=== PATIENT | female | born 1945 | race Caucasian/White ===

== ENCOUNTER 2016-04-19 09:11 | Inpatient (IN) | payer OTHER ==
[2016-03-27 08:21] VITALS: BMI 39.0
--- NOTE | 2016-03-27 09:04 | PAT Medication Instructions ---
Service Date Mar 27, 2016. Current Home Medication List Atorvastatin Calcium (Lipitor), 80 MG PO DAILY Betahistine Hydrochloride (Bul (Betahistine Dihydrochlori), 16 MG PO BID Gabapentin (Neurontin), 900 MG PO HS Hydrocortisone 1% (Hydrocortisone 1%), 1 DOSE TOP UD Hydroxyzine HCl (Hydroxyzine HCl), 1 TAB PO Q6H PRN for itching and sleep Levothyroxine Sodium (Levothyroxine Sodium), 1 TAB PO QAM Lisinopril/Hctz (Zestoretic 20MG/25MG), 1 TAB PO QAM Magnesium Chloride (Slow-Mag Tab), 2 TAB PO DAILY Melatonin (Melatonin Maximum Strengt), 10 MG PO HS Metformin Hcl Er (Glucophage Er), 2 TABS PO BID Omeprazole (Prilosec), 20 MG PO QAM Ropinirole (Requip), 3 TAB PO HS Triamcinolone Acet 0.1% (Aristocort 0.1%), 1 DOSE TOP BID Venlafaxine Hcl (Venlafaxine Extended Rel), 3 TABS PO QAM Zinc Sulfate (Zinc Sulfate), 220 MG PO QAM [miconazole 2% powder], 1 DOSE TOP UD Medication Instructions For Your Scheduled Surgery - Hold the following medications 48 hours prior to surgery: Metformin Hcl Er (Glucophage Er), 2 TABS PO BID - Hold the following medications 24 hours prior to surgery: Ropinirole (Requip), 3 TAB PO HS Hydrocortisone 1% (Hydrocortisone 1%), 1 DOSE TOP UD [miconazole 2% powder], 1 DOSE TOP UD Triamcinolone Acet 0.1% (Aristocort 0.1%), 1 DOSE TOP BID - Hold the following medications the morning of surgery: Zinc Sulfate (Zinc Sulfate), 220 MG PO QAM Lisinopril/Hctz (Zestoretic 20MG/25MG), 1 TAB PO QAM Magnesium Chloride (Slow-Mag Tab), 2 TAB PO DAILY - TAKE the following medications the morning of surgery with a sip of water OTHERWISE NOTHING TO EAT OR DRINK AFTER MIDNIGHT: Atorvastatin Calcium (Lipitor), 80 MG PO DAILY Levothyroxine Sodium (Levothyroxine Sodium), 1 TAB PO QAM Omeprazole (Prilosec), 20 MG PO QAM Venlafaxine Hcl (Venlafaxine Extended Rel), 3 TABS PO QAM Betahistine Hydrochloride (Bul (Betahistine Dihydrochlori), 16 MG PO BID - Take the following medications as scheduled the night before surgery: Gabapentin (Neurontin), 900 MG PO HS Hydroxyzine HCl (Hydroxyzine HCl), 1 TAB PO Q6H PRN for itching and sleep Melatonin (Melatonin Maximum Strengt), 10 MG PO HS Betahistine Hydrochloride (Bul (Betahistine Dihydrochlori), 16 MG PO BID If you have any questions please call us at [phone] (Otilia Busby PA-C ) or [phone] or [phone]
[2016-03-27 10:37] LABS: PROTHROMBIN TIME (PATIENT) 10.3 SECONDS (9.0-12.0)
--- NOTE | 2016-04-16 14:36 | HISTORY & PHYSICAL EXAMINATION ---
DATE OF ADMISSION: 04/19/2016 CHIEF COMPLAINT: Right knee pain. HISTORY OF PRESENT ILLNESS: This is a patient who has been treated conservatively for right knee osteoarthritis. She has failed all conservative management and now with right knee arthritis. She is currently being set up for right total knee arthroplasty. PAST MEDICAL HISTORY: Sleep apnea with use of CPAP, diabetes, history of neck and lower back pain, acid reflux, obesity. SOCIAL HISTORY: The patient denies alcohol and tobacco use. FAMILY HISTORY: Noncontributory. PAST SURGICAL HISTORY: Left knee surgery and a spinal surgery. ALLERGIES: No known drug allergies. CURRENT MEDICATIONS: Atorvastatin, venlafaxine, clonazepam, tirosint, lisinopril and ibuprofen. OBJECTIVE PHYSICAL EXAMINATION: GENERAL: The patient is alert and oriented x3. She is in no acute distress. She is a well-dressed, well-nourished 70-year-old female. Her affect is appropriate. CARDIOVASCULAR: Heart has a regular rhythm and rate without murmurs. LUNGS: Clear to auscultation bilaterally. Dorsalis pedis, posterior tib pulse +2/4. Cap refill is less than 2 seconds. LYMPHATICS: No evidence of any swollen lymph nodes. MUSCULOSKELETAL: The patient has an antalgic gait favoring the right lower extremity. Upon inspection of the right lower extremity, there is swelling noted of the right knee. There is also a mild to moderate knee effusion. With palpation, she has tenderness at the medial and lateral joint spaces. There is pain and crepitation noted with the right knee with passive and active range of motion. She has decrease in strength secondary to pain. SKIN: There are no scars, rashes or ulcers noted right lower extremity. NEUROLOGIC: Sensation normal intact distally right lower extremity. X-RAY EXAM: Multiple views of the right knee demonstrate severe osteoarthritis of the right knee with subchondral sclerosis and spurring. ASSESSMENT AND DIAGNOSES: Right knee osteoarthritis. PLAN: Above assessment was discussed with the patient. At this time it was recommended the patient undergo a right total knee arthroplasty. All potential risks, benefits, complications, alternatives and rehab have been discussed with the patient. The plan for DVT prophylaxis will be aspirin 81 mg twice per day for 30 days postoperative. The patient wishes to proceed with the surgery as indicated and will be scheduled for the surgery on 04/19/2016. BRENDA
[~2016-04-19] VITALS: Ht 160 cm; Wt 102.3 kg
[2016-04-19] VITALS (8 sets, daily range): BP systolic 143–168; BP diastolic 75–84; PULSE 68–80; TEMP 36.3–37.2; O2SAT 91–96; Ht 160 cm; Wt 102.3 kg
[~2016-04-19 09:11] MED LIST: ACETAMINOPHEN 500 MG TAB PO SCH; ATR25 PO; BETAPOW PO; BUPIVACAINE 0.5 % 5 MG/1 ML PF 10ML VIAL ONE; CEFAZOLIN 2000 MG/60 ML D5W 60 ML IV SCH; CeleBREX 200 MG CAP PO SCH; DEXAMETHASONE 4 MG TAB PO SCH; FAMOTIDINE 20 MG TAB PO SCH; GABA-113 PO; GABAPENTIN 300 MG CAP PO SCH; HYDCR1CL TOP; LACTATED RINGER'S 1000ML 1,000 ML IV SCH; LACTATED RINGER'S 1000ML IV SCH; LACTATED RINGER'S 500 ML IV SCH; LEVO125T4 PO; LISI-788 PO; MELATAB2 PO; METF500T5 PO; METOCLOPRAMIDE HCL 10 MG TAB PO SCH; MICONAZOLE 2% TOP; ROPI0.5T15 PO; ROPIVACAINE 5MG/ML 30 ML 150 MG, BUPIVACAINE/EPINEPHR 0.5% MPF 30 ML, KETOROLAC TROMETH... INFIL SCH; VENL75CA73 PO
[2016-04-19] MEDS ORDERED: MIDAZOLAM HCL 1 MG/ML 2ML VIAL ONE (09:17)
[2016-04-19] MEDS ORDERED: FENTANYL CITRATE INJ 50 MCG/1 ML 2 ML VIAL ONE (09:18)
[2016-04-19] MEDS ORDERED: NURSING VERBAL MED ORDER STA (09:44)
[2016-04-19] MEDS ORDERED: ORTHO JOINT ANESTHETIC ONE (09:49)
[2016-04-19] MEDS ORDERED: ONDANSETRON INJ 2 MG/ML 2 ML VIAL IV PRN ×2 (10:45→13:45)
[2016-04-19] MEDS ORDERED: EpHEDrine SULFATE INJ 50 MG/ML AMP IV PRN (10:45)
[2016-04-19] MEDS ORDERED: ATROPINE SULFATE 0.1 MG/ML 5ML SYR IV PRN (10:45)
[2016-04-19] MEDS ORDERED: FENTANYL CITRATE INJ 50 MCG/1 ML 2 ML VIAL IV PRN (10:45)
[2016-04-19] MEDS: TRANEXAMIC ACID INJ 1,000 MG in SODIUM CHLORIDE 0.9% 100ML 100 ML IV SCH ×2 (10:48→15:34)
--- NOTE | 2016-04-19 10:57 | History & Physical Bridge Note ---
H&P Re-Evaluation Bridge Note: I have examined the patient, reviewed the History & Physical and in the interval since the performance of the History & Physical I have noted the following changes of clinical significance: No changes noted
[2016-04-19] MEDS ORDERED: PROPOFOL IV EMULSION 10 MG/ML 20 ML VIAL IV ONE (12:17)
[2016-04-19] MEDS ORDERED: LIDOCAINE HCL 2% 2 ML VIAL (20MG/ML) ONE (12:17)
[2016-04-19] MEDS ORDERED: PHENYLEPHRINE 100MCG/ML 5ML SYR ONE (12:18)
--- NOTE | 2016-04-19 13:21 | [facility] Post Operative Brief Note ---
Immediate Operative Summary Operative Date Apr 19, 2016. Pre-Operative Diagnosis Right Knee Degenerative Joint Disease, Osteoarthritis Post-Operative Diagnosis Right Knee Degenerative Joint Disease, Osteoarthritis Procedure(s) Performed Right Total Knee Arthroplasty w/ Seda Lemons [address] Tunde Del Real Drain Tile Machine Operator Surgeon(s) Quincy Diaz PA-C Estimated Blood Loss 10mL Findings See Dict Specimens A. Right Knee Bone and Tissue Drains HV x 2 Anesthesia Spinal w/ sedation, Adductor Canal block, Intraarticular Joint Injection Complication(s) None Disposition Recovery Room / PACU
[2016-04-19] MEDS ORDERED: BACITRACIN 50000 UNIT VIAL IR ONE (13:22)
[2016-04-19] MEDS ORDERED: POVIDONE-IODINE OP SOLN 30 ML BTL TOP ONE (13:22)
[2016-04-19] MEDS ORDERED: ZOLPIDEM TARTRATE 5 MG TAB PO PRN (13:45)
[2016-04-19] MEDS ORDERED: MAGNESIUM HYDROXIDE SUSP 30 ML UDC PO PRN (13:45)
[2016-04-19] MEDS ORDERED: hydrOXYzine HCL 25 MG TAB PO PRN (13:45)
[2016-04-19] MEDS ORDERED: DiphenhydrAMINE HCL 50 MG/ML VIAL IV PRN (13:45)
[2016-04-19] MEDS ORDERED: ALUMINUM/MAGNESIUM/SIMETH (MAALOX MAX) 30 ML UDC PO PRN (13:45)
[2016-04-19] MEDS ORDERED: MoRPHine SULFATE 2 MG/ML CARP IV PRN ×2 (13:45→15:15)
[2016-04-19] MEDS ORDERED: BISACODYL 10 MG SUPP PR PRN (13:45)
--- NOTE | 2016-04-19 13:50 | OPERATIVE REPORT ---
DATE OF OPERATION: 04/19/2016 PREOPERATIVE DIAGNOSES: 1. Right knee degenerative joint disease. 2. Osteoarthritis, right knee. POSTOPERATIVE DIAGNOSES: Same. PROCEDURE: Right total knee arthroplasty using a [employer] II MRI matched knee, size 4 femur, size 2 tibia, 13 mm posterior stabilized polyethylene and a 29 mm patella. SURGEON: Dr. Del Real. WIDE AREA NETWORK ADMINISTRATOR: ROD Salazar, who was present for patient positioning, sterile prep and drape, management of retractors and instruments. He was present through the critical portions of the case including wound closure, application of sterile dressing and transport of the patient to recovery. ANESTHESIA: Spinal sedation and adductor canal block with intraarticular joint injection. SPECIMENS: Bone and tissue from the right knee. DRAINS: Hemovac x2. COMPLICATIONS: None. BLOOD LOSS: 15 mL PERTINENT HISTORY: This is a 70-year-old woman who had suffered from progressive chronic and worsening right knee pain and degenerative joint disease. This has been ongoing for several years. She has attempted conservative management including shoewear modification, activity modification, anti-inflammatories, rest, use of an assistive device, use of a brace, intraarticular steroid injections, physical therapy, home exercises and viscosupplementation. She eventually failed all measures and opted for surgical reconstruction. The radiographs demonstrated complete loss of joint space, marginal osteophytes, subchondral sclerosis and subchondral cysts within the joint. The patient was scheduled for surgery as indicated. OPERATION AND FINDINGS: PROCEDURE: The patient was taken to the Operating Suite and placed supine on the Operating Room table after the patient had been administered spinal epidural anesthetic and femoral nerve block in the preop holding area. The patient was sedated. The Proper operative site was identified and the consent was reviewed. The tourniquet was placed high on the right lower extremity. Right lower extremity was then sterilely prepped and draped in the usual fashion. Elevated and exsanguinated with an Esmarch bandage. Tourniquet inflated to 350 mmHg. Next a midline 10-blade scalpel incision was made directly over the middle one-third of the patella extending to the level of the tibial tubercle. The incision was deepened through the subcutaneous tissue and meticulous hemostasis with electrocautery. Full-thickness skin flaps were developed taking care to avoid neurovascular bundles. Next, median parapatellar capsular incision was made 10-blade scalpel after the superior medial corner had been marked with a marking pen for later reapproximation. Next, patella was everted. Soft tissue releases were performed of the knee including along the anterior medial corner to the level of the MCL which was protected and released adjacent to the MCL with Feuntes elevator. Fat pad was resected anteriorly and small half crockett portion of tissue was resected at the superior margin of the dermal articular surface. Next, the patella thickness was measured with caliper and held in everted position with Mandi. Next, sagittal saw was used to make orthogonal cuts to the level of the patellar nose. Caliper was used to remeasure the patella and the appropriate sized patellar button, in this case size 29 mm was felt to be most appropriate. The alignment guide was then put in place. Peg holes were drilled and alignment guide was then removed. Next, the femoral cutting block was placed in the distal aspect of the femur and pinned in place. Next the distal femoral cut was made based off the patient's anatomy and MRI patient matched cutting block. Next, a size 4 distal 4-in-1 cutting block was tamped in place then stabilized with pins. Next, the appropriate soft tissue retraction was made and anterior chamfer and posterior chamfer cuts were made with the sagittal saw. Next, the 4-in-1 cutting block was then removed followed by removal of all bone fragments. Next, attention was then directed toward the proximal tibia. Blunt Justice was placed posterior to the tibia to protract it anteriorly and median and lateral sharp Justice retractors were placed. Soft tissue and portion of the menisci were then resected at this time and MRI matched proximal tibial cutting block was then pinned in place and proximal tibial cut was made with sagittal saw. Alignment guide was removed. Pins were removed and the proximal fragment of the tibia was then sharply excised and removed. Next, proximal tibial tray trial size 2 was then pinned in place and this was felt to be well matched for the patient's anatomy, pinned in place and keel punch was then utilized with mallet. Keel punch was then removed and cervical laminar kennel keeper was then placed in the medial compartment. The lateral compartment was then inspected for osteophytes and soft tissue impingement. There was found to be none. I then switched to the lateral compartment and medial compartment was then debrided of any soft tissue impingement. Next the laminar kennel keeper was removed and the femoral trial, in this case size 4 was then malleted in place, pinned and then femoral notch milling guide was then placed anteriorly. This was then reamed and then punched with sharp punch and mallet. Next, the distal aspect of the femur was then inserted in notch guide and size 13 mm poly was inserted, reduced. Patellar button was then placed in trial and range of motion was performed. Next after range of motion and stability test was performed the implants were found to be appropriate size. Trials were all removed. The posterior capsule was injected with Orthomix. Next the joint was then cleansed with pulsatile lavage using approximately 3 liters normal saline with Bacitracin additive. Next all bony surfaces were the suctioned and drained and standard cementing technique was performed with Palacos G and all excess cement was then removed from around the implant site. 13 mm posterior stabilized polyethylene bearing was implanted and checked for stability. The patellar button was then cemented in place and held in place with patellar clamp. Next, double lumen 10 Wallisian Hemovac drain was then placed and exiting anterolaterally and the capsule was closed using interrupted #1 Vicryl sutures. The dermis was closed using buried interrupted 2-0 Vicryl and the skin closed with skin isis. A sterile compressive dressing was applied from the toes to the groin and overwrapped with Oscar wrap. Tourniquet was released. The patient was awakened and taken to recovery in stable condition. I attest to the content of the Intraoperative Record and any orders documented therein. Any exceptions are noted below. BRENDA
--- NOTE | 2016-04-19 14:16 | DIAGNOSTIC IMAGING REPORT ---
TWO VIEWS RIGHT KNEE CLINICAL HISTORY: Postoperative examination. FINDINGS: AP and crosstable lateral portable views of the right knee are obtained. A right knee arthroplasty is in near anatomic alignment. There has been undersurface remodeling of the patella. No acute fracture is seen. There are expected postoperative changes around the knee including skin clips, a surgical drain, soft tissue edema, and subcutaneous gas. IMPRESSION: Expected postoperative changes status post right knee arthroplasty. No acute fracture is seen. Electronically signed by: Deep Smith M.D. 04/19/2016 2:14 PM Dictated Date/Time: 04/19/2016 2:14 PM
--- NOTE | 2016-04-19 15:08 | Anesthesiology Progress Note ---
Anesthesia Post Op Note Date & Time Apr 19, 2016 at 15:08 Vital Signs Pain Intensity: 0.0 Vital Signs Past 12 Hours Date Time Temp Pulse Resp B/P Pulse Ox O2 Delivery O2 Flow Rate FiO2 04/19/16 14:35 Nasal Cannula 04/19/16 14:35 36.3 79 12 145/82 95 Nasal Cannula 3.0 04/19/16 14:35 95 Nasal Cannula 3.0 04/19/16 14:23 132/70 04/19/16 14:21 81 14 04/19/16 14:21 81 14 92 04/19/16 14:18 130/74 04/19/16 14:16 79 16 91 04/19/16 14:16 80 16 04/19/16 14:13 137/81 04/19/16 14:11 78 13 04/19/16 14:11 78 13 91 04/19/16 14:08 148/63 04/19/16 14:06 80 14 93 04/19/16 14:06 80 14 04/19/16 14:05 37 82 15 04/19/16 14:05 81 15 92 04/19/16 14:03 150/66 04/19/16 14:00 80 15 94 04/19/16 14:00 80 15 04/19/16 13:58 149/79 04/19/16 13:55 82 14 95 04/19/16 13:55 82 14 04/19/16 13:53 152/73 04/19/16 13:50 78 14 99 04/19/16 13:50 78 14 04/19/16 13:48 152/91 04/19/16 13:45 80 16 04/19/16 13:45 80 16 99 04/19/16 13:43 165/72 04/19/16 13:40 79 20 100 04/19/16 13:40 80 20 04/19/16 13:38 168/85 04/19/16 13:36 188/86 04/19/16 13:35 36.4 82 16 168/85 96 Nasal Cannula 2 04/19/16 13:35 80 04/19/16 13:35 80 93 04/19/16 09:53 37.2 80 18 155/75 93 Room Air Notes Mental Status: alert / awake / arousable, participated in evaluation Pt Amnestic to Procedure: Yes Nausea / Vomiting: adequately controlled Pain: adequately controlled Airway Patency, RR, SpO2: stable & adequate BP & HR: stable & adequate Hydration State: stable & adequate Neuraxial Anesthesia: was administered, sensory block is resolving Anesthetic Complications: no major complications apparent
[2016-04-19] MEDS ORDERED: MoRPHine SULFATE 10 MG/ML CARP/VIAL IV PRN (15:15)
[2016-04-19] MEDS ORDERED: MoRPHine SULFATE 4 MG/ML 1 ML CARP\\VIAL IV PRN (15:15)
[2016-04-19] MEDS: SODIUM CHLORIDE 0.9% 1000ML 1,000 ML IV SCH ×2 (15:52→23:47)
[2016-04-19] MEDS ORDERED: GLUCOSE 40% GEL 15 GM TUBE PO PRN (16:30)
[2016-04-19] MEDS ORDERED: GLUCAGON FOR INJ 1 MG VIAL SQ PRN (16:30)
[2016-04-19] MEDS ORDERED: GLUCOSE 10 TABS/TUBE PO PRN (16:30)
[2016-04-19] MEDS ORDERED: DEXTROSE 50% 50 ML SYR IV PRN (16:30)
--- NOTE | 2016-04-19 16:55 | Medical Consult ---
Consultation Date of Consultation: Apr 19, 2016. Attending Physician: Tunde Del Real D.O. Reason for Consultation: Postop Medical Management History of Present Illness Patient seen and examined. 70 year old female with PMHx of DM2, RENÉ, HTN, Hypothyroidism, and other problems outline below is seen in consultation follow RTKA by Dr. Del Real. Patient is feeling drowsy after surgery. Otherwise she reports feeling well, she denies fevers, chills, pain, URI symptoms, chest pain , SOB, nausea, vomiting, diarrhea, dysuria, calf pain and edema. She isn't sure the last time she had a BM. reports patient may have had a DVT in the past. She denies any questions or concerns at this time. Past Medical/Surgical History Medical Problems: (1) Diabetes mellitus, type II Status: Chronic (2) Dyslipidemia Status: Chronic (3) Generalized anxiety disorder Status: Chronic (4) HTN (hypertension) Status: Chronic (5) Hypothyroidism Status: Chronic (6) Meniere's disease Status: Chronic (7) Restless leg syndrome Status: Chronic Surgical Problems: (1) H/O sinus surgery Status: Resolved (2) History of carpal tunnel surgery Status: Resolved (3) History of orthopedic surgery Permanent Comment: bilat heel surgery Status: Resolved (4) History of tubal ligation Status: Resolved (5) Hx of total knee arthroplasty Permanent Comment: Dr. Nasima Silverman Status: Resolved Family History Diabetes mellitus FH: cancer FH: heart disease Social History Smoking Status: Former Smoker Alcohol Use: none Drug Use: none Marital Status: Housing Status: lives with family Occupation Status: retired Allergies Coded Allergies: No Known Allergies (Verified , 04/19/16) Current Inpatient Medications Current Inpatient Medications Medications (Trade) Dose Ordered Sig/Laury Route Start Time Stop Time Status Last Admin Dose Admin Cefazolin Sodium (Ancef 2000mg/60 ml D5W) 60 ml @ 100 mls/hr PREOP IV 04/19/16 06:00 04/19/16 18:00 04/19/16 11:16 100 MLS/HR Acetaminophen (Tylenol Tab) 1,000 mg PREOP PO 04/19/16 06:00 04/19/16 18:00 Celecoxib (CeleBREX CAP) 200 mg PREOP PO 04/19/16 06:00 04/19/16 18:00 04/19/16 10:17 200 MG Dexamethasone (Decadron Tab) 8 mg PREOP PO 04/19/16 06:00 04/19/16 18:00 04/19/16 10:18 8 MG Famotidine (Pepcid Tab) 20 mg PREOP PO 04/19/16 06:00 04/19/16 18:00 04/19/16 10:17 20 MG Gabapentin (Neurontin Cap) 300 mg PREOP PO 04/19/16 06:00 04/19/16 18:00 04/19/16 10:17 300 MG Metoclopramide HCl (Reglan Tab) 10 mg PREOP PO 04/19/16 06:00 04/19/16 18:00 04/19/16 10:18 10 MG Gabapentin (Neurontin Cap) 900 mg HS PO 04/19/16 21:00 05/19/16 20:59 Hydroxyzine HCl (Vistaril Tab) 25 mg Q6H PRN PO 04/19/16 13:45 05/19/16 13:44 Levothyroxine Sodium (Synthroid Tab) 125 mcg DAILYBB PO 04/20/16 06:00 05/20/16 05:59 HCTZ/Lisinopril (Prinzide 20-25MG Tab) 1 tab QAM PO 04/20/16 09:00 05/20/16 08:59 Ropinirole HCl (Requip Tab) 1.5 mg HS PO 04/19/16 21:00 05/19/16 20:59 Venlafaxine HCl (effeXOR EXTENDED REL CAP) 225 mg QAM PO 04/20/16 09:00 05/20/16 08:59 Miscellaneous Information (Order Awaiting Action) 1 ea QS N/A 04/19/16 16:00 05/19/16 15:59 Insulin Aspart SLIDING SCALE G... ACHS SC 04/19/16 16:00 05/19/16 15:59 Sodium Chloride 1,000 ml @ 100 mls/hr Q10H IV 04/19/16 13:37 04/20/16 13:36 04/19/16 15:52 100 MLS/HR Cefazolin Sodium/ Dextrose (Ancef Iv/D5 50ml) 60 ml @ 100 mls/hr Q8H IV 04/19/16 20:00 04/20/16 04:35 Oxycodone HCl (Roxicodone Immediate Rel Tab) 1 TABLET FOR PAIN RATING... Q4H PRN PO 04/19/16 13:45 05/03/16 13:44 Oxycodone HCl (Oxycontin Tab) 10 mg Q12 PO 04/19/16 21:00 05/03/16 20:59 Acetaminophen (Tylenol Tab) 1,000 mg Q8H PO 04/19/16 22:00 05/19/16 21:59 Magnesium Hydroxide (Milk Of Magnesia Susp) 30 ml Q6H PRN PO 04/19/16 13:45 05/19/16 13:44 Bisacodyl (Dulcolax Supp) 10 mg DAILY PRN IN 04/19/16 13:45 05/19/16 13:44 Senna (Senokot Tab) 17.2 mg HS PO 04/19/16 21:00 05/19/16 20:59 Docusate Sodium (coLACE CAP) 100 mg BID PO 04/19/16 21:00 05/19/16 20:59 Diphenhydramine HCl (Benadryl Inj) 25 mg Q8H PRN IV 04/19/16 13:45 05/19/16 13:44 Al Hydrox/Mg Hydrox/Simethicone (Maalox Max Susp) 15 ml Q4H PRN PO 04/19/16 13:45 05/19/16 13:44 Zolpidem Tartrate (Ambien Tab) 5 mg HSZ PRN PO 04/19/16 13:45 05/19/16 13:44 Multivitamins (Multivitamin Tab) 1 tab QAM PO 04/20/16 09:00 05/20/16 08:59 Ondansetron HCl (Zofran Inj) 4 mg Q6H PRN IV 04/19/16 13:45 05/19/16 13:44 Ferrous Gluconate (Ferrous Gluconate Tab) 324 mg TIDM PO 04/19/16 17:45 05/19/16 17:59 Pantoprazole Sodium (Protonix Tab) 40 mg QAM PO 04/20/16 09:00 05/20/16 08:59 Aspirin (Ecotrin Tab) 81 mg BID PO 04/19/16 21:00 05/19/16 20:59 Morphine Sulfate (MoRPHine SULFATE INJ) 2 mg Q4HWA PRN IV 04/19/16 15:15 05/03/16 15:14 Morphine Sulfate (MoRPHine SULFATE INJ) 4 mg Q4HWA PRN IV 04/19/16 15:15 05/03/16 15:14 Morphine Sulfate (MoRPHine SULFATE INJ) 6 mg Q4HWA PRN IV 04/19/16 15:15 05/03/16 15:14 Non-Formulary Medication (Non-Formulary Patient'S Own Med) 1 ea BID PO 04/19/16 21:00 05/19/16 20:59 Glucose (Glucose 40% Gel) 15-30 GRAMS 15 GRAMS... UD PRN PO 04/19/16 16:30 05/19/16 16:29 Glucose (Glucose Chew Tab) 4-8 Tablets 4 Tabl... UD PRN PO 04/19/16 16:30 05/19/16 16:29 Dextrose (Dextrose 50% 50ML Syringe) 25-50ML OF 50% DW IV FOR... UD PRN IV 04/19/16 16:30 05/19/16 16:29 Glucagon (Glucagon Inj) 1 mg UD PRN SQ 04/19/16 16:30 05/19/16 16:29 Review of Systems See above for pertinent positives & negatives. A total of 10 systems reviewed and were otherwise negative. Physical Exam Date Time Temp Pulse Resp B/P Pulse Ox O2 Delivery O2 Flow Rate FiO2 04/19/16 15:35 36.9 73 18 145/78 96 Nasal Cannula 3.0 04/19/16 15:05 36.6 72 18 143/75 95 Nasal Cannula 3.0 04/19/16 14:35 Nasal Cannula 04/19/16 14:35 36.3 79 12 145/82 95 Nasal Cannula 3.0 04/19/16 14:35 95 Nasal Cannula 3.0 04/19/16 14:23 132/70 04/19/16 14:21 81 14 04/19/16 14:21 81 14 92 04/19/16 14:18 130/74 04/19/16 14:16 79 16 91 04/19/16 14:16 80 16 04/19/16 14:13 137/81 04/19/16 14:11 78 13 04/19/16 14:11 78 13 91 04/19/16 14:08 148/63 04/19/16 14:06 80 14 93 04/19/16 14:06 80 14 04/19/16 14:05 37 82 15 04/19/16 14:05 81 15 92 04/19/16 14:03 150/66 04/19/16 14:00 80 15 94 04/19/16 14:00 80 15 04/19/16 13:58 149/79 04/19/16 13:55 82 14 95 04/19/16 13:55 82 14 04/19/16 13:53 152/73 04/19/16 13:50 78 14 99 04/19/16 13:50 78 14 04/19/16 13:48 152/91 04/19/16 13:45 80 16 04/19/16 13:45 80 16 99 04/19/16 13:43 165/72 04/19/16 13:40 79 20 100 04/19/16 13:40 80 20 04/19/16 13:38 168/85 04/19/16 13:36 188/86 04/19/16 13:35 36.4 82 16 168/85 96 Nasal Cannula 2 04/19/16 13:35 80 04/19/16 13:35 80 93 04/19/16 09:53 37.2 80 18 155/75 93 Room Air General Appearance: + pertinent finding (WD/WN 70 year old female drowsy but awakens to verbal stimuli, lying inbed in NAD with at bedside ) Head: normocephalic, atraumatic Eyes: PERRL, EOMI, sclerae normal ENT: hearing grossly normal, pharynx normal Neck: supple, no JVD, trachea midline Respiratory/Chest: chest non-tender, lungs clear, normal breath sounds, no respiratory distress, no accessory muscle use Cardiovascular: regular rate, rhythm, no edema, no gallop, no JVD, no murmur, normal peripheral pulses Abdomen/GI: normal bowel sounds, non tender, soft Extremities/Musculoskelatal: no calf tenderness, normal capillary refill, no pedal edema, + pertinent finding (dressing I/C/D to right leg, with surgical drain in place ) Neurologic/Psych: + pertinent finding (drowsy but arousable with verbal stimuli , oriented x 3, no motor or sensory deficits noted on gross exam ) Skin: normal color, warm/dry, no rash Lymphatic: no adenopathy Laboratory Results Last 24 Hours Test 04/19/16 09:59 2 13:42 Bedside Glucose 123 mg/dl 115 mg/dl Assessment & Plan RIGHT TOTAL KNEE ARTHROPLASTY -POD#[address] Del Real -Management as per ortho to include- pain control, bowel regimen, DVT prophylaxis, PT/OT, incentive spirometry, wound care -EBL 15 ml -Follow H&H daily for postop anemia -CBC, PRP, Mg daily DM2 -A1c 7 -hold metformin -SSI coverage -BSG AC HS -consistent carb diet HTN -stable -continue HCTZ/Lisinopril HYPOTHYROIDISM -continue Synthroid RLS -continue Requip RENÉ -CPAP ordered DEPRESSION -continue Effexor DVT PROPHYLAXIS: per ortho CODE STATUS: FULL CODE DISPO:per ortho Patient seen in collaboration with Dr. Tran Thank you for this consultation. We will follow the patient with you during their hospital stay. You can reach a [facility] via pager @ . Attending Addendum Pt was seen and examined. Agreed with Gayle's PA exam, assessment and Plan. s/ p total right knee replacement. Pt said that she is ok. denies any chest pain, palpitation, dizziness and SOB. General- no acute distress Head- atraumatic Eyes- PERRL, EOMI ENT- oropharynx clear Neck- supple, no JVD Lungs- clear to auscultation and percussion Heart- regular rhythm; no murmur Abdomen- normal bowel sounds, soft Extremities- no calf tenderness Neuro- alert, oriented, PERRL, EOMI Skin- warm & dry RIGHT TOTAL KNEE ARTHROPLASTY -POD#[address] Del Real - Continue pain management - Incentive spirometry -monitor h/h DM2 -A1c 7 -hold metformin -SSI coverage -monitor BS Please refer to Gayle's PA documentation for other problems. Thank you for the consultation Lilian Tran MD
[2016-04-19] MEDS: INSULIN ASPART 100 UNITS/ML 3 ML PEN SC SCH ×2 (17:37→21:12)
[2016-04-19] MEDS: FERROUS GLUCONATE 324 MG TAB PO SCH (17:39)
[2016-04-19] MEDS: CEFAZOLIN IV 2,000 MG in DEXTROSE 5% 50ML 50 ML IV SCH (19:51)
[2016-04-19] MEDS: OXYCODONE HCL IR 5 MG TAB (IMMEDIATE RELEASE) PO PRN (19:52)
[2016-04-19] MEDS: OXYCODONE HCL 10 MG TABCR (OXYCONTIN) PO SCH (21:00)
[2016-04-19] MEDS: BETAHISTINE HCL PO SCH (21:05)
[2016-04-19] MEDS: DOCUSATE SODIUM 100 MG CAP PO SCH (21:06)
[2016-04-19] MEDS: SENNA 8.6 MG TAB PO SCH (21:07)
[2016-04-19] MEDS: ROPINIROLE HCL 1 MG TAB PO SCH (21:07)
[2016-04-19] MEDS: ASPIRIN 81 MG ECTAB PO SCH (21:09)
[2016-04-19] MEDS: GABAPENTIN 300 MG CAP PO SCH (21:09)
[2016-04-19] MEDS: ACETAMINOPHEN 500 MG TAB PO SCH (22:00)
[2016-04-20 03:16] VITALS: BP 151/80; PULSE 63; TEMP 36.8; O2SAT 94
[2016-04-20] MEDS: CEFAZOLIN IV 2,000 MG in DEXTROSE 5% 50ML 50 ML IV SCH (04:12)
[2016-04-20] MEDS: ACETAMINOPHEN 500 MG TAB PO SCH ×3 (05:44→21:11)
[2016-04-20] MEDS: LEVOTHYROXINE 125 MCG TAB PO SCH (05:44)
[2016-04-20 06:45] LABS: HEMATOCRIT 33.5 % (37-47); MEAN CELL VOLUME 90.1 fL (80-100); MEAN CORPUSCULAR HEMOGLOBIN 29.6 pg (25-34); MEAN CORPUSCULAR HGB CONC 32.8 g/dl (32-36); MEAN PLATELET VOLUME 10.2 fL (7.4-10.4); PLATELET COUNT 333 K/uL (130-400); RED BLOOD COUNT 3.72 M/uL (4.2-5.4); WHITE BLOOD COUNT 13.92 K/uL (4.8-10.8)
[2016-04-20 06:56] LABS: BUN/CREATININE RATIO 16.3 (10-20); CALCIUM 8.5 mg/dl (8.5-10.1); CREATININE 1.1 mg/dl (0.60-1.20); MAGNESIUM 1.6 mg/dl (1.8-2.4); POTASSIUM 4.1 mmol/L (3.5-5.1)
[2016-04-20 07:13] VITALS: BP 152/81; PULSE 81; TEMP 36.5; O2SAT 95
--- NOTE | 2016-04-20 07:52 | Orthopedic Progress Note ---
Orthopedic Progress Note Date of Service Apr 20, 2016. Subjective Post OP Day: 1 Reports: feeling well, Denies: SOB, calf pain, chest pain, light headedness, nausea / vomiting Objective calves soft nontender, N/V intact, dressing C/D/I, A&O x3, toes mobile, hemovac drainage (225/75cc per shift) Date Time Temp Pulse Resp B/P Pulse Ox O2 Delivery O2 Flow Rate FiO2 04/20/16 07:13 36.5 81 19 152/81 95 Room Air 04/20/16 03:16 36.8 63 20 151/80 94 Room Air 04/19/16 23:48 Room Air 04/19/16 23:04 36.7 68 20 148/78 95 Room Air 04/19/16 20:28 36.6 71 18 152/81 91 Room Air 04/19/16 17:35 36.7 76 18 168/84 95 Nasal Cannula 3.0 04/19/16 16:35 36.3 70 16 156/82 95 Nasal Cannula 3.0 04/19/16 16:00 Nasal Cannula 3.0 04/19/16 15:35 36.9 73 18 145/78 96 Nasal Cannula 3.0 04/19/16 15:05 36.6 72 18 143/75 95 Nasal Cannula 3.0 04/19/16 14:35 Nasal Cannula 04/19/16 14:35 36.3 79 12 145/82 95 Nasal Cannula 3.0 04/19/16 14:35 95 Nasal Cannula 3.0 04/19/16 14:23 132/70 04/19/16 14:21 81 14 04/19/16 14:21 81 14 92 04/19/16 14:18 130/74 04/19/16 14:16 79 16 91 04/19/16 14:16 80 16 04/19/16 14:13 137/81 04/19/16 14:11 78 13 04/19/16 14:11 78 13 91 04/19/16 14:08 148/63 04/19/16 14:06 80 14 93 04/19/16 14:06 80 14 04/19/16 14:05 37 82 15 04/19/16 14:05 81 15 92 04/19/16 14:03 150/66 04/19/16 14:00 80 15 94 04/19/16 14:00 80 15 04/19/16 13:58 149/79 04/19/16 13:55 82 14 95 04/19/16 13:55 82 14 04/19/16 13:53 152/73 04/19/16 13:50 78 14 99 04/19/16 13:50 78 14 04/19/16 13:48 152/91 04/19/16 13:45 80 16 04/19/16 13:45 80 16 99 04/19/16 13:43 165/72 04/19/16 13:40 79 20 100 04/19/16 13:40 80 20 04/19/16 13:38 168/85 04/19/16 13:36 188/86 04/19/16 13:35 36.4 82 16 168/85 96 Nasal Cannula 2 04/19/16 13:35 80 04/19/16 13:35 80 93 04/19/16 09:53 37.2 80 18 155/75 93 Room Air Laboratory Results 24 Hours: Test 04/20/16 05:13 Hematocrit 33.5 % Hemoglobin 11.0 g/dL Assessment & Plan Assessment: POD#1 SP RIGHT TKA Inhouse Planning Pain Management: Celebrex, Oxycontin, PO Tylenol, Oxy IR DVT Prophylaxis: TEDs, SCDs, ASA Discharge Planning Discharge Planning: home with home health
[2016-04-20] MEDS: LISINOPRIL/HCTZ 20/25MG TAB PO SCH (08:28)
[2016-04-20] MEDS: MULTIVITAMIN TAB PO SCH (08:28)
[2016-04-20] MEDS: VENLAFAXINE HCL XR 75 MG CAPXR PO SCH (08:29)
[2016-04-20] MEDS: FERROUS GLUCONATE 324 MG TAB PO SCH ×3 (08:29→17:28)
[2016-04-20] MEDS: PANTOprazole SOD 40 MG TAB PO SCH (08:29)
[2016-04-20] MEDS: DOCUSATE SODIUM 100 MG CAP PO SCH ×2 (08:29→21:07)
[2016-04-20] MEDS: ASPIRIN 81 MG ECTAB PO SCH ×2 (08:29→21:07)
[2016-04-20] MEDS: BETAHISTINE HCL PO SCH ×2 (08:30→21:10)
[2016-04-20] MEDS: OXYCODONE HCL 10 MG TABCR (OXYCONTIN) PO SCH ×2 (08:33→21:10)
[2016-04-20] MEDS: INSULIN ASPART 100 UNITS/ML 3 ML PEN SC SCH ×4 (08:34→21:13)
[2016-04-20] MEDS: MAGNESIUM SULFATE 1GM / D5W 1 GM in PREMIXED IN D5W 100 ML IV SCH ×2 (09:35→10:36)
[2016-04-20] MEDS: SODIUM CHLORIDE 0.9% 1000ML 1,000 ML IV SCH (09:36)
[2016-04-20 16:30] VITALS: BP 152/78; PULSE 66; TEMP 36.4; O2SAT 96
--- NOTE | 2016-04-20 19:08 | Progress Note ---
Medicine Progress Note Date & Time of Visit: Apr 20, 2016 at 18:58. Subjective Pt was seen and examined Sitting in chair very comfortable with no distress pt said that she feels better today compare to yesterday after her knee procedure she said that the pain medication help she denies any chest pain, palpitation, dizziness and sob Pt said that she walked to the bathroom with day care assistant with a walker today. Objective Last 8 Hrs Date Time Temp Pulse Resp B/P Pulse Ox O2 Delivery O2 Flow Rate FiO2 04/20/16 16:30 36.4 66 16 152/78 96 Room Air 04/20/16 15:45 Room Air 04/20/16 11:25 Room Air Physical Exam: General- No acute distress, obese Head- atraumatic Eyes- PERRL, EOMI ENT- oropharynx clear Neck- supple, no JVD Lungs- clear to auscultation and percussion Heart- regular rhythm; no murmur Abdomen- normal bowel sounds, soft Extremities-no calf tenderness Neuro- alert, oriented x 3; PERRL, EOMI Skin- warm & dry Laboratory Results: Last 24 Hours Test 04/19/16 20:32 04/20/16 05:13 04/20/16 05:19 04/20/16 08:00 Bedside Glucose 187 mg/dl 158 mg/dl White Blood Count 13.92 K/uL Red Blood Count 3.72 M/uL Hemoglobin 11.0 g/dL Hematocrit 33.5 % Mean Corpuscular Volume 90.1 fL Mean Corpuscular Hemoglobin 29.6 pg Mean Corpuscular Hemoglobin Concent 32.8 g/dl RDW Standard Deviation 45.7 fL RDW Coefficient of Variation 13.8 % Platelet Count 333 K/uL Mean Platelet Volume 10.2 fL Sodium Level 142 mmol/L Potassium Level 4.1 mmol/L Chloride Level 109 mmol/L Carbon Dioxide Level 24 mmol/L Anion Gap 9.0 mmol/L Blood Urea Nitrogen 18 mg/dl Creatinine 1.10 mg/dl Est Creatinine Clear Calc Drug Dose 55.1 ml/min Estimated GFR () 59.3 Estimated GFR (Non- 51.2 BUN/Creatinine Ratio 16.3 Random Glucose 150 mg/dl Calcium Level 8.5 mg/dl Magnesium Level 1.6 mg/dl Test 04/20/16 11:06 04/20/16 16:59 Bedside Glucose 159 mg/dl 145 mg/dl Assessment & Plan RIGHT TOTAL KNEE ARTHROPLASTY -POD#[address] Del Real -Continue pain management -Hgb stable -Continue incentive spirometry -Continue monitor h/h - Continue PT/OT DM2 -A1c 7 -hold metformin -SSI coverage -BSG AC HS -consistent carb diet HTN -stable -continue HCTZ/Lisinopril -Stable HYPOTHYROIDISM -continue Synthroid RLS -continue Requip RENÉ -CPAP ordered DEPRESSION -continue Effexor DVT PROPHYLAXIS: as per ortho CODE STATUS FULL CODE Current Inpatient Medications: Current Inpatient Medications Medications (Trade) Dose Ordered Sig/Laury Route Start Time Stop Time Status Last Admin Dose Admin Gabapentin (Neurontin Cap) 900 mg HS PO 04/19/16 21:00 05/19/16 20:59 04/19/16 21:09 900 MG Hydroxyzine HCl (Vistaril Tab) 25 mg Q6H PRN PO 04/19/16 13:45 05/19/16 13:44 Levothyroxine Sodium (Synthroid Tab) 125 mcg DAILYBB PO 04/20/16 06:00 05/20/16 05:59 04/20/16 05:44 125 MCG HCTZ/Lisinopril (Prinzide 20-25MG Tab) 1 tab QAM PO 04/20/16 09:00 05/20/16 08:59 04/20/16 08:28 1 TAB Ropinirole HCl (Requip Tab) 1.5 mg HS PO 04/19/16 21:00 05/19/16 20:59 04/19/16 21:07 1.5 MG Venlafaxine HCl (effeXOR EXTENDED REL CAP) 225 mg QAM PO 04/20/16 09:00 05/20/16 08:59 04/20/16 08:29 225 MG Miscellaneous Information (Order Awaiting Action) 1 ea QS N/A 04/19/16 16:00 05/19/16 15:59 Insulin Aspart (novoLOG ASPART) SLIDING SCALE G... ACHS SC 04/19/16 16:00 05/19/16 15:59 04/20/16 17:29 5 UNITS Oxycodone HCl (Roxicodone Immediate Rel Tab) 1 TABLET FOR PAIN RATING... Q4H PRN PO 04/19/16 13:45 05/03/16 13:44 04/19/16 19:52 5 MG Oxycodone HCl (Oxycontin Tab) 10 mg Q12 PO 04/19/16 21:00 05/03/16 20:59 04/20/16 08:33 10 MG Acetaminophen (Tylenol Tab) 1,000 mg Q8H PO 04/19/16 22:00 05/19/16 21:59 04/20/16 14:23 1,000 MG Magnesium Hydroxide (Milk Of Magnesia Susp) 30 ml Q6H PRN PO 04/19/16 13:45 05/19/16 13:44 Bisacodyl (Dulcolax Supp) 10 mg DAILY PRN UT 04/19/16 13:45 05/19/16 13:44 Senna (Senokot Tab) 17.2 mg HS PO 04/19/16 21:00 05/19/16 20:59 04/19/16 21:07 17.2 MG Docusate Sodium (coLACE CAP) 100 mg BID PO 04/19/16 21:00 05/19/16 20:59 04/20/16 08:29 100 MG Diphenhydramine HCl (Benadryl Inj) 25 mg Q8H PRN IV 04/19/16 13:45 05/19/16 13:44 Al Hydrox/Mg Hydrox/Simethicone (Maalox Max Susp) 15 ml Q4H PRN PO 04/19/16 13:45 05/19/16 13:44 Zolpidem Tartrate (Ambien Tab) 5 mg HSZ PRN PO 04/19/16 13:45 05/19/16 13:44 Multivitamins (Multivitamin Tab) 1 tab QAM PO 04/20/16 09:00 05/20/16 08:59 04/20/16 08:28 1 TAB Ondansetron HCl (Zofran Inj) 4 mg Q6H PRN IV 04/19/16 13:45 05/19/16 13:44 Ferrous Gluconate (Ferrous Gluconate Tab) 324 mg TIDM PO 04/19/16 17:45 05/19/16 17:59 04/20/16 17:28 324 MG Pantoprazole Sodium (Protonix Tab) 40 mg QAM PO 04/20/16 09:00 05/20/16 08:59 04/20/16 08:29 40 MG Aspirin (Ecotrin Tab) 81 mg BID PO 04/19/16 21:00 05/19/16 20:59 04/20/16 08:29 81 MG Morphine Sulfate (MoRPHine SULFATE INJ) 2 mg Q4HWA PRN IV 04/19/16 15:15 05/03/16 15:14 Morphine Sulfate (MoRPHine SULFATE INJ) 4 mg Q4HWA PRN IV 04/19/16 15:15 05/03/16 15:14 Morphine Sulfate (MoRPHine SULFATE INJ) 6 mg Q4HWA PRN IV 04/19/16 15:15 05/03/16 15:14 Non-Formulary Medication (Non-Formulary Patient'S Own Med) 1 ea BID PO 04/19/16 21:00 05/19/16 20:59 04/20/16 08:30 1 EA Glucose (Glucose 40% Gel) 15-30 GRAMS 15 GRAMS... UD PRN PO 04/19/16 16:30 05/19/16 16:29 Glucose (Glucose Chew Tab) 4-8 Tablets 4 Tabl... UD PRN PO 04/19/16 16:30 05/19/16 16:29 Dextrose (Dextrose 50% 50ML Syringe) 25-50ML OF 50% DW IV FOR... UD PRN IV 04/19/16 16:30 05/19/16 16:29 Glucagon (Glucagon Inj) 1 mg UD PRN SQ 04/19/16 16:30 05/19/16 16:29
[2016-04-20] MEDS: GABAPENTIN 300 MG CAP PO SCH (21:08)
[2016-04-20] MEDS: SENNA 8.6 MG TAB PO SCH (21:08)
[2016-04-20] MEDS: ROPINIROLE HCL 1 MG TAB PO SCH (21:09)
[2016-04-20 23:04] VITALS: BP 151/69; PULSE 66; TEMP 36.7; O2SAT 92
[2016-04-21 05:35] LABS: HEMATOCRIT 32.6 % (37-47); MEAN CELL VOLUME 90.1 fL (80-100); MEAN CORPUSCULAR HEMOGLOBIN 29.6 pg (25-34); MEAN CORPUSCULAR HGB CONC 32.8 g/dl (32-36); PLATELET COUNT 343 K/uL (130-400); RED BLOOD COUNT 3.62 M/uL (4.2-5.4); WHITE BLOOD COUNT 10.99 K/uL (4.8-10.8)
[2016-04-21] MEDS: LEVOTHYROXINE 125 MCG TAB PO SCH (05:38)
[2016-04-21] MEDS: ACETAMINOPHEN 500 MG TAB PO SCH (05:38)
[2016-04-21 07:10] VITALS: BP 170/83; PULSE 72; TEMP 36.5; O2SAT 96
[2016-04-21] MEDS: LISINOPRIL/HCTZ 20/25MG TAB PO SCH (07:31)
[2016-04-21] MEDS: OXYCODONE HCL IR 5 MG TAB (IMMEDIATE RELEASE) PO PRN (07:43)
[2016-04-21] MEDS ORDERED: HydrALAZINE HCL 20 MG/ML VIAL IV. PRN (08:00)
--- NOTE | 2016-04-21 08:05 | Orthopedic Progress Note ---
Orthopedic Progress Note Date of Service Apr 21, 2016. Subjective Post OP Day: 2 Reports: feeling well, Denies: SOB, calf pain, chest pain, nausea / vomiting Objective calves soft nontender, N/V intact, dressing C/D/I (SILVERLON), A&O x3, toes mobile Date Time Temp Pulse Resp B/P Pulse Ox O2 Delivery O2 Flow Rate FiO2 04/21/16 07:10 36.5 72 17 170/83 96 Room Air 04/21/16 00:21 Room Air 04/20/16 23:04 36.7 66 18 151/69 92 Room Air 04/20/16 16:30 36.4 66 16 152/78 96 Room Air 04/20/16 15:45 Room Air 04/20/16 11:25 Room Air Laboratory Results 24 Hours: Test 04/21/16 05:00 Hematocrit 32.6 % Hemoglobin 10.7 g/dL Assessment & Plan Assessment: POD#2 SP RIGHT TKA HYPERTENSION Inhouse Planning Pain Management: Celebrex, Oxycontin, PO Tylenol, Oxy IR DVT Prophylaxis: TEDs, SCDs, ASA Discharge Planning Discharge Planning: home with oppt (DC HOME TODAY AFTER PT)
--- NOTE | 2016-04-21 08:06 | Discharge Instructions ---
Discharge Instructions Admission Reason for Admission: R Knee Djd Discharge Discharge Diagnosis / Problem: SP RIGHT TKA Discharge Goals Goal(s): Decrease discomfort, Improve function, Increase independence Activity Recommendations Activity Limitations: per Instructions/Follow-up section . Instructions / Follow-Up Instructions / Follow-Up ACTIVITY RECOMMENDATIONS: SELF CARE INSTRUCTIONS AFTER TOTAL KNEE REPLACEMENT A. You may need to continue a physical therapy program after discharge from the hospital. There are several options available to you. Your doctor will assist you in selecting the best one for you. 1. An out-patient facility 2 to 3 times a week for therapy or home therapy. 2. Continue working on all exercises taught to you in the hospital. Your goals should be to increase bending of your knee to 90 degrees and beyond and to fully straighten your knee. B. You may progress at your own pace from walking with a walker or crutches to a cane; then to no assistive devices. C. Make walking a part of your daily routine. Be up as much as comfortable with rest periods throughout the day. Rest with leg elevation is very important. Use the ice wrap frequently for the first 3-4 weeks. D. There are no restrictions on activities. You may ride in a car, shop, participate in marketing professional and all social activities. E. Wear the long elastic stockings (RONEN hose) 20 hours a day for 2 weeks after surgery. They can be removed several times a day for laundering and for a bath. F. You may shower, no tub baths until cleared by your doctor. SPECIAL CARE INSTRUCTIONS: VERY IMPORTANT TO READ AND REVIEW A. There are a few signs you need to watch for after you are home. Call [facility] if you notice any of the followin. Increased severe knee pain. Some pain is expected especially when you exercise. 2. Increased swelling in your leg or knee; pain or swelling of the calf muscle in either lower leg. 3. Any fluid drainage from the incision. 4. Shortness of breath or chest pain. B. Please call [facility] at if you have any concerns or questions about your operation or recovery. The doctor or his nurse will return your call promptly. C. You must take antibiotics before dental work, bladder, bowel or other surgery. Your doctor will provide you with a permanent care to carry describing this precaution. IMPORTANT: * REMEMBER TO TAKE ASPIRIN, 81 MG, TWICE DAILY FOR 4 WEEKS UNLESS OTHERWISE DIRECTED. THIS IS YOUR BLOOD THINNER. * HIGH RISK PATIENTS MAY BE PRESCRIBED A STRONGER BLOOD THINNER. THIS WILL BE PROVIDED AT DISCHARGE. * CALL IF INCREASED PAIN, REDNESS, DRAINAGE OR FEVER GREATER THAT 101. * WEAR RONEN HOSE 20 HOURS PER DAY FOR 2 WEEKS. * YOU MAY HAVE A LARGE BAND-AID LIKE DRESSING (SILVERON). THIS WILL REMAIN ON YOUR INCISION FOR 7 DAYS, THEN CAN BE REMOVED. IF INCISION IS LEAKING THROUGH DRESSING, CALL THE OFFICE . FOLLOW UP VISIT: If appointment is not already scheduled: Please call [facility] to make a follow-up appointment for 2 weeks after your surgery at . Current Hospital Diet Patient's current hospital diet: Diabetes Type 2 Diet Discharge Diet Recommended Diet: Regular Diet Procedures Procedures Performed: Right Total Knee Arthroplasty w/ Jarek and Devika Lemons 2 Pending Studies Studies pending at discharge: no Medical Emergencies . Who to Call and When: Medical Emergencies: If at any time you feel your situation is an emergency, please call [phone] immediately. . Non-Emergent Contact Non-Emergency issues call your: Primary Care Provider . "Provider Documentation" section prepared by Neelam Gutierrez. VTE Core Measure Inpt VTE Proph given/why not?: Other Anticoagulation, T.E.D. Stockings, SCD's
[2016-04-21] MEDS ORDERED: ASPEC81 PO (08:08)
[2016-04-21] MEDS ORDERED: ONDA8TAB6 PO (08:08)
[2016-04-21] MEDS ORDERED: OXYSR10 PO (08:08)
[2016-04-21] MEDS ORDERED: RXC5 PO (08:08)
[2016-04-21] MEDS ORDERED: ACET-1138 PO (08:08)
[2016-04-21] MEDS ORDERED: SNK PO (08:08)
[2016-04-21 08:23] VITALS: BP 161/84; PULSE 68
[2016-04-21] MEDS: OXYCODONE HCL 10 MG TABCR (OXYCONTIN) PO SCH (08:25)
[2016-04-21] MEDS: MULTIVITAMIN TAB PO SCH (08:26)
[2016-04-21] MEDS: VENLAFAXINE HCL XR 75 MG CAPXR PO SCH (08:26)
[2016-04-21] MEDS: PANTOprazole SOD 40 MG TAB PO SCH (08:26)
[2016-04-21] MEDS: FERROUS GLUCONATE 324 MG TAB PO SCH (08:26)
[2016-04-21] MEDS: BETAHISTINE HCL PO SCH (08:26)
[2016-04-21] MEDS: INSULIN ASPART 100 UNITS/ML 3 ML PEN SC SCH (08:29)
[2016-04-21] MEDS: DOCUSATE SODIUM 100 MG CAP PO SCH (09:08)
[2016-04-21] MEDS: ASPIRIN 81 MG ECTAB PO SCH (09:08)
[2016-04-21 10:45] VITALS: BP 161/84; PULSE 68; TEMP 36.5; O2SAT 96
--- NOTE | 2016-04-24 11:18 | DISCHARGE SUMMARY ---
DISCHARGE DIAGNOSIS: Degenerative joint disease, right knee. SECONDARY DIAGNOSES: Sleep apnea with use of CPAP, diabetes mellitus, history of cervical and lumbar back pain, gastroesophageal reflux disease, and obesity. CONSULTS: Gayle Morales PA-C/Dr. Lilian Tran M.D. COMPLICATIONS: None. PROCEDURES: Right total knee arthroplasty performed by Dr. Del Real on 04/19/2016. BRIEF HISTORY: As dictated in the history and physical. HOSPITAL SUMMARY: The patient was admitted on the above-noted date and had the above-noted surgery performed which she tolerated well. On the first postoperative day, she was feeling well and had no complaints. Calves were soft, nontender, neurovascularly intact. Dressings clean, dry and intact. Toes were mobile and vital signs were stable. She was afebrile. Hemoglobin was 11.0. She was started on physical therapy protocol and continued on DVT prophylaxis and pain management. By her second postoperative day, she was feeling well and had no complaints. Calves were soft and nontender, neurovascularly intact. Dressings clean, dry and intact. Toes were mobile. Vital signs were stable, although BP fluctuated off and on, but was continued to be followed by medicine service during her stay. Hemoglobin was 10.7. She was progressing well with physical therapy and it was felt that she could be discharged to home. For further review, please see chart. LABORATORY AND X-RAY DATA: As per chart. DISCHARGE INSTRUCTIONS: The patient was discharged to home on 04/22/2016. DIET: Regular. ACTIVITY: Follow TK instruction sheets and special care instructions as noted. Follow up with Dr. Del Real in 2 weeks. The patient to call for appointment if one has not been made for you. DISCHARGE MEDICATIONS: Acetaminophen 1000 mg p.o. q. 8 hours, aspirin 81 mg p.o. b.i.d. for 30 days, Zofran 8 mg p.o. q. 8 hours p.r.n. nausea, OxyContin 10 mg p.o. q. 12 hours, oxycodone 5-10 mg p.o. q. 4 hours p.r.n., senna 17.2 mg p.o. at bedtime. Resume betahistine/hydrochloride 16 mg p.o. b.i.d., gabapentin 900 mg p.o. at bedtime, hydrocortisone topically 1 dose as directed, hydroxyzine 25 mg p.o. q. 6 hours p.r.n. itching, levothyroxine 125 mcg p.o. q.a.m., Zestoretic one tab p.o. q.a.m., melatonin 10 mg p.o. at bedtime, metformin 2 tabs p.o. b.i.d., ropinirole 3 tabs p.o. at bedtime, venlafaxine extended release 75 mg 3 tabs p.o. q.a.m. and miconazole 2% powder 1 dose topically as directed.
[2016-08-11] MEDS ORDERED: LISI-461 PO ×2 (16:30→17:28)
[2016-08-11] MEDS ORDERED: DXY100 PO ×2 (16:30→17:28)
[2016-08-11] MEDS ORDERED: ROPI1TAB PO ×2 (16:30→17:28)
== END 2016-04-21 11:18 | disposition home or self-care (01) | DRG 470 ==
LOC: ENRESERVDT → ENRESERVTM → C.ACU 09:11 → C.3E 09:40
PROVIDERS: ADMIT Orthopaedic Surgery Sports Medicine; ATTEND Orthopaedic Surgery Sports Medicine
PROC: 0SRC0J9 Replacement of Right Knee Joint with Synthetic Substitute, Cemented, Open Approach (ICD-10-PCS; principal; 2016-04-19 11:00)
DX: M17.11 Unilateral primary osteoarthritis, right knee (principal); E03.9 Hypothyroidism, unspecified; E11.9 Type 2 diabetes mellitus without complications; E66.9 Obesity, unspecified; E78.5 Hyperlipidemia, unspecified; F32.9 Major depressive disorder, single episode, unspecified; G47.33 Obstructive sleep apnea (adult) (pediatric); I10 Essential (primary) hypertension; Z87.891 Personal history of nicotine dependence; Z79.899 Other long term (current) drug therapy

== ENCOUNTER → 2016-04-29 | Outpatient (CLI) | payer OTHER ==
[~2016-04-29] MED LIST changes: +ACET-1138 PO; -ACETAMINOPHEN 500 MG TAB PO SCH; +ASPEC81 PO; -BUPIVACAINE 0.5 % 5 MG/1 ML PF 10ML VIAL ONE; -CEFAZOLIN 2000 MG/60 ML D5W 60 ML IV SCH; -CeleBREX 200 MG CAP PO SCH; -DEXAMETHASONE 4 MG TAB PO SCH; +DXY100 PO; -FAMOTIDINE 20 MG TAB PO SCH; -GABAPENTIN 300 MG CAP PO SCH; +HYDR-4330 PO; -LACTATED RINGER'S 1000ML 1,000 ML IV SCH; -LACTATED RINGER'S 1000ML IV SCH; -LACTATED RINGER'S 500 ML IV SCH; +LISI-461 PO; +LYR50 PO; +MELO7.5T5 PO; +METH1TAB81 PO; -METOCLOPRAMIDE HCL 10 MG TAB PO SCH; +ONDA8TAB6 PO; +OXYSR10 PO; +PRAV20TA PO; +ROPI1TAB PO; +ROPI2TAB6 PO; -ROPIVACAINE 5MG/ML 30 ML 150 MG, BUPIVACAINE/EPINEPHR 0.5% MPF 30 ML, KETOROLAC TROMETH... INFIL SCH; +RXC5 PO; +SNK PO; +SULF500T35 PO
--- NOTE | 2016-04-29 13:22 | DIAGNOSTIC IMAGING REPORT ---
Venous Doppler right leg VENOUS DOPP LOWER EXT UNILAT CLINICAL HISTORY: R LEG PAIN/SWELLING pain. Edema. TECHNIQUE: Venous Doppler COMPARISON STUDY: 2008 FINDINGS: Normal study IMPRESSION: Normal study Electronically signed by: Ortega Gonsales M.D. 04/29/2016 1:20 PM Dictated Date/Time: 04/29/2016 1:20 PM
== END | disposition home or self-care (01) ==
LOC: C.ULTRBC 12:30
PROVIDERS: ATTEND Orthopaedic Surgery Sports Medicine
DX: M79.604 Pain in right leg (principal)

== ENCOUNTER 2016-08-09 16:42 | Inpatient (IN) | payer OTHER ==
[~2016-08-09] VITALS: Ht 160 cm; Wt 103.5 kg
[~2016-08-09 16:42] MED LIST changes: -DXY100 PO; -HYDR-4330 PO; -LEVO125T4 PO; +LEVO125T5 PO; -LISI-461 PO; -LYR50 PO; -MELO7.5T5 PO; -METH1TAB81 PO; -PRAV20TA PO; -ROPI1TAB PO; -ROPI2TAB6 PO; -SULF500T35 PO
[2016-08-09] MEDS ORDERED: SODIUM CHLORIDE 0.9% 1000ML 1,000 ML IV STA ×2 (17:12→17:56)
[2016-08-09 17:21] LABS: BASO % 0.6 %; BASO ABS # 0.09 K/uL (0-0.2); COMPLETE YES; EOS % 2.7 %; HEMATOCRIT 39.7 % (37-47); IG% 1.2 %; LYMPH % 24.2 %; LYMPH ABS # 3.53 K/uL (1.2-3.4); MEAN CELL VOLUME 87.4 fL (80-100); MEAN CORPUSCULAR HEMOGLOBIN 28.9 pg (25-34); MEAN PLATELET VOLUME 10.1 fL (7.4-10.4); MONO % 9.1 %; NEUT % 62.2 %; PLATELET COUNT 339 K/uL (130-400); RED BLOOD COUNT 4.54 M/uL (4.2-5.4)
[2016-08-09] MEDS ORDERED: PRAV20TA PO (17:22)
[2016-08-09] MEDS ORDERED: HYDR-4330 PO (17:22)
[2016-08-09] MEDS ORDERED: GABA-113 PO (17:22)
[2016-08-09] MEDS ORDERED: LYR50 PO (17:22)
[2016-08-09] MEDS ORDERED: SULF500T35 PO (17:22)
[2016-08-09] MEDS ORDERED: METH1TAB81 PO (17:22)
[2016-08-09] MEDS ORDERED: MELO7.5T5 PO (17:22)
[2016-08-09] MEDS ORDERED: ROPI2TAB6 PO (17:22)
[2016-08-09 17:43] LABS: ALT/SGPT 37 U/L (12-78); AST/SGOT 24 U/L (15-37); BLOOD UREA NITROGEN 41 mg/dl (7-18); BUN/CREATININE RATIO 20.4 (10-20); CALCIUM 8.7 mg/dl (8.5-10.1); CARBON DIOXIDE 25 mmol/L (21-32); CHLORIDE 106 mmol/L (98-107); GLUCOSE 115 mg/dl (70-99); POTASSIUM 3.6 mmol/L (3.5-5.1); SODIUM 142 mmol/L (136-145)
[2016-08-09 17:54] LABS: ALKALINE PHOSPHATASE 106 U/L (45-117); CKMB/CK RATIO 1.8 (0-3.0); THYROID STIMULATING HORMONE 0.279 uIu/ml (0.300-4.500)
--- NOTE | 2016-08-09 18:01 | DIAGNOSTIC IMAGING REPORT ---
CT OF THE HEAD WITHOUT CONTRAST CLINICAL HISTORY: Altered mental status. COMPARISON STUDY: Head CT March 02, 2008. TECHNIQUE: Helical axial images of the head were obtained without IV contrast. Automated exposure control was utilized for the study. FINDINGS: No acute intracranial hemorrhage, midline shift or mass effect is present. Ventricular system is stable. Basilar cisterns are patent. There are no extra-axial collections. Villagomez-white differentiation is maintained. Mild white matter hypodensity suggests small vessel disease. There are no findings to suggest acute dural sinus thrombosis or acute territorial infarct. There are postsurgical findings within the sinuses. There is mild mucosal thickening of the ethmoid and sphenoid sinuses. IMPRESSION: 1. No acute intracranial findings. 2. Mild ethmoid and sphenoid sinus mucosal thickening. Electronically signed by: Bryn Tanner M.D. 08/09/2016 5:59 PM Dictated Date/Time: 08/09/2016 5:57 PM
--- NOTE | 2016-08-09 18:08 | DIAGNOSTIC IMAGING REPORT ---
CT OF THE ABDOMEN AND PELVIS WITHOUT CONTRAST, STONE PROTOCOL CLINICAL HISTORY: Right flank pain. Weakness. Hypotension. Syncope. COMPARISON STUDY: None. TECHNIQUE: Helical axial images of the abdomen and pelvis were obtained without IV or oral contrast according to renal stone protocol. FINDINGS: The heart is mildly enlarged. No renal, ureteral or bladder calculi are present. There is no hydronephrosis or hydroureter. A 9 mm water attenuation lesion within the lower of the left kidney is suboptimally assessed on this unenhanced exam but likely reflects a cyst. Evaluation of the abdomen and pelvis is suboptimal as unenhanced exam. The liver, spleen, adrenal glands and pancreas are unremarkable. There is no evidence for a bowel obstruction. The appendix is normal. No ascites is present. There is no abscess. No lymphadenopathy is present. Post surgical findings within the lumbar spine are noted. Multilevel degenerative disc disease is present. IMPRESSION: 1. No urinary calculi or hydronephrosis. 2. No acute process within the abdomen or pelvis on unenhanced exam. Electronically signed by: Bryn Tanner M.D. 08/09/2016 6:07 PM Dictated Date/Time: 08/09/2016 6:00 PM
--- NOTE | 2016-08-09 18:09 | DIAGNOSTIC IMAGING REPORT ---
CHEST ONE VIEW PORTABLE CLINICAL HISTORY: Altered mental status. COMPARISON STUDY: Chest radiograph September 06, 2015. FINDINGS: Moderate cardiomegaly is unchanged. There is no evidence of pulmonary edema. There is no pneumothorax or pleural effusion. No consolidation is identified to suggest pneumonia. Mild left basilar opacity likely reflects atelectasis with epicardial fat pad. IMPRESSION: No acute cardiopulmonary findings. Electronically signed by: Bryn Tanner M.D. 08/09/2016 6:08 PM Dictated Date/Time: 08/09/2016 6:08 PM
--- NOTE | 2016-08-09 18:46 | EMERGENCY ROOM VISIT NOTE ---
History Report prepared by Joshuaibrobinson: Janes Goodman Under the Supervision of: Dr. José Manuel Carrasco M.D. First contact with patient: 17:03 Chief Complaint: SYNCOPE Stated Complaint: HYPOTENSION, SYNCOPE Nursing Triage Summary: Pt was at [facility] for a doc appt for increased weakness in her legs. Was found unconscious in a chair, was helped to the floor, found to have a BP 80-systolic and then 50-systolic with an O2 saturation in the 80s. An EKG was done and was compared to previous (Mar 2016) which showed new left BBB. [facility] staff gave the pt 4 baby aspirin. ALS found the pt to be conscious and alert on their arrival. [facility] 106. Pt arrives via ALS. History of Present Illness The patient is a 70 year old female who presents to the Emergency Room with complaints of a syncopal episode occurring shortly prior to arrival. She was at her PCP's due to feeling weak, and was found unconscious in a chair outside of the office. She states that she has felt weak for several weeks. Her blood pressure was found to be about 80/50 at the office. The patient has a history of dementia and is on steroids for rheumatoid arthritis. She notes that the only thing she had to eat today was part of a pancake. She denies any abdominal pain. HPI limited secondary to dementia. Source of History: patient History Limited By: dementia Onset: Shortly prior to arrival Quality: other (syncope) Timing: other (episode) Associated Symptoms: No abdominal pain Review of Systems ROS limited secondary to dementia. Past Medical & Surgical Medical Problems: (1) CKD (chronic kidney disease), stage III (2) Depression (3) Diabetes mellitus, type II (4) DM type 2 (diabetes mellitus, type 2) (5) Dyslipidemia (6) Generalized anxiety disorder (7) HTN (hypertension) (8) Hypothyroidism (9) Meniere's disease (10) RENÉ on CPAP (11) Restless leg syndrome (12) Rheumatoid arthritis Surgical Problems: (1) H/O sinus surgery (2) History of carpal tunnel surgery (3) History of orthopedic surgery (4) History of tubal ligation (5) Hx of total knee arthroplasty Family History Diabetes mellitus FH: cancer FH: heart disease Social History Smoking Status: Former Smoker Drug Use: none Marital Status: Housing Status: lives with family Occupation Status: retired Current/Historical Medications Scheduled Aspirin (Aspirin EC Low Dose), 81 MG PO DAILY Betahistine Hydrochloride (Bul (Betahistine Dihydrochlori), 16 MG PO BID Gabapentin (Neurontin), 900 MG PO HS Gabapentin (Neurontin), 300 MG PO BID Hydrocortisone 1% (Hydrocortisone 1%), 1 DOSE TOP UD Levothyroxine Sodium (Levothyroxine Sodium), 1 TAB PO QAM Lisinopril/Hctz (Zestoretic 20MG/25MG), 2 TAB PO QAM Meloxicam (Mobic), 7.5 MG PO DAILY Metformin Hcl Er (Glucophage Er), 1,000 MG PO BID Methylprednisolone (Medrol), 8 MG PO QAM Pravastatin (Pravachol ), 40 MG PO DAILY Pregabalin (Lyrica), 50 MG PO DIRECTED Sulfasalazine (Sulfazine Ec), 500 MG PO BID Venlafaxine Hcl (Venlafaxine Extended Rel), 225 MG PO QAM [miconazole 2% powder], 1 DOSE TOP UD Scheduled PRN Hydrocodone-Acetaminophen (Lortab 5-325 mg), 1 TAB PO Q6 PRN for Pain Hydroxyzine HCl (Hydroxyzine HCl), 1 TAB PO Q6H PRN for itching and sleep Melatonin (Melatonin Maximum Strengt), 10 MG PO HS PRN for Insomnia Ropinirole (Requip), 4 MG PO HS PRN for prn Allergies Coded Allergies: No Known Allergies (Verified , 08/09/16) Physical Exam Vital Signs Date Time Temp Pulse Resp B/P Pulse Ox O2 Delivery O2 Flow Rate FiO2 08/09/16 18:57 61 18 134/46 97 Room Air 08/09/16 18:14 62 15 97/48 96 Room Air 08/09/16 17:51 62 20 96/47 95 Room Air 08/09/16 17:26 62 20 99/47 96 Room Air 72 102/50 79/55 08/09/16 17:15 96 Room Air 08/09/16 17:08 68 08/09/16 16:50 36.7 71 16 108/51 96 Room Air 08/09/16 16:50 96 Room Air Physical Exam GENERAL: Patient is a healthy-appearing well-nourished HEAD: Normocephalic atraumatic EYES: Ocular movements intact pupils equal and react to light OROPHARYNX mucous membranes are moist no exudates present no erythema or edema present NECK: Supple no nuchal rigidity CHEST: Good equal expansion LUNGS: Clear and equal to auscultation CARDIAC: Normal S1 and S2 ABDOMEN: Soft nontender no guarding BACK: No CVA tenderness EXTREMITIES: No pain upon palpation normal muscle strength in all groups no clubbing cyanosis or edema NEURO: Patient is following commands is answering questions appropriately. Alert and oriented x3 Cranial Nerves 2-12 grossly intact Medical Decision & Procedures ER Provider Diagnostic Interpretation: X-ray results as stated below per interpretation by me and the radiologist: CT OF THE HEAD WITHOUT CONTRAST FINDINGS: No acute intracranial hemorrhage, midline shift or mass effect is present. Ventricular system is stable. Basilar cisterns are patent. There are no extra-axial collections. Villagomez-white differentiation is maintained. Mild white matter hypodensity suggests small vessel disease. There are no findings to suggest acute dural sinus thrombosis or acute territorial infarct. There are postsurgical findings within the sinuses. There is mild mucosal thickening of the ethmoid and sphenoid sinuses. IMPRESSION: 1. No acute intracranial findings. 2. Mild ethmoid and sphenoid sinus mucosal thickening. Electronically signed by: Bryn Tanner M.D. CT OF THE ABDOMEN AND PELVIS WITHOUT CONTRAST, STONE PROTOCOL FINDINGS: The heart is mildly enlarged. No renal, ureteral or bladder calculi are present. There is no hydronephrosis or hydroureter. A 9 mm water attenuation lesion within the lower of the left kidney is suboptimally assessed on this unenhanced exam but likely reflects a cyst. Evaluation of the abdomen and pelvis is suboptimal as unenhanced exam. The liver, spleen, adrenal glands and pancreas are unremarkable. There is no evidence for a bowel obstruction. The appendix is normal. No ascites is present. There is no abscess. No lymphadenopathy is present. Post surgical findings within the lumbar spine are noted. Multilevel degenerative disc disease is present. IMPRESSION: 1. No urinary calculi or hydronephrosis. 2. No acute process within the abdomen or pelvis on unenhanced exam. Electronically signed by: Byrn Tanner M.D. CHEST ONE VIEW PORTABLE FINDINGS: Moderate cardiomegaly is unchanged. There is no evidence of pulmonary edema. There is no pneumothorax or pleural effusion. No consolidation is identified to suggest pneumonia. Mild left basilar opacity likely reflects atelectasis with epicardial fat pad. IMPRESSION: No acute cardiopulmonary findings. Electronically signed by: Bryn Tanner M.D. Laboratory Results 08/09/16 17:00 Red Blood Count 4.54, Mean Corpuscular Volume 87.4, Mean Corpuscular Hemoglobin 28.9, Mean Corpuscular Hemoglobin Concent 33.0, Mean Platelet Volume 10.1, Neutrophils (%) (Auto) 62.2, Lymphocytes (%) (Auto) 24.2, Monocytes (%) (Auto) 9.1, Eosinophils (%) (Auto) 2.7, Basophils (%) (Auto) 0.6, Neutrophils # (Auto) 9.07, Lymphocytes # (Auto) 3.53, Monocytes # (Auto) 1.33, Eosinophils # (Auto) 0.40, Basophils # (Auto) 0.09 08/09/16 17:00 Test 08/09/16 17:00 White Blood Count 14.60 K/uL (4.8-10.8) Red Blood Count 4.54 M/uL (4.2-5.4) Hemoglobin 13.1 g/dL (12.0-16.0) Hematocrit 39.7 % (37-47) Mean Corpuscular Volume 87.4 fL (80-100) Mean Corpuscular Hemoglobin 28.9 pg (25-34) Mean Corpuscular Hemoglobin Concent 33.0 g/dl (32-36) Platelet Count 339 K/uL (130-400) Mean Platelet Volume 10.1 fL (7.4-10.4) Neutrophils (%) (Auto) 62.2 % Lymphocytes (%) (Auto) 24.2 % Monocytes (%) (Auto) 9.1 % Eosinophils (%) (Auto) 2.7 % Basophils (%) (Auto) 0.6 % Neutrophils # (Auto) 9.07 K/uL (1.4-6.5) Lymphocytes # (Auto) 3.53 K/uL (1.2-3.4) Monocytes # (Auto) 1.33 K/uL (0.11-0.59) Eosinophils # (Auto) 0.40 K/uL (0-0.5) Basophils # (Auto) 0.09 K/uL (0-0.2) RDW Standard Deviation 46.1 fL (36.4-46.3) RDW Coefficient of Variation 14.4 % (11.5-14.5) Immature Granulocyte % (Auto) 1.2 % Immature Granulocyte # (Auto) 0.18 K/uL (0.00-0.02) D-Dimer 1240 ug/L FEU (0-500) Anion Gap 11.0 mmol/L (3-11) Est Creatinine Clear Calc Drug Dose 30.3 ml/min Estimated GFR () 28.8 Estimated GFR (Non- 24.8 BUN/Creatinine Ratio 20.4 (10-20) Calcium Level 8.7 mg/dl (8.5-10.1) Total Bilirubin 0.2 mg/dl (0.2-1) Direct Bilirubin < 0.1 mg/dl (0-0.2) Aspartate Amino Transf (AST/SGOT) 24 U/L (15-37) Alanine Aminotransferase (ALT/SGPT) 37 U/L (12-78) Alkaline Phosphatase 106 U/L (45-117) Total Creatine Kinase 110 U/L (26-192) Total Protein 7.8 gm/dl (6.4-8.2) Albumin 3.6 gm/dl (3.4-5.0) Thyroid Stimulating Hormone (TSH) 0.279 uIu/ml (0.300-4.500) Hepatitis C Antibody Screen NEG (NEG) Labs reviewed by ED physician. Medications Administered Medications (Trade) Dose Ordered Sig/Laury Route Start Time Stop Time Status Last Admin Dose Admin Sodium Chloride 1,000 ml @ 999 mls/hr Q1H1M STAT IV 08/09/16 17:12 08/09/16 18:12 DC 08/09/16 17:26 999 MLS/HR Sodium Chloride 1,000 ml @ 999 mls/hr Q1H1M STAT IV 08/09/16 17:56 08/09/16 18:56 DC 08/09/16 18:14 999 MLS/HR Sodium Chloride (Nss 1000ml) 1,000 ml @ 100 mls/hr Q10H IV 08/09/16 19:59 09/08/16 19:58 08/09/16 22:51 100 MLS/HR ECG Indication: syncope Rate (beats per minute): 67 Rhythm: normal sinus Findings: T-wave inversion, no acute ischemic change, no ectopy, other (old anterior infarct) Comparison ECG Date: Oct 24, 2014 Change: T-wave inversions are new. ED Course 1705: Past medical records reviewed. The patient was evaluated in room A2. A complete history and physical examination was performed. 1712: Ordered Sodium Chloride 1000 ml @ 999 mls/hr. 1756: Ordered Sodium Chloride 1000 ml @ 999 mls/hr. 183: Upon reexamination the patient is resting comfortably. I discussed results and treatment plan with the patient. She verbalizes agreement and understanding. I spoke with Jennifer Cedeno PA-C from the [facility] Hospitalist Service. The patient will be evaluated for further management. Medical Decision Differential diagnosis: Etiologies such as vasovagal event, infection, hypoglycemia, electrolyte abnormalities, cardiac sources, intracerebral event, toxicologic, neurologic, as well as others were entertained. Medication Reconciliation: I attest that I have personally reviewed the patient' s current medication list This is a 70-year-old female who presents emergency department complaining of generalized weakness that is been ongoing for the past several weeks. The patient went to her primary care physician's office today and passed out. She was then sent to the emergency department. She was found to be hypotensive upon arrival and appears to be in acute renal failure. For this reason the patient was given 2 L of fluid. I did discuss the case with the hospitalist service who agreed to admit the patient. Patient and were in agreement with treatment plan. Consults Time Called: 1829 Consulting Physician: Jennifer Cedeno PA-C -[facility] Returned Call: [phone] I discussed the patient's case with Jennifer Cedeno PA-C, she has agreed to evaluate the patient for further management and care. Impression Primary Impression: Acute renal failure Additional Impression: Dehydration Scribe Attestation The scribe's documentation has been prepared under my direction and personally reviewed by me in its entirety. I confirm that the note above accurately reflects all work, treatment, procedures, and medical decision making performed by me. Departure Information Dispostion Being Evaluated By Hospitalist Prescriptions Aspirin (Aspirin EC Low Dose) 81 Mg Ectab 81 MG PO DAILY for 30 Days Prov: Jennifer Cedeno .[facility] 08/09/16 Referrals Marcella Mondragon M.D. (PCP) Patient Instructions My [facility] Problem Qualifiers Primary Impression: Acute renal failure Acute renal failure type: unspecified Qualified Codes: N17.9 - Acute kidney failure, unspecified
[2016-08-09] MEDS ORDERED: NITROGLYCERIN 0.4 MG SL PER TAB CHARGE SL PRN (20:00)
[2016-08-09] MEDS ORDERED: ONDANSETRON INJ 2 MG/ML 2 ML VIAL IV PRN (20:00)
[2016-08-09] MEDS ORDERED: ASPEC81 PO (20:10)
[2016-08-09] MEDS ORDERED: GLUCOSE 40% GEL 15 GM TUBE PO PRN (20:15)
[2016-08-09] MEDS ORDERED: GLUCOSE 10 TABS/TUBE PO PRN (20:15)
[2016-08-09] MEDS ORDERED: DEXTROSE 50% 50 ML SYR IV PRN (20:15)
[2016-08-09] MEDS ORDERED: GLUCAGON FOR INJ 1 MG VIAL SQ PRN (20:15)
[2016-08-09] MEDS: INSULIN ASPART 100 UNITS/ML 3 ML PEN SC SCH (21:00)
[2016-08-09 21:21] LABS: URINE APPEARANCE CLOUDY (CLEAR); URINE BILIRUBIN NEG (NEG); URINE COLOR YELLOW; URINE EPITHELIAL CELL AUTO >30 /lpf (0-5); URINE NITRITE NEG (NEG); URINE SPECIFIC GRAVITY 1.019 (1.000-1.030); UROBILINOGEN NEG (NEG)
[2016-08-09 21:24] LABS: MANUAL MICROSCOPIC REQUIRED? NO; REVIEW REQ? YES
--- NOTE | 2016-08-09 21:49 | History and Physical ---
History & Physical Date & Time of Service: August 09, 2016 ~ 1930 Chief Complaint: Syncope Primary Care Physician: Marcella Mondragon M.D. History of Present Illness 70 year old female who presents to the ER after a syncopal event at her PCPs office. Patient reports she was there for concerns of right sided pain. She reports that when she stood up from the exam table she felt very lightheaded and dizzy. She says the next thing she knew she was on the floor. She was told she had an episode of vomiting but does not remember. She denies preceding chest pain or shortness of breath. In the office patient was hypotensive, hypoxic, and EKG showed a new LBBB. Patient reports she has been feeling at her baseline recently. She saw neurology yesterday for numbness and pain in both of her legs. She was given a prescription for Lyrica however has not started taking it yet. She reports she feels tired of the most time but that is not necessarily new. She denies exertional chest pain. Reports she will have shortness of breath on occasion which is unchanged from her baseline. She denies any recent changes in her eating habits but does note she drinks a large amount of ice tea. She denies abdominal pain, nausea, vomiting, or diarrhea. No fever or chills. She denies any urinary symptoms. While trying to provide a urine sample in the ER, there was bright red blood noted in the toilet. Patient reports she did not void nor did she think she moved her bowels. In the ER, patient's creat is found to be 2.0 (baseline runs in the low 1's), orthostatic BPs are positive. Head CT, CXR, and CT abd/pelvis are negative for acute findings. Patient was given 2L IVF. Past Medical/Surgical History Medical Problems: (1) CKD (chronic kidney disease), stage III Status: Chronic (2) Depression Status: Chronic (3) Diabetes mellitus, type II Status: Chronic (4) DM type 2 (diabetes mellitus, type 2) Status: Chronic (5) Dyslipidemia Status: Chronic (6) Generalized anxiety disorder Status: Chronic (7) HTN (hypertension) Status: Chronic (8) Hypothyroidism Status: Chronic (9) Meniere's disease Status: Chronic (10) RENÉ on CPAP Status: Chronic (11) Restless leg syndrome Status: Chronic (12) Rheumatoid arthritis Status: Chronic Surgical Problems: (1) H/O sinus surgery Status: Resolved (2) History of carpal tunnel surgery Status: Resolved (3) History of orthopedic surgery Permanent Comment: bilat heel surgery Status: Resolved (4) History of tubal ligation Status: Resolved (5) Hx of total knee arthroplasty Permanent Comment: Left, Dr. Del Real Status: Resolved Family History Diabetes mellitus FATHER BROTHER SISTER SISTER Myasthenia gravis MOTHER Social History Smoking Status: Former Smoker Alcohol Use: none Marital Status: Housing status: lives with family Immunizations History of Influenza Vaccine: Yes Influenza Vaccine Date: Nov 23, 2015 History of Tetanus Vaccine?: Yes Tetanus Immunization Date: Jun 27, 2009 History of Pneumococcal: Yes Pneumococcal Date: Mar 22, 2016 Multi-Drug Resistant Organisms History of MDRO: No Allergies Coded Allergies: No Known Allergies (Verified , 08/09/16) Home Medications Scheduled Aspirin (Aspirin EC Low Dose), 81 MG PO DAILY Betahistine Hydrochloride (Bul (Betahistine Dihydrochlori), 16 MG PO BID Gabapentin (Neurontin), 900 MG PO HS Gabapentin (Neurontin), 300 MG PO BID Hydrocortisone 1% (Hydrocortisone 1%), 1 DOSE TOP UD Levothyroxine Sodium (Levothyroxine Sodium), 1 TAB PO QAM Lisinopril/Hctz (Zestoretic 20MG/25MG), 2 TAB PO QAM Meloxicam (Mobic), 7.5 MG PO DAILY Metformin Hcl Er (Glucophage Er), 1,000 MG PO BID Methylprednisolone (Medrol), 8 MG PO QAM Pravastatin (Pravachol ), 40 MG PO DAILY Pregabalin (Lyrica), 50 MG PO DIRECTED Sulfasalazine (Sulfazine Ec), 500 MG PO BID Venlafaxine Hcl (Venlafaxine Extended Rel), 225 MG PO QAM [miconazole 2% powder], 1 DOSE TOP UD Scheduled PRN Hydrocodone-Acetaminophen (Lortab 5-325 mg), 1 TAB PO Q6 PRN for Pain Hydroxyzine HCl (Hydroxyzine HCl), 1 TAB PO Q6H PRN for itching and sleep Melatonin (Melatonin Maximum Strengt), 10 MG PO HS PRN for Insomnia Ropinirole (Requip), 4 MG PO HS PRN for prn Review of Systems ROS per HPI, all other systems reviewed and negative Physical Exam Vital Signs Date Time Temp Pulse Resp B/P Pulse Ox O2 Delivery O2 Flow Rate FiO2 08/09/16 20:57 86 18 120/67 97 Room Air 08/09/16 18:57 61 18 134/46 97 Room Air 08/09/16 18:14 62 15 97/48 96 Room Air 08/09/16 17:51 62 20 96/47 95 Room Air 08/09/16 17:26 62 20 99/47 96 Room Air 72 102/50 79/55 08/09/16 17:15 96 Room Air 08/09/16 17:08 68 08/09/16 16:50 36.7 71 16 108/51 96 Room Air 08/09/16 16:50 96 Room Air General Appearance: no apparent distress Head: normocephalic Eyes: normal inspection ENT: hearing grossly normal Neck: supple, no JVD Respiratory/Chest: lungs clear, normal breath sounds, no respiratory distress Cardiovascular: regular rate, rhythm, no edema, normal peripheral pulses Abdomen/GI: normal bowel sounds, non tender, soft Extremities/Musculoskelatal: + pertinent finding (tenderness over right ribs just under right breast) Neurologic/Psych: no motor/sensory deficits, alert, normal mood/affect, oriented x 3 Skin: normal color, warm/dry Diagnostics Laboratory Results Results Past 24 Hours Test 08/09/16 17:00 08/09/16 17:17 08/09/16 21:05 Range/Units White Blood Count 14.60 4.8-10.8 K/uL Red Blood Count 4.54 4.2-5.4 M/uL Hemoglobin 13.1 12.0-16.0 g/dL Hematocrit 39.7 37-47 % Mean Corpuscular Volume 87.4 80-100 fL Mean Corpuscular Hemoglobin 28.9 25-34 pg Mean Corpuscular Hemoglobin Concent 33.0 32-36 g/dl Platelet Count 339 130-400 K/uL Mean Platelet Volume 10.1 7.4-10.4 fL Neutrophils (%) (Auto) 62.2 % Lymphocytes (%) (Auto) 24.2 % Monocytes (%) (Auto) 9.1 % Eosinophils (%) (Auto) 2.7 % Basophils (%) (Auto) 0.6 % Neutrophils # (Auto) 9.07 1.4-6.5 K/uL Lymphocytes # (Auto) 3.53 1.2-3.4 K/uL Monocytes # (Auto) 1.33 0.11-0.59 K/uL Eosinophils # (Auto) 0.40 0-0.5 K/uL Basophils # (Auto) 0.09 0-0.2 K/uL RDW Standard Deviation 46.1 36.4-46.3 fL RDW Coefficient of Variation 14.4 11.5-14.5 % Immature Granulocyte % (Auto) 1.2 % Immature Granulocyte # (Auto) 0.18 0.00-0.02 K/uL D-Dimer 1240 0-500 ug/L FEU Sodium Level 142 136-145 mmol/L Potassium Level 3.6 3.5-5.1 mmol/L Chloride Level 106 98-107 mmol/L Carbon Dioxide Level 25 21-32 mmol/L Anion Gap 11.0 3-11 mmol/L Blood Urea Nitrogen 41 7-18 mg/dl Creatinine 2.00 0.60-1.20 mg/dl Est Creatinine Clear Calc Drug Dose 30.3 ml/min Estimated GFR () 28.8 Estimated GFR (Non- 24.8 BUN/Creatinine Ratio 20.4 10-20 Random Glucose 115 70-99 mg/dl Calcium Level 8.7 8.5-10.1 mg/dl Total Bilirubin 0.2 0.2-1 mg/dl Direct Bilirubin < 0.1 0-0.2 mg/dl Aspartate Amino Transf (AST/SGOT) 24 15-37 U/L Alanine Aminotransferase (ALT/SGPT) 37 12-78 U/L Alkaline Phosphatase 106 45-117 U/L Total Creatine Kinase 110 26-192 U/L Creatine Kinase MB 2.0 0.5-3.6 ng/ml Creatine Kinase MB Ratio 1.8 0-3.0 Troponin I < 0.015 0-0.045 ng/ml Total Protein 7.8 6.4-8.2 gm/dl Albumin 3.6 3.4-5.0 gm/dl Thyroid Stimulating Hormone (TSH) 0.279 0.300-4.500 uIu/ml Bedside Glucose 108 70-90 mg/dl Urine Color YELLOW Urine Appearance CLOUDY CLEAR Urine pH 5.0 4.5-7.5 Urine Specific [place] 1.019 1.000-1.030 Urine Protein TRACE NEG Urine Glucose (UA) NEG NEG Urine Ketones NEG NEG Urine Occult Blood 3+ NEG Urine Nitrite NEG NEG Urine Bilirubin NEG NEG Urine Urobilinogen NEG NEG Urine Leukocyte Esterase NEG NEG Diagnostic Radiology CT HEAD IMPRESSION: 1. No acute intracranial findings. 2. Mild ethmoid and sphenoid sinus mucosal thickening. CXR IMPRESSION: No acute cardiopulmonary findings. CT ABD/PELVIS IMPRESSION: 1. No urinary calculi or hydronephrosis. 2. No acute process within the abdomen or pelvis on unenhanced exam. Impression Assessment and Plan SYNCOPE SAM ON CKD STAGE III POSSIBLE LOWER GI BLEED - admit to tele - patient presenting after a witnessed syncopal event at her PCPs office today where she was found to be hypoxic and hypotensive - suspect syncope is due to hypovolemia - possibly due to increased tea intake with combination of HCTZ - patient also noted to be on Lisinopril and Mobic which are nephrotoxic too - all will be held - found to have SAM with creat 2.0 (baseline run's in the low 1's) - WBC 14K - no obvious source of infection identified, U/A pending - ? stress response - positive orthostatic BPs; BP improving with IVF - continue IVF and monitor orthostatic BPs - EKG shows new T-wave inversions laterally; initial troponin negative and no reports of chest pain; will continue to cycle cardiac enzymes and check resting echo - continue ASA and statin - CT head negative, no focal deficits on exam - will check D. Dimer due to reported hypoxia - while trying to provide a urine sample in the ER, there was bright blood noted in the toilet - patient denies urinating or trying to furniture mover helper her bowels; consider diverticular bleed hx hemorrhoid, will recheck H/H later tonight; consider GI consult RHEUMATOID ARTHRITIS - on chronic Medrol which will be continued - hypotension likely due to hypovolemia and not adrenal insufficiency - no role for stress dose steroids HTN - hold lisinopril / HCTZ as above DM - hgb a1c 7.0 03/2016 - hold metformin and utilize SSI while hospitalized HYPOTHYROIDISM - continue levothyroxine MENIERE'S - continue betahistine DVT PROPHYLAXIS - SCDs due to possible lower GI bleed CODE STATUS - Patient is a full code as per my discussion with her. DISPO - In my clinical judgment this beneficiary meets acute admission criteria, established by CMS, that includes being hospitalized through two midnights. ATTENDING ADDENDUM care coordinated with TRINITY Cedeno date of service as noted above please refer to her notes for full details, I agree with her notes patient seen and examined, records reviewed by myself as well on exam, patient seen resting in bed, comfortable states she feels slightly better since arrival denies active dizziness, nausea, chest pain, dyspnea, abdominal pain no other symptoms VS noted and reviewed oriented x 3 , not in distress, speaks in sentences with no effort nor accessory muscle use normal rate, regular rhythm, no murmurs clear breath sounds bilaterally non distended, soft, nontender no bipedal edema, erythema, warmth no neuro deficits WBC 14k Crea 2.0 ASSESSMENT/PLAN> SYNCOPE LIKELY SECONDARY TO ORTHOSTATIC HYPOTENSION - IV fluids hold Lisinopril/HCTZ - elevated D dimer check VQ scan to r/o PE check Doppler US of the legs ACUTE RENAL FAILURE ON CKD 3 - likely pre renal - was having diarrhea in AM - hold Lisinopril/HTCZ - IV fluids other diagnoses and plan of care as per TRINITY Cedeno's notes Jacobo Mcclendon MD VTE Prophylaxis VTE Risk Assessment Done? Y/N: Yes Risk Level: Moderate
[2016-08-09 21:55] VITALS: BP 164/87; PULSE 71; TEMP 36.3; O2SAT 92
[2016-08-09 22:16] VITALS: BP 164/87; PULSE 71; TEMP 36.3; O2SAT 92; Ht 160 cm; Wt 103.5 kg
[2016-08-09] MEDS: SODIUM CHLORIDE 0.9% 1000ML 1,000 ML IV SCH (22:51)
[2016-08-09] MEDS ORDERED: CEFTRIAXONE SOD INJ 1 GM in DEXTROSE 5% ADD-VANTAGE 50ML 50 ML IV SCH (23:00)
[2016-08-09 23:31] LABS: HEMATOCRIT 40.6 % (37-47)
[2016-08-10] MEDS: SULFASALAZINE 500 MG TABEC PO SCH ×3 (00:04→20:18)
[2016-08-10] MEDS: GABAPENTIN 300 MG CAP PO SCH ×4 (00:04→20:18)
[2016-08-10] MEDS ORDERED: NON-FORMULARY MEDICATION (Melatonin (Melatonin Maximum Strengt) 10 MG) PO PRN (01:15)
[2016-08-10] MEDS ORDERED: NURSING VERBAL MED ORDER ONE (01:30)
[2016-08-10] MEDS: ZOLPIDEM TARTRATE 5 MG TAB PO PRN ×2 (01:59→20:19)
[2016-08-10] MEDS: ACETAMINOPHEN 325 MG TAB PO PRN ×3 (04:16→20:20)
[2016-08-10 04:50] VITALS: BP_SYST 157; BP_SYST 158; BP_SYST 163; BP_DIAS 79; BP_DIAS 85; BP_DIAS 92; PULSE 67; PULSE 73; PULSE 84; TEMP 36.7; O2SAT 95
[2016-08-10 05:29] LABS: HEMATOCRIT 37.3 % (37-47); MEAN CELL VOLUME 86.7 fL (80-100); MEAN CORPUSCULAR HEMOGLOBIN 27.9 pg (25-34); MEAN CORPUSCULAR HGB CONC 32.2 g/dl (32-36); PLATELET COUNT 321 K/uL (130-400); WHITE BLOOD COUNT 13.71 K/uL (4.8-10.8)
[2016-08-10] MEDS: SODIUM CHLORIDE 0.9% 1000ML 1,000 ML IV SCH ×2 (05:40→15:56)
[2016-08-10 05:54] LABS: BLOOD UREA NITROGEN 42 mg/dl (7-18); CALCIUM 7.6 mg/dl (8.5-10.1); CARBON DIOXIDE 26 mmol/L (21-32); CHLORIDE 111 mmol/L (98-107); GLUCOSE 120 mg/dl (70-99); POTASSIUM 3.5 mmol/L (3.5-5.1); SODIUM 144 mmol/L (136-145)
[2016-08-10] MEDS: LEVOTHYROXINE 125 MCG TAB PO SCH (05:55)
--- NOTE | 2016-08-10 05:56 | DIAGNOSTIC IMAGING REPORT ---
ULTRASOUND BILATERAL LOWER EXTREMITY VENOUS CLINICAL HISTORY: Hypotension. Syncope. Elevated d-dimer. COMPARISON STUDY: Bilateral lower extremity venous ultrasound dated 02/22/2008. TECHNIQUE: Real-time, grayscale, and color Doppler sonography of the deep veins of the right and left lower extremity was performed from the inguinal crease to the calf. Compression and augmentation were utilized. FINDINGS: There is no sonographic evidence of deep venous thrombosis identified in the right or left lower extremity. The common femoral, superficial femoral, and popliteal veins are patent and normally compressible bilaterally. The greater saphenous vein and the profunda femoris vein at the junction with the common femoral vein are clear in both legs. The visualized calf veins are patent bilaterally. IMPRESSION: There is no sonographic evidence of deep venous thrombosis identified in the right or left lower extremity. Electronically signed by: Deep Smith M.D. 08/10/2016 5:55 AM Dictated Date/Time: 08/10/2016 5:54 AM
[2016-08-10 07:20] VITALS: BP 175/80; PULSE 65; TEMP 36.4; O2SAT 94
[2016-08-10] MEDS: ASPIRIN 81 MG ECTAB PO SCH (07:56)
[2016-08-10] MEDS: VENLAFAXINE HCL XR 75 MG CAPXR PO SCH (07:57)
[2016-08-10] MEDS: METHYLPREDNISOLONE 4 MG TAB PO SCH (07:57)
[2016-08-10] MEDS: PRAVASTATIN SOD 20 MG TAB PO SCH (07:58)
[2016-08-10] MEDS: BETAHISTINE PO SCH ×2 (08:36→20:19)
[2016-08-10] MEDS: INSULIN ASPART 100 UNITS/ML 3 ML PEN SC SCH ×4 (08:39→21:00)
[2016-08-10] MEDS ORDERED: PERFLUTREN LIPID MICROSPHERE (DEFINITY) IV ONE (10:14)
[2016-08-10 11:32] VITALS: BP 145/78; PULSE 70; TEMP 36.6; O2SAT 93
--- NOTE | 2016-08-10 12:26 | ECHOCARDIOGRAM REPORT ---
*NOTICE TO RECEIVING [employer] This information is strictly Confidential and protected under [place] law. [place] law prohibits you from making any further disclosure of this information unless further disclosure is expressly permitted by the written consent of the person to whom it pertains or is authorized by law. A general authorization for the release of medical or other information is not sufficient for this purpose. Hospital accepts no responsibility if the information is made available to any other person, INCLUDING THE PATIENT. Interpretation Summary * Name: CHESTER FRENCH Study Date: 08/10/2016 09:55 AM BP: 158/92 mmHg * Patient Location: [facility]\S\N282\S\2 HR: 84 * : 1945 (M/d/yyyy) Gender: Female Height: 63 in * Age: 70 yrs Ethnicity: [place] Weight: 224 lb * Ordering Physician: Jennifer Cedeno * Referring Physician: Marcella Mondragon * Performed By: Jenny Juarez * * Reason For Study: SYNCOPE * BSA: 2.0 m2 * -- Conclusions -- * The left ventricle is normal in size. * There is moderate concentric left ventricular hypertrophy. * Focal thickening of the basal septum with no evidence of left ventricular outflow obstruction. * The left ventricular wall motion is normal. * Left ventricular systolic function is normal. * Ejection Fraction = 65-70%. * Aortic valve sclerosis mild, without significant aortic valvular stenosis. * There is mild mitral regurgitation. Procedure Details * A complete two-dimensional transthoracic echocardiogram was performed (2D, M-mode, Doppler and color flow Doppler). * A contrast injection of Definity was performed to improve assessment of LV function. * Contrast was injected into an intravenous site in the right arm. * One vial of Definity ultrasound contrast was diluted in normal saline to a total volume of 10 ml. A total of '2' ml of solution was administered during imaging. * Lot # [id number] of Definity utilized for procedure. * Expiration date 09/01. * The attending nurse who injected the contrast agent was JUAN MOODY RN. Left Ventricle * The left ventricle is normal in size. * There is moderate concentric left ventricular hypertrophy. * Focal thickening of the basal septum with no evidence of left ventricular outflow obstruction. * Ejection Fraction = 65-70%. * Left ventricular systolic function is normal. * The left ventricular wall motion is normal. Right Ventricle * The right ventricle is normal in size and function. Atria * The left atrial size is normal. * Right atrial size is normal. * No ASD detected; PFO is not assessed. Mitral Valve * The mitral valve anatomy is normal. * There is no mitral valve stenosis. * There is mild mitral regurgitation. Tricuspid Valve * The tricuspid valve is normal. * There is no tricuspid stenosis. * There is trace tricuspid regurgitation. * Doppler findings do not suggest pulmonary hypertension. Aortic Valve * The aortic valve is trileaflet. * Aortic valve sclerosis mild, without significant aortic valvular stenosis. * No aortic regurgitation is present. Pulmonic Valve * The pulmonic valve is not well visualized. Great Vessels * The aortic root is normal size. Pericardium/Pleural * There is no pericardial effusion. Great Vessels * Normal inferior vena cava diameter and respiratory variation suggests normal central venous pressure. Left Ventricular Diastolic Function * Grade I diastolic dysfunction, (abnormal relaxation pattern). MMode 2D Measurements and Calculations IVSd 1.2 cm IVSs 1.8 cm LVIDd 4.5 cm LVIDs 3.0 cm LVPWd 1.0 cm LVPWs 2.1 cm IVS/LVPW 1.1 FS 33.2 % EDV(Teich) 91.3 ml ESV(Teich) 34.7 ml EF(Teich) 62.0 % EDV(cubed) 89.7 ml ESV(cubed) 26.7 ml EF(cubed) 70.2 % % IVS thick 50.0 % % LVPW thick 101.3 % LV mass(C)d 173.9 grams LV mass(C)dI 85.7 grams/m\S\2 LV mass(C)s 242.4 grams LV mass(C)sI 119.4 grams/m\S\2 SV(Teich) 56.6 ml SI(Teich) 27.9 ml/m\S\2 SV(cubed) 63.0 ml SI(cubed) 31.0 ml/m\S\2 ACS 1.2 cm asc Aorta Diam 3.2 cm LVOT diam 1.3 cm LVOT area 1.3 cm\S\2 LVAd ap4 36.0 cm\S\2 LVLd ap4 8.9 cm EDV(MOD-sp4) 119.0 ml EDV(sp4-el) 123.7 ml LVAs ap4 18.1 cm\S\2 LVLs ap4 6.7 cm ESV(MOD-sp4) 39.6 ml ESV(sp4-el) 41.7 ml EF(MOD-sp4) 66.8 % EF(sp4-el) 66.3 % LVAd ap2 32.5 cm\S\2 LVLd ap2 8.3 cm EDV(MOD-sp2) 106.2 ml EDV(sp2-el) 108.0 ml LVAs ap2 16.3 cm\S\2 LVLs ap2 6.7 cm ESV(MOD-sp2) 33.3 ml ESV(sp2-el) 33.8 ml EF(MOD-sp2) 68.7 % EF(sp2-el) 68.7 % LVLd %diff -7.42 % EDV(MOD-bp) 114.9 ml LVLs %diff -0.43 % ESV(MOD-bp) 35.9 ml EF(MOD-bp) 68.8 % SV(MOD-sp4) 79.5 ml SI(MOD-sp4) 39.2 ml/m\S\2 SV(MOD-sp2) 73.0 ml SI(MOD-sp2) 36.0 ml/m\S\2 SV(MOD-bp) 79.0 ml SI(MOD-bp) 39.0 ml/m\S\2 SV(sp4-el) 82.0 ml SI(sp4-el) 40.4 ml/m\S\2 SV(sp2-el) 74.2 ml SI(sp2-el) 36.6 ml/m\S\2 Doppler Measurements and Calculations MV E max adam 98.2 cm/sec MV A max adam 120.8 cm/sec MV E/A 0.81 MV dec time 0.26 sec Ao V2 max 180.1 cm/sec Ao max PG 13.0 mmHg Ao max PG (full) 3.1 mmHg ANTONY(V,A) 1.1 cm\S\2 ANTONY(V,D) 1.1 cm\S\2 LV V1 max PG 9.9 mmHg LV V1 max 157.4 cm/sec PA V2 max 82.0 cm/sec PA max PG 2.7 mmHg
[2016-08-10 14:48] VITALS: BP 163/74; PULSE 90; TEMP 36.7; O2SAT 94
--- NOTE | 2016-08-10 16:44 | DIAGNOSTIC IMAGING REPORT ---
NUCLEAR PULMONARY VENTILATION/PERFUSION SCAN CLINICAL HISTORY: Syncope. Hypotension. COMPARISON STUDY: Chest x-ray dated 08/09/2016. Chest CT dated 03/03/2008. TECHNIQUE: Initially, ventilation images of both lungs are obtained following the inhalation of 30.6 mCi of aerosolized technetium 99m DTPA. Subsequently, perfusion images of both lungs were obtained following the IV administration of 5.9 mCi of technetium 99m MAA. Ventilation and perfusion images were acquired in the anterior, posterior, and oblique projections. FINDINGS: A chest x-ray performed 08/09/2016 shows mild cardiac enlargement. The lungs are clear. The ventilation of both lungs is slightly heterogeneous. Inhaled tracer is present within the esophagus and proximal stomach. No perfusion defects are identified on the perfusion imaging. IMPRESSION: Findings are considered low probability for pulmonary embolus. Electronically signed by: Deep Smith M.D. 08/10/2016 4:42 PM Dictated Date/Time: 08/10/2016 4:39 PM
[2016-08-10] MEDS ORDERED: ROPINIROLE HCL 1 MG TAB PO PRN (17:00)
--- NOTE | 2016-08-10 18:48 | Progress Note ---
Subjective Date of Service: August 10, 2016. Subjective Pt evaluation today including: conversation w/ patient, conversation w/ family , physical exam, lab review, review of studies, review of inpatient medication list Saw/examined the patient in room 282 Doing well, much better than when she came in She feels less weak, less dizzy No chest pain or shortness of breath Review of Systems Constitutional: + weakness, No chills, No fever Respiratory: No shortness of breath Cardiac: No chest pain Abdomen: No diarrhea, No nausea, No pain, No vomiting Heme: No abnormal bleeding/bruising Medications Current Inpatient Medications Medications (Trade) Dose Ordered Sig/Laury Route Start Time Stop Time Status Last Admin Dose Admin Acetaminophen (Tylenol Tab) 650 mg Q4H PRN PO 08/09/16 20:00 09/08/16 19:59 08/10/16 13:18 650 MG Ondansetron HCl (Zofran Inj) 4 mg Q6H PRN IV 08/09/16 20:00 09/08/16 19:59 Nitroglycerin (Nitrostat Tab) 0.4 mg UD PRN SL 08/09/16 20:00 09/08/16 19:59 Aspirin (Ecotrin Tab) 81 mg DAILY PO 08/10/16 09:00 09/09/16 08:59 08/10/16 07:56 81 MG Gabapentin (Neurontin Cap) 300 mg BID@0900,1400 PO 08/10/16 09:00 09/09/16 08:59 08/10/16 12:57 300 MG Gabapentin (Neurontin Cap) 900 mg HS PO 08/09/16 21:00 09/08/16 20:59 08/10/16 00:04 900 MG Levothyroxine Sodium (Synthroid Tab) 125 mcg DAILYBB PO 08/10/16 06:30 09/09/16 06:29 08/10/16 05:55 125 MCG Methylprednisolone (Medrol Tab) 8 mg QAM PO 08/10/16 09:00 09/09/16 08:59 08/10/16 07:57 8 MG Pravastatin Sodium (Pravachol Tab) 40 mg DAILY PO 08/10/16 09:00 09/09/16 08:59 08/10/16 07:58 40 MG Sulfasalazine (Azulfidine Delayed Rel Tab) 500 mg BID PO 08/09/16 21:00 09/08/16 20:59 08/10/16 07:56 500 MG Venlafaxine HCl (effeXOR EXTENDED REL CAP) 225 mg QAM PO 08/10/16 09:00 09/09/16 08:59 08/10/16 07:57 225 MG Insulin Aspart (novoLOG ASPART) SLIDING SCALE If C... ACHS SC 08/09/16 21:00 09/08/16 20:59 08/10/16 17:50 3 UNITS Glucose (Glucose 40% Gel) 15-30 GRAMS 15 GRAMS... UD PRN PO 08/09/16 20:15 09/08/16 20:14 Glucose (Glucose Chew Tab) 4-8 Tablets 4 Tabl... UD PRN PO 08/09/16 20:15 09/08/16 20:14 Dextrose (Dextrose 50% 50ML Syringe) 25-50ML OF 50% DW IV FOR... UD PRN IV 08/09/16 20:15 09/08/16 20:14 Glucagon 1 mg 1 mg UD PRN SQ 08/09/16 20:15 09/08/16 20:14 Ceftriaxone Sodium/Dextrose (Rocephin Inj/ Dextrose Add-Pierre 50ML) 50 ml @ 100 mls/hr Q24H IV 08/09/16 23:00 08/19/16 22:59 08/10/16 00:05 100 MLS/HR Zolpidem Tartrate (Ambien Tab) 2.5 mg HSZ PRN PO 08/10/16 02:00 09/09/16 01:59 08/10/16 01:59 2.5 MG Non-Formulary Medication (Non-Formulary Patient'S Own Med) 1 ea BID PO 08/10/16 09:00 09/09/16 08:59 08/10/16 08:36 1 EA HCTZ/Lisinopril (Prinzide 20-25MG Tab) 2 tab QAM PO 08/11/16 09:00 09/10/16 08:59 Ropinirole HCl (Requip Tab) 4 mg HS PRN PO 08/10/16 17:00 09/09/16 16:59 Objective Vital Signs Date Time Temp Pulse Resp B/P Pulse Ox O2 Delivery O2 Flow Rate FiO2 08/10/16 14:48 36.7 90 20 163/74 94 Room Air 08/10/16 11:32 36.6 70 20 145/78 93 Room Air 08/10/16 08:00 Room Air 08/10/16 07:20 36.4 65 20 175/80 94 Room Air 08/10/16 04:50 36.7 67 18 163/79 95 Room Air 73 157/85 84 158/92 08/10/16 04:00 Room Air 08/10/16 00:00 Room Air 08/09/16 22:16 36.3 71 20 164/87 92 Room Air 08/09/16 21:55 36.3 71 20 164/87 92 Room Air 08/09/16 21:36 68 18 117/59 96 08/09/16 20:57 86 18 120/67 97 Room Air 08/09/16 18:57 61 18 134/46 97 Room Air Physical Exam General Appearance: no apparent distress ENT: + pertinent finding (hard of hearing, hearing aids) Respiratory/Chest: lungs clear, normal breath sounds, no respiratory distress, no accessory muscle use Cardiovascular: regular rate, rhythm, no edema, no murmur Abdomen: normal bowel sounds, non tender, soft Extremities: normal inspection, no pedal edema Neurologic/Psychiatric: no motor/sensory deficits, alert, normal mood/affect Laboratory Results Last 24 Hours Test 08/09/16 21:05 08/09/16 23:00 08/09/16 23:20 08/10/16 00:12 Urine Color YELLOW Urine Appearance CLOUDY Urine pH 5.0 Urine Specific [place] 1.019 Urine Protein TRACE Urine Glucose (UA) NEG Urine Ketones NEG Urine Occult Blood 3+ Urine Nitrite NEG Urine Bilirubin NEG Urine Urobilinogen NEG Urine Leukocyte Esterase NEG Urine WBC (Auto) 1-5 /hpf Urine RBC (Auto) 10-30 /hpf Urine Hyaline Casts (Auto) 5-10 /lpf Urine Epithelial Cells (Auto) >30 /lpf Urine Bacteria (Auto) 2+ Urine Yeast (Auto) Creatine Kinase MB Ratio Hemoglobin 12.6 g/dL Hematocrit 40.6 % Creatine Kinase MB 2.1 ng/ml Troponin I < 0.015 ng/ml Bedside Glucose 118 mg/dl Test 08/10/16 05:00 08/10/16 05:19 08/10/16 07:28 08/10/16 11:09 Creatine Kinase MB Ratio White Blood Count 13.71 K/uL Red Blood Count 4.30 M/uL Hemoglobin 12.0 g/dL Hematocrit 37.3 % Mean Corpuscular Volume 86.7 fL Mean Corpuscular Hemoglobin 27.9 pg Mean Corpuscular Hemoglobin Concent 32.2 g/dl RDW Standard Deviation 45.6 fL RDW Coefficient of Variation 14.5 % Platelet Count 321 K/uL Mean Platelet Volume 10.0 fL Sodium Level 144 mmol/L Potassium Level 3.5 mmol/L Chloride Level 111 mmol/L Carbon Dioxide Level 26 mmol/L Anion Gap 7.0 mmol/L Blood Urea Nitrogen 42 mg/dl Creatinine 1.60 mg/dl Est Creatinine Clear Calc Drug Dose 38.1 ml/min Estimated GFR () 37.7 Estimated GFR (Non- 32.5 BUN/Creatinine Ratio 26.0 Random Glucose 120 mg/dl Calcium Level 7.6 mg/dl Creatine Kinase MB 1.9 ng/ml Troponin I < 0.015 ng/ml Bedside Glucose 117 mg/dl 98 mg/dl Test 08/10/16 16:46 Bedside Glucose 141 mg/dl Assessment and Plan This is a 70 year old female with a PMH of HTN, DM2, Hypothyroidism, CKD stage 3 , issues with hypotensive episodes and lightheadedness, numbness/tingling, restless leg syndrome, anxiety/depression, RENÉ on CPAP came over via EMS from her PCP's office, when she passed out Syncope and Collapse there are multiple factors playing a part including hypotension, dehydration; she has hx. of Meniere's, also possible sinusitis echo shows no LVEF dysfunction, with some LV hypertrophy Head CT negative for intracranial abnormalities; mild sinus inflammation venous Doppler and V/Q scan negative for clots no orthostasis - but presented with hypotension will have patient ambulate in hallways Acute Kidney Injury superimposed on CKD stage 3 likely dehydration, excessive iced tea and HCTZ use creat = 2.0 on admission IVFs, down to 1.6 continue IVFs and monitor Possible Acute Sinusitis Head CT Mild ethmoid and sphenoid sinus mucosal thickening will stop Rocephin and start doxycycline BID dosing monitor WBC count HTN blood pressure initially low due to dehydration? held Lisinopril/HCTZ due to SAM now BP is beginning to be elevated, will give one dose of Hydralazine and recheck kidney function and BP in AM DM2 hold oral agents sliding scale insulin DVT ppx SCDs FULL CODE
[2016-08-10] MEDS ORDERED: HydrALAZINE HCL 20 MG/ML VIAL IV. SCH (19:00)
[2016-08-10 20:00] VITALS: BP 133/84; PULSE 82; TEMP 36.8; O2SAT 92
[2016-08-10] MEDS: DOXYCYCLINE HYCLATE 100 MG CAP PO SCH (20:35)
[2016-08-11] VITALS (7 sets, daily range): BP systolic 131–168; BP diastolic 62–93; PULSE 78–102; TEMP 36.4–36.8; O2SAT 92–96
[2016-08-11 06:00] LABS: MEAN CELL VOLUME 86.9 fL (80-100); MEAN CORPUSCULAR HEMOGLOBIN 27.5 pg (25-34); MEAN CORPUSCULAR HGB CONC 31.6 g/dl (32-36); MEAN PLATELET VOLUME 10.1 fL (7.4-10.4); PLATELET COUNT 312 K/uL (130-400); RED BLOOD COUNT 4.26 M/uL (4.2-5.4); WHITE BLOOD COUNT 13.19 K/uL (4.8-10.8)
[2016-08-11] MEDS: LEVOTHYROXINE 125 MCG TAB PO SCH (06:15)
[2016-08-11] MEDS: INSULIN ASPART 100 UNITS/ML 3 ML PEN SC SCH ×3 (06:30→16:30)
[2016-08-11 06:34] LABS: BUN/CREATININE RATIO 27.1 (10-20); CALCIUM 8.6 mg/dl (8.5-10.1); CREATININE 1.2 mg/dl (0.60-1.20); MAGNESIUM 1.8 mg/dl (1.8-2.4); POTASSIUM 3.3 mmol/L (3.5-5.1)
[2016-08-11] MEDS: DOXYCYCLINE HYCLATE 100 MG CAP PO SCH (08:09)
[2016-08-11] MEDS: SULFASALAZINE 500 MG TABEC PO SCH (08:09)
[2016-08-11] MEDS: GABAPENTIN 300 MG CAP PO SCH ×2 (08:10→14:57)
[2016-08-11] MEDS: PRAVASTATIN SOD 20 MG TAB PO SCH (08:10)
[2016-08-11] MEDS: ASPIRIN 81 MG ECTAB PO SCH (08:10)
[2016-08-11] MEDS: METHYLPREDNISOLONE 4 MG TAB PO SCH (08:10)
[2016-08-11] MEDS: VENLAFAXINE HCL XR 75 MG CAPXR PO SCH (08:10)
[2016-08-11] MEDS: BETAHISTINE PO SCH (08:10)
[2016-08-11] MEDS ORDERED: LISINOPRIL/HCTZ 20/25MG TAB PO SCH (09:00)
[2016-08-11] MEDS: POTASSIUM CHLR 10 MEQ / WTR 10 MEQ in PREMIXED WATER 100 ML IV SCH ×2 (09:11→10:54)
--- NOTE | 2016-08-11 16:20 | Progress Note ---
Subjective Date of Service: August 11, 2016. Subjective Pt evaluation today including: conversation w/ patient, physical exam, lab review, review of studies, review of inpatient medication list Saw/examined the patient in room 282-2 She is doing well, no problems/issues to note - denies dizziness, denies chest pain +post-nasal drip Review of Systems Constitutional: No chills, No fever Respiratory: No shortness of breath Cardiac: No chest pain Neurologic: No balance problems, No numbness/tingling, No vertigo, No weakness Medications Current Inpatient Medications Medications (Trade) Dose Ordered Sig/Laury Route Start Time Stop Time Status Last Admin Dose Admin Acetaminophen (Tylenol Tab) 650 mg Q4H PRN PO 08/09/16 20:00 09/08/16 19:59 08/10/16 20:20 650 MG Ondansetron HCl (Zofran Inj) 4 mg Q6H PRN IV 08/09/16 20:00 09/08/16 19:59 Nitroglycerin (Nitrostat Tab) 0.4 mg UD PRN SL 08/09/16 20:00 09/08/16 19:59 Aspirin (Ecotrin Tab) 81 mg DAILY PO 08/10/16 09:00 09/09/16 08:59 08/11/16 08:10 81 MG Gabapentin (Neurontin Cap) 300 mg BID@0900,1400 PO 08/10/16 09:00 09/09/16 08:59 08/11/16 14:57 300 MG Gabapentin (Neurontin Cap) 900 mg HS PO 08/09/16 21:00 09/08/16 20:59 08/10/16 20:18 900 MG Levothyroxine Sodium (Synthroid Tab) 125 mcg DAILYBB PO 08/10/16 06:30 09/09/16 06:29 08/11/16 06:15 125 MCG Methylprednisolone (Medrol Tab) 8 mg QAM PO 08/10/16 09:00 09/09/16 08:59 08/11/16 08:10 8 MG Pravastatin Sodium (Pravachol Tab) 40 mg DAILY PO 08/10/16 09:00 09/09/16 08:59 08/11/16 08:10 40 MG Sulfasalazine (Azulfidine Delayed Rel Tab) 500 mg BID PO 08/09/16 21:00 09/08/16 20:59 08/11/16 08:09 500 MG Venlafaxine HCl (effeXOR EXTENDED REL CAP) 225 mg QAM PO 08/10/16 09:00 09/09/16 08:59 08/11/16 08:10 225 MG Insulin Aspart (novoLOG ASPART) SLIDING SCALE If C... ACHS SC 08/09/16 21:00 09/08/16 20:59 08/10/16 17:50 3 UNITS Glucose (Glucose 40% Gel) 15-30 GRAMS 15 GRAMS... UD PRN PO 08/09/16 20:15 09/08/16 20:14 Glucose (Glucose Chew Tab) 4-8 Tablets 4 Tabl... UD PRN PO 08/09/16 20:15 09/08/16 20:14 Dextrose (Dextrose 50% 50ML Syringe) 25-50ML OF 50% DW IV FOR... UD PRN IV 08/09/16 20:15 09/08/16 20:14 Glucagon (Glucagon Inj) 1 mg UD PRN SQ 08/09/16 20:15 09/08/16 20:14 Zolpidem Tartrate (Ambien Tab) 2.5 mg HSZ PRN PO 08/10/16 02:00 09/09/16 01:59 08/10/16 20:19 2.5 MG Non-Formulary Medication (Non-Formulary Patient'S Own Med) 1 ea BID PO 08/10/16 09:00 09/09/16 08:59 08/11/16 08:10 1 EA Ropinirole HCl (Requip Tab) 4 mg HS PRN PO 08/10/16 17:00 09/09/16 16:59 08/10/16 23:20 4 MG Doxycycline Hyclate (Vibramycin Cap) 100 mg BID PO 08/10/16 21:00 08/20/16 20:59 08/11/16 08:09 100 MG Objective Vital Signs Date Time Temp Pulse Resp B/P Pulse Ox O2 Delivery O2 Flow Rate FiO2 08/11/16 15:15 36.8 78 18 141/83 96 Room Air 08/11/16 11:30 36.5 102 20 143/93 94 Room Air 08/11/16 07:12 36.4 85 18 131/62 92 Room Air 08/11/16 04:37 36.6 85 20 159/91 92 Room Air 08/11/16 04:00 Room Air 08/11/16 00:24 36.8 82 20 148/77 93 Room Air 08/11/16 00:00 Room Air 08/10/16 20:00 Room Air 08/10/16 20:00 36.8 82 20 133/84 92 Room Air Physical Exam General Appearance: no apparent distress Respiratory/Chest: chest non-tender, lungs clear, normal breath sounds, no respiratory distress, no accessory muscle use Cardiovascular: regular rate, rhythm, no edema, no murmur Abdomen: normal bowel sounds, non tender, soft Extremities: normal inspection, no pedal edema Laboratory Results Last 24 Hours Test 08/10/16 16:46 08/10/16 20:17 08/11/16 05:29 08/11/16 07:15 Bedside Glucose 141 mg/dl 112 mg/dl 156 mg/dl White Blood Count 13.19 K/uL Red Blood Count 4.26 M/uL Hemoglobin 11.7 g/dL Hematocrit 37.0 % Mean Corpuscular Volume 86.9 fL Mean Corpuscular Hemoglobin 27.5 pg Mean Corpuscular Hemoglobin Concent 31.6 g/dl RDW Standard Deviation 45.5 fL RDW Coefficient of Variation 14.5 % Platelet Count 312 K/uL Mean Platelet Volume 10.1 fL Sodium Level 141 mmol/L Potassium Level 3.3 mmol/L Chloride Level 104 mmol/L Carbon Dioxide Level 27 mmol/L Anion Gap 10.0 mmol/L Blood Urea Nitrogen 33 mg/dl Creatinine 1.20 mg/dl Est Creatinine Clear Calc Drug Dose 50.8 ml/min Estimated GFR () 53.4 Estimated GFR (Non- 46.1 BUN/Creatinine Ratio 27.1 Random Glucose 136 mg/dl Calcium Level 8.6 mg/dl Magnesium Level 1.8 mg/dl Test 08/11/16 11:32 08/11/16 16:00 Bedside Glucose 144 mg/dl 170 mg/dl Assessment and Plan This is a 70 year old female with a PMH of HTN, DM2, Hypothyroidism, CKD stage 3 , issues with hypotensive episodes and lightheadedness, numbness/tingling, restless leg syndrome, anxiety/depression, RENÉ on CPAP came over via EMS from her PCP's office, when she passed out Syncope and Collapse 08/11 likely secondary to dehydration, doing better today ambulated in the hallways with no issues plan for discharge today 08/10 there are multiple factors playing a part including hypotension, dehydration; she has hx. of Meniere's, also possible sinusitis echo shows no LVEF dysfunction, with some LV hypertrophy Head CT negative for intracranial abnormalities; mild sinus inflammation venous Doppler and V/Q scan negative for clots no orthostasis - but presented with hypotension will have patient ambulate in hallways Acute Kidney Injury superimposed on CKD stage 3 08/11 creat down to 1.2 will d/c home today, outpatient PRP 08/10 likely dehydration, excessive iced tea and HCTZ use creat = 2.0 on admission IVFs, down to 1.6 continue IVFs and monitor Possible Acute Sinusitis 08/11 will d/c on doxycycline 08/[address] Mild ethmoid and sphenoid sinus mucosal thickening will stop Rocephin and start doxycycline BID dosing monitor WBC count HTN blood pressure initially low due to dehydration? held Lisinopril/HCTZ due to SAM now BP is beginning to be elevated, will give one dose of Hydralazine and recheck kidney function and BP in AM DM2 hold oral agents sliding scale insulin DVT ppx SCDs FULL CODE
[2016-08-11] MEDS ORDERED: LISI-461 PO ×2 (16:30→17:28)
[2016-08-11] MEDS ORDERED: DXY100 PO ×2 (16:30→17:28)
[2016-08-11] MEDS ORDERED: ROPI1TAB PO ×2 (16:30→17:28)
--- NOTE | 2016-08-11 16:38 | Discharge Instructions ---
Discharge Instructions Date of Service August 11, 2016. Admission Reason for Admission: Hypotension, Syncope Discharge Discharge Diagnosis / Problem: Hypotension, Acute Kidney Injury, Acute Sinusitis Discharge Goals Goal(s): Decrease discomfort, Improve function, Diagnostic testing, Therapeutic intervention Activity Recommendations Activity Limitations: resume your previous activity . Instructions / Follow-Up Instructions / Follow-Up Please follow-up with Dr. Mondragon - you will get a phone call with an appointment date/time You should also follow-up with Dr. Bonilla of neurology for your restless leg syndrome Stop taking Lisinopril-HCTZ - start Lisinopril 10mg daily You will be prescribed doxycycline 100mg BID for a sinus infection Current Hospital Diet Patient's current hospital diet: AHA Diet (Heart Healthy), Diabetes Type 2 Diet Discharge Diet Recommended Diet: AHA Diet (Heart Healthy), Diabetes Type 2 Diet Pending Studies Studies pending at discharge: no Medical Emergencies . Who to Call and When: Medical Emergencies: If at any time you feel your situation is an emergency, please call 911 immediately. . Non-Emergent Contact Non-Emergency issues call your: Primary Care Provider, Neurologist . . "Provider Documentation" section prepared by Manisha Calero. . VTE Core Measure Inpt VTE Proph given/why not?: SCD's
--- NOTE | 2016-08-11 16:44 | Discharge Summary ---
Discharge Summary Date of Service August 11, 2016. Discharge Summary Admission Date: August 09, 2016 at 19:59 Discharge Date: August 11, 2016 Discharge Disposition: Home Principal Diagnosis: Hypotension, Dehydration Acute Kidney Injury Acute Sinusitis Medication Reconciliation New Medications: Lisinopril (Lisinopril) 10 Mg Tab 10 MG PO DAILY for 30 Days, #30 TABS Ropinirole Hydrochloride (Requip) 1 Mg Tab 1 TAB PO HS for 30 Days, #30 TAB 2 Refills Doxycycline Hyclate (Doxycycline Hyclate) 100 Mg Cap 100 MG PO BID for 5 Days, #10 CAP Continued Medications: Aspirin (Aspirin EC Low Dose) 81 Mg Ectab 81 MG PO DAILY for 30 Days Betahistine Hydrochloride (Bul (Betahistine Dihydrochlori) 1 Pow Pow 16 MG PO BID Gabapentin (Neurontin) 300 Mg Cap 900 MG PO HS, CAP Gabapentin (Neurontin) 300 Mg Cap 300 MG PO BID, CAP Hydrocodone-Acetaminophen (Lortab 5-325 mg) 1 Tab Tab 1 TAB PO Q6 PRN for Pain Hydrocortisone 1% (Hydrocortisone 1%) 90 Appln/30 Gm Cr 1 DOSE TOP UD Hydroxyzine HCl (Hydroxyzine HCl) 25 Mg Tab 1 TAB PO Q6H PRN for itching and sleep Levothyroxine Sodium (Levothyroxine Sodium) 125 Mcg Tab 1 TAB PO QAM for 90 Days, #90 TAB 3 Refills Melatonin (Melatonin Maximum Strengt) 5 Mg Tab 10 MG PO HS PRN for Insomnia for 30 Days, #30 TAB 1 Refill Meloxicam (Mobic) 7.5 Mg Tab 7.5 MG PO DAILY, TAB Metformin Hcl Er (Glucophage Er) 500 Mg Tab 1000 MG PO BID, TAB Methylprednisolone (Medrol) 4 Mg Tab 8 MG PO QAM, TAB Pravastatin (Pravachol ) 20 Mg Tab 40 MG PO DAILY, TAB Pregabalin (Lyrica) 50 Mg Cap 50 MG PO DIRECTED, CAP has not started taking yet 1 tab HS x 1 week, then BID x 1 week, then TID Sulfasalazine (Sulfazine Ec) 500 Mg Tabdr 500 MG PO BID, TAB Venlafaxine Hcl (Venlafaxine Extended Rel) 75 Mg Cap 225 MG PO QAM, CAP [miconazole 2% powder] () 1 DOSE TOP UD Discontinued Medications: Lisinopril/Hctz (Zestoretic 20MG/25MG) Tab 2 TAB PO QAM, TAB Ropinirole (Requip) 2 Mg Tab 4 MG PO HS PRN for prn, TAB Admission Information HPI (per Admitting provider): 70 year old female who presents to the ER after a syncopal event at her PCPs office. Patient reports she was there for concerns of right sided pain. She reports that when she stood up from the exam table she felt very lightheaded and dizzy. She says the next thing she knew she was on the floor. She was told she had an episode of vomiting but does not remember. She denies preceding chest pain or shortness of breath. In the office patient was hypotensive, hypoxic, and EKG showed a new LBBB. Patient reports she has been feeling at her baseline recently. She saw neurology yesterday for numbness and pain in both of her legs. She was given a prescription for Lyrica however has not started taking it yet. She reports she feels tired of the most time but that is not necessarily new. She denies exertional chest pain. Reports she will have shortness of breath on occasion which is unchanged from her baseline. She denies any recent changes in her eating habits but does note she drinks a large amount of ice tea. She denies abdominal pain, nausea, vomiting, or diarrhea. No fever or chills. She denies any urinary symptoms. While trying to provide a urine sample in the ER, there was bright red blood noted in the toilet. Patient reports she did not void nor did she think she moved her bowels. In the ER, patient's creat is found to be 2.0 (baseline runs in the low 1's), orthostatic BPs are positive. Head CT, CXR, and CT abd/pelvis are negative for acute findings. Patient was given 2L IVF. Physical Exam (per Admitting): General Appearance: no apparent distress Head: normocephalic Eyes: normal inspection ENT: hearing grossly normal Neck: supple, no JVD Respiratory/Chest: lungs clear, normal breath sounds, no respiratory distress Cardiovascular: regular rate, rhythm, no edema, normal peripheral pulses Abdomen/GI: normal bowel sounds, non tender, soft Extremities/Musculoskelatal: + pertinent finding (tenderness over right ribs just under right breast) Neurologic/Psych: no motor/sensory deficits, alert, normal mood/affect, oriented x 3 Skin: normal color, warm/dry Hospital Course This is a 70 year old female with a PMH of HTN, DM2, Hypothyroidism, CKD stage 3 , issues with hypotensive episodes and lightheadedness, numbness/tingling, restless leg syndrome, anxiety/depression, RENÉ on CPAP came over via EMS from her PCP's office, when she passed out Syncope and Collapse 08/11 likely secondary to dehydration, doing better today ambulated in the hallways with no issues plan for discharge today 08/10 there are multiple factors playing a part including hypotension, dehydration; she has hx. of Meniere's, also possible sinusitis echo shows no LVEF dysfunction, with some LV hypertrophy Head CT negative for intracranial abnormalities; mild sinus inflammation venous Doppler and V/Q scan negative for clots no orthostasis - but presented with hypotension will have patient ambulate in hallways Acute Kidney Injury superimposed on CKD stage 3 08/11 creat down to 1.2 will d/c home today, outpatient PRP 08/10 likely dehydration, excessive iced tea and HCTZ use creat = 2.0 on admission IVFs, down to 1.6 continue IVFs and monitor Possible Acute Sinusitis 08/11 will d/c on doxycycline 08/[address] Mild ethmoid and sphenoid sinus mucosal thickening will stop Rocephin and start doxycycline BID dosing monitor WBC count HTN blood pressure initially low due to dehydration? held Lisinopril/HCTZ due to SAM now BP is beginning to be elevated, will give one dose of Hydralazine and recheck kidney function and BP in AM DM2 hold oral agents sliding scale insulin DVT ppx SCDs FULL CODE Total time spent on discharge = 35 minutes This includes examination of the patient, discharge planning, medication reconciliation, and communication with other providers. Discharge Instructions Please follow-up with Dr. Mondragon - you will get a phone call with an appointment date/time You should also follow-up with Dr. Bonilla of neurology for your restless leg syndrome Stop taking Lisinopril-HCTZ - start Lisinopril 10mg daily You will be prescribed doxycycline 100mg BID for a sinus infection Additional Copies To Marcella Mondragon M.D.
== END 2016-08-11 18:12 | disposition home or self-care (01) | DRG 315 ==
LOC: ENRESERVTM → ENRESERVDT → EDBD 16:42 → C.EDA 16:43 → C.MED 19:59
PROVIDERS: ADMIT Internal Medicine; ATTEND Family Medicine
DX: I95.9 Hypotension, unspecified (principal); N17.9 Acute kidney failure, unspecified; E86.0 Dehydration; J01.90 Acute sinusitis, unspecified; R55 Syncope and collapse; H81.09 Meniere's disease, unspecified ear; N18.3 Chronic kidney disease, stage 3 (moderate); T50.2X5A Adverse effect of carbonic-anhydrase inhibitors, benzothiadiazides and other diuretics, initial encounter; I10 Essential (primary) hypertension; E11.9 Type 2 diabetes mellitus without complications; Z83.3 Family history of diabetes mellitus

== ENCOUNTER 2018-08-21 20:53 | Inpatient (IN) ==
[~2018-08-21 20:53] MED LIST changes: -ACET-1138 PO; -ASPEC81 PO; -ATR25 PO; -BETAPOW PO; -GABA-113 PO; -HYDCR1CL TOP; +HydrALAZINE HCL 20 MG/ML VIAL IV ONE; -LEVO125T5 PO; -LISI-788 PO; -MELATAB2 PO; -METF500T5 PO; -MICONAZOLE 2% TOP; -ONDA8TAB6 PO; -OXYSR10 PO; -ROPI0.5T15 PO; -RXC5 PO; -SNK PO; -VENL75CA73 PO
[2018-08-21] MEDS ORDERED: CEFEPIME 2,000 MG/20 ML VIAL IV STA (21:27)
[2018-08-21] MEDS ORDERED: SODIUM CHLORIDE 0.9% 1000ML 500 ML IV ONE (21:27)
--- NOTE | 2018-08-21 21:46 | XRay Report ---
XR chest 1V portable HISTORY: 72 years-old Female Sepsis acute sepsis COMPARISON: Chest radiograph 11/18/2017 TECHNIQUE: Portable AP view of the chest FINDINGS: Cardiac silhouette is enlarged, unchanged. Vascular congestion with mild interstitial coarsening. No pneumothorax. Suggestion of trace pleural effusions with subsegmental bibasilar opacities. Inferior l eft costophrenic angle is excluded from the [id number]. Degenerative changes of the shoulders and spine. IMPRESSION: 1. Cardiomegaly with suggestion of mild pulmonary edema. 2. Probable trace pleural effusions with bibasilar opacities suggestive of atelectasis or pneumonitis . The above report was generated using voice recognition software. It may contain grammatical, syntax o r spelling errors. Electronically signed by: Arnoldo Stiles M.D. 08/21/2018 9:45 PM
[2018-08-21 21:47] LABS: Hematocrit (blood only) 39.3 % (37-47); Hemoglobin 12.3 g/dL (12.0-16.0); Mean Corpuscular Hgb Conc 31.3 g/dL (32-36); Mean Corpuscular Volume 87.5 fL (80-100); Mean Platelet Volume 11.4 fL (7.4-10.4); Platelet Count 237 K/uL (130-400); RDW Coefficient of Variation 15.4 % (11.5-14.5); RDW Standard Deviation 49.2 fL (36.4-46.3); Red Blood Count 4.49 M/uL (4.2-5.4); White Blood Count 14.55 K/uL (4.8-10.8)
[2018-08-21 21:57] LABS: Partial Thromboplastin Ratio 1.1; Partial Thromboplastin Time 29.7 Seconds (21.0-31.0)
[2018-08-21 22:03] LABS: Albumin Level 3.7 gm/dl (3.4-5.0); Creatinine Clr Calc Pharmacy 45.2 ml/min; Est GFR (African American) 46.5; Est GFR (Non-African American) 40.1; Magnesium 1.8 mg/dl (1.8-2.4); Potassium 4.1 mmol/L (3.5-5.1)
[2018-08-21 22:05] LABS: Appearance Urine Clear (Clear); Bacteria Urine Automated Negative (Negative); Bilirubin Urine Negative (Negative); Blood Urine 3+ (Negative); Color Urine Yellow; Glucose Urine UA Negative (Negative); Ketones Urine Negative (Negative); Leukocyte Esterase Urine Negative (Negative); Nitrite Urine Negative (Negative); Protein Urine 3+ (Negative); RBC Urine Automated >30 /hpf (0-4); Urobilinogen Urine Negative (Negative)
[2018-08-21 22:06] LABS: Albumin Globulin Ratio 0.8 (0.9-2); Bilirubin,Total 0.4 mg/dl (0.2-1); Globulin 4.7 gm/dl (2.5-4.0); Total Protein 8.4 gm/dl (6.4-8.2)
[2018-08-21 22:14] LABS: Basophils # (auto) 0.04 K/uL (0-0.2); Basophils % (auto) 0.3 %; Eosinophils # (auto) 0.01 K/uL (0-0.5); Eosinophils % (auto) 0.1 %; Immature Granulocytes % (auto) 0.7 %; Lymphocytes # (auto) 1.26 K/uL (1.2-3.4); Lymphocytes % (auto) 8.7 %; Monocytes # (auto) 1.29 K/uL (0.11-0.59); Monocytes % (auto) 8.9 %; Neutrophils # (auto) 11.85 K/uL (1.4-6.5); Neutrophils % (auto) 81.3 %
[2018-08-21 22:18] LABS: Allen Test Pos (Pos); HCO3 ABG 24 mmol/L (19-24); Oxygen Saturation ABG 91.1 % (90-95); PCO2 ABG 49 mmHg (35-46); PO2 ABG 65 mm/Hg (80-95)
--- NOTE | 2018-08-21 22:24 | CT Scan Report ---
CT head/brain wo con CLINICAL HISTORY: 72 years-old Female with confusion. Acutely altered mental status TECHNIQUE: Multiple axial CT images of the head were obtained without contrast. A dose lowering tech nique was utilized adhering to the principles of ALARA. CT DOSE: 614.27 mGy.cm COMPARISON: CT head 11/18/2017. FINDINGS: No acute intracranial hemorrhage, midline shift, intracranial mass, hydrocephalus, territorial ischem ia or abnormal extra-axial collection. Mild age-related involutional changes. Patchy white matter hyp odensities are suggestive of underlying chronic microvascular ischemic disease. The calvarium is intact. Mild left and moderate right mucoperiosteal thickening of the maxillary sin uses. Mastoid air cells are clear on the left. Trace right mastoid effusion. Prior bilateral cataract repair. The soft tissues are unremarkable. IMPRESSION: No acute intracranial abnormality. The above report was generated using voice recognition software. It may contain grammatical, syntax o r spelling errors. Electronically signed by: Arnoldo Stiles M.D. 08/21/2018 10:23 PM
[2018-08-21 22:57] LABS: Troponin I 0.601 ng/ml (0-0.045)
--- NOTE | 2018-08-21 23:04 | Emergency Department Note ---
Entered by Pierce Barr acting as a scribe for History of Present Illness General Chief complaint: Illness Stated complaint: AMS Time Seen by Provider: 08/21/18 21:18 Source: family () Mode of arrival: EMS Limitations: no limitations History of Present Illness Onset (ago): day(s) (couple days) Location: head Pain Consistency: + constant Quality: + constant and + other (head throbbing) Associated symptoms: + denies other symptoms (dizzy spells), + confusion, + w eakness and + other (urinary incontinence); no fever/chills The patient is a 72 year old female who presents to the Emergency Room with comp laints of an constant illness beginning a couple days ago. The patient's states the patient complained about not feeling right a couple days ago. He states yesterday the patient could not get out of bed. He states today she could not get out of bed and notes she sat up once. He states the patient complained about her head throbbing. He states the patient soiled the bed with urine and states the urine had a bad smell. He notes yesterday the patient wrote a check with the wrong date. He notes the patient is not normally confused. He notes the patient is supposed to use a C-PAP but refused to use it the last 4 days. He notes the patient has Parkinsons. He denies the patient having fevers and a previous UTI. He notes Dr. Gutpa did a head scan recently. He states the patient's PCP is Dr. Mondragon. He states she sees Dr. Del Real for her knee. He notes one of the patient's medications was recently dropped from 10 mg to 5 mg. Home Medications Home Medications Medication Instructions Recorded Confirmed Type Betahistine Hydrochloride 16 mg PO BID 11/18/17 08/21/18 History aspirin 81 mg PO DAILY 11/18/17 08/21/18 History pravastatin [Pravachol] 40 mg PO DAILY 11/18/17 08/21/18 History sulfasalazine 1,000 mg PO BID 11/18/17 08/21/18 History amlodipine 5 mg PO DAILY 08/21/18 08/21/18 History carbidopa-levodopa 1 tab PO TID 08/21/18 08/21/18 History cyanocobalamin (vitamin B-12) 1,000 mcg PO DAILY 08/21/18 08/21/18 History [Vitamin B-12] levothyroxine 125 mcg PO QAM 08/21/18 08/21/18 History lisinopril 10 mg PO DAILY 08/21/18 08/21/18 History meclizine 25 mg PO TID PRN 08/21/18 08/21/18 History melatonin 10 mg PO HS 08/21/18 08/21/18 History metformin 500 mg PO DAILY 08/21/18 08/21/18 History oxybutynin chloride 5 mg PO DAILY 08/21/18 08/21/18 History pregabalin [Lyrica] 200 mg PO BID 08/21/18 08/21/18 History ropinirole 4 mg PO HS 08/21/18 08/21/18 History terazosin 10 mg PO DIRECTED 08/21/18 08/21/18 History venlafaxine 150 mg PO DAILY 08/21/18 08/21/18 History Allergies Allergy/AdvReac Type Severity Reaction Status Date / Time No Known Allergies Allergy Verified 08/21/18 23:03 Past Med/Surg History Medical History CKD (chronic kidney disease), stage III DM type 2 (diabetes mellitus, type 2) Depression Diabetes mellitus, type II Dyslipidemia Generalized anxiety disorder HTN (hypertension) Hypothyroidism Meniere's disease RENÉ on CPAP Restless leg syndrome Rheumatoid arthritis Surgical History H/O sinus surgery History of carpal tunnel surgery History of tubal ligation Hx of total knee arthroplasty "Left, Dr. Del Real" Family History Other AAA (abdominal aortic aneurysm) Diabetes Family history non-contributory Hypertension Myotonic dystrophy Social History Preferred Language: Japanese Communication Ability: Effective Beliefs That Will Affect Care: None marital status: Current Living Situation: Spouse Feels Safe at Home: Yes Smoking Status: Unknown if ever smoked Hx Alcohol Use: No Hx Substance Use: No Review of Systems See HPI for pertinent positives & negatives. and A total of 10 systems reviewed and were otherwise negative Physical Exam Vital Signs Vital Signs - 24 hr 08/21/18 21:08 08/21/18 21:12 08/21/18 21:14 Temperature 36.9 C Temperature Source Oral Sepsis Recent Fever Within 48 Hours No Sepsis New/Unexplained Change in Mental Status Yes Sepsis Action Taken by Nursing No Action Required Pulse Rate 85 82 Pulse Rate from SpO2 Sensor 83 82 Respiratory Rate 20 20 Respiratory Effort / Characteristics Labored Respiratory Depth Shallow Respiratory Pattern Blood Pressure 201/97 H Blood Pressure Mean 131 Pulse Oximetry 98 98 99 Oxygen Delivery Method Room Air Non-rebreather Fraction of Inspired Oxygen 08/21/18 21:20 08/21/18 21:21 08/21/18 21:30 Temperature Temperature Source Sepsis Recent Fever Within 48 Hours Sepsis New/Unexplained Change in Mental Status Sepsis Action Taken by Nursing Pulse Rate 79 78 72 Pulse Rate from SpO2 Sensor 69 76 76 Respiratory Rate 17 16 16 Respiratory Effort / Characteristics Respiratory Depth Respiratory Pattern Blood Pressure 162/77 H Blood Pressure Mean 105 Pulse Oximetry 99 98 Oxygen Delivery Method BiPAP Fraction of Inspired Oxygen 08/21/18 21:31 08/21/18 21:35 08/21/18 21:40 Temperature Temperature Source Sepsis Recent Fever Within 48 Hours Sepsis New/Unexplained Change in Mental Status Sepsis Action Taken by Nursing Pulse Rate 78 79 90 Pulse Rate from SpO2 Sensor 75 89 Respiratory Rate 17 18 19 Respiratory Effort / Characteristics Non-Labored Spontaneous Respiratory Depth Normal Respiratory Pattern Regular Blood Pressure 190/88 H Blood Pressure Mean 122 Pulse Oximetry 99 96 93 Oxygen Delivery Method Fraction of Inspired Oxygen 30 08/21/18 21:46 08/21/18 21:50 08/21/18 22:00 Temperature Temperature Source Sepsis Recent Fever Within 48 Hours Sepsis New/Unexplained Change in Mental Status Sepsis Action Taken by Nursing Pulse Rate 89 91 H 83 Pulse Rate from SpO2 Sensor 90 80 84 Respiratory Rate 18 19 19 Respiratory Effort / Characteristics Respiratory Depth Respiratory Pattern Blood Pressure 167/105 H Blood Pressure Mean 125 Pulse Oximetry 91 91 91 Oxygen Delivery Method Fraction of Inspired Oxygen 08/21/18 22:02 08/21/18 22:16 08/21/18 22:20 Temperature Temperature Source Sepsis Recent Fever Within 48 Hours Sepsis New/Unexplained Change in Mental Status Sepsis Action Taken by Nursing Pulse Rate 83 83 Pulse Rate from SpO2 Sensor 83 89 83 Respiratory Rate 17 16 Respiratory Effort / Characteristics Respiratory Depth Respiratory Pattern Blood Pressure 196/79 H 200/79 H Blood Pressure Mean 118 119 Pulse Oximetry 90 95 91 Oxygen Delivery Method BiPAP Fraction of Inspired Oxygen 08/21/18 22:21 08/21/18 22:30 08/21/18 22:31 Temperature Temperature Source Sepsis Recent Fever Within 48 Hours Sepsis New/Unexplained Change in Mental Status Sepsis Action Taken by Nursing Pulse Rate 81 75 73 Pulse Rate from SpO2 Sensor 82 77 72 Respiratory Rate 17 17 16 Respiratory Effort / Characteristics Respiratory Depth Respiratory Pattern Blood Pressure 182/78 H Blood Pressure Mean 112 Pulse Oximetry 91 92 92 Oxygen Delivery Method BiPAP Fraction of Inspired Oxygen 08/21/18 22:46 08/21/18 23:00 08/21/18 23:01 Temperature Temperature Source Sepsis Recent Fever Within 48 Hours Sepsis New/Unexplained Change in Mental Status Sepsis Action Taken by Nursing Pulse Rate 76 80 88 Pulse Rate from SpO2 Sensor 77 81 87 Respiratory Rate 18 18 19 Respiratory Effort / Characteristics Respiratory Depth Respiratory Pattern Blood Pressure 175/72 H 147/86 H Blood Pressure Mean 106 106 Pulse Oximetry 90 91 90 Oxygen Delivery Method Fraction of Inspired Oxygen 08/21/18 23:16 08/21/18 23:21 08/21/18 23:30 Temperature Temperature Source Sepsis Recent Fever Within 48 Hours Sepsis New/Unexplained Change in Mental Status Sepsis Action Taken by Nursing Pulse Rate 76 71 82 Pulse Rate from SpO2 Sensor 77 81 Respiratory Rate 17 18 17 Respiratory Effort / Characteristics Non-Labored Spontaneous Respiratory Depth Normal Respiratory Pattern Regular Blood Pressure 139/68 Blood Pressure Mean 91 Pulse Oximetry 93 91 93 Oxygen Delivery Method Fraction of Inspired Oxygen 30 08/21/18 23:31 Temperature Temperature Source Sepsis Recent Fever Within 48 Hours Sepsis New/Unexplained Change in Mental Status Sepsis Action Taken by Nursing Pulse Rate 80 Pulse Rate from SpO2 Sensor 74 Respiratory Rate 20 Respiratory Effort / Characteristics Respiratory Depth Respiratory Pattern Blood Pressure 172/74 H Blood Pressure Mean 106 Pulse Oximetry 94 Oxygen Delivery Method Fraction of Inspired Oxygen GENERAL: Patient is in no acute distress. HEENT: No acute trauma, normocephalic atraumatic, mucous membranes are dry, no nasal congestion, no scleral icterus. PERRL. NECK: No stridor, no adenopathy, no meningismus, trachea is midline. LUNGS: Clear to auscultation bilaterally when listening anteriorly, no wheeze, no rhonchi, breath sounds equal. HEART: 2/6 systolic murmur. Regular rate and rhythm. ABDOMEN: Soft, nontender, bowel sounds positive, no hernias, no peritonitis. EXTREMITIES: No cyanosis or edema, full range of motion of all the joints without pain or difficulty, no signs for acute trauma. NEUROLOGIC: Somnolent. Awakes to pain. Confused. Does move all extremities. SKIN: No rash, no jaundice, no diaphoresis. Course 2119: The patient was evaluated in room A12B, and a complete history and physical examination were performed. 2230: I discussed the patient's case with Dr. Galaviz - [place] hospitalist. He will evaluate the patient for further management. 2234: I reevaluated the patient. I updated the patient's on the patient's results and her admission. Administered Medications Ioversol (Optiray 320 125ml) 101 ml IV ONCE PRN PRN Reason: Interaction Checking Stop: 08/26/18 00:57 Last Admin: 08/22/18 00:59 Dose: 101 ml Documented by: [id number] Discontinued Medications Albuterol (Duoneb) 3 ml NEB NOW STA Stop: 08/21/18 23:42 Last Admin: 08/22/18 00:03 Dose: 3 ml Documented by: [id number] Furosemide (Lasix) 40 mg IV ONE STA Stop: 08/21/18 23:38 Last Admin: 08/22/18 00:01 Dose: 40 mg Documented by: [id number] Hydralazine HCl (Hydralazine Hcl) 2.5 mg IV NOW ONE Stop: 08/21/18 02:42 Last Admin: 08/22/18 00:03 Dose: 2.5 mg Documented by: [id number] Cefepime HCl (Maxipime) 2,000 mg in 20 mls @ 5 mls/min IV NOW STA; Protocol Stop: 08/21/18 21:30 Last Admin: 08/21/18 21:57 Dose: 5 mls/min Documented by: [id number] Sodium Chloride (Nss 1000ml) 500 mls @ 999 mls/hr IV .Q31M ONE Stop: 08/21/18 21:57 Last Infusion: 08/21/18 22:21 Dose: 0 mls/hr Documented by: [id number] Admin: 08/21/18 21:57 Dose: 999 mls/hr Documented by: [id number] Medical Decision Making Differential Diagnosis Differential Diagnosis: Sepsis, UTI, pneumonia, CO2 retention, hypoxia, intracranial bleeding, stroke, anemia, liver or renal failure, and electrolyte imbalance. Medical Records Attestation: I reviewed the patient's medical records. Home Medications Current Medication List: was personally reviewed by me Laboratory Data Attestation: I reviewed the patient's lab results. Result diagrams: 08/21/18 21:17 08/21/18 21:17 Lab Results 08/21/18 08/21/18 08/21/18 Range/Units 21:17 21:17 21:17 WBC 14.55 H (4.8-10.8) K/uL RBC 4.49 (4.2-5.4) M/uL Hgb 12.3 (12.0-16.0) g/dL Hct 39.3 (37-47) % MCV 87.5 (80-100) fL MCH 27.4 (25-34) pg MCHC 31.3 L (32-36) g/dL RDW Std Deviation 49.2 H (36.4-46.3) fL RDW Coeff of Bhavin 15.4 H (11.5-14.5) % Plt Count 237 (130-400) K/uL MPV 11.4 H (7.4-10.4) fL Immature Gran % (Auto) 0.7 % Neut % (Auto) 81.3 % Lymph % (Auto) 8.7 % Bladen % (Auto) 8.9 % Eos % (Auto) 0.1 % Baso % (Auto) 0.3 % Immature Gran # (Auto) 0.10 H (0.00-0.02) K/uL Neut # (Auto) 11.85 H (1.4-6.5) K/uL Lymph # (Auto) 1.26 (1.2-3.4) K/uL Bladen # (Auto) 1.29 H (0.11-0.59) K/uL Eos # (Auto) 0.01 (0-0.5) K/uL Baso # (Auto) 0.04 (0-0.2) K/uL PT 10.0 (9.0-12.0) Seconds INR 1.0 (0.9-1.1) APTT 29.7 (21.0-31.0) Seconds PTT Ratio 1.1 D-Dimer (0-500) ug/L FEU ABG pH (7.35-7.45) ABG pCO2 (35-46) mmHg ABG pO2 (80-95) mm/Hg ABG HCO3 (19-24) mmol/L ABG O2 Saturation (90-95) % ABG Base Excess (-9-1.8) mEq/L Richard Test (Pos) Barometric Pressure mm/Hg Oxygen Given Sodium (136-145) mmol/L Potassium (3.5-5.1) mmol/L Chloride (98-107) mmol/L Carbon Dioxide (21-32) mmol/L Anion Gap (3-11) BUN (7-18) mg/dl Creatinine (0.6-1.2) mg/dl Est Cr Clr Drug Dosing ml/min Est GFR ( Amer) Est GFR (Non-Af Amer) BUN/Creatinine Ratio (10-20) Glucose (70-99) mg/dl Lactate (0.4-2.0) mmol/L Calcium (8.5-10.1) mg/dl Magnesium (1.8-2.4) mg/dl Total Bilirubin (0.2-1) mg/dl AST (15-37) U/L ALT (12-78) U/L Alkaline Phosphatase (45-117) U/L Ammonia (11-32) umol/L Troponin I (0-0.045) ng/ml NT-Pro-B Natriuret Pep (0-900) pg/ml Total Protein (6.4-8.2) gm/dl Albumin (3.4-5.0) gm/dl Globulin (2.5-4.0) gm/dl Albumin/Globulin Ratio (0.9-2) Procalcitonin < 0.05 (0-0.5) ng/ml TSH (0.300-4.500) uIu/ml Urine Color Urine Appearance (Clear) Urine pH (4.5-7.5) Ur Specific Clover (1.000-1.030) Urine Protein (Negative) Urine Glucose (UA) (Negative) Urine Ketones (Negative) Urine Blood (Negative) Urine Nitrite (Negative) Urine Bilirubin (Negative) Urine Urobilinogen (Negative) Ur Leukocyte Esterase (Negative) Urine WBC (Auto) (0-5) /hpf Urine RBC (Auto) (0-4) /hpf U Hyaline Cast (Auto) (0-5) /lpf U Epithel Cells (Auto) (0-5) /lpf Urine Bacteria (Auto) (Negative) 08/21/18 08/21/18 08/21/18 Range/Units 21:17 21:17 21:17 WBC (4.8-10.8) K/uL RBC (4.2-5.4) M/uL Hgb (12.0-16.0) g/dL Hct (37-47) % MCV (80-100) fL MCH (25-34) pg MCHC (32-36) g/dL RDW Std Deviation (36.4-46.3) fL RDW Coeff of Bhavin (11.5-14.5) % Plt Count (130-400) K/uL MPV (7.4-10.4) fL Immature Gran % (Auto) % Neut % (Auto) % Lymph % (Auto) % Bladen % (Auto) % Eos % (Auto) % Baso % (Auto) % Immature Gran # (Auto) (0.00-0.02) K/uL Neut # (Auto) (1.4-6.5) K/uL Lymph # (Auto) (1.2-3.4) K/uL Bladen # (Auto) (0.11-0.59) K/uL Eos # (Auto) (0-0.5) K/uL Baso # (Auto) (0-0.2) K/uL PT (9.0-12.0) Seconds INR (0.9-1.1) APTT (21.0-31.0) Seconds PTT Ratio D-Dimer (0-500) ug/L FEU ABG pH (7.35-7.45) ABG pCO2 (35-46) mmHg ABG pO2 (80-95) mm/Hg ABG HCO3 (19-24) mmol/L ABG O2 Saturation (90-95) % ABG Base Excess (-9-1.8) mEq/L Richard Test (Pos) Barometric Pressure mm/Hg Oxygen Given Sodium 142 142 (136-145) mmol/L Potassium 4.1 4.1 (3.5-5.1) mmol/L Chloride 109 H 109 H (98-107) mmol/L Carbon Dioxide 27 24 (21-32) mmol/L Anion Gap 7.0 9.0 (3-11) BUN 24 H 24 H (7-18) mg/dl Creatinine 1.33 H 1.40 H (0.6-1.2) mg/dl Est Cr Clr Drug Dosing 45.2 42.9 ml/min Est GFR ( Amer) 46.5 43.7 Est GFR (Non-Af Amer) 40.1 37.7 BUN/Creatinine Ratio 18.0 17.0 (10-20) Glucose 109 H 108 H (70-99) mg/dl Lactate 1.4 (0.4-2.0) mmol/L Calcium 9.0 8.8 (8.5-10.1) mg/dl Magnesium 1.8 (1.8-2.4) mg/dl Total Bilirubin 0.4 (0.2-1) mg/dl AST 31 (15-37) U/L ALT 26 (12-78) U/L Alkaline Phosphatase 128 H (45-117) U/L Ammonia (11-32) umol/L Troponin I 0.601 H* (0-0.045) ng/ml NT-Pro-B Natriuret Pep 4212 H (0-900) pg/ml Total Protein 8.4 H (6.4-8.2) gm/dl Albumin 3.7 (3.4-5.0) gm/dl Globulin 4.7 H (2.5-4.0) gm/dl Albumin/Globulin Ratio 0.8 L (0.9-2) Procalcitonin (0-0.5) ng/ml TSH 2.260 (0.300-4.500) uIu/ml Urine Color Urine Appearance (Clear) Urine pH (4.5-7.5) Ur Specific Clover (1.000-1.030) Urine Protein (Negative) Urine Glucose (UA) (Negative) Urine Ketones (Negative) Urine Blood (Negative) Urine Nitrite (Negative) Urine Bilirubin (Negative) Urine Urobilinogen (Negative) Ur Leukocyte Esterase (Negative) Urine WBC (Auto) (0-5) /hpf Urine RBC (Auto) (0-4) /hpf U Hyaline Cast (Auto) (0-5) /lpf U Epithel Cells (Auto) (0-5) /lpf Urine Bacteria (Auto) (Negative) 08/21/18 08/21/18 08/21/18 Range/Units 21:17 21:40 21:59 WBC (4.8-10.8) K/uL RBC (4.2-5.4) M/uL Hgb (12.0-16.0) g/dL Hct (37-47) % MCV (80-100) fL MCH (25-34) pg MCHC (32-36) g/dL RDW Std Deviation (36.4-46.3) fL RDW Coeff of Bhavin (11.5-14.5) % Plt Count (130-400) K/uL MPV (7.4-10.4) fL Immature Gran % (Auto) % Neut % (Auto) % Lymph % (Auto) % Bladen % (Auto) % Eos % (Auto) % Baso % (Auto) % Immature Gran # (Auto) (0.00-0.02) K/uL Neut # (Auto) (1.4-6.5) K/uL Lymph # (Auto) (1.2-3.4) K/uL Bladen # (Auto) (0.11-0.59) K/uL Eos # (Auto) (0-0.5) K/uL Baso # (Auto) (0-0.2) K/uL PT (9.0-12.0) Seconds INR (0.9-1.1) APTT (21.0-31.0) Seconds PTT Ratio D-Dimer 1580 H* (0-500) ug/L FEU ABG pH (7.35-7.45) ABG pCO2 (35-46) mmHg ABG pO2 (80-95) mm/Hg ABG HCO3 (19-24) mmol/L ABG O2 Saturation (90-95) % ABG Base Excess (-9-1.8) mEq/L Richard Test (Pos) Barometric Pressure mm/Hg Oxygen Given Sodium (136-145) mmol/L Potassium (3.5-5.1) mmol/L Chloride (98-107) mmol/L Carbon Dioxide (21-32) mmol/L Anion Gap (3-11) BUN (7-18) mg/dl Creatinine (0.6-1.2) mg/dl Est Cr Clr Drug Dosing ml/min Est GFR ( Amer) Est GFR (Non-Af Amer) BUN/Creatinine Ratio (10-20) Glucose (70-99) mg/dl Lactate (0.4-2.0) mmol/L Calcium (8.5-10.1) mg/dl Magnesium (1.8-2.4) mg/dl Total Bilirubin (0.2-1) mg/dl AST (15-37) U/L ALT (12-78) U/L Alkaline Phosphatase (45-117) U/L Ammonia 25.4 (11-32) umol/L Troponin I (0-0.045) ng/ml NT-Pro-B Natriuret Pep (0-900) pg/ml Total Protein (6.4-8.2) gm/dl Albumin (3.4-5.0) gm/dl Globulin (2.5-4.0) gm/dl Albumin/Globulin Ratio (0.9-2) Procalcitonin (0-0.5) ng/ml TSH (0.300-4.500) uIu/ml Urine Color Yellow Urine Appearance Clear (Clear) Urine pH 5.0 (4.5-7.5) Ur Specific Clover 1.020 (1.000-1.030) Urine Protein 3+ H (Negative) Urine Glucose (UA) Negative (Negative) Urine Ketones Negative (Negative) Urine Blood 3+ H (Negative) Urine Nitrite Negative (Negative) Urine Bilirubin Negative (Negative) Urine Urobilinogen Negative (Negative) Ur Leukocyte Esterase Negative (Negative) Urine WBC (Auto) 1-5 (0-5) /hpf Urine RBC (Auto) >30 H (0-4) /hpf U Hyaline Cast (Auto) 1-5 (0-5) /lpf U Epithel Cells (Auto) 5-10 H (0-5) /lpf Urine Bacteria (Auto) Negative (Negative) 08/21/18 Range/Units 21:59 WBC (4.8-10.8) K/uL RBC (4.2-5.4) M/uL Hgb (12.0-16.0) g/dL Hct (37-47) % MCV (80-100) fL MCH (25-34) pg MCHC (32-36) g/dL RDW Std Deviation (36.4-46.3) fL RDW Coeff of Bhavin (11.5-14.5) % Plt Count (130-400) K/uL MPV (7.4-10.4) fL Immature Gran % (Auto) % Neut % (Auto) % Lymph % (Auto) % Bladen % (Auto) % Eos % (Auto) % Baso % (Auto) % Immature Gran # (Auto) (0.00-0.02) K/uL Neut # (Auto) (1.4-6.5) K/uL Lymph # (Auto) (1.2-3.4) K/uL Bladen # (Auto) (0.11-0.59) K/uL Eos # (Auto) (0-0.5) K/uL Baso # (Auto) (0-0.2) K/uL PT (9.0-12.0) Seconds INR (0.9-1.1) APTT (21.0-31.0) Seconds PTT Ratio D-Dimer (0-500) ug/L FEU ABG pH 7.30 L (7.35-7.45) ABG pCO2 49 H (35-46) mmHg ABG pO2 65 L (80-95) mm/Hg ABG HCO3 24 (19-24) mmol/L ABG O2 Saturation 91.1 (90-95) % ABG Base Excess -3.2 (-9-1.8) mEq/L Richard Test Pos (Pos) Barometric Pressure 732.4 mm/Hg Oxygen Given [id number] Sodium (136-145) mmol/L Potassium (3.5-5.1) mmol/L Chloride (98-107) mmol/L Carbon Dioxide (21-32) mmol/L Anion Gap (3-11) BUN (7-18) mg/dl Creatinine (0.6-1.2) mg/dl Est Cr Clr Drug Dosing ml/min Est GFR ( Amer) Est GFR (Non-Af Amer) BUN/Creatinine Ratio (10-20) Glucose (70-99) mg/dl Lactate (0.4-2.0) mmol/L Calcium (8.5-10.1) mg/dl Magnesium (1.8-2.4) mg/dl Total Bilirubin (0.2-1) mg/dl AST (15-37) U/L ALT (12-78) U/L Alkaline Phosphatase (45-117) U/L Ammonia (11-32) umol/L Troponin I (0-0.045) ng/ml NT-Pro-B Natriuret Pep (0-900) pg/ml Total Protein (6.4-8.2) gm/dl Albumin (3.4-5.0) gm/dl Globulin (2.5-4.0) gm/dl Albumin/Globulin Ratio (0.9-2) Procalcitonin (0-0.5) ng/ml TSH (0.300-4.500) uIu/ml Urine Color Urine Appearance (Clear) Urine pH (4.5-7.5) Ur Specific Clover (1.000-1.030) Urine Protein (Negative) Urine Glucose (UA) (Negative) Urine Ketones (Negative) Urine Blood (Negative) Urine Nitrite (Negative) Urine Bilirubin (Negative) Urine Urobilinogen (Negative) Ur Leukocyte Esterase (Negative) Urine WBC (Auto) (0-5) /hpf Urine RBC (Auto) (0-4) /hpf U Hyaline Cast (Auto) (0-5) /lpf U Epithel Cells (Auto) (0-5) /lpf Urine Bacteria (Auto) (Negative) Imaging Data Radiologist's Impression: Radiology results as stated below per my review and the radiologist's interpretation: CT head/brain wo con CLINICAL HISTORY: 72 years-old Female with confusion. Acutely altered mental status TECHNIQUE: Multiple axial CT images of the head were obtained without contrast. A dose lowering technique was utilized adhering to the principles of ALARA. CT DOSE: 614.27 mGy.cm COMPARISON: CT head 11/18/2017. FINDINGS: No acute intracranial hemorrhage, midline shift, intracranial mass, hydrocephalus, territorial ischemia or abnormal extra-axial collection. Mild age-related involutional changes. Patchy white matter hypodensities are suggestive of underlying chronic microvascular ischemic disease. The calvarium is intact. Mild left and moderate right mucoperiosteal thickening of the maxillary sinuses. Mastoid air cells are clear on the left. Trace right mastoid effusion. Prior bilateral cataract repair. The soft tissues are unremarkable. IMPRESSION: No acute intracranial abnormality. The above report was generated using voice recognition software. It may contain grammatical, syntax or spelling errors. Electronically signed by: Arnoldo Stiles M.D. 08/21/2018 10:23 PM XR chest 1V portable HISTORY: 72 years-old Female Sepsis acute sepsis COMPARISON: Chest radiograph 11/18/2017 TECHNIQUE: Portable AP view of the chest FINDINGS: Cardiac silhouette is enlarged, unchanged. Vascular congestion with mild interstitial coarsening. No pneumothorax. Suggestion of trace pleural effusions with subsegmental bibasilar opacities. Inferior left costophrenic angle is excluded from the [id number]. Degenerative changes of the shoulders and spine. IMPRESSION: 1. Cardiomegaly with suggestion of mild pulmonary edema. 2. Probable trace pleural effusions with bibasilar opacities suggestive of at electasis or pneumonitis. The above report was generated using voice recognition software. It may contain grammatical, syntax or spelling errors. Electronically signed by: Arnoldo Stiles M.D. 08/21/2018 9:45 PM ECG Data Attestation: I personally reviewed and interpreted this ECG as follows: Indication: toxicologic Rate (beats per minute): 80 Rhythm: sinus rhythm Findings: + other (LBBB) and + PAC; no ST elevation Blood Pressure Blood Pressure Findings: Elevated blood pressure Blood Pressure Disposition: further management by hospitalist [facility] Narrative There is a moderate leukocytosis, this could be consistent with infection or the stress of her situation. No concerning anemia. No coagulopathy. ABG shows a mild amount of respiratory acidosis. CO2 was elevated at 49. Renal panel testing shows a slightly elevated creatinine of 1.4, this could be consistent with some dehydration. Today's creatinine value is slightly higher than her baseline. Lactic acid level was not elevated making severe sepsis less likely. Alk phos was slightly elevated, bilirubin was normal. The patient appeared to be in a euthyroid state. Procalcitonin level was normal. Urinalysis did not show infection, some blood was seen. Chest x-ray showed possible early CHF versus bilateral lower lobe pneumonia and poor inspiration. There was no pneumothorax. Cardiac troponin was slightly elevated, this is consistent with cardiac injury or strain. EKG showed a sinus rhythm, no acute ischemia. BNP was somewhat elevated, consistent with fluid overload. Blood cultures are pending. The patient received IV cefepime as broad-spectrum antibiotic coverage. She was placed on BiPAP because of her hypoxia and respiratory acidosis. She received a small amount of IV saline as a bolus. The patient is somnolent, sleepy, confused. Clinically, she seems dehydrated yet, her chest film and BNP value suggest fluid overload. Chest film is also concerning for potential pneumonia. There is elevation to the cardiac troponin, this may be mismatch as her EKG does not show acute ischemia. The patient requires a hospital stay. I spoke to the , I spoke with case management. The on-call hospitalist was consulted. Further care and work-up is warranted. The true cause for presentation is not yet clear. Impression & Plan Hypoxia, Weakness, Change in mental status, PNA (pneumonia), Elevated troponin Critical Care Time Critical Care Time: Yes Total Critical Care Time: 35 I have personally spent 35 minutes of critical care time in the direct management of this patient. This includes bedside care, interpretation of diagnostic studies, and testing, discussion with consultants, patient, and [employer] members, and other required patient management activities. This 35 minutes is in excess of all separately billable procedures. Discharge Plan Visit Data *Final* Discharge Date/Time: 08/22/18 00:23 Chief Complaint: Illness Stated Complaint: AMS ED Provider: Deep Salazar Discharge Problem: Hypoxia, Weakness, Change in mental status, PNA (pneumonia), Elevated troponin Patient Disposition: Admitted As Inpatient Discharge Instructions Interventions: ED Discharge Assessment Last Done: 08/22/18 00:23 Discharge Problem: Change in mental status Qualifiers: Altered mental status type: unspecified Qualified Code(s): R41.82 - Altered mental status, unspecified PNA (pneumonia) Qualifiers: Pneumonia type: due to unspecified organism Laterality: bilateral Lung location: lower lobe of lung Qualified Code(s): J18.1 - Lobar pneumonia, uns pecified organism The scribe's documentation has been prepared under my direction and personally reviewed by me in its entirety. I confirm that the note above accurately reflects all work, treatment, procedures, and medical decision making performed by me.
--- NOTE | 2018-08-21 23:30 | History & Physical Report ---
Date of Service August 21, 2018 Assessment & Plan (1) Encephalopathy: Multifactorial acute hypoxemic, hypercapnic respiratory failure acute/subacute CHF (progressive weight gain of 5 kg over the last month/10 kg from 12/2017 on review of outpatient documented weights; possibly from uncontrol led blood pressure, ? ability to take home BP meds/wear nighttime CPAP for RENÉ possibly from recent addition of as needed meclizine to [id number] meclizine for worsening vertigo symptoms from Mnire's disease); possible aspiration pneumonitis (no overt sepsis), rule out recurrent PE Home neuropsychotropic medications Troponin elevation secondary to uncontrolled BP, CHF rheumatoid arthritis Parkinson's disease as per records DM 2, on oral meds, well controlled as of recent outpatient hemoglobin A1c of 5.3 last September 2017 anxiety/ mood disorder CRI (baseline creatinine 1.3),, creatinine at baseline past tobacco abuse. PCU Continue BiPAP ABG Diuretic Rx CT chest PE study, LE venous Dopplers for PE DVT work-up Unasyn, nebs, steroid dose, aspiration precautions for possible aspiration pneumonitis causing hypoxemia Facilitate home BP meds, initiate beta-lucho in a.m. Trend troponin TTE, Cardiology consult RE CHF Strict I/Os, daily weights, CHF education Hold anti-vertigo medications, home neuropsychotropics for sedation/confusion Consider MRI brain with contrast, Neurology eval if patient still complaining of worsening vertigo symptoms once more awake. ISS BG goal 1 40-1 80, may need basal insulin, patient due for hemoglobin A1c recheck PT OT eval DVT prophylaxis. Heparin subcu Full code Patient's requesting updates from providers Mr. Wesley Hassan, contact #[phone]. Total critical care time was 45 minutes. History of Present Illness Chief Complaint: Not acting right, abnormal breathing as per Primary Care Provider: Marcella Mondragon MD History obtained from patient, family, and records. Limited history from patient secondary to hearing impairment and disorientation. Medical history significant for hypertension, hyperlipidemia, RENÉ on CPAP, history PE status post anticoagulation, rheumatoid arthritis, Parkinson's disease, Mnire's disease, anxiety/ mood disorder, DM 2 on oral meds, CRI (baseline creatinine 1.3), past tobacco abuse. Recent confinement November 2017 for multifactorial weakness. Patient seen at PCPs office about 3 weeks ago for pounding headache, and dizzy spells described as vertigo-like. Increased bilateral leg swelling for 1 month as per outpatient note. Meclizine as needed added to patient's twice daily Betahistine. Patient does not think patient taking a lot of as needed meclizine. Outpatient ENT/balance center evaluation contemplated. [place] [facility] [place] for hearing issues and other concerns. The last few days, patient's noted some change in behavior, patient more confused than usual. Not wearing her BiPAP at night which is unusual as per . Patient not sure if patient able to take home meds. Some junky cough symptoms noted. Patient noted to be more sleepy today. Breathing somewhat labored. Increase bilateral leg swelling the last few weeks, hx recent outpatient left knee joint aspiration as per . At the ER, patient noted to be hypoxemic. NSS, IV Cefepime given at the ER. BiPAP initiated at the ER. 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, lives with Allergies Allergy/AdvReac Type Severity Reaction Status Date / Time No Known Allergies Allergy Verified 08/21/18 23:03 Home Medications Home Medications Medication Instructions Recorded Confirmed Type Betahistine Hydrochloride 16 mg PO BID 11/18/17 08/21/18 History aspirin 81 mg PO DAILY 11/18/17 08/21/18 History pravastatin [Pravachol] 40 mg PO DAILY 11/18/17 08/21/18 History sulfasalazine 1,000 mg PO BID 11/18/17 08/21/18 History amlodipine 5 mg PO DAILY 08/21/18 08/21/18 History carbidopa-levodopa 1 tab PO TID 08/21/18 08/21/18 History cyanocobalamin (vitamin B-12) 1,000 mcg PO DAILY 08/21/18 08/21/18 History [Vitamin B-12] levothyroxine 125 mcg PO QAM 08/21/18 08/21/18 History lisinopril 10 mg PO DAILY 08/21/18 08/21/18 History meclizine 25 mg PO TID PRN 08/21/18 08/21/18 History melatonin 10 mg PO HS 08/21/18 08/21/18 History metformin 500 mg PO DAILY 08/21/18 08/21/18 History oxybutynin chloride 5 mg PO DAILY 08/21/18 08/21/18 History pregabalin [Lyrica] 200 mg PO BID 08/21/18 08/21/18 History ropinirole 4 mg PO HS 08/21/18 08/21/18 History terazosin 10 mg PO DIRECTED 08/21/18 08/21/18 History venlafaxine 150 mg PO DAILY 08/21/18 08/21/18 History Past Med/Surg History Medical History CKD (chronic kidney disease), stage III DM type 2 (diabetes mellitus, type 2) Depression Diabetes mellitus, type II Dyslipidemia Generalized anxiety disorder HTN (hypertension) Hypothyroidism Meniere's disease RENÉ on CPAP Restless leg syndrome Rheumatoid arthritis Surgical History H/O sinus surgery History of carpal tunnel surgery History of tubal ligation Hx of total knee arthroplasty "Left, Dr. 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 Beliefs That Will Affect Care: None marital status: Current Living Situation: Spouse Other Information That Helps Us Care for You: No Feels Safe at Home: Yes Safety Concerns: Feels Safe At This Time Smoking Status: Never smoker Tobacco Type: cigarettes Cigarettes Per Day: 0.25ppd Hx Alcohol Use: No Hx Substance Use: No Review of Systems Review of Systems: Could not be reliably obtained Physical Exam Physical Exam: GENERAL: Lethargic, hard of hearing, obese, no respiratory distress SKIN: Normal color, warm HEENT: [place] palpebral conjunctivae, no ptosis, dry buccal mucosa, BiPAP in place NECK : Supple, short, no tenderness CHEST : Bibasilar crackles, no tenderness HEART : RRR, systolic murmur ABDOMEN: Some distention, nontender EXTREMITIES : Bilateral LE swelling, no LE tenderness, no other conspicuous deformities noted NEUROLOGIC : Lethargic, hard of hearing, no facial asymmetry, gait and stance not assessed Results & Data Vital Signs (Past 12 Hours) Vital Signs Temp Pulse Resp BP Pulse Ox 08/21/18 23:21 71 18 91 08/21/18 22:31 73 16 182/78 H 92 08/21/18 22:30 75 17 92 08/21/18 22:21 81 17 91 08/21/18 22:20 83 16 200/79 H 91 08/21/18 22:16 95 08/21/18 22:02 83 17 196/79 H 90 08/21/18 22:00 83 19 91 08/21/18 21:50 91 H 19 91 08/21/18 21:46 89 18 167/105 H 91 08/21/18 21:40 90 19 93 08/21/18 21:35 79 18 96 08/21/18 21:31 78 17 190/88 H 99 08/21/18 21:30 72 16 98 08/21/18 21:21 78 16 162/77 H 99 08/21/18 21:20 79 17 08/21/18 21:14 82 20 99 08/21/18 21:12 98 08/21/18 21:08 36.9 C 85 20 201/97 H 98 Laboratory Results Laboratory Results WBC 14.55 K/uL (4.8-10.8) H 08/21/18 21:17 RBC 4.49 M/uL (4.2-5.4) 08/21/18 21:17 Hgb 12.3 g/dL (12.0-16.0) 08/21/18 21:17 Hct 39.3 % (37-47) 08/21/18 21:17 MCV 87.5 fL (80-100) 08/21/18 21:17 MCH 27.4 pg (25-34) 08/21/18 21:17 MCHC 31.3 g/dL (32-36) L 08/21/18 21:17 RDW Std Deviation 49.2 fL (36.4-46.3) H 08/21/18 21:17 RDW Coeff of Bhavin 15.4 % (11.5-14.5) H 08/21/18 21:17 Plt Count 237 K/uL (130-400) 08/21/18 21:17 MPV 11.4 fL (7.4-10.4) H 08/21/18 21:17 Immature Gran % (Auto) 0.7 % 08/21/18 21:17 Neut % (Auto) 81.3 % 08/21/18 21:17 Lymph % (Auto) 8.7 % 08/21/18 21:17 [place] % (Auto) 8.9 % 08/21/18 21:17 Eos % (Auto) 0.1 % 08/21/18 21:17 Baso % (Auto) 0.3 % 08/21/18 21:17 Immature Gran # (Auto) 0.10 K/uL (0.00-0.02) H 08/21/18 21:17 Neut # (Auto) 11.85 K/uL (1.4-6.5) H 08/21/18 21:17 Lymph # (Auto) 1.26 K/uL (1.2-3.4) 08/21/18 21:17 [place] # (Auto) 1.29 K/uL (0.11-0.59) H 08/21/18 21:17 Eos # (Auto) 0.01 K/uL (0-0.5) 08/21/18 21:17 Baso # (Auto) 0.04 K/uL (0-0.2) 08/21/18 21:17 PT 10.0 Seconds (9.0-12.0) 08/21/18 21:17 INR 1.0 (0.9-1.1) 08/21/18 21:17 APTT 29.7 Seconds (21.0-31.0) 08/21/18 21:17 PTT Ratio 1.1 08/21/18 21:17 ABG pH 7.30 (7.35-7.45) L 08/21/18 21:59 ABG pCO2 49 mmHg (35-46) H 08/21/18 21:59 ABG pO2 65 mm/Hg (80-95) L 08/21/18 21:59 ABG HCO3 24 mmol/L (19-24) 08/21/18 21:59 ABG O2 Saturation 91.1 % (90-95) 08/21/18 21:59 ABG Base Excess -3.2 mEq/L (-9-1.8) 08/21/18 21:59 Richard Test Pos (Pos) 08/21/18 21:59 Barometric Pressure 732.4 mm/Hg 08/21/18 21:59 Oxygen Given [id number] 08/21/18 21:59 Sodium 142 mmol/L (136-145) 08/21/18 21:17 Potassium 4.1 mmol/L (3.5-5.1) 08/21/18 21:17 Chloride 109 mmol/L (98-107) H 08/21/18 21:17 Carbon Dioxide 27 mmol/L (21-32) 08/21/18 21:17 Anion Gap 7.0 (3-11) 08/21/18 21:17 BUN 24 mg/dl (7-18) H 08/21/18 21:17 Creatinine 1.33 mg/dl (0.6-1.2) H 08/21/18 21:17 Est Cr Clr Drug Dosing 45.2 ml/min 08/21/18 21:17 Est GFR ( Amer) 46.5 08/21/18 21:17 Est GFR (Non-Af Amer) 40.1 08/21/18 21:17 BUN/Creatinine Ratio 18.0 (10-20) 08/21/18 21:17 Glucose 109 mg/dl (70-99) H 08/21/18 21:17 Lactate 1.4 mmol/L (0.4-2.0) 08/21/18 21:17 Calcium 9.0 mg/dl (8.5-10.1) 08/21/18 21:17 Magnesium 1.8 mg/dl (1.8-2.4) 08/21/18 21:17 Total Bilirubin 0.4 mg/dl (0.2-1) 08/21/18 21:17 AST 31 U/L (15-37) 08/21/18 21:17 ALT 26 U/L (12-78) 08/21/18 21:17 Alkaline Phosphatase 128 U/L (45-117) H 08/21/18 21:17 Ammonia 25.4 umol/L (11-32) 08/21/18 21:59 Troponin I 0.601 ng/ml (0-0.045) H* 08/21/18 21:17 NT-Pro-B Natriuret Pep 4212 pg/ml (0-900) H 08/21/18 21:17 Total Protein 8.4 gm/dl (6.4-8.2) H 08/21/18 21:17 Albumin 3.7 gm/dl (3.4-5.0) 08/21/18 21:17 Globulin 4.7 gm/dl (2.5-4.0) H 08/21/18 21:17 Albumin/Globulin Ratio 0.8 (0.9-2) L 08/21/18 21:17 Procalcitonin < 0.05 ng/ml (0-0.5) 08/21/18 21:17 Urine Color Yellow 08/21/18 21:40 Urine Appearance Clear (Clear) 08/21/18 21:40 Urine pH 5.0 (4.5-7.5) 08/21/18 21:40 Ur Specific [place] 1.020 (1.000-1.030) 08/21/18 21:40 Urine Protein 3+ (Negative) H 08/21/18 21:40 Urine Glucose (UA) Negative (Negative) 08/21/18 21:40 Urine Ketones Negative (Negative) 08/21/18 21:40 Urine Blood 3+ (Negative) H 08/21/18 21:40 Urine Nitrite Negative (Negative) 08/21/18 21:40 Urine Bilirubin Negative (Negative) 08/21/18 21:40 Urine Urobilinogen Negative (Negative) 08/21/18 21:40 Ur Leukocyte Esterase Negative (Negative) 08/21/18 21:40 Urine WBC (Auto) 1-5 /hpf (0-5) 08/21/18 21:40 Urine RBC (Auto) >30 /hpf (0-4) H 08/21/18 21:40 U Hyaline Cast (Auto) 1-5 /lpf (0-5) 08/21/18 21:40 U Epithel Cells (Auto) 5-10 /lpf (0-5) H 08/21/18 21:40 Urine Bacteria (Auto) Negative (Negative) 08/21/18 21:[address] head: No acute pathology Chest x-ray showed 1. Cardiomegaly with suggestion of mild pulmonary edema. 2. Probable trace pleural effusions with bibasilar opacities suggestive of atelectasis or pneumonitis. EKG as per my interpretation : Rate 80, NSR, no ischemia, PVCs
[2018-08-21] MEDS ORDERED: FUROSEMIDE 40 MG in SYRINGE 0 ML IV ONE (23:34)
[2018-08-21] MEDS ORDERED: FUROSEMIDE 40 MG/4 ML VIAL IV STA (23:37)
[2018-08-21 23:39] LABS: D Dimer 1580 ug/L FEU (0-500)
[2018-08-21] MEDS ORDERED: TRAMADOL HCL 50 MG TABLET PO PRN (23:41)
[2018-08-21] MEDS ORDERED: ALBUT/IPRATROP 3MG/0.5MG NEB 3 ML VIAL NEB STA (23:41)
[2018-08-22] MEDS ORDERED: HydrALAZINE HCL 20 MG/ML VIAL ONE (00:02)
[2018-08-22 00:13] LABS: HCO3 ABG 25 mmol/L (19-24); Oxygen Saturation ABG 96.9 % (90-95); PCO2 ABG 55 mmHg (35-46); PO2 ABG 107 mm/Hg (80-95); pH ABG 7.27 (7.35-7.45)
[2018-08-22 00:14] LABS: Allen Test Pos (Pos)
[2018-08-22] MEDS ORDERED: MAGNESIUM SULFATE / D5W 1 GM/100 ML BAG IV ONE (00:29)
[2018-08-22] MEDS ORDERED: OPTIRAY 320 125ml IV PRN (00:58)
[2018-08-22] MEDS ORDERED: GLUCAGON FOR INJ 1 MG VIAL SQ PRN (01:03)
[2018-08-22] MEDS ORDERED: PROMETHAZINE HCL 12.5 MG in SODIUM CHLORIDE 0.9% 50 ML IV PRN (01:03)
[2018-08-22] MEDS ORDERED: MECLIZINE HCL 25 MG TAB PO PRN (01:03)
[2018-08-22] MEDS ORDERED: CARBOHYDRATES FOR HYPOGLYCEMIA PO PRN (01:03)
[2018-08-22] MEDS ORDERED: NITROGLYCERIN SL 0.4 MG/TAB TAB SL PRN (01:03)
[2018-08-22] MEDS ORDERED: ACETAMINOPHEN 325 MG TAB PO PRN (01:03)
[2018-08-22] MEDS ORDERED: GLUCOSE 10 TABS/TUBE PO PRN (01:03)
[2018-08-22] MEDS ORDERED: GLUCOSE 40% GEL 15 GM TUBE PO PRN (01:03)
[2018-08-22] MEDS ORDERED: DEXTROSE 50% 50 ML SYRINGE IV PRN (01:03)
[2018-08-22 01:12] LABS: Calcium 8.8 mg/dl (8.5-10.1); Creatinine Clr Calc Pharmacy 42.9 ml/min; Est GFR (African American) 43.7; Est GFR (Non-African American) 37.7; Potassium 4.1 mmol/L (3.5-5.1)
[2018-08-22] MEDS ORDERED: INSULIN GLARGINE SOLOSTAR 100 UNITS/ML 3 ML PEN SQ STA (01:23)
[2018-08-22] MEDS ORDERED: PIPERACILL/TAZOBAC CONSULT ACTIVE PRN (01:25)
[2018-08-22] MEDS ORDERED: PIPERACILLIN/TAZOBACTAM 4.5 GM in DEXTROSE 5% 100 ML IV ONE (01:30)
[2018-08-22] MEDS ORDERED: methylPREDNISolone 20 MG in SYRINGE 0 ML IV ONE (01:45)
[2018-08-22] MEDS: INSULIN ASPART 100 UNITS/ML 3 ML PEN SC SCH ×5 (01:56→20:49)
[2018-08-22 03:18] LABS: HCO3 ABG 25 mmol/L (19-24); PCO2 ABG 53 mmHg (35-46); PO2 ABG 67 mm/Hg (80-95); pH ABG 7.29 (7.35-7.45)
[2018-08-22 03:21] LABS: Basophils # (auto) 0.07 K/uL (0-0.2); Basophils % (auto) 0.5 %; Hematocrit (blood only) 35.7 % (37-47); Hemoglobin 11.4 g/dL (12.0-16.0); Immature Granulocytes # (auto) 0.06 K/uL (0.00-0.02); Immature Granulocytes % (auto) 0.5 %; Lymphocytes # (auto) 1.24 K/uL (1.2-3.4); Lymphocytes % (auto) 9.6 %; Mean Corpuscular Hgb Conc 31.9 g/dL (32-36); Mean Corpuscular Volume 87.1 fL (80-100); Mean Platelet Volume 10.9 fL (7.4-10.4); Monocytes # (auto) 1.32 K/uL (0.11-0.59); Monocytes % (auto) 10.2 %; Neutrophils # (auto) 10.26 K/uL (1.4-6.5); Neutrophils % (auto) 79.2 %; Platelet Count 232 K/uL (130-400); RDW Coefficient of Variation 15.3 % (11.5-14.5); White Blood Count 12.95 K/uL (4.8-10.8)
[2018-08-22 03:23] LABS: Allen Test Pos (Pos)
[2018-08-22 03:30] LABS: Partial Thromboplastin Ratio 1.1; Partial Thromboplastin Time 30.3 Seconds (21.0-31.0)
[2018-08-22 03:40] LABS: BUN Creatinine Ratio 18.5 (10-20); Calcium 8.3 mg/dl (8.5-10.1); Creatinine Clr Calc Pharmacy 49.2 ml/min; Est GFR (African American) 49.2; Est GFR (Non-African American) 42.4
[2018-08-22 03:50] LABS: Troponin I 1.24 ng/ml (0-0.045)
[2018-08-22] MEDS ORDERED: METOPROLOL TARTRATE 1 MG/ML VIAL IV STA (03:53)
[2018-08-22] MEDS ORDERED: XOPENEX/ATROVENT 1.25mg/0.5MG NEB COMBO NEB STA (04:10)
[2018-08-22] MEDS ORDERED: FUROSEMIDE 40 MG in SYRINGE 0 ML IV ONE ×3 (04:15→17:00)
[2018-08-22] MEDS ORDERED: IPRATROPIUM BROMIDE NEB SOLN 0.02% 2.5 ML VIAL INH STA (04:15)
[2018-08-22] MEDS ORDERED: LEVALBUTEROL 1.25MG/0.5ML NEB INH STA (04:15)
--- NOTE | 2018-08-22 04:18 | Hospitalist Progress Note ---
Date of Service August 22, 2018 Assessment & Plan (1) Respiratory failure with hypoxia and hypercapnia: Worsening clinical status on NIPPV Secondary to CHF, aspiration pneumonitis ? Possible ACS ICU transfer Adjust BiPAP settings, recheck ABG Additional Lasix Continue Unasyn Aspirin per rectum as patient unable to swallow for now; beta-lucho as per initial plan; IV heparin for possible ACS Patient may require endotracheal intubation to facilitate mechanical ventilation if without clinical improvement following above intervention. Attempted to contact patient's over the phone to provide update. No answer. Message left on phone machine Total critical time was 35 minutes. 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 Physical Exam Physical Exam: GENERAL: Obtunded , respiratory distress, obese SKIN: Normal color, warm HEENT: [place] palpebral conjunctivae, no ptosis, dry buccal mucosa, BiPAP in place NECK : Supple, short, no tenderness CHEST : Expiratory wheezes , no tenderness HEART : RRR, no obvious murmurs ABDOMEN: Some distention, nontender EXTREMITIES : jerson LE swelling, no LE tenderness, no other conspicuous deformities noted NEUROLOGIC : Obtunded , no facial asymmetry, no other gross focality Results & Data Vital Signs (Past 12 Hours) Vital Signs Temp Pulse Pulse Resp BP BP Pulse Ox 08/22/18 03:01 36.6 C 82 16 167/65 H 94 08/22/18 01:32 74 22 74 L 08/22/18 01:07 74 08/22/18 01:03 36.4 C L 76 22 162/86 H 97 08/22/18 00:23 98 H 20 167/60 H 94 08/22/18 00:05 72 17 95 08/21/18 23:49 72 22 150/72 H 94 08/21/18 23:46 74 16 147/57 H 93 08/21/18 23:31 80 20 172/74 H 94 08/21/18 23:30 82 17 93 08/21/18 23:21 71 18 91 08/21/18 23:16 76 17 139/68 93 08/21/18 23:01 88 19 147/86 H 90 08/21/18 23:00 80 18 91 08/21/18 22:46 76 18 175/72 H 90 08/21/18 22:31 73 16 182/78 H 92 08/21/18 22:30 75 17 92 08/21/18 22:21 81 17 91 08/21/18 22:20 83 16 200/79 H 91 08/21/18 22:16 95 08/21/18 22:02 83 17 196/79 H 90 08/21/18 22:00 83 19 91 08/21/18 21:50 91 H 19 91 08/21/18 21:46 89 18 167/105 H 91 08/21/18 21:40 90 19 93 08/21/18 21:35 79 18 96 08/21/18 21:31 78 17 190/88 H 99 08/21/18 21:30 72 16 98 08/21/18 21:21 78 16 162/77 H 99 08/21/18 21:20 79 17 08/21/18 21:14 82 20 99 08/21/18 21:12 98 08/21/18 21:08 36.9 C 85 20 201/97 H 98 Laboratory Results Chest x-ray as per my interpretation congestion EKG as per my interpretation : Rate 70, NSR, no ischemia troponin 1.2 (from 0.936)
[2018-08-22] MEDS ORDERED: ICU PROTOCOL FOR HYPERGLYCEMIA PRN (04:33)
[2018-08-22] MEDS ORDERED: Heparin IV Standard *NO* Bolus IV SCH (04:45)
[2018-08-22] MEDS ORDERED: AMPICILLIN/SULBACTAM CONSULT ACTIVE PRN (04:48)
[2018-08-22] MEDS ORDERED: ASPIRIN 300 MG SUPP PR ONE (05:00)
[2018-08-22] MEDS: AMPICILLIN/SULBACTAM SOD 3,000 MG in 0.9 % SODIUM CHLORIDE 100 ML IV SCH ×3 (05:06→17:08)
[2018-08-22] MEDS: Heparin Adult STANDARD Wt-Based Dextrose 5% 25,000 units/500 mL IV SCH ×2 (05:21→22:25)
[2018-08-22 05:22] LABS: Albumin Level 3.7 gm/dl (3.4-5.0)
[2018-08-22] MEDS: LEVOTHYROXINE SODIUM 125 MCG TABLET PO SCH (05:24)
[2018-08-22] MEDS ORDERED: CALCIUM GLUCONATE 10% 1,000 MG in SODIUM CHLORIDE 0.9% 50 ML IV ONE (05:30)
--- NOTE | 2018-08-22 05:42 | Critical Care Consultation ---
Date of Consultation August 22, 2018 Assessment & Plan (1) NSTEMI (non-ST elevated myocardial infarction): Reason Critically Ill: Acute hypoxemic respiratory failure with altered mental status Neuro - Acute encephalopathy: Has been altered for several days per . Has mostly just mumbled and said that she wanted to go back to sleep when he would talk to her. Today as she became more alert she was oriented to person but not situation Likely secondary to encephalopathy from her hypercapnic respiratory acidosis Became less somnolent and more alert as day went along. Important to note patient is very hard of hearing -Hold Lyrica in the setting of mild SAM, could contribute to altered mental status -Hold Requip -Hold Ultram Parkinsonism: Continue carbidopa levodopa Cardiac - NSTEMI: Elevated troponins after presentation, will continue to trend Echo performed earlier today showing preserved EF and no major wall motion abnormalities -Mildly elevated troponin I History CHF -Hypertension: 157/78 increase metoprolol from 12.5 to 25 mg twice daily this evening Respiratory - Hypercapnic respiratory failure: Resolved GI - Heart healthy diet with fluid restriction of 1800 mL's diet RENAL/LYTES - Repeat BMP pending Elevated creatinine, appears to be roughly near baseline Replace lytes as needed. - Discontinue Kirby per nursing protocol ENDO - Blood sugars within normal limits -Continue Synthroid HEME - On heparin for elevated troponins we will continue at this time likely discontinue soon ID - On Unasyn for aspiration pneumonia coverage -We will discontinue, no oxygen requirement, no evidence of pneumonitis. LINES/IV ACCESS - PIVs intact. DVT PROPHYLAXIS - Heparin gtt. (2) Respiratory failure with hypoxia and hypercapnia: (3) Encephalopathy: (4) Weakness: (5) Change in mental status: (6) PNA (pneumonia): (7) Elevated troponin: (8) History of orthopedic surgery: Supervising Physician Co-Signing Physician Notes Dr. Hawkins was resident physician during care of patient. I separately evaluated patient for nicole portions of the history and the exam. I was present during the critical portion of medical decision making, and I discussed the case with the resident. I generally agree with the findings and plan. During my examination the patient was alert able to follow complex commands. We removed the noninvasive ventilator and patient was saturating 97% on room air. Patient has a large volume diuresis of approximately 5 L. She is still somewhat hypertensive 166/78, I have increased her beta-lucho. Patient's acute hypoxic respiratory failure appears to have resolved. Her acute encephalopathy was most likely exacerbated by the hypercarbic respiratory failure that has since improved and the patient seems to be more interactive per nursing staff. Patient's critical care needs have resolved and would be stable for downgrade to telemetry status. History of Present Illness Reason for Consultation: Acute Hypoxemic Respiratory Failure Attending Physician: Leanne Barr History of Present Illness Kami Hassan is a 72 year old female with a past medical history significant for HTN, HLD, RENÉ on CPAP, Rheumatoid arthritis, history of PE, Meniere's, Parkinson's Anxiety, DM2 not on insulin, CKD, and tobacco abuse who presents with hypoxemic respiratory failure. Talked to this morning, Ms. Hassan had not been acting quite right for several days, sleeping in, breathing heavier, mumbling more and declining her CPAP. He eventually called an ambulance when she was sleeping until the late afternoon and her work of breathing became too much. Apparently her legs became very swollen as well. Per she has also not been taking her medicine or using her cpap for last several days. Patient was hypoxemic on presentation to the ER to 74% oxygen saturation. NSS and IV cefepime were given in emergency department patient was placed on bipap. Patient with marked weight gain (5kg in last month). All history from as patient was very somnolent this morning. Allergies Allergy/AdvReac Type Severity Reaction Status Date / Time No Known Allergies Allergy Verified 08/21/18 23:03 Home Medications Home Medications Medication Instructions Recorded Confirmed Type Betahistine Hydrochloride 16 mg PO BID 11/18/17 08/21/18 History aspirin 81 mg PO DAILY 11/18/17 08/21/18 History pravastatin [Pravachol] 40 mg PO DAILY 11/18/17 08/21/18 History sulfasalazine 1,000 mg PO BID 11/18/17 08/21/18 History amlodipine 5 mg PO DAILY 08/21/18 08/21/18 History carbidopa-levodopa 1 tab PO TID 08/21/18 08/21/18 History cyanocobalamin (vitamin B-12) 1,000 mcg PO DAILY 08/21/18 08/21/18 History [Vitamin B-12] levothyroxine 125 mcg PO QAM 08/21/18 08/21/18 History lisinopril 10 mg PO DAILY 08/21/18 08/21/18 History meclizine 25 mg PO TID PRN 08/21/18 08/21/18 History melatonin 10 mg PO HS 08/21/18 08/21/18 History metformin 500 mg PO DAILY 08/21/18 08/21/18 History oxybutynin chloride 5 mg PO DAILY 08/21/18 08/21/18 History pregabalin [Lyrica] 200 mg PO BID 08/21/18 08/21/18 History ropinirole 4 mg PO HS 08/21/18 08/21/18 History terazosin 10 mg PO DIRECTED 08/21/18 08/21/18 History venlafaxine 150 mg PO DAILY 08/21/18 08/21/18 History Patient History Medical History CKD (chronic kidney disease), stage III DM type 2 (diabetes mellitus, type 2) Depression Diabetes mellitus, type II Dyslipidemia Generalized anxiety disorder HTN (hypertension) Hypothyroidism Meniere's disease RENÉ on CPAP Restless leg syndrome Rheumatoid arthritis Surgical History H/O sinus surgery History of carpal tunnel surgery History of tubal ligation Hx of total knee arthroplasty "Left, Dr. 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 Beliefs That Will Affect Care: None marital status: Current Living Situation: Spouse Other Information That Helps Us Care for You: No Feels Safe at Home: Yes Safety Concerns: Feels Safe At This Time Smoking Status: Never smoker Tobacco Type: cigarettes Cigarettes Per Day: 0.25ppd Hx Alcohol Use: No Hx Substance Use: No Review of Systems Review of Systems: Unobtainable due to reduced consciousness Physical Exam Constitutional: well nourished, + ill appearing, + morbidly obese, + altered mental status (somnolent), + frail appearing, cooperative and comfortable Eyes: PERRL, conjunctivae normal, anicteric sclerae Respiratory: + labored breathing and + uses accessory muscles; no cough Auscultation: + diminished lung sounds (Right worse than left), + crackles (faint b/l) and + wheezes Cardiovascular: Rate/Rhythm: regular rate and regular rhythm Heart Sounds: normal S1, normal S2 and + murmur; no click, no gallop and no cardiac rub Gastrointestinal (Abdomen): Inspection/Auscultation: abdomen normal to inspection; abdomen not distended Percussion/Palpation: abdomen soft; abdomen nontender Neurologic: PERRL, EOMI, accommodation nl, no face palsy, no dysarthria Results & Data Vital Signs (Past 12 Hours) Vital Signs Temp Pulse Pulse Resp BP BP Pulse Ox 08/22/18 05:10 64 159/68 H 08/22/18 03:01 36.6 C 82 16 167/65 H 94 08/22/18 01:32 74 22 74 L 08/22/18 01:07 74 08/22/18 01:03 36.4 C L 76 22 162/86 H 97 08/22/18 00:23 98 H 20 167/60 H 94 08/22/18 00:05 72 17 95 08/21/18 23:49 72 22 150/72 H 94 08/21/18 23:46 74 16 147/57 H 93 08/21/18 23:31 80 20 172/74 H 94 08/21/18 23:30 82 17 93 08/21/18 23:21 71 18 91 08/21/18 23:16 76 17 139/68 93 08/21/18 23:01 88 19 147/86 H 90 08/21/18 23:00 80 18 91 08/21/18 22:46 76 18 175/72 H 90 08/21/18 22:31 73 16 182/78 H 92 08/21/18 22:30 75 17 92 08/21/18 22:21 81 17 91 08/21/18 22:20 83 16 200/79 H 91 08/21/18 22:16 95 08/21/18 22:02 83 17 196/79 H 90 08/21/18 22:00 83 19 91 08/21/18 21:50 91 H 19 91 08/21/18 21:46 89 18 167/105 H 91 08/21/18 21:40 90 19 93 08/21/18 21:35 79 18 96 08/21/18 21:31 78 17 190/88 H 99 08/21/18 21:30 72 16 98 08/21/18 21:21 78 16 162/77 H 99 08/21/18 21:20 79 17 08/21/18 21:14 82 20 99 08/21/18 21:12 98 08/21/18 21:08 36.9 C 85 20 201/97 H 98 (1) Change in mental status Altered mental status type: unspecified Qualified Code(s): R41.82 - Altered mental status, unspecified (2) PNA (pneumonia) Laterality: bilateral Lung location: lower lobe of lung Pneumonia type: due to unspecified organism Qualified Code(s): J18.1 - Lobar pneumonia, unspecified organism
[2018-08-22 05:59] LABS: iSTAT Allen Test Pass; iSTAT Arterial Blood Gas HCO3 26 meg/L (19-24); iSTAT Arterial Blood Gas pCO2 50 mmHg (35-46); iSTAT Arterial Blood Gas pH 7.33 (7.35-7.45); iSTAT Carbon Dioxide 28 mEq/l (24-31); iSTAT FiO2 35 %; iSTAT Site R Radial
[2018-08-22] MEDS ORDERED: HEPARIN SOD 5,000 UNIT/0.5 ML VIAL SQ SCH (06:00)
[2018-08-22] MEDS ORDERED: PIPERACILLIN/TAZOBACTAM 4.5 GM in DEXTROSE 5% 100 ML IV SCH (06:00)
--- NOTE | 2018-08-22 06:22 | CT Scan Report ---
CT angio chest PE protocol CLINICAL HISTORY: 72 years-old Female presenting with shortness of breath, sepsis, clinical concern f or pulmonary embolus. TECHNIQUE: Multidetector CT angiography of the chest was performed after administration of intravenou s contrast. 3-D volumetric and/or maximum intensity projection (MIP) images were subsequently reconst ructed for review. IV contrast: 101 mL of Optiray 320. One or more dose lowering techniques were used consistent with the principles of ALARA (as low as reasonably achievable), including automatic expos ure control, mA or kV adjustment to individual patient size, and/or use of iterative reconstruction. COMPARISON: 11/18/2017. CT DOSE (mGy.cm): The estimated cumulative dose is 912.23 mGy.cm. FINDINGS: [employer] topogram: Cardiomegaly. Pulmonary vasculature: The study is suboptimal for the assessment of the pulmonary vascular tree secondary to timing of the contrast bolus and respiratory motion artifact. Allowing for limited image quality, no central fillin g defect to suggest pulmonary embolus. Main pulmonary artery is not enlarged. No flattening of the in terventricular septum. No intracardiac filling defect. No reflux of contrast into the hepatic veins. Remaining chest: Soft tissues: Asymmetric infiltration of the right axilla. Normal thyroid. No axillary, supraclavicul ar, mediastinal, or hilar lymphadenopathy. Atherosclerosis of the aorta. Multichamber enlargement of the heart. Coronary artery calcification. Trace pleural effusions. Upper abdomen normal. Lungs and airways: No pneumothorax. Central airways patent allowing for the expiratory phase of respi ration. Enlarged pulmonary arteries relative to adjacent bronchi. Diffuse smooth interlobular septal thickening. Extensive patchy groundglass opacity. Additional dependent consolidation in the lower lob es with left greater than right lower lobe volume loss. Respiratory motion artifact mildly degrades e valuation of lung parenchyma. Musculoskeletal: Degenerative changes of the spine. IMPRESSION: 1. Allowing for suboptimal image quality, no evidence of pulmonary embolus. 2. Cardiomegaly with volume overload, congestive change, and moderate pulmonary edema. 3. Trace bilateral pleural effusions. 4. Asymmetric infiltration of the right axilla. Correlate clinically to exclude cellulitis. Electronically signed by: Nliesh Orellana M.D. 08/22/2018 6:20 AM
[2018-08-22 06:36] LABS: Estimated Average Glucose 114 mg/dl; Hemoglobin A1C 5.6 % (4.5-5.6)
--- NOTE | 2018-08-22 06:36 | Ultrasound Report ---
US venous doppler LE CLINICAL HISTORY: 72 years-old Female presenting with leg swelling. TECHNIQUE: Real-time grayscale and color and spectral Doppler ultrasound imaging of the veins of the bilateral lower extremities was performed. Compression and augmentation were also utilized. COMPARISON: 08/09/2016. FINDINGS: A violation mildly degraded by patient body habitus, which mildly negatively affects diagnostic sensi tivity the exam. RIGHT: Common femoral vein: Patent. Greater saphenous vein (superficial): Patent. Deep femoral vein: Patent. Femoral vein: Patent. Popliteal vein: Patent. Calf veins: Patent. LEFT: Common femoral vein: Patent. Greater saphenous vein (superficial): Patent. Deep femoral vein: Patent. Femoral vein: Patent. Popliteal vein: Patent. Calf veins: Patent. Other: Subcutaneous edema with dilated lymphatics noted in the right popliteal fossa. IMPRESSION: 1. No evidence of deep venous thrombosis. 2. Subcutaneous edema in the right popliteal fossa. Electronically signed by: Nilesh Orellana M.D. 08/22/2018 6:34 AM
--- NOTE | 2018-08-22 07:09 | XRay Report ---
XR chest 1V portable CLINICAL HISTORY: 72 years-old Female presenting with respiratory distress. TECHNIQUE: Portable upright AP view of the chest was obtained. COMPARISON: None. FINDINGS: The patient is FUENTES rotated. Allowing for this, cardiac silhouette moderately enlarged. Atherosclerosi s of the aortic arch. Mild prominence of pulmonary vasculature though this is slightly decreased from prior. Decreased added density of the perihilar and lung bases. Persistent poor aeration of the left lung base, which may in part relate to cardiomegaly. Mild added density of the lungs remains. No lar ge effusion or pneumothorax. Degenerative changes of the spine. IMPRESSION: 1. Cardiomegaly with decreasing volume overload and congestive change. Minimal pulmonary edema remai ns. 2. Perforation of the left lung base may in part relate to cardiomegaly or the presence of left pleu ral effusion and/or atelectasis. Electronically signed by: Nilesh Orellana M.D. 08/22/2018 7:07 AM
[2018-08-22 07:27] LABS: Troponin I 1.32 ng/ml (0-0.045)
[2018-08-22] MEDS ORDERED: XOPENEX/ATROVENT 1.25mg/0.5MG NEB COMBO NEB SCH (08:00)
--- NOTE | 2018-08-22 08:23 | Hospitalist Progress Note ---
Date of Service August 22, 2018 Assessment & Plan (1) Encephalopathy: MULTIFACTORIAL Acute hypoxic, hypercapnic respiratory failure Acute CHF RENÉ possibly from recent addition of as needed meclizine to [id number] meclizine for worsening vertigo symptoms from Mnire's disease); possible aspiration pneumonitis -Opens eyes on command -Hold home neuropsychotropic medications ACUTE HYPOXIC HYPERCAPNIC RESPIRATORY FAILURE Multifactorial CHF exacerbation, Aspiration pneumonitis -US duplex- neg for DVT, subcutaneous edema in right popliteal fossa, CT chest - No PE, Patchy groundglass opacities, dependent consolidation in lower lobes with left >right lower lobe volume loss. CHF EXACERBATION Progressive weight gain of 5 kg over the last month/10 kg from 12/2017 on review of outpatient documented weights; possibly from uncontrolled blood pressure ? ability to take home BP meds/wear nighttime CPAP ) -IV Lasix 40 mg x 1 dose. To re evaluate volume status and accordingly give further doses per cardiology -I/OS, daily weights -CXR- Cardiomegaly with decreasing volume overload and congestive change. Minimal pulmonary edema remains. Poor aeration of left lung base NSTEMI 0.6--> 1.320 -Likely demand ischemia in setting of CHF exacerbation/HTN urgency -High risk for underlying CAD -Continue with aspirin, Metoprolol -Echocardiogram- Bedside in ICU- No wall motion abnormalities noted, Mild LVH -Cardiology on board POSSIBLE ASPIRATION PNEUMONITIS -IV Unasyn- Day 1 -Nebs QID DM2- HBA1C 5.3 -ISS, Accuchecks PARKINSONS DISEASE -Continue with Carbidopa-Levodopa TID RHEUMATOID ARTHRITIS ANXIETY/MOOD DISORDER Effexor 150 mg- Hold CKD III Baseline 1.3 -Monitor on diuretics DVT prophylaxis. Heparin subcutaneous Full code Disposition Continue with ICU monitoring PT/OT ordered Medical mx in progress Patient's requesting updates from providers Mr. Wesley Hassan, contact #[phone]. Updated daughters by bedside Subjective Patient is still on BIPAP. Opens eyes on command but unable to stay awake or have a conversation. Per RN, was able to take PO pills today. Physical Exam Physical Exam: GENERAL- Drowsy, BIPAP + Opens eyes on command, BIPAP +, OBESE + LUNGS- Air entry bilaterally decreased. Crackles + . No rhonchi, crackles, wheezes heard. HEART- Regular rate and rhythm. No murmurs ABDOMEN- Soft, non tender, non distended, Bowel sounds heard. EXTREMITIES- Bilateral edema + Results & Data Vital Signs (Past 12 Hours) Vital Signs Temp Pulse Pulse Resp BP BP Pulse Ox 08/22/18 05:10 64 159/68 H 08/22/18 04:33 37.2 C 68 18 159/68 H 97 08/22/18 04:15 88 19 94 08/22/18 03:01 36.6 C 82 16 167/65 H 94 08/22/18 01:32 74 22 74 L 08/22/18 01:07 74 08/22/18 01:03 36.4 C L 76 22 162/86 H 97 08/22/18 00:23 98 H 20 167/60 H 94 08/22/18 00:05 72 17 95 08/21/18 23:49 72 22 150/72 H 94 08/21/18 23:46 74 16 147/57 H 93 08/21/18 23:31 80 20 172/74 H 94 08/21/18 23:30 82 17 93 08/21/18 23:21 71 18 91 08/21/18 23:16 76 17 139/68 93 08/21/18 23:01 88 19 147/86 H 90 08/21/18 23:00 80 18 91 08/21/18 22:46 76 18 175/72 H 90 08/21/18 22:31 73 16 182/78 H 92 08/21/18 22:30 75 17 92 08/21/18 22:21 81 17 91 08/21/18 22:20 83 16 200/79 H 91 08/21/18 22:16 95 08/21/18 22:02 83 17 196/79 H 90 08/21/18 22:00 83 19 91 08/21/18 21:50 91 H 19 91 08/21/18 21:46 89 18 167/105 H 91 08/21/18 21:40 90 19 93 08/21/18 21:35 79 18 96 08/21/18 21:31 78 17 190/88 H 99 08/21/18 21:30 72 16 98 08/21/18 21:21 78 16 162/77 H 99 08/21/18 21:20 79 17 08/21/18 21:14 82 20 99 08/21/18 21:12 98 08/21/18 21:08 36.9 C 85 20 201/97 H 98
[2018-08-22] MEDS: IPRATROPIUM BROMIDE NEB SOLN 0.02% 2.5 ML VIAL INH SCH ×3 (08:39→22:17)
[2018-08-22] MEDS: LEVALBUTEROL 1.25MG/0.5ML NEB INH SCH ×3 (08:39→22:17)
[2018-08-22] MEDS ORDERED: METOPROLOL TARTRATE 25 MG TAB PO SCH ×2 (09:00→21:00)
[2018-08-22] MEDS ORDERED: ASPIRIN 81 MG ECTAB PO SCH (09:00)
[2018-08-22] MEDS: sulfaSALAzine 500 MG TABLET PO SCH ×2 (09:53→20:57)
[2018-08-22] MEDS: PRAVASTATIN SOD 40 MG TAB PO SCH (09:53)
[2018-08-22] MEDS: ASPIRIN 81 MG ECTAB PO SCH (09:53)
[2018-08-22] MEDS: CYANOCOBALAMIN 500 MCG TABLET (VITAMIN B-12) PO SCH (09:54)
[2018-08-22] MEDS: AMLODIPINE BESYLATE 5 MG TAB PO SCH (09:54)
[2018-08-22] MEDS: CARBIDOPA/LEVODOPA 25/100MG TAB PO SCH ×3 (09:54→20:36)
[2018-08-22] MEDS: VENLAFAXINE HCL XR 150 MG CAPXR PO SCH (09:54)
[2018-08-22] MEDS: PREGABALIN 100 MG CAP PO SCH (09:56)
[2018-08-22 11:39] LABS: Partial Thromboplastin Ratio 1.8
[2018-08-22 11:43] LABS: Partial Thromboplastin Time 48.4 Seconds (21.0-31.0)
--- NOTE | 2018-08-22 13:43 | Cardiology Consultation ---
Date of Consultation August 22, 2018 Assessment & Plan (1) Acute hypoxemic respiratory failure: Patient appears to have presented with a combination of hypoxemic hypercapnic respiratory failure as well as mild volume overload. CT angiogram of the chest was suboptimal, but no evidence of definite pulmonary embolism. Volume overload changes noted on chest CT with moderate pulmonary edema, and trace bilateral pleural effusions. Echocardiogram reveals abnormal septal motion consistent with conduction delay. Patient therefore likely has diastolic heart failure. (2) NSTEMI (non-ST elevated myocardial infarction): The patient has an abnormal troponin, it is up to 1.32 this morning. At this time, it appears that this is a type II event due to underlying hypoxia and increased myocardial demand rather than an acute intracoronary plaque rupture. She does have significant risk factors however for underlying coronary heart disease. Agree with unfractionated heparin, metoprolol tartrate as tolerated, amlodipine, and pravastatin. Supportive care with BiPAP. Continue furosemide. She received 40 mg in the emergency room last evening at a 2337. She is due for next dose at 5 PM. We will reassess creatinine and volume status tomorrow prior to re-dosing. History of Present Illness Attending Physician: Leanne Barr History of Present Illness Kami Hassan is a 72-year-old female seen in cardiology consultation per the request of Dr. Andrea for the evaluation of shortness of breath. The history is obtained from review of her records, as the patient is lethargic and unable to provide adequate history. The patient presented to the emergency department overnight last night. Over the last few days her had noted a change in behavior with the patient being more confused than usual. She had not been adherent to her home BiPAP recently. Increased lower extremity swelling had been noted. She presented to the emergency room was found to be lethargic and hypoxic. BiPAP was started in the emergency department. She was initially admitted to the telemetry floor but then became more somnolent after an interval off of BiPAP and was therefore transferred to the first floor intensive care unit for closer observation. She remains on BiPAP at the time of my assessment, but opens her eyes spont aneously and per her nurse is more alert than she had been when she first arrived to the unit. She does not follow routinely with cardiology. An echocardiogram performed while hospitalized in April 2016 revealed normal LV systolic function. A dobutamine stress echocardiogram performed in March 2016 was negative for inducible ischemia. Her rate related left bundle branch block was reported. Allergies Allergy/AdvReac Type Severity Reaction Status Date / Time No Known Allergies Allergy Verified 08/21/18 23:03 Home Medications Home Medications Medication Instructions Recorded Confirmed Type Betahistine Hydrochloride 16 mg PO BID 11/18/17 08/21/18 History aspirin 81 mg PO DAILY 11/18/17 08/21/18 History pravastatin [Pravachol] 40 mg PO DAILY 11/18/17 08/21/18 History sulfasalazine 1,000 mg PO BID 11/18/17 08/21/18 History amlodipine 5 mg PO DAILY 08/21/18 08/21/18 History carbidopa-levodopa 1 tab PO TID 08/21/18 08/21/18 History cyanocobalamin (vitamin B-12) 1,000 mcg PO DAILY 08/21/18 08/21/18 History [Vitamin B-12] levothyroxine 125 mcg PO QAM 08/21/18 08/21/18 History lisinopril 10 mg PO DAILY 08/21/18 08/21/18 History meclizine 25 mg PO TID PRN 08/21/18 08/21/18 History melatonin 10 mg PO HS 08/21/18 08/21/18 History metformin 500 mg PO DAILY 08/21/18 08/21/18 History oxybutynin chloride 5 mg PO DAILY 08/21/18 08/21/18 History pregabalin [Lyrica] 200 mg PO BID 08/21/18 08/21/18 History ropinirole 4 mg PO HS 08/21/18 08/21/18 History terazosin 10 mg PO DIRECTED 08/21/18 08/21/18 History venlafaxine 150 mg PO DAILY 08/21/18 08/21/18 History Patient History Medical History CKD (chronic kidney disease), stage III DM type 2 (diabetes mellitus, type 2) Depression Diabetes mellitus, type II Dyslipidemia Generalized anxiety disorder HTN (hypertension) Hypothyroidism Meniere's disease RENÉ on CPAP Restless leg syndrome Rheumatoid arthritis Surgical History H/O sinus surgery History of carpal tunnel surgery History of tubal ligation Hx of total knee arthroplasty "Left, Dr. Del Real" Family History Other AAA (abdominal aortic aneurysm) Diabetes Family history non-contributory Hypertension Myotonic dystrophy Social History Preferred Language: [place] Communication Ability: Effective Shipwright Required: No Beliefs That Will Affect Care: None marital status: Current Living Situation: Spouse Other Information That Helps Us Care for You: No Feels Safe at Home: Yes Safety Concerns: Feels Safe At This Time Smoking Status: Never smoker Tobacco Type: cigarettes Cigarettes Per Day: 0.25ppd Hx Alcohol Use: No Hx Substance Use: No Review of Systems Review of Systems: Unobtainable due to reduced consciousness Physical Exam Constitutional: + morbidly obese Respiratory: Auscultation: + diminished lung sounds (Mildly decreased breath sounds at the bases); no crackles, no rales and no rhonchi Cardiovascular: Rate/Rhythm: regular rate Heart Sounds: no murmur Extremities: + edema (1+ bilateral lower extremity edema) Gastrointestinal (Abdomen): Inspection/Auscultation: abdomen not distended Percussion/Palpation: abdomen nontender and no guarding Neurologic: Somnolent Results & Data Vital Signs (Past 12 Hours) Vital Signs Temp Pulse Pulse Resp BP BP Pulse Ox 08/22/18 12:19 36.8 C 08/22/18 12:00 54 L 21 142/92 H 95 08/22/18 11:40 57 L 22 96 08/22/18 10:00 36.6 C 63 22 147/64 H 08/22/18 08:17 71 71 24 94 08/22/18 08:00 36.7 C 76 70 17 162/59 H 98 08/22/18 05:10 64 159/68 H 08/22/18 04:33 37.2 C 68 18 159/68 H 97 08/22/18 04:15 88 19 94 08/22/18 03:01 36.6 C 82 16 167/65 H 94 08/22/18 01:32 74 22 74 L Laboratory Results Cardiac Enzymes 08/21/18 08/22/18 08/22/18 Range/Units 21:17 00:03 03:00 AST 31 (15-37) U/L Troponin I 0.601 H* 0.936 H* 1.240 H* (0-0.045) ng/ml 08/22/18 Range/Units 06:35 AST (15-37) U/L Troponin I 1.320 H* (0-0.045) ng/ml Coagulation 08/21/18 08/22/18 08/22/18 Range/Units 21:17 03:00 11:07 PT 10.0 (9.0-12.0) Seconds APTT 29.7 30.3 48.4 H* (21.0-31.0) Seconds Lipids 08/22/18 Range/Units 06:35 Triglycerides 77 (0-150) mg/dl Cholesterol 160 (0-200) mg/dl HDL Cholesterol 75 mg/dl Cholesterol/HDL Ratio 2 CBC 08/21/18 08/22/18 Range/Units 21:17 03:00 WBC 14.55 H 12.95 H (4.8-10.8) K/uL RBC 4.49 4.10 L (4.2-5.4) M/uL Hgb 12.3 11.4 L (12.0-16.0) g/dL Hct 39.3 35.7 L (37-47) % Plt Count 237 232 (130-400) K/uL Neut # (Auto) 11.85 H 10.26 H (1.4-6.5) K/uL Lymph # (Auto) 1.26 1.24 (1.2-3.4) K/uL [place] # (Auto) 1.29 H 1.32 H (0.11-0.59) K/uL Eos # (Auto) 0.01 0.00 (0-0.5) K/uL Baso # (Auto) 0.04 0.07 (0-0.2) K/uL Comprehensive Metabolic Panel 08/21/18 08/21/18 08/22/18 Range/Units 21:17 21:17 03:00 Sodium 142 142 140 (136-145) mmol/L Potassium 4.1 4.1 4.0 (3.5-5.1) mmol/L Chloride 109 H 109 H 108 H (98-107) mmol/L Carbon Dioxide 27 24 30 (21-32) mmol/L BUN 24 H 24 H 23 H (7-18) mg/dl Creatinine 1.33 H 1.40 H 1.27 H (0.6-1.2) mg/dl Glucose 109 H 108 H 125 H (70-99) mg/dl Calcium 9.0 8.8 8.3 L (8.5-10.1) mg/dl AST 31 (15-37) U/L ALT 26 (12-78) U/L Alkaline Phosphatase 128 H (45-117) U/L Total Protein 8.4 H (6.4-8.2) gm/dl Albumin 3.7 3.7 (3.4-5.0) gm/dl Intake and Output 08/21/18 08/22/18 08/22/18 22:59 06:59 14:59 Intake Total 500 / 888 388 / 888 158.4 / 158.4 Output Total 400 / 2600 2200 / 2600 1949 / 1950 Balance 100 / -1712 -1812 / -1712 -1791.6 / -1791.6 Intake: IV 500 / 888 388 / 888 158.4 / 158.4 Unasyn 3,000 mg In Sodium 108 / 108 108 / 108 Chloride 100 ml @ 216 mls/hr IV Q6 [facility] Rx#:[id number] Calcium Gluconate 10% 1,000 mg 60 / 60 In Nss 50 ml @ 240 mls/hr IV ONE ONE Rx#:[id number] HEPARIN SODIUM/DEXTROSE 25,000 50.4 / 50.4 units In 500 ml @ 1,400 UNITS/ HR 28 mls/hr IV .[id number] [facility] Rx #:[id number] MAGNESIUM SULFATE / D5W 1 gm In 100 / 100 100 ml @ 100 mls/hr IV ONE ONE Rx#:[id number] Zosyn 4.5 gm In D5 100 ml @ 240 120 / 120 mls/hr IV ONE ONE Rx#:[id number] Nss 1000ML 500 ml @ 999 mls/hr 500 / 500 IV .Q31M [facility] Rx#:[id number] Output: Urine 1000 / 1000 Urine Amount (Catheter) 400 / 1600 1200 / 1600 1949 Kirby/Indwelling 1200 / 1200 1949 / 1949 Straight 400 / 400 Other: # Unmeasured Voids 1 Weight 102.3 kg 101.8 kg Right radial arterial blood gas performed this morning at 543: pH 7.33, PCO2 50, PO2 92, bicarb 26 Diagnostic Findings EKG performed 08/21/2018 at 2111 hrs. revealed sinus rhythm with occasional PACs possible fusion complexes, incomplete left bundle branch block pattern noted with related repolarization abnormalities. Repeat EKG performed this morning 08/22/2018 at 622 and reviewed personally reveals sinus rhythm with ongoing interventricular conduction delay, incomplete left bundle branch block Compared to prior EKG performed 11/19/2017, interventricular conduction delay is relatively unchanged.
[2018-08-22 20:41] LABS: Albumin Level 3.7 gm/dl (3.4-5.0); BUN Creatinine Ratio 15.1 (10-20); Calcium 8.8 mg/dl (8.5-10.1); Creatinine Clr Calc Pharmacy 38.4 ml/min; Est GFR (African American) 36.6; Est GFR (Non-African American) 31.6; Potassium 3.5 mmol/L (3.5-5.1)
[2018-08-22 20:48] LABS: Albumin Globulin Ratio 0.8 (0.9-2); Bilirubin,Total 0.4 mg/dl (0.2-1); Globulin 4.5 gm/dl (2.5-4.0); Total Protein 8.2 gm/dl (6.4-8.2); Troponin I 1.68 ng/ml (0-0.045)
[2018-08-22] MEDS ORDERED: ROPINIROLE HCL 1 MG TABLET PO SCH (21:00)
[2018-08-22] MEDS ORDERED: ROPINIROLE 4 MG PO SCH (21:00)
[2018-08-23] MEDS: IPRATROPIUM BROMIDE NEB SOLN 0.02% 2.5 ML VIAL INH SCH ×4 (01:56→19:21)
[2018-08-23] MEDS: LEVALBUTEROL 1.25MG/0.5ML NEB INH SCH ×4 (01:56→19:21)
[2018-08-23 04:50] LABS: Mean Corpuscular Hgb Conc 32.4 g/dL (32-36); Mean Corpuscular Volume 86.4 fL (80-100); Mean Platelet Volume 11.2 fL (7.4-10.4); Platelet Count 232 K/uL (130-400); RDW Coefficient of Variation 15.6 % (11.5-14.5); RDW Standard Deviation 49.1 fL (36.4-46.3); Red Blood Count 4.28 M/uL (4.2-5.4)
[2018-08-23 05:11] LABS: Partial Thromboplastin Ratio 2.2
[2018-08-23] MEDS: LEVOTHYROXINE SODIUM 125 MCG TABLET PO SCH (05:27)
[2018-08-23] MEDS ORDERED: ALBUT/IPRATROP 3MG/0.5MG NEB 3 ML VIAL NEB STA (05:31)
[2018-08-23 05:33] LABS: BUN Creatinine Ratio 16.9 (10-20); Creatinine Clr Calc Pharmacy 35.1 ml/min; Est GFR (African American) 34.3; Est GFR (Non-African American) 29.6; Potassium 2.9 mmol/L (3.5-5.1); Troponin I 1.6 ng/ml (0-0.045)
[2018-08-23 05:34] LABS: Partial Thromboplastin Time 60.4 Seconds (21.0-31.0)
[2018-08-23] MEDS: POTASSIUM CHLORIDE / WTR 10 MEQ/100 ML PLCT IV SCH ×4 (05:53→08:46)
[2018-08-23] MEDS ORDERED: ALBUMIN 25% 50 ML with FUROSEMIDE 60 MG IV ONE (06:15)
[2018-08-23 06:16] LABS: Magnesium 1.7 mg/dl (1.8-2.4)
[2018-08-23 06:20] LABS: iSTAT Arterial Blood Gas HCO3 33 meg/L (19-24); iSTAT Arterial Blood Gas pCO2 49 mmHg (35-46); iSTAT Arterial Blood Gas pH 7.43 (7.35-7.45); iSTAT Carbon Dioxide 34 mEq/l (24-31); iSTAT FiO2 30 %; iSTAT Site L Radial
--- NOTE | 2018-08-23 06:28 | XRay Report ---
XR chest 1V portable HISTORY: 72 years-old Female low o2 acute hypoxia COMPARISON: Chest radiograph and CTA chest 08/22/2018 TECHNIQUE: Portable AP view of the chest FINDINGS: Cardiomegaly and pulmonary vascular congestion with decreased pulmonary edema. No pneumothorax. Trace pleural effusions with minimal subsegmental bibasilar atelectasis, also decreased from comparison. T he lung apices are secured by the patient's chin. Degenerative changes of the shoulders and spine. IMPRESSION: 1. Cardiomegaly and pulmonary vascular congestion with decreased pulmonary edema. 2. Trace pleural effusions with improved aeration of the lung bases. The above report was generated using voice recognition software. It may contain grammatical, syntax o r spelling errors. Electronically signed by: Arnoldo Stiles M.D. 08/23/2018 6:27 AM
[2018-08-23] MEDS: INSULIN ASPART 100 UNITS/ML 3 ML PEN SC SCH ×4 (07:34→20:24)
[2018-08-23] MEDS: MAGNESIUM SULFATE / D5W 1 GM/100 ML BAG IV SCH ×3 (07:55→10:07)
[2018-08-23] MEDS: CARBIDOPA/LEVODOPA 25/100MG TAB PO SCH ×3 (08:48→20:24)
[2018-08-23] MEDS: METOPROLOL TARTRATE 25 MG TAB PO SCH ×2 (08:48→20:18)
[2018-08-23] MEDS: sulfaSALAzine 500 MG TABLET PO SCH ×2 (08:48→20:25)
[2018-08-23] MEDS: CYANOCOBALAMIN 500 MCG TABLET (VITAMIN B-12) PO SCH (08:49)
[2018-08-23] MEDS: PRAVASTATIN SOD 40 MG TAB PO SCH (08:49)
[2018-08-23] MEDS: AMLODIPINE BESYLATE 5 MG TAB PO SCH (08:49)
[2018-08-23] MEDS: VENLAFAXINE HCL XR 150 MG CAPXR PO SCH (08:49)
[2018-08-23] MEDS ORDERED: ASPIRIN 325 MG ECTAB PO SCH (09:00)
[2018-08-23] MEDS ORDERED: POTASSIUM CHLORIDE 20 MEQ TABCR PO STA ×3 (09:28→10:30)
--- NOTE | 2018-08-23 09:35 | Cardiology Progress Note ---
Date of Service August 23, 2018 Assessment & Plan (1) Respiratory failure with hypoxia and hypercapnia: multifactorial respiratory failure due to hypercapnea, acute diastolic heart failure. Improved with BiPap and diuretics. Replace Bipap with sleep and naps. (2) NSTEMI (non-ST elevated myocardial infarction): likely demand ischemia in setting of hypoxia. EKG without evidence of acute ischemia. IVCD noted, with QRS duration improved this am. Trop 1.6, no chest pain. Continue heparin (monitor hematuria, PTT per protocol) ASA, metoprolol, pravastatin. (3) Hypokalemia: K was 2.9 mmol/L this am. Received 10 Meq IV x 1 thus far. Now that she is tolerating PO, will cancel the remaining 60 Meq IV, an provide 60 Meq PO. Repeat BMP and Magnesium at 1400 and again in am 08/24. Hold diuretics for now, creat trending up and diureses > 5 L thus far. DVT proph: on UF heparin infusion. OK to transfer to telemetry. Subjective CC: follow up lethargy, shortness of breath Subjective: patient off of Bipap first thing this am. She tells me she is hard of hearing. Otherwise comfortable. Telemetry reveals stable SR in the 60s this am. Physical Exam Constitutional: + ill appearing; no acute distress Respiratory: Auscultation: + diminished lung sounds (decreased BS at bases); no crackles, no rales and no rhonchi Cardiovascular: RRR, no murmur, no edema Extremities: no edema Gastrointestinal (Abdomen): normal bowel sounds, soft, nontender, no hepatosplenomegaly Skin: no rashes, warm and dry Neurologic: follows commands Genitourinary: Kirby catheter in place draining clear, pink tinged urine Results & Data Vital Signs (Past 12 Hours) Vital Signs Temp Pulse Pulse Resp BP Pulse Ox Pulse Ox 08/23/18 08:10 67 98 08/23/18 08:00 59 L 98 08/23/18 07:54 60 60 22 98 08/23/18 07:50 70 100 08/23/18 07:40 77 100 08/23/18 07:31 37.3 C 65 154/89 H 100 08/23/18 07:30 60 100 08/23/18 07:25 60 184/74 H 100 08/23/18 07:20 58 L 98 08/23/18 07:10 68 93 08/23/18 07:01 57 L 164/70 H 96 08/23/18 07:00 61 94 08/23/18 06:50 57 L 97 08/23/18 06:40 61 96 08/23/18 06:31 62 171/73 H 100 08/23/18 06:30 57 L 100 08/23/18 06:20 50 L 100 08/23/18 06:10 61 97 08/23/18 06:01 66 156/74 H 98 08/23/18 06:00 54 L 92 08/23/18 05:50 57 L 96 08/23/18 05:40 54 L 97 08/23/18 05:31 54 L 140/68 94 08/23/18 05:30 62 90 08/23/18 05:20 37.0 C 49 L 98 08/23/18 05:10 62 96 08/23/18 05:01 162/93 H 100 08/23/18 05:00 100 08/23/18 04:50 65 96 08/23/18 04:40 56 L 93 08/23/18 04:31 57 L 134/67 93 08/23/18 04:30 52 L 93 08/23/18 04:20 65 96 08/23/18 04:10 56 L 93 08/23/18 04:01 59 L 130/60 94 08/23/18 04:00 57 L 94 08/23/18 03:50 55 L 94 08/23/18 03:40 56 L 94 08/23/18 03:31 55 L 135/56 L 95 08/23/18 03:30 54 L 93 08/23/18 03:20 56 L 94 08/23/18 03:10 56 L 95 08/23/18 03:01 60 123/60 95 08/23/18 03:00 58 L 95 08/23/18 02:50 60 96 08/23/18 02:40 65 95 08/23/18 02:31 57 L 129/57 L 94 08/23/18 02:30 59 L 93 08/23/18 02:20 59 L 22 94 08/23/18 02:10 57 L 96 08/23/18 02:01 54 L 151/67 H 96 08/23/18 02:00 53 L 96 08/23/18 01:58 62 22 95 08/23/18 01:50 60 92 08/23/18 01:40 56 L 92 08/23/18 01:31 61 117/75 96 08/23/18 01:30 69 93 08/23/18 01:20 53 L 94 08/23/18 01:10 58 L 92 08/23/18 01:01 55 L 140/62 92 08/23/18 01:00 56 L 94 08/23/18 00:50 50 L 91 08/23/18 00:40 55 L 92 08/23/18 00:31 54 L 117/63 94 08/23/18 00:30 56 L 92 08/23/18 00:20 57 L 93 08/23/18 00:10 66 95 08/23/18 00:00 37.0 C 61 159/76 H 93 93 08/22/18 23:50 65 92 08/22/18 23:40 59 L 92 08/22/18 23:31 61 125/51 L 88 L 08/22/18 23:30 51 L 91 08/22/18 23:20 53 L 89 L 08/22/18 23:10 50 L 87 L 08/22/18 23:00 52 L 123/56 L 89 L Laboratory Results Cardiac Enzymes 08/22/18 08/23/18 Range/Units 20:02 04:23 AST 30 (15-37) U/L Troponin I 1.680 H* 1.600 H* (0-0.045) ng/ml Coagulation 08/22/18 08/23/18 Range/Units 11:07 04:23 APTT 48.4 H* 60.4 H* (21.0-31.0) Seconds CBC 08/23/18 Range/Units 04:23 WBC 10.70 (4.8-10.8) K/uL RBC 4.28 (4.2-5.4) M/uL Hgb 12.0 (12.0-16.0) g/dL Hct 37.0 (37-47) % Plt Count 232 (130-400) K/uL Comprehensive Metabolic Panel 08/22/18 08/23/18 Range/Units 20:02 04:23 Sodium 141 140 (136-145) mmol/L Potassium 3.5 2.9 L D (3.5-5.1) mmol/L Chloride 102 100 (98-107) mmol/L Carbon Dioxide 32 33 H (21-32) mmol/L BUN 24 H 29 H (7-18) mg/dl Creatinine 1.62 H D 1.71 H (0.6-1.2) mg/dl Glucose 96 97 (70-99) mg/dl Calcium 8.8 9.0 (8.5-10.1) mg/dl AST 30 (15-37) U/L ALT 31 (12-78) U/L Alkaline Phosphatase 117 (45-117) U/L Total Protein 8.2 (6.4-8.2) gm/dl Albumin 3.7 (3.4-5.0) gm/dl Intake and Output 08/22/18 08/23/18 08/23/18 22:59 06:59 14:59 Intake Total 535.467 / 1029.534 335.667 / 1029.534 246 / 246 Output Total 2200 / 4501 201 / 4501 425 / 425 Balance -1664.533 / -3471.466 134.667 / -3471.466 -179 / -179 Intake: IV 535.467 / 1029.534 335.667 / 1029.534 246 / 246 Unasyn 3,000 mg In Sodium 108 / 216 Chloride 100 ml @ 216 mls/hr IV Q6 [facility] Rx#:[id number] Albumin 25% 50 ml @ 54 mls/hr 56 / 56 IV ONE ONE with Lasix 60 mg Rx# :[id number] HEPARIN SODIUM/DEXTROSE 25,000 427.467 / 713.534 235.667 / 713.534 units In 500 ml @ 1,400 UNITS/ HR 28 mls/hr IV .[id number] [facility] Rx #:[id number] MAGNESIUM SULFATE / D5W 1 gm In 70 / 70 100 ml @ 100 mls/hr IV Q1H [facility] Rx#:[id number] K RIDER / WTR 10 meq In 100 ml 100 / 100 120 / 120 @ 100 mls/hr IV Q1H [facility] Rx#: [id number] Output: Urine Amount (Catheter) 2200 / 4500 200 / 4500 425 / 425 Kirby/Indwelling 2200 / 4500 200 / 4500 425 / 425 # Bowel Movements Other: Weight 95.4 kg Medications Administered Current Inpatient Medications Acetaminophen (Tylenol) 650 mg PO Q4H PRN PRN Reason: Pain or Fever Stop: 09/21/18 01:02 Amlodipine Besylate (Norvasc) 5 mg PO DAILY [facility] Stop: 09/21/18 08:59 Last Admin: 08/23/18 08:49 Dose: 5 mg Documented by: Aspirin (Ecotrin Ectab) 81 mg PO QAM [facility] Stop: 09/22/18 08:59 Last Admin: 08/22/18 09:53 Dose: 81 mg Documented by: Carbidopa/Levodopa (Sinemet 25/100 Mg) 1 tab PO TID [facility] Stop: 09/21/18 08:59 Last Admin: 08/23/18 08:48 Dose: 1 tab Documented by: Cyanocobalamin (Vitamin B-12) 1,000 mcg PO DAILY [facility] Stop: 09/21/18 08:59 Last Admin: 08/23/18 08:49 Dose: 1,000 mcg Documented by: Dextrose (Dextrose 50%) 25 - 50 ml IV UD PRN; Protocol PRN Reason: Hypoglycemia Protocol Stop: 09/21/18 01:02 Glucagon (Glucagen) 1 mg SQ UD PRN; Protocol PRN Reason: Hypoglycemia Protocol Stop: 09/21/18 01:02 Glucose (Glucose 40%) 15 - 30 gm PO UD PRN; Protocol PRN Reason: Hypoglycemia Protocol Stop: 09/21/18 01:02 Glucose (Dex4 Glucose) 4 - 8 tabs PO UD PRN; Protocol PRN Reason: Hypoglycemia Protocol Stop: 09/21/18 01:02 Promethazine HCl 12.5 mg/ (Sodium Chloride) 50.5 mls @ 202 mls/hr IV Q6H PRN PRN Reason: Nausea And Vomiting Stop: 09/21/18 01:02 Heparin Sodium/Dextrose (Heparin Sodium/Dextrose) 25,000 units in 500 mls @ 28 mls/hr IV .[id number] [facility]; Protocol Stop: 09/21/18 05:29 Last Titration: 08/23/18 06:50 Dose: 1,400 units/hr, 28 mls/hr Documented by: Magnesium Sulfate/Dextrose (Magnesium Sulfate / D5w) 1 gm in 100 mls @ 100 mls/hr IV Q1H [facility] Stop: 09/22/18 06:59 Last Admin: 08/23/18 08:37 Dose: 100 mls/hr Documented by: Insulin Aspart (Novolog Flexpen) 0 units SC ACHS [facility] Stop: 09/21/18 01:29 Last Admin: 08/23/18 07:34 Dose: Not Given Documented by: Ipratropium [place] (Atrovent 0.02% 0.5mg/2.5ml) 0.5 mg INH Q6R [facility] Stop: 09/21/18 07:59 Last Admin: 08/23/18 08:03 Dose: 0.5 mg Documented by: Levalbuterol HCl (Xopenex 1.25mg/0.5ml Neb) 1.25 mg INH Q6R [facility] Stop: 09/21/18 07:59 Last Admin: 08/23/18 08:03 Dose: 1.25 mg Documented by: Levothyroxine Sodium (Synthroid) 125 mcg PO DAILYBB [facility] Stop: 09/21/18 06:29 Last Admin: 08/23/18 05:27 Dose: Not Given Documented by: Metoprolol Tartrate (Lopressor) 12.5 mg PO BID [facility] Stop: 09/22/18 08:59 Last Admin: 08/23/18 08:48 Dose: 12.5 mg Documented by: Miscellaneous (Carbohydrates For Hypoglycemia) 15 - 30 gm PO UD PRN PRN Reason: Hypoglycemia Treatment Stop: 09/21/18 01:02 Miscellaneous (Icu Protocol For Hyperglycemia) 1 ea N/A PRN PRN; Protocol PRN Reason: Hyperglycemia Protocol Stop: 08/24/18 04:32 Nitroglycerin (Nitrostat) 0.4 mg SL UD PRN PRN Reason: Chest Pain Stop: 09/21/18 01:02 Pravastatin Sodium (Pravachol) 40 mg PO DAILY [facility] Stop: 09/21/18 08:59 Last Admin: 08/23/18 08:49 Dose: 40 mg Documented by: Pregabalin (Lyrica) 200 mg PO BID [facility] Stop: 09/21/18 08:59 Last Admin: 08/22/18 09:56 Dose: 200 mg Documented by: Ropinirole HCl (Requip) 4 mg PO HS [facility] Stop: 09/21/18 20:59 Last Admin: 08/22/18 09:53 Dose: 4 mg Documented by: Sulfadiazine (Azulfidine) 1,000 mg PO BID [facility] Stop: 09/21/18 08:59 Last Admin: 08/23/18 08:48 Dose: 1,000 mg Documented by: Tramadol HCl (Ultram) 25 mg PO Q4H PRN PRN Reason: Pain Stop: 09/20/18 23:40 Venlafaxine HCl (Effexor Extended Release) 150 mg PO DAILY [facility] Stop: 09/21/18 08:59 Last Admin: 08/23/18 08:49 Dose: 150 mg Documented by:
--- NOTE | 2018-08-23 10:32 | Critical Care Progress Note ---
Date of Service August 23, 2018 Assessment & Plan (1) NSTEMI (non-ST elevated myocardial infarction): Reason Critically Ill: Acute hypoxemic respiratory failure with altered mental status Neuro - Acute encephalopathy: Improved/improving -Hold Lyrica in the setting of mild SAM, could contribute to altered mental status -Hold Requip -Hold Ultram Parkinsonism: Continue carbidopa levodopa Cardiac - NSTEMI: Elevated troponins after presentation, improving continuing heparin per cardiology Echo performed earlier today showing preserved EF and no major wall motion abnormalities -Mildly elevated troponin I History CHF -Hypertension: Improved Respiratory - Hypercapnic respiratory failure: Resolved -Non-invasive mechanical ventilation when sleeping and with naps GI - Heart healthy diet with fluid restriction of 1800 mL's diet RENAL/LYTES - Hypokalemia: Potassium chloride by mouth Acute kidney injury: Scale back diuretic - Discontinue Kirby per nursing protocol ENDO - Blood sugars within normal limits -Continue Synthroid HEME - On heparin for elevated troponins ID - Afebrile LINES/IV ACCESS - PIVs intact. DVT PROPHYLAXIS - Heparin gtt. (2) Respiratory failure with hypoxia and hypercapnia: (3) Encephalopathy: (4) Weakness: (5) Change in mental status: (6) PNA (pneumonia): (7) Elevated troponin: (8) History of orthopedic surgery: Subjective No overnight events No overnight events Physical Exam Physical Exam: General: Alert. nontoxic. Skin: Warm, dry, Head: Atraumatic Ears, nose, mouth and throat: airway patent Cardiovascular: Normal peripheral perfusion Respiratory: no respiratory distress Gastrointestinal: Non distended Musculoskeletal: No deformity Results & Data Vital Signs (Past 12 Hours) Vital Signs Temp Pulse Pulse Resp BP Pulse Ox Pulse Ox 08/23/18 10:01 64 142/68 H 94 08/23/18 10:00 37.2 C 62 20 142/68 H 94 08/23/18 09:50 64 94 08/23/18 09:40 64 95 08/23/18 09:30 63 97 08/23/18 09:20 63 92 08/23/18 09:10 59 L 96 08/23/18 09:00 66 157/71 H 96 08/23/18 08:50 66 95 08/23/18 08:40 62 96 08/23/18 08:31 56 L 139/62 97 08/23/18 08:30 55 L 97 08/23/18 08:20 56 L 98 08/23/18 08:10 67 98 08/23/18 08:00 59 L 98 08/23/18 07:54 60 60 22 98 08/23/18 07:50 70 100 08/23/18 07:40 77 100 08/23/18 07:31 37.3 C 65 154/89 H 100 08/23/18 07:30 60 100 08/23/18 07:25 60 184/74 H 100 08/23/18 07:20 58 L 98 08/23/18 07:10 68 93 08/23/18 07:01 57 L 164/70 H 96 08/23/18 07:00 61 94 08/23/18 06:50 57 L 97 08/23/18 06:40 61 96 08/23/18 06:31 62 171/73 H 100 08/23/18 06:30 57 L 100 08/23/18 06:20 50 L 100 08/23/18 06:10 61 97 08/23/18 06:01 66 156/74 H 98 08/23/18 06:00 54 L 92 08/23/18 05:50 57 L 96 08/23/18 05:40 54 L 97 08/23/18 05:31 54 L 140/68 94 08/23/18 05:30 62 90 08/23/18 05:20 37.0 C 49 L 98 08/23/18 05:10 62 96 08/23/18 05:01 162/93 H 100 08/23/18 05:00 100 08/23/18 04:50 65 96 08/23/18 04:40 56 L 93 08/23/18 04:31 57 L 134/67 93 08/23/18 04:30 52 L 93 08/23/18 04:20 65 96 08/23/18 04:10 56 L 93 08/23/18 04:01 59 L 130/60 94 08/23/18 04:00 57 L 94 08/23/18 03:50 55 L 94 08/23/18 03:40 56 L 94 08/23/18 03:31 55 L 135/56 L 95 08/23/18 03:30 54 L 93 08/23/18 03:20 56 L 94 08/23/18 03:10 56 L 95 08/23/18 03:01 60 123/60 95 08/23/18 03:00 58 L 95 08/23/18 02:50 60 96 08/23/18 02:40 65 95 08/23/18 02:31 57 L 129/57 L 94 08/23/18 02:30 59 L 93 08/23/18 02:20 59 L 22 94 08/23/18 02:10 57 L 96 08/23/18 02:01 54 L 151/67 H 96 08/23/18 02:00 53 L 96 08/23/18 01:58 62 22 95 08/23/18 01:50 60 92 08/23/18 01:40 56 L 92 08/23/18 01:31 61 117/75 96 08/23/18 01:30 69 93 08/23/18 01:20 53 L 94 08/23/18 01:10 58 L 92 08/23/18 01:01 55 L 140/62 92 08/23/18 01:00 56 L 94 08/23/18 00:50 50 L 91 08/23/18 00:40 55 L 92 08/23/18 00:31 54 L 117/63 94 08/23/18 00:30 56 L 92 08/23/18 00:20 57 L 93 08/23/18 00:10 66 95 08/23/18 00:00 37.0 C 61 159/76 H 93 93 08/22/18 23:50 65 92 08/22/18 23:40 59 L 92 08/22/18 23:31 61 125/51 L 88 L 08/22/18 23:30 51 L 91 08/22/18 23:20 53 L 89 L 08/22/18 23:10 50 L 87 L 08/22/18 23:00 52 L 123/56 L 89 L Laboratory Results 08/23/18 08/23/18 08/23/18 Range/Units 07:29 06:05 05:37 WBC (4.8-10.8) K/uL RBC (4.2-5.4) M/uL Hgb (12.0-16.0) g/dL Hct (37-47) % MCV (80-100) fL MCH (25-34) pg MCHC (32-36) g/dL RDW Std Deviation (36.4-46.3) fL RDW Coeff of Bhavin (11.5-14.5) % Plt Count (130-400) K/uL MPV (7.4-10.4) fL APTT (21.0-31.0) Seconds PTT Ratio Sample Site L Radial POC pH 7.43 (7.35-7.45) POC pCO2 49 H (35-46) mmHg POC pO2 108 H (80-95) mmHg POC HCO3 33 H (19-24) ben/L POC Total CO2 34 H (24-31) mEq/l POC Base Excess 8.0 H (-9-1.8) ben/L POC ABG O2 Sat 98.0 H (90-95) % Richard Test NA O2 Delivery Device BIPAP POC O2 Rate 20 POC FiO2 30 % IPAP 20 Sodium (136-145) mmol/L Potassium (3.5-5.1) mmol/L Chloride (98-107) mmol/L Carbon Dioxide (21-32) mmol/L Anion Gap (3-11) BUN (7-18) mg/dl Creatinine (0.6-1.2) mg/dl Est Cr Clr Drug Dosing ml/min Est GFR ( Amer) Est GFR (Non-Af Amer) BUN/Creatinine Ratio (10-20) Glucose (70-99) mg/dl POC Glucose 118 H 106 H (70-99) Calcium (8.5-10.1) mg/dl Magnesium (1.8-2.4) mg/dl Total Bilirubin (0.2-1) mg/dl AST (15-37) U/L ALT (12-78) U/L Alkaline Phosphatase (45-117) U/L Troponin I (0-0.045) ng/ml Total Protein (6.4-8.2) gm/dl Albumin (3.4-5.0) gm/dl Globulin (2.5-4.0) gm/dl Albumin/Globulin Ratio (0.9-2) 08/23/18 08/23/18 08/23/18 Range/Units 04:23 04:23 04:23 WBC 10.70 (4.8-10.8) K/uL RBC 4.28 (4.2-5.4) M/uL Hgb 12.0 (12.0-16.0) g/dL Hct 37.0 (37-47) % MCV 86.4 (80-100) fL MCH 28.0 (25-34) pg MCHC 32.4 (32-36) g/dL RDW Std Deviation 49.1 H (36.4-46.3) fL RDW Coeff of Bhavin 15.6 H (11.5-14.5) % Plt Count 232 (130-400) K/uL MPV 11.2 H (7.4-10.4) fL APTT 60.4 H* (21.0-31.0) Seconds PTT Ratio 2.2 Sample Site POC pH (7.35-7.45) POC pCO2 (35-46) mmHg POC pO2 (80-95) mmHg POC HCO3 (19-24) ben/L POC Total CO2 (24-31) mEq/l POC Base Excess (-9-1.8) ben/L POC ABG O2 Sat (90-95) % Richard Test O2 Delivery Device POC O2 Rate POC FiO2 % IPAP Sodium 140 (136-145) mmol/L Potassium 2.9 L D (3.5-5.1) mmol/L Chloride 100 (98-107) mmol/L Carbon Dioxide 33 H (21-32) mmol/L Anion Gap 7.0 (3-11) BUN 29 H (7-18) mg/dl Creatinine 1.71 H (0.6-1.2) mg/dl Est Cr Clr Drug Dosing 35.1 ml/min Est GFR ( Amer) 34.3 Est GFR (Non-Af Amer) 29.6 BUN/Creatinine Ratio 16.9 (10-20) Glucose 97 (70-99) mg/dl POC Glucose (70-99) Calcium 9.0 (8.5-10.1) mg/dl Magnesium 1.7 L (1.8-2.4) mg/dl Total Bilirubin (0.2-1) mg/dl AST (15-37) U/L ALT (12-78) U/L Alkaline Phosphatase (45-117) U/L Troponin I 1.600 H* (0-0.045) ng/ml Total Protein (6.4-8.2) gm/dl Albumin (3.4-5.0) gm/dl Globulin (2.5-4.0) gm/dl Albumin/Globulin Ratio (0.9-2) 08/22/18 08/22/18 08/22/18 Range/Units 20:48 20:02 16:23 WBC (4.8-10.8) K/uL RBC (4.2-5.4) M/uL Hgb (12.0-16.0) g/dL Hct (37-47) % MCV (80-100) fL MCH (25-34) pg MCHC (32-36) g/dL RDW Std Deviation (36.4-46.3) fL RDW Coeff of Bhavin (11.5-14.5) % Plt Count (130-400) K/uL MPV (7.4-10.4) fL APTT (21.0-31.0) Seconds PTT Ratio Sample Site POC pH (7.35-7.45) POC pCO2 (35-46) mmHg POC pO2 (80-95) mmHg POC HCO3 (19-24) ben/L POC Total CO2 (24-31) mEq/l POC Base Excess (-9-1.8) ben/L POC ABG O2 Sat (90-95) % Richard Test O2 Delivery Device POC O2 Rate POC FiO2 % IPAP Sodium 141 (136-145) mmol/L Potassium 3.5 (3.5-5.1) mmol/L Chloride 102 (98-107) mmol/L Carbon Dioxide 32 (21-32) mmol/L Anion Gap 7.0 (3-11) BUN 24 H (7-18) mg/dl Creatinine 1.62 H D (0.6-1.2) mg/dl Est Cr Clr Drug Dosing 38.4 ml/min Est GFR ( Amer) 36.6 Est GFR (Non-Af Amer) 31.6 BUN/Creatinine Ratio 15.1 (10-20) Glucose 96 (70-99) mg/dl POC Glucose 108 H 104 H (70-99) Calcium 8.8 (8.5-10.1) mg/dl Magnesium (1.8-2.4) mg/dl Total Bilirubin 0.4 (0.2-1) mg/dl AST 30 (15-37) U/L ALT 31 (12-78) U/L Alkaline Phosphatase 117 (45-117) U/L Troponin I 1.680 H* (0-0.045) ng/ml Total Protein 8.2 (6.4-8.2) gm/dl Albumin 3.7 (3.4-5.0) gm/dl Globulin 4.5 H (2.5-4.0) gm/dl Albumin/Globulin Ratio 0.8 L (0.9-2) 08/22/18 08/22/18 08/22/18 Range/Units 11:09 11:07 07:40 WBC (4.8-10.8) K/uL RBC (4.2-5.4) M/uL Hgb (12.0-16.0) g/dL Hct (37-47) % MCV (80-100) fL MCH (25-34) pg MCHC (32-36) g/dL RDW Std Deviation (36.4-46.3) fL RDW Coeff of Bhavin (11.5-14.5) % Plt Count (130-400) K/uL MPV (7.4-10.4) fL APTT 48.4 H* (21.0-31.0) Seconds PTT Ratio 1.8 Sample Site POC pH (7.35-7.45) POC pCO2 (35-46) mmHg POC pO2 (80-95) mmHg POC HCO3 (19-24) ben/L POC Total CO2 (24-31) mEq/l POC Base Excess (-9-1.8) ben/L POC ABG O2 Sat (90-95) % Richard Test O2 Delivery Device POC O2 Rate POC FiO2 % IPAP Sodium (136-145) mmol/L Potassium (3.5-5.1) mmol/L Chloride (98-107) mmol/L Carbon Dioxide (21-32) mmol/L Anion Gap (3-11) BUN (7-18) mg/dl Creatinine (0.6-1.2) mg/dl Est Cr Clr Drug Dosing ml/min Est GFR ( Amer) Est GFR (Non-Af Amer) BUN/Creatinine Ratio (10-20) Glucose (70-99) mg/dl POC Glucose 120 H 141 H (70-99) Calcium (8.5-10.1) mg/dl Magnesium (1.8-2.4) mg/dl Total Bilirubin (0.2-1) mg/dl AST (15-37) U/L ALT (12-78) U/L Alkaline Phosphatase (45-117) U/L Troponin I (0-0.045) ng/ml Total Protein (6.4-8.2) gm/dl Albumin (3.4-5.0) gm/dl Globulin (2.5-4.0) gm/dl Albumin/Globulin Ratio (0.9-2) (1) Change in mental status Altered mental status type: unspecified Qualified Code(s): R41.82 - Altered mental status, unspecified (2) PNA (pneumonia) Laterality: bilateral Lung location: lower lobe of lung Pneumonia type: due to unspecified organism Qualified Code(s): J18.1 - Lobar pneumonia, unspecified organism
--- NOTE | 2018-08-23 11:17 | Hospitalist Progress Note ---
Date of Service August 23, 2018 Assessment & Plan (1) Encephalopathy: Improving Mental status has significantly improved. Awake, oriented to person, place Secondary to Acute hypoxic, hypercapnic respiratory failure/ Acute CHF exacerbation RENÉ possibly from recent addition of as needed meclizine to [id number] meclizine for worsening vertigo symptoms from Mnire's disease); possible aspiration pneumonitis -Hold home neuropsychotropic medications- Requip, Ultram, Lyrica ACUTE HYPOXIC HYPERCAPNIC RESPIRATORY FAILURE Multifactorial CHF exacerbation in setting of obesity/RENÉ -US duplex - Neg for DVT, subcutaneous edema in right popliteal fossa, CT chest - No PE, Patchy ground glass opacities, dependent consolidation in lower lobes with left >right lower lobe volume loss. CHF EXACERBATION Progressive weight gain of 5 kg over the last month/10 kg from 12/2017 on review of outpatient documented weights; possibly from uncontrolled blood pressure ? ability to take home BP meds/wear nighttime CPAP ) -IV Lasix 40 mg x 1 dose. Hold IV lasix for now as creatinine rising up -I/OS, daily weights- Neg balance -CXR- Cardiomegaly with decreasing volume overload and congestive change. Minimal pulmonary edema remains. Poor aeration of left lung base -Appreciate cardiology inputs NSTEMI 0.6--> 1.320 -Likely demand ischemia in setting of CHF exacerbation/HTN urgency -High risk for underlying CAD -Continue with aspirin, Metoprolol, IV Heparin therapeutic -Echocardiogram- Bedside in ICU- No wall motion abnormalities noted, Mild LVH -Cardiology on board HYPOKALEMIA Replete Received 100 meq so far SAM ON CKD III Baseline: 1.3 now up to 1.7 Hold IV lasix today. Monitor POSSIBLE ASPIRATION PNEUMONITIS -Symptoms more secondary to CHF exacerbation -Discontinued IV antibiotics DM2- HBA1C 5.3 -ISS, Accuchecks PARKINSONS DISEASE -Continue with Carbidopa-Levodopa TID RHEUMATOID ARTHRITIS ANXIETY/MOOD DISORDER Effexor 150 mg- OBESITY/RENÉ On CPAP at home, was not using for few days NUTRITION Taking PO now HARD OF HEARING Doesnt have her hearing aids DVT prophylaxis. Heparin subcutaneous Full code Disposition Ok to transfer to PCU PT/OT ordered Patient's requesting updates from providers Mr. Wesley Hassan, contact #[phone]. Updated by bedside Discussed with technology sales specialist and cardiology Subjective Patient is more awake, alert , oriented to place and person. Hard of hearing+ Denies any SOB, chest pain, fever, chills. Took her PO pills Off BIPAP and on nasal cannula 5 L Physical Exam Physical Exam: GENERAL- Drowsy, BIPAP + Opens eyes on command, BIPAP +, OBESE + LUNGS- Air entry bilaterally decreased. Crackles + . No rhonchi, crackles, wheezes heard. HEART- Regular rate and rhythm. No murmurs ABDOMEN- Soft, non tender, non distended, Bowel sounds heard. EXTREMITIES- Bilateral edema + - Foleys catheter + pink tinged urine + Results & Data Vital Signs (Past 12 Hours) Vital Signs Temp Pulse Pulse Resp BP Pulse Ox Pulse Ox 08/23/18 10:01 64 142/68 H 94 08/23/18 10:00 37.2 C 62 20 142/68 H 94 08/23/18 09:50 64 94 08/23/18 09:40 64 95 08/23/18 09:30 63 97 08/23/18 09:20 63 92 08/23/18 09:10 59 L 96 08/23/18 09:00 66 157/71 H 96 08/23/18 08:50 66 95 08/23/18 08:40 62 96 08/23/18 08:31 56 L 139/62 97 08/23/18 08:30 55 L 97 08/23/18 08:20 56 L 98 08/23/18 08:10 67 98 08/23/18 08:00 59 L 98 08/23/18 07:54 60 60 22 98 08/23/18 07:50 70 100 08/23/18 07:40 77 100 08/23/18 07:31 37.3 C 65 154/89 H 100 08/23/18 07:30 60 100 08/23/18 07:25 60 184/74 H 100 08/23/18 07:20 58 L 98 08/23/18 07:10 68 93 08/23/18 07:01 57 L 164/70 H 96 08/23/18 07:00 61 94 08/23/18 06:50 57 L 97 08/23/18 06:40 61 96 08/23/18 06:31 62 171/73 H 100 08/23/18 06:30 57 L 100 08/23/18 06:20 50 L 100 06/09/19 06:10 61 97 08/23/18 06:01 66 156/74 H 98 08/23/18 06:00 54 L 92 08/23/18 05:50 57 L 96 08/23/18 05:40 54 L 97 08/23/18 05:31 54 L 140/68 94 08/23/18 05:30 62 90 08/23/18 05:20 37.0 C 49 L 98 08/23/18 05:10 62 96 08/23/18 05:01 162/93 H 100 08/23/18 05:00 100 08/23/18 04:50 65 96 08/23/18 04:40 56 L 93 08/23/18 04:31 57 L 134/67 93 08/23/18 04:30 52 L 93 08/23/18 04:20 65 96 08/23/18 04:10 56 L 93 08/23/18 04:01 59 L 130/60 94 08/23/18 04:00 57 L 94 08/23/18 03:50 55 L 94 08/23/18 03:40 56 L 94 08/23/18 03:31 55 L 135/56 L 95 08/23/18 03:30 54 L 93 08/23/18 03:20 56 L 94 08/23/18 03:10 56 L 95 08/23/18 03:01 60 123/60 95 08/23/18 03:00 58 L 95 08/23/18 02:50 60 96 08/23/18 02:40 65 95 08/23/18 02:31 57 L 129/57 L 94 08/23/18 02:30 59 L 93 08/23/18 02:20 59 L 22 94 08/23/18 02:10 57 L 96 08/23/18 02:01 54 L 151/67 H 96 08/23/18 02:00 53 L 96 08/23/18 01:58 62 22 95 08/23/18 01:50 60 92 08/23/18 01:40 56 L 92 08/23/18 01:31 61 117/75 96 08/23/18 01:30 69 93 08/23/18 01:20 53 L 94 08/23/18 01:10 58 L 92 08/23/18 01:01 55 L 140/62 92 06/09/19 01:00 56 L 94 08/23/18 00:50 50 L 91 08/23/18 00:40 55 L 92 08/23/18 00:31 54 L 117/63 94 08/23/18 00:30 56 L 92 08/23/18 00:20 57 L 93 08/23/18 00:10 66 95 08/23/18 00:00 37.0 C 61 159/76 H 93 93 08/22/18 23:50 65 92 08/22/18 23:40 59 L 92 08/22/18 23:31 61 125/51 L 88 L 08/22/18 23:30 51 L 91 08/22/18 23:20 53 L 89 L 08/22/18 23:10 50 L 87 L
[2018-08-23 14:49] LABS: BUN Creatinine Ratio 17.9 (10-20); Calcium 8.5 mg/dl (8.5-10.1); Creatinine Clr Calc Pharmacy 32.8 ml/min; Est GFR (African American) 31.6; Est GFR (Non-African American) 27.3; Magnesium 2.1 mg/dl (1.8-2.4); Potassium 3.8 mmol/L (3.5-5.1)
[2018-08-23] MEDS: Heparin Adult STANDARD Wt-Based Dextrose 5% 25,000 units/500 mL IV SCH (16:49)
[2018-08-24] MEDS: IPRATROPIUM BROMIDE NEB SOLN 0.02% 2.5 ML VIAL INH SCH ×4 (01:51→20:00)
[2018-08-24] MEDS: LEVALBUTEROL 1.25MG/0.5ML NEB INH SCH ×4 (01:51→20:00)
[2018-08-24] MEDS: LEVOTHYROXINE SODIUM 125 MCG TABLET PO SCH (04:59)
[2018-08-24 05:55] LABS: Hemoglobin 12.7 g/dL (12.0-16.0); Mean Corpuscular Hgb Conc 31.8 g/dL (32-36); Mean Corpuscular Volume 86.6 fL (80-100); Mean Platelet Volume 11.1 fL (7.4-10.4); Platelet Count 226 K/uL (130-400); RDW Coefficient of Variation 15.6 % (11.5-14.5); RDW Standard Deviation 49.5 fL (36.4-46.3); Red Blood Count 4.62 M/uL (4.2-5.4); White Blood Count 9.58 K/uL (4.8-10.8)
[2018-08-24 06:19] LABS: BUN Creatinine Ratio 20.2 (10-20); Calcium 9.2 mg/dl (8.5-10.1); Creatinine Clr Calc Pharmacy 37.3 ml/min; Est GFR (African American) 36.4; Est GFR (Non-African American) 31.4; Potassium 3.6 mmol/L (3.5-5.1)
[2018-08-24 06:47] LABS: Partial Thromboplastin Time 53.3 Seconds (21.0-31.0)
[2018-08-24] MEDS: INSULIN ASPART 100 UNITS/ML 3 ML PEN SC SCH ×4 (08:00→21:39)
[2018-08-24] MEDS: CYANOCOBALAMIN 500 MCG TABLET (VITAMIN B-12) PO SCH (08:01)
[2018-08-24] MEDS: METOPROLOL TARTRATE 25 MG TAB PO SCH ×2 (08:01→21:00)
[2018-08-24] MEDS: AMLODIPINE BESYLATE 5 MG TAB PO SCH (08:01)
[2018-08-24] MEDS: CARBIDOPA/LEVODOPA 25/100MG TAB PO SCH ×3 (08:02→21:00)
[2018-08-24] MEDS: PRAVASTATIN SOD 40 MG TAB PO SCH (08:02)
[2018-08-24] MEDS: ASPIRIN 81 MG ECTAB PO SCH (08:02)
[2018-08-24] MEDS: VENLAFAXINE HCL XR 150 MG CAPXR PO SCH (08:02)
[2018-08-24] MEDS: sulfaSALAzine 500 MG TABLET PO SCH ×2 (08:02→21:00)
[2018-08-24] MEDS: Heparin Adult STANDARD Wt-Based Dextrose 5% 25,000 units/500 mL IV SCH (08:10)
--- NOTE | 2018-08-24 11:25 | Hospitalist Progress Note ---
Date of Service August 24, 2018 Assessment & Plan (1) Encephalopathy: Resolving Mental status has significantly improved. Awake, oriented to person, place and near baseline Secondary to Acute hypoxic, hypercapnic respiratory failure/ Acute CHF exacerbation RENÉ possibly from recent addition of as needed meclizine to [id number] meclizine for worsening vertigo symptoms from Mnire's disease); possible aspiration pneumonitis -Hold home neuropsychotropic medications- Requip, Ultram, Lyrica ACUTE HYPOXIC HYPERCAPNIC RESPIRATORY FAILURE- Improving Multifactorial CHF exacerbation in setting of obesity/RENÉ -US duplex - Neg for DVT, subcutaneous edema in right popliteal fossa, CT chest - No PE, Patchy ground glass opacities, dependent consolidation in lower lobes with left >right lower lobe volume loss. CHF EXACERBATION Progressive weight gain of 5 kg over the last month/10 kg from 12/2017 on review of outpatient documented weights; possibly from uncontrolled blood pressure ? ability to take home BP meds/wear nighttime CPAP ) -IV Lasix 40 mg x 1 dose. Held diuretics since 08/22 as creatinine was going up -I/OS, daily weights- Neg balance, weight down -CXR- Cardiomegaly with decreasing volume overload and congestive change. M inimal pulmonary edema remains. Poor aeration of left lung base -Appreciate cardiology inputs NSTEMI 0.6--> 1.320 -Likely demand ischemia in setting of CHF exacerbation/HTN urgency -High risk for underlying CAD -Continue with aspirin, Metoprolol, IV Heparin therapeutic -Echocardiogram- Bedside in ICU- No wall motion abnormalities noted, Mild LVH -Cardiology on board HYPOKALEMIA/HYPOMAGNESEMIA Resolved Received 100 meq so far Monitor SAM ON CKD III Baseline: 1.3 ; went up to 1.83, now trending down -Holding diuretics since 08/22 after initial diuresis due to creatinine elevation -Holding lisinopril -Monitor POSSIBLE ASPIRATION PNEUMONITIS -Symptoms more secondary to CHF exacerbation -Discontinued IV antibiotics DM2- HBA1C 5.3 -ISS, Accuchecks PARKINSONS DISEASE -Continue with Carbidopa-Levodopa TID RHEUMATOID ARTHRITIS ANXIETY/MOOD DISORDER Effexor 150 mg OBESITY/RENÉ On CPAP at home, was not using for few days prior to admission Continue with CPAP while in the hospital NUTRITION Taking PO now HARD OF HEARING Doesnt have her hearing aids DVT prophylaxis. Heparin subcutaneous Full code Disposition PT/OT recommends inpatient rehab Patient's requesting updates from providers Mr. Wesley Hassan, contact #[phone]. Subjective Patient is doing much better today. Out of bed to chair. Hard of hearing+ Denies any SOB, chest pain, fever, chills. Tolerating diet well Oxygen level is down to 3 L from 5 L yesterday Used CPAP overnight Physical Exam Physical Exam: GENERAL- Awake, alert, oriented x 2, OOB to chair LUNGS- Air entry bilaterally decreased. Crackles + . No rhonchi, crackles, wheezes heard. HEART- Regular rate and rhythm. No murmurs ABDOMEN- Soft, non tender, non distended, Bowel sounds heard. EXTREMITIES- Bilateral edema + - Foleys catheter + Results & Data Vital Signs (Past 12 Hours) Vital Signs Temp Pulse Pulse Resp BP BP Pulse Ox 08/24/18 08:00 36.7 C 67 69 18 148/61 H 97 08/24/18 07:04 72 16 91 08/24/18 02:59 37.1 C 63 21 150/60 H 97 08/24/18 02:02 61 21 97 08/24/18 01:51 61 21 97 08/24/18 00:19 63
--- NOTE | 2018-08-24 12:15 | Cardiology Progress Note ---
Date of Service August 24, 2018 Assessment & Plan (1) Respiratory failure with hypoxia and hypercapnia: Continue BiPAP support as needed and sleep. (2) NSTEMI (non-ST elevated myocardial infarction): No anginal symptoms. Continue medication management. The patient has completed 48 hours of unfractioned heparin. This will be discontinued and she will be transition to subcutaneous heparin for DVT prophylaxis every 8 hours. Continue aspirin, continue metoprolol, dose to be increased to 25 mg twice daily, continue pravastatin. Subjective Chief complaint: Lethargy, shortness of breath, elevated troponin Subjective: Patient more alert today. Conversant. No complaints. Sinus rhythm noted on telemetry. Physical Exam Constitutional: Chronically ill in appearance with no acute distress Respiratory: normal respiratory effort, lungs clear to auscultation Cardiovascular: RRR, no murmur, no edema Vessels: no JVD Gastrointestinal (Abdomen): normal bowel sounds, soft, nontender, no hepatosplenomegaly Neurologic: Hearing deficit noted, lethargy improved, follows commands, moves all 4 extremities Results & Data Vital Signs (Past 12 Hours) Vital Signs Temp Pulse Pulse Resp BP BP Pulse Ox 08/24/18 08:00 36.7 C 67 69 18 148/61 H 97 08/24/18 07:04 72 16 91 08/24/18 02:59 37.1 C 63 21 150/60 H 97 08/24/18 02:02 61 21 97 08/24/18 01:51 61 21 97 08/24/18 00:19 63 Medications Administered Current Inpatient Medications Acetaminophen (Tylenol) 650 mg PO Q4H PRN PRN Reason: Pain or Fever Stop: 09/21/18 01:02 Amlodipine Besylate (Norvasc) 5 mg PO DAILY [facility] Stop: 09/21/18 08:59 Last Admin: 08/24/18 08:01 Dose: 5 mg Documented by: Aspirin (Ecotrin Ectab) 81 mg PO QAM [facility] Stop: 09/22/18 08:59 Last Admin: 08/24/18 08:02 Dose: 81 mg Documented by: Carbidopa/Levodopa (Sinemet 25/100 Mg) 1 tab PO TID [facility] Stop: 09/21/18 08:59 Last Admin: 08/24/18 08:02 Dose: 1 tab Documented by: Cyanocobalamin (Vitamin B-12) 1,000 mcg PO DAILY [facility] Stop: 09/21/18 08:59 Last Admin: 08/24/18 08:01 Dose: 1,000 mcg Documented by: Dextrose (Dextrose 50%) 25 - 50 ml IV UD PRN; Protocol PRN Reason: Hypoglycemia Protocol Stop: 09/21/18 01:02 Glucagon (Glucagen) 1 mg SQ UD PRN; Protocol PRN Reason: Hypoglycemia Protocol Stop: 09/21/18 01:02 Glucose (Glucose 40%) 15 - 30 gm PO UD PRN; Protocol PRN Reason: Hypoglycemia Protocol Stop: 09/21/18 01:02 Glucose (Dex4 Glucose) 4 - 8 tabs PO UD PRN; Protocol PRN Reason: Hypoglycemia Protocol Stop: 09/21/18 01:02 Heparin Sodium (Porcine) (Heparin Sodium (Porcine)) 5,000 units SQ Q8 [facility] Stop: 09/23/18 13:59 Promethazine HCl 12.5 mg/ (Sodium Chloride) 50.5 mls @ 202 mls/hr IV Q6H PRN PRN Reason: Nausea And Vomiting Stop: 09/21/18 01:02 Insulin Aspart (Novolog Flexpen) 0 units SC ACHS [facility] Stop: 09/21/18 01:29 Last Admin: 08/24/18 12:00 Dose: 2 units Documented by: Ipratropium [place] (Atrovent 0.02% 0.5mg/2.5ml) 0.5 mg INH Q6R [facility] Stop: 09/21/18 07:59 Last Admin: 08/24/18 07:04 Dose: 0.5 mg Documented by: Levalbuterol HCl (Xopenex 1.25mg/0.5ml Neb) 1.25 mg INH Q6R [facility] Stop: 09/21/18 07:59 Last Admin: 08/24/18 07:04 Dose: 1.25 mg Documented by: Levothyroxine Sodium (Synthroid) 125 mcg PO DAILYBB [facility] Stop: 09/21/18 06:29 Last Admin: 08/24/18 04:59 Dose: 125 mcg Documented by: Metoprolol Tartrate (Lopressor) 12.5 mg PO BID [facility] Stop: 09/22/18 08:59 Last Admin: 08/24/18 08:01 Dose: 12.5 mg Documented by: Miscellaneous (Carbohydrates For Hypoglycemia) 15 - 30 gm PO UD PRN PRN Reason: Hypoglycemia Treatment Stop: 09/21/18 01:02 Nitroglycerin (Nitrostat) 0.4 mg SL UD PRN PRN Reason: Chest Pain Stop: 09/21/18 01:02 Pravastatin Sodium (Pravachol) 40 mg PO DAILY [facility] Stop: 09/21/18 08:59 Last Admin: 08/24/18 08:02 Dose: 40 mg Documented by: Pregabalin (Lyrica) 200 mg PO BID [facility] Stop: 09/21/18 08:59 Last Admin: 08/22/18 09:56 Dose: 200 mg Documented by: Sulfadiazine (Azulfidine) 1,000 mg PO BID [facility] Stop: 09/21/18 08:59 Last Admin: 08/24/18 08:02 Dose: 1,000 mg Documented by: Venlafaxine HCl (Effexor Extended Release) 150 mg PO DAILY [facility] Stop: 09/21/18 08:59 Last Admin: 08/24/18 08:02 Dose: 150 mg Documented by:
[2018-08-24] MEDS: HEPARIN SOD 5,000 UNIT/0.5 ML VIAL SQ SCH ×2 (13:39→21:39)
[2018-08-24] MEDS: PREGABALIN 100 MG CAP PO SCH (21:00)
[2018-08-25] MEDS: IPRATROPIUM BROMIDE NEB SOLN 0.02% 2.5 ML VIAL INH SCH ×4 (02:17→19:08)
[2018-08-25] MEDS: LEVALBUTEROL 1.25MG/0.5ML NEB INH SCH ×4 (02:18→19:08)
[2018-08-25] MEDS: LEVOTHYROXINE SODIUM 125 MCG TABLET PO SCH (05:13)
[2018-08-25] MEDS: HEPARIN SOD 5,000 UNIT/0.5 ML VIAL SQ SCH ×3 (05:14→21:11)
[2018-08-25 06:19] LABS: Hematocrit (blood only) 36.6 % (37-47); Hemoglobin 11.7 g/dL (12.0-16.0); Mean Corpuscular Volume 86.1 fL (80-100); Mean Platelet Volume 10.6 fL (7.4-10.4); Platelet Count 221 K/uL (130-400); RDW Coefficient of Variation 15.8 % (11.5-14.5); RDW Standard Deviation 49.7 fL (36.4-46.3); Red Blood Count 4.25 M/uL (4.2-5.4); White Blood Count 8.75 K/uL (4.8-10.8)
[2018-08-25 06:57] LABS: BUN Creatinine Ratio 21.1 (10-20); Calcium 8.8 mg/dl (8.5-10.1); Creatinine Clr Calc Pharmacy 36.8 ml/min; Est GFR (African American) 35.8; Est GFR (Non-African American) 30.9; Potassium 3.6 mmol/L (3.5-5.1)
[2018-08-25] MEDS: CYANOCOBALAMIN 500 MCG TABLET (VITAMIN B-12) PO SCH (08:13)
[2018-08-25] MEDS: METOPROLOL TARTRATE 25 MG TAB PO SCH ×2 (08:13→21:11)
[2018-08-25] MEDS: CARBIDOPA/LEVODOPA 25/100MG TAB PO SCH ×3 (08:13→21:10)
[2018-08-25] MEDS: VENLAFAXINE HCL XR 150 MG CAPXR PO SCH (08:14)
[2018-08-25] MEDS: INSULIN ASPART 100 UNITS/ML 3 ML PEN SC SCH ×2 (08:14→12:47)
[2018-08-25] MEDS: ASPIRIN 81 MG ECTAB PO SCH (08:14)
[2018-08-25] MEDS: AMLODIPINE BESYLATE 5 MG TAB PO SCH (08:14)
[2018-08-25] MEDS: sulfaSALAzine 500 MG TABLET PO SCH ×2 (08:14→21:11)
[2018-08-25] MEDS: PRAVASTATIN SOD 40 MG TAB PO SCH (08:14)
[2018-08-25] MEDS: PREGABALIN 100 MG CAP PO SCH (08:15)
--- NOTE | 2018-08-25 13:20 | Hospitalist Progress Note ---
Date of Service August 25, 2018 Assessment & Plan (1) Encephalopathy: Mental status has significantly improved after BIPAP use and continuous CPAP use. However did not use it yesterday night. Again more lethargic ---> Placed her back on BIPAP. Per , had some slurred speech ?. Unable to do neurological exam Secondary to Acute hypoxic, hypercapnic respiratory failure/ Acute CHF exacerbation RENÉ possibly from recent addition of as needed meclizine to [id number] meclizine for worsening vertigo symptoms from Mnire's disease); possible aspiration pneumonitis -Hold home neuropsychotropic medications- Requip, Ultram, Lyrica ACUTE HYPOXIC HYPERCAPNIC RESPIRATORY FAILURE- Worsening again Multifactorial CHF exacerbation in setting of obesity/RENÉ -US duplex - Neg for DVT, subcutaneous edema in right popliteal fossa, CT chest - No PE, Patchy ground glass opacities, dependent consolidation in lower lobes with left >right lower lobe volume loss. -Will try to wean down on oxygen and restart BIPAP - will need to use it during day time as well. Will order repeat CXR today CHF EXACERBATION Progressive weight gain of 5 kg over the last month/10 kg from 12/2017 on review of outpatient documented weights; possibly from uncontrolled blood pressure ? ability to take home BP meds/wear nighttime CPAP ) -IV Lasix 40 mg x 1 dose. Held diuretics since 08/22 as creatinine was going up. Not indicated at this time per cardiology -I/OS, daily weights- Neg balance, weight down -CXR- Cardiomegaly with decreasing volume overload and congestive change. Minimal pulmonary edema remains. Poor aeration of left lung base -Appreciate cardiology inputs NSTEMI 0.6--> 1.320 -Likely demand ischemia in setting of CHF exacerbation/HTN urgency -High risk for underlying CAD -Continue with aspirin, Metoprolol, IV Heparin therapeutic -Echocardiogram- Bedside in ICU- No wall motion abnormalities noted, Mild LVH -Cardiology on board HYPOKALEMIA/HYPOMAGNESEMIA Resolved Monitor SAM ON CKD III Baseline: 1.3 ; went up to 1.83, now trending down -Holding diuretics since 08/22 after initial diuresis due to creatinine elevation -Holding lisinopril -Monitor POSSIBLE ASPIRATION PNEUMONITIS -Symptoms more secondary to CHF exacerbation -Discontinued IV antibiotics after 2 days . On indication DM2- HBA1C 5.3 -Discontinue ISS, Accuchecks as blood glucose has been stable in 100s with HBA1C only 5.3 PARKINSONS DISEASE -Continue with Carbidopa-Levodopa TID RHEUMATOID ARTHRITIS ANXIETY/MOOD DISORDER Effexor 150 mg OBESITY/RENÉ On CPAP at home, was not using for few days prior to admission Continue with BIPAP instead of CPAP overnight. Did not use it yesterday May consider BIPAP over CPAP on discharge ??? Will need to discuss if pulmonary- awaiting ABG results NUTRITION Taking PO now HARD OF HEARING Doesnt have her hearing aids DVT prophylaxis. Heparin subcutaneous Full code Disposition PT/OT recommends inpatient rehab was updated by bedside- she is not too compliant with CPAP at home Patient's requesting updates from providers Mr. Wesley Hassan, contact #[phone]. Subjective Patient is again lethargic requiring place her back on BiPAP. Did not use her CPAP overnight Requiring oxygen 5 L via nasal cannula. Physical Exam Physical Exam: GENERAL-patient is again more lethargic today. BIPAP placed LUNGS- Air entry bilaterally decreased. Crackles + . No rhonchi, crackles, wheezes heard. HEART- Regular rate and rhythm. No murmurs ABDOMEN- Soft, non tender, non distended, Bowel sounds heard. EXTREMITIES- Bilateral edema + NEUROLOGICAL EXAM- Unable to evaluate as lethargic - Foleys catheter + Results & Data Vital Signs (Past 12 Hours) Vital Signs Temp Pulse Resp BP BP Pulse Ox Pulse Ox 08/25/18 11:28 58 L 24 143/64 H 93 08/25/18 08:00 96 08/25/18 07:15 36.5 C 65 18 175/72 H 98 08/25/18 07:09 61 16 88 L 08/25/18 04:02 36.6 C 63 19 140/58 L 93 08/25/18 02:20 62 20 84 L
--- NOTE | 2018-08-25 13:45 | XRay Report ---
XR chest 1V portable CLINICAL HISTORY: 72 years-old Female presenting with HYPOXIC. TECHNIQUE: Portable upright AP view of the chest was obtained. COMPARISON: 08/23/2018. FINDINGS: Atherosclerosis of the aortic arch. Cardiac silhouette enlarged. Mild pulmonary vascular prominence. Mildly low lung volumes. No focal opacity. No large effusion or pneumothorax. Degenerative changes of the thoracic spine. External leads project over the right upper quadrant. IMPRESSION: 1. Cardiomegaly with mild volume overload. No noemy edema. 2. Mildly low lung volumes. Electronically signed by: Nilesh Orellana M.D. 08/25/2018 1:44 PM
[2018-08-25 13:48] LABS: HCO3 ABG 31 mmol/L (19-24); Oxygen Saturation ABG 94.7 % (90-95); PCO2 ABG 50 mmHg (35-46); PO2 ABG 81 mm/Hg (80-95); pH ABG 7.41 (7.35-7.45)
[2018-08-25 13:49] LABS: Allen Test Pos (Pos)
--- NOTE | 2018-08-25 15:43 | Magnetic Resonance Report ---
Brain MRI WITHOUT CONTRAST HISTORY: Slurred speech per ? TECHNIQUE: Multiplanar multisequence MRI of the brain was performed without the use of contrast. COMPARISON STUDY: Head CT . FINDINGS: There is no mass, hematoma, midline shift, or acute infarct. The ventricles and sulci demon strate mild age-related involutional changes. Scattered foci of T2 hyperintensity seen within the per iventricular and subcortical white matter are nonspecific but suggestive of mild microvascular ischem ic changes. The major vascular flow voids at the skull base are well-maintained. Mild mucosal thicken ing within the right max a sinus and left sphenoid sinus. A few opacified mastoid air cells. IMPRESSION: No acute intracranial abnormality. A few foci of T2 hyperintensity seen within the periventricular an d subcortical white matter are nonspecific but favor microvascular ischemic change. Electronically signed by: Carlos Jenkins M.D. 08/25/2018 3:42 PM
--- NOTE | 2018-08-25 18:21 | Cardiology Progress Note ---
Date of Service August 25, 2018 Assessment & Plan (1) Respiratory failure with hypoxia and hypercapnia: (2) NSTEMI (non-ST elevated myocardial infarction): NSTEMI due to hypoxia. Volume status stable. Recommend ongoing noninvasive positive pressure ventilation with sleep. Continue ASA, metoprolol, statin. Subjective CC: follow up shortness of breath, somnolence Subjective: patient seen at 6:18 pm. Awake , conversent . Per review of chart was somnolent again this am, now improved. Telemetry reveals stable SR. Physical Exam Constitutional: no acute distress Respiratory: normal respiratory effort, lungs clear to auscultation Cardiovascular: RRR, no murmur, no edema Gastrointestinal (Abdomen): normal bowel sounds, soft, nontender, no hepatosplenomegaly Neurologic: no focal deficits. Hearing impairment. Results & Data Vital Signs (Past 12 Hours) Vital Signs Temp Pulse Pulse Resp BP BP Pulse Ox 08/25/18 16:00 08/25/18 14:27 56 L 20 96 08/25/18 14:25 56 L 20 96 08/25/18 11:28 58 L 24 143/64 H 93 08/25/18 08:00 08/25/18 07:15 36.5 C 65 18 175/72 H 98 08/25/18 07:09 61 16 88 L Pulse Ox 08/25/18 16:00 90 08/25/18 14:27 08/25/18 14:25 08/25/18 11:28 08/25/18 08:00 96 08/25/18 07:15 08/25/18 07:09 Laboratory Results Cardiac Enzymes 08/21/18 08/21/18 08/22/18 Range/Units 21:17 21:17 03:00 Creatinine 1.33 H 1.40 H 1.27 H (0.6-1.2) mg/dl 08/22/18 08/23/18 08/23/18 Range/Units 20:02 04:23 13:58 Creatinine 1.62 H D 1.71 H 1.83 H (0.6-1.2) mg/dl 08/24/18 08/25/18 Range/Units 05:19 06:07 Creatinine 1.63 H 1.65 H (0.6-1.2) mg/dl CBC 08/25/18 Range/Units 06:07 WBC 8.75 (4.8-10.8) K/uL RBC 4.25 (4.2-5.4) M/uL Hgb 11.7 L (12.0-16.0) g/dL Hct 36.6 L (37-47) % Plt Count 221 (130-400) K/uL Comprehensive Metabolic Panel 08/25/18 Range/Units 06:07 Sodium 141 (136-145) mmol/L Potassium 3.6 (3.5-5.1) mmol/L Chloride 103 (98-107) mmol/L Carbon Dioxide 32 (21-32) mmol/L BUN 35 H (7-18) mg/dl Creatinine 1.65 H (0.6-1.2) mg/dl Glucose 100 H (70-99) mg/dl Calcium 8.8 (8.5-10.1) mg/dl Intake and Output 08/25/18 08/25/18 08/25/18 06:59 14:59 22:59 Intake Total 50 / 50 Output Total 175 / 175 Balance -125 / -125 Intake: Oral 50 / 50 Output: Urine Amount (Catheter) 175 / 175 [place]/Indwelling 175 / 175 Other: Weight 97.2 kg Patient Weight 08/26/18 06:59 Weight 97.2 kg Medications Administered Current Inpatient Medications Acetaminophen (Tylenol) 650 mg PO Q4H PRN PRN Reason: Pain or Fever Stop: 09/21/18 01:02 Amlodipine Besylate (Norvasc) 5 mg PO DAILY [facility] Stop: 09/21/18 08:59 Last Admin: 08/25/18 08:14 Dose: 5 mg Documented by: Aspirin (Ecotrin Ectab) 81 mg PO QAM [facility] Stop: 09/22/18 08:59 Last Admin: 08/25/18 08:14 Dose: 81 mg Documented by: Carbidopa/Levodopa (Sinemet 25/100 Mg) 1 tab PO TID [facility] Stop: 09/21/18 08:59 Last Admin: 08/25/18 15:40 Dose: 1 tab Documented by: Cyanocobalamin (Vitamin B-12) 1,000 mcg PO DAILY [facility] Stop: 09/21/18 08:59 Last Admin: 08/25/18 08:13 Dose: 1,000 mcg Documented by: Dextrose (Dextrose 50%) 25 - 50 ml IV UD PRN; Protocol PRN Reason: Hypoglycemia Protocol Stop: 09/21/18 01:02 Glucagon (Glucagen) 1 mg SQ UD PRN; Protocol PRN Reason: Hypoglycemia Protocol Stop: 09/21/18 01:02 Glucose (Glucose 40%) 15 - 30 gm PO UD PRN; Protocol PRN Reason: Hypoglycemia Protocol Stop: 09/21/18 01:02 Glucose (Dex4 Glucose) 4 - 8 tabs PO UD PRN; Protocol PRN Reason: Hypoglycemia Protocol Stop: 09/21/18 01:02 Heparin Sodium (Porcine) (Heparin Sodium (Porcine)) 5,000 units SQ Q8 [facility] Stop: 09/23/18 13:59 Last Admin: 08/25/18 15:41 Dose: 5,000 units Documented by: Promethazine HCl 12.5 mg/ (Sodium Chloride) 50.5 mls @ 202 mls/hr IV Q6H PRN PRN Reason: Nausea And Vomiting Stop: 09/21/18 01:02 Ipratropium [place] (Atrovent 0.02% 0.5mg/2.5ml) 0.5 mg INH Q6R [facility] Stop: 09/21/18 07:59 Last Admin: 08/25/18 14:24 Dose: 0.5 mg Documented by: Levalbuterol HCl (Xopenex 1.25mg/0.5ml Neb) 1.25 mg INH Q6R [facility] Stop: 09/21/18 07:59 Last Admin: 08/25/18 14:24 Dose: 1.25 mg Documented by: Levothyroxine Sodium (Synthroid) 125 mcg PO DAILYBB [facility] Stop: 09/21/18 06:29 Last Admin: 08/25/18 05:13 Dose: 125 mcg Documented by: Metoprolol Tartrate (Lopressor) 25 mg PO BID [facility] Stop: 09/23/18 20:59 Last Admin: 08/25/18 08:13 Dose: 25 mg Documented by: Miscellaneous (Carbohydrates For Hypoglycemia) 15 - 30 gm PO UD PRN PRN Reason: Hypoglycemia Treatment Stop: 09/21/18 01:02 Nitroglycerin (Nitrostat) 0.4 mg SL UD PRN PRN Reason: Chest Pain Stop: 09/21/18 01:02 Pravastatin Sodium (Pravachol) 40 mg PO DAILY [facility] Stop: 09/21/18 08:59 Last Admin: 08/25/18 08:14 Dose: 40 mg Documented by: Sulfadiazine (Azulfidine) 1,000 mg PO BID [facility] Stop: 09/21/18 08:59 Last Admin: 08/25/18 08:14 Dose: 1,000 mg Documented by: Venlafaxine HCl (Effexor Extended Release) 150 mg PO DAILY [facility] Stop: 09/21/18 08:59 Last Admin: 08/25/18 08:14 Dose: 150 mg Documented by:
[2018-08-26] MEDS: LEVALBUTEROL 1.25MG/0.5ML NEB INH SCH ×4 (01:46→19:24)
[2018-08-26] MEDS: IPRATROPIUM BROMIDE NEB SOLN 0.02% 2.5 ML VIAL INH SCH ×4 (01:46→19:24)
[2018-08-26] MEDS: HEPARIN SOD 5,000 UNIT/0.5 ML VIAL SQ SCH ×3 (05:42→21:03)
[2018-08-26] MEDS: LEVOTHYROXINE SODIUM 125 MCG TABLET PO SCH (05:43)
[2018-08-26 07:33] LABS: BUN Creatinine Ratio 25.1 (10-20); Est GFR (African American) 36.9; Est GFR (Non-African American) 31.8; Potassium 4.1 mmol/L (3.5-5.1)
[2018-08-26 07:34] LABS: Hematocrit (blood only) 38.7 % (37-47); Hemoglobin 12.6 g/dL (12.0-16.0); Mean Corpuscular Hgb Conc 32.6 g/dL (32-36); Mean Corpuscular Volume 87.2 fL (80-100); Mean Platelet Volume 11.3 fL (7.4-10.4); Nucleated RBC # (auto) 0.02 K/uL (0-0); Nucleated RBC % (auto) 0.2 %; Platelet Count 192 K/uL (130-400); RDW Coefficient of Variation 15.6 % (11.5-14.5); Red Blood Count 4.44 M/uL (4.2-5.4); White Blood Count 8.25 K/uL (4.8-10.8)
[2018-08-26 07:35] LABS: Basophils # (auto) 0.07 K/uL (0-0.2); Basophils % (auto) 0.8 %; Eosinophils # (auto) 0.03 K/uL (0-0.5); Eosinophils % (auto) 0.4 %; Immature Granulocytes # (auto) 0.14 K/uL (0.00-0.02); Immature Granulocytes % (auto) 1.7 %; Lymphocytes # (auto) 1.51 K/uL (1.2-3.4); Lymphocytes % (auto) 18.3 %; Monocytes # (auto) 0.87 K/uL (0.11-0.59); Monocytes % (auto) 10.5 %; Neutrophils # (auto) 5.63 K/uL (1.4-6.5); Neutrophils % (auto) 68.3 %; Platelet Estimate Normal (Normal)
[2018-08-26] MEDS: AMLODIPINE BESYLATE 5 MG TAB PO SCH (08:44)
[2018-08-26] MEDS: PRAVASTATIN SOD 40 MG TAB PO SCH (08:44)
[2018-08-26] MEDS: VENLAFAXINE HCL XR 150 MG CAPXR PO SCH (08:44)
[2018-08-26] MEDS: METOPROLOL TARTRATE 25 MG TAB PO SCH ×2 (08:44→21:04)
[2018-08-26] MEDS: sulfaSALAzine 500 MG TABLET PO SCH ×2 (08:45→21:03)
[2018-08-26] MEDS: CYANOCOBALAMIN 500 MCG TABLET (VITAMIN B-12) PO SCH (08:45)
[2018-08-26] MEDS: ASPIRIN 81 MG ECTAB PO SCH (08:45)
[2018-08-26] MEDS: CARBIDOPA/LEVODOPA 25/100MG TAB PO SCH ×3 (08:45→21:03)
--- NOTE | 2018-08-26 13:20 | Hospitalist Progress Note ---
Date of Service August 26, 2018 Assessment & Plan (1) Encephalopathy: Secondary to Acute hypoxic, hypercapnic respiratory failure/ Acute CHF exacerbation RENÉ possibly from recent addition of as needed meclizine to [id number] meclizine for worsening vertigo symptoms from Mnire's disease); possible aspiration pneumonitis Hold meclizine and other neuropsychiatric medications for now Clinically much improved today Has been using CPAP at night and advised to use it continuously Awaiting placement ACUTE HYPOXIC HYPERCAPNIC RESPIRATORY FAILURE- Worsening again Multifactorial CHF exacerbation in setting of obesity/RENÉ -US duplex - Neg for DVT, subcutaneous edema in right popliteal fossa, CT chest - No PE, Patchy ground glass opacities, dependent consolidation in lower lobes with left >right lower lobe volume loss. -Continue nasal oxygen -Likely to need to be a step O2 saturation before discharge CHF EXACERBATION Progressive weight gain of 5 kg over the last month/10 kg from 12/2017 on review of outpatient documented weights; possibly from uncontrolled blood pressure ? ability to take home BP meds/wear nighttime CPAP ) Received IV Lasix 40 mg x 1 dose. Held diuretics since 08/22 as creatinine was going up. Not indicated at this time per cardiology CXR- Cardiomegaly with decreasing volume overload and congestive change. Minimal pulmonary edema remains. Poor aeration of left lung base ECHO: Left ventricle is normal, concentric LVH, focal thickening of the basal septum with no evidence of left ventricular outflow obstruction, EF was 55% with septal wall motion is abnormal consistent with underlying conduction delay Appreciate cardiology inputs and recommendations NSTEMI 0.6--> 1.320 -Likely demand ischemia in setting of CHF exacerbation/HTN urgency -High risk for underlying CAD -Continue with aspirin, Metoprolol, IV Heparin therapeutic -Echocardiogram- Bedside in ICU- No wall motion abnormalities noted, Mild LVH -Cardiology on board HYPOKALEMIA/HYPOMAGNESEMIA Resolved Monitor SAM ON CKD III Baseline: 1.3 ; went up to 1.83, now trending down -Holding diuretics since 08/22 after initial diuresis due to creatinine elevation -Holding lisinopril -Creatinine is minimally improved, will continue to hold lisinopril POSSIBLE ASPIRATION PNEUMONITIS -Symptoms more secondary to CHF exacerbation -Discontinued IV antibiotics after 2 days . No indication DM2- HBA1C 5.3 Discontinue ISS, Accuchecks as blood glucose has been stable in 100s with HBA1C only 5.3 PARKINSONS DISEASE Continue with Carbidopa-Levodopa TID No acute exacerbation RHEUMATOID ARTHRITIS No acute arthritis ANXIETY/MOOD DISORDER Effexor 150 mg OBESITY/RENÉ On CPAP at home, was not using for few days prior to admission Continue with BIPAP instead of CPAP overnight. Did not use it yesterday Has been using CPAP at night and feeling better We will continue CPAP for now NUTRITION Taking PO now HARD OF HEARING Doesnt have her hearing aids DVT prophylaxis. Heparin subcutaneous Full code Disposition PT/OT recommends inpatient rehab was updated by bedside- she is not too compliant with CPAP at home Patient's requesting updates from providers Mr. Wesley Hassan, contact #[phone]. Subjective 08/26 The patient was seen and examined in telemetry unit Her medical history significant for hypertension, hyperlipidemia, RENÉ on CPAP, history PE status post anticoagulation, rheumatoid arthritis, Parkinson's disease, Mnire's disease, anxiety/ mood disorder, DM 2 on oral meds, CRI (baseline creatinine 1.3), past tobacco abuse. She was admitted with abnormal breathing and change in mental status She is out of bed on a chair without any symptoms She is not drowsy, not having any complaints and wanted to go home Review of Systems Review of Systems: All systems reviewed and are unremarkable except as noted below. Constitutional: + fatigue and + weakness Neurologic: + generalized weakness Physical Exam Physical Exam: Sitting on a chair without any symptoms Constitutional: well nourished, + ill appearing, + morbidly obese, + altered mental status (Alert and awake), + frail appearing, cooperative and comfortable; no acute distress Eyes: PERRL, conjunctivae normal, anicteric sclerae Respiratory: normal respiratory effort; no cough Auscultation: + diminished lung sounds (decreased BS at bases) and + wheezes; no crackles, no rales and no rhonchi Cardiovascular: Rate/Rhythm: regular rate and regular rhythm Heart Sounds: normal S1, normal S2 and + murmur Extremities: no edema Gastrointestinal (Abdomen): Inspection/Auscultation: abdomen normal to inspe ction and normal bowel sounds; abdomen not distended Percussion/Palpation: abdomen soft; abdomen nontender and no guarding Skin: no rashes, warm and dry Neurologic: PERRL, EOMI, accommodation nl, no face palsy, no dysarthria Lymphatic: no cervical or axillary lymphadenopathy Results & Data Vital Signs (Past 12 Hours) Vital Signs Temp Pulse Pulse Pulse Pulse Resp BP 08/26/18 12:01 36.7 C 52 L 18 124/53 L 08/26/18 08:00 08/26/18 07:06 62 18 08/26/18 07:00 36.6 C 55 L 18 151/61 H 08/26/18 03:05 36.7 C 54 L 20 144/60 H 08/26/18 01:54 55 L 20 08/26/18 01:46 55 L 20 Pulse Ox Pulse Ox 08/26/18 12:01 93 08/26/18 08:00 97 08/26/18 07:06 97 08/26/18 07:00 98 08/26/18 03:05 93 08/26/18 01:54 95 08/26/18 01:46 95 Laboratory Results Short CBC 08/26/18 Range/Units 06:31 WBC 8.25 (4.8-10.8) K/uL Hgb 12.6 (12.0-16.0) g/dL Hct 38.7 (37-47) % Plt Count 192 (130-400) K/uL BMP 08/26/18 06:31 Sodium 139 Potassium 4.1 Chloride 103 Carbon Dioxide 31 BUN 40 H Creatinine 1.61 H Glucose 103 H Calcium 9.0 Medications Administered Current Inpatient Medications Acetaminophen (Tylenol) 650 mg PO Q4H PRN PRN Reason: Pain or Fever Stop: 09/21/18 01:02 Amlodipine Besylate (Norvasc) 5 mg PO DAILY [facility] Stop: 09/21/18 08:59 Last Admin: 08/26/18 08:44 Dose: 5 mg Documented by: Aspirin (Ecotrin Ectab) 81 mg PO QAM [facility] Stop: 09/22/18 08:59 Last Admin: 08/26/18 08:45 Dose: 81 mg Documented by: Carbidopa/Levodopa (Sinemet 25/100 Mg) 1 tab PO TID [facility] Stop: 09/21/18 08:59 Last Admin: 08/26/18 08:45 Dose: 1 tab Documented by: Cyanocobalamin (Vitamin B-12) 1,000 mcg PO DAILY [facility] Stop: 09/21/18 08:59 Last Admin: 08/26/18 08:45 Dose: 1,000 mcg Documented by: Dextrose (Dextrose 50%) 25 - 50 ml IV UD PRN; Protocol PRN Reason: Hypoglycemia Protocol Stop: 09/21/18 01:02 Glucagon (Glucagen) 1 mg SQ UD PRN; Protocol PRN Reason: Hypoglycemia Protocol Stop: 09/21/18 01:02 Glucose (Glucose 40%) 15 - 30 gm PO UD PRN; Protocol PRN Reason: Hypoglycemia Protocol Stop: 09/21/18 01:02 Glucose (Dex4 Glucose) 4 - 8 tabs PO UD PRN; Protocol PRN Reason: Hypoglycemia Protocol Stop: 09/21/18 01:02 Heparin Sodium (Porcine) (Heparin Sodium (Porcine)) 5,000 units SQ Q8 [facility] Stop: 09/23/18 13:59 Last Admin: 08/26/18 05:42 Dose: 5,000 units Documented by: Promethazine HCl 12.5 mg/ (Sodium Chloride) 50.5 mls @ 202 mls/hr IV Q6H PRN PRN Reason: Nausea And Vomiting Stop: 09/21/18 01:02 Ipratropium [place] (Atrovent 0.02% 0.5mg/2.5ml) 0.5 mg INH Q6R [facility] Stop: 09/21/18 07:59 Last Admin: 08/26/18 07:06 Dose: 0.5 mg Documented by: Levalbuterol HCl (Xopenex 1.25mg/0.5ml Neb) 1.25 mg INH Q6R [facility] Stop: 09/21/18 07:59 Last Admin: 08/26/18 07:06 Dose: 1.25 mg Documented by: Levothyroxine Sodium (Synthroid) 125 mcg PO DAILYBB [facility] Stop: 09/21/18 06:29 Last Admin: 08/26/18 05:43 Dose: 125 mcg Documented by: Metoprolol Tartrate (Lopressor) 25 mg PO BID [facility] Stop: 09/23/18 20:59 Last Admin: 08/26/18 08:44 Dose: 25 mg Documented by: Miscellaneous (Carbohydrates For Hypoglycemia) 15 - 30 gm PO UD PRN PRN Reason: Hypoglycemia Treatment Stop: 09/21/18 01:02 Nitroglycerin (Nitrostat) 0.4 mg SL UD PRN PRN Reason: Chest Pain Stop: 09/21/18 01:02 Pravastatin Sodium (Pravachol) 40 mg PO DAILY [facility] Stop: 09/21/18 08:59 Last Admin: 08/26/18 08:44 Dose: 40 mg Documented by: Sulfadiazine (Azulfidine) 1,000 mg PO BID [facility] Stop: 09/21/18 08:59 Last Admin: 08/26/18 08:45 Dose: 1,000 mg Documented by: Venlafaxine HCl (Effexor Extended Release) 150 mg PO DAILY [facility] Stop: 09/21/18 08:59 Last Admin: 08/26/18 08:44 Dose: 150 mg Documented by:
[2018-08-27] MEDS: IPRATROPIUM BROMIDE NEB SOLN 0.02% 2.5 ML VIAL INH SCH ×4 (02:40→19:31)
[2018-08-27] MEDS: LEVALBUTEROL 1.25MG/0.5ML NEB INH SCH ×4 (02:41→19:30)
[2018-08-27] MEDS: LEVOTHYROXINE SODIUM 125 MCG TABLET PO SCH (06:00)
[2018-08-27] MEDS: HEPARIN SOD 5,000 UNIT/0.5 ML VIAL SQ SCH ×3 (06:00→20:59)
[2018-08-27 06:29] LABS: Basophils # (auto) 0.02 K/uL (0-0.2); Basophils % (auto) 0.2 %; Hematocrit (blood only) 37.5 % (37-47); Hemoglobin 11.5 g/dL (12.0-16.0); Immature Granulocytes # (auto) 0.06 K/uL (0.00-0.02); Immature Granulocytes % (auto) 0.7 %; Lymphocytes # (auto) 1.25 K/uL (1.2-3.4); Lymphocytes % (auto) 14.9 %; Mean Corpuscular Hgb Conc 30.7 g/dL (32-36); Mean Corpuscular Volume 88.2 fL (80-100); Mean Platelet Volume 11.1 fL (7.4-10.4); Monocytes # (auto) 1.03 K/uL (0.11-0.59); Monocytes % (auto) 12.2 %; Neutrophils # (auto) 6.05 K/uL (1.4-6.5); Platelet Count 200 K/uL (130-400); RDW Coefficient of Variation 15.5 % (11.5-14.5); RDW Standard Deviation 49.5 fL (36.4-46.3); Red Blood Count 4.25 M/uL (4.2-5.4); White Blood Count 8.41 K/uL (4.8-10.8)
[2018-08-27 07:06] LABS: BUN Creatinine Ratio 27.7 (10-20); Calcium 8.9 mg/dl (8.5-10.1); Creatinine Clr Calc Pharmacy 38.3 ml/min; Est GFR (African American) 37.8; Est GFR (Non-African American) 32.6; Magnesium 2.5 mg/dl (1.8-2.4); Potassium 4.1 mmol/L (3.5-5.1)
[2018-08-27] MEDS: AMLODIPINE BESYLATE 5 MG TAB PO SCH (08:57)
[2018-08-27] MEDS: CYANOCOBALAMIN 500 MCG TABLET (VITAMIN B-12) PO SCH (08:57)
[2018-08-27] MEDS: VENLAFAXINE HCL XR 150 MG CAPXR PO SCH (08:58)
[2018-08-27] MEDS: PRAVASTATIN SOD 40 MG TAB PO SCH (08:58)
[2018-08-27] MEDS: sulfaSALAzine 500 MG TABLET PO SCH ×2 (08:58→20:58)
[2018-08-27] MEDS: CARBIDOPA/LEVODOPA 25/100MG TAB PO SCH ×3 (08:59→20:58)
[2018-08-27] MEDS: ASPIRIN 81 MG ECTAB PO SCH (08:59)
[2018-08-27] MEDS: METOPROLOL TARTRATE 25 MG TAB PO SCH ×3 (09:00→20:59)
--- NOTE | 2018-08-27 15:23 | Hospitalist Progress Note ---
Date of Service August 27, 2018 Assessment & Plan (1) Encephalopathy: Secondary to Acute hypoxic, hypercapnic respiratory failure/ Acute CHF exacerbation RENÉ possibly from recent addition of as needed meclizine to [id number] meclizine for worsening vertigo symptoms from Mnire's disease); possible aspiration pneumonitis Hold meclizine and other neuropsychiatric medications for now Clinically much improved today Has been using CPAP at night and advised to use it continuously Denies any acute symptoms Awaiting placement ACUTE HYPOXIC HYPERCAPNIC RESPIRATORY FAILURE- Worsening again Multifactorial CHF exacerbation in setting of obesity/RENÉ -US duplex - Neg for DVT, subcutaneous edema in right popliteal fossa, CT chest - No PE, Patchy ground glass opacities, dependent consolidation in lower lobes with left >right lower lobe volume loss. -Continue nasal oxygen -Likely to need to be a step O2 saturation before discharge CHF EXACERBATION Progressive weight gain of 5 kg over the last month/10 kg from 12/2017 on review of outpatient documented weights; possibly from uncontrolled blood pressure ? ability to take home BP meds/wear nighttime CPAP ) Received IV Lasix 40 mg x 1 dose. Held diuretics since 08/22 as creatinine was going up. Not indicated at this time per cardiology CXR- Cardiomegaly with decreasing volume overload and congestive change. Minimal pulmonary edema remains. Poor aeration of left lung base ECHO: Left ventricle is normal, concentric LVH, focal thickening of the basal septum with no evidence of left ventricular outflow obstruction, EF was 55% with septal wall motion is abnormal consistent with underlying conduction delay Appreciate cardiology inputs and recommendations NSTEMI 0.6--> 1.320 -Likely demand ischemia in setting of CHF exacerbation/HTN urgency -High risk for underlying CAD -Continue with aspirin, Metoprolol, IV Heparin therapeutic -Echocardiogram- Bedside in ICU- No wall motion abnormalities noted, Mild LVH -Cardiology on board Hypertension Blood pressure seems to be increased She is off her lisinopril We will start a small dose of hydralazine as it cannot increase the dose of beta-lucho due to bradycardia and amlodipine due to side effect HYPOKALEMIA/HYPOMAGNESEMIA Resolved Monitor SAM ON CKD III Baseline: 1.3 ; went up to 1.83, now trending down -Holding diuretics since 08/22 after initial diuresis due to creatinine elevation -Holding lisinopril -Creatinine is minimally improved, will continue to hold lisinopril -Creatinine is improved to 1.58 POSSIBLE ASPIRATION PNEUMONITIS -Symptoms more secondary to CHF exacerbation -Discontinued IV antibiotics after 2 days . No indication DM2- HBA1C 5.3 Discontinue ISS, Accuchecks as blood glucose has been stable in 100s with HBA1C only 5.3 PARKINSONS DISEASE Continue with Carbidopa-Levodopa TID No acute exacerbation RHEUMATOID ARTHRITIS No acute arthritis ANXIETY/MOOD DISORDER Effexor 150 mg OBESITY/RENÉ On CPAP at home, was not using for few days prior to admission Continue with BIPAP instead of CPAP overnight. Did not use it yesterday Has been using CPAP at night and feeling better We will continue CPAP for now NUTRITION Taking PO now HARD OF HEARING Doesnt have her hearing aids DVT prophylaxis. Heparin subcutaneous Full code Disposition PT/OT recommends inpatient rehab was updated by bedside- she is not too compliant with CPAP at home Patient's requesting updates from providers Mr. Wesley Hassan, contact #[phone]. Subjective 08/26 The patient was seen and examined in telemetry unit Her medical history significant for hypertension, hyperlipidemia, RENÉ on CPAP, history PE status post anticoagulation, rheumatoid arthritis, Parkinson's disease, Mnire's disease, anxiety/ mood disorder, DM 2 on oral meds, CRI (baseline creatinine 1.3), past tobacco abuse. She was admitted with abnormal breathing and change in mental status She is out of bed on a chair without any symptoms She is not drowsy, not having any complaints and wanted to go home 08/27 The patient was seen and examined in telemetry unit She has been feeling a lot better Her only complains of weakness and tiredness She has been waiting for placement Review of Systems Review of Systems: All systems reviewed and are unremarkable except as noted below. Constitutional: + fatigue and + weakness Neurologic: + generalized weakness Physical Exam Physical Exam: No apparent distress at rest, sitting on a chair out of bed Constitutional: well nourished, + ill appearing, + morbidly obese, cooperative and comfortable; no acute distress Eyes: PERRL, conjunctivae normal, anicteric sclerae Respiratory: normal respiratory effort, lungs clear to auscultation normal respiratory effort; no cough Auscultation: + diminished lung sounds (dec reased BS at bases) and + wheezes; no crackles, no rales and no rhonchi Cardiovascular: RRR, no murmur, no edema Rate/Rhythm: regular rate and regular rhythm Heart Sounds: normal S1, normal S2 and + murmur Vessels: no JVD Extremities: no edema Gastrointestinal (Abdomen): normal bowel sounds, soft, nontender, no hepatosplenomegaly Inspection/Auscultation: abdomen normal to inspection and normal bowel sounds; abdomen not distended Percussion/Palpation: abdomen soft; abdomen nontender and no guarding Musculoskeletal: No acute arthritis involving any of the joint Skin: no rashes, warm and dry Neurologic: PERRL, EOMI, accommodation nl, no face palsy, no dysarthria Lymphatic: no cervical or axillary lymphadenopathy Results & Data Vital Signs (Past 12 Hours) Vital Signs Temp Pulse Pulse Resp BP BP Pulse Ox 08/27/18 13:29 55 L 18 98 08/27/18 11:03 37.0 C 63 20 190/82 H 98 08/27/18 07:35 51 L 08/27/18 07:14 59 L 18 97 08/27/18 07:05 36.9 C 54 L 16 148/76 H 94 Laboratory Results Short CBC 08/27/18 Range/Units 06:12 WBC 8.41 (4.8-10.8) K/uL Hgb 11.5 L (12.0-16.0) g/dL Hct 37.5 (37-47) % Plt Count 200 (130-400) K/uL BMP 08/27/18 06:12 Sodium 141 Potassium 4.1 Chloride 106 Carbon Dioxide 30 BUN 44 H Creatinine 1.58 H Glucose 111 H Calcium 8.9 Medications Administered Current Inpatient Medications Acetaminophen (Tylenol) 650 mg PO Q4H PRN PRN Reason: Pain or Fever Stop: 09/21/18 01:02 Amlodipine Besylate (Norvasc) 5 mg PO DAILY [facility] Stop: 09/21/18 08:59 Last Admin: 08/27/18 08:57 Dose: 5 mg Documented by: Aspirin (Ecotrin Ectab) 81 mg PO QAM [facility] Stop: 09/22/18 08:59 Last Admin: 08/27/18 08:59 Dose: 81 mg Documented by: Carbidopa/Levodopa (Sinemet 25/100 Mg) 1 tab PO TID [facility] Stop: 09/21/18 08:59 Last Admin: 08/27/18 08:59 Dose: 1 tab Documented by: Cyanocobalamin (Vitamin B-12) 1,000 mcg PO DAILY [facility] Stop: 09/21/18 08:59 Last Admin: 08/27/18 08:57 Dose: 1,000 mcg Documented by: Dextrose (Dextrose 50%) 25 - 50 ml IV UD PRN; Protocol PRN Reason: Hypoglycemia Protocol Stop: 09/21/18 01:02 Glucagon (Glucagen) 1 mg SQ UD PRN; Protocol PRN Reason: Hypoglycemia Protocol Stop: 09/21/18 01:02 Glucose (Glucose 40%) 15 - 30 gm PO UD PRN; Protocol PRN Reason: Hypoglycemia Protocol Stop: 09/21/18 01:02 Glucose (Dex4 Glucose) 4 - 8 tabs PO UD PRN; Protocol PRN Reason: Hypoglycemia Protocol Stop: 09/21/18 01:02 Heparin Sodium (Porcine) (Heparin Sodium (Porcine)) 5,000 units SQ Q8 [facility] Stop: 09/23/18 13:59 Last Admin: 08/27/18 06:00 Dose: 5,000 units Documented by: Promethazine HCl 12.5 mg/ (Sodium Chloride) 50.5 mls @ 202 mls/hr IV Q6H PRN PRN Reason: Nausea And Vomiting Stop: 09/21/18 01:02 Ipratropium [place] (Atrovent 0.02% 0.5mg/2.5ml) 0.5 mg INH Q6R [facility] Stop: 09/21/18 07:59 Last Admin: 08/27/18 13:29 Dose: 0.5 mg Documented by: Levalbuterol HCl (Xopenex 1.25mg/0.5ml Neb) 1.25 mg INH Q6R [facility] Stop: 09/21/18 07:59 Last Admin: 08/27/18 13:29 Dose: 1.25 mg Documented by: Levothyroxine Sodium (Synthroid) 125 mcg PO DAILYBB [facility] Stop: 09/21/18 06:29 Last Admin: 08/27/18 06:00 Dose: 125 mcg Documented by: Metoprolol Tartrate (Lopressor) 25 mg PO BID [facility] Stop: 09/23/18 20:59 Last Admin: 08/27/18 11:15 Dose: 25 mg Documented by: Miscellaneous (Carbohydrates For Hypoglycemia) 15 - 30 gm PO UD PRN PRN Reason: Hypoglycemia Treatment Stop: 07/08/19 01:02 Nitroglycerin (Nitrostat) 0.4 mg SL UD PRN PRN Reason: Chest Pain Stop: 09/21/18 01:02 Pravastatin Sodium (Pravachol) 40 mg PO DAILY [facility] Stop: 09/21/18 08:59 Last Admin: 08/27/18 08:58 Dose: 40 mg Documented by: Sulfadiazine (Azulfidine) 1,000 mg PO BID [facility] Stop: 09/21/18 08:59 Last Admin: 08/27/18 08:58 Dose: 1,000 mg Documented by: Venlafaxine HCl (Effexor Extended Release) 150 mg PO DAILY [facility] Stop: 09/21/18 08:59 Last Admin: 08/27/18 08:58 Dose: 150 mg Documented by:
[2018-08-28] MEDS: LEVALBUTEROL 1.25MG/0.5ML NEB INH SCH ×2 (02:07→07:02)
[2018-08-28] MEDS: IPRATROPIUM BROMIDE NEB SOLN 0.02% 2.5 ML VIAL INH SCH ×2 (02:07→07:02)
[2018-08-28] MEDS: LEVOTHYROXINE SODIUM 125 MCG TABLET PO SCH (06:12)
[2018-08-28] MEDS: HEPARIN SOD 5,000 UNIT/0.5 ML VIAL SQ SCH ×2 (06:12→13:24)
[2018-08-28 07:15] LABS: Hematocrit (blood only) 38.6 % (37-47); Mean Corpuscular Hgb Conc 31.1 g/dL (32-36); Mean Corpuscular Volume 88.7 fL (80-100); Mean Platelet Volume 11.3 fL (7.4-10.4); Platelet Count 208 K/uL (130-400); RDW Coefficient of Variation 15.2 % (11.5-14.5); RDW Standard Deviation 49.6 fL (36.4-46.3); Red Blood Count 4.35 M/uL (4.2-5.4); White Blood Count 8.79 K/uL (4.8-10.8)
[2018-08-28 07:47] LABS: BUN Creatinine Ratio 27.9 (10-20); Calcium 9.4 mg/dl (8.5-10.1); Creatinine Clr Calc Pharmacy 44.1 ml/min; Est GFR (African American) 44.9; Est GFR (Non-African American) 38.7; Potassium 4.1 mmol/L (3.5-5.1)
[2018-08-28] MEDS: ASPIRIN 81 MG ECTAB PO SCH (08:55)
[2018-08-28] MEDS: sulfaSALAzine 500 MG TABLET PO SCH (08:55)
[2018-08-28] MEDS: CARBIDOPA/LEVODOPA 25/100MG TAB PO SCH ×2 (08:56→13:24)
[2018-08-28] MEDS: METOPROLOL TARTRATE 25 MG TAB PO SCH (08:56)
[2018-08-28] MEDS: PRAVASTATIN SOD 40 MG TAB PO SCH (08:56)
[2018-08-28] MEDS: VENLAFAXINE HCL XR 150 MG CAPXR PO SCH (08:56)
[2018-08-28] MEDS: AMLODIPINE BESYLATE 5 MG TAB PO SCH (08:57)
[2018-08-28] MEDS: CYANOCOBALAMIN 500 MCG TABLET (VITAMIN B-12) PO SCH (08:57)
[2018-08-28 11:00] VITALS: BP 132/61; PULSE 60; TEMP 98.8; O2SAT 96
--- NOTE | 2018-08-28 12:11 | Hospitalist Progress Note ---
Date of Service August 28, 2018 Assessment & Plan (1) Encephalopathy: Secondary to Acute hypoxic, hypercapnic respiratory failure/ Acute CHF exacerbation RENÉ possibly from recent addition of as needed meclizine to [id number] meclizine for worsening vertigo symptoms from Mnire's disease); possible aspiration pneumonitis Hold meclizine and other neuropsychiatric medications for now Clinically much improved today Has been using CPAP at night and advised to use it continuously Denies any acute symptoms Seems to be at her baseline [facility] be [facility] ACUTE HYPOXIC HYPERCAPNIC RESPIRATORY FAILURE- Worsening again Multifactorial CHF exacerbation in setting of obesity/RENÉ -US duplex - Neg for DVT, subcutaneous edema in right popliteal fossa, CT chest - No PE, Patchy ground glass opacities, dependent consolidation in lower lobes with left >right lower lobe volume loss. -Continue nasal oxygen -Likely to need to be a step O2 saturation before discharge -Strongly advised to continue CPAP at nighttime and oxygen as needed CHF EXACERBATION Progressive weight gain of 5 kg over the last month/10 kg from 12/2017 on review of outpatient documented weights; possibly from uncontrolled blood pressure ? ability to take home BP meds/wear nighttime CPAP ) Received IV Lasix 40 mg x 1 dose. Held diuretics since 08/22 as creatinine was going up. Not indicated at this time per cardiology CXR- Cardiomegaly with decreasing volume overload and congestive change. Minimal pulmonary edema remains. Poor aeration of left lung base ECHO: Left ventricle is normal, concentric LVH, focal thickening of the basal septum with no evidence of left ventricular outflow obstruction, EF was 55% with septal wall motion is abnormal consistent with underlying conduction delay Appreciate cardiology inputs and recommendations NSTEMI 0.6--> 1.320 -Likely demand ischemia in setting of CHF exacerbation/HTN urgency -High risk for underlying CAD -Continue with aspirin, Metoprolol, IV Heparin therapeutic -Echocardiogram- Bedside in ICU- No wall motion abnormalities noted, Mild LVH -Cardiology on board Hypertension Blood pressure seems to be increased She is off her lisinopril We will start a small dose of hydralazine as it cannot increase the dose of beta-lucho due to bradycardia and amlodipine due to side effect Blood pressure seems to be under control HYPOKALEMIA/HYPOMAGNESEMIA Resolved Monitor SAM ON CKD III Baseline: 1.3 ; went up to 1.83, now trending down -Holding diuretics since 08/22 after initial diuresis due to creatinine elevation -Holding lisinopril -Creatinine is minimally improved, will continue to hold lisinopril -Creatinine is improved to 1. 3 7 POSSIBLE ASPIRATION PNEUMONITIS -Symptoms more secondary to CHF exacerbation -Discontinued IV antibiotics after 2 days . No indication DM2- HBA1C 5.3 Discontinue ISS, Accuchecks as blood glucose has been stable in 100s with HBA1C only 5.3 PARKINSONS DISEASE Continue with Carbidopa-Levodopa TID No acute exacerbation RHEUMATOID ARTHRITIS No acute arthritis ANXIETY/MOOD DISORDER Effexor 150 mg OBESITY/RENÉ On CPAP at home, was not using for few days prior to admission Continue with BIPAP instead of CPAP overnight. Did not use it yesterday Has been using CPAP at night and feeling better We will continue CPAP for now NUTRITION Taking PO now HARD OF HEARING Doesnt have her hearing aids DVT prophylaxis. Heparin subcutaneous Full code Disposition PT/OT recommends inpatient rehab Discussed with the at bedside We will transfer the patient [facility] today Advised to continue with CPAP at nighttime Subjective 08/26 The patient was seen and examined in telemetry unit Her medical history significant for hypertension, hyperlipidemia, RENÉ on CPAP, history PE status post anticoagulation, rheumatoid arthritis, Parkinson's disease, Mnire's disease, anxiety/ mood disorder, DM 2 on oral meds, CRI (baseline creatinine 1.3), past tobacco abuse. She was admitted with abnormal breathing and change in mental status She is out of bed on a chair without any symptoms She is not drowsy, not having any complaints and wanted to go home 08/27 The patient was seen and examined in telemetry unit She has been feeling a lot better Her only complains of weakness and tiredness She has been waiting for placement 08/28 The patient was seen and examined in telemetry unit in presence of the She complains to have some left eye irritation but denies any other symptoms She is generally weak and lethargy Review of Systems Review of Systems: All systems reviewed and are unremarkable except as noted below. Constitutional: + fatigue and + weakness Eyes: + dry eyes and + itchy eyes; no discharge Neurologic: + generalized weakness Physical Exam Physical Exam: No apparent distress at rest Constitutional: well nourished, + ill appearing, + morbidly obese, cooperative and comfortable; no acute distress Eyes: + eyelid abnormality (Redness and swelling of left eyelids likely secondary to allergy.) Respiratory: normal respiratory effort; no cough Auscultation: + diminished lung sounds (decreased BS at bases) and + wheezes; no crackles, no rales and no rhonchi Cardiovascular: Rate/Rhythm: regular rate and regular rhythm Heart Sounds: normal S1, normal S2 and + murmur Vessels: no JVD Extremities: no edema Gastrointestinal (Abdomen): normal bowel sounds, soft, nontender, no hepatosplenomegaly Inspection/Auscultation: abdomen normal to inspection and normal bowel sounds; abdomen not distended Percussion/Palpation: abdomen soft; abdomen nontender and no guarding Musculoskeletal: No acute arthritis in any joint Skin: no rashes, warm and dry Neurologic: Alert, awake. Pleasantly confused general weakness with any focal neuro deficit. Lymphatic: no cervical or axillary lymphadenopathy Results & Data Vital Signs (Past 12 Hours) Vital Signs Temp Pulse Pulse Resp BP BP Pulse Ox 08/28/18 10:58 37.1 C 60 19 132/61 96 08/28/18 07:20 56 L 08/28/18 07:10 36.5 C 62 19 166/74 H 95 08/28/18 07:02 54 L 18 95 08/28/18 03:50 37.2 C 56 L 18 174/84 H 94 08/28/18 02:07 67 18 92
--- NOTE | 2018-08-29 07:55 | Discharge Summary ---
Date of Service August 29, 2018 Admission HPI Per Admitting Provider History obtained from patient, family, and records. Limited history from patient secondary to hearing impairment and disorientation. Medical history significant for hypertension, hyperlipidemia, RENÉ on CPAP, history PE status post anticoagulation, rheumatoid arthritis, Parkinson's disease, Mnire's disease, anxiety/ mood disorder, DM 2 on oral meds, CRI (baseline creatinine 1.3), past tobacco abuse. Recent confinement November 2017 for multifactorial weakness. Patient seen at PCPs office about 3 weeks ago for pounding headache, and dizzy spells described as vertigo-like. Increased bilateral leg swelling for 1 month as per outpatient note. Meclizine as needed added to patient's twice daily Betahistine. Patient does not think patient taking a lot of as needed meclizine. Outpatient ENT/balance center evaluation contemplated. [place] [facility] [place] for hearing issues and other concerns. The last few days, patient's noted some change in behavior, patient more confused than usual. Not wearing her BiPAP at night which is unusual as per . Patient not sure if patient able to take home meds. Some junky cough symptoms noted. Patient noted to be more sleepy today. Breathing somewhat labored. Increase bilateral leg swelling the last few weeks, hx recent outpatient left knee joint aspiration as per . At the ER, patient noted to be hypoxemic. NSS, IV Cefepime given at the ER. BiPAP initiated at the ER. 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, lives with Admission Exam Per Admitting Provider GENERAL: Lethargic, hard of hearing, obese, no respiratory distress SKIN: Normal color, warm HEENT: [place] palpebral conjunctivae, no ptosis, dry buccal mucosa, BiPAP in place NECK : Supple, short, no tenderness CHEST : Bibasilar crackles, no tenderness HEART : RRR, systolic murmur ABDOMEN: Some distention, nontender EXTREMITIES : Bilateral LE swelling, no LE tenderness, no other conspicuous deformities noted NEUROLOGIC : Lethargic, hard of hearing, no facial asymmetry, gait and stance not assessed Principal Diagnosis Acute respiratory failure, RENÉ on CPAP, NSTEM, CHF, CKD Discharge Exam Constitutional well nourished, + ill appearing, + morbidly obese, cooperative and comfortable; no acute distress Eyes PERRL, conjunctivae normal, anicteric sclerae + eyelid abnormality (Redness and swelling of left eyelids likely secondary to allergy.) Respiratory normal respiratory effort, lungs clear to auscultation normal respiratory effort; no cough Auscultation: + diminished lung sounds (decreased BS at bases) and + wheezes; no crackles, no rales and no rhonchi Cardiovascular RRR, no murmur, no edema Rate/Rhythm: regular rate and regular rhythm Heart Sounds: normal S1, normal S2 and + murmur Vessels: no JVD Extremities: no edema Gastrointestinal (Abdomen) normal bowel sounds, soft, nontender, no hepatosplenomegaly Inspection/Auscultation: abdomen normal to inspection and normal bowel sounds; abdomen not distended Percussion/Palpation: abdomen soft; abdomen nontender and no guarding Skin no rashes, warm and dry Neurologic PERRL, EOMI, accommodation nl, no face palsy, no dysarthria Lymphatic no cervical or axillary lymphadenopathy Discharge Data Allergies Allergy/AdvReac Type Severity Reaction Status Date / Time No Known Allergies Allergy Verified 08/21/18 23:03 Consultations 08/21/18 22:37 ED Decision to Admit Stat 08/22/18 01:03 Consult Cardiology Routine Consult Case Management - Discharge Planning Routine 08/22/18 04:33 Consult Case Management - Discharge Planning Routine 08/22/18 04:43 Consult Automated Weaver Routine Ordered Studies 08/21/18 21:27 CT head/brain wo con Stat 08/21/18 23:44 CT angio chest PE protocol Urgent US venous doppler LE Urgent 08/25/18 13:26 MR brain wo con Routine Hospital Course (1) Encephalopathy: Secondary to Acute hypoxic, hypercapnic respiratory failure/ Acute CHF exacerbation RENÉ possibly from recent addition of as needed meclizine to [id number] meclizine for worsening vertigo symptoms from Mnire's disease); possible aspiration pneumonitis Hold meclizine and other neuropsychiatric medications for now Clinically much improved today Has been using CPAP at night and advised to use it continuously Denies any acute symptoms Seems to be at her baseline [facility] be [facility] ACUTE HYPOXIC HYPERCAPNIC RESPIRATORY FAILURE- Worsening again Multifactorial CHF exacerbation in setting of obesity/RENÉ -US duplex - Neg for DVT, subcutaneous edema in right popliteal fossa, CT chest - No PE, Patchy ground glass opacities, dependent consolidation in lower lobes with left >right lower lobe volume loss. -Continue nasal oxygen -Likely to need to be a step O2 saturation before discharge -Strongly advised to continue CPAP at nighttime and oxygen as needed CHF EXACERBATION Progressive weight gain of 5 kg over the last month/10 kg from 12/2017 on review of outpatient documented weights; possibly from uncontrolled blood pressure ? ability to take home BP meds/wear nighttime CPAP ) Received IV Lasix 40 mg x 1 dose. Held diuretics since 08/22 as creatinine was going up. Not indicated at this time per cardiology CXR- Cardiomegaly with decreasing volume overload and congestive change. Minimal pulmonary edema remains. Poor aeration of left lung base ECHO: Left ventricle is normal, concentric LVH, focal thickening of the basal septum with no evidence of left ventricular outflow obstruction, EF was 55% with septal wall motion is abnormal consistent with underlying conduction delay Appreciate cardiology inputs and recommendations NSTEMI 0.6--> 1.320 -Likely demand ischemia in setting of CHF exacerbation/HTN urgency -High risk for underlying CAD -Continue with aspirin, Metoprolol, IV Heparin therapeutic -Echocardiogram- Bedside in ICU- No wall motion abnormalities noted, Mild LVH -Cardiology on board Hypertension Blood pressure seems to be increased She is off her lisinopril We will start a small dose of hydralazine as it cannot increase the dose of beta-lucho due to bradycardia and amlodipine due to side effect Blood pressure seems to be under control HYPOKALEMIA/HYPOMAGNESEMIA Resolved Monitor SAM ON CKD III Baseline: 1.3 ; went up to 1.83, now trending down -Holding diuretics since 08/22 after initial diuresis due to creatinine elevation -Holding lisinopril -Creatinine is minimally improved, will continue to hold lisinopril -Creatinine is improved to 1. 3 7 POSSIBLE ASPIRATION PNEUMONITIS -Symptoms more secondary to CHF exacerbation -Discontinued IV antibiotics after 2 days . No indication DM2- HBA1C 5.3 Discontinue ISS, Accuchecks as blood glucose has been stable in 100s with HBA1C only 5.3 PARKINSONS DISEASE Continue with Carbidopa-Levodopa TID No acute exacerbation RHEUMATOID ARTHRITIS No acute arthritis ANXIETY/MOOD DISORDER Effexor 150 mg OBESITY/RENÉ On CPAP at home, was not using for few days prior to admission Continue with BIPAP instead of CPAP overnight. Did not use it yesterday Has been using CPAP at night and feeling better We will continue CPAP for now NUTRITION Taking PO now HARD OF HEARING Doesnt have her hearing aids DVT prophylaxis. Heparin subcutaneous Full code Disposition PT/OT recommends inpatient rehab Discussed with the at bedside We will transfer the patient to [facility] today Advised to continue with CPAP at nighttime Total Time Total Time Spent Total Time Spent (In Minutes): 35 minutes Total Time Includes: Examination of the Patient, Discharge Planning, Medication Reconciliation and Communication With Other Providers Discharge Plan Discharge Items Patient Disposition: Transfer Longterm Fac Reason For Visit: RESP FAILURE Discharge Diagnosis: Acute respiratory failure, RENÉ on CPAP, NSTEM, CHF, CKD Condition: Fair Discharge Goals: Decrease discomfort, Improve function and Increase independence Activity: Resume your previous activity Non-emergency contact: Primary Care Provider Call non-emergency contact if: you have any medication questions and your symptoms worsen Follow-up/Referrals: Marcella Mondragon MD [Primary Care Provider] - 09/04/18 11:05 am Diet: Carb Consistent or DM2, Heart Healthy and Low Potassium (2gm) Fluids: 1500ml (6 cups) Addtl Provider Instructions: Please take precaution to avoid fall. Continue with physical therapy. Continue oxygen as needed. Strongly advised to continue CPAP at nighttime Prescriptions: New hydralazine 25 mg Tablet 25 mg PO TID 30 Days Qty: 90 RF: 0 metoprolol tartrate 25 mg Tablet 25 mg PO BID 30 Days Qty: 60 RF: 0 Lyrica 200 mg capsule 200 mg PO BID Qty: 60 RF: 0 Continued aspirin 81 mg Tablet,Delayed Release (Dr/Ec) 81 mg PO DAILY RF: 0 sulfasalazine 500 mg Tablet 1,000 mg PO BID RF: 0 pravastatin [Pravachol] 40 mg Tablet 40 mg PO DAILY RF: 0 Betahistine Hydrochloride 16 mg PO BID RF: 0 metformin 500 mg Tablet 500 mg PO DAILY RF: 0 venlafaxine 150 mg capsule,extended release 24hr 150 mg PO DAILY RF: 0 amlodipine 5 mg tablet 5 mg PO DAILY RF: 0 oxybutynin chloride 5 mg tablet extended release 24hr 5 mg PO DAILY RF: 0 carbidopa-levodopa 25-100 mg tablet 1 tab PO TID RF: 0 ropinirole 4 mg tablet extended release 24 hr 4 mg PO HS RF: 0 meclizine 25 mg Tablet 25 mg PO TID PRN (Reason: Dizziness) RF: 0 melatonin 10 mg Capsule 10 mg PO HS RF: 0 cyanocobalamin (vitamin B-12) [Vitamin B-12] 1,000 mcg Tablet 1,000 mcg PO DAILY RF: 0 levothyroxine 125 mcg tablet 125 mcg PO QAM RF: 0 terazosin 10 mg capsule 10 mg PO DIRECTED RF: 0 Lyrica 200 mg capsule 200 mg PO BID 10 Days Qty: 20 RF: 0 Discontinued lisinopril 10 mg Tablet 10 mg PO DAILY RF: 0 Stand-Alone Forms: [facility] Discharge Orders: Discharge Order (Routine); Ordered 08/28/18 Ordered By: Afua Sousa Skilled Items Patient informed of condition?: Yes DNR: No Discharge Level of Care: Skilled Communicable Disease: No Discharge Prognosis: Stable Admission Data Admit Date/Time: 08/21/18 23:34 Attending Provider: Afua Sousa Admit Provider: Hollis Galaviz Primary Care Provider: Marcella Mondragon Other Providers: Hollis Galaviz ; Zurdo Diop ; Carmine Schaefer ; Leanne Barr Service: Telemetry Other Interventions: Discharge Summary Assessment (RN) Last Done: 08/28/18 12:31 DC Date/Time DO NOT enter until pt leaves facility: 08/28/18 14:01
--- NOTE | 2018-09-01 08:37 | Coding Query ---
CODING QUERY To promote full compliance with coding requirements relating to patient care, provider participation is requested in all cases of dye jig operator uncertainty. Please assist us with the question(s) below: Coding Question(s): There is documentation of NSTEMI in the record and NSTEMI is on Discharge Summary as one of the diagnosis listed in the Principal Diagnosis area. The Hospital Course on the Discharge Summary lists the NSTEMI and documents likely demand ischemia in setting of CHF exacerbation/HTN urgency and the Cardiology Consultation on 08/22/18 documents NSTEMI with documentation of, at this time, it appears that this is a type 2 event due to underlying hypoxia and increased myocardial demand rather than an acute intracoronary plaque rupture. Please clarify below, in your clinical opinion, regarding the NSTEMI. ( + ) NSTEMI ( ) NSTEMI is Type 2 ME (ME due to demand ischemia) Physician's Response(s): Thank you Amairani Jimenez Principal Diagnosis: "that condition established after study, to be chiefly responsible for occasioning the admission of the patient to the hospital for care." Co-Existing Principal Diagnosis: "when two or more diagnoses equally meet the criteria for principal diagnosis as determined by the circumstances of admission, diagnostic work up, and/or therapy provided, and the Alphabetic Index, Tabular List, or another coding guideline does not provide sequencing direction, any one of the diagnoses may be sequenced first." "When the physician has documented what appears to be a current diagnosis in the body of the record, but has not included the diagnosis in the final diagnostic statement, the physician should be asked whether the diagnosis should be added." (Source Coding [facility] 2 QTR90. p3-4) BRENDA
== END 2018-08-28 14:01 | DRG 280 ==
LOC: ED 20:53 → SUATTDRO 23:34 → 2E 23:34 → 1E 08-22 04:30 → 2E 08-23 10:41

== ENCOUNTER 2018-11-18 13:42 | Inpatient (IN) ==
[2018-11-18] MEDS ORDERED: FUROSEMIDE 40 MG/4 ML VIAL IV STA (14:19)
--- NOTE | 2018-11-18 14:42 | XRay Report ---
XR chest 1V portable HISTORY: Dyspnea COMPARISON: Chest 08/25/2018. FINDINGS: No pneumothorax. The heart remains enlarged. Progressive interstitial and vascular thickeni ng consistent with moderate pulmonary edema. Suspect small bilateral pleural effusions. IMPRESSION: Interval progression of the moderate pulmonary edema. Electronically signed by: Carlos Jenkins M.D. 11/18/2018 2:40 PM
[2018-11-18 14:53] LABS: Base Excess VBG -4.6 mEq/L; Oxygen Saturation VBG 82.7 %; pH VBG 7.29 (7.36-7.41)
[2018-11-18 14:54] LABS: Basophils # (auto) 0.06 K/uL (0-0.2); Hemoglobin 8.9 g/dL (12.0-16.0); Immature Granulocytes # (auto) 0.03 K/uL (0.00-0.02); Immature Granulocytes % (auto) 0.5 %; Lymphocytes # (auto) 0.93 K/uL (1.2-3.4); Lymphocytes % (auto) 16.2 %; Mean Corpuscular Hemoglobin 28.7 pg (25-34); Mean Corpuscular Hgb Conc 30.7 g/dL (32-36); Mean Corpuscular Volume 93.5 fL (80-100); Mean Platelet Volume 11.4 fL (7.4-10.4); Monocytes # (auto) 0.63 K/uL (0.11-0.59); Neutrophils % (auto) 71.3 %; Platelet Count 209 K/uL (130-400); RDW Standard Deviation 54.3 fL (36.4-46.3); White Blood Count 5.75 K/uL (4.8-10.8)
[2018-11-18 15:12] LABS: Partial Thromboplastin Ratio 1.1; Partial Thromboplastin Time 30.6 Seconds (21.0-31.0); Prothrombin Time 10.5 Seconds (9.0-12.0)
[2018-11-18 15:17] LABS: Alanine Aminotransferase < 6 U/L (12-78); Albumin Level 3.5 gm/dl (3.4-5.0); Aspartate Aminotransferase 13 U/L (15-37); BUN Creatinine Ratio 19.8 (10-20); Blood Urea Nitrogen 34 mg/dl (7-18); Calcium 8.3 mg/dl (8.5-10.1); Carbon Dioxide 24 mmol/L (21-32); Chloride 115 mmol/L (98-107); Est GFR (African American) 34.6; Est GFR (Non-African American) 29.8; Glucose 91 mg/dl (70-99); Magnesium 2.3 mg/dl (1.8-2.4); Potassium 4.1 mmol/L (3.5-5.1); Sodium 143 mmol/L (136-145)
[2018-11-18 15:25] LABS: Albumin Globulin Ratio 0.9 (0.9-2); Alkaline Phosphatase 105 U/L (45-117); Bilirubin,Total 0.3 mg/dl (0.2-1); Globulin 3.8 gm/dl (2.5-4.0); NT Pro B Type Natriuretic Pept 2101 pg/ml (0-900); Total Protein 7.3 gm/dl (6.4-8.2); Troponin I < 0.015 ng/ml (0-0.045)
[2018-11-18 15:39] LABS: Appearance Urine Clear (Clear); Bacteria Urine Automated Negative (Negative); Bilirubin Urine Negative (Negative); Blood Urine 2+ (Negative); Color Urine Dark Yellow; Epithelial Cell Urine Auto 0-5 /lpf (0-5); Glucose Urine UA Negative (Negative); Ketones Urine Negative (Negative); Leukocyte Esterase Urine Negative (Negative); Nitrite Urine Negative (Negative); Protein Urine Trace (Negative); Specific Gravity Urine 1.022 (1.000-1.030); Urobilinogen Urine Negative (Negative)
--- NOTE | 2018-11-18 16:14 | History & Physical Report ---
Date of Service November 18, 2018 Assessment & Plan (1) Acute hypoxemic respiratory failure: Acute hypoxic respiratory failure Acute on chronic diastolic CHF exacerbation CXR:Interval progression of the moderate pulmonary edema. Last EF: 55% Currently not on any p.o. diuretics Start IV Lasix 40mg BID Update ECHO Daily weight, I/Os, fluid restriction Supplemental Oxygen support PRN, BiPAP PRN Monitor renal function/electrolytes Trend Cardiac Enzymes Cardiology consulted SAM on CKD III Baseline Cr: 1.3 Cr: 1.69 today Renal function expected to deteriorate with IV diuresis Consider nephrology if needed Check renal ultrasound LBBB: Intermittent LBBB also noted on prior EKG R/O ACS Trend Cardiac enzymes Check ECHO for wall motion abnormality Currently denies any chest pain Initial troponin negative Chronic Anemia Hb:8.9 Likely dilutional due to volume overload Baseline Hb ~12 Monitor CBC Lethargy Minimize sedative meds Hold beta histamine Decrease Lyrica to 100mg BID Hold Melatonin Check Ammonia levels No hypercarbia on blood gas Parkinson's disease Continue carbidopa levodopa No acute issues Mnire's disease Meclizine PRN Rheumatoid arthritis Continue sulfasalazine No acute issues RENÉ Continue CPAP at bedtime Hypertension Continue amlodipine, hydralazine, Metoprolol Monitor DM II Diet-controlled Last A1c 5.6 in August 2018 ISS Mood disorder Restless leg syndrome Continue home meds Hypothyroidism Check TSH Continue levothyroxine DVT Px: Heparin SQ Code Status Full Code Disposition: PT/OT prior to discharge History of Present Illness Chief Complaint: Generalized swelling Primary Care Provider: Marcella Mondragon MD Patient is a 73-year-old female with history of Parkinson's disease, Mnire's disease, rheumatoid arthritis, RENÉ on CPAP, HTN, HLP, CKD III, DM II, Diastolic CHF, Mood disorder, Restless leg syndrome and other problems presents with history of generalized tiredness, weight gain, worsening lower extremity edema, right cough and intermittent dizziness. Patient is a poor historian. Patient was evaluated by PCP today for worsening leg edema, facial swelling, weight gain. As per patient's , patient has been sleeping mostly during the day. He reports a weight gain of about 6 to 7 pounds in the last week. Patient reports associated fatigue, dry cough, Dyspnea on exertion, intermittent dizziness since 1 to 2 weeks duration. Patient was noted to be hypoxic in 80s on room air. No recent medication changes as per patient's . Chest x- ray suggestive of moderate pulmonary edema. Currently patient saturating 93% on 4 L while in ED. No apparent respiratory distress noted. Denies any history of chest pain, shortness of breath at rest, wheezing, hemoptysis, fever, chills, fall, LOC, headache, nausea, vomiting, abdominal pain, diarrhea, dysuria, recent change in medications. Allergies Allergy/AdvReac Type Severity Reaction Status Date / Time No Known Allergies Allergy Verified 08/21/18 23:03 Home Medications Home Medications Medication Instructions Recorded Confirmed Type Betahistine Hydrochloride 16 mg PO BID 11/18/17 11/18/18 History aspirin 81 mg PO DAILY 11/18/17 11/18/18 History pravastatin [Pravachol] 40 mg PO DAILY 11/18/17 11/18/18 History sulfasalazine 1,000 mg PO BID 11/18/17 11/18/18 History amlodipine 5 mg PO DAILY 08/21/18 11/18/18 History carbidopa-levodopa 1 tab PO TID 08/21/18 11/18/18 History cyanocobalamin (vitamin B-12) 1,000 mcg PO DAILY 08/21/18 11/18/18 History [Vitamin B-12] levothyroxine 125 mcg PO QAM 08/21/18 11/18/18 History meclizine 25 mg PO TID PRN 08/21/18 11/18/18 History melatonin 10 mg PO HS 08/21/18 11/18/18 History metformin 500 mg PO DAILY 08/21/18 11/18/18 History oxybutynin chloride 5 mg PO DAILY 08/21/18 11/18/18 History ropinirole 4 mg PO HS 08/21/18 11/18/18 History terazosin 5 mg PO HS 08/21/18 11/18/18 History venlafaxine 150 mg PO DAILY 08/21/18 11/18/18 History pregabalin [Lyrica] 200 mg PO BID #60 cap 08/28/18 11/18/18 Rx hydralazine 25 mg PO TID 11/18/18 11/18/18 History metoprolol tartrate 25 mg PO BID 11/18/18 11/18/18 History Past Med/Surg History Medical History CKD (chronic kidney disease), stage III DM type 2 (diabetes mellitus, type 2) Depression Diabetes mellitus, type II Dyslipidemia Generalized anxiety disorder HTN (hypertension) Hypothyroidism Meniere's disease RENÉ on CPAP Restless leg syndrome Rheumatoid arthritis Surgical History H/O sinus surgery History of carpal tunnel surgery History of tubal ligation Hx of total knee arthroplasty "Left, Dr. Del Real" Family History Other AAA (abdominal aortic aneurysm) Diabetes Family history non-contributory Hypertension Myotonic dystrophy Social History Preferred Language: Romanian Communication Ability: Effective Resource Specialist Teacher Required: No Beliefs That Will Affect Care: None marital status: Current Living Situation: Spouse Feels Safe at Home: Yes Safety Concerns: Feels Safe At This Time Smoking Status: Former smoker Tobacco Type: cigarettes ; Cigarettes Per Day: 0.25ppd ; Do You Dip or Chew Tobacco: No ; Second Hand Exposure: No ; Hx Alcohol Use: No Hx Substance Use: No Review of Systems Review of Systems: All systems reviewed & are unremarkable except as noted in HPI & below Physical Exam Physical Exam: Physical Exam: Vitals signs as noted above General Appearance:Obese, no apparent distress, Sleepy Head: normocephalic, Atraumatic Eyes: normal inspection, EOMI Neck: supple, Trachea midline Respiratory/Chest: Decreased breath sounds, +Basal Crackles Cardiovascular: S1, S2, + murmur Abdomen/GI:Soft, Non tender, Bowel sounds present Extremities/Musculoskelatal:normal inspection, B/L LE edema Neurologic/Psych:AAOX3, grossly no focal neurological deficits Skin: normal color, warm Results & Data Vital Signs (Past 12 Hours) Vital Signs Temp Pulse Resp BP Pulse Ox 11/18/18 14:18 69 20 85 L 11/18/18 13:56 36.7 C 68 20 145/69 H 82 L 11/18/18 13:43 92 Laboratory Results Short CBC 11/18/18 Range/Units 14:26 WBC 5.75 (4.8-10.8) K/uL Hgb 8.9 L (12.0-16.0) g/dL Hct 29.0 L (37-47) % Plt Count 209 (130-400) K/uL BMP 11/18/18 14:26 Sodium 143 Potassium 4.1 Chloride 115 H Carbon Dioxide 24 BUN 34 H Creatinine 1.69 H Glucose 91 Calcium 8.3 L Cardiac Enzymes 11/18/18 Range/Units 14:26 Troponin I < 0.015 (0-0.045) ng/ml Liver Function 11/18/18 Range/Units 14:26 Total Bilirubin 0.3 (0.2-1) mg/dl AST 13 L (15-37) U/L ALT < 6 L (12-78) U/L Alkaline Phosphatase 105 (45-117) U/L Albumin 3.5 (3.4-5.0) gm/dl Urine 11/18/18 Range/Units 15:15 Urine Color Dark Yellow Urine Appearance Clear (Clear) Urine pH 5.0 (4.5-7.5) Ur Specific [place] 1.022 (1.000-1.030) Urine Protein Trace H (Negative) Urine Glucose (UA) Negative (Negative) Diagnostic Findings CXR: Interval progression of the moderate pulmonary edema. ECG Additional Comments: EKG: NSR, LBBB
[2018-11-18] MEDS ORDERED: GLUCAGON FOR INJ 1 MG VIAL SQ PRN (19:35)
[2018-11-18] MEDS ORDERED: GLUCOSE 10 TABS/TUBE PO PRN (19:35)
[2018-11-18] MEDS ORDERED: CARBOHYDRATES FOR HYPOGLYCEMIA PO PRN (19:35)
[2018-11-18] MEDS ORDERED: DEXTROSE 50% 50 ML SYRINGE IV PRN (19:35)
[2018-11-18] MEDS ORDERED: ALUMINUM/MAGNESIUM SUSP 30 ML UDC PO PRN (19:35)
[2018-11-18] MEDS ORDERED: MECLIZINE HCL 25 MG TAB PO PRN (19:35)
[2018-11-18] MEDS ORDERED: LEVALBUTEROL HCL 0.63 MG/3 ML NEB NEB PRN (19:35)
[2018-11-18] MEDS ORDERED: GLUCOSE 40% GEL 15 GM TUBE PO PRN (19:35)
[2018-11-18] MEDS ORDERED: ACETAMINOPHEN 325 MG TAB PO PRN (19:35)
[2018-11-18] MEDS ORDERED: POLYETHYLENE (MIRALAX) 17 GM PACK PO PRN (19:35)
[2018-11-18] MEDS: FUROSEMIDE 40 MG in SYRINGE 0 ML IV SCH (20:22)
[2018-11-18] MEDS: sulfaSALAzine 500 MG TABLET PO SCH (20:25)
[2018-11-18] MEDS: METOPROLOL TARTRATE 25 MG TAB PO SCH (20:26)
[2018-11-18] MEDS: ROPINIROLE HCL 1 MG TABLET PO SCH (20:26)
[2018-11-18] MEDS: TERAZOSIN HCL 5 MG CAP PO SCH (20:27)
[2018-11-18] MEDS: CARBIDOPA/LEVODOPA 25/100MG TAB PO SCH (20:27)
[2018-11-18] MEDS: PREGABALIN 100 MG CAP PO SCH (20:31)
[2018-11-18] MEDS: INSULIN ASPART 100 UNITS/ML 3 ML PEN SC SCH (20:35)
[2018-11-18] MEDS: HEPARIN SOD 5,000 UNIT/0.5 ML VIAL SQ SCH (20:36)
--- NOTE | 2018-11-18 22:46 | Emergency Department Note ---
Entered by Meghana Marti acting as a scribe for History of Present Illness General Chief complaint: Shortness of Breath/Dyspnea Stated complaint: LOW 02,FILLING UP WITH FLUID Source: patient History of Present Illness Provider complaint: Shortness of Breath Onset (ago): day(s) 3 Location: chest Relieved By: + none Exacerbated By: + none Associated symptoms: + other (Swollen eyes, face, and legs); no confusion and no fever/chills The patient is a 73 year old female who presents to the Emergency Room with complaints of shortness of breath that began 3 days prior. The patient reports that her eyes, face, and legs are swollen but denies any pain. The pain is not exacerbated or relieved by anything. The patient states she has been eating and drinking well and gained about 6-7 pounds in the past week. Additionally, the patient states she has not been exercising and spends about 16 hours a day in bed. The patient denies any confusion or fevers and chills. The patient mentioned that these symptoms are similar to symptoms experienced the last time she was here in August. The patient reports that she uses a CIPAP when she sleeps but denies using any oxygen at home. Home Medications Home Medications Medication Instructions Recorded Confirmed Type Betahistine Hydrochloride 16 mg PO BID 11/18/17 11/18/18 History aspirin 81 mg PO DAILY 11/18/17 11/18/18 History pravastatin [Pravachol] 40 mg PO DAILY 11/18/17 11/18/18 History sulfasalazine 1,000 mg PO BID 11/18/17 11/18/18 History amlodipine 5 mg PO DAILY 08/21/18 11/18/18 History carbidopa-levodopa 1 tab PO TID 08/21/18 11/18/18 History cyanocobalamin (vitamin B-12) 1,000 mcg PO DAILY 08/21/18 11/18/18 History [Vitamin B-12] levothyroxine 125 mcg PO QAM 08/21/18 11/18/18 History meclizine 25 mg PO TID PRN 08/21/18 11/18/18 History melatonin 10 mg PO HS 08/21/18 11/18/18 History metformin 500 mg PO DAILY 08/21/18 11/18/18 History oxybutynin chloride 5 mg PO DAILY 08/21/18 11/18/18 History ropinirole 4 mg PO HS 08/21/18 11/18/18 History terazosin 5 mg PO HS 08/21/18 11/18/18 History venlafaxine 150 mg PO DAILY 08/21/18 11/18/18 History pregabalin [Lyrica] 200 mg PO BID #60 cap 08/28/18 11/18/18 Rx hydralazine 25 mg PO TID 11/18/18 11/18/18 History metoprolol tartrate 25 mg PO BID 11/18/18 11/18/18 History Allergies Allergy/AdvReac Type Severity Reaction Status Date / Time No Known Allergies Allergy Verified 08/21/18 23:03 Past Med/Surg History Medical History CKD (chronic kidney disease), stage III DM type 2 (diabetes mellitus, type 2) Depression Diabetes mellitus, type II Dyslipidemia Generalized anxiety disorder HTN (hypertension) Hypothyroidism Meniere's disease RENÉ on CPAP Restless leg syndrome Rheumatoid arthritis Surgical History H/O sinus surgery History of carpal tunnel surgery History of tubal ligation Hx of total knee arthroplasty "Left, Dr. Del Real" Family History Other AAA (abdominal aortic aneurysm) Diabetes Family history non-contributory Hypertension Myotonic dystrophy Social History Preferred Language: Luxembourgish Communication Ability: Effective Payment Processor Required: No Beliefs That Will Affect Care: None marital status: Current Living Situation: Spouse Feels Safe at Home: Yes Safety Concerns: Feels Safe At This Time Smoking Status: Former smoker Tobacco Type: cigarettes ; Cigarettes Per Day: 0.25ppd ; Do You Dip or Chew Tobacco: No ; Second Hand Exposure: No ; Hx Alcohol Use: No Hx Substance Use: No Review of Systems See HPI for pertinent positives & negatives. and A total of 10 systems reviewed and were otherwise negative Physical Exam Vital Signs Vital Signs - 24 hr 11/18/18 13:15 11/18/18 13:43 11/18/18 13:56 Temperature 36.7 C Temperature Source Oral Sepsis Recent Fever Within 48 Hours No Sepsis New/Unexplained Change in Mental Status No Sepsis Action Taken by Nursing No Action Required Oxygen Flow Rate - Titration Pulse Oximetry Post Tiitration Pulse Rate 68 68 Pulse Rate from SpO2 Sensor 67 Pulse Rhythm Respiratory Rate 16 20 Respiratory Effort / Characteristics Spontaneous Labored Non-Labored Spontaneous Respiratory Depth Deep Respiratory Pattern Tachypnea Blood Pressure 134/73 145/69 H Blood Pressure Mean 93 94 Blood Pressure Position Sitting Pulse Oximetry 94 92 82 L Oxygen Delivery Method Nasal Cannula Room Air Oxygen Flow Rate 4 11/18/18 14:18 11/18/18 14:28 11/18/18 14:30 Temperature Temperature Source Sepsis Recent Fever Within 48 Hours Sepsis New/Unexplained Change in Mental Status Sepsis Action Taken by Nursing Oxygen Flow Rate - Titration 4 Pulse Oximetry Post Tiitration 92 Pulse Rate 69 69 67 Pulse Rate from SpO2 Sensor 68 68 Pulse Rhythm Regular Respiratory Rate 20 17 15 Respiratory Effort / Characteristics Respiratory Depth Respiratory Pattern Blood Pressure 135/77 Blood Pressure Mean 96 Blood Pressure Position Pulse Oximetry 85 L 92 93 Oxygen Delivery Method Room Air Oxygen Flow Rate 4 11/18/18 14:40 11/18/18 14:50 11/18/18 14:51 Temperature Temperature Source Sepsis Recent Fever Within 48 Hours Sepsis New/Unexplained Change in Mental Status Sepsis Action Taken by Nursing Oxygen Flow Rate - Titration Pulse Oximetry Post Tiitration Pulse Rate 72 71 70 Pulse Rate from SpO2 Sensor 69 72 69 Pulse Rhythm Respiratory Rate 17 20 18 Respiratory Effort / Characteristics Respiratory Depth Respiratory Pattern Blood Pressure 133/76 148/90 H Blood Pressure Mean 95 109 Blood Pressure Position Pulse Oximetry 92 91 91 Oxygen Delivery Method Oxygen Flow Rate 11/18/18 15:00 11/18/18 15:10 11/18/18 15:20 Temperature Temperature Source Sepsis Recent Fever Within 48 Hours Sepsis New/Unexplained Change in Mental Status Sepsis Action Taken by Nursing Oxygen Flow Rate - Titration Pulse Oximetry Post Tiitration Pulse Rate 67 79 70 Pulse Rate from SpO2 Sensor 68 78 71 Pulse Rhythm Respiratory Rate 20 16 17 Respiratory Effort / Characteristics Respiratory Depth Respiratory Pattern Blood Pressure Blood Pressure Mean Blood Pressure Position Pulse Oximetry 94 93 92 Oxygen Delivery Method Oxygen Flow Rate 11/18/18 15:30 11/18/18 15:40 11/18/18 15:50 Temperature Temperature Source Sepsis Recent Fever Within 48 Hours Sepsis New/Unexplained Change in Mental Status Sepsis Action Taken by Nursing Oxygen Flow Rate - Titration Pulse Oximetry Post Tiitration Pulse Rate 67 65 66 Pulse Rate from SpO2 Sensor 67 66 66 Pulse Rhythm Respiratory Rate 15 16 14 Respiratory Effort / Characteristics Respiratory Depth Respiratory Pattern Blood Pressure Blood Pressure Mean Blood Pressure Position Pulse Oximetry 92 94 93 Oxygen Delivery Method Oxygen Flow Rate 11/18/18 16:00 11/18/18 16:10 11/18/18 16:20 Temperature Temperature Source Sepsis Recent Fever Within 48 Hours Sepsis New/Unexplained Change in Mental Status Sepsis Action Taken by Nursing Oxygen Flow Rate - Titration Pulse Oximetry Post Tiitration Pulse Rate 66 66 67 Pulse Rate from SpO2 Sensor 64 66 67 Pulse Rhythm Respiratory Rate 16 13 16 Respiratory Effort / Characteristics Respiratory Depth Respiratory Pattern Blood Pressure Blood Pressure Mean Blood Pressure Position Pulse Oximetry 94 93 93 Oxygen Delivery Method Oxygen Flow Rate 11/18/18 16:30 11/18/18 16:40 11/18/18 16:50 Temperature Temperature Source Sepsis Recent Fever Within 48 Hours Sepsis New/Unexplained Change in Mental Status Sepsis Action Taken by Nursing Oxygen Flow Rate - Titration Pulse Oximetry Post Tiitration Pulse Rate 66 71 70 Pulse Rate from SpO2 Sensor 67 69 70 Pulse Rhythm Respiratory Rate 15 20 18 Respiratory Effort / Characteristics Respiratory Depth Respiratory Pattern Blood Pressure Blood Pressure Mean Blood Pressure Position Pulse Oximetry 93 92 94 Oxygen Delivery Method Oxygen Flow Rate 11/18/18 17:00 11/18/18 17:10 11/18/18 17:20 Temperature Temperature Source Sepsis Recent Fever Within 48 Hours Sepsis New/Unexplained Change in Mental Status Sepsis Action Taken by Nursing Oxygen Flow Rate - Titration Pulse Oximetry Post Tiitration Pulse Rate 72 67 68 Pulse Rate from SpO2 Sensor 72 67 68 Pulse Rhythm Respiratory Rate 16 17 14 Respiratory Effort / Characteristics Respiratory Depth Respiratory Pattern Blood Pressure Blood Pressure Mean Blood Pressure Position Pulse Oximetry 94 93 94 Oxygen Delivery Method Oxygen Flow Rate 11/18/18 17:30 11/18/18 17:40 11/18/18 17:48 Temperature Temperature Source Sepsis Recent Fever Within 48 Hours Sepsis New/Unexplained Change in Mental Status Sepsis Action Taken by Nursing Oxygen Flow Rate - Titration Pulse Oximetry Post Tiitration Pulse Rate 65 68 67 Pulse Rate from SpO2 Sensor 63 68 66 Pulse Rhythm Respiratory Rate 16 17 17 Respiratory Effort / Characteristics Respiratory Depth Respiratory Pattern Blood Pressure 147/101 H Blood Pressure Mean 116 Blood Pressure Position Pulse Oximetry 94 94 93 Oxygen Delivery Method Oxygen Flow Rate 11/18/18 17:50 11/18/18 18:00 Temperature Temperature Source Sepsis Recent Fever Within 48 Hours Sepsis New/Unexplained Change in Mental Status Sepsis Action Taken by Nursing Oxygen Flow Rate - Titration Pulse Oximetry Post Tiitration Pulse Rate 72 72 Pulse Rate from SpO2 Sensor 68 70 Pulse Rhythm Respiratory Rate 21 15 Respiratory Effort / Characteristics Respiratory Depth Respiratory Pattern Blood Pressure Blood Pressure Mean Blood Pressure Position Pulse Oximetry 93 92 Oxygen Delivery Method Oxygen Flow Rate GENERAL: Awake, alert but slightly slow in answering questions, fatigue- appearing, in no distress HENT: Normocephalic, atraumatic. Oropharynx unremarkable. Bilateral facial swelling. EYES: Normal conjunctiva. Sclera non-icteric. NECK: Supple. No nuchal rigidity. RESPIRATORY: No wheezes. Diminished lung basis with scattered crackle. CARDIAC: Normal rate. Normal rhythm. Extremities warm and well perfused. GI: Soft, non-distended. No tenderness to palpation. No rebound or guarding. RECTAL: Deferred. MUSCULOSKELETAL: Atraumatic. Chest examination reveals no tenderness. LOWER EXTREMITIES: Calves are equal size bilaterally and non-tender. 3+ bilateral lower extremity swelling. NEURO:No sensory or motor deficits noted. No facial droop. SKIN: Warm and dry. No rash or jaundice noted. Course 1409: Past medical records reviewed. The patient was evaluated in room C06. A complete history and physical exam was performed. 1555: I reevaluated and updated the patient on her results. The patient is resting comfortably. 1613: [facility] She will accept the patient for further evaluation. Administered Medications Carbidopa/Levodopa (Sinemet 25/100 Mg) 1 tab PO TID [facility] Stop: 12/18/18 20:59 Last Admin: 11/18/18 20:27 Dose: 1 tab Documented by: [id number] Heparin Sodium (Porcine) (Heparin Sodium (Porcine)) 5,000 units SQ Q8 [facility] Stop: 12/18/18 21:59 Last Admin: 11/18/18 20:36 Dose: 5,000 units Documented by: [id number] Cosigned by: [id number] Hydralazine HCl (Apresoline) 25 mg PO TID [facility] Stop: 12/18/18 20:59 Last Admin: 11/18/18 20:26 Dose: 25 mg Documented by: [id number] Furosemide 40 mg/ Syringe 4 mls @ 4 mls/min IV [id number] [facility] Stop: 12/18/18 19:59 Last Admin: 11/18/18 20:22 Dose: 4 mls/min Documented by: [id number] Insulin Aspart (Novolog Flexpen) 0 units SC ACHS [facility] Stop: 12/18/18 20:59 Last Admin: 11/18/18 20:35 Dose: Not Given Documented by: [id number] Cosigned by: [id number] Metoprolol Tartrate (Lopressor) 25 mg PO BID [facility] Stop: 12/18/18 20:59 Last Admin: 11/18/18 20:26 Dose: 25 mg Documented by: [id number] Pregabalin (Lyrica) 100 mg PO BID [facility] Stop: 12/18/18 20:59 Last Admin: 11/18/18 20:31 Dose: 100 mg Documented by: [id number] Ropinirole HCl (Requip) 4 mg PO HS [facility] Stop: 12/18/18 20:59 Last Admin: 11/18/18 20:26 Dose: 4 mg Documented by: [id number] Sulfadiazine (Azulfidine) 1,000 mg PO BID [facility] Stop: 12/18/18 20:59 Last Admin: 11/18/18 20:25 Dose: 1,000 mg Documented by: [id number] Terazosin HCl (Hytrin) 5 mg PO HS [facility] Stop: 12/18/18 20:59 Last Admin: 11/18/18 20:27 Dose: 5 mg Documented by: [id number] Discontinued Medications Furosemide (Lasix) 40 mg IV NOW STA Stop: 11/18/18 14:20 Last Admin: 11/18/18 15:16 Dose: 40 mg Documented by: [id number] Medical Decision Making Differential Diagnosis Differential diagnosis: Etiologies such as infections, reactive airway disease, COPD, pneumonia, pleural effusion, pulmonary edema, ARDS, pneumothorax, CHF, cardiac ischemia, cardiac tamponade, dysrhythmia, anemia, pulmonary embolism, musculoskeletal, gastrointestinal process, as well as others were entertained. Medical Records Attestation: I reviewed the patient's medical records. Home Medications Current Medication List: was personally reviewed by me Laboratory Data Attestation: I reviewed the patient's lab results. Result diagrams: 11/18/18 14:26 11/18/18 14:26 Lab Results 11/18/18 11/18/18 11/18/18 Range/Units 14:26 14:26 14:26 WBC 5.75 (4.8-10.8) K/uL RBC 3.10 L (4.2-5.4) M/uL Hgb 8.9 L (12.0-16.0) g/dL Hct 29.0 L (37-47) % MCV 93.5 (80-100) fL MCH 28.7 (25-34) pg MCHC 30.7 L (32-36) g/dL RDW Std Deviation 54.3 H (36.4-46.3) fL RDW Coeff of Bhavin 16.0 H (11.5-14.5) % Plt Count 209 (130-400) K/uL MPV 11.4 H (7.4-10.4) fL Immature Gran % (Auto) 0.5 % Neut % (Auto) 71.3 % Lymph % (Auto) 16.2 % [place] % (Auto) 11.0 % Eos % (Auto) 0.0 % Baso % (Auto) 1.0 % Immature Gran # (Auto) 0.03 H (0.00-0.02) K/uL Neut # (Auto) 4.10 (1.4-6.5) K/uL Lymph # (Auto) 0.93 L (1.2-3.4) K/uL [place] # (Auto) 0.63 H (0.11-0.59) K/uL Eos # (Auto) 0.00 (0-0.5) K/uL Baso # (Auto) 0.06 (0-0.2) K/uL PT (9.0-12.0) Seconds INR (0.9-1.1) APTT (21.0-31.0) Seconds PTT Ratio VBG pH 7.29 L (7.36-7.41) VBG pCO2 47 (38-50) mmHg VBG pO2 54 mmHg VBG HCO3 22 mmol/L VBG O2 Saturation 82.7 % VBG Base Excess -4.6 mEq/L Barometric Pressure 730.2 mm/Hg Sodium 143 (136-145) mmol/L Potassium 4.1 (3.5-5.1) mmol/L Chloride 115 H (98-107) mmol/L Carbon Dioxide 24 (21-32) mmol/L Anion Gap 4.0 (3-11) BUN 34 H (7-18) mg/dl Creatinine 1.69 H (0.6-1.2) mg/dl Est Cr Clr Drug Dosing Not Reportable Est GFR ( Amer) 34.6 Est GFR (Non-Af Amer) 29.8 BUN/Creatinine Ratio 19.8 (10-20) Glucose 91 (70-99) mg/dl Lactate (0.4-2.0) mmol/L Calcium 8.3 L (8.5-10.1) mg/dl Magnesium 2.3 (1.8-2.4) mg/dl Total Bilirubin 0.3 (0.2-1) mg/dl AST 13 L (15-37) U/L ALT < 6 L (12-78) U/L Alkaline Phosphatase 105 (45-117) U/L Troponin I < 0.015 (0-0.045) ng/ml NT-Pro-B Natriuret Pep 2101 H (0-900) pg/ml Total Protein 7.3 (6.4-8.2) gm/dl Albumin 3.5 (3.4-5.0) gm/dl Globulin 3.8 (2.5-4.0) gm/dl Albumin/Globulin Ratio 0.9 (0.9-2) Urine Color Urine Appearance (Clear) Urine pH (4.5-7.5) Ur Specific [place] (1.000-1.030) Urine Protein (Negative) Urine Glucose (UA) (Negative) Urine Ketones (Negative) Urine Blood (Negative) Urine Nitrite (Negative) Urine Bilirubin (Negative) Urine Urobilinogen (Negative) Ur Leukocyte Esterase (Negative) Urine WBC (Auto) (0-5) /hpf Urine RBC (Auto) (0-4) /hpf U Hyaline Cast (Auto) (0-5) /lpf U Epithel Cells (Auto) (0-5) /lpf Urine Bacteria (Auto) (Negative) 11/18/18 11/18/18 11/18/18 Range/Units 14:26 14:26 15:15 WBC (4.8-10.8) K/uL RBC (4.2-5.4) M/uL Hgb (12.0-16.0) g/dL Hct (37-47) % MCV (80-100) fL MCH (25-34) pg MCHC (32-36) g/dL RDW Std Deviation (36.4-46.3) fL RDW Coeff of Bhavin (11.5-14.5) % Plt Count (130-400) K/uL MPV (7.4-10.4) fL Immature Gran % (Auto) % Neut % (Auto) % Lymph % (Auto) % [place] % (Auto) % Eos % (Auto) % Baso % (Auto) % Immature Gran # (Auto) (0.00-0.02) K/uL Neut # (Auto) (1.4-6.5) K/uL Lymph # (Auto) (1.2-3.4) K/uL [place] # (Auto) (0.11-0.59) K/uL Eos # (Auto) (0-0.5) K/uL Baso # (Auto) (0-0.2) K/uL PT 10.5 (9.0-12.0) Seconds INR 1.0 (0.9-1.1) APTT 30.6 (21.0-31.0) Seconds PTT Ratio 1.1 VBG pH (7.36-7.41) VBG pCO2 (38-50) mmHg VBG pO2 mmHg VBG HCO3 mmol/L VBG O2 Saturation % VBG Base Excess mEq/L Barometric Pressure mm/Hg Sodium (136-145) mmol/L Potassium (3.5-5.1) mmol/L Chloride (98-107) mmol/L Carbon Dioxide (21-32) mmol/L Anion Gap (3-11) BUN (7-18) mg/dl Creatinine (0.6-1.2) mg/dl Est Cr Clr Drug Dosing Est GFR ( Amer) Est GFR (Non-Af Amer) BUN/Creatinine Ratio (10-20) Glucose (70-99) mg/dl Lactate 0.6 (0.4-2.0) mmol/L Calcium (8.5-10.1) mg/dl Magnesium (1.8-2.4) mg/dl Total Bilirubin (0.2-1) mg/dl AST (15-37) U/L ALT (12-78) U/L Alkaline Phosphatase (45-117) U/L Troponin I (0-0.045) ng/ml NT-Pro-B Natriuret Pep (0-900) pg/ml Total Protein (6.4-8.2) gm/dl Albumin (3.4-5.0) gm/dl Globulin (2.5-4.0) gm/dl Albumin/Globulin Ratio (0.9-2) Urine Color Dark Yellow Urine Appearance Clear (Clear) Urine pH 5.0 (4.5-7.5) Ur Specific [place] 1.022 (1.000-1.030) Urine Protein Trace H (Negative) Urine Glucose (UA) Negative (Negative) Urine Ketones Negative (Negative) Urine Blood 2+ H (Negative) Urine Nitrite Negative (Negative) Urine Bilirubin Negative (Negative) Urine Urobilinogen Negative (Negative) Ur Leukocyte Esterase Negative (Negative) Urine WBC (Auto) 1-5 (0-5) /hpf Urine RBC (Auto) 10-30 H (0-4) /hpf U Hyaline Cast (Auto) 1-5 (0-5) /lpf U Epithel Cells (Auto) 0-5 (0-5) /lpf Urine Bacteria (Auto) Negative (Negative) Imaging Data Radiologist's Impression: Radiology results as stated below per my review and the radiologist's interpretation: XR chest 1V portable HISTORY: Dyspnea COMPARISON: Chest 08/25/2018. FINDINGS: No pneumothorax. The heart remains enlarged. Progressive interstitial and vascular thickening consistent with moderate pulmonary edema. Suspect small bilateral pleural effusions. IMPRESSION: Interval progression of the moderate pulmonary edema. Electronically signed by: Carlos Jenkins M.D. 11/18/2018 2:40 PM ECG Data Attestation: I personally reviewed and interpreted this ECG as follows: Indication: SOB/dyspnea Rate (beats per minute): 74 Rhythm: normal sinus Findings: + LBBB; no ST elevation Comparison ECG Date: from (08/23/2018) Change: the following changes noted (Left bundle branch block is new) Blood Pressure Blood Pressure Findings: Elevated blood pressure Blood Pressure Disposition: Referred to patients primary care provider SHALINI Hernández Patient is a 73-year-old female with a past medical history of hypertension, hyperlipidemia PE, diabetes as well as a history of CHF presenting today with hypoxia and increased swelling of the body extremities and face. She denies real shortness of breath but fatigue and weakness. Denies any headache or chest pain. Denies abdominal pain. Swelling of the bilateral face around the eyes was noted today and has been swelling of lower legs for the past week with some weight gain. states this is similar to when she presented earlier in the summer with hypoxic respiratory failure likely from volume overload. Not currently on diuretics or anticoagulation. CT the consider to possibly look for PE however given her poor kidney function today will defer at this time is clinically appears much more consistent with volume overload. Basic labs, EKG, troponin, BMP were sent for lateral abnormality possible cardiac injury. Concern for possible CHF exacerbation empirically given some Lasix. Patient with new oxygen requirement. VBG obtained. Does not have focal neurological deficit lower suspicion for acute intracranial hemorrhage or CVA. Patient somewhat slow in answering questions. Again already given Lasix and feel this time admission for further diuresis as needed. Family is in agreement. [facility] hospitalist contacted. Impression & Plan Shortness of breath, Hypoxia, Congestive heart failure Discharge Plan Visit Data *Final* Discharge Date/Time: 11/18/18 19:15 Chief Complaint: Shortness of Breath/Dyspnea Stated Complaint: LOW 02,FILLING UP WITH FLUID ED Provider: Kennedy Finch Discharge Problem: Shortness of breath, Hypoxia, Congestive heart failure Patient Disposition: Admitted As Inpatient Discharge Problem: Congestive heart failure Qualifiers: Heart failure type: unspecified Heart failure chronicity: acute Qualified Code(s): I50.9 - Heart failure, unspecified The scribe's documentation has been prepared under my direction and personally reviewed by me in its entirety. I confirm that the note above accurately reflects all work, treatment, procedures, and medical decision making performed by me.
[2018-11-19] MEDS: LEVOTHYROXINE SODIUM 125 MCG TABLET PO SCH (05:58)
[2018-11-19] MEDS: HEPARIN SOD 5,000 UNIT/0.5 ML VIAL SQ SCH ×3 (06:00→21:12)
[2018-11-19 06:35] LABS: Hematocrit (blood only) 29.9 % (37-47); Hemoglobin 9.2 g/dL (12.0-16.0); Mean Corpuscular Hemoglobin 28.7 pg (25-34); Mean Corpuscular Hgb Conc 30.8 g/dL (32-36); Mean Corpuscular Volume 93.1 fL (80-100); Mean Platelet Volume 11.2 fL (7.4-10.4); Platelet Count 188 K/uL (130-400); RDW Coefficient of Variation 15.9 % (11.5-14.5); RDW Standard Deviation 53.7 fL (36.4-46.3); Red Blood Count 3.21 M/uL (4.2-5.4); White Blood Count 5.77 K/uL (4.8-10.8)
[2018-11-19 07:07] LABS: Estimated Average Glucose 82 mg/dl; Hemoglobin A1C 4.5 % (4.5-5.6)
[2018-11-19 07:12] LABS: BUN Creatinine Ratio 19.1 (10-20); Calcium 8.2 mg/dl (8.5-10.1); Creatinine Clr Calc Pharmacy 37.7 ml/min; Est GFR (African American) 37.8; Est GFR (Non-African American) 32.6; Magnesium 1.9 mg/dl (1.8-2.4); Potassium 3.5 mmol/L (3.5-5.1)
[2018-11-19 07:23] LABS: Thyroid Stimulating Hormone 4.06 uIu/ml (0.300-4.500)
--- NOTE | 2018-11-19 07:49 | XRay Report ---
XR chest 1V portable HISTORY: Shortness of breath. Pulmonary edema COMPARISON: Chest 11/18/2018. FINDINGS: Interval improvement in the mild interstitial pulmonary edema and trace bilateral pleural e ffusions. The heart remains enlarged. No new focal lung consolidations. No pneumothorax. IMPRESSION: Improvement in the mild interstitial pulmonary edema and trace bilateral pleural effusions. Electronically signed by: Carlos Jenkins M.D. 11/19/2018 7:48 AM
--- NOTE | 2018-11-19 08:10 | Ultrasound Report ---
ULTRASOUND KIDNEYS AND BLADDER CLINICAL HISTORY: Acute renal insufficiency. COMPARISON STUDY: Abdominal CT dated 08/09/2016. TECHNIQUE: Real-time, grayscale, and color flow sonography of the kidneys and bladder is performed. I mages are reviewed in the transverse and longitudinal planes. FINDINGS: Kidneys: The kidneys demonstrate mild cortical atrophy and are normal in echotexture. The right kidne y measures 10.5 cm in length and the left kidney measures 11.1 cm in length. There is no hydronephros is. No shadowing renal calculi are identified. A subcentimeter cyst is incidentally noted in the left kidney. There is no sonographic evidence of renal mass lesion. No perinephric fluid is identified. Bladder: The bladder is decompressed around a Kirby catheter and cannot be assessed. . Pleural spaces: A trace pleural effusion is noted in the left. IMPRESSION: 1. The kidneys demonstrate mild cortical atrophy and are without hydronephrosis. 2. The bladder is decompressed around a Kirby catheter and cannot be assessed. 3. Trace left pleural effusion. Electronically signed by: Deep Smith M.D. 11/19/2018 8:09 AM
[2018-11-19] MEDS: PRAVASTATIN SOD 40 MG TAB PO SCH (08:39)
[2018-11-19] MEDS: VENLAFAXINE HCL XR 150 MG CAPXR PO SCH (08:39)
[2018-11-19] MEDS: OXYBUTYNIN CHLORIDE XL 5 MG TABCR PO SCH (08:39)
[2018-11-19] MEDS: AMLODIPINE BESYLATE 5 MG TAB PO SCH (08:39)
[2018-11-19] MEDS: sulfaSALAzine 500 MG TABLET PO SCH ×2 (08:40→20:11)
[2018-11-19] MEDS: CARBIDOPA/LEVODOPA 25/100MG TAB PO SCH ×3 (08:40→20:11)
[2018-11-19] MEDS: ASPIRIN 81 MG ECTAB PO SCH (08:40)
[2018-11-19] MEDS: INSULIN ASPART 100 UNITS/ML 3 ML PEN SC SCH ×4 (08:40→21:12)
[2018-11-19] MEDS: FUROSEMIDE 40 MG in SYRINGE 0 ML IV SCH ×2 (08:40→17:18)
[2018-11-19] MEDS: METOPROLOL TARTRATE 25 MG TAB PO SCH ×2 (08:40→20:11)
[2018-11-19] MEDS: PREGABALIN 100 MG CAP PO SCH ×2 (09:42→20:11)
--- NOTE | 2018-11-19 11:27 | Cardiology Consultation ---
Date of Consultation November 19, 2018 Assessment & Plan (1) Acute diastolic heart failure: Patient presenting with pulm edema/volume overload, likely due to diastolic HF in setting of hypertensive heart disease She is not currently on oral diuretic therapy. Will likely need on discharge. For now, continue furosemide 40 mg BID monitor I+O's 1500 ml fluid restriction Supplement potassium (2) LBBB (left bundle branch block): history of intermittent LBBB in the past Negative cardiac enzymes Not indicative of acute ACS (3) Hypertension: BP controlled continue home medications Supervising Physician Co-Signing Physician Notes Patient seen and examined with Rekha Schmid PA-C. Agree with findings and assessment as above. [place] awake and alert at time of my examine. States that her breathing has improved somewhat. Patient presenting with pulm edema/volume overload, likely due to diastolic HF in setting of hypertensive heart disease. cont to diurese. Will require ongoing oral diuretics upon discharge. General: Awake, alert and oriented x 3. No acute distress. HEENT: Normocephalic, atraumatic. Pupils equal, round and reactive to light and accommodation. Extraocular muscles are intact. Anicteric sclera. Moist mucous membranes. Neck: No JVD. No bruit. Cardiovascular: Regular. Positive S-4. Normal S-1 and S-2. No S-3. No murmurs or rubs. Pulmonary: Clear to auscultation B/L. No rales, rhonchi or wheezing Abdomen: Bowel sounds x 4, soft. No rebound, guarding or tenderness. No organomegaly. Extremities: No clubbing, cyanosis or edema. +2 pedal pulses bilaterally. Skin: Warm and dry. History of Present Illness Reason for Consultation: SOB Requesting Physician: Dr. Gu Attending Physician: Dr. Diop History of Present Illness Patient is a 73-year-old female admitted to [facility] with complaints of worsening shortness of breath, lower extremity swelling and weight gain over the last few days. At time of consult patient was difficult to awaken from sleep and full history not obtained. History was obtained from medical records. History includes hypertension, hypothyroidism, diabetes, dyslipidemia, obesity, and REÉN on BiPAP therapy at night. Patient has been reportedly noncompliant with BiPAP. She was evaluated by cardiology and August 2018 when she was admitted with acute respiratory failure and hypoxia. She was found to have minimally elevated troponins consistent with demand ischemia. Echo revealed preserved LV systolic function without wall motion abnormalities and no significant valvular heart disease at that time. Conservative therapies recommended. She previously underwent dobutamine stress echo in 2017 which was negative for inducible ischemia. At that time she was found to have an intermittent left bundle branch block on EKG. Due to complaints of shortness of breath and fluid overload, patient was admitted and started on IV diuretics with BiPAP therapy. Chest x-ray consistent with pulmonary edema. Cardiac enzymes negative. EKG demonstrated normal sinus rhythm with left bundle branch block. At time of consult patient resting in bed, sleeping comfortably on supplemental O2. She reports her shortness of breath is better. Reports ongoing lower extremity edema. Denies chest pain. No dizziness, syncope or near syncope. Allergies Allergy/AdvReac Type Severity Reaction Status Date / Time No Known Allergies Allergy Verified 08/21/18 23:03 Home Medications Home Medications Medication Instructions Recorded Confirmed Type Betahistine Hydrochloride 16 mg PO BID 11/18/17 11/18/18 History aspirin 81 mg PO DAILY 11/18/17 11/18/18 History pravastatin [Pravachol] 40 mg PO DAILY 11/18/17 11/18/18 History sulfasalazine 1,000 mg PO BID 11/18/17 11/18/18 History amlodipine 5 mg PO DAILY 08/21/18 11/18/18 History carbidopa-levodopa 1 tab PO TID 08/21/18 11/18/18 History cyanocobalamin (vitamin B-12) 1,000 mcg PO DAILY 08/21/18 11/18/18 History [Vitamin B-12] levothyroxine 125 mcg PO QAM 08/21/18 11/18/18 History meclizine 25 mg PO TID PRN 08/21/18 11/18/18 History melatonin 10 mg PO HS 08/21/18 11/18/18 History metformin 500 mg PO DAILY 08/21/18 11/18/18 History oxybutynin chloride 5 mg PO DAILY 08/21/18 11/18/18 History ropinirole 4 mg PO HS 08/21/18 11/18/18 History terazosin 5 mg PO HS 08/21/18 11/18/18 History venlafaxine 150 mg PO DAILY 08/21/18 11/18/18 History pregabalin [Lyrica] 200 mg PO BID #60 cap 08/28/18 11/18/18 Rx hydralazine 25 mg PO TID 11/18/18 11/18/18 History metoprolol tartrate 25 mg PO BID 11/18/18 11/18/18 History Patient History Medical History CKD (chronic kidney disease), stage III DM type 2 (diabetes mellitus, type 2) Depression Diabetes mellitus, type II Dyslipidemia Generalized anxiety disorder HTN (hypertension) Hypothyroidism Meniere's disease RENÉ on CPAP Restless leg syndrome Rheumatoid arthritis Surgical History H/O sinus surgery History of carpal tunnel surgery History of tubal ligation Hx of total knee arthroplasty "Left, Dr. 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 Beliefs That Will Affect Care: None marital status: Current Living Situation: Spouse Feels Safe at Home: Yes Safety Concerns: Feels Safe At This Time Smoking Status: Former smoker Tobacco Type: cigarettes ; Cigarettes Per Day: 0.25ppd ; Do You Dip or Chew Tobacco: No ; Second Hand Exposure: No ; Hx Alcohol Use: No Hx Substance Use: No Review of Systems Review of Systems: All systems reviewed & are unremarkable except as noted in HPI & below Physical Exam Constitutional: WD/WN, vitals as above + morbidly obese Respiratory: Auscultation: + diminished lung sounds; no crackles and no rales Cardiovascular: Rate/Rhythm: regular rate and regular rhythm Heart Sounds: no murmur Extremities: + edema (2+ b/l ) Gastrointestinal (Abdomen): normal bowel sounds, soft, nontender, no hepatosplenomegaly Musculoskeletal: no cyanosis or clubbing, extremities motor strength 5/5 Psychiatric: A+Ox3, euthymic affect Affect: + flat affect Results & Data Vital Signs (Past 12 Hours) Vital Signs Temp Pulse Resp BP Pulse Ox 11/19/18 11:09 36.9 C 56 L 18 107/49 L 91 11/19/18 10:13 36.4 C L 65 20 127/79 94 11/19/18 08:24 36.4 C L 63 20 149/76 H 94 11/19/18 04:31 36.7 C 55 L 16 146/73 H 91 11/18/18 23:37 36.5 C 51 L 19 106/61 93 Laboratory Results 11/19/18 11/19/18 11/19/18 Range/Units 07:25 06:18 06:18 WBC (4.8-10.8) K/uL RBC (4.2-5.4) M/uL Hgb (12.0-16.0) g/dL Hct (37-47) % MCV (80-100) fL MCH (25-34) pg MCHC (32-36) g/dL RDW Std Deviation (36.4-46.3) fL RDW Coeff of Bhavin (11.5-14.5) % Plt Count (130-400) K/uL MPV (7.4-10.4) fL Immature Gran % (Auto) % Neut % (Auto) % Lymph % (Auto) % [place] % (Auto) % Eos % (Auto) % Baso % (Auto) % Immature Gran # (Auto) (0.00-0.02) K/uL Neut # (Auto) (1.4-6.5) K/uL Lymph # (Auto) (1.2-3.4) K/uL [place] # (Auto) (0.11-0.59) K/uL Eos # (Auto) (0-0.5) K/uL Baso # (Auto) (0-0.2) K/uL PT (9.0-12.0) Seconds INR (0.9-1.1) APTT (21.0-31.0) Seconds PTT Ratio VBG pH (7.36-7.41) VBG pCO2 (38-50) mmHg VBG pO2 mmHg VBG HCO3 mmol/L VBG O2 Saturation % VBG Base Excess mEq/L Barometric Pressure mm/Hg Sodium 145 (136-145) mmol/L Potassium 3.5 (3.5-5.1) mmol/L Chloride 113 H (98-107) mmol/L Carbon Dioxide 25 (21-32) mmol/L Anion Gap 7.0 (3-11) BUN 30 H (7-18) mg/dl Creatinine 1.57 H (0.6-1.2) mg/dl Est Cr Clr Drug Dosing 37.7 Est GFR ( Amer) 37.8 Est GFR (Non-Af Amer) 32.6 BUN/Creatinine Ratio 19.1 (10-20) Glucose 80 (70-99) mg/dl POC Glucose 82 (70-99) Estimat Average Glucose 82 mg/dl Hemoglobin A1c 4.5 (4.5-5.6) % Lactate (0.4-2.0) mmol/L Calcium 8.2 L (8.5-10.1) mg/dl Magnesium 1.9 (1.8-2.4) mg/dl Total Bilirubin (0.2-1) mg/dl AST (15-37) U/L ALT (12-78) U/L Alkaline Phosphatase (45-117) U/L Ammonia (11-32) umol/L Troponin I (0-0.045) ng/ml NT-Pro-B Natriuret Pep (0-900) pg/ml Total Protein (6.4-8.2) gm/dl Albumin (3.4-5.0) gm/dl Globulin (2.5-4.0) gm/dl Albumin/Globulin Ratio (0.9-2) TSH 4.060 (0.300-4.500) uIu/ml Urine Color Urine Appearance (Clear) Urine pH (4.5-7.5) Ur Specific [place] (1.000-1.030) Urine Protein (Negative) Urine Glucose (UA) (Negative) Urine Ketones (Negative) Urine Blood (Negative) Urine Nitrite (Negative) Urine Bilirubin (Negative) Urine Urobilinogen (Negative) Ur Leukocyte Esterase (Negative) Urine WBC (Auto) (0-5) /hpf Urine RBC (Auto) (0-4) /hpf U Hyaline Cast (Auto) (0-5) /lpf U Epithel Cells (Auto) (0-5) /lpf Urine Bacteria (Auto) (Negative) Hepatitis C Ab Screen (Neg) 11/19/18 11/19/18 11/18/18 Range/Units 06:18 06:18 22:10 WBC 5.77 (4.8-10.8) K/uL RBC 3.21 L (4.2-5.4) M/uL Hgb 9.2 L (12.0-16.0) g/dL Hct 29.9 L (37-47) % MCV 93.1 (80-100) fL MCH 28.7 (25-34) pg MCHC 30.8 L (32-36) g/dL RDW Std Deviation 53.7 H (36.4-46.3) fL RDW Coeff of Bhavin 15.9 H (11.5-14.5) % Plt Count 188 (130-400) K/uL MPV 11.2 H (7.4-10.4) fL Immature Gran % (Auto) % Neut % (Auto) % Lymph % (Auto) % [place] % (Auto) % Eos % (Auto) % Baso % (Auto) % Immature Gran # (Auto) (0.00-0.02) K/uL Neut # (Auto) (1.4-6.5) K/uL Lymph # (Auto) (1.2-3.4) K/uL [place] # (Auto) (0.11-0.59) K/uL Eos # (Auto) (0-0.5) K/uL Baso # (Auto) (0-0.2) K/uL PT (9.0-12.0) Seconds INR (0.9-1.1) APTT (21.0-31.0) Seconds PTT Ratio VBG pH (7.36-7.41) VBG pCO2 (38-50) mmHg VBG pO2 mmHg VBG HCO3 mmol/L VBG O2 Saturation % VBG Base Excess mEq/L Barometric Pressure mm/Hg Sodium (136-145) mmol/L Potassium (3.5-5.1) mmol/L Chloride (98-107) mmol/L Carbon Dioxide (21-32) mmol/L Anion Gap (3-11) BUN (7-18) mg/dl Creatinine (0.6-1.2) mg/dl Est Cr Clr Drug Dosing Est GFR ( Amer) Est GFR (Non-Af Amer) BUN/Creatinine Ratio (10-20) Glucose (70-99) mg/dl POC Glucose (70-99) Estimat Average Glucose mg/dl Hemoglobin A1c (4.5-5.6) % Lactate (0.4-2.0) mmol/L Calcium (8.5-10.1) mg/dl Magnesium (1.8-2.4) mg/dl Total Bilirubin (0.2-1) mg/dl AST (15-37) U/L ALT (12-78) U/L Alkaline Phosphatase (45-117) U/L Ammonia (11-32) umol/L Troponin I < 0.015 (0-0.045) ng/ml NT-Pro-B Natriuret Pep (0-900) pg/ml Total Protein (6.4-8.2) gm/dl Albumin (3.4-5.0) gm/dl Globulin (2.5-4.0) gm/dl Albumin/Globulin Ratio (0.9-2) TSH (0.300-4.500) uIu/ml Urine Color Urine Appearance (Clear) Urine pH (4.5-7.5) Ur Specific [place] (1.000-1.030) Urine Protein (Negative) Urine Glucose (UA) (Negative) Urine Ketones (Negative) Urine Blood (Negative) Urine Nitrite (Negative) Urine Bilirubin (Negative) Urine Urobilinogen (Negative) Ur Leukocyte Esterase (Negative) Urine WBC (Auto) (0-5) /hpf Urine RBC (Auto) (0-4) /hpf U Hyaline Cast (Auto) (0-5) /lpf U Epithel Cells (Auto) (0-5) /lpf Urine Bacteria (Auto) (Negative) Hepatitis C Ab Screen Neg (Neg) 11/18/18 11/18/18 11/18/18 Range/Units 22:10 20:34 15:15 WBC (4.8-10.8) K/uL RBC (4.2-5.4) M/uL Hgb (12.0-16.0) g/dL Hct (37-47) % MCV (80-100) fL MCH (25-34) pg MCHC (32-36) g/dL RDW Std Deviation (36.4-46.3) fL RDW Coeff of Bhavin (11.5-14.5) % Plt Count (130-400) K/uL MPV (7.4-10.4) fL Immature Gran % (Auto) % Neut % (Auto) % Lymph % (Auto) % [place] % (Auto) % Eos % (Auto) % Baso % (Auto) % Immature Gran # (Auto) (0.00-0.02) K/uL Neut # (Auto) (1.4-6.5) K/uL Lymph # (Auto) (1.2-3.4) K/uL [place] # (Auto) (0.11-0.59) K/uL Eos # (Auto) (0-0.5) K/uL Baso # (Auto) (0-0.2) K/uL PT (9.0-12.0) Seconds INR (0.9-1.1) APTT (21.0-31.0) Seconds PTT Ratio VBG pH (7.36-7.41) VBG pCO2 (38-50) mmHg VBG pO2 mmHg VBG HCO3 mmol/L VBG O2 Saturation % VBG Base Excess mEq/L Barometric Pressure mm/Hg Sodium (136-145) mmol/L Potassium (3.5-5.1) mmol/L Chloride (98-107) mmol/L Carbon Dioxide (21-32) mmol/L Anion Gap (3-11) BUN (7-18) mg/dl Creatinine (0.6-1.2) mg/dl Est Cr Clr Drug Dosing Est GFR ( Amer) Est GFR (Non-Af Amer) BUN/Creatinine Ratio (10-20) Glucose (70-99) mg/dl POC Glucose 91 (70-99) Estimat Average Glucose mg/dl Hemoglobin A1c (4.5-5.6) % Lactate (0.4-2.0) mmol/L Calcium (8.5-10.1) mg/dl Magnesium (1.8-2.4) mg/dl Total Bilirubin (0.2-1) mg/dl AST (15-37) U/L ALT (12-78) U/L Alkaline Phosphatase (45-117) U/L Ammonia 22.1 (11-32) umol/L Troponin I (0-0.045) ng/ml NT-Pro-B Natriuret Pep (0-900) pg/ml Total Protein (6.4-8.2) gm/dl Albumin (3.4-5.0) gm/dl Globulin (2.5-4.0) gm/dl Albumin/Globulin Ratio (0.9-2) TSH (0.300-4.500) uIu/ml Urine Color Dark Yellow Urine Appearance Clear (Clear) Urine pH 5.0 (4.5-7.5) Ur Specific [place] 1.022 (1.000-1.030) Urine Protein Trace H (Negative) Urine Glucose (UA) Negative (Negative) Urine Ketones Negative (Negative) Urine Blood 2+ H (Negative) Urine Nitrite Negative (Negative) Urine Bilirubin Negative (Negative) Urine Urobilinogen Negative (Negative) Ur Leukocyte Esterase Negative (Negative) Urine WBC (Auto) 1-5 (0-5) /hpf Urine RBC (Auto) 10-30 H (0-4) /hpf U Hyaline Cast (Auto) 1-5 (0-5) /lpf U Epithel Cells (Auto) 0-5 (0-5) /lpf Urine Bacteria (Auto) Negative (Negative) Hepatitis C Ab Screen (Neg) 11/18/18 11/18/18 11/18/18 Range/Units 14:26 14:26 14:26 WBC (4.8-10.8) K/uL RBC (4.2-5.4) M/uL Hgb (12.0-16.0) g/dL Hct (37-47) % MCV (80-100) fL MCH (25-34) pg MCHC (32-36) g/dL RDW Std Deviation (36.4-46.3) fL RDW Coeff of Bhavin (11.5-14.5) % Plt Count (130-400) K/uL MPV (7.4-10.4) fL Immature Gran % (Auto) % Neut % (Auto) % Lymph % (Auto) % [place] % (Auto) % Eos % (Auto) % Baso % (Auto) % Immature Gran # (Auto) (0.00-0.02) K/uL Neut # (Auto) (1.4-6.5) K/uL Lymph # (Auto) (1.2-3.4) K/uL [place] # (Auto) (0.11-0.59) K/uL Eos # (Auto) (0-0.5) K/uL Baso # (Auto) (0-0.2) K/uL PT 10.5 (9.0-12.0) Seconds INR 1.0 (0.9-1.1) APTT 30.6 (21.0-31.0) Seconds PTT Ratio 1.1 VBG pH (7.36-7.41) VBG pCO2 (38-50) mmHg VBG pO2 mmHg VBG HCO3 mmol/L VBG O2 Saturation % VBG Base Excess mEq/L Barometric Pressure mm/Hg Sodium 143 (136-145) mmol/L Potassium 4.1 (3.5-5.1) mmol/L Chloride 115 H (98-107) mmol/L Carbon Dioxide 24 (21-32) mmol/L Anion Gap 4.0 (3-11) BUN 34 H (7-18) mg/dl Creatinine 1.69 H (0.6-1.2) mg/dl Est Cr Clr Drug Dosing Not Reportable Est GFR ( Amer) 34.6 Est GFR (Non-Af Amer) 29.8 BUN/Creatinine Ratio 19.8 (10-20) Glucose 91 (70-99) mg/dl POC Glucose (70-99) Estimat Average Glucose mg/dl Hemoglobin A1c (4.5-5.6) % Lactate 0.6 (0.4-2.0) mmol/L Calcium 8.3 L (8.5-10.1) mg/dl Magnesium 2.3 (1.8-2.4) mg/dl Total Bilirubin 0.3 (0.2-1) mg/dl AST 13 L (15-37) U/L ALT < 6 L (12-78) U/L Alkaline Phosphatase 105 (45-117) U/L Ammonia (11-32) umol/L Troponin I < 0.015 (0-0.045) ng/ml NT-Pro-B Natriuret Pep 2101 H (0-900) pg/ml Total Protein 7.3 (6.4-8.2) gm/dl Albumin 3.5 (3.4-5.0) gm/dl Globulin 3.8 (2.5-4.0) gm/dl Albumin/Globulin Ratio 0.9 (0.9-2) TSH (0.300-4.500) uIu/ml Urine Color Urine Appearance (Clear) Urine pH (4.5-7.5) Ur Specific [place] (1.000-1.030) Urine Protein (Negative) Urine Glucose (UA) (Negative) Urine Ketones (Negative) Urine Blood (Negative) Urine Nitrite (Negative) Urine Bilirubin (Negative) Urine Urobilinogen (Negative) Ur Leukocyte Esterase (Negative) Urine WBC (Auto) (0-5) /hpf Urine RBC (Auto) (0-4) /hpf U Hyaline Cast (Auto) (0-5) /lpf U Epithel Cells (Auto) (0-5) /lpf Urine Bacteria (Auto) (Negative) Hepatitis C Ab Screen (Neg) 11/18/18 11/18/18 Range/Units 14:26 14:26 WBC 5.75 (4.8-10.8) K/uL RBC 3.10 L (4.2-5.4) M/uL Hgb 8.9 L (12.0-16.0) g/dL Hct 29.0 L (37-47) % MCV 93.5 (80-100) fL MCH 28.7 (25-34) pg MCHC 30.7 L (32-36) g/dL RDW Std Deviation 54.3 H (36.4-46.3) fL RDW Coeff of Bhavin 16.0 H (11.5-14.5) % Plt Count 209 (130-400) K/uL MPV 11.4 H (7.4-10.4) fL Immature Gran % (Auto) 0.5 % Neut % (Auto) 71.3 % Lymph % (Auto) 16.2 % [place] % (Auto) 11.0 % Eos % (Auto) 0.0 % Baso % (Auto) 1.0 % Immature Gran # (Auto) 0.03 H (0.00-0.02) K/uL Neut # (Auto) 4.10 (1.4-6.5) K/uL Lymph # (Auto) 0.93 L (1.2-3.4) K/uL [place] # (Auto) 0.63 H (0.11-0.59) K/uL Eos # (Auto) 0.00 (0-0.5) K/uL Baso # (Auto) 0.06 (0-0.2) K/uL PT (9.0-12.0) Seconds INR (0.9-1.1) APTT (21.0-31.0) Seconds PTT Ratio VBG pH 7.29 L (7.36-7.41) VBG pCO2 47 (38-50) mmHg VBG pO2 54 mmHg VBG HCO3 22 mmol/L VBG O2 Saturation 82.7 % VBG Base Excess -4.6 mEq/L Barometric Pressure 730.2 mm/Hg Sodium (136-145) mmol/L Potassium (3.5-5.1) mmol/L Chloride (98-107) mmol/L Carbon Dioxide (21-32) mmol/L Anion Gap (3-11) BUN (7-18) mg/dl Creatinine (0.6-1.2) mg/dl Est Cr Clr Drug Dosing Est GFR ( Amer) Est GFR (Non-Af Amer) BUN/Creatinine Ratio (10-20) Glucose (70-99) mg/dl POC Glucose (70-99) Estimat Average Glucose mg/dl Hemoglobin A1c (4.5-5.6) % Lactate (0.4-2.0) mmol/L Calcium (8.5-10.1) mg/dl Magnesium (1.8-2.4) mg/dl Total Bilirubin (0.2-1) mg/dl AST (15-37) U/L ALT (12-78) U/L Alkaline Phosphatase (45-117) U/L Ammonia (11-32) umol/L Troponin I (0-0.045) ng/ml NT-Pro-B Natriuret Pep (0-900) pg/ml Total Protein (6.4-8.2) gm/dl Albumin (3.4-5.0) gm/dl Globulin (2.5-4.0) gm/dl Albumin/Globulin Ratio (0.9-2) TSH (0.300-4.500) uIu/ml Urine Color Urine Appearance (Clear) Urine pH (4.5-7.5) Ur Specific [place] (1.000-1.030) Urine Protein (Negative) Urine Glucose (UA) (Negative) Urine Ketones (Negative) Urine Blood (Negative) Urine Nitrite (Negative) Urine Bilirubin (Negative) Urine Urobilinogen (Negative) Ur Leukocyte Esterase (Negative) Urine WBC (Auto) (0-5) /hpf Urine RBC (Auto) (0-4) /hpf U Hyaline Cast (Auto) (0-5) /lpf U Epithel Cells (Auto) (0-5) /lpf Urine Bacteria (Auto) (Negative) Hepatitis C Ab Screen (Neg) Diagnostic Findings EKG reviewed on admission demonstrating normal sinus rhythm with left bundle branch block. Upon review of old EKGs, left bundle branch block intermittently present. Repeat chest xray this AM: IMPRESSION: Improvement in the mild interstitial pulmonary edema and trace bilateral pleural effusions. Chest xray on admission: IMPRESSION: Interval progression of the moderate pulmonary edema. Telemetry reviewed: NSR, no arrhythmias. echo completed in August 2018: Preserved LV systolic function, EF 55% moderate LVH no significant valvular heart disease diastolic dysfunction Medications Administered Current Inpatient Medications Acetaminophen (Tylenol) 650 mg PO Q4H PRN PRN Reason: Pain or Fever Stop: 12/18/18 19:34 Al Hydrox/Mg Hydrox/Simethicone (Maalox) 15 ml PO Q4H PRN PRN Reason: Dyspepsia Stop: 12/18/18 19:34 Amlodipine Besylate (Norvasc) 5 mg PO DAILY [facility] Stop: 12/19/18 08:59 Last Admin: 11/19/18 08:39 Dose: 5 mg Documented by: Aspirin (Ecotrin Ectab) 81 mg PO DAILY [facility] Stop: 12/19/18 08:59 Last Admin: 11/19/18 08:40 Dose: 81 mg Documented by: Carbidopa/Levodopa (Sinemet 25/100 Mg) 1 tab PO TID [facility] Stop: 12/18/18 20:59 Last Admin: 11/19/18 08:40 Dose: 1 tab Documented by: Dextrose (Dextrose 50%) 25 - 50 ml IV UD PRN; Protocol PRN Reason: Hypoglycemia Protocol Stop: 12/18/18 19:34 Glucagon (Glucagen) 1 mg SQ UD PRN; Protocol PRN Reason: Hypoglycemia Protocol Stop: 12/18/18 19:34 Glucose (Glucose 40%) 15 - 30 gm PO UD PRN; Protocol PRN Reason: Hypoglycemia Protocol Stop: 12/18/18 19:34 Glucose (Dex4 Glucose) 4 - 8 tabs PO UD PRN; Protocol PRN Reason: Hypoglycemia Protocol Stop: 12/18/18 19:34 Heparin Sodium (Porcine) (Heparin Sodium (Porcine)) 5,000 units SQ Q8 [facility] Stop: 12/18/18 21:59 Last Admin: 11/19/18 06:00 Dose: 5,000 units Documented by: Hydralazine HCl (Apresoline) 25 mg PO TID [facility] Stop: 12/18/18 20:59 Last Admin: 11/19/18 08:39 Dose: 25 mg Documented by: Furosemide 40 mg/ Syringe 4 mls @ 4 mls/min IV [id number] [facility] Stop: 12/18/18 19:59 Last Admin: 11/19/18 08:40 Dose: 4 mls/min Documented by: Insulin Aspart (Novolog Flexpen) 0 units SC ACHS [facility] Stop: 12/18/18 20:59 Last Admin: 11/19/18 08:40 Dose: 1 units Documented by: Levalbuterol HCl (Xopenex 0.63 Mg/3 Ml Neb) 0.63 mg NEB Q6R PRN PRN Reason: Shortness Of Breath Or Wheezin Stop: 12/18/18 19:34 Levothyroxine Sodium (Synthroid) 125 mcg PO DAILYBB [facility] Stop: 12/19/18 06:29 Last Admin: 11/19/18 05:58 Dose: 125 mcg Documented by: Meclizine HCl (Antivert) 25 mg PO TID PRN PRN Reason: Dizziness Stop: 12/18/18 19:34 Metoprolol Tartrate (Lopressor) 25 mg PO BID [facility] Stop: 12/18/18 20:59 Last Admin: 11/19/18 08:40 Dose: 25 mg Documented by: Miscellaneous (Carbohydrates For Hypoglycemia) 15 - 30 gm PO UD PRN PRN Reason: Hypoglycemia Treatment Stop: 12/18/18 19:34 Oxybutynin Chloride (Ditropan Xl) 5 mg PO DAILY [facility] Stop: 12/19/18 08:59 Last Admin: 11/19/18 08:39 Dose: 5 mg Documented by: Polyethylene Glycol (Miralax Powder Packet) 17 gm PO DAILY PRN PRN Reason: Constipation Stop: 12/18/18 19:34 Pravastatin Sodium (Pravachol) 40 mg PO DAILY [facility] Stop: 12/19/18 08:59 Last Admin: 11/19/18 08:39 Dose: 40 mg Documented by: Pregabalin (Lyrica) 100 mg PO BID [facility] Stop: 12/18/18 20:59 Last Admin: 11/19/18 09:42 Dose: Not Given Documented by: Ropinirole HCl (Requip) 4 mg PO HS [facility] Stop: 12/18/18 20:59 Last Admin: 11/18/18 20:26 Dose: 4 mg Documented by: Sulfadiazine (Azulfidine) 1,000 mg PO BID [facility] Stop: 12/18/18 20:59 Last Admin: 11/19/18 08:40 Dose: 1,000 mg Documented by: Terazosin HCl (Hytrin) 5 mg PO HS [facility] Stop: 12/18/18 20:59 Last Admin: 11/18/18 20:27 Dose: 5 mg Documented by: Venlafaxine HCl (Effexor Extended Release) 150 mg PO DAILY [facility] Stop: 12/19/18 08:59 Last Admin: 11/19/18 08:39 Dose: 150 mg Documented by: (1) Hypertension Hypertension type: essential hypertension Qualified Code(s): I10 - Essential (primary) hypertension
[2018-11-19] MEDS ORDERED: POTASSIUM CHLORIDE 20 MEQ TABCR PO ONE (12:30)
--- NOTE | 2018-11-19 15:54 | Hospitalist Progress Note ---
Date of Service November 19, 2018 Assessment & Plan (1) Acute hypoxemic respiratory failure: Acute hypoxic respiratory failure Due to acute decompensated CHF with diastolic heart failure Required BiPAP support in the ER Symptom improved after IV diuresis Transitioned to nasal cannula Continue to monitor Parkinson's disease Continue carbidopa levodopa No acute issues Mnire's disease Meclizine PRN Rheumatoid arthritis Continue sulfasalazine No acute issues RENÉ Continue CPAP at bedtime Hypertension Continue amlodipine, hydralazine, Metoprolol Monitor DM II Diet-controlled Last A1c 5.6 in August 2018 ISS Mood disorder Restless leg syndrome Continue home meds Hypothyroidism Continue levothyroxine (2) Acute on chronic diastolic CHF (congestive heart failure): Presented with volume overload, hypoxia increased lower extremity swelling Acute on chronic diastolic CHF exacerbation CXR:Interval progression of the moderate pulmonary edema. Required BiPAP support, Currently on oxygen via nasal cannula Symptom improved after IV diuresis : Lasix 40 mg IV twice daily Cardiology consulted, appreciate input cont 1500ml/day fluid restriction daily intake /out put daily wt will need to be on oral diuretics on discharge (3) Acute renal failure superimposed on stage 3 chronic kidney disease: SAM on CKD III Baseline Cr: 1.3 Cr: 1.69 improved 1.59 improved after diuresis renal USG cont to monitor BMP , avoid NSAID's and nephrotoxins (4) LBBB (left bundle branch block): chronic Echo: Shows preserved LV systolic function without wall motion abnormalities, no significant valvular heart disease Patient had dobutamine stress echo in 2017 which was negative for stress-induced ischemia Left bundle branch block: Chronic noted in EKG and stress test in 2017 No evidence of ACS Appreciate input from cardiology, recommend continue outpatient cardiac meds (5) Anemia: Chronic Anemia Hb:8.9 Likely dilutional due to volume overload improved to 9.2 Baseline Hb ~12 no evidence of blood loss or GI bleed Lethargy possible metabolic encephalopahty in setting of hypoxia /decompensated CHF Minimize sedative meds Hold beta histamine Decrease Lyrica to 100mg BID Hold Melatonin Subjective Patient reports of feeling better, denies of any shortness of breath no orthopnea Complaints of feeling very tired, Did not get much sleep last night No cough, no fever or chills Physical Exam Constitutional: + obese; no acute distress Eyes: PERRL, conjunctivae normal, anicteric sclerae ENMT: external ear and nose normal, oropharynx normal Neck: trachea midline, no thyromegaly Respiratory: no cough Auscultation: + crackles (At base) Cardiovascular: Rate/Rhythm: regular rate and regular rhythm Vessels: no JVD Extremities: + pedal edema Trace bilateral pedal edema, improved since admission Gastrointestinal (Abdomen): normal bowel sounds, soft, nontender, no hepatosplenomegaly Musculoskeletal: no cyanosis or clubbing, extremities motor strength 5/5 Skin: no rashes, warm and dry Neurologic: PERRL, EOMI, accommodation nl, no face palsy, no dysarthria Psychiatric: A+Ox3, euthymic affect Results & Data Vital Signs (Past 12 Hours) Vital Signs Temp Pulse Resp BP Pulse Ox 11/19/18 11:09 36.9 C 56 L 18 107/49 L 91 11/19/18 10:13 36.4 C L 65 20 127/79 94 11/19/18 08:24 36.4 C L 63 20 149/76 H 94 11/19/18 04:31 36.7 C 55 L 16 146/73 H 91
[2018-11-19] MEDS: ROPINIROLE HCL 1 MG TABLET PO SCH (20:11)
[2018-11-19] MEDS: TERAZOSIN HCL 5 MG CAP PO SCH (20:11)
[2018-11-20] MEDS: HEPARIN SOD 5,000 UNIT/0.5 ML VIAL SQ SCH ×3 (06:08→21:09)
[2018-11-20] MEDS: LEVOTHYROXINE SODIUM 125 MCG TABLET PO SCH (06:08)
[2018-11-20 06:24] LABS: Hematocrit (blood only) 28.8 % (37-47); Hemoglobin 8.8 g/dL (12.0-16.0); Mean Corpuscular Hemoglobin 28.3 pg (25-34); Mean Corpuscular Hgb Conc 30.6 g/dL (32-36); Mean Corpuscular Volume 92.6 fL (80-100); Mean Platelet Volume 11.6 fL (7.4-10.4); Platelet Count 184 K/uL (130-400); RDW Coefficient of Variation 15.8 % (11.5-14.5); RDW Standard Deviation 53.6 fL (36.4-46.3); Red Blood Count 3.11 M/uL (4.2-5.4); White Blood Count 6.72 K/uL (4.8-10.8)
[2018-11-20 07:05] LABS: BUN Creatinine Ratio 18.7 (10-20); Calcium 8.1 mg/dl (8.5-10.1); Creatinine Clr Calc Pharmacy 32.3 ml/min; Est GFR (African American) 31.2; Est GFR (Non-African American) 26.9; Potassium 3.7 mmol/L (3.5-5.1)
[2018-11-20] MEDS: INSULIN ASPART 100 UNITS/ML 3 ML PEN SC SCH ×4 (08:44→21:08)
[2018-11-20] MEDS: OXYBUTYNIN CHLORIDE XL 5 MG TABCR PO SCH (08:45)
[2018-11-20] MEDS: AMLODIPINE BESYLATE 5 MG TAB PO SCH (08:45)
[2018-11-20] MEDS: PRAVASTATIN SOD 40 MG TAB PO SCH (08:45)
[2018-11-20] MEDS: sulfaSALAzine 500 MG TABLET PO SCH ×2 (08:46→21:02)
[2018-11-20] MEDS: METOPROLOL TARTRATE 25 MG TAB PO SCH ×2 (08:46→21:03)
[2018-11-20] MEDS: CARBIDOPA/LEVODOPA 25/100MG TAB PO SCH ×3 (08:47→21:04)
[2018-11-20] MEDS: ASPIRIN 81 MG ECTAB PO SCH (08:47)
[2018-11-20] MEDS: VENLAFAXINE HCL XR 150 MG CAPXR PO SCH (08:47)
[2018-11-20] MEDS: FUROSEMIDE 40 MG in SYRINGE 0 ML IV SCH ×2 (08:48→19:15)
[2018-11-20] MEDS: PREGABALIN 100 MG CAP PO SCH ×2 (08:48→21:07)
--- NOTE | 2018-11-20 16:04 | Cardiology Progress Note ---
Date of Service November 20, 2018 Assessment & Plan (1) Acute diastolic heart failure: Patient presenting with pulm edema/volume overload, likely due to diastolic HF in setting of hypertensive heart disease continue furosemide 40 mg BID Echo reveals normal LV systolic function, grade II diastolic dysfunction, no signfiant valvular disease monitor I+O's 1500 ml fluid restriction Supplement potassium (2) LBBB (left bundle branch block): history of intermittent LBBB in the past Negative cardiac enzymes Not indicative of acute ACS (3) Hypertension: BP controlled continue home medications Supervising Physician Co-Signing Physician Notes Patient seen and examined with Rekha Schmid PA-C. Agree with findings and assessment as above. States that her breathing is still difficult. Hard to determine volume status clinically given patient's body habitus. Cont with lasix bid. General: Awake, alert and oriented x 3. No acute distress. HEENT: Normocephalic, atraumatic. Pupils equal, round and reactive to light and accommodation. Extraocular muscles are intact. Anicteric sclera. Moist mucous membranes. Neck: No JVD. No bruit. Cardiovascular: Regular. Positive S-4. Normal S-1 and S-2. No S-3. 3/6 mid to late systolic ejection murmur, greatest at the right sternal border, second intercostal space with radiation to the bilateral carotids. No rubs. Pulmonary: Clear to auscultation bilaterally. No rales, rhonchi, or wheezing. Abdomen: Bowel sounds x 4, soft. No rebound, guarding or tenderness. No organomegaly. Extremities: No clubbing, cyanosis or edema. +2 pedal pulses bilaterally. Skin: Warm and dry. Subjective Patient sleeping upon entering the room. awakens to voice, but quickly falls back to sleep during conversation. snoring. Not wearing CPAP. In brief conversation, reports she feels "fine". Review of Systems Review of Systems: All systems reviewed & are unremarkable except as noted in HPI & below Physical Exam Constitutional: WD/WN, vitals as above + morbidly obese Respiratory: Auscultation: + diminished lung sounds; no crackles and no rales Cardiovascular: Rate/Rhythm: regular rate and regular rhythm Heart Sounds: no murmur Extremities: + edema (2+ b/l ) Gastrointestinal (Abdomen): normal bowel sounds, soft, nontender, no hepatosplenomegaly Musculoskeletal: no cyanosis or clubbing, extremities motor strength 5/5 Psychiatric: A+Ox3, euthymic affect Affect: + flat affect Results & Data Vital Signs (Past 12 Hours) Vital Signs Temp Pulse Pulse Resp BP Pulse Ox Pulse Ox 11/20/18 15:30 36.3 C L 66 20 134/70 93 11/20/18 14:58 68 11/20/18 12:56 94 11/20/18 10:51 36.7 C 70 20 154/75 H 93 11/20/18 07:41 57 L 11/20/18 07:25 36.6 C 62 20 145/70 H 95 Pulse Ox 11/20/18 15:30 11/20/18 14:58 11/20/18 12:56 93 11/20/18 10:51 11/20/18 07:41 11/20/18 07:25 (1) Hypertension Hypertension type: essential hypertension Qualified Code(s): I10 - Essential (primary) hypertension
--- NOTE | 2018-11-20 18:00 | Hospitalist Progress Note ---
Date of Service November 20, 2018 Assessment & Plan (1) Acute hypoxemic respiratory failure: Present with acute decompensation of chronic diastolic heart failure with volume overload Acute hypoxic respiratory failure due to above Required BiPAP support in the ER Symptom improved after IV diuresis she is continued with the 40 mg IV twice daily At present on nasal cannula, wearing CPAP at night which is chronic Parkinson's disease Continue carbidopa levodopa Mnire's disease Meclizine PRN Rheumatoid arthritis Continue sulfasalazine Stable RENÉ Continue CPAP at bedtime Hypertension Continue amlodipine, hydralazine, Metoprolol DM II Diet-controlled Last A1c 5.6 in August 2018 ISS Mood disorder Restless leg syndrome Hold Requip for sedative effect Hypothyroidism Continue levothyroxine (2) Acute on chronic diastolic CHF (congestive heart failure): Presented with volume overload, hypoxia increased lower extremity swelling Acute on chronic diastolic CHF exacerbation CXR:Interval progression of the moderate pulmonary edema. Required BiPAP support, Currently on oxygen via nasal cannula Symptom improved after IV diuresis : Lasix 40 mg IV twice daily Cardiology consulted, appreciate input cont 1500ml/day fluid restriction daily intake /out put daily wt will need to be on oral diuretics on discharge (3) Acute renal failure superimposed on stage 3 chronic kidney disease: SAM on CKD III Baseline Cr: 1.3 Cr: 1.69 improved 1.59 improved after diuresis renal USG cont to monitor BMP , avoid NSAID's and nephrotoxins (4) LBBB (left bundle branch block): chronic Echo: Shows preserved LV systolic function without wall motion abnormalities, no significant valvular heart disease Patient had dobutamine stress echo in 2017 which was negative for stress-induced ischemia Left bundle branch block: Chronic noted in EKG and stress test in 2017 No evidence of ACS Appreciate input from cardiology, recommend continue outpatient cardiac meds (5) Anemia: Chronic Anemia Hb:8.9 Likely dilutional due to volume overload improved to 9.2 Baseline Hb ~12 no evidence of blood loss or GI bleed Lethargy possible metabolic encephalopahty in setting of hypoxia /decompensated CHF Minimize sedative meds Hold beta histamine Decrease Lyrica to 100mg BID Hold Melatonin Subjective Patient reports of feeling tired, did not get much sleep last night, utilizing CPAP at night is as per nursing, denies of any discomfort no orthopnea no shortness of breath no dyspnea on exertion Physical Exam Constitutional: + obese; no acute distress Eyes: PERRL, conjunctivae normal, anicteric sclerae ENMT: external ear and nose normal, oropharynx normal Neck: trachea midline, no thyromegaly Respiratory: no cough Auscultation: + crackles (At base) Cardiovascular: Rate/Rhythm: regular rate and regular rhythm Vessels: no JVD Extremities: + pedal edema Gastrointestinal (Abdomen): normal bowel sounds, soft, nontender, no hepatosplenomegaly Musculoskeletal: no cyanosis or clubbing, extremities motor strength 5/5 Skin: no rashes, warm and dry Neurologic: PERRL, EOMI, accommodation nl, no face palsy, no dysarthria Psychiatric: A+Ox3, euthymic affect Results & Data Vital Signs (Past 12 Hours) Vital Signs Temp Pulse Pulse Resp BP Pulse Ox Pulse Ox 11/20/18 15:30 36.3 C L 66 20 134/70 93 11/20/18 14:58 68 11/20/18 12:56 94 11/20/18 10:51 36.7 C 70 20 154/75 H 93 11/20/18 07:41 57 L 11/20/18 07:25 36.6 C 62 20 145/70 H 95 Pulse Ox 11/20/18 15:30 11/20/18 14:58 11/20/18 12:56 93 11/20/18 10:51 11/20/18 07:41 11/20/18 07:25
[2018-11-20] MEDS: TERAZOSIN HCL 5 MG CAP PO SCH (21:03)
[2018-11-21] MEDS: LEVOTHYROXINE SODIUM 125 MCG TABLET PO SCH (05:39)
[2018-11-21] MEDS: HEPARIN SOD 5,000 UNIT/0.5 ML VIAL SQ SCH ×3 (05:39→20:16)
[2018-11-21] MEDS: INSULIN ASPART 100 UNITS/ML 3 ML PEN SC SCH ×4 (08:44→20:16)
[2018-11-21] MEDS: sulfaSALAzine 500 MG TABLET PO SCH ×2 (08:44→20:15)
[2018-11-21] MEDS: AMLODIPINE BESYLATE 5 MG TAB PO SCH (08:44)
[2018-11-21] MEDS: ASPIRIN 81 MG ECTAB PO SCH (08:44)
[2018-11-21] MEDS: PRAVASTATIN SOD 40 MG TAB PO SCH (08:45)
[2018-11-21] MEDS: METOPROLOL TARTRATE 25 MG TAB PO SCH ×2 (08:45→20:17)
[2018-11-21] MEDS: OXYBUTYNIN CHLORIDE XL 5 MG TABCR PO SCH (08:45)
[2018-11-21] MEDS: VENLAFAXINE HCL XR 150 MG CAPXR PO SCH (08:45)
[2018-11-21] MEDS: CARBIDOPA/LEVODOPA 25/100MG TAB PO SCH ×3 (08:45→20:15)
[2018-11-21] MEDS: FUROSEMIDE 40 MG in SYRINGE 0 ML IV SCH ×2 (08:46→17:28)
[2018-11-21] MEDS: PREGABALIN 100 MG CAP PO SCH ×2 (08:49→20:20)
[2018-11-21 11:13] LABS: BUN Creatinine Ratio 19.4 (10-20); Calcium 8.4 mg/dl (8.5-10.1); Creatinine Clr Calc Pharmacy 32.7 ml/min; Est GFR (African American) 32.7; Est GFR (Non-African American) 28.2; Potassium 3.5 mmol/L (3.5-5.1)
--- NOTE | 2018-11-21 11:55 | Cardiology Progress Note ---
Date of Service November 21, 2018 Assessment & Plan (1) Acute diastolic heart failure: Patient presenting with pulm edema/volume overload, likely due to diastolic HF in setting of hypertensive heart disease continue furosemide 40 mg BID physical exam difficult to assess volume status given body habitus continues to diurese with additional 4L negative overnight down 7kg since admission will cont lasix (2) LBBB (left bundle branch block): history of intermittent LBBB in the past Negative cardiac enzymes Not indicative of acute ACS (3) Hypertension: BP controlled continue home medications (4) Acute renal failure superimposed on stage 3 chronic kidney disease: follow renal function Subjective Pt seen and examined, once again patient sleeping and states that she's very tired, not currently using BiPap. Doesn't know if breathing improved but still requiring supplemental O2. tele reviewed: sinus rhythm with underlying LBBB Review of Systems Review of Systems: All systems reviewed & are unremarkable except as noted in HPI & below Physical Exam Physical Exam: General: Awake, alert and oriented x 3. No acute distress. HEENT: Normocephalic, atraumatic. Pupils equal, round and reactive to light and accommodation. Extraocular muscles are intact. Anicteric sclera. Moist mucous membranes. Neck: No JVD. No bruit. Cardiovascular: Regular. Positive S-4. Normal S-1 and S-2. No S-3. No murmurs or rubs. Pulmonary: poor airmovement diffusely Abdomen: Bowel sounds x 4, soft. No rebound, guarding or tenderness. No organomegaly. Extremities: No clubbing, cyanosis or edema. +2 pedal pulses bilaterally. Skin: Warm and dry. Results & Data Vital Signs (Past 12 Hours) Vital Signs Temp Pulse Pulse Resp BP Pulse Ox 11/21/18 11:24 36.5 C 58 L 20 105/53 L 98 11/21/18 08:40 66 128/77 11/21/18 07:36 36.6 C 58 L 19 117/63 91 11/21/18 04:36 36.6 C 65 20 113/60 93 11/21/18 00:00 72 (1) Hypertension Hypertension type: essential hypertension Qualified Code(s): I10 - Essential (primary) hypertension
--- NOTE | 2018-11-21 15:15 | Hospitalist Progress Note ---
Date of Service November 21, 2018 Assessment & Plan (1) Acute hypoxemic respiratory failure: Resolved, respite status improved to baseline, Present with acute decompensation of chronic diastolic heart failure with volume overload Acute hypoxic respiratory failure due to above Required BiPAP support in the ER Symptom improved after IV diuresis she is continued with the 40 mg IV twice daily At present on nasal cannula, wearing CPAP at night which is chronic Appreciate input from cardiology, patient is on negative balance, leading to significant improvement in respiratory status Recommend continue IV Lasix 40 twice daily, patient renal function remains at approximate baseline Continue monitor daily weight intake and output Continue Kirby catheter as long as patient receiving IV diuretics Parkinson's disease Continue carbidopa levodopa Mnire's disease Meclizine PRN Rheumatoid arthritis Continue sulfasalazine Stable RENÉ Continue CPAP at bedtime Hypertension Continue amlodipine, hydralazine, Metoprolol DM II Diet-controlled Last A1c 5.6 in August 2018 ISS Mood disorder Restless leg syndrome Hold Requip for sedative effect Hypothyroidism Continue levothyroxine (2) Acute on chronic diastolic CHF (congestive heart failure): Presented with volume overload, hypoxia increased lower extremity swelling Acute on chronic diastolic CHF exacerbation CXR:Interval progression of the moderate pulmonary edema. Required BiPAP support, Currently on oxygen via nasal cannula Symptom improved after IV diuresis : Lasix 40 mg IV twice daily Cardiology consulted, appreciate input cont 1500ml/day fluid restriction daily intake /out put daily wt Continue 40 mg IV Lasix twice daily will need to be on oral diuretics on discharge (3) Acute renal failure superimposed on stage 3 chronic kidney disease: SAM on CKD III Baseline Cr: 1.3 Improved after diuresis Creatinine remains stable to approximate baseline cont to monitor BMP , avoid NSAID's and nephrotoxins (4) LBBB (left bundle branch block): chronic Echo: Shows preserved LV systolic function without wall motion abnormalities, no significant valvular heart disease Patient had dobutamine stress echo in 2017 which was negative for stress-induced ischemia Left bundle branch block: Chronic noted in EKG and stress test in 2017 No evidence of ACS Appreciate input from cardiology, recommend continue outpatient cardiac meds (5) Anemia: Chronic Anemia Hb:8.9 Likely dilutional due to volume overload improved to 9.2 Baseline Hb ~12 no evidence of blood loss or GI bleed Lethargy Resolved, patient is awake and alert, oriented, conversing appropriately Has been able to be out of bed, participate in physical therapy Resented with increased somnolence secondary to possible metabolic encephalopahty in setting of hypoxia /decompensated CHF Minimize sedative meds Hold beta histamine Decrease Lyrica to 100mg BID Hold Melatonin CODE STATUS: Full code DVT prophylaxis: Subcu heparin Disposition: Appreciate input by PT OT, recommend rehab Discussed with patient's and patient herself, does not want to go to acute rehab until next schedule appointment with orthopedics on 12/03/2018 Plan to return home with home health home PT when medically stable Subjective Alert and awake today, conversing comfortably, denies of any orthopnea, no shortness of breath no dyspnea on exertion Feels much better than yesterday Spoke with patient's over the phone: Patient's voiced concern regarding a rehab: Patient follows up with orthopedics at [facility], chronic left hip and knee pain Patient was instructed to avoid strenuous activity/exercise until next orthopedic appointment on 12/03/2018 prefers patient be discharged home with home PT, after orthopedics appointment if needed patient is willing to go to rehab preferably in [facility] Patient and family does not want to go to [facility] as did not had good experience for rehab in the past Physical Exam Constitutional: + obese; no acute distress Eyes: PERRL, conjunctivae normal, anicteric sclerae ENMT: external ear and nose normal, oropharynx normal Neck: trachea midline, no thyromegaly Respiratory: no cough Auscultation: + crackles (At base) Cardiovascular: Rate/Rhythm: regular rate and regular rhythm Vessels: no JVD Extremities: + pedal edema Gastrointestinal (Abdomen): normal bowel sounds, soft, nontender, no hepatosplenomegaly Musculoskeletal: no cyanosis or clubbing, extremities motor strength 5/5 Skin: no rashes, warm and dry Neurologic: PERRL, EOMI, accommodation nl, no face palsy, no dysarthria Psychiatric: A+Ox3, euthymic affect Results & Data Vital Signs (Past 12 Hours) Vital Signs Temp Pulse Resp BP Pulse Ox 11/21/18 14:41 58 L 116/65 11/21/18 11:24 36.5 C 58 L 20 105/53 L 98 11/21/18 08:40 66 128/77 11/21/18 07:36 36.6 C 58 L 19 117/63 91 11/21/18 04:36 36.6 C 65 20 113/60 93
[2018-11-21] MEDS: TERAZOSIN HCL 5 MG CAP PO SCH (20:17)
[2018-11-22] MEDS: LEVOTHYROXINE SODIUM 125 MCG TABLET PO SCH (06:18)
[2018-11-22] MEDS: HEPARIN SOD 5,000 UNIT/0.5 ML VIAL SQ SCH ×3 (06:18→20:36)
[2018-11-22 07:26] LABS: BUN Creatinine Ratio 20.9 (10-20); Calcium 8.5 mg/dl (8.5-10.1); Creatinine Clr Calc Pharmacy 30.1 ml/min; Est GFR (African American) 29.6; Est GFR (Non-African American) 25.6; Potassium 3.9 mmol/L (3.5-5.1)
[2018-11-22] MEDS: INSULIN ASPART 100 UNITS/ML 3 ML PEN SC SCH ×4 (08:21→20:36)
[2018-11-22] MEDS: OXYBUTYNIN CHLORIDE XL 5 MG TABCR PO SCH (08:22)
[2018-11-22] MEDS: METOPROLOL TARTRATE 25 MG TAB PO SCH ×2 (08:22→20:33)
[2018-11-22] MEDS: PRAVASTATIN SOD 40 MG TAB PO SCH (08:23)
[2018-11-22] MEDS: CARBIDOPA/LEVODOPA 25/100MG TAB PO SCH ×3 (08:23→20:33)
[2018-11-22] MEDS: AMLODIPINE BESYLATE 5 MG TAB PO SCH (08:23)
[2018-11-22] MEDS: FUROSEMIDE 40 MG in SYRINGE 0 ML IV SCH (08:23)
[2018-11-22] MEDS: VENLAFAXINE HCL XR 150 MG CAPXR PO SCH (08:23)
[2018-11-22] MEDS: ASPIRIN 81 MG ECTAB PO SCH (08:23)
[2018-11-22] MEDS: sulfaSALAzine 500 MG TABLET PO SCH ×2 (08:23→20:33)
[2018-11-22] MEDS: PREGABALIN 100 MG CAP PO SCH ×2 (08:24→20:33)
--- NOTE | 2018-11-22 12:22 | Cardiology Progress Note ---
Date of Service November 22, 2018 Assessment & Plan (1) Acute diastolic heart failure: Patient presenting with pulm edema/volume overload, likely due to diastolic HF in setting of hypertensive heart disease has diuresed significantly but output and renal function both decreasing will d/c IV lasix will start po lasix 40mg daily along with spironolactone 12.5mg daily will need outpatient follow up (2) LBBB (left bundle branch block): history of intermittent LBBB in the past Negative cardiac enzymes Not indicative of acute ACS (3) Hypertension: BP controlled continue home medications (4) Acute renal failure superimposed on stage 3 chronic kidney disease: follow renal function will require outpatient follow up Subjective Pt seen and examined, again lethargic and sleeping without bipap. O2 weaned off by nursing. States that she feels ok, thinks her breathing has improved. tele reviewed: sinus rhythm with underlying LBBB Review of Systems Review of Systems: All systems reviewed & are unremarkable except as noted in HPI & below Physical Exam Physical Exam: General: Awake, alert and oriented x 3. No acute distress. HEENT: Normocephalic, atraumatic. Pupils equal, round and reactive to light and accommodation. Extraocular muscles are intact. Anicteric sclera. Moist mucous membranes. Neck: No JVD. No bruit. Cardiovascular: Regular. Positive S-4. Normal S-1 and S-2. No S-3. No murmurs or rubs. Pulmonary: Clear to auscultation B/L. No rales, rhonchi or wheezing Abdomen: Bowel sounds x 4, soft. No rebound, guarding or tenderness. No organomegaly. Extremities: No clubbing, cyanosis or edema. +2 pedal pulses bilaterally. Skin: Warm and dry. Results & Data Vital Signs (Past 12 Hours) Vital Signs Temp Pulse Resp BP Pulse Ox 11/22/18 11:29 36.8 C 59 L 20 117/63 11/22/18 10:28 93 11/22/18 08:25 61 11/22/18 07:23 36.7 C 57 L 16 111/63 92 11/22/18 02:52 36.3 C L 59 L 21 115/68 91 (1) Hypertension Hypertension type: essential hypertension Qualified Code(s): I10 - Essential (primary) hypertension
--- NOTE | 2018-11-22 17:47 | Hospitalist Progress Note ---
Date of Service November 22, 2018 Assessment & Plan (1) Acute hypoxemic respiratory failure: Resolved, respite status improved to baseline, No hypoxia no desaturation on ambulation, 2 step exercise done shows no need for home oxygen Patient is stable volume flores Be discharged home with 20 mg Lasix daily Repeat basic metabolic panel in a week to assess renal function Patient is given instruction for repeatedly made salt restricted diet, monitoring of weight at home to prevent decompensation of CHF Cardiology follow-up scheduled with Dr. Diop in clinic on 11/30/2018 at 1:30 PM ,pt Present with acute decompensation of chronic diastolic heart failure with volume overload Acute hypoxic respiratory failure due to above Required BiPAP support in the ER Symptom improved after IV diuresis she is continued with the 40 mg IV twice daily At present on nasal cannula, wearing CPAP at night which is chronic Appreciate input from cardiology, patient is on negative balance, leading to significant improvement in respiratory status IV Lasix discontinued, transition made to p.o. Lasix 20 mg daily Patient is ambulating requiring rolling walker assistance: Baseline, no hypoxia noted on ambulation, step exercise shows no desaturation at rest or ambulation, no need for home oxygen Stable to be discharged home today Parkinson's disease Continue carbidopa levodopa Mnire's disease Meclizine PRN Rheumatoid arthritis Continue sulfasalazine Stable RENÉ Continue CPAP at bedtime Hypertension Continue amlodipine, hydralazine, Metoprolol DM II Diet-controlled Last A1c 5.6 in August 2018 ISS Mood disorder Restless leg syndrome Hold Requip for sedative effect Hypothyroidism Continue levothyroxine (2) Acute on chronic diastolic CHF (congestive heart failure): Compensated, volume status back to baseline Presented with volume overload, hypoxia increased lower extremity swelling Acute on chronic diastolic CHF exacerbation CXR:Interval progression of the moderate pulmonary edema. Required BiPAP support, Currently on oxygen via nasal cannula Symptom improved after IV diuresis : Lasix 40 mg IV twice daily Cardiology consulted, appreciate input cont 1500ml/day fluid restriction daily intake /out put daily wt Treated with 40 mg IV Lasix twice daily To be discharged with p.o. Lasix 20 daily (3) Acute renal failure superimposed on stage 3 chronic kidney disease: SAM on CKD III Baseline Cr: 1.3 Mild elevation of creatinine noted with diuresis Patient is discharged with a lower dose of diuresis 20 mg daily (received inpatient treatment with with Lasix 40 mg IV twice daily) Repeat BMP in a week and clinic avoid NSAID's and nephrotoxins (4) LBBB (left bundle branch block): chronic Echo: Shows preserved LV systolic function without wall motion abnormalities, no significant valvular heart disease Patient had dobutamine stress echo in 2017 which was negative for stress-induced ischemia Left bundle branch block: Chronic noted in EKG and stress test in 2017 No evidence of ACS Appreciate input from cardiology, recommend continue outpatient cardiac meds (5) Anemia: Chronic Anemia Hb:8.9 Likely dilutional due to volume overload improved to 9.2 Baseline Hb ~12 no evidence of blood loss or GI bleed Lethargy Resolved, patient is awake and alert, oriented, conversing appropriately Has been able to be out of bed, participate in physical therapy Resented with increased somnolence secondary to possible metabolic encephalopahty in setting of hypoxia /decompensated CHF CODE STATUS: Full code DVT prophylaxis: Subcu heparin Disposition: Stable to be discharged home today, arrangement made for home health home PT Family physician follow-up with Dr. Mondragon Cardiology follow-up with Dr. Diop on 11/30/2018 Subjective Patient walked on the hallway with rolling walker, with assistant strength coach of respiratory therapist no desaturation noted on ambulation, no dyspnea on exertion, no chest heaviness Patient denies of any cough no wheezing no fever or chills Volume status remains stable, evaluate by cardiology okay to discharge home today Physical Exam Constitutional: + obese; no acute distress Eyes: PERRL, conjunctivae normal, anicteric sclerae ENMT: external ear and nose normal, oropharynx normal Neck: trachea midline, no thyromegaly Respiratory: no cough Cardiovascular: Rate/Rhythm: regular rate and regular rhythm Vessels: no JVD Extremities: + pedal edema Gastrointestinal (Abdomen): normal bowel sounds, soft, nontender, no hepatosplenomegaly Musculoskeletal: no cyanosis or clubbing, extremities motor strength 5/5 Skin: no rashes, warm and dry Neurologic: PERRL, EOMI, accommodation nl, no face palsy, no dysarthria Psychiatric: A+Ox3, euthymic affect Results & Data Vital Signs (Past 12 Hours) Vital Signs Temp Pulse Resp BP Pulse Ox 11/22/18 15:57 36.7 C 65 18 114/71 90 11/22/18 13:50 62 109/63 11/22/18 11:29 36.8 C 59 L 20 117/63 11/22/18 10:28 93 11/22/18 08:25 61 11/22/18 07:23 36.7 C 57 L 16 111/63 92
[2018-11-22] MEDS: TERAZOSIN HCL 5 MG CAP PO SCH (20:33)
[2018-11-23] MEDS: HEPARIN SOD 5,000 UNIT/0.5 ML VIAL SQ SCH ×2 (05:59→13:57)
[2018-11-23] MEDS: LEVOTHYROXINE SODIUM 125 MCG TABLET PO SCH (05:59)
[2018-11-23] MEDS: VENLAFAXINE HCL XR 150 MG CAPXR PO SCH (08:04)
[2018-11-23] MEDS: sulfaSALAzine 500 MG TABLET PO SCH (08:04)
[2018-11-23] MEDS: PRAVASTATIN SOD 40 MG TAB PO SCH (08:04)
[2018-11-23] MEDS: OXYBUTYNIN CHLORIDE XL 5 MG TABCR PO SCH (08:04)
[2018-11-23] MEDS: METOPROLOL TARTRATE 25 MG TAB PO SCH (08:05)
[2018-11-23] MEDS: CARBIDOPA/LEVODOPA 25/100MG TAB PO SCH ×2 (08:05→15:24)
[2018-11-23] MEDS: ASPIRIN 81 MG ECTAB PO SCH (08:05)
[2018-11-23] MEDS: AMLODIPINE BESYLATE 5 MG TAB PO SCH (08:05)
[2018-11-23] MEDS: INSULIN ASPART 100 UNITS/ML 3 ML PEN SC SCH ×3 (08:07→17:47)
[2018-11-23] MEDS: PREGABALIN 100 MG CAP PO SCH (08:10)
--- NOTE | 2018-11-23 11:36 | Cardiology Progress Note ---
Date of Service November 23, 2018 Assessment & Plan (1) Acute diastolic heart failure: Patient presenting with pulm edema/volume overload, likely due to diastolic HF in setting of hypertensive heart disease diuretics held but still negative overnight does not examine as volume overloaded clinically improved would d/c home on lasix 20mg po daily f/u with CHF clinic in 1 week, my office will arrange (2) LBBB (left bundle branch block): history of intermittent LBBB in the past Negative cardiac enzymes Not indicative of acute ACS (3) Hypertension: BP controlled continue home medications (4) Acute renal failure superimposed on stage 3 chronic kidney disease: creat up to 1.9 today would repeat bmp in 1 week as outpatient otherwise, will defer to primary team Subjective Pt seen and examined, oob in chair, most alert I've seen her since admission. States that her breathing is back to baseline. Denies cp, sob, palpitations, lightheadedness or dizziness. tele reviewed: sinus rhythm with underlying LBBB pattern Review of Systems Review of Systems: All systems reviewed & are unremarkable except as noted in HPI & below Physical Exam Physical Exam: General: Awake, alert and oriented x 3. No acute distress. HEENT: Normocephalic, atraumatic. Pupils equal, round and reactive to light and accommodation. Extraocular muscles are intact. Anicteric sclera. Moist mucous membranes. Neck: No JVD. No bruit. Cardiovascular: Regular. Positive S-4. Normal S-1 and S-2. No S-3. No murmurs or rubs. Pulmonary: Clear to auscultation B/L. No rales, rhonchi or wheezing Abdomen: Bowel sounds x 4, soft. No rebound, guarding or tenderness. No organomegaly. Extremities: No clubbing, cyanosis or edema. +2 pedal pulses bilaterally. Skin: Warm and dry. Results & Data Vital Signs (Past 12 Hours) Vital Signs Temp Pulse Pulse Pulse Resp BP Pulse Ox 11/23/18 11:25 36.6 C 57 L 18 109/68 90 11/23/18 08:26 74 11/23/18 08:10 74 11/23/18 07:45 36.7 C 59 L 16 111/52 L 90 11/23/18 02:59 36.7 C 56 L 16 95/57 L 94 09/09/19 00:00 69 11/22/18 23:31 36.7 C 62 16 98/47 L 95 (1) Hypertension Hypertension type: essential hypertension Qualified Code(s): I10 - Essential (primary) hypertension
[2018-11-23 14:19] VITALS: O2SAT 91
[2018-11-23 15:13] VITALS: BP 127/71; TEMP 98.2
--- NOTE | 2018-11-23 18:05 | Discharge Summary ---
Date of Service November 23, 2018 Admission HPI Per Admitting Provider Patient is a 73-year-old female with history of Parkinson's disease, Mnire's disease, rheumatoid arthritis, RENÉ on CPAP, HTN, HLP, CKD III, DM II, Diastolic CHF, Mood disorder, Restless leg syndrome and other problems presents with history of generalized tiredness, weight gain, worsening lower extremity edema, right cough and intermittent dizziness. Patient is a poor historian. Patient was evaluated by PCP today for worsening leg edema, facial swelling, weight gain. As per patient's , patient has been sleeping mostly during the day. He reports a weight gain of about 6 to 7 pounds in the last week. Patient reports associated fatigue, dry cough, Dyspnea on exertion, intermittent dizziness since 1 to 2 weeks duration. Patient was noted to be hypoxic in 80s on room air. No recent medication changes as per patient's . Chest x- ray suggestive of moderate pulmonary edema. Currently patient saturating 93% on 4 L while in ED. No apparent respiratory distress noted. Denies any history of chest pain, shortness of breath at rest, wheezing, hemoptysis, fever, chills, fall, LOC, headache, nausea, vomiting, abdominal pain, diarrhea, dysuria, recent change in medications. Principal Diagnosis ACUTE ON CHRONIC CHF WITH DIASTOLIC HEART FAILURE Discharge Exam Constitutional + obese; no acute distress Eyes PERRL, conjunctivae normal, anicteric sclerae ENMT external ear and nose normal, oropharynx normal Neck trachea midline, no thyromegaly Respiratory no cough Auscultation: + crackles (At base) Cardiovascular Rate/Rhythm: regular rate and regular rhythm Vessels: no JVD Extremities: + pedal edema Gastrointestinal (Abdomen) normal bowel sounds, soft, nontender, no hepatosplenomegaly Musculoskeletal no cyanosis or clubbing, extremities motor strength 5/5 Skin no rashes, warm and dry Neurologic PERRL, EOMI, accommodation nl, no face palsy, no dysarthria Psychiatric A+Ox3, euthymic affect Discharge Data Allergies Allergy/AdvReac Type Severity Reaction Status Date / Time No Known Allergies Allergy Verified 08/21/18 23:03 Consultations 11/18/18 16:13 ED Decision to Admit Stat 11/18/18 19:35 Consult Case Management - Discharge Planning Routine 11/19/18 08:00 Consult Cardiology Routine Ordered Studies 11/19/18 19:35 US renal/blad retro comp Routine Hospital Course (1) Acute hypoxemic respiratory failure: Resolved, respite status improved to baseline, No hypoxia no desaturation on ambulation, 2 step exercise done shows no need for home oxygen Patient is stable volume flores Be discharged home with 20 mg Lasix daily Repeat basic metabolic panel in a week to assess renal function Patient is given instruction for repeatedly made salt restricted diet, monitoring of weight at home to prevent decompensation of CHF Cardiology follow-up scheduled with Dr. Diop in clinic on 11/30/2018 at 1:30 PM ,pt Present with acute decompensation of chronic diastolic heart failure with volume overload Acute hypoxic respiratory failure due to above Required BiPAP support in the ER Symptom improved after IV diuresis she is continued with the 40 mg IV twice daily At present on nasal cannula, wearing CPAP at night which is chronic Appreciate input from cardiology, patient is on negative balance, leading to significant improvement in respiratory status IV Lasix discontinued, transition made to p.o. Lasix 20 mg daily Patient is ambulating requiring rolling walker assistance: Baseline, no hypoxia noted on ambulation, step exercise shows no desaturation at rest or ambulation, no need for home oxygen Stable to be discharged home today Parkinson's disease Continue carbidopa levodopa Mnire's disease Meclizine PRN Rheumatoid arthritis Continue sulfasalazine Stable RENÉ Continue CPAP at bedtime Hypertension Continue amlodipine, hydralazine, Metoprolol DM II Diet-controlled Last A1c 5.6 in August 2018 ISS Mood disorder Restless leg syndrome Hold Requip for sedative effect Hypothyroidism Continue levothyroxine (2) Acute on chronic diastolic CHF (congestive heart failure): Compensated, volume status back to baseline Presented with volume overload, hypoxia increased lower extremity swelling Acute on chronic diastolic CHF exacerbation CXR:Interval progression of the moderate pulmonary edema. Required BiPAP support, Currently on oxygen via nasal cannula Symptom improved after IV diuresis : Lasix 40 mg IV twice daily Cardiology consulted, appreciate input cont 1500ml/day fluid restriction daily intake /out put daily wt Treated with 40 mg IV Lasix twice daily To be discharged with p.o. Lasix 20 daily (3) Acute renal failure superimposed on stage 3 chronic kidney disease: SAM on CKD III Baseline Cr: 1.3 Mild elevation of creatinine noted with diuresis Patient is discharged with a lower dose of diuresis 20 mg daily (received inpatient treatment with with Lasix 40 mg IV twice daily) Repeat BMP in a week and clinic avoid NSAID's and nephrotoxins (4) LBBB (left bundle branch block): chronic Echo: Shows preserved LV systolic function without wall motion abnormalities, no significant valvular heart disease Patient had dobutamine stress echo in 2017 which was negative for stress-induced ischemia Left bundle branch block: Chronic noted in EKG and stress test in 2017 No evidence of ACS Appreciate input from cardiology, recommend continue outpatient cardiac meds (5) Anemia: Chronic Anemia Hb:8.9 Likely dilutional due to volume overload improved to 9.2 Baseline Hb ~12 no evidence of blood loss or GI bleed Lethargy Resolved, patient is awake and alert, oriented, conversing appropriately Has been able to be out of bed, participate in physical therapy Resented with increased somnolence secondary to possible metabolic encephalopahty in setting of hypoxia /decompensated CHF CODE STATUS: Full code DVT prophylaxis: Subcu heparin Disposition: Stable to be discharged home today, arrangement made for home health home PT Family physician follow-up with Dr. Mondragon Cardiology follow-up with Dr. Diop on 11/30/2018 Total Time Total Time Spent Total Time Spent (In Minutes): Approximately 40 minutes Total Time Includes: Examination of the Patient, Discharge Planning, Medication Reconciliation and Communication With Other Providers Discharge Plan Discharge Items Patient Disposition: Home - Self-Care Reason For Visit: VOLUME OVERLOAD Discharge Diagnosis: ACUTE ON CHRONIC CHF WITH DIASTOLIC HEART FAILURE Discharge Goals: Decrease discomfort and Therapeutic intervention Activity: Resume your previous activity Activity Comment: Continue physical therapy at home Weightbearing: Full weightbearing Non-emergency contact: Primary Care Provider Call non-emergency contact if: you have any medication questions Follow-up/Referrals: Zurdo Diop DO [Physician] - 11/30/18 1:30 pm Marcella Mondragon MD [Primary Care Provider] - 11/27/18 11:20 am Diet: Heart Healthy Fluids: 1500ml (6 cups) Other Ambulatory Orders: Basic Metabolic Panel (Routine) Timeframe: 1 Week Location: Determined by Patient Ordered By: Natalya Martinez Add Provider Instructions: Continue to take Lasix 20 mg by mouth daily-water pills to prevent fluid retention/volume overload Avoid addition of salt in your diet prevent fluid retention, Hospital follow-up with [facility] on 11/27/2018 and 11:20 am Cardiology follow-up with Dr. Diop: On 11/30/2018 at 1:30 PM Lab work: Basic metabolic panel in a week Do not take Advil, Aleve, Motrin, naproxen, ibuprofen: These over the counter pain relieve drugs belongs to NSAID : Which can cause worsening of your kidney function Is asked the pharmacist before purchasing [id number] pain medication, if you have any confusion regarding component of the drug Call your Primary Care doctor if any of the following symptoms or problems start or get worse: * Shortness of breath or difficulty breathing * Wake up at night short of breath * Chest pain * Cough * Swelling of your hands, feet, or legs * More fatigued or tired with your normal activity * Palpitations - sudden fast heart beats WEIGHT * Weigh yourself every morning after using the bathroom. * Use the same scale. * Wear the same amount of clothing. * Write your weight down on a chart. * Call your Primary Care doctor if you gain more than 2-3 pounds in 1-2 days. MEDICATIONS * Use this discharge instruction sheet for medication instructions. * Take your medications at the time your doctor ordered. * Do not skip a dose of your medicines. * If you miss a dose of medicine, take it as soon as possible, but DO NOT DOUBLE A DOSE. * Read your medicine information when you get home. * Know all of the side effects of your medicine. If in doubt, ask your pharmacist * Call your Primary Care doctor's office if you have any side effects. * Be sure all of your doctors know what medicine and herbs you take (including cold, flu, and herbal medicine). Take the following with you to your follow-up doctor appointments: * Weight Chart * Medication List * List of questions Do not drink excessive alcohol, beer or wine. Prescriptions: New furosemide [Lasix] 20 mg tablet 20 mg PO DAILY Qty: 30 RF: 3 Continued aspirin 81 mg Tablet,Delayed Release (Dr/Ec) 81 mg PO DAILY RF: 0 sulfasalazine 500 mg Tablet 1,000 mg PO BID RF: 0 pravastatin [Pravachol] 40 mg Tablet 40 mg PO DAILY RF: 0 Betahistine Hydrochloride 16 mg PO BID RF: 0 metformin 500 mg Tablet 500 mg PO DAILY RF: 0 venlafaxine 150 mg capsule,extended release 24hr 150 mg PO DAILY RF: 0 amlodipine 5 mg tablet 5 mg PO DAILY RF: 0 oxybutynin chloride 5 mg tablet extended release 24hr 5 mg PO DAILY RF: 0 carbidopa-levodopa 25-100 mg tablet 1 tab PO TID RF: 0 ropinirole 4 mg tablet extended release 24 hr 4 mg PO HS RF: 0 meclizine 25 mg Tablet 25 mg PO TID PRN (Reason: Dizziness) RF: 0 melatonin 10 mg Capsule 10 mg PO HS RF: 0 cyanocobalamin (vitamin B-12) [Vitamin B-12] 1,000 mcg Tablet 1,000 mcg PO DAILY RF: 0 levothyroxine 125 mcg tablet 125 mcg PO QAM RF: 0 terazosin 10 mg capsule 5 mg PO HS RF: 0 pregabalin [Lyrica] 200 mg capsule 200 mg PO BID Qty: 60 RF: 0 hydralazine 25 mg tablet 25 mg PO TID RF: 0 metoprolol tartrate 25 mg tablet 25 mg PO BID RF: 0 Stand-Alone Forms: [facility] Discharge Orders: Discharge Order (Routine); Ordered 11/23/18 Ordered By: Natalya Martinez Admission Data Admit Date/Time: 11/18/18 18:01 Attending Provider: Natalya Martinez Admit Provider: Marito Gu Primary Care Provider: Marcella Mondragon Other Providers: Marito Gu ; Zurdo Diop Service: Telemetry
[2018-11-23 18:25] VITALS: PULSE 74
== END 2018-11-23 19:13 | disposition home or self-care (01) | DRG 291 ==
LOC: ED 13:42 → 2S 18:01

== ENCOUNTER 2019-08-15 14:47 | Inpatient (IN) ==
--- NOTE | 2019-08-15 15:29 | Emergency Department Note ---
History of Present Illness General Chief complaint: Lethargic Time Seen by Provider: 08/15/19 15:12 Source: patient Mode of arrival: EMS Limitations: other (hard of hearing) History of Present Illness Provider complaint: weakness, headache Onset (ago): day(s) Location: head Radiation: non-radiation Severity: moderate Pain Consistency: + constant Quality: + constant Relieved By: + none Exacerbated By: + none Associated symptoms: + malaise and + weakness; no confusion, no chest pain, no cough, no nausea/vomiting, no shortness of breath and no syncope Treatments prior to arrival: none This is a 73-year-old female who presents the emergency room complaining of weakness, malaise, and headache. Patient states the symptoms started today. She is unsure what time the headache began, states it did not wake her up from sleep. Patient states she felt in her usual state of health yesterday. Patient denies any change in medications. Patient denies any falls or injury. Patient states she did not have a normal appetite today. Patient denies any vomiting or diarrhea. Patient denies any chest pain, trouble breathing, or cough. Patient states she is having a difficult time keeping her eyes open, and she feels it is making her vision blurry. No other recent change in corrective lenses. Patient denies any rhinorrhea, nasal congestion, or sore throat. EMS reported patient's noted she was short of breath today, he called the home health nurse who came and evaluated the patient and found that her room air oxygen saturation was in the 70s. EMS states on their arrival arrival patient appeared to be hypoxic as well and was placed on 4 L via nasal cannula in order to hold patient's oxygen saturations in the 90s. Pt seen during a time of high acuity and national emergency pandemic while wearing PPE. Home Medications Home Medications Medication Instructions Recorded Confirmed Type Betahistine Hydrochloride 16 mg PO BID 11/18/17 08/15/19 History pravastatin [Pravachol] 40 mg PO QPM 11/18/17 08/15/19 History sulfasalazine 1,000 mg PO BID 11/18/17 08/15/19 History amlodipine 5 mg PO QAM 08/21/18 08/15/19 History carbidopa-levodopa 1 tab PO TIDM 08/21/18 08/15/19 History cyanocobalamin (vitamin B-12) 1,000 mcg PO QAM 08/21/18 08/15/19 History [Vitamin B-12] levothyroxine 125 mcg PO QAM 08/21/18 08/15/19 History melatonin 10 mg PO HS 08/21/18 08/15/19 History oxybutynin chloride 5 mg PO QAM 08/21/18 08/15/19 History pregabalin [Lyrica] 200 mg PO BID #60 cap 08/28/18 08/15/19 Rx hydralazine 25 mg PO TID 11/18/18 08/15/19 History metoprolol tartrate 25 mg PO BID 11/18/18 08/15/19 History furosemide 40 mg PO QPM 04/20/19 08/15/19 History ipratropium-albuterol 3 ml INHALATION QID PRN 04/20/19 08/15/19 History terazosin 5 mg PO HS 04/20/19 08/15/19 History bupropion HCl 75 mg PO Q12H 08/15/19 08/15/19 History furosemide 60 mg PO QAM 08/15/19 08/15/19 History potassium chloride 40 meq PO QAM 08/15/19 08/15/19 History pramipexole 0.25 mg PO QPM 08/15/19 08/15/19 History venlafaxine 75 mg PO QAM 08/15/19 08/15/19 History Allergies Allergy/AdvReac Type Severity Reaction Status Date / Time No Known Allergies Allergy Verified 08/15/19 15:34 Past Med/Surg History Medical History CKD (chronic kidney disease), stage III Depression Diabetes mellitus, type II DM type 2 (diabetes mellitus, type 2) Dyslipidemia Generalized anxiety disorder HTN (hypertension) Hypothyroidism Meniere's disease RENÉ on CPAP Restless leg syndrome Rheumatoid arthritis Subdural hematoma (Inactive) Surgical History H/O sinus surgery History of carpal tunnel surgery History of tubal ligation Hx of total knee arthroplasty "Left, Dr. 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 and A total of 10 systems reviewed and were otherwise negative Physical Exam Vital Signs Vital Signs - 24 hr 08/15/19 14:53 08/15/19 14:56 08/15/19 14:59 Temperature 37.0 C Temperature Source Oral Pulse Rate 83 82 82 Pulse Rate from SpO2 Sensor 83 82 Respiratory Rate 17 18 18 Blood Pressure 136/51 L 136/51 L Blood Pressure Mean 73 79 Pulse Oximetry 96 96 97 Oxygen Delivery Method Nasal Cannula Oxygen Flow Rate 4 Sepsis Recent Fever Within 48 Hours No Sepsis New/Unexplained Change in Mental Status No Sepsis Action Taken by Nursing No Action Required Oxygen Flow Rate - Titration Pulse Oximetry Post Tiitration 08/15/19 15:00 08/15/19 15:10 08/15/19 15:20 Temperature Temperature Source Pulse Rate 83 81 81 Pulse Rate from SpO2 Sensor 83 81 80 Respiratory Rate 19 19 21 Blood Pressure 149/72 H Blood Pressure Mean 93 Pulse Oximetry 96 96 98 Oxygen Delivery Method Oxygen Flow Rate Sepsis Recent Fever Within 48 Hours Sepsis New/Unexplained Change in Mental Status Sepsis Action Taken by Nursing Oxygen Flow Rate - Titration Pulse Oximetry Post Tiitration 08/15/19 15:30 08/15/19 15:40 08/15/19 15:56 Temperature Temperature Source Pulse Rate 79 85 78 Pulse Rate from SpO2 Sensor 80 87 79 Respiratory Rate 22 22 21 Blood Pressure Blood Pressure Mean Pulse Oximetry 97 99 Oxygen Delivery Method Oxygen Flow Rate Sepsis Recent Fever Within 48 Hours Sepsis New/Unexplained Change in Mental Status Sepsis Action Taken by Nursing Oxygen Flow Rate - Titration Pulse Oximetry Post Tiitration 08/15/19 16:00 08/15/19 16:01 08/15/19 16:10 Temperature Temperature Source Pulse Rate 79 82 76 Pulse Rate from SpO2 Sensor 79 82 77 Respiratory Rate 22 22 20 Blood Pressure 138/73 Blood Pressure Mean 101 Pulse Oximetry 99 98 99 Oxygen Delivery Method Oxygen Flow Rate Sepsis Recent Fever Within 48 Hours Sepsis New/Unexplained Change in Mental Status Sepsis Action Taken by Nursing Oxygen Flow Rate - Titration Pulse Oximetry Post Tiitration 08/15/19 16:20 08/15/19 16:30 08/15/19 16:31 Temperature Temperature Source Pulse Rate 80 77 79 Pulse Rate from SpO2 Sensor 79 79 76 Respiratory Rate 20 19 20 Blood Pressure 106/84 Blood Pressure Mean 93 Pulse Oximetry 99 99 100 Oxygen Delivery Method Oxygen Flow Rate Sepsis Recent Fever Within 48 Hours Sepsis New/Unexplained Change in Mental Status Sepsis Action Taken by Nursing Oxygen Flow Rate - Titration Pulse Oximetry Post Tiitration 08/15/19 16:40 08/15/19 17:07 08/15/19 17:57 Temperature Temperature Source Pulse Rate 80 81 Pulse Rate from SpO2 Sensor 81 80 Respiratory Rate 17 20 Blood Pressure Blood Pressure Mean Pulse Oximetry 98 95 99 Oxygen Delivery Method Nasal Cannula Oxygen Flow Rate 3 Sepsis Recent Fever Within 48 Hours Sepsis New/Unexplained Change in Mental Status Sepsis Action Taken by Nursing Oxygen Flow Rate - Titration 2 Pulse Oximetry Post Tiitration 99 GENERAL: alert, well appearing, well nourished, no distress, non-toxic EYE EXAM: normal conjunctiva, PRRLA and EOM's grossly intact, left pupil slightly larger than the right but still reactive, pt's states she has been told her pupils were unequal previousuly, no true ptosis, no proptosis, conjugate gaze OROPHARYNX: no exudate, no erythema, lips, buccal mucosa, and tongue normal and mucous membranes are moist NECK: supple, no nuchal rigidity, no adenopathy, non-tender LUNGS: Clear to auscultation. Normal chest wall mechanics, no w/r/r HEART: no murmurs, S1 normal and S2 normal ABDOMEN: abdomen soft, non-tender, normo-active bowel sounds, no masses, no rebound or guarding. BACK: Back is symmetrical on inspection and there is no deformity, no midline tenderness, no CVA tenderness. SKIN: no rashes and no bruising, no petechiae UPPER EXTREMITIES: upper extremities are grossly normal. FROM, nml pulses b/l. LOWER EXTREMITIES: No pitting edema. FROM, nml pulses b/l. NEURO EXAM: Normal sensorium, cranial nerves II-XII grossly intact, normal speech, no gross weakness of arms, no gross weakness of legs. Gross sensation intact. Course Course 171: Left voicemail for . 172: I updated pt at bedside. 1723: Wesley, pt's returned call. States she has had pneumonia previ ously. States yesterday pt was fine. Pt has only been home from rehab for 1 week. He states today she sounded wheezy to home. Today seemed very tired and weak. He states her oxygen this am was 79%. She did a neb tx and it came up to 88%, then started to drift back down again. States he noticed that her legs were swollen this am also. He gave her betahistine for her Menierre's disease to the ED and gave it to nursing staff. 180: Case discussed with Dr. Martinez. She agrees with additional of blood cultures, mrsa swab, covid testing. Vancomycin added. Administered Medications Acetaminophen (Tylenol) 650 mg PO Q4H PRN PRN Reason: Pain or Fever Stop: 09/14/19 22:36 Last Admin: 08/17/19 08:42 Dose: 650 mg Documented by: [id number] Amlodipine Besylate (Norvasc) 5 mg PO QAM [facility] Stop: 09/15/19 08:59 Last Admin: 08/17/19 08:43 Dose: 5 mg Documented by: [id number] Admin: 08/16/19 10:29 Dose: Not Given Documented by: [id number] Bupropion HCl (Wellbutrin) 75 mg PO Q12 [facility] Stop: 09/14/19 22:36 Last Admin: 08/17/19 08:43 Dose: 75 mg Documented by: [id number] Admin: 08/16/19 20:24 Dose: 75 mg Documented by: [id number] Admin: 08/16/19 10:29 Dose: Not Given Documented by: [id number] Admin: 08/15/19 23:47 Dose: Not Given Documented by: [id number] Carbidopa/Levodopa (Sinemet 25/100 Mg) 1 tab PO TIDM [facility] Stop: 09/15/19 07:59 Last Admin: 08/17/19 18:14 Dose: 1 tab Documented by: [id number] Admin: 08/17/19 13:00 Dose: 1 tab Documented by: [id number] Admin: 08/17/19 08:44 Dose: 1 tab Documented by: [id number] Admin: 08/16/19 17:26 Dose: Not Given Documented by: [id number] Admin: 08/16/19 11:33 Dose: Not Given Documented by: [id number] Admin: 08/16/19 10:29 Dose: Not Given Documented by: [id number] Cyanocobalamin (Vitamin B-12) 1,000 mcg PO QAM [facility] Stop: 09/15/19 08:59 Last Admin: 08/17/19 08:43 Dose: 1,000 mcg Documented by: [id number] Admin: 08/16/19 10:29 Dose: Not Given Documented by: [id number] Furosemide (Lasix) 60 mg PO BID17 [facility] Stop: 09/16/19 16:59 Last Admin: 08/17/19 18:13 Dose: 60 mg Documented by: [id number] Heparin Sodium (Porcine) (Heparin Sodium (Porcine)) 5,000 units SQ Q8 [facility] Stop: 09/14/19 22:36 Last Admin: 08/17/19 13:08 Dose: 5,000 units Documented by: [id number] Cosigned by: [id number] Admin: 08/17/19 05:43 Dose: 5,000 units Documented by: [id number] Cosigned by: [id number] Admin: 08/16/19 20:24 Dose: 5,000 units Documented by: [id number] Cosigned by: [id number] Admin: 08/16/19 13:49 Dose: 5,000 units Documented by: [id number] Cosigned by: [id number] Admin: 08/16/19 06:18 Dose: 5,000 units Documented by: [id number] Cosigned by: [id number] Admin: 08/15/19 23:49 Dose: 5,000 units Documented by: [id number] Cosigned by: [id number] Hydralazine HCl (Apresoline) 25 mg PO TID [facility] Stop: 09/15/19 08:59 Last Admin: 08/17/19 13:00 Dose: 25 mg Documented by: [id number] Admin: 08/17/19 08:45 Dose: 25 mg Documented by: [id number] Admin: 08/16/19 20:24 Dose: 25 mg Documented by: [id number] Admin: 08/16/19 11:33 Dose: Not Given Documented by: [id number] Admin: 08/16/19 10:29 Dose: Not Given Documented by: [id number] Ceftriaxone Sodium 2,000 mg/ (Dextrose) 70 mls @ 100 mls/hr IV Q24H [facility]; Protocol Stop: 08/21/19 16:41 Last Infusion: 08/17/19 16:48 Dose: 0 mls/hr Documented by: [id number] Admin: 08/17/19 16:06 Dose: 100 mls/hr Documented by: [id number] Infusion: 08/16/19 19:01 Dose: 0 mls/hr Documented by: [id number] Admin: 08/16/19 17:25 Dose: 100 mls/hr Documented by: [id number] Doxycycline Hyclate 100 mg/ (Dextrose) 110 mls @ 50 mls/hr IV Q12H [facility] Stop: 08/23/19 00:00 Last Infusion: 08/17/19 15:19 Dose: 0 mls/hr Documented by: [id number] Admin: 08/17/19 13:07 Dose: 50 mls/hr Documented by: [id number] Infusion: 08/17/19 02:23 Dose: 0 mls/hr Documented by: [id number] Admin: 08/17/19 00:11 Dose: 50 mls/hr Documented by: [id number] Infusion: 08/16/19 13:58 Dose: 0 mls/hr Documented by: [id number] Admin: 08/16/19 11:33 Dose: 50 mls/hr Documented by: [id number] Infusion: 08/16/19 02:00 Dose: 50 mls/hr Documented by: [id number] Admin: 08/15/19 23:48 Dose: 50 mls/hr Documented by: [id number] Insulin Aspart (Novolog Flexpen) 0 units SC ACHS [facility] Stop: 09/15/19 07:29 Last Admin: 08/17/19 18:21 Dose: Not Given Documented by: [id number] Cosigned by: [id number] Admin: 08/17/19 13:08 Dose: Not Given Documented by: [id number] Cosigned by: [id number] Admin: 08/17/19 07:45 Dose: Not Given Documented by: [id number] Cosigned by: [id number] Admin: 08/16/19 20:38 Dose: Not Given Documented by: [id number] Cosigned by: [id number] Admin: 08/16/19 16:53 Dose: Not Given Documented by: [id number] Cosigned by: [id number] Admin: 08/16/19 11:33 Dose: Not Given Documented by: [id number] Cosigned by: [id number] Admin: 08/16/19 09:40 Dose: Not Given Documented by: [id number] Cosigned by: [id number] Isosorbide Dinitrate (Isordil) 10 mg PO TID@0700,1200,1700 [facility] Stop: 09/16/19 11:59 Last Admin: 08/17/19 18:14 Dose: 10 mg Documented by: [id number] Admin: 08/17/19 12:59 Dose: 10 mg Documented by: [id number] Levothyroxine Sodium (Synthroid) 125 mcg PO DAILYBB [facility] Stop: 09/15/19 06:29 Last Admin: 08/17/19 05:43 Dose: 125 mcg Documented by: [id number] Admin: 08/16/19 06:17 Dose: Not Given Documented by: [id number] Melatonin (Melatonin) 9 mg PO HS [facility] Stop: 09/15/19 20:59 Last Admin: 08/16/19 20:25 Dose: Not Given Documented by: [id number] ~Betahistine ~~ Non- Formulary Patient's Own Med 1 ea PO BID [facility] Stop: 09/15/19 20:59 Last Admin: 08/17/19 08:45 Dose: 1 cap Documented by: [id number] Admin: 08/16/19 20:25 Dose: Not Given Documented by: [id number] Oxybutynin Chloride (Ditropan Xl) 5 mg PO QAM [facility] Stop: 09/15/19 08:59 Last Admin: 08/17/19 08:45 Dose: 5 mg Documented by: [id number] Admin: 08/16/19 10:29 Dose: Not Given Documented by: [id number] Pramipexole Dihydrochloride (Mirapex) 0.25 mg PO QPM [facility] Stop: 09/15/19 20:59 Last Admin: 08/16/19 20:24 Dose: 0.25 mg Documented by: [id number] Pravastatin Sodium (Pravachol) 40 mg PO QPM [facility] Stop: 09/15/19 20:59 Last Admin: 08/16/19 20:24 Dose: 40 mg Documented by: [id number] Pregabalin (Lyrica) 200 mg PO BID [facility] Stop: 09/15/19 08:59 Last Admin: 08/17/19 08:42 Dose: 200 mg Documented by: [id number] Admin: 08/16/19 20:25 Dose: Not Given Documented by: [id number] Admin: 08/16/19 09:44 Dose: Not Given Documented by: [id number] Terazosin HCl (Hytrin) 5 mg PO HS [facility] Stop: 09/15/19 20:59 Last Admin: 08/16/19 20:24 Dose: 5 mg Documented by: [id number] Venlafaxine HCl (Effexor Extended Release) 75 mg PO QAM [facility] Stop: 09/15/19 08:59 Last Admin: 08/17/19 08:44 Dose: 75 mg Documented by: [id number] Admin: 08/16/19 10:29 Dose: Not Given Documented by: [id number] Discontinued Medications Furosemide (Lasix) 40 mg IV NOW STA Stop: 08/15/19 17:38 Last Admin: 08/15/19 17:54 Dose: 40 mg Documented by: [id number] Furosemide (Lasix) 60 mg PO NOW ONE Stop: 08/17/19 09:31 Last Admin: 08/17/19 12:59 Dose: 60 mg Documented by: [id number] Sodium Chloride (Nss 1000ml) 1,000 mls @ 125 mls/hr IV .Q8H [facility] Stop: 09/14/19 15:29 Last Infusion: 08/15/19 22:05 Dose: 0 mls/hr Documented by: [id number] Admin: 08/15/19 15:57 Dose: 125 mls/hr Documented by: [id number] Ceftriaxone Sodium (Rocephin) 2,000 mg in 70 mls @ 140 mls/hr IV NOW STA Stop: 08/15/19 16:57 Last Infusion: 08/15/19 17:40 Dose: 0 mls/hr Documented by: [id number] Admin: 08/15/19 17:09 Dose: 140 mls/hr Documented by: [id number] Azithromycin 500 mg/ Dextrose 255 mls @ 125 mls/hr IV ONE ONE Stop: 08/15/19 18:51 Last Infusion: 08/15/19 22:06 Dose: 0 mls/hr Documented by: [id number] Admin: 08/15/19 18:44 Dose: 125 mls/hr Documented by: [id number] Vancomycin HCl 2,250 mg/ (Sodium Chloride) 545 mls @ 200 mls/hr IV NOW ONE Stop: 08/15/19 20:47 Last Infusion: 08/15/19 21:28 Dose: 200 mls/hr Documented by: [id number] Admin: 08/15/19 18:44 Dose: 200 mls/hr Documented by: [id number] Furosemide 40 mg/ Syringe 4 mls @ 4 mls/min IV BID17 [facility] Stop: 09/15/19 08:59 Last Admin: 08/16/19 17:29 Dose: 4 mls/min Documented by: [id number] Admin: 08/16/19 10:19 Dose: 4 mls/min Documented by: [id number] Miscellaneous (Order Awaiting Action) 1 ea N/A QS [facility] Stop: 09/15/19 00:00 Last Admin: 08/16/19 11:34 Dose: Not Given Documented by: [id number] Admin: 08/16/19 09:41 Dose: Not Given Documented by: [id number] Admin: 08/16/19 01:18 Dose: Not Given Documented by: [id number] Potassium Chloride (Klor-Con M20) 40 meq PO NOW ONE Stop: 08/17/19 09:32 Last Admin: 08/17/19 12:59 Dose: 40 meq Documented by: [id number] Medical Decision Making Differential Diagnosis Differential Diagnosis includes but is not limited to dehydration, stroke, anemia, hypoglycemia, hyponatremia, hypernatremia, urinary tract infection, pneumonia, bronchitis, sepsis, gastroenteritis, additional abdominal pathology, metabolic abnormalities and infections. Medical Records Attestation: I reviewed the patient's medical records. Home Medications Current Medication List: was personally reviewed by me Laboratory Data Attestation: I reviewed the patient's lab results. Result diagrams: 08/17/19 06:11 08/17/19 06:11 Lab Results 08/15/19 08/15/19 08/15/19 Range/Units 15:08 15:08 15:08 WBC 9.45 (4.8-10.8) K/uL RBC 3.06 L (4.2-5.4) M/uL Hgb 9.0 L (12.0-16.0) g/dL Hct 28.9 L (37-47) % MCV 94.4 (80-100) fL MCH 29.4 (25-34) pg MCHC 31.1 L (32-36) g/dL RDW Std Deviation 52.6 H (36.4-46.3) fL RDW Coeff of Bhavin 15.5 H (11.5-14.5) % Plt Count 218 (130-400) K/uL MPV 10.8 H (7.4-10.4) fL Immature Gran % (Auto) 1.4 % Neut % (Auto) 79.3 % Lymph % (Auto) 6.5 % [place] % (Auto) 10.6 % Eos % (Auto) 2.0 % Baso % (Auto) 0.2 % Immature Gran # (Auto) 0.13 H (0.00-0.02) K/uL Neut # (Auto) 7.50 H (1.4-6.5) K/uL Lymph # (Auto) 0.61 L (1.2-3.4) K/uL [place] # (Auto) 1.00 H (0.11-0.59) K/uL Eos # (Auto) 0.19 (0-0.5) K/uL Baso # (Auto) 0.02 (0-0.2) K/uL ESR 68 H (0-21) mm/hr D-Dimer (0-500) ug/L FEU ABG pH (7.35-7.45) ABG pCO2 (35-46) mmHg ABG pO2 (80-95) mmHg ABG HCO3 (19-24) mmol/L ABG O2 Saturation (90-95) % ABG Base Excess (-9-1.8) mEq/L Richard Test (Pos) Barometric Pressure mm/Hg Oxygen Given Sodium 142 (136-145) mmol/L Potassium 4.0 (3.5-5.1) mmol/L Chloride 110 H (98-107) mmol/L Carbon Dioxide 24 (21-32) mmol/L Anion Gap 8.0 (3-11) BUN 41 H (7-18) mg/dl Creatinine 2.52 H (0.6-1.2) mg/dl Est Cr Clr Drug Dosing 23.2 ml/min Est GFR ( Amer) 21.3 Est GFR (Non-Af Amer) 18.4 BUN/Creatinine Ratio 16.3 (10-20) Glucose 120 H (70-99) mg/dl Calcium 8.2 L (8.5-10.1) mg/dl Magnesium 2.2 (1.8-2.4) mg/dl Total Bilirubin 0.3 (0.2-1) mg/dl AST 13 L (15-37) U/L ALT 8 L (12-78) U/L Alkaline Phosphatase 118 H (45-117) U/L Troponin I 0.023 (0-0.045) ng/ml NT-Pro-B Natriuret Pep 7870 H (0-900) pg/ml Total Protein 7.9 (6.4-8.2) gm/dl Albumin 3.3 L (3.4-5.0) gm/dl Globulin 4.6 H (2.5-4.0) gm/dl Albumin/Globulin Ratio 0.7 L (0.9-2) Lipase 48 L (73-393) U/L Procalcitonin (0-0.5) ng/ml TSH 3.380 (0.300-4.500) uIu/ml Urine Color Urine Appearance (Clear) Urine pH (4.5-7.5) Ur Specific [place] (1.000-1.030) Urine Protein (Negative) Urine Glucose (UA) (Negative) Urine Ketones (Negative) Urine Blood (Negative) Urine Nitrite (Negative) Urine Bilirubin (Negative) Urine Urobilinogen (Negative) Ur Leukocyte Esterase (Negative) Urine WBC (Auto) (0-5) /hpf Urine RBC (Auto) (0-4) /hpf U Hyaline Cast (Auto) (0-5) /lpf U Epithel Cells (Auto) (0-5) /lpf Urine Bacteria (Auto) (Negative) Nasal Screen MRSA (PCR) (Negative) COVID-19 PCR (Negative) Hepatitis C Ab Screen (Neg) Influenza Type A (PCR) (Neg) Influenza Type B (PCR) (Neg) SARS-CoV-2 RNA (RT-PCR) 08/15/19 08/15/19 08/15/19 Range/Units 15:08 15:08 15:08 WBC (4.8-10.8) K/uL RBC (4.2-5.4) M/uL Hgb (12.0-16.0) g/dL Hct (37-47) % MCV (80-100) fL MCH (25-34) pg MCHC (32-36) g/dL RDW Std Deviation (36.4-46.3) fL RDW Coeff of Bhavin (11.5-14.5) % Plt Count (130-400) K/uL MPV (7.4-10.4) fL Immature Gran % (Auto) % Neut % (Auto) % Lymph % (Auto) % [place] % (Auto) % Eos % (Auto) % Baso % (Auto) % Immature Gran # (Auto) (0.00-0.02) K/uL Neut # (Auto) (1.4-6.5) K/uL Lymph # (Auto) (1.2-3.4) K/uL [place] # (Auto) (0.11-0.59) K/uL Eos # (Auto) (0-0.5) K/uL Baso # (Auto) (0-0.2) K/uL ESR (0-21) mm/hr D-Dimer 2170 H* (0-500) ug/L FEU ABG pH (7.35-7.45) ABG pCO2 (35-46) mmHg ABG pO2 (80-95) mmHg ABG HCO3 (19-24) mmol/L ABG O2 Saturation (90-95) % ABG Base Excess (-9-1.8) mEq/L Richard Test (Pos) Barometric Pressure mm/Hg Oxygen Given Sodium (136-145) mmol/L Potassium (3.5-5.1) mmol/L Chloride (98-107) mmol/L Carbon Dioxide (21-32) mmol/L Anion Gap (3-11) BUN (7-18) mg/dl Creatinine (0.6-1.2) mg/dl Est Cr Clr Drug Dosing ml/min Est GFR ( Amer) Est GFR (Non-Af Amer) BUN/Creatinine Ratio (10-20) Glucose (70-99) mg/dl Calcium (8.5-10.1) mg/dl Magnesium (1.8-2.4) mg/dl Total Bilirubin (0.2-1) mg/dl AST (15-37) U/L ALT (12-78) U/L Alkaline Phosphatase (45-117) U/L Troponin I (0-0.045) ng/ml NT-Pro-B Natriuret Pep (0-900) pg/ml Total Protein (6.4-8.2) gm/dl Albumin (3.4-5.0) gm/dl Globulin (2.5-4.0) gm/dl Albumin/Globulin Ratio (0.9-2) Lipase (73-393) U/L Procalcitonin 0.12 (0-0.5) ng/ml TSH (0.300-4.500) uIu/ml Urine Color Urine Appearance (Clear) Urine pH (4.5-7.5) Ur Specific [place] (1.000-1.030) Urine Protein (Negative) Urine Glucose (UA) (Negative) Urine Ketones (Negative) Urine Blood (Negative) Urine Nitrite (Negative) Urine Bilirubin (Negative) Urine Urobilinogen (Negative) Ur Leukocyte Esterase (Negative) Urine WBC (Auto) (0-5) /hpf Urine RBC (Auto) (0-4) /hpf U Hyaline Cast (Auto) (0-5) /lpf U Epithel Cells (Auto) (0-5) /lpf Urine Bacteria (Auto) (Negative) Nasal Screen MRSA (PCR) (Negative) COVID-19 PCR (Negative) Hepatitis C Ab Screen Neg (Neg) Influenza Type A (PCR) (Neg) Influenza Type B (PCR) (Neg) SARS-CoV-2 RNA (RT-PCR) 08/15/19 08/15/19 08/15/19 Range/Units 15:58 18:00 18:55 WBC (4.8-10.8) K/uL RBC (4.2-5.4) M/uL Hgb (12.0-16.0) g/dL Hct (37-47) % MCV (80-100) fL MCH (25-34) pg MCHC (32-36) g/dL RDW Std Deviation (36.4-46.3) fL RDW Coeff of Bhavin (11.5-14.5) % Plt Count (130-400) K/uL MPV (7.4-10.4) fL Immature Gran % (Auto) % Neut % (Auto) % Lymph % (Auto) % [place] % (Auto) % Eos % (Auto) % Baso % (Auto) % Immature Gran # (Auto) (0.00-0.02) K/uL Neut # (Auto) (1.4-6.5) K/uL Lymph # (Auto) (1.2-3.4) K/uL [place] # (Auto) (0.11-0.59) K/uL Eos # (Auto) (0-0.5) K/uL Baso # (Auto) (0-0.2) K/uL ESR (0-21) mm/hr D-Dimer (0-500) ug/L FEU ABG pH 7.39 (7.35-7.45) ABG pCO2 41 (35-46) mmHg ABG pO2 88 (80-95) mmHg ABG HCO3 24 (19-24) mmol/L ABG O2 Saturation 95.2 H (90-95) % ABG Base Excess -1.0 (-9-1.8) mEq/L Richard Test POS (Pos) Barometric Pressure 735.2 mm/Hg Oxygen Given 4L O2 Sodium (136-145) mmol/L Potassium (3.5-5.1) mmol/L Chloride (98-107) mmol/L Carbon Dioxide (21-32) mmol/L Anion Gap (3-11) BUN (7-18) mg/dl Creatinine (0.6-1.2) mg/dl Est Cr Clr Drug Dosing ml/min Est GFR ( Amer) Est GFR (Non-Af Amer) BUN/Creatinine Ratio (10-20) Glucose (70-99) mg/dl Calcium (8.5-10.1) mg/dl Magnesium (1.8-2.4) mg/dl Total Bilirubin (0.2-1) mg/dl AST (15-37) U/L ALT (12-78) U/L Alkaline Phosphatase (45-117) U/L Troponin I (0-0.045) ng/ml NT-Pro-B Natriuret Pep (0-900) pg/ml Total Protein (6.4-8.2) gm/dl Albumin (3.4-5.0) gm/dl Globulin (2.5-4.0) gm/dl Albumin/Globulin Ratio (0.9-2) Lipase (73-393) U/L Procalcitonin (0-0.5) ng/ml TSH (0.300-4.500) uIu/ml Urine Color Yellow Urine Appearance Clear (Clear) Urine pH 5.0 (4.5-7.5) Ur Specific [place] 1.015 (1.000-1.030) Urine Protein Trace H (Negative) Urine Glucose (UA) Negative (Negative) Urine Ketones Negative (Negative) Urine Blood 3+ H (Negative) Urine Nitrite Negative (Negative) Urine Bilirubin Negative (Negative) Urine Urobilinogen Negative (Negative) Ur Leukocyte Esterase Negative (Negative) Urine WBC (Auto) 0 (0-5) /hpf Urine RBC (Auto) >30 H (0-4) /hpf U Hyaline Cast (Auto) 1-5 (0-5) /lpf U Epithel Cells (Auto) 0-5 (0-5) /lpf Urine Bacteria (Auto) Negative (Negative) Nasal Screen MRSA (PCR) Positive A (Negative) COVID-19 PCR (Negative) Hepatitis C Ab Screen (Neg) Influenza Type A (PCR) (Neg) Influenza Type B (PCR) (Neg) SARS-CoV-2 RNA (RT-PCR) 08/15/19 08/15/19 08/15/19 Range/Units 18:55 18:55 18:55 WBC (4.8-10.8) K/uL RBC (4.2-5.4) M/uL Hgb (12.0-16.0) g/dL Hct (37-47) % MCV (80-100) fL MCH (25-34) pg MCHC (32-36) g/dL RDW Std Deviation (36.4-46.3) fL RDW Coeff of Bhavin (11.5-14.5) % Plt Count (130-400) K/uL MPV (7.4-10.4) fL Immature Gran % (Auto) % Neut % (Auto) % Lymph % (Auto) % [place] % (Auto) % Eos % (Auto) % Baso % (Auto) % Immature Gran # (Auto) (0.00-0.02) K/uL Neut # (Auto) (1.4-6.5) K/uL Lymph # (Auto) (1.2-3.4) K/uL [place] # (Auto) (0.11-0.59) K/uL Eos # (Auto) (0-0.5) K/uL Baso # (Auto) (0-0.2) K/uL ESR (0-21) mm/hr D-Dimer (0-500) ug/L FEU ABG pH (7.35-7.45) ABG pCO2 (35-46) mmHg ABG pO2 (80-95) mmHg ABG HCO3 (19-24) mmol/L ABG O2 Saturation (90-95) % ABG Base Excess (-9-1.8) mEq/L Richard Test (Pos) Barometric Pressure mm/Hg Oxygen Given Sodium (136-145) mmol/L Potassium (3.5-5.1) mmol/L Chloride (98-107) mmol/L Carbon Dioxide (21-32) mmol/L Anion Gap (3-11) BUN (7-18) mg/dl Creatinine (0.6-1.2) mg/dl Est Cr Clr Drug Dosing ml/min Est GFR ( Amer) Est GFR (Non-Af Amer) BUN/Creatinine Ratio (10-20) Glucose (70-99) mg/dl Calcium (8.5-10.1) mg/dl Magnesium (1.8-2.4) mg/dl Total Bilirubin (0.2-1) mg/dl AST (15-37) U/L ALT (12-78) U/L Alkaline Phosphatase (45-117) U/L Troponin I (0-0.045) ng/ml NT-Pro-B Natriuret Pep (0-900) pg/ml Total Protein (6.4-8.2) gm/dl Albumin (3.4-5.0) gm/dl Globulin (2.5-4.0) gm/dl Albumin/Globulin Ratio (0.9-2) Lipase (73-393) U/L Procalcitonin (0-0.5) ng/ml TSH (0.300-4.500) uIu/ml Urine Color Urine Appearance (Clear) Urine pH (4.5-7.5) Ur Specific [place] (1.000-1.030) Urine Protein (Negative) Urine Glucose (UA) (Negative) Urine Ketones (Negative) Urine Blood (Negative) Urine Nitrite (Negative) Urine Bilirubin (Negative) Urine Urobilinogen (Negative) Ur Leukocyte Esterase (Negative) Urine WBC (Auto) (0-5) /hpf Urine RBC (Auto) (0-4) /hpf U Hyaline Cast (Auto) (0-5) /lpf U Epithel Cells (Auto) (0-5) /lpf Urine Bacteria (Auto) (Negative) Nasal Screen MRSA (PCR) (Negative) COVID-19 PCR NEGATIVE (Negative) Hepatitis C Ab Screen (Neg) Influenza Type A (PCR) Neg for Influ A (Neg) Influenza Type B (PCR) Neg for Influ B (Neg) SARS-CoV-2 RNA (RT-PCR) Cancelled Imaging Data Radiologist's Impression: CT head/brain wo con CT DOSE: 709.48 mGy.cm HISTORY: Mental status change headache, lethargy TECHNIQUE: Multiaxial CT images of the head were performed without the use of intravenous contrast. A dose lowering technique was utilized adhering to the principles of ALARA. Comparison: 05/02/2019 Findings: Moderate mucosal thickening of the sinuses The calvarium and skull base are intact. The ventricles and sulci are within normal limits. There is no mass, hematoma, midline shift, or acute infarct. Impression: No acute intracranial abnormality. Chronic sinus change. ACT 112: Negative or not required by law. The above report was generated using voice recognition software. It may contain grammatical, syntax or spelling errors. Electronically signed by: Ortega Gonsales M.D. 08/15/2019 3:56 PM US venous doppler LE RT CLINICAL HISTORY: edema, sob COMPARISON STUDY: No previous studies for comparison. FINDINGS: Real-time and color flow Doppler imaging were performed. Flow was seen within the femoral, popliteal and calf veins with no intraluminal thrombus demonstrated. The saphenous vein is patent. IMPRESSION: No evidence of deep venous thrombosis. ACT 112: Negative or not required by law. The above report was generated using voice recognition software. It may contain grammatical, syntax or spelling errors. Electronically signed by: Ortega Gonsales M.D. 08/15/2019 5:05 PM XR chest 1V portable CLINICAL HISTORY: sob dyspnea COMPARISON STUDY: 05/02/2019 FINDINGS: Increased cardiac size. Development of pulmonary edema possibly with a superimposed left upper lobe infiltrate. Diaphragms are smooth. IMPRESSION: 1. Cardiomegaly with developing pulmonary edema. 2. Superimposed left upper lobe infiltrate. ACT 112: Negative or not required by law. The above report was generated using voice recognition software. It may contain grammatical, syntax or spelling errors. Electronically signed by: Ortega Gonsales M.D. 08/15/2019 3:40 PM ECG Data Attestation: I personally reviewed and interpreted this ECG as follows: Indication: + weakness Rate (beats per minute): 82 Rhythm: + normal sinus ECG Intervals/blocks: + Left bundle branch block ECG Hoffman: + Normal ECG ST segments: + Nonspecific ST abnormalities Blood Pressure Blood Pressure Findings: Elevated blood pressure Blood Pressure Disposition: further management by hospitalist MDM Narrative Pt with vague presentation here and not able to give detailed history with story of hypoxia and dypsnea. Pt c/o weakness and fatigue. VS stable and no apparent resp distress at rest. Given pt initially from home and no records of a recent hospitalization, labs drawn and sent and cxr performed. CXR revealed pneumonia. Pt initially covered for CAP. Given RLE edema, I also considered PE, so we performed doppler of RLE initially to r/o DVT and discussed possible utility in CT chest with hospitalist. After revealed she had just come home from rehab, I had additional concern for COVID given presentation and discussed this with the hospitalist. She was in agreement with additional antibiotics coverage and covid testing. Pt does have a history of CKD and this was stable on lab testing today. No leukocytosis. Procalcitonin reassuring. CT head originally performed due to pt c/o weakness and headache and limited information. BNP likely elevated from pneumonia and CKD, however pt does have a hx of CHF. After COVID testing added, additional imaging deferred until this result was known. When called back he was updated on her condition and results and provided additional information. verbalized understanding and was in agreement. LBBB on EKG is old. I do not suspect ACS. An order was placed for continuous cardiac monitoring. The monitor shows a rate of 70 with normal sinus_ rhythm. Impression & Plan PNA (pneumonia), Acute hypoxemic respiratory failure, Weakness, Hypokalemia, Congestive heart failure, Anemia, CKD (chronic kidney disease) Discharge Plan Visit Data *Final* Discharge Date/Time: 08/15/19 21:54 Chief Complaint: Lethargic ED Provider: Briseida Hazel Discharge Problem: PNA (pneumonia), Acute hypoxemic respiratory failure, Weakness, Hypokalemia, Congestive heart failure, Anemia, CKD (chronic kidney disease) Patient Disposition: Admitted As Inpatient Discharge Instructions Interventions: ED Discharge Assessment Last Done: 08/15/19 21:54 Discharge Problem: PNA (pneumonia) Qualifiers: Pneumonia type: due to unspecified organism Laterality: left Lung location: upper lobe of lung Qualified Code(s): J18.9 - Pneumonia, unspecified organism Congestive heart failure Qualifiers: Heart failure type: unspecified Heart failure chronicity: acute on chronic Qualified Code(s): I50.9 - Heart failure, unspecified Anemia Qualifiers: Anemia type: unspecified type Qualified Code(s): D64.9 - Anemia, unspecified CKD (chronic kidney disease) Qualifiers: Chronic kidney disease stage: unspecified stage Qualified Code(s): N18.9 - Chronic kidney disease, unspecified
[2019-08-15] MEDS ORDERED: SODIUM CHLORIDE 0.9% 1000ML 1,000 ML IV SCH (15:30)
[2019-08-15 15:31] LABS: Hematocrit (blood only) 28.9 % (37-47); Mean Corpuscular Hemoglobin 29.4 pg (25-34); Mean Corpuscular Hgb Conc 31.1 g/dL (32-36); Mean Corpuscular Volume 94.4 fL (80-100); Mean Platelet Volume 10.8 fL (7.4-10.4); Platelet Count 218 K/uL (130-400); RDW Coefficient of Variation 15.5 % (11.5-14.5); RDW Standard Deviation 52.6 fL (36.4-46.3); Red Blood Count 3.06 M/uL (4.2-5.4); White Blood Count 9.45 K/uL (4.8-10.8)
[2019-08-15 15:39] LABS: Albumin Level 3.3 gm/dl (3.4-5.0); BUN Creatinine Ratio 16.3 (10-20); Calcium 8.2 mg/dl (8.5-10.1); Creatinine Clr Calc Pharmacy 23.2 ml/min; Est GFR (African American) 21.3; Est GFR (Non-African American) 18.4; Magnesium 2.2 mg/dl (1.8-2.4)
--- NOTE | 2019-08-15 15:41 | XRay Report ---
XR chest 1V portable CLINICAL HISTORY: sob dyspnea COMPARISON STUDY: 05/02/2019 FINDINGS: Increased cardiac size. Development of pulmonary edema possibly with a superimposed left up per lobe infiltrate. Diaphragms are smooth. IMPRESSION: 1. Cardiomegaly with developing pulmonary edema. 2. Superimposed left upper lobe infiltrate. ACT 112: Negative or not required by law. The above report was generated using voice recognition software. It may contain grammatical, syntax or spelling errors. Electronically signed by: Ortega Gonsales M.D. 08/15/2019 3:40 PM
[2019-08-15 15:50] LABS: Albumin Globulin Ratio 0.7 (0.9-2); Bilirubin,Total 0.3 mg/dl (0.2-1); Globulin 4.6 gm/dl (2.5-4.0); Thyroid Stimulating Hormone 3.38 uIu/ml (0.300-4.500); Total Protein 7.9 gm/dl (6.4-8.2); Troponin I 0.023 ng/ml (0-0.045)
[2019-08-15 15:56] LABS: Basophils # (auto) 0.02 K/uL (0-0.2); Basophils % (auto) 0.2 %; Eosinophils # (auto) 0.19 K/uL (0-0.5); Immature Granulocytes # (auto) 0.13 K/uL (0.00-0.02); Immature Granulocytes % (auto) 1.4 %; Lymphocytes # (auto) 0.61 K/uL (1.2-3.4); Lymphocytes % (auto) 6.5 %; Monocytes % (auto) 10.6 %; Neutrophils % (auto) 79.3 %
--- NOTE | 2019-08-15 15:58 | CT Scan Report ---
CT head/brain wo con CT DOSE: 709.48 mGy.cm HISTORY: Mental status change headache, lethargy TECHNIQUE: Multiaxial CT images of the head were performed without the use of intravenous contrast. A dose lowering technique was utilized adhering to the principles of ALARA. Comparison: 05/02/2019 Findings: Moderate mucosal thickening of the sinuses The calvarium and skull base are intact. The wero tricles and sulci are within normal limits. There is no mass, hematoma, midline shift, or acute infar ct. Impression: No acute intracranial abnormality. Chronic sinus change. ACT 112: Negative or not required by law. The above report was generated using voice recognition software. It may contain grammatical, syntax or spelling errors. Electronically signed by: Ortega Gonsales M.D. 08/15/2019 3:56 PM
[2019-08-15 16:19] LABS: HCO3 ABG 24 mmol/L (19-24); Oxygen Saturation ABG 95.2 % (90-95); PCO2 ABG 41 mmHg (35-46); PO2 ABG 88 mmHg (80-95); pH ABG 7.39 (7.35-7.45)
[2019-08-15 16:23] LABS: Allen Test POS (Pos)
[2019-08-15 16:24] LABS: D Dimer 2170 ug/L FEU (0-500)
[2019-08-15] MEDS ORDERED: cefTRIAXone SODIUM 2,000 MG/70 ML BAG IV STA (16:28)
[2019-08-15] MEDS ORDERED: AZITHROMYCIN 500 MG in DEXTROSE 5% 250 ML IV ONE (16:49)
--- NOTE | 2019-08-15 17:07 | Ultrasound Report ---
US venous doppler LE RT CLINICAL HISTORY: edema, sob COMPARISON STUDY: No previous studies for comparison. FINDINGS: Real-time and color flow Doppler imaging were performed. Flow was seen within the femoral, popliteal and calf veins with no intraluminal thrombus demonstrated. The saphenous vein is patent. IMPRESSION: No evidence of deep venous thrombosis. ACT 112: Negative or not required by law. The above report was generated using voice recognition software. It may contain grammatical, syntax or spelling errors. Electronically signed by: Ortega Gonsales M.D. 08/15/2019 5:05 PM
[2019-08-15] MEDS ORDERED: FUROSEMIDE 40 MG/4 ML VIAL IV STA (17:37)
[2019-08-15] MEDS ORDERED: VANCOMYCIN CONSULT ACTIVE PRN ×2 (18:04)
[2019-08-15] MEDS ORDERED: VANCOMYCIN HCL 2,250 MG in SODIUM CHLORIDE 0.9% 500 ML IV ONE (18:04)
[2019-08-15 18:25] LABS: Appearance Urine Clear (Clear); Bacteria Urine Automated Negative (Negative); Bilirubin Urine Negative (Negative); Blood Urine 3+ (Negative); Color Urine Yellow; Epithelial Cell Urine Auto 0-5 /lpf (0-5); Glucose Urine UA Negative (Negative); Ketones Urine Negative (Negative); Leukocyte Esterase Urine Negative (Negative); Nitrite Urine Negative (Negative); Protein Urine Trace (Negative); RBC Urine Automated >30 /hpf (0-4); Specific Gravity Urine 1.015 (1.000-1.030); Urobilinogen Urine Negative (Negative); WBC Urine Automated 0 /hpf (0-5)
[2019-08-15 19:39] LABS: Influenza A virus by PCR Neg for Influ A (Neg); Influenza B virus by PCR Neg for Influ B (Neg)
[2019-08-15] MEDS ORDERED: ACETAMINOPHEN 325 MG TAB PO PRN (22:37)
[2019-08-15] MEDS ORDERED: NITROGLYCERIN SL 0.4 MG/TAB TAB SL PRN (22:37)
[2019-08-15] MEDS ORDERED: ALBUT/IPRATROP 3MG/0.5MG NEB 3 ML VIAL INH PRN (22:37)
[2019-08-15] MEDS ORDERED: POLYETHYLENE (MIRALAX) 17 GM PACK PO PRN (22:37)
[2019-08-15] MEDS ORDERED: ONDANSETRON INJ 2 MG/ML 2 ML VIAL IV PRN (22:37)
[2019-08-15] MEDS: buPROPion HCl 75 MG TABLET PO SCH (23:47)
[2019-08-15] MEDS: DOXYCYCLINE HYCLATE 100 MG in DEXTROSE 5% 100 ML IV SCH (23:48)
[2019-08-15] MEDS: HEPARIN SOD 5,000 UNIT/0.5 ML VIAL SQ SCH (23:49)
--- NOTE | 2019-08-16 00:28 | History and Physical Report ---
DATE OF ADMISSION: 08/15/2019 CHIEF COMPLAINT: Weakness. HISTORY OF PRESENT ILLNESS: This is a 73-year-old female with past medical history significant for type 2 diabetes, hypothyroidism, hyperlipidemia, obstructive sleep apnea on CPAP, COPD, chronic diastolic CHF, hypertension steatohepatitis nonalcoholic, morbid obesity, restless legs syndrome, venous dermatitis of both lower extremities, Parkinson disease, iron deficiency anemia, rheumatoid arthritis, depression, generalized anxiety disorder, history of non-ST elevated myocardial infarction, history of multiple falls, mild neurocognitive disorder. The patient is nonambulatory. As per , the patient uses a powered wheelchair, but she is able to stand up. The patient recently, in April, she had a subdural hematoma and she was at [facility] and then she was discharged to [facility]. As per her she was discharged back home on 08/06/2019. Apparently, she was doing fine until yesterday and today morning she was feeling weak to stand up, generally she can stand up, and when the home health nurse checked, her oxygen saturations were low. She has some mild cough today. No fevers. That is the reason she was brought into the ER. She also complained of headache initially, but right now she denies any headaches. Because of the COVID pandemic, COVID testing was done and it was negative. The patient is very hard of hearing. Currently she does not have any headache. Currently no shortness of breath or any pain. Denies any nausea. As per , no diarrhea or constipation. Her appetite was good. No other complaints except for weakness. Currently, she is saturating fine on 3 liters and hemodynamically stable. ALLERGIES: No known drug allergies. PAST MEDICAL HISTORY: As mentioned above. PAST SURGICAL HISTORY: Left total knee arthroplasty, bilateral carpal tunnel surgery, colonoscopy, sinus surgery, lumbosacral shots, ligation of oviducts, bilateral heel surgery, right third toe nerve decompression. MEDICATIONS: The patient is on amlodipine 5 mg p.o. daily, betahistine hydrochloride 16 mg p.o. b.i.d., bupropion 75 mg p.o. q. 12 hours, carbidopa/levodopa 1 tablet p.o. t.i.d., Lasix 40 mg q.p.m. and 60 mg q.a.m., hydralazine 25 mg p.o. t.i.d., DuoNebs q.i.d. p.r.n., levothyroxine 125 mcg p.o. a.m., melatonin 10 mg p.o. at bedtime, oxybutynin chloride 5 mg p.o. a.m., pramipexole 0.5 mg p.o. p.m., pravastatin 40 mg p.o. q.p.m., Lyrica 200 mg p.o. b.i.d., sulfasalazine 1000 mg p.o. b.i.d., terazosin 5 mg at bedtime, venlafaxine 75 mg p.o. a.m. FAMILY HISTORY: Significant for father had diabetes, heart disorder, abdominal aortic aneurysm; mother had hypertension, myasthenia gravis; brother had diabetes, myotonic dystrophy, sister has myotonic dystrophy; sister has diabetes. SOCIAL HISTORY: , lives with her . Former smoker, quit in 1989, smoked quarter pack a day for 50 years. Alcohol never. No drug use. REVIEW OF SYSTEMS: As per HPI. Rest of the review of systems, difficult to get review of systems, the patient is very hard of hearing and seems somewhat lethargic. PHYSICAL EXAMINATION: VITAL SIGNS: Temperature 37, pulse 77, respiratory rate 19, blood pressure 159/92, oxygen 95% on 3 liters. HEENT: No pallor, no icterus. Pupils equal, round, and reactive to light. NECK: No JVD, no neck masses seen. CARDIOVASCULAR: S1, S2 heard, regular rate and rhythm, no murmur, no gallop. RESPIRATORY SYSTEM: Normal AP diameter. No accessory muscle use. Bilateral fine crackles. Has no wheezing. ABDOMEN: Soft, bowel sounds present, nontender. No distention. CENTRAL NERVOUS SYSTEM: Alert and awake. Obeys simple commands. Moves extremities. EXTREMITIES: Bilateral lower extremity edema present. No obvious erythema seen. LABORATORY DATA: WBC 9.4, hemoglobin 9, hematocrit 28.9, platelets 218. ESR 68. D-dimer 2170. ABGs, pH of 7.3, pCO2 of 41, pO2 of 88, bicarbonate 24, oxygen 95%. Sodium 142, potassium 4, chloride 110, bicarbonate 24, BUN 41, creatinine 2.5, serum glucose 120, calcium 8.2, magnesium 2.2, total bilirubin 0.3, AST 13, ALT 8, alkaline phosphatase 118. Troponin I of 0.02. BNP 7870. Lipase 48. Procalcitonin 0.1. TSH 3.3. Urinalysis, +3 blood. MRSA screen was positive. COVID-19 PCR negative. Hepatitis C screen negative. Influenza A and B negative. IMAGING DATA: Chest x-ray shows cardiomegaly with developing pulmonary edema, superimposed left upper lobe infiltrate. CT of the head, no acute intracranial abnormality, chronic sinus change. Venous Dopplers of left lower extremity, no evidence of deep venous thrombosis. EKG: Undetermined rhythm at a rate of 81, left bundle branch block. ASSESSMENT AND PLAN: This is a 73-year-old female who presents with lethargy and weakness and also hypoxia. 1. Hypoxia, most likely [id number] diastolic congestive heart failure, possibly superimposed pneumonia. Received IV Lasix 40 in the ER. Will continue with IV 40 Lasix b.i.d. Daily weights, I's and O's, and consult cardiology in a.m. 2. Possible pneumonia. Has some cough. On chest x-ray, possible left upper lobe infiltrate. No leukocytosis, afebrile. COVID test is negative. The patient was recently in [facility] for rehabilitation, discharged on 08/06/2019. Empirically received vancomycin and Rocephin in the ER. Will continue with Rocephin and doxycycline. MRSA screen is positive. Monitor for response. 3. Acute kidney injury on chronic kidney disease stage IV. Baseline creatinine around 2.2 to 2.3, presently with creatinine of 2.5, most likely could be cardiorenal. Getting Lasix. We will follow the labs in the a.m. 4. Diabetes, seems to be not on medications. We will follow the HbA1c level, follow the blood sugars. Insulin sliding scale. 5. Obstructive sleep apnea, on CPAP at bedtime. 6. Chronic obstructive pulmonary disease, continue home nebs p.r.n. 7. Hypertension, on amlodipine, hydralazine, terazosin and diuretics. Question of being on metoprolol and spironolactone. We will follow the blood pressure. 8. Depression, generalized anxiety disorder, on venlafaxine and bupropion. 9. Hypothyroidism, on Synthroid. 10. Hyperlipidemia, on statin. 11. Restless legs syndrome, on Requip. 12. History of Parkinson's, on carbidopa/levodopa. 13. Deep venous thrombosis prophylaxis, heparin subQ. 14. Disposition: Admit to tele floor. The patient is nonambulatory status, but able to stand; today she was not able to stand. We will do PT and OT prior to discharge. Social service to help with discharge planning. Code status level 1 full code as per my discussion with her . Please verify the home medications whether the patient is still on metformin, metoprolol, potassium supplements, and spironolactone. MTDD
[2019-08-16 06:06] LABS: Basophils # (auto) 0.02 K/uL (0-0.2); Basophils % (auto) 0.3 %; Eosinophils % (auto) 4.6 %; Hematocrit (blood only) 26.1 % (37-47); Hemoglobin 8.1 g/dL (12.0-16.0); Immature Granulocytes # (auto) 0.08 K/uL (0.00-0.02); Immature Granulocytes % (auto) 1.2 %; Lymphocytes % (auto) 10.7 %; Mean Corpuscular Hemoglobin 29.2 pg (25-34); Mean Corpuscular Volume 94.2 fL (80-100); Mean Platelet Volume 11.1 fL (7.4-10.4); Monocytes % (auto) 12.3 %; Neutrophils # (auto) 4.63 K/uL (1.4-6.5); Neutrophils % (auto) 70.9 %; Platelet Count 218 K/uL (130-400); RDW Coefficient of Variation 15.2 % (11.5-14.5); RDW Standard Deviation 52.9 fL (36.4-46.3); Red Blood Count 2.77 M/uL (4.2-5.4); White Blood Count 6.53 K/uL (4.8-10.8)
[2019-08-16] MEDS: LEVOTHYROXINE SODIUM 125 MCG TABLET PO SCH (06:17)
[2019-08-16] MEDS: HEPARIN SOD 5,000 UNIT/0.5 ML VIAL SQ SCH ×3 (06:18→20:24)
[2019-08-16 06:32] LABS: BUN Creatinine Ratio 15.9 (10-20); Calcium 7.9 mg/dl (8.5-10.1); Creatinine Clr Calc Pharmacy 25.1 ml/min; Est GFR (African American) 23.8; Est GFR (Non-African American) 20.5; Magnesium 1.9 mg/dl (1.8-2.4); Potassium 3.6 mmol/L (3.5-5.1)
[2019-08-16 07:17] LABS: Estimated Average Glucose 77 mg/dl; Hemoglobin A1C 4.3 % (4.5-5.6)
--- NOTE | 2019-08-16 08:04 | Hospitalist Progress Note ---
Date of Service August 16, 2019 Assessment & Plan (1) PNA (pneumonia): ASSESSMENT AND PLAN: This is a 73-year-old female who presents with lethargy and weakness and also hypoxia. 1. Hypoxia, most likely fwjkj-[id number] diastolic congestive heart failure, possibly superimposed pneumonia. Received IV Lasix 40 in the ER. Will continue with IV 40 Lasix b.i.d. Daily weights, I's and O's, and Cardiology to see. 2. Pneumonia. Has some cough. On chest x-ray, left upper lobe infiltrate. No leukocytosis, afebrile. COVID test is negative. The patient was recently in [facility] for rehabilitation, discharged on 08/06/2019. Empirically received vancomycin and Rocephin in the ER. Will continue with Rocephin and doxycycline. MRSA screen is positive. Monitor for response. 3. Acute kidney injury on chronic kidney disease stage IV. Baseline creatinine around 2.2 to 2.3, follow the labs. 4. Diabetes, seems to be not on medications. Insulin sliding scale. 5. Obstructive sleep apnea, on CPAP at bedtime. 6. Chronic obstructive pulmonary disease, continue home nebs p.r.n. 7. Hypertension, on amlodipine, hydralazine, terazosin and diuretics. Question of being on metoprolol and spironolactone. Monitor blood pressure. 8. Depression, generalized anxiety disorder, on venlafaxine and bupropion. 9. Hypothyroidism, on Synthroid. 10. Hyperlipidemia, on statin. 11. Restless legs syndrome, on Requip. 12. History of Parkinson's, on carbidopa/levodopa. 13. Deep venous thrombosis prophylaxis, heparin subQ. Disposition: Tele floor. The patient is nonambulatory status, but able to stand; PT and OT prior to discharge. Social service to help with discharge planning. Code status level 1 full code as per discussion with her . Labs Checked ROS-On BIPAP, Offered no history Physical Exam Gen-Somnolent, NAD, febrile, On BIPAP, Obese Head-NCAT, EOMI, PERRLA, Anicteric Sclera, No Posterior Pharyngeal Erythema Neck-Supple, No JVD, No Thyromegaly, No Masses, No LAD, No Bruits Lungs-Clear to Auscultation Bilaterally, No Rales, No Rhonchi, No Wheezing, No Crepitus Chest-No S4, +S1, +S2, No S3, No Murmurs, No Rubs, No Gallops, No Ectopy Abdomen-Soft, Bowel Sounds Present, Non Tender, Non Distended, No Hepatomegaly, No Splenomegaly, No Palpable Masses, No Rebound, No Rigidity, No Guarding Musculoskeletal-Full Range of Motion Bilaterally, No CVAT Extremities-No Cyanosis, No Clubbing, No Edema Nuero-Cranial Nerves II-XII grossly intact Psych-Somnolent Admission and Anticipated Discharge Date Admission Date: August 15, 2019 Results & Data Results & Data ([facility]) Vital Signs (Past 12 Hours) Vital Signs Temp Pulse Pulse Resp BP BP Pulse Ox 08/16/19 07:14 37.8 C H 84 18 135/54 L 95 08/16/19 04:25 38.1 C H 77 16 131/67 95 08/16/19 00:12 37.4 C 74 20 154/73 H 96 08/15/19 23:06 73 19 92 08/15/19 22:37 36.6 C 76 22 158/76 H 95 08/15/19 21:31 77 19 159/92 H 95 08/15/19 21:01 77 20 152/86 H 96 08/15/19 20:31 81 20 152/74 H 98 08/15/19 20:01 81 20 161/86 H 96 08/15/19 20:00 80 18 96 Pulse Ox 08/16/19 07:14 08/16/19 04:25 08/16/19 00:12 08/15/19 23:06 08/15/19 22:37 93 08/15/19 21:31 08/15/19 21:01 08/15/19 20:31 08/15/19 20:01 08/15/19 20:00 (1) PNA (pneumonia) Laterality: left Lung location: upper lobe of lung Pneumonia type: due to unspecified organism Qualified Code(s): J18.9 - Pneumonia, unspecified organism
[2019-08-16] MEDS ORDERED: FUROSEMIDE 40 MG/4 ML VIAL IV SCH (09:00)
--- NOTE | 2019-08-16 09:38 | Cardiology Consultation ---
Date of Consultation August 16, 2019 Assessment & Plan (1) Acute hypoxemic respiratory failure: Very complex 73-year-old female with multiple underlying medical issues as outlined with recent acute decline that appears multifactorial with component of pneumonia and decompensated diastolic heart failure. Patient begun on diuretics and antihypertensives have been continued. No acute changes on EKG with chronic left bundle branch block present. Exam reflects aortic and mitral systolic murmurs. Chronic renal disease and anemia noted Agree with management as already begun with respiratory support. Continue IV diuretics while following renal function closely Echocardiogram ordered to assess systolic function and valvular disease Treat underlying pneumonia We will follow in hospital as clinical course progresses (2) Acute on chronic diastolic CHF (congestive heart failure): (3) PNA (pneumonia): (4) LBBB (left bundle branch block): (5) Hypertension: (6) Anemia: (7) Acute renal failure superimposed on stage 3 chronic kidney disease: History of Present Illness Reason for Consultation: Hypoxia, decompensated diastolic heart failure Requesting Physician: Dr. Stoll Attending Physician: Geoffrey Washington, History of Present Illness Patient is a very complex 73-year-old female with past history which includes 1. Diastolic dysfunction with preserved LV systolic function with longstanding hypertension/hypertensive disease 2. Obstructive sleep apnea with a history of noncompliance to CPAP 3. High likelihood of obesity hypoventilation 4. Chronic left bundle branch block 5. Obesity 6. Stage 3 chronic kidney disease. 7. Diabetes 8. Parkinson's disease 9. History of multiple falls with subsequent subdural hematoma April 2019 Patient stated obtained from review of records. Patient currently on BiPAP and unable to add additional information to examination and history. Per records and admitting data patient recently released from extended care facility to home care after extended stay following subdural hematoma in April 2019. Patient usual status is wheelchair-bound but able to stand. Per records yesterday and the day prior been complaining of increasing weakness and fatigue and yesterday with increasing dyspnea. Home oxygen saturation monitoring demonstrated hypoxia and patient was brought to the emergency room for further evaluation. Chest x- ray revealed pulmonary edema with superimposed left upper lobe infiltrate. Patient has received IV furosemide with initiation of diuresis. Low-grade elevated temperature this morning Currently on CPAP/BiPAP Allergies Allergy/AdvReac Type Severity Reaction Status Date / Time No Known Allergies Allergy Verified 08/15/19 15:34 Home Medications Home Medications Medication Instructions Recorded Confirmed Type Betahistine Hydrochloride 16 mg PO BID 11/18/17 08/15/19 History pravastatin [Pravachol] 40 mg PO QPM 11/18/17 08/15/19 History sulfasalazine 1,000 mg PO BID 11/18/17 08/15/19 History amlodipine 5 mg PO QAM 08/21/18 08/15/19 History carbidopa-levodopa 1 tab PO TIDM 08/21/18 08/15/19 History cyanocobalamin (vitamin B-12) 1,000 mcg PO QAM 08/21/18 08/15/19 History [Vitamin B-12] levothyroxine 125 mcg PO QAM 08/21/18 08/15/19 History melatonin 10 mg PO HS 08/21/18 08/15/19 History oxybutynin chloride 5 mg PO QAM 08/21/18 08/15/19 History pregabalin [Lyrica] 200 mg PO BID #60 cap 08/28/18 08/15/19 Rx hydralazine 25 mg PO TID 11/18/18 08/15/19 History metoprolol tartrate 25 mg PO BID 11/18/18 08/15/19 History furosemide 40 mg PO QPM 04/20/19 08/15/19 History ipratropium-albuterol 3 ml INHALATION QID PRN 04/20/19 08/15/19 History terazosin 5 mg PO HS 04/20/19 08/15/19 History bupropion HCl 75 mg PO Q12H 08/15/19 08/15/19 History furosemide 60 mg PO QAM 08/15/19 08/15/19 History potassium chloride 40 meq PO QAM 08/15/19 08/15/19 History pramipexole 0.25 mg PO QPM 08/15/19 08/15/19 History venlafaxine 75 mg PO QAM 08/15/19 08/15/19 History Patient History Medical History CKD (chronic kidney disease), stage III Depression Diabetes mellitus, type II DM type 2 (diabetes mellitus, type 2) Dyslipidemia Generalized anxiety disorder HTN (hypertension) Hypothyroidism Meniere's disease RENÉ on CPAP Restless leg syndrome Rheumatoid arthritis Subdural hematoma (Inactive) Surgical History H/O sinus surgery History of carpal tunnel surgery History of tubal ligation Hx of total knee arthroplasty "Left, Dr. 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 Beliefs That Will Affect Care: None marital status: Current Living Situation: Spouse Other Information That Helps Us Care for You: No Feels Safe at Home: Yes Safety Concerns: Feels Safe At This Time Smoking Status: Never smoker Tobacco Type: cigarettes ; Cigarettes Per Day: 0.25ppd ; Do You Dip or Chew Tobacco: No ; Smoking End Date: 10 years ago ; Second Hand Exposure: No ; Tobacco Cessation Education Requested by Patient: No Hx Alcohol Use: No Hx Substance Use: No Review of Systems Review of Systems: Unobtainable due to cognitive status Physical Exam Constitutional: + ill appearing and + obese Eyes: PERRL, conjunctivae normal, anicteric sclerae ENMT: external ear and nose normal, oropharynx normal Neck: + thick neck Respiratory: Auscultation: + rales and + rhonchi Cardiovascular: Rate/Rhythm: regular rate and regular rhythm Heart Sounds: normal S1, normal S2 and + murmur (Grade 2/6 systolic ejection murmur as well as a grade 2/6 holosystolic murmur at the apex) Palpation: S3 nonpalpable Vessels: no carotid bruit and no femoral bruit Extremities: + edema (1+) Gastrointestinal (Abdomen): normal bowel sounds, soft, nontender, no hepatosplenomegaly Moderate-sized panniculus Musculoskeletal: Extremities: no cyanosis and no clubbing Neurologic: moves all extremities Speech / Cognition: + abnormal cognition Results & Data ([facility]) Vital Signs (Past 12 Hours) Vital Signs Temp Pulse Pulse Resp BP Pulse Ox Pulse Ox 08/16/19 07:14 37.8 C H 84 18 135/54 L 95 08/16/19 04:25 38.1 C H 77 16 131/67 95 08/16/19 00:12 37.4 C 74 20 154/73 H 96 05/31/20 23:06 73 19 92 08/15/19 22:37 36.6 C 76 22 158/76 H 95 93 Laboratory Results Laboratory Results - last 24 hr 08/15/19 08/15/19 08/15/19 15:08 15:08 15:08 WBC 9.45 RBC 3.06 L Hgb 9.0 L Hct 28.9 L MCV 94.4 MCH 29.4 MCHC 31.1 L RDW Std Deviation 52.6 H RDW Coeff of Bhavin 15.5 H Plt Count 218 MPV 10.8 H Immature Gran % (Auto) 1.4 Neut % (Auto) 79.3 Lymph % (Auto) 6.5 [place] % (Auto) 10.6 Eos % (Auto) 2.0 Baso % (Auto) 0.2 Immature Gran # (Auto) 0.13 H Neut # (Auto) 7.50 H Lymph # (Auto) 0.61 L [place] # (Auto) 1.00 H Eos # (Auto) 0.19 Baso # (Auto) 0.02 ESR 68 H D-Dimer ABG pH ABG pCO2 ABG pO2 ABG HCO3 ABG O2 Saturation ABG Base Excess Richard Test Barometric Pressure Oxygen Given Sodium 142 Potassium 4.0 Chloride 110 H Carbon Dioxide 24 Anion Gap 8.0 BUN 41 H Creatinine 2.52 H Est Cr Clr Drug Dosing 23.2 Est GFR ( Amer) 21.3 Est GFR (Non-Af Amer) 18.4 BUN/Creatinine Ratio 16.3 Glucose 120 H POC Glucose Estimat Average Glucose Hemoglobin A1c Calcium 8.2 L Magnesium 2.2 Total Bilirubin 0.3 AST 13 L ALT 8 L Alkaline Phosphatase 118 H Troponin I 0.023 NT-Pro-B Natriuret Pep 7870 H Total Protein 7.9 Albumin 3.3 L Globulin 4.6 H Albumin/Globulin Ratio 0.7 L Lipase 48 L Procalcitonin TSH 3.380 Urine Color Urine Appearance Urine pH Ur Specific [place] Urine Protein Urine Glucose (UA) Urine Ketones Urine Blood Urine Nitrite Urine Bilirubin Urine Urobilinogen Ur Leukocyte Esterase Urine WBC (Auto) Urine RBC (Auto) U Hyaline Cast (Auto) U Epithel Cells (Auto) Urine Bacteria (Auto) Nasal Screen MRSA (PCR) COVID-19 PCR Hepatitis C Ab Screen Influenza Type A (PCR) Influenza Type B (PCR) SARS-CoV-2 RNA (RT-PCR) 08/15/19 08/15/19 08/15/19 15:08 15:08 15:08 WBC RBC Hgb Hct MCV MCH MCHC RDW Std Deviation RDW Coeff of Bhavin Plt Count MPV Immature Gran % (Auto) Neut % (Auto) Lymph % (Auto) [place] % (Auto) Eos % (Auto) Baso % (Auto) Immature Gran # (Auto) Neut # (Auto) Lymph # (Auto) [place] # (Auto) Eos # (Auto) Baso # (Auto) ESR D-Dimer 2170 H* ABG pH ABG pCO2 ABG pO2 ABG HCO3 ABG O2 Saturation ABG Base Excess Richard Test Barometric Pressure Oxygen Given Sodium Potassium Chloride Carbon Dioxide Anion Gap BUN Creatinine Est Cr Clr Drug Dosing Est GFR ( Amer) Est GFR (Non-Af Amer) BUN/Creatinine Ratio Glucose POC Glucose Estimat Average Glucose Hemoglobin A1c Calcium Magnesium Total Bilirubin AST ALT Alkaline Phosphatase Troponin I NT-Pro-B Natriuret Pep Total Protein Albumin Globulin Albumin/Globulin Ratio Lipase Procalcitonin 0.12 TSH Urine Color Urine Appearance Urine pH Ur Specific [place] Urine Protein Urine Glucose (UA) Urine Ketones Urine Blood Urine Nitrite Urine Bilirubin Urine Urobilinogen Ur Leukocyte Esterase Urine WBC (Auto) Urine RBC (Auto) U Hyaline Cast (Auto) U Epithel Cells (Auto) Urine Bacteria (Auto) Nasal Screen MRSA (PCR) COVID-19 PCR Hepatitis C Ab Screen Neg Influenza Type A (PCR) Influenza Type B (PCR) SARS-CoV-2 RNA (RT-PCR) 08/15/19 08/15/19 08/15/19 15:58 18:00 18:55 WBC RBC Hgb Hct MCV MCH MCHC RDW Std Deviation RDW Coeff of Bhavin Plt Count MPV Immature Gran % (Auto) Neut % (Auto) Lymph % (Auto) [place] % (Auto) Eos % (Auto) Baso % (Auto) Immature Gran # (Auto) Neut # (Auto) Lymph # (Auto) [place] # (Auto) Eos # (Auto) Baso # (Auto) ESR D-Dimer ABG pH 7.39 ABG pCO2 41 ABG pO2 88 ABG HCO3 24 ABG O2 Saturation 95.2 H ABG Base Excess -1.0 Richard Test POS Barometric Pressure 735.2 Oxygen Given 4L O2 Sodium Potassium Chloride Carbon Dioxide Anion Gap BUN Creatinine Est Cr Clr Drug Dosing Est GFR ( Amer) Est GFR (Non-Af Amer) BUN/Creatinine Ratio Glucose POC Glucose Estimat Average Glucose Hemoglobin A1c Calcium Magnesium Total Bilirubin AST ALT Alkaline Phosphatase Troponin I NT-Pro-B Natriuret Pep Total Protein Albumin Globulin Albumin/Globulin Ratio Lipase Procalcitonin TSH Urine Color Yellow Urine Appearance Clear Urine pH 5.0 Ur Specific [place] 1.015 Urine Protein Trace H Urine Glucose (UA) Negative Urine Ketones Negative Urine Blood 3+ H Urine Nitrite Negative Urine Bilirubin Negative Urine Urobilinogen Negative Ur Leukocyte Esterase Negative Urine WBC (Auto) 0 Urine RBC (Auto) >30 H U Hyaline Cast (Auto) 1-5 U Epithel Cells (Auto) 0-5 Urine Bacteria (Auto) Negative Nasal Screen MRSA (PCR) Positive A COVID-19 PCR Hepatitis C Ab Screen Influenza Type A (PCR) Influenza Type B (PCR) SARS-CoV-2 RNA (RT-PCR) 08/15/19 08/15/19 08/15/19 18:55 18:55 18:55 WBC RBC Hgb Hct MCV MCH MCHC RDW Std Deviation RDW Coeff of Bhavin Plt Count MPV Immature Gran % (Auto) Neut % (Auto) Lymph % (Auto) [place] % (Auto) Eos % (Auto) Baso % (Auto) Immature Gran # (Auto) Neut # (Auto) Lymph # (Auto) [place] # (Auto) Eos # (Auto) Baso # (Auto) ESR D-Dimer ABG pH ABG pCO2 ABG pO2 ABG HCO3 ABG O2 Saturation ABG Base Excess Richard Test Barometric Pressure Oxygen Given Sodium Potassium Chloride Carbon Dioxide Anion Gap BUN Creatinine Est Cr Clr Drug Dosing Est GFR ( Amer) Est GFR (Non-Af Amer) BUN/Creatinine Ratio Glucose POC Glucose Estimat Average Glucose Hemoglobin A1c Calcium Magnesium Total Bilirubin AST ALT Alkaline Phosphatase Troponin I NT-Pro-B Natriuret Pep Total Protein Albumin Globulin Albumin/Globulin Ratio Lipase Procalcitonin TSH Urine Color Urine Appearance Urine pH Ur Specific [place] Urine Protein Urine Glucose (UA) Urine Ketones Urine Blood Urine Nitrite Urine Bilirubin Urine Urobilinogen Ur Leukocyte Esterase Urine WBC (Auto) Urine RBC (Auto) U Hyaline Cast (Auto) U Epithel Cells (Auto) Urine Bacteria (Auto) Nasal Screen MRSA (PCR) COVID-19 PCR NEGATIVE Hepatitis C Ab Screen Influenza Type A (PCR) Neg for Influ A Influenza Type B (PCR) Neg for Influ B SARS-CoV-2 RNA (RT-PCR) Cancelled 08/16/19 08/16/19 08/16/19 05:25 05:25 05:25 WBC 6.53 RBC 2.77 L Hgb 8.1 L Hct 26.1 L MCV 94.2 MCH 29.2 MCHC 31.0 L RDW Std Deviation 52.9 H RDW Coeff of Bhavin 15.2 H Plt Count 218 MPV 11.1 H Immature Gran % (Auto) 1.2 Neut % (Auto) 70.9 Lymph % (Auto) 10.7 [place] % (Auto) 12.3 Eos % (Auto) 4.6 Baso % (Auto) 0.3 Immature Gran # (Auto) 0.08 H Neut # (Auto) 4.63 Lymph # (Auto) 0.70 L [place] # (Auto) 0.80 H Eos # (Auto) 0.30 Baso # (Auto) 0.02 ESR D-Dimer ABG pH ABG pCO2 ABG pO2 ABG HCO3 ABG O2 Saturation ABG Base Excess Richard Test Barometric Pressure Oxygen Given Sodium 144 Potassium 3.6 Chloride 113 H Carbon Dioxide 25 Anion Gap 6.0 BUN 37 H Creatinine 2.30 H Est Cr Clr Drug Dosing 25.1 Est GFR ( Amer) 23.8 Est GFR (Non-Af Amer) 20.5 BUN/Creatinine Ratio 15.9 Glucose 93 POC Glucose Estimat Average Glucose 77 Hemoglobin A1c 4.3 L Calcium 7.9 L Magnesium 1.9 Total Bilirubin AST ALT Alkaline Phosphatase Troponin I NT-Pro-B Natriuret Pep Total Protein Albumin Globulin Albumin/Globulin Ratio Lipase Procalcitonin TSH Urine Color Urine Appearance Urine pH Ur Specific [place] Urine Protein Urine Glucose (UA) Urine Ketones Urine Blood Urine Nitrite Urine Bilirubin Urine Urobilinogen Ur Leukocyte Esterase Urine WBC (Auto) Urine RBC (Auto) U Hyaline Cast (Auto) U Epithel Cells (Auto) Urine Bacteria (Auto) Nasal Screen MRSA (PCR) COVID-19 PCR Hepatitis C Ab Screen Influenza Type A (PCR) Influenza Type B (PCR) SARS-CoV-2 RNA (RT-PCR) 08/16/19 07:24 WBC RBC Hgb Hct MCV MCH MCHC RDW Std Deviation RDW Coeff of Bhavin Plt Count MPV Immature Gran % (Auto) Neut % (Auto) Lymph % (Auto) [place] % (Auto) Eos % (Auto) Baso % (Auto) Immature Gran # (Auto) Neut # (Auto) Lymph # (Auto) [place] # (Auto) Eos # (Auto) Baso # (Auto) ESR D-Dimer ABG pH ABG pCO2 ABG pO2 ABG HCO3 ABG O2 Saturation ABG Base Excess Richard Test Barometric Pressure Oxygen Given Sodium Potassium Chloride Carbon Dioxide Anion Gap BUN Creatinine Est Cr Clr Drug Dosing Est GFR ( Amer) Est GFR (Non-Af Amer) BUN/Creatinine Ratio Glucose POC Glucose 103 H Estimat Average Glucose Hemoglobin A1c Calcium Magnesium Total Bilirubin AST ALT Alkaline Phosphatase Troponin I NT-Pro-B Natriuret Pep Total Protein Albumin Globulin Albumin/Globulin Ratio Lipase Procalcitonin TSH Urine Color Urine Appearance Urine pH Ur Specific [place] Urine Protein Urine Glucose (UA) Urine Ketones Urine Blood Urine Nitrite Urine Bilirubin Urine Urobilinogen Ur Leukocyte Esterase Urine WBC (Auto) Urine RBC (Auto) U Hyaline Cast (Auto) U Epithel Cells (Auto) Urine Bacteria (Auto) Nasal Screen MRSA (PCR) COVID-19 PCR Hepatitis C Ab Screen Influenza Type A (PCR) Influenza Type B (PCR) SARS-CoV-2 RNA (RT-PCR) (1) Hypertension Hypertension type: essential hypertension Qualified Code(s): I10 - Essential (primary) hypertension (2) PNA (pneumonia) Laterality: left Lung location: upper lobe of lung Pneumonia type: due to unspecified organism Qualified Code(s): J18.9 - Pneumonia, unspecified organism
[2019-08-16] MEDS: INSULIN ASPART 100 UNITS/ML 3 ML PEN SC SCH ×4 (09:40→20:38)
[2019-08-16] MEDS: PREGABALIN 100 MG CAP PO SCH ×2 (09:44→20:25)
[2019-08-16] MEDS: FUROSEMIDE 40 MG in SYRINGE 0 ML IV SCH ×2 (10:19→17:29)
[2019-08-16] MEDS: buPROPion HCl 75 MG TABLET PO SCH ×2 (10:29→20:24)
[2019-08-16] MEDS: AMLODIPINE BESYLATE 5 MG TAB PO SCH (10:29)
[2019-08-16] MEDS: VENLAFAXINE HCL XR 75 MG CAPXR PO SCH (10:29)
[2019-08-16] MEDS: CARBIDOPA/LEVODOPA 25/100MG TAB PO SCH ×3 (10:29→17:26)
[2019-08-16] MEDS: OXYBUTYNIN CHLORIDE XL 5 MG TABCR PO SCH (10:29)
[2019-08-16] MEDS: CYANOCOBALAMIN 500 MCG TABLET (VITAMIN B-12) PO SCH (10:29)
[2019-08-16] MEDS: DOXYCYCLINE HYCLATE 100 MG in DEXTROSE 5% 100 ML IV SCH (11:33)
--- NOTE | 2019-08-16 12:23 | Ultrasound Report ---
LEFT LOWER EXTREMITY VENOUS DOPPLER HISTORY: Left leg edema. dvt? edema. COMPARISON STUDY: None. FINDINGS: There is normal compressibility, flow, and augmentation within the left lower extremity thao p venous system. IMPRESSION: No DVT within the left lower extremity. ACT 112: Negative or not required by law. Electronically signed by: Carlos Jenkins M.D. 08/16/2019 12:22 PM
--- NOTE | 2019-08-16 16:14 | Electrocardiogram Report ---
Test Reason : Blood Pressure : / mmHG Vent. Rate : 081 BPM Atrial Rate : 079 BPM P-R Int : 174 ms QRS Dur : 154 ms QT Int : 444 ms P-R-T Axes : 051 076 -02 degrees QTc Int : 515 ms Poor data quality, interpretation may be adversely affected Sinus rhythm Left bundle branch block Abnormal ECG When compared with ECG of 20-APR-2019 15:15, No significant change Confirmed by Jerod Ngo ([id number]) on 08/16/2019 4:14:10 PM Referred By: REFERRED SELF Confirmed By:Jerod Ngo
[2019-08-16] MEDS: cefTRIAXone SODIUM 2,000 MG in DEXTROSE 5% 50 ML IV SCH (17:25)
[2019-08-16] MEDS: TERAZOSIN HCL 5 MG CAP PO SCH (20:24)
[2019-08-16] MEDS: PRAMIPEXOLE DIHYDROCHLO 0.25 MG TAB PO SCH (20:24)
[2019-08-16] MEDS: PRAVASTATIN SOD 40 MG TAB PO SCH (20:24)
[2019-08-16] MEDS: MELATONIN 3 MG TAB PO SCH (20:25)
[2019-08-16] MEDS: BETAHISTINE PO SCH (20:25)
[2019-08-17] MEDS: DOXYCYCLINE HYCLATE 100 MG in DEXTROSE 5% 100 ML IV SCH ×2 (00:11→13:07)
[2019-08-17] MEDS: LEVOTHYROXINE SODIUM 125 MCG TABLET PO SCH (05:43)
[2019-08-17] MEDS: HEPARIN SOD 5,000 UNIT/0.5 ML VIAL SQ SCH ×3 (05:43→20:42)
[2019-08-17 06:36] LABS: Basophils # (auto) 0.02 K/uL (0-0.2); Basophils % (auto) 0.4 %; Eosinophils # (auto) 0.52 K/uL (0-0.5); Eosinophils % (auto) 10.4 %; Hematocrit (blood only) 28.8 % (37-47); Hemoglobin 9.2 g/dL (12.0-16.0); Immature Granulocytes # (auto) 0.08 K/uL (0.00-0.02); Immature Granulocytes % (auto) 1.6 %; Lymphocytes # (auto) 1.29 K/uL (1.2-3.4); Lymphocytes % (auto) 25.7 %; Mean Corpuscular Hemoglobin 30.3 pg (25-34); Mean Corpuscular Hgb Conc 31.9 g/dL (32-36); Mean Corpuscular Volume 94.7 fL (80-100); Monocytes # (auto) 0.73 K/uL (0.11-0.59); Monocytes % (auto) 14.6 %; Neutrophils # (auto) 2.37 K/uL (1.4-6.5); Neutrophils % (auto) 47.3 %; Platelet Count 223 K/uL (130-400); RDW Coefficient of Variation 15.2 % (11.5-14.5); RDW Standard Deviation 52.3 fL (36.4-46.3); Red Blood Count 3.04 M/uL (4.2-5.4); White Blood Count 5.01 K/uL (4.8-10.8)
[2019-08-17 07:05] LABS: Albumin Level 2.9 gm/dl (3.4-5.0); BUN Creatinine Ratio 16.6 (10-20); Calcium 8.4 mg/dl (8.5-10.1); Creatinine Clr Calc Pharmacy 23.6 ml/min; Est GFR (African American) 22.2; Est GFR (Non-African American) 19.1; Potassium 3.3 mmol/L (3.5-5.1)
[2019-08-17 07:08] LABS: Albumin Globulin Ratio 0.7 (0.9-2); Bilirubin,Total 0.3 mg/dl (0.2-1); Globulin 4.1 gm/dl (2.5-4.0)
[2019-08-17] MEDS: INSULIN ASPART 100 UNITS/ML 3 ML PEN SC SCH ×4 (07:45→20:42)
[2019-08-17] MEDS: PREGABALIN 100 MG CAP PO SCH ×2 (08:42→20:49)
[2019-08-17] MEDS: AMLODIPINE BESYLATE 5 MG TAB PO SCH (08:43)
[2019-08-17] MEDS: buPROPion HCl 75 MG TABLET PO SCH ×2 (08:43→20:40)
[2019-08-17] MEDS: CYANOCOBALAMIN 500 MCG TABLET (VITAMIN B-12) PO SCH (08:43)
[2019-08-17] MEDS: VENLAFAXINE HCL XR 75 MG CAPXR PO SCH (08:44)
[2019-08-17] MEDS: CARBIDOPA/LEVODOPA 25/100MG TAB PO SCH ×3 (08:44→18:14)
[2019-08-17] MEDS: BETAHISTINE PO SCH ×2 (08:45→20:41)
[2019-08-17] MEDS: OXYBUTYNIN CHLORIDE XL 5 MG TABCR PO SCH (08:45)
[2019-08-17] MEDS ORDERED: FUROSEMIDE 20 MG TAB PO ONE (09:30)
[2019-08-17] MEDS ORDERED: POTASSIUM CHLORIDE 20 MEQ TABCR PO ONE (09:31)
--- NOTE | 2019-08-17 09:40 | Cardiology Progress Note ---
Date of Service August 17, 2019 Assessment & Plan (1) Acute hypoxemic respiratory failure: Very complex 73-year-old female with multiple underlying medical issues as outlined with recent acute decline that appears multifactorial with component of pneumonia and decompensated diastolic heart failure. Patient begun on diuretics and antihypertensives have been continued. No acute changes on EKG with chronic left bundle branch block present. Exam reflects aortic and mitral systolic murmurs. Chronic renal disease and anemia noted Patient clinically improved after 3 L diuresis, now alert and no respiratory distress off BiPAP. No arrhythmias on telemetry other than occasional ventricular ectopic beats Plan: Change furosemide to oral beginning at 60 mg p.o. twice daily although this may be insufficient. Will need to follow weights and I's and O's closely Supplement potassium today Portable chest x-ray this morning to reassess infiltrate and edema Continue nocturnal CPAP supplementation Add Isordil 10 mg 3 times daily to hydralazine for afterload reduction. May consider adding CHF indicated beta-lucho, very low dose this admission (2) Acute on chronic diastolic CHF (congestive heart failure): (3) PNA (pneumonia): (4) LBBB (left bundle branch block): (5) Hypertension: (6) Anemia: (7) Acute renal failure superimposed on stage 3 chronic kidney disease: Subjective Patient was seen and examined, chart, medications, telemetry reviewed. Patient today alert sitting up in bed and conversing. Eating breakfast without difficulty. No respiratory distress. Patient with approximately 3 L diuresis No chest pains no tachypalpitations no arrhythmias on telemetry Patient denies current cough, afebrile overnight Physical Exam Constitutional: WD/WN, vitals as above + obese Eyes: PERRL, conjunctivae normal, anicteric sclerae ENMT: external ear and nose normal, oropharynx normal Neck: + thick neck Respiratory: Diminished breath sounds but appear clear Cardiovascular: Rate/Rhythm: regular rate and regular rhythm Heart Sounds: normal S1, normal S2 and + murmur (Grade 2/6 systolic ejection murmur, no audible apical murmur today) Palpation: S3 nonpalpable Vessels: no JVD and no carotid bruit Extremities: no edema Gastrointestinal (Abdomen): normal bowel sounds, soft, nontender, no hepatosplenomegaly Musculoskeletal: Extremities: no cyanosis and no clubbing Neurologic: moves all extremities Speech / Cognition: + abnormal cognition Results & Data Vital Signs (Past 12 Hours) Vital Signs Temp Pulse Pulse Resp BP Pulse Ox 08/17/19 07:44 36.4 C L 72 18 146/69 H 96 08/17/19 04:19 36.5 C 65 18 134/70 95 08/17/19 03:15 74 16 93 08/17/19 00:11 37.0 C 76 16 155/63 H 96 08/16/19 23:23 67 08/16/19 22:28 86 16 92 Laboratory Results Laboratory Results - last 24 hr 08/16/19 08/16/19 08/16/19 11:33 16:27 20:37 WBC RBC Hgb Hct MCV MCH MCHC RDW Std Deviation RDW Coeff of Bhavin Plt Count MPV Immature Gran % (Auto) Neut % (Auto) Lymph % (Auto) [place] % (Auto) Eos % (Auto) Baso % (Auto) Immature Gran # (Auto) Neut # (Auto) Lymph # (Auto) [place] # (Auto) Eos # (Auto) Baso # (Auto) Sodium Potassium Chloride Carbon Dioxide Anion Gap BUN Creatinine Est Cr Clr Drug Dosing Est GFR ( Amer) Est GFR (Non-Af Amer) BUN/Creatinine Ratio Glucose POC Glucose 94 98 100 H Calcium Total Bilirubin AST ALT Alkaline Phosphatase Total Protein Albumin Globulin Albumin/Globulin Ratio 08/17/19 08/17/19 08/17/19 06:11 06:11 07:29 WBC 5.01 RBC 3.04 L Hgb 9.2 L Hct 28.8 L MCV 94.7 MCH 30.3 MCHC 31.9 L RDW Std Deviation 52.3 H RDW Coeff of Bhavin 15.2 H Plt Count 223 MPV 11.0 H Immature Gran % (Auto) 1.6 Neut % (Auto) 47.3 Lymph % (Auto) 25.7 [place] % (Auto) 14.6 Eos % (Auto) 10.4 Baso % (Auto) 0.4 Immature Gran # (Auto) 0.08 H Neut # (Auto) 2.37 Lymph # (Auto) 1.29 [place] # (Auto) 0.73 H Eos # (Auto) 0.52 H Baso # (Auto) 0.02 Sodium 142 Potassium 3.3 L Chloride 110 H Carbon Dioxide 26 Anion Gap 7.0 BUN 41 H Creatinine 2.44 H Est Cr Clr Drug Dosing 23.6 Est GFR ( Amer) 22.2 Est GFR (Non-Af Amer) 19.1 BUN/Creatinine Ratio 16.6 Glucose 88 POC Glucose 101 H Calcium 8.4 L Total Bilirubin 0.3 AST 11 L ALT 11 L Alkaline Phosphatase 98 Total Protein 7.0 Albumin 2.9 L Globulin 4.1 H Albumin/Globulin Ratio 0.7 L (1) PNA (pneumonia) Laterality: left Lung location: upper lobe of lung Pneumonia type: due to unspecified organism Qualified Code(s): J18.9 - Pneumonia, unspecified organism (2) Hypertension Hypertension type: essential hypertension Qualified Code(s): I10 - Essential (primary) hypertension
--- NOTE | 2019-08-17 09:42 | Hospitalist Progress Note ---
Date of Service August 17, 2019 Assessment & Plan (1) PNA (pneumonia): ASSESSMENT AND PLAN: This is a 73-year-old female who presents with lethargy and weakness and also hypoxia. 1. Hypoxia, most likely [id number] diastolic congestive heart failure, possibly superimposed pneumonia. Received IV Lasix 40 in the ER. Will continue PO Lasix. Daily weights, I's and O's, Cardiology on case. 2. Pneumonia. Has some cough. On chest x-ray, left upper lobe infiltrate. No leukocytosis, afebrile. COVID test is negative. The patient was recently in [facility] for rehabilitation, discharged on 08/06/2019. Empirically received vancomycin and Rocephin in the ER. Will continue with Rocephin and doxycycline. MRSA screen is positive. 3. Acute kidney injury on chronic kidney disease stage IV. Baseline creatinine around 2.2 to 2.3, follow the labs. 4. Diabetes, Insulin sliding scale. 5. Obstructive sleep apnea, on CPAP at bedtime. 6. Chronic obstructive pulmonary disease, continue home nebs p.r.n. 7. Hypertension, Monitor blood pressure. 8. Depression, generalized anxiety disorder, on venlafaxine and bupropion. 9. Hypothyroidism, on Synthroid. 10. Hyperlipidemia, on statin. 11. Restless legs syndrome, on Requip. 12. History of Parkinson's, on carbidopa/levodopa. 13. Deep venous thrombosis prophylaxis, heparin subQ. Disposition: PT and OT. Social service to help with discharge planning. Labs Checked ROS-No Headache, No Visual Changes, No Nausea, No Vomiting, No Fever, No Chills, No Neck Pain or Stiffness, No Chest Pain, No Palpitations, No SOB, No BAKER, No Cough, No Sputum, No Wheezing, No Abdominal Pain, No Diarrhea, No Hematemesis, No Hemoptysis, No Unexpected Weight Loss, No Flank pain, No Melena, No Hematochezia, No Frequency, No Urgency, No Burning, No Hematuria, No Rashes, No Diaphoresis. Appetite is Normal Physical Exam Gen-AAO x 3, NAD, Afebrile, Obese, [place] Head-NCAT, EOMI, PERRLA, Anicteric Sclera, No Posterior Pharyngeal Erythema Neck-Supple, No JVD, No Thyromegaly, No Masses, No LAD, No Bruits Lungs-Clear to Auscultation Bilaterally, No Rales, No Rhonchi, No Wheezing, No Crepitus Chest-No S4, +S1, +S2, No S3, No Murmurs, No Rubs, No Gallops, No Ectopy Abdomen-Soft, Bowel Sounds Present, Non Tender, Non Distended, No Hepatomegaly, No Splenomegaly, No Palpable Masses, No Rebound, No Rigidity, No Guarding Musculoskeletal-Full Range of Motion Bilaterally, No CVAT Extremities-No Cyanosis, No Clubbing, No Edema Nuero-Cranial Nerves II-XII grossly intact, Motor WNL, DTRs WNL, Strength WNL, Non Focal Psych-Normal Mood Admission and Anticipated Discharge Date Admission Date: August 15, 2019 Results & Data Results & Data ([facility]) Vital Signs (Past 12 Hours) Vital Signs Temp Pulse Pulse Resp BP Pulse Ox 08/17/19 07:44 36.4 C L 72 18 146/69 H 96 08/17/19 04:19 36.5 C 65 18 134/70 95 08/17/19 03:15 74 16 93 08/17/19 00:11 37.0 C 76 16 155/63 H 96 08/16/19 23:23 67 08/16/19 22:28 86 16 92 (1) PNA (pneumonia) Laterality: left Lung location: upper lobe of lung Pneumonia type: due to unspecified organism Qualified Code(s): J18.9 - Pneumonia, unspecified organism
--- NOTE | 2019-08-17 10:30 | XRay Report ---
XR chest 1V portable CLINICAL HISTORY: chf, ? pneumonia dyspnea COMPARISON STUDY: 08/15/2019 FINDINGS: Improved aeration left upper lung. Slight improvement in aeration left base. Mild decrease in prominence of the pulmonary vasculature as well as cardiac size. IMPRESSION: Improving components of congestive failure. Improving left apical infiltrate. ACT 112: Negative or not required by law. The above report was generated using voice recognition software. It may contain grammatical, syntax or spelling errors. Electronically signed by: Ortega Gonsales M.D. 08/17/2019 10:28 AM
[2019-08-17] MEDS: ISOSORBIDE DINITRATE 10 MG TAB PO SCH ×2 (12:59→18:14)
[2019-08-17] MEDS: cefTRIAXone SODIUM 2,000 MG in DEXTROSE 5% 50 ML IV SCH (16:06)
[2019-08-17] MEDS: FUROSEMIDE 20 MG TAB PO SCH (18:13)
[2019-08-17] MEDS: PRAVASTATIN SOD 40 MG TAB PO SCH (20:40)
[2019-08-17] MEDS: MELATONIN 3 MG TAB PO SCH (20:40)
[2019-08-17] MEDS: PRAMIPEXOLE DIHYDROCHLO 0.25 MG TAB PO SCH (20:46)
[2019-08-17] MEDS: TERAZOSIN HCL 5 MG CAP PO SCH (20:50)
[2019-08-18] MEDS: DOXYCYCLINE HYCLATE 100 MG in DEXTROSE 5% 100 ML IV SCH ×2 (00:25→12:55)
[2019-08-18] MEDS: HEPARIN SOD 5,000 UNIT/0.5 ML VIAL SQ SCH ×3 (06:02→22:00)
[2019-08-18] MEDS: LEVOTHYROXINE SODIUM 125 MCG TABLET PO SCH (06:02)
[2019-08-18 06:34] LABS: Basophils # (auto) 0.04 K/uL (0-0.2); Basophils % (auto) 0.7 %; Eosinophils # (auto) 0.57 K/uL (0-0.5); Eosinophils % (auto) 9.9 %; Hematocrit (blood only) 27.4 % (37-47); Hemoglobin 8.6 g/dL (12.0-16.0); Immature Granulocytes % (auto) 1.7 %; Lymphocytes # (auto) 1.14 K/uL (1.2-3.4); Lymphocytes % (auto) 19.8 %; Mean Corpuscular Hemoglobin 29.4 pg (25-34); Mean Corpuscular Hgb Conc 31.4 g/dL (32-36); Mean Corpuscular Volume 93.5 fL (80-100); Mean Platelet Volume 10.6 fL (7.4-10.4); Monocytes # (auto) 0.78 K/uL (0.11-0.59); Monocytes % (auto) 13.5 %; Neutrophils # (auto) 3.14 K/uL (1.4-6.5); Neutrophils % (auto) 54.4 %; Platelet Count 227 K/uL (130-400); RDW Coefficient of Variation 14.9 % (11.5-14.5); RDW Standard Deviation 50.9 fL (36.4-46.3); Red Blood Count 2.93 M/uL (4.2-5.4); White Blood Count 5.77 K/uL (4.8-10.8)
[2019-08-18 07:01] LABS: BUN Creatinine Ratio 15.5 (10-20); Calcium 8.3 mg/dl (8.5-10.1); Creatinine Clr Calc Pharmacy 22.1 ml/min; Est GFR (African American) 20.8; Potassium 3.6 mmol/L (3.5-5.1)
[2019-08-18 07:03] LABS: Albumin Globulin Ratio 0.8 (0.9-2); Bilirubin,Total 0.3 mg/dl (0.2-1)
[2019-08-18] MEDS: CYANOCOBALAMIN 500 MCG TABLET (VITAMIN B-12) PO SCH (07:55)
[2019-08-18] MEDS: OXYBUTYNIN CHLORIDE XL 5 MG TABCR PO SCH (07:55)
[2019-08-18] MEDS: VENLAFAXINE HCL XR 75 MG CAPXR PO SCH (07:56)
[2019-08-18] MEDS: BETAHISTINE PO SCH ×2 (07:57→22:00)
[2019-08-18] MEDS: AMLODIPINE BESYLATE 5 MG TAB PO SCH (07:57)
[2019-08-18] MEDS: CARBIDOPA/LEVODOPA 25/100MG TAB PO SCH ×3 (07:58→17:49)
[2019-08-18] MEDS: FUROSEMIDE 20 MG TAB PO SCH ×2 (07:59→18:15)
[2019-08-18] MEDS: buPROPion HCl 75 MG TABLET PO SCH ×2 (08:00→21:59)
[2019-08-18] MEDS: ISOSORBIDE DINITRATE 10 MG TAB PO SCH ×3 (08:01→18:16)
[2019-08-18] MEDS: PREGABALIN 100 MG CAP PO SCH ×2 (08:05→22:06)
[2019-08-18] MEDS: INSULIN ASPART 100 UNITS/ML 3 ML PEN SC SCH ×4 (08:07→22:09)
[2019-08-18] MEDS ORDERED: POTASSIUM CHLORIDE 20 MEQ TABCR PO STA (08:28)
--- NOTE | 2019-08-18 11:23 | Cardiology Progress Note ---
Date of Service August 18, 2019 Assessment & Plan (1) Acute hypoxemic respiratory failure: Very complex 73-year-old female with multiple underlying medical issues as outlined with recent acute decline that appears multifactorial with component of pneumonia and decompensated diastolic heart failure. Patient begun on diuretics and antihypertensives have been continued. No acute changes on EKG with chronic left bundle branch block present. Exam reflects aortic and mitral systolic murmurs. Chronic renal disease and anemia noted Patient clinically improved after several days of aggressive diuresis. Yesterday she was transitioned to oral diuretics with furosemide 60 mg BID. She diuresed approx 2.5 L. Creatinine bumped slightly. Will monitor. Recheck in AM. Monitor I+O's. Per prior notes, consider adding low dose metoprolol succinate if tolerated. Monitor HR's. Case discussed with Dr. Hyatt. Patient continuing to improve with diuresis. Monitor renal function with current oral diuretics. (2) Acute on chronic diastolic CHF (congestive heart failure): (3) PNA (pneumonia): (4) LBBB (left bundle branch block): (5) Hypertension: (6) Anemia: (7) Acute renal failure superimposed on stage 3 chronic kidney disease: Supervising Physician Co-Signing Physician Notes Patient seen and examined at the bedside. Respiratory status improved with antibiotic and diuretic therapy. Patient transitioned to oral therapy with continued improvement. VSS, GEN: NAD, AAOx3. Heart: Regular rhythm, no murmur. Lungs: Faint, scattered rhonchi, No rales or wheeze. Ext: No edema. Neuro: moves all extremities. No focal weakness or slurred speech. A/P: Agree with above PA-C history, physical exam, assessment and plan. Continue oral diuretic therapy. Subjective Patient was seen and examined, chart, medications, telemetry reviewed. Patient resting comfortably. Aggressive diuresis noted overnight after transitioning to oral diuretics. Symptoms improving. she voices no acute concerns today. No chest pain. SOB improved. No edema. No dizziness. Review of Systems Review of Systems: All systems reviewed & are unremarkable except as noted in HPI & below Physical Exam Constitutional: WD/WN, vitals as above + obese Eyes: PERRL, conjunctivae normal, anicteric sclerae ENMT: external ear and nose normal, oropharynx normal Neck: + thick neck Respiratory: Diminished breath sounds but appear clear Cardiovascular: Rate/Rhythm: regular rate and regular rhythm Heart Sounds: normal S1, normal S2 and + murmur (Grade 2/6 systolic ejection murmur, no audible apical murmur today) Palpation: S3 nonpalpable Vessels: no JVD and no carotid bruit Extremities: no edema Gastrointestinal (Abdomen): normal bowel sounds, soft, nontender, no hepatosplenomegaly Musculoskeletal: Extremities: no cyanosis and no clubbing Neurologic: moves all extremities Speech / Cognition: + abnormal cognition Results & Data Vital Signs (Past 12 Hours) Vital Signs Temp Pulse Pulse Resp BP Pulse Ox 08/18/19 07:59 36.9 C 60 18 133/67 92 08/18/19 03:30 37 C 65 20 125/62 96 08/18/19 01:22 80 18 93 08/17/19 23:56 36.8 C 78 16 117/60 95 (1) Anemia Anemia type: unspecified type Qualified Code(s): D64.9 - Anemia, unspecified (2) Hypertension Hypertension type: essential hypertension Qualified Code(s): I10 - Essential (primary) hypertension (3) PNA (pneumonia) Laterality: left Lung location: upper lobe of lung Pneumonia type: due to unspecified organism Qualified Code(s): J18.9 - Pneumonia, unspecified organism
[2019-08-18] MEDS: cefTRIAXone SODIUM 2,000 MG in DEXTROSE 5% 50 ML IV SCH (17:49)
[2019-08-18] MEDS ORDERED: Nursing to Pharmacy Communication ONE (17:56)
--- NOTE | 2019-08-18 19:58 | Hospitalist Progress Note ---
Date of Service August 18, 2019 Assessment & Plan (1) PNA (pneumonia): Acute hypoxemic respiratory failure Present on admission with weakness and hypoxia CXR on admission showed cardiomegaly with developing pulmonary edema. Superimposed left upper lobe infiltrate. COVID 19 negative Received IV vancomycin and Rocephin in the ER. MRSA screen is positive. Continue IV Rocephin and Doxycycline Decompensated diastolic CHF Pt has been diuresis well IV lasix changed to PO lasix 60mg BID Will monitor BMP closely Acute kidney injury on chronic kidney disease stage IV. Creatinine 2.5 today with Baseline creatinine around 2.2 to 2.3 Monitor BMP while on diuresis Diabetes Most recent Hba1c 4.3 Insulin sliding scale. Continue monitor BS Obstructive sleep apnea Onn CPAP at bedtime. Hypertension BP stable Continue amlodipine and isosorbide dinitrate Continue monitor BP ' Depression/Generalized anxiety disorder Continue on venlafaxine and bupropion. Hypothyroidism Continue Synthroid. Hyperlipidemia on statin. Restless legs syndrome Continue Requip. Parkinson DX Continue Carbidopa/levodopa. DVT px on heparin subQ. Disposition: PT and OT. Social service to help with discharge planning. Admission and Anticipated Discharge Date Admission Date: August 15, 2019 Subjective Pt was seen and examined Lying in bed with no distress Pt said that her breathing is stable Denies any chest pain, palpitation and SOB Physical Exam Physical Exam: General- No acute distress Head- atraumatic Eyes- PERRL, EOMI, ENT- Decrease hearing function Neck- supple, no JVD Lungs- clear to auscultation Heart- regular rhythm; + murmur Abdomen- normal bowel sounds, soft, nontender Extremities- no calf tenderness, trace edema Neuro- alert, oriented x 3; PERRL, EOMI; no facial palsy; no dysarthria Skin- warm & dry Results & Data Results & Data ([facility]) Vital Signs (Past 12 Hours) Vital Signs Temp Pulse Resp BP BP Pulse Ox 08/18/19 19:20 37.2 C 69 20 112/61 93 08/18/19 15:48 36.9 C 74 20 111/53 L 92 08/18/19 11:58 37.0 C 66 16 131/55 L 95 08/18/19 07:59 36.9 C 60 18 133/67 92 (1) PNA (pneumonia) Laterality: left Lung location: upper lobe of lung Pneumonia type: due to unspecified organism Qualified Code(s): J18.9 - Pneumonia, unspecified organism
[2019-08-18] MEDS: PRAMIPEXOLE DIHYDROCHLO 0.25 MG TAB PO SCH (21:59)
[2019-08-18] MEDS: PRAVASTATIN SOD 40 MG TAB PO SCH (22:00)
[2019-08-18] MEDS: MELATONIN 3 MG TAB PO SCH (22:00)
[2019-08-18] MEDS: TERAZOSIN HCL 5 MG CAP PO SCH (22:05)
[2019-08-19] MEDS: DOXYCYCLINE HYCLATE 100 MG in DEXTROSE 5% 100 ML IV SCH ×2 (01:18→11:51)
[2019-08-19] MEDS: LEVOTHYROXINE SODIUM 125 MCG TABLET PO SCH (06:14)
[2019-08-19] MEDS: HEPARIN SOD 5,000 UNIT/0.5 ML VIAL SQ SCH ×3 (06:14→20:51)
[2019-08-19 07:07] LABS: BUN Creatinine Ratio 17.6 (10-20); Calcium 8.4 mg/dl (8.5-10.1); Creatinine Clr Calc Pharmacy 21.9 ml/min; Est GFR (African American) 20.7; Est GFR (Non-African American) 17.9; Potassium 3.4 mmol/L (3.5-5.1)
[2019-08-19] MEDS: ISOSORBIDE DINITRATE 10 MG TAB PO SCH ×3 (08:07→16:11)
[2019-08-19] MEDS: FUROSEMIDE 20 MG TAB PO SCH ×2 (08:07→16:12)
[2019-08-19] MEDS: VENLAFAXINE HCL XR 75 MG CAPXR PO SCH (08:08)
[2019-08-19] MEDS: OXYBUTYNIN CHLORIDE XL 5 MG TABCR PO SCH (08:08)
[2019-08-19] MEDS: AMLODIPINE BESYLATE 5 MG TAB PO SCH (08:09)
[2019-08-19] MEDS: CARBIDOPA/LEVODOPA 25/100MG TAB PO SCH ×3 (08:09→16:13)
[2019-08-19] MEDS: CYANOCOBALAMIN 500 MCG TABLET (VITAMIN B-12) PO SCH (08:10)
[2019-08-19] MEDS: BETAHISTINE PO SCH ×2 (08:10→20:51)
[2019-08-19] MEDS: buPROPion HCl 75 MG TABLET PO SCH ×2 (08:12→20:51)
[2019-08-19] MEDS: PREGABALIN 100 MG CAP PO SCH ×2 (08:16→20:55)
[2019-08-19 09:06] LABS: Hematocrit (blood only) 28.6 % (37-47); Hemoglobin 8.9 g/dL (12.0-16.0); Mean Corpuscular Hemoglobin 28.8 pg (25-34); Mean Corpuscular Hgb Conc 31.1 g/dL (32-36); Mean Corpuscular Volume 92.6 fL (80-100); Mean Platelet Volume 10.9 fL (7.4-10.4); Platelet Count 266 K/uL (130-400); RDW Coefficient of Variation 14.7 % (11.5-14.5); RDW Standard Deviation 49.6 fL (36.4-46.3); Red Blood Count 3.09 M/uL (4.2-5.4); White Blood Count 5.92 K/uL (4.8-10.8)
--- NOTE | 2019-08-19 09:17 | Cardiology Progress Note ---
Date of Service August 19, 2019 Assessment & Plan (1) Acute hypoxemic respiratory failure: Very complex 73-year-old female with multiple underlying medical issues as outlined with recent acute decline that appears multifactorial with component of pneumonia and decompensated diastolic heart failure. Patient begun on diuretics and antihypertensives have been continued. No acute changes on EKG with chronic left bundle branch block present. Exam reflects aortic and mitral systolic murmurs. Chronic renal disease and anemia noted Patient clinically improved after several days of aggressive diuresis. She has been transitioned to oral diuretics, furosemide 60 mg BID (prior home dose was 60 mg in AM and 40 mg in afternoon). Creatinine relatively stable. She was to establish with nephrology as outpaitnet but this was cancelled during COVID. Needs to establish. was transitioned to oral diuretics with furosemide 60 mg BID. She diuresed approx 2.5 L. Supplemental Potassium resumed. Prior home dose 40 meq daily. this was restarted this morning. Monitor I+O's. Per prior notes, consider adding low dose metoprolol succinate if tolerated. Will not add at this time given HR's in the 50-60 range. Case discussed with Dr. Hyatt. Patient continues to improve with diuresis. Appears at baseline Recommend discharge on furosemide 60 mg BID, potassium 40 meq, amlodipine 5 mg, hydralazine 25 TID, Isordil 10 mg TID, statin. Recommend rescheduling nephrology appt that was previously cancelled due to COVID as outpatient. Will arrange 2 week hosp f/u with Dr. Diop at [facility]. (2) Acute on chronic diastolic CHF (congestive heart failure): (3) PNA (pneumonia): (4) LBBB (left bundle branch block): (5) Hypertension: (6) Anemia: (7) Acute renal failure superimposed on stage 3 chronic kidney disease: Supervising Physician Co-Signing Physician Notes Patient seen and examined at the bedside. Denies chest pain or unusual shortness of breath. No sustained dysrhythmias on telemetry. Patient requesting discharge if possible. VSS, GEN: NAD, AAOx3. Heart: Regular rhythm, no murmur. Lungs: Faint, scattered rhonchi, No rales or wheeze. Ext: No edema. Neuro: moves all extremities. No focal weakness or slurred speech. A/P: Agree with above PA-C history, physical exam, assessment and plan. Continue oral diuretic therapy. No further inpatient cardiology testing or intervention at this time. Cardiology will sign off. Please call with questions. Subjective Patient resting in bed comfortably this morning. She denies acute cardiac co mplaints. Shortness of breath improved. Cough improving. No edema. She is requesting discharge soon. Review of Systems Review of Systems: All systems reviewed & are unremarkable except as noted in HPI & below Physical Exam Constitutional: WD/WN, vitals as above + obese Eyes: PERRL, conjunctivae normal, anicteric sclerae ENMT: external ear and nose normal, oropharynx normal Neck: + thick neck Cardiovascular: Rate/Rhythm: regular rate and regular rhythm Heart Sounds: normal S1, normal S2 and + murmur (Grade 2/6 systolic ejection murmur, no audible apical murmur today) Palpation: S3 nonpalpable Vessels: no JVD and no carotid bruit Extremities: no edema Gastrointestinal (Abdomen): normal bowel sounds, soft, nontender, no hepatosplenomegaly Musculoskeletal: Extremities: no cyanosis and no clubbing Neurologic: moves all extremities Speech / Cognition: + abnormal cognition Results & Data Vital Signs (Past 12 Hours) Vital Signs Temp Pulse Pulse Resp BP BP Pulse Ox 08/19/19 07:21 36.6 C 59 L 19 144/56 H 95 08/19/19 03:58 37.2 C 73 18 171/71 H 92 08/18/19 23:50 36.6 C 71 18 131/63 93 Laboratory Results 08/19/19 08/19/19 08/19/19 Range/Units 07:20 06:31 06:21 WBC 5.92 (4.8-10.8) K/uL RBC 3.09 L (4.2-5.4) M/uL Hgb 8.9 L (12.0-16.0) g/dL Hct 28.6 L (37-47) % MCV 92.6 (80-100) fL MCH 28.8 (25-34) pg MCHC 31.1 L (32-36) g/dL RDW Std Deviation 49.6 H (36.4-46.3) fL RDW Coeff of Bhavin 14.7 H (11.5-14.5) % Plt Count 266 (130-400) K/uL MPV 10.9 H (7.4-10.4) fL Sodium 141 (136-145) mmol/L Potassium 3.4 L (3.5-5.1) mmol/L Chloride 106 (98-107) mmol/L Carbon Dioxide 27 (21-32) mmol/L Anion Gap 8.0 (3-11) BUN 45 H (7-18) mg/dl Creatinine 2.58 H (0.6-1.2) mg/dl Est Cr Clr Drug Dosing 21.9 ml/min Est GFR ( Amer) 20.7 Est GFR (Non-Af Amer) 17.9 BUN/Creatinine Ratio 17.6 (10-20) Glucose 97 (70-99) mg/dl POC Glucose 94 (70-99) mg/dl Calcium 8.4 L (8.5-10.1) mg/dl 08/18/19 08/18/19 08/18/19 Range/Units 20:14 16:29 11:39 WBC (4.8-10.8) K/uL RBC (4.2-5.4) M/uL Hgb (12.0-16.0) g/dL Hct (37-47) % MCV (80-100) fL MCH (25-34) pg MCHC (32-36) g/dL RDW Std Deviation (36.4-46.3) fL RDW Coeff of Bahvin (11.5-14.5) % Plt Count (130-400) K/uL MPV (7.4-10.4) fL Sodium (136-145) mmol/L Potassium (3.5-5.1) mmol/L Chloride (98-107) mmol/L Carbon Dioxide (21-32) mmol/L Anion Gap (3-11) BUN (7-18) mg/dl Creatinine (0.6-1.2) mg/dl Est Cr Clr Drug Dosing ml/min Est GFR ( Amer) Est GFR (Non-Af Amer) BUN/Creatinine Ratio (10-20) Glucose (70-99) mg/dl POC Glucose 158 H 108 H 135 H (70-99) mg/dl Calcium (8.5-10.1) mg/dl (1) Anemia Anemia type: unspecified type Qualified Code(s): D64.9 - Anemia, unspecified (2) Hypertension Hypertension type: essential hypertension Qualified Code(s): I10 - Essential (primary) hypertension (3) PNA (pneumonia) Laterality: left Lung location: upper lobe of lung Pneumonia type: due to unspecified organism Qualified Code(s): J18.9 - Pneumonia, unspecified organism
[2019-08-19] MEDS: INSULIN ASPART 100 UNITS/ML 3 ML PEN SC SCH ×4 (09:25→20:51)
[2019-08-19] MEDS ORDERED: Nursing to Pharmacy Communication ONE ×2 (09:43→11:34)
[2019-08-19] MEDS: POTASSIUM CHLORIDE 20 MEQ TABCR PO SCH (10:15)
[2019-08-19] MEDS: cefTRIAXone SODIUM 2,000 MG in DEXTROSE 5% 50 ML IV SCH (16:10)
--- NOTE | 2019-08-19 19:37 | Hospitalist Progress Note ---
Date of Service August 19, 2019 Assessment & Plan (1) PNA (pneumonia): Acute hypoxemic respiratory failure Present on admission with weakness and hypoxia CXR on admission showed cardiomegaly with developing pulmonary edema. Superimposed left upper lobe infiltrate. COVID 19 negative Received IV vancomycin and Rocephin in the ER. MRSA screen is positive. Continue IV Rocephin and Doxycycline, will transition to oral in am Decompensated diastolic CHF Pt has been diuresis well IV lasix changed to PO lasix 60mg BID Continue monitor BMP while on Lasix Acute kidney injury on chronic kidney disease stage IV. Creatinine 2.5 today with Baseline creatinine around 2.2 to 2.3 Monitor BMP while on diuresis Pt had an outpatient appointment with nephrology that was cancelled Case discussed with nephrology and agreed to see pt outpatient Hypoxia Possible related to Pneumonia Will complete course of the antibiotic Will get an overnight pulse ox Continue oxygen supplement Will try to wean off oxygen Diabetes Most recent Hba1c 4.3 Insulin sliding scale. Continue monitor BS Obstructive sleep apnea Onn CPAP at bedtime. Hypertension BP stable Continue amlodipine and isosorbide dinitrate Continue monitor BP ' Depression/Generalized anxiety disorder Continue on venlafaxine and bupropion. Hypothyroidism Continue Synthroid. Hyperlipidemia on statin. Restless legs syndrome Continue Requip. Parkinson DX Continue Carbidopa/levodopa. DVT px on heparin subQ. Disposition: PT and OT. Will discharge home today Admission and Anticipated Discharge Date Admission Date: August 15, 2019 Subjective Pt was seen and examined Lying in bed with no distress Pt said that she feels much better She would like to go home today She said that she does not use oxygen at home, but has been required oxygen Nurse tried to wean her off and her oxygen level dropped to 83's Denies any chest pain, palpitation and fever Physical Exam Physical Exam: General- No acute distress Head- atraumatic Eyes- PERRL, EOMI, ENT- Decrease hearing function Neck- supple, no JVD Lungs- clear to auscultation Heart- regular rhythm; + murmur Abdomen- normal bowel sounds, soft, nontender Extremities- no calf tenderness, trace edema Neuro- alert, oriented x 3; PERRL, EOMI; no facial palsy; no dysarthria Skin- warm & dry Results & Data Results & Data ([facility]) Vital Signs (Past 12 Hours) Vital Signs Temp Pulse Resp BP BP Pulse Ox 08/19/19 15:45 36.7 C 60 20 123/65 96 08/19/19 11:17 36.7 C 65 20 116/54 L 93 (1) PNA (pneumonia) Laterality: left Lung location: upper lobe of lung Pneumonia type: due to unspecified organism Qualified Code(s): J18.9 - Pneumonia, unspecified organism
[2019-08-19] MEDS: MELATONIN 3 MG TAB PO SCH (20:51)
[2019-08-19] MEDS: PRAVASTATIN SOD 40 MG TAB PO SCH (20:51)
[2019-08-19] MEDS: PRAMIPEXOLE DIHYDROCHLO 0.25 MG TAB PO SCH (20:51)
[2019-08-19] MEDS: TERAZOSIN HCL 5 MG CAP PO SCH (20:51)
[2019-08-20] MEDS: DOXYCYCLINE HYCLATE 100 MG in DEXTROSE 5% 100 ML IV SCH ×2 (00:37→12:18)
[2019-08-20 06:28] LABS: Base Excess ABG 2.1 mEq/L (-9-1.8); HCO3 ABG 28 mmol/L (19-24); Oxygen Saturation ABG 97.3 % (90-95); PCO2 ABG 49 mmHg (35-46); PO2 ABG 97 mmHg (80-95); pH ABG 7.37 (7.35-7.45)
[2019-08-20] MEDS: LEVOTHYROXINE SODIUM 125 MCG TABLET PO SCH (06:29)
[2019-08-20] MEDS: HEPARIN SOD 5,000 UNIT/0.5 ML VIAL SQ SCH ×2 (06:29→14:41)
[2019-08-20 06:33] LABS: Allen Test Pos (Pos)
[2019-08-20 07:07] LABS: BUN Creatinine Ratio 18.5 (10-20); Calcium 8.3 mg/dl (8.5-10.1); Creatinine Clr Calc Pharmacy 21.3 ml/min; Est GFR (African American) 20.5; Est GFR (Non-African American) 17.7; Potassium 3.5 mmol/L (3.5-5.1)
[2019-08-20] MEDS: INSULIN ASPART 100 UNITS/ML 3 ML PEN SC SCH ×2 (09:38→11:59)
[2019-08-20] MEDS: VENLAFAXINE HCL XR 75 MG CAPXR PO SCH (09:38)
[2019-08-20] MEDS: buPROPion HCl 75 MG TABLET PO SCH (09:38)
[2019-08-20] MEDS: OXYBUTYNIN CHLORIDE XL 5 MG TABCR PO SCH (09:39)
[2019-08-20] MEDS: AMLODIPINE BESYLATE 5 MG TAB PO SCH (09:39)
[2019-08-20] MEDS: CARBIDOPA/LEVODOPA 25/100MG TAB PO SCH ×2 (09:40→12:18)
[2019-08-20] MEDS: ISOSORBIDE DINITRATE 10 MG TAB PO SCH ×2 (09:40→12:18)
[2019-08-20] MEDS: CYANOCOBALAMIN 500 MCG TABLET (VITAMIN B-12) PO SCH (09:40)
[2019-08-20] MEDS: POTASSIUM CHLORIDE 20 MEQ TABCR PO SCH (09:41)
[2019-08-20] MEDS: FUROSEMIDE 20 MG TAB PO SCH (09:41)
[2019-08-20] MEDS: BETAHISTINE PO SCH (09:42)
[2019-08-20] MEDS: PREGABALIN 100 MG CAP PO SCH (09:48)
--- NOTE | 2019-08-20 14:57 | Hospitalist Progress Note ---
Date of Service August 20, 2019 Assessment & Plan (1) PNA (pneumonia): Acute hypoxemic respiratory failure Present on admission with weakness and hypoxia CXR on admission showed cardiomegaly with developing pulmonary edema. Superimposed left upper lobe infiltrate. COVID 19 negative Received IV vancomycin and Rocephin in the ER. MRSA screen is positive. Continue IV Rocephin# 6 days and Doxycycline # 5 days Will transition to oral Doxycycline BID x 2 more days Decompensated diastolic CHF Pt has been diuresis well IV lasix changed to PO lasix 60mg BID Cardiology on board Case discussed with cardiology Recommend discharge on furosemide 60 mg BID, potassium 40 meq, amlodipine 5 mg, hydralazine 25 TID, Isordil 10 mg TID Follow up with cardiology in 2 weeks Acute kidney injury on chronic kidney disease stage IV. Creatinine 2.5 today with Baseline creatinine around 2.2 to 2.3 Monitor BMP while on diuresis Pt had an outpatient appointment with nephrology that was cancelled Case discussed with nephrology and agreed to see pt outpatient Hypoxia Possible related to Pneumonia Received Rocephin IV x days Will complete course of the antibiotic with doxy overnight pulse ox showed pt required oxygen at night Continue oxygen supplement Script given to case resolution specialist for oxygen supplement Diabetes Most recent Hba1c 4.3 Insulin sliding scale. Continue monitor BS Obstructive sleep apnea Continue CPAP at bedtime with oxygen supplement Hypertension BP stable Continue amlodipine, Hydralazine and isosorbide dinitrate Continue monitor BP Depression/Generalized anxiety disorder Continue on venlafaxine and bupropion. Hypothyroidism Continue Synthroid. Hyperlipidemia on statin. Restless legs syndrome Continue Requip. Parkinson DX Continue Carbidopa/levodopa. DVT px on heparin subQ. Disposition: PT and OT. Will discharge home today Admission and Anticipated Discharge Date Admission Date: August 15, 2019 Subjective Pt was seen and examined Lying in bed with no distress Pt said that she feels ok She said that she is ready to go home today She continues to require oxygen supplement I spoke to her last night provided with updates Denies any chest pain, palpitation, dizziness and SOB Physical Exam Physical Exam: General- No acute distress Head- atraumatic Eyes- PERRL, EOMI, ENT- Decrease hearing function Neck- supple, no JVD Lungs- clear to auscultation Heart- regular rhythm; + murmur Abdomen- normal bowel sounds, soft, nontender Extremities- no calf tenderness Neuro- alert, oriented x 3; PERRL, EOMI; no facial palsy; no dysarthria Skin- warm & dry Results & Data Results & Data ([facility]) Vital Signs (Past 12 Hours) Vital Signs Temp Pulse Pulse Pulse Pulse Resp BP 08/20/19 11:30 36.6 C 67 20 109/58 L 08/20/19 08:22 36.7 C 65 18 08/20/19 08:00 60 08/20/19 03:19 36.5 C 61 20 128/66 08/20/19 03:10 81 BP Pulse Ox Pulse Ox 08/20/19 11:30 88 L 08/20/19 08:22 143/69 H 96 08/20/19 08:00 08/20/19 03:19 93 08/20/19 03:10 96 (1) PNA (pneumonia) Laterality: left Lung location: upper lobe of lung Pneumonia type: due to unspecified organism Qualified Code(s): J18.9 - Pneumonia, unspecified organism
[2019-08-20] MEDS: cefTRIAXone SODIUM 2,000 MG in DEXTROSE 5% 50 ML IV SCH (15:04)
--- NOTE | 2019-08-21 00:52 | Discharge Summary ---
Date of Service August 20, 2019 Admission HPI Per Admitting Provider CHIEF COMPLAINT: Weakness. HISTORY OF PRESENT ILLNESS: This is a 73-year-old female with past medical history significant for type 2 diabetes, hypothyroidism, hyperlipidemia, obstructive sleep apnea on CPAP, COPD, chronic diastolic CHF, hypertension steatohepatitis nonalcoholic, morbid obesity, restless legs syndrome, venous dermatitis of both lower extremities, Parkinson disease, iron deficiency anemia, rheumatoid arthritis, depression, generalized anxiety disorder, history of non-ST elevated myocardial infarction, history of multiple falls, mild neurocognitive disorder. The patient is nonambulatory. As per , the patient uses a powered wheelchair, but she is able to stand up. The patient recently, in April, she had a subdural hematoma and she was at [place] and then she was discharged to [facility]. As per her she was discharged back home on 08/06/2019. Apparently, she was doing fine until yesterday and today morning she was feeling weak to stand up, generally she can stand up, and when the home health nurse checked, her oxygen saturations were low. She has some mild cough today. No fevers. That is the reason she was brought into the ER. She also complained of headache initially, but right now she denies any headaches. Because of the COVID pandemic, COVID testing was done and it was negative. The patient is very hard of hearing. Currently she does not have any headache. Currently no shortness of breath or any pain. Denies any nausea. As per , no diarrhea or constipation. Her appetite was good. No other complaints except for weakness. Currently, she is saturating fine on 3 liters and hemodynamically stable. Admission Exam Per Admitting Provider VITAL SIGNS: Temperature 37, pulse 77, respiratory rate 19, blood pressure 159/92, oxygen 95% on 3 liters. HEENT: No pallor, no icterus. Pupils equal, round, and reactive to light. NECK: No JVD, no neck masses seen. CARDIOVASCULAR: S1, S2 heard, regular rate and rhythm, no murmur, no gallop. RESPIRATORY SYSTEM: Normal AP diameter. No accessory muscle use. Bilateral fine crackles. Has no wheezing. ABDOMEN: Soft, bowel sounds present, nontender. No distention. CENTRAL NERVOUS SYSTEM: Alert and awake. Obeys simple commands. Moves extremities. EXTREMITIES: Bilateral lower extremity edema present. No obvious erythema seen. Principal Diagnosis PNA (pneumonia): Acute hypoxemic respiratory failure Decompensated diastolic CHF Acute kidney injury on chronic kidney disease stage IV. Hypoxia Diabetes Obstructive sleep apnea Hypertension Depression/Generalized anxiety disorder Hypothyroidism Hyperlipidemia Restless legs syndrome Parkinson DX Discharge Exam General- No acute distress Head- atraumatic Eyes- PERRL, EOMI, ENT- Decrease hearing function Neck- supple, no JVD Lungs- clear to auscultation Heart- regular rhythm; + murmur Abdomen- normal bowel sounds, soft, nontender Extremities- no calf tenderness Neuro- alert, oriented x 3; PERRL, EOMI; no facial palsy; no dysarthria Skin- warm & dry Discharge Data Allergies Allergy/AdvReac Type Severity Reaction Status Date / Time No Known Allergies Allergy Verified 08/15/19 15:34 Consultations 08/15/19 18:06 ED Decision to Admit Stat 08/15/19 22:37 Consult Case Management - Discharge Planning Routine 08/16/19 08:00 Consult Cardiology Routine Ordered Studies 08/15/19 15:25 CT head/brain wo con Stat 08/15/19 16:28 US venous doppler LE RT Stat 08/16/19 08:30 US venous doppler LE LT Routine XR chest 1V portable CLINICAL HISTORY: sob dyspnea COMPARISON STUDY: 05/02/2019 FINDINGS: Increased cardiac size. Development of pulmonary edema possibly with a superimposed left upper lobe infiltrate. Diaphragms are smooth. IMPRESSION: 1. Cardiomegaly with developing pulmonary edema. 2. Superimposed left upper lobe infiltrate. ACT 112: Negative or not required by law. The above report was generated using voice recognition software. It may contain grammatical, syntax or spelling errors. Electronically signed by: Ortega Gonsales M.D. 08/15/2019 3:40 PM Dictated: 08/15/19 1539 Transcribed: 08/15/[address] head/brain wo con CT DOSE: 709.48 mGy.cm HISTORY: Mental status change headache, lethargy TECHNIQUE: Multiaxial CT images of the head were performed without the use of intravenous contrast. A dose lowering technique was utilized adhering to the principles of ALARA. Comparison: 05/02/2019 Findings: Moderate mucosal thickening of the sinuses The calvarium and skull base are intact. The ventricles and sulci are within normal limits. There is no mass, hematoma, midline shift, or acute infarct. Impression: No acute intracranial abnormality. Chronic sinus change. ACT 112: Negative or not required by law. The above report was generated using voice recognition software. It may contain grammatical, syntax or spelling errors. Electronically signed by: Ortega Gonsales M.D. 08/15/2019 3:56 PM Dictated: 08/15/19 1555 Transcribed: 08/15/19 1555 US venous doppler LE RT CLINICAL HISTORY: edema, sob COMPARISON STUDY: No previous studies for comparison. FINDINGS: Real-time and color flow Doppler imaging were performed. Flow was seen within the femoral, popliteal and calf veins with no intraluminal thrombus demonstrated. The saphenous vein is patent. IMPRESSION: No evidence of deep venous thrombosis. ACT 112: Negative or not required by law. The above report was generated using voice recognition software. It may contain grammatical, syntax or spelling errors. Electronically signed by: Ortega Gonsales M.D. 08/15/2019 5:05 PM Dictated: 08/15/19 1705 Transcribed: 08/15/19 170 LEFT LOWER EXTREMITY VENOUS DOPPLER HISTORY: Left leg edema. dvt? edema. COMPARISON STUDY: None. FINDINGS: There is normal compressibility, flow, and augmentation within the left lower extremity deep venous system. IMPRESSION: No DVT within the left lower extremity. ACT 112: Negative or not required by law. Electronically signed by: Carlos Jenkins M.D. 08/16/2019 12:22 PM Dictated: 08/16/19 1222 Transcribed: 08/16/19 1222 XR chest 1V portable CLINICAL HISTORY: chf, ? pneumonia dyspnea COMPARISON STUDY: 08/15/2019 FINDINGS: Improved aeration left upper lung. Slight improvement in aeration left base. Mild decrease in prominence of the pulmonary vasculature as well as cardiac size. IMPRESSION: Improving components of congestive failure. Improving left apical infiltrate. ACT 112: Negative or not required by law. The above report was generated using voice recognition software. It may contain grammatical, syntax or spelling errors. Electronically signed by: Ortega Gonsales M.D. 08/17/2019 10:28 AM Dictated: 08/17/19 1028 Transcribed: 08/17/19 1028 Hospital Course (1) PNA (pneumonia): Acute hypoxemic respiratory failure Present on admission with weakness and hypoxia CXR on admission showed cardiomegaly with developing pulmonary edema. Superimposed left upper lobe infiltrate. COVID 19 negative Received IV vancomycin and Rocephin in the ER. MRSA screen is positive. Continue IV Rocephin# 6 days and Doxycycline # 5 days Will transition to oral Doxycycline BID x 2 more days Decompensated diastolic CHF Pt has been diuresis well IV lasix changed to PO lasix 60mg BID Cardiology on board Case discussed with cardiology Recommend discharge on furosemide 60 mg BID, potassium 40 meq, amlodipine 5 mg, hydralazine 25 TID, Isordil 10 mg TID Follow up with cardiology in 2 weeks Acute kidney injury on chronic kidney disease stage IV. Creatinine 2.5 today with Baseline creatinine around 2.2 to 2.3 Monitor BMP while on diuresis Pt had an outpatient appointment with nephrology that was cancelled Case discussed with nephrology and agreed to see pt outpatient Hypoxia Possible related to Pneumonia Received Rocephin IV x days Will complete course of the antibiotic with doxy overnight pulse ox showed pt required oxygen at night Continue oxygen supplement Script given to rehabilitation caseworker for oxygen supplement Diabetes Most recent Hba1c 4.3 Insulin sliding scale. Continue monitor BS Obstructive sleep apnea Continue CPAP at bedtime with oxygen supplement Hypertension BP stable Continue amlodipine, Hydralazine and isosorbide dinitrate Continue monitor BP Depression/Generalized anxiety disorder Continue on venlafaxine and bupropion. Hypothyroidism Continue Synthroid. Hyperlipidemia on statin. Restless legs syndrome Continue Requip. Parkinson DX Continue Carbidopa/levodopa. DVT px on heparin subQ. Disposition: PT and OT. Will discharge home today Total Time Total Time Spent Total Time Spent (In Minutes): 35 minutes Total Time Includes: Examination of the Patient, Discharge Planning, Medication Reconciliation, Communication With Other Providers and Other Discharge Plan Discharge Items Patient Disposition: Home - Home Health Services Reason For Visit: WEAKNESS Discharge Diagnosis: PNA (pneumonia): Acute hypoxemic respiratory failure Decompensated diastolic CHF Acute kidney injury on chronic kidney disease stage IV. Hypoxia Diabetes Obstructive sleep apnea Hypertension Depression/Generalized anxiety disorder Hypothyroidism Hyperlipidemia Restless legs syndrome Parkinson DX Activity: Resume your previous activity Non-emergency contact: Primary Care Provider, Airport Driver and Clinical Nutritionist Call non-emergency contact if: you have any medication questions Follow-up/Referrals: Bella Power MD [Primary Care Provider] - 08/26/19 4:20 pm (08/26/2019 4:20 PM Provider Bella Rubio MD Department Internal Medicine [facility] ) Diet: Carb Consistent or DM2 and Heart Healthy Addtl Attending Provider Instructions: Follow up with your primary care provider Dr. Darek Rubio on 08/25 @ 4:20 PM Follow up with cardiology in 2 weeks ( Office will call you for the appointment) Follow up with nephrology Check BMP in 1 week to monitor kidney function and electrolytes Follow up a healthy diabetes diet and limited concentrated sweet intake Fall precaution Continue oxygen supplement Complete the course of the antibiotic with Doxycycline Pending Studies at Discharge: No Stand-Alone Forms: My [facility] [employer] Smoking Cessation Medications and DC Order Prescriptions: New isosorbide dinitrate 10 mg Tablet 10 mg PO TID@0700,1200,1700 30 Days Qty: 90 RF: 0 doxycycline hyclate 100 mg tablet 100 mg PO BID 2 Days Qty: 4 RF: 0 furosemide 40 mg tablet 60 mg PO BID17 30 Days Qty: 90 RF: 0 Continued sulfasalazine 500 mg Tablet 1,000 mg PO BID RF: 0 pravastatin [Pravachol] 40 mg Tablet 40 mg PO QPM RF: 0 Betahistine Hydrochloride 16 mg PO BID RF: 0 amlodipine 5 mg tablet 5 mg PO QAM RF: 0 oxybutynin chloride 5 mg tablet extended release 24hr 5 mg PO QAM RF: 0 carbidopa-levodopa 25-100 mg tablet 1 tab PO TIDM RF: 0 melatonin 10 mg Capsule 10 mg PO HS RF: 0 cyanocobalamin (vitamin B-12) [Vitamin B-12] 1,000 mcg Tablet 1,000 mcg PO QAM RF: 0 levothyroxine 125 mcg tablet 125 mcg PO QAM RF: 0 pregabalin [Lyrica] 200 mg capsule 200 mg PO BID Qty: 60 RF: 0 terazosin 5 mg capsule 5 mg PO HS RF: 0 ipratropium-albuterol 0.5 mg-3 mg(2.5 mg base)/3 mL solution for nebulization 3 ml INHALATION QID PRN (Reason: Congestion) RF: 0 venlafaxine 75 mg capsule,extended release 24hr 75 mg PO QAM RF: 0 potassium chloride 20 mEq tablet,ER particles/crystals 40 meq PO QAM RF: 0 bupropion HCl 75 mg tablet 75 mg PO Q12H RF: 0 pramipexole 0.25 mg tablet 0.25 mg PO QPM RF: 0 hydralazine 25 mg tablet 25 mg PO TID RF: 0 Discontinued furosemide 40 mg tablet 40 mg PO QPM RF: 0 metoprolol tartrate 25 mg tablet 25 mg PO BID RF: 0 Discharge Orders: Discharge Order (Routine); Ordered 08/20/19 Ordered By: Lilian Tran Admission Data Admit Date/Time: 08/15/19 21:25 Attending Provider: Lilian Tran Admit Provider: Rylan Stoll Primary Care Provider: Bella Power Other Providers: Natalya Martinez ; Alvarez Hyatt ; [facility] ; Geoffrey Washington Other Interventions: Discharge Summary Assessment (RN) Last Done: 08/20/19 15:26 DC Date/Time DO NOT enter until pt leaves facility: 08/20/19 17:11
== END 2019-08-20 17:11 | disposition home health service (06) | DRG 193 ==
LOC: ED 14:47 → SUATTDRO 21:25 → 2S 21:25

== ENCOUNTER 2019-09-21 12:09 | Inpatient (IN) ==
[2019-09-21] MEDS ORDERED: ALBUT/IPRATROP 3MG/0.5MG NEB 3 ML VIAL ONE (12:17)
[2019-09-21] MEDS ORDERED: ALBUT/IPRATROP 3MG/0.5MG NEB 3 ML VIAL INH STA (12:19)
[2019-09-21] MEDS ORDERED: methylPREDNISolone 125 MG/2 ML VIAL IV STA ×2 (12:19→12:50)
--- NOTE | 2019-09-21 12:31 | Emergency Department Note ---
Impression & Plan Sepsis with acute hypoxic respiratory failure, Multifocal pneumonia ED Provider Note NAME: CHESTER FRENCH AGE: 74 SEX: F : 1945 ARRIVES VIA: Ambulance INFORMANT: Patient, ED PROVIDER(S): Caleb Tam MD Chief Complaint: Shortness of breath, hypoxia HPI: History is limited secondary to the patient's clinical condition. History is gathered from prior visits as well as from EMS. The patient reportedly has had some worsening shortness of breath or lower oxygen saturations home health; saw the patient and called EMS. On room air the patient was in the 70s. They did place the patient on CPAP and were able to up titrate her into the mid 90s. Patient does have a history of COPD and heart failure. Patient did have a recent admission back in August with a subsequent negative COVID at that time. Patient does use a CPAP at home. Unknown is without that patient has had any chest pains. No recent reported trauma or travel. ROS: Unable to obtain secondary to clinical condition and wearing of CPAP mask. Past medical history: See below Surgical history: See below Social history: See below Physical Exam: GENERAL: Significant distress, CPAP in place. Slightly somnolent but is arousable. EYE EXAM: Normal conjunctiva. PERRL, no anisocoria. NECK: Supple, no nuchal rigidity, no adenopathy, non-tender. No signs of meningismus. Non-stridulous. LUNGS: Diffuse wheezes throughout. Tachypnea and shallow breaths noted. HEART: NSR, no MRG. ABDOMEN: Abdomen soft, non-tender, normo-active bowel sounds, no masses, no rebound or guarding. BACK: No CVA TTP. SKIN: No rashes and no bruising. UPPER EXTREMITIES: Upper extremities are grossly normal. LOWER EXTREMITIES: Grossly normal, no edema. NEURO EXAM: GCS of 14, opens eyes to voice follows basic commands, recently normal speech does move all extremities including moving her toes and squeezing both hands. Differential diagnoses: Reactive airway disease, pneumonia, pneumothorax, COPD, CHF, infections, cardiac ischemia, pulmonary embolism, musculoskeletal, gastrointestinal, as well as other pathologies. Course: Patient was seen and evaluated the bedside. Full history physical exam was performed. EKG: Indication: Shortness of breath Normal sinus rhythm, rate of 83, normal NE, wide QRS and prolonged QTC, left bundle branch block pattern, no significant change from August 15, 2019. Imaging Studies: Radiology results as stated below per my review in the radiologist's interpretation: Cardiac monitoring: An order was placed for continuous cardiac monitoring. The monitor shows a rate of 93 with sinus rhythm. MDM: Patient was seen in [facility] at the bedside as the patient was having significant respiratory distress. Further review of the most recent hospital discharge shows that the patient is reportedly nonambulatory and does use a powered wheelchair. The patient did have a subdural hematoma back in April and was subsequently discharged to [facility]. Patient had been discharged home on August 06, 2019. Patient report himanshu was having some low oxygen saturations at that time at the time of admission on 08/16/19. Coronavirus testing was done and was negative. Patient had a likely pneumonia with acute hypoxemic respiratory failure and was covered negative. Patient was transitioned to doxycycline at discharge. The patient also had concomitant decompensated diastolic heart failure for which she was given Lasix 60 twice daily. Patient has a baseline creatinine in the low to mid 2s. Patient was discharged within the week diagnosis of pneumonia and decompensated heart failure. Patient does have findings concerning for multifocal pneumonia. Cover testing was ordered. Patient was ordered very scant amount of IV fluids given the patient's elevated BNP and concern for possible volume overload given her prior history of diastolic heart failure. Patient was tolerating the BiPAP appropriately. The patient is not acidotic. Patient's ABG shows a normal CO2. Patient did have a detectable troponin but no EKG changes. This likely related to the patient's COPD and potentially concomitant sepsis. Patient was subsequently admitted to the medicine service. Critical Care: I have personally spent 80 minutes of critical care time in direct management of this patient. This includes bedside care, interpretation of diagnostic studies, and testing, discussion with consultants, patient, and family members, and other require inpatient management activities. This 80 minutes is in excess of all separately billable procedures. Past Med/Surg History Medical History Chronic diastolic heart failure CKD (chronic kidney disease), stage IV Depression Diabetes mellitus, type II Dyslipidemia Generalized anxiety disorder HTN (hypertension) Hypothyroidism RACHEL (iron deficiency anemia) Meniere's disease RENÉ on CPAP Parkinson disease Restless leg syndrome Rheumatoid arthritis Subdural hematoma (Inactive) Surgical History H/O sinus surgery History of carpal tunnel surgery History of orthopedic surgery (Resolved) " bilat heel surgery" History of tubal ligation Hx of total knee arthroplasty "Left, Dr. 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 Required: No Beliefs That Will Affect Care: None marital status: Current Living Situation: Spouse Other Information That Helps Us Care for You: No Feels Safe at Home: Yes Safety Concerns: Feels Safe At This Time Smoking Status: Former smoker Tobacco Type: cigarettes ; Cigarettes Per Day: 0.25ppd ; Second Hand Exposure: No ; Hx Alcohol Use: No Hx Substance Use: No Allergies Allergies Allergy/AdvReac Type Severity Reaction Status Date / Time No Known Allergies Allergy Verified 09/21/19 12:55 Home Meds Home Medications Medication Instructions Recorded Confirmed Betahistine Hydrochloride 16 mg PO BID 11/18/17 09/21/19 pravastatin [Pravachol] 40 mg PO HS 11/18/17 09/21/19 amlodipine 5 mg PO QAM 08/21/18 09/21/19 carbidopa-levodopa 1 tab PO TIDM 08/21/18 09/21/19 cyanocobalamin (vitamin B-12) 1,000 mcg PO QAM 08/21/18 09/21/19 [Vitamin B-12] levothyroxine 125 mcg PO QAM 08/21/18 09/21/19 melatonin 10 mg PO HS 08/21/18 09/21/19 hydralazine 25 mg PO TID 11/18/18 09/21/19 terazosin 5 mg PO 04/20/19 09/21/19 bupropion HCl 75 mg PO BID 08/15/19 09/21/19 potassium chloride 20 meq PO QAM 08/15/19 09/21/19 pramipexole 0.25 mg PO HS 08/15/19 09/21/19 venlafaxine 75 mg PO QAM 08/15/19 09/21/19 aspirin 81 mg PO DAILY 09/21/19 09/21/19 cholecalciferol (vitamin D3) 125 mcg PO DAILY 09/21/19 09/21/19 [Vitamin D3] iron,carbonyl-vitamin C [Vitron-C] 1 tab PO DAILY 09/21/19 09/21/19 isosorbide mononitrate 30 mg PO DAILY 09/21/19 09/21/19 meclizine 25 mg PO TID PRN 09/21/19 09/21/19 oxybutynin chloride 5 mg PO DAILY 09/21/19 09/21/19 Previous Rx's Medication Instructions Recorded pregabalin [Lyrica] 200 mg PO BID #60 cap 08/28/18 furosemide 60 mg PO BID17 30 Days #90 tab 08/20/19 Results & Data (ED) Vital Signs Vital Signs - 24 hr 09/21/19 12:19 09/21/19 12:25 09/21/19 12:27 Temperature 38.2 C H Temperature Source Rectal Pulse Rate 86 93 H Pulse Rate [Finger] Respiratory Rate 20 22 22 Respiratory Effort / Characteristics Labored Short of Breath Spontaneous Labored Spontaneous Labored Respiratory Depth Normal Respiratory Pattern Regular Blood Pressure 157/88 H Blood Pressure [Right Arm] Blood Pressure Mean 111 Blood Pressure Mean [Right Arm] Pulse Oximetry 100 99 99 Oxygen Delivery Method CPAP BiPAP Fraction of Inspired Oxygen 50 50 Sepsis Recent Fever Within 48 Hours Yes Sepsis New/Unexplained Change in Mental Status No Sepsis Action Taken by Nursing No Action Required 09/21/19 12:47 09/21/19 13:30 09/21/19 14:19 Temperature 37.0 C Temperature Source Rectal Pulse Rate Pulse Rate [Finger] 94 H 92 H Respiratory Rate 18 18 Respiratory Effort / Characteristics Respiratory Depth Respiratory Pattern Blood Pressure Blood Pressure [Right Arm] 145/73 H 147/71 H Blood Pressure Mean Blood Pressure Mean [Right Arm] 97 96 Pulse Oximetry 100 100 99 Oxygen Delivery Method CPAP BiPAP Fraction of Inspired Oxygen Sepsis Recent Fever Within 48 Hours Sepsis New/Unexplained Change in Mental Status Sepsis Action Taken by Nursing 09/21/19 14:31 09/21/19 14:59 Temperature Temperature Source Pulse Rate Pulse Rate [Finger] 96 H 85 Respiratory Rate 18 16 Respiratory Effort / Characteristics Respiratory Depth Normal Respiratory Pattern Blood Pressure Blood Pressure [Right Arm] 163/83 H 125/72 Blood Pressure Mean Blood Pressure Mean [Right Arm] 109 89 Pulse Oximetry 99 98 Oxygen Delivery Method BiPAP Room Air Fraction of Inspired Oxygen Sepsis Recent Fever Within 48 Hours Sepsis New/Unexplained Change in Mental Status Sepsis Action Taken by [facility] Medications Current Medication List: was personally reviewed by me Laboratory Data Attestation: I reviewed the patient's lab results. Result diagrams: 09/21/19 12:43 09/21/19 12:43 Lab Results 09/21/19 09/21/19 09/21/19 Range/Units 12:28 12:43 12:43 WBC 12.34 H (4.8-10.8) K/uL RBC 2.90 L (4.2-5.4) M/uL Hgb 8.2 L (12.0-16.0) g/dL Hct 26.8 L (37-47) % MCV 92.4 (80-100) fL MCH 28.3 (25-34) pg MCHC 30.6 L (32-36) g/dL RDW Std Deviation 49.1 H (36.4-46.3) fL RDW Coeff of Bhavin 14.3 (11.5-14.5) % Plt Count 206 (130-400) K/uL MPV 11.7 H (7.4-10.4) fL Immature Gran % (Auto) 0.6 % Neut % (Auto) 82.6 % Lymph % (Auto) 5.8 % [place] % (Auto) 9.8 % Eos % (Auto) 1.0 % Baso % (Auto) 0.2 % Neut # (Auto) 10.19 H (1.4-6.5) K/uL Lymph # (Auto) 0.71 L (1.2-3.4) K/uL [place] # (Auto) 1.21 H (0.11-0.59) K/uL Eos # (Auto) 0.12 (0-0.5) K/uL Baso # (Auto) 0.03 (0-0.2) K/uL Immature Gran # (Auto) 0.08 H (0.00-0.02) K/uL PT (9.0-12.0) Seconds INR (0.9-1.1) APTT (21.0-31.0) Seconds PTT Ratio ABG pH (7.35-7.45) ABG pCO2 (35-46) mmHg ABG pO2 (80-95) mmHg ABG HCO3 (19-24) mmol/L ABG O2 Saturation (90-95) % ABG Base Excess (-9-1.8) mEq/L Richard Test (Pos) Barometric Pressure mm/Hg Oxygen Given Sodium 148 H (136-145) mmol/L Potassium 4.0 (3.5-5.1) mmol/L Chloride 119 H (98-107) mmol/L Carbon Dioxide 21 (21-32) mmol/L Anion Gap 8.0 (3-11) BUN 70 H (7-18) mg/dl Creatinine 3.46 H (0.6-1.2) mg/dl Est Cr Clr Drug Dosing 18.1 ml/min Est GFR ( Amer) 14.4 Est GFR (Non-Af Amer) 12.5 BUN/Creatinine Ratio 20.3 H (10-20) Glucose 104 H (70-99) mg/dl Lactate (0.4-2.0) mmol/L Calcium 7.4 L (8.5-10.1) mg/dl Magnesium 2.1 (1.8-2.4) mg/dl Total Bilirubin 0.3 (0.2-1) mg/dl AST 13 L (15-37) U/L ALT 8 L (12-78) U/L Alkaline Phosphatase 96 (45-117) U/L Troponin I 0.398 H* (0-0.045) ng/ml NT-Pro-B Natriuret Pep 8154 H (0-900) pg/ml Total Protein 7.6 (6.4-8.2) gm/dl Albumin 3.1 L (3.4-5.0) gm/dl Globulin 4.5 H (2.5-4.0) gm/dl Albumin/Globulin Ratio 0.7 L (0.9-2) Urine Color Yellow Urine Appearance Turbid A (Clear) Urine pH (4.5-7.5) Ur Specific [place] 1.012 (1.000-1.030) Urine Protein (Negative) Urine Glucose (UA) (Negative) Urine Ketones (Negative) Urine Blood (Negative) Urine Nitrite (Negative) Urine Bilirubin (Negative) Urine Urobilinogen (Negative) Ur Leukocyte Esterase (Negative) Urine RBC >30 H (0-4) /hpf Urine WBC >30 H (0-5) /hpf Ur Epithelial Cells 5-10 H (0-5) /lpf Urine Bacteria 3+ H (Negative) Hyaline Casts 5-10 H (0-5) /lpf Urine Mucus Present A (None Prsent) COVID-19 PCR (Negative) 09/21/19 09/21/19 09/21/19 Range/Units 12:43 12:43 12:46 WBC (4.8-10.8) K/uL RBC (4.2-5.4) M/uL Hgb (12.0-16.0) g/dL Hct (37-47) % MCV (80-100) fL MCH (25-34) pg MCHC (32-36) g/dL RDW Std Deviation (36.4-46.3) fL RDW Coeff of Bhavin (11.5-14.5) % Plt Count (130-400) K/uL MPV (7.4-10.4) fL Immature Gran % (Auto) % Neut % (Auto) % Lymph % (Auto) % [place] % (Auto) % Eos % (Auto) % Baso % (Auto) % Neut # (Auto) (1.4-6.5) K/uL Lymph # (Auto) (1.2-3.4) K/uL [place] # (Auto) (0.11-0.59) K/uL Eos # (Auto) (0-0.5) K/uL Baso # (Auto) (0-0.2) K/uL Immature Gran # (Auto) (0.00-0.02) K/uL PT 10.4 (9.0-12.0) Seconds INR 1.0 (0.9-1.1) APTT 25.7 (21.0-31.0) Seconds PTT Ratio 0.9 ABG pH 7.32 L (7.35-7.45) ABG pCO2 43 (35-46) mmHg ABG pO2 266 H (80-95) mmHg ABG HCO3 22 (19-24) mmol/L ABG O2 Saturation 99.4 H (90-95) % ABG Base Excess -3.9 (-9-1.8) mEq/L Richard Test Pos (Pos) Barometric Pressure 733.7 mm/Hg Oxygen Given 50% Sodium (136-145) mmol/L Potassium (3.5-5.1) mmol/L Chloride (98-107) mmol/L Carbon Dioxide (21-32) mmol/L Anion Gap (3-11) BUN (7-18) mg/dl Creatinine (0.6-1.2) mg/dl Est Cr Clr Drug Dosing ml/min Est GFR ( Amer) Est GFR (Non-Af Amer) BUN/Creatinine Ratio (10-20) Glucose (70-99) mg/dl Lactate 0.4 (0.4-2.0) mmol/L Calcium (8.5-10.1) mg/dl Magnesium (1.8-2.4) mg/dl Total Bilirubin (0.2-1) mg/dl AST (15-37) U/L ALT (12-78) U/L Alkaline Phosphatase (45-117) U/L Troponin I (0-0.045) ng/ml NT-Pro-B Natriuret Pep (0-900) pg/ml Total Protein (6.4-8.2) gm/dl Albumin (3.4-5.0) gm/dl Globulin (2.5-4.0) gm/dl Albumin/Globulin Ratio (0.9-2) Urine Color Urine Appearance (Clear) Urine pH (4.5-7.5) Ur Specific [place] (1.000-1.030) Urine Protein (Negative) Urine Glucose (UA) (Negative) Urine Ketones (Negative) Urine Blood (Negative) Urine Nitrite (Negative) Urine Bilirubin (Negative) Urine Urobilinogen (Negative) Ur Leukocyte Esterase (Negative) Urine RBC (0-4) /hpf Urine WBC (0-5) /hpf Ur Epithelial Cells (0-5) /lpf Urine Bacteria (Negative) Hyaline Casts (0-5) /lpf Urine Mucus (None Prsent) COVID-19 PCR (Negative) 09/21/19 Range/Units 14:30 WBC (4.8-10.8) K/uL RBC (4.2-5.4) M/uL Hgb (12.0-16.0) g/dL Hct (37-47) % MCV (80-100) fL MCH (25-34) pg MCHC (32-36) g/dL RDW Std Deviation (36.4-46.3) fL RDW Coeff of Bhavin (11.5-14.5) % Plt Count (130-400) K/uL MPV (7.4-10.4) fL Immature Gran % (Auto) % Neut % (Auto) % Lymph % (Auto) % [place] % (Auto) % Eos % (Auto) % Baso % (Auto) % Neut # (Auto) (1.4-6.5) K/uL Lymph # (Auto) (1.2-3.4) K/uL [place] # (Auto) (0.11-0.59) K/uL Eos # (Auto) (0-0.5) K/uL Baso # (Auto) (0-0.2) K/uL Immature Gran # (Auto) (0.00-0.02) K/uL PT (9.0-12.0) Seconds INR (0.9-1.1) APTT (21.0-31.0) Seconds PTT Ratio ABG pH (7.35-7.45) ABG pCO2 (35-46) mmHg ABG pO2 (80-95) mmHg ABG HCO3 (19-24) mmol/L ABG O2 Saturation (90-95) % ABG Base Excess (-9-1.8) mEq/L Richard Test (Pos) Barometric Pressure mm/Hg Oxygen Given Sodium (136-145) mmol/L Potassium (3.5-5.1) mmol/L Chloride (98-107) mmol/L Carbon Dioxide (21-32) mmol/L Anion Gap (3-11) BUN (7-18) mg/dl Creatinine (0.6-1.2) mg/dl Est Cr Clr Drug Dosing ml/min Est GFR ( Amer) Est GFR (Non-Af Amer) BUN/Creatinine Ratio (10-20) Glucose (70-99) mg/dl Lactate (0.4-2.0) mmol/L Calcium (8.5-10.1) mg/dl Magnesium (1.8-2.4) mg/dl Total Bilirubin (0.2-1) mg/dl AST (15-37) U/L ALT (12-78) U/L Alkaline Phosphatase (45-117) U/L Troponin I (0-0.045) ng/ml NT-Pro-B Natriuret Pep (0-900) pg/ml Total Protein (6.4-8.2) gm/dl Albumin (3.4-5.0) gm/dl Globulin (2.5-4.0) gm/dl Albumin/Globulin Ratio (0.9-2) Urine Color Urine Appearance (Clear) Urine pH (4.5-7.5) Ur Specific [place] (1.000-1.030) Urine Protein (Negative) Urine Glucose (UA) (Negative) Urine Ketones (Negative) Urine Blood (Negative) Urine Nitrite (Negative) Urine Bilirubin (Negative) Urine Urobilinogen (Negative) Ur Leukocyte Esterase (Negative) Urine RBC (0-4) /hpf Urine WBC (0-5) /hpf Ur Epithelial Cells (0-5) /lpf Urine Bacteria (Negative) Hyaline Casts (0-5) /lpf Urine Mucus (None Prsent) COVID-19 PCR NEGATIVE (Negative) Administered Medications Parenteral Electrolytes (Normosol-R) 1,000 mls @ 80 mls/hr IV .[id number] COUNTS INCLUDE 234 BEDS AT THE [facility] Stop: 10/21/19 17:59 Last Admin: 09/21/19 18:06 Dose: 80 mls/hr Documented by: [id number] Discontinued Medications Albuterol (Duoneb) Confirm Administered Dose 12 ml .ROUTE .STK-MED ONE Stop: 09/21/19 12:18 Last Admin: 09/21/19 15:04 Dose: Not Given Documented by: [id number] Albuterol (Duoneb) 12 ml INH ONE STA Stop: 09/21/19 12:20 Last Admin: 09/21/19 12:24 Dose: 12 ml Documented by: [id number] Magnesium Sulfate/Dextrose (Magnesium Sulfate / D5w) 1 gm in 100 mls @ 600 mls/hr IV Q10M [facility] Stop: 09/21/19 12:41 Last Infusion: 09/21/19 14:36 Dose: 0 mls/hr Documented by: [id number] Admin: 09/21/19 13:48 Dose: 200 mls/hr Documented by: [id number] Infusion: 09/21/19 13:47 Dose: 0 mls/hr Documented by: [id number] Admin: 09/21/19 12:47 Dose: 600 mls/hr Documented by: [id number] Vancomycin HCl 2,000 mg/ (Sodium Chloride) 540 mls @ 200 mls/hr IV NOW ONE Stop: 09/21/19 15:23 Last Infusion: 09/21/19 16:20 Dose: 0 mls/hr Documented by: [id number] Admin: 09/21/19 13:47 Dose: 200 mls/hr Documented by: [id number] Cefepime HCl (Maxipime) 2,000 mg in 20 mls @ 5 mls/min IV NOW STA; Protocol Stop: 09/21/19 12:47 Last Admin: 09/21/19 12:49 Dose: 5 mls/min Documented by: [id number] Acetaminophen (Ofirmev) 65 mls @ 200 mls/hr IV NOW ONE; Protocol Stop: 09/21/19 13:51 Last Admin: 09/21/19 17:49 Dose: Not Given Documented by: [id number] Sodium Chloride (Nss 1000ml) 250 mls @ 999 mls/hr IV .Q16M ONE Stop: 09/21/19 13:47 Last Infusion: 09/21/19 14:36 Dose: 0 mls/hr Documented by: [id number] Admin: 09/21/19 14:12 Dose: 999 mls/hr Documented by: [id number] Calcium Gluconate 2,000 mg/ (Sodium Chloride) 70 mls @ 280 mls/hr IV NOW STA Stop: 09/21/19 13:57 Last Infusion: 09/21/19 14:27 Dose: 0 mls/hr Documented by: [id number] Admin: 09/21/19 14:12 Dose: 280 mls/hr Documented by: [id number] Acetaminophen (irmev) 1,000 mg in 100 mls @ 200 mls/hr IV NOW ONE; Protocol Stop: 09/21/19 14:19 Last Infusion: 09/21/19 15:03 Dose: 0 mls/hr Documented by: [id number] Admin: 09/21/19 14:32 Dose: 200 mls/hr Documented by: [id number] Levofloxacin/Dextrose (Levaquin/D5w) 750 mg in 150 mls @ 100 mls/hr IV Q24H COUNTS INCLUDE 234 BEDS AT THE [facility] Stop: 09/28/19 13:59 Last Infusion: 09/21/19 15:56 Dose: 0 mls/hr Documented by: [id number] Admin: 09/21/19 14:20 Dose: 100 mls/hr Documented by: [id number] Methylprednisolone (Solumedrol) 6 mg IV NOW STA Stop: 09/21/19 12:20 Last Admin: 09/21/19 12:47 Dose: 6 mg Documented by: [id number] Methylprednisolone (Solumedrol) 60 mg IV NOW STA Stop: 09/21/19 12:51 Last Admin: 09/21/19 14:12 Dose: 60 mg Documented by: [id number] Discharge Plan Visit Data *Final* Discharge Date/Time: 09/21/19 16:22 Chief Complaint: Shortness of Breath/Dyspnea Stated Complaint: SOB ED Provider: Caleb Tam Discharge Problem: Sepsis with acute hypoxic respiratory failure, Multifocal pneumonia Patient Disposition: Admitted As Inpatient Discharge Instructions Interventions: ED Discharge Assessment Last Done: 09/21/19 16:22 Discharge Problem: Sepsis with acute hypoxic respiratory failure Qualifiers: Sepsis type: sepsis due to unspecified organism Severe sepsis shock status: without septic shock Qualified Code(s): A41.9 - Sepsis, unspecified organism
[2019-09-21] MEDS ORDERED: VANCOMYCIN HCL 2,000 MG in SODIUM CHLORIDE 0.9% 500 ML IV ONE (12:42)
[2019-09-21] MEDS ORDERED: VANCOMYCIN CONSULT ACTIVE PRN (12:42)
[2019-09-21] MEDS ORDERED: CEFEPIME 2,000 MG/20 ML VIAL IV STA (12:44)
[2019-09-21] MEDS: MAGNESIUM SULFATE / D5W 1 GM/100 ML BAG IV SCH ×2 (12:47→13:48)
[2019-09-21 12:56] LABS: Base Excess ABG -3.9 mEq/L (-9-1.8); HCO3 ABG 22 mmol/L (19-24); Oxygen Saturation ABG 99.4 % (90-95); PCO2 ABG 43 mmHg (35-46); PO2 ABG 266 mmHg (80-95); pH ABG 7.32 (7.35-7.45)
[2019-09-21 12:57] LABS: Allen Test Pos (Pos)
[2019-09-21 13:03] LABS: Basophils # (auto) 0.03 K/uL (0-0.2); Basophils % (auto) 0.2 %; Eosinophils # (auto) 0.12 K/uL (0-0.5); Hematocrit (blood only) 26.8 % (37-47); Hemoglobin 8.2 g/dL (12.0-16.0); Immature Granulocytes # (auto) 0.08 K/uL (0.00-0.02); Immature Granulocytes % (auto) 0.6 %; Lymphocytes # (auto) 0.71 K/uL (1.2-3.4); Lymphocytes % (auto) 5.8 %; Mean Corpuscular Hemoglobin 28.3 pg (25-34); Mean Corpuscular Hgb Conc 30.6 g/dL (32-36); Mean Corpuscular Volume 92.4 fL (80-100); Mean Platelet Volume 11.7 fL (7.4-10.4); Monocytes # (auto) 1.21 K/uL (0.11-0.59); Monocytes % (auto) 9.8 %; Neutrophils # (auto) 10.19 K/uL (1.4-6.5); Neutrophils % (auto) 82.6 %; Platelet Count 206 K/uL (130-400); RDW Coefficient of Variation 14.3 % (11.5-14.5); RDW Standard Deviation 49.1 fL (36.4-46.3); White Blood Count 12.34 K/uL (4.8-10.8)
[2019-09-21 13:07] LABS: Partial Thromboplastin Ratio 0.9; Partial Thromboplastin Time 25.7 Seconds (21.0-31.0); Prothrombin Time 10.4 Seconds (9.0-12.0)
[2019-09-21 13:12] LABS: Albumin Level 3.1 gm/dl (3.4-5.0); BUN Creatinine Ratio 20.3 (10-20); Calcium 7.4 mg/dl (8.5-10.1); Creatinine Clr Calc Pharmacy 18.1 ml/min; Est GFR (African American) 14.4; Est GFR (Non-African American) 12.5; Magnesium 2.1 mg/dl (1.8-2.4)
--- NOTE | 2019-09-21 13:13 | XRay Report ---
XR chest 1V portable HISTORY: 74 years-old Female Dyspnea acute shortness of breath COMPARISON: Chest radiograph 08/17/2019 TECHNIQUE: Portable AP view of the chest FINDINGS: Patchy multifocal left greater than right alveolar opacities are new from comparison. Mild background interstitial coarsening. Cardiomegaly. No pneumothorax. Probable trace pleural effusions. Degenerati ve changes of the shoulders and spine. IMPRESSION: 1. Left greater than right alveolar opacities are suggestive of multifocal pneumonia with asymmetric pulmonary edema considered less likely. 2. Cardiomegaly. 3. Trace pleural effusions. ACT 112: Negative or not required by law. The above report was generated using voice recognition software. It may contain grammatical, syntax o r spelling errors. Electronically signed by: Arnoldo Stiles M.D. 09/21/2019 1:12 PM
[2019-09-21 13:29] LABS: Albumin Globulin Ratio 0.7 (0.9-2); Bilirubin,Total 0.3 mg/dl (0.2-1); Globulin 4.5 gm/dl (2.5-4.0); Total Protein 7.6 gm/dl (6.4-8.2); Troponin I 0.398 ng/ml (0-0.045)
[2019-09-21] MEDS ORDERED: SODIUM CHLORIDE 0.9% 1000ML 250 ML IV ONE (13:32)
[2019-09-21] MEDS ORDERED: ACETAMINOPHEN 65 ML IV ONE (13:32)
[2019-09-21] MEDS ORDERED: CALCIUM GLUCONATE 10% 10 ML VIAL IV STA (13:32)
[2019-09-21] MEDS ORDERED: CALCIUM GLUCONATE 10% 2,000 MG in SODIUM CHLORIDE 0.9% 50 ML IV STA (13:43)
[2019-09-21] MEDS ORDERED: ACETAMINOPHEN 1,000 MG/100 ML VIAL IV ONE ×2 (13:50→14:00)
[2019-09-21] MEDS ORDERED: LEVOFLOXACIN/D5W 750 MG/150 ML BAG IV SCH (14:00)
--- NOTE | 2019-09-21 15:31 | History & Physical Report ---
Date of Service September 21, 2019 Assessment & Plan (1) Sepsis: Meets SIRS criteria and pneumonia seen on CXR. Possible additional urinary source of infection-studies pending. COVID negative. Cont broad spectrum abx per ICU. No further fluid resuscitation is recommended with her h/o HF, and her improvement with treatment given in the ER. (2) Acute respiratory failure: She appears to have pneumonia, however, also suffers from COPD, RENÉ/OHV on CPAP with nocturnal hypoxemia on 2LPM oxygen, and morbid obesity. She was also recently admitted to the hospital one month ago with pneumonia. She is a non smoker currently and COVID is negative. She is working to breathe on the BIPAP. Will need to reassess her blood gas in 2 hours, and defer to ICU team if mechanical ventilation will be needed. (3) Pneumonia: Cont broad spectrum abx per ICU team. Cont respiratory support. (4) UTI (urinary tract infection): Should be covered empirically with abx above pending further lab studies. Kirby in place. (5) Elevated troponin: Likely related to demand ischemia in setting of sepsis, however, would trend troponins. (6) Parkinson disease: Hold home Sinemet (7) Rheumatoid arthritis: was previously on sulfasalazine, but this was stopped in July 2019 secondary to worsening kidney function. RA affects her hands and she takes APAP as needed per her . (8) DM type 2 (diabetes mellitus, type 2): A1c was 5.1 in Mar 2019. She is diet controlled. (9) Chronic diastolic heart failure: Preserved EF historically. Takes Lasix BID and follows with Dr. Diop. (10) CKD (chronic kidney disease), stage IV: Progressed. Recently established care with Nephro as outpatient. Avoid nephrotoxic agents and renally dose meds as needed. (11) Hypertension: she is currently at goal. Takes amlodipine 5mg daily, hydralazine 25 mg TID, lasix 60 BID and terazosin at home. Currently held. (12) Anemia: Likely multifactorial etiology including ACD, anemia of CKD and iron deficiency. She is slightly lower today than her baseline of 9.5/30. Cont to monitor. (13) LBBB (left bundle branch block): chronic and present on EKG today. (14) Morbid obesity: (15) DVT prophylaxis: SCDs, chemoprophylaxis recommended, however, defer to Bioinformatician. Full Code per my discussion with her Dispo- to ICU Margo Guillen, [facility] Hospitalist History of Present Illness Chief Complaint: fatigue, SOB Primary Care Provider: Bella Rubio MD The patient is a 74-year-old female with diabetes, hypothyroidism, RENÉ on CPAP, COPD, heart failure with preserved ejection fraction, hypertensive heart disease with chronic diastolic congestive heart failure, hypertension, GUZMÁN, morbid obesity, restless leg syndrome, parkinsonism, Mnire's disease who presents in acute respiratory failure. She was recently admitted for 5 days 1 month ago for pneumonia. Since that time at home reports she has been doing well and ambulating and mentating at baseline. At baseline she ambulates with a walker and maximum assistance. She has physical and occupational therapist that come to her home as well as a [facility] nurse. Over the past 2 days her reports she was somnolent and falling asleep in her wheelchair slumped over. She had remained somnolent without any coughing fevers or obvious chills during that time. He was able to get medications into her yesterday but reports that overnight around 3:00 he woke up to find her CPAP mask was off her face and her oxygen saturation was 77%. He placed her CPAP mask back on and held it in place until approximately 9:00. During this time we continue to titrate up her supplemental oxygen and noticed her oxygen saturation continued to decline despite this. He called the [facility] nurse who came and assessed the patient, and recommended EMS transport to the hospital. Temperature was noted to be mildly elevated at 100.9 degrees F. Upon arrival work-up included a chest x-ray revealing multifocal pneumonia. COVID test is pending. 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 states she has had no medications today as it was unsafe for her to swallow given her somnolence. He otherwise denies any other overt symptoms and the patient is obtunded, in respiratory distress on BiPAP, and subsequently unable to give a history. Recent medication changes per included the addition of Imdur 30 mg daily, will try and see in vitamin D3 daily. Upon prior discharge, Lasix was also increased slightly. Other notable history includes a fall with intracranial head trauma in early April 2019 requiring transfer to [facility]. Per report she was monitored without any neurosurgical intervention. She was subsequently discharged to [facility] for rehab and then was sent home. Since that time she has been virtually bedbound but is able to stand and pivot with max assist. She is on nocturnal oxygen at 2 L/min through her CPAP. She is a prior smoker who quit 15 years ago with a [id number] history. She does not use alcohol per 's report. she also has had a progressive decline in renal function, which is felt to be due to diuretic burden vs. underling childhood renal disease vs. possible IgA nephropathy per Dr. Tobar ([facility]). Allergies Allergy/AdvReac Type Severity Reaction Status Date / Time No Known Allergies Allergy Verified 09/21/19 12:55 Home Medications Home Medications Medication Instructions Recorded Confirmed Type Betahistine Hydrochloride 16 mg PO BID 11/18/17 09/21/19 History pravastatin [Pravachol] 40 mg PO HS 11/18/17 09/21/19 History amlodipine 5 mg PO QAM 08/21/18 09/21/19 History carbidopa-levodopa 1 tab PO TIDM 08/21/18 09/21/19 History cyanocobalamin (vitamin B-12) 1,000 mcg PO QAM 08/21/18 09/21/19 History [Vitamin B-12] levothyroxine 125 mcg PO QAM 08/21/18 09/21/19 History melatonin 10 mg PO HS 08/21/18 09/21/19 History pregabalin [Lyrica] 200 mg PO BID #60 cap 08/28/18 09/21/19 Rx hydralazine 25 mg PO TID 11/18/18 09/21/19 History terazosin 5 mg PO HS 04/20/19 09/21/19 History bupropion HCl 75 mg PO BID 08/15/19 09/21/19 History potassium chloride 20 meq PO QAM 08/15/19 09/21/19 History pramipexole 0.25 mg PO HS 08/15/19 09/21/19 History venlafaxine 75 mg PO QAM 08/15/19 09/21/19 History furosemide 60 mg PO BID17 30 Days #90 tab 08/20/19 09/21/19 Rx aspirin 81 mg PO DAILY 09/21/19 09/21/19 History cholecalciferol (vitamin D3) 125 mcg PO DAILY 09/21/19 09/21/19 History [Vitamin D3] iron,carbonyl-vitamin C [Vitron-C] 1 tab PO DAILY 09/21/19 09/21/19 History isosorbide mononitrate 30 mg PO DAILY 09/21/19 09/21/19 History meclizine 25 mg PO TID PRN 09/21/19 09/21/19 History oxybutynin chloride 5 mg PO DAILY 09/21/19 09/21/19 History Past Med/Surg History Medical History Chronic diastolic heart failure CKD (chronic kidney disease), stage IV Depression Diabetes mellitus, type II Dyslipidemia Generalized anxiety disorder HTN (hypertension) Hypothyroidism RACHEL (iron deficiency anemia) Meniere's disease RENÉ on CPAP Parkinson disease Restless leg syndrome Rheumatoid arthritis Subdural hematoma (Inactive) Surgical History H/O sinus surgery History of carpal tunnel surgery History of orthopedic surgery (Resolved) " bilat heel surgery" History of tubal ligation Hx of total knee arthroplasty "Left, Dr. 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 EYES: unable to assess EOM, PERRL, normal conjunctivae, no scleral icterus ENT: external ear and nose normal, oral mucosa is dry NECK: trachea midline RESPIRATORY: clear to auscultation bilaterally with scant wheezing in upper right lung, increased respiratory effort as above CARDIOVASCULAR: regular rate and rhythm, S1 and 2 heard without murmurs, gallops or rubs, no JVD, no peripheral edema, no hepatojugular reflux GASTROINTESTINAL: soft, nontender, nondistended, protuberant, no guarding with palpation. MUSCULOSKELETAL: head is normocephalic and atraumatic, somnolent. SKIN: warm and dry NEUROLOGIC: No facial palsy, somnolent so difficult to assess. PSYCHIATRIC: Somnolent and uncooperative to instruction. Withdraws to painful stimulus. Results & Data Results & Data ([facility]) Vital Signs (Past 12 Hours) Vital Signs Temp Pulse Pulse Resp BP BP Pulse Ox 09/21/19 14:59 85 16 125/72 98 09/21/19 14:31 96 H 18 163/83 H 99 09/21/19 14:19 92 H 18 147/71 H 99 09/21/19 13:30 37.0 C 94 H 18 145/73 H 100 09/21/19 12:47 100 09/21/19 12:27 22 99 09/21/19 12:25 93 H 22 99 09/21/19 12:19 38.2 C H 86 20 157/88 H 100 Laboratory Results Short CBC 09/21/19 Range/Units 12:43 WBC 12.34 H (4.8-10.8) K/uL Hgb 8.2 L (12.0-16.0) g/dL Hct 26.8 L (37-47) % Plt Count 206 (130-400) K/uL BMP 09/21/19 12:43 Sodium 148 H Potassium 4.0 Chloride 119 H Carbon Dioxide 21 BUN 70 H Creatinine 3.46 H Glucose 104 H Calcium 7.4 L Cardiac Enzymes 09/21/19 Range/Units 12:43 Troponin I 0.398 H* (0-0.045) ng/ml Liver Function 09/21/19 Range/Units 12:43 Total Bilirubin 0.3 (0.2-1) mg/dl AST 13 L (15-37) U/L ALT 8 L (12-78) U/L Alkaline Phosphatase 96 (45-117) U/L Albumin 3.1 L (3.4-5.0) gm/dl Diagnostic Findings XR chest 1V portable HISTORY: 74 years-old Female Dyspnea acute shortness of breath COMPARISON: Chest radiograph 08/17/2019 TECHNIQUE: Portable AP view of the chest FINDINGS: Patchy multifocal left greater than right alveolar opacities are new from comparison. Mild background interstitial coarsening. Cardiomegaly. No pneumothorax. Probable trace pleural effusions. Degenerative changes of the shoulders and spine. IMPRESSION: 1. Left greater than right alveolar opacities are suggestive of multifocal pneumonia with asymmetric pulmonary edema considered less likely. 2. Cardiomegaly. 3. Trace pleural effusions. Medications Administered Cefepime2 gm IV Vanc 2gm IV Levaquin 750 mg IV NSS 500cc IV Tylenol 1000 IV Albuterol 1 hr NEB (12 ML) Solumedrol 66mg IV Ca gluc 2gm IV Mg SO4 2gm IV Code Status & VTE Plan Code Status FULL CODE VTE Prophylaxis Plan VTE Prophylaxis will be ordered: Yes (1) Hypertension Hypertension type: essential hypertension Qualified Code(s): I10 - Essential (primary) hypertension
[2019-09-21 16:22] LABS: Appearance Urine Turbid (Clear); Color Urine Yellow; Ictotest Urine Negative (Negative); Specific Gravity Urine 1.012 (1.000-1.030); Sulfosalicylic Acid Urine Positive (Negative)
[2019-09-21 16:31] LABS: Bacteria Urine 3+ (Negative); Mucus Urine Present (None Prsent); RBC Urine >30 /hpf (0-4); WBC Urine >30 /hpf (0-5)
[2019-09-21] MEDS ORDERED: ICU PROTOCOL FOR HYPERGLYCEMIA PRN (16:41)
--- NOTE | 2019-09-21 16:51 | Critical Care Consultation ---
Date of Consultation September 21, 2019 Assessment & Plan (1) Acute hypoxemic respiratory failure: Reason Critically Ill: 74-year-old female with acute hypoxemic respiratory failure and acute kidney injury PLAN: Neuro: Acute encephalopathy -Likely multifactorial: Metabolic infectious Resp: Acute hypoxic respiratory failure secondary to multifocal pneumonia -Bio fire panel pending, COVID negative Obstructive sleep apnea on CPAP therapy -Continue CPAP 10/5 at 40% saturating adequately CV: Coronary artery disease Left bundle branch block, no change from previous EKGs Elevated troponins, suspect demand versus acute kidney injury: Normal blood pressure -Reviewed 08/16/2019 echo: Moderate left ventricular concentric hypertrophy septal wall motion consistent with conduction abnormality borderline global hypokinesis of left ventricle EF 50 to 55% with grade 1 diastolic dysfunction Fluids/Renal: Acute kidney injury on stage IV chronic kidney disease -Hydration and trending of BMP -May need to consider renal replacement therapy if we have to contend with volume overload versus acid-base disorder Hypernatremia secondary to dehydration Hematuria: Secondary to dehydration versus infectious related Urinary tract infection ID: Urinary tract infection Probable pneumonia Blood cultures pending -Broad-spectrum antibiotics: Vancomycin, cefepime, Levaquin ordered by primary team GI/Nutrition: N.p.o. History nonalcoholic steatohepatitis Morbid obesity: BMI 41 Heme: Anemia: Multifactorial: Kidney disease and iron deficiency DVT prophylaxis: Heparin 7500 3 times daily given morbid obesity: BMI 41 Endocrine: ICU hyperglycemia protocol Hemoglobin A1c 4.3 in August 16, 2019 Rheumatoid arthritis -No steroids on home medication list -We will continue steroids for presumptive community-acquire d pneumonia dosing Vascular access: Peripheral IVs Code Status: Full code Disposition: ICU Present on Admission?: Yes (2) Anemia: Present on Admission?: Yes (3) Morbid obesity: Present on Admission?: Yes (4) Metabolic acidosis: Present on Admission?: Yes (5) Hypernatremia: Present on Admission?: Yes (6) Hyperchloremic metabolic acidosis: Present on Admission?: Yes (7) SAM (acute kidney injury): Present on Admission?: Yes (8) Hematuria: Present on Admission?: Yes (9) Dehydration with hypernatremia: Present on Admission?: Yes (10) UTI (urinary tract infection): Present on Admission?: Yes (11) Sepsis: Present on Admission?: Yes (12) Rheumatoid arthritis: Present on Admission?: Yes (13) CKD (chronic kidney disease), stage IV: Present on Admission?: Yes (14) RACHEL (iron deficiency anemia): Present on Admission?: Yes (15) RENÉ on CPAP: Present on Admission?: Yes (16) DM type 2 (diabetes mellitus, type 2): Present on Admission?: Yes (17) LBBB (left bundle branch block): Present on Admission?: Yes (18) Elevated troponin: Present on Admission?: Yes (19) Elevated brain natriuretic peptide (BNP) level: Present on Admission?: Yes History of Present Illness Reason for Consultation: Acute hypoxic respiratory failure Requesting Physician: Wilmer MAS Attending Physician: Margo Guillen DO History of Present Illness History is obtained largely through discussion with workday consultant and prior records given that the patient has acute encephalopathy. Patient is a 74-year-old female with a plethora of medical illnesses including: Diabetes, hypothyroidism, obstructive sleep apnea on CPAP therapy, COPD, heart failure with preserved ejection fraction, hypertensive heart disease with chronic diastolic congestive heart failure, hypertension, nonalcoholic steatohepatitis, morbid obesity, restless leg syndrome, parkinsonism, Mnire's disease. She presented today in respiratory distress, she was recently admitted approximately 1 month ago for pneumonia. She lives at home with a who reported to staff she had been doing well ambulating and mentating at her baseline. Baseline she ambulates with a walker and maximum assistance. She has been seen by physical and occupational therapist to come to the home as well as [facility] nurse. Over the past 2 days she become more somnolent falling asleep in a wheelchair. Overnight around 3:00 the patient's woke to find the patient's CPAP mask off and her oxygen saturation in 77%. The patient's was increasing her supplemental oxygen however he noticed that her oxygen saturation continued decline. She was seen by the [facility] nurse who recommended evaluation at the hospital. Chest x-ray findings in the ED revealed a multifocal pneumonia, COVID testing is negative as she has multiple family visitors as well as medical technologist generalist in her home. She did not take any medications today. Patient had a recent fall with intracranial bleeding in early April 2019. Allergies Allergy/AdvReac Type Severity Reaction Status Date / Time No Known Allergies Allergy Verified 09/21/19 12:55 Home Medications Home Medications Medication Instructions Recorded Confirmed Type Betahistine Hydrochloride 16 mg PO BID 11/18/17 09/21/19 History pravastatin [Pravachol] 40 mg PO HS 11/18/17 09/21/19 History amlodipine 5 mg PO QAM 08/21/18 09/21/19 History carbidopa-levodopa 1 tab PO TIDM 08/21/18 09/21/19 History cyanocobalamin (vitamin B-12) 1,000 mcg PO QAM 08/21/18 09/21/19 History [Vitamin B-12] levothyroxine 125 mcg PO QAM 08/21/18 09/21/19 History melatonin 10 mg PO HS 08/21/18 09/21/19 History pregabalin [Lyrica] 200 mg PO BID #60 cap 08/28/18 09/21/19 Rx hydralazine 25 mg PO TID 11/18/18 09/21/19 History terazosin 5 mg PO HS 04/20/19 09/21/19 History bupropion HCl 75 mg PO BID 08/15/19 09/21/19 History potassium chloride 20 meq PO QAM 08/15/19 09/21/19 History pramipexole 0.25 mg PO HS 08/15/19 09/21/19 History venlafaxine 75 mg PO QAM 08/15/19 09/21/19 History furosemide 60 mg PO BID17 30 Days #90 tab 08/20/19 09/21/19 Rx aspirin 81 mg PO DAILY 09/21/19 09/21/19 History cholecalciferol (vitamin D3) 125 mcg PO DAILY 09/21/19 09/21/19 History [Vitamin D3] iron,carbonyl-vitamin C [Vitron-C] 1 tab PO DAILY 09/21/19 09/21/19 History isosorbide mononitrate 30 mg PO DAILY 09/21/19 09/21/19 History meclizine 25 mg PO TID PRN 09/21/19 09/21/19 History oxybutynin chloride 5 mg PO DAILY 09/21/19 09/21/19 History Patient History Medical History Chronic diastolic heart failure CKD (chronic kidney disease), stage IV Depression Diabetes mellitus, type II Dyslipidemia Generalized anxiety disorder HTN (hypertension) Hypothyroidism RACHEL (iron deficiency anemia) Meniere's disease RENÉ on CPAP Parkinson disease Restless leg syndrome Rheumatoid arthritis Subdural hematoma (Inactive) Surgical History H/O sinus surgery History of carpal tunnel surgery History of orthopedic surgery (Resolved) " bilat heel surgery" History of tubal ligation Hx of total knee arthroplasty "Left, Dr. Del Real" Family History Other AAA (abdominal aortic aneurysm) Diabetes Family history non-contributory Hypertension Myotonic dystrophy Social History Preferred Language: Indonesian Communication Ability: Effective Patient Educator Required: No Beliefs That Will Affect Care: None marital status: Current Living Situation: Spouse Other Information That Helps Us Care for You: No Feels Safe at Home: Yes Safety Concerns: Feels Safe At This Time Smoking Status: Former smoker Tobacco Type: cigarettes ; Cigarettes Per Day: 0.25ppd ; Second Hand Exposure: No ; Hx Alcohol Use: No Hx Substance Use: No Review of Systems Review of Systems: Unobtainable due to reduced consciousness Physical Exam Physical Exam: General: Somnolent elderly female. Skin: Warm, dry, Head: Atraumatic Ears, nose, mouth and throat: Wearing BiPAP mask Cardiovascular: Normal peripheral perfusion Respiratory: no respiratory distress, coarse sounds bilaterally Gastrointestinal: Non distended Musculoskeletal: No deformity Results & Data Results & Data ([facility]) Vital Signs (Past 12 Hours) Vital Signs Temp Pulse Pulse Resp BP BP Pulse Ox 09/21/19 16:34 85 20 98 09/21/19 16:20 72 16 126/57 L 99 09/21/19 15:47 78 18 119/72 99 09/21/19 14:59 85 16 125/72 98 09/21/19 14:31 96 H 18 163/83 H 99 09/21/19 14:19 92 H 18 147/71 H 99 09/21/19 13:30 37.0 C 94 H 18 145/73 H 100 09/21/19 12:47 100 09/21/19 12:27 22 99 09/21/19 12:25 93 H 22 99 09/21/19 12:19 38.2 C H 86 20 157/88 H 100 Laboratory Results 09/21/19 09/21/19 09/21/19 Range/Units 14:30 12:46 12:43 WBC (4.8-10.8) K/uL RBC (4.2-5.4) M/uL Hgb (12.0-16.0) g/dL Hct (37-47) % MCV (80-100) fL MCH (25-34) pg MCHC (32-36) g/dL RDW Std Deviation (36.4-46.3) fL RDW Coeff of Bhavin (11.5-14.5) % Plt Count (130-400) K/uL MPV (7.4-10.4) fL Immature Gran % (Auto) % Neut % (Auto) % Lymph % (Auto) % [place] % (Auto) % Eos % (Auto) % Baso % (Auto) % Neut # (Auto) (1.4-6.5) K/uL Lymph # (Auto) (1.2-3.4) K/uL [place] # (Auto) (0.11-0.59) K/uL Eos # (Auto) (0-0.5) K/uL Baso # (Auto) (0-0.2) K/uL Immature Gran # (Auto) (0.00-0.02) K/uL PT (9.0-12.0) Seconds INR (0.9-1.1) APTT (21.0-31.0) Seconds PTT Ratio ABG pH 7.32 L (7.35-7.45) ABG pCO2 43 (35-46) mmHg ABG pO2 266 H (80-95) mmHg ABG HCO3 22 (19-24) mmol/L ABG O2 Saturation 99.4 H (90-95) % ABG Base Excess -3.9 (-9-1.8) mEq/L Richard Test Pos (Pos) Barometric Pressure 733.7 mm/Hg Oxygen Given 50% Sodium (136-145) mmol/L Potassium (3.5-5.1) mmol/L Chloride (98-107) mmol/L Carbon Dioxide (21-32) mmol/L Anion Gap (3-11) BUN (7-18) mg/dl Creatinine (0.6-1.2) mg/dl Est Cr Clr Drug Dosing ml/min Est GFR ( Amer) Est GFR (Non-Af Amer) BUN/Creatinine Ratio (10-20) Glucose (70-99) mg/dl Lactate 0.4 (0.4-2.0) mmol/L Calcium (8.5-10.1) mg/dl Magnesium (1.8-2.4) mg/dl Total Bilirubin (0.2-1) mg/dl AST (15-37) U/L ALT (12-78) U/L Alkaline Phosphatase (45-117) U/L Troponin I (0-0.045) ng/ml NT-Pro-B Natriuret Pep (0-900) pg/ml Total Protein (6.4-8.2) gm/dl Albumin (3.4-5.0) gm/dl Globulin (2.5-4.0) gm/dl Albumin/Globulin Ratio (0.9-2) Urine Color Urine Appearance (Clear) Urine pH (4.5-7.5) Ur Specific [place] (1.000-1.030) Urine Protein (Negative) Urine Glucose (UA) (Negative) Urine Ketones (Negative) Urine Blood (Negative) Urine Nitrite (Negative) Urine Bilirubin (Negative) Urine Urobilinogen (Negative) Ur Leukocyte Esterase (Negative) Urine RBC (0-4) /hpf Urine WBC (0-5) /hpf Ur Epithelial Cells (0-5) /lpf Urine Bacteria (Negative) Hyaline Casts (0-5) /lpf Urine Mucus (None Prsent) COVID-19 PCR NEGATIVE (Negative) 09/21/19 09/21/19 09/21/19 Range/Units 12:43 12:43 12:43 WBC 12.34 H (4.8-10.8) K/uL RBC 2.90 L (4.2-5.4) M/uL Hgb 8.2 L (12.0-16.0) g/dL Hct 26.8 L (37-47) % MCV 92.4 (80-100) fL MCH 28.3 (25-34) pg MCHC 30.6 L (32-36) g/dL RDW Std Deviation 49.1 H (36.4-46.3) fL RDW Coeff of Bhavin 14.3 (11.5-14.5) % Plt Count 206 (130-400) K/uL MPV 11.7 H (7.4-10.4) fL Immature Gran % (Auto) 0.6 % Neut % (Auto) 82.6 % Lymph % (Auto) 5.8 % [place] % (Auto) 9.8 % Eos % (Auto) 1.0 % Baso % (Auto) 0.2 % Neut # (Auto) 10.19 H (1.4-6.5) K/uL Lymph # (Auto) 0.71 L (1.2-3.4) K/uL [place] # (Auto) 1.21 H (0.11-0.59) K/uL Eos # (Auto) 0.12 (0-0.5) K/uL Baso # (Auto) 0.03 (0-0.2) K/uL Immature Gran # (Auto) 0.08 H (0.00-0.02) K/uL PT 10.4 (9.0-12.0) Seconds INR 1.0 (0.9-1.1) APTT 25.7 (21.0-31.0) Seconds PTT Ratio 0.9 ABG pH (7.35-7.45) ABG pCO2 (35-46) mmHg ABG pO2 (80-95) mmHg ABG HCO3 (19-24) mmol/L ABG O2 Saturation (90-95) % ABG Base Excess (-9-1.8) mEq/L Richard Test (Pos) Barometric Pressure mm/Hg Oxygen Given Sodium 148 H (136-145) mmol/L Potassium 4.0 (3.5-5.1) mmol/L Chloride 119 H (98-107) mmol/L Carbon Dioxide 21 (21-32) mmol/L Anion Gap 8.0 (3-11) BUN 70 H (7-18) mg/dl Creatinine 3.46 H (0.6-1.2) mg/dl Est Cr Clr Drug Dosing 18.1 ml/min Est GFR ( Amer) 14.4 Est GFR (Non-Af Amer) 12.5 BUN/Creatinine Ratio 20.3 H (10-20) Glucose 104 H (70-99) mg/dl Lactate (0.4-2.0) mmol/L Calcium 7.4 L (8.5-10.1) mg/dl Magnesium 2.1 (1.8-2.4) mg/dl Total Bilirubin 0.3 (0.2-1) mg/dl AST 13 L (15-37) U/L ALT 8 L (12-78) U/L Alkaline Phosphatase 96 (45-117) U/L Troponin I 0.398 H* (0-0.045) ng/ml NT-Pro-B Natriuret Pep 8154 H (0-900) pg/ml Total Protein 7.6 (6.4-8.2) gm/dl Albumin 3.1 L (3.4-5.0) gm/dl Globulin 4.5 H (2.5-4.0) gm/dl Albumin/Globulin Ratio 0.7 L (0.9-2) Urine Color Urine Appearance (Clear) Urine pH (4.5-7.5) Ur Specific [place] (1.000-1.030) Urine Protein (Negative) Urine Glucose (UA) (Negative) Urine Ketones (Negative) Urine Blood (Negative) Urine Nitrite (Negative) Urine Bilirubin (Negative) Urine Urobilinogen (Negative) Ur Leukocyte Esterase (Negative) Urine RBC (0-4) /hpf Urine WBC (0-5) /hpf Ur Epithelial Cells (0-5) /lpf Urine Bacteria (Negative) Hyaline Casts (0-5) /lpf Urine Mucus (None Prsent) COVID-19 PCR (Negative) 09/21/19 Range/Units 12:28 WBC (4.8-10.8) K/uL RBC (4.2-5.4) M/uL Hgb (12.0-16.0) g/dL Hct (37-47) % MCV (80-100) fL MCH (25-34) pg MCHC (32-36) g/dL RDW Std Deviation (36.4-46.3) fL RDW Coeff of Bhavin (11.5-14.5) % Plt Count (130-400) K/uL MPV (7.4-10.4) fL Immature Gran % (Auto) % Neut % (Auto) % Lymph % (Auto) % [place] % (Auto) % Eos % (Auto) % Baso % (Auto) % Neut # (Auto) (1.4-6.5) K/uL Lymph # (Auto) (1.2-3.4) K/uL [place] # (Auto) (0.11-0.59) K/uL Eos # (Auto) (0-0.5) K/uL Baso # (Auto) (0-0.2) K/uL Immature Gran # (Auto) (0.00-0.02) K/uL PT (9.0-12.0) Seconds INR (0.9-1.1) APTT (21.0-31.0) Seconds PTT Ratio ABG pH (7.35-7.45) ABG pCO2 (35-46) mmHg ABG pO2 (80-95) mmHg ABG HCO3 (19-24) mmol/L ABG O2 Saturation (90-95) % ABG Base Excess (-9-1.8) mEq/L Richard Test (Pos) Barometric Pressure mm/Hg Oxygen Given Sodium (136-145) mmol/L Potassium (3.5-5.1) mmol/L Chloride (98-107) mmol/L Carbon Dioxide (21-32) mmol/L Anion Gap (3-11) BUN (7-18) mg/dl Creatinine (0.6-1.2) mg/dl Est Cr Clr Drug Dosing ml/min Est GFR ( Amer) Est GFR (Non-Af Amer) BUN/Creatinine Ratio (10-20) Glucose (70-99) mg/dl Lactate (0.4-2.0) mmol/L Calcium (8.5-10.1) mg/dl Magnesium (1.8-2.4) mg/dl Total Bilirubin (0.2-1) mg/dl AST (15-37) U/L ALT (12-78) U/L Alkaline Phosphatase (45-117) U/L Troponin I (0-0.045) ng/ml NT-Pro-B Natriuret Pep (0-900) pg/ml Total Protein (6.4-8.2) gm/dl Albumin (3.4-5.0) gm/dl Globulin (2.5-4.0) gm/dl Albumin/Globulin Ratio (0.9-2) Urine Color Yellow Urine Appearance Turbid A (Clear) Urine pH (4.5-7.5) Ur Specific [place] 1.012 (1.000-1.030) Urine Protein (Negative) Urine Glucose (UA) (Negative) Urine Ketones (Negative) Urine Blood (Negative) Urine Nitrite (Negative) Urine Bilirubin (Negative) Urine Urobilinogen (Negative) Ur Leukocyte Esterase (Negative) Urine RBC >30 H (0-4) /hpf Urine WBC >30 H (0-5) /hpf Ur Epithelial Cells 5-10 H (0-5) /lpf Urine Bacteria 3+ H (Negative) Hyaline Casts 5-10 H (0-5) /lpf Urine Mucus Present A (None Prsent) COVID-19 PCR (Negative) Coding Level of Care Code Critical Care ea addt'l 30 min Diagnoses Acute hypoxemic respiratory failure J96.01 Anemia N18.4; D63.1 Anemia type: due to chronic kidney disease Chronic kidney disease stage: stage 4 (severe) Morbid obesity E66.01 Metabolic acidosis E87.2 Hypernatremia E87.0 Hyperchloremic metabolic acidosis E87.2 SAM (acute kidney injury) N17.9 Hematuria R31.0 Hematuria type: gross Dehydration with hypernatremia E87.0 UTI (urinary tract infection) N30.01 Urinary tract infection type: acute cystitis Hematuria presence: with hematuria Sepsis A41.9; R65.20; J96.01 Sepsis type: sepsis due to unspecified organism Sepsis acute organ dysfunction status: with acute organ dysfunction Severe sepsis acute organ dysfunction type: acute respiratory failure Acute respiratory failure type: with hypoxia Severe sepsis shock status: without septic shock Rheumatoid arthritis M06.9 Rheumatoid arthritis location: unspecified site Rheumatoid factor presence: unspecified presence CKD (chronic kidney disease), stage IV N18.4 RACHEL (iron deficiency anemia) D50.8 Iron deficiency anemia type: inadequate dietary iron intake RENÉ on CPAP G47.33; Z99.89 DM type 2 (diabetes mellitus, type 2) E11.9 LBBB (left bundle branch block) I44.7 Elevated troponin R79.89 Elevated brain natriuretic peptide (BNP) level R79.89 Time Spent (min) 95 Comment I have personally spent 95 minutes of critical care time in the direct ma nagement of this patient. This is a life/limb threatening event. This includes time spent evaluating patient, direct bedside care, chart review, placing orders, interpretation of diagnostic studies, discussion with consultants, patient, and/or family members regarding treatment decisions, as well as other required patient management activities. This time is exclusive of all separately billable procedures, and teaching time and separate from and in addition to any other critical care service time. (1) Anemia Anemia type: due to chronic kidney disease Chronic kidney disease stage: stage 4 (severe) Qualified Code(s): N18.4 - Chronic kidney disease, stage 4 (severe); D63.1 - Anemia in chronic kidney disease (2) Hematuria Hematuria type: gross Qualified Code(s): R31.0 - Gross hematuria (3) UTI (urinary tract infection) Urinary tract infection type: acute cystitis Hematuria presence: with hematuria Qualified Code(s): N30.01 - Acute cystitis with hematuria (4) Sepsis Sepsis type: sepsis due to unspecified organism Sepsis acute organ dysfunction status: with acute organ dysfunction Severe sepsis acute organ dysfunction type: acute respiratory failure Acute respiratory failure type: with hypoxia Severe sepsis shock status: without septic shock Qualified Code(s): A41.9 - Sepsis, unspecified organism; R65.20 - Severe sepsis without septic shock; J96.01 - Acute respiratory failure with hypoxia (5) Rheumatoid arthritis Rheumatoid arthritis location: unspecified site Rheumatoid factor presence: unspecified presence Qualified Code(s): M06.9 - Rheumatoid arthritis, unspecified (6) RACHEL (iron deficiency anemia) Iron deficiency anemia type: inadequate dietary iron intake Qualified Code(s): D50.8 - Other iron deficiency anemias
--- NOTE | 2019-09-21 17:20 | Pharmacy Report ---
Pharmacy Abx Initial Consult - Date of Service September 21, 2019 - Pharmacy Dosing Scope Date of Consult: 09/21/19 Consultation requested by: Dr. Guillen Pharmacy is consulted to initiate Vancomycin IV dosing therapy, order appropriate labs and adjust drug dose/frequency. - Subjective The patient is a 74 year old F admitted on 09/21/19 15:14. - Objective Height: 5 ft 5 in Weight: 112.7 kg Vital Signs (Past 12hrs): Vital Signs Temp Pulse Pulse Resp BP BP Pulse Ox 09/21/19 16:34 85 20 98 09/21/19 16:20 72 16 126/57 L 99 09/21/19 15:47 78 18 119/72 99 09/21/19 14:59 85 16 125/72 98 09/21/19 14:31 96 H 18 163/83 H 99 09/21/19 14:19 92 H 18 147/71 H 99 09/21/19 13:30 37.0 C 94 H 18 145/73 H 100 09/21/19 12:47 100 09/21/19 12:27 22 99 09/21/19 12:25 93 H 22 99 09/21/19 12:19 38.2 C H 86 20 157/88 H 100 Lab Results (24hrs): Laboratory Tests (24 Hours) 09/21/19 09/21/19 12:43 12:43 WBC 12.34 H Neut # (Auto) 10.19 H Creatinine 3.46 H Est Cr Clr Drug Dosing 18.1 Micro Results: 09/21/19 12:45 Aerobic Blood Culture - Pending Blood Anaerobic Blood Culture - Pending 09/21/19 12:43 Aerobic Blood Culture - Pending Blood Anaerobic Blood Culture - Pending - Risk Factors for Resistance * Hospitalization for 48 hours or more within the past 90 days - recently admitted from 08/14 - 08/19 for pneumonia, then went to [facility] for rehab before returning home. - Assessment & Plan Assessment 74 year old F with h/o CKD IV (SCr baseline ~2.5, 3.46 on admission), T2DM, RENÉ (uses BIPAP at night), and several other comorbidities presents to the ED with her at suggestion on their [facility] health nurse. Pt's found her asleep in her wheelchair overnight with her bipap off and sats in the 70s. Saturation did not improve throughout the day so they were referred to the ER. CXR shows pneumonia. MRSA swab pending. Blood cx x2 pending. COVID test negative in August, awaiting updated test result as patient has been around several family members and healthcare workers. Tmax in the ED 38.2 C Plan Vancomycin for treatment of pneumonia Vancomycin IV * Estimated PK Parameters: Vd 0.7 L/kg, Alphonse 0.019 hr-1, t1/2 35 hr * Loading dose: 2000 mg (~18mg/kg) given in the ED * Goal trough level : 15 to 20 mcg/mL * Random level ordered for 09/22/19 with AM labs to help assist with dosing due to patient's extended estimated half-life. Pharmacy will continue to follow and will adjust dose/frequency as necessary. Thank you.
[2019-09-21] MEDS: NORMOSOL-R 1,000 ML IV SCH (18:06)
[2019-09-21 18:23] LABS: Adenovirus PCR Not Detected (NotDetected); Bordetella parapertussis PCR Not Detected (NotDetected); Bordetella pertussis PCR Not Detected (NotDetected); Chlamydia pneumoniae PCR Not Detected (NotDetected); Coronavirus 229E PCR Not Detected (NotDetected); Coronavirus HKU1 PCR Not Detected (NotDetected); Coronavirus NL63 PCR Not Detected (NotDetected); Coronavirus OC43PCR Not Detected (NotDetected); Human Metapneumovirus PCR Not Detected (NotDetected); Influenza A PCR Not Detected (NotDetected); Influenza B PCR Not Detected (NotDetected); Mycoplasma pneumoniae PCR Not Detected (NotDetected); Parainfluenza Virus 1 PCR Not Detected (NotDetected); Parainfluenza Virus 2 PCR Not Detected (NotDetected); Parainfluenza Virus 3 PCR Not Detected (NotDetected); Parainfluenza Virus 4 PCR Not Detected (NotDetected); Respiratory Syncytial VirusPCR Not Detected (NotDetected); Rhinovirus/Enterovirus PCR Not Detected (NotDetected)
[2019-09-21] MEDS: methylPREDNISolone 30 MG in SYRINGE 0 ML IV SCH (20:22)
[2019-09-22 04:55] LABS: Basophils # (auto) 0.01 K/uL (0-0.2); Basophils % (auto) 0.1 %; Hematocrit (blood only) 24.5 % (37-47); Hemoglobin 7.7 g/dL (12.0-16.0); Immature Granulocytes # (auto) 0.06 K/uL (0.00-0.02); Immature Granulocytes % (auto) 0.6 %; Lymphocytes # (auto) 0.31 K/uL (1.2-3.4); Lymphocytes % (auto) 3.1 %; Mean Corpuscular Hemoglobin 28.7 pg (25-34); Mean Corpuscular Hgb Conc 31.4 g/dL (32-36); Mean Corpuscular Volume 91.4 fL (80-100); Mean Platelet Volume 11.5 fL (7.4-10.4); Monocytes # (auto) 0.33 K/uL (0.11-0.59); Monocytes % (auto) 3.3 %; Neutrophils # (auto) 9.23 K/uL (1.4-6.5); Neutrophils % (auto) 92.9 %; Platelet Count 189 K/uL (130-400); RDW Coefficient of Variation 14.3 % (11.5-14.5); RDW Standard Deviation 47.8 fL (36.4-46.3); Red Blood Count 2.68 M/uL (4.2-5.4); White Blood Count 9.94 K/uL (4.8-10.8)
[2019-09-22 05:19] LABS: RBC Morphology Unremarkable
[2019-09-22 05:43] LABS: BUN Creatinine Ratio 21.1 (10-20); Calcium 8.3 mg/dl (8.5-10.1); Creatinine Clr Calc Pharmacy 17.3 ml/min; Est GFR (African American) 14.3; Est GFR (Non-African American) 12.3; Magnesium 2.7 mg/dl (1.8-2.4); Phosphorus 5.6 mg/dl (2.5-4.9); Potassium 4.6 mmol/L (3.5-5.1)
[2019-09-22] MEDS: NORMOSOL-R 1,000 ML IV SCH (06:07)
--- NOTE | 2019-09-22 06:46 | Electrocardiogram Report ---
Test Reason : Blood Pressure : / mmHG Vent. Rate : 083 BPM Atrial Rate : 083 BPM P-R Int : 166 ms QRS Dur : 152 ms QT Int : 418 ms P-R-T Axes : 049 053 043 degrees QTc Int : 491 ms Poor data quality, interpretation may be adversely affected Normal sinus rhythm Left bundle branch block Abnormal ECG When compared with ECG of 15-AUG-2019 14:56, No significant change was found Confirmed by Ciro Kidd ([id number]) on 09/22/2019 6:45:35 AM Referred By: REFERRED SELF Confirmed By:Ciro Kidd
[2019-09-22] MEDS: methylPREDNISolone 30 MG in SYRINGE 0 ML IV SCH ×2 (07:49→21:00)
[2019-09-22] MEDS ORDERED: VANCOMYCIN HCL 750 MG in SODIUM CHLORIDE 0.9% 250 ML IV ONE (09:00)
--- NOTE | 2019-09-22 09:57 | Hospitalist Progress Note ---
Date of Service September 22, 2019 Assessment & Plan (1) Sepsis: Admitted with sepsis, source of infection, possible multi-focal pneumonia/community-acquired pneumonia COVID-19 negative, bio fire negative on IV cefepime and vanco will dc levaquin (2) Acute respiratory failure: acute on chronic respiratory failure due to multifocal pneumonia at baseline pt has COPD, RENÉ/OHV on CPAP with nocturnal hypoxemia on 2LPM oxygen, presented with hypoxia , respiratory failure , required non invasive respiratory support, ICU admission Respiratory status improved to approximate baseline, on 2 L oxygen via nasal cannula Continue on broad-spectrum antibiotic for pneumonia, on IV Solu-Medrol for COPD, Appreciate input from pulmonary critical care (3) Pneumonia: Treatment as outlined above (4) Elevated troponin: Likely related to demand ischemia in setting of sepsis, no evidence of acute coronary event , no complain of chest pain or shortness of breath , on hemodynamic instability Resumed home meds of aspirin, Imdur (5) Parkinson disease: On Sinemet (6) Rheumatoid arthritis: was previously on sulfasalazine, but this was stopped in July 2019 secondary to worsening kidney function. RA affects her hands and she takes APAP as needed per her . (7) DM type 2 (diabetes mellitus, type 2): A1c was 5.1 in Mar 2019. She is diet controlled. (8) Chronic diastolic heart failure: Recent echocardiogram done on 09/04/2019,: Grade 1 diastolic dysfunction, EF 50-55% Stable volume status, Diuretics/Lasix was kept on hold secondary to severe sepsis, possible dehydration Will be resumed tomorrow (9) CKD (chronic kidney disease), stage IV: Acute renal failure on CKD stage IV, with hypernatremia secondary to dehydration/sepsis Patient ordered for IV fluids, did hold diuretics nephrology consulted Avoid nephrotoxic agents and renally dose meds as needed. (10) Hypertension: Outpatient antihypertensive resumed, hold Lasix for acute renal failure on CKD stage IV (11) Anemia: Likely multifactorial etiology including ACD, anemia of CKD and iron deficiency. Follow H&H (12) LBBB (left bundle branch block): chronic (13) Morbid obesity: (14) DVT prophylaxis: sub q heparin Full Code Disposition: Clinically stable to be transferred to PCU/telemetry Out of bed as tolerated, PT OT evaluation requested Admission and Anticipated Discharge Date Admission Date: September 21, 2019 Subjective Patient seen in ICU room 109, Awake and alert, offers no complaint, denies of any shortness of breath, no cough On 3 L oxygen via nasal cannula (at home on 2 L O2) Mentions that she is hungry, wants to have breakfast, Does not recall the events that led her to hospital admission, Afebrile, vitals remained stable so far Review of Systems Review of Systems: All systems reviewed & are unremarkable except as noted in HPI & below Physical Exam Constitutional: + obese; no acute distress Eyes: PERRL, conjunctivae normal, anicteric sclerae ENMT: external ear and nose normal, oropharynx normal Neck: trachea midline, no thyromegaly Respiratory: + cough Auscultation: + crackles, + rales (Bibasilar Rales) and + rhonchi; no wheezes Cardiovascular: RRR, no murmur, no edema Gastrointestinal (Abdomen): Inspection/Auscultation: normal bowel sounds Percussion/Palpation: abdomen soft; abdomen nontender Musculoskeletal: Generalized weakness Skin: Bruise noted on left flank area, Neurologic: PERRL, EOMI, accommodation nl, no face palsy, no dysarthria Psychiatric: A+Ox3, euthymic affect Results & Data Results & Data ([facility]) Vital Signs (Past 12 Hours) Vital Signs Temp Pulse Resp BP Pulse Ox 09/22/19 09:44 37.2 C 63 18 132/54 L 95 09/22/19 08:22 36.9 C 59 L 14 118/67 95 09/22/19 08:00 61 09/22/19 07:07 64 17 156/69 H 93 09/22/19 06:37 67 14 132/79 93 09/22/19 06:00 64 13 92 09/22/19 05:37 37.2 C 67 17 139/70 99 09/22/19 05:07 37.2 C 77 12 143/59 H 98 09/22/19 05:00 37.2 C 70 15 99 09/22/19 04:37 37.1 C 68 14 129/79 99 09/22/19 04:07 37.1 C 65 14 142/61 H 96 09/22/19 04:00 37.1 C 64 14 96 09/22/19 03:37 37.1 C 68 15 141/68 H 95 09/22/19 03:07 37.1 C 64 14 134/59 L 96 09/22/19 03:00 37.1 C 63 14 96 09/22/19 02:48 68 16 96 09/22/19 02:37 37.2 C 62 15 133/53 L 95 09/22/19 02:07 37.2 C 63 15 132/54 L 96 09/22/19 02:00 37.2 C 65 14 96 09/22/19 01:37 37.2 C 130 H 10 L 145/84 H 96 09/22/19 01:07 37.1 C 66 14 139/55 L 94 09/22/19 01:00 37.1 C 65 15 96 09/22/19 00:37 37.2 C 66 17 128/56 L 94 09/22/19 00:07 37.2 C 64 15 123/55 L 95 09/22/19 00:00 37.2 C 64 14 96 09/21/19 23:36 37.2 C 68 15 139/71 97 09/21/19 23:07 37.2 C 74 16 108/64 98 09/21/19 23:00 37.2 C 69 13 99 09/21/19 22:00 37.2 C 67 16 93 (1) Rheumatoid arthritis Rheumatoid arthritis location: unspecified site Rheumatoid factor presence: unspecified presence Qualified Code(s): M06.9 - Rheumatoid arthritis, unspecified (2) Anemia Anemia type: due to chronic kidney disease Chronic kidney disease stage: stage 4 (severe) Qualified Code(s): N18.4 - Chronic kidney disease, stage 4 (severe); D63.1 - Anemia in chronic kidney disease (3) Sepsis Acute respiratory failure type: with hypoxia Sepsis acute organ dysfunction status: with acute organ dysfunction Sepsis type: sepsis due to unspecified organism Severe sepsis acute organ dysfunction type: acute respiratory failure Severe sepsis shock status: without septic shock Qualified Code(s): A41.9 - Sepsis, unspecified organism; R65.20 - Severe sepsis without septic shock; J96.01 - Acute respiratory failure with hypoxia (4) Hypertension Hypertension type: essential hypertension Qualified Code(s): I10 - Essential (primary) hypertension
--- NOTE | 2019-09-22 10:15 | Critical Care Progress Note ---
Date of Service September 22, 2019 Assessment & Plan (1) Acute hypoxemic respiratory failure: Reason Critically Ill: 74-year-old female with acute hypoxemic respiratory failure and acute kidney injury PLAN: Neuro: Acute encephalopathy: Resolved -Likely multifactorial: Resp: Acute hypoxic respiratory failure secondary to multifocal pneumonia: Improved -Bio fire panel pending, COVID negative Obstructive sleep apnea on CPAP therapy -Continue CPAP 10/5 at 40% saturating adequately CV: Coronary artery disease Left bundle branch block, no change from previous EKGs Elevated troponins, suspect demand versus acute kidney injury: Normal blood pressure -Reviewed 08/16/2019 echo: Moderate left ventricular concentric hypertrophy septal wall motion consistent with conduction abnormality borderline global hypokinesis of left ventricle EF 50 to 55% with grade 1 diastolic dysfunction Fluids/Renal: Acute kidney injury on stage IV chronic kidney disease: Improved -Discontinuing supplemental hydration Hypernatremia secondary to dehydration: Improved Hematuria: Secondary to dehydration versus infectious related: Improved Urinary tract infection ID: Urinary tract infection Probable pneumonia Blood cultures pending -Broad-spectrum antibiotics: Vancomycin, cefepime, Levaquin ordered by primary team GI/Nutrition: Diet for History nonalcoholic steatohepatitis Morbid obesity: BMI 41 Heme: Anemia: Multifactorial: Kidney disease and iron deficiency DVT prophylaxis: Heparin 7500 3 times daily given morbid obesity: BMI 41 Endocrine: ICU hyperglycemia protocol Hemoglobin A1c 4.3 in August 16, 2019 Rheumatoid arthritis -No steroids on home medication list -We will continue steroids for presumptive community- acquired pneumonia dosing Vascular access: Peripheral IVs Code Status: Full code Disposition: Stable for downgrade out of ICU (2) Anemia: (3) Morbid obesity: (4) Metabolic acidosis: (5) Hypernatremia: (6) Hyperchloremic metabolic acidosis: (7) SAM (acute kidney injury): (8) Hematuria: (9) Dehydration with hypernatremia: (10) UTI (urinary tract infection): (11) Sepsis: (12) Rheumatoid arthritis: (13) CKD (chronic kidney disease), stage IV: (14) RACHEL (iron deficiency anemia): (15) RENÉ on CPAP: (16) DM type 2 (diabetes mellitus, type 2): (17) LBBB (left bundle branch block): (18) Elevated troponin: (19) Elevated brain natriuretic peptide (BNP) level: Admission and Anticipated Discharge Date Admission Date: September 21, 2019 Subjective Patient without significant complaint, feels much better desiring to eat breakfast. Review of Systems Review of Systems: As per the HPI. Physical Exam Physical Exam: General: Alert. nontoxic. Skin: Warm, dry, Head: Atraumatic Ears, nose, mouth and throat: airway patent Cardiovascular: Normal peripheral perfusion Respiratory: no respiratory distress Gastrointestinal: Non distended Musculoskeletal: No deformity Results & Data Results & Data ([facility]) Vital Signs (Past 12 Hours) Vital Signs Temp Pulse Resp BP Pulse Ox 09/22/19 09:44 37.2 C 63 18 132/54 L 95 09/22/19 08:22 36.9 C 59 L 14 118/67 95 09/22/19 08:00 61 09/22/19 07:07 64 17 156/69 H 93 09/22/19 06:37 67 14 132/79 93 09/22/19 06:00 64 13 92 09/22/19 05:37 37.2 C 67 17 139/70 99 09/22/19 05:07 37.2 C 77 12 143/59 H 98 09/22/19 05:00 37.2 C 70 15 99 09/22/19 04:37 37.1 C 68 14 129/79 99 09/22/19 04:07 37.1 C 65 14 142/61 H 96 09/22/19 04:00 37.1 C 64 14 96 09/22/19 03:37 37.1 C 68 15 141/68 H 95 09/22/19 03:07 37.1 C 64 14 134/59 L 96 09/22/19 03:00 37.1 C 63 14 96 09/22/19 02:48 68 16 96 09/22/19 02:37 37.2 C 62 15 133/53 L 95 09/22/19 02:07 37.2 C 63 15 132/54 L 96 09/22/19 02:00 37.2 C 65 14 96 09/22/19 01:37 37.2 C 130 H 10 L 145/84 H 96 09/22/19 01:07 37.1 C 66 14 139/55 L 94 09/22/19 01:00 37.1 C 65 15 96 09/22/19 00:37 37.2 C 66 17 128/56 L 94 09/22/19 00:07 37.2 C 64 15 123/55 L 95 09/22/19 00:00 37.2 C 64 14 96 09/21/19 23:36 37.2 C 68 15 139/71 97 09/21/19 23:07 37.2 C 74 16 108/64 98 09/21/19 23:00 37.2 C 69 13 99 Coding Level of Care Code 37572 Subseq Hosp Care Lvl 3 Diagnoses Acute hypoxemic respiratory failure J96.01 Anemia N18.4; D63.1 Anemia type: due to chronic kidney disease Chronic kidney disease stage: stage 4 (severe) Morbid obesity E66.01 Metabolic acidosis E87.2 Hypernatremia E87.0 Hyperchloremic metabolic acidosis E87.2 SAM (acute kidney injury) N17.9 Hematuria R31.0 Hematuria type: gross Dehydration with hypernatremia E87.0 UTI (urinary tract infection) N30.01 Hematuria presence: with hematuria Urinary tract infection type: acute cystitis Sepsis A41.9; R65.20; J96.01 Acute respiratory failure type: with hypoxia Sepsis acute organ dysfunction status: with acute organ dysfunction Sepsis type: sepsis due to unspecified organism Severe sepsis acute organ dysfunction type: acute respiratory failure Severe sepsis shock status: without septic shock Rheumatoid arthritis M06.9 Rheumatoid arthritis location: unspecified site Rheumatoid factor presence: unspecified presence CKD (chronic kidney disease), stage IV N18.4 RACHEL (iron deficiency anemia) D50.8 Iron deficiency anemia type: inadequate dietary iron intake RENÉ on CPAP G47.33; Z99.89 DM type 2 (diabetes mellitus, type 2) E11.9 LBBB (left bundle branch block) I44.7 Elevated troponin R79.89 Elevated brain natriuretic peptide (BNP) level R79.89 (1) UTI (urinary tract infection) Hematuria presence: with hematuria Urinary tract infection type: acute cystitis Qualified Code(s): N30.01 - Acute cystitis with hematuria (2) Rheumatoid arthritis Rheumatoid arthritis location: unspecified site Rheumatoid factor presence: unspecified presence Qualified Code(s): M06.9 - Rheumatoid arthritis, unspecified (3) Hematuria Hematuria type: gross Qualified Code(s): R31.0 - Gross hematuria (4) Anemia Anemia type: due to chronic kidney disease Chronic kidney disease stage: stage 4 (severe) Qualified Code(s): N18.4 - Chronic kidney disease, stage 4 (severe); D63.1 - Anemia in chronic kidney disease (5) RACHEL (iron deficiency anemia) Iron deficiency anemia type: inadequate dietary iron intake Qualified Code(s): D50.8 - Other iron deficiency anemias (6) Sepsis Acute respiratory failure type: with hypoxia Sepsis acute organ dysfunction status: with acute organ dysfunction Sepsis type: sepsis due to unspecified organism Severe sepsis acute organ dysfunction type: acute respiratory failure Severe sepsis shock status: without septic shock Qualified Code(s): A41.9 - Sepsis, unspecified organism; R65.20 - Severe sepsis without septic shock; J96.01 - Acute respiratory failure with hypoxia
--- NOTE | 2019-09-22 10:55 | XRay Report ---
XR chest 1V portable CLINICAL HISTORY: Pneumonia COMPARISON STUDY: 09/21/2019 FINDINGS: The heart is enlarged. There are bilateral pulmonary airspace opacities with significant im provement on the left. The findings are suggestive of pulmonary edema. There is no lobar consolidatio n.[ IMPRESSION: Bilateral pulmonary airspace opacities with interval improvement on the left. The finding s are suggestive of improving pulmonary edema. ACT 112: Negative or not required by law. Electronically signed by: Maximilian Jay M.D. 09/22/2019 10:53 AM
[2019-09-22] MEDS ORDERED: MECLIZINE HCL 25 MG TAB PO PRN (11:18)
[2019-09-22] MEDS: CEFEPIME 2,000 MG in SYRINGE 7.5 ML IV SCH (12:09)
--- NOTE | 2019-09-22 13:16 | Pharmacy Report ---
Pharmacy Abx Dose Short Note - Date of Service September 22, 2019 - Assessment & Plan Assessment 74 year old F receiving vancomcyin/cefepime for pneumonia/bacteremia. 1/4 cultures growing gram positive cocci in clusters (anaerobic bottle). Patient has been afebrile since admission, tmax in ER 38.2. Leukocytosis improved, normalized today. Continuing vancomycin/cefepime for HAP. Nasal MRSA swab was positive. Day # 2 of antimicrobial therapy. Plan Vancomycin * Random level this morning 19, will redose with 750 mg as patient within trough goal range of 15-20 mcg/mL * Continue dosing by levels as renal function similar to yesterday, predicting half life of >24 hours * Random level in AM to assist with dosing. Pharmacy will continue to follow and will adjust dose/frequency as necessary. Thank you.
[2019-09-22] MEDS: CARBIDOPA/LEVODOPA 25/100MG TAB PO SCH ×2 (14:22→18:16)
[2019-09-22] MEDS: BETAHISTINE 16 MG PO SCH ×2 (14:22→20:25)
[2019-09-22] MEDS: HEPARIN SODIUM (PORCINE) 7,500 UNITS in SYRINGE 0 ML SQ SCH ×2 (14:23→20:23)
--- NOTE | 2019-09-22 16:24 | Consultation Report ---
DATE OF CONSULTATION: 09/22/2019 NEPHROLOGY CONSULTATION REASON FOR CONSULT: Acute renal failure on background CKD IV. HISTORY OF PRESENT ILLNESS: The patient is a 74-year-old female with longstanding diabetes, hypothyroidism, obstructive sleep apnea on CPAP, COPD, congestive heart failure diastolic type as well as progressively worsening chronic kidney disease. Her most recent labs have been getting worse steadily and she recently established nephrology care with Dr. Erica Tobar, recent creatinine has been in the mid-to-high 2s. She presented to the hospital yesterday because of shortness of breath, weakness and confusion. She was felt to be in respiratory failure secondary to combination of pneumonia/hypoxia from sleep apnea. Creatinine was worse than baseline and she did receive gentle hydration, but not getting IV fluid at this time. Creatinine was 3.46 yesterday at the time of admission. A month ago, she had a creatinine of 2.86. This morning, creatinine is 3.49. She has made about a liter of urine already in less than 24-hour time period. Her mental status also seems to be getting somewhat better at this time. At home, she takes diuretics 60 mg twice daily as well as potassium chloride 20 mEq daily. MEDICATIONS: Home medication list was reviewed in full detail and is as per H and P. ALLERGIES: None. PAST MEDICAL AND SURGICAL HISTORY: Chronic diastolic heart failure, chronic kidney disease stage IV with a baseline creatinine in the mid 2s. Multiple episodes of acute renal failure in the last 6 months, type 2 diabetes, depression, dyslipidemia, Meniere's disease with severe hearing deficit, obstructive sleep apnea on chronic CPAP, Parkinson's disease, restless leg syndrome, history of subdural hematoma, hypothyroidism, sinus surgery, carpal tunnel surgery, orthopedic surgery for heel, tubal ligation. FAMILY HISTORY: Negative for renal disease or dialysis. SOCIAL HISTORY: Former smoker. No alcohol now. , lives with her . REVIEW OF SYSTEM: Unobtainable from the patient given her cognitive status and confusion yesterday. The patient's was asked in detail and as per the , she had weakness and shortness of breath and confusion. There was also some low-grade fever, but denies having any cough with phlegm, nausea, vomiting, diarrhea. Appetite was fairly normal. PHYSICAL EXAMINATION: GENERAL: Morbidly obese white female who appears chronically ill. She is extremely hard of hearing, not following command as a result. HEENT: Mucous membrane moist. NECK: Supple. No jugular venous distention. CHEST: Bilateral decreased breath sounds with prolonged expiration. CARDIOVASCULAR: Regular rate and rhythm. No murmur, rubs or gallop. ABDOMEN: Soft, nontender. EXTREMITIES: Shows trace edema. NEUROLOGIC: Moving all 4 extremities. Slow but normal speech. VITAL SIGNS: Blood pressure is 134/55, pulse rate 64, temperature 37.4, 92% on 3-liter nasal cannula. LABORATORY TESTS: Sodium 147, potassium 4.6, BUN 74, creatinine 3.49, magnesium 2.7, phosphorus 5.6. Hemoglobin 7.8, platelet count 189. Chest x-ray shows pulmonary edema. ASSESSMENT AND PLAN: A 74-year-old female with history of diastolic congestive heart failure, obstructive sleep apnea, chronic obstructive pulmonary disease as well as chronic kidney disease stage IV, presented to the hospital yesterday with respiratory failure with hypoxia possibly related with pneumonia as well as component of pulmonary edema. She was found to have acute renal failure on background chronic kidney disease IV for which I have been consulted. 1. Acute renal failure. The acute component is minimal as this appears to be predominantly chronic kidney disease. Even at baseline, her creatinine is about 2.9 and the current creatinine is about 3.5. Her fluid status is somewhat difficult to assess, but I do not think she is really volume depleted as such and I agree with stopping the IV fluid. She has improved significantly compared to yesterday. If possible, I would like to hold off on the IV fluid as well as diuretics for today. We will reassess tomorrow. She will eventually have to be put on diuretics either tomorrow or day after depending on the trend of the kidney function. 2. Respiratory failure, combination of pneumonia/CHF/CPAP. She is getting antibiotics. She does have a Kirby catheter at this time and is having some blood tinged urine likely from Kirby trauma as she had completely clear urine at home. We will continue to follow. Case was discussed in detail with the . At this point of time, she does not need dialysis, but the trend of her kidney function is not good and over the last few months, she has declined quite a bit and she may need dialysis in the coming months, but not right now. BRENDA
[2019-09-22] MEDS: PREGABALIN 75 MG CAP PO SCH (20:22)
[2019-09-22] MEDS: MELATONIN 3 MG TAB PO SCH (20:22)
[2019-09-22] MEDS: buPROPion HCl 75 MG TABLET PO SCH (20:23)
[2019-09-22] MEDS: PRAVASTATIN SOD 40 MG TAB PO SCH (20:23)
[2019-09-22] MEDS: TERAZOSIN HCL 5 MG CAP PO SCH (20:23)
[2019-09-22] MEDS: PRAMIPEXOLE DIHYDROCHLO 0.25 MG TAB PO SCH (20:23)
--- NOTE | 2019-09-23 05:46 | Electrocardiogram Report ---
Test Reason : Blood Pressure : / mmHG Vent. Rate : 065 BPM Atrial Rate : 065 BPM P-R Int : 170 ms QRS Dur : 156 ms QT Int : 474 ms P-R-T Axes : 063 048 058 degrees QTc Int : 492 ms Normal sinus rhythm with sinus arrhythmia Left bundle branch block Abnormal ECG When compared with ECG of 21-SEP-2019 12:19, No significant change was found Confirmed by Ciro Kidd ([id number]) on 09/23/2019 5:45:28 AM Referred By: REFERRED SELF Confirmed By:Ciro Kidd
[2019-09-23] MEDS: HEPARIN SODIUM (PORCINE) 7,500 UNITS in SYRINGE 0 ML SQ SCH ×3 (05:53→22:15)
[2019-09-23] MEDS: LEVOTHYROXINE SODIUM 125 MCG TABLET PO SCH (05:54)
[2019-09-23 06:47] LABS: Basophils # (auto) 0.01 K/uL (0-0.2); Basophils % (auto) 0.1 %; Hematocrit (blood only) 24.7 % (37-47); Hemoglobin 7.8 g/dL (12.0-16.0); Immature Granulocytes # (auto) 0.12 K/uL (0.00-0.02); Immature Granulocytes % (auto) 0.9 %; Lymphocytes # (auto) 0.61 K/uL (1.2-3.4); Lymphocytes % (auto) 4.8 %; Mean Corpuscular Hemoglobin 28.5 pg (25-34); Mean Corpuscular Hgb Conc 31.6 g/dL (32-36); Mean Corpuscular Volume 90.1 fL (80-100); Mean Platelet Volume 11.8 fL (7.4-10.4); Monocytes # (auto) 0.81 K/uL (0.11-0.59); Monocytes % (auto) 6.4 %; Neutrophils # (auto) 11.11 K/uL (1.4-6.5); Neutrophils % (auto) 87.8 %; Nucleated RBC # (auto) 0.06 K/uL (0-0); Nucleated RBC % (auto) 0.5 %; Platelet Count 234 K/uL (130-400); RDW Coefficient of Variation 14.2 % (11.5-14.5); RDW Standard Deviation 46.8 fL (36.4-46.3); Red Blood Count 2.74 M/uL (4.2-5.4); White Blood Count 12.66 K/uL (4.8-10.8)
[2019-09-23 07:04] LABS: RBC Morphology Unremarkable
[2019-09-23 07:23] LABS: Calcium 7.8 mg/dl (8.5-10.1); Creatinine Clr Calc Pharmacy 17.6 ml/min; Est GFR (African American) 14.3; Est GFR (Non-African American) 12.4; Magnesium 2.5 mg/dl (1.8-2.4); Phosphorus 5.2 mg/dl (2.5-4.9); Potassium 4.5 mmol/L (3.5-5.1)
[2019-09-23] MEDS: BETAHISTINE 16 MG PO SCH ×2 (08:06→22:12)
[2019-09-23] MEDS: CYANOCOBALAMIN 500 MCG TABLET (VITAMIN B-12) PO SCH (08:07)
[2019-09-23] MEDS: VENLAFAXINE HCL XR 75 MG CAPXR PO SCH (08:07)
[2019-09-23] MEDS: ASPIRIN 81 MG ECTAB PO SCH (08:07)
[2019-09-23] MEDS: CARBIDOPA/LEVODOPA 25/100MG TAB PO SCH ×3 (08:07→17:14)
[2019-09-23] MEDS: CHOLECALCIFEROL 1,000 UNITS 25 MCG TAB PO SCH (08:07)
[2019-09-23] MEDS: OXYBUTYNIN CHLORIDE XL 5 MG TABCR PO SCH (08:08)
[2019-09-23] MEDS: buPROPion HCl 75 MG TABLET PO SCH ×2 (08:08→22:10)
[2019-09-23] MEDS: PREGABALIN 75 MG CAP PO SCH ×2 (08:09→22:23)
[2019-09-23] MEDS: ISOSORBIDE MONO EXTENDED REL 30 MG TABCR PO SCH (08:11)
[2019-09-23] MEDS: AMLODIPINE BESYLATE 5 MG TAB PO SCH (08:12)
[2019-09-23] MEDS ORDERED: NON-FORMULARY MEDICATION (Iron,Carbonyl-Vitamin C [Vitron-C] 1 TAB) PO SCH (09:00)
[2019-09-23] MEDS ORDERED: LEVOFLOXACIN/D5W 750 MG/150 ML BAG IV SCH (09:00)
[2019-09-23] MEDS ORDERED: POTASSIUM CHLORIDE 20 MEQ TABCR PO SCH (09:00)
--- NOTE | 2019-09-23 09:24 | Pharmacy Report ---
Pharmacy Abx Dose Short Note - Date of Service September 23, 2019 - Assessment & Plan Assessment 74 year old F receiving vancomycin and cefepime for possible pneumonia/uti Day # 3 of antimicrobial therapy. Plan Vancomycin * Random level came back therapeutic this AM at ~19 mcg/ml * Will plan to redose with 750 mg of vancomycin x 1 this AM to maintain estimated peak of ~30 mcg/ml * Plan to continue dose by levels due to SAM on admission / nephrology following - no indication for dialysis yet * Order random tomorrow AM to assist with further dosing Pharmacy will continue to follow and will adjust dose/frequency as necessary. Thank you.
[2019-09-23] MEDS: methylPREDNISolone 30 MG in SYRINGE 0 ML IV SCH (09:51)
[2019-09-23] MEDS ORDERED: VANCOMYCIN HCL 750 MG in SODIUM CHLORIDE 0.9% 250 ML IV ONE (10:00)
[2019-09-23] MEDS: CEFEPIME 2,000 MG in SYRINGE 7.5 ML IV SCH (12:39)
[2019-09-23] MEDS ORDERED: LEVOFLOXACIN/D5W 500 MG/100 ML BAG IV SCH (14:00)
--- NOTE | 2019-09-23 14:41 | Hospitalist Progress Note ---
Date of Service September 23, 2019 Assessment & Plan (1) Sepsis: clinically continues to improve on 2 L 02 , no fever or chills Admitted with sepsis, source of infection, possible multi-focal pneumonia/community-acquired pneumonia COVID-19 negative, bio fire negative on IV cefepime and vanco blood culture on 09/21/19 one bottle coag negative staph -possible contamination repeat blood culture ordered (2) Acute respiratory failure: resolved , at baseline resp status presnted with acute on chronic respiratory failure with hypoxia due to multifocal pneumonia at baseline pt has COPD, RENÉ/OHV on CPAP with nocturnal hypoxemia on 2LPM oxygen, presented with hypoxia , respiratory failure , required non invasive respiratory support, ICU admission on broad-spectrum antibiotic for pneumonia, on IV Solu-Medrol for COPD, will deasclate abx as pt improving clinically wean off IV solu Medrol and transition to oral prednisone (3) Pneumonia: Treatment as outlined above (4) Elevated troponin: Likely related to demand ischemia in setting of sepsis, no evidence of acute coronary event , no complain of chest pain or shortness of breath , on hemodynamic instability Resumed home meds of aspirin, Imdur (5) Parkinson disease: On Sinemet (6) Rheumatoid arthritis: was previously on sulfasalazine, but this was stopped in July 2019 secondary to worsening kidney function. no acute issue at present (7) DM type 2 (diabetes mellitus, type 2): A1c was 5.1 in Mar 2019. She is diet controlled. (8) Chronic diastolic heart failure: Recent echocardiogram done on 09/04/2019,: Grade 1 diastolic dysfunction, EF 50-55% Stable volume status, Diuretics/Lasix was kept on hold due to SAM (9) CKD (chronic kidney disease), stage IV: Acute renal failure on CKD stage IV, with hypernatremia secondary to dehydration/sepsis diuretics on hold nephro consult requested Avoid nephrotoxic agents and renally dose meds as needed. (10) Hypertension: Outpatient antihypertensive resumed, hold Lasix for acute renal failure on CKD stage IV (11) Anemia: Likely multifactorial etiology including ACD, anemia of CKD and iron deficiency. hb 7.8 cont to monitor transfusion for hb < 7 or symptoms (12) LBBB (left bundle branch block): chronic (13) Morbid obesity: (14) DVT prophylaxis: sub q heparin Full Code Disposition: at baseline , pt is wheel chair /power chair bound PT/OT clarisaal requested and pt not interested in skilled rehab , wants to continue home PT , home health on discharge Admission and Anticipated Discharge Date Admission Date: September 21, 2019 Subjective pt sitting up on chair alert and oriented on 2 L 02 via nasal canula ( her baseline ) no cough , no fever or chills present at bedside Review of Systems Review of Systems: All systems reviewed & are unremarkable except as noted in HPI & below Physical Exam Constitutional: + obese; no acute distress Eyes: PERRL, conjunctivae normal, anicteric sclerae ENMT: external ear and nose normal, oropharynx normal Neck: trachea midline, no thyromegaly Respiratory: Auscultation: no wheezes Cardiovascular: RRR, no murmur, no edema Gastrointestinal (Abdomen): Inspection/Auscultation: normal bowel sounds Percussion/Palpation: abdomen soft; abdomen nontender Neurologic: PERRL, EOMI, accommodation nl, no face palsy, no dysarthria Psychiatric: A+Ox3, euthymic affect Results & Data Results & Data ([facility]) Vital Signs (Past 12 Hours) Vital Signs Temp Pulse Pulse Resp BP BP Pulse Ox 09/23/19 14:36 63 18 146/75 H 92 09/23/19 11:51 36.7 C 60 18 135/60 94 09/23/19 08:00 67 09/23/19 07:48 36.7 C 81 16 97/66 L 92 09/23/19 03:43 36.9 C 58 L 17 128/64 09/23/19 03:42 108 H 16 91 (1) Sepsis Sepsis type: sepsis due to unspecified organism Sepsis acute organ dysfunction status: with acute organ dysfunction Severe sepsis acute organ dysfunction type: acute respiratory failure Acute respiratory failure type: with hypoxia Severe sepsis shock status: without septic shock Qualified Code(s): A41.9 - Sepsis, unspecified organism; R65.20 - Severe sepsis without septic shock; J96.01 - Acute respiratory failure with hypoxia (2) Rheumatoid arthritis Rheumatoid arthritis location: unspecified site Rheumatoid factor presence: unspecified presence Qualified Code(s): M06.9 - Rheumatoid arthritis, unspecified (3) Hypertension Hypertension type: essential hypertension Qualified Code(s): I10 - Essential (primary) hypertension (4) Anemia Anemia type: due to chronic kidney disease Chronic kidney disease stage: stage 4 (severe) Qualified Code(s): N18.4 - Chronic kidney disease, stage 4 (severe); D63.1 - Anemia in chronic kidney disease
--- NOTE | 2019-09-23 17:29 | Progress Notes ---
DATE: 09/23/2019 NEPHROLOGY PROGRESS NOTE SUBJECTIVE: No new issues. The patient seems to have made some progress and she is now out of ICU. Denies any symptoms. Urine output is good and she no longer has hematuria like yesterday. OBJECTIVE: VITAL SIGNS: Blood pressure is 158/79, pulse rate 54, temperature 36.8, 98% on 2 liters nasal cannula. CHEST: Bilateral decreased breath sounds, poor inspiratory effort. CARDIOVASCULAR: S1, S2 regular. ABDOMEN: Soft, nontender, obese. EXTREMITIES: Show trace edema. LABORATORY TESTS: From this morning shows creatinine of 3.48, BUN is 87. Sodium 144, potassium 4.5. Phosphorus 5.2, magnesium 2.5. ASSESSMENT AND PLAN: A 74-year-old female with history of diastolic congestive heart failure, obstructive sleep apnea, chronic obstructive pulmonary disease as well as chronic kidney disease stage IV, presented to the hospital with respiratory failure with hypoxia, possibly related with pneumonia as well as component of pulmonary edema. Acute renal failure: The acute component is minimal as this appears to be predominantly chronic kidney disease. Even at baseline, her creatinine is about 2.9 and the current creatinine is about 3.5. Her fluid status is somewhat difficult to assess, but I do not think she is volume depleted at this time. If anything, she has some degree of fluid overload/congestive heart failure, but she is not in any distress, so I will hold off on the diuretics for 1 more day. Renal function has been stable now for 2 days, so hopefully she will not need dialysis at this time, but she is pretty close to needing long-term chronic maintenance hemodialysis in the coming months. No further workup is needed. Continue daily laboratories. Continue input output charting.
[2019-09-23] MEDS: TERAZOSIN HCL 5 MG CAP PO SCH (22:10)
[2019-09-23] MEDS: PRAVASTATIN SOD 40 MG TAB PO SCH (22:11)
[2019-09-23] MEDS: PRAMIPEXOLE DIHYDROCHLO 0.25 MG TAB PO SCH (22:11)
[2019-09-23] MEDS: MELATONIN 3 MG TAB PO SCH (22:23)
[2019-09-24] MEDS: LEVOTHYROXINE SODIUM 125 MCG TABLET PO SCH (05:40)
[2019-09-24] MEDS: HEPARIN SODIUM (PORCINE) 7,500 UNITS in SYRINGE 0 ML SQ SCH ×3 (05:54→21:33)
[2019-09-24 06:28] LABS: Basophils # (auto) 0.01 K/uL (0-0.2); Basophils % (auto) 0.1 %; Eosinophils # (auto) 0.04 K/uL (0-0.5); Eosinophils % (auto) 0.3 %; Hematocrit (blood only) 25.1 % (37-47); Hemoglobin 7.8 g/dL (12.0-16.0); Immature Granulocytes # (auto) 0.17 K/uL (0.00-0.02); Immature Granulocytes % (auto) 1.4 %; Lymphocytes # (auto) 1.44 K/uL (1.2-3.4); Lymphocytes % (auto) 12.2 %; Mean Corpuscular Hemoglobin 28.1 pg (25-34); Mean Corpuscular Hgb Conc 31.1 g/dL (32-36); Mean Corpuscular Volume 90.3 fL (80-100); Mean Platelet Volume 11.1 fL (7.4-10.4); Monocytes # (auto) 1.47 K/uL (0.11-0.59); Monocytes % (auto) 12.5 %; Neutrophils # (auto) 8.64 K/uL (1.4-6.5); Neutrophils % (auto) 73.5 %; Nucleated RBC # (auto) 0.03 K/uL (0-0); Nucleated RBC % (auto) 0.3 %; Platelet Count 243 K/uL (130-400); RDW Coefficient of Variation 13.9 % (11.5-14.5); RDW Standard Deviation 46.4 fL (36.4-46.3); Red Blood Count 2.78 M/uL (4.2-5.4); White Blood Count 11.77 K/uL (4.8-10.8)
[2019-09-24 07:08] LABS: Calcium 7.3 mg/dl (8.5-10.1); Creatinine Clr Calc Pharmacy 19.3 ml/min; Est GFR (African American) 16.3; Est GFR (Non-African American) 14.1; Magnesium 2.2 mg/dl (1.8-2.4); Phosphorus 4.2 mg/dl (2.5-4.9); Potassium 3.7 mmol/L (3.5-5.1)
[2019-09-24 07:13] LABS: RBC Morphology Unremarkable
[2019-09-24] MEDS: ISOSORBIDE MONO EXTENDED REL 30 MG TABCR PO SCH (07:53)
[2019-09-24] MEDS: AMLODIPINE BESYLATE 5 MG TAB PO SCH (07:53)
[2019-09-24] MEDS: CHOLECALCIFEROL 1,000 UNITS 25 MCG TAB PO SCH (07:54)
[2019-09-24] MEDS: methylPREDNISolone 30 MG in SYRINGE 0 ML IV SCH (07:55)
[2019-09-24] MEDS: CARBIDOPA/LEVODOPA 25/100MG TAB PO SCH ×3 (07:55→16:24)
[2019-09-24] MEDS: buPROPion HCl 75 MG TABLET PO SCH ×2 (07:55→20:36)
[2019-09-24] MEDS: VENLAFAXINE HCL XR 75 MG CAPXR PO SCH (07:56)
[2019-09-24] MEDS: ASPIRIN 81 MG ECTAB PO SCH (07:56)
[2019-09-24] MEDS: OXYBUTYNIN CHLORIDE XL 5 MG TABCR PO SCH (07:56)
[2019-09-24] MEDS: CYANOCOBALAMIN 500 MCG TABLET (VITAMIN B-12) PO SCH (07:57)
[2019-09-24] MEDS: BETAHISTINE 16 MG PO SCH ×2 (07:58→20:37)
[2019-09-24] MEDS: PREGABALIN 75 MG CAP PO SCH ×2 (08:05→20:36)
--- NOTE | 2019-09-24 09:07 | Pharmacy Report ---
Pharmacy Abx Dose Short Note - Date of Service September 24, 2019 - Assessment & Plan Assessment 74 year old F receiving vancomycin for treatment of pneumonia/bacteremia Day # 4 of antimicrobial therapy. Plan Vancomycin * Random level this am came back at ~21 mcg/ml - goal 15-20 mcg/ml * Plan to continue to dose by levels d/t unstable renal function * Will dose with vancomycin 500 mg x 1 later today when estimated level <20 mcg/ml * Plan to reorder a random level tomorrow AM to assist with further dosing. Estimated level tomorrow still >15 mcg/ml * Initial blood cultures with coag neg staph - possibly contaminant, repeat blood cultures pending / likely could deescalate once they return Pharmacy will continue to follow and will adjust dose/frequency as necessary. Thank you.
[2019-09-24] MEDS: CEFEPIME 2,000 MG in SYRINGE 7.5 ML IV SCH (12:28)
--- NOTE | 2019-09-24 13:46 | Progress Notes ---
DATE: 09/24/2019 NEPHROLOGY PROGRESS NOTE SUBJECTIVE: No new issues. Overall, stable vital signs. She is making urine. OBJECTIVE: VITAL SIGNS: Blood pressure is 131/62, pulse rate 63, temperature 36.5, 95% on nasal cannula 1 liter. HEENT: Mucous membranes moist. NECK: Supple. No jugular venous distention. CHEST: Bilaterally clear to auscultation. CARDIOVASCULAR: S1 and S2 regular. ABDOMEN: Soft, nontender, obese. EXTREMITIES: Show trace to 1+ edema. LABORATORY TESTS: From this morning show somewhat improved kidney function. Creatinine is 3.13, BUN is 88. Sodium 141, potassium 3.7, calcium 7.3. ASSESSMENT AND PLAN: A 74-year-old female with history of diastolic congestive heart failure, obstructive sleep apnea, chronic obstructive pulmonary disease as well as chronic kidney disease stage IV, presented to the hospital with respiratory failure with hypoxia, possibly related with pneumonia as well as a component of pulmonary edema. Acute renal failure: The acute component is minimal and this appears to be predominantly chronic kidney disease. Even at baseline, her creatinine is about 2.9 and the current creatinine is just above 3. Fluid status is somewhat difficult to assess, but I do not think she is volume depleted at this time. If anything, she has some degree of fluid overload/congestive heart failure, but she is not in any distress at this time. We will restart diuretics from tomorrow. She does not need dialysis at this time, but she is close to needing long-term chronic maintenance hemodialysis in the coming months.
[2019-09-24] MEDS ORDERED: VANCOMYCIN HCL 500 MG in 0.9 % SODIUM CHLORIDE 100 ML IV ONE (14:00)
--- NOTE | 2019-09-24 15:09 | Hospitalist Progress Note ---
Date of Service September 24, 2019 Assessment & Plan (1) Sepsis: Completely resolved, stable vitals, no fever or chills, no cough or hypoxia respiratory status at baseline on 2 L 02 , no fever or chills Admitted with sepsis, source of infection, possible multi-focal pneumonia/community-acquired pneumonia COVID-19 negative, bio fire negative on IV cefepime and vanco blood culture on 09/21/19 one bottle coag negative staph -possible contamination Repeat blood culture no growth, IV antibiotic discontinued patient will be started on oral meds p.o. Augmentin (2) Acute respiratory failure: resolved , at baseline resp status presnted with acute on chronic respiratory failure with hypoxia due to multifocal pneumonia at baseline pt has COPD, RENÉ/OHV on CPAP with nocturnal hypoxemia on 2LPM oxygen, presented with hypoxia , respiratory failure , required non invasive respiratory support, ICU admission And well in telemetry on broad-spectrum antibiotic for pneumonia, will deasclate abx as as above pt improving clinically (3) Pneumonia: Treatment as outlined above (4) Elevated troponin: Likely related to demand ischemia in setting of sepsis, no evidence of acute coronary event , no complain of chest pain or shortness of breath , on hemodynamic instability Resumed home meds of aspirin, Imdur (5) Parkinson disease: On Sinemet (6) Rheumatoid arthritis: was previously on sulfasalazine, but this was stopped in July 2019 secondary to worsening kidney function. no acute issue at present (7) DM type 2 (diabetes mellitus, type 2): A1c was 5.1 in Mar 2019. She is diet controlled. (8) Chronic diastolic heart failure: Recent echocardiogram done on 09/04/2019,: Grade 1 diastolic dysfunction, EF 50-55% Stable volume status, Renal function proved to baseline, appreciate input from nephrology Diuretics/Lasix resumed on discharge (9) CKD (chronic kidney disease), stage IV: Acute renal failure on CKD stage IV, with hypernatremia secondary to dehydration/sepsis diuretics is on hold , creatinine improved to baseline, normal electrolytes, sodium level nephro consult requested , appreciate input Avoid nephrotoxic agents and renally dose meds as needed. (10) Hypertension: Outpatient antihypertensive resumed, 6 will be resumed on discharge (11) Anemia: Likely multifactorial etiology including ACD, anemia of CKD and iron deficiency. hb 7.8 cont to monitor transfusion for hb < 7 or symptoms (12) LBBB (left bundle branch block): chronic (13) Morbid obesity: (14) DVT prophylaxis: sub q heparin Full Code Disposition: at baseline , pt is wheel chair /power chair bound Patient has home health home PT arrangements Plan to discharge home tomorrow if medically stable Admission and Anticipated Discharge Date Admission Date: September 21, 2019 Subjective Patient continues to do well, no cough, no fever or chills On 2 L oxygen via nasal cannula very anxious to be discharged home Review of Systems Review of Systems: All systems reviewed & are unremarkable except as noted in HPI & below Physical Exam Constitutional: + obese; no acute distress Eyes: PERRL, conjunctivae normal, anicteric sclerae ENMT: external ear and nose normal, oropharynx normal Neck: trachea midline, no thyromegaly Respiratory: no respiratory distress, no labored breathing and no cough Auscultation: no crackles, no rales, no rhonchi and no wheezes Cardiovascular: RRR, no murmur, no edema Gastrointestinal (Abdomen): Inspection/Auscultation: normal bowel sounds Percussion/Palpation: abdomen soft; abdomen nontender Neurologic: PERRL, EOMI, accommodation nl, no face palsy, no dysarthria Psychiatric: A+Ox3, euthymic affect Results & Data Results & Data ([facility]) Vital Signs (Past 12 Hours) Vital Signs Temp Pulse Pulse Resp BP Pulse Ox 09/24/19 11:48 36.5 C 63 19 131/62 95 09/24/19 07:56 36.7 C 73 20 133/61 92 09/24/19 03:35 60 25 H 99 (1) Rheumatoid arthritis Rheumatoid arthritis location: unspecified site Rheumatoid factor presence: unspecified presence Qualified Code(s): M06.9 - Rheumatoid arthritis, unspecified (2) Anemia Anemia type: due to chronic kidney disease Chronic kidney disease stage: stage 4 (severe) Qualified Code(s): N18.4 - Chronic kidney disease, stage 4 (severe); D63.1 - Anemia in chronic kidney disease (3) Sepsis Acute respiratory failure type: with hypoxia Sepsis acute organ dysfunction status: with acute organ dysfunction Sepsis type: sepsis due to unspecified organism Severe sepsis acute organ dysfunction type: acute respiratory failure Severe sepsis shock status: without septic shock Qualified Code(s): A41.9 - Sepsis, unspecified organism; R65.20 - Severe sepsis without septic shock; J96.01 - Acute respiratory failure with hypoxia (4) Hypertension Hypertension type: essential hypertension Qualified Code(s): I10 - Essential (primary) hypertension
[2019-09-24] MEDS: TERAZOSIN HCL 5 MG CAP PO SCH (20:36)
[2019-09-24] MEDS: PRAMIPEXOLE DIHYDROCHLO 0.25 MG TAB PO SCH (20:36)
[2019-09-24] MEDS: PRAVASTATIN SOD 40 MG TAB PO SCH (20:36)
[2019-09-24] MEDS: MELATONIN 3 MG TAB PO SCH (21:34)
[2019-09-25] MEDS: HEPARIN SODIUM (PORCINE) 7,500 UNITS in SYRINGE 0 ML SQ SCH (05:37)
[2019-09-25] MEDS: LEVOTHYROXINE SODIUM 125 MCG TABLET PO SCH (05:37)
[2019-09-25 07:23] LABS: Creatinine Clr Calc Pharmacy 20.7 ml/min; Est GFR (African American) 17.6; Est GFR (Non-African American) 15.2
[2019-09-25] MEDS: PREGABALIN 75 MG CAP PO SCH (08:07)
[2019-09-25] MEDS: CARBIDOPA/LEVODOPA 25/100MG TAB PO SCH ×2 (08:07→11:30)
[2019-09-25] MEDS: ISOSORBIDE MONO EXTENDED REL 30 MG TABCR PO SCH (08:07)
[2019-09-25] MEDS: CYANOCOBALAMIN 500 MCG TABLET (VITAMIN B-12) PO SCH (08:08)
[2019-09-25] MEDS: ASPIRIN 81 MG ECTAB PO SCH (08:08)
[2019-09-25] MEDS: VENLAFAXINE HCL XR 75 MG CAPXR PO SCH (08:08)
[2019-09-25] MEDS: AMLODIPINE BESYLATE 5 MG TAB PO SCH (08:08)
[2019-09-25] MEDS: OXYBUTYNIN CHLORIDE XL 5 MG TABCR PO SCH (08:09)
[2019-09-25] MEDS: BETAHISTINE 16 MG PO SCH (08:10)
[2019-09-25] MEDS: buPROPion HCl 75 MG TABLET PO SCH (08:10)
[2019-09-25] MEDS: CHOLECALCIFEROL 1,000 UNITS 25 MCG TAB PO SCH (08:10)
[2019-09-25] MEDS ORDERED: AMOXICILLIN/CLAVULANATE 500 MG TAB PO SCH (10:30)
--- NOTE | 2019-09-25 15:06 | Progress Notes ---
DATE: 09/25/2019 SUBJECTIVE: No new issues. Overall, vital signs stable. She is making urine. OBJECTIVE: VITAL SIGNS: Blood pressure 135/64, pulse rate 64, temperature 36.5, 94% on 2 liter nasal cannula. HEENT: Mucous membrane moist. NECK: Supple. No jugular venous distention. CHEST: Bilaterally clear to auscultation. CARDIOVASCULAR: S1, S2, regular. ABDOMEN: Soft, nontender. EXTREMITIES: Shows trace edema. LABORATORY TESTS: From this morning reviewed and shows renal function improved even further. Creatinine is now down to 2.93, sodium 141. ASSESSMENT AND PLAN: A 74-year-old female with history of diastolic congestive heart failure, obstructive sleep apnea, chronic obstructive pulmonary disease as well as chronic kidney disease stage IV, presented to the hospital with respiratory failure with hypoxia, possibly related with pneumonia as well as a component of pulmonary edema. Acute renal failure: Acute component is minimal and predominantly chronic kidney disease. Current creatinine of 2.93 is pretty much her baseline. At this point, she can be restarted on her regular dose of diuretics and should be continued as discharged.
--- NOTE | 2019-09-25 17:44 | Discharge Summary ---
Date of Service September 25, 2019 Admission HPI Per Admitting Provider The patient is a 74-year-old female with diabetes, hypothyroidism, RENÉ on CPAP, COPD, heart failure with preserved ejection fraction, hypertensive heart disease with chronic diastolic congestive heart failure, hypertension, GUZMÁN, morbid obesity, restless leg syndrome, parkinsonism, Mnire's disease who presents in acute respiratory failure. She was recently admitted for 5 days 1 month ago for pneumonia. Since that time at home reports she has been doing well and ambulating and mentating at baseline. At baseline she ambulates with a walker and maximum assistance. She has physical and occupational therapist that come to her home as well as a [facility] nurse. Over the past 2 days her reports she was somnolent and falling asleep in her wheelchair slumped over. She had remained somnolent without any coughing fevers or obvious chills during that time. He was able to get medications into her yesterday but reports that overnight around 3:00 he woke up to find her CPAP mask was off her face and her oxygen saturation was 77%. He placed her CPAP mask back on and held it in place until approximately 9:00. During this time we continue to titrate up her supplemental oxygen and noticed her oxygen saturation continued to decline despite this. He called the [facility] nurse who came and assessed the patient, and recommended EMS transport to the hospital. Temperature was noted to be mildly elevated at 100.9 degrees F. Upon arrival work-up included a chest x-ray revealing multifocal pneumonia. COVID test is pending. Of note she was COVID negative last month but has had multiple family visitors as well as medical driver in her home since that time. states she has had no medications today as it was unsafe for her to swallow given her somnolence. He otherwise denies any other overt symptoms and the patient is obtunded, in respiratory distress on BiPAP, and subsequently unable to give a history. Recent medication changes per included the addition of Imdur 30 mg daily, will try and see in vitamin D3 daily. Upon prior discharge, Lasix was also increased slightly. Other notable history includes a fall with intracranial head trauma in early April 2019 requiring transfer to [facility]. Per report she was monitored without any neurosurgical intervention. She was subsequently discharged to [facility] for rehab and then was sent home. Since that time she has been virtually bedbound but is able to stand and pivot with max assist. She is on nocturnal oxygen at 2 L/min through her CPAP. She is a prior smoker who quit 15 years ago with a [id number] history. She does not use alcohol per 's report. she also has had a progressive decline in renal function, which is felt to be due to diuretic burden vs. underling childhood renal disease vs. possible IgA nephropathy per Dr. Tobar ([facility]). Principal Diagnosis Acute respiratory failure, sepsis secondary to multifocal pneumonia Acute renal failure on CKD stage III, resolved History of Parkinson's disease Type 2 diabetes Discharge Exam Constitutional + obese; no acute distress Eyes PERRL, conjunctivae normal, anicteric sclerae ENMT external ear and nose normal, oropharynx normal Neck trachea midline, no thyromegaly Respiratory no respiratory distress, no labored breathing and no cough Auscultation: no crackles, no rales, no rhonchi and no wheezes Cardiovascular RRR, no murmur, no edema Gastrointestinal (Abdomen) Inspection/Auscultation: normal bowel sounds Percussion/Palpation: abdomen soft; abdomen nontender Neurologic PERRL, EOMI, accommodation nl, no face palsy, no dysarthria Psychiatric A+Ox3, euthymic affect Discharge Data Allergies Allergy/AdvReac Type Severity Reaction Status Date / Time No Known Allergies Allergy Verified 09/21/19 12:55 Consultations 09/21/19 14:00 ED Decision to Admit Stat 09/21/19 16:41 Consult Case Management - Discharge Planning Routine Consult Sheet Metal Lay Out Worker Routine 09/22/19 09:58 Consult Nephrology Routine 09/23/19 15:52 HIM [Consult Health Information Management] Routine Hospital Course (1) Sepsis: Completely resolved, stable vitals, no fever or chills, no cough or hypoxia respiratory status at baseline on 2 L 02 , no fever or chills Admitted with sepsis, source of infection, possible multi-focal pneumonia/community-acquired pneumonia COVID-19 negative, bio fire negative on IV cefepime and vanco blood culture on 09/21/19 one bottle coag negative staph -possible contamination Repeat blood culture no growth, IV antibiotic discontinued Started on p.o. Augmentin complete total 7 days of treatment (2) Acute respiratory failure: resolved , at baseline resp status presnted with acute on chronic respiratory failure with hypoxia due to multifocal pneumonia at baseline pt has COPD, RENÉ/OHV on CPAP with nocturnal hypoxemia on 2LPM oxygen, presented with hypoxia , respiratory failure , required non invasive respiratory support, ICU admission And well in telemetry Is discharged home with p.o. Augmentin (3) Pneumonia: Treatment as outlined above (4) Elevated troponin: Likely related to demand ischemia in setting of sepsis, no evidence of acute coronary event , no complain of chest pain or shortness of breath , on hemodynamic instability Resumed home meds of aspirin, Imdur (5) Parkinson disease: On Sinemet (6) Rheumatoid arthritis: was previously on sulfasalazine, but this was stopped in July 2019 secondary to worsening kidney function. no acute issue at present (7) DM type 2 (diabetes mellitus, type 2): A1c was 5.1 in Mar 2019. She is diet controlled. (8) Chronic diastolic heart failure: Recent echocardiogram done on 09/04/2019,: Grade 1 diastolic dysfunction, EF 50-55% Stable volume status, Renal function proved to baseline, appreciate input from nephrology Diuretics/Lasix resumed on discharge (9) CKD (chronic kidney disease), stage IV: Acute renal failure on CKD stage IV, with hypernatremia secondary to dehydration/sepsis diuretics is on hold , creatinine improved to baseline, normal electrolytes, sodium level nephro consult requested , appreciate input Avoid nephrotoxic agents and renally dose meds as needed. (10) Hypertension: Outpatient antihypertensive resumed, 6 will be resumed on discharge (11) Anemia: Likely multifactorial etiology including ACD, anemia of CKD and iron deficiency. Hemoglobin remains at baseline (12) LBBB (left bundle branch block): chronic (13) Morbid obesity: (14) DVT prophylaxis: sub q heparin Full Code Disposition: Stable to be discharged home with home health home PT Total Time Total Time Spent Total Time Spent (In Minutes): 35 minutes Total Time Includes: Examination of the Patient, Discharge Planning and M edication Reconciliation Discharge Plan Discharge Items Patient Disposition: Home - Home Health Services Reason For Visit: ACUTE RESPIRATORY FAILURE Discharge Diagnosis: Acute respiratory failure, sepsis secondary to multifocal pneumonia Acute renal failure on CKD stage III, resolved History of Parkinson's disease Type 2 diabetes Activity: Resume your previous activity Non-emergency contact: Primary Care Provider Call non-emergency contact if: you have any medication questions Follow-up/Referrals: Bella Power MD [Primary Care Provider] - Diet: Carb Consistent or DM2 and Heart Healthy Addtl Attending Provider Instructions: Hospital follow-up with family physician in a week, office will call with appointment Pending Studies at Discharge: No Stand-Alone Forms: My [facility] VODECLIC, Smoking Cessation Medications and DC Order Prescriptions: New amoxicillin-pot clavulanate 500-125 mg Tablet 1 tab PO BIDM 3 Days Qty: 6 RF: 0 Continued pravastatin [Pravachol] 40 mg Tablet 40 mg PO HS RF: 0 Betahistine Hydrochloride 16 mg PO BID RF: 0 amlodipine 5 mg tablet 5 mg PO QAM RF: 0 carbidopa-levodopa 25-100 mg tablet 1 tab PO TIDM RF: 0 melatonin 10 mg Capsule 10 mg PO HS RF: 0 cyanocobalamin (vitamin B-12) [Vitamin B-12] 1,000 mcg Tablet 1,000 mcg PO QAM RF: 0 levothyroxine 125 mcg tablet 125 mcg PO QAM RF: 0 pregabalin [Lyrica] 200 mg capsule 200 mg PO BID Qty: 60 RF: 0 terazosin 5 mg capsule 5 mg PO HS RF: 0 venlafaxine 75 mg capsule,extended release 24hr 75 mg PO QAM RF: 0 potassium chloride 20 mEq tablet,ER particles/crystals 20 meq PO QAM RF: 0 bupropion HCl 75 mg tablet 75 mg PO BID RF: 0 pramipexole 0.25 mg tablet 0.25 mg PO HS RF: 0 furosemide 40 mg tablet 60 mg PO BID17 30 Days Qty: 90 RF: 0 aspirin 81 mg Tablet,Delayed Release (Dr/Ec) 81 mg PO DAILY RF: 0 meclizine 25 mg Tablet 25 mg PO TID PRN (Reason: Dizziness) RF: 0 oxybutynin chloride 5 mg tablet extended release 24hr 5 mg PO DAILY RF: 0 cholecalciferol (vitamin D3) [Vitamin D3] 125 mcg (5,000 unit) Tablet 125 mcg PO DAILY RF: 0 Vitron-C 65 mg iron- 125 mg Tablet,Delayed Release (Dr/Ec) 1 tab PO DAILY RF: 0 isosorbide mononitrate 30 mg tablet extended release 24 hr 30 mg PO DAILY RF: 0 hydralazine 25 mg tablet 25 mg PO TID RF: 0 Discharge Orders: Discharge Order (Routine); Ordered 09/25/19 Ordered By: Natalya Martinez Admission Data Admit Date/Time: 09/21/19 15:14 Attending Provider: Natalya Martinez Admit Provider: Margo Guillen Primary Care Provider: Bella Power Other Providers: Margo Guillen ; Carmine Schaefer ; Erica Tobar ; Walter Baig Elissa R. ; Sofia Sinclair ; Kevin Bruce ; [facility] Other Interventions: Discharge Summary Assessment (RN) Last Done: 09/25/19 13:23 DC Date/Time DO NOT enter until pt leaves facility: 09/25/19 14:23
== END 2019-09-25 14:23 | disposition home health service (06) | DRG 871 ==
LOC: ED 12:09 → SUATTDRO 15:14 → 1E 15:14 → 2S 09-22 11:00

== ENCOUNTER 2019-10-14 17:26 | Inpatient (IN) ==
--- NOTE | 2019-10-14 18:03 | Emergency Department Note ---
Impression & Plan Acute anemia, Acute on chronic renal failure ED Provider Note Provider: Kennedy Finch MD DATE OF SERVICE: 10/14/2019 CHIEF COMPLAINT: Referred by for lab abnormality HISTORY OF PRESENT ILLNESS: Patient is a 74-year-old female with an extensive past medical history including recent multifocal pneumonia and sepsis, COPD, CKD, Parkinson's disease, diabetes, heart failure who presents with her today called from home due to laboratory abnormalities. Evidently had outpatient blood work today was undergoing evaluation by nephrology for Procrit injections. Laboratory studies revealed significantly hemoglobin of 6.8 down from previous baseline of around 7.8 during her last admission to beginning of the month. Also shows evidence of a creatinine of 4.1 higher than her previous recent baseline in the mid to low threes. Patient herself has been noting some bruising particular in her lower back but denies any significant falls. She is very hard of hearing. Denies significant weakness and states she is been eating and drinking okay. Denies any recent bloody or black stools over the last 2 weeks. Prior to then she states there may been some black stools. Denies recen t bleeding. Is maintained on 81 aspirin. Denies shortness of breath at this time or fever reported. REVIEW OF SYSTEMS: A total of 10 review of systems was obtained and negative except as stated above in the HPI. PAST MEDICAL HISTORY: As noted above MEDICATIONS: Reviewed medication list was significant lewd aspirin 81 mg SOCIAL HISTORY: Currently resides at home with her , former smoker PHYSICAL EXAM: GENERAL: alert and oriented in no acute distress on stretcher but required 2 person assist into the bed from wheelchair Head: normocephalic and atraumatic EYES: No injection, discharge or icterus. NECK: Trachea midline. Supple. ENT: Mucous membranes pink and moist. LUNGS: Airway patent. No retractions. Breath sounds clear with diminished bases HEART: Irregular rate and rhythm. No chest wall tenderness ABDOMEN: Soft and non-tender, without guarding or rebound. BACK: There is some lower lumbar back contusion noted without significant tenderness. SKIN: Acyanotic, warm, dry, scattered contusions the lower back and upper shoulders are noted. EXTREMITIES: Without significant tenderness with 2+ edema of the bilateral lower extremities. NEUROLOGICAL: No focal deficits. No aphasia. No facial droop or slurred speech. EK bpm sinus rhythm with occasional PVC. Left bundle branch block is notable. No acute ST segment elevation or depressions notable. QTC of 544 not ed. Compared to previous from September 21 of this year QTC is longer now with PVCs. Compared to previous from September [id number] now with PVCs and QTC is longer. CONTINUOUS CARDIAC MONITORING: was ordered and showed a heart rate of 92 bpm in normal sinus rhythm with occasional PVCs HOSPITAL COURSE: 1735 Patient was first seen and H&P performed. 1914 Patient reassessed and updated. Patient was resting in bed. Discussed with her lab findings and again she was in agreement for transfusion was ordered at this time. Will discuss with the hospitalist further inpatient monitoring. 1934 discussed with the [facility] hospitalist group. Patient's laboratory studies and imaging reviewed. Differential includes Infection, dehydration, metabolic abnormality, hypo/hyperglycemia, electrolyte disturbance, anemia, hypoxia, cardiac sources, intracerebral event, toxicologic, neurologic, as well as other pathologies. IMPRESSION/MEDICAL DECISION MAKING: Patient presents here today referred due to anemia as well as worsening renal function noted on outpatient laboratory studies. Patient without severe sy mptomatology. I doubt is acutely infectious. Denies active bleeding at this time. Is on 81 aspirin. Does have some contusions noted on her lower back and upper shoulders but denies significant trauma. Does have history of chronic anemia as well as chronic kidney disease. Concerned this may be worsening. Consented for blood. Repeat labs are ordered. EKG shows some QTC lengthening as well as PVCs. Chest x-ray per radiology shows concerning findings for some pulmonary edema. Patient denies real shortness of breath at this time and is stable on room air. Given the anemia noted patient and were consented for unit of blood and 1 unit of blood for transfusion of packed red blood cells was ordered. Patient require ongoing monitoring given this and work-up of her anemia although I believe it is likely related to her renal dysfunction. Ferritin, iron, and TIBC levels were ordered. Kidney function meeting monitor as well as her fluid status given her history of heart failure in the infused volume associated with transfusion. Discussed with the hospitalist further inpatient monitoring at this time. I doubt an acute GI bleed. On reassessment the patient is resting in bed comfortably blood pressure is noted to be somewhat low but she is asymptomatic acutely. Unsure the true accuracy of these readings. DIAGNOSIS: Acute anemia, acute on chronic kidney disease DISPOSITION: Hospitalist will evaluate Patient was agreeable with this plan. Critical Care I have personally spent 31 minutes of critical care time in the direct management of this patient. This includes bedside care, interpretation of diagnostic studies, and testing, discussion with consultants, patient, and family members, and other required patient management activities. These 31 minutes is in excess of all separately billable procedures. Past Med/Surg History Social History Smoking Status: Former smoker Cigarettes Per Day: 0.25ppd; Second Hand Exposure: No; Hx Alcohol Use: No Hx Substance Use: No Preferred Language: Belarusian Communication Ability: Effective Atomic Welder Required: No Beliefs That Will Affect Care: None marital status: Current Living Situation: Spouse Feels Safe at Home: Yes Allergies Allergies Allergy/AdvReac Type Severity Reaction Status Date / Time No Known Allergies Allergy Verified 10/14/19 18:56 Home Meds Home Medications Medication Instructions Recorded Confirmed Betahistine Hydrochloride 16 mg PO BID 11/18/17 10/14/19 pravastatin [Pravachol] 40 mg PO HS 11/18/17 10/14/19 amlodipine 5 mg PO QAM 08/21/18 10/14/19 carbidopa-levodopa 1 tab PO TIDM 08/21/18 10/14/19 cyanocobalamin (vitamin B-12) 1,000 mcg PO QAM 08/21/18 10/14/19 [Vitamin B-12] levothyroxine 125 mcg PO QAM 08/21/18 10/14/19 melatonin 10 mg PO HS 08/21/18 10/14/19 hydralazine 25 mg PO TID 11/18/18 10/14/19 terazosin 5 mg PO HS 04/20/19 10/14/19 bupropion HCl 75 mg PO BID 08/15/19 10/14/19 potassium chloride 20 meq PO QAM 08/15/19 10/14/19 pramipexole 0.25 mg PO HS 08/15/19 10/14/19 venlafaxine 75 mg PO QAM 08/15/19 10/14/19 Vitron-C 1 tab PO DAILY 09/21/19 10/14/19 aspirin 81 mg PO DAILY 09/21/19 10/14/19 cholecalciferol (vitamin D3) 125 mcg PO DAILY 09/21/19 10/14/19 [Vitamin D3] isosorbide mononitrate 30 mg PO DAILY 09/21/19 10/14/19 meclizine 25 mg PO TID PRN 09/21/19 10/14/19 oxybutynin chloride 5 mg PO DAILY 09/21/19 10/14/19 furosemide 80 mg PO BID 10/14/19 10/14/19 levofloxacin 250 mg PO DAILY 10/14/19 10/14/19 metolazone 2.5 mg PO 3XWK 10/14/19 10/14/19 Previous Rx's Medication Instructions Recorded pregabalin [Lyrica] 200 mg PO BID #60 cap 08/28/18 Results & Data (ED) Vital Signs Vital Signs - 24 hr 10/14/19 17:28 10/14/19 17:51 10/14/19 19:15 Temperature 36.6 C Temperature Source Oral Pulse Rate 91 H Pulse Rate [Right] 72 Pulse Rhythm [Right] Regular Pulse Strength [Right] Normal Respiratory Rate 20 16 Respiratory Effort / Characteristics Non-Labored Non-Labored Spontaneous Respiratory Depth Normal Normal Respiratory Pattern Regular Blood Pressure [Right Arm] 94/43 L Blood Pressure Mean [Right Arm] 60 Blood Pressure Position Sitting Blood Pressure Position [Right Arm] Lying Pulse Oximetry 98 93 95 Oxygen Delivery Method Room Air Room Air Oxygen Flow Rate 3 Sepsis Recent Fever Within 48 Hours No Sepsis New/Unexplained Change in Mental Status No Sepsis Action Taken by Nursing No Action Required 10/14/19 19:35 Temperature Temperature Source Pulse Rate Pulse Rate [Right] 72 Pulse Rhythm [Right] Regular Pulse Strength [Right] Normal Respiratory Rate 16 Respiratory Effort / Characteristics Non-Labored Spontaneous Respiratory Depth Normal Respiratory Pattern Blood Pressure [Right Arm] 108/52 L Blood Pressure Mean [Right Arm] 70 Blood Pressure Position Blood Pressure Position [Right Arm] Lying Pulse Oximetry 94 Oxygen Delivery Method Room Air Oxygen Flow Rate Sepsis Recent Fever Within 48 Hours Sepsis New/Unexplained Change in Mental Status Sepsis Action Taken by Nursing Laboratory Data Result diagrams: 10/14/19 18:17 10/14/19 18:17 Lab Results 10/14/19 10/14/19 10/14/19 Range/Units 18:17 18:17 18:17 WBC 10.47 (4.8-10.8) K/uL RBC 2.48 L (4.2-5.4) M/uL Hgb 6.8 L* (12.0-16.0) g/dL Hct 22.2 L (37-47) % MCV 89.5 (80-100) fL MCH 27.4 (25-34) pg MCHC 30.6 L (32-36) g/dL RDW Std Deviation 51.6 H (36.4-46.3) fL RDW Coeff of Bhavin 15.6 H (11.5-14.5) % Plt Count 186 (130-400) K/uL MPV 11.8 H (7.4-10.4) fL Immature Gran % (Auto) 0.9 % Neut % (Auto) 73.9 % Lymph % (Auto) 11.4 % [place] % (Auto) 6.7 % Eos % (Auto) 6.8 % Baso % (Auto) 0.3 % Neut # (Auto) 7.75 H (1.4-6.5) K/uL Lymph # (Auto) 1.19 L (1.2-3.4) K/uL [place] # (Auto) 0.70 H (0.11-0.59) K/uL Eos # (Auto) 0.71 H (0-0.5) K/uL Baso # (Auto) 0.03 (0-0.2) K/uL Immature Gran # (Auto) 0.09 H (0.00-0.02) K/uL Hypochromasia Present PT 10.9 (9.0-12.0) Seconds INR 1.0 (0.9-1.1) Sodium (136-145) mmol/L Potassium (3.5-5.1) mmol/L Chloride (98-107) mmol/L Carbon Dioxide (21-32) mmol/L Anion Gap (3-11) BUN (7-18) mg/dl Creatinine (0.6-1.2) mg/dl Est Cr Clr Drug Dosing Est GFR ( Amer) Est GFR (Non-Af Amer) BUN/Creatinine Ratio (10-20) Glucose (70-99) mg/dl Calcium (8.5-10.1) mg/dl Magnesium (1.8-2.4) mg/dl Iron (35-150) mcg/dl TIBC (250-450) mcg/dl Ferritin (8-388) ng/ml Total Bilirubin (0.2-1) mg/dl AST (15-37) U/L ALT (12-78) U/L Alkaline Phosphatase (45-117) U/L Troponin I (0-0.045) ng/ml Total Protein (6.4-8.2) gm/dl Albumin (3.4-5.0) gm/dl Globulin (2.5-4.0) gm/dl Albumin/Globulin Ratio (0.9-2) TSH (0.300-4.500) uIu/ml Blood Type O Positive Antibody Screen NEGATIVE Crossmatch See Detail 10/14/19 Range/Units 18:17 WBC (4.8-10.8) K/uL RBC (4.2-5.4) M/uL Hgb (12.0-16.0) g/dL Hct (37-47) % MCV (80-100) fL MCH (25-34) pg MCHC (32-36) g/dL RDW Std Deviation (36.4-46.3) fL RDW Coeff of Bhavin (11.5-14.5) % Plt Count (130-400) K/uL MPV (7.4-10.4) fL Immature Gran % (Auto) % Neut % (Auto) % Lymph % (Auto) % [place] % (Auto) % Eos % (Auto) % Baso % (Auto) % Neut # (Auto) (1.4-6.5) K/uL Lymph # (Auto) (1.2-3.4) K/uL [place] # (Auto) (0.11-0.59) K/uL Eos # (Auto) (0-0.5) K/uL Baso # (Auto) (0-0.2) K/uL Immature Gran # (Auto) (0.00-0.02) K/uL Hypochromasia PT (9.0-12.0) Seconds INR (0.9-1.1) Sodium 143 (136-145) mmol/L Potassium 3.9 (3.5-5.1) mmol/L Chloride 111 H (98-107) mmol/L Carbon Dioxide 24 (21-32) mmol/L Anion Gap 8.0 (3-11) BUN 93 H (7-18) mg/dl Creatinine 4.12 H (0.6-1.2) mg/dl Est Cr Clr Drug Dosing Not Reportable Est GFR ( Amer) 11.7 Est GFR (Non-Af Amer) 10.1 BUN/Creatinine Ratio 22.5 H (10-20) Glucose 90 (70-99) mg/dl Calcium 6.5 L (8.5-10.1) mg/dl Magnesium 1.8 (1.8-2.4) mg/dl Iron 22 L (35-150) mcg/dl TIBC 300 (250-450) mcg/dl Ferritin 90.2 (8-388) ng/ml Total Bilirubin 0.3 (0.2-1) mg/dl AST 7 L (15-37) U/L ALT 9 L (12-78) U/L Alkaline Phosphatase 98 (45-117) U/L Troponin I < 0.015 (0-0.045) ng/ml Total Protein 7.7 (6.4-8.2) gm/dl Albumin 3.3 L (3.4-5.0) gm/dl Globulin 4.4 H (2.5-4.0) gm/dl Albumin/Globulin Ratio 0.7 L (0.9-2) TSH 2.310 (0.300-4.500) uIu/ml Blood Type Antibody Screen Crossmatch Discharge Plan Visit Data Chief Complaint: Referred by Doctor Stated Complaint: Referred by Doctor ED Provider: Kennedy Finch Discharge Problem: Acute anemia, Acute on chronic renal failure Forms Stand Alone Forms: My [facility] Prescriptions Prescriptions: No Action pravastatin [Pravachol] 40 mg Tablet 40 mg PO HS RF: 0 Betahistine Hydrochloride 16 mg PO BID RF: 0 amlodipine 5 mg tablet 5 mg PO QAM RF: 0 carbidopa-levodopa 25-100 mg tablet 1 tab PO TIDM RF: 0 melatonin 10 mg Capsule 10 mg PO HS RF: 0 cyanocobalamin (vitamin B-12) [Vitamin B-12] 1,000 mcg Tablet 1,000 mcg PO QAM RF: 0 levothyroxine 125 mcg tablet 125 mcg PO QAM RF: 0 pregabalin [Lyrica] 200 mg capsule 200 mg PO BID Qty: 60 RF: 0 terazosin 5 mg capsule 5 mg PO HS RF: 0 venlafaxine 75 mg capsule,extended release 24hr 75 mg PO QAM RF: 0 potassium chloride 20 mEq tablet,ER particles/crystals 20 meq PO QAM RF: 0 bupropion HCl 75 mg tablet 75 mg PO BID RF: 0 pramipexole 0.25 mg tablet 0.25 mg PO HS RF: 0 aspirin 81 mg Tablet,Delayed Release (Dr/Ec) 81 mg PO DAILY RF: 0 meclizine 25 mg Tablet 25 mg PO TID PRN (Reason: Dizziness) RF: 0 oxybutynin chloride 5 mg tablet extended release 24hr 5 mg PO DAILY RF: 0 cholecalciferol (vitamin D3) [Vitamin D3] 125 mcg (5,000 unit) Tablet 125 mcg PO DAILY RF: 0 Vitron-C 65 mg iron- 125 mg Tablet,Delayed Release (Dr/Ec) 1 tab PO DAILY RF: 0 isosorbide mononitrate 30 mg tablet extended release 24 hr 30 mg PO DAILY RF: 0 metolazone 2.5 mg tablet 2.5 mg PO 3XWK RF: 0 levofloxacin 250 mg tablet 250 mg PO DAILY RF: 0 furosemide 80 mg tablet 80 mg PO BID RF: 0 hydralazine 25 mg tablet 25 mg PO TID RF: 0 Discharge Problem: Acute on chronic renal failure Qualifiers: Acute renal failure type: unspecified Chronic kidney disease stage: stage 5, not on chronic dialysis Qualified Code(s): N17.9 - Acute kidney failure, unspecified
--- NOTE | 2019-10-14 18:30 | XRay Report ---
XR chest 1V portable CLINICAL HISTORY: weakness dyspnea COMPARISON STUDY: 09/22/2019 FINDINGS: Cardiomegaly. Diaphragms are smooth. Diffuse bilateral parenchymal infiltrative change vers us pulmonary edema. IMPRESSION: Pulmonary edema. ACT 112: Negative or not required by law. The above report was generated using voice recognition software. It may contain grammatical, syntax or spelling errors. Electronically signed by: Ortega Gonsales M.D. 10/14/2019 6:28 PM
[2019-10-14 18:45] LABS: Prothrombin Time 10.9 Seconds (9.0-12.0)
[2019-10-14 18:54] LABS: Alanine Aminotransferase 9 U/L (12-78); Albumin Level 3.3 gm/dl (3.4-5.0); Aspartate Aminotransferase 7 U/L (15-37); BUN Creatinine Ratio 22.5 (10-20); Blood Urea Nitrogen 93 mg/dl (7-18); Calcium 6.5 mg/dl (8.5-10.1); Carbon Dioxide 24 mmol/L (21-32); Chloride 111 mmol/L (98-107); Est GFR (African American) 11.7; Est GFR (Non-African American) 10.1; Glucose 90 mg/dl (70-99); Magnesium 1.8 mg/dl (1.8-2.4); Potassium 3.9 mmol/L (3.5-5.1); Sodium 143 mmol/L (136-145)
[2019-10-14 18:55] LABS: Hematocrit (blood only) 22.2 % (37-47); Hemoglobin 6.8 g/dL (12.0-16.0); Mean Corpuscular Hemoglobin 27.4 pg (25-34); Mean Corpuscular Hgb Conc 30.6 g/dL (32-36); Mean Corpuscular Volume 89.5 fL (80-100); Mean Platelet Volume 11.8 fL (7.4-10.4); Platelet Count 186 K/uL (130-400); RDW Coefficient of Variation 15.6 % (11.5-14.5); RDW Standard Deviation 51.6 fL (36.4-46.3); Red Blood Count 2.48 M/uL (4.2-5.4); White Blood Count 10.47 K/uL (4.8-10.8)
[2019-10-14 19:02] LABS: Albumin Globulin Ratio 0.7 (0.9-2); Alkaline Phosphatase 98 U/L (45-117); Bilirubin,Total 0.3 mg/dl (0.2-1); Ferritin 90.2 ng/ml (8-388); Globulin 4.4 gm/dl (2.5-4.0); Iron 22 mcg/dl (35-150); Total Iron Binding Capacity 300 mcg/dl (250-450); Total Protein 7.7 gm/dl (6.4-8.2); Troponin I < 0.015 ng/ml (0-0.045)
[2019-10-14 19:03] LABS: Basophils # (auto) 0.03 K/uL (0-0.2); Basophils % (auto) 0.3 %; Eosinophils # (auto) 0.71 K/uL (0-0.5); Eosinophils % (auto) 6.8 %; Hypochromasia Present; Immature Granulocytes # (auto) 0.09 K/uL (0.00-0.02); Immature Granulocytes % (auto) 0.9 %; Lymphocytes # (auto) 1.19 K/uL (1.2-3.4); Lymphocytes % (auto) 11.4 %; Monocytes % (auto) 6.7 %; Neutrophils # (auto) 7.75 K/uL (1.4-6.5); Neutrophils % (auto) 73.9 %
[2019-10-14] MEDS ORDERED: SODIUM CHLORIDE 0.9% 250 ML IV PRN (19:13)
[2019-10-14] MEDS ORDERED: CALCIUM GLUCONATE 10% 3,000 MG in 0.9 % SODIUM CHLORIDE 100 ML IV STA (21:05)
[2019-10-14] MEDS ORDERED: PANTOprazole 40 MG in SYRINGE 0 ML IV STA (21:06)
[2019-10-14] MEDS ORDERED: ALBUMIN 25% 50 ML with FUROSEMIDE 80 MG IV STA (23:34)
[2019-10-15 00:49] LABS: Basophils # (auto) 0.02 K/uL (0-0.2); Basophils % (auto) 0.2 %; Eosinophils # (auto) 0.72 K/uL (0-0.5); Eosinophils % (auto) 7.8 %; Hematocrit (blood only) 24.7 % (37-47); Hemoglobin 7.9 g/dL (12.0-16.0); Immature Granulocytes # (auto) 0.07 K/uL (0.00-0.02); Immature Granulocytes % (auto) 0.8 %; Lymphocytes % (auto) 9.7 %; Mean Corpuscular Hemoglobin 28.7 pg (25-34); Mean Corpuscular Volume 89.8 fL (80-100); Mean Platelet Volume 11.7 fL (7.4-10.4); Monocytes # (auto) 0.75 K/uL (0.11-0.59); Monocytes % (auto) 8.1 %; Neutrophils # (auto) 6.82 K/uL (1.4-6.5); Neutrophils % (auto) 73.4 %; Platelet Count 152 K/uL (130-400); RDW Coefficient of Variation 15.3 % (11.5-14.5); RDW Standard Deviation 50.1 fL (36.4-46.3); Red Blood Count 2.75 M/uL (4.2-5.4); White Blood Count 9.28 K/uL (4.8-10.8)
[2019-10-15 00:53] LABS: Base Excess ABG -2.6 mEq/L (-9-1.8); HCO3 ABG 23 mmol/L (19-24); Oxygen Saturation ABG 94.9 % (90-95); PCO2 ABG 44 mmHg (35-46); PO2 ABG 88 mmHg (80-95); pH ABG 7.34 (7.35-7.45)
[2019-10-15 00:57] LABS: Allen Test Pos (Pos)
[2019-10-15] MEDS ORDERED: GLUCAGON FOR INJ 1 MG VIAL SQ PRN (00:58)
[2019-10-15] MEDS ORDERED: DEXTROSE 50% 50 ML SYRINGE IV PRN (00:58)
[2019-10-15] MEDS ORDERED: GLUCOSE 40% GEL 15 GM TUBE PO PRN (00:58)
[2019-10-15] MEDS ORDERED: CARBOHYDRATES FOR HYPOGLYCEMIA PO PRN (00:58)
[2019-10-15] MEDS ORDERED: metOLazone 2.5 MG TABLET PO SCH ×2 (00:58→09:00)
[2019-10-15] MEDS ORDERED: PROMETHAZINE HCL 12.5 MG in SODIUM CHLORIDE 0.9% 50 ML IV PRN (00:58)
[2019-10-15] MEDS ORDERED: ACETAMINOPHEN 325 MG TAB PO PRN ×2 (00:58→04:08)
[2019-10-15] MEDS ORDERED: GLUCOSE 10 TABS/TUBE PO PRN (00:58)
[2019-10-15 01:05] LABS: Alanine Aminotransferase 7 U/L (12-78); Albumin Level 3.1 gm/dl (3.4-5.0); Aspartate Aminotransferase 6 U/L (15-37); BUN Creatinine Ratio 22.7 (10-20); Blood Urea Nitrogen 91 mg/dl (7-18); Calcium 6.8 mg/dl (8.5-10.1); Carbon Dioxide 23 mmol/L (21-32); Chloride 112 mmol/L (98-107); Est GFR (African American) 12.1; Est GFR (Non-African American) 10.4; Glucose 90 mg/dl (70-99); Potassium 3.9 mmol/L (3.5-5.1); Sodium 143 mmol/L (136-145)
[2019-10-15 01:08] LABS: Albumin Globulin Ratio 0.8 (0.9-2); Alkaline Phosphatase 86 U/L (45-117); Bilirubin,Total 0.4 mg/dl (0.2-1); Globulin 3.9 gm/dl (2.5-4.0)
--- NOTE | 2019-10-15 01:08 | History & Physical Report ---
Date of Service October 14, 2019 Assessment & Plan (1) Encephalopathy: Multifactorial : Uremia from ESRD Home neuropsychotropic meds contributory Rule out UTI, patient not septic chronic diastolic heart failure (EF 50 to 55%, TTE 2019), pulmonary congestion secondary to cardiorenal syndrome Possible UGIB Acute on chronic anemia, hemoglobin drop from baseline secondary to above hypertension, BP on the lower side RENÉ on CPAP history PE status post anticoagulation RLE cellulitis, patient not septic hx rheumatoid arthritis hx Parkinson's disease DM 2 diet-controlled, well-controlled as of recent hemoglobin A1c of 4.3, August 2019 Persistent left ovarian enlargement on CT rule out mass Possible functional disability given recurrent admissions past tobacco abuse. Medical telemetry Baseline UA Lasix albumin Follow renal function, Nephrology consult Re: ESRD Appropriate to hold home neuropsychotropic meds for now until patient more awake. Neuropsychotropic meds may need dose adjustment for current renal function. Hold Aspirin for now given GI bleed IV PPI for possible UGI bleed GI consult for GI bleed if patient agreeable Transfuse PRBC to maintain hemoglobin greater than 7 Doxycycline for RLE cellulitis ISS BG goal 1 40-1 80 Pelvic ultrasound RE left ovarian enlargement on CT PT OT eval once patient more awake DVT prophylaxis. SCDS RE GI bleed Full code as per Patient's requesting updates from providers Mr. Olson Sonya, contact #[phone]. Text document was generated using [employer] voice recognition software. It may contain grammatical or spelling errors. Kindly contact undersigned for clarification of any documentation item in question. History of Present Illness Primary Care Provider: Bella Rubio MD History obtained from patient, family, and records. Limited history from patient secondary to hearing impairment and lethargy. Medical history significant for chronic diastolic heart failure (EF 50 to 55%, TTE 2019), chronic LBBB, hypertension, hyperlipidemia, RENÉ on CPAP, history PE status post anticoagulation, rheumatoid arthritis, Parkinson's disease, Mnire's disease, anxiety/mood disorder, DM 2 diet-controlled, rheumatoid arthritis as per records, ESRD as per records, hx NAFLD, chronic anemia (baseline hemoglobin 7), history diverticulosis, past tobacco abuse. Recent confinement 3 weeks ago for respiratory failure, sepsis secondary to multifocal pneumonia. Patient discharged on Augmentin course. Patient seen at [facility] Nephrology office last October 04 for ESRD. Markedly worse volume overload over the past few days. Patient to be changed to torsemide if Lasix dosing ineffective. Outpatient vascular surgery referral for fistula creation and anemia clinic referral recommended by specialist. The last 3 days, patient noted to be increasingly weak and tired as per . Sleeping a lot. Patient having trouble standing up. No chest pain, S OB, abdominal complaints as per . Few dark stools noted few weeks ago at home after discharge from the hospital as per . No new home medications. Outpatient hemoglobin drawn today noted to be 6.8. 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 1 unit packed RBC given at the ER. 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, lives with Allergies Allergy/AdvReac Type Severity Reaction Status Date / Time No Known Allergies Allergy Verified 10/14/19 18:56 Home Medications Home Medications Medication Instructions Recorded Confirmed Type Betahistine Hydrochloride 16 mg PO BID 11/18/17 10/14/19 History pravastatin [Pravachol] 40 mg PO HS 11/18/17 10/14/19 History amlodipine 5 mg PO QAM 08/21/18 10/14/19 History carbidopa-levodopa 1 tab PO TIDM 08/21/18 10/14/19 History cyanocobalamin (vitamin B-12) 1,000 mcg PO QAM 08/21/18 10/14/19 History [Vitamin B-12] levothyroxine 125 mcg PO QAM 08/21/18 10/14/19 History melatonin 10 mg PO HS 08/21/18 10/14/19 History pregabalin [Lyrica] 200 mg PO BID #60 cap 08/28/18 10/14/19 Rx hydralazine 25 mg PO TID 11/18/18 10/14/19 History terazosin 5 mg PO HS 04/20/19 10/14/19 History bupropion HCl 75 mg PO BID 08/15/19 10/14/19 History potassium chloride 20 meq PO QAM 08/15/19 10/14/19 History pramipexole 0.25 mg PO HS 08/15/19 10/14/19 History venlafaxine 75 mg PO QAM 08/15/19 10/14/19 History Vitron-C 1 tab PO DAILY 09/21/19 10/14/19 History aspirin 81 mg PO DAILY 09/21/19 10/14/19 History cholecalciferol (vitamin D3) 125 mcg PO DAILY 09/21/19 10/14/19 History [Vitamin D3] isosorbide mononitrate 30 mg PO DAILY 09/21/19 10/14/19 History meclizine 25 mg PO TID PRN 09/21/19 10/14/19 History oxybutynin chloride 5 mg PO DAILY 09/21/19 10/14/19 History furosemide 80 mg PO BID 10/14/19 10/14/19 History levofloxacin 250 mg PO DAILY 10/14/19 10/14/19 History metolazone 2.5 mg PO 3XWK 10/14/19 10/14/19 History Past Med/Surg History Social History Smoking Status: Never smoker Cigarettes Per Day: 0.25ppd; Second Hand Exposure: No; Do You Dip or Chew Tobacco: No; Tobacco Cessation Education Requested by Patient: No Hx Alcohol Use: No Hx Substance Use: No Preferred Language: Guamanian Communication Ability: Effective Communication Ability Comment: very [place] 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 Beliefs That Will Affect Care: None marital status: Current Living Situation: Spouse Current Living Situation Comment: lives in home with and has caregivers Other Information That Helps Us Care for You: No Feels Safe at Home: Yes Safety Concerns: Feels Safe At This Time Review of Systems Review of Systems: Could not be reliably obtained Physical Exam Physical Exam: GENERAL: Lethargic, disoriented, hard of hearing, morbidly obese,, no respiratory distress SKIN: Pallor, warm HEENT: Pale palpebral conjunctivae, no ptosis, dry buccal mucosa NECK : Supple, short neck, no tenderness CHEST : Decreased breath sounds, no tenderness HEART : RRR, no obvious murmurs ABDOMEN: Some distention, nontender BACK : Ecchymotic areas on the low back, no tenderness RECTAL : Intact sphincter, dark stool (FOBT positive) EXTREMITIES : Focal erythema , RLE, no other conspicuous deformities noted NEUROLOGIC : Lethargic, disoriented, no facial asymmetry, no other gross focality Results & Data Results & Data ([facility]) Vital Signs (Past 12 Hours) Vital Signs Temp Pulse Pulse Resp BP BP Pulse Ox 10/14/19 21:58 36.4 C L 85 16 122/62 96 10/14/19 21:30 36.5 C 76 16 108/64 93 10/14/19 20:58 36.4 C L 75 16 113/45 L 96 10/14/19 20:28 36.5 C 71 18 91/49 L 94 10/14/19 20:13 36.5 C 78 16 97/55 L 95 10/14/19 20:11 36.4 C L 68 16 90/50 L 97 10/14/19 19:54 36.6 C 86 16 90/32 L 93 10/14/19 19:35 72 16 108/52 L 94 10/14/19 19:15 72 16 94/43 L 95 10/14/19 17:51 93 10/14/19 17:28 36.6 C 91 H 20 98 Laboratory Results Laboratory Results WBC 9.28 K/uL (4.8-10.8) 10/15/19 00:36 RBC 2.75 M/uL (4.2-5.4) L 10/15/19 00:36 Hgb 7.9 g/dL (12.0-16.0) L 10/15/19 00:36 Hct 24.7 % (37-47) L 10/15/19 00:36 MCV 89.8 fL (80-100) 10/15/19 00:36 MCH 28.7 pg (25-34) 10/15/19 00:36 MCHC 32.0 g/dL (32-36) 10/15/19 00:36 RDW Std Deviation 50.1 fL (36.4-46.3) H 10/15/19 00:36 RDW Coeff of Bhavin 15.3 % (11.5-14.5) H 10/15/19 00:36 Plt Count 152 K/uL (130-400) 10/15/19 00:36 MPV 11.7 fL (7.4-10.4) H 10/15/19 00:36 Immature Gran % (Auto) 0.8 % 10/15/19 00:36 Neut % (Auto) 73.4 % 10/15/19 00:36 Lymph % (Auto) 9.7 % 10/15/19 00:36 [place] % (Auto) 8.1 % 10/15/19 00:36 Eos % (Auto) 7.8 % 10/15/19 00:36 Baso % (Auto) 0.2 % 10/15/19 00:36 Neut # (Auto) 6.82 K/uL (1.4-6.5) H 10/15/19 00:36 Lymph # (Auto) 0.90 K/uL (1.2-3.4) L 10/15/19 00:36 [place] # (Auto) 0.75 K/uL (0.11-0.59) H 10/15/19 00:36 Eos # (Auto) 0.72 K/uL (0-0.5) H 10/15/19 00:36 Baso # (Auto) 0.02 K/uL (0-0.2) 10/15/19 00:36 Immature Gran # (Auto) 0.07 K/uL (0.00-0.02) H 10/15/19 00:36 Hypochromasia Present 10/14/19 18:17 PT 10.9 Seconds (9.0-12.0) 10/14/19 18:17 INR 1.0 (0.9-1.1) 10/14/19 18:17 ABG pH 7.34 (7.35-7.45) L 10/15/19 00:36 ABG pCO2 44 mmHg (35-46) 10/15/19 00:36 ABG pO2 88 mmHg (80-95) 10/15/19 00:36 ABG HCO3 23 mmol/L (19-24) 10/15/19 00:36 ABG O2 Saturation 94.9 % (90-95) 10/15/19 00:36 ABG Base Excess -2.6 mEq/L (-9-1.8) 10/15/19 00:36 Richard Test Pos (Pos) 10/15/19 00:36 Oxygen Given 3L 10/15/19 00:36 Sodium 143 mmol/L (136-145) 10/15/19 00:36 Potassium 3.9 mmol/L (3.5-5.1) 10/15/19 00:36 Chloride 112 mmol/L (98-107) H 10/15/19 00:36 Carbon Dioxide 23 mmol/L (21-32) 10/15/19 00:36 Anion Gap 8.0 (3-11) 10/15/19 00:36 BUN 91 mg/dl (7-18) H 10/15/19 00:36 Creatinine 4.00 mg/dl (0.6-1.2) H 10/15/19 00:36 Est Cr Clr Drug Dosing Not Reportable 10/15/19 00:36 Est GFR ( Amer) 12.1 10/15/19 00:36 Est GFR (Non-Af Amer) 10.4 10/15/19 00:36 BUN/Creatinine Ratio 22.7 (10-20) H 10/15/19 00:36 Glucose 90 mg/dl (70-99) 10/15/19 00:36 Calcium 6.8 mg/dl (8.5-10.1) L 10/15/19 00:36 Magnesium 1.8 mg/dl (1.8-2.4) 10/14/19 18:17 Iron 22 mcg/dl (35-150) L 10/14/19 18:17 TIBC 300 mcg/dl (250-450) 10/14/19 18:17 Ferritin 90.2 ng/ml (8-388) 10/14/19 18:17 Total Bilirubin 0.3 mg/dl (0.2-1) 10/14/19 18:17 AST 6 U/L (15-37) L 10/15/19 00:36 ALT 7 U/L (12-78) L 10/15/19 00:36 Alkaline Phosphatase 98 U/L (45-117) 10/14/19 18:17 Ammonia < 10.0 umol/L (11-32) L 10/15/19 00:36 Troponin I < 0.015 ng/ml (0-0.045) 10/14/19 18:17 Total Protein 7.7 gm/dl (6.4-8.2) 10/14/19 18:17 Albumin 3.1 gm/dl (3.4-5.0) L 10/15/19 00:36 Globulin 4.4 gm/dl (2.5-4.0) H 10/14/19 18:17 Albumin/Globulin Ratio 0.7 (0.9-2) L 10/14/19 18:17 TSH 2.310 uIu/ml (0.300-4.500) 10/14/19 18:17 Blood Type O Positive 10/14/19 18:17 Antibody Screen NEGATIVE 10/14/19 18:17 Crossmatch See Detail 10/14/19 18:[address] head initial read: No ICH, mass-effect or midline shift. Involutional changes and small vessel disease. CT abdomen pelvis: Nonspecific enteritis. Bibasilar infiltrates and scattered nodular densities. Soft tissue edema/induration left flank. Large left ovary consider ultrasound for further evaluation. Small hiatal hernia. Chest x-ray : Pulmonary edema. EKG as per my interpretation : Rate 75, NSR, LBBB, PVCs
[2019-10-15] MEDS: INSULIN ASPART 100 UNITS/ML 3 ML PEN SC SCH ×5 (01:10→20:47)
[2019-10-15 01:16] LABS: Basophilic Stippling 1+; Target Cells 1+
[2019-10-15 02:55] LABS: Appearance Urine Clear (Clear); Bacteria Urine Automated Negative (Negative); Bilirubin Urine Negative (Negative); Blood Urine 3+ (Negative); Cast Urine Automated 0 /lpf (0-5); Color Urine Yellow; Epithelial Cell Urine Auto 0-5 /lpf (0-5); Glucose Urine UA Negative (Negative); Ketones Urine Negative (Negative); Leukocyte Esterase Urine Negative (Negative); Nitrite Urine Negative (Negative); Protein Urine Negative (Negative); Specific Gravity Urine 1.011 (1.000-1.030); Urobilinogen Urine Negative (Negative); WBC Urine Automated 0 /hpf (0-5)
[2019-10-15] MEDS ORDERED: DOXYCYCLINE HYCLATE 100 MG in DEXTROSE 5% 100 ML IV ONE (03:30)
[2019-10-15] MEDS: MICONAZOLE NITRATE POWDER 43 GM EXT SCH ×2 (06:00→20:45)
[2019-10-15] MEDS ORDERED: POTASSIUM CHLORIDE PWD 20 MEQ PACK PO STA (06:06)
[2019-10-15] MEDS ORDERED: MAGNESIUM SULFATE / D5W 1 GM/100 ML BAG IV ONE (06:15)
[2019-10-15] MEDS ORDERED: ALBUMIN 25% 50 ML with FUROSEMIDE 80 MG IV ONE ×2 (06:15→08:00)
[2019-10-15] MEDS ORDERED: CALCIUM GLUCONATE 10% 2,000 MG in SODIUM CHLORIDE 0.9% 50 ML IV ONE (06:20)
[2019-10-15] MEDS: LEVOTHYROXINE SODIUM 125 MCG TABLET PO SCH (06:43)
[2019-10-15 06:45] LABS: Basophils # (auto) 0.01 K/uL (0-0.2); Basophils % (auto) 0.1 %; Eosinophils # (auto) 0.64 K/uL (0-0.5); Eosinophils % (auto) 6.5 %; Hematocrit (blood only) 22.7 % (37-47); Hemoglobin 7.4 g/dL (12.0-16.0); Immature Granulocytes # (auto) 0.05 K/uL (0.00-0.02); Immature Granulocytes % (auto) 0.5 %; Lymphocytes # (auto) 0.66 K/uL (1.2-3.4); Lymphocytes % (auto) 6.7 %; Mean Corpuscular Hemoglobin 28.8 pg (25-34); Mean Corpuscular Hgb Conc 32.6 g/dL (32-36); Mean Corpuscular Volume 88.3 fL (80-100); Mean Platelet Volume 11.8 fL (7.4-10.4); Monocytes # (auto) 1.01 K/uL (0.11-0.59); Monocytes % (auto) 10.2 %; Neutrophils # (auto) 7.54 K/uL (1.4-6.5); Platelet Count 139 K/uL (130-400); RDW Coefficient of Variation 15.1 % (11.5-14.5); RDW Standard Deviation 49.2 fL (36.4-46.3); Red Blood Count 2.57 M/uL (4.2-5.4); White Blood Count 9.91 K/uL (4.8-10.8)
[2019-10-15 07:04] LABS: RBC Morphology Unremarkable
[2019-10-15 07:15] LABS: BUN Creatinine Ratio 22.1 (10-20); Calcium 6.8 mg/dl (8.5-10.1); Creatinine Clr Calc Pharmacy 14.1 ml/min; Est GFR (Non-African American) 10.3; Potassium 3.6 mmol/L (3.5-5.1)
--- NOTE | 2019-10-15 07:15 | CT Scan Report ---
ABDOMEN AND PELVIS CT WITHOUT CONTRAST CT DOSE: 2235.18 mGy.cm HISTORY: Acute bilateral flank pain flank bruising TECHNIQUE: Multiaxial CT images of the abdomen and pelvis were performed without contrast. A dose lo wering technique was utilized adhering to the principles of ALARA. COMPARISON STUDY: CT abdomen and pelvis 04/20/2019 FINDINGS: Trace pleural effusions. Bibasilar groundglass and patchy consolidative opacities with intralobular s eptal thickening. Motion degraded exam. Study is limited without use of IV contrast and also secondar y to upper extremity positioning. There is no pneumatosis or pneumoperitoneum. Moderate cardiomegaly with coronary artery calcifications. Unremarkable spleen, pancreas and adrenal glands. Mild gallbladder distention appears unchanged. Unre markable liver. Calcified plaque the abdominal aorta without aneurysm. No adenopathy. Unremarkable ap pearance of the kidneys. No obstructive uropathy. Mild to moderate urinary bladder distention. Unrema rkable uterus. Asymmetric prominence of the left ovary/adnexum compared to the right redemonstrated, 4.5 x 3.4 cm. Mild distal esophageal wall thickening. Multiple nondilated fluid-filled loops of small bowel are pre sent within the lower abdomen and pelvis. Colonic diverticulosis. Moderate fecal retention. The appen jey is not definitively seen. Subcutaneous edema of the bilateral flank distributions, left greater t baez right. There are a few nodular soft tissue attenuating foci of the subcutaneous left flank measur ing up to 2.3 x 1.4 cm. Demineralized appearance of the bones. Degenerative changes of the spine, pel vis and hips. No acute fracture identified. Additional subcutaneous nodular focus of the left anterio r pelvic wall measures up to 1.6 cm, possibly reflective of an injection granuloma. IMPRESSION: 1. Mild to moderate subcutaneous stranding of the bilateral flank distributions, left greater than ri ght are noted with a few small nodular subcutaneous foci possibly reflective of hematomas on the left . This likely correlates with the reported clinical history of flank bruising. 2. No acute fracture or acute intra-abdominal or intrapelvic abnormality. 3. Cardiomegaly with trace pleural effusions and pulmonary edema. 4. Asymmetric enlargement of the left ovary compared to the right redemonstrated. Correlation with pe lvic ultrasound recommended. 5. Moderate fecal retention. 6. Additional findings as above. ACT 112: Negative or not required by law. The above report was generated using voice recognition software. It may contain grammatical, syntax o r spelling errors. Electronically signed by: Arnoldo Stiles M.D. 10/15/2019 7:14 AM
[2019-10-15 07:28] LABS: Phosphorus 7.1 mg/dl (2.5-4.9)
--- NOTE | 2019-10-15 07:33 | CT Scan Report ---
CT OF THE HEAD WITHOUT CONTRAST CLINICAL HISTORY: Altered mental status. COMPARISON STUDY: Head CT August 15, 2019 TECHNIQUE: Helical axial images of the head were obtained without IV contrast. Automated exposure con trol was utilized for the study. A dose lowering technique was utilized adhering to the principles o f ALARA. FINDINGS: No acute intracranial hemorrhage, midline shift or mass effect is present. The ventricular system is unremarkable. The basilar cisterns are patent. No extra-axial collections are present. Ther e are no findings to suggest acute dural sinus thrombosis or acute territorial infarct. No significan t calvarial abnormalities are present. Postoperative findings within the sinuses are noted. Sinus muc osal thickening is again noted, greatest within the right maxillary sinus. This is similar to CT of 2019. Left sphenoid opacification has improved since prior exam. There is trace fluid within t he bilateral mastoid air cells. IMPRESSION: No acute intracranial findings. ACT 112: Negative or not required by law. Electronically signed by: Bryn Tanner M.D. 10/15/2019 7:32 AM
[2019-10-15] MEDS: VENLAFAXINE HCL XR 75 MG CAPXR PO SCH (07:36)
[2019-10-15] MEDS: ISOSORBIDE MONO EXTENDED REL 30 MG TABCR PO SCH (07:37)
[2019-10-15] MEDS: CARBIDOPA/LEVODOPA 25/100MG TAB PO SCH ×3 (07:37→16:55)
[2019-10-15] MEDS: AMLODIPINE BESYLATE 5 MG TAB PO SCH (07:37)
[2019-10-15] MEDS: CYANOCOBALAMIN 500 MCG TABLET (VITAMIN B-12) PO SCH (07:37)
[2019-10-15] MEDS: CHOLECALCIFEROL 1,000 UNITS 25 MCG TAB PO SCH (07:38)
[2019-10-15] MEDS ORDERED: MICONAZOLE NITRATE POWDER 43 GM EXT SCH (09:00)
--- NOTE | 2019-10-15 09:01 | Gastrointestinal Consultation ---
Date of Consultation October 15, 2019 Assessment & Plan (1) Anemia: Ms. Hassan's anemia is normalcytic in the setting of CKD-4. Her baseline Hb is approx 9. Though she had Hb 6.8 on arrival after one unit of RBCs, she is stable at Hb 7.4 and has not had any gross GI bleeding. She denies any gross GI bleeding and nursing verifies this. She is mildly iron deficient (iron 22). May consider OP EGD, Colonoscopy for mild iron anemia as an OP but there is no urgent need for endoscopy at this ti me. Would defer decision to go forward with EGD/Colonoscopy to pt, family and primary physician as prepping would be difficult for this patient with Parkinson's. Present on Admission?: Yes Supervising Physician Co-Signing Physician Notes I have personally seen and examined the patient with TRINITY Cuevas. Her note reflects my exam and findings. I agree with her impression and plan. No obvious signs of GI bleeding. Patient does have several bruises on body so a hematology work up maybe indicated. No indication for endoscopy at this point. Charles Chambers History of Present Illness Reason for Consultation: GI Bleed Requesting Physician: Dr. Tran Attending Physician: Lilian Tran MD History of Present Illness Ms. Kami Hassan is a 74 yr old female pt of Dr. Bella Villanueva with a hx of CHF, EF 50 - 55%, ESRD, chronic anemia, RENÉ on sleep apnea, Parkinson's, DM- 2. She was brought to the ED yesterday by her as direct by her PCP because OP labs showed a low Hb. On arrival, Hb 6.8, received a unit of RBCs and is 7.4. MCV is normal. Iron is 22, ferritin is 90. GI is being consulted for a GI bleed. On interview and exam, the pt has slow responses, halting speech (Parkinson's) but is able to tell me the name of this facility, why she presented and the month/year.The pt denies any abdominal pain or black stools. She reports her most recent BM was 2 days ago, formed. She denies constipation or diarrhea. On exam, abd is soft, non tender and digital rectal with soft, brown stool in the vault. Allergies Allergy/AdvReac Type Severity Reaction Status Date / Time No Known Allergies Allergy Verified 10/14/19 18:56 Home Medications Home Medications Medication Instructions Recorded Confirmed Type Betahistine Hydrochloride 16 mg PO BID 11/18/17 10/14/19 History pravastatin [Pravachol] 40 mg PO HS 11/18/17 10/14/19 History amlodipine 5 mg PO QAM 08/21/18 10/14/19 History carbidopa-levodopa 1 tab PO TIDM 08/21/18 10/14/19 History cyanocobalamin (vitamin B-12) 1,000 mcg PO QAM 08/21/18 10/14/19 History [Vitamin B-12] levothyroxine 125 mcg PO QAM 08/21/18 10/14/19 History melatonin 10 mg PO HS 08/21/18 10/14/19 History pregabalin [Lyrica] 200 mg PO BID #60 cap 08/28/18 10/14/19 Rx hydralazine 25 mg PO TID 11/18/18 10/14/19 History terazosin 5 mg PO HS 04/20/19 10/14/19 History bupropion HCl 75 mg PO BID 08/15/19 10/14/19 History potassium chloride 20 meq PO QAM 08/15/19 10/14/19 History pramipexole 0.25 mg PO HS 08/15/19 10/14/19 History venlafaxine 75 mg PO QAM 08/15/19 10/14/19 History Vitron-C 1 tab PO DAILY 09/21/19 10/14/19 History aspirin 81 mg PO DAILY 09/21/19 10/14/19 History cholecalciferol (vitamin D3) 125 mcg PO DAILY 09/21/19 10/14/19 History [Vitamin D3] isosorbide mononitrate 30 mg PO DAILY 09/21/19 10/14/19 History meclizine 25 mg PO TID PRN 09/21/19 10/14/19 History oxybutynin chloride 5 mg PO DAILY 09/21/19 10/14/19 History furosemide 80 mg PO BID 10/14/19 10/14/19 History levofloxacin 250 mg PO DAILY 10/14/19 10/14/19 History metolazone 2.5 mg PO 3XWK 10/14/19 10/14/19 History Patient History Social History Smoking Status: Never smoker Cigarettes Per Day: 0.25ppd; Second Hand Exposure: No; Do You Dip or Chew Tobacco: No; Tobacco Cessation Education Requested by Patient: No Hx Alcohol Use: No Hx Substance Use: No Preferred Language: [place] Communication Ability: Effective Communication Ability Comment: very [place] 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 Beliefs That Will Affect Care: None marital status: Current Living Situation: Spouse Current Living Situation Comment: lives in home with and has caregivers Other Information That Helps Us Care for You: No Feels Safe at Home: Yes Safety Concerns: Feels Safe At This Time Review of Systems Review of Systems: ROS: Gen: + weakness, no fevers, no weight loss Eyes: No eye redness, or pain, no recent vision changes Resp: No SOB, no cough Cardio: No palpitations/irregular beats, no chest pain GI: No abdominal pain, no nausea/vomiting : Denies pain on urination Skin: No jaundice, itching or new rashes Physical Exam Constitutional: WD/WN, vitals as above Eyes: PERRL, conjunctivae normal, anicteric sclerae ENMT: external ear and nose normal, oropharynx normal Neck: trachea midline, no thyromegaly Respiratory: normal respiratory effort, lungs clear to auscultation Auscultation: + diminished lung sounds ( bases) Cardiovascular: Rate/Rhythm: regular rate and regular rhythm bilat lower legs 1+ edema Gastrointestinal (Abdomen): Inspection/Auscultation: abdomen normal to inspection; abdomen not distended Percussion/Palpation: abdomen soft; abdomen nontender Obese. Rectal exam with good sphincter tone, brown, soft stool in the vault. Results & Data ([facility]) Vital Signs (Past 12 Hours) Vital Signs Temp Pulse Pulse Resp BP BP Pulse Ox 10/15/19 07:18 37.1 C 77 20 113/67 96 10/15/19 04:46 37.0 C 79 18 137/77 93 10/15/19 04:07 76 10/15/19 00:58 10/15/19 00:15 37.0 C 78 16 115/62 96 10/15/19 00:10 74 16 114/60 99 10/14/19 22:49 78 16 105/66 97 10/14/19 22:23 36.5 C 71 16 152/73 H 95 10/14/19 21:58 36.4 C L 85 16 122/62 96 10/14/19 21:30 36.5 C 76 16 108/64 93 10/14/19 20:58 36.4 C L 75 16 113/45 L 96 Pulse Ox 10/15/19 07:18 10/15/19 04:46 10/15/19 04:07 10/15/19 00:58 96 10/15/19 00:15 10/15/19 00:10 10/14/19 22:49 10/14/19 22:23 10/14/19 21:58 10/14/19 21:30 10/14/19 20:58 Laboratory Results WBC 9, Hb 7.4, Hct 22.7, Platelets 139, K 3.6, BUN 89, Cr 4.[address] w/o contrast 10/13: 1 Mild to moderate subcutaneous stranding of the bilateral flank distributions, left greater than right are noted with a few small nodular subcutaneous foci possibly reflective of hematomas on the left. This likely correlates with the reported clinical history of flank bruising. 2. No acute fracture or acute intra-abdominal or intrapelvic abnormality. 3. Cardiomegaly with trace pleural effusions and pulmonary edema. 4. Asymmetric enlargement of the left ovary compared to the right redemonstrated. Correlation with pelvic ultrasound recommended. 5. Moderate fecal retention. 6. Additional findings as above. (1) Anemia Anemia type: due to chronic kidney disease Chronic kidney disease stage: stage 4 (severe) Qualified Code(s): N18.4 - Chronic kidney disease, stage 4 (severe); D63.1 - Anemia in chronic kidney disease
[2019-10-15] MEDS: PANTOprazole 40 MG in SYRINGE 0 ML IV SCH ×2 (09:14→20:46)
[2019-10-15 11:58] LABS: Hematocrit (blood only) 23.1 % (37-47); Hemoglobin 7.5 g/dL (12.0-16.0)
[2019-10-15] MEDS ORDERED: Nursing to Pharmacy Communication SCH (15:15)
--- NOTE | 2019-10-15 15:23 | Hospitalist Progress Note ---
Date of Service October 15, 2019 Assessment & Plan (1) Toxic metabolic encephalopathy: Seems to be multifactorial (worsening renal function ) CT head on admission showed no acute intracranial abnormality Lyrica on hold Clinically improves CKD Stage IV- V Creatinine [address] pelvis/abd showed Unremarkable appearance of the kidneys. No obstructive uropathy. Mild to moderate urinary bladder distention. Nephrology on board Pt and are OK to proceed with HD if pt will require dialysis during this admission Will talk to Vascular surgery tomorrow about Perm cath Continue monitor BMP while on IV lasix Acute on Chronic diastolic heart failure CXR showed pulmonary edema. Echo on 09/03 showed moderate concentric left ventricular hypertrophy. Septal motion is consistent with conduction abnormality. Borderline global hypokinesis of the left ventricle. No regional wall motion abnormalities. Ejection fraction 50 to 55% Continue aggressive diuresis with Lasix 80mg IV BID Will put on 1.5 L fluid restriction Monitor I/O Anemia Mostly due to CKD Hgb on admission 6.8 received 1 units PRBC Gastro on board ad does not plan to scope in this admission Hgb 7.5 Will give Venofer and Procrit per Nephro Continue monitor CBC Electrolytes imbalance Phosphorus elevated 7.1 started on Phoslo Monitor electrolytes Left Ovarian Enlargement CT pelvis/abd showed asymmetric prominence of the left ovary/adnexum compared to the right redemonstrated, 4.5 x 3.4 cm. vaginal U/S pending RLE cellulitis Continue Doxycycline Hx Meniere Dx brought the Betahistine Parkinson's Dx Continue Levodopa/Carbidopa DVT px on SCDs due to anemia CODE STATUS FULL CODE Admission and Anticipated Discharge Date Admission Date: October 14, 2019 Subjective Pt was seen and examined Lying in bed with no distress Pt said that she feels a lot better She wants to know when she is going home Denies any chest pain, palpitation, dizziness and SOB Physical Exam Physical Exam: General- No acute distress Head- atraumatic Eyes- PERRL, EOMI, ENT- decrease hearing function Neck- supple, no JVD Lungs- diminished breath sound Heart- regular rhythm; no murmur Abdomen- normal bowel sounds, soft, nontender Extremities- no calf tenderness Neuro- alert, oriented x 3; PERRL, EOMI; no facial palsy; no dysarthria Skin- warm & dry Results & Data Results & Data ([facility]) Vital Signs (Past 12 Hours) Vital Signs Temp Pulse Pulse Resp BP Pulse Ox 10/15/19 11:27 36.8 C 81 18 137/61 95 10/15/19 07:18 37.1 C 77 20 113/67 96 10/15/19 04:46 37.0 C 79 18 137/77 93 10/15/19 04:07 76
--- NOTE | 2019-10-15 15:39 | Consultation Report ---
DATE OF CONSULTATION: 10/15/2019 NEPHROLOGY CONSULTATION NOTE REASON FOR CONSULT: Acute renal failure on background chronic kidney disease IV and severe anemia. HISTORY OF PRESENT ILLNESS: The patient is a 74-year-old female with preexisting CKD stage IV, which has been getting progressively worse. She presented to the hospital yesterday after outpatient labs showed severe anemia with a hemoglobin of less than 7 and acute renal failure. She had 1 unit of blood transfusion and after that hemoglobin is 7.5. Creatinine was 4.12 at the time of admission yesterday and it is worth noting that the patient had a creatinine in the high 2s to low 3s during her recent hospitalization. Her baseline creatinine is also worsening after each hospital admission and she is getting closer and closer to needing long-term dialysis. She is aware of that and is willing to do dialysis if needed. Cultures had been sent and are pending, but she is getting empiric antibiotics. She did have abdominal pelvis CT scan as well as chest x-ray and both of them show pulmonary edema. The patient is a very poor historian and really does not know anything why she is in the hospital. She had 1 dose of Lasix yesterday. She has already been seen by GI and they do not believe she has GI bleed, which I agree. PAST MEDICAL AND SURGICAL HISTORY: Includes chronic diastolic heart failure with preserved ejection fraction, chronic left bundle branch block, hypertension, hyperlipidemia, obstructive sleep apnea - on CPAP, history of PE, status post anticoagulation, rheumatoid arthritis, Parkinson disease, Meniere disease, type 2 diabetes, rheumatoid arthritis, CKD stage IV - progressively worsening, fatty liver, chronic anemia related with kidney disease, diverticulosis, recent hospital admission for respiratory failure, sepsis secondary to multifocal pneumonia. ALLERGIES: List reviewed. HOME MEDICATIONS: List was reviewed and is as per the reconciliation list. REVIEW OF SYSTEMS: Unable to obtain as the patient does not really know anything why she is in the hospital. SOCIAL HISTORY: No smoking now, used to smoke in the past. No alcohol. , lives with her spouse in her home. PHYSICAL EXAMINATION: GENERAL: Elderly white female who does not appear to be in any overt respiratory distress in resting position. HEENT: Mucous membrane is moist. NECK: Supple. No jugular venous distention. CHEST: Bilaterally decreased breath sounds, occasional crackles. CARDIOVASCULAR: S1, S2, regular. Soft systolic murmur heard. ABDOMEN: Soft, distended mildly, nontender. EXTREMITIES: Show 1+ edema bilaterally. VITAL SIGNS: Blood pressure 137/61, pulse rate 81, temperature 36.8, 95% on 2 liter nasal cannula. LABORATORY TESTS: Reviewed. Blood work from today shows hemoglobin is up to 7.5 after blood transfusion, platelet count 139. Sodium 146, potassium 3.6, BUN 89, creatinine 4.04, calcium 6.8, phosphorus is 7.1, albumin 3.1. Chest x-ray shows pulmonary edema. CT abdomen and pelvis shows cardiomegaly, pleural effusion and pulmonary edema. ASSESSMENT AND PLAN: A 74-year-old female with progressively worsening chronic kidney disease, admitted with severe anemia and worsening kidney function. Acute renal failure: Although can qualify as acute renal failure, but this is an accelerated phase of chronic kidney disease progression and I believe she has already entered stage V kidney disease. She has evidence of fluid overload and needs to be diuresed. I will write for Lasix 80 mg IV twice daily. Even as an outpatient during her recent nephrology followup, she was noted to be in fluid overload and diuretics dose was increased, but she did not really respond to that. I agree with gastrointestinal that anemia is almost certainly related with chronic kidney disease V. We will give her Venofer 300 mg today as well as give Procrit 10,000 units today for anemia of chronic kidney disease and she needs to continue this as an outpatient through anemia clinic. She has low calcium and high phosphorus, again consistent with chronic kidney disease V. We will start her on PhosLo 1 tablet with each meal. In a nutshell, she has progressive chronic kidney disease, which has now progressed to chronic kidney disease V with clinical as well as biochemical markers of chronic kidney disease progression. It is quite possible that we may have to do dialysis during this inpatient stay itself. She is agreeable to do dialysis if needed.
[2019-10-15] MEDS ORDERED: EPOETIN ALFA 10,000 UNITS/ML VIAL SQ SCH (16:00)
[2019-10-15] MEDS ORDERED: IRON SUCROSE 300 MG in SODIUM CHLORIDE 0.9% 250 ML IV ONE (16:00)
[2019-10-15] MEDS: FUROSEMIDE 80 MG in SYRINGE 0 ML IV SCH (16:52)
[2019-10-15] MEDS: CALCIUM ACETATE 667 MG CAP/TAB PO SCH (16:53)
[2019-10-15 18:10] LABS: Hematocrit (blood only) 22.5 % (37-47); Hemoglobin 7.5 g/dL (12.0-16.0)
[2019-10-15] MEDS: PRAVASTATIN SOD 40 MG TAB PO SCH (20:45)
[2019-10-15] MEDS: DOXYCYCLINE HYCLATE 100 MG CAP PO SCH (20:45)
[2019-10-15] MEDS: TERAZOSIN HCL 5 MG CAP PO SCH (20:46)
[2019-10-15] MEDS ORDERED: [UNRECOGNIZED DRUG - OTHER] PO SCH (21:00)
[2019-10-15] MEDS: BETAHISTINE 16 MG PO SCH (21:20)
[2019-10-16 06:37] LABS: Hematocrit (blood only) 23.3 % (37-47); Hemoglobin 7.4 g/dL (12.0-16.0); Mean Corpuscular Hemoglobin 28.2 pg (25-34); Mean Corpuscular Hgb Conc 31.8 g/dL (32-36); Mean Corpuscular Volume 88.9 fL (80-100); Mean Platelet Volume 11.9 fL (7.4-10.4); Platelet Count 135 K/uL (130-400); RDW Standard Deviation 49.2 fL (36.4-46.3); Red Blood Count 2.62 M/uL (4.2-5.4); White Blood Count 8.58 K/uL (4.8-10.8)
[2019-10-16] MEDS: LEVOTHYROXINE SODIUM 125 MCG TABLET PO SCH (06:37)
--- NOTE | 2019-10-16 06:46 | Electrocardiogram Report ---
Test Reason : Blood Pressure : / mmHG Vent. Rate : 073 BPM Atrial Rate : 073 BPM P-R Int : 174 ms QRS Dur : 152 ms QT Int : 494 ms P-R-T Axes : 061 055 039 degrees QTc Int : 544 ms Sinus rhythm with frequent Premature ventricular complexes Left bundle branch block Abnormal ECG When compared with ECG of 22-SEP-2019 08:34, Premature ventricular complexes are now Present QT has lengthened Confirmed by Jerod Ngo ([id number]) on 10/16/2019 6:45:37 AM Referred By: REFERRED SELF Confirmed By:Jerod Ngo
[2019-10-16 07:04] LABS: BUN Creatinine Ratio 21.6 (10-20); Creatinine Clr Calc Pharmacy 13.2 ml/min; Est GFR (African American) 11.3; Est GFR (Non-African American) 9.7; Potassium 3.2 mmol/L (3.5-5.1)
[2019-10-16 07:17] LABS: Phosphorus 5.7 mg/dl (2.5-4.9)
[2019-10-16] MEDS: AMLODIPINE BESYLATE 5 MG TAB PO SCH (08:34)
[2019-10-16] MEDS: CARBIDOPA/LEVODOPA 25/100MG TAB PO SCH ×3 (08:34→17:11)
[2019-10-16] MEDS: CALCIUM ACETATE 667 MG CAP/TAB PO SCH ×3 (08:34→17:11)
[2019-10-16] MEDS: CHOLECALCIFEROL 1,000 UNITS 25 MCG TAB PO SCH (08:34)
[2019-10-16] MEDS: DOXYCYCLINE HYCLATE 100 MG CAP PO SCH ×2 (08:35→21:28)
[2019-10-16] MEDS: ISOSORBIDE MONO EXTENDED REL 30 MG TABCR PO SCH (08:35)
[2019-10-16] MEDS: VENLAFAXINE HCL XR 75 MG CAPXR PO SCH (08:35)
[2019-10-16] MEDS: CYANOCOBALAMIN 500 MCG TABLET (VITAMIN B-12) PO SCH (08:35)
[2019-10-16] MEDS: BETAHISTINE 16 MG PO SCH ×2 (08:36→21:26)
[2019-10-16] MEDS: PANTOprazole 40 MG in SYRINGE 0 ML IV SCH ×2 (08:36→21:30)
[2019-10-16] MEDS: MICONAZOLE NITRATE POWDER 43 GM EXT SCH ×2 (08:36→21:25)
[2019-10-16] MEDS: INSULIN ASPART 100 UNITS/ML 3 ML PEN SC SCH ×4 (08:38→21:27)
[2019-10-16] MEDS: FUROSEMIDE 80 MG in SYRINGE 0 ML IV SCH ×2 (08:39→17:10)
[2019-10-16] MEDS ORDERED: CALCIUM ACETATE 667 MG CAP/TAB PO SCH (09:15)
--- NOTE | 2019-10-16 12:15 | Ultrasound Report ---
US pelvic complete CLINICAL HISTORY: L ovarian enlargement on CT COMPARISON STUDY: CT 10/14/2019 FINDINGS: The uterus measured 7 cm in greatest linear dimension.. The endometrial stripe measured 6 mm. The right ovary measured poorly seen. The left ovary measured poorly seen. There is no ultrasonographic evidence of ovarian torsion. It should be noted that ovarian torsion can be present with normal Doppler ultrasonographic findings. There was no evidence of pathologic free pelvic fluid. IMPRESSION: 1. Nondiagnostic study of the pelvis. 2. Ovaries not seen possibly due to overlying bowel content. ACT 112: Negative or not required by law. The above report was generated using voice recognition software. It may contain grammatical, syntax or spelling errors. Electronically signed by: Ortega Gonsales M.D. 10/16/2019 12:14 PM
--- NOTE | 2019-10-16 18:49 | Hospitalist Progress Note ---
Date of Service October 16, 2019 Assessment & Plan (1) Toxic metabolic encephalopathy: Seems to be multifactorial (worsening renal function ) CT head on admission showed no acute intracranial abnormality Will decrease Lyrica to half Mental status improved Stable CKD Stage IV- V Creatinine [address] pelvis/abd showed Unremarkable appearance of the kidneys. No obstructive uropathy. Mild to moderate urinary bladder distention. Creatinine 4.2 today Nephrology on board Pt and are OK to proceed with HD if pt will require dialysis during this admission case disccused with nephrology and recommended to continue diuresis with IV lasix Continue monitor BMP while on IV lasix Acute on Chronic diastolic heart failure CXR showed pulmonary edema. Echo on 09/03 showed moderate concentric left ventricular hypertrophy. Septal motion is consistent with conduction abnormality. Borderline global hypokinesis of the left ventricle. No regional wall motion abnormalities. Ejection fraction 50 to 55% Continue aggressive diuresis with Lasix 80mg IV BID Will put on 1.5 L fluid restriction Monitor I/O Anemia Mostly due to CKD Hgb on admission 6.8 received 1 units PRBC Gastro on board ad does not plan to scope in this admission Hgb 7.4 today Continue Venofer and Procrit per Nephro Continue monitor CBC Electrolytes imbalance Phosphorus elevated 7.1 Continue Phoslo TID Monitor electrolytes Left Ovarian Enlargement CT pelvis/abd showed asymmetric prominence of the left ovary/adnexum compared to the right redemonstrated, 4.5 x 3.4 cm. Pelvis U/S done nondiagnostic study of the pelvis. Ovaries not seen possibly due to overlying bowel content. Need to monitor outpatient RLE cellulitis Continue Doxycycline Hx Meniere Dx brought the Betahistine Parkinson's Dx Continue Levodopa/Carbidopa DVT px on SCDs due to anemia CODE STATUS FULL CODE Admission and Anticipated Discharge Date Admission Date: October 14, 2019 Subjective Pt was seen and examined Lying in bed with no distress Pt said that her breathing and energy improve She has been diuresis very well Denies any chest pain, palpitation, dizziness and fever Physical Exam Physical Exam: General- No acute distress Head- atraumatic Eyes- PERRL, EOMI, ENT- decrease hearing function Neck- supple, no JVD Lungs- diminished breath sound Heart- regular rhythm; no murmur Abdomen- normal bowel sounds, soft, nontender Extremities- no calf tenderness Neuro- alert, oriented x 3; PERRL, EOMI; no facial palsy; no dysarthria Skin- warm & dry Results & Data Results & Data ([facility]) Vital Signs (Past 12 Hours) Vital Signs Temp Pulse Pulse Resp BP BP Pulse Ox 10/16/19 15:19 36.3 C L 65 18 113/53 L 95 10/16/19 15:00 64 10/16/19 07:30 36.8 C 60 18 94/48 L 93
--- NOTE | 2019-10-16 19:15 | Progress Notes ---
DATE: 10/16/2019 SUBJECTIVE: Overnight, no major new issues. She continues to diurese pretty well. OBJECTIVE: VITAL SIGNS: Blood pressure 113/53, temperature 36.3, 3 liters nasal cannula 95%. HEENT: Mucous membranes moist. NECK: Supple. No jugular venous distention. CHEST: Bilateral decreased breath sounds, poor inspiratory effort. CARDIOVASCULAR: S1, S2 regular. ABDOMEN: Soft, nontender. EXTREMITIES: Shows edema bilaterally, pitting type. LABORATORY TESTS: From this morning reviewed in detail and shows some worsening in the renal blood work. ASSESSMENT AND PLAN: A 74-year-old female with progressively worsening chronic kidney disease, admitted with severe anemia and worsening kidney function. Acute renal failure, although technically qualify as acute renal failure, but this is more accelerated phase of CKD progression and I believe she has already entered stage V kidney disease. She has evidence of fluid overload and needs to be diuresed. Continue Lasix 80 mg IV twice daily. I believe the severe anemia as well as low calcium and high phosphorus are all biochemical markers of CKD V. It is very likely that the patient needs to be started on chronic maintenance hemodialysis during this hospital stay itself. We will continue to diurese over the next few days and decision can be made on Friday regarding chronic dialysis. Continue current Lasix dose.
[2019-10-16] MEDS: TERAZOSIN HCL 5 MG CAP PO SCH (21:25)
[2019-10-16] MEDS: PRAVASTATIN SOD 40 MG TAB PO SCH (21:28)
[2019-10-17] MEDS: LEVOTHYROXINE SODIUM 125 MCG TABLET PO SCH (05:31)
[2019-10-17] MEDS: BETAHISTINE 16 MG PO SCH ×2 (07:30→21:09)
[2019-10-17] MEDS: AMLODIPINE BESYLATE 5 MG TAB PO SCH (07:31)
[2019-10-17] MEDS: FUROSEMIDE 80 MG in SYRINGE 0 ML IV SCH ×2 (07:31→17:45)
[2019-10-17] MEDS: PANTOprazole 40 MG in SYRINGE 0 ML IV SCH (07:31)
[2019-10-17] MEDS: MICONAZOLE NITRATE POWDER 43 GM EXT SCH ×2 (07:31→21:11)
[2019-10-17] MEDS: CHOLECALCIFEROL 1,000 UNITS 25 MCG TAB PO SCH (07:31)
[2019-10-17] MEDS: VENLAFAXINE HCL XR 75 MG CAPXR PO SCH (07:32)
[2019-10-17] MEDS: ISOSORBIDE MONO EXTENDED REL 30 MG TABCR PO SCH (07:32)
[2019-10-17] MEDS: CYANOCOBALAMIN 500 MCG TABLET (VITAMIN B-12) PO SCH (07:32)
[2019-10-17] MEDS: DOXYCYCLINE HYCLATE 100 MG CAP PO SCH ×2 (07:32→21:09)
[2019-10-17] MEDS: CARBIDOPA/LEVODOPA 25/100MG TAB PO SCH ×3 (07:32→17:47)
[2019-10-17] MEDS: CALCIUM ACETATE 667 MG CAP/TAB PO SCH ×3 (07:32→17:46)
[2019-10-17] MEDS: INSULIN ASPART 100 UNITS/ML 3 ML PEN SC SCH ×4 (08:28→20:33)
[2019-10-17 08:55] LABS: BUN Creatinine Ratio 21.3 (10-20); Calcium 7.2 mg/dl (8.5-10.1); Est GFR (African American) 11.1; Est GFR (Non-African American) 9.5; Potassium 2.9 mmol/L (3.5-5.1)
[2019-10-17 09:10] LABS: Hematocrit (blood only) 25.1 % (37-47); Hemoglobin 8.1 g/dL (12.0-16.0); Mean Corpuscular Hemoglobin 28.6 pg (25-34); Mean Corpuscular Volume 88.7 fL (80-100); Platelet Count 136 K/uL (130-400); RDW Coefficient of Variation 14.8 % (11.5-14.5); RDW Standard Deviation 48.6 fL (36.4-46.3); Red Blood Count 2.83 M/uL (4.2-5.4); White Blood Count 7.81 K/uL (4.8-10.8)
[2019-10-17 09:11] LABS: Mean Corpuscular Hgb Conc 32.3 g/dL (32-36)
[2019-10-17 09:19] LABS: BUN Creatinine Ratio 21.1 (10-20); Calcium 7.5 mg/dl (8.5-10.1); Est GFR (African American) 11.1; Est GFR (Non-African American) 9.5; Potassium 3.2 mmol/L (3.5-5.1)
[2019-10-17] MEDS ORDERED: POTASSIUM CHLORIDE 20 MEQ TABCR PO STA (09:31)
--- NOTE | 2019-10-17 18:21 | Progress Notes ---
DATE: 10/17/2019 SUBJECTIVE: Overnight, no major new issues. She diuresed pretty well yesterday and made about 3.5 liters of urine. OBJECTIVE: VITAL SIGNS: Blood pressure is 123/70, pulse rate 69, 97% on 3 liter nasal cannula. HEENT: Mucous membranes moist. NECK: Supple. No jugular venous distention. CHEST: Decreased breath sounds, but very poor inspiratory effort. Decreased breath sound at bases, occasional crackles. CARDIOVASCULAR: S1, S2 regular. ABDOMEN: Soft, nontender. EXTREMITIES: Shows trace edema and is less than few days ago. ASSESSMENT AND PLAN: A 74-year-old female with progressively worsening chronic kidney disease, admitted with severe anemia and worsening kidney function. 1. Acute renal failure. This is mostly chronic kidney disease progression and has now entered stage V kidney disease. She had clearcut evidence of symptomatic fluid overload/pulmonary edema at the time of admission. For now, continue Lasix 80 mg IV twice daily. We can start cutting back on the Lasix from tomorrow. However, I think patient has really entered the phase of chronic kidney disease stage V where she needs dialysis chronically. We will make that decision tomorrow. 2. Anemia related with chronic kidney disease V. I did start her on Procrit from yesterday as well as Abe.
--- NOTE | 2019-10-17 19:23 | Hospitalist Progress Note ---
Date of Service October 17, 2019 Assessment & Plan (1) Toxic metabolic encephalopathy: Seems to be multifactorial (worsening renal function ) CT head on admission showed no acute intracranial abnormality Will decrease Lyrica to half Mental status improved Stable CKD Stage IV- V Creatinine [address] pelvis/abd showed Unremarkable appearance of the kidneys. No obstructive uropathy. Mild to moderate urinary bladder distention. Creatinine 4.3 today Nephrology on board Pt and are OK to proceed with HD if pt will require dialysis during this admission case discussed with nephrology and recommended to continue diuresis with IV lasix Continue monitor BMP while on IV lasix Acute on Chronic diastolic heart failure CXR showed pulmonary edema. Echo on 09/03 showed moderate concentric left ventricular hypertrophy. Septal motion is consistent with conduction abnormality. Borderline global hypokinesis of the left ventricle. No regional wall motion abnormalities. Ejection fraction 50 to 55% Continue aggressive diuresis with Lasix 80mg IV BID Will put on 1.5 L fluid restriction Monitor I/O Anemia Mostly due to CKD Hgb on admission 6.8 received 1 units PRBC Gastro on board ad does not plan to scope in this admission Hgb 8.1 today Continue Venofer and Procrit per Nephro Continue monitor CBC Electrolytes imbalance Phosphorus elevated 7.1 Continue Phoslo TID Monitor electrolytes Left Ovarian Enlargement CT pelvis/abd showed asymmetric prominence of the left ovary/adnexum compared to the right redemonstrated, 4.5 x 3.4 cm. Pelvis U/S done nondiagnostic study of the pelvis. Ovaries not seen possibly due to overlying bowel content. Need to monitor outpatient RLE cellulitis Continue Doxycycline clinically improves Hx Meniere Dx brought the Betahistine Parkinson's Dx Continue Levodopa/Carbidopa DVT px on SCDs due to anemia CODE STATUS FULL CODE Admission and Anticipated Discharge Date Admission Date: October 14, 2019 Subjective Pt was seen and examined Lying in bed with no distress Pt said that her breathing feels much better Her legs edema improved significantly She is very anxious and she would like to be discharge tomorrow She continues to diuresis well Denies any chest pain, palpitation, dizziness and fever Physical Exam Physical Exam: General- No acute distress Head- atraumatic Eyes- PERRL, EOMI, ENT- decrease hearing function Neck- supple, no JVD Lungs- diminished breath sound Heart- regular rhythm; no murmur Abdomen- normal bowel sounds, soft, nontender Extremities- no calf tenderness Neuro- alert, oriented x 3; PERRL, EOMI; no facial palsy; no dysarthria Skin- warm & dry Results & Data Results & Data ([facility]) Vital Signs (Past 12 Hours) Vital Signs Temp Pulse Resp BP Pulse Ox 10/17/19 15:23 36.8 C 69 20 123/70 97 10/17/19 11:19 36.7 C 61 20 111/61 96 10/17/19 07:49 36.5 C 89 18 103/65 95 10/17/19 07:47 36.7 C 59 L 18 112/55 L 95
[2019-10-17] MEDS: PREGABALIN 100 MG CAP PO SCH (21:07)
[2019-10-17] MEDS: PRAVASTATIN SOD 40 MG TAB PO SCH (21:09)
[2019-10-17] MEDS: PANTOprazole 40 MG TAB PO SCH (21:10)
[2019-10-17] MEDS: TERAZOSIN HCL 5 MG CAP PO SCH (21:10)
[2019-10-17] MEDS: POTASSIUM CHLORIDE 20 MEQ TABCR PO SCH (21:11)
[2019-10-18] MEDS: LEVOTHYROXINE SODIUM 125 MCG TABLET PO SCH (05:43)
[2019-10-18] MEDS: CYANOCOBALAMIN 500 MCG TABLET (VITAMIN B-12) PO SCH (07:47)
[2019-10-18] MEDS: POTASSIUM CHLORIDE 20 MEQ TABCR PO SCH ×2 (07:47→21:43)
[2019-10-18] MEDS: CARBIDOPA/LEVODOPA 25/100MG TAB PO SCH ×3 (07:48→17:43)
[2019-10-18] MEDS: DOXYCYCLINE HYCLATE 100 MG CAP PO SCH ×2 (07:48→21:45)
[2019-10-18] MEDS: AMLODIPINE BESYLATE 5 MG TAB PO SCH (07:48)
[2019-10-18] MEDS: ISOSORBIDE MONO EXTENDED REL 30 MG TABCR PO SCH (07:49)
[2019-10-18] MEDS: VENLAFAXINE HCL XR 75 MG CAPXR PO SCH (07:49)
[2019-10-18] MEDS: MICONAZOLE NITRATE POWDER 43 GM EXT SCH ×2 (07:49→21:44)
[2019-10-18] MEDS: CALCIUM ACETATE 667 MG CAP/TAB PO SCH ×3 (07:49→17:43)
[2019-10-18] MEDS: PANTOprazole 40 MG TAB PO SCH (07:51)
[2019-10-18] MEDS: CHOLECALCIFEROL 1,000 UNITS 25 MCG TAB PO SCH (07:51)
[2019-10-18] MEDS: BETAHISTINE 16 MG PO SCH ×2 (07:52→21:45)
[2019-10-18] MEDS: FUROSEMIDE 80 MG in SYRINGE 0 ML IV SCH (09:15)
[2019-10-18] MEDS: INSULIN ASPART 100 UNITS/ML 3 ML PEN SC SCH ×4 (09:16→20:43)
[2019-10-18 09:21] LABS: BUN Creatinine Ratio 20.8 (10-20); Creatinine Clr Calc Pharmacy 12.5 ml/min; Est GFR (African American) 10.8; Est GFR (Non-African American) 9.3; Phosphorus 5.5 mg/dl (2.5-4.9); Potassium 3.1 mmol/L (3.5-5.1)
[2019-10-18] MEDS: PREGABALIN 100 MG CAP PO SCH ×2 (09:24→21:45)
[2019-10-18] MEDS ORDERED: POTASSIUM CHLORIDE 20 MEQ TABCR PO STA (10:02)
--- NOTE | 2019-10-18 10:09 | Nephrology Progress Note ---
Date of Service October 18, 2019 Assessment & Plan (1) Acute on chronic renal failure: Patient with advanced CKD. She was admitted with severe anemia and progressively worsening renal function. This is likely progressive CKD now stage V and nearing dialysis. There is no indication for dialysis today but will continue to monitor daily for dialysis need. Creatinine at 4.4 and a BUN of 92 today. -Avoid nephrotoxins such as contrast unless lifesaving. -Daily BMP (2) Anemia: Due to renal disease. Continue Procrit weekly. Hemoglobin of 8.1 today. (3) Hypokalemia: Due to renal potassium wasting in setting of Lasix. We will stop Lasix today. We will give an additional 40 mEq of potassium chloride today. (4) Acute hypoxemic respiratory failure: Due to pneumonia and fluid overload. She is doing well on oxygen by nasal cannula. We will stop IV Lasix today. She will start torsemide tomorrow 100 mg daily Admission and Anticipated Discharge Date Admission Date: October 14, 2019 Subjective She feels better this morning denies any shortness of breath or pain. No vomiting. Creatinine stable. Potassium is low due to diuresis. She was net -2.2 L yesterday Review of Systems Review of Systems: All systems reviewed & are unremarkable except as noted in HPI & below Physical Exam Physical Exam: General exam: Appears comfortable, no acute distress HEENT: Pupils are equal and reactive to light Neck: No JVD, neck is supple trachea is midline Respiratory system: Clear breath sounds bilaterally. Gastrointestinal: Abdomen is soft, non distended, non tender, bowel sounds are present CVS: Regular rate and rhythm. No murmurs, rubs or gallops Musculoskeletal: No joint or muscle tenderness Extremities: Non tender, no edema, peripheral pulses are present Neuro: Oriented, no tremors, no focal neurological deficits Skin: No rashes Results & Data ([facility]) Vital Signs (Past 12 Hours) Vital Signs Temp Pulse Pulse Resp BP BP Pulse Ox 10/18/19 09:52 58 L 10/18/19 07:08 36.9 C 52 L 18 123/69 94 10/18/19 04:00 36.5 C 59 L 18 150/62 H 95 10/17/19 23:30 67 10/17/19 22:53 36.9 C 65 18 137/71 95 Laboratory Results 10/18/19 08:13 10/18/19 08:13 Phosphorus 5.5 H (1) Acute on chronic renal failure Acute renal failure type: unspecified Chronic kidney disease stage: stage 5, not on chronic dialysis Qualified Code(s): N17.9 - Acute kidney failure, unspecified; N18.5 - Chronic kidney disease, stage 5 (2) Anemia Anemia type: due to chronic kidney disease Chronic kidney disease stage: stage 4 (severe) Qualified Code(s): N18.4 - Chronic kidney disease, stage 4 (severe); D63.1 - Anemia in chronic kidney disease
--- NOTE | 2019-10-18 18:33 | Hospitalist Progress Note ---
Date of Service October 18, 2019 Assessment & Plan (1) Toxic metabolic encephalopathy: Seems to be multifactorial (worsening renal function ) CT head on admission showed no acute intracranial abnormality Will decrease Lyrica to half Mental status improved Stable CKD Stage IV- V Creatinine [address] pelvis/abd showed Unremarkable appearance of the kidneys. No obstructive uropathy. Mild to moderate urinary bladder distention. Creatinine 4.4 today Nephrology on board Pt and are OK to proceed with HD if pt will require dialysis during this admission Lasix IV was discontinued and plan to transition to torsemide 100mg daily in am Continue monitor BMP Acute on Chronic diastolic heart failure CXR showed pulmonary edema. Echo on 09/03 showed moderate concentric left ventricular hypertrophy. Septal motion is consistent with conduction abnormality. Borderline global hypokinesis of the left ventricle. No regional wall motion abnormalities. Ejection fraction 50 to 55% Diuresis well with Lasix 80mg IV BID Will put on 1.5 L fluid restriction IV lasix discontinued today and will transition to PO torsemide in AM Clinically improves Anemia Mostly due to CKD Hgb on admission 6.8 received 1 units PRBC Gastro on board ad does not plan to scope in this admission Hgb 8.1 today Continue Venofer and Procrit per Nephro Continue monitor CBC Electrolytes imbalance Phosphorus elevated 5.5 Continue Phoslo TID Monitor electrolytes Left Ovarian Enlargement CT pelvis/abd showed asymmetric prominence of the left ovary/adnexum compared to the right redemonstrated, 4.5 x 3.4 cm. Pelvis U/S done nondiagnostic study of the pelvis. Ovaries not seen possibly due to overlying bowel content. Transvaginal u/s showed nondiagnostic study of the pelvis. Ovaries not seen possibly due to overlying bowel content. Need to monitor outpatient RLE cellulitis Continue Doxycycline clinically improves Hx Meniere Dx brought the Betahistine Parkinson's Dx Continue Levodopa/Carbidopa DVT px on SCDs due to anemia CODE STATUS FULL CODE Admission and Anticipated Discharge Date Admission Date: October 14, 2019 Subjective Pt was seen and examined Lying in bed with no distress Pt said that her breathing is better She said that she feels much better compared to when she came Denies any chest pain, palpitation, dizziness and SOB Physical Exam Physical Exam: General- No acute distress Head- atraumatic Eyes- PERRL, EOMI, ENT- decrease hearing function Neck- supple, no JVD Lungs- diminished breath sound Heart- regular rhythm; no murmur Abdomen- normal bowel sounds, soft, nontender Extremities- no calf tenderness Neuro- alert, oriented x 3; PERRL, EOMI; no facial palsy; no dysarthria Skin- warm & dry Results & Data Results & Data ([facility]) Vital Signs (Past 12 Hours) Vital Signs Temp Pulse Pulse Resp BP Pulse Ox 10/18/19 16:12 64 10/18/19 15:55 36.8 C 55 L 12 131/66 98 10/18/19 11:13 36.8 C 69 20 121/63 99 10/18/19 09:52 58 L 10/18/19 07:08 36.9 C 52 L 18 123/69 94
[2019-10-18] MEDS: PRAVASTATIN SOD 40 MG TAB PO SCH (21:45)
[2019-10-18] MEDS: TERAZOSIN HCL 5 MG CAP PO SCH (21:45)
[2019-10-19] MEDS: LEVOTHYROXINE SODIUM 125 MCG TABLET PO SCH (05:49)
[2019-10-19 08:15] LABS: Hematocrit (blood only) 28.9 % (37-47); Hemoglobin 9.2 g/dL (12.0-16.0); Mean Corpuscular Hemoglobin 28.2 pg (25-34); Mean Corpuscular Hgb Conc 31.8 g/dL (32-36); Mean Corpuscular Volume 88.7 fL (80-100); Mean Platelet Volume 11.8 fL (7.4-10.4); Platelet Count 163 K/uL (130-400); RDW Coefficient of Variation 14.8 % (11.5-14.5); RDW Standard Deviation 47.6 fL (36.4-46.3); Red Blood Count 3.26 M/uL (4.2-5.4); White Blood Count 7.73 K/uL (4.8-10.8)
[2019-10-19 08:43] LABS: Creatinine Clr Calc Pharmacy 12.3 ml/min; Est GFR (African American) 10.6; Est GFR (Non-African American) 9.1; Phosphorus 5.5 mg/dl (2.5-4.9); Potassium 4.2 mmol/L (3.5-5.1)
[2019-10-19] MEDS: INSULIN ASPART 100 UNITS/ML 3 ML PEN SC SCH ×4 (08:59→21:12)
[2019-10-19] MEDS: CARBIDOPA/LEVODOPA 25/100MG TAB PO SCH ×3 (08:59→17:48)
[2019-10-19] MEDS: AMLODIPINE BESYLATE 5 MG TAB PO SCH (09:00)
[2019-10-19] MEDS: BETAHISTINE 16 MG PO SCH ×2 (09:01→21:20)
[2019-10-19] MEDS: CYANOCOBALAMIN 500 MCG TABLET (VITAMIN B-12) PO SCH (09:02)
[2019-10-19] MEDS: VENLAFAXINE HCL XR 75 MG CAPXR PO SCH (09:02)
[2019-10-19] MEDS: ISOSORBIDE MONO EXTENDED REL 30 MG TABCR PO SCH (09:03)
[2019-10-19] MEDS: CALCIUM ACETATE 667 MG CAP/TAB PO SCH ×3 (09:04→17:47)
[2019-10-19] MEDS: TORSEMIDE 100 MG TAB PO SCH (09:05)
[2019-10-19] MEDS: DOXYCYCLINE HYCLATE 100 MG CAP PO SCH ×2 (09:06→21:19)
[2019-10-19] MEDS: CHOLECALCIFEROL 1,000 UNITS 25 MCG TAB PO SCH (09:06)
[2019-10-19] MEDS: POTASSIUM CHLORIDE 20 MEQ TABCR PO SCH ×2 (09:07→21:19)
[2019-10-19] MEDS: MICONAZOLE NITRATE POWDER 43 GM EXT SCH ×2 (09:08→21:22)
[2019-10-19] MEDS: PREGABALIN 100 MG CAP PO SCH ×2 (09:12→21:19)
--- NOTE | 2019-10-19 10:21 | Nephrology Progress Note ---
Date of Service October 19, 2019 Assessment & Plan (1) Acute on chronic renal failure: Patient with advanced CKD. She was admitted with severe anemia and progressively worsening renal function. This is likely progressive CKD now stage V and nearing dialysis. There is no indication for dialysis today but will continue to monitor daily for dialysis need. Creatinine at 4.4 and a BUN of 94 today. -Avoid nephrotoxins such as contrast unless lifesaving. -Daily BMP (2) Anemia: Due to renal disease. Continue Procrit weekly. Hemoglobin of 9.2 today. We will give her Venofer 200 mg daily while in-house after maximal 5 days. If patient is ready for discharge, she can continue Venofer as an outpatient. (3) Hypokalemia: Due to renal potassium wasting in setting of Lasix. K is 4.2 today. Continue potassium supplements. (4) Acute hypoxemic respiratory failure: Due to pneumonia and fluid overload. She is doing well on oxygen by nasal cannula. Continue torsemide tomorrow 100 mg daily Admission and Anticipated Discharge Date Admission Date: October 14, 2019 Subjective She feels better today denies any shortness of breath or leg swelling. She r emains awake and able to ambulate. She has a wheelchair at home. Creatinine is stable. Hemoglobin is 9.2 and iron saturation of 7.3% Review of Systems Review of Systems: All systems reviewed & are unremarkable except as noted in HPI & below Physical Exam Physical Exam: General exam: Appears comfortable, no acute distress HEENT: Pupils are equal and reactive to light Neck: No JVD, neck is supple trachea is midline Respiratory system: Clear breath sounds bilaterally. Gastrointestinal: Abdomen is soft, non distended, non tender, bowel sounds are present CVS: Regular rate and rhythm. No murmurs, rubs or gallops Musculoskeletal: No joint or muscle tenderness Extremities: Non tender, no edema, peripheral pulses are present Neuro: Oriented, no tremors, no focal neurological deficits Skin: No rashes Results & Data ([facility]) Vital Signs (Past 12 Hours) Vital Signs Temp Pulse Pulse Resp BP BP Pulse Ox 10/19/19 07:09 74 10/19/19 06:53 36.6 C 63 18 128/67 99 10/19/19 04:11 36 C L 45 L 20 106/54 L 92 10/18/19 23:47 74 10/18/19 23:00 36.8 C 62 18 121/63 97 Laboratory Results 10/19/19 07:57 10/19/19 10/19/19 07:57 07:57 WBC 7.73 RBC 3.26 L MCV 88.7 MCH 28.2 MCHC 31.8 L RDW Std Deviation 47.6 H RDW Coeff of Bhavin 14.8 H Plt Count 163 MPV 11.8 H Phosphorus 5.5 H (1) Acute on chronic renal failure Acute renal failure type: unspecified Chronic kidney disease stage: stage 5, not on chronic dialysis Qualified Code(s): N17.9 - Acute kidney failure, unspecified; N18.5 - Chronic kidney disease, stage 5 (2) Anemia Anemia type: due to chronic kidney disease Chronic kidney disease stage: stage 4 (severe) Qualified Code(s): N18.4 - Chronic kidney disease, stage 4 (severe); D63.1 - Anemia in chronic kidney disease
[2019-10-19] MEDS: IRON SUCROSE 200 MG in 0.9 % SODIUM CHLORIDE 100 ML IV SCH (11:43)
--- NOTE | 2019-10-19 18:14 | Hospitalist Progress Note ---
Date of Service October 19, 2019 Assessment & Plan (1) Toxic metabolic encephalopathy: Seems to be multifactorial (worsening renal function ) CT head on admission showed no acute intracranial abnormality Lyrica decreased from 200mg to 100mg BID Mental status improved Stable CKD Stage IV- V Creatinine [address] pelvis/abd showed Unremarkable appearance of the kidneys. No obstructive uropathy. Mild to moderate urinary bladder distention. Creatinine 4.4 today Nephrology on board Pt and are OK to proceed with HD if pt will require dialysis during this admission Lasix IV was discontinued and plan to transition to torsemide 100mg daily i case discussed with vascular Dr. Alcazar for dialysis access. Dr. Alcazar said that he would the mapping, and place dialysis catheter outpatient case discussed with Nephrology Dr. Bruce recommended to continue torsemide 100mg daily Will need outpatient BP check next Friday (10/24) Ok from nephrology standpoint to discharge home Pt would like to be discharged in the morning Acute on Chronic diastolic heart failure CXR showed pulmonary edema. Echo on 09/03 showed moderate concentric left ventricular hypertrophy. Septal motion is consistent with conduction abnormality. Borderline global hypokinesis of the left ventricle. No regional wall motion abnormalities. Ejection fraction 50 to 55% Diuresis well with Lasix 80mg IV BID Will put on 1.5 L fluid restriction IV lasix discontinued today and will transition to PO torsemide in AM Continue Torsemide 100mg daily Check BMP next week Clinically improves Anemia Mostly due to CKD Hgb on admission 6.8 received 1 units PRBC Gastro on board ad does not plan to scope in this admission Hgb 9.2 today Continue Venofer and Procrit per Nephro Continue monitor CBC Electrolytes imbalance Phosphorus elevated 5.5 Continue Phoslo TID Monitor electrolytes Left Ovarian Enlargement CT pelvis/abd showed asymmetric prominence of the left ovary/adnexum compared to the right redemonstrated, 4.5 x 3.4 cm. Pelvis U/S done nondiagnostic study of the pelvis. Ovaries not seen possibly due to overlying bowel content. Transvaginal u/s showed nondiagnostic study of the pelvis. Ovaries not seen possibly due to overlying bowel content. Need to monitor outpatient RLE cellulitis Continue Doxycycline clinically improves Hx Meniere Dx brought the Betahistine Parkinson's Dx Continue Levodopa/Carbidopa DVT px on SCDs due to anemia CODE STATUS FULL CODE Disposition Discharge home tomorrow Admission and Anticipated Discharge Date Admission Date: October 14, 2019 Subjective Pt was seen and examined Lying in bed with no distress Pt said that she feels ok She said that her breathing is good She would like to be discharge in the morning spoke to vascular Dr. Alcazar that will place dialysis access outpatient Denies any chest pain, palpitation, dizziness and SOB Physical Exam Physical Exam: General- No acute distress Head- atraumatic Eyes- PERRL, EOMI, ENT- decrease hearing function Neck- supple, no JVD Lungs- diminished breath sound Heart- regular rhythm; no murmur Abdomen- normal bowel sounds, soft, nontender Extremities- no calf tenderness Neuro- alert, oriented x 3; PERRL, EOMI; no facial palsy; no dysarthria Skin- warm & dry Results & Data Results & Data ([facility]) Vital Signs (Past 12 Hours) Vital Signs Temp Pulse Pulse Resp BP BP Pulse Ox 10/19/19 15:33 36.9 C 59 L 20 99/50 L 98 10/19/19 11:40 36.8 C 56 L 20 111/58 L 98 10/19/19 07:09 74 10/19/19 06:53 36.6 C 63 18 128/67 99
[2019-10-19] MEDS: TERAZOSIN HCL 5 MG CAP PO SCH (21:19)
[2019-10-19] MEDS: PRAVASTATIN SOD 40 MG TAB PO SCH (21:19)
[2019-10-20] MEDS: LEVOTHYROXINE SODIUM 125 MCG TABLET PO SCH (06:04)
[2019-10-20 06:34] LABS: BUN Creatinine Ratio 22.4 (10-20); Calcium 7.8 mg/dl (8.5-10.1); Creatinine Clr Calc Pharmacy 12.7 ml/min; Est GFR (African American) 11.2; Est GFR (Non-African American) 9.6; Potassium 4.2 mmol/L (3.5-5.1)
[2019-10-20 07:10] VITALS: BP 131/60; PULSE 60; TEMP 97.7; O2SAT 97
[2019-10-20] MEDS ORDERED: EPOETIN ALFA 20,000 UNITS/ML VIAL SQ ONE (09:00)
[2019-10-20] MEDS: CHOLECALCIFEROL 1,000 UNITS 25 MCG TAB PO SCH (09:01)
[2019-10-20] MEDS: DOXYCYCLINE HYCLATE 100 MG CAP PO SCH (09:01)
[2019-10-20] MEDS: IRON SUCROSE 200 MG in 0.9 % SODIUM CHLORIDE 100 ML IV SCH (09:03)
[2019-10-20] MEDS: CARBIDOPA/LEVODOPA 25/100MG TAB PO SCH ×2 (09:06→12:00)
[2019-10-20] MEDS: CALCIUM ACETATE 667 MG CAP/TAB PO SCH ×2 (09:06→12:06)
[2019-10-20] MEDS: ISOSORBIDE MONO EXTENDED REL 30 MG TABCR PO SCH (09:07)
[2019-10-20] MEDS: AMLODIPINE BESYLATE 5 MG TAB PO SCH (09:08)
[2019-10-20] MEDS: CYANOCOBALAMIN 500 MCG TABLET (VITAMIN B-12) PO SCH (09:08)
[2019-10-20] MEDS: POTASSIUM CHLORIDE 20 MEQ TABCR PO SCH (09:08)
[2019-10-20] MEDS: TORSEMIDE 100 MG TAB PO SCH (09:08)
[2019-10-20] MEDS: BETAHISTINE 16 MG PO SCH (09:09)
[2019-10-20] MEDS: MICONAZOLE NITRATE POWDER 43 GM EXT SCH (09:10)
[2019-10-20] MEDS: INSULIN ASPART 100 UNITS/ML 3 ML PEN SC SCH ×2 (09:15→12:05)
[2019-10-20] MEDS: VENLAFAXINE HCL XR 75 MG CAPXR PO SCH (09:18)
[2019-10-20] MEDS: PREGABALIN 100 MG CAP PO SCH (09:19)
--- NOTE | 2019-10-20 09:27 | Discharge Summary ---
Date of Service October 20, 2019 Admission HPI Per Admitting Provider History obtained from patient, family, and records. Limited history from patient secondary to hearing impairment and lethargy. Medical history significant for chronic diastolic heart failure (EF 50 to 55%, TTE 2019), chronic LBBB, hypertension, hyperlipidemia, RENÉ on CPAP, history PE status post anticoagulation, rheumatoid arthritis, Parkinson's disease, Mnire's disease, anxiety/mood disorder, DM 2 diet-controlled, rheumatoid arthritis as per records, ESRD as per records, hx NAFLD, chronic anemia (baseline hemoglobin 7), history diverticulosis, past tobacco abuse. Recent confinement 3 weeks ago for respiratory failure, sepsis secondary to multifocal pneumonia. Patient discharged on Augmentin course. [place] [facility] [place] October 04 for ESRD. Markedly worse volume overload over the past few days. Patient to be changed to torsemide if Lasix dosing ineffective. Outpatient vascular surgery referral for fistula creation and anemia clinic referral recommended by specialist. The last 3 days, patient noted to be increasingly weak and tired as per . Sleeping a lot. Patient having trouble standing up. No chest pain, S OB, abdominal complaints as per . Few dark stools noted few weeks ago at home after discharge from the hospital as per . No new home medications. Outpatient hemoglobin drawn today noted to be 6.8. Patient directed to the ER by patient's chair lift operator. 1 unit packed RBC given at the ER. 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, lives with Admission Exam Per Admitting Provider GENERAL: Lethargic, disoriented, hard of hearing, morbidly obese,, no respiratory distress SKIN: Pallor, warm HEENT: Pale palpebral conjunctivae, no ptosis, dry buccal mucosa NECK : Supple, short neck, no tenderness CHEST : Decreased breath sounds, no tenderness HEART : RRR, no obvious murmurs ABDOMEN: Some distention, nontender BACK : Ecchymotic areas on the low back, no tenderness RECTAL : Intact sphincter, dark stool (FOBT positive) EXTREMITIES : Focal erythema , RLE, no other conspicuous deformities noted NEUROLOGIC : Lethargic, disoriented, no facial asymmetry, no other gross focality Principal Diagnosis Metabolic encephalopathy End stage renal disease Acute on chronic diastolic heart failure Right leg cellulitis Chronic anemia Discharge Exam Constitutional + well hydrated and + obese; no acute distress Eyes PERRL, conjunctivae normal, anicteric sclerae ENMT Ears: + hearing impairment Respiratory normal respiratory effort; no respiratory distress Auscultation: + diminished lung sounds On nasal oxygen (reports she uses 2-3l/min at home) Cardiovascular Rate/Rhythm: regular rate and regular rhythm S1 S2 Gastrointestinal (Abdomen) normal bowel sounds, soft, nontender, no hepatosplenomegaly Musculoskeletal Mild erythema over RLE almost resolved. No tenderness Neurologic PERRL, EOMI, accommodation nl, no face palsy, no dysarthria Psychiatric A+Ox3, euthymic affect Discharge Data Allergies Allergy/AdvReac Type Severity Reaction Status Date / Time No Known Allergies Allergy Verified 10/14/19 18:56 Consultations 10/14/19 19:45 ED Decision to Admit Stat 10/15/19 00:58 Consult Nephrology Routine 10/15/19 01:23 Consult Gastroenterology Routine Ordered Studies 10/14/19 21:01 CT abd pelvis wo con Urgent Trace pleural effusions. Bibasilar groundglass and patchy consolidative opacities with intralobular septal thickening. Motion degraded exam. Study is limited without use of IV contrast and also secondary to upper extremity positioning. There is no pneumatosis or pneumoperitoneum. Moderate cardiomegaly with coronary artery calcifications. Unremarkable spleen, pancreas and adrenal glands. Mild gallbladder distention appears unchanged. Unremarkable liver. Calcified plaque the abdominal aorta without aneurysm. No adenopathy. Unremarkable appearance of the kidneys. No obstructive uropathy. Mild to moderate urinary bladder distention. Unremarkable uterus. Asymmetric prominence of the left ovary/adnexum compared to the right redemonstrated, 4.5 x 3.4 cm. Mild distal esophageal wall thickening. Multiple nondilated fluid-filled loops of small bowel are present within the lower abdomen and pelvis. Colonic diverticulosis. Moderate fecal retention. The appendix is not definitively seen. Subcutaneous edema of the bilateral flank distributions, left greater than right . There are a few nodular soft tissue attenuating foci of the subcutaneous left flank measuring up to 2.3 x 1.4 cm. Demineralized appearance of the bones. Degenerative changes of the spine, pelvis and hips. No acute fracture identified. Additional subcutaneous nodular focus of the left anterior pelvic wall measures up to 1.6 cm, possibly reflective of an injection granuloma. IMPRESSION: 1. Mild to moderate subcutaneous stranding of the bilateral flank distributions, left greater than right are noted with a few small nodular subcutaneous foci possibly reflective of hematomas on the left. This likely correlates with the reported clinical history of flank bruising. 2. No acute fracture or acute intra-abdominal or intrapelvic abnormality. 3. Cardiomegaly with trace pleural effusions and pulmonary edema. 4. Asymmetric enlargement of the left ovary compared to the right redemonstrated. Correlation with pelvic ultrasound recommended. 5. Moderate fecal retention. CT head/brain wo con Urgent FINDINGS: No acute intracranial hemorrhage, midline shift or mass effect is present. The ventricular system is unremarkable. The basilar cisterns are patent. No extra-axial collections are present. There are no findings to suggest acute dural sinus thrombosis or acute territorial infarct. No significant calvarial abnormalities are present. Postoperative findings within the sinuses are noted. Sinus mucosal thickening is again noted, greatest within the right maxillary sinus. This is similar to CT of August 15, 2019. Left sphenoid opacification has improved since prior exam. There is trace fluid within the bilateral mastoid air cells. IMPRESSION: No acute intracranial findings. 10/16/19 06:14 US pelvic complete Routine The uterus measured 7 cm in greatest linear dimension.. The endometrial stripe measured 6 mm. The right ovary measured poorly seen. The left ovary measured poorly seen. There is no ultrasonographic evidence of ovarian torsion. It should be noted that ovarian torsion can be present with normal Doppler ultrasonographic findings. There was no evidence of pathologic free pelvic fluid. IMPRESSION: 1. Nondiagnostic study of the pelvis. 2. Ovaries not seen possibly due to overlying bowel content US transvaginal Routine Hospital Course (1) Toxic metabolic encephalopathy: Seems to be multifactorial (worsening renal function +/- med effect) CT head on admission showed no acute intracranial abnormality Lyrica decreased from 200mg to 100mg BID Mental status improved Stable CKD Stage V Creatinine [address] pelvis/abd showed Unremarkable appearance of the kidneys. No obstructive uropathy. Mild to moderate urinary bladder distention. Creatinine 4.28 today CKD now progressed from stage 4 to 5, now ESRD Evaluated by nephrology Pt and are OK to proceed with HD if pt will require dialysis during this admission Required IV lasix while inpatient for volume optimization. Discharged on po torsemide Case was discussed by Dr Tran with vascular Dr. Alcazar for dialysis access. Dr. Alcazar plan to do mapping and place dialysis catheter outpatient Get outpatient [facility] Acute on Chronic diastolic heart failure CXR showed pulmonary edema. Echo on 09/03 showed moderate concentric left ventricular hypertrophy. Septal motion is consistent with conduction abnormality. Borderline global hypokinesis of the left ventricle. No regional wall motion abnormalities. Ejection fraction 50 to 55% Diuresed well with Lasix 80mg IV BID Continue Torsemide 100mg daily Check BMP outpatient Continue imdur, hydralazine Acute on Chronic Normocytic Anemia Mostly due to CKD Hgb on admission 6.8 Received 1 units PRBC Gastro on board ad does not plan to scope in this admission Hgb 9.2 yesterday Continue Venofer and Procrit per Nephro Electrolytes imbalance Phosphorus elevated 5.5 Continue Phoslo TID Monitor electrolytes Left Ovarian Enlargement CT pelvis/abd showed asymmetric prominence of the left ovary/adnexum compared to the right redemonstrated, 4.5 x 3.4 cm. Pelvis U/S done nondiagnostic study of the pelvis. Ovaries not seen possibly due to overlying bowel content. Transvaginal u/s showed nondiagnostic study of the pelvis. Ovaries not seen possibly due to overlying bowel content. Need to monitor outpatient RLE cellulitis Completed 5 days of doxycycline therapy Clinically improved Meniere Disease Continue home med Parkinson's Disease Continue Levodopa/Carbidopa Total Time Total Time Spent Total Time Spent (In Minutes): 50 Total Time Includes: Examination of the Patient, Discharge Planning and Other (Called and went over discharge plans with him as well as patient since patient has hearing deficits and does not currently have her hearing aides) Discharge Plan Discharge Items Patient Disposition: Home - Home Health Services Reason For Visit: ENCEPHALOPATHY Discharge Diagnosis: Metabolic encephalopathy End stage renal disease Acute on chronic diastolic heart failure Right leg cellulitis Chronic anemia Activity: Resume your previous activity Non-emergency contact: Primary Care Provider, Bottle Cleaner and Proof Reader Call non-emergency contact if: you have any medication questions and your symptoms worsen Follow-up/Referrals: Sofia Sinclair PA-C [Physician External Grinder] - 11/15/19 10:30 am (11/15/2019 10:30 AM Provider Sofia Sinclair PA-C Department Nephrology [facility] ) Vivek Alcazar MD [Physician] - 10/22/19 9:00 am Bella Power MD [Primary Care Provider] - 10/26/19 2:20 pm (10/26/2019 2:20 PM Provider Bella Rubio MD Department Internal Medicine [facility] ) Diet: Carb Consistent or DM2 and Dialysis Renal Ambulatory Orders: Basic Metabolic Panel (Routine) Timeframe: 3 Days Location: Determined by Patient Ordered By: Betty Enrique Attending Provider Instructions: Mrs Hassan. You came to the hospital for increased weakness and lethargy. You were evaluated and found to have worsening kidney function, heart failure exacerbation and right leg cellulitis. You were treated with medications and your condition improved. Your furosemide was changed to torsemide. You will need to follow up with vascular surgeon for evaluation and placement of dialysis catheter. You also need to follow up with the Proof Reader (kidney doctor) and cardiologust (heart doctor). You have completed antibiotics for your cellulitis. It was a pleasure taking care of you. Pending Studies at Discharge: No Stand-Alone Forms: My [facility] Diet TV, Smoking Cessation Medications and DC Order Prescriptions: New torsemide 100 mg Tablet 100 mg PO QAM 30 Days Qty: 30 RF: 0 calcium acetate(phosphat bind) 667 mg Capsule 667 mg PO TIDM 30 Days Qty: 90 RF: 0 Continued pravastatin [Pravachol] 40 mg Tablet 40 mg PO HS RF: 0 Betahistine Hydrochloride 16 mg PO BID RF: 0 amlodipine 5 mg tablet 5 mg PO QAM RF: 0 carbidopa-levodopa 25-100 mg tablet 1 tab PO TIDM RF: 0 melatonin 10 mg Capsule 10 mg PO HS RF: 0 cyanocobalamin (vitamin B-12) [Vitamin B-12] 1,000 mcg Tablet 1,000 mcg PO QAM RF: 0 levothyroxine 125 mcg tablet 125 mcg PO QAM RF: 0 pregabalin [Lyrica] 200 mg capsule 200 mg PO BID Qty: 60 RF: 0 terazosin 5 mg capsule 5 mg PO HS RF: 0 venlafaxine 75 mg capsule,extended release 24hr 75 mg PO QAM RF: 0 potassium chloride 20 mEq tablet,ER particles/crystals 20 meq PO QAM RF: 0 bupropion HCl 75 mg tablet 75 mg PO BID RF: 0 pramipexole 0.25 mg tablet 0.25 mg PO HS RF: 0 aspirin 81 mg Tablet,Delayed Release (Dr/Ec) 81 mg PO DAILY RF: 0 meclizine 25 mg Tablet 25 mg PO TID PRN (Reason: Dizziness) RF: 0 oxybutynin chloride 5 mg tablet extended release 24hr 5 mg PO DAILY RF: 0 cholecalciferol (vitamin D3) [Vitamin D3] 125 mcg (5,000 unit) Tablet 125 mcg PO DAILY RF: 0 Vitron-C 65 mg iron- 125 mg Tablet,Delayed Release (Dr/Ec) 1 tab PO DAILY RF: 0 isosorbide mononitrate 30 mg tablet extended release 24 hr 30 mg PO DAILY RF: 0 metolazone 2.5 mg tablet 2.5 mg PO 3XWK RF: 0 hydralazine 25 mg tablet 25 mg PO TID RF: 0 Discontinued levofloxacin 250 mg tablet 250 mg PO DAILY RF: 0 furosemide 80 mg tablet 80 mg PO BID RF: 0 Discharge Orders: Discharge Order (Routine); Ordered 10/20/19 Ordered By: Betty Lorenzo/Other Patient Handouts: Managing Type 2 Diabetes Admission Data Admit Date/Time: 10/14/19 22:12 Attending Provider: Betty Gutierrez I. Admit Provider: Hollis Galaviz Primary Care Provider: Bella Power Other Providers: Hollis Galaviz ; Erica Tobar ; Walter Baig ; Mandy Yan ; Sofia Sinclair ; Kevin Bruce ; Jeff Pino ; Gem Moe ; Nate Pierce ; Cielo Roberson ; Ralph Ruelas ; Guadalupe Hernandez ; Garrett Chang ; Renetta Zhong ; Angel Sun ; Charles Chambers ; Stephanie Greenberg ; Jenny Winston ; Ai Hunt ; Sandra Andrade ; Luis Fernando Davila ; Lilian Tran ; [facility] Other Interventions: Discharge Summary Assessment (RN) Last Done: 10/20/19 11:33 DC Date/Time DO NOT enter until pt leaves facility: 10/20/19 12:45
--- NOTE | 2019-10-20 09:43 | Nephrology Progress Note ---
Date of Service October 20, 2019 Assessment & Plan (1) Acute on chronic renal failure: Patient with advanced CKD. She was admitted with severe anemia and progressively worsening renal function. This is likely progressive CKD now stage V and nearing dialysis. There is no indication for dialysis today but will continue to monitor daily for dialysis need. Creatinine at 4.2 and a BUN of 96 today. -From renal standpoint patient can be discharged. Dialysis access will be obtained as an outpatient. She will need a BMP on Friday next week and follow- up with Dr. Busby in 1 to 2 weeks. -Avoid nephrotoxins such as contrast unless lifesaving. -Daily BMP (2) Anemia: Due to renal disease. Continue Procrit weekly. Patient received Procrit last week and will receive 20,000 units subcu today. Hemoglobin of 9.2 yesterday. Patient can continue Venofer and Procrit as an outpatient. (3) Hypokalemia: Due to renal potassium wasting in setting of Lasix. K is 4.2 today. Continue potassium supplements. (4) Acute hypoxemic respiratory failure: Due to pneumonia and fluid overload. She is doing well on oxygen by nasal cannula. Continue torsemide tomorrow 100 mg daily. Patient to be discharged on the same. Admission and Anticipated Discharge Date Admission Date: October 14, 2019 Subjective Patient feels better today denies any shortness of breath or pain. She is on 3 L of oxygen chronically. She was net -608 mL. She is eager to be discharged home. Dialysis access to be arranged as an outpatient. Review of Systems Review of Systems: All systems reviewed & are unremarkable except as noted in HPI & below Physical Exam Physical Exam: General exam: Appears comfortable, no acute distress HEENT: Pupils are equal and reactive to light Neck: No JVD, neck is supple trachea is midline Respiratory system: Clear breath sounds bilaterally. Gastrointestinal: Abdomen is soft, non distended, non tender, bowel sounds are present CVS: Regular rate and rhythm. No murmurs, rubs or gallops Musculoskeletal: No joint or muscle tenderness Extremities: Non tender, no edema, peripheral pulses are present Neuro: Oriented, hard of hearing, no tremors, no focal neurological deficits Skin: No rashes Results & Data ([facility]) Vital Signs (Past 12 Hours) Vital Signs Temp Pulse Pulse Resp BP BP Pulse Ox 10/20/19 07:10 36.5 C 60 20 131/60 97 08/05/20 04:14 68 10/20/19 04:00 36.3 C L 58 L 18 126/61 94 10/19/19 23:16 36.5 C 63 18 121/60 94 Laboratory Results 10/20/19 05:54 (1) Acute on chronic renal failure Acute renal failure type: unspecified Chronic kidney disease stage: stage 5, not on chronic dialysis Qualified Code(s): N17.9 - Acute kidney failure, unspecified; N18.5 - Chronic kidney disease, stage 5 (2) Anemia Anemia type: due to chronic kidney disease Chronic kidney disease stage: stage 4 (severe) Qualified Code(s): N18.4 - Chronic kidney disease, stage 4 (severe); D63.1 - Anemia in chronic kidney disease
== END 2019-10-20 12:45 | disposition home health service (06) | DRG 682 ==
LOC: ED 17:26 → SUATTDRO 22:12 → 2W 22:12

== ENCOUNTER 2019-11-10 16:12 | Inpatient (IN) ==
[~2019-11-10 16:12] MED LIST changes: +ETOMIDATE 2 MG/ML 20 ML VIAL IV ONE; -HydrALAZINE HCL 20 MG/ML VIAL IV ONE; +ROCURONIUM BROMIDE 10 MG/ML 10 ML VIAL IV ONE
[2019-11-10] MEDS ORDERED: ONDANSETRON INJ 2 MG/ML 2 ML VIAL IV STA (16:32)
[2019-11-10] MEDS ORDERED: ONDANSETRON INJ 2 MG/ML 2 ML VIAL ONE (16:34)
[2019-11-10 16:41] LABS: Basophils # (auto) 0.01 K/uL (0-0.2); Basophils % (auto) 0.1 %; Eosinophils % (auto) 2.7 %; Hematocrit (blood only) 31.1 % (37-47); Immature Granulocytes # (auto) 0.07 K/uL (0.00-0.02); Immature Granulocytes % (auto) 0.6 %; Lymphocytes % (auto) 7.3 %; Mean Corpuscular Hemoglobin 28.7 pg (25-34); Mean Corpuscular Hgb Conc 32.2 g/dL (32-36); Mean Corpuscular Volume 89.4 fL (80-100); Mean Platelet Volume 12.1 fL (7.4-10.4); Monocytes % (auto) 8.2 %; Neutrophils # (auto) 8.95 K/uL (1.4-6.5); Neutrophils % (auto) 81.1 %; Platelet Count 168 K/uL (130-400); RDW Standard Deviation 51.5 fL (36.4-46.3); Red Blood Count 3.48 M/uL (4.2-5.4); White Blood Count 11.03 K/uL (4.8-10.8)
[2019-11-10] MEDS ORDERED: SODIUM CHLORIDE 0.9% 500 ML IV SCH (16:45)
[2019-11-10 16:48] LABS: Prothrombin Time 10.6 Seconds (9.0-12.0)
[2019-11-10 16:59] LABS: iSTAT Creatinine 2.7 mg/dl (0.6-1.3); iSTAT Hemoglobin 10.9 g/dl (12.0-16.0); iSTAT Ionized Calcium 0.97 mmol/l (1.12-1.32); iSTAT Potassium 3.7 mmol/L (3.3-5.0)
[2019-11-10 17:02] LABS: Alanine Aminotransferase 103 U/L (12-78); Aspartate Aminotransferase 203 U/L (15-37); BUN Creatinine Ratio 12.4 (10-20); Blood Urea Nitrogen 33 mg/dl (7-18); Calcium 8.2 mg/dl (8.5-10.1); Carbon Dioxide 27 mmol/L (21-32); Chloride 98 mmol/L (98-107); Est GFR (African American) 19.8; Est GFR (Non-African American) 17.1; Glucose 94 mg/dl (70-99); Potassium 3.3 mmol/L (3.5-5.1); Sodium 135 mmol/L (136-145)
[2019-11-10] MEDS ORDERED: PROPOFOL IV EMULSION 10 MG/ML 100 ML VIAL IV ONE (17:05)
[2019-11-10] MEDS ORDERED: RAPID SEQUENCE INDUCTION BAG ONE (17:05)
[2019-11-10 17:13] LABS: Albumin Globulin Ratio 0.6 (0.9-2); Alkaline Phosphatase 675 U/L (45-117); Bilirubin,Total 0.6 mg/dl (0.2-1); Globulin 4.7 gm/dl (2.5-4.0); NT Pro B Type Natriuretic Pept 12312 pg/ml (0-900); Total Protein 7.7 gm/dl (6.4-8.2); Troponin I < 0.015 ng/ml (0-0.045)
[2019-11-10] MEDS ORDERED: ROCURONIUM BROMIDE 10 MG/ML 5 ML VIAL IV ONE (17:15)
[2019-11-10] MEDS ORDERED: ETOMIDATE 2 MG/ML 20 ML VIAL IV ONE (17:15)
[2019-11-10] MEDS: propofoL 1,000 MG/100 ML VIAL IV SCH ×2 (17:17→23:26)
--- NOTE | 2019-11-10 17:22 | XRay Report ---
XR chest 1V portable CLINICAL HISTORY: intubation COMPARISON STUDY: Chest radiograph October 14, 2019. FINDINGS: Tip of endotracheal tube is at the rusty. The tube could be withdrawn 2.5 cm. A dual lumen left-sided central venous catheter is in place. Interstitial thickening and bilateral opacities, gre ater on the left, have increased since exam of October 14, 2019. Cardiomegaly is unchanged. There is no pneumothorax or pleural effusion. IMPRESSION: 1. Tip of endotracheal tube at the rusty. The tube could be withdrawn 2.5 cm. 2. Progression of interstitial thickening and bilateral opacities, greater within the left lung. The findings favor pulmonary edema although pneumonia could appear similar. 3. Stable cardiomegaly. ACT 112: Negative or not required by law. Electronically signed by: Bryn Tanner M.D. 11/10/2019 5:21 PM
--- NOTE | 2019-11-10 17:31 | XRay Report ---
XR chest 1V portable CLINICAL HISTORY: weakness COMPARISON STUDY: Chest radiograph November 10, 2019 at 5:01 PM. FINDINGS: Tip of endotracheal tube is 3.5 cm above above the rusty. A left sided central venous cath eter remains in place. Catheter tip projects over the right atrium. There has been interval of a mode rate right pneumothorax with inferior pleural separation of 4.9 cm. Possible interval mild left media stinal shift is noted. There is no left pneumothorax. Interstitial thickening and airspace opacities, greater within the left lung, are again noted. IMPRESSION: 1. Interval development of a moderate right pneumothorax. Possible interval mild left mediastinal henry ft. Findings discussed with Dr. Finch at time of dictation. 2. Satisfactory positioning of the endotracheal tube. 3. Interstitial thickening and airspace opacities, greater within the left lung. The findings favor p ulmonary edema although pneumonia could appear similar. ACT 112: Negative or not required by law. Electronically signed by: Bryn Tanner M.D. 11/10/2019 5:29 PM
[2019-11-10] MEDS ORDERED: fentaNYL citrate 100 MCG/2 ML VIAL IV STA (17:40)
[2019-11-10] MEDS ORDERED: PIPERACILLIN/TAZOBACTAM 4.5 GM/120 ML BAG IV ONE (17:58)
[2019-11-10] MEDS ORDERED: PIPERACILL/TAZOBAC CONSULT ACTIVE PRN (17:58)
--- NOTE | 2019-11-10 18:19 | XRay Report ---
XR chest 1V portable CLINICAL HISTORY: pigtail COMPARISON STUDY: Chest radiograph November 10, 2019 at 5:08 PM. FINDINGS: A large right pneumothorax has increased in size since prior examination. The right pigtail catheter is within the chest wall and extrathoracic in location. Left-sided dual-lumen central venou s catheter is in place. Position of endotracheal tube is satisfactory. There is interstitial thickeni ng within the left lung. Apparent increased density within the expected location of the collapsed rig ht lung is noted. IMPRESSION: 1. Increase in size of large right pneumothorax with right lung collapse. Pigtail catheter extrathora cic in location. Findings conveyed to Dr. Finch at time of dictation. 2. Interstitial thickening within the left lung. ACT 112: Negative or not required by law. Electronically signed by: Bryn Tanner M.D. 11/10/2019 6:18 PM
--- NOTE | 2019-11-10 18:40 | XRay Report ---
XR chest 1V portable CLINICAL HISTORY: pigtail #2 COMPARISON STUDY: Chest radiograph November 10, 2019 at 5:51 PM. FINDINGS: A large right pneumothorax with right lung collapse is noted. Pigtail catheter is within th e chest wall, extrathoracic in location. Positioning of the endotracheal tube is satisfactory. Dual l umen left-sided central venous catheter is in place. Left lung interstitial thickening is noted. IMPRESSION: 1. Large right pneumothorax with right lung collapse. Pigtail catheter extrathoracic in location. 2. Interstitial thickening within the left lung. 3. Satisfactory positioning of the endotracheal tube. ACT 112: Negative or not required by law. Electronically signed by: Bryn Tanner M.D. 11/10/2019 6:39 PM
--- NOTE | 2019-11-10 19:13 | XRay Report ---
XR chest 1V portable CLINICAL HISTORY: chest tube placed COMPARISON STUDY: Chest radiograph November 10, 2019 at 6:15 PM. FINDINGS: Interval placement of a right apical chest tube is noted. The right pneumothorax is no long er identified. Tip of endotracheal tube is 3.3 cm above the rusty. Left-sided central venous cathete r is in place. Increased right paramediastinal density is noted. There is cardiomegaly. Interstitial thickening within the left lung is noted. There is evidence for right lung volume loss. IMPRESSION: 1. Interval placement of a right-sided chest tube with resolution of the right pneumothorax. 2. Evidence for right lung volume loss with right paramediastinal opacity. This opacity may reflect p artial right lung atelectasis. Other etiologies such as hematoma could appear similar. 3. Satisfactory positioning of the endotracheal tube. ACT 112: Negative or not required by law. Electronically signed by: Bryn Tanner M.D. 11/10/2019 7:12 PM
--- NOTE | 2019-11-10 19:14 | Emergency Department Note ---
Impression & Plan Aspiration pneumonia, AMS (altered mental status), Respiratory failure, Acute UTI, Pneumothorax on right ED Provider Note Provider: Kennedy Finch MD DATE OF SERVICE: 11/10/2019 CHIEF COMPLAINT: Altered mental status HISTORY OF PRESENT ILLNESS: Patient is a 74-year-old female history of pneu monia, CHF, COPD intermittently on 2 L of oxygen, obesity, diabetes who completed her first day of dialysis and at the end of the session around 315 became altered. Came here and was hypoxic in the mid 80s on room air. Alerted by nursing and she vomited immediately upon arrival. Is very somnolent upon arrival and will occasionally answer in a few words but otherwise is unable to write significant history. Discussed with the who denies any significant recent fevers or trauma. He reports the last couple days she has been a little bit tired and using her oxygen more; he states that she seemed a little less sharp than normal. REVIEW OF SYSTEMS: Limited secondary to mental status PAST MEDICAL HISTORY: As noted above MEDICATIONS: Reviewed home medications in the EMR, patient unable provide additional due to mental status SOCIAL HISTORY: Lives at home with , Former smoker. PHYSICAL EXAM: GENERAL: alert to painful stimuli and loud verbal stimuli. Appears very fatigu ed and diaphoretic Head: normocephalic and atraumatic EYES: No injection, discharge or icterus. PERRL NECK: Trachea midline. Supple. ENT: Mucous membranes pink and moist. Some frothy sputum is present. LUNGS: Airway patent. Increased work of breathing and breath sounds diminished throughout HEART: Irregular tachycardic rate and rhythm. No chest wall tenderness ABDOMEN: Soft and non-tender, without guarding or rebound. SKIN: Acyanotic, but diaphoretic. EXTREMITIES: Without swelling, tenderness or deformity except for some slight erythema of the right lower leg. NEUROLOGICAL: Generally follows commands and squeeze bilateral hands with equal associate store director. No facial droop grossly appreciated. Patient will answer a few simple questions but unable provide significant history. EKG: Sinus rhythm 87 bpm with frequent PVCs. Left bundle branch is present. QTC is elongated. No significant ST elevation noted. CONTINUOUS CARDIAC MONITORING: was ordered and showed a heart rate of 84 bpm in normal sinus rhythm with occasional PVC Patient's hypertension was referred to the hospitalist HOSPITAL COURSE: 163 Patient was first seen and H&P performed. 1651 Patient moved to a1 and proceeded with intubation as detailed below. 1708 tube exchange was completed air leak noted post intubation over bougie. Repeat chest x-ray obtained. 1740 first attempt at pigtail placement. 180 second attempt with longer pigtail. 182 chest tube placement. 1834 updated in waiting room. 1909 discussed with ICU physician assistant tennis coach regarding our ICUs comfort managing the chest tube. 2011 discussed with the hospitalist team. CT scans have resulted. 2034 Patient's updated at bedside. Patient begins to stir a bit. Propofol ggt increased. ABG just obtained. Patient's laboratory studies and imaging reviewed. Differential includes Infection, dehydration, metabolic abnormality, hypo/hyperg lycemia, electrolyte disturbance, anemia, hypoxia, cardiac sources, intracerebral event, toxicologic, neurologic, as well as other pathologies. ED chest tube, performed by myself Emergent and with the consent of the patient's . Indication acute hypoxic respiratory failure requiring invasive mechanical ventilation with new right-sided pneumothorax Utilizing sterile gown gloves and shield as well as sterile towel feel with standard precautions and with the standard technique 2 attempts were made at right-sided pigtail placement. Initially utilizing a finder needle aspiration of air was easily retained in the right approximately 3rd-4th intercostal region with dilation after wire placement and a Seldinger technique followed by a 8 [place] 15 cm pigtail. This was secured in place however due to subcutaneous tissue it appears on post chest x-ray that pigtail pulled out of the intrat horacic area. Repeated attempt with a longer 8 [place] pigtail approximately 18 cm without significant complication with catheter over needle with good aspiration of air and this was in place and secured however again this dislodged from the intrathoracic cavity likely due to ample subcutaneous tissue. Given this proceeded with standard 20 [place] chest tube placement over trocar. This was completed without complication and with good return of air. Titling and initial air release was noted with this placement. Was sutured in place with two 1-0 silk sutures. Set up to 20 cm of suction on waterseal. Postprocedure chest x-ray shows placement of the right intrathoracic cavity resolution of the pneumothorax of the 20 [place] tube does curl somewhat towards the apex. Patient was given 2 doses of 50 mcg fentanyl during the procedural attempts for comfort in addition to the propofol drip she is been hand upon. ED Intubation, emergent indication. Performed by myself Indication acute hypoxic respiratory failure. The patient was on 100% oxygen via NRB prior to the procedure. Suction, airway equipment, RSI drugs, respiratory equipment, and appropriate personnel were prepared prior to the initiation of the procedure. A time out was taken. Induction was performed with 20 mg of etomidate and paralysis with 75 mg of rocuronium.. After observing the clinical benefit of the medications, difficulty visualizing the airway with a glide scope with a frothy and edematous oropharyngeal secretions and tissues. 3 attempts were required with a 7.0 size ETT tube was placed atraumatically to 24 cm using standard technique. The cuff inflated without signs of malfunction. There were bilateral breath sounds, positive colormetric change, no gastric sounds and post procedure pulse oximetry was 84%. She did decline into the low 70s during the attempts. Copious again secretions and some trace blood was noted in the airway. Post intubation sedation and paralysis was administered using propofol drip. Post intubation x- ray was obtained and tube was repositioned. Also noted a large tube leak and utilizing a bougie a tube exchange was completed with another 7.0 ET tube. Post intubate x-ray showed a expanding right-sided pneumothorax. IMPRESSION/MEDICAL DECISION MAKING: Patient appears quite somnolent upon arrival hypoxic and likely aspirated when she vomited initially. There is no trauma reported. She is unable to write significant history but does not appear that focal on her exam. Question if her respiratory status declined with underlying CHF and COPD after fluid shift du ring dialysis today which was her first session. Emergently intubated. Difficult intubation with secretions and anterior airway. Did desaturate during this time. Tube exchange required due to cuff leak. Pneumothorax developed likely due to her underlying COPD history and the positive pressure ventilation. Did trial twice a pigtail in the right chest however due to some chest wall depth the subcutaneous tissue was unable to maintain the small bore pigtail's in place in the intrathoracic cavity. A 20 [place] standard chest tube was placed as above with air leak appreciated. Fairly benign abdomen. CT the head, chest, and abdomen pelvis was obtained. Basic labs were obtained. Does not appear to have a significant leukocytosis and lower suspicion for gross sepsis but given her history of critical illness was given a dose of Zosyn here. Cultures were obtained. ABG was delayed due to multiple procedures although I believe she was likely hypercarbic causing her altered mental status earlier as well as hypoxic. Hypoxia signfigantly improved after chest tube. Tolerating the vent well on a propofol drip. No significant electrolyte abnormality. Creatinine is noted but she is end-stage renal. proBNP is elevated again more concerning for possible fluid overload. Do note some transaminitis without significant acute intra- abdominal findings on the CT the abdomen pelvis. Aspiration pneumonia is noted on the CT of the chest. There is no acute intracranial abnormality they q uestion possibly left-sided parotitis on the CT of the head. I did update the patient's who is now at bedside. Difficulty obtaining second blood culture and this was still being attempted after the administration of the Zosyn due to her critical illness. Given concerns for fluid overload she did not receive high IV fluid boluses but likely does not been significantly hypotensive here (other than right after initiation of propofol) or have an elevated lactate. Given her improvement on ventilation with the resolution of the pneumothorax, I would have lower suspicion for acute PE. Discussed with the hospitalist and the ICU PA in house. DIAGNOSIS: Hypoxic hypercarbic acute respiratory failure, altered mental status, right- sided pneumothorax, aspiration pneumonia, acute UTI DISPOSITION: Hospitalist will evaluate Patient's was updated. Critical Care I have personally spent 75 minutes of critical care time in the direct management of this patient. This includes bedside care, interpretation of diagnostic studies, and testing, discussion with consultants, patient, and family members, and other required patient management activities. These 75 minutes is in excess of all separately billable procedures. Past Med/Surg History Medical History (Updated 11/10/19 @ 20:53 by Kennedy Finch M.D.) Chronic diastolic heart failure CKD (chronic kidney disease), stage IV Depression Diabetes mellitus, type II Dyslipidemia Generalized anxiety disorder HTN (hypertension) Hypothyroidism RACHEL (iron deficiency anemia) Meniere's disease RENÉ on CPAP Parkinson disease Restless leg syndrome Rheumatoid arthritis Subdural hematoma Surgical History H/O sinus surgery History of carpal tunnel surgery History of orthopedic surgery " bilat heel surgery" History of tubal ligation Hx of total knee arthroplasty "[facility]" Family History Other AAA (abdominal aortic aneurysm) Diabetes Family history non-contributory Hypertension Myotonic dystrophy Social History Smoking Status: Never smoker Cigarettes Per Day: 0.25ppd; Second Hand Exposure: No; Hx Alcohol Use: No Hx Substance Use: No Preferred Language: Nepali Communication Ability: Effective Cotton Grader Required: No Beliefs That Will Affect Care: None marital status: Current Living Situation: Spouse Current Living Situation Comment: lives in home with and has caregivers Other Information That Helps Us Care for You: No Feels Safe at Home: Yes Safety Concerns: Feels Safe At This Time Allergies Allergies Allergy/AdvReac Type Severity Reaction Status Date / Time No Known Allergies Allergy Verified 10/14/19 18:56 Home Meds Home Medications Medication Instructions Recorded Confirmed Betahistine Hydrochloride 16 mg PO BID 11/18/17 10/14/19 pravastatin [Pravachol] 40 mg PO HS 11/18/17 10/14/19 amlodipine 5 mg PO QAM 08/21/18 10/14/19 carbidopa-levodopa 1 tab PO TIDM 08/21/18 10/14/19 cyanocobalamin (vitamin B-12) 1,000 mcg PO QAM 08/21/18 10/14/19 [Vitamin B-12] levothyroxine 125 mcg PO QAM 08/21/18 10/14/19 melatonin 10 mg PO HS 08/21/18 10/14/19 hydralazine 25 mg PO TID 11/18/18 10/14/19 terazosin 5 mg PO HS 04/20/19 10/14/19 bupropion HCl 75 mg PO BID 08/15/19 10/14/19 potassium chloride 20 meq PO QAM 08/15/19 10/14/19 pramipexole 0.25 mg PO HS 08/15/19 10/14/19 venlafaxine 75 mg PO QAM 08/15/19 10/14/19 Vitron-C 1 tab PO DAILY 09/21/19 10/14/19 aspirin 81 mg PO DAILY 09/21/19 10/14/19 cholecalciferol (vitamin D3) 125 mcg PO DAILY 09/21/19 10/14/19 [Vitamin D3] isosorbide mononitrate 30 mg PO DAILY 09/21/19 10/14/19 meclizine 25 mg PO TID PRN 09/21/19 10/14/19 oxybutynin chloride 5 mg PO DAILY 09/21/19 10/14/19 metolazone 2.5 mg PO 3XWK 10/14/19 10/14/19 Previous Rx's Medication Instructions Recorded pregabalin [Lyrica] 200 mg PO BID #60 cap 08/28/18 calcium acetate(phosphat bind) 667 mg PO TIDM 30 Days #90 cap 10/20/19 torsemide 100 mg PO QAM 30 Days #30 tab 10/20/19 Results & Data (ED) Vital Signs Vital Signs - 24 hr 11/10/19 16:31 11/10/19 16:32 11/10/19 16:36 Temperature 37.1 C Temperature Source Oral Pulse Rate 89 87 Pulse Rate [Right Radial] Pulse Rate from SpO2 Sensor 92 H Respiratory Rate 17 24 Blood Pressure 170/84 H 173/70 H Blood Pressure [Left Arm] Blood Pressure Mean 110 104 Blood Pressure Mean [Left Arm] Blood Pressure Position Lying Pulse Oximetry 83 L 98 Oxygen Delivery Method Nasal Cannula Room Air Oxygen Flow Rate 2 Fraction of Inspired Oxygen SaO2/FiO2 Ratio Sepsis Recent Fever Within 48 Hours No Sepsis New/Unexplained Change in Mental Status Yes Sepsis Action Taken by Nursing Physician Notified End-Tidal CO2 11/10/19 16:41 11/10/19 16:48 11/10/19 16:50 Temperature Temperature Source Pulse Rate 86 89 90 Pulse Rate [Right Radial] Pulse Rate from SpO2 Sensor 88 89 90 Respiratory Rate 22 30 H 18 Blood Pressure 154/111 H Blood Pressure [Left Arm] Blood Pressure Mean 141 Blood Pressure Mean [Left Arm] Blood Pressure Position Pulse Oximetry 84 L 83 L 88 L Oxygen Delivery Method Oxygen Flow Rate Fraction of Inspired Oxygen SaO2/FiO2 Ratio Sepsis Recent Fever Within 48 Hours Sepsis New/Unexplained Change in Mental Status Sepsis Action Taken by Nursing End-Tidal CO2 11/10/19 16:54 11/10/19 16:55 11/10/19 17:00 Temperature Temperature Source Pulse Rate 87 99 H 108 H Pulse Rate [Right Radial] Pulse Rate from SpO2 Sensor 88 99 H 106 H Respiratory Rate 17 25 H 19 Blood Pressure 155/63 H 145/71 H 158/91 H Blood Pressure [Left Arm] Blood Pressure Mean 81 104 121 Blood Pressure Mean [Left Arm] Blood Pressure Position Pulse Oximetry 94 77 L 78 L Oxygen Delivery Method Oxygen Flow Rate Fraction of Inspired Oxygen SaO2/FiO2 Ratio Sepsis Recent Fever Within 48 Hours Sepsis New/Unexplained Change in Mental Status Sepsis Action Taken by Nursing End-Tidal CO2 11/10/19 17:01 11/10/19 17:05 11/10/19 17:08 Temperature Temperature Source Pulse Rate 109 H 104 H 99 H Pulse Rate [Right Radial] Pulse Rate from SpO2 Sensor 109 H 101 H Respiratory Rate 23 13 16 Blood Pressure 182/94 H Blood Pressure [Left Arm] Blood Pressure Mean 125 Blood Pressure Mean [Left Arm] Blood Pressure Position Pulse Oximetry 63 L 77 L 84 L Oxygen Delivery Method Oxygen Flow Rate Fraction of Inspired Oxygen 100 SaO2/FiO2 Ratio Sepsis Recent Fever Within 48 Hours Sepsis New/Unexplained Change in Mental Status Sepsis Action Taken by Nursing End-Tidal CO2 40 11/10/19 17:10 11/10/19 17:15 11/10/19 17:16 Temperature Temperature Source Pulse Rate 99 H 98 H 97 H Pulse Rate [Right Radial] Pulse Rate from SpO2 Sensor 103 H 98 H 97 H Respiratory Rate 16 17 16 Blood Pressure 167/87 H 156/79 H Blood Pressure [Left Arm] Blood Pressure Mean 103 108 Blood Pressure Mean [Left Arm] Blood Pressure Position Pulse Oximetry 84 L 85 L 86 L Oxygen Delivery Method Oxygen Flow Rate Fraction of Inspired Oxygen SaO2/FiO2 Ratio Sepsis Recent Fever Within 48 Hours Sepsis New/Unexplained Change in Mental Status Sepsis Action Taken by Nursing End-Tidal CO2 11/10/19 17:20 11/10/19 17:23 11/10/19 17:30 Temperature Temperature Source Pulse Rate 97 H 99 H 90 Pulse Rate [Right Radial] Pulse Rate from SpO2 Sensor 99 H 98 H 91 H Respiratory Rate 16 20 Blood Pressure 169/80 H 159/88 H Blood Pressure [Left Arm] Blood Pressure Mean 107 120 Blood Pressure Mean [Left Arm] Blood Pressure Position Pulse Oximetry 79 L 83 L 83 L Oxygen Delivery Method Mechanical Vent Mechanical Vent Oxygen Flow Rate Fraction of Inspired Oxygen SaO2/FiO2 Ratio Sepsis Recent Fever Within 48 Hours Sepsis New/Unexplained Change in Mental Status Sepsis Action Taken by Nursing End-Tidal CO2 39 11/10/19 17:42 11/10/19 17:45 11/10/19 17:46 Temperature Temperature Source Pulse Rate 90 89 81 Pulse Rate [Right Radial] Pulse Rate from SpO2 Sensor 91 H 92 H 84 Respiratory Rate Blood Pressure 133/71 137/65 Blood Pressure [Left Arm] Blood Pressure Mean 91 79 Blood Pressure Mean [Left Arm] Blood Pressure Position Pulse Oximetry 88 L 84 L 85 L Oxygen Delivery Method Mechanical Vent Mechanical Vent Mechanical Vent Oxygen Flow Rate Fraction of Inspired Oxygen SaO2/FiO2 Ratio Sepsis Recent Fever Within 48 Hours Sepsis New/Unexplained Change in Mental Status Sepsis Action Taken by Nursing End-Tidal CO2 40 39 36 11/10/19 17:51 11/10/19 17:56 11/10/19 17:58 Temperature Temperature Source Pulse Rate 80 86 84 Pulse Rate [Right Radial] Pulse Rate from SpO2 Sensor 76 78 79 Respiratory Rate Blood Pressure 126/55 L 98/63 L 121/55 L Blood Pressure [Left Arm] Blood Pressure Mean 83 83 58 Blood Pressure Mean [Left Arm] Blood Pressure Position Pulse Oximetry 84 L 86 L 87 L Oxygen Delivery Method Mechanical Vent Mechanical Vent Mechanical Vent Oxygen Flow Rate Fraction of Inspired Oxygen SaO2/FiO2 Ratio Sepsis Recent Fever Within 48 Hours Sepsis New/Unexplained Change in Mental Status Sepsis Action Taken by Nursing End-Tidal CO2 36 38 37 11/10/19 18:00 11/10/19 18:01 11/10/19 18:06 Temperature Temperature Source Pulse Rate 82 87 82 Pulse Rate [Right Radial] Pulse Rate from SpO2 Sensor 82 88 82 Respiratory Rate Blood Pressure 119/50 L 139/45 L Blood Pressure [Left Arm] Blood Pressure Mean 70 84 Blood Pressure Mean [Left Arm] Blood Pressure Position Pulse Oximetry 87 L 85 L 87 L Oxygen Delivery Method Mechanical Vent Mechanical Vent Mechanical Vent Oxygen Flow Rate Fraction of Inspired Oxygen SaO2/FiO2 Ratio Sepsis Recent Fever Within 48 Hours Sepsis New/Unexplained Change in Mental Status Sepsis Action Taken by Nursing End-Tidal CO2 36 33 37 11/10/19 18:11 11/10/19 18:15 11/10/19 18:16 Temperature Temperature Source Pulse Rate 87 84 83 Pulse Rate [Right Radial] Pulse Rate from SpO2 Sensor 85 83 82 Respiratory Rate Blood Pressure 117/70 137/63 Blood Pressure [Left Arm] Blood Pressure Mean 98 70 Blood Pressure Mean [Left Arm] Blood Pressure Position Pulse Oximetry 88 L 88 L 88 L Oxygen Delivery Method Mechanical Vent Mechanical Vent Mechanical Vent Oxygen Flow Rate Fraction of Inspired Oxygen SaO2/FiO2 Ratio Sepsis Recent Fever Within 48 Hours Sepsis New/Unexplained Change in Mental Status Sepsis Action Taken by Nursing End-Tidal CO2 16 38 31 11/10/19 18:21 11/10/19 18:22 11/10/19 18:26 Temperature Temperature Source Pulse Rate 82 83 82 Pulse Rate [Right Radial] Pulse Rate from SpO2 Sensor 82 83 90 Respiratory Rate Blood Pressure 139/61 134/62 Blood Pressure [Left Arm] Blood Pressure Mean 76 77 Blood Pressure Mean [Left Arm] Blood Pressure Position Pulse Oximetry 90 90 89 L Oxygen Delivery Method Mechanical Vent Oxygen Flow Rate Fraction of Inspired Oxygen SaO2/FiO2 Ratio Sepsis Recent Fever Within 48 Hours Sepsis New/Unexplained Change in Mental Status Sepsis Action Taken by Nursing End-Tidal CO2 31 36 31 11/10/19 18:30 11/10/19 18:31 11/10/19 18:36 Temperature Temperature Source Pulse Rate 84 81 83 Pulse Rate [Right Radial] Pulse Rate from SpO2 Sensor 82 84 85 Respiratory Rate Blood Pressure 137/71 135/69 Blood Pressure [Left Arm] Blood Pressure Mean 95 75 Blood Pressure Mean [Left Arm] Blood Pressure Position Pulse Oximetry 90 90 91 Oxygen Delivery Method Oxygen Flow Rate Fraction of Inspired Oxygen SaO2/FiO2 Ratio Sepsis Recent Fever Within 48 Hours Sepsis New/Unexplained Change in Mental Status Sepsis Action Taken by Nursing End-Tidal CO2 32 35 12 11/10/19 18:41 11/10/19 18:45 11/10/19 18:46 Temperature Temperature Source Pulse Rate 83 83 78 Pulse Rate [Right Radial] Pulse Rate from SpO2 Sensor 80 83 77 Respiratory Rate Blood Pressure 129/65 137/63 Blood Pressure [Left Arm] Blood Pressure Mean 114 70 Blood Pressure Mean [Left Arm] Blood Pressure Position Pulse Oximetry 97 96 97 Oxygen Delivery Method Oxygen Flow Rate Fraction of Inspired Oxygen SaO2/FiO2 Ratio Sepsis Recent Fever Within 48 Hours Sepsis New/Unexplained Change in Mental Status Sepsis Action Taken by Nursing End-Tidal CO2 38 26 37 11/10/19 18:51 11/10/19 18:57 11/10/19 19:00 Temperature Temperature Source Pulse Rate 78 86 80 Pulse Rate [Right Radial] Pulse Rate from SpO2 Sensor 80 107 H 82 Respiratory Rate Blood Pressure 136/80 115/88 Blood Pressure [Left Arm] Blood Pressure Mean 90 92 Blood Pressure Mean [Left Arm] Blood Pressure Position Pulse Oximetry 97 92 95 Oxygen Delivery Method Oxygen Flow Rate Fraction of Inspired Oxygen SaO2/FiO2 Ratio Sepsis Recent Fever Within 48 Hours Sepsis New/Unexplained Change in Mental Status Sepsis Action Taken by Nursing End-Tidal CO2 36 37 32 11/10/19 19:02 11/10/19 19:07 11/10/19 19:15 Temperature Temperature Source Pulse Rate 81 79 80 Pulse Rate [Right Radial] Pulse Rate from SpO2 Sensor 79 84 82 Respiratory Rate Blood Pressure 130/76 134/64 122/70 Blood Pressure [Left Arm] Blood Pressure Mean 98 66 108 Blood Pressure Mean [Left Arm] Blood Pressure Position Pulse Oximetry 98 99 99 Oxygen Delivery Method Oxygen Flow Rate Fraction of Inspired Oxygen SaO2/FiO2 Ratio Sepsis Recent Fever Within 48 Hours Sepsis New/Unexplained Change in Mental Status Sepsis Action Taken by Nursing End-Tidal CO2 27 36 38 11/10/19 19:16 11/10/19 19:21 11/10/19 19:26 Temperature Temperature Source Pulse Rate 77 78 81 Pulse Rate [Right Radial] Pulse Rate from SpO2 Sensor 85 76 84 Respiratory Rate Blood Pressure 128/75 118/81 Blood Pressure [Left Arm] Blood Pressure Mean 88 93 Blood Pressure Mean [Left Arm] Blood Pressure Position Pulse Oximetry 99 99 99 Oxygen Delivery Method Oxygen Flow Rate Fraction of Inspired Oxygen SaO2/FiO2 Ratio Sepsis Recent Fever Within 48 Hours Sepsis New/Unexplained Change in Mental Status Sepsis Action Taken by Nursing End-Tidal CO2 38 33 27 11/10/19 19:27 11/10/19 19:30 11/10/19 19:52 Temperature Temperature Source Pulse Rate 78 78 81 Pulse Rate [Right Radial] Pulse Rate from SpO2 Sensor 84 79 83 Respiratory Rate Blood Pressure Blood Pressure [Left Arm] Blood Pressure Mean Blood Pressure Mean [Left Arm] Blood Pressure Position Pulse Oximetry 100 99 97 Oxygen Delivery Method Oxygen Flow Rate Fraction of Inspired Oxygen SaO2/FiO2 Ratio Sepsis Recent Fever Within 48 Hours Sepsis New/Unexplained Change in Mental Status Sepsis Action Taken by Nursing End-Tidal CO2 32 37 40 11/10/19 19:53 11/10/19 19:55 11/10/19 20:00 Temperature Temperature Source Pulse Rate 84 77 79 Pulse Rate [Right Radial] Pulse Rate from SpO2 Sensor 88 84 Respiratory Rate 19 Blood Pressure 142/83 H Blood Pressure [Left Arm] Blood Pressure Mean 98 Blood Pressure Mean [Left Arm] Blood Pressure Position Pulse Oximetry 97 96 96 Oxygen Delivery Method Oxygen Flow Rate Fraction of Inspired Oxygen 100 SaO2/FiO2 Ratio Sepsis Recent Fever Within 48 Hours Sepsis New/Unexplained Change in Mental Status Sepsis Action Taken by Nursing End-Tidal CO2 40 40 39 11/10/19 20:01 11/10/19 20:15 11/10/19 20:35 Temperature 36.8 C Temperature Source Oral Pulse Rate 78 79 Pulse Rate [Right Radial] 70 Pulse Rate from SpO2 Sensor 87 83 Respiratory Rate 31 H Blood Pressure 146/65 H Blood Pressure [Left Arm] 119/47 L Blood Pressure Mean 104 Blood Pressure Mean [Left Arm] 71 Blood Pressure Position Pulse Oximetry 96 95 96 Oxygen Delivery Method Mechanical Vent Oxygen Flow Rate Fraction of Inspired Oxygen 70 SaO2/FiO2 Ratio 137 Sepsis Recent Fever Within 48 Hours Sepsis New/Unexplained Change in Mental Status Sepsis Action Taken by Nursing End-Tidal CO2 39 33 Laboratory Data Result diagrams: 11/10/19 16:29 11/10/19 16:29 Lab Results 11/10/19 11/10/19 11/10/19 Range/Units 16:29 16:29 16:29 WBC 11.03 H (4.8-10.8) K/uL RBC 3.48 L (4.2-5.4) M/uL Hgb 10.0 L (12.0-16.0) g/dL POC Hgb (12.0-16.0) g/dl Hct 31.1 L (37-47) % POC Hct (37-47) % MCV 89.4 (80-100) fL MCH 28.7 (25-34) pg MCHC 32.2 (32-36) g/dL RDW Std Deviation 51.5 H (36.4-46.3) fL RDW Coeff of Bhavin 16.0 H (11.5-14.5) % Plt Count 168 (130-400) K/uL MPV 12.1 H (7.4-10.4) fL Immature Gran % (Auto) 0.6 % Neut % (Auto) 81.1 % Lymph % (Auto) 7.3 % [place] % (Auto) 8.2 % Eos % (Auto) 2.7 % Baso % (Auto) 0.1 % Neut # (Auto) 8.95 H (1.4-6.5) K/uL Lymph # (Auto) 0.80 L (1.2-3.4) K/uL [place] # (Auto) 0.90 H (0.11-0.59) K/uL Eos # (Auto) 0.30 (0-0.5) K/uL Baso # (Auto) 0.01 (0-0.2) K/uL Immature Gran # (Auto) 0.07 H (0.00-0.02) K/uL PT 10.6 (9.0-12.0) Seconds INR 1.0 (0.9-1.1) ABG pH (7.35-7.45) ABG pCO2 (35-46) mmHg ABG pO2 (80-95) mmHg ABG HCO3 (19-24) mmol/L ABG O2 Saturation (90-95) % ABG Base Excess (-9-1.8) mEq/L Richard Test (Pos) Barometric Pressure mm/Hg Oxygen Given POC Sodium (135-144) mmol/L Sodium 135 L (136-145) mmol/L POC Potassium (3.3-5.0) mmol/L Potassium 3.3 L (3.5-5.1) mmol/L POC Chloride (101-112) mmol/L Chloride 98 (98-107) mmol/L Carbon Dioxide 27 (21-32) mmol/L POC Total CO2 (24-31) mmol/L Anion Gap 9.0 (3-11) POC Anion Gap (16-25) mmol/L POC BUN (7-18) mg/dl BUN 33 H (7-18) mg/dl Creatinine 2.66 H (0.6-1.2) mg/dl POC Creatinine (0.6-1.3) mg/dl Est Cr Clr Drug Dosing Not Reportable Est GFR ( Amer) 19.8 Est GFR (Non-Af Amer) 17.1 BUN/Creatinine Ratio 12.4 (10-20) Glucose 94 (70-99) mg/dl POC Glucose (other) (70-99) mg/dl Lactate (0.4-2.0) mmol/L Calcium 8.2 L (8.5-10.1) mg/dl POC Ioniz Calcium Oh (1.12-1.32) mmol/l Magnesium 2.0 (1.8-2.4) mg/dl Total Bilirubin 0.6 (0.2-1) mg/dl AST 203 H (15-37) U/L ALT 103 H (12-78) U/L Alkaline Phosphatase 675 H (45-117) U/L Troponin I < 0.015 (0-0.045) ng/ml NT-Pro-B Natriuret Pep 49607 H (0-900) pg/ml Total Protein 7.7 (6.4-8.2) gm/dl Albumin 3.0 L (3.4-5.0) gm/dl Globulin 4.7 H (2.5-4.0) gm/dl Albumin/Globulin Ratio 0.6 L (0.9-2) Procalcitonin TSH 2.000 (0.300-4.500) uIu/ml Urine Color Urine Appearance (Clear) Urine pH (4.5-7.5) Ur Specific [place] (1.000-1.030) Urine Protein (Negative) Urine Glucose (UA) (Negative) Urine Ketones (Negative) Urine Blood (Negative) Urine Nitrite (Negative) Urine Bilirubin (Negative) Urine Urobilinogen (Negative) Ur Leukocyte Esterase (Negative) Urine WBC (Auto) (0-5) /hpf Urine RBC (Auto) (0-4) /hpf U Hyaline Cast (Auto) (0-5) /lpf U Epithel Cells (Auto) (0-5) /lpf Urine Bacteria (Auto) (Negative) Urine Yeast 11/10/19 11/10/19 11/10/19 Range/Units 16:29 16:34 17:31 WBC (4.8-10.8) K/uL RBC (4.2-5.4) M/uL Hgb (12.0-16.0) g/dL POC Hgb 10.9 L (12.0-16.0) g/dl Hct (37-47) % POC Hct 32 L (37-47) % MCV (80-100) fL MCH (25-34) pg MCHC (32-36) g/dL RDW Std Deviation (36.4-46.3) fL RDW Coeff of Bhavin (11.5-14.5) % Plt Count (130-400) K/uL MPV (7.4-10.4) fL Immature Gran % (Auto) % Neut % (Auto) % Lymph % (Auto) % [place] % (Auto) % Eos % (Auto) % Baso % (Auto) % Neut # (Auto) (1.4-6.5) K/uL Lymph # (Auto) (1.2-3.4) K/uL [place] # (Auto) (0.11-0.59) K/uL Eos # (Auto) (0-0.5) K/uL Baso # (Auto) (0-0.2) K/uL Immature Gran # (Auto) (0.00-0.02) K/uL PT (9.0-12.0) Seconds INR (0.9-1.1) ABG pH (7.35-7.45) ABG pCO2 (35-46) mmHg ABG pO2 (80-95) mmHg ABG HCO3 (19-24) mmol/L ABG O2 Saturation (90-95) % ABG Base Excess (-9-1.8) mEq/L Richard Test (Pos) Barometric Pressure mm/Hg Oxygen Given POC Sodium 135 (135-144) mmol/L Sodium (136-145) mmol/L POC Potassium 3.7 (3.3-5.0) mmol/L Potassium (3.5-5.1) mmol/L POC Chloride 96 L (101-112) mmol/L Chloride (98-107) mmol/L Carbon Dioxide (21-32) mmol/L POC Total CO2 31 (24-31) mmol/L Anion Gap (3-11) POC Anion Gap 13.0 L (16-25) mmol/L POC BUN 40 H (7-18) mg/dl BUN (7-18) mg/dl Creatinine (0.6-1.2) mg/dl POC Creatinine 2.7 H (0.6-1.3) mg/dl Est Cr Clr Drug Dosing Est GFR ( Amer) Est GFR (Non-Af Amer) BUN/Creatinine Ratio (10-20) Glucose (70-99) mg/dl POC Glucose (other) 96 (70-99) mg/dl Lactate 0.7 (0.4-2.0) mmol/L Calcium (8.5-10.1) mg/dl POC Ioniz Calcium Oh 0.97 L (1.12-1.32) mmol/l Magnesium (1.8-2.4) mg/dl Total Bilirubin (0.2-1) mg/dl AST (15-37) U/L ALT (12-78) U/L Alkaline Phosphatase (45-117) U/L Troponin I (0-0.045) ng/ml NT-Pro-B Natriuret Pep (0-900) pg/ml Total Protein (6.4-8.2) gm/dl Albumin (3.4-5.0) gm/dl Globulin (2.5-4.0) gm/dl Albumin/Globulin Ratio (0.9-2) Procalcitonin Cancelled TSH (0.300-4.500) uIu/ml Urine Color Urine Appearance (Clear) Urine pH (4.5-7.5) Ur Specific [place] (1.000-1.030) Urine Protein (Negative) Urine Glucose (UA) (Negative) Urine Ketones (Negative) Urine Blood (Negative) Urine Nitrite (Negative) Urine Bilirubin (Negative) Urine Urobilinogen (Negative) Ur Leukocyte Esterase (Negative) Urine WBC (Auto) (0-5) /hpf Urine RBC (Auto) (0-4) /hpf U Hyaline Cast (Auto) (0-5) /lpf U Epithel Cells (Auto) (0-5) /lpf Urine Bacteria (Auto) (Negative) Urine Yeast 11/10/19 11/10/19 Range/Units 19:27 20:26 WBC (4.8-10.8) K/uL RBC (4.2-5.4) M/uL Hgb (12.0-16.0) g/dL POC Hgb (12.0-16.0) g/dl Hct (37-47) % POC Hct (37-47) % MCV (80-100) fL MCH (25-34) pg MCHC (32-36) g/dL RDW Std Deviation (36.4-46.3) fL RDW Coeff of Bhavin (11.5-14.5) % Plt Count (130-400) K/uL MPV (7.4-10.4) fL Immature Gran % (Auto) % Neut % (Auto) % Lymph % (Auto) % [place] % (Auto) % Eos % (Auto) % Baso % (Auto) % Neut # (Auto) (1.4-6.5) K/uL Lymph # (Auto) (1.2-3.4) K/uL [place] # (Auto) (0.11-0.59) K/uL Eos # (Auto) (0-0.5) K/uL Baso # (Auto) (0-0.2) K/uL Immature Gran # (Auto) (0.00-0.02) K/uL PT (9.0-12.0) Seconds INR (0.9-1.1) ABG pH 7.39 (7.35-7.45) ABG pCO2 46 (35-46) mmHg ABG pO2 75 L (80-95) mmHg ABG HCO3 27 H (19-24) mmol/L ABG O2 Saturation 94.0 (90-95) % ABG Base Excess 2.1 H (-9-1.8) mEq/L Richard Test POS (Pos) Barometric Pressure 730.7 mm/Hg Oxygen Given 70% FiO2 POC Sodium (135-144) mmol/L Sodium (136-145) mmol/L POC Potassium (3.3-5.0) mmol/L Potassium (3.5-5.1) mmol/L POC Chloride (101-112) mmol/L Chloride (98-107) mmol/L Carbon Dioxide (21-32) mmol/L POC Total CO2 (24-31) mmol/L Anion Gap (3-11) POC Anion Gap (16-25) mmol/L POC BUN (7-18) mg/dl BUN (7-18) mg/dl Creatinine (0.6-1.2) mg/dl POC Creatinine (0.6-1.3) mg/dl Est Cr Clr Drug Dosing Est GFR ( Amer) Est GFR (Non-Af Amer) BUN/Creatinine Ratio (10-20) Glucose (70-99) mg/dl POC Glucose (other) (70-99) mg/dl Lactate (0.4-2.0) mmol/L Calcium (8.5-10.1) mg/dl POC Ioniz Calcium Oh (1.12-1.32) mmol/l Magnesium (1.8-2.4) mg/dl Total Bilirubin (0.2-1) mg/dl AST (15-37) U/L ALT (12-78) U/L Alkaline Phosphatase (45-117) U/L Troponin I (0-0.045) ng/ml NT-Pro-B Natriuret Pep (0-900) pg/ml Total Protein (6.4-8.2) gm/dl Albumin (3.4-5.0) gm/dl Globulin (2.5-4.0) gm/dl Albumin/Globulin Ratio (0.9-2) Procalcitonin TSH (0.300-4.500) uIu/ml Urine Color [place] Urine Appearance Turbid A (Clear) Urine pH 6.5 (4.5-7.5) Ur Specific [place] 1.011 (1.000-1.030) Urine Protein 3+ H (Negative) Urine Glucose (UA) Negative (Negative) Urine Ketones Negative (Negative) Urine Blood 3+ H (Negative) Urine Nitrite Negative (Negative) Urine Bilirubin Negative (Negative) Urine Urobilinogen Negative (Negative) Ur Leukocyte Esterase 3+ H (Negative) Urine WBC (Auto) >30 H (0-5) /hpf Urine RBC (Auto) >30 H (0-4) /hpf U Hyaline Cast (Auto) 1-5 (0-5) /lpf U Epithel Cells (Auto) >30 H (0-5) /lpf Urine Bacteria (Auto) Negative (Negative) Urine Yeast Not Reportable Administered Medications Propofol (Diprivan) 1,000 mg in 100 mls @ 8.64 mls/hr IV .[id number] [facility]; Protocol Stop: 11/13/19 17:14 Last Admin: 11/10/19 17:17 Dose: 15 mcg/kg/min, 8.6 mls/hr Documented by: [id number] Cosigned by: [id number] Discontinued Medications Etomidate (Etomidate 2 Mg/Ml 20 Ml Vial) 20 mg IV NOW ONE Stop: 11/10/19 17:16 Last Admin: 11/10/19 17:14 Dose: 20 mg Documented by: [id number] Fentanyl Citrate (Fentanyl Citrate 100 Mcg/2 Ml Vial) 50 mcg IV NOW STA Stop: 11/10/19 17:41 Last Admin: 11/10/19 19:19 Dose: 50 mcg Documented by: [id number] Sodium Chloride (Nss) 500 mls @ 999 mls/hr IV .[id number] [facility] Stop: 11/10/19 17:15 Last Infusion: 11/10/19 17:17 Dose: 999 mls/hr Documented by: [id number] Admin: 11/10/19 16:35 Dose: 999 mls/hr Documented by: [id number] Piperacillin Sod/Tazobactam Sod (Zosyn) 4.5 gm in 120 mls @ 240 mls/hr IV NOW ONE Stop: 11/10/19 18:27 Last Infusion: 11/10/19 20:00 Dose: 0 mls/hr Documented by: [id number] Admin: 11/10/19 19:19 Dose: 240 mls/hr Documented by: [id number] Miscellaneous (Rapid Sequence Induction Bag) Confirm Administered Dose 1 ea .ROUTE .STK-MED ONE Stop: 11/10/19 17:06 Last Admin: 11/10/19 17:15 Dose: 1 ea Documented by: [id number] Ondansetron HCl (Ondansetron Inj 2 Mg/Ml 2 Ml Vial) 4 mg IV NOW STA Stop: 11/10/19 16:33 Last Admin: 11/10/19 16:35 Dose: 4 mg Documented by: [id number] Ondansetron HCl (Ondansetron Inj 2 Mg/Ml 2 Ml Vial) Confirm Administered Dose 4 mg .ROUTE .STK-MED ONE Stop: 11/10/19 16:35 Last Admin: 11/10/19 16:35 Dose: Not Given Documented by: [id number] Propofol (Propofol Iv Emulsion 10 Mg/Ml 100 Ml Vial) Confirm Administered Dose 1,000 mg IV .STK-MED ONE Stop: 11/10/19 17:06 Last Admin: 11/10/19 17:21 Dose: Not Given Documented by: [id number] Rocuronium Dagmar (Rocuronium Dagmar 10 Mg/Ml 5 Ml Vial) 75 mg IV NOW ONE Stop: 11/10/19 17:16 Last Admin: 11/10/19 17:16 Dose: 75 mg Documented by: [id number] Cosigned by: [id number] Discharge Plan Visit Data Chief Complaint: Lethargic ED Provider: Kennedy Finch Discharge Problem: Aspiration pneumonia, AMS (altered mental status), Respiratory failure, Acute UTI, Pneumothorax on right Patient Disposition: Being Evaluated by Hospitalist Condition: Critical Forms Stand Alone Forms: My [facility] [employer] Prescriptions Prescriptions: No Action pravastatin [Pravachol] 40 mg Tablet 40 mg PO HS RF: 0 Betahistine Hydrochloride 16 mg PO BID RF: 0 amlodipine 5 mg tablet 5 mg PO QAM RF: 0 carbidopa-levodopa 25-100 mg tablet 1 tab PO TIDM RF: 0 melatonin 10 mg Capsule 10 mg PO HS RF: 0 cyanocobalamin (vitamin B-12) [Vitamin B-12] 1,000 mcg Tablet 1,000 mcg PO QAM RF: 0 levothyroxine 125 mcg tablet 125 mcg PO QAM RF: 0 pregabalin [Lyrica] 200 mg capsule 200 mg PO BID Qty: 60 RF: 0 terazosin 5 mg capsule 5 mg PO HS RF: 0 venlafaxine 75 mg capsule,extended release 24hr 75 mg PO QAM RF: 0 potassium chloride 20 mEq tablet,ER particles/crystals 20 meq PO QAM RF: 0 bupropion HCl 75 mg tablet 75 mg PO BID RF: 0 pramipexole 0.25 mg tablet 0.25 mg PO HS RF: 0 aspirin 81 mg Tablet,Delayed Release (Dr/Ec) 81 mg PO DAILY RF: 0 meclizine 25 mg Tablet 25 mg PO TID PRN (Reason: Dizziness) RF: 0 oxybutynin chloride 5 mg tablet extended release 24hr 5 mg PO DAILY RF: 0 cholecalciferol (vitamin D3) [Vitamin D3] 125 mcg (5,000 unit) Tablet 125 mcg PO DAILY RF: 0 Vitron-C 65 mg iron- 125 mg Tablet,Delayed Release (Dr/Ec) 1 tab PO DAILY RF: 0 isosorbide mononitrate 30 mg tablet extended release 24 hr 30 mg PO DAILY RF: 0 metolazone 2.5 mg tablet 2.5 mg PO 3XWK RF: 0 torsemide 100 mg Tablet 100 mg PO QAM 30 Days Qty: 30 RF: 0 calcium acetate(phosphat bind) 667 mg Capsule 667 mg PO TIDM 30 Days Qty: 90 RF: 0 hydralazine 25 mg tablet 25 mg PO TID RF: 0 Referrals Referrals: Bella Power MD [Primary Care Provider] - Discharge Problem: Aspiration pneumonia Qualifiers: Aspiration pneumonia type: due to vomit Laterality: bilateral Lung location: lower lobe of lung Qualified Code(s): J69.0 - Pneumonitis due to inhalation of food and vomit AMS (altered mental status) Qualifiers: Altered mental status type: somnolence Qualified Code(s): R40.0 - Somnolence Respiratory failure Qualifiers: Chronicity: acute on chronic Respiratory failure complication: hypoxia and hypercapnia Qualified Code(s): J96.21 - Acute and chronic respiratory failure with hypoxia
[2019-11-10 19:47] LABS: Appearance Urine Turbid (Clear); Bacteria Urine Automated Negative (Negative); Bilirubin Urine Negative (Negative); Blood Urine 3+ (Negative); Color Urine Orange; Epithelial Cell Urine Auto >30 /lpf (0-5); Glucose Urine UA Negative (Negative); Ketones Urine Negative (Negative); Leukocyte Esterase Urine 3+ (Negative); Nitrite Urine Negative (Negative); Protein Urine 3+ (Negative); Specific Gravity Urine 1.011 (1.000-1.030); Urobilinogen Urine Negative (Negative); WBC Urine Automated >30 /hpf (0-5); pH Urine 6.5 (4.5-7.5)
--- NOTE | 2019-11-10 20:01 | CT Scan Report ---
CT OF THE CHEST WITHOUT IV CONTRAST CLINICAL HISTORY: hypoxic COMPARISON STUDY: Chest radiograph November 10, 2019 at 6:[address] April 20, 2019. TECHNIQUE: Axial images of the chest were obtained without IV contrast. Images were reviewed in the axial, sagittal, and coronal planes. IV contrast was not administered for this examination. Automat ed exposure control was utilized for the study. A dose lowering technique was utilized adhering to t he principles of ALARA. FINDINGS: Left internal jugular dual lumen catheter is in place. Catheter tip is within the right at rium. Right apical chest tube is in place. Trace right apical pneumothorax is noted. There is a trace right pneumothorax. Endotracheal tube is satisfactorily positioned. Extensive consolidation within b oth lower lobes, greater on the right. Additional interstitial thickening in bilateral airspace opaci ties are noted within the lungs. This may extend through a fissure. Alternatively, this may be partly parenchymal in location. Megaly is unchanged. There is no pericardial effusion. There is gas within the right chest wall and breasts from chest tube insertion. The abdomen and pelvis will be reported s eparately. IMPRESSION: 1. Satisfactory positioning of the endotracheal tube. 2. Trace residual right pneumothorax following chest tube insertion. Chest tube may extend within a f issure. Alternatively, this may be partly parenchymal location. Mild adjacent airspace opacity. 3. Extensive bilateral lower lobe consolidation, greater on the right. The findings may reflect pneum onia or aspiration pneumonitis. 4. Additional interstitial thickening and bilateral airspace opacities which may reflect pulmonary ed vaishnavi or an infectious process. 5. Stable cardiomegaly. ACT 112: Negative or not required by law. Electronically signed by: Bryn Tanner M.D. 11/10/2019 8:00 PM
--- NOTE | 2019-11-10 20:05 | CT Scan Report ---
CT OF THE HEAD WITHOUT CONTRAST CLINICAL HISTORY: Altered mental status. COMPARISON STUDY: Head CT October 14, 2019. CT DOSE: 3389.89 mGy.cm TECHNIQUE: Helical axial images of the head were obtained without IV contrast. Automated exposure con trol was utilized for the study. A dose lowering technique was utilized adhering to the principles o f ALARA. FINDINGS: No acute intracranial hemorrhage, midline shift or mass effect is present. The ventricular system is unremarkable. The basilar cisterns are patent. No extra-axial collections are present. Ther e are no findings to suggest acute dural sinus thrombosis or acute territorial infarct. No significan t calvarial abnormalities are present. Right maxillary and left sphenoid sinus opacification is uncha nged. There are post surgical findings within the sinuses. Secretions within the nasopharynx are from intubation.. Note is made of a left periparotid infiltration, partially imaged on this exam. IMPRESSION: 1. No acute intracranial findings. 2. Left periparotid infiltration which is new since CT of October 14, 2019. This favors parotitis althou gh cellulitis could appear similar. ACT 112: Negative or not required by law. Electronically signed by: Bryn Tanner M.D. 11/10/2019 8:03 PM
[2019-11-10 20:08] LABS: RBC Urine Automated >30 /hpf (0-4)
--- NOTE | 2019-11-10 20:09 | CT Scan Report ---
CT OF THE ABDOMEN AND PELVIS WITHOUT CONTRAST CLINICAL HISTORY: hypoxic COMPARISON STUDY: CT of the abdomen and pelvis October 14, 2019. Pelvic ultrasound October 16, 2019. TECHNIQUE: Axial images of the abdomen and pelvis were obtained without IV contrast. Images were revi ewed in the axial, sagittal, and coronal planes. Automated exposure control was utilized for the shaheed dy. A dose lowering technique was utilized adhering to the principles of ALARA. FINDINGS: Please note that the chest will be reported separately. Extensive bilateral lower lobe cons olidation is noted. A right chest tube is partially imaged with gas within the right breast and chest wall. Trace residual right pneumothorax is noted. Cardiomegaly is noted. Evaluation of the abdomen a nd pelvis is suboptimal on this unenhanced examination. Unenhanced images of the liver, spleen, adren al glands, kidneys and pancreas are unremarkable. There is no evidence for a bowel obstruction. Calib er of small and large bowel are normal.. A Kirby balloon is present within the bladder. No suspicious osseous lesions are noted. No acute fracture is noted. There is no adenopathy or abscess within the abdomen or the pelvis. No hydronephrosis is present. Severe osteoarthritis of both hips is incidental ly noted. IMPRESSION: 1. No acute process within the abdomen or pelvis on unenhanced exam. 2. Dense bilateral lower lobe consolidation, trace right pneumothorax and right-sided chest tube, bet ter depicted on the chest CT. Please see that report for further description. ACT 112: Negative or not required by law. Electronically signed by: Bryn Tanner M.D. 11/10/2019 8:08 PM
[2019-11-10 20:36] LABS: Base Excess ABG 2.1 mEq/L (-9-1.8); HCO3 ABG 27 mmol/L (19-24); PCO2 ABG 46 mmHg (35-46); PO2 ABG 75 mmHg (80-95); pH ABG 7.39 (7.35-7.45)
[2019-11-10 20:37] LABS: Allen Test POS (Pos)
--- NOTE | 2019-11-10 20:42 | History & Physical Report ---
Date of Service November 10, 2019 Assessment & Plan (1) Respiratory failure: multifactorial : Aspiration pneumonia, secondary to encephalopathy from possible dialysis disequilibrium, home neuropsychotropic meds sp intubation Post intubation pneumothorax R status post chest tube placement hx COPD as per records Hemoptysis secondary to aspiration pneumonia, hemoglobin currently stable chronic diastolic heart failure (EF 50 to 55%, TTE 2019), pulmonary congestion secondary ESRD hypertension, BP stable history PE status post anticoagulation Chronic LBBB History non-ST elevation MN as per records hx rheumatoid arthritis hx Parkinson's disease DM 2 diet-controlled, well-controlled as of recent hemoglobin A1c of 4.3, August 2019 Chronic anemia, hemoglobin better than baseline post blood transfusion from last confinement Possible functional disability given recurrent admissions past tobacco abuse. ICU Baseline ABG Solu-Medrol 1 dose now for aspiration pneumonia causing hypoxemia and hemoptysis Unasyn for aspiration pneumonia Aspiration precautions Pulmonary consult for vent management and chest tube management for right pneumothorax Appropriate to hold home aspirin for now given hemoptysis, trend H&H, transfuse PRBC if hemoglobin less than 8 and or for symptomatic anemia (hx NSTEMI as per records) Hold neuropsychotropic meds for now, ensure dosing appropriate for current kidney function once patient more awake. DC oxybutynin and betahistine as per Psychiatry recommendations pending discussion with patient/family. (Recommend discharging provider to carefully go over home meds on discharge with patient caregiver /.) Nephrology consult RE dialysis management ISS BG goal [id number] PT OT eval once patient extubated DVT prophylaxis. SCDS hemoptysis Full code as per Patient's requesting updates from providers Mr. Wesley Hassan, contact #[phone]. Text document was generated using [email or web address] voice recognition software. It may contain grammatical or spelling errors. Kindly contact undersigned for clarification of any documentation item in question. History of Present Illness Chief Complaint: Decreased mental status postdialysis as per records Primary Care Provider: Bella Rubio MD History obtained from patient, family, and records. Limited history from patient secondary to intubated state. Medical history significant for chronic diastolic heart failure (EF 50 to 55%, TTE 2019), chronic LBBB, hypertension, hyperlipidemia, COPD, RENÉ on CPAP, his tory PE status post anticoagulation, rheumatoid arthritis, Parkinson's disease, Mnire's disease, anxiety/mood disorder, DM 2 diet-controlled, rheumatoid arthritis as per records, ESRD on HD, hx NAFLD, chronic anemia (baseline hemoglobin 7), history diverticulosis, history traumatic subdural hematoma as per records, past tobacco abuse. Recent confinement last month for metabolic encephalopathy attributed to worsening kidney function and home medications. Decreased Lyrica dosage on discharge. On follow-up at PCPs office 2 weeks ago, patient noted to have worsening depression symptoms and sleeping frequently as per documentation. Patient family not aware of decreased Lyrica dosage on discharge and was still giving patient dosage prior to last confinement. Patient family educated about new Lyrica dosage of 100 mg twice daily. PCP consulted [facility] psychiatry Ask a Doc regarding antidepressant medication adjustment. Psychiatrist recommended psychotherapy, possibly adding sertraline (no need for renal dose adjustment as per note) to patient's Effexor XR. Psychiatry also recommended discontinuing oxybutynin (given anticholinergic side effects) and meclizine. Unclear if recommendations communicated to patient/family. Last week patient underwent IR guided tunneled HD catheter placement at [facility] in preparation for hemodialysis to commence this week. Patient underwent first outpatient dialysis session at [facility] this afternoon. Altered mental status noted at end of dialysis session as per . Patient noted to be somnolent and hypoxemic upon arrival at the ER. O2 sats 80s on room air. Subsequent emergent endotracheal intubation done at the ER. Difficult intubation as per ER documentation. O2 sats noted to be low post intubation. A subsequent chest x-ray later showed large right pneumothorax with right lung collapse. R Chest tube subsequently placed. IV Zosyn given at the ER for aspiration pneumonia. Bloody ET secretions suctioned at the ER. 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, lives with Allergies Allergy/AdvReac Type Severity Reaction Status Date / Time No Known Allergies Allergy Verified 11/10/19 21:36 Home Medications Home Medications Medication Instructions Recorded Confirmed Type pravastatin [Pravachol] 40 mg PO HS 11/18/17 11/10/19 History amlodipine 5 mg PO QAM 08/21/18 11/10/19 History carbidopa-levodopa 1 tab PO TIDM 08/21/18 11/10/19 History cyanocobalamin (vitamin B-12) 1,000 mcg PO QAM 08/21/18 11/10/19 History [Vitamin B-12] levothyroxine 125 mcg PO QAM 08/21/18 11/10/19 History melatonin 10 mg PO HS 08/21/18 11/10/19 History hydralazine 25 mg PO TID 11/18/18 11/10/19 History terazosin 5 mg PO HS 04/20/19 11/10/19 History bupropion HCl 75 mg PO BID 08/15/19 11/10/19 History potassium chloride 20 meq PO QAM 08/15/19 11/10/19 History pramipexole 0.25 mg PO HS 08/15/19 11/10/19 History venlafaxine 75 mg PO QAM 08/15/19 11/10/19 History Vitron-C 1 tab PO DAILY 09/21/19 11/10/19 History aspirin 81 mg PO DAILY 09/21/19 11/10/19 History cholecalciferol (vitamin D3) 125 mcg PO DAILY 09/21/19 11/10/19 History [Vitamin D3] isosorbide mononitrate 30 mg PO DAILY 09/21/19 11/10/19 History meclizine 25 mg PO TID PRN 09/21/19 11/10/19 History oxybutynin chloride 5 mg PO DAILY 09/21/19 11/10/19 History metolazone 2.5 mg PO 3XWK 10/14/19 11/10/19 History calcium acetate(phosphat bind) 667 mg PO TIDM 30 Days #90 cap 10/20/19 11/10/19 Rx torsemide 100 mg PO QAM 30 Days #30 tab 10/20/19 11/10/19 Rx Betahistine 16 mg PO BID 11/10/19 11/10/19 History pregabalin 100 mg PO BID 11/10/19 11/10/19 History Past Med/Surg History Medical History Chronic diastolic heart failure CKD (chronic kidney disease), stage IV Depression Diabetes mellitus, type II Dyslipidemia Generalized anxiety disorder HTN (hypertension) Hypothyroidism RACHEL (iron deficiency anemia) Meniere's disease RENÉ on CPAP Parkinson disease Restless leg syndrome Rheumatoid arthritis Subdural hematoma Surgical History H/O sinus surgery History of carpal tunnel surgery History of orthopedic surgery " bilat heel surgery" History of tubal ligation Hx of total knee arthroplasty "Left, Dr. Del Real" Family History Other AAA (abdominal aortic aneurysm) Diabetes Family history non-contributory Hypertension Myotonic dystrophy Social History Smoking Status: Never smoker Cigarettes Per Day: 0.25ppd; Second Hand Exposure: No; Hx Alcohol Use: No Hx Substance Use: No Preferred Language: Andorran Communication Ability: Effective Signal And Communications Maintainer Required: No Beliefs That Will Affect Care: None marital status: Current Living Situation: Spouse Current Living Situation Comment: lives in home with and has caregivers Other Information That Helps Us Care for You: No Feels Safe at Home: Yes Safety Concerns: Feels Safe At This Time Review of Systems Review of Systems: Could not be reliably obtained Physical Exam Physical Exam: GENERAL: Sedated, intubated, morbidly obese SKIN: Pallor, warm HEENT: Pale palpebral conjunctivae, no ptosis, dry buccal mucosa NECK : Supple, short neck, no tenderness CHEST : Chest tube right chest wall, decreased breath sounds, R HEART : RRR, no obvious murmurs ABDOMEN: Some distention, nontender EXTREMITIES : Minimal LE edema, no other conspicuous deformities noted NEUROLOGIC : Sedated , no facial asymmetry, gait and stance not assessed Results & Data Results & Data ([facility]) Vital Signs (Past 12 Hours) Vital Signs Temp Pulse Resp BP Pulse Ox 11/10/19 20:15 79 95 11/10/19 20:01 78 146/65 H 96 11/10/19 20:00 79 96 11/10/19 19:55 77 19 96 11/10/19 19:53 84 142/83 H 97 11/10/19 19:52 81 97 11/10/19 19:30 78 99 11/10/19 19:27 78 100 11/10/19 19:26 81 118/81 99 11/10/19 19:21 78 128/75 99 11/10/19 19:16 77 99 11/10/19 19:15 80 122/70 99 11/10/19 19:07 79 134/64 99 11/10/19 19:02 81 130/76 98 11/10/19 19:00 80 95 11/10/19 18:57 86 115/88 92 11/10/19 18:51 78 136/80 97 11/10/19 18:46 78 137/63 97 11/10/19 18:45 83 96 11/10/19 18:41 83 129/65 97 11/10/19 18:36 83 135/69 91 11/10/19 18:31 81 137/71 90 11/10/19 18:30 84 90 11/10/19 18:26 82 134/62 89 L 11/10/19 18:22 83 90 11/10/19 18:21 82 139/61 90 11/10/19 18:16 83 137/63 88 L 11/10/19 18:15 84 88 L 11/10/19 18:11 87 117/70 88 L 11/10/19 18:06 82 139/45 L 87 L 11/10/19 18:01 87 119/50 L 85 L 11/10/19 18:00 82 87 L 11/10/19 17:58 84 121/55 L 87 L 11/10/19 17:56 86 98/63 L 86 L 11/10/19 17:51 80 126/55 L 84 L 11/10/19 17:46 81 137/65 85 L 11/10/19 17:45 89 84 L 11/10/19 17:42 90 133/71 88 L 11/10/19 17:30 90 83 L 11/10/19 17:23 99 H 20 159/88 H 83 L 11/10/19 17:20 97 H 16 169/80 H 79 L 11/10/19 17:16 97 H 16 156/79 H 86 L 11/10/19 17:15 98 H 17 85 L 11/10/19 17:10 99 H 16 167/87 H 84 L 11/10/19 17:08 99 H 16 84 L 11/10/19 17:05 104 H 13 182/94 H 77 L 11/10/19 17:01 109 H 23 63 L 11/10/19 17:00 108 H 19 158/91 H 78 L 11/10/19 16:55 99 H 25 H 145/71 H 77 L 11/10/19 16:54 87 17 155/63 H 94 11/10/19 16:50 90 18 88 L 11/10/19 16:48 89 30 H 154/111 H 83 L 11/10/19 16:41 86 22 84 L 11/10/19 16:32 37.1 C 87 24 173/70 H 98 11/10/19 16:31 89 17 170/84 H 83 L Laboratory Results Laboratory Results WBC 11.03 K/uL (4.8-10.8) H 11/10/19 16:29 RBC 3.48 M/uL (4.2-5.4) L 11/10/19 16:29 Hgb 10.0 g/dL (12.0-16.0) L 11/10/19 16:29 POC Hgb 10.9 g/dl (12.0-16.0) L 11/10/19 16:34 Hct 31.1 % (37-47) L 11/10/19 16:29 POC Hct 32 % (37-47) L 11/10/19 16:34 MCV 89.4 fL (80-100) 11/10/19 16:29 MCH 28.7 pg (25-34) 11/10/19 16:29 MCHC 32.2 g/dL (32-36) 11/10/19 16:29 RDW Std Deviation 51.5 fL (36.4-46.3) H 11/10/19 16:29 RDW Coeff of Bhavin 16.0 % (11.5-14.5) H 11/10/19 16:29 Plt Count 168 K/uL (130-400) 11/10/19 16:29 MPV 12.1 fL (7.4-10.4) H 11/10/19 16:29 Immature Gran % (Auto) 0.6 % 11/10/19 16:29 Neut % (Auto) 81.1 % 11/10/19 16:29 Lymph % (Auto) 7.3 % 11/10/19 16: Hickman % (Auto) 8.2 % 11/10/19 16:29 Eos % (Auto) 2.7 % 11/10/19 16: Baso % (Auto) 0.1 % 11/10/19: Neut # (Auto) 8.95 K/uL (1.4-6.5) H 11/10/19 16: Lymph # (Auto) 0.80 K/uL (1.2-3.4) L 11/10/19: Hickman # (Auto) 0.90 K/uL (0.11-0.59) H 11/10/19 16: Eos # (Auto) 0.30 K/uL (0-0.5) 11/10/19: Baso # (Auto) 0.01 K/uL (0-0.2) 11/10/19: Immature Gran # (Auto) 0.07 K/uL (0.00-0.02) H 11/10/19: PT 10.6 Seconds (9.0-12.0) 11/10/19 INR 1.0 (0.9-1.1) 11/10/19: ABG pH 7.39 (7.35-7.45) 11/10/19 20: ABG pCO2 46 mmHg (35-46) 11/10/19 ABG pO2 75 mmHg (80-95) L 11/10/19: ABG HCO3 27 mmol/L (19-24) H 11/10/19: ABG O2 Saturation 94.0 % (90-95) 11/10/19: ABG Base Excess 2.1 mEq/L (-9-1.8) H 11/10/19 20: Richard Test POS (Pos) 11/10/19 20: Barometric Pressure 730.7 mm/Hg 11/10/19: Oxygen Given 70% FiO2 11/10/19: POC Sodium 135 mmol/L (135-144) 11/10/19 16: Sodium 135 mmol/L (136-145) L 11/10/19: POC Potassium 3.7 mmol/L (3.3-5.0) 11/10/19 16: Potassium 3.3 mmol/L (3.5-5.1) L 11/10/19 16:29 POC Chloride 96 mmol/L (101-112) L 11/10/19 16:34 Chloride 98 mmol/L (98-107) 11/10/19 16:29 Carbon Dioxide 27 mmol/L (21-32) 11/10/19 16:29 POC Total CO2 31 mmol/L (24-31) 11/10/19 16:34 Anion Gap 9.0 (3-11) 11/10/19 16:29 POC Anion Gap 13.0 mmol/L (16-25) L 11/10/19 16:34 POC BUN 40 mg/dl (7-18) H 11/10/19 16:34 BUN 33 mg/dl (7-18) H 11/10/19 16:29 Creatinine 2.66 mg/dl (0.6-1.2) H 11/10/19 16:29 POC Creatinine 2.7 mg/dl (0.6-1.3) H 11/10/19 16:34 Est Cr Clr Drug Dosing Not Reportable 11/10/19 16:29 Est GFR ( Amer) 19.8 11/10/19 16:29 Est GFR (Non-Af Amer) 17.1 11/10/19 16:29 BUN/Creatinine Ratio 12.4 (10-20) 11/10/19 16:29 Glucose 94 mg/dl (70-99) 11/10/19 16:29 POC Glucose (other) 96 mg/dl (70-99) 11/10/19 16:34 Lactate 0.7 mmol/L (0.4-2.0) 11/10/19 17:31 Calcium 8.2 mg/dl (8.5-10.1) L 11/10/19 16:29 POC Ioniz Calcium Oh 0.97 mmol/l (1.12-1.32) L 11/10/19 16:34 Magnesium 2.0 mg/dl (1.8-2.4) 11/10/19 16:29 Total Bilirubin 0.6 mg/dl (0.2-1) 11/10/19 16:29 AST 203 U/L (15-37) H 11/10/19 16:29 ALT 103 U/L (12-78) H 11/10/19 16:29 Alkaline Phosphatase 675 U/L (45-117) H 11/10/19 16:29 Troponin I < 0.015 ng/ml (0-0.045) 11/10/19 16: NT-Pro-B Natriuret Pep 77295 pg/ml (0-900) H 11/10/19 16:29 Total Protein 7.7 gm/dl (6.4-8.2) 11/10/19 16: Albumin 3.0 gm/dl (3.4-5.0) L 11/10/19 16: Globulin 4.7 gm/dl (2.5-4.0) H 11/10/19 16: Albumin/Globulin Ratio 0.6 (0.9-2) L 11/10/19 16: Procalcitonin Cancelled 11/10/19 16:29 TSH 2.000 uIu/ml (0.300-4.500) 11/10/19 16:29 Urine Color [place] 11/10/19 19: Urine Appearance Turbid (Clear) A 11/10/19 19: Urine pH 6.5 (4.5-7.5) 11/10/19 19: Ur Specific [place] 1.011 (1.000-1.030) 11/10/19 19: Urine Protein 3+ (Negative) H 11/10/19 19: Urine Glucose (UA) Negative (Negative) 11/10/19 19: Urine Ketones Negative (Negative) 11/10/19 19: Urine Blood 3+ (Negative) H 11/10/19 19: Urine Nitrite Negative (Negative) 11/10/19 19: Urine Bilirubin Negative (Negative) 11/10/19 19: Urine Urobilinogen Negative (Negative) 11/10/19 19: Ur Leukocyte Esterase 3+ (Negative) H 11/10/19 19:27 Urine WBC (Auto) >30 /hpf (0-5) H 11/10/19 19: Urine RBC (Auto) >30 /hpf (0-4) H 11/10/19 19: U Hyaline Cast (Auto) 1-5 /lpf (0-5) 11/10/19 19: U Epithel Cells (Auto) >30 /lpf (0-5) H 11/10/19 19:27 Urine Bacteria (Auto) Negative (Negative) 11/10/19 19:27 Urine Yeast Not Reportable 11/10/19 19:27 Diagnostic Findings PCXR (521PM) 1. Tip of endotracheal tube at the rusty. The tube could be withdrawn 2.5 cm. 2. Progression of interstitial thickening and bilateral opacities, greater within the left lung. The findings favor pulmonary edema although pneumonia could appear similar. 3. Stable cardiomegaly. PCXR (529 PM) 1. Interval development of a moderate right pneumothorax. Possible interval mild left mediastinal shift. Findings discussed with Dr. Finch at time of dictation. 2. Satisfactory positioning of the endotracheal tube. 3. Interstitial thickening and airspace opacities, greater within the left lung. The findings favor pulmonary edema although pneumonia could appear similar. CT head: 1. No acute intracranial findings. 2. Left periparotid infiltration which is new since CT of October 14, 2019. This favors parotitis although cellulitis could appear similar. CT chest: 1. Satisfactory positioning of the endotracheal tube. 2. Trace residual right pneumothorax following chest tube insertion. Chest tube may extend within a fissure. Alternatively, this may be partly parenchymal location. Mild adjacent airspace opacity. 3. Extensive bilateral lower lobe consolidation, greater on the right. The findings may reflect pneumonia or aspiration pneumonitis. 4. Additional interstitial thickening and bilateral airspace opacities which may reflect pulmonary edema or an infectious process. 5. Stable cardiomegaly. CT abdomen pelvis: 1. No acute process within the abdomen or pelvis on unenhanced exam. 2. Dense bilateral lower lobe consolidation, trace right pneumothorax and right-sided chest tube, better depicted on the chest CT. Please see that report for further description. EKG as per my interpretation: Rate 85, normal axis, LBBB, PVCs (1) Respiratory failure Chronicity: acute on chronic Respiratory failure complication: hypoxia and hypercapnia Qualified Code(s): J96.21 - Acute and chronic respiratory failure with hypoxia; J96.22 - Acute and chronic respiratory failure with hypercapnia
[2019-11-10] MEDS ORDERED: methylPREDNISolone 40 MG in SYRINGE 0 ML IV STA (21:15)
[2019-11-10] MEDS ORDERED: PROMETHAZINE HCL 12.5 MG in SODIUM CHLORIDE 0.9% 50 ML IV PRN (22:16)
[2019-11-10] MEDS ORDERED: ICU PROTOCOL FOR HYPERGLYCEMIA PRN (22:16)
[2019-11-10] MEDS ORDERED: fentaNYL citrate 100 MCG/2 ML VIAL IV PRN (22:16)
--- NOTE | 2019-11-10 22:19 | Critical Care Consultation ---
Date of Consultation November 10, 2019 Assessment & Plan (1) Admitted to intensive care unit: Reason Critically Ill: 74-year-old male with acute on chronic hypoxic respiratory failure required emergent endotracheal intubation. Patient developed subsequent RIGHT-sided pneumothorax requiring chest tube placement. Patient admitted to the ICU for respiratory/ventilator management as well as chest tube management. NEURO - * CAM ICU: Unable to assess secondary to level of sedation. * Altered mental status: * Patient developed altered mental status and decreased level of consciousness at the end of her first hemodialysis procedure. * ??Dialysis Disequilibrium Syndrome (DDS). * CT Head unremarkable. * No other focal neurological findings. * Patient showing improvement at this time. * Patient likely at higher risk as she is O2 dependent at baseline and her stuporous state could have certainly precipitated worsening hypercarbia and clinical deterioration. * Improving mental status at this point. * Monitor closely for any clinical changes. * Wean sedation as tolerated. * Treat pain w/ PRN Fentanyl. CARDIAC/VASCULAR - * Prolonged QTc * Avoid any further QTc prolonging medications. * EKG: SR w/ PVCs, LBBB @87 bpm. Unchanged otherwise. QTc 540 ms. * Monitor on telemetry. RESPIRATORY - * Acute on chronic hypoxic respiratory failure: * Requiring emergent endotracheal intubation. * Likely aspiration event which precipitated need for intubation. * Difficult airway and subsequent need for ET Tube exchange s/s ruptured cuff. * Wean ventilator settings as tolerated. * Currently covered w/ Zosyn for aspiration. * Pneumothorax - RIGHT - * Chest tube to continuous suction while intubated. * 20 cm H2O for now. * Improvement in air leak. * Appropriately positioned per CT chest. GI/NUTRITION - * NPO * OG In place RENAL/LYTES - * CKD on HD M/W/F * Appreciate Nephrology consult. - * Kirby in place - Strict I&Os. ENDO - * DMII * BSGs per unit protocol. ISS --> gtt per unit policy. HEME - * Stable H&H * Monitor closely in the renal failure patient w/ h/o anemia and need for transfusions. ID - * Aspiration event: * Received initial dose of Zosyn in the ED. * Agree w/ Unasyn w/ transition to PO Augmentin w/ clinical improvement. LINES/IV ACCESS - * PIVs x2 * LEFT sided HD port * Kirby * ET Tube * OG * RIGHT Sided Chest Tube DVT PROPHYLAXIS - * Will hold on prophylaxis s/p chest tube placement and recent h/o anemia. Will reassess as clinical picture improves. * SCDs I have personally spent 45 minutes of critical care time in the direct management of this patient. This is a life/limb threatening event. This includes time spent evaluating patient, direct bedside care, chart review, placing orders, interpretation of diagnostic studies, discussion with consultants, patient, and family members, as well as other required patient management activities. This time is exclusive of all separately billable procedures, and teaching time and separate from and in addition to any other critical care service time. Thank you for allowing us to participate in the care of this patient. Please refer to my attending physician's documentation for any further recommendations. (2) AMS (altered mental status): (3) Acute hypoxemic respiratory failure: (4) Pneumothorax on right: (5) Respiratory failure: (6) Acute UTI: (7) Aspiration pneumonia: (8) Encephalopathy: (9) CKD (chronic kidney disease), stage IV: (10) Hypertension: (11) Parkinson disease: Supervising Physician Co-Signing Physician Notes see my critical care note from 11/10 for full details. History of Present Illness Attending Physician: Marito Gu MD History of Present Illness Patient is a 74-year-old female with a significant past medical history of hypertension, hyperlipidemia, diabetes, end-stage renal disease recently started hemodialysis, and parkinsonism. She recently had a hemodialysis port placed at [facility] to begin scheduled outpatient HD. She had been doing well up until the completion of her first hemodialysis treatment this afternoon at approximately 315. She became altered and more obtunded after the procedure. She was brought to the emergency department where she was found to be hypoxic and altered. She would answer simple questions, and then fall back to sleep. The patient did vomit and her O2 saturations plummeted requiring emergent endotracheal intubation. She was a difficult airway. Patient was noted to develop RIGHT-sided pneumothorax status post intubation. Emergency department staff did attempt to place pigtail catheter, however they were unsuccessful secondary to the patient's body habitus. 20 [place] chest tube was placed. CT of the head, chest, and abdomen/pelvis demonstrate no acute findings other than possible infiltrative changes to the bibasilar areas. Patient was treated with 1 dose of IV Zosyn. She is currently sedated on propofol. On presentation to the ICU, the patient does awaken with stimuli and to voice. She is sedated on propofol. She has fentanyl as needed for pain. Chest tube is in place through the RIGHT sided axillary area. It is to suction at this time. She is unable to contribute to history of present illness secondary to level of sedation. Allergies Allergy/AdvReac Type Severity Reaction Status Date / Time No Known Allergies Allergy Verified 11/10/19 21:36 Home Medications Home Medications Medication Instructions Recorded Confirmed Type pravastatin [Pravachol] 40 mg PO HS 11/18/17 11/10/19 History amlodipine 5 mg PO QAM 08/21/18 11/10/19 History carbidopa-levodopa 1 tab PO TIDM 08/21/18 11/10/19 History cyanocobalamin (vitamin B-12) 1,000 mcg PO QAM 08/21/18 11/10/19 History [Vitamin B-12] levothyroxine 125 mcg PO QAM 08/21/18 11/10/19 History melatonin 10 mg PO HS 08/21/18 11/10/19 History hydralazine 25 mg PO TID 11/18/18 11/10/19 History terazosin 5 mg PO HS 04/20/19 11/10/19 History bupropion HCl 75 mg PO BID 08/15/19 11/10/19 History potassium chloride 20 meq PO QAM 08/15/19 11/10/19 History pramipexole 0.25 mg PO HS 08/15/19 11/10/19 History venlafaxine 75 mg PO QAM 08/15/19 11/10/19 History Vitron-C 1 tab PO DAILY 09/21/19 11/10/19 History aspirin 81 mg PO DAILY 09/21/19 11/10/19 History cholecalciferol (vitamin D3) 125 mcg PO DAILY 09/21/19 11/10/19 History [Vitamin D3] isosorbide mononitrate 30 mg PO DAILY 09/21/19 11/10/19 History meclizine 25 mg PO TID PRN 09/21/19 11/10/19 History oxybutynin chloride 5 mg PO DAILY 09/21/19 11/10/19 History metolazone 2.5 mg PO 3XWK 10/14/19 11/10/19 History calcium acetate(phosphat bind) 667 mg PO TIDM 30 Days #90 cap 10/20/19 11/10/19 Rx torsemide 100 mg PO QAM 30 Days #30 tab 10/20/19 11/10/19 Rx Betahistine 16 mg PO BID 11/10/19 11/10/19 History pregabalin 100 mg PO BID 11/10/19 11/10/19 History Patient History Medical History Chronic diastolic heart failure CKD (chronic kidney disease), stage IV Depression Diabetes mellitus, type II Dyslipidemia Generalized anxiety disorder HTN (hypertension) Hypothyroidism RACHEL (iron deficiency anemia) Meniere's disease RENÉ on CPAP Parkinson disease Restless leg syndrome Rheumatoid arthritis Subdural hematoma Surgical History H/O sinus surgery History of carpal tunnel surgery History of orthopedic surgery " bilat heel surgery" History of tubal ligation Hx of total knee arthroplasty "Left, Dr. Del Real" Family History Other AAA (abdominal aortic aneurysm) Diabetes Family history non-contributory Hypertension Myotonic dystrophy Social History Smoking Status: Never smoker Cigarettes Per Day: 0.25ppd; Second Hand Exposure: No; Hx Alcohol Use: No Hx Substance Use: No Preferred Language: Andorran Communication Ability: Effective Exit Booth Agent Required: No Beliefs That Will Affect Care: None marital status: Current Living Situation: Spouse Current Living Situation Comment: lives in home with and has caregivers Other Information That Helps Us Care for You: No Feels Safe at Home: Yes Safety Concerns: Feels Safe At This Time Review of Systems Review of Systems: Unobtainable due to cognitive status, Unobtainable due to endotracheal tube and Unobtainable due to reduced consciousness Physical Exam Physical Exam: VITAL SIGNS - Vital signs and nursing notes were reviewed. GENERAL - 74-year-old female appearing her stated age who is in no acute distress. Intubated and sedated. HEAD - NC/AT. EYES - PERRL with EOMI bilaterally. Sclera anicteric. EARS - No deformities of external structures noted on gross examination bilaterally. NOSE - Midline and without cyanosis. No epistaxis or purulent drainage noted. MOUTH/OROPHARYNX - ET Tube in place. Without perioral cyanosis. Buccal mucosa pink and moist and without leukoplakia. NECK - Neck with FROM. Supple to palpation. LUNGS - Chest tube in place in the RIGHT axillary line. Diminished breath sounds in the RIGHT sided lung anand. CTA in the LEFT sided lung anand. CARDIAC - RRR with S1/S2. No murmur, rubs, or gallops appreciated. ABDOMEN - Abdominal contour obese without pulsations or visible masses. BS nor moactive all four quadrants. No tenderness, palpable masses, hepatosplenomegaly, or ascites noted. EXTREMITIES - No clubbing or peripheral cyanosis. Mild pretibial edema present. +3/5 radial and dorsalis pedis pulses palpated throughout. NEUROLOGIC - Cranial nerves II through XII grossly intact. No focal neurological deficits. Sedated, but opens eyes to stimuli and when spoken to. Extremely hard of hearing. Helps turn with adjustments in bed. Results & Data Results & Data ([facility]) Vital Signs (Past 12 Hours) Vital Signs Temp Pulse Pulse Resp BP BP Pulse Ox 11/10/19 21:16 67 102/44 L 95 11/10/19 21:15 68 95 11/10/19 21:00 68 91/49 L 96 11/10/19 20:46 66 92/47 L 95 11/10/19 20:45 72 95 11/10/19 20:35 36.8 C 70 31 H 119/47 L 96 11/10/19 20:31 69 119/47 L 96 11/10/19 20:30 75 97 11/10/19 20:22 76 125/73 95 11/10/19 20:15 79 95 11/10/19 20:01 78 146/65 H 96 11/10/19 20:00 79 96 11/10/19 19:55 77 19 96 11/10/19 19:53 84 142/83 H 97 11/10/19 19:52 81 97 11/10/19 19:30 78 99 11/10/19 19:27 78 100 11/10/19 19:26 81 118/81 99 11/10/19 19:21 78 128/75 99 11/10/19 19:16 77 99 11/10/19 19:15 80 122/70 99 11/10/19 19:07 79 134/64 99 11/10/19 19:02 81 130/76 98 11/10/19 19:00 80 95 11/10/19 18:57 86 115/88 92 11/10/19 18:51 78 136/80 97 11/10/19 18:46 78 137/63 97 11/10/19 18:45 83 96 11/10/19 18:41 83 129/65 97 11/10/19 18:36 83 135/69 91 11/10/19 18:31 81 137/71 90 11/10/19 18:30 84 90 11/10/19 18:26 82 134/62 89 L 11/10/19 18:22 83 90 11/10/19 18:21 82 139/61 90 11/10/19 18:16 83 137/63 88 L 11/10/19 18:15 84 88 L 11/10/19 18:11 87 117/70 88 L 11/10/19 18:06 82 139/45 L 87 L 11/10/19 18:01 87 119/50 L 85 L 11/10/19 18:00 82 87 L 11/10/19 17:58 84 121/55 L 87 L 11/10/19 17:56 86 98/63 L 86 L 11/10/19 17:51 80 126/55 L 84 L 11/10/19 17:46 81 137/65 85 L 11/10/19 17:45 89 84 L 11/10/19 17:42 90 133/71 88 L 11/10/19 17:30 90 83 L 11/10/19 17:23 99 H 20 159/88 H 83 L 11/10/19 17:20 97 H 16 169/80 H 79 L 11/10/19 17:16 97 H 16 156/79 H 86 L 11/10/19 17:15 98 H 17 85 L 11/10/19 17:10 99 H 16 167/87 H 84 L 11/10/19 17:08 99 H 16 84 L 11/10/19 17:05 104 H 13 182/94 H 77 L 11/10/19 17:01 109 H 23 63 L 11/10/19 17:00 108 H 19 158/91 H 78 L 11/10/19 16:55 99 H 25 H 145/71 H 77 L 11/10/19 16:54 87 17 155/63 H 94 11/10/19 16:50 90 18 88 L 11/10/19 16:48 89 30 H 154/111 H 83 L 11/10/19 16:41 86 22 84 L 11/10/19 16:32 37.1 C 87 24 173/70 H 98 11/10/19 16:31 89 17 170/84 H 83 L Coding Level of Care Code Critical Care 1st 30-74 mins Diagnoses Admitted to intensive care unit Z78.9 AMS (altered mental status) R40.0 Altered mental status type: somnolence Acute hypoxemic respiratory failure J96.01 Pneumothorax on right J93.9 Respiratory failure J96.21; J96.22 Chronicity: acute on chronic Respiratory failure complication: hypoxia and hypercapnia Acute UTI N39.0 Aspiration pneumonia J69.0 Aspiration pneumonia type: due to vomit Laterality: bilateral Lung location: lower lobe of lung Encephalopathy G93.40 CKD (chronic kidney disease), stage IV N18.4 Hypertension I10 Hypertension type: essential hypertension Parkinson disease G20 Time Spent (min) 45 (1) Aspiration pneumonia Aspiration pneumonia type: due to vomit Laterality: bilateral Lung location: lower lobe of lung Qualified Code(s): J69.0 - Pneumonitis due to inhalation of food and vomit (2) Respiratory failure Chronicity: acute on chronic Respiratory failure complication: hypoxia and hypercapnia Qualified Code(s): J96.21 - Acute and chronic respiratory failure with hypoxia; J96.22 - Acute and chronic respiratory failure with hypercapnia (3) AMS (altered mental status) Altered mental status type: somnolence Qualified Code(s): R40.0 - Somnolence (4) Hypertension Hypertension type: essential hypertension Qualified Code(s): I10 - Essential (primary) hypertension
[2019-11-10] MEDS ORDERED: AMPICILLIN/SULBACTAM CONSULT ACTIVE PRN (22:25)
[2019-11-10] MEDS ORDERED: PRAVASTATIN SOD 40 MG TAB PO SCH (22:45)
[2019-11-10 22:50] LABS: Hemoglobin 10.3 g/dL (12.0-16.0)
[2019-11-10] MEDS: AMPICILLIN/SULBACTAM SOD 3,000 MG in 0.9 % SODIUM CHLORIDE 100 ML IV SCH (23:25)
[2019-11-11] MEDS: FAMOTIDINE 20 MG in SYRINGE 3 ML IV SCH ×2 (00:06→09:10)
[2019-11-11] MEDS ORDERED: GLUCAGON FOR INJ 1 MG VIAL SQ PRN (00:23)
[2019-11-11] MEDS ORDERED: DEXTROSE 50% 50 ML SYRINGE IV PRN (00:23)
[2019-11-11] MEDS ORDERED: GLUCOSE 40% GEL 15 GM TUBE PO PRN (00:23)
[2019-11-11] MEDS ORDERED: GLUCOSE 10 TABS/TUBE PO PRN (00:23)
[2019-11-11] MEDS ORDERED: CARBOHYDRATES FOR HYPOGLYCEMIA PO PRN (00:23)
[2019-11-11] MEDS ORDERED: ALBUTEROL HFA 8 GM INHALER INH SCH (01:00)
[2019-11-11] MEDS: IPRATROPIUM BROMIDE HFA INHALER INH SCH ×2 (01:48→07:09)
[2019-11-11] MEDS: ALBUTEROL 0.083% NEBU SOLN 3 ML VIAL NEB PRN ×3 (01:48→12:42)
[2019-11-11] MEDS: INSULIN ASPART 100 UNITS/ML 3 ML PEN SC SCH ×4 (03:54→17:58)
[2019-11-11 04:44] LABS: Hematocrit (blood only) 28.4 % (37-47); Hemoglobin 9.1 g/dL (12.0-16.0); Immature Granulocytes # (auto) 0.06 K/uL (0.00-0.02); Immature Granulocytes % (auto) 0.4 %; Lymphocytes # (auto) 0.18 K/uL (1.2-3.4); Lymphocytes % (auto) 1.3 %; Mean Corpuscular Hemoglobin 27.9 pg (25-34); Mean Corpuscular Volume 87.1 fL (80-100); Mean Platelet Volume 11.9 fL (7.4-10.4); Monocytes # (auto) 0.37 K/uL (0.11-0.59); Monocytes % (auto) 2.6 %; Neutrophils # (auto) 13.51 K/uL (1.4-6.5); Neutrophils % (auto) 95.7 %; Platelet Count 158 K/uL (130-400); RDW Coefficient of Variation 15.6 % (11.5-14.5); RDW Standard Deviation 50.2 fL (36.4-46.3); Red Blood Count 3.26 M/uL (4.2-5.4); White Blood Count 14.12 K/uL (4.8-10.8)
[2019-11-11 05:44] LABS: iSTAT Allen Test Pass; iSTAT Art Bld Gas pCO2 Correct 40 mmHg (35-46); iSTAT Arterial Blood Gas HCO3 29 meg/L (19-24); iSTAT Arterial Blood Gas pCO2 38 mmHg (35-46); iSTAT Arterial Blood Gas pH 7.49 (7.35-7.45); iSTAT Arterial Blood Gas pO2 78 mmHg (80-95); iSTAT Arterial Blood Gas pO2 C 82; iSTAT Carbon Dioxide 30 mmol/L (24-31); iSTAT FiO2 55 %; iSTAT Hematocrit 28 % (37-47); iSTAT Hemoglobin 9.5 g/dl (12.0-16.0); iSTAT Potassium 4.1 mmol/L (3.3-5.0); iSTAT Site L Radial; iSTAT Sodium 136 mmol/L (135-144)
[2019-11-11 05:49] LABS: Albumin Level 2.6 gm/dl (3.4-5.0); BUN Creatinine Ratio 11.9 (10-20); Bilirubin Direct 0.2 mg/dl (0-0.2); Bilirubin,Total 0.5 mg/dl (0.2-1); Calcium 7.5 mg/dl (8.5-10.1); Creatinine Clr Calc Pharmacy 16.1 ml/min; Est GFR (African American) 14.1; Est GFR (Non-African American) 12.2; Magnesium 1.8 mg/dl (1.8-2.4); Phosphorus 5.9 mg/dl (2.5-4.9); Potassium 4.1 mmol/L (3.5-5.1); Total Protein 6.7 gm/dl (6.4-8.2)
[2019-11-11] MEDS: propofoL 1,000 MG/100 ML VIAL IV SCH ×3 (07:14→19:03)
--- NOTE | 2019-11-11 07:48 | XRay Report ---
XR chest 1V portable HISTORY: Intubation. Shortness of breath. COMPARISON: Chest 11/10/2019. FINDINGS: The heart remains enlarged. Endotracheal tube terminates 2.8 cm from the rusty. Left-sided central venous catheter terminates in the right atrium. This remains unchanged. The heart remains en larged. Right-sided chest tube has been pulled back but remains within the right upper hemithorax. No pneumothorax. Diffuse interstitial and vascular thickening persists. Right lower lobe airspace opaci ty has progressed. Suspect small bilateral pleural effusions. IMPRESSION: 1. Satisfactory support line placement. 2. No definite pneumothorax. 3. Right lower lobe airspace opacity. 4. Mild interstitial pulmonary edema and cardiomegaly. ACT 112: Negative or not required by law. Electronically signed by: Carlos Jenkins M.D. 11/11/2019 7:47 AM
--- NOTE | 2019-11-11 08:01 | Electrocardiogram Report ---
Test Reason : Blood Pressure : / mmHG Vent. Rate : 087 BPM Atrial Rate : 087 BPM P-R Int : 170 ms QRS Dur : 160 ms QT Int : 450 ms P-R-T Axes : 071 028 066 degrees QTc Int : 541 ms Sinus rhythm with frequent Premature ventricular complexes Left bundle branch block Abnormal ECG When compared with ECG of 14-OCT-2019 18:18, Premature ventricular complexes are now Present Confirmed by Cristhian Tanner ([id number]) on 11/11/2019 8:01:00 AM Referred By: REFERRED SELF Confirmed By:Cristhian Tanner
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
[2019-11-11] MEDS ORDERED: CONSULT PHARMACY SCH (09:00)
--- NOTE | 2019-11-11 09:05 | Intensivist Progress Note ---
Date of Service November 11, 2019 Assessment & Plan Admission and Anticipated Discharge Date Admission Date: November 10, 2019 Reason Critically Ill: 74-year-old female here with a PMHx significant for RENÉ on CPAP, Parkinson's, diastolic heart failure (EF 50-55% 2019), HTN, HLD, DMII, ESRD on HD, started on 11/09 through a tunneled HD catheter, presented with AMS, then vomited with concern for aspiration followed by hypoxemia which lead to intubation and who was admitted for airway and ventilator management along with management of right sided chest tube. Neuro - Sedation: Propofol currently 20 mcg/kg/min Analgesia: Fentanyl - altered mental status potentially due to dialysis disequilibrium vs. medication toxicity - CT head without acute intracranial findings - continue home parkinson's medications Cardiac - - holding blood pressure medication for 24 hours, since pt. will be getting HD today - patient did not tolerate dialysis well today - Hx. of diastolic HF - Nephrology consulted - continue to evaluate fluid status - QTc was prolonged at 519 ms Respiratory - - acute on chronic respiratory failure potentially 2/2 aspiration event - blood gas today with findings of acute respiratory alkalosis on chronic CO2 retention potentially 2/2 RENÉ - Unasyn initally started for aspiration PNA - started Vancomycin given pt. is MRSA nares +, will draw Vanc. level tomorrow with anticipated poor clearance given renal disease - right sided chest tube for pneumothorax, will keep in place until after patient is extubated, does not appear to be an air leak this morning, continue to follow with CXR - will remain intubated for at least 24 hours - started Dexamethasone 5mg Q6H X4 for concern of laryngotracheal trauma related to intubation - Hx. RENÉ on CPAP GI - - initiating trophic tube feeds - Famotidine BID given pt. will be on corticosteroids RENAL/LYTES - - ESRD, started HD on 11/09 - elevated phos at 5.9, will start phosphate binder if compatible with tube feeding - Replace lytes as needed - - No concerns at this time. ENDO - - Diabetic with recent A1C 4.1 on 08/15 - anticipate elevation in blood sugar due to initiation of corticosteroids HEME - - normocytic anemia with Stable H&H at 9.1 & 28.4, potentially 2/2 chronic disease - Will monitor for any drops in the setting of Heparin gtt ID - - on Unasyn and Vancomycin for concern of aspiration PNA - afebrile, leukocytosis up-trending currently 14.12 - blood, sputum cultures obtained, will follow up - continue to monitor - parotitis vs. cellulitis on CT head INTEGUMENTARY - - No concerns at this time. LINES/IV ACCESS - - PIVs intact. - left subclavian - right chest tube DVT PROPHYLAXIS - - Heparin gtt. Thank you for allowing us to be part of this patient's care. Please refer to Dr. Forman''s documentation for any further recommendations. Supervising Physician Co-Signing Physician Notes Patient seen and examined. Discussed with critical care RUBEN overnight and this morning. Discussed with family practice resident as well as ICU bedside nurse and on multidisciplinary rounds. Agree with assessment and plan as noted below. 74-year-old female presenting after initiation of hemodialysis with altered mental status requiring intubation mechanical ventilation. Intubation was complicated by difficult intubation and some airway trauma as well as iatrogenic pneumothorax requiring chest tube placement. Since admitted to the ICU the patient has been hemodynamically stable and vent settings have been decreasing. No persistent air leak on the chest tube. Discussed with nephrology today. Plans are to proceed with slow dialysis to allow for additional fluid removal. This will potentially optimize her fluid status. As there was concern for aspiration pneumonia, continue antibiotics pending respiratory cultures. Continue Unasyn and give 1 dose of vancomycin. Antibiotics will be adjusted based on clinical response and culture data. Tidal volume adjusted to 6 cc/kg ideal body weight. Decrease PEEP in an effort to prevent development of bronchopleural fistula. We will keep chest tube in place to suction until the patient is off positive pressure ventilation. Restarting her outpatient parkinsonian medications but will decrease medications known to cause encephalopathy including Lyrica and pramipexole. Anticipate sedation break and SBT likely tomorrow morning. As it is going to be additional 24 hours before mechanical ventilator liberation, will initiate tube feedings to provide nutritional support. Critical care time to this point, 45 minutes Subjective Kami Hassan is a 74 year old female with a complicated past medical history that includes: diastolic heart failure (EF 50-55% 2019), HTN, HLD, DMII, RENÉ on CPAP, ESRD (unclear etiology) on HD , started on 11/09 through a tunneled HD catheter. In talking with [facility] the patient has had a recent change in her home CPAP settings to with increase to 14/20 on 8/26. was in the room in the afternoon and he would not like to bring in the home CPAP since it is new. Review of Systems Review of Systems: Unobtainable due to endotracheal tube Physical Exam Eyes: - pupils round reactive to light, tracking ENMT: - ET Tube in place. Without perioral cyanosis. Buccal mucosa pink and moist Neck: normal visual inspection Respiratory: normal respiratory effort, lungs clear to auscultation - Chest tube in place in the RIGHT axillary line. Cardiovascular: - No clubbing or peripheral cyanosis. 2+ pretibial edema present - regular rate, no m/r/g Gastrointestinal (Abdomen): - soft, nTTP Skin: no rashes, warm and dry Neurologic: - No focal neurological deficits. Sedated, but opens eyes to stimuli and when spoken to Results & Data Results & Data ([facility]) Vital Signs (Past 12 Hours) Vital Signs Temp Pulse Resp BP Pulse Ox 11/11/19 08:01 20 11/11/19 07:00 73 17 93 11/11/19 06:28 67 141/56 H 96 11/11/19 05:31 70 136/79 99 11/11/19 05:28 68 17 96 11/11/19 04:29 37.8 C H 70 117/62 96 11/11/19 03:28 65 109/47 L 94 11/11/19 02:28 53 L 131/53 L 95 11/11/19 01:47 70 18 97 11/11/19 01:28 58 L 119/47 L 97 11/11/19 00:28 37.1 C 50 L 140/61 97 11/10/19 23:05 59 L 114/52 L 94 11/10/19 22:29 69 120/43 L 95 11/10/19 22:18 66 16 96 11/10/19 22:00 72 97 11/10/19 21:17 59 L 95 11/10/19 21:16 67 102/44 L 95 11/10/19 21:15 68 95 CBC Results Results Complete Blood Count Results: RBC 3.26 M/uL (4.2-5.4) L 11/11/19 WBC 14.12 K/uL (4.8-10.8) H 11/11/19 Hgb 9.1 g/dL (12.0-16.0) L 11/11/19 Hct 28.4 % (37-47) L 11/11/19 Plt Count 158 K/uL (130-400) 11/11/19 Chemistry (BMP) Results BMP Results: Sodium 136 mmol/L (136-145) 11/11/19 Potassium 4.1 mmol/L (3.5-5.1) 11/11/19 Chloride 97 mmol/L (98-107) L 11/11/19 BUN 42 mg/dl (7-18) H 11/11/19 Creatinine 3.53 mg/dl (0.6-1.2) H 11/11/19 Glucose 135 mg/dl (70-99) H 11/11/19 Resident Activity Tracking Resident Involvement: Resident Care Provided Care Provided: Adult Hospital Medicine
[2019-11-11] MEDS: LEVOTHYROXINE SODIUM 62.5 MCG in SYRINGE 0 ML IV SCH (09:10)
[2019-11-11] MEDS ORDERED: VANCOMYCIN CONSULT ACTIVE PRN (09:18)
[2019-11-11] MEDS ORDERED: SODIUM CHLORIDE 0.9% 1000ML 1,000 ML IV PRN (09:44)
[2019-11-11] MEDS: ISOSORBIDE MONO EXTENDED REL 30 MG TABCR PO SCH (09:52)
[2019-11-11] MEDS ORDERED: VANCOMYCIN HCL 1,750 MG in SODIUM CHLORIDE 0.9% 500 ML IV ONE ×2 (10:00→14:00)
[2019-11-11] MEDS: dexAMETHasone 5 MG in SYRINGE 0 ML IV SCH ×3 (10:15→22:07)
[2019-11-11 11:46] LABS: Hepatitis B Surface Ab Quant < 3.10 mIU/mL (>or=10mIU/mL Immune); Hepatitis B Surface Antibody Non-Immune
[2019-11-11 11:57] LABS: Hepatitis B Surface Antigen Neg (Neg)
--- NOTE | 2019-11-11 12:06 | Pharmacy Report ---
Pharmacy Abx Dose Short Note - Date of Service November 11, 2019 - Assessment & Plan Assessment 74 year old F receiving vancomycin/Unasyn for treatment of aspiration/pulmonary source. MRSA nasal swab positive. Will order a loading dose today after HD and check a random level with AM labs. Will redose as needed based on levels and continuation of therapy. Day # 1 of antimicrobial therapy. Plan Vancomycin * Loading dose of 1750 (~20mg/kg) mg IV today after dialysis * Random level ordered for: 11/12/19 with AM labs Amp/Sulb * 3000 mg IV q 12 Pharmacy will continue to follow and will adjust dose/frequency as necessary. Thank you.
[2019-11-11] MEDS: AMPICILLIN/SULBACTAM SOD 3,000 MG in 0.9 % SODIUM CHLORIDE 100 ML IV SCH (13:16)
[2019-11-11] MEDS: NOVASOURCE RENAL 2.0 CAL 1000ML BAG OG SCH (13:16)
--- NOTE | 2019-11-11 13:30 | Billing Data ---
Date of Service November 11, 2019 Coding Level of Care Code Critical Care mins
--- NOTE | 2019-11-11 13:51 | Electrocardiogram Report ---
Test Reason : Blood Pressure : / mmHG Vent. Rate : 066 BPM Atrial Rate : 066 BPM P-R Int : 172 ms QRS Dur : 150 ms QT Int : 496 ms P-R-T Axes : 029 013 063 degrees QTc Int : 519 ms Sinus rhythm with occasional Premature ventricular complexes Left bundle branch block Abnormal ECG When compared with ECG of 10-NOV-2019 16:40, No significant change was found Confirmed by Cristhian Tanner ([id number]) on 11/11/2019 1:50:50 PM Referred By: REFERRED SELF Confirmed By:Cristhian Tanner
--- NOTE | 2019-11-11 16:37 | Hospitalist Progress Note ---
Date of Service November 11, 2019 Assessment & Plan (1) Acute on chronic respiratory failure with hypoxemia: Multifactorial including possible aspiration pneumonia in setting of chronic COPD, currently on Unasyn and intubated. Additionally intubation was complicated by a pneumothorax on the right requiring a chest tube which will be continued until she is extubated. Cont current ICU level care. (2) Chronic diastolic heart failure: Chronic diastolic dysfunction with pulmonary congestion 2/2 ESRD. Torsemide held and fluid management with HD. (3) Dialysis disequilibrium syndrome: Recently started dialysis with possible aspiration pneumonia as a result of nausea and vomiting after first HD session. Nephro consulted to continue HD while hospitalized. (4) ESRD (end stage renal disease) on dialysis: Per Nephro (5) Admitted to intensive care unit: (6) Aspiration pneumonia: Unasyn, with plan to transition to Augmentin when tolerating PO, cont mechanical ventilation. Was initially given Solumedrol in setting of hemoptysis with stable H/H (7) Acute UTI: cont current abx. (8) Pneumothorax on right: cont chest tube, currently in place, until extubated per ICU team. (9) Sepsis with acute hypoxic respiratory failure: 2/2 pneumonia. Cont abx and ICU support with mechanical ventilation. Resuscitated shortly after admission with some intermittent fevers popping through. Cont ICU care. (10) Metabolic acidosis: Management per Neohrology (11) Morbid obesity: (12) DM type 2 (diabetes mellitus, type 2): Cont insulin per ICU protocol. Recent A1C of 4.3 reflects good control. (13) DVT prophylaxis: heparin Full Code Dispo-cont ICU care. Will assess functional status when she is extubated and out of the ICU regarding a plan for discharge. [facility] Hospitalist Admission and Anticipated Discharge Date Admission Date: November 10, 2019 Subjective Intubated and sedated Review of Systems Review of Systems: Unobtainable due to endotracheal tube and Unobtainable due to reduced consciousness Physical Exam Physical Exam: CONSTITUTIONAL: obese, vitals as above, intubated and sedated EYES: PERRL normal conjunctivae, no scleral icterus ENT: external ear and nose normal RESPIRATORY: clear to auscultation bilaterally, no crackles, rales or wheezes, normal respiratory effort CARDIOVASCULAR: regular rate and rhythm, S1 and 2 heard without murmurs, gallops or rubs, no peripheral edema CHEST: tunneled HD catheter GASTROINTESTINAL: soft, nontender, nondistended MUSCULOSKELETAL: sedated so cannot perform, head is normocephalic and at raumatic SKIN: warm and dry NEUROLOGIC: sedated PSYCHIATRIC: sedated, intubated, cannot perform Results & Data Results & Data ([facility]) Vital Signs (Past 12 Hours) Vital Signs Temp Pulse Pulse Resp BP BP Pulse Ox 11/11/19 15:26 81 20 92 11/11/19 14:56 77 144/55 H 93 11/11/19 14:42 78 144/68 H 92 11/11/19 14:26 83 143/53 H 92 11/11/19 14:11 85 151/57 H 93 11/11/19 13:56 83 143/81 H 94 11/11/19 13:41 86 151/69 H 94 11/11/19 13:11 91 H 165/67 H 95 11/11/19 12:57 63 147/61 H 93 11/11/19 12:52 36.8 C 115/54 L 11/11/19 12:50 61 20 96 11/11/19 12:45 78 115/54 L 11/11/19 12:41 60 115/54 L 96 11/11/19 12:30 60 110/60 11/11/19 12:14 55 L 112/53 L 11/11/19 12:00 49 L 136/47 L 11/11/19 11:56 53 L 136/47 L 95 11/11/19 11:45 55 L 124/74 11/11/19 11:30 54 L 123/55 L 11/11/19 11:26 67 123/55 L 95 11/11/19 11:22 59 L 119/64 95 11/11/19 11:15 60 119/64 11/11/19 11:07 61 135/61 95 11/11/19 11:01 67 145/67 H 11/11/19 10:37 77 139/66 97 11/11/19 10:30 36.8 C 60 11/11/19 10:07 75 145/66 H 96 11/11/19 10:00 69 20 97 11/11/19 09:37 72 136/53 L 96 11/11/19 09:07 68 89/51 L 94 08/27/20 08:48 75 98/48 L 94 11/11/19 08:01 20 11/11/19 08:00 68 11/11/19 07:28 74 125/54 L 96 11/11/19 07:00 73 17 93 11/11/19 06:28 67 141/56 H 96 11/11/19 05:31 70 136/79 99 11/11/19 05:28 68 17 96 Laboratory Results Short CBC 11/10/19 11/10/19 11/11/19 Range/Units 16:29 22:38 04:29 WBC 11.03 H 14.12 H (4.8-10.8) K/uL Hgb 10.0 L 10.3 L 9.1 L (12.0-16.0) g/dL Hct 31.1 L 32.0 L 28.4 L (37-47) % Plt Count 168 158 (130-400) K/uL BMP 11/10/19 11/11/19 16:29 04:29 Sodium 135 L 136 Potassium 3.3 L 4.1 D Chloride 98 97 L Carbon Dioxide 27 27 BUN 33 H 42 H Creatinine 2.66 H 3.53 H D Glucose 94 135 H Calcium 8.2 L 7.5 L Cardiac Enzymes 11/10/19 Range/Units 16:29 Troponin I < 0.015 (0-0.045) ng/ml Liver Function 11/10/19 11/11/19 Range/Units 16:29 04:29 Total Bilirubin 0.6 0.5 (0.2-1) mg/dl Direct Bilirubin 0.2 (0-0.2) mg/dl AST 203 H 95 H (15-37) U/L ALT 103 H 86 H (12-78) U/L Alkaline Phosphatase 675 H 536 H (45-117) U/L Albumin 3.0 L 2.6 L (3.4-5.0) gm/dl Urine 11/10/19 Range/Units 19:27 Urine Color Jackman Urine Appearance Turbid A (Clear) Urine pH 6.5 (4.5-7.5) Ur Specific [place] 1.011 (1.000-1.030) Urine Protein 3+ H (Negative) Urine Glucose (UA) Negative (Negative) Diagnostic Findings XR chest 1V portable HISTORY: Intubation. Shortness of breath. COMPARISON: Chest 11/10/2019. FINDINGS: The heart remains enlarged. Endotracheal tube terminates 2.8 cm from the rusty. Left-sided central venous catheter terminates in the right atrium. This remains unchanged. The heart remains enlarged. Right-sided chest tube has been pulled back but remains within the right upper hemithorax. No pneumothorax. Diffuse interstitial and vascular thickening persists. Right lower lobe airspace opacity has progressed. Suspect small bilateral pleural effusions. IMPRESSION: 1. Satisfactory support line placement. 2. No definite pneumothorax. 3. Right lower lobe airspace opacity. 4. Mild interstitial pulmonary edema and cardiomegaly. Medications Administered Current Inpatient Medications Albuterol (Albuterol 0.083% Nebu Soln 3 Ml Vial) 2.5 mg NEB Q6R PRN PRN Reason: Wheezing Stop: 12/10/19 22:44 Last Admin: 11/11/19 12:42 Dose: 2.5 mg Documented by: Dextrose (Dextrose 50% 50 Ml Syringe) 25 - 50 ml IV UD PRN; Protocol PRN Reason: Hypoglycemia Protocol Stop: 12/11/19 00:22 Enteral Nutritional Formula (Novasource Renal 2.0 Ruben 1000ml Bag) 1,000 ml OG DAILY@0900 [facility]; Protocol Stop: 12/11/19 11:44 Last Admin: 11/11/19 13:16 Dose: 1,000 ml Documented by: Fentanyl Citrate (Fentanyl Citrate 100 Mcg/2 Ml Vial) 12.5 mcg IV Q1H PRN PRN Reason: pain Stop: 11/24/19 22:15 Glucagon (Glucagon For Inj 1 Mg Vial) 1 mg SQ UD PRN; Protocol PRN Reason: Hypoglycemia Protocol Stop: 12/11/19 00:22 Glucose (Glucose 10 Tabs/Tube) 4 - 8 tabs PO UD PRN; Protocol PRN Reason: Hypoglycemia Protocol Stop: 12/11/19 00:22 Glucose (Glucose 40% Gel 15 Gm Tube) 15 - 30 gm PO UD PRN; Protocol PRN Reason: Hypoglycemia Protocol Stop: 12/11/19 00:22 Heparin Sodium (Porcine) (Heparin Sod 5,000 Unit/0.5 Ml Vial) 5,000 units SQ Q12 [facility] Stop: 12/11/19 20:59 Hydralazine HCl (Hydralazine Hcl 25 Mg Tab) 25 mg OG TID [facility] Stop: 12/10/19 22:44 Last Admin: 11/11/19 09:52 Dose: Not Given Documented by: Propofol (Diprivan) 1,000 mg in 100 mls @ 8.64 mls/hr IV .[id number] [facility]; Protocol Stop: 11/13/19 17:14 Last Titration: 11/11/19 12:14 Dose: 15 mcg/kg/min, 8.6 mls/hr Documented by: Promethazine HCl 12.5 mg/ (Sodium Chloride) 50.5 mls @ 202 mls/hr IV Q6H PRN PRN Reason: Nausea And Vomiting Stop: 12/10/19 22:15 Levothyroxine Sodium 62.5 mcg/ (Syringe) 3.125 mls @ 2 mls/min IV DAILY@0900 [facility] Stop: 12/11/19 08:59 Last Admin: 11/11/19 09:10 Dose: 2 mls/min Documented by: Ampicillin Sodium/Sulbactam Sodium 3,000 mg/ Sodium Chloride 108 mls @ 216 mls/hr IV Q12H [facility] Stop: 11/18/19 00:00 Last Infusion: 11/11/19 14:04 Dose: Infused Documented by: Dexamethasone 5 mg/ Syringe 1.25 mls @ 1 mls/min IV Q6H [facility] Stop: 11/12/19 09:59 Last Admin: 11/11/19 10:15 Dose: 1 mls/min Documented by: Vancomycin HCl 1,750 mg/ (Sodium Chloride) 535 mls @ 200 mls/hr IV TODAY@1400 [facility] Stop: 11/11/19 16:40 Last Infusion: 11/11/19 16:00 Dose: Infused Documented by: Famotidine 20 mg/ Syringe 5 mls @ 2.5 mls/min IV QAM [facility] Stop: 12/12/19 08:59 Insulin Aspart (Insulin Aspart 100 Units/Ml 3 Ml Pen) 0 units SC Q6 [facility] Stop: 12/11/19 00:29 Last Admin: 11/11/19 10:54 Dose: Not Given Documented by: Ipratropium Dewey (Ipratropium Dewey Hfa Inhaler) 4 puffs INH Q6R [facility] Stop: 12/11/19 00:59 Last Admin: 11/11/19 07:09 Dose: Not Given Documented by: Isosorbide Mononitrate (Isosorbide [place] Extended Rel 30 Mg Tabcr) 30 mg PO DAILY [facility] Stop: 12/11/19 08:59 Last Admin: 11/11/19 09:52 Dose: Not Given Documented by: Miscellaneous (Icu Protocol For Hyperglycemia) 1 ea N/A PRN PRN; Protocol PRN Reason: Hyperglycemia Protocol Stop: 11/12/19 22:15 Miscellaneous (Carbohydrates For Hypoglycemia ) 15 - 30 gm PO UD PRN PRN Reason: Hypoglycemia Protocol Stop: 12/11/19 00:22 Miscellaneous Information (Ampicillin/Sulbactam Consult Active) 1 ea N/A UD PRN PRN Reason: Consult Stop: 12/10/19 22:24 Miscellaneous Information (Vancomycin Consult Active) 1 ea N/A UD PRN PRN Reason: Consult Stop: 12/11/19 09:17 Nutritional Formula (Prosource No Carb 30 Ml/Pkt) 30 ml OG BID [facility] Stop: 12/11/19 20:59 Pravastatin Sodium (Pravastatin Sod 40 Mg Tab) 40 mg NG HS [facility] Stop: 12/11/19 20:59 Venlafaxine HCl (Venlafaxine Hcl 37.5 Mg Tab) 37.5 mg PO BID [facility] Stop: 12/11/19 20:59 (1) Sepsis with acute hypoxic respiratory failure Sepsis type: sepsis due to unspecified organism Severe sepsis shock status: without septic shock Qualified Code(s): A41.9 - Sepsis, unspecified organism; R65.20 - Severe sepsis without septic shock; J96.01 - Acute respiratory failure with hypoxia (2) Aspiration pneumonia Aspiration pneumonia type: due to vomit Laterality: bilateral Lung location: lower lobe of lung Qualified Code(s): J69.0 - Pneumonitis due to inhalation of food and vomit
[2019-11-11] MEDS: VENLAFAXINE HCL 37.5 MG TAB PO SCH (20:31)
[2019-11-11] MEDS: PRAVASTATIN SOD 40 MG TAB NG SCH (20:32)
[2019-11-11] MEDS: HEPARIN SOD 5,000 UNIT/0.5 ML VIAL SQ SCH (20:33)
[2019-11-11] MEDS: PROSOURCE NO CARB 30 ML/PKT OG SCH (20:33)
[2019-11-12] MEDS: INSULIN ASPART 100 UNITS/ML 3 ML PEN SC SCH ×5 (00:09→23:14)
[2019-11-12] MEDS: AMPICILLIN/SULBACTAM SOD 3,000 MG in 0.9 % SODIUM CHLORIDE 100 ML IV SCH (00:09)
[2019-11-12] MEDS: propofoL 1,000 MG/100 ML VIAL IV SCH ×5 (00:27→14:05)
[2019-11-12] MEDS: dexAMETHasone 5 MG in SYRINGE 0 ML IV SCH (04:27)
[2019-11-12 04:47] LABS: Hematocrit (blood only) 24.7 % (37-47); Immature Granulocytes # (auto) 0.14 K/uL (0.00-0.02); Immature Granulocytes % (auto) 1.5 %; Lymphocytes % (auto) 6.4 %; Mean Corpuscular Hemoglobin 28.3 pg (25-34); Mean Corpuscular Hgb Conc 32.4 g/dL (32-36); Mean Corpuscular Volume 87.3 fL (80-100); Monocytes # (auto) 0.49 K/uL (0.11-0.59); Monocytes % (auto) 5.2 %; Neutrophils # (auto) 8.21 K/uL (1.4-6.5); Neutrophils % (auto) 86.9 %; Platelet Count 179 K/uL (130-400); RDW Coefficient of Variation 15.6 % (11.5-14.5); Red Blood Count 2.83 M/uL (4.2-5.4); White Blood Count 9.44 K/uL (4.8-10.8)
[2019-11-12 05:06] LABS: Albumin Level 2.5 gm/dl (3.4-5.0); BUN Creatinine Ratio 12.2 (10-20); Calcium 7.1 mg/dl (8.5-10.1); Creatinine Clr Calc Pharmacy 14.2 ml/min; Est GFR (Non-African American) 11.2; Potassium 3.8 mmol/L (3.5-5.1)
[2019-11-12 05:08] LABS: iSTAT Allen Test Pass; iSTAT Arterial Blood Gas HCO3 28 meg/L (19-24); iSTAT Arterial Blood Gas pCO2 37 mmHg (35-46); iSTAT Arterial Blood Gas pH 7.48 (7.35-7.45); iSTAT Arterial Blood Gas pO2 79 mmHg (80-95); iSTAT Carbon Dioxide 29 mmol/L (24-31); iSTAT FiO2 40 %; iSTAT Site L Radial
[2019-11-12 05:09] LABS: Albumin Globulin Ratio 0.6 (0.9-2); Bilirubin,Total 0.3 mg/dl (0.2-1); Globulin 4.2 gm/dl (2.5-4.0); Phosphorus 6.2 mg/dl (2.5-4.9); Total Protein 6.7 gm/dl (6.4-8.2)
[2019-11-12] MEDS: PROSOURCE NO CARB 30 ML/PKT OG SCH ×2 (07:25→20:43)
[2019-11-12] MEDS: VENLAFAXINE HCL 37.5 MG TAB PO SCH ×3 (07:25→20:42)
[2019-11-12] MEDS: FAMOTIDINE 20 MG in SYRINGE 3 ML IV SCH (07:27)
[2019-11-12] MEDS: HEPARIN SOD 5,000 UNIT/0.5 ML VIAL SQ SCH ×2 (07:28→20:43)
[2019-11-12] MEDS ORDERED: SODIUM CHLORIDE 0.9% 1000ML 1,000 ML IV PRN (07:35)
[2019-11-12] MEDS ORDERED: CALCIUM GLUCONATE 10% 2,000 MG in SODIUM CHLORIDE 0.9% 50 ML IV STA (07:41)
[2019-11-12] MEDS ORDERED: IRON SUCROSE 100 MG in SYRINGE 0 ML IV ONE (07:45)
[2019-11-12] MEDS ORDERED: EPOETIN ALFA 10,000 UNITS/ML VIAL IV ONE (07:45)
--- NOTE | 2019-11-12 07:51 | XRay Report ---
XR chest 1V portable HISTORY: Respiratory failure. COMPARISON: Chest 11/11/2019. FINDINGS: Endotracheal tube terminates 2.8 cm and the rusty. Left-sided dual-lumen central venous ca theter terminates in the right atrium. This remains unchanged. Nasogastric tube terminates below the diaphragm. The tip is not included on this study. Right-sided chest tube terminates in the right uppe r lung zone. This is also unchanged in position. No definite right-sided pneumothorax. The heart steven ins enlarged. Mild pulmonary edema and trace bilateral pleural effusions persist. Right lower lobe ai rspace opacity has slightly improved. IMPRESSION: 1. Satisfactory support line placement. 2. Right-sided chest tube is unchanged in position. No definite right pneumothorax. 3. Mild interstitial pulmonary edema, trace bilateral pleural effusions, and cardiomegaly persist. 4. Improved aeration within the right lower lobe airspace opacity. ACT 112: Negative or not required by law. Electronically signed by: Carlos Jenkins M.D. 11/12/2019 7:49 AM
[2019-11-12] MEDS: NOVASOURCE RENAL 2.0 CAL 1000ML BAG OG SCH ×2 (08:19→13:10)
[2019-11-12] MEDS: LEVOTHYROXINE SODIUM 62.5 MCG in SYRINGE 0 ML IV SCH (08:35)
--- NOTE | 2019-11-12 08:41 | Critical Care Progress Note ---
Date of Service November 12, 2019 Assessment & Plan Admission and Anticipated Discharge Date Admission Date: November 10, 2019 Reason Critically Ill: 74-year-old female here with a pMHx. significant for RENÉ on CPAP, Parkinson's, diastolic heart failure (EF 50-55% 2019), HTN, HLD, DM-II although last A1c 4.1, ESRD on HD, started on 11/09 through a tunneled HD catheter, presented with AMS, then vomited with concern for aspiration followed by hypoxemia which lead to intubation and who was admitted for airway and ventilator management along with management of right sided chest tube. Neuro - Sedation: Propofol currently weaned off Analgesia: Fentanyl discontinued today - altered mental status potentially due to toxic metabolic encephalopathy, dialysis disequilibrium vs. medication toxicity - CT head without acute intracranial findings - continue home Parkinson's medications through OG tube if patient is not extubated today Cardiac - - BP elevated, restarting Hydralazine and Norvasc continue to hold Imdur - patient tolerating dialysis today - Hx. of diastolic HF - Nephrology consulted - continue to evaluate fluid status, cumulative +333 mL - QTc 519 ms Respiratory - - acute on chronic respiratory failure potentially 2/2 aspiration event - blood gas today with findings of acute respiratory alkalosis on chronic CO2 retention potentially 2/2 RENÉ - discontinued Unasyn, started 7 day course of Ceftriaxone and one dose Vancomycin for aspiration PNA - Vancomycin given since pt. is MRSA nares +, Vanc. level 24.6 anticipated poor clearance given renal disease - right sided chest tube for pneumothorax, will keep in place until after patient is extubated, does not appear to be an air leak this morning - CXR today did not show pneumothorax or significant effusion - will remain intubated for at least 24 hours - patient does not have a air leak with deflation of cuff indicating swelling of the vocal cords - started Dexamethasone 5mg Q6H X 4 for concern of laryngotracheal trauma related to intubation - Hx. RENÉ on CPAP, records in the chart GI - - continue tube feeds, rate 10 cc/hr. increasing to 20cc/hr. - Famotidine BID given pt. will be on corticosteroids RENAL/LYTES - - ESRD, started HD on 11/09 - elevated phos at 6.2, will start phosphate binder if compatible with tube feeding - Replace lytes as needed - - No concerns at this time. ENDO - - Diabetic with recent A1C 4.1 on 08/15 - on sliding scale since pt. is on corticosteroids HEME - - normocytic anemia with H&H at 8 & 24.7, down trending potentially 2/2 chronic disease, not thought to be from the chest tube, with no significant effusion on CXR - Will continue monitor for now, transfuse if Hgb <7 ID - - discontinued Unasyn, started Ceftriaxone 7 day course and one dose of Vancomycin for concern of aspiration PNA - sputum cultures with staph aureus, will wait for sensitivities. If this is MSSA then we will continue with our current treatment. If this is MRSA we will consider switching antibiotics to Ceftaroline. - single elevated temp. this AM, WBC normalized - blood, sputum, urine cultures obtained - urine culture with gram negative bacilli - continue to monitor - parotitis vs. cellulitis on CT head INTEGUMENTARY - - No concerns at this time. LINES/IV ACCESS - - PIVs intact. - left subclavian - right chest tube DVT PROPHYLAXIS - - Heparin Thank you for allowing us to be part of this patient's care. Please refer to Dr. Forman''s documentation for any further recommendations. Supervising Physician Co-Signing Physician Notes Seen and examined. Discussed on multidisciplinary disciplinary rounds and with bedside nurse as well as family practice resident. Agree with assessment and plan as noted. Patient has shown improvement with minimal vent settings. She did not exhibit a ny cuff leak today and given her history of difficult intubation and potential traumatic intubation would favor continuing intubation mechanical ventilation for an additional 24 hours in the hopes that steroids will decrease any laryngeal/tracheal edema. She tolerated dialysis today. Continue antibiotics. Advance tube feeds to goal. Continue to follow metabolic encephalopathy. We will try and restart some of her parkinsonian medications. Subjective Awake and following commands this morning. Records from [facility] pulmonology were faxed and will be placed in the paper chart. Seen by Dr. Hernandez. Severe sleep apnea by AHI criteria. New CPAP set at 10-20 cmH2O although she has not used these settings at home yet. with 2L/min oxygen. She appears to be compliant with CPAP. Review of Systems Review of Systems: Unobtainable due to endotracheal tube Physical Exam Physical Exam: Eyes - pupils round reactive to light, tracking ENMT - ET Tube in place. Without perioral cyanosis. Buccal mucosa pink and moist Neck - normal visual inspection Respiratory - normal respiratory effort, diminished breath sounds at the bases - Chest tube in place in the RIGHT axillary line bloody fluid Cardiovascular - No clubbing or peripheral cyanosis. 2+ pretibial edema present - regular rate, no m/r/g Gastrointestinal (Abdomen) - soft, nTTP Skin - no rashes, warm and dry Neurologic - No focal neurological deficits. Sedated, but opens eyes to stimuli and when spoken to Results & Data Results & Data ([facility]) Vital Signs (Past 12 Hours) Vital Signs Temp Pulse Resp BP Pulse Ox 11/12/19 07:35 81 17 95 11/12/19 05:13 108 H 20 98 11/12/19 05:07 80 152/64 H 95 11/12/19 04:07 38.1 C H 81 139/59 L 94 11/12/19 03:20 86 23 96 11/12/19 02:07 81 133/97 95 11/12/19 01:07 91 H 137/56 L 94 11/12/19 00:13 77 24 96 11/12/19 00:07 37.6 C H 75 139/66 95 11/11/19 23:07 79 142/54 H 96 11/11/19 22:16 75 11/11/19 22:07 72 138/65 96 11/11/19 21:16 70 22 96 11/11/19 21:07 71 138/68 97 CBC Results Results Complete Blood Count Results: RBC 2.83 M/uL (4.2-5.4) L 11/12/19 WBC 9.44 K/uL (4.8-10.8) 11/12/19 Hgb 8.0 g/dL (12.0-16.0) L 11/12/19 Hct 24.7 % (37-47) L 11/12/19 Plt Count 179 K/uL (130-400) 11/12/19 Chemistry (BMP) Results BMP Results: Sodium 138 mmol/L (136-145) 11/12/19 Potassium 3.8 mmol/L (3.5-5.1) 11/12/19 Chloride 102 mmol/L (98-107) 11/12/19 BUN 46 mg/dl (7-18) H 11/12/19 Creatinine 3.77 mg/dl (0.6-1.2) H 11/12/19 Glucose 146 mg/dl (70-99) H 11/12/19 Resident Activity Tracking Resident Involvement: Resident Care Provided Care Provided: Adult [facility] Medicine
[2019-11-12] MEDS: ISOSORBIDE MONO EXTENDED REL 30 MG TABCR PO SCH (10:26)
[2019-11-12] MEDS: cefTRIAXone SODIUM 2,000 MG in DEXTROSE 5% 50 ML IV SCH (12:45)
[2019-11-12] MEDS: AMLODIPINE BESYLATE 5 MG TAB PO SCH (13:10)
--- NOTE | 2019-11-12 13:47 | Billing Data ---
Date of Service November 12, 2019 Coding Level of Care Code 10445 Subseq Hosp Care Lvl 3
[2019-11-12] MEDS: CARBIDOPA/LEVODOPA 25/100MG TAB PO SCH (18:27)
--- NOTE | 2019-11-12 18:50 | Nephrology Progress Note ---
Date of Service November 12, 2019 Assessment & Plan (1) AMS (altered mental status): patient has had frequent admissions with this, most recently late last month. DDX includes toxic /metabolic encephalopathy ( lyrica adjustment recommended last month had apparently not been implemented after d/c; and still with polypharmacy), aspiration pneumonia, stroke, DDS. continue workup, supportive care, and monitoring (2) Dialysis disequilibrium syndrome: clinical picture may be consistent with this > she has risk ff in her chronic neurologic disease, her elevated BUN prior to tx, and a routine OP tx rather than a more gentle one at initiation of therapy as OP. however, not typical in that DDS usually presents early in tx, not immediately after tx as this did. -tolerated HD today; plan tx tomorrow 4 H then rest until Friday (3) Aspiration pneumonia: on abtx and vent; may be cause of her near fever; would follow blood cxs as well (4) ESRD (end stage renal disease) on dialysis: chemistries and anemia status for dialysis acceptable; some mild volume overload but not florid. plan HD today and tomorrow, Sat, depending on clinical course Admission and Anticipated Discharge Date Admission Date: November 10, 2019 Subjective seen on rounds at approximately 1315; tolerated 3h HD today with 1.5L off; some trigeminy noted during tx. less sedated today at [facility] Review of Systems Review of Systems: Unobtainable due to endotracheal tube Physical Exam Constitutional: well developed, well nourished, + obese and + mechanically ventilated Eyes: + anicteric sclerae ENMT: Ears: no external ear abnormality Nose: no external nose abnormality Mouth: + dry oral mucous membranes Neck: no nuchal rigidity Respiratory: normal respiratory effort Auscultation: + diminished lung sounds L chest tube, R chest TDC Cardiovascular: Rate/Rhythm: regular rate and regular rhythm Extremities: + edema (trace BL) Gastrointestinal (Abdomen): Inspection/Auscultation: normal bowel sounds Percussion/Palpation: abdomen soft; abdomen nontender Musculoskeletal: Head/Neck/Chest: normocephalic and head atraumatic Skin: no rashes, warm and dry Neurologic: intubated, lightly sedated Results & Data ([facility]) Vital Signs (Past 12 Hours) Vital Signs Temp Pulse Pulse Resp BP BP Pulse Ox 11/12/19 18:15 88 23 95 11/12/19 18:02 83 159/72 H 96 11/12/19 17:02 92 H 151/68 H 96 11/12/19 16:02 76 146/60 H 95 11/12/19 16:00 83 11/12/19 15:19 77 24 95 11/12/19 15:02 69 140/53 L 94 11/12/19 14:30 37.2 C 11/12/19 14:03 83 147/61 H 96 11/12/19 13:19 81 147/80 H 95 11/12/19 13:00 78 22 96 11/12/19 12:50 37.5 C 75 154/79 H 11/12/19 12:33 77 154/79 H 98 11/12/19 12:16 80 151/83 H 97 11/12/19 12:00 74 150/78 H 11/12/19 11:45 78 155/83 H 11/12/19 11:31 76 147/78 H 97 11/12/19 11:30 69 147/78 H 11/12/19 11:15 71 141/76 H 11/12/19 11:00 71 150/65 H 11/12/19 10:51 65 146/74 H 98 11/12/19 10:45 63 141/61 H 11/12/19 10:30 68 148/80 H 11/12/19 10:21 79 148/80 H 97 11/12/19 10:15 73 142/73 H 11/12/19 10:00 76 153/85 H 11/12/19 09:55 84 18 97 11/12/19 09:51 88 153/85 H 100 11/12/19 09:45 80 148/62 H 11/12/19 09:33 75 143/63 H 97 11/12/19 09:30 79 143/63 H 11/12/19 09:21 37.6 C H 79 11/12/19 09:07 85 156/65 H 95 11/12/19 08:41 37.6 C H 11/12/19 08:07 75 155/66 H 94 11/12/19 08:00 86 11/12/19 07:35 81 17 95 11/12/19 07:07 76 155/66 H 95 Laboratory Results 11/12/19 04:34 11/12/19 04:34 (1) AMS (altered mental status) Altered mental status type: somnolence Qualified Code(s): R40.0 - Somnolence (2) Aspiration pneumonia Aspiration pneumonia type: due to vomit Laterality: bilateral Lung location: lower lobe of lung Qualified Code(s): J69.0 - Pneumonitis due to inhalation of food and vomit
--- NOTE | 2019-11-12 18:56 | Hospitalist Progress Note ---
Date of Service November 12, 2019 Assessment & Plan (1) Acute on chronic respiratory failure with hypoxemia: Multifactorial including possible aspiration pneumonia in setting of chronic COPD, currently on Unasyn and intubated. Abx were switched to Ceftriaxone and Vancomycin and steroids were added with h/o traumatic intubation to reduce any laryngeal swelling that may be present. Additionally intubation was complicated by a pneumothorax on the right requiring a chest tube which will be continued until she is extubated. Cont current ICU level care. (2) Chronic diastolic heart failure: Chronic diastolic dysfunction with pulmonary congestion 2/2 ESRD. Torsemide held and fluid management with HD. (3) Dialysis disequilibrium syndrome: Recently started dialysis with possible aspiration pneumonia as a result of nausea and vomiting after first HD session. Nephro consulted to continue HD while hospitalized. (4) ESRD (end stage renal disease) on dialysis: Per Nephro (5) Admitted to intensive care unit: (6) Aspiration pneumonia: Unasyn, switched to Ceftriaxone and Vanc, on mechanical ventilation. Was initially given Solumedrol in setting of hemoptysis with stable H/H (7) Acute UTI: cont current abx. (8) Pneumothorax on right: cont chest tube, currently in place, until extubated per ICU team. (9) Sepsis with acute hypoxic respiratory failure: 2/2 pneumonia. Cont abx and ICU support with mechanical ventilation. Resuscitated shortly after admission with some intermittent fevers popping through. Cont ICU care. (10) Metabolic acidosis: Management per Neohrology (11) Morbid obesity: (12) DM type 2 (diabetes mellitus, type 2): Cont insulin per ICU protocol. (13) DVT prophylaxis: heparin Full Code Dispo-cont ICU care. Will assess functional status when she is extubated and out of the ICU regarding a plan for discharge. Margo Guillen DO [facility] Hospitalist Admission and Anticipated Discharge Date Admission Date: November 10, 2019 Subjective Intubated and sedated Receiving OG tube feeds at 30cc/hr Review of Systems Review of Systems: Unobtainable due to endotracheal tube and Unobtainable due to reduced consciousness Physical Exam Physical Exam: CONSTITUTIONAL: obese, vitals as above, intubated and sedated EYES: PERRL normal conjunctivae, no scleral icterus ENT: external ear and nose normal RESPIRATORY: clear to auscultation bilaterally, no crackles, rales or wheezes, normal respiratory effort CARDIOVASCULAR: regular rate and rhythm, S1 and 2 heard without murmurs, gallops or rubs, no peripheral edema CHEST: tunneled HD catheter GASTROINTESTINAL: soft, nontender, nondistended MUSCULOSKELETAL: sedated so cannot perform, head is normocephalic and atraumatic SKIN: warm and dry NEUROLOGIC: sedated PSYCHIATRIC: sedated, intubated, cannot perform Results & Data Results & Data ([facility]) Vital Signs (Past 12 Hours) Vital Signs Temp Pulse Pulse Resp BP BP Pulse Ox 11/12/19 18:15 88 23 95 11/12/19 18:02 83 159/72 H 96 11/12/19 17:02 92 H 151/68 H 96 11/12/19 16:02 76 146/60 H 95 11/12/19 16:00 83 11/12/19 15:19 77 24 95 11/12/19 15:02 69 140/53 L 94 11/12/19 14:30 37.2 C 11/12/19 14:03 83 147/61 H 96 11/12/19 13:19 81 147/80 H 95 11/12/19 13:00 78 22 96 11/12/19 12:50 37.5 C 75 154/79 H 11/12/19 12:33 77 154/79 H 98 11/12/19 12:16 80 151/83 H 97 11/12/19 12:00 74 150/78 H 11/12/19 11:45 78 155/83 H 11/12/19 11:31 76 147/78 H 97 11/12/19 11:30 69 147/78 H 11/12/19 11:15 71 141/76 H 11/12/19 11:00 71 150/65 H 11/12/19 10:51 65 146/74 H 98 11/12/19 10:45 63 141/61 H 11/12/19 10:30 68 148/80 H 11/12/19 10:21 79 148/80 H 97 11/12/19 10:15 73 142/73 H 11/12/19 10:00 76 153/85 H 11/12/19 09:55 84 18 97 11/12/19 09:51 88 153/85 H 100 11/12/19 09:45 80 148/62 H 11/12/19 09:33 75 143/63 H 97 11/12/19 09:30 79 143/63 H 11/12/19 09:21 37.6 C H 79 11/12/19 09:07 85 156/65 H 95 11/12/19 08:41 37.6 C H 11/12/19 08:07 75 155/66 H 94 11/12/19 08:00 86 11/12/19 07:35 81 17 95 11/12/19 07:07 76 155/66 H 95 Laboratory Results Short CBC 11/12/19 Range/Units 04:34 WBC 9.44 (4.8-10.8) K/uL Hgb 8.0 L (12.0-16.0) g/dL Hct 24.7 L (37-47) % Plt Count 179 (130-400) K/uL BMP 11/12/19 04:34 Sodium 138 Potassium 3.8 Chloride 102 Carbon Dioxide 27 BUN 46 H Creatinine 3.77 H Glucose 146 H Calcium 7.1 L Liver Function 11/12/19 Range/Units 04:34 Total Bilirubin 0.3 (0.2-1) mg/dl AST 33 (15-37) U/L ALT 79 H (12-78) U/L Alkaline Phosphatase 419 H (45-117) U/L Albumin 2.5 L (3.4-5.0) gm/dl Diagnostic Findings XR chest 1V portable HISTORY: Respiratory failure. COMPARISON: Chest 11/11/2019. FINDINGS: Endotracheal tube terminates 2.8 cm and the rusty. Left-sided dual- lumen central venous catheter terminates in the right atrium. This remains unchanged. Nasogastric tube terminates below the diaphragm. The tip is not included on this study. Right-sided chest tube terminates in the right upper lung zone. This is also unchanged in position. No definite right-sided pneumothorax. The heart remains enlarged. Mild pulmonary edema and trace bilateral pleural effusions persist. Right lower lobe airspace opacity has slightly improved. IMPRESSION: 1. Satisfactory support line placement. 2. Right-sided chest tube is unchanged in position. No definite right pneumothorax. 3. Mild interstitial pulmonary edema, trace bilateral pleural effusions, and cardiomegaly persist. 4. Improved aeration within the right lower lobe airspace opacity. Medications Administered Current Inpatient Medications Albuterol (Albuterol 0.083% Nebu Soln 3 Ml Vial) 2.5 mg NEB Q6R PRN PRN Reason: Wheezing Stop: 12/10/19 22:44 Last Admin: 11/11/19 12:42 Dose: 2.5 mg Documented by: Amlodipine Besylate (Amlodipine Besylate 5 Mg Tab) 5 mg PO QAM [place] Stop: 12/12/19 09:59 Last Admin: 11/12/19 13:10 Dose: 5 mg Documented by: Carbidopa/Levodopa (Carbidopa/Levodopa 25/100mg Tab) 1 tab PO TIDM [place] Stop: 12/12/19 16:59 Last Admin: 11/12/19 18:27 Dose: 1 tab Documented by: Dextrose (Dextrose 50% 50 Ml Syringe) 25 - 50 ml IV UD PRN; Protocol PRN Reason: Hypoglycemia Protocol Stop: 12/11/19 00:22 Enteral Nutritional Formula (Novasource Renal 2.0 Ruben 1000ml Bag) 1,000 ml OG DAILY@0900 [facility]; Protocol Stop: 12/11/19 11:44 Last Admin: 11/12/19 13:10 Dose: 1,000 ml Documented by: Glucagon (Glucagon For Inj 1 Mg Vial) 1 mg SQ UD PRN; Protocol PRN Reason: Hypoglycemia Protocol Stop: 12/11/19 00:22 Glucose (Glucose 10 Tabs/Tube) 4 - 8 tabs PO UD PRN; Protocol PRN Reason: Hypoglycemia Protocol Stop: 12/11/19 00:22 Glucose (Glucose 40% Gel 15 Gm Tube) 15 - 30 gm PO UD PRN; Protocol PRN Reason: Hypoglycemia Protocol Stop: 12/11/19 00:22 Heparin Sodium (Porcine) (Heparin Sod 5,000 Unit/0.5 Ml Vial) 5,000 units SQ Q12 [place] Stop: 12/11/19 20:59 Last Admin: 11/12/19 07:28 Dose: 5,000 units Documented by: Hydralazine HCl (Hydralazine Hcl 25 Mg Tab) 25 mg OG TID [place] Stop: 12/10/19 22:44 Last Admin: 11/12/19 13:10 Dose: 25 mg Documented by: Propofol (Diprivan) 1,000 mg in 100 mls @ 8.64 mls/hr IV .[id number] [facility]; Protocol Stop: 11/13/19 17:14 Last Admin: 11/12/19 14:05 Dose: Not Given Documented by: Promethazine HCl 12.5 mg/ (Sodium Chloride) 50.5 mls @ 202 mls/hr IV Q6H PRN PRN Reason: Nausea And Vomiting Stop: 12/10/19 22:15 Levothyroxine Sodium 62.5 mcg/ (Syringe) 3.125 mls @ 2 mls/min IV DAILY@0900 [facility] Stop: 12/11/19 08:59 Last Admin: 11/12/19 08:35 Dose: 2 mls/min Documented by: Famotidine 20 mg/ Syringe 5 mls @ 2.5 mls/min IV QAM [facility] Stop: 12/12/19 08:59 Last Admin: 11/12/19 07:27 Dose: 2.5 mls/min Documented by: Ceftriaxone Sodium 2,000 mg/ (Dextrose) 70 mls @ 100 mls/hr IV DAILY [facility]; Protocol Stop: 11/19/19 09:29 Last Infusion: 11/12/19 13:39 Dose: Infused Documented by: Insulin Aspart (Insulin Aspart 100 Units/Ml 3 Ml Pen) 0 units SC Q6 [place] Stop: 12/11/19 00:29 Last Admin: 11/12/19 18:40 Dose: Not Given Documented by: Ipratropium [place] (Ipratropium [place] Hfa Inhaler) 4 puffs INH Q6R [facility] Stop: 12/11/19 00:59 Last Admin: 11/11/19 07:09 Dose: Not Given Documented by: Isosorbide Mononitrate (Isosorbide [place] Extended Rel 30 Mg Tabcr) 30 mg PO DAILY [facility] Stop: 12/11/19 08:59 Last Admin: 11/12/19 10:26 Dose: Not Given Documented by: Miscellaneous (Icu Protocol For Hyperglycemia) 1 ea N/A PRN PRN; Protocol PRN Reason: Hyperglycemia Protocol Stop: 11/12/19 22:15 Miscellaneous (Carbohydrates For Hypoglycemia ) 15 - 30 gm PO UD PRN PRN Reason: Hypoglycemia Protocol Stop: 12/11/19 00:22 Nutritional Formula (Prosource No Carb 30 Ml/Pkt) 30 ml OG BID [facility] Stop: 12/11/19 20:59 Last Admin: 11/12/19 07:25 Dose: 30 ml Documented by: Pramipexole Dihydrochloride (Pramipexole Dihydrochlo 0.25 Mg Tab) 0.25 mg PO HS [facility] Stop: 12/12/19 20:59 Pravastatin Sodium (Pravastatin Sod 40 Mg Tab) 40 mg NG HS [facility] Stop: 12/11/19 20:59 Last Admin: 11/11/19 20:32 Dose: 40 mg Documented by: Venlafaxine HCl (Venlafaxine Hcl 37.5 Mg Tab) 37.5 mg PO BID [facility] Stop: 12/11/19 20:59 Last Admin: 11/12/19 08:19 Dose: 37.5 mg Documented by: (1) Sepsis with acute hypoxic respiratory failure Sepsis type: sepsis due to unspecified organism Severe sepsis shock status: without septic shock Qualified Code(s): A41.9 - Sepsis, unspecified organism; R65.20 - Severe sepsis without septic shock; J96.01 - Acute respiratory failure with hypoxia (2) Aspiration pneumonia Aspiration pneumonia type: due to vomit Laterality: bilateral Lung location: lower lobe of lung Qualified Code(s): J69.0 - Pneumonitis due to inhalation of food and vomit
[2019-11-12] MEDS: PRAMIPEXOLE DIHYDROCHLO 0.25 MG TAB PO SCH (20:41)
[2019-11-12] MEDS: PRAVASTATIN SOD 40 MG TAB NG SCH (20:41)
[2019-11-13] MEDS: propofoL 1,000 MG/100 ML VIAL IV SCH ×2 (00:43→07:36)
[2019-11-13 04:52] LABS: Hematocrit (blood only) 28.6 % (37-47); Hemoglobin 9.2 g/dL (12.0-16.0); Mean Corpuscular Hemoglobin 28.4 pg (25-34); Mean Corpuscular Hgb Conc 32.2 g/dL (32-36); Mean Corpuscular Volume 88.3 fL (80-100); Mean Platelet Volume 11.5 fL (7.4-10.4); Platelet Count 237 K/uL (130-400); RDW Coefficient of Variation 15.6 % (11.5-14.5); RDW Standard Deviation 50.3 fL (36.4-46.3); Red Blood Count 3.24 M/uL (4.2-5.4); White Blood Count 14.96 K/uL (4.8-10.8)
[2019-11-13 05:29] LABS: Albumin Globulin Ratio 0.6 (0.9-2); Albumin Level 2.7 gm/dl (3.4-5.0); BUN Creatinine Ratio 12.5 (10-20); Bilirubin,Total 0.3 mg/dl (0.2-1); Calcium 7.8 mg/dl (8.5-10.1); Creatinine Clr Calc Pharmacy 15.7 ml/min; Est GFR (African American) 14.9; Est GFR (Non-African American) 12.9; Globulin 4.3 gm/dl (2.5-4.0); Magnesium 1.9 mg/dl (1.8-2.4); Phosphorus 4.2 mg/dl (2.5-4.9); Potassium 3.2 mmol/L (3.5-5.1)
[2019-11-13] MEDS: INSULIN ASPART 100 UNITS/ML 3 ML PEN SC SCH ×4 (05:33→23:39)
[2019-11-13 05:44] LABS: iSTAT Allen Test Pass; iSTAT Art Bld Gas pCO2 Correct 39 mmHg (35-46); iSTAT Art Bld Gas pH Corrected 7.457 (7.35-7.45); iSTAT Arterial Blood Gas HCO3 27 meg/L (19-24); iSTAT Arterial Blood Gas pCO2 38 mmHg (35-46); iSTAT Arterial Blood Gas pH 7.47 (7.35-7.45); iSTAT Arterial Blood Gas pO2 61 mmHg (80-95); iSTAT Arterial Blood Gas pO2 C 65; iSTAT Carbon Dioxide 29 mmol/L (24-31); iSTAT FiO2 40 %; iSTAT Hematocrit 27 % (37-47); iSTAT Hemoglobin 9.2 g/dl (12.0-16.0); iSTAT Potassium 3.2 mmol/L (3.3-5.0); iSTAT Site L Radial; iSTAT Sodium 137 mmol/L (135-144)
[2019-11-13 05:47] LABS: Basophils # (auto) 0.03 K/uL (0-0.2); Basophils % (auto) 0.2 %; Eosinophils # (auto) 0.21 K/uL (0-0.5); Eosinophils % (auto) 1.4 %; Immature Granulocytes # (auto) 0.79 K/uL (0.00-0.02); Immature Granulocytes % (auto) 5.3 %; Lymphocytes # (auto) 1.72 K/uL (1.2-3.4); Lymphocytes % (auto) 11.5 %; Monocytes # (auto) 1.95 K/uL (0.11-0.59); Neutrophils # (auto) 10.26 K/uL (1.4-6.5); Neutrophils % (auto) 68.6 %; RBC Morphology Unremarkable
[2019-11-13] MEDS: AMLODIPINE BESYLATE 5 MG TAB PO SCH (07:39)
[2019-11-13] MEDS: CARBIDOPA/LEVODOPA 25/100MG TAB PO SCH ×3 (07:39→16:30)
[2019-11-13] MEDS: VENLAFAXINE HCL 37.5 MG TAB PO SCH ×2 (07:39→19:57)
[2019-11-13] MEDS: HEPARIN SOD 5,000 UNIT/0.5 ML VIAL SQ SCH (07:39)
[2019-11-13] MEDS: PROSOURCE NO CARB 30 ML/PKT OG SCH (07:40)
[2019-11-13] MEDS: NOVASOURCE RENAL 2.0 CAL 1000ML BAG OG SCH (07:40)
--- NOTE | 2019-11-13 07:44 | XRay Report ---
SINGLE VIEW CHEST CLINICAL HISTORY: Respiratory failure. FINDINGS: 2 AP, portable, upright chest radiographs are compared to study dated 11/12/2019 and correla sandrine with chest CT dated 11/10/2019. The examination is degraded by portable technique and patient rota tion. Endotracheal and enteric tubes are unchanged in position, as is a left subclavian central venou s catheter. A chest tube is again seen projecting over the right hemithorax. The heart is enlarged. T here is pulmonary vascular congestion. There are small pleural effusions with bibasilar consolidation . No pneumothorax is seen. The skeletal structures are osteopenic. The bony thorax is grossly intact. Degenerative change is seen throughout the thoracic spine. IMPRESSION: 1. Stable lines and tubes. 2. Cardiomegaly with evidence of congestive failure. 3. Small pleural effusions with bibasilar consolidation. 4. A right-sided chest tube is again noted. No pneumothorax is clearly seen. ACT 112: Negative or not required by law. Electronically signed by: Deep Smith M.D. 11/13/2019 7:43 AM
--- NOTE | 2019-11-13 07:51 | Critical Care Progress Note ---
Date of Service November 13, 2019 Assessment & Plan (1) Acute on chronic respiratory failure with hypoxemia: Reason Critically Ill: 74-year-old female here with a pMHx. significant for RENÉ on CPAP, Parkinson's, diastolic heart failure (EF 50-55% 2019), HTN, HLD, DM-II although last A1c 4.1, ESRD on HD, started on 11/09 through a tunneled HD catheter, presented with AMS, then vomited with concern for aspiration followed by hypoxemia which lead to intubation and who was admitted for airway and ventilator management along with management of right sided chest tube. 24-hour events: Patient underwent repeat hemodialysis yesterday. She remains intermittently confused. She has been hemodynamically stable. She was on minimal vent settings yesterday however deflation of the cuff revealed no significant air leak so we elected to keep her intubated and allow steroids an additional 24 hours to try and decrease laryngeal edema associated with traumatic intubation. She is tolerating pressure support ventilation. Recommendations: Neuro - Patient remains off all sedative medications. She is awake and following some commands this morning. She reportedly is very hard of hearing and this may complicate some of her neuro exam. Given her cardiac arrest, she is at risk for anoxic encephalopathy although her exam is nonfocal and this appears less likely. 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 We will pursue trial of extubation. Continue her Parkinson's medications but will decrease medications known to potentially be associated with encephalopathy to have her prior doses to prevent withdrawal but allow for some metabolic clearance. Review of the patient's prior clinical notes indicate multiple prior admissions for encephalopathy so this does not appear to be a new finding. There may be some component of underlying dementia as well. Defer additional outpatient testing to her neurologist. Cardiac - History of diastolic heart failure and hypertension: Continue antihypertensive medications (hydralazine, isosorbide, and Norvasc). Patient may benefit from an HARESH inhibitor now that she is on dialysis but will defer to nephrology. Fluid removal per nephrology with dialysis. QTc slightly prolonged and will continue to trend. Respiratory - Multifactorial due to fluid overload and potential pulmonary edema associated with diastolic dysfunction. She is doing well this morning and will pursue tri al of extubation. Pleural effusions will likely respond to continued fluid removal associated with dialysis. She will require incentive spirometry. Okay to discontinue steroids at this point time. Patient had an iatrogenic/traumatic pneumothorax. Chest tube is in place with no leak and no output. On chest x- ray the tube appears to be migrating and is almost out of the chest. We will clamp the tube and repeat chest x-ray in a few hours. If it looks good, the chest tube will be discontinued. Patient reportedly has a history of sleep disordered breathing but I do not have access to her prior studies. She apparently was transitioned to either BiPAP or AVAPS recently. We do not have her machine. I will empirically place her on BiPAP / nightly. If her can bring in her home machine that may be helpful. GI - Was on tube feeds which are being held for extubation. Will need swallow study prior to initiation of oral intake. Speech therapy consult entered. RENAL/LYTES - Per nephrology: Continue hemodialysis support. Volume status slightly up. Electrolytes acceptable. Acid-base status acceptable. - - No concerns at this time. ENDO - Sliding scale insulin. Continue Synthroid HEME - Mild anemia. No evidence of blood loss. No indication for transfusion. C ontinue to monitor. ID - Significance of Klebsiella in the urine and dialysis patient is somewhat u nclear. Her white blood cell count is elevated to 14 today although that could be related to steroids. Staph aureus was identified from the sputum, sensitivities pending. She received 1 dose of vancomycin which given her clearance should last for several days so we will hold on any additional van comycin pending sensitivities. Continue Rocephin to complete total of 7-day courses of antimicrobial therapy INTEGUMENTARY - - No concerns at this time. Will increase activity to out of bed and dis continue Kirby catheter. PT OT consultations. LINES/IV ACCESS - - PIVs intact. - left subclavian HD line - right chest tube DVT PROPHYLAXIS - - Heparin (2) Dialysis disequilibrium syndrome: (3) ESRD (end stage renal disease) on dialysis: (4) Admitted to intensive care unit: (5) Multifocal pneumonia: Admission and Anticipated Discharge Date Admission Date: November 10, 2019 Subjective Patient seen and examined. EMR reviewed. Patient is intubated and sedated Physical Exam Constitutional: WD/WN, vitals as above + mechanically ventilated Neck: trachea midline, no thyromegaly Respiratory: normal respiratory effort, lungs clear to auscultation Cardiovascular: RRR, no murmur, no edema Gastrointestinal (Abdomen): normal bowel sounds, soft, nontender, no hepatosplenomegaly Musculoskeletal: Extremities: extremities normal to inspection Skin: no rashes, warm and dry Neurologic: Awake with eyes open. She intermittently follows commands. Lymphatic: no cervical lymphadenopathy Results & Data Results & Data ([facility]) Vital Signs (Past 12 Hours) Vital Signs Temp Pulse Resp BP Pulse Ox 11/13/19 06:06 78 17 95 11/13/19 06:00 77 20 132/64 92 11/13/19 05:30 79 20 92 11/13/19 05:00 77 20 117/52 L 94 11/13/19 04:50 72 20 93 11/13/19 04:30 74 20 95 11/13/19 04:00 37.8 C H 71 20 131/68 93 11/13/19 03:30 67 20 92 11/13/19 03:00 75 20 124/54 L 94 11/13/19 02:30 75 20 93 11/13/19 02:00 80 20 130/56 L 93 11/13/19 01:30 76 20 93 11/13/19 01:00 78 20 118/60 93 11/13/19 00:30 79 20 96 11/13/19 00:25 80 20 95 11/13/19 00:00 37.8 C H 74 20 131/58 L 95 11/12/19 23:30 81 96 11/12/19 23:00 77 20 132/54 L 95 11/12/19 22:30 76 20 95 11/12/19 22:00 72 20 132/59 L 95 11/12/19 21:42 81 23 95 11/12/19 21:30 70 20 96 11/12/19 21:00 75 20 131/56 L 96 11/12/19 20:30 70 20 96 11/12/19 20:00 37.3 C 79 20 127/65 96 Laboratory Results 11/13/19 04:26 11/13/19 04:26 Diagnostic Findings Chest x-ray from today was independently reviewed. Hemodialysis catheter appears to terminate in the inferior vena cava. Tubes and lines are unchanged Chest tube and endotracheal tube in position. There are persistent small bilateral pleural effusions. Coding Level of Care Code 81072 Subseq Hosp Care Lvl 3 Diagnoses Acute on chronic respiratory failure with hypoxemia J96.21 Dialysis disequilibrium syndrome E87.8 ESRD (end stage renal disease) on dialysis N18.6; Z99.2 Admitted to intensive care unit Z78.9 Multifocal pneumonia J18.9
[2019-11-13] MEDS ORDERED: SODIUM CHLORIDE 0.9% 1000ML 1,000 ML IV PRN (07:54)
[2019-11-13] MEDS ORDERED: RACEPINEPHRINE 2.25% NEBU SOLN 0.5 ML VIAL NEB STA (07:54)
[2019-11-13] MEDS: cefTRIAXone SODIUM 2,000 MG in DEXTROSE 5% 50 ML IV SCH (07:58)
[2019-11-13] MEDS: FAMOTIDINE 20 MG in SYRINGE 3 ML IV SCH (07:58)
[2019-11-13] MEDS ORDERED: EPOETIN ALFA 10,000 UNITS/ML VIAL IV ONE (08:30)
[2019-11-13] MEDS ORDERED: IRON SUCROSE 100 MG in SYRINGE 0 ML IV ONE (08:30)
[2019-11-13] MEDS: LEVOTHYROXINE SODIUM 62.5 MCG in SYRINGE 0 ML IV SCH (08:49)
--- NOTE | 2019-11-13 10:30 | Procedure Note ---
Procedure Note Date of Service November 13, 2019 Procedural: Removal of right-sided chest tube. Indication resolution of previously noted pneumothorax. Surgical Scheduler Dr. Forman Anesthesia none Estimated blood loss none Patient's chest tube is been clamped for over 2 hours. Follow-up chest x-ray demonstrated no pneumothorax. The dressing was taken down. Stay sutures were removed. The chest tube was pulled on expiration and an occlusive dressing applied. Patient tolerated the procedure well without complication. Coding CPT Codes Pulmonary/Thoracic - Pulmonary and Thoracic: 79142 Remove lung catheter ([id number]) [facility] [place] Procedure Codes (Charges) Pulmonary/Thoracic Procedure 1: Pulmonary and Thoracic: 57871 Remove lung catheter
--- NOTE | 2019-11-13 10:47 | XRay Report ---
SINGLE VIEW CHEST CLINICAL HISTORY: Tube removal. FINDINGS: An AP, portable, upright chest radiograph is compared to study performed earlier the same d ay 11/13/2019 and correlated with chest CT dated 11/10/2019. The examination is degraded by portable te chnique and patient rotation. Endotracheal and enteric tubes have been removed. A left subclavian oswaldo tral venous catheter is unchanged in position. A chest tube is again seen projecting over the right h emithorax. The heart is enlarged. There is pulmonary vascular congestion. There are right larger than left pleural effusions with bibasilar consolidation. No pneumothorax is seen. The skeletal structure s are osteopenic. The bony thorax is grossly intact. Degenerative change is seen throughout the thora cic spine. IMPRESSION: 1. Endotracheal and enteric tubes have been removed. 2. Cardiomegaly with evidence of congestive failure. 3. Small pleural effusions with bibasilar consolidation. 4. A right-sided chest tube is again noted. No pneumothorax is clearly seen. ACT 112: Negative or not required by law. Electronically signed by: Deep Smith M.D. 11/13/2019 10:45 AM
--- NOTE | 2019-11-13 13:08 | Hospitalist Progress Note ---
Date of Service November 13, 2019 Assessment & Plan (1) Acute on chronic respiratory failure with hypoxemia: Likely related to aspiration pneumonia during episode of confusion related to initial dialysis treatment. She continues on Unasyn and has been extubated and doing well from a breathing standpoint. Chest tube also removed. Unasyn was switched to Vanc and ceftriaxone per culture results. HD today and was able to pull off additional fluid with treatment. Cont supplemental oxygen and abx in the ICU. (2) Chronic diastolic heart failure: Chronic diastolic dysfunction with pulmonary congestion 2/2 ESRD. Torsemide held and fluid management with HD. (3) ESRD (end stage renal disease) on dialysis: Recently started dialysis with possible aspiration pneumonia as a result of nausea and vomiting after first HD session. Nephro consulted to continue HD while hospitalized. (4) Admitted to intensive care unit: (5) Aspiration pneumonia: Unasyn changed to Vanc ans ceftriaxone. Extubated and CXR removed and she is doing well except for some persistent altered mental status. Cont supportive care in ICU. (6) Acute UTI: Klebsiella. Cont abx (7) Pneumothorax on right: chest tube removed and breathing well. (8) Sepsis with acute hypoxic respiratory failure: 2/2 pneumonia. Resuscitated and breathing independently with supplemental oxygen after extubation this morning and subsequent chest tube removal. (9) Metabolic acidosis: Management per Neohrology (10) Morbid obesity: (11) DM type 2 (diabetes mellitus, type 2): Cont insulin per ICU protocol. Recent A1C of 4.3 reflects good control. (12) DVT prophylaxis: heparin Full Code Dispo-cont ICU care. Will assess functional status when she is extubated and out of the ICU regarding a plan for discharge. Margo Guillen DO [employer] Hospitalist Admission and Anticipated Discharge Date Admission Date: November 10, 2019 Subjective Extubated this morning successfully with chest tube also removed. She is requiring supplemental oxygen but is not in respiratory distress. She is lethargic and able to open her eyes briefly when I asked questions several times, but only to say she is doing ok. No apparent pain, but i cannot get her to answer orientation questions. Multiple normal BMs in the last few hours per nurse. She was on tube feeds, but is NPO until speech can formally evaluate her in the morning. Review of Systems Review of Systems: Unobtainable due to cognitive status Physical Exam Physical Exam: CONSTITUTIONAL: obese, vitals as above, lethargic EYES: eual and round pupils bilaterally, normal conjunctivae, no scleral icterus ENT: external ear and nose normal RESPIRATORY: clear to auscultation bilaterally, no crackles, rales or wheezes, normal respiratory effort--somewhat limited exam 2/2 body habitus and patient not able to clearly follow instructions and breath deeply when asked. CARDIOVASCULAR: regular rate and rhythm, S1 and 2 heard without murmurs, gallops or rubs, no peripheral edema CHEST: tunneled HD catheter GASTROINTESTINAL: soft, nontender, nondistended, protuberant MUSCULOSKELETAL: lethargic and unable to follow instructions, generalized weakness noted. Not moving around the bed independently yet. SKIN: warm and dry NEUROLOGIC: open eyes spontaneously, lethargic, ?confusion as she is not responding to questions or following instructions. Results & Data Results & Data ([facility]) Vital Signs (Past 12 Hours) Vital Signs Temp Pulse Pulse Resp BP Pulse Ox 11/13/19 09:06 37.3 C 78 17 134/54 L 94 11/13/19 09:00 80 20 91 11/13/19 08:30 81 16 93 11/13/19 08:03 80 131/67 93 11/13/19 08:00 78 95 11/13/19 07:58 78 18 97 11/13/19 07:40 85 18 94 11/13/19 07:30 80 95 11/13/19 07:03 70 131/55 L 95 11/13/19 07:00 70 95 11/13/19 06:45 82 96 11/13/19 06:06 78 17 95 11/13/19 06:00 77 20 132/64 92 11/13/19 05:30 79 20 92 11/13/19 05:00 77 20 117/52 L 94 11/13/19 04:50 72 20 93 11/13/19 04:30 74 20 95 11/13/19 04:00 37.8 C H 71 20 131/68 93 11/13/19 03:30 67 20 92 11/13/19 03:00 75 20 124/54 L 94 11/13/19 02:30 75 20 93 11/13/19 02:00 80 20 130/56 L 93 11/13/19 01:30 76 20 93 Laboratory Results Short CBC 11/13/19 Range/Units 04:26 WBC 14.96 H (4.8-10.8) K/uL Hgb 9.2 L (12.0-16.0) g/dL Hct 28.6 L (37-47) % Plt Count 237 (130-400) K/uL BMP 11/13/19 04:26 Sodium 139 Potassium 3.2 L D Chloride 103 Carbon Dioxide 28 BUN 42 H Creatinine 3.37 H D Glucose 126 H Calcium 7.8 L Liver Function 11/13/19 Range/Units 04:26 Total Bilirubin 0.3 (0.2-1) mg/dl AST 20 (15-37) U/L ALT 49 (12-78) U/L Alkaline Phosphatase 381 H (45-117) U/L Albumin 2.7 L (3.4-5.0) gm/dl Medications Administered Current Inpatient Medications Albuterol (Albuterol 0.083% Nebu Soln 3 Ml Vial) 2.5 mg NEB Q6R PRN PRN Reason: Wheezing Stop: 12/10/19 22:44 Last Admin: 11/11/19 12:42 Dose: 2.5 mg Documented by: Amlodipine Besylate (Amlodipine Besylate 5 Mg Tab) 5 mg PO QAM [facility] Stop: 12/12/19 09:59 Last Admin: 11/13/19 07:39 Dose: 5 mg Documented by: Carbidopa/Levodopa (Carbidopa/Levodopa 25/100mg Tab) 1 tab PO TIDM [facility] Stop: 12/12/19 16:59 Last Admin: 11/13/19 12:18 Dose: Not Given Documented by: Dextrose (Dextrose 50% 50 Ml Syringe) 25 - 50 ml IV UD PRN; Protocol PRN Reason: Hypoglycemia Protocol Stop: 12/11/19 00:22 Enteral Nutritional Formula (Novasource Renal 2.0 Ruben 1000ml Bag) 1,000 ml OG DAILY@0900 [facility]; Protocol Stop: 12/11/19 11:44 Last Admin: 11/13/19 07:40 Dose: Not Given Documented by: Glucagon (Glucagon For Inj 1 Mg Vial) 1 mg SQ UD PRN; Protocol PRN Reason: Hypoglycemia Protocol Stop: 12/11/19 00:22 Glucose (Glucose 10 Tabs/Tube) 4 - 8 tabs PO UD PRN; Protocol PRN Reason: Hypoglycemia Protocol Stop: 12/11/19 00:22 Glucose (Glucose 40% Gel 15 Gm Tube) 15 - 30 gm PO UD PRN; Protocol PRN Reason: Hypoglycemia Protocol Stop: 12/11/19 00:22 Heparin Sodium (Porcine) (Heparin Sod 5,000 Unit/0.5 Ml Vial) 5,000 units SQ Q12 [facility] Stop: 12/11/19 20:59 Last Admin: 11/13/19 07:39 Dose: 5,000 units Documented by: Hydralazine HCl (Hydralazine Hcl 25 Mg Tab) 25 mg OG TID [facility] Stop: 12/10/19 22:44 Last Admin: 11/13/19 07:39 Dose: 25 mg Documented by: Promethazine HCl 12.5 mg/ (Sodium Chloride) 50.5 mls @ 202 mls/hr IV Q6H PRN PRN Reason: Nausea And Vomiting Stop: 12/10/19 22:15 Levothyroxine Sodium 62.5 mcg/ (Syringe) 3.125 mls @ 2 mls/min IV DAILY@0900 [facility] Stop: 12/11/19 08:59 Last Admin: 11/13/19 08:49 Dose: 2 mls/min Documented by: Famotidine 20 mg/ Syringe 5 mls @ 2.5 mls/min IV QAM [facility] Stop: 12/12/19 08:59 Last Admin: 11/13/19 07:58 Dose: 2.5 mls/min Documented by: Ceftriaxone Sodium 2,000 mg/ (Dextrose) 70 mls @ 100 mls/hr IV DAILY [facility]; Protocol Stop: 11/19/19 09:29 Last Infusion: 11/13/19 08:42 Dose: Infused Documented by: Sodium Chloride (Nss 1000ml) 1,000 mls @ 0 mls/hr IV .Q0M PRN PRN Reason: For Hemodialysis Use ONLY Stop: 11/13/19 13:53 Insulin Aspart (Insulin Aspart 100 Units/Ml 3 Ml Pen) 0 units SC Q6 [facility] Stop: 12/11/19 00:29 Last Admin: 11/13/19 05:33 Dose: Not Given Documented by: Isosorbide Mononitrate (Isosorbide [place] Extended Rel 30 Mg Tabcr) 30 mg PO DAILY [facility] Stop: 12/11/19 08:59 Last Admin: 11/12/19 10:26 Dose: Not Given Documented by: Miscellaneous (Carbohydrates For Hypoglycemia ) 15 - 30 gm PO UD PRN PRN Reason: Hypoglycemia Protocol Stop: 12/11/19 00:22 Pramipexole Dihydrochloride (Pramipexole Dihydrochlo 0.25 Mg Tab) 0.25 mg PO HS [facility] Stop: 12/12/19 20:59 Last Admin: 11/12/19 20:41 Dose: 0.25 mg Documented by: Pravastatin Sodium (Pravastatin Sod 40 Mg Tab) 40 mg NG HS [facility] Stop: 12/11/19 20:59 Last Admin: 11/12/19 20:41 Dose: 40 mg Documented by: Venlafaxine HCl (Venlafaxine Hcl 37.5 Mg Tab) 37.5 mg PO BID [facility] Stop: 12/11/19 20:59 Last Admin: 11/13/19 07:39 Dose: 37.5 mg Documented by: (1) Sepsis with acute hypoxic respiratory failure Sepsis type: sepsis due to unspecified organism Severe sepsis shock status: without septic shock Qualified Code(s): A41.9 - Sepsis, unspecified organism; R65.20 - Severe sepsis without septic shock; J96.01 - Acute respiratory failure with hypoxia (2) Aspiration pneumonia Aspiration pneumonia type: due to vomit Laterality: bilateral Lung location: lower lobe of lung Qualified Code(s): J69.0 - Pneumonitis due to inhalation of food and vomit
[2019-11-13] MEDS ORDERED: CALCIUM GLUCONATE 10% 1,000 MG in SODIUM CHLORIDE 0.9% 50 ML IV STA (13:20)
[2019-11-13 13:58] LABS: Mean Corpuscular Hgb Conc 31.4 g/dL (32-36)
[2019-11-13 14:12] LABS: Basophilic Stippling 1+; Basophils # (auto) 0.05 K/uL (0-0.2); Basophils % (auto) 0.3 %; Eosinophils # (auto) 0.38 K/uL (0-0.5); Eosinophils % (auto) 2.3 %; Hemoglobin 8.8 g/dL (12.0-16.0); Hypochromasia Present; Immature Granulocytes # (auto) 1.02 K/uL (0.00-0.02); Immature Granulocytes % (auto) 6.2 %; Lymphocytes # (auto) 1.57 K/uL (1.2-3.4); Lymphocytes % (auto) 9.5 %; Mean Corpuscular Hemoglobin 27.8 pg (25-34); Mean Corpuscular Volume 88.6 fL (80-100); Mean Platelet Volume 11.6 fL (7.4-10.4); Monocytes # (auto) 2.12 K/uL (0.11-0.59); Monocytes % (auto) 12.8 %; Neutrophils # (auto) 11.44 K/uL (1.4-6.5); Neutrophils % (auto) 68.9 %; Platelet Count 247 K/uL (130-400); Platelet Estimate Normal (Normal); RDW Coefficient of Variation 15.6 % (11.5-14.5); RDW Standard Deviation 50.6 fL (36.4-46.3); Red Blood Count 3.16 M/uL (4.2-5.4); White Blood Count 16.58 K/uL (4.8-10.8)
[2019-11-13 14:31] LABS: Fibrinogen 597 mg/dl (184-400); Prothrombin Time 10.8 Seconds (9.0-12.0)
--- NOTE | 2019-11-13 15:07 | Communication Note ---
Date of Service: November 13, 2019 Critical CARE addendum. Called earlier back to bedside due to the patient soaking through her dressing where the chest tube was removed. The dressing was taken down. There was some oozing emanating from the previous pleurotomy site. Two 3-0 silk sutures were placed and the dressing was replaced. Was called back about an hour later due to persistent bleeding. The blue dressing was again taken down. When examined, the incision appeared dry. Coagulation panels were checked at that point time. INR and platelet count as well as fibrinogen were all normal. Pressure was held and hemostasis appears to have been achieved at this point time. Sutures will need to be removed in 3 to 5 days. Additional critical care time: 40 minutes Coding Level of Care Code Critical Care ea addt'l 30 min Time Spent (min) 40
--- NOTE | 2019-11-13 17:46 | Dialysis Progress Note ---
Date of Service November 13, 2019 Assessment & Plan (1) AMS (altered mental status): patient has had frequent admissions with this, most recently late last month. DDX includes toxic /metabolic encephalopathy ( lyrica adjustment recommended last month had apparently not been implemented after d/c; and still with polypharmacy), aspiration pneumonia, stroke, DDS. continue workup, supportive care, and monitoring (2) Dialysis disequilibrium syndrome: clinical picture may be consistent with this > she has risk ff in her chronic neurologic disease, her elevated BUN prior to tx, and a routine OP tx rather than a more gentle one at initiation of therapy as OP. however, not typical in that DDS usually presents early in tx, not immediately after tx as this did. -tolerated HD today for 3 hours; plan had been longer treatment but another case came up and dialysis nurse had to be called away; plan next tx on 11/14 (3) Aspiration pneumonia: on abtx and challenging intubation; may be cause of her near fever; would follow blood cxs as well (4) ESRD (end stage renal disease) on dialysis: chemistries and anemia status for dialysis acceptable; some mild volume overload but not florid>> tolerating fluid removal plan HD today with next tx -, depending on clinical course Admission and Anticipated Discharge Date Admission Date: November 10, 2019 Subjective Extubated this morning. Still not very interactive or alert. Chest tube removed. Ongoing ectopy on media monitor Review of Systems Review of Systems: Unobtainable due to reduced consciousness Physical Exam Constitutional: well developed, well nourished and + obese On aerosol mask and with occasional thick cough Eyes: + anicteric sclerae ENMT: Ears: no external ear abnormality Nose: no external nose abnormality Mouth: + dry oral mucous membranes Neck: no nuchal rigidity Respiratory: normal respiratory effort Auscultation: + diminished lung sounds Cardiovascular: Rate/Rhythm: regular rate and regular rhythm Extremities: + edema (trace BL) Gastrointestinal (Abdomen): Inspection/Auscultation: normal bowel sounds Percussion/Palpation: abdomen soft; abdomen nontender Musculoskeletal: Head/Neck/Chest: normocephalic and head atraumatic Skin: no rashes, warm and dry Neurologic: Opens eyes but does not track Results & Data ([facility] [place]) Vital Signs (Past 12 Hours) Vital Signs Temp Pulse Pulse Resp BP Pulse Ox 11/13/19 17:20 69 135/76 08/29/20 17:00 75 167/71 H 11/13/19 16:40 62 149/65 H 11/13/19 16:20 73 144/61 H 11/13/19 16:00 74 156/65 H 11/13/19 15:40 70 156/63 H 11/13/19 15:31 37.1 C 69 69 145/63 H 11/13/19 09:06 37.3 C 78 17 134/54 L 94 11/13/19 09:00 80 20 91 11/13/19 08:30 81 16 93 11/13/19 08:03 80 131/67 93 11/13/19 08:00 78 95 11/13/19 07:58 78 18 97 11/13/19 07:40 85 18 94 11/13/19 07:30 80 95 11/13/19 07:03 70 131/55 L 95 11/13/19 07:00 70 95 11/13/19 06:45 82 96 11/13/19 06:06 78 17 95 11/13/19 06:00 77 20 132/64 92 Laboratory Results 11/13/19 13:25 11/13/19 04:26 (1) AMS (altered mental status) Altered mental status type: somnolence Qualified Code(s): R40.0 - Somnolence (2) Aspiration pneumonia Aspiration pneumonia type: due to vomit Laterality: bilateral Lung location: lower lobe of lung Qualified Code(s): J69.0 - Pneumonitis due to inhalation of food and vomit
[2019-11-13] MEDS: PRAVASTATIN SOD 40 MG TAB NG SCH (19:57)
[2019-11-13] MEDS: PRAMIPEXOLE DIHYDROCHLO 0.25 MG TAB PO SCH (19:57)
[2019-11-14 04:43] LABS: Hematocrit (blood only) 30.2 % (37-47); Hemoglobin 9.3 g/dL (12.0-16.0); Mean Corpuscular Hemoglobin 28.2 pg (25-34); Mean Corpuscular Hgb Conc 30.8 g/dL (32-36); Mean Corpuscular Volume 91.5 fL (80-100); Mean Platelet Volume 11.1 fL (7.4-10.4); Platelet Count 263 K/uL (130-400); RDW Coefficient of Variation 15.6 % (11.5-14.5); RDW Standard Deviation 52.1 fL (36.4-46.3); White Blood Count 15.83 K/uL (4.8-10.8)
[2019-11-14 05:00] LABS: Albumin Level 2.9 gm/dl (3.4-5.0); Calcium 7.9 mg/dl (8.5-10.1); Creatinine Clr Calc Pharmacy 16.4 ml/min; Est GFR (African American) 15.6; Est GFR (Non-African American) 13.4; Potassium 3.4 mmol/L (3.5-5.1)
[2019-11-14 05:02] LABS: Albumin Globulin Ratio 0.7 (0.9-2); Bilirubin,Total 0.4 mg/dl (0.2-1); Globulin 4.2 gm/dl (2.5-4.0); Phosphorus 4.4 mg/dl (2.5-4.9); Total Protein 7.1 gm/dl (6.4-8.2)
[2019-11-14 05:06] LABS: Basophils # (auto) 0.07 K/uL (0-0.2); Basophils % (auto) 0.4 %; Eosinophils # (auto) 0.86 K/uL (0-0.5); Eosinophils % (auto) 5.4 %; Immature Granulocytes # (auto) 0.95 K/uL (0.00-0.02); Lymphocytes # (auto) 1.93 K/uL (1.2-3.4); Lymphocytes % (auto) 12.2 %; Monocytes # (auto) 1.94 K/uL (0.11-0.59); Monocytes % (auto) 12.3 %; Neutrophils # (auto) 10.08 K/uL (1.4-6.5); Neutrophils % (auto) 63.7 %
[2019-11-14] MEDS: INSULIN ASPART 100 UNITS/ML 3 ML PEN SC SCH ×4 (05:22→23:40)
[2019-11-14] MEDS: CARBIDOPA/LEVODOPA 25/100MG TAB PO SCH ×3 (07:49→16:42)
[2019-11-14] MEDS: VENLAFAXINE HCL 37.5 MG TAB PO SCH (07:50)
[2019-11-14] MEDS: AMLODIPINE BESYLATE 5 MG TAB PO SCH (07:50)
--- NOTE | 2019-11-14 08:33 | Critical Care Progress Note ---
Date of Service November 14, 2019 Assessment & Plan (1) Acute on chronic respiratory failure with hypoxemia: Reason Critically Ill: 74-year-old female here with a pMHx. significant for RENÉ on CPAP, Parkinson's, diastolic heart failure (EF 50-55% 2019), HTN, HLD, DM-II although last A1c 4.1, ESRD on HD, started on 11/09 through a tunneled HD catheter, presented with AMS, then vomited with concern for aspiration followed by hypoxemia which lead to intubation and who was admitted for airway and ventilator management along with management of right sided chest tube. 24-hour events: Patient extubated yesterday without difficulty. She did go on another round of dialysis with fluid removal which was tolerated well. She is remained hemodynamically stable. She is been weaned down to nasal cannula. Her chest tube was removed. She did have some bleeding which required placement of two 3-0 silk sutures. Bleeding issues appear to have resolved. Her coagulation panel was unremarkable. She remains awake but nonverbal. She tolerated BiPAP last night. Recommendations: Neuro - Patient is now awake and moving all 4 extremities but not reliably following commands. Will check MRI of the brain. She is potentially at risk for anoxic encephalopathy. We will review all of her medications and discontinue any medications which could be contributing to altered mental status. Review of her electronic medical record does reveal that this appears to be a chronic issue with the patient having had multiple prior admissions for altered mental status/metabolic encephalopathy. Cardiac - History of diastolic heart failure and hypertension: Continue antihypertensive medications (hydralazine, isosorbide, and Norvasc). Patient may benefit from an HARESH inhibitor now that she is on dialysis but will defer to nephrology. Fluid removal per nephrology with dialysis. QTc slightly prolonged and will continue to trend. Respiratory - Much better at this point time. Off ventilator and down to nasal cannula. Her cough is strong. She needs aggressive pulmonary toilet. Mental status precludes incentive spirometry. We will see if the patient can get out of bed although there are reports that she is essentially bedbound at home. Chest tube out with no evidence of recurrence of pneumothorax. Dressing appears clean dry intact. Will need sutures removed in 5 or 6 days. Continue nightly BiPAP GI - Await speech evaluation. If fails due to mental status, may require placement of nasoenteric feeding tube. RENAL/LYTES - Per nephrology: Continue hemodialysis support. Fluid removed yesterday without difficulty. Electrolytes acceptable. Acid-base status acceptable. - - No concerns at this time. ENDO - Sliding scale insulin. Continue Synthroid HEME - Mild anemia. No evidence of blood loss. No indication for transfusion. Continue to monitor. ID - Klebsiella in the urine of unclear significance. MRSA in the sputum. Discontinue Rocephin and vancomycin and replace with ceftaroline. Will ask pharmacy to dose. INTEGUMENTARY - - No concerns at this time. LINES/IV ACCESS - - PIVs intact. - left subclavian HD line DVT PROPHYLAXIS - - Heparin (2) Dialysis disequilibrium syndrome: (3) ESRD (end stage renal disease) on dialysis: (4) Admitted to intensive care unit: (5) Multifocal pneumonia: Admission and Anticipated Discharge Date Admission Date: November 10, 2019 Subjective Patient extubated. She is awake. Per nursing, she responds to yes or no questions intermittently. On my exam she is nonverbal and does not really follow commands. She is awake and tracks. Review of Systems Review of Systems: Unobtainable due to cognitive status Physical Exam Constitutional: WD/WN, vitals as above Neck: trachea midline, no thyromegaly Respiratory: normal respiratory effort, lungs clear to auscultation Cardiovascular: RRR, no murmur, no edema Gastrointestinal (Abdomen): normal bowel sounds, soft, nontender, no hepatosplenomegaly Musculoskeletal: Extremities: extremities normal to inspection Skin: no rashes, warm and dry Neurologic: Patient moves all 4 extremities spontaneously but does not follow commands. She does track with her eyes but is nonverbal. Lymphatic: no cervical lymphadenopathy Results & Data Results & Data ([facility]) Vital Signs (Past 12 Hours) Vital Signs Temp Pulse Resp BP Pulse Ox 11/14/19 06:00 69 18 97/54 L 96 11/14/19 05:30 75 20 96 11/14/19 05:00 66 18 113/54 L 97 11/14/19 04:52 53 L 16 95 11/14/19 04:30 74 19 96 11/14/19 04:00 36.9 C 68 18 109/57 L 93 11/14/19 03:30 78 21 95 11/14/19 03:00 72 19 95/53 L 96 11/14/19 02:30 67 18 95 08/30/20 02:00 84 19 102/45 L 95 11/14/19 01:34 81 20 95 11/14/19 01:30 78 18 95 11/14/19 01:00 78 16 118/61 95 11/14/19 00:30 71 15 94 11/14/19 00:00 36.8 C 77 19 126/62 95 11/13/19 23:30 75 20 96 11/13/19 23:00 75 19 117/44 L 96 11/13/19 22:30 74 20 96 11/13/19 22:22 73 19 95 11/13/19 22:00 65 18 104/71 96 11/13/19 21:30 81 13 96 11/13/19 21:00 76 22 129/44 L 95 11/13/19 20:30 78 18 93 Laboratory Results 11/14/19 04:10 11/14/19 04:10 Diagnostic Findings No new imaging Coding Level of Care Code 28199 Subseq Hosp Care Lvl 3 Diagnoses Acute on chronic respiratory failure with hypoxemia J96.21 Dialysis disequilibrium syndrome E87.8 ESRD (end stage renal disease) on dialysis N18.6; Z99.2 Admitted to intensive care unit Z78.9 Multifocal pneumonia J18.9
[2019-11-14] MEDS: FAMOTIDINE 20 MG in SYRINGE 3 ML IV SCH (09:20)
[2019-11-14] MEDS: LEVOTHYROXINE SODIUM 62.5 MCG in SYRINGE 0 ML IV SCH (09:20)
[2019-11-14] MEDS: CEFTAROLINE FOSAMIL ACETATE IV SCH ×2 (11:01→19:06)
[2019-11-14] MEDS: SODIUM CHLORIDE 0.9% IV SCH ×2 (11:01→19:06)
--- NOTE | 2019-11-14 12:58 | Nephrology Progress Note ---
Date of Service November 14, 2019 Assessment & Plan (1) AMS (altered mental status): patient has had frequent admissions with this, most recently late last month. DDX includes toxic /metabolic encephalopathy ( lyrica adjustment recommended last month had apparently not been implemented after d/c; and still with polypharmacy), aspiration pneumonia, stroke, DDS. continue workup, supportive care, and monitoring. since extubation she is aphasic, not following commands but awake (2) Dialysis disequilibrium syndrome: clinical picture may be consistent with this but has tolerated interval txs w/o issue and with improved MS > she has risk ff in her chronic neurologic disease, her elevated BUN prior to tx, and a routine OP tx rather than a more ge ntle one at initiation of therapy as OP. However, not typical in that DDS usually presents early in tx, not immediately after tx as this did. -tolerated HD yesterday for 2 hours; plan had been longer treatment but another case came up and dialysis nurse had to be called away; plan next tx on 11/14 (3) Aspiration pneumonia: on abtx and s/p challenging intubation; may be cause of her near fevers (better past 24 hr); would follow blood cxs as well (4) ESRD (end stage renal disease) on dialysis: chemistries and anemia status for dialysis acceptable; some mild volume overload but not florid>> tolerating fluid removal with tx though BP a bit soft today. anuric plan HD 11-14, depending on clinical course Will attempt to contact via Cell. Admission and Anticipated Discharge Date Admission Date: November 10, 2019 Subjective remains on 02NC; no ON events acutely; not waking up much; in hospital but not at bedside when I saw him; had swallow study and aspirated Review of Systems Review of Systems: Unobtainable due to reduced consciousness Physical Exam Constitutional: well developed, well nourished, + obese and + altered mental status (not following commands or tracking); no acute distress Eyes: + anicteric sclerae ENMT: Ears: no external ear abnormality Nose: no external nose abnormality Mouth: + dry oral mucous membranes Neck: no nuchal rigidity Respiratory: normal respiratory effort Auscultation: + diminished lung sounds Cardiovascular: Rate/Rhythm: regular rate and regular rhythm Extremities: no edema Gastrointestinal (Abdomen): Inspection/Auscultation: normal bowel sounds Percussion/Palpation: abdomen soft; abdomen nontender Musculoskeletal: Head/Neck/Chest: normocephalic and head atraumatic Skin: no rashes, warm and dry Neurologic: + obtunded Speech / Cognition: + expressive aphasia, + receptive aphasia and + abnormal cognition Results & Data ([facility]) Vital Signs (Past 12 Hours) Vital Signs Temp Pulse Resp BP Pulse Ox 11/14/19 06:00 69 18 97/54 L 96 11/14/19 05:30 75 20 96 11/14/19 05:00 66 18 113/54 L 97 11/14/19 04:52 53 L 16 95 11/14/19 04:30 74 19 96 11/14/19 04:00 36.9 C 68 18 109/57 L 93 11/14/19 03:30 78 21 95 11/14/19 03:00 72 19 95/53 L 96 11/14/19 02:30 67 18 95 11/14/19 02:00 84 19 102/45 L 95 11/14/19 01:34 81 20 95 11/14/19 01:30 78 18 95 11/14/19 01:00 78 16 118/61 95 Laboratory Results 11/14/19 04:10 11/14/19 04:10 (1) Aspiration pneumonia Aspiration pneumonia type: due to vomit Laterality: bilateral Lung location: lower lobe of lung Qualified Code(s): J69.0 - Pneumonitis due to inhalation of food and vomit (2) AMS (altered mental status) Altered mental status type: somnolence Qualified Code(s): R40.0 - Somnolence
--- NOTE | 2019-11-14 14:10 | Hospitalist Progress Note ---
Date of Service November 14, 2019 Assessment & Plan (1) Acute on chronic respiratory failure with hypoxemia: Likely related to aspiration pneumonia during episode of confusion related to initial dialysis treatment. She continues on Unasyn and has been extubated and doing well from a breathing standpoint. Chest tube also removed. Unasyn was switched to Vanc and ceftriaxone per culture results. Continues on hemodialysis to help with fluid management. Supplemental oxygen / BIPAP when needed. (2) Chronic diastolic heart failure: Chronic diastolic dysfunction with pulmonary congestion 2/2 ESRD. Torsemide held and fluid management with HD. (3) ESRD (end stage renal disease) on dialysis: Recently started dialysis with possible aspiration pneumonia as a result of nausea and vomiting after first HD session. Nephro consulted to continue HD while hospitalized. (4) Admitted to intensive care unit: (5) Aspiration pneumonia: Unasyn changed to Vanc and ceftriaxone. Extubated and CXR removed and she is doing well except for some persistent altered mental status. Cont supportive care in ICU. (6) Acute UTI: Klebsiella. Cont abx (7) Pneumothorax on right: chest tube removed and breathing well. (8) Sepsis with acute hypoxic respiratory failure: 2/2 pneumonia. Resuscitated and breathing independently with supplemental oxygen after extubation this morning and subsequent chest tube removal. (9) Metabolic acidosis: Management per Nephrology (10) Morbid obesity: (11) DM type 2 (diabetes mellitus, type 2): Cont insulin per ICU protocol. Recent A1C of 4.3 reflects good control. (12) DVT prophylaxis: heparin Full Code Dispo-cont ICU care. Will assess functional status when she is extubated and out of the ICU regarding a plan for discharge. Margo Guillen DO [facility] Hospitalist Admission and Anticipated Discharge Date Admission Date: November 10, 2019 Subjective Patient is awake, but not following commands consistently and nonverbal, ROS is limited. She is on her way to MRI. Denies pain in her chest wall or anywhere else. Reports that her breathing is improved. Review of Systems Review of Systems: All systems reviewed & are unremarkable except as noted in Subjective Physical Exam Physical Exam: CONSTITUTIONAL: obese, vitals as above, somnolent but more arousable. Not verbally responding but can shake head yes/no in response to questions. EYES: equal and round pupils bilaterally, normal conjunctivae, no scleral icterus ENT: external ear and nose normal RESPIRATORY: clear to auscultation bilaterally, no crackles, rales or wheezes, normal respiratory effort--somewhat limited exam 2/2 body habitus and patient not able to clearly follow instructions and breath deeply when asked. CARDIOVASCULAR: regular rate and rhythm, S1 and 2 heard without murmurs, gallops or rubs, no peripheral edema CHEST: tunneled HD catheter GASTROINTESTINAL: soft, nontender, nondistended, protuberant MUSCULOSKELETAL: lethargic and unable to follow instructions, generalized weakness noted. Not moving around the bed independently yet. SKIN: warm and dry NEUROLOGIC: open eyes spontaneously, confused, slow to respond and difficulty following instructions. Results & Data Results & Data ([facility]) Vital Signs (Past 12 Hours) Vital Signs Temp Pulse Resp BP Pulse Ox 11/14/19 13:30 71 15 96 11/14/19 13:14 69 16 122/50 L 96 11/14/19 13:00 73 18 96 11/14/19 12:30 68 19 96 11/14/19 12:15 36.8 C 68 24 138/44 L 97 11/14/19 12:00 75 16 97 11/14/19 11:30 71 10 L 97 11/14/19 11:14 72 17 139/45 L 97 11/14/19 11:00 74 17 96 11/14/19 10:30 76 15 97 11/14/19 10:14 76 17 129/59 L 94 11/14/19 10:00 74 16 98 11/14/19 09:30 67 16 97 11/14/19 09:14 70 17 118/53 L 89 L 11/14/19 09:00 72 22 90 11/14/19 08:30 70 14 90 11/14/19 08:14 66 17 110/56 L 88 L 11/14/19 08:00 73 14 95 11/14/19 07:30 71 17 96 11/14/19 07:15 67 19 122/57 L 98 11/14/19 07:00 71 17 98 11/14/19 06:45 88 19 97 11/14/19 06:00 69 18 97/54 L 96 11/14/19 05:30 75 20 96 11/14/19 05:00 66 18 113/54 L 97 11/14/19 04:52 53 L 16 95 11/14/19 04:30 74 19 96 11/14/19 04:00 36.9 C 68 18 109/57 L 93 11/14/19 03:30 78 21 95 11/14/19 03:00 72 19 95/53 L 96 11/14/19 02:30 67 18 95 Laboratory Results Short CBC 11/13/19 11/14/19 Range/Units 13:25 04:10 WBC 16.58 H 15.83 H (4.8-10.8) K/uL Hgb 8.8 L 9.3 L (12.0-16.0) g/dL Hct 28.0 L 30.2 L (37-47) % Plt Count 247 263 (130-400) K/uL BMP 11/14/19 04:10 Sodium 139 Potassium 3.4 L Chloride 102 Carbon Dioxide 27 BUN 29 H Creatinine 3.25 H Glucose 89 Calcium 7.9 L Liver Function 11/14/19 Range/Units 04:10 Total Bilirubin 0.4 (0.2-1) mg/dl AST 16 (15-37) U/L ALT 40 (12-78) U/L Alkaline Phosphatase 341 H (45-117) U/L Albumin 2.9 L (3.4-5.0) gm/dl Medications Administered Current Inpatient Medications Albuterol (Albuterol 0.083% Nebu Soln 3 Ml Vial) 2.5 mg NEB Q6R PRN PRN Reason: Wheezing Stop: 12/10/19 22:44 Last Admin: 11/11/19 12:42 Dose: 2.5 mg Documented by: Amlodipine Besylate (Amlodipine Besylate 5 Mg Tab) 5 mg PO QAM [facility] Stop: 12/12/19 09:59 Last Admin: 11/14/19 07:50 Dose: Not Given Documented by: Carbidopa/Levodopa (Carbidopa/Levodopa 25/100mg Tab) 1 tab PO TIDM [facility] Stop: 12/12/19 16:59 Last Admin: 11/14/19 11:03 Dose: Not Given Documented by: Dextrose (Dextrose 50% 50 Ml Syringe) 25 - 50 ml IV UD PRN; Protocol PRN Reason: Hypoglycemia Protocol Stop: 12/11/19 00:22 Glucagon (Glucagon For Inj 1 Mg Vial) 1 mg SQ UD PRN; Protocol PRN Reason: Hypoglycemia Protocol Stop: 12/11/19 00:22 Glucose (Glucose 10 Tabs/Tube) 4 - 8 tabs PO UD PRN; Protocol PRN Reason: Hypoglycemia Protocol Stop: 12/11/19 00:22 Glucose (Glucose 40% Gel 15 Gm Tube) 15 - 30 gm PO UD PRN; Protocol PRN Reason: Hypoglycemia Protocol Stop: 12/11/19 00:22 Heparin Sodium (Porcine) (Heparin Sod 5,000 Unit/0.5 Ml Vial) 5,000 units SQ Q12 [facility] Stop: 12/11/19 20:59 Last Admin: 11/13/19 07:39 Dose: 5,000 units Documented by: Hydralazine HCl (Hydralazine Hcl 25 Mg Tab) 25 mg OG TID [facility] Stop: 12/10/19 22:44 Last Admin: 11/14/19 14:02 Dose: Not Given Documented by: Promethazine HCl 12.5 mg/ (Sodium Chloride) 50.5 mls @ 202 mls/hr IV Q6H PRN PRN Reason: Nausea And Vomiting Stop: 12/10/19 22:15 Levothyroxine Sodium 62.5 mcg/ (Syringe) 3.125 mls @ 1.563 mls/min IV DAILY@0900 [facility] Stop: 12/11/19 08:59 Last Admin: 11/14/19 09:20 Dose: 2 mls/min Documented by: Famotidine 20 mg/ Syringe 5 mls @ 2.5 mls/min IV QAM [facility] Stop: 12/12/19 08:59 Last Admin: 11/14/19 09:20 Dose: 2.5 mls/min Documented by: Ceftaroline Fosamil 200 mg/ (Sodium Chloride) 56.6667 mls @ 113.333 mls/hr IV Q12@0800,1999 [facility]; Protocol Stop: 11/21/19 09:59 Last Infusion: 11/14/19 11:37 Dose: Infused Documented by: Insulin Aspart (Insulin Aspart 100 Units/Ml 3 Ml Pen) 0 units SC Q6 [facility] Stop: 12/11/19 00:29 Last Admin: 11/14/19 11:03 Dose: Not Given Documented by: Isosorbide Mononitrate (Isosorbide [place] Extended Rel 30 Mg Tabcr) 30 mg PO DAILY [facility] Stop: 12/11/19 08:59 Last Admin: 08/28/20 10:26 Dose: Not Given Documented by: Miscellaneous (Carbohydrates For Hypoglycemia ) 15 - 30 gm PO UD PRN PRN Reason: Hypoglycemia Protocol Stop: 12/11/19 00:22 Pramipexole Dihydrochloride (Pramipexole Dihydrochlo 0.25 Mg Tab) 0.25 mg PO HS [facility] Stop: 12/12/19 20:59 Last Admin: 11/13/19 19:57 Dose: Not Given Documented by: Pravastatin Sodium (Pravastatin Sod 40 Mg Tab) 40 mg NG HS [facility] Stop: 12/11/19 20:59 Last Admin: 11/13/19 19:57 Dose: Not Given Documented by: (1) Sepsis with acute hypoxic respiratory failure Sepsis type: sepsis due to unspecified organism Severe sepsis shock status: without septic shock Qualified Code(s): A41.9 - Sepsis, unspecified organism; R65.20 - Severe sepsis without septic shock; J96.01 - Acute respiratory failure with hypoxia (2) Aspiration pneumonia Aspiration pneumonia type: due to vomit Laterality: bilateral Lung location: lower lobe of lung Qualified Code(s): J69.0 - Pneumonitis due to inhalation of food and vomit
[2019-11-14] MEDS ORDERED: GADOBUTROL 30ML VIAL IV ONE (18:49)
--- NOTE | 2019-11-14 19:01 | Magnetic Resonance Report ---
MRI OF THE BRAIN WITHOUT AND WITH IV CONTRAST CLINICAL HISTORY: encephalopathy COMPARISON STUDY: Noncontrast head CT dated 11/10/2019, MRI the brain dated 08/25/2018 TECHNIQUE: MRI of the brain was performed from the vertex to the skull base utilizing various T1 and T2 weighted sequences. Following the IV administration of 9 mL of Gadavist contrast, additional enhan spenser images were obtained. Please note, there was a contrast extravasation. Additional contrast was no t administered due to the patient's renal status. The patient is scheduled for dialysis in the [facility]. FINDINGS: Sagittal T1, axial diffusion, proton density and T2 weighted axial, coronal FLAIR, and pre and post a xial T1-weighted images were acquired. These were supplemented with post gadolinium coronal T1 weight ed images. No intra or extra-axial mass lesions are visualized. Axial diffusion-weighted images reveal a tiny focus of increased signal within the right frontal bryson ventricular white matter. Restricted water diffusion is difficult to confirm on the ADC map. There ar e the last this may represent a tiny acute/subacute infarct. There is mild ventricular dilatation which is felt to be secondary to volume loss. Proton density T2-weighted and FLAIR images reveal mild foci of increased T2 signal within the white matter, likely on a small vessel basis. There are no abnormal flow voids. There is no evidence of pathologic enhancement. There are foci of increased T2 signal within the mastoids likely infectious/inflammatory IMPRESSION: 1. Moderately motion degraded examination 2. Small focus of increased signal on diffusion-weighted images within the right frontal periventricu lar white matter, possibly representing a tiny acute/subacute infarct 3. No evidence of intracranial mass 4. Atrophic change and associated ventricular prominence ACT 112: Negative or not required by law. Electronically signed by: Maximilian Jay M.D. 11/14/2019 7:00 PM
[2019-11-14] MEDS: PRAMIPEXOLE DIHYDROCHLO 0.25 MG TAB PO SCH (19:56)
[2019-11-14] MEDS: PRAVASTATIN SOD 40 MG TAB NG SCH (19:56)
[2019-11-14] MEDS: HEPARIN SOD 5,000 UNIT/0.5 ML VIAL SQ SCH (21:02)
[2019-11-15] MEDS: INSULIN ASPART 100 UNITS/ML 3 ML PEN SC SCH ×4 (05:23→21:12)
[2019-11-15 05:59] LABS: Hematocrit (blood only) 30.2 % (37-47); Hemoglobin 9.3 g/dL (12.0-16.0); Mean Corpuscular Hemoglobin 27.8 pg (25-34); Mean Corpuscular Hgb Conc 30.8 g/dL (32-36); Mean Corpuscular Volume 90.4 fL (80-100); Mean Platelet Volume 11.5 fL (7.4-10.4); Nucleated RBC # (auto) 0.02 K/uL (0-0); Nucleated RBC % (auto) 0.1 %; Platelet Count 288 K/uL (130-400); RDW Coefficient of Variation 15.3 % (11.5-14.5); RDW Standard Deviation 50.2 fL (36.4-46.3); Red Blood Count 3.34 M/uL (4.2-5.4); White Blood Count 16.16 K/uL (4.8-10.8)
[2019-11-15 06:34] LABS: Basophils # (auto) 0.09 K/uL (0-0.2); Basophils % (auto) 0.6 %; Eosinophils # (auto) 1.11 K/uL (0-0.5); Eosinophils % (auto) 6.9 %; Immature Granulocytes # (auto) 1.18 K/uL (0.00-0.02); Immature Granulocytes % (auto) 7.3 %; Lymphocytes # (auto) 1.72 K/uL (1.2-3.4); Lymphocytes % (auto) 10.6 %; Monocytes # (auto) 1.91 K/uL (0.11-0.59); Monocytes % (auto) 11.8 %; Neutrophils # (auto) 10.15 K/uL (1.4-6.5); Neutrophils % (auto) 62.8 %; RBC Morphology Unremarkable
[2019-11-15 06:44] LABS: BUN Creatinine Ratio 9.6 (10-20); Creatinine Clr Calc Pharmacy 9.8 ml/min; Est GFR (African American) 8.7; Est GFR (Non-African American) 7.5; Magnesium 2.2 mg/dl (1.8-2.4); Phosphorus 7.1 mg/dl (2.5-4.9); Potassium 3.9 mmol/L (3.5-5.1)
[2019-11-15] MEDS: CARBIDOPA/LEVODOPA 25/100MG TAB PO SCH ×3 (07:12→17:24)
[2019-11-15] MEDS: AMLODIPINE BESYLATE 5 MG TAB PO SCH (07:14)
[2019-11-15] MEDS: CEFTAROLINE FOSAMIL ACETATE IV SCH ×2 (07:15→20:30)
[2019-11-15] MEDS: SODIUM CHLORIDE 0.9% IV SCH ×2 (07:15→20:30)
[2019-11-15] MEDS: HEPARIN SOD 5,000 UNIT/0.5 ML VIAL SQ SCH ×2 (07:16→21:04)
[2019-11-15] MEDS: FAMOTIDINE 20 MG in SYRINGE 3 ML IV SCH (07:16)
--- NOTE | 2019-11-15 07:44 | Critical Care Progress Note ---
Date of Service November 15, 2019 Assessment & Plan (1) Acute on chronic respiratory failure with hypoxemia: Reason Critically Ill: 74-year-old female here with a pMHx. significant for RENÉ on CPAP, Parkinson's, diastolic heart failure (EF 50-55% 2019), HTN, HLD, DM-II although last A1c 4.1, ESRD on HD, started on 11/09 through a tunneled HD catheter, presented with AMS, then vomited with concern for aspiration followed by hypoxemia which lead to intubation and who was admitted for airway a nd ventilator management along with management of right sided chest tube. Palliative consult placed for continued discussions surrounding goals of care Neuro: - CAM ICU negative - Patient is now awake and moving all 4 extremities but not reliably following commands. - MRI Brain demonstrating small focus of increased signal on diffusion-weighted images within the right frontal periventricular white matter, possibly representing a tiny acute/subacute infarct - multiple medications likely contributing to continued altered mental status Cardiac: - Continue hydralazine, isosorbide, and Norvasc. - QTc slightly prolonged and will continue to trend. Respiratory: - BiPAP at Night; down to Nasal Cannula 2-4L during the day; mental status precludes incentive spirometry. - Chest tube out with no evidence of recurrence of pneumothorax. Dressing appears clean dry intact. GI: - failed initial speech eval, repeat to be done today - May require placement of nasoenteric feeding tube, if failure due to mental status Renal/Lytes: - ESRD: Cr 5.26, BUN 51 - Per nephrology: hemodialysis today ENDO: - Sliding scale insulin. - Continue Synthroid HEME: - Hgb stable at 9.3 - Mild anemia. No evidence of blood loss. No indication for transfusion ID: - Klebsiella in the urine of unclear significance. MRSA in the sputum. - Continue Ceftaroline (day 06/24 of effective treatment) LINES/IV ACCESS: - PIVs intact. - left subclavian HD line DVT PROPHYLAXIS: - Heparin (2) Dialysis disequilibrium syndrome: (3) ESRD (end stage renal disease) on dialysis: (4) Multifocal pneumonia: Admission and Anticipated Discharge Date Admission Date: November 10, 2019 Supervising Physician Co-Signing Physician Notes Dr. Jimenez was resident physician during care of patient. I separately evaluated patient for nicole portions of the history and the exam. I was present during the critical portion of medical decision making, and I discussed the case with the resident. I generally agree with the findings and plan. Patient significantly improved, experienced disequilibrium syndrome and continued improvement. Subjective Patient is awake, but not following commands consistently and nonverbal; had no acute events overnight and tolerated BiPAP without difficulty. To undergo dialysis this morning. Review of Systems Review of Systems: Unobtainable due to cognitive status Physical Exam Constitutional: WD/WN, vitals as above Eyes: PERRL, conjunctivae normal, anicteric sclerae Neck: trachea midline, no thyromegaly Respiratory: normal respiratory effort; no labored breathing and no retractions Auscultation: lungs clear to auscultation bilaterally Cardiovascular: Rate/Rhythm: regular rate and regular rhythm Heart Sounds: no gallop, no murmur and no cardiac rub Vessels: normal peripheral pulses Gastrointestinal (Abdomen): normal bowel sounds, soft, nontender, no hepatosplenomegaly Musculoskeletal: Extremities: extremities normal to inspection Skin: no rashes, warm and dry Neurologic: normal touch/pain/proprioception, plantar reflexes intact bilaterally and moves all extremities Psychiatric: Orientation: alert and oriented to person; + not oriented to place and + not oriented to time Lymphatic: no cervical lymphadenopathy Results & Data Results & Data ([facility]) Vital Signs (Past 12 Hours) Vital Signs Temp Pulse Resp BP Pulse Ox 11/15/19 06:00 59 L 20 146/55 H 98 11/15/19 05:00 59 L 22 139/72 99 11/15/19 04:00 36.8 C 64 23 131/66 99 11/15/19 03:25 58 L 18 98 11/15/19 03:00 67 15 133/67 98 11/15/19 02:00 60 17 119/72 98 11/15/19 01:00 71 14 141/65 H 97 11/15/19 00:42 69 16 97 11/15/19 00:00 36.9 C 66 19 148/61 H 98 11/14/19 23:00 69 14 149/61 H 98 11/14/19 22:00 58 L 16 144/62 H 98 11/14/19 21:00 62 18 151/70 H 98 11/14/19 20:00 36.9 C 66 22 125/58 L 98 Laboratory Results 11/15/19 11/15/19 11/15/19 Range/Units 05:41 05:41 05:22 WBC 16.16 H (4.8-10.8) K/uL RBC 3.34 L (4.2-5.4) M/uL Hgb 9.3 L (12.0-16.0) g/dL Hct 30.2 L (37-47) % MCV 90.4 (80-100) fL MCH 27.8 (25-34) pg MCHC 30.8 L (32-36) g/dL RDW Std Deviation 50.2 H (36.4-46.3) fL RDW Coeff of Bhavin 15.3 H (11.5-14.5) % Plt Count 288 (130-400) K/uL MPV 11.5 H (7.4-10.4) fL Immature Gran % (Auto) 7.3 % Neut % (Auto) 62.8 % Lymph % (Auto) 10.6 % [place] % (Auto) 11.8 % Eos % (Auto) 6.9 % Baso % (Auto) 0.6 % Neut # (Auto) 10.15 H (1.4-6.5) K/uL Lymph # (Auto) 1.72 (1.2-3.4) K/uL [place] # (Auto) 1.91 H (0.11-0.59) K/uL Eos # (Auto) 1.11 H (0-0.5) K/uL Baso # (Auto) 0.09 (0-0.2) K/uL Immature Gran # (Auto) 1.18 H (0.00-0.02) K/uL Absolute Nucleated RBC 0.02 H (0-0) K/uL Nucleated RBC % (auto) 0.1 % RBC Morphology Unremarkable Sodium 141 (136-145) mmol/L Potassium 3.9 (3.5-5.1) mmol/L Chloride 104 (98-107) mmol/L Carbon Dioxide 23 (21-32) mmol/L Anion Gap 14.0 H (3-11) BUN 51 H D (7-18) mg/dl Creatinine 5.26 H* D (0.6-1.2) mg/dl Est Cr Clr Drug Dosing 9.8 ml/min Est GFR ( Amer) 8.7 Est GFR (Non-Af Amer) 7.5 BUN/Creatinine Ratio 9.6 L (10-20) Glucose 84 (70-99) mg/dl POC Glucose 85 (70-99) mg/dl Calcium 8.0 L (8.5-10.1) mg/dl Phosphorus 7.1 H D (2.5-4.9) mg/dl Magnesium 2.2 (1.8-2.4) mg/dl 11/14/19 11/14/19 11/14/19 Range/Units 23:33 18:40 11:02 WBC (4.8-10.8) K/uL RBC (4.2-5.4) M/uL Hgb (12.0-16.0) g/dL Hct (37-47) % MCV (80-100) fL MCH (25-34) pg MCHC (32-36) g/dL RDW Std Deviation (36.4-46.3) fL RDW Coeff of Bhavin (11.5-14.5) % Plt Count (130-400) K/uL MPV (7.4-10.4) fL Immature Gran % (Auto) % Neut % (Auto) % Lymph % (Auto) % [place] % (Auto) % Eos % (Auto) % Baso % (Auto) % Neut # (Auto) (1.4-6.5) K/uL Lymph # (Auto) (1.2-3.4) K/uL [place] # (Auto) (0.11-0.59) K/uL Eos # (Auto) (0-0.5) K/uL Baso # (Auto) (0-0.2) K/uL Immature Gran # (Auto) (0.00-0.02) K/uL Absolute Nucleated RBC (0-0) K/uL Nucleated RBC % (auto) % RBC Morphology Sodium (136-145) mmol/L Potassium (3.5-5.1) mmol/L Chloride (98-107) mmol/L Carbon Dioxide (21-32) mmol/L Anion Gap (3-11) BUN (7-18) mg/dl Creatinine (0.6-1.2) mg/dl Est Cr Clr Drug Dosing ml/min Est GFR ( Amer) Est GFR (Non-Af Amer) BUN/Creatinine Ratio (10-20) Glucose (70-99) mg/dl POC Glucose 80 84 97 (70-99) mg/dl Calcium (8.5-10.1) mg/dl Phosphorus (2.5-4.9) mg/dl Magnesium (1.8-2.4) mg/dl Medications Administered Current Inpatient Medications Albuterol (Albuterol 0.083% Nebu Soln 3 Ml Vial) 2.5 mg NEB Q6R PRN PRN Reason: Wheezing Stop: 12/10/19 22:44 Last Admin: 11/11/19 12:42 Dose: 2.5 mg Documented by: Amlodipine Besylate (Amlodipine Besylate 5 Mg Tab) 5 mg PO QAM [facility] Stop: 12/12/19 09:59 Last Admin: 11/15/19 07:14 Dose: Not Given Documented by: Carbidopa/Levodopa (Carbidopa/Levodopa 25/100mg Tab) 1 tab PO TIDM [facility] Stop: 12/12/19 16:59 Last Admin: 11/15/19 07:12 Dose: Not Given Documented by: Dextrose (Dextrose 50% 50 Ml Syringe) 25 - 50 ml IV UD PRN; Protocol PRN Reason: Hypoglycemia Protocol Stop: 12/11/19 00:22 Glucagon (Glucagon For Inj 1 Mg Vial) 1 mg SQ UD PRN; Protocol PRN Reason: Hypoglycemia Protocol Stop: 12/11/19 00:22 Glucose (Glucose 10 Tabs/Tube) 4 - 8 tabs PO UD PRN; Protocol PRN Reason: Hypoglycemia Protocol Stop: 12/11/19 00:22 Glucose (Glucose 40% Gel 15 Gm Tube) 15 - 30 gm PO UD PRN; Protocol PRN Reason: Hypoglycemia Protocol Stop: 12/11/19 00:22 Heparin Sodium (Porcine) (Heparin Sod 5,000 Unit/0.5 Ml Vial) 5,000 units SQ Q12 [facility] Stop: 12/11/19 20:59 Last Admin: 11/15/19 07:16 Dose: 5,000 units Documented by: Hydralazine HCl (Hydralazine Hcl 25 Mg Tab) 25 mg OG TID [facility] Stop: 12/10/19 22:44 Last Admin: 11/15/19 07:13 Dose: Not Given Documented by: Promethazine HCl 12.5 mg/ (Sodium Chloride) 50.5 mls @ 202 mls/hr IV Q6H PRN PRN Reason: Nausea And Vomiting Stop: 12/10/19 22:15 Levothyroxine Sodium 62.5 mcg/ (Syringe) 3.125 mls @ 1.563 mls/min IV DAILY@0900 [facility] Stop: 12/11/19 08:59 Last Admin: 11/14/19 09:20 Dose: 2 mls/min Documented by: Famotidine 20 mg/ Syringe 5 mls @ 2.5 mls/min IV QAM [facility] Stop: 12/12/19 08:59 Last Admin: 11/15/19 07:16 Dose: 2.5 mls/min Documented by: Ceftaroline Fosamil 200 mg/ (Sodium Chloride) 56.6667 mls @ 113.333 mls/hr IV Q12@0800,1999 [facility]; Protocol Stop: 11/21/19 09:59 Last Admin: 11/15/19 07:15 Dose: 113 mls/hr Documented by: Insulin Aspart (Insulin Aspart 100 Units/Ml 3 Ml Pen) 0 units SC Q6 [facility] Stop: 12/11/19 00:29 Last Admin: 11/15/19 05:23 Dose: Not Given Documented by: Isosorbide Mononitrate (Isosorbide [place] Extended Rel 30 Mg Tabcr) 30 mg PO DAILY [facility] Stop: 12/11/19 08:59 Last Admin: 11/12/19 10:26 Dose: Not Given Documented by: Miscellaneous (Carbohydrates For Hypoglycemia ) 15 - 30 gm PO UD PRN PRN Reason: Hypoglycemia Protocol Stop: 12/11/19 00:22 Pramipexole Dihydrochloride (Pramipexole Dihydrochlo 0.25 Mg Tab) 0.25 mg PO HS [facility] Stop: 12/12/19 20:59 Last Admin: 11/14/19 19:56 Dose: Not Given Documented by: Pravastatin Sodium (Pravastatin Sod 40 Mg Tab) 40 mg NG HS [facility] Stop: 12/11/19 20:59 Last Admin: 11/14/19 19:56 Dose: Not Given Documented by: Resident Activity Tracking Resident Involvement: Resident Care Provided Care Provided: Adult Hospital Medicine (Critical Care)
[2019-11-15] MEDS ORDERED: HEPARIN SOD (PORCINE) 1000 UNIT/ML 10 ML VIAL IV SCH (09:17)
[2019-11-15] MEDS: LEVOTHYROXINE SODIUM 62.5 MCG in SYRINGE 0 ML IV SCH (10:13)
--- NOTE | 2019-11-15 10:52 | Hospitalist Progress Note ---
Date of Service November 15, 2019 Assessment & Plan (1) Acute on chronic respiratory failure with hypoxemia: Likely related to aspiration pneumonia during episode of confusion related to initial dialysis treatment. She continues on Unasyn and has been extubated and doing well from a breathing standpoint. Chest tube also removed. Unasyn was switched to Vanc and ceftriaxone per culture results. Continues on hemodialysis to help with fluid management. Supplemental oxygen / BIPAP when needed. (2) Acute ischemic stroke: Add aspirin, switched pravastatin to Lipitor. Consulted Neurology. She has been seen by PT/OT and speech. (3) Chronic diastolic heart failure: Chronic diastolic dysfunction with pulmonary congestion 2/2 ESRD. Torsemide held and fluid management with HD. (4) ESRD (end stage renal disease) on dialysis: Recently started dialysis with possible aspiration pneumonia as a result of nausea and vomiting after first HD session. Nephro consulted to continue HD while hospitalized. (5) Aspiration pneumonia: Unasyn changed to Vanc and ceftriaxone. Extubated and chest tube removed and she is off oxygen and denies any chest pain or coughing/other respiratory symptoms at this time. Cont ceftaroline. (6) Acute UTI: Klebsiella. Cont abx (7) Pneumothorax on right: chest tube removed and breathing well. (8) Sepsis with acute hypoxic respiratory failure: 2/2 pneumonia. Resuscitated and breathing independently now. Cont supplemental oxygen as needed. (9) Metabolic acidosis: Management per Nephrology (10) Morbid obesity: (11) DM type 2 (diabetes mellitus, type 2): Cont insulin sliding scale while inpatient (12) DVT prophylaxis: heparin Full Code Dispo-transfer to PCU DO Deric Sanon Hospitalist Admission and Anticipated Discharge Date Admission Date: November 10, 2019 Subjective +improved mental status and she is more verbal today not full oriented to questioning starting to eat something for this first time today after being cleared by speech overnight MRI revealed a possible small stroke in the R frontal area. unable to fully perform neuro assessment 2/2 weakness and difficulty following instruction is at bedside and reports that her baseline movement ability is to stand and pivot but she is a max assist to stand. Denies any pain in her right lateral chest area. Reports diarrhea today that she thinks is resolved now. Review of Systems Review of Systems: Other (unable to answer all questions) Physical Exam Physical Exam: CONSTITUTIONAL: obese, vitals as above,awake and eating, today she is more verbal but still [place] and has difficulty following instructions. EYES: equal and round pupils bilaterally, she cannot/will not perform eye movements, normal conjunctivae, no scleral icterus ENT: external ear and nose normal RESPIRATORY: clear to auscultation bilaterally, no crackles, rales or wheezes, normal respiratory effort CARDIOVASCULAR: regular rate and rhythm, S1 and 2 heard without murmurs, gallops or rubs, no peripheral edema CHEST: tunneled HD catheter GASTROINTESTINAL: soft, nontender, nondistended, protuberant MUSCULOSKELETAL: requires assistance to move around the bed, general weakness is present. 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 She can only hold her left arm out in front of her, cannot hold right arm out in front, BR reflex 2/4. She has difficulty beding her knees and appears to have a limited ROM. Could not elicit a knee reflex either side. SCDs in place bilaterally. SKIN: warm and dry NEUROLOGIC: open eyes spontaneously, difficulty with orientation questions, slow to respond and difficulty following instructions. Oriented to person and place. Results & Data Results & Data ([facility]) Vital Signs (Past 12 Hours) Vital Signs Temp Pulse Resp BP Pulse Ox 11/15/19 06:00 59 L 20 146/55 H 98 11/15/19 05:00 59 L 22 139/72 99 11/15/19 04:00 36.8 C 64 23 131/66 99 11/15/19 03:25 58 L 18 98 11/15/19 03:00 67 15 133/67 98 11/15/19 02:00 60 17 119/72 98 11/15/19 01:00 71 14 141/65 H 97 11/15/19 00:42 69 16 97 11/15/19 00:00 36.9 C 66 19 148/61 H 98 11/14/19 23:00 69 14 149/61 H 98 Laboratory Results Short CBC 11/15/19 Range/Units 05:41 WBC 16.16 H (4.8-10.8) K/uL Hgb 9.3 L (12.0-16.0) g/dL Hct 30.2 L (37-47) % Plt Count 288 (130-400) K/uL BMP 11/15/19 05:41 Sodium 141 Potassium 3.9 Chloride 104 Carbon Dioxide 23 BUN 51 H D Creatinine 5.26 H* D Glucose 84 Calcium 8.0 L Diagnostic Findings MRI OF THE BRAIN WITHOUT AND WITH IV CONTRAST CLINICAL HISTORY: encephalopathy COMPARISON STUDY: Noncontrast head CT dated 11/10/2019, MRI the brain dated 08/25/2018 TECHNIQUE: MRI of the brain was performed from the vertex to the skull base utilizing various T1 and T2 weighted sequences. Following the IV administration of 9 mL of Gadavist contrast, additional enhanced images were obtained. Please note, there was a contrast extravasation. Additional contrast was not administered due to the patient's renal status. The patient is scheduled for dialysis in the morning. FINDINGS: Sagittal T1, axial diffusion, proton density and T2 weighted axial, coronal FLAIR, and pre and post axial T1-weighted images were acquired. These were supplemented with post gadolinium coronal T1 weighted images. No intra or extra-axial mass lesions are visualized. Axial diffusion-weighted images reveal a tiny focus of increased signal within the right frontal periventricular white matter. Restricted water diffusion is difficult to confirm on the ADC map. There are the last this may represent a tiny acute/subacute infarct. There is mild ventricular dilatation which is felt to be secondary to volume loss. Proton density T2-weighted and FLAIR images reveal mild foci of increased T2 signal within the white matter, likely on a small vessel basis. There are no abnormal flow voids. There is no evidence of pathologic enhancement. There are foci of increased T2 signal within the mastoids likely infectious/inflammatory IMPRESSION: 1. Moderately motion degraded examination 2. Small focus of increased signal on diffusion-weighted images within the right frontal periventricular white matter, possibly representing a tiny acute/subacute infarct 3. No evidence of intracranial mass 4. Atrophic change and associated ventricular prominence Medications Administered Current Inpatient Medications Albuterol (Albuterol 0.083% Nebu Soln 3 Ml Vial) 2.5 mg NEB Q6R PRN PRN Reason: Wheezing Stop: 12/10/19 22:44 Last Admin: 11/11/19 12:42 Dose: 2.5 mg Documented by: Amlodipine Besylate (Amlodipine Besylate 5 Mg Tab) 5 mg PO QAM [facility] Stop: 12/12/19 09:59 Last Admin: 11/15/19 07:14 Dose: Not Given Documented by: Carbidopa/Levodopa (Carbidopa/Levodopa 25/100mg Tab) 1 tab PO TIDM [facility] Stop: 12/12/19 16:59 Last Admin: 11/15/19 07:12 Dose: Not Given Documented by: Dextrose (Dextrose 50% 50 Ml Syringe) 25 - 50 ml IV UD PRN; Protocol PRN Reason: Hypoglycemia Protocol Stop: 12/11/19 00:22 Glucagon (Glucagon For Inj 1 Mg Vial) 1 mg SQ UD PRN; Protocol PRN Reason: Hypoglycemia Protocol Stop: 12/11/19 00:22 Glucose (Glucose 10 Tabs/Tube) 4 - 8 tabs PO UD PRN; Protocol PRN Reason: Hypoglycemia Protocol Stop: 12/11/19 00:22 Glucose (Glucose 40% Gel 15 Gm Tube) 15 - 30 gm PO UD PRN; Protocol PRN Reason: Hypoglycemia Protocol Stop: 12/11/19 00:22 Heparin Sodium (Porcine) (Heparin Sod 5,000 Unit/0.5 Ml Vial) 5,000 units SQ Q12 [facility] Stop: 12/11/19 20:59 Last Admin: 11/15/19 07:16 Dose: 5,000 units Documented by: Heparin Sodium (Porcine) (Heparin Sod (Porcine) 1000 Unit/Ml 10 Ml Vial) 1,000 units IV TODAY@0917 [facility] Stop: 11/15/19 16:00 Heparin Sodium (Porcine) (Heparin Sod (Porcine) 1000 Unit/Ml 10 Ml Vial) 400 units IV Q1H [facility] Stop: 11/15/19 11:31 Hydralazine HCl (Hydralazine Hcl 25 Mg Tab) 25 mg OG TID [facility] Stop: 12/10/19 22:44 Last Admin: 11/15/19 07:13 Dose: Not Given Documented by: Promethazine HCl 12.5 mg/ (Sodium Chloride) 50.5 mls @ 202 mls/hr IV Q6H PRN PRN Reason: Nausea And Vomiting Stop: 12/10/19 22:15 Levothyroxine Sodium 62.5 mcg/ (Syringe) 3.125 mls @ 1.563 mls/min IV DAILY@0900 [facility] Stop: 12/11/19 08:59 Last Admin: 11/15/19 10:13 Dose: 1.563 mls/min Documented by: Famotidine 20 mg/ Syringe 5 mls @ 2.5 mls/min IV QAM [facility] Stop: 12/12/19 08:59 Last Admin: 11/15/19 07:16 Dose: 2.5 mls/min Documented by: Ceftaroline Fosamil 200 mg/ (Sodium Chloride) 56.6667 mls @ 113.333 mls/hr IV Q12@0800,1999 [facility]; Protocol Stop: 11/21/19 23:59 Last Infusion: 11/15/19 07:51 Dose: Infused Documented by: Insulin Aspart (Insulin Aspart 100 Units/Ml 3 Ml Pen) 0 units SC Q6 [facility] Stop: 12/11/19 00:29 Last Admin: 11/15/19 05:23 Dose: Not Given Documented by: Isosorbide Mononitrate (Isosorbide [place] Extended Rel 30 Mg Tabcr) 30 mg PO DAILY [facility] Stop: 12/11/19 08:59 Last Admin: 11/12/19 10:26 Dose: Not Given Documented by: Miscellaneous (Carbohydrates For Hypoglycemia ) 15 - 30 gm PO UD PRN PRN Reason: Hypoglycemia Protocol Stop: 12/11/19 00:22 Pramipexole Dihydrochloride (Pramipexole Dihydrochlo 0.25 Mg Tab) 0.25 mg PO [facility] Stop: 12/12/19 20:59 Last Admin: 11/14/19 19:56 Dose: Not Given Documented by: Pravastatin Sodium (Pravastatin Sod 40 Mg Tab) 40 mg NG HS [facility] Stop: 12/11/19 20:59 Last Admin: 11/14/19 19:56 Dose: Not Given Documented by: (1) Sepsis with acute hypoxic respiratory failure Sepsis type: sepsis due to unspecified organism Severe sepsis shock status: without septic shock Qualified Code(s): A41.9 - Sepsis, unspecified organism; R65.20 - Severe sepsis without septic shock; J96.01 - Acute respiratory failure with hypoxia (2) Aspiration pneumonia Aspiration pneumonia type: due to vomit Laterality: bilateral Lung location: lower lobe of lung Qualified Code(s): J69.0 - Pneumonitis due to inhalation of food and vomit
[2019-11-15] MEDS: HEPARIN SOD (PORCINE) 1000 UNIT/ML 10 ML VIAL IV SCH ×2 (11:45→11:46)
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
--- NOTE | 2019-11-15 16:43 | Nephrology Progress Note ---
Date of Service November 15, 2019 Assessment & Plan (1) AMS (altered mental status): patient has had frequent admissions with this, most recently late last month. DDX includes toxic /metabolic encephalopathy ( lyrica adjustment recommended last month had apparently not been implemented after d/c; and still with polypharmacy), aspiration pneumonia, stroke, DDS. continue workup, supportive care, and monitoring. Mental status is improving. (2) Dialysis disequilibrium syndrome: clinical picture may be consistent with this but has tolerated interval txs w/o issue and with improved MS > she has risk ff in her chronic neurologic disease, her elevated BUN prior to tx, and a routine OP tx rather than a more gentle one at initiation of therapy as OP. However, not typical in that DDS usually presents early in tx, not immediately after tx as this did. -tolerating dialysis well today. She is planned for 3-1/2 hours and net UF of 2 L (3) Aspiration pneumonia: on abtx and s/p challenging intubation; may be cause of her near fevers (better past 24 hr); would follow blood cxs as well (4) ESRD (end stage renal disease) on dialysis: chemistries and anemia status for dialysis acceptable; some mild volume overload but not florid>> tolerating fluid removal with tx though BP a bit soft today. anuric Tolerated HD today. Next dialysis will be on Friday. Admission and Anticipated Discharge Date Admission Date: November 10, 2019 Subjective Patient denies any shortness of breath or pain. She was seen and examined while on dialysis. She is tolerating dialysis well today. Review of Systems Review of Systems: All systems reviewed & are unremarkable except as noted in HPI & below Physical Exam Physical Exam: General exam: Appears comfortable on oxygen by nasal cannula, no acute distress HEENT: Pupils are equal and reactive to light Neck: No JVD, neck is supple trachea is midline Respiratory system: Clear breath sounds bilaterally. Gastrointestinal: Abdomen is soft, non distended, non tender, bowel sounds are present CVS: Regular rate and rhythm. No murmurs, rubs or gallops Musculoskeletal: No joint or muscle tenderness Extremities: Non tender, no edema, peripheral pulses are present Neuro: Oriented, no tremors, no focal neurological deficits Skin: No rashes Access: Left CVC catheter Results & Data ([facility]) Vital Signs (Past 12 Hours) Vital Signs Temp Pulse Pulse Resp BP Pulse Ox 11/15/19 13:23 36.8 C 88 11/15/19 13:00 75 106/73 11/15/19 12:46 65 116/81 11/15/19 12:30 71 129/76 11/15/19 12:16 68 11/15/19 12:04 68 122/66 11/15/19 11:46 68 141/58 H 11/15/19 11:31 58 L 132/68 11/15/19 11:15 59 L 127/52 L 11/15/19 11:00 63 110/70 11/15/19 10:45 53 L 144/79 H 11/15/19 10:30 53 L 131/57 L 11/15/19 10:15 54 L 151/52 H 11/15/19 10:10 58 L 132/68 11/15/19 10:00 36.8 C 54 L 11/15/19 06:00 59 L 20 146/55 H 98 11/15/19 05:00 59 L 22 139/72 99 Laboratory Results 11/15/19 05:41 11/15/19 11/15/19 05:41 05:41 WBC 16.16 H RBC 3.34 L MCV 90.4 MCH 27.8 MCHC 30.8 L RDW Std Deviation 50.2 H RDW Coeff of Bhavin 15.3 H Plt Count 288 MPV 11.5 H Phosphorus 7.1 H D (1) AMS (altered mental status) Altered mental status type: somnolence Qualified Code(s): R40.0 - Somnolence (2) Aspiration pneumonia Aspiration pneumonia type: due to vomit Laterality: bilateral Lung location: lower lobe of lung Qualified Code(s): J69.0 - Pneumonitis due to inhalation of food and vomit
--- NOTE | 2019-11-15 17:56 | Hospitalist Progress Note ---
Date of Service November 15, 2019 Assessment & Plan (1) Acute ischemic stroke: Defer management to Sales Vendor as the patient is still in the ICU. Would consult Neurology, add aspirin, and switch pravastatin to Lipitor 40 at a minimum. She has failed speech assessment and will be undergoing a video swallow study today. She will also need PT and OT (2) Acute on chronic respiratory failure with hypoxemia: Likely related to aspiration pneumonia during episode of confusion related to initial dialysis treatment. She continues on Unasyn and has been extubated and doing well from a breathing standpoint. Chest tube also removed. Unasyn was switched to Vanc and ceftriaxone per culture results. Continues on hemodialysis to help with fluid management. Supplemental oxygen / BIPAP when needed. (3) Chronic diastolic heart failure: Chronic diastolic dysfunction with pulmonary congestion 2/2 ESRD. Torsemide held and fluid management with HD. (4) ESRD (end stage renal disease) on dialysis: Recently started dialysis with possible aspiration pneumonia as a result of nausea and vomiting after first HD session. Nephro consulted to continue HD while hospitalized. (5) Admitted to intensive care unit: (6) Aspiration pneumonia: Unasyn changed to Vanc and ceftriaxone. Extubated and CXR removed and she is doing well except for some persistent altered mental status. Cont supportive care in ICU. (7) Acute UTI: Klebsiella. Cont abx (8) Pneumothorax on right: chest tube removed and breathing well. (9) Sepsis with acute hypoxic respiratory failure: 2/2 pneumonia. Resuscitated and breathing independently with supplemental oxygen after extubation this morning and subsequent chest tube removal. (10) Metabolic acidosis: Management per Nephrology (11) Morbid obesity: (12) DM type 2 (diabetes mellitus, type 2): Cont insulin per ICU protocol. Recent A1C of 4.3 reflects good control. (13) DVT prophylaxis: heparin Full Code Dispo-cont ICU care. Will assess functional status when she is extubated and out of the ICU regarding a plan for discharge. [facility] Admission and Anticipated Discharge Date Admission Date: November 10, 2019 Results & Data Results & Data ([facility]) Vital Signs (Past 12 Hours) Vital Signs Temp Pulse Pulse Resp BP Pulse Ox 11/15/19 13:23 36.8 C 88 11/15/19 13:00 75 106/73 11/15/19 12:46 65 116/81 11/15/19 12:30 71 129/76 11/15/19 12:16 68 11/15/19 12:04 68 122/66 11/15/19 11:46 68 141/58 H 11/15/19 11:31 58 L 132/68 11/15/19 11:15 59 L 127/52 L 11/15/19 11:00 63 110/70 11/15/19 10:45 53 L 144/79 H 11/15/19 10:30 53 L 131/57 L 11/15/19 10:15 54 L 151/52 H 11/15/19 10:10 58 L 132/68 11/15/19 10:00 36.8 C 54 L 11/15/19 06:00 59 L 20 146/55 H 98 (1) Aspiration pneumonia Aspiration pneumonia type: due to vomit Laterality: bilateral Lung location: lower lobe of lung Qualified Code(s): J69.0 - Pneumonitis due to inhalation of food and vomit (2) Sepsis with acute hypoxic respiratory failure Sepsis type: sepsis due to unspecified organism Severe sepsis shock status: without septic shock Qualified Code(s): A41.9 - Sepsis, unspecified organism; R65.20 - Severe sepsis without septic shock; J96.01 - Acute respiratory failure with hypoxia
[2019-11-15] MEDS: ASPIRIN 81 MG ECTAB PO SCH (20:54)
[2019-11-15] MEDS: PRAMIPEXOLE DIHYDROCHLO 0.25 MG TAB PO SCH (20:54)
[2019-11-15] MEDS ORDERED: Nursing to Pharmacy Communication SCH (21:00)
[2019-11-16 06:42] LABS: Hematocrit (blood only) 30.8 % (37-47); Hemoglobin 9.6 g/dL (12.0-16.0); Mean Corpuscular Hemoglobin 28.2 pg (25-34); Mean Corpuscular Hgb Conc 31.2 g/dL (32-36); Mean Corpuscular Volume 90.6 fL (80-100); Mean Platelet Volume 11.1 fL (7.4-10.4); Platelet Count 326 K/uL (130-400); RDW Coefficient of Variation 15.6 % (11.5-14.5); White Blood Count 20.02 K/uL (4.8-10.8)
[2019-11-16 07:18] LABS: BUN Creatinine Ratio 8.2 (10-20); Calcium 8.1 mg/dl (8.5-10.1); Creatinine Clr Calc Pharmacy 9.9 ml/min; Est GFR (African American) 8.9; Est GFR (Non-African American) 7.7; Magnesium 2.3 mg/dl (1.8-2.4); Potassium 3.6 mmol/L (3.5-5.1)
[2019-11-16] MEDS ORDERED: FERROUS SULFATE 325 MG TAB PO SCH (09:00)
[2019-11-16] MEDS: ASCORBIC ACID 500 MG TAB PO SCH (09:02)
[2019-11-16] MEDS: CYANOCOBALAMIN 500 MCG TABLET (VITAMIN B-12) PO SCH (09:03)
[2019-11-16] MEDS: CHOLECALCIFEROL 1,000 UNITS 25 MCG TAB PO SCH (09:03)
[2019-11-16] MEDS: VENLAFAXINE HCL XR 75 MG CAPXR PO SCH (09:03)
[2019-11-16] MEDS: ATORVASTATIN 40 MG TAB PO SCH (09:04)
[2019-11-16] MEDS: AMLODIPINE BESYLATE 5 MG TAB PO SCH (09:05)
[2019-11-16] MEDS: CALCIUM ACETATE 667 MG CAP/TAB PO SCH ×3 (09:05→17:52)
[2019-11-16] MEDS: FERROUS SULFATE 325 MG TAB PO SCH (09:06)
[2019-11-16] MEDS: CARBIDOPA/LEVODOPA 25/100MG TAB PO SCH ×3 (09:06→17:52)
[2019-11-16] MEDS: HEPARIN SOD 5,000 UNIT/0.5 ML VIAL SQ SCH ×2 (09:07→20:44)
[2019-11-16] MEDS: LEVOTHYROXINE SODIUM 62.5 MCG in SYRINGE 0 ML IV SCH (09:07)
[2019-11-16] MEDS: ASPIRIN 81 MG ECTAB PO SCH (09:08)
[2019-11-16] MEDS: INSULIN ASPART 100 UNITS/ML 3 ML PEN SC SCH ×4 (09:15→20:45)
--- NOTE | 2019-11-16 09:26 | Billing Data ---
Date of Service November 15, 2019 Coding Level of Care Code 40675 Subseq Hosp Care Lvl 2
[2019-11-16] MEDS: CEFTAROLINE FOSAMIL ACETATE IV SCH ×2 (09:29→20:44)
[2019-11-16] MEDS: SODIUM CHLORIDE 0.9% IV SCH ×2 (09:29→20:44)
--- NOTE | 2019-11-16 10:53 | Hospitalist Progress Note ---
Date of Service November 16, 2019 Assessment & Plan (1) Acute on chronic respiratory failure with hypoxemia: Likely related to aspiration pneumonia during episode of confusion related to initial dialysis treatment. She continues on Unasyn and has been extubated and doing well from a breathing standpoint. Chest tube also removed. Ceftaroline continued. WBC increased today, however, she appears clinically improved. Lungs are clear on exam. She is afebrile. CXR in am. Continues on hemodialysis to help with fluid management. Supplemental oxygen / BIPAP when needed. (2) Acute ischemic stroke: Add aspirin, switched pravastatin to Lipitor. Consulted Neurology. She has been seen by PT/OT and speech. (3) Chronic diastolic heart failure: Chronic diastolic dysfunction with pulmonary congestion 2/2 ESRD. Torsemide held and fluid management with HD. (4) ESRD (end stage renal disease) on dialysis: Recently started dialysis with possible aspiration pneumonia as a result of nausea and vomiting after first HD session. Nephro consulted to continue HD while hospitalized. (5) Aspiration pneumonia: off oxygen, Cont ceftaroline. CXR in am to investigate leukocytosis. (6) Acute UTI: Klebsiella. Cont abx (7) Pneumothorax on right: chest tube removed and breathing well. (8) Sepsis with acute hypoxic respiratory failure: 2/2 pneumonia. Resuscitated and breathing independently now. Cont supplemental oxygen as needed. (9) Metabolic acidosis: Management per Nephrology (10) Morbid obesity: (11) DM type 2 (diabetes mellitus, type 2): Cont insulin sliding scale while inpatient (12) Leukocytosis: per workup above. (13) DVT prophylaxis: heparin Full Code Dispo-cont PCU monitoring. refuses DNR status and refuses SNF. OK with [facility] is she is approved. Margo Guillen DO [facility] Hospitalist Admission and Anticipated Discharge Date Admission Date: November 10, 2019 Subjective mental status continues to improve today unable to follow instructions to perform EOM towards the right side Neuro evaluated patient in setting of recent stroke The patient is eating more today She denies pain or SOB Did not get out of bed today per her report. Review of Systems Review of Systems: All systems reviewed & are unremarkable except as noted in Subjective Physical Exam Physical Exam: CONSTITUTIONAL: obese, vitals as above,awake and eating, today she is more awake and alert. Hearing aids are in place and conversation is easier. EYES: equal and round pupils bilaterally, she cannot/will not perform eye movements, normal conjunctivae, no scleral icterus RESPIRATORY: clear to auscultation bilaterally, no crackles, rales or wheezes, normal respiratory effort CARDIOVASCULAR: regular rate and rhythm, S1 and 2 heard without murmurs, gallops or rubs, no peripheral edema CHEST: tunneled HD catheter GASTROINTESTINAL: soft, nontender, nondistended, protuberant MUSCULOSKELETAL: requires assistance to move around the bed, general weakness is present. Dulite Machine Bluer strength is intact bilaterally. She can flex both arms forward in front of her. She has difficulty bending her knees and appears to have a limited ROM. Could not elicit a knee reflex either side. SCDs in place bilaterally. SKIN: warm and dry NEUROLOGIC: open eyes spontaneously, oriented today to person place and year. Doesn't know the date. Results & Data Results & Data ([facility]) Vital Signs (Past 12 Hours) Vital Signs Temp Pulse Pulse Pulse Resp BP Pulse Ox 11/16/19 08:05 37.1 C 67 19 120/55 L 95 11/16/19 04:32 37.3 C 62 18 109/56 L 93 11/15/19 23:49 36.7 C 62 19 121/63 98 11/15/19 23:45 75 22 95 Laboratory Results Short CBC 11/16/19 Range/Units 06:14 WBC 20.02 H (4.8-10.8) K/uL Hgb 9.6 L (12.0-16.0) g/dL Hct 30.8 L (37-47) % Plt Count 326 (130-400) K/uL BMP 11/16/19 06:14 Sodium 138 Potassium 3.6 Chloride 101 Carbon Dioxide 24 BUN 42 H Creatinine 5.16 H* Glucose 98 Calcium 8.1 L Medications Administered Current Inpatient Medications Albuterol (Albuterol 0.083% Nebu Soln 3 Ml Vial) 2.5 mg NEB Q6R PRN PRN Reason: Wheezing Stop: 12/10/19 22:44 Last Admin: 11/11/19 12:42 Dose: 2.5 mg Documented by: Amlodipine Besylate (Amlodipine Besylate 5 Mg Tab) 5 mg PO QAM [facility] Stop: 12/12/19 09:59 Last Admin: 11/16/19 09:05 Dose: 5 mg Documented by: Ascorbic Acid (Ascorbic Acid 500 Mg Tab) 500 mg PO DAILY [facility] Stop: 12/16/19 08:59 Last Admin: 11/16/19 09:02 Dose: 500 mg Documented by: Aspirin (Aspirin 81 Mg Ectab) 81 mg PO DAILY [facility] Stop: 12/15/19 18:18 Last Admin: 11/16/19 09:08 Dose: 81 mg Documented by: Atorvastatin Calcium (Atorvastatin 40 Mg Tab) 80 mg PO QAM [facility] Stop: 12/16/19 08:59 Last Admin: 11/16/19 09:04 Dose: 80 mg Documented by: Calcium Acetate (Calcium Acetate 667 Mg Cap/Tab) 667 mg PO TIDM [facility] Stop: 12/16/19 07:59 Last Admin: 11/16/19 09:05 Dose: 667 mg Documented by: Carbidopa/Levodopa (Carbidopa/Levodopa 25/100mg Tab) 1 tab PO TIDM [facility] Stop: 12/12/19 16:59 Last Admin: 11/16/19 09:06 Dose: 1 tab Documented by: Cyanocobalamin (Cyanocobalamin 500 Mcg Tablet (Vitamin B-12)) 1,000 mcg PO QAM [facility] Stop: 12/16/19 08:59 Last Admin: 11/16/19 09:03 Dose: 1,000 mcg Documented by: Dextrose (Dextrose 50% 50 Ml Syringe) 25 - 50 ml IV UD PRN; Protocol PRN Reason: Hypoglycemia Protocol Stop: 12/11/19 00:22 Ferrous Sulfate (Ferrous Sulfate 325 Mg Tab) 325 mg PO DAILY [facility] Stop: 12/16/19 08:59 Last Admin: 11/16/19 09:06 Dose: 325 mg Documented by: Glucagon (Glucagon For Inj 1 Mg Vial) 1 mg SQ UD PRN; Protocol PRN Reason: Hypoglycemia Protocol Stop: 12/11/19 00:22 Glucose (Glucose 10 Tabs/Tube) 4 - 8 tabs PO UD PRN; Protocol PRN Reason: Hypoglycemia Protocol Stop: 12/11/19 00:22 Glucose (Glucose 40% Gel 15 Gm Tube) 15 - 30 gm PO UD PRN; Protocol PRN Reason: Hypoglycemia Protocol Stop: 12/11/19 00:22 Heparin Sodium (Porcine) (Heparin Sod 5,000 Unit/0.5 Ml Vial) 5,000 units SQ Q12 [facility] Stop: 12/11/19 20:59 Last Admin: 11/16/19 09:07 Dose: 5,000 units Documented by: Promethazine HCl 12.5 mg/ (Sodium Chloride) 50.5 mls @ 202 mls/hr IV Q6H PRN PRN Reason: Nausea And Vomiting Stop: 12/10/19 22:15 Levothyroxine Sodium 62.5 mcg/ (Syringe) 3.125 mls @ 1.563 mls/min IV DAILY@0900 [facility] Stop: 12/11/19 08:59 Last Admin: 11/16/19 09:07 Dose: 1.563 mls/min Documented by: Ceftaroline Fosamil 200 mg/ (Sodium Chloride) 56.6667 mls @ 113.333 mls/hr IV Q12@0800,1999 [facility]; Protocol Stop: 11/21/19 23:59 Last Admin: 11/16/19 09:29 Dose: 113.3 mls/hr Documented by: Insulin Aspart (Insulin Aspart 100 Units/Ml 3 Ml Pen) 0 units SC ACHS [facility] Stop: 12/15/19 20:59 Last Admin: 11/16/19 09:15 Dose: Not Given Documented by: Isosorbide Mononitrate (Isosorbide Rapides Extended Rel 30 Mg Tabcr) 30 mg PO DAILY [facility] Stop: 12/11/19 08:59 Last Admin: 11/12/19 10:26 Dose: Not Given Documented by: Miscellaneous (Carbohydrates For Hypoglycemia ) 15 - 30 gm PO UD PRN PRN Reason: Hypoglycemia Protocol Stop: 12/11/19 00:22 Pramipexole Dihydrochloride (Pramipexole Dihydrochlo 0.25 Mg Tab) 0.25 mg PO HS [facility] Stop: 12/12/19 20:59 Last Admin: 11/15/19 20:54 Dose: 0.25 mg Documented by: Venlafaxine HCl (Venlafaxine Hcl Xr 75 Mg Capxr) 75 mg PO QAM [facility] Stop: 12/16/19 08:59 Last Admin: 11/16/19 09:03 Dose: 75 mg Documented by: Vitamin D (Cholecalciferol 1,000 Units 25 Mcg Tab) 5,000 units PO DAILY [facility] Stop: 12/16/19 08:59 Last Admin: 11/16/19 09:03 Dose: 5,000 units Documented by: (1) Sepsis with acute hypoxic respiratory failure Sepsis type: sepsis due to unspecified organism Severe sepsis shock status: without septic shock Qualified Code(s): A41.9 - Sepsis, unspecified organism; R65.20 - Severe sepsis without septic shock; J96.01 - Acute respiratory failure with hypoxia (2) Aspiration pneumonia Aspiration pneumonia type: due to vomit Laterality: bilateral Lung location: lower lobe of lung Qualified Code(s): J69.0 - Pneumonitis due to inhalation of food and vomit
--- NOTE | 2019-11-16 12:05 | Nephrology Progress Note ---
Date of Service November 16, 2019 Assessment & Plan (1) AMS (altered mental status): Likely metabolic encephalopathy. There was also question of possible dialysis disequilibrium syndrome. Patient was also noted to have CVA on imaging. Mental status is improving. Will continue to dialyze with low blood flow (2) Aspiration pneumonia: on abtx and s/p challenging intubation; patient continues to have leukocytosis. Continue ceftaroline renally dosed (3) ESRD (end stage renal disease) on dialysis: chemistries and anemia status for dialysis acceptable; some mild volume overload but not florid>> tolerating fluid removal with tx though BP a bit soft today. anuric Tolerated HD yesterday. Next dialysis will be on Friday. Admission and Anticipated Discharge Date Admission Date: November 10, 2019 Subjective Patient is more awake today. She denied any shortness of breath or pain. She t olerated dialysis well yesterday. She has leukocytosis this morning. Review of Systems Review of Systems: All systems reviewed & are unremarkable except as noted in HPI & below Physical Exam Physical Exam: General exam: Appears comfortable, no acute distress HEENT: Pupils are equal and reactive to light Neck: No JVD, neck is supple trachea is midline Respiratory system: Clear breath sounds bilaterally. Gastrointestinal: Abdomen is soft, non distended, non tender, bowel sounds are present CVS: Regular rate and rhythm. No murmurs, rubs or gallops Musculoskeletal: No joint or muscle tenderness Extremities: Non tender, no edema, peripheral pulses are present Neuro: Oriented, no tremors, no focal neurological deficits Skin: No rashes Results & Data ([facility]) Vital Signs (Past 12 Hours) Vital Signs Temp Pulse Pulse Pulse Resp BP Pulse Ox 11/16/19 11:03 37.0 C 63 17 145/72 H 98 11/16/19 08:05 37.1 C 67 19 120/55 L 95 11/16/19 08:00 59 L 11/16/19 04:32 37.3 C 62 18 109/56 L 93 Laboratory Results 11/16/19 06:14 11/16/19 06:14 WBC 20.02 H RBC 3.40 L MCV 90.6 MCH 28.2 MCHC 31.2 L RDW Std Deviation 50.0 H RDW Coeff of Bhavin 15.6 H Plt Count 326 MPV 11.1 H (1) AMS (altered mental status) Altered mental status type: somnolence Qualified Code(s): R40.0 - Somnolence (2) Aspiration pneumonia Aspiration pneumonia type: due to vomit Laterality: bilateral Lung location: lower lobe of lung Qualified Code(s): J69.0 - Pneumonitis due to inhalation of food and vomit
--- NOTE | 2019-11-16 19:28 | Consultation Report ---
DATE OF CONSULTATION: 11/16/2019 REASON FOR CONSULTATION: Lacunar infarction on MRI brain. HISTORY OF PRESENT ILLNESS: The patient is a 74-year-old presumed right-handed female who I know from the outpatient, who has Parkinson disease. On this background, the patient was admitted to our facility on 11/10/2019 for respiratory distress and intubation. The history is obtained from the chart as the patient is unable to give history. Her medical history is significant for congestive heart failure, chronic left bundle branch block, hypertension, hyperlipidemia, COPD, obstructive sleep apnea - on CPAP, history of PE, post-anticoagulation, RA, Parkinson disease, Meniere disease, anxiety, type 2 diabetes, end-stage renal disease - on hemodialysis, chronic anemia, diverticulosis and traumatic subdural hematoma. She has had a recent confinement for metabolic encephalopathy attributed to worsening kidney functions and home medications. Lyrica dose was decreased on discharge. On followup in the PCP's office 2 weeks ago, the patient was noted to have worsening depression symptoms and sleeping frequently, that the family was not aware of decreased Lyrica dose on discharge and was still giving the patient the prior dose. The patient's family was educated on the new dose of Lyrica. PCP consulted psychiatry via [facility], psychiatry recommending psychotherapy, possibly adding sertraline to the patient's Effexor, discontinuing oxybutynin and meclizine. Unclear if recommendations communicated to patient and family. Last week prior to admission, the patient underwent an interventional radiology-guided tunneled hemodialysis catheter placement at [facility] in preparation for dialysis to commence this week. The patient underwent her first outpatient dialysis at [facility] on the day of admission. Altered mentation was noted at the end of the dialysis session. The patient was noted to be somnolent and hypoxic upon arrival to the ER with O2 sats in the 80% on room air. She was intubated in the Emergency Room. The intubation was difficult. O2 sats were noted to be low post-intubation and a chest x-ray revealed a large right pneumothorax with right lung collapse. A chest tube was placed and the patient was given IV Zosyn in the ER for pneumonia. Bloody ET secretions were suctioned. The patient remained intubated and sedated for several days. A CT of the head showed no acute intracranial abnormality. The patient was subsequently extubated and was moving all 4 extremities, but not reliably following commands. An MRI of the brain was performed and showed a moderately degraded study secondary to motion. A small focus of increased signal on diffusion weighted imaging in the right periventricular frontal region, most likely or possibly representing a tiny acute to subacute infarction. Atrophic changes with associated ventricular prominence. It is not known to this examiner whether the patient has a prior history of stroke. It is noted that she takes antiplatelet therapy with aspirin. PAST MEDICAL HISTORY: As above. PAST SURGICAL HISTORY: Knee surgery, carpal tunnel, sinus surgery, bilateral tubal ligation, heel surgery, right foot nerve surgery, vascular procedures. FAMILY HISTORY: Diabetes, heart disease, abdominal aortic aneurysm, myotonic dystrophy. SOCIAL HISTORY: Former smoker, no alcohol. ALLERGIES: No allergies. HOME MEDICATIONS: Pravastatin, amlodipine, Sinemet, B12, levothyroxine, melatonin, hydralazine, terazosin, bupropion, potassium, Mirapex 0.25 at bedtime, venlafaxine, Vitron-C, aspirin 81 mg, vitamin D3, isosorbide, meclizine, oxybutynin, metolazone, calcium, torsemide, betahistine and Lyrica 100 mg b.i.d. CURRENT MEDICATIONS: Ceftaroline fosamil, isosorbide, subQ heparin, amlodipine, Sinemet 25/100 three times a day, Mirapex 0.25 at bedtime, atorvastatin, vitamin D, calcium, aspirin 81, venlafaxine, B12 1000, vitamin C, iron, insulin, levothyroxine. LABORATORY DATA: White count 20, H and H 9/30, platelet count 326. BUN 42 and creatinine 5.1. Sodium 138, glucose 130, calcium 8.1, magnesium 2.3. PHYSICAL EXAMINATION: VITAL SIGNS: 119/56, 71, 16, 37.1, 94. GENERAL: The patient is awake, alert, in no distress. Eye movements are conjugate and roving. She has difficulty with hearing. She is able to state her name. She is very slow in thought. She is disoriented. She has difficulty with naming, which is not out of proportion to other tasks. She followed some simple 1-step commands. NECK: Supple. No carotid bruits. HEART: No heart murmurs. Heart is regular rate and rhythm. Multiple small ecchymosis are noted on her legs. HEENT: Head is normocephalic, atraumatic. NEUROLOGIC: Her pupils are equal and postsurgical. There was normal motility of visual anand. There is mild facial masking. There is a very fine lip tremor. Speech is nondysarthric. Although the patient had difficulty following commands, her strength appeared grossly symmetric. There was no drift. She was able to lift each leg off the bed symmetrically. She had difficulty following commands for [id number]. Her reflexes were symmetric and her toes were mute. She was not rigid and I did not appreciate any resting tremor. IMPRESSION AND PLAN: 1. This patient with multiple medical comorbidities and history of Parkinson disease and metabolic encephalopathy, had a change in mental status related to hypoxemia and possibly aspiration. Her MRI shows a possible right periventricular lacune, which is subacute. This is not an explanation for her mentation and it is not a typical location to see hypoxic ischemic changes on MRI. I would recommend a carotid ultrasound, although again this is lacunar and not likely related to large vessel disease. An echocardiogram and cardiac monitoring. I would assess her vascular risk factors, check a lipid profile. If there were no contraindications, I would consider increasing the dose of aspirin to 162 mg a day. 2. Encephalopathy, probably multifactorial related to metabolic abnormalities. There could be a component of hypoxic ischemic encephalopathy. I would recommend minimizing psychoactive medications. I would discontinue Mirapex, which often causes confusion in the elderly. You already have appeared to have discontinued meclizine and oxybutynin, which can cause confusion as well. I would monitor the patient and if she is continuing to mildly gradually improve, I would recommend no additional testing. If she does not continue to improve in terms of mentation, I would recommend doing an EEG to rule out subclinical seizures. 3. The patient has mild Parkinson disease or parkinsonism. Continue Sinemet. She looks well treated at present.
[2019-11-16] MEDS: PRAMIPEXOLE DIHYDROCHLO 0.25 MG TAB PO SCH (20:45)
[2019-11-17] MEDS: LEVOTHYROXINE SODIUM 125 MCG TABLET PO SCH (06:28)
[2019-11-17 06:45] LABS: Hematocrit (blood only) 30.4 % (37-47); Hemoglobin 9.5 g/dL (12.0-16.0); Mean Corpuscular Hemoglobin 27.9 pg (25-34); Mean Corpuscular Hgb Conc 31.3 g/dL (32-36); Mean Corpuscular Volume 89.1 fL (80-100); Mean Platelet Volume 10.6 fL (7.4-10.4); Platelet Count 333 K/uL (130-400); RDW Coefficient of Variation 15.9 % (11.5-14.5); RDW Standard Deviation 49.8 fL (36.4-46.3); Red Blood Count 3.41 M/uL (4.2-5.4); White Blood Count 19.74 K/uL (4.8-10.8)
--- NOTE | 2019-11-17 06:52 | Ultrasound Report ---
US carotid doppler BI CLINICAL HISTORY: 74 years-old Female with stroke. Acute strokelike symptoms COMPARISON: Carotid ultrasound 03/03/2008, brain MRI 11/14/2019 TECHNIQUE: Multiple real time sonographic images of the carotid bifurcations were obtained assessing whitney scale, color Doppler and spectral wave form appearance FINDINGS: RIGHT CAROTID: The peak systolic velocity measured within the right mid ICA is177.2 cm/sec. The end diastolic velocity measured 41.6 cm/sec. The ICA to CCA ratio measured 3.0 which correlates with a stenosis of 50-69%. There is a focal area of severe mixed plaque of the proximal right ICA. Additiona lly, the internal carotid artery is tortuous. LEFT CAROTID: The peak systolic velocity measured within the left ICA is80.1 cm/sec. The end diasto lic velocity measured 23.2 cm/sec. The ICA to CCA ratio measured 0.9 which correlates with a stenosis of 0-50%. There is normal antegrade vertebral flow bilaterally. IMPRESSION: 1. Focal area of severe mixed plaque of the proximal right ICA is noted with elevated peak systolic velocities corresponding to 50-69% stenosis 2. No significant atherosclerotic plaque or hemodynamic significant stenosis of the left common or i nternal carotid arteries. 3. Antegrade flow of the bilateral vertebral arteries. ACT 112: Negative or not required by law. The above report was generated using voice recognition software. It may contain grammatical, syntax o r spelling errors. Electronically signed by: Arnoldo Stiles M.D. 11/17/2019 6:51 AM
[2019-11-17 07:25] LABS: BUN Creatinine Ratio 8.1 (10-20); Calcium 8.4 mg/dl (8.5-10.1); Creatinine Clr Calc Pharmacy 7.3 ml/min; Est GFR (African American) 6.2; Est GFR (Non-African American) 5.3; Magnesium 2.3 mg/dl (1.8-2.4); Phosphorus 7.8 mg/dl (2.5-4.9); Potassium 3.5 mmol/L (3.5-5.1)
--- NOTE | 2019-11-17 07:46 | XRay Report ---
XR chest 1V portable CLINICAL HISTORY: leukocytosis, recent intubation and PTX on Right COMPARISON STUDY: 11/13/2019 FINDINGS: The heart remains enlarged. There is a left subclavian dual-chamber central venous catheter with its tip projected over the right atrium. There has been interval removal right-sided chest tube . No pneumothorax is visualized. There is resolving pulmonary vascular congestion. There is no focal pulmonary consolidation.[ IMPRESSION: 1. Cardiomegaly and resolving pulmonary vascular congestion 2. No evidence of focal pulmonary consolidation 3. Interval removal right-sided chest tube. No pneumothorax identified ACT 112: Negative or not required by law. Electronically signed by: Maximilian Jay M.D. 11/17/2019 7:45 AM
[2019-11-17] MEDS: CEFTAROLINE FOSAMIL ACETATE IV SCH ×2 (07:52→19:49)
[2019-11-17] MEDS: SODIUM CHLORIDE 0.9% IV SCH ×2 (07:52→19:49)
[2019-11-17] MEDS: CARBIDOPA/LEVODOPA 25/100MG TAB PO SCH ×3 (07:54→17:02)
[2019-11-17] MEDS: HEPARIN SOD 5,000 UNIT/0.5 ML VIAL SQ SCH ×2 (07:54→19:47)
[2019-11-17] MEDS: CHOLECALCIFEROL 1,000 UNITS 25 MCG TAB PO SCH (07:55)
[2019-11-17] MEDS: ASPIRIN 81 MG ECTAB PO SCH (07:56)
[2019-11-17] MEDS: ASCORBIC ACID 500 MG TAB PO SCH (07:56)
[2019-11-17] MEDS: VENLAFAXINE HCL XR 75 MG CAPXR PO SCH (07:56)
[2019-11-17] MEDS: AMLODIPINE BESYLATE 5 MG TAB PO SCH (07:56)
[2019-11-17] MEDS: FERROUS SULFATE 325 MG TAB PO SCH (07:57)
[2019-11-17] MEDS: ATORVASTATIN 40 MG TAB PO SCH (07:57)
[2019-11-17] MEDS: CYANOCOBALAMIN 500 MCG TABLET (VITAMIN B-12) PO SCH (07:57)
[2019-11-17] MEDS: CALCIUM ACETATE 667 MG CAP/TAB PO SCH ×3 (07:57→17:02)
[2019-11-17] MEDS: INSULIN ASPART 100 UNITS/ML 3 ML PEN SC SCH ×4 (07:57→21:00)
[2019-11-17 08:02] LABS: Basophils # (auto) 0.09 K/uL (0-0.2); Basophils % (auto) 0.5 %; Eosinophils % (auto) 4.6 %; Immature Granulocytes # (auto) 1.21 K/uL (0.00-0.02); Immature Granulocytes % (auto) 6.1 %; Lymphocytes % (auto) 6.1 %; Monocytes # (auto) 1.93 K/uL (0.11-0.59); Monocytes % (auto) 9.8 %; Neutrophils # (auto) 14.41 K/uL (1.4-6.5); Neutrophils % (auto) 72.9 %
--- NOTE | 2019-11-17 12:49 | Hospitalist Progress Note ---
Date of Service November 17, 2019 Assessment & Plan (1) AMS (altered mental status): AMS Likely multifactorial Possible Metabolic encephalopathy from sepsis from aspiration Other possibilities include possible medication, considering report of family not being aware of decreased lyrica dose from last hospitalization (per H/P) Other possibility is CVA Patient appears to be lethargic with poor insight Acute hypoxic respriatory failure from aspiration, currently resolved. Now on room air For CVA, neurology recommendations noted. Meclizine, oxybutynin, mirapex had been discontinued Will monitor (2) Acute on chronic respiratory failure with hypoxemia: Likely related to aspiration pneumonia during episode of confusion related to initial dialysis treatment. Extubated and Chest tube also removed on 11/12. For MRSA in sputum cx, Continue Ceftaroline. Day 4 Still has leukocytosis. WBC 19 today (20 yesterday) CXR this AM - no evidence of focal pulm consolidation. No pneumothorax Supplemental oxygen / BIPAP when needed. (3) Acute ischemic stroke: Continue aspirin Pravastatin was switched to Lipitor. Neurologist recommendations noted PT notified of MRI findings (4) Chronic diastolic heart failure: Chronic diastolic dysfunction with pulmonary congestion 2/2 ESRD. Torsemide held and fluid management with HD. (5) ESRD (end stage renal disease) on dialysis: Recently started dialysis with possible aspiration pneumonia as a result of nausea and vomiting after first HD session. Nephro on board Getting HD while inpatient (6) Aspiration pneumonia: As above (7) Acute UTI: Klebsiella. Cont abx to complete 7 day therapy (8) Pneumothorax on right: Chest tube removed Pneumothorax resolved (9) Sepsis with acute hypoxic respiratory failure: 2/2 Aspiration pneumonia. Resuscitated and breathing independently now. As above (10) Morbid obesity: (11) DM type 2 (diabetes mellitus, type 2): Cont insulin sliding scale while inpatient (12) Leukocytosis: As above. (13) DVT prophylaxis: heparin Full Code Dispo-cont PCU monitoring. Per Dr Guillen, refuses DNR status and refuses SNF. OK with [facility] is she is approved. Admission and Anticipated Discharge Date Admission Date: November 10, 2019 Subjective Patient seen and examined in HD unit while getting HD Patient is awake, alert, oriented to name only Confused and has limited insight into current medical problems Denied any chest pain, SOB Denied any abd pain, nausea, diarhea,constipation Denied any other complaints Physical Exam Constitutional: + well hydrated and + obese; no acute distress Eyes: Normal conjunctivae, anicteric Poorly following commands to assess eye movement and accomodation ENMT: external ear and nose normal, oropharynx normal Respiratory: normal respiratory effort, lungs clear to auscultation Cardiovascular: RRR, no murmur, no edema Gastrointestinal (Abdomen): normal bowel sounds, soft, nontender, no hepatosplenomegaly Neurologic: AOx1 (person only), follows simple commands such as open your mouth or raise your hands. Difficulty completing multi-step complex commands Results & Data Results & Data ([facility]) Vital Signs (Past 12 Hours) Vital Signs Temp Pulse Pulse Pulse Resp BP BP 11/17/19 12:39 36.8 C 60 116/80 11/17/19 12:20 62 111/58 L 11/17/19 12:00 64 102/57 L 11/17/19 11:40 61 110/60 11/17/19 11:20 57 L 103/57 L 11/17/19 11:00 50 L 95/44 L 11/17/19 10:40 58 L 102/55 L 11/17/19 10:20 66 101/56 L 11/17/19 10:00 46 L 116/56 L 11/17/19 09:40 64 119/63 11/17/19 09:20 51 L 106/64 11/17/19 09:00 63 117/63 11/17/19 08:30 36.8 C 60 11/17/19 07:58 36.3 C L 66 19 117/50 L 11/17/19 03:29 36.8 C 60 19 134/60 11/17/19 03:09 71 23 Pulse Ox 11/17/19 12:39 11/17/19 12:20 11/17/19 12:00 11/17/19 11:40 11/17/19 11:20 11/17/19 11:00 11/17/19 10:40 11/17/19 10:20 11/17/19 10:00 11/17/19 09:40 11/17/19 09:20 11/17/19 09:00 11/17/19 08:30 11/17/19 07:58 94 11/17/19 03:29 97 11/17/19 03:09 97 Laboratory Results Laboratory Results - last 24 hr 11/16/19 11/16/19 11/17/19 16:17 20:39 06:24 WBC RBC Hgb Hct MCV MCH MCHC RDW Std Deviation RDW Coeff of Bhavin Plt Count MPV Immature Gran % (Auto) Neut % (Auto) Lymph % (Auto) Arthur % (Auto) Eos % (Auto) Baso % (Auto) Neut # (Auto) Lymph # (Auto) Arthur # (Auto) Eos # (Auto) Baso # (Auto) Immature Gran # (Auto) Sodium 136 Potassium 3.5 Chloride 100 Carbon Dioxide 21 Anion Gap 15.0 H BUN 56 H Creatinine 6.99 H* D Est Cr Clr Drug Dosing 7.3 Est GFR ( Amer) 6.2 Est GFR (Non-Af Amer) 5.3 BUN/Creatinine Ratio 8.1 L Glucose 97 POC Glucose 127 H 106 H Calcium 8.4 L Phosphorus 7.8 H Magnesium 2.3 Triglycerides 230 H Cholesterol 159 LDL Cholesterol, Calc 69 VLDL Cholesterol, Calc 46 HDL Cholesterol 44 Cholesterol/HDL Ratio 4 11/17/19 11/17/19 11/17/19 06:24 07:51 12:58 WBC 19.74 H RBC 3.41 L Hgb 9.5 L Hct 30.4 L MCV 89.1 MCH 27.9 MCHC 31.3 L RDW Std Deviation 49.8 H RDW Coeff of Bhavin 15.9 H Plt Count 333 MPV 10.6 H Immature Gran % (Auto) 6.1 Neut % (Auto) 72.9 Lymph % (Auto) 6.1 Arthur % (Auto) 9.8 Eos % (Auto) 4.6 Baso % (Auto) 0.5 Neut # (Auto) 14.41 H Lymph # (Auto) 1.20 Arthur # (Auto) 1.93 H Eos # (Auto) 0.90 H Baso # (Auto) 0.09 Immature Gran # (Auto) 1.21 H Sodium Potassium Chloride Carbon Dioxide Anion Gap BUN Creatinine Est Cr Clr Drug Dosing Est GFR ( Amer) Est GFR (Non-Af Amer) BUN/Creatinine Ratio Glucose POC Glucose 94 85 Calcium Phosphorus Magnesium Triglycerides Cholesterol LDL Cholesterol, Calc VLDL Cholesterol, Calc HDL Cholesterol Cholesterol/HDL Ratio (1) Aspiration pneumonia Aspiration pneumonia type: due to vomit Laterality: bilateral Lung location: lower lobe of lung Qualified Code(s): J69.0 - Pneumonitis due to inhalation of food and vomit (2) Sepsis with acute hypoxic respiratory failure Sepsis type: sepsis due to unspecified organism Severe sepsis shock status: without septic shock Qualified Code(s): A41.9 - Sepsis, unspecified organism; R65.20 - Severe sepsis without septic shock; J96.01 - Acute respiratory failure with hypoxia (3) AMS (altered mental status) Altered mental status type: somnolence Qualified Code(s): R40.0 - Somnolence
--- NOTE | 2019-11-17 17:40 | Progress Notes ---
DATE: 11/17/2019 SUBJECTIVE: I am seeing Mrs. Hassan in followup of a radiographic acute lacunar infarction in the right periventricular region. The patient is waking up nicely, has no new neurologic complaints. Her carotid ultrasound shows a 50%-69% stenosis of the right internal carotid. No significant stenosis in the left internal carotid and antegrade flow through the vertebral arteries. Echocardiogram; mitral regurg is not evident as compared to a prior study. Moderate LVH, septal motion consistent with conduction abnormality. Right ventricle systolic function is normal. Grade 1 diastolic dysfunction, aortic valve sclerosis, mild, without stenosis. PHYSICAL EXAMINATION: The patient is awake and alert. Mentation is mildly slow. There is facial masking and decreased blink frequency. The patient is alert and oriented x3, no right/left confusion and naming is normal. Pupils are equal. There is normal motility and visual anand, normal facial symmetry. There is mild hypophonia. There is mild cogwheel rigidity of the right hand. There is symmetric upper extremity strength. She can lift both legs off the bed antigravity. [id number] is unremarkable and toe tapping is normal. IMPRESSION AND PLAN: 1. Asymptomatic right periventricular lacunar infarction: Continue risk factor modification. Consider increasing aspirin to 162 mg daily if there are no contraindications such as bleeding. 2. Regarding right internal carotid stenosis 50%-69%, would recommend a followup carotid ultrasound in 6 months and then yearly if stable with referral to vascular surgery if the stenosis is greater than 70%. 3. Parkinson disease: The patient has minor signs, but no major motoric signs at least while examined in bed. Will likely need some ongoing physical therapy after discharge. We will sign off at this point.
--- NOTE | 2019-11-17 20:07 | Nephrology Progress Note ---
Date of Service November 17, 2019 Assessment & Plan (1) AMS (altered mental status): Likely metabolic encephalopathy. There was also question of possible dialysis disequilibrium syndrome. Patient was also noted to have CVA on imaging. Mental status is improving. Will continue to dialyze with low blood flow (2) Aspiration pneumonia: on abtx and s/p challenging intubation; patient continues to have leukocytosis. Continue ceftaroline renally dosed (3) ESRD (end stage renal disease) on dialysis: chemistries and anemia status for dialysis acceptable; some mild volume overload but not florid>> tolerating fluid removal. Anuric Tolerated HD today with net loss of 1 litre. Had IDH and goal UF was reduced. Next dialysis will be on Friday. Admission and Anticipated Discharge Date Admission Date: November 10, 2019 Subjective Patient seen and examined while on dialysis this morning. She denied SOB. Intermittently confused. BP dropped during HD and goal was reduced to 1 litre Review of Systems Review of Systems: All systems reviewed & are unremarkable except as noted in HPI & below Physical Exam Physical Exam: General exam: Appears comfortable, no acute distress HEENT: Pupils are equal and reactive to light Neck: No JVD, neck is supple trachea is midline Respiratory system: Clear breath sounds bilaterally. Gastrointestinal: Abdomen is soft, non distended, non tender, bowel sounds are present CVS: Regular rate and rhythm. No murmurs, rubs or gallops Musculoskeletal: No joint or muscle tenderness Extremities: Non tender, no edema, peripheral pulses are present Neuro: Oriented x1, no tremors, no focal neurological deficits Skin: No rashes Access: left CVC Results & Data ([facility]) Vital Signs (Past 12 Hours) Vital Signs Temp Pulse Pulse Resp BP BP Pulse Ox 11/17/19 19:32 37.1 C 77 19 125/60 94 11/17/19 15:37 37.1 C 66 16 112/71 93 11/17/19 13:01 36.9 C 54 L 19 125/57 L 95 11/17/19 12:39 36.8 C 60 116/80 11/17/19 12:20 62 111/58 L 11/17/19 12:00 64 102/57 L 11/17/19 11:40 61 110/60 11/17/19 11:20 57 L 103/57 L 11/17/19 11:00 50 L 95/44 L 11/17/19 10:40 58 L 102/55 L 11/17/19 10:20 66 101/56 L 11/17/19 10:00 46 L 116/56 L 11/17/19 09:40 64 119/63 11/17/19 09:20 51 L 106/64 11/17/19 09:00 63 117/63 11/17/19 08:30 36.8 C 60 Laboratory Results 11/17/19 06:24 11/17/19 11/17/19 06:24 06:24 WBC 19.74 H RBC 3.41 L MCV 89.1 MCH 27.9 MCHC 31.3 L RDW Std Deviation 49.8 H RDW Coeff of Bhavin 15.9 H Plt Count 333 MPV 10.6 H Phosphorus 7.8 H (1) AMS (altered mental status) Altered mental status type: somnolence Qualified Code(s): R40.0 - Somnolence (2) Aspiration pneumonia Aspiration pneumonia type: due to vomit Laterality: bilateral Lung location: lower lobe of lung Qualified Code(s): J69.0 - Pneumonitis due to inhalation of food and vomit
[2019-11-18] MEDS: LEVOTHYROXINE SODIUM 125 MCG TABLET PO SCH (06:17)
[2019-11-18 06:19] LABS: Hematocrit (blood only) 29.7 % (37-47); Hemoglobin 9.7 g/dL (12.0-16.0); Mean Corpuscular Hemoglobin 28.7 pg (25-34); Mean Corpuscular Hgb Conc 32.7 g/dL (32-36); Mean Corpuscular Volume 87.9 fL (80-100); Mean Platelet Volume 10.1 fL (7.4-10.4); Platelet Count 304 K/uL (130-400); RDW Coefficient of Variation 16.2 % (11.5-14.5); RDW Standard Deviation 50.6 fL (36.4-46.3); Red Blood Count 3.38 M/uL (4.2-5.4); White Blood Count 17.34 K/uL (4.8-10.8)
[2019-11-18 07:13] LABS: Calcium 8.5 mg/dl (8.5-10.1); Creatinine Clr Calc Pharmacy 10.1 ml/min; Est GFR (African American) 8.9; Est GFR (Non-African American) 7.7; Potassium 3.3 mmol/L (3.5-5.1)
[2019-11-18] MEDS: ASPIRIN 81 MG ECTAB PO SCH (08:10)
[2019-11-18] MEDS: CALCIUM ACETATE 667 MG CAP/TAB PO SCH ×3 (08:10→17:06)
[2019-11-18] MEDS: ASCORBIC ACID 500 MG TAB PO SCH (08:11)
[2019-11-18] MEDS: CYANOCOBALAMIN 500 MCG TABLET (VITAMIN B-12) PO SCH (08:11)
[2019-11-18] MEDS: FERROUS SULFATE 325 MG TAB PO SCH (08:12)
[2019-11-18] MEDS: ATORVASTATIN 40 MG TAB PO SCH (08:12)
[2019-11-18] MEDS: AMLODIPINE BESYLATE 5 MG TAB PO SCH (08:12)
[2019-11-18] MEDS: CARBIDOPA/LEVODOPA 25/100MG TAB PO SCH ×3 (08:12→17:05)
[2019-11-18] MEDS: VENLAFAXINE HCL XR 75 MG CAPXR PO SCH (08:12)
[2019-11-18] MEDS: HEPARIN SOD 5,000 UNIT/0.5 ML VIAL SQ SCH ×2 (08:13→20:22)
[2019-11-18] MEDS: CHOLECALCIFEROL 1,000 UNITS 25 MCG TAB PO SCH (08:13)
[2019-11-18] MEDS: INSULIN ASPART 100 UNITS/ML 3 ML PEN SC SCH ×4 (08:20→20:21)
[2019-11-18] MEDS: CEFTAROLINE FOSAMIL ACETATE IV SCH ×2 (08:29→20:21)
[2019-11-18] MEDS: SODIUM CHLORIDE 0.9% IV SCH ×2 (08:29→20:21)
--- NOTE | 2019-11-18 13:11 | Hospitalist Progress Note ---
Date of Service November 18, 2019 Assessment & Plan (1) AMS (altered mental status): AMS Likely multifactorial Possible Metabolic encephalopathy from sepsis from aspiration Other possibilities include possible medication, considering report of family not being aware of decreased lyrica dose from last hospitalization (per H/P) Other possibility is CVA Mental status appears better today Acute hypoxic respriatory failure from aspiration, currently resolved. Now on room air For CVA, neurology recommendations noted. Meclizine, oxybutynin, mirapex had been discontinued (2) Acute on chronic respiratory failure with hypoxemia: Likely related to aspiration pneumonia during episode of confusion related to initial dialysis treatment. Extubated and Chest tube also removed on 11/12. For MRSA in sputum cx, Patient was on ceftaroline Appreciate ID recommendations Leukocytosis improving CXR from 11/17/19 - no evidence of focal pulm consolidation. No pneumothorax Per ID, will plan discharge on vancomycin on HD days to complete therapy. (3) Acute ischemic stroke: Continue aspirin. Increased to 162mg daily per neuro Pravastatin was switched to Lipitor. Neurologist recommendations noted PT notified of MRI findings (4) Chronic diastolic heart failure: Chronic diastolic dysfunction with pulmonary congestion 2/2 ESRD. Torsemide held and fluid management with HD. (5) ESRD (end stage renal disease) on dialysis: Recently started dialysis with possible aspiration pneumonia as a result of nausea and vomiting after first HD session. Nephro on board Getting HD while inpatient (6) Aspiration pneumonia: As above (7) Acute UTI: Klebsiella. Treated (8) Pneumothorax on right: Chest tube removed Pneumothorax resolved (9) Sepsis with acute hypoxic respiratory failure: 2/2 Aspiration pneumonia. Resuscitated and breathing independently now. As above (10) Morbid obesity: (11) DM type 2 (diabetes mellitus, type 2): Cont insulin sliding scale while inpatient (12) Leukocytosis: As above. (13) DVT prophylaxis: heparin Full Code Dispo-cont PCU monitoring. Per Dr Guillen, refuses DNR status and refuses SNF. Patient's had refused other SNF and wanted only [facility] per [facility] I called patient's to discuss this with him and the plan. After updating him on plans, I informed him that discharge options will be to home or to SNF at this point. He is still not interested in SNF and wants [facility]. He stated he will try to appeal this. CM also called patient's HD to make arrangement for vancomycin with HD till 11/22/19 but reported she couldn't reach them Will follow up with CM tomorrow about this Admission and Anticipated Discharge Date Admission Date: November 10, 2019 Subjective Patient seen and examined Patient is awake, alert, oriented to person,place, year. Appear to have hearing difficulty as she needed communication in high volumes Poor insight Denied any chest pain, SOB, cough Denied any abd pain, nausea, vomiting, diarrhea Denied any fevers, chills Physical Exam Constitutional: + well hydrated and + obese; no acute distress Eyes: PERRL, conjunctivae normal, anicteric sclerae ENMT: external ear and nose normal, oropharynx normal Respiratory: normal respiratory effort, lungs clear to auscultation Cardiovascular: RRR, no murmur, no edema Gastrointestinal (Abdomen): normal bowel sounds, soft, nontender, no hepatosplenomegaly Neurologic: Alert, oriented to person, place and year. Moves extremities. Follows simple commands Results & Data Results & Data ([facility]) Vital Signs (Past 12 Hours) Vital Signs Temp Pulse Pulse Resp BP Pulse Ox 11/18/19 11:58 36.8 C 62 18 103/57 L 100 11/18/19 08:00 62 11/18/19 07:53 37.0 C 69 19 110/65 96 11/18/19 03:22 36.6 C 56 L 19 117/52 L 97 Laboratory Results Laboratory Results - last 24 hr 11/17/19 11/17/19 11/18/19 16:11 20:21 06:06 WBC 17.34 H RBC 3.38 L Hgb 9.7 L Hct 29.7 L MCV 87.9 MCH 28.7 MCHC 32.7 RDW Std Deviation 50.6 H RDW Coeff of Bhavin 16.2 H Plt Count 304 MPV 10.1 Sodium Potassium Chloride Carbon Dioxide Anion Gap BUN Creatinine Est Cr Clr Drug Dosing Est GFR ( Amer) Est GFR (Non-Af Amer) BUN/Creatinine Ratio Glucose POC Glucose 100 H 98 Calcium 11/18/19 11/18/19 11/18/19 06:06 07:23 11:10 WBC RBC Hgb Hct MCV MCH MCHC RDW Std Deviation RDW Coeff of Bhavin Plt Count MPV Sodium 138 Potassium 3.3 L Chloride 102 Carbon Dioxide 24 Anion Gap 12.0 H BUN 31 H Creatinine 5.14 H* D Est Cr Clr Drug Dosing 10.1 Est GFR ( Amer) 8.9 Est GFR (Non-Af Amer) 7.7 BUN/Creatinine Ratio 6.0 L Glucose 93 POC Glucose 99 106 H Calcium 8.5 (1) AMS (altered mental status) Altered mental status type: somnolence Qualified Code(s): R40.0 - Somnolence (2) Aspiration pneumonia Aspiration pneumonia type: due to vomit Laterality: bilateral Lung location: lower lobe of lung Qualified Code(s): J69.0 - Pneumonitis due to inhalation of food and vomit (3) Sepsis with acute hypoxic respiratory failure Sepsis type: sepsis due to unspecified organism Severe sepsis shock status: without septic shock Qualified Code(s): A41.9 - Sepsis, unspecified organism; R65.20 - Severe sepsis without septic shock; J96.01 - Acute respiratory failure with hypoxia
[2019-11-18] MEDS ORDERED: VANCOMYCIN CONSULT ACTIVE PRN (15:08)
--- NOTE | 2019-11-18 15:22 | Pharmacy Report ---
Pharmacy Abx Dose Short Note - Date of Service November 18, 2019 - Assessment & Plan Assessment 74 year old F receiving ceftaroline for treatment of MRSA pneumonia. Patient has been treated with 5 days of ceftaroline, will switch to vancomycin after dialysis tomorrow to complete 7-10 days of therapy. Patient should continue to receive ceftaroline through tomorrow AM dose. 7 days of therapy would complete on 11/19, 10 days on 11/22. Plan Vancomycin * Plan to give 1500 mg x1 (17mg/kg) at end/after dialysis tomorrow * Additional dosing will be determine by length of therapy/additional dialysis sessions/any urine output * Level to be ordered after further plans elucidated tomorrow Pharmacy will continue to follow and will adjust dose/frequency as necessary. Thank you.
--- NOTE | 2019-11-18 15:26 | Nephrology Progress Note ---
Date of Service November 18, 2019 Assessment & Plan (1) AMS (altered mental status): Likely metabolic encephalopathy. There was also question of possible dialysis disequilibrium syndrome. Patient was also noted to have CVA on imaging. Mental status is improving. Will continue to dialyze with low blood flow (2) Aspiration pneumonia: on abtx and s/p challenging intubation; patient continues to have leukocytosis. Continue ceftaroline renally dosed (3) ESRD (end stage renal disease) on dialysis: She is tolerating dialysis well. Potassium is low; some mild volume overload but not florid>> tolerating fluid removal. Anuric Tolerated HD yesterday with net loss of 1 litre. Had IDH and goal UF was red uced. Next dialysis will be on Friday for 4 hours on a 4K bath. Admission and Anticipated Discharge Date Admission Date: November 10, 2019 Subjective Patient feels better today. No shortness of breath. She is not eating well. She wants to go home. She tolerated dialysis well yesterday. Review of Systems Review of Systems: All systems reviewed & are unremarkable except as noted in HPI & below Physical Exam Physical Exam: General exam: Appears comfortable, no acute distress HEENT: Pupils are equal and reactive to light Neck: No JVD, neck is supple trachea is midline Respiratory system: Clear breath sounds bilaterally. Gastrointestinal: Abdomen is soft, non distended, non tender, bowel sounds are present CVS: Regular rate and rhythm. No murmurs, rubs or gallops Musculoskeletal: No joint or muscle tenderness Extremities: Non tender, no edema, peripheral pulses are present Neuro: Oriented, no tremors, no focal neurological deficits Skin: No rashes Access: Left CVC Results & Data ([facility]) Vital Signs (Past 12 Hours) Vital Signs Temp Pulse Pulse Pulse Resp BP Pulse Ox 11/18/19 15:22 37.3 C 71 18 111/46 L 90 11/18/19 11:58 36.8 C 62 18 103/57 L 100 11/18/19 08:00 62 11/18/19 07:53 37.0 C 69 19 110/65 96 Laboratory Results 11/18/19 06:06 11/18/19 06:06 WBC 17.34 H RBC 3.38 L MCV 87.9 MCH 28.7 MCHC 32.7 RDW Std Deviation 50.6 H RDW Coeff of Bhavin 16.2 H Plt Count 304 MPV 10.1 (1) AMS (altered mental status) Altered mental status type: somnolence Qualified Code(s): R40.0 - Somnolence (2) Aspiration pneumonia Aspiration pneumonia type: due to vomit Laterality: bilateral Lung location: lower lobe of lung Qualified Code(s): J69.0 - Pneumonitis due to inhalation of food and vomit
[2019-11-19] MEDS: LEVOTHYROXINE SODIUM 125 MCG TABLET PO SCH (06:38)
[2019-11-19 06:41] LABS: Hemoglobin 9.1 g/dL (12.0-16.0); Mean Corpuscular Hemoglobin 27.2 pg (25-34); Mean Corpuscular Hgb Conc 30.3 g/dL (32-36); Mean Corpuscular Volume 89.6 fL (80-100); Mean Platelet Volume 10.7 fL (7.4-10.4); Platelet Count 334 K/uL (130-400); RDW Coefficient of Variation 16.3 % (11.5-14.5); RDW Standard Deviation 51.9 fL (36.4-46.3); Red Blood Count 3.35 M/uL (4.2-5.4); White Blood Count 16.38 K/uL (4.8-10.8)
[2019-11-19 07:28] LABS: BUN Creatinine Ratio 6.6 (10-20); Calcium 8.3 mg/dl (8.5-10.1); Creatinine Clr Calc Pharmacy 7.6 ml/min; Est GFR (African American) 6.4; Est GFR (Non-African American) 5.5; Potassium 3.3 mmol/L (3.5-5.1)
[2019-11-19] MEDS: AMLODIPINE BESYLATE 5 MG TAB PO SCH (08:14)
[2019-11-19] MEDS: ASCORBIC ACID 500 MG TAB PO SCH (08:14)
[2019-11-19] MEDS: SODIUM CHLORIDE 0.9% IV SCH (08:14)
[2019-11-19] MEDS: HEPARIN SOD 5,000 UNIT/0.5 ML VIAL SQ SCH ×2 (08:14→20:42)
[2019-11-19] MEDS: CALCIUM ACETATE 667 MG CAP/TAB PO SCH ×3 (08:14→17:09)
[2019-11-19] MEDS: CEFTAROLINE FOSAMIL ACETATE IV SCH (08:14)
[2019-11-19] MEDS: ASPIRIN 81 MG ECTAB PO SCH (08:15)
[2019-11-19] MEDS: CYANOCOBALAMIN 500 MCG TABLET (VITAMIN B-12) PO SCH (08:15)
[2019-11-19] MEDS: VENLAFAXINE HCL XR 75 MG CAPXR PO SCH (08:15)
[2019-11-19] MEDS: CARBIDOPA/LEVODOPA 25/100MG TAB PO SCH ×3 (08:15→17:09)
[2019-11-19] MEDS: ATORVASTATIN 40 MG TAB PO SCH (08:15)
[2019-11-19] MEDS: CHOLECALCIFEROL 1,000 UNITS 25 MCG TAB PO SCH (08:15)
[2019-11-19] MEDS: FERROUS SULFATE 325 MG TAB PO SCH (08:15)
[2019-11-19] MEDS: INSULIN ASPART 100 UNITS/ML 3 ML PEN SC SCH ×4 (08:30→20:42)
--- NOTE | 2019-11-19 10:59 | Hospitalist Progress Note ---
Date of Service November 19, 2019 Assessment & Plan (1) AMS (altered mental status): AMS Likely multifactorial Possible Metabolic encephalopathy from sepsis from aspiration Other possibilities include possible medication, considering report of family not being aware of decreased lyrica dose from last hospitalization (per H/P) Other possibility is CVA Mental status stable Acute hypoxic respriatory failure from aspiration, currently resolved. Now on room air For CVA, neurology recommendations noted. Meclizine, oxybutynin, mirapex had been discontinued (2) Acute on chronic respiratory failure with hypoxemia: Likely related to aspiration pneumonia during episode of confusion related to initial dialysis treatment. Extubated and Chest tube also removed on 11/12. For MRSA in sputum cx, Patient was on ceftaroline Appreciate ID recommendations Leukocytosis improving CXR from 11/17/19 - no evidence of focal pulm consolidation. No pneumothorax To get vanco today with HD and last dose on friday (3) Acute ischemic stroke: Continue aspirin. Increased to 162mg daily per neuro Pravastatin was switched to Lipitor. Neurologist recommendations noted (4) Chronic diastolic heart failure: Chronic diastolic dysfunction with pulmonary congestion 2/2 ESRD. Torsemide held and fluid management with HD. (5) ESRD (end stage renal disease) on dialysis: Recently started dialysis with possible aspiration pneumonia as a result of nausea and vomiting after first HD session. Nephro on board Getting HD while inpatient (6) Aspiration pneumonia: As above (7) Acute UTI: Klebsiella. Treated (8) Pneumothorax on right: Chest tube removed Pneumothorax resolved (9) Sepsis with acute hypoxic respiratory failure: 2/2 Aspiration pneumonia. Resuscitated and breathing independently now. As above (10) Morbid obesity: (11) DM type 2 (diabetes mellitus, type 2): Cont insulin sliding scale while inpatient (12) Leukocytosis: As above. (13) DVT prophylaxis: heparin Full Code Dispo-cont PCU monitoring. Per Dr Guillen, refuses DNR status and refuses SNF. Patient's had refused other SNF and wanted only [facility] CM Discussed with CM today. Patient's wants patient to be discharged to [facility] and not home and appealing [facility] denial today Will follow up with CM about outcome of appeal CM working with patient's HD for friday's dialysis if patient is discharged tomorrow or next Admission and Anticipated Discharge Date Admission Date: November 10, 2019 Subjective Patient seen and examined Denied any complaints today Physical Exam Constitutional: + well hydrated and + obese; no acute distress Eyes: PERRL, conjunctivae normal, anicteric sclerae ENMT: external ear and nose normal, oropharynx normal Respiratory: normal respiratory effort, lungs clear to auscultation Cardiovascular: RRR, no murmur, no edema Chest (Breasts): Additional Comments: Suture on right chest wall Gastrointestinal (Abdomen): normal bowel sounds, soft, nontender, no hepatosplenomegaly Neurologic: Alert and oriented to person, place, month and year. Moves all extremities. Results & Data Results & Data ([facility]) Vital Signs (Past 12 Hours) Vital Signs Temp Pulse Resp BP Pulse Ox 11/19/19 07:46 37.7 C H 61 19 107/51 L 93 11/19/19 03:40 36.8 C 78 19 108/59 L 92 11/18/19 23:40 36.7 C 63 19 123/45 L 93 Laboratory Results Laboratory Results - last 24 hr 11/18/19 11/18/19 11/19/19 16:39 20:05 06:16 WBC 16.38 H RBC 3.35 L Hgb 9.1 L Hct 30.0 L MCV 89.6 MCH 27.2 MCHC 30.3 L RDW Std Deviation 51.9 H RDW Coeff of Bhavin 16.3 H Plt Count 334 MPV 10.7 H Sodium Potassium Chloride Carbon Dioxide Anion Gap BUN Creatinine Est Cr Clr Drug Dosing Est GFR ( Amer) Est GFR (Non-Af Amer) BUN/Creatinine Ratio Glucose POC Glucose 101 H 121 H Calcium 11/19/19 11/19/19 11/19/19 06:16 07:15 11:58 WBC RBC Hgb Hct MCV MCH MCHC RDW Std Deviation RDW Coeff of Bhavin Plt Count MPV Sodium 137 Potassium 3.3 L Chloride 102 Carbon Dioxide 24 Anion Gap 11.0 BUN 44 H Creatinine 6.76 H* D Est Cr Clr Drug Dosing 7.6 Est GFR ( Amer) 6.4 Est GFR (Non-Af Amer) 5.5 BUN/Creatinine Ratio 6.6 L Glucose 95 POC Glucose 96 84 Calcium 8.3 L (1) AMS (altered mental status) Altered mental status type: somnolence Qualified Code(s): R40.0 - Somnolence (2) Aspiration pneumonia Aspiration pneumonia type: due to vomit Laterality: bilateral Lung location: lower lobe of lung Qualified Code(s): J69.0 - Pneumonitis due to inhalation of food and vomit (3) Sepsis with acute hypoxic respiratory failure Sepsis type: sepsis due to unspecified organism Severe sepsis shock status: without septic shock Qualified Code(s): A41.9 - Sepsis, unspecified organism; R65.20 - Severe sepsis without septic shock; J96.01 - Acute respiratory failure with hypoxia
--- NOTE | 2019-11-19 13:26 | Nephrology Progress Note ---
Date of Service November 19, 2019 Assessment & Plan (1) AMS (altered mental status): Likely metabolic encephalopathy. There was also question of possible dialysis disequilibrium syndrome. Patient was also noted to have CVA on imaging. Mental status is improving. Will continue to dialyze with low blood flow (2) Aspiration pneumonia: on abtx and s/p challenging intubation; patient continues to have leukocytosis. Continue ceftaroline renally dosed (3) ESRD (end stage renal disease) on dialysis: She is tolerating dialysis well. Potassium is low; she is being dialyzed on a 4K bath for 4 hours and target UF of 1 L. next dialysis will be on Friday. From renal standpoint patient can be discharged to rehab Admission and Anticipated Discharge Date Admission Date: November 10, 2019 Subjective Patient is more awake today. She denies any shortness of breath or pain. She wants to be discharged home to the . She was seen and examined while on dialysis. She is tolerating dialysis well. Review of Systems Review of Systems: All systems reviewed & are unremarkable except as noted in HPI & below Physical Exam Physical Exam: General exam: Appears comfortable, no acute distress HEENT: Pupils are equal and reactive to light Neck: No JVD, neck is supple trachea is midline Respiratory system: Clear breath sounds bilaterally. Gastrointestinal: Abdomen is soft, non distended, non tender, bowel sounds are present CVS: Regular rate and rhythm. No murmurs, rubs or gallops Musculoskeletal: No joint or muscle tenderness Extremities: Non tender, no edema, peripheral pulses are present Neuro: Oriented, no tremors, no focal neurological deficits Skin: No rashes Access: Left CVC Results & Data ([facility]) Vital Signs (Past 12 Hours) Vital Signs Temp Pulse Pulse Pulse Resp BP BP 11/19/19 13:00 54 L 115/45 L 11/19/19 12:40 32 L 71/41 L 11/19/19 12:25 59 L 104/49 L 11/19/19 12:20 61 85/38 L 11/19/19 11:59 69 99/46 L 11/19/19 11:40 63 91/55 L 11/19/19 11:20 58 L 93/79 L 11/19/19 11:00 59 L 103/49 L 11/19/19 10:40 58 L 105/55 L 11/19/19 10:33 55 L 113/60 11/19/19 10:00 36.8 C 57 L 11/19/19 07:46 37.7 C H 61 19 107/51 L 11/19/19 03:40 36.8 C 78 19 108/59 L Pulse Ox 11/19/19 13:00 11/19/19 12:40 11/19/19 12:25 11/19/19 12:20 11/19/19 11:59 11/19/19 11:40 11/19/19 11:20 11/19/19 11:00 11/19/19 10:40 11/19/19 10:33 11/19/19 10:00 11/19/19 07:46 93 11/19/19 03:40 92 Laboratory Results 11/19/19 06:16 11/19/19 06:16 WBC 16.38 H RBC 3.35 L MCV 89.6 MCH 27.2 MCHC 30.3 L RDW Std Deviation 51.9 H RDW Coeff of Bhavin 16.3 H Plt Count 334 MPV 10.7 H (1) AMS (altered mental status) Altered mental status type: somnolence Qualified Code(s): R40.0 - Somnolence (2) Aspiration pneumonia Aspiration pneumonia type: due to vomit Laterality: bilateral Lung location: lower lobe of lung Qualified Code(s): J69.0 - Pneumonitis due to inhalation of food and vomit
[2019-11-19] MEDS ORDERED: VANCOMYCIN HCL 1,500 MG in SODIUM CHLORIDE 0.9% 500 ML IV ONE (16:00)
[2019-11-19] MEDS ORDERED: VANCOMYCIN HCL 1,750 MG in SODIUM CHLORIDE 0.9% 500 ML IV ONE (16:00)
[2019-11-20] MEDS: LEVOTHYROXINE SODIUM 125 MCG TABLET PO SCH ×2 (06:26→08:03)
[2019-11-20] MEDS: AMLODIPINE BESYLATE 5 MG TAB PO SCH (08:03)
[2019-11-20] MEDS: CALCIUM ACETATE 667 MG CAP/TAB PO SCH ×3 (08:03→17:15)
[2019-11-20] MEDS: CARBIDOPA/LEVODOPA 25/100MG TAB PO SCH ×3 (08:03→17:15)
[2019-11-20] MEDS: FERROUS SULFATE 325 MG TAB PO SCH (08:04)
[2019-11-20] MEDS: CHOLECALCIFEROL 1,000 UNITS 25 MCG TAB PO SCH (08:04)
[2019-11-20] MEDS: VENLAFAXINE HCL XR 75 MG CAPXR PO SCH (08:04)
[2019-11-20] MEDS: ASPIRIN 81 MG ECTAB PO SCH (08:04)
[2019-11-20] MEDS: HEPARIN SOD 5,000 UNIT/0.5 ML VIAL SQ SCH ×2 (08:04→20:17)
[2019-11-20] MEDS: ATORVASTATIN 40 MG TAB PO SCH (08:04)
[2019-11-20] MEDS: ASCORBIC ACID 500 MG TAB PO SCH (08:04)
[2019-11-20] MEDS: CYANOCOBALAMIN 500 MCG TABLET (VITAMIN B-12) PO SCH (08:04)
[2019-11-20] MEDS: INSULIN ASPART 100 UNITS/ML 3 ML PEN SC SCH ×4 (08:05→20:16)
--- NOTE | 2019-11-20 08:39 | Hospitalist Progress Note ---
Date of Service November 20, 2019 Assessment & Plan (1) AMS (altered mental status): AMS Likely multifactorial Possible Metabolic encephalopathy from sepsis from aspiration Other possibilities include possible medication, considering report of family not being aware of decreased lyrica dose from last hospitalization (per H/P) Other possibility is CVA Mental status back to baseline Acute hypoxic respiratory failure from aspiration, currently resolved. Now on room air For CVA, neurology recommendations noted. Meclizine, oxybutynin, mirapex had been discontinued (2) Acute on chronic respiratory failure with hypoxemia: Likely related to aspiration pneumonia during episode of confusion related to initial dialysis treatment. Extubated and Chest tube also removed on 11/12. For MRSA in sputum cx, Patient was on ceftaroline Appreciate ID recommendations Leukocytosis improved CXR from 11/17/19 - no evidence of focal pulm consolidation. No pneumothorax Will get last dose of vanc with HD on friday (3) Acute ischemic stroke: Continue aspirin 162mg daily per neuro Pravastatin was switched to Lipitor. Neurologist recommendations noted (4) Chronic diastolic heart failure: Chronic diastolic dysfunction with pulmonary congestion 2/2 ESRD. Torsemide held and fluid management with HD. (5) ESRD (end stage renal disease) on dialysis: Recently started dialysis with possible aspiration pneumonia as a result of nausea and vomiting after first HD session. Nephro on board Getting HD while inpatient (6) Aspiration pneumonia: As above (7) Acute UTI: Klebsiella. Treated (8) Pneumothorax on right: Chest tube removed Suture at site removed yesterday Pneumothorax resolved (9) Sepsis with acute hypoxic respiratory failure: 2/2 Aspiration pneumonia. Resuscitated and breathing independently now. As above (10) Morbid obesity: (11) DM type 2 (diabetes mellitus, type 2): Cont insulin sliding scale while inpatient (12) Leukocytosis: As above. (13) DVT prophylaxis: heparin Full Code Dispo-cont PCU monitoring. Per Dr Guillen, refuses DNR status and refuses SNF. Patient's had refused other SNF and wanted only [facility] per CM Informed by RN yesterday evening that stated [facility] appeal was denied Call to was unanswered. Will try again later Spoke with CM with regards to dc planning. If is still refusing SNF, will plan to dc home with home health and then send script for vanco on friday to HD center. CM will follow up with Admission and Anticipated Discharge Date Admission Date: November 10, 2019 Subjective Patient seen and examined. Denied any complaints Physical Exam Constitutional: + well hydrated and + obese; no acute distress Eyes: PERRL, conjunctivae normal, anicteric sclerae ENMT: external ear and nose normal, oropharynx normal Respiratory: normal respiratory effort, lungs clear to auscultation Cardiovascular: RRR, no murmur, no edema Gastrointestinal (Abdomen): normal bowel sounds, soft, nontender, no hepatospl enomegaly Neurologic: PERRL, EOMI, accommodation nl, no face palsy, no dysarthria Psychiatric: A+Ox3, euthymic affect Results & Data Results & Data ([facility]) Vital Signs (Past 12 Hours) Vital Signs Temp Pulse Resp BP Pulse Ox 11/20/19 07:46 37.0 C 74 17 119/66 95 11/19/19 23:20 37 C 66 93 Laboratory Results Laboratory Results - last 24 hr 11/19/19 11/19/19 11/19/19 11:58 16:17 20:11 POC Glucose 84 134 H 154 H Random Vancomycin 11/20/19 11/20/19 04:53 07:54 POC Glucose 104 H Random Vancomycin 30.3 (1) AMS (altered mental status) Altered mental status type: somnolence Qualified Code(s): R40.0 - Somnolence (2) Aspiration pneumonia Aspiration pneumonia type: due to vomit Laterality: bilateral Lung location: lower lobe of lung Qualified Code(s): J69.0 - Pneumonitis due to inhalation of food and vomit (3) Sepsis with acute hypoxic respiratory failure Sepsis type: sepsis due to unspecified organism Severe sepsis shock status: without septic shock Qualified Code(s): A41.9 - Sepsis, unspecified organism; R65.20 - Severe sepsis without septic shock; J96.01 - Acute respiratory failure with hypoxia
[2019-11-21] MEDS: LEVOTHYROXINE SODIUM 125 MCG TABLET PO SCH (05:46)
[2019-11-21] MEDS: CHOLECALCIFEROL 1,000 UNITS 25 MCG TAB PO SCH (08:44)
[2019-11-21] MEDS: CYANOCOBALAMIN 500 MCG TABLET (VITAMIN B-12) PO SCH (08:45)
[2019-11-21] MEDS: CARBIDOPA/LEVODOPA 25/100MG TAB PO SCH ×3 (08:45→18:27)
[2019-11-21] MEDS: ASCORBIC ACID 500 MG TAB PO SCH (08:45)
[2019-11-21] MEDS: ATORVASTATIN 40 MG TAB PO SCH (08:45)
[2019-11-21] MEDS: ASPIRIN 81 MG ECTAB PO SCH (08:45)
[2019-11-21] MEDS: VENLAFAXINE HCL XR 75 MG CAPXR PO SCH (08:45)
[2019-11-21] MEDS: CALCIUM ACETATE 667 MG CAP/TAB PO SCH ×3 (08:45→18:27)
[2019-11-21] MEDS: FERROUS SULFATE 325 MG TAB PO SCH (08:45)
[2019-11-21] MEDS: AMLODIPINE BESYLATE 5 MG TAB PO SCH (08:45)
[2019-11-21] MEDS: INSULIN ASPART 100 UNITS/ML 3 ML PEN SC SCH ×4 (08:46→21:15)
[2019-11-21] MEDS: HEPARIN SOD 5,000 UNIT/0.5 ML VIAL SQ SCH ×2 (08:46→21:18)
--- NOTE | 2019-11-21 09:30 | Hospitalist Progress Note ---
Date of Service November 21, 2019 Assessment & Plan (1) AMS (altered mental status): AMS Likely multifactorial Possible Metabolic encephalopathy from sepsis from aspiration Other possibilities include possible medication, considering report of family not being aware of decreased lyrica dose from last hospitalization (per H/P) Other possibility is CVA Mental status back to baseline Acute hypoxic respiratory failure from aspiration, currently resolved. Now on room air For CVA, neurology recommendations noted. Meclizine, oxybutynin, mirapex had been discontinued (2) Acute on chronic respiratory failure with hypoxemia: Likely related to aspiration pneumonia during episode of confusion related to initial dialysis treatment. Extubated and Chest tube also removed on 11/12. For MRSA in sputum cx, Patient was on ceftaroline Appreciate ID recommendations Leukocytosis improved CXR from 11/17/19 - no evidence of focal pulm consolidation. No pneumothorax Will get last dose of vanc with HD on friday (3) Acute ischemic stroke: Continue aspirin 162mg daily per neuro Pravastatin was switched to Lipitor. Neurologist recommendations noted (4) Chronic diastolic heart failure: Chronic diastolic dysfunction with pulmonary congestion 2/2 ESRD. Torsemide held and fluid management with HD. (5) ESRD (end stage renal disease) on dialysis: Recently started dialysis with possible aspiration pneumonia as a result of nausea and vomiting after first HD session. Nephro on board Getting HD while inpatient (6) Aspiration pneumonia: As above (7) Acute UTI: Klebsiella. Treated (8) Pneumothorax on right: Chest tube removed Suture at site removed yesterday Pneumothorax resolved (9) Sepsis with acute hypoxic respiratory failure: 2/2 Aspiration pneumonia. Resuscitated and breathing independently now. As above (10) Morbid obesity: (11) DM type 2 (diabetes mellitus, type 2): Cont insulin sliding scale while inpatient (12) Leukocytosis: As above. (13) DVT prophylaxis: heparin Full Code Dispo-cont PCU monitoring. Per Dr Guillen, refuses DNR status and refuses SNF. Patient's had refused other SNF and wanted only [facility] per CM Informed by RN yesterday evening that stated [facility] appeal was denied Patient's does not want to take her home or to SNF. He insists he wants [facility]. He stated the initial appeal was denied but he is working on the next level of appeal process and will hear back in about 3 days or so CM aware Admission and Anticipated Discharge Date Admission Date: November 10, 2019 Subjective Patient seen and examined Denied any complaints Physical Exam Constitutional: + well hydrated and + obese; no acute distress Eyes: PERRL, conjunctivae normal, anicteric sclerae ENMT: external ear and nose normal, oropharynx normal Respiratory: normal respiratory effort, lungs clear to auscultation Cardiovascular: RRR, no murmur, no edema Gastrointestinal (Abdomen): normal bowel sounds, soft, nontender, no hepatosplenomegaly Neurologic: PERRL, EOMI, accommodation nl, no face palsy, no dysarthria Psychiatric: A+Ox3, euthymic affect Results & Data Results & Data ([facility]) Vital Signs (Past 12 Hours) Vital Signs Temp Pulse Resp BP Pulse Ox 11/21/19 08:20 36.8 C 60 18 116/70 90 11/20/19 23:00 37.1 C 56 L 20 104/65 92 Laboratory Results Laboratory Results - last 24 hr 11/20/19 11/20/19 11/20/19 11:56 17:00 20:15 POC Glucose 121 H 107 H 135 H 11/21/19 07:43 POC Glucose 122 H (1) AMS (altered mental status) Altered mental status type: somnolence Qualified Code(s): R40.0 - Somnolence (2) Aspiration pneumonia Aspiration pneumonia type: due to vomit Laterality: bilateral Lung location: lower lobe of lung Qualified Code(s): J69.0 - Pneumonitis due to inhalation of food and vomit (3) Sepsis with acute hypoxic respiratory failure Sepsis type: sepsis due to unspecified organism Severe sepsis shock status: without septic shock Qualified Code(s): A41.9 - Sepsis, unspecified organism; R65.20 - Severe sepsis without septic shock; J96.01 - Acute respiratory failure with hypoxia
[2019-11-22] MEDS: LEVOTHYROXINE SODIUM 125 MCG TABLET PO SCH (05:43)
[2019-11-22] MEDS: CARBIDOPA/LEVODOPA 25/100MG TAB PO SCH ×3 (07:49→17:08)
[2019-11-22] MEDS: VENLAFAXINE HCL XR 75 MG CAPXR PO SCH (07:50)
[2019-11-22] MEDS: CHOLECALCIFEROL 1,000 UNITS 25 MCG TAB PO SCH (07:50)
[2019-11-22] MEDS: FERROUS SULFATE 325 MG TAB PO SCH (07:51)
[2019-11-22] MEDS: ATORVASTATIN 40 MG TAB PO SCH (07:51)
[2019-11-22] MEDS: CYANOCOBALAMIN 500 MCG TABLET (VITAMIN B-12) PO SCH (07:51)
[2019-11-22] MEDS: ASPIRIN 81 MG ECTAB PO SCH (07:52)
[2019-11-22] MEDS: AMLODIPINE BESYLATE 5 MG TAB PO SCH (07:52)
[2019-11-22] MEDS: ASCORBIC ACID 500 MG TAB PO SCH (07:52)
[2019-11-22] MEDS: CALCIUM ACETATE 667 MG CAP/TAB PO SCH ×3 (07:53→17:08)
[2019-11-22] MEDS: INSULIN ASPART 100 UNITS/ML 3 ML PEN SC SCH ×2 (07:54→11:57)
[2019-11-22] MEDS: HEPARIN SOD 5,000 UNIT/0.5 ML VIAL SQ SCH ×2 (07:54→20:08)
--- NOTE | 2019-11-22 08:37 | Hospitalist Progress Note ---
Date of Service November 22, 2019 Assessment & Plan (1) AMS (altered mental status): AMS Likely multifactorial Possible Metabolic encephalopathy from sepsis from aspiration Other possibilities include possible medication, considering report of family not being aware of decreased lyrica dose from last hospitalization (per H/P) Other possibility is CVA Mental status back to baseline Acute hypoxic respiratory failure from aspiration, currently resolved. Now on room air For CVA, neurology recommendations noted. Meclizine, oxybutynin, mirapex had been discontinued Patient has had limited ambulation/transfers and LE mobility. PT recommends SNF but wants patient to go to [facility] Continue PT while inpatient (2) Acute on chronic respiratory failure with hypoxemia: Likely related to aspiration pneumonia during episode of confusion related to initial dialysis treatment. Extubated and Chest tube also removed on 11/12. For MRSA in sputum cx, Patient was on ceftaroline Appreciate ID recommendations Leukocytosis improved CXR from 11/17/19 - no evidence of focal pulm consolidation. No pneumothorax Vanc level today is 19, still therapeutic Got HD yesterday. No plan for HD today. Spoke with pharm. No need for continued vancomycin dose since today was supposed to be last day (3) Acute ischemic stroke: Continue aspirin 162mg daily per neuro Pravastatin was switched to Lipitor. (4) Chronic diastolic heart failure: Chronic diastolic dysfunction with pulmonary congestion 2/2 ESRD. Torsemide held and fluid management with HD. (5) ESRD (end stage renal disease) on dialysis: Recently started dialysis with possible aspiration pneumonia as a result of nausea and vomiting after first HD session. Nephro on board Getting HD while inpatient (6) Aspiration pneumonia: As above (7) Acute UTI: Klebsiella. Treated (8) Pneumothorax on right: Chest tube removed Suture at site removed yesterday Pneumothorax resolved (9) Sepsis with acute hypoxic respiratory failure: 2/2 Aspiration pneumonia. Resuscitated and breathing independently now. As above (10) Morbid obesity: (11) DM type 2 (diabetes mellitus, type 2): Cont insulin sliding scale while inpatient (12) Leukocytosis: As above. (13) DVT prophylaxis: heparin Full Code Dispo-cont PCU monitoring. Per Dr Guillen, refuses DNR status and refuses SNF. Patient's had refused other SNF and wanted only [facility] per CM Patient's does not want to take her home or to SNF. He insists he wants [facility]. He stated the initial appeal was denied but he is working on the next level of appeal process and will hear back in about 3 days or so Will follow up with CM and about status of this tomorrow Admission and Anticipated Discharge Date Admission Date: November 10, 2019 Subjective Patient seen and examined Reports no complaints Physical Exam Constitutional: + well hydrated and + obese; no acute distress Eyes: PERRL, conjunctivae normal, anicteric sclerae ENMT: external ear and nose normal, oropharynx normal Respiratory: normal respiratory effort, lungs clear to auscultation Cardiovascular: RRR, no murmur, no edema Gastrointestinal (Abdomen): normal bowel sounds, soft, nontender, no he patosplenomegaly Musculoskeletal: Power is 3/5 in lower extremities Neurologic: PERRL, EOMI, accommodation nl, no face palsy, no dysarthria AOX3, hearing deficits, occasional slow to respond Psychiatric: A+Ox3, euthymic affect Results & Data Results & Data ([facility]) Vital Signs (Past 12 Hours) Vital Signs Temp Pulse Resp BP Pulse Ox 11/22/19 07:24 36.8 C 66 18 113/71 97 11/21/19 22:00 37.1 C 65 18 115/66 91 Laboratory Results Laboratory Results - last 24 hr 11/21/19 11/21/19 11/21/19 11:59 18:23 20:25 POC Glucose 119 H 94 127 H Random Vancomycin 11/22/19 11/22/19 07:06 07:34 POC Glucose 112 H Random Vancomycin 19.1 (1) AMS (altered mental status) Altered mental status type: somnolence Qualified Code(s): R40.0 - Somnolence (2) Aspiration pneumonia Aspiration pneumonia type: due to vomit Laterality: bilateral Lung location: lower lobe of lung Qualified Code(s): J69.0 - Pneumonitis due to inhalation of food and vomit (3) Sepsis with acute hypoxic respiratory failure Sepsis type: sepsis due to unspecified organism Severe sepsis shock status: without septic shock Qualified Code(s): A41.9 - Sepsis, unspecified organism; R65.20 - Severe sepsis without septic shock; J96.01 - Acute respiratory failure with hypoxia
--- NOTE | 2019-11-22 08:58 | Pharmacy Report ---
Pharmacy Abx Dose Short Note - Date of Service November 22, 2019 - Assessment & Plan Assessment 74 year old F receiving IV Vancomycin for treatment of MRSA pneumonia Day # 9 of antimicrobial therapy. * Initially given Vancomycin on 11/11/19, switched to Ceftriaxone 11/11-11/13, then Ceftaroline 11/13-11/18; finally Vancomyin was restarted on 11/18 * Patient with ESRD on HD; last HD session was yesterday, 11/20 * Last Vancomycin dose of 1750mg (~17mg/kg) IV was given on 11/18 @ 1600 * Random level on 11/19 AM was 30.3 mg/dL, supratherapeutic following Vancomycin dose given evening prior Plan Vancomycin * Random level of 19.1 mcg/mL is therapeutic * Goal trough level for pneumonia : 15 to 20 mcg/mL * No HD session planned today * Per Dr. Gutierrez, today is last day of Vancomycin. Patient does not need any additional doses as she has been adequately treated with MRSA pneumonia. Pharmacy will continue to follow and will adjust dose/frequency as necessary. Thank you.
--- NOTE | 2019-11-22 13:38 | Progress Notes ---
DATE: 11/22/2019 NEPHROLOGY PROGRESS NOTE SUBJECTIVE: The patient appears to be fairly comfortable at this time, does not have any acute symptoms. Mental status also seems to be improving. She had dialysis yesterday without any problem. OBJECTIVE: VITAL SIGNS: Blood pressure 113/71, pulse rate 66, temperature 36.8, 97% on room air. HEENT: Mucous membranes moist. NECK: Supple. No jugular venous distention. CHEST: Bilaterally clear to auscultation. CARDIOVASCULAR: S1, S2 regular. ABDOMEN: Soft, nontender. EXTREMITIES: Show no edema. LABORATORY TEST: From this morning was reviewed in detail and is essentially unremarkable. ASSESSMENT AND PLAN: A 74-year-old female with end-stage renal disease, on chronic hemodialysis Friday, Friday, Friday, admitted with altered mental status as well as [id number] respiratory failure with hypoxemia. End-stage renal disease: Her next dialysis will be Friday. At this time, she does not appear to be in any fluid overload. She has not had any renal panel done for many days, I will order one for tomorrow.
[2019-11-23] MEDS: LEVOTHYROXINE SODIUM 125 MCG TABLET PO SCH (06:15)
[2019-11-23 07:31] LABS: BUN Creatinine Ratio 6.5 (10-20); Calcium 8.4 mg/dl (8.5-10.1); Est GFR (African American) 7.7; Est GFR (Non-African American) 6.7; Potassium 4.3 mmol/L (3.5-5.1)
[2019-11-23] MEDS: CALCIUM ACETATE 667 MG CAP/TAB PO SCH ×3 (08:39→17:04)
[2019-11-23] MEDS: CHOLECALCIFEROL 1,000 UNITS 25 MCG TAB PO SCH (08:39)
[2019-11-23] MEDS: ATORVASTATIN 40 MG TAB PO SCH (08:40)
[2019-11-23] MEDS: VENLAFAXINE HCL XR 75 MG CAPXR PO SCH (08:40)
[2019-11-23] MEDS: AMLODIPINE BESYLATE 5 MG TAB PO SCH (08:40)
[2019-11-23] MEDS: ASCORBIC ACID 500 MG TAB PO SCH (08:40)
[2019-11-23] MEDS: FERROUS SULFATE 325 MG TAB PO SCH (08:40)
[2019-11-23] MEDS: ASPIRIN 81 MG ECTAB PO SCH (08:41)
[2019-11-23] MEDS: CYANOCOBALAMIN 500 MCG TABLET (VITAMIN B-12) PO SCH (08:41)
[2019-11-23] MEDS: CARBIDOPA/LEVODOPA 25/100MG TAB PO SCH ×3 (08:41→17:04)
[2019-11-23] MEDS: HEPARIN SOD 5,000 UNIT/0.5 ML VIAL SQ SCH ×3 (08:42→20:51)
--- NOTE | 2019-11-23 09:02 | Hospitalist Progress Note ---
Date of Service November 23, 2019 Assessment & Plan (1) AMS (altered mental status): AMS Likely multifactorial Possible Metabolic encephalopathy from sepsis from aspiration Other possibilities include possible medication, considering report of family not being aware of decreased lyrica dose from last hospitalization (per H/P) Other possibility is CVA Mental status back to baseline Acute hypoxic respiratory failure from aspiration, currently resolved. Now on room air For CVA, neurology recommendations noted. Meclizine, oxybutynin, mirapex had been discontinued Patient has had limited ambulation/transfers and LE mobility. PT recommends SNF but wants patient to go to [facility] Continue PT while inpatient (2) Acute on chronic respiratory failure with hypoxemia: Likely related to aspiration pneumonia during episode of confusion related to initial dialysis treatment. Extubated and Chest tube also removed on 11/12. For MRSA in sputum cx, Patient was on ceftaroline Appreciate ID recommendations Leukocytosis improved CXR from 11/17/19 - no evidence of focal pulm consolidation. No pneumothorax Completed antibiotics (3) Acute ischemic stroke: Continue aspirin 162mg daily per neuro Pravastatin was switched to Lipitor. (4) Chronic diastolic heart failure: Chronic diastolic dysfunction with pulmonary congestion 2/2 ESRD. Torsemide held and fluid management with HD. (5) ESRD (end stage renal disease) on dialysis: Recently started dialysis with possible aspiration pneumonia as a result of nausea and vomiting after first HD session. Nephro on board Getting HD while inpatient (6) Aspiration pneumonia: As above (7) Acute UTI: Klebsiella. Treatment completed (8) Pneumothorax on right: Chest tube removed Pneumothorax resolved (9) Sepsis with acute hypoxic respiratory failure: 2/2 Aspiration pneumonia. Resuscitated and breathing independently now. As above (10) Morbid obesity: (11) DM type 2 (diabetes mellitus, type 2): Cont insulin sliding scale while inpatient (12) Leukocytosis: As above. (13) DVT prophylaxis: heparin Full Code Dispo-cont PCU monitoring. Patient's had refused other SNF and wanted only [facility] CM Patient's does not want to take her home or to SNF. He insists he wants [facility]. He stated the initial appeal was denied but he is working on the next level of appeal process and will hear back in about 3 days or so Awaiting outcome of husbands appeal Per patch setter, wants to change HD center. This change will need to be completed and new HD center will confirm they will be able to do HD on next HD day following discharge if patient is discharged home with home health Admission and Anticipated Discharge Date Admission Date: November 10, 2019 Subjective Patient seen and examined Denied any complaints today Physical Exam Constitutional: + well hydrated and + obese; no acute distress Eyes: PERRL, conjunctivae normal, anicteric sclerae ENMT: external ear and nose normal, oropharynx normal Respiratory: normal respiratory effort, lungs clear to auscultation Cardiovascular: RRR, no murmur, no edema Gastrointestinal (Abdomen): normal bowel sounds, soft, nontender, no hepatosplenomegaly Musculoskeletal: Power is 3/5 in lower extremities Neurologic: PERRL, EOMI, accommodation nl, no face palsy, no dysarthria Psychiatric: A+Ox3, euthymic affect Results & Data Results & Data ([facility]) Vital Signs (Past 12 Hours) Vital Signs Temp Pulse Resp BP Pulse Ox 11/23/19 07:58 36.8 C 64 18 123/75 91 11/22/19 22:44 37.0 C 63 20 113/67 94 (1) AMS (altered mental status) Altered mental status type: somnolence Qualified Code(s): R40.0 - Somnolence (2) Aspiration pneumonia Aspiration pneumonia type: due to vomit Laterality: bilateral Lung location: lower lobe of lung Qualified Code(s): J69.0 - Pneumonitis due to inhalation of food and vomit (3) Sepsis with acute hypoxic respiratory failure Sepsis type: sepsis due to unspecified organism Severe sepsis shock status: without septic shock Qualified Code(s): A41.9 - Sepsis, unspecified organism; R65.20 - Severe sepsis without septic shock; J96.01 - Acute respiratory failure with hypoxia
[2019-11-23 14:12] LABS: Basophils # (auto) 0.03 K/uL (0-0.2); Basophils % (auto) 0.3 %; Eosinophils % (auto) 6.9 %; Hematocrit (blood only) 28.6 % (37-47); Immature Granulocytes # (auto) 0.17 K/uL (0.00-0.02); Immature Granulocytes % (auto) 1.5 %; Lymphocytes # (auto) 1.17 K/uL (1.2-3.4); Lymphocytes % (auto) 10.1 %; Mean Corpuscular Hemoglobin 27.8 pg (25-34); Mean Corpuscular Hgb Conc 31.5 g/dL (32-36); Mean Corpuscular Volume 88.3 fL (80-100); Mean Platelet Volume 10.3 fL (7.4-10.4); Monocytes % (auto) 14.6 %; Neutrophils # (auto) 7.76 K/uL (1.4-6.5); Neutrophils % (auto) 66.6 %; Platelet Count 386 K/uL (130-400); RDW Coefficient of Variation 16.5 % (11.5-14.5); RDW Standard Deviation 53.1 fL (36.4-46.3); Red Blood Count 3.24 M/uL (4.2-5.4); White Blood Count 11.63 K/uL (4.8-10.8)
--- NOTE | 2019-11-23 15:15 | Communication Note ---
Date of Service: November 23, 2019 Pt and wish to dialyze after d/c at [facility]; they do not wish to continue at [facility]. CM, hospitalist had not been made aware of this as plan had been for d/c to [facility]. now that [facility] d/c not happening, need to move on transfer to [facility] She will dialyze on TRS[facility]. This dialysis unit cannot do intake of new pts on Saturdays so very important to move with paperwork to see if we can get her there on for treatment in [place]. Faxed CMgt missing dialysis / hepatitis serologies. Appreciate CM efforts to move forward on this dialysis center transfer. [facility] aware of plan, awaiting paperwork. I will continue as her machine ii trimmer.
[2019-11-24] MEDS: LEVOTHYROXINE SODIUM 125 MCG TABLET PO SCH (06:34)
[2019-11-24] MEDS: CARBIDOPA/LEVODOPA 25/100MG TAB PO SCH ×3 (08:04→17:35)
[2019-11-24] MEDS: ATORVASTATIN 40 MG TAB PO SCH (08:04)
[2019-11-24] MEDS: CALCIUM ACETATE 667 MG CAP/TAB PO SCH ×3 (08:04→17:35)
[2019-11-24] MEDS: ASPIRIN 81 MG ECTAB PO SCH (08:04)
[2019-11-24] MEDS: FERROUS SULFATE 325 MG TAB PO SCH (08:04)
[2019-11-24] MEDS: CHOLECALCIFEROL 1,000 UNITS 25 MCG TAB PO SCH (08:04)
[2019-11-24] MEDS: AMLODIPINE BESYLATE 5 MG TAB PO SCH (08:05)
[2019-11-24] MEDS: HEPARIN SOD 5,000 UNIT/0.5 ML VIAL SQ SCH (08:05)
[2019-11-24] MEDS: VENLAFAXINE HCL XR 75 MG CAPXR PO SCH (08:05)
[2019-11-24] MEDS: CYANOCOBALAMIN 500 MCG TABLET (VITAMIN B-12) PO SCH (08:05)
[2019-11-24] MEDS: ASCORBIC ACID 500 MG TAB PO SCH (08:05)
--- NOTE | 2019-11-24 09:04 | Hospitalist Progress Note ---
Date of Service November 24, 2019 Assessment & Plan (1) AMS (altered mental status): AMS Likely multifactorial Possible Metabolic encephalopathy from sepsis from aspiration Other possibilities include possible medication, considering report of family not being aware of decreased lyrica dose from last hospitalization (per H/P) Other possibility is CVA Mental status back to baseline Acute hypoxic respiratory failure from aspiration, currently resolved. Now on room air For CVA, neurology recommendations noted. Meclizine, oxybutynin, mirapex had been discontinued Patient has had limited ambulation/transfers and LE mobility. PT recommends SNF but wants patient to go to [facility], however rehab was denied and plan is to discharge patient home with home health Continue PT while inpatient (2) Acute on chronic respiratory failure with hypoxemia: Likely related to aspiration pneumonia during episode of confusion related to initial dialysis treatment. Extubated and Chest tube also removed on 11/12. For MRSA in sputum cx, Patient was treated with IV vancomycin and Zosyn, and then also on ceftaroline Appreciate ID recommendations Leukocytosis improved CXR from 11/17/19 - no evidence of focal pulm consolidation. No pneumothorax Completed antibiotics (3) Acute ischemic stroke: Continue aspirin 162mg daily per neuro Pravastatin was switched to Lipitor. (4) Chronic diastolic heart failure: Chronic diastolic dysfunction with pulmonary congestion 2/2 ESRD. Torsemide held and fluid management with HD. (5) ESRD (end stage renal disease) on dialysis: Recently started dialysis with possible aspiration pneumonia as a result of nausea and vomiting after first HD session. Nephro on board Getting HD while inpatient (6) Aspiration pneumonia: As above (7) Acute UTI: Klebsiella. Treatment completed (8) Pneumothorax on right: Chest tube removed Pneumothorax resolved (9) Sepsis with acute hypoxic respiratory failure: 2/2 Aspiration pneumonia. Resuscitated and breathing independently now. As above (10) Morbid obesity: (11) DM type 2 (diabetes mellitus, type 2): Cont insulin sliding scale while inpatient (12) Leukocytosis: As above. Recommend to repeat CBC as outpatient. (13) DVT prophylaxis: heparin Full Code Patient's had refused other SNF and wanted only [facility] per CM Patient's does not want to take her home or to SNF. He insists he wants [facility]. He stated the initial appeal was denied but he is working on the next level of appeal process and will hear back in about 3 days or so Awaiting outcome of husbands appeal Per acrobatic dancer, wants to change HD center. This change will need to be completed and new HD center will confirm they will be able to do HD on next HD day following discharge if patient is discharged home with home health Today, November 24, 2019, patient and her decided to be discharged home with home health. A new dialysis center was also set up at [facility], patient has an appointment tomorrow November 25, 2019. Patient will need COVID 19 test done prior to discharge Admission and Anticipated Discharge Date Admission Date: November 10, 2019 Subjective Patient is currently lying in bed, in acute distress. No acute events ov ernight. She is able to answer questions appropriately however she is very hard of hearing, occasionally she is slow to response. This seems to be however at her baseline. Patient herself denies any fevers, chills, chest pain, shortness of breath, abdominal pain, nausea or vomiting. She is inquiring about going home, says that she has been here since November 09. He is recommended that she would go until SNF, however she and her would prefer [facility] which was denied, and therefore plan to discharge patient home. They (patient and her ) requested a different dialysis center, I talked to the patient today, and reinforced that she has to have her dialysis done tomorrow. Review of Systems Review of Systems: All systems reviewed & are unremarkable except as noted in HPI & below Constitutional: no fever and no chills Respiratory: no cough and no dyspnea Cardiovascular: no chest pain and no palpitations Gastrointestinal: no abdominal pain, no nausea and no vomiting Physical Exam Physical Exam: Constitutional: Elderly obese female, lying in bed, in no acute distress Eyes: PERRL, conjunctivae normal, anicteric sclerae ENMT: external ear and nose normal, oropharynx normal Respiratory: normal respiratory effort, lungs clear to auscultation Cardiovascular: RRR, no murmur, no edema Gastrointestinal (Abdomen): normal bowel sounds, soft, nontender to palpation Neurologic: PERRL, EOMI, no face palsy, no dysarthria, moves extremities spontaneously Psychiatric: A+Ox3, euthymic affect Results & Data Results & Data ([facility]) Vital Signs (Past 12 Hours) Vital Signs Temp Pulse Resp BP Pulse Ox 11/24/19 07:07 36.8 C 79 20 142/76 H 94 09/08/20 23:25 36.4 C L 59 L 18 134/78 93 Laboratory Results 11/24/19 11/23/19 11/23/19 Range/Units 07:35 20:45 16:28 WBC (4.8-10.8) K/uL RBC (4.2-5.4) M/uL Hgb (12.0-16.0) g/dL Hct (37-47) % MCV (80-100) fL MCH (25-34) pg MCHC (32-36) g/dL RDW Std Deviation (36.4-46.3) fL RDW Coeff of Bhavin (11.5-14.5) % Plt Count (130-400) K/uL MPV (7.4-10.4) fL Immature Gran % (Auto) % Neut % (Auto) % Lymph % (Auto) % Kay % (Auto) % Eos % (Auto) % Baso % (Auto) % Neut # (Auto) (1.4-6.5) K/uL Lymph # (Auto) (1.2-3.4) K/uL Kay # (Auto) (0.11-0.59) K/uL Eos # (Auto) (0-0.5) K/uL Baso # (Auto) (0-0.2) K/uL Immature Gran # (Auto) (0.00-0.02) K/uL POC Glucose 113 H 119 H 112 H (70-99) mg/dl 11/23/19 11/23/19 Range/Units 14:00 11:40 WBC 11.63 H (4.8-10.8) K/uL RBC 3.24 L (4.2-5.4) M/uL Hgb 9.0 L (12.0-16.0) g/dL Hct 28.6 L (37-47) % MCV 88.3 (80-100) fL MCH 27.8 (25-34) pg MCHC 31.5 L (32-36) g/dL RDW Std Deviation 53.1 H (36.4-46.3) fL RDW Coeff of Bhavin 16.5 H (11.5-14.5) % Plt Count 386 (130-400) K/uL MPV 10.3 (7.4-10.4) fL Immature Gran % (Auto) 1.5 % Neut % (Auto) 66.6 % Lymph % (Auto) 10.1 % Kay % (Auto) 14.6 % Eos % (Auto) 6.9 % Baso % (Auto) 0.3 % Neut # (Auto) 7.76 H (1.4-6.5) K/uL Lymph # (Auto) 1.17 L (1.2-3.4) K/uL Kay # (Auto) 1.70 H (0.11-0.59) K/uL Eos # (Auto) 0.80 H (0-0.5) K/uL Baso # (Auto) 0.03 (0-0.2) K/uL Immature Gran # (Auto) 0.17 H (0.00-0.02) K/uL POC Glucose 126 H (70-99) mg/dl Medications Administered Current Inpatient Medications Albuterol (Albuterol 0.083% Nebu Soln 3 Ml Vial) 2.5 mg NEB Q6R PRN PRN Reason: Wheezing Stop: 12/10/19 22:44 Last Admin: 11/11/19 12:42 Dose: 2.5 mg Documented by: Amlodipine Besylate (Amlodipine Besylate 5 Mg Tab) 5 mg PO QAM [facility] Stop: 12/12/19 09:59 Last Admin: 11/24/19 08:05 Dose: 5 mg Documented by: Ascorbic Acid (Ascorbic Acid 500 Mg Tab) 500 mg PO DAILY [facility] Stop: 12/16/19 08:59 Last Admin: 11/24/19 08:05 Dose: 500 mg Documented by: Aspirin (Aspirin 81 Mg Ectab) 162 mg PO DAILY [facility] Stop: 12/18/19 08:59 Last Admin: 11/24/19 08:04 Dose: 162 mg Documented by: Atorvastatin Calcium (Atorvastatin 40 Mg Tab) 80 mg PO QAM [facility] Stop: 12/16/19 08:59 Last Admin: 11/24/19 08:04 Dose: 80 mg Documented by: Calcium Acetate (Calcium Acetate 667 Mg Cap/Tab) 667 mg PO TIDM [facility] Stop: 12/16/19 07:59 Last Admin: 11/24/19 08:04 Dose: 667 mg Documented by: Carbidopa/Levodopa (Carbidopa/Levodopa 25/100mg Tab) 1 tab PO TIDM [facility] Stop: 12/12/19 16:59 Last Admin: 11/24/19 08:04 Dose: 1 tab Documented by: Cyanocobalamin (Cyanocobalamin 500 Mcg Tablet (Vitamin B-12)) 1,000 mcg PO QAM [facility] Stop: 12/16/19 08:59 Last Admin: 11/24/19 08:05 Dose: 1,000 mcg Documented by: Dextrose (Dextrose 50% 50 Ml Syringe) 25 - 50 ml IV UD PRN; Protocol PRN Reason: Hypoglycemia Protocol Stop: 12/11/19 00:22 Ferrous Sulfate (Ferrous Sulfate 325 Mg Tab) 325 mg PO DAILY [facility] Stop: 12/16/19 08:59 Last Admin: 11/24/19 08:04 Dose: 325 mg Documented by: Glucagon (Glucagon For Inj 1 Mg Vial) 1 mg SQ UD PRN; Protocol PRN Reason: Hypoglycemia Protocol Stop: 12/11/19 00:22 Glucose (Glucose 10 Tabs/Tube) 4 - 8 tabs PO UD PRN; Protocol PRN Reason: Hypoglycemia Protocol Stop: 12/11/19 00:22 Glucose (Glucose 40% Gel 15 Gm Tube) 15 - 30 gm PO UD PRN; Protocol PRN Reason: Hypoglycemia Protocol Stop: 12/11/19 00:22 Heparin Sodium (Porcine) (Heparin Sod 5,000 Unit/0.5 Ml Vial) 5,000 units SQ Q12 [facility] Stop: 12/11/19 20:59 Last Admin: 11/24/19 08:05 Dose: 5,000 units Documented by: Promethazine HCl 12.5 mg/ (Sodium Chloride) 50.5 mls @ 202 mls/hr IV Q6H PRN PRN Reason: Nausea And Vomiting Stop: 12/10/19 22:15 Isosorbide Mononitrate (Isosorbide Kay Extended Rel 30 Mg Tabcr) 30 mg PO DAILY [facility] Stop: 12/11/19 08:59 Last Admin: 11/12/19 10:26 Dose: Not Given Documented by: Levothyroxine Sodium (Levothyroxine Sodium 125 Mcg Tablet) 125 mcg PO DAILYBB [facility]; Protocol Stop: 12/17/19 06:29 Last Admin: 11/24/19 06:34 Dose: 125 mcg Documented by: Miscellaneous (Carbohydrates For Hypoglycemia ) 15 - 30 gm PO UD PRN PRN Reason: Hypoglycemia Protocol Stop: 12/11/19 00:22 Venlafaxine HCl (Venlafaxine Hcl Xr 75 Mg Capxr) 75 mg PO QAM [facility] Stop: 12/16/19 08:59 Last Admin: 11/24/19 08:05 Dose: 75 mg Documented by: Vitamin D (Cholecalciferol 1,000 Units 25 Mcg Tab) 5,000 units PO DAILY [facility] Stop: 12/16/19 08:59 Last Admin: 11/24/19 08:04 Dose: 5,000 units Documented by: (1) AMS (altered mental status) Altered mental status type: somnolence Qualified Code(s): R40.0 - Somnolence (2) Aspiration pneumonia Aspiration pneumonia type: due to vomit Laterality: bilateral Lung location: lower lobe of lung Qualified Code(s): J69.0 - Pneumonitis due to inhalation of food and vomit (3) Sepsis with acute hypoxic respiratory failure Sepsis type: sepsis due to unspecified organism Severe sepsis shock status: without septic shock Qualified Code(s): A41.9 - Sepsis, unspecified organism; R65.20 - Severe sepsis without septic shock; J96.01 - Acute respiratory failure with hypoxia
--- NOTE | 2019-11-24 09:15 | Nephrology Progress Note ---
Date of Service November 24, 2019 Assessment & Plan (1) AMS (altered mental status): Likely multifactorial > from metabolic encephalopathy from sepsis/aspiration, medication (lyrica), acute ischemic stroke. There was also question of possible dialysis disequilibrium syndrome. Mental status has improved/stabilized (2) Aspiration pneumonia: on abtx and s/p challenging intubation; patient continues to have leukocytosis. s/p course of ceftaroline renally dosed; f/u XR w/o focal consolidation or PTX on 11/16 (3) ESRD (end stage renal disease) on dialysis: She has been tolerating dialysis well. HAD 3H TX on 11/21 (shortened d/t holiday/staffing); did tolerate 4h tx on 11/19. K has been labile but often low; will plan next tx on a 2K bath and monitor potassium weekly (if OP). next HD tomorrow as OP at [facility]: have d/w lead RN at that facility and provided OP orders; or will do here is still IP. did d/w case mgt and hospitalist > OP clinic cannot accept new pt for intake on weekend Admission and Anticipated Discharge Date Admission Date: November 10, 2019 Subjective Patient has chair time for noon tomorrow at [facility]; needs negative COVID test before she can start as outpatient at new unit>>rapid test ordered; informed later in day is again appealing her not being admitted to acute rehab. pt evaluated this am at about 0940; no sob, no pain; no voiding concerns Review of Systems Review of Systems: All systems reviewed & are unremarkable except as noted in HPI & below Physical Exam Constitutional: well developed, well nourished, + obese and cooperative; no acute distress Eyes: + anicteric sclerae ENMT: Ears: no external ear abnormality Nose: no external nose abnormality Mouth: + dry oral mucous membranes Neck: no nuchal rigidity Respiratory: normal respiratory effort Auscultation: + diminished lung sounds Cardiovascular: Rate/Rhythm: regular rate and regular rhythm Extremities: no edema Gastrointestinal (Abdomen): Inspection/Auscultation: normal bowel sounds Percussion/Palpation: abdomen soft; abdomen nontender Musculoskeletal: Head/Neck/Chest: normocephalic and head atraumatic Skin: no rashes, warm and dry Neurologic: caballero, some pyschomotor delay; fine resting tremor BLE Psychiatric: A+Ox3, euthymic affect Results & Data ([facility]) Vital Signs (Past 12 Hours) Vital Signs Temp Pulse Resp BP Pulse Ox 11/24/19 07:07 36.8 C 79 20 142/76 H 94 11/23/19 23:25 36.4 C L 59 L 18 134/78 93 Laboratory Results 11/23/19 14:00 11/23/19 06:15 (1) Aspiration pneumonia Aspiration pneumonia type: due to vomit Laterality: bilateral Lung location: lower lobe of lung Qualified Code(s): J69.0 - Pneumonitis due to inhalation of food and vomit (2) AMS (altered mental status) Altered mental status type: somnolence Qualified Code(s): R40.0 - Somnolence
--- NOTE | 2019-11-24 16:13 | Discharge Summary ---
Date of Service November 24, 2019 Admission HPI Per Admitting Provider History obtained from patient, family, and records. Limited history from patient secondary to intubated state. Medical history significant for chronic diastolic heart failure (EF 50 to 55%, TTE 2019), chronic LBBB, hypertension, hyperlipidemia, COPD, RENÉ on CPAP, history PE status post anticoagulation, rheumatoid arthritis, Parkinson's disease, Mnire's disease, anxiety/mood disorder, DM 2 diet-controlled, rh eumatoid arthritis as per records, ESRD on HD, hx NAFLD, chronic anemia (baseline hemoglobin 7), history diverticulosis, history traumatic subdural hematoma as per records, past tobacco abuse. Recent confinement last month for metabolic encephalopathy attributed to worsening kidney function and home medications. Decreased Lyrica dosage on discharge. On follow-up at PCPs office 2 weeks ago, patient noted to have worsening depression symptoms and sleeping frequently as per documentation. Patient family not aware of decreased Lyrica dosage on discharge and was still giving patient dosage prior to last confinement. Patient family educated about new Lyrica dosage of 100 mg twice daily. PCP consulted [facility] psychiatry Ask a Doc regarding antidepressant medication adjustment. Psychiatrist recommended psychotherapy, possibly adding sertraline (no need for renal dose adjustment as per note) to patient's Effexor XR. Psychiatry also recommended discontinuing oxybutynin (given anticholinergic side effects) and meclizine. Unclear if recommendations communicated to patient/family. Last week patient underwent IR guided tunneled HD catheter placement at [facility] in preparation for hemodialysis to commence this week. Patient underwent first outpatient dialysis session at [facility] this afternoon. Altered mental status noted at end of dialysis session as per . Patient noted to be somnolent and hypoxemic upon arrival at the ER. O2 sats 80s on room air. Subsequent emergent endotracheal intubation done at the ER. Difficult intubation as per ER documentation. O2 sats noted to be low post intubation. A subsequent chest x-ray later showed large right pneumothorax with right lung collapse. R Chest tube subsequently placed. IV Zosyn given at the ER for aspiration pneumonia. Bloody ET secretions suctioned at the ER. Medical History as above Surgical History : Knee surgery, carpal tunnel surgery, sinus surgery, BTL, heel surgery, right foot nerve surgery, vascular procedures Family History : Diabetes, heart disease, AAA, myotonic dystrophy Personal/Social history : Past tobacco abuse, no EtOH intake, retired from [employer] work, lives with Admission Exam Per Admitting Provider GENERAL: Sedated, intubated, morbidly obese SKIN: Pallor, warm HEENT: Pale palpebral conjunctivae, no ptosis, dry buccal mucosa NECK : Supple, short neck, no tenderness CHEST : Chest tube right chest wall, decreased breath sounds, R HEART : RRR, no obvious murmurs ABDOMEN: Some distention, nontender EXTREMITIES : Minimal LE edema, no other conspicuous deformities noted NEUROLOGIC : Sedated , no facial asymmetry, gait and stance not assessed Principal Diagnosis Altered mental status Required intubation, pneumothorax UTI CKD on dialysis Discharge Exam Constitutional: Elderly obese female, lying in bed, in no acute distress Eyes: PERRL, conjunctivae normal, anicteric sclerae ENMT: external ear and nose normal, oropharynx normal Respiratory: normal respiratory effort, lungs clear to auscultation Cardiovascular: RRR, no murmur, no edema Gastrointestinal (Abdomen): normal bowel sounds, soft, nontender to palpation Neurologic: PERRL, EOMI, no face palsy, no dysarthria, moves extremities spontaneously Psychiatric: A+Ox3, euthymic affect Discharge Data Allergies Allergy/AdvReac Type Severity Reaction Status Date / Time No Known Allergies Allergy Verified 11/10/19 21:36 Consultations 11/10/19 20:16 ED Decision to Admit Stat 11/10/19 20:17 Consult Dowel Inspector Stat 11/10/19 22:16 Consult Case Management - Discharge Planning Routine Consult Dowel Inspector Routine Consult Nephrology Routine 11/10/19 23:41 Consult Case Management - Discharge Planning Routine 11/11/19 14:24 Consult Health Information Management Stat 11/15/19 09:55 Consult Palliative Care Routine 11/15/19 17:55 Consult Neurology Routine 11/18/19 07:19 Consult Infectious Diseases Routine Ordered Studies 11/10/19 16:32 CT abd pelvis wo con Stat IMPRESSION: 1. No acute process within the abdomen or pelvis on unenhanced exam. 2. Dense bilateral lower lobe consolidation, trace right pneumothorax and right- sided chest tube, better depicted on the chest CT. Please see that report for further description. CT chest wo con Stat IMPRESSION: 1. Satisfactory positioning of the endotracheal tube. 2. Trace residual right pneumothorax following chest tube insertion. Chest tube may extend within a fissure. Alternatively, this may be partly parenchymal location. Mild adjacent airspace opacity. 3. Extensive bilateral lower lobe consolidation, greater on the right. The findings may reflect pneumonia or aspiration pneumonitis. 4. Additional interstitial thickening and bilateral airspace opacities which may reflect pulmonary edema or an infectious process. 5. Stable cardiomegaly. CT head/brain wo con Stat IMPRESSION: 1. No acute intracranial findings. 2. Left periparotid infiltration which is new since CT of October 14, 2019. This favors parotitis although cellulitis could appear similar. 11/14/19 08:32 MR brain wo/w con Routine IMPRESSION: 1. Moderately motion degraded examination 2. Small focus of increased signal on diffusion-weighted images within the right frontal periventricular white matter, possibly representing a tiny acute/subacute infarct 3. No evidence of intracranial mass 4. Atrophic change and associated ventricular prominence 11/17/19 07:00 US carotid doppler BI Routine IMPRESSION: 1. Focal area of severe mixed plaque of the proximal right ICA is noted with elevated peak systolic velocities corresponding to 50-69% stenosis 2. No significant atherosclerotic plaque or hemodynamic significant stenosis of the left common or internal carotid arteries. 3. Antegrade flow of the bilateral vertebral arteries. Hospital Course (1) AMS (altered mental status): AMS Likely multifactorial Possible Metabolic encephalopathy from sepsis from aspiration Other possibilities include possible medication, considering report of family not being aware of decreased lyrica dose from last hospitalization (per H/P) Other possibility is CVA Mental status back to baseline Acute hypoxic respiratory failure from aspiration, currently resolved. Now on room air For CVA, neurology recommendations noted. Meclizine, oxybutynin, mirapex had been discontinued Patient has had limited ambulation/transfers and LE mobility. PT recommends SNF but wants patient to go to [facility], however rehab was denied and plan is to discharge patient home with home health Continue PT while inpatient (2) Acute on chronic respiratory failure with hypoxemia: Likely related to aspiration pneumonia during episode of confusion related to initial dialysis treatment. Extubated and Chest tube also removed on 11/12. For MRSA in sputum cx, Patient was treated with IV vancomycin for mrsa and Zosyn for possible aspiration, and then also on ceftaroline Appreciate ID recommendations Leukocytosis improved CXR from 11/17/19 - no evidence of focal pulm consolidation. No pneumothorax Completed antibiotics (3) Acute ischemic stroke: Continue aspirin 162mg daily per neuro Pravastatin was switched to Lipitor. (4) Chronic diastolic heart failure: Chronic diastolic dysfunction with pulmonary congestion 2/2 ESRD. Torsemide held and fluid management with HD. (5) ESRD (end stage renal disease) on dialysis: Recently started dialysis with possible aspiration pneumonia as a result of nausea and vomiting after first HD session. Nephro on board Getting HD while inpatient New HD center arranged, patient is scheduled for dialysis for tomorrow November 24 (6) Aspiration pneumonia: As above (7) Acute UTI: Klebsiella. Treatment completed (8) Pneumothorax on right: Chest tube removed Pneumothorax resolved (9) Sepsis with acute hypoxic respiratory failure: 2/2 Aspiration pneumonia. Resuscitated and breathing independently now. As above (10) Morbid obesity: (11) DM type 2 (diabetes mellitus, type 2): Cont insulin sliding scale while inpatient (12) Leukocytosis: As above. Recommend to repeat CBC as outpatient. (13) DVT prophylaxis: heparin Full Code CT head on admission showed Left periparotid infiltration which is new since CT of October 14, 2019. This favors parotitis although cellulitis could appear similar. Patient denies any complaints. Follow up as outpt Patient's had refused other SNF and [facility] CM Patient's does not want to take her home or to SNF. He insists he wants [facility]. He stated the initial appeal was denied but he is working on the next level of appeal process Awaiting outcome of husbands appeal Per webbing seamer pound net, wants to change HD center. This change will need to be completed and new HD center will confirm they will be able to do HD on next HD day following discharge if patient is discharged home with home health Today, November 24, 2019, patient and her decided to be discharged home with home health. A new dialysis center was also set up at [facility], patient has an appointment tomorrow November 25, 2019. Patient will need COVID 19 test done prior to discharge Total Time Total Time Spent Total Time Spent (In Minutes): 60 Total Time Includes: Examination of the Patient, Discharge Planning, Medication Reconciliation and Communication With Other Providers Discharge Plan Discharge Items Patient Disposition: Home - Home Health Services Reason For Visit: UNRESPONSIVE SP INTUBATION PNEUMOTHORAX Discharge Diagnosis: Altered mental status Required intubation, pneumothorax UTI CKD on dialysis Condition on Discharge: Fair Activity: Per Instructions section Non-emergency contact: Primary Care Provider and Linoleum Layer Helper Call non-emergency contact if: you have any medication questions and your symptoms worsen Follow-up/Referrals: Bella Power MD [Primary Care Provider] - 11/30/19 3:20 pm (Date & Time 11/30/2019 3:20 PM Provider Bella Rubio MD Department Internal Medicine [facility] ) Diet: Dialysis Renal Addtl Attending Provider Instructions: It is important that you follow-up tomorrow, November 24, at outpatient dialysis center, [facility], for you dialysis. It also important for you to follow-up with primary care doctor within 1 week. The appointment was scheduled for you for November 29 at 3:20 PM. At that time all the new and old medications should be reviewed in detail. It is also important for your primary care doctor to familiarize himself with even ts that happened in the hospital. Please bring all your medication bottles to your primary care doctor office for review. It is recommended by neurologist, that you take aspirin 162 mg daily, (2 aspirin (81 mg) tablets). It is also recommended by neurologist that you take Lipitor instead of pravastatin, and that you have repeat carotid artery ultrasound done in 6 months. This will be arranged by your primary care doctor. You should stop taking your diuretics/water pills (torsemide, metolazone) as now your fluid/volume is managed by dialysis. It is crucial for you to follow-up with your dialysis as prescribed. Kidney doctor/webbing seamer pound net will be closely following up with you in clinic as well. Please note that it was recommended that you only take Lyrica 100 mg twice a day. It was also recommended to stop taking Mirapex (pramipexole) as it can cause confusion in the elderly. Also stop taking oxybutynin and meclizine. Continue taking Sinemet for your Parkinson's. Recommend blood work, CBC, at your next primary care doctor's appointment. It is important to review all the medication changes with your primary care doctor, also other medication changes may need to be done by your doctor/s. Addtl Fixed Capital Clerk Provider Instructions: Risk Factors for Stroke: You can reduce your chances of stroke by working with your medical provider to adopt a healthy lifestyle. Some specific ways to lower your chance of stroke are: * If you are a smoker, now is the time to stop smoking cigarettes * If you are diabetic, improve the control of your blood sugars * Avoid excessive amounts of alcohol * Control high blood pressure * Lose weight if you are overweight * Be sure to lead an active lifestyle * Eat a healthy diet low in salt, cholesterol and fat You should know about other risk factors for stroke that you are unable to control. These include: * Age 55 years or older * Male gender * Certain racial groups: , or / * Family History of Stroke, Mini stroke or Heart Attack * Sickle Cell Disease Follow Up: It is important for you to keep your follow up appointments with your medical provider. Who to Call and When: Medical Emergencies: Call 911 immediately if you experience any of the following warning signs and symptoms of Stroke: * Sudden numbness or weakness of the face, arm or leg, especially on one side of the body * Sudden confusion, trouble speaking or understanding * Sudden trouble seeing in one or both eyes * Sudden trouble walking, dizziness, loss of balance or coordination * Sudden severe headache with no cause Do not delay calling 911 if you experience any warning signs or symptoms of a stroke. Delay in seeking medical attention may affect what treatments can be given to you. . Pending Studies at Discharge: Yes Studies:: COVID-19 test results pending Stand-Alone Forms: My [facility], Smoking Cessation Medications and DC Order Prescriptions: New atorvastatin 40 mg Tablet 80 mg PO QAM 30 Days Qty: 60 RF: 0 aspirin 81 mg Tablet,Delayed Release (Dr/Ec) 162 mg PO DAILY 30 Days Qty: 60 RF: 0 Continued amlodipine 5 mg tablet 5 mg PO QAM RF: 0 carbidopa-levodopa 25-100 mg tablet 1 tab PO TIDM RF: 0 melatonin 10 mg Capsule 10 mg PO HS RF: 0 cyanocobalamin (vitamin B-12) [Vitamin B-12] 1,000 mcg Tablet 1,000 mcg PO QAM RF: 0 levothyroxine 125 mcg tablet 125 mcg PO QAM RF: 0 terazosin 5 mg capsule 5 mg PO HS RF: 0 venlafaxine 75 mg capsule,extended release 24hr 75 mg PO QAM RF: 0 cholecalciferol (vitamin D3) [Vitamin D3] 125 mcg (5,000 unit) Tablet 125 mcg PO DAILY RF: 0 Vitron-C 65 mg iron- 125 mg Tablet,Delayed Release (Dr/Ec) 1 tab PO DAILY RF: 0 isosorbide mononitrate 30 mg tablet extended release 24 hr 30 mg PO DAILY RF: 0 calcium acetate(phosphat bind) 667 mg Capsule 667 mg PO TIDM 30 Days Qty: 90 RF: 0 pregabalin 100 mg capsule 100 mg PO BID RF: 0 Discontinued pravastatin [Pravachol] 40 mg Tablet 40 mg PO HS RF: 0 potassium chloride 20 mEq tablet,ER particles/crystals 20 meq PO QAM RF: 0 bupropion HCl 75 mg tablet 75 mg PO BID RF: 0 pramipexole 0.25 mg tablet 0.25 mg PO HS RF: 0 aspirin 81 mg Tablet,Delayed Release (Dr/Ec) 81 mg PO DAILY RF: 0 meclizine 25 mg Tablet 25 mg PO TID PRN (Reason: Dizziness) RF: 0 oxybutynin chloride 5 mg tablet extended release 24hr 5 mg PO DAILY RF: 0 metolazone 2.5 mg tablet 2.5 mg PO 3XWK RF: 0 torsemide 100 mg Tablet 100 mg PO QAM 30 Days Qty: 30 RF: 0 Betahistine tablet 16 mg PO BID RF: 0 hydralazine 25 mg tablet 25 mg PO TID RF: 0 Discharge Orders: Discharge Order (Routine); Ordered 11/24/19 Ordered By: Renan Tinajero Admission Data Admit Date/Time: 11/10/19 20:46 Attending Provider: Renan Tinajero Admit Provider: Hollis Galaviz Primary Care Provider: Bella Power Other Providers: [facility],Home Healthcare ; [facility] ; Margo Guillen ; Hollis Galaviz ; Luiz Santillan ; Attila Forman ; Erica Tobar ; Walter Baig ; Mandy Yan ; Sofia Sinclair ; Kevin Bruce ; Mae Pichardo ; Destini Choudhary ; Juan Vann ; Yoav Clark ; Ronald Chaudhry I. ; Haroon Carson II ; Marysol Melvin ; Ortega Bundy ; Betty Gutierrez I.
--- NOTE | 2019-12-02 11:05 | Coding Query ---
PRESENT ON ADMISSION QUERY To promote full compliance with coding requirements relating to pateint care, physician participation is requested in all cases of manager terminal uncertainty. Please assist us with the question(s) below: Please place an X within the parenthesis (x). The following diagnosis(es) listed in this patient's medical record require physician assistance to determine if they were present on admission (POA) or not. Please advise for each diagnosis whether it was present on admission, not present on admission, or if it was clinically undetermined. 1. Sepsis due to aspiration PNA was documented throughout the record, please clarify if it was present on admission. Thank you so much for your help! Have a great day! (x ) Present On Admission ( ) Not Present On Admission ( ) Clinically Undetermined Thank you Laurie Mendenhall *Definition of the present on admission (POA)-Present on admission is defined as present at the time the order for inpatient admission occurs. Conditions that develop during an outpatient encounter prior to a written order for inpatient admission (including emergency department, observation, or outpatient surgery) are considered present on admission. BRENDA
== END 2019-11-24 19:05 | disposition home health service (06) | DRG 871 ==
LOC: ED 16:12 → SUATTDRO 20:46 → 1E 20:46 → 2E 11-15 19:10 → 2W 11-19 18:23

== ENCOUNTER 2020-01-30 16:44 | Inpatient (IN) ==
[2020-01-30 18:12] LABS: Hematocrit (blood only) 42.5 % (37-47); Hemoglobin 13.2 g/dL (12.0-16.0); Mean Corpuscular Hemoglobin 30.5 pg (25-34); Mean Corpuscular Hgb Conc 31.1 g/dL (32-36); Mean Corpuscular Volume 98.2 fL (80-100); Mean Platelet Volume 10.6 fL (7.4-10.4); Platelet Count 267 K/uL (130-400); RDW Coefficient of Variation 20.6 % (11.5-14.5); RDW Standard Deviation 73.1 fL (36.4-46.3); Red Blood Count 4.33 M/uL (4.2-5.4); White Blood Count 29.59 K/uL (4.8-10.8)
--- NOTE | 2020-01-30 18:19 | XRay Report ---
XR chest 1V portable HISTORY: 74 years-old Female weakness acute weakness COMPARISON: Chest radiograph 01/06/2020 TECHNIQUE: Supine AP view the chest FINDINGS: Moderate cardiomegaly. Left IJ hemodialysis catheter distal tip terminates within the inferior cavoat rial junction distribution. Clear left lung. Right pleural effusion with diffuse haziness throughout the right lung. Pulmonary vascular congestion. Degenerative changes of the shoulders and spine. IMPRESSION: 1. Cardiomegaly with pulmonary vascular congestion. 2. Diffuse haziness of the right hemithorax may reflect a dependent layering pleural effusion versus asymmetric airspace disease versus asymmetric pulmonary edema. Follow-up PA and lateral views of the chest may be considered. ACT 112: Negative or not required by law. The above report was generated using voice recognition software. It may contain grammatical, syntax o r spelling errors. Electronically signed by: Arnoldo Stiles M.D. 01/30/2020 6:18 PM
[2020-01-30 18:35] LABS: Anisocytosis Present; Basophils # (auto) 0.03 K/uL (0-0.2); Basophils % (auto) 0.1 %; Eosinophils # (auto) 0.02 K/uL (0-0.5); Eosinophils % (auto) 0.1 %; Immature Granulocytes # (auto) 0.18 K/uL (0.00-0.02); Immature Granulocytes % (auto) 0.6 %; Lymphocytes # (auto) 1.91 K/uL (1.2-3.4); Lymphocytes % (auto) 6.5 %; Monocytes # (auto) 2.42 K/uL (0.11-0.59); Monocytes % (auto) 8.2 %; Neutrophils # (auto) 25.03 K/uL (1.4-6.5); Neutrophils % (auto) 84.5 %; Polychromasia 1+
[2020-01-30] MEDS ORDERED: PIPERACILL/TAZOBAC CONSULT ACTIVE PRN (18:40)
[2020-01-30] MEDS ORDERED: PIPERACILLIN/TAZOBACTAM 4.5 GM/120 ML BAG IV ONE (18:40)
[2020-01-30 18:45] LABS: Albumin Globulin Ratio 0.6 (0.9-2); Albumin Level 2.9 gm/dl (3.4-5.0); BUN Creatinine Ratio 6.5 (10-20); Bilirubin,Total 0.4 mg/dl (0.2-1); Calcium 8.4 mg/dl (8.5-10.1); Creatinine Clr Calc Pharmacy 10.2 ml/min; Est GFR (Non-African American) 7.8; Globulin 5.2 gm/dl (2.5-4.0); Magnesium 2.2 mg/dl (1.8-2.4); Potassium 3.7 mmol/L (3.5-5.1); Thyroid Stimulating Hormone 0.617 uIu/ml (0.300-4.500); Total Protein 8.1 gm/dl (6.4-8.2)
--- NOTE | 2020-01-30 18:50 | CT Scan Report ---
CT head/brain wo con CLINICAL HISTORY: 74 years-old Female with AMS. Acutely altered mental status TECHNIQUE: Multiple axial CT images of the head were obtained without contrast. A dose lowering tech nique was utilized adhering to the principles of ALARA. CT DOSE: 614.27 mGy.cm COMPARISON: Head CT 11/10/2019 FINDINGS: No acute intracranial hemorrhage, midline shift, intracranial mass, hydrocephalus, territorial ischem ia or abnormal extra-axial collection. Age-related involutional changes with ex vacuo ventriculomegal y. Mild patchy white matter hypodensities suggest chronic microvascular ischemic disease. The calvarium is intact. Small mastoid effusions. Moderate mucoperiosteal thickening of the right ma xillary sinus with moderate to severe partial opacification of the left sphenoid sinus. Soft tissues are unremarkable. Prior bilateral lens replacement. IMPRESSION: No acute intracranial abnormality. ACT 112: Negative or not required by law. The above report was generated using voice recognition software. It may contain grammatical, syntax o r spelling errors. Electronically signed by: Arnoldo Stiles M.D. 01/30/2020 6:49 PM
[2020-01-30] MEDS: DAPTOmycin 400 MG in SYRINGE 0 ML IV ONE (19:03)
[2020-01-30 22:39] LABS: Base Excess ABG 1.3 mEq/L (-9-1.8); HCO3 ABG 26 mmol/L (19-24); Oxygen Saturation ABG 95.4 % (90-95); PCO2 ABG 44 mmHg (35-46); PO2 ABG 78 mmHg (80-95)
[2020-01-30 22:40] LABS: Allen Test Pos (Pos)
[2020-01-30] MEDS ORDERED: VANCOMYCIN HCL 1,000 MG in SODIUM CHLORIDE 0.9% 250 ML IV SCH (22:53)
[2020-01-30] MEDS ORDERED: NITROGLYCERIN SL 0.4 MG/TAB TAB SL PRN (22:53)
[2020-01-30] MEDS ORDERED: VANCOMYCIN CONSULT ACTIVE PRN (22:53)
[2020-01-30] MEDS: SODIUM CHLORIDE 0.9% 1000ML 1,000 ML IV SCH (23:34)
[2020-01-30] MEDS ORDERED: GLUCAGON FOR INJ 1 MG VIAL SQ PRN (23:45)
[2020-01-30] MEDS ORDERED: CARBOHYDRATES FOR HYPOGLYCEMIA PO PRN (23:45)
[2020-01-30] MEDS ORDERED: GLUCOSE 10 TABS/TUBE PO PRN (23:45)
[2020-01-30] MEDS ORDERED: DEXTROSE 50% 50 ML SYRINGE IV PRN (23:45)
[2020-01-30] MEDS ORDERED: GLUCOSE 40% GEL 15 GM TUBE PO PRN (23:45)
[2020-01-31] MEDS ORDERED: VANCOMYCIN HCL 1,500 MG in SODIUM CHLORIDE 0.9% 500 ML IV SCH
[2020-01-31 00:52] LABS: Appearance Urine Turbid (Clear); Blood Urine 3+ (Negative); Color Urine Dark Yellow; Epithelial Cell Urine Auto >30 /lpf (0-5); Glucose Urine UA Negative (Negative); Ketones Urine Trace (Negative); Leukocyte Esterase Urine Trace (Negative); Nitrite Urine Negative (Negative); Protein Urine Trace (Negative); Specific Gravity Urine 1.025 (1.000-1.030); Urobilinogen Urine Negative (Negative)
--- NOTE | 2020-01-31 01:02 | History and Physical Report ---
DATE OF ADMISSION: 01/30/2020 CHIEF COMPLAINT: Lethargy. HISTORY OF PRESENT ILLNESS: This is a 74-year-old female with past medical history significant for end-stage renal disease, on hemodialysis, currently has left subclavian catheter; history of diabetes; hypothyroidism; hyperlipidemia; sleep apnea; COPD; hypertension; chronic heart failure with preserved ejection fraction; morbid obesity; nonalcoholic steatohepatitis; restless legs syndrome; venous stasis dermatitis of both extremities; primary Parkinson disease; Meniere disease, cochlear active; degenerative disease of nervous system; iron deficiency anemia; rheumatoid arthritis; major depression; generalized anxiety disorder; history of non-ST elevated myocardial infarction; mild neurocognitive disorder; personal history of fall; history of cerebrovascular accident. The patient lives with her . The patient had dialysis yesterday. Generally she wakes up at 7:30 in the morning, but today she was not waking up until 1:00 pm and the patient's did not wake her up because generally after dialysis she is worn out. At 1:00pm , when she opened eyes she was just staring, she was confused, and her says that whenever she is acting like that her oxygen levels are low, so he checked her pulse ox, it was in 80s and 70s. So he called the ambulance and brought in here. Currently, the patient, on 2 L she is saturating fine. Initially her blood pressure was on the lower side, but improved. Her white count was 29,000. Creatinine is 5.1. Lactate is normal at 1.6. Repeat COVID test is negative. CT of the head is unremarkable. Chest x-ray, diffuse haziness of the right hemithorax ,dependent layering pleural effusion versus asymmetric airspace disease versus asymmetric pulmonary edema. EKG is okay. The patient received daptomycin and Zosyn in the ER. Currently, patient is more alert and awake, could tell her name, could tell her date of . Complains of pain in the hands and legs. Denies any other pain, As per , there is no cough, no nausea, vomiting, no diarrhea. She did not make any urine today. She did not eat anything today. The patient is very hard of hearing, could not get complete review of systems. ALLERGIES: No known drug allergies. PAST MEDICAL HISTORY: As mentioned above. PAST SURGICAL HISTORY: Left total knee arthroplasty, carpal tunnel surgery, colonoscopy, sinus surgery, lumbosacral shots, insertion of the tunneled catheter, ligation of the oviducts, bilateral heel surgery, third toe nerve decompression. MEDICATIONS: The patient is on amlodipine 5 mg p.o. daily, aspirin 162 mg p.o. daily, atorvastatin 80 mg p.o. daily, calcium acetate as directed, carbidopa/levodopa 1 tablet p.o. t.i.d., vitamin D 125 mcg p.o. daily, vitamin B12 1000 mcg p.o. a.m., isosorbide mononitrate 30 mg p.o. daily, levothyroxine 125 mcg p.o. daily, meclizine 25 mg p.o. t.i.d. p.r.n., pregabalin 100 mg p.o. b.i.d., terazosin 5 mg at bedtime, venlafaxine 75 mg p.o. a.m. FAMILY HISTORY: Mother had myasthenia gravis, hypertension; father has diabetes, heart disorder, also had abdominal aortic aneurysm, hypertension; brother has myotonic dystrophy, diabetes; sister has myotonic dystrophy. SOCIAL HISTORY: and lives with . Former smoker, quit in 1989, smoked an average of quarter pack a day for 50 years. No alcohol use, no drug use. REVIEW OF SYSTEMS: Alert and awake, oriented to name, could tell her date of . PHYSICAL EXAMINATION: VITAL SIGNS: Temperature 36.6, pulse 196, respiratory rate 20s, blood pressure currently 119/42, oxygen 95% on 2 liters. HEENT: Pupils equal, round, and reactive to light. Oral mucosa dry. NECK: No neck masses, no carotid bruits. CARDIOVASCULAR: S1, S2 heard, regular rate and rhythm, no murmur, no gallop. RESPIRATORY SYSTEM: Normal AP diameter. No accessory muscle use. No wheezing, no crackles. ABDOMEN: Soft, bowel sounds present, nontender. No distention. CENTRAL NERVOUS SYSTEM: Alert and awake, oriented to name, could tell her date of . Answers simple questions. Moves extremities. EXTREMITIES: No edema or erythema seen. LABORATORY DATA: WBC 29.5, hemoglobin 13.2, hematocrit 42.5, platelets 267. Sodium 135, potassium 3.7, chloride 101, bicarbonate 28, BUN 33, creatinine 5.1, serum glucose 115, lactate 1.6, calcium 8.6, magnesium 2.2, total bilirubin 0.4, AST 61, ALT 14, alkaline phosphatase 151. TSH 0.6. COVID-19 rapid test negative. IMAGING DATA: CT of the head, no acute intracranial abnormality. Chest x-ray, cardiomegaly with pulmonary vascular congestion, diffuse haziness of the right hemithorax may reflect a dependent layering pleural effusion versus asymmetric airspace disease versus asymmetric pulmonary edema. EKG: Normal sinus rhythm with rate of 87, nonspecific intraventricular conduction block, QTc of 519. ASSESSMENT AND PLAN: This is a 74-year-old female with past medical history significant for end-stage renal disease, Parkinson disease, hypertension, hyperlipidemia, history of non-ST elevated myocardial infarction, history of cerebrovascular accident, history of chronic heart failure with preserved EF, presents with lethargy. 1. Lethargy. The patient had dialysis yesterday, generally is worn out after dialysis, generally wakes up at 7:30 in the morning, she did not wake up until 1:00pm and she was just confused and staring. Even on CPAP, her sats were low, in 70s and 80s at home. Her white count is elevated to 29,000 in the ER. Chest x-ray, questionable pulmonary edema versus diffuse haziness in the right hemithorax. CT of the head is unremarkable. The patient has history of lethargy in the past. In November, she was admitted with altered mental status, thought to be from sepsis and aspiration and also medications. At that time, meclizine, oxybutynin, and Mirapex had been discontinued. We will empirically start on vancomycin and Zosyn. Follow the cultures. We will follow the ABG. Her mental status is somewhat improved. Will give gentle fluids and we will also get a CT of the chest as x-ray shows some right-sided haziness. Will follow the cultures and closely monitor in the tele floor. Dialysis catheter site seems okay. Hypoxia at home on CPAP currently, saturating fine at 2 liters. We will follow the CT of the chest. 2. History of sleep apnea. Continue CPAP at bedtime. 3. History of MRSA in the sputum in the past.Abx as above. Will follow cx 4. History of cerebrovascular accident, on Lipitor and aspirin, continue same. 5. History of chronic diastolic congestive heart failure, currently on dialysis. 6. End-stage renal disease, on hemodialysis. Next dialysis on Friday. Will consult nephrology. 7. History of aspiration pneumonia. We will follow the CT chest. Currently on clear liquid diet. We will get a speech evaluation. 8. History of pneumothorax on the right side. We will follow the CT chest. 9. Diabetes .Not on medication at home. Will follow HbA1c levels. We will place on insulin sliding scale. 10. Prolonged qt. to avoid qt prolonging drugs. Follow ekg in am 11. HTN On isosorbide mononitrate,, terazosin. Holding amlodipine. Monitor BP as its somewhat on lower side. 12. Hx of cva on aspirin and statin. 13. Parkinson disease. On Sinemet. 14. Hypothyroidism. Synthroid. 15. Hx of NStemi. On aspirin, statin and nitrate 16. Deep venous thrombosis prophylaxis. We will place on sequential compression devices. We will place her on heparin for now. 12. Disposition, closely monitor in tele floor, level I full code. PT and OT prior to discharge. Social service to help with discharge planning. BRENDA
--- NOTE | 2020-01-31 01:07 | Emergency Department Note ---
History of Present Illness General Chief complaint: Lethargic Stated complaint: LETHARGIC Time Seen by Provider: 01/30/20 17:01 Source: family () and RN notes reviewed Mode of arrival: EMS Limitations: altered mental status (weakness) History of Present Illness Provider complaint: Weakness, altered mental status Maximum Pain Intensity: 0 This patient is a 74-year-old female who presents emergency department with her who states she has been altered today. She had dialysis yesterday and received a full 4-1/2-hour treatment. Today he noticed that she was "glazed" and has not had anything to eat or drink. She has not taken her pills. He denies any fevers but did notice that her oxygen saturations were low in the 70s. She does not normally require oxygen now that she has begun dialysis therapy. He did have oxygen equipment in the closet from previous uses and put her on 4 L nasal cannula. He denies any pain medication in her history. She did recently have a fistula placed in the right arm. She is currently using a left subclavian dialysis catheter. Patient does have a history of aspiration. He denies any recent fevers, V/D. Last urine was yesterday morning. Home Medications Medication Instructions Recorded Confirmed Type carbidopa-levodopa 1 tab PO TIDM 08/21/18 01/30/20 History cyanocobalamin (vitamin B-12) 1,000 mcg PO QAM 08/21/18 01/30/20 History [Vitamin B-12] levothyroxine 125 mcg PO QAM 08/21/18 01/30/20 History terazosin 5 mg PO HS 04/20/19 01/30/20 History venlafaxine 75 mg PO QAM 08/15/19 01/30/20 History cholecalciferol (vitamin D3) 125 mcg PO DAILY 09/21/19 01/30/20 History [Vitamin D3] isosorbide mononitrate 30 mg PO DAILY 09/21/19 01/30/20 History pregabalin 100 mg PO BID 11/10/19 01/30/20 History aspirin 162 mg PO DAILY 01/06/20 01/30/20 History atorvastatin 80 mg PO QAM 01/06/20 01/30/20 History calcium acetate(phosphat bind) See Rx Instructions .ROUTE .COMPLEX 01/06/20 01/30/20 History Betahistine Dih See Rx Instructions .ROUTE .COMPLEX 01/30/20 01/30/20 History amlodipine 5 mg PO DAILY 01/30/20 01/30/20 History meclizine 25 mg PO TID PRN 01/30/20 01/30/20 History Allergies Allergy/AdvReac Type Severity Reaction Status Date / Time No Known Allergies Allergy Verified 01/30/20 19:19 Past Med/Surg History Medical History (Updated 02/01/20 @ 21:08 by Chio Montes De Oca MD) Chronic diastolic heart failure Depression Diabetes mellitus, type II Dyslipidemia ESRD (end stage renal disease) on dialysis Generalized anxiety disorder Goals of care, counseling/discussion HTN (hypertension) Hypothyroidism RACHEL (iron deficiency anemia) Meniere's disease RENÉ on CPAP Parkinson disease Restless leg syndrome Rheumatoid arthritis Subdural hematoma Surgical History H/O sinus surgery History of carpal tunnel surgery History of orthopedic surgery " bilat heel surgery" History of tubal ligation Hx of total knee arthroplasty "Left, Dr. 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 and A total of 10 systems reviewed and were otherwise negative Physical Exam Vital Signs Vital Signs - 24 hr 01/30/20 16:56 01/30/20 17:00 01/30/20 17:10 Temperature 36.6 C Temperature Source Oral Pulse Rate 84 88 84 Pulse Rate from SpO2 Sensor 86 84 Pulse Rhythm Regular Pulse Strength Normal Respiratory Rate 16 24 24 Respiratory Effort / Characteristics Non-Labored Respiratory Depth Normal Respiratory Pattern Regular Blood Pressure 100/47 L Blood Pressure Mean 64 Blood Pressure Position Lying Pulse Oximetry 95 94 92 Oxygen Delivery Method Nasal Cannula Nasal Cannula Oxygen Flow Rate 2 2 Sepsis Recent Fever Within 48 Hours No Sepsis New/Unexplained Change in Mental Status N/A Sepsis Action Taken by Nursing No Action Required 01/30/20 17:15 01/30/20 17:30 01/30/20 17:45 Temperature Temperature Source Pulse Rate 85 87 85 Pulse Rate from SpO2 Sensor 89 87 86 Pulse Rhythm Pulse Strength Respiratory Rate 24 24 28 H Respiratory Effort / Characteristics Respiratory Depth Respiratory Pattern Blood Pressure 106/45 L 99/60 L 91/48 L Blood Pressure Mean 56 84 55 Blood Pressure Position Pulse Oximetry 95 97 95 Oxygen Delivery Method Oxygen Flow Rate Sepsis Recent Fever Within 48 Hours Sepsis New/Unexplained Change in Mental Status Sepsis Action Taken by Nursing 01/30/20 18:00 01/30/20 18:30 01/30/20 19:14 Temperature Temperature Source Pulse Rate 88 91 H Pulse Rate from SpO2 Sensor 89 91 H 84 Pulse Rhythm Pulse Strength Respiratory Rate 18 25 H Respiratory Effort / Characteristics Respiratory Depth Respiratory Pattern Blood Pressure Blood Pressure Mean Blood Pressure Position Pulse Oximetry 95 93 95 Oxygen Delivery Method Oxygen Flow Rate Sepsis Recent Fever Within 48 Hours Sepsis New/Unexplained Change in Mental Status Sepsis Action Taken by Nursing 01/30/20 19:16 01/30/20 19:30 01/30/20 19:45 Temperature Temperature Source Pulse Rate 85 88 96 H Pulse Rate from SpO2 Sensor 85 89 94 H Pulse Rhythm Pulse Strength Respiratory Rate 25 H 23 26 H Respiratory Effort / Characteristics Respiratory Depth Respiratory Pattern Blood Pressure 96/46 L 101/48 L 104/58 L Blood Pressure Mean 59 68 73 Blood Pressure Position Pulse Oximetry 94 94 93 Oxygen Delivery Method Oxygen Flow Rate Sepsis Recent Fever Within 48 Hours Sepsis New/Unexplained Change in Mental Status Sepsis Action Taken by Nursing 01/30/20 20:00 01/30/20 20:01 01/30/20 20:16 Temperature Temperature Source Pulse Rate 100 H 96 H 101 H Pulse Rate from SpO2 Sensor 101 H 97 H 101 H Pulse Rhythm Pulse Strength Respiratory Rate 24 26 H 15 Respiratory Effort / Characteristics Respiratory Depth Respiratory Pattern Blood Pressure 105/60 Blood Pressure Mean 70 Blood Pressure Position Pulse Oximetry 92 93 95 Oxygen Delivery Method Oxygen Flow Rate Sepsis Recent Fever Within 48 Hours Sepsis New/Unexplained Change in Mental Status Sepsis Action Taken by Nursing 01/30/20 20:30 01/30/20 20:31 01/30/20 20:45 Temperature Temperature Source Pulse Rate 96 H 98 H 93 H Pulse Rate from SpO2 Sensor 97 H 97 H 92 H Pulse Rhythm Pulse Strength Respiratory Rate 15 13 23 Respiratory Effort / Characteristics Respiratory Depth Respiratory Pattern Blood Pressure 105/73 109/48 L Blood Pressure Mean 83 62 Blood Pressure Position Pulse Oximetry 93 94 93 Oxygen Delivery Method Oxygen Flow Rate Sepsis Recent Fever Within 48 Hours Sepsis New/Unexplained Change in Mental Status Sepsis Action Taken by Nursing 01/30/20 21:00 01/30/20 21:15 01/30/20 21:30 Temperature Temperature Source Pulse Rate 90 98 H 98 H Pulse Rate from SpO2 Sensor 92 H 98 H 96 H Pulse Rhythm Pulse Strength Respiratory Rate 23 27 H 25 H Respiratory Effort / Characteristics Respiratory Depth Respiratory Pattern Blood Pressure 110/61 111/59 L 111/64 Blood Pressure Mean 89 75 91 Blood Pressure Position Pulse Oximetry 94 95 94 Oxygen Delivery Method Oxygen Flow Rate Sepsis Recent Fever Within 48 Hours Sepsis New/Unexplained Change in Mental Status Sepsis Action Taken by Nursing 01/30/20 21:45 Temperature Temperature Source Pulse Rate 88 Pulse Rate from SpO2 Sensor 90 Pulse Rhythm Pulse Strength Respiratory Rate 21 Respiratory Effort / Characteristics Respiratory Depth Respiratory Pattern Blood Pressure 112/49 L Blood Pressure Mean 79 Blood Pressure Position Pulse Oximetry 93 Oxygen Delivery Method Oxygen Flow Rate Sepsis Recent Fever Within 48 Hours Sepsis New/Unexplained Change in Mental Status Sepsis Action Taken by Nursing Vital signs reviewed. General: Chronically ill-appearing 74-year-old female, in no significant distress. HEENT: No scleral icterus, facial seborrhea, PERRLA, neck supple. Atraumatic. Cardiovascular: Regular rate and rhythm, no extra sounds. Pulmonary: Clear to auscultation bilaterally, normal work of breathing. Nasal cannula oxygen in place. Abdomen: Soft, obese, nontender, nondistended, positive bowel sounds. Musculoskeletal: Atraumatic, no peripheral edema. Neurologic: Patient somnolent, hard of hearing. Skin: Warm, dry, no rash Course Administered Medications Acetaminophen (Acetaminophen 325 Mg Tab) 650 mg PO Q4H PRN PRN Reason: Pain or Fever Stop: 02/29/20 22:52 Last Admin: 01/31/20 21:02 Dose: 650 mg Documented by: [id number] Aspirin (Aspirin 81 Mg Ectab) 162 mg PO DAILY [facility] Stop: 03/01/20 08:59 Last Admin: 02/01/20 08:13 Dose: 162 mg Documented by: [id number] Admin: 01/31/20 08:43 Dose: 162 mg Documented by: [id number] Atorvastatin Calcium (Atorvastatin 40 Mg Tab) 80 mg PO QAM [facility] Stop: 03/01/20 08:59 Last Admin: 02/01/20 08:13 Dose: 80 mg Documented by: [id number] Admin: 01/31/20 08:44 Dose: 80 mg Documented by: [id number] Calcium Acetate (Calcium Acetate 667 Mg Cap/Tab) 667 mg PO TIDM PRN PRN Reason: .SNACKS Stop: 03/01/20 07:59 Last Admin: 02/01/20 08:13 Dose: 667 mg Documented by: [id number] Admin: 01/31/20 08:42 Dose: 667 mg Documented by: [id number] Carbidopa/Levodopa (Carbidopa/Levodopa 25/100mg Tab) 1 tab PO TIDM [facility] Stop: 03/01/20 07:59 Last Admin: 02/01/20 17:54 Dose: 1 tab Documented by: [id number] Admin: 02/01/20 12:26 Dose: 1 tab Documented by: [id number] Admin: 02/01/20 08:15 Dose: 1 tab Documented by: [id number] Admin: 01/31/20 17:35 Dose: 1 tab Documented by: [id number] Admin: 01/31/20 12:44 Dose: 1 tab Documented by: [id number] Admin: 01/31/20 08:43 Dose: 1 tab Documented by: [id number] Cyanocobalamin (Cyanocobalamin 500 Mcg Tablet (Vitamin B-12)) 1,000 mcg PO QAM [facility] Stop: 03/01/20 08:59 Last Admin: 02/01/20 08:14 Dose: 1,000 mcg Documented by: [id number] Admin: 01/31/20 08:43 Dose: 1,000 mcg Documented by: [id number] Sodium Chloride (Nss 1000ml) 1,000 mls @ 50 mls/hr IV .Q20H [facility] Stop: 02/29/20 22:52 Last Admin: 02/01/20 17:53 Dose: 50 mls/hr Documented by: [id number] Infusion: 02/01/20 16:01 Dose: 50 mls/hr Documented by: [id number] Admin: 01/31/20 20:01 Dose: 50 mls/hr Documented by: [id number] Infusion: 01/31/20 20:01 Dose: 0 mls/hr Documented by: [id number] Admin: 01/30/20 23:34 Dose: 50 mls/hr Documented by: [id number] Piperacillin Sod/Tazobactam (Sod 4.5 gm/ Dextrose) 120 mls @ 30 mls/hr IV Q12H [facility]; Protocol Stop: 02/07/20 03:59 Last Infusion: 02/01/20 21:02 Dose: 0 mls/hr Documented by: [id number] Admin: 02/01/20 16:30 Dose: 30 mls/hr Documented by: [id number] Infusion: 02/01/20 08:17 Dose: 0 mls/hr Documented by: [id number] Admin: 02/01/20 04:06 Dose: 30 mls/hr Documented by: [id number] Infusion: 01/31/20 21:25 Dose: 0 mls/hr Documented by: [id number] Infusion: 01/31/20 19:30 Dose: 30 mls/hr Documented by: [id number] Admin: 01/31/20 17:19 Dose: 3 mls/hr Documented by: [id number] Infusion: 01/31/20 08:46 Dose: 3 mls/hr Documented by: [id number] Admin: 01/31/20 03:04 Dose: 30 mls/hr Documented by: [id number] Insulin Aspart (Insulin Aspart 100 Units/Ml 3 Ml Pen) 0 units SC ACHS [facility] Stop: 03/01/20 07:29 Last Admin: 02/01/20 20:51 Dose: Not Given Documented by: [id number] Cosigned by: [id number] Admin: 02/01/20 16:55 Dose: Not Given Documented by: [id number] Admin: 02/01/20 12:04 Dose: Not Given Documented by: [id number] Admin: 02/01/20 08:17 Dose: Not Given Documented by: [id number] Admin: 01/31/20 21:07 Dose: Not Given Documented by: [id number] Cosigned by: [id number] Admin: 01/31/20 17:32 Dose: Not Given Documented by: [id number] Admin: 01/31/20 12:42 Dose: Not Given Documented by: [id number] Cosigned by: [id number] Admin: 01/31/20 08:41 Dose: Not Given Documented by: [id number] Isosorbide Mononitrate (Isosorbide [place] Extended Rel 30 Mg Tabcr) 30 mg PO DAILY [facility] Stop: 03/01/20 08:59 Last Admin: 02/01/20 14:23 Dose: 30 mg Documented by: [id number] Admin: 02/01/20 10:00 Dose: 30 mg Documented by: [id number] Admin: 01/31/20 08:43 Dose: 30 mg Documented by: [id number] Levothyroxine Sodium (Levothyroxine Sodium 125 Mcg Tablet) 125 mcg PO DAILYBB [facility] Stop: 03/01/20 06:29 Last Admin: 02/01/20 06:20 Dose: 125 mcg Documented by: [id number] Admin: 01/31/20 05:35 Dose: Not Given Documented by: [id number] Pregabalin (Pregabalin 100 Mg Cap) 100 mg PO BID [facility] Stop: 03/01/20 08:59 Last Admin: 02/01/20 12:25 Dose: 100 mg Documented by: [id number] Admin: 01/31/20 21:02 Dose: 100 mg Documented by: [id number] Admin: 01/31/20 10:58 Dose: 100 mg Documented by: [id number] Terazosin HCl (Terazosin Hcl 5 Mg Cap) 5 mg PO HS [facility] Stop: 03/01/20 20:59 Last Admin: 01/31/20 21:03 Dose: 5 mg Documented by: [id number] Venlafaxine HCl (Venlafaxine Hcl Xr 75 Mg Capxr) 75 mg PO QAM [facility] Stop: 03/01/20 08:59 Last Admin: 02/01/20 08:13 Dose: 75 mg Documented by: [id number] Admin: 01/31/20 08:42 Dose: 75 mg Documented by: [id number] Vitamin D (Cholecalciferol 1,000 Units 25 Mcg Tab) 5,000 units PO DAILY [facility] Stop: 03/01/20 08:59 Last Admin: 02/01/20 08:12 Dose: 5,000 units Documented by: [id number] Admin: 01/31/20 08:44 Dose: 5,000 units Documented by: [id number] Discontinued Medications Heparin Sodium (Porcine) (Heparin Sod (Porcine) 1000 Unit/Ml 10 Ml Vial) 5,000 units IV TODAY@0800 [facility] Stop: 02/01/20 18:00 Last Admin: 02/01/20 14:21 Dose: Not Given Documented by: [id number] Heparin Sodium (Porcine) (Heparin Sod (Porcine) 1000 Unit/Ml 10 Ml Vial) 1,000 units IV Q1H [facility] Stop: 02/01/20 09:01 Last Admin: 02/01/20 14:26 Dose: Not Given Documented by: [id number] Admin: 02/01/20 14:20 Dose: Not Given Documented by: [id number] Daptomycin 400 mg/ Syringe 8 mls @ 4 mls/min IV NOW ONE; Protocol Stop: 01/30/20 18:37 Last Admin: 01/30/20 19:03 Dose: 4 mls/min Documented by: [id number] Admin: 01/30/20 19:03 Dose: 4 mls/min Documented by: [id number] Piperacillin Sod/Tazobactam Sod (Zosyn) 4.5 gm in 120 mls @ 240 mls/hr IV NOW ONE Stop: 01/30/20 19:09 Last Infusion: 01/30/20 19:47 Dose: 0 mls/hr Documented by: [id number] Admin: 01/30/20 19:16 Dose: 240 mls/hr Documented by: [id number] Vancomycin HCl 1,500 mg/ (Sodium Chloride) 530 mls @ 200 mls/hr IV TODAY@0000 [facility] Stop: 01/31/20 02:38 Last Infusion: 01/31/20 03:05 Dose: 0 mls/hr Documented by: [id number] Admin: 01/31/20 00:06 Dose: 200 mls/hr Documented by: [id number] Sodium Chloride (Nss 1000ml) 500 mls @ 999 mls/hr IV .Q31M ONE Stop: 02/01/20 10:40 Last Infusion: 02/01/20 18:24 Dose: 0 mls/hr Documented by: [id number] Admin: 02/01/20 17:48 Dose: 999 mls/hr Documented by: [id number] Vancomycin HCl 750 mg/ Sodium (Chloride) 265 mls @ 200 mls/hr IV ONE ONE Stop: 02/01/20 16:19 Last Infusion: 02/01/20 20:09 Dose: 0 mls/hr Documented by: [id number] Admin: 02/01/20 17:46 Dose: 200 mls/hr Documented by: [id number] Medical Decision Making Differential Diagnosis Infection, dehydration, metabolic abnormality, hypo/hyperglycemia, electrolyte disturbance, anemia, hypoxia, cardiac sources, intracerebral event, toxicologic, neurologic, as well as other pathologies. Medical Records Attestation: I reviewed the patient's medical records. Home Medications Current Medication List: was personally reviewed by me Laboratory Data Attestation: I reviewed the patient's lab results. Result diagrams: 02/01/20 07:48 02/01/20 07:48 Lab Results 01/30/20 01/30/20 01/30/20 Range/Units 18:02 18:02 18:02 WBC 29.59 H (4.8-10.8) K/uL RBC 4.33 (4.2-5.4) M/uL Hgb 13.2 (12.0-16.0) g/dL Hct 42.5 (37-47) % MCV 98.2 (80-100) fL MCH 30.5 (25-34) pg MCHC 31.1 L (32-36) g/dL RDW Std Deviation 73.1 H (36.4-46.3) fL RDW Coeff of Bhavin 20.6 H (11.5-14.5) % Plt Count 267 (130-400) K/uL MPV 10.6 H (7.4-10.4) fL Immature Gran % (Auto) 0.6 % Neut % (Auto) 84.5 % Lymph % (Auto) 6.5 % [place] % (Auto) 8.2 % Eos % (Auto) 0.1 % Baso % (Auto) 0.1 % Neut # (Auto) 25.03 H (1.4-6.5) K/uL Lymph # (Auto) 1.91 (1.2-3.4) K/uL [place] # (Auto) 2.42 H (0.11-0.59) K/uL Eos # (Auto) 0.02 (0-0.5) K/uL Baso # (Auto) 0.03 (0-0.2) K/uL Immature Gran # (Auto) 0.18 H (0.00-0.02) K/uL Polychromasia 1+ Anisocytosis Present Sodium 135 L (136-145) mmol/L Potassium 3.7 (3.5-5.1) mmol/L Chloride 101 (98-107) mmol/L Carbon Dioxide 28 (21-32) mmol/L Anion Gap 6.0 (3-11) BUN 33 H (7-18) mg/dl Creatinine 5.12 H* (0.6-1.2) mg/dl Est Cr Clr Drug Dosing 10.2 ml/min Est GFR ( Amer) 9.0 Est GFR (Non-Af Amer) 7.8 BUN/Creatinine Ratio 6.5 L (10-20) Glucose 115 H (70-99) mg/dl Lactate 1.6 (0.4-2.0) mmol/L Calcium 8.4 L (8.5-10.1) mg/dl Magnesium 2.2 (1.8-2.4) mg/dl Total Bilirubin 0.4 (0.2-1) mg/dl AST 61 H (15-37) U/L ALT 14 (12-78) U/L Alkaline Phosphatase 151 H (45-117) U/L Total Protein 8.1 (6.4-8.2) gm/dl Albumin 2.9 L (3.4-5.0) gm/dl Globulin 5.2 H (2.5-4.0) gm/dl Albumin/Globulin Ratio 0.6 L (0.9-2) TSH 0.617 (0.300-4.500) uIu/ml Specimen Hemolysis COVID-19 Eval Order SARS-CoV-2, RNA, NAAT (NEGATIVE) 01/30/20 01/30/20 Range/Units 20:23 20:23 WBC (4.8-10.8) K/uL RBC (4.2-5.4) M/uL Hgb (12.0-16.0) g/dL Hct (37-47) % MCV (80-100) fL MCH (25-34) pg MCHC (32-36) g/dL RDW Std Deviation (36.4-46.3) fL RDW Coeff of Bhavin (11.5-14.5) % Plt Count (130-400) K/uL MPV (7.4-10.4) fL Immature Gran % (Auto) % Neut % (Auto) % Lymph % (Auto) % [place] % (Auto) % Eos % (Auto) % Baso % (Auto) % Neut # (Auto) (1.4-6.5) K/uL Lymph # (Auto) (1.2-3.4) K/uL [place] # (Auto) (0.11-0.59) K/uL Eos # (Auto) (0-0.5) K/uL Baso # (Auto) (0-0.2) K/uL Immature Gran # (Auto) (0.00-0.02) K/uL Polychromasia Anisocytosis Sodium (136-145) mmol/L Potassium (3.5-5.1) mmol/L Chloride (98-107) mmol/L Carbon Dioxide (21-32) mmol/L Anion Gap (3-11) BUN (7-18) mg/dl Creatinine (0.6-1.2) mg/dl Est Cr Clr Drug Dosing ml/min Est GFR ( Amer) Est GFR (Non-Af Amer) BUN/Creatinine Ratio (10-20) Glucose (70-99) mg/dl Lactate (0.4-2.0) mmol/L Calcium (8.5-10.1) mg/dl Magnesium (1.8-2.4) mg/dl Total Bilirubin (0.2-1) mg/dl AST (15-37) U/L ALT (12-78) U/L Alkaline Phosphatase (45-117) U/L Total Protein (6.4-8.2) gm/dl Albumin (3.4-5.0) gm/dl Globulin (2.5-4.0) gm/dl Albumin/Globulin Ratio (0.9-2) TSH (0.300-4.500) uIu/ml Specimen Hemolysis COVID-19 Eval [facility], RNA, NAAT NEGATIVE (NEGATIVE) Imaging Data Radiologist's Impression: CT head/brain wo con CLINICAL HISTORY: 74 years-old Female with AMS. Acutely altered mental status TECHNIQUE: Multiple axial CT images of the head were obtained without contrast. A dose lowering technique was utilized adhering to the principles of ALARA. CT DOSE: 614.27 mGy.cm COMPARISON: Head CT 11/10/2019 FINDINGS: No acute intracranial hemorrhage, midline shift, intracranial mass, hydrocephalus, territorial ischemia or abnormal extra-axial collection. Age- related involutional changes with ex vacuo ventriculomegaly. Mild patchy white matter hypodensities suggest chronic microvascular ischemic disease. The calvarium is intact. Small mastoid effusions. Moderate mucoperiosteal thickening of the right maxillary sinus with moderate to severe partial opacification of the left sphenoid sinus. Soft tissues are unremarkable. Prior bilateral lens replacement. IMPRESSION: No acute intracranial abnormality. ACT 112: Negative or not required by law. The above report was generated using voice recognition software. It may contain grammatical, syntax or spelling errors. Electronically signed by: Arnoldo Stiles M.D. 01/30/2020 6:49 PM Dictated: 01/30/201845Transcribed: 01/30/201845 XR chest 1V portable HISTORY: 74 years-old Female weakness acute weakness COMPARISON: Chest radiograph 01/06/2020 TECHNIQUE: Supine AP view the chest FINDINGS: Moderate cardiomegaly. Left IJ hemodialysis catheter distal tip terminates within the inferior cavoatrial junction distribution. Clear left lung. Right pleural effusion with diffuse haziness throughout the right lung. Pulmonary vascular congestion. Degenerative changes of the shoulders and spine. IMPRESSION: 1. Cardiomegaly with pulmonary vascular congestion. 2. Diffuse haziness of the right hemithorax may reflect a dependent layering pleural effusion versus asymmetric airspace disease versus asymmetric pulmonary edema. Follow-up PA and lateral views of the chest may be considered. ACT 112: Negative or not required by law. The above report was generated using voice recognition software. It may contain grammatical, syntax or spelling errors. Electronically signed by: Arnoldo Stiles M.D. 01/30/2020 6:18 PM Dictated: 01/30/201815Transcribed: 01/30/201815 ECG Data Attestation: I personally reviewed and interpreted this ECG as follows: Indication: + SOB/dyspnea Rate (beats per minute): 87 Rhythm: + normal sinus ECG Intervals/blocks: + Left bundle branch block and + Prolonged QT (519) ECG Findings: + Other (widened QRS) Blood Pressure Blood Pressure Findings: Low blood pressure Blood Pressure Disposition: further management by hospitalist SHALINI Hernández This pt was evaluated and appeared to be in no distress. Pt was resting on n/c oxygen in no distress. An order for cardiac monitoring was placed and the pt was noted to be in a NSR with LBBB at 85 bpm. EKG reveals no acute ischemia, but a LBBB. CXR reveals a R lung field infiltrate or haziness, which is concernign giving the pt's h/o dialysis and aspiration, hypoxia. Blood cx were sent. WBC is 29.6, lactate of 1.6. Pt was medicated with zosyn 4.5 gm IV. Pt had one episode of hypotension, however she was dialyzed yesterday. Case was d/w hospitalist who will evaluate for further management. Pt's was informed of the findings and plan and agreed. Impression & Plan Change in mental status, Pneumonia, Hypoxemia, ESRD (end stage renal disease) on dialysis Discharge Plan Visit Data Chief Complaint: Lethargic Stated Complaint: LETHARGIC ED Provider: Chio Montes De Oca Discharge Problem: Change in mental status, Pneumonia, Hypoxemia, ESRD (end stage renal disease) on dialysis Patient Disposition: Admitted As Inpatient Discharge Instructions Interventions: ED Discharge Assessment Last Done: 01/30/20 22:14 Discharge Problem: Change in mental status Qualifiers: Altered mental status type: somnolence Qualified Code(s): R40.0 - Somnolence Pneumonia Qualifiers: Pneumonia type: aspiration pneumonia Aspiration pneumonia type: unspecified [place] terality: right Lung location: unspecified part of lung Qualified Code(s): J69.0 - Pneumonitis due to inhalation of food and vomit
[2020-01-31 01:18] LABS: Bilirubin Urine Negative (Negative); Ictotest Urine Negative (Negative)
[2020-01-31 01:21] LABS: Bacteria Urine Automated 1+ (Negative); RBC Urine Automated >30 /hpf (0-4)
[2020-01-31] MEDS: PIPERACILLIN/TAZOBACTAM 4.5 GM in DEXTROSE 5% 100 ML IV SCH ×2 (03:04→17:19)
[2020-01-31] MEDS: LEVOTHYROXINE SODIUM 125 MCG TABLET PO SCH (05:35)
[2020-01-31 06:23] LABS: Hematocrit (blood only) 38.9 % (37-47); Hemoglobin 12.1 g/dL (12.0-16.0); Mean Corpuscular Hemoglobin 30.6 pg (25-34); Mean Corpuscular Hgb Conc 31.1 g/dL (32-36); Mean Corpuscular Volume 98.5 fL (80-100); Mean Platelet Volume 10.3 fL (7.4-10.4); Platelet Count 245 K/uL (130-400); RDW Coefficient of Variation 20.5 % (11.5-14.5); RDW Standard Deviation 73.1 fL (36.4-46.3); Red Blood Count 3.95 M/uL (4.2-5.4); White Blood Count 24.35 K/uL (4.8-10.8)
[2020-01-31 07:10] LABS: BUN Creatinine Ratio 7.7 (10-20); Creatinine Clr Calc Pharmacy 9.2 ml/min; Est GFR (African American) 7.9; Est GFR (Non-African American) 6.8; Magnesium 2.4 mg/dl (1.8-2.4); Potassium 3.4 mmol/L (3.5-5.1)
[2020-01-31 07:20] LABS: ALC (manual) 0.63 K/uL (1.2-3.4); Basophils # (manual) 0.41 K/uL (0-0.2); Basophils % (manual) 1.7 %; Lymphocytes # (manual) 0.63 K/uL (1.2-3.4); Lymphocytes % (manual) 2.6 %; Monocytes % (manual) 7.8 %; Neutrophils % (manual) 87.9 %; RBC Morphology Unremarkable
--- NOTE | 2020-01-31 07:24 | Hospitalist Progress Note ---
Date of Service January 31, 2020 Assessment & Plan (1) ESRD (end stage renal disease) on dialysis: ASSESSMENT AND PLAN: This is a 74-year-old female with past medical history significant for end-stage renal disease, Parkinson disease, hypertension, hyperlipidemia, history of non-ST elevated myocardial infarction, history of cerebrovascular accident, history of chronic heart failure with preserved EF, presents with lethargy. 1. Lethargy. The patient had dialysis yesterday, generally is worn out after dialysis, generally wakes up at 7:30 in the morning, she did not wake up until 1:00pm and she was just confused and staring. Even on CPAP, her sats were low, in 70s and 80s at home. Her white count is elevated to 29,000 in the ER. Chest x-ray, questionable pulmonary edema versus diffuse haziness in the right hemithorax. CT of the head is unremarkable. The patient has history of lethargy in the past. In November, she was admitted with altered mental status, thought to be from sepsis and aspiration and also medications. At that time, meclizine, oxybutynin, and Mirapex had been discontinued. We will empirically start on vancomycin and Zosyn. Follow the cultures. We will follow the ABG. Her mental status is somewhat improved. Will give gentle fluids and we will also get a CT of the chest as x-ray shows some right-sided haziness. Will follow the cultures and closely monitor in the tele floor. Dialysis catheter site seems okay. Hypoxia at home on CPAP currently, saturating fine at 2 liters. We will follow the CT of the chest. Reanl to see 2. History of sleep apnea. Continue CPAP at bedtime. 3. History of MRSA in the sputum in the past.Abx as above. Will follow cx 4. History of cerebrovascular accident, on Lipitor and aspirin, continue same. 5. History of chronic diastolic congestive heart failure, currently on dialysis. 6. End-stage renal disease, on hemodialysis. Next dialysis on Friday. Nephrology on case. 7. History of aspiration pneumonia. We will follow the CT chest. Currently on clear liquid diet. We will get a speech evaluation. 8. History of pneumothorax on the right side. We will follow the CT chest. 9. Diabetes .Not on medication at home. Will follow HbA1c levels. We will place on insulin sliding scale. 10. Prolonged qt. to avoid qt prolonging drugs. Follow ekg in am 11. HTN On isosorbide mononitrate,, terazosin. Holding amlodipine. Monitor BP as its somewhat on lower side. 12. Hx of cva on aspirin and statin. 13. Parkinson disease. On Sinemet. 14. Hypothyroidism. Synthroid. 15. Hx of NStemi. On aspirin, statin and nitrate 16. Deep venous thrombosis prophylaxis. We will place on sequential compression devices. We will place her on heparin for now. 12. Disposition, closely monitor in tele floor, level I full code. PT and OT prior to discharge. Social service to help with discharge planning. Labs Checked ROS-Somnolent, Answers Y/N Q's Physical Exam Gen-Somnolent, Responds to verbal stim, NAD, Afebrile, On BIPAP Head-NCAT, EOMI, PERRLA, Anicteric Sclera, No Posterior Pharyngeal Erythema Neck-Supple, No JVD, No Thyromegaly, No Masses, No LAD, No Bruits Lungs-Clear to Auscultation Bilaterally, No Rales, No Rhonchi, No Wheezing, No Crepitus Chest-No S4, +S1, +S2, No S3, No Murmurs, No Rubs, No Gallops, No Ectopy, HD catheter ZA Chest Abdomen-Soft, Bowel Sounds Present, Obese, Non Tender, Non Distended, No Hepatomegaly, No Splenomegaly, No Palpable Masses, No Rebound, No Rigidity, No Guarding Musculoskeletal-Full Range of Motion Bilaterally, No CVAT Extremities-No Cyanosis, No Clubbing, No Edema Nuero-Cranial Nerves II-XII grossly intact, Motor WNL, DTRs WNL, Strength WNL, Non Focal Psych-Cooperative Admission and Anticipated Discharge Date Admission Date: January 30, 2020 Results & Data Results & Data ([facility]) Vital Signs (Past 12 Hours) Vital Signs Temp Pulse Pulse Pulse Resp BP BP 01/31/20 07:19 36.5 C 78 16 120/74 01/31/20 03:43 36.5 C 85 17 88/47 L 01/31/20 02:40 84 20 01/30/20 23:17 87 22 01/30/20 22:53 36.4 C L 73 21 84/50 L 01/30/20 22:00 96 H 27 H 119/42 L 01/30/20 21:45 88 21 112/49 L 01/30/20 21:30 98 H 25 H 111/64 01/30/20 21:15 98 H 27 H 111/59 L 01/30/20 21:00 90 23 110/61 01/30/20 20:45 93 H 23 109/48 L 01/30/20 20:31 98 H 13 01/30/20 20:30 96 H 15 105/73 01/30/20 20:16 101 H 15 01/30/20 20:01 96 H 26 H 01/30/20 20:00 100 H 24 105/60 01/30/20 19:45 96 H 26 H 104/58 L 01/30/20 19:30 88 23 101/48 L Pulse Ox Pulse Ox 01/31/20 07:19 95 01/31/20 03:43 95 01/31/20 02:40 93 01/30/20 23:17 92 01/30/20 22:53 93 94 01/30/20 22:00 95 01/30/20 21:45 93 01/30/20 21:30 94 01/30/20 21:15 95 01/30/20 21:00 94 01/30/20 20:45 93 01/30/20 20:31 94 01/30/20 20:30 93 01/30/20 20:16 95 01/30/20 20:01 93 01/30/20 20:00 92 01/30/20 19:45 93 01/30/20 19:30 94
--- NOTE | 2020-01-31 07:29 | CT Scan Report ---
CT chest wo con CT DOSE: 342.39 mGy.cm HISTORY: Shortness of breath. pneumonia ? lethargy TECHNIQUE: Multiaxial CT images of the chest were performed without contrast. A dose lowering techni que was utilized adhering to the principles of ALARA. COMPARISON: Chest CT 11/10/2019. FINDINGS: A 3 mm nodule within the left lung apex on image 42. Respiratory motion artifact is noted. There are few small patchy densities within the left lung base. No suspicious lytic or blastic osseou s lesions. The thyroid gland is mildly enlarged. There is a left jugular catheter which terminates in the right atrium near the junction of the IVC. Limited views of the upper abdomen demonstrate normal liver and spleen. The heart remains moderately enlarged. Normal caliber thoracic aorta. Moderate rig ht pleural effusion. This may demonstrate a partially loculated component superiorly. The punctate ca lcification within the right pleural effusion. Consolidation within the right upper and lower lobes p osteriorly. This favors atelectasis from the pleural effusion. However, pneumonia could also have a s imilar appearance. There is moderate narrowing of the bronchus intermedius with mass effect posterior ly. This could be due to the pleural effusion or an underlying lesion. IMPRESSION: 1. Moderate right pleural effusion. 2. Consolidation within the right upper and lower lobes posteriorly. This favors atelectasis from the pleural effusion. A pneumonia could also have a similar appearance. 3. There is moderate narrowing of the bronchus intermedius with mass effect posteriorly. This could b e due to the pleural effusion on underlying lesion. Follow-up bronchoscopy or chest CT recommended on ce the effusion has resolved. 4. Additional findings as described above. ACT 112: Negative or not required by law. Electronically signed by: Carlos Jenkins M.D. 01/31/2020 7:28 AM
[2020-01-31] MEDS: INSULIN ASPART 100 UNITS/ML 3 ML PEN SC SCH ×4 (08:41→21:07)
[2020-01-31] MEDS: VENLAFAXINE HCL XR 75 MG CAPXR PO SCH (08:42)
[2020-01-31] MEDS: CALCIUM ACETATE 667 MG CAP/TAB PO PRN (08:42)
[2020-01-31] MEDS: CARBIDOPA/LEVODOPA 25/100MG TAB PO SCH ×3 (08:43→17:35)
[2020-01-31] MEDS: ASPIRIN 81 MG ECTAB PO SCH (08:43)
[2020-01-31] MEDS: CYANOCOBALAMIN 500 MCG TABLET (VITAMIN B-12) PO SCH (08:43)
[2020-01-31] MEDS: ISOSORBIDE MONO EXTENDED REL 30 MG TABCR PO SCH (08:43)
[2020-01-31] MEDS: CHOLECALCIFEROL 1,000 UNITS 25 MCG TAB PO SCH (08:44)
[2020-01-31] MEDS: ATORVASTATIN 40 MG TAB PO SCH (08:44)
[2020-01-31 08:46] LABS: Estimated Average Glucose 97 mg/dl
[2020-01-31] MEDS ORDERED: CHOLECALCIFEROL 1,000 UNITS 25 MCG TAB PO SCH (09:00)
--- NOTE | 2020-01-31 09:01 | Pharmacy Report ---
Pharmacy Abx Initial Consult - Date of Service January 31, 2020 - Pharmacy Dosing Scope Date of Consult: 01/30/2020 Consultation requested by: Dr. Stoll Pharmacy is consulted to initiate Vancomycin & Zosyn IV dosing therapy, order appropriate labs and adjust drug dose/frequency. - Subjective The patient is a 74 year old F admitted on 01/30/20 21:52. - Objective Height: 5 ft 2 in Weight: 91.5 kg Vital Signs (Past 12hrs): Vital Signs Temp Pulse Pulse Pulse Resp BP BP 01/31/20 07:19 36.5 C 78 16 120/74 01/31/20 03:43 36.5 C 85 17 88/47 L 01/31/20 02:40 84 20 01/30/20 23:17 87 22 01/30/20 22:53 36.4 C L 73 21 84/50 L 01/30/20 22:00 96 H 27 H 119/42 L 01/30/20 21:45 88 21 112/49 L 01/30/20 21:30 98 H 25 H 111/64 01/30/20 21:15 98 H 27 H 111/59 L 01/30/20 21:00 90 23 110/61 Pulse Ox Pulse Ox 01/31/20 07:19 95 01/31/20 03:43 95 01/31/20 02:40 93 01/30/20 23:17 92 01/30/20 22:53 93 94 01/30/20 22:00 95 01/30/20 21:45 93 01/30/20 21:30 94 01/30/20 21:15 95 01/30/20 21:00 94 Lab Results (24hrs): Laboratory Tests (24 Hours) 01/31/20 01/31/20 01/30/20 06:01 06:01 18:02 WBC 24.35 H 29.59 H Neut # (Auto) 25.03 H Creatinine 5.72 H* D Est Cr Clr Drug Dosing 9.2 01/30/20 18:02 WBC Neut # (Auto) Creatinine 5.12 H* Est Cr Clr Drug Dosing 10.2 Micro Results: 01/30/20 23:45 Urine Culture - Pending Urine,Clean Catch 01/30/20 19:06 Aerobic Blood Culture - Pending Blood Anaerobic Blood Culture - Pending 01/30/20 18:02 Aerobic Blood Culture - Pending Blood Anaerobic Blood Culture - Pending - Risk Factors for Resistance * Hospitalization for 48 hours or more within the past 90 days * Admitted from 11/10/2019 until 11/24/2019 for acute respiratory failure * Chronic dialysis within the past 30 days * ESRD on HD TTS * History of infection with a multidrug-resistant organism * Grew MRSA (Vanc MOOK = 2) in sputum from 11/11/2019 * Antimicrobial use within the last 90 days * During previous admission patient received vancomycin (2 doses), ceftaroline (11 doses), zosyn (1 dose), unasyn (3 doses), and ceftriaxone (2 doses) - Assessment & Plan Assessment 74 year old F admitted on the evening of 01/30/2020 secondary to lethargy * PMHx significant for COPD and ESRD on HD TTS, among others * Recently admitted in October 2019 for acute respiratory failure and required mechanical ventilation. Sputum culture grew MRSA from that admission which was treated with Teflaro. * Upon presentation to ED: patient was afebrile with a leukocytosis of 29K. Lactic acid was not elevated. No procal ordered and would likely be unreliable given ESRD. Blood and urine cultures are pending. Vancomycin + Zosyn were ordered empirically (48 hr stop). * This AM, patient's leukocytosis has slightly improved to 24K. She remains afebrile. * Nephrology consult pending and will likely resume outpatient HD scheduled tomorrow. Plan Vancomycin & Zosyn for empiric antimicrobial therapy (48 hour stop date) Vancomycin IV * Loading dose: 1500 mg (16.4 mg/kg) * Goal trough level: 15 to 20 mcg/mL given h/o MRSA * Given ESRD on HD, plan to order a random vancomycin level pre-dialysis tomorrow morning. Will follow nephrology consult in the instance they determine the patient requires HD today. If so, a post-dialysis vancomycin dose will be ordered. Piperacillin/tazobactam * 4.5 g bolus administered over 30 minutes, then 4.5 g IV extended infusion every 12 hours for ESRD on dialysis. * Aggressive dosing selected due to BMI 35 or more. Pharmacy will continue to follow and will adjust dose/frequency as necessary. Thank you.
[2020-01-31] MEDS: PREGABALIN 100 MG CAP PO SCH ×2 (10:58→21:02)
--- NOTE | 2020-01-31 11:56 | Consultation Report ---
DATE OF CONSULTATION: 01/31/2020 NEPHROLOGY CONSULTATION NOTE REASON FOR CONSULT: Dialysis patient admitted with lethargy from pneumonia. HISTORY OF PRESENT ILLNESS: The patient is a 74-year-old female with ESRD, on chronic hemodialysis Friday, , Friday through a tunneled dialysis catheter as well as multiple medical problems, admitted last night with increasing lethargy. She had a regular dialysis on Friday as per her schedule. As per the who brought the patient to the Emergency, she was sleeping excessively and was confused. Her checked her oxygen level and it was low, after which she was brought to the hospital. In the Emergency, she was found to have elevated white count. COVID test was negative. She was hypoxic. CT scan of the chest shows possible pneumonia with some pleural effusion. I could not get any history from the patient as she did not have a hearing aid and could not hear anything. ALLERGIES: None. PAST MEDICAL HISTORY: Includes longstanding diabetes, ESRD - on hemodialysis Yorgbvl-Anzgblav-Psipxkaw, obstructive sleep apnea, COPD, hypertension, chronic congestive heart failure with preserved ejection fraction, morbid obesity, nonalcoholic steatohepatitis, restless legs syndrome, Parkinson's disease, Meniere's disease, rheumatoid arthritis, history of ME, and history of stroke. PAST SURGICAL HISTORY: Left total knee arthroplasty, carpal tunnel, sinus surgery, tunneled catheter, ligation of the oviducts, bilateral heel surgery. MEDICATIONS AT HOME: Reviewed in detail and is as per the reconciliation list. FAMILY HISTORY: Unremarkable for renal disease or dialysis. SOCIAL HISTORY: She is and lives with her . She is a former smoker, quit in 1989, no alcohol use, no drug use. REVIEW OF SYSTEMS: Unable to obtain as the patient did not have her hearing aid and she could not hear anything what I was asking. Review of systems and history was constructed from the H and P. PHYSICAL EXAMINATION: GENERAL: Elderly white female who does not appear to be in any overt respiratory distress at this time. She appears awake and alert with eyes wide open and following commands. VITAL SIGNS: Blood pressure 120/74, pulse rate 78, temperature 36.5, 95% on nonrebreather mask. HEENT: Mucous membranes moist. NECK: Supple, no jugular venous distention. CHEST: Bilateral decreased breath sounds, occasional crackles. CARDIOVASCULAR: S1 and S2, regular. ABDOMEN: Soft, nontender. EXTREMITIES: Show no edema at all (this is significantly better than the last time I saw her). LABORATORY TEST: Reviewed and shows elevated white count. Hemoglobin is 12. WBC count is still 24,000. BUN 45, creatinine 5.7, potassium 3.4. Sodium 137, calcium 8.0. CT scan of the chest was reviewed and shows possible pneumonia with pleural effusion, no evidence of overt congestive heart failure. ASSESSMENT AND PLAN: A 74-year-old female with end-stage renal disease, on chronic hemodialysis Qilkjpk-Ecltizrt-Ewgyoqdp as well as extensive comorbid medical problem list admitted with lethargy and confusion with hypoxia. Most likely etiology of this is pneumonia based on the elevated white count and the CT chest finding: End-stage renal disease: Does not appear to have any evidence of fluid overload or congestive heart failure. In fact, at this time, she has absolutely no edema which is remarkably different than the last time I saw her when she had 4+ edema, hypoxia looks to be associated with pneumonia. Potassium is slightly low, but by tomorrow will probably be normal. There is no need to correct it. We will do dialysis tomorrow for 3 hours 30 minutes on a 3K bath and take about 2-3 kilo off as tolerated by blood pressure. Hemoglobin is pretty good at 12 and does not need Procrit. MTDD
--- NOTE | 2020-01-31 13:26 | Electrocardiogram Report ---
Test Reason : Blood Pressure : / mmHG Vent. Rate : 087 BPM Atrial Rate : 087 BPM P-R Int : 162 ms QRS Dur : 150 ms QT Int : 432 ms P-R-T Axes : 010 202 065 degrees QTc Int : 519 ms Normal sinus rhythm Left bundle branch block Abnormal ECG When compared with ECG of 06-JAN-2020 17:38, Premature ventricular complexes are no longer Present QRS axis Shifted left Confirmed by Angel Lopez ([id number]) on 01/31/2020 1:25:41 PM Referred By: REFERRED SELF Confirmed By:Angel Lopez
--- NOTE | 2020-01-31 13:43 | Electrocardiogram Report ---
Test Reason : Blood Pressure : / mmHG Vent. Rate : 080 BPM Atrial Rate : 080 BPM P-R Int : 168 ms QRS Dur : 152 ms QT Int : 452 ms P-R-T Axes : 037 016 062 degrees QTc Int : 521 ms Normal sinus rhythm Left bundle branch block Abnormal ECG When compared with ECG of 30-JAN-2020 17:44, (unconfirmed) QRS axis Shifted right Confirmed by Angel Lopez ([id number]) on 01/31/2020 1:43:19 PM Referred By: REFERRED SELF Confirmed By:Angel Lopez
[2020-01-31] MEDS: SODIUM CHLORIDE 0.9% 1000ML 1,000 ML IV SCH (20:01)
[2020-01-31] MEDS: ACETAMINOPHEN 325 MG TAB PO PRN (21:02)
[2020-01-31] MEDS: TERAZOSIN HCL 5 MG CAP PO SCH (21:03)
[2020-02-01] MEDS: PIPERACILLIN/TAZOBACTAM 4.5 GM in DEXTROSE 5% 100 ML IV SCH ×2 (04:06→16:30)
[2020-02-01] MEDS: LEVOTHYROXINE SODIUM 125 MCG TABLET PO SCH (06:20)
[2020-02-01] MEDS ORDERED: SODIUM CHLORIDE 0.9% 1000ML 1,000 ML IV PRN (07:00)
[2020-02-01 08:00] LABS: Basophils # (auto) 0.01 K/uL (0-0.2); Basophils % (auto) 0.1 %; Eosinophils # (auto) 0.42 K/uL (0-0.5); Eosinophils % (auto) 2.6 %; Hematocrit (blood only) 34.5 % (37-47); Hemoglobin 10.9 g/dL (12.0-16.0); Immature Granulocytes # (auto) 0.09 K/uL (0.00-0.02); Immature Granulocytes % (auto) 0.6 %; Lymphocytes # (auto) 0.86 K/uL (1.2-3.4); Lymphocytes % (auto) 5.4 %; Mean Corpuscular Hemoglobin 30.4 pg (25-34); Mean Corpuscular Hgb Conc 31.6 g/dL (32-36); Mean Corpuscular Volume 96.4 fL (80-100); Mean Platelet Volume 9.7 fL (7.4-10.4); Monocytes # (auto) 1.74 K/uL (0.11-0.59); Neutrophils # (auto) 12.75 K/uL (1.4-6.5); Neutrophils % (auto) 80.3 %; Platelet Count 220 K/uL (130-400); RDW Coefficient of Variation 20.1 % (11.5-14.5); RDW Standard Deviation 71.5 fL (36.4-46.3); Red Blood Count 3.58 M/uL (4.2-5.4); White Blood Count 15.87 K/uL (4.8-10.8)
[2020-02-01] MEDS ORDERED: HEPARIN SOD (PORCINE) 1000 UNIT/ML 10 ML VIAL IV SCH (08:00)
[2020-02-01] MEDS: CHOLECALCIFEROL 1,000 UNITS 25 MCG TAB PO SCH (08:12)
[2020-02-01] MEDS: VENLAFAXINE HCL XR 75 MG CAPXR PO SCH (08:13)
[2020-02-01] MEDS: ASPIRIN 81 MG ECTAB PO SCH (08:13)
[2020-02-01] MEDS: ATORVASTATIN 40 MG TAB PO SCH (08:13)
[2020-02-01] MEDS: ISOSORBIDE MONO EXTENDED REL 30 MG TABCR PO SCH ×3 (08:13→14:23)
[2020-02-01] MEDS: CALCIUM ACETATE 667 MG CAP/TAB PO PRN (08:13)
[2020-02-01] MEDS: CYANOCOBALAMIN 500 MCG TABLET (VITAMIN B-12) PO SCH (08:14)
[2020-02-01] MEDS: CARBIDOPA/LEVODOPA 25/100MG TAB PO SCH ×3 (08:15→17:54)
[2020-02-01] MEDS: INSULIN ASPART 100 UNITS/ML 3 ML PEN SC SCH ×4 (08:17→20:51)
[2020-02-01 08:20] LABS: Anisocytosis Present
[2020-02-01 08:45] LABS: Albumin Globulin Ratio 0.5 (0.9-2); Albumin Level 2.2 gm/dl (3.4-5.0); BUN Creatinine Ratio 8.9 (10-20); Bilirubin,Total 0.3 mg/dl (0.2-1); Calcium 7.9 mg/dl (8.5-10.1); Creatinine Clr Calc Pharmacy 8.3 ml/min; Est GFR (African American) 6.8; Est GFR (Non-African American) 5.9; Globulin 4.5 gm/dl (2.5-4.0); Magnesium 2.1 mg/dl (1.8-2.4); Phosphorus 7.8 mg/dl (2.5-4.9); Potassium 3.3 mmol/L (3.5-5.1); Total Protein 6.7 gm/dl (6.4-8.2)
--- NOTE | 2020-02-01 09:50 | Hospitalist Progress Note ---
Date of Service February 01, 2020 Assessment & Plan (1) ESRD (end stage renal disease) on dialysis: ASSESSMENT AND PLAN: This is a 74-year-old female with past medical history significant for end-stage renal disease, Parkinson disease, hypertension, hyperlipidemia, history of non-ST elevated myocardial infarction, history of cerebrovascular accident, history of chronic heart failure with preserved EF, presents with lethargy. 1. Lethargy. The patient had dialysis 1 day [employer], generally is worn out after dialysis, generally wakes up at 7:30 in the morning, she did not wake up until 1:00pm and she was just confused and staring. Even on CPAP, her sats were low, in 70s and 80s at home. Her white count is elevated to 29,000 in the ER. Chest x-ray, questionable pulmonary edema versus diffuse haziness in the right hemithorax. CT of the head is unremarkable. The patient has history of lethargy in the past. In November, she was admitted with altered mental status, thought to be from sepsis and aspiration and also medications. At that time, meclizine, oxybutynin, and Mirapex had been discontinued. We will empirically start on vancomycin and Zosyn. Follow the cultures. We will follow the ABG. Her mental status is greatly improved today. Continue gentle fluids and we will also get a CT of the chest as x-ray shows some right-sided haziness. Will follow the cultures and closely monitor in the tele floor. Dialysis catheter site seems okay. Hypoxia at home on CPAP currently, saturating fine at 2 liters. We will follow the CT of the chest. Reanl to see 2. History of sleep apnea. Continue CPAP at bedtime. 3. History of MRSA in the sputum in the past.Abx as above. Will follow cx 4. History of cerebrovascular accident, on Lipitor and aspirin, continue same. 5. History of chronic diastolic congestive heart failure, currently on dialys is. 6. End-stage renal disease, on hemodialysis. Next dialysis on Friday. Nephrology on case. 7. History of aspiration pneumonia. We will follow the CT chest. Currently on clear liquid diet. We will get a speech evaluation. 8. History of pneumothorax on the right side. We will follow the CT chest. 9. Diabetes .Not on medication at home. Will follow HbA1c levels. We will place on insulin sliding scale. 10. Prolonged qt. to avoid qt prolonging drugs. Follow ekg in am 11. HTN On isosorbide mononitrate,, terazosin. Holding amlodipine. Monitor BP as its somewhat on lower side. 12. Hx of cva on aspirin and statin. 13. Parkinson disease. On Sinemet. 14. Hypothyroidism. Synthroid. 15. Hx of NStemi. On aspirin, statin and nitrate 16. Deep venous thrombosis prophylaxis. We will place on sequential compression devices. We will place her on heparin for now. 12. Disposition, continue tele, level I full code. PT/OT prior to discharge. Social service to help with discharge planning. Labs Checked ROS-No Headache, No Visual Changes, No Nausea, No Vomiting, No Fever, No Chills, No Neck Pain or Stiffness, No Chest Pain, No Palpitations, No SOB, No BAKER, No Cough, No Sputum, No Wheezing, No Abdominal Pain, No Diarrhea, No Hematemesis, No Hemoptysis, No Unexpected Weight Loss, No Flank pain, No Melena, No Hematochezia, No Frequency, No Urgency, No Burning, No Hematuria, No Rashes, No Diaphoresis. Appetite is Normal Physical Exam Gen-AAO x 3, NAD, Afebrile, Hard of Hearing, On BIPAP Head-NCAT, EOMI, PERRLA, Anicteric Sclera, No Posterior Pharyngeal Erythema Neck-Supple, No JVD, No Thyromegaly, No Masses, No LAD, No Bruits Lungs-Clear to Auscultation Bilaterally, No Rales, No Rhonchi, No Wheezing, No Crepitus Chest-No S4, +S1, +S2, No S3, No Murmurs, No Rubs, No Gallops, No Ectopy Abdomen-Soft, Bowel Sounds Present, Non Tender, Non Distended, No Hepatomegaly, No Splenomegaly, No Palpable Masses, No Rebound, No Rigidity, No Guarding Musculoskeletal-Full Range of Motion Bilaterally, No CVAT Extremities-No Cyanosis, No Clubbing, No Edema Nuero-Cranial Nerves II-XII grossly intact, Motor WNL, DTRs WNL, Strength WNL, Non Focal Psych-Normal Mood Admission and Anticipated Discharge Date Admission Date: January 30, 2020 Results & Data Results & Data ([facility]) Vital Signs (Past 12 Hours) Vital Signs Temp Pulse Pulse Resp BP BP Pulse Ox 02/01/20 09:40 68 91/43 L 02/01/20 09:30 60 85/51 L 02/01/20 09:20 50 L 71/49 L 02/01/20 08:58 36.6 C 68 68 92/43 L 02/01/20 08:06 37.0 C 69 18 114/58 L 95 02/01/20 04:49 36.6 C 75 18 100/60 96 02/01/20 03:50 64 20 93 01/31/20 23:40 36.9 C 72 17 80/47 L 95 01/31/20 22:30 71 20 92
[2020-02-01] MEDS ORDERED: SODIUM CHLORIDE 0.9% 1000ML 500 ML IV ONE (10:10)
--- NOTE | 2020-02-01 10:19 | Progress Notes ---
DATE: 02/01/2020 DIALYSIS NOTE SUBJECTIVE: The patient was seen during dialysis. She appears to be weak, tired, and lethargic. Blood pressure was noted to be much lower than yesterday, it was 85 systolic. Dialysis catheter working fine. OBJECTIVE: HEENT: Mucous membranes moist. NECK: Supple. No jugular venous distention. CHEST: Bilateral clear to auscultation. CARDIOVASCULAR: S1, S2 regular. ABDOMEN: Soft, nontender. EXTREMITIES: Show no edema. LABORATORY TEST: From this morning was reviewed and shows creatinine of 6.4, BUN 57, potassium was 3.3, sodium 136. Hemoglobin 10.9, WBC count is 16,000. ASSESSMENT AND PLAN: A 74-year-old female with end-stage renal disease, on chronic hemodialysis Zcnhdfo-Xowsvxrj-Vythdbas as well as extensive comorbid medical problem list, admitted with lethargy and confusion with hypoxia. Most likely etiology of this is pneumonia based on the elevated white count and the CT chest finding. End-stage renal disease: She does not appear to have evidence of fluid overload or congestive heart failure. Given that her blood pressure is dropping, we will not be taking any fluid off today. In any case, I think the patient appears to be volume depleted more than anything. We will do dialysis for 3 hours on a 3K bath and we are not planning to take any fluid off today.
[2020-02-01] MEDS: PREGABALIN 100 MG CAP PO SCH ×2 (12:25→22:30)
[2020-02-01] MEDS: HEPARIN SOD (PORCINE) 1000 UNIT/ML 10 ML VIAL IV SCH ×2 (14:20→14:26)
[2020-02-01] MEDS ORDERED: VANCOMYCIN HCL 750 MG in SODIUM CHLORIDE 0.9% 250 ML IV ONE (15:00)
--- NOTE | 2020-02-01 15:05 | Pharmacy Report ---
Pharmacy Abx Dose Short Note - Date of Service February 01, 2020 - Assessment & Plan Assessment 74 year old F receiving Vancomycin & Zosyn for treatment of pneumonia * Day #2 of antimicrobial therapy. * Afebrile. Leukocytosis improving (29k-->24k-->16k). * Cultures with no growth to date. * H/o MRSA pneumonia and possibility of aspiration so Vancomycin and Zosyn appropriate for now. * Spoke with attending and he would like abx extended to 7 days total for now. * Underwent HD treatment today. Plan Vancomycin * Pre-hemodialysis Random level of 18.9 mcg/mL is therapeutic * Will give a one time Vancomycin dose of 750 mg (8 mg/kg) IV post-hemodialysis today. * Goal trough range is 15 - 20 mcg/mL. * Will order a random level for (02/03/2020) morning prior to hemodialysis. Zosyn * 4.5 gm IV every 12 hours remains appropriate for hemodialysis. Pharmacy will continue to follow and will adjust dose/frequency as necessary. Thank you.
--- NOTE | 2020-02-01 16:14 | Cardiology Progress Note ---
Date of Service February 01, 2020 Assessment & Plan (1) LBBB (left bundle branch block): (2) Aspiration pneumonia: Blood pressure is currently stable. Heart rate is stable, with chronic left bundle branch block, recent echocardiogram performed as outpatient earlier this month with findings of low normal LVEF in the setting of chronic left bundle branch block. Continue antibiotics for suspected pneumonia based on CT of the chest. Admission and Anticipated Discharge Date Admission Date: January 30, 2020 Chitra Carmona is a 74 year old female seen in cardiology consultation per the request of Dr Washington for evaluation of bradycardia and transient low blood pressure. At the time my assessment the patient's heart rate and blood pressure stable. Telemetry reveals sinus rhythm with left bundle branch block and occasional PVCs with heart rate ranging anywhere from 59 to 80 bpm. There has been no significant bradycardia, pauses, or tachycardia observed thus far. She has a longstanding history of a hearing problem. Outpatient records include recent cardiology follow-up note by Dr. Diop on 01/12/2020 with history of chronic left bundle branch block, obstructive sleep apnea with noncompliance to CPAP, diastolic dysfunction, Parkinson's disease, and end-stage renal disease for which she is on dialysis. She was admitted with generalized illness, and is being treated for pneumonia. Recent outpatient transthoracic echocardiogram performed 01/21/2020 revealed abnormal septal wall motion consistent with left bundle branch block, grade 1 diastolic dysfunction, low normal LVEF of 50%. Mild aortic valve sclerosis without stenosis was present and mild tricuspid regurgitation was present with estimated pulmonary systolic pressure 41 mmHg. EKG performed 01/31/2020 revealed normal sinus rhythm with left bundle branch block, QRS duration 152 ms, unchanged compared to previous. Review of Systems Review of Systems: Review of systems unobtainable due to the patient's hearing difficulty Physical Exam Physical Exam: Temp Pulse Resp BP Pulse Ox 36.4 C L 59 L 18 122/100 95 02/01/20 12:27 02/01/20 12:27 02/01/20 08:06 02/01/20 12:27 02/01/20 08:06 Respiratory: normal respiratory effort, lungs clear to auscultation Cardiovascular: RRR, no murmur, no edema Neurologic: Moves all 4 extremities Results & Data ([facility]) Vital Signs (Past 12 Hours) Vital Signs Temp Pulse Pulse Resp BP BP Pulse Ox 02/01/20 12:27 36.4 C L 59 L 122/100 02/01/20 12:00 59 L 122/100 02/01/20 11:40 52 L 113/89 02/01/20 11:20 61 121/39 L 02/01/20 11:00 96 H 136/79 02/01/20 10:40 50 L 104/46 L 02/01/20 10:20 71 85/59 L 02/01/20 10:00 42 L 90/44 L 02/01/20 09:40 68 91/43 L 02/01/20 09:30 60 85/51 L 02/01/20 09:20 50 L 71/49 L 02/01/20 08:58 36.6 C 68 68 92/43 L 02/01/20 08:06 37.0 C 69 18 114/58 L 95 02/01/20 04:49 36.6 C 75 18 100/60 96 Laboratory Results Cardiac Enzymes 02/01/20 Range/Units 07:48 AST 30 (15-37) U/L CBC 02/01/20 Range/Units 07:48 WBC 15.87 H (4.8-10.8) K/uL RBC 3.58 L (4.2-5.4) M/uL Hgb 10.9 L (12.0-16.0) g/dL Hct 34.5 L (37-47) % Plt Count 220 (130-400) K/uL Neut # (Auto) 12.75 H (1.4-6.5) K/uL Lymph # (Auto) 0.86 L (1.2-3.4) K/uL Price # (Auto) 1.74 H (0.11-0.59) K/uL Eos # (Auto) 0.42 (0-0.5) K/uL Baso # (Auto) 0.01 (0-0.2) K/uL Comprehensive Metabolic Panel 02/01/20 Range/Units 07:48 Sodium 136 (136-145) mmol/L Potassium 3.3 L (3.5-5.1) mmol/L Chloride 100 (98-107) mmol/L Carbon Dioxide 22 (21-32) mmol/L BUN 57 H (7-18) mg/dl Creatinine 6.46 H* D (0.6-1.2) mg/dl Glucose 86 (70-99) mg/dl Calcium 7.9 L (8.5-10.1) mg/dl AST 30 (15-37) U/L ALT 9 L (12-78) U/L Alkaline Phosphatase 119 H (45-117) U/L Total Protein 6.7 (6.4-8.2) gm/dl Albumin 2.2 L (3.4-5.0) gm/dl Intake and Output 02/01/20 02/01/20 02/01/20 06:59 14:59 22:59 Intake Total 120 / 120 Output Total 76 / 276 151 / 151 Balance -76 / 2564.00 - / Intake: IV 120 / 120 Zosyn 4.5 gm In D5 100 ml @ 30 120 / 120 mls/hr IV Q12H [facility] Rx#:[id number] Output: Urine Amount (Catheter) 75 / 275 150 / 150 Kirby/Indwelling 75 / 275 150 / 150 # Bowel Movements Other: Hemodialysis Ultrafiltration 0 Amount Other Intake Source sips Weight 95 kg 95 kg Weight Measurement Method Built in [facility] Patient Weight 02/02/20 06:59 Weight 95 kg (1) Aspiration pneumonia Aspiration pneumonia type: due to vomit Laterality: bilateral Lung location: lower lobe of lung Qualified Code(s): J69.0 - Pneumonitis due to inhalation of food and vomit
[2020-02-01] MEDS: SODIUM CHLORIDE 0.9% 1000ML 1,000 ML IV SCH (17:53)
[2020-02-01] MEDS: TERAZOSIN HCL 5 MG CAP PO SCH (22:30)
[2020-02-02] MEDS: ACETAMINOPHEN 325 MG TAB PO PRN (01:33)
[2020-02-02] MEDS: PIPERACILLIN/TAZOBACTAM 4.5 GM in DEXTROSE 5% 100 ML IV SCH ×2 (03:55→17:18)
[2020-02-02] MEDS: LEVOTHYROXINE SODIUM 125 MCG TABLET PO SCH (05:59)
[2020-02-02] MEDS: HEPARIN SOD (PORCINE) 1000 UNIT/ML 10 ML VIAL IV SCH (07:18)
[2020-02-02 08:16] LABS: Basophils # (auto) 0.01 K/uL (0-0.2); Basophils % (auto) 0.1 %; Eosinophils % (auto) 4.5 %; Hematocrit (blood only) 33.7 % (37-47); Hemoglobin 10.5 g/dL (12.0-16.0); Immature Granulocytes # (auto) 0.05 K/uL (0.00-0.02); Immature Granulocytes % (auto) 0.4 %; Lymphocytes # (auto) 0.81 K/uL (1.2-3.4); Lymphocytes % (auto) 7.3 %; Mean Corpuscular Hemoglobin 30.1 pg (25-34); Mean Corpuscular Hgb Conc 31.2 g/dL (32-36); Mean Corpuscular Volume 96.6 fL (80-100); Mean Platelet Volume 10.2 fL (7.4-10.4); Monocytes # (auto) 1.45 K/uL (0.11-0.59); Neutrophils # (auto) 8.33 K/uL (1.4-6.5); Neutrophils % (auto) 74.7 %; Platelet Count 241 K/uL (130-400); RDW Coefficient of Variation 19.7 % (11.5-14.5); RDW Standard Deviation 69.8 fL (36.4-46.3); Red Blood Count 3.49 M/uL (4.2-5.4); White Blood Count 11.15 K/uL (4.8-10.8)
[2020-02-02] MEDS: INSULIN ASPART 100 UNITS/ML 3 ML PEN SC SCH ×4 (08:22→21:21)
[2020-02-02 08:46] LABS: Albumin Globulin Ratio 0.5 (0.9-2); Albumin Level 2.2 gm/dl (3.4-5.0); BUN Creatinine Ratio 7.2 (10-20); Bilirubin,Total 0.2 mg/dl (0.2-1); Calcium 7.6 mg/dl (8.5-10.1); Creatinine Clr Calc Pharmacy 12.4 ml/min; Est GFR (African American) 10.9; Est GFR (Non-African American) 9.4; Globulin 4.5 gm/dl (2.5-4.0); Potassium 3.3 mmol/L (3.5-5.1); Total Protein 6.7 gm/dl (6.4-8.2)
[2020-02-02] MEDS: ASPIRIN 81 MG ECTAB PO SCH (09:12)
[2020-02-02] MEDS: PREGABALIN 100 MG CAP PO SCH ×2 (09:12→20:41)
[2020-02-02] MEDS: ATORVASTATIN 40 MG TAB PO SCH (09:13)
[2020-02-02] MEDS: CARBIDOPA/LEVODOPA 25/100MG TAB PO SCH ×3 (09:13→17:18)
[2020-02-02] MEDS: CHOLECALCIFEROL 1,000 UNITS 25 MCG TAB PO SCH (09:13)
[2020-02-02] MEDS: CYANOCOBALAMIN 500 MCG TABLET (VITAMIN B-12) PO SCH (09:13)
[2020-02-02] MEDS: VENLAFAXINE HCL XR 75 MG CAPXR PO SCH (09:13)
[2020-02-02] MEDS: ISOSORBIDE MONO EXTENDED REL 30 MG TABCR PO SCH (09:18)
--- NOTE | 2020-02-02 09:44 | Hospitalist Progress Note ---
Date of Service February 02, 2020 Assessment & Plan (1) ESRD (end stage renal disease) on dialysis: ASSESSMENT AND PLAN: This is a 74-year-old female with past medical history significant for end-stage renal disease, Parkinson disease, hypertension, hyperlipidemia, history of non- ST elevated myocardial infarction, history of cerebrovascular accident, history of chronic heart failure with preserved EF, presents with lethargy. Metabolic encephalopathy d/t poss. aspiration pna 1. Lethargy. The patient had dialysis 1 day [facility], generally is worn out after dialysis, generally wakes up at 7:30 in the morning, she did not wake up until 1:00pm and she was just confused and staring. Even on CPAP, her sats were low, in 70s and 80s at home. Her WBC elevated to 29,000 in the ER. Chest x-ray, questionable pulmonary edema versus diffuse haziness in the right hemithorax. CT of the head is unremarkable. The patient has history of lethargy in the past. In November, she was admitted with altered mental status, thought to be from sepsis and aspiration and also medications. At that time, meclizine, oxybutynin, and Mirapex had been discontinued. Empirically started on vancomycin and Zosyn. Follow the cultures. We will follow the ABG. Her mental status is much improved. CT of the chest as x-ray shows some right-sided haziness. CT chest : Moderate right pleural effusion. Consolidation within the right upper and lower lobes posteriorly. This favors atelectasis from the pleural effusion. A pneumonia could also have a similar appearance. There is moderate narrowing of the bronchus intermedius with mass effect posteriorly. This could be due to the pleural effusion on underlying lesion. Follow-up bronchoscopy or chest CT recommended once the effusion has resolved. Will follow the cultures and closely monitor in the tele floor. Dialysis catheter site seems okay. Hypoxia at home on CPAP, currently saturating fine at 2 liters. WBC 29K, now down 11 K (02/02/2020) Will consult pulmonary medicine given R sided pl. effusion, recurrent PNA, poss. empyema (02/02/2020), discussed w/ Dr. Dial Urine cltx - mixed rebecca - will repeat Loose stools - will obtain stool cultx Nausea, emesis - now resolved Speech eval - no aspiration 02/01 2. History of sleep apnea. Continue CPAP at bedtime. 3. History of MRSA in the sputum in the past.Abx as above. Will follow cx 4. History of cerebrovascular accident, on Lipitor and aspirin, continue same. 5. History of chronic diastolic congestive heart failure, currently on dialysis. 6. End-stage renal disease, on hemodialysis. Last HD on 01/31, pt hypotensive w/ nausea and emesis. Not able to remove fluid d/t hypotension. Next dialysis on . Nephrology following. 7. History of aspiration pneumonia. Follow the CT chest. Currently on clear liquid diet. We will get a speech evaluation. Now ok to eat, no aspiration, however nausea and emesis on 01/31. CT chest : Moderate right pleural effusion. Consolidation within the right upper and lower lobes posteriorly. This favors atelectasis from the pleural effusion. A pneumonia could also have a similar appearance. There is moderate narrowing of the bronchus intermedius with mass effect posteriorly. This could be due to the pleural effusion on underlying lesion. Follow-up bronchoscopy or chest CT recommended once the effusion has resolved. 8. History of pneumothorax on the right side. No pneumothorax now. 9. Diabetes .Not on medication at home. Current HbA1c 5.0% insulin sliding scale while inpt 10. Prolonged qt. to avoid qt prolonging drugs. Follow ekg in am, cardiology reviewed 11. HTN On isosorbide mononitrate,, terazosin. Holding amlodipine. Monitor BP as its somewhat on lower side. 12. Hx of cva on aspirin and statin. 13. Parkinson disease. On Sinemet. 14. Hypothyroidism. Synthroid. 15. Hx of NSTEMI. On aspirin, statin and nitrate DVT prophylaxis. sequential compression devices. heparin for now Disposition, continue tele, PT/OT prior to discharge. Social service to help with discharge planning. Likely [facility] Admission and Anticipated Discharge Date Admission Date: January 30, 2020 Subjective Pt is laying in bed, in NAD, appears very weak but able to answer questions. She is hard of hearing. States she feels better since she came to hospital. Had nausea and emesis yesterday, reports during HD. Now feels better no nausea, no abd. pain. Reports she ate earlier today. Speech therapy saw and evaluated the pt - no aspiration now. Pt has had loose stools. Urine cltx - mixed - recommend to repeat. Still using about 2 L of suppl. O2. Review of Systems Review of Systems: All systems reviewed & are unremarkable except as noted in HPI & below Constitutional: no fever and no chills Respiratory: no cough and no dyspnea (but on suppl. O2) Cardiovascular: no chest pain and no palpitations Gastrointestinal: no abdominal pain, no nausea and no vomiting Physical Exam Physical Exam: Gen- elderly female laying in bed, AAO x 3, NAD, Afebrile, Hard of Hearing on NC 2L Head- NCAT, EOMI,Anicteric Sclera, No Posterior Pharyngeal Erythema Neck-Supple, No JVD Lungs-Clear to Auscultation Bilaterally, No Rales, No Rhonchi, No Wheezing Chest- regular, no murmurs Abdomen- Soft, Bowel Sounds Present, Non Tender, Non Distended, No Rigidity, No Guarding : Kirby catheter placed, drains dark yellow urine Musculoskeletal- Full Range of Motion Bilaterally, No CVAT Extremities-No Cyanosis, No Clubbing, No Edema Neuro- alert and oriented and answering questions appropriately, speech fluent, no facial asymmetry, moves extremities but appears generally weak Psych- Normal Mood Results & Data Results & Data ([facility]) Vital Signs (Past 12 Hours) Vital Signs Temp Pulse Pulse Resp BP Pulse Ox 02/02/20 07:07 36.6 C 68 20 124/53 L 95 02/02/20 03:55 36.7 C 65 18 110/67 95 02/02/20 03:10 68 20 92 02/01/20 23:25 65 20 96 02/01/20 23:01 36.4 C L 77 18 122/80 94 Laboratory Results 02/02/20 02/02/20 02/02/20 Range/Units 07:43 07:43 07:10 WBC 11.15 H (4.8-10.8) K/uL RBC 3.49 L (4.2-5.4) M/uL Hgb 10.5 L (12.0-16.0) g/dL Hct 33.7 L (37-47) % MCV 96.6 (80-100) fL MCH 30.1 (25-34) pg MCHC 31.2 L (32-36) g/dL RDW Std Deviation 69.8 H (36.4-46.3) fL RDW Coeff of Bhavin 19.7 H (11.5-14.5) % Plt Count 241 (130-400) K/uL MPV 10.2 (7.4-10.4) fL Immature Gran % (Auto) 0.4 % Neut % (Auto) 74.7 % Lymph % (Auto) 7.3 % [place] % (Auto) 13.0 % Eos % (Auto) 4.5 % Baso % (Auto) 0.1 % Neut # (Auto) 8.33 H (1.4-6.5) K/uL Lymph # (Auto) 0.81 L (1.2-3.4) K/uL [place] # (Auto) 1.45 H (0.11-0.59) K/uL Eos # (Auto) 0.50 (0-0.5) K/uL Baso # (Auto) 0.01 (0-0.2) K/uL Immature Gran # (Auto) 0.05 H (0.00-0.02) K/uL Sodium 137 (136-145) mmol/L Potassium 3.3 L (3.5-5.1) mmol/L Chloride 103 (98-107) mmol/L Carbon Dioxide 23 (21-32) mmol/L Anion Gap 10.0 (3-11) BUN 31 H (7-18) mg/dl Creatinine 4.35 H D (0.6-1.2) mg/dl Est Cr Clr Drug Dosing 12.4 ml/min Est GFR ( Amer) 10.9 Est GFR (Non-Af Amer) 9.4 BUN/Creatinine Ratio 7.2 L (10-20) Glucose 91 (70-99) mg/dl POC Glucose 108 H (70-99) mg/dl Calcium 7.6 L (8.5-10.1) mg/dl Total Bilirubin 0.2 (0.2-1) mg/dl AST 28 (15-37) U/L ALT 8 L (12-78) U/L Alkaline Phosphatase 107 (45-117) U/L Total Protein 6.7 (6.4-8.2) gm/dl Albumin 2.2 L (3.4-5.0) gm/dl Globulin 4.5 H (2.5-4.0) gm/dl Albumin/Globulin Ratio 0.5 L (0.9-2) 02/01/20 02/01/20 02/01/20 Range/Units 20:49 16:45 11:18 WBC (4.8-10.8) K/uL RBC (4.2-5.4) M/uL Hgb (12.0-16.0) g/dL Hct (37-47) % MCV (80-100) fL MCH (25-34) pg MCHC (32-36) g/dL RDW Std Deviation (36.4-46.3) fL RDW Coeff of Bhavin (11.5-14.5) % Plt Count (130-400) K/uL MPV (7.4-10.4) fL Immature Gran % (Auto) % Neut % (Auto) % Lymph % (Auto) % [place] % (Auto) % Eos % (Auto) % Baso % (Auto) % Neut # (Auto) (1.4-6.5) K/uL Lymph # (Auto) (1.2-3.4) K/uL [place] # (Auto) (0.11-0.59) K/uL Eos # (Auto) (0-0.5) K/uL Baso # (Auto) (0-0.2) K/uL Immature Gran # (Auto) (0.00-0.02) K/uL Sodium (136-145) mmol/L Potassium (3.5-5.1) mmol/L Chloride (98-107) mmol/L Carbon Dioxide (21-32) mmol/L Anion Gap (3-11) BUN (7-18) mg/dl Creatinine (0.6-1.2) mg/dl Est Cr Clr Drug Dosing ml/min Est GFR ( Amer) Est GFR (Non-Af Amer) BUN/Creatinine Ratio (10-20) Glucose (70-99) mg/dl POC Glucose 127 H 86 87 (70-99) mg/dl Calcium (8.5-10.1) mg/dl Total Bilirubin (0.2-1) mg/dl AST (15-37) U/L ALT (12-78) U/L Alkaline Phosphatase (45-117) U/L Total Protein (6.4-8.2) gm/dl Albumin (3.4-5.0) gm/dl Globulin (2.5-4.0) gm/dl Albumin/Globulin Ratio (0.9-2) Medications Administered Current Inpatient Medications Acetaminophen (Acetaminophen 325 Mg Tab) 650 mg PO Q4H PRN PRN Reason: Pain or Fever Stop: 02/29/20 22:52 Last Admin: 02/02/20 01:33 Dose: 650 mg Documented by: Aspirin (Aspirin 81 Mg Ectab) 162 mg PO DAILY BAYRON Stop: 03/01/20 08:59 Last Admin: 02/02/20 09:12 Dose: 162 mg Documented by: Atorvastatin Calcium (Atorvastatin 40 Mg Tab) 80 mg PO QAM [facility] Stop: 03/01/20 08:59 Last Admin: 02/02/20 09:13 Dose: 80 mg Documented by: Calcium Acetate (Calcium Acetate 667 Mg Cap/Tab) 667 mg PO TIDM PRN PRN Reason: .SNACKS Stop: 03/01/20 07:59 Last Admin: 02/01/20 08:13 Dose: 667 mg Documented by: Carbidopa/Levodopa (Carbidopa/Levodopa 25/100mg Tab) 1 tab PO TIDM [facility] Stop: 03/01/20 07:59 Last Admin: 02/02/20 09:13 Dose: 1 tab Documented by: Cyanocobalamin (Cyanocobalamin 500 Mcg Tablet (Vitamin B-12)) 1,000 mcg PO QAM B[facility]RON Stop: 03/01/20 08:59 Last Admin: 02/02/20 09:13 Dose: 1,000 mcg Documented by: Dextrose (Dextrose 50% 50 Ml Syringe) 25 - 50 ml IV UD PRN; Protocol PRN Reason: Hypoglycemia Protocol Stop: 02/29/20 23:44 Glucagon (Glucagon For Inj 1 Mg Vial) 1 mg SQ UD PRN; Protocol PRN Reason: Hypoglycemia Protocol Stop: 02/29/20 23:44 Glucose (Glucose 40% Gel 15 Gm Tube) 15 - 30 gm PO UD PRN; Protocol PRN Reason: Hypoglycemia Protocol Stop: 02/29/20 23:44 Glucose (Glucose 10 Tabs/Tube) 4 - 8 tabs PO UD PRN; Protocol PRN Reason: Hypoglycemia Protocol Stop: 02/29/20 23:44 Sodium Chloride (Nss 1000ml) 1,000 mls @ 50 mls/hr IV .Q20H [facility] Stop: 02/29/20 22:52 Last Admin: 02/01/20 17:53 Dose: 50 mls/hr Documented by: Piperacillin Sod/Tazobactam (Sod 4.5 gm/ Dextrose) 120 mls @ 30 mls/hr IV Q12H [facility]; Protocol Stop: 02/07/20 03:59 Last Infusion: 02/02/20 08:21 Dose: Infused Documented by: Insulin Aspart (Insulin Aspart 100 Units/Ml 3 Ml Pen) 0 units SC ACHS [facility]RON Stop: 03/01/20 07:29 Last Admin: 02/02/20 08:22 Dose: Not Given Documented by: Isosorbide Mononitrate (Isosorbide [place] Extended Rel 30 Mg Tabcr) 30 mg PO DAILY B[facility]RON Stop: 03/01/20 08:59 Last Admin: 02/02/20 09:18 Dose: 30 mg Documented by: Levothyroxine Sodium (Levothyroxine Sodium 125 Mcg Tablet) 125 mcg PO DAILYBB [facility] Stop: 03/01/20 06:29 Last Admin: 02/02/20 05:59 Dose: 125 mcg Documented by: Miscellaneous (Carbohydrates For Hypoglycemia ) 15 - 30 gm PO UD PRN PRN Reason: Hypoglycemia Treatment Stop: 02/29/20 23:44 Miscellaneous Information (Piperacill/Tazobac Consult Active) 1 ea N/A UD PRN PRN Reason: Consult Stop: 02/29/20 18:39 Miscellaneous Information (Vancomycin Consult Active) 1 ea N/A UD PRN PRN Reason: Consult Stop: 02/29/20 22:52 Nitroglycerin (Nitroglycerin Sl 0.4 Mg/Tab Tab) 0.4 mg SL UD PRN PRN Reason: Chest Pain Stop: 02/29/20 22:52 Pregabalin (Pregabalin 100 Mg Cap) 100 mg PO BID [facility] Stop: 03/01/20 08:59 Last Admin: 02/02/20 09:12 Dose: 100 mg Documented by: Terazosin HCl (Terazosin Hcl 5 Mg Cap) 5 mg PO HS [facility] Stop: 03/01/20 20:59 Last Admin: 02/01/20 22:30 Dose: 5 mg Documented by: Venlafaxine HCl (Venlafaxine Hcl Xr 75 Mg Capxr) 75 mg PO QAM [facility] Stop: 03/01/20 08:59 Last Admin: 02/02/20 09:13 Dose: 75 mg Documented by: Vitamin D (Cholecalciferol 1,000 Units 25 Mcg Tab) 5,000 units PO DAILY B[facility]RON Stop: 03/01/20 08:59 Last Admin: 02/02/20 09:13 Dose: 5,000 units Documented by:
[2020-02-02] MEDS ORDERED: HEPARIN SOD (PORCINE) 1000 UNIT/ML 10 ML VIAL IV SCH (10:00)
[2020-02-02] MEDS: SODIUM CHLORIDE 0.9% 1000ML 1,000 ML IV SCH (11:46)
[2020-02-02] MEDS ORDERED: Nursing to Pharmacy Communication SCH (13:00)
[2020-02-02 13:53] LABS: Appearance Urine Turbid (Clear); Bacteria Urine Automated Negative (Negative); Bilirubin Urine Negative (Negative); Blood Urine 3+ (Negative); Color Urine Red; Glucose Urine UA Negative (Negative); Ketones Urine Negative (Negative); Leukocyte Esterase Urine 3+ (Negative); Nitrite Urine Negative (Negative); Protein Urine 2+ (Negative); Specific Gravity Urine 1.014 (1.000-1.030); Urobilinogen Urine Negative (Negative); WBC Urine Automated >30 /hpf (0-5)
[2020-02-02 14:04] LABS: RBC Urine Automated >30 /hpf (0-4)
--- NOTE | 2020-02-02 14:28 | Pulmonary Consultation ---
Date of Consultation February 02, 2020 Assessment & Plan (1) Pneumonia: CT chest 01/30/2020 personally reviewed: Loculated large right-sided pleural effusion is appreciated with right lower lobe atelectasis partial. Insignificant mediastinal lymphadenopathy air trapping appreciated. This pleural effusion was not appreciated on chest x-ray done 01/06/2020. --Right sided pleural effusion In the patient with leukocytosis on presentation and end-stage renal disease Likelihood of parapneumonic effusion is high in the differential Plan would be to have thoracentesis done if the patient agrees. Risk and benefit of the procedure explained to the patient. --RENÉ Compliant with CPAP Plan: Thoracentesis tomorrow Hold anticoagulation. Risk and benefit of the procedure explained to the patient. Please note the above document was generated using voice recognition software. It may contain grammatical, syntax or spelling errors.Any formal questions or concerns about the content, text or information contained within the body of this dictation should be directly addressed to the provider for clarification. Aspiration pneumonia type: unspecified Laterality: right Lung location: unspecified part of lung Pneumonia type: aspiration pneumonia Qualified Code(s): J69.0 - Pneumonitis due to inhalation of food and vomit (2) Pleural effusion: (3) RENÉ (obstructive sleep apnea): (4) Morbid obesity: History of Present Illness Attending Physician: Renan Tinajero MD History of Present Illness 74-year-old female with past medical history of end-stage renal disease on hemodialysis, diabetes, hypothyroidism, Parkinson's disease, sleep apnea using CPAP HFpEF, obesity was admitted to the hospital with generalized lethargy and WBC count of 29,000 Patient was also found to have left-sided pleural effusion as well as atelectasis/pneumonia. She has history of MRSA in the sputum in the past. At time of examination patient denies any significant complaints when it comes to her breathing. She is hard to hear. She denies any chest pain, no cough, no hemoptysis. She is not making urine. Denies any fever or chills. No, no dizziness, no blurry vision, denies any nausea or vomiting. No recent travel history. Patient is a poor historian. History obtained from previous chart and records. Allergies Allergy/AdvReac Type Severity Reaction Status Date / Time No Known Allergies Allergy Verified 01/30/20 19:19 Home Medications Medication Instructions Recorded Confirmed Type carbidopa-levodopa 1 tab PO TIDM 08/21/18 01/30/20 History cyanocobalamin (vitamin B-12) 1,000 mcg PO QAM 08/21/18 01/30/20 History [Vitamin B-12] levothyroxine 125 mcg PO QAM 08/21/18 01/30/20 History terazosin 5 mg PO HS 04/20/19 01/30/20 History venlafaxine 75 mg PO QAM 08/15/19 01/30/20 History cholecalciferol (vitamin D3) 125 mcg PO DAILY 09/21/19 01/30/20 History [Vitamin D3] isosorbide mononitrate 30 mg PO DAILY 09/21/19 01/30/20 History pregabalin 100 mg PO BID 11/10/19 01/30/20 History aspirin 162 mg PO DAILY 01/06/20 01/30/20 History atorvastatin 80 mg PO QAM 01/06/20 01/30/20 History calcium acetate(phosphat bind) See Rx Instructions .ROUTE .COMPLEX 01/06/20 01/30/20 History Betahistine Dih See Rx Instructions .ROUTE .COMPLEX 01/30/20 01/30/20 History amlodipine 5 mg PO DAILY 01/30/20 01/30/20 History meclizine 25 mg PO TID PRN 01/30/20 01/30/20 History Patient History Medical History (Updated 02/03/20 @ 17:50 by Ayaz Dial MD) Chronic diastolic heart failure Depression Diabetes mellitus, type II Dyslipidemia ESRD (end stage renal disease) on dialysis Generalized anxiety disorder Goals of care, counseling/discussion HTN (hypertension) Hypothyroidism RACHEL (iron deficiency anemia) Meniere's disease RENÉ on CPAP Parkinson disease Restless leg syndrome Rheumatoid arthritis Subdural hematoma Surgical History H/O sinus surgery History of carpal tunnel surgery History of orthopedic surgery " bilat heel surgery" History of tubal ligation Hx of total knee arthroplasty "Left, Dr. Del Real" Family History Other AAA (abdominal aortic aneurysm) Diabetes Family history non-contributory Hypertension Myotonic dystrophy Social History Smoking Status: Former smoker Years Smoked: 50; Cigarettes Per Day: 0.25ppd; Second Hand Exposure: No; Hx Alcohol Use: No Hx Substance Use: No Preferred Language: Citizen Of [place] Communication Ability: Effective Pega Developer Required: No Beliefs That Will Affect Care: None marital status: Current Living Situation: Spouse Current Living Situation Comment: lives in home with and has caregivers Other Information That Helps Us Care for You: No Feels Safe at Home: Yes Safety Concerns: Feels Safe At This Time Assistive Devices: Hearing Aid - Bilateral and Oxygen - Continuous Review of Systems Review of Systems: All systems reviewed & are unremarkable except as noted in HPI & below Physical Exam Physical Exam: Constitutional: No acute distress HEENT: EOMI, PERRLA, hard to hear Respiratory system: Decreased air entry bilaterally, positive crackles bilateral lower lobes more on the right side, no wheeze, no rhonchi CVS: S1-S2 positive, no murmurs or gallops, left-sided permacath Abdomen: Soft, nontender, nondistended, positive bowel sounds x4, obese Extremities: +2 pulses bilaterally radialis/ dorsalis pedis, no cyanosis, no edema Neuro: Awake alert oriented x3 Psych: Normal mood and affect G/U: No Kirby Skin: no rashes, warm and dry Lymphatic: no cervical or axillary lymphadenopathy Results & Data Results & Data ([facility]) Vital Signs (Past 12 Hours) Vital Signs Temp Pulse Pulse Resp BP Pulse Ox 02/02/20 11:09 36.7 C 66 20 112/55 L 96 02/02/20 10:36 64 02/02/20 07:07 36.6 C 68 20 124/53 L 95 02/02/20 03:55 36.7 C 65 18 110/67 95 02/02/20 03:10 68 20 92 02/03/20 05:48 02/03/20 05:48 PG Care Time/CCT Total # of Minutes Spent Total Time Spent with Patient: Total time spent is greater than 50% in coordination of care (as documented) at patient's floor/unit and/or counseling patient: Coding Level of Care Code 21406 Initial Inpt Care Lvl 3 Diagnoses Pneumonia J69.0 Aspiration pneumonia type: unspecified Laterality: right Lung location: unspecified part of lung Pneumonia type: aspiration pneumonia Pleural effusion J90 RENÉ (obstructive sleep apnea) G47.33 Morbid obesity E66.01
[2020-02-02] MEDS: TERAZOSIN HCL 5 MG CAP PO SCH (20:35)
[2020-02-03] MEDS: PIPERACILLIN/TAZOBACTAM 4.5 GM in DEXTROSE 5% 100 ML IV SCH ×2 (04:29→17:33)
[2020-02-03 06:01] LABS: Hematocrit (blood only) 33.3 % (37-47); Hemoglobin 10.3 g/dL (12.0-16.0); Mean Corpuscular Hemoglobin 29.9 pg (25-34); Mean Corpuscular Hgb Conc 30.9 g/dL (32-36); Mean Corpuscular Volume 96.5 fL (80-100); Mean Platelet Volume 10.1 fL (7.4-10.4); Platelet Count 214 K/uL (130-400); RDW Coefficient of Variation 19.8 % (11.5-14.5); Red Blood Count 3.45 M/uL (4.2-5.4); White Blood Count 9.02 K/uL (4.8-10.8)
[2020-02-03] MEDS: LEVOTHYROXINE SODIUM 125 MCG TABLET PO SCH (06:07)
[2020-02-03] MEDS: ACETAMINOPHEN 325 MG TAB PO PRN ×2 (06:15→10:49)
[2020-02-03] MEDS: SODIUM CHLORIDE 0.9% 1000ML 1,000 ML IV SCH (06:16)
[2020-02-03 06:38] LABS: BUN Creatinine Ratio 7.9 (10-20); Est GFR (African American) 9.4; Est GFR (Non-African American) 8.1; Magnesium 1.9 mg/dl (1.8-2.4); Phosphorus 5.6 mg/dl (2.5-4.9); Potassium 3.4 mmol/L (3.5-5.1)
[2020-02-03] MEDS ORDERED: SODIUM CHLORIDE 0.9% 1000ML 1,000 ML IV PRN (07:00)
[2020-02-03] MEDS: INSULIN ASPART 100 UNITS/ML 3 ML PEN SC SCH ×4 (07:31→20:58)
[2020-02-03] MEDS: CHOLECALCIFEROL 1,000 UNITS 25 MCG TAB PO SCH (08:06)
[2020-02-03] MEDS: CARBIDOPA/LEVODOPA 25/100MG TAB PO SCH ×3 (08:07→17:33)
[2020-02-03] MEDS: VENLAFAXINE HCL XR 75 MG CAPXR PO SCH (08:07)
[2020-02-03] MEDS: CYANOCOBALAMIN 500 MCG TABLET (VITAMIN B-12) PO SCH (08:07)
[2020-02-03] MEDS: ATORVASTATIN 40 MG TAB PO SCH (08:07)
[2020-02-03] MEDS: PREGABALIN 100 MG CAP PO SCH ×2 (08:08→20:54)
[2020-02-03] MEDS: ASPIRIN 81 MG ECTAB PO SCH (08:08)
[2020-02-03] MEDS ORDERED: ALBUT/IPRATROP 3MG/0.5MG NEB 3 ML VIAL NEB STA (08:26)
[2020-02-03] MEDS ORDERED: ALBUT/IPRATROP 3MG/0.5MG NEB 3 ML VIAL ONE (08:33)
[2020-02-03] MEDS ORDERED: POTASSIUM CHLORIDE 10 MEQ TABCR PO ONE (08:45)
[2020-02-03] MEDS ORDERED: HEPARIN SOD (PORCINE) 1000 UNIT/ML 10 ML VIAL IV SCH (10:00)
--- NOTE | 2020-02-03 10:00 | Pharmacy Report ---
Pharmacy Abx Dose Short Note - Date of Service February 03, 2020 - Assessment & Plan Assessment * 74 year old F receiving Vancomycin & Zosyn for treatment of pneumonia * Day #5 of antimicrobial therapy. * Afebrile. Leukocytosis improving (29k-->24k-->16k-->11k-->9k). * 1st urine cx contaminated. Other cultures with no growth to date * H/o MRSA pneumonia and possibility of aspiration. Multiple risk factors for resistant organism (HD dependence, recent hospitalization, recent receipt of broad spectrum abx, etc). Vancomycin + Zosyn appropriate empiric therapy. * HD treatment ordered today. Usual schedule: , , Plan Vancomycin * Pre-hemodialysis Random level of 19.5 mcg/mL is therapeutic * Will give a one time Vancomycin dose of 500 mg (5 mg/kg) IV post-hemodialysis today. * Goal trough range is 15 - 20 mcg/mL. * Will order a random level for Friday (02/05/2020) morning prior to hemodialysis. Zosyn * 4.5 gm IV every 12 hours remains appropriate for hemodialysis. Pharmacy will continue to follow and will adjust dose/frequency as necessary. Thank you.
[2020-02-03] MEDS: ALBUT/IPRATROP 3MG/0.5MG NEB 3 ML VIAL NEB SCH ×4 (11:07→23:23)
--- NOTE | 2020-02-03 12:32 | Progress Notes ---
DATE: 02/03/2020 DIALYSIS NOTE SUBJECTIVE: The patient was seen during dialysis. She is not complaining of anything as of now, dialysis catheter working fine. OBJECTIVE: VITAL SIGNS: Blood pressure looks good 139/63, pulse rate 53, respiratory rate 16, temperature 36.7, 96% on 2 liter nasal cannula. HEENT: Mucous membranes moist. NECK: Supple. No jugular venous distention. CHEST: Bilateral decreased breath sounds, poor inspiratory effort. CARDIOVASCULAR: S1, S2 regular. ABDOMEN: Soft, nontender. EXTREMITIES: Shows no edema. LABORATORY TESTS: From this morning was reviewed and significant for still slightly low potassium of 3.4. ASSESSMENT AND PLAN: A 74-year-old female with end-stage renal disease, on chronic hemodialysis Friday, , Friday, admitted with pneumonia. End-stage renal disease: She has been hypotensive with dialysis in the last few sessions. Blood pressure appears to be somewhat better today. We will try to get 1.5 kilo fluid off. Continue 3K bath.
--- NOTE | 2020-02-03 13:17 | Hospitalist Progress Note ---
Date of Service February 03, 2020 Assessment & Plan (1) ESRD (end stage renal disease) on dialysis: ASSESSMENT AND PLAN: This is a 74-year-old female with past medical history significant for end-stage renal disease, Parkinson disease, hypertension, hyperlipidemia, history of non- ST elevated myocardial infarction, history of cerebrovascular accident, history of chronic heart failure with preserved EF, presents with lethargy. Metabolic encephalopathy d/t poss. aspiration pna 1. Lethargy. The patient had dialysis 1 day [employer], generally is worn out after dialysis, generally wakes up at 7:30 in the morning, she did not wake up until 1:00pm and she was just confused and staring. Even on CPAP, her sats were low, in 70s and 80s at home. Her WBC elevated to 29,000 in the ER. Chest x-ray, questionable pulmonary edema versus diffuse haziness in the right hemithorax. CT of the head is unremarkable. The patient has history of lethargy in the past. In November, she was admitted with altered mental status, thought to be from sepsis and aspiration and also medications. At that time, meclizine, oxybutynin, and Mirapex had been discontinued. Empirically started on Vancomycin and Zosyn. Follow the cultures. We will follow the ABG. Her mental status is much improved. CT of the chest as x-ray shows some right-sided haziness. CT chest : Moderate right pleural effusion. Consolidation within the right upper and lower lobes posteriorly. This favors atelectasis from the pleural effusion. A pneumonia could also have a similar appearance. There is moderate narrowing of the bronchus intermedius with mass effect posteriorly. This could be due to the pleural effusion on underlying lesion. Follow-up bronchoscopy or chest CT recommended once the effusion has resolved. Will follow the cultures and closely monitor in the tele floor. Dialysis catheter site seems okay. Hypoxia at home on CPAP, currently saturating fine at 2 liters. WBC 29K, now down 11 K (02/02/2020) Pulmonary medicine consulted given R sided loculated pl. effusion, recurrent PNA, poss. empyema (02/02/2020), discussed w/ Dr. Dial, plan for R sided thoracentesis Urine cltx - mixed rebecca - will repeat Loose stools - will obtain stool cultx, C. diff negative Nausea, emesis - now resolved Speech eval - no aspiration 02/01 2. History of sleep apnea. Continue CPAP at bedtime. 3. History of MRSA in the sputum in the past.Abx as above. Will follow cx 4. History of cerebrovascular accident, on Lipitor and aspirin, continue same. 5. History of chronic diastolic congestive heart failure, currently on dialysis. 6. End-stage renal disease, on hemodialysis. HD on 01/31, pt hypotensive w/ nausea and emesis. Not able to remove fluid d/t hypotension. Currently pt on HD (02/02) no issues, no nausea, plan to remove 1.5 L of fluid. Nephrology following. 7. History of aspiration pneumonia. Speech evaluation obtained. Now ok to eat, no aspiration, however nausea and emesis on 01/31. CT chest : Moderate right pleural effusion. Consolidation within the right upper and lower lobes posteriorly. This favors atelectasis from the pleural effusion. A pneumonia could also have a similar appearance. There is moderate narrowing of the bronchus intermedius with mass effect posteriorly. This could be due to the pleural effusion on underlying lesion. Management as above. 8. History of pneumothorax on the right side. No pneumothorax now. 9. Diabetes. Not on medication at home. Current HbA1c 5.0% insulin sliding scale while inpt 10. Prolonged qt. to avoid qt prolonging drugs. Follow ekg in am, cardiology reviewed 11. HTN On isosorbide mononitrate, terazosin. Holding amlodipine. Monitor BP as its somewhat on lower side. Now BP improved. 12. Hx of cva on aspirin and statin. 13. Parkinson disease. On Sinemet. 14. Hypothyroidism. Synthroid. 15. Hx of NSTEMI. On aspirin, statin and nitrate DVT prophylaxis. SCDs. heparin for now Disposition, continue tele, PT/OT prior to discharge. Social service to help with discharge planning. Likely [facility] Admission and Anticipated Discharge Date Admission Date: January 30, 2020 Subjective Pt is sitting up in bed in NAD, currently on HD, appears comfortable and able to answer questions appropriately. She is hard of hearing. Had nausea and emesis during last HD, she was also quite hypotensive at that time, now reports no issues. Denies any nausea, or abd. pain. reports good appetite. Speech therapy saw and evaluated the pt - no aspiration now. Pt has had loose stools. C. diff negative. Urine cltx - mixed - recommend to repeat. Still using about 2 L of suppl. O2. Has R pl. effusion, pna, pulmonary medicine consulted. Review of Systems Review of Systems: All systems reviewed & are unremarkable except as noted in HPI & below Constitutional: no fever and no chills Respiratory: no cough and no dyspnea (however on 2L O2) Cardiovascular: no chest pain and no palpitations Gastrointestinal: no abdominal pain, no nausea and no vomiting Physical Exam Physical Exam: Gen- elderly female laying in bed, AAO x 3, NAD, Hard of Hearing on NC 2L Head- NCAT, EOMI,Anicteric Sclera, No Posterior Pharyngeal Erythema Neck-Supple, No JVD Lungs- decreased breath sounds, + bibasilar crackles, R>L, no wheezing Chest- regular, no murmurs Abdomen- Soft, Bowel Sounds Present, Non Tender, Non Distended, No Rigidity, No Guarding : Kirby catheter placed, drains yellow urine Extremities-No Cyanosis, No Clubbing, No Edema, moves extremities spontaneously Neuro- alert and oriented and answering questions appropriately, speech fluent, no facial asymmetry, moves extremities but appears generally weak Psych- Normal Mood Results & Data Results & Data ([facility]) Vital Signs (Past 12 Hours) Vital Signs Temp Pulse Pulse Pulse Resp BP BP 02/03/20 11:45 79 130/60 02/03/20 11:20 78 131/58 L 02/03/20 11:07 56 L 18 02/03/20 11:00 60 126/62 02/03/20 10:40 70 131/60 02/03/20 10:20 55 L 126/70 02/03/20 10:05 53 L 139/63 02/03/20 09:45 64 125/62 02/03/20 09:30 36.7 C 67 02/03/20 08:43 67 16 02/03/20 08:00 68 02/03/20 07:40 36.7 C 72 18 118/54 L 02/03/20 04:12 37.0 C 65 18 111/75 02/03/20 02:28 77 17 Pulse Ox 02/03/20 11:45 02/03/20 11:20 02/03/20 11:07 93 02/03/20 11:00 02/03/20 10:40 02/03/20 10:20 02/03/20 10:05 02/03/20 09:45 02/03/20 09:30 02/03/20 08:43 96 02/03/20 08:00 02/03/20 07:40 92 02/03/20 04:12 96 02/03/20 02:28 94 Laboratory Results 02/03/20 02/03/20 02/03/20 Range/Units Unknown 11: 07:27 WBC (4.8-10.8) K/uL RBC (4.2-5.4) M/uL Hgb (12.0-16.0) g/dL Hct (37-47) % MCV (80-100) fL MCH (25-34) pg MCHC (32-36) g/dL RDW Std Deviation (36.4-46.3) fL RDW Coeff of Bhavin (11.5-14.5) % Plt Count (130-400) K/uL MPV (7.4-10.4) fL Sodium (136-145) mmol/L Potassium (3.5-5.1) mmol/L Chloride (98-107) mmol/L Carbon Dioxide (21-32) mmol/L Anion Gap (3-11) BUN (7-18) mg/dl Creatinine (0.6-1.2) mg/dl Est Cr Clr Drug Dosing ml/min Est GFR ( Amer) Est GFR (Non-Af Amer) BUN/Creatinine Ratio (10-20) Glucose (70-99) mg/dl POC Glucose 108 H 93 (70-99) mg/dl Calcium (8.5-10.1) mg/dl Phosphorus (2.5-4.9) mg/dl Magnesium (1.8-2.4) mg/dl Urine Color Urine Appearance (Clear) Urine pH (4.5-7.5) Ur Specific Drake (1.000-1.030) Urine Protein (Negative) Urine Glucose (UA) (Negative) Urine Ketones (Negative) Urine Blood (Negative) Urine Nitrite (Negative) Urine Bilirubin (Negative) Urine Urobilinogen (Negative) Ur Leukocyte Esterase (Negative) Urine WBC (Auto) (0-5) /hpf Urine RBC (Auto) (0-4) /hpf U Hyaline Cast (Auto) (0-5) /lpf U Epithel Cells (Auto) (0-5) /lpf Urine Bacteria (Auto) (Negative) Urine Crystals Urine Yeast (None Prsent) Stl C. diff Tox B Gene Negative Cdiff Gene (Neg) Random Vancomycin mcg/ml 02/03/20 02/03/20 02/03/20 Range/Units 05:48 05:48 05:48 WBC 9.02 (4.8-10.8) K/uL RBC 3.45 L (4.2-5.4) M/uL Hgb 10.3 L (12.0-16.0) g/dL Hct 33.3 L (37-47) % MCV 96.5 (80-100) fL MCH 29.9 (25-34) pg MCHC 30.9 L (32-36) g/dL RDW Std Deviation 70.0 H (36.4-46.3) fL RDW Coeff of Bhavin 19.8 H (11.5-14.5) % Plt Count 214 (130-400) K/uL MPV 10.1 (7.4-10.4) fL Sodium 137 (136-145) mmol/L Potassium 3.4 L (3.5-5.1) mmol/L Chloride 106 (98-107) mmol/L Carbon Dioxide 23 (21-32) mmol/L Anion Gap 8.0 (3-11) BUN 39 H (7-18) mg/dl Creatinine 4.92 H* D (0.6-1.2) mg/dl Est Cr Clr Drug Dosing 11.0 ml/min Est GFR ( Amer) 9.4 Est GFR (Non-Af Amer) 8.1 BUN/Creatinine Ratio 7.9 L (10-20) Glucose 93 (70-99) mg/dl POC Glucose (70-99) mg/dl Calcium 7.0 L (8.5-10.1) mg/dl Phosphorus 5.6 H D (2.5-4.9) mg/dl Magnesium 1.9 (1.8-2.4) mg/dl Urine Color Urine Appearance (Clear) Urine pH (4.5-7.5) Ur Specific Drake (1.000-1.030) Urine Protein (Negative) Urine Glucose (UA) (Negative) Urine Ketones (Negative) Urine Blood (Negative) Urine Nitrite (Negative) Urine Bilirubin (Negative) Urine Urobilinogen (Negative) Ur Leukocyte Esterase (Negative) Urine WBC (Auto) (0-5) /hpf Urine RBC (Auto) (0-4) /hpf U Hyaline Cast (Auto) (0-5) /lpf U Epithel Cells (Auto) (0-5) /lpf Urine Bacteria (Auto) (Negative) Urine Crystals Urine Yeast (None Prsent) Stl C. diff Tox B Gene (Neg) Random Vancomycin 19.5 mcg/ml 02/02/20 02/02/20 02/02/20 Range/Units 20:39 16:29 13:18 WBC (4.8-10.8) K/uL RBC (4.2-5.4) M/uL Hgb (12.0-16.0) g/dL Hct (37-47) % MCV (80-100) fL MCH (25-34) pg MCHC (32-36) g/dL RDW Std Deviation (36.4-46.3) fL RDW Coeff of Bhavin (11.5-14.5) % Plt Count (130-400) K/uL MPV (7.4-10.4) fL Sodium (136-145) mmol/L Potassium (3.5-5.1) mmol/L Chloride (98-107) mmol/L Carbon Dioxide (21-32) mmol/L Anion Gap (3-11) BUN (7-18) mg/dl Creatinine (0.6-1.2) mg/dl Est Cr Clr Drug Dosing ml/min Est GFR ( Amer) Est GFR (Non-Af Amer) BUN/Creatinine Ratio (10-20) Glucose (70-99) mg/dl POC Glucose 102 H 106 H (70-99) mg/dl Calcium (8.5-10.1) mg/dl Phosphorus (2.5-4.9) mg/dl Magnesium (1.8-2.4) mg/dl Urine Color Red Urine Appearance Turbid A (Clear) Urine pH 5.0 (4.5-7.5) Ur Specific Drake 1.014 (1.000-1.030) Urine Protein 2+ H (Negative) Urine Glucose (UA) Negative (Negative) Urine Ketones Negative (Negative) Urine Blood 3+ H (Negative) Urine Nitrite Negative (Negative) Urine Bilirubin Negative (Negative) Urine Urobilinogen Negative (Negative) Ur Leukocyte Esterase 3+ H (Negative) Urine WBC (Auto) >30 H (0-5) /hpf Urine RBC (Auto) >30 H (0-4) /hpf U Hyaline Cast (Auto) 1-5 (0-5) /lpf U Epithel Cells (Auto) 10-20 H (0-5) /lpf Urine Bacteria (Auto) Negative (Negative) Urine Crystals Not Reportable Urine Yeast Budding w/ Hyphae A (None Prsent) Stl C. diff Tox B Gene (Neg) Random Vancomycin mcg/ml Medications Administered Current Inpatient Medications Acetaminophen (Acetaminophen 325 Mg Tab) 650 mg PO Q4H PRN PRN Reason: Pain or Fever Stop: 02/29/20 22:52 Last Admin: 02/03/20 10:49 Dose: 650 mg Documented by: Albuterol (Albut/Ipratrop 3mg/0.5mg Neb 3 Ml Vial) 3 ml NEB Q4R BAYRON Stop: 03/04/20 10:59 Last Admin: 02/03/20 11:07 Dose: 3 ml Documented by: Aspirin (Aspirin 81 Mg Ectab) 162 mg PO DAILY BAYRON Stop: 03/01/20 08:59 Last Admin: 02/03/20 08:08 Dose: 162 mg Documented by: Atorvastatin Calcium (Atorvastatin 40 Mg Tab) 80 mg PO QAM B[facility]RON Stop: 03/01/20 08:59 Last Admin: 02/03/20 08:07 Dose: 80 mg Documented by: Calcium Acetate (Calcium Acetate 667 Mg Cap/Tab) 667 mg PO TIDM PRN PRN Reason: .SNACKS Stop: 03/01/20 07:59 Last Admin: 02/01/20 08:13 Dose: 667 mg Documented by: Carbidopa/Levodopa (Carbidopa/Levodopa 25/100mg Tab) 1 tab PO TIDM B[facility]RON Stop: 03/01/20 07:59 Last Admin: 02/03/20 08:07 Dose: 1 tab Documented by: Cyanocobalamin (Cyanocobalamin 500 Mcg Tablet (Vitamin B-12)) 1,000 mcg PO QAM BAYRON Stop: 03/01/20 08:59 Last Admin: 02/03/20 08:07 Dose: 1,000 mcg Documented by: Dextrose (Dextrose 50% 50 Ml Syringe) 25 - 50 ml IV UD PRN; Protocol PRN Reason: Hypoglycemia Protocol Stop: 02/29/20 23:44 Glucagon (Glucagon For Inj 1 Mg Vial) 1 mg SQ UD PRN; Protocol PRN Reason: Hypoglycemia Protocol Stop: 02/29/20 23:44 Glucose (Glucose 40% Gel 15 Gm Tube) 15 - 30 gm PO UD PRN; Protocol PRN Reason: Hypoglycemia Protocol Stop: 02/29/20 23:44 Glucose (Glucose 10 Tabs/Tube) 4 - 8 tabs PO UD PRN; Protocol PRN Reason: Hypoglycemia Protocol Stop: 02/29/20 23:44 Heparin Sodium (Porcine) (Heparin Sod (Porcine) 1000 Unit/Ml 10 Ml Vial) 2,000 units IV TODAY@1000 BAYRON Stop: 02/03/20 18:00 Last Admin: 02/03/20 09:05 Dose: Not Given Documented by: Piperacillin Sod/Tazobactam (Sod 4.5 gm/ Dextrose) 120 mls @ 30 mls/hr IV Q12H BAYRON; Protocol Stop: 02/07/20 03:59 Last Infusion: 02/03/20 08:21 Dose: Infused Documented by: Vancomycin HCl 500 mg/ Sodium (Chloride) 110 mls @ 110 mls/hr IV .AFTER HD SESSION COMPLETE ONE; Protocol Stop: 02/03/20 16:59 Insulin Aspart (Insulin Aspart 100 Units/Ml 3 Ml Pen) 0 units SC ACHS [facility] Stop: 03/01/20 07:29 Last Admin: 02/03/20 11:50 Dose: Not Given Documented by: Isosorbide Mononitrate (Isosorbide [place] Extended Rel 30 Mg Tabcr) 30 mg PO DAILY BAYRON Stop: 03/01/20 08:59 Last Admin: 02/02/20 09:18 Dose: 30 mg Documented by: Lactobacillus Acidoph/Casei/Rhamnos (Advanced Probiotic 1250 Mg Capsule) 2 cap PO DAILY BAYRON Stop: 03/04/20 11:59 Levothyroxine Sodium (Levothyroxine Sodium 125 Mcg Tablet) 125 mcg PO DAILYBB [facility]RON Stop: 03/01/20 06:29 Last Admin: 02/03/20 06:07 Dose: 125 mcg Documented by: Miscellaneous (Carbohydrates For Hypoglycemia ) 15 - 30 gm PO UD PRN PRN Reason: Hypoglycemia Treatment Stop: 02/29/20 23:44 Miscellaneous Information (Piperacill/Tazobac Consult Active) 1 ea N/A UD PRN PRN Reason: Consult Stop: 02/29/20 18:39 Miscellaneous Information (Vancomycin Consult Active) 1 ea N/A UD PRN PRN Reason: Consult Stop: 02/29/20 22:52 Nitroglycerin (Nitroglycerin Sl 0.4 Mg/Tab Tab) 0.4 mg SL UD PRN PRN Reason: Chest Pain Stop: 02/29/20 22:52 Pregabalin (Pregabalin 100 Mg Cap) 100 mg PO BID [facility]RON Stop: 03/01/20 08:59 Last Admin: 02/03/20 08:08 Dose: 100 mg Documented by: Terazosin HCl (Terazosin Hcl 5 Mg Cap) 5 mg PO HS B[facility] Stop: 03/01/20 20:59 Last Admin: 02/02/20 20:35 Dose: 5 mg Documented by: Venlafaxine HCl (Venlafaxine Hcl Xr 75 Mg Capxr) 75 mg PO QAM B[facility] Stop: 03/01/20 08:59 Last Admin: 02/03/20 08:07 Dose: 75 mg Documented by: Vitamin D (Cholecalciferol 1,000 Units 25 Mcg Tab) 5,000 units PO DAILY BAYRON Stop: 03/01/20 08:59 Last Admin: 02/03/20 08:06 Dose: 5,000 units Documented by:
[2020-02-03] MEDS: ADVANCED PROBIOTIC 1250 MG CAPSULE PO SCH (13:47)
[2020-02-03] MEDS: ISOSORBIDE MONO EXTENDED REL 30 MG TABCR PO SCH (13:47)
[2020-02-03] MEDS ORDERED: VANCOMYCIN HCL 500 MG in 0.9 % SODIUM CHLORIDE 100 ML IV ONE (16:00)
--- NOTE | 2020-02-03 17:45 | Procedure Note ---
Procedure Note Date of Service February 03, 2020 Procedure: Diagnostic therapeutic ultrasound-guided catheter thoracentesis Automobile Painter: Dr. Ayaz Dial Indication: Pleural effusion Consent: Signed by patient and verified with timeout prior to procedure Anesthesia: 1% lidocaine without epinephrine local. Procedure: Consent was verified and timeout performed. Appropriate imaging studies were reviewed prior to the procedure. Patient was placed in a seated position and limited thoracic ultrasound was performed of the right chest. See separate imaging. Appropriate site above the diaphragm for thoracentesis was selected. The skin was prepped and draped in normal sterile fashion. Lidocaine was used for local analgesia. Fluid was aspirated via the finder needle. A small skin mary was made with the scalpel and the catheter over the needle apparatus was advanced over the rib into the pleural space. Using the syringe one-way valve system, a total of 500 mL's of cloudy yellow fluid was removed. The catheter was removed and observed to be intact. A sterile dressing was applied. Post procedure chest x-ray was ordered. Good lung sliding on the ultrasound appreciated postprocedure. Fluid was sent for labs, culture and cytology. Complications: None Blood loss: Less than 2 cc Please make note there are multiple loculations appreciated on the ultrasound at the time of examination. I was expecting to take out at least a liter and half of fluid but it was able to take out only find edema. Based on the pH of the fluid will decide whether the patient needs chest tube placement or not. Coding CPT Codes Pulmonary/Thoracic - Pulmonary and Thoracic: 57431 Thoracentesis w imaging ([id number]) [facility] Procedure Codes (Charges) Pulmonary/Thoracic Procedure 1: Pulmonary and Thoracic: 44153 Thoracentesis w imaging
--- NOTE | 2020-02-03 18:00 | Pulmonology Progress Note ---
Date of Service February 03, 2020 Assessment & Plan (1) Pneumonia: CT chest 01/30/2020 personally reviewed: Loculated large right-sided pleural effusion is appreciated with right lower lobe atelectasis partial. Insignificant mediastinal lymphadenopathy air trapping appreciated. This pleural effusion was not appreciated on chest x-ray done 01/06/2020. --Right sided loculated pleural effusion In the patient with leukocytosis on presentation and end-stage renal disease Likelihood of parapneumonic effusion is high in the differential Blood culture and sputum culture 01/30/2020 --> Negative to date S/p thoracentesis 02/03/2020, 500 mL cloudy yellow fluid removed. Follow-up labs Multiple loculations appreciated on the ultrasound at the time of examination. I was expecting to take out at least a liter and half of fluid but it was able to take out only find edema. Based on the pH of the fluid will decide whether the patient needs chest tube placement or not. --RENÉ Compliant with CPAP Plan: S/p thoracentesis. Follow-up labs. Please note the above document was generated using voice recognition software. It may contain grammatical, syntax or spelling errors.Any formal questions or concerns about the content, text or information contained within the body of this dictation should be directly addressed to the provider for clarification. Aspiration pneumonia type: unspecified Laterality: right Lung location: unspecified part of lung Pneumonia type: aspiration pneumonia Qualified Code(s): J69.0 - Pneumonitis due to inhalation of food and vomit (2) Pleural effusion: (3) RENÉ (obstructive sleep apnea): (4) Morbid obesity: Admission and Anticipated Discharge Date Admission Date: January 30, 2020 Subjective Patient seen and examined at bedside. No acute distress. Patient was getting dialysis at the time of examination. Denies any chest pain, no shortness of breath. No dizziness. Good appetite. Wants to go home. Review of Systems Review of Systems: All systems reviewed & are unremarkable except as noted in Subjective Physical Exam Physical Exam: Constitutional: No acute distress HEENT: EOMI, PERRLA, hard to hear Respiratory system: Decreased air entry bilaterally, positive crackles bilateral lower lobes more on the right side, no wheeze, no rhonchi CVS: S1-S2 positive, no murmurs or gallops, left-sided permacath Abdomen: Soft, nontender, nondistended, positive bowel sounds x4, obese Extremities: +2 pulses bilaterally radialis/ dorsalis pedis, no cyanosis, no edema Neuro: Awake alert oriented x3 Psych: Normal mood and affect G/U: No Kirby Skin: no rashes, warm and dry Lymphatic: no cervical or axillary lymphadenopathy Results & Data Results & Data ([facility]) Vital Signs (Past 12 Hours) Vital Signs Temp Pulse Pulse Pulse Resp BP BP 02/03/20 15:14 73 02/03/20 14:50 79 20 02/03/20 11:45 79 130/60 02/03/20 11:20 78 131/58 L 02/03/20 11:07 56 L 18 02/03/20 11:00 60 126/62 02/03/20 10:40 70 131/60 02/03/20 10:20 55 L 126/70 02/03/20 10:05 53 L 139/63 02/03/20 09:45 64 125/62 02/03/20 09:30 36.7 C 67 02/03/20 08:43 67 16 02/03/20 08:00 68 02/03/20 07:40 36.7 C 72 18 118/54 L Pulse Ox 02/03/20 15:14 02/03/20 14:50 95 02/03/20 11:45 02/03/20 11:20 02/03/20 11:07 93 02/03/20 11:00 02/03/20 10:40 02/03/20 10:20 02/03/20 10:05 02/03/20 09:45 02/03/20 09:30 02/03/20 08:43 96 02/03/20 08:00 02/03/20 07:40 92 02/03/20 05:48 02/03/20 05:48 PG Care Time/CCT Total # of Minutes Spent Total Time Spent with Patient: Total time spent is greater than 50% in coordination of care (as documented) at patient's floor/unit and/or counseling patient: Coding Level of Care Code 13630 Subseq Hosp Care Lvl 3 Diagnoses Pneumonia J69.0 Aspiration pneumonia type: unspecified Laterality: right Lung location: unspecified part of lung Pneumonia type: aspiration pneumonia Pleural effusion J90 RENÉ (obstructive sleep apnea) G47.33 Morbid obesity E66.01
--- NOTE | 2020-02-03 18:04 | XRay Report ---
XR chest 1V portable HISTORY: S/P Thoracentesis COMPARISON: Chest 01/30/2020. FINDINGS: Improved aeration within the right lung status post thoracentesis consistent with decrease in size in the small partially loculated right pleural effusion. No pneumothorax. Trace left pleural effusion persists. Left jugular dual-lumen catheter terminates in the right atrium. This remains unch anged. The heart remains enlarged. There is mild diffuse interstitial thickening which could be chron ic or represent mild congestive change. This is also unchanged. IMPRESSION: 1. Improved aeration within the right hemithorax status post thoracentesis consistent with decrease i n size in the small partially loculated right pleural effusion. 2. No pneumothorax. 3. Cardiomegaly and mild congestive change persists. ACT 112: Negative or not required by law. Electronically signed by: Carlos Jenkins M.D. 02/03/2020 6:03 PM
[2020-02-03 18:40] LABS: Amylase Pleural Fluid 21 U/L; Glucose Pleural Fluid 52 mg/dl; LDH Pleural Fluid 2062 U/L; Total Protein Pleural Fluid 4.7 g/dl
[2020-02-03 19:05] LABS: Appearance Pleural Fluid CLOUDY; Basophils, Fluid 0 %; Color Pleural Fluid YELLOW; Eosinophils, Fluid 0 %; Lymphocytes, Fluid 11 %; Mono,Macrophage,Mesothelial 4 %; Neutrophils, Fluid 85 %; RBC Pleural Fluid (A) < 3000 /uL; Source Pleural Fluid RIGHT LUNG; WBC Pleural Fluid (A) 1881 /uL
[2020-02-03 19:07] LABS: Albumin Level 2.4 gm/dl (3.4-5.0); Bilirubin,Total 0.2 mg/dl (0.2-1); Total Protein 6.7 gm/dl (6.4-8.2)
[2020-02-03] MEDS: TERAZOSIN HCL 5 MG CAP PO SCH (20:55)
[2020-02-04] MEDS: PIPERACILLIN/TAZOBACTAM 4.5 GM in DEXTROSE 5% 100 ML IV SCH ×2 (04:05→17:11)
[2020-02-04] MEDS: ALBUT/IPRATROP 3MG/0.5MG NEB 3 ML VIAL NEB SCH ×6 (04:12→22:24)
[2020-02-04] MEDS: LEVOTHYROXINE SODIUM 125 MCG TABLET PO SCH (06:26)
[2020-02-04 07:12] LABS: Hemoglobin 9.8 g/dL (12.0-16.0); Mean Corpuscular Hemoglobin 29.7 pg (25-34); Mean Corpuscular Hgb Conc 30.6 g/dL (32-36); Mean Platelet Volume 10.1 fL (7.4-10.4); Platelet Count 210 K/uL (130-400); RDW Coefficient of Variation 19.9 % (11.5-14.5); RDW Standard Deviation 70.6 fL (36.4-46.3); White Blood Count 7.51 K/uL (4.8-10.8)
[2020-02-04 07:52] LABS: BUN Creatinine Ratio 5.5 (10-20); Calcium 7.4 mg/dl (8.5-10.1); Creatinine Clr Calc Pharmacy 13.3 ml/min; Est GFR (African American) 11.7; Est GFR (Non-African American) 10.1; Potassium 3.6 mmol/L (3.5-5.1)
[2020-02-04] MEDS: CARBIDOPA/LEVODOPA 25/100MG TAB PO SCH ×3 (08:03→17:12)
[2020-02-04] MEDS: ATORVASTATIN 40 MG TAB PO SCH (08:04)
[2020-02-04] MEDS: ISOSORBIDE MONO EXTENDED REL 30 MG TABCR PO SCH (08:04)
[2020-02-04] MEDS: VENLAFAXINE HCL XR 75 MG CAPXR PO SCH (08:04)
[2020-02-04] MEDS: CYANOCOBALAMIN 500 MCG TABLET (VITAMIN B-12) PO SCH (08:04)
[2020-02-04] MEDS: CHOLECALCIFEROL 1,000 UNITS 25 MCG TAB PO SCH (08:05)
[2020-02-04] MEDS: ADVANCED PROBIOTIC 1250 MG CAPSULE PO SCH (08:05)
[2020-02-04] MEDS: ASPIRIN 81 MG ECTAB PO SCH (08:06)
[2020-02-04] MEDS: INSULIN ASPART 100 UNITS/ML 3 ML PEN SC SCH ×4 (08:08→20:27)
[2020-02-04] MEDS: PREGABALIN 100 MG CAP PO SCH ×2 (08:24→20:30)
--- NOTE | 2020-02-04 08:52 | Hospitalist Progress Note ---
Date of Service February 04, 2020 Assessment & Plan (1) ESRD (end stage renal disease) on dialysis: ASSESSMENT AND PLAN: This is a 74-year-old female with past medical history significant for end-stage renal disease, Parkinson disease, hypertension, hyperlipidemia, history of non- ST elevated myocardial infarction, history of cerebrovascular accident, history of chronic heart failure with preserved EF, presents with lethargy. Metabolic encephalopathy d/t poss. aspiration pna 1. Lethargy. The patient had dialysis 1 day [employer], generally is worn out after dialysis, generally wakes up at 7:30 in the morning, she did not wake up until 1:00pm and she was just confused and staring. Even on CPAP, her sats were low, in 70s and 80s at home. Her WBC elevated to 29,000 in the ER. Chest x-ray, questionable pulmonary edema versus diffuse haziness in the right hemithorax. CT of the head is unremarkable. The patient has history of lethargy in the past. In November, she was admitted with altered mental status, thought to be from sepsis and aspiration and also medications. At that time, meclizine, oxybutynin, and Mirapex had been discontinued. Empirically started on Vancomycin and Zosyn. Follow the cultures. We will follow the ABG. Her mental status is much improved. CT of the chest as x-ray shows some right-sided haziness. CT chest : Moderate right pleural effusion. Consolidation within the right upper and lower lobes posteriorly. This favors atelectasis from the pleural effusion. A pneumonia could also have a similar appearance. There is moderate narrowing of the bronchus intermedius with mass effect posteriorly. This could be due to the pleural effusion on underlying lesion. Follow-up bronchoscopy or chest CT recommended once the effusion has resolved. Will follow the cultures and closely monitor in the tele floor. Dialysis catheter site seems okay. Hypoxia at home on CPAP, currently saturating fine at 2 liters. WBC 29K, now normalized Pulmonary medicine consulted given R sided loculated pl. effusion, recurrent PNA, poss. empyema, discussed w/ Dr. Dial, plan for R sided thoracentesis Pt underwent R sided thoracentesis on 02/02, 500 cc of yellow cloudy fluid removed, fluid c/w parapneumonic effusion, pH 6.17, glc 52, cultx pending, (exudative per Light's criteria) Recommend to cont. Abx, consider CT VATS Urine cltx - mixed rebecca - will repeat Loose stools - will obtain stool cultx, C. diff negative Nausea, emesis - now resolved Speech eval - no aspiration 02/01 2. History of sleep apnea. Continue CPAP at bedtime. 3. History of MRSA in the sputum in the past.Abx as above. Will follow cx 4. History of cerebrovascular accident, on Lipitor and aspirin, continue same. 5. History of chronic diastolic congestive heart failure, currently on dialysis. 6. End-stage renal disease, on hemodialysis. HD on 01/31, pt hypotensive w/ nausea and emesis. Not able to remove fluid d/t hypotension. Currently pt on HD (02/02) no issues, no nausea, plan to remove 1.5 L of fluid. Nephrology following. 7. History of aspiration pneumonia. Speech evaluation obtained. Now ok to eat, no aspiration, however nausea and emesis on 01/31. CT chest : Moderate right pleural effusion. Consolidation within the right upper and lower lobes posteriorly. This favors atelectasis from the pleural effusion. A pneumonia could also have a similar appearance. There is moderate narrowing of the bronchus intermedius with mass effect posteriorly. This could be due to the pleural effusion on underlying lesion. Management as above. 8. History of pneumothorax on the right side. No pneumothorax now. 9. Diabetes. Not on medication at home. Current HbA1c 5.0% insulin sliding scale while inpt 10. Prolonged qt. to avoid qt prolonging drugs. Follow ekg in am, cardiology reviewed 11. HTN On isosorbide mononitrate, terazosin. Holding amlodipine. Monitor BP as its somewhat on lower side. Now BP improved. 12. Hx of cva on aspirin and statin. 13. Parkinson disease. On Sinemet. 14. Hypothyroidism. Synthroid. 15. Hx of NSTEMI. On aspirin, statin and nitrate DVT prophylaxis. SCDs. heparin for now Disposition, continue tele, PT/OT prior to discharge. Social service to help with discharge planning. Likely [facility] Admission and Anticipated Discharge Date Admission Date: January 30, 2020 Subjective Pt is laying in bed in NAD, answers questions appropriately. She is hard of hearing. Speech therapy saw and evaluated the pt - no aspiration now. Pt has had loose stools. C. diff negative. Urine cltx - mixed - recommend to repeat. Still using about 2 L of suppl. O2. Has R pl. effusion, pna, pulmonary medicine consulted, pt underwent thoracentesis yesterday. Review of Systems Review of Systems: All systems reviewed & are unremarkable except as noted in HPI & below Constitutional: no fever and no chills Respiratory: + dyspnea (mild); no cough Cardiovascular: no chest pain and no palpitations Gastrointestinal: no abdominal pain, no nausea and no vomiting Physical Exam Physical Exam: Gen- elderly female laying in bed, AAO x 3, NAD, Hard of Hearing on NC 2L Head- NCAT, EOMI,Anicteric Sclera, No Posterior Pharyngeal Erythema Neck-Supple, No JVD Lungs- decreased breath sounds, + bibasilar crackles, R>L, no wheezing Chest- regular, no murmurs Abdomen- Soft, Bowel Sounds Present, Non Tender, Non Distended, No Rigidity, No Guarding : Kirby catheter placed, drains yellow urine Extremities-No Cyanosis, No Clubbing, No Edema, moves extremities spontaneously Neuro- alert and oriented and answering questions appropriately, speech fluent, no facial asymmetry, moves extremities but appears generally weak Psych- Normal Mood Results & Data Results & Data ([facility]) Vital Signs (Past 12 Hours) Vital Signs Temp Pulse Pulse Pulse Resp BP Pulse Ox 02/04/20 08:12 75 130/73 02/04/20 07:32 61 18 96 02/04/20 04:13 70 18 95 02/04/20 04:12 70 18 95 02/04/20 03:41 37.1 C 66 18 136/74 96 02/03/20 23:23 68 26 H 98 02/03/20 23:14 37 C 71 18 131/71 97 02/03/20 22:15 87 20 92 Laboratory Results 02/04/20 02/04/20 02/04/20 Range/Units 07:25 06:58 06:58 WBC 7.51 (4.8-10.8) K/uL RBC 3.30 L (4.2-5.4) M/uL Hgb 9.8 L (12.0-16.0) g/dL Hct 32.0 L (37-47) % MCV 97.0 (80-100) fL MCH 29.7 (25-34) pg MCHC 30.6 L (32-36) g/dL RDW Std Deviation 70.6 H (36.4-46.3) fL RDW Coeff of Bhavin 19.9 H (11.5-14.5) % Plt Count 210 (130-400) K/uL MPV 10.1 (7.4-10.4) fL Sodium 137 (136-145) mmol/L Potassium 3.6 (3.5-5.1) mmol/L Chloride 105 (98-107) mmol/L Carbon Dioxide 27 (21-32) mmol/L Anion Gap 5.0 (3-11) BUN 23 H (7-18) mg/dl Creatinine 4.12 H D (0.6-1.2) mg/dl Est Cr Clr Drug Dosing 13.3 ml/min Est GFR ( Amer) 11.7 Est GFR (Non-Af Amer) 10.1 BUN/Creatinine Ratio 5.5 L (10-20) Glucose 90 (70-99) mg/dl POC Glucose 93 (70-99) mg/dl Calcium 7.4 L (8.5-10.1) mg/dl Total Bilirubin (0.2-1) mg/dl Lactate Dehydrogenase (84-246) U/L Total Protein (6.4-8.2) gm/dl Albumin (3.4-5.0) gm/dl Fluid Neutrophils % % Fluid Lymphocytes % % Fluid Eosinophils % % Fluid Basophils % % Fluid Meso/Macro/[place] % % Pleural Fluid Source Pleural Color Pleural Appearance Pleural pH (7.3-7.4) Pleural WBC /uL Pleural RBC /uL Pleural Total Protein g/dl Pleural LDH U/L Pleural Glucose mg/dl Pleural Amylase U/L Pleural Cholesterol 02/03/20 02/03/20 02/03/20 Range/Units 20:31 18:19 18:19 WBC (4.8-10.8) K/uL RBC (4.2-5.4) M/uL Hgb (12.0-16.0) g/dL Hct (37-47) % MCV (80-100) fL MCH (25-34) pg MCHC (32-36) g/dL RDW Std Deviation (36.4-46.3) fL RDW Coeff of Bhavin (11.5-14.5) % Plt Count (130-400) K/uL MPV (7.4-10.4) fL Sodium (136-145) mmol/L Potassium (3.5-5.1) mmol/L Chloride (98-107) mmol/L Carbon Dioxide (21-32) mmol/L Anion Gap (3-11) BUN (7-18) mg/dl Creatinine (0.6-1.2) mg/dl Est Cr Clr Drug Dosing ml/min Est GFR ( Amer) Est GFR (Non-Af Amer) BUN/Creatinine Ratio (10-20) Glucose (70-99) mg/dl POC Glucose 174 H (70-99) mg/dl Calcium (8.5-10.1) mg/dl Total Bilirubin 0.2 (0.2-1) mg/dl Lactate Dehydrogenase 223 (84-246) U/L Total Protein 6.7 (6.4-8.2) gm/dl Albumin 2.4 L (3.4-5.0) gm/dl Fluid Neutrophils % % Fluid Lymphocytes % % Fluid Eosinophils % % Fluid Basophils % % Fluid Meso/Macro/[place] % % Pleural Fluid Source Pleural Color Pleural Appearance Pleural pH (7.3-7.4) Pleural WBC /uL Pleural RBC /uL Pleural Total Protein g/dl Pleural LDH U/L Pleural Glucose mg/dl Pleural Amylase U/L Pleural Cholesterol 02/03/20 02/03/20 02/03/20 Range/Units 17:27 17:15 17:15 WBC (4.8-10.8) K/uL RBC (4.2-5.4) M/uL Hgb (12.0-16.0) g/dL Hct (37-47) % MCV (80-100) fL MCH (25-34) pg MCHC (32-36) g/dL RDW Std Deviation (36.4-46.3) fL RDW Coeff of Bhavin (11.5-14.5) % Plt Count (130-400) K/uL MPV (7.4-10.4) fL Sodium (136-145) mmol/L Potassium (3.5-5.1) mmol/L Chloride (98-107) mmol/L Carbon Dioxide (21-32) mmol/L Anion Gap (3-11) BUN (7-18) mg/dl Creatinine (0.6-1.2) mg/dl Est Cr Clr Drug Dosing ml/min Est GFR ( Amer) Est GFR (Non-Af Amer) BUN/Creatinine Ratio (10-20) Glucose (70-99) mg/dl POC Glucose 123 H (70-99) mg/dl Calcium (8.5-10.1) mg/dl Total Bilirubin (0.2-1) mg/dl Lactate Dehydrogenase (84-246) U/L Total Protein (6.4-8.2) gm/dl Albumin (3.4-5.0) gm/dl Fluid Neutrophils % % Fluid Lymphocytes % % Fluid Eosinophils % % Fluid Basophils % % Fluid Meso/Macro/[place] % % Pleural Fluid Source Pleural Color Pleural Appearance Pleural pH 7.16 L (7.3-7.4) Pleural WBC /uL Pleural RBC /uL Pleural Total Protein g/dl Pleural LDH U/L Pleural Glucose mg/dl Pleural Amylase U/L Pleural Cholesterol Pending 02/03/20 02/03/20 Range/Units 17:15 11:26 WBC (4.8-10.8) K/uL RBC (4.2-5.4) M/uL Hgb (12.0-16.0) g/dL Hct (37-47) % MCV (80-100) fL MCH (25-34) pg MCHC (32-36) g/dL RDW Std Deviation (36.4-46.3) fL RDW Coeff of Bhavin (11.5-14.5) % Plt Count (130-400) K/uL MPV (7.4-10.4) fL Sodium (136-145) mmol/L Potassium (3.5-5.1) mmol/L Chloride (98-107) mmol/L Carbon Dioxide (21-32) mmol/L Anion Gap (3-11) BUN (7-18) mg/dl Creatinine (0.6-1.2) mg/dl Est Cr Clr Drug Dosing ml/min Est GFR ( Amer) Est GFR (Non-Af Amer) BUN/Creatinine Ratio (10-20) Glucose (70-99) mg/dl POC Glucose 108 H (70-99) mg/dl Calcium (8.5-10.1) mg/dl Total Bilirubin (0.2-1) mg/dl Lactate Dehydrogenase (84-246) U/L Total Protein (6.4-8.2) gm/dl Albumin (3.4-5.0) gm/dl Fluid Neutrophils % 85 % Fluid Lymphocytes % 11 % Fluid Eosinophils % 0 % Fluid Basophils % 0 % Fluid Meso/Macro/[place] % 4 % Pleural Fluid Source RIGHT LUNG Pleural Color YELLOW Pleural Appearance CLOUDY Pleural pH (7.3-7.4) Pleural WBC 1881 /uL Pleural RBC < 3000 /uL Pleural Total Protein 4.7 g/dl Pleural LDH 2062 U/L Pleural Glucose 52 mg/dl Pleural Amylase 21 U/L Pleural Cholesterol Medications Administered Current Inpatient Medications Acetaminophen (Acetaminophen 325 Mg Tab) 650 mg PO Q4H PRN PRN Reason: Pain or Fever Stop: 02/29/20 22:52 Last Admin: 02/03/20 10:49 Dose: 650 mg Documented by: Albuterol (Albut/Ipratrop 3mg/0.5mg Neb 3 Ml Vial) 3 ml NEB Q4R BAYRON Stop: 03/04/20 10:59 Last Admin: 02/04/20 07:32 Dose: 3 ml Documented by: Aspirin (Aspirin 81 Mg Ectab) 162 mg PO DAILY BAYRON Stop: 03/01/20 08:59 Last Admin: 02/04/20 08:06 Dose: 162 mg Documented by: Atorvastatin Calcium (Atorvastatin 40 Mg Tab) 80 mg PO QAM BAYRON Stop: 03/01/20 08:59 Last Admin: 02/04/20 08:04 Dose: 80 mg Documented by: Calcium Acetate (Calcium Acetate 667 Mg Cap/Tab) 667 mg PO TIDM PRN PRN Reason: .SNACKS Stop: 03/01/20 07:59 Last Admin: 02/01/20 08:13 Dose: 667 mg Documented by: Carbidopa/Levodopa (Carbidopa/Levodopa 25/100mg Tab) 1 tab PO TIDM BAYRON Stop: 03/01/20 07:59 Last Admin: 02/04/20 08:03 Dose: 1 tab Documented by: Cyanocobalamin (Cyanocobalamin 500 Mcg Tablet (Vitamin B-12)) 1,000 mcg PO QAM BAYRON Stop: 03/01/20 08:59 Last Admin: 02/04/20 08:04 Dose: 1,000 mcg Documented by: Dextrose (Dextrose 50% 50 Ml Syringe) 25 - 50 ml IV UD PRN; Protocol PRN Reason: Hypoglycemia Protocol Stop: 02/29/20 23:44 Glucagon (Glucagon For Inj 1 Mg Vial) 1 mg SQ UD PRN; Protocol PRN Reason: Hypoglycemia Protocol Stop: 02/29/20 23:44 Glucose (Glucose 40% Gel 15 Gm Tube) 15 - 30 gm PO UD PRN; Protocol PRN Reason: Hypoglycemia Protocol Stop: 02/29/20 23:44 Glucose (Glucose 10 Tabs/Tube) 4 - 8 tabs PO UD PRN; Protocol PRN Reason: Hypoglycemia Protocol Stop: 02/29/20 23:44 Piperacillin Sod/Tazobactam (Sod 4.5 gm/ Dextrose) 120 mls @ 30 mls/hr IV Q12H BAYRON; Protocol Stop: 02/07/20 03:59 Last Admin: 02/04/20 04:05 Dose: 30 mls/hr Documented by: Insulin Aspart (Insulin Aspart 100 Units/Ml 3 Ml Pen) 0 units SC ACHS BAYRON Stop: 03/01/20 07:29 Last Admin: 02/04/20 08:08 Dose: Not Given Documented by: Isosorbide Mononitrate (Isosorbide [place] Extended Rel 30 Mg Tabcr) 30 mg PO DAILY BAYRON Stop: 03/01/20 08:59 Last Admin: 02/04/20 08:04 Dose: 30 mg Documented by: Lactobacillus Acidoph/Casei/Rhamnos (Advanced Probiotic 1250 Mg Capsule) 2 cap PO DAILY BAYRON Stop: 03/04/20 11:59 Last Admin: 02/04/20 08:05 Dose: 2 cap Documented by: Levothyroxine Sodium (Levothyroxine Sodium 125 Mcg Tablet) 125 mcg PO DAILY BAYRON Stop: 03/01/20 06:29 Last Admin: 02/04/20 06:26 Dose: 125 mcg Documented by: Miscellaneous (Carbohydrates For Hypoglycemia ) 15 - 30 gm PO UD PRN PRN Reason: Hypoglycemia Treatment Stop: 02/29/20 23:44 Miscellaneous Information (Piperacill/Tazobac Consult Active) 1 ea N/A UD PRN PRN Reason: Consult Stop: 02/29/20 18:39 Miscellaneous Information (Vancomycin Consult Active) 1 ea N/A UD PRN PRN Reason: Consult Stop: 02/29/20 22:52 Nitroglycerin (Nitroglycerin Sl 0.4 Mg/Tab Tab) 0.4 mg SL UD PRN PRN Reason: Chest Pain Stop: 02/29/20 22:52 Pregabalin (Pregabalin 100 Mg Cap) 100 mg PO BID BAYRON Stop: 03/01/20 08:59 Last Admin: 02/04/20 08:24 Dose: 100 mg Documented by: Terazosin HCl (Terazosin Hcl 5 Mg Cap) 5 mg PO HS BAYRON Stop: 03/01/20 20:59 Last Admin: 02/03/20 20:55 Dose: Not Given Documented by: Venlafaxine HCl (Venlafaxine Hcl Xr 75 Mg Capxr) 75 mg PO QAM BAYRON Stop: 03/01/20 08:59 Last Admin: 02/04/20 08:04 Dose: 75 mg Documented by: Vitamin D (Cholecalciferol 1,000 Units 25 Mcg Tab) 5,000 units PO DAILY BAYRON Stop: 03/01/20 08:59 Last Admin: 02/04/20 08:05 Dose: 5,000 units Documented by:
--- NOTE | 2020-02-04 12:38 | Pulmonology Progress Note ---
Date of Service February 04, 2020 Assessment & Plan (1) Pneumonia: CT chest 01/30/2020 personally reviewed: Loculated large right-sided pleural effusion is appreciated with right lower lobe atelectasis partial. Insignificant mediastinal lymphadenopathy air trapping appreciated. This pleural effusion was not appreciated on chest x-ray done 01/06/2020. --Right sided loculated pleural effusion In the patient with leukocytosis on presentation and end-stage renal disease Likelihood of parapneumonic effusion is high in the differential Blood culture and sputum culture 01/30/2020 --> Negative to date S/p thoracentesis 02/03/2020, 500 mL cloudy yellow fluid removed. --> Exudative as per lights criteria. Parapneumonic if you look at the pH and the glucose Pleural fluid: LDH 2062, protein 4.7, glucose 52, pH 7.16 Serum: LDH 220, protein 6.7 --RENÉ Compliant with CPAP Plan: I did bedside ultrasound today. Patient still has fluid which is laying around the lung along with consolidative right lower lobe. Chest x-ray shows improvement in the pleural effusion after thoracentesis. Patient is clinically doing better. I would continue with antibiotics and consideration should be thought of VATS. Case was discussed with Dr Tinajero Please note the above document was generated using voice recognition software. It may contain grammatical, syntax or spelling errors.Any formal questions or concerns about the content, text or information contained within the body of this dictation should be directly addressed to the provider for clarification. Aspiration pneumonia type: unspecified Laterality: right Lung location: unspecified part of lung Pneumonia type: aspiration pneumonia Qualified Code(s): J69.0 - Pneumonitis due to inhalation of food and vomit (2) Pleural effusion: (3) RENÉ (obstructive sleep apnea): (4) Morbid obesity: Admission and Anticipated Discharge Date Admission Date: January 30, 2020 Subjective Patient seen and examined at bedside. No acute distress, no adverse events overnight. Patient status post thoracentesis 02/03/2020 Denies any chest pain, no shortness of breath, no headache, no nausea, no vomiting. Patient was having breakfast at the time of examination. Afebrile. Review of Systems Review of Systems: All systems reviewed & are unremarkable except as noted in Subjective Physical Exam Physical Exam: Constitutional: No acute distress HEENT: EOMI, PERRLA, hard to hear Respiratory system: Decreased air entry bilaterally, positive crackles bilateral lower lobes more on the right side, no wheeze, no rhonchi CVS: S1-S2 positive, no murmurs or gallops, left-sided permacath Abdomen: Soft, nontender, nondistended, positive bowel sounds x4, obese Extremities: +2 pulses bilaterally radialis/ dorsalis pedis, no cyanosis, no edema Neuro: Awake alert oriented x3 Psych: Normal mood and affect G/U: No Kirby Skin: no rashes, warm and dry Lymphatic: no cervical or axillary lymphadenopathy Results & Data Results & Data ([facility]) Vital Signs (Past 12 Hours) Vital Signs Temp Pulse Pulse Pulse Resp BP Pulse Ox 02/04/20 12:09 36.8 C 56 L 18 131/60 02/04/20 11:19 70 18 95 02/04/20 08:12 75 130/73 02/04/20 07:32 61 18 96 02/04/20 04:13 70 18 95 02/04/20 04:12 70 18 95 02/04/20 03:41 37.1 C 66 18 136/74 96 Laboratory Tests 02/03/20 02/03/20 02/03/20 17:15 17:15 18:19 Lactate Dehydrogenase Total Protein 6.7 Pleural pH 7.16 L Pleural Total Protein 4.7 Pleural LDH 2062 Pleural Glucose 52 02/03/20 18:19 Lactate Dehydrogenase 223 Total Protein Pleural pH Pleural Total Protein Pleural LDH Pleural Glucose 02/04/20 06:58 02/04/20 06:58 PG Care Time/CCT Total # of Minutes Spent Total Time Spent with Patient: Total time spent is greater than 50% in coordination of care (as documented) at patient's floor/unit and/or counseling patient: Coding Level of Care Code 58458 Subseq Hosp Care Lvl 3 Diagnoses Pneumonia J69.0 Aspiration pneumonia type: unspecified Laterality: right Lung location: unspecified part of lung Pneumonia type: aspiration pneumonia Pleural effusion J90 RENÉ (obstructive sleep apnea) G47.33 Morbid obesity E66.01
[2020-02-04] MEDS: TERAZOSIN HCL 5 MG CAP PO SCH (20:27)
[2020-02-05] MEDS: ALBUT/IPRATROP 3MG/0.5MG NEB 3 ML VIAL NEB SCH ×6 (02:51→22:47)
[2020-02-05] MEDS: PIPERACILLIN/TAZOBACTAM 4.5 GM in DEXTROSE 5% 100 ML IV SCH ×2 (03:33→16:23)
[2020-02-05] MEDS: LEVOTHYROXINE SODIUM 125 MCG TABLET PO SCH (05:44)
[2020-02-05] MEDS ORDERED: EPOETIN ALFA 4,000 UNIT/ML VIAL IV ONE (07:00)
[2020-02-05] MEDS ORDERED: SODIUM CHLORIDE 0.9% 1000ML 1,000 ML IV PRN (07:00)
[2020-02-05] MEDS ORDERED: HEPARIN SOD (PORCINE) 1000 UNIT/ML 10 ML VIAL IV ONE (07:00)
[2020-02-05 07:29] LABS: Hematocrit (blood only) 32.8 % (37-47); Mean Corpuscular Hemoglobin 29.6 pg (25-34); Mean Corpuscular Hgb Conc 30.5 g/dL (32-36); Mean Platelet Volume 10.5 fL (7.4-10.4); Platelet Count 259 K/uL (130-400); RDW Standard Deviation 70.9 fL (36.4-46.3); Red Blood Count 3.38 M/uL (4.2-5.4); White Blood Count 8.33 K/uL (4.8-10.8)
[2020-02-05 08:00] LABS: BUN Creatinine Ratio 6.6 (10-20); Calcium 7.4 mg/dl (8.5-10.1); Creatinine Clr Calc Pharmacy 10.2 ml/min; Est GFR (African American) 8.9; Est GFR (Non-African American) 7.7; Magnesium 1.9 mg/dl (1.8-2.4); Phosphorus 5.7 mg/dl (2.5-4.9); Potassium 3.6 mmol/L (3.5-5.1)
[2020-02-05] MEDS: ASPIRIN 81 MG ECTAB PO SCH (08:14)
[2020-02-05] MEDS: CARBIDOPA/LEVODOPA 25/100MG TAB PO SCH ×3 (08:14→18:46)
[2020-02-05] MEDS: ATORVASTATIN 40 MG TAB PO SCH (08:15)
[2020-02-05] MEDS: VENLAFAXINE HCL XR 75 MG CAPXR PO SCH (08:15)
[2020-02-05] MEDS: CYANOCOBALAMIN 500 MCG TABLET (VITAMIN B-12) PO SCH (08:16)
[2020-02-05] MEDS: ADVANCED PROBIOTIC 1250 MG CAPSULE PO SCH (08:16)
[2020-02-05] MEDS: CHOLECALCIFEROL 1,000 UNITS 25 MCG TAB PO SCH (08:16)
[2020-02-05] MEDS: INSULIN ASPART 100 UNITS/ML 3 ML PEN SC SCH ×4 (08:22→20:29)
[2020-02-05] MEDS: PREGABALIN 100 MG CAP PO SCH ×2 (08:23→20:29)
--- NOTE | 2020-02-05 08:29 | Pharmacy Report ---
Pharmacy Abx Dose Short Note - Date of Service February 05, 2020 - Assessment & Plan Assessment * 74 year old F receiving Vancomycin & Zosyn for treatment of pneumonia * Day #7 of antimicrobial therapy. * Leukocytosis improving (29k-->24k-->16k-->11k-->9k--> 8k). * 1st urine cx contaminated. Blood cultures with no growth to date * H/o MRSA pneumonia and possibility of aspiration. Multiple risk factors for resistant organism (HD dependence, recent hospitalization, recent receipt of broad spectrum abx, etc). Vancomycin + Zosyn appropriate empiric therapy. * HD treatment ordered today. Usual schedule: , , Plan Vancomycin * Pre-hemodialysis random level of 18.3 mcg/mL is therapeutic * Will give a one time Vancomycin dose of 500 mg (5 mg/kg) IV post-hemodialysis today. * Goal trough range is 15 - 20 mcg/mL. * Will order a random level prior to next hemodialysis session. Zosyn * 4.5 gm IV every 12 hours remains appropriate for hemodialysis. Pharmacy will continue to follow and will adjust dose/frequency as necessary. Thank you.
--- NOTE | 2020-02-05 09:04 | Hospitalist Progress Note ---
Date of Service February 05, 2020 Assessment & Plan (1) ESRD (end stage renal disease) on dialysis: ASSESSMENT AND PLAN: This is a 74-year-old female with past medical history significant for end-stage renal disease, Parkinson disease, hypertension, hyperlipidemia, history of non- ST elevated myocardial infarction, history of cerebrovascular accident, history of chronic heart failure with preserved EF, presents with lethargy. Metabolic encephalopathy d/t poss. aspiration pna 1. Lethargy. The patient had dialysis 1 day [facility], generally is worn out after dialysis, generally wakes up at 7:30 in the morning, she did not wake up until 1:00pm and she was just confused and staring. Even on CPAP, her sats were low, in 70s and 80s at home. Her WBC elevated to 29,000 in the ER. Chest x-ray, questionable pulmonary edema versus diffuse haziness in the right hemithorax. CT of the head is unremarkable. The patient has history of lethargy in the past. In November, she was admitted with altered mental status, thought to be from sepsis and aspiration and also medications. At that time, meclizine, oxybutynin, and Mirapex had been discontinued. Empirically started on Vancomycin and Zosyn. Follow the cultures. We will follow the ABG. Her mental status is much improved. CT of the chest as x-ray shows some right-sided haziness. CT chest : Moderate right pleural effusion. Consolidation within the right upper and lower lobes posteriorly. This favors atelectasis from the pleural effusion. A pneumonia could also have a similar appearance. There is moderate narrowing of the bronchus intermedius with mass effect posteriorly. This could be due to the pleural effusion on underlying lesion. Follow-up bronchoscopy or chest CT recommended once the effusion has resolved. Will follow the cultures and closely monitor in the tele floor. Dialysis catheter site seems okay. Hypoxia at home on CPAP, currently saturating fine at 2 liters. WBC 29K, now normalized Pulmonary medicine consulted given R sided loculated pl. effusion, recurrent PNA, poss. empyema, discussed w/ Dr. Dial, plan for R sided thoracentesis Pt underwent R sided thoracentesis on 02/02, 500 cc of yellow cloudy fluid removed, fluid c/w parapneumonic effusion, pH 6.17, glc 52, sent for cultx , (exudative per Light's criteria) Recommend to cont. Abx, consider CT VATS Pl. fluid cultx (02/03/20) - no growth, gram stain - no organisms seen, moderate polys Blood cultx (01/30/20) - no growth in 5 days Plan to review R pl. effusion today (02/04) and assess for poss. chest tube placement Urine cltx - mixed rebecca - repeated -> luis eduardo, nonsignificant Loose stools - obtained stool cultx, C. diff negative Nausea, emesis - now resolved Speech eval - no aspiration 02/01 2. History of sleep apnea. Continue CPAP at bedtime. 3. History of MRSA in the sputum in the past.Abx as above. Will follow cx 4. History of cerebrovascular accident, on Lipitor and aspirin, continue same. 5. History of chronic diastolic congestive heart failure, currently on dialysis. 6. End-stage renal disease, on hemodialysis. HD on 01/31, pt hypotensive w/ nausea and emesis. Not able to remove fluid d/t hypotension. Currently pt on HD (02/02) no issues, no nausea, plan to remove 1.5 L of fluid. Nephrology following. 7. History of aspiration pneumonia. Speech evaluation obtained. Now ok to eat, no aspiration, however nausea and emesis on 01/31. CT chest : Moderate right pleural effusion. Consolidation within the right upper and lower lobes posteriorly. This favors atelectasis from the pleural effusion. A pneumonia could also have a similar appearance. There is moderate narrowing of the bronchus intermedius with mass effect posteriorly. This could be due to the pleural effusion on underlying lesion. Management as above. 8. History of pneumothorax on the right side. No pneumothorax now. 9. Diabetes. Not on medication at home. Current HbA1c 5.0% insulin sliding scale while inpt 10. Prolonged qt. to avoid qt prolonging drugs. Follow ekg in am, cardiology reviewed 11. HTN On isosorbide mononitrate, terazosin. Holding amlodipine. Monitor BP as its somewhat on lower side. Now BP improved. 12. Hx of cva on aspirin and statin. 13. Parkinson disease. On Sinemet. 14. Hypothyroidism. Synthroid. 15. Hx of NSTEMI. On aspirin, statin and nitrate DVT prophylaxis. SCDs. heparin for now Disposition, continue tele, PT/OT prior to discharge. Social service to help with discharge planning. Likely [facility] Admission and Anticipated Discharge Date Admission Date: January 30, 2020 Subjective Pt is laying in bed in NAD, currently on HD, comfortable, answers questions appropriately. She is hard of hearing. No fever, chills, chest pain, mild dyspnea, occasional cough. Still using about 2 L of suppl. O2. Has R pl. effusion, pna, pulmonary medicine consulted, pt underwent thoracentesis. Plan to review pl. effuson w/ US today, poss. chest tube placement. Review of Systems Review of Systems: All systems reviewed & are unremarkable except as noted in HPI & below Constitutional: no fever and no chills Respiratory: + dyspnea (mild); no cough Cardiovascular: no chest pain and no palpitations Gastrointestinal: no abdominal pain, no nausea and no vomiting Physical Exam Physical Exam: Gen- elderly female laying in bed, AAO x 3, NAD, Hard of Hearing on NC 2L Head- NCAT, EOMI,Anicteric Sclera, No Posterior Pharyngeal Erythema Neck-Supple, No JVD Lungs- decreased breath sounds, + bibasilar crackles, R>L, no wheezing Chest- regular, no murmurs Abdomen- Soft, Bowel Sounds Present, Non Tender, Non Distended, No Rigidity, No Guarding : Kirby catheter placed, drains yellow urine Extremities-No Cyanosis, No Clubbing, No Edema, moves extremities spontaneously Neuro- alert and oriented and answering questions appropriately, speech fluent, no facial asymmetry, moves extremities but appears generally weak Psych- Normal Mood Results & Data Results & Data ([facility]) Vital Signs (Past 12 Hours) Vital Signs Temp Pulse Pulse Pulse Resp BP Pulse Ox 02/05/20 08:16 37.0 C 79 18 131/74 96 02/05/20 07:14 72 18 93 02/05/20 04:24 37.1 C 72 16 136/68 95 02/05/20 02:52 66 20 96 02/05/20 02:51 66 20 96 02/05/20 00:27 37.2 C 72 18 102/68 96 02/04/20 23:10 76 02/04/20 22:26 69 18 94 02/04/20 22:25 69 18 94 Laboratory Results 02/05/20 02/05/20 02/05/20 Range/Units 07:39 07:08 07:08 WBC (4.8-10.8) K/uL RBC (4.2-5.4) M/uL Hgb (12.0-16.0) g/dL Hct (37-47) % MCV (80-100) fL MCH (25-34) pg MCHC (32-36) g/dL RDW Std Deviation (36.4-46.3) fL RDW Coeff of Bhavin (11.5-14.5) % Plt Count (130-400) K/uL MPV (7.4-10.4) fL Sodium 138 (136-145) mmol/L Potassium 3.6 (3.5-5.1) mmol/L Chloride 106 (98-107) mmol/L Carbon Dioxide 24 (21-32) mmol/L Anion Gap 8.0 (3-11) BUN 34 H (7-18) mg/dl Creatinine 5.16 H* D (0.6-1.2) mg/dl Est Cr Clr Drug Dosing 10.2 ml/min Est GFR ( Amer) 8.9 Est GFR (Non-Af Amer) 7.7 BUN/Creatinine Ratio 6.6 L (10-20) Glucose 91 (70-99) mg/dl POC Glucose 103 H (70-99) mg/dl Calcium 7.4 L (8.5-10.1) mg/dl Phosphorus 5.7 H (2.5-4.9) mg/dl Magnesium 1.9 (1.8-2.4) mg/dl Random Vancomycin 18.3 mcg/ml 02/05/20 02/04/20 02/04/20 Range/Units 07:08 20:18 16:42 WBC 8.33 (4.8-10.8) K/uL RBC 3.38 L (4.2-5.4) M/uL Hgb 10.0 L (12.0-16.0) g/dL Hct 32.8 L (37-47) % MCV 97.0 (80-100) fL MCH 29.6 (25-34) pg MCHC 30.5 L (32-36) g/dL RDW Std Deviation 70.9 H (36.4-46.3) fL RDW Coeff of Bhavin 20.0 H (11.5-14.5) % Plt Count 259 (130-400) K/uL MPV 10.5 H (7.4-10.4) fL Sodium (136-145) mmol/L Potassium (3.5-5.1) mmol/L Chloride (98-107) mmol/L Carbon Dioxide (21-32) mmol/L Anion Gap (3-11) BUN (7-18) mg/dl Creatinine (0.6-1.2) mg/dl Est Cr Clr Drug Dosing ml/min Est GFR ( Amer) Est GFR (Non-Af Amer) BUN/Creatinine Ratio (10-20) Glucose (70-99) mg/dl POC Glucose 109 H 120 H (70-99) mg/dl Calcium (8.5-10.1) mg/dl Phosphorus (2.5-4.9) mg/dl Magnesium (1.8-2.4) mg/dl Random Vancomycin mcg/ml 02/04/20 Range/Units 11:44 WBC (4.8-10.8) K/uL RBC (4.2-5.4) M/uL Hgb (12.0-16.0) g/dL Hct (37-47) % MCV (80-100) fL MCH (25-34) pg MCHC (32-36) g/dL RDW Std Deviation (36.4-46.3) fL RDW Coeff of Bhavin (11.5-14.5) % Plt Count (130-400) K/uL MPV (7.4-10.4) fL Sodium (136-145) mmol/L Potassium (3.5-5.1) mmol/L Chloride (98-107) mmol/L Carbon Dioxide (21-32) mmol/L Anion Gap (3-11) BUN (7-18) mg/dl Creatinine (0.6-1.2) mg/dl Est Cr Clr Drug Dosing ml/min Est GFR ( Amer) Est GFR (Non-Af Amer) BUN/Creatinine Ratio (10-20) Glucose (70-99) mg/dl POC Glucose 109 H (70-99) mg/dl Calcium (8.5-10.1) mg/dl Phosphorus (2.5-4.9) mg/dl Magnesium (1.8-2.4) mg/dl Random Vancomycin mcg/ml Medications Administered Current Inpatient Medications Acetaminophen (Acetaminophen 325 Mg Tab) 650 mg PO Q4H PRN PRN Reason: Pain or Fever Stop: 02/29/20 22:52 Last Admin: 02/03/20 10:49 Dose: 650 mg Documented by: Albuterol (Albut/Ipratrop 3mg/0.5mg Neb 3 Ml Vial) 3 ml NEB Q4R [facility] Stop: 03/04/20 10:59 Last Admin: 02/05/20 07:13 Dose: 3 ml Documented by: Aspirin (Aspirin 81 Mg Ectab) 162 mg PO DAILY [facility] Stop: 03/01/20 08:59 Last Admin: 02/05/20 08:14 Dose: 162 mg Documented by: Atorvastatin Calcium (Atorvastatin 40 Mg Tab) 80 mg PO QAM [facility] Stop: 03/01/20 08:59 Last Admin: 02/05/20 08:15 Dose: 80 mg Documented by: Calcium Acetate (Calcium Acetate 667 Mg Cap/Tab) 667 mg PO TIDM PRN PRN Reason: .SNACKS Stop: 03/01/20 07:59 Last Admin: 02/01/20 08:13 Dose: 667 mg Documented by: Carbidopa/Levodopa (Carbidopa/Levodopa 25/100mg Tab) 1 tab PO TIDM [facility] Stop: 03/01/20 07:59 Last Admin: 02/05/20 08:14 Dose: 1 tab Documented by: Cyanocobalamin (Cyanocobalamin 500 Mcg Tablet (Vitamin B-12)) 1,000 mcg PO QAM [facility] Stop: 03/01/20 08:59 Last Admin: 02/05/20 08:16 Dose: 1,000 mcg Documented by: Dextrose (Dextrose 50% 50 Ml Syringe) 25 - 50 ml IV UD PRN; Protocol PRN Reason: Hypoglycemia Protocol Stop: 02/29/20 23:44 Glucagon (Glucagon For Inj 1 Mg Vial) 1 mg SQ UD PRN; Protocol PRN Reason: Hypoglycemia Protocol Stop: 02/29/20 23:44 Glucose (Glucose 40% Gel 15 Gm Tube) 15 - 30 gm PO UD PRN; Protocol PRN Reason: Hypoglycemia Protocol Stop: 02/29/20 23:44 Glucose (Glucose 10 Tabs/Tube) 4 - 8 tabs PO UD PRN; Protocol PRN Reason: Hypoglycemia Protocol Stop: 02/29/20 23:44 Piperacillin Sod/Tazobactam (Sod 4.5 gm/ Dextrose) 120 mls @ 30 mls/hr IV Q12H [facility]; Protocol Stop: 02/07/20 03:59 Last Admin: 02/05/20 03:33 Dose: 28.8 mls/hr Documented by: Sodium Chloride (Nss 1000ml) 1,000 mls @ 0 mls/hr IV .Q0M PRN PRN Reason: For Hemodialysis Use ONLY Stop: 02/05/20 12:59 Vancomycin HCl 500 mg/ Sodium (Chloride) 110 mls @ 110 mls/hr IV .AFTER HD SESSION COMPLETE ONE; Protocol Stop: 02/05/20 16:59 Insulin Aspart (Insulin Aspart 100 Units/Ml 3 Ml Pen) 0 units SC ACHS [facility] Stop: 03/01/20 07:29 Last Admin: 02/05/20 08:22 Dose: Not Given Documented by: Isosorbide Mononitrate (Isosorbide [place] Extended Rel 30 Mg Tabcr) 30 mg PO DAILY [facility] Stop: 03/01/20 08:59 Last Admin: 02/04/20 08:04 Dose: 30 mg Documented by: Lactobacillus Acidoph/Casei/Rhamnos (Advanced Probiotic 1250 Mg Capsule) 2 cap PO DAILY [facility] Stop: 03/04/20 11:59 Last Admin: 02/05/20 08:16 Dose: 2 cap Documented by: Levothyroxine Sodium (Levothyroxine Sodium 125 Mcg Tablet) 125 mcg PO DAILYBB [facility] Stop: 03/01/20 06:29 Last Admin: 02/05/20 05:44 Dose: 125 mcg Documented by: Miscellaneous (Carbohydrates For Hypoglycemia ) 15 - 30 gm PO UD PRN PRN Reason: Hypoglycemia Treatment Stop: 02/29/20 23:44 Miscellaneous Information (Piperacill/Tazobac Consult Active) 1 ea N/A UD PRN PRN Reason: Consult Stop: 02/29/20 18:39 Miscellaneous Information (Vancomycin Consult Active) 1 ea N/A UD PRN PRN Reason: Consult Stop: 02/29/20 22:52 Nitroglycerin (Nitroglycerin Sl 0.4 Mg/Tab Tab) 0.4 mg SL UD PRN PRN Reason: Chest Pain Stop: 02/29/20 22:52 Pregabalin (Pregabalin 100 Mg Cap) 100 mg PO BID [facility] Stop: 03/01/20 08:59 Last Admin: 02/05/20 08:23 Dose: 100 mg Documented by: Terazosin HCl (Terazosin Hcl 5 Mg Cap) 5 mg PO HS [facility] Stop: 03/01/20 20:59 Last Admin: 02/04/20 20:27 Dose: 5 mg Documented by: Venlafaxine HCl (Venlafaxine Hcl Xr 75 Mg Capxr) 75 mg PO QAM [facility] Stop: 03/01/20 08:59 Last Admin: 02/05/20 08:15 Dose: 75 mg Documented by: Vitamin D (Cholecalciferol 1,000 Units 25 Mcg Tab) 5,000 units PO DAILY [facility] Stop: 03/01/20 08:59 Last Admin: 02/05/20 08:16 Dose: 5,000 units Documented by:
--- NOTE | 2020-02-05 09:27 | XRay Report ---
XR chest 1V portable HISTORY: Follow-up. Status post thoracentesis. COMPARISON: Chest 02/03/2020. FINDINGS: No pneumothorax. Slight increase in size in the partially loculated small right pleural eff usion. The heart remains enlarged. Left central venous catheter terminates in the right atrium. Mild congestive change persists. IMPRESSION: Slight increase in size in the partially loculated small right pleural effusion. ACT 112: Negative or not required by law. Electronically signed by: Carlos Jenkins M.D. 02/05/2020 9:26 AM
[2020-02-05] MEDS: HEPARIN SOD (PORCINE) 1000 UNIT/ML 10 ML VIAL IV SCH ×2 (10:33→10:34)
[2020-02-05] MEDS: ISOSORBIDE MONO EXTENDED REL 30 MG TABCR PO SCH (14:54)
[2020-02-05] MEDS ORDERED: VANCOMYCIN HCL 500 MG in 0.9 % SODIUM CHLORIDE 100 ML IV ONE (16:00)
--- NOTE | 2020-02-05 16:12 | Pulmonology Progress Note ---
Date of Service February 05, 2020 Assessment & Plan (1) Pneumonia: CT chest 01/30/2020 personally reviewed: Loculated large right-sided pleural effusion is appreciated with right lower lobe atelectasis partial. Insignificant mediastinal lymphadenopathy air trapping appreciated. This pleural effusion was not appreciated on chest x-ray done 01/06/2020. --Right sided loculated pleural effusion In the patient with leukocytosis on presentation and end-stage renal disease Likelihood of parapneumonic effusion is high in the differential Blood culture and sputum culture 01/30/2020 --> Negative to date S/p thoracentesis 02/03/2020, 500 mL cloudy yellow fluid removed. --> Exudative as per lights criteria. Parapneumonic if you look at the pH and the glucose Pleural fluid: LDH 2062, protein 4.7, glucose 52, pH 7.16 Serum: LDH 220, protein 6.7 --RENÉ Compliant with CPAP Plan: Chest x-ray from today shows little bit worsening of the right-sided pleural effusion. I will look with ultrasound again at bedside if there is a good pocket to put a chest tube in we will do so. Please note the above document was generated using voice recognition software. It may contain grammatical, syntax or spelling errors.Any formal questions or concerns about the content, text or information contained within the body of this dictation should be directly addressed to the provider for clarification. Aspiration pneumonia type: unspecified Laterality: right Lung location: unspecified part of lung Pneumonia type: aspiration pneumonia Qualified Code(s): J69.0 - Pneumonitis due to inhalation of food and vomit (2) Pleural effusion: (3) RENÉ (obstructive sleep apnea): (4) Morbid obesity: Admission and Anticipated Discharge Date Admission Date: January 30, 2020 Subjective Patient seen and examined at bedside. Patient was getting dialysis at time of examination. Denies any chest pain, no shortness of breath. Good appetite. No nausea or vomiting. Afebrile. Review of Systems Review of Systems: All systems reviewed & are unremarkable except as noted in Subjective Physical Exam Physical Exam: Constitutional: No acute distress HEENT: EOMI, PERRLA, hard to hear Respiratory system: Decreased air entry bilaterally, positive crackles bilateral lower lobes more on the right side, no wheeze, no rhonchi CVS: S1-S2 positive, no murmurs or gallops, left-sided permacath Abdomen: Soft, nontender, nondistended, positive bowel sounds x4, obese Extremities: +2 pulses bilaterally radialis/ dorsalis pedis, no cyanosis, no edema Neuro: Awake alert oriented x3 Psych: Normal mood and affect Skin: no rashes, warm and dry Lymphatic: no cervical or axillary lymphadenopathy Results & Data Results & Data ([facility]) Vital Signs (Past 12 Hours) Vital Signs Temp Pulse Pulse Pulse Resp BP BP 02/05/20 16:09 67 02/05/20 15:18 77 16 02/05/20 13:50 36.9 C 70 17 126/64 02/05/20 12:50 37.0 C 61 111/60 02/05/20 12:40 58 L 106/51 L 02/05/20 12:20 57 L 113/47 L 02/05/20 12:00 57 L 123/55 L 02/05/20 11:40 63 103/85 02/05/20 11:20 58 L 124/50 L 02/05/20 11:00 45 L 132/36 L 02/05/20 10:40 45 L 112/59 L 02/05/20 10:20 63 149/62 H 02/05/20 10:00 66 137/56 L 02/05/20 09:40 66 119/68 02/05/20 09:20 66 131/64 02/05/20 09:08 37.1 C 81 02/05/20 08:16 37.0 C 79 18 131/74 02/05/20 07:14 72 18 02/05/20 07:00 72 02/05/20 04:24 37.1 C 72 16 136/68 Pulse Ox 02/05/20 16:09 02/05/20 15:18 94 02/05/20 13:50 94 02/05/20 12:50 02/05/20 12:40 02/05/20 12:20 02/05/20 12:00 02/05/20 11:40 02/05/20 11:20 02/05/20 11:00 02/05/20 10:40 02/05/20 10:20 02/05/20 10:00 02/05/20 09:40 02/05/20 09:20 02/05/20 09:08 02/05/20 08:16 96 02/05/20 07:14 93 02/05/20 07:00 02/05/20 04:24 95 02/05/20 07:08 02/05/20 07:08 PG Care Time/CCT Total # of Minutes Spent Total Time Spent with Patient: Total time spent is greater than 50% in coordination of care (as documented) at patient's floor/unit and/or counseling patient: Coding Level of Care Code 38197 Subseq Hosp Care Lvl 3 Diagnoses Pneumonia J69.0 Aspiration pneumonia type: unspecified Laterality: right Lung location: unspecified part of lung Pneumonia type: aspiration pneumonia Pleural effusion J90 RENÉ (obstructive sleep apnea) G47.33 Morbid obesity E66.01
[2020-02-05] MEDS ORDERED: LIDOCAINE HCL 1% 20 ML VIAL ONE (18:29)
[2020-02-05] MEDS ORDERED: LIDOCAINE HCL 1% 20 ML VIAL INJ ONE (18:56)
[2020-02-05] MEDS: TERAZOSIN HCL 5 MG CAP PO SCH (19:44)
--- NOTE | 2020-02-05 19:44 | Procedure Note ---
Procedure Note Date of Service February 05, 2020 Procedure: Pigtail chest tube insertion Insurance Rater: Dr. Ayaz Dial Indication: Right-sided parapneumonic effusion complicated Consent: Signed by patient and verified with timeout prior to procedure Anesthesia: 1% lidocaine without epinephrine local Procedure: Consent was verified and timeout performed. Appropriate imaging studies were reviewed prior to the procedure. Patient was placed in a seated position. Appropriate site above the diaphragm on the right parascapular line fourth intercostal space for chest tube insertion was selected. The skin was prepped and draped in normal sterile fashion. Lidocaine was used for local analgesia. Fluid was aspirated via the finder needle. A small skin mary was made with the scalpel and the catheter over the needle apparatus was advanced over the rib into the pleural space. With the help of guidewire and Seldinger technique, 14 Vietnamese pigtail catheter was inserted and connected to Pleur-evac. No air leak appreciated after that. Chest x-ray to follow The patient tolerated the procedure without obvious complication Complications: None Blood loss: Less than 2 cc. Coding CPT Codes Pulmonary/Thoracic - Pulmonary and Thoracic: 36161 Tube thoracostomy ([id number]) Pulmonary/Thoracic - Pulmonary and Thoracic: 33044 US, Chest, real time with imaging documentation ([id number]) Pulmonary/Thoracic - Pulmonary and Thoracic: 29189 Lyse chest fibrin initial day ([id number]) [facility] Procedure Codes (Charges) Pulmonary/Thoracic Procedure 1: Pulmonary and Thoracic: 19394 Tube thoracostomy Procedure 2: Pulmonary and Thoracic: 70592 US, Chest, real time with imaging documentation Procedure 3: Pulmonary and Thoracic: 05901 Lyse chest fibrin initial day
--- NOTE | 2020-02-05 19:56 | XRay Report ---
XR chest 1V portable HISTORY: s/p chest tube placement COMPARISON: Chest 02/05/2020. FINDINGS: Interval placement of a right pleural pigtail catheter terminating in the right lateral serenity g base. Near-complete resolution of the small right pleural effusion. There is a trace right basilar pneumothorax. The heart remains enlarged. Left jugular catheter terminates at the right atrium. This remains unchanged. Mild pulmonary vascular congestion persists. IMPRESSION: Interval placement of a right-sided chest tube with near complete resolution of the small right pleur al effusion. There is a trace right basilar pneumothorax. ACT 112: Negative or not required by law. Electronically signed by: Carlos Jenkins M.D. 02/05/2020 7:55 PM
[2020-02-05] MEDS ORDERED: LIDOCAINE HCL 1% INFIL ONE ×2 (20:30→22:00)
[2020-02-05] MEDS: DORNASE ALFA 5 ML in SYRINGE 25 ML IPL SCH (22:37)
[2020-02-05] MEDS: ALTEPLASE, RECOMBINANT 10 MG in SYRINGE 50 ML IPL SCH (22:37)
[2020-02-06] MEDS: ALBUT/IPRATROP 3MG/0.5MG NEB 3 ML VIAL NEB SCH ×6 (03:29→22:55)
[2020-02-06] MEDS: PIPERACILLIN/TAZOBACTAM 4.5 GM in DEXTROSE 5% 100 ML IV SCH ×2 (04:06→16:19)
[2020-02-06] MEDS: ACETAMINOPHEN 325 MG TAB PO PRN (04:31)
[2020-02-06 06:15] LABS: Hemoglobin 10.5 g/dL (12.0-16.0); Mean Corpuscular Hemoglobin 29.5 pg (25-34); Mean Corpuscular Volume 98.3 fL (80-100); Mean Platelet Volume 10.5 fL (7.4-10.4); Platelet Count 332 K/uL (130-400); RDW Coefficient of Variation 19.8 % (11.5-14.5); RDW Standard Deviation 70.8 fL (36.4-46.3); Red Blood Count 3.56 M/uL (4.2-5.4); White Blood Count 11.29 K/uL (4.8-10.8)
[2020-02-06] MEDS: LEVOTHYROXINE SODIUM 125 MCG TABLET PO SCH (06:24)
[2020-02-06] MEDS ORDERED: traMADol HCL 50 MG TABLET PO STA (06:33)
[2020-02-06 06:46] LABS: BUN Creatinine Ratio 5.5 (10-20); Calcium 8.3 mg/dl (8.5-10.1); Creatinine Clr Calc Pharmacy 14.1 ml/min; Est GFR (African American) 13.2; Est GFR (Non-African American) 11.4; Potassium 3.6 mmol/L (3.5-5.1)
[2020-02-06] MEDS: LIDOCAINE 5% 1 PATCH TD SCH ×2 (07:50→15:56)
[2020-02-06] MEDS: ISOSORBIDE MONO EXTENDED REL 30 MG TABCR PO SCH (07:52)
[2020-02-06] MEDS: CARBIDOPA/LEVODOPA 25/100MG TAB PO SCH ×3 (07:52→16:20)
[2020-02-06] MEDS: CYANOCOBALAMIN 500 MCG TABLET (VITAMIN B-12) PO SCH (07:53)
[2020-02-06] MEDS: ATORVASTATIN 40 MG TAB PO SCH (07:53)
[2020-02-06] MEDS: ADVANCED PROBIOTIC 1250 MG CAPSULE PO SCH (07:53)
[2020-02-06] MEDS: CHOLECALCIFEROL 1,000 UNITS 25 MCG TAB PO SCH (07:55)
[2020-02-06] MEDS: VENLAFAXINE HCL XR 75 MG CAPXR PO SCH (07:55)
[2020-02-06] MEDS: ASPIRIN 81 MG ECTAB PO SCH (07:55)
[2020-02-06] MEDS: PREGABALIN 100 MG CAP PO SCH ×2 (07:58→20:27)
--- NOTE | 2020-02-06 09:10 | XRay Report ---
XR chest 1V portable HISTORY: Chest tube placement. Follow-up. COMPARISON: Chest 02/05/2020. FINDINGS: Right basilar pleural chest tube is again noted. No pneumothorax. Trace right pleural effus ion remains unchanged. The heart is enlarged. Left jugular catheter terminates at the right atrium. T his is also unchanged. There is mild central pulmonary vascular congestion without overt edema. IMPRESSION: Right basilar chest tube is unchanged in position. A trace right pleural effusion persists. No pneumo thorax. ACT 112: Negative or not required by law. Electronically signed by: Carlos Jenkins M.D. 02/06/2020 9:09 AM
[2020-02-06] MEDS: ALTEPLASE, RECOMBINANT 10 MG in SYRINGE 50 ML IPL SCH ×2 (10:11→22:02)
[2020-02-06] MEDS: INSULIN ASPART 100 UNITS/ML 3 ML PEN SC SCH ×4 (10:59→20:48)
--- NOTE | 2020-02-06 11:11 | Hospitalist Progress Note ---
Date of Service February 06, 2020 Assessment & Plan (1) ESRD (end stage renal disease) on dialysis: ASSESSMENT AND PLAN: This is a 74-year-old female with past medical history significant for end-stage renal disease, Parkinson disease, hypertension, hyperlipidemia, history of non- ST elevated myocardial infarction, history of cerebrovascular accident, history of chronic heart failure with preserved EF, presents with lethargy. Metabolic encephalopathy d/t poss. aspiration pna 1. Lethargy. The patient had dialysis 1 day DEBLOCKER, generally is worn out after dialysis, generally wakes up at 7:30 in the morning, she did not wake up until 1:00pm and she was just confused and staring. Even on CPAP, her sats were low, in 70s and 80s at home. Her WBC elevated to 29,000 in the ER. Chest x-ray, questionable pulmonary edema versus diffuse haziness in the right hemithorax. CT of the head is unremarkable. The patient has history of lethargy in the past. In November, she was admitted with altered mental status, thought to be from sepsis and aspiration and also medications. At that time, meclizine, oxybutynin, and Mirapex had been discontinued. Empirically started on Vancomycin and Zosyn. Follow the cultures. We will follow the ABG. Her mental status is much improved. CT of the chest as x-ray shows some right-sided haziness. CT chest : Moderate right pleural effusion. Consolidation within the right upper and lower lobes posteriorly. This favors atelectasis from the pleural effusion. A pneumonia could also have a similar appearance. There is moderate narrowing of the bronchus intermedius with mass effect posteriorly. This could be due to the pleural effusion on underlying lesion. Follow-up bronchoscopy or chest CT recommended once the effusion has resolved. Will follow the cultures and closely monitor in the tele floor. Dialysis catheter site seems okay. Hypoxia at home on CPAP, currently saturating fine at 2 liters. WBC 29K, now normalized Pulmonary medicine consulted given R sided loculated pl. effusion, recurrent PNA, poss. empyema, discussed w/ Dr. Dial Pt underwent R sided thoracentesis on 02/02, 500 cc of yellow cloudy fluid removed, fluid c/w parapneumonic effusion, pH 6.17, glc 52, sent for cultx , (exudative per Light's criteria) Recommend to cont. Abx, consider CT VATS Pl. fluid cultx (02/03/20) - no growth, gram stain - no organisms seen, moderate polys Blood cultx (01/30/20) - no growth in 5 days Reviewed R pl. effusion (02/04) and re-assessed for poss. chest tube placement, now s/p chest tube placement (02/05/20) Urine cltx - mixed rebecca - repeated -> luis eduardo, nonsignificant Loose stools - obtained stool cultx, C. diff negative, resolved Nausea, emesis - now resolved Speech eval - no aspiration 02/01 2. History of sleep apnea. Continue CPAP at bedtime. 3. History of MRSA in the sputum in the past.Abx as above. Will follow cx 4. History of cerebrovascular accident, on Lipitor and aspirin, continue same. 5. History of chronic diastolic congestive heart failure, currently on dialysis. 6. End-stage renal disease, on hemodialysis. HD on 01/31, pt hypotensive w/ nausea and emesis. Not able to remove fluid d/t hypotension. No further episodes of hypotension and nausea during HD. Nephrology following. 8. History of pneumothorax on the right side. No pneumothorax now. 9. Diabetes. Not on medication at home. Current HbA1c 5.0% insulin sliding scale while inpt 10. Prolonged qt. to avoid qt prolonging drugs. Follow ekg in am, cardiology reviewed 11. HTN On isosorbide mononitrate, terazosin. Holding amlodipine. Monitor BP as its somewhat on lower side. Now BP improved. 12. Hx of cva on aspirin and statin. 13. Parkinson disease. On Sinemet. 14. Hypothyroidism. Synthroid. 15. Hx of NSTEMI. On aspirin, statin and nitrate DVT prophylaxis. SCDs. heparin for now Disposition, continue tele, PT/OT prior to discharge. Social service to help with discharge planning. Likely [facility] Admission and Anticipated Discharge Date Admission Date: January 30, 2020 Subjective Pt underwent chest tube placement last evening. Now complains R shoulder pain. No chest pain, or increased shortness of breath, occasional cough. No fever, chills. Continues to use suppl. O2. Review of Systems Review of Systems: All systems reviewed & are unremarkable except as noted in HPI & below Constitutional: no fever and no chills Respiratory: + cough (occasional) and + dyspnea (mild) Cardiovascular: no chest pain Gastrointestinal: no abdominal pain, no nausea and no vomiting Physical Exam Physical Exam: Gen- elderly female laying in bed, AAO x 3, NAD, Hard of Hearing on NC 2-3L Head- NCAT, EOMI,Anicteric Sclera, No Posterior Pharyngeal Erythema Neck-Supple, No JVD Lungs- decreased breath sounds, + bibasilar crackles, R>L, no wheezing Chest- regular, no murmurs, R chest tube placed bloody drainage note Abdomen- Soft, Bowel Sounds Present, Non Tender, Non Distended, No Rigidity, No Guarding : Kirby catheter placed, drains yellow urine Extremities-No Cyanosis, No Clubbing, No Edema, moves extremities spontaneously Neuro- alert and oriented and answering questions appropriately, very hard of hearing, speech fluent, no facial asymmetry, moves extremities but appears generally weak Psych- Normal Mood Results & Data Results & Data ([facility]) Vital Signs (Past 12 Hours) Vital Signs Temp Pulse Pulse Pulse Resp BP Pulse Ox 02/06/20 10:57 53 L 16 97 02/06/20 08:00 37.0 C 89 18 134/64 98 02/06/20 07:21 50 L 18 93 02/06/20 04:11 36.7 C 80 18 144/89 H 95 02/06/20 03:29 68 18 96 02/06/20 00:00 36.6 C 76 18 116/68 95 02/05/20 23:28 78 Laboratory Results 02/06/20 02/06/20 02/06/20 Range/Units 07:23 05:53 05:53 WBC 11.29 H (4.8-10.8) K/uL RBC 3.56 L (4.2-5.4) M/uL Hgb 10.5 L (12.0-16.0) g/dL Hct 35.0 L (37-47) % MCV 98.3 (80-100) fL MCH 29.5 (25-34) pg MCHC 30.0 L (32-36) g/dL RDW Std Deviation 70.8 H (36.4-46.3) fL RDW Coeff of Bhavin 19.8 H (11.5-14.5) % Plt Count 332 (130-400) K/uL MPV 10.5 H (7.4-10.4) fL Sodium 139 (136-145) mmol/L Potassium 3.6 (3.5-5.1) mmol/L Chloride 106 (98-107) mmol/L Carbon Dioxide 27 (21-32) mmol/L Anion Gap 6.0 (3-11) BUN 21 H (7-18) mg/dl Creatinine 3.73 H D (0.6-1.2) mg/dl Est Cr Clr Drug Dosing 14.1 ml/min Est GFR ( Amer) 13.2 Est GFR (Non-Af Amer) 11.4 BUN/Creatinine Ratio 5.5 L (10-20) Glucose 101 H (70-99) mg/dl POC Glucose 104 H (70-99) mg/dl Calcium 8.3 L (8.5-10.1) mg/dl 02/05/20 02/05/20 02/05/20 Range/Units 20:27 16:32 13:48 WBC (4.8-10.8) K/uL RBC (4.2-5.4) M/uL Hgb (12.0-16.0) g/dL Hct (37-47) % MCV (80-100) fL MCH (25-34) pg MCHC (32-36) g/dL RDW Std Deviation (36.4-46.3) fL RDW Coeff of Bhavin (11.5-14.5) % Plt Count (130-400) K/uL MPV (7.4-10.4) fL Sodium (136-145) mmol/L Potassium (3.5-5.1) mmol/L Chloride (98-107) mmol/L Carbon Dioxide (21-32) mmol/L Anion Gap (3-11) BUN (7-18) mg/dl Creatinine (0.6-1.2) mg/dl Est Cr Clr Drug Dosing ml/min Est GFR ( Amer) Est GFR (Non-Af Amer) BUN/Creatinine Ratio (10-20) Glucose (70-99) mg/dl POC Glucose 124 H 175 H 77 (70-99) mg/dl Calcium (8.5-10.1) mg/dl Medications Administered Current Inpatient Medications Acetaminophen (Acetaminophen 325 Mg Tab) 650 mg PO Q4H PRN PRN Reason: Pain or Fever Stop: 02/29/20 22:52 Last Admin: 02/06/20 04:31 Dose: 650 mg Documented by: Albuterol (Albut/Ipratrop 3mg/0.5mg Neb 3 Ml Vial) 3 ml NEB Q4R [facility] Stop: 03/04/20 10:59 Last Admin: 02/06/20 10:56 Dose: 3 ml Documented by: Aspirin (Aspirin 81 Mg Ectab) 162 mg PO DAILY [facility] Stop: 03/01/20 08:59 Last Admin: 02/06/20 07:55 Dose: 162 mg Documented by: Atorvastatin Calcium (Atorvastatin 40 Mg Tab) 80 mg PO QAM [facility] Stop: 03/01/20 08:59 Last Admin: 02/06/20 07:53 Dose: 80 mg Documented by: Calcium Acetate (Calcium Acetate 667 Mg Cap/Tab) 667 mg PO TIDM PRN PRN Reason: .SNACKS Stop: 03/01/20 07:59 Last Admin: 02/01/20 08:13 Dose: 667 mg Documented by: Carbidopa/Levodopa (Carbidopa/Levodopa 25/100mg Tab) 1 tab PO TIDM [facility] Stop: 03/01/20 07:59 Last Admin: 02/06/20 07:52 Dose: 1 tab Documented by: Cyanocobalamin (Cyanocobalamin 500 Mcg Tablet (Vitamin B-12)) 1,000 mcg PO QAM [facility] Stop: 03/01/20 08:59 Last Admin: 02/06/20 07:53 Dose: 1,000 mcg Documented by: Dextrose (Dextrose 50% 50 Ml Syringe) 25 - 50 ml IV UD PRN; Protocol PRN Reason: Hypoglycemia Protocol Stop: 02/29/20 23:44 Glucagon (Glucagon For Inj 1 Mg Vial) 1 mg SQ UD PRN; Protocol PRN Reason: Hypoglycemia Protocol Stop: 02/29/20 23:44 Glucose (Glucose 40% Gel 15 Gm Tube) 15 - 30 gm PO UD PRN; Protocol PRN Reason: Hypoglycemia Protocol Stop: 02/29/20 23:44 Glucose (Glucose 10 Tabs/Tube) 4 - 8 tabs PO UD PRN; Protocol PRN Reason: Hypoglycemia Protocol Stop: 02/29/20 23:44 Piperacillin Sod/Tazobactam (Sod 4.5 gm/ Dextrose) 120 mls @ 30 mls/hr IV Q12H [facility]; Protocol Stop: 02/09/20 03:59 Last Infusion: 02/06/20 09:07 Dose: Infused Documented by: Alteplase, Recombinant 10 mg/ (Syringe) 60 mls @ 0.0006 mls/min IPL Q12H [facility]; Protocol Stop: 02/08/20 21:59 Last Admin: 02/06/20 10:11 Dose: 0.0006 mls/min Documented by: Dornase Cy 5 ml/ Syringe 30 mls @ 0.0006 mls/min IPL Q12H [facility]; Protocol Stop: 02/08/20 21:59 Last Admin: 02/05/20 22:37 Dose: 0.0006 mls/min Documented by: Insulin Aspart (Insulin Aspart 100 Units/Ml 3 Ml Pen) 0 units SC ACHS [facility] Stop: 03/01/20 07:29 Last Admin: 02/06/20 10:59 Dose: Not Given Documented by: Isosorbide Mononitrate (Isosorbide [place] Extended Rel 30 Mg Tabcr) 30 mg PO DAILY [facility] Stop: 03/01/20 08:59 Last Admin: 02/06/20 07:52 Dose: 30 mg Documented by: Lactobacillus Acidoph/Casei/Rhamnos (Advanced Probiotic 1250 Mg Capsule) 2 cap PO DAILY [facility] Stop: 03/04/20 11:59 Last Admin: 02/06/20 07:53 Dose: 2 cap Documented by: Levothyroxine Sodium (Levothyroxine Sodium 125 Mcg Tablet) 125 mcg PO DAILYBB [facility] Stop: 03/01/20 06:29 Last Admin: 02/06/20 06:24 Dose: 125 mcg Documented by: Lidocaine (Lidocaine 5% 1 Patch) 1 patch TD QAM [facility] Stop: 03/07/20 06:34 Last Admin: 02/06/20 07:50 Dose: 1 patch Documented by: Miscellaneous (Carbohydrates For Hypoglycemia ) 15 - 30 gm PO UD PRN PRN Reason: Hypoglycemia Treatment Stop: 02/29/20 23:44 Miscellaneous (Remove Lidoderm Patch) 1 ea N/A DAILY@2100 [facility] Stop: 03/07/20 18:59 Miscellaneous Information (Piperacill/Tazobac Consult Active) 1 ea N/A UD PRN PRN Reason: Consult Stop: 02/29/20 18:39 Miscellaneous Information (Vancomycin Consult Active) 1 ea N/A UD PRN PRN Reason: Consult Stop: 02/29/20 22:52 Nitroglycerin (Nitroglycerin Sl 0.4 Mg/Tab Tab) 0.4 mg SL UD PRN PRN Reason: Chest Pain Stop: 02/29/20 22:52 Pregabalin (Pregabalin 100 Mg Cap) 100 mg PO BID [facility] Stop: 03/01/20 08:59 Last Admin: 02/06/20 07:58 Dose: 100 mg Documented by: Terazosin HCl (Terazosin Hcl 5 Mg Cap) 5 mg PO HS [facility] Stop: 03/01/20 20:59 Last Admin: 02/05/20 19:44 Dose: 5 mg Documented by: Tramadol HCl (Tramadol Hcl 50 Mg Tablet) 25 - 50 mg PO Q4H PRN PRN Reason: Pain Stop: 03/07/20 06:37 Venlafaxine HCl (Venlafaxine Hcl Xr 75 Mg Capxr) 75 mg PO QAM [facility] Stop: 03/01/20 08:59 Last Admin: 02/06/20 07:55 Dose: 75 mg Documented by: Vitamin D (Cholecalciferol 1,000 Units 25 Mcg Tab) 5,000 units PO DAILY [facility] Stop: 03/01/20 08:59 Last Admin: 02/06/20 07:55 Dose: 5,000 units Documented by:
[2020-02-06] MEDS: DORNASE ALFA 5 ML in SYRINGE 25 ML IPL SCH ×2 (12:45→22:02)
--- NOTE | 2020-02-06 12:59 | Pulmonology Progress Note ---
Date of Service February 06, 2020 Assessment & Plan (1) Pneumonia: CT chest 01/30/2020 personally reviewed: Loculated large right-sided pleural effusion is appreciated with right lower lobe atelectasis partial. Insignificant mediastinal lymphadenopathy air trapping appreciated. This pleural effusion was not appreciated on chest x-ray done 01/06/2020. --Right sided loculated pleural effusion In the patient with leukocytosis on presentation and end-stage renal disease Likelihood of parapneumonic effusion is high in the differential Blood culture and sputum culture 01/30/2020 --> Negative to date S/p thoracentesis 02/03/2020, 500 mL cloudy yellow fluid removed. --> Exudative as per lights criteria. Parapneumonic if you look at the pH and the glucose S/p pigtail catheter placement 02/05/2020 --> MIST protocol started with TPA and DNase. Will give total of 6 doses. Pleural fluid: LDH 2062, protein 4.7, glucose 52, pH 7.16 Serum: LDH 220, protein 6.7 --RENÉ Compliant with CPAP Plan: Yesterday post chest tube placement that was loculated right lower pneumo likely Pneumo ex-vacuo, and trapped lung. Hopefully the lung will expand. There is approximately 850 mL output from the chest tube. It is with redness change compared to before. Patient hemoglobin is stable. Keep an eye on the drainage output. If it gets really bloody we need to stop the TPA. Repeat chest x-ray in the morning. Please note the above document was generated using voice recognition software. It may contain grammatical, syntax or spelling errors.Any formal questions or concerns about the content, text or information contained within the body of this dictation should be directly addressed to the provider for clarification. Aspiration pneumonia type: unspecified Laterality: right Lung location: unspecified part of lung Pneumonia type: aspiration pneumonia Qualified Code(s): J69.0 - Pneumonitis due to inhalation of food and vomit (2) Pleural effusion: (3) RENÉ (obstructive sleep apnea): (4) Morbid obesity: Admission and Anticipated Discharge Date Admission Date: January 30, 2020 Subjective Patient seen and examined at bedside. No acute distress, no adverse events overnight. Patient complains of mild right-sided chest pain. Denies any dizziness, no shortness of breath. No headache, no nausea or vomiting. Good appetite. Review of Systems Review of Systems: All systems reviewed & are unremarkable except as noted in Subjective Physical Exam Physical Exam: Constitutional: No acute distress HEENT: EOMI, PERRLA, hard to hear Respiratory system: Decreased air entry bilaterally, positive crackles bilateral lower lobes more on the right side, no wheeze, no rhonchi CVS: S1-S2 positive, no murmurs or gallops, left-sided permacath Abdomen: Soft, nontender, nondistended, positive bowel sounds x4, obese Extremities: +2 pulses bilaterally radialis/ dorsalis pedis, no cyanosis, no edema Neuro: Awake alert oriented x3 Psych: Normal mood and affect Right-sided pigtail catheter in place. Skin: no rashes, warm and dry Lymphatic: no cervical or axillary lymphadenopathy Results & Data Results & Data ([facility]) Vital Signs (Past 12 Hours) Vital Signs Temp Pulse Pulse Resp BP Pulse Ox 02/06/20 11:57 36.8 C 74 20 125/59 L 96 02/06/20 10:57 53 L 16 97 02/06/20 08:00 37.0 C 89 18 134/64 98 02/06/20 07:21 50 L 18 93 02/06/20 04:11 36.7 C 80 18 144/89 H 95 02/06/20 03:29 68 18 96 02/06/20 05:53 02/06/20 05:53 PG Care Time/CCT Total # of Minutes Spent Total Time Spent with Patient: Total time spent is greater than 50% in coor dination of care (as documented) at patient's floor/unit and/or counseling patient: Coding Level of Care Code 37887 Subseq Hosp Care Lvl 3 Diagnoses Pneumonia J69.0 Aspiration pneumonia type: unspecified Laterality: right Lung location: unspecified part of lung Pneumonia type: aspiration pneumonia Pleural effusion J90 RENÉ (obstructive sleep apnea) G47.33 Morbid obesity E66.01
[2020-02-06] MEDS: traMADol HCL 50 MG TABLET PO PRN ×2 (13:47→20:27)
[2020-02-06] MEDS: TERAZOSIN HCL 5 MG CAP PO SCH (20:27)
[2020-02-07] MEDS: ALBUT/IPRATROP 3MG/0.5MG NEB 3 ML VIAL NEB SCH ×2 (03:29→07:01)
[2020-02-07] MEDS: PIPERACILLIN/TAZOBACTAM 4.5 GM in DEXTROSE 5% 100 ML IV SCH (03:45)
[2020-02-07] MEDS: LEVOTHYROXINE SODIUM 125 MCG TABLET PO SCH (05:57)
[2020-02-07 06:52] LABS: Hematocrit (blood only) 29.5 % (37-47); Hemoglobin 9.2 g/dL (12.0-16.0); Mean Corpuscular Hemoglobin 30.1 pg (25-34); Mean Corpuscular Hgb Conc 31.2 g/dL (32-36); Mean Corpuscular Volume 96.4 fL (80-100); Mean Platelet Volume 10.1 fL (7.4-10.4); Platelet Count 323 K/uL (130-400); RDW Coefficient of Variation 19.9 % (11.5-14.5); RDW Standard Deviation 69.4 fL (36.4-46.3); Red Blood Count 3.06 M/uL (4.2-5.4); White Blood Count 12.12 K/uL (4.8-10.8)
--- NOTE | 2020-02-07 07:13 | XRay Report ---
XR chest 1V portable HISTORY: 74 years-old Female f/u follow-up study in a patient with right lung base opacities COMPARISON: Chest radiograph 02/04/2020 TECHNIQUE: Portable AP view of the chest FINDINGS: Cardiac silhouette is enlarged, unchanged. Calcified plaque of the thoracic aorta. Left IJ dual-lumen hemodialysis catheter distal tip terminates within the inferior aspect of the right atrium. Trace pl eural effusions with persistent right greater than left bibasilar opacities. No pneumothorax. Hazines s throughout the right lung may be secondary to layering pleural effusion. Degenerative changes of th e shoulders and spine. Unchanged positioning of the right lung base chest tube IMPRESSION: 1. Unchanged positioning of the right lung base chest tube. 2. Small bilateral pleural effusions. 3. Unchanged mild right lung base opacities. 4. No pneumothorax. ACT 112: Negative or not required by law. The above report was generated using voice recognition software. It may contain grammatical, syntax o r spelling errors. Electronically signed by: Arnoldo Stiles M.D. 02/07/2020 7:12 AM
[2020-02-07 07:46] LABS: BUN Creatinine Ratio 5.8 (10-20); Creatinine Clr Calc Pharmacy 10.4 ml/min; Est GFR (African American) 9.1; Est GFR (Non-African American) 7.8; Potassium 4.1 mmol/L (3.5-5.1)
--- NOTE | 2020-02-07 08:01 | Hospitalist Progress Note ---
Date of Service February 07, 2020 Assessment & Plan (1) ESRD (end stage renal disease) on dialysis: ASSESSMENT AND PLAN: This is a 74 y/o female with past medical history significant for end-stage renal disease, Parkinson disease, hypertension, hyperlipidemia, history of non- ST elevated myocardial infarction, history of cerebrovascular accident, history of chronic heart failure with preserved EF, presents with lethargy. Metabolic encephalopathy d/t poss. aspiration pna 1. Lethargy. The patient had dialysis 1 day [employer], generally is worn out after dialysis, generally wakes up at 7:30 in the morning, she did not wake up until 1:00pm and she was just confused and staring. Even on CPAP, her sats were low, in 70s and 80s at home. Her WBC elevated to 29,000 in the ER. Chest x-ray, questionable pulmonary edema versus diffuse haziness in the right hemithorax. CT of the head is unremarkable. The patient has history of lethargy in the past. In November, she was admitted with altered mental status, thought to be from sepsis and aspiration and also medications. At that time, meclizine, oxybutynin, and Mirapex had been discontinued. Empirically started on Vancomycin and Zosyn. Follow the cultures. ABG obtained. Her mental status is much improved. CT of the chest as x-ray shows some right-sided haziness. CT chest : Moderate right pleural effusion. Consolidation within the right upper and lower lobes posteriorly. This favors atelectasis from the pleural effusion. A pneumonia could also have a similar appearance. There is moderate narrowing of the bronchus intermedius with mass effect posteriorly. This could be due to the pleural effusion on underlying lesion. Follow-up bronchoscopy or chest CT recommended once the effusion has resolved. Will follow the cultures and closely monitor in the tele floor. Dialysis catheter site seems okay. Hypoxia at home on CPAP, currently saturating well on 2 liters. WBC 29K, now normalized Pulmonary medicine consulted given R sided loculated pl. effusion, recurrent PNA, poss. empyema, discussed w/ Dr. Dial Pt underwent R sided thoracentesis on 02/02, 500 cc of yellow cloudy fluid removed, fluid c/w parapneumonic effusion, pH 6.17, glc 52, sent for cultx , (exudative per Light's criteria) Recommend to cont. Abx, consider CT VATS Pl. fluid cultx (02/03/20) - no growth, gram stain - no organisms seen, moderate polys Blood cultx (01/30/20) - no growth in 5 days Reviewed R pl. effusion (02/04) and re-assessed for poss. chest tube placement, now s/p chest tube placement (02/05/20), drains serosang. fluid 02/06 - recommend to switch to Augmentin from zosyn, and stop vancomycin, pt will need 2 weeks of Abx treatment Urine cltx - mixed rebecca - repeated -> luis eduardo, nonsignificant Loose stools - obtained stool cultx, C. diff negative, resolved Nausea, emesis - now resolved Speech eval - no aspiration 02/01 2. History of sleep apnea. Continue CPAP at bedtime. 3. History of MRSA in the sputum in the past.Abx as above. Will follow cx 4. History of cerebrovascular accident, on Lipitor and aspirin, continue same. 5. History of chronic diastolic congestive heart failure, currently on dialysis. 6. End-stage renal disease, on hemodialysis. HD on 01/31, pt hypotensive w/ nausea and emesis. Not able to remove fluid d/t hypotension. No further episodes of nausea during HD. Nephrology following. 8. History of pneumothorax on the right side. No pneumothorax now. 9. Diabetes. Not on medication at home. Current HbA1c 5.0% insulin sliding scale while inpt 10. Prolonged qt. to avoid qt prolonging drugs. Follow ekg in am, cardiology reviewed 11. HTN On isosorbide mononitrate, terazosin. Holding amlodipine. Monitor BP as its somewhat on lower side. Now BP improved. 12. Hx of cva on aspirin and statin. 13. Parkinson disease. On Sinemet. 14. Hypothyroidism. Synthroid. 15. Hx of NSTEMI. On aspirin, statin and nitrate DVT prophylaxis. SCDs. heparin for now Disposition, continue tele, PT/OT prior to discharge. Social service to help with discharge planning. Likely [facility] Admission and Anticipated Discharge Date Admission Date: January 30, 2020 Subjective Pt seen and examined during HD. She is laying in bed in NAD. R chest tube placed w/bloody drainage noted. Pt reports some discomfort at right chest no other concerns. No fever, chills, shortness of breath, abd. pain, nausea or vomiting. Reports good appetite. Review of Systems Review of Systems: All systems reviewed & are unremarkable except as noted in HPI & below Constitutional: no fever and no chills Respiratory: + cough (occasional) and + dyspnea (mild) Cardiovascular: + chest pain (R chest pain/ d/t chest tube placement); no palpitations Gastrointestinal: no abdominal pain, no nausea and no vomiting Physical Exam Physical Exam: Gen- elderly female laying in bed, AAO x 3, NAD, Hard of Hearing on NC 2-3L Head- NCAT, EOMI,Anicteric Sclera, No Posterior Pharyngeal Erythema Neck-Supple, No JVD Lungs- decreased breath sounds, + bibasilar crackles, R>L, no wheezing Chest- regular, no murmurs, R chest tube placed bloody drainage noted Abdomen- Soft, Bowel Sounds Present, Non Tender, Non Distended, No Rigidity, No Guarding : Kirby catheter placed, drains yellow urine Extremities-No Cyanosis, No Clubbing, No Edema, moves extremities spontaneously Neuro- alert and oriented and answering questions appropriately, very hard of hearing, speech fluent, no facial asymmetry, moves extremities but appears g enerally weak Psych- Normal Mood Results & Data Results & Data ([facility]) Vital Signs (Past 12 Hours) Vital Signs Temp Pulse Pulse Resp BP Pulse Ox 02/07/20 07:35 37.2 C 70 20 115/66 94 02/07/20 07:01 79 21 95 02/07/20 03:48 36.7 C 74 18 104/72 94 02/07/20 03:29 68 16 94 02/07/20 00:40 76 02/07/20 00:20 36.6 C 73 18 109/79 98 02/06/20 22:56 69 16 92 02/06/20 22:55 16 92 Laboratory Results 02/07/20 02/07/20 02/07/20 Range/Units 07:48 06:21 06:21 WBC 12.12 H (4.8-10.8) K/uL RBC 3.06 L (4.2-5.4) M/uL Hgb 9.2 L (12.0-16.0) g/dL Hct 29.5 L (37-47) % MCV 96.4 (80-100) fL MCH 30.1 (25-34) pg MCHC 31.2 L (32-36) g/dL RDW Std Deviation 69.4 H (36.4-46.3) fL RDW Coeff of Bhavin 19.9 H (11.5-14.5) % Plt Count 323 (130-400) K/uL MPV 10.1 (7.4-10.4) fL Sodium 137 (136-145) mmol/L Potassium 4.1 (3.5-5.1) mmol/L Chloride 105 (98-107) mmol/L Carbon Dioxide 25 (21-32) mmol/L Anion Gap 8.0 (3-11) BUN 29 H (7-18) mg/dl Creatinine 5.08 H* D (0.6-1.2) mg/dl Est Cr Clr Drug Dosing 10.4 ml/min Est GFR ( Amer) 9.1 Est GFR (Non-Af Amer) 7.8 BUN/Creatinine Ratio 5.8 L (10-20) Glucose 89 (70-99) mg/dl POC Glucose 95 (70-99) mg/dl Calcium 8.0 L (8.5-10.1) mg/dl 02/06/20 02/06/20 02/06/20 Range/Units 20:46 16:40 11:12 WBC (4.8-10.8) K/uL RBC (4.2-5.4) M/uL Hgb (12.0-16.0) g/dL Hct (37-47) % MCV (80-100) fL MCH (25-34) pg MCHC (32-36) g/dL RDW Std Deviation (36.4-46.3) fL RDW Coeff of Bhavin (11.5-14.5) % Plt Count (130-400) K/uL MPV (7.4-10.4) fL Sodium (136-145) mmol/L Potassium (3.5-5.1) mmol/L Chloride (98-107) mmol/L Carbon Dioxide (21-32) mmol/L Anion Gap (3-11) BUN (7-18) mg/dl Creatinine (0.6-1.2) mg/dl Est Cr Clr Drug Dosing ml/min Est GFR ( Amer) Est GFR (Non-Af Amer) BUN/Creatinine Ratio (10-20) Glucose (70-99) mg/dl POC Glucose 142 H 115 H 99 (70-99) mg/dl Calcium (8.5-10.1) mg/dl Medications Administered Current Inpatient Medications Acetaminophen (Acetaminophen 325 Mg Tab) 650 mg PO Q4H PRN PRN Reason: Pain or Fever Stop: 02/29/20 22:52 Last Admin: 02/06/20 04:31 Dose: 650 mg Documented by: Albuterol (Albut/Ipratrop 3mg/0.5mg Neb 3 Ml Vial) 3 ml NEB Q4R [facility] Stop: 03/04/20 10:59 Last Admin: 02/07/20 07:01 Dose: 3 ml Documented by: Aspirin (Aspirin 81 Mg Ectab) 162 mg PO DAILY [facility] Stop: 03/01/20 08:59 Last Admin: 02/06/20 07:55 Dose: 162 mg Documented by: Atorvastatin Calcium (Atorvastatin 40 Mg Tab) 80 mg PO QAM [facility] Stop: 03/01/20 08:59 Last Admin: 02/06/20 07:53 Dose: 80 mg Documented by: Calcium Acetate (Calcium Acetate 667 Mg Cap/Tab) 667 mg PO TIDM PRN PRN Reason: .SNACKS Stop: 03/01/20 07:59 Last Admin: 02/01/20 08:13 Dose: 667 mg Documented by: Carbidopa/Levodopa (Carbidopa/Levodopa 25/100mg Tab) 1 tab PO TIDM [facility] Stop: 03/01/20 07:59 Last Admin: 02/06/20 16:20 Dose: 1 tab Documented by: Cyanocobalamin (Cyanocobalamin 500 Mcg Tablet (Vitamin B-12)) 1,000 mcg PO QAM [facility] Stop: 03/01/20 08:59 Last Admin: 02/06/20 07:53 Dose: 1,000 mcg Documented by: Dextrose (Dextrose 50% 50 Ml Syringe) 25 - 50 ml IV UD PRN; Protocol PRN Reason: Hypoglycemia Protocol Stop: 02/29/20 23:44 Glucagon (Glucagon For Inj 1 Mg Vial) 1 mg SQ UD PRN; Protocol PRN Reason: Hypoglycemia Protocol Stop: 02/29/20 23:44 Glucose (Glucose 40% Gel 15 Gm Tube) 15 - 30 gm PO UD PRN; Protocol PRN Reason: Hypoglycemia Protocol Stop: 02/29/20 23:44 Glucose (Glucose 10 Tabs/Tube) 4 - 8 tabs PO UD PRN; Protocol PRN Reason: Hypoglycemia Protocol Stop: 02/29/20 23:44 Piperacillin Sod/Tazobactam (Sod 4.5 gm/ Dextrose) 120 mls @ 30 mls/hr IV Q12H [facility]; Protocol Stop: 02/09/20 03:59 Last Admin: 02/07/20 03:45 Dose: 28.8 mls/hr Documented by: Alteplase, Recombinant 10 mg/ (Syringe) 60 mls @ 0.0006 mls/min IPL Q12H [facility]; Protocol Stop: 02/08/20 21:59 Last Admin: 02/06/20 22:02 Dose: 0.0006 mls/min Documented by: Dornase Cy 5 ml/ Syringe 30 mls @ 0.0006 mls/min IPL Q12H [facility]; Protocol Stop: 02/08/20 21:59 Last Admin: 02/06/20 22:02 Dose: 0.0006 mls/min Documented by: Insulin Aspart (Insulin Aspart 100 Units/Ml 3 Ml Pen) 0 units SC ACHS [facility] Stop: 03/01/20 07:29 Last Admin: 02/06/20 20:48 Dose: Not Given Documented by: Isosorbide Mononitrate (Isosorbide [place] Extended Rel 30 Mg Tabcr) 30 mg PO DAILY [facility] Stop: 03/01/20 08:59 Last Admin: 02/06/20 07:52 Dose: 30 mg Documented by: Lactobacillus Acidoph/Casei/Rhamnos (Advanced Probiotic 1250 Mg Capsule) 2 cap PO DAILY [facility] Stop: 03/04/20 11:59 Last Admin: 02/06/20 07:53 Dose: 2 cap Documented by: Levothyroxine Sodium (Levothyroxine Sodium 125 Mcg Tablet) 125 mcg PO DAILYBB [facility] Stop: 03/01/20 06:29 Last Admin: 02/07/20 05:57 Dose: 125 mcg Documented by: Lidocaine (Lidocaine 5% 1 Patch) 1 patch TD QAM [facility] Stop: 03/07/20 06:34 Last Admin: 02/06/20 07:50 Dose: 1 patch Documented by: Lidocaine (Lidocaine 5% 1 Patch) 1 patch TD QAM [facility] Stop: 03/07/20 15:14 Last Admin: 02/06/20 15:56 Dose: 1 patch Documented by: Miscellaneous (Carbohydrates For Hypoglycemia ) 15 - 30 gm PO UD PRN PRN Reason: Hypoglycemia Treatment Stop: 02/29/20 23:44 Miscellaneous (Remove Lidoderm Patch) 1 ea N/A DAILY@2100 [facility] Stop: 03/07/20 18:59 Last Admin: 02/06/20 20:28 Dose: 1 ea Documented by: Miscellaneous (Remove Lidoderm Patch) 1 ea N/A DAILY@2100 [facility] Stop: 03/07/20 20:59 Last Admin: 02/06/20 20:28 Dose: 1 ea Documented by: Miscellaneous Information (Piperacill/Tazobac Consult Active) 1 ea N/A UD PRN PRN Reason: Consult Stop: 02/29/20 18:39 Miscellaneous Information (Vancomycin Consult Active) 1 ea N/A UD PRN PRN Reason: Consult Stop: 02/29/20 22:52 Nitroglycerin (Nitroglycerin Sl 0.4 Mg/Tab Tab) 0.4 mg SL UD PRN PRN Reason: Chest Pain Stop: 02/29/20 22:52 Pregabalin (Pregabalin 100 Mg Cap) 100 mg PO BID [facility] Stop: 03/01/20 08:59 Last Admin: 02/06/20 20:27 Dose: 100 mg Documented by: Terazosin HCl (Terazosin Hcl 5 Mg Cap) 5 mg PO HS [facility] Stop: 03/01/20 20:59 Last Admin: 02/06/20 20:27 Dose: 5 mg Documented by: Tramadol HCl (Tramadol Hcl 50 Mg Tablet) 25 - 50 mg PO Q4H PRN PRN Reason: Pain Stop: 03/07/20 06:37 Last Admin: 02/06/20 20:27 Dose: 25 mg Documented by: Venlafaxine HCl (Venlafaxine Hcl Xr 75 Mg Capxr) 75 mg PO QAM [facility] Stop: 03/01/20 08:59 Last Admin: 02/06/20 07:55 Dose: 75 mg Documented by: Vitamin D (Cholecalciferol 1,000 Units 25 Mcg Tab) 5,000 units PO DAILY [facility] Stop: 03/01/20 08:59 Last Admin: 02/06/20 07:55 Dose: 5,000 units Documented by:
[2020-02-07] MEDS ORDERED: ALBUT/IPRATROP 3MG/0.5MG NEB 3 ML VIAL NEB PRN (08:54)
[2020-02-07] MEDS: CARBIDOPA/LEVODOPA 25/100MG TAB PO SCH ×3 (08:57→17:22)
[2020-02-07] MEDS: CYANOCOBALAMIN 500 MCG TABLET (VITAMIN B-12) PO SCH (08:57)
[2020-02-07] MEDS: PREGABALIN 100 MG CAP PO SCH (08:57)
[2020-02-07] MEDS: ISOSORBIDE MONO EXTENDED REL 30 MG TABCR PO SCH (08:57)
[2020-02-07] MEDS: ADVANCED PROBIOTIC 1250 MG CAPSULE PO SCH (08:57)
[2020-02-07] MEDS: VENLAFAXINE HCL XR 75 MG CAPXR PO SCH (08:58)
[2020-02-07] MEDS: CHOLECALCIFEROL 1,000 UNITS 25 MCG TAB PO SCH (08:58)
[2020-02-07] MEDS: ASPIRIN 81 MG ECTAB PO SCH (08:58)
[2020-02-07] MEDS: ATORVASTATIN 40 MG TAB PO SCH (08:59)
[2020-02-07] MEDS: LIDOCAINE 5% 1 PATCH TD SCH ×2 (08:59)
[2020-02-07] MEDS: INSULIN ASPART 100 UNITS/ML 3 ML PEN SC SCH ×4 (09:12→22:36)
--- NOTE | 2020-02-07 11:01 | Pulmonology Progress Note ---
Date of Service February 07, 2020 Assessment & Plan (1) Pleural effusion: Impression: 74-year-old female with end-stage renal disease on dialysis admitted with likely parapneumonic effusion. Cultures are negative. She is status post pigtail drainage and currently undergoing mist protocol with good radiographic and clinical response. Recommendations: 1. Parapneumonic effusion: Cultures are no growth to date. X-ray shows improvement. Would continue mist protocol and repeat chest x-ray in morning. Would consider discontinuation of chest tube once drainage is less than 150 to 200 mL per 24 hours. And based on clinical response. 2. Pneumonia: day #7 Zosyn with cultures negative. Cultures may be negative as they were obtained after the patient had already been on antimicrobial therapy. Okay to transition to oral Augmentin with plans to complete at least 2 weeks of therapy. Okay to discontinue vancomycin 3. Management the patient's other medical issues per hospitalist service. (2) Pneumonia: Aspiration pneumonia type: unspecified Laterality: right Lung location: unspecified part of lung Pneumonia type: aspiration pneumonia Qualified Code(s): J69.0 - Pneumonitis due to inhalation of food and vomit Admission and Anticipated Discharge Date Admission Date: January 30, 2020 Subjective Patient seen and examined. EMR reviewed. The patient states that she is breathing well. She does have some slight chest discomfort in her back when she rolls over but otherwise is feeling well. No fevers chills or night sweats. Review of Systems Review of Systems: All systems reviewed & are unremarkable except as noted in HPI & below Physical Exam Constitutional: WD/WN, vitals as above Neck: trachea midline, no thyromegaly Respiratory: normal respiratory effort, lungs clear to auscultation Cardiovascular: RRR, no murmur, no edema Chest (Breasts): Additional Comments: No air leak. Minimal output on the current drain. Gastrointestinal (Abdomen): normal bowel sounds, soft, nontender, no hepatosplenomegaly Musculoskeletal: Extremities: extremities normal to inspection Skin: no rashes, warm and dry Neurologic: Nonfocal exam Lymphatic: no cervical lymphadenopathy Results & Data Results & Data ([facility]) Vital Signs (Past 12 Hours) Vital Signs Temp Pulse Pulse Resp BP Pulse Ox 02/07/20 08:00 75 02/07/20 07:35 37.2 C 70 20 115/66 94 02/07/20 07:01 79 21 95 02/07/20 03:48 36.7 C 74 18 104/72 94 02/07/20 03:29 68 16 94 02/07/20 00:40 76 02/07/20 00:20 36.6 C 73 18 109/79 98 Chest tube put out about 1400 cc in the last 24 hours Laboratory Results 02/07/20 06:21 02/07/20 06:21 Culture data shows no growth to date Diagnostic Findings Chest x-ray was independently reviewed. The pigtail catheter appears to be in good position. There is trivial pleural fluid identified. There is thickening of the minor fissure likely consistent with fluid in the fissure. No pneumothorax PG Care Time/CCT Total # of Minutes Spent Total Time Spent with Patient: Total time spent is greater than 50% in coordination of care (as documented) at patient's floor/unit and/or counseling patient: Coding Level of Care Code 89258 Subseq Hosp Care Lvl 3 Diagnoses Pleural effusion J90 Pneumonia J69.0 Aspiration pneumonia type: unspecified Laterality: right Lung location: unspecified part of lung Pneumonia type: aspiration pneumonia
[2020-02-07] MEDS: ALTEPLASE, RECOMBINANT 10 MG in SYRINGE 50 ML IPL SCH ×2 (11:04→22:37)
[2020-02-07] MEDS: DORNASE ALFA 5 ML in SYRINGE 25 ML IPL SCH ×2 (12:09→22:37)
[2020-02-07] MEDS ORDERED: SODIUM CHLORIDE 0.9% 1000ML 1,000 ML IV PRN (13:11)
[2020-02-07] MEDS: ACETAMINOPHEN 325 MG TAB PO PRN (14:57)
[2020-02-07] MEDS: AMOXICILLIN/CLAVULANATE 500 MG TAB PO SCH (17:22)
--- NOTE | 2020-02-07 21:50 | Nephrology Progress Note ---
Date of Service February 07, 2020 Assessment & Plan (1) ESRD (end stage renal disease) on dialysis: on TRSat HD >> for tx today to keep on schedule with outpt holiday week timetables borderline bp today and may need to back off of UF ordered at 1.5L -next HD tentatively for 02/08 or as clinical needs dictate -no heparin w/ tx Present on Admission?: Yes Admission and Anticipated Discharge Date Admission Date: January 30, 2020 Subjective seen on rounds at 1435; c/o R shoulder pleuritic pain Review of Systems Review of Systems: All systems reviewed & are unremarkable except as noted in HPI & below Physical Exam Constitutional: well developed and well nourished; no acute distress Eyes: EOM intact bilaterally ENMT: Ears: no external ear abnormality Nose: no external nose abnormality Mouth: + dry oral mucous membranes Neck: no nuchal rigidity Respiratory: normal respiratory effort Auscultation: + diminished lung sounds R chest tube w/ serosang output Cardiovascular: Rate/Rhythm: regular rate and regular rhythm Extremities: no edema Gastrointestinal (Abdomen): Inspection/Auscultation: normal bowel sounds Percussion/Palpation: abdomen soft; abdomen nontender Musculoskeletal: Extremities: strength 5/5 throughout Skin: no rashes, warm and dry Neurologic: caballero, fluent but slightly delayed speech, no tremor Psychiatric: Orientation: alert and oriented x 3 Results & Data ([facility]) Vital Signs (Past 12 Hours) Vital Signs Temp Pulse Pulse Pulse Resp BP BP 02/07/20 20:26 77 69/53 L 02/07/20 20:20 77 69/53 L 02/07/20 20:06 77 97/42 L 02/07/20 20:00 62 79/57 L 02/07/20 19:40 79 83/46 L 02/07/20 19:20 79 105/47 L 02/07/20 19:00 59 L 77/50 L 02/07/20 18:40 86 104/69 02/07/20 18:20 51 L 88/54 L 02/07/20 18:00 67 106/59 L 02/07/20 16:00 69 02/07/20 15:47 36.8 C 62 17 95/56 L 02/07/20 11:35 36.8 C 62 20 101/62 Pulse Ox 02/07/20 20:26 02/07/20 20:20 02/07/20 20:06 02/07/20 20:00 02/07/20 19:40 02/07/20 19:20 02/07/20 19:00 02/07/20 18:40 02/07/20 18:20 02/07/20 18:00 02/07/20 16:00 02/07/20 15:47 94 02/07/20 11:35 93 Laboratory Results 02/07/20 06:21 02/07/20 06:21
[2020-02-07] MEDS: TERAZOSIN HCL 5 MG CAP PO SCH (22:36)
[2020-02-08] MEDS: traMADol HCL 50 MG TABLET PO PRN ×3 (01:09→15:20)
[2020-02-08] MEDS: LEVOTHYROXINE SODIUM 125 MCG TABLET PO SCH (06:05)
[2020-02-08 07:06] LABS: Hematocrit (blood only) 29.6 % (37-47); Hemoglobin 9.1 g/dL (12.0-16.0); Mean Corpuscular Hemoglobin 29.8 pg (25-34); Mean Corpuscular Hgb Conc 30.7 g/dL (32-36); Platelet Count 378 K/uL (130-400); RDW Coefficient of Variation 19.7 % (11.5-14.5); RDW Standard Deviation 70.2 fL (36.4-46.3); Red Blood Count 3.05 M/uL (4.2-5.4); White Blood Count 12.96 K/uL (4.8-10.8)
[2020-02-08 07:07] LABS: Mean Platelet Volume 10.3 fL (7.4-10.4)
[2020-02-08 07:45] LABS: BUN Creatinine Ratio 5.2 (10-20); Calcium 7.7 mg/dl (8.5-10.1); Creatinine Clr Calc Pharmacy 14.9 ml/min; Est GFR (African American) 13.8; Est GFR (Non-African American) 11.9; Potassium 3.7 mmol/L (3.5-5.1)
--- NOTE | 2020-02-08 08:08 | XRay Report ---
XR chest 1V portable CLINICAL HISTORY: Respiratory difficulty COMPARISON STUDY: 02/07/2020 FINDINGS: The heart remains enlarged. There is a left subclavian dual-chamber central venous catheter . The tip projects over the right atrium. There is a right-sided pigtail pleural catheter present.[No pneumothorax is visualized. There is stable blunting of the right lateral costophrenic angle. Inters titial right lung opacities remain similar to the preceding study. There are equivocal airspace opaci ties the left lung base with slight obscuration of the left lateral hemidiaphragm IMPRESSION: 1. No change in the position of the right-sided pigtail pleural catheter 2. Stable right lung airspace opacities 3. No pneumothorax 4. Equivocal subtle left basilar airspace opacities ACT 112: Negative or not required by law. Electronically signed by: Maximilian Jay M.D. 02/08/2020 8:06 AM
[2020-02-08] MEDS: CARBIDOPA/LEVODOPA 25/100MG TAB PO SCH ×3 (08:35→17:50)
[2020-02-08] MEDS: ATORVASTATIN 40 MG TAB PO SCH (08:36)
[2020-02-08] MEDS: ASPIRIN 81 MG ECTAB PO SCH (08:36)
[2020-02-08] MEDS: ISOSORBIDE MONO EXTENDED REL 30 MG TABCR PO SCH (08:36)
[2020-02-08] MEDS: VENLAFAXINE HCL XR 75 MG CAPXR PO SCH (08:37)
[2020-02-08] MEDS: ADVANCED PROBIOTIC 1250 MG CAPSULE PO SCH (08:37)
[2020-02-08] MEDS: CHOLECALCIFEROL 1,000 UNITS 25 MCG TAB PO SCH (08:37)
[2020-02-08] MEDS: LIDOCAINE 5% 1 PATCH TD SCH ×2 (08:38)
[2020-02-08] MEDS: CYANOCOBALAMIN 500 MCG TABLET (VITAMIN B-12) PO SCH (08:38)
[2020-02-08] MEDS: INSULIN ASPART 100 UNITS/ML 3 ML PEN SC SCH ×4 (09:45→21:07)
--- NOTE | 2020-02-08 09:50 | Hospitalist Progress Note ---
Date of Service February 08, 2020 Assessment & Plan (1) ESRD (end stage renal disease) on dialysis: ASSESSMENT AND PLAN: This is a 74 y/o female with past medical history significant for end-stage renal disease, Parkinson disease, hypertension, hyperlipidemia, history of non- ST elevated myocardial infarction, history of cerebrovascular accident, history of chronic heart failure with preserved EF, presents with lethargy. Metabolic encephalopathy d/t poss. aspiration pna 1. Lethargy. 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 Even on CPAP, her sats were low, in 70s and 80s at home. Her WBC elevated to 29,000 in the ER. Chest x-ray, questionable pulmonary edema versus diffuse haziness in the right hemithorax. CT of the head is unremarkable. The patient has history of lethargy in the past. In November, she was admitted with altered mental status, thought to be from sepsis and aspiration and also medications. At that time, meclizine, oxybutynin, and Mirapex had been discontinued. Empirically started on Vancomycin and Zosyn. Follow the cultures. ABG obtained. Her mental status is much improved. CT of the chest as x-ray shows some right-sided haziness. CT chest : Moderate right pleural effusion. Consolidation within the right upper and lower lobes posteriorly. This favors atelectasis from the pleural effusion. A pneumonia could also have a similar appearance. There is moderate narrowing of the bronchus intermedius with mass effect posteriorly. This could be due to the pleural effusion on underlying lesion. Follow-up bronchoscopy or chest CT recommended once the effusion has resolved. Will follow the cultures and closely monitor in the tele floor. Dialysis catheter site seems okay. Hypoxia at home on CPAP, currently saturating well on 2 liters. WBC 29K, then normalized, now slight elevation at 12-13K Pulmonary medicine consulted given R sided loculated pl. effusion, recurrent PNA, poss. empyema, discussed w/ Dr. Dial Pt underwent R sided thoracentesis on 02/02, 500 cc of yellow cloudy fluid removed, fluid c/w parapneumonic effusion, pH 6.17, glc 52, sent for cultx , (exudative per Light's criteria) Recommend to cont. Abx, consider CT VATS Pl. fluid cultx (02/03/20) - no growth, gram stain - no organisms seen, moderate polys Blood cultx (01/30/20) - no growth in 5 days History of MRSA in the sputum in the past.Abx as above. Will follow cx History of pneumothorax on the right side. No pneumothorax now. Reviewed R pl. effusion (02/04) and re-assessed for poss. chest tube placement, now s/p chest tube placement (02/05/20), drains serosang. fluid 02/06 - switched to PO Augmentin from IV zosyn, and stopped vancomycin, pt will need at least 2 weeks of Abx treatment Urine cltx - mixed rebecca - repeated -> luis eduardo, nonsignificant Loose stools - obtained stool cultx, C. diff negative, resolved, now having loose stool again (02/07), will test for c. dff Nausea, emesis - now resolved Speech eval - no aspiration 02/01 History of sleep apnea. Continue CPAP at bedtime. History of CVA, on Lipitor and aspirin, continue same. History of chronic diastolic CHF, currently on dialysis. ESRD, on hemodialysis. HD on 01/31, pt hypotensive w/ nausea and emesis. Not able to remove fluid d/t hypotension. No further episodes of nausea during HD. Nephrology following. Diabetes mellitus type 2 Not on medication at home. Current HbA1c 5.0% insulin sliding scale while inpt Prolonged qt. to avoid qt prolonging drugs. Follow ekg in am, cardiology reviewed HTN On isosorbide mononitrate, terazosin. Holding amlodipine. Monitor BP as its somewhat on lower side. Now BP improved. Parkinson's disease. On Sinemet. Hypothyroidism. Synthroid. Hx of NSTEMI. On aspirin, statin and nitrate DVT prophylaxis. SCDs. heparin for now Disposition, continue tele, PT/OT prior to discharge. Social service to help with discharge planning. Likely [facility] Pt's updated over the phone on 02/08/2020. Admission and Anticipated Discharge Date Admission Date: January 30, 2020 Subjective Pt seen in follow up of pneumonia and other med. problems. She is laying in bed in NAD. R chest tube placed w/bloody drainage noted. Pt reports some discomfort at right upper chest d/t chest tube. Also reports having loose stools this AM. Pt was switched from IV Abx to PO Augmentin yesterday. No fever, chills, shortness of breath, abd. pain, nausea or vomiting. Reports good appetite. Review of Systems Review of Systems: All systems reviewed & are unremarkable except as noted in HPI & below Constitutional: no fever and no chills Respiratory: + cough (occasional) and + dyspnea (mild) Cardiovascular: + chest pain (R upper chest pain/ d/t chest tube placement); no palpitations Gastrointestinal: + diarrhea/loose stools; no abdominal pain, no nausea and no vomiting Physical Exam Physical Exam: Gen- elderly female laying in bed, AAO x 3, NAD, Hard of Hearing on NC 2L Head- NCAT, EOMI,Anicteric Sclera, No Posterior Pharyngeal Erythema Neck-Supple, No JVD Lungs- decreased breath sounds, + mild bibasilar crackles, R>L, no wheezing Chest- regular, no murmurs, R chest tube placed bloody drainage noted Abdomen- Soft, Bowel Sounds Present, Non Tender, Non Distended, No Rigidity, No Guarding : Kirby catheter placed, drains yellow urine Extremities-No Cyanosis, No Clubbing, No Edema, moves extremities spontaneously Neuro- alert and oriented and answering questions appropriately, very hard of hearing, speech fluent, no facial asymmetry, moves extremities but appears generally weak Psych- Normal Mood Results & Data Results & Data ([facility]) Vital Signs (Past 12 Hours) Vital Signs Temp Pulse Pulse Resp BP Pulse Ox 02/08/20 08:07 37 C 72 16 103/56 L 93 02/08/20 04:53 37.0 C 79 19 105/63 93 02/08/20 02:28 75 95 02/07/20 23:41 75 02/07/20 23:39 36.6 C 60 19 94/53 L 92 Laboratory Results 02/08/20 02/08/20 02/08/20 Range/Units 08:04 06:51 06:51 WBC (4.8-10.8) K/uL RBC (4.2-5.4) M/uL Hgb (12.0-16.0) g/dL Hct (37-47) % MCV (80-100) fL MCH (25-34) pg MCHC (32-36) g/dL RDW Std Deviation (36.4-46.3) fL RDW Coeff of Bhavin (11.5-14.5) % Plt Count (130-400) K/uL MPV (7.4-10.4) fL Sodium 135 L (136-145) mmol/L Potassium 3.7 (3.5-5.1) mmol/L Chloride 102 (98-107) mmol/L Carbon Dioxide 29 (21-32) mmol/L Anion Gap 4.0 (3-11) BUN 19 H (7-18) mg/dl Creatinine 3.60 H D (0.6-1.2) mg/dl Est Cr Clr Drug Dosing 14.9 ml/min Est GFR ( Amer) 13.8 Est GFR (Non-Af Amer) 11.9 BUN/Creatinine Ratio 5.2 L (10-20) Glucose 95 (70-99) mg/dl POC Glucose 91 (70-99) mg/dl Calcium 7.7 L (8.5-10.1) mg/dl Random Vancomycin 12.7 mcg/ml 02/08/20 02/07/20 02/07/20 Range/Units 06:51 21:44 16:17 WBC 12.96 H (4.8-10.8) K/uL RBC 3.05 L (4.2-5.4) M/uL Hgb 9.1 L (12.0-16.0) g/dL Hct 29.6 L (37-47) % MCV 97.0 (80-100) fL MCH 29.8 (25-34) pg MCHC 30.7 L (32-36) g/dL RDW Std Deviation 70.2 H (36.4-46.3) fL RDW Coeff of Bhavin 19.7 H (11.5-14.5) % Plt Count 378 (130-400) K/uL MPV 10.3 (7.4-10.4) fL Sodium (136-145) mmol/L Potassium (3.5-5.1) mmol/L Chloride (98-107) mmol/L Carbon Dioxide (21-32) mmol/L Anion Gap (3-11) BUN (7-18) mg/dl Creatinine (0.6-1.2) mg/dl Est Cr Clr Drug Dosing ml/min Est GFR ( Amer) Est GFR (Non-Af Amer) BUN/Creatinine Ratio (10-20) Glucose (70-99) mg/dl POC Glucose 107 H 102 H (70-99) mg/dl Calcium (8.5-10.1) mg/dl Random Vancomycin mcg/ml 02/07/20 Range/Units 11:33 WBC (4.8-10.8) K/uL RBC (4.2-5.4) M/uL Hgb (12.0-16.0) g/dL Hct (37-47) % MCV (80-100) fL MCH (25-34) pg MCHC (32-36) g/dL RDW Std Deviation (36.4-46.3) fL RDW Coeff of Bhavin (11.5-14.5) % Plt Count (130-400) K/uL MPV (7.4-10.4) fL Sodium (136-145) mmol/L Potassium (3.5-5.1) mmol/L Chloride (98-107) mmol/L Carbon Dioxide (21-32) mmol/L Anion Gap (3-11) BUN (7-18) mg/dl Creatinine (0.6-1.2) mg/dl Est Cr Clr Drug Dosing ml/min Est GFR ( Amer) Est GFR (Non-Af Amer) BUN/Creatinine Ratio (-20) Glucose (70-99) mg/dl POC Glucose 83 (70-99) mg/dl Calcium (8.5-10.1) mg/dl Random Vancomycin mcg/ml Medications Administered Current Inpatient Medications Acetaminophen (Acetaminophen 325 Mg Tab) 650 mg PO Q4H PRN PRN Reason: Pain or Fever Stop: 02/29/20 22:52 Last Admin: 02/07/20 14:57 Dose: 650 mg Documented by: Albuterol (Albut/Ipratrop 3mg/0.5mg Neb 3 Ml Vial) 3 ml NEB Q4R PRN PRN Reason: Shortness Of Breath Or Wheezing Stop: 03/04/20 10:59 Amoxicillin/Clavulanate Potassium (Amoxicillin/Clavulanate 500 Mg Tab) 1 tab PO QDD BAYRON; Protocol Stop: 02/14/20 16:29 Last Admin: 02/07/20 17:22 Dose: 1 tab Documented by: Aspirin (Aspirin 81 Mg Ectab) 162 mg PO DAILY BAYRON Stop: 03/01/20 08:59 Last Admin: 02/08/20 08:36 Dose: 162 mg Documented by: Atorvastatin Calcium (Atorvastatin 40 Mg Tab) 80 mg PO QAM B[facility]RON Stop: 03/01/20 08:59 Last Admin: 02/08/20 08:36 Dose: 80 mg Documented by: Calcium Acetate (Calcium Acetate 667 Mg Cap/Tab) 667 mg PO TIDM PRN PRN Reason: .SNACKS Stop: 03/01/20 07:59 Last Admin: 02/01/20 08:13 Dose: 667 mg Documented by: Carbidopa/Levodopa (Carbidopa/Levodopa 25/100mg Tab) 1 tab PO TIDM B[facility]RON Stop: 03/01/20 07:59 Last Admin: 02/08/20 08:35 Dose: 1 tab Documented by: Cyanocobalamin (Cyanocobalamin 500 Mcg Tablet (Vitamin B-12)) 1,000 mcg PO QAM BAYRON Stop: 03/01/20 08:59 Last Admin: 02/08/20 08:38 Dose: 1,000 mcg Documented by: Dextrose (Dextrose 50% 50 Ml Syringe) 25 - 50 ml IV UD PRN; Protocol PRN Reason: Hypoglycemia Protocol Stop: 02/29/20 23:44 Glucagon (Glucagon For Inj 1 Mg Vial) 1 mg SQ UD PRN; Protocol PRN Reason: Hypoglycemia Protocol Stop: 02/29/20 23:44 Glucose (Glucose 40% Gel 15 Gm Tube) 15 - 30 gm PO UD PRN; Protocol PRN Reason: Hypoglycemia Protocol Stop: 02/29/20 23:44 Glucose (Glucose 10 Tabs/Tube) 4 - 8 tabs PO UD PRN; Protocol PRN Reason: Hypoglycemia Protocol Stop: 02/29/20 23:44 Alteplase, Recombinant 10 mg/ (Syringe) 60 mls @ 0.0006 mls/min IPL Q12H BAYRON; Protocol Stop: 02/08/20 21:59 Last Admin: 02/07/20 22:37 Dose: 0.0006 mls/min Documented by: Dornase Cy 5 ml/ Syringe 30 mls @ 0.0006 mls/min IPL Q12H BAYRON; Protocol Stop: 02/08/20 21:59 Last Admin: 02/07/20 22:37 Dose: 0.0006 mls/min Documented by: Insulin Aspart (Insulin Aspart 100 Units/Ml 3 Ml Pen) 0 units SC ACHS [facility] Stop: 03/01/20 07:29 Last Admin: 02/08/20 09:45 Dose: Not Given Documented by: Isosorbide Mononitrate (Isosorbide [place]y Extended Rel 30 Mg Tabcr) 30 mg PO DAILY [facility] Stop: 03/01/20 08:59 Last Admin: 02/08/20 08:36 Dose: 30 mg Documented by: Lactobacillus Acidoph/Casei/Rhamnos (Advanced Probiotic 1250 Mg Capsule) 2 cap PO DAILY [facility] Stop: 03/04/20 11:59 Last Admin: 02/08/20 08:37 Dose: 2 cap Documented by: Levothyroxine Sodium (Levothyroxine Sodium 125 Mcg Tablet) 125 mcg PO DAILYBB [facility] Stop: 03/01/20 06:29 Last Admin: 02/08/20 06:05 Dose: 125 mcg Documented by: Lidocaine (Lidocaine 5% 1 Patch) 1 patch TD QAM [facility] Stop: 03/07/20 06:34 Last Admin: 02/08/20 08:38 Dose: 1 patch Documented by: Lidocaine (Lidocaine 5% 1 Patch) 1 patch TD QAM [facility] Stop: 03/07/20 15:14 Last Admin: 02/08/20 08:38 Dose: 1 patch Documented by: Miscellaneous (Carbohydrates For Hypoglycemia ) 15 - 30 gm PO UD PRN PRN Reason: Hypoglycemia Treatment Stop: 02/29/20 23:44 Miscellaneous (Remove Lidoderm Patch) 1 ea N/A DAILY@2100 [facility] Stop: 03/07/20 18:59 Last Admin: 02/07/20 22:36 Dose: 1 ea Documented by: Miscellaneous (Remove Lidoderm Patch) 1 ea N/A DAILY@2100 [facility] Stop: 03/07/20 20:59 Last Admin: 02/07/20 22:37 Dose: 1 ea Documented by: Nitroglycerin (Nitroglycerin Sl 0.4 Mg/Tab Tab) 0.4 mg SL UD PRN PRN Reason: Chest Pain Stop: 02/29/20 22:52 Terazosin HCl (Terazosin Hcl 5 Mg Cap) 5 mg PO HS [facility] Stop: 03/01/20 20:59 Last Admin: 02/07/20 22:36 Dose: Not Given Documented by: Tramadol HCl (Tramadol Hcl 50 Mg Tablet) 25 - 50 mg PO Q4H PRN PRN Reason: Pain Stop: 03/07/20 06:37 Last Admin: 02/08/20 05:04 Dose: 25 mg Documented by: Venlafaxine HCl (Venlafaxine Hcl Xr 75 Mg Capxr) 75 mg PO QAM [facility] Stop: 03/01/20 08:59 Last Admin: 02/08/20 08:37 Dose: 75 mg Documented by: Vitamin D (Cholecalciferol 1,000 Units 25 Mcg Tab) 5,000 units PO DAILY [facility] Stop: 03/01/20 08:59 Last Admin: 02/08/20 08:37 Dose: 5,000 units Documented by:
[2020-02-08] MEDS: ALTEPLASE, RECOMBINANT 10 MG in SYRINGE 50 ML IPL SCH (10:28)
[2020-02-08] MEDS: DORNASE ALFA 5 ML in SYRINGE 25 ML IPL SCH (11:45)
[2020-02-08] MEDS: SACCHAROMYCES BOULARDII 250 MG CAP PO SCH (11:54)
--- NOTE | 2020-02-08 15:25 | Pulmonology Progress Note ---
Date of Service February 08, 2020 Assessment & Plan (1) Pleural effusion: Impression: 74-year-old female with end-stage renal disease on dialysis admitted with likely parapneumonic effusion. Cultures are negative. She is status post pigtail drainage and currently undergoing mist protocol with good radiographic and clinical response. Recommendations: 1. Parapneumonic effusion: Cultures are no growth to date. X-ray shows improvement. Would continue mist protocol and repeat chest x-ray in morning. Would consider discontinuation of chest tube once drainage is less than 150 to 200 mL per 24 hours. Possibly in a.m. 2. Pneumonia: Completed day #7 Zosyn with cultures negative. Cultures may be negative as they were obtained after the patient had already been on antimicrobial therapy. Currently on Augmentin with plans to complete at least 2 weeks of therapy. 3. Management the patient's other medical issues per hospitalist service. (2) Pneumonia: Aspiration pneumonia type: unspecified Laterality: right Lung location: unspecified part of lung Pneumonia type: aspiration pneumonia Qualified Code(s): J69.0 - Pneumonitis due to inhalation of food and vomit Admission and Anticipated Discharge Date Admission Date: January 30, 2020 Physical Exam Constitutional: WD/WN, vitals as above Neck: trachea midline, no thyromegaly Respiratory: normal respiratory effort, lungs clear to auscultation Cardiovascular: RRR, no murmur, no edema Gastrointestinal (Abdomen): normal bowel sounds, soft, nontender, no hepatosplenomegaly Musculoskeletal: Extremities: extremities normal to inspection Skin: no rashes, warm and dry Lymphatic: no cervical lymphadenopathy Results & Data Results & Data ([facility]) Vital Signs (Past 12 Hours) Vital Signs Temp Pulse Pulse Resp BP Pulse Ox 02/08/20 08:07 37 C 72 16 103/56 L 93 02/08/20 08:00 77 02/08/20 04:53 37.0 C 79 19 105/63 93 Chest tube output 750 mL last 24 hours Pleural fluid cultures no growth to date Laboratory Results 02/08/20 06:51 02/08/20 06:51 Diagnostic Findings Chest x-ray today was reviewed. The pigtail catheter appears to be in good position. There is minimal blunting of the right costophrenic angle. PG Care Time/CCT Total # of Minutes Spent Total Time Spent with Patient: Total time spent is greater than 50% in coordination of care (as documented) at patient's floor/unit and/or counseling patient: Coding Level of Care Code 55832 Subseq Hosp Care Lvl 2 Diagnoses Pleural effusion J90 Pneumonia J69.0 Aspiration pneumonia type: unspecified Laterality: right Lung location: unspecified part of lung Pneumonia type: aspiration pneumonia
--- NOTE | 2020-02-08 15:35 | Nephrology Progress Note ---
Date of Service February 08, 2020 Assessment & Plan (1) ESRD (end stage renal disease) on dialysis: on TRSat HD >> for tx on 02/08 to keep on schedule with outpt holiday week timetables borderline bp again today and will reassess her before tx tomorrow -next HD tentatively for Fri, then sat or as clinical needs dictate -no heparin w/ tx d/t CT >once chest tube is out, recommend removing valerio Admission and Anticipated Discharge Date Admission Date: January 30, 2020 Subjective N today but pt denies emesis; note 2.5 L UOP reported << but suspect mistake in documentation though given previous UOP trends. tx terminated early 1/2 hr yest d/t emesis; 500 uf only; tx terminated early 1/2 hr yest d/t emesis; 500 uf only; Review of Systems Review of Systems: All systems reviewed & are unremarkable except as noted in HPI & below Respiratory: + cough, + dyspnea (improving) and + pain on inspiration Gastrointestinal: as per Subjective / HPI Musculoskeletal: shoulder pain better controlled today Physical Exam Constitutional: well developed and well nourished; no acute distress Eyes: EOM intact bilaterally ENMT: Ears: no external ear abnormality Nose: no external nose abnormality Mouth: + dry oral mucous membranes Neck: no nuchal rigidity Respiratory: normal respiratory effort Auscultation: + diminished lung sounds chest tube R chest w/ s-s drng Cardiovascular: Rate/Rhythm: regular rate and regular rhythm Extremities: no edema Gastrointestinal (Abdomen): Inspection/Auscultation: normal bowel sounds Percussion/Palpation: abdomen soft; abdomen nontender Musculoskeletal: Extremities: strength 5/5 throughout Skin: no rashes, warm and dry Neurologic: caballero, pyschomotor delay but appropriate/fluent speech, no tremor Psychiatric: Orientation: alert and oriented x 3 Genitourinary: valerio w/ scant urine Results & Data ([facility]) Vital Signs (Past 12 Hours) Vital Signs Temp Pulse Pulse Resp BP Pulse Ox 02/08/20 08:07 37 C 72 16 103/56 L 93 02/08/20 08:00 77 02/08/20 04:53 37.0 C 79 19 105/63 93 Laboratory Results 02/08/20 06:51 02/08/20 06:51
[2020-02-08] MEDS: AMOXICILLIN/CLAVULANATE 500 MG TAB PO SCH (17:54)
[2020-02-08] MEDS: TERAZOSIN HCL 5 MG CAP PO SCH (21:24)
[2020-02-09] MEDS: LEVOTHYROXINE SODIUM 125 MCG TABLET PO SCH (06:15)
[2020-02-09 06:22] LABS: Hematocrit (blood only) 25.4 % (37-47); Hemoglobin 7.9 g/dL (12.0-16.0); Mean Corpuscular Hemoglobin 29.9 pg (25-34); Mean Corpuscular Hgb Conc 31.1 g/dL (32-36); Mean Corpuscular Volume 96.2 fL (80-100); Mean Platelet Volume 10.2 fL (7.4-10.4); Platelet Count 369 K/uL (130-400); RDW Coefficient of Variation 19.6 % (11.5-14.5); RDW Standard Deviation 68.1 fL (36.4-46.3); Red Blood Count 2.64 M/uL (4.2-5.4); White Blood Count 8.88 K/uL (4.8-10.8)
[2020-02-09] MEDS ORDERED: ACETAMINOPHEN 325 MG TAB PO PRN (06:59)
[2020-02-09] MEDS ORDERED: EPOETIN ALFA 10,000 UNITS/ML VIAL IV ONE (07:00)
[2020-02-09] MEDS ORDERED: SODIUM CHLORIDE 0.9% 1000ML 1,000 ML IV PRN (07:00)
[2020-02-09 07:06] LABS: BUN Creatinine Ratio 5.8 (10-20); Calcium 7.7 mg/dl (8.5-10.1); Creatinine Clr Calc Pharmacy 11.9 ml/min; Est GFR (African American) 10.2; Est GFR (Non-African American) 8.8; Potassium 3.3 mmol/L (3.5-5.1)
[2020-02-09] MEDS: ASPIRIN 81 MG ECTAB PO SCH (07:55)
[2020-02-09] MEDS: ATORVASTATIN 40 MG TAB PO SCH (07:56)
[2020-02-09] MEDS: CHOLECALCIFEROL 1,000 UNITS 25 MCG TAB PO SCH (07:56)
[2020-02-09] MEDS: CARBIDOPA/LEVODOPA 25/100MG TAB PO SCH ×3 (07:56→18:43)
[2020-02-09] MEDS: CYANOCOBALAMIN 500 MCG TABLET (VITAMIN B-12) PO SCH (07:56)
[2020-02-09] MEDS: ADVANCED PROBIOTIC 1250 MG CAPSULE PO SCH (07:57)
[2020-02-09] MEDS: VENLAFAXINE HCL XR 75 MG CAPXR PO SCH (07:57)
[2020-02-09] MEDS: SACCHAROMYCES BOULARDII 250 MG CAP PO SCH (07:57)
[2020-02-09] MEDS: LIDOCAINE 5% 1 PATCH TD SCH ×2 (07:58)
--- NOTE | 2020-02-09 08:20 | XRay Report ---
SINGLE VIEW CHEST CLINICAL HISTORY: Dyspnea. FINDINGS: 2 AP, portable, upright chest radiographs are compared to study dated 02/08/2020. The [facility] is degraded by portable technique and patient rotation. A left subclavian central venous fuad ter and a pigtail catheter projecting over the right lung base are similar to previous. The heart is enlarged. The pulmonary vasculature is noncongested patchy airspace opacities in the right lung and a small right pleural effusion persist. There is atelectasis at the left lung base. No pneumothorax is seen. The skeletal structures are osteopenic. The bony thorax is grossly intact. Degenerative change is seen in the thoracic spine. IMPRESSION: 1. Stable lines and tubes. 2. Airspace opacities in the right midlung and a small right pleural effusion persist. 3. Cardiomegaly without radiographic evidence of congestive failure. ACT 112: Negative or not required by law. Electronically signed by: Deep Smith M.D. 02/09/2020 8:18 AM
[2020-02-09] MEDS: INSULIN ASPART 100 UNITS/ML 3 ML PEN SC SCH ×4 (09:24→21:48)
--- NOTE | 2020-02-09 10:10 | Surgery Consultation ---
Date of Consultation February 09, 2020 Assessment & Plan (1) ESRD (end stage renal disease) on dialysis: sutures removed from right forearm f/u with primary surgeon as planned/needed History of Present Illness Attending Physician: Geoffrey Das MD History of Present Illness 74 y/o female hospitalized for the past 10 days with pneumonia, ESRD and A-V fistula at another facility. We were asked to remove sutures from right forearm. Allergies Allergy/AdvReac Type Severity Reaction Status Date / Time No Known Allergies Allergy Verified 01/30/20 19:19 Home Medications Medication Instructions Recorded Confirmed Type carbidopa-levodopa 1 tab PO TIDM 08/21/18 01/30/20 History cyanocobalamin (vitamin B-12) 1,000 mcg PO QAM 08/21/18 01/30/20 History [Vitamin B-12] levothyroxine 125 mcg PO QAM 08/21/18 01/30/20 History terazosin 5 mg PO HS 04/20/19 01/30/20 History venlafaxine 75 mg PO QAM 08/15/19 01/30/20 History cholecalciferol (vitamin D3) 125 mcg PO DAILY 09/21/19 01/30/20 History [Vitamin D3] isosorbide mononitrate 30 mg PO DAILY 09/21/19 01/30/20 History pregabalin 100 mg PO BID 11/10/19 01/30/20 History aspirin 162 mg PO DAILY 01/06/20 01/30/20 History atorvastatin 80 mg PO QAM 01/06/20 01/30/20 History calcium acetate(phosphat bind) See Rx Instructions .ROUTE .COMPLEX 01/06/20 01/30/20 History Betahistine Dih See Rx Instructions .ROUTE .COMPLEX 01/30/20 01/30/20 History amlodipine 5 mg PO DAILY 01/30/20 01/30/20 History meclizine 25 mg PO TID PRN 01/30/20 01/30/20 History Patient History Medical History (Updated 02/03/20 @ 17:50 by Ayaz Dial MD) Chronic diastolic heart failure Depression Diabetes mellitus, type II Dyslipidemia ESRD (end stage renal disease) on dialysis Generalized anxiety disorder Goals of care, counseling/discussion HTN (hypertension) Hypothyroidism RACHEL (iron deficiency anemia) Meniere's disease RENÉ on CPAP Parkinson disease Restless leg syndrome Rheumatoid arthritis Subdural hematoma Surgical History H/O sinus surgery History of carpal tunnel surgery History of orthopedic surgery " bilat heel surgery" History of tubal ligation Hx of total knee arthroplasty "Left, Dr. Del Real" Family History Other AAA (abdominal aortic aneurysm) Diabetes Family history non-contributory Hypertension Myotonic dystrophy Social History Smoking Status: Former smoker Years Smoked: 50; Cigarettes Per Day: 0.25ppd; Second Hand Exposure: No; Hx Alcohol Use: No Hx Substance Use: No Preferred Language: Sammarinese Communication Ability: Effective Trip Rider Required: No Beliefs That Will Affect Care: None marital status: Current Living Situation: Spouse Current Living Situation Comment: lives in home with and has caregivers Other Information That Helps Us Care for You: No Feels Safe at Home: Yes Safety Concerns: Feels Safe At This Time Assistive Devices: Oxygen - Continuous Physical Exam Musculoskeletal: right forearm incision well healed, mattress sutures in place Results & Data ([facility]) Vital Signs (Past 12 Hours) Vital Signs Temp Pulse Pulse Resp BP Pulse Ox 02/09/20 08:00 36.4 C L 63 20 107/56 L 97 02/09/20 07:18 58 L 02/09/20 03:13 36.5 C 61 17 107/63 97 02/08/20 22:08 63 18 94 PG Care Time/CCT Total # of Minutes Spent Total Time Spent with Patient: Total time spent is greater than 50% in coordination of care (as documented) at patient's floor/unit and/or counseling patient: Coding Level of Care Code 70066 Initial Inpt Care Lvl 1 Diagnoses ESRD (end stage renal disease) on dialysis N18.6; Z99.2
--- NOTE | 2020-02-09 10:16 | Nephrology Progress Note ---
Date of Service February 09, 2020 Assessment & Plan (1) ESRD (end stage renal disease) on dialysis: on TRSat HD >> for tx on 02/08 to keep on schedule with outpt holiday week timetables Hemoglobin is 7.9. -Patient will be dialyzed today for 3-1/2 hours -We will give Epogen 10,000 units with dialysis -no heparin w/ tx d/t CT >once chest tube is out, recommend removing valerio Admission and Anticipated Discharge Date Admission Date: January 30, 2020 Subjective Seen in follow-up for ESRD. No shortness of breath. Still has chest tube on the right side. Review of Systems Review of Systems: All systems reviewed & are unremarkable except as noted in HPI & below Physical Exam Physical Exam: General exam: Appears comfortable, no acute distress HEENT: Pupils are equal and reactive to light Neck: No JVD, neck is supple trachea is midline Respiratory system: Clear breath sounds bilaterally. Right chest tube Gastrointestinal: Abdomen is soft, non distended, non tender, bowel sounds are present CVS: Regular rate and rhythm. No murmurs, rubs or gallops Musculoskeletal: No joint or muscle tenderness Extremities: Non tender, no edema, peripheral pulses are present Neuro: Oriented, no tremors, no focal neurological deficits Skin: No rashes Access: Left CVC Results & Data ([facility]) Vital Signs (Past 12 Hours) Vital Signs Temp Pulse Pulse Resp BP Pulse Ox 02/09/20 08:00 36.4 C L 63 20 107/56 L 97 02/09/20 07:18 58 L 02/09/20 03:13 36.5 C 61 17 107/63 97 Laboratory Results 02/09/20 05:47 02/09/20 05:47 WBC 8.88 RBC 2.64 L MCV 96.2 MCH 29.9 MCHC 31.1 L RDW Std Deviation 68.1 H RDW Coeff of Bhavin 19.6 H Plt Count 369 MPV 10.2
[2020-02-09] MEDS: ISOSORBIDE MONO EXTENDED REL 30 MG TABCR PO SCH (11:34)
--- NOTE | 2020-02-09 13:09 | Pulmonology Progress Note ---
Date of Service February 09, 2020 Assessment & Plan (1) Pleural effusion: Impression: 74-year-old female with end-stage renal disease on dialysis admitted with likely parapneumonic effusion. Cultures are negative. She is status post pigtail drainage and currently undergoing mist protocol with good radiographic and clinical response. Recommendations: 1. Parapneumonic effusion: Cultures are no growth to date. X-ray shows improvement. Drainage is still greater than 200 mL per 24 hours. Will hold additional intrapleural TPA/dornase and repeat chest x-ray and follow output in the morning. If less than 150 to 200 mL per 24-hour period, could consider discontinuation of the pigtail catheter. 2. Pneumonia: Completed day #7 Zosyn with cultures negative. Cultures may be negative as they were obtained after the patient had already been on antimicrobial therapy. Currently on Augmentin with plans to complete at least 2 weeks of therapy. 3. Management the patient's other medical issues per hospitalist service. Admission and Anticipated Discharge Date Admission Date: January 30, 2020 Subjective No new complaints Physical Exam Constitutional: WD/WN, vitals as above Neck: trachea midline, no thyromegaly Respiratory: normal respiratory effort, lungs clear to auscultation Cardiovascular: RRR, no murmur, no edema Gastrointestinal (Abdomen): normal bowel sounds, soft, nontender, no hepatosplenomegaly Musculoskeletal: Extremities: extremities normal to inspection Skin: no rashes, warm and dry Lymphatic: no cervical lymphadenopathy Results & Data Results & Data ([facility]) Vital Signs (Past 12 Hours) Vital Signs Temp Pulse Pulse Resp BP Pulse Ox 02/09/20 12:04 36.6 C 69 18 163/80 H 97 02/09/20 08:00 36.4 C L 63 20 107/56 L 97 02/09/20 07:18 58 L 02/09/20 03:13 36.5 C 61 17 107/63 97 Chest tube still with greater than 300 cc output Laboratory Results 02/09/20 05:47 02/09/20 05:47 Diagnostic Findings Chest x-ray from today was independently reviewed. Pigtail catheter appears to be in good position. Small residual right pleural fluid is noted. No pneumothorax. PG Care Time/CCT Total # of Minutes Spent Total Time Spent with Patient: Total time spent is greater than 50% in coordination of care (as documented) at patient's floor/unit and/or counseling patient: Coding Level of Care Code 21403 Subseq Hosp Care Lvl 2 Diagnoses Pleural effusion J90
--- NOTE | 2020-02-09 15:23 | Hospitalist Progress Note ---
Date of Service February 09, 2020 Assessment & Plan (1) Encephalopathy: Metabolic encephalopathy -This is a 74 y/o female with past medical history significant for end-stage renal disease, Parkinson disease, hypertension, hyperlipidemia, history of non- ST elevated myocardial infarction, history of cerebrovascular accident, history of chronic heart failure with preserved EF, presents with lethargy. as per the history that previous to the admission to hospital that patient woke up "confused and staring. Even on CPAP, her sats were low, in 70s and 80s at home. Her WBC elevated to 29,000 in the ER. Chest x-ray, questionable pulmonary edema versus diffuse haziness in the right hemithorax. CT of the head is unremarkable. The patient has history of lethargy in the past. In November, she was admitted with altered mental status, thought to be from sepsis and aspiration and also medications. At that time, meclizine, oxybutynin, and Mirapex had been discontinued." -appears to be at mental baseline currently (2) Pleural effusion: -patient was Empirically started on Vancomycin and Zosyn. -admission CT chest: Moderate right pleural effusion. Consolidation within the right upper and lower lobes posteriorly -Pt underwent R sided thoracentesis on 02/02, 500 cc of yellow cloudy fluid removed, fluid c/w parapneumonic effusion, pH 6.17, glc 52, sent for cultx , (exudative per Light's criteria). Pleural fluid cultures (02/03/20) - no growth, Blood cultures (01/30/20) -Speech evaluation - no aspiration 02/02/20 -02/03/2020 C.difficile negative -Right pleural effusion (02/04) was and s/p chest tube placement (02/05/20) -pulmonary service placed chest tube and following the patient while in the hospital -Patient has completed an IV antibiotics course of 7 days with cultures negative. on 02/07/20 the IV Zosyn and Vancomycin stopped and switched to oral Augmentin.Currently on Augmentin with plans to complete at least 2 weeks of therapy as per pulmonary consult -follow any new stool studies while on antibiotics -management of chest tube as per pulmonary consult, plans for valerio removal when chest tube can be removed (3) ESRD (end stage renal disease) on dialysis: History of chronic diastolic CHF History of NSTEMI in the past -patient to complete dialysis on 02/09/2020 with [facility] [place] -nephrology service coordinating dialysis days Hypertension -On isosorbide mononitrate, terazosin -continue aspirin and statin -Holding amlodipine for now History of stroke in the past -on Lipitor and aspirin, continue same. Parkinson's disease -On Sinemet. Prolonged QT -noted on admission EKG -avoid qt prolonging drugs History of sleep apnea -Continue CPAP at bedtime. Hypothyroidism -on Synthroid. Diabetes mellitus type 2 -Current HbA1c 5 -insulin sliding scale if needed DVT prophylaxis. SCDs Admission and Anticipated Discharge Date Admission Date: January 30, 2020 Subjective Patient seen and examined in the dialysis room while on dialysis. Patient has hearing impairments and because she did not have her hearing aids, it was difficult to communicate with her. She denies acute pain. Patient has chest tube and valerio. Patient denies other symptoms on review of systems Review of Systems Review of Systems: All systems reviewed & are unremarkable except as noted in Subjective Physical Exam Constitutional: + obese and comfortable Eyes: PERRL, conjunctivae normal, anicteric sclerae EOM intact bilaterally ENMT: external ear and nose normal, oropharynx normal Ears: + hearing impairment Neck: normal visual inspection Respiratory: normal respiratory effort Cardiovascular: Rate/Rhythm: + bradycardic Chest (Breasts): Chest: normal inspection of chest (has chest tube) Gastrointestinal (Abdomen): normal bowel sounds, soft, nontender, no hepatosplenomegaly Musculoskeletal: Head/Neck/Chest: normocephalic Neurologic: PERRL, EOMI, accommodation nl, no face palsy, no dysarthria Psychiatric: Orientation: alert and cooperative Genitourinary: + bladder abnormality (valerio) Results & Data Results & Data ([facility]) Vital Signs (Past 12 Hours) Vital Signs Temp Pulse Pulse Resp BP BP Pulse Ox 02/09/20 15:00 59 L 106/54 L 02/09/20 14:40 36.5 C 60 60 99/65 L 02/09/20 12:04 36.6 C 69 18 163/80 H 97 02/09/20 08:00 36.4 C L 63 20 107/56 L 97 02/09/20 07:18 58 L 02/09/20 03:13 36.5 C 61 17 107/63 97
[2020-02-09] MEDS: AMOXICILLIN/CLAVULANATE 500 MG TAB PO SCH (18:43)
[2020-02-09] MEDS: TERAZOSIN HCL 5 MG CAP PO SCH (20:45)
[2020-02-10] MEDS: traMADol HCL 50 MG TABLET PO PRN (04:17)
[2020-02-10] MEDS: LEVOTHYROXINE SODIUM 125 MCG TABLET PO SCH (06:04)
[2020-02-10 07:04] LABS: Basophils # (auto) 0.02 K/uL (0-0.2); Basophils % (auto) 0.2 %; Eosinophils # (auto) 0.56 K/uL (0-0.5); Eosinophils % (auto) 5.2 %; Hematocrit (blood only) 27.4 % (37-47); Hemoglobin 8.5 g/dL (12.0-16.0); Immature Granulocytes # (auto) 0.28 K/uL (0.00-0.02); Immature Granulocytes % (auto) 2.6 %; Lymphocytes # (auto) 1.22 K/uL (1.2-3.4); Lymphocytes % (auto) 11.3 %; Mean Corpuscular Hemoglobin 29.7 pg (25-34); Mean Corpuscular Volume 95.8 fL (80-100); Mean Platelet Volume 9.7 fL (7.4-10.4); Monocytes # (auto) 0.63 K/uL (0.11-0.59); Monocytes % (auto) 5.8 %; Neutrophils # (auto) 8.12 K/uL (1.4-6.5); Neutrophils % (auto) 74.9 %; Platelet Count 375 K/uL (130-400); RDW Coefficient of Variation 19.5 % (11.5-14.5); RDW Standard Deviation 67.7 fL (36.4-46.3); Red Blood Count 2.86 M/uL (4.2-5.4); White Blood Count 10.83 K/uL (4.8-10.8)
--- NOTE | 2020-02-10 08:30 | Hospitalist Progress Note ---
Date of Service February 10, 2020 Assessment & Plan (1) Encephalopathy: Metabolic encephalopathy -This is a 74 y/o female with past medical history significant for end-stage renal disease, Parkinson disease, hypertension, hyperlipidemia, history of non- ST elevated myocardial infarction, history of cerebrovascular accident, history of chronic heart failure with preserved EF, presents with lethargy. as per the history that previous to the admission to hospital that patient woke up "confused and staring. Even on CPAP, her sats were low, in 70s and 80s at home. Her WBC elevated to 29,000 in the ER. Chest x-ray, questionable pulmonary edema versus diffuse haziness in the right hemithorax. CT of the head is unremarkable. The patient has history of lethargy in the past. In November, she was admitted with altered mental status, thought to be from sepsis and aspiration and also medications. At that time, meclizine, oxybutynin, and Mirapex had been discontinued." -appears to be at mental baseline currently (2) Pleural effusion: -patient was Empirically started on Vancomycin and Zosyn. -admission CT chest: Moderate right pleural effusion. Consolidation within the right upper and lower lobes posteriorly -Pt underwent R sided thoracentesis on 02/02, 500 cc of yellow cloudy fluid removed, fluid c/w parapneumonic effusion, pH 6.17, glc 52, sent for cultx , (exudative per Light's criteria). Pleural fluid cultures (02/03/20) - no growth, Blood cultures (01/30/20) -Speech evaluation - no aspiration 02/02/20 -02/03/2020 C.difficile negative -Right pleural effusion (02/04) was and s/p chest tube placement (02/05/20) -pulmonary service placed chest tube and following the patient while in the hospital -Patient has completed an IV antibiotics course of 7 days with cultures negative. on 02/07/20 the IV Zosyn and Vancomycin stopped and switched to oral Augmentin.Currently on Augmentin with plans to complete at least 2 weeks of therapy as per pulmonary consult -follow any new stool studies while on antibiotics -management of chest tube as per pulmonary consult, plans for valerio removal when chest tube can be removed 02/10/2020 updates: Patient seen and examined at the bedside. Patient continues to have the chest tube and the valerio. Patient had CPAP/BIPAP overnight for sleep apnea. Currently seen on nasal cannula oxygen. No respiratory distress. No acute chest pain. Patient has auditory impairments that is chronic but denies other symptoms on review of symptoms. No vomiting. She ate her meals. Mild elevation in the WBC counts but no fevers. Hgb stable as 8.5. patienting awaiting to be seen by pulmonary physician on when the chest tube can be removed (3) ESRD (end stage renal disease) on dialysis: History of chronic diastolic CHF History of NSTEMI in the past Chronic anemia -patient to complete dialysis on 02/09/2020 with [facility] -nephrology service coordinating dialysis days -Hgb 02/10/2020 is 8.5 Hypertension -On isosorbide mononitrate, terazosin -continue aspirin and statin -Holding amlodipine for now History of stroke in the past -on Lipitor and aspirin, continue same. Parkinson's disease -On Sinemet. Prolonged QT -noted on admission EKG -avoid qt prolonging drugs History of sleep apnea -Continue CPAP at bedtime. Hypothyroidism -on Synthroid. Diabetes mellitus type 2 -Current HbA1c 5 -insulin sliding scale if needed DVT prophylaxis. SCDs Admission and Anticipated Discharge Date Admission Date: January 30, 2020 Subjective Patient seen and examined at the bedside. Patient continues to have the chest tube and the valerio. Patient had CPAP/BIPAP overnight for sleep apnea. Currently seen on nasal cannula oxygen. No respiratory distress. No acute chest pain. Patient has auditory impairments that is chronic but denies other symptoms on review of symptoms. No vomiting. She ate her meals. Mild elevation in the WBC counts but no fevers. Hgb stable as 8.5 Review of Systems Review of Systems: All systems reviewed & are unremarkable except as noted in Subjective Physical Exam Constitutional: + obese and comfortable Eyes: PERRL, conjunctivae normal, anicteric sclerae EOM intact bilaterally ENMT: external ear and nose normal, oropharynx normal Ears: + hearing impairment Neck: normal visual inspection Respiratory: normal respiratory effort Cardiovascular: Rate/Rhythm: + bradycardic Chest (Breasts): Chest: normal inspection of chest (has chest tube) Gastrointestinal (Abdomen): normal bowel sounds, soft, nontender, no hepatosplenomegaly Musculoskeletal: Head/Neck/Chest: normocephalic Neurologic: PERRL, EOMI, accommodation nl, no face palsy, no dysarthria Psychiatric: Orientation: alert and cooperative Genitourinary: + bladder abnormality (valerio) Results & Data Results & Data ([facility]) Vital Signs (Past 12 Hours) Vital Signs Temp Pulse Pulse Resp BP Pulse Ox 02/10/20 07:43 36.5 C 63 17 125/60 98 02/10/20 03:41 36.6 C 67 18 116/52 L 96 02/10/20 02:08 60 19 96 02/10/20 00:14 36.9 C 71 19 124/49 L 97 02/09/20 21:50 67 18 95
[2020-02-10] MEDS: ASPIRIN 81 MG ECTAB PO SCH (09:43)
[2020-02-10] MEDS: VENLAFAXINE HCL XR 75 MG CAPXR PO SCH (09:43)
[2020-02-10] MEDS: SACCHAROMYCES BOULARDII 250 MG CAP PO SCH (09:43)
[2020-02-10] MEDS: ISOSORBIDE MONO EXTENDED REL 30 MG TABCR PO SCH (09:43)
[2020-02-10] MEDS: ADVANCED PROBIOTIC 1250 MG CAPSULE PO SCH (09:43)
[2020-02-10] MEDS: CARBIDOPA/LEVODOPA 25/100MG TAB PO SCH ×3 (09:43→16:50)
[2020-02-10] MEDS: CHOLECALCIFEROL 1,000 UNITS 25 MCG TAB PO SCH (09:43)
[2020-02-10] MEDS: CYANOCOBALAMIN 500 MCG TABLET (VITAMIN B-12) PO SCH (09:43)
[2020-02-10] MEDS: ATORVASTATIN 40 MG TAB PO SCH (09:44)
[2020-02-10] MEDS: LIDOCAINE 5% 1 PATCH TD SCH ×2 (10:01→10:02)
[2020-02-10] MEDS: INSULIN ASPART 100 UNITS/ML 3 ML PEN SC SCH ×4 (10:02→20:42)
--- NOTE | 2020-02-10 10:09 | Nephrology Progress Note ---
Date of Service February 10, 2020 Assessment & Plan (1) ESRD (end stage renal disease) on dialysis: on TRSat HD >> for tx on 02/08 to keep on schedule with outpt holiday week timetables Hemoglobin is 7.9. She tolerated dialysis well yesterday with a net UF of 1 L. -Next dialysis will be tomorrow -We will give Epogen 10,000 units with dialysis -no heparin w/ tx d/t CT >once chest tube is out, recommend removing valerio Admission and Anticipated Discharge Date Admission Date: January 30, 2020 Subjective Seen in follow-up for ESRD. She had dialysis yesterday with net UF of 1 L. She denies any shortness of breath. Still has a right chest tube. Review of Systems Review of Systems: All systems reviewed & are unremarkable except as noted in HPI & below Physical Exam Physical Exam: General exam: Appears comfortable, no acute distress HEENT: Pupils are equal and reactive to light Neck: No JVD, neck is supple trachea is midline Respiratory system: Clear breath sounds bilaterally. Right chest tube Gastrointestinal: Abdomen is soft, non distended, non tender, bowel sounds are present CVS: Regular rate and rhythm. No murmurs, rubs or gallops Musculoskeletal: No joint or muscle tenderness Extremities: Non tender, no edema, peripheral pulses are present Neuro: Oriented, no tremors, no focal neurological deficits Skin: No rashes Results & Data ([facility]) Vital Signs (Past 12 Hours) Vital Signs Temp Pulse Pulse Resp BP Pulse Ox 02/10/20 07:43 36.5 C 63 17 125/60 98 02/10/20 03:41 36.6 C 67 18 116/52 L 96 02/10/20 02:08 60 19 96 02/10/20 00:14 36.9 C 71 19 124/49 L 97 Laboratory Results 02/09/20 05:47 02/10/20 06:34 WBC 10.83 H RBC 2.86 L MCV 95.8 MCH 29.7 MCHC 31.0 L RDW Std Deviation 67.7 H RDW Coeff of Bhavin 19.5 H Plt Count 375 MPV 9.7
--- NOTE | 2020-02-10 11:48 | XRay Report ---
XR chest 1V portable HISTORY: 74 years-old Female pleural effusion study in a patient with pleural effusions COMPARISON: Chest radiograph 02/09/2020 TECHNIQUE: Portable AP view of the chest FINDINGS: Cardiac silhouette is enlarged, unchanged. Stable positioning of the distal left subclavian hemodialy sis catheter. Mild pulmonary vascular congestion. No pneumothorax. Airspace opacities of the right mi dlung mildly improved. Trace left and small right pleural effusions redemonstrated. Mild left lung ba se atelectasis. Unchanged positioning of the right-sided pleural drainage catheter. Degenerative conn ges of the shoulders and spine. IMPRESSION: 1. Cardiomegaly with pulmonary vascular congestion and unchanged lateral right midlung opacities. 2. Trace left and small right pleural effusions are unchanged. 3. Stable positioning of the right-sided pleural drainage catheter. ACT 112: Negative or not required by law. The above report was generated using voice recognition software. It may contain grammatical, syntax o r spelling errors. Electronically signed by: Arnoldo Stiles M.D. 02/10/2020 11:47 AM
--- NOTE | 2020-02-10 12:19 | Pulmonology Progress Note ---
Date of Service February 10, 2020 Assessment & Plan (1) Pleural effusion: Impression: 74-year-old female with end-stage renal disease on dialysis admitted with likely parapneumonic effusion. Cultures are negative. She is status post pigtail drainage and currently undergoing mist protocol with good radiographic and clinical response. Recommendations: 1. Parapneumonic effusion: Cultures are no growth to date. Minimal drainage currently and chest x-ray demonstrates improvement. The patient may have some small reaccumulation of pleural fluid due to her end-stage renal disease and tejinder ng on dialysis but it seems reasonable to remove the catheter. I took it out at bedside with no difficulty. An occlusive dressing was applied. From a pulmonary perspective she can be dismissed from the hospital. Would recommend follow-up chest x-ray in 2 to 4 weeks with her primary care provider. 2. Pneumonia: Completed day #7 Zosyn with cultures negative. Cultures may be negative as they were obtained after the patient had already been on antimicrobial therapy. Currently on Augmentin with plans to complete at least 2 weeks of therapy. 3. Management the patient's other medical issues per hospitalist service. We will sign off at this point time. Feel free to contact us with any a dditional questions or concerns Admission and Anticipated Discharge Date Admission Date: January 30, 2020 Subjective Patient offers no complaints. No cough or sputum production. She is off oxygen. She is tolerating a diet. She had minimal drainage. Her chest x-ray appears unchanged Physical Exam Constitutional: WD/WN, vitals as above Neck: trachea midline, no thyromegaly Respiratory: normal respiratory effort, lungs clear to auscultation Cardiovascular: RRR, no murmur, no edema Gastrointestinal (Abdomen): normal bowel sounds, soft, nontender, no hepatosplenomegaly Musculoskeletal: Extremities: extremities normal to inspection Skin: no rashes, warm and dry Lymphatic: no cervical lymphadenopathy Results & Data Results & Data ([facility]) Vital Signs (Past 12 Hours) Vital Signs Temp Pulse Pulse Pulse Resp BP Pulse Ox 02/10/20 12:03 36.7 C 63 19 126/70 92 02/10/20 07:43 36.5 C 63 17 125/60 98 02/10/20 03:41 36.6 C 67 18 116/52 L 96 02/10/20 02:08 60 19 96 Laboratory Results 02/10/20 06:34 02/09/20 05:47 Cultures remain negative to date Diagnostic Findings Chest x-ray from today demonstrated the chest tube in stable position. Small right-sided effusion is noted without pneumothorax. PG Care Time/CCT Total # of Minutes Spent Total Time Spent with Patient: Total time spent is greater than 50% in coordination of care (as documented) at patient's floor/unit and/or counseling patient: Coding Level of Care Code 98725 Subseq Hosp Care Lvl 2 Diagnoses Pleural effusion J90
--- NOTE | 2020-02-10 12:20 | Procedure Note ---
Procedure Note Date of Service February 10, 2020 Chest tube removal Proceduralist Dr. Forman Consent: Discussed with patient. She expressed understanding and is agreeable to proceed. Anesthesia: None The stay sutures for the existing 8 [place] skater catheter was clipped. The dressing was taken down. Once the locking mechanism was released, the tube was pulled on exhalation and a Bioclusive dressing was applied. Patient tolerated the procedure well with no difficulty. Coding CPT Codes Pulmonary/Thoracic - Pulmonary and Thoracic: 50724 Remove lung catheter ([id number]) [facility] [place] Procedure Codes (Charges) Pulmonary/Thoracic Procedure 1: Pulmonary and Thoracic: 39363 Remove lung catheter
[2020-02-10] MEDS: AMOXICILLIN/CLAVULANATE 500 MG TAB PO SCH (16:50)
[2020-02-10] MEDS ORDERED: ALUMINUM/MAGNESIUM SUSP 30 ML UDC PO STA (16:56)
[2020-02-10] MEDS ORDERED: ZOLPIDEM TARTRATE 5 MG TAB PO STA (20:13)
[2020-02-10] MEDS: TERAZOSIN HCL 5 MG CAP PO SCH (20:32)
[2020-02-11] MEDS: LEVOTHYROXINE SODIUM 125 MCG TABLET PO SCH (05:04)
[2020-02-11] MEDS: CARBIDOPA/LEVODOPA 25/100MG TAB PO SCH ×2 (07:47→11:53)
[2020-02-11] MEDS: VENLAFAXINE HCL XR 75 MG CAPXR PO SCH (08:02)
[2020-02-11] MEDS: ADVANCED PROBIOTIC 1250 MG CAPSULE PO SCH (08:03)
[2020-02-11] MEDS: SACCHAROMYCES BOULARDII 250 MG CAP PO SCH (08:03)
[2020-02-11] MEDS: ASPIRIN 81 MG ECTAB PO SCH (08:04)
[2020-02-11] MEDS: ATORVASTATIN 40 MG TAB PO SCH (08:04)
[2020-02-11] MEDS: CHOLECALCIFEROL 1,000 UNITS 25 MCG TAB PO SCH (08:04)
[2020-02-11] MEDS: CYANOCOBALAMIN 500 MCG TABLET (VITAMIN B-12) PO SCH (08:07)
[2020-02-11] MEDS: INSULIN ASPART 100 UNITS/ML 3 ML PEN SC SCH ×2 (08:12→12:34)
[2020-02-11] MEDS: CALCIUM ACETATE 667 MG CAP/TAB PO SCH ×2 (08:54→11:53)
[2020-02-11] MEDS: ISOSORBIDE MONO EXTENDED REL 30 MG TABCR PO SCH (08:54)
--- NOTE | 2020-02-11 09:01 | Hospitalist Progress Note ---
Date of Service February 11, 2020 Assessment & Plan (1) Encephalopathy: Metabolic encephalopathy -This is a 74 y/o female with past medical history significant for end-stage renal disease, Parkinson disease, hypertension, hyperlipidemia, history of non- ST elevated myocardial infarction, history of cerebrovascular accident, history of chronic heart failure with preserved EF, presents with lethargy. as per the history that previous to the admission to hospital that patient woke up "confused and staring. Even on CPAP, her sats were low, in 70s and 80s at home. Her WBC elevated to 29,000 in the ER. Chest x-ray, questionable pulmonary edema versus diffuse haziness in the right hemithorax. CT of the head is unremarkable. The patient has history of lethargy in the past. In November, she was admitted with altered mental status, thought to be from sepsis and aspiration and also medications. At that time, meclizine, oxybutynin, and Mirapex had been discontinued." -appears to be at mental baseline currently (2) Pleural effusion: Loculated Pleural effusion (parapneumonia effusion/pneumonia), s/p chest tube placement on 02/05/20, chest tube removed on02/10/2020 -patient was Empirically started on Vancomycin and Zosyn. -admission CT chest: Moderate right pleural effusion. Consolidation within the right upper and lower lobes posteriorly -Pt underwent R sided thoracentesis on 02/02, 500 cc of yellow cloudy fluid removed, fluid c/w parapneumonic effusion, pH 6.17, glc 52, sent for cultx , (exudative per Light's criteria). Pleural fluid cultures (02/03/20) - no growth, Blood cultures (01/30/20) -Speech evaluation - no aspiration 02/02/20 -02/03/2020 C.difficile negative -Right pleural effusion (02/04) was and s/p chest tube placement (02/05/20) -pulmonary service placed chest tube and following the patient while in the hospital -Patient has completed an IV antibiotics course of 7 days with cultures negative. on 02/07/20 the IV Zosyn and Vancomycin stopped and switched to oral Augmentin.Currently on Augmentin with plans to complete at least 2 weeks of therapy as per pulmonary consult -chest tube removed by pulmonary service on 02/10/2020, valerio also removed, patient transferred from telemetry watson to medicine watson, patient worked with PT/OT -02/11/2020: Patient seen and examined at the bedside. No acute distress. Patient on room air. Patient denies shortness of breath or chest pain or back pain. Patient denies other symptoms on review of systems. Had discussed with case management on coordinating with her and outpatient dialysis to see of patient can be discharged with outpatient antibiotics. If patient stays in the hospital, then her next dialysis session in the hospital will be Friday02/12/2020 (3) ESRD (end stage renal disease) on dialysis: History of chronic diastolic CHF History of NSTEMI in the past Chronic anemia -[facility] service coordinating dialysis days -Hgb 02/10/2020 is 8.5 Hypertension -On isosorbide mononitrate, terazosin -continue aspirin and statin -Holding the amlodipine History of stroke in the past -on Lipitor and aspirin, continue same. Parkinson's disease -On Sinemet. Prolonged QTc by EKGs -noted on admission EKG, continues to have prolonged QTc on EKG re-assessment on 02/10/2020 -patient denies anterior chest discomforts -avoid qt prolonging drugs History of sleep apnea -Continue CPAP at bedtime. Hypothyroidism -on Synthroid. Diabetes mellitus type 2 -Current HbA1c 5 -insulin sliding scale if needed when in the hospital DVT prophylaxis. SCDs when in the hospital Admission and Anticipated Discharge Date Admission Date: January 30, 2020 Subjective -02/11/2020: Patient seen and examined at the bedside. No acute distress. Patient on room air. Patient denies shortness of breath or chest pain or back pain. Patient denies other symptoms on review of systems. Had discussed with case management on coordinating with her and outpatient dialysis to see of patient can be discharged with outpatient antibiotics. If patient stays in the hospital, then her next dialysis session in the hospital will be Friday02/12/2020 Review of Systems Review of Systems: All systems reviewed & are unremarkable except as noted in Subjective Physical Exam Constitutional: + obese and comfortable Eyes: PERRL, conjunctivae normal, anicteric sclerae EOM intact bilaterally ENMT: external ear and nose normal, oropharynx normal Ears: + hearing impairment Neck: normal visual inspection Respiratory: normal respiratory effort Cardiovascular: Rate/Rhythm: + bradycardic Gastrointestinal (Abdomen): normal bowel sounds, soft, nontender, no hepatosplenomegaly Musculoskeletal: Head/Neck/Chest: normocephalic Neurologic: PERRL, EOMI, accommodation nl, no face palsy, no dysarthria Psychiatric: Orientation: alert and cooperative Results & Data Results & Data ([facility]) Vital Signs (Past 12 Hours) Vital Signs Temp Pulse Pulse Resp BP Pulse Ox 02/11/20 07:33 36.5 C 68 20 132/84 93 02/11/20 02:27 46 L 16 97 02/10/20 22:26 36.6 C 64 16 119/71 93 02/10/20 21:20 61 16 97
--- NOTE | 2020-02-11 09:42 | Nephrology Progress Note ---
Date of Service February 11, 2020 Assessment & Plan (1) ESRD (end stage renal disease) on dialysis: on TRSat HD >> for tx on 02/08 to keep on schedule with outpt holiday week timetables Hemoglobin is 7.9. No need for dialysis today -Next dialysis will be tomorrow, Friday and this can be done as an outpatient as well -We will give Epogen 10,000 units with dialysis -no heparin w/ tx d/t CT Admission and Anticipated Discharge Date Admission Date: January 30, 2020 Subjective Seen in follow-up for ESRD. No shortness of breath or pain. Patient remains weak. Review of Systems Review of Systems: All systems reviewed & are unremarkable except as noted in HPI & below Physical Exam Physical Exam: General exam: Appears comfortable, no acute distress HEENT: Pupils are equal and reactive to light Neck: No JVD, neck is supple trachea is midline Respiratory system: Clear breath sounds bilaterally. Gastrointestinal: Abdomen is soft, non distended, non tender, bowel sounds are present CVS: Regular rate and rhythm. No murmurs, rubs or gallops Musculoskeletal: No joint or muscle tenderness Extremities: Non tender, no edema, peripheral pulses are present Neuro: Oriented, no tremors, no focal neurological deficits Skin: No rashes Results & Data ([facility]) Vital Signs (Past 12 Hours) Vital Signs Temp Pulse Pulse Resp BP Pulse Ox 02/11/20 07:33 36.5 C 68 20 132/84 93 02/11/20 02:27 46 L 16 97 02/10/20 22:26 36.6 C 64 16 119/71 93 Laboratory Results 02/09/20 05:47
--- NOTE | 2020-02-11 09:52 | Discharge Summary ---
Date of Service February 11, 2020 Admission HPI Per Admitting Provider DICTATED BY: Rylan Stoll MD DATE OF ADMISSION: 01/30/2020 CHIEF COMPLAINT: Lethargy. HISTORY OF PRESENT ILLNESS: This is a 74-year-old female with past medical history significant for end-stage renal disease, on hemodialysis, currently has left subclavian catheter; history of diabetes; hypothyroidism; hyperlipidemia; sleep apnea; COPD; hypertension; chronic heart failure with preserved ejection fraction; morbid obesity; nonalcoholic steatohepatitis; restless legs syndrome; venous stasis dermatitis of both extremities; primary Parkinson disease; Meniere disease, cochlear active; degenerative disease of nervous system; iron deficiency anemia; rheumatoid arthritis; major depression; generalized anxiety disorder; history of non-ST elevated myocardial infarction; mild neurocognitive disorder; personal history of fall; history of cerebrovascular accident. The patient lives with her . The patient had dialysis yesterday. Generally she wakes up at 7:30 in the morning, but today she was not waking up until 1:00 pm and the patient's did not wake her up because generally after dialysis she is worn out. At 1:00pm , when she opened eyes she was just staring, she was confused, and her says that whenever she is acting like that her oxygen levels are low, so he checked her pulse ox, it was in 80s and 70s. So he called the ambulance and brought in here. Currently, the patient, on 2 L she is saturating fine. Initially her blood pressure was on the lower side, but improved. Her white count was 29,000. Creatinine is 5.1. Lactate is normal at 1.6. Repeat COVID test is negative. CT of the head is unremarkable. Chest x-ray, diffuse haziness of the right hemithorax ,dependent layering pleural effusion versus asymmetric airspace disease versus asymmetric pulmonary edema. EKG is okay. The patient received daptomycin and Zosyn in the ER. Currently, patient is more alert and awake, could tell her name, could tell her date of . Complains of pain in the hands and legs. Denies any other pain, As per , there is no cough, no nausea, vomiting, no diarrhea. She did not make any urine today. She did not eat anything today. The patient is very hard of hearing, could not get complete review of systems. ALLERGIES: No known drug allergies. PAST MEDICAL HISTORY: As mentioned above. PAST SURGICAL HISTORY: Left total knee arthroplasty, carpal tunnel surgery, colonoscopy, sinus surgery, lumbosacral shots, insertion of the tunneled catheter, ligation of the oviducts, bilateral heel surgery, third toe nerve decompression. MEDICATIONS: The patient is on amlodipine 5 mg p.o. daily, aspirin 162 mg p.o. daily, atorvastatin 80 mg p.o. daily, calcium acetate as directed, carbidopa/levodopa 1 tablet p.o. t.i.d., vitamin D 125 mcg p.o. daily, vitamin B12 1000 mcg p.o. a.m., isosorbide mononitrate 30 mg p.o. daily, levothyroxine 125 mcg p.o. daily, meclizine 25 mg p.o. t.i.d. p.r.n., pregabalin 100 mg p.o. b.i.d., terazosin 5 mg at bedtime, venlafaxine 75 mg p.o. a.m. FAMILY HISTORY: Mother had myasthenia gravis, hypertension; father has diabetes, heart disorder, also had abdominal aortic aneurysm, hypertension; brother has myotonic dystrophy, diabetes; sister has myotonic dystrophy. SOCIAL HISTORY: and lives with . Former smoker, quit in 1989, smoked an average of quarter pack a day for 50 years. No alcohol use, no drug use. REVIEW OF SYSTEMS: Alert and awake, oriented to name, could tell her date of . PHYSICAL EXAMINATION: VITAL SIGNS: Temperature 36.6, pulse 196, respiratory rate 20s, blood pressure currently 119/42, oxygen 95% on 2 liters. HEENT: Pupils equal, round, and reactive to light. Oral mucosa dry. NECK: No neck masses, no carotid bruits. CARDIOVASCULAR: S1, S2 heard, regular rate and rhythm, no murmur, no gallop. RESPIRATORY SYSTEM: Normal AP diameter. No accessory muscle use. No wheezing, no crackles. ABDOMEN: Soft, bowel sounds present, nontender. No distention. CENTRAL NERVOUS SYSTEM: Alert and awake, oriented to name, could tell her date of . Answers simple questions. Moves extremities. EXTREMITIES: No edema or erythema seen. LABORATORY DATA: WBC 29.5, hemoglobin 13.2, hematocrit 42.5, platelets 267. Sodium 135, potassium 3.7, chloride 101, bicarbonate 28, BUN 33, creatinine 5.1, serum glucose 115, lactate 1.6, calcium 8.6, magnesium 2.2, total bilirubin 0.4, AST 61, ALT 14, alkaline phosphatase 151. TSH 0.6. COVID-19 rapid test negative. IMAGING DATA: CT of the head, no acute intracranial abnormality. Chest x-ray, cardiomegaly with pulmonary vascular congestion, diffuse haziness of the right hemithorax may reflect a dependent layering pleural effusion versus asymmetric airspace disease versus asymmetric pulmonary edema. EKG: Normal sinus rhythm with rate of 87, nonspecific intraventricular conduction block, QTc of 519. Principal Diagnosis Metabolic encephalopathy loculated Pleural effusion (parapneumonia effusion/pneumonia), s/p chest tube placement on 02/05/20, chest tube removed on02/10/2020 ESRD (end stage renal disease) on dialysis: Chronic anemia History of chronic diastolic CHF Hypertension History of stroke in the past Parkinson's disease Prolonged QTc by EKGs History of sleep apnea Hypothyroidism Diabetes mellitus type 2 Discharge Exam Constitutional + obese and comfortable Eyes PERRL, conjunctivae normal, anicteric sclerae EOM intact bilaterally ENMT external ear and nose normal, oropharynx normal Ears: + hearing impairment Neck normal visual inspection Respiratory normal respiratory effort Cardiovascular Rate/Rhythm: + bradycardic Gastrointestinal (Abdomen) normal bowel sounds, soft, nontender, no hepatosplenomegaly Musculoskeletal Head/Neck/Chest: normocephalic Neurologic PERRL, EOMI, accommodation nl, no face palsy, no dysarthria Psychiatric Orientation: alert and cooperative Discharge Data Allergies Allergy/AdvReac Type Severity Reaction Status Date / Time No Known Allergies Allergy Verified 01/30/20 19:19 Consultations 01/30/20 20:12 ED Decision to Admit Stat 01/30/20 22:53 Consult Case Management - Discharge Planning Routine 01/31/20 08:00 Consult Nephrology Routine 02/01/20 10:11 Consult Cardiology Routine 02/02/20 14:27 Consult Pulmonology Routine 02/08/20 15:02 Consult General Surgery Routine Ordered Studies 01/30/20 17:30 CT head/brain wo con Stat 01/30/20 22:04 CT chest wo con Urgent 02/02/20 14:32 US point of care ultrasound Urgent 02/03/20 13:47 US point of care ultrasound Urgent 02/04/20 08:07 US point of care ultrasound Urgent 02/05/20 18:39 US point of care ultrasound Urgent Hospital Course (1) Encephalopathy: Metabolic encephalopathy -This is a 74 y/o female with past medical history significant for end-stage renal disease, Parkinson disease, hypertension, hyperlipidemia, history of non- ST elevated myocardial infarction, history of cerebrovascular accident, history of chronic heart failure with preserved EF, presents with lethargy. as per the history that previous to the admission to hospital that patient woke up "confused and staring. Even on CPAP, her sats were low, in 70s and 80s at home. Her WBC elevated to 29,000 in the ER. Chest x-ray, questionable pulmonary edema versus diffuse haziness in the right hemithorax. CT of the head is unremarkable. The patient has history of lethargy in the past. In November, she was admitted with altered mental status, thought to be from sepsis and asp iration and also medications. At that time, meclizine, oxybutynin, and Mirapex had been discontinued." -appears to be at mental baseline currently (2) Pleural effusion: Loculated Pleural effusion (parapneumonia effusion/pneumonia), s/p chest tube placement on 02/05/20, chest tube removed on02/10/2020 -patient was Empirically started on Vancomycin and Zosyn. -admission CT chest: Moderate right pleural effusion. Consolidation within the right upper and lower lobes posteriorly -Pt underwent R sided thoracentesis on 02/02, 500 cc of yellow cloudy fluid removed, fluid c/w parapneumonic effusion, pH 6.17, glc 52, sent for cultx , (exudative per Light's criteria). Pleural fluid cultures (02/03/20) - no growth, Blood cultures (01/30/20) -Speech evaluation - no aspiration 02/02/20 -02/03/2020 C.difficile negative -Right pleural effusion (02/04) was and s/p chest tube placement (02/05/20) -pulmonary service placed chest tube and following the patient while in the hospital -Patient has completed an IV antibiotics course of 7 days with cultures negative. on 02/07/20 the IV Zosyn and Vancomycin stopped and switched to oral Augmentin on 02/07/2020.Currently on Augmentin with plans to complete at least 2 weeks of therapy as per pulmonary consult -chest tube removed by pulmonary service on 02/10/2020, valerio also removed, patient transferred from telemetry watson to medicine watson, patient worked with PT/OT -02/11/2020: Patient seen and examined at the bedside. No acute distress. Patient on room air. Patient denies shortness of breath or chest pain or back pain. Patient denies other symptoms on review of systems. Had discussed with case management on coordinating with her and outpatient dialysis to see of patient can be discharged with outpatient antibiotics. If patient stays in the hospital, then her next dialysis session in the hospital will be Friday02/12/2020 discharge medications sent electronically to patient's preferred pharmacy [address] [place] [address] of renally dosed Augmentin (500mg/125mg) antibiotics daily for 10 days recommend a follow-up chest x-ray in 2 to 4 weeks with her primary care provider scheduled appointments 02/16/2020 11:20 AM Provider Vianca Kitchen MD Department Internal Medicine [facility] 02/28/2020 1:00 PM Provider Alverto Chu MD Department Pulmonary Medicine, [facility] 03/27/2020 1:50 PM Provider Erica Tobar MD Department Nephrology, [facility] (3) ESRD (end stage renal disease) on dialysis: History of chronic diastolic CHF History of NSTEMI in the past Chronic anemia -patient to complete dialysis on 02/09/2020 with epogen -nephrology service coordinating dialysis days -Hgb 02/10/2020 is 8.5 Hypertension -On isosorbide mononitrate, terazosin -continue aspirin and statin -Holding the amlodipine on this admission. blood pressures okay without amlodipine. discontinue this medication on discharge medication list History of stroke in the past -on Lipitor and aspirin, continue same. Parkinson's disease -On Sinemet. Prolonged QTc by EKGs -noted on admission EKG, continues to have prolonged QTc on EKG re-assessment on 02/10/2020 -patient denies anterior chest discomforts -avoid qt prolonging drugs History of sleep apnea -Continue CPAP at bedtime. Hypothyroidism -on Synthroid. Diabetes mellitus type 2 -Current HbA1c 5 -insulin sliding scale if needed when in the hospital DVT prophylaxis. SCDs when in the hospital Total Time Total Time Spent Total Time Spent (In Minutes): 40 minutes Total Time Includes: Examination of the Patient, Discharge Planning, Medication Reconciliation and Communication With Other Providers Discharge Plan Discharge Items Patient Disposition: Home - Home Health Services Reason For Visit: LETHARGY Discharge Diagnosis: Metabolic encephalopathy loculated Pleural effusion (parapneumonia effusion/pneumonia), s/p chest tube placement on 02/05/20, chest tube removed on02/10/2020 ESRD (end stage renal disease) on dialysis: Chronic anemia History of chronic diastolic CHF Hypertension History of stroke in the past Parkinson's disease Prolonged QTc by EKGs History of sleep apnea Hypothyroidism Diabetes mellitus type 2 Condition on Discharge: Good Activity: Per Instructions section Non-emergency contact: Primary Care Provider, Brood Hatchery Manager and Word Processor Operator Call non-emergency contact if: you have any medication questions Follow-up/Referrals: Bella Power MD [Primary Care Provider] - Diet: Dialysis Renal Addtl Attending Provider Instructions: discharge medications sent electronically to patient's preferred pharmacy [address] [facility] [address] of renally dosed Augmentin (500mg/125mg) antibiotics daily for 10 days recommend a follow-up chest x-ray in 2 to 4 weeks with her primary care provider scheduled appointments 02/16/2020 11:20 AM Provider Vianca Kitchen MD Department Internal Medicine [facility] 02/28/2020 1:00 PM Provider Alverto Chu MD Department Pulmonary Medicine, [facility] 03/27/2020 1:50 PM Provider Erica Tobar MD Department Nephrology, [facility] Pending Studies at Discharge: No Stand-Alone Forms: My [facility] Seeonic, Smoking Cessation Medications and DC Order Prescriptions: New amoxicillin-pot clavulanate 500-125 mg Tablet 1 tab PO QDD 10 Days Qty: 10 RF: 0 Continued carbidopa-levodopa 25-100 mg tablet 1 tab PO TIDM RF: 0 cyanocobalamin (vitamin B-12) [Vitamin B-12] 1,000 mcg Tablet 1,000 mcg PO QAM RF: 0 levothyroxine 125 mcg tablet 125 mcg PO QAM RF: 0 terazosin 5 mg capsule 5 mg PO HS RF: 0 venlafaxine 75 mg capsule,extended release 24hr 75 mg PO QAM RF: 0 cholecalciferol (vitamin D3) [Vitamin D3] 125 mcg (5,000 unit) Tablet 125 mcg PO DAILY RF: 0 isosorbide mononitrate 30 mg tablet extended release 24 hr 30 mg PO DAILY RF: 0 pregabalin 100 mg capsule 100 mg PO BID RF: 0 atorvastatin 80 mg tablet 80 mg PO QAM RF: 0 aspirin 81 mg tablet,delayed release (DR/EC) 162 mg PO DAILY RF: 0 calcium acetate(phosphat bind) 667 mg capsule See Rx Instructions .ROUTE .COMPLEX RF: 0 meclizine 25 mg Tablet 25 mg PO TID PRN (Reason: Dizziness) RF: 0 Discontinued Betahistine Dih 16 mg tablet See Rx Instructions .ROUTE .COMPLEX RF: 0 amlodipine 5 mg tablet 5 mg PO DAILY RF: 0 Discharge Orders: Discharge Order (Routine); Ordered 02/11/20 Ordered By: Geoffrey Das Admission Data Admit Date/Time: 01/30/20 21:52 Attending Provider: Geoffrey Das Admit Provider: Rylan Stoll Primary Care Provider: Bella Power Other Providers: [facility] ; Geoffrey Washington ; Rylan Stoll ; Erica Tobar ; Alvarez Hyatt Muqueet ; Alverto Ortega
[2020-02-11 09:56] LABS: Basophils # (auto) 0.02 K/uL (0-0.2); Basophils % (auto) 0.2 %; Eosinophils % (auto) 4.9 %; Hematocrit (blood only) 25.6 % (37-47); Immature Granulocytes # (auto) 0.31 K/uL (0.00-0.02); Immature Granulocytes % (auto) 2.5 %; Lymphocytes # (auto) 1.44 K/uL (1.2-3.4); Lymphocytes % (auto) 11.8 %; Mean Corpuscular Hemoglobin 29.6 pg (25-34); Mean Corpuscular Hgb Conc 31.3 g/dL (32-36); Mean Corpuscular Volume 94.8 fL (80-100); Mean Platelet Volume 9.7 fL (7.4-10.4); Monocytes # (auto) 0.64 K/uL (0.11-0.59); Monocytes % (auto) 5.3 %; Neutrophils # (auto) 9.16 K/uL (1.4-6.5); Neutrophils % (auto) 75.3 %; Platelet Count 402 K/uL (130-400); RDW Coefficient of Variation 19.6 % (11.5-14.5); RDW Standard Deviation 66.9 fL (36.4-46.3); White Blood Count 12.17 K/uL (4.8-10.8)
[2020-02-11 10:38] LABS: Alanine Aminotransferase < 6 U/L (12-78); Albumin Globulin Ratio 0.5 (0.9-2); Albumin Level 2.2 gm/dl (3.4-5.0); Alkaline Phosphatase 107 U/L (45-117); Aspartate Aminotransferase 14 U/L (15-37); BUN Creatinine Ratio 3.8 (10-20); Bilirubin,Total 0.2 mg/dl (0.2-1); Blood Urea Nitrogen 17 mg/dl (7-18); Calcium 7.8 mg/dl (8.5-10.1); Carbon Dioxide 29 mmol/L (21-32); Chloride 105 mmol/L (98-107); Creatinine Clr Calc Pharmacy 12.1 ml/min; Est GFR (African American) 10.6; Est GFR (Non-African American) 9.2; Globulin 4.5 gm/dl (2.5-4.0); Glucose 122 mg/dl (70-99); Potassium 3.2 mmol/L (3.5-5.1); Sodium 139 mmol/L (136-145); Total Protein 6.7 gm/dl (6.4-8.2)
--- NOTE | 2020-02-11 22:30 | Electrocardiogram Report ---
Test Reason : Blood Pressure : / mmHG Vent. Rate : 074 BPM Atrial Rate : 074 BPM P-R Int : 166 ms QRS Dur : 160 ms QT Int : 500 ms P-R-T Axes : 029 018 104 degrees QTc Int : 555 ms Sinus rhythm with frequent , and consecutive Premature ventricular complexes Left bundle branch block Abnormal ECG When compared with ECG of 31-JAN-2020 06:20, Premature ventricular complexes are now Present Confirmed by Jerod Ngo ([id number]) on 02/11/2020 10:30:07 PM Referred By: REFERRED SELF Confirmed By:Jerod Ngo
--- NOTE | 2020-02-20 14:12 | Coding Query ---
CODING QUERY To promote full compliance with coding requirements relating to patient care, provider participation is requested in all cases of wireless operator uncertainty. Please assist us with the question(s) below: Coding Question(s): Dialysis patient admitted for aspiration pneumonia. Pleural effusion discovered. Patient x2 thoracentesis, one session with chest tube insertion. Progress notes document aspiration pneumonia and pleural effusion. Discharge Summary mentions Pleural Effusion/Parapneumonic / Pneumonia. Please check below the diagnoses that were treated during this Inpatient Stay. Empyema was also documented. Pleural fluid negative. Thanks for your help!! Remington Logan [facility] Physician's Response(s): Aspiration Pneumonia x Pleural Effusion/Parapneumonic Empyema Other/ Please document: Principal Diagnosis: "that condition established after study, to be chiefly responsible for occasioning the admission of the patient to the hospital for care." Co-Existing Principal Diagnosis: "when two or more diagnoses equally meet the criteria for principal diagnosis as determined by the circumstances of admission, diagnostic work up, and/or therapy provided, and the Alphabetic Index, Tabular List, or another coding guideline does not provide sequencing direction, any one of the diagnoses may be sequenced first." "When the physician has documented what appears to be a current diagnosis in the body of the record, but has not included the diagnosis in the final diagnostic statement, the physician should be asked whether the diagnosis should be added." ([facility] 2 QTR90. p3-4) BRENDA
--- NOTE | 2020-02-24 06:31 | Coding Query ---
CODING QUERY To promote full compliance with coding requirements relating to patient care, provider participation is requested in all cases of casting operator uncertainty. Please assist us with the question(s) below: Coding Question(s): Discharge summary documents patient with loculated pleural effusion/parapneumonic effusion & pneumonia. Thoracentesis with chest tube insertion during this IP stay. Hospitalist and Pulmonary notes mention aspiration pneumonia. Discharge summary does not mention type of pneumonia. Seeking to clarify the type of pneumonia that was treated . Please check the phrase that applies. Thank you ! ANTONIA Correia [facility] Physician's Response(s): Aspiration Pneumonia x__ Pneumonia, Unspecified Cannot Clinically Correlate the type of pneumonia that was treated Other/ Please document Principal Diagnosis: "that condition established after study, to be chiefly responsible for occasioning the admission of the patient to the hospital for care." Co-Existing Principal Diagnosis: "when two or more diagnoses equally meet the criteria for principal diagnosis as determined by the circumstances of admission, diagnostic work up, and/or therapy provided, and the Alphabetic Index, Tabular List, or another coding guideline does not provide sequencing direction, any one of the diagnoses may be sequenced first." "When the physician has documented what appears to be a current diagnosis in the body of the record, but has not included the diagnosis in the final diagnostic statement, the physician should be asked whether the diagnosis should be added." ([facility] 2 QTR90. p3-4) BRENDA
== END 2020-02-11 13:40 | disposition home health service (06) | DRG 177 ==
LOC: ED 16:44 → 2S 21:52 → SUATTDRO 21:52 → 2S 22:14 → 2W 02-10 13:05

== ENCOUNTER 2020-03-04 17:28 | Inpatient (IN) ==
--- NOTE | 2020-03-04 18:05 | Emergency Department Note ---
Impression & Plan Hypoxia, Lethargy, Non-ST elevation [place] (NSTEMI) ED Provider Note Provider: Kennedy Finch MD DATE OF SERVICE:03/04/2020 CHIEF COMPLAINT: Shortness of breath, lethargy HISTORY OF PRESENT ILLNESS: Patient is a 74-year-old female long complex medical history including end-stage renal nasal dialysis, diabetes, hypothyroidism, COPD, heart failure, nonalcoholic steatohepatitis, Parkinson's, CVA presenting here today via ambulance due to initiate developed after dialysis. Patient evidently did complete dialysis today and on the way home with her she became lethargic and somewhat short of breath and they stopped at the [facility]. Was found to be in the 40s on room air and placed on oxygen. Was somewhat lethargic per EMS report. Patient's hypoxia is improved a nd upon arrival is on nonrebreather in the high 90s. She is quite hard of hearing but does answer questions although seems a little bit fatigued. She denies any significant pain at this time. Denies any falls. With her permission discussed with via phone. Patient does report a bit of nausea here. reports that she took her CPAP off overnight may be around 4 AM and this morning he noted her pulse ox was down in the 70s but improved quickly with some brief supplemental oxygen in the low 90s at home. Went to dialysis and did require some oxygen dialysis had some nausea. Evidently they did make at home but the patient became lethargic and her pulse ox was in the 40s at home so activated EMS and brought her to the local ambulance station. No fevers or traumas otherwise reported. REVIEW OF SYSTEMS: A total of 10 review of systems was obtained and negative except as stated above in the HPI. PAST MEDICAL HISTORY: As noted above MEDICATIONS: Reviewed home medication list SOCIAL HISTORY: Lives at home with . PHYSICAL EXAM: GENERAL: alert and oriented to person but somewhat slow to answer. In no acute distress on stretcher Head: normocephalic and atraumatic EYES: No injection, discharge or icterus. PERRL NECK: Trachea midline. Supple. ENT: Mucous membranes pink and moist. LUNGS: Airway patent. No retractions. Breath sounds with few scattered wheeze. HEART: Regular rate and rhythm with occasional ectopy. No chest wall tenderness ABDOMEN: Soft and non-tender, without guarding or rebound. SKIN: Acyanotic, warm, dry, without rashes EXTREMITIES: Patient with some 1+ bilateral lower extremity edema. NEUROLOGICAL: No focal deficits. No aphasia. No facial droop or slurred speech but somewhat slow to answer and seems somewhat drowsy. EK beats minute sinus rhythm with occasional PVC without acute ST segment elevation but a left bundle branch block is noted. Compared to previous from February 09 of this year appears similar. CONTINUOUS CARDIAC MONITORING: was ordered and showed a heart rate of 80 bpm in normal sinus rhythm with PVCs Patient's laboratory studies and imaging reviewed. Differential includes Infection, dehydration, metabolic abnormality, hypo/hyperglycemia, electrolyte disturbance, anemia, hypoxia, cardiac sources, intracerebral event, toxicologic, neurologic, as well as other pathologies. IMPRESSION/MEDICAL DECISION MAKING: Patient is also is a bit drowsy is now requiring oxygen but weaned quickly down to 3 L. No fevers or significant trauma reported. does report CPAP fell off and he stopped respiratory issues significantly in the past. Basic labs do show some leukocytosis. VBG without significant acidosis and very mild hypercarbia but appears compensated. Question of her lethargy earlier was from the hypoxia does not have focal deficits lower suspicion at this time for an acute CVA. Coronavirus testing was completed needed. Covid testing was negative. No significant electrolyte abnormality. Ammonia is undetectable. Lipase not elevated. Considered PE in the diagnosis however not significant tachycardic and symptoms of and waxing waning and very easily improved with just small amount of oxygen here. Patient while on HD states she does not want be on HD long-term and and use of IV contrast material may cause her to be stuck on dialysis. Given this will defer at this time given her stability at this point will defer CT PE. Chest x-ray with some haziness in both lungs questions edema versus inflammatory infectious process. Some of this may be slightly fluid rel ated. Hospitalist contacted for further monitoring given her symptoms today. Patient still denies any chest pain at this time likely demand from the hypoxia caused his elevation of the troponin. Given some aspirin here for an additional towards full dose. Will defer additional anticoagulation to the hospitalist team. Given the leukocytosis is stable lower suspicion for severe infection procalcitonin is not significantly elevated. Will hold off on antibiotics at this time. Updated via phone several times and he came to get the hearing aids and lift straps to take home with him. DIAGNOSIS: Lethargy, hypoxia, NSTEMI DISPOSITION: Hospitalist will evaluate Patient and updated with this plan. Critical Care I have personally spent 34 minutes of critical care time in the direct management of this patient. This includes bedside care, interpretation of diagnostic studies, and testing, discussion with consultants, patient, and family members, and other required patient management activities. These 34 minutes is in excess of all separately billable procedures. Past Med/Surg History Medical History (Updated 03/04/20 @ 20:16 by Kennedy Finch M.D.) AMS (altered mental status) Aspiration pneumonia Chronic diastolic heart failure Depression Diabetes mellitus, type II Dyslipidemia ESRD (end stage renal disease) on dialysis Generalized anxiety disorder Goals of care, counseling/discussion HTN (hypertension) Hypothyroidism Hypoxemia RACHEL (iron deficiency anemia) Meniere's disease RENÉ on CPAP Parkinson disease Pneumonia Restless leg syndrome Rheumatoid arthritis Subdural hematoma Surgical History H/O sinus surgery History of carpal tunnel surgery History of orthopedic surgery " bilat heel surgery" History of tubal ligation Hx of total knee arthroplasty "Left, Dr. Del Real" Family History Other AAA (abdominal aortic aneurysm) Diabetes Family history non-contributory Hypertension Myotonic dystrophy Social History Smoking Status: Never smoker Years Smoked: 50; Cigarettes Per Day: 0.25ppd; Second Hand Exposure: No; Hx Alcohol Use: No Hx Substance Use: No Preferred Language: Hungarian Communication Ability: Effective Premium Auditor Required: No Beliefs That Will Affect Care: None marital status: Current Living Situation: Spouse Current Living Situation Comment: lives in home with and has caregivers Feels Safe at Home: Yes Assistive Devices: CPAP, Glasses, Hearing Aid - Bilateral and Oxygen - at Night Allergies Allergies Allergy/AdvReac Type Severity Reaction Status Date / Time No Known Allergies Allergy Verified 01/30/20 19:19 Home Meds Home Medications Medication Instructions Recorded Confirmed carbidopa-levodopa 1 tab PO TIDM 08/21/18 01/30/20 cyanocobalamin (vitamin B-12) 1,000 mcg PO QAM 08/21/18 01/30/20 [Vitamin B-12] levothyroxine 125 mcg PO QAM 08/21/18 01/30/20 terazosin 5 mg PO HS 04/20/19 01/30/20 venlafaxine 75 mg PO QAM 08/15/19 01/30/20 cholecalciferol (vitamin D3) 125 mcg PO DAILY 09/21/19 01/30/20 [Vitamin D3] isosorbide mononitrate 30 mg PO DAILY 09/21/19 01/30/20 pregabalin 100 mg PO BID 11/10/19 01/30/20 aspirin 162 mg PO DAILY 01/06/20 01/30/20 atorvastatin 80 mg PO QAM 01/06/20 01/30/20 calcium acetate(phosphat bind) See Rx Instructions .ROUTE .COMPLEX 01/06/20 01/30/20 meclizine 25 mg PO TID PRN 01/30/20 01/30/20 Results & Data (ED) Vital Signs Vital Signs - 24 hr 03/04/20 17:44 03/04/20 17:45 03/04/20 18:01 Temperature 37.2 C Temperature Source Oral Pulse Rate 77 Pulse Rate from SpO2 Sensor Respiratory Rate 16 Respiratory Effort / Characteristics Non-Labored Spontaneous Respiratory Depth Normal Respiratory Pattern Regular Blood Pressure 123/48 L Blood Pressure Mean 73 Blood Pressure Position Lying Pulse Oximetry 86 L 86 L 99 Oxygen Delivery Method Room Air Room Air Nasal Cannula Nasal Cannula Oxygen Flow Rate 3 Sepsis Recent Fever Within 48 Hours No Sepsis New/Unexplained Change in Mental Status N/A Sepsis Action Taken by Nursing No Action Required Oxygen Flow Rate - Titration 3 Pulse Oximetry Post Tiitration 99 03/04/20 18:16 03/04/20 18:30 03/04/20 19:00 Temperature Temperature Source Pulse Rate 77 76 70 Pulse Rate from SpO2 Sensor 60 Respiratory Rate 18 20 17 Respiratory Effort / Characteristics Respiratory Depth Respiratory Pattern Blood Pressure 118/61 123/50 L Blood Pressure Mean 80 84 Blood Pressure Position Pulse Oximetry 99 99 100 Oxygen Delivery Method Nasal Cannula Nasal Cannula Oxygen Flow Rate 3 3 Sepsis Recent Fever Within 48 Hours Sepsis New/Unexplained Change in Mental Status Sepsis Action Taken by Nursing Oxygen Flow Rate - Titration Pulse Oximetry Post Tiitration 03/04/20 19:30 03/04/20 20:00 03/04/20 20:02 Temperature Temperature Source Pulse Rate 76 77 79 Pulse Rate from SpO2 Sensor 76 74 82 Respiratory Rate 13 19 18 Respiratory Effort / Characteristics Respiratory Depth Respiratory Pattern Blood Pressure 122/49 L Blood Pressure Mean 75 Blood Pressure Position Pulse Oximetry 100 99 99 Oxygen Delivery Method Nasal Cannula Oxygen Flow Rate 3 Sepsis Recent Fever Within 48 Hours Sepsis New/Unexplained Change in Mental Status Sepsis Action Taken by Nursing Oxygen Flow Rate - Titration Pulse Oximetry Post Tiitration Laboratory Data Result diagrams: 03/04/20 18:06 03/04/20 18:06 Lab Results 03/04/20 03/04/20 03/04/20 Range/Units 18:03 18:03 18:06 WBC (4.8-10.8) K/uL RBC (4.2-5.4) M/uL Hgb (12.0-16.0) g/dL Hct (37-47) % MCV (80-100) fL MCH (25-34) pg MCHC (32-36) g/dL RDW Std Deviation (36.4-46.3) fL RDW Coeff of Bhavin (11.5-14.5) % Plt Count (130-400) K/uL MPV (7.4-10.4) fL Immature Gran % (Auto) % Neut % (Auto) % Lymph % (Auto) % Barren % (Auto) % Eos % (Auto) % Baso % (Auto) % Neut # (Auto) (1.4-6.5) K/uL Lymph # (Auto) (1.2-3.4) K/uL Barren # (Auto) (0.11-0.59) K/uL Eos # (Auto) (0-0.5) K/uL Baso # (Auto) (0-0.2) K/uL Immature Gran # (Auto) (0.00-0.02) K/uL PT (9.0-12.0) Seconds INR (0.9-1.1) D-Dimer (0-500) ug/L FEU VBG pH (7.36-7.41) VBG pCO2 (38-50) mmHg VBG pO2 mmHg VBG HCO3 mmol/L VBG O2 Saturation % VBG Base Excess mEq/L Barometric Pressure mm/Hg Sodium (136-145) mmol/L Potassium (3.5-5.1) mmol/L Chloride (98-107) mmol/L Carbon Dioxide (21-32) mmol/L Anion Gap (3-11) BUN (7-18) mg/dl Creatinine (0.6-1.2) mg/dl Est Cr Clr Drug Dosing Est GFR ( Amer) Est GFR (Non-Af Amer) BUN/Creatinine Ratio (10-20) Glucose (70-99) mg/dl Lactate (0.4-2.0) mmol/L Calcium (8.5-10.1) mg/dl Magnesium (1.8-2.4) mg/dl Total Bilirubin (0.2-1) mg/dl AST (15-37) U/L ALT (12-78) U/L Alkaline Phosphatase (45-117) U/L Ammonia (11-32) umol/L Troponin I (0-0.045) ng/ml Total Protein (6.4-8.2) gm/dl Albumin (3.4-5.0) gm/dl Globulin (2.5-4.0) gm/dl Albumin/Globulin Ratio (0.9-2) Lipase (73-393) U/L Procalcitonin (0-0.5) ng/ml TSH (0.300-4.500) uIu/ml Urine Color Urine Appearance (Clear) Urine pH (4.5-7.5) Ur Specific Lincoln (1.000-1.030) Urine Protein (Negative) Urine Glucose (UA) (Negative) Urine Ketones (Negative) Urine Blood (Negative) Urine Nitrite (Negative) Urine Bilirubin (Negative) Urine Urobilinogen (Negative) Ur Leukocyte Esterase (Negative) Urine WBC (Auto) (0-5) /hpf Urine RBC (Auto) (0-4) /hpf U Hyaline Cast (Auto) (0-5) /lpf U Epithel Cells (Auto) (0-5) /lpf Urine Bacteria (Auto) (Negative) COVID-19 Eval Order Covid19 [facility] SARS-CoV-2, RNA, NAAT NEGATIVE (NEGATIVE) Blood Type O Positive Antibody Screen NEGATIVE 03/04/20 03/04/20 03/04/20 Range/Units 18:06 18:06 18:06 WBC (4.8-10.8) K/uL RBC (4.2-5.4) M/uL Hgb (12.0-16.0) g/dL Hct (37-47) % MCV (80-100) fL MCH (25-34) pg MCHC (32-36) g/dL RDW Std Deviation (36.4-46.3) fL RDW Coeff of Bhavin (11.5-14.5) % Plt Count (130-400) K/uL MPV (7.4-10.4) fL Immature Gran % (Auto) % Neut % (Auto) % Lymph % (Auto) % Barren % (Auto) % Eos % (Auto) % Baso % (Auto) % Neut # (Auto) (1.4-6.5) K/uL Lymph # (Auto) (1.2-3.4) K/uL Barren # (Auto) (0.11-0.59) K/uL Eos # (Auto) (0-0.5) K/uL Baso # (Auto) (0-0.2) K/uL Immature Gran # (Auto) (0.00-0.02) K/uL PT 11.1 (9.0-12.0) Seconds INR 1.1 (0.9-1.1) D-Dimer 3240 H* (0-500) ug/L FEU VBG pH (7.36-7.41) VBG pCO2 (38-50) mmHg VBG pO2 mmHg VBG HCO3 mmol/L VBG O2 Saturation % VBG Base Excess mEq/L Barometric Pressure mm/Hg Sodium 137 (136-145) mmol/L Potassium 3.2 L (3.5-5.1) mmol/L Chloride 98 (98-107) mmol/L Carbon Dioxide 34 H (21-32) mmol/L Anion Gap 5.0 (3-11) BUN 13 (7-18) mg/dl Creatinine 2.46 H (0.6-1.2) mg/dl Est Cr Clr Drug Dosing Not Reportable Est GFR ( Amer) 21.8 Est GFR (Non-Af Amer) 18.8 BUN/Creatinine Ratio 5.4 L (10-20) Glucose 100 H (70-99) mg/dl Lactate 1.1 (0.4-2.0) mmol/L Calcium 8.2 L (8.5-10.1) mg/dl Magnesium 1.9 (1.8-2.4) mg/dl Total Bilirubin 0.3 (0.2-1) mg/dl AST 21 (15-37) U/L ALT 10 L (12-78) U/L Alkaline Phosphatase 129 H (45-117) U/L Ammonia (11-32) umol/L Troponin I 1.080 H* (0-0.045) ng/ml Total Protein 8.2 (6.4-8.2) gm/dl Albumin 2.9 L (3.4-5.0) gm/dl Globulin 5.3 H (2.5-4.0) gm/dl Albumin/Globulin Ratio 0.5 L (0.9-2) Lipase (73-393) U/L Procalcitonin (0-0.5) ng/ml TSH 1.540 (0.300-4.500) uIu/ml Urine Color Urine Appearance (Clear) Urine pH (4.5-7.5) Ur Specific Lincoln (1.000-1.030) Urine Protein (Negative) Urine Glucose (UA) (Negative) Urine Ketones (Negative) Urine Blood (Negative) Urine Nitrite (Negative) Urine Bilirubin (Negative) Urine Urobilinogen (Negative) Ur Leukocyte Esterase (Negative) Urine WBC (Auto) (0-5) /hpf Urine RBC (Auto) (0-4) /hpf U Hyaline Cast (Auto) (0-5) /lpf U Epithel Cells (Auto) (0-5) /lpf Urine Bacteria (Auto) (Negative) COVID-19 Eval Order SARS-CoV-2, RNA, NAAT (NEGATIVE) Blood Type Antibody Screen 03/04/20 03/04/20 03/04/20 Range/Units 18:06 18:06 18:06 WBC 12.13 H (4.8-10.8) K/uL RBC 2.88 L (4.2-5.4) M/uL Hgb 8.4 L (12.0-16.0) g/dL Hct 27.2 L (37-47) % MCV 94.4 (80-100) fL MCH 29.2 (25-34) pg MCHC 30.9 L (32-36) g/dL RDW Std Deviation 66.2 H (36.4-46.3) fL RDW Coeff of Bhavin 19.1 H (11.5-14.5) % Plt Count 279 (130-400) K/uL MPV 10.1 (7.4-10.4) fL Immature Gran % (Auto) 0.6 % Neut % (Auto) 73.2 % Lymph % (Auto) 10.9 % Barren % (Auto) 9.0 % Eos % (Auto) 6.1 % Baso % (Auto) 0.2 % Neut # (Auto) 8.89 H (1.4-6.5) K/uL Lymph # (Auto) 1.32 (1.2-3.4) K/uL Barren # (Auto) 1.09 H (0.11-0.59) K/uL Eos # (Auto) 0.74 H (0-0.5) K/uL Baso # (Auto) 0.02 (0-0.2) K/uL Immature Gran # (Auto) 0.07 H (0.00-0.02) K/uL PT (9.0-12.0) Seconds INR (0.9-1.1) D-Dimer (0-500) ug/L FEU VBG pH 7.42 H (7.36-7.41) VBG pCO2 53 H (38-50) mmHg VBG pO2 24 mmHg VBG HCO3 34 mmol/L VBG O2 Saturation < 60.0 % VBG Base Excess 7.9 mEq/L Barometric Pressure 739.9 mm/Hg Sodium (136-145) mmol/L Potassium (3.5-5.1) mmol/L Chloride (98-107) mmol/L Carbon Dioxide (21-32) mmol/L Anion Gap (3-11) BUN (7-18) mg/dl Creatinine (0.6-1.2) mg/dl Est Cr Clr Drug Dosing Est GFR ( Amer) Est GFR (Non-Af Amer) BUN/Creatinine Ratio (10-20) Glucose (70-99) mg/dl Lactate (0.4-2.0) mmol/L Calcium (8.5-10.1) mg/dl Magnesium (1.8-2.4) mg/dl Total Bilirubin (0.2-1) mg/dl AST (15-37) U/L ALT (12-78) U/L Alkaline Phosphatase (45-117) U/L Ammonia < 10.0 L (11-32) umol/L Troponin I (0-0.045) ng/ml Total Protein (6.4-8.2) gm/dl Albumin (3.4-5.0) gm/dl Globulin (2.5-4.0) gm/dl Albumin/Globulin Ratio (0.9-2) Lipase (73-393) U/L Procalcitonin (0-0.5) ng/ml TSH (0.300-4.500) uIu/ml Urine Color Urine Appearance (Clear) Urine pH (4.5-7.5) Ur Specific Lincoln (1.000-1.030) Urine Protein (Negative) Urine Glucose (UA) (Negative) Urine Ketones (Negative) Urine Blood (Negative) Urine Nitrite (Negative) Urine Bilirubin (Negative) Urine Urobilinogen (Negative) Ur Leukocyte Esterase (Negative) Urine WBC (Auto) (0-5) /hpf Urine RBC (Auto) (0-4) /hpf U Hyaline Cast (Auto) (0-5) /lpf U Epithel Cells (Auto) (0-5) /lpf Urine Bacteria (Auto) (Negative) COVID-19 Eval Order SARS-CoV-2, RNA, NAAT (NEGATIVE) Blood Type Antibody Screen 03/04/20 03/04/20 03/04/20 Range/Units 18:06 18:06 18:28 WBC (4.8-10.8) K/uL RBC (4.2-5.4) M/uL Hgb (12.0-16.0) g/dL Hct (37-47) % MCV (80-100) fL MCH (25-34) pg MCHC (32-36) g/dL RDW Std Deviation (36.4-46.3) fL RDW Coeff of Bhavin (11.5-14.5) % Plt Count (130-400) K/uL MPV (7.4-10.4) fL Immature Gran % (Auto) % Neut % (Auto) % Lymph % (Auto) % Barren % (Auto) % Eos % (Auto) % Baso % (Auto) % Neut # (Auto) (1.4-6.5) K/uL Lymph # (Auto) (1.2-3.4) K/uL Barren # (Auto) (0.11-0.59) K/uL Eos # (Auto) (0-0.5) K/uL Baso # (Auto) (0-0.2) K/uL Immature Gran # (Auto) (0.00-0.02) K/uL PT (9.0-12.0) Seconds INR (0.9-1.1) D-Dimer (0-500) ug/L FEU VBG pH (7.36-7.41) VBG pCO2 (38-50) mmHg VBG pO2 mmHg VBG HCO3 mmol/L VBG O2 Saturation % VBG Base Excess mEq/L Barometric Pressure mm/Hg Sodium (136-145) mmol/L Potassium (3.5-5.1) mmol/L Chloride (98-107) mmol/L Carbon Dioxide (21-32) mmol/L Anion Gap (3-11) BUN (7-18) mg/dl Creatinine (0.6-1.2) mg/dl Est Cr Clr Drug Dosing Est GFR ( Amer) Est GFR (Non-Af Amer) BUN/Creatinine Ratio (10-20) Glucose (70-99) mg/dl Lactate (0.4-2.0) mmol/L Calcium (8.5-10.1) mg/dl Magnesium (1.8-2.4) mg/dl Total Bilirubin (0.2-1) mg/dl AST (15-37) U/L ALT (12-78) U/L Alkaline Phosphatase (45-117) U/L Ammonia (11-32) umol/L Troponin I (0-0.045) ng/ml Total Protein (6.4-8.2) gm/dl Albumin (3.4-5.0) gm/dl Globulin (2.5-4.0) gm/dl Albumin/Globulin Ratio (0.9-2) Lipase 85 (73-393) U/L Procalcitonin 0.36 (0-0.5) ng/ml TSH (0.300-4.500) uIu/ml Urine Color Yellow Urine Appearance Cloudy A (Clear) Urine pH >= 9.0 H (4.5-7.5) Ur Specific Lincoln 1.011 (1.000-1.030) Urine Protein 3+ H (Negative) Urine Glucose (UA) Negative (Negative) Urine Ketones Negative (Negative) Urine Blood 3+ H (Negative) Urine Nitrite Negative (Negative) Urine Bilirubin Negative (Negative) Urine Urobilinogen Negative (Negative) Ur Leukocyte Esterase Trace H (Negative) Urine WBC (Auto) 1-5 (0-5) /hpf Urine RBC (Auto) >30 H (0-4) /hpf U Hyaline Cast (Auto) 0 (0-5) /lpf U Epithel Cells (Auto) 0-5 (0-5) /lpf Urine Bacteria (Auto) Negative (Negative) COVID-19 Eval Order SARS-CoV-2, RNA, NAAT (NEGATIVE) Blood Type Antibody Screen Administered Medications Discontinued Medications Aspirin (Aspirin 81 Mg Chew) 162 mg PO NOW STA Stop: 03/04/20 19:35 Last Admin: 03/04/20 20:05 Dose: 162 mg Documented by: [id number] Discharge Plan Visit Data Chief Complaint: Lethargic ED Provider: Kennedy Finch Discharge Problem: Hypoxia, Lethargy, Non-ST elevation [place] (NSTEMI) Patient Disposition: Being Evaluated by Hospitalist Forms Stand Alone Forms: [facility] Prescriptions Prescriptions: No Action carbidopa-levodopa 25-100 mg tablet 1 tab PO TIDM RF: 0 cyanocobalamin (vitamin B-12) [Vitamin B-12] 1,000 mcg Tablet 1,000 mcg PO QAM RF: 0 levothyroxine 125 mcg tablet 125 mcg PO QAM RF: 0 terazosin 5 mg capsule 5 mg PO HS RF: 0 venlafaxine 75 mg capsule,extended release 24hr 75 mg PO QAM RF: 0 cholecalciferol (vitamin D3) [Vitamin D3] 125 mcg (5,000 unit) Tablet 125 mcg PO DAILY RF: 0 isosorbide mononitrate 30 mg tablet extended release 24 hr 30 mg PO DAILY RF: 0 pregabalin 100 mg capsule 100 mg PO BID RF: 0 atorvastatin 80 mg tablet 80 mg PO QAM RF: 0 aspirin 81 mg tablet,delayed release (DR/EC) 162 mg PO DAILY RF: 0 calcium acetate(phosphat bind) 667 mg capsule See Rx Instructions .ROUTE .COMPLEX RF: 0 meclizine 25 mg Tablet 25 mg PO TID PRN (Reason: Dizziness) RF: 0 Referrals Referrals: Bella Power MD [Primary Care Provider] -
[2020-03-04 18:16] LABS: Basophils # (auto) 0.02 K/uL (0-0.2); Basophils % (auto) 0.2 %; Eosinophils # (auto) 0.74 K/uL (0-0.5); Eosinophils % (auto) 6.1 %; Hematocrit (blood only) 27.2 % (37-47); Hemoglobin 8.4 g/dL (12.0-16.0); Immature Granulocytes # (auto) 0.07 K/uL (0.00-0.02); Immature Granulocytes % (auto) 0.6 %; Lymphocytes # (auto) 1.32 K/uL (1.2-3.4); Lymphocytes % (auto) 10.9 %; Mean Corpuscular Hemoglobin 29.2 pg (25-34); Mean Corpuscular Hgb Conc 30.9 g/dL (32-36); Mean Corpuscular Volume 94.4 fL (80-100); Mean Platelet Volume 10.1 fL (7.4-10.4); Monocytes # (auto) 1.09 K/uL (0.11-0.59); Neutrophils # (auto) 8.89 K/uL (1.4-6.5); Neutrophils % (auto) 73.2 %; Platelet Count 279 K/uL (130-400); RDW Coefficient of Variation 19.1 % (11.5-14.5); RDW Standard Deviation 66.2 fL (36.4-46.3); Red Blood Count 2.88 M/uL (4.2-5.4); White Blood Count 12.13 K/uL (4.8-10.8)
[2020-03-04 18:25] LABS: Base Excess VBG 7.9 mEq/L; HCO3 VBG 34 mmol/L; PCO2 VBG 53 mmHg (38-50); PO2 VBG 24 mmHg; pH VBG 7.42 (7.36-7.41)
[2020-03-04 18:27] LABS: INR 1.1 (0.9-1.1); Prothrombin Time 11.1 Seconds (9.0-12.0)
[2020-03-04 18:28] LABS: Oxygen Saturation VBG < 60.0 %
[2020-03-04 18:34] LABS: Alanine Aminotransferase 10 U/L (12-78); Albumin Level 2.9 gm/dl (3.4-5.0); Aspartate Aminotransferase 21 U/L (15-37); BUN Creatinine Ratio 5.4 (10-20); Blood Urea Nitrogen 13 mg/dl (7-18); Calcium 8.2 mg/dl (8.5-10.1); Carbon Dioxide 34 mmol/L (21-32); Chloride 98 mmol/L (98-107); Est GFR (African American) 21.8; Est GFR (Non-African American) 18.8; Glucose 100 mg/dl (70-99); Magnesium 1.9 mg/dl (1.8-2.4); Potassium 3.2 mmol/L (3.5-5.1); Sodium 137 mmol/L (136-145)
[2020-03-04 18:53] LABS: Appearance Urine Cloudy (Clear); Bacteria Urine Automated Negative (Negative); Bilirubin Urine Negative (Negative); Blood Urine 3+ (Negative); Cast Urine Automated 0 /lpf (0-5); Color Urine Yellow; Epithelial Cell Urine Auto 0-5 /lpf (0-5); Glucose Urine UA Negative (Negative); Ketones Urine Negative (Negative); Leukocyte Esterase Urine Trace (Negative); Nitrite Urine Negative (Negative); RBC Urine Automated >30 /hpf (0-4); Specific Gravity Urine 1.011 (1.000-1.030); Urobilinogen Urine Negative (Negative); pH Urine >= 9.0 (4.5-7.5)
[2020-03-04 19:01] LABS: D Dimer 3240 ug/L FEU (0-500)
[2020-03-04 19:02] LABS: Albumin Globulin Ratio 0.5 (0.9-2); Alkaline Phosphatase 129 U/L (45-117); Bilirubin,Total 0.3 mg/dl (0.2-1); Globulin 5.3 gm/dl (2.5-4.0); Total Protein 8.2 gm/dl (6.4-8.2)
[2020-03-04 19:26] LABS: Protein Urine 3+ (Negative)
[2020-03-04 19:27] LABS: Sulfosalicylic Acid Urine Positive (Negative)
--- NOTE | 2020-03-04 19:31 | XRay Report ---
SINGLE VIEW CHEST CLINICAL HISTORY: Generalized weakness. FINDINGS: An AP, portable, upright chest radiograph is compared to study dated 02/10/2020. The examin ation is degraded by portable technique and patient rotation. A left subclavian central venous cathet er and is unchanged in position. A right-sided pigtail catheter has been removed from previous. The h eart is enlarged. There is prominence of the pulmonary vasculature. Hazy interstitial airspace opacit ies are seen throughout both lungs. Small pleural effusions are noted with bibasilar consolidation. N o pneumothorax is seen. The skeletal structures are osteopenic. The bony thorax is grossly intact. De generative change is seen in the shoulders and thoracic spine. IMPRESSION: 1. Cardiomegaly with prominence of the pulmonary vasculature. Correlate clinically for evidence of co ngestive failure. 2. Hazy interstitial airspace opacities are seen throughout both lungs. This could represent pulmonar y edema and/or an infectious/inflammatory pneumonitis. Clinical correlation will be essential. 3. Small pleural effusions with bibasilar consolidation. ACT 112: Negative or not required by law. Electronically signed by: Deep Smith M.D. 03/04/2020 7:30 PM
[2020-03-04] MEDS ORDERED: ASPIRIN 81 MG CHEW PO STA (19:34)
[2020-03-04] MEDS ORDERED: FUROSEMIDE 40 MG/4 ML VIAL IV STA (20:46)
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
[2020-03-05] MEDS ORDERED: ACETAMINOPHEN 325 MG TAB PO PRN (02:37)
[2020-03-05] MEDS ORDERED: DEXTROSE 50% 50 ML SYRINGE IV PRN (02:37)
[2020-03-05] MEDS ORDERED: CARBOHYDRATES FOR HYPOGLYCEMIA PO PRN (02:37)
[2020-03-05] MEDS ORDERED: MICONAZOLE NITRATE 2% TOP PRN (02:37)
[2020-03-05] MEDS ORDERED: IPRATROPIUM BROMIDE/ALBUTEROL respimat INH INH PRN (02:37)
[2020-03-05] MEDS ORDERED: GLUCOSE 40% GEL 15 GM TUBE PO PRN (02:37)
[2020-03-05] MEDS ORDERED: GLUCAGON FOR INJ 1 MG VIAL SQ PRN (02:37)
[2020-03-05] MEDS ORDERED: GLUCOSE 10 TABS/TUBE PO PRN (02:37)
[2020-03-05] MEDS: HEPARIN SOD 5,000 UNIT/0.5 ML VIAL SQ SCH ×3 (06:11→19:56)
[2020-03-05] MEDS: LEVOTHYROXINE SODIUM 125 MCG TABLET PO SCH (06:11)
[2020-03-05 06:47] LABS: Hematocrit (blood only) 24.8 % (37-47); Hemoglobin 7.6 g/dL (12.0-16.0); Mean Corpuscular Hemoglobin 29.1 pg (25-34); Mean Corpuscular Hgb Conc 30.6 g/dL (32-36); Mean Platelet Volume 10.8 fL (7.4-10.4); Platelet Count 244 K/uL (130-400); RDW Coefficient of Variation 18.9 % (11.5-14.5); RDW Standard Deviation 66.3 fL (36.4-46.3); Red Blood Count 2.61 M/uL (4.2-5.4)
[2020-03-05] MEDS ORDERED: ALBUTEROL HFA 8 GM INHALER INH PRN (07:00)
[2020-03-05] MEDS ORDERED: IPRATROPIUM BROMIDE HFA INHALER INH PRN (07:00)
[2020-03-05 07:26] LABS: BUN Creatinine Ratio 5.7 (10-20); Calcium 7.8 mg/dl (8.5-10.1); Creatinine Clr Calc Pharmacy 16.7 ml/min; Est GFR (African American) 15.3; Est GFR (Non-African American) 13.2; Potassium 3.5 mmol/L (3.5-5.1)
[2020-03-05 07:52] LABS: Troponin I 1.28 ng/ml (0-0.045)
[2020-03-05] MEDS ORDERED: HEPARIN SOD (PORCINE) 1000 UNIT/ML 10 ML VIAL IV ONE (08:03)
[2020-03-05] MEDS ORDERED: SODIUM CHLORIDE 0.9% 1000ML 1,000 ML IV PRN (08:03)
--- NOTE | 2020-03-05 08:07 | XRay Report ---
XR chest 1V portable HISTORY: 74 years-old Female f/u follow-up study in a patient with pulmonary edema and pleural effus ions COMPARISON: Chest radiograph 02/03/2020 TECHNIQUE: Portable AP view of the chest FINDINGS: Cardiac silhouette is moderately enlarged. Pulmonary vascular congestion with reticular opacities red emonstrated. Left subclavian dual-lumen hemodialysis catheter is redemonstrated with distal tip overl antione the inferior aspect of the right atrium near the inferior cavoatrial junction. There is no pneum othorax. Small pleural effusions with mild bibasilar consolidation. Degenerative changes of the shoul ders and spine. IMPRESSION: 1. Cardiomegaly with pulmonary edema. 2. Small pleural effusions with mild bibasilar opacities suggestive of probable atelectasis. ACT 112: Negative or not required by law. The above report was generated using voice recognition software. It may contain grammatical, syntax o r spelling errors. Electronically signed by: Arnoldo Stiles M.D. 03/05/2020 8:06 AM
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
[2020-03-05] MEDS ORDERED: EPOETIN ALFA 20,000 UNITS/ML VIAL IV SCH (08:30)
[2020-03-05 08:48] LABS: Iron 50 mcg/dl (35-150); Transferrin 208 mg/dl (200-360); Transferrin Percent Saturation 17 % (15-50)
[2020-03-05] MEDS: INSULIN ASPART 100 UNITS/ML 3 ML PEN SC SCH ×4 (09:28→20:53)
--- NOTE | 2020-03-05 10:10 | Ultrasound Report ---
BILATERAL LOWER EXTREMITY VENOUS DOPPLER HISTORY: Elevated D-Dimer COMPARISON STUDY: Duplex venous Doppler study 08/16/2019. FINDINGS: There is normal compressibility, flow, and augmentation within the bilateral lower extremit y deep venous systems. IMPRESSION: No DVT within the right or left lower extremity. ACT 112: Negative or not required by law. Electronically signed by: Arnoldo Stiles M.D. 03/05/2020 10:09 AM
[2020-03-05] MEDS: VENLAFAXINE HCL XR 150 MG CAPXR PO SCH (10:20)
[2020-03-05] MEDS: CARBIDOPA/LEVODOPA 25/100MG TAB PO SCH ×3 (10:20→16:47)
[2020-03-05] MEDS: CYANOCOBALAMIN 500 MCG TABLET (VITAMIN B-12) PO SCH (10:20)
[2020-03-05] MEDS: ASPIRIN 81 MG ECTAB PO SCH (10:21)
[2020-03-05] MEDS: CALCIUM ACETATE 667 MG CAP/TAB PO SCH ×3 (10:21→16:47)
[2020-03-05] MEDS: ADVANCED PROBIOTIC 1250 MG CAPSULE PO SCH (10:21)
[2020-03-05] MEDS: CHOLECALCIFEROL 1,000 UNITS 25 MCG TAB PO SCH (10:21)
[2020-03-05] MEDS: ISOSORBIDE MONO EXTENDED REL 30 MG TABCR PO SCH (10:22)
[2020-03-05] MEDS: ATORVASTATIN 40 MG TAB PO SCH (10:22)
[2020-03-05] MEDS: FLUTICASONE/VILANTEROL 200/25MCG 14 PUFFS/INHALER INH SCH (10:22)
[2020-03-05] MEDS: PREGABALIN 100 MG CAP PO SCH ×2 (10:26→19:56)
[2020-03-05] MEDS ORDERED: IRON SUCROSE 100 MG in SYRINGE 0 ML IV SCH (11:00)
[2020-03-05 12:58] LABS: Hepatitis B Surface Ab Quant < 3.10 mIU/mL (>or=10mIU/mL Immune); Hepatitis B Surface Antibody Non-Immune
[2020-03-05 13:09] LABS: Hepatitis B Surface Antigen Neg (Neg)
--- NOTE | 2020-03-05 13:09 | Electrocardiogram Report ---
Test Reason : Blood Pressure : / mmHG Vent. Rate : 075 BPM Atrial Rate : 075 BPM P-R Int : 164 ms QRS Dur : 148 ms QT Int : 492 ms P-R-T Axes : 057 061 094 degrees QTc Int : 549 ms Sinus rhythm with frequent Premature ventricular complexes Left bundle branch block Abnormal ECG When compared with ECG of 10-FEB-2020 17:51, No significant change was found Confirmed by Jhony Raymond ([id number]) on 03/05/2020 1:09:21 PM Referred By: REFERRED SELF Confirmed By:Josef Raymond
[2020-03-05] MEDS: HEPARIN SOD (PORCINE) 1000 UNIT/ML 10 ML VIAL IV SCH ×2 (14:10→15:28)
[2020-03-05] MEDS: MELATONIN 3 MG TAB PO SCH (19:56)
[2020-03-05] MEDS: TERAZOSIN HCL 5 MG CAP PO SCH (19:56)
[2020-03-06] MEDS: LEVOTHYROXINE SODIUM 125 MCG TABLET PO SCH (05:00)
[2020-03-06] MEDS: HEPARIN SOD 5,000 UNIT/0.5 ML VIAL SQ SCH ×3 (05:00→23:22)
[2020-03-06 06:59] LABS: Hematocrit (blood only) 28.6 % (37-47); Hemoglobin 8.6 g/dL (12.0-16.0); Mean Corpuscular Hemoglobin 28.9 pg (25-34); Mean Corpuscular Hgb Conc 30.1 g/dL (32-36); Mean Platelet Volume 10.7 fL (7.4-10.4); Platelet Count 255 K/uL (130-400); RDW Coefficient of Variation 18.5 % (11.5-14.5); RDW Standard Deviation 65.2 fL (36.4-46.3); Red Blood Count 2.98 M/uL (4.2-5.4); White Blood Count 7.99 K/uL (4.8-10.8)
[2020-03-06 07:25] LABS: BUN Creatinine Ratio 5.4 (10-20); Calcium 8.2 mg/dl (8.5-10.1); Creatinine Clr Calc Pharmacy 15.9 ml/min; Est GFR (African American) 15.3; Est GFR (Non-African American) 13.2; Magnesium 2.1 mg/dl (1.8-2.4); Potassium 3.7 mmol/L (3.5-5.1)
[2020-03-06 07:26] LABS: Phosphorus 4.4 mg/dl (2.5-4.9)
[2020-03-06 07:40] LABS: Estimated Average Glucose 117 mg/dl; Hemoglobin A1C 5.7 % (4.5-5.6)
[2020-03-06] MEDS ORDERED: EPOETIN ALFA 20,000 UNITS/ML VIAL IV ONE (07:40)
[2020-03-06] MEDS ORDERED: SODIUM CHLORIDE 0.9% 1000ML 1,000 ML IV PRN (07:40)
[2020-03-06] MEDS ORDERED: HEPARIN SOD (PORCINE) 1000 UNIT/ML 10 ML VIAL IV ONE (07:40)
[2020-03-06] MEDS ORDERED: MIDODRINE HCL 2.5 MG TAB PO PRN (07:42)
[2020-03-06] MEDS ORDERED: IRON SUCROSE 100 MG in SYRINGE 0 ML IV ONE (08:00)
[2020-03-06] MEDS: INSULIN ASPART 100 UNITS/ML 3 ML PEN SC SCH ×4 (08:29→23:23)
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
--- NOTE | 2020-03-06 10:40 | Nephrology Progress Note ---
Date of Service March 06, 2020 Assessment & Plan (1) ESRD (end stage renal disease) on dialysis: pt w/ chronic fluid overload > missed HD on 03/02; completed HD 03/04 as OP -routine OP HD today on Xmas schedule > tolerated 1.7 L off, UF limited by kesha wei -next HD 03/08 per Xmas schedule or as clinical needs dictate -Daily BMP while in-house (2) Acute hypoxemic respiratory failure: from volume overload; at baseline wears 02 hs only per her report though I note H&P says differently and that she wears no oxygen ever unless sats drop -cont fluid limit 1.5 L daily (3) Anemia of chronic disease: max dose epo w/ HD iron store labs ordered and will dose iron as indicated>> 17%; needs iron load which I will order with dialysis Admission and Anticipated Discharge Date Admission Date: March 04, 2020 Subjective deferred ROS d/t pt hard of hearing and provider not rounding in person today d/t covid mitigation /pending covid test. CHART REVIEW ONLY. tolerated 2L UF yesterday Review of Systems Review of Systems: Other (as above) Physical Exam Constitutional: physical exam deferred Results & Data [facility]) Vital Signs (Past 12 Hours) Vital Signs Temp Pulse Pulse Pulse Resp BP BP 03/06/20 10:05 66 95/60 L 03/06/20 09:40 64 98/65 L 03/06/20 09:23 36.6 C 51 L 03/06/20 07:51 36.7 C 57 L 19 115/55 L 03/06/20 03:47 36.5 C 64 19 104/52 L 03/06/20 00:47 73 03/06/20 00:00 37.0 C 75 19 97/62 L Pulse Ox 03/06/20 10:05 03/06/20 09:40 03/06/20 09:23 03/06/20 07:51 97 03/06/20 03:47 95 03/06/20 00:47 03/06/20 00:00 98 Laboratory Results 03/06/20 06:26 03/06/20 06:26
[2020-03-06] MEDS: HEPARIN SOD (PORCINE) 1000 UNIT/ML 10 ML VIAL IV SCH ×2 (10:44→12:13)
[2020-03-06] MEDS: CALCIUM ACETATE 667 MG CAP/TAB PO SCH ×3 (13:50→17:39)
[2020-03-06] MEDS: ATORVASTATIN 40 MG TAB PO SCH (13:50)
[2020-03-06] MEDS: FLUTICASONE/VILANTEROL 200/25MCG 14 PUFFS/INHALER INH SCH (13:50)
[2020-03-06] MEDS: CHOLECALCIFEROL 1,000 UNITS 25 MCG TAB PO SCH (13:51)
[2020-03-06] MEDS: ISOSORBIDE MONO EXTENDED REL 30 MG TABCR PO SCH (13:51)
[2020-03-06] MEDS: VENLAFAXINE HCL XR 150 MG CAPXR PO SCH (13:51)
[2020-03-06] MEDS: ASPIRIN 81 MG ECTAB PO SCH (13:52)
[2020-03-06] MEDS: CYANOCOBALAMIN 500 MCG TABLET (VITAMIN B-12) PO SCH (13:52)
[2020-03-06] MEDS: ADVANCED PROBIOTIC 1250 MG CAPSULE PO SCH (13:52)
[2020-03-06] MEDS: CARBIDOPA/LEVODOPA 25/100MG TAB PO SCH ×3 (13:53→17:40)
[2020-03-06] MEDS: PREGABALIN 100 MG CAP PO SCH ×2 (14:40→23:18)
--- NOTE | 2020-03-06 16:11 | XRay Report ---
XR chest 1V portable HISTORY: 74 years-old Female follow up follow up study in a patient with pulmonary opacities COMPARISON: Chest radiograph 03/05/2020 TECHNIQUE: Portable AP view of the chest FINDINGS: Cardiac silhouette is enlarged, unchanged. Calcified plaque the thoracic aorta. Mildly decreased pulm onary edema. Trace pleural effusions have also decreased in size from comparison. Improved aeration o f the lung bases. No pneumothorax. Degenerative changes of the shoulders and spine. Unchanged positio jagjit of the left subclavian dual-lumen hemodialysis catheter. IMPRESSION: 1. Cardiomegaly with mildly improved pulmonary edema. 2. Trace pleural effusions with improved aeration of the lung bases. ACT 112: Negative or not required by law. The above report was generated using voice recognition software. It may contain grammatical, syntax o r spelling errors. Electronically signed by: Arnoldo Stiles M.D. 03/06/2020 4:10 PM
[2020-03-06] MEDS: MELATONIN 3 MG TAB PO SCH (23:18)
[2020-03-06] MEDS: TERAZOSIN HCL 5 MG CAP PO SCH (23:22)
[2020-03-07] MEDS ORDERED: ALBUMIN 25% 12.5 GM/50 ML VIAL IV ONE (00:14)
[2020-03-07] MEDS ORDERED: MIDODRINE HCL 2.5 MG TAB PO STA (00:16)
[2020-03-07] MEDS: HEPARIN SOD 5,000 UNIT/0.5 ML VIAL SQ SCH ×3 (05:15→22:21)
[2020-03-07] MEDS: LEVOTHYROXINE SODIUM 125 MCG TABLET PO SCH (06:10)
[2020-03-07] MEDS: INSULIN ASPART 100 UNITS/ML 3 ML PEN SC SCH ×4 (07:50→22:46)
[2020-03-07] MEDS: CALCIUM ACETATE 667 MG CAP/TAB PO SCH ×3 (07:53→17:20)
[2020-03-07] MEDS: FLUTICASONE/VILANTEROL 200/25MCG 14 PUFFS/INHALER INH SCH (07:53)
[2020-03-07] MEDS: CARBIDOPA/LEVODOPA 25/100MG TAB PO SCH ×3 (07:53→17:20)
[2020-03-07] MEDS: VENLAFAXINE HCL XR 150 MG CAPXR PO SCH (07:54)
[2020-03-07] MEDS: ATORVASTATIN 40 MG TAB PO SCH (07:54)
[2020-03-07] MEDS: ASPIRIN 81 MG ECTAB PO SCH (07:54)
[2020-03-07] MEDS: ADVANCED PROBIOTIC 1250 MG CAPSULE PO SCH (07:54)
[2020-03-07] MEDS: CYANOCOBALAMIN 500 MCG TABLET (VITAMIN B-12) PO SCH (07:55)
[2020-03-07] MEDS: CHOLECALCIFEROL 1,000 UNITS 25 MCG TAB PO SCH (07:55)
[2020-03-07] MEDS: PREGABALIN 100 MG CAP PO SCH ×2 (08:02→22:20)
[2020-03-07 08:12] LABS: Hematocrit (blood only) 30.6 % (37-47); Hemoglobin 9.3 g/dL (12.0-16.0); Mean Corpuscular Hemoglobin 29.4 pg (25-34); Mean Corpuscular Hgb Conc 30.4 g/dL (32-36); Mean Corpuscular Volume 96.8 fL (80-100); Mean Platelet Volume 10.5 fL (7.4-10.4); Nucleated RBC # (auto) 0.05 K/uL (0-0); Nucleated RBC % (auto) 0.4 %; Platelet Count 278 K/uL (130-400); RDW Coefficient of Variation 18.7 % (11.5-14.5); RDW Standard Deviation 65.5 fL (36.4-46.3); Red Blood Count 3.16 M/uL (4.2-5.4); White Blood Count 12.33 K/uL (4.8-10.8)
[2020-03-07 08:49] LABS: BUN Creatinine Ratio 4.4 (10-20); Calcium 8.9 mg/dl (8.5-10.1); Creatinine Clr Calc Pharmacy 14.6 ml/min; Est GFR (Non-African American) 12.1; Potassium 3.4 mmol/L (3.5-5.1)
[2020-03-07] MEDS ORDERED: POTASSIUM CHLORIDE CRTAB 20 MEQ TABCR PO STA (10:38)
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
[2020-03-07] MEDS: ISOSORBIDE MONO EXTENDED REL 30 MG TABCR PO SCH (14:06)
--- NOTE | 2020-03-07 15:32 | Nephrology Progress Note ---
Date of Service March 07, 2020 Assessment & Plan (1) ESRD (end stage renal disease) on dialysis: pt w/ chronic fluid overload > missed HD on 03/02; completed HD 03/04 as OP -routine OP HD on 03/06 on Xmas schedule > tolerated 1.7 L off, UF limited by abd cramps -next HD 03/08 per Xmas schedule or as clinical needs dictate -Daily BMP while in-house (2) Acute hypoxemic respiratory failure: from volume overload; at baseline wears 02 hs only per her report though I note H&P says differently and that she wears no oxygen ever unless sats drop -cont fluid limit 1.5 L daily (3) Anemia of chronic disease: max dose epo w/ HD, Iron store labs ordered and will dose iron as indicated Admission and Anticipated Discharge Date Admission Date: March 04, 2020 Subjective Comfortable on 2 litr with saturation of 96%. no sob no cough Review of Systems Review of Systems: All systems reviewed & are unremarkable except as noted in HPI & below Physical Exam Physical Exam: General- Comfortable Head- NC, atraumatic Eyes- PERRL, EOMI, ENT- decrease hearing function Neck- supple, no JVD Lungs- overall sounds clear to auscultation, did not appreciate any sign. wheezing or crackles Heart- regular rhythm; no murmur Abdomen- normal bowel sounds, soft, nontender Extremities- no calf tenderness Neuro- alert, oriented Skin- warm & dry Results & Data ([facility]) Vital Signs (Past 12 Hours) Vital Signs Temp Pulse Pulse Resp BP Pulse Ox 03/07/20 11:24 36.6 C 66 18 128/84 96 03/07/20 08:31 36.5 C 75 18 111/70 97 03/07/20 03:47 36.9 C 66 18 120/65 96 Laboratory Results 03/07/20 07:13 03/07/20 07:13
[2020-03-07 16:29] LABS: Ferritin 586.9 ng/ml (8-388)
[2020-03-07] MEDS: MELATONIN 3 MG TAB PO SCH (22:20)
[2020-03-07] MEDS: TERAZOSIN HCL 5 MG CAP PO SCH (22:21)
[2020-03-08] MEDS: LEVOTHYROXINE SODIUM 125 MCG TABLET PO SCH (05:52)
[2020-03-08] MEDS: HEPARIN SOD 5,000 UNIT/0.5 ML VIAL SQ SCH ×3 (05:52→22:22)
[2020-03-08 06:26] LABS: Hematocrit (blood only) 31.2 % (37-47); Hemoglobin 9.4 g/dL (12.0-16.0); Mean Corpuscular Hgb Conc 30.1 g/dL (32-36); Mean Corpuscular Volume 96.3 fL (80-100); Mean Platelet Volume 10.4 fL (7.4-10.4); Platelet Count 307 K/uL (130-400); RDW Coefficient of Variation 18.8 % (11.5-14.5); RDW Standard Deviation 65.4 fL (36.4-46.3); Red Blood Count 3.24 M/uL (4.2-5.4); White Blood Count 13.42 K/uL (4.8-10.8)
[2020-03-08 07:05] LABS: BUN Creatinine Ratio 5.3 (10-20); Calcium 8.7 mg/dl (8.5-10.1); Creatinine Clr Calc Pharmacy 10.5 ml/min; Est GFR (African American) 9.3; Potassium 3.9 mmol/L (3.5-5.1)
[2020-03-08] MEDS ORDERED: ACETAMINOPHEN 325 MG TAB PO PRN (07:33)
[2020-03-08] MEDS: ASPIRIN 81 MG ECTAB PO SCH (07:47)
[2020-03-08] MEDS: VENLAFAXINE HCL XR 150 MG CAPXR PO SCH (07:47)
[2020-03-08] MEDS: CYANOCOBALAMIN 500 MCG TABLET (VITAMIN B-12) PO SCH (07:47)
[2020-03-08] MEDS: ATORVASTATIN 40 MG TAB PO SCH (07:48)
[2020-03-08] MEDS: CHOLECALCIFEROL 1,000 UNITS 25 MCG TAB PO SCH (07:48)
[2020-03-08] MEDS: CARBIDOPA/LEVODOPA 25/100MG TAB PO SCH ×3 (07:48→17:04)
[2020-03-08] MEDS: ADVANCED PROBIOTIC 1250 MG CAPSULE PO SCH (07:49)
[2020-03-08] MEDS: ISOSORBIDE MONO EXTENDED REL 30 MG TABCR PO SCH (07:49)
[2020-03-08] MEDS: CALCIUM ACETATE 667 MG CAP/TAB PO SCH ×3 (07:49→17:03)
[2020-03-08] MEDS: PREGABALIN 100 MG CAP PO SCH ×2 (07:51→22:21)
[2020-03-08] MEDS: FLUTICASONE/VILANTEROL 200/25MCG 14 PUFFS/INHALER INH SCH (07:54)
[2020-03-08] MEDS: INSULIN ASPART 100 UNITS/ML 3 ML PEN SC SCH ×4 (07:54→22:22)
[2020-03-08] MEDS ORDERED: SODIUM CHLORIDE 0.9% 1000ML 1,000 ML IV PRN (09:49)
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
--- NOTE | 2020-03-08 13:34 | Nephrology Progress Note ---
Date of Service March 08, 2020 Assessment & Plan (1) ESRD (end stage renal disease) on dialysis: pt w/ chronic fluid overload > missed HD on 03/02; completed HD 03/04 as OP -routine OP HD on 03/06 on Xmas schedule > tolerated 1.7 L off, UF limited by abd cramps -He was seen on the HD today, appeared very comfortable without any distress, however blood pressure was in low 80s and her UF goal was decreased, she was given midodrine midway during dialysis. No complaints of abdominal cramps -Plan to give her midodrine 10 mg half an hour before the dialysis next time. (2) Acute hypoxemic respiratory failure: from volume overload; at baseline wears 02 hs only per her report though I note H&P says differently and that she wears no oxygen ever unless sats drop -cont fluid limit 1.5 L daily (3) Anemia of chronic disease: max dose epo w/ HD, Adequate iron stores, T sat of 24 and a ferritin of 587 Admission and Anticipated Discharge Date Admission Date: March 04, 2020 Subjective Looks comfortable on 2 L of oxygen. Other complaints when seen on the dialysis today. Pressure has been soft. UF target lowered. Review of Systems Review of Systems: All systems reviewed & are unremarkable except as noted in HPI & below Physical Exam Physical Exam: General Appearance: no apparent distress, comfortable Head: normocephalic, Atraumatic Eyes: normal inspection, EOMI Neck: supple, Trachea midline Respiratory/Chest: Decreased breath sounds,No b/l basal crackles, Rales Cardiovascular: S1, S2, No murmur Abdomen/GI:Soft, Non tender, Bowel sounds present Extremities/Musculoskelatal:normal inspection, no edema Neurologic/Psych:AAOX3, grossly no focal neurological deficits Skin: normal color, warm Results & Data ([facility]) Vital Signs (Past 12 Hours) Vital Signs Temp Pulse Pulse Resp BP BP Pulse Ox 03/08/20 13:00 67 130/51 L 03/08/20 12:40 69 107/48 L 03/08/20 12:20 75 108/53 L 03/08/20 12:00 73 104/56 L 03/08/20 11:40 76 93/53 L 03/08/20 11:20 65 81/43 L 03/08/20 11:00 64 93/44 L 03/08/20 10:40 78 100/52 L 03/08/20 10:20 72 83/51 L 03/08/20 10:00 78 90/47 L 03/08/20 09:40 73 75/37 L 03/08/20 09:19 37.0 C 59 L 59 L 133/91 03/08/20 08:02 36.5 C 70 18 110/69 96 03/08/20 07:10 59 L 03/08/20 03:24 36.9 C 68 19 115/70 98 Laboratory Results 03/08/20 06:07 03/08/20 06:07
[2020-03-08] MEDS: MELATONIN 3 MG TAB PO SCH (22:21)
[2020-03-08] MEDS: TERAZOSIN HCL 5 MG CAP PO SCH (22:21)
[2020-03-09] MEDS: HEPARIN SOD 5,000 UNIT/0.5 ML VIAL SQ SCH ×4 (06:06→21:23)
[2020-03-09] MEDS: LEVOTHYROXINE SODIUM 125 MCG TABLET PO SCH (06:06)
[2020-03-09] MEDS: INSULIN ASPART 100 UNITS/ML 3 ML PEN SC SCH ×4 (08:06→21:01)
[2020-03-09] MEDS: ADVANCED PROBIOTIC 1250 MG CAPSULE PO SCH (08:08)
[2020-03-09] MEDS: CALCIUM ACETATE 667 MG CAP/TAB PO SCH ×3 (08:09→17:19)
[2020-03-09] MEDS: VENLAFAXINE HCL XR 150 MG CAPXR PO SCH (08:09)
[2020-03-09] MEDS: ATORVASTATIN 40 MG TAB PO SCH (08:09)
[2020-03-09 08:10] LABS: Basophils # (auto) 0.03 K/uL (0-0.2); Basophils % (auto) 0.2 %; Eosinophils # (auto) 1.24 K/uL (0-0.5); Eosinophils % (auto) 9.9 %; Hematocrit (blood only) 30.3 % (37-47); Hemoglobin 9.1 g/dL (12.0-16.0); Immature Granulocytes # (auto) 0.32 K/uL (0.00-0.02); Immature Granulocytes % (auto) 2.6 %; Lymphocytes # (auto) 1.65 K/uL (1.2-3.4); Lymphocytes % (auto) 13.2 %; Mean Corpuscular Hemoglobin 28.8 pg (25-34); Mean Corpuscular Volume 95.9 fL (80-100); Mean Platelet Volume 10.2 fL (7.4-10.4); Monocytes # (auto) 1.47 K/uL (0.11-0.59); Monocytes % (auto) 11.7 %; Neutrophils # (auto) 7.82 K/uL (1.4-6.5); Neutrophils % (auto) 62.4 %; Nucleated RBC # (auto) 0.11 K/uL (0-0); Nucleated RBC % (auto) 0.9 %; Platelet Count 318 K/uL (130-400); RDW Coefficient of Variation 18.4 % (11.5-14.5); RDW Standard Deviation 64.2 fL (36.4-46.3); Red Blood Count 3.16 M/uL (4.2-5.4); White Blood Count 12.53 K/uL (4.8-10.8)
[2020-03-09] MEDS: CARBIDOPA/LEVODOPA 25/100MG TAB PO SCH ×3 (08:10→17:19)
[2020-03-09] MEDS: ASPIRIN 81 MG ECTAB PO SCH (08:10)
[2020-03-09] MEDS: ISOSORBIDE MONO EXTENDED REL 30 MG TABCR PO SCH (08:11)
[2020-03-09] MEDS: CHOLECALCIFEROL 1,000 UNITS 25 MCG TAB PO SCH (08:11)
[2020-03-09] MEDS: CYANOCOBALAMIN 500 MCG TABLET (VITAMIN B-12) PO SCH (08:12)
[2020-03-09] MEDS: FLUTICASONE/VILANTEROL 200/25MCG 14 PUFFS/INHALER INH SCH (08:12)
[2020-03-09] MEDS: PREGABALIN 100 MG CAP PO SCH ×2 (08:12→21:20)
[2020-03-09 08:43] LABS: Alanine Aminotransferase < 6 U/L (12-78); Albumin Level 2.8 gm/dl (3.4-5.0); Aspartate Aminotransferase 12 U/L (15-37); Blood Urea Nitrogen 18 mg/dl (7-18); Calcium 8.9 mg/dl (8.5-10.1); Carbon Dioxide 27 mmol/L (21-32); Chloride 101 mmol/L (98-107); Creatinine Clr Calc Pharmacy 14.5 ml/min; Est GFR (African American) 13.6; Est GFR (Non-African American) 11.8; Glucose 94 mg/dl (70-99); Potassium 3.7 mmol/L (3.5-5.1); Sodium 136 mmol/L (136-145)
[2020-03-09 08:46] LABS: Albumin Globulin Ratio 0.6 (0.9-2); Alkaline Phosphatase 121 U/L (45-117); Bilirubin,Total 0.3 mg/dl (0.2-1); Globulin 4.8 gm/dl (2.5-4.0); Total Protein 7.6 gm/dl (6.4-8.2)
--- NOTE | 2020-03-09 10:48 | Nephrology Progress Note ---
Date of Service March 09, 2020 Assessment & Plan (1) ESRD (end stage renal disease) on dialysis: pt w/ chronic fluid overload > missed HD on 03/02; completed HD 03/04 as OP -routine OP HD on 03/06 on Xmas schedule > tolerated 1.7 L off, UF limited by abd cramps> noticed to have a symptomatic hypotension on dialysis yesterday UF goal was reduced to 500. -Plan to give her midodrine 10 mg half an hour before the dialysis next time which will be on Friday. -To be discharged on Friday postdialysis (2) Acute hypoxemic respiratory failure: from volume overload; at baseline wears 02 hs only per her report though I note H&P says differently and that she wears no oxygen ever unless sats drop -cont fluid limit 1.5 L daily (3) Anemia of chronic disease: max dose epo w/ HD, Adequate iron stores, T sat of 24 and a ferritin of 587 hemoglobin improving Admission and Anticipated Discharge Date Admission Date: March 04, 2020 Subjective Looks comfortable on 2 L, no other complaints Review of Systems Review of Systems: All systems reviewed & are unremarkable except as noted in HPI & below Physical Exam Physical Exam: General Appearance: no apparent distress, comfortable Head: normocephalic, Atraumatic Eyes: normal inspection, EOMI Neck: supple, Trachea midline Respiratory/Chest: Decreased breath sounds,No b/l basal crackles, Rales Cardiovascular: S1, S2, No murmur Abdomen/GI:Soft, Non tender, Bowel sounds present Extremities/Musculoskelatal:normal inspection, no edema Neurologic/Psych:AAOX3, grossly no focal neurological deficits Skin: normal color, warm Results & Data ([facility]) Vital Signs (Past 12 Hours) Vital Signs Temp Pulse Pulse Resp BP Pulse Ox 03/09/20 08:14 36.6 C 59 L 18 107/64 95 03/09/20 07:26 66 20 97 03/09/20 03:47 36.7 C 70 19 107/66 95 03/09/20 03:40 66 20 95 03/09/20 00:00 36.8 C 68 19 108/64 94 03/08/20 23:10 69 18 92 03/08/20 23:00 65 Laboratory Results 03/09/20 07:49 03/09/20 07:49
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
[2020-03-09] MEDS: MELATONIN 3 MG TAB PO SCH (21:14)
[2020-03-09] MEDS: TERAZOSIN HCL 5 MG CAP PO SCH (21:14)
[2020-03-10] MEDS: LEVOTHYROXINE SODIUM 125 MCG TABLET PO SCH (05:30)
[2020-03-10] MEDS: HEPARIN SOD 5,000 UNIT/0.5 ML VIAL SQ SCH ×4 (05:30→21:07)
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
[2020-03-10] MEDS: ISOSORBIDE MONO EXTENDED REL 30 MG TABCR PO SCH (09:16)
[2020-03-10] MEDS: CALCIUM ACETATE 667 MG CAP/TAB PO SCH ×3 (09:17→16:59)
[2020-03-10] MEDS: VENLAFAXINE HCL XR 150 MG CAPXR PO SCH (09:17)
[2020-03-10] MEDS: ADVANCED PROBIOTIC 1250 MG CAPSULE PO SCH (09:17)
[2020-03-10] MEDS: CYANOCOBALAMIN 500 MCG TABLET (VITAMIN B-12) PO SCH (09:17)
[2020-03-10] MEDS: CARBIDOPA/LEVODOPA 25/100MG TAB PO SCH ×3 (09:17→16:59)
[2020-03-10] MEDS: ATORVASTATIN 40 MG TAB PO SCH (09:17)
[2020-03-10] MEDS: ASPIRIN 81 MG ECTAB PO SCH (09:18)
[2020-03-10] MEDS: FLUTICASONE/VILANTEROL 200/25MCG 14 PUFFS/INHALER INH SCH (09:18)
[2020-03-10] MEDS: CHOLECALCIFEROL 1,000 UNITS 25 MCG TAB PO SCH (09:18)
[2020-03-10] MEDS: INSULIN ASPART 100 UNITS/ML 3 ML PEN SC SCH ×5 (09:21→22:00)
[2020-03-10] MEDS: PREGABALIN 100 MG CAP PO SCH ×2 (09:29→21:25)
--- NOTE | 2020-03-10 12:48 | Nephrology Progress Note ---
Date of Service March 10, 2020 Assessment & Plan (1) ESRD (end stage renal disease) on dialysis: pt w/ chronic fluid overload > missed HD on 03/02; completed HD 03/04 as OP -routine OP HD on 03/06 on Xmas schedule > tolerated 1.7 L off, UF limited by abd cramps> noticed to have a symptomatic hypotension on dialysis yesterday UF goal was reduced to 500. -Plan to give her midodrine 10 mg half an hour before the dialysis next time which will be on Friday. -To be discharged on Friday postdialysis (2) Acute hypoxemic respiratory failure: from volume overload; at baseline wears 02 hs only per her report though I note H&P says differently and that she wears no oxygen ever unless sats drop -cont fluid limit 1.5 L daily (3) Anemia of chronic disease: max dose epo w/ HD, Adequate iron stores, T sat of 24 and a ferritin of 587 hemoglobin improving Admission and Anticipated Discharge Date Admission Date: March 04, 2020 Subjective Looks comfortable on 2 L, no other complaints Review of Systems Review of Systems: All systems reviewed & are unremarkable except as noted in HPI & below Physical Exam Physical Exam: General Appearance: no apparent distress, comfortable Head: normocephalic, Atraumatic Eyes: normal inspection, EOMI Neck: supple, Trachea midline Respiratory/Chest: Decreased breath sounds,No b/l basal crackles, Rales Cardiovascular: S1, S2, No murmur Abdomen/GI:Soft, Non tender, Bowel sounds present Extremities/Musculoskelatal:normal inspection, no edema Neurologic/Psych:AAOX3, grossly no focal neurological deficits Skin: normal color, warm Results & Data ([facility]) Vital Signs (Past 12 Hours) Vital Signs Temp Pulse Pulse Resp BP Pulse Ox 03/10/20 07:51 37.1 C 61 18 102/57 L 94 03/10/20 07:41 92 03/10/20 05:51 93 03/10/20 05:49 87 L 03/10/20 04:36 53 L 20 98 03/10/20 04:19 57 L 105/64 95 Laboratory Results 03/09/20 07:49 03/09/20 07:49
[2020-03-10] MEDS: TERAZOSIN HCL 5 MG CAP PO SCH (21:25)
[2020-03-10] MEDS: MELATONIN 3 MG TAB PO SCH (21:25)
[2020-03-11] MEDS: HEPARIN SOD 5,000 UNIT/0.5 ML VIAL SQ SCH ×2 (06:19→15:14)
[2020-03-11] MEDS: LEVOTHYROXINE SODIUM 125 MCG TABLET PO SCH (06:19)
[2020-03-11] MEDS ORDERED: HEPARIN SOD (PORCINE) 1000 UNIT/ML 10 ML VIAL IV SCH (07:00)
[2020-03-11] MEDS ORDERED: SODIUM CHLORIDE 0.9% 1000ML 1,000 ML IV PRN (07:00)
[2020-03-11] MEDS: CALCIUM ACETATE 667 MG CAP/TAB PO SCH ×2 (08:21→12:00)
[2020-03-11] MEDS: CARBIDOPA/LEVODOPA 25/100MG TAB PO SCH ×2 (08:21→12:00)
[2020-03-11] MEDS: CHOLECALCIFEROL 1,000 UNITS 25 MCG TAB PO SCH (08:21)
[2020-03-11] MEDS: PREGABALIN 100 MG CAP PO SCH (08:21)
[2020-03-11] MEDS: VENLAFAXINE HCL XR 150 MG CAPXR PO SCH (08:21)
[2020-03-11] MEDS: CYANOCOBALAMIN 500 MCG TABLET (VITAMIN B-12) PO SCH (08:21)
[2020-03-11] MEDS: ATORVASTATIN 40 MG TAB PO SCH (08:22)
[2020-03-11] MEDS: ISOSORBIDE MONO EXTENDED REL 30 MG TABCR PO SCH (08:22)
[2020-03-11] MEDS: ADVANCED PROBIOTIC 1250 MG CAPSULE PO SCH (08:22)
[2020-03-11] MEDS: FLUTICASONE/VILANTEROL 200/25MCG 14 PUFFS/INHALER INH SCH (08:24)
[2020-03-11] MEDS: ASPIRIN 81 MG ECTAB PO SCH (08:40)
[2020-03-11] MEDS: INSULIN ASPART 100 UNITS/ML 3 ML PEN SC SCH (08:41)
[2020-03-11] MEDS ORDERED: NYSTATIN POWDER 15GM BTL EXT PRN (10:11)
--- NOTE | 2020-03-11 12:34 | Nephrology Progress Note ---
Date of Service March 11, 2020 Assessment & Plan (1) ESRD (end stage renal disease) on dialysis: pt w/ chronic fluid overload > missed HD on 03/02; completed HD 03/04 as OP -routine OP HD on 03/06 on Xmas schedule > tolerated 1.7 L off, UF limited by abd cramps> noticed to have a symptomatic hypotension on dialysis yesterday UF goal was reduced to 500. -For dialysis today with 1.5 L UF target -To be discharged on Friday postdialysis if stable (2) Acute hypoxemic respiratory failure: from volume overload; at baseline wears 02 hs only per her report though I note H&P says differently and that she wears no oxygen ever unless sats drop -cont fluid limit 1.5 L daily (3) Anemia of chronic disease: max dose epo w/ HD, Adequate iron stores, T sat of 24 and a ferritin of 587 hemoglobin improving Admission and Anticipated Discharge Date Admission Date: March 04, 2020 Subjective Looks comfortable on 2 L, no other complaints Review of Systems Review of Systems: All systems reviewed & are unremarkable except as noted in HPI & below Physical Exam 2 Physical Exam: General Appearance: no apparent distress, comfortable Head: normocephalic, Atraumatic Eyes: normal inspection, EOMI Neck: supple, Trachea midline Respiratory/Chest: Decreased breath sounds,No b/l basal crackles, Rales Cardiovascular: S1, S2, No murmur Abdomen/GI:Soft, Non tender, Bowel sounds present Extremities/Musculoskelatal:normal inspection, no edema Neurologic/Psych:AAOX3, grossly no focal neurological deficits Skin: normal color, warm Results & Data ([facility]) Vital Signs (Past 12 Hours) Vital Signs Temp Pulse Pulse Pulse Resp BP BP 03/11/20 12:20 59 L 108/63 03/11/20 12:00 69 105/48 L 03/11/20 11:40 65 104/48 L 03/11/20 11:20 64 107/60 03/11/20 11:00 62 102/65 03/11/20 10:40 59 L 116/57 L 03/11/20 10:20 58 L 118/66 03/11/20 10:15 36.4 C L 59 L 59 L 118/66 03/11/20 07:41 36.5 C 56 L 20 130/77 03/11/20 06:22 03/11/20 02:54 14 03/11/20 00:52 36.6 C 55 L 14 109/58 L Pulse Ox 03/11/20 12:20 03/11/20 12:00 03/11/20 11:40 03/11/20 11:20 03/11/20 11:00 03/11/20 10:40 03/11/20 10:20 03/11/20 10:15 03/11/20 07:41 95 03/11/20 06:22 95 03/11/20 02:54 99 03/11/20 00:52 99 Laboratory Results 03/09/20 07:49 03/09/20 07:49
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
== END 2020-03-11 16:47 | disposition home health service (06) | DRG 291 ==
LOC: ED 17:28 → 2S 20:52 → SUATTDRO 20:52 → 2S 03-05 01:42 → 3W 03-09 18:05

== ENCOUNTER 2022-05-23 08:01 | Inpatient (IN) ==
--- NOTE | 2022-05-23 08:29 | Emergency Department Note ---
History of Present Illness General Chief complaint: Illness Stated complaint: ILLNESS, DIZZINESS, AB PAIN, HYPOXIA Time Seen by Provider: 05/23/22 08:10 Source: patient, family ( who I talked to at length), RN notes reviewed and old records reviewed Mode of arrival: ambulatory Limitations: other (The patient is very hard of hearing and forgot her hearing aids) History of Present Illness This patient is a 76-year-old female who is a very complex medical history including end-stage renal disease, comes in after feeling nauseated and generally weak. She has had some epigastric abdominal pain as well and just that she does not feel well. She does wear oxygen at home. Her says that he was transferring her yesterday and she did fall he does not think she injured anything other she has a bruise on her flank bilaterally. She does make urine sparingly and last a urine yesterday. She went to dialysis today and she was sent here she did not miss dialysis before today and had it on Friday. No fever chills or cough. Denies chest pain. No new focal numbness or weakness. Home Medications Medication Instructions Recorded Confirmed Type aspirin 81 mg tablet,delayed 162 mg PO QPM 11/15/21 05/23/22 History release atorvastatin 80 mg tablet 80 mg PO QPM 11/15/21 05/23/22 History calcium acetate(phosphat bind) 667 667 mg PO TID 11/15/21 05/23/22 History mg capsule carbidopa 25 mg-levodopa 100 mg 1 tab PO TIDM 11/15/21 05/23/22 History tablet cholecalciferol (vitamin D3) 125 125 mcg PO QPM 11/15/21 05/23/22 History mcg (5,000 unit) tablet (Vitamin D3) cyanocobalamin (vitamin B-12) 1,000 mcg PO QPM 11/15/21 05/23/22 History 1,000 mcg tablet (Vitamin B-12) docusate sodium 100 mg capsule 100 mg PO UD 11/15/21 05/23/22 History (Colace) isosorbide mononitrate 30 mg 30 mg PO QPM 11/15/21 05/23/22 History tablet,extended release 24 hr levothyroxine 125 mcg tablet 125 mcg PO QAM 11/15/21 05/23/22 History lidocaine-prilocaine 2.5 %-2.5 % 1 applic topical DIRECTED 11/15/21 05/23/22 History topical cream pregabalin 100 mg capsule 100 mg PO BID 11/15/21 05/23/22 History sertraline 100 mg tablet 100 mg PO QPM 11/15/21 05/23/22 History ferric citrate 210 mg iron tablet 210 mg PO TID 04/16/22 05/23/22 History (Auryxia) vitamin B complex-vitamin C-folic 1 tab PO QPM 04/16/22 05/23/22 History acid 0.8 mg tablet (Nanci-Samuel) pantoprazole 20 mg tablet,delayed 20 mg PO BID 05/23/22 05/23/22 History release Allergies Allergy/AdvReac Type Severity Reaction Status Date / Time No Known Allergies Allergy Verified 04/19/22 09:17 Past Med/Surg History Medical History Acute hypoxemic respiratory failure AMS (altered mental status) Aspiration pneumonia HX Chronic diastolic heart failure Depression Diabetes mellitus, type II NO MEDS Dyslipidemia Encephalopathy ESRD (end stage renal disease) on dialysis Generalized anxiety disorder History of anesthesia reaction "hard time waking up" History of COVID-19 ? early 2021- mild congestion, no hospitalization, no current issues History of stroke 2019- pts spouse poor historian HTN (hypertension) Hx: recurrent pneumonia Hypothyroidism RACHEL (iron deficiency anemia) Meniere's disease Morbid obesity Non-ST elevation SD (NSTEMI) pts spouse states it was "mild" does not follow w/ cardio- RENÉ on CPAP Parkinson disease Pleural effusion Restless leg syndrome Rheumatoid arthritis Subdural hematoma Surgical History H/O sinus surgery History of carpal tunnel surgery B/L History of orthopedic surgery " bilat heel surgery" History of tubal ligation Hx of arteriovenostomy for renal dialysis right arm Hx of total knee arthroplasty B/L Family History Other AAA (abdominal aortic aneurysm) Diabetes Family history non-contributory Hypertension Myotonic dystrophy Social History Smoking Status: Never smoker Cigarettes Per Day: 0.25ppd; Second Hand Exposure: No; Hx Alcohol Use: No Hx Substance Use: No Preferred Language: Kenyan Communication Ability: Effective Critical Care Paramedic Required: No Beliefs That Will Affect Care: None marital status: Current Living Situation: Spouse Current Living Situation Comment: lives in home with and has caregivers Feels Safe at Home: Yes Assistive Devices: CPAP, Denture - Lower, Glasses, Hearing Aid - Bilateral and Wheelchair Review of Systems A total of 10 systems reviewed and were otherwise negative Physical Exam Vital Signs Vital Signs - 24 hr 05/23/22 08:07 05/23/22 08:26 05/23/22 08:29 Temperature 36.4 C L Temperature Source Oral Pulse Rate 54 L 52 L Pulse Rate [Apical] Respiratory Rate 16 Respiratory Effort / Characteristics Respiratory Depth Normal Blood Pressure 155/60 H Blood Pressure [Left Arm] Blood Pressure Mean 91 Blood Pressure Mean [Left Arm] Blood Pressure Position Lying Blood Pressure Position [Left Arm] Pulse Oximetry 97 97 Oxygen Delivery Method Nasal Cannula Nasal Cannula Oxygen Flow Rate 2 2 Sepsis Recent Fever Within 48 Hours No Sepsis New/Unexplained Change in Mental Status No Sepsis Action Taken by Nursing No Action Required 05/23/22 09:17 05/23/22 10:04 05/23/22 12:17 Temperature Temperature Source Pulse Rate Pulse Rate [Apical] 102 H 55 L 102 H Respiratory Rate 18 18 16 Respiratory Effort / Characteristics Non-Labored Respiratory Depth Normal Normal Blood Pressure Blood Pressure [Left Arm] 114/78 144/60 H 118/37 L Blood Pressure Mean Blood Pressure Mean [Left Arm] 90 88 64 Blood Pressure Position Blood Pressure Position [Left Arm] Lying Pulse Oximetry 97 97 95 Oxygen Delivery Method Nasal Cannula Nasal Cannula Nasal Cannula Oxygen Flow Rate 2 2 2 Sepsis Recent Fever Within 48 Hours Sepsis New/Unexplained Change in Mental Status Sepsis Action Taken by Nursing 05/23/22 12:31 05/23/22 13:25 Temperature Temperature Source Pulse Rate 55 L Pulse Rate [Apical] 70 Respiratory Rate 16 Respiratory Effort / Characteristics Non-Labored Respiratory Depth Normal Blood Pressure Blood Pressure [Left Arm] 125/70 Blood Pressure Mean Blood Pressure Mean [Left Arm] 88 Blood Pressure Position Blood Pressure Position [Left Arm] Pulse Oximetry 97 Oxygen Delivery Method Nasal Cannula Oxygen Flow Rate 2 Sepsis Recent Fever Within 48 Hours Sepsis New/Unexplained Change in Mental Status Sepsis Action Taken by Nursing General: Well developed well nourished chronically ill-appearing older female who is hard of hearing but in no acute distress, breathing comfortably on room air. Normal speech HEENT: Normal cephalic atraumatic. Pupils are equal round and reactive to light. Extraocular movements are intact. Oropharynx is pink with moist mucous membranes. No swelling of the mouth lips or tongue. Neck: Supple with a midline trachea. No meningeal signs or stiffness, no JVD or bruits. No Stridor. Chest: Clear to auscultation bilaterally. No wheezes or rhonchi. No increased work of breathing. Heart: Regular rate and rhythm without murmurs or gallops. Abdomen: Soft, mildly tender in the epigastric area nondistended without rebound guarding or rigidity. Extremities: No cyanosis clubbing or edema. No calf tenderness or assymetry Spine/Back. Non tender to palpation. No CVA tenderness Skin: Good turgor without rashes. Neurologic exam: Cranial nerves two through 12 are intact. Motor and sensation are intact and symmetrical throughout. Course Administered Medications Discontinued Medications Ceftriaxone Sodium (Rocephin) 2,000 mg in 70 mls @ 140 mls/hr IV NOW ONE Stop: 05/23/22 10:59 Last Infusion: 05/23/22 12:42 Dose: 0 mls/hr Documented By: Admin: 05/23/22 12:12 Dose: 140 mls/hr Documented By: SHAMAR Critical Care Time Critical Care Time: Yes Total Critical Care Time: 30 Due to the patient's complex medical history, need for extensive work-up, IV antibiotics, consultation with the hospitalist and fire apparatus engineer to get the patient admitted and dialyzed and reassessed, I have personally spent greater than 30 minutes of critical care time in the direct management of this patient. This includes bedside care, interpretation of diagnostic studies, and testing, discussion with consultants, patient, and family members, and other required patient management activities. This 30 minutes is in excess of all separately b illable procedures. Medical Decision Making Differential Diagnosis Acute coronary syndrome, arrhythmia, electrolyte or metabolic abnormality, infection, intra-abdominal process, surgical process, trauma, musculoskeletal Medical Records Attestation: I reviewed the patient's medical records. Home Medications Current Medication List: was personally reviewed by me Laboratory Data Attestation: I reviewed the patient's lab results. 05/23/22 08:57 03/09/23 08:57 Lab Results 05/23/22 05/23/22 05/23/22 Range/Units 08:30 08:44 08:57 WBC 10.86 H (4.8-10.8) K/ul RBC 3.46 L (4.20-5.40) M/uL Hgb 11.0 L (12.0-16.0) g/dl Hct 35.7 L (37.0-47.0) % MCV 103.2 H (80.0-100.0) fL MCH 31.8 (25.0-34.0) pg MCHC 30.8 L (32.0-36.0) g/dL RDW Std Deviation 79.8 H (36.4-46.3) fL RDW Coeff of Bhavin 21.3 H (11.5-14.5) % Plt Count 254 (130-400) K/uL MPV 11.3 (9.4-12.4) fL Immature Gran % (Auto) 2.0 % Neut % (Auto) 69.6 % Lymph % (Auto) 12.7 % Starke % (Auto) 9.1 % Eos % (Auto) 5.2 % Baso % (Auto) 1.4 % Neut # (Auto) 7.56 H (1.40-6.50) K/uL Lymph # (Auto) 1.38 (1.2-3.4) K/uL Starke # (Auto) 0.99 H (0.11-0.59) K/uL Eos # (Auto) 0.56 H (0-0.50) K/uL Baso # (Auto) 0.15 (0-0.2) K/uL Immature Gran # (Auto) 0.22 H (0.01-0.20) K/uL Polychromasia 1+ Anisocytosis Present PT (9.0-12.0) Seconds INR (0.9-1.1) Sodium (136-145) mmol/L Potassium (3.5-5.1) mmol/L Chloride (98-107) mmol/L Carbon Dioxide (21-32) mmol/L Anion Gap (3-11) BUN (6-23) mg/dl Creatinine (0.6-1.2) mg/dl Est Cr Clr Drug Dosing Est GFR ( Amer) ml/min Est GFR (Non-Af Amer) ml/min BUN/Creatinine Ratio (10-20) Glucose (70-99(Fasting)) mg/dl Calcium (8.5-10.1) mg/dl Magnesium (1.7-2.4) mg/dl Total Bilirubin (0.2-1.0) mg/dl AST (13-39) U/L ALT (7-52) U/L Alkaline Phosphatase (34-104) U/L Troponin I High Sens (0-14) pg/ml Total Protein (6.0-8.3) gm/dl Albumin (3.4-5.0) gm/dl Globulin (2.5-4.0) gm/dl Albumin/Globulin Ratio (0.9-2) TSH (0.300-4.500) uIu/ml Urine Color Dark Yellow Urine Appearance Turbid A (Clear) Urine pH 8.5 H (4.5-7.5) Ur Specific Lincoln 1.010 (1.000-1.030) Urine Protein 3+ H (Negative) Urine Glucose (UA) Negative (Negative) Urine Ketones Negative (Negative) Urine Blood 3+ H (Negative) Urine Nitrite Negative (Negative) Urine Bilirubin Negative (Negative) Urine Urobilinogen Negative (Negative) Ur Leukocyte Esterase 3+ H (Negative) Urine WBC (Auto) >30 H (0-5) /hpf Urine RBC (Auto) 5-10 H (0-4) /hpf U Hyaline Cast (Auto) 0 (0-5) /lpf U Epithel Cells (Auto) >30 H (0-5) /lpf Urine Bacteria (Auto) 4+ H (Negative) Urine Yeast Not Reportable SARS-CoV-2, RNA, NAAT NEGATIVE (NEGATIVE) 05/23/22 05/23/22 05/23/22 Range/Units 08:57 08:57 08:57 WBC (4.8-10.8) K/ul RBC (4.20-5.40) M/uL Hgb (12.0-16.0) g/dl Hct (37.0-47.0) % MCV (80.0-100.0) fL MCH (25.0-34.0) pg MCHC (32.0-36.0) g/dL RDW Std Deviation (36.4-46.3) fL RDW Coeff of Bhavin (11.5-14.5) % Plt Count (130-400) K/uL MPV (9.4-12.4) fL Immature Gran % (Auto) % Neut % (Auto) % Lymph % (Auto) % Starke % (Auto) % Eos % (Auto) % Baso % (Auto) % Neut # (Auto) (1.40-6.50) K/uL Lymph # (Auto) (1.2-3.4) K/uL Starke # (Auto) (0.11-0.59) K/uL Eos # (Auto) (0-0.50) K/uL Baso # (Auto) (0-0.2) K/uL Immature Gran # (Auto) (0.01-0.20) K/uL Polychromasia Anisocytosis PT 10.1 (9.0-12.0) Seconds INR 0.9 (0.9-1.1) Sodium 141 (136-145) mmol/L Potassium 5.2 H (3.5-5.1) mmol/L Chloride 101 (98-107) mmol/L Carbon Dioxide 33 H (21-32) mmol/L Anion Gap 7 (3-11) BUN 34 H (6-23) mg/dl Creatinine 8.35 H* (0.6-1.2) mg/dl Est Cr Clr Drug Dosing Not Reportable Est GFR ( Amer) 4.9 ml/min Est GFR (Non-Af Amer) 4.2 ml/min BUN/Creatinine Ratio 4.1 L (10-20) Glucose 99 (70-99(Fasting)) mg/dl Calcium 9.4 (8.5-10.1) mg/dl Magnesium 2.6 H (1.7-2.4) mg/dl Total Bilirubin 0.3 (0.2-1.0) mg/dl AST 32 (13-39) U/L ALT 7 (7-52) U/L Alkaline Phosphatase 76 (34-104) U/L Troponin I High Sens 71.7 H* (0-14) pg/ml Total Protein 7.3 (6.0-8.3) gm/dl Albumin 4.2 (3.4-5.0) gm/dl Globulin 3.1 (2.5-4.0) gm/dl Albumin/Globulin Ratio 1.4 (0.9-2) TSH 1.065 (0.300-4.500) uIu/ml Urine Color Urine Appearance (Clear) Urine pH (4.5-7.5) Ur Specific Lincoln (1.000-1.030) Urine Protein (Negative) Urine Glucose (UA) (Negative) Urine Ketones (Negative) Urine Blood (Negative) Urine Nitrite (Negative) Urine Bilirubin (Negative) Urine Urobilinogen (Negative) Ur Leukocyte Esterase (Negative) Urine WBC (Auto) (0-5) /hpf Urine RBC (Auto) (0-4) /hpf U Hyaline Cast (Auto) (0-5) /lpf U Epithel Cells (Auto) (0-5) /lpf Urine Bacteria (Auto) (Negative) Urine Yeast SARS-CoV-2, RNA, NAAT (NEGATIVE) Imaging Data Attestation: I personally reviewed and interpreted this imaging study as follows: My Impression: Chest x-raycardiomegaly and poor respiratory effort without any pneumothorax or focal infiltrate seen. There may be a mild degree of fluid overload Radiologist's Impression: Chest X-Ray 05/23/22 08:22 XR chest 1V portable HISTORY: 76 years-old Female weakness acute weakness COMPARISON: Chest CT of same day TECHNIQUE: AP view of the chest FINDINGS: Cardiac silhouette is enlarged. No pneumothorax, pleural effusion or airspace consolidation. Pulmonary vascular congestion with mild bibasilar atelectasis. Degenerative changes of the shoulders and spine. IMPRESSION: Cardiomegaly with pulmonary vascular congestion. ACT 112: Negative or not required by law. The above report was generated using voice recognition software. It may contain grammatical, syntax or spelling errors. Electronically signed by: Benito Stiles M.D. 05/23/2022 9:26 AM Abdomen/Pelvis CT 05/23/22 08:23 CT SCAN OF THE CHEST, ABDOMEN, AND PELVIS WITHOUT IV CONTRAST CLINICAL HISTORY: Fall. COMPARISON STUDY: Chest x-ray dated 05/23/2022. Chest CT dated 01/30/2020. Abdominal CT dated 11/10/2019. TECHNIQUE: Unenhanced CT scan of the chest, abdomen, and pelvis was performed from the thoracic inlet to the proximal femora. Images are reviewed in the axial, sagittal, and coronal planes. IV contrast was not administered for this examination. Note that the examination is significantly suboptimal without IV contrast. The examinations are degraded by motion artifact. A dose lowering technique was utilized adhering to the principles of ALARA. CT DOSE: 1640.74 mGy.cm FINDINGS: CHEST: Thyroid: The thyroid gland is enlarged and heterogeneous. Thoracic aorta: There is atherosclerotic calcification of the thoracic aorta, which is normal in caliber and demonstrates standard 3-vessel arch anatomy. Heart: The heart is enlarged and without pericardial effusion. The coronary arteries are densely calcified. Lungs and pleural spaces: Evaluation of the lung parenchyma is compromised by motion artifact. No airspace consolidation, pleural effusion, or pneumothorax is identified. The trachea and central airways are clear. Dependent atelectasis is noted in both lungs. There are scattered calcified granulomas. Mediastinum: There is no mediastinal hematoma or lymphadenopathy. Xuan: Not well assessed without IV contrast. Axillae: There is no axillary lymphadenopathy. Bony thorax: The skeletal structures are osteopenic. No lytic or blastic lesions are identified. Degenerative change is noted in the shoulders and thoracic spine. ABDOMEN AND PELVIS: Liver: The unenhanced liver is normal in size, contour, and attenuation. There is no intrahepatic biliary ductal dilatation. Gallbladder: Unremarkable. Spleen: Normal in size and attenuation. Pancreas: The unenhanced pancreas is mildly atrophic and grossly unremarkable. Adrenal glands: Unremarkable. Kidneys: The unenhanced kidneys are atrophic and without hydronephrosis. No renal calculi are identified. A subcentimeter exophytic cyst is noted on the left. Abdominal vasculature: The abdominal aorta is normal in course and caliber noting advanced atherosclerotic calcification. Stomach and bowel: There is a small hiatal hernia. There is mild colonic diverticulosis without CT evidence of acute diverticulitis. No bowel obstruction is seen. The appendix is well-visualized and normal. Peritoneum: There is no intraperitoneal free air or abdominal ascites. Lymphadenopathy: None. Pelvic viscera: The bladder is decompressed and grossly unremarkable. The endometrium appears thickened and heterogeneous. No adnexal lesion is seen. There is asymmetric atrophy of the left iliopsoas musculature. Skeletal structures: The skeletal structures are osteopenic. There is moderate lumbosacral spondylosis with evidence of previous lumbar spinal surgery. The lumbosacral spine, bony pelvis, and proximal femora appear intact. Degenerative change is seen in the hips and sacroiliac joints. No lytic or blastic lesions are seen. IMPRESSION: 1. There is no acute posttraumatic intrathoracic abnormality. 2. There is no airspace consolidation, pleural effusion, or pneumothorax. 3. Cardiomegaly. 4. There is no evidence of solid organ injury in the abdomen or pelvis on this unenhanced examination. 5. The endometrium appears thickened and heterogeneous. This is not well assessed by CT. Nonemergent follow-up with gynecology and pelvic ultrasound is recommended for further assessment. 6. Additional findings as above. ACT 112: Negative or not required by law. Electronically signed by: Deep Smith M.D. 05/23/2022 9:[address] 05/23/22 08:23 CT SCAN OF THE CHEST, ABDOMEN, AND PELVIS WITHOUT IV CONTRAST CLINICAL HISTORY: Fall. COMPARISON STUDY: Chest x-ray dated 05/23/2022. Chest CT dated 01/30/2020. Abdominal CT dated 11/10/2019. TECHNIQUE: Unenhanced CT scan of the chest, abdomen, and pelvis was performed from the thoracic inlet to the proximal femora. Images are reviewed in the axial, sagittal, and coronal planes. IV contrast was not administered for this examination. Note that the examination is significantly suboptimal without IV contrast. The examinations are degraded by motion artifact. A dose lowering technique was utilized adhering to the principles of ALARA. CT DOSE: 1640.74 mGy.cm FINDINGS: CHEST: Thyroid: The thyroid gland is enlarged and heterogeneous. Thoracic aorta: There is atherosclerotic calcification of the thoracic aorta, which is normal in caliber and demonstrates standard 3-vessel arch anatomy. Heart: The heart is enlarged and without pericardial effusion. The coronary arteries are densely calcified. Lungs and pleural spaces: Evaluation of the lung parenchyma is compromised by motion artifact. No airspace consolidation, pleural effusion, or pneumothorax is identified. The trachea and central airways are clear. Dependent atelectasis is noted in both lungs. There are scattered calcified granulomas. Mediastinum: There is no mediastinal hematoma or lymphadenopathy. Xuan: Not well assessed without IV contrast. Axillae: There is no axillary lymphadenopathy. Bony thorax: The skeletal structures are osteopenic. No lytic or blastic lesions are identified. Degenerative change is noted in the shoulders and thoracic spine. ABDOMEN AND PELVIS: Liver: The unenhanced liver is normal in size, contour, and attenuation. There is no intrahepatic biliary ductal dilatation. Gallbladder: Unremarkable. Spleen: Normal in size and attenuation. Pancreas: The unenhanced pancreas is mildly atrophic and grossly unremarkable. Adrenal glands: Unremarkable. Kidneys: The unenhanced kidneys are atrophic and without hydronephrosis. No renal calculi are identified. A subcentimeter exophytic cyst is noted on the left. Abdominal vasculature: The abdominal aorta is normal in course and caliber noting advanced atherosclerotic calcification. Stomach and bowel: There is a small hiatal hernia. There is mild colonic diverticulosis without CT evidence of acute diverticulitis. No bowel obstruction is seen. The appendix is well-visualized and normal. Peritoneum: There is no intraperitoneal free air or abdominal ascites. Lymphadenopathy: None. Pelvic viscera: The bladder is decompressed and grossly unremarkable. The endometrium appears thickened and heterogeneous. No adnexal lesion is seen. There is asymmetric atrophy of the left iliopsoas musculature. Skeletal structures: The skeletal structures are osteopenic. There is moderate lumbosacral spondylosis with evidence of previous lumbar spinal surgery. The lumbosacral spine, bony pelvis, and proximal femora appear intact. Degenerative change is seen in the hips and sacroiliac joints. No lytic or blastic lesions are seen. IMPRESSION: 1. There is no acute posttraumatic intrathoracic abnormality. 2. There is no airspace consolidation, pleural effusion, or pneumothorax. 3. Cardiomegaly. 4. There is no evidence of solid organ injury in the abdomen or pelvis on this unenhanced examination. 5. The endometrium appears thickened and heterogeneous. This is not well assessed by CT. Nonemergent follow-up with gynecology and pelvic ultrasound is recommended for further assessment. 6. Additional findings as above. ACT 112: Negative or not required by law. Electronically signed by: Deep Smith M.D. 05/23/2022 9:46 AM ECG Data Attestation: I personally reviewed and interpreted this ECG as follows: Indication: + abdominal pain Rate (beats per minute): 57 Rhythm: + sinus bradycardia ECG Intervals/blocks: + Left bundle branch block, + Normal QT and + Normal IL ECG [place]: + Normal ECG ST segments: + Normal ST segments ECG Findings: no PACs or no PVCs Comparison ECG Date: from (11/15/21) Change: no significant change MDM Narrative This patient comes in as described above. She was placed on a shelter monitor and B11. She is here for treatment and evaluation of nausea some mild abdominal discomfort and generalized weakness. She has a very complex medical history she is a dialysis patient and missed dialysis today but did not miss before today. She had no fever chills she did have some minor trauma/fall yesterday with no syncope. she does have a bruise on her flank and light of this, I did do CAT scans of the chest and abdomen to rule out any injuries or other intra-abdominal process. IV access was established, blood work was obtained, EKG was obtained which shows a baseline left bundle mila block without ischemic changes. I did order urinalysis as well. She was COVID tested. COVID testing was negative. Chest x-ray does not show pneumonia or any focal infiltrate or pneumothorax. Her white count is mildly elevated urinalysis does suggest a UTI is possible she could be infected and uroseptic. She was given Rocephin IV she has had this before. CAT scan of the chest and abdomen unremarkable. Her troponin is also mildly elevated although she has no chest pain or any definite EKG changes. I do think she needs to be admitted/observed for further evaluation also because she missed dialysis today and will need dialysis in the hospital. I did discuss the case with Dr. Yumi Felipe and he will see her in the ER I also discussed it with the [facility] fire apparatus engineer and he will see her in the ER and likely dialysis later today as well. Continuous cardiac monitoring: Orders placed in EMR for continuous cardiac monitoring. Upon my evaluation patient was noted to be in normal sinus rhythm with a rate of 60 and a bundle branch block type pattern Impression & Plan Abdominal pain, LBBB (left bundle branch block), Nausea, End-stage renal disease (ESRD), Acute UTI, Weakness, Lab test negative for COVID-19 virus Discharge Plan Visit Data Chief Complaint: Illness Stated Complaint: ILLNESS, DIZZINESS, AB PAIN, HYPOXIA ED Provider: Carmine Rucker Discharge Problem: Abdominal pain, LBBB (left bundle branch block), Nausea, End-stage renal disease (ESRD), Acute UTI, Weakness, Lab test negative for COVID-19 virus Discharge Instructions Interventions: ED Discharge Assessment Last Done: 05/23/22 14:36 Forms Stand Alone Forms: My [facility] Prescriptions Prescriptions: No Action atorvastatin 80 mg tablet 80 mg PO QPM isosorbide mononitrate 30 mg tablet extended release 24 hr 30 mg PO QPM sertraline 100 mg tablet 100 mg PO QPM cyanocobalamin (vitamin B-12) [Vitamin B-12] 1,000 mcg Tablet 1,000 mcg PO QPM aspirin 81 mg Tablet,Delayed Release (Dr/Ec) 162 mg PO QPM lidocaine-prilocaine 2.5-2.5 % cream 1 applic topical DIRECTED Rx Instructions: Apply small amount to access site 1 hr before dialysis. levothyroxine 125 mcg tablet 125 mcg PO QAM docusate sodium [Colace] 100 mg Capsule 100 mg PO UD Rx Instructions: 3 times per week carbidopa-levodopa 25-100 mg tablet 1 tab PO TIDM calcium acetate(phosphat bind) 667 mg capsule 667 mg PO TID pregabalin 100 mg capsule 100 mg PO BID cholecalciferol (vitamin D3) [Vitamin D3] 125 mcg (5,000 unit) Tablet 125 mcg PO QPM Auryxia 210 mg iron Tablet 210 mg PO TID Rx Instructions: administer with a meal Nanci-Samuel 0.8 mg Tablet 1 tab PO QPM pantoprazole 20 mg tablet,delayed release (DR/EC) 20 mg PO BID Referrals Referrals: Bella Villanueva MD [Primary Care Provider] -
[2022-05-23 08:58] LABS: Appearance Urine Turbid (Clear); Bacteria Urine Automated 4+ (Negative); Bilirubin Urine Negative (Negative); Blood Urine 3+ (Negative); Epithelial Cell Urine Auto >30 /lpf (0-5); Glucose Urine UA Negative (Negative); Ketones Urine Negative (Negative); Leukocyte Esterase Urine 3+ (Negative); Nitrite Urine Negative (Negative); Urobilinogen Urine Negative (Negative); WBC Urine Automated >30 /hpf (0-5); pH Urine 8.5 (4.5-7.5)
[2022-05-23 09:02] LABS: Protein Urine 3+ (Negative)
[2022-05-23 09:03] LABS: Color Urine Dark Yellow
[2022-05-23 09:14] LABS: Cast Urine Automated 0 /lpf (0-5)
--- NOTE | 2022-05-23 09:28 | XRay Report ---
XR chest 1V portable HISTORY: 76 years-old Female weakness acute weakness COMPARISON: Chest CT of same day TECHNIQUE: AP view of the chest FINDINGS: Cardiac silhouette is enlarged. No pneumothorax, pleural effusion or airspace consolidation. Pulmonar y vascular congestion with mild bibasilar atelectasis. Degenerative changes of the shoulders and spin e. IMPRESSION: Cardiomegaly with pulmonary vascular congestion. ACT 112: Negative or not required by law. The above report was generated using voice recognition software. It may contain grammatical, syntax o r spelling errors. Electronically signed by: Benito Stiles M.D. 05/23/2022 9:26 AM
[2022-05-23 09:37] LABS: Hematocrit (blood only) 35.7 % (37.0-47.0); INR 0.9 (0.9-1.1); Mean Corpuscular Hemoglobin 31.8 pg (25.0-34.0); Mean Corpuscular Hgb Conc 30.8 g/dL (32.0-36.0); Mean Corpuscular Volume 103.2 fL (80.0-100.0); Mean Platelet Volume 11.3 fL (9.4-12.4); Platelet Count 254 K/uL (130-400); Prothrombin Time 10.1 Seconds (9.0-12.0); RDW Coefficient of Variation 21.3 % (11.5-14.5); RDW Standard Deviation 79.8 fL (36.4-46.3); Red Blood Count 3.46 M/uL (4.20-5.40); White Blood Count 10.86 K/ul (4.8-10.8)
[2022-05-23 09:41] LABS: Anisocytosis Present; Basophils # (auto) 0.15 K/uL (0-0.2); Basophils % (auto) 1.4 %; Eosinophils # (auto) 0.56 K/uL (0-0.50); Eosinophils % (auto) 5.2 %; Immature Granulocytes # (auto) 0.22 K/uL (0.01-0.20); Lymphocytes # (auto) 1.38 K/uL (1.2-3.4); Lymphocytes % (auto) 12.7 %; Monocytes # (auto) 0.99 K/uL (0.11-0.59); Monocytes % (auto) 9.1 %; Neutrophils # (auto) 7.56 K/uL (1.40-6.50); Neutrophils % (auto) 69.6 %; Polychromasia 1+
--- NOTE | 2022-05-23 09:48 | CT Scan Report ---
CT SCAN OF THE CHEST, ABDOMEN, AND PELVIS WITHOUT IV CONTRAST CLINICAL HISTORY: Fall. COMPARISON STUDY: Chest x-ray dated 05/23/2022. Chest CT dated 01/30/2020. Abdominal CT dated 0. TECHNIQUE: Unenhanced CT scan of the chest, abdomen, and pelvis was performed from the thoracic inlet to the proximal femora. Images are reviewed in the axial, sagittal, and coronal planes. IV contrast was not administered for this examination. Note that the examination is significantly suboptimal with out IV contrast. The examinations are degraded by motion artifact. A dose lowering technique was uti lized adhering to the principles of ALARA. CT DOSE: 1640.74 mGy.cm FINDINGS: CHEST: Thyroid: The thyroid gland is enlarged and heterogeneous. Thoracic aorta: There is atherosclerotic calcification of the thoracic aorta, which is normal in keith ansley and demonstrates standard 3-vessel arch anatomy. Heart: The heart is enlarged and without pericardial effusion. The coronary arteries are densely calc ified. Lungs and pleural spaces: Evaluation of the lung parenchyma is compromised by motion artifact. No air space consolidation, pleural effusion, or pneumothorax is identified. The trachea and central airways are clear. Dependent atelectasis is noted in both lungs. There are scattered calcified granulomas. Mediastinum: There is no mediastinal hematoma or lymphadenopathy. Xuan: Not well assessed without IV contrast. Axillae: There is no axillary lymphadenopathy. Bony thorax: The skeletal structures are osteopenic. No lytic or blastic lesions are identified. Dege nerative change is noted in the shoulders and thoracic spine. ABDOMEN AND PELVIS: Liver: The unenhanced liver is normal in size, contour, and attenuation. There is no intrahepatic jerson iary ductal dilatation. Gallbladder: Unremarkable. Spleen: Normal in size and attenuation. Pancreas: The unenhanced pancreas is mildly atrophic and grossly unremarkable. Adrenal glands: Unremarkable. Kidneys: The unenhanced kidneys are atrophic and without hydronephrosis. No renal calculi are identif ied. A subcentimeter exophytic cyst is noted on the left. Abdominal vasculature: The abdominal aorta is normal in course and caliber noting advanced atheroscle rotic calcification. Stomach and bowel: There is a small hiatal hernia. There is mild colonic diverticulosis without CT ev idence of acute diverticulitis. No bowel obstruction is seen. The appendix is well-visualized and no rmal. Peritoneum: There is no intraperitoneal free air or abdominal ascites. Lymphadenopathy: None. Pelvic viscera: The bladder is decompressed and grossly unremarkable. The endometrium appears thicken ed and heterogeneous. No adnexal lesion is seen. There is asymmetric atrophy of the left iliopsoas mu sculature. Skeletal structures: The skeletal structures are osteopenic. There is moderate lumbosacral spondylosi s with evidence of previous lumbar spinal surgery. The lumbosacral spine, bony pelvis, and proximal f emora appear intact. Degenerative change is seen in the hips and sacroiliac joints. No lytic or blast ic lesions are seen. IMPRESSION: 1. There is no acute posttraumatic intrathoracic abnormality. 2. There is no airspace consolidation, pleural effusion, or pneumothorax. 3. Cardiomegaly. 4. There is no evidence of solid organ injury in the abdomen or pelvis on this unenhanced examination . 5. The endometrium appears thickened and heterogeneous. This is not well assessed by CT. Nonemergent follow-up with gynecology and pelvic ultrasound is recommended for further assessment. 6. Additional findings as above. ACT 112: Negative or not required by law. Electronically signed by: Deep Smith M.D. 05/23/2022 9:46 AM
[2022-05-23 09:55] LABS: Alanine Aminotransferase 7 U/L (7-52); Albumin Globulin Ratio 1.4 (0.9-2); Albumin Level 4.2 gm/dl (3.4-5.0); Alkaline Phosphatase 76 U/L (34-104); Anion Gap 7 (3-11); Aspartate Aminotransferase 32 U/L (13-39); BUN Creatinine Ratio 4.1 (10-20); Bilirubin,Total 0.3 mg/dl (0.2-1.0); Blood Urea Nitrogen 34 mg/dl (6-23); Calcium 9.4 mg/dl (8.5-10.1); Carbon Dioxide 33 mmol/L (21-32); Chloride 101 mmol/L (98-107); Est GFR (African American) 4.9 ml/min; Est GFR (Non-African American) 4.2 ml/min; Globulin 3.1 gm/dl (2.5-4.0); Glucose 99 mg/dl (70-99(Fasting)); Magnesium 2.6 mg/dl (1.7-2.4); Potassium 5.2 mmol/L (3.5-5.1); Sodium 141 mmol/L (136-145); Total Protein 7.3 gm/dl (6.0-8.3); Troponin I High Sensitivity 71.7 pg/ml (0-14)
[2022-05-23] MEDS ORDERED: cefTRIAXone SODIUM 2,000 MG/70 ML BAG IV ONE (10:30)
--- NOTE | 2022-05-23 11:20 | History & Physical Report ---
Date of Service May 23, 2022 Assessment & Plan (1) Abdominal pain: (2) Nausea: (3) Generalized weakness: Plan: Nausea, vomiting, abdominal pain and generalized weakness. Labs notable for potassium of 5.2, creatinine of 3.35, magnesium of 2.6, troponin of 71.7. There is no acute abnormality on CT chest/abd/pelvis Increased endometrial thickness noted on CT abd can be further evaluated outpatient with pelvic USS/HOME ORGANIZER follow up UA suggestive of possible UTI with leuk esterase, >30WBC Started on ceftriaxone Will continue this for now Follow up urine culture and blood cultures will like PT/OT. He stated that patient was more active a while ago when she was getting PT/OT but since they stopped, she also stopped doing exercises they had advised. PT/OT ordered Trop elevated. Likely in the setting of ESRD EKG show old LBBB Tele monitor Trend trop. (4) End-stage renal disease (ESRD): Plan: She was supposed to get HD today Nephro consult for HD Notified Dr Bruce (5) Chronic diastolic heart failure: Plan: Continue home medications (6) Parkinson disease: Plan: Continue sinemet Continue CPAP HS for RENÉ DVT ppx- hep sq CODE STATUS - DNR per /patient Dispo - med tele History of Present Illness Chief Complaint: Generalized weakness, abd pain Primary Care Provider: Bella Villanueva MD 76-year-old old woman with history of DM type II, hypothyroidism, RENÉ on CPAP, morbid obesity, Parkinson's disease, end-stage renal disease on hemodialysis and other medical problems who was brought in for generalized weakness abdominal pain and vomiting. History provided by patient and . reported that symptoms started yesterday. Stated that patient was wea ker than usual. At baseline, she usually able to use the left to get from bed to power chair. She moves around with a power chair. However, yesterday she was so weak that she could not even hold herself up with the left and slid out of the ground. reported she was too weak to hold the lift so she slid to the ground. Denied any trauma or hitting the head, LOC. also reported that she vomited yesterday and slept for almost 15 hours from yesterday afternoon until this morning. Patient denied any fevers, chills. Acknowledges nausea and vomiting. None at this time. Reports abdominal pain that is more central and lower abdomen. Denied any diarrhea. Patient still makes urine. Denies any dysuria, frequency, urgency. Denies any new cough. reports she usually coughs occasionally and putting up CPAP but nothing out of the ordinary. Denies any shortness of breath at rest. Denies chest pain, palpitations. Allergies Allergy/AdvReac Type Severity Reaction Status Date / Time No Known Allergies Allergy Verified 04/19/22 09:17 Home Medications Medication Instructions Recorded Confirmed Type aspirin 81 mg tablet,delayed 162 mg PO QPM 11/15/21 05/23/22 History release atorvastatin 80 mg tablet 80 mg PO QPM 11/15/21 05/23/22 History calcium acetate(phosphat bind) 667 667 mg PO TID 11/15/21 05/23/22 History mg capsule carbidopa 25 mg-levodopa 100 mg 1 tab PO TIDM 11/15/21 05/23/22 History tablet cholecalciferol (vitamin D3) 125 125 mcg PO QPM 11/15/21 05/23/22 History mcg (5,000 unit) tablet (Vitamin D3) cyanocobalamin (vitamin B-12) 1,000 mcg PO QPM 11/15/21 05/23/22 History 1,000 mcg tablet (Vitamin B-12) docusate sodium 100 mg capsule 100 mg PO UD 11/15/21 05/23/22 History (Colace) isosorbide mononitrate 30 mg 30 mg PO QPM 11/15/21 05/23/22 History tablet,extended release 24 hr levothyroxine 125 mcg tablet 125 mcg PO QAM 11/15/21 05/23/22 History lidocaine-prilocaine 2.5 %-2.5 % 1 applic topical DIRECTED 11/15/21 05/23/22 History topical cream pregabalin 100 mg capsule 100 mg PO BID 11/15/21 05/23/22 History sertraline 100 mg tablet 100 mg PO QPM 11/15/21 05/23/22 History ferric citrate 210 mg iron tablet 210 mg PO TID 04/16/22 05/23/22 History (Auryxia) vitamin B complex-vitamin C-folic 1 tab PO QPM 04/16/22 05/23/22 History acid 0.8 mg tablet (Nanci-Samuel) pantoprazole 20 mg tablet,delayed 20 mg PO BID 05/23/22 05/23/22 History release Past Med/Surg History Medical History Acute hypoxemic respiratory failure AMS (altered mental status) Aspiration pneumonia HX Chronic diastolic heart failure Depression Diabetes mellitus, type II NO MEDS Dyslipidemia Encephalopathy ESRD (end stage renal disease) on dialysis Generalized anxiety disorder History of anesthesia reaction "hard time waking up" History of COVID-19 ? early 2021- mild congestion, no hospitalization, no current issues History of stroke 2019- pts spouse poor historian HTN (hypertension) Hx: recurrent pneumonia Hypothyroidism RACHEL (iron deficiency anemia) Meniere's disease Morbid obesity Non-ST elevation IA (NSTEMI) pts spouse states it was "mild" does not follow w/ cardio- RENÉ on CPAP Parkinson disease Pleural effusion Restless leg syndrome Rheumatoid arthritis Subdural hematoma Surgical History H/O sinus surgery History of carpal tunnel surgery B/L History of orthopedic surgery " bilat heel surgery" History of tubal ligation Hx of arteriovenostomy for renal dialysis right arm Hx of total knee arthroplasty B/L Family History Other AAA (abdominal aortic aneurysm) Diabetes Family history non-contributory Hypertension Myotonic dystrophy Social History Smoking Status: Never smoker Cigarettes Per Day: 0.25ppd; Second Hand Exposure: No; Hx Alcohol Use: No Hx Substance Use: No Preferred Language: Icelandic Communication Ability: Effective Medical Billing Specialist Required: No Beliefs That Will Affect Care: None marital status: Current Living Situation: Spouse Current Living Situation Comment: lives in home with and has caregivers Feels Safe at Home: Yes Assistive Devices: CPAP, Denture - Lower, Glasses, Hearing Aid - Bilateral and Wheelchair Review of Systems Review of Systems: All systems reviewed & are unremarkable except as noted in HPI & below Physical Exam Constitutional: + well hydrated and + obese; no acute distress Eyes: PERRL, conjunctivae normal, anicteric sclerae ENMT: external ear and nose normal, oropharynx normal Has significant hearing deficits [hearing aid not available at this time] Respiratory: normal respiratory effort, lungs clear to auscultation Cardiovascular: Rate/Rhythm: regular rhythm and + bradycardic S1-S2 Gastrointestinal (Abdomen): normal bowel sounds, soft, nontender, no hepatosplenomegaly Musculoskeletal: No pedal edema Skin: Bruise on low back (site of fall per ) Neurologic: PERRL, EOMI, accommodation nl, no face palsy, no dysarthria Psychiatric: A+Ox3, euthymic affect Genitourinary: No CVA tenderness Results & Data Results & Data ([facility]) Vital Signs (Past 12 Hours) Vital Signs Temp Pulse Pulse Resp BP BP Pulse Ox 05/23/22 10:04 55 L 18 144/60 H 97 05/23/22 09:17 102 H 18 114/78 97 05/23/22 08:29 52 L 05/23/22 08:26 97 05/23/22 08:07 36.4 C L 54 L 16 155/60 H 97 O2 Del Method O2 Flow Rate 05/23/22 10:04 Nasal Cannula 2 05/23/22 09:17 Nasal Cannula 2 05/23/22 08:29 05/23/22 08:26 Nasal Cannula 2 05/23/22 08:07 Nasal Cannula 2 Laboratory Results Laboratory Results - last 24 hr 05/23/22 05/23/22 05/23/22 08:30 08:44 08:57 WBC 10.86 H RBC 3.46 L Hgb 11.0 L Hct 35.7 L MCV 103.2 H MCH 31.8 MCHC 30.8 L RDW Std Deviation 79.8 H RDW Coeff of Bhavin 21.3 H Plt Count 254 MPV 11.3 Immature Gran % (Auto) 2.0 Neut % (Auto) 69.6 Lymph % (Auto) 12.7 Crawford % (Auto) 9.1 Eos % (Auto) 5.2 Baso % (Auto) 1.4 Neut # (Auto) 7.56 H Lymph # (Auto) 1.38 Crawford # (Auto) 0.99 H Eos # (Auto) 0.56 H Baso # (Auto) 0.15 Immature Gran # (Auto) 0.22 H Polychromasia 1+ Anisocytosis Present PT INR Sodium Potassium Chloride Carbon Dioxide Anion Gap BUN Creatinine Est Cr Clr Drug Dosing Est GFR ( Amer) Est GFR (Non-Af Amer) BUN/Creatinine Ratio Glucose Calcium Magnesium Total Bilirubin AST ALT Alkaline Phosphatase Troponin I High Sens Total Protein Albumin Globulin Albumin/Globulin Ratio TSH Urine Color Dark Yellow Urine Appearance Turbid A Urine pH 8.5 H Ur Specific [place] 1.010 Urine Protein 3+ H Urine Glucose (UA) Negative Urine Ketones Negative Urine Blood 3+ H Urine Nitrite Negative Urine Bilirubin Negative Urine Urobilinogen Negative Ur Leukocyte Esterase 3+ H Urine WBC (Auto) >30 H Urine RBC (Auto) 5-10 H U Hyaline Cast (Auto) 0 U Epithel Cells (Auto) >30 H Urine Bacteria (Auto) 4+ H Urine Yeast Not Reportable SARS-CoV-2, RNA, NAAT NEGATIVE 05/23/22 05/23/22 05/23/22 08:57 08:57 08:57 WBC RBC Hgb Hct MCV MCH MCHC RDW Std Deviation RDW Coeff of Bhavin Plt Count MPV Immature Gran % (Auto) Neut % (Auto) Lymph % (Auto) Crawford % (Auto) Eos % (Auto) Baso % (Auto) Neut # (Auto) Lymph # (Auto) Crawford # (Auto) Eos # (Auto) Baso # (Auto) Immature Gran # (Auto) Polychromasia Anisocytosis PT 10.1 INR 0.9 Sodium 141 Potassium 5.2 H Chloride 101 Carbon Dioxide 33 H Anion Gap 7 BUN 34 H Creatinine 8.35 H* Est Cr Clr Drug Dosing Not Reportable Est GFR ( Amer) 4.9 Est GFR (Non-Af Amer) 4.2 BUN/Creatinine Ratio 4.1 L Glucose 99 Calcium 9.4 Magnesium 2.6 H Total Bilirubin 0.3 AST 32 ALT 7 Alkaline Phosphatase 76 Troponin I High Sens 71.7 H* Total Protein 7.3 Albumin 4.2 Globulin 3.1 Albumin/Globulin Ratio 1.4 TSH 1.065 Urine Color Urine Appearance Urine pH Ur Specific [place] Urine Protein Urine Glucose (UA) Urine Ketones Urine Blood Urine Nitrite Urine Bilirubin Urine Urobilinogen Ur Leukocyte Esterase Urine WBC (Auto) Urine RBC (Auto) U Hyaline Cast (Auto) U Epithel Cells (Auto) Urine Bacteria (Auto) Urine Yeast SARS-CoV-2, RNA, NAAT Diagnostic Findings CT SCAN OF THE CHEST, ABDOMEN, AND PELVIS WITHOUT IV CONTRAST CLINICAL HISTORY: Fall. COMPARISON STUDY: Chest x-ray dated 05/23/2022. Chest CT dated 01/30/2020. Abdominal CT dated 11/10/2019. TECHNIQUE: Unenhanced CT scan of the chest, abdomen, and pelvis was performed from the thoracic inlet to the proximal femora. Images are reviewed in the axial, sagittal, and coronal planes. IV contrast was not administered for this examination. Note that the examination is significantly suboptimal without IV contrast. The examinations are degraded by motion artifact. A dose lowering technique was utilized adhering to the principles of ALARA. CT DOSE: 1640.74 mGy.cm FINDINGS: CHEST: Thyroid: The thyroid gland is enlarged and heterogeneous. Thoracic aorta: There is atherosclerotic calcification of the thoracic aorta, which is normal in caliber and demonstrates standard 3-vessel arch anatomy. Heart: The heart is enlarged and without pericardial effusion. The coronary arteries are densely calcified. Lungs and pleural spaces: Evaluation of the lung parenchyma is compromised by motion artifact. No airspace consolidation, pleural effusion, or pneumothorax is identified. The trachea and central airways are clear. Dependent atelectasis is noted in both lungs. There are scattered calcified granulomas. Mediastinum: There is no mediastinal hematoma or lymphadenopathy. Xuan: Not well assessed without IV contrast. Axillae: There is no axillary lymphadenopathy. Bony thorax: The skeletal structures are osteopenic. No lytic or blastic lesions are identified. Degenerative change is noted in the shoulders and thoracic spine. ABDOMEN AND PELVIS: Liver: The unenhanced liver is normal in size, contour, and attenuation. There is no intrahepatic biliary ductal dilatation. Gallbladder: Unremarkable. Spleen: Normal in size and attenuation. Pancreas: The unenhanced pancreas is mildly atrophic and grossly unremarkable. Adrenal glands: Unremarkable. Kidneys: The unenhanced kidneys are atrophic and without hydronephrosis. No renal calculi are identified. A subcentimeter exophytic cyst is noted on the left. Abdominal vasculature: The abdominal aorta is normal in course and caliber noting advanced atherosclerotic calcification. Stomach and bowel: There is a small hiatal hernia. There is mild colonic diverticulosis without CT evidence of acute diverticulitis. No bowel obstruction is seen. The appendix is well-visualized and normal. Peritoneum: There is no intraperitoneal free air or abdominal ascites. Lymphadenopathy: None. Pelvic viscera: The bladder is decompressed and grossly unremarkable. The endometrium appears thickened and heterogeneous. No adnexal lesion is seen. There is asymmetric atrophy of the left iliopsoas musculature. Skeletal structures: The skeletal structures are osteopenic. There is moderate lumbosacral spondylosis with evidence of previous lumbar spinal surgery. The lumbosacral spine, bony pelvis, and proximal femora appear intact. Degenerative change is seen in the hips and sacroiliac joints. No lytic or blastic lesions are seen. IMPRESSION: 1. There is no acute posttraumatic intrathoracic abnormality. 2. There is no airspace consolidation, pleural effusion, or pneumothorax. 3. Cardiomegaly. 4. There is no evidence of solid organ injury in the abdomen or pelvis on this unenhanced examination. 5. The endometrium appears thickened and heterogeneous. This is not well assessed by CT. Nonemergent follow-up with gynecology and pelvic ultrasound is recommended for further assessment. 6. Additional findings as above. Code Status & VTE Plan VTE Prophylaxis Plan VTE Prophylaxis will be ordered: Yes
[2022-05-23] MEDS ORDERED: HEPARIN SOD (PORCINE) 1000 UNIT/ML IV ONE (11:48)
[2022-05-23] MEDS ORDERED: SODIUM CHLORIDE 0.9% 1000ML 1,000 ML IV PRN (11:48)
--- NOTE | 2022-05-23 11:54 | Nephrology Consultation ---
Date of Consultation May 23, 2022 Assessment & Plan (1) End-stage renal disease (ESRD): Patient with history of ESRD on dialysis TTS using right upper arm AV fistula. Last outpatient dialysis was on Friday. She has hyperkalemia and chest x-ray showing cardiomegaly with pulmonary vascular congestion. We will dialyze her today for 3 hours to get UF 3 L. We will use 2K bath. (2) UTI (urinary tract infection): UA suggestive of UTI. She is receiving Ceftriaxone per primary team History of Present Illness Reason for Consultation: ESRD Requesting Physician: Dr. Gutierrez Attending Physician: Dr. Gutierrez History of Present Illness This is 76-year-old female with history of type 2 diabetes, Parkinson's disease, COPD, RENÉ on CPAP, CHF on chronic home oxygen and ESRD on dialysis Friday who was admitted with weakness. Her last outpatient dialysis was on Friday. She could not go to outpatient dialysis today due to weakness. Patient also reported vomiting yesterday. She has mild shortness of breath. Chest x-ray showed cardiomegaly and pulmonary vascular congestion. Urinalysis is positive for possible UTI. Potassium is 5.2 this morning. She is receiving IV antibiotics per primary team for possible UTI. Urine and blood cultures are pending. She has a right upper arm AV fistula which has been working well. Allergies Allergy/AdvReac Type Severity Reaction Status Date / Time No Known Allergies Allergy Verified 04/19/22 09:17 Home Medications Medication Instructions Recorded Confirmed Type aspirin 81 mg tablet,delayed 162 mg PO QPM 11/15/21 05/23/22 History release atorvastatin 80 mg tablet 80 mg PO QPM 11/15/21 05/23/22 History calcium acetate(phosphat bind) 667 667 mg PO TID 11/15/21 05/23/22 History mg capsule carbidopa 25 mg-levodopa 100 mg 1 tab PO TIDM 11/15/21 05/23/22 History tablet cholecalciferol (vitamin D3) 125 125 mcg PO QPM 11/15/21 05/23/22 History mcg (5,000 unit) tablet (Vitamin D3) cyanocobalamin (vitamin B-12) 1,000 mcg PO QPM 11/15/21 05/23/22 History 1,000 mcg tablet (Vitamin B-12) docusate sodium 100 mg capsule 100 mg PO UD 11/15/21 05/23/22 History (Colace) isosorbide mononitrate 30 mg 30 mg PO QPM 11/15/21 05/23/22 History tablet,extended release 24 hr levothyroxine 125 mcg tablet 125 mcg PO QAM 11/15/21 05/23/22 History lidocaine-prilocaine 2.5 %-2.5 % 1 applic topical DIRECTED 11/15/21 05/23/22 History topical cream pregabalin 100 mg capsule 100 mg PO BID 11/15/21 05/23/22 History sertraline 100 mg tablet 100 mg PO QPM 11/15/21 05/23/22 History ferric citrate 210 mg iron tablet 210 mg PO TID 04/16/22 05/23/22 History (Auryxia) vitamin B complex-vitamin C-folic 1 tab PO QPM 04/16/22 05/23/22 History acid 0.8 mg tablet (Nanci-Samuel) pantoprazole 20 mg tablet,delayed 20 mg PO BID 05/23/22 05/23/22 History release Patient History Medical History Acute hypoxemic respiratory failure AMS (altered mental status) Aspiration pneumonia HX Chronic diastolic heart failure Depression Diabetes mellitus, type II NO MEDS Dyslipidemia Encephalopathy ESRD (end stage renal disease) on dialysis Generalized anxiety disorder History of anesthesia reaction "hard time waking up" History of COVID-19 ? early 2021- mild congestion, no hospitalization, no current issues History of stroke 2019- pts spouse poor historian HTN (hypertension) Hx: recurrent pneumonia Hypothyroidism RACHEL (iron deficiency anemia) Meniere's disease Morbid obesity Non-ST elevation NM (NSTEMI) pts spouse states it was "mild" does not follow w/ cardio- RENÉ on CPAP Parkinson disease Pleural effusion Restless leg syndrome Rheumatoid arthritis Subdural hematoma Surgical History H/O sinus surgery History of carpal tunnel surgery B/L History of orthopedic surgery " bilat heel surgery" History of tubal ligation Hx of arteriovenostomy for renal dialysis right arm Hx of total knee arthroplasty B/L Family History Other AAA (abdominal aortic aneurysm) Diabetes Family history non-contributory Hypertension Myotonic dystrophy Social History Smoking Status: Never smoker Cigarettes Per Day: 0.25ppd; Second Hand Exposure: No; Hx Alcohol Use: No Hx Substance Use: No Preferred Language: Danish Communication Ability: Effective Access Database Developer Required: No Beliefs That Will Affect Care: None marital status: Current Living Situation: Spouse Current Living Situation Comment: lives in home with and has caregivers Feels Safe at Home: Yes Assistive Devices: CPAP, Denture - Lower, Glasses, Hearing Aid - Bilateral and Wheelchair Review of Systems Review of Systems: All other systems were reviewed and negative except as noted in HPI Physical Exam Physical Exam: General exam: Appears comfortable, no acute distress HEENT: Pupils are equal and reactive to light. hard of hearing Neck: No JVD, neck is supple trachea is midline Respiratory system: Clear breath sounds bilaterally. Gastrointestinal: Abdomen is soft, non distended, non tender, bowel sounds are present CVS: Regular rate and rhythm. No murmurs, rubs or gallops Musculoskeletal: No joint or muscle tenderness Extremities: Non tender, no edema, peripheral pulses are present Neuro: Oriented, rest tremors, no focal neurological deficits Skin: No rashes Results & Data ([facility]) Vital Signs (Past 12 Hours) Vital Signs Temp Pulse Pulse Resp BP BP Pulse Ox 05/23/22 10:04 55 L 18 144/60 H 97 05/23/22 09:17 102 H 18 114/78 97 05/23/22 08:29 52 L 05/23/22 08:26 97 05/23/22 08:07 36.4 C L 54 L 16 155/60 H 97 O2 Del Method O2 Flow Rate 05/23/22 10:04 Nasal Cannula 2 05/23/22 09:17 Nasal Cannula 2 05/23/22 08:29 05/23/22 08:26 Nasal Cannula 2 05/23/22 08:07 Nasal Cannula 2 Laboratory Results 05/23/22 08:57 05/23/22 05/23/22 08:57 08:57 WBC 10.86 H RBC 3.46 L MCV 103.2 H MCH 31.8 MCHC 30.8 L RDW Std Deviation 79.8 H RDW Coeff of Bhavin 21.3 H Plt Count 254 MPV 11.3 Albumin 4.2 (2) UTI (urinary tract infection) Urinary tract infection type: acute cystitis Hematuria presence: with hematuria Qualified Code(s): N30.01 - Acute cystitis with hematuria
--- NOTE | 2022-05-23 12:45 | Electrocardiogram Report ---
Test Reason : Blood Pressure : / mmHG Vent. Rate : 057 BPM Atrial Rate : 057 BPM P-R Int : 176 ms QRS Dur : 148 ms QT Int : 486 ms P-R-T Axes : 070 052 066 degrees QTc Int : 473 ms Sinus bradycardia Left bundle branch block Abnormal ECG When compared with ECG of 15-NOV-2021 15:58, No significant change was found Confirmed by Cristhian Tanner ([id number]) on 05/23/2022 12:45:19 PM Referred By: REFERRED SELF Confirmed By:Cristhian Tanner
[2022-05-23] MEDS: HEPARIN SOD (PORCINE) 1000 UNIT/ML IV SCH (18:09)
[2022-05-23] MEDS ORDERED: ACETAMINOPHEN 325 MG TAB PO PRN (18:10)
[2022-05-23] MEDS: CYANOCOBALAMIN (B-12) 500 MCG TABLET PO SCH (20:50)
[2022-05-23] MEDS: ASPIRIN 81 MG ECTAB PO SCH (20:50)
[2022-05-23] MEDS: CALCIUM ACETATE 667 MG CAP/TAB PO SCH (20:50)
[2022-05-23] MEDS: ISOSORBIDE MONO EXTENDED REL 30 MG TABCR PO SCH (20:50)
[2022-05-23] MEDS: CHOLECALCIFEROL 5,000 UNITS 125 MCG TAB PO SCH (20:50)
[2022-05-23] MEDS: CARBIDOPA/LEVODOPA 25/100MG TAB PO SCH (20:50)
[2022-05-23] MEDS: PANTOprazole 40 MG TAB PO SCH (20:50)
[2022-05-23] MEDS: ATORVASTATIN 40 MG TAB PO SCH (20:51)
[2022-05-23] MEDS: HEPARIN SOD 5,000 UNIT/0.5 ML VIAL SQ SCH ×2 (20:51→23:10)
[2022-05-23] MEDS: SERTRALINE HCL 100 MG TABLET PO SCH (20:51)
[2022-05-23] MEDS: PREGABALIN 100 MG CAP PO SCH (21:19)
[2022-05-24] MEDS: HEPARIN SOD 5,000 UNIT/0.5 ML VIAL SQ SCH ×3 (05:12→21:14)
[2022-05-24 06:43] LABS: Hematocrit (blood only) 32.4 % (37.0-47.0); Hemoglobin 10.2 g/dl (12.0-16.0); Mean Corpuscular Hemoglobin 32.2 pg (25.0-34.0); Mean Corpuscular Hgb Conc 31.5 g/dL (32.0-36.0); Mean Corpuscular Volume 102.2 fL (80.0-100.0); Mean Platelet Volume 10.8 fL (9.4-12.4); Nucleated RBC # (auto) 0.05 K/uL (0-0.12); Nucleated RBC % (auto) 0.6 %; Platelet Count 229 K/uL (130-400); RDW Coefficient of Variation 21.1 % (11.5-14.5); RDW Standard Deviation 78.1 fL (36.4-46.3); Red Blood Count 3.17 M/uL (4.20-5.40); White Blood Count 8.42 K/ul (4.8-10.8)
[2022-05-24 07:05] LABS: Creatinine Clr Calc Pharmacy 8.3 ml/min; Est GFR (African American) 6.5 ml/min; Est GFR (Non-African American) 5.6 ml/min; Magnesium 2.2 mg/dl (1.7-2.4)
[2022-05-24] MEDS: PANTOprazole 40 MG TAB PO SCH ×2 (08:21→21:16)
[2022-05-24] MEDS: CALCIUM ACETATE 667 MG CAP/TAB PO SCH ×3 (08:21→17:12)
[2022-05-24] MEDS: CARBIDOPA/LEVODOPA 25/100MG TAB PO SCH ×3 (08:21→17:12)
[2022-05-24] MEDS: LEVOTHYROXINE SODIUM 125 MCG TABLET PO SCH (08:22)
[2022-05-24] MEDS: PREGABALIN 100 MG CAP PO SCH ×2 (08:23→21:19)
[2022-05-24] MEDS ORDERED: cefTRIAXone SODIUM 1,000 MG in DEXTROSE 5% AD-VAN 50 ML IV SCH (09:00)
[2022-05-24] MEDS ORDERED: DOCUSATE SODIUM 100 MG CAP PO SCH (09:00)
[2022-05-24 10:19] LABS: A calco-baum cmplx NotReported Not Detected (NotDetected); Bact fragilis Not Reported Not Detected (NotDetected); C auris Not Reported Not Detected (NotDetected); Calbicans Not Reported Not Detected (NotDetected); Candida glabrata Not Reported Not Detected (NotDetected); Candida krusei Not Reported Not Detected (NotDetected); Cneoformans/gatti Not Reported Not Detected (NotDetected); Cparapsilosis Not Reported Not Detected (NotDetected); Ctropicalis Not Reported Not Detected (NotDetected); E cloacae compx Not Reported Not Detected (NotDetected); Efaecalis Not Reported Not Detected (NotDetected); Efaecium Not Reported Not Detected (NotDetected); Enterobacterales Not Reported Not Detected (NotDetected); Escherichia coli Not Reported Not Detected (NotDetected); H influenzae Not Reported Not Detected (NotDetected); K aerogenes Not Reported Not Detected (NotDetected); Koxytoca Not Reported Not Detected (NotDetected); Kpneumoniae grp Not Reported Not Detected (NotDetected); Lmonocyt Not Reported Not Detected (NotDetected); N meningitidis Not Reported Not Detected (NotDetected); P aeruginosa Not Reported Not Detected (NotDetected); Proteus spp Not Reported Not Detected (NotDetected); Salmonella spp Not Reported Not Detected (NotDetected); Smarcescens Not Reported Not Detected (NotDetected); Staph lugdunensis Not Reported Not Detected (NotDetected); Staph spp. Not Reported DETECTED (NotDetected); Staphaureus Not Reported Not Detected (NotDetected); Staphepi Not Reported Not Detected (NotDetected); Stenmaltophilia Not Reported Not Detected (NotDetected); Strep agal(GrpB) Not Reported Not Detected (NotDetected); Strep pneum Not Reported Not Detected (NotDetected); Strep pyog (GrpA) Not Reported Not Detected (NotDetected); Strep spp Not Reported Not Detected (NotDetected)
[2022-05-24 10:30] LABS: Staphylococcus spp. DETECTED (NotDetected)
--- NOTE | 2022-05-24 11:38 | Nephrology Progress Note ---
Date of Service May 24, 2022 Assessment & Plan (1) End-stage renal disease (ESRD): Plan: Patient with history of ESRD on dialysis TTS using right upper arm AV fistula. Last outpatient dialysis was on Friday. Admitted with hyperkalemia and chest x-ray showing cardiomegaly with pulmonary vascular congestion. She had dialysis yesterday for 3 hours and net UF of about 2 L. We will dialyze her again tomorrow for 3.5 hours to get UF 2.5 L. We will use 2K bath. (2) UTI (urinary tract infection): Plan: UA suggestive of UTI. She is receiving Ceftriaxone per primary team (3) Bacteremia: Plan: Blood cultures growing gram-positive cocci in clusters. Patient is on ceftriaxone. She might need coverage for MRSA with vancomycin. Admission and Anticipated Discharge Date Admission Date: May 23, 2022 Subjective Seen for ESRD. She had dialysis yesterday. She feels well today. No shortness of breath. Blood cultures growing gram-positive cocci Review of Systems Review of Systems: All other systems were reviewed and negative except as noted in HPI Physical Exam Physical Exam: General exam: Appears comfortable, no acute distress HEENT: Pupils are equal and reactive to light. hard of hearing Neck: No JVD, neck is supple trachea is midline Respiratory system: Clear breath sounds bilaterally. Gastrointestinal: Abdomen is soft, non distended, non tender, bowel sounds are present CVS: Regular rate and rhythm. No murmurs, rubs or gallops Musculoskeletal: No joint or muscle tenderness Extremities: Non tender, no edema, peripheral pulses are present Neuro: Oriented, rest tremors, no focal neurological deficits Skin: No rashes Results & Data ([facility]) Vital Signs (Past 12 Hours) Vital Signs Temp Pulse Pulse Resp BP Pulse Ox O2 Del Method 05/24/22 08:00 Nasal Cannula 05/24/22 07:29 61 05/24/22 07:19 36.3 C L 59 L 16 113/55 L 95 Nasal Cannula 05/24/22 04:13 36.7 C 65 20 99/53 L 92 Nasal Cannula 05/24/22 00:07 36.7 C 59 L 20 109/64 95 Nasal Cannula O2 Flow Rate 05/24/22 08:00 2 05/24/22 07:29 05/24/22 07:19 2 05/24/22 04:13 2 05/24/22 00:07 2 Laboratory Results 05/24/22 05:37 05/24/22 05:37 WBC 8.42 RBC 3.17 L MCV 102.2 H MCH 32.2 MCHC 31.5 L RDW Std Deviation 78.1 H RDW Coeff of Bhavin 21.1 H Plt Count 229 MPV 10.8 (2) UTI (urinary tract infection) Urinary tract infection type: acute cystitis Hematuria presence: with hematuria Qualified Code(s): N30.01 - Acute cystitis with hematuria
[2022-05-24] MEDS: cefTRIAXone SODIUM 2,000 MG in DEXTROSE 5% 50 ML IV SCH (12:40)
--- NOTE | 2022-05-24 13:14 | Hospitalist Progress Note ---
Date of Service May 24, 2022 Assessment & Plan (1) Abdominal pain: (2) Nausea: (3) Generalized weakness: Plan: Nausea, vomiting, abdominal pain Generalized weakness. Suspected UTI Rule out Bacteremia --CT ABD:There is no acute posttraumatic intrathoracic abnormality. There is no airspace consolidation, pleural effusion, or pneumothorax. Cardiomegaly. There is no evidence of solid organ injury in the abdomen or pelvis on this unenhanced examination. The endometrium appears thickened and heterogeneous. This is not well assessed by CT. Nonemergent follow-up with gynecology and pelvic ultrasound is recommended for further assessment. -- Urine culture growing gram-negative bacilli --Blood culture 03/20: Gram-positive cocci in clusters--Likely Contamination --Biofire negative for mec A/C and MREJ resistance genes We will repeat blood cultures tomorrow Continue empiric Rocephin For precautions PT OT eval Elevated troponin Likely due to ESRD EKG show old LBBB Denies angina symptoms Heterogenous endometrial thickening Incidental finding on CT CT as above Needs follow-up with KNIFE SETTER ASSEMBLER as outpatient (4) End-stage renal disease (ESRD): Plan: Dialysis as per Nephrology Appreciate Nephrology Input (5) Chronic diastolic heart failure: Plan: Continue home medications (6) Parkinson disease: Plan: Continue sinemet RENÉ Continue CPAP HS DVT Px Heparin SQ CODE STATUS DNI/DNR Admission and Anticipated Discharge Date Admission Date: May 23, 2022 Subjective Patient is seen and examined at bedside Poor historian secondary to significant hearing impairment Initially admits to have dysuria, later denies Eager to get discharged Denies any chest pain, dyspnea, dizziness No other complaints Review of Systems Review of Systems: All systems reviewed & are unremarkable except as noted in Subjective Physical Exam Physical Exam: Physical Exam: Vitals signs as noted above General Appearance:Obese, no apparent distress Head: normocephalic, Atraumatic Eyes: normal inspection, EOMI Neck: supple, Trachea midline Respiratory/Chest: Normal breath sounds, CTA, No accessory muscle use Cardiovascular: S1, S2, No murmur Abdomen/GI:Soft, Non tender, Bowel sounds present Extremities/Musculoskeletal:normal inspection, no edema Neurologic/Psych:AAOX3, grossly no focal neurological deficits, +significant Hearing impairment Skin: normal color, warm Results & Data Results & Data ([facility]) Vital Signs (Past 12 Hours) Vital Signs Temp Pulse Pulse Resp BP Pulse Ox O2 Del Method 05/24/22 11:54 36.6 C 57 L 16 136/58 L 95 Nasal Cannula 05/24/22 08:00 Nasal Cannula 05/24/22 07:29 61 05/24/22 07:19 36.3 C L 59 L 16 113/55 L 95 Nasal Cannula 05/24/22 04:13 36.7 C 65 20 99/53 L 92 Nasal Cannula O2 Flow Rate 05/24/22 11:54 2 05/24/22 08:00 2 05/24/22 07:29 05/24/22 07:19 2 05/24/22 04:13 2 Laboratory Results Short CBC 05/24/22 Range/Units 05:37 WBC 8.42 (4.8-10.8) K/ul Hgb 10.2 L (12.0-16.0) g/dl Hct 32.4 L (37.0-47.0) % Plt Count 229 (130-400) K/uL BMP 05/24/22 05:37 Sodium 139 Potassium 4.0 D Chloride 98 Carbon Dioxide 35 H BUN 20 Creatinine 6.63 H* D Glucose 92 Calcium 9.0
[2022-05-24] MEDS: SERTRALINE HCL 100 MG TABLET PO SCH (21:14)
[2022-05-24] MEDS: ISOSORBIDE MONO EXTENDED REL 30 MG TABCR PO SCH (21:15)
[2022-05-24] MEDS: ATORVASTATIN 40 MG TAB PO SCH (21:16)
[2022-05-24] MEDS: CYANOCOBALAMIN (B-12) 500 MCG TABLET PO SCH (21:17)
[2022-05-24] MEDS: CHOLECALCIFEROL 5,000 UNITS 125 MCG TAB PO SCH (21:17)
[2022-05-24] MEDS: ASPIRIN 81 MG ECTAB PO SCH (21:17)
[2022-05-25] MEDS: HEPARIN SOD 5,000 UNIT/0.5 ML VIAL SQ SCH ×4 (04:51→20:40)
[2022-05-25 06:59] LABS: Hematocrit (blood only) 32.9 % (37.0-47.0); Hemoglobin 10.2 g/dl (12.0-16.0); Mean Corpuscular Hemoglobin 31.6 pg (25.0-34.0); Mean Corpuscular Volume 101.9 fL (80.0-100.0); Mean Platelet Volume 10.9 fL (9.4-12.4); Nucleated RBC # (auto) 0.02 K/uL (0-0.12); Nucleated RBC % (auto) 0.3 %; Platelet Count 250 K/uL (130-400); RDW Coefficient of Variation 20.7 % (11.5-14.5); RDW Standard Deviation 75.8 fL (36.4-46.3); Red Blood Count 3.23 M/uL (4.20-5.40); White Blood Count 7.58 K/ul (4.8-10.8)
[2022-05-25] MEDS ORDERED: SODIUM CHLORIDE 0.9% 1000ML 1,000 ML IV PRN (07:00)
[2022-05-25] MEDS ORDERED: HEPARIN SOD (PORCINE) 1000 UNIT/ML IV ONE (07:00)
[2022-05-25 07:32] LABS: BUN Creatinine Ratio 3.6 (10-20); Calcium 9.4 mg/dl (8.5-10.1); Est GFR (African American) 4.4 ml/min; Est GFR (Non-African American) 3.8 ml/min; Magnesium 2.4 mg/dl (1.7-2.4); Potassium 4.3 mmol/L (3.5-5.1)
[2022-05-25] MEDS: PANTOprazole 40 MG TAB PO SCH ×2 (08:15→20:32)
[2022-05-25] MEDS: CARBIDOPA/LEVODOPA 25/100MG TAB PO SCH ×3 (08:15→18:12)
[2022-05-25] MEDS: LEVOTHYROXINE SODIUM 125 MCG TABLET PO SCH (08:15)
[2022-05-25] MEDS: CALCIUM ACETATE 667 MG CAP/TAB PO SCH ×3 (08:16→18:12)
[2022-05-25] MEDS: PREGABALIN 100 MG CAP PO SCH ×2 (08:19→20:31)
--- NOTE | 2022-05-25 09:59 | Nephrology Progress Note ---
Date of Service May 25, 2022 Assessment & Plan (1) End-stage renal disease (ESRD): Plan: Patient with history of ESRD on dialysis TTS using right upper arm AV fistula. Last outpatient dialysis was on Friday. Admitted with hyperkalemia and chest x-ray showing cardiomegaly with pulmonary vascular congestion. She had dialysis on for 3 hours and net UF of about 2 L. We will dialyze her today for 3.5 hours to get UF 2.5 L. We will use 2K bath. (2) UTI (urinary tract infection): Plan: UA suggestive of UTI. Abx as per primary team (3) Bacteremia: Plan: Blood cultures growing gram-positive cocci in clusters. Patient is on ceftriaxone. . Admission and Anticipated Discharge Date Admission Date: May 23, 2022 Subjective Patient is seen and examined in dialysis unit Poor historian secondary to significant hearing impairment Denies any chest pain, dyspnea, dizziness No other complaints Review of Systems Review of Systems: All other systems were reviewed and negative except as noted in HPI Physical Exam Physical Exam: General exam: Appears comfortable, no acute distress HEENT: Pupils are equal and reactive to light Neck: No JVD, neck is supple trachea is midline Respiratory system: Clear breath sounds bilaterally Gastrointestinal: Abdomen is soft, non distended, non tender, bowel sounds are present CVS: Regular rate and rhythm. No murmurs, rubs or gallops Musculoskeletal: No joint or muscle tenderness Extremities: Non tender, no edema, peripheral pulses are present Results & Data ([facility]) Vital Signs (Past 12 Hours) Vital Signs Temp Pulse Pulse Resp BP Pulse Ox O2 Del Method 05/25/22 08:40 Nasal Cannula 05/25/22 07:41 36.5 C 57 L 18 123/57 L 96 Nasal Cannula 05/25/22 07:29 57 L 05/25/22 02:52 36.7 C 58 L 18 146/70 H 93 Nasal Cannula 05/24/22 22:23 55 L 05/24/22 22:24 36.6 C 53 L 16 107/56 L 96 Nasal Cannula O2 Flow Rate 05/25/22 08:40 2 05/25/22 07:41 2 05/25/22 07:29 05/25/22 02:52 2 05/24/22 22:23 05/24/22 22:24 2 Laboratory Results 05/25/22 06:28 05/25/22 06:28 (2) UTI (urinary tract infection) Urinary tract infection type: acute cystitis Hematuria presence: with hematuria Qualified Code(s): N30.01 - Acute cystitis with hematuria
[2022-05-25] MEDS: HEPARIN SOD (PORCINE) 1000 UNIT/ML IV SCH ×2 (13:40→13:41)
[2022-05-25] MEDS: cefTRIAXone SODIUM 2,000 MG in DEXTROSE 5% 50 ML IV SCH (14:01)
--- NOTE | 2022-05-25 17:01 | Hospitalist Progress Note ---
Date of Service May 25, 2022 Assessment & Plan (1) Abdominal pain: (2) Nausea: (3) Generalized weakness: Plan: Nausea, vomiting, abdominal pain Generalized weakness. UTI-POA Rule out Bacteremia --CT ABD:There is no acute posttraumatic intrathoracic abnormality. There is no airspace consolidation, pleural effusion, or pneumothorax. Cardiomegaly. There is no evidence of solid organ injury in the abdomen or pelvis on this unenhanced examination. The endometrium appears thickened and heterogeneous. This is not well assessed by CT. Nonemergent follow-up with gynecology and pelvic ultrasound is recommended for further assessment. -- Urine culture growing E. Coli --Blood culture 03/20: Coagulase-negative staph--Likely Contamination --Biofire negative for mec A/C and MREJ resistance genes --Repeat blood cultures pending Continue Rocephin For precautions PT OT eval Continue current management Elevated troponin Likely due to ESRD EKG show old LBBB Denies angina symptoms Heterogenous endometrial thickening Incidental finding on CT CT as above Needs follow-up with RADIATION CONTROL SPECIALIST as outpatient (4) End-stage renal disease (ESRD): Plan: Dialysis as per Nephrology Appreciate Nephrology Input (5) Chronic diastolic heart failure: Plan: Continue home medications (6) Parkinson disease: Plan: Continue sinemet RENÉ Continue CPAP HS DVT Px Heparin SQ CODE STATUS DNI/DNR Admission and Anticipated Discharge Date Admission Date: May 23, 2022 Subjective Patient is seen and examined at bedside Poor historian secondary to significant hearing impairment Having Dialysis during my encounter No complaints today Denies any chest pain, dyspnea, dizziness, nausea, abd apin Review of Systems Review of Systems: All systems reviewed & are unremarkable except as noted in Subjective Physical Exam Physical Exam: Physical Exam: Vitals signs as noted above General Appearance:Obese, no apparent distress Head: normocephalic, Atraumatic Eyes: normal inspection, EOMI Neck: supple, Trachea midline Respiratory/Chest: Normal breath sounds, CTA, No accessory muscle use Cardiovascular: S1, S2, No murmur Abdomen/GI:Soft, Non tender, Bowel sounds present Extremities/Musculoskeletal:normal inspection, no edema Neurologic/Psych:AAOX3, grossly no focal neurological deficits, +significant Hearing impairment Skin: normal color, warm Results & Data Results & Data ([facility]) Vital Signs (Past 12 Hours) Vital Signs Temp Pulse Pulse Pulse Resp BP BP 05/25/22 15:58 63 05/25/22 15:33 36.5 C 61 18 97/62 L 05/25/22 13:35 36.5 C 49 L 110/58 L 05/25/22 13:00 50 L 125/48 L 05/25/22 12:30 58 L 125/40 L 05/25/22 12:00 56 L 109/60 05/25/22 11:30 61 115/54 L 05/25/22 11:10 57 L 107/45 L 05/25/22 11:00 57 L 96/56 L 05/25/22 10:30 55 L 128/43 L 05/25/22 10:00 56 L 117/59 L 05/25/22 09:42 54 L 128/63 05/25/22 09:30 36.8 C 56 L 05/25/22 08:40 05/25/22 07:41 36.5 C 57 L 18 123/57 L 05/25/22 07:29 57 L Pulse Ox O2 Del Method O2 Flow Rate 05/25/22 15:58 05/25/22 15:33 95 Nasal Cannula 2 05/25/22 13:35 05/25/22 13:00 05/25/22 12:30 05/25/22 12:00 05/25/22 11:30 05/25/22 11:10 05/25/22 11:00 05/25/22 10:30 05/25/22 10:00 05/25/22 09:42 05/25/22 09:30 05/25/22 08:40 Nasal Cannula 2 05/25/22 07:41 96 Nasal Cannula 2 05/25/22 07:29 Laboratory Results Short CBC 05/25/22 Range/Units 06:28 WBC 7.58 (4.8-10.8) K/ul Hgb 10.2 L (12.0-16.0) g/dl Hct 32.9 L (37.0-47.0) % Plt Count 250 (130-400) K/uL BMP 05/25/22 06:28 Sodium 138 Potassium 4.3 Chloride 97 L Carbon Dioxide 32 BUN 33 H Creatinine 9.22 H* D Glucose 94 Calcium 9.4
[2022-05-25] MEDS: ATORVASTATIN 40 MG TAB PO SCH (20:32)
[2022-05-25] MEDS: CHOLECALCIFEROL 5,000 UNITS 125 MCG TAB PO SCH (20:32)
[2022-05-25] MEDS: SERTRALINE HCL 100 MG TABLET PO SCH (20:32)
[2022-05-25] MEDS: CYANOCOBALAMIN (B-12) 500 MCG TABLET PO SCH (20:33)
[2022-05-25] MEDS: ASPIRIN 81 MG ECTAB PO SCH (20:33)
[2022-05-25] MEDS: ISOSORBIDE MONO EXTENDED REL 30 MG TABCR PO SCH (20:33)
[2022-05-25] MEDS ORDERED: ALBUMIN 25% 100 mL 25 GM/100 ML VIAL IV ONE (23:03)
[2022-05-26] MEDS: HEPARIN SOD 5,000 UNIT/0.5 ML VIAL SQ SCH ×2 (05:15→14:23)
[2022-05-26] MEDS: PANTOprazole 40 MG TAB PO SCH (08:19)
[2022-05-26] MEDS: CARBIDOPA/LEVODOPA 25/100MG TAB PO SCH ×2 (08:20→12:35)
[2022-05-26] MEDS: LEVOTHYROXINE SODIUM 125 MCG TABLET PO SCH (08:20)
[2022-05-26] MEDS: CALCIUM ACETATE 667 MG CAP/TAB PO SCH ×2 (08:20→12:35)
[2022-05-26] MEDS: PREGABALIN 100 MG CAP PO SCH (08:22)
[2022-05-26 08:52] LABS: BUN Creatinine Ratio 2.8 (10-20); Calcium 9.3 mg/dl (8.5-10.1); Creatinine Clr Calc Pharmacy 9.1 ml/min; Est GFR (African American) 7.2 ml/min; Est GFR (Non-African American) 6.2 ml/min; Potassium 4.3 mmol/L (3.5-5.1)
[2022-05-26] MEDS: cefTRIAXone SODIUM 2,000 MG in DEXTROSE 5% 50 ML IV SCH (12:34)
--- NOTE | 2022-05-26 13:50 | Hospitalist Progress Note ---
Date of Service May 26, 2022 Assessment & Plan (1) Abdominal pain: (2) Nausea: (3) Generalized weakness: Plan: Nausea, vomiting, abdominal pain Generalized weakness. UTI-POA Rule out Bacteremia --CT ABD:There is no acute posttraumatic intrathoracic abnormality. There is no airspace consolidation, pleural effusion, or pneumothorax. Cardiomegaly. There is no evidence of solid organ injury in the abdomen or pelvis on this unenhanced examination. The endometrium appears thickened and heterogeneous. This is not well assessed by CT. Nonemergent follow-up with gynecology and pelvic ultrasound is recommended for further assessment. -- Urine culture growing E. Coli --Blood culture 03/20: Coagulase-negative staph--Likely Contamination --Biofire negative for mec A/C and MREJ resistance genes --Repeat blood cultures no growth to date Continue Rocephin>> transition to p.o. antibiotics upon discharge For precautions PT OT eval Plan to discharge home today Elevated troponin Likely due to ESRD EKG show old LBBB Denies angina symptoms Heterogenous endometrial thickening Incidental finding on CT CT as above Needs follow-up with MACHINE II ENGRAVER as outpatient (4) End-stage renal disease (ESRD): Plan: Dialysis as per Nephrology Appreciate Nephrology Input (5) Chronic diastolic heart failure: Plan: Continue home medications (6) Parkinson disease: Plan: Continue sinemet RENÉ Continue CPAP HS DVT Px Heparin SQ CODE STATUS DNI/DNR Admission and Anticipated Discharge Date Admission Date: May 23, 2022 Subjective Patient is seen and examined at bedside Poor historian secondary to significant hearing impairment States feeing well No complaints Discussed with patient's over the phone Denies any chest pain, dyspnea, dizziness, nausea, abdominal pain, dysuria Plan to discharge home today Review of Systems Review of Systems: All systems reviewed & are unremarkable except as noted in Subjective Physical Exam Physical Exam: Physical Exam: Vitals signs as noted above General Appearance:Obese, no apparent distress Head: normocephalic, Atraumatic Eyes: normal inspection, EOMI Neck: supple, Trachea midline Respiratory/Chest: Normal breath sounds, CTA, No accessory muscle use Cardiovascular: S1, S2, No murmur Abdomen/GI:Soft, Non tender, Bowel sounds present Extremities/Musculoskeletal:normal inspection, no edema Neurologic/Psych:AAOX3, grossly no focal neurological deficits, +significant Hearing impairment Skin: normal color, warm Results & Data Results & Data ([facility]) Vital Signs (Past 12 Hours) Vital Signs Temp Pulse Pulse Resp BP Pulse Ox O2 Del Method 05/26/22 11:45 36.5 C 59 L 18 118/58 L 95 Nasal Cannula 05/26/22 08:23 Nasal Cannula 05/26/22 07:48 36.5 C 55 L 18 115/75 94 Nasal Cannula 05/26/22 07:17 66 05/26/22 03:02 36.7 C 68 16 110/59 L 95 Nasal Cannula 05/26/22 00:58 125/60 O2 Flow Rate 05/26/22 11:45 2 05/26/22 08:23 2 05/26/22 07:48 2 05/26/22 07:17 05/26/22 03:02 2 05/26/22 00:58 Laboratory Results [facility] 05/26/22 06:59 Sodium 141 Potassium 4.3 Chloride 99 Carbon Dioxide 32 BUN 17 Creatinine 6.06 H* D Glucose 96 Calcium 9.3
--- NOTE | 2022-05-26 14:06 | Discharge Summary ---
Date of Service May 26, 2022 Admission HPI Per Admitting Provider 76-year-old old woman with history of DM type II, hypothyroidism, RENÉ on CPAP, morbid obesity, Parkinson's disease, end-stage renal disease on hemodialysis and other medical problems who was brought in for generalized weakness abdominal pain and vomiting. History provided by patient and . reported that symptoms started yesterday. Stated that patient was weaker than usual. At baseline, she usually able to use the left to get from bed to power chair. She moves around with a power chair. However, yesterday she was so weak that she could not even hold herself up with the left and slid out of the ground. reported she was too weak to hold the lift so she slid to the ground. Denied any trauma or hitting the head, LOC. also reported that she vomited yesterday and slept for almost 15 hours from yesterday afternoon until this morning. Patient denied any fevers, chills. Acknowledges nausea and vomiting. None at this time. Reports abdominal pain that is more central and lower abdomen. Denied any diarrhea. Patient still makes urine. Denies any dysuria, frequency, urgency. Denies any new cough. reports she usually coughs occasionally and putting up CPAP but nothing out of the ordinary. Denies any shortness of breath at rest. Denies chest pain, palpitations. Admission Exam Per Admitting Provider Physical Exam Constitutional: + well hydrated and + obese; no acute distress Eyes: PERRL, conjunctivae normal, anicteric sclerae ENMT: external ear and nose normal, oropharynx normal Has significant hearing deficits [hearing aid not available at this time] Respiratory: normal respiratory effort, lungs clear to auscultation Cardiovascular: Rate/Rhythm: regular rhythm and + bradycardic S1-S2 Gastrointestinal (Abdomen): normal bowel sounds, soft, nontender, no hepatosplenomegaly Musculoskeletal: No pedal edema Skin:I Bruise on low back (site of fall per ) Neurologic: PERRL, EOMI, accommodation nl, no face palsy, no dysarthria Psychiatric: A+Ox3, euthymic affect Genitourinary: No CVA tenderness Principal Diagnosis Urinary tract infection End-stage renal disease Endometrial thickening Discharge Data Allergies Allergy/AdvReac Type Severity Reaction Status Date / Time No Known Allergies Allergy Verified 04/19/22 09:17 Consultations 05/23/22 11:49 Consult Nephrology Stat Procedures Performed Laboratory Results WBC 7.58 K/ul (4.8-10.8) 05/25/22 06:28 RBC 3.23 M/uL (4.20-5.40) L 05/25/22 06:28 Hgb 10.2 g/dl (12.0-16.0) L 05/25/22 06:28 Hct 32.9 % (37.0-47.0) L 05/25/22 06:28 MCV 101.9 fL (80.0-100.0) H 05/25/22 06:28 MCH 31.6 pg (25.0-34.0) 05/25/22 06:28 MCHC 31.0 g/dL (32.0-36.0) L 05/25/22 06:28 RDW Std Deviation 75.8 fL (36.4-46.3) H 05/25/22 06:28 RDW Coeff of Bhavin 20.7 % (11.5-14.5) H 05/25/22 06:28 Plt Count 250 K/uL (130-400) 05/25/22 06:28 MPV 10.9 fL (9.4-12.4) 05/25/22 06:28 Immature Gran % (Auto) 2.0 % 05/23/22 08:57 Neut % (Auto) 69.6 % 05/23/22 08:57 Lymph % (Auto) 12.7 % 05/23/22 08:57 Lake % (Auto) 9.1 % 05/23/22 08:57 Eos % (Auto) 5.2 % 05/23/22 08:57 Baso % (Auto) 1.4 % 05/23/22 08:57 Neut # (Auto) 7.56 K/uL (1.40-6.50) H 05/23/22 08:57 Lymph # (Auto) 1.38 K/uL (1.2-3.4) 05/23/22 08:57 Lake # (Auto) 0.99 K/uL (0.11-0.59) H 05/23/22 08:57 Eos # (Auto) 0.56 K/uL (0-0.50) H 05/23/22 08:57 Baso # (Auto) 0.15 K/uL (0-0.2) 05/23/22 08:57 Immature Gran # (Auto) 0.22 K/uL (0.01-0.20) H 05/23/22 08:57 Absolute Nucleated RBC 0.02 K/uL (0-0.12) 05/25/22 06:28 Nucleated RBC % (auto) 0.3 % 05/25/22 06:28 Polychromasia 1+ 05/23/22 08:57 Anisocytosis Present 05/23/22 08:57 PT 10.1 Seconds (9.0-12.0) 05/23/22 08:57 INR 0.9 (0.9-1.1) 05/23/22 08:57 Sodium 141 mmol/L (136-145) 05/26/22 06:59 Potassium 4.3 mmol/L (3.5-5.1) 05/26/22 06:59 Chloride 99 mmol/L (98-107) 05/26/22 06:59 Carbon Dioxide 32 mmol/L (21-32) 05/26/22 06:59 Anion Gap 10 (3-11) 05/26/22 06:59 BUN 17 mg/dl (6-23) 05/26/22 06:59 Creatinine 6.06 mg/dl (0.6-1.2) H* D 05/26/22 06:59 Est Cr Clr Drug Dosing 9.1 ml/min 05/26/22 06:59 Est GFR ( Amer) 7.2 ml/min 05/26/22 06:59 Est GFR (Non-Af Amer) 6.2 ml/min 05/26/22 06:59 BUN/Creatinine Ratio 2.8 (10-20) L 05/26/22 06:59 Glucose 96 mg/dl (70-99(Fasting)) 05/26/22 06:59 Lactate 1.4 mmol/L (0.4-2.0) 05/25/22 23:41 Calcium 9.3 mg/dl (8.5-10.1) 05/26/22 06:59 Magnesium 2.4 mg/dl (1.7-2.4) 05/25/22 06:28 Total Bilirubin 0.3 mg/dl (0.2-1.0) 05/23/22 08:57 AST 32 U/L (13-39) 05/23/22 08:57 ALT 7 U/L (7-52) 05/23/22 08:57 Alkaline Phosphatase 76 U/L (34-104) 05/23/22 08:57 Troponin I High Sens 53.7 pg/ml (0-14) H* 05/24/22 00:30 Total Protein 7.3 gm/dl (6.0-8.3) 05/23/22 08:57 Albumin 4.2 gm/dl (3.4-5.0) 05/23/22 08:57 Globulin 3.1 gm/dl (2.5-4.0) 05/23/22 08:57 Albumin/Globulin Ratio 1.4 (0.9-2) 05/23/22 08:57 TSH 1.065 uIu/ml (0.300-4.500) 05/23/22 08:57 Urine Color Dark Yellow 05/23/22 08:44 Urine Appearance Turbid (Clear) A 05/23/22 08:44 Urine pH 8.5 (4.5-7.5) H 05/23/22 08:44 Ur Specific [place] 1.010 (1.000-1.030) 05/23/22 08:44 Urine Protein 3+ (Negative) H 05/23/22 08:44 Urine Glucose (UA) Negative (Negative) 05/23/22 08:44 Urine Ketones Negative (Negative) 05/23/22 08:44 Urine Blood 3+ (Negative) H 05/23/22 08:44 Urine Nitrite Negative (Negative) 05/23/22 08:44 Urine Bilirubin Negative (Negative) 05/23/22 08:44 Urine Urobilinogen Negative (Negative) 05/23/22 08:44 Ur Leukocyte Esterase 3+ (Negative) H 05/23/22 08:44 Urine WBC (Auto) >30 /hpf (0-5) H 05/23/22 08:44 Urine RBC (Auto) 5-10 /hpf (0-4) H 05/23/22 08:44 U Hyaline Cast (Auto) 0 /lpf (0-5) 05/23/22 08:44 U Epithel Cells (Auto) >30 /lpf (0-5) H 05/23/22 08:44 Urine Bacteria (Auto) 4+ (Negative) H 05/23/22 08:44 Urine Yeast Not Reportable 05/23/22 08:44 SARS-CoV-2, RNA, NAAT NEGATIVE (NEGATIVE) 05/23/22 08:30 Staphylococcus sp PCR DETECTED (NotDetected) A 05/23/22 11:57 Bld Cult ID Panel PCR See PCR Comment (NotDetected) 05/23/22 11:57 Impressions Chest X-Ray 05/23/22 08:22 XR chest 1V portable HISTORY: 76 years-old Female weakness acute weakness COMPARISON: Chest CT of same day TECHNIQUE: AP view of the chest FINDINGS: Cardiac silhouette is enlarged. No pneumothorax, pleural effusion or airspace consolidation. Pulmonary vascular congestion with mild bibasilar atelectasis. Degenerative changes of the shoulders and spine. IMPRESSION: Cardiomegaly with pulmonary vascular congestion. ACT 112: Negative or not required by law. The above report was generated using voice recognition software. It may contain grammatical, syntax or spelling errors. Electronically signed by: Benito Stiles M.D. 05/23/2022 9:26 AM Abdomen/Pelvis CT 05/23/22 08:23 CT SCAN OF THE CHEST, ABDOMEN, AND PELVIS WITHOUT IV CONTRAST CLINICAL HISTORY: Fall. COMPARISON STUDY: Chest x-ray dated 05/23/2022. Chest CT dated 01/30/2020. Abdominal CT dated 11/10/2019. TECHNIQUE: Unenhanced CT scan of the chest, abdomen, and pelvis was performed from the thoracic inlet to the proximal femora. Images are reviewed in the axial, sagittal, and coronal planes. IV contrast was not administered for this examination. Note that the examination is significantly suboptimal without IV c ontrast. The examinations are degraded by motion artifact. A dose lowering technique was utilized adhering to the principles of ALARA. CT DOSE: 1640.74 mGy.cm FINDINGS: CHEST: Thyroid: The thyroid gland is enlarged and heterogeneous. Thoracic aorta: There is atherosclerotic calcification of the thoracic aorta, which is normal in caliber and demonstrates standard 3-vessel arch anatomy. Heart: The heart is enlarged and without pericardial effusion. The coronary arteries are densely calcified. Lungs and pleural spaces: Evaluation of the lung parenchyma is compromised by motion artifact. No airspace consolidation, pleural effusion, or pneumothorax is identified. The trachea and central airways are clear. Dependent atelectasis is noted in both lungs. There are scattered calcified granulomas. Mediastinum: There is no mediastinal hematoma or lymphadenopathy. Xuan: Not well assessed without IV contrast. Axillae: There is no axillary lymphadenopathy. Bony thorax: The skeletal structures are osteopenic. No lytic or blastic lesions are identified. Degenerative change is noted in the shoulders and thoracic spine. ABDOMEN AND PELVIS: Liver: The unenhanced liver is normal in size, contour, and attenuation. There is no intrahepatic biliary ductal dilatation. Gallbladder: Unremarkable. Spleen: Normal in size and attenuation. Pancreas: The unenhanced pancreas is mildly atrophic and grossly unremarkable. Adrenal glands: Unremarkable. Kidneys: The unenhanced kidneys are atrophic and without hydronephrosis. No renal calculi are identified. A subcentimeter exophytic cyst is noted on the left. Abdominal vasculature: The abdominal aorta is normal in course and caliber noting advanced atherosclerotic calcification. Stomach and bowel: There is a small hiatal hernia. There is mild colonic diverticulosis without CT evidence of acute diverticulitis. No bowel obstruction is seen. The appendix is well-visualized and normal. Peritoneum: There is no intraperitoneal free air or abdominal ascites. Lymphadenopathy: None. Pelvic viscera: The bladder is decompressed and grossly unremarkable. The endometrium appears thickened and heterogeneous. No adnexal lesion is seen. There is asymmetric atrophy of the left iliopsoas musculature. Skeletal structures: The skeletal structures are osteopenic. There is moderate lumbosacral spondylosis with evidence of previous lumbar spinal surgery. The lumbosacral spine, bony pelvis, and proximal femora appear intact. Degenerative change is seen in the hips and sacroiliac joints. No lytic or blastic lesions are seen. IMPRESSION: 1. There is no acute posttraumatic intrathoracic abnormality. 2. There is no airspace consolidation, pleural effusion, or pneumothorax. 3. Cardiomegaly. 4. There is no evidence of solid organ injury in the abdomen or pelvis on this unenhanced examination. 5. The endometrium appears thickened and heterogeneous. This is not well assessed by CT. Nonemergent follow-up with gynecology and pelvic ultrasound is recommended for further assessment. 6. Additional findings as above. ACT 112: Negative or not required by law. Electronically signed by: Deep Smith M.D. 05/23/2022 9:[address] 05/23/22 08:23 CT SCAN OF THE CHEST, ABDOMEN, AND PELVIS WITHOUT IV CONTRAST CLINICAL HISTORY: Fall. COMPARISON STUDY: Chest x-ray dated 05/23/2022. Chest CT dated 01/30/2020. Abdominal CT dated 11/10/2019. TECHNIQUE: Unenhanced CT scan of the chest, abdomen, and pelvis was performed from the thoracic inlet to the proximal femora. Images are reviewed in the axial, sagittal, and coronal planes. IV contrast was not administered for this examination. Note that the examination is significantly suboptimal without IV contrast. The examinations are degraded by motion artifact. A dose lowering technique was utilized adhering to the principles of ALARA. CT DOSE: 1640.74 mGy.cm FINDINGS: CHEST: Thyroid: The thyroid gland is enlarged and heterogeneous. Thoracic aorta: There is atherosclerotic calcification of the thoracic aorta, which is normal in caliber and demonstrates standard 3-vessel arch anatomy. Heart: The heart is enlarged and without pericardial effusion. The coronary arteries are densely calcified. Lungs and pleural spaces: Evaluation of the lung parenchyma is compromised by motion artifact. No airspace consolidation, pleural effusion, or pneumothorax is identified. The trachea and central airways are clear. Dependent atelectasis is noted in both lungs. There are scattered calcified granulomas. Mediastinum: There is no mediastinal hematoma or lymphadenopathy. Xuan: Not well assessed without IV contrast. Axillae: There is no axillary lymphadenopathy. Bony thorax: The skeletal structures are osteopenic. No lytic or blastic lesions are identified. Degenerative change is noted in the shoulders and thoracic spine. ABDOMEN AND PELVIS: Liver: The unenhanced liver is normal in size, contour, and attenuation. There is no intrahepatic biliary ductal dilatation. Gallbladder: Unremarkable. Spleen: Normal in size and attenuation. Pancreas: The unenhanced pancreas is mildly atrophic and grossly unremarkable. Adrenal glands: Unremarkable. Kidneys: The unenhanced kidneys are atrophic and without hydronephrosis. No renal calculi are identified. A subcentimeter exophytic cyst is noted on the left. Abdominal vasculature: The abdominal aorta is normal in course and caliber noting advanced atherosclerotic calcification. Stomach and bowel: There is a small hiatal hernia. There is mild colonic diverticulosis without CT evidence of acute diverticulitis. No bowel obstruction is seen. The appendix is well-visualized and normal. Peritoneum: There is no intraperitoneal free air or abdominal ascites. Lymphadenopathy: None. Pelvic viscera: The bladder is decompressed and grossly unremarkable. The endometrium appears thickened and heterogeneous. No adnexal lesion is seen. There is asymmetric atrophy of the left iliopsoas musculature. Skeletal structures: The skeletal structures are osteopenic. There is moderate lumbosacral spondylosis with evidence of previous lumbar spinal surgery. The lumbosacral spine, bony pelvis, and proximal femora appear intact. Degenerative change is seen in the hips and sacroiliac joints. No lytic or blastic lesions are seen. IMPRESSION: 1. There is no acute posttraumatic intrathoracic abnormality. 2. There is no airspace consolidation, pleural effusion, or pneumothorax. 3. Cardiomegaly. 4. There is no evidence of solid organ injury in the abdomen or pelvis on this unenhanced examination. 5. The endometrium appears thickened and heterogeneous. This is not well assessed by CT. Nonemergent follow-up with gynecology and pelvic ultrasound is recommended for further assessment. 6. Additional findings as above. ACT 112: Negative or not required by law. Electronically signed by: Deep Smith M.D. 05/23/2022 9:46 AM Ordered Studies 05/23/22 08:23 CT abd pelvis wo con Stat CT chest diagnostic wo con Stat Hospital Course (1) Abdominal pain: (2) Nausea: (3) Generalized weakness: Nausea, vomiting, abdominal pain Generalized weakness. UTI-POA Rule out Bacteremia --CT ABD:There is no acute posttraumatic intrathoracic abnormality. There is no airspace consolidation, pleural effusion, or pneumothorax. Cardiomegaly. There is no evidence of solid organ injury in the abdomen or pelvis on this unenhanced examination. The endometrium appears thickened and heterogeneous. This is not well assessed by CT. Nonemergent follow-up with gynecology and pelvic ultrasound is recommended for further assessment. -- Urine culture growing E. Coli --Blood culture 03/20: Coagulase-negative staph--Likely Contamination --Biofire negative for mec A/C and MREJ resistance genes --Repeat blood cultures no growth to date Continue Rocephin>> transition to p.o. antibiotics upon discharge For precautions PT OT eval Plan to discharge home today Elevated troponin Likely due to ESRD EKG show old LBBB Denies angina symptoms Heterogenous endometrial thickening Incidental finding on CT CT as above Needs follow-up with SPECIALIST PHYSICIAN as outpatient (4) End-stage renal disease (ESRD): Dialysis as per Nephrology Appreciate Nephrology Input (5) Chronic diastolic heart failure: Continue home medications (6) Parkinson disease: Continue sinemet RENÉ Continue CPAP HS DVT Px Heparin SQ CODE STATUS DNI/DNR Total Time Total Time Spent Total Time Spent (In Minutes): 50 minutes Discharge Plan Discharge Items Patient Disposition: Home - Self-Care Reason For Visit: POSSIBLE UTI Discharge Diagnosis: Urinary tract infection End-stage renal disease Endometrial thickening Activity: Per Instructions section Exercise/Sports: Gradually increase as tolerated Non-emergency contact: Primary Care Provider and 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 Darek Rubio on 05/28/2022 3:40 PM Follow-up with your SPECIALIST PHYSICIAN doctor for further evaluation of endometrial thickening as advised. Follow-up with your senior speech pathologist for dialysis. --- Complete antibiotic course cefuroxime to 250 mg daily for urinary tract infection. Please take the antibiotic after the dialysis on dialysis days. (Start taking from 05/27/2022) --- Your final blood culture results are pending at the time of discharge. Follow-up with your physician for results. Seek immediate medical attention if your symptoms reoccur or worsen Please take all medications as instructed on discharge list below. Please call if you have any questions or problems. You can reach a [facility] hospitalist on duty at [facility] 24 hours a day by calling [phone] Pending Studies at Discharge: Yes Studies:: Blood culture Stand-Alone Forms: My [facility] [employer], Smoking Cessation Medications and DC Order Prescriptions: New cefuroxime axetil 250 mg Tablet 250 mg PO DAILY Qty: 5 0RF Continued atorvastatin 80 mg tablet 80 mg PO QPM isosorbide mononitrate 30 mg tablet extended release 24 hr 30 mg PO QPM sertraline 100 mg tablet 100 mg PO QPM cyanocobalamin (vitamin B-12) [Vitamin B-12] 1,000 mcg Tablet 1,000 mcg PO QPM aspirin 81 mg Tablet,Delayed Release (Dr/Ec) 162 mg PO QPM lidocaine-prilocaine 2.5-2.5 % cream 1 applic topical DIRECTED Rx Instructions: Apply small amount to access site 1 hr before dialysis. levothyroxine 125 mcg tablet 125 mcg PO QAM docusate sodium [Colace] 100 mg Capsule 100 mg PO UD Rx Instructions: 3 times per week carbidopa-levodopa 25-100 mg tablet 1 tab PO TIDM calcium acetate(phosphat bind) 667 mg capsule 667 mg PO TID pregabalin 100 mg capsule 100 mg PO BID cholecalciferol (vitamin D3) [Vitamin D3] 125 mcg (5,000 unit) Tablet 125 mcg PO QPM Auryxia 210 mg iron Tablet 210 mg PO TID Rx Instructions: administer with a meal Nanic-Samuel 0.8 mg Tablet 1 tab PO QPM pantoprazole 20 mg tablet,delayed release (DR/EC) 20 mg PO BID Discharge Orders: Discharge Order (Routine); Ordered 05/26/22 Ordered By: Marito Gu Admission Data Admit Date/Time: 05/23/22 11:19 Attending Provider: Marito Gu Admit Provider: Betty Gutierrez I. Primary Care Provider: Bella Villanueva Other Providers: Kevin Bruce
[2022-05-27] MEDS ORDERED: cefUROXime axetil 250 MG TABLET PO SCH (09:00)
== END 2022-05-26 15:15 | disposition home or self-care (01) | DRG 689 ==
LOC: ED 08:01 → SUATTDRO 11:19 → 2N 14:36

== ENCOUNTER 2022-09-05 17:29 | Inpatient (IN) ==
[2022-09-05] MEDS ORDERED: SODIUM CHLORIDE 0.9% 1000ML 500 ML IV ONE (17:51)
--- NOTE | 2022-09-05 17:54 | Emergency Department Note ---
Impression & Plan Acute GI bleeding, Anemia, Decubitus ulcer ED Provider Note NAME: CHESTER FRENCH AGE: 76 SEX: F : 1945 ARRIVES VIA: Walk-In INFORMANT: Patient, ED PROVIDER(S): Angel Srinivasan DO CHIEF COMPLAINT: Leg ulcers HPI: The patient is a 76-year-old female who presented to the emergency department for an evaluation of leg ulcers and ulcers on her buttocks as well as ongoing GI issues such as rectal bleeding. The patient has a history of being on dialysis. She was sent by her family doctor for further evaluation. She presented with her . ROS: See above HPI for pertinent positives & negatives. A total of 10 systems reviewed and were otherwise negative. PAST MEDICAL HISTORY: See Below PAST SURGICAL HISTORY: See Below FAMILY HISTORY: See Below SOCIAL HISTORY: See Below HOME MEDICATIONS: See Below ALLERGIES: See Below VITALS: See Below PHYSICAL EXAMINATION: GENERAL: Patient is awake alert in no acute distress patient is resting comfortably and showing no signs of anxiety EYES: The conjunctivae are clear. The pupils are round and reactive. EARS, NOSE, MOUTH AND THROAT: The nose is without any evidence of any deformity. NECK: The neck is nontender and supple. RESPIRATORY: Normal respiratory effort is noted there is no evidence of wheezing rhonchi or rales CARDIOVASCULAR: Regular rate and rhythm noted there no murmurs rubs or gallops normal S1 normal S2. GASTROINTESTINAL: The abdomen is soft. Abdomen is nontender. MUSCULOSKELETAL/EXTREMITIES: There is no evidence of gross deformity full range of motion is noted in the hips and shoulders. SKIN: There is no significant pedal edema. Skin is warm and dry. There was erythema and excoriation around the perineum in the posterior upper thighs. There is no signs of drainage. NEUROLOGIC: Patient is awake alert and oriented x3 MEDICAL DECISION MAKING: The patient is a 76-year-old female who presented to the emergency department at the request of her primary care physician's office. The patient's been having ongoing problems with anemia and GI bleeding as well as ulcers on her thighs. Her appears to be doing a really good job of managing these ulcers. He has been putting cream on them. There is no overt signs of cellulitis however given the patient's findings she was felt to be high risk for outpatient management. Her primary care physician did call head and requested that she be kept in the hospital for further management as well as prepping for 3. She is scheduled for an outpatient colonoscopy as well as a hysteroscopy very soon. The patient was treated with IV fluids. She does not appear to be septic. Triage Nursing notes reviewed. Prior medical records reviewed Vital Signs: reviewed and remarkable for no significant abnormalities Differential diagnosis: Cellulitis, abscess, MRSA infection, DVT, necrotizing fasciitis, dermatitis, drug eruption, allergic reaction, as well as other pathologies. ER treatment provided: See below Diagnostics interpreted by me: ECG: EKG was obtained in the emergency department. My interpretation is sinus rhythm at 69 bpm. Left bundle branch block pattern was favored. PVCs were noted. This was compared to a tracing from May 23, 2022. The ectopy is new otherwise no significant changes were noted. Cardiac Monitoring: An order was placed for continuous cardiac monitoring. The monitor shows a rate of 72 bpm with sinus rhythm. Laboratory studies: As stated above and show below. Imaging studies: See below. Radiographic imaging was reviewed by myself Consultation(s): I discussed this case with Dr. Shea who is on-call for the [facility] hospitalist group. Past Med/Surg History Medical History Aspiration pneumonia HX Black stools Chronic diastolic heart failure COPD (chronic obstructive pulmonary disease) no medications for currently Depression Diabetes mellitus, type II hx / NO MEDS Difficult intravenous access Dyslipidemia ESRD (end stage renal disease) on dialysis tues, thur & sat ([place]) Generalized anxiety disorder GI problem esophagus/stomach inflammed on most recent endoscopy in apr 2022/ reason for upcoming procedure to f/u History of anesthesia reaction "hard time waking up" History of COVID-19 ? early 2021- mild congestion, no hospitalization, no current issues History of recent hospitalization may 2022 - [facility] - resolved History of stroke 2019- pts spouse poor historian pt denies hx stroke KOTZEBUE (hard of hearing) HTN (hypertension) Hx: recurrent pneumonia Hypothyroidism RACHEL (iron deficiency anemia) Meniere's disease Mobility impaired pt non compliant with hx pt treatments / PT IS IN WHEELCHAIR/TOTAL ASSIST Morbid obesity Non-ST elevation NV (NSTEMI) pt spouse not sure/ mild ? remembers something mentioned in hx/ ? details RENÉ on CPAP Parkinson disease Poor short term memory Restless leg syndrome Rheumatoid arthritis ? current status/no meds for Subdural hematoma hx fall 2020 - tx to [facility]/no surgical intervention Surgical History H/O sinus surgery History of carpal tunnel surgery B/L History of orthopedic surgery " bilat heel surgery" History of tubal ligation Hx of arteriovenostomy for renal dialysis right arm Hx of total knee arthroplasty B/L Family History Other AAA (abdominal aortic aneurysm) Diabetes Family history non-contributory Hypertension Myotonic dystrophy Social History Smoking Status: Never smoker Cigarettes Per Day: 0.25ppd; Second Hand Exposure: No; Do You Dip or Chew Tobacco: No; Hx Substance Use: No Preferred Language: Maltese Communication Ability: Effective Communication Ability Comment: PT SOMETIMES DOESN'T UNDERSTAND INFO/ SOMETIMES SIGNS CONSENTS/KOTZEBUE Superintendent [place] Required: No Beliefs That Will Affect Care: None marital status: Current Living Situation: Spouse Current Living Situation Comment: AND 2 DOGS Feels Safe at Home: Yes Assistive Devices: CPAP, Glasses and Hearing Aid - Bilateral Allergies Allergies Allergy/AdvReac Type Severity Reaction Status Date / Time No Known Allergies Allergy Verified 09/05/22 19:18 Home Meds Home Medications Medication Instructions Recorded Confirmed aspirin 81 mg tablet,delayed 162 mg PO QPM 11/15/21 09/05/22 release atorvastatin 80 mg tablet 80 mg PO QPM 11/15/21 09/05/22 calcium acetate(phosphat bind) 667 667 mg PO TID 11/15/21 09/05/22 mg capsule carbidopa 25 mg-levodopa 100 mg 1 tab PO TIDM 11/15/21 09/05/22 tablet cholecalciferol (vitamin D3) 125 125 mcg PO QPM 11/15/21 09/05/22 mcg (5,000 unit) tablet (Vitamin D3) docusate sodium 100 mg capsule 100 mg PO Q2D 11/15/21 09/05/22 (Colace) isosorbide mononitrate 30 mg 30 mg PO QPM 11/15/21 09/05/22 tablet,extended release 24 hr levothyroxine 125 mcg tablet 125 mcg PO QAM 11/15/21 09/05/22 lidocaine-prilocaine 2.5 %-2.5 % 1 applic topical DIRECTED PRN 1 11/15/21 09/05/22 topical cream HR PRIOR TO DIALYSIS pregabalin 100 mg capsule 100 mg PO BID 11/15/21 09/05/22 sertraline 100 mg tablet 100 mg PO QPM 11/15/21 09/05/22 ferric citrate 210 mg iron tablet 210 mg PO TID 04/16/22 09/05/22 (Auryxia) vitamin B complex-vitamin C-folic 1 tab PO QPM 04/16/22 09/05/22 acid 0.8 mg tablet (Nanci-Samuel) pantoprazole 20 mg tablet,delayed 20 mg PO BID 05/23/22 09/05/22 release acetaminophen 325 mg tablet 650 mg PO Q6H PRN Pain 09/05/22 09/05/22 (Tylenol) epinephrine 0.3 mg/0.3 mL 0.3 mg IM DIRECTED PRN Allergic 09/05/22 09/05/22 injection, auto-injector (EpiPen) Reaction hydrocortisone 2.5 % topical cream 1 applic ME DAILY PRN Hemorrhoids 09/05/22 09/05/22 with perineal applicator meclizine 12.5 mg tablet 12.5 mg PO TID PRN Dizziness 09/05/22 09/05/22 melatonin 10 mg tablet 10 mg PO HS 09/05/22 09/05/22 Results & Data (ED) Vital Signs Vital Signs - 24 hr 09/05/22 17:32 09/05/22 18:27 09/05/22 18:53 Temperature 36.5 C Temperature Source Oral Pulse Rate 106 H 68 Pulse Rate [Left Apical] 70 Pulse Rhythm Regular Pulse Strength Normal Respiratory Rate 18 20 Blood Pressure 105/43 L Blood Pressure [Left Arm] 111/59 L Blood Pressure Mean 63 Blood Pressure Mean [Left Arm] 76 Blood Pressure Position Sitting Pulse Oximetry 95 93 Oxygen Delivery Method Room Air Sepsis Recent Fever Within 48 Hours No Sepsis New/Unexplained Change in Mental Status No Sepsis Action Taken by Nursing No Action Required 09/05/22 18:54 09/05/22 19:32 Temperature Temperature Source Pulse Rate 72 Pulse Rate [Left Apical] Pulse Rhythm Pulse Strength Respiratory Rate 14 Blood Pressure 141/51 H Blood Pressure [Left Arm] Blood Pressure Mean 81 Blood Pressure Mean [Left Arm] Blood Pressure Position Pulse Oximetry 93 94 Oxygen Delivery Method Room Air Sepsis Recent Fever Within 48 Hours Sepsis New/Unexplained Change in Mental Status Sepsis Action Taken by Snf Medications Current Medication List: was personally reviewed by me Laboratory Data Attestation: I reviewed the patient's lab results. 09/05/22 17:51 09/05/22 17:51 Lab Results 09/05/22 09/05/22 09/05/22 Range/Units 17:51 17:51 17:51 WBC 10.29 (4.8-10.8) K/ul RBC 2.74 L (4.20-5.40) M/uL Hgb 8.6 L (12.0-16.0) g/dl Hct 28.6 L (37.0-47.0) % MCV 104.4 H (80.0-100.0) fL MCH 31.4 (25.0-34.0) pg MCHC 30.1 L (32.0-36.0) g/dL RDW Std Deviation 72.4 H (36.4-46.3) fL RDW Coeff of Bhavin 19.1 H (11.5-14.5) % Plt Count 311 (130-400) K/uL MPV 10.4 (9.4-12.4) fL Immature Gran % (Auto) 1.9 % Neut % (Auto) 69.7 % Lymph % (Auto) 12.2 % Cedar % (Auto) 11.9 % Eos % (Auto) 3.2 % Baso % (Auto) 1.1 % Neut # (Auto) 7.17 H (1.40-6.50) K/uL Lymph # (Auto) 1.26 (1.2-3.4) K/uL Cedar # (Auto) 1.22 H (0.11-0.59) K/uL Eos # (Auto) 0.33 (0-0.50) K/uL Baso # (Auto) 0.11 (0-0.2) K/uL Immature Gran # (Auto) 0.20 (0.01-0.20) K/uL Absolute Nucleated RBC 0.06 (0-0.12) K/uL Nucleated RBC % (auto) 0.6 % PT Cancelled INR Cancelled APTT Cancelled PTT Ratio Cancelled Sodium 136 (136-145) mmol/L Potassium 4.5 (3.5-5.1) mmol/L Chloride 96 L (98-107) mmol/L Carbon Dioxide 29 (21-32) mmol/L Anion Gap 11 (3-11) BUN 18 (6-23) mg/dl Creatinine 4.13 H (0.6-1.2) mg/dl Est Cr Clr Drug Dosing Not Reportable Est GFR ( Amer) 11.5 ml/min Est GFR (Non-Af Amer) 9.9 ml/min BUN/Creatinine Ratio 4.4 L (10-20) Glucose 101 H (70-99(Fasting)) mg/dl Lactate (0.4-2.0) mmol/L Calcium 8.6 (8.6-10.3) mg/dl Magnesium 1.9 (1.7-2.4) mg/dl Total Bilirubin 0.2 (0.2-1.0) mg/dl Direct Bilirubin TNP AST 31 (13-39) U/L ALT 8 (7-52) U/L Alkaline Phosphatase 72 (34-104) U/L Troponin I High Sens 11.9 (0-14) pg/ml Total Protein 7.3 (6.0-8.3) gm/dl Albumin 4.0 (3.4-5.0) gm/dl Procalcitonin (0-0.5) ng/ml Blood Type Antibody Screen 09/05/22 09/05/22 09/05/22 Range/Units 17:51 17:51 18:41 WBC (4.8-10.8) K/ul RBC (4.20-5.40) M/uL Hgb (12.0-16.0) g/dl Hct (37.0-47.0) % MCV (80.0-100.0) fL MCH (25.0-34.0) pg MCHC (32.0-36.0) g/dL RDW Std Deviation (36.4-46.3) fL RDW Coeff of Bhavin (11.5-14.5) % Plt Count (130-400) K/uL MPV (9.4-12.4) fL Immature Gran % (Auto) % Neut % (Auto) % Lymph % (Auto) % Cedar % (Auto) % Eos % (Auto) % Baso % (Auto) % Neut # (Auto) (1.40-6.50) K/uL Lymph # (Auto) (1.2-3.4) K/uL Cedar # (Auto) (0.11-0.59) K/uL Eos # (Auto) (0-0.50) K/uL Baso # (Auto) (0-0.2) K/uL Immature Gran # (Auto) (0.01-0.20) K/uL Absolute Nucleated RBC (0-0.12) K/uL Nucleated RBC % (auto) % PT INR APTT PTT Ratio Sodium (136-145) mmol/L Potassium (3.5-5.1) mmol/L Chloride (98-107) mmol/L Carbon Dioxide (21-32) mmol/L Anion Gap (3-11) BUN (6-23) mg/dl Creatinine (0.6-1.2) mg/dl Est Cr Clr Drug Dosing Est GFR ( Amer) ml/min Est GFR (Non-Af Amer) ml/min BUN/Creatinine Ratio (10-20) Glucose (70-99(Fasting)) mg/dl Lactate 2.0 (0.4-2.0) mmol/L Calcium (8.6-10.3) mg/dl Magnesium (1.7-2.4) mg/dl Total Bilirubin (0.2-1.0) mg/dl Direct Bilirubin AST (13-39) U/L ALT (7-52) U/L Alkaline Phosphatase (34-104) U/L Troponin I High Sens (0-14) pg/ml Total Protein (6.0-8.3) gm/dl Albumin (3.4-5.0) gm/dl Procalcitonin 1.14 H (0-0.5) ng/ml Blood Type O Positive Antibody Screen NEGATIVE Administered Medications Discontinued Medications Sodium Chloride (Nss 1000ml) 500 mls @ 999 mls/hr IV .Q31M ONE Stop: 09/05/22 18:21 Last Admin: 09/05/22 19:37 Dose: 999 mls/hr Documented By: NRB Imaging Data Attestation: I personally reviewed and interpreted this imaging study as follows: My Impression: 1 view chest x-ray was obtained in the emergency department. My interpretation is no free air or definite infiltrate, cardiomegaly was noted, this was compared to a chest x-ray from May 23, 2022. No significant changes were noted. Final report pending Discharge Plan Visit Data Chief Complaint: Referred by Doctor Stated Complaint: REF BY DOC, ED Provider: Angel Srinivasan Discharge Problem: Acute GI bleeding, Anemia, Decubitus ulcer Patient Disposition: Being Evaluated by Hospitalist Forms Stand Alone Forms: My [facility] Prescriptions Prescriptions: No Action atorvastatin 80 mg tablet 80 mg PO QPM isosorbide mononitrate 30 mg tablet extended release 24 hr 30 mg PO QPM sertraline 100 mg tablet 100 mg PO QPM aspirin 81 mg Tablet,Delayed Release (Dr/Ec) 162 mg PO QPM Patient Comments: afternoon hours lidocaine-prilocaine 2.5-2.5 % cream 1 applic topical DIRECTED PRN (Reason: 1 HR PRIOR TO DIALYSIS) Rx Instructions: Apply small amount to access site 1 hr before dialysis. levothyroxine 125 mcg tablet 125 mcg PO QAM docusate sodium [Colace] 100 mg Capsule 100 mg PO Q2D Rx Instructions: 3 times per week carbidopa-levodopa 25-100 mg tablet 1 tab PO TIDM calcium acetate(phosphat bind) 667 mg capsule 667 mg PO TID pregabalin 100 mg capsule 100 mg PO BID Patient Comments: on dialysis days takes 2 in the evening , , and saturdays Rx Instructions: MAY TAKE AN EXTRA DOSE AFTER DIALYSIS IF NEEDED. cholecalciferol (vitamin D3) [Vitamin D3] 125 mcg (5,000 unit) Tablet 125 mcg PO QPM Auryxia 210 mg iron Tablet 210 mg PO TID Rx Instructions: administer with a meal Nanci-Samuel 0.8 mg Tablet 1 tab PO QPM pantoprazole 20 mg tablet,delayed release (DR/EC) 20 mg PO BID acetaminophen [Tylenol] 325 mg Tablet 650 mg PO Q6H PRN (Reason: Pain) meclizine 12.5 mg Tablet 12.5 mg PO TID PRN (Reason: Dizziness) hydrocortisone 2.5 % Cream With Perineal Applicator 1 applic ME DAILY PRN (Reason: Hemorrhoids) epinephrine [EpiPen] 0.3 mg/0.3 mL Auto-Injector 0.3 mg IM DIRECTED PRN (Reason: Allergic Reaction) melatonin 10 mg Tablet 10 mg PO HS Referrals Referrals: Bella Villanueva MD [Primary Care Provider] -
[2022-09-05 19:10] LABS: Basophils # (auto) 0.11 K/uL (0-0.2); Basophils % (auto) 1.1 %; Eosinophils # (auto) 0.33 K/uL (0-0.50); Eosinophils % (auto) 3.2 %; Hematocrit (blood only) 28.6 % (37.0-47.0); Hemoglobin 8.6 g/dl (12.0-16.0); Immature Granulocytes % (auto) 1.9 %; Lymphocytes # (auto) 1.26 K/uL (1.2-3.4); Lymphocytes % (auto) 12.2 %; Mean Corpuscular Hemoglobin 31.4 pg (25.0-34.0); Mean Corpuscular Hgb Conc 30.1 g/dL (32.0-36.0); Mean Corpuscular Volume 104.4 fL (80.0-100.0); Mean Platelet Volume 10.4 fL (9.4-12.4); Monocytes # (auto) 1.22 K/uL (0.11-0.59); Monocytes % (auto) 11.9 %; Neutrophils # (auto) 7.17 K/uL (1.40-6.50); Neutrophils % (auto) 69.7 %; Nucleated RBC # (auto) 0.06 K/uL (0-0.12); Nucleated RBC % (auto) 0.6 %; Platelet Count 311 K/uL (130-400); RDW Coefficient of Variation 19.1 % (11.5-14.5); RDW Standard Deviation 72.4 fL (36.4-46.3); Red Blood Count 2.74 M/uL (4.20-5.40); White Blood Count 10.29 K/ul (4.8-10.8)
[2022-09-05 19:52] LABS: Alanine Aminotransferase 8 U/L (7-52); Alkaline Phosphatase 72 U/L (34-104); Anion Gap 11 (3-11); Aspartate Aminotransferase 31 U/L (13-39); BUN Creatinine Ratio 4.4 (10-20); Bilirubin,Total 0.2 mg/dl (0.2-1.0); Blood Urea Nitrogen 18 mg/dl (6-23); Calcium 8.6 mg/dl (8.6-10.3); Carbon Dioxide 29 mmol/L (21-32); Chloride 96 mmol/L (98-107); Est GFR (African American) 11.5 ml/min; Est GFR (Non-African American) 9.9 ml/min; Glucose 101 mg/dl (70-99(Fasting)); Magnesium 1.9 mg/dl (1.7-2.4); Potassium 4.5 mmol/L (3.5-5.1); Sodium 136 mmol/L (136-145); Total Protein 7.3 gm/dl (6.0-8.3)
[2022-09-05 20:13] LABS: Troponin I High Sensitivity 11.9 pg/ml (0-14)
[2022-09-05 21:18] LABS: INR 0.9 (0.9-1.1); Partial Thromboplastin Time 28.6 Seconds (21.0-31.0)
--- NOTE | 2022-09-05 21:30 | History & Physical Report ---
Date of Service September 05, 2022 Assessment & Plan (1) Cellulitis of sacral region: Plan: Patient was sent to the ED after her dialysis session for evaluation of multiple wounds on her buttocks Per , patient was diagnosed with fungal infection by the visiting nurse and he is keeping the area dry with improvement. On examination, no significant ulceration seen. Erythema present suggestive of fungal infection, unable to rule out bacterial s superimposed infection No leukocytosis present Started on nystatin powder twice daily. Started on ceftriaxone to cover for bacterial superimposed infection. Wound consult Obtain ESR, CRP PT OT evaluation Plan Other conditions; Anemia; Patient has been recently evaluated for anemia by GI and gynecology. Patient was noted to have thickened endometrium on sonogram. Patient is planned to be admitted a day prior to September 20 for colonoscopy(to be done by Dr. Winston) and D&C with hysteroscopy ( by Dr. Castanon) Hemoglobin stable at 8.6. will consider consultation with GI or gynecology if patient has significant vaginal or rectal bleeding. CBC in a.m. ESRD on hemodialysis: Consult nephrology for comanagement. Next hemodialysis in on Friday if patient continues to be hospitalized. Type 2 diabetes mellitus; not on any medications A1c of 5.3 in May 2022. Monitor glucose Hypothyroidism; continue levothyroxine. Parkinson's disease; continue Sinemet GERD; continue on pantoprazole DVT prophylaxis heparin DNR/DNI Time spent evaluating patient, direct bedside care, chart review, placing orders, interpretation of diagnostic studies, discussion with consultants, patient, and family members, as well as other required patient management activities is 80 minutes. Please note the above document was generated using voice recognition software. It may contain grammatical, syntax or spelling errors. Any formal questions or concerns about the content, text or information contained within the body of this dictation should be directly addressed to the provider for clarification History of Present Illness Chief Complaint: Concern for sacral ulcer/cellulitis. Primary Care Provider: Bella Villanueva MD History obtained from chart review, interview with patient and her . Past medical history of type 2 diabetes mellitus, hypothyroidism, COPD, ESRD on hemodialysis, anemia, rheumatoid arthritis. Patient was sent to the ED after her dialysis session for evaluation of multiple wounds on her buttocks by Dr. Busby (nephrology) Patient has been had noted redness in her perineal region several weeks ago; was advised to dry the area by visiting nurse. He reports that it has been improving. Patient denies fever, chills or any purulent discharge from the wound. Patient is wheelchair-bound and requires family medicine physician assistant by her for most of her ADLs. Patient has been recently evaluated for anemia by GI and gynecology. Patient was noted to have thickened endometrium on sonogram. Patient is planned to be admitted a day prior to September 20 for colonoscopy(to be done by Dr. Winston) and D&C with hysteroscopy ( by Dr. Castanon) On presentation to the ED, patient was afebrile, normotensive and saturating well in room air. CBC remarkable for anemia with hemoglobin at 8.6. No leukocytosis. Creatinine elevated consistent with ESRD. Lactate 2.0. Chest x-ray personally reviewed; no infiltrates. EKG personally reviewed; normal sinus rhythm with left bundle branch block and PVCs. Allergies Allergy/AdvReac Type Severity Reaction Status Date / Time No Known Allergies Allergy Verified 09/05/22 19:18 Home Medications Medication Instructions Recorded Confirmed Type aspirin 81 mg tablet,delayed 162 mg PO QPM 11/15/21 09/05/22 History release atorvastatin 80 mg tablet 80 mg PO QPM 11/15/21 09/05/22 History calcium acetate(phosphat bind) 667 667 mg PO TID 11/15/21 09/05/22 History mg capsule carbidopa 25 mg-levodopa 100 mg 1 tab PO TIDM 11/15/21 09/05/22 History tablet cholecalciferol (vitamin D3) 125 125 mcg PO QPM 11/15/21 09/05/22 History mcg (5,000 unit) tablet (Vitamin D3) docusate sodium 100 mg capsule 100 mg PO Q2D 11/15/21 09/05/22 History (Colace) isosorbide mononitrate 30 mg 30 mg PO QPM 11/15/21 09/05/22 History tablet,extended release 24 hr levothyroxine 125 mcg tablet 125 mcg PO QAM 11/15/21 09/05/22 History lidocaine-prilocaine 2.5 %-2.5 % 1 applic topical DIRECTED PRN 1 11/15/21 09/05/22 History topical cream HR PRIOR TO DIALYSIS pregabalin 100 mg capsule 100 mg PO BID 11/15/21 09/05/22 History sertraline 100 mg tablet 100 mg PO QPM 11/15/21 09/05/22 History ferric citrate 210 mg iron tablet 210 mg PO TID 04/16/22 09/05/22 History (Auryxia) vitamin B complex-vitamin C-folic 1 tab PO QPM 04/16/22 09/05/22 History acid 0.8 mg tablet (Nanci-Samuel) pantoprazole 20 mg tablet,delayed 20 mg PO BID 05/23/22 09/05/22 History release acetaminophen 325 mg tablet 650 mg PO Q6H PRN Pain 09/05/22 09/05/22 History (Tylenol) epinephrine 0.3 mg/0.3 mL 0.3 mg IM DIRECTED PRN Allergic 09/05/22 09/05/22 History injection, auto-injector (EpiPen) Reaction hydrocortisone 2.5 % topical cream 1 applic [place] DAILY PRN Hemorrhoids 09/05/22 09/05/22 History with perineal applicator meclizine 12.5 mg tablet 12.5 mg PO TID PRN Dizziness 09/05/22 09/05/22 History melatonin 10 mg tablet 10 mg PO HS 09/05/22 09/05/22 History Past Med/Surg History Medical History Aspiration pneumonia HX Black stools Chronic diastolic heart failure COPD (chronic obstructive pulmonary disease) no medications for currently Depression Diabetes mellitus, type II hx / NO MEDS Difficult intravenous access Dyslipidemia ESRD (end stage renal disease) on dialysis tubl[facility], maile & sat ([facility]) Generalized anxiety disorder GI problem esophagus/stomach inflammed on most recent endoscopy in apr 2022/ reason for upcoming procedure to f/u History of anesthesia reaction "hard time waking up" History of COVID-19 ? early 2021- mild congestion, no hospitalization, no current issues History of recent hospitalization may 2022 - uti/mnmc - resolved History of stroke 2019- pts spouse poor historian pt denies hx stroke [place] (hard of hearing) HTN (hypertension) Hx: recurrent pneumonia Hypothyroidism RACHEL (iron deficiency anemia) Meniere's disease Mobility impaired pt non compliant with hx pt treatments / PT IS IN WHEELCHAIR/TOTAL ASSIST Morbid obesity Non-ST elevation MT (NSTEMI) pt spouse not sure/ mild ? remembers something mentioned in hx/ ? details RENÉ on CPAP Parkinson disease Poor short term memory Restless leg syndrome Rheumatoid arthritis ? current status/no meds for Subdural hematoma hx fall 2019 - tx to [facility]/no surgical intervention Surgical History H/O sinus surgery History of carpal tunnel surgery B/L History of orthopedic surgery " bilat heel surgery" History of tubal ligation Hx of arteriovenostomy for renal dialysis right arm Hx of total knee arthroplasty B/L Family History Other AAA (abdominal aortic aneurysm) Diabetes Family history non-contributory Hypertension Myotonic dystrophy Social History Smoking Status: Never smoker Cigarettes Per Day: 0.25ppd; Second Hand Exposure: No; Do You Dip or Chew Tobacco: No; Hx Substance Use: No Preferred Language: Khmer Communication Ability: Effective Communication Ability Comment: PT SOMETIMES DOESN'T UNDERSTAND INFO/ SOMETIMES SIGNS CONSENTS/[place] 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 Normal insp/exp effort, no accessory muscle use Cardiovascular: RRR, no murmur, no edema Vessels: no JVD or carotid bruit Chest: normal inspection of chest Abdomen: normal bowel sounds, soft, nontender, no hepatosplenomegaly Musculoskeletal: no cyanosis or clubbing, extremities motor strength 5/5. Has fistula on her right arm with bandages over it. Skin: Perineal skin examination reveals erythema with superficial skin breakdown. No significant ulceration skin visualized Neurologic: PERRL, EOMI, accommodation nl, no face palsy, no dysarthria CN's II- XI intact bilaterally and moves all extremities Psychiatric: A+Ox3, euthymic affect Results & Data Results & Data Vital Signs (Past 12 Hours) Vital Signs Temp Pulse Pulse Resp BP BP Pulse Ox 09/05/22 21:00 70 22 114/59 L 94 09/05/22 20:00 77 21 161/90 H 77 L 09/05/22 19:32 72 14 141/51 H 94 09/05/22 18:54 93 09/05/22 18:53 70 20 111/59 L 93 09/05/22 18:27 68 09/05/22 17:32 36.5 C 106 H 18 105/43 L 95 O2 Del Method 09/05/22 21:00 09/05/22 20:00 09/05/22 19:32 09/05/22 18:54 Room Air 09/05/22 18:53 Room Air 09/05/22 18:27 09/05/22 17:32 Laboratory Results Laboratory Results WBC 10.29 K/ul (4.8-10.8) 09/05/22 17:51 RBC 2.74 M/uL (4.20-5.40) L 09/05/22 17:51 Hgb 8.6 g/dl (12.0-16.0) L 09/05/22 17:51 Hct 28.6 % (37.0-47.0) L 09/05/22 17:51 MCV 104.4 fL (80.0-100.0) H 09/05/22 17:51 MCH 31.4 pg (25.0-34.0) 09/05/22 17:51 MCHC 30.1 g/dL (32.0-36.0) L 09/05/22 17:51 RDW Std Deviation 72.4 fL (36.4-46.3) H 09/05/22 17:51 RDW Coeff of Bhavin 19.1 % (11.5-14.5) H 09/05/22 17:51 Plt Count 311 K/uL (130-400) 09/05/22 17:51 MPV 10.4 fL (9.4-12.4) 09/05/22 17:51 Immature Gran % (Auto) 1.9 % 09/05/22 17:51 Neut % (Auto) 69.7 % 09/05/22 17:51 Lymph % (Auto) 12.2 % 09/05/22 17:51 Perkins % (Auto) 11.9 % 09/05/22 17:51 Eos % (Auto) 3.2 % 09/05/22 17:51 Baso % (Auto) 1.1 % 09/05/22 17:51 Neut # (Auto) 7.17 K/uL (1.40-6.50) H 09/05/22 17:51 Lymph # (Auto) 1.26 K/uL (1.2-3.4) 09/05/22 17:51 Perkins # (Auto) 1.22 K/uL (0.11-0.59) H 09/05/22 17:51 Eos # (Auto) 0.33 K/uL (0-0.50) 09/05/22 17:51 Baso # (Auto) 0.11 K/uL (0-0.2) 09/05/22 17:51 Immature Gran # (Auto) 0.20 K/uL (0.01-0.20) 09/05/22 17:51 Absolute Nucleated RBC 0.06 K/uL (0-0.12) 09/05/22 17:51 Nucleated RBC % (auto) 0.6 % 09/05/22 17:51 PT 10.0 Seconds (9.0-12.0) 09/05/22 20:30 INR 0.9 (0.9-1.1) 09/05/22 20:30 APTT 28.6 Seconds (21.0-31.0) 09/05/22 20:30 PTT Ratio 1.0 09/05/22 20:30 Sodium 136 mmol/L (136-145) 09/05/22 17:51 Potassium 4.5 mmol/L (3.5-5.1) 09/05/22 17:51 Chloride 96 mmol/L (98-107) L 09/05/22 17:51 Carbon Dioxide 29 mmol/L (21-32) 09/05/22 17:51 Anion Gap 11 (3-11) 09/05/22 17:51 BUN 18 mg/dl (6-23) 09/05/22 17:51 Creatinine 4.13 mg/dl (0.6-1.2) H 09/05/22 17:51 Est Cr Clr Drug Dosing Not Reportable 09/05/22 17:51 Est GFR ( Amer) 11.5 ml/min 09/05/22 17:51 Est GFR (Non-Af Amer) 9.9 ml/min 09/05/22 17:51 BUN/Creatinine Ratio 4.4 (10-20) L 09/05/22 17:51 Glucose 101 mg/dl (70-99(Fasting)) H 09/05/22 17:51 Lactate 2.0 mmol/L (0.4-2.0) 09/05/22 17:51 Calcium 8.6 mg/dl (8.6-10.3) 09/05/22 17:51 Magnesium 1.9 mg/dl (1.7-2.4) 09/05/22 17:51 Total Bilirubin 0.2 mg/dl (0.2-1.0) 09/05/22 17:51 Direct Bilirubin 0.1 mg/dl (0-0.2) 09/05/22 20:30 AST 31 U/L (13-39) 09/05/22 17:51 ALT 8 U/L (7-52) 09/05/22 17:51 Alkaline Phosphatase 72 U/L (34-104) 09/05/22 17:51 Troponin I High Sens 11.9 pg/ml (0-14) 09/05/22 17:51 Total Protein 7.3 gm/dl (6.0-8.3) 09/05/22 17:51 Albumin 4.0 gm/dl (3.4-5.0) 09/05/22 17:51 Procalcitonin 1.14 ng/ml (0-0.5) H 09/05/22 17:51 Blood Type O Positive 09/05/22 18:41 Antibody Screen NEGATIVE 09/05/22 18:41 Code Status & VTE Plan VTE Prophylaxis Plan VTE Prophylaxis will be ordered: Yes
[2022-09-05] MEDS ORDERED: MELATONIN 3 MG TAB PO ONE (21:33)
[2022-09-06] MEDS ORDERED: ACETAMINOPHEN 325 MG TAB PO PRN ×2
[2022-09-06] MEDS ORDERED: ALUMINUM/MAGNESIUM SUSP 30 ML UDC PO PRN
[2022-09-06] MEDS ORDERED: MAGNESIUM HYDROXIDE SUSP 30 ML UDC PO PRN
[2022-09-06] MEDS ORDERED: POLYETHYLENE (MIRALAX) 17 GM PACK PO PRN
[2022-09-06] MEDS: cefTRIAXone SODIUM 2,000 MG in DEXTROSE 5% 50 ML IV SCH (01:24)
[2022-09-06] MEDS: HEPARIN SOD 5,000 UNIT/0.5 ML VIAL SQ SCH ×4 (01:27→22:13)
[2022-09-06] MEDS: ASPIRIN 81 MG ECTAB PO SCH ×2 (01:29→22:02)
[2022-09-06] MEDS: ATORVASTATIN 40 MG TAB PO SCH ×2 (01:30→22:02)
[2022-09-06] MEDS: ISOSORBIDE MONO EXTENDED REL 30 MG TABCR PO SCH ×2 (01:31→22:03)
[2022-09-06] MEDS: CHOLECALCIFEROL 5,000 UNITS 125 MCG TAB PO SCH ×2 (01:31→22:03)
[2022-09-06] MEDS: CALCIUM ACETATE 667 MG CAP/TAB PO SCH ×4 (01:31→22:03)
[2022-09-06] MEDS: NEPHROCAPS PO SCH ×2 (01:32→22:05)
[2022-09-06] MEDS: PANTOprazole 40 MG TAB PO SCH ×3 (01:32→22:06)
[2022-09-06] MEDS: SERTRALINE HCL 100 MG TABLET PO SCH ×2 (01:33→22:07)
[2022-09-06] MEDS: NYSTATIN POWDER 15GM BTL EXT SCH ×3 (01:33→22:06)
[2022-09-06] MEDS: PREGABALIN 100 MG CAP PO SCH ×3 (01:38→22:07)
[2022-09-06] MEDS: LEVOTHYROXINE SODIUM 125 MCG TABLET PO SCH (06:37)
--- NOTE | 2022-09-06 07:26 | XRay Report ---
XR chest 1V portable CLINICAL HISTORY: Sepsis. COMPARISON STUDY: Chest radiograph and chest CT May 23, 2022. FINDINGS: There is no pneumothorax or pleural effusion. Cardiomegaly is unchanged. There is no eviden ce for pulmonary edema. There is no consolidation to suggest pneumonia. There has been no significant change in appearance of the chest. IMPRESSION: No acute cardiopulmonary findings. Stable cardiomegaly. ACT 112: Negative or not required by law. Electronically signed by: Bryn Tanner M.D. 09/06/2022 7:25 AM
[2022-09-06 07:36] LABS: Basophils # (auto) 0.09 K/uL (0-0.2); Basophils % (auto) 1.2 %; Eosinophils # (auto) 0.36 K/uL (0-0.50); Eosinophils % (auto) 4.6 %; Hematocrit (blood only) 26.2 % (37.0-47.0); Hemoglobin 8.2 g/dl (12.0-16.0); Immature Granulocytes # (auto) 0.14 K/uL (0.01-0.20); Immature Granulocytes % (auto) 1.8 %; Lymphocytes # (auto) 1.24 K/uL (1.2-3.4); Mean Corpuscular Hemoglobin 31.5 pg (25.0-34.0); Mean Corpuscular Hgb Conc 31.3 g/dL (32.0-36.0); Mean Corpuscular Volume 100.8 fL (80.0-100.0); Mean Platelet Volume 10.6 fL (9.4-12.4); Monocytes # (auto) 0.95 K/uL (0.11-0.59); Monocytes % (auto) 12.2 %; Neutrophils # (auto) 4.98 K/uL (1.40-6.50); Neutrophils % (auto) 64.2 %; Nucleated RBC # (auto) 0.07 K/uL (0-0.12); Nucleated RBC % (auto) 0.9 %; Platelet Count 300 K/uL (130-400); RDW Coefficient of Variation 18.7 % (11.5-14.5); White Blood Count 7.76 K/ul (4.8-10.8)
[2022-09-06 07:55] LABS: Albumin Globulin Ratio 1.1 (0.9-2); Albumin Level 3.3 gm/dl (3.4-5.0); BUN Creatinine Ratio 5.4 (10-20); Bilirubin,Total 0.2 mg/dl (0.2-1.0); C Reactive Protein 1.63 mg/dl (0-0.5); Calcium 8.7 mg/dl (8.6-10.3); Creatinine Clr Calc Pharmacy 10.9 ml/min; Est GFR (African American) 8.7 ml/min; Est GFR (Non-African American) 7.5 ml/min; Globulin 2.9 gm/dl (2.5-4.0); Phosphorus 5.8 mg/dl (2.5-4.9); Potassium 3.7 mmol/L (3.5-5.1); Total Protein 6.2 gm/dl (6.0-8.3)
--- NOTE | 2022-09-06 08:21 | Nephrology Consultation ---
Date of Consultation September 06, 2022 Assessment & Plan (1) ESRD (end stage renal disease) on dialysis: on TRSat HD as OP w/ uneventful tx day prior to admission -next HD on 09/07 or as needs dictate -no evidence of sepsis from decubiti to date -daily bmp, cbc (2) Anemia: multifactorial from GI losses, ESRD -on max dose LAVERNE therapy w/ HD -continue GI /WAREHOUSE HELPER w/u -transfuse prn, ideally w/ HD txs History of Present Illness Reason for Consultation: ESRD on hemodialysis Requesting Physician: Dr Shea Attending Physician: Margo Guillen, History of Present Illness 76 y/o F whom I'm asked to see for dialysis needs was admitted yesterday for definitive evaluation and management of several stuttering problems, including chronic intermittent bleeding unclear if GI or WAREHOUSE HELPER related and w/ need for WAREHOUSE HELPER/GI eval as well as concern for sacral wounds w/ purulent drainage noted on lift pad at dialysis. her anemia has worsened significantly though not critically this spring w/ bleeding >> from a baseline of about 10 to since July. PMH includes type 2 diabetes, COPD, RENÉ on CPAP, HFpEF. also on TRSat HD via [facility] in [place]. Pt is essentially wheelchair bound and unable to transfer. She lives at home w/ her who has been waiting for several months now for SNF admission but none available. Pt w/ at least moderate cognitive /memory impairment. She had an uneventful HD treatment yesterday via [facility]. There is a planned admission here scheduled for 09/20 for combined cfo/gi eval of bleeding and abnormal imaging. pt unsure if she's had more bleeding. no new/worrisome voiding sx > voids every few days. no n/v, no edema; no sob; tolerating po; a bit sleepy she tells me. sacral area adn posterior legs have been sore w/ sitting in chairs. told me at dialysis yesterday she has BRB in toilet in large amounts again. Allergies Allergy/AdvReac Type Severity Reaction Status Date / Time No Known Allergies Allergy Verified 09/05/22 19:18 Home Medications Medication Instructions Recorded Confirmed Type aspirin 81 mg tablet,delayed 162 mg PO QPM 11/15/21 09/05/22 History release atorvastatin 80 mg tablet 80 mg PO QPM 11/15/21 09/05/22 History calcium acetate(phosphat bind) 667 667 mg PO TID 11/15/21 09/05/22 History mg capsule carbidopa 25 mg-levodopa 100 mg 1 tab PO TIDM 11/15/21 09/05/22 History tablet cholecalciferol (vitamin D3) 125 125 mcg PO QPM 11/15/21 09/05/22 History mcg (5,000 unit) tablet (Vitamin D3) docusate sodium 100 mg capsule 100 mg PO Q2D 11/15/21 09/05/22 History (Colace) isosorbide mononitrate 30 mg 30 mg PO QPM 11/15/21 09/05/22 History tablet,extended release 24 hr levothyroxine 125 mcg tablet 125 mcg PO QAM 11/15/21 09/05/22 History lidocaine-prilocaine 2.5 %-2.5 % 1 applic topical DIRECTED PRN 1 11/15/21 09/05/22 History topical cream HR PRIOR TO DIALYSIS pregabalin 100 mg capsule 100 mg PO BID 11/15/21 09/05/22 History sertraline 100 mg tablet 100 mg PO QPM 11/15/21 09/05/22 History ferric citrate 210 mg iron tablet 210 mg PO TID 04/16/22 09/05/22 History (Auryxia) vitamin B complex-vitamin C-folic 1 tab PO QPM 04/16/22 09/05/22 History acid 0.8 mg tablet (Nanci-Samuel) pantoprazole 20 mg tablet,delayed 20 mg PO BID 05/23/22 09/05/22 History release acetaminophen 325 mg tablet 650 mg PO Q6H PRN Pain 09/05/22 09/05/22 History (Tylenol) epinephrine 0.3 mg/0.3 mL 0.3 mg IM DIRECTED PRN Allergic 09/05/22 09/05/22 History injection, auto-injector (EpiPen) Reaction hydrocortisone 2.5 % topical cream 1 applic [place] DAILY PRN Hemorrhoids 09/05/22 09/05/22 History with perineal applicator meclizine 12.5 mg tablet 12.5 mg PO TID PRN Dizziness 09/05/22 09/05/22 History melatonin 10 mg tablet 10 mg PO HS 09/05/22 09/05/22 History Patient History Medical History Aspiration pneumonia HX Black stools Chronic diastolic heart failure COPD (chronic obstructive pulmonary disease) no medications for currently Depression Diabetes mellitus, type II hx / NO MEDS Difficult intravenous access Dyslipidemia ESRD (end stage renal disease) on dialysis tues, thur & sat [facility]) Generalized anxiety disorder GI problem esophagus/stomach inflammed on most recent endoscopy in apr 2022/ reason for upcoming procedure to f/u History of anesthesia reaction "hard time waking up" History of COVID-19 ? early 2021- mild congestion, no hospitalization, no current issues History of recent hospitalization may 2022 - uti/mnmc - resolved History of stroke 2019- pts spouse poor historian pt denies hx stroke [place] (hard of hearing) HTN (hypertension) Hx: recurrent pneumonia Hypothyroidism RACHEL (iron deficiency anemia) Meniere's disease Mobility impaired pt non compliant with hx pt treatments / PT IS IN WHEELCHAIR/TOTAL ASSIST Morbid obesity Non-ST elevation [place] (NSTEMI) pt spouse not sure/ mild ? remembers something mentioned in hx/ ? details RENÉ on CPAP Parkinson disease Poor short term memory Restless leg syndrome Rheumatoid arthritis ? current status/no meds for Subdural hematoma hx fall 2019 - tx to [facility]/no surgical intervention Surgical History H/O sinus surgery History of carpal tunnel surgery B/L History of orthopedic surgery " bilat heel surgery" History of tubal ligation Hx of arteriovenostomy for renal dialysis right arm Hx of total knee arthroplasty B/L Family History Other AAA (abdominal aortic aneurysm) Diabetes Family history non-contributory Hypertension Myotonic dystrophy Social History Smoking Status: Former smoker Cigarettes Per Day: 0.25ppd; Second Hand Exposure: No; Do You Dip or Chew Tobacco: No; Hx Alcohol Use: No Hx Substance Use: No Preferred Language: Belarusian Communication Ability: Effective Communication Ability Comment: PT SOMETIMES DOESN'T UNDERSTAND INFO/ SOMETIMES SIGNS CONSENTS/[place] 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 Beliefs That Will Affect Care: None marital status: Current Living Situation: Spouse Current Living Situation Comment: AND 2 DOGS Other Information That Helps Us Care for You: No Feels Safe at Home: Yes Safety Concerns: Feels Safe At This Time Assistive Devices: CPAP, Glasses, Hearing Aid - Bilateral and Wheelchair Review of Systems Review of Systems: All systems reviewed & are unremarkable except as noted in HPI & below Physical Exam Constitutional: well developed, well nourished, + morbidly obese, + frail appearing and cooperative Eyes: EOM intact bilaterally ENMT: Ears: no external ear abnormality Nose: no external nose abnormality Mouth: + dry oral mucous membranes Neck: no nuchal rigidity Respiratory: normal respiratory effort Auscultation: + diminished lung sounds Cardiovascular: Rate/Rhythm: regular rate and regular rhythm Extremities: + AV fistula; no edema Gastrointestinal (Abdomen): Inspection/Auscultation: normal bowel sounds Percussion/Palpation: abdomen soft; abdomen nontender Musculoskeletal: Extremities: strength 5/5 throughout Skin: no rashes, warm and dry decubitus/sacral area not examined Neurologic: caballero, fluent speech, no tremor Psychiatric: Orientation: alert and oriented x 3 (remains unreliable historian however) Results & Data Vital Signs (Past 12 Hours) Vital Signs Temp Pulse Pulse Pulse Resp BP BP 09/05/22 23:34 09/05/22 23:34 36.8 C 72 18 141/52 H 09/06/22 04:06 36.4 C L 67 18 100/47 L 09/05/22 22:07 80 09/05/22 22:10 74 21 09/05/22 21:00 70 22 114/59 L Pulse Ox O2 Del Method 09/05/22 23:34 Room Air 09/05/22 23:34 95 Room Air 09/06/22 04:06 97 Room Air 09/05/22 22:07 09/05/22 22:10 92 09/05/22 21:00 94 Laboratory Results 09/06/22 06:36 09/06/22 06:36 Diagnostic Findings CXR > no acute process; stable cardiomeg (2) Anemia Anemia type: unspecified type Qualified Code(s): D64.9 - Anemia, unspecified
[2022-09-06] MEDS: CARBIDOPA/LEVODOPA 25/100MG TAB PO SCH ×3 (08:52→17:31)
[2022-09-06] MEDS: MECLIZINE 12.5 MG TAB PO PRN (08:52)
[2022-09-06] MEDS: DOCUSATE SODIUM 100 MG CAP PO SCH (08:52)
--- NOTE | 2022-09-06 09:18 | Hospitalist Progress Note ---
Date of Service September 06, 2022 Assessment & Plan (1) Cellulitis of sacral region: Plan: Patient was sent to the ED after her dialysis session for evaluation of multiple wounds on her buttocks Per , patient was diagnosed with fungal infection by the visiting nurse and he is keeping the area dry with improvement. No leukocytosis or sepsis is present Per the wound image in the chart from today, the area is erythmatous with a quarter size area of skin breakdown on the left lower buttock/upper thigh area. Cont nystatin powder twice daily. Cont ceftriaxone to cover for bacterial superimposed infection. Wound consult PT OT evaluation (2) Decubitus ulcer: Plan: Plan as above, turn q2hrs. (3) Thickened endometrium: (4) Anemia: (5) Acute GI bleeding: Plan: Patient has been recently evaluated for anemia by GI and gynecology. Patient was noted to have thickened endometrium on sonogram. Patient is planned to be admitted a day prior to September 20 for colonoscopy(to be done by Dr. Winston) and D&C with hysteroscopy ( by Dr. Castanon) Hemoglobin stable. Consulting specialists to consider inpatient evaluation during this admission as noted above. (6) DM type 2 (diabetes mellitus, type 2): Plan: Type 2 diabetes mellitus; diet controlled with A1c of 5.3 in May 2022. Monitor glucose (7) LBBB (left bundle branch block): Plan: chronic (8) ESRD (end stage renal disease) on dialysis: Plan: Consult nephrology for comanagement. Next hemodialysis in on Friday if patient continues to be hospitalized. (9) Hypothyroidism: Plan: chronic, stable. Cont levothyroxine per home regimen. (10) Parkinson disease: Plan: chronic, stable. Cont Sinemet per home regimen. DVT proph with heparin DNR/DNI Dispo-pending PT/OT evaluations and clinical improvement. Margo Guillen DO [facility] Hospitalist Admission and Anticipated Discharge Date Admission Date: September 05, 2022 Subjective 76 yo F presetns for evaluation of buttock wounds tonight she is very lethargiv and unable to stay awake long enough tohave a conversation She does admit that her bottom is sore but otherwise denies issues She does have a h/o dementia and when I asked her about vaginal bleeding she was unaware I did reach out to both GI and BILLING SERVICES MANAGER specialties who had been trying to coordinate procedures in case there is an opportunity to provide care while she is inpatient given the extensive circumstances organizing care at home. Review of Systems Review of Systems: All systems were reviewed and negative except as indicated above. Physical Exam Physical Exam: CONSTITUTIONAL: morbid obesity, vitals as above, generally well-appearing, lethargic EYES: normal conjunctivae, no scleral icterus ENT: external ear and nose normal, MMM NECK: trachea midline RESPIRATORY: clear to auscultation bilaterally, no crackles, rales or wheezes, normal respiratory effort CARDIOVASCULAR: regular rate and rhythm with diminished breath sounds at the bases bilaterally, S1 and 2 heard without murmurs, gallops or rubs, no JVD, no peripheral edema CHEST: inspection of chest was normal GASTROINTESTINAL: soft, nontender, ND, no guarding MUSCULOSKELETAL: strength 5/5 throughout, head is normocephalic and atraumatic SKIN: warm and dry, sacral area could not be examined as patient unable to assist with exam 2/2 lethargy NEUROLOGIC: CN 2-12 grossly intact, no sensory deficit, normal cognition, normal speech, no tremor PSYCHIATRIC: alert cooperative and answering questions appropriately. Unable to determine orientation Results & Data Results & Data Vital Signs (Past 12 Hours) Vital Signs Temp Pulse Pulse Pulse Resp BP Pulse Ox 09/06/22 08:00 71 09/06/22 08:45 92 09/06/22 08:44 36.7 C 56 L 18 111/62 90 09/05/22 23:34 09/05/22 23:34 36.8 C 72 18 141/52 H 95 09/06/22 04:06 36.4 C L 67 18 100/47 L 97 09/05/22 22:07 80 09/05/22 22:10 74 21 92 O2 Del Method O2 Flow Rate 09/06/22 08:00 09/06/22 08:45 Nasal Cannula 2 09/06/22 08:44 Room Air 09/05/22 23:34 Room Air 09/05/22 23:34 Room Air 09/06/22 04:06 Room Air 09/05/22 22:07 09/05/22 22:10 Laboratory Results Short CBC 09/05/22 09/06/22 Range/Units 17:51 06:36 WBC 10.29 7.76 (4.8-10.8) K/ul Hgb 8.6 L 8.2 L (12.0-16.0) g/dl Hct 28.6 L 26.2 L (37.0-47.0) % Plt Count 311 300 (130-400) K/uL BMP 09/05/22 09/06/22 17:51 06:36 Sodium 136 138 Potassium 4.5 3.7 Chloride 96 L 99 Carbon Dioxide 29 28 BUN 18 28 H Creatinine 4.13 H 5.21 H* D Glucose 101 H 100 H Calcium 8.6 8.7 Liver Function 09/05/22 09/05/22 09/06/22 Range/Units 17:51 20:30 06:36 Total Bilirubin 0.2 0.2 (0.2-1.0) mg/dl Direct Bilirubin TNP 0.1 AST 31 16 (13-39) U/L ALT 8 5 L (7-52) U/L Alkaline Phosphatase 72 63 (34-104) U/L Albumin 4.0 3.3 L (3.4-5.0) gm/dl Diagnostic Findings Chest X-Ray 09/05/22 17:51 XR chest 1V portable CLINICAL HISTORY: Sepsis. COMPARISON STUDY: Chest radiograph and chest CT May 23, 2022. FINDINGS: There is no pneumothorax or pleural effusion. Cardiomegaly is unchanged. There is no evidence for pulmonary edema. There is no consolidation to suggest pneumonia. There has been no significant change in appearance of the chest. IMPRESSION: No acute cardiopulmonary findings. Stable cardiomegaly. ACT 112: Negative or not required by law. Electronically signed by: Bryn Tanner M.D. 09/06/2022 7:25 AM Medications Administered Current Inpatient Medications Acetaminophen (Acetaminophen 325 Mg Tab) 650 mg PO Q4H PRN PRN Reason: Pain or Fever Stop: 10/06/22 00:00 Al Hydrox/Mg Hydrox/Simethicone (Aluminum/Magnesium Susp 30 Ml Udc) 15 ml PO Q4H PRN PRN Reason: Dyspepsia Stop: 10/06/22 00:00 Aspirin (Aspirin 81 Mg Ectab) 162 mg PO QPM [facility] Stop: 10/06/22 00:00 Last Admin: 09/06/22 01:29 Dose: 162 mg Atorvastatin Calcium (Atorvastatin 40 Mg Tab) 80 mg PO QPM [facility] Stop: 10/06/22 00:00 Last Admin: 09/06/22 01:30 Dose: 80 mg Calcium Acetate (Calcium Acetate 667 Mg Cap/Tab) 667 mg PO TID [facility] Stop: 10/06/22 00:00 Last Admin: 09/06/22 08:53 Dose: 667 mg Carbidopa/Levodopa (Carbidopa/Levodopa 25/100mg Tab) 1 tab PO TIDM [facility] Stop: 10/06/22 07:59 Last Admin: 09/06/22 08:52 Dose: 1 tab Docusate Sodium (Docusate Sodium 100 Mg Cap) 100 mg PO Q2D@0900 [facility] Stop: 10/06/22 08:59 Last Admin: 09/06/22 08:52 Dose: 100 mg Heparin Sodium (Porcine) (Heparin Sod 5,000 Unit/0.5 Ml Vial) 5,000 units SQ Q8 [facility] Stop: 10/06/22 00:00 Last Admin: 09/06/22 06:37 Dose: 5,000 units Ceftriaxone Sodium 2,000 mg/ (Dextrose) 70 mls @ 100 mls/hr IV Q24H [facility]; Protocol Stop: 09/13/22 00:59 Last Infusion: 09/06/22 02:11 Dose: Infused Isosorbide Mononitrate (Isosorbide [place] Extended Rel 30 Mg Tabcr) 30 mg PO QPM [facility] Stop: 10/06/22 00:00 Last Admin: 09/06/22 01:31 Dose: 30 mg Levothyroxine Sodium (Levothyroxine Sodium 125 Mcg Tablet) 125 mcg PO DAILYBB [facility] Stop: 10/06/22 06:29 Last Admin: 09/06/22 06:37 Dose: 125 mcg Magnesium Hydroxide (Magnesium Hydroxide Susp 30 Ml Udc) 30 ml PO Q12H PRN PRN Reason: Constipation Stop: 10/06/22 00:00 Meclizine HCl (Meclizine 12.5 Mg Tab) 12.5 mg PO TID PRN PRN Reason: Dizziness Stop: 10/06/22 00:00 Last Admin: 09/06/22 08:52 Dose: 12.5 mg Melatonin (Melatonin 3 Mg Tab) 9 mg PO HS [facility] Stop: 10/06/22 20:59 Miscellaneous (Ferric Citrate [Auryxia] 210 Mg - Order Awaiting Action) 1 each N/A QS [facility] Stop: 10/06/22 07:59 Last Admin: 09/06/22 08:56 Dose: Not Given Mupirocin (Mupirocin 2% Oint 22 Gm Tube) 1 appln EXT BID [facility] Stop: 10/06/22 08:59 Nystatin (Nystatin Powder 15gm Btl) 1 appln EXT BID [facility] Stop: 10/06/22 00:00 Last Admin: 09/06/22 08:53 Dose: 1 appln Pantoprazole Sodium (Pantoprazole 40 Mg Tab) 40 mg PO BID [facility] Stop: 10/06/22 00:00 Last Admin: 09/06/22 08:53 Dose: 40 mg Polyethylene Glycol (Polyethylene (Miralax) 17 Gm Pack) 17 gm PO DAILY PRN PRN Reason: Constipation Stop: 10/06/22 00:00 Pregabalin (Pregabalin 100 Mg Cap) 100 mg PO BID [facility] Stop: 10/06/22 00:00 Last Admin: 09/06/22 01:38 Dose: 100 mg Sertraline HCl (Sertraline Hcl 100 Mg Tablet) 100 mg PO QPM [facility] Stop: 10/06/22 00:00 Last Admin: 09/06/22 01:33 Dose: 100 mg Vitamin B Complex/Folic Acid (Nephrocaps) 1 cap PO QPM [facility] Stop: 10/06/22 00:00 Last Admin: 09/06/22 01:32 Dose: 1 cap Vitamin D (Cholecalciferol 5,000 Units 125 Mcg Tab) 5,000 units PO QPM [facility] Stop: 10/06/22 00:00 Last Admin: 09/06/22 01:31 Dose: 5,000 units (2) Decubitus ulcer Pressure injury location: unspecified location Pressure injury stage: unspecified pressure injury stage Qualified Code(s): L89.90 - Pressure ulcer of unspecified site, unspecified stage (4) Anemia Anemia type: unspecified type Qualified Code(s): D64.9 - Anemia, unspecified
[2022-09-06] MEDS: MUPIROCIN 2% OINT 22 GM TUBE EXT SCH ×2 (09:23→22:05)
--- NOTE | 2022-09-06 15:17 | Electrocardiogram Report ---
Test Reason : Blood Pressure : / mmHG Vent. Rate : 069 BPM Atrial Rate : 069 BPM P-R Int : 176 ms QRS Dur : 140 ms QT Int : 482 ms P-R-T Axes : 059 028 061 degrees QTc Int : 516 ms Sinus rhythm with frequent Premature ventricular complexes Left bundle branch block Abnormal ECG When compared with ECG of 23-MAY-2022 08:04, Premature ventricular complexes are now Present Confirmed by Angel Lopez ([id number]) on 09/06/2022 3:16:36 PM Referred By: Briseida Busby Confirmed By:Angel Lopez
--- NOTE | 2022-09-06 15:32 | Communication Note ---
Date of Service: September 06, 2022 Chart reviewed - Pt was admitted with sacral decubitus. She has ESRD and associated chronic anemia; records indicate that she has had rectal bleeding for at least a year. It will be difficult to prep her given her sacral wound infection. Colonoscopy is not urgent at this time. Please notify us once decubitus is improved, and when pt would be better able to tolerate prep.
--- NOTE | 2022-09-06 15:56 | OB/GYN Consultation ---
Date of Consultation September 06, 2022 Assessment & Plan (1) Thickened endometrium: Patient does need hysteroscopy D&C to rule out endometrial hyperplasia or malignancy due to the incidental finding of thickened endometrium 1.6 cm, even in the setting of no vaginal bleeding However would recommend due to her multiple comorbidities, to try to do at the same time as other surgical procedure with GI Will discuss with Dr Castanon who is salesperson floor coverings tomorrow-to see if he believes he could do this Friday when he is salesperson floor coverings (during this admission) Appreciate the consult, please contact us with any questions or concerns History of Present Illness Reason for Consultation: Thickened endometrium Attending Physician: Margo Guillen, DO History of Present Illness Patient is a 76-year-old G3, P3 postmenopausal female with significant comorbidities, that was admitted from medicine service for infected sacral decubitus. She was originally planned for hysteroscopy with D&C for incidental finding of a thickened endometrium on sonogram, which would be at the same time of a colonoscopy which is scheduled on September 20, [address] Castanon. However I was consulted to see if patient could undergo procedure sooner during this hospital admission. Patient denies any vaginal bleeding, but states she did have blood earlier when she had a bowel movement. She is unable to be sure where it is coming from. Endometrial thickness is 1.6 cm seen on ultrasound performed on June 11, 2022 Patient is unable to give much history, and the remainder of the information was collected from her [employer] chart Allergies Allergy/AdvReac Type Severity Reaction Status Date / Time No Known Allergies Allergy Verified 09/05/22 19:18 Home Medications Medication Instructions Recorded Confirmed Type aspirin 81 mg tablet,delayed 162 mg PO QPM 11/15/21 09/05/22 History release atorvastatin 80 mg tablet 80 mg PO QPM 11/15/21 09/05/22 History calcium acetate(phosphat bind) 667 667 mg PO TID 11/15/21 09/05/22 History mg capsule carbidopa 25 mg-levodopa 100 mg 1 tab PO TIDM 11/15/21 09/05/22 History tablet cholecalciferol (vitamin D3) 125 125 mcg PO QPM 11/15/21 09/05/22 History mcg (5,000 unit) tablet (Vitamin D3) docusate sodium 100 mg capsule 100 mg PO Q2D 11/15/21 09/05/22 History (Colace) isosorbide mononitrate 30 mg 30 mg PO QPM 11/15/21 09/05/22 History tablet,extended release 24 hr levothyroxine 125 mcg tablet 125 mcg PO QAM 11/15/21 09/05/22 History lidocaine-prilocaine 2.5 %-2.5 % 1 applic topical DIRECTED PRN 1 11/15/21 09/05/22 History topical cream HR PRIOR TO DIALYSIS pregabalin 100 mg capsule 100 mg PO BID 11/15/21 09/05/22 History sertraline 100 mg tablet 100 mg PO QPM 11/15/21 09/05/22 History ferric citrate 210 mg iron tablet 210 mg PO TID 04/16/22 09/05/22 History (Auryxia) vitamin B complex-vitamin C-folic 1 tab PO QPM 04/16/22 09/05/22 History acid 0.8 mg tablet (Nanci-Samuel) pantoprazole 20 mg tablet,delayed 20 mg PO BID 05/23/22 09/05/22 History release acetaminophen 325 mg tablet 650 mg PO Q6H PRN Pain 09/05/22 09/05/22 History (Tylenol) epinephrine 0.3 mg/0.3 mL 0.3 mg IM DIRECTED PRN Allergic 09/05/22 09/05/22 History injection, auto-injector (EpiPen) Reaction hydrocortisone 2.5 % topical cream [address] DAILY PRN Hemorrhoids 09/05/22 09/05/22 History with perineal applicator meclizine 12.5 mg tablet 12.5 mg PO TID PRN Dizziness 09/05/22 09/05/22 History melatonin 10 mg tablet 10 mg PO HS 09/05/22 09/05/22 History Patient History Medical History Aspiration pneumonia HX Black stools Chronic diastolic heart failure COPD (chronic obstructive pulmonary disease) no medications for currently Depression Diabetes mellitus, type II hx / NO MEDS Difficult intravenous access Dyslipidemia ESRD (end stage renal disease) on dialysis tues, thur & sat ([facility]) Generalized anxiety disorder GI problem esophagus/stomach inflammed on most recent endoscopy in apr 2022/ reason for upcoming procedure to f/u History of anesthesia reaction "hard time waking up" History of COVID-19 ? early 2021- mild congestion, no hospitalization, no current issues History of recent hospitalization may 2022 - uti/mnmc - resolved History of stroke 2019- pts spouse poor historian pt denies hx stroke ILIAMNA (hard of hearing) HTN (hypertension) Hx: recurrent pneumonia Hypothyroidism RACHEL (iron deficiency anemia) Meniere's disease Mobility impaired pt non compliant with hx pt treatments / PT IS IN WHEELCHAIR/TOTAL ASSIST Morbid obesity Non-ST elevation FL (NSTEMI) pt spouse not sure/ mild ? remembers something mentioned in hx/ ? details RENÉ on CPAP Parkinson disease Poor short term memory Restless leg syndrome Rheumatoid arthritis ? current status/no meds for Subdural hematoma hx fall 2019 - tx to [facility]/no surgical intervention Surgical History H/O sinus surgery History of carpal tunnel surgery B/L History of orthopedic surgery " bilat heel surgery" History of tubal ligation Hx of arteriovenostomy for renal dialysis right arm Hx of total knee arthroplasty B/L Family History Other AAA (abdominal aortic aneurysm) Diabetes Family history non-contributory Hypertension Myotonic dystrophy Social History Smoking Status: Former smoker Cigarettes Per Day: 0.25ppd; Second Hand Exposure: No; Do You Dip or Chew Tobacco: No; Hx Alcohol Use: No Hx Substance Use: No Preferred Language: Kinyarwanda Communication Ability: Effective Communication Ability Comment: PT SOMETIMES DOESN'T UNDERSTAND INFO/ SOMETIMES SIGNS CONSENTS/ILIAMNA Air Conditioning Technician Required: No Beliefs That Will Affect Care: None marital status: Current Living Situation: Spouse Current Living Situation Comment: AND 2 DOGS Other Information That Helps Us Care for You: No Feels Safe at Home: Yes Safety Concerns: Feels Safe At This Time Assistive Devices: CPAP, Glasses, Hearing Aid - Bilateral and Wheelchair Review of Systems Review of Systems: All systems reviewed & are unremarkable except as noted in HPI & below Physical Exam Constitutional: WD/WN, vitals as above Respiratory: normal respiratory effort, lungs clear to auscultation Cardiovascular: RRR, no murmur, no edema Gastrointestinal (Abdomen): normal bowel sounds, soft, nontender, no hepatosplenomegaly Obese Genitourinary: External genitalia: Normal No vaginal bleeding noted Results & Data Vital Signs (Past 12 Hours) Vital Signs Temp Pulse Pulse Pulse Resp BP Pulse Ox 09/06/22 11:49 36.7 C 61 20 117/55 L 95 09/06/22 08:00 71 09/06/22 08:45 92 09/06/22 08:44 36.7 C 56 L 18 111/62 90 09/06/22 04:06 36.4 C L 67 18 100/47 L 97 O2 Del Method O2 Flow Rate 09/06/22 11:49 Nasal Cannula 2 09/06/22 08:00 09/06/22 08:45 Nasal Cannula 2 09/06/22 08:44 Room Air 09/06/22 04:06 Room Air
[2022-09-06] MEDS: MELATONIN 3 MG TAB PO SCH (22:04)
[2022-09-07] MEDS: cefTRIAXone SODIUM 2,000 MG in DEXTROSE 5% 50 ML IV SCH (02:12)
[2022-09-07] MEDS: HEPARIN SOD 5,000 UNIT/0.5 ML VIAL SQ SCH ×3 (06:11→22:42)
[2022-09-07] MEDS: LEVOTHYROXINE SODIUM 125 MCG TABLET PO SCH (06:11)
[2022-09-07] MEDS ORDERED: SODIUM CHLORIDE 0.9% 1000ML 1,000 ML IV PRN (07:52)
[2022-09-07] MEDS ORDERED: EPOETIN ALFA 20,000 UNITS/ML VIAL IV ONE (08:15)
[2022-09-07] MEDS ORDERED: IRON SUCROSE 100 MG in SYRINGE 0 ML IV ONE (08:15)
[2022-09-07] MEDS: MECLIZINE 12.5 MG TAB PO PRN (08:28)
[2022-09-07] MEDS: CALCIUM ACETATE 667 MG CAP/TAB PO SCH ×3 (08:28→22:35)
[2022-09-07] MEDS: MUPIROCIN 2% OINT 22 GM TUBE EXT SCH ×2 (08:29→22:38)
[2022-09-07] MEDS: PANTOprazole 40 MG TAB PO SCH ×2 (08:29→22:38)
[2022-09-07] MEDS: CARBIDOPA/LEVODOPA 25/100MG TAB PO SCH ×3 (08:30→17:50)
[2022-09-07] MEDS: NYSTATIN POWDER 15GM BTL EXT SCH ×2 (08:32→22:39)
[2022-09-07] MEDS: PREGABALIN 100 MG CAP PO SCH ×2 (08:38→22:41)
--- NOTE | 2022-09-07 08:54 | Hospitalist Progress Note ---
Date of Service September 07, 2022 Assessment & Plan (1) Cellulitis of sacral region: Plan: Patient was sent to the ED after her dialysis session for evaluation of multiple wounds on her buttocks Per , patient was diagnosed with fungal infection by the visiting nurse and he is keeping the area dry with improvement. No leukocytosis or sepsis is present Per the wound image in the chart from today, the area is erythmatous with a quarter size area of skin breakdown on the left lower buttock/upper thigh area. Cont nystatin powder twice daily. Cont ceftriaxone to cover for bacterial superimposed infection. Wound consult PT OT evaluation (2) Decubitus ulcer: Plan: Plan as above, turn q2hrs. (3) Thickened endometrium: (4) Anemia: (5) Acute GI bleeding: Plan: Patient has been recently evaluated for anemia by GI and gynecology. Patient was noted to have thickened endometrium on sonogram. Patient is planned to be admitted a day prior to September 20 for colonoscopy(to be done by Dr. Winston) and D&C with hysteroscopy ( by Dr. Castanon) Hemoglobin stable. Consulting specialists to consider inpatient evaluation during this admission as noted above. (6) DM type 2 (diabetes mellitus, type 2): Plan: Type 2 diabetes mellitus; diet controlled with A1c of 5.3 in May 2022. Monitor glucose (7) LBBB (left bundle branch block): Plan: chronic (8) ESRD (end stage renal disease) on dialysis: Plan: Consult nephrology for comanagement. Next hemodialysis in on Friday if patient continues to be hospitalized. (9) Hypothyroidism: Plan: chronic, stable. Cont levothyroxine per home regimen. (10) Parkinson disease: Plan: chronic, stable. Cont Sinemet per home regimen. DVT proph with heparin DNR/DNI Dispo-pending PT/OT evaluations and clinical improvement. Margo Guillen DO [facility] Hospitalist Admission and Anticipated Discharge Date Admission Date: September 05, 2022 Subjective 76 yo F presetns for evaluation of buttock wounds Fatigued after dialysis Reports she is bedbound at baseline and gets around via wheelchair She is not interested in having a Pino lift help her into the bedside chair tonight She reports her bottom is less sore and we talked about the soreness coming from a pressure ulcer and the importance of staying off that. She verbalized understanding. Review of Systems Review of Systems: All systems were reviewed and negative except as indicated above. Physical Exam Physical Exam: CONSTITUTIONAL: morbid obesity, vitals as above, generally well-appearing, lethargic EYES: normal conjunctivae, no scleral icterus ENT: external ear and nose normal, MMM NECK: trachea midline RESPIRATORY: clear to auscultation bilaterally, no crackles, rales or wheezes, normal respiratory effort CARDIOVASCULAR: regular rate and rhythm with diminished breath sounds at the bases bilaterally, S1 and 2 heard without murmurs, gallops or rubs, no JVD, no peripheral edema CHEST: inspection of chest was normal GASTROINTESTINAL: soft, nontender, ND, no guarding MUSCULOSKELETAL: strength 5/5 throughout, head is normocephalic and atraumatic SKIN: warm and dry NEUROLOGIC: CN 2-12 grossly intact, no sensory deficit, normal cognition, normal speech, no tremor PSYCHIATRIC: alert cooperative and answering questions appropriately. Unable to determine orientation Results & Data Results & Data Vital Signs (Past 12 Hours) Vital Signs Temp Pulse Pulse Resp BP Pulse Ox O2 Del Method 09/07/22 07:20 36.7 C 62 18 108/65 93 Nasal Cannula 09/07/22 04:06 36.3 C L 63 20 103/48 L 92 Nasal Cannula 09/07/22 03:26 Nasal Cannula 09/06/22 22:04 66 09/06/22 22:57 36.9 C 57 L 18 123/69 94 Nasal Cannula O2 Flow Rate 09/07/22 07:20 2 09/07/22 04:06 2 09/07/22 03:26 09/06/22 22:04 09/06/22 22:57 2 Medications Administered Current Inpatient Medications Acetaminophen (Acetaminophen 325 Mg Tab) 650 mg PO Q4H PRN PRN Reason: Pain or Fever Stop: 10/06/22 00:00 Al Hydrox/Mg Hydrox/Simethicone (Aluminum/Magnesium Susp 30 Ml Udc) 15 ml PO Q4H PRN PRN Reason: Dyspepsia Stop: 10/06/22 00:00 Aspirin (Aspirin 81 Mg Ectab) 162 mg PO QPM [facility] Stop: 10/06/22 00:00 Last Admin: 09/06/22 22:02 Dose: 162 mg Atorvastatin Calcium (Atorvastatin 40 Mg Tab) 80 mg PO QPM [facility] Stop: 10/06/22 00:00 Last Admin: 09/06/22 22:02 Dose: 80 mg Calcium Acetate (Calcium Acetate 667 Mg Cap/Tab) 667 mg PO TID [facility] Stop: 10/06/22 00:00 Last Admin: 09/07/22 08:28 Dose: 667 mg Carbidopa/Levodopa (Carbidopa/Levodopa 25/100mg Tab) 1 tab PO TIDM [facility] Stop: 10/06/22 07:59 Last Admin: 09/07/22 08:30 Dose: 1 tab Docusate Sodium (Docusate Sodium 100 Mg Cap) 100 mg PO Q2D@0900 [facility] Stop: 10/06/22 08:59 Last Admin: 09/06/22 08:52 Dose: 100 mg Heparin Sodium (Porcine) (Heparin Sod 5,000 Unit/0.5 Ml Vial) 5,000 units SQ Q8 [facility] Stop: 10/06/22 00:00 Last Admin: 09/07/22 06:11 Dose: Not Given Ceftriaxone Sodium 2,000 mg/ (Dextrose) 70 mls @ 100 mls/hr IV Q24H [facility]; Protocol Stop: 09/13/22 00:59 Last Infusion: 09/07/22 03:08 Dose: Infused Sodium Chloride (Nss 1000ml) 1,000 mls @ 0 mls/hr IV .Q0M PRN PRN Reason: For Hemodialysis Use ONLY Stop: 09/07/22 13:51 Isosorbide Mononitrate (Isosorbide [place] Extended Rel 30 Mg Tabcr) 30 mg PO QPM [facility] Stop: 10/06/22 00:00 Last Admin: 09/06/22 22:03 Dose: 30 mg Levothyroxine Sodium (Levothyroxine Sodium 125 Mcg Tablet) 125 mcg PO DAILYBB [facility] Stop: 10/06/22 06:29 Last Admin: 09/07/22 06:11 Dose: 125 mcg Magnesium Hydroxide (Magnesium Hydroxide Susp 30 Ml Udc) 30 ml PO Q12H PRN PRN Reason: Constipation Stop: 10/06/22 00:00 Meclizine HCl (Meclizine 12.5 Mg Tab) 12.5 mg PO TID PRN PRN Reason: Dizziness Stop: 10/06/22 00:00 Last Admin: 09/07/22 08:28 Dose: 12.5 mg Melatonin (Melatonin 3 Mg Tab) 9 mg PO HS [facility] Stop: 10/06/22 20:59 Last Admin: 09/06/22 22:04 Dose: 9 mg Miscellaneous (Ferric Citrate [Auryxia] 210 Mg - Order Awaiting Action) 1 each N/A QS [facility] Stop: 10/06/22 07:59 Last Admin: 09/07/22 08:30 Dose: Not Given Mupirocin (Mupirocin 2% Oint 22 Gm Tube) 1 appln EXT BID [facility] Stop: 10/06/22 08:59 Last Admin: 09/07/22 08:29 Dose: 1 appln Nystatin (Nystatin Powder 15gm Btl) 1 appln EXT BID [facility] Stop: 10/06/22 00:00 Last Admin: 09/07/22 08:32 Dose: 1 appln Pantoprazole Sodium (Pantoprazole 40 Mg Tab) 40 mg PO BID [facility] Stop: 10/06/22 00:00 Last Admin: 09/07/22 08:29 Dose: 40 mg Polyethylene Glycol (Polyethylene (Miralax) 17 Gm Pack) 17 gm PO DAILY PRN PRN Reason: Constipation Stop: 10/06/22 00:00 Pregabalin (Pregabalin 100 Mg Cap) 100 mg PO BID [facility] Stop: 10/06/22 00:00 Last Admin: 09/07/22 08:38 Dose: 100 mg Sertraline HCl (Sertraline Hcl 100 Mg Tablet) 100 mg PO QPM [facility] Stop: 10/06/22 00:00 Last Admin: 09/06/22 22:07 Dose: 100 mg Vitamin B Complex/Folic Acid (Nephrocaps) 1 cap PO QPM [facility] Stop: 10/06/22 00:00 Last Admin: 09/06/22 22:05 Dose: 1 cap Vitamin D (Cholecalciferol 5,000 Units 125 Mcg Tab) 5,000 units PO QPM [facility] Stop: 10/06/22 00:00 Last Admin: 09/06/22 22:03 Dose: 5,000 units (2) Decubitus ulcer Pressure injury location: unspecified location Pressure injury stage: unspecified pressure injury stage Qualified Code(s): L89.90 - Pressure ulcer of unspecified site, unspecified stage (4) Anemia Anemia type: unspecified type Qualified Code(s): D64.9 - Anemia, unspecified
--- NOTE | 2022-09-07 14:10 | Dialysis Progress Note ---
Date of Service September 07, 2022 Assessment & Plan (1) ESRD (end stage renal disease) on dialysis: Plan: on TRSat HD as OP w/ uneventful tx day prior to admission. tolerating HD well today > got 2.4L off. -next HD on 09/10 or as needs dictate -no evidence of sepsis from decubiti to date -daily bmp, cbc (2) Anemia: Plan: multifactorial from GI losses, ESRD -on max dose LAVERNE therapy w/ HD and getting iron load w/ HD -continue GI /ADVOCACY DIRECTOR w/u -transfuse prn, ideally w/ HD txs Admission and Anticipated Discharge Date Admission Date: September 05, 2022 Subjective seen on HD. tolerating treatment well. buttock pain a bit better. not sure if she's still passing vaginal/rectal blood. no sob, no chest pain, no voiding c/o. Review of Systems Review of Systems: All systems reviewed & are unremarkable except as noted in Subjective Physical Exam Constitutional: well developed, well nourished, + morbidly obese, + frail appearing and cooperative Eyes: EOM intact bilaterally ENMT: Ears: no external ear abnormality Nose: no external nose abnormality Mouth: + dry oral mucous membranes Neck: no nuchal rigidity Respiratory: normal respiratory effort Auscultation: + diminished lung sounds Cardiovascular: Rate/Rhythm: regular rate and regular rhythm Extremities: + AV fistula; no edema Gastrointestinal (Abdomen): Inspection/Auscultation: normal bowel sounds Percussion/Palpation: abdomen soft; abdomen nontender Musculoskeletal: Extremities: strength 5/5 throughout Skin: no rashes, warm and dry Psychiatric: Orientation: alert and oriented x 3 (remains unreliable historian however) Results & Data Vital Signs (Past 12 Hours) Vital Signs Temp Pulse Pulse Pulse Resp BP BP 09/07/22 13:40 36.8 C 64 122/46 L 09/07/22 13:00 46 L 115/48 L 09/07/22 12:30 56 L 95/54 L 09/07/22 12:00 50 L 102/55 L 09/07/22 11:30 57 L 97/54 L 09/07/22 10:30 57 L 95/46 L 09/07/22 11:00 58 L 114/49 L 09/07/22 10:00 56 L 91/45 L 09/07/22 09:30 57 L 97/41 L 09/07/22 09:12 56 L 89/48 L 09/07/22 09:04 36.9 C 62 09/07/22 07:20 36.7 C 62 18 108/65 09/07/22 04:06 36.3 C L 63 20 103/48 L 09/07/22 03:26 Pulse Ox O2 Del Method O2 Flow Rate 09/07/22 13:40 09/07/22 13:00 09/07/22 12:30 09/07/22 12:00 09/07/22 11:30 09/07/22 10:30 09/07/22 11:00 09/07/22 10:00 09/07/22 09:30 09/07/22 09:12 09/07/22 09:04 09/07/22 07:20 93 Nasal Cannula 2 09/07/22 04:06 92 Nasal Cannula 2 09/07/22 03:26 Nasal Cannula Laboratory Results 09/06/22 06:36 09/06/22 06:36 (2) Anemia Anemia type: unspecified type Qualified Code(s): D64.9 - Anemia, unspecified
[2022-09-07 18:58] LABS: Appearance Urine Turbid (Clear); Bacteria Urine Automated 2+ (Negative); Bilirubin Urine Negative (Negative); Blood Urine 3+ (Negative); Color Urine Dark Yellow; Epithelial Cell Urine Auto >30 /lpf (0-5); Glucose Urine UA Negative (Negative); Ketones Urine Trace (Negative); Leukocyte Esterase Urine 3+ (Negative); Nitrite Urine Negative (Negative); Protein Urine 3+ (Negative); Specific Gravity Urine 1.015 (1.000-1.030); Urobilinogen Urine Negative (Negative); WBC Urine Automated >30 /hpf (0-5)
[2022-09-07 19:07] LABS: RBC Urine Automated 0-4 /hpf (0-4)
[2022-09-07 19:09] LABS: Cast Urine Automated 0 /lpf (0-5)
[2022-09-07] MEDS: ASPIRIN 81 MG ECTAB PO SCH (22:33)
[2022-09-07] MEDS: MELATONIN 3 MG TAB PO SCH (22:33)
[2022-09-07] MEDS: ATORVASTATIN 40 MG TAB PO SCH (22:34)
[2022-09-07] MEDS: CHOLECALCIFEROL 5,000 UNITS 125 MCG TAB PO SCH (22:36)
[2022-09-07] MEDS: ISOSORBIDE MONO EXTENDED REL 30 MG TABCR PO SCH (22:38)
[2022-09-07] MEDS: SERTRALINE HCL 100 MG TABLET PO SCH (22:39)
[2022-09-07] MEDS: NEPHROCAPS PO SCH (22:39)
[2022-09-08] MEDS: cefTRIAXone SODIUM 2,000 MG in DEXTROSE 5% 50 ML IV SCH (01:45)
[2022-09-08] MEDS: LEVOTHYROXINE SODIUM 125 MCG TABLET PO SCH (06:27)
[2022-09-08] MEDS: HEPARIN SOD 5,000 UNIT/0.5 ML VIAL SQ SCH ×3 (07:17→21:46)
[2022-09-08 07:20] LABS: Hematocrit (blood only) 27.7 % (37.0-47.0); Hemoglobin 8.6 g/dl (12.0-16.0); Mean Platelet Volume 10.8 fL (9.4-12.4); Nucleated RBC # (auto) 0.06 K/uL (0-0.12); Nucleated RBC % (auto) 0.9 %; Platelet Count 252 K/uL (130-400); RDW Coefficient of Variation 19.2 % (11.5-14.5); RDW Standard Deviation 70.8 fL (36.4-46.3); Red Blood Count 2.69 M/uL (4.20-5.40); White Blood Count 7.03 K/ul (4.8-10.8)
[2022-09-08 07:38] LABS: BUN Creatinine Ratio 3.9 (10-20); Calcium 9.2 mg/dl (8.6-10.3); Est GFR (African American) 8.8 ml/min; Est GFR (Non-African American) 7.6 ml/min; Potassium 4.1 mmol/L (3.5-5.1)
[2022-09-08] MEDS: CALCIUM ACETATE 667 MG CAP/TAB PO SCH ×3 (08:25→20:53)
[2022-09-08] MEDS: MECLIZINE 12.5 MG TAB PO PRN (08:25)
[2022-09-08] MEDS: CARBIDOPA/LEVODOPA 25/100MG TAB PO SCH ×3 (08:25→16:48)
[2022-09-08] MEDS: DOCUSATE SODIUM 100 MG CAP PO SCH (08:27)
[2022-09-08] MEDS: PANTOprazole 40 MG TAB PO SCH ×2 (08:30→20:58)
[2022-09-08] MEDS: MUPIROCIN 2% OINT 22 GM TUBE EXT SCH ×2 (08:31→20:57)
[2022-09-08] MEDS: NYSTATIN POWDER 15GM BTL EXT SCH ×2 (08:32→20:58)
[2022-09-08] MEDS: PREGABALIN 100 MG CAP PO SCH ×2 (09:40→20:50)
[2022-09-08] MEDS ORDERED: VANCOMYCIN CONSULT ACTIVE PRN (15:31)
--- NOTE | 2022-09-08 15:35 | Hospitalist Progress Note ---
Date of Service September 08, 2022 Assessment & Plan (1) UTI (urinary tract infection) due to Enterococcus: Plan: Urine culture 09/07 growing probable Enterococcus. Discontinue ceftriaxone and start on vancomycin D1 pending final urine culture results (2) Cellulitis of sacral region: Plan: Patient was sent to the ED after her dialysis session for evaluation of multiple wounds on her buttocks Per , patient was diagnosed with fungal infection by the visiting nurse and he is keeping the area dry with improvement. No leukocytosis or sepsis is present Per the wound image in the chart, the area is erythmatous with a quarter size area of skin breakdown on the left lower buttock/upper thigh area. Cont nystatin powder twice daily. (3) Decubitus ulcer: Plan: Plan as above, turn q2hrs. (4) Thickened endometrium: Plan: Seen by [facility]. Patient will need hysteroscopy D&C to rule out endometrial hyperplasia or malignancy. However due to her multiple comorbidities, [facility] will try to do the procedure at the same time as upcoming GI colonoscopy on September 20 vs on Friday by Dr. Castanon. We will follow-up with [facility]. (5) Anemia: Plan: Anemia of chronic kidney disease. Hemoglobin stable >8. Procrit per nephrology. Macrocytosis noted- will check B12 and folate (6) Acute GI bleeding: Plan: Patient has been recently evaluated for anemia by GI and gynecology. Patient was noted to have thickened endometrium on sonogram. Patient is planned to be admitted a day prior to September 20 for colonoscopy(to be done by Dr. Winston) and D&C with hysteroscopy ( by Dr. Castanon) Hemoglobin stable. (7) DM type 2 (diabetes mellitus, type 2): Plan: Type 2 diabetes mellitus; diet controlled with A1c of 5.3 in May 2022. Monitor glucose (8) LBBB (left bundle branch block): Plan: chronic (9) ESRD (end stage renal disease) on dialysis: Plan: Dialysis Friday per nephrology, as scheduled (10) Hypothyroidism: Plan: chronic, stable. Continue Synthroid (11) Parkinson disease: Plan: chronic, stable. Cont Sinemet per home regimen. DVT prophylaxis: heparin Dispo- pending final urine culture result, ?trailer sections assembler procedure this admission vs in September. PT OT cleared for home. Admission and Anticipated Discharge Date Admission Date: September 05, 2022 Subjective Patient was seen and examined at bedside. She states she is feeling better and denies any active issues. She is asking when she can go home. She states she has home oxygen and uses it as needed. No fever, chills, chest pain or shortness of breath, nausea or vomiting. Review of Systems Review of Systems: All systems reviewed & are unremarkable except as noted in Subjective Physical Exam Physical Exam: General: Morbidly obese female lying comfortably in bed, not in distress, on NC 2 L HEENT: EOMI, PITO, MMM Chest: Clear breath bilaterally with basilar rales CVS: Regular rate and rhythm, normal heart sounds, no murmur Abdomen: Soft, non tender, not distended, normal bowel sounds Neuro: Awake, alert, oriented, conversing well, non focal Extremities: No cyanosis, clubbing, no edema Results & Data Results & Data Vital Signs (Past 12 Hours) Vital Signs Temp Pulse Pulse Resp BP Pulse Ox O2 Del Method 09/08/22 14:49 60 09/08/22 13:53 Nasal Cannula 09/08/22 10:40 36.6 C 56 L 18 121/60 95 Nasal Cannula 09/08/22 07:35 57 L 09/08/22 07:30 36.6 C 59 L 16 127/60 97 Nasal Cannula 09/08/22 03:43 37 C 55 L 16 101/49 L 97 Nasal Cannula O2 Flow Rate 09/08/22 14:49 09/08/22 13:53 2 09/08/22 10:40 2 09/08/22 07:35 09/08/22 07:30 2 09/08/22 03:43 2 Laboratory Results Short CBC 09/08/22 Range/Units 06:17 WBC 7.03 (4.8-10.8) K/ul Hgb 8.6 L (12.0-16.0) g/dl Hct 27.7 L (37.0-47.0) % Plt Count 252 (130-400) K/uL BMP 09/08/22 06:17 Sodium 140 Potassium 4.1 Chloride 102 Carbon Dioxide 28 BUN 20 Creatinine 5.14 H* Glucose 110 H Calcium 9.2 Urine 09/07/22 Range/Units Unknown Urine Color Dark Yellow Urine Appearance Turbid A (Clear) Urine pH 6.0 (4.5-7.5) Ur Specific [place] 1.015 (1.000-1.030) Urine Protein 3+ H (Negative) Urine Glucose (UA) Negative (Negative) Medications Administered Current Inpatient Medications Acetaminophen (Acetaminophen 325 Mg Tab) 650 mg PO Q4H PRN PRN Reason: Pain or Fever Stop: 10/06/22 00:00 Al Hydrox/Mg Hydrox/Simethicone (Aluminum/Magnesium Susp 30 Ml Udc) 15 ml PO Q4H PRN PRN Reason: Dyspepsia Stop: 10/06/22 00:00 Aspirin (Aspirin 81 Mg Ectab) 162 mg PO QPM [facility] Stop: 10/06/22 00:00 Last Admin: 09/07/22 22:33 Dose: 162 mg Atorvastatin Calcium (Atorvastatin 40 Mg Tab) 80 mg PO QPM [facility] Stop: 10/06/22 00:00 Last Admin: 09/07/22 22:34 Dose: 80 mg Calcium Acetate (Calcium Acetate 667 Mg Cap/Tab) 667 mg PO TID [facility] Stop: 10/06/22 00:00 Last Admin: 09/08/22 13:41 Dose: 667 mg Carbidopa/Levodopa (Carbidopa/Levodopa 25/100mg Tab) 1 tab PO TIDM [facility] Stop: 10/06/22 07:59 Last Admin: 09/08/22 12:52 Dose: 1 tab Docusate Sodium (Docusate Sodium 100 Mg Cap) 100 mg PO Q2D@0900 [facility] Stop: 10/06/22 08:59 Last Admin: 09/08/22 08:27 Dose: 100 mg Heparin Sodium (Porcine) (Heparin Sod 5,000 Unit/0.5 Ml Vial) 5,000 units SQ Q8 [facility] Stop: 10/06/22 00:00 Last Admin: 09/08/22 08:25 Dose: 5,000 units Vancomycin HCl 1,000 mg/ (Sodium Chloride) 270 mls @ 200 mls/hr IV Q12H [facility]; Protocol Stop: 09/18/22 15:44 Isosorbide Mononitrate (Isosorbide [place] Extended Rel 30 Mg Tabcr) 30 mg PO QPM [facility] Stop: 10/06/22 00:00 Last Admin: 09/07/22 22:38 Dose: 30 mg Levothyroxine Sodium (Levothyroxine Sodium 125 Mcg Tablet) 125 mcg PO DAILYBB [facility] Stop: 10/06/22 06:29 Last Admin: 09/08/22 06:27 Dose: 125 mcg Magnesium Hydroxide (Magnesium Hydroxide Susp 30 Ml Udc) 30 ml PO Q12H PRN PRN Reason: Constipation Stop: 10/06/22 00:00 Meclizine HCl (Meclizine 12.5 Mg Tab) 12.5 mg PO TID PRN PRN Reason: Dizziness Stop: 10/06/22 00:00 Last Admin: 09/08/22 08:25 Dose: 12.5 mg Melatonin (Melatonin 3 Mg Tab) 9 mg PO HS [facility] Stop: 10/06/22 20:59 Last Admin: 09/07/22 22:33 Dose: 9 mg Miscellaneous (Ferric Citrate [Auryxia] 210 Mg - Order Awaiting Action) 1 each N/A QS [facility] Stop: 10/06/22 07:59 Last Admin: 09/08/22 08:31 Dose: Not Given Miscellaneous Information (Vancomycin Consult Active) 1 each N/A UD PRN PRN Reason: Consult Stop: 10/08/22 15:30 Mupirocin (Mupirocin 2% Oint 22 Gm Tube) 1 appln EXT BID [facility] Stop: 10/06/22 08:59 Last Admin: 09/08/22 08:31 Dose: 1 appln Nystatin (Nystatin Powder 15gm Btl) 1 appln EXT BID [facility] Stop: 10/06/22 00:00 Last Admin: 09/08/22 08:32 Dose: 1 appln Pantoprazole Sodium (Pantoprazole 40 Mg Tab) 40 mg PO BID [facility] Stop: 10/06/22 00:00 Last Admin: 09/08/22 08:30 Dose: 40 mg Polyethylene Glycol (Polyethylene (Miralax) 17 Gm Pack) 17 gm PO DAILY PRN PRN Reason: Constipation Stop: 10/06/22 00:00 Pregabalin (Pregabalin 100 Mg Cap) 100 mg PO BID [facility] Stop: 10/06/22 00:00 Last Admin: 09/08/22 09:40 Dose: 100 mg Sertraline HCl (Sertraline Hcl 100 Mg Tablet) 100 mg PO QPM [facility] Stop: 10/06/22 00:00 Last Admin: 09/07/22 22:39 Dose: 100 mg Vitamin B Complex/Folic Acid (Nephrocaps) 1 cap PO QPM [facility] Stop: 10/06/22 00:00 Last Admin: 09/07/22 22:39 Dose: 1 cap Vitamin D (Cholecalciferol 5,000 Units 125 Mcg Tab) 5,000 units PO QPM [facility] Stop: 10/06/22 00:00 Last Admin: 09/07/22 22:36 Dose: 5,000 units (3) Decubitus ulcer Pressure injury location: unspecified location Pressure injury stage: unspecified pressure injury stage Qualified Code(s): L89.90 - Pressure ulcer of unspecified site, unspecified stage (5) Anemia Anemia type: unspecified type Qualified Code(s): D64.9 - Anemia, unspecified
[2022-09-08] MEDS ORDERED: VANCOMYCIN HCL 1,000 MG in SODIUM CHLORIDE 0.9% 250 ML IV SCH (15:45)
[2022-09-08] MEDS ORDERED: VANCOMYCIN HCL 1,750 MG in SODIUM CHLORIDE 0.9% 500 ML IV ONE (16:00)
--- NOTE | 2022-09-08 16:15 | Pharmacy Report ---
Pharmacy PK ABX Note - Date of Service September 08, 2022 - Assessment and Plan Assessment * 76 year old F receiving vancomycin for treatment of UTI * Pertinent microbiologic data includes: urine culture with probable Enterococcus * PMH: ESRD on HD TuThSa, DM, COPD, Parkinsons * Patient last dialyzed yesterday Plan Vancomycin * Loading dose: 1750 mg IV x 1 * Will dose via level given HD * Random level ordered for tomorrow AM Pharmacy will continue to follow and will adjust dose/frequency as necessary. Thank you. Pharmacy has transitioned to AUC monitoring for vancomycin. AUC/MOOK is the preferred PK/PD target and is associated with decreased risk of nephrotoxicity compared to traditional trough targets.
[2022-09-08] MEDS: MELATONIN 3 MG TAB PO SCH (20:51)
[2022-09-08] MEDS: ASPIRIN 81 MG ECTAB PO SCH (20:52)
[2022-09-08] MEDS: ATORVASTATIN 40 MG TAB PO SCH (20:53)
[2022-09-08] MEDS: ISOSORBIDE MONO EXTENDED REL 30 MG TABCR PO SCH (20:54)
[2022-09-08] MEDS: CHOLECALCIFEROL 5,000 UNITS 125 MCG TAB PO SCH (20:54)
[2022-09-08] MEDS: NEPHROCAPS PO SCH (20:57)
[2022-09-08] MEDS: SERTRALINE HCL 100 MG TABLET PO SCH (20:58)
[2022-09-09] MEDS: HEPARIN SOD 5,000 UNIT/0.5 ML VIAL SQ SCH ×2 (05:46→12:38)
[2022-09-09] MEDS: LEVOTHYROXINE SODIUM 125 MCG TABLET PO SCH (05:46)
[2022-09-09 06:18] LABS: Hematocrit (blood only) 27.7 % (37.0-47.0); Hemoglobin 8.6 g/dl (12.0-16.0); Mean Platelet Volume 10.5 fL (9.4-12.4); Nucleated RBC # (auto) 0.02 K/uL (0-0.12); Nucleated RBC % (auto) 0.2 %; Platelet Count 237 K/uL (130-400); RDW Coefficient of Variation 19.1 % (11.5-14.5); RDW Standard Deviation 71.7 fL (36.4-46.3); Red Blood Count 2.69 M/uL (4.20-5.40); White Blood Count 8.18 K/ul (4.8-10.8)
[2022-09-09 06:27] LABS: BUN Creatinine Ratio 4.2 (10-20); Creatinine Clr Calc Pharmacy 7.3 ml/min; Est GFR (African American) 5.5 ml/min; Est GFR (Non-African American) 4.7 ml/min; Magnesium 2.1 mg/dl (1.7-2.4); Potassium 4.3 mmol/L (3.5-5.1)
[2022-09-09 06:50] LABS: Vitamin B12 1026 pg/ml (180-914)
[2022-09-09] MEDS: MECLIZINE 12.5 MG TAB PO PRN (08:27)
[2022-09-09] MEDS: CARBIDOPA/LEVODOPA 25/100MG TAB PO SCH ×2 (08:27→12:38)
[2022-09-09] MEDS: CALCIUM ACETATE 667 MG CAP/TAB PO SCH ×2 (08:28→12:38)
[2022-09-09] MEDS: PANTOprazole 40 MG TAB PO SCH (08:28)
[2022-09-09] MEDS: MUPIROCIN 2% OINT 22 GM TUBE EXT SCH (08:28)
[2022-09-09] MEDS: PREGABALIN 100 MG CAP PO SCH (08:37)
[2022-09-09] MEDS: NYSTATIN POWDER 15GM BTL EXT SCH (08:37)
--- NOTE | 2022-09-09 15:13 | Discharge Summary ---
Date of Service September 09, 2022 Admission HPI Per Admitting Provider History obtained from chart review, interview with patient and her . Past medical history of type 2 diabetes mellitus, hypothyroidism, COPD, ESRD on hemodialysis, anemia, rheumatoid arthritis. Patient was sent to the ED after her dialysis session for evaluation of multiple wounds on her buttocks by Dr. Busby (nephrology) Patient has been had noted redness in her perineal region several weeks ago; was advised to dry the area by visiting nurse. He reports that it has been improving. Patient denies fever, chills or any purulent discharge from the wound. Patient is wheelchair-bound and requires process assistant by her for most of her ADLs. Patient has been recently evaluated for anemia by GI and gynecology. Patient was noted to have thickened endometrium on sonogram. Patient is planned to be admitted a day prior to September 20 for colonoscopy(to be done by Dr. Winston) and D&C with hysteroscopy ( by Dr. Castanon) On presentation to the ED, patient was afebrile, normotensive and saturating well in room air. CBC remarkable for anemia with hemoglobin at 8.6. No leukocytosis. Creatinine elevated consistent with ESRD. Lactate 2.0. Chest x-ray personally reviewed; no infiltrates. EKG personally reviewed; normal sinus rhythm with left bundle branch block and PVCs. Admission Exam Per Admitting Provider Constitutional: WD/WN, vitals as above, NAD, sitting up in bed, pleasant, conversing easily Respiratory: normal respiratory effort, lungs clear to auscultation, no wheeze, rales, rhonchi. Normal insp/exp effort, no accessory muscle use Cardiovascular: RRR, no murmur, no edema Vessels: no JVD or carotid bruit Chest: normal inspection of chest Abdomen: normal bowel sounds, soft, nontender, no hepatosplenomegaly Musculoskeletal: no cyanosis or clubbing, extremities motor strength 5/5. Has fistula on her right arm with bandages over it. Skin: Perineal skin examination reveals erythema with superficial skin breakdown. No significant ulceration skin visualized Neurologic: PERRL, EOMI, accommodation nl, no face palsy, no dysarthria CN's II- XI intact bilaterally and moves all extremities Psychiatric: A+Ox3, euthymic affect Principal Diagnosis Enterococcus UTI, sacral erythema Discharge Exam General: Morbidly obese female lying comfortably in bed, not in distress, on NC 2 L HEENT: EOMI, PITO, MMM Chest: Clear breath bilaterally with basilar rales CVS: Regular rate and rhythm, normal heart sounds, no murmur Abdomen: Soft, non tender, not distended, normal bowel sounds Neuro: Awake, alert, oriented, conversing well, non focal Extremities: No cyanosis, clubbing, no edema Discharge Data Allergies Allergy/AdvReac Type Severity Reaction Status Date / Time No Known Allergies Allergy Verified 09/05/22 19:18 Consultations 09/05/22 20:39 ED Decision to Admit Stat 09/06/22 08:00 Consult Nephrology Routine 09/06/22 15:14 Consult Gastroenterology Routine Consult Gynecology Routine Laboratory Results WBC 8.18 K/ul (4.8-10.8) 09/09/22 05:47 RBC 2.69 M/uL (4.20-5.40) L 09/09/22 05:47 Hgb 8.6 g/dl (12.0-16.0) L 09/09/22 05:47 Hct 27.7 % (37.0-47.0) L 09/09/22 05:47 MCV 103.0 fL (80.0-100.0) H 09/09/22 05:47 MCH 32.0 pg (25.0-34.0) 09/09/22 05:47 MCHC 31.0 g/dL (32.0-36.0) L 09/09/22 05:47 RDW Std Deviation 71.7 fL (36.4-46.3) H 09/09/22 05:47 RDW Coeff of Bhavin 19.1 % (11.5-14.5) H 09/09/22 05:47 Plt Count 237 K/uL (130-400) 09/09/22 05:47 MPV 10.5 fL (9.4-12.4) 09/09/22 05:47 Immature Gran % (Auto) 1.8 % 09/06/22 06:36 Neut % (Auto) 64.2 % 09/06/22 06:36 Lymph % (Auto) 16.0 % 09/06/22 06:36 [place] % (Auto) 12.2 % 09/06/22 06:36 Eos % (Auto) 4.6 % 09/06/22 06:36 Baso % (Auto) 1.2 % 09/06/22 06:36 Neut # (Auto) 4.98 K/uL (1.40-6.50) 09/06/22 06:36 Lymph # (Auto) 1.24 K/uL (1.2-3.4) 09/06/22 06:36 [place] # (Auto) 0.95 K/uL (0.11-0.59) H 09/06/22 06:36 Eos # (Auto) 0.36 K/uL (0-0.50) 09/06/22 06:36 Baso # (Auto) 0.09 K/uL (0-0.2) 09/06/22 06:36 Immature Gran # (Auto) 0.14 K/uL (0.01-0.20) 09/06/22 06:36 Absolute Nucleated RBC 0.02 K/uL (0-0.12) 09/09/22 05:47 Nucleated RBC % (auto) 0.2 % 09/09/22 05:47 ESR 50 mm/hr (0-30) H 09/06/22 06:36 PT 10.0 Seconds (9.0-12.0) 09/05/22 20:30 INR 0.9 (0.9-1.1) 09/05/22 20:30 APTT 28.6 Seconds (21.0-31.0) 09/05/22 20:30 PTT Ratio 1.0 09/05/22 20:30 Sodium 140 mmol/L (136-145) 09/09/22 05:47 Potassium 4.3 mmol/L (3.5-5.1) 09/09/22 05:47 Chloride 103 mmol/L (98-107) 09/09/22 05:47 Carbon Dioxide 26 mmol/L (21-32) 09/09/22 05:47 Anion Gap 11 (3-11) 09/09/22 05:47 BUN 32 mg/dl (6-23) H 09/09/22 05:47 Creatinine 7.62 mg/dl (0.6-1.2) H* D 09/09/22 05:47 Est Cr Clr Drug Dosing 7.3 ml/min 09/09/22 05:47 Est GFR ( Amer) 5.5 ml/min 09/09/22 05:47 Est GFR (Non-Af Amer) 4.7 ml/min 09/09/22 05:47 BUN/Creatinine Ratio 4.2 (10-20) L 09/09/22 05:47 Glucose 97 mg/dl (70-99(Fasting)) 09/09/22 05:47 POC Glucose 136 mg/dl (70-99) H 09/07/22 15:14 Lactate 2.0 mmol/L (0.4-2.0) 09/05/22 17:51 Calcium 9.0 mg/dl (8.6-10.3) 09/09/22 05:47 Phosphorus 6.0 mg/dl (2.5-4.9) H 09/08/22 06:17 Magnesium 2.1 mg/dl (1.7-2.4) 09/09/22 05:47 Total Bilirubin 0.2 mg/dl (0.2-1.0) 09/06/22 06:36 Direct Bilirubin 0.1 mg/dl (0-0.2) 09/05/22 20:30 AST 16 U/L (13-39) 09/06/22 06:36 ALT 5 U/L (7-52) L 09/06/22 06:36 Alkaline Phosphatase 63 U/L (34-104) 09/06/22 06:36 Troponin I High Sens 11.9 pg/ml (0-14) 09/05/22 17:51 C-Reactive Protein 1.63 mg/dl (0-0.5) H 09/06/22 06:36 Total Protein 6.2 gm/dl (6.0-8.3) 09/06/22 06:36 Albumin 3.3 gm/dl (3.4-5.0) L 09/06/22 06:36 Globulin 2.9 gm/dl (2.5-4.0) 09/06/22 06:36 Albumin/Globulin Ratio 1.1 (0.9-2) 09/06/22 06:36 Vitamin B12 1026 pg/ml (180-914) H 09/09/22 05:47 Folate > 22.30 ng/ml (>5.38) 09/09/22 05:47 Procalcitonin 1.14 ng/ml (0-0.5) H 09/05/22 17:51 Urine Color Dark Yellow 09/07/22 Unknown Urine Appearance Turbid (Clear) A 09/07/22 Unknown Urine pH 6.0 (4.5-7.5) 09/07/22 Unknown Ur Specific [place]illity 1.015 (1.000-1.030) 09/07/22 Unknown Urine Protein 3+ (Negative) H 09/07/22 Unknown Urine Glucose (UA) Negative (Negative) 09/07/22 Unknown Urine Ketones Trace (Negative) H 09/07/22 Unknown Urine Blood 3+ (Negative) H 09/07/22 Unknown Urine Nitrite Negative (Negative) 09/07/22 Unknown Urine Bilirubin Negative (Negative) 09/07/22 Unknown Urine Urobilinogen Negative (Negative) 09/07/22 Unknown Ur Leukocyte Esterase 3+ (Negative) H 09/07/22 Unknown Urine WBC (Auto) >30 /hpf (0-5) H 09/07/22 Unknown Urine RBC (Auto) 0-4 /hpf (0-4) 09/07/22 Unknown U Hyaline Cast (Auto) 0 /lpf (0-5) 09/07/22 Unknown U Epithel Cells (Auto) >30 /lpf (0-5) H 09/07/22 Unknown Urine Bacteria (Auto) 2+ (Negative) H 09/07/22 Unknown Urine Yeast Not Reportable 09/07/22 Unknown Nasal Screen MRSA (PCR) Positive (Negative) A 09/06/22 01:50 Random Vancomycin 21.9 mcg/ml (10-20) H 09/09/22 05:47 SARS-CoV-2, RNA, NAAT NEGATIVE (NEGATIVE) 09/05/22 Unknown Blood Type O Positive 09/05/22 18:41 Antibody Screen NEGATIVE 09/05/22 18:41 Impressions Chest X-Ray 09/05/22 17:51 XR chest 1V portable CLINICAL HISTORY: Sepsis. COMPARISON STUDY: Chest radiograph and chest CT May 23, 2022. FINDINGS: There is no pneumothorax or pleural effusion. Cardiomegaly is unchanged. There is no evidence for pulmonary edema. There is no consolidation to suggest pneumonia. There has been no significant change in appearance of the chest. IMPRESSION: No acute cardiopulmonary findings. Stable cardiomegaly. ACT 112: Negative or not required by law. Electronically signed by: Bryn Tanner M.D. 09/06/2022 7:25 AM Hospital Course (1) UTI (urinary tract infection) due to Enterococcus: Urine culture 09/07 growing Enterococcus, pansensitive. Started on vancomycin empirically and was changed to amoxicillin (renally dosed) at discharge for 1 more week. (2) Cellulitis of sacral region: Patient was sent to the ED after her dialysis session for evaluation of multiple wounds on her buttocks Per , patient was diagnosed with fungal infection by the visiting nurse and he is keeping the area dry with improvement. No leukocytosis or sepsis is present Per the wound image in the chart, the area is erythmatous with a quarter size area of skin breakdown on the left lower buttock/upper thigh area. Cont nystatin powder twice daily. Continue local wound care (3) Decubitus ulcer: Plan as above, turn q2hrs. (4) Thickened endometrium: Seen by ROTATING EQUIPMENT SPECIALIST. Patient will need hysteroscopy D&C to rule out endometrial hyperplasia or malignancy. However due to her multiple comorbidities, ROTATING EQUIPMENT SPECIALIST will try to do the procedure at the same time as upcoming GI colonoscopy on September 20 (5) Anemia: Anemia of chronic kidney disease. Hemoglobin stable >8. Procrit per nephrology. Macrocytosis noted-however B12 and folate level normal (6) Acute GI bleeding: Patient has been recently evaluated for anemia by GI and gynecology. Patient was noted to have thickened endometrium on sonogram. Patient is planned to be admitted a day prior to September 20 for colonoscopy(to be done by Dr. Winston) and D&C with hysteroscopy ( by Dr. Castanon) Hemoglobin stable. (7) DM type 2 (diabetes mellitus, type 2): Type 2 diabetes mellitus; diet controlled with A1c of 5.3 in May 2022. A1c unreliable in setting of anemia and ESRD. (8) LBBB (left bundle branch block): chronic (9) ESRD (end stage renal disease) on dialysis: Dialysis Friday per nephrology, as scheduled (10) Hypothyroidism: chronic, stable. Continue Synthroid (11) Parkinson disease: chronic, stable. Cont Sinemet per home regimen. Patient is comfortable and stable for discharge home. I spoke to his over the phone and provided discharge instructions. Total Time Total Time Spent Total Time Spent (In Minutes): 45 Discharge Plan Discharge Items Patient Disposition: Home - Self-Care Reason For Visit: SACRAL CELLULITIS Discharge Diagnosis: Enterococcal UTI, sacral erythema Activity: Resume your previous activity Non-emergency contact: Primary Care Provider Call non-emergency contact if: you have any medication questions, your symptoms worsen and you have a fever Follow-up/Referrals: Bella Villanueva MD [Primary Care Provider] - Diet: Dialysis Renal Addtl Attending Provider Instructions: Continue the antibiotic for 1 more week for your urinary tract infection. Local wound care for your sacral wound. Keep it dry. Nystatin powder twice daily to prevent fungal infection. Follow up with wound care and family doctor Follow up as scheduled for the colonoscopy and gynecologic procedure on September 20 as planned before. Dialysis as scheduled Pending Studies at Discharge: No Stand-Alone Forms: My [employer], Smoking Cessation Medications and DC Order Prescriptions: New mupirocin 2 % Ointment 1 applic EXT BID Qty: 15 0RF nystatin [Nystop] 100,000 unit/gram Powder 1 applic EXT BID Qty: 30 0RF amoxicillin 500 mg tablet 500 mg PO BID Qty: 14 0RF Continued atorvastatin 80 mg tablet 80 mg PO QPM isosorbide mononitrate 30 mg tablet extended release 24 hr 30 mg PO QPM sertraline 100 mg tablet 100 mg PO QPM aspirin 81 mg Tablet,Delayed Release (Dr/Ec) 162 mg PO QPM Patient Comments: afternoon hours lidocaine-prilocaine 2.5-2.5 % cream 1 applic topical DIRECTED PRN (Reason: 1 HR PRIOR TO DIALYSIS) Rx Instructions: Apply small amount to access site 1 hr before dialysis. levothyroxine 125 mcg tablet 125 mcg PO QAM docusate sodium [Colace] 100 mg Capsule 100 mg PO Q2D Rx Instructions: 3 times per week carbidopa-levodopa 25-100 mg tablet 1 tab PO TIDM calcium acetate(phosphat bind) 667 mg capsule 667 mg PO TID pregabalin 100 mg capsule 100 mg PO BID Patient Comments: on dialysis days takes 2 in the evening , , and saturdays Rx Instructions: MAY TAKE AN EXTRA DOSE AFTER DIALYSIS IF NEEDED. cholecalciferol (vitamin D3) [Vitamin D3] 125 mcg (5,000 unit) Tablet 125 mcg PO QPM Auryxia 210 mg iron Tablet 210 mg PO TID Rx Instructions: administer with a meal Nanci-Samuel 0.8 mg Tablet 1 tab PO QPM pantoprazole 20 mg tablet,delayed release (DR/EC) 20 mg PO BID acetaminophen [Tylenol] 325 mg Tablet 650 mg PO Q6H PRN (Reason: Pain) meclizine 12.5 mg Tablet 12.5 mg PO TID PRN (Reason: Dizziness) hydrocortisone 2.5 % Cream With Perineal Applicator 1 applic IA DAILY PRN (Reason: Hemorrhoids) epinephrine [EpiPen] 0.3 mg/0.3 mL Auto-Injector 0.3 mg IM DIRECTED PRN (Reason: Allergic Reaction) melatonin 10 mg Tablet 10 mg PO HS Discharge Orders: Discharge Order (Routine); Ordered 09/09/22 Ordered By: Seferino Lorenzo/Other Patient Handouts: Urinary Tract Infections in Women Admission Data Admit Date/Time: 09/05/22 21:00 Attending Provider: Seferino Obrien Admit Provider: Gerard Shea Primary Care Provider: Bella Villanueva Other Providers: Gerard Shea ; Erica Tobar ; Walter Baig ; Sofia Sinclair Japheth E. ; Katarzyna Emmanuel ; Marysol Hart ; Garrett Chang ; Carmencita Wiggins
[2022-09-09] MEDS ORDERED: AMPICILLIN 2,000 MG in SODIUM CHLOR 0.9% AD-VAN 100 ML IV SCH (18:00)
== END 2022-09-09 16:15 | disposition home or self-care (01) | DRG 602 ==
LOC: ED 17:29 → SUATTDRO 21:00 → 2W 21:00

== ENCOUNTER 2022-09-19 07:19 | Inpatient (IN) ==
--- NOTE | 2022-09-12 16:05 | Anesthesiology Consultation ---
Date of Service September 12, 2022 Assessment & Plan (1) Encounter for pre-operative examination: Plan - check BSG, CBC with diff and BMP STAT am DOS. To anesthesiologist discretion if updated EKG is needed given PCP notation on possible bigeminy and if cervical spine imaging is needed DOS given rheumatoid arthritis. Labs completed 09/19/22, case discussed with Dr. Kim who advised also repeating CBC with diff and BMP am DOS as ordered. - Wesley is POA and will be present DOS per PAT estimation manager call. - per PAT RN call, pt will be admitted to hospital 09/19/22 to prepare patient for colonoscopy prep. - Pino lift needed. - ESRD: dialysis Friday, and Friday. - Right arm restriction. - PCP office note 09/12/22 [facility]: "...admitted to [facility] 09/05, discharged 09/09 for sacral ulcers, noted during her dialysis treatment. Home on amoxicillin...getting scoped and having a hysteroscopy on 09/20...last A1c we have was 5.3...heart faint and she sounds like she might be in bigeminy with a variable intensity..." - discharge summary 09/09/22 [facility]: "...UTI (urinary tract infection) due to Enterococcus: Urine culture 09/07 growing Enterococcus, pansensitive. Started on vancomycin empirically and was changed to amoxicillin (renally dosed) at discharge for 1 more week. Cellulitis of sacral region...multiple wounds on her buttocks. Per , patient was diagnosed with fungal infection by the visiting nurse and he is keeping the area dry with improvement. No leukocytosis or sepsis is present. Per the wound image in the chart, the area is erythmatous with a quarter size area of skin breakdown on the left lower buttock/upper thigh area. Cont nystatin powder twice daily. Continue local wound care...Anemia of chronic kidney disease. Hemoglobin stable >8. Procrit per nephrology. Macrocytosis noted-however B12 and folate level normal. Acute GI b leeding...recently evaluated for anemia by GI and gynecology...noted to have thickened endometrium on sonogram...planned to be admitted a day prior to September 20 for colonoscopy(to be done by Dr. Winston) and D&C with hysteroscopy (by Dr. Lg) Hemoglobin stable...LBBB (left bundle branch block): chronic...ESRD (end stage renal disease) on dialysis: Dialysis Friday per nephrology, a s scheduled..." - Case discussed in detail with Dr. Breen who advised patient is acceptable to proceed and agrees with plan as above. - COVID screening: Per ruffler on 09/11/2022: Travel screen negative, no known COVID-19 positive contacts or current COVID-19 related symptoms in past 2 weeks. To surgeon's discretion if preop COVID testing is needed. Chart Review Chart Review: Acceptable Risk for Surgery and Patient NOT seen in Pre Admission Testing Consults Requested medical & cardiac Pulmonary ASA ASA3 Proposed Anesthesia Anesthesia Type: General History Surgery Operation Date: 09/20/22 11:40 Proposed Procedures s Examination of Anestheisa, Dilation and Curettage - MD gege Mchugh Hysteroscopy - Frandy Castanon MD p Colonoscopy - Jenny Winston DO Height/Weight Height: 5 ft 2 in Weight: 99.79 kg Allergies Allergy/AdvReac Type Severity Reaction Status Date / Time No Known Allergies Allergy Verified 09/11/22 09:39 Medications Home Medications Medication Instructions Recorded Confirmed Last Taken aspirin 81 mg tablet,delayed 162 mg PO QPM 11/15/21 09/18/22 09/04/22 release atorvastatin 80 mg tablet 80 mg PO QPM 11/15/21 09/18/22 09/04/22 calcium acetate(phosphat bind) 667 667 mg PO TIDM 11/15/21 09/18/22 09/05/22 07:00 mg capsule carbidopa 25 mg-levodopa 100 mg 1 tab PO TIDM 11/15/21 09/18/22 09/05/22 07:00 tablet cholecalciferol (vitamin D3) 125 125 mcg PO QPM 11/15/21 09/18/22 09/04/22 mcg (5,000 unit) tablet (Vitamin D3) docusate sodium 100 mg capsule 100 mg PO Q2D 11/15/21 09/18/22 09/04/22 (Colace) isosorbide mononitrate 30 mg 30 mg PO QPM 11/15/21 09/18/22 09/04/22 tablet,extended release 24 hr levothyroxine 125 mcg tablet 125 mcg PO QAM 11/15/21 09/18/22 09/04/22 lidocaine-prilocaine 2.5 %-2.5 % 1 applic topical DIRECTED PRN 1 11/15/21 09/18/22 09/05/22 topical cream HR PRIOR TO DIALYSIS pregabalin 100 mg capsule 100 mg PO BID 11/15/21 09/18/22 09/04/22 sertraline 100 mg tablet 100 mg PO QPM 11/15/21 09/18/22 09/04/22 ferric citrate 210 mg iron tablet 210 mg PO TIDM 04/16/22 09/18/22 09/05/22 07:00 (Auryxia) vitamin B complex-vitamin C-folic 1 tab PO QPM 04/16/22 09/18/22 09/04/22 acid 0.8 mg tablet (Nanci-Samuel) pantoprazole 20 mg tablet,delayed 20 mg PO BID 05/23/22 09/18/22 09/04/22 release acetaminophen 325 mg tablet 650 mg PO Q6H PRN Pain 09/05/22 09/18/22 Unknown (Tylenol) epinephrine 0.3 mg/0.3 mL 0.3 mg IM DIRECTED PRN Allergic 09/05/22 09/18/22 Unknown injection, auto-injector (EpiPen) Reaction hydrocortisone 2.5 % topical cream 1 applic [place] DAILY PRN Hemorrhoids 09/05/22 09/18/22 Unknown with perineal applicator meclizine 12.5 mg tablet 12.5 mg PO TID PRN Dizziness 09/05/22 09/18/22 Unknown melatonin 10 mg tablet 10 mg PO HS 09/05/22 09/18/22 09/04/22 mupirocin 2 % topical ointment 1 applic EXT BID #15 grams 09/09/22 09/18/22 Unknown nystatin 100,000 unit/gram topical 1 applic EXT BID #30 grams 09/09/22 09/18/22 Unknown powder (Nystop) Active Medications Generic Name Dose Route Start Last Admin Trade Name Freq PRN Reason Stop Dose Admin Acetaminophen 650 mg 09/19/22 07:00 09/20/22 07:24 Acetaminophen 325 Mg Tab PO 10/19/22 06:59 650 mg Q4H PRN Administration Pain or Fever Atorvastatin Calcium 80 mg 09/19/22 21:00 09/19/22 20:23 Atorvastatin 40 Mg Tab PO 10/19/22 20:59 80 mg QPM BAYRON Administration Calcium Acetate 667 mg 09/19/22 12:00 09/20/22 08:31 Calcium Acetate 667 Mg Cap/Tab PO 10/19/22 11:59 667 mg TIDM BAYRON Administration Carbidopa/Levodopa 1 tab 09/19/22 10:05 09/20/22 08:31 Carbidopa/Levodopa 25/100mg Tab PO 10/19/22 10:04 1 tab TIDM BAYRON Administration Sodium Chloride 1,000 mls @ 15 mls/hr 09/20/22 06:00 09/20/22 05:40 Nss 1000ml IV 09/21/22 05:59 15 mls/hr .Q24H BAYRON Administration Insulin Aspart 0 units 09/20/22 06:00 09/20/22 05:52 Insulin Aspart Per Unit Charge SC 10/20/22 05:59 Not Given Q6 BAYRON Isosorbide Mononitrate 30 mg 09/19/22 21:00 09/19/22 20:24 Isosorbide Mcmullen Extended Rel 30 Mg Tabcr PO 10/19/22 20:59 30 mg QPM BAYRON Administration Levothyroxine Sodium 125 mcg 09/20/22 06:30 09/20/22 04:27 Levothyroxine Sodium 125 Mcg Tablet PO 10/20/22 06:29 125 mcg DAILYBB BAYRON Administration Melatonin 9 mg 09/19/22 21:00 09/19/22 21:16 Melatonin 3 Mg Tab PO 10/19/22 20:59 9 mg HS BAYRON Administration Miscellaneous 1 each 09/19/22 16:00 09/20/22 08:33 Auryxia 210mg--Order Awaiting Action N/A 10/19/22 15:59 Not Given QS BAYRON Mupirocin 1 appln 09/19/22 10:05 09/20/22 08:32 Mupirocin 2% Oint 22 Gm Tube EXT 10/19/22 10:04 1 appln BID BAYRON Administration Nystatin 1 appln 09/19/22 21:00 09/20/22 08:56 Nystatin Powder 15gm Btl EXT 10/19/22 20:59 1 appln BID BAYRON Administration Pantoprazole Sodium 40 mg 09/19/22 10:05 09/20/22 09:53 Pantoprazole 40 Mg Tab PO 10/19/22 10:04 40 mg BID BAYRON Administration Pregabalin 100 mg 09/19/22 10:30 09/20/22 08:55 Pregabalin 100 Mg Cap PO 10/19/22 10:29 100 mg BID BAYRON Administration Sertraline HCl 100 mg 09/19/22 21:00 09/19/22 20:24 Sertraline Hcl 100 Mg Tablet PO 10/19/22 20:59 100 mg QPM BAYRON Administration Vitamin B Complex/Folic Acid 1 cap 09/19/22 21:00 09/19/22 20:24 Nephrocaps PO 10/19/22 20:59 1 cap QPM BAYRON Administration Vitamin D 5,000 units 09/19/22 21:00 09/19/22 20:24 Cholecalciferol 5,000 Units 125 Mcg Tab PO 10/19/22 20:59 5,000 units QPM BAYRON Administration Past Medical History Medical History Aspiration pneumonia HX AV fistula R arm Black stools Chronic diastolic heart failure EF 50% on 01/2020 echo COPD (chronic obstructive pulmonary disease) no medications for currently Depression Diabetes mellitus, type II hx / NO MEDS Difficult intravenous access Dyslipidemia ESRD (end stage renal disease) on dialysis [place]ublayne, maile & sat ([place]) Generalized anxiety disorder History of anesthesia reaction "hard time waking up" History of COVID-19 ? early 2021- mild congestion, no hospitalization, no current issues History of recent hospitalization d/c 09/09/22>per medical record, pt sent to ER at [facility] following dialysis for reddened sores on her buttocks. Admitting dx was enterococcus UTI, decubitus ulcer and sacral cellulitis. History of stroke 2019- pts spouse poor historian pt denies hx stroke AKHIO[place] (hard of hearing) HTN (hypertension) Hx: recurrent pneumonia Hypothyroidism RACHEL (iron deficiency anemia) LBBB (left bundle branch block) Limb alert care status R arm Meniere's disease Mobility impaired pt non compliant with hx pt treatments / PT IS IN WHEELCHAIR/TOTAL ASSIST Morbid obesity Non-ST elevation [place] (NSTEMI) pt spouse not sure/ mild ? remembers something mentioned in hx/ ? details RENÉ on CPAP Parkinson disease Poor short term memory Restless leg syndrome Rheumatoid arthritis ? current status/no meds for Subdural hematoma hx fall 2020 - tx to [facility]/no surgical intervention Past Family History Family History Other AAA (abdominal aortic aneurysm) Diabetes Family history non-contributory Hypertension Myotonic dystrophy Past Surgical History Surgical History H/O sinus surgery History of carpal tunnel surgery B/L History of orthopedic surgery " bilat heel surgery" History of tubal ligation Hx of arteriovenostomy for renal dialysis right arm Hx of total knee arthroplasty B/L Social History Smoking Status: Former smoker tobacco type: cigarettes Smoking cigarettes per day: 0.25ppd Do You Dip or Chew Tobacco: No Smoking End Date: 20 years ago Hx Alcohol Use: Yes alcohol intake frequency: other Alcohol Intake Frequency Comment: hx-has had no alcohol for 40 years Hx Substance Use: No substance use type: does not use Physical Exam Vital Signs Last Vital Signs Temp 36.9 C 09/20/22 10:25 Pulse 58 L 09/20/22 10:25 Resp 20 09/20/22 10:25 BP 91/51 L 09/20/22 10:25 Pulse Ox 94 09/20/22 10:25 O2 Del Method Room Air 09/20/22 10:25 O2 Flow Rate 2 09/20/22 02:28 FiO2 21 09/19/22 21:19 Lab Results Anesthesia Preop Results Results Anesthesia Widget: WBC 9.05 K/ul (4.8-10.8) 09/20/22 Hgb 9.4 g/dl (12.0-16.0) L 09/20/22 Hct 29.9 % (37.0-47.0) L 09/20/22 Plt 267 K/uL (130-400) 09/20/22 Na 138 mmol/L (136-145) 09/20/22 K 4.0 mmol/L (3.5-5.1) 09/20/22 Cl 99 mmol/L (98-107) 09/20/22 CO2 29 mmol/L (21-32) 09/20/22 BUN 21 mg/dl (6-23) 09/20/22 Creat 6.28 mg/dl (0.6-1.2) H* 09/20/22 Glucose Level 103 mg/dl (70-99(Fasting)) H 09/20/22 POC Glucose 99 mg/dl (70-99) 09/20/22 PT 10.0 Seconds (9.0-12.0) 09/05/22 PTT 28.6 Seconds (21.0-31.0) 09/05/22 INR 0.9 (0.9-1.1) 09/05/22 HA1c 4.5 % (4.5-5.6) 09/20/22 Urine Color Dark Yellow 09/07/22 Urine Appearance Turbid (Clear) A 09/07/22 Urine pH 6.0 (4.5-7.5) 09/07/22 Urine Specific [place] 1.015 (1.000-1.030) 09/07/22 Urine Protein 3+ (Negative) H 09/07/22 Urine Glucose (UA) Negative (Negative) 09/07/22 Urine Ketones Trace (Negative) H 09/07/22 Urine Blood 3+ (Negative) H 09/07/22 Urine Nitrite Negative (Negative) 09/07/22 Urine Bilirubin Negative (Negative) 09/07/22 Urine Urobilinogen Negative (Negative) 09/07/22 Urine Leukocyte Esterase 3+ (Negative) H 09/07/22 Urine WBC (Auto) >30 /hpf (0-5) H 09/07/22 Urine RBC (Auto) 0-4 /hpf (0-4) 09/07/22 Urine Hyaline Casts (Auto) 0 /lpf (0-5) 09/07/22 Urine Epithelial Cells (Auto) >30 /lpf (0-5) H 09/07/22 Urine Bacteria (Auto) 2+ (Negative) H 09/07/22 Urine Yeast Not Reportable 09/07/22 SARS-CoV-2, RNA, NAAT NEGATIVE (NEGATIVE) 09/19/22 Blood Type O Positive 09/05/22 Antibody Screen NEGATIVE 09/05/22 Testing Laboratory Results 09/20/22 05:28 09/20/22 05:28 Hemoglobin A1c 4.5 % (4.5-5.6) 09/20/22 05:28 09/20/22 09/20/22 09/20/22 11:19 08:03 05:49 POC Glucose 99 101 H 106 H Electrocardiogram Date: 09/05/22 Sinus rhythm with frequent PVCs, rate 69 bpm LBBB Chest X-Ray Date: 09/05/22 *1view* No acute cardiopulmonary findings. Stable cardiomegaly Echocardiogram Date: 01/21/20 EF 50% Septal motion is abnormal consistent with LBBB Grade I diastolic dysfunction Mild tricuspid regurgitation PASP 41 mmHg Stress Test Date: 04/04/16 Dobutamine MPHR 105% Negative for inducible ischemia Inducible rate related LBBB EF 55-60% Grade I diastolic dysfunction No significant valvular pathology Normal LV wall motion Other Testing Chest, abdomen and pelvis CT 05/23/22 1. There is no acute posttraumatic intrathoracic abnormality. 2. There is no airspace consolidation, pleural effusion, or pneumothorax. 3. Cardiomegaly. 4. There is no evidence of solid organ injury in the abdomen or pelvis on this unenhanced examination. 5. The endometrium appears thickened and heterogeneous. This is not well assessed by CT. Nonemergent follow-up with gynecology and pelvic ultrasound is r ecommended for further assessment. 6. Additional findings as above. Carotid doppler 11/17/19 1. Focal area of severe mixed plaque of the proximal right ICA is noted with elevated peak systolic velocities corresponding to 50-69% stenosis 2. No significant atherosclerotic plaque or hemodynamic significant stenosis of the left common or internal carotid arteries. 3. Antegrade flow of the bilateral vertebral arteries.
[~2022-09-19 07:19] MED LIST changes: +ACETAMINOPHEN 325 MG TAB PO PRN; +EPOETIN ALFA 4,000 UNIT/ML VIAL IV ONE; -ETOMIDATE 2 MG/ML 20 ML VIAL IV ONE; +ONDANSETRON INJ 2 MG/ML 2 ML VIAL IV PRN; +POLYETHYLENE (MIRALAX) 17 GM PACK PO PRN; -ROCURONIUM BROMIDE 10 MG/ML 10 ML VIAL IV ONE; +SODIUM CHLORIDE 0.9% 1000ML 1,000 ML IV PRN
[2022-09-19 08:15] LABS: Basophils # (auto) 0.11 K/uL (0-0.2); Basophils % (auto) 1.1 %; Eosinophils % (auto) 7.3 %; Hematocrit (blood only) 30.7 % (37.0-47.0); Hemoglobin 9.3 g/dl (12.0-16.0); Immature Granulocytes # (auto) 0.17 K/uL (0.01-0.20); Immature Granulocytes % (auto) 1.8 %; Lymphocytes # (auto) 1.23 K/uL (1.2-3.4); Lymphocytes % (auto) 12.8 %; Mean Corpuscular Hgb Conc 30.3 g/dL (32.0-36.0); Mean Corpuscular Volume 105.5 fL (80.0-100.0); Mean Platelet Volume 10.9 fL (9.4-12.4); Monocytes # (auto) 0.79 K/uL (0.11-0.59); Monocytes % (auto) 8.2 %; Neutrophils # (auto) 6.62 K/uL (1.40-6.50); Neutrophils % (auto) 68.8 %; Nucleated RBC # (auto) 0.04 K/uL (0-0.12); Nucleated RBC % (auto) 0.4 %; Platelet Count 300 K/uL (130-400); RDW Coefficient of Variation 19.3 % (11.5-14.5); RDW Standard Deviation 72.7 fL (36.4-46.3); Red Blood Count 2.91 M/uL (4.20-5.40); White Blood Count 9.62 K/ul (4.8-10.8)
[2022-09-19 08:47] LABS: Albumin Globulin Ratio 1.3 (0.9-2); Albumin Level 3.9 gm/dl (3.4-5.0); BUN Creatinine Ratio 4.8 (10-20); Bilirubin,Total 0.3 mg/dl (0.2-1.0); Calcium 9.2 mg/dl (8.6-10.3); Est GFR (African American) 4.6 ml/min; Est GFR (Non-African American) 3.9 ml/min; Magnesium 2.4 mg/dl (1.7-2.4); Potassium 4.1 mmol/L (3.5-5.1); Total Protein 6.9 gm/dl (6.0-8.3)
--- NOTE | 2022-09-19 09:04 | History & Physical Report ---
Date of Service September 19, 2022 Assessment & Plan (1) Anemia of chronic disease: (2) Thickened endometrium: (3) End-stage renal disease (ESRD): (4) Hypertension: (5) DM type 2 (diabetes mellitus, type 2): (6) LBBB (left bundle branch block): (7) RENÉ (obstructive sleep apnea): (8) Decubitus ulcer: Plan This is a 77 yo F with a PMH of DM II, hypothyroidism, COPD, ESRD on hemodialysis, anemia, rheumatoid arthritis, h/o sacral ulcers and other medical problems listed below who presents as a direct admission for planned colonoscopy by Dr. Winston and D&C with hysteroscopy by Dr. Castanon. Thickened endometrium Possible source of worsening anemia. Planned D&C with hysteroscopy by Dr. Castanon tomorrow morning Hgb 9.3 today NPO after midnight Possible GI bleed Planned colonoscopy tomorrow with Dr. Winston. Begin colonoscopy prep this afternoon with 4L golytely, tap water enema as needed, clears, NPO at midnight ESRD (end stage renal disease) on dialysis Nephrology consulted, receiving HD today prior to procedures DM II Diet controlled, A1c of 5.3 in May 2022 SSI while in-patient BSG AC HS Sacral ulcer Recently admitted for cellulitis 2/2 sacral ulcers. Continue continue nystatin powder twice daily, consult wound care LBBB (left bundle branch block) Chronic Parkinson disease Continue Sinemet per home regimen Hypothyroidism Stable, continue levothyroxine RENÉ CPAP HS DVT Ppx: SCDs, planned procedures tomorrow Code status: FULL CODE per discussion today PCP: Kay Dispo: Admitted to med/surg Patient seen in collaboration with Dr. Gu. Please see addendum. I spent a total of 75 minutes coordinating, documenting, and providing care for this patient excluding time spent in the performance of separately billed services. Admission and Anticipated Discharge Date Admission Date: September 19, 2022 History of Present Illness Chief Complaint: direct admission Primary Care Provider: Bella Villanueva MD This is a 77 yo F with a PMH of DM II, hypothyroidism, COPD, ESRD on hemo dialysis, RENÉ on CPAP, HFpEF, anemia, rheumatoid arthritis, h/o sacral ulcers and other medical problems listed below who presents as a direct admission for planned colonoscopy by Dr. Winston and D&C with hysteroscopy by Dr. Castanon. 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 Baseline hgb has decreased from 10 to mid 8s over the past few months. Evaluated patient during dialysis. She is feeling well, denying any F/C, lightheadedness, CP, SOB, N/V, abdominal pain. Ongoing intermittent dark stool. Patient is wheelchair-bound and requires assistance by her for most of her ADLs. Patient with baseline cognitive/memory impairment per chart review. Allergies Allergy/AdvReac Type Severity Reaction Status Date / Time No Known Allergies Allergy Verified 09/11/22 09:39 Home Medications Medication Instructions Recorded Confirmed Type aspirin 81 mg tablet,delayed 162 mg PO QPM 11/15/21 09/18/22 History release atorvastatin 80 mg tablet 80 mg PO QPM 11/15/21 09/18/22 History calcium acetate(phosphat bind) 667 667 mg PO TIDM 11/15/21 09/18/22 History mg capsule carbidopa 25 mg-levodopa 100 mg 1 tab PO TIDM 11/15/21 09/18/22 History tablet cholecalciferol (vitamin D3) 125 125 mcg PO QPM 11/15/21 09/18/22 History mcg (5,000 unit) tablet (Vitamin D3) docusate sodium 100 mg capsule 100 mg PO Q2D 11/15/21 09/18/22 History (Colace) isosorbide mononitrate 30 mg 30 mg PO QPM 11/15/21 09/18/22 History tablet,extended release 24 hr levothyroxine 125 mcg tablet 125 mcg PO QAM 11/15/21 09/18/22 History lidocaine-prilocaine 2.5 %-2.5 % 1 applic topical DIRECTED PRN 1 11/15/21 09/18/22 History topical cream HR PRIOR TO DIALYSIS pregabalin 100 mg capsule 100 mg PO BID 11/15/21 09/18/22 History sertraline 100 mg tablet 100 mg PO QPM 11/15/21 09/18/22 History ferric citrate 210 mg iron tablet 210 mg PO TIDM 04/16/22 09/18/22 History (Auryxia) vitamin B complex-vitamin C-folic 1 tab PO QPM 04/16/22 09/18/22 History acid 0.8 mg tablet (Nanci-Samuel) pantoprazole 20 mg tablet,delayed 20 mg PO BID 05/23/22 09/18/22 History release acetaminophen 325 mg tablet 650 mg PO Q6H PRN Pain 09/05/22 09/18/22 History (Tylenol) epinephrine 0.3 mg/0.3 mL 0.3 mg IM DIRECTED PRN Allergic 09/05/22 09/18/22 History injection, auto-injector (EpiPen) Reaction hydrocortisone 2.5 % topical cream 1 applic [place] DAILY PRN Hemorrhoids 09/05/22 09/18/22 History with perineal applicator meclizine 12.5 mg tablet 12.5 mg PO TID PRN Dizziness 09/05/22 09/18/22 History melatonin 10 mg tablet 10 mg PO HS 09/05/22 09/18/22 History mupirocin 2 % topical ointment 1 applic EXT BID #15 grams 09/09/22 09/18/22 Rx nystatin 100,000 unit/gram topical 1 applic EXT BID #30 grams 09/09/22 09/18/22 Rx powder (Nystop) Past Med/Surg History Medical History Aspiration pneumonia HX AV fistula R arm Black stools Chronic diastolic heart failure EF 50% on 01/2020 echo COPD (chronic obstructive pulmonary disease) no medications for currently Depression Diabetes mellitus, type II hx / NO MEDS Difficult intravenous access Dyslipidemia ESRD (end stage renal disease) on dialysis tues, thur & sat ([place]) Generalized anxiety disorder History of anesthesia reaction "hard time waking up" History of COVID-19 ? early 2021- mild congestion, no hospitalization, no current issues History of recent hospitalization d/c 09/09/22>per medical record, pt sent to ER at [facility] following dialysis for reddened sores on her buttocks. Admitting dx was enterococcus UTI, decubitus ulcer and sacral cellulitis. History of stroke 2019- pts spouse poor historian pt denies hx stroke [place] (hard of hearing) HTN (hypertension) Hx: recurrent pneumonia Hypothyroidism RACHEL (iron deficiency anemia) LBBB (left bundle branch block) Limb alert care status R arm Meniere's disease Mobility impaired pt non compliant with hx pt treatments / PT IS IN WHEELCHAIR/TOTAL ASSIST Morbid obesity Non-ST elevation [place] (NSTEMI) pt spouse not sure/ mild ? remembers something mentioned in hx/ ? details RENÉ on CPAP Parkinson disease Poor short term memory Restless leg syndrome Rheumatoid arthritis ? current status/no meds for Subdural hematoma [facility] Surgical History H/O sinus surgery History of carpal tunnel surgery B/L History of orthopedic surgery " bilat heel surgery" History of tubal ligation Hx of arteriovenostomy for renal dialysis right arm Hx of total knee arthroplasty B/L Family History Other AAA (abdominal aortic aneurysm) Diabetes Family history non-contributory Hypertension Myotonic dystrophy Social History Smoking Status: Never smoker Cigarettes Per Day: 0.25ppd; Smoking End Date: 20 years ago; Second Hand Exposure: No; Do You Dip or Chew Tobacco: No; Tobacco Cessation Education Requested by Patient: No Hx Alcohol Use: No Hx Substance Use: No Preferred Language: Sami Communication Ability: Effective Communication Ability Comment: pt sometimes has difficulty understanding things, 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 Physical Exam Physical Exam: Please see Dr. Gu's addendum for physical exam. Results & Data Results & Data Laboratory Results Short CBC 09/19/22 Range/Units 07:49 WBC 9.62 (4.8-10.8) K/ul Hgb 9.3 L (12.0-16.0) g/dl Hct 30.7 L (37.0-47.0) % Plt Count 300 (130-400) K/uL BMP 09/19/22 07:49 Sodium 139 Potassium 4.1 Chloride 98 Carbon Dioxide 29 BUN 42 H Creatinine 8.82 H* Glucose 109 H Calcium 9.2 Liver Function 09/19/22 Range/Units 07:49 Total Bilirubin 0.3 (0.2-1.0) mg/dl AST 25 (13-39) U/L ALT 6 L (7-52) U/L Alkaline Phosphatase 68 (34-104) U/L Albumin 3.9 (3.4-5.0) gm/dl Code Status & VTE Plan VTE Prophylaxis Plan VTE Prophylaxis will be ordered: Yes Supervising Physician Co-Signing Physician Notes Patient is a 77-year-old female with history of ESRD on HD, COPD, RENÉ on CPAP, rheumatoid arthritis and other medical problems was admitted for elective colonoscopy for ongoing rectal bleed for about 1 year and hysteroscopy with possible D&C for endometrial. Patient was recently hospitalized for management of sacral cellulitis and UTI. Currently patient denies any chest pain, dyspnea, dizziness, nausea, vomiting, abdominal pain. She was scheduled for dialysis today. Please review HPI for complete details of presentation. Physical Exam: Vitals signs as noted above General Appearance:Morbidly Obese, no apparent distress Head: normocephalic, Atraumatic Eyes: normal inspection, EOMI Neck: supple, Trachea midline Respiratory/Chest: Normal breath sounds, CTA, No accessory muscle use Cardiovascular: S1, S2, No murmur Abdomen/GI:Soft, Non tender, Bowel sounds present Extremities/Musculoskeletal:normal inspection, Trace pedal edema Neurologic/Psych:AAOX3, grossly no focal neurological deficits Skin: normal color, warm Endometrial thickening Ongoing chronic GI bleed End-stage renal disease on dialysis Morbid obesity Parkinson's disease Chronic anemia Plan for colonic prep today. Clear liquid diet, n.p.o. after midnight. 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 Patient is interviewed and examined at bedside. Patient's care is coordinated with Keya Chaudhry PA-C. Please refer to the documentation above for details of patient's presentation and for discussion of other issues. (4) Hypertension Hypertension type: essential hypertension Qualified Code(s): I10 - Essential (primary) hypertension (8) Decubitus ulcer Pressure injury location: unspecified location Pressure injury stage: unspecified pressure injury stage Qualified Code(s): L89.90 - Pressure ulcer of unspecified site, unspecified stage
--- NOTE | 2022-09-19 09:34 | Communication Note ---
Date of Service: September 19, 2022 76 year old female with history of ESRD on HD, PD, HTN, dyslipidemia, AYSHA, T2DM, RENÉ, RA, CHF with dark tarry stools x 3 days and rectal bleeding x 1 year ad mitted for colonosocpy prep. EGD 2022: - Normal esophagus. - LA Grade B esophagitis with no bleeding. - Z-line variable. - Normal stomach. - Erythematous mucosa in the gastric body and antrum. Biopsied. - Erythematous duodenopathy. EGD 2022: - Normal esophagus. - Regular Z-line. - Food in the stomach. - Normal duodenal bulb and second portion of the duodenum. Clear liquids today. Golytely 4L to be given. NPO for after midnight for colonoscopy Friday. We appreciate assistance in the management of any serological abnormality and corrections to include: hemoglobin >7, INR <2, platelets >50,000, potassium levels >3.5 but <5.3, and sodium levels within 5 points of the reference range prior to endoscopic evaluation. Thank you for allowing us to participate in the care of this patient. Please call with any acute changes, questions or concerns. Please see addendum below with additional recommendation from my supervising physician.
[2022-09-19] MEDS ORDERED: MECLIZINE 12.5 MG TAB PO PRN (10:03)
--- NOTE | 2022-09-19 10:09 | Nephrology Consultation ---
Date of Consultation September 19, 2022 Assessment & Plan (1) ESRD (end stage renal disease) on dialysis: plsan 3.5 hr of routine 4 hr tx today on 3K bath, anticipating signficant GI losses w/ bowel prep >next HD tentatively for 09/21 or as clinical needs dicate -daily bmp, hgb -agree w/ GI plans for colo prep -anemia stable but remains pronounced History of Present Illness Reason for Consultation: ESRD on HD Requesting Physician: Dr Gu Attending Physician: Jenny Winston, History of Present Illness 77 y/o F whom I'm asked to see for dialysis needs was direct admitted this am for planned colonoscopy (including inpt prep) and D&C w/ hysteroscopy coordinated and requiring medical admission d/t her clinical complexity. She has had approximtely a year of chronic intermittent bleeding unclear if GI or TALENT ADVISOR related. her anemia has worsened significantly though not critically this spring w/ bleeding >> from a baseline of about 10 to since July. hx of abnormally thickened endometrial stripe on uterine imaging. PMH includes type 2 diabetes, COPD, RENÉ on CPAP, HFpEF. also on TRSat HD via [facility] in [place]. Pt is essentially wheelchair bound and unable to transfer. She lives at home w/ her who has been waiting for several months now for SNF admission but none available. Pt w/ at least moderate cognitive /memory impairment. today is her dialysis day > have arranged for dialyssi to be done today prior to starting colonoscopy prep midday pt unsure if she's had more bleeding today though thinks she may have passe some yesterday. no new/worrisome voiding sx > voids every few days. no n/v, no edema; no sob; tolerating po; a bit sleepy she tells me. Allergies Allergy/AdvReac Type Severity Reaction Status Date / Time No Known Allergies Allergy Verified 09/11/22 09:39 Home Medications Medication Instructions Recorded Confirmed Type aspirin 81 mg tablet,delayed 162 mg PO QPM 11/15/21 09/18/22 History release atorvastatin 80 mg tablet 80 mg PO QPM 11/15/21 09/18/22 History calcium acetate(phosphat bind) 667 667 mg PO TIDM 11/15/21 09/18/22 History mg capsule carbidopa 25 mg-levodopa 100 mg 1 tab PO TIDM 11/15/21 09/18/22 History tablet cholecalciferol (vitamin D3) 125 125 mcg PO QPM 11/15/21 09/18/22 History mcg (5,000 unit) tablet (Vitamin D3) docusate sodium 100 mg capsule 100 mg PO Q2D 11/15/21 09/18/22 History (Colace) isosorbide mononitrate 30 mg 30 mg PO QPM 11/15/21 09/18/22 History tablet,extended release 24 hr levothyroxine 125 mcg tablet 125 mcg PO QAM 11/15/21 09/18/22 History lidocaine-prilocaine 2.5 %-2.5 % 1 applic topical DIRECTED PRN 1 11/15/21 09/18/22 History topical cream HR PRIOR TO DIALYSIS pregabalin 100 mg capsule 100 mg PO BID 11/15/21 09/18/22 History sertraline 100 mg tablet 100 mg PO QPM 11/15/21 09/18/22 History ferric citrate 210 mg iron tablet 210 mg PO TIDM 04/16/22 09/18/22 History (Auryxia) vitamin B complex-vitamin C-folic 1 tab PO QPM 04/16/22 09/18/22 History acid 0.8 mg tablet (Nanci-Samuel) pantoprazole 20 mg tablet,delayed 20 mg PO BID 05/23/22 09/18/22 History release acetaminophen 325 mg tablet 650 mg PO Q6H PRN Pain 09/05/22 09/18/22 History (Tylenol) epinephrine 0.3 mg/0.3 mL 0.3 mg IM DIRECTED PRN Allergic 09/05/22 09/18/22 History injection, auto-injector (EpiPen) Reaction hydrocortisone 2.5 % topical cream 1 applic [place] DAILY PRN Hemorrhoids 09/05/22 09/18/22 History with perineal applicator meclizine 12.5 mg tablet 12.5 mg PO TID PRN Dizziness 09/05/22 09/18/22 History melatonin 10 mg tablet 10 mg PO HS 09/05/22 09/18/22 History mupirocin 2 % topical ointment 1 applic EXT BID #15 grams 09/09/22 09/18/22 Rx nystatin 100,000 unit/gram topical 1 applic EXT BID #30 grams 09/09/22 09/18/22 Rx powder (Nystop) Patient History Medical History Aspiration pneumonia HX AV fistula R arm Black stools Chronic diastolic heart failure EF 50% on 01/2020 echo COPD (chronic obstructive pulmonary disease) no medications for currently Depression Diabetes mellitus, type II hx / NO MEDS Difficult intravenous access Dyslipidemia ESRD (end stage renal disease) on dialysis tues, thur & sat ([place]) Generalized anxiety disorder History of anesthesia reaction "hard time waking up" History of COVID-19 ? early 2021- mild congestion, no hospitalization, no current issues History of recent hospitalization d/c 09/09/22>per medical record, pt sent to ER at [facility] following dialysis for reddened sores on her buttocks. Admitting dx was enterococcus UTI, decubitus ulcer and sacral cellulitis. History of stroke 2019- pts spouse poor historian pt denies hx stroke [place] (hard of hearing) HTN (hypertension) Hx: recurrent pneumonia Hypothyroidism RACHEL (iron deficiency anemia) LBBB (left bundle branch block) Limb alert care status R arm Meniere's disease Mobility impaired pt non compliant with hx pt treatments / PT IS IN WHEELCHAIR/TOTAL ASSIST Morbid obesity Non-ST elevation [place] (NSTEMI) pt spouse not sure/ mild ? remembers something mentioned in hx/ ? details RENÉ on CPAP Parkinson disease Poor short term memory Restless leg syndrome Rheumatoid arthritis ? current status/no meds for Subdural hematoma hx fall 2019 - tx to [facility]/no surgical intervention Surgical History H/O sinus surgery History of carpal tunnel surgery B/L History of orthopedic surgery " bilat heel surgery" History of tubal ligation Hx of arteriovenostomy for renal dialysis right arm Hx of total knee arthroplasty B/L Family History Other AAA (abdominal aortic aneurysm) Diabetes Family history non-contributory Hypertension Myotonic dystrophy Social History Smoking Status: Never smoker Cigarettes Per Day: 0.25ppd; Smoking End Date: 20 years ago; Second Hand Exposure: No; Do You Dip or Chew Tobacco: No; Tobacco Cessation Education Requested by Patient: No Hx Alcohol Use: No Hx Substance Use: No Preferred Language: Irish Communication Ability: Effective Communication Ability Comment: pt sometimes has difficulty understanding things, is POA Band Instrument Maker Required: No Beliefs That Will Affect Care: None marital status: Current Living Situation: Spouse Current Living Situation Comment: is caregiver, also uses [facility] home care Other Information That Helps Us Care for You: No Feels Safe at Home: Yes Safety Concerns: Feels Safe At This Time Assistive Devices: Hearing Aid - Bilateral and Wheelchair Assistive Devices Comment: hearing aid transmits from left to right ear; partial plate Review of Systems Review of Systems: All systems reviewed & are unremarkable except as noted in HPI & below Physical Exam Constitutional: well developed, well nourished and + obese; no acute distress Eyes: EOM intact bilaterally ENMT: Ears: no external ear abnormality Nose: no external nose abnormality Mouth: + dry oral mucous membranes Neck: no nuchal rigidity Respiratory: normal respiratory effort Auscultation: + diminished lung sounds Cardiovascular: Rate/Rhythm: regular rhythm and + bradycardic Extremities: + AV fistula; no edema Gastrointestinal (Abdomen): Inspection/Auscultation: normal bowel sounds Percussion/Palpation: abdomen soft; abdomen nontender Musculoskeletal: Extremities: strength 5/5 throughout Skin: no rashes, warm and dry Neurologic: caballero, fluent speech, no tremor Results & Data Vital Signs (Past 12 Hours) Vital Signs Temp Pulse Resp BP Pulse Ox O2 Del Method 09/19/22 09:06 36.6 C 85 18 113/67 94 Room Air 09/19/22 08:00 Room Air, CPAP Laboratory Results 09/19/22 07:49 09/19/22 07:49
[2022-09-19] MEDS ORDERED: EPINEPHrine INJ 1 MG/ML AMP IM PRN (10:11)
[2022-09-19] MEDS ORDERED: NON-FORMULARY MEDICATION (Amoxicillin 500 mg tablet) PO SCH (10:15)
[2022-09-19] MEDS ORDERED: PREGABALIN 100 MG CAP PO PRN (10:18)
[2022-09-19] MEDS ORDERED: DEXTROSE 50% 50 ML SYRINGE IV PRN (10:36)
[2022-09-19] MEDS ORDERED: GLUCOSE 10 TAB/TUBE PO PRN (10:36)
[2022-09-19] MEDS ORDERED: GLUCAGON FOR INJ 1 MG VIAL SQ PRN (10:36)
[2022-09-19] MEDS ORDERED: CARBOHYDRATES FOR HYPOGLYCEMIA PO PRN (10:36)
[2022-09-19] MEDS ORDERED: GLUCOSE 40% GEL 15 GM TUBE PO PRN (10:36)
[2022-09-19] MEDS: INSULIN ASPART PER UNIT CHARGE SC SCH ×3 (13:22→21:03)
[2022-09-19] MEDS: CARBIDOPA/LEVODOPA 25/100MG TAB PO SCH ×3 (13:24→17:52)
[2022-09-19] MEDS: PANTOprazole 40 MG TAB PO SCH ×2 (13:24→20:23)
[2022-09-19] MEDS: CALCIUM ACETATE 667 MG CAP/TAB PO SCH ×2 (13:25→17:59)
[2022-09-19] MEDS: PREGABALIN 100 MG CAP PO SCH ×2 (13:26→20:25)
[2022-09-19] MEDS ORDERED: LAVAGE SOLUTION 4000ML PO SCH (15:00)
[2022-09-19 15:23] LABS: Base Excess VBG 4.5 mEq/L; HCO3 VBG 31 mmol/L; Oxygen Saturation VBG < 60.0 %; PCO2 VBG 54 mmHg (38-50); PO2 VBG 34 mmHg; pH VBG 7.37 (7.36-7.41)
[2022-09-19] MEDS: MUPIROCIN 2% OINT 22 GM TUBE EXT SCH ×2 (16:20→20:24)
--- NOTE | 2022-09-19 19:38 | Dialysis Progress Note ---
Date of Service September 19, 2022 Assessment & Plan (1) ESRD (end stage renal disease) on dialysis: Plan: undergoing 3.5 hr of routine 4 hr tx today on 3K bath, anticipating signficant GI losses w/ bowel prep to begin immediately aftre treatment >next HD tentatively for 09/21 or as clinical needs dicate -daily bmp, hgb -agree w/ GI plans for colo prep -anemia stable but remains pronounced Admission and Anticipated Discharge Date Admission Date: September 19, 2022 Subjective seen on dialysis late AM; tired but w/o complaints; no pain; no dyspnea Review of Systems Review of Systems: All systems reviewed & are unremarkable except as noted in Subjective Physical Exam Constitutional: well developed, well nourished and + obese; no acute distress Eyes: EOM intact bilaterally ENMT: Ears: no external ear abnormality Nose: no external nose abnormality Mouth: + dry oral mucous membranes Neck: no nuchal rigidity Respiratory: normal respiratory effort Auscultation: + diminished lung sounds Cardiovascular: Rate/Rhythm: regular rhythm and + bradycardic Extremities: + AV fistula; no edema Gastrointestinal (Abdomen): Inspection/Auscultation: normal bowel sounds Percussion/Palpation: abdomen soft; abdomen nontender Musculoskeletal: Extremities: strength 5/5 throughout and + abnormal strength Skin: no rashes, warm and dry Results & Data Vital Signs (Past 12 Hours) Vital Signs Temp Pulse Pulse Pulse Resp BP BP 09/19/22 16:05 36.4 C L 55 L 18 113/54 L 09/19/22 12:45 36.6 C 74 110/55 L 09/19/22 12:30 50 L 86/41 L 09/19/22 12:00 54 L 97/41 L 09/19/22 11:30 48 L 106/48 L 09/19/22 11:00 45 L 116/64 09/19/22 10:30 45 L 118/85 09/19/22 10:00 46 L 136/83 09/19/22 09:30 58 L 115/43 L 09/19/22 09:15 45 L 92/49 L 09/19/22 09:00 36.6 C 61 09/19/22 09:06 36.6 C 85 18 113/67 09/19/22 08:00 Pulse Ox O2 Del Method 09/19/22 16:05 95 Room Air 09/19/22 12:45 09/19/22 12:30 09/19/22 12:00 09/19/22 11:30 09/19/22 11:00 09/19/22 10:30 09/19/22 10:00 09/19/22 09:30 09/19/22 09:15 09/19/22 09:00 09/19/22 09:06 94 Room Air 09/19/22 08:00 Room Air, CPAP Laboratory Results 09/19/22 07:49 09/19/22 07:49
[2022-09-19] MEDS: ATORVASTATIN 40 MG TAB PO SCH (20:23)
[2022-09-19] MEDS: CHOLECALCIFEROL 5,000 UNITS 125 MCG TAB PO SCH (20:24)
[2022-09-19] MEDS: ISOSORBIDE MONO EXTENDED REL 30 MG TABCR PO SCH (20:24)
[2022-09-19] MEDS: NEPHROCAPS PO SCH (20:24)
[2022-09-19] MEDS: SERTRALINE HCL 100 MG TABLET PO SCH (20:24)
[2022-09-19] MEDS: NYSTATIN POWDER 15GM BTL EXT SCH (20:24)
[2022-09-19] MEDS: MELATONIN 3 MG TAB PO SCH (21:16)
[2022-09-20] MEDS ORDERED: Nursing to Pharmacy Communication SCH ×2 (02:15→16:45)
[2022-09-20] MEDS: LEVOTHYROXINE SODIUM 125 MCG TABLET PO SCH (04:27)
[2022-09-20 05:45] LABS: Basophils # (auto) 0.12 K/uL (0-0.2); Basophils % (auto) 1.3 %; Eosinophils # (auto) 0.68 K/uL (0-0.50); Eosinophils % (auto) 7.5 %; Hematocrit (blood only) 29.9 % (37.0-47.0); Hemoglobin 9.4 g/dl (12.0-16.0); Immature Granulocytes # (auto) 0.16 K/uL (0.01-0.20); Immature Granulocytes % (auto) 1.8 %; Lymphocytes # (auto) 1.39 K/uL (1.2-3.4); Lymphocytes % (auto) 15.4 %; Mean Corpuscular Hemoglobin 32.4 pg (25.0-34.0); Mean Corpuscular Hgb Conc 31.4 g/dL (32.0-36.0); Mean Corpuscular Volume 103.1 fL (80.0-100.0); Mean Platelet Volume 10.5 fL (9.4-12.4); Monocytes # (auto) 0.81 K/uL (0.11-0.59); Neutrophils # (auto) 5.89 K/uL (1.40-6.50); Nucleated RBC # (auto) 0.05 K/uL (0-0.12); Nucleated RBC % (auto) 0.6 %; Platelet Count 267 K/uL (130-400); RDW Coefficient of Variation 19.3 % (11.5-14.5); RDW Standard Deviation 72.4 fL (36.4-46.3); White Blood Count 9.05 K/ul (4.8-10.8)
[2022-09-20] MEDS: INSULIN ASPART PER UNIT CHARGE SC SCH ×3 (05:52→22:03)
[2022-09-20] MEDS ORDERED: LACTATED RINGER'S 1,000 ML IV SCH (06:00)
[2022-09-20] MEDS ORDERED: SODIUM CHLORIDE 0.9% 1000ML IV SCH (06:00)
[2022-09-20 06:03] LABS: BUN Creatinine Ratio 3.3 (10-20); Calcium 8.9 mg/dl (8.6-10.3); Creatinine Clr Calc Pharmacy 8.9 ml/min; Est GFR (African American) 6.9 ml/min; Est GFR (Non-African American) 5.9 ml/min
[2022-09-20 06:55] LABS: Estimated Average Glucose 82 mg/dl; Hemoglobin A1C 4.5 % (4.5-5.6)
[2022-09-20] MEDS: CARBIDOPA/LEVODOPA 25/100MG TAB PO SCH ×3 (08:31→17:54)
[2022-09-20] MEDS: CALCIUM ACETATE 667 MG CAP/TAB PO SCH ×3 (08:31→17:54)
[2022-09-20] MEDS: MUPIROCIN 2% OINT 22 GM TUBE EXT SCH ×2 (08:32→21:19)
[2022-09-20] MEDS: PREGABALIN 100 MG CAP PO SCH ×2 (08:55→21:17)
[2022-09-20] MEDS: NYSTATIN POWDER 15GM BTL EXT SCH ×2 (08:56→21:19)
[2022-09-20] MEDS ORDERED: PNEUMOCOCCAL Polysaccharide Vaccine 25mcg/0.5mL vial/Syr IM ONE (09:00)
[2022-09-20] MEDS: PANTOprazole 40 MG TAB PO SCH ×2 (09:53→21:18)
--- NOTE | 2022-09-20 11:28 | Gastrointestinal Consultation ---
Date of Consultation September 20, 2022 Assessment & Plan (1) Rectal bleeding: colonoscopy today History of Present Illness Reason for Consultation: rectal bleeding Attending Physician: Afua Sousa MD History of Present Illness rectal bleeding x 1 year last colo 2016 Allergies Allergy/AdvReac Type Severity Reaction Status Date / Time No Known Allergies Allergy Verified 09/11/22 09:39 Home Medications Medication Instructions Recorded Confirmed Type aspirin 81 mg tablet,delayed 162 mg PO QPM 11/15/21 09/18/22 History release atorvastatin 80 mg tablet 80 mg PO QPM 11/15/21 09/18/22 History calcium acetate(phosphat bind) 667 667 mg PO TIDM 11/15/21 09/18/22 History mg capsule carbidopa 25 mg-levodopa 100 mg 1 tab PO TIDM 11/15/21 09/18/22 History tablet cholecalciferol (vitamin D3) 125 125 mcg PO QPM 11/15/21 09/18/22 History mcg (5,000 unit) tablet (Vitamin D3) docusate sodium 100 mg capsule 100 mg PO Q2D 11/15/21 09/18/22 History (Colace) isosorbide mononitrate 30 mg 30 mg PO QPM 11/15/21 09/18/22 History tablet,extended release 24 hr levothyroxine 125 mcg tablet 125 mcg PO QAM 11/15/21 09/18/22 History lidocaine-prilocaine 2.5 %-2.5 % 1 applic topical DIRECTED PRN 1 11/15/21 09/18/22 History topical cream HR PRIOR TO DIALYSIS pregabalin 100 mg capsule 100 mg PO BID 11/15/21 09/18/22 History sertraline 100 mg tablet 100 mg PO QPM 11/15/21 09/18/22 History ferric citrate 210 mg iron tablet 210 mg PO TIDM 04/16/22 09/18/22 History (Auryxia) vitamin B complex-vitamin C-folic 1 tab PO QPM 04/16/22 09/18/22 History acid 0.8 mg tablet (Nanci-Samuel) pantoprazole 20 mg tablet,delayed 20 mg PO BID 05/23/22 09/18/22 History release acetaminophen 325 mg tablet 650 mg PO Q6H PRN Pain 09/05/22 09/18/22 History (Tylenol) epinephrine 0.3 mg/0.3 mL 0.3 mg IM DIRECTED PRN Allergic 09/05/22 09/18/22 History injection, auto-injector (EpiPen) Reaction hydrocortisone 2.5 % topical cream 1 applic [place] DAILY PRN Hemorrhoids 09/05/22 09/18/22 History with perineal applicator meclizine 12.5 mg tablet 12.5 mg PO TID PRN Dizziness 09/05/22 09/18/22 History melatonin 10 mg tablet 10 mg PO HS 09/05/22 09/18/22 History mupirocin 2 % topical ointment 1 applic EXT BID #15 grams 09/09/22 09/18/22 Rx nystatin 100,000 unit/gram topical 1 applic EXT BID #30 grams 09/09/22 09/18/22 Rx powder (Nystop) Patient History Medical History Aspiration pneumonia HX AV fistula R arm Black stools Chronic diastolic heart failure EF 50% on 01/2020 echo COPD (chronic obstructive pulmonary disease) no medications for currently Depression Diabetes mellitus, type II hx / NO MEDS Difficult intravenous access Dyslipidemia ESRD (end stage renal disease) on dialysis tues, thur & sat ([place]) Generalized anxiety disorder History of anesthesia reaction "hard time waking up" History of COVID-19 ? early 2021- mild congestion, no hospitalization, no current issues History of recent hospitalization d/c 09/09/22>per medical record, pt sent to ER at [facility] following dialysis for reddened sores on her buttocks. Admitting dx was enterococcus UTI, decubitus ulcer and sacral cellulitis. History of stroke 2019- pts spouse poor historian pt denies hx stroke [place] (hard of hearing) HTN (hypertension) Hx: recurrent pneumonia Hypothyroidism RACHEL (iron deficiency anemia) LBBB (left bundle branch block) Limb alert care status R arm Meniere's disease Mobility impaired pt non compliant with hx pt treatments / PT IS IN WHEELCHAIR/TOTAL ASSIST Morbid obesity Non-ST elevation [place] (NSTEMI) pt spouse not sure/ mild ? remembers something mentioned in hx/ ? details RENÉ on CPAP Parkinson disease Poor short term memory Restless leg syndrome Rheumatoid arthritis ? current status/no meds for Subdural hematoma hx fall 2019 - tx to [facility]/no surgical intervention Surgical History H/O sinus surgery History of carpal tunnel surgery B/L History of orthopedic surgery " bilat heel surgery" History of tubal ligation Hx of arteriovenostomy for renal dialysis right arm Hx of total knee arthroplasty B/L Family History Other AAA (abdominal aortic aneurysm) Diabetes Family history non-contributory Hypertension Myotonic dystrophy Social History Smoking Status: Never smoker Cigarettes Per Day: 0.25ppd; Smoking End Date: 20 years ago; Second Hand Exposure: No; Do You Dip or Chew Tobacco: No; Tobacco Cessation Education Requested by Patient: No Hx Alcohol Use: No Hx Substance Use: No Preferred Language: Sami Communication Ability: Effective Communication Ability Comment: pt sometimes has difficulty understanding things, is POA Life Sciences Director Required: No Beliefs That Will Affect Care: None marital status: Current Living Situation: Spouse Current Living Situation Comment: is caregiver, also uses [facility] home care Other Information That Helps Us Care for You: No Feels Safe at Home: Yes Safety Concerns: Feels Safe At This Time Assistive Devices: Hearing Aid - Bilateral and Wheelchair Assistive Devices Comment: hearing aid transmits from left to right ear; partial plate Review of Systems Review of Systems: All systems reviewed & are unremarkable except as noted in HPI & below Physical Exam Constitutional: WD/WN, vitals as above Respiratory: normal respiratory effort, lungs clear to auscultation Cardiovascular: RRR, no murmur, no edema Gastrointestinal (Abdomen): normal bowel sounds, soft, nontender, no hepatosplenomegaly Results & Data Vital Signs (Past 12 Hours) Vital Signs Temp Pulse Pulse Pulse Resp BP Pulse Ox 09/20/22 10:25 36.9 C 58 L 20 91/51 L 94 09/20/22 07:00 09/20/22 07:20 36.7 C 52 L 17 132/54 L 93 09/20/22 02:28 48 L 17 91 Pulse Ox O2 Del Method O2 Del Method O2 Flow Rate 09/20/22 10:25 Room Air 09/20/22 07:00 93 Room Air 09/20/22 07:20 Room Air 09/20/22 02:28 2
[2022-09-20] MEDS ORDERED: fentaNYL citrate PF 100 MCG/2 ML VIAL ONE (11:39)
[2022-09-20] MEDS ORDERED: fentaNYL citrate PF 100 MCG/2 ML VIAL IV PRN (11:46)
[2022-09-20] MEDS ORDERED: ePHEDrine sulfate 50 MG/ML AMP IV PRN (11:46)
[2022-09-20] MEDS ORDERED: ATROPINE SULFATE 0.1 MG/ML 10ML SYR IV PRN (11:46)
[2022-09-20] MEDS ORDERED: ONDANSETRON INJ 2 MG/ML 2 ML VIAL IV PRN (11:46)
--- NOTE | 2022-09-20 11:49 | History & Physical Bridge Note ---
Date of Service September 20, 2022 History & Physical Bridge Note I have examined the patient, reviewed the History & Physical and in the interval since the performance of the History & Physical I have noted the following changes of clinical significance: no changes noted
[2022-09-20] MEDS ORDERED: ONDANSETRON INJ 2 MG/ML 2 ML VIAL ONE (12:27)
[2022-09-20] MEDS ORDERED: LIDOCAINE 2% 2 ML VIAL/AMP(20MG/ML) INFIL ONE (12:27)
[2022-09-20] MEDS ORDERED: ROCURONIUM BROMIDE 10 MG/ML 5 ML VIAL IV ONE (12:27)
[2022-09-20] MEDS ORDERED: PROPOFOL IV EMULSION 10 MG/ML 20 ML VIAL IV ONE (12:27)
[2022-09-20] MEDS ORDERED: DEXAMETHASONE SOD INJ 4 MG/ML VIAL ONE (12:27)
[2022-09-20] MEDS ORDERED: ePHEDrine sulfate 50 MG/ML AMP ONE (12:27)
[2022-09-20] MEDS ORDERED: SUCCINYLCHOLINE CHLORIDE 20 MG/ML 10 ML VIAL IV ONE (12:27)
[2022-09-20] MEDS ORDERED: SUGAMMADEX SODIUM 200 MG/2 ML VIAL IV ONE (12:28)
--- NOTE | 2022-09-20 13:06 | GI REPORT ---
Patient Name: Kami Hassan Procedure Date: 09/20/2022 11:15 AM Date of : 1945 Admit Type: Inpatient Age: 77 Gender: Female Attending MD: Jenny Winston DO, Procedure: Colonoscopy Providers: Jenny Winston DO Referring MD: Frandy Garland Indications: Last colonoscopy: 2015, Rectal bleeding Medicines: General Anesthesia Complications: No immediate complications. Estimated blood loss: Minimal. Estimated Blood Loss: Estimated blood loss was minimal. Procedure: Pre-Anesthesia Assessment: - Prior to the procedure, a History and Physical was performed, and patient medications, allergies and sensitivities were reviewed. The patient's tolerance of previous anesthesia was reviewed. - The risks and benefits of the procedure and the sedation options and risks were discussed with the patient. All questions were answered and informed consent was obtained. - Patient identification and proposed procedure were verified prior to the procedure by the physician and the nurse. The procedure was verified in the pre-procedure area in the procedure room. - Mental Status Examination: alert and oriented. Airway Examination: normal oropharyngeal airway and neck mobility. Respiratory Examination: clear to auscultation. CV Examination: normal. Abdominal Examination: bowel sounds present, abdomen soft and non-tender, no masses or organomegaly noted. - ASA Grade Assessment: III - A patient with severe systemic disease. After I obtained informed consent, the scope was passed under direct vision. Throughout the procedure, the patient's blood pressure, pulse, and oxygen saturations were monitored continuously. The scope was introduced through the anus and advanced to the cecum, identified by appendiceal orifice and ileocecal valve. The colonoscopy was performed without difficulty. The patient tolerated the procedure well. The quality of the bowel preparation was fair. Findings: The perianal and digital rectal examinations were normal. Pertinent negatives include normal sphincter tone and no palpable rectal lesions. A 7 mm polyp was found in the descending colon. The polyp was flat. The polyp was removed with a cold snare. Resection and retrieval were complete. Verification of patient identification for the specimen was done by the physician and nurse using the patient's name and date. Estimated blood loss was minimal. Multiple small and large-mouthed diverticula were found in the sigmoid colon. External and internal hemorrhoids were found. Impression: - Preparation of the colon was fair. - One 7 mm polyp in the descending colon, removed with a cold snare. Resected and retrieved. - Diverticulosis in the sigmoid colon. - External and internal hemorrhoids. Recommendation: - Await pathology results. - Return patient to [facility] for possible discharge same day. Jenny Winston D.O. Jenny Winston, 09/20/2022 1:05:35 PM This report has been signed electronically. Note Initiated On: 09/20/2022 11:15 AM Number of Addenda: 0 I attest to the content of the Intraoperative Record and orders documented therein, exceptions below {[id number]}
--- NOTE | 2022-09-20 13:45 | Operative Report ---
[facility] Post Operative Report Pre & Post Diagnosis Operation Date: 09/20/22 11:40 Pre-Op Diagnosis: Thickened Endometrium, Morbid Obestiy Rectal bleeding Post-Op Diagnosis: Thickened Endometrium, Morbid Obestiy Rectal bleeding I identified the patient and participated in the time-out.: Yes Procedure Operation Date: 09/20/22 11:40 Actual Procedures p Examination under Anestheisa, Dilation and Curettage, Hysteroscopy - Frandy Castanon MD Endometrial polyp rescetion with Myosur s Colonoscopy(Not Applicable) - Jenny Winston DO Surgeon Frandy Castanon MD Practical Nurse jose g cuevas Estimated Blood Loss 5 (Hysteroscopy) Findings Consistent with Post-Op Diagnosis endometrial polyp Fluids 150 Specimens endometrial polyp resection with Myosur sharp endometrial curretings Drains none Anesthesia Type General Complications none Indications thickened endometrium on sonogram Description of Procedure DESCRIPTION OF PROCEDURE: The patient was taken to the operating room where she was prepped and draped in normal sterile fashion in dorsal lithotomy position. Time-out was called.Pelvic and vaginal exam was performed Findings is a dictated above. A weighted speculum was placed in the vagina. The bladder was catheterized. 20cc of pus urine was obtained and sent to lab for culture. Schroeder retractor was used to retract the anterior part of the vagina. Single-tooth tenaculum was used to grab the cervix. Cervix was dilated in series to a size 24 after the uterus was sounded to and found to be 8 cm. Hysteroscope was placed into the uterus and findings of the uterus as dictated above. The MyoSure device was passed through the outflow tract of the hysteroscope and resection of the endometrial polyp performed with the MyoSure. . MyoSure and scope were removed and a size 2 sharp curette introduced into the uterine cavity. Curettage is performed in all 4 quadrants with size 2 sharp curet. Both specimens were sent to pathology for pathological analysis. Practical Nurse was necessary for retraction and manipulation of instruments in order to provide for a safe operation I attest to the content of the Intraoperative Record and any orders documented therein. Any exceptions are noted below.
--- NOTE | 2022-09-20 14:28 | Anesthesiology Progress Note ---
Date of Service September 20, 2022 Anesthesia Post Procedure Vital Signs Vital Signs: Temp Pulse Pulse Pulse Pulse Resp BP 09/20/22 14:02 36.7 C 78 16 123/75 09/20/22 13:45 36.2 C L 74 17 133/77 09/20/22 13:35 73 17 132/57 L 09/20/22 13:25 74 18 111/90 09/20/22 13:15 36 C L 77 19 142/77 H 09/20/22 10:25 36.9 C 58 L 20 09/20/22 07:00 09/20/22 07:20 36.7 C 52 L 17 09/20/22 02:28 48 L 17 09/19/22 19:45 09/19/22 21:19 56 L 22 09/19/22 20:08 36.6 C 52 L 18 118/67 09/19/22 16:05 36.4 C L 55 L 18 113/54 L BP Pulse Ox Pulse Ox O2 Del Method O2 Del Method O2 Flow Rate FiO2 09/20/22 14:02 94 Nasal Cannula 2 09/20/22 13:45 97 Nasal Cannula 2 09/20/22 13:35 95 Oxymask 4 09/20/22 13:25 99 Oxymask 11 09/20/22 13:15 98 Oxymask 11 09/20/22 10:25 91/51 L 94 Room Air 09/20/22 07:00 93 Room Air 09/20/22 07:20 132/54 L 93 Room Air 09/20/22 02:28 91 2 09/19/22 19:45 CPAP 09/19/22 21:19 93 21 09/19/22 20:08 96 Room Air 09/19/22 16:05 95 Room Air Pain Intensity Right Shoulder: Pain Intensity: 5 Transfer of Care Handoff Completed per policy Notes Mental Status: alert / awake / arousable and participated in evaluation Nausea / Vomiting: adequately controlled Pain: adequately controlled Airway Patency, RR, SpO2: stable & adequate BP & HR: stable & adequate Hydration State: stable & adequate Anesthetic Complications: no major complications apparent and Pt Satisfied with anesthetic care
--- NOTE | 2022-09-20 15:49 | Hospitalist Progress Note ---
Date of Service September 20, 2022 Assessment & Plan (1) Anemia of chronic disease: (2) Thickened endometrium: (3) End-stage renal disease (ESRD): (4) Hypertension: (5) DM type 2 (diabetes mellitus, type 2): (6) LBBB (left bundle branch block): (7) RENÉ (obstructive sleep apnea): (8) Decubitus ulcer: Plan This is a 77 yo F with a PMH of DM II, hypothyroidism, COPD, ESRD on hemodialysis, anemia, rheumatoid arthritis, h/o sacral ulcers and other medical problems listed below who presents as a direct admission for planned colonoscopy by Dr. Winston and D&C with hysteroscopy by Dr. Castanon. Thickened endometrium Possible source of worsening anemia. Planned D&C with hysteroscopy by Dr. 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 Winston. Begin colonoscopy prep this afternoon with 4L golytely, tap water enema as needed, clears, NPO at midnight Status post colonoscopy with removal of a 7 mm polyp-await pathology Remains groggy likely secondary to anesthetics Remains otherwise stable We will monitor labs and possible discharge tomorrow ESRD (end stage renal disease) on dialysis Nephrology consulted, receiving HD today prior to procedures Has had hemodialysis today Her next dialysis is tomorrow as per the patient but will depend on the cement finisher DM II Diet controlled, A1c of 5.3 in May 2022 SSI while in-patient BSG AC HS Sacral ulcer Recently admitted for cellulitis 2/2 sacral ulcers. Continue continue nystatin powder twice daily, consult wound care LBBB (left bundle branch block) Chronic-appreciate wound care nurse input and recommendation Parkinson disease Continue Sinemet per home regimen Hypothyroidism Stable, continue levothyroxine RENÉ CPAP HS DVT Ppx: SCDs, planned procedures tomorrow Code status: FULL CODE per discussion today PCP: Kay Dispo: Admitted to med/surg Admission and Anticipated Discharge Date Admission Date: September 19, 2022 Subjective 09/20/2022 The patient was seen and examined in medical floor She is a status post colonoscopy and hysteroscopy with biopsy Remains groggy and generally weak and lethargic Does not want to go home today Review of Systems Review of Systems: All systems reviewed and are unremarkable except as noted below Physical Exam Physical Exam: Lying in bed with sleepiness and lethargy Constitutional: well developed, well nourished, + ill appearing and + morbidly obese Eyes: PERRL, conjunctivae normal, anicteric sclerae ENMT: external ear and nose normal, oropharynx normal Respiratory: no respiratory distress Auscultation: + diminished lung sounds and + crackles (Minimal crackles at the bases) Cardiovascular: Rate/Rhythm: regular rate and regular rhythm; not tachycardic Heart Sounds: normal S1 and normal S2; no murmur Extremities: no edema Gastrointestinal (Abdomen): Inspection/Auscultation: normal bowel sounds; abdomen not distended Percussion/Palpation: abdomen soft; abdomen nontender Musculoskeletal: No acute arthritis involving any joint Neurologic: normal touch/pain/proprioception and moves all extremities; no focal motor deficits Psychiatric: A+Ox3, euthymic affect Lymphatic: no cervical or axillary lymphadenopathy Results & Data Results & Data Vital Signs (Past 12 Hours) Vital Signs Temp Pulse Pulse Pulse Resp BP Pulse Ox 09/20/22 10:25 36.9 C 58 L 20 91/51 L 94 09/20/22 07:00 09/20/22 07:20 36.7 C 52 L 17 132/54 L 93 09/20/22 02:28 48 L 17 91 Pulse Ox O2 Del Method O2 Del Method O2 Flow Rate 09/20/22 10:25 Room Air 09/20/22 07:00 93 Room Air 09/20/22 07:20 Room Air 09/20/22 02:28 2 Laboratory Results Short CBC 09/20/22 Range/Units 05:28 WBC 9.05 (4.8-10.8) K/ul Hgb 9.4 L (12.0-16.0) g/dl Hct 29.9 L (37.0-47.0) % Plt Count 267 (130-400) K/uL BMP 09/20/22 05:28 Sodium 138 Potassium 4.0 Chloride 99 Carbon Dioxide 29 BUN 21 D Creatinine 6.28 H* D Glucose 103 H Calcium 8.9 Medications Administered Current Inpatient Medications Acetaminophen (Acetaminophen 325 Mg Tab) 650 mg PO Q4H PRN PRN Reason: Pain or Fever Stop: 10/19/22 06:59 Last Admin: 09/20/22 07:24 Dose: 650 mg Atorvastatin Calcium (Atorvastatin 40 Mg Tab) 80 mg PO QPM [facility] Stop: 10/19/22 20:59 Last Admin: 09/19/22 20:23 Dose: 80 mg Atropine Sulfate (Atropine Sulfate 0.1 Mg/Ml 10ml Syr) 0.5 mg IV Q1M PRN PRN Reason: PACU Use-HR<40 &/or Bradycardi Stop: 09/20/22 19:46 Calcium Acetate (Calcium Acetate 667 Mg Cap/Tab) 667 mg PO TIDM [facility] Stop: 10/19/22 11:59 Last Admin: 09/20/22 14:32 Dose: 667 mg Carbidopa/Levodopa (Carbidopa/Levodopa 25/100mg Tab) 1 tab PO TIDM [facility] Stop: 10/19/22 10:04 Last Admin: 09/20/22 14:32 Dose: 1 tab Dextrose (Dextrose 50% 50 Ml Syringe) 25 - 50 ml IV UD PRN; Protocol PRN Reason: Hypoglycemia Protocol Stop: 10/19/22 10:35 Ephedrine Sulfate (Ephedrine Sulfate 50 Mg/Ml Amp) 5 mg IV Q5M PRN PRN Reason: PACU Use Only-SBP<90 mmHg Stop: 09/20/22 19:46 Epinephrine HCl (Epinephrine Inj 1 Mg/Ml Amp) 0.3 mg IM UD PRN PRN Reason: Allergic Reaction Stop: 10/19/22 10:10 Fentanyl Citrate (Fentanyl Citrate Pf 100 Mcg/2 Ml Vial) 25 mcg IV Q5M PRN PRN Reason: PACU Use Only-Pain Stop: 09/20/22 19:46 Glucagon (Glucagon For Inj 1 Mg Vial) 1 mg SQ UD PRN; Protocol PRN Reason: Hypoglycemia Protocol Stop: 10/19/22 10:35 Glucose (Glucose 10 Tab/Tube) 4 - 8 tab PO UD PRN; Protocol PRN Reason: Hypoglycemia Treatment Stop: 10/19/22 10:35 Glucose (Glucose 40% Gel 15 Gm Tube) 15 - 30 gm PO UD PRN; Protocol PRN Reason: Hypoglycemia Protocol Stop: 10/19/22 10:35 Sodium Chloride (Nss 1000ml) 1,000 mls @ 15 mls/hr IV .Q24H [facility] Stop: 09/21/22 05:59 Last Admin: 09/20/22 05:40 Dose: 15 mls/hr Insulin Aspart (Insulin Aspart Per Unit Charge) 0 units SC Q6 [facility] Stop: 10/20/22 05:59 Last Admin: 09/20/22 14:40 Dose: 3 units Isosorbide Mononitrate (Isosorbide [place] Extended Rel 30 Mg Tabcr) 30 mg PO QPM [facility] Stop: 10/19/22 20:59 Last Admin: 09/19/22 20:24 Dose: 30 mg Levothyroxine Sodium (Levothyroxine Sodium 125 Mcg Tablet) 125 mcg PO DAILYBB [facility] Stop: 10/20/22 06:29 Last Admin: 09/20/22 04:27 Dose: 125 mcg Meclizine HCl (Meclizine 12.5 Mg Tab) 12.5 mg PO TID PRN PRN Reason: Dizziness Stop: 10/19/22 10:02 Melatonin (Melatonin 3 Mg Tab) 9 mg PO HS [facility] Stop: 10/19/22 20:59 Last Admin: 09/19/22 21:16 Dose: 9 mg Miscellaneous (Auryxia 210mg--Order Awaiting Action) 1 each N/A QS [facility] Stop: 10/19/22 15:59 Last Admin: 09/20/22 08:33 Dose: Not Given Miscellaneous (Carbohydrates For Hypoglycemia ) 15 - 30 gm PO UD PRN PRN Reason: Hypoglycemia Protocol Stop: 10/19/22 10:35 Mupirocin (Mupirocin 2% Oint 22 Gm Tube) 1 appln EXT BID [facility] Stop: 10/19/22 10:04 Last Admin: 09/20/22 08:32 Dose: 1 appln Nystatin (Nystatin Powder 15gm Btl) 1 appln EXT BID [facility] Stop: 10/19/22 20:59 Last Admin: 09/20/22 08:56 Dose: 1 appln Ondansetron HCl (Ondansetron Inj 2 Mg/Ml 2 Ml Vial) 4 mg IV Q6H PRN PRN Reason: Nausea Stop: 10/19/22 06:59 Ondansetron HCl (Ondansetron Inj 2 Mg/Ml 2 Ml Vial) 4 mg IV ONCE PRN PRN Reason: PACU Use Only-Nausea/Vomiting Stop: 09/20/22 19:46 Pantoprazole Sodium (Pantoprazole 40 Mg Tab) 40 mg PO BID [facility] Stop: 10/19/22 10:04 Last Admin: 09/20/22 09:53 Dose: 40 mg Polyethylene Glycol (Polyethylene (Miralax) 17 Gm Pack) 17 gm PO DAILY PRN PRN Reason: Constipation Stop: 10/19/22 06:59 Pregabalin (Pregabalin 100 Mg Cap) 100 mg PO BID [facility] Stop: 10/19/22 10:29 Last Admin: 09/20/22 08:55 Dose: 100 mg Pregabalin (Pregabalin 100 Mg Cap) 100 mg PO TuThSa PRN PRN Reason: NEUROPATHIC PAIN P/ DIALYSIS Stop: 10/19/22 10:17 Sertraline HCl (Sertraline Hcl 100 Mg Tablet) 100 mg PO QPM [facility] Stop: 10/19/22 20:59 Last Admin: 09/19/22 20:24 Dose: 100 mg Vitamin B Complex/Folic Acid (Nephrocaps) 1 cap PO QPM [facility] Stop: 10/19/22 20:59 Last Admin: 09/19/22 20:24 Dose: 1 cap Vitamin D (Cholecalciferol 5,000 Units 125 Mcg Tab) 5,000 units PO QPM [facility] Stop: 10/19/22 20:59 Last Admin: 09/19/22 20:24 Dose: 5,000 units (4) Hypertension Hypertension type: essential hypertension Qualified Code(s): I10 - Essential (primary) hypertension (8) Decubitus ulcer Pressure injury location: unspecified location Pressure injury stage: unspecified pressure injury stage Qualified Code(s): L89.90 - Pressure ulcer of unspecified site, unspecified stage
[2022-09-20] MEDS ORDERED: SODIUM CHLORIDE 0.9% 1000ML 1,000 ML IV PRN (16:48)
[2022-09-20] MEDS: MELATONIN 3 MG TAB PO SCH (21:17)
[2022-09-20] MEDS: NEPHROCAPS PO SCH (21:17)
[2022-09-20] MEDS: ISOSORBIDE MONO EXTENDED REL 30 MG TABCR PO SCH (21:17)
[2022-09-20] MEDS: SERTRALINE HCL 100 MG TABLET PO SCH (21:18)
[2022-09-20] MEDS: CHOLECALCIFEROL 5,000 UNITS 125 MCG TAB PO SCH (21:18)
[2022-09-20] MEDS: ATORVASTATIN 40 MG TAB PO SCH (21:19)
[2022-09-21] MEDS: LEVOTHYROXINE SODIUM 125 MCG TABLET PO SCH (05:54)
--- NOTE | 2022-09-21 06:19 | Electrocardiogram Report ---
Test Reason : Blood Pressure : / mmHG Vent. Rate : 066 BPM Atrial Rate : 066 BPM P-R Int : 176 ms QRS Dur : 146 ms QT Int : 494 ms P-R-T Axes : 038 026 032 degrees QTc Int : 517 ms Sinus rhythm with occasional Premature ventricular complexes Left bundle branch block Abnormal ECG When compared with ECG of 05-SEP-2022 18:05, No significant change was found Confirmed by Ciro Kidd ([id number]) on 09/21/2022 6:18:44 AM Referred By: Jenny Winston Confirmed By:Ciro Kidd
--- NOTE | 2022-09-21 06:56 | Electrocardiogram Report ---
Test Reason : Blood Pressure : / mmHG Vent. Rate : 054 BPM Atrial Rate : 054 BPM P-R Int : 172 ms QRS Dur : 146 ms QT Int : 520 ms P-R-T Axes : 036 052 041 degrees QTc Int : 493 ms Sinus bradycardia with sinus arrhythmia Left bundle branch block Abnormal ECG When compared with ECG of 19-SEP-2022 14:07, Premature ventricular complexes are no longer Present Confirmed by Ciro Kidd ([id number]) on 09/21/2022 6:56:34 AM Referred By: Jenny Winston Confirmed By:Ciro Kidd
[2022-09-21] MEDS ORDERED: EPOETIN ALFA 20,000 UNITS/ML VIAL IV ONE (07:00)
[2022-09-21] MEDS ORDERED: SODIUM CHLORIDE 0.9% 1000ML 1,000 ML IV PRN (07:00)
[2022-09-21] MEDS: INSULIN ASPART PER UNIT CHARGE SC SCH ×2 (07:49→13:50)
[2022-09-21 08:08] LABS: Basophils # (auto) 0.04 K/uL (0-0.2); Basophils % (auto) 0.4 %; Eosinophils # (auto) 0.03 K/uL (0-0.50); Eosinophils % (auto) 0.3 %; Hematocrit (blood only) 28.4 % (37.0-47.0); Hemoglobin 8.8 g/dl (12.0-16.0); Immature Granulocytes # (auto) 0.13 K/uL (0.01-0.20); Immature Granulocytes % (auto) 1.4 %; Lymphocytes # (auto) 1.22 K/uL (1.2-3.4); Lymphocytes % (auto) 12.9 %; Mean Corpuscular Volume 103.3 fL (80.0-100.0); Mean Platelet Volume 10.5 fL (9.4-12.4); Monocytes # (auto) 0.67 K/uL (0.11-0.59); Monocytes % (auto) 7.1 %; Neutrophils % (auto) 77.9 %; Nucleated RBC # (auto) 0.07 K/uL (0-0.12); Nucleated RBC % (auto) 0.7 %; Platelet Count 301 K/uL (130-400); RDW Coefficient of Variation 19.5 % (11.5-14.5); RDW Standard Deviation 71.8 fL (36.4-46.3); Red Blood Count 2.75 M/uL (4.20-5.40); White Blood Count 9.49 K/ul (4.8-10.8)
[2022-09-21 08:27] LABS: BUN Creatinine Ratio 3.6 (10-20); Calcium 9.5 mg/dl (8.6-10.3); Est GFR (Non-African American) 4.3 ml/min; Magnesium 2.1 mg/dl (1.7-2.4); Potassium 4.6 mmol/L (3.5-5.1)
[2022-09-21] MEDS: CARBIDOPA/LEVODOPA 25/100MG TAB PO SCH ×2 (08:27→13:31)
[2022-09-21] MEDS: CALCIUM ACETATE 667 MG CAP/TAB PO SCH ×2 (08:27→13:30)
[2022-09-21] MEDS: PANTOprazole 40 MG TAB PO SCH (08:28)
[2022-09-21] MEDS: NYSTATIN POWDER 15GM BTL EXT SCH (08:29)
[2022-09-21] MEDS: MUPIROCIN 2% OINT 22 GM TUBE EXT SCH (08:29)
[2022-09-21] MEDS: PREGABALIN 100 MG CAP PO SCH (08:31)
[2022-09-21] MEDS ORDERED: PNEUMOCOCCAL POLYSACCHARIDES 25 MCG/0.5 ML VIAL/SYR IM ONE (09:00)
--- NOTE | 2022-09-21 10:53 | Nephrology Progress Note ---
Date of Service September 21, 2022 Assessment & Plan (1) ESRD (end stage renal disease) on dialysis: Plan: undergoing 3.5 hr of routine 4 hr tx today on 3K bath, >next HD tentatively for 09/24 or as clinical needs dicate -daily bmp, hgb -anemia stable but remains pronounced Admission and Anticipated Discharge Date Admission Date: September 19, 2022 Subjective The patient was seen on medical floor Appears comfortable , for dialysis today Review of Systems Review of Systems: All systems reviewed & are unremarkable except as noted in HPI & below Results & Data Vital Signs (Past 12 Hours) Vital Signs Temp Pulse Pulse Pulse Resp BP BP 09/21/22 10:30 60 110/65 09/21/22 10:00 60 115/61 09/21/22 09:30 57 L 92/42 L 09/21/22 09:00 58 L 88/32 L 09/21/22 08:50 36.8 C 102 H 09/21/22 07:00 09/21/22 07:34 36.7 C 61 17 100/60 09/21/22 03:38 15 09/21/22 03:15 36.5 C 67 16 117/72 09/20/22 23:21 36.5 C 86 16 132/75 Pulse Ox Pulse Ox O2 Del Method O2 Del Method O2 Flow Rate 09/21/22 10:30 09/21/22 10:00 09/21/22 09:30 09/21/22 09:00 09/21/22 08:50 09/21/22 07:00 92 Room Air 09/21/22 07:34 92 Room Air 09/21/22 03:38 2 09/21/22 03:15 94 Room Air 09/20/22 23:21 94 Room Air, CPAP Laboratory Results 09/21/22 07:26 09/21/22 07:26
--- NOTE | 2022-09-21 13:57 | Hospitalist Progress Note ---
Date of Service September 21, 2022 Assessment & Plan (1) Anemia of chronic disease: (2) Thickened endometrium: (3) End-stage renal disease (ESRD): (4) Hypertension: (5) DM type 2 (diabetes mellitus, type 2): (6) LBBB (left bundle branch block): (7) RENÉ (obstructive sleep apnea): (8) Decubitus ulcer: Plan This is a 77 yo F with a PMH of DM II, hypothyroidism, COPD, ESRD on hemodialysis, anemia, rheumatoid arthritis, h/o sacral ulcers and other medical problems listed below who presents as a direct admission for planned colonoscopy by Dr. Winston and D&C with hysteroscopy by Dr. Castanon. Thickened endometrium Possible source of worsening anemia. Planned D&C with hysteroscopy by Dr. Castanon tomorrow morning Hgb 9.3 today Status post hysteroscopy and biopsy today-await pathology Appreciate DIGITAL MEDIA ANALYST input and recommendation Denies any symptoms relating to recent hysteroscopy-results of biopsy pending Possible GI bleed Planned colonoscopy tomorrow with Dr. Winston. 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 Continue continue nystatin powder twice daily, consult wound care LBBB (left bundle branch block) Chronic-appreciate wound care nurse input and recommendation Parkinson disease Continue Sinemet per home regimen Hypothyroidism Stable, continue levothyroxine RENÉ CPAP HS DVT Ppx: SCDs, planned procedures tomorrow Code status: FULL CODE per discussion today PCP: Kay Dispo: Admitted to med/surg She wants to go home today ,she mentioned that she is at her baseline If she remains asymptomatic and the blood pressure is reasonable she can be discharged merchandising execution manager consulted for any needs at home Admission and Anticipated Discharge Date Admission Date: September 19, 2022 Subjective 09/20/2022 The patient was seen and examined in medical floor She is a status post colonoscopy and hysteroscopy with biopsy Remains groggy and generally weak and lethargic Does not want to go home today 09/21/2022 The patient was seen and examined in medical floor She is a status post dialysis today and noted to have low blood pressure systolic 88 without any symptoms She wants to go home She mentioned that she is bedbound and cannot get out of bed by herself and uses wheelchair to move around and it her blood pressure runs low all the time We will get repeat blood pressure specially while sitting and make sure there is no symptoms before she can be discharged Review of Systems Review of Systems: All systems reviewed and are unremarkable except as noted below Physical Exam Physical Exam: Lying in bed without any acute distress Constitutional: well developed, well nourished, + ill appearing and + morbidly obese Eyes: PERRL, conjunctivae normal, anicteric sclerae ENMT: external ear and nose normal, oropharynx normal Respiratory: no respiratory distress Auscultation: + diminished lung sounds and + crackles (Minimal crackles at the bases) Cardiovascular: Rate/Rhythm: regular rate and regular rhythm; not tachycardic Heart Sounds: normal S1 and normal S2; no murmur Extremities: no edema Gastrointestinal (Abdomen): Inspection/Auscultation: normal bowel sounds; abdomen not distended Percussion/Palpation: abdomen soft; abdomen nontender Neurologic: normal touch/pain/proprioception and moves all extremities; no focal motor deficits Psychiatric: A+Ox3, euthymic affect Lymphatic: no cervical or axillary lymphadenopathy Results & Data Results & Data Vital Signs (Past 12 Hours) Vital Signs Temp Pulse Pulse Pulse Resp BP BP 09/21/22 13:04 36.5 C 67 107/51 L 09/21/22 13:00 55 L 108/45 L 09/21/22 12:30 58 L 100/51 L 09/21/22 12:00 57 L 93/57 L 09/21/22 11:30 58 L 95/43 L 09/21/22 11:00 58 L 104/40 L 09/21/22 10:30 60 110/65 09/21/22 10:00 60 115/61 07/08/23 09:30 57 L 92/42 L 09/21/22 09:00 58 L 88/32 L 09/21/22 08:50 36.8 C 102 H 09/21/22 07:00 09/21/22 07:34 36.7 C 61 17 100/60 09/21/22 03:38 15 09/21/22 03:15 36.5 C 67 16 117/72 Pulse Ox Pulse Ox O2 Del Method O2 Del Method O2 Flow Rate 09/21/22 13:04 09/21/22 13:00 09/21/22 12:30 09/21/22 12:00 09/21/22 11:30 09/21/22 11:00 09/21/22 10:30 09/21/22 10:00 09/21/22 09:30 09/21/22 09:00 09/21/22 08:50 09/21/22 07:00 92 Room Air 09/21/22 07:34 92 Room Air 09/21/22 03:38 2 09/21/22 03:15 94 Room Air Laboratory Results Short CBC 09/21/22 Range/Units 07:26 WBC 9.49 (4.8-10.8) K/ul Hgb 8.8 L (12.0-16.0) g/dl Hct 28.4 L (37.0-47.0) % Plt Count 301 (130-400) K/uL BMP 09/21/22 07:26 Sodium 136 Potassium 4.6 Chloride 97 L Carbon Dioxide 27 BUN 29 H Creatinine 8.12 H* D Glucose 107 H Calcium 9.5 Medications Administered Current Inpatient Medications Acetaminophen (Acetaminophen 325 Mg Tab) 650 mg PO Q4H PRN PRN Reason: Pain or Fever Stop: 10/19/22 06:59 Last Admin: 09/20/22 07:24 Dose: 650 mg Atorvastatin Calcium (Atorvastatin 40 Mg Tab) 80 mg PO QPM [facility] Stop: 10/19/22 20:59 Last Admin: 09/20/22 21:19 Dose: 80 mg Calcium Acetate (Calcium Acetate 667 Mg Cap/Tab) 667 mg PO TIDM [facility] Stop: 10/19/22 11:59 Last Admin: 09/21/22 13:30 Dose: 667 mg Carbidopa/Levodopa (Carbidopa/Levodopa 25/100mg Tab) 1 tab PO TIDM [facility] Stop: 10/19/22 10:04 Last Admin: 09/21/22 13:31 Dose: 1 tab Dextrose (Dextrose 50% 50 Ml Syringe) 25 - 50 ml IV UD PRN; Protocol PRN Reason: Hypoglycemia Protocol Stop: 10/19/22 10:35 Epinephrine HCl (Epinephrine Inj 1 Mg/Ml Amp) 0.3 mg IM UD PRN PRN Reason: Allergic Reaction Stop: 10/19/22 10:10 Glucagon (Glucagon For Inj 1 Mg Vial) 1 mg SQ UD PRN; Protocol PRN Reason: Hypoglycemia Protocol Stop: 10/19/22 10:35 Glucose (Glucose 10 Tab/Tube) 4 - 8 tab PO UD PRN; Protocol PRN Reason: Hypoglycemia Treatment Stop: 10/19/22 10:35 Glucose (Glucose 40% Gel 15 Gm Tube) 15 - 30 gm PO UD PRN; Protocol PRN Reason: Hypoglycemia Protocol Stop: 10/19/22 10:35 Insulin Aspart (Insulin Aspart Per Unit Charge) 0 units SC ACHS [facility] Stop: 10/20/22 05:59 Last Admin: 09/21/22 13:50 Dose: Not Given Isosorbide Mononitrate (Isosorbide [place] Extended Rel 30 Mg Tabcr) 30 mg PO QPM [facility] Stop: 10/19/22 20:59 Last Admin: 09/20/22 21:17 Dose: 30 mg Levothyroxine Sodium (Levothyroxine Sodium 125 Mcg Tablet) 125 mcg PO DAILYBB [facility] Stop: 10/20/22 06:29 Last Admin: 09/21/22 05:54 Dose: 125 mcg Meclizine HCl (Meclizine 12.5 Mg Tab) 12.5 mg PO TID PRN PRN Reason: Dizziness Stop: 10/19/22 10:02 Melatonin (Melatonin 3 Mg Tab) 9 mg PO HS [facility] Stop: 10/19/22 20:59 Last Admin: 09/20/22 21:17 Dose: 9 mg Miscellaneous (Auryxia 210mg--Order Awaiting Action) 1 each N/A QS [facility] Stop: 10/19/22 15:59 Last Admin: 09/21/22 08:30 Dose: Not Given Miscellaneous (Carbohydrates For Hypoglycemia ) 15 - 30 gm PO UD PRN PRN Reason: Hypoglycemia Protocol Stop: 10/19/22 10:35 Mupirocin (Mupirocin 2% Oint 22 Gm Tube) 1 appln EXT BID [facility] Stop: 10/19/22 10:04 Last Admin: 09/21/22 08:29 Dose: 1 appln Nystatin (Nystatin Powder 15gm Btl) 1 appln EXT BID [facility] Stop: 10/19/22 20:59 Last Admin: 09/21/22 08:29 Dose: 1 appln Ondansetron HCl (Ondansetron Inj 2 Mg/Ml 2 Ml Vial) 4 mg IV Q6H PRN PRN Reason: Nausea Stop: 10/19/22 06:59 Pantoprazole Sodium (Pantoprazole 40 Mg Tab) 40 mg PO BID [facility] Stop: 10/19/22 10:04 Last Admin: 09/21/22 08:28 Dose: 40 mg Polyethylene Glycol (Polyethylene (Miralax) 17 Gm Pack) 17 gm PO DAILY PRN PRN Reason: Constipation Stop: 10/19/22 06:59 Pregabalin (Pregabalin 100 Mg Cap) 100 mg PO BID [facility] Stop: 10/19/22 10:29 Last Admin: 09/21/22 08:31 Dose: 100 mg Pregabalin (Pregabalin 100 Mg Cap) 100 mg PO TuThSa PRN PRN Reason: NEUROPATHIC PAIN P/ DIALYSIS Stop: 10/19/22 10:17 Sertraline HCl (Sertraline Hcl 100 Mg Tablet) 100 mg PO QPM [facility] Stop: 10/19/22 20:59 Last Admin: 09/20/22 21:18 Dose: 100 mg Vitamin B Complex/Folic Acid (Nephrocaps) 1 cap PO QPM [facility] Stop: 10/19/22 20:59 Last Admin: 09/20/22 21:17 Dose: 1 cap Vitamin D (Cholecalciferol 5,000 Units 125 Mcg Tab) 5,000 units PO QPM [facility] Stop: 10/19/22 20:59 Last Admin: 09/20/22 21:18 Dose: 5,000 units (4) Hypertension Hypertension type: essential hypertension Qualified Code(s): I10 - Essential (primary) hypertension (8) Decubitus ulcer Pressure injury location: unspecified location Pressure injury stage: unspecified pressure injury stage Qualified Code(s): L89.90 - Pressure ulcer of unspecified site, unspecified stage
--- NOTE | 2022-09-22 08:32 | Discharge Summary ---
Date of Service September 22, 2022 Admission HPI Per Admitting Provider This is a 77 yo F with a PMH of DM II, hypothyroidism, COPD, ESRD on hemodialysis, RENÉ on CPAP, HFpEF, anemia, rheumatoid arthritis, h/o sacral ulcers and other medical problems listed below who presents as a direct admis donna for planned colonoscopy by Dr. Winston and D&C with hysteroscopy by Dr. Castanon. 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 Baseline hgb has decreased from 10 to mid 8s over the past few months. Evaluated patient during dialysis. She is feeling well, denying any F/C, lightheadedness, CP, SOB, N/V, abdominal pain. Ongoing intermittent dark stool. Patient is wheelchair-bound and requires assistance by her for most of her ADLs. Patient with baseline cognitive/memory impairment per chart review. Admission Exam Per Admitting Provider Vitals signs as noted above General Appearance:Morbidly Obese, no apparent distress Head: normocephalic, Atraumatic Eyes: normal inspection, EOMI Neck: supple, Trachea midline Respiratory/Chest: Normal breath sounds, CTA, No accessory muscle use Cardiovascular: S1, S2, No murmur Abdomen/GI:Soft, Non tender, Bowel sounds present Extremities/Musculoskeletal:normal inspection, Trace pedal edema Neurologic/Psych:AAOX3, grossly no focal neurological deficits Skin: normal color, warm Principal Diagnosis End-stage renal disease on hemodialysis, status post hysteroscopy and biopsy and colonoscopy with biopsy Discharge Exam Lying in bed without any acute distress Constitutional well developed, well nourished, + ill appearing and + morbidly obese Eyes PERRL, conjunctivae normal, anicteric sclerae ENMT external ear and nose normal, oropharynx normal Respiratory no respiratory distress Auscultation: + diminished lung sounds and + crackles (Minimal crackles at the bases) Cardiovascular Rate/Rhythm: regular rate and regular rhythm; not tachycardic Heart Sounds: normal S1 and normal S2; no murmur Extremities: no edema Gastrointestinal (Abdomen) Inspection/Auscultation: normal bowel sounds; abdomen not distended Percussion/Palpation: abdomen soft; abdomen nontender Neurologic normal touch/pain/proprioception and moves all extremities; no focal motor deficits Psychiatric A+Ox3, euthymic affect Lymphatic no cervical or axillary lymphadenopathy Discharge Data Allergies Allergy/AdvReac Type Severity Reaction Status Date / Time No Known Allergies Allergy Verified 09/11/22 09:39 Consultations 09/19/22 06:00 Consult Nephrology Routine 09/19/22 09:28 Consult Gastroenterology Routine Procedures Performed Operation Date: 09/20/22 11:40 Actual Procedures p Examination onder Anestheisa, Dilation and Curettage, Hysteroscopy with Myosure(Not Applicable) - MD gege Mchugh Colonoscopy(Not Applicable) - Jenny Winston, Hospital Course (1) Anemia of chronic disease: (2) Thickened endometrium: (3) End-stage renal disease (ESRD): (4) Hypertension: (5) DM type 2 (diabetes mellitus, type 2): (6) LBBB (left bundle branch block): (7) RENÉ (obstructive sleep apnea): (8) Decubitus ulcer: Plan This is a 77 yo F with a PMH of DM II, hypothyroidism, COPD, ESRD on hemodialysis, anemia, rheumatoid arthritis, h/o sacral ulcers and other medical problems listed below who presents as a direct admission for planned colonoscopy by Dr. Winston and D&C with hysteroscopy by Dr. Castanon. Thickened endometrium Possible source of worsening anemia. Planned D&C with hysteroscopy by Dr. Castanon tomorrow morning Hgb 9.3 today Status post hysteroscopy and biopsy today-await pathology Appreciate DREDGE OPERATOR input and recommendation Denies any symptoms relating to recent hysteroscopy-results of biopsy pending Possible GI bleed Planned colonoscopy tomorrow with Dr. Winston. 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 Continue continue nystatin powder twice daily, consult wound care LBBB (left bundle branch block) Chronic-appreciate wound care nurse input and recommendation Parkinson disease Continue Sinemet per home regimen Hypothyroidism Stable, continue levothyroxine RENÉ CPAP HS DVT Ppx: SCDs, planned procedures tomorrow Code status: FULL CODE per discussion today PCP: Kay Dispo: Admitted to med/surg She wants to go home today ,she mentioned that she is at her baseline If she remains asymptomatic and the blood pressure is reasonable she can be discharged project management manager consulted for any needs at home Total Time Total Time Spent Total Time Spent (In Minutes): 40 minutes Discharge Plan Discharge Items Patient Disposition: Home - Self-Care Reason For Visit: Thickened Endometrium, Morbid Obestiy Discharge Diagnosis: End-stage renal disease on hemodialysis, status post hysteroscopy and biopsy and colonoscopy with biopsy Condition on Discharge: Fair Activity: As commented below Activity Comment: Wheelchair-bound Non-emergency contact: Primary Care Provider Call non-emergency contact if: you have any medication questions and your symptoms worsen Follow-up/Referrals: Bella Villanueva MD [Primary Care Provider] - (Your doctor's office will give you a call for an appointment) Diet: Dialysis Renal Addtl Attending Provider Instructions: Please take extreme precautions to avoid fall Take your time to move around Continue with your hemodialysis as an outpatient Keep appointment with your healthcare providers Pending Studies at Discharge: Yes Studies:: Pathology report of colonic and uterine biopsy Stand-Alone Forms: My [facility], Smoking Cessation Medications and DC Order Prescriptions: Continued atorvastatin 80 mg tablet 80 mg PO QPM isosorbide mononitrate 30 mg tablet extended release 24 hr 30 mg PO QPM sertraline 100 mg tablet 100 mg PO QPM aspirin 81 mg Tablet,Delayed Release (Dr/Ec) 162 mg PO QPM Patient Comments: afternoon hours lidocaine-prilocaine 2.5-2.5 % cream 1 applic topical DIRECTED PRN (Reason: 1 HR PRIOR TO DIALYSIS) Rx Instructions: Apply small amount to access site 1 hr before dialysis. levothyroxine 125 mcg tablet 125 mcg PO QAM docusate sodium [Colace] 100 mg Capsule 100 mg PO Q2D Rx Instructions: 3 times per week carbidopa-levodopa 25-100 mg tablet 1 tab PO TIDM calcium acetate(phosphat bind) 667 mg capsule 667 mg PO TIDM pregabalin 100 mg capsule 100 mg PO BID Patient Comments: on dialysis days takes 2 in the evening , , and saturdays Rx Instructions: MAY TAKE AN EXTRA DOSE AFTER DIALYSIS IF NEEDED. cholecalciferol (vitamin D3) [Vitamin D3] 125 mcg (5,000 unit) Tablet 125 mcg PO QPM Auryxia 210 mg iron Tablet 210 mg PO TIDM Rx Instructions: administer with a meal Nanci-Samuel 0.8 mg Tablet 1 tab PO QPM pantoprazole 20 mg tablet,delayed release (DR/EC) 20 mg PO BID acetaminophen [Tylenol] 325 mg Tablet 650 mg PO Q6H PRN (Reason: Pain) meclizine 12.5 mg Tablet 12.5 mg PO TID PRN (Reason: Dizziness) hydrocortisone 2.5 % Cream With Perineal Applicator 1 applic SC DAILY PRN (Reason: Hemorrhoids) epinephrine [EpiPen] 0.3 mg/0.3 mL Auto-Injector 0.3 mg IM DIRECTED PRN (Reason: Allergic Reaction) melatonin 10 mg Tablet 10 mg PO HS mupirocin 2 % Ointment 1 applic EXT BID Qty: 15 0RF nystatin [Nystop] 100,000 unit/gram Powder 1 applic EXT BID Qty: 30 0RF Discharge Orders: Discharge Order (Routine); Ordered 09/21/22 Ordered By: Afua Lorenzo/Other Patient Handouts: Rectal Bleeding Tx Admission Data Admit Date/Time: 09/19/22 07:19 Attending Provider: Afua Sousa Admit Provider: Marito Gu Primary Care Provider: Bella Villanueva Other Providers: Marito Gu ; Erica Tobar ; Jenny Winston Other Interventions: Discharge Summary Assessment (RN) Last Done: 09/21/22 15:01
== END 2022-09-21 16:50 | disposition home or self-care (01) | DRG 744 ==
LOC: 3N 07:19 → SUATTDRO 07:19 → EDSTATUS 09-20 08:50
DX: N18.6 End stage renal disease; Z79.890 Hormone replacement therapy; K92.2 Gastrointestinal hemorrhage, unspecified; J44.9 Chronic obstructive pulmonary disease, unspecified; Z99.2 Dependence on renal dialysis; Z79.899 Other long term (current) drug therapy; I44.7 Left bundle-branch block, unspecified; F03.90 Unspecified dementia, unspecified severity, without behavioral disturbance, psychotic disturbance, mood disturbance, and anxiety; I13.2 Hypertensive heart and chronic kidney disease with heart failure and with stage 5 chronic kidney disease, or end stage renal disease; M06.9 Rheumatoid arthritis, unspecified; N85.00 Endometrial hyperplasia, unspecified; E66.01 Morbid (severe) obesity due to excess calories; Z99.3 Dependence on wheelchair; E03.9 Hypothyroidism, unspecified; L89.150 Pressure ulcer of sacral region, unstageable; Z68.42 Body mass index [BMI] 45.0-49.9, adult; I25.2 Old myocardial infarction; Z86.73 Personal history of transient ischemic attack (TIA), and cerebral infarction without residual deficits; D63.1 Anemia in chronic kidney disease; G20 Parkinson's disease; K21.9 Gastro-esophageal reflux disease without esophagitis; G47.33 Obstructive sleep apnea (adult) (pediatric); E11.22 Type 2 diabetes mellitus with diabetic chronic kidney disease; Z87.891 Personal history of nicotine dependence; Z79.82 Long term (current) use of aspirin

== ENCOUNTER 2023-01-21 09:54 | Inpatient (IN) ==
[2023-01-21] MEDS ORDERED: PANTOprazole 80 MG in DEXTROSE 5% 100 ML IV ONE (10:05)
[2023-01-21] MEDS ORDERED: FAMOTIDINE 20MG IV PUSH 20 MG/5 ML SYR IV STA (10:05)
--- NOTE | 2023-01-21 10:13 | Emergency Department Note ---
Impression & Plan Hypotension, Rectal bleeding, Anemia, Dialysis patient ED Provider Note NAME: CHESTER FRENCH AGE: 77 SEX: F : 1945 ARRIVES VIA: Ambulance INFORMANT: [Patient][ems, ] ED PROVIDER(S): [Deep Salazar MD] CHIEF COMPLAINT: Bleeding HISTORY OF PRESENT ILLNESS: The patient is a 77-year-old female who presents directly from the dialysis suite for presumed rectal or potentially vaginal bleeding. She had heavy bleeding on her clothing and was sent right to the ED, she presents by ambulance. She did not undergo dialysis. The patient has had prior vaginal and rectal bleeding. She is not on blood thinning agents. Patient currently denies any chest pain or abdominal pain. She is not dizzy or short of breath. No nausea or vomiting. She is not on blood thinning agents. PMHx/PSHx/Social Hx: See Below PHYSICAL EXAM: GENERAL: Patient is in no acute distress. HEENT: No acute trauma, normocephalic atraumatic, mucous membranes moist, no nasal congestion. NECK: No stridor, no adenopathy, no meningismus, trachea is midline. LUNGS: Clear to auscultation bilaterally when listening anterior, no wheeze, no rhonchi, breath sounds equal. HEART: Somewhat irregular rhythm, normal rate, 2/6 systolic murmur. ABDOMEN: Soft, nontender, no peritonitis. Obese. EXTREMITIES: No cyanosis, full range of motion of all the joints without pain or difficulty. NEUROLOGIC: Awake and alert, follows commands, moves all extremities. SKIN: No jaundice, no diaphoresis. Rectal: She has bright red and some dark maroon-colored blood noted rectally. There is blood inside the rectal vault. There is blood on her clothing. She does have some hemorrhoids noted. Vaginal: This exam was performed with a female nurse director law enforcement. There were no findings of vaginal bleeding. DIFFERENTIAL DIAGNOSIS: Rectal or vaginal bleeding, diverticular bleeding, upper GI bleed, anemia, electrolyte imbalance, hyperkalemia, coagulopathy, among others. EMERGENCY DEPARTMENT PROCEDURES: MEDICAL DECISION MAKING: There is a mild leukocytosis, this could be consistent with infection or just the stress of her current presentation. Her hemoglobin is low at 8.4 however, she has a history of anemia and runs typically in the 8-9 range. There is a normal platelet count. There is no coagulopathy. The patient does have laboratory findings consistent with renal failure and her dialysis need. Potassium was adequate. No concerning liver enzyme elevation. ECG shows a sinus bradycardia with PVCs, no obvious ischemia. Cardiac enzyme testing x1 is slightly elevated, likely from her renal failure. COVID test returned negative. Blood type returned O+. Chest x-ray does show some cardiomegaly and mild fluid overload, no pneumonia. On my exam, the patient had obvious rectal bleeding, no vaginal bleeding. The patient was found to be hypotensive on arrival with a blood pressure of around 60 systolic. The patient was aggressively managed. I did speak with on-call nephrology. They suggested some IV albumin plus a blood transfusion. We had to be careful with the amount of IV fluids given as she had missed her dialysis today. Patient was given a 500 cc saline bolus. She received 25 g of IV albumin. She received 20 mg of IV Pepcid and 80 mg of IV Protonix. She was ordered for 1 unit of blood to be transfused slowly. With the above treatment, the patient has made significant improvement. Her blood pressure is now over 110 systolic. She seems comfortable. I did speak with the patient, I did speak with case management, I spoke with the on-call hospitalist. Admission is clearly warranted. Of note, the appropriate paperwork for the blood transfusion was completed and signed. Prior/Outside records/notes reviewed: Previous discharge summary. ECG per my interpretation: Indication was GI bleeding. The ECG shows what appears to be a sinus bradycardia with PVCs. The rate is 58. There is a left bundle branch block. No concerning ST elevation. QTc is 494. Compared to an ECG from 20 September 2022, PVCs are now present. Continuous Cardiac Monitoring per my interpretation: An order was placed for continuous cardiac monitoring. The monitor shows a rate of 64 with sinus rhythm with PVCs. Imaging/x-ray results per my interpretation: Chest x-ray shows some mild CHF, no pneumonia. Chronic Medical/Social conditions affecting care: Continuous dialysis needed. Advanced age. Care/Management discussed with: Nephrology, Dr. Baig. I also spoke with the case management team and on-call hospitalist. Level of care consideration(s): After review of the information above and other included data: --I believe the patient requires escalation of care to admission Critical Care Note: I have personally spent 45 minutes of critical care time in the direct management of this patient. This includes bedside care, interpretation of diagnostic studies, and testing, discussion with consultants, patient, and family members, and other required patient management activities. This 45 minutes is in excess of all separately billable procedures. DISPOSITION: Admission Past Med/Surg History Medical History AV fistula R arm Limb alert care status R arm History of recent hospitalization d/c 09/09/22>per medical record, pt sent to ER at [facility] following dialysis for reddened sores on her buttocks. Admitting dx was enterococcus UTI, decubitus ulcer and sacral cellulitis. Difficult intravenous access Black stools Mobility impaired pt non compliant with hx pt treatments / PT IS IN WHEELCHAIR/TOTAL ASSIST Poor short term memory SELDOVIA (hard of hearing) COPD (chronic obstructive pulmonary disease) no medications for currently History of stroke 2019- pts spouse poor historian pt denies hx stroke History of anesthesia reaction "hard time waking up" Hx: recurrent pneumonia History of COVID-19 ? early 2021- mild congestion, no hospitalization, no current issues Non-ST elevation NH (NSTEMI) pt spouse not sure/ mild ? remembers something mentioned in hx/ ? details ESRD (end stage renal disease) on dialysis tues, thur & sat ([facility]) Aspiration pneumonia HX Morbid obesity Parkinson disease Rheumatoid arthritis ? current status/no meds for Chronic diastolic heart failure EF 50% on 01/2020 echo RACHEL (iron deficiency anemia) Subdural hematoma hx fall 2019 - tx to [facility]/no surgical intervention LBBB (left bundle branch block) RENÉ on CPAP Depression Meniere's disease Generalized anxiety disorder Dyslipidemia Restless leg syndrome Diabetes mellitus, type II hx / NO MEDS Hypothyroidism HTN (hypertension) Surgical History Hx of arteriovenostomy for renal dialysis right arm History of tubal ligation History of carpal tunnel surgery B/L History of orthopedic surgery " bilat heel surgery" H/O sinus surgery Hx of total knee arthroplasty B/L Family History Other AAA (abdominal aortic aneurysm) Diabetes Family history non-contributory Hypertension Myotonic dystrophy Social History Smoking Status: Former smoker Cigarettes Per Day: 0.25ppd; Smoking End Date: 1997; Second Hand Exposure: No; Do You Dip or Chew Tobacco: No; Hx Alcohol Use: No Hx Substance Use: No Preferred Language: [place] Communication Ability: Effective Communication Ability Comment: pt sometimes has difficulty understanding things, is POA Health Policy Manager Required: No Beliefs That Will Affect Care: None marital status: Current Living Situation: Spouse Current Living Situation Comment: is caregiver, also uses S home care Feels Safe at Home: Yes Assistive Devices: Mechanical Lift and Wheelchair Allergies Allergies Allergy/AdvReac Type Severity Reaction Status Date / Time No Known Allergies Allergy Verified 09/11/22 09:39 Home Meds Home Medications Medication Instructions Recorded Confirmed aspirin 81 mg tablet,delayed 162 mg PO QAM 11/15/21 01/21/23 release atorvastatin 80 mg tablet 80 mg PO QPM 11/15/21 01/21/23 carbidopa 25 mg-levodopa 100 mg 1 tab PO TIDM 11/15/21 01/21/23 tablet docusate sodium 100 mg capsule 100 mg PO Q2D 11/15/21 01/21/23 (Colace) isosorbide mononitrate 30 mg 30 mg PO QPM 11/15/21 01/21/23 tablet,extended release 24 hr levothyroxine 125 mcg tablet 125 mcg PO QAM 11/15/21 01/21/23 lidocaine-prilocaine 2.5 %-2.5 % 1 applic topical DIRECTED PRN 1 11/15/21 01/21/23 topical cream HR PRIOR TO DIALYSIS pregabalin 100 mg capsule 100 mg PO .BID 4DAYSWEEK 11/15/21 01/21/23 sertraline 100 mg tablet 100 mg PO QPM 11/15/21 01/21/23 vitamin B complex-vitamin C-folic 1 tab PO QPM 04/16/22 01/21/23 acid 0.8 mg tablet (Nanci-Samuel) pantoprazole 20 mg tablet,delayed 20 mg PO BID 05/23/22 01/21/23 release acetaminophen 325 mg tablet 650 mg PO Q6H PRN Pain 09/05/22 01/21/23 (Tylenol) epinephrine 0.3 mg/0.3 mL 0.3 mg IM DIRECTED PRN Allergic 09/05/22 01/21/23 injection, auto-injector (EpiPen) Reaction hydrocortisone 2.5 % topical cream 1 applic CO DAILY PRN Hemorrhoids 09/05/22 01/21/23 with perineal applicator meclizine 12.5 mg tablet 12.5 mg PO TID PRN Dizziness 09/05/22 01/21/23 melatonin 10 mg tablet 10 mg PO HS PRN Sleep 09/05/22 01/21/23 ferric citrate 210 mg iron tablet 420 mg PO TIDM 01/21/23 01/21/23 (Auryxia) fluticasone furoate 200 1 inh inhalation DAILY 01/21/23 01/21/23 mcg-vilanterol 25 mcg/dose inhalation powder (Breo Ellipta) lidocaine-prilocaine 2.5 %-2.5 % 1 applic topical DIRECTED 01/21/23 01/21/23 topical cream pregabalin 100 mg capsule 100 mg PO .TID 3 DAYS A WEEK 01/21/23 01/21/23 Previous Rx's Medication Instructions Recorded nystatin 100,000 unit/gram topical 1 applic EXT BID #30 grams 09/09/22 powder (Nystop) Results & Data (ED) Vital Signs Vital Signs - 24 hr 01/21/23 10:09 01/21/23 10:19 01/21/23 10:42 Temperature 36.3 C L Temperature Source Oral Pulse Rate 64 62 Pulse Rate [Apical] Respiratory Rate 16 Respiratory Effort / Characteristics Respiratory Depth Blood Pressure Blood Pressure [Left Arm] Blood Pressure Mean Blood Pressure Mean [Left Arm] Pulse Oximetry 88 L 99 Oxygen Delivery Method Room Air Nasal Cannula Oxygen Flow Rate 2 Sepsis Recent Fever Within 48 Hours No Sepsis New/Unexplained Change in Mental Status No Sepsis Action Taken by Nursing No Action Required 01/21/23 10:43 01/21/23 11:09 01/21/23 11:30 Temperature Temperature Source Pulse Rate 58 L Pulse Rate [Apical] 61 64 Respiratory Rate 16 17 14 Respiratory Effort / Characteristics Non-Labored Respiratory Depth Normal Normal Blood Pressure 116/58 L Blood Pressure [Left Arm] 85/38 L Blood Pressure Mean 77 Blood Pressure Mean [Left Arm] 53 Pulse Oximetry 97 98 94 Oxygen Delivery Method Nasal Cannula Nasal Cannula Nasal Cannula Oxygen Flow Rate 2 3 3 Sepsis Recent Fever Within 48 Hours Sepsis New/Unexplained Change in Mental Status Sepsis Action Taken by Nursing 01/21/23 11:45 01/21/23 12:00 01/21/23 12:15 Temperature Temperature Source Pulse Rate 66 62 68 Pulse Rate [Apical] Respiratory Rate 15 15 14 Respiratory Effort / Characteristics Respiratory Depth Blood Pressure 87/60 L 111/62 114/57 L Blood Pressure [Left Arm] Blood Pressure Mean 69 78 76 Blood Pressure Mean [Left Arm] Pulse Oximetry 100 99 99 Oxygen Delivery Method Nasal Cannula Nasal Cannula Nasal Cannula Oxygen Flow Rate 3 3 3 Sepsis Recent Fever Within 48 Hours Sepsis New/Unexplained Change in Mental Status Sepsis Action Taken by Nursing 01/21/23 12:32 01/21/23 12:45 Temperature Temperature Source Pulse Rate 62 70 Pulse Rate [Apical] Respiratory Rate 30 H 18 Respiratory Effort / Characteristics Respiratory Depth Blood Pressure 88/42 L 119/56 L Blood Pressure [Left Arm] Blood Pressure Mean 57 77 Blood Pressure Mean [Left Arm] Pulse Oximetry 94 98 Oxygen Delivery Method Nasal Cannula Nasal Cannula Oxygen Flow Rate 3 3 Sepsis Recent Fever Within 48 Hours Sepsis New/Unexplained Change in Mental Status Sepsis Action Taken by [facility] Medications Current Medication List: was personally reviewed by me Laboratory Data Attestation: I reviewed the patient's lab results. 01/21/23 10:22 01/21/23 10:22 Lab Results 01/21/23 01/21/23 01/21/23 Range/Units 10:22 10:35 10:50 WBC 12.49 H (4.8-10.8) K/ul RBC 2.63 L (4.20-5.40) M/uL Hgb 8.4 L (12.0-16.0) g/dl POC Hgb 8.2 L (12.0-16.0) g/dl Hct 26.3 L (37.0-47.0) % POC Hct 24 L (37-47) % MCV 100.0 (80.0-100.0) fL MCH 31.9 (25.0-34.0) pg MCHC 31.9 L (32.0-36.0) g/dL RDW Std Deviation 61.0 H (36.4-46.3) fL RDW Coeff of Bhavin 17.1 H (11.5-14.5) % Plt Count 239 (130-400) K/uL MPV 11.6 (9.4-12.4) fL Immature Gran % (Auto) 1.3 % Neut % (Auto) 79.1 % Lymph % (Auto) 8.0 % [place] % (Auto) 7.5 % Eos % (Auto) 3.5 % Baso % (Auto) 0.6 % Neut # (Auto) 9.88 H (1.40-6.50) K/uL Lymph # (Auto) 1.00 L (1.20-3.40) K/uL [place] # (Auto) 0.94 H (0.11-0.59) K/uL Eos # (Auto) 0.44 (0.00-0.50) K/uL Baso # (Auto) 0.07 (0.00-0.20) K/uL Immature Gran # (Auto) 0.16 (0.01-0.20) K/uL Absolute Nucleated RBC 0.02 (0.00-0.12) K/uL Nucleated RBC % (auto) 0.2 % PT 10.1 (9.0-12.0) Seconds INR 0.9 (0.9-1.1) APTT 26.0 (21.0-31.0) Seconds PTT Ratio 0.9 POC Sodium 138 (135-144) mmol/L Sodium 140 (136-145) mmol/L POC Potassium 4.7 (3.3-5.0) mmol/L Potassium 4.5 (3.5-5.1) mmol/L POC Chloride 99 L (101-112) mmol/L Chloride 99 (98-107) mmol/L Carbon Dioxide 30 (21-32) mmol/L POC Total CO2 31 (24-31) mmol/L Anion Gap 11 (3-11) POC Anion Gap 13.0 L (16-25) mmol/L POC BUN 63 H (7-18) mg/dl BUN 63 H (6-23) mg/dl Creatinine 9.59 H* (0.6-1.2) mg/dl POC Creatinine 10.2 H* (0.6-1.3) mg/dl Est Cr Clr Drug Dosing 5.9 ml/min Est GFR ( Amer) 4.1 ml/min Est GFR (Non-Af Amer) 3.6 ml/min BUN/Creatinine Ratio 6.6 L (10-20) Glucose 127 H (70-99(Fasting)) mg/dl POC Glucose (other) 147 H (70-99) mg/dl Calcium 8.8 (8.6-10.3) mg/dl POC Ioniz Calcium Oh 1.03 L (1.12-1.32) mmol/l Phosphorus 7.0 H (2.5-4.9) mg/dl Magnesium 2.3 (1.7-2.4) mg/dl Total Bilirubin 0.2 (0.2-1.0) mg/dl AST 16 (13-39) U/L ALT 5 L (7-52) U/L Alkaline Phosphatase 85 (34-104) U/L Troponin I High Sens 17.7 H (0-14) pg/ml Total Protein 7.0 (6.0-8.3) gm/dl Albumin 3.9 (3.4-5.0) gm/dl Globulin 3.1 (2.5-4.0) gm/dl Albumin/Globulin Ratio 1.3 (0.9-2) SARS-CoV-2, RNA, NAAT NEGATIVE (NEGATIVE) Blood Type O Positive Antibody Screen NEGATIVE Crossmatch See Detail Administered Medications Discontinued Medications Pantoprazole Sodium 80 mg/ (Dextrose) 120 mls @ 400 mls/hr IV NOW ONE Stop: 01/21/23 10:22 Last Infusion: 01/21/23 11:13 Dose: Infused Documented By: Admin: 01/21/23 10:30 Dose: 400 mls/hr Documented By: CARL Famotidine (Pepcid 20mg Iv Push) 20 mg in 5 mls @ 2.5 mls/min IV NOW STA Stop: 01/21/23 10:06 Last Admin: 01/21/23 10:33 Dose: 2.5 mls/min Documented By: CARL Sodium Chloride (Nss) 500 mls @ 999 mls/hr IV .Q31M ONE Stop: 01/21/23 10:54 Last Infusion: 01/21/23 11:44 Dose: Infused Documented By: Admin: 01/21/23 10:33 Dose: 999 mls/hr Documented By: CARL Albumin Human (Albumin 25%) 25 gm in 100 mls @ 50 mls/hr IV NOW STA Stop: 01/21/23 12:45 Last Infusion: 01/21/23 13:27 Dose: Infused Documented By: Admin: 01/21/23 11:10 Dose: 50 mls/hr Documented By: SERA Imaging Data Radiologist's Impression: Chest X-Ray 01/21/23 10:05 XR chest 1V portable HISTORY: 77 years-old Female sob acute shortness of breath COMPARISON: 09/05/2022 TECHNIQUE: AP view of the chest FINDINGS: Cardiac silhouette is enlarged. Atherosclerosis of the aorta. Pulmonary vascular congestion. No pneumothorax, large pleural effusion or lobar airspace consolidation. Bones appear grossly intact. IMPRESSION: Cardiomegaly with pulmonary vascular congestion. ACT 112: Negative or not required by law. The above report was generated using voice recognition software. It may contain grammatical, syntax or spelling errors. Electronically signed by: Benito Stiles M.D. 01/21/2023 10:45 AM Discharge Plan Visit Data Chief Complaint: Rectal Bleed Stated Complaint: VAG OR RECTAL BLEEDING ED Provider: Deep Salazar Discharge Problem: Hypotension, Rectal bleeding, Anemia, Dialysis patient Patient Disposition: Admitted As Inpatient Condition: Serious Forms Stand Alone Forms: My [facility] Prescriptions Prescriptions: No Action atorvastatin 80 mg tablet 80 mg PO QPM isosorbide mononitrate 30 mg tablet extended release 24 hr 30 mg PO QPM sertraline 100 mg tablet 100 mg PO QPM aspirin 81 mg Tablet,Delayed Release (Dr/Ec) 162 mg PO QAM Patient Comments: afternoon hours lidocaine-prilocaine 2.5-2.5 % cream 1 applic topical DIRECTED PRN (Reason: 1 HR PRIOR TO DIALYSIS) Rx Instructions: Apply small amount to access site 1 hr before dialysis. levothyroxine 125 mcg tablet 125 mcg PO QAM docusate sodium [Colace] 100 mg Capsule 100 mg PO Q2D Rx Instructions: 3 times per week carbidopa-levodopa 25-100 mg tablet 1 tab PO TIDM pregabalin 100 mg capsule 100 mg PO .BID 4DAYSWEEK Patient Comments: on dialysis days takes 2 in the evening , tu , and saturdays Rx Instructions: Take on Sun, mon, wed, fri, non dialyisis days Nanci-Samuel 0.8 mg Tablet 1 tab PO QPM pantoprazole 20 mg tablet,delayed release (DR/EC) 20 mg PO BID acetaminophen [Tylenol] 325 mg Tablet 650 mg PO Q6H PRN (Reason: Pain) meclizine 12.5 mg Tablet 12.5 mg PO TID PRN (Reason: Dizziness) hydrocortisone 2.5 % Cream With Perineal Applicator 1 applic CO DAILY PRN (Reason: Hemorrhoids) epinephrine [EpiPen] 0.3 mg/0.3 mL Auto-Injector 0.3 mg IM DIRECTED PRN (Reason: Allergic Reaction) melatonin 10 mg Tablet 10 mg PO HS PRN (Reason: Sleep) nystatin [Nystop] 100,000 unit/gram Powder 1 applic EXT BID Qty: 30 0RF Auryxia 210 mg iron tablet 420 mg PO TIDM lidocaine-prilocaine 2.5-2.5 % cream 1 applic topical DIRECTED pregabalin 100 mg capsule 100 mg PO .TID 3 DAYS A WEEK Rx Instructions: maile Herrmann, sat, On dialysis days fluticasone furoate-vilanterol [Breo Ellipta] 200-25 mcg/dose Blister With Device 1 inh INHALATION DAILY Referrals Referrals: Bella Villanueva MD [Primary Care Provider] - Discharge Problem: Hypotension Qualifiers: Hypotension type: unspecified hypotension type Qualified Code(s): I95.9 - Hypotension, unspecified Anemia Qualifiers: Anemia type: unspecified type Qualified Code(s): D64.9 - Anemia, unspecified
[2023-01-21] MEDS ORDERED: SODIUM CHLORIDE 0.9% 500 ML IV ONE (10:24)
[2023-01-21] MEDS ORDERED: ALBUMIN 25% 25 GM/100 ML VIAL IV STA (10:46)
--- NOTE | 2023-01-21 10:46 | XRay Report ---
XR chest 1V portable HISTORY: 77 years-old Female sob acute shortness of breath COMPARISON: 09/05/2022 TECHNIQUE: AP view of the chest FINDINGS: Cardiac silhouette is enlarged. Atherosclerosis of the aorta. Pulmonary vascular congestion. No pneum othorax, large pleural effusion or lobar airspace consolidation. Bones appear grossly intact. IMPRESSION: Cardiomegaly with pulmonary vascular congestion. ACT 112: Negative or not required by law. The above report was generated using voice recognition software. It may contain grammatical, syntax o r spelling errors. Electronically signed by: Benito Stiles M.D. 01/21/2023 10:45 AM
[2023-01-21 10:58] LABS: Basophils # (auto) 0.07 K/uL (0.00-0.20); Basophils % (auto) 0.6 %; Eosinophils # (auto) 0.44 K/uL (0.00-0.50); Eosinophils % (auto) 3.5 %; Hematocrit (blood only) 26.3 % (37.0-47.0); Hemoglobin 8.4 g/dl (12.0-16.0); Immature Granulocytes # (auto) 0.16 K/uL (0.01-0.20); Immature Granulocytes % (auto) 1.3 %; Mean Corpuscular Hemoglobin 31.9 pg (25.0-34.0); Mean Corpuscular Hgb Conc 31.9 g/dL (32.0-36.0); Mean Platelet Volume 11.6 fL (9.4-12.4); Monocytes # (auto) 0.94 K/uL (0.11-0.59); Monocytes % (auto) 7.5 %; Neutrophils # (auto) 9.88 K/uL (1.40-6.50); Neutrophils % (auto) 79.1 %; Nucleated RBC # (auto) 0.02 K/uL (0.00-0.12); Nucleated RBC % (auto) 0.2 %; Platelet Count 239 K/uL (130-400); RDW Coefficient of Variation 17.1 % (11.5-14.5); Red Blood Count 2.63 M/uL (4.20-5.40); White Blood Count 12.49 K/ul (4.8-10.8)
[2023-01-21] MEDS ORDERED: SODIUM CHLORIDE 0.9% 250 ML IV PRN (10:58)
[2023-01-21 11:03] LABS: iSTAT Creatinine 10.2 mg/dl (0.6-1.3); iSTAT Hemoglobin 8.2 g/dl (12.0-16.0); iSTAT Ionized Calcium 1.03 mmol/l (1.12-1.32); iSTAT Potassium 4.7 mmol/L (3.3-5.0)
[2023-01-21 11:18] LABS: Albumin Globulin Ratio 1.3 (0.9-2); Albumin Level 3.9 gm/dl (3.4-5.0); BUN Creatinine Ratio 6.6 (10-20); Bilirubin,Total 0.2 mg/dl (0.2-1.0); Calcium 8.8 mg/dl (8.6-10.3); Creatinine Clr Calc Pharmacy 5.9 ml/min; Est GFR (African American) 4.1 ml/min; Est GFR (Non-African American) 3.6 ml/min; Globulin 3.1 gm/dl (2.5-4.0); Magnesium 2.3 mg/dl (1.7-2.4); Potassium 4.5 mmol/L (3.5-5.1)
[2023-01-21 11:19] LABS: Troponin I High Sensitivity 17.7 pg/ml (0-14)
[2023-01-21 11:28] LABS: INR 0.9 (0.9-1.1); Partial Thromboplastin Ratio 0.9; Prothrombin Time 10.1 Seconds (9.0-12.0)
--- NOTE | 2023-01-21 11:43 | History & Physical Report ---
Date of Service January 21, 2023 Assessment & Plan (1) Rectal bleeding: (2) End stage chronic kidney disease: (3) Hemodialysis status: (4) Anemia: (5) Hypotension: (6) DM type 2 (diabetes mellitus, type 2): (7) Hypertension: (8) Parkinson disease: (9) LBBB (left bundle branch block): Plan This is a 77yo F with a PMH DM II, hypothyroidism, COPD, ESRD on hemodialysis, anemia, rheumatoid arthritis, h/o sacral ulcers, history of rectal bleeding 2/2 hemorrhoids and other medical problems listed below who presents from dialysis clinic with concern for rectal bleed. Rectal bleed Previously admitted in September 2022 and underwent colonoscopy, which showed internal/external hemorrhoids Presented today hypotensive with SBP in 60s (improved to 110s, normal HR, BUN 63, Cr 9.59) Hgb today 8.4 (similar to September admission) but outpatient hgb closer to 10-11 over the last few months Notifed by ED RN of black bowel movement in ED Made NPO, continue PPI bolus and drip, repeat H&H, hold aspirin, GI consult Giving 1u prbcs uring dialysis per discussion with Dr. Baig ESRD (end stage renal disease) on dialysis Sent over from dialysis today for concern for rectal bleed (last complete dialysis Friday, [facility] schedule) Cr 9.59, BUN 63, potassium 4.5, phos 7n CXR showing cardiomegaly with pulmonary vascular congestion Discussed case with Dr. Baig who plans to dialyze today now that BP improved DM II Diet controlled, A1c of 5.3 in May 2022 Diabetic diet, loose SSI while admitted BSG AC HS LBBB (left bundle branch block) Chronic Parkinson disease Continue Sinemet per home regimen Hypothyroidism Stable, continue levothyroxine RENÉ CPAP HS DVT Ppx: SCDs given bleed Code status: FULL CODE PCP: Kay Dispo: Admitted to PCU Patient seen in collaboration with Dr. Ochoa. Please see addendum. History of Present Illness Chief Complaint: rectal bleed Primary Care Provider: Bella Villanueva MD This is a 77yo F with a PMH DM II, hypothyroidism, COPD, ESRD on hemodialysis, anemia, rheumatoid arthritis, h/o sacral ulcers, history of rectal bleeding 2/2 hemorrhoids and other medical problems listed below who presents from dialysis clinic with concern for rectal bleed. Was admitted for rectal bleed in September and underwent colonoscopy which showed internal/external hemorrhoids. Hgb has remai herve around 8. Was found to have blood in underwear at dialysis earlier and was sent to ED before she was dialyzed. History obtained primarily from at bedside and reports intermittent darker maroon blood in toilet and in underwear. Denies any recent changes to how she is feeling besides feeling weak. No F/C, lightheadedness, CP, SOB, N/V, abdominal pain, dysuria, diarrhea or constipation. Urinates once a day. Allergies Allergy/AdvReac Type Severity Reaction Status Date / Time No Known Allergies Allergy Verified 09/11/22 09:39 Home Medications Medication Instructions Recorded Confirmed Type aspirin 81 mg tablet,delayed 162 mg PO QAM 11/15/21 01/21/23 History release atorvastatin 80 mg tablet 80 mg PO QPM 11/15/21 01/21/23 History carbidopa 25 mg-levodopa 100 mg 1 tab PO TIDM 11/15/21 01/21/23 History tablet docusate sodium 100 mg capsule 100 mg PO Q2D 11/15/21 01/21/23 History (Colace) isosorbide mononitrate 30 mg 30 mg PO QPM 11/15/21 01/21/23 History tablet,extended release 24 hr levothyroxine 125 mcg tablet 125 mcg PO QAM 11/15/21 01/21/23 History lidocaine-prilocaine 2.5 %-2.5 % 1 applic topical DIRECTED PRN 1 11/15/21 01/21/23 History topical cream HR PRIOR TO DIALYSIS pregabalin 100 mg capsule 100 mg PO .BID 4DAYSWEEK 11/15/21 01/21/23 History sertraline 100 mg tablet 100 mg PO QPM 11/15/21 01/21/23 History vitamin B complex-vitamin C-folic 1 tab PO QPM 04/16/22 01/21/23 History acid 0.8 mg tablet (Nanci-Samuel) pantoprazole 20 mg tablet,delayed 20 mg PO BID 05/23/22 01/21/23 History release acetaminophen 325 mg tablet 650 mg PO Q6H PRN Pain 09/05/22 01/21/23 History (Tylenol) epinephrine 0.3 mg/0.3 mL 0.3 mg IM DIRECTED PRN Allergic 09/05/22 01/21/23 History injection, auto-injector (EpiPen) Reaction hydrocortisone 2.5 % topical cream 1 applic UT DAILY PRN Hemorrhoids 09/05/22 01/21/23 History with perineal applicator meclizine 12.5 mg tablet 12.5 mg PO TID PRN Dizziness 09/05/22 01/21/23 History melatonin 10 mg tablet 10 mg PO HS PRN Sleep 09/05/22 01/21/23 History nystatin 100,000 unit/gram topical 1 applic EXT BID #30 grams 09/09/22 01/21/23 Rx powder (Nystop) ferric citrate 210 mg iron tablet 420 mg PO TIDM 01/21/23 01/21/23 History (Auryxia) fluticasone furoate 200 1 inh inhalation DAILY 01/21/23 01/21/23 History mcg-vilanterol 25 mcg/dose inhalation powder (Breo Ellipta) lidocaine-prilocaine 2.5 %-2.5 % 1 applic topical DIRECTED 01/21/23 01/21/23 History topical cream pregabalin 100 mg capsule 100 mg PO .TID 3 DAYS A WEEK 01/21/23 01/21/23 History Past Med/Surg History Medical History (Updated 01/21/23 @ 13:53 by Keya Chaudhry PA-C) End stage chronic kidney disease AV fistula R arm Limb alert care status R arm History of recent hospitalization d/c 09/09/22>per medical record, pt sent to ER at [facility] following dialysis for reddened sores on her buttocks. Admitting dx was enterococcus UTI, decubitus ulcer and sacral cellulitis. Difficult intravenous access Black stools Mobility impaired pt non compliant with hx pt treatments / PT IS IN WHEELCHAIR/TOTAL ASSIST Poor short term memory [place] (hard of hearing) COPD (chronic obstructive pulmonary disease) no medications for currently History of stroke 2019- pts spouse poor historian pt denies hx stroke History of anesthesia reaction "hard time waking up" Hx: recurrent pneumonia History of COVID-19 ? early 2021- mild congestion, no hospitalization, no current issues Non-ST elevation DC (NSTEMI) pt spouse not sure/ mild ? remembers something mentioned in hx/ ? details ESRD (end stage renal disease) on dialysis tues, thur & sat ([place]) Aspiration pneumonia HX Morbid obesity Parkinson disease Rheumatoid arthritis ? current status/no meds for Chronic diastolic heart failure EF 50% on 01/2020 echo RACHEL (iron deficiency anemia) Subdural hematoma hx fall 2019 - tx to [facility]/no surgical intervention LBBB (left bundle branch block) RENÉ on CPAP Depression Meniere's disease Generalized anxiety disorder Dyslipidemia Restless leg syndrome Diabetes mellitus, type II hx / NO MEDS Hypothyroidism HTN (hypertension) Surgical History Hx of arteriovenostomy for renal dialysis right arm History of tubal ligation History of carpal tunnel surgery B/L History of orthopedic surgery " bilat heel surgery" H/O sinus surgery Hx of total knee arthroplasty B/L Family History Other AAA (abdominal aortic aneurysm) Diabetes Family history non-contributory Hypertension Myotonic dystrophy Social History Smoking Status: Former smoker Cigarettes Per Day: 0.25ppd; Smoking End Date: 1997; Second Hand Exposure: No; Do You Dip or Chew Tobacco: No; Hx Alcohol Use: No Hx Substance Use: No Preferred Language: [place]uran Communication Ability: Effective Communication Ability Comment: pt sometimes has difficulty understanding things, is POA [employer] Required: No Beliefs That Will Affect Care: None marital status: Current Living Situation: Spouse Current Living Situation Comment: is caregiver, also uses S home care Feels Safe at Home: Yes Assistive Devices: Mechanical Lift and Wheelchair Review of Systems Review of Systems: At least ten systems reviewed and negative except as noted in the HPI. Physical Exam Physical Exam: Please see Dr. Ochoa's addendum for physical exam. Results & Data Results & Data Vital Signs (Past 12 Hours) Vital Signs Temp Pulse Pulse Resp BP Pulse Ox O2 Del Method 01/21/23 11:09 64 17 85/38 L 98 Nasal Cannula 01/21/23 10:43 61 16 97 Nasal Cannula 01/21/23 10:42 99 Nasal Cannula 01/21/23 10:19 62 01/21/23 10:09 36.3 C L 64 16 88 L Room Air O2 Flow Rate 01/21/23 11:09 3 01/21/23 10:43 2 01/21/23 10:42 2 01/21/23 10:19 01/21/23 10:09 Laboratory Results Short CBC 01/21/23 Range/Units 10:22 WBC 12.49 H (4.8-10.8) K/ul Hgb 8.4 L (12.0-16.0) g/dl Hct 26.3 L (37.0-47.0) % Plt Count 239 (130-400) K/uL BMP 01/21/23 10:22 Sodium 140 Potassium 4.5 Chloride 99 Carbon Dioxide 30 BUN 63 H Creatinine 9.59 H* Glucose 127 H Calcium 8.8 Liver Function 01/21/23 Range/Units 10:22 Total Bilirubin 0.2 (0.2-1.0) mg/dl AST 16 (13-39) U/L ALT 5 L (7-52) U/L Alkaline Phosphatase 85 (34-104) U/L Albumin 3.9 (3.4-5.0) gm/dl Diagnostic Findings Chest X-Ray 01/21/23 10:05 XR chest 1V portable HISTORY: 77 years-old Female sob acute shortness of breath COMPARISON: 09/05/2022 TECHNIQUE: AP view of the chest FINDINGS: Cardiac silhouette is enlarged. Atherosclerosis of the aorta. Pulmonary vascular congestion. No pneumothorax, large pleural effusion or lobar airspace co nsolidation. Bones appear grossly intact. IMPRESSION: Cardiomegaly with pulmonary vascular congestion. ACT 112: Negative or not required by law. The above report was generated using voice recognition software. It may contain grammatical, syntax or spelling errors. Electronically signed by: Benito Stiles M.D. 01/21/2023 10:45 AM Supervising Physician Co-Signing Physician Notes 77-year-old lady with PMH of T2DM, hypothyroidism, COPD, ESRD on HD, RA, anemia, history of sacral ulcers, history of rectal bleeding secondary to hemorrhoids presented to the ED from dialysis clinic after noting blood in her underwear pants. Patient appears lethargic/weak/drowsy at bedside. Per patient's , this has been her new baseline since last 2 weeks. He mentions that she has been having on and off bleeding during bowel movements since several months. She has gotten weak lately. Patient denies any nausea/vomiting/sore throat/cough/chest pain/belly pain/headache/dizziness/acute changes in her bowel or bladder habits/appetite changes. Patient quit smoking 25 years ago, denies use of alcohol or recreational drugs. Full code Labs reviewed, creatinine elevated in a hemodialysis patient. Patient did not get her dialysis in the morning. Hemoglobin closer to her baseline around 8.4 at presentation. Chest x-ray with some vascular congestion, troponin minimally elevated, likely demand ischemia. Patient makes urine once daily, has already gotten 500 mL of fluid in the ED. We will be transfusing 1 unit PRBC, will need dialysis/nephrology on board. GI bleed, likely lower GI: Transfuse blood, GI consult, n.p.o. for now, PPI drip. Hold aspirin. Monitor H&H every 8 hours. Labs in AM. ESRD on HD: Will need dialysis today due to need for blood and congestive changes in the lungs xr, patient requiring 3 L oxygen at bedside, no oxygen needed at home. On exam: GENERAL: Lethargic, tired, oriented. NAD, on 3 L oxygen via nasal cannula. Appears ill/frail/weak. Obese class III. HEENT: No pallor, no icterus. Pupils equal, round and reactive to light. Oral mucosa moist. NECK: No JVD, no neck masses. HEART: S1 and S2 heard. Regular rate and rhythm. No murmur, no gallop. RESPIRATORY SYSTEM: Normal AP diameter. No accessory muscle use. No wheezing, decreased breath sounds bilaterally due to morbid obesity. ABDOMEN: Soft, bowel sounds present, nontender, no distention. CENTRAL NERVOUS SYSTEM: No facial droop. Speech is clear. Obeys simple commands. Moves extremities. EXTREMITIES: Trace BLE edema, no erythema seen. I have seen and examined the patient and have discussed the case with the provider above. I agree with the assessment and plan as stated. (4) Anemia Anemia type: unspecified type Qualified Code(s): D64.9 - Anemia, unspecified (5) Hypotension Hypotension type: unspecified hypotension type Qualified Code(s): I95.9 - Hypotension, unspecified (7) Hypertension Hypertension type: essential hypertension Qualified Code(s): I10 - Essential (primary) hypertension
[2023-01-21] MEDS ORDERED: SODIUM CHLORIDE 0.9% 1,000 ML IV PRN (13:10)
[2023-01-21] MEDS ORDERED: EPOETIN ALFA 20,000 UNITS/ML VIAL IV SCH (13:10)
--- NOTE | 2023-01-21 13:52 | Electrocardiogram Report ---
Test Reason : Blood Pressure : / mmHG Vent. Rate : 058 BPM Atrial Rate : 058 BPM P-R Int : 164 ms QRS Dur : 146 ms QT Int : 504 ms P-R-T Axes : 035 048 073 degrees QTc Int : 494 ms Sinus bradycardia with occasional Premature ventricular complexes Left bundle branch block Abnormal ECG When compared with ECG of 20-SEP-2022 07:57, Premature ventricular complexes are now Present Nonspecific T wave abnormality now evident in Lateral leads Confirmed by Angel Lopez ([id number]) on 01/21/2023 1:52:02 PM Referred By: Confirmed By:Angel Lopez
[2023-01-21] MEDS ORDERED: POLYETHYLENE (MIRALAX) 17 GM PACK PO PRN (14:17)
[2023-01-21] MEDS ORDERED: MECLIZINE 12.5 MG TAB PO PRN (14:17)
[2023-01-21] MEDS ORDERED: ACETAMINOPHEN 325 MG TAB PO PRN (14:17)
[2023-01-21] MEDS ORDERED: ONDANSETRON INJ 2 MG/ML 2 ML VIAL IV PRN (14:17)
[2023-01-21] MEDS ORDERED: HYDROCORTISONE HC 2.5% CRM 30GM TUBE EXT PRN (14:17)
[2023-01-21] MEDS ORDERED: DEXTROSE 50% 50 ML SYRINGE IV PRN (14:19)
[2023-01-21] MEDS ORDERED: GLUCOSE 40% GEL 15 GM TUBE PO PRN (14:19)
[2023-01-21] MEDS ORDERED: GLUCAGON FOR INJ 1 MG VIAL SQ PRN (14:19)
[2023-01-21] MEDS ORDERED: GLUCOSE 10 TAB/TUBE PO PRN (14:19)
[2023-01-21] MEDS ORDERED: PANTOPRAZOLE BOLUS/DRIP IV STA (14:19)
[2023-01-21] MEDS ORDERED: CARBOHYDRATES FOR HYPOGLYCEMIA PO PRN (14:19)
--- NOTE | 2023-01-21 14:36 | Gastrointestinal Consultation ---
Date of Consultation January 21, 2023 Assessment & Plan (1) Anemia: (2) Rectal bleeding: (3) Dialysis patient: Plan This is a 77 y/o female w/ ESRD on dialysis, w/ anemia and chronic intermittent bleeding (unclear if from rectum/vagina), and recent endoscopic workup this year w/o source, but showed duodenitis/jejunitis, esophagitis wo bleeding, and diverticulosis, int/ext hemorrhoids. Hysteroscopy w thickened endometrium w benign path. Admitted after coming in with recurrent (? rectal) bleeding; of unclear source, but may be related to hemorrhoids. HGB not far from baseline; is 8.4 (baseline 8-9). She does have large hemorrhoids on exam. Abd soft, nontender. VSS. - No plans for repeat endoscopy at this time - Recommend supportive care - Trend H/H - Transfuse PRN - Monitor and document GI output - Daily PPI - Avoid NSAIDs - Consider topical hemorrhoid cream, SITZ baths PRN Thank you for allowing us to participate in the care of this patient. Please call with any acute changes, questions or concerns. Please see addendum below with additional recommendation from my supervising physician. Supervising Physician Co-Signing Physician Notes I performed a history and physical examination of the patient today, including specifically on physical exam - soft abdomen. I have discussed the patient's management with the advanced practitioner. Please refer to the nurse practitio ner's note for the documented findings and plan of care. History of Present Illness Reason for Consultation: rectal bleed Requesting Physician: Keya Chaudhry PA-C Attending Physician: David Ochoa MD History of Present Illness This is a 76 year old female with history of ESRD on HD, PD, HTN, dyslipidemia, AYSHA, T2DM, RENÉ, RA, CHF, chronic anemia, others below who was referred from dialysis today for bleeding (? unclear from rectum vs vagina). HGB chronically runs 8-9 and is 8.4 currently. BUN/cr up as she missed dialysis, getting dialyzed today. Normal PLT, LFTs. Her is at bedside and helps with the history. Pt is [place]. For more than a year has had intermittent painless bleeding but cannot tell where exactly she is bleeding from - notices that when pt uses toilet water may be red, and when she is getting changed, she may have dark to red stain. Her thinks this happens a few days a week; sometimes none for several days. Bowels move perhaps a few times a week; they're not charli; usually dark. On oral iron. She takes a stool softener daily and also uses topical hemorrhoid cream PRN. Pt denies vaginal bleeding, dysuria, hematuria. Pt had extensive endoscopic workup earlier this year as below, w/o any definitive source bleeding identified, but showed mild duodenitis/jejunitis, esophagitis wo bleeding, and diverticulosis, int/ext hemorrhoids. Hysteroscopy w thickened endometrium w benign path. Denies abd pain, nausea, vomiting. No GERD. No dysphagia. No fever, chills, CP, SOB. Appetite is "too good." She follows with heme/onc for her anemia, which is macrocytic; has normal vitamin b12 and folic acid level. On ASA No NSAIDs Not on PPI VCE 10/2022: Mild duodenitis/jejunitis Colonoscopy 09/20/2022: - Preparation of the colon was fair. - One 7 mm polyp in the descending colon, removed with a cold snare. Resected and retrieved. - Diverticulosis in the sigmoid colon. - External and internal hemorrhoids A. Colon, descending, polypectomy: - Serrated polyp, cannot exclude sessile serrated adenoma. B. Endometrium, sharp curettage: - Fragments of endometrial polyp and atrophic endometrium. C. Endometrium, polyp, curettage: - Atrophic endometrium with variable cystic change. EGD 2022: - Normal esophagus. - LA Grade B esophagitis with no bleeding. - Z-line variable. - Normal stomach. - Erythematous mucosa in the gastric body and antrum. Biopsied. - Erythematous duodenopathy. FINAL DIAGNOSIS Stomach, biopsy: - Mild chronic gastritis. Reactive cellular changes consistent with reactive gastropathy. - Helicobacter pylori immunohistochemistry stain: Negative. EGD 2022: - Normal esophagus. - Regular Z-line. - Food in the stomach. - Normal duodenal bulb and second portion of the Duodenum. CT chest/abd/pelvis wo contrast 05/23/2022: 1. There is no acute posttraumatic intrathoracic abnormality. 2. There is no airspace consolidation, pleural effusion, or pneumothorax. 3. Cardiomegaly. 4. There is no evidence of solid organ injury in the abdomen or pelvis on this unenhanced examination. 5. The endometrium appears thickened and heterogeneous. This is not well assessed by CT. Nonemergent follow-up with gynecology and pelvic ultrasound is recommended for further assessment. Colon 2016: Diverticulosis in the sigmoid colon. - The examination was otherwise normal. - No specimens collected. Family history of GI malignancy: none Allergies Allergy/AdvReac Type Severity Reaction Status Date / Time No Known Allergies Allergy Verified 09/11/22 09:39 Home Medications Medication Instructions Recorded Confirmed Type aspirin 81 mg tablet,delayed 162 mg PO QAM 11/15/21 01/21/23 History release atorvastatin 80 mg tablet 80 mg PO QPM 11/15/21 01/21/23 History carbidopa 25 mg-levodopa 100 mg 1 tab PO TIDM 11/15/21 01/21/23 History tablet docusate sodium 100 mg capsule 100 mg PO Q2D 11/15/21 01/21/23 History (Colace) isosorbide mononitrate 30 mg 30 mg PO QPM 11/15/21 01/21/23 History tablet,extended release 24 hr levothyroxine 125 mcg tablet 125 mcg PO QAM 11/15/21 01/21/23 History lidocaine-prilocaine 2.5 %-2.5 % 1 applic topical DIRECTED PRN 1 11/15/21 01/21/23 History topical cream HR PRIOR TO DIALYSIS pregabalin 100 mg capsule 100 mg PO .BID 4DAYSWEEK 11/15/21 01/21/23 History sertraline 100 mg tablet 100 mg PO QPM 11/15/21 01/21/23 History vitamin B complex-vitamin C-folic 1 tab PO QPM 04/16/22 01/21/23 History acid 0.8 mg tablet (Nanci-Samuel) pantoprazole 20 mg tablet,delayed 20 mg PO BID 05/23/22 01/21/23 History release acetaminophen 325 mg tablet 650 mg PO Q6H PRN Pain 09/05/22 01/21/23 History (Tylenol) epinephrine 0.3 mg/0.3 mL 0.3 mg IM DIRECTED PRN Allergic 09/05/22 01/21/23 History injection, auto-injector (EpiPen) Reaction hydrocortisone 2.5 % topical cream 1 applic [place] DAILY PRN Hemorrhoids 09/05/22 01/21/23 History with perineal applicator meclizine 12.5 mg tablet 12.5 mg PO TID PRN Dizziness 09/05/22 01/21/23 History melatonin 10 mg tablet 10 mg PO HS PRN Sleep 09/05/22 01/21/23 History nystatin 100,000 unit/gram topical 1 applic EXT BID #30 grams 09/09/22 01/21/23 Rx powder (Nystop) ferric citrate 210 mg iron tablet 420 mg PO TIDM 01/21/23 01/21/23 History (Auryxia) fluticasone furoate 200 1 inh inhalation DAILY 01/21/23 01/21/23 History mcg-vilanterol 25 mcg/dose inhalation powder (Breo Ellipta) lidocaine-prilocaine 2.5 %-2.5 % 1 applic topical DIRECTED 01/21/23 01/21/23 History topical cream pregabalin 100 mg capsule 100 mg PO .TID 3 DAYS A WEEK 01/21/23 01/21/23 History Patient History Medical History (Updated 01/21/23 @ 13:53 by Keya Chaudhry PA-C) End stage chronic kidney disease AV fistula R arm Limb alert care status R arm History of recent hospitalization d/c 09/09/22>per medical record, pt sent to ER at [facility] following dialysis for reddened sores on her buttocks. Admitting dx was enterococcus UTI, decubitus ulcer and sacral cellulitis. Difficult intravenous access Black stools Mobility impaired pt non compliant with hx pt treatments / PT IS IN WHEELCHAIR/TOTAL ASSIST Poor short term memory [place] (hard of hearing) COPD (chronic obstructive pulmonary disease) no medications for currently History of stroke 2019- pts spouse poor historian pt denies hx stroke History of anesthesia reaction "hard time waking up" Hx: recurrent pneumonia History of COVID-19 ? early 2021- mild congestion, no hospitalization, no current issues Non-ST elevation [place] (NSTEMI) pt spouse not sure/ mild ? remembers something mentioned in hx/ ? details ESRD (end stage renal disease) on dialysis tues, thur & sat ([place]) Aspiration pneumonia HX Morbid obesity Parkinson disease Rheumatoid arthritis ? current status/no meds for Chronic diastolic heart failure EF 50% on 01/2020 echo RACHEL (iron deficiency anemia) Subdural hematoma hx fall 2019 - tx to [facility]/no surgical intervention LBBB (left bundle branch block) RENÉ on CPAP Depression Meniere's disease Generalized anxiety disorder Dyslipidemia Restless leg syndrome Diabetes mellitus, type II hx / NO MEDS Hypothyroidism HTN (hypertension) Surgical History Hx of arteriovenostomy for renal dialysis right arm History of tubal ligation History of carpal tunnel surgery B/L History of orthopedic surgery " bilat heel surgery" H/O sinus surgery Hx of total knee arthroplasty B/L Family History Other AAA (abdominal aortic aneurysm) Diabetes Family history non-contributory Hypertension Myotonic dystrophy Social History Smoking Status: Former smoker Tobacco Type: Cigarettes Cigarettes Per Day: 0.25ppd; Smoking End Date: 20-25 years ago; Second Hand Exposure: No; Do You Dip or Chew Tobacco: No; Hx Alcohol Use: No Hx Substance Use: No Preferred Language: Maltese Communication Ability: Effective Communication Ability Comment: pt sometimes has difficulty understanding things, is POA Hand Alterations Seamstress Required: No Beliefs That Will Affect Care: None marital status: Current Living Situation: Spouse Current Living Situation Comment: is caregiver, also uses [facility] home care Other Information That Helps Us Care for You: No Feels Safe at Home: Yes Safety Concerns: Feels Safe At This Time Assistive Devices: Glasses, Hearing Aid - Bilateral, Oxygen - at Night and Wheelchair Assistive Devices Comment: electric wheelchair Review of Systems Review of Systems: All systems reviewed & are unremarkable except as noted in HPI & below Physical Exam Constitutional: well developed, well nourished and comfortable; no acute distress Eyes: Sclera anicteric ENMT: moist mucous membranes, mild pallor Neck: trachea midline supple Respiratory: normal respiratory effort, lungs clear to auscultation Cardiovascular: RRR, no murmur, no edema Gastrointestinal (Abdomen): normal bowel sounds, soft, nontender, no hepatosplenomegaly Inspection/Auscultation: abdomen not distended Rectal exam: Large external hemorrhoids; nonthrombosed; no stool in rectal vault; no masses; no melena, hematochezia Skin: no rashes, warm and dry Neurologic: alert and oriented x 3 however needs help for some recall of recent events Psychiatric: normal mood and affect Results & Data Vital Signs (Past 12 Hours) Vital Signs Temp Pulse Pulse Resp BP BP Pulse Ox 01/21/23 14:23 70 01/21/23 12:45 70 18 119/56 L 98 01/21/23 12:32 62 30 H 88/42 L 94 01/21/23 12:15 68 14 114/57 L 99 01/21/23 12:00 62 15 111/62 99 01/21/23 11:45 66 15 87/60 L 100 01/21/23 11:30 58 L 14 116/58 L 94 01/21/23 11:09 64 17 85/38 L 98 01/21/23 10:43 61 16 97 01/21/23 10:42 99 01/21/23 10:19 62 01/21/23 10:09 36.3 C L 64 16 88 L O2 Del Method O2 Flow Rate 01/21/23 14:23 01/21/23 12:45 Nasal Cannula 3 01/21/23 12:32 Nasal Cannula 3 01/21/23 12:15 Nasal Cannula 3 01/21/23 12:00 Nasal Cannula 3 01/21/23 11:45 Nasal Cannula 3 01/21/23 11:30 Nasal Cannula 3 01/21/23 11:09 Nasal Cannula 3 01/21/23 10:43 Nasal Cannula 2 01/21/23 10:42 Nasal Cannula 2 01/21/23 10:19 01/21/23 10:09 Room Air Laboratory Results 01/21/23 01/21/23 01/21/23 Range/Units 10:50 10:35 10:22 WBC 12.49 H (4.8-10.8) K/ul RBC 2.63 L (4.20-5.40) M/uL Hgb 8.4 L (12.0-16.0) g/dl POC Hgb 8.2 L (12.0-16.0) g/dl Hct 26.3 L (37.0-47.0) % POC Hct 24 L (37-47) % MCV 100.0 (80.0-100.0) fL MCH 31.9 (25.0-34.0) pg MCHC 31.9 L (32.0-36.0) g/dL RDW Std Deviation 61.0 H (36.4-46.3) fL RDW Coeff of Bhavin 17.1 H (11.5-14.5) % Plt Count 239 (130-400) K/uL MPV 11.6 (9.4-12.4) fL Immature Gran % (Auto) 1.3 % Neut % (Auto) 79.1 % Lymph % (Auto) 8.0 % Cocke % (Auto) 7.5 % Eos % (Auto) 3.5 % Baso % (Auto) 0.6 % Neut # (Auto) 9.88 H (1.40-6.50) K/uL Lymph # (Auto) 1.00 L (1.20-3.40) K/uL Cocke # (Auto) 0.94 H (0.11-0.59) K/uL Eos # (Auto) 0.44 (0.00-0.50) K/uL Baso # (Auto) 0.07 (0.00-0.20) K/uL Immature Gran # (Auto) 0.16 (0.01-0.20) K/uL Absolute Nucleated RBC 0.02 (0.00-0.12) K/uL Nucleated RBC % (auto) 0.2 % PT 10.1 (9.0-12.0) Seconds INR 0.9 (0.9-1.1) APTT 26.0 (21.0-31.0) Seconds PTT Ratio 0.9 POC Sodium 138 (135-144) mmol/L Sodium 140 (136-145) mmol/L POC Potassium 4.7 (3.3-5.0) mmol/L Potassium 4.5 (3.5-5.1) mmol/L POC Chloride 99 L (101-112) mmol/L Chloride 99 (98-107) mmol/L Carbon Dioxide 30 (21-32) mmol/L POC Total CO2 31 (24-31) mmol/L Anion Gap 11 (3-11) POC Anion Gap 13.0 L (16-25) mmol/L POC BUN 63 H (7-18) mg/dl BUN 63 H (6-23) mg/dl Creatinine 9.59 H* (0.6-1.2) mg/dl POC Creatinine 10.2 H* (0.6-1.3) mg/dl Est Cr Clr Drug Dosing 5.9 ml/min Est GFR ( Amer) 4.1 ml/min Est GFR (Non-Af Amer) 3.6 ml/min BUN/Creatinine Ratio 6.6 L (10-20) Glucose 127 H (70-99(Fasting)) mg/dl POC Glucose (other) 147 H (70-99) mg/dl Calcium 8.8 (8.6-10.3) mg/dl POC Ioniz Calcium Oh 1.03 L (1.12-1.32) mmol/l Phosphorus 7.0 H (2.5-4.9) mg/dl Magnesium 2.3 (1.7-2.4) mg/dl Total Bilirubin 0.2 (0.2-1.0) mg/dl AST 16 (13-39) U/L ALT 5 L (7-52) U/L Alkaline Phosphatase 85 (34-104) U/L Troponin I High Sens 17.7 H (0-14) pg/ml Total Protein 7.0 (6.0-8.3) gm/dl Albumin 3.9 (3.4-5.0) gm/dl Globulin 3.1 (2.5-4.0) gm/dl Albumin/Globulin Ratio 1.3 (0.9-2) SARS-CoV-2, RNA, NAAT NEGATIVE (NEGATIVE) Blood Type O Positive Antibody Screen NEGATIVE Crossmatch See Detail (1) Anemia Anemia type: unspecified type Qualified Code(s): D64.9 - Anemia, unspecified
[2023-01-21] MEDS: PANTOprazole 40 MG in DEXTROSE 5% MINI-B 100 ML IV SCH ×2 (15:11→21:29)
[2023-01-21] MEDS: CARBIDOPA/LEVODOPA 25/100MG TAB PO SCH (19:51)
[2023-01-21] MEDS: ATORVASTATIN 40 MG TAB PO SCH (21:27)
[2023-01-21] MEDS: ISOSORBIDE MONO EXTENDED REL 30 MG TABCR PO SCH (21:28)
[2023-01-21] MEDS: SERTRALINE HCL 100 MG TABLET PO SCH (21:28)
[2023-01-21] MEDS: NEPHROCAPS PO SCH (21:31)
[2023-01-21] MEDS: MELATONIN 3 MG TAB PO PRN (21:39)
[2023-01-21 22:02] LABS: Hematocrit (blood only) 29.5 % (37.0-47.0); Hemoglobin 9.5 g/dl (12.0-16.0)
[2023-01-22] MEDS: INSULIN ASPART PER UNIT CHARGE SC SCH ×6 (00:04→20:07)
[2023-01-22] MEDS ORDERED: Nursing to Pharmacy Communication SCH ×2 (00:30→14:45)
[2023-01-22] MEDS: PANTOprazole 40 MG in DEXTROSE 5% MINI-B 100 ML IV SCH ×4 (02:03→18:11)
[2023-01-22] MEDS: LEVOTHYROXINE SODIUM 125 MCG TABLET PO SCH (06:26)
[2023-01-22] MEDS: CARBIDOPA/LEVODOPA 25/100MG TAB PO SCH ×3 (08:45→17:55)
[2023-01-22] MEDS: DOCUSATE SODIUM 100 MG CAP PO SCH (08:45)
[2023-01-22] MEDS: FLUTICASONE/VILANTEROL 200/25MCG 14 PUFFS/INHALER INH SCH (08:46)
[2023-01-22] MEDS: PREGABALIN 100 MG CAP PO SCH ×3 (08:48→22:15)
[2023-01-22 09:02] LABS: Basophils # (auto) 0.06 K/uL (0.00-0.20); Basophils % (auto) 0.6 %; Eosinophils # (auto) 0.25 K/uL (0.00-0.50); Eosinophils % (auto) 2.5 %; Hematocrit (blood only) 27.4 % (37.0-47.0); Hemoglobin 8.6 g/dl (12.0-16.0); Immature Granulocytes # (auto) 0.12 K/uL (0.01-0.20); Immature Granulocytes % (auto) 1.2 %; Lymphocytes # (auto) 0.79 K/uL (1.20-3.40); Lymphocytes % (auto) 7.9 %; Mean Corpuscular Hemoglobin 31.2 pg (25.0-34.0); Mean Corpuscular Hgb Conc 31.4 g/dL (32.0-36.0); Mean Corpuscular Volume 99.3 fL (80.0-100.0); Mean Platelet Volume 10.7 fL (9.4-12.4); Monocytes # (auto) 0.77 K/uL (0.11-0.59); Monocytes % (auto) 7.7 %; Neutrophils # (auto) 7.99 K/uL (1.40-6.50); Neutrophils % (auto) 80.1 %; Nucleated RBC # (auto) 0.03 K/uL (0.00-0.12); Nucleated RBC % (auto) 0.3 %; Platelet Count 210 K/uL (130-400); RDW Coefficient of Variation 17.2 % (11.5-14.5); RDW Standard Deviation 60.7 fL (36.4-46.3); Red Blood Count 2.76 M/uL (4.20-5.40); White Blood Count 9.98 K/ul (4.8-10.8)
[2023-01-22 09:27] LABS: Calcium 9.1 mg/dl (8.6-10.3); Potassium 4.2 mmol/L (3.5-5.1)
[2023-01-22 09:44] LABS: BUN Creatinine Ratio 4.1 (10-20); Creatinine Clr Calc Pharmacy 9.2 ml/min; Est GFR (African American) 7.2 ml/min; Est GFR (Non-African American) 6.2 ml/min
--- NOTE | 2023-01-22 10:44 | Nephrology Consultation ---
Date of Consultation January 22, 2023 Assessment & Plan (1) Hemodialysis status: ESRD patient TTS schedule and she did receive dialysis as an inpatient. No need of dialysis today. If she is still in the hospital she will get her regular dialysis no major fluid electrolyte issue (2) Rectal bleeding: Acute on chronic possible rectal bleeding. Already been evaluated by gastroenterology and she did receive 1 unit of blood transfusion. No plan for endoscopy or colonoscopy at this point (3) Anemia: History of Present Illness Reason for Consultation: ESRD admitted with GI bleed Attending Physician: Katherine Colmenares MD History of Present Illness 77-year-old female with ESRD on chronic, dialysis Friday in [place] was sent over from the dialysis unit because of rectal bleeding. There was some confusion whether this was rectal or vaginal bleeding. However patient has had intermittent rectal bleed for some time and has been evaluated by gastroenterology in the past. Hemoglobin was within baseline but she was hypotensive on presentation and because of that she did receive 1 unit of blood transfusion with dialysis. However her blood pressure is not low anymore. She has been evaluated by gastroenterology and there is no plan for endoscopy at this time and is getting Protonix drip. No issues with her dialysis yesterday Review of system----unable to obtain as patient was very sleepy and did not really want to answer questions Physical examination--- elderly white female who is not in any overt respiratory distress she is awake and alert but very sleepy and could not test orientation. Blood pressure 107 x 65 pulse rate 64 temperature 36.494% on 3 L nasal cannula oxygen Mucous midline is moist neck is supple Chest bilateral decreased breath sound poor inspiratory effort limiting the quality of the exam CVS S1-S2 regular systolic murmur heard abdomen is soft nontender Extremities shows 1+ edema Allergies Allergy/AdvReac Type Severity Reaction Status Date / Time No Known Allergies Allergy Verified 09/11/22 09:39 Home Medications Medication Instructions Recorded Confirmed Type aspirin 81 mg tablet,delayed 162 mg PO QAM 11/15/21 01/21/23 History release atorvastatin 80 mg tablet 80 mg PO QPM 11/15/21 01/21/23 History carbidopa 25 mg-levodopa 100 mg 1 tab PO TIDM 11/15/21 01/21/23 History tablet docusate sodium 100 mg capsule 100 mg PO Q2D 11/15/21 01/21/23 History (Colace) isosorbide mononitrate 30 mg 30 mg PO QPM 11/15/21 01/21/23 History tablet,extended release 24 hr levothyroxine 125 mcg tablet 125 mcg PO QAM 11/15/21 01/21/23 History lidocaine-prilocaine 2.5 %-2.5 % 1 applic topical DIRECTED PRN 1 11/15/21 01/21/23 History topical cream HR PRIOR TO DIALYSIS pregabalin 100 mg capsule 100 mg PO .BID 4DAYSWEEK 11/15/21 01/21/23 History sertraline 100 mg tablet 100 mg PO QPM 11/15/21 01/21/23 History vitamin B complex-vitamin C-folic 1 tab PO QPM 04/16/22 01/21/23 History acid 0.8 mg tablet (Nanci-Samuel) pantoprazole 20 mg tablet,delayed 20 mg PO BID 05/23/22 01/21/23 History release acetaminophen 325 mg tablet 650 mg PO Q6H PRN Pain 09/05/22 01/21/23 History (Tylenol) epinephrine 0.3 mg/0.3 mL 0.3 mg IM DIRECTED PRN Allergic 09/05/22 01/21/23 History injection, auto-injector (EpiPen) Reaction hydrocortisone 2.5 % topical cream 1 applic [place] DAILY PRN Hemorrhoids 09/05/22 01/21/23 History with perineal applicator meclizine 12.5 mg tablet 12.5 mg PO TID PRN Dizziness 09/05/22 01/21/23 History melatonin 10 mg tablet 10 mg PO HS PRN Sleep 09/05/22 01/21/23 History nystatin 100,000 unit/gram topical 1 applic EXT BID #30 grams 09/09/22 01/21/23 Rx powder (Nystop) ferric citrate 210 mg iron tablet 420 mg PO TIDM 01/21/23 01/21/23 History (Auryxia) fluticasone furoate 200 1 inh inhalation DAILY 01/21/23 01/21/23 History mcg-vilanterol 25 mcg/dose inhalation powder (Breo Ellipta) lidocaine-prilocaine 2.5 %-2.5 % 1 applic topical DIRECTED 01/21/23 01/21/23 History topical cream pregabalin 100 mg capsule 100 mg PO .TID 3 DAYS A WEEK 11/07/23 11/07/23 History Patient History Medical History End stage chronic kidney disease AV fistula R arm Limb alert care status R arm History of recent hospitalization d/c 09/09/22>per medical record, pt sent to ER at [facility] following dialysis for reddened sores on her buttocks. Admitting dx was enterococcus UTI, decubitus ulcer and sacral cellulitis. Difficult intravenous access Black stools Mobility impaired pt non compliant with hx pt treatments / PT IS IN WHEELCHAIR/TOTAL ASSIST Poor short term memory [place] (hard of hearing) COPD (chronic obstructive pulmonary disease) no medications for currently History of stroke 2019- pts spouse poor historian pt denies hx stroke History of anesthesia reaction "hard time waking up" Hx: recurrent pneumonia History of COVID- ? early 2021- mild congestion, no hospitalization, no current issues Non-ST elevation [place] (NSTEMI) pt spouse not sure/ mild ? remembers something mentioned in hx/ ? details ESRD (end stage renal disease) on dialysis tues, thur & sat ([place]) Aspiration pneumonia HX Morbid obesity Parkinson disease Rheumatoid arthritis ? current status/no meds for Chronic diastolic heart failure EF 50% on 01/2020 echo RACHEL (iron deficiency anemia) Subdural hematoma hx fall 2019 - tx to [facility]/no surgical intervention LBBB (left bundle branch block) RENÉ on CPAP Depression Meniere's disease Generalized anxiety disorder Dyslipidemia Restless leg syndrome Diabetes mellitus, type II hx / NO MEDS Hypothyroidism HTN (hypertension) Surgical History Hx of arteriovenostomy for renal dialysis right arm History of tubal ligation History of carpal tunnel surgery B/L History of orthopedic surgery " bilat heel surgery" H/O sinus surgery Hx of total knee arthroplasty B/L Family History Other AAA (abdominal aortic aneurysm) Diabetes Family history non-contributory Hypertension Myotonic dystrophy Social History Smoking Status: Former smoker Tobacco Type: Cigarettes Cigarettes Per Day: 0.25ppd; Smoking End Date: 20-25 years ago; Second Hand Exposure: No; Do You Dip or Chew Tobacco: No; Hx Alcohol Use: No Hx Substance Use: No Preferred Language: Iraqi Communication Ability: Effective Communication Ability Comment: pt sometimes has difficulty understanding things, is POA Kitchen Cleaner Required: No Beliefs That Will Affect Care: None marital status: Current Living Situation: Spouse Current Living Situation Comment: is caregiver, also uses [facility] home care Other Information That Helps Us Care for You: No Feels Safe at Home: Yes Safety Concerns: Feels Safe At This Time Assistive Devices: Glasses, Hearing Aid - Bilateral, Oxygen - at Night and Wheelchair Assistive Devices Comment: electric wheelchair Results & Data Vital Signs (Past 12 Hours) Vital Signs Temp Pulse Pulse Resp BP Pulse Ox O2 Del Method 01/22/23 08:00 64 01/22/23 08:00 Nasal Cannula 01/22/23 07:25 36.4 C L 71 18 107/65 94 Nasal Cannula 01/22/23 04:27 83 L Room Air 01/22/23 03:58 36.8 C 67 18 119/69 93 Nasal Cannula 01/21/23 23:27 37.1 C 75 18 132/58 L 94 Nasal Cannula 01/21/23 23:00 78 O2 Flow Rate 01/22/23 08:00 01/22/23 08:00 3 01/22/23 07:25 2.5 01/22/23 04:27 01/22/23 03:58 2.5 01/21/23 23:27 2 01/21/23 23:00 Laboratory Results Reviewed Diagnostic Findings Reviewed (3) Anemia Anemia type: unspecified type Qualified Code(s): D64.9 - Anemia, unspecified
[2023-01-22 11:04] LABS: Estimated Average Glucose 120 mg/dl; Hemoglobin A1C 5.8 % (4.5-5.6)
[2023-01-22 16:39] LABS: Base Excess VBG 7.5 mEq/L; HCO3 VBG 34 mmol/L; Oxygen Saturation VBG 65.9 %; PCO2 VBG 55 mmHg (38-50); PO2 VBG 40 mmHg
--- NOTE | 2023-01-22 16:42 | Hospitalist Progress Note ---
Date of Service January 22, 2023 Assessment & Plan (1) Rectal bleeding: (2) End stage chronic kidney disease: (3) Hemodialysis status: (4) Anemia: (5) Hypotension: (6) DM type 2 (diabetes mellitus, type 2): (7) Hypertension: (8) Parkinson disease: (9) LBBB (left bundle branch block): Plan This is a 77yo F with a PMH DM II, hypothyroidism, COPD, ESRD on hemodialysis, anemia, rheumatoid arthritis, h/o sacral ulcers, history of rectal bleeding 2/2 hemorrhoids and other medical problems listed below who presents from dialysis clinic with concern for rectal bleed. #Encephalopathy, c/f hypercapnia #RENÉ -Napping all day; confused when awakening, no CPAP at bedside -Bipap and VBG now -Nocturnal sleep study given reports of occasional "confusion" and "sleepiness" #Rectal bleed Previously admitted in September 2022 and underwent colonoscopy, which showed internal/external hemorrhoids Presented today hypotensive with SBP in 60s (improved to 110s, normal HR, BUN 63, Cr 9.59) Hgb today 8.4 (similar to September admission), but outpatient hgb closer to 10-11 over the last few months s/p 1 UPRBC 01/21 #Acute on Chronic Macrocytic anemia #Anemia of ESRD #RACHEL -Follows Dr. Lisa loyola "Hemorrhoids and diverticulosis found on colonoscopyalong with a serrated polyp which was removed. Thickened endometrium w benign path.She had UGI endoscopy in Apr that showed LA grade B esophagitis, erythema of gastric antrum, body, and duodenum, and with starting Protonix, a second scope in June showed resolution.VCE showing duodenitis." -Receives Venofer with HD -Trend H/H, ensure Heme/Onc follow up and Nephrology #ESRD (end stage renal disease) on dialysis Sent over from dialysis today for concern for rectal bleed (last complete dialysis Friday, [facility] schedule) Nephrology following #DM II Diet controlled, A1c of 5.3 in May 2022 Diabetic diet, loose SSI while admitted BSG AC HS #Chronic HFpEF #LBBB (left bundle branch block) Chronic, stable #Parkinson disease Continue Sinemet per home regimen #Hypothyroidism Stable, continue levothyroxine DVT Ppx: SCDs given bleed Code status: FULL CODE PCP: Kay Dispo: Admitted to PCU Admission and Anticipated Discharge Date Admission Date: January 21, 2023 Subjective NAEO No reported bleeding; napping on two visits; second visit patient with hearing aids and patient able to participate much more, but still seems confused (oriented to self) Review of Systems Review of Systems: All systems reviewed & are unremarkable except as noted in Subjective Physical Exam Constitutional: WD/WN, vitals as above Respiratory: normal respiratory effort, lungs clear to auscultation Cardiovascular: RRR, no murmur, no edema Results & Data Results & Data Vital Signs (Past 12 Hours) Vital Signs Temp Pulse Pulse Resp BP Pulse Ox O2 Del Method 01/22/23 16:08 36.5 C 70 18 109/55 L 95 Nasal Cannula 01/22/23 12:13 36.7 C 92 H 18 119/58 L 93 Nasal Cannula 01/22/23 08:00 64 01/22/23 08:00 Nasal Cannula 01/22/23 07:25 36.4 C L 71 18 107/65 94 Nasal Cannula O2 Flow Rate 01/22/23 16:08 3.0 01/22/23 12:13 2.5 01/22/23 08:00 01/22/23 08:00 3 01/22/23 07:25 2.5 Laboratory Results Short CBC 01/21/23 01/22/23 Range/Units 21:41 08:49 WBC 9.98 (4.8-10.8) K/ul Hgb 9.5 L 8.6 L (12.0-16.0) g/dl Hct 29.5 L 27.4 L (37.0-47.0) % Plt Count 210 (130-400) K/uL BMP 01/22/23 08:49 Sodium 139 Potassium 4.2 Chloride 100 Carbon Dioxide 32 BUN 25 H D Creatinine 6.03 H* D Glucose 108 H Calcium 9.1 Medications Administered Home Medications Medication Instructions Recorded Confirmed Last Taken aspirin 81 mg tablet,delayed 162 mg PO QAM 11/15/21 01/21/23 09/04/22 release atorvastatin 80 mg tablet 80 mg PO QPM 11/15/21 01/21/23 09/04/22 carbidopa 25 mg-levodopa 100 mg 1 tab PO TIDM 11/15/21 01/21/23 09/05/22 07:00 tablet docusate sodium 100 mg capsule 100 mg PO Q2D 11/15/21 01/21/23 09/04/22 (Colace) isosorbide mononitrate 30 mg 30 mg PO QPM 11/15/21 01/21/23 09/04/22 tablet,extended release 24 hr levothyroxine 125 mcg tablet 125 mcg PO QAM 11/15/21 01/21/23 09/04/22 lidocaine-prilocaine 2.5 %-2.5 % 1 applic topical DIRECTED PRN 1 11/15/21 01/21/23 09/05/22 topical cream HR PRIOR TO DIALYSIS pregabalin 100 mg capsule 100 mg PO .BID 4DAYSWEEK 11/15/21 01/21/23 09/04/22 sertraline 100 mg tablet 100 mg PO QPM 11/15/21 01/21/23 09/04/22 vitamin B complex-vitamin C-folic 1 tab PO QPM 04/16/22 01/21/23 09/04/22 acid 0.8 mg tablet (Nanci-Samuel) pantoprazole 20 mg tablet,delayed 20 mg PO BID 05/23/22 01/21/23 09/04/22 release acetaminophen 325 mg tablet 650 mg PO Q6H PRN Pain 09/05/22 01/21/23 Unknown (Tylenol) epinephrine 0.3 mg/0.3 mL 0.3 mg IM DIRECTED PRN Allergic 09/05/22 01/21/23 Unknown injection, auto-injector (EpiPen) Reaction hydrocortisone 2.5 % topical cream 1 applic [place] DAILY PRN Hemorrhoids 09/05/22 01/21/23 Unknown with perineal applicator meclizine 12.5 mg tablet 12.5 mg PO TID PRN Dizziness 09/05/22 01/21/23 Unknown melatonin 10 mg tablet 10 mg PO HS PRN Sleep 09/05/22 01/21/23 09/04/22 nystatin 100,000 unit/gram topical 1 applic EXT BID #30 grams 09/09/22 01/21/23 Unknown powder (Nystop) ferric citrate 210 mg iron tablet 420 mg PO TIDM 01/21/23 01/21/23 Unknown (Auryxia) fluticasone furoate 200 1 inh inhalation DAILY 01/21/23 01/21/23 Unknown mcg-vilanterol 25 mcg/dose inhalation powder (Breo Ellipta) lidocaine-prilocaine 2.5 %-2.5 % 1 applic topical DIRECTED 01/21/23 01/21/23 Unknown topical cream pregabalin 100 mg capsule 100 mg PO .TID 3 DAYS A WEEK 01/21/23 01/21/23 Unknown Active Medications Generic Name Dose Route Start Last Admin Trade Name Freq PRN Reason Stop Dose Admin Atorvastatin Calcium 80 mg 01/21/23 21:00 01/21/23 21:27 Atorvastatin 40 Mg Tab PO 02/20/23 20:59 80 mg QPM BAYRON Administration Carbidopa/Levodopa 1 tab 01/21/23 17:00 01/22/23 12:26 Carbidopa/Levodopa 25/100mg Tab PO 02/20/23 16:59 1 tab TIDM BAYRON Administration Docusate Sodium 100 mg 01/22/23 09:00 01/22/23 08:45 Docusate Sodium 100 Mg Cap PO 02/21/23 08:59 100 mg [id number] BAYRON Administration Fluticasone/Vilanterol 1 puffs 01/22/23 09:00 01/22/23 08:46 Fluticasone/Vilanterol 200/25mcg 14 Puffs/Inhaler INH 02/21/23 08:59 1 puffs DAILY BAYRON Administration Pantoprazole Sodium 40 mg/ 100 mls @ 20 mls/hr 01/21/23 15:00 01/22/23 12:27 Dextrose IV 02/20/23 14:44 8 mg/hr Q5H BAYRON 20 mls/hr Administration 8 MG/HR Isosorbide Mononitrate 30 mg 01/21/23 21:00 01/21/23 21:28 Isosorbide Woodson Extended Rel 30 Mg Tabcr PO 02/20/23 20:59 30 mg QPM BAYRON Administration Levothyroxine Sodium 125 mcg 01/22/23 06:30 01/22/23 06:26 Levothyroxine Sodium 125 Mcg Tablet PO 02/21/23 06:29 125 mcg DAILYBB BAYRON Administration Melatonin 9 mg 01/21/23 14:27 01/21/23 21:39 Melatonin 3 Mg Tab PO 02/20/23 14:26 9 mg HSZ PRN Administration Sleep Miscellaneous 1 each 01/21/23 16:00 01/22/23 15:59 Auryxia- Order Awaiting Action N/A 02/20/23 15:59 Not Given QS BAYRON Pregabalin 100 mg 01/22/23 09:00 01/22/23 08:48 Pregabalin 100 Mg Cap PO 02/21/23 08:59 100 mg [id number] BAYRON Administration Sertraline HCl 100 mg 01/21/23 21:00 01/21/23 21:28 Sertraline Hcl 100 Mg Tablet PO 02/20/23 20:59 100 mg QPM BAYRON Administration Vitamin B Complex/Folic Acid 1 cap 01/21/23 21:00 01/21/23 21:31 Nephrocaps PO 02/20/23 20:59 1 cap QPM BAYRON Administration (4) Anemia Anemia type: unspecified type Qualified Code(s): D64.9 - Anemia, unspecified (5) Hypotension Hypotension type: unspecified hypotension type Qualified Code(s): I95.9 - Hypotension, unspecified (7) Hypertension Hypertension type: essential hypertension Qualified Code(s): I10 - Essential (primary) hypertension
[2023-01-22] MEDS: ATORVASTATIN 40 MG TAB PO SCH (20:06)
[2023-01-22] MEDS: SERTRALINE HCL 100 MG TABLET PO SCH (20:06)
[2023-01-22] MEDS: NEPHROCAPS PO SCH (20:07)
[2023-01-22] MEDS: ISOSORBIDE MONO EXTENDED REL 30 MG TABCR PO SCH (20:08)
[2023-01-22] MEDS ORDERED: PANTOprazole 40 MG in DEXTROSE 5% MINI-B 100 ML IV SCH (21:00)
[2023-01-22] MEDS: PANTOprazole 40 MG in SYRINGE 0 ML IV SCH (22:08)
[2023-01-23 05:02] LABS: Hematocrit (blood only) 24.7 % (37.0-47.0); Hemoglobin 7.9 g/dl (12.0-16.0); Mean Corpuscular Hemoglobin 31.2 pg (25.0-34.0); Mean Corpuscular Volume 97.6 fL (80.0-100.0); Mean Platelet Volume 11.5 fL (9.4-12.4); Platelet Count 212 K/uL (130-400); RDW Coefficient of Variation 17.2 % (11.5-14.5); RDW Standard Deviation 59.3 fL (36.4-46.3); Red Blood Count 2.53 M/uL (4.20-5.40); White Blood Count 8.69 K/ul (4.8-10.8)
[2023-01-23 05:32] LABS: BUN Creatinine Ratio 4.8 (10-20); Calcium 9.1 mg/dl (8.6-10.3); Creatinine Clr Calc Pharmacy 6.9 ml/min; Est GFR (African American) 5.1 ml/min; Est GFR (Non-African American) 4.4 ml/min; Phosphorus 5.7 mg/dl (2.5-4.9); Potassium 4.2 mmol/L (3.5-5.1)
[2023-01-23] MEDS: LEVOTHYROXINE SODIUM 125 MCG TABLET PO SCH (06:50)
[2023-01-23] MEDS: INSULIN ASPART PER UNIT CHARGE SC SCH ×4 (08:33→20:33)
[2023-01-23] MEDS: FLUTICASONE/VILANTEROL 200/25MCG 14 PUFFS/INHALER INH SCH (08:35)
[2023-01-23] MEDS: PANTOprazole 40 MG in SYRINGE 0 ML IV SCH ×2 (08:35→20:13)
[2023-01-23] MEDS: CARBIDOPA/LEVODOPA 25/100MG TAB PO SCH ×3 (08:35→17:40)
[2023-01-23] MEDS ORDERED: MIDODRINE HCL 10 MG TAB PO ONE (09:15)
[2023-01-23] MEDS ORDERED: EPOETIN ALFA 20,000 UNITS/ML VIAL IV ONE (09:15)
[2023-01-23] MEDS ORDERED: EPOETIN ALFA 20,000 UNITS in SYRINGE 0 ML IV SCH (09:15)
--- NOTE | 2023-01-23 11:15 | Gastroenterology Progress Note ---
Date of Service January 23, 2023 Assessment & Plan (1) Anemia: (2) Dialysis patient: Plan This is a 77 y/o female w/ ESRD on dialysis, w/ anemia and chronic intermittent bleeding (unclear if from rectum/vagina), and recent endoscopic workup this year w/o source, but showed duodenitis/jejunitis, esophagitis wo bleeding, and diverticulosis, int/ext hemorrhoids. Hysteroscopy w thickened endometrium w benign path. Admitted after coming in with recurrent (? rectal) bleeding; of unclear source, but may be related to hemorrhoids. HGB not far from baseline; is 8.4 (baseline 8-9). She does have large hemorrhoids on exam. Today had an episode of moderate black stool, slightly drop in HGB, we are asked to re-see her for concern for GIB. Currently abd soft, nontender. VSS. I spoke with her Jeovany over he phone. She's has chronic ? bleeding with BRB, and tends to have dark stools at home. - Will plan EGD tomorrow to evaluate for source of black stool; though it should be noted pt is normally on iron at home; has not been getting here; which often leads to dark stools. She has known hemorrhoids which could be a source of her bright red bleeding that she has chronically and intermittently - NPO after midnight - Trend H/H - Transfuse PRN - Monitor and document GI output - Daily PPI - Avoid NSAIDs - Consider topical hemorrhoid cream, SITZ baths PRN Thank you for allowing us to participate in the care of this patient. Please call with any acute changes, questions or concerns. Please see addendum below with additional recommendation from my supervising physician. Admission and Anticipated Discharge Date Admission Date: January 21, 2023 Supervising Physician Co-Signing Physician Notes I performed a history and physical examination of the patient today, including specifically on physical exam - soft abdomen. I have discussed the patient's management with the advanced practitioner. Please refer to the nurse practitioner's note for the documented findings and plan of care. EGD tomorrow. Subjective We were asked to re-see the pt today for reported moderate size, mushy black stool this AM. No sticky, liquid stool. Hadn't had any since admission prior to this AM. HGB slightly down from baseline, is 7.9 today. She got dialyzed this AM. Floor nurse states she was AAOx 3 this AM; currently I saw her in dialysis and seemed somewhat lethargic, but still oriented; soft BPs - they were working on adjusting her meds. Tolerated her regular breakfast. No nausea, vomiting, abd pain, hematochezia. Review of Systems Review of Systems: All systems reviewed & are unremarkable except as noted in HPI & below Physical Exam Constitutional: well developed, well nourished and comfortable; no acute distress Neck: trachea midline Respiratory: normal respiratory effort, lungs clear to auscultation Cardiovascular: RRR, no murmur, no edema Gastrointestinal (Abdomen): normal bowel sounds, soft, nontender, no hepatosplenomegaly Inspection/Auscultation: abdomen not distended Skin: no rashes, warm and dry Psychiatric: Lethargic but arouses to voice, oriented to person, place, time Results & Data Vital Signs (Past 12 Hours) Vital Signs Temp Pulse Pulse Pulse Resp BP BP 01/23/23 11:00 56 L 95/47 L 01/23/23 10:30 60 87/54 L 01/23/23 10:00 58 L 101/45 L 01/23/23 09:45 61 100/48 L 01/23/23 08:57 36.6 C 61 01/23/23 08:00 60 01/23/23 08:00 01/23/23 07:11 36.6 C 58 L 16 116/54 L 01/23/23 03:57 36.8 C 86 22 138/78 01/23/23 03:00 63 17 01/23/23 00:27 36.7 C 89 20 140/68 Pulse Ox O2 Del Method O2 Flow Rate FiO2 01/23/23 11:00 01/23/23 10:30 01/23/23 10:00 01/23/23 09:45 01/23/23 08:57 01/23/23 08:00 01/23/23 08:00 Nasal Cannula 2 01/23/23 07:11 94 Nasal Cannula 2 01/23/23 03:57 96 BiPAP 01/23/23 03:00 93 30 01/23/23 00:27 96 BiPAP Laboratory Results 01/23/23 01/23/23 01/22/23 Range/Units 08:23 03:48 19:48 WBC 8.69 (4.8-10.8) K/ul RBC 2.53 L (4.20-5.40) M/uL Hgb 7.9 L (12.0-16.0) g/dl Hct 24.7 L (37.0-47.0) % MCV 97.6 (80.0-100.0) fL MCH 31.2 (25.0-34.0) pg MCHC 32.0 (32.0-36.0) g/dL RDW Std Deviation 59.3 H (36.4-46.3) fL RDW Coeff of Bhavin 17.2 H (11.5-14.5) % Plt Count 212 (130-400) K/uL MPV 11.5 (9.4-12.4) fL VBG pH (7.36-7.41) VBG pCO2 (38-50) mmHg VBG pO2 mmHg VBG HCO3 mmol/L VBG O2 Saturation % VBG Base Excess mEq/L Sodium 137 (136-145) mmol/L Potassium 4.2 (3.5-5.1) mmol/L Chloride 99 (98-107) mmol/L Carbon Dioxide 30 (21-32) mmol/L Anion Gap 8 (3-11) BUN 38 H (6-23) mg/dl Creatinine 7.99 H* D (0.6-1.2) mg/dl Est Cr Clr Drug Dosing 6.9 ml/min Est GFR ( Amer) 5.1 ml/min Est GFR (Non-Af Amer) 4.4 ml/min BUN/Creatinine Ratio 4.8 L (10-20) Glucose 94 (70-99(Fasting)) mg/dl POC Glucose 108 H 130 H (70-99) mg/dl Calcium 9.1 (8.6-10.3) mg/dl Phosphorus 5.7 H (2.5-4.9) mg/dl Magnesium 2.0 (1.7-2.4) mg/dl 01/22/23 01/22/23 Range/Units 16:33 16:27 WBC (4.8-10.8) K/ul RBC (4.20-5.40) M/uL Hgb (12.0-16.0) g/dl Hct (37.0-47.0) % MCV (80.0-100.0) fL MCH (25.0-34.0) pg MCHC (32.0-36.0) g/dL RDW Std Deviation (36.4-46.3) fL RDW Coeff of Bhavin (11.5-14.5) % Plt Count (130-400) K/uL MPV (9.4-12.4) fL VBG pH 7.40 (7.36-7.41) VBG pCO2 55 H (38-50) mmHg VBG pO2 40 mmHg VBG HCO3 34 mmol/L VBG O2 Saturation 65.9 % VBG Base Excess 7.5 mEq/L Sodium (136-145) mmol/L Potassium (3.5-5.1) mmol/L Chloride (98-107) mmol/L Carbon Dioxide (21-32) mmol/L Anion Gap (3-11) BUN (6-23) mg/dl Creatinine (0.6-1.2) mg/dl Est Cr Clr Drug Dosing ml/min Est GFR ( Amer) ml/min Est GFR (Non-Af Amer) ml/min BUN/Creatinine Ratio (10-20) Glucose (70-99(Fasting)) mg/dl POC Glucose 109 H (70-99) mg/dl Calcium (8.6-10.3) mg/dl Phosphorus (2.5-4.9) mg/dl Magnesium (1.7-2.4) mg/dl (1) Anemia Anemia type: unspecified type Qualified Code(s): D64.9 - Anemia, unspecified
--- NOTE | 2023-01-23 11:49 | Dialysis Progress Note ---
Date of Service January 23, 2023 Assessment & Plan Admission and Anticipated Discharge Date Admission Date: January 21, 2023 Subjective Assessment & Plan (1) Hemodialysis status: ESRD patient TTS schedule and she did receive dialysis as an inpatient. BP runs low making it hard to get Fluid off. 3hrs 2 k and take 500 off (2) Rectal bleeding: Acute on chronic possible rectal bleeding. Already been evaluated by gastroenterology and she did receive 1 unit of blood transfusion. No plan for endoscopy or colonoscopy at this point. (3) Anemia: S/p 1 unit PRBC. we are giving her 09020 unit each RX. but hgb dropped again to 7.9 S--seen in dialysis. BP and HR low but she feels fine. AVF and Qb fine Physical examination--- elderly white female who is not in any overt respiratory distress she is awake and alert but very sleepy and could not test orientation. Blood pressure low and HR 42 3L nasal cannula oxygen Mucous midline is moist neck is supple Chest bilateral decreased breath sound poor inspiratory effort limiting the quality of the exam CVS S1-S2 regular systolic murmur heard abdomen is soft nontender Extremities shows Trace edema Results & Data Vital Signs (Past 12 Hours) Vital Signs Temp Pulse Pulse Pulse Resp BP BP 01/23/23 11:00 56 L 95/47 L 01/23/23 10:30 60 87/54 L 01/23/23 10:00 58 L 101/45 L 01/23/23 09:45 61 100/48 L 01/23/23 08:57 36.6 C 61 01/23/23 08:00 60 01/23/23 08:00 01/23/23 07:11 36.6 C 58 L 16 116/54 L 01/23/23 03:57 36.8 C 86 22 138/78 01/23/23 03:00 63 17 01/23/23 00:27 36.7 C 89 20 140/68 Pulse Ox O2 Del Method O2 Flow Rate FiO2 01/23/23 11:00 01/23/23 10:30 01/23/23 10:00 01/23/23 09:45 01/23/23 08:57 01/23/23 08:00 01/23/23 08:00 Nasal Cannula 2 01/23/23 07:11 94 Nasal Cannula 2 01/23/23 03:57 96 BiPAP 01/23/23 03:00 93 30 01/23/23 00:27 96 BiPAP
--- NOTE | 2023-01-23 15:02 | Surgery Consultation ---
Date of Consultation January 23, 2023 Assessment & Plan (1) Rectal bleeding: melanotic stools hemorrhoids with no obvious bleeding; RX conservatively. She has minimal symptoms agree with endoscopy Present on Admission?: Yes History of Present Illness Attending Physician: Katherine Colmenares MD History of Present Illness This is a 77yo F with a PMH DM II, hypothyroidism, COPD, ESRD on hemodialysis, anemia, rheumatoid arthritis, h/o sacral ulcers, history of rectal bleeding. She has had endoscopic workup recently which failed to show source. Her Hgb has remained around 8. She was found to have blood in underwear at dialysis earlier and was sent to ED before she was dialyzed. The blood was described as dark c/w melena. No bright red blood. Is scheduled for EGD in AM. Allergies Allergy/AdvReac Type Severity Reaction Status Date / Time No Known Allergies Allergy Verified 09/11/22 09:39 Home Medications Medication Instructions Recorded Confirmed Type aspirin 81 mg tablet,delayed 162 mg PO QAM 11/15/21 01/21/23 History release atorvastatin 80 mg tablet 80 mg PO QPM 11/15/21 01/21/23 History carbidopa 25 mg-levodopa 100 mg 1 tab PO TIDM 11/15/21 01/21/23 History tablet docusate sodium 100 mg capsule 100 mg PO Q2D 11/15/21 01/21/23 History (Colace) isosorbide mononitrate 30 mg 30 mg PO QPM 11/15/21 01/21/23 History tablet,extended release 24 hr levothyroxine 125 mcg tablet 125 mcg PO QAM 11/15/21 01/21/23 History lidocaine-prilocaine 2.5 %-2.5 % 1 applic topical DIRECTED PRN 1 11/15/21 01/21/23 History topical cream HR PRIOR TO DIALYSIS pregabalin 100 mg capsule 100 mg PO .BID 4DAYSWEEK 11/15/21 01/21/23 History sertraline 100 mg tablet 100 mg PO QPM 11/15/21 01/21/23 History vitamin B complex-vitamin C-folic 1 tab PO QPM 04/16/22 01/21/23 History acid 0.8 mg tablet (Nanci-Samuel) pantoprazole 20 mg tablet,delayed 20 mg PO BID 05/23/22 01/21/23 History release acetaminophen 325 mg tablet 650 mg PO Q6H PRN Pain 09/05/22 01/21/23 History (Tylenol) epinephrine 0.3 mg/0.3 mL 0.3 mg IM DIRECTED PRN Allergic 09/05/22 01/21/23 History injection, auto-injector (EpiPen) Reaction hydrocortisone 2.5 % topical cream 1 applic [place] DAILY PRN Hemorrhoids 09/05/22 01/21/23 History with perineal applicator meclizine 12.5 mg tablet 12.5 mg PO TID PRN Dizziness 09/05/22 01/21/23 History melatonin 10 mg tablet 10 mg PO HS PRN Sleep 09/05/22 01/21/23 History nystatin 100,000 unit/gram topical 1 applic EXT BID #30 grams 09/09/22 01/21/23 Rx powder (Nystop) ferric citrate 210 mg iron tablet 420 mg PO TIDM 01/21/23 01/21/23 History (Auryxia) fluticasone furoate 200 1 inh inhalation DAILY 01/21/23 01/21/23 History mcg-vilanterol 25 mcg/dose inhalation powder (Breo Ellipta) lidocaine-prilocaine 2.5 %-2.5 % 1 applic topical DIRECTED 01/21/23 01/21/23 History topical cream pregabalin 100 mg capsule 100 mg PO .TID 3 DAYS A WEEK 01/21/23 01/21/23 History Patient History Medical History End stage chronic kidney disease AV fistula R arm Limb alert care status R arm History of recent hospitalization d/c 09/09/22>per medical record, pt sent to ER at [facility] following dialysis for reddened sores on her buttocks. Admitting dx was enterococcus UTI, decubitus ulcer and sacral cellulitis. Difficult intravenous access Black stools Mobility impaired pt non compliant with hx pt treatments / PT IS IN WHEELCHAIR/TOTAL ASSIST Poor short term memory [place] (hard of hearing) COPD (chronic obstructive pulmonary disease) no medications for currently History of stroke 2019- pts spouse poor historian pt denies hx stroke History of anesthesia reaction "hard time waking up" Hx: recurrent pneumonia History of COVID-19 ? early 2021- mild congestion, no hospitalization, no current issues Non-ST elevation MN (NSTEMI) pt spouse not sure/ mild ? remembers something mentioned in hx/ ? details ESRD (end stage renal disease) on dialysis tues, thur & sat ([place]) Aspiration pneumonia HX Morbid obesity Parkinson disease Rheumatoid arthritis ? current status/no meds for Chronic diastolic heart failure EF 50% on 01/2020 echo RACHEL (iron deficiency anemia) Subdural hematoma hx fall 2019 - tx to [facility]/no surgical intervention LBBB (left bundle branch block) RENÉ on CPAP Depression Meniere's disease Generalized anxiety disorder Dyslipidemia Restless leg syndrome Diabetes mellitus, type II hx / NO MEDS Hypothyroidism HTN (hypertension) Surgical History Hx of arteriovenostomy for renal dialysis right arm History of tubal ligation History of carpal tunnel surgery B/L History of orthopedic surgery " bilat heel surgery" H/O sinus surgery Hx of total knee arthroplasty B/L Family History Other AAA (abdominal aortic aneurysm) Diabetes Family history non-contributory Hypertension Myotonic dystrophy Social History Smoking Status: Former smoker Tobacco Type: Cigarettes Cigarettes Per Day: 0.25ppd; Smoking End Date: 20-25 years ago; Second Hand Exposure: No; Do You Dip or Chew Tobacco: No; Hx Alcohol Use: No Hx Substance Use: No Preferred Language: Danish Communication Ability: Effective Communication Ability Comment: pt sometimes has difficulty understanding things, 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: No Beliefs That Will Affect Care: None marital status: Current Living Situation: Spouse Current Living Situation Comment: is caregiver, also uses [facility] home care Other Information That Helps Us Care for You: No Feels Safe at Home: Yes Safety Concerns: Feels Safe At This Time Assistive Devices: Hospital Bed and Mechanical Lift Assistive Devices Comment: electric wheelchair Review of Systems Constitutional: no fever, no chills, no weakness and no anorexia Eyes: no problem reported Ear, Nose, Mouth, Throat: no problem reported Respiratory: no cough and no dyspnea Cardiovascular: no chest pain Gastrointestinal: + melena; no abdominal pain, no nausea a nd no vomiting Musculoskeletal: no back pain and no neck pain Integumentary: no rash and no lesions Neurologic: + generalized weakness; no localized wea kness Psychiatric: no behavioral changes Physical Exam Constitutional: WD/WN, vitals as above Eyes: PERRL, conjunctivae normal, anicteric sclerae ENMT: external ear and nose normal, oropharynx normal Neck: trachea midline Respiratory: normal respiratory effort, lungs clear to auscultation Cardiovascular: RRR, no murmur, no edema Gastrointestinal (Abdomen): Inspection/Auscultation: abdomen normal to inspection and normal bowel sounds; abdomen not distended Percussion/Palpation: abdomen soft; abdomen nontender Rectal Exam: + hemorrhoids (grade III/IV, no obvious bleeding; melanotic stool visible); no rectal fissure Musculoskeletal: Head/Neck/Chest: normocephalic and head atraumatic Skin: no rashes, warm and dry Psychiatric: Orientation: alert Results & Data Vital Signs (Past 12 Hours) Vital Signs Temp Pulse Pulse Pulse Resp BP BP 01/23/23 12:40 36.5 C 58 L 118/46 L 01/23/23 12:00 52 L 95/66 L 01/23/23 11:30 57 L 101/42 L 01/23/23 11:00 56 L 95/47 L 01/23/23 10:30 60 87/54 L 01/23/23 10:00 58 L 101/45 L 01/23/23 09:45 61 100/48 L 01/23/23 08:57 36.6 C 61 01/23/23 08:00 60 01/23/23 08:00 01/23/23 07:11 36.6 C 58 L 16 116/54 L 01/23/23 03:57 36.8 C 86 22 138/78 01/23/23 03:00 63 17 Pulse Ox O2 Del Method O2 Flow Rate FiO2 01/23/23 12:40 01/23/23 12:00 01/23/23 11:30 01/23/23 11:00 01/23/23 10:30 01/23/23 10:00 01/23/23 09:45 01/23/23 08:57 01/23/23 08:00 01/23/23 08:00 Nasal Cannula 2 01/23/23 07:11 94 Nasal Cannula 2 01/23/23 03:57 96 BiPAP 01/23/23 03:00 93 30
--- NOTE | 2023-01-23 15:13 | Hospitalist Progress Note ---
Date of Service January 23, 2023 Assessment & Plan (1) Rectal bleeding: (2) End stage chronic kidney disease: (3) Hemodialysis status: (4) Anemia: (5) Hypotension: (6) DM type 2 (diabetes mellitus, type 2): (7) Hypertension: (8) Parkinson disease: (9) LBBB (left bundle branch block): Plan Ms Hassan is a 77yo F with a PMH DM II, hypothyroidism, COPD, ESRD on hemodialysis, anemia, rheumatoid arthritis, h/o sacral ulcers, history of rectal bleeding 2/2 hemorrhoids and other medical problems listed below who presents from dialysis clinic with concern for rectal bleed. Patient's provides majority of history, noting multiple episodes of bright red blood, but more frequent dark, "difficult to clean" episodes of stool. General Surgery consulted to examine if any intervention warranted on hemorrhoids. GI reconsulted given melanotic stool and continued bleeding, noted by poor response to transfusion administered on 01/21. #Encephalopathy, c/f hypercapnia #RENÉ -Napping all day; confused when awakening, no CPAP at bedside -VBG normal, will continue CPAP at night and with nap -Nocturnal sleep study given reports of occasional "confusion" and "sleepiness" #Rectal bleed #Melanotic stool Previously admitted in September 2022 and underwent colonoscopy, which showed internal/external hemorrhoids Presented today hypotensive with SBP in 60s (improved to 110s, normal HR, BUN 63, Cr 9.59) Hgb today 8.4 (similar to September admission), but outpatient hgb closer to 10-11 over the last few months s/p 1 UPRBC 01/21 -Gen surg consult: no banding necessary, stable, CTM -GI reconsulted: Plan for EGD tomorrow, 01/23 NPO at midnight -Suppos hydrocortisone for hemorrhoids #Acute on Chronic Macrocytic anemia #Anemia of ESRD #RACHEL -Follows Dr. Lisa loyola "Hemorrhoids and diverticulosis found on colonoscopyalong with a serrated polyp which was removed. Thickened endometrium w benign path.She had UGI endoscopy in Apr that showed LA grade B esophagitis, erythema of gastric antrum, body, and duodenum, and with starting Protonix, a second scope in June showed resolution.VCE showing duodenitis." -Receives Venofer with HD -Trend H/H, ensure Heme/Onc follow up and Nephrology -EGD in am #ESRD (end stage renal disease) on dialysis Sent over from dialysis today for concern for rectal bleed (last complete dialysis Friday, [facility] schedule) Nephrology following #DM II Diet controlled, A1c of 5.3 in May 2022 Diabetic diet, loose SSI while admitted BSG AC HS #Chronic HFpEF #LBBB (left bundle branch block) Chronic, stable #Parkinson disease Continue Sinemet per home regimen #Hypothyroidism Stable, continue levothyroxine DVT Ppx: SCDs given bleed Code status: FULL CODE PCP: Kay Dispo: Admitted to PCU Admission and Anticipated Discharge Date Admission Date: January 21, 2023 Subjective NAEO Endorses feeling weak, but denies any chest pain, notable bleeding or other con cerning symptoms. Reports of "black" and "loose" stool this am from nursing Review of Systems Review of Systems: All systems reviewed & are unremarkable except as noted in Subjective Physical Exam Constitutional: initially disoriented, better responsiveness after hearing aids placed Respiratory: normal respiratory effort, lungs clear to auscultation Gastrointestinal (Abdomen): soft abdomen, BS+ Results & Data Results & Data Vital Signs (Past 12 Hours) Vital Signs Temp Pulse Pulse Pulse Resp BP BP 01/23/23 14:52 36.6 C 65 18 133/55 L 01/23/23 12:40 36.5 C 58 L 118/46 L 01/23/23 12:00 52 L 95/66 L 01/23/23 11:30 57 L 101/42 L 01/23/23 11:00 56 L 95/47 L 01/23/23 10:30 60 87/54 L 01/23/23 10:00 58 L 101/45 L 01/23/23 09:45 61 100/48 L 01/23/23 08:57 36.6 C 61 01/23/23 08:00 60 01/23/23 08:00 01/23/23 07:11 36.6 C 58 L 16 116/54 L 01/23/23 03:57 36.8 C 86 22 138/78 Pulse Ox O2 Del Method O2 Flow Rate 01/23/23 14:52 83 L Nasal Cannula 3 01/23/23 12:40 01/23/23 12:00 01/23/23 11:30 01/23/23 11:00 01/23/23 10:30 01/23/23 10:00 01/23/23 09:45 01/23/23 08:57 01/23/23 08:00 01/23/23 08:00 Nasal Cannula 2 01/23/23 07:11 94 Nasal Cannula 2 01/23/23 03:57 96 BiPAP Laboratory Results Short CBC 01/23/23 Range/Units 03:48 WBC 8.69 (4.8-10.8) K/ul Hgb 7.9 L (12.0-16.0) g/dl Hct 24.7 L (37.0-47.0) % Plt Count 212 (130-400) K/uL BMP 01/23/23 03:48 Sodium 137 Potassium 4.2 Chloride 99 Carbon Dioxide 30 BUN 38 H Creatinine 7.99 H* D Glucose 94 Calcium 9.1 Medications Administered Home Medications Medication Instructions Recorded Confirmed Last Taken aspirin 81 mg tablet,delayed 162 mg PO QAM 11/15/21 01/21/23 09/04/22 release atorvastatin 80 mg tablet 80 mg PO QPM 11/15/21 01/21/23 09/04/22 carbidopa 25 mg-levodopa 100 mg 1 tab PO TIDM 11/15/21 01/21/23 09/05/22 07:00 tablet docusate sodium 100 mg capsule 100 mg PO Q2D 11/15/21 01/21/23 09/04/22 (Colace) isosorbide mononitrate 30 mg 30 mg PO QPM 11/15/21 01/21/23 09/04/22 tablet,extended release 24 hr levothyroxine 125 mcg tablet 125 mcg PO QAM 11/15/21 01/21/23 09/04/22 lidocaine-prilocaine 2.5 %-2.5 % 1 applic topical DIRECTED PRN 1 11/15/21 01/21/23 09/05/22 topical cream HR PRIOR TO DIALYSIS pregabalin 100 mg capsule 100 mg PO .BID 4DAYSWEEK 11/15/21 01/21/23 09/04/22 sertraline 100 mg tablet 100 mg PO QPM 11/15/21 01/21/23 09/04/22 vitamin B complex-vitamin C-folic 1 tab PO QPM 04/16/22 01/21/23 09/04/22 acid 0.8 mg tablet (Nanci-Samuel) pantoprazole 20 mg tablet,delayed 20 mg PO BID 05/23/22 01/21/23 09/04/22 release acetaminophen 325 mg tablet 650 mg PO Q6H PRN Pain 09/05/22 01/21/23 Unknown (Tylenol) epinephrine 0.3 mg/0.3 mL 0.3 mg IM DIRECTED PRN Allergic 09/05/22 01/21/23 Unknown injection, auto-injector (EpiPen) Reaction hydrocortisone 2.5 % topical cream 1 applic HI DAILY PRN Hemorrhoids 09/05/22 01/21/23 Unknown with perineal applicator meclizine 12.5 mg tablet 12.5 mg PO TID PRN Dizziness 09/05/22 01/21/23 Unknown melatonin 10 mg tablet 10 mg PO HS PRN Sleep 09/05/22 01/21/23 09/04/22 nystatin 100,000 unit/gram topical 1 applic EXT BID #30 grams 09/09/22 01/21/23 Unknown powder (Nystop) ferric citrate 210 mg iron tablet 420 mg PO TIDM 01/21/23 01/21/23 Unknown (Auryxia) fluticasone furoate 200 1 inh inhalation DAILY 01/21/23 01/21/23 Unknown mcg-vilanterol 25 mcg/dose inhalation powder (Breo Ellipta) lidocaine-prilocaine 2.5 %-2.5 % 1 applic topical DIRECTED 01/21/23 01/21/23 Unknown topical cream pregabalin 100 mg capsule 100 mg PO .TID 3 DAYS A WEEK 01/21/23 01/21/23 Unknown Active Medications Generic Name Dose Route Start Last Admin Trade Name Rahulq PRN Reason Stop Dose Admin Atorvastatin Calcium 80 mg 01/21/23 21:00 01/22/23 20:06 Atorvastatin 40 Mg Tab PO 02/20/23 20:59 80 mg QPM BAYRON Administration Carbidopa/Levodopa 1 tab 01/21/23 17:00 01/23/23 13:31 Carbidopa/Levodopa 25/100mg Tab PO 02/20/23 16:59 1 tab TIDM BAYRON Administration Docusate Sodium 100 mg 01/22/23 09:00 01/22/23 08:45 Docusate Sodium 100 Mg Cap PO 02/21/23 08:59 100 mg [email or web address] BAYRON Administration Fluticasone/Vilanterol 1 puffs 01/22/23 09:00 01/23/23 08:35 Fluticasone/Vilanterol 200/25mcg 14 Puffs/Inhaler INH 02/21/23 08:59 1 puffs DAILY BAYRON Administration Pantoprazole Sodium 40 mg/ 10 mls @ 5 mls/min 01/22/23 21:00 01/23/23 08:35 Syringe IV 02/21/23 20:59 5 mls/min BID@0900,2100 BAYRON Administration Insulin Aspart 0 units 01/22/23 16:30 01/23/23 13:22 Insulin Aspart Per Unit Charge SC 02/21/23 05:59 Not Given ACHS BAYRON Isosorbide Mononitrate 30 mg 01/21/23 21:00 01/22/23 20:08 Isosorbide Sac Extended Rel 30 Mg Tabcr PO 02/20/23 20:59 30 mg QPM BAYRON Administration Levothyroxine Sodium 125 mcg 01/22/23 06:30 01/23/23 06:50 Levothyroxine Sodium 125 Mcg Tablet PO 02/21/23 06:29 125 mcg DAILYBB BAYRON Administration Melatonin 9 mg 01/21/23 14:27 01/21/23 21:39 Melatonin 3 Mg Tab PO 02/20/23 14:26 9 mg HSZ PRN Administration Sleep Pregabalin 100 mg 01/23/23 09:00 01/22/23 22:09 Pregabalin 100 Mg Cap PO 02/22/23 08:59 100 mg [email or web address] BAYRON Administration Pregabalin 100 mg 01/22/23 09:00 01/22/23 22:15 Pregabalin 100 Mg Cap PO 02/21/23 08:59 100 mg [id number]@0900,2100 BAYRON Administration Sertraline HCl 100 mg 01/21/23 21:00 01/22/23 20:06 Sertraline Hcl 100 Mg Tablet PO 02/20/23 20:59 100 mg QPM BAYRON Administration Vitamin B Complex/Folic Acid 1 cap 01/21/23 21:00 01/22/23 20:07 Nephrocaps PO 02/20/23 20:59 1 cap QPM BAYRON Administration (4) Anemia Anemia type: unspecified type Qualified Code(s): D64.9 - Anemia, unspecified (5) Hypotension Hypotension type: unspecified hypotension type Qualified Code(s): I95.9 - Hypotension, unspecified (7) Hypertension Hypertension type: essential hypertension Qualified Code(s): I10 - Essential (primary) hypertension
[2023-01-23] MEDS ORDERED: FERRIC CITRATE 210 MG TAB PO SCH (17:00)
[2023-01-23] MEDS: FERRIC CITRATE 210 MG TAB PO SCH (17:40)
[2023-01-23] MEDS: HYDROCORTISONE ACETATE 25 MG SUPP PR SCH (20:13)
[2023-01-23] MEDS: ATORVASTATIN 40 MG TAB PO SCH (20:14)
[2023-01-23] MEDS: ISOSORBIDE MONO EXTENDED REL 30 MG TABCR PO SCH (20:15)
[2023-01-23] MEDS: SERTRALINE HCL 100 MG TABLET PO SCH (20:15)
[2023-01-23] MEDS: NEPHROCAPS PO SCH (20:15)
[2023-01-23] MEDS: MELATONIN 3 MG TAB PO PRN (20:30)
[2023-01-24] MEDS: LEVOTHYROXINE SODIUM 125 MCG TABLET PO SCH (05:33)
[2023-01-24 06:45] LABS: Hematocrit (blood only) 25.6 % (37.0-47.0); Hemoglobin 8.1 g/dl (12.0-16.0); Mean Corpuscular Hgb Conc 31.6 g/dL (32.0-36.0); Mean Corpuscular Volume 98.1 fL (80.0-100.0); Mean Platelet Volume 11.4 fL (9.4-12.4); Nucleated RBC # (auto) 0.06 K/uL (0.00-0.12); Nucleated RBC % (auto) 0.7 %; Platelet Count 219 K/uL (130-400); RDW Coefficient of Variation 17.1 % (11.5-14.5); RDW Standard Deviation 59.3 fL (36.4-46.3); Red Blood Count 2.61 M/uL (4.20-5.40); White Blood Count 9.07 K/ul (4.8-10.8)
[2023-01-24 07:52] LABS: Calcium 9.3 mg/dl (8.6-10.3); Creatinine Clr Calc Pharmacy 9.3 ml/min; Est GFR (African American) 7.4 ml/min; Est GFR (Non-African American) 6.3 ml/min; Magnesium 1.9 mg/dl (1.7-2.4); Phosphorus 4.1 mg/dl (2.5-4.9); Potassium 3.8 mmol/L (3.5-5.1)
--- NOTE | 2023-01-24 08:34 | Anesthesiology Consultation ---
Date of Service January 24, 2023 Assessment & Plan Chart Review Chart Review: Acceptable Risk for Surgery, Patient NOT seen in Pre Admission Testing and medical data entry clerk initiated Consults Requested none Proposed Anesthesia Anesthesia Type: MAC History Surgery Operation Date: 01/24/23 16:30 Proposed Procedures p Esophagogastroduodenoscopy Dr Davila - Luis Fernando Davila MD Height/Weight Height: 5 ft 2 in Weight: 106.7 kg Allergies Allergy/AdvReac Type Severity Reaction Status Date / Time No Known Allergies Allergy Verified 09/11/22 09:39 Medications Home Medications Medication Instructions Recorded Confirmed Last Taken aspirin 81 mg tablet,delayed 162 mg PO QAM 11/15/21 01/21/23 09/04/22 release atorvastatin 80 mg tablet 80 mg PO QPM 11/15/21 01/21/23 09/04/22 carbidopa 25 mg-levodopa 100 mg 1 tab PO TIDM 11/15/21 01/21/23 09/05/22 07:00 tablet docusate sodium 100 mg capsule 100 mg PO Q2D 11/15/21 01/21/23 09/04/22 (Colace) isosorbide mononitrate 30 mg 30 mg PO QPM 11/15/21 01/21/23 09/04/22 tablet,extended release 24 hr levothyroxine 125 mcg tablet 125 mcg PO QAM 11/15/21 01/21/23 09/04/22 lidocaine-prilocaine 2.5 %-2.5 % 1 applic topical DIRECTED PRN 1 11/15/21 01/21/23 09/05/22 topical cream HR PRIOR TO DIALYSIS pregabalin 100 mg capsule 100 mg PO .BID 4DAYSWEEK 11/15/21 01/21/23 09/04/22 sertraline 100 mg tablet 100 mg PO QPM 11/15/21 01/21/23 09/04/22 vitamin B complex-vitamin C-folic 1 tab PO QPM 04/16/22 01/21/23 09/04/22 acid 0.8 mg tablet (Nanci-Samuel) pantoprazole 20 mg tablet,delayed 20 mg PO BID 05/23/22 01/21/23 09/04/22 release acetaminophen 325 mg tablet 650 mg PO Q6H PRN Pain 09/05/22 01/21/23 Unknown (Tylenol) epinephrine 0.3 mg/0.3 mL 0.3 mg IM DIRECTED PRN Allergic 09/05/22 01/21/23 Unknown injection, auto-injector (EpiPen) Reaction hydrocortisone 2.5 % topical cream 1 applic HI DAILY PRN Hemorrhoids 09/05/22 01/21/23 Unknown with perineal applicator meclizine 12.5 mg tablet 12.5 mg PO TID PRN Dizziness 09/05/22 01/21/23 Unknown melatonin 10 mg tablet 10 mg PO HS PRN Sleep 09/05/22 01/21/23 09/04/22 nystatin 100,000 unit/gram topical 1 applic EXT BID #30 grams 09/09/22 01/21/23 Unknown powder (Nystop) ferric citrate 210 mg iron tablet 420 mg PO TIDM 01/21/23 01/21/23 Unknown (Auryxia) fluticasone furoate 200 1 inh inhalation DAILY 01/21/23 01/21/23 Unknown mcg-vilanterol 25 mcg/dose inhalation powder (Breo Ellipta) lidocaine-prilocaine 2.5 %-2.5 % 1 applic topical DIRECTED 01/21/23 01/21/23 Unknown topical cream pregabalin 100 mg capsule 100 mg PO .TID 3 DAYS A WEEK 01/21/23 01/21/23 Unknown Active Medications Generic Name Dose Route Start Last Admin Trade Name Rahulq PRN Reason Stop Dose Admin Atorvastatin Calcium 80 mg 01/21/23 21:00 01/23/23 20:14 Atorvastatin 40 Mg Tab PO 02/20/23 20:59 80 mg QPM BAYRON Administration Carbidopa/Levodopa 1 tab 01/21/23 17:00 01/23/23 17:40 Carbidopa/Levodopa 25/100mg Tab PO 02/20/23 16:59 1 tab TIDM BAYRON Administration Docusate Sodium 100 mg 01/22/23 09:00 01/22/23 08:45 Docusate Sodium 100 Mg Cap PO 02/21/23 08:59 100 mg [email or web address] BAYRON Administration Ferric Citrate 420 mg 01/23/23 17:00 01/23/23 17:40 Ferric Citrate 210 Mg Tab PO 02/22/23 16:59 420 mg TIDM BAYRON Administration Fluticasone/Vilanterol 1 puffs 01/22/23 09:00 01/23/23 08:35 Fluticasone/Vilanterol 200/25mcg 14 Puffs/Inhaler INH 02/21/23 08:59 1 puffs DAILY BAYRON Administration Hydrocortisone 25 mg 01/23/23 15:30 01/23/23 20:13 Hydrocortisone Acetate 25 Mg Supp HI 02/22/23 15:29 25 mg DAILY BAYRON Administration Pantoprazole Sodium 40 mg/ 10 mls @ 5 mls/min 01/22/23 21:00 01/23/23 20:13 Syringe IV 02/21/23 20:59 5 mls/min BID@0900,2100 BAYRON Administration Insulin Aspart 0 units 01/22/23 16:30 01/23/23 20:33 Insulin Aspart Per Unit Charge SC 02/21/23 05:59 Not Given ACHS BAYRON Isosorbide Mononitrate 30 mg 01/21/23 21:00 01/23/23 20:15 Isosorbide Collier Extended Rel 30 Mg Tabcr PO 02/20/23 20:59 30 mg QPM BAYRON Administration Levothyroxine Sodium 125 mcg 01/22/23 06:30 01/24/23 05:33 Levothyroxine Sodium 125 Mcg Tablet PO 02/21/23 06:29 125 mcg DAILYBB BAYRON Administration Melatonin 9 mg 01/21/23 14:27 01/23/23 20:30 Melatonin 3 Mg Tab PO 02/20/23 14:26 9 mg HSZ PRN Administration Sleep Pregabalin 100 mg 01/23/23 09:00 01/22/23 22:09 Pregabalin 100 Mg Cap PO 02/22/23 08:59 100 mg [email or web address]@0900 BAYRON Administration Pregabalin 100 mg 01/22/23 09:00 01/22/23 22:15 Pregabalin 100 Mg Cap PO 02/21/23 08:59 100 mg [id number]@0900,2100 BAYRON Administration Sertraline HCl 100 mg 01/21/23 21:00 01/23/23 20:15 Sertraline Hcl 100 Mg Tablet PO 02/20/23 20:59 100 mg QPM BAYRON Administration Vitamin B Complex/Folic Acid 1 cap 01/21/23 21:00 01/23/23 20:15 Nephrocaps PO 02/20/23 20:59 1 cap QPM BAYRON Administration Past Medical History Medical History End stage chronic kidney disease AV fistula R arm Limb alert care status R arm History of recent hospitalization d/c 09/09/22>per medical record, pt sent to ER at [facility] following dialysis for reddened sores on her buttocks. Admitting dx was enterococcus UTI, decubitus ulcer and sacral cellulitis. Difficult intravenous access Black stools Mobility impaired pt non compliant with hx pt treatments / PT IS IN WHEELCHAIR/TOTAL ASSIST Poor short term memory COMANCHE (hard of hearing) COPD (chronic obstructive pulmonary disease) no medications for currently History of stroke 2019- pts spouse poor historian pt denies hx stroke History of anesthesia reaction "hard time waking up" Hx: recurrent pneumonia History of COVID-19 ? early 2021- mild congestion, no hospitalization, no current issues Non-ST elevation PA (NSTEMI) pt spouse not sure/ mild ? remembers something mentioned in hx/ ? details ESRD (end stage renal disease) on dialysis tues, thur & sat ([place]) Aspiration pneumonia HX Morbid obesity Parkinson disease Rheumatoid arthritis ? current status/no meds for Chronic diastolic heart failure EF 50% on 01/2020 echo RACHEL (iron deficiency anemia) Subdural hematoma hx fall 2019 - tx to [facility]/no surgical intervention LBBB (left bundle branch block) RENÉ on CPAP Depression Meniere's disease Generalized anxiety disorder Dyslipidemia Restless leg syndrome Diabetes mellitus, type II hx / NO MEDS Hypothyroidism HTN (hypertension) Past Family History Family History Other AAA (abdominal aortic aneurysm) Diabetes Family history non-contributory Hypertension Myotonic dystrophy Past Surgical History Surgical History Hx of arteriovenostomy for renal dialysis right arm History of tubal ligation History of carpal tunnel surgery B/L History of orthopedic surgery " bilat heel surgery" H/O sinus surgery Hx of total knee arthroplasty B/L Social History Smoking Status: Former smoker tobacco type: cigarettes Smoking cigarettes per day: 0.25ppd Do You Dip or Chew Tobacco: No Smoking End Date: 20-25 years ago Hx Alcohol Use: No alcohol intake frequency: other Hx Substance Use: No substance use type: does not use Physical Exam Vital Signs Last Vital Signs Temp 36.9 C 01/24/23 07:00 Pulse 65 01/24/23 07:00 Resp 22 01/24/23 07:00 BP 124/74 01/24/23 07:00 Pulse Ox 93 01/24/23 07:00 O2 Del Method Nasal Cannula 01/24/23 07:00 O2 Flow Rate 3 01/24/23 07:00 FiO2 30 01/24/23 02:59 Testing Laboratory Results 01/24/23 05:31 01/24/23 05:31 PT 10.1 Seconds (9.0-12.0) 01/21/23 10: INR 0.9 (0.9-1.1) 01/21/23 10:22 APTT 26.0 Seconds (21.0-31.0) 01/21/23 10:22 Hemoglobin A1c 5.8 % (4.5-5.6) H 01/21/23 10:22 Blood Type O Positive 01/21/23 10:22 Antibody Screen NEGATIVE 01/21/23 10:22 01/24/23 08:14 POC Glucose 100 H Electrocardiogram Date: 01/21/23 DICTATED BY: Angel Lopez MD Test Reason : Blood Pressure : / mmHG Vent. Rate : 058 BPM Atrial Rate : 058 BPM P-R Int : 164 ms QRS Dur : 146 ms QT Int : 504 ms P-R-T Axes : 035 048 073 degrees QTc Int : 494 ms Sinus bradycardia with occasional Premature ventricular complexes Left bundle branch block Abnormal ECG When compared with ECG of 20-SEP-2022 07:57, Premature ventricular complexes are now Present Nonspecific T wave abnormality now evident in Lateral leads Confirmed by Angel Lopez ([id number]) on 01/21/2023 1:52:02 PM Chest X-Ray Date: 01/21/23 HISTORY: 77 years-old Female sob acute shortness of breath COMPARISON: 09/05/2022 TECHNIQUE: AP view of the chest FINDINGS: Cardiac silhouette is enlarged. Atherosclerosis of the aorta. Pulmonary vascular congestion. No pneumothorax, large pleural effusion or lobar airspace consolidation. Bones appear grossly intact. IMPRESSION: Cardiomegaly with pulmonary vascular congestion. Echocardiogram Date: 01/21/20 EF: 50% LV Function: normal (Borderline reduced) RWMA: + none Other Findings: + diastolic dysfunction (grade 1) Valvular Disease: + pertinent finding (mild TR)
[2023-01-24] MEDS: INSULIN ASPART PER UNIT CHARGE SC SCH ×4 (08:53→20:16)
[2023-01-24] MEDS: PREGABALIN 100 MG CAP PO SCH ×2 (08:57→20:16)
[2023-01-24] MEDS: PANTOprazole 40 MG in SYRINGE 0 ML IV SCH ×2 (08:57→20:14)
[2023-01-24] MEDS: CARBIDOPA/LEVODOPA 25/100MG TAB PO SCH ×3 (08:58→17:22)
[2023-01-24] MEDS: FERRIC CITRATE 210 MG TAB PO SCH ×3 (08:59→17:22)
[2023-01-24] MEDS: FLUTICASONE/VILANTEROL 200/25MCG 14 PUFFS/INHALER INH SCH (08:59)
[2023-01-24] MEDS: DOCUSATE SODIUM 100 MG CAP PO SCH (09:04)
--- NOTE | 2023-01-24 11:37 | History & Physical Bridge Note ---
Date of Service January 24, 2023 History & Physical Bridge Note I have examined the patient, reviewed the History & Physical and in the interval since the performance of the History & Physical I have noted the following changes of clinical significance: no changes noted
[2023-01-24] MEDS ORDERED: PROPOFOL IV EMULSION 10 MG/ML 20 ML VIAL IV ONE (11:50)
[2023-01-24] MEDS ORDERED: LIDOCAINE 2% 2 ML VIAL/AMP(20MG/ML) INFIL ONE (12:01)
--- NOTE | 2023-01-24 12:35 | Hospitalist Progress Note ---
Date of Service January 24, 2023 Assessment & Plan (1) Rectal bleeding: (2) End stage chronic kidney disease: (3) Hemodialysis status: (4) Anemia: (5) Hypotension: (6) DM type 2 (diabetes mellitus, type 2): (7) Hypertension: (8) Parkinson disease: (9) LBBB (left bundle branch block): Plan Ms Hassan is a 77yo F with a PMH DM II, hypothyroidism, COPD, ESRD on hemodialysis, anemia, rheumatoid arthritis, h/o sacral ulcers, history of rectal bleeding 2/2 hemorrhoids and other medical problems listed below who presents from dialysis clinic with concern for rectal bleed. Patient's provides majority of history, noting multiple episodes of bright red blood, but more frequent dark, "difficult to clean" episodes of stool. General Surgery consulted to examine if any intervention warranted on hemorrhoids. GI reconsulted given melanotic stool and continued bleeding, noted by poor response to transfusion administered on 01/21. Patient undergoing EGD today. Contingent on EGD, patient will likely be stable for discharge if no further interventions warranted pending approval from facility. #Encephalopathy, c/f hypercapnia *improving #RENÉ -Napping all day; confused when awakening, no CPAP at bedside -VBG normal, will continue CPAP at night and with nap -Nocturnal sleep study given reports of occasional "confusion" and "sleepiness" #Rectal bleed #Melanotic stool Previously admitted in September 2022 and underwent colonoscopy, which showed internal/external hemorrhoids Presented today hypotensive with SBP in 60s (improved to 110s, normal HR, BUN 63, Cr 9.59) Hgb today 8.4 (similar to September admission), but outpatient hgb closer to 10-11 over the last few months s/p 1 [facility] 01/21 -Gen surg consult: no banding necessary, stable, CTM -GI reconsulted: Follow up post EGD for management and dispo planning -Suppos hydrocortisone for hemorrhoids #Acute on Chronic Macrocytic anemia #Anemia of ESRD #RACHEL -Follows Dr. Lisa loyola "Hemorrhoids and diverticulosis found on colonoscopyalong with a serrated polyp which was removed. Thickened endometrium w benign path.She had UGI endoscopy in Apr that showed LA grade B esophagitis, erythema of gastric antrum, body, and duodenum, and with starting Protonix, a second scope in June showed resolution.VCE showing duodenitis." -Receives Venofer with HD -Trend H/H, ensure Heme/Onc follow up and Nephrology -EGD pending #ESRD (end stage renal disease) on dialysis Sent over from dialysis today for concern for rectal bleed (last complete dialysis Friday, [facility] schedule) Nephrology following #DM II Diet controlled, A1c of 5.3 in May 2022 Diabetic diet, loose SSI while admitted BSG AC HS #Chronic HFpEF #LBBB (left bundle branch block) Chronic, stable #Parkinson disease Continue Sinemet per home regimen #Hypothyroidism Stable, continue levothyroxine DVT Ppx: SCDs given bleed Code status: FULL CODE PCP: Kay Dispo: Admitted to PCU Admission and Anticipated Discharge Date Admission Date: January 21, 2023 Results & Data Results & Data Vital Signs (Past 12 Hours) Vital Signs Temp Pulse Pulse Pulse Resp BP Pulse Ox 01/24/23 12:19 65 16 107/47 L 93 01/24/23 12:03 63 16 106/44 L 92 01/24/23 10:54 37 C 65 18 112/55 L 92 01/24/23 08:00 71 01/24/23 08:00 01/24/23 07:00 36.9 C 65 22 124/74 93 01/24/23 03:18 36.3 C L 68 18 158/64 H 93 01/24/23 02:59 61 23 94 01/24/23 01:00 70 O2 Del Method O2 Flow Rate FiO2 01/24/23 12:19 Nasal Cannula 3 01/24/23 12:03 Nasal Cannula 3 01/24/23 10:54 Nasal Cannula 3 01/24/23 08:00 01/24/23 08:00 Nasal Cannula 3 01/24/23 07:00 Nasal Cannula 3 01/24/23 03:18 BiPAP 01/24/23 02:59 30 01/24/23 01:00 Laboratory Results Short CBC 01/24/23 Range/Units 05:31 WBC 9.07 (4.8-10.8) K/ul Hgb 8.1 L (12.0-16.0) g/dl Hct 25.6 L (37.0-47.0) % Plt Count 219 (130-400) K/uL BMP 01/24/23 05:31 Sodium 139 Potassium 3.8 Chloride 101 Carbon Dioxide 30 BUN 24 H Creatinine 5.94 H* D Glucose 94 Calcium 9.3 Medications Administered Home Medications Medication Instructions Recorded Confirmed Last Taken aspirin 81 mg tablet,delayed 162 mg PO QAM 11/15/21 01/21/23 09/04/22 release atorvastatin 80 mg tablet 80 mg PO QPM 11/15/21 01/21/23 09/04/22 carbidopa 25 mg-levodopa 100 mg 1 tab PO TIDM 11/15/21 01/21/23 09/05/22 07:00 tablet docusate sodium 100 mg capsule 100 mg PO Q2D 11/15/21 01/21/23 09/04/22 (Colace) isosorbide mononitrate 30 mg 30 mg PO QPM 11/15/21 01/21/23 09/04/22 tablet,extended release 24 hr levothyroxine 125 mcg tablet 125 mcg PO QAM 11/15/21 01/21/23 09/04/22 lidocaine-prilocaine 2.5 %-2.5 % 1 applic topical DIRECTED PRN 1 11/15/21 01/21/23 09/05/22 topical cream HR PRIOR TO DIALYSIS pregabalin 100 mg capsule 100 mg PO .BID 4DAYSWEEK 11/15/21 01/21/23 09/04/22 sertraline 100 mg tablet 100 mg PO QPM 11/15/21 01/21/23 09/04/22 vitamin B complex-vitamin C-folic 1 tab PO QPM 04/16/22 01/21/23 09/04/22 acid 0.8 mg tablet (Nanci-Samuel) pantoprazole 20 mg tablet,delayed 20 mg PO BID 05/23/22 01/21/23 09/04/22 release acetaminophen 325 mg tablet 650 mg PO Q6H PRN Pain 09/05/22 01/21/23 Unknown (Tylenol) epinephrine 0.3 mg/0.3 mL 0.3 mg IM DIRECTED PRN Allergic 09/05/22 01/21/23 Unknown injection, auto-injector (EpiPen) Reaction hydrocortisone 2.5 % topical cream 1 applic HI DAILY PRN Hemorrhoids 09/05/22 01/21/23 Unknown with perineal applicator meclizine 12.5 mg tablet 12.5 mg PO TID PRN Dizziness 09/05/22 01/21/23 Unknown melatonin 10 mg tablet 10 mg PO HS PRN Sleep 09/05/22 01/21/23 09/04/22 nystatin 100,000 unit/gram topical 1 applic EXT BID #30 grams 09/09/22 01/21/23 Unknown powder (Nystop) ferric citrate 210 mg iron tablet 420 mg PO TIDM 01/21/23 01/21/23 Unknown (Auryxia) fluticasone furoate 200 1 inh inhalation DAILY 01/21/23 01/21/23 Unknown mcg-vilanterol 25 mcg/dose inhalation powder (Breo Ellipta) lidocaine-prilocaine 2.5 %-2.5 % 1 applic topical DIRECTED 01/21/23 01/21/23 Unknown topical cream pregabalin 100 mg capsule 100 mg PO .TID 3 DAYS A WEEK 01/21/23 01/21/23 Unknown Active Medications Generic Name Dose Route Start Last Admin Trade Name Freq PRN Reason Stop Dose Admin Atorvastatin Calcium 80 mg 01/21/23 21:00 01/23/23 20:14 Atorvastatin 40 Mg Tab PO 02/20/23 20:59 80 mg QPM BAYRON Administration Carbidopa/Levodopa 1 tab 01/21/23 17:00 01/24/23 08:58 Carbidopa/Levodopa 25/100mg Tab PO 02/20/23 16:59 1 tab TIDM BAYRON Administration Docusate Sodium 100 mg 01/22/23 09:00 01/24/23 09:04 Docusate Sodium 100 Mg Cap PO 02/21/23 08:59 100 mg [email or web address] BAYRON Administration Ferric Citrate 420 mg 01/23/23 17:00 01/24/23 08:59 Ferric Citrate 210 Mg Tab PO 02/22/23 16:59 420 mg TIDM BAYRON Administration Fluticasone/Vilanterol 1 puffs 01/22/23 09:00 01/24/23 08:59 Fluticasone/Vilanterol 200/25mcg 14 Puffs/Inhaler INH 02/21/23 08:59 1 puffs DAILY BAYRON Administration Hydrocortisone 25 mg 01/23/23 15:30 01/23/23 20:13 Hydrocortisone Acetate 25 Mg Supp HI 02/22/23 15:29 25 mg DAILY BAYRON Administration Pantoprazole Sodium 40 mg/ 10 mls @ 5 mls/min 01/22/23 21:00 01/24/23 08:57 Syringe IV 02/21/23 20:59 5 mls/min BID@0900,2100 BAYRON Administration Insulin Aspart 0 units 01/22/23 16:30 01/24/23 08:53 Insulin Aspart Per Unit Charge SC 02/21/23 05:59 Not Given ACHS BAYRON Isosorbide Mononitrate 30 mg 01/21/23 21:00 01/23/23 20:15 Isosorbide [place] Extended Rel 30 Mg Tabcr PO 02/20/23 20:59 30 mg QPM BAYRON Administration Levothyroxine Sodium 125 mcg 01/22/23 06:30 01/24/23 05:33 Levothyroxine Sodium 125 Mcg Tablet PO 02/21/23 06:29 125 mcg DAILYBB BAYRON Administration Melatonin 9 mg 01/21/23 14:27 01/23/23 20:30 Melatonin 3 Mg Tab PO 02/20/23 14:26 9 mg HSZ PRN Administration Sleep Pregabalin 100 mg 01/23/23 09:00 01/22/23 22:09 Pregabalin 100 Mg Cap PO 02/22/23 08:59 100 mg [email or web address] BAYRON Administration Pregabalin 100 mg 01/22/23 09:00 01/24/23 08:57 Pregabalin 100 Mg Cap PO 02/21/23 08:59 100 mg [id number]@0900,2100 BAYRON Administration Sertraline HCl 100 mg 01/21/23 21:00 01/23/23 20:15 Sertraline Hcl 100 Mg Tablet PO 02/20/23 20:59 100 mg QPM BAYRON Administration Vitamin B Complex/Folic Acid 1 cap 01/21/23 21:00 01/23/23 20:15 Nephrocaps PO 02/20/23 20:59 1 cap QPM BAYRON Administration (4) Anemia Anemia type: unspecified type Qualified Code(s): D64.9 - Anemia, unspecified (5) Hypotension Hypotension type: unspecified hypotension type Qualified Code(s): I95.9 - Hypotension, unspecified (7) Hypertension Hypertension type: essential hypertension Qualified Code(s): I10 - Essential (primary) hypertension
--- NOTE | 2023-01-24 12:46 | Anesthesiology Progress Note ---
Date of Service January 24, 2023 Anesthesia Post Procedure Vital Signs Vital Signs: Temp Pulse Pulse Pulse Resp BP Pulse Ox 01/24/23 12:34 69 16 120/55 L 95 01/24/23 12:19 65 16 107/47 L 93 01/24/23 12:03 63 16 106/44 L 92 01/24/23 10:54 37 C 65 18 112/55 L 92 01/24/23 08:00 71 01/24/23 08:00 01/24/23 07:00 36.9 C 65 22 124/74 93 01/24/23 03:18 36.3 C L 68 18 158/64 H 93 01/24/23 02:59 61 23 94 01/24/23 01:00 70 01/23/23 23:00 62 23 91 01/23/23 22:41 36.8 C 62 18 155/66 H 93 01/23/23 20:04 145/78 H 01/23/23 19:41 01/23/23 19:18 36.7 C 113 H 20 155/78 H 95 01/23/23 14:52 36.6 C 65 18 133/55 L 83 L O2 Del Method O2 Flow Rate FiO2 01/24/23 12:34 Nasal Cannula 3 01/24/23 12:19 Nasal Cannula 3 01/24/23 12:03 Nasal Cannula 3 01/24/23 10:54 Nasal Cannula 3 01/24/23 08:00 01/24/23 08:00 Nasal Cannula 3 01/24/23 07:00 Nasal Cannula 3 01/24/23 03:18 BiPAP 01/24/23 02:59 30 01/24/23 01:00 01/23/23 23:00 30 01/23/23 22:41 BiPAP 01/23/23 20:04 01/23/23 19:41 Nasal Cannula 3 01/23/23 19:18 Nasal Cannula 3 01/23/23 14:52 Nasal Cannula 3 Pain Intensity Bilateral Foot: Pain Intensity: 0 Transfer of Care Handoff Completed per policy Notes Mental Status: alert / awake / arousable and participated in evaluation Patient Amnestic to Procedure: Yes Nausea / Vomiting: adequately controlled Pain: adequately controlled Airway Patency, RR, SpO2: stable & adequate BP & HR: stable & adequate Hydration State: stable & adequate Anesthetic Complications: no major complications apparent
[2023-01-24] MEDS: HYDROCORTISONE ACETATE 25 MG SUPP PR SCH (15:13)
[2023-01-24] MEDS: ISOSORBIDE MONO EXTENDED REL 30 MG TABCR PO SCH (20:14)
[2023-01-24] MEDS: SERTRALINE HCL 100 MG TABLET PO SCH (20:14)
[2023-01-24] MEDS: ATORVASTATIN 40 MG TAB PO SCH (20:14)
[2023-01-24] MEDS: NEPHROCAPS PO SCH (20:15)
[2023-01-25] MEDS: LEVOTHYROXINE SODIUM 125 MCG TABLET PO SCH (05:43)
[2023-01-25] MEDS ORDERED: SODIUM CHLORIDE 0.9% 1,000 ML IV PRN (07:00)
[2023-01-25] MEDS ORDERED: EPOETIN ALFA 20,000 UNITS/ML VIAL IV ONE (07:00)
[2023-01-25 07:36] LABS: Hematocrit (blood only) 27.9 % (37.0-47.0); Hemoglobin 8.6 g/dl (12.0-16.0); Mean Corpuscular Hemoglobin 30.6 pg (25.0-34.0); Mean Corpuscular Hgb Conc 30.8 g/dL (32.0-36.0); Mean Corpuscular Volume 99.3 fL (80.0-100.0); Mean Platelet Volume 11.3 fL (9.4-12.4); Nucleated RBC # (auto) 0.03 K/uL (0.00-0.12); Nucleated RBC % (auto) 0.3 %; Platelet Count 221 K/uL (130-400); RDW Coefficient of Variation 17.1 % (11.5-14.5); RDW Standard Deviation 60.5 fL (36.4-46.3); Red Blood Count 2.81 M/uL (4.20-5.40); White Blood Count 9.31 K/ul (4.8-10.8)
[2023-01-25 07:49] LABS: BUN Creatinine Ratio 4.4 (10-20); Calcium 9.3 mg/dl (8.6-10.3); Creatinine Clr Calc Pharmacy 6.7 ml/min; Est GFR (African American) 4.9 ml/min; Est GFR (Non-African American) 4.3 ml/min; Phosphorus 5.5 mg/dl (2.5-4.9)
[2023-01-25] MEDS: FERRIC CITRATE 210 MG TAB PO SCH ×3 (08:55→17:27)
[2023-01-25] MEDS: PANTOprazole 40 MG in SYRINGE 0 ML IV SCH ×2 (08:55→20:07)
[2023-01-25] MEDS: FLUTICASONE/VILANTEROL 200/25MCG 14 PUFFS/INHALER INH SCH (08:55)
[2023-01-25] MEDS: HYDROCORTISONE ACETATE 25 MG SUPP PR SCH (08:56)
[2023-01-25] MEDS: PREGABALIN 100 MG CAP PO SCH (08:58)
[2023-01-25] MEDS: INSULIN ASPART PER UNIT CHARGE SC SCH ×5 (08:59→20:41)
[2023-01-25] MEDS: CARBIDOPA/LEVODOPA 25/100MG TAB PO SCH ×3 (09:11→17:27)
--- NOTE | 2023-01-25 12:57 | Nephrology Progress Note ---
Date of Service January 25, 2023 Assessment & Plan (1) Hemodialysis status: Plan: ESRD patient TTS schedule and she did receive dialysis as an inpatient. Patient tolerating dialysis well today. Next dialysis will be Friday (2) Rectal bleeding: Plan: Acute on chronic possible rectal bleeding. Already been evaluated by gastroenterology and she did receive 1 unit of blood transfusion. No plan for endoscopy or colonoscopy at this point. Patient will be receiving Epogen 74685 units today with dialysis (3) Anemia: Plan: hemoglobin of 8.6 today. Continue Epogen with dialysis as above Admission and Anticipated Discharge Date Admission Date: January 21, 2023 Subjective seen in follow-up for ESRD. She feels well denies any shortness of breath or leg swelling. Patient was seen and examined while on dialysis. Review of Systems 2 Review of Systems: All other systems were reviewed and negative except as noted in HPI Physical Exam 2 Physical Exam: General exam: Appears comfortable, no acute distress HEENT: Pupils are equal and reactive to light Neck: No JVD, neck is supple trachea is midline Respiratory system: Clear breath sounds bilaterally. Gastrointestinal: Abdomen is soft, non distended, non tender, bowel sounds are present CVS: Regular rate and rhythm. No murmurs, rubs or gallops Musculoskeletal: No joint or muscle tenderness Extremities: Non tender, no edema, peripheral pulses are present Neuro: Oriented, no tremors, no focal neurological deficits Skin: No rashes Results & Data Vital Signs (Past 12 Hours) Vital Signs Temp Pulse Pulse Pulse Resp BP BP 01/25/23 12:30 48 L 93/42 L 01/25/23 12:00 58 L 120/46 L 01/25/23 11:30 63 106/53 L 01/25/23 11:00 58 L 103/42 L 01/25/23 10:30 62 119/51 L 01/25/23 10:07 63 01/25/23 10:00 49 L 103/29 L 01/25/23 09:45 61 126/50 L 01/25/23 09:35 37 C 61 01/25/23 08:29 36.6 C 63 18 108/55 L 01/25/23 07:30 01/25/23 03:20 19 01/25/23 03:13 36.7 C 65 18 126/62 Pulse Ox O2 Del Method O2 Flow Rate FiO2 01/25/23 12:30 01/25/23 12:00 01/25/23 11:30 01/25/23 11:00 01/25/23 10:30 01/25/23 10:07 01/25/23 10:00 01/25/23 09:45 01/25/23 09:35 01/25/23 08:29 92 Room Air 01/25/23 07:30 Nasal Cannula 3 01/25/23 03:20 30 01/25/23 03:13 90 BiPAP Laboratory Results 01/25/23 06:31 01/25/23 06:31 WBC 9.31 RBC 2.81 L MCV 99.3 MCH 30.6 MCHC 30.8 L RDW Std Deviation 60.5 H RDW Coeff of Bhavin 17.1 H Plt Count 221 MPV 11.3 Phosphorus 5.5 H (3) Anemia Anemia type: unspecified type Qualified Code(s): D64.9 - Anemia, unspecified
--- NOTE | 2023-01-25 13:07 | Hospitalist Progress Note ---
Date of Service January 25, 2023 Assessment & Plan (1) Rectal bleeding: (2) End stage chronic kidney disease: (3) Hemodialysis status: (4) Anemia: (5) Hypotension: (6) DM type 2 (diabetes mellitus, type 2): (7) Hypertension: (8) Parkinson disease: (9) LBBB (left bundle branch block): Plan Ms Hassan is a 77yo F with a PMH DM II, hypothyroidism, COPD, ESRD on hemodialysis, anemia, rheumatoid arthritis, h/o sacral ulcers, history of rectal bleeding 2/2 hemorrhoids and other medical problems listed below who presents from dialysis clinic with concern for rectal bleed. Patient's provides majority of history, noting multiple episodes of bright red blood, but more frequent dark, "difficult to clean" episodes of stool. General Surgery consulted to examine if any intervention warranted on hemorrhoids. GI reconsulted given melanotic stool and continued bleeding, noted by poor response to transfusion administered on 01/21. Patient undergoing EGD today. Contingent on EGD, patient will likely be stable for discharge if no further interventions warranted pending approval from facility. #Encephalopathy, c/f hypercapnia *improving #RENÉ -Napping all day; confused when awakening, no CPAP at bedside -VBG normal, will continue CPAP at night and with nap -Nocturnal sleep study given reports of occasional "confusion" and "sleepiness" #Rectal bleed *stable #Melanotic stool Previously admitted in September 2022 and underwent colonoscopy, which showed internal/external hemorrhoids Presented today hypotensive with SBP in 60s (improved to 110s, normal HR, BUN 63, Cr 9.59) Hgb today 8.4 (similar to September admission), but outpatient hgb closer to 10-11 over the last few months s/p 1 [facility] 01/21 -Gen surg consult: no banding necessary, stable, CTM -GI reconsulted: Follow up post EGD for management and dispo planning -Suppos hydrocortisone for hemorrhoids #Acute on Chronic Macrocytic anemia *stable #Anemia of ESRD #RACHEL -Follows Dr. Lisa loyola "Hemorrhoids and diverticulosis found on colonoscopyalong with a serrated polyp which was removed. Thickened endometrium w benign path.She had UGI endoscopy in Apr that showed LA grade B esophagitis, erythema of gastric antrum, body, and duodenum, and with starting Protonix, a second scope in June showed resolution.VCE showing duodenitis." -Receives Venofer with HD -Trend H/H, ensure Heme/Onc follow up and Nephrology -EGD completed, report not uploaded, repotedly stable per nursing handoff #ESRD (end stage renal disease) on dialysis Sent over from dialysis today for concern for rectal bleed (last complete dialysis Friday, [facility] schedule) Nephrology following, HD today #DM II Diet controlled, A1c of 5.3 in May 2022 Diabetic diet, loose SSI while admitted BSG AC HS #Chronic HFpEF #LBBB (left bundle branch block) Chronic, stable #Parkinson disease Continue Sinemet per home regimen #Hypothyroidism Stable, continue levothyroxine DVT Ppx: SCDs given bleed Code status: FULL CODE PCP: Kay Dispo: Medically stable at this time, pending placement Admission and Anticipated Discharge Date Admission Date: January 21, 2023 Subjective NAEO Hearing aids not charged this am Discussed stable hgb, patient verbalized understanding Denies any new concerns this am, verbalized understanding about rehab/placement pending Review of Systems Review of Systems: All systems reviewed & are unremarkable except as noted in Subjective Physical Exam Constitutional: WD/WN, vitals as above Respiratory: normal respiratory effort, lungs clear to auscultation Cardiovascular: RRR, no murmur, no edema Gastrointestinal (Abdomen): normal bowel sounds, soft, nontender, no hepatos plenomegaly Results & Data Results & Data Vital Signs (Past 12 Hours) Vital Signs Temp Pulse Pulse Pulse Resp BP BP 01/25/23 12:30 48 L 93/42 L 01/25/23 12:00 58 L 120/46 L 01/25/23 11:30 63 106/53 L 01/25/23 11:00 58 L 103/42 L 01/25/23 10:30 62 119/51 L 01/25/23 10:07 63 01/25/23 10:00 49 L 103/29 L 01/25/23 09:45 61 126/50 L 01/25/23 09:35 37 C 61 01/25/23 08:29 36.6 C 63 18 108/55 L 01/25/23 07:30 01/25/23 03:20 19 01/25/23 03:13 36.7 C 65 18 126/62 Pulse Ox O2 Del Method O2 Flow Rate FiO2 01/25/23 12:30 01/25/23 12:00 01/25/23 11:30 01/25/23 11:00 01/25/23 10:30 01/25/23 10:07 01/25/23 10:00 01/25/23 09:45 01/25/23 09:35 01/25/23 08:29 92 Room Air 01/25/23 07:30 Nasal Cannula 3 01/25/23 03:20 30 01/25/23 03:13 90 BiPAP Laboratory Results Short CBC 01/25/23 Range/Units 06:31 WBC 9.31 (4.8-10.8) K/ul Hgb 8.6 L (12.0-16.0) g/dl Hct 27.9 L (37.0-47.0) % Plt Count 221 (130-400) K/uL BMP 01/25/23 06:31 Sodium 139 Potassium 4.0 Chloride 102 Carbon Dioxide 28 BUN 36 H Creatinine 8.24 H* D Glucose 78 Calcium 9.3 Medications Administered Home Medications Medication Instructions Recorded Confirmed Last Taken aspirin 81 mg tablet,delayed 162 mg PO QAM 11/15/21 01/21/23 09/04/22 release atorvastatin 80 mg tablet 80 mg PO QPM 11/15/21 01/21/23 09/04/22 carbidopa 25 mg-levodopa 100 mg 1 tab PO TIDM 11/15/21 01/21/23 09/05/22 07:00 tablet docusate sodium 100 mg capsule 100 mg PO Q2D 11/15/21 01/21/23 09/04/22 (Colace) isosorbide mononitrate 30 mg 30 mg PO QPM 11/15/21 01/21/23 09/04/22 tablet,extended release 24 hr levothyroxine 125 mcg tablet 125 mcg PO QAM 11/15/21 01/21/23 09/04/22 lidocaine-prilocaine 2.5 %-2.5 % 1 applic topical DIRECTED PRN 1 11/15/21 01/21/23 09/05/22 topical cream HR PRIOR TO DIALYSIS pregabalin 100 mg capsule 100 mg PO .BID 4DAYSWEEK 11/15/21 01/21/23 09/04/22 sertraline 100 mg tablet 100 mg PO QPM 11/15/21 01/21/23 09/04/22 vitamin B complex-vitamin C-folic 1 tab PO QPM 04/16/22 01/21/23 09/04/22 acid 0.8 mg tablet (Nanci-Samuel) pantoprazole 20 mg tablet,delayed 20 mg PO BID 05/23/22 01/21/23 09/04/22 release acetaminophen 325 mg tablet 650 mg PO Q6H PRN Pain 09/05/22 01/21/23 Unknown (Tylenol) epinephrine 0.3 mg/0.3 mL 0.3 mg IM DIRECTED PRN Allergic 09/05/22 01/21/23 Unknown injection, auto-injector (EpiPen) Reaction hydrocortisone 2.5 % topical cream 1 applic HI DAILY PRN Hemorrhoids 09/05/22 01/21/23 Unknown with perineal applicator meclizine 12.5 mg tablet 12.5 mg PO TID PRN Dizziness 09/05/22 01/21/23 Unknown melatonin 10 mg tablet 10 mg PO HS PRN Sleep 09/05/22 01/21/23 09/04/22 nystatin 100,000 unit/gram topical 1 applic EXT BID #30 grams 09/09/22 01/21/23 Unknown powder (Nystop) ferric citrate 210 mg iron tablet 420 mg PO TIDM 01/21/23 01/21/23 Unknown (Auryxia) fluticasone furoate 200 1 inh inhalation DAILY 01/21/23 01/21/23 Unknown mcg-vilanterol 25 mcg/dose inhalation powder (Breo Ellipta) lidocaine-prilocaine 2.5 %-2.5 % 1 applic topical DIRECTED 01/21/23 01/21/23 Unknown topical cream pregabalin 100 mg capsule 100 mg PO .TID 3 DAYS A WEEK 01/21/23 01/21/23 Unknown Active Medications Generic Name Dose Route Start Last Admin Trade Name Freq PRN Reason Stop Dose Admin Acetaminophen 650 mg 01/21/23 14:17 01/24/23 15:15 Acetaminophen 325 Mg Tab PO 02/20/23 14:16 650 mg Q4H PRN Administration Pain or Fever Atorvastatin Calcium 80 mg 01/21/23 21:00 01/24/23 20:14 Atorvastatin 40 Mg Tab PO 02/20/23 20:59 80 mg QPM BAYRON Administration Carbidopa/Levodopa 1 tab 01/21/23 17:00 01/25/23 09:11 Carbidopa/Levodopa 25/100mg Tab PO 02/20/23 16:59 1 tab TIDM BAYRON Administration Docusate Sodium 100 mg 01/22/23 09:00 01/24/23 09:04 Docusate Sodium 100 Mg Cap PO 02/21/23 08:59 100 mg [email or web address] BAYRON Administration Ferric Citrate 420 mg 01/23/23 17:00 01/25/23 08:55 Ferric Citrate 210 Mg Tab PO 02/22/23 16:59 420 mg TIDM BAYRON Administration Fluticasone/Vilanterol 1 puffs 01/22/23 09:00 01/25/23 08:55 Fluticasone/Vilanterol 200/25mcg 14 Puffs/Inhaler INH 02/21/23 08:59 1 puffs DAILY BAYRON Administration Hydrocortisone 25 mg 01/23/23 15:30 01/25/23 08:56 Hydrocortisone Acetate 25 Mg Supp HI 02/22/23 15:29 25 mg DAILY BAYRON Administration Pantoprazole Sodium 40 mg/ 10 mls @ 5 mls/min 01/22/23 21:00 01/25/23 08:55 Syringe IV 02/21/23 20:59 5 mls/min BID@0900,2100 BAYRON Administration Insulin Aspart 0 units 01/22/23 16:30 01/25/23 08:59 Insulin Aspart Per Unit Charge SC 02/21/23 05:59 Not Given ACHS BAYRON Isosorbide Mononitrate 30 mg 01/21/23 21:00 01/24/23 20:14 Isosorbide [place] Extended Rel 30 Mg Tabcr PO 02/20/23 20:59 30 mg QPM BAYRON Administration Levothyroxine Sodium 125 mcg 01/22/23 06:30 01/25/23 05:43 Levothyroxine Sodium 125 Mcg Tablet PO 02/21/23 06:29 125 mcg DAILYBB BAYRON Administration Melatonin 9 mg 01/21/23 14:27 01/23/23 20:30 Melatonin 3 Mg Tab PO 02/20/23 14:26 9 mg HSZ PRN Administration Sleep Pregabalin 100 mg 01/23/23 09:00 01/25/23 08:58 Pregabalin 100 Mg Cap PO 02/22/23 08:59 100 mg [email or web address]@0900 BAYRON Administration Pregabalin 100 mg 01/22/23 09:00 01/24/23 20:16 Pregabalin 100 Mg Cap PO 02/21/23 08:59 100 mg SuMoWeFr@0900,2100 BAYRON Administration Sertraline HCl 100 mg 01/21/23 21:00 01/24/23 20:14 Sertraline Hcl 100 Mg Tablet PO 02/20/23 20:59 100 mg QPM BAYRON Administration Vitamin B Complex/Folic Acid 1 cap 01/21/23 21:00 01/24/23 20:15 Nephrocaps PO 02/20/23 20:59 1 cap QPM BAYRON Administration (4) Anemia Anemia type: unspecified type Qualified Code(s): D64.9 - Anemia, unspecified (5) Hypotension Hypotension type: unspecified hypotension type Qualified Code(s): I95.9 - Hypotension, unspecified (7) Hypertension Hypertension type: essential hypertension Qualified Code(s): I10 - Essential (primary) hypertension
[2023-01-25] MEDS: ATORVASTATIN 40 MG TAB PO SCH (20:08)
[2023-01-25] MEDS: SERTRALINE HCL 100 MG TABLET PO SCH (20:08)
[2023-01-25] MEDS: NEPHROCAPS PO SCH (20:08)
[2023-01-25] MEDS: ISOSORBIDE MONO EXTENDED REL 30 MG TABCR PO SCH (20:08)
--- OUTSIDE RECORDS SUMMARY | 2023-01-25 20:37 | External Medical Summary | Summary of Care ---
Author Name Unknown Organization [facility] Address [address] [place] [address] Phone [phone] Care Team Providers Care Character Artist Name Role Phone Bella Power MD Primary Care Prov ider Reason for Visit * Reason Onset Date Comments Med Request 01/14/2023 Encounter Details Date Type Department Care Team (Late st Contact Info) Description 01/14/2023 Telephone Cardiology, [facility] [address] [address] Jadon Piper, Zurdo Tam, DO Med Request Allergies No known active allergiesdocumented as of this encounter (statuses as of 01/20/2023) Medications Medication Sig Dispensed Refills Start Date End Date Status ONETOUCH DELICA LANCETS 33G MISC Up to 4 times daily 100 Each 6 11/24/2014 Active Glucose Blood (ONETOUCH ULTRA BLUE) STRP Use as directed 4 times a day as needed (Diabetes). Use up to four times a day as directed 100 Strip 11 02/03/2018 Active Nebulizers (NEBULIZER COMPRESSOR) MISCIndications:COPD , group B, by GOLD 2017 classification (HCC) Inhale via nebulizer. Use as directed. 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 1 Each 0 12/10/2018 Active Melatonin 10 MG Tablet Take 1 Tablet by mouth every night at bedtime. 0 Active DIURETIC TITRATION PLAN If no improvement on day 3, contact heart failure managing provider. 0 Active acetaminophen (TYLENOL) 325 MG Tablet Take 2 Tabs by mouth every 6 hours as needed for Pain. 30 Tab 0 04/27/2019 Active Cholecalciferol (VITAMIN D3) 125 MCG (5000 UT) Tablet Take 1 Capsule by mouth in the morning. 0 09/15/2019 Active EPINEPHrine, Anaphylaxis, 1 MG/ML SOLN Inject 0.3 mL as directed as needed for Anaphylaxis (severe allergic reaction). 0.3 mL 0 10/14/2019 Active Aspirin 81 MG Oral Tablet Delayed ReleaseIndications:A SCVD (arteriosclerotic cardiovascular disease) Take 2 Tablets by mouth in the morning. 30 Tab 5 12/03/2019 Active Coloplast PasteIndications:Hem orrhoids, external without complications Use to hemorrhoids 1-2 times per day 57 g 3 12/06/2019 Active Meclizine HCl 12.5 MG Oral Tablet (ANTIVERT) Take 1 Tablet by mouth 3 times a day as needed. 0 Active Breo Ellipta 200-25 MCG/INH Inhalation Aerosol Powder Breath Activated (fluticasone furoate-vilanterol)I ndications:COPD, group B, by GOLD 2017 classification ([facility]) Inhale by mouth 1 Puff in the morning. 60 Each 0 08/22/2021 Active Auryxia 1 GM 210 MG(Fe) Oral Tablet TAKE 1 TABLET BY MOUTH THREE TIMES A DAY WITH MEALS. SWALLOW WHOLE, DO NOT CHEW OR CRUSH MEDICATION 0 05/11/2022 Active Nanci-Samuel Oral Tablet Take 1 Tablet by mouth in the morning. 0 05/16/2022 Active Docusate Sodium 100 MG Oral Capsule (Colace)Indications: Chronic idiopathic constipation TAKE ONE CAPSULE BY MOUTH IN THE MORNING AND ONE CAPSULE BEFORE BEDTIME 60 Capsule 5 08/06/2022 4 Active Sertraline HCl 100 MG Oral Tablet (Zoloft) TAKE ONE TABLET BY MOUTH IN THE MORNING 30 Tablet 5 08/21/2022 4 Active Levothyroxine Sodium 125 MCG Oral Tablet (Levoxyl) TAKE 1 TABLET BY MOUTH DAILY AT LEAST 30 MINUTES PRIOR TO FIRST MEAL OF THE DAY OR OTHER MEDICATIONS. 90 Tablet 3 08/21/2022 4 Active Atorvastatin Calcium 80 MG Oral Tablet (Lipitor) TAKE 1 TABLET BY MOUTH DAILY. 90 Tablet 1 08/21/2022 4 Active Mupirocin 2 % External Ointment (Bactroban) apply one application externally twice daily 22 g 0 09/09/2022 Active Carbidopa-Levodopa 25-100 MG Oral Tablet (Sinemet) TAKE ONE TABLET BY MOUTH THREE TIMES A DAY WITH MEALS 90 Tablet 5 09/14/2022 4 Active Lidocaine-Prilocaine 2.5-2.5 % External Cream (Emla) APPLY SMALL AMOUNT TO ACCESS SITE (AVF) 1 TO 2 HOURS BEFORE DIALYSIS. COVER WITH OCCLUSIVE DRESSING (SARAN WRAP) 30 g 11 11/09/2022 Active Nystatin 315007 UNIT/GM External Powder (Nystop) Apply topically to affected area 2 times a day. 60 g 5 11/09/2022 Active Pantoprazole Sodium 20 MG Oral Tablet Delayed Release (Protonix) Take 1 Tablet by mouth in the morning and 1 Tablet in the evening. 180 Tablet 1 11/27/2022 Active Pregabalin 100 MG Oral Capsule (Lyrica)Indications: Primary parkinsonism Take 1 capsule twice daily. May take 1 extra capsule after dialysis. 90 Capsule 1 11/26/2022 Active Hydrocortisone (Perianal) 2.5 % External Cream (Procto-Med HC)Indications:Hemor rhoids, external without complications ADMINISTER INTO RECTUM OR APPLY TO EXTERNAL HEMORRHOIDS ONCE DAILY 28 g 2 12/31/2022 4 Active documented as of this encounter (statuses as of 01/20/2023) Active Problems Problem Noted Date Diagnosed Date Serrated polyp of colon 09/20/2022 Overview: 7 mm descending colon BMI 38.0-38.9,adult 09/12/2022 Overview: 210 Rectal bleeding 08/09/2022 Last Assessment & Plan: Needs colonoscopy scheduled -CBC Acquired hypothyroidism 06/17/2022 Last Assessment & Plan: TSH ordered Continue Synthroid Palliative care encounter 06/07/2021 Dementia associated with Parkinson's disease Last Assessment & Plan: Baseline -continue carbidopa levodopa, Lyrica AVF (arteriovenous fistula) 08/16/2020 Dependence on renal dialysis 12/03/2019 Last Assessment & Plan: continue Auryxia , nephrovite History of CVA (cerebrovascular accident) 2019 Last Assessment & Plan: Continue aspirin, atorvastatin Personal history of fall 10/21/2019 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 Hypotensive today, however the patient just woke up in his lying in bed. Asymptomatic. -continue Imdur Iron deficiency anemia due to chronic blood loss 04/26/2019 Last Assessment & Plan: Hemoglobin 10.2 on 05/25/2022 COPD, group B, by GOLD 2017 classification 03/23 Last Assessment & Plan: COPD "RED FLAG" COPD symptoms: o NO IDENTIFIED SYMPTOMS Medication Regimen o Breo-noncompliant Exacerbation Mgt: o No exacerbations in the past 3 months o Rescue Kit in place in Medication List: No. o Used rescue kit in the past month: No o Required IM or IV steroids (Solumedrol) since last visit: No Noncompliant with Breo Chronic heart failure with preserved ejection fr action 03/23/2019 Overview: Echo 2019 EF 50% Grade 1 diastolic dysfunction Last Assessment & Plan: Current Status: "Stable" for patient / At or near baseline Degree of Condition Awareness: Demonstrates very good awareness of condition, disease course, and prognosis "RED FLAG" HF Symptoms: o Increased dyspnea on exertion (Example: "I can't walk to the kitchen or up the stairs") Current Heart Failure Classifications: o With less than ordinary activity ([employer] [place] [employer] CLASS III) Diagnostic Review: Recent Labs Units 04/15/22 1353 06/12/21 0000 EGFR-OUTSIDE LAB ML/MIN -- 11.8 HGB - [facility] g/dL 11.3* -- HEMOGLOBIN-OUTSIDE LAB G/DL -- 9.7* Medication Regimen: o Beta Tanner Therapy: Other: none o HARESH Inhibitor/ARB Therapy: Other: none o Diuretic therapy: Other: HD Self - Management Plan o Other/Additional Comments: hd Exacerbation Plan o Chest X-Ray Venous stasis dermatitis of both lower extremiti es 12/13/2018 History of non-ST elevation myocardial infarctio n (NSTEMI) 08/24/2018 Last Assessment & Plan: Stable. No angina. -continue atorvastatin, baby aspirin. Not on beta-tanner. BP will not tolerate Primary parkinsonism 12/09/2017 Last Assessment & Plan: Continue carbidopa levodopa Rheumatoid arthritis involvi ng both hands with positive rheumatoid factor 07/18/2016 RENÉ on CPAP 04/03/2015 Last Assessment & Plan: Compliant with CPAP Restless leg syndrome 08/14/2012 Type 2 diabetes mellitus wit h hemoglobin A1c goal of less than 7.0% 10/23/2011 Overview: ICD-10 update of inactive term Steatohepatitis, non-alcoholic 07/11/2009 Hypothyroidism due to acquired atrophy of thyroi d 06/27/2009 Meniere's disease, cochlear, active 10/07/2006 ADVANCE DIRECTIVE INFORMATION 08/02/2005 Overview: Yes-advised to bring copy in to be scanned into EMR Dyslipidemia, goal LDL below 100 AYSHA (generalized anxiety disorder) Last Assessment & Plan: Stable on sertraline Mild neurocognitive disorder documented as of this encounter (statuses as of 01/20/2023) Resolved Problems Problem Noted Date Diagnosed Date Resolved Date Major depressive disorder, r ecurrent episode, moderate 08/09/2022 08/09/2022 Last Assessment & Plan: Stable on sertraline Hypothyroidism 05/31/2021 05/27/2022 MDD (major depressive disord er), recurrent, in partial remission 08/16/2020 09/08/2020 Hypothyroidism, unspecified 08/16/2020 09/08/2020 Body mass index (BMI) of 45. 0 to 49.9 in adult 09/27/2019 11/25/2019 Overview: Per Obesity protocol Degenerative disease of nerv ous system, unspecified 08/26/2019 08/16/2020 Multiple falls 04/20/2019 11/26/2019 Overview: History of falls on the pl SDH (subdural hematoma) 04/20/201907/16 Overview: acute Ecchymosis 04/20/2019 09/08/2020 Old myocardial infarct 12/13/201801/07 Morbid obesity with body mas s index (BMI) of 40.0 to 44.9 in adult 12/04/2018 09/30/2019 Overview: Per Obesity protocol Acute heart failure 09/03/2018 12/05/19 NSTEMI (non-ST elevated myoc ardial infarction) 09/03/2018 01/07/2019 MDD (major depressive disord er), recurrent, in partial remission 08/04/2018 01/18/2020 Diabetes mellitus with stage 3 chronic kidney disease 06/24/2017 09/30/2019 Overview: Per CKD protocol #1 Chronic kidney disease due t o type 2 diabetes mellitus 08/09/2016 06/27/2017 Overview: Per CKD protocol #1 Kidney disease, chronic, sta ge III (GFR 30-59 ml/min) 07/22/2016 08/07/2017 Overview: Per CKD protocol #1 Type 1 diabetes mellitus wit h hemoglobin A1c goal of less than 7.0% 11/10/2009 10/23/2011 Overview: ICD-10 update of inactive term BMI 35-39 ISOLATED (SEE ACTUAL BMI) 08/28/2009 08/05/2019 Overview: bmi 40 More specific code on pl Per Obesity Protocol, #19 Venous thrombosis 03/08/2008 10/25/2008 Anticoagulation management encounter 03/08/2008 10/25/2008 Essential hypertension with goal blood pressure less than 140/90 05/14/2005 06/17/2022 Encounter for long-term (cur rent) use of medications 01/18/2005 02/03/2006 Overview: ICD-10 update of inactive term Tobacco use disorder 08/11/2001 016 PURE HYPERCHOLESTEROLEM 02/15/200002/14 Overview: Per Lipid Taxonomy. Allergic rhinitis 02/15/2000 08/05/2019 Overview: acute Menopause 12/06/1998 02/03/2006 ADJ DISORDER W/DEPRES MOOD 12/06/1998 0 09/08/2020 (HFpEF) heart failure with p reserved ejection fraction 11/26/2019 Overview: More specific code on the pl documented as of this encounter (statuses as of 01/20/2023) Immunizations Name Administration Dates Next Due COVID-19 mRNA, LNP-s, No Pre serve, 2-Dose Series ([employer]) 01/02/2021,06/21/2020,05/24/2020 COVID-19, mRNA, LNP-s, PF, B ooster, 100mcg/0.5mg (Moderna) 07/23/2021 Covid-19, Mrna, Lnp-s, Pf, B ivalent, 50 Mcg, IM, 12 yrs and above (Moderna) 01/17/2022 Pneumococcal Conjugate Vacc, 13 Valent (Prevnar) 10/28/2014 Pneumococcal Polysaccharide PPV23 (Pneumovax) 03/22/2016,12/04/2009 SEASONAL INFLUENZA, PF, 6 M & Above, IM , (FLULAVAL or FLUZONE) 12/29/2021,01/03/2019,12/09/2017 Seasonal Influenza, Quadriva lent Hd (Fluzone Hd) 05/31/2021 Seasonal Influenza, Quadriva lent Hd, 65+ Yrs 11/16/2019 Seasonal Influenza, Quadriva lent, No Preserve, IM 11/25/2016,11/23/2015,12/26/2014 Seasonal Influenza, Split, I IV3, With Preserve, Inj 11/22/2013,12/25/2012,12/24/2011,12/04,12/08/2008,12/25/2007,01/19/2007 ,01/21/2006 TDAP (age 11 and older)(Adacel) 06/27/2009 Varicella Zoster Vaccine (Adult) 10/23/2011 documented as of this encounter Social History Tobacco Use Types Packs/Day Years Used Date Smoking Tobacco: Former Cigarettes 0.3 50 Q uit: 04/20/1989 Smokeless Tobacco: Never Comments:smoked since 19 yea rs of age. Smokes a pack every 3-4 days. Alcohol Use Standard Drinks/Week Comments Never 0 (1 standard drink = 0.6 oz pur e alcohol) AUDIT-C Answer Date Recorded Frequency of Alcohol Consumption Never 11/27/2018 Average Number of Drinks Not on file 019 Frequency of Binge Drinking Not on file 11/15 PHQ-2 Answer Date Recorded PHQ-2 Score -1 12/05/2019 Hunger Vital Sign Answer Date Recorded Worried About Running Out of Food in the Last Ye ar Never true 01/21/2019 Ran Out of Food in the Last Year Never true 01/21/2019 Sex and Gender Information Value Date Recorded Sex Assigned at Not on file Gender Identity Not on file Sexual Orientation Not on file Job Start Date Occupation Industry Not on file Not on file Not on file documented as of this encounter Functional Status Functional Status Response Date of Assess ment Are you deaf or do you have serious difficulty h earing? No 04/20/2019 Are you blind or do you have serious difficulty seeing, even when wearing glasses? No 04/20/2019 Do you have serious difficul ty walking or climbing stairs? (5 years old or older) Yes 04/20/2019 Do you have difficulty dress ing or bathing? (5 years old or older) No 04/20/2019 Because of a physical, menta l, or emotional condition, do you have difficulty doing errands alone such as visiting a doctor s office or shopping? (15 years old or older) No 04/20/19 20 Cognitive Status Response Date of Assessm ent Because of a physical, menta l, or emotional condition, do you have serious difficulty concentrating, remembering, or making decisions? (5 years old or older No 04/20/2019 documented as of this encounter Miscellaneous Notes * Telephone Encounter - Tiera Oviedo CMA - 01/14/2023 1:35 PM EDT Not seen since 2020 - sent to PCP. * Telephone Encounter - Lisa Burger CPhT - 01/14/2023 10:00 AM EDT Patient's requesting refills for Isosorbide Mononitrate ER 30 MG Oral Tablet Extended Release 24 Hour (Imdur) . Upon chart review, medication is listed as as of 01/08/2023 . Please advise if you wish to continue this therapy for the patient. Thank you, Leelee Burger Tile Helper I [facility]) 01/14/2023,10:00 AM documented in this encounter Plan of Treatment Upcoming Encounters Date Type Department Care Team (Late st Contact Info) Description 01/28/2023 11:00 AM EST Scheduled Telephone [facility] [address] [address] [facility] T[facility] [address] [address] 02/24/2023 1:00 PM EST Laboratory Laboratory [facility] [phone] [place] [address] 02/24/2023 2:00 PM EST Office Visit Hematology/Oncology [facility] [address] [place] [address] Nita Pino CRNP [address] [place] [address] Scheduled Procedures Name Priority Associated Diagnoses Date/Ti me COLONOSCOPY FLEXIBLE PROXIMA L DIAGNOSTIC Recall Encounter for screening colonoscopy Health Maintenance Due Date Last Done Comments Zoster Vaccines (2 of 3) 12/18/2011 10/23/2011 Depression Screening 01/22/2020 01/21/2019 COVID-19 Vaccine (2022-2 4 season) 2022 01/17/2022, 07/23/2021, 01/02/2021, Additional history exists Influenza Vaccine (FLU shot) (#1) 2022 12/29/2021, 05/31/2021, 11/16/2019, Additional history exists TSH 08/11/2023 08/10/2022, 05/15, 08/21/2020, Additional history exists O2 ASSESSMENT COMPLETED IN P AST YEAR FOR COPD 11/21/2023 11/20/2022 Diabetic Eye Exam Discontinued 06/19/2020, , 12/25/2016, Additional history exists Diabetic Foot Exam Discontinued 08/16/2020, 0 08/26/2019, 08/04/2018, Additional history exists Colonoscopy Discontinued 09/20/2022, 11/15, 11/27/2015, Additional history exists Colorectal Cancer Screening Discontinued Cologuard Discontinued Fecal Occult Blood Test Discontinued Sigmoidoscopy Discontinued documented as of this encounter Medical Devices Not on filedocumented as of this encounter Advance Directives Documents on File Type Date Recorded Patient Padded Box Sewer Expl anation Power of Agricultural Adviser 12/16/2018 10:33 AM Nate r of Agricultural Adviser Latest Code Status on File Code Status Date Activated Date Inactivated Comments Limited Code 04/25/2019 7:49 AM 04/30/2019 8:58 PM Spoke to patient's spouse regarding code status. He would like to be called in case of need for intubation. She is listede as no code in advanced directive. May consider intubation if it would be for potentially reversible reasons This order reflects the patients wishes and were consensually agreed upon. Question Answer Comments Discussion of Advance Directives occurred with: Patient/Family Does the patient have a Living Will? Yes, in chart and reviewed as current Bag Valve Device? Yes Intubation? Yes Cardiac Compressions? No Defibrillation? No Synchronized Cardioversion? No External Pacemaker? No Cardiac Drugs? No Code Status History Code Status Date Activated Date Inactivated Comments Full Code 04/20/2019 7:06 PM 04/25/2019 7:49 AM Question Answer Comments Discussion of Advance Direct carin occurred with: Not Discussed Does the patient have a Living Will? No Does the patient have Health Care Power of Agricultural Adviser? No Healthcare Agents on File Name Relationship Healthcare Agent Relationshi p Communication Wesley Lee Sonya Spouse Health Care Agent Care Teams Character Artist Relationship Specialty Start Date End Date Bella Power MD [address] [place] [address] [address] [address] [id number] PCP - General Family Medicine 04/02/19 documented as of this encounter
--- OUTSIDE RECORDS SUMMARY | 2023-01-25 20:37 | External Medical Summary | Summary of Care ---
Author Name Unknown Organization [facility] Address [address] [facility] [place] [address] Phone [phone] Care Team Providers Care Procurement Assistant Name Role Phone Bella Morillo MD Primary Care Prov ider Reason for Visit * Reason Comments Medication Refill Encounter Details Date Type Department Care Team Description 12/30/2022 Refill Family Medicine [address] [phone] Bella Morillo MD [address] [place] [address] [place] [address] Hemorrhoids, external without complications Allergies No known active allergiesdocumented as of this encounter (statuses as of 12/31/2022) Medications Medication Sig Dispensed Refills Start Date End Date Status ONETOUCH DELICA LANCETS 33G MISC Up to 4 times daily 100 Each 6 11/24/2014 Active Glucose Blood (ONETOUCH ULTRA BLUE) STRP Use as directed 4 times a day as needed (Diabetes). Use up to four times a day as directed 100 Strip 11 02/03/2018 Active Nebulizers (NEBULIZER COMPRESSOR) MISCIndications:INSTITUTIONAL RESEARCH DIRECTOR D, group B, by GOLD 2017 classification ([facility]) Inhale via nebulizer. Use as directed. 1 Each 1 11/27/2018 Active DIURETIC TITRATION PLANIndications:Chr onic heart failure with preserved ejection fraction (HCC) [...] Active Aspirin 81 MG Oral Tablet Delayed ReleaseIndications: ASCVD (arteriosclerotic cardiovascular disease) Take 2 Tablets by mouth in the morning. 30 Tab 5 12/03/2019 Active Coloplast PasteIndications:He morrhoids, external without complications Use to hemorrhoids 1-2 times per day 57 g 3 12/06/2019 Active Meclizine HCl 12.5 MG Oral Tablet (ANTIVERT) Take 1 Tablet by mouth 3 times a day as needed. 0 Active Breo Ellipta 200-25 MCG/INH Inhalation Aerosol Powder Breath Activated (fluticasone furoate-vilanterol) Indications:COPD, group B, by GOLD 2017 classification ([facility]) Inhale by mouth 1 Puff in the morning. 60 Each 0 08/22/2021 Active Isosorbide Mononitrate ER 30 MG Oral Tablet Extended Release 24 Hour (Imdur) TAKE ONE TABLET BY MOUTH DAILY 90 Tablet 3 12/27/2021 3 Active Auryxia 1 GM 210 MG(Fe) Oral Tablet TAKE 1 TABLET BY MOUTH THREE TIMES A DAY WITH MEALS. SWALLOW WHOLE, DO NOT CHEW OR CRUSH MEDICATION 0 05/11/2022 Active Nanci-Samuel Oral Tablet Take 1 Tablet by mouth in the morning. 0 05/16/2022 Active Docusate Sodium 100 MG Oral Capsule (Colace)Indications :Chronic idiopathic constipation TAKE ONE CAPSULE BY MOUTH [...] MEALS 90 Tablet 5 09/14/2022 4 Active Lidocaine-Prilocain e 2.5-2.5 % External Cream (Emla) APPLY SMALL AMOUNT TO ACCESS SITE (AVF) 1 TO 2 HOURS BEFORE DIALYSIS. COVER WITH OCCLUSIVE DRESSING (SARAN WRAP) 30 g 11 11/09/2022 Active Nystatin 159089 UNIT/GM External Powder (Nystop) Apply topically to affected area 2 times a day. 60 g 5 11/09/2022 Active Pantoprazole Sodium 20 MG Oral Tablet Delayed Release (Protonix) Take 1 Tablet by mouth in the morning and 1 Tablet in the evening. 180 Tablet 1 11/27/2022 Active Pregabalin 100 MG Oral Capsule (Lyrica)Indications :Primary parkinsonism Take 1 capsule twice daily. May take 1 extra capsule after dialysis. 90 Capsule 1 11/26/2022 Active Hydrocortisone (Perianal) 2.5 % External Cream (Procto-Med HC)Indications:Hemo rrhoids, external without complications ADMINISTER INTO RECTUM OR APPLY TO EXTERNAL HEMORRHOIDS ONCE DAILY 28 g 2 12/31/2022 4 Active Hydrocortisone (Perianal) 2.5 % External CreamIndications:He morrhoids, external without complications ADMINISTER INTO RECTUM OR APPLY TO EXTERNAL HEMORRHOIDS ONCE DAILY 28 g 2 11/30/2021 3 Discontinu ed(Refill) documented as of this encounter (statuses as of 12/31/2022) Active Problems Problem Noted Date Serrated polyp of colon 09/20/2022 Overview: 7 mm descending colon BMI 38.0-38.9,adult 09/12/2022 Overview: 210 Rectal bleeding 08/09/2022 Last Assessment & Plan: Needs colonoscopy scheduled -CBC Acquired hypothyroidism 06/17/2022 Last Assessment & Plan: TSH ordered Continue Synthroid Palliative care encounter 06/07/2021 Dementia associated with Parkinson's dis ease 05/31/2021 Last Assessment & Plan: Baseline -continue carbidopa levodopa, Lyrica AVF (arteriovenous fistula) 08/16/2020 Dependence on renal dialysis 12/03/2019 Last Assessment & Plan: continue Auryxia , nephrovite History of CVA (cerebrovascular accident ) 12/03/2019 Last Assessment & Plan: Continue aspirin, atorvastatin Personal history of fall 10/21/2019 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 No angina. -continue atorvastatin, baby aspirin. Not on beta-tanner. BP will not tolerate Primary parkinsonism 12/09/2017 Last Assessment & Plan: Continue carbidopa levodopa Rheumatoid arthritis involving both hand s with positive rheumatoid factor 07/18/2016 RENÉ on CPAP 04/03/2015 Last Assessment & Plan: Compliant with CPAP Restless leg syndrome 08/14/2012 Type 2 diabetes mellitus with hemoglobin A1c goal of less than 7.0% 10/23/2011 Overview: ICD-10 update of inactive term Steatohepatitis, non-alcoholic 0 Hypothyroidism due to acquired atrophy o f thyroid 06/27/2009 Meniere's disease, cochlear, active 09/15 ADVANCE DIRECTIVE INFORMATION 08/02/2005 Overview: Yes-advised to bring copy in to be scanned into EMR Dyslipidemia, goal LDL below 100 AYSHA (generalized anxiety disorder) Last Assessment & Plan: Stable on sertraline Mild neurocognitive disorder documented as of this encounter (statuses as of 12/31/2022) Resolved Problems Problem Noted Date Resolved Date Major depressive disorder, recurrent episode, mo derate 08/09/2022 08/09/2022 Last Assessment & Plan: Stable on sertraline Hypothyroidism 05/31/2021 05/27/2022 MDD (major depressive disord er), recurrent, in partial remission 08/16/2020 09/08/2020 Hypothyroidism, unspecified 08/16/202008/16 Body mass index (BMI) of 45.0 to 49.9 in adult 0 09/27/2019 11/25/2019 Overview: Per Obesity protocol Degenerative disease of nervous system, unspecif ied 08/26/2019 08/16/2020 Multiple falls 04/20/2019 11/26/2019 Overview: History of falls on the pl SDH (subdural hematoma) 04/20/2019 08/05/19 Overview: acute Ecchymosis 04/20/2019 09/08/2020 Old myocardial infarct 12/13/2018 9 Morbid obesity with body mas s index (BMI) of 40.0 to 44.9 in adult 12/04/2018 09/30/2019 Overview: Per Obesity protocol Acute heart failure 09/03/2018 12/04/2018 NSTEMI (non-ST elevated myocardial infarction) 0 09/03/2018 01/07/2019 MDD (major depressive disord er), recurrent, in partial remission 08/04/2018 01/18/2020 Diabetes mellitus with stage 3 chronic kidney di sease 06/24/2017 09/30/2019 Overview: Per CKD protocol #1 Chronic kidney disease due to type 2 diabetes me llitus 08/09/2016 06/27/2017 Overview: Per CKD protocol #1 Kidney disease, chronic, stage III (GFR 30-59 ml /min) 07/22/2016 08/07/2017 Overview: Per CKD protocol #1 [...] than 140/90 05/14/2005 06/17/2022 Encounter for long-term (current) use of medicat ions 01/18/2005 02/03/2006 Overview: ICD-10 update of inactive term Tobacco use disorder 08/11/2001 11/23/2015 PURE HYPERCHOLESTEROLEM 02/15/2000 03/02/20 09 Overview: Per Lipid Taxonomy. Allergic rhinitis 02/15/2000 08/05/2019 Overview: acute Menopause 12/06/1998 02/03/2006 ADJ DISORDER W/DEPRES MOOD 12/06/199809/08 (HFpEF) heart failure with preserved ejection fr action 11/26/2019 Overview: More specific code on the pl documented as of this encounter (statuses as of 12/31/2022) Immunizations Name Administration Dates Next Due COVID-19 mRNA, LNP-s, No Pre serve, 2-Dose Series (Pfizer) 01/02/2021,06/21/2020,05/24/2020 COVID-19, mRNA, LNP-s, PF, B ooster, [...] drink = 0.6 oz pur e alcohol) Alcohol Habits Answer Date Recorded How often do you have a drink containing alcohol ? Never 04/21/2019 How many drinks containing a lcohol do you have on a typical day when you are drinking? Not asked How often do you have six or more drinks on one occasion? Not asked Food Insecurity Answer Date Recorded Within the past 12 months, y ou worried that your food would run out before you got money to buy more. Never true 01/21/2019 Within the past 12 months, t he food you bought just didn't last and you didn't have money to get more. Never true 01/21/2019 Sex Assigned at Date Recorded Not on file Job Start Date Occupation [...] encounter Miscellaneous Notes * Telephone Encounter - Bella Rubio MD - 12/31/2022 3:51 PM EDT Signed Prescriptions: Disp Refills Hydrocortisone (Perianal) 2.5 % External C*28 g 2 Sig: ADMINISTER INTO RECTUM OR APPLY TO EXTERNAL HEMORRHOIDS ONCE DAILYAuthorizing Provider: BELLA MORILLO documented in this encounter Plan of Treatment Upcoming Encounters Date Type Specialty Care Team Description 01/17/2023 Office Visit Gastroenterology Ai Hunt CRNP [address] [place] [address] 01/28/2023 Scheduled Telephone [facility] Nurse Triage [address] [place] [address] 02/24/2023 Laboratory Laboratory [place], [address] [place] [address] 02/24/2023 Office Visit Hematology Oncology Nita Pino CRNP [address] [facility] [place] [id number] Scheduled Procedures Name Priority Associated Diagnoses Date/Ti me COLONOSCOPY FLEXIBLE PROXIMA L DIAGNOSTIC Recall Encounter for screening colonoscopy Health Maintenance Due Date Last Done Comments Zoster Vaccines (1 of 2) 12/18/2011 10/23/2011 Depression Screening 01/22/2020 01/21/2019 COVID-19 Vaccine (2022- 4 season) 2022 01/17/2022, 07/23/2021, 01/02/2021, Additional history exists Influenza Vaccine (FLU shot) (#1) 2022 12/29/2021, 05/31/2021, 11/16/2019, Additional history exists TSH 08/11/2023 08/10/2022, 05/15, 08/21/2020, Additional history exists O2 ASSESSMENT COMPLETED IN P AST YEAR FOR COPD 11/21/2023 11/20/2022 Diabetic Foot Exam Discontinued 08/16/2020, 0 08/26/2019, 08/04/2018, Additional history exists Colonoscopy Discontinued 09/20/2022, 11/15, 11/27/2015, Additional history exists Colorectal Cancer Screening Discontinued Cologuard Discontinued Fecal Occult Blood Test Discontinued Sigmoidoscopy Discontinued documented as of this encounter Medical Devices Not on filedocumented as of this encounter Visit Diagnoses Diagnosis Hemorrhoids, external without complications External hemorrhoids without mention of complication documented in this encounter Advance Directives Documents on File Type Date Recorded Patient Surgeon'S Assistant Expl anation Power of Renewable Energy Trader 12/16/2018 10:33 AM Nate r of Renewable Energy Trader Latest Code Status on File Code Status [...] the patient have Health Care Power of Renewable Energy Trader? No Healthcare Agents on File Name Relationship Healthcare Agent Relationshi p Communication Wesley Hassan Spouse Health Care Agent Care Teams Procurement Assistant Relationship Specialty Start Date End Date Bella Morillo MD [address] [place] [address] [place] [address] PCP - General Family Medicine 04/02/19 documented as of this encounter
--- OUTSIDE RECORDS SUMMARY | 2023-01-25 20:37 | External Medical Summary | Summary of Care ---
Author Name Unknown Organization [facility] Address [address] [facility] [place] [address] Phone [phone] Care Team Providers Care Farm Consultant Name Role Phone Bella Morillo MD Primary Care Prov ider Reason for Visit * Reason Comments Medication Refill Encounter Details Date Type Department Care Team (Late st Contact Info) Description 01/14/2023 Refill Cardiology, [facility] [address] [place] [address] Jaodn Piper, Zurdo Tam, DO Allergies No known active allergiesdocumented as of this encounter (statuses as of 01/14/2023) Medications Medication Sig Dispensed Refills Start Date End Date Status ONETOUCH DELICA LANCETS 33G MISC Up to 4 times daily 100 Each 6 11/24/2014 Active Glucose Blood (ONETOUCH ULTRA BLUE) STRP Use as directed 4 times a day as needed (Diabetes). Use up to four times a day as directed 100 Strip 11 02/03/2018 Active Nebulizers (NEBULIZER COMPRESSOR) MISCIndications:DIE CAST DIE MAKER D, group B, by GOLD 2017 classification ([facility]) Inhale via nebulizer. Use as directed. 1 [...] Indications:COPD, group B, by GOLD 2017 classification ([facility]) Inhale by mouth 1 Puff in the [...] WRAP) 30 g 11 11/09/2022 Active Nystatin 738274 UNIT/GM External Powder (Nystop) Apply topically to [...] DAILY 28 g 2 12/31/2022 4 Active Isosorbide Mononitrate ER 30 MG Oral Tablet Extended Release 24 Hour (Imdur) TAKE 1 TABLET BY MOUTH DAILY 90 Tablet 3 01/14/2023 4 Active Isosorbide Mononitrate ER 30 MG Oral Tablet Extended Release 24 Hour (Imdur) TAKE ONE TABLET BY MOUTH DAILY 90 Tablet 3 12/27/2021 3 Discontinu ed(Refill) documented as of this encounter (statuses as of 01/14/2023) Active Problems Problem Noted Date Diagnosed Date [...] as of this encounter (statuses as of 01/14/2023) Resolved Problems Problem Noted Date Diagnosed Date [...] on the pl SDH (subdural hematoma) 04/20/2019 0503/2019 Overview: acute Ecchymosis 04/20/2019 09/08/2020 Old myocardial infarct 12/13/201801/07 Morbid obesity with body mas s index (BMI) of 40.0 to 44.9 in adult 12/04/2018 09/30/2019 Overview: Per Obesity protocol Acute heart failure 09/03/2018 12/05/19 19 NSTEMI (non-ST elevated myoc ardial infarction) 09/03/2018 [...] as of this encounter (statuses as of 01/14/2023) Immunizations Name Administration Dates Next Due COVID-19 [...] Miscellaneous Notes * Telephone Encounter - Bella Morillo MD - 01/14/2023 4:32 PM EDT Signed Prescriptions: Disp Refills Isosorbide Mononitrate ER 30 MG Oral Table*90 Tab*3 Sig: TAKE ONE TABLET BY MOUTH DAILY Authorizing Provider: BELLA MORILLO * Telephone Encounter - Migdalia Maloney CMA - 01/14/2023 10:58 AM EDTPending Prescriptions: Disp Refills Isosorbide Mononitrate ER 30 MG Oral Table*90 Tab*3 Sig: TAKE ONE TABLET BY MOUTH DAILY * Telephone Encounter - Migdalia Maloney CMA - 01/14/2023 10:56 AM EDT See message from cardiology. They want you to take over meds. * Telephone Encounter - Nita Giordano COT - 01/14/2023 10:25 AM EDTPending Prescriptions: Disp Refills Isosorbide Mononitrate ER 30 MG Oral Table*90 Tab*3 Sig: TAKE ONE TABLET BY MOUTH DAILY * Telephone Encounter - Nita Giordano COT - 01/14/2023 10:25 AM EDT Patient has not been seen by cardiology since 2020 and has not responded to attempts to schedule. Defer to PCP for refills/follow up. documented in this encounter Plan of Treatment Upcoming Encounters Date Type Department Care Team (Late st Contact Info) Description 01/17/2023 2:00 PM EDT Office Visit Gastroenterology [address] [place] [address] Ai Hunt CRNP [address] [place] [address] 01/28/2023 11:00 AM EST Scheduled Telephone [facility] [address] [address] [facility] Nurse Triage [address] [place] [address] 02/24/2023 1:00 PM EST Laboratory Laboratory [facility] [place] [address] [place] [phone] [place], [facility] [address] [place] [address] 02/24/2023 2:00 PM EST Office Visit Hematology/Oncology [facility] [place] [address] [place] [address] Nita Pino, JACKSPOOLER [address] [place] [address] Scheduled Procedures Name Priority Associated Diagnoses Date/Ti [...] Documents on File Type Date Recorded Patient Financial Sales Professional Expl anation Power of Salesperson Men[employer] Boys[employer]othing 12/16/2018 10:33 AM Nate r of Salesperson [employer] Latest Code Status on File Code Status [...] the patient have Health Care Power of Salesperson Men'S [employer] Boys[employer] Clothing? No Healthcare Agents on File Name Relationship Healthcare Agent Relationshi p Communication Wesley Hassan Spouse Health Care Agent Care Teams Farm Consultant Relationship Specialty Start Date End Date Bella Morillo MD [address] [place] [address] [place] [address] PCP - General Family Medicine 04/02/19 documented as of this encounter
--- OUTSIDE RECORDS SUMMARY | 2023-01-25 20:38 | External Medical Summary | Summary of Care ---
Author Name Unknown Organization [facility] Address [address] [facility] [place] [address] Phone [phone] Care Team Providers Care Vector Control Assistant Name Role Phone Bella Power MD Primary Care Prov ider Reason for Visit * Reason Onset Date Comments Appointment 12/05/2022 Encounter Details Date Type Department Care Team Description 12/05/2022 Telephone Nephrology, [facility] [address] [facility] [address] Erica Tobar MD [address] [facility] [address] Appointment Allergies No known active allergiesdocumented as of this encounter (statuses as of 12/05/2022) Medications Medication Sig Dispensed Refills Start Date [...] 1 Each 1 11/27/2018 Active DIURETIC TITRATION PLANIndications:Medical Research Scientist sandro heart failure with preserved ejection fraction [...] per day 57 g 3 12/06/2019 Active Calcium Acetate (Phos Binder) 667 MG Oral Capsule (PHOSLO) Take 1 Cap by mouth three times a day with meals. 60 Cap 11 12/10/2019 Active Meclizine HCl 12.5 MG Oral Tablet (ANTIVERT) Take 1 Tablet by mouth 3 times a day as needed. 0 Active Breo Ellipta 200-25 MCG/INH Inhalation Aerosol Powder Breath Activated (fluticasone furoate-vilanterol)I ndications:COPD, group B, by GOLD 2017 classification ([facility]) Inhale by mouth 1 Puff in the morning. 60 Each 0 08/22/2021 Active Isosorbide Mononitrate ER 30 MG Oral Tablet Extended Release 24 Hour (Imdur) TAKE ONE TABLET BY MOUTH DAILY 90 Tablet 3 12/27/2021 3 Active Hydrocortisone (Perianal) 2.5 % External CreamIndications:Hem orrhoids, external without complications ADMINISTER INTO RECTUM OR APPLY TO EXTERNAL HEMORRHOIDS ONCE DAILY 28 g 2 11/30/2021 3 Active Auryxia 1 GM 210 MG(Fe) [...] WRAP) 30 g 11 11/09/2022 Active Nystatin 960868 UNIT/GM External Powder (Nystop) Apply topically to affected area 2 times a day. 60 g 5 11/09/2022 Active Pantoprazole Sodium 20 MG Oral Tablet Delayed Release (Protonix) Take 1 Tablet by mouth in the morning and 1 Tablet in the evening. 180 Tablet 1 11/27/2022 Active Pregabalin 100 MG Oral Capsule (Lyrica)Indications: Primary parkinsonism (HCC) Take 1 capsule twice daily. May take 1 extra capsule after dialysis. 90 Capsule 1 11/26/2022 Active documented as of this encounter (statuses as of 12/05/2022) Active Problems Problem Noted Date Serrated polyp [...] preserved eje ction fraction 03/23/2019 Overview: Echo 2019 EF 50% Grade [...] as of this encounter (statuses as of 12/05/2022) Resolved Problems Problem Noted Date Resolved Date [...] as of this encounter (statuses as of 12/05/2022) Immunizations Name Administration Dates Next Due COVID-19 mRNA, LNP-s, No Pre serve, 2-Dose Series (DealTraction) 01/02/2021,06/21/2020,05/24/2020 COVID-19, mRNA, LNP-s, PF, B ooster, 100mcg/0.5mg (Moderna) 07/23/2021 Covid-19, Mrna, Lnp-s, Pf, B ivalent, 50 Mcg, IM, 12 yrs and above (Moderna) 01/17/2022 Pneumococcal Conjugate Vacc, 13 Valent (Prevnar) 10/28/2014 Pneumococcal Polysaccharide PPV23 (Pneumovax) 03/22/2016,12/04/2009 Seasonal Influenza, PF, 6 mo ns & Above, IM , (Flulaval) 12/29/2021,01/03/2019,12/09/2017 Seasonal Influenza, Quadriva lent Hd (Fluzone [...] encounter Miscellaneous Notes * Telephone Encounter - RENÉ Rodríguez - 12/05/2022 12:04 PM EDT Tried calling Pt at both listed numbers to schedule. No answer, unable to leave VM d/t full mailboxes. * Telephone Encounter - Tiera Oviedo CMA - 12/05/2022 11:42 AM EDT Please assist with appointments. * Telephone Encounter - Rekha Schmid PA-C - 12/05/2022 10:45 AM EDT Agree with plan. Proceed with nurse visit for EKG and 3 day ZIO prior to appt to evaluate HR and bradyarrhythmias. Forward to scheduling to arrange EKG/ZIO and f/u appt after ZIO would be available. Order placed for EKG and ZIO * Telephone Encounter - Erica Tobar MD - 12/05/2022 9:48 AM EDT Patient last seen [facility] Cardiology June 2020 for urgent visit to evaluate heart rates in the 30s and 40s at dialysis. After 7 day Holter, these were attributed to sinus and nonconducted PVCs resulting in low heart rate readings. No concerning arrhythmias on Holter. Last routine cardiology visit March 2020 with six-month follow-up plans. For some reason this visit was not done. Past 2 weeks patient with heart rate again noted in the 40s at dialysis on apical auscultation, occasionally dropping to 30s w/ no sx. Pt w/ at least mild cognitive impairment, so symptom reports and history may not be reliable. Recommend -reestablish cardiology care (former Dr Diop pt) -continue apical auscultation at dialysis Dr Darek Sharp documented in this encounter Plan of Treatment Upcoming Encounters Date Type Specialty Care Team Description 12/16/2022 Telemedicine Hematology Oncology Nita Pino CRNP [address] [place] [address] 12/25/2022 Home Visit [facility] Sallie Lynne RN [address] [place] [address] 01/17/2023 Office Visit Gastroenterology Ai Hunt CRNP [address] [place] [address] 02/24/2023 Laboratory Laboratory [place], [address] [facility] [place] [address] 02/24/2023 Office Visit Hematology Oncology Nita Pino CRNP [address] [place] [address] Scheduled Orders Name Type Priority Associated Diagnoses Orde r Schedule EXTERNAL EKG 2 TO 7 DAYS Holter Routine Bradycardia PVC (premature ventricular contraction) Expected: 12/05/2022 (Approximate), Expires: 12/06/2023 EKG EKG Routine Bradycardia PVC (premature ventricular contraction) Expected: 12/05/2022 (Approximate), Expires: 12/06/2023 Scheduled Procedures Name Priority Associated Diagnoses Date/Ti me COLONOSCOPY FLEXIBLE PROXIMA L DIAGNOSTIC Recall Encounter for screening colonoscopy Health Maintenance Due Date Last Done Comments Zoster Vaccines (1 of 2) 12/18/2011 10/23/2011 Depression Screening 01/22/2020 01/21/2019 Influenza Vaccine (FLU shot) (#1) 2022 12/29/2021, 05/31/2021, 11/16/2019, Additional history exists TSH 08/11/2023 08/10/2022, 05/15, 08/21/2020, Additional history exists O2 ASSESSMENT COMPLETED IN P AST YEAR FOR COPD 11/21/2023 11/20/2022 Diabetic Foot Exam Discontinued 08/16/2020, 0 08/26/2019, 08/04/2018, Additional history exists COVID-19 Vaccine Completed 01/17/2022, 11/2021, 01/02/2021, Additional history exists Colonoscopy Discontinued 09/20/2022, 11/15, 11/27/2015, Additional history exists Colorectal Cancer Screening Discontinued Cologuard Discontinued Fecal Occult Blood Test Discontinued Sigmoidoscopy Discontinued documented as of this encounter Medical Devices Not on filedocumented as of this encounter Visit Diagnoses Diagnosis Bradycardia- Primary Other specified cardiac dysrhythmias PVC (premature ventricular contraction) Other premature beats documented in this encounter Advance Directives Documents on File Type Date Recorded Patient Housecalls Nurse Expl anation Power of It Risk Analyst 12/16/2018 10:33 AM Nate r of It Risk Analyst Latest Code Status on File Code Status [...] the patient have Health Care Power of It Risk Analyst? No Healthcare Agents on File Name Relationship Healthcare Agent Relationshi p Communication Wesley Lee Leighaurora Spouse Health Care Agent Care Teams Vector Control Assistant Relationship Specialty Start Date End Date Bella Power MD [address] [place] [address] [place] [address] PCP - General Family Medicine 04/02/19 documented as of this encounter
--- OUTSIDE RECORDS SUMMARY | 2023-01-25 20:38 | External Medical Summary | Summary of Care ---
Author Name Unknown Organization [facility] Address [address] [facility] [place] [address] Phone [phone] Care Team Providers Care Vinyl Installer Name Role Phone Bella Power MD Primary Care Prov ider Reason for Visit * Reason Onset Date Comments Hospital Follow-Up 09/18/2022 Encounter Details Date Type Department Care Team Description 09/18/2022 Telephone General Internal Medicine [facility] [place] [address] [facility] [address] Bella Power MD [address] [place] [address] [place] [address] Hospital Follow-Up Allergies No known active allergiesdocumented as of this encounter (statuses as of 12/18/2022) Medications Medication Sig Dispensed Refills Start Date [...] 1 Each 1 11/27/2018 Active DIURETIC TITRATION PLANIndications:Bridge Maintenance Worker sandro heart failure with preserved ejection fraction [...] ndications:COPD, group B, by GOLD 2017 classification ([facility]) Inhale by mouth 1 Puff in the [...] MEALS 90 Tablet 5 09/14/2022 4 Active documented as of this encounter (statuses as of 12/18/2022) Active Problems Problem Noted Date Serrated polyp [...] as of this encounter (statuses as of 12/18/2022) Resolved Problems Problem Noted Date Resolved Date [...] as of this encounter (statuses as of 12/18/2022) Immunizations Name Administration Dates Next Due COVID-19 [...] encounter Miscellaneous Notes * Telephone Encounter - Omero Chiu RN - 09/18/2022 11:39 AM EDT Call placed and message left on VM to patient to inform timing to arrive at [facility] tomorrow (09/19) fordirect admission. Patient is needed to arrive at 0700 as patient will have dialysis at [facility] at 0800. documented in this encounter Plan of Treatment Upcoming Encounters Date Type Specialty Care Team Description 12/25/2022 Home Visit [facility] Sallie Lynne RN [address] [place] [address] 01/17/2023 Office Visit Gastroenterology Ai Hunt CRNP [address] [place] [address] 02/24/2023 Laboratory Laboratory [place], Lab Scenery [address] [place] [address] 02/24/2023 Office Visit Hematology Oncology Nita Pino CRNP 400 [facility] [place] [address] Scheduled Procedures Name Priority Associated Diagnoses [...] Documents on File Type Date Recorded Patient Model And Mold Maker Plaster Expl anation Power of Web Production Manager 12/16/2018 10:33 AM Nate r of Web Production Manager Latest Code Status on File Code Status [...] the patient have Health Care Power of Web Production Manager? No Healthcare Agents on File Name Relationship Healthcare Agent Relationshi p Communication Wesley Hassan Spouse Health Care Agent Care Teams Vinyl Installer Relationship Specialty Start Date End Date Bella Power MD [address] [place] [address] [place] [phone] PCP - General Family Medicine 04/02/19 documented as of this encounter
--- OUTSIDE RECORDS SUMMARY | 2023-01-25 20:38 | External Medical Summary | Summary of Care ---
Author Name Unknown Organization [facility] Address [address] [facility] [place] [address] Phone [phone] Care Team Providers Care Tire Rebuilder Name Role Phone Bella Power MD Primary Care Prov ider Reason for Visit * Reason Onset Date Comments Appointment 12/05/2022 Encounter Details Date Type Department Care Team Description 12/05/2022 Telephone Nephrology, [facility] 200 [facility] [place] [address] Erica Tobar MD 200 [facility] [place] [address] Appointment Allergies No known active allergiesdocumented as of this encounter (statuses as of 12/06/2022) Medications Medication Sig Dispensed Refills Start Date [...] 1 Each 1 11/27/2018 Active DIURETIC TITRATION PLANIndications:Stapler Hand sandro heart failure with preserved ejection fraction [...] ndications:COPD, group B, by GOLD 2017 classification ([facility]) Inhale by mouth 1 Puff [...] WRAP) 30 g 11 11/09/2022 Active Nystatin 231679 UNIT/GM External Powder (Nystop) Apply topically to [...] as of this encounter (statuses as of 12/06/2022) Active Problems Problem Noted Date Serrated polyp [...] as of this encounter (statuses as of 12/06/2022) Resolved Problems Problem Noted Date Resolved Date [...] as of this encounter (statuses as of 12/06/2022) Immunizations Name Administration Dates Next Due COVID-19 mRNA, LNP-s, No Pre serve, 2-Dose Series ([employer]) 01/02/2021,06/21/2020,05/24/2020 COVID-19, mRNA, LNP-s, PF, B ooster, 100mcg/0.5mg (Moderna) 07/23/2021 Covid-19, Mrna, Lnp-s, Pf, B ivalent, 50 Mcg, IM, 12 yrs and above (Moderna) 01/17/2022 Diptheria/Tetanus (Adult) 12/06/1998 Pneumococcal Conjugate Vacc, 13 Valent (Prevnar) 10/28/2014 Pneumococcal Polysaccharide PPV23 (Pneumovax) 03/22/2016,12/04/2009 Seasonal Influenza, PF, 6 mo ns & Above, IM , (Flulaval) 12/29/2021,01/03/2019,12/09/2017 Seasonal Influenza, Quadriva lent Hd (Fluzone Hd) 05/31/2021 Seasonal Influenza, Quadriva lent Hd, 65+ Yrs 11/16/2019 Seasonal Influenza, Quadriva lent, No Preserve, IM 11/25/2016,11/23/2015,12/26/2014 Seasonal Influenza, Split, I IV3, With Preserve, Inj 11/22/2013,12/25/2012,12/24/2011,12/04,12/08/2008,12/25/2007,01/19/2007 ,01/21/2006,01/08/2005,12/30/2002,12/16,02/17/2001,02/15/2000, 9 TDAP (age 11 and older)(Adacel) 06/27/2009 Varicella [...] encounter Miscellaneous Notes * Telephone Encounter - Rachael Carter LPN - 12/06/2022 10:37 AM EDT Spoke with and explained EKG & zio monitor. He is agreeable, please set up appts as requested. * Telephone Encounter - RENÉ Flores - 12/05/2022 1:27 PM EDT Pt called back, wants a call at [phone] explaining exactly why the EKG needs to be done. Please advise. * Telephone Encounter - RENÉ Rodríguez - [...] 12/05/2022 9:48 AM EDT Patient last seen [facility] Cardiology June 2020 for urgent visit [...] Telemedicine Hematology Oncology Nita Pino CRNP [address] [place] [address] 12/25/2022 Home Visit [facility] at Home Sallie Lynne RN [address] [place] [address] 01/17/2023 Office Visit Gastroenterology Ai Hunt CRNP [address] [place] [address] 02/24/2023 Laboratory Laboratory [place], Lab Scenery [address] [facility] [address] 02/24/2023 Office Visit Hematology Oncology Nita Pino CRNP 400 [facility] [place] [id number] Scheduled Orders Name Type Priority Associated Diagnoses [...] Documents on File Type Date Recorded Patient Distillery Miller Helper Expl anation Power of Chef French 12/16/2018 10:33 AM Nate r of Chef French Latest Code Status on File Code Status [...] the patient have Health Care Power of Chef French? No Healthcare Agents on File Name Relationship Healthcare Agent Relationshi p Communication Wesley Hassan Spouse Health Care Agent Care Teams Tire Rebuilder Relationship Specialty Start Date End Date Bella Power MD [address] [place] [address] [place] [phone] PCP - General Family Medicine 04/02/19 documented as of this encounter
--- OUTSIDE RECORDS SUMMARY | 2023-01-25 20:38 | External Medical Summary | Summary of Care ---
Author Name Unknown Organization [facility] [address] [place] [address] Phone [phone] Care Team Providers Care Preventive Medicine Physician Name Role Phone Bella Power MD Primary Care Prov ider Reason for Visit * Reason Onset Date Comments Appointment 11/27/2022 Encounter Details Date Type Department Care Team Description 11/27/2022 Telephone Hematology/Oncology [facility] [place] [address] [place] [address] Nita Pino CRNP 400 [place] [address] Appointment Allergies No known active allergiesdocumented as of this encounter (statuses as of 11/28/2022) Medications Medication Sig Dispensed Refills Start Date [...] 1 Each 1 11/27/2018 Active DIURETIC TITRATION PLANIndications:First Line Supervisor sandro heart failure with preserved ejection fraction [...] GOLD 2017 classification ([facility]) Inhale by mouth 1 Puff in the [...] WRAP) 30 g 11 11/09/2022 Active Nystatin 978240 UNIT/GM External Powder (Nystop) Apply topically to [...] as of this encounter (statuses as of 11/28/2022) Active Problems Problem Noted Date Serrated polyp [...] as of this encounter (statuses as of 11/28/2022) Resolved Problems Problem Noted Date Resolved Date [...] as of this encounter (statuses as of 11/28/2022) Immunizations Name Administration Dates Next Due COVID-19 mRNA, LNP-s, No Pre serve, 2-Dose Series ([employer]) 01/02/2021,06/21/2020,05/24/2020 COVID-19, mRNA, LNP-s, PF, B ooster, [...] Miscellaneous Notes * Telephone Encounter - RENÉ Chris - 11/28/2022 4:05 PM EDT Patient is scheduled for 12/16 at 8:00 am for her telephone visit and is scheduled for 02/24 for herlab work and follow up visit. Thank you! * Telephone Encounter - RENÉ Morrison - 11/28/2022 3:53 PM EDT Jennifer from scheduling will be scheduling up coming appts for patient. * Telephone Encounter - RENÉ Morrison - 11/28/2022 8:31 AM EDT Called patients Wesley sawyer and he is at dialysis and stated that he will have to call back later today. Will await this call. * Telephone Encounter - RENÉ Aldana - 11/27/2022 3:21 PM EDT We received a call from [facility] Wesley. He was returning the office's call. I did try to get him transferred over the senior front end engineer but unfortunately was not able to get through. Please give Wesley a call back at [phone]. Thank you! * Telephone Encounter - RENÉ Morrison - 11/27/2022 1:58 PM EDT Called and spoke to patients and they were out shopping. does all scheduling for patient. He was given phone # to call back to schedule appts. Will await for return call. documented in this encounter Plan of Treatment Upcoming Encounters Date Type Specialty Care Team Description 12/16/2022 Telemedicine [facility]ematology Oncology [facility] [place] [address] 12/25/2022 [facility] Sallie Lynne RN [address] [place] [address] 01/17/2023 Office Visit Gastroenterology Ai Hunt CRNP [address] [place] [address] 02/28/2023 Laboratory Laboratory [place], Lab Scenery [address] [facility] [address] Scheduled Procedures Name Priority Associated Diagnoses Date/Ti [...] Documents on File Type Date Recorded Patient Strap Cutting Machine Operator Expl anation Power of Rn Gastroenterology 12/16/2018 10:33 AM Nate r of Rn Gastroenterology Latest Code Status on File Code Status [...] the patient have Health Care Power of Rn Gastroenterology? No Healthcare Agents on File Name Relationship Healthcare Agent Relationshi p Communication Wesley Hassan Spouse Health Care Agent Care Teams Preventive Medicine Physician Relationship Specialty Start Date End Date Bella Power MD [address] [place] [address] [place] [id number] PCP - General Family Medicine 04/02/19 documented as of this encounter
--- OUTSIDE RECORDS SUMMARY | 2023-01-25 20:38 | External Medical Summary | Summary of Care ---
Author Name Unknown Organization [facility] Address [address] [facility] [place] [address] Phone [phone] Care Team Providers Care Superintendent Concrete Mixing Plant Name Role Phone Bella Power MD Primary Care Prov ider Reason for Visit * Reason Onset Date Comments Test Results 12/24/2022 Encounter Details Date Type Department Care Team Description 12/24/2022 Telephone Nephrology, [facility] 200 [facility] [place] [address] Erica Tobar MD 200 [facility] [place] [address] Test Results Allergies No known active allergiesdocumented as of this encounter (statuses as of 12/24/2022) Medications Medication Sig Dispensed Refills Start Date [...] 1 Each 1 11/27/2018 Active DIURETIC TITRATION PLANIndications:Wedding Day Coordinator sandro heart failure with preserved ejection fraction [...] ndications:COPD, group B, by GOLD 2017 classification ([facility]) Inhale by mouth 1 Puff [...] WRAP) 30 g 11 11/09/2022 Active Nystatin [id number] UNIT/GM External Powder (Nystop) Apply topically to [...] as of this encounter (statuses as of 12/24/2022) Active Problems Problem Noted Date Serrated polyp [...] as of this encounter (statuses as of 12/24/2022) Resolved Problems Problem Noted Date Resolved Date [...] disorder 08/11/2001 11/23/2015 PURE HYPERCHOLESTEROLEM 02/15/2000 03/02/20 Overview: Per Lipid Taxonomy. Allergic rhinitis 02/15/2000 08/05/2019 Overview: acute Menopause 12/06/1998 02/03/2006 ADJ DISORDER W/DEPRES MOOD 12/06/199809/08 (HFpEF) heart failure with preserved ejection fr action 11/26/2019 Overview: More specific code on the pl documented as of this encounter (statuses as of 12/24/2022) Immunizations Name Administration Dates Next Due COVID-19 mRNA, LNP-s, No Pre serve, 2-Dose Series ([employer]) 01/02/2021,06/21/2020,05/24/2020 COVID-19, mRNA, LNP-s, PF, B ooster, [...] encounter Miscellaneous Notes * Telephone Encounter - Zeynep Miranda RN - 12/24/2022 8:48 AM EDT Message faxed to [facility]. * Telephone Encounter - Zeynep Miranda RN - 12/24/2022 8:48 AM EDT ----- Message from Erica Tobar MD sent at 12/23/2022 11:16 PM EDT ----- Pls print this mssg and fax to [facility] ----- Message ----- From: Rekha Schmid PA-C Sent: 12/23/2022 4:29 PM EDT To: Erica Tobar MD, # Monitor completed due to concerns regarding bradycardia with dialysis Monitor results reviewed Normal sinus rhythm with average HR of 66. The slowest HR was 51. She had frequent PVC's (about 7% burden). This is known and similar on past monitors. No symptoms reported. PVC's are not conducted giving a falsely low HR at dialysis. HR needs to be checked apically for accurate reading. No concerning findings. No pauses. No changes at this time FYI to Dr. Tobar. documented in this encounter Plan of Treatment Upcoming Encounters Date Type Specialty Care Team Description 12/25/2022 Home Visit [facility] Sallie Lynne RN [address] [facility] [place] [address] 01/17/2023 Office Visit Gastroenterology Ai Hunt CRNP [address] [place] [address] 02/24/2023 Laboratory Laboratory [place], Lab Scenery [address] [facility] [address] 02/24/2023 Office Visit Hematology Oncology Nita Pino CRNP [address] [place] [address] Scheduled Procedures Name Priority Associated Diagnoses Date/Ti [...] Documents on File Type Date Recorded Patient Vegetable Farm Manager Expl anation Power of House Moving Supervisor 12/16/2018 10:33 AM Nate r of House Moving Supervisor Latest Code Status on File Code Status [...] the patient have Health Care Power of House Moving Supervisor? No Healthcare Agents on File Name Relationship Healthcare Agent Relationshi p Communication Wesley Hassan Spouse Health Care Agent Care Teams Superintendent Concrete Mixing Plant Relationship Specialty Start Date End Date Bella Power MD [address] [place] [address] [place] [phone] PCP - General Family Medicine 04/02/19 documented as of this encounter
--- OUTSIDE RECORDS SUMMARY | 2023-01-25 20:38 | External Medical Summary | Summary of Care ---
Author Name Unknown Organization [facility] Address [address] [facility] [place] [address] Phone [phone] Care Team Providers Care Linemarker Name Role Phone Bella Power MD Primary Care Prov ider Encounter Details Date Type Department Care Team Description 12/27/2022 Telephone Cardiology, [facility] [address] [place] [address] Rekha Schmid PA-C [address] [place] [address] Allergies No known active allergiesdocumented as of this encounter (statuses as of 12/27/2022) Medications Medication Sig Dispensed Refills Start Date [...] 1 Each 1 11/27/2018 Active DIURETIC TITRATION PLANIndications:Correctional Officer sandro heart failure with preserved ejection fraction [...] group B, by GOLD 2017 classification ([facility]) Inhale by mouth 1 Puff in the [...] WRAP) 30 g 11 11/09/2022 Active Nystatin 154627 UNIT/GM External Powder (Nystop) Apply topically to [...] as of this encounter (statuses as of 12/27/2022) Active Problems Problem Noted Date Serrated polyp [...] hand s with positive rheumatoid factor 07/18/2016 REÉN on CPAP 04/03/2015 Last Assessment & Plan: [...] into EMR Dyslipidemia, goal LDL below 100 AYHSA (generalized anxiety disorder) Last Assessment & Plan: Stable on sertraline Mild neurocognitive disorder documented as of this encounter (statuses as of 12/27/2022) Resolved Problems Problem Noted Date Resolved Date [...] as of this encounter (statuses as of 12/27/2022) Immunizations Name Administration Dates Next Due COVID-19 mRNA, LNP-s, No Pre serve, 2-Dose Series ([employer]) 01/02/2021,06/21/2020,05/24/2020 COVID-19, mRNA, LNP-s, PF, B ooster, [...] encounter Miscellaneous Notes * Telephone Encounter - Jennifer Lopez LPN - 12/27/2022 11:29 AM EDT Letter sent * Telephone Encounter - Jennifer Lopez LPN - 12/27/2022 11:29 AM EDT ----- Message from Rekha Schmid PA-C sent at 12/23/2022 4:29 PM EDT ----- Monitor completed due to concerns regarding bradycardia [...] Office Visit Gastroenterology Ai Hunt CRNP [address] [place] [address] 01/28/2023 Scheduled Telephone [facility] Nurse Triage [address] [place] [address] 02/24/2023 Laboratory Laboratory [place], Lab Scenery [address] [place], [place] [address] 02/24/2023 Office Visit Hematology Oncology Nita Pino CRNP [address] [place] [address] Scheduled Procedures Name Priority Associated Diagnoses Date/Ti me COLONOSCOPY FLEXIBLE PROXIMA L DIAGNOSTIC Recall Encounter for screening colonoscopy Health Maintenance Due Date Last Done Comments Zoster Vaccines (1 of 2) 12/18/2011 10/23/2011 Depression Screening 01/22/2020 01/21/2019 COVID-19 Vaccine (2022-04 4 season) 2022 01/17/2022, 07/23/2021, 01/02/2021, Additional [...] Documents on File Type Date Recorded Patient Customer Solutions Teammate Expl anation Power of Tuberculosis Specialist 12/16/2018 10:33 AM Nate r of Tuberculosis Specialist Latest Code Status on File Code Status [...] the patient have Health Care Power of Tuberculosis Specialist? No Healthcare Agents on File Name Relationship Healthcare Agent Relationshi p Communication Wesley E Sonya Spouse Health Care Agent Care Teams Linemarker Relationship Specialty Start Date End Date Bella Power MD [address] [place] [address] [place] [phone] PCP - General Family Medicine 04/02/19 documented as of this encounter
--- OUTSIDE RECORDS SUMMARY | 2023-01-25 20:38 | External Medical Summary | Summary of Care ---
Author Name Unknown Organization [facility] Address [address] [facility] [place] [address] Phone [phone] Care Team Providers Care Police Clerk Name Role Phone Bella Power MD Primary Care Prov ider Reason for Visit * Reason Onset Date Comments Appointment 12/05/2022 Encounter Details Date Type Department Care Team Description 12/05/2022 Telephone Nephrology, [facility] 200 [facility] [place] [address] Erica Tobar MD 200 [facility] [place] [address] Appointment Allergies No known active allergiesdocumented as [...] 1 Each 1 11/27/2018 Active DIURETIC TITRATION PLANIndications:Air Motor Repairer sandro heart failure with preserved ejection fraction [...] ndications:COPD, group B, by GOLD 2017 classification ([facility]) Inhale by mouth 1 Puff [...] WRAP) 30 g 11 11/09/2022 Active Nystatin 103529 UNIT/GM External Powder (Nystop) Apply topically to [...] mRNA, LNP-s, No Pre serve, 2-Dose Series ([employer]) 01/02/2021,06/21/2020,05/24/2020 COVID-19, mRNA, LNP-s, PF, B ooster, [...] Miscellaneous Notes * Telephone Encounter - RENÉ Flores - 12/05/2022 1:27 PM EDT Pt called back, wants a call at [phone] explaining exactly why the EKG needs to [...] 12/05/2022 9:48 AM EDT Patient last seen [facility] Cardiology June 2020 for urgent visit [...] Telemedicine Hematology Oncology Nita Pino CRNP 400 [facility] [place] [address] 12/25/2022 Home Visit [facility] at Home Sallie Lynne RN [address] [place] [address] 01/17/2023 Office Visit Gastroenterology Ai Hunt CRNP [address] [place] [address] 02/24/2023 Laboratory Laboratory [place], Lab Scenery [address] [place] [address] 02/24/2023 Office Visit Hematology Oncology Nita Pino CRNP 400 [facility] [place] [phone] Scheduled Orders Name Type Priority Associated Diagnoses [...] Documents on File Type Date Recorded Patient Marquetry Worker Expl anation Power of Rubber Washer 12/16/2018 10:33 AM Nate r of Rubber Washer Latest Code Status on File Code Status [...] the patient have Health Care Power of Rubber Washer? No Healthcare Agents on File Name Relationship Healthcare Agent Relationshi p Communication Wesley Hassan Spouse Health Care Agent Care Teams Police Clerk Relationship Specialty Start Date End Date Bella Power MD [address] [place] [address] [place] [phone] PCP - General Family Medicine 04/02/19 documented as of this encounter
--- OUTSIDE RECORDS SUMMARY | 2023-01-25 20:38 | External Medical Summary | Summary of Care ---
Author Name Unknown Organization [facility] Address [address] [address] Phone [phone] Care Team Providers Care Cut Off Tender Glass Name Role Phone Bella Power MD Primary Care Prov ider Reason for Visit * Reason Onset Date Comments Appointment 11/27/2022 Encounter Details Date Type Department Care Team Description 11/27/2022 Telephone Hematology/Oncology [facility] [address] [place] [address] Nita Pino CRNP [address] [place] [address] Appointment Allergies No known active allergiesdocumented as of this encounter (statuses as of 11/29/2022) Medications Medication Sig Dispensed Refills Start Date [...] 1 Each 1 11/27/2018 Active DIURETIC TITRATION PLANIndications:Collections And Archives Director sandro heart failure with preserved ejection fraction [...] B, by GOLD 2017 classification ([facility]) Inhale by mouth 1 Puff [...] WRAP) 30 g 11 11/09/2022 Active Nystatin 680700 UNIT/GM External Powder (Nystop) Apply topically to [...] as of this encounter (statuses as of 11/29/2022) Active Problems Problem Noted Date Serrated polyp [...] as of this encounter (statuses as of 11/29/2022) Resolved Problems Problem Noted Date Resolved Date [...] as of this encounter (statuses as of 11/29/2022) Immunizations Name Administration Dates Next Due COVID-19 mRNA, LNP-s, No Pre serve, 2-Dose Series (AroundWire) 01/02/2021,06/21/2020,05/24/2020 COVID-19, mRNA, LNP-s, PF, B ooster, [...] * Telephone Encounter - RENÉ Chris - 11/29/2022 11:23 AM EDT Called and left a message for Wesley. I had to reschedule the patient from 02/28 at 2:00 pm to 02/24 at 2:00 pm with labs before and called to make him aware. Thank you. * Telephone Encounter - RENÉ Chris - 11/28/2022 4:05 PM EDT Patient is scheduled for 12/16 at 8:00 am for her telephone visit and is scheduled for 02/24 for herlab work and follow up visit. Thank you! * Telephone Encounter - RENÉ Morrison - 11/28/2022 3:53 PM EDT Jennifer Dominique from scheduling will be scheduling up coming appts for patient. * Telephone Encounter - RENÉ Morrison - 11/28/2022 8:31 AM EDT Called patients Wesley back and he is at dialysis and stated that he will have to call back later today. Will await this call. * Telephone Encounter - RENÉ Aldana - 11/27/2022 3:21 PM EDT We received a call from [facility] Wesley. He was returning the office's call. I did try to get him transferred over the front office coordinator but unfortunately was not able to get through. Please give Wesley a call back at [phone]. Thank you! * Telephone Encounter - RENÉ [...] 12/16/2022 Telemedicine Hematology Oncology Nita Pino CRNP [address] [place] [address] [place] [address] 12/25/2022 Home Visit [facility] Sallie Lynne RN [address] [place] [address] 01/17/2023 Office Visit Gastroenterology Ai Hunt CRNP [address] [place] [address] 02/24/2023 Laboratory Laboratory [place], Lab Scenery [address] [place] [place] [address] 02/24/2023 Office Visit Hematology Oncology [facility]ino [facility] [address] [facility] [place] [phone] Scheduled Procedures Name Priority Associated Diagnoses Date/Ti [...] Documents on File Type Date Recorded Patient Geothermal Plant Manager Expl anation Power of Testing Director 12/16/2018 10:33 AM Nate r of Testing Director Latest Code Status on File Code Status [...] the patient have Health Care Power of Testing Director? No Healthcare Agents on File Name Relationship Healthcare Agent Relationshi p Communication Wesley Hassan Spouse Health Care Agent Care Teams Cut Off Tender Glass Relationship Specialty Start Date End Date Bella Power MD [address] [place] [address] [place] [phone] PCP - General Family Medicine 04/02/19 documented as of this encounter
--- OUTSIDE RECORDS SUMMARY | 2023-01-25 20:38 | External Medical Summary | Summary of Care ---
Author Name Unknown Organization [facility] Address [address] [facility] [place] [address] Phone [phone] Care Team Providers Care Customer Logistics Manager Name Role Phone Bella Power MD Primary Care Prov ider Encounter Details Date Type Department Care Team Description 09/26/2022 Telephone Nephrology [address] [place] [address] Erica Tobar MD [address] [facility] [place] [address] Allergies No known active allergiesdocumented as of this encounter (statuses as of 12/26/2022) Medications Medication Sig Dispensed Refills Start Date End Date Status ONETOUCH DELICA LANCETS 33G MISC Up to 4 times daily 100 Each 6 11/24/2014 Active Glucose Blood (ONETOUCH ULTRA BLUE) STRP Use as directed 4 times a day as needed (Diabetes). Use up to four times a day as directed 100 Strip 11 02/03/2018 Active Nebulizers (NEBULIZER COMPRESSOR) MISCIndications:SUPERVISOR VAT HOUSE D, group B, by GOLD 2017 classification ([facility]) Inhale via nebulizer. Use as directed. 1 Each 11/27/2018 Active DIURETIC TITRATION PLANIndications:Chr onic heart [...] Indications:COPD, group B, by GOLD 2017 classification ([facility]) Inhale by mouth 1 Puff in the morning. 60 Each 0 08/22/2021 Active Isosorbide Mononitrate ER 30 MG Oral Tablet Extended Release 24 Hour (Imdur) TAKE ONE TABLET BY MOUTH DAILY 90 Tablet 3 12/27/2021 01/09/20 23 Active Auryxia 1 GM 210 MG(Fe) Oral [...] CAPSULE BEFORE BEDTIME 60 Capsule 5 08/06/2022 08/06/19 24 Active Sertraline HCl 100 MG Oral Tablet (Zoloft) TAKE ONE TABLET BY MOUTH IN THE MORNING 30 Tablet 5 08/21/2022 08/21/19 24 Active Levothyroxine Sodium 125 MCG Oral Tablet (Levoxyl) TAKE 1 TABLET BY MOUTH DAILY AT LEAST 30 MINUTES PRIOR TO FIRST MEAL OF THE DAY OR OTHER MEDICATIONS. 90 Tablet 3 08/21/2022 08/21/19 24 Active Atorvastatin Calcium 80 MG Oral Tablet (Lipitor) TAKE 1 TABLET BY MOUTH DAILY. 90 Tablet 1 08/21/2022 08/21/19 24 Active Mupirocin 2 % External Ointment (Bactroban) apply one application externally twice daily 22 g 0 09/09/2022 Active Carbidopa-Levodopa 25-100 MG Oral Tablet (Sinemet) TAKE ONE TABLET BY MOUTH THREE TIMES A DAY WITH MEALS 90 Tablet 5 09/14/2022 09/14/19 24 Active zoster vac recomb adjuvanted (SHINGRIX) 50 MCG/0.5ML injectionIndication s:Need for vaccination for zoster Inject 0.5 mL into a large muscle now and repeat dose in 60 to 180 days 1 Each 1 10/26/2019 10/04/19 23 Discontinue d(Patient preference/ discontinua tion) Hydrocortisone (Perianal) 2.5 % External CreamIndications:He morrhoids, external without complications ADMINISTER INTO RECTUM OR APPLY TO EXTERNAL HEMORRHOIDS ONCE DAILY 28 g 2 11/30/2021 12/08/19 23 Pantoprazole Sodium 20 MG Oral Tablet Delayed Release (Protonix) Take 1 Tablet by mouth in the morning and 1 Tablet in the evening. 180 Tablet 1 04/15/2022 11/27/19 23 Discontinue d(Refill) Lidocaine-Prilocain e 2.5-2.5 % External Cream (Emla) APPLY SMALL AMOUNT TO ACCESS SITE (AVF) 1 TO 2 HOURS BEFORE DIALYSIS. COVER WITH OCCLUSIVE DRESSING (SARAN WRAP) 0 05/11/2022 11/09/19 23 Discontinue d(Refill) Pregabalin 100 MG Oral Capsule (Lyrica)Indications :Primary parkinsonism Take 1 capsule twice daily. May take 1 extra capsule after dialysis. 90 Capsule 1 08/22/2022 11/27/19 23 Discontinue d(Refill) Nystatin 460088 UNIT/GM External Powder (Nystop) apply one application externally twice daily 30 g 0 09/09/2022 11/10/19 23 Discontinue d(Refill) documented as of this encounter (statuses as of 12/26/2022) Active Problems Problem Noted Date Serrated polyp [...] as of this encounter (statuses as of 12/26/2022) Resolved Problems Problem Noted Date Resolved Date [...] disease due to type 2 diabetes me cathyitus 08/09/2016 06/27/2017 Overview: Per CKD protocol #1 [...] as of this encounter (statuses as of 12/26/2022) Immunizations Name Administration Dates Next Due COVID-19 mRNA, LNP-s, No Pre serve, 2-Dose Series (Schedulize) 01/02/2021,06/21/2020,05/24/2020 COVID-19, mRNA, LNP-s, PF, B ooster, [...] (15 years old or older) No 04/20/19 Cognitive Status Response Date of Assessm ent Because of a physical, menta l, or emotional condition, do you have serious difficulty concentrating, remembering, or making decisions? (5 years old or older No 04/20/2019 documented as of this encounter Miscellaneous Notes * Telephone Encounter - Bella Rubio MD - 09/27/2022 9:27 AM EDT GI: perhaps capsule endoscopy as next step? She has anemia and normal coags, No definitive etiologyidentified after EGD and colonoscopy. GAH/CM: I agree with nephrology, patient's has been expressing the same feeling of patient's care needs exceeding what he can provide at home and has asked me multiple times about placement in care facility. CM please discuss with family and explore options for placement. * Telephone Encounter - Erica Tobar MD - 09/26/2022 11:28 AM EDT 09/20 [facility] colonoscopy report and path > 7 mm sessile polyp fully excised; path report cannot r/o sessile serrated adenoma Pt reports ongoing rectal bleeding in toilet. Hemodynamically stable at HD and 09/24 hgb is 10.0 (improved) Note also per acute case mgt [facility] /pt reported no extra care needs > whereas had been reporting to me and to dialysis staff for > [address] pt in appropriate facility as he is exhausted by her care at home >>have not discussed above pathology results w/ pt or her >>defer to GI and /or PCP for next steps re rectal bleeding/above pathology >>will ask connection worker and RN to f/u w/ /pt regarding whether placement still desired or not documented in this encounter Plan of Treatment Upcoming Encounters Date Type Specialty Care Team Description 01/17/2023 Office Visit Gastroenterology Ai Hunt CRNP [address] [facility] [place] [address] 01/28/2023 Scheduled Telephone [facility] T[facility] [address] [place] [address] 02/24/2023 Laboratory Laboratory [place], Lab Scenery [address] [place] [address] 02/24/2023 Office Visit Hematology Oncology Nita Pino CRNP [address] [place] [address] Scheduled Procedures Name Priority Associated Diagnoses Date/Ti [...] Documents on File Type Date Recorded Patient Computer Science Teacher Expl anation Power of Busher Helper 12/16/2018 10:33 AM Nate r of Busher Helper Latest Code Status on File Code Status [...] the patient have Health Care Power of Busher Helper? No Healthcare Agents on File Name Relationship Healthcare Agent Relationshi p Communication Wesley Hassan Spouse Health Care Agent Care Teams Customer Logistics Manager Relationship Specialty Start Date End Date Bella Power MD [address] [place] [address] [place] [address] PCP - General Family Medicine 04/02/19 documented as of this encounter
--- OUTSIDE RECORDS SUMMARY | 2023-01-25 20:38 | External Medical Summary | Summary of Care ---
Author Name Unknown Organization [facility] Address [address] [facility] [place] [address] Phone [phone] Care Team Providers Care Patient Financial Services Specialist Name Role Phone Bella Power MD Primary Care Prov ider Reason for Visit * Reason Comments Follow Up Encounter Details Date Type Department Care Team Description 12/16/2022 Telemedicine [facility]ology[facility] [address] [facility] [id number] Nita Pino CRNP [address] [place] [address] Macrocytic anemia*; ESRD on dialysis (HCC) Allergies No known active allergiesdocumented as of this encounter (statuses as of 12/30/2022) Medications Medication Sig Dispensed Refills Start Date [...] , group B, by GOLD 2017 classification ([facility]) Inhale via nebulizer. Use as directed. 1 Each 1 11/27/2018 Active DIURETIC TITRATION PLANIndications:Environmental Coordinator sandro heart failure with preserved ejection [...] group B, by GOLD 2017 classification ([facility]) Inhale by mouth 1 Puff in the [...] WRAP) 30 g 11 11/09/2022 Active Nystatin 301580 UNIT/GM External Powder (Nystop) Apply topically to [...] as of this encounter (statuses as of 12/30/2022) Active Problems Problem Noted Date Serrated polyp [...] as of this encounter (statuses as of 12/30/2022) Resolved Problems Problem Noted Date Resolved Date [...] as of this encounter (statuses as of 12/30/2022) Immunizations Name Administration Dates Next Due COVID-19 mRNA, LNP-s, No Pre serve, 2-Dose Series ([employer]) 01/02/2021,06/21/2020,05/24/2020 COVID-19, mRNA, LNP-s, PF, B ooster, [...] No 04/20/2019 documented as of this encounter Progress Notes * TRINITY White - 12/16/2022 4:30 PM EDT Hematology/Oncology Telephone Note [facility] Name: Kami Hassan Date: 12/16/2022 CHIEF COMPLAINT: Kami Hassan is a 77 year old female patient of Dr. Gonzalez completing a telephone visit in lieu ofscheduled follow-up visit due to Covid-19 pandemic. Oncology history from patient chart, confirmed with patient. HEMATOLOGY/ONCOLOGY DIAGNOSIS: Anemia of ESRD CURRENT TREATMENT: IV Venofer 100 mg at each HD session HISTORY OF PRESENT ILLNESS: Patient with history of ESRD on HD, PD, HTN, COPD, dyslipidemia, AYSHA, T2DM, RENÉ, RA, dementia, hypothyroidism and CHF. Currently receiving HD Friday, and Friday at [facility] in [place]. Receives Venofer 100 mg IV with each HD treatment. Receiving max dose of Mircera every two weeks at HD. Previously had a baseline Hgb of 10. Since approximately July Hgb has been running in the 7- 8 range with macrocytic indices. No abnormalities in other cell lines. Patient currently living at home with who accompanies her today. Wheelchair bound d/t Parkinson's disease. is her caregiver. Both patient and are poor historians. Most of history obtained from chart review. Admitted at [facility] in September for colonoscopy and hysteroscopy for evaluation of rectal and vaginal bleeding. Hemorrhoids and diverticulosis found on colonoscopy along with a serrated polyp which was removed. Thickened endometrium w benign path. She had UGI endoscopy in Apr that showed LA grade B esophagitis, erythema of gastric antrum, body, and duodenum, and with starting Protonix, a second scope inApril showed resolution. VCE showing duodenitis. Patient continues to report rectal bleeding off an on. Is no longer having daily bleeding. Bright red blood in the toilet. No longer having black stools like she was previously. Utilizing a fiber supplement as needed. Was also admitted to [facility] in August d/t infected decubitus ulcerations on her sacrum. Currently treatment with Calmoseptine lotion. Wounds on bottom are healing well per . is caring for them at home. Had lost a lot of weight during her hospitalizations but has been gaining it back. CT chest/abd/pelvis wo contrast 05/23/2022: 1. There is no acute posttraumatic intrathoracic abnormality. 2. There is no airspace consolidation, pleural effusion, or pneumothorax. 3. Cardiomegaly. 4. There is no evidence of solid organ injury in the abdomen or pelvis on this unenhanced examination. 5. The endometrium appears thickened and heterogeneous. This is not well assessed by CT. Nonemergent follow-up with gynecology and pelvic ultrasound is recommended for further assessment. IMPRESSION/PLAN: Anemia of ESRD: Cause of anemia in this patient likely multifactorial including ESRD, multiple comorbid chronic illnesses, and possibly blood loss/iron deficiency. Cannot rule out underlying bone marrow dysplasia. Patient currently on max dose of Mircera since early summer. Receives IV Venofer 100 mg at each HD session. Cause of macrocytosis unclear at this time. Normal vitamin b12 and folic acid level. Possibly related to LAVERNE, IV Venofer, and/or dialysis induced changes. Again cannot rule out underlying bone marrowdysplasia. Lab results reviewed with patient: Hgb has improved to 11.5, macrocytic indices persist Elevated sTfR indicative of ongoing iron deficiency Increased absolute retic count LDH and haptoglobin WNL No paraprotein detected Copper and Zinc WNL With signs of ongoing iron deficiency present, could consider increasing dose of Venofer to 200 mg with the next five HD sessions. Can also consider changing Mircera to different formulation of LAVERNE. Will forward recommendations on to nephrology for review. After connecting to the patient via telephone, the patient was identified by name and date of . Patient was then informed that this was a telephone call only visit. The patient agreed to participate. Visit Disposition: Routine follow-up as scheduled Total call duration was 5 minutes. INTERVAL HISTORY: Kami Hassan is a 77 year old female with a history as outlined above. Being contacted for a telephone follow-up visit today. Review of patient's allergies indicates: No Known Allergies Current Outpatient Medications Medication Sig Dispense Refill ONETOUCH DELICA LANCETS 33G MISC Up to 4 times daily 100 Each 6 Glucose Blood (ONETOUCH ULTRA BLUE) STRP Use as directed 4 times a day as needed (Diabetes). Use upto four times a day as directed 100 Strip 11 Nebulizers (NEBULIZER COMPRESSOR) MISC Inhale via nebulizer. Use as directed. 1 Each 1 DIURETIC TITRATION PLAN If no improvement on day 3, contact heart failure managing provider. 1 Each0 Melatonin 10 MG Tablet Take 1 Tablet by mouth every night at bedtime. DIURETIC TITRATION PLAN If no improvement on day 3, contact heart failure managing provider. acetaminophen (TYLENOL) 325 MG Tablet Take 2 Tabs by mouth every 6 hours as needed for Pain. 30 Tab0 Cholecalciferol (VITAMIN D3) 125 MCG (5000 UT) Tablet Take 1 Capsule by mouth in the morning. EPINEPHrine, Anaphylaxis, 1 MG/ML SOLN Inject 0.3 mL as directed as needed for Anaphylaxis (severe allergic reaction). 0.3 mL 0 Aspirin 81 MG Oral Tablet Delayed Release Take 2 Tablets by mouth in the morning. 30 Tab 5 Coloplast Paste Use to hemorrhoids 1-2 times per day 57 g 3 Calcium Acetate (Phos Binder) 667 MG Oral Capsule (PHOSLO) Take 1 Cap by mouth three times a day with meals. 60 Cap 11 Meclizine HCl 12.5 MG Oral Tablet (ANTIVERT) Take 1 Tablet by mouth 3 times a day as needed. Breo Ellipta 200-25 MCG/INH Inhalation Aerosol Powder Breath Activated (fluticasone furoate-vilanterol) Inhale by mouth 1 Puff in the morning. 60 Each 0 Isosorbide Mononitrate ER 30 MG Oral Tablet Extended Release 24 Hour (Imdur) TAKE ONE TABLET BY MOUTH DAILY 90 Tablet 3 Auryxia 1 GM 210 MG(Fe) Oral Tablet TAKE 1 TABLET BY MOUTH THREE TIMES A DAY WITH MEALS. SWALLOW WHOLE, DO NOT CHEW OR CRUSH MEDICATION Nanci-Samuel Oral Tablet Take 1 Tablet by mouth in the morning. Docusate Sodium 100 MG Oral Capsule (Colace) TAKE ONE CAPSULE BY MOUTH IN THE MORNING AND ONE CAPSULE BEFORE BEDTIME 60 Capsule 5 Sertraline HCl 100 MG Oral Tablet (Zoloft) TAKE ONE TABLET BY MOUTH IN THE MORNING 30 Tablet 5 Levothyroxine Sodium 125 MCG Oral Tablet (Levoxyl) TAKE 1 TABLET BY MOUTH DAILY AT LEAST 30 MINUTESPRIOR TO FIRST MEAL OF THE DAY OR OTHER MEDICATIONS. 90 Tablet 3 Atorvastatin Calcium 80 MG Oral Tablet (Lipitor) TAKE 1 TABLET BY MOUTH DAILY. 90 Tablet 1 Mupirocin 2 % External Ointment (Bactroban) apply one application externally twice daily 22 g 0 Carbidopa-Levodopa 25-100 MG Oral Tablet (Sinemet) TAKE ONE TABLET BY MOUTH THREE TIMES A DAY WITH MEALS 90 Tablet 5 Lidocaine-Prilocaine 2.5-2.5 % External Cream (Emla) APPLY SMALL AMOUNT TO ACCESS SITE (AVF) 1 TO 2HOURS BEFORE DIALYSIS. COVER WITH OCCLUSIVE DRESSING (SARAN WRAP) 30 g 11 Nystatin 715881 UNIT/GM External Powder (Nystop) Apply topically to affected area 2 times a day. 60g 5 Pantoprazole Sodium 20 MG Oral Tablet Delayed Release (Protonix) Take 1 Tablet by mouth in the morning and 1 Tablet in the evening. 180 Tablet 1 Pregabalin 100 MG Oral Capsule (Lyrica) Take 1 capsule twice daily. May take 1 extra capsule after dialysis. 90 Capsule 1 No current facility-administered medications for this visit. Past Medical History: Diagnosis Date (HFpEF) heart failure with preserved ejection fraction (HCC) Acute on chronic diastolic (congestive) heart failure (HCC) 03/04/2020 [facility] Allergic rhinitis 02/15/2000 acute BMI 38.0-38.9,adult 08/28/2009 Chronic Sinusitis Unspecified Controlled substance agreement signed 11/25/2016 COVID-19 10/23/2021 Cystitis 05/23/2022 admitted [facility] home on cefuroxime Dyslipidemia, goal LDL below 100 Esophagitis determined by biopsy 04/19/2022 LA grade B esophagitis, inflammation gastric antrum, body and duodenum AYSHA (generalized anxiety disorder) Hearing loss, sensorineural 01/2005 History of non-ST elevation myocardial infarction (NSTEMI) 08/24/2018 HTN (hypertension) Meniere's disease Multiple falls 04/20/2019 History of falls on the pl NSTEMI (non-ST elevated myocardial infarction) (HCC) 09/03/2018 Parkinson disease (HCC) Restless leg syndrome 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 factor (HCC) 07/18/2016 SDH (subdural hematoma) (HCC) 04/20/2019 acute Serrated polyp of colon 09/20/2022 7 mm descending colon Sleep apnea Tinnitus 01/2005 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 (HCC) REVIEW OF SYSTEMS: see interval history; otherwise WNL OBJECTIVE: Vital signs not available for review at time of call Wt Readings from Last 5 Encounters: 11/11/22 108.9 kg (240 lb) 10/04/22 105.7 kg (233 lb) 10/03/22 105.9 kg (233 lb 8 oz) 09/12/22 108.4 kg (239 lb) 09/03/22 95.3 kg (210 lb) PHYSICAL EXAM: N/A, telephone visit LABS: Results for orders placed or performed in visit on 11/28/22 IRON SCREEN, INCLUDING TIBC Result Value Ref Range Iron 30 (L) 33 - 151 ug/dL Iron Binding Capacity 334 250 - 425 ug/dL Transferrin Saturation Percent 9 (L) 15 - 55 % FERRITIN Result Value Ref Range Ferritin 209 (H) 13 - 150 ng/mL SOLUBLE TRANSFERRIN RECEPTOR Result Value Ref Range Soluble Tranferrin Receptor 2.87 (H) 0.76 - 1.76 mg/L RETICULOCYTE PANEL Result Value Ref Range Reticulocyte Percent 4.78 (H) 0.80 - 1.90 % Absolute Reticulocyte 172.1 (H) 31.3 - 100.1 K/uL Immature Reticuloctye Fraction 36.6 (H) 2.5 - 20.6 % Reticulocyte Hemoglobin 33.0 29.7 - 37.4 pg LD Result Value Ref Range LD 218 <=250 U/L SERUM PROTEIN ELECTROPHORESIS REFLEX PROFILE Result Value Ref Range Protein 7.0 6.0 - 8.3 g/dL Albumin 3.69 3.30 - 4.40 g/dL Alpha-1 Globulin 0.22 0.10 - 0.30 g/dL Alpha-2 Globulin 0.98 0.60 - 1.00 g/dL Beta-Globulin 0.98 0.80 - 1.30 g/dL Gamma-Globulin 1.14 0.70 - 1.70 g/dL Electrophoresis Interpretation Normal serum protein electrophoretic pattern. SERUM FREE LIGHT CHAINS Result Value Ref Range Early Free Light Chains, Serum 168.21 (H) 3.30 - 19.40 mg/L Lambda Free Light Chains, Serum 156.25 (H) 5.71 - 26.30 mg/L Early Lambda Free Light Chains Ratio 1.08 0.26 - 1.65 IMMUNOGLOBULIN QUANTITATIVE Result Value Ref Range IgG 1,174 700 - 1,600 mg/dL IgA 237 70 - 400 mg/dL IgM 44 40 - 230 mg/dL HAPTOGLOBIN Result Value Ref Range Haptoglobin 146 30 - 200 mg/dL COPPER, SERUM OR PLASMA Result Value Ref Range Copper 125 70 - 175 mcg/dL ZINC Result Value Ref Range Zinc 117 60 - 130 mcg/dL CBC Result Value Ref Range WBC 8.87 4.00 - 10.80 K/uL RBC 3.61 3.85 - 5.15 M/uL HGB 11.5 (L) 12.0 - 15.3 g/dL HCT 37.9 36.0 - 45.2 % MCV 105.0 81.5 - 97.5 fL MCH 31.9 27.0 - 34.0 pg MCHC 30.3 32.0 - 36.0 g/dL RDW 18.1 11.5 - 15.5 % PLT 279 140 - 400 K/uL MPV 10.9 6.6 - 11.1 fL DIFFERENTIAL, TECHNOLOGIST REVIEW Result Value Ref Range WBC 8.87 4.00 - 10.80 K/uL Neutrophils % 72.0 40.0 - 75.0 % Lymphocytes % 13.0 (L) 18.0 - 42.0 % Monocytes % 10.0 1.0 - 11.0 % Eosinophils % 3.0 0.0 - 6.0 % Basophils % 1.0 0.0 - 2.0 % Metamyelocytes % 1.0 (H) <=0.0 % Absolute Neutrophils 6.39 1.80 - 7.70 K/uL Absolute Lymphocytes 1.15 1.00 - 4.80 K/uL Absolute Monocytes 0.89 0.00 - 1.10 K/uL Absolute Eosinophils 0.27 0.00 - 0.70 K/uL Absolute Basophils 0.09 0.00 - 0.20 K/uL Absolute Metamyelocytes 0.09 (H) <=0.00 K/uL nRBCs *Note: Due to a large number of results and/or encounters for the requested time period, some results have not been displayed. A complete set of results can be found in Results Review. Please, see top of note for IMPRESSION and PLAN. TRINITY Dsouza documented in this encounter Plan of Treatment Upcoming Encounters Date Type Specialty Care Team Description 01/17/2023 Office Visit [facility]ology [facility] [address] [facility] [address] 01/28/2023 Scheduled Telephone [facility] Nurse Triage [address] [facility] [address] 02/24/2023 Laboratory Laboratory [place], Lab Scenery [address] [place] [address] 02/24/2023 Office Visit Hematology Oncology Nita Pnio CRNP [address] [facility] [place] [address] Scheduled Procedures Name [...] as of this encounter Visit Diagnoses Diagnosis Macrocytic anemia- Primary Unspecified deficiency anemia ESRD on dialysis (HCC) End stage renal disease documented in this encounter Advance Directives Documents on File Type Date Recorded Patient Schedule Supervisor Expl anation Power of Senior Mechanical Designer 12/16/2018 10:33 AM Nate r of Senior Mechanical Designer Latest Code Status on File Code Status [...] the patient have Health Care Power of Senior Mechanical Designer? No Healthcare Agents on File Name Relationship Healthcare Agent Relationshi p Communication Wesley Hassan Spouse Health Care Agent Care Teams Patient Financial Services Specialist Relationship Specialty Start Date End Date Bella Power MD [address] [place] [address] [place] [address] PCP - General Family Medicine 04/02/19 documented as of this encounter
--- OUTSIDE RECORDS SUMMARY | 2023-01-25 20:38 | External Medical Summary | Summary of Care ---
Author Name Unknown Organization [facility] Address [address] [facility] [place] [address] Phone [phone] Care Team Providers Care Drafting Clerk Name Role Phone Bella Power MD Primary Care Prov ider Reason for Visit * Reason Onset Date Comments [facility]: Maintenance 12/25/2022 Encounter Details Date Type Department Care Team Description 12/25/2022 Scheduled Telephone [facility] [address] [facility] [address] [address] 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 90 Capsule 1 11/26/2022 Active Calcium Acetate (Phos Binder) 667 MG Oral Capsule (PHOSLO) Take 1 Cap by mouth three times a day with meals. 60 Cap 11 12/10/2019 3 Discontinu ed(Patient preference /discontin uation) documented as of this encounter (statuses as [...] mRNA, LNP-s, No Pre serve, 2-Dose Series ([employer] [facility] [employer]) 01/02/2021,06/21/2020,05/24/2020 COVID-19, mRNA, LNP-s, PF, B ooster, [...] Telephone Encounter - Zeynep Miranda RN - 12/27/2022 3:19 PM EDT TE with [facility] regarding updated medications as reported by to other provider. Med list updated and new RX for Auryxia ready for picker/puller at [facility] tomorrow. * Telephone Encounter - Erica Tobar MD - 12/26/2022 10:34 PM EDT Renal nurse > pls contact [facility] dialysis to f/u on latest RXs for binders and ensure dialysis teamkeeps pt supplied and update med list in epic * Telephone Encounter - Virgen Thompson RN - 12/25/2022 9:35 AM EDT [facility] Monthly Visit Date: 12/25/2022 Time: 9:35 AM Name: Kami Hassan : 1945 Spoke with spouse Wesley, introduced myself, agreed to telephonic assessment, aware that call is being recorded for training purposes. Problems/Symptoms: HPI: Wesley reports she is doing good but once in a while she sleeps a lot, maybe 2 days a month, spouse is primary caregiver. Patient is on SNF [facility] at [facility]. Has tiny pin point areas on buttocks that are open that is treating with nystatin powder and barrier cream, denies fever/chills. Attends dialysis three times a week T-Th-Sat Constitutional: no weight loss, + weakness to hands, and + fatigue, sleeps alot Resp: no cough, no sputum, no wheezing, no SOB, and no hemoptysis Cardiac: no chest pain, no orthopnea, no dyspnea on exertion, slight PND from wearing CPAP at night, no edema, no claudication, and no palpitations GI: no pain, no heartburn, no diarrhea, no constipation, no blood/melena, no nausea, no vomiting, LBM was yesterday Musculoskeletal: no swelling and + joint pain of left hand, right hand, and fingers (arthritis) Neuro: no falling, no vertigo, + memory loss as dementia is progressing per spouse, + weakness is wheelchair bound and + numbness/tingling due to diabetic neuropathies Medication Reconciliation: Does patient take oral medications as ordered: Patient refuses to use Breo at all Yes, husbands sets up weekly pill systems requirements planner reports he was instructed to stop her Calcium Acetate(unsure of date) and increase her Auryxia to 2 tablets three times a day, he ran out Auryxia 2 weeks ago and was unable to get these refilled at [facility] pharmacy, unsure is she is to continue with the Auryxia at 2 tabs three times daily and if so will need refills, states Dr. Busby is name on bottle Monthly follow up scheduled Virgen Thompson RN 12/25/2022 documented in this encounter Plan of Treatment Upcoming Encounters Date Type Specialty Care Team Description 01/17/2023 Office Visit Gastroenterology Ai Hunt CRNP [address] [place] [address] 01/28/2023 Scheduled Telephone [facility] Nurse Triage [address] [place] [address] 02/24/2023 Laboratory Laboratory [place], Lab Scenery [address] [place] [address] 02/24/2023 Office Visit Hematology Oncology Nita Pino CRNP [address] [place] [address] Scheduled Procedures Name Priority [...] Documents on File Type Date Recorded Patient Punch Machine Operator Expl anation Power of Cook Jelly 12/16/2018 10:33 AM Nate r of Cook Jelly Latest Code Status on File Code Status [...] the patient have Health Care Power of Cook Jelly? No Healthcare Agents on File Name Relationship Healthcare Agent Relationsil p Communication Wesley Hassan Spouse Health Care Agent Care Teams Drafting Clerk Relationship Specialty Start Date End Date Bella Power MD [address] [place] [address] [place] [address] PCP - General Family Medicine 04/02/19 documented as of this encounter
--- OUTSIDE RECORDS SUMMARY | 2023-01-25 20:38 | External Medical Summary | Summary of Care ---
Author Name Unknown Organization [facility] Address [address] [facility] [place] [address] Phone [phone] Care Team Providers Care Advanced Quality Engineer Name Role Phone Bella Power MD Primary Care Prov ider Reason for Visit * Reason Onset Date Comments Appointment 12/05/2022 Encounter Details Date Type Department Care Team Description 12/05/2022 Telephone Nephrology, [facility] [address] [facility] [place] [address] Erica Tboar MD 200 [facility] [place] [address] Appointment Allergies No known active allergiesdocumented as [...] 1 Each 1 11/27/2018 Active DIURETIC TITRATION PLANIndications:Superintendent Landfill Operations sandro heart failure with preserved ejection fraction [...] group B, by GOLD 2017 classification ([facility] Inhale by mouth 1 Puff [...] WRAP) 30 g 11 11/09/2022 Active Nystatin 363570 UNIT/GM External Powder (Nystop) Apply topically to [...] mRNA, LNP-s, No Pre serve, 2-Dose Series ([employer]) 01/02/2021,06/21/2020,05/24/2020 COVID-19, mRNA, LNP-s, PF, B ooster, [...] * Telephone Encounter - RENÉ Rodríguez - 12/06/2022 11:36 AM EDT Spoke with Pt's , EKG, zio scheduled for 12/09. * Telephone Encounter - Rachael Carter LPN - 12/06/2022 10:37 AM EDT Spoke with and explained EKG & zio monitor. He is agreeable, please set up appts as requested. * Telephone Encounter - RENÉ Flores - 12/05/2022 1:27 PM EDT Pt called back, wants a call at [phone] explaining exactly why the EKG needs to [...] 12/05/2022 9:48 AM EDT Patient last seen [facility] June 2020 for urgent visit to [...] Encounters Date Type Specialty Care Team Description 12/09/2022 Cardiac Studies Cardiac Studies 12/09/2022 Cardiac Studies Cardiac Studies 12/16/2022 Telemedicine Hematology Oncology Nita Pino CRNP [address] [place] [address] 12/25/2022 Home Visit [facility] Sallie Lynne RN [address] [place] [address] 01/17/2023 Office Visit Gastroenterology Ai Hunt CRNP [address] [place] [address] 02/24/2023 Laboratory Laboratory [place], Lab Scenery [address] [place] [facility] [place] [address] 02/24/2023 Office Visit Hematology Oncology Nita Pino CRNP [address] [place] [address] Scheduled Orders Name Type Priority Associated Diagnoses [...] Documents on File Type Date Recorded Patient Patient Financial Services Manager Expl anation Power of Director Clinical Research 12/16/2018 10:33 AM Nate r of Director Clinical Research Latest Code Status on File Code Status [...] the patient have Health Care Power of Director Clinical Research? No Healthcare Agents on File Name Relationship Healthcare Agent Relationshi p Communication Wesley Hassan Spouse Health Care Agent Care Teams Advanced Quality Engineer Relationship Specialty Start Date End Date Bella Power MD [address] [place] [address] [place] [address] PCP - General Family Medicine 04/02/19 documented as of this encounter
--- OUTSIDE RECORDS SUMMARY | 2023-01-25 20:39 | External Medical Summary ---
Author Name Unknown Address Unknown Organization [id number]:[facility] [place] [place] - [address] [place] [address] Laboratory Report Ordering Provider Test Date Status ÓSCAR STEVENSON 11/28/2022 14:29:41 Final Observation Date Value Abnormality Reference (Units ) Status Iron 11/28/2022 14:29:41 30 Below low normal 33-151 (ug/dL) Final Iron-binding capacity 11/28/2022 14:29:41 334 250-425 (ug/dL) Final Transferrin Sat % 11/28/2022 14:29:41 9 Below low normal 15-55 (%) Final Performing Location LABORATORY C - [address] [place] [address]
--- OUTSIDE RECORDS SUMMARY | 2023-01-25 20:39 | External Medical Summary | Summary of Care ---
Author Name Unknown Organization [facility] Address [address] [facility] [place] [address] Phone [phone] Care Team Providers Care Speaker Mounter Name Role Phone Bella Power MD Primary Care Prov ider Reason for Visit * Reason Onset Date Comments Appointment 11/27/2022 Encounter Details Date Type Department Care Team Description 11/27/2022 Telephone Hematology/Oncology [facility] [place] [address] [place] [address] Nita Pino CRNP [address] [facility] [place] [address] Appointment Allergies No known active allergiesdocumented [...] 1 Each 1 11/27/2018 Active DIURETIC TITRATION PLANIndications: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 [...] get him transferred over the front office manager but unfortunately was not able to get through. Please give Wesley a call back at [phone]. Thank you! * Telephone Encounter - RENÉ [...] Telemedicine Hematology Oncology [facility] [address] [facility] [place] [address] 12/25/2022 [facility] Sallie Lynne RN [address] [place] [address] 01/17/2023 Office Visit Gastroenterology Ai Hunt CRNP [address] [place] [address] 02/28/2023 Laboratory [facility], Lab Sc[facility] [address] [facility] [address] Scheduled Procedures Name Priority Associated Diagnoses Date/Ti [...] Documents on File Type Date Recorded Patient Chute Worker Expl anation Power of Prints And Drawings Curator 12/16/2018 10:33 AM Nate r of Prints And Drawings Curator Latest Code Status on File Code Status [...] the patient have Health Care Power of Prints And Drawings Curator? No Healthcare Agents on File Name Relationship Healthcare Agent Relationshi p Communication Wesley Hassan Spouse Health Care Agent Care Teams Speaker Mounter Relationship Specialty Start Date End Date Bella Power MD [address] [place] [address] [place] [address] PCP - General Family Medicine 04/02/19 documented as of this encounter
--- OUTSIDE RECORDS SUMMARY | 2023-01-25 20:39 | External Medical Summary ---
Author Name Unknown Address Unknown Organization : Laboratory Report Ordering Provider Test Date Status ÓSCAR STEVENSON 11/28/2022 14:29:41 Final Observation Date Value Abnormality Reference (Units ) Status Copper 11/28/2022 14:29:41 125 70-175 (mc g/dL) Final This test was developed and its analytical performance
characteristics have been determined by [employer]
[place]. It has
not been cleared or approved by the U.S. Food and Drug
Administration. This assay has been validated pursuant
to the CLIA regulations and is used for clinical
purposes.

Test Performed at:
[facility] [place]
[address] [facility]
[place] [address]
Carlos Seals M.D., Ph.D.,Director of Laboratories Performing Location
--- OUTSIDE RECORDS SUMMARY | 2023-01-25 20:39 | External Medical Summary | Summary of Care ---
Author Name Unknown Organization [facility] Address [address] [facility] [place] [address] Phone [phone] Care Team Providers Care Gas Station Supervisor Name Role Phone Bella Power MD Primary Care Prov ider Reason for Visit * Reason Onset Date Comments Appointment 11/27/2022 Encounter Details Date Type Department Care Team Description 11/27/2022 Telephone Hematology/Oncology [facility] [place] [address] [place] [address] Nita Pino CRNP 400 [facility] [place] [address] Appointment Allergies No known active allergiesdocumented [...] 1 Each 1 11/27/2018 Active DIURETIC TITRATION PLANIndications:Produce Team Member sandro heart failure with preserved ejection fraction [...] ndications:COPD, group B, by GOLD 2017 classification ([facility]) Inhale by mouth 1 Puff in the [...] WRAP) 30 g 11 11/09/2022 Active Nystatin [id number] UNIT/GM External Powder (Nystop) Apply topically to [...] o Beta Tanner Therapy: Other: none o AHRESH Inhibitor/ARB Therapy: Other: none o Diuretic therapy: [...] mRNA, LNP-s, No Pre serve, 2-Dose Series ([employer]) 01/02/2021,06/21/2020,05/24/2020 COVID-19, mRNA, LNP-s, PF, B ooster, [...] Miscellaneous Notes * Telephone Encounter - RENÉ Morrison - [...] get him transferred over the front office secretary but unfortunately was not able to get through. Please give Wesley a call back at [phone]. Thank you! * Telephone Encounter - RENÉ [...] Home Sallie Lynne RN [address] [place] [address] 01/17/2023 Office Visit Gastroenterology Ai Hunt CRNP [address] [place] [address] Scheduled Procedures Name Priority Associated Diagnoses Date/Ti [...] Documents on File Type Date Recorded Patient Clam Shucking Machine Tender Expl anation Power of Vessel Builder 12/16/2018 10:33 AM Nate r of Vessel Builder Latest Code Status on File Code Status [...] the patient have Health Care Power of Vessel Builder? No Healthcare Agents on File Name Relationship Healthcare Agent Relationshi p Communication Wesley Hassan Spouse Health Care Agent Care Teams Gas Station Supervisor Relationship Specialty Start Date End Date Bella Power MD [address] [place] [address] [place] [address] PCP - General Family Medicine 04/02/19 documented as of this encounter
--- OUTSIDE RECORDS SUMMARY | 2023-01-25 20:39 | External Medical Summary ---
Author Name Unknown Address Unknown Organization [id number]:[facility] - [address] [place] [address] Laboratory Report Ordering Provider Test Date Status ÓSCAR STEVENSON 11/28/2022 14:29:41 Final Observation Date Value Abnormality Reference (Units ) Status WBC, Total 11/28/2022 14:29:41 8.87 4.00-10.8 0 (K/uL) Final RBC 11/28/2022 14:29:41 3.61 3.85-5.15 (M/uL) Final Hemoglobin 11/28/2022 14:29:41 11.5 Below low normal 12 .0-15.3 (g/dL) Final HCT 11/28/2022 14:29:41 37.9 36.0-45.2 (%) Final MCV 11/28/2022 14:29:41 105.0 81.5-97.5 (fL) Final MCH 11/28/2022 14:29:41 31.9 27.0-34.0 (pg) Final MCHC 11/28/2022 14:29:41 30.3 32.0-36.0 (g/dL) Final RDW 11/28/2022 14:29:41 18.1 11.5-15.5 (%) Final Platelets 11/28/2022 14:29:41 279 140-400 (K /uL) Final MPV 11/28/2022 14:29:41 10.9 6.6-11.1 ( fL) Final Performing Location [facility] 0 - [address] [place] [address]
--- OUTSIDE RECORDS SUMMARY | 2023-01-25 20:39 | External Medical Summary ---
Author Name Unknown Address Unknown Organization K01:[facility] - [address] [facility] [address] Laboratory Report Ordering Provider Test Date Status ÓSCAR STEVENSON 11/28/2022 14:29:41 Final Observation Date Value Abnormality Reference (Units ) Status Ferritin 11/28/2022 14:29:41 209 Above high normal 13 -150 (ng/mL) Final Postmenopausal women have hi gher ferritin levels than pre-menopausal women. The above reference interval is based on pre-menopausal women. Performing Location [facility] [address] [facility] [address]
--- OUTSIDE RECORDS SUMMARY | 2023-01-25 20:39 | External Medical Summary | Summary of Care ---
Author Name Unknown Organization [facility] Address [address] [facility] [place] [address] Phone [phone] Care Team Providers Care Smoking Pipe Coater Name Role Phone Bella Power MD Primary Care Prov ider Reason for Visit * Reason Comments Outpatient Testing Encounter Details Date Type Department Care Team Description 11/28/2022 Laboratory Laboratory, [facility] 132 [facility] [place] [id number] [facility] [address] [facility] [address] Rectal bleeding; ESRD on dialysis ([facility]); Macrocytic anemia Allergies No known active allergiesdocumented as of [...] , group B, by GOLD 2017 classification ([facility]) Inhale via nebulizer. Use as directed. 1 Each 1 11/27/2018 Active DIURETIC TITRATION PLANIndications:Boiler Cleaner sandro heart failure with preserved ejection fraction [...] ndications:COPD, group B, by GOLD 2017 classification ([facility]) Inhale by mouth 1 Puff [...] WRAP) 30 g 11 11/09/2022 Active Nystatin [id number] UNIT/GM External Powder (Nystop) Apply topically to [...] mRNA, LNP-s, No Pre serve, 2-Dose Series ([employer]) 01/02/2021,06/21/2020,05/24/2020 COVID-19, mRNA, LNP-s, PF, B ooster, [...] No 04/20/2019 documented as of this encounter Plan of Treatment Upcoming Encounters Date Type Specialty Care Team Description 12/25/2022 [facility] Visit [facility] Sallie Lynne RN [address] [place] [address] 01/17/2023 Office Visit Gastroenterology Ai Hunt CRNP [address] [place] [address] Pending Results Name Type Priority Associated Diagnoses Date /Time IRON SCREEN, INCLUDING TIBC Lab Routine Rectal bleeding ESRD on dialysis (HCC) Macrocytic anemia 11/28/2022 2:29 PM EDT FERRITIN Lab Routine Rectal bleeding ESRD on dialysis (HCC) Macrocytic anemia 11/28/2022 2:29 PM EDT SOLUBLE TRANSFERRIN RECEPTOR Lab Routine Rectal bleeding ESRD on dialysis (HCC) Macrocytic anemia 11/28/2022 2:29 PM EDT RETICULOCYTE PANEL Lab Routine Rectal bleeding ESRD on dialysis (HCC) Macrocytic anemia 11/28/2022 2:29 PM EDT LD Lab Routine Rectal bleeding ESRD on dialysis (HCC) Macrocytic anemia 11/28/2022 2:29 PM EDT SERUM PROTEIN ELECTROPHORESIS REFLEX PROFILE Lab Routine Rectal bleeding ESRD on dialysis (HCC) Macrocytic anemia 11/28/2022 2:29 PM EDT SERUM FREE LIGHT CHAINS Lab Routine Rectal bleeding ESRD on dialysis (HCC) Macrocytic anemia 11/28/2022 2:29 PM EDT IMMUNOGLOBULIN QUANTITATIVE Lab Routine Rectal bleeding ESRD on dialysis (HCC) Macrocytic anemia 11/28/2022 2:29 PM EDT HAPTOGLOBIN Lab Routine Rectal bleeding ESRD on dialysis (HCC) Macrocytic anemia 11/28/2022 2:29 PM EDT COPPER, SERUM OR PLASMA Lab Routine Rectal bleeding ESRD on dialysis (HCC) Macrocytic anemia 11/28/2022 2:29 PM EDT ZINC Lab Routine Rectal bleeding ESRD on dialysis (HCC) Macrocytic anemia 11/28/2022 2:29 PM EDT Scheduled Procedures Name Priority Associated Diagnoses Date/Ti [...] Not on filedocumented as of this encounter Procedures Procedure Name Priority Date/Time Associated Diagnosis Comments DIFFERENTIAL, AUTOMATED Routine 11/28/2022 2:29 PM EDT Rectal bleeding ESRD on dialysis (HCC) Macrocytic anemia CBC WITH WBC DIFFERENTIAL Routine 11/28/2022 2:29 PM EDT Rectal bleeding ESRD on dialysis (HCC) Macrocytic anemia CBC Routine 11/28/2022 2:29 PM EDT Rectal bleeding ESRD on dialysis (HCC) Macrocytic anemia DIFFERENTIAL, TECHNOLOGIST REVIEW Routine 11/28/2022 2:29 PM EDT Rectal bleeding ESRD on dialysis (HCC) Macrocytic anemia documented in this encounter Results * (ABNORMAL) DIFFERENTIAL, TECHNOLOGIST REVIEW (11/28/2022 2:29 PM EDT) WBC 8.87 4.00 - 10.80 K/uL 11/28/2022 2:59 PM EDT [facility] [place] [facility] Neutrophils % 72.0 40.0 - 75.0 % 11/28/2022 2:59 PM EDT [facility] [place] [facility] Lymphocytes % 13.0(L) 18.0 - 42.0 % 11/28/2022 2:59 PM EDT [facility] [place] [facility] Monocytes % 10.0 1.0 - 11.0 % 11/28/2022 2:59 PM EDT [facility] [place] [facility] Eosinophils % 3.0 0.0 - 6.0 % 11/28/2022 2:59 PM EDT [facility] [place] [facility] Basophils % 1.0 0.0 - 2.0 % 11/28/2022 2:59 PM EDT [facility] [place] [facility] Metamyelocytes % 1.0(H) <=0.0 % 11/29/19 2:59 PM EDT [facility] [place] [facility] Absolute Neutrophils 6.39 1.80 - 7.70 K/uL 11/28/2022 2:59 PM EDT [facility] [place] [facility] Absolute Lymphocytes 1.15 1.00 - 4.80 K/uL 11/28/2022 2:59 PM EDT [facility] [place] [facility] Absolute Monocytes 0.89 0.00 - 1.10 K/uL 11/28/2022 2:59 PM EDT [facility] [place] [facility] Absolute Eosinophils 0.27 0.00 - 0.70 K/uL 11/28/2022 2:59 PM EDT [facility] [place] [facility] Absolute Basophils 0.09 0.00 - 0.20 K/uL 11/28/2022 2:59 PM EDT [facility] [place] [facility] Absolute Metamyelocytes 0.09(H) <=0.00 K/uL 11/28/2022 2:59 PM EDT [facility] [place] [facility] nRBCs 11/28/2022 2:59 PM EDT [facility] [place] [facility] Blood Venous blood specimen / Unknown Venipuncture / Unknown 11/28/2022 2:29 PM EDT 11/28/2022 2:29 PM EDT Nita PETERSEN LAB BLOOD ORDER RADHA [facility] [place] [facility] [address] [facility] [place] [address] * DIFFERENTIAL, AUTOMATED (11/28/2022 2:29 PM EDT) Blood Venous blood specimen / Unknown Venipuncture / Unknown 11/28/2022 2:29 PM EDT 11/28/2022 2:29 PM EDT Nita PETERSEN LAB BLOOD ORDER RADHA Performing Organization Address City/[facility]/ZIP Co de Phone Number [facility] [place] [facility] [place] [address] * (ABNORMAL) CBC (11/28/2022 2:29 PM EDT) WBC 8.87 4.00 - 10.80 K/uL 11/28/2022 2:59 PM EDT [facility] [place] [facility] RBC 3.61 3.85 - 5.15 M/uL 11/28/2022 2:59 PM EDT [facility] [place] [facility] HGB 11.5(L) 12.0 - 15.3 g/dL 11/28/2022 2:59 PM EDT [facility] [place] [facility] HCT 37.9 36.0 - 45.2 % 11/28/2022 2:59 PM EDT [facility] [place] [facility] MCV 105.0 81.5 - 97.5 fL 11/28/2022 2:59 PM EDT [facility] [place] [facility] MCH 31.9 27.0 - 34.0 pg 11/28/2022 2:59 PM EDT [facility] MCHC 30.3 32.0 - 36.0 g/dL 11/28/2022 2:59 PM EDT [facility] RDW 18.1 11.5 - 15.5 % 11/28/2022 2:59 PM EDT [facility] PLT 279 140 - 400 K/uL 11/28/2022 2:59 PM EDT [facility] [place] [facility] MPV 10.9 6.6 - 11.1 fL 11/28/2022 2:59 PM EDT [facility] Blood Venous blood specimen / Unknown Venipuncture / Unknown 11/28/2022 2:29 PM EDT 11/28/2022 2:29 PM EDT iNta PETERSEN LAB BLOOD ORDER RADHA Performing Organization Address City/State/[facility] Co de Phone Number [facility] [place] [address] documented in this encounter Visit Diagnoses Diagnosis Rectal bleeding Hemorrhage of rectum and anus ESRD on dialysis (HCC) End stage renal disease Macrocytic anemia Unspecified deficiency anemia documented in this encounter Advance Directives Documents on File Type Date Recorded Patient Seconds Handler Expl anation Power of Bank Secrecy Act Officer 12/16/2018 10:33 AM Nate r of Bank Secrecy Act Officer Latest Code Status on File Code Status [...] the patient have Health Care Power of Bank Secrecy Act Officer? No Healthcare Agents on File Name Relationship Healthcare Agent Relationshi p Communication Wesley Hassan Spouse Health Care Agent Care Teams Smoking Pipe Coater Relationship Specialty Start Date End Date Bella Power MD [address] [place] [address] [place] [address] PCP - General Family Medicine 04/02/19 documented as of this encounter
--- OUTSIDE RECORDS SUMMARY | 2023-01-25 20:39 | External Medical Summary ---
Author Name Unknown Address Unknown Organization K01:LABORATORY [facility] - [facility] [place] [address] Laboratory Report Ordering Provider Test Date Status ÓSCAR STEVENSON 11/28/2022 14:29:41 Final Observation Date Value Abnormality Reference (Units ) Status Retic, % (auto) 11/28/2022 14:29:41 4.78 Above high normal 0.80-1.90 (%) Final Reticulocytes, Absolute 11/28/2022 14:29:41 172.1 Above high normal 31.3-100.1 (K/uL) Final Reticulocyte fraction, immature 11/28/2022 14:29:41 36.6 Above high normal 2.5-20.6 (%) Final Reticulocyte HGB 11/28/2022 14:29:41 33.0 29.7-37.4 (pg) Final Performing Location [facility]ORY [facility] - [address] [facility] [address]
--- OUTSIDE RECORDS SUMMARY | 2023-01-25 20:39 | External Medical Summary ---
Author Name Unknown Address Unknown Organization : Laboratory Report Ordering Provider Test Date Status ÓSCAR STEVENSON 11/28/2022 14:29:41 Final Observation Date Value Abnormality Reference (Units ) Status Zinc, level 11/28/2022 14:29:41 117 60-130 ( mcg/dL) Final This test was developed and its analytical performance
characteristics have been determined by [employer]
[place]. It has
not been cleared or approved by the U.S. Food and Drug
Administration. This assay has been validated pursuant
to the CLIA regulations and is used for clinical
purposes.

Test Performed at:
[facility]
[address] [facility]
[place] [address]
Carlos Seals M.D., Ph.D.,Director of Laboratories Performing Location
--- OUTSIDE RECORDS SUMMARY | 2023-01-25 20:39 | External Medical Summary ---
Author Name Unknown Address Unknown Organization K01:[facility] - [address] [place] [address] Laboratory Report Ordering Provider Test Date Status GRAHAMÓSCAR 11/28/2022 14:29:41 Final Observation Date Value Abnormality Reference (Units ) Status Haptoglobin 11/28/2022 14:29:41 146 30-200 ( mg/dL) Final Performing Location [facility] - [address] [place] [address]
--- OUTSIDE RECORDS SUMMARY | 2023-01-25 20:39 | External Medical Summary ---
Author Name Unknown Address Unknown Organization : Laboratory Report Ordering Provider Test Date Status ÓSCAR STEVENSON 11/28/2022 14:29:41 Final Observation Date Value Abnormality Reference (Units ) Status Transferrin receptor.soluble [Mass/volume] in Serum or Plasma 11/28/2022 14:29:41 2.87 Above high normal 0.76-1.76 (mg/L) Final Test performed by [facility]
[address] [facility] [place] [address]

Compensation Programs Manager: ÓSCAR WRIGHT M.D.
Test Reported by [facility],
[facility],
[address] [place], [place]
Carlos Seals M.D., Ph.D., Director of Laboratories
, [facility] [id number] Performing Location
--- OUTSIDE RECORDS SUMMARY | 2023-01-25 20:39 | External Medical Summary ---
Author Name Unknown Address Unknown Organization K01:[facility] - [address] [place] [address] Laboratory Report Ordering Provider Test Date Status ÓSCAR STEVENSON 11/28/2022 14:29:41 Final Observation Date Value Abnormality Reference (Units ) Status LDH 11/28/2022 14:29:41 218 <=250 (U/L ) Final Result may be falsely elevat ed due to hemolysis. Performing Location [facility] - [address] [place] [address]
--- OUTSIDE RECORDS SUMMARY | 2023-01-25 20:39 | External Medical Summary ---
Author Name Unknown Address Unknown Organization K01:LABORATORY [facility] - [facility] [address] [facility] [address] [facility] [address] Laboratory Report Ordering Provider Test Date Status ÓSCAR STEVENSON 11/28/2022 14:29:41 Final Observation Date Value Abnormality Reference (Units) Status Protein 11/28/2022 14:29:41 7.0 6.0-8.3 (g/dL) Final Albumin/Protein.total [Pure mass fraction] in Serum or Plasma by Electrophoresis 11/28/2022 14:29:41 3.69 3.30-4.40 (g/dL) Final Alpha 1 globulin/Protein.tota l [Pure mass fraction] in Serum or Plasma by Electrophoresis 11/28/2022 14:29:41 0.22 0.10-0.30 (g/dL) Final Alpha 2 globulin/Protein.tota l [Pure mass fraction] in Serum or Plasma by Electrophoresis 11/28/2022 14:29:41 0.98 0.60-1.00 (g/dL) Final Beta globulin/Protein.tota l [Pure mass fraction] in Serum or Plasma by Electrophoresis 11/28/2022 14:29:41 0.98 0.80-1.30 (g/dL) Final Gamma globulin/Protein.tota l [Pure mass fraction] in Serum or Plasma by Electrophoresis 11/28/2022 14:29:41 1.14 0.70-1.70 (g/dL) Final Protein Fractions [Interpretation] in Serum or Plasma by Electrophoresis Narrative 11/28/2022 14:29:41 Normal serum protein electrophoretic pattern. Final Performing Location LABORATORY [facility] - [address] [facility] [address] [facility] [address]
--- OUTSIDE RECORDS SUMMARY | 2023-01-25 20:39 | External Medical Summary | Summary of Care ---
Author Name Unknown Organization [facility] Address [address] [facility] [place] [address] Phone [phone] Care Team Providers Care Seismology Teacher Name Role Phone Bella Power MD Primary Care Prov ider Reason for Visit * Reason Comments Consultation Anemia * Evaluate & Treat - Unlimited Visits (Within 30 days (routine)) - Authorized Specialty Diagnoses / Procedures Referred By Gray santiago Referred To Contact Hematology/Oncology / Hematology Oncology Diagnoses Anemia, unspecified type Ai Hunt CRNP [address] [place] [address] Referral ID Status Reason Start Date Expiration Date Visits Requested Visits Authorized [id number] Authorized Specialty Services Required 10/04/[phone] Encounter Details Date Type Department Care Team Description 11/11/2022 Office Visit Hematology/Oncology Pako [place] [address] [facility] [place] [address] Nita Pino CRNP [address] [facility] [place] [address] Macrocytic anemia*; ESRD on dialysis (HCC); Rectal bleeding Allergies No known active allergiesdocumented as of this encounter (statuses as of 11/27/2022) Medications Medication Sig Dispensed Refills Start Date End Date Status ONETOUCH MYRIAM LANCETS 33G MISC Up to 4 times daily 100 Each 6 11/24/2014 Active Glucose Blood (ONETOUCH ULTRA BLUE) STRP Use as directed 4 times a day as needed (Diabetes). Use up to four times a day as directed 100 Strip 11 02/03/2018 Active Nebulizers (NEBULIZER COMPRESSOR) MISCIndications:OFFICE SWEEPER D, group B, by GOLD 2017 classification ([facility]) Inhale via nebulizer. Use as directed. [...] Indications:COPD, group B, by GOLD 2017 classification ([facility]) Inhale by mouth 1 Puff in the morning. 60 Each 0 08/22/2021 Active Isosorbide Mononitrate ER 30 MG Oral Tablet Extended Release 24 Hour (Imdur) TAKE ONE TABLET BY MOUTH DAILY 90 Tablet 3 12/27/2021 3 Active Hydrocortisone (Perianal) 2.5 % External CreamIndications:He [...] WRAP) 30 g 11 11/09/2022 Active Nystatin 077663 UNIT/GM External Powder (Nystop) Apply topically to affected area 2 times a day. 60 g 5 11/09/2022 Active Pantoprazole Sodium 20 MG Oral Tablet Delayed Release (Protonix) Take 1 Tablet by mouth in the morning and 1 Tablet in the evening. 180 Tablet 1 04/15/2022 3 Discontinu ed(Refill) Pregabalin 100 MG Oral Capsule (Lyrica)Indications :Primary parkinsonism (HCC) Take 1 capsule twice daily. May take 1 extra capsule after dialysis. 90 Capsule 1 08/22/2022 3 Discontinu ed(Refill) documented as of this encounter (statuses as of 11/27/2022) Active Problems Problem Noted Date Serrated polyp [...] as of this encounter (statuses as of 11/27/2022) Resolved Problems Problem Noted Date Resolved Date [...] as of this encounter (statuses as of 11/27/2022) Immunizations Name Administration Dates Next Due COVID-19 [...] on file documented as of this encounter Last Filed Vital Signs Vital Sign Reading Time Taken Comments Blood Pressure 90/40 11/11/2022 3:18 PM EDT Pulse 64 11/11/2022 3:18 PM EDT Temperature - - Respiratory Rate 16 11/11/2022 3:18 PM EDT Oxygen Saturation 85% 11/11/2022 3:18 PM EDT Inhaled Oxygen Concentration - - Weight 108.9 kg (240 lb) 11/11/2022 3:18 PM EDT Height 157.5 cm (5' 2") 11/11/2022 3:18 PM EDT Body Mass Index 43.9 11/11/2022 3:18 PM EDT documented in this encounter Functional Status Functional Status Response [...] encounter Progress Notes * TRINITY White - 11/11/2022 3:00 PM EDT Hematology/Oncology Outpatient Clinic note [facility] [address] [place], [place] [address] Name: Kami Hassan Date: 11/11/2022 REFERRED BY: TRINITY Taylor CHIEF COMPLAINT: Kami Hassan is a 77 year old female here today for new consultation for anemia of ESRD. HISTORY OF PRESENT ILLNESS: Patient with history of ESRD on HD, PD, HTN, COPD, dyslipidemia, AYSHA, T2DM, RENÉ, RA, dementia, hypothyroidism and CHF. Currently receiving HD Friday, and Friday at [facility] in [place]. Receives Venofer 100 mg IV with each [...] history obtained from chart review. Admitted at [facility] in September for colonoscopy and hysteroscopy for [...] supplement as needed. Was also admitted to [facility] in August d/t infected decubitus ulcerations on [...] pelvic ultrasound is recommended for further assessment. Patient's past medical history, social history, and family history were reviewed and updated. Past Medical History: Diagnosis Date (HFpEF) heart failure with preserved ejection fraction (HCC) Acute on chronic diastolic (congestive) heart failure ([facility]) 03/04/2020 [facility] Allergic rhinitis 02/15/2000 acute BMI 38.0-38.9,adult 08/28/2009 Chronic Sinusitis Unspecified Controlled substance agreement signed 11/25/2016 COVID-19 10/23/2021 Cystitis 05/23/2022 admitted [facility] home on cefuroxime Dyslipidemia, goal LDL below 100 Esophagitis determined by biopsy 04/19/2022 LA grade B esophagitis, inflammation gastric antrum, body and duodenum AYSHA (generalized anxiety disorder) Hearing loss, sensorineural 01/2005 History of non-ST elevation myocardial infarction (NSTEMI) 08/24/2018 HTN (hypertension) Meniere's disease Multiple falls 04/20/2019 History of falls on the pl NSTEMI (non-ST elevated myocardial infarction) ([facility]) 09/03/2018 Parkinson disease ([facility]) Restless leg syndrome 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 factor ([facility]) 07/18/2016 SDH (subdural hematoma) ([facility]) 04/20/2019 acute Serrated polyp of colon 09/20/2022 7 mm descending colon Sleep apnea Tinnitus 01/2005 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 ([facility]) Family History Problem Relation Age of Onset Heart Disorder Father also had AAA, age 85 Diabetes Father Hypertension Father Musculo-skeletal Disorder Mother has myasthenia gravis, now age 75 Hypertension Mother Neurological Disorder Brother myotonic dystrophy Neurological Disorder Sister wheelchair bound, indwelling Kirby Neurological Disorder Sister myotonic dystrophy Diabetes Brother Diabetes Sister Diabetes Sister Heart Disorder Sister Social History Socioeconomic History Marital status: Spouse name: Wesley Number of children: 3 Years of education: Not on file Highest education level: Not on file Occupational History Occupation: at home Tobacco Use Smoking status: Former Packs/day: 0.25 Years: 50.00 Pack years: 12.50 Types: Cigarettes Quit date: 04/20/1989 Years since quittin.5 Smokeless tobacco: Never Tobacco comments: smoked since 19 years of age. Smokes a pack every 3-4 days. 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 Social Determinants of Health Financial Resource Strain: Not on file Food Insecurity: Not on file Transportation Needs: Not on file Physical Activity: Not on file Stress: Not on file Social Connections: Not on file Intimate Partner Violence: Not on file Housing Stability: Not on file Review of patient's allergies indicates: No Known [...] TABLET BY MOUTH DAILY 90 Tablet 3 Hydrocortisone (Perianal) 2.5 % External Cream ADMINISTER INTO RECTUM OR APPLY TO EXTERNAL HEMORRHOIDS ONCE DAILY 28 g 2 Pantoprazole Sodium 20 MG Oral Tablet Delayed Release (Protonix) Take 1 Tablet by mouth in the morning and 1 Tablet in the evening. 180 Tablet 1 Auryxia 1 GM 210 MG(Fe) Oral Tablet [...] TABLET BY MOUTH DAILY. 90 Tablet 1 Pregabalin 100 MG Oral Capsule (Lyrica) Take 1 capsule twice daily. May take 1 extra capsule after dialysis. 90 Capsule 1 Mupirocin 2 % External Ointment (Bactroban) [...] DRESSING (SARAN WRAP) 30 g 11 Nystatin 564174 UNIT/GM External Powder (Nystop) Apply topically to affected area 2 times a day. 60g 5 No current facility-administered medications for this visit. REVIEW OF SYSTEMS: SEE HPI - otherwise negative OBJECTIVE: Filed Vitals: 11/11/22 1518 BP: 90/40 Pulse: 64 Resp: 16 SpO2: 85% Weight: 108.9 kg (240 lb) Height: 1.575 m (5' 2") Wt Readings from Last 5 Encounters: 11/11/22 108.9 kg (240 lb) 10/04/22 105.7 kg (233 lb) 10/03/22 105.9 kg (233 lb 8 oz) 09/12/22 108.4 kg (239 lb) 09/03/22 95.3 kg (210 lb) PHYSICAL EXAM: Constitutional: (+) chronically ill Neuro: alert, oriented to person and place Chest: normal respiratory effort, Extremities: no edema Skin: warm and dry LABS: Component Latest Ref [facility] 10/04/2022 WBC 4.00 - 10.80 K/uL 6.18 RBC 3.85 - 5.15 M/uL 3.38 HGB 12.0 - 15.3 g/dL 10.4 (L) HCT 36.0 - 45.2 % 36.4 MCV 81.5 - 97.5 fL 107.7 MCH 27.0 - 34.0 pg 30.8 MCHC 32.0 - 36.0 g/dL 28.6 RDW 11.5 - 15.5 % 16.8 PLT 140 - 400 K/uL 205 MPV 6.6 - 11.1 fL 12.1 nRBCs <=0 /100 WBCs 0 Component Latest Ref [facility] 10/04/2022 Iron 33 - 151 ug/dL 44 Iron Binding Capacity 250 - 425 ug/dL 268 Transferrin Saturation Percent 15 - 55 % 16 Component Latest Ref Rn 10/04/2022 Ferritin 13 - 150 ng/mL 419 (H) Component Latest Ref Rn 10/04/2022 Vitamin B12 232 - 1,245 pg/mL 1,196 Component Latest Ref [facility] 10/04/2022 Folic Acid >4.5 ng/mL >20.0 IMPRESSION: Anemia of ESRD, macrocytosis: 77 y/o female with history of ESRD on HD, PD, HTN, COPD, dyslipidemia, AYSHA, T2DM, RENÉ, RA, dementia, hypothyroidism and CHF. Currently receiving HD Friday, and Friday at [facility]. Receives Venofer 100 mg IV with each HD treatment. Receiving max dose of Mircera every two weeks at HD. Previously had a baseline Hgb of 10. Since approximately July Hgb has been running in the 7-8 range with macrocytic indices. No abnormalities in other cell lines. Admitted at [facility] in September for colonoscopy and hysteroscopy for [...] scope inApril showed resolution. VCE showing duodenitis. PLAN: Cause of anemia in this patient likely [...] cannot rule out underlying bone marrowdysplasia. Lab orders placed to be completed today include cbc/diff, iron screen, ferritin, sTfR, retic panel,ldh, SPEP, serum free light chains, immunoglobulin quant, haptoglobin, copper and zinc per GML. Can consider increasing dose of Venofer administered with each HD session. Can also consider changing Mircera to different formulation of LAVERNE. If cause of anemia is not identified and/or if anemia worsens may need to consider bone marrow biopsy for further evaluation. RTC in 1-2 weeks by telephone to review lab results RTC in three months with physician with cbc/diff, cmp, iron screen and ferritin TRINITY Dsouza documented in this encounter Nursing Notes * Ellyn Tilley CMA - 11/11/2022 3:18 PM EDT Patient identifed by name and birthdate Do you have any concerns about pain management for today's visit? No Living Will or Advance Directive for Health Care as noted on the problem list. [facility] is a way you can talk to your provider on line through e-mail. Would you like to sign up? I can activate it for you? NO Filed Vitals: 11/11/22 1518 BP: 90/40 Pulse: 64 Resp: 16 SpO2: 85% Weight: 108.9 kg (240 lb) Height: 1.575 m (5' 2") Patient was instructed to not get up on the exam table/exam chair until directed and assisted by their provider; patient is to remain seated in the chair/ wheelchair/ exam table/ exam chair for fall prevention and safety reasons. Patient is aware to have assistance to step down off exam table/exam chair with personnel. Patient voiced full comprehension of instructions. documented in this encounter Plan of Treatment Upcoming Encounters Date Type Specialty Care Team Description 12/25/2022 Home Visit [facility] Sallie Lynne RN [address] [place] [address] 01/17/2023 Office Visit Gastroenterology Ai Hunt CRNP [address] [place] [address] Scheduled Orders Name Type Priority Associated Diagnoses Orde r Schedule CBC WITH WBC DIFFERENTIAL Lab Routine Rectal bleeding ESRD on dialysis (HCC) Macrocytic anemia Expected: 11/28/2022 (Approximate), Expires: 02/11/2023 IRON SCREEN, INCLUDING TIBC Lab Routine Rectal bleeding ESRD on dialysis (HCC) Macrocytic anemia Expected: 11/28/2022 (Approximate), Expires: 02/11/2023 FERRITIN Lab Routine Rectal bleeding ESRD on dialysis (HCC) Macrocytic anemia Expected: 11/28/2022 (Approximate), Expires: 02/11/2023 SOLUBLE TRANSFERRIN RECEPTOR Lab Routine Rectal bleeding ESRD on dialysis (HCC) Macrocytic anemia Expected: 11/28/2022 (Approximate), Expires: 02/11/2023 RETICULOCYTE PANEL Lab Routine Rectal bleeding ESRD on dialysis (HCC) Macrocytic anemia Expected: 11/28/2022 (Approximate), Expires: 02/11/2023 LD Lab Routine Rectal bleeding ESRD on dialysis (HCC) Macrocytic anemia Expected: 11/28/2022 (Approximate), Expires: 02/11/2023 SERUM PROTEIN ELECTROPHORESIS REFLEX PROFILE Lab Routine Rectal bleeding ESRD on dialysis (HCC) Macrocytic anemia Expected: 11/28/2022 (Approximate), Expires: 02/11/2023 SERUM FREE LIGHT CHAINS Lab Routine Rectal bleeding ESRD on dialysis (HCC) Macrocytic anemia Expected: 11/28/2022 (Approximate), Expires: 02/11/2023 IMMUNOGLOBULIN QUANTITATIVE Lab Routine Rectal bleeding ESRD on dialysis (HCC) Macrocytic anemia Expected: 11/28/2022 (Approximate), Expires: 02/11/2023 HAPTOGLOBIN Lab Routine Rectal bleeding ESRD on dialysis (HCC) Macrocytic anemia Expected: 11/28/2022 (Approximate), Expires: 02/11/2023 COPPER, SERUM OR PLASMA Lab Routine Rectal bleeding ESRD on dialysis (HCC) Macrocytic anemia Expected: 11/28/2022 (Approximate), Expires: 02/11/2023 ZINC Lab Routine Rectal bleeding ESRD on dialysis (HCC) Macrocytic anemia Expected: 11/28/2022 (Approximate), Expires: 02/11/2023 Scheduled Procedures Name Priority Associated Diagnoses Date/Ti [...] on dialysis (HCC) End stage renal disease Rectal bleeding Hemorrhage of rectum and anus documented in this encounter Advance Directives Documents on File Type Date Recorded Patient 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 No Healthcare Agents on File Name Relationship Healthcare Agent Relationshi p Communication Wesley Hassan Spouse Health Care Agent Care Teams Seismology Teacher Relationship Specialty Start Date End Date Bella Power MD [address] [place] [address] [place] [address] PCP - General Family Medicine 04/02/19 documented as of this encounter
--- OUTSIDE RECORDS SUMMARY | 2023-01-25 20:39 | External Medical Summary ---
Author Name Unknown Address Unknown Organization [id number]:LABORATORY [facility] - [facility] [place] [address] Laboratory Report Ordering Provider Test Date Status ÓSCAR STEVENSON 11/28/2022 14:29:41 Final Observation Date Value Abnormality Reference (Units ) Status [place] light chains, Free, Serum 11/28/2022 14:29:41 168.21 Above high normal 3.30-19.40 (mg/L) Final Lambda light chains, free, Serum 11/28/2022 14:29:41 156.25 Above high normal 5.71-26.30 (mg/L) Final KAPPA LAMBDA FLC RATIO 11/28/2022 14:29:41 1.08 0.26-1.65 Final Performing Location LABORATORY [facility] - [facility] [address] [facility] [address]
--- OUTSIDE RECORDS SUMMARY | 2023-01-25 20:39 | External Medical Summary | Summary of Care ---
Author Name Unknown Organization [facility] Address [address] [facility] [place] [address] Phone [phone] Care Team Providers Care Dip Brazier Name Role Phone Bella Power MD Primary Care Prov ider Reason for Visit * Reason Onset Date Comments Appointment 11/27/2022 Encounter Details Date Type Department Care Team Description 11/27/2022 Telephone Hematology/Oncology [facility] [place] [address] [place] [address] Nita Pino CRNP [address] [place] [address] Appointment Allergies No known active allergiesdocumented [...] 1 Each 1 11/27/2018 Active DIURETIC TITRATION PLANIndications:Group Fitness Manager sandro heart failure with preserved ejection fraction [...] group B, by GOLD 2017 classification ([facility]) Inhale by mouth 1 Puff [...] WRAP) 30 g 11 11/09/2022 Active Nystatin 685421 UNIT/GM External Powder (Nystop) Apply topically to [...] mRNA, LNP-s, No Pre serve, 2-Dose Series ([employer]) 01/02/2021,06/21/2020,05/24/2020 COVID-19, mRNA, LNP-s, PF, B ooster, [...] Miscellaneous Notes * Telephone Encounter - RENÉ Aldana - 11/27/2022 3:21 PM EDT We received a call from Kami's Wesley. He was returning the office's call. I did try to get him transferred over the help desk assistant but unfortunately was not able to get through. Please give Wesley a call back at [phone]. Thank you! 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 No Healthcare Agents on File Name Relationship Healthcare Agent Relationshi p Communication Wesley Hassan Spouse Health Care Agent Care Teams Dip Brazier Relationship Specialty Start Date End Date Bella Power MD [address] [place] [address] [place] [address] PCP - General Family Medicine 04/02/19 documented as of this encounter
--- OUTSIDE RECORDS SUMMARY | 2023-01-25 20:39 | External Medical Summary | Summary of Care ---
Author Name Unknown Organization [facility] Address [address] [facility] [facility] [place] [address] Phone [phone] Care Team Providers Care Stars Coordinator Name Role Phone Bella Power MD Primary Care Prov ider Reason for Visit * Reason Onset Date Comments Appointment 11/27/2022 Encounter Details Date Type Department Care Team Description 11/27/2022 Telephone Hematology/Oncology [facility] [place] [address] [place] [address] Nita Pino CRNP [address] [place] [address] Appointment Allergies No known active allergiesdocumented [...] 1 Each 1 11/27/2018 Active DIURETIC TITRATION PLANIndications:Automobile Salesman sandro heart failure with preserved ejection fraction [...] ndications:COPD, group B, by GOLD 2017 classification ([facility]) Inhale by mouth 1 Puff in [...] WRAP) 30 g 11 11/09/2022 Active Nystatin 149703 UNIT/GM External Powder (Nystop) Apply topically to [...] mRNA, LNP-s, No Pre serve, 2-Dose Series ([employer]) 01/02/2021,06/21/2020,05/24/2020 COVID-19, mRNA, LNP-s, PF, B ooster, [...] RENÉ Chris - 11/28/2022 4:05 PM EDT I was able to schedule the patient for her 1-2 week telephone appt and labs in 3 months. However, with the mover of the department numbers the provider schedules are blocked for me and I cannot override and Sophy wasn't here to override. I offered 02/28 at 2:00 pm with Nita Pino & the patients accepted if you could possibly add this on the schedule for me. Thank you! * Telephone Encounter - RENÉ [...] try to get him transferred over the it desktop support technician but unfortunately was not able to get through. Please give Wesley a call back at [phone]. Thank you! 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 No Healthcare Agents on File Name Relationship Healthcare Agent Relationshi p Communication Wesley Hassan Spouse Health Care Agent Care Teams Stars Coordinator Relationship Specialty Start Date End Date Bella Power MD [address] [place] [address] [place] [address] PCP - General Family Medicine 04/02/19 documented as of this encounter
--- OUTSIDE RECORDS SUMMARY | 2023-01-25 20:39 | External Medical Summary ---
Author Name Unknown Address Unknown Organization [id number]:[facility] [address] [place] [address] Laboratory Report Ordering Provider Test Date Status ÓSCAR STEVENSON 11/28/2022 14:29:41 Final Observation Date Value Abnormality Reference (Units ) Status SYNC LEUKOCYTES IN BLOOD BY AUTOMATED COUNT 11/28/2022 14:29:41 8.87 4.00-10.80 (K/uL) Final Neutrophils/100 leukocytes in Blood by Manual count 11/28/2022 14:29:41 72.0 40.0-75.0 (%) Final Lymphocytes/100 leukocytes in Blood by Manual count 11/28/2022 14:29:41 13.0 Below low normal 18.0-42.0 (%) Final Monocytes/100 leukocytes in Blood by Manual count 11/28/2022 14:29:41 10.0 1.0-11.0 (%) Final Eosinophils/100 leukocytes in Blood by Manual count 11/28/2022 14:29:41 3.0 0.0-6.0 (%) Final Basophils/100 leukocytes in Blood by Manual count 11/28/2022 14:29:41 1.0 0.0-2.0 (%) Final Metamyelocytes/100 leukocytes in Blood by Manual count 11/28/2022 14:29:41 1.0 Above high normal <=0.0 (%) Final Neutrophils [#/volume] in Blood by Manual count 11/28/2022 14:29:41 6.39 1.80-7.70 (K/uL) Final Lymphocytes [#/volume] in Blood by Manual count 11/28/2022 14:29:41 1.15 1.00-4.80 (K/uL) Final Monocytes [#/volume] in Blood by Manual count 11/28/2022 14:29:41 0.89 0.00-1.10 (K/uL) Final Eosinophils [#/volume] in Blood by Manual count 11/28/2022 14:29:41 0.27 0.00-0.70 (K/uL) Final Basophils [#/volume] in Blood by Manual count 11/28/2022 14:29:41 0.09 0.00-0.20 (K/uL) Final Metamyelocytes [#/volume] in Blood by Manual count 11/28/2022 14:29:41 0.09 Above high normal <=0.00 (K/uL) Final Nucleated erythrocytes/100 leukocytes [Ratio] in Blood by Automated count 11/28/2022 14:29:41 Final Performing Location LABORATORY [facility] [address] [place] [address]
--- OUTSIDE RECORDS SUMMARY | 2023-01-25 20:39 | External Medical Summary ---
Author Name Unknown Address Unknown Organization [id number]:[facility] - [address] [place] [address] Laboratory Report Ordering Provider Test Date Status ÓSCAR STEVENSON 11/28/2022 14:29:41 Final Observation Date Value Abnormality Reference (Units ) Status IgG 11/28/2022 14:29:41 6164 257-3342 ( mg/dL) Final IgA 11/28/2022 14:29:41 237 70-400 (mg /dL) Final IgM 11/28/2022 14:29:41 44 40-230 (mg /dL) Final Performing Location LABORATORY [facility] - [address] [place] [address]
--- OUTSIDE RECORDS SUMMARY | 2023-01-25 20:39 | External Medical Summary | Summary of Care ---
Author Name Unknown Organization [facility] Address [address] [facility] [place] [address] Phone [phone] Care Team Providers Care Opening Machine Cleaner Name Role Phone Bella Power MD Primary Care Prov ider Reason for Visit * Reason Onset Date Comments Appointment 11/27/2022 Encounter Details Date Type Department Care Team Description 11/27/2022 Telephone Hematology/Oncology [facility] [place] [address] [place] [address] Nita Pino CRNP [address] [facility] [address] Appointment Allergies No known active allergiesdocumented [...] Each 1 11/27/2018 Active DIURETIC TITRATION PLANIndications:Medical Logistics Specialist sandro heart failure with preserved ejection fraction [...] 2017 classification ([facility]) Inhale by mouth 1 Puff in the [...] WRAP) 30 g 11 11/09/2022 Active Nystatin 211782 UNIT/GM External Powder (Nystop) Apply topically to [...] mRNA, LNP-s, No Pre serve, 2-Dose Series ([employer]) 01/02/2021,06/21/2020,05/24/2020 COVID-19, mRNA, LNP-s, PF, B ooster, [...] to get him transferred over the front maker but unfortunately was not able to get through. Please give Wesley a call back at [phone]. Thank you! * Telephone Encounter - RENÉ [...] Lynne RN [address] [place] [address] 01/17/2023 Office Visit Gastroenterology Ai Hunt CRNP [address] [place] [address] Scheduled Procedures Name Priority Associated Diagnoses Date/Ti [...] Documents on File Type Date Recorded Patient Solicitor Patent Expl anation Power of Engraver Letter 12/16/2018 10:33 AM Nate r of Engraver Letter Latest Code Status on File Code Status [...] the patient have Health Care Power of Engraver Letter? No Healthcare Agents on File Name Relationship Healthcare Agent Relationshi p Communication Wesley E Leighler Spouse Health Care Agent Care Teams Opening Machine Cleaner Relationship Specialty Start Date End Date Bella Power MD [address] [place] [address] [place] [address] PCP - General Family Medicine 04/02/19 documented as of this encounter
--- OUTSIDE RECORDS SUMMARY | 2023-01-25 20:39 | External Medical Summary | Summary of Care ---
Author Name Unknown Organization [facility] Address [address] [facility] [place] [address] Phone [phone] Care Team Providers Care Backup Administrator Name Role Phone Bella Power MD Primary Care Prov ider Reason for Visit * Reason Onset Date Comments Appointment 11/27/2022 Encounter Details Date Type Department Care Team Description 11/27/2022 Telephone Hematology/Oncology [facility] [place] [address] [place] [address] Nita Pino CRNP [address] [facility] [place] [address] Appointment Allergies No known active [...] 1 Each 1 11/27/2018 Active DIURETIC TITRATION PLANIndications:Book Or Script Editor sandro heart failure with preserved ejection fraction [...] ndications:COPD, group B, by GOLD 2017 classification ([facility]) Inhale by mouth 1 Puff in the [...] WRAP) 30 g 11 11/09/2022 Active Nystatin 143651 UNIT/GM External Powder (Nystop) Apply topically to [...] mRNA, LNP-s, No Pre serve, 2-Dose Series ([employer]) 01/02/2021,06/21/2020,05/24/2020 COVID-19, mRNA, LNP-s, PF, B ooster, [...] Sallie Lynne RN [address] [place] [address] 01/17/2023 Office Visit Gastroenterology Ai Hunt CRNP [address] [place] [address] Scheduled Procedures Name Priority Associated Diagnoses Date/Ti [...] Documents on File Type Date Recorded Patient Manager Clinical Informatics Expl anation Power of Accounts Payable Specialist 12/16/2018 10:33 AM Nate r of Accounts Payable Specialist Latest Code Status on File Code [...] the patient have Health Care Power of Accounts Payable Specialist? No Healthcare Agents on File Name Relationship Healthcare Agent Relationshi p Communication Wesley Hassan Spouse Health Care Agent Care Teams Backup Administrator Relationship Specialty Start Date End Date Bella Power MD [address] [place] [address] [place] [address] PCP - General Family Medicine 04/02/19 documented as of this encounter
--- OUTSIDE RECORDS SUMMARY | 2023-01-25 20:40 | External Medical Summary | Summary of Care ---
Author Name Unknown Organization [facility] Address [address] [facility] [place] [address] Phone [phone] Care Team Providers Care Carpet Finishing Supervisor Name Role Phone León Morillo MD Primary Care Prov ider Reason for Visit * Reason Comments Medication Refill Encounter Details Date Type Department Care Team Description 11/26/2022 Refill Family Medicine [address] [address] León Morillo MD [address] [place] [address] [place] [address] Primary parkinsonism (HCC) Allergies No known active allergiesdocumented as of this encounter (statuses as of 11/26/2022) Medications Medication Sig Dispensed Refills Start Date End Date Status ONETOUCH DELICA LANCETS 33G MISC Up to 4 times daily 100 Each 6 11/24/2014 Active Glucose Blood (ONETOUCH ULTRA BLUE) STRP Use as directed 4 times a day as needed (Diabetes). Use up to four times a day as directed 100 Strip 11 02/03/2018 Active Nebulizers (NEBULIZER COMPRESSOR) MISCIndications:MANAGER MAIL D, group B, by GOLD 2017 classification ([facility]) Inhale via nebulizer. Use as [...] Indications:COPD, group B, by GOLD 2017 classification ([facility]) Inhale by mouth 1 Puff [...] DAILY 28 g 2 11/30/2021 3 Active Pantoprazole Sodium 20 MG Oral Tablet Delayed Release (Protonix) Take 1 Tablet by mouth in the morning and 1 Tablet in the evening. 180 Tablet 1 04/15/2022 Active Auryxia 1 GM 210 MG(Fe) Oral [...] WRAP) 30 g 11 11/09/2022 Active Nystatin 639847 UNIT/GM External Powder (Nystop) Apply topically to affected area 2 times a day. 60 g 5 11/09/2022 Active Pregabalin 100 MG Oral Capsule (Lyrica)Indications :Primary parkinsonism (HCC) Take 1 capsule twice daily. May take 1 extra capsule after dialysis. 90 Capsule 1 11/26/2022 Active Pregabalin 100 MG Oral Capsule (Lyrica)Indications :Primary parkinsonism (HCC) Take 1 capsule twice daily. May take 1 extra capsule after dialysis. 90 Capsule 1 08/22/2022 3 Discontinu ed(Refill) documented as of this encounter (statuses as of 11/26/2022) Active Problems Problem Noted Date Serrated polyp [...] as of this encounter (statuses as of 11/26/2022) Resolved Problems Problem Noted Date Resolved Date [...] as of this encounter (statuses as of 11/26/2022) Immunizations Name Administration Dates Next Due COVID-19 mRNA, LNP-s, No Pre serve, 2-Dose Series (Reaction) 01/02/2021,06/21/2020,05/24/2020 COVID-19, mRNA, LNP-s, PF, B ooster, [...] encounter Miscellaneous Notes * Telephone Encounter - León Rubio MD - 11/26/2022 5:16 PM EDT Signed Prescriptions: Disp Refills Pregabalin 100 MG Oral Capsule (Lyrica) 90 Cap*1 Sig: Take 1 capsule twice daily. May take 1 extra capsule after dialysis.Authorizing Provider: LEÓN MORILLO documented in this encounter Plan of Treatment Upcoming Encounters Date Type Specialty Care Team Description 12/25/2022 Home Visit [facility] Sallie Lynne, RN [address] [place] [address] 01/17/2023 Office Visit Gastroenterology Ai Hunt CRNP [address] [place] [address] Scheduled Procedures Name Priority Associated Diagnoses Date/Ti [...] as of this encounter Visit Diagnoses Diagnosis Primary parkinsonism (HCC) Paralysis agitans documented in this encounter Advance Directives Documents on File Type Date Recorded Patient Bin Worker Expl anation Power of Buildings And Grounds Superintendent 12/16/2018 10:33 AM Nate r of Buildings And Grounds Superintendent Latest Code Status on File Code Status [...] the patient have Health Care Power of Buildings And Grounds Superintendent? No Healthcare Agents on File Name Relationship Healthcare Agent Relationshi p Communication Wesley Hassan Spouse Health Care Agent Care Teams Carpet Finishing Supervisor Relationship Specialty Start Date End Date León Morillo MD [address] [place] [address] [place] [address] PCP - General Family Medicine 04/02/19 documented as of this encounter
--- OUTSIDE RECORDS SUMMARY | 2023-01-25 20:40 | External Medical Summary | Summary of Care ---
Author Name Unknown Organization [facility] Address [address] [facility] [place] [address] Phone [phone] Care Team Providers Care Tool Dresser Name Role Phone Bella Power MD Primary Care Prov ider Encounter Details Date Type Department Care Team Description 10/16/2022 Home Visit [facility] [address] [place] [address] Sallie Lynne, RN [address] [facility] [place] [address] Allergies No known active allergiesdocumented as of this encounter (statuses as of 11/20/2022) Medications Medication Sig Dispensed Refills Start Date End Date Status ONETOUCH DELICA LANCETS 33G MISC Up to 4 times daily 100 Each 6 11/24/2014 Active Glucose Blood (ONETOUCH ULTRA BLUE) STRP Use as directed 4 times a day as needed (Diabetes). 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 90 Tablet 1 08/21/2022 4 Active Pregabalin 100 MG Oral Capsule (Lyrica)Indications :Primary parkinsonism (HCC) Take 1 capsule twice daily. May take 1 extra capsule after dialysis. 90 Capsule 1 08/22/2022 Active Mupirocin 2 % External Ointment (Bactroban) [...] WITH OCCLUSIVE DRESSING (SARAN WRAP) 0 05/11/2022 3 Discontinu ed(Refill) Nystatin 538748 UNIT/GM External Powder (Nystop) apply one application externally twice daily 30 g 0 09/09/2022 3 Discontinu ed(Refill) Hospital, Clinic, or Other Facility Administered Medication Ordered Dose Route Frequency Start Date End Date Status Polyethylene Glycol 3350 (Miralax) oral powder 17 gIndications:Iron deficiency anemia, unspecified iron deficiency anemia type 17 g OR ONCE 10/23/2022 10/23/2022 Ended Simethicone CHEW 125 mgIndications:Iron deficiency anemia, unspecified iron deficiency anemia type 125 mg OR ONCE 10/23/2022 10/23/2022 Ended documented as of this encounter (statuses as of 11/20/2022) Active Problems Problem Noted Date Serrated polyp [...] as of this encounter (statuses as of 11/20/2022) Resolved Problems Problem Noted Date Resolved Date [...] as of this encounter (statuses as of 11/20/2022) Immunizations Name Administration Dates Next Due COVID-19 mRNA, LNP-s, No Pre serve, 2-Dose Series (Pfizer) 01/02/2021,06/21/2020,05/24/2020 Covid-19 Mrna, Lnp-s, No Pre serve, Booster (Moderna) 07/23/2021 Covid-19, Mrna, Lnp-s, Pf, B [...] Sign Reading Time Taken Comments Blood Pressure 106/58 10/16/2022 4:58 PM EDT Pulse 68 10/16/2022 4:58 PM EDT Temperature 36.8 C (98.3 F) 10/16/2022 4:58 PM ED T Respiratory Rate 18 10/16/2022 4:58 PM EDT Oxygen Saturation 98% 10/16/2022 4:58 PM EDT Inhaled Oxygen Concentration - - Weight - - Height - - Body Mass Index - - documented in this encounter Functional Status Functional [...] as of this encounter Progress Notes * Sallie Lynne RN - 10/16/2022 11:12 AM EDT [facility] Principle Software Engineer Visit Date: 10/16/2022 Time: 11:12 AM Name: Kami Hassan : 1945 Current Concerns: Patient seen for follow up- ESRD on HD, PD, HTN, CHF, RENÉ October 23 for video swallow Last evening was assisting patient to toilet- has sling for patient to stand up- patient become weak in the arms from holding weight- lowered to floor. No injuries noted. Patient reports having a lot of discomfort last evening but feels ok today. VS wnl Lungs clear bilaterally Sob with exertion No LE edema noted Voids very little Bowels wnl Appetite good Fluid restriction Problems/Symptoms: Review of Systems Constitutional: Negative. HENT: Negative. Eyes: Negative. Respiratory: Positive for shortness of breath. Cardiovascular: Negative. Gastrointestinal: Negative. Endocrine: Negative. Genitourinary: Negative. Musculoskeletal: Positive for gait problem. Skin: Negative. Hematological: Negative. Psychiatric/Behavioral: Negative. Physical Exam: BP 106/58 (BP Site: Left Arm, BP Position: Sitting, BP Cuff Size: Regular) | Pulse 68 | Temp 36.8 C (98.3 F) (Tympanic) | Resp 18 | SpO2 98% Pain 0 Physical Exam Constitutional: Appearance: Normal appearance. Cardiovascular: Rate and Rhythm: Normal rate. Pulses: Normal pulses. Heart sounds: Normal heart sounds. Pulmonary: Effort: Pulmonary effort is normal. Breath sounds: Normal breath sounds. Abdominal: General: Bowel sounds are normal. Palpations: Abdomen is soft. Musculoskeletal: General: Normal range of motion. Skin: General: Skin is warm and dry. Capillary Refill: Capillary refill takes 2 to 3 seconds. Neurological: General: No focal deficit present. Mental Status: She is alert. Psychiatric: Mood and Affect: Mood normal. Behavior: Behavior normal. [facility] Completed this Visit: Yes. [facility]: Reason Completed: Status post fall [facility] ([facility]) Fall Risk Assessment Tool Age 65+: Yes (10/16/221099) Diagnosis (3 or more co-existing): Yes (10/16/221099) Prior history of falls within 3 months: Yes (10/16/221099) Incontinence: No (10/16/221099) Visual impairment: Yes (10/16/221099) Impaired functional mobility: Yes (10/16/221099) Environmental hazards: No (10/16/221099) Poly Pharmacy (4 or more prescriptions - any type): Yes (10/16/221099) Pain affecting level of function: No (10/16/221099) Cognitive impairment: Yes (08/02/23 1100) Score - a score of 4 or more is considered at risk for fallin (10/16/22 1100) [facility] Interventions: Fall education provided, reviewed/provided Fall brochure Treatment/Plan: Continue medications as prescribed Keep all upcoming MD appointments Fall precautions- jj lift Dialysis Tue/Thur/Sat Fluid restriction Fistula right arm RN CM follow up in 4 weeks Home Interventions Provided: Reinforced current Plan of Care, including self-management and medication regimen Patient's Goals of Care: 1. Stay out of the hospital 2. Not to get sick Patient's 'Red Flags': 1. Weakness 2. Falls 3. Mental status change Patient Needs to Remember: Call [facility] with any medical concerns/ red flags Referrals Needed: n/a Follow Up: Is there cellular connectivity/connectivity in the home? Yes Does the patient have internet in the home? No Patient encouraged to call the intake phone number for all urgent but not emergent issues. Scheduled to follow up with patient in 4 weeks. Sallie Dubon RN 10/16/2022 11:12 AM documented in this encounter Plan of Treatment Upcoming Encounters Date Type Specialty Care Team Description 11/20/2022 Home Visit [facility] Sallie Lynne, STEFFEN [address] [facility] [place] [address] 01/17/2023 Office Visit Gastroenterology Ai Hunt CRNP [address] [facility] [place] [address] Scheduled Procedures Name Priority Associated Diagnoses Date/Ti me COLONOSCOPY FLEXIBLE PROXIMA L DIAGNOSTIC Recall Encounter for screening colonoscopy Health Maintenance Due Date Last Done Comments Zoster Vaccines (1 of 2) 12/18/2011 10/23/2011 Depression Screening, Annual for Pts 12 and Over 01/22/2020 01/21/2019 Influenza Vaccine (FLU shot) (#1) 2022 12/29/2021, 05/31/2021, 11/16/2019, Additional history exists TSH 08/11/2023 08/10/2022, 05/15, 08/21/2020, Additional history exists O2 ASSESSMENT COMPLETED IN P AST YEAR FOR COPD 11/12/2023 11/11/2022 Diabetic Foot Exam Discontinued 08/16/2020, 0 08/26/2019, [...] Documents on File Type Date Recorded Patient Paving Foreman Expl anation Power of Child Day Care Teacher 12/16/2018 10:33 AM Nate r of Child Day Care Teacher Latest Code Status on File Code Status [...] the patient have Health Care Power of Child Day Care Teacher? No Healthcare Agents on File Name Relationship Healthcare Agent Relationshi p Communication Wesley Hassan Spouse Health Care Agent Care Teams Tool Dresser Relationship Specialty Start Date End Date Bella Power MD [address] [place] [address] [place] [address] PCP - General Family Medicine 04/02/19 documented as of this encounter
--- OUTSIDE RECORDS SUMMARY | 2023-01-25 20:40 | External Medical Summary | Summary of Care ---
Author Name Unknown Organization [facility] Address [address] [facility] [place] [address] Phone [phone] Care Team Providers Care Telecom Analyst Name Role Phone Bella Power MD Primary Care Prov ider Encounter Details Date Type Department Care Team Description 11/05/2022 Result Scan Unspecified Department <No scans attached> Allergies No known active allergiesdocumented as of this encounter (statuses as of 11/13/2022) Medications Medication Sig Dispensed Refills Start Date [...] 1 Each 1 11/27/2018 Active DIURETIC TITRATION PLANIndications:Teacher Home Therapy sandro heart failure with preserved ejection fraction [...] group B, by GOLD 2017 classification ([facility]) Inhale by mouth 1 Puff [...] 4 Active Pregabalin 100 MG Oral Capsule (Lyrica)Indications: [...] as of this encounter (statuses as of 11/13/2022) Active Problems Problem Noted Date Serrated polyp [...] as of this encounter (statuses as of 11/13/2022) Resolved Problems Problem Noted Date Resolved Date [...] as of this encounter (statuses as of 11/13/2022) Immunizations Name Administration Dates Next Due COVID-19 [...] Visit [facility] Sallie Lynne, RN [address] [place] [address] 01/17/2023 Office Visit Gastroenterology Ai Hunt CRNP [address] [place] [address] Scheduled Procedures Name Priority Associated Diagnoses Date/Ti [...] P AST YEAR FOR COPD 11/12/2023 11/11/2022 COVID-19 Vaccine Completed 01/17/2022, 11/2021, 01/02/2021, Additional history exists Colonoscopy Discontinued 09/20/2022, 11/15, 11/27/2015, Additional history exists Colorectal Cancer Screening Discontinued Cologuard Discontinued Fecal Occult Blood Test Discontinued Sigmoidoscopy Discontinued documented as of this encounter Medical Devices Not on filedocumented as of this encounter Procedures Procedure Name Priority Date/Time Associated Diagnosis Comments OUTSIDE LAB RESULTS 11/05/2022 documented in this encounter Results * OUTSIDE LAB RESULTS (11/05/2022) 11/05/2022 No Physician Data Unknown LABORATORY documented in this encounter Advance Directives Documents on File Type Date Recorded Patient Fingernail Sculpturer Expl anation Power of Occupational Health Physiotherapist 12/16/2018 10:33 AM Nate r of Occupational Health Physiotherapist Latest Code Status on File Code Status [...] the patient have Health Care Power of Occupational Health Physiotherapist? No Healthcare Agents on File Name Relationship Healthcare Agent [facility] Wesley Hassan Spouse Health Care Agent Care Teams Telecom Analyst Relationship Specialty Start Date End Date Bella Power MD [address] [place] [address] [place] [address] PCP - General Family Medicine 04/02/19 documented as of this encounter
--- OUTSIDE RECORDS SUMMARY | 2023-01-25 20:40 | External Medical Summary | Summary of Care ---
Author Name Unknown Organization [facility] Address [address] [place] [address] Phone [phone] Care Team Providers Care Head Of Insight Name Role Phone Bella Power MD Primary Care Prov ider Reason for Visit * Reason Onset Date Comments Advice 10/31/2022 Encounter Details Date Type Department Care Team Description 10/31/2022 Telephone Gastroenterology, [facility] [address] [place] [address] Ai Hunt CRNP [address] [place] [address] Advice Allergies No known active allergiesdocumented as of this encounter (statuses as of 10/31/2022) Medications Medication Sig Dispensed Refills Start Date [...] 1 Each 1 11/27/2018 Active DIURETIC TITRATION PLANIndications:Order Checker Packer Processer sandro heart failure with preserved ejection fraction [...] group B, by GOLD 2017 classification ([facility]) Inhale by mouth 1 Puff in the [...] the evening. 180 Tablet 1 04/15/2022 Active Lidocaine-Prilocaine 2.5-2.5 % External Cream (Emla) APPLY SMALL AMOUNT TO ACCESS SITE (AVF) 1 TO 2 HOURS BEFORE DIALYSIS. COVER WITH OCCLUSIVE DRESSING (SARAN WRAP) 0 05/11/2022 Active Auryxia 1 GM 210 MG(Fe) Oral [...] twice daily 22 g 0 09/09/2022 Active Nystatin 356113 UNIT/GM External Powder (Nystop) apply one application externally twice daily 30 g 0 09/09/2022 Active Carbidopa-Levodopa 25-100 MG Oral Tablet (Sinemet) TAKE ONE TABLET BY MOUTH THREE TIMES A DAY WITH MEALS 90 Tablet 5 09/14/2022 4 Active documented as of this encounter (statuses as of 10/31/2022) Active Problems Problem Noted Date Serrated polyp [...] as of this encounter (statuses as of 10/31/2022) Resolved Problems Problem Noted Date Resolved Date [...] as of this encounter (statuses as of 10/31/2022) Immunizations Name Administration Dates Next Due COVID-19 mRNA, LNP-s, No Pre serve, 2-Dose Series (Pfizer) 01/02/2021,06/21/2020,05/24/2020 Covid-19 Mrna, Lnp-s, No Pre serve, Booster (Moderna) 07/23/2021 Covid-19, Mrna, Lnp-s, Pf, B ivalent, 50 Mcg, IM, 12 yrs and above (Moderna) 01/17/2022 Pneumococcal Conjugate Vacc, 13 Valent (Prevnar) 10/28/2014 Pneumococcal Polysaccharide PPV23 (Pneumovax) 03/22/2016,12/04/2009 Seasonal Influenza, Quadriva lent Hd (Fluzone Hd) 05/31/2021 Seasonal Influenza, Quadriva lent Hd, 65+ Yrs 11/16/2019 Seasonal Influenza, Quadriva lent, No Preserve, 6 Mons & Above, IM 12/29/2021,01/03/2019,12/09/2017 Seasonal Influenza, Quadriva lent, No Preserve, IM [...] encounter Miscellaneous Notes * Telephone Encounter - Cielo Roberson PA-C - 10/31/2022 10:25 AM EDT Called patient's . Patient is having BMs about 2-3 times daily and is having intermittent rectal bleeding, sometimes in large amounts. No abdominal pain. Recent CBC 10/04/22 showed a Hgb of 10.4. VCE showed some inflammation of the small bowel and PPI was recommended, which she already takes BID. Patient has known hemorrhoids and diverticulosis. She is not taking any fiber supplementation. She has a rx for hydrocortisone ND cream but does not use this frequently. I asked that she start Benefiber - 1 TBSP daily, and use the hydrocortisone cream twice daily, every day. He is agreeable to try this and will call if symptoms worsen, or just do not improve. * Telephone Encounter - RENÉ [place] - 10/31/2022 9:58 AM EDT Patient's Wesley calling today 10/31/22 saying that his is still having rectal bleeding. He is asking if this is something they should be concerned about, he is asking if someone can please reach out to him at [phone]. Thank you documented in this encounter Plan of Treatment Upcoming Encounters Date Type Specialty Care Team Description 11/08/2022 [facility] Visit [facility] Caleb Real PA-C [address] [place] [address] 11/11/2022 Office Visit Hematology Oncology Nita Pino CRNP [address] [place] [id number] 11/20/2022 Home Visit [facility] Sallie Lynne RN [address] [facility] [place] [address] 01/17/2023 Office Visit Gastroenterology Ai Hunt CRNP [address] [place] [address] Scheduled Procedures Name Priority Associated Diagnoses Date/Ti [...] COMPLETED IN P AST YEAR FOR COPD 10/17/2023 10/16/2022 COVID-19 Vaccine Completed 01/17/2022, 11/2021, 01/02/2021, Additional history exists Colonoscopy Discontinued 09/20/2022, 11/15, 11/27/2015, Additional history exists Colorectal Cancer Screening Discontinued Cologuard Discontinued Fecal Occult Blood Test Discontinued Sigmoidoscopy Discontinued documented as of this encounter Medical Devices Not on filedocumented as of this encounter Advance Directives Documents on File Type Date Recorded Patient Service Manager Expl anation Power of Inside Technical Sales Representative 12/16/2018 10:33 AM Nate peralta of Inside Technical Sales Representative Latest Code Status on File Code Status [...] patient have Health Care Power of Inside Technical Sales Representative? No Healthcare Agents on File Name Relationship Healthcare Agent Relationshi p Communication Wesley Hassan Spouse Health Care Agent Care Teams Head Of Insight Relationship Specialty Start Date End Date Bella Power MD [address] [place] [address] [place] [address] PCP - General Family Medicine 04/02/19 documented as of this encounter
--- OUTSIDE RECORDS SUMMARY | 2023-01-25 20:40 | External Medical Summary | Summary of Care ---
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 ([facility])*; Diabetes mellitus with ESRD (end-stage renal disease) ([facility]); AVF (arteriovenous fistula) ([facility]); 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[facility]); Advanced care planning/counseling discussion; Constipation, unspecified constipation type Allergies No known active allergiesdocumented as of this encounter (statuses as of 11/10/2022) Medications Medication Sig Dispensed Refills Start Date End Date Status ONETOUCH DELICA LANCETS 33G MISC Up to 4 times daily 100 Each 6 11/24/2014 Active Glucose Blood (ONETOUCH ULTRA BLUE) STRP Use as directed 4 times a day as needed (Diabetes). Use up to four times a day as directed 100 Strip 11 02/03/2018 Active Nebulizers (NEBULIZER COMPRESSOR) MISCIndications:SPANISH PROFESSOR D, group B, by GOLD 2017 classification ([facility]) Inhale via nebulizer. Use as directed. [...] group B, by GOLD 2017 classification ([facility]) Inhale by mouth 1 Puff in [...] WRAP) 30 g 11 11/09/2022 Active Nystatin 849857 UNIT/GM External Powder (Nystop) Apply topically to affected area 2 times a day. 60 g 5 11/09/2022 Active Lidocaine-Prilocain e 2.5-2.5 % External Cream (Emla) APPLY SMALL AMOUNT TO ACCESS SITE (AVF) 1 TO 2 HOURS BEFORE DIALYSIS. COVER WITH OCCLUSIVE DRESSING (SARAN WRAP) 0 05/11/2022 3 Discontinu ed(Refill) Nystatin 362057 UNIT/GM External Powder (Nystop) apply one application externally twice daily 30 g 0 09/09/2022 3 Discontinu ed(Refill) documented as of this encounter (statuses as of 11/10/2022) Active Problems Problem Noted Date Serrated polyp [...] as of this encounter (statuses as of 11/10/2022) Resolved Problems Problem Noted Date Resolved Date [...] the pl SDH (subdural hematoma) 04/20/2019 08/05/19 20 Overview: acute Ecchymosis 04/20/2019 09/08/2020 Old myocardial [...] as of this encounter (statuses as of 11/10/2022) Immunizations Name Administration Dates Next Due COVID-19 [...] Sign Reading Time Taken Comments Blood Pressure 110/66 11/08/2022 12:07 PM EDT Pulse - - Temperature - - Respiratory Rate - - Oxygen Saturation - - Inhaled Oxygen Concentration - - Weight - [...] as of this encounter Progress Notes * Caleb Real PA-C - 11/08/2022 11:10 AM EDT [facility] Palliative [facility] Progress Note Date: 11/08/2022 Time: 12:00 Name: Kami Hassan : 1945 Purpose of Visit: follow up Location: Home Individual(s) present: Patient and Spouse Coordination of Care: Primary Care and nephrology, heme/onc ASSESSMENT/PLAN: (I13.2, I50.42, N18.6, Z99.2) 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 ([facility]) (primary encounter diagnosis) Plan: remains on dialysis tues, thurs, sat (E11.22, N18.6) Diabetes mellitus with ESRD (end-stage renal disease) ([facility]) Plan:not on Rx Hemoglobin AIC Results: Lab Results Component Value Date/Time HEMOGLOBIN A1C - [facility] 5.3 05/31/2021 03:04 PM HEMOGLOBIN A1C - [facility] 5.2 08/21/2020 01:14 PM HEMOGLOBIN A1C - [facility] 5.1 03/23/2019 04:45 PM HEMOGLOBIN A1C - [facility] 4.9 05/01/2018 02:07 PM HEMOGLOBIN A1C - [facility] 5.3 10/13/2017 01:44 PM (I77.0) AVF (arteriovenous fistula) ([facility]) Plan: reorder emla cream to help with dialysis discomfort (G20, F02.80) 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[facility]) Plan: 07/10 care by Unsure how long spouse will be able to provide care needed, may require SNF at some point (Z71.89) Advanced care planning/counseling discussion Plan: prefers full treatment (K59.00) Constipation, unspecified constipation type Plan: suggested to add miralax, and adjust as needed to maintain daily bowels Advance care planning/Goals of Care: See documentation in Advance Care Planning module and ACP note. SUBJECTIVE: Family present: yes, reviewed Patient is 77 year old female with ESRD on dialysis. Also has dementia, possibly related to Parkinsons disease, and is wheelchair bound at this time. Other comorbidities include CHF, COPD, DM tpe 2, dyslipidemia, AYSHA, RENÉ on CPAP, anemia, hypothyroidism, RLS, RA. Lives with spouse in single story home. He is providing assistance with all ADLs. Has a lift to assist with transfers. Also has a lift for his truck to help get her in and out for appts/dialysis. She is currently getting dialysis tues,thurs,sat, 4 hour sessions. Overall reports feeling "ok" today. Spouse reports she is still having some bleeding at times. Recently had colonoscopy, hysteroscopy, as well as video capsule. Bleeding is mostly bright red. She does have hemorrhoids. Complains of constipation at times, sometimes going 3-4 days without a BM. Currently using fiber and colace. Denies abd pain, n/v. Pain: none Nausea: no Vomiting: no Confusion: yes, dementia Somnolence: naps daily Constipation: no Dyspnea: denies Anxious: no Support: spouse Med Management: spouse Ambulates: electric scooter HISTORY: Social History Tobacco Use Smoking status: Former Packs/day: 0.25 Years: 50.00 Pack years: 12.50 Types: Cigarettes Quit date: 04/20/1989 Years since quittin.5 Smokeless tobacco: Never Tobacco comments: smoked since 19 years of age. Smokes a pack every 3-4 days. Substance Use Topics Alcohol use: Never 77 year old year-old female with the following active problems: Patient Active Problem List Diagnosis Code ADVANCE DIRECTIVE INFORMATION Meniere's disease, cochlear, active H81.09 Hypothyroidism due to acquired atrophy of thyroid E03.4 Steatohepatitis, non-alcoholic K75.81 Type 2 diabetes mellitus with hemoglobin A1c goal of less than 7.0% ([facility]) E11.9 Restless leg syndrome G25.81 Dyslipidemia, goal LDL below 100 E78.5 AYSHA (generalized anxiety disorder) F41.1 RENÉ on CPAP G47.33, Z99.89 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 factor ([facility]) M05.741, M05.742 Primary parkinsonism ([facility]) G20 History of non-ST elevation myocardial infarction (NSTEMI) I25.2 Venous stasis dermatitis of both lower extremities I87.2 COPD, group B, by GOLD 2017 classification ([facility]) J44.9 Chronic heart failure with preserved ejection fraction ([facility]) I50.32 Mild neurocognitive disorder G31.84 Iron deficiency anemia due to chronic blood loss D50.0 Type 2 diabetes mellitus with diabetic dermatitis, without long-term current use of insulin ([facility]) E11.620 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 ([facility]) I13.2, I50.40, Z99.2, N18.6 Diabetes mellitus with ESRD (end-stage renal disease) ([facility]) E11.22, N18.6 Personal history of fall Z91.81 BMI 38.0-38.9,adult Z68.38 Dependence on renal dialysis ([facility]) Z99.2 History of CVA (cerebrovascular accident) Z86.73 AVF (arteriovenous fistula) ([facility]) 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[facility]) G20, F02.80 Palliative care encounter Z51.5 Acquired hypothyroidism E03.9 Rectal bleeding K62.5 Serrated polyp of colon K63.5 Current Outpatient Medications Medication Sig Dispense Refill [...] Tablet in the evening. 180 Tablet 1 Lidocaine-Prilocaine 2.5-2.5 % External Cream (Emla) APPLY SMALL AMOUNT TO ACCESS SITE (AVF) 1 TO 2HOURS BEFORE DIALYSIS. COVER WITH OCCLUSIVE DRESSING (SARAN WRAP) Auryxia 1 GM 210 MG(Fe) Oral Tablet [...] application externally twice daily 22 g 0 Nystatin 666117 UNIT/GM External Powder (Nystop) apply one application externally twice daily 30 g 0 Carbidopa-Levodopa 25-100 MG Oral Tablet (Sinemet) TAKE ONE TABLET BY MOUTH THREE TIMES A DAY WITH MEALS 90 Tablet 5 No current facility-administered medications for this visit. Physical Exam: BP Readings from Last 3 Encounters: 10/23/22 112/62 10/16/22 106/58 10/04/22 102/58 { Wt Readings from Last 3 Encounters: 10/04/22 105.7 kg (233 lb) 10/03/22 105.9 kg (233 lb 8 oz) 09/12/22 108.4 kg (239 lb) Vital signs: There were no vitals taken for this visit. General: alert, no distress, and obese Neuro: alert & oriented x 2 with fluent speech Heart: regular rate & rhythm and no murmur Lungs: no chest wall tenderness, decreased breath sounds, no wheeze, no rales, no rhonchi Abdomen: abdomen soft, non-tender, obese, normal bowel sounds, and no rebound or guarding Ext: no edema Recent Results: Component Latest Ref Rn 10/04/2022 WBC 4.00 - 10.80 K/uL 6.18 Neutrophils % 40.0 - 75.0 % 64.6 Lymphocytes % 18.0 - 42.0 % 17.2 (L) Monocytes % 1.0 - 11.0 % 9.5 Eosinophils % 0.0 - 6.0 % 5.8 Basophils % 0.0 - 2.0 % 2.3 (H) Immature Granulocytes % 0.0 - 2.0 % 0.6 Absolute Neutrophils 1.80 - 7.70 K/uL 3.99 Absolute Lymphocytes 1.00 - 4.80 K/ul 1.06 Absolute Monocytes 0.00 - 1.10 K/uL 0.59 Absolute Eosinophils 0.00 - 0.70 K/uL 0.36 Absolute Basophils 0.00 - 0.20 K/uL 0.14 Absolute Immature Granulocytes 0.00 - 0.20 K/uL 0.04 WBC 4.00 - 10.80 K/uL 6.18 RBC [...] fL 12.1 nRBCs <=0 /100 WBCs 0 Triglycerides <=174 mg/dL 135 Cholesterol <200 mg/dL 135 HDL Cholesterol >49 mg/dL 63 Non-HDL Cholesterol <=159 mg/dL 72 LDL Cholesterol <=129 mg/dL 45 Iron 33 - 151 ug/dL 44 Iron Binding Capacity 250 - 425 ug/dL 268 Transferrin Saturation Percent 15 - 55 % 16 Ferritin 13 - 150 ng/mL 419 (H) Vitamin B12 232 - 1,245 pg/mL 1,196 Folic Acid >4.5 ng/mL >20.0 (L) Low (H) High See top of note for assessment/plan Scheduled appointments in the next 60 days: Future Appointments-next 60 days Date/Time Provider Specialty Dept Phone 11/08/2022 3:30 PM [facility] [phone] 11/11/2022 3:00 PM (Arrive by 2:45 PM) [facility] [phone] 11/20/2022 10:00 AM [facility] [phone] 01/17/2023 2:00 PM (Arrive by 1:45 PM) [facility] [phone] [facility], [address] [address] documented in this encounter Miscellaneous Notes * ACP (Advance Care Planning) - Caleb Real PA-C - 11/10/2022 8:53 AM EDT Images from the original note were not included. Patient-centered Communication 11/08/2022 The patient/surrogate voluntarily agreed to participate in advance care planning discussion. They were advised that this is a separate service which may incur out of pocket cost in the form of copayment and/or deductibles. Location: Home Individual(s) present for conversation: Patient and Spouse Decisions Synopsis [employer] Most Recent Value Past ~10 years 11/10/2022 08:52 Decisions CPR decision: Patient chooses CPR 11/10/2022 Patient chooses CPR Intubation/Mechanical Ventilation decision: Patient chooses Intubation/mechanical ventilation 11/10/2022 Patient chooses Intubation/mechanical ventilation Non-invasive ventilation or BIPAP decision: Patient chooses non-invasive ventilation. Select interventions below 06/17/2022 Non-Invasive Ventilation Interventions: CPAP;BIPAP;NIV 06/17/2022 Antibiotic therapy decision: Patient chooses Antibiotic therapy 11/10/2022 Patient chooses Antibiotic therapy Artificial nutrition decision: Declines Artificial nutrition 06/17/2022 IV hydration decision: Patient chooses IV hydration 11/10/2022 Patient chooses IV hydration Chemotherapy decision: Declines Chemotherapy 06/17/2022 Blood transfusion decision: Patient chooses Blood transfusion 06/17/2022 Lab draw decision: Patient chooses Lab draws 06/17/2022 Dialysis decision: Patient chooses Dialysis 11/10/2022 Patient chooses Dialysis Additional Comments Discerning What Matters Most to the Patient: Synopsis [employer] Most Recent Value Past ~10 years 11/10/2022 08:52 Discerning What Matters Most to the Patient In their own words, patient's UNDERSTANDING of their illness is: Understands that she has ESRD requiring dialysis 05/26/2020 Their current SYMPTOMS include: Tiredness;Reduced overall well being;Depression 11/10/2022 Tiredness;Reduced overall well being;Depression They say their illness has CHANGED THEIR LIFE by: Less enjoyment (quality of life);Feel like a burden to family/loved ones requires assistance with all ADLs 11/10/2022 Less enjoyment (quality of life);Feel like a burden to family/loved ones requires assistance with all ADLs Was PROGNOSIS discussed? Yes 05/26/2020 Prognosis was discussed today as likely to live: Several years Dialysis dependent for life. Likely to within weeks if dialysis were stopped 05/26/2020 The patient's HOPES are: -- hoping to walk 04/14/2020 The patient defines LIVING WELL as: Spending time at home painting and doing crafts 09/08/2020 The patient's FEARS/WORRIES about illness are: -- unable to walk; unable do more for herself, increasing dependency 04/14/2020 Source: Content from [facility] Program Aligning Care With What Matters Most: Synopsis [employer] Most Recent Value Past ~10 years 11/10/2022 08:52 Aligning Care With What Matters Most Interventions/Choices: CPR;Intubation/mechanical ventilation;Dialysis;Antibiotic therapy;IV hydration 11/10/2022 CPR;Intubation/mechanical ventilation;Dialysis;Antibiotic therapy;IV hydration Source: Content from [facility] Program 35 minutes spent in direct [id number] discussion today, Caleb Real PA-C documented in this encounter Plan of Treatment Upcoming Encounters Date Type Specialty Care Team Description 11/11/2022 Office Visit Hematology Oncology Nita Pino CRNP [address] [place] [address] 11/20/2022 Home Visit [facility] Sallie Lynne RN [address] [place] [address] 01/17/2023 Office Visit Gastroenterology Ai Hunt CRNP [address] [place] [address] Scheduled Procedures Name Priority Associated Diagnoses Date/Ti [...] as of this encounter Visit Diagnoses Diagnosis 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 ([facility])- Primary Diabetes mellitus with ESRD (end-stage renal disease) ([facility]) Type II or unspecified type diabetes mellitus with renal manifestations, not stated as uncontrolled AVF (arteriovenous fistula) ([facility]) Arteriovenous fistula, acquired 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[facility]) Advanced care planning/counseling discussion Other specified counseling Constipation, unspecified constipation type documented in this encounter Advance Directives Documents on File Type Date Recorded Patient Dairy Products Maker Expl anation Power of Roll Dough Divider 12/16/2018 10:33 AM Nate r of Roll Dough Divider Latest Code Status on File Code Status [...] the patient have Health Care Power of Roll Dough Divider? No Healthcare Agents on File Name Relationship Healthcare Agent [facility] Communication Wesley Hassan Spouse Health Care Agent Care Teams Epic Cupid Specialists Relationship Specialty Start Date End Date Bella Power MD [address] [place] [address] [place] [address] PCP - General Family Medicine 04/02/19 documented as of this encounter
--- OUTSIDE RECORDS SUMMARY | 2023-01-25 20:40 | External Medical Summary | Summary of Care ---
Author Name Unknown Organization [facility] Address [address] [facility] [place] [address] Phone [phone] Care Team Providers Care Processing Technologist Name Role Phone Bella Power MD Primary Care Prov ider Encounter Details Date Type Department Care Team Description 08/14/2022 Orders Only [facility] [place] [address] [place] [address] Angela Jeronimo, RN [address] [place] [address] Diaper rash* Allergies No known active allergiesdocumented as of [...] 1 Each 1 11/27/2018 Active DIURETIC TITRATION PLANIndications:Sand Blaster sandro heart failure with preserved ejection fraction [...] B, by GOLD 2017 classification ([facility]) Inhale by mouth 1 Puff in the [...] BEDTIME 60 Capsule 5 08/06/2022 4 Active documented as of this encounter [...] as of this encounter Progress Notes * Angela Jeronimo RN - 08/14/2022 1:24 PM EDT ny documented in this encounter Plan of Treatment Upcoming Encounters Date Type Specialty Care Team Description 11/20/2022 Home Visit [facility] Sallie Lynne RN [address] [facility] [place] [address] 01/17/2023 Office Visit Gastroenterology Ai Hunt CRNP [address] [facility] [place] [address] Scheduled Procedures Name Priority Associated Diagnoses Date/Ti [...] as of this encounter Visit Diagnoses Diagnosis Diaper rash- Primary Diaper or napkin rash documented in this encounter Advance Directives Documents on File Type Date Recorded Patient Offshore Wind Operations Manager Expl anation Power of Chief Of Staff 12/16/2018 10:33 AM Nate r of Chief Of Staff Latest Code Status on File Code Status [...] the patient have Health Care Power of Chief Of Staff? No Healthcare Agents on File Name Relationship Healthcare Agent Relationshi p Communication Wesley Hassan Spouse Health Care Agent Care Teams Processing Technologist Relationship Specialty Start Date End Date Bella Power MD [address] [place] [address] [place] [address] PCP - General Family Medicine 04/02/19 documented as of this encounter
--- OUTSIDE RECORDS SUMMARY | 2023-01-25 20:40 | External Medical Summary | Summary of Care ---
Author Name Unknown Organization [facility] Address [address] [address] [address] Phone [phone] Care Team Providers Care Computer Architect Name Role Phone Bella Power MD Primary Care Prov ider Reason for Visit * Reason Comments Medication Refill Encounter Details Date Type Department Care Team Description 11/26/2022 Refill Gastroenterology, [facility] [address] [place] [address] Stephanie Greenberg CRNP [address] [place] [address] Allergies No known active allergiesdocumented as of [...] Strip 11 02/03/2018 Active Nebulizers (NEBULIZER COMPRESSOR) MISCIndications:OPHTHALMOLOGIST RETINA SPECIALIST D, group B, by GOLD 2017 classification [...] WRAP) 30 g 11 11/09/2022 Active Nystatin 595513 UNIT/GM External Powder (Nystop) Apply topically to [...] after dialysis. 90 Capsule 1 11/26/2022 Active Pantoprazole Sodium 20 MG Oral Tablet Delayed Release (Protonix) Take 1 Tablet by mouth in the morning and 1 Tablet in the evening. 180 Tablet 1 04/15/2022 3 Discontinu ed(Refill) documented as of this [...] mRNA, LNP-s, No Pre serve, 2-Dose Series ([employer]) 01/02/2021,06/21/2020,05/24/2020 COVID-19, mRNA, LNP-s, PF, B ooster, [...] encounter Miscellaneous Notes * Telephone Encounter - TRINITY Gonzalez - 11/27/2022 11:41 AM EDTSigned Prescriptions: Disp Refills Pantoprazole Sodium 20 MG Oral Tablet Lissett*180 Ta*1 Sig: Take 1 Tablet by mouth in the morning and 1 Tablet in the evening.Authorizing Provider: STEPHANIE GREENBERG documented in this encounter Plan of Treatment Upcoming Encounters Date Type Specialty Care Team Description 12/25/2022 [facility] Visit [facility] Sallie [place], RN [address] [place] [address] 01/17/2023 Office Visit Gastroenterology Ai Hunt CRNP [address] [place] [address] Scheduled Procedures Name Priority Associated Diagnoses Date/Ti [...] Documents on File Type Date Recorded Patient Gis Manager Expl anation Power of Electric Motor Control Assembler 12/16/2018 10:33 AM Nate r of Electric Motor Control Assembler Latest Code Status on File Code Status [...] the patient have Health Care Power of Electric Motor Control Assembler? No Healthcare Agents on File Name Relationship Healthcare Agent Relationshi p Communication Wesley Hassan Spouse Health Care Agent Care Teams Computer Architect Relationship Specialty Start Date End Date Bella Power MD [address] [place] [address] [place] [address] PCP - General Family Medicine 04/02/19 documented as of this encounter
--- OUTSIDE RECORDS SUMMARY | 2023-01-25 20:40 | External Medical Summary | Summary of Care ---
Author Name Unknown Organization [facility] Address [address] [place] [address] Phone [phone] Care Team Providers Care Straight Line Press Setter Name Role Phone Bella Power MD Primary Care Prov ider Reason for Visit * Reason Onset Date Comments Appointment 11/04/2022 Encounter Details Date Type Department Care Team Description 11/04/2022 Telephone [facility] [place] [address] [place] [address] Services, Scheduling [address] [place] [address] Appointment (/) Allergies No known active allergiesdocumented as of this encounter (statuses as of 11/04/2022) Medications Medication Sig Dispensed Refills Start Date [...] group B, by GOLD 2017 classification ([facility]) Inhale via nebulizer. Use as directed. 1 Each 1 11/27/2018 Active DIURETIC TITRATION PLANIndications:Briquette Maker sandro heart failure with preserved ejection fraction [...] group B, by GOLD 2017 classification ([facility]) Inhale by mouth 1 Puff [...] daily 22 g 0 09/09/2022 Active Nystatin 246358 UNIT/GM External Powder (Nystop) apply one application externally twice daily 30 g 0 09/09/2022 Active Carbidopa-Levodopa 25-100 MG Oral Tablet (Sinemet) TAKE ONE TABLET BY MOUTH THREE TIMES A DAY WITH MEALS 90 Tablet 5 09/14/2022 4 Active documented as of this encounter (statuses as of 11/04/2022) Active Problems Problem Noted Date Serrated polyp [...] as of this encounter (statuses as of 11/04/2022) Resolved Problems Problem Noted Date Resolved Date [...] as of this encounter (statuses as of 11/04/2022) Immunizations Name Administration Dates Next Due COVID-19 [...] Miscellaneous Notes * Telephone Encounter - RENÉ Hutson - 11/04/2022 11:14 AM EDT Call to spouse and confirmed rescheduled AP home visit for 11/08 at 330pm, no connectivity and rncm ret hv for 11/20 at 10am, spouse agreeable to both appts Of Note: There was a prior note in pt's chart that she needs a pelvic exam, but [facility] doesn't perform these inthe home and would need to see PCP or IMMUNOCHEMIST. documented in this encounter Plan of Treatment Upcoming Encounters Date Type Specialty Care Team Description 11/08/2022 Home Visit [facility] Caleb Real PA-C [address] [place] [address] 11/11/2022 Office Visit Hematology Oncology Nita Pino CRNP [address] [place] [address] 11/20/2022 Home Visit [facility] [place] [address] [place] [address] [place] [address] 01/17/2023 Office Visit Gastroenterology Ai Hunt CRNP [address] [place] [address] Scheduled Procedures Name Priority Associated Diagnoses Date/Ti [...] Documents on File Type Date Recorded Patient Balloon Design Printer Expl anation Power of Senior Project Engineer 12/16/2018 10:33 AM Nate r of Senior Project Engineer Latest Code Status on File Code Status [...] patient have Health Care Power of Senior Project Engineer? No Healthcare Agents on File Name Relationship Healthcare Agent Relationshi p Communication Wesley Hassan Spouse Health Care Agent Care Teams Straight Line Press Setter Relationship Specialty Start Date End Date Bella Power MD [address] [place] [address] [place] [address] PCP - General Family Medicine 04/02/19 documented as of this encounter
--- OUTSIDE RECORDS SUMMARY | 2023-01-25 20:40 | External Medical Summary | Summary of Care ---
Author Name Unknown Organization [facility] Address [address] [place] [address] Phone [phone] Care Team Providers Care Communications And Signals Supervisor Name Role Phone Bella Power MD Primary Care Prov ider Reason for Visit * Reason Onset Date Comments Appointment 11/04/2022 Encounter Details Date Type Department Care Team Description 11/04/2022 [facility]phone [facility] [place] [facility] [address] [place] [address] Services, Scheduling [address] [place] [address] Appointment (/) Allergies No known active allergiesdocumented [...] , group B, by GOLD 2017 classification ([facility]) Inhale via nebulizer. Use as directed. 1 Each 1 11/27/2018 Active DIURETIC TITRATION PLANIndications:Structural Architect sandro heart failure with preserved ejection fraction [...] ndications:COPD, group B, by GOLD 2017 classification ([facility]) Inhale by mouth 1 Puff in the [...] daily 22 g 0 09/09/2022 Active Nystatin 013247 UNIT/GM External Powder (Nystop) apply one application [...] and would need to see PCP or SLICE CUTTING MACHINE OPERATOR. documented in this encounter Plan of Treatment Upcoming Encounters Date Type Specialty Care Team Description 11/08/2022 Home Visit [facility] Caleb Real PA-C [address] [place] [address] 11/11/2022 Office Visit Hematology Oncology Nita Pino CRNP [address] [place] [address] 11/20/2022 Home Visit [facility] [place] [address] [place] [address] [place] [address] 01/17/2023 Office Visit Gastroenterology Ai Hunt CRNP [address] [place] [address] Scheduled Procedures Name Priority Associated Diagnoses Date/Ti [...] Documents on File Type Date Recorded Patient Auto Accessories Installer Expl anation Power of Cmm Technician 12/16/2018 10:33 AM Nate r of Cmm Technician Latest Code Status on File Code Status [...] the patient have Health Care Power of Cmm Technician? No Healthcare Agents on File Name Relationship Healthcare Agent Relationshi p Communication Wesley Hassan Spouse Health Care Agent Care Teams Communications And Signals Supervisor Relationship Specialty Start Date End Date Bella Power MD [address] [place] [address] [place] [address] PCP - General Family Medicine 04/02/19 documented as of this encounter
--- OUTSIDE RECORDS SUMMARY | 2023-01-25 20:40 | External Medical Summary | Summary of Care ---
Author Name Unknown Organization [facility] Address [address] [facility] [place] [address] Phone [phone] Care Team Providers Care Rn Perioperative Name Role Phone Bella Power MD Primary Care Prov ider Reason for Visit * Reason Comments [facility]: Maintenance Encounter Details Date Type Department Care Team Description 11/20/2022 [facility] Visit [facility], [facility] [address] [place] [address] Sallie Lynne, RN [address] [facility] [place] [address] Allergies No known active allergiesdocumented as of this encounter (statuses as of 11/21/2022) Medications Medication Sig Dispensed Refills Start Date [...] 1 Each 1 11/27/2018 Active DIURETIC TITRATION PLANIndications:Social Worker sandro heart failure with preserved ejection [...] WRAP) 30 g 11 11/09/2022 Active Nystatin 108712 UNIT/GM External Powder (Nystop) Apply topically to affected area 2 times a day. 60 g 5 11/09/2022 Active documented as of this encounter (statuses as of 11/21/2022) Active Problems Problem Noted Date Serrated polyp [...] as of this encounter (statuses as of 11/21/2022) Resolved Problems Problem Noted Date Resolved Date [...] as of this encounter (statuses as of 11/21/2022) Immunizations Name Administration Dates Next Due COVID-19 mRNA, LNP-s, No Pre serve, 2-Dose Series ([employer]) 01/02/2021,06/21/2020,05/24/2020 COVID-19, mRNA, LNP-s, PF, B ooster, [...] Sign Reading Time Taken Comments Blood Pressure 104/60 11/20/2022 10:33 AM EDT Pulse 60 11/20/2022 10:33 AM EDT Temperature 36.8 C (98.3 F) 11/20/2022 10:33 AM E DT Respiratory Rate 18 11/20/2022 10:33 AM EDT Oxygen Saturation 90% 11/20/2022 10:33 AM EDT Inhaled Oxygen Concentration - - Weight [...] Progress Notes * Sallie Lynne RN - 11/20/2022 10:23 AM EDT [facility] Commercial Lending Assistant Visit Date: 11/20/2022 Time: 10:23 AM Name: Kami Hassan : 1945 Current Concerns: Patient seen for follow up- ESRD on HD, PD, HTN, CHF, RENÉ Reports doing well No issues at dialysis VS wnl Lungs clear but diminished Sob with exertion No LE edema noted Voids very little- denies burning Bowels wnl Appetite good Taking fluids well Calmoseptine continues to coccyx/buttocks- patient encouraged to lay in bed a couple times a day tooffload pressure. Problems/Symptoms: Review of Systems Constitutional: Negative. HENT: Negative. Respiratory: Positive for shortness of breath. Cardiovascular: Negative. Gastrointestinal: Negative. Endocrine: Negative. Genitourinary: Negative. Musculoskeletal: Negative. Skin: Negative. Allergic/Immunologic: Negative. Neurological: Negative. Hematological: Negative. Psychiatric/Behavioral: Negative. Physical Exam: BP 104/60 (BP Site: Left Arm, BP Position: Sitting, BP Cuff Size: Regular) | Pulse 60 | Temp 36.8 C (98.3 F) (Tympanic) | Resp 18 | SpO2 90% Pain 0 Physical Exam Cardiovascular: Rate and Rhythm: Normal rate. Pulses: Normal pulses. Pulmonary: Effort: Pulmonary effort is normal. Breath sounds: Normal breath sounds. Abdominal: General: Bowel sounds are normal. Palpations: Abdomen is soft. Musculoskeletal: General: Normal range of motion. Skin: General: Skin is warm and dry. Capillary Refill: Capillary refill takes 2 to 3 seconds. Neurological: General: No focal deficit present. Mental Status: She is alert and oriented to person, place, and time. Psychiatric: Mood and Affect: Mood normal. Behavior: Behavior normal. [facility] Completed this Visit: No. Routine visit Treatment/Plan: Continue medications as prescribed Keep all upcoming MD appointments Fall precautions- jj lift Dialysis /tue/thur/sat Fluid restriction Calmoseptine to coccyx/buttocks RN CM follow up in 5 weeks- [facility] graduation Home Interventions Provided: Reinforced current Plan of Care, including self-management and medication regimen Patient's Goals of Care: Stay out of the hospital Not to get sick Patient's 'Red Flags': Weakness Falls Mental status change Patient Needs to Remember: Call [facility] with any medical concerns/ red flags Referrals Needed: N/a Follow Up: Is there cellular connectivity/connectivity in the home? Yes Does the patient have internet in the home? No Patient encouraged to call the intake phone number for all urgent but not emergent issues. Scheduled to follow up with patient in 5 weeks. Sallie Dubon RN 11/20/2022 10:23 AM documented in this encounter Plan of Treatment Upcoming Encounters Date Type Specialty Care Team Description 12/25/2022 Home Visit [facility] Sallie Lynne RN [address] [place] [address] [place] [address] 01/17/2023 Office Visit Gastroenterology Ai Hunt CRNP [address] [facility] [place] [address] Scheduled Procedures Name Priority Associated Diagnoses Date/Ti [...] Documents on File Type Date Recorded Patient Sole Filler Expl anation Power of Monogram Machine Operator 12/16/2018 10:33 AM Nate r of Monogram Machine Operator Latest Code Status on File Code Status [...] the patient have Health Care Power of Monogram Machine Operator? No Healthcare Agents on File Name Relationship Healthcare Agent Relationsca p Communication Wesley Hassan Spouse Health Care Agent Care Teams Rn Perioperative Relationship Specialty Start Date End Date Bella Power MD [address] [place] [address] [place] [address] PCP - General Family Medicine 04/02/19 documented as of this encounter
--- OUTSIDE RECORDS SUMMARY | 2023-01-25 20:40 | External Medical Summary | Summary of Care ---
Author Name Unknown Organization [facility] Address [address] [facility] [place] [address] Phone [phone] Care Team Providers Care Rehab Aide Name Role Phone Bella Power MD Primary Care Prov ider Reason for Visit * Reason Comments Consultation Anemia * Evaluate & Treat - Unlimited Visits (Within 30 days (routine)) - Authorized Specialty Diagnoses / Procedures Referred By Gray santiago Referred To Contact Hematology/Oncology / Hematology Oncology Diagnoses Anemia, unspecified type Ai Hunt CRNP [address] [place] [address] Referral ID Status Reason Start Date Expiration Date Visits Requested Visits Authorized [id number] Authorized Specialty Services Required 10/04/[phone] Encounter Details Date Type Department Care Team Description 11/11/2022 Office Visit Hematology/Oncology Pako Haines Spicer [address] [facility] [place] [address] Nita Pino CRNP [address] [facility] [place] [address] Macrocytic anemia*; ESRD on dialysis (HCC); Rectal [...] Strip 11 02/03/2018 Active Nebulizers (NEBULIZER COMPRESSOR) MISCIndications:TRANSITIONAL STUDIES INSTRUCTOR D, 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 Use as directed. [...] B, by GOLD 2017 classification ([facility]) Inhale by mouth 1 Puff in [...] WRAP) 30 g 11 11/09/2022 Active Nystatin 609140 UNIT/GM External Powder (Nystop) Apply topically to [...] 3:00 PM EDT Hematology/Oncology Outpatient Clinic note [facility] [address] [place] [address] Name: Kami Hassan Date: 11/11/2022 REFERRED BY: TRINITY Taylor CHIEF COMPLAINT: Kami Hassan is a 77 year old female here today for new consultation for anemia of ESRD. HISTORY OF PRESENT ILLNESS: Patient with history of ESRD on HD, PD, HTN, COPD, dyslipidemia, AYSHA, T2DM, RENÉ, RA, dementia, hypothyroidism and CHF. Currently receiving HD Friday, and Friday at [facility] in [place]. Receives Venofer 100 mg IV with each [...] history obtained from chart review. Admitted at [facility] in September for colonoscopy and hysteroscopy [...] supplement as needed. Was also admitted to [facility] in August d/t infected decubitus ulcerations [...] Acute on chronic diastolic (congestive) heart failure ([facility]) 03/04/2020 [facility] Allergic rhinitis 02/15/2000 acute BMI 38.0-38.9,adult 08/28/2009 Chronic Sinusitis Unspecified Controlled substance agreement signed 11/25/2016 COVID-19 10/23/2021 Cystitis 05/23/2022 admitted [facility] home on cefuroxime Dyslipidemia, goal LDL below 100 Esophagitis determined by biopsy 04/19/2022 LA grade B esophagitis, inflammation gastric antrum, body and duodenum AYSHA (generalized anxiety disorder) Hearing loss, sensorineural 01/2005 History of non-ST elevation myocardial infarction (NSTEMI) 08/24/2018 HTN (hypertension) Meniere's disease Multiple falls 04/20/2019 History of falls on the pl NSTEMI (non-ST elevated myocardial infarction) ([facility]) 09/03/2018 Parkinson disease ([facility]) Restless leg syndrome 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 factor ([facility]) 07/18/2016 SDH (subdural hematoma) ([facility]) 04/20/2019 acute Serrated polyp of colon 09/20/2022 7 mm descending colon Sleep apnea Tinnitus 01/2005 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 ([facility]) Family History Problem Relation Age of [...] Social History Narrative Merged History 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 Social Determinants of Health Financial Resource Strain: [...] DRESSING (SARAN WRAP) 30 g 11 Nystatin 478514 UNIT/GM External Powder (Nystop) Apply topically to [...] warm and dry LABS: Component Latest Ref [facility] 10/04/2022 WBC 4.00 - 10.80 K/uL 6.18 [...] <=0 /100 WBCs 0 Component Latest Ref [facility] 10/04/2022 Iron 33 - 151 ug/dL 44 Iron Binding Capacity 250 - 425 ug/dL 268 Transferrin Saturation Percent 15 - 55 % 16 Component Latest Ref Rn 10/04/2022 Ferritin 13 - 150 ng/mL 419 (H) Component Latest Ref Rn 10/04/2022 Vitamin B12 232 - 1,245 pg/mL 1,196 Component Latest Ref [facility] 10/04/2022 Folic Acid >4.5 ng/mL >20.0 IMPRESSION: Anemia of ESRD, macrocytosis: 77 y/o female with history of ESRD on HD, PD, HTN, COPD, dyslipidemia, AYSHA, T2DM, RENÉ, RA, dementia, hypothyroidism and CHF. Currently receiving HD Friday, and Friday at [facility]. Receives Venofer 100 mg IV with each HD treatment. Receiving max dose of Mircera every two weeks at HD. Previously had a baseline Hgb of 10. Since approximately July Hgb has been running in the 7-8 range with macrocytic indices. No abnormalities in other cell lines. Admitted at [facility] in September for colonoscopy and hysteroscopy [...] Sallie Lynne RN [address] [place] [address] 01/17/2023 Office Visit Gastroenterology Ai Hunt CRNP [address] [place] [address] Scheduled Orders Name Type Priority Associated Diagnoses [...] Documents on File Type Date Recorded Patient Entry Level Software Engineer Expl anation Power of Transfer Engineer 12/16/2018 10:33 AM Nate r of Transfer Engineer Latest Code Status on File Code [...] the patient have Health Care Power of Transfer Engineer? No Healthcare Agents on File Name Relationship Healthcare Agent Relationshi p Communication Wesley Hassan Spouse Health Care Agent Care Teams Rehab Aide Relationship Specialty Start Date End Date Bella Power MD [address] [place] [address] [place] [address] PCP - General Family Medicine 04/02/19 documented as of this encounter
--- OUTSIDE RECORDS SUMMARY | 2023-01-25 20:41 | External Medical Summary | Summary of Care ---
Author Name Unknown Organization [facility] Address [address] [facility] [place] [address] Phone [phone] Care Team Providers Care Gold Buyer Name Role Phone Bella Power MD Primary Care Prov ider Reason for Visit * Reason Onset Date Comments Pre Cert/Prior Auth 10/04/2022 Encounter Details Date Type Department Care Team Description 10/04/2022 Telephone Gastroenterology, [facility] [address] [place] [address] Ai Hunt CRNP [address] [place] [address] Pre Cert/Prior Auth Allergies No known active allergiesdocumented as of this encounter (statuses as of 10/04/2022) Medications Medication Sig Dispensed Refills Start Date [...] 1 Each 1 11/27/2018 Active DIURETIC TITRATION PLANIndications:Electrical Project Manager sandro heart failure with preserved ejection [...] ndications:COPD, group B, by GOLD 2017 classification ([facility]) Inhale by mouth 1 Puff in the [...] daily 22 g 0 09/09/2022 Active Nystatin 859837 UNIT/GM External Powder (Nystop) apply one application externally twice daily 30 g 0 09/09/2022 Active Carbidopa-Levodopa 25-100 MG Oral Tablet (Sinemet) TAKE ONE TABLET BY MOUTH THREE TIMES A DAY WITH MEALS 90 Tablet 5 09/14/2022 4 Active documented as of this encounter (statuses as of 10/04/2022) Active Problems Problem Noted Date Serrated polyp [...] as of this encounter (statuses as of 10/04/2022) Resolved Problems Problem Noted Date Resolved Date [...] as of this encounter (statuses as of 10/04/2022) Immunizations Name Administration Dates Next Due COVID-19 [...] encounter Miscellaneous Notes * Telephone Encounter - Carlos Choe RN - 10/04/2022 12:22 PM EDT VCE order placed with RACHEL 2nd to blood loss per TRINITY Galvan. Will await auth and schedule patient accordingly. We will need to obtain phone consent. * Telephone Encounter - TRINITY Taylor - 10/04/2022 11:07 AM EDT Pls obtain prior auth for VCE. I had discussed this test w pt and in GI clinic today but need to obtain consent (ok via phone call with a provider), once prior auth for VCE approved and scheduled TRINITY Ventura' documented in this encounter Plan of Treatment Upcoming Encounters Date Type Specialty Care Team Description 10/16/2022 [facility] [address] [facility] [address] 11/08/2022 [facility] Caleb Real PA-C [address] [place] [address] 01/17/2023 Office Visit Gastroenterology Ai Hunt CRNP [address] [place] [address] Scheduled Procedures Name Priority Associated Diagnoses Date/Ti [...] COMPLETED IN P AST YEAR FOR COPD 10/04/2023 10/04/2022 COVID-19 Vaccine Completed 01/17/2022, 11/2021, 01/02/2021, Additional history exists Colonoscopy Discontinued 09/20/2022, 11/15, 11/27/2015, Additional history exists Colorectal Cancer Screening Discontinued Cologuard Discontinued Fecal Occult Blood Test Discontinued Sigmoidoscopy Discontinued documented as of this encounter Medical Devices Not on filedocumented as of this encounter Advance Directives Documents on File Type Date Recorded Patient Universal Banker Expl anation Power of Field Marketing Director 12/16/2018 10:33 AM Nate r of Field Marketing Director Latest Code Status on File Code [...] the patient have Health Care Power of Field Marketing Director? No Healthcare Agents on File Name Relationship Healthcare Agent Relationshi p Communication Wesley Hassan Spouse Health Care Agent Care Teams Gold Buyer Relationship Specialty Start Date End Date Bella Power MD [address] [place] [address] [place] [id number] PCP - General Family Medicine 04/02/19 documented as of this encounter
--- OUTSIDE RECORDS SUMMARY | 2023-01-25 20:41 | External Medical Summary | Summary of Care ---
Author Name Unknown Organization [facility] Address [address] [place] [address] Phone [phone] Care Team Providers Care Solar Sales Ambassador Name Role Phone Bella Power MD Primary Care Prov ider Reason for Referral * Precert (Within 10 days (routine)) - Pending Review Specialty Diagnoses / Procedures Referred By Gray santiago Referred To Contact Radiology Diagnoses Iron deficiency anemia secondary to blood loss (chronic) Procedures VIDEO CAPSULE ENDOSCOPY VIDEO CAPSULE ENDOSCOPY Ai Hunt CRNP [address] [place] [address] Referral ID Status Reason Start Date Expiration Date V isits Requested Visits Authorized [id number] Pending Review 10/04/2022 999 999 * Evaluate & Treat - Unlimited Visits (Within 30 days (routine)) - Authorized Specialty Diagnoses / Procedures Referred By Gray santiago Referred To Contact Hematology/Oncology / Hematology Oncology Diagnoses Anemia, unspecified type Ai Hunt CRNP [address] [place] [address] Referral ID Status Reason Start Date Expiration Date Visits Requested Visits Authorized [id number] Authorized Specialty Services Required 10/04/2022 999 999 Question Answer Referral Priority Within 30 days (routine) Reason for Referral Anemia Reason for Visit * Reason Comments Follow Up Anemia, still bleedi ng after D and C and colonoscopy. Recent hospital visit. * Evaluate & Treat - Unlimited Visits (Within 10 days (routine)) - Authorized Specialty Diagnoses / Procedures Referred By Gray santiago Referred To Contact Gastroenterology Diagnoses Anemia due to GI blood loss Rectal bleeding Kurtis Chirinos MD [address] [place] [address] [place] [address] Referral ID Status Reason Start Date Expiration Date Visits Requested Visits Authorized [id number] Authorized Specialty Services Required 10/03/2022 999 999 Encounter Details Date Type Department Care Team Description 10/04/2022 Office Visit Gastroenterology [address] [place] [address] Ai Hunt CRNP [address] [place] [address] Iron deficiency anemia secondary to blood loss (chronic)*; Anemia, unspecified type; Rectal bleeding Allergies No known active allergiesdocumented [...] 1 Each 1 11/27/2018 Active DIURETIC TITRATION PLANIndications: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 heart failure with preserved ejection [...] daily 22 g 0 09/09/2022 Active Nystatin 832686 UNIT/GM External Powder (Nystop) apply one application [...] Sign Reading Time Taken Comments Blood Pressure 102/58 10/04/2022 10:02 AM EDT Pulse 89 10/04/2022 10:02 AM EDT Temperature 36.5 C (97.7 F) 10/04/2022 10:02 AM E DT Respiratory Rate - - Oxygen Saturation 90% 10/04/2022 10:02 AM EDT Inhaled Oxygen Concentration - - Weight 105.7 kg (233 lb) 10/04/2022 10:02 AM EDT per Height - - Body Mass Index 42.62 09/03/2022 2:55 PM EDT documented in this encounter Functional [...] of this encounter Progress Notes * TRINITY Taylor - 10/04/2022 10:14 AM EDT DATE OF SERVICE: 10/04/22 REFERRING PHYSICIAN: Dario Busby MD CC: F/U rectal bleeding 10/04/22: Admitted at [facility] earlier this month for colonoscopy and hysteroscopy for evaluation of rectal and vaginal bleeding. + int/ext hemorrhoids and diverticulosis found on colonoscopy. Thickened endometrium w benign path. providing history. Cannot tell where exactly she is bleeding from- notices that when pt uses toilet water may be red, and when she is getting changed, she may have dark to red stain. Pt denies chocking, coughing w food, n/v, abd pain. Bowels move usually once a week, only using stool softeners on prn basis. Office Visit 04/15/2022 (TRINITY Herrera): 76 year old female with history of ESRD on HD,PD, HTN, dyslipidemia, AYSHA, T2DM, RENÉ, RA, CHF others below referred for eval of rectal bleeding, request of Dr. Busby. Pt was seen and evaluated, chart reviewed. Pt was seen and evaluated, chart reviewed. Here with spouse who provides history. Notes that for at least a year she has had painlessrectal bleeding. notes a hemorrhoid that he occasionally will treat with OTC creams etc. suggests more recently her stools have become dark, tarry. This has been occurring for about 3days. Has had slightly increase in amount of BRB as well. Despite this, she feels well. Denies abd pain, nausea, vomiting. No GERD. No dysphagia. No fever, chills, CP, SOB. Latest Reference Range & Units 10/22/19 12:02 10/27/19 10:00 11/03/19 11:29 12/03/19 13:09 02/16/20 11:45 02/28/20 16:45 HGB 12.0 - 15.3 g/dL 9.6 (L) 8.7 (L) 10.6 (L) 8.5 (L) 8.9 (L) 7.9 (L) HCT 36.0 - 45.2 % 30.5 (L) 28.5 (L) 35.4 (L) 28.9 (L) 29.3 (L) 27.2 (L) (L): Data is abnormally low On ASA No NSAIDs Had a course of PO steroids Not on PPI Colon 2015: Diverticulosis in the sigmoid colon. - The examination was otherwise normal. - No specimens collected. Colonoscopy 09/20/2022: - Preparation of the colon was fair. - One 7 mm polyp in the descending colon, removed with a cold snare. Resected and retrieved. - Diverticulosis in the sigmoid colon. - External and internal hemorrhoids A. Colon, descending, polypectomy: - Serrated polyp, cannot exclude sessile serrated adenoma. B. Endometrium, sharp curettage: - Fragments of endometrial polyp and atrophic endometrium. C. Endometrium, polyp, curettage: - Atrophic endometrium with variable cystic change. EGD 2022: - Normal esophagus. - LA Grade B esophagitis with no bleeding. - Z-line variable. - Normal stomach. - Erythematous mucosa in the gastric body and antrum. Biopsied. - Erythematous duodenopathy. FINAL DIAGNOSIS Stomach, biopsy: - Mild chronic gastritis. Reactive cellular changes consistent with reactive gastropathy. - Helicobacter pylori immunohistochemistry stain: Negative. EGD 2022: - Normal esophagus. - Regular Z-line. - Food in the stomach. - Normal duodenal bulb and second portion of the Duodenum. CT chest/abd/pelvis wo contrast 05/23/2022: 1. There [...] pelvic ultrasound is recommended for further assessment. Family history of GI malignancy: none Past Medical History: Diagnosis Date (HFpEF) heart failure with preserved ejection fraction (HCC) Acute on chronic diastolic (congestive) heart failure (HCC) 03/04/2020 [facility] Allergic rhinitis 02/15/2000 acute BMI 38.0-38.9,adult 08/28/2009 Chronic Sinusitis Unspecified Controlled substance agreement signed 11/25/2016 COVID-19 10/23/2021 Cystitis 05/23/2022 admitted [facility] home on cefuroxime Dyslipidemia, goal LDL below 100 Esophagitis determined by biopsy 04/19/2022 LA grade B esophagitis, inflammation gastric antrum, body and duodenum AYSHA (generalized anxiety disorder) Hearing loss, sensorineural 01/2005 History of non-ST elevation myocardial infarction (NSTEMI) 08/24/2018 HTN (hypertension) Meniere's disease Multiple falls 04/20/2019 History of falls on the pl NSTEMI (non-ST elevated myocardial infarction) ([facility]) 09/03/2018 Parkinson disease ([facility]) Restless leg syndrome 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 factor ([facility]) 07/18/2016 SDH (subdural hematoma) ([facility]) 04/20/2019 acute Serrated polyp of colon 09/20/2022 7 mm descending colon Sleep apnea Tinnitus 01/2005 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 ([facility]) Family History Problem Relation Age of Onset Heart Disorder Father also had AAA, age 85 Diabetes Father Hypertension Father Musculo-skeletal Disorder Mother has myasthenia gravis, now age 75 Hypertension Mother Neurological Disorder Brother myotonic dystrophy Neurological Disorder Sister wheelchair bound, indwelling Kirby Neurological Disorder Sister myotonic dystrophy Diabetes Brother Diabetes Sister Diabetes Sister Heart Disorder Sister Past Surgical History: Procedure Laterality Date ARTHROPLASTY KNEE TOTAL Left Dr. Del Real CARPAL TUNNEL SURGERY Bilateral COLONOSCOPY, DIAGNOSTIC (RECTUM) 11/27/2015 normal, repeat 10 yrs/COLONOSCOPY FLEXIBLE PROXIMAL DIAGNOSTIC performed by Garrett Chang MD at ENDOSCOPY [facility] EGD, FLEXIBLE, DIAGNOSTIC 04/19/2022 esophagitis, repeat 8-12 wks / [facility] EGD, FLEXIBLE, DIAGNOSTIC 06/26/2022 normal, retained food / [facility] EXPLORATION OF MAXILLARY SINUS 03/17/1995 Sinus Surgery HYSTEROSCOPY,DIAGNOSTIC 2022 atrophic endometrium, endometrial polyp INJECTION LUMBAR/SACRAL 07/31/2015 INJECTION SPINE LUMBAR OR SACRAL performed by Quincy Prado DO at OR [facility] INJECTION LUMBAR/SACRAL 08/15/2015 INJECTION SPINE LUMBAR OR SACRAL performed by Quincy Prado DO at OR [facility] INSER MARLI CAT,W/O PUMP;5YR/OLD N/A 11/04/2019 INSERT TUNNELED CENTRAL VENOUS CATHETER AGE 5 OR OLDER performed by Ortega Montez DO at OR [facility] LIGATE/CUT OVIDUCT(S) MISCELLANEOUS ORDER ([facility] ONLY) Bilateral Heel surgery MISCELLANEOUS ORDER ([facility] ONLY) Right 3rd toe nerve decompression, Dr. Del Real MS COLSC FLX W/RMVL OF TUMOR POLYP LESION SNARE TQ 09/20/2022 7 mm serrated polyp descending colon Social History Tobacco Use Smoking status: Former Packs/day: 0.25 Years: 50.00 Pack years: 12.50 Types: Cigarettes Quit date: 04/20/1989 Years since quittin.4 Smokeless tobacco: Never Tobacco comments: smoked since 19 years of age. Smokes a pack every 3-4 days. Vaping Use Vaping Use: Never used Substance Use Topics Alcohol use: Never Drug use: Never Review of patient's allergies indicates: No Known [...] heart failure managing provider. 1 Each 0 Melatonin 10 MG Tablet Take 1 Tablet by mouth every night at bedtime. DIURETIC TITRATION PLAN If no improvement on day 3, contact heart failure managing provider. acetaminophen (TYLENOL) 325 MG Tablet Take 2 Tabs by mouth every 6 hours as needed for Pain. 30Tab 0 Cholecalciferol (VITAMIN D3) 125 MCG (5000 UT) [...] Release 24 Hour (Imdur) TAKE ONE TABLET BYMOUTH DAILY 90 Tablet 3 Hydrocortisone (Perianal) 2.5 [...] externally twice daily 22 g 0 Nystatin 476533 UNIT/GM External Powder (Nystop) apply one application externally twice daily 30 g 0 Carbidopa-Levodopa 25-100 MG Oral Tablet (Sinemet) TAKE ONE TABLET BY MOUTH THREE TIMES A DAY WITH MEALS 90 Tablet 5 No current facility-administered medications for this visit. REVIEW OF SYSTEMS: All other findings negative except as noted in HPI. EXAM: BP 102/58 | Pulse 89 | Temp 36.5 C (97.7 F) | Wt 105.7 kg (233 lb) Comment: per | SpO2 90% | BMI 42.62 kg/m | BSA 2.15 m GENERAL: Well developed and well nourished in no acute distress. SKIN: No rashes, ulcers, jaundice HEENT: Normocephalic, sclera clear, NECK: Supple,trachea midline, no JVD. LUNGS: Clear to auscultation bilaterally, no respiratory distress or accessory muscles used. HEART: Regular rate & rhythm, no murmurs and no gallops. ABDOMEN: Normal bowel sounds, soft and nontender EXTREMITIES: No palmar erythema, no ankle edema, NEURO: No lateralizing findings. Sensory/Motor grossly normal. ASSESSMENT AND PLAN: 77 year old female with history of ESRD on HD, PD, HTN, dyslipidemia, AYSHA, T2DM, RENÉ, RA, CHF, sacral ulcer with anemia and symptoms of dark to bright red blood from ? Rectum vs.Vaginal bleeding. Previous endoscopic workup showed esophagitis wo bleeding, and diverticulosis, int/ext hemorrhoids. Hysteroscopy w thickened endometrium w benign path. - Labs: Cbc with wbc differential Iron screen, including tibc Ferritin Vitamin b12 Folic acid - Hematology referral - Discussed video capsule endoscopy to r/o small bowel bleeding. Will obtain prior auth and schedule if approved. - Pantoprazole 20 mg twice daily - Hydrocortisone 2.5% MS prn hemorrhoids bleeding - Advised to use Stool softeners and fiber daily to prevent constipation or straining - No NSAIDs - ED for emergencies - Please call with any questions or concerns RETURN TO CLINIC: 3 months or sooner prn I spent a total of 30 minutes on the date of service in review of patient's record, and previously obtained information in person and appropriate medical visit, discussion and education of plan, withpatient and/or caregiver, placing orders for tests/referral/procedures as medically necessary and documentation of pertinent clinical information in patient's medical records for their visit today. TRINITY Ventura [facility] documented in this encounter Nursing Notes * Viki Rodríguez LPN - 10/04/2022 10:04 AM EDT Patient identified by name and date of . Chief Complaint Patient presents with Follow Up Anemia, still bleeding after D and C and colonoscopy. Recent hospital visit. Pt presents with , vanessa. Pt in wheelchair, stating that she is weak and unable to stand. Pt has been having issues with anemia for several months ( approx 6 per ) and pt stating that she had a EGD done in april and than again in June. Pt stating they can not find where sheis bleeding from. Pt stating that Dr chirinos told them about a video capsule. documented in this encounter Miscellaneous Notes * Addendum Note - Carlos Choe RN - 10/04/2022 12:22 PM EDTAddended by: CARLOS CHOE on: 10/04/2022 12:22 PM Modules accepted: Orders documented in this encounter Plan of Treatment Upcoming Encounters Date Type Specialty Care Team Description 10/16/2022 Home Visit [facility] Home Sallie Lynne RN [address] [facility] [place] [address] 11/08/2022 Home Visit [facility] Caleb Real PA-C [address] [place] [address] 01/17/2023 Office Visit Gastroenterology Ai Hunt CRNP [address] [place] [address] Pending Results Name Type Priority Associated Diagnoses Date /Time CBC WITH WBC DIFFERENTIAL Lab Routine Anemia, unspecified type 10/04/2022 10:43 AM EDT IRON SCREEN, INCLUDING TIBC Lab Routine Anemia, unspecified type 10/04/2022 10:43 AM EDT FERRITIN Lab Routine Anemia, unspecified type 10/04/2022 10:43 AM EDT VITAMIN B12 Lab Routine Anemia, unspecified type 10/04/2022 10:43 AM EDT FOLIC ACID Lab Routine Anemia, unspecified type 10/04/2022 10:43 AM EDT CBC Lab Routine Anemia, unspecified type 10/04/2022 10:43 AM EDT DIFFERENTIAL, AUTOMATED Lab Routine Anemia, unspecified type 10/04/2022 10:43 AM EDT Scheduled Orders Name Type Priority Associated Diagnoses Orde r Schedule VIDEO CAPSULE ENDOSCOPY Gastro Upper Routine Iron deficiency anemia secondary to blood loss (chronic) Ordered: 10/04/2022 Scheduled Procedures Name Priority Associated Diagnoses Date/Ti me COLONOSCOPY FLEXIBLE PROXIMA L DIAGNOSTIC Recall Encounter for screening colonoscopy Scheduled Referrals Name Type Priority Associated Diagnoses Orde r Schedule HEMATOLOGY/ONCOLOGY REFERRAL OP Referral Within 30 days (routine) Anemia, unspecified type Ordered: 10/04/2022 Health Maintenance Due Date Last Done Comments [...] as of this encounter Visit Diagnoses Diagnosis Iron deficiency anemia secondary to blood loss (chronic)- Primary Anemia, unspecified type Rectal bleeding Hemorrhage of rectum and anus documented in this encounter Advance Directives Documents on File Type Date Recorded 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 No Healthcare Agents on File Name Relationship Healthcare Agent Relationshi p Communication Wesley E Eggler Spouse Health Care Agent Care Teams Solar Sales Ambassador Relationship Specialty Start Date End Date Bella Power MD [address] [place] [address] [place] [address] PCP - General Family Medicine 04/02/19 documented as of this encounter
--- OUTSIDE RECORDS SUMMARY | 2023-01-25 20:41 | External Medical Summary | Summary of Care ---
Author Name Unknown Organization [facility] Address [address] [facility] [place] [address] Phone [phone] Care Team Providers Care Commercial Manager Name Role Phone Bella Power MD Primary Care Prov ider Reason for Visit * Reason Onset Date Comments Pre Cert/Prior Auth 10/04/2022 Encounter Details Date Type Department Care Team Description 10/04/2022 Telephone Gastroenterology, [facility] [address] [place] [address] Ai Hunt CRNP [address] [place] [address] Pre Cert/Prior Auth Allergies No known active [...] 1 Each 1 11/27/2018 Active DIURETIC TITRATION PLANIndications: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 heart failure with preserved ejection fraction [...] daily 22 g 0 09/09/2022 Active Nystatin 680221 UNIT/GM External Powder (Nystop) apply one application [...] Miscellaneous Notes * Telephone Encounter - TRINITY Taylor - [...] Visit [facility] Sallie Lynne RN [address] [facility] [place] [address] 11/08/2022 Home Visit [facility] Caleb Real PA-C [address] [place] [address] 01/17/2023 Office Visit Gastroenterology Ai Hunt CRNP [address] [place] [address] Scheduled Procedures Name Priority Associated Diagnoses Date/Ti [...] IN P AST YEAR FOR COPD 10/04/2023 10/03/2022 COVID-19 Vaccine Completed 01/17/2022, 11/2021, 01/02/2021, Additional history exists Colonoscopy Discontinued 09/20/2022, 11/15, 11/27/2015, Additional history exists Colorectal Cancer Screening Discontinued Cologuard Discontinued Fecal Occult Blood Test Discontinued Sigmoidoscopy Discontinued documented as of this encounter Medical Devices Not on filedocumented as of this encounter Advance Directives Documents on File Type Date Recorded 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 No Healthcare Agents on File Name Relationship Healthcare Agent Relationshi p Communication Wesley Hassan Spouse Health Care Agent Care Teams Commercial Manager Relationship Specialty Start Date End Date Bella Power MD [address] [place] [address] [place] [address] PCP - General Family Medicine 04/02/19 documented as of this encounter
--- OUTSIDE RECORDS SUMMARY | 2023-01-25 20:41 | External Medical Summary | Summary of Care ---
Author Name Unknown Organization [facility] Address [address] [facility] [place] [address] Phone [phone] Care Team Providers Care Pie Bottomer Name Role Phone Bella Power MD Primary Care Prov ider Reason for Visit * Reason Onset Date Comments Pre Cert/Prior Auth 10/04/2022 Encounter Details Date Type Department Care Team Description 10/04/2022 Telephone Gastroenterology, [facility] [address] [place] [address] Ai Hunt CRNP [address] [place] [address] Pre Cert/Prior Auth Allergies No known active [...] 1 Each 1 11/27/2018 Active DIURETIC TITRATION PLANIndications: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 heart failure with preserved ejection fraction [...] B, by GOLD 2017 classification ([facility]) Inhale by mouth 1 Puff in [...] daily 22 g 0 09/09/2022 Active Nystatin 625923 UNIT/GM External Powder (Nystop) apply one application [...] Visit [facility] Sallie Lynne RN [address] [facility] [place] [address] 11/08/2022 Home Visit [facility] Caleb Real PA-C [address] [place] [address] 01/17/2023 Office Visit Gastroenterology Ai Hunt CRNP [address] [place] [address] Scheduled Procedures Name Priority Associated Diagnoses Date/Ti [...] Documents on File Type Date Recorded 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 No Healthcare Agents on File Name Relationship Healthcare Agent Relationshi p Communication Wesley Hassan Spouse Health Care Agent Care Teams Pie Bottomer Relationship Specialty Start Date End Date Bella Power MD [address] [place] [address] [place] [address] PCP - General Family Medicine 04/02/19 documented as of this encounter
--- OUTSIDE RECORDS SUMMARY | 2023-01-25 20:41 | External Medical Summary | Summary of Care ---
Author Name Unknown Organization [facility] Address [address] [place] [address] Phone [phone] Care Team Providers Care Cargo Service Supervisor Name Role Phone Bella Power MD Primary Care Prov ider Reason for Visit * Reason Onset Date Comments Endoscopy (Op Note) 10/23/2022 Capsule Encounter Details Date Type Department Care Team Description 10/23/2022 Nurse Only Gastroenterology, [facility] [address] [facility] [place] [address] [facility], Nurse Gastro [facility] 132 [facility] [place] [address] Endoscopy (Op Note) (Capsule) Allergies No known active allergiesdocumented as of this encounter (statuses as of 10/28/2022) Medications Medication Sig Dispensed Refills Start Date [...] 1 Each 1 11/27/2018 Active DIURETIC TITRATION PLANIndications:Automotive Lot Attendant sandro heart failure with preserved ejection fraction [...] ndications:COPD, group B, by GOLD 2017 classification ([facility]) Inhale by mouth 1 Puff in the [...] daily 22 g 0 09/09/2022 Active Nystatin 744958 UNIT/GM External Powder (Nystop) apply one application externally twice daily 30 g 0 09/09/2022 Active Carbidopa-Levodopa 25-100 MG Oral Tablet (Sinemet) TAKE ONE TABLET BY MOUTH THREE TIMES A DAY WITH MEALS 90 Tablet 5 09/14/2022 4 Active documented as of this encounter (statuses as of 10/28/2022) Active Problems Problem Noted Date Serrated polyp [...] as of this encounter (statuses as of 10/28/2022) Resolved Problems Problem Noted Date Resolved Date [...] as of this encounter (statuses as of 10/28/2022) Immunizations Name Administration Dates Next Due COVID-19 [...] Sign Reading Time Taken Comments Blood Pressure 112/62 10/23/2022 7:37 AM EDT Pulse 62 10/23/2022 7:37 AM EDT Temperature - - Respiratory Rate 16 10/23/2022 7:37 AM EDT Oxygen Saturation - - Inhaled Oxygen Concentration [...] No 04/20/2019 documented as of this encounter Patient Instructions * Patient Instructions* Carlos Choe RN - 10/23/2022 7:54 AM EDT Video Capsule Endoscopy (VCE) Discharge Instructions Avoid activities that require frequent bending at the waist (laundry, aerobics, gardening etc) No lying flat (you may rest in recliner) Participate in movement/gentle activity for 5-10 min each hour Please keep belt intact around waist with sling/recorder near belt line at all times (may adjust when using restroom if warranted) You may resume a clear liquid diet 2 hours after swallowing video capsule Return to the office 8 hours after swallowing video capsule The green light on the right side of monitor is the Battery Life The blinking blue light on left side of the monitor is the capsule recording data (this will turn orange and eventually off once the recording is complete) Please call [phone], option #2 with questions. Video Capsule Endoscopy (VCE) Discharge Instructions Avoid activities that require frequent bending at the waist (laundry, aerobics, gardening etc) No lying flat (you may rest in recliner) Participate in movement/gentle activity for 5-10 min each hour Please keep belt intact around waist with sling/recorder near belt line at all times (may adjust when using restroom if warranted) You may resume a clear liquid diet 2 hours after swallowing video capsule Return to the office 8 hours after swallowing video capsule The green light on the right side of monitor is the Battery Life The blinking blue light on left side of the monitor is the capsule recording data (this will turn orange and eventually off once the recording is complete) Please call [phone], option #2 with questions. documented in this encounter Progress Notes * Viki Rodríguez LPN - 10/23/2022 3:58 PM EDT Pt returned to office at 3:50pm and had GIVEN unit disconnected. Pt reports no problems and denies nausea, vomiting, bloating, or pain. Pt tolerated procedure well. Database being downloaded for Dr gary to review. Report to follow. Pt notified to call us if she does not pass capsule in a few days or if she developes nausea, vomiting, bloating and/or abdominal pain. Pt verbalized understanding and agrees to plan of care. Will call patient tomorrow on 10/24/2022 after 230( pt has dialysis and is gone per from 8- 230pm) for clinical followup. Viki Rodríguez LPN * Carlos Choe RN - 10/23/2022 7:36 AM EDT Patient arrived at 0730 for capsule endoscopy. STEFFEN Gonzalez educated patient about this procedure, benefits, risks, and alternatives. Patient signed consent after verbalizing that Kami Hassan had no questions or reservations. The patient was given 1 chewable Simethicone tab as well as one capful of Miralax in eight ounces of water with lemonade Crystal Light. Patient connected to GIVEN imaging unit and swallowed capsule at 07:51am without difficulty. Date base battery light flashing green and "activity" light flashing blue. Patient given copy of instructions, as well as our office phone number to call as needed with any questions or problems. Patient instructed to return to office at 15:51 today to be disconnected. Patient verbalized understanding of all instructions and tolerated procedure well. [id number] pamphlet reviewed with patient and Wesley. Consent signed by patients DAPHNE Olson. Carlos Choe RN documented in this encounter Miscellaneous Notes * Addendum Note - Merly Sanon RN - 10/28/2022 10:09 AM EDTAddended by: MERLY SANON on: 10/28/2022 10:09 AM Modules accepted: SmartSet documented in this encounter Plan of Treatment Upcoming Encounters Date Type Specialty Care Team Description 11/08/2022 [facility] Visit [facility] Caleb Real PA-C [address] [place] [address] 11/11/2022 Office Visit Hematology Oncology Nita Pino CRNP [address] [facility] [place] [address] 11/20/2022 [facility] [facility] [address] 01/17/2023 Office Visit Gastroenterology Ai Hunt CRNP [address] [place] [address] Scheduled Procedures Name Priority Associated Diagnoses Date/Ti [...] 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 Given 10/23/2022 7:41 AM EDT 17 g Simethicone CHEW 125 mg 125 mg, Oral, ONCE, On Fri10/23/22 at 0730, For 1 dose Given 10/23/2022 7:41 AM EDT 125 mg documented in this encounter Advance Directives Documents on File Type Date Recorded Patient It Infrastructure Project Manager Expl anation Power of Bulker 12/16/2018 10:33 AM Nate r of Bulker Latest Code Status on File Code Status [...] the patient have Health Care Power of Bulker? No Healthcare Agents on File Name Relationship Healthcare Agent Relationshi p Communication Wesley Hassan Spouse Health Care Agent Care Teams Cargo Service Supervisor Relationship Specialty Start Date End Date Bella Power MD [address] [place] [address] [place] [phone] PCP - General Family Medicine 04/02/19 documented as of this encounter
--- OUTSIDE RECORDS SUMMARY | 2023-01-25 20:41 | External Medical Summary | Summary of Care ---
Author Name Unknown Organization [facility] Address [address] [facility] [facility] [place] [address] Phone [phone] Care Team Providers Care Customer Engineer Name Role Phone Bella Power MD Primary Care Prov ider Reason for Visit * Reason Onset Date Comments Pre Cert/Prior Auth 10/04/2022 Encounter Details Date Type Department Care Team Description 10/04/2022 Telephone Gastroenterology, [facility] [address] [place] [address] Ai Hunt CRNP [address] [place] [address] Pre Cert/Prior Auth Allergies No known active [...] 1 Each 1 11/27/2018 Active DIURETIC TITRATION PLANIndications: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 [place] [address] 11/08/2022 [facility] Visit [facility] Caleb Real PA-C [address] [place] [address] 01/17/2023 Office Visit Gastroenterology Ai Hunt CRNP [address] [place] [address] Scheduled Procedures Name Priority Associated Diagnoses Date/Ti [...] Documents on File Type Date Recorded Patient Language Path Expl anation Power of Ham Stringer 12/16/2018 10:33 AM Nate peralta of Ham Stringer Latest Code Status on File Code Status [...] the patient have Health Care Power of Ham Stringer? No Healthcare Agents on File Name Relationship Healthcare Agent Relationshi p Communication Wesley Hassan Spouse Health Care Agent Care Teams Customer Engineer Relationship Specialty Start Date End Date Bella Power MD [address] [place] [address] [place] [address] PCP - General Family Medicine 04/02/19 documented as of this encounter
--- OUTSIDE RECORDS SUMMARY | 2023-01-25 20:41 | External Medical Summary | Summary of Care ---
Author Name Unknown Organization [facility] Address [address] [facility] [place] [address] Phone [phone] Care Team Providers Care Mechanic Marine Engine Name Role Phone Bella Power MD Primary Care Prov ider Reason for Visit * Reason Onset Date Comments Follow Up 10/23/2022 VCE Encounter Details Date Type Department Care Team Description 10/23/2022 Telephone Gastroenterology, [facility] [address] [place] [address] Ai Hunt CRNP [address] [place] [address] Follow Up (VCE) Allergies No known active allergiesdocumented as of this encounter (statuses as of 10/23/2022) Medications Medication Sig Dispensed Refills Start Date [...] 1 Each 1 11/27/2018 Active DIURETIC TITRATION PLANIndications:Drier Operator Head sandro heart failure with preserved ejection fraction [...] B, by GOLD 2017 classification ([facility]) Inhale by mouth 1 Puff [...] daily 22 g 0 09/09/2022 Active Nystatin 247133 UNIT/GM External Powder (Nystop) apply one application externally twice daily 30 g 0 09/09/2022 Active Carbidopa-Levodopa 25-100 MG Oral Tablet (Sinemet) TAKE ONE TABLET BY MOUTH THREE TIMES A DAY WITH MEALS 90 Tablet 5 09/14/2022 4 Active documented as of this encounter (statuses as of 10/23/2022) Active Problems Problem Noted Date Serrated polyp [...] as of this encounter (statuses as of 10/23/2022) Resolved Problems Problem Noted Date Resolved Date [...] as of this encounter (statuses as of 10/23/2022) Immunizations Name Administration Dates Next Due COVID-19 [...] Telephone Encounter - Carlos Choe RN - 10/23/2022 3:41 PM EDT Nursing- please follow up with patient 10/24 s/p VCE swallow. documented in this encounter Plan of Treatment Upcoming Encounters Date Type Specialty Care Team Description 11/08/2022 Home Visit [facility] Caleb Real PA-C [address] [place] [address] 11/11/2022 Office Visit Hematology Oncology Nita Pino CRNP [address] [facility] [place] [address] 11/20/2022 Home Visit [facility] Sallie Lynne RN [address] [facility] [place] [address] 01/17/2023 Office Visit Gastroenterology Ai Hunt CRNP [address] [place] [address] Scheduled Procedures Name Priority Associated Diagnoses Date/Ti [...] COMPLETED IN P AST YEAR FOR COPD 10/05/2023 10/04/2022 COVID-19 Vaccine Completed 01/17/2022, 11/2021, 01/02/2021, Additional history exists Colonoscopy Discontinued 09/20/2022, 11/15, 11/27/2015, Additional history exists Colorectal Cancer Screening Discontinued Cologuard Discontinued Fecal Occult Blood Test Discontinued Sigmoidoscopy Discontinued documented as of this encounter Medical Devices Not on filedocumented as of this encounter Advance Directives Documents on File Type Date Recorded Patient Cadworx Piping Designer Expl anation Power of Registered Land Surveyor 12/16/2018 10:33 AM Nate r of Registered Land Surveyor Latest Code Status on File Code Status [...] the patient have Health Care Power of Registered Land Surveyor? No Healthcare Agents on File Name Relationship Healthcare Agent Relationshi p Communication Wesley Hassan Spouse Health Care Agent Care Teams Mechanic Marine Engine Relationship Specialty Start Date End Date Bella Power MD [address] [place] [address] [place] [address] PCP - General Family Medicine 04/02/19 documented as of this encounter
--- OUTSIDE RECORDS SUMMARY | 2023-01-25 20:41 | External Medical Summary | Summary of Care ---
Author Name Unknown Organization [facility] Address [address] [facility] [place] [address] Phone [phone] Care Team Providers Care Clamshell Engineer Name Role Phone Bella Power MD Primary Care Prov ider Reason for Visit * Reason Onset Date Comments Follow Up 10/23/2022 VCE Encounter Details Date Type Department Care Team Description 10/23/2022 Telephone Gastroenterology, [facility] [address] [place] [address] Ai Hunt CRNP [address] [place] [address] Follow Up (VCE) Allergies No known active allergiesdocumented as of this encounter (statuses as of 10/24/2022) Medications Medication Sig Dispensed Refills Start Date [...] Each 1 11/27/2018 Active DIURETIC TITRATION PLANIndications:Group Home Manager sandro heart failure with preserved ejection [...] B, by GOLD 2017 classification ([facility]) Inhale by mouth 1 Puff in [...] daily 22 g 0 09/09/2022 Active Nystatin 102956 UNIT/GM External Powder (Nystop) apply one application externally twice daily 30 g 0 09/09/2022 Active Carbidopa-Levodopa 25-100 MG Oral Tablet (Sinemet) TAKE ONE TABLET BY MOUTH THREE TIMES A DAY WITH MEALS 90 Tablet 5 09/14/2022 4 Active documented as of this encounter (statuses as of 10/24/2022) Active Problems Problem Noted Date Serrated polyp [...] as of this encounter (statuses as of 10/24/2022) Resolved Problems Problem Noted Date Resolved Date [...] as of this encounter (statuses as of 10/24/2022) Immunizations Name Administration Dates Next Due COVID-19 [...] Telephone Encounter - Carlos Choe RN - 10/24/2022 8:32 AM EDT Called patient and spoke to her , states patient is at dialysis, ate breakfast this morning,having no issues at this time. Unsure if she moved her bowels. Advised on emergent s/s of blockage to report to ER (nausea with vomiting, severe abdominal pain). * Telephone Encounter - Carlos Choe RN - 10/23/2022 3:41 PM EDT Nursing- please follow up with patient 10/24 s/p VCE swallow. documented in this encounter Plan of Treatment Upcoming Encounters Date Type Specialty Care Team Description 11/08/2022 [facility] [place] [address] 11/11/2022 Office Visit Hematology Oncology Nita Pino CRNP [address] [place] [address] 11/20/2022 Home Visit [facility] Sallie Lynne, RN [address] [facility] [place] [address] 01/17/2023 Office Visit Gastroenterology Ai Hunt CRNP [address] [place] [address] Scheduled Procedures Name Priority Associated Diagnoses Date/Ti [...] Documents on File Type Date Recorded Patient Harpoon Engagement Planning Operator Expl anation Power of Flight Tower Dispatcher 12/16/2018 10:33 AM Nate r of Flight Tower Dispatcher Latest Code Status on File Code Status [...] the patient have Health Care Power of Flight Tower Dispatcher? No Healthcare Agents on File Name Relationship Healthcare Agent Relationshi p Communication Wesley Hassan Spouse Health Care Agent Care Teams Clamshell Engineer Relationship Specialty Start Date End Date Bella Power MD [address] [place] [address] [place] [address] PCP - General Family Medicine 04/02/19 documented as of this encounter
--- OUTSIDE RECORDS SUMMARY | 2023-01-25 20:41 | External Medical Summary | Summary of Care ---
Author Name Unknown Organization [facility] Address [address] [facility] [place] [address] Phone [phone] Care Team Providers Care Direct Support Professional Name Role Phone Bella Power MD Primary Care Prov ider Reason for Visit * Reason Onset Date Comments Pre Cert/Prior Auth 10/04/2022 Encounter Details Date Type Department Care Team Description 10/04/2022 Telephone Gastroenterology, [facility] [address] [place] [address] Ai Hunt CRNP [address] [place] [address] Pre Cert/Prior Auth Allergies No known active allergiesdocumented as of this encounter (statuses as of 10/08/2022) Medications Medication Sig Dispensed Refills Start Date [...] 1 Each 1 11/27/2018 Active DIURETIC TITRATION PLANIndications:Primer Inspector sandro heart failure with preserved ejection fraction [...] B, by GOLD 2017 classification ([facility]) Inhale by mouth 1 Puff [...] daily 22 g 0 09/09/2022 Active Nystatin 809065 UNIT/GM External Powder (Nystop) apply one application externally twice daily 30 g 0 09/09/2022 Active Carbidopa-Levodopa 25-100 MG Oral Tablet (Sinemet) TAKE ONE TABLET BY MOUTH THREE TIMES A DAY WITH MEALS 90 Tablet 5 09/14/2022 4 Active documented as of this encounter (statuses as of 10/08/2022) Active Problems Problem Noted Date Serrated polyp [...] as of this encounter (statuses as of 10/08/2022) Resolved Problems Problem Noted Date Resolved Date [...] as of this encounter (statuses as of 10/08/2022) Immunizations Name Administration Dates Next Due COVID-19 [...] as of this encounter Miscellaneous Notes * Addendum Note - Carlos Mazariegos RN - 10/08/2022 8:50 AM EDTAddended by: CARLOS MAZARIEGOS on: 10/08/2022 08:50 AM Modules accepted: Orders * Telephone Encounter - Carlos Mazariegos RN - 10/08/2022 8:34 AM EDT Per auth, no precert needed (KATALINA Oconnor). Pt has a BMI of 42, will need two nurses to complete. Pt is currently taking oral iron, she will need to be off of this for 7 days. Called and spoke with the , is aware of clear liquids after lunch on 10/22, will need to hold oral iron starting 10/16. NPO after midnight the night before. Ai, pended CAM orders, we will also need to do phone consent upon your return. Thanks. * Telephone Encounter - Carlos Mazariegos RN - 10/04/2022 12:22 PM EDT VCE [...] [facility] Sallie Lynne RN [address] [place], [place] [address] [address] 11/08/2022 Home Visit [facility] Caleb Real PA-C [address] [place] [address] 11/11/2022 Office Visit Hematology Oncology Nita Pino CRNP [address] [place] [address] 01/17/2023 Office Visit Gastroenterology Ai Hunt CRNP [address] [place] [address] Scheduled Procedures Name Priority Associated Diagnoses Date/Ti [...] Documents on File Type Date Recorded Patient Rn Nicu Expl anation Power of Cement Railroad Car Loader 12/16/2018 10:33 AM Nate r of Cement Railroad Car Loader Latest Code Status on File Code Status [...] the patient have Health Care Power of Cement Railroad Car Loader? No Healthcare Agents on File Name Relationship Healthcare Agent Relationshi p Communication Wesley Hassan Spouse Health Care Agent Care Teams Direct Support Professional Relationship Specialty Start Date End Date Bella Power MD [address] [place] [place] [address] [place] [address] PCP - General Family Medicine 04/02/19 documented as of this encounter
--- OUTSIDE RECORDS SUMMARY | 2023-01-25 20:41 | External Medical Summary | Summary of Care ---
Author Name Unknown Organization [facility] Address [address] [facility] [place] [address] Phone [phone] Care Team Providers Care Pr Specialist Name Role Phone Bella Power MD Primary Care Prov ider Reason for Visit * Reason Onset Date Comments Pre Cert/Prior Auth 10/04/2022 Encounter Details Date Type Department Care Team Description 10/04/2022 Telephone Gastroenterology, [facility] [address] [place] [address] Ai Hunt CRNP [address] [place] [address] Pre Cert/Prior Auth Allergies No known active [...] 1 Each 1 11/27/2018 Active DIURETIC TITRATION PLANIndications:Dinkey Operator Slag sandro heart failure with preserved ejection fraction [...] daily 22 g 0 09/09/2022 Active Nystatin 450312 UNIT/GM External Powder (Nystop) apply one application externally twice daily 30 g 0 09/09/2022 Active Carbidopa-Levodopa 25-100 MG Oral Tablet (Sinemet) TAKE ONE TABLET BY MOUTH THREE TIMES A DAY WITH MEALS 90 Tablet 5 09/14/2022 4 Active Hospital, Clinic, or Other Facility Administered Medication Ordered Dose Route Frequency Start Date End Date Status Polyethylene Glycol 3350 (Miralax) oral powder 17 gIndications:Iron deficiency anemia, unspecified iron deficiency anemia type 17 g OR ONCE 10/23/2022 10/23/2022 Active Simethicone CHEW 125 mgIndications:Iron deficiency anemia, unspecified iron deficiency anemia type 125 mg OR ONCE 10/23/2022 10/23/2022 Active documented as of this encounter (statuses [...] encounter Miscellaneous Notes * Addendum Note - TRINITY Ruiz - 10/08/2022 4:36 PM EDTAddended by: JM CANTRELL on: 10/08/2022 04:36 PM Modules accepted: Orders * Telephone Encounter - TRINITY Ruiz - 10/08/2022 4:36 PM EDT signed * Addendum Note - Carlos Choe RN - 10/08/2022 8:50 AM EDTAddended by: CARLOS CHOE on: 10/08/2022 08:50 AM Modules accepted: Orders * Telephone Encounter - Carlos Choe RN - 10/08/2022 8:34 AM EDT Per auth, no precert needed (GHBrian Oconnor). Pt has a BMI of 42, [...] return. Thanks. * Telephone Encounter - Carlos Choe RN [...] Specialty Care Team Description 10/16/2022 Home Visit [facility] Sallie Lynne, RN [address] [place] [address] 11/08/2022 Home Visit [facility] Caleb Real PA-C [address] [place] [address] 11/11/2022 Office Visit Hematology Oncology Nita Cantrell CRNP [address] [place] [address] [place] [address] 01/17/2023 Office Visit Gastroenterology Ai Hunt CRNP [address] [place] [address] Scheduled Procedures Name Priority Associated Diagnoses Date/Ti [...] this encounter Visit Diagnoses Diagnosis Iron deficiency anemia, unspecified iron deficiency anemia type- Primary documented in this encounter Advance Directives Documents on File Type Date Recorded Patient Finish Rolls Operator Expl anation Power of Deputy Director Of Finance 12/16/2018 10:33 AM Nate peralta of Deputy Director Of Finance Latest Code Status on File Code Status [...] the patient have Health Care Power of Deputy Director Of Finance? No Healthcare Agents on File Name Relationship Healthcare Agent Relationshi p Communication Wesley Hassan Spouse Health Care Agent Care Teams Pr Specialist Relationship Specialty Start Date End Date Bella Power MD [address] [place] [address] [place] [address] PCP - General Family Medicine 04/02/19 documented as of this encounter
--- OUTSIDE RECORDS SUMMARY | 2023-01-25 20:41 | External Medical Summary | Summary of Care ---
Author Name Unknown Organization [facility] Address [address] [facility] [place] [address] Phone [phone] Care Team Providers Care Senior Devops Engineer Name Role Phone Bella Power MD Primary Care Prov ider Reason for Visit * Reason Onset Date Comments Endoscopy (Op Note) 10/23/2022 Capsule Encounter Details Date Type Department Care Team Description 10/23/2022 Nurse Only Gastroenterology, [facility] [address] [facility] [place] [address] [facility], Nurse Gastro [facility] 132 [facility] [place] [address] Endoscopy (Op Note) (Capsule) Allergies No known [...] 1 Each 1 11/27/2018 Active DIURETIC TITRATION PLANIndications: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er Apprentice sandro heart failure with preserved ejection fraction [...] group B, by GOLD 2017 classification ([facility]) Inhale by mouth 1 Puff [...] daily 22 g 0 09/09/2022 Active Nystatin 312089 UNIT/GM External Powder (Nystop) apply one application [...] once the recording is complete) Please call [phone], option #2 with questions. Video Capsule Endoscopy [...] once the recording is complete) Please call [phone], option #2 with questions. documented in this [...] of all instructions and tolerated procedure well. [id number] pamphlet reviewed with patient and Wesley. Consent signed by patients DAPHNE Wesley. Carlos Choe RN documented in this encounter Plan of Treatment Upcoming Encounters Date Type Specialty Care Team Description 11/08/2022 Home Visit [facility] Caleb Real PA-C [address] [place] [address] 11/11/2022 Office Visit [facility]ematology Oncology [facility] [address] [facility] [place] [address] 11/20/2022 Home Visit [facility] Sallie Lynne RN [address] [place] [address] 01/17/2023 Office Visit Gastroenterology Ai Hunt CRNP [address] [place] [address] Scheduled Procedures Name Priority Associated Diagnoses Date/Ti [...] Documents on File Type Date Recorded Patient Extension Division Director Expl anation Power of Tuyere Fitter 12/16/2018 10:33 AM Nate r of Tuyere Fitter Latest Code Status on File Code Status [...] the patient have Health Care Power of Tuyere Fitter? No Healthcare Agents on File Name Relationship Healthcare Agent Relationshi p Communication Wesley Hassan Spouse Health Care Agent Care Teams Senior Devops Engineer Relationship Specialty Start Date End Date Bella Power MD [address] [place] [address] [place] [address] PCP - General Family Medicine 04/02/19 documented as of this encounter
--- OUTSIDE RECORDS SUMMARY | 2023-01-25 20:42 | External Medical Summary | Summary of Care ---
Author Name Unknown Organization [facility] Address [address] [facility] [place] [address] Phone [phone] Care Team Providers Care Two Way Radio Technician Name Role Phone Bella Power MD Primary Care Prov ider Reason for Visit * Reason Onset Date Comments [facility]: Maintenance 09/30/2022 Encounter Details Date Type Department Care Team Description 09/30/2022 Telephone [facility], [place] [address] [place] [address] [facility], Nurse [facility] [address] [place] [address] [facility]: Maintenance Allergies No known active allergiesdocumented as of this encounter (statuses as of 09/30/2022) Medications Medication Sig Dispensed Refills Start Date [...] 1 Each 1 11/27/2018 Active DIURETIC TITRATION PLANIndications:Poultry Service Technician sandro heart failure with preserved ejection fraction [...] allergic reaction). 0.3 mL 0 10/14/2019 Active zoster vac recomb adjuvanted (SHINGRIX) 50 MCG/0.5ML injectionIndications :Need for vaccination for zoster Inject 0.5 mL into a large muscle now and repeat dose in 60 to 180 days 1 Each 1 10/26/2019 Active Aspirin 81 MG Oral Tablet Delayed [...] daily 22 g 0 09/09/2022 Active Nystatin 780634 UNIT/GM External Powder (Nystop) apply one application externally twice daily 30 g 0 09/09/2022 Active Carbidopa-Levodopa 25-100 MG Oral Tablet (Sinemet) TAKE ONE TABLET BY MOUTH THREE TIMES A DAY WITH MEALS 90 Tablet 5 09/14/2022 4 Active documented as of this encounter (statuses as of 09/30/2022) Active Problems Problem Noted Date BMI 38.0-38.9,adult 09/12/2022 Overview: 210 Rectal bleeding [...] as of this encounter (statuses as of 09/30/2022) Resolved Problems Problem Noted Date Resolved Date [...] as of this encounter (statuses as of 09/30/2022) Immunizations Name Administration Dates Next Due COVID-19 [...] encounter Miscellaneous Notes * Telephone Encounter - Sheba Loza LPN - 09/30/2022 8:13 AM EDT Received VM message from spouse need to rescedule 10/15 appt as she had dialysis T-T-S Call to spouse Rescheduled to 10/16 at with RNCM documented in this encounter Plan of Treatment Upcoming Encounters Date Type Specialty Care Team Description 10/16/2022 Home Visit [facility] Sallie Lnyne RN [address] [place] [address] 11/08/2022 Home Visit [facility] C[place] Real PA-C [address] [place] [address] Scheduled Procedures Name Priority Associated Diagnoses Date/Ti [...] COMPLETED IN P AST YEAR FOR COPD 09/13/2023 09/12/2022 COVID-19 Vaccine Completed 01/17/2022, 11/2021, 01/02/2021, Additional history exists Colonoscopy Discontinued 09/20/2022, 11/15, 11/27/2015, Additional history exists Colorectal Cancer Screening Discontinued Cologuard Discontinued Fecal Occult Blood Test Discontinued Sigmoidoscopy Discontinued documented as of this encounter Medical Devices Not on filedocumented as of this encounter Advance Directives Documents on File Type Date Recorded Patient Water Valve Mechanic Expl anation Power of Human Resources Vice President 12/16/2018 10:33 AM Nate r of Human Resources Vice President Latest Code Status on File Code Status [...] the patient have Health Care Power of Human Resources Vice President? No Healthcare Agents on File Name Relationship Healthcare Agent Relationshi p Communication Wesley Hassan Spouse Health Care Agent Care Teams Two Way Radio Technician Relationship Specialty Start Date End Date Bella Power MD [address] [place] [address] [place] [address] PCP - General Family Medicine 04/02/19 documented as of this encounter
--- OUTSIDE RECORDS SUMMARY | 2023-01-25 20:42 | External Medical Summary | Summary of Care ---
Author Name Unknown Organization [facility] Address [address] [facility] [address] Phone [phone] Care Team Providers Care Lease Examiner Name Role Phone Bella Power MD Primary Care Prov ider Reason for Visit * Reason Onset Date Comments Pre Cert/Prior Auth 10/04/2022 Encounter Details Date Type Department Care Team Description 10/04/2022 Telephone Gastroenterology, [facility] [address] [place] [address] Ai Hunt CRNP [address] [place] [address] Pre Cert/Prior Auth Allergies No known active [...] 1 Each 1 11/27/2018 Active DIURETIC TITRATION PLANIndications:House Detective sandro heart failure with preserved ejection fraction [...] daily 22 g 0 09/09/2022 Active Nystatin 398028 UNIT/GM External Powder (Nystop) apply one application [...] Visit [facility] Sallie Lynne RN [address] [facility] [place] [address] 11/08/2022 Home Visit [facility] C[place] Real PA-C [address] [place] [address] 01/17/2023 Office Visit Gastroenterology Ai Hunt CRNP [address] [place] [address] Scheduled Procedures Name Priority Associated Diagnoses Date/Ti [...] Documents on File Type Date Recorded Patient Quality Consultant Expl anation Power of Plans Examiner 12/16/2018 10:33 AM Nate peralta of Plans Examiner Latest Code Status on File Code Status [...] the patient have Health Care Power of Plans Examiner? No Healthcare Agents on File Name Relationship Healthcare Agent Relationshi p Communication Wesley Hassan Spouse Health Care Agent Care Teams Lease Examiner Relationship Specialty Start Date End Date Bella Power MD [address] [place] [address] [place] [address] PCP - General Family Medicine 04/02/19 documented as of this encounter
--- OUTSIDE RECORDS SUMMARY | 2023-01-25 20:42 | External Medical Summary ---
Author Name Unknown Address Unknown Organization [id number]:[facility] [place] [address] [place] [address] Laboratory Report Ordering Provider Test Date Status SAYDA CORONA 10/04/2022 10:43:13 Final Observation Date Value Abnormality Reference (Units ) Status Iron 10/04/2022 10:43:13 44 33-151 (ug /dL) Final Iron-binding capacity 10/04/2022 10:43:13 268 250-425 (ug/dL) Final Transferrin Sat % 10/04/2022 10:43:13 16 15 -55 (%) Final Performing Location [facility] [place] [place] [address] [place] [address]
--- OUTSIDE RECORDS SUMMARY | 2023-01-25 20:42 | External Medical Summary ---
Author Name Unknown Address Unknown Organization [id number]:[facility] [place] [address] [facility] [address] [facility] [address] Laboratory Report Ordering Provider Test Date Status SAYDA CORONA 10/04/2022 10:43:13 Final Observation Date Value Abnormality Reference (Units ) Status WBC, Total 10/04/2022 10:43:13 6.18 4.00-10.80 (K/uL) Final RBC 10/04/2022 10:43:13 3.38 3.85-5.15 (M/uL) Final Hemoglobin 10/04/2022 10:43:13 10.4 Below low normal 12.0-15.3 (g/dL) Final HCT 10/04/2022 10:43:13 36.4 36.0-45.2 (%) Final MCV 10/04/2022 10:43:13 107.7 81.5-97.5 (fL) Final MCH 10/04/2022 10:43:13 30.8 27.0-34.0 (pg) Final MCHC 10/04/2022 10:43:13 28.6 32.0-36.0 (g/dL) Final RDW 10/04/2022 10:43:13 16.8 11.5-15.5 (%) Final Platelets 10/04/2022 10:43:13 205 140-400 (K/uL) Final MPV 10/04/2022 10:43:13 12.1 6.6-11.1 (fL) Final Nucleated erythrocytes/100 leukocytes [Ratio] in Blood by Automated count 10/04/2022 10:43:13 0 <=0 (/100 WBCs) Final Performing Location [facility] [place] [address] [place] [address]
--- OUTSIDE RECORDS SUMMARY | 2023-01-25 20:42 | External Medical Summary | Summary of Care ---
Author Name Unknown Organization [facility] Address [address] [facility] [place] [address] Phone [phone] Care Team Providers Care Radiocommunications Technician Name Role Phone Bella Power MD Primary Care Prov ider Reason for Visit * Reason Comments Outpatient Testing Encounter Details Date Type Department Care Team Description 10/04/2022 Laboratory Laboratory [address] [place] [address] [facility] [address] [place] [id number] Dyslipidemia, goal LDL below 100 Allergies No known active allergiesdocumented as of [...] 1 Each 1 11/27/2018 Active DIURETIC TITRATION PLANIndications:Manufacturing Machine Operator sandro heart failure with preserved ejection [...] 2017 classification ([facility]) Inhale by mouth 1 Puff in [...] daily 22 g 0 09/09/2022 Active Nystatin 300309 UNIT/GM External Powder (Nystop) apply one application [...] 10/16/2022 Home Visit [facility] Sallie Lynne, RN [address] [place] [address] 11/08/2022 Home Visit [facility] Caleb Real PA-C [address] [place] [address] Pending Results Name Type Priority Associated Diagnoses Date /Time LIPID PANEL WITH DIRECT LDL IF TG IS HIGH Lab Routine Dyslipidemia, goal LDL below 100 10/04/2022 10:43 AM EDT Scheduled Procedures Name Priority Associated Diagnoses [...] as of this encounter Visit Diagnoses Diagnosis Dyslipidemia, goal LDL below 100 Other and unspecified hyperlipidemia documented in this encounter Advance Directives Documents on File Type Date Recorded Patient Hull Line Crew Member Expl anation Power of Cut Out Marker 12/16/2018 10:33 AM Nate r of Cut Out Marker Latest Code Status on File Code Status [...] the patient have Health Care Power of Cut Out Marker? No Healthcare Agents on File Name Relationship Healthcare Agent Relationshi p Communication Wesley Lee Sonya Spouse Health Care Agent Care Teams Radiocommunications Technician Relationship Specialty Start Date End Date Bella Power MD [address] [place] [address] [place] [address] PCP - General Family Medicine 04/02/19 documented as of this encounter
--- OUTSIDE RECORDS SUMMARY | 2023-01-25 20:42 | External Medical Summary ---
Author Name Unknown Address Unknown Organization K01:[facility] [place] [address] [place] [address] Laboratory Report Ordering Provider Test Date Status SAYDA CORONA 10/04/2022 10:43:13 Final Observation Date Value Abnormality Reference (Units ) Status Vitamin B12 10/04/2022 10:43:13 9486 782-1916 (pg/mL) Final Performing Location LAB[facility]ATORY [facility] - [address] [place] [address]
--- OUTSIDE RECORDS SUMMARY | 2023-01-25 20:42 | External Medical Summary | Summary of Care ---
Author Name Unknown Organization [facility] Address [address] [facility] [place] [address] Phone [phone] Care Team Providers Care Regenerator Operator Name Role Phone Bella Power MD Primary Care Prov ider Encounter Details Date Type Department Care Team Description 09/20/2022 Result Scan Unspecified Department Frandy Castanon MD [address] [place] [address] <No scans attached> Allergies No known active allergiesdocumented as of this encounter (statuses as of 09/24/2022) Medications Medication Sig Dispensed Refills Start Date [...] 1 Each 1 11/27/2018 Active DIURETIC TITRATION PLANIndications:Waterproof Bag Sewer sandro heart failure with preserved ejection fraction [...] daily 22 g 0 09/09/2022 Active Nystatin 989789 UNIT/GM External Powder (Nystop) apply one application externally twice daily 30 g 0 09/09/2022 Active Carbidopa-Levodopa 25-100 MG Oral Tablet (Sinemet) TAKE ONE TABLET BY MOUTH THREE TIMES A DAY WITH MEALS 90 Tablet 5 09/14/2022 4 Active documented as of this encounter (statuses as of 09/24/2022) Active Problems Problem Noted Date BMI 38.0-38.9,adult [...] as of this encounter (statuses as of 09/24/2022) Resolved Problems Problem Noted Date Resolved Date Major depressive disorder, recurrent episode, sanjeev derate 08/09/2022 08/09/2022 Last Assessment & Plan: [...] as of this encounter (statuses as of 09/24/2022) Immunizations Name Administration Dates Next Due COVID-19 [...] Encounters Date Type Specialty Care Team Description 09/30/2022 Home Visit [facility] Sallie Lynne RN [address] [facility] [place] [address] 11/08/2022 Home Visit [facility] Caleb Real PA-C [address] [place] [address] Scheduled Procedures Name Priority Associated Diagnoses Date/Ti [...] Procedure Name Priority Date/Time Associated Diagnosis Comments PATHOLOGY SCANNED RESULT 09/20/2022 documented in this encounter Results * PATHOLOGY SCANNED RESULT (09/20/2022) 09/20/2022 Frandy Castanon MD PATHOLOGY documented in this encounter Advance Directives Documents on File Type Date Recorded Patient Resp Ther Expl anation Power of Safety Pin Assembling Machine Operator 12/16/2018 10:33 AM Nate r of Safety Pin Assembling Machine Operator Latest Code Status on File [...] the patient have Health Care Power of Safety Pin Assembling Machine Operator? No Healthcare Agents on File Name Relationship Healthcare Agent Relationshi p Communication Wesley Hassan Spouse Health Care Agent Care Teams Regenerator Operator Relationship Specialty Start Date End Date Bella Power MD [address] [place] [address] [place] [address] PCP - General Family Medicine 04/02/19 documented as of this encounter
--- OUTSIDE RECORDS SUMMARY | 2023-01-25 20:42 | External Medical Summary ---
Author Name Unknown Address Unknown Organization K01:[facility] [place] - [address] [place] [facility] [place] [address] Laboratory Report Ordering Provider Test Date Status SAYDA CORONA 10/04/2022 10:43:13 Final Observation Date Value Abnormality Reference (Units ) Status SYNC LEUKOCYTES IN BLOOD BY AUTOMATED COUNT 10/04/2022 10:43:13 6.18 4.00-10.80 (K/uL) Final Segs 10/04/2022 10:43:13 64.6 40.0-75.0 (%) Final Lymphs % 10/04/2022 10:43:13 17.2 Below low normal 18.0-42.0 (%) Final Monos 10/04/2022 10:43:13 9.5 1.0-11.0 (%) Final Eosinophils 10/04/2022 10:43:13 5.8 0.0-6.0 (%) Final Basos 10/04/2022 10:43:13 2.3 Above high normal 0.0-2.0 (%) Final Immature Granulocyte, Percent 10/04/2022 10:43:13 0.6 0.0-2.0 (%) Final Absolute Segs 10/04/2022 10:43:13 3.99 1.80-7.70 (K/uL) Final Lymphs, absolute 10/04/2022 10:43:13 1.06 1.00-4.80 (K/ul) Final Monos, Abs 10/04/2022 10:43:13 0.59 0.00-1.10 (K/uL) Final Eos, Abs 10/04/2022 10:43:13 0.36 0.00-0.70 (K/uL) Final Basos, Abs 10/04/2022 10:43:13 0.14 0.00-0.20 (K/uL) Final Immature Granulocytes, Number 10/04/2022 10:43:13 0.04 0.00-0.20 (K/uL) Final Performing Location [facility] [place] - [facility] [address] [facility] [address]
--- OUTSIDE RECORDS SUMMARY | 2023-01-25 20:42 | External Medical Summary ---
Author Name Unknown Address Unknown Organization K01:[facility] [place] - [address] [facility] [address] [facility] [address] Laboratory Report Ordering Provider Test Date Status SAYDA CORONA 10/04/2022 10:43:13 Final Observation Date Value Abnormality Reference (Units ) Status Ferritin 10/04/2022 10:43:13 419 Above high normal 13 -150 (ng/mL) Final Postmenopausal women have hi gher ferritin levels than pre-menopausal women. The above reference interval is based on pre-menopausal women. Performing Location [facility] [place] - [address] [facility] [address]
--- OUTSIDE RECORDS SUMMARY | 2023-01-25 20:42 | External Medical Summary ---
Author Name Unknown Address Unknown Organization K01:[facility] [place] [address] [place] [address] Laboratory Report Ordering Provider Test Date Status SAYDA CORONA 10/04/2022 10:43:13 Final Observation Date Value Abnormality Reference (Units ) Status Folic Acid 10/04/2022 10:43:13 >20.0 >4.5 (ng/ mL) Final Performing Location [facility] - [address] [place] [address]
--- OUTSIDE RECORDS SUMMARY | 2023-01-25 20:42 | External Medical Summary | Summary of Care ---
Author Name Unknown Organization [facility] Address [address] [facility] [place] [address] Phone [phone] Care Team Providers Care Account Services Manager Name Role Phone Bella Power MD Primary Care Prov ider Reason for Visit * Reason Onset Date Comments Hospital Follow-Up 09/28/2022 Encounter Details Date Type Department Care Team Description 09/28/2022 Telephone Family Medicine [address] [address] Bella Power MD [address] [place] [address] [place] [address] Hospital Follow-Up Allergies No known active [...] 1 Each 1 11/27/2018 Active DIURETIC TITRATION PLANIndications:Underground Foreman sandro heart failure with preserved ejection fraction [...] ndications:COPD, group B, by GOLD 2017 classification ([facility]) Inhale by mouth 1 Puff [...] daily 22 g 0 09/09/2022 Active Nystatin 755434 UNIT/GM External Powder (Nystop) apply one application [...] Miscellaneous Notes * Telephone Encounter - RENÉ Murdock - 09/30/2022 4:09 PM EDT Scheduled, pt aware. * Telephone Encounter - Monalisa Delgado LPN - 09/28/2022 11:28 AM EDT Needs hosp follow up appt Any provider * Telephone Encounter - RENÉ Whitten - 09/28/2022 10:32 AM EDT No Appointments Available Patient declined appointments?:no, no appts What Visit Type is needed? Hospital Discharge If Acute Visit Type is needed, were surrounding clinics offered to patient (Yes/No)? N/A Was patient offered appointments with other available providers (Yes/No)? N/A See Call Details? (Yes or No): Yes documented in this encounter Plan of Treatment Upcoming Encounters Date Type Specialty Care Team Description 10/03/2022 Office Visit Family Medicine Kurtis Siegel MD [address] [place] [address] [place] [address] 10/16/2022 Home Visit [facility] Sallie Lynne, RN [address] [place] [address] 11/08/2022 Home Visit [facility] Caleb Real PA-C [address] [place] [address] Scheduled Procedures Name Priority Associated Diagnoses Date/Ti [...] Documents on File Type Date Recorded Patient Acid Concentrator Expl anation Power of Screw Machine Operator Swiss Type 12/16/2018 10:33 AM Nate r of Screw Machine Operator Swiss Type Latest Code Status on File Code Status [...] the patient have Health Care Power of Screw Machine Operator Swiss Type? No Healthcare Agents on File Name Relationship Healthcare Agent Relationshi p Communication Wesley E Sonya Spouse Health Care Agent Care Teams Account Services Manager Relationship Specialty Start Date End Date Bella Power MD [address] [place] [address] [place] [id number] PCP - General Family Medicine 04/02/19 documented as of this encounter
--- OUTSIDE RECORDS SUMMARY | 2023-01-25 20:42 | External Medical Summary | Summary of Care ---
Author Name Unknown Organization [facility] Address [address] [facility] [place] [address] Phone [phone] Care Team Providers Care Account Resolution Analyst Name Role Phone Bella Power MD Primary Care Prov ider Encounter Details Date Type Department Care Team Description 09/20/2022 Result Scan Unspecified Department Frandy Castanon MD [address] [place] [address] <No scans attached> Allergies No known active allergiesdocumented as of this encounter (statuses as of 09/27/2022) Medications Medication Sig Dispensed Refills Start Date [...] 1 Each 1 11/27/2018 Active DIURETIC TITRATION PLANIndications:Heel Seat Pounder sandro heart failure with preserved ejection fraction [...] ndications:COPD, group B, by GOLD 2017 classification ([facility]) Inhale by mouth 1 Puff in [...] daily 22 g 0 09/09/2022 Active Nystatin 622135 UNIT/GM External Powder (Nystop) apply one application externally twice daily 30 g 0 09/09/2022 Active Carbidopa-Levodopa 25-100 MG Oral Tablet (Sinemet) TAKE ONE TABLET BY MOUTH THREE TIMES A DAY WITH MEALS 90 Tablet 5 09/14/2022 4 Active documented as of this encounter (statuses as of 09/27/2022) Active Problems Problem Noted Date BMI 38.0-38.9,adult [...] as of this encounter (statuses as of 09/27/2022) Resolved Problems Problem Noted Date Resolved Date [...] as of this encounter (statuses as of 09/27/2022) Immunizations Name Administration Dates Next Due COVID-19 [...] Encounters Date Type Specialty Care Team Description 10/15/2022 Home Visit [facility] Sallie Lynne RN [address] [facility] [place] [address] 11/08/2022 Home Visit [facility] C[place] Real PA-C [address] [place] [address] Scheduled Procedures Name Priority Associated Diagnoses Date/Ti [...] Documents on File Type Date Recorded Patient Insurance Claims Specialist Expl anation Power of Housekeeping Lead 12/16/2018 10:33 AM Nate r of Housekeeping Lead Latest Code Status on File Code Status [...] the patient have Health Care Power of Housekeeping Lead? No Healthcare Agents on File Name Relationship Healthcare Agent Relationshi p Communication Wesley Hassan Spouse Health Care Agent Care Teams Account Resolution Analyst Relationship Specialty Start Date End Date Bella Power MD [address] [place] [address] [place] [address] PCP - General Family Medicine 04/02/19 documented as of this encounter
--- OUTSIDE RECORDS SUMMARY | 2023-01-25 20:42 | External Medical Summary | Summary of Care ---
Author Name Unknown Organization [facility] Address [address] [facility] [place] [address] Phone [phone] Care Team Providers Care Circus Hand Name Role Phone Bella Power MD Primary Care Prov ider Reason for Visit * Reason Onset Date Comments Appointment 09/27/2022 Encounter Details Date Type Department Care Team Description 09/27/2022 [facility]phone [facility], [facility] [address] [place] [address] Makeda Ritchie, [facility] Paint Laboratory Technician Appointment Allergies No known active allergiesdocumented as [...] 1 Each 1 11/27/2018 Active DIURETIC TITRATION PLANIndications:Slab Polisher sandro heart failure with preserved ejection fraction [...] 2017 classification ([facility]) Inhale by mouth 1 Puff in [...] daily 22 g 0 09/09/2022 Active Nystatin 335628 UNIT/GM External Powder (Nystop) apply one application [...] encounter Miscellaneous Notes * Telephone Encounter - [facility] Paint Laboratory Technician - 09/27/2022 2:13 PM EDT Outbound call to patient regarding rescheduling her appointment for 10/15/2022 @ 2:00 pm with Sallie Rubin Asked if they could please call and confirm appointment RENÉ Garcia documented in this encounter Plan of Treatment Upcoming Encounters Date Type Specialty Care Team Description 10/15/2022 Home Visit [facility] Sallie Lynne, RN [address] [facility] [place] [address] 11/08/2022 Home Visit [facility] Caleb Real PA-C [address] [place] [address] Scheduled Procedures Name Priority Associated Diagnoses Date/Ti [...] Documents on File Type Date Recorded Patient X Ray Nurse Expl anation Power of Home Supervisor 12/16/2018 10:33 AM Nate r of Home Supervisor Latest Code Status on File Code [...] the patient have Health Care Power of Home Supervisor? No Healthcare Agents on File Name Relationship Healthcare Agent Relationshi p Communication Wesley E Sonya Spouse Health Care Agent Care Teams Circus Hand Relationship Specialty Start Date End Date Bella Power MD [address] [place] [address] [place] [phone] PCP - General Family Medicine 04/02/19 documented as of this encounter
--- OUTSIDE RECORDS SUMMARY | 2023-01-25 20:42 | External Medical Summary | Summary of Care ---
Author Name Unknown Organization [facility] Address [address] [place] [address] Phone [phone] Care Team Providers Care Lodging Facilities Manager Name Role Phone Bella Power MD Primary Care Prov ider Reason for Referral * Precert (Within 10 days (routine)) - Pending Review Specialty Diagnoses / Procedures Referred By Gray santiago Referred To Contact Radiology Diagnoses Anemia, unspecified type Procedures VIDEO CAPSULE ENDOSCOPY Ai Hunt CRNP [address] [place] [address] Referral ID Status Reason Start Date Expiration Date V isits Requested Visits Authorized [id number] Pending Review 10/04/2022 999 999 * Evaluate & Treat - Unlimited Visits (Within 30 days (routine)) - Authorized Specialty Diagnoses / Procedures Referred By Gray santiago Referred To Contact Hematology/Oncology / Hematology Oncology Diagnoses Anemia, unspecified type Ai Hunt CRNP [address] [place] [address] Referral ID Status Reason Start Date Expiration Date Visits Requested Visits Authorized [id number] Authorized Specialty Services Required 10/04/2022 999 999 [...] blood loss Rectal bleeding Kurtis Chirinos MD [address] [place] [address] [place] [phone] Referral ID Status Reason Start Date Expiration Date Visits Requested Visits Authorized [id number] Authorized Specialty Services Required 10/03/2022 999 999 Encounter Details Date Type Department Care Team Description 10/04/2022 Office Visit Gastroenterology [address] [place] [address] Ai Hunt CRNP [address] [place] [address] Anemia, unspecified type*; Rectal bleeding Allergies No known active allergiesdocumented [...] 1 Each 1 11/27/2018 Active DIURETIC TITRATION PLANIndications: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 sandro heart failure with preserved ejection fraction [...] B, by GOLD 2017 classification ([facility]) Inhale by mouth 1 Puff [...] daily 22 g 0 09/09/2022 Active Nystatin [id number] UNIT/GM External Powder (Nystop) apply one application [...] CC: F/U rectal bleeding 10/04/22: Admitted at [facility] earlier this month for colonoscopy and hysteroscopy [...] chronic diastolic (congestive) heart failure ([facility]) 03/04/2020 [facility] Allergic rhinitis 02/15/2000 acute BMI 38.0-38.9,adult 08/28/2009 Chronic Sinusitis Unspecified Controlled substance agreement signed 11/25/2016 COVID-19 10/23/2021 Cystitis 05/23/2022 admitted [facility] home on cefuroxime Dyslipidemia, goal LDL below 100 Esophagitis determined by biopsy 04/19/2022 LA grade B esophagitis, inflammation gastric antrum, body and duodenum AYSHA (generalized anxiety disorder) Hearing loss, sensorineural 01/2005 History of non-ST elevation myocardial infarction (NSTEMI) 08/24/2018 HTN (hypertension) Meniere's disease Multiple falls 04/20/2019 History of falls on the pl NSTEMI (non-ST elevated myocardial infarction) ([facility]) 09/03/2018 Parkinson disease ([facility]) Restless leg syndrome 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 factor ([facility]) 07/18/2016 SDH (subdural hematoma) ([facility]) 04/20/2019 acute Serrated polyp of colon 09/20/2022 7 mm descending colon Sleep apnea Tinnitus 01/2005 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 ([facility]) Family History Problem Relation Age of Onset [...] performed by Garrett Chang MD at ENDOSCOPY [facility] EGD, FLEXIBLE, DIAGNOSTIC 04/19/2022 esophagitis, repeat 8-12 wks / [facility] EGD, FLEXIBLE, DIAGNOSTIC 06/26/2022 normal, retained food / [facility] EXPLORATION OF MAXILLARY SINUS 03/17/1995 Sinus Surgery HYSTEROSCOPY,DIAGNOSTIC 2022 atrophic endometrium, endometrial polyp INJECTION LUMBAR/SACRAL 07/31/2015 INJECTION SPINE LUMBAR OR SACRAL performed by Quincy Prado DO at OR [facility] INJECTION LUMBAR/SACRAL 08/15/2015 INJECTION SPINE LUMBAR OR SACRAL performed by Quincy Prado DO at OR [facility] INSER MARLI CAT,W/O PUMP;5YR/OLD N/A 11/04/2019 INSERT TUNNELED CENTRAL VENOUS CATHETER AGE 6 OR OLDER performed by Ortega Montez DO at OR [facility] LIGATE/CUT OVIDUCT(S) MISCELLANEOUS ORDER ([facility] ONLY) Bilateral Heel surgery MISCELLANEOUS ORDER ([facility] ONLY) Right 3rd toe nerve decompression, Dr. Del Real OR COLSC FLX W/RMVL OF TUMOR POLYP LESION [...] externally twice daily 22 g 0 Nystatin [id number] UNIT/GM External Powder (Nystop) apply one application [...] 20 mg twice daily - Hydrocortisone 2.5% OR prn hemorrhoids bleeding - Advised to use [...] records for their visit today. [facility] documented in this encounter Nursing Notes * [...] a video capsule. documented in this encounter Plan of Treatment Upcoming Encounters Date Type Specialty Care Team Description 10/16/2022 [facility] [address] [facility] [address] 11/08/2022 [facility] Caleb Real PA-C [address] [place] [address] 01/17/2023 Office Visit Gastroenterology Ai Hunt CRNP [address] [place] [address] Pending Results Name Type Priority Associated Diagnoses [...] Schedule VIDEO CAPSULE ENDOSCOPY Gastro Upper Routine Anemia, unspecified type Ordered: 10/04/2022 Scheduled Procedures Name Priority Associated [...] as of this encounter Visit Diagnoses Diagnosis Anemia, unspecified type- Primary Rectal bleeding Hemorrhage of rectum and anus documented in this encounter Advance Directives Documents on File Type Date Recorded Patient Technical Support Representative Expl anation Power of Cross Tie Maker 12/16/2018 10:33 AM Nate r of Cross Tie Maker Latest Code Status on File Code Status [...] the patient have Health Care Power of Cross Tie Maker? No Healthcare Agents on File Name Relationship Healthcare Agent Relationshi p Communication Wesley Hassan Spouse Health Care Agent Care Teams Lodging Facilities Manager Relationship Specialty Start Date End Date Bella Power MD [address] [place] [address] [place] [phone] PCP - General Family Medicine 04/02/19 documented as of this encounter
--- OUTSIDE RECORDS SUMMARY | 2023-01-25 20:42 | External Medical Summary ---
Author Name Unknown Address Unknown Organization K01:[facility] [place] [facility] [address] [facility] [address] [place] [address] Laboratory Report Ordering Provider Test Date Status OSMANY RINCON 10/04/2022 10:43:13 Final Observation Date Value Abnormality Reference (Units ) Status Triglyceride 10/04/2022 10:43:13 135 <=174 ( mg/dL) Final Triglyceride Reference Range s (mg/dL):
<150 Acceptable
150-174 Borderline high
175-499 High
>=500 Very high Cholesterol 10/04/2022 10:43:13 135 <200 (mg /dL) Final Total Cholesterol Reference Ranges (mg/dL):
<200 Desirable
200-239 Borderline high
>=240 High HDL 10/04/2022 10:43:13 63 >49 (mg/dL ) Final HDL Cholesterol Reference Ra nges (mg/dL):
>=60 High (Desirable)
<50 Low (Undesirable) For Females
<40 Low (Undesirable) For Males NON-HDL CHOLESTEROL 10/04/2022 10:43:13 72 <=159 (mg/dL) Final Non-HDL Cholesterol Referenc e Range (mg/dL):
<100 Target level for high risk ASCVD patient
<130 Optimal for general population
130-159 Near optimal for general population
160-189 Borderline High
190-219 High
>=220 Very High LDL, (calculated) 10/04/2022 10:43:13 45 <= 129 (mg/dL) Final LDL Cholesterol Reference Ra nges (mg/dL):
<70 Target level for high risk ASCVD patient
<100 Optimal for general population
100-129 Near optimal for general population
130-159 Borderline high
160-189 High
>=190 Very high Performing Location [facility] [place] - [address] [facility] [place] [address]
--- OUTSIDE RECORDS SUMMARY | 2023-01-25 20:42 | External Medical Summary | Summary of Care ---
Author Name Unknown Organization [facility] Address [address] [facility] [address] Phone [phone] Care Team Providers Care Charge Weigher Name Role Phone Bella Power MD Primary Care Prov ider Reason for Visit * Reason Onset Date Comments Appointment 10/04/2022 Hem/Onc Encounter Details Date Type Department Care Team Description 10/04/2022 Telephone Gastroenterology, [facility] [address] [place] [address] Ai Hunt CRNP [address] [place] [address] Appointment (Hem/Onc ) Allergies No known active allergiesdocumented as of [...] Each 1 11/27/2018 Active DIURETIC TITRATION PLANIndications: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 Mechanic sandro heart failure with preserved ejection fraction [...] daily 22 g 0 09/09/2022 Active Nystatin 850803 UNIT/GM External Powder (Nystop) apply one application [...] * Telephone Encounter - RENÉ Murdock - 10/04/2022 11:06 AM EDT Kami needs scheduled with Hem/Onc for: Anemia, unspecified type [D64.9] - Primary documented in this encounter Plan of Treatment Upcoming Encounters Date Type Specialty Care Team Description 10/16/2022 [facility] Visit [facility] Sallie Lynne RN [address] [facility] [place] [address] 11/08/2022 [facility] Visit [facility] Caleb Real PA-C [address] [place] [address] 01/17/2023 Office Visit Gastroenterology Ai Hunt CRNP [address] [place] [address] Scheduled Procedures Name Priority Associated Diagnoses Date/Ti [...] Documents on File Type Date Recorded Patient Licensed Practical Nurse Clinic Nurse Expl anation Power of Arc Air Operator 12/16/2018 10:33 AM Nate r of Arc Air Operator Latest Code Status on File Code [...] the patient have Health Care Power of Arc Air Operator? No Healthcare Agents on File Name Relationship Healthcare Agent Relationshi p Communication Wesley Hassan Spouse Health Care Agent [phone] (Mobile) Care Teams Charge Weigher Relationship Specialty Start Date End Date Bella Power MD [address] [place] [address] [place] [phone] PCP - General Family Medicine 04/02/19 documented as of this encounter
--- OUTSIDE RECORDS SUMMARY | 2023-01-25 20:42 | External Medical Summary | Summary of Care ---
Author Name Unknown Organization [facility] Address [address] [place] [address] Phone [phone] Care Team Providers Care Education Department Chair Name Role Phone Bella Power MD Primary Care Prov ider Reason for Referral * Evaluate & Treat - Unlimited Visits (Within 10 days (routine)) - Authorized Specialty Diagnoses / Procedures Referred By Gray santiago Referred To Contact Gastroenterology Diagnoses Anemia due to GI blood loss Rectal bleeding Kurtis Siegel MD [address] [place] [address] [place] [id number] Referral ID Status Reason Start Date Expiration Date Visits Requested Visits Authorized [id number] Authorized Specialty Services Required 10/03/2022 999 999 Question Answer Referral Priority Within 10 days (routine) For what condition is the patient being referred? All Gastro Conditions Comments GI bleeding, ?capsule endoscopy Reason for Visit * Reason Comments Hospital Follow-Up Encounter Details Date Type Department Care Team Description 10/03/2022 Office Visit Family Medicine [address] [place] [phone] Kurtis Siegel MD [address] [place] [address] [place] [id number] Anemia due to GI blood loss*; 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HCC); Rectal bleeding Allergies No known active allergiesdocumented as of this encounter (statuses as of 10/03/2022) Medications Medication Sig Dispensed Refills Start Date End Date Status ONETOUCH DELIRVIN LANCETS 33G MISC Up to 4 times daily 100 Each 6 11/24/2014 Active Glucose Blood (ONETOUCH ULTRA BLUE) STRP Use as directed 4 times a day as needed (Diabetes). Use up to four times a day as directed 100 Strip 11 02/03/2018 Active Nebulizers (NEBULIZER COMPRESSOR) MISCIndications:GLOVE FACTORY SEWER D, group B, by GOLD 2017 classification ([facility]) Inhale via nebulizer. Use as directed. 1 [...] 2017 classification ([facility]) Inhale by mouth 1 Puff in [...] the evening. 180 Tablet 1 04/15/2022 Active Lidocaine-Prilocain e 2.5-2.5 % External Cream [...] daily 22 g 0 09/09/2022 Active Nystatin 496226 UNIT/GM External Powder (Nystop) apply one application externally twice daily 30 g 0 09/09/2022 Active Carbidopa-Levodopa 25-100 MG Oral Tablet (Sinemet) TAKE ONE TABLET BY MOUTH THREE TIMES A DAY WITH MEALS 90 Tablet 5 09/14/2022 4 Active zoster vac recomb adjuvanted (SHINGRIX) 50 MCG/0.5ML injectionIndication s:Need for vaccination for zoster Inject 0.5 mL into a large muscle now and repeat dose in 60 to 180 days 1 Each 1 10/26/2019 3 Discontinu ed(Patient preference /discontin uation) documented as of this encounter (statuses as of 10/03/2022) Active Problems Problem Noted Date Serrated polyp [...] as of this encounter (statuses as of 10/03/2022) Resolved Problems Problem Noted Date Resolved Date [...] as of this encounter (statuses as of 10/03/2022) Immunizations Name Administration Dates Next Due COVID-19 [...] Sign Reading Time Taken Comments Blood Pressure 100/58 10/03/2022 2:54 PM EDT Pulse 60 10/03/2022 2:54 PM EDT Temperature - - Respiratory Rate - - Oxygen Saturation 60% 10/03/2022 2:54 PM EDT Inhaled Oxygen Concentration - - Weight 105.9 kg (233 lb 8 oz) 10/03/2022 2:54 PM EDT Height - - Body Mass Index 42.71 09/03/2022 2:55 PM EDT documented in this [...] as of this encounter Progress Notes * Kurtis Siegel MD - 10/03/2022 2:55 PM EDT Kami was admitted 09/19 and discharged 09/22 for planned admission for hysteroscopy for bleeding, and she had a colonoscopy too and they removed a serrated polyp. She continues to have intermittent black stools and then bright red blood. She had UGI endoscopy in Apr that showed LA grade B esophagitis,erythema of gastric antrum, body, and duodenum, and with starting Protonix, a second scope in June showed resolution. Kami says she feels ok, had dementia. has power of research attorney and he was not there when she got discharged on 09/22 so he has no idea what is going on or where she is bleeding. I don't really either. I went over what I could find. Med list seems ok Past Medical History: Diagnosis Date (HFpEF) heart failure with preserved ejection fraction (HCC) Acute on chronic diastolic (congestive) heart failure ([facility]) 03/04/2020 [facility] Allergic rhinitis 02/15/2000 acute BMI 38.0-38.9,adult 08/28/2009 Chronic Sinusitis Unspecified Controlled substance agreement signed 11/25/2016 COVID-19 10/23/2021 Cystitis 05/23/2022 admitted [facility] home on cefuroxime Dyslipidemia, goal LDL below 100 Esophagitis determined by biopsy 04/19/2022 LA grade B esophagitis, inflammation gastric antrum, body and duodenum AYSHA (generalized anxiety disorder) Hearing loss, sensorineural 01/2005 History of non-ST elevation myocardial infarction (NSTEMI) 08/24/2018 HTN (hypertension) Meniere's disease Multiple falls 04/20/2019 History of falls on the pl NSTEMI (non-ST elevated myocardial infarction) ([facility]) 09/03/2018 Parkinson disease ([facility]) Restless leg syndrome 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 factor ([facility]) 07/18/2016 SDH (subdural hematoma) ([facility]) 04/20/2019 acute Serrated polyp of colon 09/20/2022 7 mm descending colon Sleep apnea Tinnitus 01/2005 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 Del Real CARPAL TUNNEL SURGERY Bilateral COLONOSCOPY, DIAGNOSTIC (RECTUM) 11/27/2015 normal, repeat 10 yrs/COLONOSCOPY FLEXIBLE PROXIMAL DIAGNOSTIC performed by Garrett Chang MD at ENDOSCOPY [facility] EGD, FLEXIBLE, DIAGNOSTIC 04/19/2022 esophagitis, repeat 8-12 wks / [facility] EGD, FLEXIBLE, DIAGNOSTIC 06/26/2022 normal, retained food / [facility] EXPLORATION OF MAXILLARY SINUS 03/17/1995 Sinus Surgery HYSTEROSCOPY,DIAGNOSTIC 2022 atrophic endometrium, endometrial polyp INJECTION LUMBAR/SACRAL 07/31/2015 INJECTION SPINE LUMBAR OR SACRAL performed by Quincy Prado, DO at OR [facility] INJECTION LUMBAR/SACRAL 08/15/2015 INJECTION SPINE LUMBAR OR SACRAL performed by Quincy Prado, at OR [facility] INSER MARLI CAT,W/O PUMP;5YR/OLD N/A 11/04/2019 INSERT TUNNELED CENTRAL VENOUS CATHETER AGE 5 OR OLDER performed by Ortega Montez DO at OR [facility] LIGATE/CUT OVIDUCT(S) MISCELLANEOUS ORDER ([facility] ONLY) Bilateral Heel surgery MISCELLANEOUS ORDER ([facility] ONLY) Right 3rd toe nerve decompression, Dr. 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 Cholecalciferol (VITAMIN D3) 125 MCG (5000 UT) Tablet Take 1 Capsule by mouth in the morning. EPINEPHrine, Anaphylaxis, 1 MG/ML SOLN Inject 0.3 mL as directed as needed for Anaphylaxis (severe allergic reaction). 0.3 mL 0 Meclizine HCl 12.5 MG Oral Tablet (ANTIVERT) Take 1 Tablet by mouth 3 times a day as needed. Isosorbide Mononitrate ER 30 MG Oral Tablet Extended Release 24 Hour (Imdur) TAKE ONE TABLET BYMOUTH DAILY 90 Tablet 3 Hydrocortisone (Perianal) 2.5 % External Cream ADMINISTER INTO RECTUM OR APPLY TO EXTERNAL HEMORRHOIDS ONCE DAILY 28 g 2 Lidocaine-Prilocaine 2.5-2.5 % External Cream (Emla) APPLY SMALL AMOUNT TO ACCESS SITE (AVF) 1 TO 2 HOURS BEFORE DIALYSIS. COVER WITH OCCLUSIVE DRESSING (SARAN WRAP) Sertraline HCl 100 MG Oral Tablet (Zoloft) [...] externally twice daily 22 g 0 Nystatin 938109 UNIT/GM External Powder (Nystop) apply one application externally twice daily 30 g 0 ONETOUCH DELICA LANCETS 33G MISC Up to [...] heart failure managing provider. 1 Each 0 DIURETIC TITRATION PLAN If no improvement on day 3, contact heart failure managing provider. acetaminophen (TYLENOL) 325 MG Tablet Take 2 Tabs by mouth every 6 hours as needed for Pain. 30Tab 0 Aspirin 81 MG Oral Tablet Delayed Release Take 2 Tablets by mouth in the morning. 30 Tab 5 Coloplast Paste Use to hemorrhoids 1-2 times per day 57 g 3 Calcium Acetate (Phos Binder) 667 MG Oral Capsule (PHOSLO) Take 1 Cap by mouth three times a day with meals. 60 Cap 11 Breo Ellipta 200-25 MCG/INH Inhalation Aerosol Powder Breath Activated (fluticasone furoate-vilanterol) Inhale by mouth 1 Puff in the morning. 60 Each 0 Pantoprazole Sodium 20 MG Oral Tablet Delayed [...] ONE CAPSULE BEFORE BEDTIME 60 Capsule 5 Carbidopa-Levodopa 25-100 MG Oral Tablet (Sinemet) TAKE ONE TABLET BY MOUTH THREE TIMES A DAY WITH MEALS 90 Tablet 5 No current facility-administered medications for this visit. O: Blood pressure 100/58, pulse 60, weight 105.9 kg (233 lb 8 oz), SpO2 60 %. General appearance: well developed, well nourished and in no acute distress. She has blood on her shirt from dialysis Neck is supple without adenopathy or thyromegaly. Chest is symmetrical and moves normally. The lungs are clear without wheezes, rales, rhonchi or rubs, and the heart is regular without murmurs or gallops, or ectopy. PMI not displaced. A: Anemia due to GI blood loss (Primary) - GASTROENTEROLOGY REFERRAL OP 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HCC) Rectal bleeding - GASTROENTEROLOGY REFERRAL OP documented in this encounter Nursing Notes * Jenny Tilley LPN - 10/03/2022 2:47 PM EDT Pt states feeling "good". Pt's states still bleeding off and on; trying to find out where the bleeding is coming from. Pt's wondering results of biopsies also. documented in this encounter Plan of Treatment Upcoming Encounters Date Type Specialty Care Team Description 10/04/2022 Office Visit Gastroenterology Ai Hunt CRNP [address] [place] [address] 10/16/2022 Home Visit [facility] Sallie Lynne, RN [address] [facility] [place] [address] 11/08/2022 Home Visit [facility] Caleb Real PA-C [address] [place] [address] Scheduled Procedures Name Priority Associated Diagnoses Date/Ti me COLONOSCOPY FLEXIBLE PROXIMA L DIAGNOSTIC Recall Encounter for screening colonoscopy Scheduled Referrals Name Type Priority Associated Diagnoses Order Schedule GASTROENTEROLOGY REFERRAL OP Referral Within 10 days (routine) Anemia due to GI blood loss Rectal bleeding Ordered: 10/03/2022 Health Maintenance Due Date Last Done Comments [...] as of this encounter Visit Diagnoses Diagnosis Anemia due to GI blood loss- Primary 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 No Healthcare Agents on File Name Relationship Healthcare Agent Relationshi p Communication Wesley Hassan Spouse Health Care Agent Care Teams Education Department Chair Relationship Specialty Start Date End Date Bella Power MD [address] [place] [address] [place] [phone] PCP - General Family Medicine 04/02/19 documented as of this encounter
--- OUTSIDE RECORDS SUMMARY | 2023-01-25 20:43 | External Medical Summary | Summary of Care ---
Author Name Unknown Organization [facility] Address [address] [place] [address] Phone [phone] Care Team Providers Care Acid Purification Equipment Operator Name Role Phone Bella Power MD Primary Care Prov ider Reason for Visit * Reason Onset Date Comments Advice 09/11/2022 Encounter Details Date Type Department Care Team Description 09/11/2022 Telephone Nephrology, [address] [address] Services, Scheduling [address] [place] [address] Advice Allergies No known active allergiesdocumented as of this encounter (statuses as of 09/11/2022) Medications Medication Sig Dispensed Refills Start Date [...] 1 Each 1 11/27/2018 Active DIURETIC TITRATION PLANIndications:Employment Services Director sandro heart failure with preserved ejection [...] DAILY 28 g 2 11/30/2021 3 Active Carbidopa-Levodopa 25-100 MG Oral Tablet (Sinemet) TAKE ONE TABLET BY MOUTH THREE TIMES A DAY WITH MEALS 90 Tablet 5 03/05/2022 3 Active Pantoprazole Sodium 20 MG Oral [...] daily 22 g 0 09/09/2022 Active Nystatin 093302 UNIT/GM External Powder (Nystop) apply one application externally twice daily 30 g 0 09/09/2022 Active Amoxicillin 500 MG Oral Capsule (Amoxil) take one capsule (500mg) by mouth twice daily 14 Capsule 0 09/09/2022 Active documented as of this encounter (statuses as of 09/11/2022) Active Problems Problem Noted Date Rectal bleeding 08/09/2022 Last Assessment & Plan: Needs colonoscopy scheduled -CBC Hypothyroidism 06/17/2022 Last Assessment & Plan: TSH ordered Continue Synthroid Palliative care encounter 06/07/2021 Dementia associated with Parkinson's dis ease 05/31/2021 Last Assessment & Plan: Baseline -continue carbidopa levodopa, Lyrica AVF (arteriovenous fistula) 08/16/2020 Dependence on renal dialysis 12/03/2019 Last Assessment & Plan: continue Auryxia , nephrovite History of CVA (cerebrovascular accident ) 12/03/2019 Last Assessment & Plan: Continue aspirin, atorvastatin Morbid obesity with BMI of 40.0-44.9, ad ult 11/23/2019 Overview: Per Obesity protocol - Per Obesity protocol Personal history of fall 10/21/2019 Diabetes mellitus [...] as of this encounter (statuses as of 09/11/2022) Resolved Problems Problem Noted Date Resolved Date [...] as of this encounter (statuses as of 09/11/2022) Immunizations Name Administration Dates Next Due COVID-19 [...] Miscellaneous Notes * Telephone Encounter - RENÉ Jalloh - 09/11/2022 10:07 AM EDT Pt's is calling with some questions that needs to be answered prior to the patient having her colonoscopy on September 20. Pt is going to be admitted into the hospital on September 19 to prep for this procedure. The Anesthesiologist has some questions that need answered and gave him the questions. The questions have to do with her dialysis treatments. They need to know if the pt can have her dialysis done while she is admitted. Can someone please call him back as soon as possible so that they know what they are doing. Thank you [facility] Scheduling Services documented in this encounter Plan of Treatment Upcoming Encounters Date Type Specialty Care Team Description 09/11/2022 Home Visit [facility] Sallie Lynne RN [address] [facility] [place] [address] 09/12/2022 Office Visit Family Medicine Kurtis Siegel MD [address] [place] [address] [place] [phone] 09/20/2022 Procedure Only Endoscopy Jenny Winston, DO [address] [place] [address] 10/31/2022 Home Visit [facility] [place], Makeda Orona PA-C [address] [place] [address] Scheduled Procedures Name Priority Associated Diagnoses Date/Ti me COLONOSCOPY FLEXIBLE PROXIMA L DIAGNOSTIC Recall Encounter for screening colonoscopy Health Maintenance Due Date Last Done Comments Zoster Vaccines (1 of 2) 12/18/2011 10/23/2011 Depression Screening, Annual for Pts 12 and Over 01/22/2020 01/21/2019 TSH 08/11/2023 08/10/2022, 05/15, 08/21/2020, Additional history exists O2 ASSESSMENT COMPLETED IN P AST YEAR FOR COPD 08/15/2023 08/14/2022 Colonoscopy Discontinued 11/27/2015, 11/15, 10/21/2005 Colorectal Cancer Screening Discontinued Influenza Vaccine (FLU shot) Completed , 05/31/2021, 11/16/2019, Additional history exists COVID-19 Vaccine Completed 01/17/2022, 11/2021, 01/02/2021, Additional history exists Cologuard Discontinued Fecal Occult Blood Test Discontinued Sigmoidoscopy Discontinued documented as of this encounter Medical Devices Not on filedocumented as of this encounter Advance Directives Documents on File Type Date Recorded Patient Manager Statistics Expl anation Power of Bath House Attendant 12/16/2018 10:33 AM Nate r of Bath House Attendant Latest Code Status on File Code Status [...] the patient have Health Care Power of Bath House Attendant? No Healthcare Agents on File Name Relationship Healthcare Agent Relationshi p Communication Wesley Lee Sonya Spouse Health Care Agent Care Teams Acid Purification Equipment Operator Relationship Specialty Start Date End Date Bella Power MD [address] [place] [address] [place] [phone] PCP - General Family Medicine 04/02/19 documented as of this encounter
--- OUTSIDE RECORDS SUMMARY | 2023-01-25 20:43 | External Medical Summary | Summary of Care ---
Author Name Unknown Organization [facility] Address [address] [facility] [place] [address] Phone [phone] Care Team Providers Care Manager Ent Name Role Phone Bella Power MD Primary Care Prov ider Reason for Visit * Reason Onset Date Comments Other 09/05/2022 Encounter Details Date Type Department Care Team Description 09/05/2022 Telephone Nephrology, [facility] [address] [facility] [place] [address] Erica Tobar MD [address] [facility] [place] [address] Other Allergies No known active allergiesdocumented as of this encounter (statuses as of 09/05/2022) Medications Medication Sig Dispensed Refills Start Date [...] 1 Each 1 11/27/2018 Active DIURETIC TITRATION PLANIndications:Fisher Diver Net sandro heart failure with preserved ejection fraction [...] ndications:COPD, group B, by GOLD 2017 classification (COASTAL [...] after dialysis. 90 Capsule 1 08/22/2022 Active documented as of this encounter (statuses as of 09/05/2022) Active Problems Problem Noted Date Rectal bleeding [...] as of this encounter (statuses as of 09/05/2022) Resolved Problems Problem Noted Date Resolved Date [...] as of this encounter (statuses as of 09/05/2022) Immunizations Name Administration Dates Next Due COVID-19 [...] encounter Miscellaneous Notes * Telephone Encounter - Jaron Jacobs LPN - 09/05/2022 1:25 PM EDT Wesley Pt aware of note below and He was very resistant to taking her to ER. I educated him and stated how Multiple Doctors agree he needs to take Kami to ER. He said I will talk to Kami and take her to The ER for the sores on her Butt area. Wesley said he has been washing them and she has 2 sore size of a Quarter and some small area and he is stated they are healing and improving. Still advised him she needs to have them looked at at treated in ER. Provider to address: Bella Rubio MD Reason for Call: No chief complaint on file. Contact: Telephone Call Contact Type: Emergency Room Save Outcome: Resistant Total Time including non face to face (minutes): 10 * Telephone Encounter - Bella Rubio MD - 09/05/2022 12:58 PM EDT NURSING PLEASE CALL PATIENT/ AND ADVISE THEY GO TO ER FOR HER SACRAL WOUNDS AND INFECTION I am very concerned about this patient. Her acute issues include: 1. Multiple decubitii, concerns for cellulitis and abscess with purulent drainage 2. Rectal bleeding with acute anemia 3. Thickened Endometrium with concern for possible cancer 4. Fully dependant on for ADLs (wheelchair bound) - stating her needs exceed his capacity (eg bowel prep) Chronic underlying issues that are complicating her acute issues: 1. ESRD on dialysis 2. Parkinsons wheelchair bound 3. H/o stroke/ cognitive deficit She needs to be seen at the ER today for ACUTE issue of wounds/cellulitis and when stable, considercolonoscopy/ D&C, and needs HIGHER level of support during recovery than can be provided at home (eg SNF, evidenced by development of recent decubitii, she is failing home environment.) * Telephone Encounter - Erica Tobar MD - 09/05/2022 12:16 PM EDT Patient's reported to dialysis nurses on FridaySeptember 03 that she has multiple wounds on her buttocks some of which are draining purulent fluid; dialysis nurses unable to evaluate pt backside. Nurses advised ER evaluation but these concerns were apparently not conveyed to ER team since ER visit focused on her anemia. Recommend if possible evaluation by [facility] at home as soon as feasible because this may affect/impact planned September 20 admission to [facility] for combined colonoscopy and hysteroscopy. GI, RN DIABETES FYI documented in this encounter Plan of Treatment Upcoming Encounters Date Type Specialty Care Team Description 09/11/2022 Home Visit [facility] Sallie Lynne, RN [address] [facility] [place] [address] 09/20/2022 Procedure Only Endoscopy Jenny Winston, DO [address] [place] [address] 10/31/2022 Home Visit [facility] Makeda Parada PA-C [address] [place] [address] Scheduled Procedures Name Priority Associated Diagnoses Date/Ti [...] Documents on File Type Date Recorded Patient Indian Blanket Weaver Expl anation Power of Chemical Pathologist 12/16/2018 10:33 AM Nate peralta of Chemical Pathologist Latest Code Status on File Code Status [...] Question Answer Comments Discussion of Advance Direct carni occurred with: Not Discussed Does the patient have a Living Will? No Does the patient have Health Care Power of Chemical Pathologist? No Healthcare Agents on File Name Relationship Healthcare Agent Relationshi p Communication Wesley Hassan Spouse Health Care Agent [phone] (Mobile) Care Teams Manager Ent Relationship Specialty Start Date End Date Bella Power MD [address] [place] [address] [place] [phone] PCP - General Family Medicine 04/02/19 documented as of this encounter
--- OUTSIDE RECORDS SUMMARY | 2023-01-25 20:43 | External Medical Summary | Summary of Care ---
Author Name Unknown Organization [facility] Address [address] [facility] [place] [address] Phone [phone] Care Team Providers Care Leg Breaker Name Role Phone Bella Power MD Primary Care Prov ider Reason for Visit * Reason Comments Hospital Follow-Up Encounter Details Date Type Department Care Team Description 09/12/2022 Office Visit Family Medicine [address] [place] [address] Kurtis Siegel MD [address] [place] [address] [place] [id number] Skin ulcer of sacrum, limited to breakdown of skin ([facility])*; Type 2 diabetes mellitus with hemoglobin A1c goal of less than 7.0% ([facility]); Hypothyroidism due to acquired atrophy of thyroid; Mild neurocognitive disorder; Acquired hypothyroidism; Dependence on renal dialysis ([facility]) Allergies No known active allergiesdocumented as of this encounter (statuses as of 09/12/2022) Medications Medication Sig Dispensed Refills Start Date [...] , group B, by GOLD 2017 classification ([facility]) Inhale via nebulizer. Use as directed. 1 Each 1 11/27/2018 Active DIURETIC TITRATION PLANIndications:Turbine Engineer sandro heart failure with preserved ejection [...] daily 22 g 0 09/09/2022 Active Nystatin 774246 UNIT/GM External Powder (Nystop) apply one application externally twice daily 30 g 0 09/09/2022 Active Amoxicillin 500 MG Oral Capsule (Amoxil) take one capsule (500mg) by mouth twice daily 14 Capsule 0 09/09/2022 Active documented as of this encounter (statuses as of 09/12/2022) Active Problems Problem Noted Date BMI 38.0-38.9,adult [...] as of this encounter (statuses as of 09/12/2022) Resolved Problems Problem Noted Date Resolved Date [...] as of this encounter (statuses as of 09/12/2022) Immunizations Name Administration Dates Next Due COVID-19 [...] 50 Q uit: 04/20/1989 Smokeless Tobacco: Never Tobacco Cessation:Counseling Given: Not Answered Comments:smoked since 19 years of age. Smokes a [...] Sign Reading Time Taken Comments Blood Pressure 103/50 09/12/2022 2:39 PM EDT Pulse 67 09/12/2022 2:39 PM EDT Temperature 36.6 C (97.9 F) 09/12/2022 2:39 PM ED T Respiratory Rate 16 09/12/2022 2:39 PM EDT Oxygen Saturation 94% 09/12/2022 2:39 PM EDT Inhaled Oxygen Concentration - - Weight 108.4 kg (239 lb) 09/12/2022 2:39 PM EDT Height - - Body Mass Index 43.71 09/03/2022 2:55 PM EDT documented in this [...] Progress Notes * Kurtis Siegel MD - 09/12/2022 2:43 PM EDT Kami was admitted to [facility] 09/05, discharged 09/09 for sacral ulcers, noted during her dialysis treatment. Home on amoxicillin. She asks if she needs dialysis. Yes, if she wants to live. [facility] says the area is a little excoriated. She is getting scoped and having a hysteroscopy on 09/20. She is not on anything for diabetes, last A1c we have was 5.3. Past Medical History: Diagnosis Date (HFpEF) heart failure with preserved ejection fraction (HCC) Acute on chronic diastolic (congestive) heart failure (HCC) 03/04/2020 [facility] Allergic rhinitis 02/15/2000 acute BMI 35-39 ISOLATED (SEE ACTUAL BMI) 08/28/2009 bmi [address] More specific code on pl Per Obesity Protocol, #19 Chronic Sinusitis Unspecified Controlled substance agreement signed 11/25/2016 COVID-19 10/23/2021 Dyslipidemia, goal LDL below 100 AYSHA (generalized anxiety disorder) Hearing loss, sensorineural 01/2005 History of non-ST elevation myocardial infarction (NSTEMI) 08/24/2018 HTN (hypertension) Meniere's disease Multiple falls 04/20/2019 History of falls on the pl NSTEMI (non-ST elevated myocardial infarction) (HCC) 09/03/2018 Parkinson disease (HCC) Restless leg syndrome 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 factor ([facility]) 07/18/2016 SDH (subdural hematoma) ([facility]) 04/20/2019 acute Sleep apnea Tinnitus 01/2005 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 ([facility]) Past Surgical History: Procedure Laterality Date ARTHROPLASTY KNEE TOTAL Left Dr. Del Real CARPAL TUNNEL SURGERY Bilateral COLONOSCOPY, DIAGNOSTIC (RECTUM) 11/27/2015 normal, repeat 10 yrs/COLONOSCOPY FLEXIBLE PROXIMAL DIAGNOSTIC performed by Garrett Chang MD at ENDOSCOPY [facility] EGD, FLEXIBLE, DIAGNOSTIC 04/19/2022 esophagitis, repeat 8-12 wks / [facility] EXPLORATION OF MAXILLARY SINUS 03/17/1995 Sinus Surgery INJECTION LUMBAR/SACRAL 07/31/2015 INJECTION SPINE LUMBAR OR SACRAL performed by Quincy Prado, at OR [facility] INJECTION LUMBAR/SACRAL 08/15/2015 INJECTION SPINE LUMBAR OR SACRAL performed by Quincy Prado, at OR [facility] INSER MARLI CAT,W/O PUMP;5YR/OLD N/A 11/04/2019 INSERT TUNNELED CENTRAL VENOUS CATHETER AGE 6 OR OLDER performed by Ortega Montez DO at OR [facility] LIGATE/CUT OVIDUCT(S) MISCELLANEOUS ORDER ([facility] ONLY) Bilateral Heel surgery MISCELLANEOUS ORDER ([facility] ONLY) Right 3rd toe nerve decompression, Dr. 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 [...] mouth in the morning. 30 Tab 5 Calcium Acetate (Phos Binder) 667 MG Oral [...] EXTERNAL HEMORRHOIDS ONCE DAILY 28 g 2 Carbidopa-Levodopa 25-100 MG Oral Tablet (Sinemet) TAKE ONE TABLET BY MOUTH THREE TIMES A DAY WITH MEALS 90 Tablet 5 Pantoprazole Sodium 20 MG Oral Tablet [...] externally twice daily 22 g 0 Nystatin 022976 UNIT/GM External Powder (Nystop) apply one application externally twice daily 30 g 0 Amoxicillin 500 MG Oral Capsule (Amoxil) take one capsule (500mg) by mouth twice daily 14 Capsule 0 [employer] LANCETS 33G MISC Up to 4 times daily 100 Each 6 Glucose Blood (Anchor SemiconductorTOUCH ULTRA BLUE) STRP Use as directed 4 times a day as needed (Diabetes). Use up to four times a day as directed 100 Strip 11 zoster vac recomb adjuvanted (SHINGRIX) 50 MCG/0.5ML injection Inject 0.5 mL into a large muscle now and repeat dose in 60 to 180 days 1 Each 1 Coloplast Paste Use to hemorrhoids 1-2 times per day 57 g 3 No current facility-administered medications for this visit. Lab Results Component Value Date/Time HEMOGLOBIN A1C - [facility] 5.3 05/31/2021 03:04 PM HEMOGLOBIN A1C - [facility] 5.2 08/21/2020 01:14 PM HEMOGLOBIN A1C - [facility] 5.1 03/23/2019 04:45 PM HEMOGLOBIN A1C - [facility] 4.9 05/01/2018 02:07 PM HEMOGLOBIN A1C - [facility] 5.3 10/13/2017 01:44 PM Results for orders placed or performed in visit on 08/10/22 COMPREHENSIVE METABOLIC PANEL Result Value Ref Range BUN 12 6 - 20 mg/dL Creatinine 3.3 (H) 0.5 - 1.0 mg/dL Estimated Glomerular Filtration Rate 14 (L) >=60 mL/min Sodium 138 135 - 146 mmol/L Potassium 3.8 3.5 - 5.1 mmol/L Chloride 94 (L) 98 - 107 mmol/L CO2 29 22 - 32 mmol/L Anion Gap 15 7 - 15 mmol/L Glucose 156 (H) 70 - 120 mg/dL Albumin 4.6 3.8 - 5.0 g/dL AST 31 10 - 35 U/L Alkaline Phosphatase 104 35 - 130 U/L Bilirubin, Total 0.2 <=1.2 mg/dL Calcium 9.4 8.4 - 10.2 mg/dL Protein 6.9 6.0 - 8.3 g/dL ALT 21 10 - 35 U/L Results for orders placed or performed in visit on 10/27/19 BASIC METAB PANEL, BMP Result Value Ref Range BUN 109 (H) 6 - 20 mg/dL Creatinine 5.2 (H) 0.5 - 1.0 mg/dL Estimated Glomerular Filtration Rate 7.6 (L) >60 Sodium 145 135 - 146 mmol/L Potassium 3.9 3.5 - 5.1 mmol/L Chloride 97 (L) 98 - 107 mmol/L CO2 25 22 - 32 mmol/L Anion Gap 23 (H) 7 - 15 mmol/L Glucose 94 70 - 120 mg/dL Calcium 7.5 (L) 8.4 - 10.2 mg/dL Lab Results Component Value Date/Time TSH - [facility] 1.56 08/10/2022 01:48 PM TSH - [facility] 2.16 05/31/2021 03:04 PM TSH - [facility] 0.42 08/21/2020 01:14 PM TSH - [facility] 2.61 02/25/2019 03:48 PM TSH - [facility] 1.27 08/01/2018 02:00 PM TSH - [facility] 5.31 (H) 05/30/2017 04:23 PM TSH - [facility] 0.617 01/30/2020 12:00 AM She gets labs at dialysis O: . Blood pressure 103/50, pulse 67, temperature 36.6 C (97.9 F), temperature source Tympanic,resp. rate 16, weight 108.4 kg (239 lb), SpO2 94 %. General appearance: well developed, well nourished and in no acute distress. Lungs clear. 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 Follow Up: Return if symptoms worsen or fail to improve. documented in this encounter Nursing Notes * Alisia Vázquez LPN - 09/12/2022 2:32 PM EDT [facility] follow up said to her, while I was bringing her back, " Heaven forbid if you would help yourself, so I will push your wheel chair" I asked if he was her . He replied "yes, unfortunately" said he isn't aware she even has an ulcer on buttocks/leg. He doesn't see any open sores. Pt denies any complaints. documented in this encounter Plan of Treatment Upcoming Encounters Date Type Specialty Care Team Description 09/20/2022 Procedure Only Endoscopy Jenny Winston, DO [address] [place] [address] 09/30/2022 Home Visit [facility] Sallie Lynne, RN [address] [facility] [address] [facility] [address] 10/31/2022 Home Visit [facility] Makeda Parada PA-C [address] [place] [address] Scheduled Procedures Name Priority Associated Diagnoses Date/Ti me COLONOSCOPY FLEXIBLE PROXIMA L DIAGNOSTIC Recall Encounter for screening colonoscopy Health Maintenance Due Date Last Done Comments Zoster Vaccines (1 of 2) 12/18/2011 10/23/2011 Depression Screening, Annual for Pts 12 and Over 01/22/2020 01/21/2019 TSH 08/11/2023 08/10/2022, 05/15, 08/21/2020, Additional history exists O2 ASSESSMENT COMPLETED IN P AST YEAR FOR COPD 09/12/2023 09/11/2022 Colonoscopy Discontinued 11/27/2015, 11/15, 10/21/2005 Colorectal Cancer Screening Discontinued Influenza Vaccine (FLU shot) Completed , 05/31/2021, 11/16/2019, Additional history exists COVID-19 Vaccine Completed 01/17/2022, 11/2021, 01/02/2021, Additional history exists Cologuard Discontinued Fecal Occult Blood Test Discontinued Sigmoidoscopy Discontinued documented as of this encounter Medical Devices Not on filedocumented as of this encounter Visit Diagnoses Diagnosis Skin ulcer of sacrum, limited to breakdown of skin (HCC)- Primary Type 2 diabetes mellitus with hemoglobin A1c goal of less than 7.0% (HCC) Hypothyroidism due to acquired atrophy of thyroid Mild neurocognitive disorder Acquired hypothyroidism Unspecified hypothyroidism Dependence on renal dialysis (HCC) Renal dialysis status documented in this encounter Advance Directives Documents on File Type Date Recorded Patient Circle Shear Operator Expl anation Power of Instructor Industrial Design 12/16/2018 10:33 AM Nate r of Instructor Industrial Design Latest Code Status on File Code Status [...] the patient have Health Care Power of Instructor Industrial Design? No Healthcare Agents on File Name Relationship Healthcare Agent Relationshi p Communication Wesley Hassan Spouse Health Care Agent Care Teams Leg Breaker Relationship Specialty Start Date End Date Bella Power MD [address] [place] [address] [place] [address] PCP - General Family Medicine 04/02/19 documented as of this encounter
--- OUTSIDE RECORDS SUMMARY | 2023-01-25 20:43 | External Medical Summary | Summary of Care ---
Author Name Unknown Organization [facility] Address [address] [facility] [place] [address] Phone [phone] Care Team Providers Care Programming Internship Name Role Phone Bella Power MD Primary Care Prov ider Encounter Details Date Type Department Care Team Description 09/20/2022 Orders Only Gastroenterology, [facility] [address] [place] [address] Jenny Winston DO [address] [place] [address] Allergies No known active allergiesdocumented as of this encounter (statuses as of 09/20/2022) Medications Medication Sig Dispensed Refills Start Date [...] directed. 1 Each 11/27/2018 Active DIURETIC TITRATION PLANIndications:Business Development Executive sandro heart failure with preserved ejection fraction [...] daily 22 g 0 09/09/2022 Active Nystatin 137958 UNIT/GM External Powder (Nystop) apply one application externally twice daily 30 g 0 09/09/2022 Active Carbidopa-Levodopa 25-100 MG Oral Tablet (Sinemet) TAKE ONE TABLET BY MOUTH THREE TIMES A DAY WITH MEALS 90 Tablet 5 09/14/2022 4 Active documented as of this encounter (statuses as of 09/20/2022) Active Problems Problem Noted Date BMI 38.0-38.9,adult [...] as of this encounter (statuses as of 09/20/2022) Resolved Problems Problem Noted Date Resolved Date [...] as of this encounter (statuses as of 09/20/2022) Immunizations Name Administration Dates Next Due COVID-19 [...] Sallie Lynne, RN [address] [place] [address] 10/31/2022 Home Visit [facility] Makeda Parada PA-C [address] [place] [address] Scheduled Procedures Name Priority Associated Diagnoses Date/Ti [...] P AST YEAR FOR COPD 09/13/2023 09/12/2022 Colonoscopy Discontinued 09/20/2022, 11/15, 11/27/2015, Additional history exists Colorectal Cancer Screening Discontinued COVID-19 Vaccine Completed 01/17/2022, 11/2021, 01/02/2021, Additional history exists Cologuard Discontinued Fecal Occult Blood Test Discontinued Sigmoidoscopy Discontinued documented as of this encounter Medical Devices Not on filedocumented as of this encounter Procedures Procedure Name Priority Date/Time Associated Diagnosis Comments COLONOSCOPY 09/20/2022 documented in this encounter Results * COLONOSCOPY (09/20/2022) 09/20/2022 Jenny Winston DO GASTRO LOWER documented in this encounter Advance Directives Documents on File Type Date Recorded Patient Emergency Room Specialist Expl anation Power of Manager Community Development 12/16/2018 10:33 AM Nate r of Manager Community Development Latest Code Status on File Code Status [...] the patient have Health Care Power of Manager Community Development? No Healthcare Agents on File Name Relationship Healthcare Agent Relationshi p Communication Wesely E Eggler Spouse Health Care Agent Care Teams Programming Internship Relationship Specialty Start Date End Date Bella Power MD [address] [place] [address] [place] [address] PCP - General Family Medicine 04/02/19 documented as of this encounter
--- OUTSIDE RECORDS SUMMARY | 2023-01-25 20:43 | External Medical Summary | Summary of Care ---
Author Name Unknown Organization [facility] Address [address] [place] [address] Phone [phone] Care Team Providers Care Market Research Specialist Name Role Phone Bella Power MD Primary Care Prov ider Reason for Visit * Reason Onset Date Comments Advice 09/02/2022 Encounter Details Date Type Department Care Team Description 09/02/2022 Telephone Nephrology, [address] [address] Services, Scheduling [address] [place] [address] Advice Allergies No known active allergiesdocumented as [...] 1 Each 1 11/27/2018 Active DIURETIC TITRATION PLANIndications:Curb Builder sandro heart failure with preserved ejection fraction [...] encounter Miscellaneous Notes * Telephone Encounter - Erica Tobar MD - 09/05/2022 12:13 PM EDT Dialysis team to call to inform him that if procedure is same-day only, she will not have dialysis at [facility]. If she is admitted than nephrology will be consulted for dialysis needs. She should continue routine outpatient dialysis up until she goes to [facility] per schedule * Telephone Encounter - Zeynep Miranda RN - 09/03/2022 11:06 AM EDT TE with pt's regarding dialysis prior to Colonoscopy. He was advised to discuss this with the nurses at the Dialysis Center and they will confirm orders with Dr Tobar at Dialysis. * Telephone Encounter - RENÉ Daley - 09/02/2022 3:18 PM EDT pts called in and she is scheduled for a colonoscopy for September. He wanted to make sure she was going to get her dialyses the day before. I need assistance as to who this message can get to. She is going to be admitted for this on September 20. Please assist. documented in this encounter Plan of Treatment Upcoming Encounters Date Type Specialty Care Team Description 09/11/2022 Home Visit [facility] Sallie Lynne, RN [address] [place] [address] 09/20/2022 Procedure Only Endoscopy [facility] Jenny Piter, DO [address] [place] [address] 10/31/2022 Home Visit [facility] Makeda Parada PA-C [address] [place] [address] Scheduled Procedures Name Priority Associated Diagnoses Date/Ti [...] Documents on File Type Date Recorded Patient Chiropractic Neurologist Expl anation Power of Testing Lead 12/16/2018 10:33 AM Nate r of Testing Lead Latest Code Status on File Code [...] patient have Health Care Power of Testing Lead? No Healthcare Agents on File Name Relationship Healthcare Agent Relationshi p Communication Wseley Hassan Spouse Health Care Agent Care Teams Market Research Specialist Relationship Specialty Start Date End Date Bella Power MD [address] [place] [address] [place] [address] PCP - General Family Medicine 04/02/19 documented as of this encounter
--- OUTSIDE RECORDS SUMMARY | 2023-01-25 20:43 | External Medical Summary | Summary of Care ---
Author Name Unknown Organization [facility] Address [address] [facility] [place] [address] Phone [phone] Care Team Providers Care Hand Tire Trimmer Name Role Phone Bella Power MD Primary Care Prov ider Reason for Visit * Reason Comments [facility]: Maintenance Encounter Details Date Type Department Care Team Description 09/11/2022 Home Visit [facility], [facility] [address] [place] [address] Sallie Lynne, RN [address] [place] [address] Allergies No known active allergiesdocumented as of this encounter (statuses as of 09/13/2022) Medications Medication Sig Dispensed Refills Start Date [...] 1 Each 1 11/27/2018 Active DIURETIC TITRATION PLANIndications:Parole Officer sandro heart failure with preserved ejection [...] B, by GOLD 2017 classification ([facility]) Inhale by mouth 1 Puff in [...] daily 22 g 0 09/09/2022 Active Nystatin 144162 UNIT/GM External Powder (Nystop) apply one application externally twice daily 30 g 0 09/09/2022 Active Amoxicillin 500 MG Oral Capsule (Amoxil) take one capsule (500mg) by mouth twice daily 14 Capsule 0 09/09/2022 Active documented as of this encounter (statuses as of 09/13/2022) Active Problems Problem Noted Date BMI 38.0-38.9,adult [...] as of this encounter (statuses as of 09/13/2022) Resolved Problems Problem Noted Date Resolved Date [...] as of this encounter (statuses as of 09/13/2022) Immunizations Name Administration Dates Next Due COVID-19 [...] Sign Reading Time Taken Comments Blood Pressure 108/56 09/11/2022 1:11 PM EDT Pulse 72 09/11/2022 1:11 PM EDT Temperature 36.8 C (98.2 F) 09/11/2022 1:11 PM ED T Respiratory Rate 18 09/11/2022 1:11 PM EDT Oxygen Saturation 93% 09/11/2022 1:11 PM EDT Inhaled Oxygen Concentration - - [...] Progress Notes * Sallie Lynne RN - 09/11/2022 1:09 PM EDT [facility] Drying Rack Changer Visit Date: 09/11/2022 Time: 1:09 PM Name: Kami Hassan : 1945 Current Concerns: Patient seen for follow up- recent utilization related to Sacral cellulitis- discharged home 09/09/22 with PO Amoxicillin- Muprocin to sacral excoriation, nystop to abd folds Scheduled for D&C/Colonoscopy 09/20- will receive prep at hospital. Patient in bed on arrival- Reports feeling good- glad to be home VS wnl Lungs clear bilaterally Sob with exertion No LE edema noted Voids some- "not a lot" Bowels wnl- per report Appetite good Fluid restriction Sacral area excoriated- aware to keep area clean and dry- apply muprocin 2% to area Bid apply nystop powder powder to abdomen folds as need for redness Physical Exam: BP 108/56 (BP Site: Left Arm, BP Position: Sitting, BP Cuff Size: Regular) | Pulse 72 | Temp 36.8 C (98.2 F) (Tympanic) | Resp 18 | SpO2 93% Pain 0 Physical Exam Constitutional: Appearance: Normal appearance. Cardiovascular: Rate and Rhythm: Normal rate. Pulses: Normal pulses. Heart sounds: Normal heart sounds. Pulmonary: Effort: Pulmonary effort is normal. Breath sounds: Normal breath sounds. Abdominal: General: Bowel sounds are normal. Palpations: Abdomen is soft. Musculoskeletal: General: Normal range of motion. Cervical back: Normal range of motion. Skin: General: Skin is warm and dry. Capillary Refill: Capillary refill takes 2 to 3 seconds. Neurological: General: No focal deficit present. Mental Status: She is alert and oriented to person, place, and time. Psychiatric: Mood and Affect: Mood normal. Problems/Symptoms: Review of Systems Constitutional: Negative. HENT: Negative. Eyes: Negative. Respiratory: Negative. Cardiovascular: Negative. Gastrointestinal: Negative. Endocrine: Negative. Genitourinary: Negative. Musculoskeletal: Negative. Skin: Negative. Allergic/Immunologic: Negative. Neurological: Negative. Hematological: Negative. Psychiatric/Behavioral: Negative. Medication Reconciliation: (See medication list) Does patient take medications as ordered: Yes Patient Well Being: PHQ2/9: No questionnaires available. Within normal limits [facility]-10 Completed this Visit: Yes. [facility]-10: Reason Completed: Status post ED visit/hospital admission [facility]-10 ([facility]) Fall Risk Assessment Tool Age 65+: Yes (09/11/221299) Diagnosis (3 or more co-existing): Yes (09/11/221299) Prior history of falls within 3 months: No (09/11/221299) Incontinence: Yes (09/11/221299) Visual impairment: Yes (09/11/221299) Impaired functional mobility: Yes (09/11/221299) Environmental hazards: No (09/11/221299) Poly Pharmacy (4 or more prescriptions - any type): Yes (09/11/22 1300) Pain affecting level of function: No (09/11/22 1300) Cognitive impairment: No (09/11/22 1300) Score - a score of 4 or more is considered at risk for fallin (09/11/22 1300) [facility]-10 Interventions: Fall education provided, reviewed/provided Fall brochure Advanced Care Planning: POLST. Patient's Goals of Care: 1. Stay out of the hospital 2. Not to get sick Reinforcement/Education: Reviewed s/s and prevention of UTI: Symptoms: -burning with urination -increased urination -cloudy urine -dark urine -foul smelling urine -fever -weakness/change in mental status Prevention: -drink plenty of fluids -wear cotton panties -wipe from front to back -avoid delayed bladder emptying Treatment/Plan: CPAP at HS Continue medications as prescribed Keep all upcoming MD appointments Fall precautions Fluid restriction Dialysis Tue/Karen/Sat RN CM follow up in 4 weeks Home Interventions Provided: Reinforced current Plan of Care, including self-management and medication regimen Patient's 'Red Flags': 1. Weakness 2. Falls 3. Mental status change Patient Needs to Remember: Call [facility] with any medical concerns/ red flags Referrals Needed: n/a Follow Up: Is there cellular connectivity/connectivity in the home? Yes Does the patient have internet in the home? No Patient encouraged to call the intake phone number for all urgent but not emergent issues. Is the patient new to [facility] within the last 30 days? No, Assess appropriateness for upcoming telehealth visits. Cancel telehealth visits & schedule home visit with care customer solutions teammate(s)as indicated. Provider is in agreement with Plan of Care: Yes Scheduled to follow up with patient in 4 weeks. Sallie Dubon RN 09/11/2022 1:09 PM documented in this encounter Plan of Treatment Upcoming Encounters Date Type Specialty Care Team Description 09/20/2022 Procedure Only Endoscopy Jenny Winston, DO [address] [place] [address] 09/30/2022 Home Visit [facility] Sallie Lynne, RN [address] [place] [address] 10/31/2022 Home Visit [facility] Makeda Parada PA-C [address] [place] [address] Scheduled Procedures Name Priority Associated Diagnoses Date/Ti me COLONOSCOPY FLEXIBLE PROXIMA L DIAGNOSTIC Recall Encounter for screening colonoscopy Health Maintenance Due Date Last Done Comments Zoster Vaccines (1 of 2) 12/18/2011 10/23/2011 Depression Screening, Annual for Pts 12 and Over 01/22/2020 01/21/2019 TSH 08/11/2023 08/10/2022, 05/15, 08/21/2020, Additional history exists O2 ASSESSMENT COMPLETED IN P AST YEAR FOR COPD 09/13/2023 09/12/2022 Colonoscopy Discontinued 11/27/2015, 11/15, 10/21/2005 Colorectal Cancer Screening Discontinued Influenza Vaccine (FLU shot) Completed , 05/31/2021, 11/16/2019, Additional history exists COVID-19 Vaccine Completed 01/17/2022, 11/2021, 01/02/2021, Additional history exists Cologuard Discontinued Fecal Occult Blood Test Discontinued Sigmoidoscopy Discontinued documented as of this encounter Medical Devices Not on filedocumented as of this encounter Advance Directives Documents on File Type Date Recorded Patient Fiberglass Product Tester Expl anation Power of Factory Manager 12/16/2018 10:33 AM Nate r of Factory Manager Latest Code Status on File Code [...] the patient have Health Care Power of Factory Manager? No Healthcare Agents on File Name Relationship Healthcare Agent [facility] p Communication Wesley Hassan Spouse Health Care Agent Care Teams Hand Tire Trimmer Relationship Specialty Start Date End Date Bella Power MD [address] [place] [address] [place] [address] PCP - General Family Medicine 04/02/19 documented as of this encounter
--- OUTSIDE RECORDS SUMMARY | 2023-01-25 20:43 | External Medical Summary | Summary of Care ---
Author Name Unknown Organization [facility] Address [address] [facility] [place] [address] Phone [phone] Care Team Providers Care Lamp Wirer Name Role Phone Bella Power MD Primary Care Prov ider Reason for Visit * Reason Onset Date Comments Advice 08/30/2022 Encounter Details Date Type Department Care Team Description 08/30/2022 Telephone Family Medicine [address] [phone] Bella Power MD [address] [place], [place] [address] [address] Advice Allergies No known active allergiesdocumented as of this encounter (statuses as of 09/03/2022) Medications Medication Sig Dispensed Refills Start Date [...] 1 Each 1 11/27/2018 Active DIURETIC TITRATION PLANIndications:Scrummaster sandro heart failure with preserved ejection fraction [...] as of this encounter (statuses as of 09/03/2022) Active Problems Problem Noted Date Rectal bleeding [...] as of this encounter (statuses as of 09/03/2022) Resolved Problems Problem Noted Date Resolved Date [...] as of this encounter (statuses as of 09/03/2022) Immunizations Name Administration Dates Next Due COVID-19 [...] Telephone Encounter - Jaron Jacobs LPN - 09/03/2022 11:43 AM EDT See Other TE * Telephone Encounter - RENÉ [place] - 08/30/2022 11:17 AM EDT Re: Colonoscopy would not relay any more than that to me. documented in this encounter Plan of Treatment Upcoming Encounters Date Type Specialty Care Team Description 09/03/2022 Office Visit Gynecology Obstetrics Frandy Castanon MD [address] [place] [address] 09/11/2022 [facility]ne [facility] [address] [facility] [place] [address] 09/20/2022 Procedure Only Endoscopy Jenny Winston, [address] [place] [address] 10/31/2022 Home Visit [facility] Makeda Parada PA-C [address] [place] [address] Scheduled Procedures Name Priority Associated Diagnoses Date/Ti [...] Documents on File Type Date Recorded Patient Tire Duster Expl anation Power of Road Cleaner 12/16/2018 10:33 AM Nate r of Road Cleaner Latest Code Status on File Code Status [...] the patient have Health Care Power of Road Cleaner? No Healthcare Agents on File Name Relationship Healthcare Agent Relationshi p Communication Wesley Hassan Spouse Health Care Agent Care Teams Lamp Wirer Relationship Specialty Start Date End Date Bella Power MD [address] [place] [address] [place] [address] PCP - General Family Medicine 04/02/19 documented as of this encounter
--- OUTSIDE RECORDS SUMMARY | 2023-01-25 20:43 | External Medical Summary | Summary of Care ---
Author Name Unknown Organization [facility] Address [address] [facility] [place] [address] Phone [phone] Care Team Providers Care Pearl Peller Name Role Phone Bella Power MD Primary Care Prov ider Reason for Visit * Reason Onset Date Comments Other 09/05/2022 Encounter Details Date Type Department Care Team Description 09/05/2022 Telephone Nephrology, [facility] [address] [place] [address] Erica Toabr MD [address] [place] [address] Other Allergies No known active allergiesdocumented as of this encounter (statuses as of 09/06/2022) Medications Medication Sig Dispensed Refills Start Date [...] 1 Each 1 11/27/2018 Active DIURETIC TITRATION PLANIndications:Supply Chain Specialist sandro heart failure with preserved ejection [...] as of this encounter (statuses as of 09/06/2022) Active Problems Problem Noted Date Rectal bleeding [...] as of this encounter (statuses as of 09/06/2022) Resolved Problems Problem Noted Date Resolved Date [...] as of this encounter (statuses as of 09/06/2022) Immunizations Name Administration Dates Next Due COVID-19 [...] Telephone Encounter - Erica Tobar MD - 09/06/2022 2:51 PM EDT Pt admitted Coordinating w/ hospitalist team re moving up inpatient colonoscopy/oracle engineer eval and workign w/ case mgt on placement in addition to addressing buttock wounds * Telephone Encounter - Jaron Jacobs LPN [...] her anemia. Recommend if possible evaluation by [facility] as soon as feasible because this may affect/impact planned September 20 admission to [facility] for combined colonoscopy and hysteroscopy. 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 No Healthcare Agents on File Name Relationship Healthcare Agent Relationshi p Communication Wesley Lee [place] Spouse Health Care Agent Care Teams Pearl Peller Relationship Specialty Start Date End Date Bella Power MD [address] [place] [address] [place] [address] PCP - General Family Medicine 04/02/19 documented as of this encounter
--- OUTSIDE RECORDS SUMMARY | 2023-01-25 20:43 | External Medical Summary | Summary of Care ---
Author Name Unknown Organization [facility] Address [address] [facility] 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 heart failure with preserved ejection [...] Sign Reading Time Taken Comments Blood Pressure - - Pulse - - Temperature - - Respiratory Rate - - Oxygen Saturation - - Inhaled Oxygen Concentration - - Weight 95.3 kg (210 lb) 09/03/2022 2:55 PM EDT r eported Height 157.5 cm (5' 2") 09/03/2022 2:55 PM EDT Body Mass Index 38.41 09/03/2022 2:55 PM EDT documented in this [...] as of this encounter Progress Notes * Frandy Castanon MD - 09/03/2022 3:13 PM EDT Pt here for preop History and physical examination done Consnet obtained documented in this encounter H&P Notes * Frandy Castanon MD - 09/03/2022 3:07 PM EDT [address] [place] [address] Appt line [phone] Context: (HPI) 76 year old With multiple medial problems, including DM, inmobolity due to obesity and end stage renal disease on Dialysis3 /week Incidental finding of thickened endometrium on sonogram OB History Para Term AB Living 3 3 3 0 0 SAB IAB Ectopic Multiple Live Births 0 0 0 # Outcome Date GA Lbr Timbo/2nd Weight Sex Delivery Anes PTL Lv 3 Term 2 Term 1 Term Date Labor Sex Delivery Anesth Del Comments GA Length Weight Type Site Project Admin History: Menstrual Index: / / days. Denies h/o STDs and abnormal Paps. Her past medical/surgical histories and current medications are recorded in the electronic record. Past Surgical History: Procedure Laterality Date ARTHROPLASTY KNEE TOTAL Left Dr. Del Real CARPAL TUNNEL SURGERY Bilateral COLONOSCOPY, DIAGNOSTIC (RECTUM) 11/27/2015 normal, repeat 10 yrs/COLONOSCOPY FLEXIBLE PROXIMAL DIAGNOSTIC performed by Garrett Chang MD at ENDOSCOPY [facility] EGD, FLEXIBLE, DIAGNOSTIC 04/19/2022 esophagitis, repeat 8-12 wks / [facility] EXPLORATION OF MAXILLARY SINUS 03/17/1995 Sinus Surgery INJECTION LUMBAR/SACRAL 07/31/2015 INJECTION SPINE LUMBAR OR SACRAL performed by Quincy Prado DO at OR [facility] INJECTION LUMBAR/SACRAL 08/15/2015 INJECTION SPINE LUMBAR OR SACRAL performed by Quincy Prado DO at OR [facility] INSER MARLI CAT,W/O PUMP;5YR/OLD N/A 11/04/2019 INSERT TUNNELED CENTRAL VENOUS CATHETER AGE 6 OR OLDER performed by Ortega Montez DO at OR [facility] LIGATE/CUT OVIDUCT(S) MISCELLANEOUS ORDER ([facility] ONLY) Bilateral Heel surgery MISCELLANEOUS ORDER ([facility] ONLY) Right 3rd toe nerve decompression, Dr. Del Real Family History Problem Relation Age of Onset Heart Disorder Father also had AAA, age 85 Diabetes Father Hypertension Father Musculo-skeletal Disorder Mother has myasthenia gravis, now age 75 Hypertension Mother Neurological Disorder Brother myotonic dystrophy Neurological Disorder Sister wheelchair bound, indwelling Kirby Neurological Disorder Sister myotonic dystrophy Diabetes Brother Diabetes Sister Diabetes Sister Heart Disorder Sister History Social History Socioeconomic History Marital status: Spouse name: Wesley Number of children: 3 Years of education: Not on file Highest education level: Not on file Occupational History Occupation: at home Tobacco Use Smoking status: Former Packs/day: 0.25 Years: 50.00 Pack years: 12.50 Types: Cigarettes Quit date: 04/20/1989 Years since quittin.3 Smokeless tobacco: Never Tobacco comments: smoked since 19 years of age. Smokes a pack every 3-4 days. 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 UTERUS: Anteverted, 3.9 x 4.6 x 8.5 cm. Myometrium: Unremarkable. Peripheral calcifications. Endometrium: 16mm in thickness, which is abnormally thickened for postmenopausal state. There are cystic areas within this thickened endometrium. RIGHT OVARY: 2.0 x 2.0 x 1.4 cm, with a volume of 2.9ml Unremarkable transabdominal appearance. LEFT OVARY: 2.9 x 2.7 x 2.4 cm, with a volume of 9.7ml Anechoic lesion with through transmission 1.9 x 2.4 x 1.7 cm represents a simple cyst. MISCELLANEOUS: No significant free fluid. IMPRESSION: 1. Abnormal endometrial thickening, which could represent hyperplasia or neoplasm. 2. Left ovary simple-appearing 2.4 cm cyst. (In compliance with Act 112, the PHYSICIAN INTENSIVIST (Sensor Technician) was contacted to invoke systemgenerated communication of the patient's results.) Physical Exam: Ht 1.575 m (5' 2") | Wt 95.3 kg (210 lb) Comment: reported | BMI 38.41 kg/m | BSA 2.04 m CV: S1, S2. Regular rate and Rhythm Lungs: Clear to auscultation bilaterally. Abdomen: Soft Extremities: Soft non tender calves bilaterally. A/P: 76 year old year old S/P thickened endometrium on sonogram Pt is getting colonoscopy done so plan is to do D&C with hysteroscopy We have discussed the risk alternatives and complications of surgery including more surgery to correct complication,risk of anesthesia,infection,damage to internal organs and . We have also discussed the possibility that pt's present situation may not change. Pt is aware and wishes to proceed to surgery. Consent is signed Frandy Castanon MD 09/03/2022 3:07 PM documented in this encounter Nursing Notes * Monalisa Childers LPN - 09/03/2022 2:54 PM EDT Here for pre op documented in this encounter Plan of Treatment Upcoming Encounters Date Type Specialty Care Team Description 09/11/2022 Home Visit [facility] Sallie Lynne RN [address] [facility] [place] [address] 09/20/2022 Procedure Only Endoscopy Jenny Winston, [address] [place] [address] 10/31/2022 Home Visit [facility] Makeda Parada PA-C [address] [place] [address] Scheduled Procedures Name Priority Associated Diagnoses Date/Ti [...] as of this encounter Visit Diagnoses Diagnosis Preop testing- Primary Preoperative examination, unspecified documented in this encounter Advance Directives Documents on File Type Date Recorded Patient Wire Stitcher Expl anation Power of Electronics Assembler 12/16/2018 10:33 AM Nate r of Electronics Assembler Latest Code Status on File Code [...] the patient have Health Care Power of Electronics Assembler? No Healthcare Agents on File Name Relationship Healthcare Agent Relationshi p Communication Wesley Hassan Spouse Health Care Agent Care Teams Payment Analyst Relationship Specialty Start Date End Date Bella Power MD [address] [place] [address] [place] [address] PCP - General Family Medicine 04/02/19 documented as of this encounter
--- OUTSIDE RECORDS SUMMARY | 2023-01-25 20:43 | External Medical Summary | Summary of Care ---
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 * Telephone Encounter - RENÉ Jalloh - [...] know what they are doing. Thank you [facility] Scheduling Services documented in this encounter Plan of Treatment Upcoming Encounters Date Type Specialty Care Team Description 09/11/2022 Home Visit [facility] Sallie Lynne, RN [address] [place] [address] 09/12/2022 Office Visit Family Medicine Kurtis Siegel MD [address] [place] [address] [place] [address] 09/20/2022 Procedure Only Endoscopy Jenny Winston, [address] [place] [address] 10/31/2022 Home Visit [facility] Makeda Parada PA-C [address] [place] [address] Scheduled Procedures Name Priority Associated Diagnoses Date/Ti [...] Documents on File Type Date Recorded Patient .Net Architect Expl anation Power of Hematologist Oncologist 12/16/2018 10:33 AM Nate r of Hematologist Oncologist Latest Code Status on File Code Status [...] the patient have Health Care Power of Hematologist Oncologist? No Healthcare Agents on File Name Relationship Healthcare Agent Relationshi p Communication Wesley Hassan Spouse Health Care Agent Care Teams Facilities Manager Relationship Specialty Start Date End Date Bella Power MD [address] [place] [address] [place] [address] PCP - General Family Medicine 04/02/19 documented as of this encounter
--- OUTSIDE RECORDS SUMMARY | 2023-01-25 20:43 | External Medical Summary | Summary of Care ---
Author Name Unknown Organization [facility] Address [address] [facility] [place] [address] Phone [phone] Care Team Providers Care Inspector Soldering Name Role Phone Bella Morillo MD Primary Care Prov ider Reason for Visit * Reason Comments Medication Refill Encounter Details Date Type Department Care Team Description 09/12/2022 Refill Family Medicine [address] [phone] Bella Morillo MD [address] [place] [address] [place] [address] Allergies No known active allergiesdocumented as of this encounter (statuses as of 09/14/2022) Medications Medication Sig Dispensed Refills Start Date End Date Status ONETOUCH DELICA LANCETS 33G MISC Up to 4 times daily 100 Each 6 11/24/2014 Active Glucose Blood (ONETOUCH ULTRA BLUE) STRP Use as directed 4 times a day as needed (Diabetes). Use up to four times a day as directed 100 Strip 11 02/03/2018 Active Nebulizers (NEBULIZER COMPRESSOR) MISCIndications:PARTY PLAN SALES UNIT ADVISOR D, group B, by GOLD 2017 classification [...] daily 22 g 0 09/09/2022 Active Nystatin 182167 UNIT/GM External Powder (Nystop) apply one application externally twice daily 30 g 0 09/09/2022 Active Amoxicillin 500 MG Oral Capsule (Amoxil) take one capsule (500mg) by mouth twice daily 14 Capsule 0 09/09/2022 Active Carbidopa-Levodopa 25-100 MG Oral Tablet (Sinemet) TAKE ONE TABLET BY MOUTH THREE TIMES A DAY WITH MEALS 90 Tablet 5 09/14/2022 4 Active Carbidopa-Levodopa 25-100 MG Oral Tablet (Sinemet) TAKE ONE TABLET BY MOUTH THREE TIMES A DAY WITH MEALS 90 Tablet 5 03/05/2022 3 Discontinu ed(Refill) documented as of this encounter (statuses as of 09/14/2022) Active Problems Problem Noted Date BMI 38.0-38.9,adult [...] as of this encounter (statuses as of 09/14/2022) Resolved Problems Problem Noted Date Resolved Date [...] as of this encounter (statuses as of 09/14/2022) Immunizations Name Administration Dates Next Due COVID-19 mRNA, LNP-s, No Pre serve, 2-Dose Series ([employer]) 01/02/2021,06/21/2020,05/24/2020 Covid-19 Mrna, Lnp-s, No Pre serve, [...] Telephone Encounter - Bella Rubio MD - 09/14/2022 9:50 AM EDT Signed Prescriptions: Disp Refills Carbidopa-Levodopa 25-100 MG Oral Tablet (*90 Tab*5 Sig: TAKE ONE TABLET BY MOUTH THREE TIMES A DAY WITH MEALSAuthorizing Provider: BELLA MORILLO------ documented in this encounter Plan of Treatment Upcoming Encounters Date Type Specialty Care Team Description 09/20/2022 Procedure Only Endoscopy Jenny Winston, DO [address] [place] [address] 09/30/2022 Home Visit [facility] Sallie Lynne, RN [address] [place] [address] 10/31/2022 Home Visit [facility] Makeda Parada PA-C [address] [place] [address] Scheduled Procedures Name Priority Associated Diagnoses Date/Ti [...] 11/27/2015, 11/15, 10/21/2005 Colorectal Cancer Screening Discontinued COVID-19 Vaccine Completed 01/17/2022, 11/2021, 01/02/2021, Additional history exists Cologuard Discontinued Fecal Occult Blood Test Discontinued Sigmoidoscopy Discontinued documented as of this encounter Medical Devices Not on filedocumented as of this encounter Advance Directives Documents on File Type Date Recorded Patient Interlocker Maintainer Expl anation Power of Drum Stock Clerk 12/16/2018 10:33 AM Nate r of Drum Stock Clerk Latest Code Status on File Code Status [...] the patient have Health Care Power of Drum Stock Clerk? No Healthcare Agents on File Name Relationship Healthcare Agent Relationsnv p Communication Wesley Lee Leighaurora Spouse Health Care Agent Care Teams Inspector Soldering Relationship Specialty Start Date End Date Bella Morillo MD [address] [place] [address] [place] [address] PCP - General Family Medicine 04/02/19 documented as of this encounter
--- OUTSIDE RECORDS SUMMARY | 2023-01-25 20:43 | External Medical Summary | Summary of Care ---
Author Name Unknown Organization [facility] Address [address] [facility] [place] [address] Phone [phone] Care Team Providers Care Equestrian Trainer Name Role Phone Bella Power MD Primary Care Prov ider Reason for Visit * Reason Onset Date Comments Advice 09/11/2022 Encounter Details Date Type Department Care Team Description 09/11/2022 Telephone Gynecology/Obstetrics [facility] [address] [place] [address] Frandy Castanon MD [address] [place] [address] Advice Allergies No known active allergiesdocumented as [...] 1 Each 1 11/27/2018 Active DIURETIC TITRATION PLANIndications: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 Per Dr. Castanon 5 days is fine. * Telephone Encounter - RENÉ Corrales - 09/11/2022 10:18 AM EDT Patients Wesley calling for med advice. She is scheduled for D&C on 09/20 and is wondering if she should stop aspirin prior. Please advise and return his call. documented in this encounter Plan of Treatment Upcoming Encounters Date Type Specialty Care Team Description 09/11/2022 Home Visit [facility] Sallie Lynne, RN [address] [facility] [place] [address] 09/12/2022 Office Visit Family Medicine Kurtis Siegel MD [address] [place] [address] [place] [address] 09/20/2022 Procedure Only Endoscopy [facility] Jenny Dumas, [address] [place] [address] 10/31/2022 Home Visit [facility] Makeda Parada PA-C [address] [place] [address] Scheduled Procedures Name Priority Associated Diagnoses Date/Ti [...] Documents on File Type Date Recorded Patient Armature Winder Repairer Expl anation Power of Printed Circuit Board Pcb Draftsman 12/16/2018 10:33 AM Nate r of Printed Circuit Board Pcb Draftsman Latest Code Status on File Code Status [...] the patient have Health Care Power of Printed Circuit Board Pcb Draftsman? No Healthcare Agents on File Name Relationship Healthcare Agent Relationshi p Communication Wesley Hassan Spouse Health Care Agent Care Teams Equestrian Trainer Relationship Specialty Start Date End Date Bella Power MD [address] [place] [address] [place] [address] PCP - General Family Medicine 04/02/19 documented as of this encounter
--- OUTSIDE RECORDS SUMMARY | 2023-01-25 20:44 | External Medical Summary | Summary of Care ---
Author Name Unknown Organization [facility] Address [address] [place] [address] Phone [phone] Care Team Providers Care Staffing Administrator Name Role Phone Bella Power MD Primary Care Prov ider Reason for Visit * Reason Onset Date Comments Advice 09/02/2022 Encounter Details Date Type Department Care Team Description 09/02/2022 Telephone Nephrology, [address] [address] Services, Scheduling [address] [place] [address] Advice Allergies No known active allergiesdocumented as of this encounter (statuses as of 09/02/2022) Medications Medication Sig Dispensed Refills Start Date [...] 1 Each 1 11/27/2018 Active DIURETIC TITRATION PLANIndications: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 heart failure with preserved ejection fraction [...] as of this encounter (statuses as of 09/02/2022) Active Problems Problem Noted Date Rectal bleeding [...] as of this encounter (statuses as of 09/02/2022) Resolved Problems Problem Noted Date Resolved Date [...] as of this encounter (statuses as of 09/02/2022) Immunizations Name Administration Dates Next Due COVID-19 [...] Miscellaneous Notes * Telephone Encounter - RENÉ Daley - [...] Frandy Castanon MD [address] [place] [address] 09/11/2022 Home Visit [facility] Sallie Lynne, RN [address] [facility] [place] [address] 09/20/2022 Procedure Only Endoscopy Jenny Winston DO [address] [place] [address] 10/31/2022 Home Visit [facility] Makeda Parada PA-C [address] [place] [address] Scheduled Procedures Name Priority Associated Diagnoses Date/Ti [...] Documents on File Type Date Recorded Patient Bore Miner Operator Expl anation Power of Dressmaker Helper 12/16/2018 10:33 AM Nate r of Dressmaker Helper Latest Code Status on File Code [...] the patient have Health Care Power of Dressmaker Helper? No Healthcare Agents on File Name Relationship Healthcare Agent Relationshi p Communication Wesley Hassan Spouse Health Care Agent Care Teams Staffing Administrator Relationship Specialty Start Date End Date Bella Power MD [address] [place] [address] [place] [address] PCP - General Family Medicine 04/02/19 documented as of this encounter
--- OUTSIDE RECORDS SUMMARY | 2023-01-25 20:44 | External Medical Summary | Summary of Care ---
Author Name Unknown Organization [facility] Address [address] [facility] [place] [address] Phone [phone] Care Team Providers Care Garage Laborer Name Role Phone Bella Power MD Primary Care Prov ider Reason for Visit * Reason Onset Date Comments [facility]: Maintenance 08/30/2022 Encounter Details Date Type Department Care Team Description 08/30/2022 Telephone [facility], [facility] [place] [address] Stephanie Greenberg CRNP [address] [facility] [place] [address] [facility]: Maintenance Allergies No known [...] 1 Each 1 11/27/2018 Active DIURETIC TITRATION PLANIndications:Human Factors Ergonomist sandro heart failure with preserved ejection fraction [...] ndications:COPD, group B, by GOLD 2017 classification ([place] [...] Miscellaneous Notes * Telephone Encounter - RENÉ Barnett - 09/02/2022 10:31 AM EDT Omero Chiu, manager rn case at [facility] ([phone]) was contacted and will arrange for direct admit on 09/19, pt to arrive at [facility] at 11AM for admit. She will be on a CL diet the AM of 09/19. Spoke w/ Remedios at [facility] and she is aware of admission and procedures that are planned to be completed on 09/20. She asked that I submit iQueue for colon and Lg - Jazz Valdes - will submit iQueue for OB case. Called and spoke w/ spouse Wesley. He is aware of instructions and will await a call from OB for pre-op appt d/t. * Telephone Encounter - Bella Rubio MD - 08/30/2022 5:13 PM EDT I dont think her is capable of managing her health care needs, especially for colonoscopy prep. She would need to be admitted to a longterm for the prep, and possibly longer term. She needs case management to help coordinate admission to longterm for colon prep and longer term care needs. * Telephone Encounter - Carlos Choe RN - 08/30/2022 3:57 PM EDT Late entry: Upon further review of the chart, coordination of colon and a procedure with OBGYN are supposed to be in discussion. Original appointment kept on 09/[address] Winston @ [facility]. * Telephone Encounter - Carlos Choe RN - 08/30/2022 10:32 AM EDT Advised scheduling to move patients appointment back to the original times as I do not know if D&C is still planned for same time as colonoscopy. Dr. Rubio and Angela, can you please follow up on this patient and colonoscopy prep. We can't admit patient for prep alone, pt was at ER yesterday with rectal bleeding and they didn't admit her. Please follow up with patients . * Telephone Encounter - TRINITY Gonzalez - 08/30/2022 10:29 AM EDT I know there was some behind the scenes work on trying to get admission or a nurse to help with prep TRINITY Sanderson 08/30/2022 10:29 AM * Telephone Encounter - Rea Cervantes RN - 08/30/2022 10:17 AM EDT Jennifer from [facility] calling to let us know that patient was in their ED for GI bleed yesterday and was discharge home at 5:15 pm yesterday. No new orders, but patient is scheduled for a colonoscopy on the at [address]. She said her wanted her admitted to give her the prep. He said there is no way he can do it at home. He was told that this might not be able to be done. She also aid when she spoke to patient's , he might need some support. She is bed bound and he is the caregiver. I told her patient has social work manager with [facility] and I will reach out. Call to patient's , Wesley to see how she is doing. He said she is sleeping and doing okay.He said he is unable to do the prep for the colonoscopy. "he is not cleaning up crap all day". I told him I would reach out to the PCP for him. We will call him over the weekend to check on her. Routed to care team Rea Cervantes. RN [facility] entertainment musician [phone] * Telephone Encounter - Carlos Choe RN - 08/30/2022 10:04 AM EDT Spoke with Stephanie, message sent to Ysabel Juarez. * Telephone Encounter - Carlos Choe RN - 08/30/2022 9:39 AM EDT Spoke with , he states patient is primarily confined to the bed and wheelchair and that providing the patient with prep himself is going to be extremely difficult, he refuses to lift her as hehurt his back doing this in the past. I advised that admitting the patient to the hospital to provider prep can be difficult and we may be unable to do this but I would speak with his provider and discuss options. Message sent to Stephanie to discuss. Scheduling moved patients Colon to 09/04 @ [facility]. * Telephone Encounter - Yady Mcleod LPN - 08/30/2022 8:50 AM EDT [facility] calling. Pt seen [facility] last night for rectal bleeding. [facility] - 8.5 at [facility]. Was not admitted. Familyconcerned about the bleeding. They are concerned about the prep and being able to manage pt. Wondering if admission prior colonoscopy is possible to manage pt during prep. FYI to provider. 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 No Healthcare Agents on File Name Relationship Healthcare Agent Relationshi p Communication Wesley Hassan Spouse Health Care Agent Care Teams Garage Laborer Relationship Specialty Start Date End Date Bella Power MD [address] [place] [address] [place] [id number] PCP - General Family Medicine 04/02/19 documented as of this encounter
--- OUTSIDE RECORDS SUMMARY | 2023-01-25 20:44 | External Medical Summary | Summary of Care ---
Author Name Unknown Organization [facility] Address [address] [facility] [place] [address] Phone [phone] Care Team Providers Care Space Systems Operations Manager Name Role Phone Bella Power MD Primary Care Prov ider Reason for Visit * Reason Onset Date Comments Advice 08/02/2022 Bleeding Encounter Details Date Type Department Care Team Description 08/02/2022 Telephone Family Medicine [address] [address] Bella Power MD [address] [place], [place] [address] [address] Advice (Bleeding) Allergies No known active allergiesdocumented as of this encounter (statuses as of 09/02/2022) Medications Medication Sig Dispensed Refills Start Date End Date Status ONETOUCH DELICA LANCETS 33G MISC Up to 4 times daily 100 Each 6 5 Active Glucose Blood (ONETOUCH ULTRA BLUE) STRP Use as directed 4 times a day as needed (Diabetes). Use up to four times a day as directed 100 Strip 11 8 Active Nebulizers (NEBULIZER COMPRESSOR) MISCIndications:CO PD, group B, by GOLD 2017 classification (HCC) Inhale via nebulizer. Use as directed. 1 Each 1 9 Active DIURETIC TITRATION PLANIndications:Ch ronic heart failure with preserved ejection fraction (HCC) If no improvement on day 3, contact heart failure managing provider. 1 Each 0 9 Active Melatonin 10 MG Tablet Take 1 Tablet by mouth every night at bedtime. 0 Active DIURETIC TITRATION PLAN If no improvement on day 3, contact heart failure managing provider. 0 Active acetaminophen (TYLENOL) 325 MG Tablet Take 2 Tabs by mouth every 6 hours as needed for Pain. 30 Tab 0 0 Active Cholecalciferol (VITAMIN D3) 125 MCG (5000 UT) Tablet Take 1 Capsule by mouth in the morning. 0 0 Active EPINEPHrine, Anaphylaxis, 1 MG/ML SOLN Inject 0.3 mL as directed as needed for Anaphylaxis (severe allergic reaction). 0.3 mL 0 0 Active zoster vac recomb adjuvanted (SHINGRIX) 50 MCG/0.5ML injectionIndicatio ns:Need for vaccination for zoster Inject 0.5 mL into a large muscle now and repeat dose in 60 to 180 days 1 Each 1 0 Active Aspirin 81 MG Oral Tablet Delayed ReleaseIndications :ASCVD (arteriosclerotic cardiovascular disease) Take 2 Tablets by mouth in the morning. 30 Tab 5 0 Active Coloplast PasteIndications:H emorrhoids, external without complications Use to hemorrhoids 1-2 times per day 57 g 3 0 Active Calcium Acetate (Phos Binder) 667 MG Oral Capsule (PHOSLO) Take 1 Cap by mouth three times a day with meals. 60 Cap 11 0 Active Meclizine HCl 12.5 MG Oral Tablet (ANTIVERT) Take 1 Tablet by mouth 3 times a day as needed. 0 Active Breo Ellipta 200-25 MCG/INH Inhalation Aerosol Powder Breath Activated (fluticasone furoate-vilanterol )Indications:COPD, group B, by GOLD 2017 classification ([facility]) Inhale by mouth 1 Puff in the morning. 60 Each 0 2 Active Isosorbide Mononitrate ER 30 MG Oral Tablet Extended Release 24 Hour (Imdur) TAKE ONE TABLET BY MOUTH DAILY 90 Tablet 3 2 023 Active Hydrocortisone (Perianal) 2.5 % External CreamIndications:H emorrhoids, external without complications ADMINISTER INTO RECTUM OR APPLY TO EXTERNAL HEMORRHOIDS ONCE DAILY 28 g 2 2 023 Active Carbidopa-Levodopa 25-100 MG Oral Tablet (Sinemet) TAKE ONE TABLET BY MOUTH THREE TIMES A DAY WITH MEALS 90 Tablet 5 2 023 Active Pantoprazole Sodium 20 MG Oral Tablet Delayed Release (Protonix) Take 1 Tablet by mouth in the morning and 1 Tablet in the evening. 180 Tablet 1 3 Active Lidocaine-Prilocai ne 2.5-2.5 % External Cream (Emla) APPLY SMALL AMOUNT TO ACCESS SITE (AVF) 1 TO 2 HOURS BEFORE DIALYSIS. COVER WITH OCCLUSIVE DRESSING (SARAN WRAP) 0 3 Active Auryxia 1 GM 210 MG(Fe) Oral Tablet TAKE 1 TABLET BY MOUTH THREE TIMES A DAY WITH MEALS. SWALLOW WHOLE, DO NOT CHEW OR CRUSH MEDICATION 0 3 Active Nanci-Samuel Oral Tablet Take 1 Tablet by mouth in the morning. 0 3 Active Sertraline HCl 100 MG Oral Tablet (Zoloft) TAKE ONE TABLET BY MOUTH IN THE MORNING 30 Tablet 5 2 023 Discontinued(Re fill) Atorvastatin Calcium 80 MG Oral Tablet (Lipitor) TAKE 1 TABLET BY MOUTH DAILY. 90 Tablet 3 2 023 Discontinued(Re fill) Levothyroxine Sodium 125 MCG Oral Tablet (Levoxyl) TAKE 1 TABLET BY MOUTH DAILY AT LEAST 30 MINUTES PRIOR TO FIRST MEAL OF THE DAY OR OTHER MEDICATIONS. 90 Tablet 3 2 023 Discontinued(Re fill) Pregabalin 100 MG Oral Capsule (Lyrica)Indication s:Primary parkinsonism (HCC) Take 1 capsule twice daily. May take 1 extra capsule after dialysis. 90 Capsule 2 3 023 Discontinued(Re fill) Cefuroxime Axetil 250 MG Oral Tablet (Ceftin) 250 mg orally daily 5 Tablet 0 3 023 Discontinued Pregabalin 100 MG Oral Capsule (Lyrica)Indication s:Degenerative disease of nervous system, unspecified (HCC) TAKE 1 CAPSULE BY MOUTH TWICE DAILY TAKE AN EXTRA CAPSULE AFTER DIALYSIS 90 Capsule 0 3 023 Discontinued documented as of this encounter (statuses as [...] Telephone Encounter - RENÉ Barnett - 09/02/2022 11:11 AM EDT See TE dated 08/30. * Telephone Encounter - Marysol Hart PA-C - 08/29/2022 12:56 PM EDT Patient seen at dialysis center today hgb now at 7.6 and patient is symptomatic (hgb was 8.9 last wk) Now with some additional giI upset and reported multiple pressure wounds with drainage. Most recent symptoms and ongoing concerns were discussed with by nursing staff and he is electing to take patient to ER at [facility] - nursing staff did call and provide report. Colonoscopy and D&C could be completed if patient is admitted with this visit. Marysol Hart PA-C * Telephone Encounter - RENÉ Hayes - 08/22/2022 2:03 PM EDT Anymore information on this pt. I would like to get her information to the OR, if we are still planning on doing her on 09/20. * Addendum Note - Andre Steward MD - 08/15/2022 9:53 AM EDTAddended by: ANDRE STEWARD on: 08/15/2022 09:53 AM Modules accepted: Orders * Telephone Encounter - Andre Steward MD - 08/15/2022 8:44 AM EDT Getting PT/INR and CBC today on dialysis and will have them run in [employer] system today No need for pt to make extra trip/stop for blood draw Noted after I placed these orders she had studies on 08/10; will repeat * Telephone Encounter - RENÉ Barnett - 08/14/2022 3:59 PM EDT Dates reserved for 09/20, pt has not been notified. This is pending admission. * Telephone Encounter - RENÉ Hayes - 08/13/2022 8:33 AM EDT I spoke to Renan. Awaiting call back for date. * Telephone Encounter - RENÉ Hayes - 08/09/2022 11:02 AM EDT Received surgery paperwork for this pt from Dr Castanon. Would someone from Gastro scheduling contact me so we can coordinate a date for this pt. Dr Castanon does surgeries at [facility] on Fridays. Please contact me at [phone]. * Telephone Encounter - Monalisa Childers LPN - 08/07/2022 12:[address]T [address] have Dr. Castanon review to fill out paperwork * Telephone Encounter - RENÉ Hayes - 08/07/2022 11:56 AM EDT No paperwork on this pt. * Telephone Encounter - Monalisa Childers LPN - 08/07/2022 11:19 AM EDT Jazz do you have paperwork on this patient? * Telephone Encounter - Debora Barker RN - 08/07/2022 11:13 AM EDT GI and OB will need to try to work together to coordinate a date these can be done at [facility]( must bedone at the hospital , due to needing pino Lift) Pt needs called to get Labs * Telephone Encounter - TRINITY Gonzalez - 08/07/2022 10:54 AM EDT We are not able to admit patients for procedure In the past, pcp were able to admit for observations but exam had to be added on and completed in under the 23 hour period With the limited endo time I am not sure if this is an option TRINITY Sanderson 08/07/2022 10:55 AM * Telephone Encounter - Bella Rubio MD - 08/06/2022 6:54 PM EDT Chart reviewed. Patient reporting rectal bleeding. She also has ESRD and is medically frail; needs to be done in the hospital. Also has endometrial thickening and needs D&C. Forward to GI and Vest Backer to see if we can coordinate hospitalization for colonoscopy and D&C. Nursing: Recommend CBC and PT/INR now too please. * Telephone Encounter - Debora Barker RN - 08/06/2022 7:32 AM EDT Please see message below, and also review SECURITY SYSTEM TECHNICIAN note of 07/24/22. Pt saw GI about this 04/15/22 please review note And advise on Colonoscopy * Telephone Encounter - RENÉ Barnett - 08/05/2022 2:57 PM EDT Pino lift needed, if colonoscopy is ordered pt will need to have done in a hospital setting. * Telephone Encounter - RENÉ Francis - 08/05/2022 1:34 PM EDT Patient's calling in to check on the status of previous message. Patient Called after 48 hour timeframe and escalation e-mail was sent to clinic leadership * Telephone Encounter - RENÉ Foreman - 08/02/2022 3:47 PM EDT Pt spouse, Wesley, calling to speak with the Dr or nurse about the pt still having bleeding that is red. Pt spouse would like to know if pt should proceed with the colonoscopy. Please call back/\\. documented in this encounter Plan of Treatment Upcoming Encounters Date Type Specialty Care Team Description 09/11/2022 Home Visit [facility] Sallie Lynne, RN [address] [place] [address] 09/20/2022 Procedure Only Endoscopy Jenny Winston, DO [address] [place] [address] 10/31/2022 Home Visit [facility] Makeda Parada PA-C [address] [place] [address] Scheduled Procedures Name Priority Associated Diagnoses Date/Ti [...] Not on filedocumented as of this encounter Results * PT INR (08/15/2022 9:54 AM EDT) Prothrombin Time 12.2 11.6 - 15.2 seconds 08/15/2022 10:04 PM EDT [facility] INR 0.9 0.8 - 1.2 08/15/2022 10:04 PM EDT LAB[facility]ATORY [facility] Blood Venous blood specimen / Unknown Venipuncture / Unknown 08/15/2022 9:54 AM EDT 08/15/2022 9:54 AM EDT Narrative LABORATORY [facility] - 08/15/2022 10:04 PM EDT Warfarin Therapy INR: 2.0-3.0 conventional anticoagulation INR: 2.5-3.5 high intensity anticoagulation Andre Steward MD LAB BLOOD ORDERAB LES LABORATORY [facility] [address] [place] [address] * (ABNORMAL) CBC (08/15/2022 9:54 AM EDT) WBC 9.69 4.00 - 10.80 K/uL 08/15/2022 11:42 PM EDT [facility] RBC 2.84 3.85 - 5.15 M/uL 08/15/2022 11:42 PM EDT [facility] HGB 9.3(L) 12.0 - 15.3 g/dL 08/15/2022 11:42 PM EDT [facility] HCT 31.5(L) 36.0 - 45.2 % 08/15/2022 11:42 PM EDT [facility] MCV 110.9 81.5 - 97.5 fL 08/15/2022 11:42 PM EDT [facility] MCH 32.7 27.0 - 34.0 pg 08/15/2022 11:42 PM EDT [facility] MCHC 29.5 32.0 - 36.0 g/dL 08/15/2022 11:42 PM EDT [facility] RDW 23.1 11.5 - 15.5 % 08/15/2022 11:42 PM EDT [facility] PLT 218 140 - 400 K/uL 08/15/2022 11:42 PM EDT [facility] MPV 10.8 6.6 - 11.1 fL 08/15/2022 11:42 PM EDT [facility] nRBCs 0 <=0 /100 WBCs 08/15/2022 11:42 PM EDT [facility]ATORY [facility] Blood Venous blood specimen / Unknown Venipuncture / Unknown 08/15/2022 9:54 AM EDT 08/15/2022 9:54 AM EDT Andre Steward MD LAB BLOOD ORDERAB LES [facility] [address] [place] [address] * (ABNORMAL) PT INR (08/10/2022 1:48 PM EDT) Prothrombin Time 11.5(L) 11.6 - 15.2 seconds 08/10/2022 2:43 PM EDT [facility] INR 0.8 0.8 - 1.2 08/10/2022 2:43 PM EDT [facility] Blood Venous blood specimen / Unknown Venipuncture / Unknown 08/10/2022 1:48 PM EDT 08/10/2022 1:48 PM EDT Narrative [facility] [place] [facility] - 08/10/2022 2:43 PM EDT Warfarin Therapy INR: 2.0-3.0 conventional anticoagulation INR: 2.5-3.5 high intensity anticoagulation Bella Rubio MD LAB BLOOD ORDERABLES Performing Organization Address City/[facility]/ZIP Co de Phone Number LAB[facility]AT[facility] [place] [address] documented in this encounter Visit Diagnoses Diagnosis Rectal bleeding- Primary Hemorrhage of rectum and anus documented in this encounter Advance Directives Documents on File Type Date Recorded Patient 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 No Healthcare Agents on File Name Relationship Healthcare Agent Relationshi p Communication Wesley Lee Sonya Spouse Health Care Agent Care Teams Space Systems Operations Manager Relationship Specialty Start Date End Date Bella Power MD [address] [place] [address] [place] [address] PCP - General Family Medicine 04/02/19 documented as of this encounter
--- OUTSIDE RECORDS SUMMARY | 2023-01-25 20:44 | External Medical Summary | Summary of Care ---
Author Name Unknown Organization [facility] Address [address] [place] [address] Phone [phone] Care Team Providers Care Clinical Data Research Name Role Phone Bella Power MD Primary Care Prov ider Reason for Visit * Reason Onset Date Comments Advice 09/02/2022 Encounter Details Date Type Department Care Team Description 09/02/2022 Telephone Nephrology, [address] [address] Services, Scheduling [address] [place] [address] Advice Allergies No known active allergiesdocumented as [...] 1 Each 1 11/27/2018 Active DIURETIC TITRATION PLANIndications:Maintenance Aide sandro heart failure with preserved ejection fraction [...] ndications:COPD, group B, by GOLD 2017 classification ([facility]) Inhale by mouth 1 Puff in the [...] Visit [facility] Sallie Lynne RN [address] [place] [address] 09/20/2022 Procedure Only Endoscopy Jenny Winston, DO [address] [place] [address] 10/31/2022 Home Visit [facility] Makeda Orona PA-C [address] [place] [address] Scheduled Procedures Name Priority Associated Diagnoses Date/Ti [...] Documents on File Type Date Recorded Patient 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 No Healthcare Agents on File Name Relationship Healthcare Agent Relationshi p Communication Wesley Hassan Spouse Health Care Agent Care Teams Clinical Data Research Relationship Specialty Start Date End Date Bella Power MD [address] [place] [address] [place] [address] PCP - General Family Medicine 04/02/19 documented as of this encounter
--- OUTSIDE RECORDS SUMMARY | 2023-01-25 20:44 | External Medical Summary | Summary of Care ---
Author Name Unknown Organization [facility] Address [address] [facility] [place] [address] Phone [phone] Care Team Providers Care Senior Scrum Master Name Role Phone Bella Power MD Primary Care Prov ider Reason for Visit * Reason Onset Date Comments [facility]: Maintenance 08/30/2022 Encounter Details Date Type Department Care Team Description 08/30/2022 Telephone [facility], [facility] [place] [address] Stephanie Greenberg CRNP [address] [facility] [place] [address] [facility]: Maintenance Allergies No known [...] 1 Each 1 11/27/2018 Active DIURETIC TITRATION PLANIndications:Athletic Turf Worker sandro heart failure with preserved ejection [...] B, by GOLD 2017 classification ([facility]) Inhale by mouth 1 Puff in the [...] would need to be admitted to a skilled nursing for the prep, and possibly longer term. She needs case management to help coordinate admission to skilled nursing for colon prep and longer term care needs. * Telephone Encounter - Carlos Choe RN - 08/30/2022 3:57 PM EDT Late entry: Upon further review of the chart, coordination of colon and a procedure with OBGYN are supposed to be in discussion. Original appointment kept on 09/[address] Winston @ [facility]. * Telephone Encounter - Carlos Choe RN [...] - 08/30/2022 10:17 AM EDT Jennifer from [facility] calling to let us know that patient was in their ED for GI bleed yesterday and was discharge home at 5:15 pm yesterday. No new orders, but patient is scheduled for a colonoscopy on the at [facility]. She said her wanted her admitted to [...] caregiver. I told her patient has social worker health services with [facility] and I will reach out. Call to [...] her. Routed to care team Rea Cervantes. STEFF[employer] [facility] superintendent plant [phone] * Telephone Encounter - Carlos Choe RN [...] Scheduling moved patients Colon to 09/04 @ [facility]. * Telephone Encounter - Yady Mcleod LPN - 08/30/2022 8:50 AM EDT [place] calling. Pt seen at CT last night for rectal bleeding. HGB - 8.[address] Was not admitted. Familyconcerned about the bleeding. They are concerned about the prep and being able to manage pt. Wondering if admission prior colonoscopy is possible to manage pt during prep. FYI to provider. 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 No Healthcare Agents on File Name Relationship Healthcare Agent Relationshi p Communication Wesley Hassan Spouse Health Care Agent Care Teams Senior Scrum Master Relationship Specialty Start Date End Date Bella Power MD [address] [place] [address] [place] [address] PCP - General Family Medicine 04/02/19 documented as of this encounter
--- OUTSIDE RECORDS SUMMARY | 2023-01-25 20:45 | External Medical Summary | Summary of Care ---
Author Name Unknown Organization [facility] Address [address] [facility] [place] [address] Phone [phone] Care Team Providers Care Printed Circuit Board Designer Name Role Phone Bella Power MD Primary Care Prov ider Reason for Visit * Reason Onset Date Comments [facility]: Maintenance 08/30/2022 Encounter Details Date Type Department Care Team Description 08/30/2022 Telephone [facility], [facility] [place] [address] Stephanie Greenberg CRNP [address] [facility] [place] [address] [facility]: Maintenance Allergies No known active allergiesdocumented as of this encounter (statuses as of 08/30/2022) Medications Medication Sig Dispensed Refills Start Date [...] 1 Each 1 11/27/2018 Active DIURETIC TITRATION PLANIndications:Hot Repairman sandro heart failure with preserved ejection fraction [...] as of this encounter (statuses as of 08/30/2022) Active Problems Problem Noted Date Rectal bleeding [...] as of this encounter (statuses as of 08/30/2022) Resolved Problems Problem Noted Date Resolved Date [...] as of this encounter (statuses as of 08/30/2022) Immunizations Name Administration Dates Next Due COVID-19 [...] encounter Miscellaneous Notes * Telephone Encounter - Rea Cervantes RN - 08/30/2022 10:17 AM EDT Jennifer from [facility] calling to let us know that patient was in their ED for GI bleed yesterday and was discharge home at 5:15 pm yesterday. No new orders, but patient is scheduled for a colonoscopy on the at [facility]. She said her wanted her admitted to [...] caregiver. I told her patient has social media manager with [facility] and I will reach out. Call to [...] Routed to care team Rea Cervantes. STEFFEN [facility] line servicer [phone] * Telephone Encounter - Carlos Choe RN [...] Scheduling moved patients Colon to 09/04 @ [facility]. * Telephone Encounter - Yady Mcleod LPN - 08/30/2022 8:50 AM EDT [place] calling. Pt seen at [facility] last night for rectal bleeding. HGB - 8.5 at [facility]. Was not admitted. Familyconcerned about the bleeding. They are concerned about the prep and being able to manage pt. Wondering if admission prior colonoscopy is possible to manage pt during prep. FYI to provider. documented in this encounter Plan of Treatment Upcoming Encounters Date Type Specialty Care Team Description 08/31/2022 Scheduled Telephone [facility], Nurse [facility] [address] [place] [address] 09/01/2022 Scheduled Telephone [facility], Nurse Jose [facility] [address] [place] [address] 09/04/2022 Procedure Only Endoscopy Garrett Chang MD [address] [place] [address] 09/11/2022 Home Visit [facility] Sallie Lynne, RN [address] [place] [address] 10/31/2022 Home Visit [facility] Makeda Parada PA-C [address] [place] [address] Scheduled Procedures Name Priority Associated Diagnoses Date/Ti [...] Documents on File Type Date Recorded Patient German Teacher Expl anation Power of Medical Oncologist 12/16/2018 10:33 AM Nate r of Medical Oncologist Latest Code Status on File Code [...] the patient have Health Care Power of Medical Oncologist? No Healthcare Agents on File Name Relationship Healthcare Agent Relationshi p Communication Wesley Hassan Spouse Health Care Agent Care Teams Printed Circuit Board Designer Relationship Specialty Start Date End Date Bella Power MD [address] [place] [address] [place] [address] PCP - General Family Medicine 04/02/19 documented as of this encounter
--- OUTSIDE RECORDS SUMMARY | 2023-01-25 20:45 | External Medical Summary | Summary of Care ---
Author Name Unknown Organization [facility] Address [address] [facility] [place] [address] Phone [phone] Care Team Providers Care Loading Unit Tool Setter Name Role Phone Bella Power MD Primary Care Prov ider Reason for Visit * Reason Onset Date Comments [facility]: Maintenance 08/31/2022 Encounter Details Date Type Department Care Team Description 08/31/2022 Scheduled Telephone [facility], [facility] [address] [facility] [place] [address] [facility], Nurse [facility] [address] [place] [address] Allergies No known active allergiesdocumented as of this encounter (statuses as of 08/31/2022) Medications Medication Sig Dispensed Refills Start Date [...] 1 Each 1 11/27/2018 Active DIURETIC TITRATION PLANIndications:Plastic Fixture Builder sandro heart failure with preserved ejection [...] as of this encounter (statuses as of 08/31/2022) Active Problems Problem Noted Date Rectal bleeding [...] as of this encounter (statuses as of 08/31/2022) Resolved Problems Problem Noted Date Resolved Date [...] as of this encounter (statuses as of 08/31/2022) Immunizations Name Administration Dates Next Due COVID-19 [...] encounter Miscellaneous Notes * Telephone Encounter - Helen Sam RN - 08/31/2022 9:33 AM EDT Pt scheduled for Phone call to f/u on ED visit. Chart reviewed. Pt seen at [facility] ED 08/29 for rectal bleeding. She is scheduled for colonoscopyand possible D&C 09/20. Spouse unable to complete bowel prep, Care team working on plan for same. Call placed to spouse. He states she is currently at dialysis. He plans to speak to pharmacist re: iron supplement that she is supposed to be taking. States he is concerned that may be the cause of the bleeding. Advised him to f/u with pharmacist and provider re: concerns. Scheduled for repeat phone call tomorrow. documented in this encounter Plan of Treatment Upcoming Encounters Date Type Specialty Care Team Description 09/01/2022 Scheduled Telephone [facility], Nurse [facility] [address] [facility] [place] [address] 09/11/2022 Home Visit [facility] Sallie Lynne RN [address] [facility] [place] [address] 09/20/2022 Procedure Only Endoscopy Jenny Winston, DO [address] [place] [address] 10/31/2022 Home Visit [facility] [place], Makeda Orona PA-C [address] [place] [address] Scheduled Procedures Name Priority Associated Diagnoses Date/Ti [...] Documents on File Type Date Recorded Patient Accounting Clerks Supervisor Expl anation Power of Chemical Sales Representative 12/16/2018 10:33 AM Nate r of Chemical Sales Representative Latest Code Status on File [...] patient have Health Care Power of Chemical Sales Representative? No Healthcare Agents on File Name Relationship Healthcare Agent Relationshi p Communication Wesley Hassan Spouse Health Care Agent Care Teams Loading Unit Tool Setter Relationship Specialty Start Date End Date Bella Power MD [address] [place] [address] [place] [address] PCP - General Family Medicine 04/02/19 documented as of this encounter
--- OUTSIDE RECORDS SUMMARY | 2023-01-25 20:45 | External Medical Summary | Summary of Care ---
Author Name Unknown Organization [facility] Address [address] [facility] [place] [address] Phone [phone] Care Team Providers Care Grade Checker Name Role Phone Bella Power MD Primary Care Prov ider Reason for Visit * Reason Onset Date Comments [facility]: Maintenance 08/30/2022 Encounter Details Date Type Department Care Team Description 08/30/2022 Telephone [facility]astroenterology, [facility] [address] [facility] [place] [address] Stephanie Greenberg CRNP [address] [facility] [place] [address] [facility]: Maintenance Allergies No known [...] Each 1 11/27/2018 Active DIURETIC TITRATION PLANIndications:Plastic Roller sandro heart failure with preserved ejection fraction [...] ndications:COPD, group B, by GOLD 2017 classification ([facility]) Inhale by mouth 1 [...] of the chart, coordination of colon and hysterectomy supposed to be in discussion between providers with [facility]. Original appointment kept on 09/[address] Winston @ [facility]. * Telephone Encounter - Carlos Choe [...] - 08/30/2022 10:17 AM EDT Jennifer from [facility] calling to let us know that patient was in their ED for GI bleed yesterday and was discharge home at 5:15 pm yesterday. No new orders, but patient is scheduled for a colonoscopy on the at [facility]. She said her wanted her admitted to give her the prep. He said there is no way he can do it at home. He was told that this might not be able to be done. She also aid when she spoke to patient's , he might need some support. She is bed bound and he is the caregiver. I told her patient has secondary social studies teacher with [facility] [facility] and I will reach out. Call to patient's , Weslye to see how she is doing. He said she is sleeping and doing okay.He said he is unable to do the prep for the colonoscopy. "he is not cleaning up crap all day". I told him I would reach out to the PCP for him. We will call him over the weekend to check on her. Routed to care team Rea Cervantes. RN [facility] kiln packer [phone] * Telephone Encounter - Carlos Choe RN [...] Scheduling moved patients Colon to 09/04 @ [facility]. * Telephone Encounter - Yady Mcleod LPN - 08/30/2022 8:50 AM EDT [place] calling. Pt seen at [place] last night for rectal bleeding. HGB - 8.5 at [place]. Was not admitted. Familyconcerned about the bleeding. They are concerned about the prep and being able to manage pt. Wondering if admission prior colonoscopy is possible to manage pt during prep. FYI to provider. documented in this encounter Plan of Treatment Upcoming Encounters Date Type Specialty Care Team Description 08/31/2022 Scheduled Telephone [facility], Nurse [facility] [address] [place] [address] 09/01/2022 Scheduled Telephone [facility], Nurse [facility] [address] [place] [address] 09/11/2022 Home Visit [facility] Sallie Lynne, [place] [address] [facility] [address] 09/20/2022 Procedure Only Endoscopy Jenny Winston, DO [address] [place] [address] 10/31/2022 Home Visit [facility] Makeda Parada PA-C [address] [place] [address] Scheduled Procedures Name Priority Associated Diagnoses Date/Ti [...] Documents on File Type Date Recorded Patient Print Shop Stenographer Expl anation Power of Ship Loader 12/16/2018 10:33 AM Nate r of Ship Loader Latest Code Status on File Code [...] the patient have Health Care Power of Ship Loader? No Healthcare Agents on File Name Relationship Healthcare Agent Relationshi p Communication Wesley Hassan Spouse Health Care Agent Care Teams Grade Checker Relationship Specialty Start Date End Date Bella Power MD [address] [place] [address] [place] [address] PCP - General Family Medicine 04/02/19 documented as of this encounter
--- OUTSIDE RECORDS SUMMARY | 2023-01-25 20:45 | External Medical Summary | Summary of Care ---
Author Name Unknown Organization [facility] Address [address] [facility] [place] [address] Phone [phone] Care Team Providers Care Abstracter Name Role Phone Bella Power MD Primary Care Prov ider Reason for Visit * Reason Onset Date Comments [facility]: Maintenance 09/01/2022 Encounter Details Date Type Department Care Team Description 09/01/2022 Scheduled Telephone [facility], [facility] [address] [facility] [place] [address] [facility], Nurse [facility] [address] [facility] [place] [place] [address] Allergies No known active allergiesdocumented as of this encounter (statuses as of 09/01/2022) Medications Medication Sig Dispensed Refills Start Date [...] Each 1 11/27/2018 Active DIURETIC TITRATION PLANIndications:Electrical Engineering Intern sandro heart failure with preserved ejection fraction [...] group B, by GOLD 2017 classification ([facility]) Inhale by mouth 1 [...] as of this encounter (statuses as of 09/01/2022) Active Problems Problem Noted Date Rectal bleeding [...] as of this encounter (statuses as of 09/01/2022) Resolved Problems Problem Noted Date Resolved Date [...] as of this encounter (statuses as of 09/01/2022) Immunizations Name Administration Dates Next Due COVID-19 [...] Telephone Encounter - Helen Sam RN - 09/01/2022 11:13 AM EDT Pt scheduled for phone call to f/u on ED visit. Call placed to pt. Spoke to spouse, he states she is currently sleeping, denies any current issues or concerns. documented in this encounter Plan of Treatment Upcoming Encounters Date Type Specialty Care Team Description 09/11/2022 Home Visit [facility] Sallie Lynne RN [address] [place] [address] 09/20/2022 Procedure Only Endoscopy Jenny Winston, [address] [place] [address] 10/31/2022 Home Visit [facility] Makeda Parada PA-C [address] [place] [address] Scheduled Procedures Name Priority Associated Diagnoses Date/Ti [...] Documents on File Type Date Recorded Patient Services Host Expl anation Power of Copping Machine Operator 12/16/2018 10:33 AM Nate r of Copping Machine Operator Latest Code Status on File [...] the patient have Health Care Power of Copping Machine Operator? No Healthcare Agents on File Name Relationship Healthcare Agent Relationshi p Communication Wesley Hassan Spouse Health Care Agent Care Teams Abstracter Relationship Specialty Start Date End Date Bella Power MD [address] [place] [address] [place] [address] PCP - General Family Medicine 04/02/19 documented as of this encounter
--- OUTSIDE RECORDS SUMMARY | 2023-01-25 20:45 | External Medical Summary | Summary of Care ---
Author Name Unknown Organization [facility] Address [address] [facility] [place] [address] Phone [phone] Care Team Providers Care Restorative Rehab Aide Name Role Phone Bella Power MD Primary Care Prov ider Encounter Details Date Type Department Care Team Description 08/30/2022 Telephone Gastroenterology, [facility] [address] [place] [address] Stephanie Greenberg CRNP [address] [facility] [place] [address] Allergies No known active allergiesdocumented as of [...] 1 Each 1 11/27/2018 Active DIURETIC TITRATION PLANIndications:Resident Surgeon sandro heart failure with preserved ejection fraction [...] ndications:COPD, group B, by GOLD 2017 classification ([facility]) Inhale by mouth 1 Puff [...] Scheduling moved patients Colon to 09/[address] [facility]. * Telephone Encounter - Yady Mcleod LPN - 08/30/2022 8:50 AM EDT [place] calling. Pt seen [place] last night for rectal bleeding. HGB - 8.5 at [place]. Was not admitted. Familyconcerned about the bleeding. They are concerned about the prep and being able to manage pt. Wondering if admission prior colonoscopy is possible to manage pt during prep. FYI to provider. documented in this encounter Plan of Treatment Upcoming Encounters Date Type Specialty Care Team Description 09/04/2022 Procedure Only Endoscopy Garrett Chang MD [address] [place] [address] 09/11/2022 Home Visit [facility] Sallie Lynne, RN [address] [place] [address] 10/31/2022 Home Visit [facility] Makeda Parada PA-C [address] [place] [address] Scheduled Procedures Name Priority Associated Diagnoses Date/Ti [...] Documents on File Type Date Recorded Patient Rules Examiner Expl anation Power of Hearing Screener 12/16/2018 10:33 AM Nate r of Hearing Screener Latest Code Status on File Code [...] the patient have Health Care Power of Hearing Screener? No Healthcare Agents on File Name Relationship Healthcare Agent Relationshi p Communication Wesley Hassan Spouse Health Care Agent Care Teams Restorative Rehab Aide Relationship Specialty Start Date End Date Bella Power MD [address] [place] [address] [place] [address] PCP - General Family Medicine 04/02/19 documented as of this encounter
--- OUTSIDE RECORDS SUMMARY | 2023-01-25 20:45 | External Medical Summary | Summary of Care ---
Author Name Unknown Organization [facility] Address [address] [facility] [place] [address] Phone [phone] Care Team Providers Care Electronic Equipment Set Up Operator Name Role Phone Bella Power MD Primary Care Prov ider Reason for Visit * Reason Onset Date Comments [facility]: Maintenance 08/30/2022 Encounter Details Date Type Department Care Team Description 08/30/2022 Telephone [facility]astroenterology, [facility] [address] [facility] [place] [address] Stephanie Greenberg CRNP [address] [facility] [place] [address] [facility]: Maintenance Allergies No known [...] 1 Each 1 11/27/2018 Active DIURETIC TITRATION PLANIndications:Trust Administrative Assistant sandro heart failure with preserved ejection fraction [...] - 08/30/2022 10:17 AM EDT Jennifer from [facility] calling to let us know that patient was in their ED for GI bleed yesterday and was discharge home at 5:15 pm yesterday. No new orders, but patient is scheduled for a colonoscopy on the at [facility]. She said her wanted her admitted [...] the caregiver. I told her patient has psychosocial rehabilitation counselor with [facility] and I will reach out. Call [...] Routed to care team Rea Cervantes. RN [facility] inclusion special education teacher [phone] * Telephone Encounter - Carlos Choe RN [...] moved patients Colon to 09/04 @ [facility]. * Telephone Encounter - Yady Mcleod LPN - 08/30/2022 8:50 AM EDT [place] calling. Pt seen [place] last night for rectal bleeding. HGB - 8.5 at [place]. Was not admitted. Familyconcerned about the bleeding. They are concerned about the prep and being able to manage pt. Wondering if admission prior colonoscopy is possible to manage pt during prep. FYI to provider. documented in this encounter Plan of Treatment Upcoming Encounters Date Type Specialty Care Team Description 08/31/2022 Scheduled Telephone [facility], Nurse [facility] [address] [place] [address] 09/01/2022 Scheduled Telephone [facility], Nurse [facility] [address] [place] [address] 09/11/2022 Home Visit [facility] Sallie Lynne, RN [address] [place] [address] 10/31/2022 Home Visit [facility] Makeda Parada PA-C [address] [place] [address] 01/30/2023 Procedure Only Endoscopy Guadalupe Hernandez DO [address] [place] [address] Scheduled Procedures Name Priority Associated Diagnoses Date/Ti [...] Documents on File Type Date Recorded Patient Director Of Materials Management Expl anation Power of Hydrator 12/16/2018 10:33 AM Nate r of Hydrator Latest Code Status on File Code Status [...] the patient have Health Care Power of Hydrator? No Healthcare Agents on File Name Relationship Healthcare Agent Relationshi p Communication Wesley Hassan Spouse Health Care Agent Care Teams Electronic Equipment Set Up Operator Relationship Specialty Start Date End Date Bella Power MD [address] [place] [address] [place] [address] PCP - General Family Medicine 04/02/19 documented as of this encounter
--- OUTSIDE RECORDS SUMMARY | 2023-01-25 20:45 | External Medical Summary | Summary of Care ---
Author Name Unknown Organization [facility] Address [address] [facility] [place] [address] Phone [phone] Care Team Providers Care Water/Wastewater Project Manager Name Role Phone Bella Power MD Primary Care Prov ider Reason for Visit * Reason Onset Date Comments [facility]: Maintenance 08/30/2022 Encounter Details Date Type Department Care Team Description 08/30/2022 Telephone [facility]astroenterology, [facility] [place] [address] Stephanie Greenberg CRNP 132 [facility] [place] [address] [facility]: Maintenance Allergies No known [...] 1 Each 1 11/27/2018 Active DIURETIC TITRATION PLANIndications:Felt Finisher sandro heart failure with preserved ejection fraction [...] ndications:COPD, group B, by GOLD 2017 classification ([facility]) Inhale by mouth 1 [...] would need to be admitted to a snf for the prep, and possibly longer term. She needs case management to help coordinate admission to snf for colon prep and longer term care needs. * Telephone Encounter - Carlos Choe RN - 08/30/2022 3:57 PM EDT Late entry: Upon further review of the chart, coordination of colon and a procedure with OBGYN are supposed to be in discussion. Original appointment kept on 09/[address] Winston @ [facility]. * Telephone Encounter - Carlos Choe RN [...] with patients . * Telephone Encounter - TRINIYT Gonzalez - 08/30/2022 10:29 AM EDT I know there was some behind the scenes work on trying to get admission or a nurse to help with prep TRINITY Sanderson 08/30/2022 10:29 AM * Telephone Encounter - Rea Cervantes RN - 08/30/2022 10:17 AM EDT Jennifer from [facility] calling to let us know that patient was in their ED for GI bleed yesterday and was discharge home at 5:15 pm yesterday. No new orders, but patient is scheduled for a colonoscopy on the at [facility]. She said her wanted her admitted [...] caregiver. I told her patient has social service director with [facility] and I will reach out. Call to [...] Routed to care team Rea Cervantes. STEFFEN [facility] special police [phone] * Telephone Encounter - Carlos Choe RN [...] Scheduling moved patients Colon to 09/04 @ [facility]. * Telephone Encounter - Yady Mcleod LPN [...] Description 08/31/2022 Scheduled Telephone [facility] [address] [place] [address] 09/01/2022 Scheduled Telephone [facility], Nurse [facility] [address] [place] [address] 09/11/2022 Home Visit [facility] Sallie Lynne, RN [address] [place] [address] 09/20/2022 Procedure Only Endoscopy Jenny Winston, [address] [place] [address] 10/31/2022 Home Visit [facility] Makeda Parada PA-C [address] [place] [address] Scheduled Procedures Name Priority Associated Diagnoses Date/Ti [...] Documents on File Type Date Recorded Patient Invertebrate Paleontologist Expl anation Power of Sheep Herder 12/16/2018 10:33 AM Nate r of Sheep Herder Latest Code Status on File Code Status [...] the patient have Health Care Power of Sheep Herder? No Healthcare Agents on File Name Relationship Healthcare Agent Relationshi p Communication Wesley Lee Sonya Spouse Health Care Agent Care Teams Water/Wastewater Project Manager Relationship Specialty Start Date End Date Bella Power MD [address] [place] [address] [place] [id number] PCP - General Family Medicine 04/02/19 documented as of this encounter
--- OUTSIDE RECORDS SUMMARY | 2023-01-25 20:45 | External Medical Summary | Summary of Care ---
Author Name Unknown Organization [facility] Address [address] [facility] [place] [address] Phone [phone] Care Team Providers Care Cat Tender Name Role Phone Bella Power MD Primary Care Prov ider Reason for Visit * Reason Onset Date Comments Advice 08/02/2022 Bleeding Encounter Details Date Type Department Care Team Description 08/02/2022 Telephone Family Medicine [address] [address] Bella Power MD [address] [place], [place] [address] [address] Advice (Bleeding) Allergies No known active allergiesdocumented as of this encounter (statuses as of 08/29/2022) Medications Medication Sig Dispensed Refills Start Date [...] )Indications:COPD, group B, by GOLD 2017 classification ([facility] [...] as of this encounter (statuses as of 08/29/2022) Active Problems Problem Noted Date Rectal bleeding [...] as of this encounter (statuses as of 08/29/2022) Resolved Problems Problem Noted Date Resolved Date [...] as of this encounter (statuses as of 08/29/2022) Immunizations Name Administration Dates Next Due COVID-19 [...] encounter Miscellaneous Notes * Telephone Encounter - Marysol Hart PA-C [...] electing to take patient to ER at [facility] - nursing staff did call and provide [...] dialysis and will have them run in [employer] system today No need for pt to [...] this pt. Dr Castanon does surgeries at [facility] [address] on Fridays. Please contact me at [phone]. * Telephone Encounter - Monalisa Childers LPN [...] a date these can be done at [facility]( must bedone at the hospital , due [...] and needs D&C. Forward to GI and [facility] to see if we can coordinate hospitalization for colonoscopy and D&C. Nursing: Recommend CBC and PT/INR now too please. * Telephone Encounter - Debora Barker RN - 08/06/2022 7:32 AM EDT Please see message below, and also review ENGINEERING PSYCHOLOGIST note of 07/24/22. Pt saw GI about [...] Date Type Specialty Care Team Description 09/04/2022 Home Visit [facility] Sallie Lynne, RN [address] [facility] [place] [address] 09/20/2022 Procedure Only Endoscopy AnthonyLori dixonily Piter, [address] [place] [address] 10/31/2022 Home Visit [facility] [place], Makeda Orona PA-C [address] [place] [address] Scheduled Procedures Name Priority Associated Diagnoses Date/Ti [...] 15.2 seconds 08/15/2022 10:04 PM EDT LABORATORY C INR 0.9 0.8 - 1.2 08/15/2022 10:04 PM EDT LABORATORY [facility] Blood Venous blood specimen / Unknown Venipuncture / Unknown 08/15/2022 9:54 AM EDT 08/15/2022 9:54 AM EDT Narrative LABORATORY [facility] - 08/15/2022 10:04 PM EDT Warfarin Therapy INR: 2.0-3.0 conventional anticoagulation INR: 2.5-3.5 high intensity anticoagulation Andre Steward MD LAB BLOOD ORDERAB LES LABORATORY [facility] [address] [place] [address] * (ABNORMAL) CBC (08/15/2022 9:54 AM EDT) WBC 9.69 4.00 - 10.80 K/uL 08/15/2022 11:42 PM EDT LABORATORY [facility] RBC 2.84 3.85 - 5.15 M/uL 08/15/2022 11:42 PM EDT LABORATORY [facility] HGB 9.3(L) 12.0 - 15.3 g/dL 08/15/2022 11:42 PM EDT LABORATORY C HCT 31.5(L) 36.0 - 45.2 % 08/15/2022 11:42 PM EDT LABORATORY C MCV 110.9 81.5 - 97.5 fL 08/15/2022 11:42 PM EDT LABORATORY C MCH 32.7 27.0 - 34.0 pg 08/15/2022 11:42 PM EDT LABORATORY [facility] MCHC 29.5 32.0 - 36.0 g/dL 08/15/2022 11:42 PM EDT LABORATORY [facility] RDW 23.1 11.5 - 15.5 % 08/15/2022 11:42 PM EDT LABORATORY C PLT 218 140 - 400 K/uL 08/15/2022 11:42 PM EDT LABORATORY C MPV 10.8 6.6 - 11.1 fL 08/15/2022 11:42 PM EDT LABORATORY [facility] nRBCs 0 <=0 /100 WBCs 08/15/2022 11:42 PM EDT LABORATORY [facility] Blood Venous blood specimen / Unknown Venipuncture / Unknown 08/15/2022 9:54 AM EDT 08/15/2022 9:54 AM EDT Andre Steward MD LAB BLOOD ORDERAB LES LABORATORY [facility] [address] [place] [address] * (ABNORMAL) PT INR (08/10/2022 1:48 PM [...] MD LAB BLOOD ORDERABLES Performing Organization Address City/[facility]/ZIP Co de Phone Number LABORATORY [place] [phone] [place] [address] documented in this encounter Visit Diagnoses Diagnosis Rectal bleeding- Primary Hemorrhage of rectum and anus documented in this encounter Advance Directives Documents on File Type Date Recorded Patient Charter Coordinator Expl anation Power of Gas Or Water Meter Installer 12/16/2018 10:33 AM Nate r of Gas Or Water Meter Installer Latest Code Status on File Code Status [...] the patient have Health Care Power of Gas Or Water Meter Installer? No Healthcare Agents on File Name Relationship Healthcare Agent Relationshi p Communication Wesley Hassan Spouse Health Care Agent Care Teams Cat Tender Relationship Specialty Start Date End Date Bella Power MD [address] [place] [address] [place] [address] PCP - General Family Medicine 04/02/19 documented as of this encounter
--- OUTSIDE RECORDS SUMMARY | 2023-01-25 20:45 | External Medical Summary | Summary of Care ---
Author Name Unknown Organization [facility] Address [address] [facility] [place] [address] Phone [phone] Care Team Providers Care Independent Beauty Consultant Name Role Phone Bella Power MD Primary Care Prov ider Reason for Visit * Reason Onset Date Comments [facility]: Maintenance 08/30/2022 Encounter Details Date Type Department Care Team Description 08/30/2022 Telephone [facility]astroenterology, [facility] [place] [address] Stephanie Greenberg CRNP [address] [facility] [place] [address] [facility]: Maintenance Allergies No known [...] 1 Each 1 11/27/2018 Active DIURETIC TITRATION PLANIndications:District Home Economics Agent sandro heart failure with preserved ejection fraction [...] on 09/[address] Winston @ [facility]. * Telephone Encounter - Carlos Choe RN [...] - 08/30/2022 10:17 AM EDT Jennifer from [facility] calling to let us know that patient was in their ED for GI bleed yesterday and was discharge home at 5:15 pm yesterday. No new orders, but patient is scheduled for a colonoscopy on the at [facility]. She said her wanted her admitted to give her the prep. He said there is no way he can do it at home. He wastold that this might not be able to be done. She also aid when she spoke to patient's , he might need some support. She is bed bound and he is the caregiver. I told her patient has social media strategist with [facility] and I will reach out. Call [...] Routed to care team Rea Cervantes. RN [facility] driver license reviewing officer [phone] * Telephone Encounter - Carlos Choe RN [...] moved patients Colon to 09/04 @ [facility]. * Telephone Encounter - Yady Mcleod LPN - 08/30/2022 8:50 AM EDT [facility] calling. Pt seen at [facility] last night for rectal bleeding. HGB - 8.5 at [facility]. Was not admitted. Familyconcerned about the bleeding. They are concerned about the prep and being able to manage pt. Wondering if admission prior colonoscopy is possible to manage pt during prep. FYI to provider. documented in this encounter Plan of Treatment Upcoming Encounters Date Type Specialty Care Team Description 08/31/2022 Scheduled Telephone [facility], Nurse [facility] [address] [place] [address] 09/01/2022 Scheduled Telephone [facility], Nurse [facility] [address] [place] [address] 09/11/2022 Home Visit [facility] Sallie Lynne, [place] [address] [facility] [address] 09/20/2022 Procedure Only Endoscopy Jenny Winston, DO [address] [place] [address] 10/31/2022 Home Visit [facility] Makeda Parada PA-C [address] [place] [address] Scheduled Procedures Name Priority Associated Diagnoses Date/Ti [...] File Type Date Recorded Patient X Ray Developing Machine Operator Expl anation Power of Cost Recovery Technician 12/16/2018 10:33 AM Nate r of Cost Recovery Technician Latest Code Status on File Code [...] the patient have Health Care Power of Cost Recovery Technician? No Healthcare Agents on File Name Relationship Healthcare Agent Relationshi p Communication Wesley Hassan Spouse Health Care Agent Care Teams Independent Beauty Consultant Relationship Specialty Start Date End Date Bella Power MD [address] [place] [address] [place] [address] PCP - General Family Medicine 04/02/19 documented as of this encounter
--- OUTSIDE RECORDS SUMMARY | 2023-01-25 20:45 | External Medical Summary | Summary of Care ---
Author Name Unknown Organization [facility] Address [address] [facility] [place] [address] Phone [phone] Care Team Providers Care Well Tender Name Role Phone Bella Power MD Primary Care Prov ider Reason for Visit * Reason Onset Date Comments [facility]: Maintenance 08/30/2022 Encounter Details Date Type Department Care Team Description 08/30/2022 Telephone [facility]astroenterology, [facility] [place] [address] Stephanie Greenberg CRNP [address] [facility] [place] [address] [facility]: Maintenance Allergies No known [...] 1 Each 1 11/27/2018 Active DIURETIC TITRATION PLANIndications:Registration Specialist sandro heart failure with preserved ejection [...] group B, by GOLD 2017 classification ([facility]) Inhale by mouth 1 Puff [...] - 08/30/2022 10:17 AM EDT Jennifer from [facility] calling to let us know that patient was in their ED for GI bleed yesterday and was discharge home at 5:15 pm yesterday. No new orders, but patient is scheduled for a colonoscopy on the at [facility]. She said her wanted her admitted [...] the caregiver. I told her patient has medical social worker with [facility] and I will reach out. Call to [...] Routed to care team Rea Cervantes. RN [facility] RN [phone] * Telephone Encounter - Carlos Choe RN [...] AM EDT [place] calling. Pt seen at [facility] last night for rectal bleeding. HGB - 8.5 at [facility]. Was not admitted. Familyconcerned about the bleeding. They are concerned about the prep and being able to manage pt. Wondering if admission prior colonoscopy is possible to manage pt during prep. FYI to provider. documented in this encounter Plan of Treatment Upcoming Encounters Date Type Specialty Care Team Description 08/31/2022 Scheduled Telephone [facility], Nurse [facility] [address] [facility] [place] [address] 09/01/2022 Scheduled Telephone [facility], Nurse [facility] [address] [place] [address] 09/11/2022 Home Visit [facility] Sallie Lynne, STEFF[place] [address] [facility] [place] [address] 10/31/2022 Home Visit [facility] Makeda Parada PA-C [address] [place] [address] 01/30/2023 Procedure Only Endoscopy Guadalupe Hernandez DO [address] [place] [address] Scheduled Procedures Name Priority Associated Diagnoses Date/Ti [...] Documents on File Type Date Recorded Patient Shovel Engineer Expl anation Power of Supervisor Pastry 12/16/2018 10:33 AM Nate peralta of Supervisor Pastry Latest Code Status on File Code Status [...] the patient have Health Care Power of Supervisor Pastry? No Healthcare Agents on File Name Relationship Healthcare Agent Relationshi p Communication Wesley E Eggler Spouse Health Care Agent Care Teams Well Tender Relationship Specialty Start Date End Date Bella Power MD [address] [place] [address] [place] [address] PCP - General Family Medicine 04/02/19 documented as of this encounter
--- OUTSIDE RECORDS SUMMARY | 2023-01-25 20:45 | External Medical Summary | Summary of Care ---
Author Name Unknown Organization [facility] Address [address] [facility] [place] [address] Phone [phone] Care Team Providers Care Welcome Wagon Host/Hostess Name Role Phone Bella Power MD Primary Care Prov ider Reason for Visit * Reason Onset Date Comments [facility]: Maintenance 08/30/2022 Encounter Details Date Type Department Care Team Description 08/30/2022 Telephone [facility]astroenterology, [facility] [place] [address] Stephanie Greenberg CRNP [address] [facility] [place] [address] [facility]: Maintenance Allergies No known [...] 1 Each 1 11/27/2018 Active DIURETIC TITRATION PLANIndications:Wire Winding Machine Operator sandro heart failure with preserved [...] B, by GOLD 2017 classification ([facility]) Inhale by mouth 1 Puff in [...] kept on 09/[address] Winston @ [facility]. * Telephone Encounter - Carlos [...] - 08/30/2022 10:17 AM EDT Jennifer from [facility] calling to let us know that patient was in their ED for GI bleed yesterday and was discharge home at 5:15 pm yesterday. No new orders, but patient is scheduled for a colonoscopy on the at [facility]. She said her wanted her admitted to [...] I told her patient has social worker school with [facility] and I will reach out. Call [...] Routed to care team Rea Cervantes. RN [facility] sewing machine repairer [phone] * Telephone Encounter - Carlos Choe RN [...] Scheduling moved patients Colon to 09/04 @ [facility]. * Telephone Encounter - Yady Mcleod LPN - 08/30/2022 8:50 AM EDT [facility] calling. Pt seen at [facility] last night for rectal bleeding. HGB - 8.5 at [facility]. Was not admitted. Familyconcerned about the bleeding. They are concerned about the prep and being able to manage pt. Wondering if admission prior colonoscopy is possible to manage pt during prep. FYI to provider. documented in this encounter Plan of Treatment Upcoming Encounters Date Type Specialty Care Team Description 08/31/2022 Scheduled Telephone [facility], Nurse [facility] [address] [place] [address] 09/01/2022 Scheduled Telephone [facility], Nurse [facility] [address] [place] [address] 09/11/2022 [facility] Visit [facility] Sallie Lynne, [place] [address] [facility] [address] 09/20/2022 Procedure Only Endoscopy Jenny Winston, DO [address] [place] [address] 10/31/2022 Home Visit [facility] Makeda Parada PA-C [address] [place] [address] Scheduled Procedures Name Priority Associated Diagnoses Date/Ti [...] File Type Date Recorded Patient Director Of Safety Expl anation Power of Application Support Developer 12/16/2018 10:33 AM Nate r of Application Support Developer Latest Code Status on File Code Status [...] the patient have Health Care Power of Application Support Developer? No Healthcare Agents on File Name Relationship Healthcare Agent Relationshi p Communication Wesley Hassan Spouse Health Care Agent Care Teams Welcome Wagon Host/Hostess Relationship Specialty Start Date End Date Bella Power MD [address] [place] [address] [place] [address] PCP - General Family Medicine 04/02/19 documented as of this encounter
--- OUTSIDE RECORDS SUMMARY | 2023-01-25 20:45 | External Medical Summary | Summary of Care ---
Author Name Unknown Organization [facility] Address [address] [facility] [place] [address] Phone [phone] Care Team Providers Care Refractory Mixer Name Role Phone Bella Power MD Primary Care Prov ider Encounter Details Date Type Department Care Team Description 08/30/2022 Telephone Gastroenterology, [facility] [address] [place] [address] Stephanie Greenberg CRNP 132 [facility] [place] [address] Allergies No known active allergiesdocumented as of [...] 1 Each 1 11/27/2018 Active DIURETIC TITRATION PLANIndications:Tractor Operator Helper sandro heart failure with preserved ejection fraction [...] B, by GOLD 2017 classification ([facility]) Inhale by mouth 1 Puff in [...] Scheduling moved patients Colon to 09/04 @ [facility]. * Telephone Encounter - Yady Mcleod LPN - 08/30/2022 8:50 AM EDT [place] calling. Pt seen at [place] last night for rectal bleeding. HGB - 8.5 at [place]. Was not admitted. Familyconcerned about the bleeding. They are concerned about the prep and being able to manage pt. Wondering if admission prior colonoscopy is possible to manage pt during prep. FYI to provider. documented in this encounter Plan of Treatment Upcoming Encounters Date Type Specialty Care Team Description 09/04/2022 Procedure Only Endoscopy Garrett Chang MD [address] [place] [address] 09/11/2022 Home Visit [facility] Sallie Lynne, RN [address] [place] [address] 10/31/2022 Home Visit [facility] Makeda Parada PA-C [address] [place] [address] Scheduled Procedures Name Priority Associated Diagnoses Date/Ti [...] Documents on File Type Date Recorded Patient Solar Design Engineer Expl anation Power of Title I Assistant 12/16/2018 10:33 AM Nate r of Title I Assistant Latest Code Status on File Code Status [...] the patient have Health Care Power of Title I Assistant? No Healthcare Agents on File Name Relationship Healthcare Agent Relationshi p Communication Wesley Hassan Spouse Health Care Agent Care Teams Refractory Mixer Relationship Specialty Start Date End Date Bella Power MD [address] [place] [address] [place] [address] PCP - General Family Medicine 04/02/19 documented as of this encounter
--- OUTSIDE RECORDS SUMMARY | 2023-01-25 20:46 | External Medical Summary | Summary of Care ---
Author Name Unknown Organization [facility] Address [address] [place] [facility] [place] [address] Phone [phone] Care Team Providers Care Timber Framer Helper Name Role Phone Bella Power MD Primary Care Prov ider Encounter Details Date Type Department Care Team Description 08/13/2022 Telephone Ne[address] [place] [id number] Erica Tobar MD [address] [place] [address] [place] [address] Allergies No known active allergiesdocumented as of this encounter (statuses as of 08/15/2022) Medications Medication Sig Dispensed Refills Start Date End Date Status ONETOUCH DELICA LANCETS 33G MISC Up to 4 times daily 100 Each 6 5 Active Glucose Blood (ONETOUCH ULTRA BLUE) STRP Use as directed 4 times a day as needed (Diabetes). Use up to four times a day as directed 100 Strip 11 8 Active Nebulizers (NEBULIZER COMPRESSOR) MISCIndications:FAMILY LAW MEDIATOR D, group B, by GOLD 2017 classification ([facility]) Inhale via nebulizer. Use as directed. 1 Each 1 9 Active DIURETIC TITRATION PLANIndications:Chr onic heart failure [...] morning. 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 90 Tablet 3 2 08/24/19 23 Active Levothyroxine Sodium 125 MCG Oral Tablet (Levoxyl) TAKE 1 TABLET BY MOUTH DAILY AT LEAST 30 MINUTES PRIOR TO FIRST MEAL OF THE DAY OR OTHER MEDICATIONS. 90 Tablet 3 2 08/24/19 23 Active Carbidopa-Levodopa 25-100 MG Oral Tablet (Sinemet) TAKE ONE TABLET BY MOUTH THREE TIMES A DAY WITH MEALS 90 Tablet 5 2 03/05/20 23 Active Pregabalin 100 MG Oral Capsule (Lyrica)Indications :Primary parkinsonism (HCC) Take 1 capsule twice daily. May take 1 extra capsule after dialysis. 90 Capsule 2 3 Active Pantoprazole Sodium 20 MG Oral Tablet Delayed Release (Protonix) Take 1 Tablet by mouth in the morning and 1 Tablet in the evening. 180 Tablet 1 3 Active Lidocaine-Prilocain e 2.5-2.5 % External Cream [...] mouth in the morning. 0 3 Active Docusate Sodium 100 MG Oral Capsule (Colace)Indications :Chronic idiopathic constipation TAKE ONE CAPSULE BY MOUTH IN THE MORNING AND ONE CAPSULE BEFORE BEDTIME 60 Capsule 5 3 08/06/19 24 Active Cefuroxime Axetil 250 MG Oral Tablet (Ceftin) 250 mg orally daily 5 Tablet 0 3 08/15/19 23 Discontinued Pregabalin 100 MG Oral Capsule (Lyrica)Indications :Degenerative disease of nervous system, unspecified (HCC) TAKE 1 CAPSULE BY MOUTH TWICE DAILY TAKE AN EXTRA CAPSULE AFTER DIALYSIS 90 Capsule 0 3 08/15/19 23 Discontinued documented as of this encounter (statuses as of 08/15/2022) Active Problems Problem Noted Date Rectal bleeding [...] as of this encounter (statuses as of 08/15/2022) Resolved Problems Problem Noted Date Resolved Date [...] as of this encounter (statuses as of 08/15/2022) Immunizations Name Administration Dates Next Due COVID-19 [...] encounter Miscellaneous Notes * Telephone Encounter - Sallie Lynne RN - 08/13/2022 4:57 PM EDT Will route to RENÉ's who are assisting with scheduling. * Telephone Encounter - Erica Tobar MD - 08/13/2022 4:35 PM EDT And is the plan for admission/obs for prep and completion of those procedures or for same day? * Telephone Encounter - Sallie Lynne RN - 08/13/2022 11:58 AM EDT According to telephone encounter 08/02- SURFACE GRINDING MACHINE HAND are coordinating with GI to have appointment set up for both colonoscopy and D&C with last entry being this morning- no appointment to present- they are still working on it. * Telephone Encounter - TRINITY Gonzalez - 08/13/2022 11:29 AM EDT Noted, thanks. Any update on how we are able to get this patient a colonoscopy since she requires admission? TRINITY Sanderson 08/13/2022 11:30 AM * Telephone Encounter - Erica Tobar MD - 08/13/2022 9:56 AM EDT Images from the original note were not included. ANEMIA UPDATE Dialysis anemia Labs: Dialysis Anemia Meds Pt hgb dropping fast past 2 wks > was 8.1 on last check; repeat drawn today and pending. Hgb 11.2 last month. Seen at dialysis today. No dyspnea, chest pain, worse fatigue; does endorse one week of black stool. Pt not always a reliable historian. Unremarkable EGD 06/2022 [facility] Saw GI 03/2022 w/ consideration if normal EGD of colonoscopy (as well as concerns of how to prep as a w/c bound pt) A/P Melena, worsening anemia -we will continue maximal support w/ LAVERNE, IV iron, weekly hgb -update to G@H and GI w/ above labs/hx>> consider colonoscopy and how to make this feasible >> ? Short term home nurse versus observation at hospital for procedure -we will update of above documented in this encounter Plan of Treatment Upcoming Encounters Date Type Specialty Care Team Description 09/04/2022 Home Visit [facility] Sallie Lynne, STEFFEN [address] [facility] [place] [address] 09/20/2022 Procedure Only Endoscopy Suvock, Jenny T, DO [address] [place] [address] 10/25/2022 [facility] Visit [facility] Tal, Makeda Orona PA-C [address] [place] [address] Scheduled Procedures Name Priority Associated Diagnoses Date/Ti [...] on File Type Date Recorded Patient Service Desk Associate Expl anation Power of Neurosurgery Physician 12/16/2018 10:33 AM Nate r of Neurosurgery Physician Latest Code Status on File Code Status [...] the patient have Health Care Power of Neurosurgery Physician? No Healthcare Agents on File Name Relationship Healthcare Agent Relationshi p Communication Wesley E Sonya Spouse Health Care Agent Care Teams Timber Framer Helper Relationship Specialty Start Date End Date Bella Power MD [address] [place] [address] [place] [address] PCP - General Family Medicine 04/02/19 documented as of this encounter
--- OUTSIDE RECORDS SUMMARY | 2023-01-25 20:46 | External Medical Summary | Summary of Care ---
Author Name Unknown Organization [facility] Address [address] [facility] [place] [address] Phone [phone] Care Team Providers Care Pre Billing Clinician Name Role Phone Bella Power MD Primary Care Prov ider Reason for Visit * Reason Onset Date Comments Advice 08/02/2022 Bleeding Encounter Details Date Type Department Care Team Description 08/02/2022 Telephone Family Medicine [address] [phone] Bella Power MD [address] [place], [place] [address] Advice (Bleeding) Allergies No known active allergiesdocumented as of this encounter (statuses as of 08/27/2022) Medications Medication Sig Dispensed Refills Start Date [...] )Indications:COPD, group B, by GOLD 2017 classification ([facility]) Inhale by mouth 1 Puff in [...] as of this encounter (statuses as of 08/27/2022) Active Problems Problem Noted Date Rectal bleeding [...] as of this encounter (statuses as of 08/27/2022) Resolved Problems Problem Noted Date Resolved Date [...] as of this encounter (statuses as of 08/27/2022) Immunizations Name Administration Dates Next Due COVID-19 [...] Miscellaneous Notes * Telephone Encounter - RENÉ Hayes - [...] dialysis and will have them run in [facility] system today No need for pt to [...] pt from Dr Castanon. Would someone from [facility] scheduling contact me so we can coordinate a date for this pt. Dr Castanon does surgeries at [facility] on Fridays. Please contact me at [phone]. * Telephone Encounter - Monalisa Childers LPN [...] a date these can be done at [facility]( must bedone at the hospital , [...] and needs D&C. Forward to GI and Blower Room Attendant to see if we can coordinate hospitalization for colonoscopy and D&C. Nursing: Recommend CBC and PT/INR now too please. * Telephone Encounter - Debora Barker RN - 08/06/2022 7:32 AM EDT Please see message below, and also review MIXING ROLL OPERATOR note of 07/24/22. Pt saw GI about [...] 09/04/2022 [facility] [address] [facility] [address] 09/20/2022 Procedure Only Endoscopy Jenny Winston DO [address] [place] [address] 10/31/2022 Home Visit [facility] Makeda Parada PA-C [address] [place] [address] Scheduled Procedures Name Priority Associated Diagnoses Date/Ti [...] 15.2 seconds 08/15/2022 10:04 PM EDT LABORATORY [facility] INR 0.9 0.8 - 1.2 08/15/2022 10:04 PM EDT LABORATORY [facility] Blood Venous blood specimen / Unknown Venipuncture / Unknown 08/15/2022 9:54 AM EDT 08/15/2022 9:54 AM EDT Narrative LABORATORY [facility] - 08/15/2022 10:04 PM EDT Warfarin Therapy INR: 2.0-3.0 conventional anticoagulation INR: 2.5-3.5 high intensity anticoagulation Andre Steward MD LAB BLOOD ORDERAB LES LABORATORY [facility] [address] [place] [address] * (ABNORMAL) CBC (08/15/2022 9:54 [...] 15.5 % 08/15/2022 11:42 PM EDT LABORATORY [facility]T 218 140 - 400 K/uL 08/15/2022 11:42 PM EDT LABORATORY [facility] MPV 10.8 6.6 - 11.1 fL 08/15/2022 11:42 PM EDT LABORATORY [facility] nRBCs 0 <=0 /100 WBCs 08/15/2022 11:42 PM EDT LABORATORY [facility] Blood Venous blood specimen / Unknown Venipuncture / Unknown 08/15/2022 9:54 AM EDT 08/15/2022 9:54 AM EDT Andre Steward MD LAB BLOOD ORDERAB LES LABORATORY [facility] [address] [place] [address] * (ABNORMAL) PT INR (08/10/2022 1:48 PM EDT) Prothrombin Time 11.5(L) 11.6 - 15.2 seconds 08/10/2022 2:43 PM EDT LABORATORY [place] [facility] [facility]-10 INR 0.8 0.8 - 1.2 08/10/2022 2:43 PM EDT LABORATORY [place] 57-10 Blood Venous blood specimen / Unknown Venipuncture / Unknown 08/10/2022 1:48 PM EDT 08/10/2022 1:48 PM EDT Narrative LABORATORY [facility] 57-10 - 08/10/2022 2:43 PM EDT Warfarin Therapy INR: 2.0-3.0 conventional anticoagulation INR: 2.5-3.5 high intensity anticoagulation Bella Rubio MD LAB BLOOD ORDERABLES [facility] [address] [facility] [place] [address] documented in this encounter Visit Diagnoses Diagnosis Rectal bleeding- Primary Hemorrhage of rectum and anus documented in this encounter Advance Directives Documents on File Type Date Recorded Patient Harness Brusher Expl anation Power of Manager Order 12/16/2018 10:33 AM Nate r of Manager Order Latest Code Status on File Code Status [...] patient have Health Care Power of Manager Order? No Healthcare Agents on File Name Relationship Healthcare Agent Relationshi p Communication Wesley Hassan Spouse Health Care Agent Care Teams Pre Billing Clinician Relationship Specialty Start Date End Date Bella Power MD [address] [place] [address] [place] [address] PCP - General Family Medicine 04/02/19 documented as of this encounter
--- OUTSIDE RECORDS SUMMARY | 2023-01-25 20:46 | External Medical Summary | Summary of Care ---
Author Name Unknown Organization [facility] Address [address] [facility] [place] [address] Phone [phone] Care Team Providers Care Dermatologist Managing Partner Name Role Phone Bella Power MD Primary Care Prov ider Reason for Visit * Reason Comments Outpatient Testing Encounter Details Date Type Department Care Team Description 08/15/2022 Laboratory Laboratory [address] [place] [id number] , Specimen Drop Off [address] [place] [id number] Rectal bleeding Allergies No known active allergiesdocumented [...] 1 Each 1 11/27/2018 Active DIURETIC TITRATION PLANIndications:Front Desk Representative sandro heart failure with preserved ejection fraction [...] the morning. 60 Each 0 08/22/2021 Active Sertraline HCl 100 MG Oral Tablet (Zoloft) TAKE ONE TABLET BY MOUTH IN THE MORNING 30 Tablet 5 02/01/2022 3 Active Isosorbide Mononitrate ER 30 MG Oral Tablet Extended Release 24 Hour (Imdur) TAKE ONE TABLET BY MOUTH DAILY 90 Tablet 3 12/27/2021 3 Active Hydrocortisone (Perianal) 2.5 % External CreamIndications:Hem orrhoids, external without complications ADMINISTER INTO RECTUM OR APPLY TO EXTERNAL HEMORRHOIDS ONCE DAILY 28 g 2 11/30/2021 3 Active Atorvastatin Calcium 80 MG Oral Tablet (Lipitor) TAKE 1 TABLET BY MOUTH DAILY. 90 Tablet 3 08/23/2021 3 Active Levothyroxine Sodium 125 MCG Oral Tablet (Levoxyl) TAKE 1 TABLET BY MOUTH DAILY AT LEAST 30 MINUTES PRIOR TO FIRST MEAL OF THE DAY OR OTHER MEDICATIONS. 90 Tablet 3 08/23/2021 3 Active Carbidopa-Levodopa 25-100 MG Oral Tablet (Sinemet) TAKE ONE TABLET BY MOUTH THREE TIMES A DAY WITH MEALS 90 Tablet 5 03/05/2022 3 Active Pregabalin 100 MG Oral Capsule (Lyrica)Indications: Primary parkinsonism (HCC) Take 1 capsule twice daily. May take 1 extra capsule after dialysis. 90 Capsule 2 04/02/2022 Active Pantoprazole Sodium 20 MG Oral Tablet [...] Visit [facility] Sallie Lynne, STEFFEN [address] [place] [address] 09/20/2022 Procedure Only Endoscopy Jenny Winston, [address] [place] [address] 10/25/2022 Home Visit [facility] Makeda Parada PA-C [address] [place] [address] Pending Results Name Type Priority Associated Diagnoses Date /Time CBC Lab STAT Rectal bleeding 08/15/2022 9:54 AM EDT PT INR Lab STAT Rectal bleeding 08/15/2022 9:54 AM EDT Scheduled Procedures Name Priority Associated [...] as of this encounter Visit Diagnoses Diagnosis Rectal bleeding Hemorrhage of rectum and anus documented in this encounter Advance Directives Documents on File Type Date Recorded Patient Warp Worker Expl anation Power of Data Processing Equipment Repairer 12/16/2018 10:33 AM Nate r of Data Processing Equipment Repairer Latest Code Status on File Code [...] the patient have Health Care Power of Data Processing Equipment Repairer? No Healthcare Agents on File Name Relationship Healthcare Agent Relationshi p Communication Wesley Lee Sonya Spouse Health Care Agent Care Teams Dermatologist Managing Partner Relationship Specialty Start Date End Date Bella Power MD [address] [place] [address] [place] [address] PCP - General Family Medicine 04/02/19 documented as of this encounter
--- OUTSIDE RECORDS SUMMARY | 2023-01-25 20:46 | External Medical Summary | Summary of Care ---
Author Name Unknown Organization [facility] Address [address] [facility] [place] [address] Phone [phone] Care Team Providers Care Combatant Diver Qualified Name Role Phone Bella Power MD Primary Care Prov ider Reason for Visit * Reason Comments Outpatient Testing Encounter Details Date Type Department Care Team Description 08/15/2022 Laboratory Laboratory [address] [place] [phone] , Specimen Drop Off [address] [place] [id number] Rectal bleeding Allergies No known active allergiesdocumented [...] 1 Each 1 11/27/2018 Active DIURETIC TITRATION PLANIndications:Gliding Pilot Instructor sandro heart failure with preserved ejection fraction [...] Visit [facility] Sallie Lynne, STE[address] [address] [place] [address] 09/20/2022 Procedure Only Endoscopy Jenny Winston, [address] [place] [address] 10/25/2022 Home Visit [facility] Makeda Parada PA-C [address] [place] [address] Pending Results Name Type Priority Associated Diagnoses [...] Documents on File Type Date Recorded Patient Exam Proctor Expl anation Power of Salvage Winder 12/16/2018 10:33 AM Nate r of Salvage Winder Latest Code Status on File Code Status [...] the patient have Health Care Power of Salvage Winder? No Healthcare Agents on File Name Relationship Healthcare Agent Relationshi p Communication Wesley Lee Sonya Spouse Health Care Agent Care Teams Combatant Diver Qualified Relationship Specialty Start Date End Date Bella Power MD [address] [place] [address] [place] [address] PCP - General Family Medicine 04/02/19 documented as of this encounter
--- OUTSIDE RECORDS SUMMARY | 2023-01-25 20:46 | External Medical Summary | Summary of Care ---
Author Name Unknown Organization [facility] Address [address] [facility] [place] [address] Phone [phone] Care Team Providers Care Endocrinology Teacher Name Role Phone Bella Power MD Primary Care Prov ider Reason for Visit * Reason Onset Date Comments Advice 08/02/2022 Bleeding Encounter Details Date Type Department Care Team Description 08/02/2022 Telephone Family Medicine [address] [phone] Bella Power MD [address] [place], [place] [address] [address] Advice (Bleeding) Allergies No known active [...] Strip 11 8 Active Nebulizers (NEBULIZER COMPRESSOR) MISCIndications:ROASTER HELPER D, group B, by GOLD 2017 classification ([facility]) Inhale via nebulizer. Use as directed. 1 [...] mouth in the morning. 0 3 Active Cefuroxime Axetil 250 MG Oral Tablet [...] encounter Miscellaneous Notes * Addendum Note - Andre Steward MD - 08/15/2022 9:53 AM EDTAddended by: ANDRE STEWARD on: 08/15/2022 09:53 AM Modules accepted: Orders * Telephone Encounter - Andre Steward MD - 08/15/2022 8:44 AM EDT Getting PT/INR and CBC today on dialysis and will have them run in [facility] system today No need for pt to [...] pt from Dr Castanon. Would someone from [facility] scheduling contact me so we can coordinate a date for this pt. Dr Castanon does surgeries at [facility] on Fridays. Please contact me at [phone]. * Telephone Encounter - Monalisa Childers LPN [...] a date these can be done at [facility]( must bedone at the hospital , due [...] and needs D&C. Forward to GI and Fire Hydrant Mechanic to see if we can coordinate hospitalization for colonoscopy and D&C. Nursing: Recommend CBC and PT/INR now too please. * Telephone Encounter - Debora Barker RN - 08/06/2022 7:32 AM EDT Please see message below, and also review SHOE RECONDITIONER note of 07/24/22. Pt saw GI about [...] [facility] Sallie Lynne RN [address] [facility] [place] [address] 09/20/2022 Procedure Only Endoscopy Jenny Winston, [address] [place] [address] 10/25/2022 Home Visit [facility] Makeda Parada PA-C [address] [place] [address] Scheduled Orders Name Type Priority Associated Diagnoses Orde r Schedule CBC Lab STAT Rectal bleeding Expected: 08/15/2022, Expires: 4 PT INR Lab STAT Rectal bleeding Expected: 08/15/2022, Expires: 4 Scheduled Procedures Name Priority Associated Diagnoses Date/Ti [...] filedocumented as of this encounter Results * (ABNORMAL) PT INR (08/10/2022 1:48 PM [...] Bella Rubio MD LAB BLOOD ORDERABLES LABORATORY [place] [facility] [place] [address] documented in this encounter Visit Diagnoses Diagnosis Rectal bleeding- Primary Hemorrhage of rectum and anus documented in this encounter Advance Directives Documents on File Type Date Recorded Patient Asphalt Tamping Machine Operator Expl anation Power of Keymodule Assembly Machine Tender 12/16/2018 10:33 AM Nate r of Keymodule Assembly Machine Tender Latest Code Status on File Code Status [...] the patient have Health Care Power of Keymodule Assembly Machine Tender? No Healthcare Agents on File Name Relationship Healthcare Agent Relationshi p Communication Wesley Hassan Spouse Health Care Agent Care Teams Endocrinology Teacher Relationship Specialty Start Date End Date Bella Power MD [address] [place] [address] [place] [address] PCP - General Family Medicine 04/02/19 documented as of this encounter
--- OUTSIDE RECORDS SUMMARY | 2023-01-25 20:46 | External Medical Summary | Summary of Care ---
Author Name Unknown Organization [facility] Address [address] [facility] [place] [address] Phone [phone] Care Team Providers Care Operations Developer Name Role Phone Bella Morillo MD Primary Care Prov ider Reason for Visit * Reason Comments Medication Refill Encounter Details Date Type Department Care Team Description 08/19/2022 Refill Family Medicine [address] [address] Bella Morillo MD [address] [place] [address] [place] [address] Dyslipidemia, goal LDL below 100* Allergies No known active allergiesdocumented as of this encounter (statuses as of 08/21/2022) Medications Medication Sig Dispensed Refills Start Date End Date Status ONETOUCH DELICA LANCETS 33G MISC Up to 4 times daily 100 Each 6 11/24/2014 Active Glucose Blood (ONETOUCH ULTRA BLUE) STRP Use as directed 4 times a day as needed (Diabetes). Use up to four times a day as directed 100 Strip 11 02/03/2018 Active Nebulizers (NEBULIZER COMPRESSOR) MISCIndications:STUDENT FINANCE ADVISOR D, group B, by GOLD 2017 classification ([facility]) Inhale via nebulizer. Use as directed. 1 [...] Indications:COPD, group B, by GOLD 2017 classification ([place] [...] DAILY 28 g 2 11/30/2021 3 Active Levothyroxine Sodium 125 MCG Oral Tablet (Levoxyl) TAKE 1 TABLET BY MOUTH DAILY AT LEAST 30 MINUTES PRIOR TO FIRST MEAL OF THE DAY OR OTHER MEDICATIONS. 90 Tablet 3 08/23/2021 3 Active Carbidopa-Levodopa 25-100 MG Oral Tablet (Sinemet) TAKE ONE TABLET BY MOUTH THREE TIMES A DAY WITH MEALS 90 Tablet 5 03/05/2022 3 Active Pregabalin 100 MG Oral Capsule (Lyrica)Indications [...] MORNING 30 Tablet 5 08/21/2022 4 Active Atorvastatin Calcium 80 MG Oral Tablet (Lipitor) TAKE 1 TABLET BY MOUTH DAILY. 90 Tablet 1 08/21/2022 4 Active Sertraline HCl 100 MG Oral Tablet (Zoloft) TAKE ONE TABLET BY MOUTH IN THE MORNING 30 Tablet 5 02/01/2022 3 Discontinu ed(Refill) Atorvastatin Calcium 80 MG Oral Tablet (Lipitor) TAKE 1 TABLET BY MOUTH DAILY. 90 Tablet 3 08/23/2021 3 Discontinu ed(Refill) documented as of this encounter (statuses as of 08/21/2022) Active Problems Problem Noted Date Rectal bleeding [...] as of this encounter (statuses as of 08/21/2022) Resolved Problems Problem Noted Date Resolved Date [...] as of this encounter (statuses as of 08/21/2022) Immunizations Name Administration Dates Next Due COVID-19 [...] encounter Miscellaneous Notes * Telephone Encounter - Myranda Valverde RPh - 08/21/2022 6:06 AM EDTSigned Prescriptions: Disp Refills Sertraline HCl 100 MG Oral Tablet (Zoloft) 30 Tab*5 Sig: TAKE ONE TABLET BY MOUTH IN THE MORNING Authorizing Provider: BELLA MORILLO Ordering User: MYRANDA VALVERDE Atorvastatin Calcium 80 MG Oral Tablet (Li*90 Tab*1 Sig: TAKE 1 TABLET BY MOUTH DAILY. Authorizing Provider: BELLA MORILLO Ordering User: MYRANDA HOU * Telephone Encounter - Myranda Valverde RPh - 08/21/2022 6:06 AM EDT Provided 90 days supply with 1 refill(s) until next routine labs will approximately be drawn. Per refill protocol patient should have lipid on file within past year. Reviewed AMP report, Care Gaps/Health Maintenance, medications list, and for any routine labs typically ordered for this patient. Laborders placed. Patient can complete labs with next routine lab work. Thank you, Myranda Valverde, PharmD. Clinical Pharmacist Centralized Clinical Pharmacy Services ([facility]PS) (formerly Telepharmacy) 08/21/2022, 6:06 AM * Telephone Encounter - Mary Rendon CPhT - 08/19/2022 3:34 PM EDTPending Prescriptions: Disp Refills Sertraline HCl 100 MG Oral Tablet (Zoloft) 30 Tab*5 Sig: TAKE ONE TABLET BY MOUTH IN THE MORNING Atorvastatin Calcium 80 MG Oral Tablet (Li*90 Tab*3 Sig: TAKE 1 TABLET BY MOUTH DAILY. documented in this encounter Plan of Treatment Upcoming Encounters Date Type Specialty Care Team Description 09/04/2022 [facility] Visit [facility] Sallie Lynne [facility] [address] [facility] [place] [address] 09/20/2022 Procedure Only Endoscopy Jenny Winston DO [address] [place] [address] 10/25/2022 Home Visit [facility] Makeda Parada PA-C [address] [place] [address] Scheduled Orders Name Type Priority Associated Diagnoses Orde r Schedule LIPID PANEL WITH DIRECT LDL IF TG IS HIGH Lab Routine Dyslipidemia, goal LDL below 100 Expected: 08/21/2022 (Approximate), Expires: 08/22/2023 Scheduled Procedures Name Priority Associated Diagnoses Date/Ti [...] Visit Diagnoses Diagnosis Dyslipidemia, goal LDL below 100- Primary Other and unspecified hyperlipidemia documented in this encounter Advance Directives Documents on File Type Date Recorded Patient Invoice Clerk Expl anation Power of Adult Psychiatrist 12/16/2018 10:33 AM Nate r of Adult Psychiatrist Latest Code Status on File Code Status [...] the patient have Health Care Power of Adult Psychiatrist? No Healthcare Agents on File Name Relationship Healthcare Agent Relationshi p Communication Wesley Hassan Spouse Health Care Agent Care Teams Operations Developer Relationship Specialty Start Date End Date Bella Morillo MD [address] [place] [address] [place] [address] PCP - General Family Medicine 04/02/19 documented as of this encounter
--- OUTSIDE RECORDS SUMMARY | 2023-01-25 20:46 | External Medical Summary | Summary of Care ---
Author Name Unknown Organization [facility] Address [address] [facility] [place] [address] Phone [phone] Care Team Providers Care Tube Bender Hand Name Role Phone Bella Power MD Primary Care Prov ider Reason for Visit * Reason Onset Date Comments Advice 08/02/2022 Bleeding Encounter Details Date Type Department Care Team Description 08/02/2022 Telephone Family Medicine [address] [address] Bella Power MD [address] [place], [place] [address] [address] Advice (Bleeding) Allergies No known active [...] Strip 11 8 Active Nebulizers (NEBULIZER COMPRESSOR) MISCIndications:KITCHEN AIDE D, group B, by GOLD 2017 classification ([facility]) Inhale via nebulizer. Use as [...] B, by GOLD 2017 classification ([facility]) Inhale by mouth 1 Puff [...] dialysis and will have them run in [place] system today No need for pt to [...] pt from Dr Castanon. Would someone from [facility] scheduling contact me so we can coordinate a date for this pt. Dr Castanon does surgeries at [facility] on Fridays. Please contact me at [phone]. * Telephone Encounter - Monalisa Childers LPN [...] a date these can be done at [facility]( must bedone at the hospital , due [...] and needs D&C. Forward to GI and Weapons Electrical Engineering Officer to see if we can coordinate hospitalization for colonoscopy and D&C. Nursing: Recommend CBC and PT/INR now too please. * Telephone Encounter - Debora Barker RN - 08/06/2022 7:32 AM EDT Please see message below, and also review REFINERY OPERATOR ASSISTANT note of 07/24/22. Pt saw GI about this 04/15/22 please review note And advise on Colonoscopy * Telephone Encounter - RENÉ Barnett - 08/05/2022 2:57 PM EDT Ipno lift needed, if colonoscopy is ordered pt [...] [facility] Sallie Lynne RN [address] [facility] [place] [address] 09/20/2022 Procedure Only Endoscopy Jenny Winston, [address] [place] [address] 10/25/2022 Home Visit [facility] Makeda Parada PA-C [address] [place] [address] Pending Results Name Type Priority Associated Diagnoses Date /Time CBC Lab STAT Rectal bleeding 08/15/2022 9:54 AM EDT PT INR Lab STAT Rectal bleeding 08/15/2022 9:54 AM EDT Scheduled Orders Name Type Priority [...] BLOOD ORDERABLES LABORATORY [place] [address] [facility] [place] [address] documented in this encounter Visit Diagnoses Diagnosis Rectal bleeding- Primary Hemorrhage of rectum and anus documented in this encounter Advance Directives Documents on File Type Date Recorded Patient Elementary Science Teacher Expl anation Power of Vp Talent Management 12/16/2018 10:33 AM Nate r of Vp Talent Management Latest Code Status on File Code [...] Question Answer Comments Discussion of Advance Direct cairn occurred with: Not Discussed Does the patient have a Living Will? No Does the patient have Health Care Power of Vp Talent Management? No Healthcare Agents on File Name Relationship Healthcare Agent Relationshi p Communication Wesley Lee Sonya Spouse Health Care Agent Care Teams Tube Bender Hand Relationship Specialty Start Date End Date Bella Power MD [address] [place] [address] [place] [address] PCP - General Family Medicine 04/02/19 documented as of this encounter
--- OUTSIDE RECORDS SUMMARY | 2023-01-25 20:46 | External Medical Summary | Summary of Care ---
Author Name Unknown Organization [facility] Address [address] [facility] [place] [address] Phone [phone] Care Team Providers Care Food Processing Chemist Name Role Phone Bella Power MD Primary Care Prov ider Reason for Visit * Reason Onset Date Comments Advice 08/02/2022 Bleeding Encounter Details Date Type Department Care Team Description 08/02/2022 Telephone Family Medicine [address] [address] Bella Power MD [address] [place], [place] [address] [address] Advice (Bleeding) Allergies No known active allergiesdocumented as of this encounter (statuses as of 08/22/2022) Medications Medication Sig Dispensed Refills Start Date [...] )Indications:COPD, group B, by GOLD 2017 classification ([facility] [...] MEALS 90 Tablet 5 2 023 Active Pregabalin 100 MG Oral Capsule (Lyrica)Indication s:Primary [...] 90 Tablet 3 2 023 Discontinued(Re fill) Cefuroxime Axetil 250 MG Oral Tablet (Ceftin) 250 mg orally daily 5 Tablet 0 3 023 Discontinued Pregabalin 100 MG Oral Capsule (Lyrica)Indication s:Degenerative disease of nervous system, unspecified (HCC) TAKE 1 CAPSULE BY MOUTH TWICE DAILY TAKE AN EXTRA CAPSULE AFTER DIALYSIS 90 Capsule 0 3 023 Discontinued documented as of this encounter (statuses as of 08/22/2022) Active Problems Problem Noted Date Rectal bleeding [...] as of this encounter (statuses as of 08/22/2022) Resolved Problems Problem Noted Date Resolved Date [...] as of this encounter (statuses as of 08/22/2022) Immunizations Name Administration Dates Next Due COVID-19 [...] dialysis and will have them run in [place] system today No need for pt to [...] this pt. Dr Castanon does surgeries at [facility] on Fridays. Please contact me at [phone]. * Telephone Encounter - Monalisa Childers LPN [...] a date these can be done at [facility]( must bedone at the hospital [...] and needs D&C. Forward to GI and Medical Management Trainer to see if we can coordinate hospitalization for colonoscopy and D&C. Nursing: Recommend CBC and PT/INR now too please. * Telephone Encounter - Debora Barker RN - 08/06/2022 7:32 AM EDT Please see message below, and also review REGULATORY TECHNICIAN note of 07/24/22. Pt saw GI [...] [facility] Sallie Lynne, RN [address] [facility] [place] [address] 09/20/2022 Procedure Only Endoscopy Jenny Winston, DO [address] [place] [address] 10/25/2022 Home Visit [facility] Makeda Parada PA-C [address] [place] [address] Scheduled Procedures Name Priority Associated Diagnoses Date/Ti [...] 15.2 seconds 08/15/2022 10:04 PM EDT [facility] INR 0.9 0.8 - 1.2 08/15/2022 10:04 PM EDT [facility] Blood Venous blood specimen / Unknown Venipuncture / Unknown 08/15/2022 9:54 AM EDT 08/15/2022 9:54 AM EDT Narrative LAB[facility] - 08/15/2022 10:04 PM EDT Warfarin Therapy INR: 2.0-3.0 conventional anticoagulation INR: 2.5-3.5 high intensity anticoagulation Andre Steward MD LAB BLOOD ORDERAB LES [facility] [address] [place] [address] * (ABNORMAL) CBC (08/15/2022 9:54 AM EDT) WBC 9.69 4.00 - 10.80 K/uL 08/15/2022 11:42 PM EDT [facility] RBC 2.84 3.85 - 5.15 M/uL 08/15/2022 11:42 PM EDT LABORATORY [facility] HGB 9.3(L) 12.0 - 15.3 g/dL 08/15/2022 [...] 15.5 % 08/15/2022 11:42 PM EDT [facility] PLT 218 140 - 400 K/uL 08/15/2022 11:42 PM EDT [facility] MPV 10.8 6.6 - 11.1 fL 08/15/2022 11:42 PM EDT [facility] nRBCs 0 <=0 /100 WBCs 08/15/2022 11:42 PM EDT [facility] Blood Venous blood specimen / Unknown Venipuncture / Unknown 08/15/2022 9:54 AM EDT 08/15/2022 9:54 AM EDT Andre Steward MD LAB BLOOD ORDERAB LES [facility] [address] [place], [place] [id number] * (ABNORMAL) PT INR (08/10/2022 1:48 PM EDT) [facility] Prothrombin Time 11.5(L) 11.6 - 15.2 seconds [...] BLOOD ORDERABLES LABORATORY [place] [address] [place] [address] documented in this encounter Visit Diagnoses Diagnosis Rectal bleeding- Primary Hemorrhage of rectum and anus documented in this encounter Advance Directives Documents on File Type Date Recorded Patient Ice Cream Vendor Expl anation Power of Psychologist 12/16/2018 10:33 AM Nate r of Psychologist Latest Code Status on File Code Status [...] the patient have Health Care Power of Psychologist? No Healthcare Agents on File Name Relationship Healthcare Agent Relationshi p Communication Wesley E Eggler Spouse Health Care Agent Care Teams Food Processing Chemist Relationship Specialty Start Date End Date Bella Power MD [address] [place] [address] [place] [address] PCP - General Family Medicine 04/02/19 documented as of this encounter
--- OUTSIDE RECORDS SUMMARY | 2023-01-25 20:46 | External Medical Summary | Summary of Care ---
Author Name Unknown Organization [facility] Address [address] [facility] [place] [address] Phone [phone] Care Team Providers Care Monitoring Tech Name Role Phone Bella Power MD Primary Care Prov ider Reason for Visit * Reason Comments Medication Refill Encounter Details Date Type Department Care Team Description 08/19/2022 Refill Family Medicine [address] [place] [address] Shu Mondragon MD [address] [place] [address] [place], [place] [id number] Degenerative disease of nervous system, unspecified (HCC) Allergies No known active allergiesdocumented as [...] Strip 11 02/03/2018 Active Nebulizers (NEBULIZER COMPRESSOR) MISCIndications:INDEPENDENT LIVING ADVISOR D, group B, by GOLD 2017 classification ([facility]) Inhale via nebulizer. Use as [...] DAILY. 90 Tablet 1 08/21/2022 4 Active Levothyroxine Sodium 125 MCG Oral Tablet (Levoxyl) TAKE 1 TABLET BY MOUTH DAILY AT LEAST 30 MINUTES PRIOR TO FIRST MEAL OF THE DAY OR OTHER MEDICATIONS. 90 Tablet 3 08/23/2021 3 Discontinu ed(Refill) [...] encounter Miscellaneous Notes * Telephone Encounter - Ally Gao [facility] - 08/21/2022 9:36 AM EDT Signed Prescriptions: Disp Refills Levothyroxine Sodium 125 MCG Oral Tablet (*90 Tab*3 Sig: TAKE 1 TABLET BY MOUTH DAILY AT LEAST 30 MINUTES PRIOR TO FIRST MEAL OF THE DAY OR OTHER MEDICATIONS.Authorizing Provider: SHU MONDRAGON User: ALLY GAO JRefused Prescriptions: Disp Refills Pregabalin 100 MG Oral Capsule (Lyrica) 90 Cap*0 Sig: TAKE1 CAPSULE BY MOUTH TWICE DAILY TAKE AN EXTRA CAPSULE AFTER DIALYSISRefused By: ALLY GAO for Refusal: Course of treatment complete documented in this encounter Plan of Treatment Upcoming Encounters Date Type Specialty Care Team Description 09/04/2022 [facility] Visit [facility] Sallie Lynne RN [address] [facility] [place] [id number] 09/20/2022 Procedure Only Endoscopy Jenny Winston, [address] [place] [address] 10/25/2022 [facility] Makeda Parada PA-C [address] [place] [address] Scheduled Procedures Name Priority Associated Diagnoses Date/Ti [...] as of this encounter Visit Diagnoses Diagnosis Degenerative disease of nervous system, unspecified (HCC) documented in this encounter Advance Directives Documents on File Type Date Recorded Patient Vacuum Closing Machine Operator Expl anation Power of Enterprise Systems Administrator 12/16/2018 10:33 AM Nate r of Enterprise Systems Administrator Latest Code Status on File Code Status [...] the patient have Health Care Power of Enterprise Systems Administrator? No Healthcare Agents on File Name Relationship Healthcare Agent Relationshi p Communication Wesley Lee Leighaurora Spouse Health Care Agent Care Teams Monitoring Tech Relationship Specialty Start Date End Date Bella Power MD [address] [place] [address] [place] [address] PCP - General Family Medicine 04/02/19 documented as of this encounter
--- OUTSIDE RECORDS SUMMARY | 2023-01-25 20:46 | External Medical Summary | Summary of Care ---
Author Name Unknown Organization [facility] Address [address] [facility] [place] [address] Phone [phone] Care Team Providers Care Polysomnograph Tech Name Role Phone Bella Power MD Primary Care Prov ider Reason for Visit * Reason Comments Medication Refill Encounter Details Date Type Department Care Team Description 08/19/2022 Refill Family Medicine [address] [place] [address] Shu Mondragon MD [address] [place] [address] [place], [place] [id number] Degenerative disease of nervous system, unspecified (HCC) [...] Strip 11 02/03/2018 Active Nebulizers (NEBULIZER COMPRESSOR) MISCIndications:INTERNET MARKETING INTERN D, group B, by GOLD 2017 classification ([facility]) Inhale via nebulizer. Use as [...] Indications:COPD, group B, by GOLD 2017 classification ([facility] [...] encounter Miscellaneous Notes * Telephone Encounter - RAMONA Sanchez - 08/22/2022 7:59 AM EDT Pt spouse requesting refills for Pregabalin. Upon chart review, medication is listed as discontinued, with discontinuation reason as "None". Please advise if you wish to continue this therapy for thepatient. Pt spouse states this was not supposed to be discontinued and the pt is out of medication Thanks, Chencho Rico Pht Rib Puller Centralized Clinical Pharmacy Services ([facility]PS) (formerly Telepharmacy). 08/22/2022,7:59 AM * Telephone Encounter - Ally Gao RP - 08/21/2022 9:36 AM EDT Signed Prescriptions: Disp Refills Levothyroxine Sodium 125 MCG Oral Tablet (*90 Tab*3 Sig: TAKE 1 TABLET BY MOUTH DAILY AT LEAST 30 MINUTES PRIOR TO FIRST MEAL OF THE DAY OR OTHER MEDICATIONS.Authorizing Provider: SHU MONDRAGON User: ALLY GOA JRefused Prescriptions: Disp Refills Pregabalin 100 MG Oral Capsule (Lyrica) 90 Cap*0 Sig: TAKE1 CAPSULE BY MOUTH TWICE DAILY TAKE AN EXTRA CAPSULE AFTER DIALYSISRefused By: ALLY GAO for Refusal: Course of treatment complete documented in this encounter Plan of Treatment Upcoming Encounters Date Type Specialty Care Team Description 09/04/2022 Home Visit [facility] Sallie Lynne, RN [address] [facility] [place] [address] 09/20/2022 Procedure Only Endoscopy Jenny Winston DO [address] [place] [address] 10/25/2022 Home Visit [facility] Makeda Parada PA-C [address] [place] [address] Scheduled Procedures Name Priority Associated Diagnoses Date/Ti [...] Documents on File Type Date Recorded 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 No Healthcare Agents on File Name Relationship Healthcare Agent Relationshi p Communication Wesley Hassan Spouse Health Care Agent Care Teams Polysomnograph Tech Relationship Specialty Start Date End Date Bella Power MD [address] [place] [address] [place] [address] PCP - General Family Medicine 04/02/19 documented as of this encounter
--- OUTSIDE RECORDS SUMMARY | 2023-01-25 20:46 | External Medical Summary | Summary of Care ---
Author Name Unknown Organization [facility] Address [address] [facility] [place] [address] Phone [phone] Care Team Providers Care Health Clinician Name Role Phone Bella Power MD Primary Care Prov ider Reason for Visit * Reason Comments Medication Refill Encounter Details Date Type Department Care Team Description 08/19/2022 Refill Family Medicine [address] [place] [address] Shu Mondragon MD [address] [place] [address] [place], [place] [id number] Degenerative disease of nervous system, unspecified (HCC); Primary parkinsonism (HCC) Allergies No known active [...] Strip 11 02/03/2018 Active Nebulizers (NEBULIZER COMPRESSOR) MISCIndications:CASING MACHINE OPERATOR D, group B, by GOLD 2017 classification ([facility]) Inhale via nebulizer. Use as directed. [...] Indications:COPD, group B, by GOLD 2017 classification ([facility]) Inhale by mouth 1 Puff in [...] encounter Miscellaneous Notes * Addendum Note - Laurie Bautista LPN - 08/22/2022 8:41 AM EDTAddended by: LAURIE BAUTISTA on: 08/22/2022 08:41 AM Modules accepted: Orders * Telephone Encounter - RAMONA Sanchez - 08/22/2022 7:59 AM EDT Pt spouse requesting refills for Pregabalin. Upon chart review, medication is listed as discontinued, with discontinuation reason as "None". Please advise if you wish to continue this therapy for thepatient. Pt spouse states this was not supposed to be discontinued and the pt is out of medication Thanks, Chencho Rico Pht Hazardous Waste Remover Centralized Clinical Pharmacy Services ([facility]PS) (formerly Telepharmacy). 08/22/2022,7:59 AM * Telephone Encounter - Ally Gao [facility] - 08/21/2022 9:36 AM EDT Signed Prescriptions: [...] [facility] Sallie Lynne, RN [address] [facility] [place] [address] 09/20/2022 Procedure Only Endoscopy Jenny Winston DO [address] [place] [address] 10/25/2022 Home Visit [facility] Makeda Parada PA-C [address] [place] [address] Scheduled Procedures Name Priority Associated Diagnoses Date/Ti [...] Degenerative disease of nervous system, unspecified (HCC) Primary parkinsonism (HCC) Paralysis agitans documented in this encounter Advance Directives Documents on File Type Date Recorded Patient Wrapping Clerk Expl anation Power of Licensed Marine Engineer 12/16/2018 10:33 AM Nate r of Licensed Marine Engineer Latest Code Status on File Code [...] the patient have Health Care Power of Licensed Marine Engineer? No Healthcare Agents on File Name Relationship Healthcare Agent Relationshi p Communication Wesley E Sonya Spouse Health Care Agent Care Teams Health Clinician Relationship Specialty Start Date End Date Bella Power MD [address] [place] [address] [place] [address] PCP - General Family Medicine 04/02/19 documented as of this encounter
--- OUTSIDE RECORDS SUMMARY | 2023-01-25 20:47 | External Medical Summary | Summary of Care ---
Author Name Unknown Organization [facility] Address [address] [place] [facility] [place] [address] Phone [phone] Care Team Providers Care Gin Clerk Name Role Phone Bella Power MD Primary Care Prov ider Encounter Details Date Type Department Care Team Description 08/13/2022 Telephone Nephrology [address] [place] [phone] Erica Tobar MD [address] [place] [address] [place] [address] Allergies No known active allergiesdocumented as of [...] Strip 11 8 Active Nebulizers (NEBULIZER COMPRESSOR) MISCIndications:WINDOWS AND DOORS INSTALLER D, group B, by GOLD 2017 classification [...] AM EDT According to telephone encounter 08/02- HEALTH ANALYST are coordinating with GI to have appointment [...] always a reliable historian. Unremarkable EGD 06/2022 [facility] Saw GI 03/2022 w/ consideration if normal [...] [facility] Sallie Lynne, STEFFEN [address] [facility] [place] [address] 09/20/2022 Procedure Only Endoscopy Suvock, Jenny T, DO [address] [place] [address] 10/25/2022 [facility] Tal, Makeda Orona PA-C [address] [place] [address] Scheduled Procedures Name Priority Associated Diagnoses Date/Ti [...] Documents on File Type Date Recorded Patient Oncology Rep Expl anation Power of Farm Consultant 12/16/2018 10:33 AM Nate r of Farm Consultant Latest Code Status on File Code Status [...] the patient have Health Care Power of Farm Consultant? No Healthcare Agents on File Name Relationship Healthcare Agent Relationshi p Communication Wesley E Sonya Spouse Health Care Agent Care Teams Gin Clerk Relationship Specialty Start Date End Date Bella Power MD [address] [place] [address] [place] [address] PCP - General Family Medicine 04/02/19 documented as of this encounter
--- OUTSIDE RECORDS SUMMARY | 2023-01-25 20:47 | External Medical Summary | Summary of Care ---
Author Name Unknown Organization [facility] Address [address] [facility] [place] [address] Phone [phone] Care Team Providers Care Laboratory Miller Name Role Phone Bella Power MD Primary Care Prov ider Encounter Details Date Type Department Care Team Description 08/13/2022 Telephone Ne[address]rology [address] [place] [phone] Erica Tobar MD [address] [facility] [place] [address] Allergies No known active allergiesdocumented as of this encounter (statuses as of 08/13/2022) Medications Medication Sig Dispensed Refills Start Date [...] 1 Each 1 11/27/2018 Active DIURETIC TITRATION PLANIndications:Package Line Relief Operator sandro heart failure with preserved ejection [...] B, by GOLD 2017 classification ([facility]) Inhale by mouth 1 Puff in the [...] the evening. 180 Tablet 1 04/15/2022 Active Cefuroxime Axetil 250 MG Oral Tablet (Ceftin) 250 mg orally daily 5 Tablet 0 05/26/2022 Active Lidocaine-Prilocaine 2.5-2.5 % External Cream (Emla) [...] mouth in the morning. 0 05/16/2022 Active Pregabalin 100 MG Oral Capsule (Lyrica)Indications: Degenerative disease of nervous system, unspecified (HCC) TAKE 1 CAPSULE BY MOUTH TWICE DAILY TAKE AN EXTRA CAPSULE AFTER DIALYSIS 90 Capsule 0 06/18/2022 3 Active Docusate Sodium 100 MG Oral Capsule (Colace)Indications: Chronic idiopathic constipation TAKE ONE CAPSULE BY MOUTH IN THE MORNING AND ONE CAPSULE BEFORE BEDTIME 60 Capsule 5 08/06/2022 4 Active documented as of this encounter (statuses as of 08/13/2022) Active Problems Problem Noted Date Rectal bleeding [...] as of this encounter (statuses as of 08/13/2022) Resolved Problems Problem Noted Date Resolved Date [...] as of this encounter (statuses as of 08/13/2022) Immunizations Name Administration Dates Next Due COVID-19 mRNA, LNP-s, No Pre serve, 2-Dose Series (Pfizer) 01/02/2021,06/21/2020,05/24/2020 Covid-19 Mrna, Lnp-s, No Pre serve, Booster (Moderna) 07/23/2021 Covid-19, Mrna, Lnp-s, Pf, B ivalent Booster, 50 Mcg, IM, 12 yrs and above [...] always a reliable historian. Unremarkable EGD 06/2022 [facility] Saw GI 03/2022 w/ consideration if normal [...] Encounters Date Type Specialty Care Team Description 08/14/2022 Home Visit [facility] Sallie Lynne RN [address] [facility] [place] [address] 10/25/2022 Home Visit [facility] Makeda Parada PA-C [address] [place] [address] Scheduled Procedures Name Priority Associated Diagnoses Date/Ti me COLONOSCOPY FLEXIBLE PROXIMA L DIAGNOSTIC Recall Encounter for screening colonoscopy Health Maintenance Due Date Last Done Comments Zoster Vaccines (1 of 2) 12/18/2011 10/23/2011 Depression Screening, Annual for Pts 12 and Over 01/22/2020 01/21/2019 O2 ASSESSMENT COMPLETED IN P AST YEAR FOR COPD 08/10/2023 08/09/2022 TSH 08/11/2023 08/10/2022, 05/15, 08/21/2020, Additional history exists Colonoscopy Discontinued 11/27/2015, 11/15, 10/21/2005 Colorectal Cancer Screening Discontinued Influenza Vaccine (FLU shot) Completed , 05/31/2021, 11/16/2019, Additional history exists COVID-19 Vaccine Completed 01/17/2022, 11/2021, 01/02/2021, Additional history exists Cologuard Discontinued Fecal Occult Blood Test Discontinued Sigmoidoscopy Discontinued documented as of this encounter Medical Devices Not on filedocumented as of this encounter Advance Directives Documents on File Type Date Recorded Patient Resource Teacher Expl anation Power of Leather Softener 12/16/2018 10:33 AM Nate r of Leather Softener Latest Code Status on File Code Status [...] the patient have Health Care Power of Leather Softener? No Healthcare Agents on File Name Relationship Healthcare Agent Relationshi p Communication Wesley Hassan Spouse Health Care Agent Care Teams Laboratory Miller Relationship Specialty Start Date End Date Bella Power MD [address] [place] [address] [place] [address] PCP - General Family Medicine 04/02/19 documented as of this encounter
--- OUTSIDE RECORDS SUMMARY | 2023-01-25 20:47 | External Medical Summary | Summary of Care ---
Author Name Unknown Organization [facility] Address [address] [place] [facility] [place] [place] [address] Phone [phone] Care Team Providers Care Pre K Special Education Teacher Name Role Phone Bella Power MD Primary Care Prov ider Encounter Details Date Type Department Care Team Description 08/13/2022 Telephone [address] [place] [phone] Erica Tobar MD [address] [place] [address] [place] [address] Allergies No known active allergiesdocumented as of [...] Strip 11 8 Active Nebulizers (NEBULIZER COMPRESSOR) MISCIndications:DIE FITTER D, group B, by GOLD 2017 classification ([facility]) Inhale via nebulizer. Use as directed. 1 [...] group B, by GOLD 2017 classification ([facility]) Inhale by mouth 1 Puff in [...] AM EDT According to telephone encounter 08/02- DISPUTE COORDINATOR are coordinating with GI to have appointment [...] a reliable historian. Unremarkable EGD 06/2022 [facility] Saw GI 03/2022 w/ consideration if normal [...] [facility] Sallie Lynne, STEFFEN [address] [facility] [place] [address] 09/20/2022 Procedure Only Endoscopy Suvock, Jenny T, DO [address] [place] [address] 10/25/2022 Home [facility] Tal, Makeda Orona PA-C [address] [place] [address] Scheduled Procedures Name Priority Associated Diagnoses Date/Ti [...] Documents on File Type Date Recorded Patient Bill Peddler Expl anation Power of Photo Tech 12/16/2018 10:33 AM Nate r of Photo Tech Latest Code Status on File Code Status [...] the patient have Health Care Power of Photo Tech? No Healthcare Agents on File Name Relationship Healthcare Agent Relationshi p Communication Wesley E Sonya Spouse Health Care Agent Care Teams Pre K Special Education Teacher Relationship Specialty Start Date End Date Bella Power MD [address] [place] [address] [place] [address] PCP - General Family Medicine 04/02/19 documented as of this encounter
--- OUTSIDE RECORDS SUMMARY | 2023-01-25 20:47 | External Medical Summary | Summary of Care ---
Author Name Unknown Organization [facility] Address [address] [facility] [place] [address] Phone [phone] Care Team Providers Care Flight Kitchen Manager Name Role Phone Bella Power MD Primary Care Prov ider Reason for Visit * Reason Onset Date Comments Advice 08/02/2022 Bleeding Encounter Details Date Type Department Care Team Description 08/02/2022 Telephone Family Medicine [address] [phone] Bella Power MD [address] [place], [place] [address] [address] Advice (Bleeding) Allergies No known active allergiesdocumented as of this encounter (statuses as of 08/14/2022) Medications Medication Sig Dispensed Refills Start Date End Date Status ONETOUCH DELICA LANCETS 33G MISC Up to 4 times daily 100 Each 6 5 Active Glucose Blood (ONETOUCH ULTRA BLUE) STRP Use as directed 4 times a day as needed (Diabetes). Use up to four times a day as directed 100 Strip 11 8 Active Nebulizers (NEBULIZER COMPRESSOR) MISCIndications:COMPUTATIONAL PHYSICIST D, group B, by GOLD 2017 classification [...] as of this encounter (statuses as of 08/14/2022) Active Problems Problem Noted Date Rectal bleeding [...] as of this encounter (statuses as of 08/14/2022) Resolved Problems Problem Noted Date Resolved Date [...] as of this encounter (statuses as of 08/14/2022) Immunizations Name Administration Dates Next Due COVID-19 [...] Dr Castanon does surgeries at [facility] on Fridays. Please contact me at [phone]. * Telephone Encounter - Monalisa Childers LPN [...] a date these can be done at [facility]( must bedone at the hospital , due [...] and needs D&C. Forward to GI and Blackjack Dealer to see if we can coordinate hospitalization for colonoscopy and D&C. Nursing: Recommend CBC and PT/INR now too please. * Telephone Encounter - Debora Barker RN - 08/06/2022 7:32 AM EDT Please see message below, and also review LUTE PACKER OR APPLIER note of 07/24/22. Pt saw GI about [...] [facility] Sallie Lynne, RN [address] [place] [address] 09/20/2022 Procedure Only Endoscopy Jenny Winston, [address] [place] [address] 10/25/2022 Home [facility] Makeda Parada PA-C [address] [place] [address] Scheduled Procedures Name Priority Associated Diagnoses Date/Ti [...] ORDERABLES LABORATORY [facility]CE 57-10 [address] [place] [address] documented in this encounter Visit Diagnoses Diagnosis Rectal bleeding- Primary Hemorrhage of rectum and anus documented in this encounter Advance Directives Documents on File Type Date Recorded Patient Roll On Worker Expl anation Power of Cold Press Loader 12/16/2018 10:33 AM Nate r of Cold Press Loader Latest Code Status on File Code [...] the patient have Health Care Power of Cold Press Loader? No Healthcare Agents on File Name Relationship Healthcare Agent Relationshi p Communication Wesley Hassan Spouse Health Care Agent Care Teams Flight Kitchen Manager Relationship Specialty Start Date End Date Bella Power MD [address] [place] [address] [place] [id number] PCP - General Family Medicine 04/02/19 documented as of this encounter
--- OUTSIDE RECORDS SUMMARY | 2023-01-25 20:47 | External Medical Summary ---
Author Name Unknown Address Unknown Organization K01:[facility] [place] [address] [place] [address] Laboratory Report Ordering Provider Test Date Status NICHELLE POWELL 08/15/2022 09:54:23 Final Warfarin Therapy
INR: 2 .0-3.0 conventional anticoagulation
INR: 2.5- 3.5 high intensity anticoagulation Observation Date Value Abnormality Reference (Units ) Status PT 08/15/2022 09:54:23 12.2 11.6-15.2 (seconds) Final INR 08/15/2022 09:54:23 0.9 0.8-1.2 Final Performing Location [facility] [address] [place] [address]
--- OUTSIDE RECORDS SUMMARY | 2023-01-25 20:47 | External Medical Summary | Summary of Care ---
Author Name Unknown Organization [facility] Address [address] [place] [facility] [place] [address] Phone [phone] Care Team Providers Care Ems Driver Name Role Phone Bella Power MD Primary Care Prov ider Encounter Details Date Type Department Care Team Description 08/13/[address] [place] [phone] Erica Tobar MD 200 [facility] [place] [address] Allergies No known active allergiesdocumented as of [...] 1 Each 1 11/27/2018 Active DIURETIC TITRATION PLANIndications:Investigation Officer sandro heart failure with preserved ejection [...] by GOLD 2017 classification ([facility]) Inhale by mouth 1 Puff in the [...] AM EDT According to telephone encounter 08/02- MANAGER WASTEWATER are coordinating with GI to have appointment [...] always a reliable historian. Unremarkable EGD 06/2022 [facility] Saw GI 03/2022 w/ consideration if normal [...] [facility] Sallie Lynne RN [address] [facility] [place] [address] 10/25/2022 Home [facility] Makeda Parada PA-C [address] [place] [address] Scheduled Procedures Name Priority Associated Diagnoses Date/Ti [...] Documents on File Type Date Recorded Patient Ammonia Still Operator Expl anation Power of Char Conveyor Tender Cellar 12/16/2018 10:33 AM Nate peralta of Char Conveyor Tender Cellar Latest Code Status on File Code Status [...] the patient have Health Care Power of Char Conveyor Tender Cellar? No Healthcare Agents on File Name Relationship Healthcare Agent Relationshi p Communication Wesley Hassan Spouse Health Care Agent Care Teams Ems Driver Relationship Specialty Start Date End Date Bella Power MD [address] [place] [address] [place] [address] PCP - General Family Medicine 04/02/19 documented as of this encounter
--- OUTSIDE RECORDS SUMMARY | 2023-01-25 20:47 | External Medical Summary | Summary of Care ---
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 Unremarkable EGD 06/2022 [facility] Saw GI 03/2022 w/ consideration if normal [...] 08/14/2022 Home Visit [facility] Sallie Lynne, RN [address] [place] [address] 10/25/2022 Home Visit [facility] Makeda Parada PA-C [address] [place] [address] Scheduled Procedures Name Priority Associated Diagnoses Date/Ti [...] Documents on File Type Date Recorded Patient Advertising Sales Manager Expl anation Power of Reactor Technician 12/16/2018 10:33 AM Nate r of Reactor Technician Latest Code Status on File Code [...] the patient have Health Care Power of Reactor Technician? No Healthcare Agents on File Name Relationship Healthcare Agent Relationshi p Communication Wesley Lee Leighaurora Spouse Health Care Agent Care Teams Ophthalmic Medical Assistant Relationship Specialty Start Date End Date Bella Power MD [address] [place] [address] [place] [address] PCP - General Family Medicine 04/02/19 documented as of this encounter
--- OUTSIDE RECORDS SUMMARY | 2023-01-25 20:47 | External Medical Summary | Summary of Care ---
Author Name Unknown Organization [facility] Address [address] [facility] [place] [address] Phone [phone] Care Team Providers Care Wood Casket Assembler Name Role Phone Bella Power MD Primary Care Prov ider Reason for Visit * Reason Onset Date Comments Advice 08/02/2022 Bleeding Encounter Details Date Type Department Care Team Description 08/02/2022 Telephone Family Medicine [address] [phone] Bella Power MD [address] [place], [place] [address] [address] Advice (Bleeding) Allergies No known active [...] Strip 11 8 Active Nebulizers (NEBULIZER COMPRESSOR) MISCIndications:DOCUMENT 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 Use as directed. 1 [...] Indications:COPD, group B, by GOLD 2017 classification ([facility] [...] Telephone Encounter - Erica Tobar MD - 08/15/2022 8:44 AM EDT Getting PT/INR and CBC today on dialysis and will have them run in [employer] system today No need for pt to make extra trip/stop for blood draw * Telephone Encounter - RENÉ Barnett - [...] this pt. Dr Castanon does surgeries at [facility] on Fridays. Please contact me at [phone]. * Telephone Encounter - Monalisa Childers LPN [...] a date these can be done at [facility]( must bedone at the hospital , [...] and needs D&C. Forward to GI and Fish Warden to see if we can coordinate hospitalization for colonoscopy and D&C. Nursing: Recommend CBC and PT/INR now too please. * Telephone Encounter - Debora Barker RN - 08/06/2022 7:32 AM EDT Please see message below, and also review BRIAR SHOP SUPERVISOR note of 07/24/22. Pt saw GI about [...] [facility] Sallie Lynne, STEFFEN [address] [place] [address] 09/20/2022 Procedure Only Endoscopy Jenny Winston, [address] [place] [address] 10/25/2022 Home Visit [facility] Makeda Parada PA-C [address] [place] [address] Scheduled Procedures Name Priority Associated Diagnoses Date/Ti [...] - 1.2 08/10/2022 2:43 PM EDT LAB[facility]ORY [facility] 57-10 Blood Venous blood specimen / Unknown Venipuncture / Unknown 08/10/2022 1:48 PM EDT 08/10/2022 1:48 PM EDT Narrative [facility]ORY [facility] 57-10 - 08/10/2022 2:43 PM EDT Warfarin Therapy INR: 2.0-3.0 conventional anticoagulation INR: 2.5-3.5 high intensity anticoagulation Bella Rubio MD LAB BLOOD ORDERABLES LAB[facility] [place] 57Jose[address] [place] [address] documented in this encounter Visit Diagnoses Diagnosis Rectal bleeding- Primary Hemorrhage of rectum and anus documented in this encounter Advance Directives Documents on File Type Date Recorded Patient Scheme Technician Expl anation Power of Applications Engineering Manager 12/16/2018 10:33 AM Nate r of Applications Engineering Manager Latest Code Status on File Code [...] the patient have Health Care Power of Applications Engineering Manager? No Healthcare Agents on File Name Relationship Healthcare Agent Relationshi p Communication Wesley Hassan Spouse Health Care Agent Care Teams Wood Casket Assembler Relationship Specialty Start Date End Date Bella Power MD [address] [place] [address] [place] [address] PCP - General Family Medicine 04/02/19 documented as of this encounter
--- OUTSIDE RECORDS SUMMARY | 2023-01-25 20:47 | External Medical Summary | Summary of Care ---
Author Name Unknown Organization [facility] Address [address] [place] [facility] [place] [address] Phone [phone] Care Team Providers Care Elementary Spanish Teacher Name Role Phone Bella Power MD Primary Care Prov ider Encounter Details Date Type Department Care Team Description 08/13/2022 Telephone [address] [place] [phone] Erica Tobar MD 200 [facility] [place] [address] Allergies No known active allergiesdocumented as of [...] 1 Each 1 11/27/2018 Active DIURETIC TITRATION PLANIndications:Call Center Supervisor sandro heart failure with preserved ejection [...] AM EDT According to telephone encounter 08/02- ADMINISTRATION PROFESSIONAL are coordinating with GI to have appointment [...] always a reliable historian. Unremarkable EGD 06/2022 [facility] Saw GI 03/2022 w/ consideration [...] [facility] Sallie Lynne RN [address] [facility] [place] [address] 10/25/2022 Home Visit [facility] Makeda Parada PA-C [address] [place] [address] Scheduled Procedures Name Priority Associated Diagnoses Date/Ti [...] Documents on File Type Date Recorded Patient Hogshead Liner Expl anation Power of Byproducts Supervisor 12/16/2018 10:33 AM Nate r of Byproducts Supervisor Latest Code Status on File Code [...] the patient have Health Care Power of Byproducts Supervisor? No Healthcare Agents on File Name Relationship Healthcare Agent Relationshi p Communication Wesley Hassan Spouse Health Care Agent Care Teams Elementary Spanish Teacher Relationship Specialty Start Date End Date Bella Power MD [address] [place] [address] [place] [address] PCP - General Family Medicine 04/02/19 documented as of this encounter
--- OUTSIDE RECORDS SUMMARY | 2023-01-25 20:47 | External Medical Summary ---
Author Name Unknown Address Unknown Organization K01:[facility] [place] - [address] [facility] [address] [facility] [address] Laboratory Report Ordering Provider Test Date Status NICHELLE POWELL 08/15/2022 09:54:23 Final Observation Date Value Abnormality Reference (Units ) Status WBC, Total 08/15/2022 09:54:23 9.69 4.00-10.80 (K/uL) Final RBC 08/15/2022 09:54:23 2.84 3.85-5.15 (M/uL) Final Hemoglobin 08/15/2022 09:54:23 9.3 Below low normal 12.0-15.3 (g/dL) Final HCT 08/15/2022 09:54:23 31.5 Below low normal 36.0-45.2 (%) Final MCV 08/15/2022 09:54:23 110.9 81.5-97.5 (fL) Final MCH 08/15/2022 09:54:23 32.7 27.0-34.0 (pg) Final MCHC 08/15/2022 09:54:23 29.5 32.0-36.0 (g/dL) Final RDW 08/15/2022 09:54:23 23.1 11.5-15.5 (%) Final Platelets 08/15/2022 09:54:23 218 140-400 (K/uL) Final MPV 08/15/2022 09:54:23 10.8 6.6-11.1 (fL) Final Nucleated erythrocytes/100 leukocytes [Ratio] in Blood by Automated count 08/15/2022 09:54:23 0 <=0 (/100 WBCs) Final Performing Location [facility] - [address] [place] [address]
--- OUTSIDE RECORDS SUMMARY | 2023-01-25 20:47 | External Medical Summary | Summary of Care ---
Author Name Unknown Organization [facility] Address [address] [facility] [place] [address] Phone [phone] Care Team Providers Care Progressive Assembler And Fitter Name Role Phone Bella Power MD Primary Care Prov ider Reason for Visit * Reason Comments Outpatient Testing Encounter Details Date Type Department Care Team Description 08/10/2022 Laboratory Laboratory, [facility] [address] [facility] [place] [address] [facility] [address] 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HCC); Rectal bleeding; Fatigue, unspecified type; Hypothyroidism, unspecified type Allergies No known active allergiesdocumented as [...] directed. 1 Each 11/27/2018 Active DIURETIC TITRATION PLANIndications:Stationary Steam Engineer sandro heart failure with preserved ejection [...] ndications:COPD, group B, by GOLD 2017 classification ([facility]) Inhale by mouth 1 Puff [...] mRNA, LNP-s, No Pre serve, 2-Dose Series (inEarth) 01/02/2021,06/21/2020,05/24/2020 Covid-19 Mrna, Lnp-s, No Pre serve, [...] as of this encounter Miscellaneous Notes * Result Encounter Note - Makeda Parada PA-C - 08/13/2022 5:48 PM EDT Mild leukocytosis. Hgb falling. D/w team members. Trying to facilitate colonoscopy and hysteroscopy. Pt has been having melena documented in this encounter Plan of Treatment Upcoming Encounters Date Type Specialty Care Team Description 08/14/2022 Home Visit [facility] Sallie Lynne RN [address] [facility] [place] [address] 10/25/2022 Home Visit [facility] Makeda Parada PA-C [address] [facility] [place] [address] Scheduled Procedures Name Priority Associated Diagnoses Date/Ti [...] Date/Time Associated Diagnosis Comments DIFFERENTIAL, AUTOMATED Routine 08/10/2022 1:48 PM EDT Fatigue, unspecified type TSH WITH FREE T4 IF INDICATED Routine 08/10/2022 1:48 PM EDT 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HCC) COMPREHENSIVE METABOLIC PANEL Routine 08/10/2022 1:48 PM EDT Fatigue, unspecified type CBC WITH WBC DIFFERENTIAL Routine 08/10/2022 1:48 PM EDT Fatigue, unspecified type PT INR Routine 08/10/2022 1:48 PM EDT Rectal bleeding CBC Routine 08/10/2022 1:48 PM EDT Fatigue, unspecified type DIFFERENTIAL, TECHNOLOGIST REVIEW Routine 08/10/2022 1:48 PM EDT Fatigue, unspecified type documented in this encounter Results * (ABNORMAL) DIFFERENTIAL, TECHNOLOGIST REVIEW (08/10/2022 1:48 PM EDT) [facility] WBC 10.94(H) 4.00 - 10.80 K/uL 08/10/2022 3:18 PM EDT [facility] [place] [facility] Neutrophils % 77.0(H) 40.0 - 75.0 % 08/10/2022 3:18 PM EDT [facility] [place] [facility] Lymphocytes % 9.0(L) 18.0 - 42.0 % 08/10/2022 3:18 PM EDT [facility] [place] [facility] Monocytes % 4.0 1.0 - 11.0 % 08/10/2022 3:18 PM EDT [facility] [place] [facility] Eosinophils % 9.0(H) 0.0 - 6.0 % 08/10/2022 3:18 PM EDT [facility] [place] [facility] Metamyelocytes % 1.0(H) <=0.0 % 08/11/19 3:18 PM EDT [facility] [place] [facility] Absolute Neutrophils 8.42(H) 1.80 - 7.70 K/uL 08/10/2022 3:18 PM EDT [facility] [place] [facility] Absolute Lymphocytes 0.98(L) 1.00 - 4.80 K/uL 08/10/2022 3:18 PM EDT [facility] [place] [facility] Absolute Monocytes 0.44 0.00 - 1.10 K/uL 08/10/2022 3:18 PM EDT [facility] [place] [facility] Absolute Eosinophils 0.98(H) 0.00 - 0.70 K/uL 08/10/2022 3:18 PM EDT [facility] [place] [facility] Absolute Metamyelocytes 0.11(H) <=0.00 K/uL 08/10/2022 3:18 PM EDT [facility] [place] [facility] nRBCs 2(H) <=0 /100 WBCs 08/10/2022 3:18 PM EDT [facility] [place] [facility] Blood Venous blood specimen / Unknown Venipuncture / Unknown 08/10/2022 1:48 PM EDT 08/10/2022 1:48 PM EDT Makeda Parada PA-C LAB BLOOD ORD ERABLES [facility] [place] [facility] [address] [place] [address] * DIFFERENTIAL, AUTOMATED (08/10/2022 1:48 PM EDT) Blood Venous blood specimen / Unknown Venipuncture / Unknown 08/10/2022 1:48 PM EDT 08/10/2022 1:48 PM EDT Makeda Parada PA-C LAB BLOOD ORD ERABLES [facility] [place] [facility] [address] [place] [facility] [place] [address] * (ABNORMAL) CBC (08/10/2022 1:48 PM EDT) WBC 10.94(H) 4.00 - 10.80 K/uL 08/10/2022 3:18 PM EDT [facility] [place] [facility] RBC 2.98 3.85 - 5.15 M/uL 08/10/2022 3:18 PM EDT [facility] [place] [facility] HGB 9.7(L) 12.0 - 15.3 g/dL 08/10/2022 3:18 PM EDT [facility] [place] [facility] HCT 31.8(L) 36.0 - 45.2 % 08/10/2022 3:18 PM EDT [facility] [place] [facility] MCV 106.7 81.5 - 97.5 fL 08/10/2022 3:18 PM EDT [facility] [place] [facility] MCH 32.6 27.0 - 34.0 pg 08/10/2022 3:18 PM EDT [facility] [place] [facility] MCHC 30.5 32.0 - 36.0 g/dL 08/10/2022 3:18 PM EDT [facility] [place] [facility] RDW 22.2 11.5 - 15.5 % 08/10/2022 3:18 PM EDT [facility] [place] [facility] PLT 313 140 - 400 K/uL 08/10/2022 3:18 PM EDT [facility] [place] [facility]10 MPV 10.4 6.6 - 11.1 fL 08/10/2022 3:18 PM EDT [facility] [place] [facility] Blood Venous blood specimen / Unknown Venipuncture / Unknown 08/10/2022 1:48 PM EDT 08/10/2022 1:48 PM EDT Makeda Parada PA-C LAB BLOOD ORD ERABLES [facility] [place] [address] [facility] [place] [address] * (ABNORMAL) COMPREHENSIVE METABOLIC PANEL (08/10/2022 1:48 PM EDT) BUN 12 6 - 20 mg/dL 08/10/2022 10:05 PM EDT [facility] Creatinine 3.3(H) 0.5 - 1.0 mg/dL 08/10/2022 10:05 PM EDT [facility] Estimated Glomerular Filtration Rate 14(L) >=60 mL/min 08/10/2022 10:05 PM EDT [facility] Comment:eGFR is calculated b ased on the CKD-EPI 2020 equation Sodium 138 135 - 146 mmol/L 08/10/2022 10:05 PM EDT [facility] Potassium 3.8 3.5 - 5.1 mmol/L 08/10/2022 10:05 PM EDT [facility] Chloride 94(L) 98 - 107 mmol/L 08/10/2022 10:05 PM EDT [facility] CO2 29 22 - 32 mmol/L 08/10/2022 10:05 PM EDT [facility] Anion Gap 15 7 - 15 mmol/L 08/10/2022 10:05 PM EDT [facility] Glucose 156(H) 70 - 120 mg/dL 08/10/2022 10:05 PM EDT [facility] Albumin 4.6 3.8 - 5.0 g/dL 08/10/2022 10:05 PM EDT [facility] AST 31 10 - 35 U/L 08/10/2022 10:05 PM EDT [facility] Alkaline Phosphatase 104 35 - 130 U/L 08/10/2022 10:05 PM EDT [facility] Bilirubin, Total 0.2 <=1.2 mg/dL 08/10/2022 10:05 PM EDT [facility] Calcium 9.4 8.4 - 10.2 mg/dL 08/10/2022 10:05 PM EDT [facility] Protein 6.9 6.0 - 8.3 g/dL 08/10/2022 10:05 PM EDT LAB[facility] C ALT 21 10 - 35 U/L 08/10/2022 10:05 PM EDT LABORATORY C Blood Venous blood specimen / Unknown Venipuncture / Unknown 08/10/2022 1:48 PM EDT 08/10/2022 1:48 PM EDT Makeda Parada PA-C LAB BLOOD ORD ERABLES [facility] [address] [place] [address] * (ABNORMAL) PT INR (08/10/2022 1:48 PM EDT) [facility] Prothrombin Time 11.5(L) 11.6 - 15.2 seconds [...] BLOOD ORDERABLES [facility] [place] [facility] [address] [place] [address] * TSH WITH FREE T4 IF INDICATED (08/10/2022 1:48 PM EDT) TSH 1.56 0.27 - 4.20 uIU/mL 08/10/2022 10:33 PM EDT [facility] Blood Venous blood specimen / Unknown Venipuncture / Unknown 08/10/2022 1:48 PM EDT 08/10/2022 1:48 PM EDT Bella Rubio MD LAB BLOOD ORDERABLES [facility] [address] [place] [address] documented in this encounter Visit Diagnoses Diagnosis 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HCC) Rectal bleeding Hemorrhage of rectum and anus Fatigue, unspecified type Hypothyroidism, unspecified type documented in this encounter Advance Directives Documents on File Type Date Recorded Patient Enterprise Systems Administrator Expl anation Power of Infection Control Specialist 12/16/2018 10:33 AM Nate r of Infection Control Specialist Latest Code Status on File Code [...] the patient have Health Care Power of Infection Control Specialist? No Healthcare Agents on File Name Relationship Healthcare Agent Relationshi p Communication Wesley Hassan Spouse Health Care Agent Care Teams Progressive Assembler And Fitter Relationship Specialty Start Date End Date Bella Power MD [address] [place] [address] [place] [address] PCP - General Family Medicine 04/02/19 documented as of this encounter
--- OUTSIDE RECORDS SUMMARY | 2023-01-25 20:47 | External Medical Summary | Summary of Care ---
Author Name Unknown Organization [facility] Address [address] [facility] [address] Phone [phone] Care Team Providers Care Electrical Tester Battery Name Role Phone Bella Power MD Primary Care Prov ider Reason for Visit * Reason Comments [facility]: Maintenance return Encounter Details Date Type Department Care Team Description 08/14/2022 Home Visit [facility], [facility] [address] [facility] [place] [address] Angela Jeronimo, RN [address] [facility] [place] [address] Allergies No known active allergiesdocumented as of [...] Strip 11 8 Active Nebulizers (NEBULIZER COMPRESSOR) MISCIndications: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, 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, by GOLD [...] Indications:COPD, group B, by GOLD 2017 classification ([facility]) Inhale by mouth 1 Puff [...] mRNA, LNP-s, No Pre serve, 2-Dose Series (Blurb) 01/02/2021,06/21/2020,05/24/2020 Covid-19 Mrna, Lnp-s, No Pre serve, [...] Sign Reading Time Taken Comments Blood Pressure 106/50 08/14/2022 11:25 AM EDT Pulse 58 08/14/2022 11:25 AM EDT Temperature 36.7 C (98 F) 08/14/2022 11:25 AM EDT Respiratory Rate 18 08/14/2022 11:25 AM EDT Oxygen Saturation 94% 08/14/2022 11:25 AM EDT Inhaled Oxygen Concentration - - [...] Notes * Angela Jeronimo RN - 08/14/2022 9:50 AM EDT [facility] 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 Visit Date: 08/14/2022 Time: 9:50 AM Name: Kami Hassan : 1945 Situation: return Background: Parkinson's, CKD 5, CHF, COPD, DM, H/o UTI's Assessment: Sitting in electric scooter in living room, wearing nightgown Feeling, ''okay'' today Energy level at baseline assists with all transfers along with pt using T bar Denies falls Denies sob Using CPAP nightly at least 8 hours and for naps which can be 3-6 hours Had labs drawn last week, did not provide urine specimen with annoyed tone in voice stated, ''they wouldn't pick her up and put her on the toilet toget the urine, they expected me to do it, the justine who wrenched his back taking care of her, I won'tdo it any more for them'' Pt unable to void during visit Pt and agreed to collect at home and take to lab Denies dysuria, fevers, chills, foul smelling urine Has two pressure ulcers: L<R had changed dressing prior to visit and declined to have me look at them Denies s/s infection as discussed Cleansing daily with mild soap, water Applying Calmoseptine to both areas and keeping covered with dsd Reports both are much improved from most recent hospitalization Pt has multiple pressure relief cushions but refuses to use at times Sitting on thin, soft blanket during visit, ''that's what she wanted and I'm not arguing with her'' Noted to have yeast-like rash b/l groin folds has been covering with Calmoseptine or zinc oxide daily Advised not to use either Clean daily with mild soap, water, pat dry Will have Rx for Nystatin powder sent to [facility] - use as directed Also encouraged to keep clean, soft cotton cloth tucked into folds to absorb moisture and promote healing able to provide verbal teach back Continues to have black stools but per , ''they are speaker mounter than they used to be'' Color could be reflective of iron in Nanci-Samuel which she it taking nightly Denies abdominal pain, sob, increased weakness, bright red blood in stools HR 58 today Has not been checking bsgs daily ''don't want to'' again states he is not going to argue with her to check bsgs Recommendation: Use Breo inhaler daily - rinse mouth after use Physical Exam: BP 106/50 | Pulse 58 | Temp 36.7 C (98 F) | Resp 18 | SpO2 94% Pain 3 Physical Exam Constitutional: Appearance: She is obese. HENT: Head: Normocephalic. Mouth/Throat: Mouth: Mucous membranes are moist. Eyes: Extraocular Movements: Extraocular movements intact. Cardiovascular: Rate and Rhythm: Normal rate and regular rhythm. Heart sounds: No murmur heard. Pulmonary: Effort: Pulmonary effort is normal. Breath sounds: Normal breath sounds. Abdominal: General: Abdomen is flat. Bowel sounds are normal. There is no distension. Palpations: Abdomen is soft. Tenderness: There is no abdominal tenderness. Genitourinary: Comments: Bimanual exam performed. 0.5 cm skin tag noted to the labia. Moderate amount of white discharge. No blood noted in the vagina. No masses palpated on the adnexa bilaterally. Musculoskeletal: Cervical back: Neck supple. Right lower leg: No edema. Left lower leg: No edema. Skin: General: Skin is warm and dry. Neurological: General: No focal deficit present. Mental Status: She is alert and oriented to person, place, and time. Psychiatric: Mood and Affect: Mood normal. Problems/Symptoms: Review of Systems Constitutional: Positive for fatigue. HENT: Negative. Eyes: Negative. Respiratory: Negative for shortness of breath. Cardiovascular: Negative. Endocrine: Negative. Genitourinary: Negative. Musculoskeletal: Positive for gait problem. Skin: Negative. Allergic/Immunologic: Negative. Neurological: Positive for weakness (legs). Hematological: Bruises/bleeds easily. Psychiatric/Behavioral: Negative. Medication Reconciliation: (See medication list) Does patient take medications as ordered: No Patient is forgetting to take medication(s). Breo - had use during visit, inhaler placed on table with puzzle, pt sits at table daily and agreedto use Patient Well Being: No change in living situation [facility] Completed this Visit: No. Routine visit and No falls since last visit Advanced Care Planning: Living Will. and Healthcare POA. Patient's Goals of Care: 1. Have more energy 2. Wound healing 3. Take a nap Reinforcement/Education: Educated on home safety: Create a fall proof home o Clear floors of clutter, loose wires, throw rugs, and cords. o Make sure halls, stairways, and entrances are well lit. o Install a nightlight in your bedroom, hallway and bathroom. o Install grab bars or handrails in the bathroom and on stairs. o Use a non-skid tub/shower mat. o Avoid climbing on a chair; instead use a step stool with a high handrail. o Keep sidewalks and steps in good repair o Keep steps and sidewalks free of snow and ice. Using aids to support and prevent falls o If you have poor balance or have fallen in the past, consider additional support such as a cane or walker. o Use a cane with good support and that is the proper length for you. o Use a walker if a cane doesnt provide enough support. Avoid medications that increase the risk of falling by causing dizziness, change in sensation or slowed reflexes. o Certain medicines may cause falls - blood pressure pills, heart medicines, water pills, or sleeping pills. o Be sure to understand each medicine that you are taking and any side effects that may occur. Improve your balance and flexibility with muscle strengthening exercises. Ask your health care provider for some exercises that will be right for you. Reviewed s/s and prevention of UTI: Symptoms: -burning with urination -increased urination -cloudy urine -dark urine -foul smelling urine -fever -weakness/change in mental status Prevention: -drink plenty of fluids -wear cotton panties -wipe from front to back -avoid delayed bladder emptying Instructed to report any signs of infection: Redness, swelling, uncontrolled pain, green/yellow drainage, foul odor or fever. Reinforced safety education and fall prevention. and Reinforced medication regimen. Timing., Dosing. and Purspose. Treatment/Plan: UA C&S to obtained by and dropped off at lab tomorrow Continue medications as prescribed Keep all upcoming MD appointments Dialysis Tue/Thur/Sat Fistula Right arm Fluid restriction Home Interventions Provided: Consulted PCP/Specialist Reinforced current Plan of Care, including self-management and medication regimen Patient's 'Red Flags': 1. Weakness 2. Falls 3. Mental status change Patient Needs to Remember: Call [facility] with red flags Referrals Needed: Other none Follow Up: Is there cellular connectivity/connectivity in the home? Yes Does the patient have internet in the home? No Patient encouraged to call the intake phone number for all urgent but not emergent issues. Is the patient new to [facility] within the last 30 days? No, Assess appropriateness for upcoming telehealth visits. Cancel telehealth visits & schedule home visit with care clinical team manager(s)as indicated. Provider is in agreement with Plan of Care: Yes Scheduled to follow up with patient 09/04/22 with RNCM - scheduled after visit d/t no connectivity, LMOM with date, time Angela Jeronimo RN 08/14/2022 9:50 AM documented in this encounter Plan of Treatment Upcoming Encounters Date Type Specialty Care Team Description 09/04/2022 Home Visit [facility] Sallie Lynne, RN [address] [facility] [place] [address] 10/25/2022 Home Visit [facility] Makeda Parada PA-C [address] [place] [address] Scheduled Procedures Name Priority Associated Diagnoses Date/Ti [...] Documents on File Type Date Recorded Patient Shipping Assistant Expl anation Power of Director Of Psychiatry 12/16/2018 10:33 AM Nate r of Director Of Psychiatry Latest Code Status on File Code Status [...] patient have Health Care Power of Director Of Psychiatry? No Healthcare Agents on File Name Relationship Healthcare Agent Relationshi p Communication Wesley Hassan Spouse Health Care Agent Care Teams Electrical Tester Battery Relationship Specialty Start Date End Date Bella Power MD [address] [place] [address] [place] [address] PCP - General Family Medicine 04/02/19 documented as of this encounter
--- OUTSIDE RECORDS SUMMARY | 2023-01-25 20:48 | External Medical Summary ---
Author Name Unknown Address Unknown Organization [id number] [place] [facility] [place] [address] Laboratory Report Ordering Provider Test Date Status GABYURBAN 08/10/2022 13:48:51 Final Observation Date Value Abnormality Reference (Units ) Status WBC, Total 08/10/2022 13:48:51 10.94 Above high normal 4 .00-10.80 (K/uL) Final RBC 08/10/2022 13:48:51 2.98 3.85-5.15 (M/uL) Final Hemoglobin 08/10/2022 13:48:51 9.7 Below low normal 12 .0-15.3 (g/dL) Final HCT 08/10/2022 13:48:51 31.8 Below low normal 36. 0-45.2 (%) Final MCV 08/10/2022 13:48:51 106.7 81.5-97.5 (fL) Final MCH 08/10/2022 13:48:51 32.6 27.0-34.0 (pg) Final MCHC 08/10/2022 13:48:51 30.5 32.0-36.0 (g/dL) Final RDW 08/10/2022 13:48:51 22.2 11.5-15.5 (%) Final Platelets 08/10/2022 13:48:51 313 140-400 (K /uL) Final MPV 08/10/2022 13:48:51 10.4 6.6-11.1 ( fL) Final Performing Location [facility] [address] [place] [address]
--- OUTSIDE RECORDS SUMMARY | 2023-01-25 20:48 | External Medical Summary | Summary of Care ---
Author Name Unknown Organization [facility] Address [address] [facility] [place] [address] Phone [phone] Care Team Providers Care Imager Name Role Phone Bella Power MD Primary Care Prov ider Reason for Visit * Reason Onset Date Comments Advice 08/02/2022 Bleeding Encounter Details Date Type Department Care Team Description 08/02/2022 Telephone Family Medicine [address] [address] Bella Power MD [address] [place], [place] [address] [address] Advice (Bleeding) Allergies No known active allergiesdocumented as of this encounter (statuses as of 08/07/2022) Medications Medication Sig Dispensed Refills Start Date [...] 1 Each 1 11/27/2018 Active DIURETIC TITRATION PLANIndications: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 heart failure with preserved ejection [...] ndications:COPD, group B, by GOLD 2017 classification ([facility] [...] DIALYSIS 90 Capsule 0 06/18/2022 3 Active documented as of this encounter (statuses as of 08/07/2022) Active Problems Problem Noted Date Hypothyroidism 06/17/2022 Last Assessment & Plan: Continue Synthroid Palliative care encounter 06/07/2021 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 BP stable. -continue dialysis Friday, Friday, Friday -continue Imdur Iron deficiency anemia due to [...] 1 diastolic dysfunction Last Assessment & Plan: Euvolemic today. Heart Failure "RED FLAG" HF Symptoms: o NO IDENTIFIED SYMPTOMS Current Heart Failure Classifications: o No symptoms ([employer] [place] [employer] CLASS I) Medication Regimen: o Beta Tanner Therapy: Other: none ? low bp o HARESH Inhibitor/ARB Therapy: Other: none. low BP, on HD o Diuretic therapy: Other: none. Low BP, HD o Diuretic Titration Protocol in place: No. 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 factor 07/18/2016 RENÉ on CPAP 04/03/2015 Restless leg syndrome 08/14/2012 Type 2 diabetes [...] LDL below 100 AYSHA (generalized anxiety disorder) Major depressive disorder, recurrent epi sode, moderate Last Assessment & Plan: Stable on sertraline Mild neurocognitive disorder documented as of this encounter (statuses as of 08/07/2022) Resolved Problems Problem Noted Date Resolved Date Hypothyroidism 05/31/2021 05/27/2022 MDD (major depressive disord [...] as of this encounter (statuses as of 08/07/2022) Immunizations Name Administration Dates Next Due COVID-19 [...] a date these can be done at [facility]( must bedone at the hospital , due [...] and needs D&C. Forward to GI and Database Reporting Consultant to see if we can coordinate hospitalization for colonoscopy and D&C. Nursing: Recommend CBC and PT/INR now too please. * Telephone Encounter - Debora Barker RN - 08/06/2022 7:32 AM EDT Please see message below, and also review SAMPLE DRILLER note of 07/24/22. Pt saw GI about [...] Encounters Date Type Specialty Care Team Description 08/09/2022 Home Visit [facility] Makeda Parada PA-C [address] [place] [address] 08/14/2022 Home Visit [facility] Sallie Lynne RN [address] [place] [address] Scheduled Orders Name Type Priority Associated Diagnoses Orde r Schedule CBC Lab Routine Rectal bleeding Expected: 08/06/2022 (Approximate), Expires: 08/06/2023 PT INR Lab Routine Rectal bleeding Expected: 08/06/2022 (Approximate), Expires: 08/06/2023 Scheduled Procedures Name Priority Associated Diagnoses Date/Ti me COLONOSCOPY FLEXIBLE PROXIMA L DIAGNOSTIC Recall Encounter for screening colonoscopy Health Maintenance Due Date Last Done Comments Zoster Vaccines (1 of 2) 12/18/2011 10/23/2011 Depression Screening, Annual for Pts 12 and Over 01/22/2020 01/21/2019 TSH 05/31/2022 05/31/2021, 09/2020, 01/30/2020, Additional history exists O2 ASSESSMENT COMPLETED IN P AST YEAR FOR COPD 07/18/2023 07/17/2022 Colonoscopy Discontinued 11/27/2015, 11/15, 10/21/2005 Colorectal Cancer Screening Discontinued Influenza Vaccine (FLU shot) Completed , 05/31/2021, 11/16/2019, Additional history exists COVID-19 Vaccine Completed 01/17/2022, 11/2021, 01/02/2021, Additional history exists Cologuard Discontinued Fecal Occult Blood Test Discontinued Sigmoidoscopy Discontinued documented as of this encounter Medical Devices Not on filedocumented as of this encounter Visit Diagnoses Diagnosis Rectal bleeding- Primary Hemorrhage of rectum and anus documented in this encounter Advance Directives Documents on File Type Date Recorded 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 No Healthcare Agents on File Name Relationship Healthcare Agent [facility] p Communication Wesley Hassan Spouse Health Care Agent Care Teams Imager Relationship Specialty Start Date End Date Bella Power MD [address] [place] [address] [place] [address] PCP - General Family Medicine 04/02/19 documented as of this encounter
--- OUTSIDE RECORDS SUMMARY | 2023-01-25 20:48 | External Medical Summary | Summary of Care ---
Author Name Unknown Organization [facility] Address [address] [facility] [place] [address] Phone [phone] Care Team Providers Care Remote Broadcast Technician Name Role Phone Bella Power MD Primary Care Prov ider Encounter Details Date Type Department Care Team Description 08/09/2022 Home Visit [facility] [address] [place] [address] Makeda Parada PA-C [address] [place] [address] Fatigue, unspecified type*; AVF (arteriovenous fistula) ([facility]); Chronic heart failure with preserved ejection fraction ([facility]); 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 ([facility]); COPD, group B, by GOLD 2017 classification ([facility]); RENÉ on CPAP; Hypothyroidism, unspecified type; 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[facility]); Primary parkinsonism ([facility]); Dependence on renal dialysis ([facility]); AYSHA (generalized anxiety disorder); History of CVA (cerebrovascular accident); History of non-ST elevation myocardial infarction (NSTEMI); Rectal bleeding Allergies No known active allergiesdocumented as of this encounter (statuses as of 08/09/2022) Medications Medication Sig Dispensed Refills Start Date End Date Status ABHISHEK MIGUEL LANCETS 33G MISC Up to 4 times daily 100 Each 6 11/24/2014 Active Glucose Blood (ONETOUCH ULTRA BLUE) STRP Use as directed 4 times a day as needed (Diabetes). Use up to four times a day as directed 100 Strip 11 02/03/2018 Active Nebulizers (NEBULIZER COMPRESSOR) MISCIndications:COPD , group B, by GOLD 2017 classification ([facility]) Inhale via nebulizer. Use as directed. 1 Each 1 11/27/2018 Active DIURETIC TITRATION PLANIndications:Assistant Professor Of Communication sandro heart failure with preserved ejection fraction [...] as of this encounter (statuses as of 08/09/2022) Active Problems Problem Noted Date Rectal bleeding [...] as of this encounter (statuses as of 08/09/2022) Resolved Problems Problem Noted Date Resolved Date [...] as of this encounter (statuses as of 08/09/2022) Immunizations Name Administration Dates Next Due COVID-19 [...] Sign Reading Time Taken Comments Blood Pressure 96/48 08/09/2022 9:19 AM EDT Pulse 61 08/09/2022 9:19 AM EDT Temperature 36.3 C (97.3 F) 08/09/2022 9:19 AM ED T Respiratory Rate 18 08/09/2022 9:19 AM EDT Oxygen Saturation 93% 08/09/2022 9:19 AM EDT Inhaled Oxygen Concentration - - [...] as of this encounter Progress Notes * Makeda Parada PA-C - 08/09/2022 10:42 AM EDT Images from the original note were not included. [facility] Problem Oriented Charting Provider Visit Date: 08/09/2022 Time: 10:42 AM [facility] Sub-Program: Short-Term Management (less than 3 months) [facility] Episode Start Date: Noted: 05/27/2022 Assessment and Plan #1 Fatigue, unspecified type - Comprehensive Metabolic Panel; Future - CBC with WBC Differential; Future - Urinalysis, Reflex to Microscopic Exam #2 AVF (arteriovenous fistula) ([facility]) #3 Chronic heart failure with preserved ejection fraction ([facility]) Overview: Echo 2019 EF 50% Grade 1 diastolic dysfunction Assessment & Plan: Current Status: "Stable" for [...] Comments: hd Exacerbation Plan o Chest X-Ray #4 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 Hypotensive today, however the patient just woke up in his lying in bed. Asymptomatic. -continue Imdur #5 COPD, group B, by GOLD 2017 classification ([facility]) Assessment & Plan: COPD "RED FLAG" COPD symptoms: o NO IDENTIFIED SYMPTOMS Medication Regimen o Breo-noncompliant Exacerbation Mgt: o No exacerbations in the past 3 months o Rescue Kit in place in Medication List: No. o Used rescue kit in the past month: No o Required IM or IV steroids (Solumedrol) since last visit: No Noncompliant with Breo #6 RENÉ on CPAP Assessment & Plan: Compliant with CPAP #7 Hypothyroidism, unspecified type Assessment & Plan: TSH ordered Continue Synthroid #8 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HCC) Assessment & Plan: Baseline -continue carbidopa levodopa, Lyrica #9 Primary parkinsonism (HCC) #10 Dependence on renal dialysis (HCC) Assessment & Plan: continue Auryxia , nephrovite #11 AYSHA (generalized anxiety disorder) Assessment & Plan: Stable on sertraline #12 History of CVA (cerebrovascular accident) Assessment & Plan: Continue aspirin, atorvastatin #13 History of non-ST elevation myocardial infarction (NSTEMI) Assessment & Plan: Stable. No angina. -continue atorvastatin, baby aspirin. Not on beta-tanner. BP will not tolerate #14 Rectal bleeding Assessment & Plan: Needs colonoscopy scheduled -CBC Additional Medical Decision Making: Kami continues to have bleeding at home. Complaining of fatigue. Blood work ordered. She will get this done after dialysis tomorrow. Close follow-up. Scheduled appointments in the next 60 days: Future Appointments-next 60 days Date/Time Provider Specialty Dept Phone 08/14/2022 11:30 AM Sallie Lynne RN [facility] [phone] 10/25/2022 8:30 AM Makeda Parada PA-C [facility] [phone] A total of 70 minutes was spent face to face (via video-based telemedicine if designated as a telemedicine visit) Subjective Subjective Is this a Telemedicine Visit? No, this is an Home Visit. Reason For [facility] Visit: Follow-Up Current Concerns: Kami Hassan is a 76 year old female seen today for a [facility] provider visit. Today's concerns are: Bleeding: Discussion with patient and patient's . She has had bleeding for quite some time. They think that it is most likely rectal, however can not rule out vaginal bleeding. Some is bright red. Also noticed black in the depends. She reports moving her bowels almost every day. No abdominalpain. No nausea. No pain with BM Patient saw Gynecology. They reportedly could not do a speculum exam as they could not get the patient on the table. They did not have a lift. Bimanual exam performed today. No blood noted. I did nothave a speculum. Will perform pelvic next visit. Endometrium ultrasound is abnormal. Per gynecologynote, hysteroscopy can be performed during the patient's colonoscopy. The patient has yet to have this scheduled. She and her do not think that she will be able to handle the prep at home. Arrangements will need to be made for an observation stay. Hypotensive. She has had significant fatigue. She denies any lightheadedness or dizziness. Occasionally short of breath. No cough. No fever or chills. Denies any dysuria. Blood work and UA ordered. Still going to dialysis Friday, , Friday. Produces a scant amount of urine. Appetite good. Additional Review of Systems All other systems reviewed and are negative. Objective Objective Vitals: 08/09/22 0919 Temp: 36.3 C (97.3 F) Pulse: 61 Resp: 18 SpO2: 93% BP: 96/48 Last Weights: Wt Readings from Last 3 Encounters: 05/31/21 95.3 kg (210 lb) 06/09/20 94.3 kg (208 lb) 02/28/20 93.4 kg (206 lb) Last BPs: BP Readings from Last 4 Encounters: 08/09/22 96/48 07/17/22 112/68 06/17/22 118/72 06/07/22 106/58 Physical Exam Constitutional: Appearance: She is obese. HENT: Head: Normocephalic. Mouth/Throat: Mouth: Mucous membranes are moist. Eyes: Extraocular Movements: Extraocular movements intact. Cardiovascular: Rate and Rhythm: Normal rate and regular rhythm. Heart sounds: No murmur heard. Pulmonary: Effort: Pulmonary effort is normal. Breath sounds: Normal breath sounds. Abdominal: General: Abdomen is flat. Bowel sounds are normal. Palpations: Abdomen is soft. Tenderness: There is no abdominal tenderness. Genitourinary: Comments: Bimanual exam performed. 0.5 cm skin tag noted to the labia. Moderate amount of white discharge. No blood noted in the vagina. No masses palpated on the adnexa bilaterally. Musculoskeletal: Cervical back: Neck supple. Skin: General: Skin is warm and dry. Neurological: General: No focal deficit present. Mental Status: She is alert and oriented to person, place, and time. Psychiatric: Mood and Affect: Mood normal. Lab Review: I have reviewed the following results: BMP results Recent Labs Units 06/12/21 0000 POTASSIUM-OUTSIDE LAB MMOL/L 3.9 CREATININE-OUTSIDE LAB MG/DL 3.59* CBC results Recent Labs Units 04/15/22 1353 06/12/21 0000 WBC AUTO - [facility] K/uL 9.00 -- HGB - [facility] g/dL 11.3* -- HEMOGLOBIN-OUTSIDE LAB G/DL -- 9.7* HCT - [facility] % 37.5 -- PLATELET AUTO - [facility] K/uL 197 -- HbA1c results Recent Labs Units 05/31/21 1504 08/21/20 1314 HEMOGLOBIN A1C - [facility] % 5.3 5.2 TSH results Recent Labs Units 05/31/21 1504 08/21/20 1314 TSH - [facility] uIU/mL 2.16 0.42 Medication Review "Bottles Out" medication review performed today and medication list in EMR updated Mobility Evaluation: MAHC10 Assessment: Assistive Devices Used in the Home: Powered Wheelchair or Scooter Makeda Parada PA-C 10:42 AM *Communication sent to PCP (via [facility] if [facility]), [facility] Health Care Team members,relevant Specialty Care Physicians* documented in this encounter Miscellaneous Notes * Assessment & Plan Note - Makeda Parada PA-C - 08/09/2022 11:01 AM EDT Associated Problem(s): Rectal bleeding Needs colonoscopy scheduled -CBC * Assessment & Plan Note - Makeda Parada PA-C - 08/09/2022 11:00 AM EDT Associated Problem(s): History of non-ST elevation myocardial infarction (NSTEMI) Stable. No angina. -continue atorvastatin, baby aspirin. Not on beta-tanner. BP will not tolerate * Assessment & Plan Note - Makeda Parada PA-C - 08/09/2022 11:00 AM EDT Associated Problem(s): History of CVA (cerebrovascular accident) Continue aspirin, atorvastatin * Assessment & Plan Note - Makeda Parada PA-C - 08/09/2022 10:59 AM EDT Associated Problem(s): AYSHA (generalized anxiety disorder) Stable on sertraline * Assessment & Plan Note - Makeda Parada PA-C - 08/09/2022 10:59 AM EDT Associated Problem(s): Dependence on renal dialysis (HCC) continue Auryxia , nephrovite * Assessment & Plan Note - Makeda Parada PA-C - 08/09/2022 10:58 AM EDT Associated Problem(s): 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HCC) Baseline -continue carbidopa levodopa, Lyrica * Assessment & Plan Note - Makeda Parada PA-C - 08/09/2022 10:58 AM EDT Associated Problem(s): Hypothyroidism TSH ordered Continue Synthroid * Assessment & Plan Note - Makeda Parada PA-C - 08/09/2022 10:57 AM EDT Associated Problem(s): RENÉ on CPAP Compliant with CPAP * Assessment & Plan Note - Makeda Parada PA-C - 08/09/2022 10:57 AM EDT Associated Problem(s): COPD, group B, by GOLD 2017 classification ([facility]) COPD "RED FLAG" COPD symptoms: o NO IDENTIFIED SYMPTOMS Medication Regimen o Breo-noncompliant Exacerbation Mgt: o No exacerbations in the past 3 months o Rescue Kit in place in Medication List: No. o Used rescue kit in the past month: No o Required IM or IV steroids (Solumedrol) since last visit: No Noncompliant with Breo * Assessment & Plan Note - Makeda Parada PA-C - 08/09/2022 10:56 AM EDT Associated Problem(s): Hypertensive heart disease with combined systolic and diastolic heart failure and end stage chronic kidney disease on dialysis (HCC) Dialysis Friday, , Friday. Hypotensive today, however the patient just woke up in his lying in bed. Asymptomatic. -continue Imdur * Assessment & Plan Note - Makeda Parada PA-C - 08/09/2022 10:55 AM EDT Associated Problem(s): Chronic heart failure with preserved ejection fraction (HCC) Current Status: "Stable" for patient / At [...] Comments: hd Exacerbation Plan o Chest X-Ray documented in this encounter Plan of Treatment Upcoming Encounters Date Type Specialty Care Team Description 08/14/2022 Home Visit [facility] Sallie Lynne, RN [address] [place] [address] 10/25/2022 Home Visit [facility] Makeda Parada PA-C [address] [place] [address] Scheduled Orders Name Type Priority Associated Diagnoses Orde r Schedule COMPREHENSIVE METABOLIC PANEL Lab Routine Fatigue, unspecified type Expected: 08/09/2022 (Approximate), Expires: 08/09/2023 CBC WITH WBC DIFFERENTIAL Lab Routine Fatigue, unspecified type Expected: 08/09/2022 (Approximate), Expires: 08/10/2023 URINALYSIS, REFLEX TO MICROSCOPIC Lab Routine Fatigue, unspecified type Ordered: 08/09/2022 TSH WITH FREE T4 IF INDICATED Lab Routine Hypothyroidism, unspecified type Expected: 08/09/2022 (Approximate), Expires: 08/09/2023 Scheduled Procedures Name Priority Associated Diagnoses Date/Ti me COLONOSCOPY FLEXIBLE PROXIMA L DIAGNOSTIC Recall Encounter for screening colonoscopy Health Maintenance Due Date Last Done Comments Zoster Vaccines (1 of 2) 12/18/2011 10/23/2011 Depression Screening, Annual for Pts 12 and Over 01/22/2020 01/21/2019 TSH 05/31/2022 05/31/2021, 06/0 09/2020, 01/30/2020, Additional history exists O2 ASSESSMENT [...] as of this encounter Visit Diagnoses Diagnosis Fatigue, unspecified type- Primary AVF (arteriovenous fistula) (HCC) Arteriovenous fistula, acquired Chronic heart failure with preserved ejection fraction (HCC) 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) COPD, group B, by GOLD 2017 classification (HCC) RENÉ on CPAP Obstructive sleep apnea (adult) (pediatric) Hypothyroidism, unspecified type 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HCC) Primary parkinsonism (HCC) Paralysis agitans Dependence on renal dialysis (HCC) Renal dialysis status AYSHA (generalized anxiety disorder) Generalized anxiety disorder History of CVA (cerebrovascular accident) Transient ischemic attack (TIA), and cerebral infarction without residual deficits History of non-ST elevation myocardial infarction (NSTEMI) Old myocardial infarction Rectal bleeding Hemorrhage of rectum and anus documented in this encounter Advance Directives Documents on File Type Date Recorded Patient Oyster Harvester Expl anation Power of Assistant Professor Of Communication 12/16/2018 10:33 AM Nate r of Assistant Professor Of Communication Latest Code Status on File Code Status [...] the patient have Health Care Power of Assistant Professor Of Communication? No Healthcare Agents on File Name Relationship Healthcare Agent Relationshi p Communication Wesley Lee Sonya Spouse Health Care Agent Care Teams Remote Broadcast Technician Relationship Specialty Start Date End Date Bella Power MD [address] [place] [address] [place] [address] PCP - General Family Medicine 04/02/19 documented as of this encounter
--- OUTSIDE RECORDS SUMMARY | 2023-01-25 20:48 | External Medical Summary | Summary of Care ---
Author Name Unknown Organization [facility] Address [address] [facility] [place] [address] Phone [phone] Care Team Providers Care Fireman Name Role Phone Bella Power MD Primary Care Prov ider Reason for Visit * Reason Onset Date Comments Advice 08/02/2022 Bleeding Encounter Details Date Type Department Care Team Description 08/02/2022 Telephone Family Medicine [address] [address] Bella Power MD [address] [place], [place] [address] [address] Advice (Bleeding) Allergies No known active [...] 1 Each 1 11/27/2018 Active DIURETIC TITRATION PLANIndications:Cornice Upholsterer sandro heart failure with preserved ejection fraction [...] pt from Dr Castanon. Would someone from [facility] scheduling contact me so we can coordinate a date for this pt. Dr Castanon does surgeries at [facility] on Fridays. Please contact me at [phone]. * Telephone Encounter - Monalisa Childers LPN [...] a date these can be done at [facility]( must bedone at the hospital , due [...] and needs D&C. Forward to GI and Fondant Machine Operator to see if we can coordinate hospitalization for colonoscopy and D&C. Nursing: Recommend CBC and PT/INR now too please. * Telephone Encounter - Debora Barker RN - 08/06/2022 7:32 AM EDT Please see message below, and also review TOOTH INSPECTOR note of 07/24/22. Pt saw GI about [...] Visit [facility] Sallie Lynne RN [address] [facility] [place] [address] 10/25/2022 Home Visit [facility] Makeda Parada PA-C [address] [place] [address] Scheduled Procedures Name Priority Associated Diagnoses Date/Ti [...] 15.2 seconds 08/10/2022 2:43 PM EDT [facility] INR 0.8 0.8 - 1.2 08/10/2022 2:43 PM EDT [facility] Blood Venous blood specimen / Unknown Venipuncture / Unknown 08/10/2022 1:48 PM EDT 08/10/2022 1:48 PM EDT Narrative [facility] [place] [facility] 57-10 - 08/10/2022 2:43 PM EDT Warfarin Therapy INR: 2.0-3.0 conventional anticoagulation INR: 2.5-3.5 high intensity anticoagulation Bella Rubio MD LAB BLOOD ORDERABLES [facility] [address] [facility] [place] [address] documented in this encounter Visit Diagnoses Diagnosis Rectal bleeding- Primary Hemorrhage of rectum and anus documented in this encounter Advance Directives Documents on File Type Date Recorded Patient Director Advanced Expl anation Power of Log Buyer 12/16/2018 10:33 AM Nate r of Log Buyer Latest Code Status on File Code Status [...] the patient have Health Care Power of Log Buyer? No Healthcare Agents on File Name Relationship Healthcare Agent Relationshi p Communication Wesley Hassan Spouse Health Care Agent Care Teams Fireman Relationship Specialty Start Date End Date Bella Power MD [address] [place] [address] [place] [address] PCP - General Family Medicine 04/02/19 documented as of this encounter
--- OUTSIDE RECORDS SUMMARY | 2023-01-25 20:48 | External Medical Summary | Summary of Care ---
Author Name Unknown Organization [facility] Address [address] [facility] [place] [address] Phone [phone] Care Team Providers Care Talk Show Host Name Role Phone Bella Power MD Primary Care Prov ider Reason for Visit * Reason Comments Outpatient Testing Encounter Details Date Type Department Care Team Description 08/10/2022 Laboratory Laboratory, [facility] [address] [facility] [place] [address] [facility] [address] 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HCC); Rectal bleeding; Fatigue, unspecified type; Hypothyroidism, unspecified type Allergies No known active allergiesdocumented as of this encounter (statuses as of 08/10/2022) Medications Medication Sig Dispensed Refills Start Date [...] directed. 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 sandro heart failure with preserved ejection fraction [...] as of this encounter (statuses as of 08/10/2022) Active Problems Problem Noted Date Rectal bleeding [...] as of this encounter (statuses as of 08/10/2022) Resolved Problems Problem Noted Date Resolved Date [...] as of this encounter (statuses as of 08/10/2022) Immunizations Name Administration Dates Next Due COVID-19 mRNA, LNP-s, No Pre serve, 2-Dose Series (Digital Assent) 01/02/2021,06/21/2020,05/24/2020 Covid-19 Mrna, Lnp-s, No Pre serve, [...] [facility] Sallie Lynne RN [address] [facility] [place] [address] 10/25/2022 Home Visit [facility] Makeda Parada PA-C [address] [place] [address] Pending Results Name Type Priority Associated Diagnoses Date /Time TSH WITH FREE T4 IF INDICATED Lab Routine 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HCC) 08/10/2022 1:48 PM EDT PT INR Lab Routine Rectal bleeding 08/10/2022 1:48 PM EDT COMPREHENSIVE METABOLIC PANEL Lab Routine Fatigue, unspecified type 08/10/2022 1:48 PM EDT CBC WITH WBC DIFFERENTIAL Lab Routine Fatigue, unspecified type 08/10/2022 1:48 PM EDT CBC Lab Routine Fatigue, unspecified type 08/10/2022 1:48 PM EDT DIFFERENTIAL, AUTOMATED Lab Routine Fatigue, unspecified type 08/10/2022 1:48 PM EDT Scheduled Procedures Name Priority Associated [...] P AST YEAR FOR COPD 08/10/2023 08/09/2022 Colonoscopy Discontinued 11/27/2015, 11/15, 10/21/2005 Colorectal Cancer Screening Discontinued Influenza Vaccine (FLU shot) Completed , 05/31/2021, 11/16/2019, Additional history exists COVID-19 Vaccine Completed 01/17/2022, 11/2021, 01/02/2021, Additional history exists Cologuard Discontinued Fecal Occult Blood Test Discontinued Sigmoidoscopy Discontinued documented as of this encounter Medical Devices Not on filedocumented as of this encounter Visit Diagnoses Diagnosis 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HCC) Rectal bleeding Hemorrhage of rectum and anus Fatigue, unspecified type Hypothyroidism, unspecified type documented in this encounter Advance Directives Documents on File Type Date Recorded Patient Environmental Health Sanitarian Expl anation Power of Rn Clinical Resource 12/16/2018 10:33 AM Nate r of Rn Clinical Resource Latest Code Status on File Code Status [...] patient have Health Care Power of Rn Clinical Resource? No Healthcare Agents on File Name Relationship Healthcare Agent Relationshi p Communication Wesley Hassan Spouse Health Care Agent Care Teams Talk Show Host Relationship Specialty Start Date End Date Bella Power MD [address] [place] [address] [place] [address] PCP - General Family Medicine 04/02/19 documented as of this encounter
--- OUTSIDE RECORDS SUMMARY | 2023-01-25 20:48 | External Medical Summary | Summary of Care ---
Author Name Unknown Organization [facility] Address [address] [facility] [place] [address] Phone [phone] Care Team Providers Care Clinical Scientist Name Role Phone Bella Power MD Primary Care Prov ider Reason for Visit * Reason Comments Outpatient Testing Encounter Details Date Type Department Care Team Description 08/10/2022 Laboratory Laboratory, [facility] 132 [facility] [place] [address] [facility] [address] Dementia associated with Parkinson's [...] directed. 1 Each 11/27/2018 Active DIURETIC TITRATION PLANIndications:Rehabilitation Team Lead sandro heart failure with preserved ejection fraction [...] mRNA, LNP-s, No Pre serve, 2-Dose Series ([employer]) 01/02/2021,06/21/2020,05/24/2020 Covid-19 Mrna, Lnp-s, No Pre serve, [...] [facility] Sallie Lynne RN [address] [facility] [place] [address] 10/25/2022 Home Visit [facility] Makeda Parada PA-C [address] [place] [address] Pending Results Name Type Priority Associated Diagnoses [...] on File Type Date Recorded Patient Manager Care Management Expl anation Power of Fuel Truck Driver 12/16/2018 10:33 AM Nate r of Fuel Truck Driver Latest Code Status on File Code Status [...] the patient have Health Care Power of Fuel Truck Driver? No Healthcare Agents on File Name Relationship Healthcare Agent Relationshi p Communication Wesley Hassan Spouse Health Care Agent Care Teams Clinical Scientist Relationship Specialty Start Date End Date Bella Power MD [address] [place] [address] [place] [address] PCP - General Family Medicine 04/02/19 documented as of this encounter
--- OUTSIDE RECORDS SUMMARY | 2023-01-25 20:48 | External Medical Summary | Summary of Care ---
Author Name Unknown Organization [facility] Address [address] [facility] [place] [address] Phone [phone] Care Team Providers Care Surgery Center Administrator Name Role Phone Bella Power MD Primary Care Prov ider Reason for Visit * Reason Onset Date Comments Advice 08/02/2022 Bleeding Encounter Details Date Type Department Care Team Description 08/02/2022 Telephone Family Medicine [address] [address] Bella Power MD [address] [place], [place] [address] [address] Advice (Bleeding) Allergies No known active [...] 1 Each 1 11/27/2018 Active DIURETIC TITRATION PLANIndications:Hospital Insurance Clerk sandro heart failure with preserved ejection fraction [...] this pt. Dr Castanon does surgeries at [facility] on Fridays. Please contact me at [phone]. * Telephone Encounter - Monalisa Childers LPN [...] these can be done at [facility]( must bedone at the hospital , [...] and needs D&C. Forward to GI and Primary Care Provider to see if we can coordinate hospitalization for colonoscopy and D&C. Nursing: Recommend CBC and PT/INR now too please. * Telephone Encounter - Debora Barker RN - 08/06/2022 7:32 AM EDT Please see message below, and also review INSTRUCTIONAL DESIGN TECHNOLOGIST note of 07/24/22. Pt saw GI about [...] [facility] Sallie Lynne RN [address] [facility] [place] [address] 10/25/2022 Home Visit [facility] Makeda Parada PA-C [address] [place] [address] Scheduled Orders Name Type Priority Associated Diagnoses [...] Documents on File Type Date Recorded Patient Corporate Communications Associate Expl anation Power of Warm In 12/16/2018 10:33 AM Nate r of Warm In Latest Code Status on File Code Status [...] the patient have Health Care Power of Warm In? No Healthcare Agents on File Name Relationship Healthcare Agent Relationshi p Communication Wesley Hassan Spouse Health Care Agent Care Teams Surgery Center Administrator Relationship Specialty Start Date End Date Bella Power MD [address] [place] [address] [place] [address] PCP - General Family Medicine 04/02/19 documented as of this encounter
--- OUTSIDE RECORDS SUMMARY | 2023-01-25 20:48 | External Medical Summary | Summary of Care ---
Author Name Unknown Organization [facility] Address [address] [facility] [place] [address] Phone [phone] Care Team Providers Care Plumber Helper Name Role Phone Bella Power MD Primary Care Prov ider Reason for Visit * Reason Onset Date Comments Advice 08/02/2022 Bleeding Encounter Details Date Type Department Care Team Description 08/02/2022 Telephone Family Medicine [address] [address] Bella Power MD [address] [place], [place] [address] [address] Advice (Bleeding) Allergies No known active [...] 1 Each 1 11/27/2018 Active DIURETIC TITRATION PLANIndications:Manager Enterprise Content Management sandro heart failure with preserved ejection fraction [...] pt from Dr Castanon. Would someone from [facility] scheduling contact me so we can coordinate a date for this pt. Dr Castanon does surgeries at [facility] on Fridays. Please contact me at [phone]. * Telephone Encounter - Monalisa Childers LPN [...] a date these can be done at [facility]( must bedone at the hospital , due [...] and needs D&C. Forward to GI and Contact Lens Polisher to see if we can coordinate hospitalization for colonoscopy and D&C. Nursing: Recommend CBC and PT/INR now too please. * Telephone Encounter - Debroa Barker RN - 08/06/2022 7:32 AM EDT Please see message below, and also review RABBLER note of 07/24/22. Pt saw GI about [...] [facility] Sallie Lynne RN [address] [facility] [place] [address] 10/25/2022 Home Visit [facility] Makeda Parada PA-C [address] [place] [address] Scheduled Orders Name Type Priority Associated Diagnoses [...] IN P AST YEAR FOR COPD 07/18/2023 08/09/2022 Colonoscopy Discontinued 11/27/2015, 11/15, 10/21/2005 Colorectal [...] Documents on File Type Date Recorded Patient Ceramic Plater Expl anation Power of Medical Affairs Director 12/16/2018 10:33 AM Nate r of Medical Affairs Director Latest Code Status on File Code [...] patient have Health Care Power of Medical Affairs Director? No Healthcare Agents on File Name Relationship Healthcare Agent Relationshi p Communication Wesley Hassan Spouse Health Care Agent Care Teams Plumber Helper Relationship Specialty Start Date End Date Bella Power MD [address] [place] [address] [place] [address] PCP - General Family Medicine 04/02/19 documented as of this encounter
--- OUTSIDE RECORDS SUMMARY | 2023-01-25 20:48 | External Medical Summary ---
Author Name Unknown Address Unknown Organization [id number]:[facility] [place] [address] [place] [facility] [place] [address] Laboratory Report Ordering Provider Test Date Status ARTEMIO TRAORE 08/10/2022 13:48:51 Final Observation Date Value Abnormality Reference (Units ) Status TSH 08/10/2022 13:48:51 1.56 0.27-4.20 (uIU/mL) Final Performing Location [facility] [place] [address] [place] [address]
--- OUTSIDE RECORDS SUMMARY | 2023-01-25 20:48 | External Medical Summary ---
Author Name Unknown Address Unknown Organization [id number]:[facility] [address] [place] [address] Laboratory Report Ordering Provider Test Date Status MARCIAL GRIFFIN 08/10/2022 13:48:51 Final Observation Date Value Abnormality Reference (Units ) Status SYNC LEUKOCYTES IN BLOOD BY AUTOMATED COUNT 08/10/2022 13:48:51 10.94 Above high normal 4.00-10.80 (K/uL) Final Neutrophils/100 leukocytes in Blood by Manual count 08/10/2022 13:48:51 77.0 Above high normal 40.0-75.0 (%) Final Lymphocytes/100 leukocytes in Blood by Manual count 08/10/2022 13:48:51 9.0 Below low normal 18.0-42.0 (%) Final Monocytes/100 leukocytes in Blood by Manual count 08/10/2022 13:48:51 4.0 1.0-11.0 (%) Final Eosinophils/100 leukocytes in Blood by Manual count 08/10/2022 13:48:51 9.0 Above high normal 0.0-6.0 (%) Final Metamyelocytes/100 leukocytes in Blood by Manual count 08/10/2022 13:48:51 1.0 Above high normal <=0.0 (%) Final Neutrophils [#/volume] in Blood by Manual count 08/10/2022 13:48:51 8.42 Above high normal 1.80-7.70 (K/uL) Final Lymphocytes [#/volume] in Blood by Manual count 08/10/2022 13:48:51 0.98 Below low normal 1.00-4.80 (K/uL) Final Monocytes [#/volume] in Blood by Manual count 08/10/2022 13:48:51 0.44 0.00-1.10 (K/uL) Final Eosinophils [#/volume] in Blood by Manual count 08/10/2022 13:48:51 0.98 Above high normal 0.00-0.70 (K/uL) Final Metamyelocytes [#/volume] in Blood by Manual count 08/10/2022 13:48:51 0.11 Above high normal <=0.00 (K/uL) Final Nucleated erythrocytes/100 leukocytes [Ratio] in Blood by Automated count 08/10/2022 13:48:51 2 Above high normal <=0 (/100 WBCs) Final [facility] - [address] [facility] [address]
--- OUTSIDE RECORDS SUMMARY | 2023-01-25 20:48 | External Medical Summary | Summary of Care ---
Author Name Unknown Organization [facility] Address [address] [facility] [place] [address] Phone [phone] Care Team Providers Care Professional Skater Name Role Phone Bella Power MD Primary Care Prov ider Reason for Visit * Reason Onset Date Comments Encounter Created in Error 08/13/2022 Encounter Details Date Type Department Care Team Description 08/13/2022 Documentation Nephrology [address] [place] [address] Erica Tobar MD [address] [facility] [place] [address] Encounter created in error Allergies No known active allergiesdocumented as of [...] B, by GOLD 2017 classification ([facility]) Inhale via nebulizer. Use as directed. 1 Each 1 11/27/2018 Active DIURETIC TITRATION PLANIndications:Global Coordinator sandro heart failure with preserved ejection [...] B, by GOLD 2017 classification ([facility]) Inhale by mouth 1 Puff [...] [facility] Sallie Lynne RN [address] [place] [address] 10/25/2022 Home Visit [facility] Makeda Parada PA-C [address] [place] [address] Scheduled Procedures Name Priority Associated Diagnoses Date/Ti [...] bleeding- Primary Hemorrhage of rectum and anus Iron deficiency anemia due to chronic blood loss Iron deficiency anemia secondary to blood loss (chronic) Encounter Created In Error documented in this encounter Advance Directives Documents on File Type Date Recorded Patient Inseamer Expl anation Power of Environmental Attorney 12/16/2018 10:33 AM Nate r of Environmental Attorney Latest Code Status on File Code Status [...] the patient have Health Care Power of Environmental Attorney? No Healthcare Agents on File Name Relationship Healthcare Agent Relationshi p Communication Wesley Hassan Spouse Health Care Agent Care Teams Professional Skater Relationship Specialty Start Date End Date Bella Power MD [address] [place] [address] [place] [address] PCP - General Family Medicine 04/02/19 documented as of this encounter
--- OUTSIDE RECORDS SUMMARY | 2023-01-25 20:48 | External Medical Summary | Summary of Care ---
Author Name Unknown Organization [facility] Address [address] [facility] [place] [address] Phone [phone] Care Team Providers Care Buckler And Lacer Name Role Phone Bella Power MD Primary Care Prov ider Reason for Visit * Reason Onset Date Comments Advice 08/02/2022 Bleeding Encounter Details Date Type Department Care Team Description 08/02/2022 Telephone Family Medicine [address] [address] Bella Power MD [address] [place], [place] [address] [address] Advice (Bleeding) Allergies No known active [...] 1 Each 1 11/27/2018 Active DIURETIC TITRATION PLANIndications:Data Processing Control Clerk sandro heart failure with preserved ejection [...] a date these can be done at [facility]( must bedone at the hospital [...] and needs D&C. Forward to GI and Inventory Specialist Manager to see if we can coordinate hospitalization for colonoscopy and D&C. Nursing: Recommend CBC and PT/INR now too please. * Telephone Encounter - Debora Barker RN - 08/06/2022 7:32 AM EDT Please see message below, and also review SPEECH AND LANGUAGE ASSISTANT note of 07/24/22. Pt saw GI [...] Parada PA-C [address] [place] [address] 08/14/2022 Home Visit [facility] Sallie Lynne RN [address] [place] [address] Scheduled Orders Name Type Priority Associated Diagnoses [...] Documents on File Type Date Recorded Patient Hand Packer Expl anation Power of Waist Pleater 12/16/2018 10:33 AM Nate r of Waist Pleater Latest Code Status on File Code Status [...] the patient have Health Care Power of Waist Pleater? No Healthcare Agents on File Name Relationship Healthcare Agent [facility] p Communication Wesley Hassan Spouse Health Care Agent Care Teams Buckler And Lacer Relationship Specialty Start Date End Date Bella Power MD [address] [place] [address] [place] [address] PCP - General Family Medicine 04/02/19 documented as of this encounter
--- OUTSIDE RECORDS SUMMARY | 2023-01-25 20:48 | External Medical Summary ---
Author Name Unknown Address Unknown Organization K0G:[facility] [address] [place] [address] Laboratory Report Ordering Provider Test Date Status LEÓNARTEMIO OTT MCMAHON 08/10/2022 13:48:51 Final Warfarin Therapy
INR: 2 .0-3.0 conventional anticoagulation
INR: 2.5- 3.5 high intensity anticoagulation Observation Date Value Abnormality Reference (Units ) Status PT 08/10/2022 13:48:51 11.5 Below low normal 11. 6-15.2 (seconds) Final INR 08/10/2022 13:48:51 0.8 0.8-1.2 Final Performing Location [facility] [address] [place] [address]
--- OUTSIDE RECORDS SUMMARY | 2023-01-25 20:48 | External Medical Summary | Summary of Care ---
Author Name Unknown Organization [facility] Address [address] [facility] [place] [address] Phone [phone] Care Team Providers Care Ornamental Machine Operator Name Role Phone Bella Power MD Primary Care Prov ider Encounter Details Date Type Department Care Team Description 08/07/2022 Telephone Family Medicine [address] [address] Bella Power MD [address] [place] [address] [place] [id number] Allergies No known active allergiesdocumented as of [...] , group B, by GOLD 2017 classification ([facility]) Inhale via nebulizer. Use as directed. 1 Each 11/27/2018 Active DIURETIC TITRATION PLANIndications:Cafeteria Cashier sandro heart failure with preserved ejection fraction (HCC) If no improvement on day 3, contact heart failure managing provider. 1 Each 12/10/2018 Active Melatonin 10 MG Tablet Take [...] G/DL -- 9.7* Medication Regimen: o Beta Tanenr Therapy: Other: none o HARESH Inhibitor/ARB Therapy: [...] [facility] Sallie Lynne RN [address] [facility] [place] [address] 10/25/2022 Home Visit [facility] Makeda Parada PA-C [address] [place] [address] Scheduled Procedures Name Priority Associated Diagnoses Date/Ti [...] Documents on File Type Date Recorded Patient Washroom Cleaner Expl anation Power of Tobacco Packing Machine Operator 12/16/2018 10:33 AM Nate r of Tobacco Packing Machine Operator Latest Code Status on File [...] the patient have Health Care Power of Tobacco Packing Machine Operator? No Healthcare Agents on File Name Relationship Healthcare Agent Relationshi p Communication Wesley Hassan Spouse Health Care Agent Care Teams Ornamental Machine Operator Relationship Specialty Start Date End Date Bella Power MD [address] [place] [address] [place] [id number] PCP - General Family Medicine 04/02/19 documented as of this encounter
--- OUTSIDE RECORDS SUMMARY | 2023-01-25 20:49 | External Medical Summary | Summary of Care ---
Author Name Unknown Organization [facility] Address [address] [facility] [place] [address] Phone [phone] Care Team Providers Care Slotter Operator Name Role Phone Bella Power MD Primary Care Prov ider Reason for Visit * Reason Comments Medication Refill Encounter Details Date Type Department Care Team Description 08/06/2022 Refill Family Medicine [address] [address] Bella Power MD [address] [place] [address] [place] [address] Chronic idiopathic constipation Allergies No known active allergiesdocumented as of this encounter (statuses as of 08/06/2022) Medications Medication Sig Dispensed Refills Start Date [...] 1 Each 1 11/27/2018 Active DIURETIC TITRATION PLANIndications:Steam Presser sandro heart failure with preserved ejection fraction [...] B, by GOLD 2017 classification ([facility]) Inhale by mouth 1 Puff [...] as of this encounter (statuses as of 08/06/2022) Active Problems Problem Noted Date Hypothyroidism 06/17/2022 [...] as of this encounter (statuses as of 08/06/2022) Resolved Problems Problem Noted Date Resolved Date [...] as of this encounter (statuses as of 08/06/2022) Immunizations Name Administration Dates Next Due COVID-19 [...] encounter Miscellaneous Notes * Telephone Encounter - Shu Mondragon MD - 08/06/2022 3:06 PM EDTSigned Prescriptions: Disp Refills Docusate Sodium 100 MG Oral Capsule (Colac*60 Cap*5 Sig: TAKE ONE CAPSULE BY MOUTH IN THE MORNING AND ONE CAPSULE BEFORE BEDTIMEAuthorizing Provider: SHU MONDRAGON documented in this encounter Plan of Treatment Upcoming Encounters Date Type Specialty Care Team Description 08/09/2022 Home Visit [facility] Makeda Parada PA-C [address] [place] [address] 08/14/2022 Home Visit [facility] Sallie Lynne, RN [address] [facility] [address] Scheduled Procedures Name Priority Associated Diagnoses Date/Ti me COLONOSCOPY FLEXIBLE PROXIMA L DIAGNOSTIC Recall Encounter for screening colonoscopy Health Maintenance Due Date Last Done Comments Zoster Vaccines (1 of 2) 12/18/2011 10/23/2011 Depression Screening, Annual for Pts 12 and Over 01/22/2020 01/21/2019 TSH 05/31/2022 05/31/2021, 0609/2020, 01/30/2020, Additional history exists O2 ASSESSMENT COMPLETED [...] as of this encounter Visit Diagnoses Diagnosis Chronic idiopathic constipation Unspecified constipation documented in this encounter Advance Directives Documents on File Type Date Recorded Patient Back Facer Expl anation Power of Office Support Specialist 12/16/2018 10:33 AM Nate r of Office Support Specialist Latest Code Status on File Code [...] the patient have Health Care Power of Office Support Specialist? No Healthcare Agents on File Name Relationship Healthcare Agent Relationshi p Communication Wesley Lee Sonya Spouse Health Care Agent Care Teams Slotter Operator Relationship Specialty Start Date End Date Bella Power MD [address] [place] [address] [place] [address] PCP - General Family Medicine 04/02/19 documented as of this encounter
--- OUTSIDE RECORDS SUMMARY | 2023-01-25 20:49 | External Medical Summary | Summary of Care ---
Author Name Unknown Organization [facility] Address [address] [facility] [place] [address] Phone [phone] Care Team Providers Care Yoke Presser Name Role Phone Bella Power MD Primary Care Prov ider Reason for Visit * Reason Onset Date Comments Advice 08/02/2022 Bleeding Encounter Details Date Type Department Care Team Description 08/02/2022 Telephone Family Medicine [address] [address] Bella Power MD [address] [place], [place] [address] [address] Advice (Bleeding) Allergies No known active [...] 1 Each 1 11/27/2018 Active DIURETIC TITRATION PLANIndications:Needle Loom Weaver sandro heart failure with preserved ejection fraction [...] can be done at [facility]( must bedone at the hospital [...] and needs D&C. Forward to GI and Inbound Call Center Agent to see if we can coordinate hospitalization for colonoscopy and D&C. Nursing: Recommend CBC and PT/INR now too please. * Telephone Encounter - Debora Barker RN - 08/06/2022 7:32 AM EDT Please see message below, and also review SENIOR FINANCIAL ANALYST note of 07/24/22. Pt saw GI about [...] Parada PA-C [address] [place] [address] 08/14/2022 Home Visit [facility] Sallie Lynne RN [address] [facility] [place] [address] Scheduled Orders Name Type Priority Associated Diagnoses [...] Documents on File Type Date Recorded Patient Engineering Coordinator Expl anation Power of Open Soaper Tender 12/16/2018 10:33 AM Nate r of Open Soaper Tender Latest Code Status on File Code [...] the patient have Health Care Power of Open Soaper Tender? No Healthcare Agents on File Name Relationship Healthcare Agent Relationshi p Communication Wesley Hassan Spouse Health Care Agent Care Teams Yoke Presser Relationship Specialty Start Date End Date Bella Power MD [address] [place] [address] [place] [address] PCP - General Family Medicine 04/02/19 documented as of this encounter
--- OUTSIDE RECORDS SUMMARY | 2023-01-25 20:49 | External Medical Summary | Summary of Care ---
Author Name Unknown Organization [facility] Address [address] [facility] [place] [address] Phone [phone] Care Team Providers Care Feeder Driver Name Role Phone Bella Power MD Primary Care Prov ider Reason for Visit * Reason Onset Date Comments Advice 08/02/2022 Bleeding Encounter Details Date Type Department Care Team Description 08/02/2022 Telephone Family Medicine [address] [address] Bella Power MD [address] [place], [place] [address] [address] Advice (Bleeding) Allergies No known active [...] 1 Each 1 11/27/2018 Active DIURETIC TITRATION PLANIndications:Activities Volunteer sandro heart failure with preserved ejection fraction [...] and needs D&C. Forward to GI and Licensed Customs Broker to see if we can coordinate hospitalization for colonoscopy and D&C. Nursing: Recommend CBC and PT/INR now too please. * Telephone Encounter - Debora Barker RN - 08/06/2022 7:32 AM EDT Please see message below, and also review OPERA SINGER note of 07/24/22. Pt saw GI about [...] Home Makeda Parada PA-C [address] [place] [address] 08/14/2022 Home Visit [facility] Sallie Lynne, [place] [address] [place] [address] Scheduled Orders Name Type Priority Associated Diagnoses [...] on File Type Date Recorded Patient Manager E Commerce Expl anation Power of Cardiopulmonary Technologist Chief 12/16/2018 10:33 AM Nate r of Cardiopulmonary Technologist Chief Latest Code Status on File Code Status [...] the patient have Health Care Power of Cardiopulmonary Technologist Chief? No Healthcare Agents on File Name Relationship Healthcare Agent Relationshi p Communication Wesley Hassan Spouse Health Care Agent Care Teams Feeder Driver Relationship Specialty Start Date End Date Bella Power MD [address] [place] [address] [place] [address] PCP - General Family Medicine 04/02/19 documented as of this encounter
--- OUTSIDE RECORDS SUMMARY | 2023-01-25 20:49 | External Medical Summary | Summary of Care ---
Author Name Unknown Organization [facility] Address [address] [facility] [place] [address] Phone [phone] Care Team Providers Care Wood Finisher Name Role Phone Bella Power MD Primary Care Prov ider Reason for Visit * Reason Onset Date Comments Advice 08/02/2022 Bleeding Encounter Details Date Type Department Care Team Description 08/02/2022 Telephone Family Medicine [address] [address] Bella Power MD [address] [place], [place] [address] [address] Advice (Bleeding) Allergies No known active [...] 1 Each 1 11/27/2018 Active DIURETIC TITRATION PLANIndications:Tap Grinder sandro heart failure with preserved ejection fraction [...] and needs D&C. Forward to GI and Deck Lid Fitter to see if we can coordinate hospitalization for colonoscopy and D&C. Nursing: Recommend CBC and PT/INR now too please. * Telephone Encounter - Debora Barker RN - 08/06/2022 7:32 AM EDT Please see message below, and also review DOCTOR OSTEOPATHIC note of 07/24/22. Pt saw GI about [...] Home Makeda Parada PA-C [address] [place] [address] 08/14/2022 Home Visit [facility] Sallie Lynne, [place] [address] [place] [address] Scheduled Orders Name Type Priority Associated Diagnoses [...] Documents on File Type Date Recorded Patient Electric Blanket Packer Expl anation Power of Registration Scheduling Specialist 12/16/2018 10:33 AM Nate r of Registration Scheduling Specialist Latest Code Status on File Code [...] the patient have Health Care Power of Registration Scheduling Specialist? No Healthcare Agents on File Name Relationship Healthcare Agent Relationshi p Communication Wesley Hassan Spouse Health Care Agent Care Teams Wood Finisher Relationship Specialty Start Date End Date Bella Power MD [address] [place] [address] [place] [address] PCP - General Family Medicine 04/02/19 documented as of this encounter
--- OUTSIDE RECORDS SUMMARY | 2023-01-25 20:49 | External Medical Summary | Summary of Care ---
Author Name Unknown Organization [facility] Address [address] [facility] [place] [address] Phone [phone] Care Team Providers Care Senior Animator Name Role Phone Bella Power MD Primary Care Prov ider Reason for Visit * Reason Onset Date Comments Advice 08/02/2022 Bleeding Encounter Details Date Type Department Care Team Description 08/02/2022 Telephone Family Medicine [address] [address] Bella Power MD [address] [place], [place] [address] Advice (Bleeding) Allergies No known active [...] Each 1 11/27/2018 Active DIURETIC TITRATION PLANIndications:Manager Mining sandro heart failure with preserved ejection fraction [...] date these can be done at [facility]( must bedone at the hospital , [...] and needs D&C. Forward to GI and Feather Curling Machine Operator to see if we can coordinate hospitalization for colonoscopy and D&C. Nursing: Recommend CBC and PT/INR now too please. * Telephone Encounter - Debora Barker RN - 08/06/2022 7:32 AM EDT Please see message below, and also review DRY CELL SEALER note of 07/24/22. Pt saw GI about [...] Parada PA-C [address] [place] [address] 08/14/2022 Home Visit [facility] Sallie Lynne RN [address] [facility] [place] [address] Scheduled Orders Name Type Priority Associated Diagnoses [...] on File Type Date Recorded Patient Water Conservationist Expl anation Power of Lens Engraver 12/16/2018 10:33 AM Nate r of Lens Engraver Latest Code Status on File Code Status [...] the patient have Health Care Power of Lens Engraver? No Healthcare Agents on File Name Relationship Healthcare Agent Relationshi p Communication Wesley Hassan Spouse Health Care Agent Care Teams Senior Animator Relationship Specialty Start Date End Date Bella Power MD [address] [place] [address] [place] [address] PCP - General Family Medicine 04/02/19 documented as of this encounter
--- OUTSIDE RECORDS SUMMARY | 2023-01-25 20:49 | External Medical Summary | Summary of Care ---
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 Forward to GI and Airline Pilot Flight Instructor to see if we can coordinate hospitalization for colonoscopy and D&C. Nursing: Recommend CBC and PT/INR now too please. * Telephone Encounter - Debora Barker RN - 08/06/2022 7:32 AM EDT Please see message below, and also review IUSS ACOUSTIC ANALYST note of 07/24/22. Pt saw GI [...] Parada PA-C [address] [place] [address] 08/14/2022 Home Visit [facility] Sallie Lynne, RN [address] [facility] [place] [address] Scheduled Orders Name Type Priority Associated Diagnoses [...] Documents on File Type Date Recorded Patient Tile Mason Expl anation Power of Agency Owner 12/16/2018 10:33 AM Nate r of Agency Owner Latest Code Status on File Code Status [...] the patient have Health Care Power of Agency Owner? No Healthcare Agents on File Name Relationship Healthcare Agent Relationshi p Communication Wesley Hassan Spouse Health Care Agent Care Teams Aircraft Engineer Relationship Specialty Start Date End Date Bella Power MD [address] [place] [address] [place] [address] PCP - General Family Medicine 04/02/19 documented as of this encounter
--- OUTSIDE RECORDS SUMMARY | 2023-01-25 20:49 | External Medical Summary | Summary of Care ---
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 Forward to GI and Manager Facility to see if we can coordinate hospitalization for colonoscopy and D&C. Nursing: Recommend CBC and PT/INR now too please. * Telephone Encounter - Debora Barker RN - 08/06/2022 7:32 AM EDT Please see message below, and also review OIL DRILLER note of 07/24/22. Pt saw GI [...] Parada PA-C [address] [place] [address] 08/14/2022 Home Visit [facility] Sallie Lynne, RN [address] [facility] [place] [address] Scheduled Orders Name Type Priority Associated Diagnoses [...] Documents on File Type Date Recorded Patient Power And Recovery Supervisor Expl anation Power of Patient Access 12/16/2018 10:33 AM Nate r of Patient Access Latest Code Status on File Code Status [...] the patient have Health Care Power of Patient Access? No Healthcare Agents on File Name Relationship Healthcare Agent Relationshi p Communication Wesley Hassan Spouse Health Care Agent Care Teams Shop Supervisor Relationship Specialty Start Date End Date Bella Power MD [address] [place] [address] [place] [address] PCP - General Family Medicine 04/02/19 documented as of this encounter
--- OUTSIDE RECORDS SUMMARY | 2023-01-25 20:49 | External Medical Summary | Summary of Care ---
Author Name Unknown Organization [facility] Address [address] [facility] [place] [address] Phone [phone] Care Team Providers Care Supervisor Vine Fruit Farming Name Role Phone Bella Power MD Primary Care Prov ider Reason for Visit * Reason Onset Date Comments Advice 08/02/2022 Bleeding Encounter Details Date Type Department Care Team Description 08/02/2022 Telephone Family Medicine [address] [address] Bella Power MD [address] [place], [place] [address] [address] Advice (Bleeding) Allergies No known active [...] 1 Each 1 11/27/2018 Active DIURETIC TITRATION PLANIndications:Net Web Application Developer sandro heart failure with preserved ejection fraction [...] a date these can be done at [facility]( must bedone at the hospital [...] and needs D&C. Forward to GI and Model Maker Firearms to see if we can coordinate hospitalization for colonoscopy and D&C. Nursing: Recommend CBC and PT/INR now too please. * Telephone Encounter - Debora Barker RN - 08/06/2022 7:32 AM EDT Please see message below, and also review GASOLINE ENGINE ASSEMBLER note of 07/24/22. Pt saw GI about [...] Parada PA-C [address] [place] [address] 08/14/2022 Home Visit [facility] Sallie Lynne RN [address] [facility] [place] [address] Scheduled Orders Name Type Priority Associated Diagnoses [...] Documents on File Type Date Recorded Patient Anesthesiologist Physician Expl anation Power of Plum Packer 12/16/2018 10:33 AM Nate r of Plum Packer Latest Code Status on File Code Status [...] the patient have Health Care Power of Plum Packer? No Healthcare Agents on File Name Relationship Healthcare Agent Relationshi p Communication Wesley Hassan Spouse Health Care Agent Care Teams Supervisor Vine Fruit Farming Relationship Specialty Start Date End Date Bella Power MD [address] [place] [address] [place] [address] PCP - General Family Medicine 04/02/19 documented as of this encounter
[2023-01-26] MEDS: LEVOTHYROXINE SODIUM 125 MCG TABLET PO SCH (05:18)
[2023-01-26] MEDS: FERRIC CITRATE 210 MG TAB PO SCH ×3 (07:38→17:58)
[2023-01-26] MEDS: CARBIDOPA/LEVODOPA 25/100MG TAB PO SCH ×3 (07:38→17:58)
[2023-01-26] MEDS: INSULIN ASPART PER UNIT CHARGE SC SCH ×4 (08:49→20:29)
[2023-01-26] MEDS: FLUTICASONE/VILANTEROL 200/25MCG 14 PUFFS/INHALER INH SCH (09:29)
[2023-01-26] MEDS: HYDROCORTISONE ACETATE 25 MG SUPP PR SCH (09:29)
[2023-01-26] MEDS: PANTOprazole 40 MG in SYRINGE 0 ML IV SCH ×2 (09:29→20:28)
[2023-01-26] MEDS: PREGABALIN 100 MG CAP PO SCH ×2 (09:33→20:29)
--- NOTE | 2023-01-26 10:13 | Nephrology Progress Note ---
Date of Service January 26, 2023 Assessment & Plan (1) Hemodialysis status: Plan: ESRD patient TTS schedule and she did receive dialysis as an inpatient. Patient tolerated dialysis well yesterday. No signs of volume overload. No indication for dialysis today. Next dialysis will be Friday (2) Rectal bleeding: Plan: Acute on chronic possible rectal bleeding. Already been evaluated by gastroenterology and she did receive 1 unit of blood transfusion. No plan for endoscopy or colonoscopy at this point. Patient will be receiving Epogen 86564 units with dialysis (3) Anemia: Plan: hemoglobin of 8.6 today. Continue Epogen with dialysis as above Admission and Anticipated Discharge Date Admission Date: January 21, 2023 Subjective Seen for ESRD. No shortness of breath. No bloody stools. Patient had dialysis yesterday. Review of Systems 2 Review of Systems: All other systems were reviewed and negative except as noted in HPI Physical Exam 2 Physical Exam: General exam: Appears comfortable, no acute distress HEENT: Pupils are equal and reactive to light Neck: No JVD, neck is supple trachea is midline Respiratory system: Clear breath sounds bilaterally. Gastrointestinal: Abdomen is soft, non distended, non tender, bowel sounds are present CVS: Regular rate and rhythm. No murmurs, rubs or gallops Musculoskeletal: No joint or muscle tenderness Extremities: Non tender, no edema, peripheral pulses are present Neuro: Oriented, no tremors, no focal neurological deficits Skin: No rashes Results & Data Vital Signs (Past 12 Hours) Vital Signs Temp Pulse Pulse Resp BP Pulse Ox O2 Del Method 01/26/23 08:14 37.0 C 68 18 110/42 L 92 Nasal Cannula 01/26/23 07:52 68 01/26/23 07:46 Nasal Cannula 01/26/23 03:59 36.7 C 63 18 154/77 H 94 Nasal Cannula 01/25/23 23:38 64 01/25/23 22:40 36.9 C 60 16 144/58 H Nasal Cannula O2 Flow Rate 01/26/23 08:14 3 01/26/23 07:52 01/26/23 07:46 3 01/26/23 03:59 3 01/25/23 23:38 01/25/23 22:40 3 Laboratory Results 01/25/23 06:31 (3) Anemia Anemia type: unspecified type Qualified Code(s): D64.9 - Anemia, unspecified
--- NOTE | 2023-01-26 11:47 | Hospitalist Progress Note ---
Date of Service January 26, 2023 Assessment & Plan (1) Rectal bleeding: (2) End stage chronic kidney disease: (3) Hemodialysis status: (4) Anemia: (5) Hypotension: (6) DM type 2 (diabetes mellitus, type 2): (7) Hypertension: (8) Parkinson disease: (9) LBBB (left bundle branch block): Plan Ms Hassan is a 77yo F with a PMH DM II, hypothyroidism, COPD, ESRD on hemodialysis, anemia, rheumatoid arthritis, h/o sacral ulcers, history of rectal bleeding 2/2 hemorrhoids and other medical problems listed below who presents from dialysis clinic with concern for rectal bleed. Patient's provides majority of history, noting multiple episodes of bright red blood, but more frequent dark, "difficult to clean" episodes of stool. General Surgery consulted to examine if any intervention warranted on hemorrhoids. GI reconsulted given melanotic stool and continued bleeding, noted by poor response to transfusion administered on 01/21. Patient undergoing EGD 01/24 that was reportedly unremarkable. Patient's hgb remained stable and patient medically clear for discharge. Dispo contingent on placement if able to termite inspector facility. If placement appears to be prolonged, will take patient home on friday and await for opening at home after HD. #Encephalopathy, c/f hypercapnia *improving #RENÉ -Napping all day; confused when awakening, no CPAP at bedside -VBG normal, will continue CPAP at night and with nap -Nocturnal sleep study given reports of occasional "confusion" and "sleepiness" -Delirium precautions #Rectal bleed *stable #Melanotic stool Previously admitted in September 2022 and underwent colonoscopy, which showed internal/external hemorrhoids Presented today hypotensive with SBP in 60s (improved to 110s, normal HR, BUN 63, Cr 9.59) Hgb today 8.4 (similar to [place] admission), but outpatient hgb closer to 10-11 over the last few months s/p 1 UPRBC 01/21 -Gen surg consult: no banding necessary, stable, CTM -GI reconsulted: EGD normal -Suppos hydrocortisone for hemorrhoids #Acute on Chronic Macrocytic anemia *stable #Anemia of ESRD #RACHEL -Follows Dr. Lisa loyola "Hemorrhoids and diverticulosis found on colonoscopyalong with a serrated polyp which was removed. Thickened endometrium w benign path.She had UGI endoscopy in Apr that showed LA grade B esophagitis, erythema of gastric antrum, body, and duodenum, and with starting Protonix, a second scope in June showed resolution.VCE showing duodenitis." -Receives Venofer with HD -Trend H/H, ensure Heme/Onc follow up and Nephrology -EGD completed, report not uploaded, reportedly stable per nursing handoff #ESRD (end stage renal disease) on dialysis Sent over from dialysis today for concern for rectal bleed (last complete dialysis Friday, TuThSa schedule) Nephrology following, HD today #DM II Diet controlled, A1c of 5.3 in May 2022 Diabetic diet, loose SSI while admitted BSG AC HS #Chronic HFpEF #LBBB (left bundle branch block) Chronic, stable #Parkinson disease Continue Sinemet per home regimen #Hypothyroidism Stable, continue levothyroxine DVT Ppx: SCDs given bleed Code status: FULL CODE PCP: Kay Dispo: Medically stable at this time, pending placement Admission and Anticipated Discharge Date Admission Date: January 21, 2023 Subjective NAEO Review of Systems Review of Systems: All systems reviewed & are unremarkable except as noted in Subjective Physical Exam Constitutional: WD/WN, vitals as above Respiratory: normal respiratory effort, lungs clear to auscultation Cardiovascular: RRR, no murmur, no edema Results & Data Results & Data Vital Signs (Past 12 Hours) Vital Signs Temp Pulse Pulse Resp BP Pulse Ox O2 Del Method 01/26/23 11:01 36.9 C 66 16 102/64 95 Room Air 01/26/23 08:14 37.0 C 68 18 110/42 L 92 Nasal Cannula 01/26/23 07:52 68 01/26/23 07:46 Nasal Cannula 01/26/23 03:59 36.7 C 63 18 154/77 H 94 Nasal Cannula O2 Flow Rate 01/26/23 11:01 01/26/23 08:14 3 01/26/23 07:52 01/26/23 07:46 3 01/26/23 03:59 3 (4) Anemia Anemia type: unspecified type Qualified Code(s): D64.9 - Anemia, unspecified (5) Hypotension Hypotension type: unspecified hypotension type Qualified Code(s): I95.9 - Hypotension, unspecified (7) Hypertension Hypertension type: essential hypertension Qualified Code(s): I10 - Essential (primary) hypertension
[2023-01-26] MEDS: SERTRALINE HCL 100 MG TABLET PO SCH (20:28)
[2023-01-26] MEDS: ISOSORBIDE MONO EXTENDED REL 30 MG TABCR PO SCH (20:28)
[2023-01-26] MEDS: NEPHROCAPS PO SCH (20:28)
[2023-01-26] MEDS: ATORVASTATIN 40 MG TAB PO SCH (20:29)
[2023-01-26] MEDS: ERYTHROMYCIN OP OINT 5 MG/GM 3.5 GM TUBE OP SCH (23:41)
[2023-01-27] MEDS: LEVOTHYROXINE SODIUM 125 MCG TABLET PO SCH (05:52)
[2023-01-27 06:20] LABS: Hematocrit (blood only) 28.2 % (37.0-47.0); Hemoglobin 8.7 g/dl (12.0-16.0); Mean Corpuscular Hemoglobin 30.9 pg (25.0-34.0); Mean Corpuscular Hgb Conc 30.9 g/dL (32.0-36.0); Mean Platelet Volume 11.1 fL (9.4-12.4); Platelet Count 226 K/uL (130-400); RDW Coefficient of Variation 17.3 % (11.5-14.5); RDW Standard Deviation 61.1 fL (36.4-46.3); Red Blood Count 2.82 M/uL (4.20-5.40); White Blood Count 8.07 K/ul (4.8-10.8)
[2023-01-27 06:36] LABS: BUN Creatinine Ratio 4.1 (10-20); Calcium 8.9 mg/dl (8.6-10.3); Creatinine Clr Calc Pharmacy 7.1 ml/min; Est GFR (African American) 5.3 ml/min; Est GFR (Non-African American) 4.6 ml/min; Phosphorus 4.8 mg/dl (2.5-4.9); Potassium 3.6 mmol/L (3.5-5.1)
--- NOTE | 2023-01-27 07:21 | Hospitalist Progress Note ---
Date of Service January 27, 2023 Assessment & Plan (1) Rectal bleeding: (2) End stage chronic kidney disease: (3) Hemodialysis status: (4) Anemia: (5) Hypotension: (6) DM type 2 (diabetes mellitus, type 2): (7) Hypertension: (8) Parkinson disease: (9) LBBB (left bundle branch block): Plan Ms Hassan is a 77yo F with a PMH DM II, hypothyroidism, COPD, ESRD on hemodialysis, anemia, rheumatoid arthritis, h/o sacral ulcers, history of rectal bleeding 2/2 hemorrhoids and other medical problems listed below who presents from dialysis clinic with concern for rectal bleed. Patient's provides majority of history, noting multiple episodes of bright red blood, but more frequent dark, "difficult to clean" episodes of stool. General Surgery consulted to examine if any intervention warranted on hemorrhoids. GI reconsulted given melanotic stool and continued bleeding, noted by poor response to transfusion administered on 01/21. Patient undergoing EGD 01/24 that was reportedly unremarkable. Patient's hgb remained stable and patient medically clear for discharge. Dispo contingent on placement if able to [facility] terminal supervisor facility. If placement appears to be prolonged, will take patient home on friday and await for opening at home after HD. #Encephalopathy, c/f hypercapnia *improving #RENÉ -Napping all day; confused when awakening, no CPAP at bedside -VBG normal, will continue CPAP at night and with nap -Nocturnal sleep study given reports of occasional "confusion" and "sleepiness" -Delirium precautions #Rectal bleed *stable #Melanotic stool Previously admitted in September 2022 and underwent colonoscopy, which showed internal/external hemorrhoids Presented today hypotensive with SBP in 60s (improved to 110s, normal HR, BUN 63, Cr 9.59) Hgb today 8.4 (similar to [place] admission), but outpatient hgb closer to 10-11 over the last few months s/p 1 UPRBC 01/21 -Gen surg consult: no banding necessary, stable, CTM -GI reconsulted: EGD normal -Suppos hydrocortisone for hemorrhoids #Acute on Chronic Macrocytic anemia *stable #Anemia of ESRD #RACHEL -Follows Dr. Lisa loyola "Hemorrhoids and diverticulosis found on colonoscopyalong with a serrated polyp which was removed. Thickened endometrium w benign path.She had UGI endoscopy in Apr that showed LA grade B esophagitis, erythema of gastric antrum, body, and duodenum, and with starting Protonix, a second scope in June showed resolution.VCE showing duodenitis." -Receives Venofer with HD -Trend H/H, ensure Heme/Onc follow up and Nephrology -EGD completed, report not uploaded, reportedly stable per nursing handoff #ESRD (end stage renal disease) on dialysis Sent over from dialysis today for concern for rectal bleed (last complete dialysis Friday, [facility] schedule) Nephrology following, HD today #DM II Diet controlled, A1c of 5.3 in May 2022 Diabetic diet, loose SSI while admitted BSG AC HS #Chronic HFpEF #LBBB (left bundle branch block) Chronic, stable #Parkinson disease Continue Sinemet per home regimen #Hypothyroidism Stable, continue levothyroxine DVT Ppx: SCDs given bleed Code status: FULL CODE PCP: Kay Dispo: Medically stable at this time, pending placement Admission and Anticipated Discharge Date Admission Date: January 21, 2023 Results & Data Results & Data Vital Signs (Past 12 Hours) Vital Signs Temp Pulse Pulse Resp BP Pulse Ox O2 Del Method 01/27/23 03:48 36.8 C 63 16 148/67 H 94 Nasal Cannula 01/26/23 23:26 36.5 C 65 16 141/61 H 93 Nasal Cannula 01/26/23 23:11 63 01/26/23 20:16 37.0 C 61 18 118/50 L 93 Nasal Cannula 01/26/23 20:00 Nasal Cannula O2 Flow Rate 01/27/23 03:48 2 01/26/23 23:26 2 01/26/23 23:11 01/26/23 20:16 2 01/26/23 20:00 3 (4) Anemia Anemia type: unspecified type Qualified Code(s): D64.9 - Anemia, unspecified (5) Hypotension Hypotension type: unspecified hypotension type Qualified Code(s): I95.9 - Hypotension, unspecified (7) Hypertension Hypertension type: essential hypertension Qualified Code(s): I10 - Essential (primary) hypertension
[2023-01-27] MEDS: FERRIC CITRATE 210 MG TAB PO SCH ×2 (07:59→15:15)
[2023-01-27] MEDS: CARBIDOPA/LEVODOPA 25/100MG TAB PO SCH ×2 (07:59→15:16)
[2023-01-27] MEDS: ERYTHROMYCIN OP OINT 5 MG/GM 3.5 GM TUBE OP SCH ×2 (08:00→15:21)
[2023-01-27] MEDS: FLUTICASONE/VILANTEROL 200/25MCG 14 PUFFS/INHALER INH SCH (08:00)
[2023-01-27] MEDS: PANTOprazole 40 MG in SYRINGE 0 ML IV SCH (08:01)
[2023-01-27] MEDS: HYDROCORTISONE ACETATE 25 MG SUPP PR SCH (08:01)
--- NOTE | 2023-01-27 08:56 | Nephrology Progress Note ---
Date of Service January 27, 2023 Assessment & Plan (1) Hemodialysis status: Plan: ESRD patient TTS schedule and she did receive dialysis as an inpatient. Patient tolerated dialysis well yesterday. No signs of volume overload. No indication for dialysis today. Next dialysis would normally be 01/28 >> however OP unit is having a planned power outage and her tx was to be rescheduled in any event HD today (2) Rectal bleeding: Plan: Acute on chronic possible rectal bleeding. Already been evaluated by gastroenterology and she did receive 1 unit of blood transfusion. EGD unremarkable this admission. Colonoscopy 09/2022 w/ int/ext hemorrhoids > steroid cream recommendted Patient will be receiving Epogen 60993 units with dialysis (3) Anemia: Plan: hemoglobin of 8.6 today. Continue Epogen with dialysis as above Admission and Anticipated Discharge Date Admission Date: January 21, 2023 Results & Data Vital Signs (Past 12 Hours) Vital Signs Temp Pulse Pulse Resp BP Pulse Ox O2 Del Method 01/27/23 03:48 36.8 C 63 16 148/67 H 94 Nasal Cannula 01/26/23 23:26 36.5 C 65 16 141/61 H 93 Nasal Cannula 01/26/23 23:11 63 O2 Flow Rate 01/27/23 03:48 2 01/26/23 23:26 2 01/26/23 23:11 Laboratory Results 01/27/23 05:53 01/27/23 05:53 (3) Anemia Anemia type: unspecified type Qualified Code(s): D64.9 - Anemia, unspecified
[2023-01-27] MEDS ORDERED: EPOETIN ALFA 20,000 UNITS/ML VIAL IV ONE (09:13)
[2023-01-27] MEDS ORDERED: SODIUM CHLORIDE 0.9% 1,000 ML IV PRN (09:13)
[2023-01-27] MEDS: INSULIN ASPART PER UNIT CHARGE SC SCH ×2 (09:51→15:05)
[2023-01-27] MEDS: DOCUSATE SODIUM 100 MG CAP PO SCH (09:52)
[2023-01-27] MEDS: PREGABALIN 100 MG CAP PO SCH (09:53)
--- NOTE | 2023-01-27 14:12 | Discharge Summary ---
Discharge Summary Date of Service January 27, 2023 Notes For Next Care Provider CBC in 1 week time Resume Dialysis on as scheduled Medication Changes From Visit -Erythromycin QID x 7 days; Admission HPI Per Admitting Provider This is a 77yo F with a PMH DM II, hypothyroidism, COPD, ESRD on hemodialysis, anemia, rheumatoid arthritis, h/o sacral ulcers, history of rectal bleeding 2/2 hemorrhoids and other medical problems listed below who presents from dialysis clinic with concern for rectal bleed. Was admitted for rectal bleed in September and underwent colonoscopy which showed internal/external hemorrhoids. Hgb has remained around 8. Was found to have blood in underwear at dialysis earlier and was sent to ED before she was dialyzed. History obtained primarily from at bedside and reports intermittent darker maroon blood in toilet and in underwear. Denies any recent changes to how she is feeling besides feeling weak. No F/C, lightheadedness, CP, SOB, N/V, abdominal pain, dysuria, diarrhea or constipation. Urinates once a day. Admission Exam Per Admitting Provider GENERAL: Lethargic, tired, oriented. NAD, on 3 L oxygen via nasal cannula. Appears ill/frail/weak. Obese class III. HEENT: No pallor, no icterus. Pupils equal, round and reactive to light. Oral mucosa moist. NECK: No JVD, no neck masses. HEART: S1 and S2 heard. Regular rate and rhythm. No murmur, no gallop. RESPIRATORY SYSTEM: Normal AP diameter. No accessory muscle use. No wheezing, decreased breath sounds bilaterally due to morbid obesity. ABDOMEN: Soft, bowel sounds present, nontender, no distention. CENTRAL NERVOUS SYSTEM: No facial droop. Speech is clear. Obeys simple commands. Moves extremities. EXTREMITIES: Trace BLE edema, no erythema seen. Principal Dx & Hospital Course #1 = Principal Diagnosis (1) Rectal bleeding: (2) End stage chronic kidney disease: (3) Hemodialysis status: (4) Anemia: (5) Hypotension: (6) DM type 2 (diabetes mellitus, type 2): (7) Hypertension: (8) Parkinson disease: (9) LBBB (left bundle branch block): Plan Ms Hassan is a 77yo F with a PMH DM II, hypothyroidism, COPD, ESRD on hemodialysis, anemia, rheumatoid arthritis, h/o sacral ulcers, history of rectal bleeding 2/2 hemorrhoids and other medical problems listed below who presents from dialysis clinic with concern for rectal bleed. Patient's provides majority of history, noting multiple episodes of bright red blood, but more frequent dark, "difficult to clean" episodes of stool. General Surgery consulted to examine if any intervention warranted on hemorrhoids. GI reconsulted given melanotic stool and continued bleeding, noted by poor response to transfusion administered on 01/21. Patient undergoing EGD 01/24 that was reportedly unremarkable. Patient's hgb remained stable and patient medically clear for discharge. Long discussion had with regarding anemia and the complex physiology when ESRD is in play. It was explained that not all "anemia" is related to overt GIB and that it can be challenging to keep the "supply" high compared to the body's demand. He verbalized understanding and notes that he is looking forward to placement for her as he is feeling exhausted and having a hard time with the upkeep of care; however, he is willing to take her home. Multiple placement applications are pending at this time, but bed availability is the limiting factor. #Encephalopathy, c/f hypercapnia *stable #RENÉ -Napping all day; confused when awakening, no CPAP at bedside -VBG normal, will continue CPAP at night and with nap -Nocturnal sleep study given reports of occasional "confusion" and "sleepiness" -Delirium precautions -Concern for underlying dementia given parkinson's; easily reoriented. #Rectal bleed *stable #Melanotic stool Previously admitted in September 2022 and underwent colonoscopy, which showed internal/external hemorrhoids Presented today hypotensive with SBP in 60s (improved to 110s, normal HR, BUN 63, Cr 9.59) Hgb today 8.4 (similar to [place] admission), but outpatient hgb closer to 10-11 over the last few months s/p 1 UPRBC 01/21--no further transfusions -Explained stool color may be related to iron supplementation -Gen surg consult: no banding necessary, stable, CTM -GI reconsulted: EGD normal -continue hydrocortisone for hemorrhoids #Acute on Chronic Macrocytic anemia *stable #Anemia of ESRD #RACHEL -Follows Dr. Lisa loyola "Hemorrhoids and diverticulosis found on colonoscopyalong with a serrated polyp which was removed. Thickened endometrium w benign path.She had UGI endoscopy in Apr that showed LA grade B esophagitis, erythema of gastric antrum, body, and duodenum, and with starting Protonix, a second scope in June showed resolution.VCE showing duodenitis." -Receives Venofer with HD -Trend H/H, ensure Heme/Onc follow up and Nephrology -EGD completed, report not uploaded, reportedly stable per nursing handoff -Encourage GI follow up #ESRD (end stage renal disease) on dialysis Sent over from dialysis today for concern for rectal bleed (last complete dialysis Friday, [facility] schedule) Nephrology following, HD today 01/27 given power outage at HD center on Friday--resume routine schedule upon discharge. #DM II Diet controlled, A1c of 5.3 in May 2022 Diabetic diet, loose SSI while admitted BSG AC HS #Chronic HFpEF #LBBB (left bundle branch block) Chronic, stable #Parkinson disease Continue Sinemet per home regimen #Hypothyroidism Stable, continue levothyroxine On day of discharge, patient tolerated HD, eating meals, and at baseline functionality (full assist) Discharge Exam Constitutional WD/WN, vitals as above Respiratory normal respiratory effort, lungs clear to auscultation Cardiovascular RRR, no murmur, no edema Gastrointestinal (Abdomen) normal bowel sounds, soft, nontender, no hepatosplenomegaly Updated Medication List Medication Instructions Recorded Confirmed Type aspirin 81 mg tablet,delayed 162 mg PO QAM 11/15/21 01/21/23 History release atorvastatin 80 mg tablet 80 mg PO QPM 11/15/21 01/21/23 History carbidopa 25 mg-levodopa 100 mg 1 tab PO TIDM 11/15/21 01/21/23 History tablet docusate sodium 100 mg capsule 100 mg PO Q2D 11/15/21 01/21/23 History (Colace) isosorbide mononitrate 30 mg 30 mg PO QPM 11/15/21 01/21/23 History tablet,extended release 24 hr levothyroxine 125 mcg tablet 125 mcg PO QAM 11/15/21 01/21/23 History lidocaine-prilocaine 2.5 %-2.5 % 1 applic topical DIRECTED PRN 1 11/15/21 01/21/23 History topical cream HR PRIOR TO DIALYSIS pregabalin 100 mg capsule 100 mg PO .BID 4DAYSWEEK 11/15/21 01/21/23 History sertraline 100 mg tablet 100 mg PO QPM 11/15/21 01/21/23 History vitamin B complex-vitamin C-folic 1 tab PO QPM 04/16/22 01/21/23 History acid 0.8 mg tablet (Nanci-Samuel) pantoprazole 20 mg tablet,delayed 20 mg PO BID 05/23/22 01/21/23 History release acetaminophen 325 mg tablet 650 mg PO Q6H PRN Pain 09/05/22 01/21/23 History (Tylenol) epinephrine 0.3 mg/0.3 mL 0.3 mg IM DIRECTED PRN Allergic 09/05/22 01/21/23 History injection, auto-injector (EpiPen) Reaction hydrocortisone 2.5 % topical cream 1 applic VA DAILY PRN Hemorrhoids 09/05/22 01/21/23 History with perineal applicator meclizine 12.5 mg tablet 12.5 mg PO TID PRN Dizziness 09/05/22 01/21/23 History melatonin 10 mg tablet 10 mg PO HS PRN Sleep 09/05/22 01/21/23 History nystatin 100,000 unit/gram topical 1 applic EXT BID #30 grams 09/09/22 01/21/23 Rx powder (Nystop) ferric citrate 210 mg iron tablet 420 mg PO TIDM 01/21/23 01/21/23 History (Auryxia) fluticasone furoate 200 1 inh inhalation DAILY 01/21/23 01/21/23 History mcg-vilanterol 25 mcg/dose inhalation powder (Breo Ellipta) lidocaine-prilocaine 2.5 %-2.5 % 1 applic topical DIRECTED 01/21/23 01/21/23 History topical cream pregabalin 100 mg capsule 100 mg PO .TID 3 DAYS A WEEK 01/21/23 01/21/23 History erythromycin 5 mg/gram (0.5 %) eye 1 applic ophthalmic (eye) QID 7 01/27/23 Rx ointment days #3.5 grams Hospital Stay Data Consultations 01/21/23 11:16 ED Decision to Admit Stat 01/21/23 11:54 Consult Nephrology Routine 01/21/23 12:35 Consult Gastroenterology Routine 01/23/23 08:40 Consult Gastroenterology Routine Procedures Performed Operation Date: 01/24/23 16:30 Actual Procedures p Esophagogastroduodenoscopy(Not Applicable) - Luis Fernando Davila MD Pending Results Patient Have Any Pending Studies at Discharge: No Discharge Instructions Given to Patient (Per Discharging Provider) You were admitted for concerns of bleeding. Your hemoglobin remained stable since admission and scope of your stomach did not reveal any active source of bleed to address. Your kidney doctor is given medications to help boost blood stores. You will need close monitoring of your blood levels by your PCP and Senior Lead Software Engineer (kidney doctor). There were no changes to your medications since admission. Please continue all home medications as previously directed by your PCP and Kidney doctor. Prior to discharge, it was noted you had eye irritation concerning for bacterial infection. You'll be sent home with erythromycin prescription to your pharmacy. Please apply ointment 4 times a day for seven days (02/02) Please follow up with PCP and Kidney Doctor, as well a Stomach Doctor (GI) to discuss ongoing symptoms and anemia (low blood count). It is suspected that low blood levels are mostly related to chronic kidney disease requiring dialysis. -CBC in 1 week time -Resume Dialysis on as scheduled Home Health Attestation I certify that this patient is under my care and that I, or a physicians medical support assistant working with me, had a face to-face encounter that meets the home health [id number] encounter requirements with this patient. The encounter with the patient was in whole, or in part, for the following medical condition, which is the primary reason for home health care (list medical condition): lethargy-rectal bleed I certify that, based on my findings, the following services are medically necessary home health services: My clinical findings support the need for the above services because: OT Assess ADL Status and Restore Function w ADLs PT Assessment for Endurance / Balance / Strength PT Eval for Safety and Mobility PT Eval for Safety, Gait Training, Assistive Devices PT Gait and Balance Training, Strengthening and Safety Skilled Nsg Assessment Further, I certify that my clinical findings support that this patient is homebo und (i.e. absences from home require considerable and taxing effort and are for medical reasons or latter day services or infrequently or of short duration when for other reasons) because: Chair Bound; Requires Transfer Assist Transportation Assistance/Unable to Leave Home Unassisted Certification for Home Health Services: Based on the above findings, I certify that this patient is confined to the home and needs intermittent correction care, physical therapy and/or speech therapy or continues to need occupational therapy. The patient is under my care, and I have initiated the establishment of the plan of care. This patient will be followed by a physician who will periodically review the plan of care. Total Time Total Time Spent Total Time Spent (In Minutes): 45
--- NOTE | 2023-01-27 16:07 | GI REPORT ---
Patient Name: Kami Hassan Procedure Date: 01/24/2023 11:42 AM Date of : 1945 Admit Type: Inpatient Age: 77 Gender: Female Attending MD: Luis Fernando Davila MD, Procedure: Upper GI endoscopy Providers: Luis Fernando Davila MD Referring MD: Katherine Colmenares Md Indications: Anemia Medicines: Propofol per Anesthesia Complications: No immediate complications. Estimated Blood Loss: Estimated blood loss: none. Procedure: Pre-Anesthesia Assessment: - Prior to the procedure, a History and Physical was performed, and patient medications, allergies and sensitivities were reviewed. The patient's tolerance of previous anesthesia was reviewed. - The risks and benefits of the procedure and the sedation options and risks were discussed with the patient. All questions were answered and informed consent was obtained. - Patient identification and proposed procedure were verified prior to the procedure by the physician and the nurse. The procedure was verified in the procedure room. - Pre-procedure physical examination revealed no contraindications to sedation. After obtaining informed consent, the endoscope was passed under direct vision. Throughout the procedure, the patient's blood pressure, pulse, and oxygen saturations were monitored continuously. The Scope was introduced through the mouth, and advanced to the second part of duodenum. The upper GI endoscopy was accomplished without difficulty. The patient tolerated the procedure well. Findings: The examined esophagus was normal. The entire examined stomach was normal. The duodenal bulb and second portion of the duodenum were normal. Impression: - Normal esophagus. - Normal stomach. - Normal duodenal bulb and second portion of the duodenum. - No specimens collected. Recommendation: - [facility]. - No evidence of overt GI bleeding. - Continue supportive care and transfuse PRBC as needed. - Recall GI as needed. Luis Fernando Davila MD 01/24/2023 12:00:51 PM This report has been signed electronically. Note Initiated On: 01/24/2023 11:42 AM Number of Addenda: 0 I attest to the content of the Intraoperative Record and orders documented therein, exceptions below {[id number]}
--- NOTE | 2023-01-27 16:57 | Dialysis Progress Note ---
Date of Service January 27, 2023 Assessment & Plan (1) Hemodialysis status: Plan: ESRD patient TTS schedule and she did receive dialysis as an inpatient. Patient tolerated dialysis well yesterday. No signs of volume overload. No indication for dialysis today. Next dialysis would normally be 01/28 >> however OP unit is having a planned power outage and her tx was to be rescheduled in any event HD today from neph standpoint stable for d/c thereafter Care coordinated w/ Dr Colmenares. (2) Rectal bleeding: Plan: Acute on chronic possible rectal bleeding. Already been evaluated by gastroenterology and she did receive 1 unit of blood transfusion. EGD unremarkable this admission. Colonoscopy 09/2022 w/ int/ext hemorrhoids > steroid cream recommendted Patient will be receiving Epogen 61646 units with dialysis (3) Anemia: Plan: hemoglobin of 8.6 today. Continue Epogen with dialysis as above Admission and Anticipated Discharge Date Admission Date: January 21, 2023 Subjective seen on dialysis at 1130; no sob, no pain, no further bleeding Review of Systems 2 Review of Systems: All systems reviewed & are unremarkable except as noted in Subjective Physical Exam 2 Constitutional: well developed and well nourished Eyes: EOM intact bilaterally ENMT: Ears: no external ear abnormality Nose: no external nose abnormality Mouth: + dry oral mucous membranes Neck: no nuchal rigidity Respiratory: normal respiratory effort Auscultation: + diminished lung sounds Cardiovascular: Rate/Rhythm: regular rate and regular rhythm Extremities: + AV fistula; no edema Gastrointestinal (Abdomen): Inspection/Auscultation: normal bowel sounds P ercussion/Palpation: abdomen soft; abdomen nontender Musculoskeletal: Extremities: strength 5/5 throughout Skin: no rashes, warm and dry Neurologic: caballero, fluent speech, no tremor Results & Data Vital Signs (Past 12 Hours) Vital Signs Temp Pulse Pulse Pulse Pulse Resp BP 01/27/23 15:25 36.6 C 64 52 L 67 16 01/27/23 15:00 36.6 C 67 16 01/27/23 14:30 51 L 117/52 L 01/27/23 14:00 54 L 96/41 L 01/27/23 13:30 54 L 103/27 L 01/27/23 13:00 54 L 103/27 L 01/27/23 12:30 54 L 103/50 L 01/27/23 12:00 55 L 94/35 L 01/27/23 11:30 52 L 94/47 L 01/27/23 11:00 56 L 106/56 L 01/27/23 10:42 54 L 01/27/23 10:42 01/27/23 10:35 51 L 106/60 01/27/23 07:33 36.4 C L 64 18 BP Pulse Ox O2 Del Method O2 Flow Rate 01/27/23 15:25 121/72 91 01/27/23 15:00 121/72 91 Nasal Cannula 01/27/23 14:30 01/27/23 14:00 01/27/23 13:30 01/27/23 13:00 01/27/23 12:30 01/27/23 12:00 01/27/23 11:30 01/27/23 11:00 01/27/23 10:42 01/27/23 10:42 Nasal Cannula 2 01/27/23 10:35 01/27/23 07:33 104/55 L 91 Nasal Cannula 2.0 Laboratory Results 01/27/23 05:53 01/27/23 05:53 (3) Anemia Anemia type: unspecified type Qualified Code(s): D64.9 - Anemia, unspecified
== END 2023-01-27 16:51 | disposition home health service (06) | DRG 377 ==
LOC: ED 09:54 → SUATTDRO 11:54 → EDINP 11:54 → 4W 14:18

== ENCOUNTER 2023-03-05 10:09 | Inpatient (IN) ==
--- NOTE | 2023-03-05 10:33 | Emergency Department Note ---
Impression & Plan Pulmonary edema, Acute UTI (urinary tract infection), Respiratory failure, Acute renal failure, Elevated troponin I level ED Provider Note NAME: CHESTER FRENCH AGE: 77 SEX: F : 1945 ARRIVES VIA: Ambulance INFORMANT: Patient, EMS ED PROVIDER(S): Angel Srinivasan DO CHIEF COMPLAINT: Respiratory distress HPI: The patient is a 77-year-old female who presented to the emergency department by ambulance with shortness of breath and respiratory distress. The patient has a history of renal failure with dialysis dependence. She has not been to dialysis in 4 days. The patient was exhibiting an alteration in her mental status. She was also very hypoxic. She was placed on BiPAP prior to arrival. ROS: See above HPI for pertinent positives & negatives. A total of 10 systems reviewed and were otherwise negative. PAST MEDICAL HISTORY: See Below PAST SURGICAL HISTORY: See Below FAMILY HISTORY: See Below SOCIAL HISTORY: See Below HOME MEDICATIONS: See Below ALLERGIES: See Below VITALS: See Below PHYSICAL EXAMINATION: GENERAL: The patient is listless and slow to respond to questioning. EYES: The conjunctivae are clear. The pupils are round and reactive. EARS, NOSE, MOUTH AND THROAT: The nose is without any evidence of any deformity. NECK: The neck is nontender and supple. RESPIRATORY: Shallow respirations were noted. There were diminished breath sounds noted throughout. CARDIOVASCULAR: Regular rate and rhythm noted there no murmurs rubs or gallops normal S1 normal S2. GASTROINTESTINAL: The abdomen is soft. Abdomen is nontender. MUSCULOSKELETAL/EXTREMITIES: There is no evidence of gross deformity full range of motion is noted in the hips and shoulders. SKIN: Skin was warm and dry. There is no significant pedal edema. NEUROLOGIC: Patient is awake and responsive verbal stimuli. Strength was symmetric but diminished. MEDICAL DECISION MAKING: The patient is a 77-year-old female who presented to the emergency department for an evaluation of difficulty breathing. The patient was found to have an altered mental status. She was also hypoxic. She was placed on BiPAP prior to arrival. The patient was kept on BiPAP in the emergency department. Mental status slowly improved while she was in emergency department. I discussed patient's laboratory and radiographic studies with her. She was started on a course of IV antibiotics for presumed urinary tract infection noted on urinalysis. I discussed her condition with the on-call [facility] hospitalist. They have agreed to evaluate the patient in the emergency department for further management and disposition. The patient has a history of renal failure. I do feel that she may require dialysis at some point in the next 24 hours. Triage Nursing notes reviewed. Prior medical records reviewed Vital Signs: reviewed and remarkable for hypoxia. Differential diagnosis: Reactive airway disease, pneumonia, pneumothorax, COPD, CHF, infections, cardiac ischemia, pulmonary embolism, musculoskeletal, gastrointestinal, as well as other pathologies. ER treatment provided: See below Diagnostics interpreted by me: ECG: EKG was obtained in the emergency department. My interpretation is sinus rhythm at 73 bpm. Left bundle branch block pattern was noted. Nonspecific ST segment abnormalities were also appreciated. This was compared to a tracing from January 21, 2023. No significant changes were noted Cardiac Monitoring: An order was placed for continuous cardiac monitoring. The monitor shows a rate of 67 bpm with sinus rhythm. Laboratory studies: As stated above and show below. Imaging studies: See below. Radiographic imaging was reviewed by myself Consultation(s): I discussed his case with Monalisa who is on-call for the [facility] ED COURSE: Procedures: none Critical Care: I have personally spent greater than 35 minutes of critical care time in the direct management of this patient. This includes bedside care, interpretation of diagnostic studies, and testing, discussion with consultants, patient, and family members, and other required patient management activities. This 35 minutes is in excess of all separately billable procedures. Past Med/Surg History Medical History Hypotension End stage chronic kidney disease AV fistula R arm Limb alert care status R arm History of recent hospitalization d/c 09/09/22>per medical record, pt sent to ER at [facility] following dialysis for reddened sores on her buttocks. Admitting dx was enterococcus UTI, decubitus ulcer and sacral cellulitis. Difficult intravenous access Black stools Mobility impaired pt non compliant with hx pt treatments / PT IS IN WHEELCHAIR/TOTAL ASSIST Poor short term memory [place] (hard of hearing) COPD (chronic obstructive pulmonary disease) no medications for currently History of stroke 2019- pts spouse poor historian pt denies hx stroke History of anesthesia reaction "hard time waking up" Hx: recurrent pneumonia History of COVID-19 ? early 2021- mild congestion, no hospitalization, no current issues Non-ST elevation UT (NSTEMI) pt spouse not sure/ mild ? remembers something mentioned in hx/ ? details ESRD (end stage renal disease) on dialysis tues, thur & sat ([place]) Aspiration pneumonia HX Morbid obesity Parkinson disease Rheumatoid arthritis ? current status/no meds for Chronic diastolic heart failure EF 50% on 01/2020 echo RACHEL (iron deficiency anemia) Subdural hematoma hx fall 2019 - tx to [facility]/no surgical intervention LBBB (left bundle branch block) RENÉ on CPAP Depression Meniere's disease Generalized anxiety disorder Dyslipidemia Restless leg syndrome Diabetes mellitus, type II hx / NO MEDS Hypothyroidism HTN (hypertension) Surgical History Hx of arteriovenostomy for renal dialysis right arm History of tubal ligation History of carpal tunnel surgery B/L History of orthopedic surgery " bilat heel surgery" H/O sinus surgery Hx of total knee arthroplasty B/L Family History Other AAA (abdominal aortic aneurysm) Diabetes Family history non-contributory Hypertension Myotonic dystrophy Social History Smoking Status: Unknown if ever smoked Tobacco Type: Cigarettes Cigarettes Per Day: 0.25ppd; Second Hand Exposure: No; Do You Dip or Chew Tobacco: No; Hx Alcohol Use: No Hx Substance Use: No Preferred Language: Angolan Communication Ability: Effective Communication Ability Comment: pt sometimes has difficulty understanding things, is POA Residential Real Estate Assistant Required: No Beliefs That Will Affect Care: None marital status: Current Living Situation: Spouse Current Living Situation Comment: is caregiver, also uses [facility] home care Feels Safe at Home: Yes Assistive Devices: Hospital Bed and Mechanical Lift Allergies Allergies Allergy/AdvReac Type Severity Reaction Status Date / Time No Known Allergies Allergy Verified 03/05/23 12:17 Home Meds Home Medications Medication Instructions Recorded Confirmed aspirin 81 mg tablet,delayed 162 mg PO QAM 11/15/21 03/05/23 release atorvastatin 80 mg tablet 80 mg PO QPM 11/15/21 03/05/23 carbidopa 25 mg-levodopa 100 mg 1 tab PO TIDM 11/15/21 03/05/23 tablet docusate sodium 100 mg capsule 100 mg PO Q2D 11/15/21 03/05/23 (Colace) isosorbide mononitrate 30 mg 30 mg PO QPM 11/15/21 03/05/23 tablet,extended release 24 hr levothyroxine 125 mcg tablet 125 mcg PO QAM 11/15/21 03/05/23 lidocaine-prilocaine 2.5 %-2.5 % 1 applic topical DIRECTED PRN 1 11/15/21 03/05/23 topical cream HR PRIOR TO DIALYSIS pregabalin 100 mg capsule 100 mg PO .BID 4DAYSWEEK 11/15/21 03/05/23 sertraline 100 mg tablet 100 mg PO QPM 11/15/21 03/05/23 vitamin B complex-vitamin C-folic 1 tab PO QPM 04/16/22 03/05/23 acid 0.8 mg tablet (Nanci-Samuel) pantoprazole 20 mg tablet,delayed 20 mg PO BID 05/23/22 03/05/23 release acetaminophen 325 mg tablet 650 mg PO Q6H PRN Pain 09/05/22 03/05/23 (Tylenol) epinephrine 0.3 mg/0.3 mL 0.3 mg IM DIRECTED PRN Allergic 09/05/22 03/05/23 injection, auto-injector (EpiPen) Reaction hydrocortisone 2.5 % topical cream 1 applic NE DAILY PRN Hemorrhoids 09/05/22 03/05/23 with perineal applicator meclizine 12.5 mg tablet 12.5 mg PO TID PRN Dizziness 09/05/22 03/05/23 melatonin 10 mg tablet 10 mg PO HS PRN Sleep 09/05/22 03/05/23 ferric citrate 210 mg iron tablet 420 mg PO TIDM 01/21/23 03/05/23 (Auryxia) fluticasone furoate 200 1 inh inhalation DAILY 01/21/23 03/05/23 mcg-vilanterol 25 mcg/dose inhalation powder (Breo Ellipta) lidocaine-prilocaine 2.5 %-2.5 % 1 applic topical DIRECTED 01/21/23 03/05/23 topical cream pregabalin 100 mg capsule 100 mg PO .TID 3 DAYS A WEEK 01/21/23 03/05/23 Hemorroid Supp 1 supp NE DIRECTED PRN 03/05/23 03/05/23 Hemorrhoids Previous Rx's Medication Instructions Recorded nystatin 100,000 unit/gram topical 1 applic EXT BID #30 grams 09/09/22 powder (Nystop) Results & Data (ED) Vital Signs Vital Signs - 24 hr 03/05/23 10:14 03/05/23 10:16 03/05/23 10:21 Temperature Pulse Rate 73 72 Pulse Rate from SpO2 Sensor Respiratory Rate 20 Respiratory Effort / Characteristics Respiratory Depth Respiratory Pattern Blood Pressure 118/74 118/74 Blood Pressure Mean 101 88 Blood Pressure Position Sitting Pulse Oximetry 100 Oxygen Delivery Method BiPAP Fraction of Inspired Oxygen 60 SaO2/FiO2 Ratio 166 Sepsis Recent Fever Within 48 Hours No Sepsis New/Unexplained Change in Mental Status N/A Sepsis Action Taken by Nursing No Action Required 03/05/23 10:30 03/05/23 10:39 03/05/23 10:50 Temperature 37.3 C Pulse Rate 75 74 68 Pulse Rate from SpO2 Sensor 75 68 Respiratory Rate 18 18 19 Respiratory Effort / Characteristics Non-Labored Spontaneous Respiratory Depth Normal Respiratory Pattern Regular Blood Pressure 120/84 Blood Pressure Mean 96 Blood Pressure Position Pulse Oximetry 99 98 100 Oxygen Delivery Method BiPAP BiPAP Fraction of Inspired Oxygen 40 SaO2/FiO2 Ratio Sepsis Recent Fever Within 48 Hours Sepsis New/Unexplained Change in Mental Status Sepsis Action Taken by Nursing 03/05/23 11:00 03/05/23 11:10 03/05/23 11:15 Temperature 37.6 C H 37.7 C H Pulse Rate 68 69 69 Pulse Rate from SpO2 Sensor 68 69 71 Respiratory Rate 18 19 16 Respiratory Effort / Characteristics Respiratory Depth Respiratory Pattern Blood Pressure 122/61 Blood Pressure Mean 81 Blood Pressure Position Pulse Oximetry 96 95 97 Oxygen Delivery Method BiPAP BiPAP BiPAP Fraction of Inspired Oxygen SaO2/FiO2 Ratio Sepsis Recent Fever Within 48 Hours Sepsis New/Unexplained Change in Mental Status Sepsis Action Taken by Nursing 03/05/23 11:30 03/05/23 11:45 Temperature 37.7 C H 37.7 C H Pulse Rate 68 67 Pulse Rate from SpO2 Sensor 63 67 Respiratory Rate 19 22 Respiratory Effort / Characteristics Respiratory Depth Respiratory Pattern Blood Pressure 140/106 H 97/75 L Blood Pressure Mean 117 82 Blood Pressure Position Pulse Oximetry 94 98 Oxygen Delivery Method BiPAP BiPAP Fraction of Inspired Oxygen SaO2/FiO2 Ratio Sepsis Recent Fever Within 48 Hours Sepsis New/Unexplained Change in Mental Status Sepsis Action Taken by [facility] Medications Current Medication List: was personally reviewed by me Laboratory Data Attestation: I reviewed the patient's lab results. 03/05/23 10:28 03/05/23 10:28 Lab Results 03/05/23 03/05/23 03/05/23 Range/Units 10:28 10:29 10:30 WBC 13.11 H (4.8-10.8) K/ul RBC 3.13 L (4.20-5.40) M/uL Hgb 9.3 L (12.0-16.0) g/dl POC Hgb 10.2 L (12.0-16.0) g/dl Hct 30.0 L (37.0-47.0) % POC Hct 30 L (37-47) % MCV 95.8 (80.0-100.0) fL MCH 29.7 (25.0-34.0) pg MCHC 31.0 L (32.0-36.0) g/dL RDW Std Deviation 66.0 H (36.4-46.3) fL RDW Coeff of Bhavin 18.9 H (11.5-14.5) % Plt Count 278 (130-400) K/uL MPV 11.4 (9.4-12.4) fL Immature Gran % (Auto) 0.7 % Neut % (Auto) 86.6 % Lymph % (Auto) 5.4 % Arthur % (Auto) 6.6 % Eos % (Auto) 0.3 % Baso % (Auto) 0.4 % Neut # (Auto) 11.36 H (1.40-6.50) K/uL Lymph # (Auto) 0.71 L (1.20-3.40) K/uL Arthur # (Auto) 0.86 H (0.11-0.59) K/uL Eos # (Auto) 0.04 (0.00-0.50) K/uL Baso # (Auto) 0.05 (0.00-0.20) K/uL Immature Gran # (Auto) 0.09 (0.01-0.20) K/uL PT 10.8 (9.0-12.0) Seconds INR 1.0 (0.9-1.1) APTT 29 (21-31) Seconds PTT Ratio 1.0 VBG pH 7.33 L (7.36-7.41) VBG pCO2 55 H (38-50) mmHg VBG pO2 45 mmHg VBG HCO3 29 mmol/L VBG O2 Saturation 66.8 % VBG Base Excess 1.9 mEq/L POC Sodium 138 (135-144) mmol/L Sodium 140 (136-145) mmol/L POC Potassium 4.2 (3.3-5.0) mmol/L Potassium 4.2 (3.5-5.1) mmol/L POC Chloride 102 (101-112) mmol/L Chloride 99 (98-107) mmol/L Carbon Dioxide 28 (21-32) mmol/L POC Total CO2 28 (24-31) mmol/L Anion Gap 13 H (3-11) POC Anion Gap 13.0 L (16-25) mmol/L POC BUN 60 H (7-18) mg/dl BUN 63 H (6-23) mg/dl Creatinine 10.75 H* (0.6-1.2) mg/dl POC Creatinine 12.0 H* (0.6-1.3) mg/dl Est Cr Clr Drug Dosing 5.4 ml/min Est GFR ( Amer) 3.6 ml/min Est GFR (Non-Af Amer) 3.1 ml/min BUN/Creatinine Ratio 5.9 L (10-20) Glucose 119 H (70-99(Fasting)) mg/dl POC Glucose (other) 119 H (70-99) mg/dl Lactate 1.3 (0.4-2.0) mmol/L Calcium 8.4 L (8.6-10.3) mg/dl POC Ioniz Calcium Oh 1.05 L (1.12-1.32) mmol/l Magnesium 2.4 (1.7-2.4) mg/dl Total Bilirubin 0.4 (0.2-1.0) mg/dl Direct Bilirubin 0.0 (0-0.2) mg/dl AST 19 (13-39) U/L ALT 5 L (7-52) U/L Alkaline Phosphatase 100 (34-104) U/L Troponin I High Sens 274.3 H* (0-14) pg/ml B-Natriuretic Peptide 1382 H (0-100) pg/ml Total Protein 7.0 (6.0-8.3) gm/dl Albumin 3.9 (3.4-5.0) gm/dl Procalcitonin 1.31 H (0-0.5) ng/ml Urine Color Urine Appearance (Clear) Urine pH (4.5-7.5) Ur Specific [place] (1.000-1.030) Urine Protein (Negative) Urine Glucose (UA) (Negative) Urine Ketones (Negative) Urine Blood (Negative) Urine Nitrite (Negative) Urine Bilirubin (Negative) Urine Urobilinogen (Negative) Ur Leukocyte Esterase (Negative) Urine RBC (0-4) /hpf Urine WBC (0-5) /hpf Ur Epithelial Cells (0-5) /lpf Ur Renal Epithelial Cell (0-5) /lpf Urine Bacteria (Negative) Hyaline Casts (0-5) /lpf Granular Casts (0) /lpf Blood Type O Positive Antibody Screen NEGATIVE 03/05/23 Range/Units 10:31 WBC (4.8-10.8) K/ul RBC (4.20-5.40) M/uL Hgb (12.0-16.0) g/dl POC Hgb (12.0-16.0) g/dl Hct (37.0-47.0) % POC Hct (37-47) % MCV (80.0-100.0) fL MCH (25.0-34.0) pg MCHC (32.0-36.0) g/dL RDW Std Deviation (36.4-46.3) fL RDW Coeff of Bhavin (11.5-14.5) % Plt Count (130-400) K/uL MPV (9.4-12.4) fL Immature Gran % (Auto) % Neut % (Auto) % Lymph % (Auto) % Arthur % (Auto) % Eos % (Auto) % Baso % (Auto) % Neut # (Auto) (1.40-6.50) K/uL Lymph # (Auto) (1.20-3.40) K/uL Arthur # (Auto) (0.11-0.59) K/uL Eos # (Auto) (0.00-0.50) K/uL Baso # (Auto) (0.00-0.20) K/uL Immature Gran # (Auto) (0.01-0.20) K/uL PT (9.0-12.0) Seconds INR (0.9-1.1) APTT (21-31) Seconds PTT Ratio VBG pH (7.36-7.41) VBG pCO2 (38-50) mmHg VBG pO2 mmHg VBG HCO3 mmol/L VBG O2 Saturation % VBG Base Excess mEq/L POC Sodium (135-144) mmol/L Sodium (136-145) mmol/L POC Potassium (3.3-5.0) mmol/L Potassium (3.5-5.1) mmol/L POC Chloride (101-112) mmol/L Chloride (98-107) mmol/L Carbon Dioxide (21-32) mmol/L POC Total CO2 (24-31) mmol/L Anion Gap (3-11) POC Anion Gap (16-25) mmol/L POC BUN (7-18) mg/dl BUN (6-23) mg/dl Creatinine (0.6-1.2) mg/dl POC Creatinine (0.6-1.3) mg/dl Est Cr Clr Drug Dosing ml/min Est GFR ( Amer) ml/min Est GFR (Non-Af Amer) ml/min BUN/Creatinine Ratio (10-20) Glucose (70-99(Fasting)) mg/dl POC Glucose (other) (70-99) mg/dl Lactate (0.4-2.0) mmol/L Calcium (8.6-10.3) mg/dl POC Ioniz Calcium Oh (1.12-1.32) mmol/l Magnesium (1.7-2.4) mg/dl Total Bilirubin (0.2-1.0) mg/dl Direct Bilirubin (0-0.2) mg/dl AST (13-39) U/L ALT (7-52) U/L Alkaline Phosphatase (34-104) U/L Troponin I High Sens (0-14) pg/ml B-Natriuretic Peptide (0-100) pg/ml Total Protein (6.0-8.3) gm/dl Albumin (3.4-5.0) gm/dl Procalcitonin (0-0.5) ng/ml Urine Color Brown Urine Appearance Turbid A (Clear) Urine pH 6.0 (4.5-7.5) Ur Specific [place] 1.020 (1.000-1.030) Urine Protein 3+ H (Negative) Urine Glucose (UA) Negative (Negative) Urine Ketones Negative (Negative) Urine Blood 3+ H (Negative) Urine Nitrite Negative (Negative) Urine Bilirubin 1+ H (Negative) Urine Urobilinogen Negative (Negative) Ur Leukocyte Esterase 3+ H (Negative) Urine RBC >30 H (0-4) /hpf Urine WBC >30 H (0-5) /hpf Ur Epithelial Cells 10-20 H (0-5) /lpf Ur Renal Epithelial Cell 0-5 (0-5) /lpf Urine Bacteria 2+ H (Negative) Hyaline Casts 10-30 H (0-5) /lpf Granular Casts 1-5 H (0) /lpf Blood Type Antibody Screen Administered Medications Discontinued Medications Cefepime HCl 1,000 mg/ Syringe 10 mls @ 5 mls/min IV NOW STA; Protocol Stop: 03/05/23 11:35 Last Admin: 03/05/23 11:54 Dose: 5 mls/min Documented By: OH Imaging Data Attestation: I personally reviewed and interpreted this imaging study as follows: My Impression: 1 view chest x-ray was obtained in the emergency department. My interpretation is pulmonary edema, final report below Radiologist's Impression: Chest X-Ray 03/05/23 10:14 XR chest 1V portable CLINICAL HISTORY: Sepsis TECHNIQUE: Single frontal radiograph of the chest was obtained. Comparison: Comparison is made to chest radiograph 01/21/2023 FINDINGS: No lines and tubes are seen. Cardiomegaly is noted. There is prominence and cephalization of the vasculature with Reyes B lines seen. Multifocal airspace opacities are seen. No evidence of pleural effusion or pneumothorax. IMPRESSION: Cardiomegaly and moderate pulmonary edema. Airspace opacities may represent atelectasis, pneumonia, aspiration, and/or alveolar edema. ACT 112: Negative or not required by law. Electronically signed by: Gato Nix M.D. 03/05/2023 11:02 AM Discharge Plan Visit Data Chief Complaint: Respiratory Distress Stated Complaint: HYPOXIA, SEMI RESP. ED Provider: Angel Srinivasan Discharge Problem: Pulmonary edema, Acute UTI (urinary tract infection), Respiratory failure, Acute renal failure, Elevated troponin I level Patient Disposition: Admitted As Inpatient Discharge Problem: Pulmonary edema Qualifiers: Chronicity: acute Qualified Code(s): J81.0 - Acute pulmonary edema Respiratory failure Qualifiers: Chronicity: acute Respiratory failure complication: hypoxia Qualified Code(s): J96.01 - Acute respiratory failure with hypoxia Acute renal failure Qualifiers: Acute renal failure type: unspecified Qualified Code(s): N17.9 - Acute kidney failure, unspecified
[2023-03-05 10:42] LABS: iSTAT Hemoglobin 10.2 g/dl (12.0-16.0); iSTAT Ionized Calcium 1.05 mmol/l (1.12-1.32); iSTAT Potassium 4.2 mmol/L (3.3-5.0)
[2023-03-05 10:42] LABS: Base Excess VBG 1.9 mEq/L; HCO3 VBG 29 mmol/L; Oxygen Saturation VBG 66.8 %; PCO2 VBG 55 mmHg (38-50); PO2 VBG 45 mmHg; pH VBG 7.33 (7.36-7.41)
[2023-03-05 10:46] LABS: Basophils # (auto) 0.05 K/uL (0.00-0.20); Basophils % (auto) 0.4 %; Eosinophils # (auto) 0.04 K/uL (0.00-0.50); Eosinophils % (auto) 0.3 %; Hemoglobin 9.3 g/dl (12.0-16.0); Immature Granulocytes # (auto) 0.09 K/uL (0.01-0.20); Immature Granulocytes % (auto) 0.7 %; Lymphocytes # (auto) 0.71 K/uL (1.20-3.40); Lymphocytes % (auto) 5.4 %; Mean Corpuscular Hemoglobin 29.7 pg (25.0-34.0); Mean Corpuscular Volume 95.8 fL (80.0-100.0); Mean Platelet Volume 11.4 fL (9.4-12.4); Monocytes # (auto) 0.86 K/uL (0.11-0.59); Monocytes % (auto) 6.6 %; Neutrophils # (auto) 11.36 K/uL (1.40-6.50); Neutrophils % (auto) 86.6 %; Platelet Count 278 K/uL (130-400); RDW Coefficient of Variation 18.9 % (11.5-14.5); Red Blood Count 3.13 M/uL (4.20-5.40); White Blood Count 13.11 K/ul (4.8-10.8)
--- NOTE | 2023-03-05 11:03 | XRay Report ---
XR chest 1V portable CLINICAL HISTORY: Sepsis TECHNIQUE: Single frontal radiograph of the chest was obtained. Comparison: Comparison is made to chest radiograph 01/21/2023 FINDINGS: No lines and tubes are seen. Cardiomegaly is noted. There is prominence and cephalization of the vasc ulature with Reyes B lines seen. Multifocal airspace opacities are seen. No evidence of pleural effu donna or pneumothorax. IMPRESSION: Cardiomegaly and moderate pulmonary edema. Airspace opacities may represent atelectasis, pneumonia, a spiration, and/or alveolar edema. ACT 112: Negative or not required by law. Electronically signed by: Gato Nix M.D. 03/05/2023 11:02 AM
[2023-03-05 11:06] LABS: Albumin Level 3.9 gm/dl (3.4-5.0); BUN Creatinine Ratio 5.9 (10-20); Bilirubin,Total 0.4 mg/dl (0.2-1.0); Calcium 8.4 mg/dl (8.6-10.3); Creatinine Clr Calc Pharmacy 5.4 ml/min; Est GFR (African American) 3.6 ml/min; Est GFR (Non-African American) 3.1 ml/min; Magnesium 2.4 mg/dl (1.7-2.4); Potassium 4.2 mmol/L (3.5-5.1)
[2023-03-05 11:10] LABS: Partial Thromboplastin Time 29 Seconds (21-31); Prothrombin Time 10.8 Seconds (9.0-12.0)
[2023-03-05 11:11] LABS: Troponin I High Sensitivity 274.3 pg/ml (0-14)
[2023-03-05 11:32] LABS: Appearance Urine Turbid (Clear); Bilirubin Urine 1+ (Negative); Blood Urine 3+ (Negative); Color Urine Brown; Glucose Urine UA Negative (Negative); Ketones Urine Negative (Negative); Leukocyte Esterase Urine 3+ (Negative); Nitrite Urine Negative (Negative); Protein Urine 3+ (Negative); Urobilinogen Urine Negative (Negative)
[2023-03-05] MEDS ORDERED: CEFEPIME 1,000 MG in SYRINGE 0 ML IV STA (11:34)
[2023-03-05 11:41] LABS: RBC Urine >30 /hpf (0-4); WBC Urine >30 /hpf (0-5)
[2023-03-05 11:42] LABS: Bacteria Urine 2+ (Negative); Renal Epithelial Cells Urine 0-5 /lpf (0-5)
--- NOTE | 2023-03-05 11:59 | History & Physical Report ---
Date of Service March 05, 2023 Assessment & Plan (1) Respiratory failure: (2) Acute renal failure: (3) Elevated troponin I level: (4) UTI (urinary tract infection): Plan This is a 77yo F with a PMH DM II, hypothyroidism, COPD, ESRD on hemodialysis, anemia, rheumatoid arthritis, h/o sacral ulcers, history of rectal bleeding 2/2 hemorrhoids and other medical problems listed below who presents from home 2/2 SOB. Acute respiratory failure Acute metabolic encephalopathy ESRD on HD missed HD Acute on Chronic HFpEF in setting of missed HD admit to PCU discussed with Dr. Baig nephrology who is arranging emergent HD continue bipap therapy for now Acute UTI await blood/urine cultures continue empiric IV cefepime for now Anemia of end-stage renal disease Iron deficiency anemia Follows Dr. Gonzalez H&H robi, recent EGD done in January that was unremarkable continue auryxia T2DM Diet controlled, last A1c 5.8 in January monitor FBS for now will not implement sliding scale Acute/Chronic HFpEF LBBB as above volume control via HD Parkinson's disease Chronic, stable continue send Hypothyroidism Chronic, stable continue levothyroxine DVT ppx: SQ Heparin FULL CODE PCP: Yo Dispo: admit to PCU Pt was seen and examined in collaboration with Dr. herring, please see addendum A total of 78 was spent coordinating, documenting, and providing care for this patient excluding time spent in the performance of separately billed services. This included personally viewing all current laboratories and imaging studies, medication reconciliation, outpatient chart review, and discussion with specialists. History of Present Illness Chief Complaint: Shortness of breath. Primary Care Provider: Bella Villanueva MD This is a 77yo F with a PMH DM II, hypothyroidism, COPD, ESRD on hemodialysis, anemia, rheumatoid arthritis, h/o sacral ulcers, history of rectal bleeding 2/2 hemorrhoids and other medical problems listed below who presents from home 2/2 SOB. Pt is at bedside who helps elicit history. She has been doing well up until the last 4 days. She has been refusing to go to HD. notes pt has become more confused. Patient arrived via EMS requiring BiPAP therapy. She also had altered mental status. Upon arrival lab work notable for VBG pH 7.33, CO2 of 55, WBC 13.1, H&H 9.3 and 30, platelet 278, BUN 63, creatinine 10.75, electrolytes within normal limits, elevated troponin at 3-3.4, elevated BNP 1382, elevated procalcitonin 1.31 and abnormal urinalysis concerning for infection. Respiratory bio fire panel was negative.Chest x-ray concerning for moderate pulmonary edema. We were consulted for admission and emergent hemodialysis. ROS unable to be obtained from patient. She was empirically treated with IV cefepime in ED for likely urinary tract infection. Allergies Allergy/AdvReac Type Severity Reaction Status Date / Time No Known Allergies Allergy Verified 03/05/23 12:17 Home Medications Medication Instructions Recorded Confirmed Type aspirin 81 mg tablet,delayed 162 mg PO QAM 11/15/21 03/05/23 History release atorvastatin 80 mg tablet 80 mg PO QPM 11/15/21 03/05/23 History carbidopa 25 mg-levodopa 100 mg 1 tab PO TIDM 11/15/21 03/05/23 History tablet docusate sodium 100 mg capsule 100 mg PO Q2D 11/15/21 03/05/23 History (Colace) isosorbide mononitrate 30 mg 30 mg PO QPM 11/15/21 03/05/23 History tablet,extended release 24 hr levothyroxine 125 mcg tablet 125 mcg PO QAM 11/15/21 03/05/23 History lidocaine-prilocaine 2.5 %-2.5 % 1 applic topical DIRECTED PRN 1 11/15/21 03/05/23 History topical cream HR PRIOR TO DIALYSIS pregabalin 100 mg capsule 100 mg PO .BID 4DAYSWEEK 11/15/21 03/05/23 History sertraline 100 mg tablet 100 mg PO QPM 11/15/21 03/05/23 History vitamin B complex-vitamin C-folic 1 tab PO QPM 04/16/22 03/05/23 History acid 0.8 mg tablet (Nanci-Samuel) pantoprazole 20 mg tablet,delayed 20 mg PO BID 05/23/22 03/05/23 History release acetaminophen 325 mg tablet 650 mg PO Q6H PRN Pain 09/05/22 03/05/23 History (Tylenol) epinephrine 0.3 mg/0.3 mL 0.3 mg IM DIRECTED PRN Allergic 09/05/22 03/05/23 History injection, auto-injector (EpiPen) Reaction hydrocortisone 2.5 % topical cream [address] DAILY PRN Hemorrhoids 09/05/22 03/05/23 History with perineal applicator meclizine 12.5 mg tablet 12.5 mg PO TID PRN Dizziness 09/05/22 03/05/23 History melatonin 10 mg tablet 10 mg PO HS PRN Sleep 09/05/22 03/05/23 History nystatin 100,000 unit/gram topical 1 applic EXT BID #30 grams 09/09/22 03/05/23 Rx powder (Nystop) ferric citrate 210 mg iron tablet 420 mg PO TIDM 01/21/23 03/05/23 History (Auryxia) fluticasone furoate 200 1 inh inhalation DAILY 01/21/23 03/05/23 History mcg-vilanterol 25 mcg/dose inhalation powder (Breo Ellipta) lidocaine-prilocaine 2.5 %-2.5 % 1 applic topical DIRECTED 01/21/23 03/05/23 History topical cream pregabalin 100 mg capsule 100 mg PO .TID 3 DAYS A WEEK 01/21/23 03/05/23 History Hemorroid Supp [address] DIRECTED PRN 03/05/23 03/05/23 History Hemorrhoids Past Med/Surg History Medical History Hypotension End stage chronic kidney disease AV fistula R arm Limb alert care status R arm History of recent hospitalization d/c 09/09/22>per medical record, pt sent to ER at [facility] following dialysis for reddened sores on her buttocks. Admitting dx was enterococcus UTI, decubitus ulcer and sacral cellulitis. Difficult intravenous access Black stools Mobility impaired pt non compliant with hx pt treatments / PT IS IN WHEELCHAIR/TOTAL ASSIST Poor short term memory [place] (hard of hearing) COPD (chronic obstructive pulmonary disease) no medications for currently History of stroke 2019- pts spouse poor historian pt denies hx stroke History of anesthesia reaction "hard time waking up" Hx: recurrent pneumonia History of COVID-19 ? early 2021- mild congestion, no hospitalization, no current issues Non-ST elevation GA (NSTEMI) pt spouse not sure/ mild ? remembers something mentioned in hx/ ? details ESRD (end stage renal disease) on dialysis tues, thur & sat ([facility]) Aspiration pneumonia HX Morbid obesity Parkinson disease Rheumatoid arthritis ? current status/no meds for Chronic diastolic heart failure EF 50% on 01/2020 echo RACHEL (iron deficiency anemia) Subdural hematoma hx fall 2019 - tx to [facility]/no surgical intervention LBBB (left bundle branch block) RENÉ on CPAP Depression Meniere's disease Generalized anxiety disorder Dyslipidemia Restless leg syndrome Diabetes mellitus, type II hx / NO MEDS Hypothyroidism HTN (hypertension) Surgical History Hx of arteriovenostomy for renal dialysis right arm History of tubal ligation History of carpal tunnel surgery B/L History of orthopedic surgery " bilat heel surgery" H/O sinus surgery Hx of total knee arthroplasty B/L Family History Other AAA (abdominal aortic aneurysm) Diabetes Family history non-contributory Hypertension Myotonic dystrophy Social History Smoking Status: Unknown if ever smoked Tobacco Type: Cigarettes Cigarettes Per Day: 0.25ppd; Second Hand Exposure: No; Do You Dip or Chew Tobacco: No; Hx Alcohol Use: No Hx Substance Use: No Preferred Language: Thai Communication Ability: Effective Communication Ability Comment: pt sometimes has difficulty understanding things, is POA Account Solutions Analyst Required: No Beliefs That Will Affect Care: None marital status: Current Living Situation: Spouse Current Living Situation Comment: is caregiver, also uses S home care Feels Safe at Home: Yes Assistive Devices: Hospital Bed and Mechanical Lift Review of Systems Review of Systems: Unobtainable due to reduced consciousness Physical Exam Physical Exam: Please refer to DR. Herring addendum for physical exam findings Results & Data Results & Data Vital Signs (Past 12 Hours) Vital Signs Temp Pulse Resp BP Pulse Ox O2 Del Method FiO2 03/05/23 11:30 37.7 C H 68 19 140/106 H 94 BiPAP 03/05/23 11:15 37.7 C H 69 16 122/61 97 BiPAP 03/05/23 11:10 69 19 95 BiPAP 03/05/23 11:00 37.6 C H 68 18 96 BiPAP 03/05/23 10:50 37.3 C 68 19 100 BiPAP 03/05/23 10:39 74 18 98 40 03/05/23 10:30 75 18 120/84 99 BiPAP 03/05/23 10:21 72 03/05/23 10:16 73 20 118/74 100 BiPAP 60 03/05/23 10:14 118/74 Laboratory Results I have independently reviewed and interpreted patient's admitting labs including CBC, CMP, PTT, PT/INR, bnp, procalcitonin, mag and troponin. Diagnostic Findings Chest X-Ray 03/05/23 10:14 XR chest 1V portable CLINICAL HISTORY: Sepsis TECHNIQUE: Single frontal radiograph of the chest was obtained. Comparison: Comparison is made to chest radiograph 01/21/2023 FINDINGS: No lines and tubes are seen. Cardiomegaly is noted. There is prominence and cephalization of the vasculature with Reyes B lines seen. Multifocal airspace opacities are seen. No evidence of pleural effusion or pneumothorax. IMPRESSION: Cardiomegaly and moderate pulmonary edema. Airspace opacities may represent atelectasis, pneumonia, aspiration, and/or alveolar edema. ACT 112: Negative or not required by law. Electronically signed by: Gato Nix M.D. 03/05/2023 11:02 AM Medications Administered Medication List Discontinued Medications Cefepime HCl 1,000 mg/ Syringe 10 mls @ 5 mls/min IV NOW STA; Protocol Stop: 03/05/23 11:35 Last Admin: 03/05/23 11:54 Dose: 5 mls/min Documented By: STORMY ECG Additional Comments: I have independently reviewed and interpreted patient's admitting EKG which revealed: 73 bpm, qtc 493ms, no ST T wave changes COVID-19 Results Results COVID-19 Adm Lab Results: RBC 3.13 M/uL (4.20-5.40) L 03/05/23 WBC 13.11 K/ul (4.8-10.8) H 03/05/23 Hgb 9.3 g/dl (12.0-16.0) L 03/05/23 Hct 30.0 % (37.0-47.0) L 03/05/23 Plt Count 278 K/uL (130-400) 03/05/23 Neutrophils (%) (Auto) 86.6 % 03/05/23 Lymphocytes (%) (Auto) 5.4 % 03/05/23 Eosinophils # (Auto) 0.04 K/uL (0.00-0.50) 03/05/23 Immature Granulocyte % (Auto) 0.7 % 03/05/23 Neutrophils # (Auto) 11.36 K/uL (1.40-6.50) H 03/05/23 Lymphocytes # (Auto) 0.71 K/uL (1.20-3.40) L 03/05/23 Eosinophils # (Auto) 0.04 K/uL (0.00-0.50) 03/05/23 Basophils # (Auto) 0.05 K/uL (0.00-0.20) 03/05/23 Immature Granulocyte # (Auto) 0.09 K/uL (0.01-0.20) 3 Na 140 mmol/L (136-145) 03/05/23 K 4.2 mmol/L (3.5-5.1) 03/05/23 Cl 99 mmol/L (98-107) 03/05/23 CO2 28 mmol/L (21-32) 03/05/23 Anion Gap 13 (3-11) H 03/05/23 BUN 63 mg/dl (6-23) H 03/05/23 Creatinine 10.75 mg/dl (0.6-1.2) H* 03/05/23 BUN/Creatinine Ratio 5.9 (10-20) L 03/05/23 Glucose Level 119 mg/dl (70-99(Fasting)) H 03/05/23 Ca 8.4 mg/dl (8.6-10.3) L 03/05/23 Total Bilirubin 0.4 mg/dl (0.2-1.0) 03/05/23 Direct Bilirubin 0.0 mg/dl (0-0.2) 03/05/23 AST/SGOT 19 U/L (13-39) 03/05/23 ALT/SGPT 5 U/L (7-52) L 03/05/23 Alkaline Phosphatase 100 U/L (34-104) 03/05/23 Total Protein 7.0 gm/dl (6.0-8.3) 03/05/23 Albumin 3.9 gm/dl (3.4-5.0) 03/05/23 Procalcitonin 1.31 ng/ml (0-0.5) H 03/05/23 PTT 29 Seconds (21-31) 03/05/23 INR 1.0 (0.9-1.1) 03/05/23 Adenovirus (PCR) Not Detected (NotDetected) 03/05/23 B. parapertussis DNA (PCR) Not Detected (NotDetected) 02/15 B. pertussis DNA (PCR) Not Detected (NotDetected) 03/05/23 C. pneumoniae DNA (PCR) Not Detected (NotDetected) 3 Coronavirus Type OC43 (PCR) Not Detected (NotDetected) Coronavirus Type HKU1 (PCR) Not Detected (NotDetected) Coronavirus Type 229E (PCR) Not Detected (NotDetected) COVID-19 PCR Not Detected (NotDetected) 03/05/23 Coronavirus Type NL63 (PCR) Not Detected (NotDetected) Human Metapneumovirus (PCR) Not Detected (NotDetected) Influenza Virus Type A (PCR) Not Detected (NotDetected) Influenza Virus Type B (PCR) Not Detected (NotDetected) M. pneumoniae (PCR) Not Detected (NotDetected) 03/05/23 Parainfluenza Type 1 (PCR) Not Detected (NotDetected) 02/15 Parainfluenza Type 2 (PCR) Not Detected (NotDetected) 02/15 Parainfluenza Type 3 (PCR) Not Detected (NotDetected) 02/15 Parainfluenza Type 4 (PCR) Not Detected (NotDetected) 02/15 RSV (PCR) Not Detected (NotDetected) 03/05/23 Enterovirus/Rhinovirus (PCR) Not Detected (NotDetected) Chest X-Ray 03/05/23 Code Status & VTE Plan Code Status FULL CODE VTE Prophylaxis Plan VTE Prophylaxis will be ordered: Yes Supervising Physician Co-Signing Physician Notes I have seen and discussed the case with the collaborating TAD. I agree with the above H&P. I have reviewed and confirmed the patients medical history, the findings on physical examination, and the patients diagnosis and treatment plan with Darya MISHRA and agree with the information documented. Ms. Hassan is a 77 year old woman with ESRD who is admitted due to encephalopathy with concern for UTI and missed dialysis. provided history and reports patient has been encephalopathic for 2 days prompting presentation--stating that this is consistent with her history of UTI. has been seeking terminal computer operator placement for patient. Physical exam is notable for an encephalopathic woman, not following commands, but maintaining airway and tolerating bipap. Trace BLE edema. difficult to appreciate breath sounds secondary to patient participation. Labs c/w ESRD but no electrolyte abnormalities. Patient with acute hypoxic resp failure and encephalopathy iso missed HD and concern for UTI. Plan for infectious work up and coverage with cefepime in interim; Nephrology for immediate dialysis and close monitoring in PCU Rest of plan as above (1) Respiratory failure Chronicity: acute Respiratory failure complication: hypoxia Qualified Code(s): J96.01 - Acute respiratory failure with hypoxia (2) Acute renal failure Acute renal failure type: unspecified Qualified Code(s): N17.9 - Acute kidney failure, unspecified (4) UTI (urinary tract infection) Hematuria presence: with hematuria Urinary tract infection type: acute cystitis Qualified Code(s): N30.01 - Acute cystitis with hematuria
[2023-03-05 12:38] LABS: Adenovirus PCR Not Detected (NotDetected); Bordetella parapertussis PCR Not Detected (NotDetected); Bordetella pertussis PCR Not Detected (NotDetected); Chlamydia pneumoniae PCR Not Detected (NotDetected); Coronavirus 229E PCR Not Detected (NotDetected); Coronavirus CoV-2 (COVID19)PCR Not Detected (NotDetected); Coronavirus HKU1 PCR Not Detected (NotDetected); Coronavirus NL63 PCR Not Detected (NotDetected); Coronavirus OC43PCR Not Detected (NotDetected); Human Metapneumovirus PCR Not Detected (NotDetected); Influenza A PCR Not Detected (NotDetected); Influenza B PCR Not Detected (NotDetected); Mycoplasma pneumoniae PCR Not Detected (NotDetected); Parainfluenza Virus 1 PCR Not Detected (NotDetected); Parainfluenza Virus 2 PCR Not Detected (NotDetected); Parainfluenza Virus 3 PCR Not Detected (NotDetected); Parainfluenza Virus 4 PCR Not Detected (NotDetected); Respiratory Syncytial VirusPCR Not Detected (NotDetected); Rhinovirus/Enterovirus PCR Not Detected (NotDetected)
[2023-03-05] MEDS ORDERED: ACETAMINOPHEN 325 MG TAB PO PRN (13:33)
[2023-03-05] MEDS ORDERED: POLYETHYLENE (MIRALAX) 17 GM PACK PO PRN (13:33)
[2023-03-05] MEDS ORDERED: ONDANSETRON INJ 2 MG/ML 2 ML VIAL IV PRN (13:33)
[2023-03-05] MEDS: DOCUSATE SODIUM 100 MG CAP PO SCH (14:09)
--- NOTE | 2023-03-05 14:17 | Nephrology Consultation ---
Date of Consultation March 05, 2023 Assessment & Plan (1) ESRD (end stage renal disease) on dialysis: ESRD on chronic hemodialysis but patient has refused to go to dialysis and then developed worsening confusion and pulmonary edema causing significant shortness of breath and respiratory failure. We are doing dialysis right now and hopefully this will make her symptoms better. Her normal dialysis day is TTS so may have to do her again tomorrow depending on nursing Available. AVF is tricky to cannulate and also had Infiltration. (2) Respiratory failure: (3) Pulmonary edema: Respiratory failure requiring BiPAP predominantly related with pulmonary edema. Patient has not had dialysis 5 days now and has developed pulmonary edema causing respiratory failure. We are doing dialysis right now and we will plan to take as much as we can take--going for 3.5 to 4 kg. Respiratory virus panel was negative. She is getting empiric antibiotics History of Present Illness Reason for Consultation: Dialysis patient admitted with shortness of breath after missing dialysis Attending Physician: Katherine Colmenares MD History of Present Illness 77-year-old female with ESRD on hemodialysis Friday dialysis at the [facility] dialysis unit, longstanding DM II, hypothyroidism, COPD, anemia, rheumatoid arthritis, h/o sacral ulcers, history of rectal bleeding who presented to the hospital because of increasing shortness of breath. She has been doing well up until the last 4 days. She has been refusing to go to HD and her last dialysis was on Friday last week. has noticed that pt has become more confused. Patient arrived via EMS requiring BiPAP therapy. She also had altered mental status. Upon arrival lab work notable for VBG pH 7.33, CO2 of 55, WBC 13.1, H&H 9.3 and 30, platelet 278, BUN 63, creatinine 10.75, electrolytes within normal limits, elevated troponin at 3-3.4, elevated BNP 1382, elevated procalcitonin 1.31 and abnormal urinalysis concerning for infection. Respiratory bio fire panel was negative.Chest x-ray concerning for moderate pulmonary edema. She was empirically treated with IV cefepime in ED for likely urinary tract infection. She is getting emergent hemodialysis for pulmonary edema Review of systems--- unable to be obtained from patient. Based on the information available so far it appears patient has been refusing to go to dialysis and has become increasingly short of breath and more confused. Physical examination: Patient appears confused and in significant respiratory distress requiring BiPAP. 96% on BiPAP with 40% oxygen Mucous membrane is moist neck is supple jugular venous distention present Chest bilateral diminished breath sounds with basal crackles CVS S1-S2 regular soft systolic murmur heard Abdomen is soft nontender Extremities shows 1+ edema Allergies Allergy/AdvReac Type Severity Reaction Status Date / Time No Known Allergies Allergy Verified 03/05/23 12:17 Home Medications Medication Instructions Recorded Confirmed Type aspirin 81 mg tablet,delayed 162 mg PO QAM 11/15/21 03/05/23 History release atorvastatin 80 mg tablet 80 mg PO QPM 11/15/21 03/05/23 History carbidopa 25 mg-levodopa 100 mg 1 tab PO TIDM 11/15/21 03/05/23 History tablet docusate sodium 100 mg capsule 100 mg PO Q2D 11/15/21 03/05/23 History (Colace) isosorbide mononitrate 30 mg 30 mg PO QPM 11/15/21 03/05/23 History tablet,extended release 24 hr levothyroxine 125 mcg tablet 125 mcg PO QAM 11/15/21 03/05/23 History lidocaine-prilocaine 2.5 %-2.5 % 1 applic topical DIRECTED PRN 1 11/15/21 03/05/23 History topical cream HR PRIOR TO DIALYSIS pregabalin 100 mg capsule 100 mg PO .BID 4DAYSWEEK 11/15/21 03/05/23 History sertraline 100 mg tablet 100 mg PO QPM 11/15/21 03/05/23 History vitamin B complex-vitamin C-folic 1 tab PO QPM 04/16/22 03/05/23 History acid 0.8 mg tablet (Nanci-Samuel) pantoprazole 20 mg tablet,delayed 20 mg PO BID 05/23/22 03/05/23 History release acetaminophen 325 mg tablet 650 mg PO Q6H PRN Pain 09/05/22 03/05/23 History (Tylenol) epinephrine 0.3 mg/0.3 mL 0.3 mg IM DIRECTED PRN Allergic 09/05/22 03/05/23 History injection, auto-injector (EpiPen) Reaction hydrocortisone 2.5 % topical cream 1 applic [place] DAILY PRN Hemorrhoids 09/05/22 03/05/23 History with perineal applicator meclizine 12.5 mg tablet 12.5 mg PO TID PRN Dizziness 09/05/22 03/05/23 History melatonin 10 mg tablet 10 mg PO HS PRN Sleep 09/05/22 03/05/23 History nystatin 100,000 unit/gram topical 1 applic EXT BID #30 grams 09/09/22 03/05/23 Rx powder (Nystop) ferric citrate 210 mg iron tablet 420 mg PO TIDM 01/21/23 03/05/23 History (Auryxia) fluticasone furoate 200 1 inh inhalation DAILY 01/21/23 03/05/23 History mcg-vilanterol 25 mcg/dose inhalation powder (Breo Ellipta) lidocaine-prilocaine 2.5 %-2.5 % 1 applic topical DIRECTED 01/21/23 03/05/23 History topical cream pregabalin 100 mg capsule 100 mg PO .TID 3 DAYS A WEEK 01/21/23 03/05/23 History Hemorroid Supp 1 supp [place] DIRECTED PRN 03/05/23 03/05/23 History Hemorrhoids Patient History Medical History Hypotension End stage chronic kidney disease AV fistula R arm Limb alert care status R arm History of recent hospitalization d/c 09/09/22>per medical record, pt sent to ER at [facility] following dialysis for reddened sores on her buttocks. Admitting dx was enterococcus UTI, decubitus ulcer and sacral cellulitis. Difficult intravenous access Black stools Mobility impaired pt non compliant with hx pt treatments / PT IS IN WHEELCHAIR/TOTAL ASSIST Poor short term memory [place] (hard of hearing) COPD (chronic obstructive pulmonary disease) no medications for currently History of stroke 2019- pts spouse poor historian pt denies hx stroke History of anesthesia reaction "hard time waking up" Hx: recurrent pneumonia History of COVID-19 ? early 2021- mild congestion, no hospitalization, no current issues Non-ST elevation [place] (NSTEMI) pt spouse not sure/ mild ? remembers something mentioned in hx/ ? details ESRD (end stage renal disease) [facility] Aspiration pneumonia HX Morbid obesity Parkinson disease Rheumatoid arthritis ? current status/no meds for Chronic diastolic heart failure EF 50% on 01/2020 echo RACHEL (iron deficiency anemia) Subdural hematoma hx fall 2019 - tx to [facility]/no surgical intervention LBBB (left bundle branch block) RENÉ on CPAP Depression Meniere's disease Generalized anxiety disorder Dyslipidemia Restless leg syndrome Diabetes mellitus, type II hx / NO MEDS Hypothyroidism HTN (hypertension) Surgical History Hx of arteriovenostomy for renal dialysis right arm History of tubal ligation History of carpal tunnel surgery B/L History of orthopedic surgery " bilat heel surgery" H/O sinus surgery Hx of total knee arthroplasty B/L Family History Other AAA (abdominal aortic aneurysm) Diabetes Family history non-contributory Hypertension Myotonic dystrophy Social History Smoking Status: Unknown if ever smoked Tobacco Type: Cigarettes Cigarettes Per Day: 0.25ppd; Second Hand Exposure: No; Do You Dip or Chew Tobacco: No; Hx Alcohol Use: No Hx Substance Use: No Preferred Language: Burundian Communication Ability: Effective Communication Ability Comment: pt sometimes has difficulty understanding things, is POA Frame Straightener Required: No Beliefs That Will Affect Care: None marital status: Current Living Situation: Spouse Current Living Situation Comment: is caregiver, also uses S home care Feels Safe at Home: Yes Assistive Devices: Hospital Bed and Mechanical Lift Results & Data Vital Signs (Past 12 Hours) Vital Signs Temp Pulse Pulse Resp BP Pulse Ox O2 Del Method 03/05/23 13:05 36.6 C 67 03/05/23 12:59 BiPAP 03/05/23 12:59 96 BiPAP 03/05/23 12:52 70 18 96 03/05/23 12:52 124/67 03/05/23 12:45 90 03/05/23 12:34 69 20 98 03/05/23 12:34 105/66 03/05/23 12:30 37.7 C H 80 19 97 03/05/23 12:15 114/64 03/05/23 12:15 37.7 C H 66 20 97 03/05/23 12:01 37.7 C H 67 33 H 105/55 L 94 BiPAP 03/05/23 11:45 37.7 C H 67 22 97/75 L 98 BiPAP 03/05/23 11:30 37.7 C H 68 19 140/106 H 94 BiPAP 03/05/23 11:15 37.7 C H 69 16 122/61 97 BiPAP 03/05/23 11:10 69 19 95 BiPAP 03/05/23 11:00 37.6 C H 68 18 96 BiPAP 03/05/23 10:50 37.3 C 68 19 100 BiPAP 03/05/23 10:39 74 18 98 03/05/23 10:30 75 18 120/84 99 BiPAP 03/05/23 10:21 72 03/05/23 10:16 73 20 118/74 100 BiPAP 03/05/23 10:14 118/74 FiO2 03/05/23 13:05 03/05/23 12:59 03/05/23 12:59 03/05/23 12:52 03/05/23 12:52 03/05/23 12:45 03/05/23 12:34 03/05/23 12:34 03/05/23 12:30 03/05/23 12:15 03/05/23 12:15 03/05/23 12:01 03/05/23 11:45 03/05/23 11:30 03/05/23 11:15 03/05/23 11:10 03/05/23 11:00 03/05/23 10:50 03/05/23 10:39 40 03/05/23 10:30 03/05/23 10:21 03/05/23 10:16 60 03/05/23 10:14 Laboratory Results Reviewed in detail Diagnostic Findings Reviewed in detail (2) Respiratory failure Chronicity: acute Respiratory failure complication: hypoxia Qualified Code(s): J96.01 - Acute respiratory failure with hypoxia (3) Pulmonary edema Chronicity: acute Qualified Code(s): J81.0 - Acute pulmonary edema
--- OUTSIDE RECORDS SUMMARY | 2023-03-05 14:41 | External Medical Summary | Summary of Care ---
Author Name Unknown Organization [facility] Address [address] [facility] [place] [address] Phone [phone] Care Team Providers Care Complaint Analyst Name Role Phone Bella Power MD Primary Care Prov ider Reason for Visit * Reason Comments Follow Up 3m Encounter Details Date Type Department Care Team (Late st Contact Info) Description 02/24/2023 2:00 PM EST Office Visit Hematology/Oncology [facility] [place] [address] [facility] [place] [id number] Nita Pino CRNP [address] [place] [id number] ESRD on dialysis (HCC)*; Rectal bleeding; Iron deficiency anemia due to chronic blood loss Allergies No known active allergiesdocumented as of this encounter (statuses as of 03/01/2023) Medications Medication Sig Dispensed Refills Start Date End Date Status ONETOUCH DELICA LANCETS 33G MISC Up to 4 times daily 100 Each 6 11/24/2014 Active Glucose Blood (ONETOUCH ULTRA BLUE) STRP Use as directed 4 times a day as needed (Diabetes). Use up to four times a day as directed 100 Strip 11 02/03/2018 Active Nebulizers (NEBULIZER COMPRESSOR) MISCIndications:CHAIN CARRIER D, group B, by GOLD 2017 classification ([facility]) Inhale via nebulizer. Use as directed. 1 [...] Indications:COPD, group B, by GOLD 2017 classification ([facility]) Inhale by mouth 1 Puff in [...] WRAP) 30 g 11 11/09/2022 Active Nystatin 747314 UNIT/GM External Powder (Nystop) Apply topically to affected area 2 times a day. 60 g 5 11/09/2022 Active Pantoprazole Sodium 20 MG Oral Tablet Delayed Release (Protonix) Take 1 Tablet by mouth in the morning and 1 Tablet in the evening. 180 Tablet 1 11/27/2022 Active Hydrocortisone (Perianal) 2.5 % External Cream (Procto-Med HC)Indications:Hemo rrhoids, external without complications ADMINISTER INTO RECTUM OR APPLY TO EXTERNAL HEMORRHOIDS ONCE DAILY 28 g 2 12/31/2022 4 Active Isosorbide Mononitrate ER 30 MG Oral Tablet Extended Release 24 Hour (Imdur) TAKE 1 TABLET BY MOUTH DAILY 90 Tablet 3 01/14/2023 4 Active Erythromycin 5 MG/GM Ophthalmic Ointment apply 1 application into the eye(s) four times daily for 7 days 3.5 g 0 01/27/2023 Active Pregabalin 100 MG Oral Capsule (Lyrica)Indications :Primary parkinsonism Take 1 capsule by mouth twice daily. May take 1 extra capsule after dialysis. 90 Capsule 1 02/12/2023 Active Hydrocortisone Acetate 25 MG Rectal Suppository (Anusol HC) Administer 1 Suppository into the rectum at bedtime. 14 Suppository 3 02/21/2023 Active documented as of this encounter (statuses as of 03/01/2023) Active Problems Problem Noted Date Diagnosed Date Serrated polyp of colon 09/20/2022 Overview: 7 mm descending colon BMI 38.0-38.9,adult 09/12/2022 Overview: 210 Acquired hypothyroidism 06/17/2022 Last Assessment & Plan: [...] as of this encounter (statuses as of 03/01/2023) Resolved Problems Problem Noted Date Diagnosed Date Resolved Date Major depressive disorder, r ecurrent episode, moderate 08/09/2022 08/09/2022 Last Assessment & Plan: Stable on sertraline Rectal bleeding 08/09/2022 01/29/2023 Last Assessment & Plan: Needs colonoscopy scheduled -CBC Hypothyroidism 05/31/2021 05/27/2022 MDD (major depressive disord [...] as of this encounter (statuses as of 03/01/2023) Immunizations Name Administration Dates Next Due COVID-19 mRNA, LNP-s, No Pre serve, 2-Dose Series ([employer]) 01/02/2021,06/21/2020,05/24/2020 COVID-19, mRNA, LNP-s, PF, B ooster, 100mcg/0.5mg (Moderna) 07/23/2021 Covid-19, Mrna, Lnp-s, Pf, B ivalent, 50 Mcg, IM, 12 yrs and above (Moderna) 01/17/2022 Pneumococcal Conjugate Vacc, 13 Valent (Prevnar) 10/28/2014 Pneumococcal Polysaccharide PPV23 (Pneumovax) 03/22/2016,12/04/2009 Seasonal Influenza, PF, 6 M & above, IM , (FluLaval or Fluzone) 12/29/2021,01/03/2019,12/09/2017 Seasonal Influenza, Quadriva lent Hd (Fluzone [...] Sign Reading Time Taken Comments Blood Pressure 121/66 02/24/2023 1:59 PM EST Pulse 53 02/24/2023 1:59 PM EST Temperature - - Respiratory Rate 16 02/24/2023 1:59 PM EST Oxygen Saturation 90% 02/24/2023 1:59 PM EST Inhaled Oxygen Concentration - - Weight 110.6 kg (243 lb 14.4 oz) 02/24/2023 1:59 PM EST Height 157.5 cm (5' 2") 02/24/2023 1:59 PM EST Body Mass Index 44.61 02/24/2023 1:59 PM EST documented in this encounter Functional Status Functional [...] or making decisions? (5 years old or older) No 04/20/2019 documented as of this encounter Progress Notes * Nita Pino CRNP - 02/24/2023 1:47 PM EST Hematology/Oncology Outpatient [place] [address] [address] Name: Kami Hassan Date: 02/24/2023 CHIEF COMPLAINT: Kami Hassan is a 77 year old female patient of Dr. Marie Lisa here today for f/u visit today. From Patient chart confirmed with patient. HEMATOLOGY/ONCOLOGY DIAGNOSIS: Anemia of ESRD CURRENT TREATMENT: IV Venofer 100 mg at each HD session Ferrous sulfate one tablet three times a day HISTORY OF PRESENT ILLNESS: Patient with history of ESRD on HD, PD, HTN, COPD, dyslipidemia, AYSHA, T2DM, RENÉ, RA, dementia, hypothyroidism and CHF. Currently receiving HD Friday, and Friday at [facility] in [place]. Receives Venofer 100 mg IV with each [...] obtained from chart review. Admitted at [facility] in September for colonoscopy and hysteroscopy [...] as needed. Was also admitted to [facility] in August d/t infected decubitus ulcerations [...] pelvic ultrasound is recommended for further assessment. Interval History: Pt admitted at [facility] 01/21/23 - 01/27/23 for rectal vs vaginal bleeding, anemia w Hgb down to 8. Received 1U PRBC transfusion. reports pt have black tarry stools at home. However hasn't seen her stools as pt flushed them away before he can inspect them. EGD performed while pt at [facility] on 01/24wo abnormal findings. Seen by general surgery for hemorrhoidal bleeding. Incredibly high risk surgical candidate. Recommends conservative treatment. HISTORY OF PRESENT ILLNESS: Kami Hassan is a 77 year old female with a history as outlined above. Currently here for f/u visit today. Currently taking oral iron one tablet three times a day. Stool remains tarry and having BRBPR. Using hemorrhoid suppositories. Initially BRBPR stopped with this but then came back. Also using stool softeners twice a day. General surgery recommends conservative treatment as high risk for surgery. Past Medical History: Diagnosis Date (HFpEF) heart failure with preserved ejection fraction (HCC) Acute on chronic diastolic (congestive) heart failure (HCC) 03/04/2020 [facility] Allergic rhinitis 02/15/2000 acute BMI 38.0-38.9,adult 08/28/2009 Chronic Sinusitis Unspecified Controlled substance agreement signed 11/25/2016 COVID-19 10/23/2021 Cystitis 05/23/2022 admitted [facility] home on cefuroxime Dyslipidemia, goal LDL below 100 Esophagitis determined by biopsy 04/19/2022 LA grade B esophagitis, inflammation gastric antrum, body and duodenum AYSHA (generalized anxiety disorder) Hearing loss, sensorineural 01/2005 History of non-ST elevation myocardial infarction (NSTEMI) 08/24/2018 HTN (hypertension) Meniere's disease Multiple falls 04/20/2019 History of falls on the pl NSTEMI (non-ST elevated myocardial infarction) (HCC) 09/03/2018 Parkinson disease Rectal bleeding Restless leg syndrome 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 factor (HCC) 07/18/2016 SDH (subdural hematoma) ([facility]) 04/20/2019 acute Serrated polyp of colon 09/20/2022 7 mm descending colon Sleep apnea Tinnitus 01/2005 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 ([facility]) Past Surgical History: Procedure Laterality Date ARTHROPLASTY KNEE TOTAL Left Dr. Del Real CARPAL TUNNEL SURGERY Bilateral COLONOSCOPY, DIAGNOSTIC (RECTUM) 11/27/2015 normal, repeat 10 yrs/COLONOSCOPY FLEXIBLE PROXIMAL DIAGNOSTIC performed by Garrett Chang MD at ENDOSCOPY [facility] EGD, FLEXIBLE, DIAGNOSTIC 04/19/2022 esophagitis, repeat 8-12 wks / [facility] EGD, FLEXIBLE, DIAGNOSTIC 06/26/2022 normal, retained food / [facility] EXPLORATION OF MAXILLARY SINUS 03/17/1995 Sinus Surgery HYSTEROSCOPY,DIAGNOSTIC 2022 atrophic endometrium, endometrial polyp INJECTION LUMBAR/SACRAL 07/31/2015 INJECTION SPINE LUMBAR OR SACRAL performed by Quincy Prado DO at OR [facility] INJECTION LUMBAR/SACRAL 08/15/2015 INJECTION SPINE LUMBAR OR SACRAL performed by Quincy Prado DO at OR [facility] INSER MARLI CAT,W/O PUMP;5YR/OLD N/A 11/04/2019 INSERT TUNNELED CENTRAL VENOUS CATHETER AGE 6 OR OLDER performed by Ortega Montez DO at OR [facility] LIGATE/CUT OVIDUCT(S) MISCELLANEOUS ORDER ([facility] ONLY) Bilateral Heel surgery MISCELLANEOUS ORDER ([facility] ONLY) Right 3rd toe nerve decompression, Dr. Del Real [place] COLSC FLX W/RMVL OF TUMOR POLYP LESION SNARE TQ 09/20/2022 7 mm serrated polyp descending colon Social History Socioeconomic History Marital status: Spouse name: Wesley Number of children: 3 Years of education: Not on file Highest education level: Not on file Occupational History Occupation: at home Tobacco Use Smoking status: Former Packs/day: 0.25 Years: 50.00 Additional pack years: 0.00 Total pack years: 12.50 Types: Cigarettes Quit date: 04/20/1989 Years since quittin.8 Smokeless tobacco: Never Tobacco comments: smoked since 19 years of age. Smokes a pack every 3-4 days. 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 Breo Ellipta 200-25 MCG/INH Inhalation Aerosol Powder Breath Activated (fluticasone furoate-vilanterol) Inhale by mouth 1 Puff in the morning. 60 Each 0 Auryxia 1 GM 210 MG(Fe) Oral Tablet [...] DRESSING (SARAN WRAP) 30 g 11 Nystatin [id number] UNIT/GM External Powder (Nystop) Apply topically to affected area 2 times a day. 60g 5 Pantoprazole Sodium 20 MG Oral Tablet Delayed Release (Protonix) Take 1 Tablet by mouth in the morning and 1 Tablet in the evening. 180 Tablet 1 Hydrocortisone (Perianal) 2.5 % External Cream (Procto-Med HC) ADMINISTER INTO RECTUM OR APPLY TO EXTERNAL HEMORRHOIDS ONCE DAILY 28 g 2 Isosorbide Mononitrate ER 30 MG Oral Tablet Extended Release 24 Hour (Imdur) TAKE 1 TABLET BY MOUTHDAILY 90 Tablet 3 Erythromycin 5 MG/GM Ophthalmic Ointment apply 1 application into the eye(s) four times daily for 7days 3.5 g 0 Pregabalin 100 MG Oral Capsule (Lyrica) Take 1 capsule by mouth twice daily. May take 1 extra capsule after dialysis. 90 Capsule 1 Hydrocortisone Acetate 25 MG Rectal Suppository (Anusol HC) Administer 1 Suppository into the rectum at bedtime. 14 Suppository 3 No current facility-administered medications for this visit. REVIEW OF SYSTEMS: See HPI - otherwise negative OBJECTIVE: Filed Vitals: 02/24/23 1359 BP: 121/66 Pulse: 53 Resp: 16 SpO2: 90% Weight: 110.6 kg (243 lb 14.4 oz) Height: 1.575 m (5' 2") Wt Readings from Last 5 Encounters: 02/24/23 110.6 kg (243 lb 14.4 oz) 01/31/23 110.2 kg (242 lb 14.4 oz) 11/11/22 108.9 kg (240 lb) 10/04/22 105.7 kg (233 lb) 10/03/22 105.9 kg (233 lb 8 oz) PHYSICAL EXAM: Constitutional: (+) chronically ill Neuro: alert, oriented to person and place Chest: normal respiratory effort, Extremities: no edema Skin: warm and dry LABS: Results for orders placed or performed in visit on 02/24/23 SOLUBLE TRANSFERRIN RECEPTOR Result Value Ref Range Soluble Tranferrin Receptor 3.40 (H) 0.76 - 1.76 mg/L *Note: Due to a large number of results and/or encounters for the requested time period, some results have not been displayed. A complete set of results can be found in Results Review. Component Latest Ref Rng 02/24/2023 WBC 4.00 - 10.80 K/uL 8.92 RBC 3.85 - 5.15 M/uL 3.06 HGB 12.0 - 15.3 g/dL 9.2 (L) HCT 36.0 - 45.2 % 32.0 (L) MCV 81.5 - 97.5 fL 104.6 MCH 27.0 - 34.0 pg 30.1 MCHC 32.0 - 36.0 g/dL 28.8 RDW 11.5 - 15.5 % 19.6 PLT 140 - 400 K/uL 251 MPV 6.6 - 11.1 fL 10.4 Component Latest Ref Rng 02/24/2023 BUN 6 - 20 mg/dL 37 (H) Creatinine 0.5 - 1.0 mg/dL 7.1 (H) Estimated Glomerular Filtration Rate >=60 mL/min 6 (L) Sodium 135 - 146 mmol/L 141 Potassium 3.5 - 5.1 mmol/L 3.8 Chloride 98 - 107 mmol/L 100 CO2 22 - 32 mmol/L 28 Anion Gap 7 - 15 mmol/L 13 Glucose 70 - 120 mg/dL 113 Albumin 3.8 - 5.0 g/dL 4.1 AST 10 - 35 U/L 21 Alkaline Phosphatase 35 - 130 U/L 118 Bilirubin, Total <=1.2 mg/dL 0.3 Calcium 8.4 - 10.2 mg/dL 9.4 Protein 6.0 - 8.3 g/dL 7.3 ALT 10 - 35 U/L <5 (L) Component Latest Ref Rng 02/24/2023 Ferritin 13 - 150 ng/mL 179 (H) Component Latest Ref Rng 02/24/2023 Iron 33 - 151 ug/dL 70 Iron Binding Capacity 250 - 425 ug/dL 352 Transferrin Saturation Percent 15 - 55 % 20 IMPRESSION/PLAN: Anemia of ESRD Iron deficiency anemia Cause of anemia in this patient likely multifactorial including ESRD, multiple comorbid chronic illnesses, and blood loss/iron deficiency. Cannot rule out underlying bone marrow dysplasia. Pt admitted at [facility] 01/21/23 - 01/27/23 for rectal vs vaginal bleeding, anemia w Hgb down to 8. Received 1U PRBC transfusion. reports pt have black tarry stools at home. EGD performed while ptat [facility] on 01/24 wo abnormal findings. Seen by general surgery for hemorrhoidal bleeding. Incredibly high risk surgical candidate. Recommends conservative treatment. Lab results reviewed: elevated sTfR confirms ongoing iron deficiency. Hgb currently 9.2. Macrocyticindices persist. Will request documentation from HD regarding Hgb along with Venofer and Mirecera administration. Continue oral iron one tablet three times a day as patient reportedly tolerating well. Again could consider increasing dose of Venofer to 200 mg with the next five HD sessions. Can also consider changing Mircera to different formulation of LAVERNE. Will forward recommendations on to nephrology for review. Continue to follow with general surgery RTC in three months with physician with cbc/diff, cmp, iron screen, ferritin and sTfR TRINITY Dsouza documented in this encounter Nursing Notes * Ellyn Tilley, [facility] - 02/24/2023 2:00 PM EST Patient identifed by name and birthdate Do you have any concerns about pain management for today's visit? No Living Will or Advance Directive for Health Care as noted on the problem list. [facility] is a way you can talk to your provider on line through e-mail. Would you like to sign up? I can activate it for you? NO Filed Vitals: 02/24/23 1359 BP: 121/66 Pulse: 53 Resp: 16 SpO2: 90% Weight: 110.6 kg (243 lb 14.4 oz) Height: 1.575 m (5' 2") Patient was [...] Care Team (Late st Contact Info) Description 03/14/2023 1:00 PM EST Office Visit General Surgery, [facility] [address] [address] Alonso Juarez MD [address] [place] [place] [address] 05/07/2023 2:20 PM EST Office Visit Family Medicine [address] [place] [phone] Vianca Kitchen MD [address] [place] [address] [place] [address] 06/10/2023 3:00 PM EDT Laboratory Laboratory [address] [place] [phone] [address] [place] [address] 06/16/2023 2:30 PM EDT Office Visit Hematology/Oncology [facility] [place] [address] [facility] [place] [address] Cynthia Gonzalez MD [address] [facility] [place] [address] Scheduled Orders Name Type Priority Associated Diagnoses Orde r Schedule CBC WITH WBC DIFFERENTIAL Lab STAT ESRD on dialysis (HCC) Rectal bleeding Iron deficiency anemia due to chronic blood loss Expected: 05/26/2023 (Approximate), Expires: 08/26/2023 COMPREHENSIVE METABOLIC PANEL Lab STAT ESRD on dialysis (HCC) Rectal bleeding Iron deficiency anemia due to chronic blood loss Expected: 05/26/2023 (Approximate), Expires: 08/26/2023 IRON SCREEN, INCLUDING TIBC Lab STAT ESRD on dialysis (HCC) Rectal bleeding Iron deficiency anemia due to chronic blood loss Expected: 05/26/2023 (Approximate), Expires: 08/26/2023 FERRITIN Lab STAT ESRD on dialysis (HCC) Rectal bleeding Iron deficiency anemia due to chronic blood loss Expected: 05/26/2023 (Approximate), Expires: 08/26/2023 SOLUBLE TRANSFERRIN RECEPTOR Lab STAT ESRD on dialysis (HCC) Rectal bleeding Iron deficiency anemia due to chronic blood loss Expected: 05/26/2023 (Approximate), Expires: 08/26/2023 Scheduled Procedures Name Priority Associated Diagnoses Date/Ti [...] COMPLETED IN P AST YEAR FOR COPD 02/25/2024 02/24/2023 Diabetic Eye Exam Discontinued 06/19/2020, , 12/25/2016, [...] Procedure Name Priority Date/Time Associated Diagnosis Comments SOLUBLE TRANSFERRIN RECEPTOR Routine 02/24/2023 1:13 PM EST ESRD on dialysis (HCC) Rectal bleeding Iron deficiency anemia due to chronic blood loss documented in this encounter Results * (ABNORMAL) SOLUBLE TRANSFERRIN RECEPTOR (02/24/2023 1:13 PM EST) Soluble Tranferrin Receptor 3.40(H) 0.76 - 1.76 mg/L 02/28/2023 7:02 PM EST [employer] Comment: Test performed by: [employer]* [address] [place] [id number] Quality Assurance Manager: Alvarez Pabon M.D. Test Reported by Cindi Garcia, [employer]*, [address] [place], [place] Carlos Seals M.D., Ph.D., Director of Laboratories , [facility] [id number] Blood Venous blood specimen / Unknown Venipuncture / Unknown 02/24/2023 1:13 PM EST 02/24/2023 1:13 PM EST Nita PETERSEN LAB BLOOD ORDER RADHA [employer] [address] [place] [address] documented in this encounter Visit Diagnoses Diagnosis ESRD on dialysis (HCC)- Primary End stage renal disease Rectal bleeding Hemorrhage of rectum and anus Iron deficiency anemia due to chronic blood loss Iron deficiency anemia secondary to blood loss (chronic) documented in this encounter Advance Directives Documents on File Type Date Recorded Patient Cigar Binder Expl anation Power of Regrinder 12/16/2018 10:33 AM Nate r of Regrinder Latest Code Status on File Code Status [...] the patient have Health Care Power of Regrinder? No Healthcare Agents on File Name Relationship Healthcare Agent Relationshi p Communication Wesley Hassan Spouse Health Care Agent Care Teams Complaint Analyst Relationship Specialty Start Date End Date Bella Power MD [address] [place] [address] [place] [phone] PCP - General Family Medicine 04/02/19 documented as of this encounter
--- OUTSIDE RECORDS SUMMARY | 2023-03-05 14:41 | External Medical Summary | Summary of Care ---
Author Name Unknown Organization [facility] Address [address] [place] [address] Phone [phone] Care Team Providers Care Crater And Packer Name Role Phone Bella Power MD Primary Care Prov ider Encounter Details Date Type Department Care Team (Late st Contact Info) Description 03/03/2023 Orders Only Outcomes Research Department [address] [place], [place] [phone] Meg Barbosa CHRA [facility] Other*[id number] Allergies No known active allergiesdocumented as of this encounter (statuses as of 03/03/2023) Medications Medication Sig Dispensed Refills Start Date End Date Status ONETOUCH DELICA LANCETS 33G MISC Up to 4 times daily 100 Each 6 11/24/2014 Active Glucose Blood (ONETOUCH ULTRA BLUE) STRP Use as directed 4 times a day as needed (Diabetes). Use up to four times a day as directed 100 Strip 11 02/03/2018 Active Nebulizers (NEBULIZER COMPRESSOR) MISCIndications:MATERIALS BUYER D, group B, by GOLD 2017 classification [...] WRAP) 30 g 11 11/09/2022 Active Nystatin [id number] UNIT/GM External Powder (Nystop) Apply topically to [...] as of this encounter (statuses as of 03/03/2023) Active Problems Problem Noted Date Diagnosed Date [...] as of this encounter (statuses as of 03/03/2023) Resolved Problems Problem Noted Date Diagnosed Date [...] as of this encounter (statuses as of 03/03/2023) Immunizations Name Administration Dates Next Due COVID-19 mRNA, LNP-s, No Pre serve, 2-Dose Series ([employer] 01/02/2021,06/21/2020,05/24/2020 COVID-19, mRNA, LNP-s, PF, B ooster, [...] 1:00 PM EST Office Visit General Surgery, [facility] [address] [address] Alonso Juarez MD [address] [place] [address] 05/07/2023 2:20 PM EST Office Visit Family Medicine [address] [place] [phone] Vianca Kitchen MD [address] [place] [address] [place] [address] 06/10/2023 3:00 PM EDT Laboratory Laboratory [address] [place] [phone] [address] [place] [address] 06/16/2023 2:30 PM EDT Office Visit Hematology/Oncology [employer] [address] [facility] [place] [address] Cynthia Gonzalez MD [address] [place] [address] Scheduled Orders Name Type Priority Associated Diagnoses Orde r Schedule MYCODE SUBSEQUENT ADULT Lab Routine [facility] Other*[id number] Every 6 Months for 2 Occurrences starting 03/03/2023 until 03/22/2024 Scheduled Procedures Name Priority Associated Diagnoses Date/Ti [...] as of this encounter Visit Diagnoses Diagnosis [facility] Other*[id number] documented in this encounter Advance Directives Documents on File Type Date Recorded Patient Route Driver Coin Machines Expl anation Power of Scrap Bunch Maker 12/16/2018 10:33 AM Nate r of Scrap Bunch Maker Latest Code Status on File Code [...] the patient have Health Care Power of Scrap Bunch Maker? No Healthcare Agents on File Name Relationship Healthcare Agent Relationshi p Communication Wesley Hassan Spouse Health Care Agent Care Teams Crater And Packer Relationship Specialty Start Date End Date Bella Power MD [address] [place] [address] [place] [phone] PCP - General Family Medicine 04/02/19 documented as of this encounter
--- OUTSIDE RECORDS SUMMARY | 2023-03-05 14:41 | External Medical Summary | Summary of Care ---
Author Name Unknown Organization [facility] Address [address] [facility] [place] [address] Phone [phone] Care Team Providers Care Biophysics Scientist Name Role Phone Bella Power MD Primary Care Prov ider Encounter Details Date Type Department Care Team (Late st Contact Info) Description 02/26/2023 Orders Only Family Medicine [address] [phone] Bella Power MD [address] [place], [place] [address] [address] Allergies No known active allergiesdocumented as of this encounter (statuses as of 02/26/2023) Medications Medication Sig Dispensed Refills Start Date End Date Status ONETOUCH DELICA LANCETS 33G MISC Up to 4 times daily 100 Each 6 11/24/2014 Active Glucose Blood (ONETOUCH ULTRA BLUE) STRP Use as directed 4 times a day as needed (Diabetes). Use up to four times a day as directed 100 Strip 11 02/03/2018 Active Nebulizers (NEBULIZER COMPRESSOR) MISCIndications:STORE CASHIER D, group B, by GOLD 2017 classification [...] Indications:COPD, group B, by GOLD 2017 classification (HCC) Inhale by mouth 1 Puff in the [...] WRAP) 30 g 11 11/09/2022 Active Nystatin 490313 UNIT/GM External Powder (Nystop) Apply topically to [...] as of this encounter (statuses as of 02/26/2023) Active Problems Problem Noted Date Diagnosed Date [...] as of this encounter (statuses as of 02/26/2023) Resolved Problems Problem Noted Date Diagnosed Date [...] as of this encounter (statuses as of 02/26/2023) Immunizations Name Administration Dates Next Due COVID-19 mRNA, LNP-s, No Pre serve, 2-Dose Series ([employer]) 01/02/2021,06/21/2020,05/24/2020 COVID-19, mRNA, LNP-s, PF, B ooster, [...] 1:00 PM EST Office Visit General Surgery, [facility] [address] [address] Alonso Juarez MD [address] [place] [address] 05/07/2023 2:20 PM EST Telemedicine Family Medicine [address] [place] [phone] Vianca Kitchen MD [address] [place] [address] [place] [address] 06/10/2023 3:00 PM EDT Laboratory Laboratory [address] [place] [phone] [place] [address] 06/16/2023 2:30 PM EDT Office Visit Hematology/Oncology [facility] [address] [place] [address] Cynthia Gonzalez MD [address] [place] [address] Scheduled Procedures Name Priority Associated Diagnoses Date/Ti [...] Procedure Name Priority Date/Time Associated Diagnosis Comments CHEMISTRY-OUTSIDE Routine 02/18/2023 documented in this encounter Results * (ABNORMAL) CHEMISTRY-OUTSIDE (02/18/2023) Not all results display below - see scan for full detail OUTSIDE LAB (SEE SCANNED REPORT) Comment:SEE SCAN HEMAGLOBIN LABS 01-18-23 TO - CREATININE-OUTSID E LAB OUTSIDE LAB (SEE SCANNED REPORT) EGFR-OUTSIDE LAB OUT SIDE LAB (SEE SCANNED REPORT) POTASSIUM-OUTSIDE LAB OUTSIDE LAB (SEE SCANNED REPORT) GLUCOSE-OUTSIDE LAB OUTSIDE LAB (SEE SCANNED REPORT) HOURS FASTING OUTSID E LAB (SEE SCANNED REPORT) TRIGLYCERIDES-OUT SIDE LAB OUTSIDE LAB (SEE SCANNED REPORT) CHOLESTEROL-OUTSI DE LAB OUTSIDE LAB (SEE SCANNED REPORT) HDL-OUTSIDE LAB OUTS DANAE LAB (SEE SCANNED REPORT) CHOL/HDL RATIO-OUTSIDE LAB OUTSIDE LA B (SEE SCANNED REPORT) LDL (CALCULATED)-OUTS DANAE LAB OUTSIDE LAB (SEE SCANNED REPORT) LDL (DIRECT MEASURE)-OUTSIDE LAB OUTSIDE LAB (SEE SCANNED REPORT) HEMOGLOBIN, H6V-NADQSWN LAB OUTSIDE LAB (SEE SCANNED REPORT) PHOSPHORUS-OUTSID E LAB OUTSIDE LAB (SEE SCANNED REPORT) PTH-OUTSIDE LAB OUTS DANAE LAB (SEE SCANNED REPORT) MICROALBUMIN RATIO-OUTSIDE LAB OUTSIDE LA B (SEE SCANNED REPORT) PROTEIN, UA-OUTSIDE LAB OUTSIDE LAB (SEE SCANNED REPORT) HEMOGLOBIN-OUTSID E LAB 9.4(A) 12.0 - 16.0 G/DL OUTSIDE LAB (SEE SCANNED REPORT) 02/18/2023 History Per Patient LABORATORY OUTSIDE LAB (SEE SCANNED REPORT) documented in this encounter Advance Directives Documents on File Type Date Recorded Patient 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 No Healthcare Agents on File Name Relationship Healthcare Agent Relationshi p Communication Wesley Hassan Spouse Health Care Agent Care Teams Biophysics Scientist Relationship Specialty Start Date End Date Bella Power MD [address] [place] [address] [place] [id number] PCP - General Family Medicine 04/02/19 documented as of this encounter
--- OUTSIDE RECORDS SUMMARY | 2023-03-05 14:42 | External Medical Summary ---
Author Name Unknown Address Unknown Organization [id number]:[facility] [place] [id number] Laboratory Report Ordering Provider Test Date Status ÓSCAR STEVENSON 02/24/2023 13:13:25 Final Observation Date Value Abnormality Reference (Units ) Status WBC, Total 02/24/2023 13:13:25 8.92 4.00-10.8 0 (K/uL) Final RBC 02/24/2023 13:13:25 3.06 3.85-5.15 (M/uL) Final Hemoglobin 02/24/2023 13:13:25 9.2 Below low normal 12 .0-15.3 (g/dL) Final HCT 02/24/2023 13:13:25 32.0 Below low normal 36. 0-45.2 (%) Final MCV 02/24/2023 13:13:25 104.6 81.5-97.5 (fL) Final MCH 02/24/2023 13:13:25 30.1 27.0-34.0 (pg) Final MCHC 02/24/2023 13:13:25 28.8 32.0-36.0 (g/dL) Final RDW 02/24/2023 13:13:25 19.6 11.5-15.5 (%) Final Platelets 02/24/2023 13:13:25 251 140-400 (K /uL) Final MPV 02/24/2023 13:13:25 10.4 6.6-11.1 ( fL) Final Performing Location [facility] [place] [id number]
--- OUTSIDE RECORDS SUMMARY | 2023-03-05 14:42 | External Medical Summary | Summary of Care ---
Author Name Unknown Organization [facility] Address [address] [facility] [place] [address] Phone [phone] Care Team Providers Care Web Press Jogger Name Role Phone Bella Power MD Primary Care Prov ider Reason for Visit * Reason Comments Outpatient Testing Encounter Details Date Type Department Care Team (Late st Contact Info) Description 02/24/2023 1:00 PM EST Laboratory Laboratory [facility] [address] [place] [phone] [place], [facility] [address] [place] [address] Iron deficiency anemia due to chronic blood loss Allergies No known active allergiesdocumented as of this encounter (statuses as of 02/24/2023) Medications Medication Sig Dispensed Refills Start Date End Date Status ONETOUCH DELICA LANCETS 33G MISC Up to 4 times daily 100 Each 6 11/24/2014 Active Glucose Blood (ONETOUCH ULTRA BLUE) STRP Use as directed 4 times a day as needed (Diabetes). Use up to four times a day as directed 100 Strip 11 02/03/2018 Active Nebulizers (NEBULIZER COMPRESSOR) MISCIndications:FACILITATOR D, group B, by GOLD 2017 classification [...] Indications:COPD, group B, by GOLD 2017 classification ([facility]) Inhale by mouth 1 Puff [...] WRAP) 30 g 11 11/09/2022 Active Nystatin [id number] UNIT/GM External Powder (Nystop) Apply topically to [...] as of this encounter (statuses as of 02/24/2023) Active Problems Problem Noted Date Diagnosed Date [...] as of this encounter (statuses as of 02/24/2023) Resolved Problems Problem Noted Date Diagnosed Date [...] on the pl SDH (subdural hematoma) 04/20/2019 05/03/2019 Overview: acute Ecchymosis 04/20/2019 09/08/2020 Old myocardial [...] as of this encounter (statuses as of 02/24/2023) Immunizations Name Administration Dates Next Due COVID-19 mRNA, LNP-s, No Pre serve, 2-Dose Series ([employer]) 01/02/2021,06/21/2020,05/24/2020 COVID-19, mRNA, LNP-s, PF, B ooster, [...] 02/24/2023 2:00 PM EST Office Visit Hematology/Oncology [facility] [address] [facility] [address] Nita Pino CRNP [address] [facility] [place] [address] Arrived 03/14/2023 1:00 PM EST Office Visit General Surgery, [facility] [address] [address] Alonso Juarez MD [address] [facility] [place] [address] 05/07/2023 2:20 PM EST Telemedicine Family Medicine [address] [place] [phone] Vianca Kitchen MD [address] [place] [address] [place] [address] Pending Results Name Type Priority Associated Diagnoses Date /Time CBC WITH WBC DIFFERENTIAL Lab STAT Iron deficiency anemia due to chronic blood loss 02/24/2023 1:13 PM EST COMPREHENSIVE METABOLIC PANEL Lab STAT Iron deficiency anemia due to chronic blood loss 02/24/2023 1:13 PM EST FERRITIN Lab STAT Iron deficiency anemia due to chronic blood loss 02/24/2023 1:13 PM EST IRON SCREEN, INCLUDING TIBC Lab STAT Iron deficiency anemia due to chronic blood loss 02/24/2023 1:13 PM EST CBC Lab STAT Iron deficiency anemia due to chronic blood loss 02/24/2023 1:13 PM EST DIFFERENTIAL, AUTOMATED Lab STAT Iron deficiency anemia due to chronic blood loss 02/24/2023 1:13 PM EST Scheduled Procedures Name Priority Associated Diagnoses Date/Ti me COLONOSCOPY FLEXIBLE PROXIMA L DIAGNOSTIC Recall Encounter for screening colonoscopy Health Maintenance Due Date Last Done Comments Zoster Vaccines (2 of 3) 12/18/2011 10/23/2011 Depression Screening 01/22/2020 01/21/2019 COVID-19 Vaccine (6 - 2022-2 4 season) 2022 01/17/2022, 07/23/2021, 01/02/2021, Additional history exists Influenza Vaccine (FLU shot) (#1) 2022 12/29/2021, 05/31/2021, 11/16/2019, Additional history exists TSH 08/11/2023 08/10/2022, 05/15, 08/21/2020, Additional history exists O2 ASSESSMENT COMPLETED IN P AST YEAR FOR COPD 02/15/2024 02/14/2023 Diabetic Eye Exam Discontinued 06/19/2020, , 12/25/2016, Additional history exists Diabetic Foot Exam Discontinued 08/16/2020, 0 08/26/2019, 08/04/2018, Additional history exists Colonoscopy Discontinued 09/20/2022, 11/15, 11/27/2015, Additional history exists Colorectal Cancer Screening Discontinued Cologuard Discontinued Fecal Occult Blood Test Discontinued Sigmoidoscopy Discontinued documented as of this encounter Medical Devices Not on filedocumented as of this encounter Visit Diagnoses Diagnosis Iron deficiency anemia due to chronic blood loss Iron deficiency anemia secondary to blood loss (chronic) documented in this encounter Advance Directives Documents on File Type Date Recorded Patient Cotton Cleaner Expl anation Power of Continuous Pickling Line Pickler 12/16/2018 10:33 AM Nate r of Continuous Pickling Line Pickler Latest Code Status on File Code Status [...] the patient have Health Care Power of Continuous Pickling Line Pickler? No Healthcare Agents on File Name Relationship Healthcare Agent [facility] Access Hospitalhi p Communication Wesley Hassan Spouse Health Care Agent Care Teams Web Press Jogger Relationship Specialty Start Date End Date Bella Power MD [address] [place] [address] [place] [phone] PCP - General Family Medicine 04/02/19 documented as of this encounter
--- OUTSIDE RECORDS SUMMARY | 2023-03-05 14:42 | External Medical Summary ---
Author Name Unknown Address Unknown Organization K01:[facility] [place] - [address] [place] [address] Laboratory Report Ordering Provider Test Date Status ÓSCAR STEVENSON 02/24/2023 13:13:25 Final Observation Date Value Abnormality Reference (Units ) Status Iron 02/24/2023 13:13:25 70 33-151 (ug /dL) Final Iron-binding capacity 02/24/2023 13:13:25 352 250-425 (ug/dL) Final Transferrin Sat % 02/24/2023 13:13:25 20 15 -55 (%) Final Performing Location [facility] [place] - [address] [place] [address]
--- OUTSIDE RECORDS SUMMARY | 2023-03-05 14:42 | External Medical Summary | Summary of Care ---
Author Name Unknown Organization [facility] Address [address] [facility] [place] [address] Phone [phone] Care Team Providers Care [employer] Planners Name Role Phone Bella Power MD Primary Care Prov ider Encounter Details Date Type Department Care Team (Late st Contact Info) Description 02/24/2023 Orders Only Hematology/Oncology Treatment, [facility] [address] [place] [address] Marcelle Smith, STEFFEN Iron deficiency anemia due to chronic blood loss* Allergies No known active allergiesdocumented as of [...] Strip 11 02/03/2018 Active Nebulizers (NEBULIZER COMPRESSOR) MISCIndications:PROGRAM DIRECTOR AIR TALENT D, group B, by GOLD 2017 classification [...] Indications:COPD, group B, by GOLD 2017 classification ([place] [...] WRAP) 30 g 11 11/09/2022 Active Nystatin 567343 UNIT/GM External Powder (Nystop) Apply topically to [...] mRNA, LNP-s, No Pre serve, 2-Dose Series ([employer] 01/02/2021,06/21/2020,05/24/2020 COVID-19, mRNA, LNP-s, PF, B [...] 02/24/2023 2:00 PM EST Office Visit Hematology/Oncology [facility] 200 [facility] [place] [address] Nita Pino CRNP [address] [facility] [place] [address] Arrived 03/14/2023 1:00 PM EST Office Visit General Surgery, [facility] [address] [facility] [place] [address] Alonso Juarez MD [address] [facility] [place] [address] 05/07/2023 2:20 PM EST Telemedicine Family Medicine [address] [place] [phone] Vianca Kitchen MD [address] [place] [address] [place] [address] Pending Results Name Type Priority Associated Diagnoses [...] blood loss 02/24/2023 1:13 PM EST Scheduled Orders Name Type Priority Associated Diagnoses Orde r Schedule CBC WITH WBC DIFFERENTIAL Lab STAT Iron deficiency anemia due to chronic blood loss Expected: 02/24/2023 (Approximate), Expires: 02/25/2024 COMPREHENSIVE METABOLIC PANEL Lab STAT Iron deficiency anemia due to chronic blood loss Expected: 02/24/2023 (Approximate), Expires: 02/25/2024 FERRITIN Lab STAT Iron deficiency anemia due to chronic blood loss Expected: 02/24/2023 (Approximate), Expires: 02/25/2024 IRON SCREEN, INCLUDING TIBC Lab STAT Iron deficiency anemia due to chronic blood loss Expected: 02/24/2023 (Approximate), Expires: 02/25/2024 Scheduled Procedures Name Priority Associated Diagnoses Date/Ti [...] Iron deficiency anemia due to chronic blood loss- Primary Iron deficiency anemia secondary to blood loss (chronic) documented in this encounter Advance Directives Documents on File Type Date Recorded Patient Speech Language Pathologist Expl anation Power of Product Management Manager 12/16/2018 10:33 AM Nate peralta of Product Management Manager Latest Code Status on File Code [...] the patient have Health Care Power of Product Management Manager? No Healthcare Agents on File Name Relationship Healthcare Agent Relationshi p Communication Wesley Hassan Spouse Health Care Agent Care Teams [employer] Planners Relationship Specialty Start Date End Date Bella Power MD [address] [place] [address] [place] [phone] PCP - General Family Medicine 04/02/19 documented as of this encounter
--- OUTSIDE RECORDS SUMMARY | 2023-03-05 14:42 | External Medical Summary ---
Author Name Unknown Address Unknown Organization K01:[facility] [place] [address] [facility] [address] Laboratory Report Ordering Provider Test Date Status ÓSCAR STEVENSON 02/24/2023 13:13:25 Final Observation Date Value Abnormality Reference (Units ) Status Ferritin 02/24/2023 13:13:25 179 Above high normal 13 -150 (ng/mL) Final Postmenopausal women have hi gher ferritin levels than pre-menopausal women. The above reference interval is based on pre-menopausal women. Performing Location [facility] - [address] [facility] [address]
--- OUTSIDE RECORDS SUMMARY | 2023-03-05 14:42 | External Medical Summary | Summary of Care ---
Author Name Unknown Organization [facility] Address [address] [facility] [place] [address] Phone [phone] Care Team Providers Care Singe Winder Name Role Phone Bella Power MD Primary Care Prov ider Reason for Visit * Reason Comments NEW PATIENT Internal and externa l hemorrhoids * Evaluate & Treat - Unlimited Visits (Within 30 days (routine)) - Pending Review Specialty Diagnoses / Procedures Referred By Gray santiago Referred To Contact Colon and Rectal Surgery / General Surgery Diagnoses Internal hemorrhoids Hemorrhoids, external without complications Ai Hunt CRNP [address] [place] [address] Referral ID Status Reason Start Date Expiration Date Visits Requested Visits Authorized [id number] Pending Review Specialty Services Required 02/14/[phone] Encounter Details Date Type Department Care Team (Late st Contact Info) Description 02/21/2023 10:45 AM EST Office Visit General Surgery, [facility] [address] [place] [address] Alonso Juarez MD [address] [place] [address] Bleeding hemorrhoids* Allergies No known active allergiesdocumented as of this encounter (statuses as of 02/21/2023) Medications Medication Sig Dispensed Refills Start Date End Date Status ONETOUCH DELICA LANCETS 33G MISC Up to 4 times daily 100 Each 6 5 Active Glucose Blood (ONETOUCH ULTRA BLUE) STRP Use as directed 4 times a day as needed (Diabetes). Use up to four times a day as directed 100 Strip 11 8 Active Nebulizers (NEBULIZER COMPRESSOR) MISCIndications:TIRE TRUCKER D, group B, by GOLD 2017 classification ([facility]) Inhale via nebulizer. Use as directed. 1 [...] allergic reaction). 0.3 mL 0 0 Active Aspirin 81 MG Oral Tablet Delayed ReleaseIndications: ASCVD (arteriosclerotic cardiovascular disease) Take 2 Tablets by mouth in the morning. 30 Tab 5 0 Active Coloplast PasteIndications:He morrhoids, external without complications Use to hemorrhoids 1-2 times per day 57 g 3 0 Active Meclizine HCl 12.5 MG Oral Tablet (ANTIVERT) Take 1 Tablet by mouth 3 times a day as needed. 0 Active Breo Ellipta 200-25 MCG/INH Inhalation Aerosol Powder Breath Activated (fluticasone furoate-vilanterol) Indications:COPD, group B, by GOLD 2017 classification ([facility]) Inhale by mouth 1 Puff in the morning. 60 Each 0 2 Active Auryxia 1 GM 210 MG(Fe) Oral [...] 60 Capsule 5 3 08/06/19 24 Active Sertraline HCl 100 MG Oral Tablet (Zoloft) TAKE ONE TABLET BY MOUTH IN THE MORNING 30 Tablet 5 3 08/21/19 24 Active Levothyroxine Sodium 125 MCG Oral Tablet (Levoxyl) TAKE 1 TABLET BY MOUTH DAILY AT LEAST 30 MINUTES PRIOR TO FIRST MEAL OF THE DAY OR OTHER MEDICATIONS. 90 Tablet 3 3 08/21/19 24 Active Atorvastatin Calcium 80 MG Oral Tablet (Lipitor) TAKE 1 TABLET BY MOUTH DAILY. 90 Tablet 1 3 08/21/19 24 Active Mupirocin 2 % External Ointment (Bactroban) apply one application externally twice daily 22 g 0 3 Active Carbidopa-Levodopa 25-100 MG Oral Tablet (Sinemet) TAKE ONE TABLET BY MOUTH THREE TIMES A DAY WITH MEALS 90 Tablet 5 3 09/14/19 24 Active Lidocaine-Prilocain e 2.5-2.5 % External Cream (Emla) APPLY SMALL AMOUNT TO ACCESS SITE (AVF) 1 TO 2 HOURS BEFORE DIALYSIS. COVER WITH OCCLUSIVE DRESSING (SARAN WRAP) 30 g 11 3 Active Nystatin 186320 UNIT/GM External Powder (Nystop) Apply topically to affected area 2 times a day. 60 g 5 3 Active Pantoprazole Sodium 20 MG Oral Tablet Delayed Release (Protonix) Take 1 Tablet by mouth in the morning and 1 Tablet in the evening. 180 Tablet 1 3 Active Hydrocortisone (Perianal) 2.5 % External Cream (Procto-Med HC)Indications:Hemo rrhoids, external without complications ADMINISTER INTO RECTUM OR APPLY TO EXTERNAL HEMORRHOIDS ONCE DAILY 28 g 2 3 12/31/19 24 Active Isosorbide Mononitrate ER 30 MG Oral Tablet Extended Release 24 Hour (Imdur) TAKE 1 TABLET BY MOUTH DAILY 90 Tablet 3 3 01/14/20 24 Active Erythromycin 5 MG/GM Ophthalmic Ointment apply 1 application into the eye(s) four times daily for 7 days 3.5 g 0 3 Active Pregabalin 100 MG Oral Capsule (Lyrica)Indications :Primary parkinsonism Take 1 capsule by mouth twice daily. May take 1 extra capsule after dialysis. 90 Capsule 1 3 Active Hydrocortisone Acetate 25 MG Rectal Suppository (Anusol HC) Administer 1 Suppository into the rectum at bedtime. 14 Suppository 3 3 Active Hydrocortisone Acetate 25 MG Rectal Suppository (Anusol HC) Administer 1 Suppository into the rectum at bedtime. 14 Suppository 0 3 02/22/20 23 Discontinu ed(Refill) documented as of this encounter (statuses as of 02/21/2023) Active Problems Problem Noted Date Diagnosed Date [...] as of this encounter (statuses as of 02/21/2023) Resolved Problems Problem Noted Date Diagnosed Date [...] as of this encounter (statuses as of 02/21/2023) Immunizations Name Administration Dates Next Due COVID-19 [...] as of this encounter Progress Notes * Alonso Juarez MD - 02/21/2023 11:48 AM EST SUBJECTIVE: Kami Hassan is a 77 year old female. Chief Complaint Patient presents with NEW PATIENT Internal and external hemorrhoids HPI: 77-year-old woman with multiple severe medical problems including heart failure, end-stage renal disease, COPD, presents with bleeding hemorrhoids. She was in the hospital in December and underwent multiple tests. She had a colonoscopy in September which demonstrated diverticulosis as well as moderate internal and external hemorrhoids. The imaging was available for review and I independently reviewed these notes. She had a EGD and a hysteroscopy recently. She is also had a capsule endoscopy. Shecontinues to have bright red blood per rectum with bowel movements. She showed me pictures of the toilet. She denies dizziness. Past Medical History: Diagnosis Date (HFpEF) heart failure with preserved ejection fraction (HCC) Acute on chronic diastolic (congestive) heart failure (HCC) 03/04/2020 [facility] Allergic rhinitis 02/15/2000 acute BMI 38.0-38.9,adult 08/28/2009 Chronic Sinusitis Unspecified Controlled substance agreement signed 11/25/2016 COVID-19 10/23/2021 Cystitis 05/23/2022 admitted [facility] home on cefuroxime Dyslipidemia, goal LDL below 100 Esophagitis determined by biopsy 04/19/2022 LA grade B esophagitis, inflammation gastric antrum, body and duodenum AYSHA (generalized anxiety disorder) Hearing loss, sensorineural 01/2005 History of non-ST elevation myocardial infarction (NSTEMI) 08/24/2018 HTN (hypertension) Meniere's disease Multiple falls 04/20/2019 History of falls on the pl NSTEMI (non-ST elevated myocardial infarction) ([facility]) 09/03/2018 Parkinson disease Rectal bleeding Restless leg syndrome 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 factor ([facility]) 07/18/2016 SDH (subdural hematoma) ([facility]) 04/20/2019 acute Serrated polyp of colon 09/20/2022 7 mm descending colon Sleep apnea Tinnitus 01/2005 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 ([facility]) Past Surgical History: Procedure Laterality Date ARTHROPLASTY KNEE TOTAL Left Dr. Del Real CARPAL TUNNEL SURGERY Bilateral COLONOSCOPY, DIAGNOSTIC (RECTUM) 11/27/2015 normal, repeat 10 yrs/COLONOSCOPY FLEXIBLE PROXIMAL DIAGNOSTIC performed by Garrett Chang MD at ENDOSCOPY [facility] EGD, FLEXIBLE, DIAGNOSTIC 04/19/2022 esophagitis, repeat 8-12 wks / [facility] EGD, FLEXIBLE, DIAGNOSTIC 06/26/2022 normal, retained food / [facility] EXPLORATION OF MAXILLARY SINUS 03/17/1995 Sinus Surgery HYSTEROSCOPY,DIAGNOSTIC 2022 atrophic endometrium, endometrial polyp INJECTION LUMBAR/SACRAL 07/31/2015 INJECTION SPINE LUMBAR OR SACRAL performed by Quincy Prado DO at OR [facility] INJECTION LUMBAR/SACRAL 08/15/2015 INJECTION SPINE LUMBAR OR SACRAL performed by Quincy Prado DO at OR [facility] INSER MARLI CAT,W/O PUMP;5YR/OLD N/A 11/04/2019 INSERT TUNNELED CENTRAL VENOUS CATHETER AGE 5 OR OLDER performed by Ortega Montez DO at OR [facility] LIGATE/CUT OVIDUCT(S) MISCELLANEOUS ORDER ([facility] ONLY) Bilateral Heel surgery MISCELLANEOUS ORDER ([facility] ONLY) Right 3rd toe nerve decompression, Dr. Del Real [place] COLSC FLX W/RMVL OF TUMOR POLYP LESION SNARE TQ 09/20/2022 7 mm serrated polyp descending colon Current Outpatient Medications Medication Sig Dispense Refill [employer] DELICA LANCETS 33G MISC Up to 4 times daily 100 Each 6 Glucose Blood (DailysingleTOUCH ULTRA BLUE) STRP Use as directed 4 [...] DRESSING (SARAN WRAP) 30 g 11 Nystatin 328345 UNIT/GM External Powder (Nystop) Apply topically to [...] No current facility-administered medications for this visit. Review of patient's allergies indicates: No Known Allergies Social History: Social History Tobacco Use Smoking status: Former Packs/day: 0.25 Years: 50.00 Additional pack years: 0.00 Total pack years: 12.50 Types: Cigarettes Quit date: 04/20/1989 Years since quittin.8 Smokeless tobacco: Never Tobacco comments: smoked since 19 years of age. Smokes a pack every 3-4 days. Substance Use Topics Alcohol use: Never Vaping/E-Cigarette Use Vaping/E-Cigarette Use Never User Vaping/E-Cigarette Substances Vaping/E-Cigarette Devices OBJECTIVE: PHYSICAL EXAM: There were no vitals taken for this visit. General: alert, healthy, and no distress Head: Normocephalic, No masses, lesions, tenderness or abnormalities Eye Exam: conjunctiva are pink and non-injected, sclera clear Extremities: no skin discoloration, no clubbing, no cyanosis Skin: skin color, texture, turgor are normal, no rashes or significant lesions ASSESSMENT: K64.9 Bleeding hemorrhoids (primary encounter diagnosis) PLAN: 77-year-old with multiple severe medical problems presents with hemorrhoids. She is an incredibly high-risk for surgery. She is been started on Anusol suppositories. I have added Anusol cream for theexternal tissue. We will see how she does with this for now. We will treat her conservatively. We will have her return in 1 month. She will call with any new or concerning symptoms in the meantime. Alonso Juarez MD 02/21/2023 documented in this encounter Nursing Notes * Luma Lu LPN - 02/21/2023 11:02 AM EST Fire Regulator Documentation Provider requested wild oyster harvester. Name of wild oyster harvester: Luma Lu Went into room with Dr Juarez. Did not do an exam, from Endoscopes and colonoscopy he could see that her bleeding was results of hemorrhoids. He told her to continue to use suppositories and also usecream and come back in three weeks and if exam is needed then he would do it at three check up. * Luma Lu LPN - 02/21/2023 10:38 AM EST Chief Complaint Patient presents with NEW PATIENT Internal and external hemorrhoids Patient was in to see GI and she was sent here for hemorrhoids. Patient was in hospital in December and several endoscopes and was told everything was alright. She was still bleeding, back tarry stuff, they said there still wasn't anything wrong, saw GI and they gave her suppositories and she still has bleed for the past three days. documented in this encounter Plan of Treatment Upcoming Encounters Date Type Department Care Team (Late st Contact Info) Description 02/24/2023 1:00 PM EST Laboratory Laboratory [facility] [address] [place] [phone] [facility] [address] [facility] [place] [address] 02/24/2023 2:00 PM EST Office Visit Hematology/Oncology [facility] [address] [place] [address] Nita Pino [facility]NP [address] [facility] [place] [address] 03/14/2023 1:00 PM EST Office Visit General Surgery, [facility] [address] [facility] [place] [address] Alonso Juarez MD [address] [facility] [place] [address] 05/07/2023 2:20 PM EST Telemedicine Family Medicine [address] [place] [phone] Vianca Kitchen MD [address] [place] [address] [place] [address] Scheduled Procedures Name Priority Associated Diagnoses Date/Ti [...] as of this encounter Visit Diagnoses Diagnosis Bleeding hemorrhoids- Primary Unspecified hemorrhoids with other complication documented in this encounter Advance Directives Documents on File Type Date Recorded Patient 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 No Healthcare Agents on File Name Relationship Healthcare Agent Relationshi p Communication Wesley Hassan Spouse Health Care Agent Care Teams Singe Winder Relationship Specialty Start Date End Date Bella Power MD [address] [place] [address] [place] [phone] PCP - General Family Medicine 04/02/19 documented as of this encounter
--- OUTSIDE RECORDS SUMMARY | 2023-03-05 14:42 | External Medical Summary ---
Author Name Unknown Address Unknown Organization K09:[facility] [address] [place] [address] Laboratory Report Ordering Provider Test Date Status ÓSCAR STEVENSON 02/24/2023 13:13:25 Final Observation Date Value Abnormality Reference (Units ) Status BUN 02/24/2023 13:13:25 37 Above high normal 6-20 (mg/dL) Final Creatinine 02/24/2023 13:13:25 7.1 Above high normal 0.5-1.0 (mg/dL) Final Glomerular filtration rate/1.73 sq M.predicted [Volume Rate/Area] in Serum, Plasma or Blood by Creatinine-based formula (CKD-EPI) 02/24/2023 13:13:25 6 Below low normal >=60 (mL/min) Final eGFR is calculated based on the CKD-EPI 2020 equation SODIUM 02/24/2023 13:13:25 141 135-146 (m mol/L) Final Potassium 02/24/2023 13:13:25 3.8 3.5-5.1 (m mol/L) Final Cl 02/24/2023 13:13:25 100 98-107 (mm ol/L) Final CO2 02/24/2023 13:13:25 28 22-32 (mmo l/L) Final Anion gap 02/24/2023 13:13:25 13 7-15 (mmol /L) Final Glucose 02/24/2023 13:13:25 113 70-120 (mg /dL) Final Albumin 02/24/2023 13:13:25 4.1 3.8-5.0 (g /dL) Final AST (Aspartate aminotransferase) 02/24/2023 13:13:25 21 10-35 (U/L) Fin al Alk Phos 02/24/2023 13:13:25 118 35-130 (U/ L) Final Bilirubin, Total 02/24/2023 13:13:25 0.3 <=1 .2 (mg/dL) Final Calcium 02/24/2023 13:13:25 9.4 8.4-10.2 ( mg/dL) Final Protein 02/24/2023 13:13:25 7.3 6.0-8.3 (g /dL) Final ALT (Alanine aminotransferase) 02/24/2023 13:13:25 <5 Below low normal 10-35 (U/L) Final Performing Location [facility] [address] [place] [address]
--- OUTSIDE RECORDS SUMMARY | 2023-03-05 14:42 | External Medical Summary ---
Author Name Unknown Address Unknown Organization : Laboratory Report Ordering Provider Test Date Status ALVAREZ STEVENSON 02/24/2023 13:13:25 Final Observation Date Value Abnormality Reference (Units ) Status Transferrin receptor.soluble [Mass/volume] in Serum or Plasma 02/24/2023 13:13:25 3.40 Above high normal 0.76-1.76 (mg/L) Final Test performed by:
[facility]
[address] [facility]
[place] [address]

[phone]
Parts Picker: Alvarez Pabon M.D.
Test Reported by [facility],
[facility] [place],
[address] [place], [place]
Carlos Seals M.D., Ph.D., Director of Laboratories
, [facility] [id number] Performing Location
--- OUTSIDE RECORDS SUMMARY | 2023-03-05 14:43 | External Medical Summary | Summary of Care ---
Author Name Unknown Organization [facility] Address [address] [facility] [place] [address] Phone [phone] Care Team Providers Care Dynamo Tender Name Role Phone Bella Power MD Primary Care Prov ider Reason for Visit * Reason Onset Date Comments Appointment 02/17/2023 Colorectal Surg Encounter Details Date Type Department Care Team (Late st Contact Info) Description 02/17/2023 Telephone Gastroenterology, [facility] [address] [facility] [place] [address] Ai Hunt CRNP [address] [facility] [place] [address] Appointment (Colorectal Surg) Allergies No known active allergiesdocumented as of this encounter (statuses as of 02/17/2023) Medications Medication Sig Dispensed Refills Start Date End Date Status ONETOUCH DELICA LANCETS 33G MISC Up to 4 times daily 100 Each 6 11/24/2014 Active Glucose Blood (ONETOUCH ULTRA BLUE) STRP Use as directed 4 times a day as needed (Diabetes). Use up to four times a day as directed 100 Strip 11 02/03/2018 Active Nebulizers (NEBULIZER COMPRESSOR) MISCIndications:LEGGER PRESS OPERATOR D, group B, by GOLD 2017 [...] WRAP) 30 g 11 11/09/2022 Active Nystatin 442927 UNIT/GM External Powder (Nystop) Apply topically to [...] the rectum at bedtime. 14 Suppository 0 02/14/2023 Active documented as of this encounter (statuses as of 02/17/2023) Active Problems Problem Noted Date Diagnosed Date [...] as of this encounter (statuses as of 02/17/2023) Resolved Problems Problem Noted Date Diagnosed Date [...] as of this encounter (statuses as of 02/17/2023) Immunizations Name Administration Dates Next Due COVID-19 mRNA, LNP-s, No Pre serve, 2-Dose Series ([employer]) 01/02/2021,06/21/2020,05/24/2020 COVID-19, mRNA, LNP-s, PF, B ooster, [...] Miscellaneous Notes * Telephone Encounter - Cielo Gomez OSA - 02/17/2023 11:06 AM EST Appt scheduled, pt/ aware. * Telephone Encounter - Cielo Gomez OSA - 02/17/2023 11:01 AM EST I left message on patient's VM to call me (RE: Scheduling appt with colorectal surgery) documented in this encounter Plan of Treatment Upcoming Encounters Date Type Department Care Team (Late st Contact Info) Description 02/21/2023 1:00 PM EST Office Visit General Surgery, [facility] [address] [place] [address] Alonso Juarez MD [address] [place] [address] 02/24/2023 1:00 PM EST Laboratory Laboratory [facility] [address] [place] [phone] [facility] [address] [facility] [place] [address] 02/24/2023 2:00 PM EST Office Visit Hematology/Oncology [facility] [address] [place] [address] Nita Pino CRNP [address] [facility] [place] [address] 05/07/2023 2:20 PM EST Telemedicine Family Medicine [address] [phone] Vianca Kitchen MD [address] [place] [address] [place] [address] Scheduled Procedures Name Priority Associated Diagnoses Date/Ti [...] Documents on File Type Date Recorded 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 No Healthcare Agents on File Name Relationship Healthcare Agent Relationshi p Communication Wesley Hassan Spouse Health Care Agent Care Teams Dynamo Tender Relationship Specialty Start Date End Date Bella Power MD [address] [place] [address] [place] [phone] PCP - General Family Medicine 04/02/19 documented as of this encounter
--- OUTSIDE RECORDS SUMMARY | 2023-03-05 14:43 | External Medical Summary | Summary of Care ---
Author Name Unknown Organization [facility] Address [address] [facility] [place] [address] Phone [phone] Care Team Providers Care Ships Equipment Engineer Name Role Phone Bella Power MD Primary Care Prov ider Reason for Visit * Reason Onset Date Comments Appointment 02/04/2023 Encounter Details Date Type Department Care Team (Late st Contact Info) Description 02/04/2023 Telephone Family Medicine [address] [place] [phone] Vianca Kitchen MD [address] [place] [address] [place] [address] Appointment Allergies No known active allergiesdocumented as of this encounter (statuses as of 02/05/2023) Medications Medication Sig Dispensed Refills Start Date [...] 1 Each 1 11/27/2018 Active DIURETIC TITRATION PLANIndications:English Division Chair sandro heart failure with preserved ejection fraction [...] B, by GOLD 2017 classification ([facility]) Inhale by mouth 1 Puff in the [...] WRAP) 30 g 11 11/09/2022 Active Nystatin 018199 UNIT/GM External Powder (Nystop) Apply topically to [...] 7 days 3.5 g 0 01/27/2023 Active documented as of this encounter (statuses as of 02/05/2023) Active Problems Problem Noted Date Diagnosed Date [...] as of this encounter (statuses as of 02/05/2023) Resolved Problems Problem Noted Date Diagnosed Date [...] as of this encounter (statuses as of 02/05/2023) Immunizations Name Administration Dates Next Due COVID-19 mRNA, LNP-s, No Pre serve, 2-Dose Series ([employer]) 01/02/2021,06/21/2020,05/24/2020 COVID-19, mRNA, LNP-s, PF, B ooster, [...] encounter Miscellaneous Notes * Telephone Encounter - Janette Orosco OSA - 02/05/2023 8:49 AM EST Patient's spouse calling back and pt is scheduled 02/14/23 @ 1:30 librado/ Ai in [facility]. * Telephone Encounter - Jose Hawley OSA - 02/04/2023 3:05 PM EST LMOM for pt to call back to schedule * Telephone Encounter - Ai Hunt CRNP - 02/04/2023 1:37 PM EST Pt's brought pictures to show on his phone to [facility] today. Pictures were forwarded for me to review (pt doesn't have [employer] account) which showed blood in commode water and? Clots vs stools. doesn't know if pt has vaginal vs rectal bleeding. I called to offer pt a return GI appt for me to perform a rectal exam and also recommend pt to haverepeat CBC. Pt currently at dialysis, ([facility]) asked that we call back after 3P today Schedulers - pls call Wesley to offer GI f/u w me in [facility] on 02/14. She may be booked in between my new pt slots TRINITY Ventura documented in this encounter Plan of Treatment Upcoming Encounters Date Type Department Care Team (Late st Contact Info) Description 02/24/2023 1:00 PM EST Laboratory Laboratory [facility] [address] [place] [phone] [facility] [address] [facility] [place] [address] 02/24/2023 2:00 PM EST Office Visit Hematology/Oncology [facility] [place] [address] [place] [address] Niat Pino CRNP [address] [facility] [place] [address] 05/07/2023 2:20 PM EST Telemedicine Family Medicine [address] [phone] Vianca Kitchen MD [address] [place] [address] [place] [phone] Scheduled Procedures Name Priority Associated Diagnoses Date/Ti [...] COMPLETED IN P AST YEAR FOR COPD 02/01/2024 01/31/2023 Diabetic Eye Exam Discontinued 06/19/2020, , 12/25/2016, [...] Documents on File Type Date Recorded Patient Founder / Ceo Expl anation Power of Java Oracle Developer 12/16/2018 10:33 AM Nate r of Java Oracle Developer Latest Code Status on File Code [...] the patient have Health Care Power of Java Oracle Developer? No Healthcare Agents on File Name Relationship Healthcare Agent Relationshi p Communication Wesley Hassan Spouse Health Care Agent Care Teams Ships Equipment Engineer Relationship Specialty Start Date End Date Bella Power MD [address] [place] [address] [place] [address] PCP - General Family Medicine 04/02/19 documented as of this encounter
--- OUTSIDE RECORDS SUMMARY | 2023-03-05 14:43 | External Medical Summary | Summary of Care ---
Author Name Unknown Organization [facility] Address [address] [facility] [place] [address] Phone [phone] Care Team Providers Care Cook Fruit Name Role Phone Bella Power MD Primary Care Prov ider Reason for Visit * Reason Onset Date Comments Appointment 02/04/2023 Encounter Details Date Type Department Care Team (Late st Contact Info) Description 02/04/2023 Telephone Family Medicine [address] [place] [address] Vianca Kitchen MD [address] [place] [address] [place] [address] Appointment Allergies No known active [...] 1 Each 1 11/27/2018 Active DIURETIC TITRATION PLANIndications: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 Spouse states he will take pt to get labs prior to appt. * Telephone Encounter - Jose Hawley OSA - 02/04/2023 3:05 PM EST LMOM for pt to call back to schedule * Telephone Encounter - Ai Hunt CRNP - 02/04/2023 1:37 PM EST Pt's brought pictures to show on his phone to [facility] today. Pictures were forwarded for me to review (pt doesn't have Aconexhart account) which showed blood in commode water [...] to offer GI f/u w me in [facility] on 02/14. She may be booked in between my new pt slots TRINITY [place] documented in this encounter Plan of Treatment Upcoming Encounters Date Type Department Care Team (Late st Contact Info) Description 02/24/2023 1:00 PM EST Laboratory Laboratory [facility] [address] [place] [phone] [facility] [address] [facility] [place] [address] 02/24/2023 2:00 PM EST Office Visit Hematology/Oncology [facility] [address] [place] [address] Nita Pino CRNP 400 [facility] [place] [id number] 05/07/2023 2:20 PM EST Telemedicine Family Medicine [address] [phone] Vianca Kitchen MD [address] [place] [address] [place] [address] Scheduled Procedures Name Priority Associated Diagnoses Date/Ti [...] on File Type Date Recorded Patient Sales Promotion Officer Expl anation Power of Brim Plater 12/16/2018 10:33 AM Nate r of Brim Plater Latest Code Status on File Code Status [...] the patient have Health Care Power of Brim Plater? No Healthcare Agents on File Name Relationship Healthcare Agent Relationshi p Communication Wesley Hassan Spouse Health Care Agent Care Teams Cook Fruit Relationship Specialty Start Date End Date Bella Power MD [address] [place] [address] [place] [address] PCP - General Family Medicine 04/02/19 documented as of this encounter
--- OUTSIDE RECORDS SUMMARY | 2023-03-05 14:43 | External Medical Summary | Summary of Care ---
Author Name Unknown Organization [facility] Address [address] [facility] [place] [address] Phone [phone] Care Team Providers Care Production Administrative Assistant Name Role Phone Bella Power MD Primary Care Prov ider Reason for Visit * Reason Onset Date Comments Appointment 02/04/2023 Encounter Details Date Type Department Care Team (Late st Contact Info) Description 02/04/2023 Telephone Family Medicine [address] [place] [address] Vianca Kitchen MD [address] [place] [address] [place] [address] Appointment Allergies No known active [...] 1 Each 1 11/27/2018 Active DIURETIC TITRATION PLANIndications:Applied Statistician sandro heart failure with preserved ejection fraction [...] ndications:COPD, group B, by GOLD 2017 classification ([facility] [...] WRAP) 30 g 11 11/09/2022 Active Nystatin 361171 UNIT/GM External Powder (Nystop) Apply topically to [...] mRNA, LNP-s, No Pre serve, 2-Dose Series ([employer]) 01/02/2021,06/21/2020,05/24/2020 COVID-19, mRNA, LNP-s, PF, B [...] back and pt is scheduled 02/14/23 @ 2:00PM mj Cloud in [facility]. Spouse states he will take pt to get labs prior to appt. * Telephone Encounter - Jose Hawley OSA - 02/04/2023 3:05 PM EST LMOM for pt to call back to schedule * Telephone Encounter - Ai Hunt CRNP - 02/04/2023 1:37 PM EST Pt's brought pictures to show on his phone to [facility] today. Pictures were forwarded for me to review (pt doesn't have Mychart account) which showed blood in commode water [...] to offer GI f/u w me in [facility] on 02/14. She may be booked in between my new pt slots TRINITY Ventura documented in this encounter Plan of Treatment Upcoming Encounters Date Type Department Care Team (Late st Contact Info) Description 02/14/2023 2:00 PM EST Office Visit Gastroenterology [address] [place] [address] Ai Hunt CRNP 132 [facility] [place] [address] 02/24/2023 1:00 PM EST Laboratory Laboratory [facility] [address] [place] [phone] [facility] [address] [facility] [place] [address] 02/24/2023 2:00 PM EST Office Visit Hematology/Oncology [facility] [address] [place] [address] Nita Pino CRNP 400 [place] [address] 05/07/2023 2:20 PM EST Telemedicine Family Medicine [address] [place] [phone] Vianca Kitchen MD [address] [place] [address] [place] [address] Scheduled Procedures Name Priority Associated Diagnoses Date/Ti [...] on File Type Date Recorded Patient Sales Representative Adding Machines Expl anation Power of Automobile Washer Steam 12/16/2018 10:33 AM Nate r of Automobile Washer Steam Latest Code Status on File Code Status [...] the patient have Health Care Power of Automobile Washer Steam? No Healthcare Agents on File Name Relationship Healthcare Agent Relationshi p Communication Wesley Hassan Spouse Health Care Agent Care Teams Production Administrative Assistant Relationship Specialty Start Date End Date Bella Power MD [address] [place] [address] [place] [address] PCP - General Family Medicine 04/02/19 documented as of this encounter
--- OUTSIDE RECORDS SUMMARY | 2023-03-05 14:43 | External Medical Summary | Summary of Care ---
Author Name Unknown Organization [facility] Address [address] [facility] [place] [address] Phone [phone] Care Team Providers Care Marketing Database Consultant Name Role Phone Bella Power MD Primary Care Prov ider Reason for Visit * Reason Onset Date Comments Appointment 02/17/2023 Colorectal Surg Encounter Details Date Type Department Care Team (Late st Contact Info) Description 02/17/2023 Telephone Gastroenterology, [facility] [place] [address] Ai Hunt CRNP 132 [place] [address] Appointment (Colorectal Surg) Allergies No known active [...] Strip 11 02/03/2018 Active Nebulizers (NEBULIZER COMPRESSOR) MISCIndications:FARMWORKER FUR D, group B, by GOLD 2017 classification [...] WRAP) 30 g 11 11/09/2022 Active Nystatin [id number] UNIT/GM External Powder (Nystop) Apply topically to [...] mRNA, LNP-s, No Pre serve, 2-Dose Series ([employer]) 01/02/2021,06/21/2020,05/24/2020 COVID-19, mRNA, LNP-s, PF, B ooster, [...] 1:00 PM EST Office Visit General Surgery, [facility] [address] [place] [address] Alonso Juarez MD [address] [place] [address] 02/24/2023 1:00 PM EST Laboratory Laboratory [facility] [address] [place] [phone] [facility] [address] [facility] [place] [address] 02/24/2023 2:00 PM EST Office Visit Hematology/Oncology [facility] [address] [place] [address] Nita Pino CRNP 400 [facility] [place] [address] 05/07/2023 2:20 PM EST Telemedicine Family Medicine [address] [phone] Vianca Kitchen MD [address] [place] [address] [place] [address] Scheduled Procedures Name Priority Associated Diagnoses Date/Ti [...] Documents on File Type Date Recorded Patient Health And Safety Inspector Expl anation Power of Bellows Tester 12/16/2018 10:33 AM Nate r of Bellows Tester Latest Code Status on File Code Status [...] the patient have Health Care Power of Bellows Tester? No Healthcare Agents on File Name Relationship Healthcare Agent Relationshi p Communication Wesley Hassan Spouse Health Care Agent Care Teams Marketing Database Consultant Relationship Specialty Start Date End Date Bella Power MD [address] [place] [address] [place] [address] PCP - General Family Medicine 04/02/19 documented as of this encounter
--- OUTSIDE RECORDS SUMMARY | 2023-03-05 14:43 | External Medical Summary | Summary of Care ---
Author Name Unknown Organization [facility] Address [address] [facility] [place] [address] Phone [phone] Care Team Providers Care Intermodal Dispatcher Name Role Phone Bella Power MD Primary Care Prov ider Reason for Referral * Evaluate & Treat - Unlimited Visits (Within 30 days (routine)) - Authorized Specialty Diagnoses / Procedures Referred By Gray santiago Referred To Contact Colon and Rectal Surgery / General Surgery Diagnoses Internal hemorrhoids Hemorrhoids, external without complications Ai Hunt CRNP [address] [place] [address] Referral ID Status Reason Start Date Expiration Date Visits Requested Visits Authorized [id number] Authorized Specialty Services Required 02/14/2023 999 999 Question Answer Referral Priority Within 30 days (routine) Where should this appointment be scheduled? [facility] What condition is the patient being seen for? Hemorrhoids/Anal Abcess/Fistulas/Fissures/Skin Tags/Hematochezia Reason for Visit * Reason Comments Follow Up Rectal bleeding Encounter Details Date Type Department Care Team (Late st Contact Info) Description 02/14/2023 2:00 PM EST Office Visit Gastroenterology [address] [place] [address] Ai Hunt CRNP [address] [place] [address] Internal hemorrhoids*; Hemorrhoids, external without complications; Rectal bleeding Allergies No known active allergiesdocumented as of this encounter (statuses as of 02/14/2023) Medications Medication Sig Dispensed Refills Start Date End Date Status ONETOUCH DELICA LANCETS 33G MISC Up to 4 times daily 100 Each 6 11/24/2014 Active Glucose Blood (ONETOUCH ULTRA BLUE) STRP Use as directed 4 times a day as needed (Diabetes). Use up to four times a day as directed 100 Strip 11 02/03/2018 Active Nebulizers (NEBULIZER COMPRESSOR) MISCIndications:LEAD SPRINKLER D, group B, by GOLD 2017 classification ([facility]) Inhale via nebulizer. Use as directed. [...] group B, by GOLD 2017 classification ([facility]) Inhale by mouth 1 Puff in [...] WRAP) 30 g 11 11/09/2022 Active Nystatin [id number] UNIT/GM External Powder (Nystop) Apply topically to [...] as of this encounter (statuses as of 02/14/2023) Active Problems Problem Noted Date Diagnosed Date [...] as of this encounter (statuses as of 02/14/2023) Resolved Problems Problem Noted Date Diagnosed Date [...] as of this encounter (statuses as of 02/14/2023) Immunizations Name Administration Dates Next Due COVID-19 [...] Sign Reading Time Taken Comments Blood Pressure 130/60 02/14/2023 1:59 PM EST Pulse 56 02/14/2023 1:59 PM EST Temperature 36.6 C (97.8 F) 02/14/2023 1:59 PM ES T Respiratory Rate 16 02/14/2023 1:59 PM EST Oxygen Saturation 91% 02/14/2023 1:59 PM EST room air Inhaled Oxygen Concentration - - Weight - [...] as of this encounter Progress Notes * Ai Hunt CRNP - 02/14/2023 2:27 PM EST DATE OF SERVICE: 02/14/23 REFERRING PHYSICIAN: Dario Busby MD CC: F/U rectal bleeding 02/14/23: I asked pt to return to clinic today to perform rectal exam for reports of intermittent rectal bleeding. She is still having rectal bleeding with defecation, brought pictures. 01/31/23: Pt admitted at [facility] earlier this month for rectal vs vaginal bleeding, anemia w Hgb down to 8. Received 1U PRBC transfusion. reports pt have black tarry stools at home. However hasn't seen her stools as pt flushed them away before he can inspect them. EGD performed while pt at [facility] on 01/24 wo abnormal findings. 10/04/22: Admitted at [facility] earlier this month for colonoscopy and hysteroscopy [...] was otherwise normal. - No specimens collected. VCE 10/2022: mild duodenitis, jejunitis Colonoscopy 09/20/2022: - Preparation of the colon [...] Atrophic endometrium with variable cystic change. EGD 01/2023: normal. EGD 2022: - Normal esophagus. - LA [...] Acute on chronic diastolic (congestive) heart failure ([facility]) 03/04/2020 [facility] Allergic rhinitis 02/15/2000 acute BMI 38.0-38.9,adult 08/28/2009 Chronic Sinusitis Unspecified Controlled substance agreement signed 11/25/2016 COVID-19 10/23/2021 Cystitis 05/23/2022 admitted [facility] home on cefuroxime Dyslipidemia, goal LDL below 100 Esophagitis determined by biopsy 04/19/2022 LA grade B esophagitis, inflammation gastric antrum, body and duodenum AYSHA (generalized anxiety disorder) Hearing loss, sensorineural 01/2005 History of non-ST elevation myocardial infarction (NSTEMI) 08/24/2018 HTN (hypertension) Meniere's disease Multiple falls 04/20/2019 History of falls on the pl NSTEMI (non-ST elevated myocardial infarction) ([facility]) 09/03/2018 Parkinson disease Rectal bleeding Restless leg syndrome 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 factor ([facility]) 07/18/2016 SDH (subdural hematoma) ([facility]) 04/20/2019 acute Serrated polyp of colon 09/20/2022 7 mm descending colon Sleep apnea Tinnitus 01/2005 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 ([facility]) Family History Problem Relation Age of [...] performed by Garrett Chang MD at ENDOSCOPY [facility] EGD, FLEXIBLE, DIAGNOSTIC 04/19/2022 esophagitis, repeat 8-12 wks / [facility] EGD, FLEXIBLE, DIAGNOSTIC 06/26/2022 normal, retained food / [facility] EXPLORATION OF MAXILLARY SINUS 03/17/1995 Sinus Surgery HYSTEROSCOPY,DIAGNOSTIC 2022 atrophic endometrium, endometrial polyp INJECTION LUMBAR/SACRAL 07/31/2015 INJECTION SPINE LUMBAR OR SACRAL performed by Quincy Prado DO at OR [facility] INJECTION LUMBAR/SACRAL 08/15/2015 INJECTION SPINE LUMBAR OR SACRAL performed by Quincy Prado DO at OR [facility] INSER MARLI CAT,W/O PUMP;5YR/OLD N/A 11/04/2019 INSERT TUNNELED CENTRAL VENOUS CATHETER AGE 5 OR OLDER performed by Ortega Montez DO at OR [facility] LIGATE/CUT OVIDUCT(S) MISCELLANEOUS ORDER ([facility] ONLY) Bilateral Heel surgery MISCELLANEOUS ORDER ([facility] ONLY) Right 3rd toe nerve decompression, Dr. Del Real [place] COLSC FLX W/RMVL OF TUMOR POLYP LESION [...] Current Outpatient Medications Medication Sig Dispense Refill Hydrocortisone Acetate 25 MG Rectal Suppository (Anusol HC) Administer 1 Suppository into the rectum at bedtime. 14 Suppository 0 ONETOUCH DELICA LANCETS 33G MISC Up [...] DRESSING (SARAN WRAP) 30 g 11 Nystatin [id number] UNIT/GM External Powder (Nystop) Apply topically to [...] negative except as noted in HPI. EXAM: Filed Vitals: 02/14/23 1359 BP: 130/60 Pulse: 56 Resp: 16 Temp: 36.6 C (97.8 F) SpO2: 91% GENERAL: Well developed and well nourished in no acute distress. SKIN: No rashes, ulcers, jaundice HEENT: Normocephalic, sclera clear, NECK: Supple,trachea midline, no JVD. RECTAL: Ext hemorrhoids, Int hemorrhoids w blood noted. Tile Fitter Documentation Provider requested statistical engineer. Name of statistical engineer: Catherine Mendoza RN, Dr. Vianca Kitchen ASSESSMENT AND PLAN: 77 year old female with history of ESRD on HD, PD, HTN, dyslipidemia, AYSHA, T2DM, RENÉ, RA, CHF, sacral ulcer with anemia and symptoms of dark to bright red blood from ? Rectum vs.Vaginal bleeding. Previous endoscopic workup showed esophagitis wo bleeding, and diverticulosis, int/ext hemorrhoids. Hysteroscopy w thickened endometrium w benign path. VCE showed duodenitis/jejunitis. Most recently had repeat EGD while admitted at [facility] wo abnormal findings. 02/14/23: rectal exam performed and noted she has hemorrhoidal bleeding - Anusol 25mg suppository prn hemorrhoidal bleeding - Continue Colace 100mg BID - Refer to Colorectal Surgery for hemorrhoid ligation vs hemorrhoidectomy. - ED for emergencies - Please call with any questions or concerns RETURN TO CLINIC: PRN I spent a total of 30 minutes on the date of service in review of patient's record, and previously obtained information in person and appropriate medical visit, discussion and education of plan, withpatient and/or caregiver, placing orders for tests/referral/procedures as medically necessary and documentation of pertinent clinical information in patient's medical records for their visit today. TRINITY Ventura [facility] Gastroenterology, [facility] documented in this encounter Nursing Notes * Catherine Mendoza RN - 02/14/2023 2:00 PM EST Patient identified by name and date of . Chief Complaint Patient presents with Follow Up Rectal bleeding ' documented in this encounter Plan of Treatment Upcoming Encounters Date Type Department Care Team (Late st Contact Info) Description 02/24/2023 1:00 PM EST Laboratory Laboratory [facility] [address] [facility] [place] [phone] [facility] [address] [facility] [place] [address] 02/24/2023 2:00 PM EST Office Visit Hematology/Oncology [address] [place] [address] Nita Pino CRNP [address] [place] [address] [place] [address] 05/07/2023 2:20 PM EST Telemedicine Family Medicine [address] [place] [phone] Vianca Kitchen MD [address] [place] [address] [place] [address] Scheduled Procedures Name Priority Associated Diagnoses Date/Ti me COLONOSCOPY FLEXIBLE PROXIMA L DIAGNOSTIC Recall Encounter for screening colonoscopy Scheduled Referrals Name Type Priority Associated Diagnoses Orde r Schedule COLORECTAL SURGERY REFERRAL OP Referral Within 30 days (routine) Internal hemorrhoids Hemorrhoids, external without complications Ordered: 02/14/2023 Health Maintenance Due Date Last Done Comments Zoster Vaccines (2 of 3) 12/18/2011 10/23/2011 Depression Screening 01/22/2020 01/21/2019 COVID-19 Vaccine (2022-2 4 season) 2022 01/17/2022, 07/23/2021, 01/02/2021, Additional history exists Influenza Vaccine (FLU shot) (#1) 2022 12/29/2021, 05/31/2021, 11/16/2019, Additional history exists TSH 08/11/2023 08/10/2022, 05/15, 08/21/2020, Additional history exists O2 ASSESSMENT COMPLETED IN P AST YEAR FOR COPD 02/01/2024 02/14/2023 Diabetic Eye Exam Discontinued 06/19/2020, , 12/25/2016, Additional history exists Diabetic Foot Exam Discontinued 08/16/2020, 0 08/26/2019, 08/04/2018, Additional history exists Colonoscopy Discontinued 09/20/2022, 11/15, 11/27/2015, Additional history exists Colorectal Cancer Screening Discontinued Cologuard Discontinued Fecal Occult Blood Test Discontinued Sigmoidoscopy Discontinued documented as of this encounter Medical Devices Not on filedocumented as of this encounter Visit Diagnoses Diagnosis Internal hemorrhoids- Primary Internal hemorrhoids without mention of complication Hemorrhoids, external without complications External hemorrhoids without mention of complication Rectal bleeding Hemorrhage of rectum and anus documented in this encounter Advance Directives Documents on File Type Date Recorded Patient Wig Sales Consultant Expl anation Power of Manager Location 12/16/2018 10:33 AM Nate r of Manager Location Latest Code Status on File Code Status [...] patient have Health Care Power of Manager Location? No Healthcare Agents on File Name Relationship Healthcare Agent Relationshi p Communication Wesley Hassan Spouse Health Care Agent Care Teams Intermodal Dispatcher Relationship Specialty Start Date End Date Bella Power MD [address] [place] [address] [place] [address] PCP - General Family Medicine 04/02/19 documented as of this encounter
--- OUTSIDE RECORDS SUMMARY | 2023-03-05 14:43 | External Medical Summary | Summary of Care ---
Author Name Unknown Organization [facility] Address [address] [facility] [place] [address] Phone [phone] Care Team Providers Care Etymology Teacher Name Role Phone Bella Power MD Primary Care Prov ider Reason for Visit * Reason Onset Date Comments Appointment 02/04/2023 Encounter Details Date Type Department Care Team (Late st Contact Info) Description 02/04/2023 Telephone Family Medicine [address] [place] [address] Vianca Kitchen MD [address] [place] [address] [place] [address] Appointment Allergies No known active allergiesdocumented as of this encounter (statuses as of 02/04/2023) Medications Medication Sig Dispensed Refills Start Date [...] 1 Each 1 11/27/2018 Active DIURETIC TITRATION PLANIndications: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 Technician sandro heart failure with preserved ejection [...] WRAP) 30 g 11 11/09/2022 Active Nystatin 640894 UNIT/GM External Powder (Nystop) Apply topically to [...] as of this encounter (statuses as of 02/04/2023) Active Problems Problem Noted Date Diagnosed Date [...] as of this encounter (statuses as of 02/04/2023) Resolved Problems Problem Noted Date Diagnosed Date [...] as of this encounter (statuses as of 02/04/2023) Immunizations Name Administration Dates Next Due COVID-19 mRNA, LNP-s, No Pre serve, 2-Dose Series ([email or web address]) 01/02/2021,06/21/2020,05/24/2020 COVID-19, mRNA, LNP-s, PF, B ooster, [...] encounter Miscellaneous Notes * Telephone Encounter - Jose Hawley OSA - 02/04/2023 3:05 PM EST LMOM for pt to call back to schedule * Telephone Encounter - Ai Hunt CRNP - 02/04/2023 1:37 PM EST Pt's brought pictures to show on his phone to [facility] today. Pictures were forwarded for me to review (pt doesn't have [employer] account) which showed blood in commode water [...] to offer GI f/u w me in [facility] on 02/14. She may be booked in between my new pt slots TRINITY Ventura documented in this encounter Plan of Treatment Upcoming Encounters Date Type Department Care Team (Late st Contact Info) Description 02/24/2023 1:00 PM EST Laboratory Laboratory [facility] [address] [place] [phone] [facility] [address] [place] [address] 02/24/2023 2:00 PM EST Office Visit Hematology/Oncology [facility] [place] [address] [place] [address] Nita Pino CRNP [address] [facility] [place] [address] 05/07/2023 2:20 PM EST Telemedicine [address] [place] [phone] Vianca Kitchen MD [address] [place] [address] [place] [address] Scheduled Procedures Name Priority Associated Diagnoses Date/Ti [...] Documents on File Type Date Recorded Patient Position Description Manager Expl anation Power of Watch Crystal Cutter 12/16/2018 10:33 AM Nate peralta of Watch Crystal Cutter Latest Code Status on File Code Status [...] the patient have Health Care Power of Watch Crystal Cutter? No Healthcare Agents on File Name Relationship Healthcare Agent Relationshi p Communication Wesley Hassan Spouse Health Care Agent Care Teams Etymology Teacher Relationship Specialty Start Date End Date Bella Power MD [address] [place] [address] [place] [address] PCP - General Family Medicine 04/02/19 documented as of this encounter
--- OUTSIDE RECORDS SUMMARY | 2023-03-05 14:43 | External Medical Summary | Summary of Care ---
Author Name Unknown Organization [facility] Address [address] [facility] [place] [address] Phone [phone] Care Team Providers Care Snowboard Designer Name Role Phone León Morillo MD Primary Care Prov ider Reason for Visit * Reason Comments Medication Refill Encounter Details Date Type Department Care Team (Late st Contact Info) Description 02/11/2023 Refill Family Medicine [address] [phone] León Morillo MD [address] [place], [place] [address] [address] Primary parkinsonism Allergies No known active allergiesdocumented as of this encounter (statuses as of 02/12/2023) Medications Medication Sig Dispensed Refills Start Date End Date Status ONETOUCH DELICA LANCETS 33G MISC Up to 4 times daily 100 Each 6 11/24/2014 Active Glucose Blood (ONETOUCH ULTRA BLUE) STRP Use as directed 4 times a day as needed (Diabetes). Use up to four times a day as directed 100 Strip 11 02/03/2018 Active Nebulizers (NEBULIZER COMPRESSOR) MISCIndications:TEACHER VOCATIONAL TRAINING D, group B, by GOLD 2017 classification [...] WRAP) 30 g 11 11/09/2022 Active Nystatin 487026 UNIT/GM External Powder (Nystop) Apply topically to [...] after dialysis. 90 Capsule 1 02/12/2023 Active Pregabalin 100 MG Oral Capsule (Lyrica)Indications :Primary parkinsonism Take 1 capsule twice daily. May take 1 extra capsule after dialysis. 90 Capsule 1 11/26/2022 3 Discontinu ed(Refill) documented as of this encounter (statuses as of 02/12/2023) Active Problems Problem Noted Date Diagnosed Date [...] as of this encounter (statuses as of 02/12/2023) Resolved Problems Problem Noted Date Diagnosed Date [...] as of this encounter (statuses as of 02/12/2023) Immunizations Name Administration Dates Next Due COVID-19 mRNA, LNP-s, No Pre serve, 2-Dose Series (Dreamise) 01/02/2021,06/21/2020,05/24/2020 COVID-19, mRNA, LNP-s, PF, B ooster, [...] Miscellaneous Notes * Telephone Encounter - León Morillo MD - 02/12/2023 4:10 PM EST Signed Prescriptions: Disp Refills Pregabalin 100 MG Oral Capsule (Lyrica) 90 Cap*1 Sig: Take 1 capsule twice daily. May take 1 extra capsule after dialysis. Authorizing Provider: LEÓN MORILLO * Telephone Encounter - Migdalia Miles LPN - 02/12/2023 1:57 PM ESTPending Prescriptions: Disp Refills Pregabalin 100 MG Oral Capsule (Lyrica) 90 Cap*1 Sig: Take 1 capsule twice daily. May take 1 extra capsule after dialysis. * Telephone Encounter - Migdalia Miles LPN - 02/12/2023 1:54 PM EST Pending Prescriptions: Disp Refills Pregabalin 100 MG Oral Capsule (Lyrica) 90 Cap*1 Sig: Take 1 capsule twice daily. May take 1 extra capsule after dialysis. Last Visit: 01/31/2023 (in office), Visit date not found (telemedicine) Next Visit: 05/07/2023 Last date the medication was ordered: 11/26/22 Patient Active Problem List Diagnosis Code ADVANCE DIRECTIVE INFORMATION Meniere's disease, cochlear, active H81.09 Hypothyroidism due to acquired atrophy of thyroid E03.4 Steatohepatitis, non-alcoholic K75.81 Type 2 diabetes mellitus with hemoglobin A1c goal of less than 7.0% ([facility]) E11.9 Restless leg syndrome G25.81 Dyslipidemia, goal LDL below 100 E78.5 AYSHA (generalized anxiety disorder) F41.1 RENÉ on CPAP G47.33 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 factor ([facility]) M05.741, M05.742 Primary parkinsonism G20.C History of non-ST elevation myocardial infarction (NSTEMI) I25.2 Venous stasis dermatitis of both lower extremities I87.2 COPD, group B, by GOLD 2017 classification ([facility]) J44.9 Chronic heart failure with preserved ejection fraction ([facility]) I50.32 Mild neurocognitive disorder G31.84 Iron deficiency anemia due to chronic blood loss D50.0 Type 2 diabetes mellitus with diabetic dermatitis, without long-term current use of insulin ([facility]) E11.620 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 ([facility]) I13.2, I50.40, Z99.2, N18.6 Diabetes mellitus with ESRD (end-stage renal disease) ([facility]) E11.22, N18.6 Personal history of fall Z91.81 BMI 38.0-38.9,adult Z68.38 Dependence on renal dialysis ([facility]) Z99.2 History of CVA (cerebrovascular accident) Z86.73 AVF (arteriovenous fistula) ([facility]) 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, F02.80 Palliative care encounter Z51.5 Acquired hypothyroidism E03.9 Serrated polyp of colon K63.5 Labs: Lab Results Component Value Date/Time CREATININE - [facility] 3.3 (H) 08/10/2022 01:48 PM CREATININE - [facility] 5.2 (H) 10/27/2019 10:00 AM CREATININE ISTAT 1.7 (H) 01/11/2019 12:09 PM CREATININE, RANDOM URINE - [facility] 82 01/21/2019 04:34 PM CREATININE-OUTSIDE LAB 3.59 (A) 06/12/2021 12:00 AM Lab Results Component Value Date/Time POTASSIUM 4.3 06/24/1996 04:55 PM POTASSIUM - [facility] 3.8 08/10/2022 01:48 PM POTASSIUM - [facility] 3.9 10/27/2019 10:00 AM POTASSIUM POCT - [facility] 4.9 04/25/2019 07:11 AM POTASSIUM-OUTSIDE LAB 3.9 06/12/2021 12:00 AM Lab Results Component Value Date/Time TSH - [facility] 1.56 08/10/2022 01:48 PM TSH - [facility] 2.61 02/25/2019 03:48 PM TSH - OUTSIDE LAB 0.617 01/30/2020 12:00 AM Lab Results Component Value Date/Time LDL CHOLESTEROL (CALCULATED) - [facility] 45 10/04/2022 10:43 AM LDL CHOLESTEROL (CALCULATED) - [facility] 44 07/30/2013 11:04 AM LDL CHOLESTEROL (CALCULATED) - [facility] 84 12/22/2012 01:29 PM LDL CHOLESTEROL (DIRECT MEASURE) - [facility] 55 05/31/2021 03:04 PM LDL CHOLESTEROL (DIRECT MEASURE) - [facility] 40 08/21/2020 01:14 PM LDL CHOLESTEROL (DIRECT MEASURE) - [facility] 139 (H) 05/30/2017 04:23 PM LDL CHOLESTEROL (DIRECT MEASURE) - [facility] 108 03/22/2016 10:31 AM Lab Results Component Value Date/Time ALT - [facility] 21 08/10/2022 01:48 PM ALT - [facility] 6 (L) 10/05/2019 11:14 AM Hemoglobin AIC Results: Lab Results Component Value Date/Time HEMOGLOBIN A1C - [facility] 5.3 05/31/2021 03:04 PM HEMOGLOBIN A1C - [facility] 5.2 08/21/2020 01:14 PM HEMOGLOBIN A1C - [facility] 5.1 03/23/2019 04:45 PM HEMOGLOBIN A1C - [facility] 4.9 05/01/2018 02:07 PM HEMOGLOBIN A1C - [facility] 5.3 10/13/2017 01:44 PM documented in this encounter Plan of Treatment Upcoming Encounters Date Type Department Care Team (Late st Contact Info) Description 02/14/2023 2:00 PM EST Office Visit Gastroenterology [address] [place] [address] Ai Hunt CRNP [address] [facility] [place] [address] 02/24/2023 1:00 PM EST Laboratory Laboratory [facility] [place] [address] [place] [phone] [facility] [address] [place] [address] 02/24/2023 2:00 PM EST Office Visit Hematology/Oncology [facility] [address] [place] [address] Nita Pino CRNP [address] [place] [address] 05/07/2023 2:20 PM EST Telemedicine Family Medicine [address] [place] [phone] Vianca Kitchen MD [address] [place] [address] [place] [address] Scheduled Procedures Name Priority Associated Diagnoses Date/Ti [...] this encounter Visit Diagnoses Diagnosis Primary parkinsonism Paralysis agitans documented in this encounter Advance Directives Documents on File Type Date Recorded Patient Herb Counselor Expl anation Power of Reverse Logistics Analyst 12/16/2018 10:33 AM Nate r of Reverse Logistics Analyst Latest Code Status on File Code [...] the patient have Health Care Power of Reverse Logistics Analyst? No Healthcare Agents on File Name Relationship Healthcare Agent Relationshi p Communication Wesley Hassan Spouse Health Care Agent Care Teams Snowboard Designer Relationship Specialty Start Date End Date León Morillo MD [address] [place] [address] [place] [id number] PCP - General Family Medicine 04/02/19 documented as of this encounter
--- OUTSIDE RECORDS SUMMARY | 2023-03-05 14:44 | External Medical Summary | Summary of Care ---
Author Name Unknown Organization [facility] Address [address] [place] [address] Phone [phone] Care Team Providers Care Network Systems Analyst Name Role Phone Bella Power MD Primary Care Prov ider Reason for Visit * Reason Onset Date Comments Scheduling 01/28/2023 Encounter Details Date Type Department Care Team (Late st Contact Info) Description 01/28/2023 Telephone [facility] [place] [address] [place] [phone] Services, Scheduling [address] [place] [address] Scheduling (///) Allergies No known active allergiesdocumented as of this encounter (statuses as of 01/28/2023) Medications Medication Sig Dispensed Refills Start Date [...] classification ([facility]) Inhale via nebulizer. Use as directed. 1 Each 11/27/2018 Active DIURETIC TITRATION PLANIndications:Cardiovascular Disease Specialist sandro heart failure with preserved ejection [...] WRAP) 30 g 11 11/09/2022 Active Nystatin 445579 UNIT/GM External Powder (Nystop) Apply topically to [...] as of this encounter (statuses as of 01/28/2023) Active Problems Problem Noted Date Diagnosed Date [...] as of this encounter (statuses as of 01/28/2023) Resolved Problems Problem Noted Date Diagnosed Date [...] as of this encounter (statuses as of 01/28/2023) Immunizations Name Administration Dates Next Due COVID-19 [...] Telephone Encounter - Rea Cervantes RN - 01/28/2023 12:27 PM EST Wesley, patient's returned [facility] call. Chart reviewed and it was a ARLIN visit. Sallie Batista RN still had the 4pm opening for today. He was in agreement. ARLIN visit for todaY AT 4 PM Scheduled with Sallie Batista RN. TT to Sallie Cervantes. RN [facility] litigation assistant [phone] * Telephone Encounter - Maddie Kearney OSA - 01/28/2023 12:17 PM EST Request to schedule a ARLIN and found today at 4pm but called and got ans machine that is full and then tried her spouse and went to for his as well so scheduled a call to try tomorrow documented in this encounter Plan of Treatment Upcoming Encounters Date Type Department Care Team (Late st Contact Info) Description 01/28/2023 4:00 PM EST Home Visit [facility], [address] [place] [address] Sallie Lynne, RN [address] [place] [address] 01/29/2023 2:30 PM EST Scheduled Telephone [facility], [facility] [address] [place] [address] [facility] [place] [address] 01/31/2023 10:00 AM EST Office Visit Gastroenterology [address] [place] [address] Ai Hunt CRNP [address] [facility] [place] [address] 01/31/2023 11:20 AM EST Office Visit Family Medicine [address] [place] [phone] Vianca Kitchen MD [address] [place] [address] [place] [address] 02/24/2023 1:00 PM EST Laboratory Laboratory [facility] [place] [address] [place] [phone] [place], Lab [address] [place] [address] 02/24/2023 2:00 PM EST Office Visit Hematology/Oncology [facility] [place] [address] [place] [address] Nita Pino CRNP [address] [place] [phone] Scheduled Procedures Name Priority Associated Diagnoses Date/Ti [...] on File Type Date Recorded Patient Elementary Art Teacher Expl anation Power of Pneumatic Press Hand 12/16/2018 10:33 AM Nate r of Pneumatic Press Hand Latest Code Status on File Code Status [...] the patient have Health Care Power of Pneumatic Press Hand? No Healthcare Agents on File Name Relationship Healthcare Agent Relationshi p Communication Wesley Hassan Spouse Health Care Agent Care Teams Network Systems Analyst Relationship Specialty Start Date End Date Bella Power MD [address] [place] [address] [place] [phone] PCP - General Family Medicine 04/02/19 documented as of this encounter
--- OUTSIDE RECORDS SUMMARY | 2023-03-05 14:44 | External Medical Summary | Summary of Care ---
Author Name Unknown Organization [facility] Address [address] [facility] [place] [address] Phone [phone] Care Team Providers Care Train Operations Supervisor Name Role Phone Bella Power MD Primary Care Prov ider Reason for Visit * Reason Comments Hospital Follow-Up Encounter Details Date Type Department Care Team (Late st Contact Info) Description 01/31/2023 11:20 AM EST Office Visit Family Medicine [address] [place] [phone] Vianca Kitchen MD [address] [place] [address] [place] [address] Rectal bleeding*; Anemia, unspecified type Allergies No known active allergiesdocumented as of this encounter (statuses as of 01/31/2023) Medications Medication Sig Dispensed Refills Start Date [...] directed. 1 Each 11/27/2018 Active DIURETIC TITRATION PLANIndications:Hand Plate Stacker sandro heart failure with preserved ejection fraction [...] WRAP) 30 g 11 11/09/2022 Active Nystatin 869970 UNIT/GM External Powder (Nystop) Apply topically to [...] as of this encounter (statuses as of 01/31/2023) Active Problems Problem Noted Date Diagnosed Date [...] as of this encounter (statuses as of 01/31/2023) Resolved Problems Problem Noted Date Diagnosed Date [...] as of this encounter (statuses as of 01/31/2023) Immunizations Name Administration Dates Next Due COVID-19 mRNA, LNP-s, No Pre serve, 2-Dose Series (Technorides) 01/02/2021,06/21/2020,05/24/2020 COVID-19, mRNA, LNP-s, PF, B ooster, [...] Sign Reading Time Taken Comments Blood Pressure 110/58 01/31/2023 10:31 AM EST Pulse 120 01/31/2023 10:31 AM EST Temperature 36.4 C (97.6 F) 01/31/2023 1 0:31 AM EST Respiratory Rate - - Oxygen Saturation 99% 01/31/2023 10: 31 AM EST Inhaled Oxygen Concentration - - Weight 110.2 kg (242 lb 14.4 oz) 2022 10:31 AM EST Height - - Body Mass Index 44.43 11/11/2022 3:18 PM EDT documented in this [...] as of this encounter Progress Notes * Vianca Kitchen MD - 01/31/2023 10:32 AM EST Subjective: HPI: Kami Hassan is a 77 year old female with hx of DMII, ESRD on HD (, and Fri), RENÉ on CPAP,hypothyroidism, COPD, parkinsonism, meniere's disease, DDD, RA, hx of CVA, HLD, Anemia seen for Pt was admitted to the hospital from 01/21-01/27 1.Anemia with rectal bleeding: -received 1 unit of PRBC -EGD: normal -discharge hgb 8.7 Today: Pt is here with her who answers most of the question - pt denied any abd pain, N/V or fever - per he stopped her iron 2 days ago to see whether the stool is dark due to iron or GI bleed - pt is sched to get HD tomorrow - overall doing well - not interested in getting lab done Patient Active Problem List Diagnosis Code ADVANCE [...] [facility]) M05.741, M05.742 Primary parkinsonism G20.C History [...] with Parkinson's disease ([facility]) G20.A1, F02.80 Palliative care encounter Z51.5 Acquired hypothyroidism E03.9 Serrated polyp of colon K63.5 Current Outpatient [...] DRESSING (SARAN WRAP) 30 g 11 Nystatin 980976 UNIT/GM External Powder (Nystop) Apply topically to affected area 2 times a day. 60g 5 Pantoprazole Sodium 20 MG Oral Tablet Delayed Release (Protonix) Take 1 Tablet by mouth in the morning and 1 Tablet in the evening. 180 Tablet 1 Pregabalin 100 MG Oral Capsule (Lyrica) Take 1 capsule twice daily. May take 1 extra capsule after dialysis. 90 Capsule 1 Hydrocortisone (Perianal) 2.5 % External Cream (Procto-Med HC) ADMINISTER INTO RECTUM OR APPLY TO EXTERNAL HEMORRHOIDS ONCE DAILY 28 g 2 Isosorbide Mononitrate ER 30 MG Oral Tablet Extended Release 24 Hour (Imdur) TAKE 1 TABLET BY MOUTHDAILY 90 Tablet 3 Erythromycin 5 MG/GM Ophthalmic Ointment apply 1 application into the eye(s) four times daily for 7days 3.5 g 0 No current facility-administered medications for this visit. Past Medical History: Diagnosis Date (HFpEF) heart failure with preserved ejection fraction (HCC) Acute on chronic diastolic (congestive) heart failure (HCC) 03/04/2020 [facility] Allergic rhinitis 02/15/2000 acute BMI 38.0-38.9,adult 08/28/2009 Chronic Sinusitis Unspecified Controlled substance agreement signed 11/25/2016 COVID-19 10/23/2021 Cystitis 05/23/2022 admitted [facility] home on cefuroxime Dyslipidemia, goal LDL below 100 Esophagitis determined by biopsy 04/19/2022 LA grade B esophagitis, inflammation gastric antrum, body and duodenum AYSHA (generalized anxiety disorder) Hearing loss, sensorineural 01/2005 History of non-ST elevation myocardial infarction (NSTEMI) 08/24/2018 HTN (hypertension) Meniere's disease Multiple falls 04/20/2019 History of falls on the pl NSTEMI (non-ST elevated myocardial infarction) ([facility]) 09/03/2018 Parkinson disease Rectal bleeding Restless leg syndrome 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 factor ([facility]) 07/18/2016 SDH (subdural hematoma) ([facility]) 04/20/2019 acute Serrated polyp of colon 09/20/2022 7 mm descending colon Sleep apnea Tinnitus 01/2005 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 ([facility]) Past Surgical History: Procedure Laterality Date ARTHROPLASTY KNEE TOTAL Left Dr. Del Real CARPAL TUNNEL SURGERY Bilateral COLONOSCOPY, DIAGNOSTIC (RECTUM) 11/27/2015 normal, repeat 10 yrs/COLONOSCOPY FLEXIBLE PROXIMAL DIAGNOSTIC performed by Garrett Chang MD at ENDOSCOPY [facility] EGD, FLEXIBLE, DIAGNOSTIC 04/19/2022 esophagitis, repeat 8-12 wks / [facility] EGD, FLEXIBLE, DIAGNOSTIC 06/26/2022 normal, retained food / [facility] EXPLORATION OF MAXILLARY SINUS 03/17/1995 Sinus Surgery HYSTEROSCOPY,DIAGNOSTIC 2022 atrophic endometrium, endometrial polyp INJECTION LUMBAR/SACRAL 07/31/2015 INJECTION SPINE LUMBAR OR SACRAL performed by Quincy Prado DO at OR [facility] INJECTION LUMBAR/SACRAL 08/15/2015 INJECTION SPINE LUMBAR OR SACRAL performed by Quincy Prado DO at OR [facility] INSER MARLI CAT,W/O PUMP;5YR/OLD N/A 11/04/2019 INSERT TUNNELED CENTRAL VENOUS CATHETER AGE 5 OR OLDER performed by Ortega Montez DO at OR [facility] LIGATE/CUT OVIDUCT(S) MISCELLANEOUS ORDER ([facility] ONLY) Bilateral Heel surgery MISCELLANEOUS ORDER ([facility] ONLY) Right 3rd toe nerve decompression, Dr. Nasima STERLING COLSC FLX W/RMVL OF TUMOR POLYP LESION SNARE TQ 09/20/2022 7 mm serrated polyp descending colon Review of patient's allergies indicates: No Known Allergies Family History Problem Relation Age of Onset Heart Disorder Father also had AAA, age 85 Diabetes Father Hypertension Father Musculo-skeletal Disorder Mother has myasthenia gravis, now age 75 Hypertension Mother Neurological Disorder Brother myotonic dystrophy Neurological Disorder Sister wheelchair bound, indwelling Kirby Neurological Disorder Sister myotonic dystrophy Diabetes Brother Diabetes Sister Diabetes Sister Heart Disorder Sister Social History Tobacco Use Smoking status: Former Packs/day: 0.25 Years: 50.00 Additional pack years: 0.00 Total pack years: 12.50 Types: Cigarettes Quit date: 04/20/1989 Years since quittin.8 Smokeless tobacco: Never Tobacco comments: smoked since 19 years of age. Smokes a pack every 3-4 days. Substance Use Topics Alcohol use: Never Vaping/E-Cigarette Use Vaping/E-Cigarette Use Never User Vaping/E-Cigarette Substances Vaping/E-Cigarette Devices ROS: -Per HPI OBJECTIVE: BP 110/58 | Pulse 120 | Temp 36.4 C (97.6 F) | Wt 110.2 kg (242 lb 14.4 oz) | SpO2 99% | BMI 44.43 kg/m | BSA 2.2 m PHYSICAL EXAM: Vitals are reviewed General:. NAD Cardiac:. Normal S1, S2, no murmur Lungs:. CTA, no wheezing or crackles Abd:. soft, ND, NT ASSESSMENT/PLAN: Explained to the that I would not recommend stopping the iron supplement but he did not agree Will obtain CBC but pt does not want to get the lab done today Overall pt is doing well - BP wnl Rectal bleeding (Primary) - CBC WITH WBC DIFFERENTIAL Anemia, unspecified type - CBC WITH WBC DIFFERENTIAL Follow Up: Return in about 3 months (around 05/03/2023). I spent a total of 40-54 minutes (exact time 46 mins) on the date of service in preparation, delivery, and documentation of the care provided to Kami Hassan excluding any time spent in the performance of separately billed services. Vianca Kitchen MD Family medicine[address] [address] documented in this encounter Nursing Notes * Migdalia Maloney CMA - 01/31/2023 10:28 AM EST She is here today for a hospital follow up from [facility]. She was discharged on 01/27/2023. documented in this encounter Plan of Treatment Upcoming Encounters Date Type Department Care Team (Late st Contact Info) Description 02/24/2023 1:00 PM EST Laboratory Laboratory [facility] [place] [address] [place] [phone] [facility] [address] [facility] [place] [address] 02/24/2023 2:00 PM EST Office Visit Hematology/Oncology [facility] [place] [address] [place] [address] Nita Pino CRNP [address] [place] [address] 05/07/2023 2:20 PM EST Telemedicine Family Medicine [address] [phone] Vianca Kitchen MD [address] [place] [address] [place] [address] Scheduled Orders Name Type Priority Associated Diagnoses Orde r Schedule CBC WITH WBC DIFFERENTIAL Lab Routine Rectal bleeding Anemia, unspecified type Ordered: 01/31/2023 Scheduled Procedures Name Priority Associated Diagnoses Date/Ti [...] IN P AST YEAR FOR COPD 11/21/2023 01/31/2023 Diabetic Eye Exam Discontinued 06/19/2020, , [...] bleeding- Primary Hemorrhage of rectum and anus Anemia, unspecified type documented in this encounter Advance Directives Documents on File Type Date Recorded Patient Lye Bath Operator Expl anation Power of Electric Blanket Packer 12/16/2018 10:33 AM Nate peralta of Electric Blanket Packer Latest Code Status on File Code [...] patient have Health Care Power of Electric Blanket Packer? No Healthcare Agents on File Name Relationship Healthcare Agent [facility] Care[facility] p Communication Wesley Hassan Spouse Health Care Agent Care Teams Train Operations Supervisor Relationship Specialty Start Date End Date Bella Power MD [address] [place] [address] [place] [phone] PCP - General Family Medicine 04/02/19 documented as of this encounter
--- OUTSIDE RECORDS SUMMARY | 2023-03-05 14:44 | External Medical Summary | Summary of Care ---
Author Name Unknown Organization [facility] Address [address] [place] [address] Phone [phone] Care Team Providers Care Outreach Associate Name Role Phone Bella Power MD Primary Care Prov ider Reason for Visit * Reason Onset Date Comments Scheduling 01/28/2023 Encounter Details Date Type Department Care Team (Late st Contact Info) Description 01/28/2023 Telephone [facility], [place] [address] [place] [address] Services, Scheduling [address] [place] [address] Scheduling (///) Allergies No known active allergiesdocumented [...] directed. 1 Each 11/27/2018 Active DIURETIC TITRATION PLANIndications:Flight Mechanic sandro heart failure with preserved ejection [...] WRAP) 30 g 11 11/09/2022 Active Nystatin 801656 UNIT/GM External Powder (Nystop) Apply topically to [...] Encounter - Rea Cervantes RN - 01/28/2023 1:21 PM EST Call to patient and spoke with Wesley to let him know we needed to reschedule home visit for today. It is now a telemedicine with Emma Real and Alistair Tapia CHA. Around 3 pm. He is in agreement. Rea Cervantes. [facility] supervisor channel process [phone] * Telephone Encounter - Rea Cervantes RN - 01/28/2023 12:27 PM EST Wesley, patient's returned [facility] call. Chart reviewed and it was a ARLIN visit. Sallie Batista RN still had the 4pm opening for today. He was in agreement. ARLIN visit for todaY AT 4 PM Scheduled with Sallie Batista RN. TT to Sallie Cervantes. RN [facility] supervisor channel process [phone] * Telephone Encounter - Maddie Kearney OSA [...] Care Team (Late st Contact Info) Description 01/29/2023 3:00 PM EST Telemedicine ising at [place], [facility] [place] [address] Caleb Real PA-C [address] [place] [address] Neelam Tapia, Community [facility] Certified Ophthalmic Technician [address] [place] [address] 01/31/2023 10:00 AM EST Office Visit Gastroenterology [address] [place] [address] Ai Hunt CRNP [address] [facility] [place] [address] 01/31/2023 11:20 AM EST Office Visit Family Medicine [address] [place] [address] Vianca Kitchen MD [address] [place] [address] [place] [address] 02/24/2023 1:00 PM EST Laboratory Laboratory [facility] Ty Haines [address] [place] [phone] Cherry Haines [address] [place] [address] 02/24/2023 2:00 PM EST Office [facility] [place] [address] [place] [address] Nita Pino CRNP [address] [place] [address] Scheduled Procedures Name Priority Associated Diagnoses Date/Ti [...] Documents on File Type Date Recorded Patient Core Baker Expl anation Power of Email Engineer 12/16/2018 10:33 AM Nate r of Email Engineer Latest Code Status on File Code [...] the patient have Health Care Power of Email Engineer? No Healthcare Agents on File Name Relationship Healthcare Agent [facility] p Communication Wesley Hassan Spouse Health Care Agent Care Teams Outreach Associate Relationship Specialty Start Date End Date Bella Power MD [address] [place] [address] [place] [phone] PCP - General Family Medicine 04/02/19 documented as of this encounter
--- OUTSIDE RECORDS SUMMARY | 2023-03-05 14:44 | External Medical Summary | Summary of Care ---
Author Name Unknown Organization [facility] Address [address] [place] [address] Phone [phone] Care Team Providers Care Marine Photographer Name Role Phone Bella Power MD Primary Care Prov ider Reason for Visit * Reason Onset Date Comments Scheduling 01/28/2023 Encounter Details Date Type Department Care Team (Late st Contact Info) Description 01/28/2023 Telephone [facility] [place] [address] [place] [address] Services, Scheduling [address] [place] [address] Scheduling (///) Allergies No known active allergiesdocumented [...] , group B, by GOLD 2017 classification ([facility]) Inhale via nebulizer. Use as directed. 1 Each 11/27/2018 Active DIURETIC TITRATION PLANIndications:Electrical Cad Technician sandro heart failure with preserved ejection [...] B, by GOLD 2017 classification ([facility]) Inhale by mouth 1 Puff in [...] WRAP) 30 g 11 11/09/2022 Active Nystatin 521105 UNIT/GM External Powder (Nystop) Apply topically to [...] 01/28/2023 12:27 PM EST Wesley, patient's returned [facility] call. Chart reviewed and it was a ARLIN visit. Sallie Batista RN still had the 4pm opening for today. He was in agreement. ARLIN visit for todaY AT 4 PM Scheduled with Sallie Batista RN. TT to Sallie Cervantes. RN [facility] day treatment clinician/art therapist [phone] * Telephone Encounter - Maddie Kearney OSA [...] Description 01/28/2023 4:00 PM EST Home Visit [facility], [address] [place] [address] Sallie Lynne RN [address] [place] [address] 01/31/2023 10:00 AM EST Office Visit Gastroenterology [address] [place] [address] Ai Hunt CRNP [address] [place] [address] 01/31/2023 11:20 AM EST Office Visit Family Medicine [address] [place] [phone] Vianca Kitchen MD [address] [place] [address] [place] [address] 02/24/2023 1:00 PM EST Laboratory Laboratory [facility] [address] [place] [phone] [facility] Lab [facility] [address] [place] [address] 02/24/2023 2:00 PM EST Office Visit Hematology/Oncology [facility] [address] [place] [address] Nita Pino CRNP 400 [facility] [place] [address] Scheduled Procedures Name Priority Associated Diagnoses Date/Ti [...] Documents on File Type Date Recorded Patient Anode Machine Operator Expl anation Power of Clinic Office Assistant 12/16/2018 10:33 AM Nate r of Clinic Office Assistant Latest Code Status on File Code [...] the patient have Health Care Power of Clinic Office Assistant? No Healthcare Agents on File Name Relationship Healthcare Agent Relationshi p Communication Wesley Hassan Spouse Health Care Agent Care Teams Marine Photographer Relationship Specialty Start Date End Date Bella Power MD [address] [place] [address] [place] [address] PCP - General Family Medicine 04/02/19 documented as of this encounter
--- OUTSIDE RECORDS SUMMARY | 2023-03-05 14:44 | External Medical Summary | Summary of Care ---
Author Name Unknown Organization [facility] Address [address] [facility] [place] [address] Phone [phone] Care Team Providers Care Psychiatry Teacher Name Role Phone Bella Power MD Primary Care Prov ider Reason for Visit * Reason Onset Date Comments [facility]: Maintenance 01/28/2023 Encounter Details Date Type Department Care Team (Latest Contact Info) Description 01/28/2023 11:00 AM EST Scheduled Telephone [facility], [facility] [address] [facility] [place] [address] [facility] Nurse Triage [address] [facility] [place] [address] Canceled (Patient Cancel-Unplanned Event) Allergies No known active allergiesdocumented as of [...] 1 Each 1 11/27/2018 Active DIURETIC TITRATION PLANIndications: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 sandro heart failure with preserved ejection fraction [...] by GOLD 2017 classification ([facility]) Inhale by mouth 1 Puff in [...] WRAP) 30 g 11 11/09/2022 Active Nystatin [id number] UNIT/GM External Powder (Nystop) Apply topically to [...] mRNA, LNP-s, No Pre serve, 2-Dose Series ([employer]) 01/02/2021,06/21/2020,05/24/2020 COVID-19, mRNA, LNP-s, PF, B ooster, [...] Team (Late st Contact Info) Description 01/31/2023 10:00 AM EST Office Visit Gastroenterology [address] [place] [address] Ai Hunt CRNP [address] [place] [address] 01/31/2023 11:20 AM EST Office Visit Family Medicine [address] [place] [phone] Vianca Kitchen MD [address] [place] [address] [place] [address] 02/24/2023 1:00 PM EST Laboratory Laboratory [facility] State Ty Haines [address] [place] [phone] Cherry Haines [facility] [address] [place] [address] 02/24/2023 2:00 PM EST Office Visit Hematology/Oncology [facility] [place] [address] [place] [address] Nita Pino CRNP [address] [place] [address] Scheduled Procedures Name Priority Associated Diagnoses Date/Ti [...] Documents on File Type Date Recorded Patient Lining Caser Expl anation Power of Eyeglass Assembler 12/16/2018 10:33 AM Nate r of Eyeglass Assembler Latest Code Status on File Code [...] the patient have Health Care Power of Eyeglass Assembler? No Healthcare Agents on File Name Relationship Healthcare Agent Relationsut p Communication Wesley Lee Leighaurora Spouse Health Care Agent Care Teams Psychiatry Teacher Relationship Specialty Start Date End Date Bella Power MD [address] [place] [address] [place] [address] PCP - General Family Medicine 04/02/19 documented as of this encounter
--- OUTSIDE RECORDS SUMMARY | 2023-03-05 14:44 | External Medical Summary | Summary of Care ---
Author Name Unknown Organization [facility] Address [address] [place] [address] Phone [phone] Care Team Providers Care Switchgear Repairer Name Role Phone Bella Power MD Primary Care Prov ider Encounter Details Date Type Department Care Team (Late st Contact Info) Description 01/29/2023 3:00 PM EST Telemedicine [facility], [facility] 132 [facility] [place] [address] Caleb Real PA-C [address] [place] [address] Neelam Tapia, Community [facility] Grinding And Spraying Supervisor [address] [place], [place] [phone] Palliative care encounter* Allergies No known active allergiesdocumented as of [...] classification ([facility]) Inhale via nebulizer. Use as directed. 1 Each 1 11/27/2018 Active DIURETIC TITRATION PLANIndications:Prop Making Supervisor sandro heart failure with preserved ejection [...] WRAP) 30 g 11 11/09/2022 Active Nystatin [id number] UNIT/GM External Powder (Nystop) Apply topically to [...] mRNA, LNP-s, No Pre serve, 2-Dose Series ([place] [employer]) 01/02/2021,06/21/2020,05/24/2020 COVID-19, mRNA, LNP-s, PF, B ooster, [...] Progress Notes * Caleb Real PA-C - 01/31/2023 11:58 AM EST ISAAC arrived at home for telemed visit. No answer at the door. Called phone multiple times with no answer, unable to leave voice message. documented in this encounter Plan of Treatment Upcoming Encounters Date Type Department Care Team (Late st Contact Info) Description 02/24/2023 1:00 PM EST Laboratory [facility] [place] [address] [place] [phone] Cherry Haines [facility] [address] [facility] [place] [address] 02/24/2023 2:00 PM EST Office Visit Hematology/Oncology [place] [address] [place] [address] Nita Pino CRNP [address] [place] [address] 05/07/2023 2:20 PM EST Telemedicine Family Medicine [address] [phone] Vianca Kitchen MD [address] [place] [address] [place] [address] Scheduled Procedures Name Priority Associated Diagnoses Date/Ti [...] as of this encounter Visit Diagnoses Diagnosis Palliative care encounter- Primary Encounter for palliative care documented in this encounter Advance Directives Documents on File Type Date Recorded Patient Record Changer Expl anation Power of Guest House Manager 12/16/2018 10:33 AM Nate r of Guest House Manager Latest Code Status on File Code [...] the patient have Health Care Power of Guest House Manager? No Healthcare Agents on File Name Relationship Healthcare Agent Relationshi p Communication Wesley Hassan Spouse Health Care Agent Care Teams Switchgear Repairer Relationship Specialty Start Date End Date Belal Power MD [address] [place] [address] [place] [address] PCP - General Family Medicine 04/02/19 documented as of this encounter
--- OUTSIDE RECORDS SUMMARY | 2023-03-05 14:44 | External Medical Summary | Summary of Care ---
Author Name Unknown Organization [facility] Address [address] [facility] [place] [address] Phone [phone] Care Team Providers Care Automobile Rental Clerk Name Role Phone Bella Power MD Primary Care Prov ider Reason for Visit * Reason Comments Follow Up Recheck "hospital fo llow up, rectal bleeding" Encounter Details Date Type Department Care Team (Late st Contact Info) Description 01/31/2023 10:00 AM EST Office Visit Gastroenterology [address] [place] [address] Ai Hunt CRNP [address] [place] [address] Rectal bleeding*; Anemia, unspecified type Allergies No [...] directed. 1 Each 11/27/2018 Active DIURETIC TITRATION PLANIndications:Clam Shovel Operator sandro heart failure with preserved ejection [...] WRAP) 30 g 11 11/09/2022 Active Nystatin [id number] UNIT/GM External Powder (Nystop) Apply topically to [...] mRNA, LNP-s, No Pre serve, 2-Dose Series ([employer]) 01/02/2021,06/21/2020,05/24/2020 COVID-19, mRNA, LNP-s, PF, B [...] Time Taken Comments Blood Pressure 110/58 01/31/2023 9:57 AM EST Pulse 62 01/31/2023 9:57 AM EST Temperature 36.4 C (97.6 F) 01/31/2023 9:57 AM ES T Respiratory Rate 18 01/31/2023 9:57 AM EST Oxygen Saturation 91% 01/31/2023 9:57 AM EST Inhaled Oxygen Concentration - - Weight - [...] Progress Notes * Ai Hunt CRNP - 01/31/2023 9:46 AM EST DATE OF SERVICE: 01/31/23 REFERRING PHYSICIAN: Dario Busby MD CC: F/U rectal bleeding 01/31/23: Pt admitted at [facility] earlier this month for rectal vs vaginal bleeding, anemia w Hgb down to 8. Received 1U PRBC transfusion. reports pt have black tarry stools at home. However hasn't seen her stools as pt flushed them away before he can inspect them. EGD performed while pt at [facility] on 01/24 wo abnormal findings. 10/04/22: Admitted at [facility] earlier this month for colonoscopy and [...] chronic diastolic (congestive) heart failure (HCC) 03/04/2020 [facility] Allergic rhinitis 02/15/2000 acute BMI 38.0-38.9,adult 08/28/2009 Chronic Sinusitis Unspecified Controlled substance agreement signed 11/25/2016 COVID-19 10/23/2021 Cystitis 05/23/2022 admitted [facility] home on cefuroxime Dyslipidemia, goal LDL below 100 Esophagitis determined by biopsy 04/19/2022 LA grade B esophagitis, inflammation gastric antrum, body and duodenum AYSHA (generalized anxiety disorder) Hearing loss, sensorineural 01/2005 History of non-ST elevation myocardial infarction (NSTEMI) 08/24/2018 HTN (hypertension) Meniere's disease Multiple falls 04/20/2019 History of falls on the pl NSTEMI (non-ST elevated myocardial infarction) ([facility]) 09/03/2018 Parkinson disease Rectal bleeding Restless leg syndrome 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 factor ([facility]) 07/18/2016 SDH (subdural hematoma) ([facility]) 04/20/2019 acute Serrated polyp of colon 09/20/2022 7 mm descending colon Sleep apnea Tinnitus 01/2005 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 ([facility]) Family History Problem Relation Age of Onset [...] performed by Garrett Chang MD at ENDOSCOPY [facility] EGD, FLEXIBLE, DIAGNOSTIC 04/19/2022 esophagitis, repeat 8-12 wks / [facility] EGD, FLEXIBLE, DIAGNOSTIC 06/26/2022 normal, retained food / [facility] EXPLORATION OF MAXILLARY SINUS 03/17/1995 Sinus Surgery HYSTEROSCOPY,DIAGNOSTIC 2022 atrophic endometrium, endometrial polyp INJECTION LUMBAR/SACRAL 07/31/2015 INJECTION SPINE LUMBAR OR SACRAL performed by Quincy Prado, DO at OR [facility] INJECTION LUMBAR/SACRAL 08/15/2015 INJECTION SPINE LUMBAR OR SACRAL performed by Quincy Prado, DO at OR [facility] INSER MARLI CAT,W/O PUMP;5YR/OLD N/A 11/04/2019 INSERT TUNNELED CENTRAL VENOUS CATHETER AGE 5 OR OLDER performed by Ortega Montez DO at OR [facility] LIGATE/CUT OVIDUCT(S) MISCELLANEOUS ORDER ([facility] ONLY) Bilateral Heel surgery MISCELLANEOUS ORDER ([facility] ONLY) Right 3rd toe nerve decompression, Dr. Del Real [place] [facility] FLX W/RMVL OF TUMOR POLYP LESION [...] DRESSING (SARAN WRAP) 30 g 11 Nystatin [id number] UNIT/GM External Powder (Nystop) Apply topically to [...] as noted in HPI. EXAM: Filed Vitals: 01/31/23 0957 BP: 110/58 Pulse: 62 Resp: 18 Temp: 36.4 C (97.6 F) TempSrc: Infrared SpO2: 91% GENERAL: Well developed and well [...] recently had repeat EGD while admitted at [facility] wo abnormal findings. - F/U with Hematology for anemia management. is going to hold oral iron supplements x 2 weeks to see if resolution of black tarry stools will happen. I asked have recommended him to inspect pt's stools to confirm stool color/consistency. - Pantoprazole 20 mg twice daily - Advised to use Stool softeners and [...] records for their visit today. [facility], [facility] documented in this encounter Nursing Notes * Gigi Macias LPN - 01/31/2023 9:54 AM EST Chief Complaint Patient presents with Follow Up Recheck "hospital follow up, rectal bleeding" documented in this encounter Plan of Treatment Upcoming Encounters Date Type Department Care Team (Late st Contact Info) Description 01/31/2023 11:20 AM EST Office Visit Family Medicine [address] [phone] Vianca Kitchen MD [address] [place] [address] [place] [address] Rectal bleeding*; Anemia, unspecified type 02/24/2023 1:00 PM EST Laboratory Laboratory [facility] [address] [place] [phone] [facility] [address] [place] [address] 02/24/2023 2:00 PM EST Office Visit Hematology/Oncology [facility] [place] [address] [place] [address] Nita Pino CRNP 400 [facility] [place] [address] 05/07/2023 2:20 PM EST Telemedicine Family Medicine [address] [place] [address] Vianca Kitchen MD [address] [place] [address] [place] [address] Scheduled Procedures Name Priority Associated Diagnoses Date/Ti [...] of rectum and anus Anemia, unspecified type Rectal bleeding- Primary Hemorrhage of rectum and anus Anemia, unspecified type documented in this encounter Advance Directives Documents on File Type Date Recorded Patient Liquified Natural Gas Technician Expl anation Power of Blender Helper 12/16/2018 10:33 AM Nate r of Blender Helper Latest Code Status on File Code [...] the patient have Health Care Power of Blender Helper? No Healthcare Agents on File Name Relationship Healthcare Agent Relationshi p Communication Wesley Hassan Spouse Health Care Agent Care Teams Automobile Rental Clerk Relationship Specialty Start Date End Date Bella Power MD [address] [place] [address] [place] [address] PCP - General Family Medicine 04/02/19 documented as of this encounter
--- OUTSIDE RECORDS SUMMARY | 2023-03-05 14:44 | External Medical Summary | Summary of Care ---
Author Name Unknown Organization [facility] Address [address] [facility] [place] [address] Phone [phone] Care Team Providers Care Vp Customer Development Name Role Phone Bella Power MD Primary Care Prov ider Encounter Details Date Type Department Care Team (Late st Contact Info) Description 01/29/2023 Population Health External Data Unspecified Department Allergies No known active allergiesdocumented as of this encounter (statuses as of 01/29/2023) Medications Medication Sig Dispensed Refills Start Date [...] 1 Each 1 11/27/2018 Active DIURETIC TITRATION PLANIndications:Core Drill Operator Helper sandro heart failure with preserved [...] ndications:COPD, group B, by GOLD 2017 classification ([facility]) Inhale by mouth 1 Puff [...] WRAP) 30 g 11 11/09/2022 Active Nystatin 675389 UNIT/GM External Powder (Nystop) Apply topically to [...] as of this encounter (statuses as of 01/29/2023) Active Problems Problem Noted Date Diagnosed Date [...] as of this encounter (statuses as of 01/29/2023) Resolved Problems Problem Noted Date Diagnosed Date [...] as of this encounter (statuses as of 01/29/2023) Immunizations Name Administration Dates Next Due COVID-19 mRNA, LNP-s, No Pre serve, 2-Dose Series ([employer]) 01/02/2021,06/21/2020,05/24/2020 COVID-19, mRNA, LNP-s, PF, B ooster, [...] Info) Description 01/29/2023 3:00 PM EST Telemedicine [facility] [address] [place] [address] Caleb Real PA-C [address] [place] [address] Neelam Tapia, Community Health Risk Consulting Treasury Director [address] [place] [address] 01/31/2023 10:00 AM EST Office Visit Gastroenterology [address] [place] [address] Ai Hunt CRNP [address] [place] [address] 01/31/2023 11:20 AM EST Office Visit Family Medicine [address] [place] [address] Vianca Kitchen MD [address] [place] [address] [place] [address] 02/24/2023 1:00 PM EST Laboratory Laboratory [place] [address] [place] [phone] Cherry Haines [facility] [address] [place] [place] [address] [address] 02/24/2023 2:00 PM EST Office Visit Hematology/Oncology [place] [address] [place] [address] Nita Pino CRNP [address] [place] [address] Scheduled Procedures Name Priority [...] Documents on File Type Date Recorded Patient Aircraft Tool Maker Expl anation Power of Delivery Rep 12/16/2018 10:33 AM Nate r of Delivery Rep Latest Code Status on File Code Status [...] the patient have Health Care Power of Delivery Rep? No Healthcare Agents on File Name Relationship Healthcare Agent Relationshi p Communication Wesley Lee Sonya Spouse Health Care Agent Care Teams Vp Customer Development Relationship Specialty Start Date End Date Bella Power MD [address] [place] [address] [place] [address] PCP - General Family Medicine 04/02/19 documented as of this encounter
--- OUTSIDE RECORDS SUMMARY | 2023-03-05 14:45 | External Medical Summary | Summary of Care ---
Author Name Unknown Organization [facility] Address [address] [facility] [place] [address] Phone [phone] Care Team Providers Care Gasket Maker Name Role Phone Bella Power MD Primary Care Prov ider Encounter Details Date Type Department Care Team (Late st Contact Info) Description 01/24/2023 Orders Only Gastroenterology, [facility] [address] [place] [id number] Luis Fernando Davila MD [address] [place] [address] Allergies No known active allergiesdocumented as of this encounter (statuses as of 01/27/2023) Medications Medication Sig Dispensed Refills Start Date [...] 1 Each 1 11/27/2018 Active DIURETIC TITRATION PLANIndications:Fur Examiner sandro heart failure with preserved ejection fraction [...] ndications:COPD, group B, by GOLD 2017 classification ([facility]) Inhale by mouth 1 Puff in [...] WRAP) 30 g 11 11/09/2022 Active Nystatin 315010 UNIT/GM External Powder (Nystop) Apply topically to [...] DAILY 90 Tablet 3 01/14/2023 4 Active documented as of this encounter (statuses as of 01/27/2023) Active Problems Problem Noted Date Diagnosed Date [...] as of this encounter (statuses as of 01/27/2023) Resolved Problems Problem Noted Date Diagnosed Date [...] as of this encounter (statuses as of 01/27/2023) Immunizations Name Administration Dates Next Due COVID-19 [...] Description 01/28/2023 11:00 AM EST Scheduled Telephone [facility], [facility] [address] [place] [address] [facility] Nurse Triage [address] [place] [address] 01/31/2023 10:00 AM EST Office Visit Gastroenterology [address] [place] [address] Ai Hunt CRNP [address] [place] [address] 01/31/2023 11:20 AM EST Office Visit Family Medicine [address] [place] [phone] Vianca Kitchen MD [address] [place] [address] [place] [id number] 02/24/2023 1:00 PM EST Laboratory Laboratory [facility] [address] [place] [id number] Cherry [place]aines [address] [place] [address] 02/24/2023 2:00 PM EST Office Visit Hematology/Oncology [facility] [address] [place] [address] Nita Pino CRNP [address] [place] [id number] Scheduled Procedures Name Priority Associated Diagnoses Date/Ti [...] Procedure Name Priority Date/Time Associated Diagnosis Comments UPPER GI ENDOSCOPY 01/24/2023 documented in this encounter Results * UPPER GI ENDOSCOPY (01/24/2023) 01/24/2023 Luis Fernando Davila MD GASTRO UPPER documented in this encounter Advance Directives Documents on File Type Date Recorded Patient Lab Scientist Expl anation Power of Registered Associate 12/16/2018 10:33 AM Nate r of Registered Associate Latest Code Status on File Code [...] patient have Health Care Power of Registered Associate? No Healthcare Agents on File Name Relationship Healthcare Agent Relationshi p Communication Wesley E Sonya Spouse Health Care Agent Care Teams Gasket Maker Relationship Specialty Start Date End Date Bella Power MD [address] [place] [address] [place] [id number] PCP - General Family Medicine 04/02/19 documented as of this encounter
[2023-03-05 20:00] LABS: Base Excess ABG 4.2 mEq/L (-9-1.8); HCO3 ABG 29 mmol/L (19-24); Oxygen Saturation ABG 98.1 % (90-95); PCO2 ABG 44 mmHg (35-46); PO2 ABG 91 mmHg (80-95); pH ABG 7.43 (7.35-7.45)
[2023-03-05 20:05] LABS: Allen Test Pos (Pos)
[2023-03-05 20:21] LABS: BUN Creatinine Ratio 4.7 (10-20); Creatinine Clr Calc Pharmacy 8.9 ml/min; Est GFR (African American) 6.8 ml/min; Est GFR (Non-African American) 5.9 ml/min; Potassium 3.4 mmol/L (3.5-5.1)
[2023-03-05 20:25] LABS: Troponin I High Sensitivity 209.3 pg/ml (0-14)
[2023-03-05] MEDS: SERTRALINE HCL 100 MG TABLET PO SCH (20:31)
[2023-03-05] MEDS: PANTOprazole 40 MG TAB PO SCH (20:31)
[2023-03-05] MEDS: ATORVASTATIN 40 MG TAB PO SCH (20:31)
[2023-03-05] MEDS: CARBIDOPA/LEVODOPA 25/100MG TAB PO SCH (20:31)
[2023-03-05] MEDS: ISOSORBIDE MONO EXTENDED REL 30 MG TABCR PO SCH (20:31)
[2023-03-05] MEDS: VITAMIN B COMPLEX TAB PO SCH (20:32)
[2023-03-05] MEDS ORDERED: PREGABALIN 100 MG CAP PO SCH (21:00)
[2023-03-05] MEDS ORDERED: PANTOprazole 40 MG TAB PO SCH (21:00)
[2023-03-05] MEDS: HEPARIN SOD 5,000 UNIT/0.5 ML VIAL SQ SCH (21:34)
[2023-03-06] MEDS: LEVOTHYROXINE SODIUM 125 MCG TABLET PO SCH (05:48)
[2023-03-06] MEDS: HEPARIN SOD 5,000 UNIT/0.5 ML VIAL SQ SCH ×3 (05:49→20:30)
[2023-03-06 05:55] LABS: A calco-baum cmplx NotReported Not Detected (NotDetected); Bact fragilis Not Reported Not Detected (NotDetected); Blood Culture Id Panel See PCR Comment (NotDetected); C auris Not Reported Not Detected (NotDetected); Calbicans Not Reported Not Detected (NotDetected); Candida glabrata Not Reported Not Detected (NotDetected); Candida krusei Not Reported Not Detected (NotDetected); Cneoformans/gatti Not Reported Not Detected (NotDetected); Cparapsilosis Not Reported Not Detected (NotDetected); E cloacae compx Not Reported Not Detected (NotDetected); Efaecalis Not Reported Not Detected (NotDetected); Efaecium Not Reported Not Detected (NotDetected); Enterobacterales Not Reported Not Detected (NotDetected); Escherichia coli Not Reported Not Detected (NotDetected); H influenzae Not Reported Not Detected (NotDetected); K aerogenes Not Reported Not Detected (NotDetected); Koxytoca Not Reported Not Detected (NotDetected); Kpneumoniae grp Not Reported Not Detected (NotDetected); Lmonocyt Not Reported Not Detected (NotDetected); N meningitidis Not Reported Not Detected (NotDetected); P aeruginosa Not Reported Not Detected (NotDetected); Proteus spp Not Reported Not Detected (NotDetected); Salmonella spp Not Reported Not Detected (NotDetected); Smarcescens Not Reported Not Detected (NotDetected); Staph lugdunensis Not Reported Not Detected (NotDetected); Staph spp. Not Reported DETECTED (NotDetected); Staphaureus Not Reported Not Detected (NotDetected); Staphepi Not Reported DETECTED (NotDetected); Staphylococcus spp. DETECTED (NotDetected); Stenmaltophilia Not Reported Not Detected (NotDetected); Strep agal(GrpB) Not Reported Not Detected (NotDetected); Strep pneum Not Reported Not Detected (NotDetected); Strep pyog (GrpA) Not Reported Not Detected (NotDetected); Strep spp Not Reported Not Detected (NotDetected); mecAC Resistant Gene DETECTED (NotDetected)
[2023-03-06 06:11] LABS: Staphylococcus epidermidis DETECTED (NotDetected)
[2023-03-06 06:29] LABS: Basophils # (auto) 0.08 K/uL (0.00-0.20); Basophils % (auto) 0.9 %; Eosinophils # (auto) 0.23 K/uL (0.00-0.50); Eosinophils % (auto) 2.6 %; Hematocrit (blood only) 30.7 % (37.0-47.0); Hemoglobin 9.4 g/dl (12.0-16.0); Immature Granulocytes # (auto) 0.06 K/uL (0.01-0.20); Immature Granulocytes % (auto) 0.7 %; Lymphocytes # (auto) 0.88 K/uL (1.20-3.40); Lymphocytes % (auto) 9.9 %; Mean Corpuscular Hemoglobin 29.7 pg (25.0-34.0); Mean Corpuscular Hgb Conc 30.6 g/dL (32.0-36.0); Mean Corpuscular Volume 97.2 fL (80.0-100.0); Mean Platelet Volume 10.9 fL (9.4-12.4); Monocytes # (auto) 0.87 K/uL (0.11-0.59); Monocytes % (auto) 9.8 %; Neutrophils # (auto) 6.73 K/uL (1.40-6.50); Neutrophils % (auto) 76.1 %; Platelet Count 272 K/uL (130-400); RDW Coefficient of Variation 18.6 % (11.5-14.5); RDW Standard Deviation 66.1 fL (36.4-46.3); Red Blood Count 3.16 M/uL (4.20-5.40); White Blood Count 8.85 K/ul (4.8-10.8)
[2023-03-06 07:18] LABS: Albumin Globulin Ratio 1.2 (0.9-2); Albumin Level 3.7 gm/dl (3.4-5.0); BUN Creatinine Ratio 4.9 (10-20); Bilirubin,Total 0.4 mg/dl (0.2-1.0); Calcium 8.9 mg/dl (8.6-10.3); Creatinine Clr Calc Pharmacy 7.9 ml/min; Est GFR (African American) 5.8 ml/min; Globulin 3.2 gm/dl (2.5-4.0); Magnesium 2.1 mg/dl (1.7-2.4); Potassium 3.8 mmol/L (3.5-5.1); Total Protein 6.9 gm/dl (6.0-8.3)
[2023-03-06] MEDS ORDERED: VANCOMYCIN CONSULT ACTIVE PRN (07:20)
[2023-03-06] MEDS ORDERED: VANCOMYCIN HCL 1,750 MG in SODIUM CHLORIDE 0.9% 500 ML IV ONE (08:00)
[2023-03-06] MEDS: CARBIDOPA/LEVODOPA 25/100MG TAB PO SCH ×4 (08:40→18:42)
[2023-03-06] MEDS: PANTOprazole 40 MG TAB PO SCH ×2 (08:40→20:29)
[2023-03-06] MEDS: ASPIRIN 81 MG ECTAB PO SCH (08:41)
[2023-03-06] MEDS: FLUTICASONE/VILANTEROL 200/25MCG 14 PUFFS/INHALER INH SCH (08:42)
[2023-03-06] MEDS: MUPIROCIN 2% OINT 22 GM TUBE EXT SCH ×2 (09:41→20:29)
[2023-03-06] MEDS ORDERED: SODIUM CHLORIDE 0.9% 1,000 ML IV PRN (10:28)
[2023-03-06] MEDS ORDERED: EPOETIN ALFA 10,000 UNITS/ML VIAL IV ONE (10:28)
--- NOTE | 2023-03-06 10:28 | Nephrology Progress Note ---
Date of Service March 06, 2023 Assessment & Plan Admission and Anticipated Discharge Date Admission Date: March 05, 2023 Subjective Assessment & Plan (1) ESRD (end stage renal disease) on dialysis: ESRD on chronic hemodialysis but patient refused to go to dialysis on Friday and then developed worsening confusion and pulmonary edema causing significant shortness of breath and respiratory failure. Her breathing is better and she is not requiring BiPAP after dialysis with fluid removal yesterday. Her normal dialysis day is TTS so we will do her today again for 3 hours and try to take 2 and half to 3 kg of. AVF is tricky to cannulate and also had Infiltration. She will also need to have low dry weight as an outpatient S--unable to get history patient is very sleepy. However she looks much better breathing flores. No longer on BiPAP and maintaining good oxygen saturation with 2 L oxygen by nasal cannula. She had dialysis yesterday. Physical examination: Patient appears confused and in significant respiratory distress requiring BiPAP. 96% on BiPAP with 40% oxygen Mucous membrane is moist neck is supple jugular venous distention present Chest bilateral diminished breath sounds with basal crackles CVS S1-S2 regular soft systolic murmur heard Abdomen is soft nontender Extremities shows 1+ edema Results & Data Vital Signs (Past 12 Hours) Vital Signs Temp Pulse Pulse Resp BP Pulse Ox O2 Del Method 03/06/23 08:34 36.4 C L 64 17 120/57 L 96 Nasal Cannula 03/06/23 08:33 94 Nasal Cannula 03/06/23 08:33 87 L Room Air 03/06/23 08:12 62 03/06/23 08:02 78 15 95 03/06/23 03:01 36.6 C 55 L 17 103/54 L 97 BiPAP 03/06/23 02:28 61 15 92 03/06/23 02:04 BiPAP 03/05/23 23:00 36.4 C L 58 L 16 115/61 92 BiPAP 03/05/23 23:00 73 15 92 O2 Flow Rate FiO2 03/06/23 08:34 2 03/06/23 08:33 2 03/06/23 08:33 03/06/23 08:12 03/06/23 08:02 35 03/06/23 03:01 03/06/23 02:28 35 03/06/23 02:04 60 03/05/23 23:00 03/05/23 23:00 28
--- NOTE | 2023-03-06 11:00 | Pharmacy Report ---
Pharmacy PK ABX Note - Date of Service March 06, 2023 - Assessment and Plan Assessment 77 year old F receiving Vancomycin for treatment of Bacteremia. Pertinent microbiologic data includes: Blood culture positive for Gram positive cocci and serology indicates MRSE. Urine cultures positive for G negative bacilli. Patient is also on Cefepime. Patient has ESRD on hemodialysis. She received emergent HD yesterday and repeat today since she missed her outpatient HD session recently. Day #1 of Vancomycin therapy. Plan Vancomycin * Loading dose: 1750 mg IV x 1 ordered this AM * Since patient is on hemodialysis, will dose Vancomycin with one-time doses based on random AM levels. Therefore, no maintenance dose ordered. * Random level ordered for: 03/07/23 AM * Will re-dose Vancomycin tomorrow based on level. Pharmacy will continue to follow and will adjust dose as needed. Thank you.
--- NOTE | 2023-03-06 11:38 | Hospitalist Progress Note ---
Date of Service March 06, 2023 Assessment & Plan (1) Respiratory failure: (2) Elevated troponin I level: (3) UTI (urinary tract infection): Plan This is a 77yo F with a PMH DM II, hypothyroidism, COPD, ESRD on hemodialysis, anemia, rheumatoid arthritis, h/o sacral ulcers, history of rectal bleeding 2/2 hemorrhoids presents from home with shortness of breath. Patient has been refusing to go to hemodialysis and missed hemodialysis sessions. Her also noted that she is lethargic than her usual self. Acute hypoxic respiratory failure Acute metabolic encephalopathy ESRD on HD missed HD Acute on Chronic HFpEF in setting of missed HD Patient presents with altered mental status and increasing shortness of breath after missed hemodialysis sessions Chest x-ray personally reviewed; cardiomegaly and pulmonary edema present. Admitting creatinine of 10.7 Mg per DL and BUN of 63 Mg per DL BNP elevated Status post emergent hemodialysis on March 05, 2023 Nephrology plans to do another hemodialysis today. Currently on nasal cannula; provide supplemental oxygen to maintain SpO2 above 92%. PT OT ordered Acute UTI Gram-positive bacteremia Urine culture shows gram-negative bacilli Blood culture 2 out of 4 is positive for Staphylococcus; PCR shows Staph epidermidis Will change IV cefepime to ceftriaxone. Vancomycin ordered till final culture and sensitivity of blood culture is finalized. Repeat blood culture ordered for tomorrow a.m. Anemia of end-stage renal disease Iron deficiency anemia Follows Dr. Gonzalez H&H stable, recent EGD done in January that was unremarkable Continue to monitor. T2DM Diet controlled, last A1c 5.8 in January monitor FBS for now will not implement sliding scale Acute/Chronic HFpEF LBBB Chest x-ray shows pulmonary edema BNP elevated Hemodialysis as per nephrology. Parkinson's disease Chronic, stable continue send Hypothyroidism Chronic, stable continue levothyroxine DVT ppx: SQ Heparin FULL CODE PCP: Yo Dispo: Admitted to PCU with acute hypoxic respiratory failure after missed dialysis sessions. Patient will undergo hemodialysis today. PT OT ordered. May need long-term placement. Time spent evaluating patient, direct bedside care, chart review, placing orders, interpretation of diagnostic studies, discussion with consultants, patient, and family members, as well as other required patient management activities is 50 minutes Please note the above document was generated using voice recognition software. It may contain grammatical, syntax or spelling errors. Any formal questions or concerns about the content, text or information contained within the body of this dictation should be directly addressed to the provider for clarification Admission and Anticipated Discharge Date Admission Date: March 05, 2023 Subjective Patient seen and examined at bedside. BiPAP was taken off; patient saturating around 87 to 88% in room air. She was placed on 2 L of oxygen by nasal cannula. She is answering some of the question and able to follow some commands. Review of Systems Review of Systems: Unobtainable due to mental health condition Physical Exam Physical Exam: Constitutional: Awake, able to answer some questions. Oriented to self and place. Respiratory: Decreased breath sounds at bilateral bases. Cardiovascular: RRR, no murmur, no edema Vessels: no JVD or carotid bruit Chest: normal inspection of chest Abdomen: Soft, nontender. Musculoskeletal: no cyanosis or clubbing, extremities motor strength 5/5 Neurologic: Awake, able to answer few questions. Able to follow some commands Results & Data Results & Data Vital Signs (Past 12 Hours) Vital Signs Temp Pulse Pulse Resp BP Pulse Ox O2 Del Method 03/06/23 08:34 36.4 C L 64 17 120/57 L 96 Nasal Cannula 03/06/23 08:33 94 Nasal Cannula 03/06/23 08:33 87 L Room Air 03/06/23 08:12 62 03/06/23 08:02 78 15 95 03/06/23 03:01 36.6 C 55 L 17 103/54 L 97 BiPAP 03/06/23 02:28 61 15 92 03/06/23 02:04 BiPAP O2 Flow Rate FiO2 03/06/23 08:34 2 03/06/23 08:33 2 03/06/23 08:33 03/06/23 08:12 03/06/23 08:02 35 03/06/23 03:01 03/06/23 02:28 35 03/06/23 02:04 60 Laboratory Results Laboratory Results WBC 8.85 K/ul (4.8-10.8) 03/06/23 05:51 RBC 3.16 M/uL (4.20-5.40) L 03/06/23 05:51 Hgb 9.4 g/dl (12.0-16.0) L 03/06/23 05:51 POC Hgb 10.2 g/dl (12.0-16.0) L 03/05/23 10:30 Hct 30.7 % (37.0-47.0) L 03/06/23 05:51 POC Hct 30 % (37-47) L 03/05/23 10:30 MCV 97.2 fL (80.0-100.0) 03/06/23 05:51 MCH 29.7 pg (25.0-34.0) 03/06/23 05:51 MCHC 30.6 g/dL (32.0-36.0) L 03/06/23 05:51 RDW Std Deviation 66.1 fL (36.4-46.3) H 03/06/23 05:51 RDW Coeff of Bhavin 18.6 % (11.5-14.5) H 03/06/23 05:51 Plt Count 272 K/uL (130-400) 03/06/23 05:51 MPV 10.9 fL (9.4-12.4) 03/06/23 05:51 Immature Gran % (Auto) 0.7 % 03/06/23 05:51 Neut % (Auto) 76.1 % 03/06/23 05:51 Lymph % (Auto) 9.9 % 03/06/23 05:51 Ector % (Auto) 9.8 % 03/06/23 05:51 Eos % (Auto) 2.6 % 03/06/23 05:51 Baso % (Auto) 0.9 % 03/06/23 05:51 Neut # (Auto) 6.73 K/uL (1.40-6.50) H 03/06/23 05:51 Lymph # (Auto) 0.88 K/uL (1.20-3.40) L 03/06/23 05:51 Ector # (Auto) 0.87 K/uL (0.11-0.59) H 03/06/23 05:51 Eos # (Auto) 0.23 K/uL (0.00-0.50) 03/06/23 05:51 Baso # (Auto) 0.08 K/uL (0.00-0.20) 03/06/23 05:51 Immature Gran # (Auto) 0.06 K/uL (0.01-0.20) 03/06/23 05:51 PT 10.8 Seconds (9.0-12.0) 03/05/23 10:28 INR 1.0 (0.9-1.1) 03/05/23 10:28 APTT 29 Seconds (21-31) 03/05/23 10:28 PTT Ratio 1.0 03/05/23 10:28 ABG pH 7.43 (7.35-7.45) 03/05/23 19:43 ABG pCO2 44 mmHg (35-46) 03/05/23 19:43 ABG pO2 91 mmHg (80-95) 03/05/23 19:43 ABG HCO3 29 mmol/L (19-24) H 03/05/23 19:43 ABG O2 Saturation 98.1 % (90-95) H 03/05/23 19:43 ABG Base Excess 4.2 mEq/L (-9-1.8) H 03/05/23 19:43 Richard Test Pos (Pos) 03/05/23 19:43 VBG pH 7.33 (7.36-7.41) L 03/05/23 10:28 VBG pCO2 55 mmHg (38-50) H 03/05/23 10:28 VBG pO2 45 mmHg 03/05/23 10:28 VBG HCO3 29 mmol/L 03/05/23 10:28 VBG O2 Saturation 66.8 % 03/05/23 10:28 VBG Base Excess 1.9 mEq/L 03/05/23 10:28 Oxygen Given 28% 03/05/23 19:43 POC Sodium 138 mmol/L (135-144) 03/05/23 10:30 Sodium 141 mmol/L (136-145) 03/06/23 05:51 POC Potassium 4.2 mmol/L (3.3-5.0) 03/05/23 10:30 Potassium 3.8 mmol/L (3.5-5.1) 03/06/23 05:51 POC Chloride 102 mmol/L (101-112) 03/05/23 10:30 Chloride 100 mmol/L (98-107) 03/06/23 05:51 Carbon Dioxide 28 mmol/L (21-32) 03/06/23 05:51 POC Total CO2 28 mmol/L (24-31) 03/05/23 10:30 Anion Gap 13 (3-11) H 03/06/23 05:51 POC Anion Gap 13.0 mmol/L (16-25) L 03/05/23 10:30 POC BUN 60 mg/dl (7-18) H 03/05/23 10:30 BUN 35 mg/dl (6-23) H 03/06/23 05:51 Creatinine 7.19 mg/dl (0.6-1.2) H* D 03/06/23 05:51 POC Creatinine 12.0 mg/dl (0.6-1.3) H* 03/05/23 10:30 Est Cr Clr Drug Dosing 7.9 ml/min 03/06/23 05:51 Est GFR ( Amer) 5.8 ml/min 03/06/23 05:51 Est GFR (Non-Af Amer) 5.0 ml/min 03/06/23 05:51 BUN/Creatinine Ratio 4.9 (10-20) L 03/06/23 05:51 Glucose 92 mg/dl (70-99(Fasting)) 03/06/23 05:51 POC Glucose 97 mg/dl (70-99) 03/06/23 06:35 POC Glucose (other) 119 mg/dl (70-99) H 03/05/23 10:30 Lactate 1.3 mmol/L (0.4-2.0) 03/05/23 10:28 Calcium 8.9 mg/dl (8.6-10.3) 03/06/23 05:51 POC Ioniz Calcium Oh 1.05 mmol/l (1.12-1.32) L 03/05/23 10:30 Magnesium 2.1 mg/dl (1.7-2.4) 03/06/23 05:51 Total Bilirubin 0.4 mg/dl (0.2-1.0) 03/06/23 05:51 Direct Bilirubin 0.0 mg/dl (0-0.2) 03/05/23 10:28 AST 15 U/L (13-39) 03/06/23 05:51 ALT 6 U/L (7-52) L 03/06/23 05:51 Alkaline Phosphatase 92 U/L (34-104) 03/06/23 05:51 Troponin I High Sens 149.8 pg/ml (0-14) H* D 03/06/23 00:29 B-Natriuretic Peptide 1382 pg/ml (0-100) H 03/05/23 10:29 Total Protein 6.9 gm/dl (6.0-8.3) 03/06/23 05:51 Albumin 3.7 gm/dl (3.4-5.0) 03/06/23 05:51 Globulin 3.2 gm/dl (2.5-4.0) 03/06/23 05:51 Albumin/Globulin Ratio 1.2 (0.9-2) 03/06/23 05:51 Procalcitonin 1.31 ng/ml (0-0.5) H 03/05/23 10:28 Urine Color Brown 03/05/23 10:31 Urine Appearance Turbid (Clear) A 03/05/23 10:31 Urine pH 6.0 (4.5-7.5) 03/05/23 10:31 Ur Specific [place] 1.020 (1.000-1.030) 03/05/23 10:31 Urine Protein 3+ (Negative) H 03/05/23 10:31 Urine Glucose (UA) Negative (Negative) 03/05/23 10:31 Urine Ketones Negative (Negative) 03/05/23 10:31 Urine Blood 3+ (Negative) H 03/05/23 10:31 Urine Nitrite Negative (Negative) 03/05/23 10:31 Urine Bilirubin 1+ (Negative) H 03/05/23 10:31 Urine Urobilinogen Negative (Negative) 03/05/23 10:31 Ur Leukocyte Esterase 3+ (Negative) H 03/05/23 10:31 Urine RBC >30 /hpf (0-4) H 03/05/23 10:31 Urine WBC >30 /hpf (0-5) H 03/05/23 10:31 Ur Epithelial Cells 10-20 /lpf (0-5) H 03/05/23 10:31 Ur Renal Epithelial Cell 0-5 /lpf (0-5) 03/05/23 10:31 Urine Bacteria 2+ (Negative) H 03/05/23 10:31 Hyaline Casts 10-30 /lpf (0-5) H 03/05/23 10:31 Granular Casts 1-5 /lpf (0) H 03/05/23 10:31 Nasal Screen MRSA (PCR) Positive (Negative) A 03/05/23 Unknown Adenovirus (PCR) Not Detected (NotDetected) 03/05/23 Unknown B. pertussis DNA (PCR) Not Detected (NotDetected) 03/05/23 Unknown B.parapertussis DNA PCR Not Detected (NotDetected) 03/05/23 Unknown C. pneumoniae DNA (PCR) Not Detected (NotDetected) 03/05/23 Unknown Coronavirus OC43 (PCR) Not Detected (NotDetected) 03/05/23 Unknown Coronavirus HKU1 (PCR) Not Detected (NotDetected) 03/05/23 Unknown Coronavirus 229E (PCR) Not Detected (NotDetected) 03/05/23 Unknown SARS-CoV-2 (PCR) Not Detected (NotDetected) 03/05/23 Unknown Coronavirus NL63 (PCR) Not Detected (NotDetected) 03/05/23 Unknown Human Metapneumovir PCR Not Detected (NotDetected) 03/05/23 Unknown Influenza Type A (PCR) Not Detected (NotDetected) 03/05/23 Unknown Influenza Type B (PCR) Not Detected (NotDetected) 03/05/23 Unknown M. pneumoniae (PCR) Not Detected (NotDetected) 03/05/23 Unknown Parainfluenza 1 (PCR) Not Detected (NotDetected) 03/05/23 Unknown Parainfluenza 2 (PCR) Not Detected (NotDetected) 03/05/23 Unknown Parainfluenza 3 (PCR) Not Detected (NotDetected) 03/05/23 Unknown Parainfluenza 4 (PCR) Not Detected (NotDetected) 03/05/23 Unknown RSV (PCR) Not Detected (NotDetected) 03/05/23 Unknown Entero/Rhino (PCR) Not Detected (NotDetected) 03/05/23 Unknown Staphylococcus sp PCR DETECTED (NotDetected) A 03/05/23 10:28 mecA/C-Methicil Resis Gene DETECTED (NotDetected) A 03/05/23 10:28 Staph epidermidis (PCR) DETECTED (NotDetected) A 03/05/23 10:28 Bld Cult ID Panel PCR See PCR Comment (NotDetected) 03/05/23 10:28 Blood Type O Positive 03/05/23 10:28 Antibody Screen NEGATIVE 03/05/23 10:28 Impressions Chest X-Ray 03/05/23 10:14 XR chest 1V portable CLINICAL HISTORY: Sepsis TECHNIQUE: Single frontal radiograph of the chest was obtained. Comparison: Comparison is made to chest radiograph 01/21/2023 FINDINGS: No lines and tubes are seen. Cardiomegaly is noted. There is prominence and cephalization of the vasculature with Reyes B lines seen. Multifocal airspace opacities are seen. No evidence of pleural effusion or pneumothorax. IMPRESSION: Cardiomegaly and moderate pulmonary edema. Airspace opacities may represent atelectasis, pneumonia, aspiration, and/or alveolar edema. ACT 112: Negative or not required by law. Electronically signed by: Gato Nix M.D. 03/05/2023 11:02 AM (1) Respiratory failure Chronicity: acute Respiratory failure complication: hypoxia Qualified Code(s): J96.01 - Acute respiratory failure with hypoxia (3) UTI (urinary tract infection) Hematuria presence: with hematuria Urinary tract infection type: acute cystitis Qualified Code(s): N30.01 - Acute cystitis with hematuria
[2023-03-06] MEDS ORDERED: CEFEPIME 1,000 MG in SYRINGE 0 ML IV SCH (12:00)
[2023-03-06] MEDS: FERRIC CITRATE 210 MG PO SCH ×2 (12:10→18:40)
[2023-03-06] MEDS: PREGABALIN 100 MG CAP PO SCH (14:46)
[2023-03-06] MEDS: SERTRALINE HCL 100 MG TABLET PO SCH (20:29)
[2023-03-06] MEDS: ATORVASTATIN 40 MG TAB PO SCH (20:29)
[2023-03-06] MEDS: VITAMIN B COMPLEX TAB PO SCH (20:29)
[2023-03-06] MEDS: ISOSORBIDE MONO EXTENDED REL 30 MG TABCR PO SCH (20:29)
[2023-03-07] MEDS: LEVOTHYROXINE SODIUM 125 MCG TABLET PO SCH (05:27)
[2023-03-07] MEDS: HEPARIN SOD 5,000 UNIT/0.5 ML VIAL SQ SCH ×3 (05:45→21:33)
[2023-03-07 07:54] LABS: Basophils # (auto) 0.12 K/uL (0.00-0.20); Basophils % (auto) 1.1 %; Eosinophils # (auto) 0.34 K/uL (0.00-0.50); Eosinophils % (auto) 3.2 %; Hemoglobin 9.4 g/dl (12.0-16.0); Immature Granulocytes # (auto) 0.14 K/uL (0.01-0.20); Immature Granulocytes % (auto) 1.3 %; Lymphocytes # (auto) 0.83 K/uL (1.20-3.40); Lymphocytes % (auto) 7.8 %; Mean Corpuscular Hemoglobin 29.4 pg (25.0-34.0); Mean Corpuscular Hgb Conc 30.3 g/dL (32.0-36.0); Mean Corpuscular Volume 96.9 fL (80.0-100.0); Monocytes # (auto) 0.95 K/uL (0.11-0.59); Neutrophils # (auto) 8.23 K/uL (1.40-6.50); Neutrophils % (auto) 77.6 %; Nucleated RBC # (auto) 0.02 K/uL (0.00-0.12); Nucleated RBC % (auto) 0.2 %; Platelet Count 295 K/uL (130-400); RDW Standard Deviation 64.3 fL (36.4-46.3); White Blood Count 10.61 K/ul (4.8-10.8)
[2023-03-07] MEDS: DOCUSATE SODIUM 100 MG CAP PO SCH (07:56)
[2023-03-07 07:57] LABS: BUN Creatinine Ratio 4.8 (10-20); Calcium 8.8 mg/dl (8.6-10.3); Creatinine Clr Calc Pharmacy 10.3 ml/min; Est GFR (African American) 8.2 ml/min; Est GFR (Non-African American) 7.1 ml/min; Potassium 3.4 mmol/L (3.5-5.1)
[2023-03-07] MEDS: PANTOprazole 40 MG TAB PO SCH ×2 (07:57→21:33)
[2023-03-07] MEDS: FERRIC CITRATE 210 MG PO SCH ×2 (07:57→11:46)
[2023-03-07] MEDS: FLUTICASONE/VILANTEROL 200/25MCG 14 PUFFS/INHALER INH SCH (07:58)
[2023-03-07] MEDS: ASPIRIN 81 MG ECTAB PO SCH (07:58)
[2023-03-07] MEDS: CARBIDOPA/LEVODOPA 25/100MG TAB PO SCH ×3 (07:58→16:50)
[2023-03-07] MEDS: MUPIROCIN 2% OINT 22 GM TUBE EXT SCH ×2 (08:01→21:33)
[2023-03-07] MEDS ORDERED: PREGABALIN 100 MG CAP PO SCH (09:00)
--- NOTE | 2023-03-07 09:43 | Pharmacy Report ---
Pharmacy PK ABX Note - Date of Service March 07, 2023 - Assessment and Plan Assessment 03/07: * Random vancomycin level ~15.6 mcg/ml this morning. Patient received vancomycin 1750 mg x 1 yesterday AM (~15 mg/kg/dose) and also received HD session yesterday. * Pt typically on //Fri schedule for dialysis. Will follow to see if dialysis ordered again today, and if so will order supplemental dose tonight. If no dialysis ordered today, reasonable to hold doses of vancomycin today as patient is ESRD and do not anticipate level to change in 24 hours * Urine culture with E coli - changed to ctx which will cover. Reasonable to continue vancomycin for now until cultures finalize 03/06: * 77 year old F receiving Vancomycin for treatment of Bacteremia. Pertinent microbiologic data includes: Blood culture positive for Gram positive cocci and serology indicates MRSE. Urine cultures positive for G negative bacilli. Patient is also on Cefepime. * Patient has ESRD on hemodialysis. She received emergent HD yesterday and repeat today since she missed her outpatient HD session recently. Plan Vancomycin * Random level this AM ~15.6 mcg/ml (goal 15-20) * Will hold further doses today, unless HD is scheduled * Otherwise, will redose again after next HD session Pharmacy will continue to follow and will adjust dose as needed. Thank you.
--- NOTE | 2023-03-07 11:06 | Nephrology Progress Note ---
Date of Service March 07, 2023 Assessment & Plan Admission and Anticipated Discharge Date Admission Date: March 05, 2023 Subjective Assessment & Plan (1) ESRD (end stage renal disease) on dialysis: ESRD on chronic hemodialysis but patient refused to go to dialysis on Friday and then developed worsening confusion and pulmonary edema causing significant shortness of breath and respiratory failure. Her breathing is better and she is now on 2 liters o2 after dialysis with fluid removal yesterday and day before. Her normal dialysis day is so we will do her tomorrow again for 3.5 hours and try to take 3 kg off. AVF is tricky to cannulate and also had Infiltration. She will also need to have low dry weight as an outpatient S--she looks much better breathing flores. maintaining good oxygen saturation with 2 L oxygen by nasal cannula. She had dialysis yesterday and Friday Physical examination: Patient appears less confused. No resp distress. on 2liters o2 Mucous membrane is moist neck is supple Chest bilateral diminished breath sounds with basal crackles CVS S1-S2 regular soft systolic murmur heard Abdomen is soft nontender Extremities shows Trace edema Results & Data Vital Signs (Past 12 Hours) Vital Signs Temp Pulse Pulse Resp BP Pulse Ox O2 Del Method 03/07/23 08:10 65 03/07/23 07:52 36.7 C 72 20 115/64 95 Nasal Cannula 03/07/23 03:12 36.5 C 70 20 128/56 L 93 BiPAP 03/07/23 02:58 69 19 93 O2 Flow Rate FiO2 03/07/23 08:10 03/07/23 07:52 2 03/07/23 03:12 03/07/23 02:58 35
[2023-03-07] MEDS: cefTRIAXone SODIUM 2,000 MG in DEXTROSE 5 % MINI-B 50 ML IV SCH (11:45)
[2023-03-07] MEDS ORDERED: FERRIC CITRATE 210 MG TAB PO SCH (12:00)
--- NOTE | 2023-03-07 12:41 | Hospitalist Progress Note ---
Date of Service March 07, 2023 Assessment & Plan (1) Respiratory failure: (2) Elevated troponin I level: (3) UTI (urinary tract infection): Plan This is a 77yo F with a PMH DM II, hypothyroidism, COPD, ESRD on hemodialysis, anemia, rheumatoid arthritis, h/o sacral ulcers, history of rectal bleeding 2/2 hemorrhoids presents from home with shortness of breath. Patient has been refusing to go to hemodialysis and missed hemodialysis sessions. Her also noted that she is lethargic than her usual self. Acute hypoxic respiratory failure Acute metabolic encephalopathy ESRD on HD missed HD Acute on Chronic HFpEF in setting of missed HD Patient presents with altered mental status and increasing shortness of breath after missed hemodialysis session Chest x-ray on admission personally reviewed; cardiomegaly and pulmonary edema present. Admitting creatinine of 10.7 Mg per DL and BUN of 63 Mg per DL BNP elevated Status post emergent hemodialysis on March 05, 2023 and hemodialysis on 06 March Currently on nasal cannula; provide supplemental oxygen to maintain SpO2 above 92%. PT OT ordered Acute UTI Gram-positive bacteremia Urine culture shows E. coli; sensitive to ceftriaxone. Blood culture 2 out of 4 is positive for Staphylococcus; PCR shows Staph epidermidis Continue ceftriaxone; plan to treat for 7 days of antibiotics. Vancomycin ordered till final culture and sensitivity of blood culture is finalized. Repeat blood culture pending Anemia of end-stage renal disease Iron deficiency anemia Follows Dr. Gonzalez H&H stable, recent EGD done in January that was unremarkable Continue to monitor. T2DM Diet controlled, last A1c 5.8 in January,. monitor FBS for now will not implement sliding scale Acute/Chronic HFpEF LBBB Chest x-ray shows pulmonary edema BNP elevated Hemodialysis as per nephrology. Parkinson's disease Chronic, stable continue send Hypothyroidism Chronic, stable continue levothyroxine DVT ppx: SQ Heparin FULL CODE PCP: Yo Dispo: Admitted to PCU with acute hypoxic respiratory failure after missed dialysis sessions. . PT OT ordered. Referral sent to [facility]. Case management on board Time spent evaluating patient, direct bedside care, chart review, placing orders, interpretation of diagnostic studies, discussion with consultants, patient, and family members, as well as other required patient management activities is 50 minutes Please note the above document was generated using voice recognition software. It may contain grammatical, syntax or spelling errors. Any formal questions or concerns about the content, text or information contained within the body of this dictation should be directly addressed to the provider for clarification Admission and Anticipated Discharge Date Admission Date: March 05, 2023 Subjective Patient seen and examined at bedside. She is much more awake today. She is not in any respiratory distress. She denies any pain, fever, chills, shortness of breath, chest pain or abdominal pain. Review of Systems Review of Systems: All systems reviewed & are unremarkable except as noted in Subjective Physical Exam Physical Exam: Constitutional: Awake, able to answer some questions. Oriented to self and place. Respiratory: Decreased breath sounds at bilateral bases. Cardiovascular: RRR, no murmur, no edema Vessels: no JVD or carotid bruit Chest: normal inspection of chest Abdomen: Soft, nontender. Musculoskeletal: no cyanosis or clubbing, extremities motor strength 5/5 Neurologic: Awake, able to answer few questions. Able to follow some commands Results & Data Results & Data Vital Signs (Past 12 Hours) Vital Signs Temp Pulse Pulse Resp BP Pulse Ox O2 Del Method 03/07/23 11:56 36.4 C L 71 20 108/65 95 Nasal Cannula 03/07/23 08:10 65 03/07/23 08:00 Nasal Cannula 03/07/23 07:52 36.7 C 72 20 115/64 95 Nasal Cannula 03/07/23 03:12 36.5 C 70 20 128/56 L 93 BiPAP 03/07/23 02:58 69 19 93 O2 Flow Rate FiO2 03/07/23 11:56 2 03/07/23 08:10 03/07/23 08:00 03/07/23 07:52 2 03/07/23 03:12 03/07/23 02:58 35 Laboratory Results Laboratory Results WBC 10.61 K/ul (4.8-10.8) 03/07/23 07:13 RBC 3.20 M/uL (4.20-5.40) L 03/07/23 07:13 Hgb 9.4 g/dl (12.0-16.0) L 03/07/23 07:13 POC Hgb 10.2 g/dl (12.0-16.0) L 03/05/23 10:30 Hct 31.0 % (37.0-47.0) L 03/07/23 07:13 POC Hct 30 % (37-47) L 03/05/23 10:30 MCV 96.9 fL (80.0-100.0) 03/07/23 07:13 MCH 29.4 pg (25.0-34.0) 03/07/23 07:13 MCHC 30.3 g/dL (32.0-36.0) L 03/07/23 07:13 RDW Std Deviation 64.3 fL (36.4-46.3) H 03/07/23 07:13 RDW Coeff of Bhavin 18.0 % (11.5-14.5) H 03/07/23 07:13 Plt Count 295 K/uL (130-400) 03/07/23 07:13 MPV 11.0 fL (9.4-12.4) 03/07/23 07:13 Immature Gran % (Auto) 1.3 % 03/07/23 07:13 Neut % (Auto) 77.6 % 03/07/23 07:13 Lymph % (Auto) 7.8 % 03/07/23 07:13 Morgan % (Auto) 9.0 % 03/07/23 07:13 Eos % (Auto) 3.2 % 03/07/23 07:13 Baso % (Auto) 1.1 % 03/07/23 07:13 Neut # (Auto) 8.23 K/uL (1.40-6.50) H 03/07/23 07:13 Lymph # (Auto) 0.83 K/uL (1.20-3.40) L 03/07/23 07:13 Morgan # (Auto) 0.95 K/uL (0.11-0.59) H 03/07/23 07:13 Eos # (Auto) 0.34 K/uL (0.00-0.50) 03/07/23 07:13 Baso # (Auto) 0.12 K/uL (0.00-0.20) 03/07/23 07:13 Immature Gran # (Auto) 0.14 K/uL (0.01-0.20) 03/07/23 07:13 Absolute Nucleated RBC 0.02 K/uL (0.00-0.12) 03/07/23 07:13 Nucleated RBC % (auto) 0.2 % 03/07/23 07:13 PT 10.8 Seconds (9.0-12.0) 03/05/23 10:28 INR 1.0 (0.9-1.1) 03/05/23 10:28 APTT 29 Seconds (21-31) 03/05/23 10:28 PTT Ratio 1.0 03/05/23 10:28 ABG pH 7.43 (7.35-7.45) 03/05/23 19:43 ABG pCO2 44 mmHg (35-46) 03/05/23 19:43 ABG pO2 91 mmHg (80-95) 03/05/23 19:43 ABG HCO3 29 mmol/L (19-24) H 03/05/23 19:43 ABG O2 Saturation 98.1 % (90-95) H 03/05/23 19:43 ABG Base Excess 4.2 mEq/L (-9-1.8) H 03/05/23 19:43 Richard Test Pos (Pos) 03/05/23 19:43 VBG pH 7.33 (7.36-7.41) L 03/05/23 10:28 VBG pCO2 55 mmHg (38-50) H 03/05/23 10:28 VBG pO2 45 mmHg 03/05/23 10:28 VBG HCO3 29 mmol/L 03/05/23 10:28 VBG O2 Saturation 66.8 % 03/05/23 10:28 VBG Base Excess 1.9 mEq/L 03/05/23 10:28 Oxygen Given 28% 03/05/23 19:43 POC Sodium 138 mmol/L (135-144) 03/05/23 10:30 Sodium 139 mmol/L (136-145) 03/07/23 07:13 POC Potassium 4.2 mmol/L (3.3-5.0) 03/05/23 10:30 Potassium 3.4 mmol/L (3.5-5.1) L 03/07/23 07:13 POC Chloride 102 mmol/L (101-112) 03/05/23 10:30 Chloride 100 mmol/L (98-107) 03/07/23 07:13 Carbon Dioxide 27 mmol/L (21-32) 03/07/23 07:13 POC Total CO2 28 mmol/L (24-31) 03/05/23 10:30 Anion Gap 12 (3-11) H 03/07/23 07:13 POC Anion Gap 13.0 mmol/L (16-25) L 03/05/23 10:30 POC BUN 60 mg/dl (7-18) H 03/05/23 10:30 BUN 26 mg/dl (6-23) H 03/07/23 07:13 Creatinine 5.43 mg/dl (0.6-1.2) H* D 03/07/23 07:13 POC Creatinine 12.0 mg/dl (0.6-1.3) H* 03/05/23 10:30 Est Cr Clr Drug Dosing 10.3 ml/min 03/07/23 07:13 Est GFR ( Amer) 8.2 ml/min 03/07/23 07:13 Est GFR (Non-Af Amer) 7.1 ml/min 03/07/23 07:13 BUN/Creatinine Ratio 4.8 (10-20) L 03/07/23 07:13 Glucose 94 mg/dl (70-99(Fasting)) 03/07/23 07:13 POC Glucose 97 mg/dl (70-99) 03/06/23 06:35 POC Glucose (other) 119 mg/dl (70-99) H 03/05/23 10:30 Lactate 1.3 mmol/L (0.4-2.0) 03/05/23 10:28 Calcium 8.8 mg/dl (8.6-10.3) 03/07/23 07:13 POC Ioniz Calcium Oh 1.05 mmol/l (1.12-1.32) L 03/05/23 10:30 Magnesium 2.1 mg/dl (1.7-2.4) 03/06/23 05:51 Total Bilirubin 0.4 mg/dl (0.2-1.0) 03/06/23 05:51 Direct Bilirubin 0.0 mg/dl (0-0.2) 03/05/23 10:28 AST 15 U/L (13-39) 03/06/23 05:51 ALT 6 U/L (7-52) L 03/06/23 05:51 Alkaline Phosphatase 92 U/L (34-104) 03/06/23 05:51 Troponin I High Sens 149.8 pg/ml (0-14) H* D 03/06/23 00:29 B-Natriuretic Peptide 1382 pg/ml (0-100) H 03/05/23 10:29 Total Protein 6.9 gm/dl (6.0-8.3) 03/06/23 05:51 Albumin 3.7 gm/dl (3.4-5.0) 03/06/23 05:51 Globulin 3.2 gm/dl (2.5-4.0) 03/06/23 05:51 Albumin/Globulin Ratio 1.2 (0.9-2) 03/06/23 05:51 Procalcitonin 1.31 ng/ml (0-0.5) H 03/05/23 10:28 Urine Color Brown 03/05/23 10:31 Urine Appearance Turbid (Clear) A 03/05/23 10:31 Urine pH 6.0 (4.5-7.5) 03/05/23 10:31 Ur Specific Manson 1.020 (1.000-1.030) 03/05/23 10:31 Urine Protein 3+ (Negative) H 03/05/23 10:31 Urine Glucose (UA) Negative (Negative) 03/05/23 10:31 Urine Ketones Negative (Negative) 03/05/23 10:31 Urine Blood 3+ (Negative) H 03/05/23 10:31 Urine Nitrite Negative (Negative) 03/05/23 10:31 Urine Bilirubin 1+ (Negative) H 03/05/23 10:31 Urine Urobilinogen Negative (Negative) 03/05/23 10:31 Ur Leukocyte Esterase 3+ (Negative) H 03/05/23 10:31 Urine RBC >30 /hpf (0-4) H 03/05/23 10:31 Urine WBC >30 /hpf (0-5) H 03/05/23 10:31 Ur Epithelial Cells 10-20 /lpf (0-5) H 03/05/23 10:31 Ur Renal Epithelial Cell 0-5 /lpf (0-5) 03/05/23 10:31 Urine Bacteria 2+ (Negative) H 03/05/23 10:31 Hyaline Casts 10-30 /lpf (0-5) H 03/05/23 10:31 Granular Casts 1-5 /lpf (0) H 03/05/23 10:31 Nasal Screen MRSA (PCR) Positive (Negative) A 03/05/23 Unknown Random Vancomycin 15.6 mcg/ml (10-20) 03/07/23 07:13 Adenovirus (PCR) Not Detected (NotDetected) 03/05/23 Unknown B. pertussis DNA (PCR) Not Detected (NotDetected) 03/05/23 Unknown B.parapertussis DNA PCR Not Detected (NotDetected) 03/05/23 Unknown C. pneumoniae DNA (PCR) Not Detected (NotDetected) 03/05/23 Unknown Coronavirus OC43 (PCR) Not Detected (NotDetected) 03/05/23 Unknown Coronavirus HKU1 (PCR) Not Detected (NotDetected) 03/05/23 Unknown Coronavirus 229E (PCR) Not Detected (NotDetected) 03/05/23 Unknown SARS-CoV-2 (PCR) Not Detected (NotDetected) 03/05/23 Unknown Coronavirus NL63 (PCR) Not Detected (NotDetected) 03/05/23 Unknown Human Metapneumovir PCR Not Detected (NotDetected) 03/05/23 Unknown Influenza Type A (PCR) Not Detected (NotDetected) 03/05/23 Unknown Influenza Type B (PCR) Not Detected (NotDetected) 03/05/23 Unknown M. pneumoniae (PCR) Not Detected (NotDetected) 03/05/23 Unknown Parainfluenza 1 (PCR) Not Detected (NotDetected) 03/05/23 Unknown Parainfluenza 2 (PCR) Not Detected (NotDetected) 03/05/23 Unknown Parainfluenza 3 (PCR) Not Detected (NotDetected) 03/05/23 Unknown Parainfluenza 4 (PCR) Not Detected (NotDetected) 03/05/23 Unknown RSV (PCR) Not Detected (NotDetected) 03/05/23 Unknown Entero/Rhino (PCR) Not Detected (NotDetected) 03/05/23 Unknown Staphylococcus sp PCR DETECTED (NotDetected) A 03/05/23 10:28 mecA/C-Methicil Resis Gene DETECTED (NotDetected) A 03/05/23 10:28 Staph epidermidis (PCR) DETECTED (NotDetected) A 03/05/23 10:28 Bld Cult ID Panel PCR See PCR Comment (NotDetected) 03/05/23 10:28 Blood Type O Positive 03/05/23 10:28 Antibody Screen NEGATIVE 03/05/23 10:28 Impressions Chest X-Ray 03/05/23 10:14 XR chest 1V portable CLINICAL HISTORY: Sepsis TECHNIQUE: Single frontal radiograph of the chest was obtained. Comparison: Comparison is made to chest radiograph 01/21/2023 FINDINGS: No lines and tubes are seen. Cardiomegaly is noted. There is prominence and cephalization of the vasculature with Reyes B lines seen. Multifocal airspace opacities are seen. No evidence of pleural effusion or pneumothorax. IMPRESSION: Cardiomegaly and moderate pulmonary edema. Airspace opacities may represent atelectasis, pneumonia, aspiration, and/or alveolar edema. ACT 112: Negative or not required by law. Electronically signed by: Gato Nix M.D. 03/05/2023 11:02 AM (1) Respiratory failure Chronicity: acute Respiratory failure complication: hypoxia Qualified Code(s): J96.01 - Acute respiratory failure with hypoxia (3) UTI (urinary tract infection) Urinary tract infection type: acute cystitis Hematuria presence: with hemat uria Qualified Code(s): N30.01 - Acute cystitis with hematuria
--- NOTE | 2023-03-07 18:48 | Electrocardiogram Report ---
Test Reason : Blood Pressure : / mmHG Vent. Rate : 073 BPM Atrial Rate : 073 BPM P-R Int : 168 ms QRS Dur : 146 ms QT Int : 448 ms P-R-T Axes : 072 098 061 degrees QTc Int : 493 ms Normal sinus rhythm Left bundle branch block Abnormal ECG When compared with ECG of 21-JAN-2023 10:20, Premature ventricular complexes are no longer Present Confirmed by Ciro Kidd ([id number]) on 03/07/2023 6:47:57 PM Referred By: REFERRED SELF Confirmed By:Ciro Kidd
[2023-03-07] MEDS: ISOSORBIDE MONO EXTENDED REL 30 MG TABCR PO SCH (21:32)
[2023-03-07] MEDS: VITAMIN B COMPLEX TAB PO SCH (21:32)
[2023-03-07] MEDS: SERTRALINE HCL 100 MG TABLET PO SCH (21:32)
[2023-03-07] MEDS: ATORVASTATIN 40 MG TAB PO SCH (21:32)
--- NOTE | 2023-03-07 21:52 | Electrocardiogram Report ---
Test Reason : Blood Pressure : / mmHG Vent. Rate : 068 BPM Atrial Rate : 075 BPM P-R Int : 160 ms QRS Dur : 144 ms QT Int : 494 ms P-R-T Axes : 002 034 043 degrees QTc Int : 525 ms Poor data quality, interpretation may be adversely affected Sinus rhythm with frequent Premature ventricular complexes Left bundle branch block Abnormal ECG When compared with ECG of 05-MAR-2023 10:18, Premature ventricular complexes are now Present Confirmed by Ciro Kidd ([id number]) on 03/07/2023 9:51:50 PM Referred By: REFERRED SELF Confirmed By:Ciro Kidd
[2023-03-08] MEDS: LEVOTHYROXINE SODIUM 125 MCG TABLET PO SCH (06:21)
[2023-03-08] MEDS: HEPARIN SOD 5,000 UNIT/0.5 ML VIAL SQ SCH ×3 (06:21→21:25)
[2023-03-08] MEDS ORDERED: SODIUM CHLORIDE 0.9% 1,000 ML IV PRN (07:00)
[2023-03-08] MEDS ORDERED: EPOETIN ALFA 10,000 UNITS/ML VIAL IV ONE (07:00)
[2023-03-08] MEDS: ASPIRIN 81 MG ECTAB PO SCH (07:57)
[2023-03-08] MEDS: PANTOprazole 40 MG TAB PO SCH ×2 (07:57→21:26)
[2023-03-08] MEDS: CARBIDOPA/LEVODOPA 25/100MG TAB PO SCH ×3 (07:58→17:27)
[2023-03-08] MEDS: FLUTICASONE/VILANTEROL 200/25MCG 14 PUFFS/INHALER INH SCH (07:58)
[2023-03-08] MEDS: MUPIROCIN 2% OINT 22 GM TUBE EXT SCH ×2 (08:01→21:26)
[2023-03-08] MEDS: cefTRIAXone SODIUM 2,000 MG in DEXTROSE 5 % MINI-B 50 ML IV SCH (12:00)
--- NOTE | 2023-03-08 13:17 | Pharmacy Report ---
Pharmacy PK ABX Note - Date of Service March 08, 2023 - Assessment and Plan Assessment 03/08: Level yesterday 15.6 mcg/ml, anticipate level ~10 mcg/ml following dialysis today. Will redose with 1000 mg x 1. Random level in AM, awaiting further culture results 03/07: * Random vancomycin level ~15.6 mcg/ml this morning. Patient received vancomycin 1750 mg x 1 yesterday AM (~15 mg/kg/dose) and also received HD session yesterday. * Pt typically on //Fri schedule for dialysis. Will follow to see if dialysis ordered again today, and if so will order supplemental dose tonight. If no dialysis ordered today, reasonable to hold doses of vancomycin today as patient is ESRD and do not anticipate level to change in 24 hours * Urine culture with E coli - changed to ctx which will cover. Reasonable to continue vancomycin for now until cultures finalize 03/06: * 77 year old F receiving Vancomycin for treatment of Bacteremia. Pertinent microbiologic data includes: Blood culture positive for Gram positive cocci and serology indicates MRSE. Urine cultures positive for G negative bacilli. Patient is also on Cefepime. * Patient has ESRD on hemodialysis. She received emergent HD yesterday and repeat today since she missed her outpatient HD session recently. Plan Vancomycin * Random level 03/07 AM ~15.6 mcg/ml (goal 15-20) * Redose with 1000 mg x 1 today * Random level in AM Pharmacy will continue to follow and will adjust dose as needed. Thank you.
--- NOTE | 2023-03-08 13:31 | Nephrology Progress Note ---
Date of Service March 08, 2023 Assessment & Plan (1) ESRD (end stage renal disease) on dialysis: Plan: ESRD on chronic hemodialysis but patient has refused to go to dialysis and then developed worsening confusion and pulmonary edema causing significant shortness of breath and respiratory failure. We are doing dialysis right now and hopefully this will make her symptoms better. Her normal dialysis day is TTS - HD today, will try to dialysis her again with heparin.. AVF is tricky to cannulate and also had Infiltration. (2) Respiratory failure: (3) Pulmonary edema: Plan: Respiratory failure requiring BiPAP predominantly related with pulmonary edema. Patient has not had dialysis 5 days now and has developed pulmonary edema causing respiratory failure. We are doing dialysis right now and we will plan to take as much as we can take--going for 3.5 to 4 kg. Respiratory virus panel was negative. She is getting empiric antibiotics Admission and Anticipated Discharge Date Admission Date: March 05, 2023 Subjective Patient seen and examined on dialysis. Poor blood flow in both the needles, She is not in any respiratory distress. She denies any pain, fever, chills, shortness of breath, chest pain or abdominal pain. Review of Systems 2 Review of Systems: All systems reviewed & are unremarkable except as noted in HPI & below Physical Exam 2 Physical Exam: Patient appears less confused. No resp distress. on 2liters o2 Mucous membrane is moist neck is supple Chest bilateral diminished breath sounds with basal crackles CVS S1-S2 regular soft systolic murmur heard Abdomen is soft nontender Extremities shows Trace edema Results & Data Vital Signs (Past 12 Hours) Vital Signs Temp Pulse Pulse Resp BP Pulse Ox O2 Del Method 03/08/23 12:15 36.4 C L 64 18 126/69 91 Nasal Cannula 03/08/23 08:11 36.4 C L 66 18 105/63 93 Nasal Cannula 03/08/23 07:44 67 03/08/23 03:00 36.6 C 47 L 17 125/59 L 95 CPAP 03/08/23 02:45 74 14 93 O2 Flow Rate FiO2 03/08/23 12:15 2 03/08/23 08:11 2 03/08/23 07:44 03/08/23 03:00 03/08/23 02:45 35 Laboratory Results 03/07/23 07:13 03/07/23 07:13 (2) Respiratory failure Chronicity: acute Respiratory failure complication: hypoxia Qualified Code(s): J96.01 - Acute respiratory failure with hypoxia (3) Pulmonary edema Chronicity: acute Qualified Code(s): J81.0 - Acute pulmonary edema
[2023-03-08] MEDS: PREGABALIN 100 MG CAP PO SCH (14:00)
--- NOTE | 2023-03-08 14:11 | Hospitalist Progress Note ---
Date of Service March 08, 2023 Assessment & Plan (1) Respiratory failure: (2) Elevated troponin I level: (3) UTI (urinary tract infection): Plan This is a 77yo F with a PMH DM II, hypothyroidism, COPD, ESRD on hemodialysis, anemia, rheumatoid arthritis, h/o sacral ulcers, history of rectal bleeding 2/2 hemorrhoids presents from home with shortness of breath. Patient has been refusing to go to hemodialysis and missed hemodialysis sessions. Her also noted that she is lethargic than her usual self. Acute hypoxic respiratory failure Acute metabolic encephalopathy ESRD on HD missed HD Acute on Chronic HFpEF in setting of missed HD Patient presents with altered mental status and increasing shortness of breath after missed hemodialysis session Chest x-ray on admission personally reviewed; cardiomegaly and pulmonary edema present. Admitting creatinine of 10.7 Mg per DL and BUN of 63 Mg per DL BNP elevated Status post emergent hemodialysis on March 05, 2023 and hemodialysis on 06 March Hemodialysis as per nephrology. Currently on nasal cannula; provide supplemental oxygen to maintain SpO2 above 92%. PT OT ordered Acute UTI Gram-positive bacteremia Sepsis, POA Urine culture shows E. coli; sensitive to ceftriaxone. Blood culture 2 out of 4 is positive for Staphylococcus; PCR shows Staph epidermidis Continue ceftriaxone; plan to treat for 7 days of antibiotics. Vancomycin discontinued and repeat blood culture is negative. Anemia of end-stage renal disease Iron deficiency anemia Follows Dr. Gonzalez H&H robi, recent EGD done in January that was unremarkable Continue to monitor. T2DM Diet controlled, last A1c 5.8 in January,. monitor FBS for now will not implement sliding scale Acute/Chronic HFpEF LBBB Demand ischemia Chest x-ray shows pulmonary edema BNP elevated Hemodialysis as per nephrology. Patient's troponin elevated on admission; down trended. Echocardiogram shows EF of 50 to 55%; no wall motion abnormalities. Parkinson's disease Chronic, stable continue send Hypothyroidism Chronic, stable continue levothyroxine DVT ppx: SQ Heparin FULL CODE PCP: Yo Dispo: Admitted to PCU with acute hypoxic respiratory failure after missed dialysis sessions. . PT OT ordered. Referral sent to [facility]. Case m anagement on board Time spent evaluating patient, direct bedside care, chart review, placing orders, interpretation of diagnostic studies, discussion with consultants, patient, and family members, as well as other required patient management activities is 50 minutes Please note the above document was generated using voice recognition software. It may contain grammatical, syntax or spelling errors. Any formal questions or concerns about the content, text or information contained within the body of this dictation should be directly addressed to the provider for clarification Admission and Anticipated Discharge Date Admission Date: March 05, 2023 Subjective Patient seen and examined at bedside. She appears tired and lethargic. Unremarkable for age. denies any pain or discomfort. Review of Systems Review of Systems: All systems reviewed & are unremarkable except as noted in Subjective Physical Exam Physical Exam: Constitutional: Awake, able to answer some questions. Oriented to self and place. Respiratory: Decreased breath sounds at bilateral bases. Cardiovascular: RRR, no murmur, no edema Vessels: no JVD or carotid bruit Chest: normal inspection of chest Abdomen: Soft, nontender. Musculoskeletal: no cyanosis or clubbing, extremities motor strength 5/5 Neurologic: Awake, able to answer few questions. Able to follow some commands Results & Data Results & Data Vital Signs (Past 12 Hours) Vital Signs Temp Pulse Pulse Resp BP Pulse Ox O2 Del Method 03/08/23 12:15 36.4 C L 64 18 126/69 91 Nasal Cannula 03/08/23 08:11 36.4 C L 66 18 105/63 93 Nasal Cannula 03/08/23 07:44 67 03/08/23 03:00 36.6 C 47 L 17 125/59 L 95 CPAP 03/08/23 02:45 74 14 93 O2 Flow Rate FiO2 03/08/23 12:15 2 03/08/23 08:11 2 03/08/23 07:44 03/08/23 03:00 03/08/23 02:45 35 (1) Respiratory failure Chronicity: acute Respiratory failure complication: hypoxia Qualified Code(s): J96.01 - Acute respiratory failure with hypoxia (3) UTI (urinary tract infection) Urinary tract infection type: acute cystitis Hematuria presence: with hematuria Qualified Code(s): N30.01 - Acute cystitis with hematuria
[2023-03-08] MEDS ORDERED: FERRIC CITRATE 210 MG PO SCH (17:00)
[2023-03-08] MEDS ORDERED: VANCOMYCIN HCL 1,000 MG in SODIUM CHLORIDE 0.9% 250 ML IV ONE (17:00)
--- NOTE | 2023-03-08 18:53 | Discharge Summary ---
Date of Service March 08, 2023 Admission HPI Per Admitting Provider This is a 77yo F with a PMH DM II, hypothyroidism, COPD, ESRD on hemodialysis, anemia, rheumatoid arthritis, h/o sacral ulcers, history of rectal bleeding 2/2 hemorrhoids and other medical problems listed below who presents from home 2/2 SOB. Pt is at bedside who helps elicit history. She has been doing well up until the last 4 days. She has been refusing to go to HD. notes pt has become more confused. Patient arrived via EMS requiring BiPAP therapy. She also had altered mental status. Upon arrival lab work notable for VBG pH 7.33, CO2 of 55, WBC 13.1, H&H 9.3 and 30, platelet 278, BUN 63, creatinine 10.75, electrolytes within normal limits, elevated troponin at 3-3.4, elevated BNP 1382, elevated procalcitonin 1.31 and abnormal urinalysis concerning for infection. Respiratory bio fire panel was negative.Chest x-ray concerning for moderate pulmonary edema. We were consulted for admission and emergent hemodialysis. ROS unable to be obtained from patient. She was empirically treated with IV cefepime in ED for likely urinary tract infection. Discharge Exam Constitutional: Awake, able to answer some questions. Oriented to self and place. Respiratory: Decreased breath sounds at bilateral bases. Cardiovascular: RRR, no murmur, no edema Vessels: no JVD or carotid bruit Chest: normal inspection of chest Abdomen: Soft, nontender. Musculoskeletal: no cyanosis or clubbing, extremities motor strength 5/5 Neurologic: Awake, able to answer few questions. Able to follow some commands Discharge Data Allergies Allergy/AdvReac Type Severity Reaction Status Date / Time No Known Allergies Allergy Verified 03/05/23 12:17 Consultations 03/05/23 11:51 ED Decision to Admit Stat 03/05/23 11:58 Consult Nephrology Routine 03/08/23 18:15 Burn CD for patient Routine Hospital Course (1) Respiratory failure: (2) Elevated troponin I level: (3) UTI (urinary tract infection): Plan This is a 77yo F with a PMH DM II, hypothyroidism, COPD, ESRD on hemodialysis, anemia, rheumatoid arthritis, h/o sacral ulcers, history of rectal bleeding 2/2 hemorrhoids presents from home with shortness of breath. Patient has been refusing to go to hemodialysis and missed hemodialysis sessions. Her also noted that she is lethargic than her usual self. Acute hypoxic respiratory failure Acute metabolic encephalopathy ESRD on HD missed HD Acute on Chronic HFpEF in setting of missed HD Patient presents with altered mental status and increasing shortness of breath after missed hemodialysis session Chest x-ray on admission personally reviewed; cardiomegaly and pulmonary edema present. Admitting creatinine of 10.7 Mg per DL and BUN of 63 Mg per DL BNP elevated Status post emergent hemodialysis on March 05, 2023 and hemodialysis on 06 March Hemodialysis as per nephrology. Currently on nasal cannula; provide supplemental oxygen to maintain SpO2 above 92%. PT OT ordered Acute UTI Gram-positive bacteremia Sepsis, POA Urine culture shows E. coli; sensitive to ceftriaxone. Blood culture 2 out of 4 is positive for Staphylococcus; PCR shows Staph epidermidis Continue ceftriaxone; plan to treat for 7 days of antibiotics. Vancomycin discontinued and repeat blood culture is negative. Anemia of end-stage renal disease Iron deficiency anemia Follows Dr. Gonzalez H&Miriam rosenbaum, recent EGD done in January that was unremarkable Continue to monitor. T2DM Diet controlled, last A1c 5.8 in January,. monitor FBS for now will not implement sliding scale Acute/Chronic HFpEF LBBB Demand ischemia Chest x-ray shows pulmonary edema BNP elevated Hemodialysis as per nephrology. Patient's troponin elevated on admission; down trended. Echocardiogram shows EF of 50 to 55%; no wall motion abnormalities. Parkinson's disease Chronic, stable continue send Hypothyroidism Chronic, stable continue levothyroxine DVT ppx: SQ Heparin FULL CODE PCP: Yo Dispo: Admitted to PCU with acute hypoxic respiratory failure after missed dialysis sessions. . PT OT ordered. Referral sent to [facility]. Case management on board Time spent evaluating patient, direct bedside care, chart review, placing orders, interpretation of diagnostic studies, discussion with consultants, patient, and family members, as well as other required patient management activities is 50 minutes Please note the above document was generated using voice recognition software. It may contain grammatical, syntax or spelling errors. Any formal questions or concerns about the content, text or information contained within the body of this dictation should be directly addressed to the provider for clarification Discharge Plan Discharge Items Patient Disposition: Transfer Acute Care Hospital Reason For Visit: ACUTE RESPIRATORY FAILURE Discharge Diagnosis: Acute Hypoxic Respiratory Failure Acute UTI Activity: Resume your previous activity Non-emergency contact: Primary Care Provider Call non-emergency contact if: you have any medication questions Follow-up/Referrals: Bella Villanueva MD [Primary Care Provider] - Diet: Regular Addtl Attending Provider Instructions: You are transferred to [facility] for Fistulogram. Pending Studies at Discharge: No Stand-Alone Forms: My [facility] Skilled Items Patient informed of condition?: Yes DNR: Yes Discharge Level of Care: Other Communicable Disease: No Discharge Prognosis: Stable Lines: Peripheral IV Urinary Catheter: No Medications and DC Order Prescriptions: Continued atorvastatin 80 mg tablet 80 mg PO QPM isosorbide mononitrate 30 mg tablet extended release 24 hr 30 mg PO QPM sertraline 100 mg tablet 100 mg PO QPM aspirin 81 mg Tablet,Delayed Release (Dr/Ec) 162 mg PO QAM Patient Comments: afternoon hours lidocaine-prilocaine 2.5-2.5 % cream 1 applic topical DIRECTED PRN (Reason: 1 HR PRIOR TO DIALYSIS) Rx Instructions: Apply small amount to access site 1 hr before dialysis. levothyroxine 125 mcg tablet 125 mcg PO QAM docusate sodium [Colace] 100 mg Capsule 100 mg PO Q2D Rx Instructions: 3 times per week carbidopa-levodopa 25-100 mg tablet 1 tab PO TIDM pregabalin 100 mg capsule 100 mg PO .BID 4DAYSWEEK Patient Comments: on dialysis days takes 2 in the evening , , and saturdays Rx Instructions: Take on Sun, mon, wed, fri, non dialyisis days Nanci-Samuel 0.8 mg Tablet 1 tab PO QPM pantoprazole 20 mg tablet,delayed release (DR/EC) 20 mg PO BID acetaminophen [Tylenol] 325 mg Tablet 650 mg PO Q6H PRN (Reason: Pain) meclizine 12.5 mg Tablet 12.5 mg PO TID PRN (Reason: Dizziness) hydrocortisone 2.5 % Cream With Perineal Applicator 1 applic MA DAILY PRN (Reason: Hemorrhoids) epinephrine [EpiPen] 0.3 mg/0.3 mL Auto-Injector 0.3 mg IM DIRECTED PRN (Reason: Allergic Reaction) melatonin 10 mg Tablet 10 mg PO HS PRN (Reason: Sleep) nystatin [Nystop] 100,000 unit/gram Powder 1 applic EXT BID Qty: 30 0RF Auryxia 210 mg iron tablet 420 mg PO TIDM lidocaine-prilocaine 2.5-2.5 % cream 1 applic topical DIRECTED pregabalin 100 mg capsule 100 mg PO .TID 3 DAYS A WEEK Rx Instructions: maile Herrmann sat, On dialysis days fluticasone furoate-vilanterol [Breo Ellipta] 200-25 mcg/dose Blister With Device 1 inh INHALATION DAILY Hemorroid Supp 1 supp MA DIRECTED PRN (Reason: Hemorrhoids) Discharge Orders: Discharge Order (Routine); Ordered 03/08/23 Ordered By: Gerard Shea Admission Data Admit Date/Time: 03/05/23 11:50 Attending Provider: Gerard Shea Admit Provider: Katherine Colmenares Primary Care Provider: Bella Villanueva. Other Providers: Katherine Colmenares; Walter Baig; [place]
[2023-03-08] MEDS: SERTRALINE HCL 100 MG TABLET PO SCH (21:24)
[2023-03-08] MEDS: ISOSORBIDE MONO EXTENDED REL 30 MG TABCR PO SCH (21:24)
[2023-03-08] MEDS: VITAMIN B COMPLEX TAB PO SCH (21:25)
[2023-03-08] MEDS: ATORVASTATIN 40 MG TAB PO SCH (21:25)
--- NOTE | 2023-03-09 09:18 | Discharge Summary ---
Date of Service March 09, 2023 Admission HPI Per Admitting Provider This is a 77yo F with a PMH DM II, hypothyroidism, COPD, ESRD on hemodialysis, anemia, rheumatoid arthritis, h/o sacral ulcers, history of rectal bleeding 2/2 hemorrhoids and other medical problems listed below who presents from home 2/2 SOB. Pt is at bedside who helps elicit history. She has been doing well up until the last 4 days. She has been refusing to go to HD. notes pt has become more confused. Patient arrived via EMS requiring BiPAP therapy. She also had altered mental status. Upon arrival lab work notable for VBG pH 7.33, CO2 of 55, WBC 13.1, H&H 9.3 and 30, platelet 278, BUN 63, creatinine 10.75, electrolytes within normal limits, elevated troponin at 3-3.4, elevated BNP 1382, elevated procalcitonin 1.31 and abnormal urinalysis concerning for infection. Respiratory bio fire panel was negative.Chest x-ray concerning for moderate pulmonary edema. We were consulted for admission and emergent hemodialysis. ROS unable to be obtained from patient. She was empirically treated with IV cefepime in ED for likely urinary tract infection. Admission Exam Per Admitting Provider Physical exam is notable for an encephalopathic woman, not following commands, but maintaining airway and tolerating bipap. Trace BLE edema. difficult to appreciate breath sounds secondary to patient participation Principal Diagnosis AV fistula malfunction ESRD on hemodialysis Acute hypoxic respiratory failure Acute UTI Discharge Exam Patient was not examined. Discharge Data Allergies Allergy/AdvReac Type Severity Reaction Status Date / Time No Known Allergies Allergy Verified 03/05/23 12:17 Consultations 03/05/23 11:51 ED Decision to Admit Stat 03/05/23 11:58 Consult Nephrology Routine 03/08/23 18:15 Burn CD for patient Routine Hospital Course (1) Respiratory failure: (2) Elevated troponin I level: (3) UTI (urinary tract infection): Plan This is a 77yo F with a PMH DM II, hypothyroidism, COPD, ESRD on hemodialysis, anemia, rheumatoid arthritis, h/o sacral ulcers, history of rectal bleeding 2/2 hemorrhoids presents from home with shortness of breath. Patient has been refusing to go to hemodialysis and missed hemodialysis sessions. Her also noted that she is lethargic than her usual self. Patient underwent emergent hemodialysis on March 05 and March 06. Her urine culture was positive for E. coli for which she was treated with ceftriaxone. Her blood culture 2 out of 4 on admission showed Staph epidermidis. Repeat blood culture were negative. Patient was back to her normal mentation. She was saturating well at 2 L of nasal cannula. There was difficulty accessing patient's AV fistula on March 08 for hemodialysis. Nephrology recommended transfer to tertiary care center for evaluation of AV fistula malfunction. Patient was accepted at [facility]. Patient was transferred in the early hours of March 09, 2023. Please note the above document was generated using voice recognition software. It may contain grammatical, syntax or spelling errors. Any formal questions or concerns about the content, text or information contained within the body of this dictation should be directly addressed to the provider for clarification Total Time Total Time Spent Total Time Spent (In Minutes): 10 Total Time Includes: Discharge Planning, Medication Reconciliation, Communication With Other Providers and Other Discharge Plan Discharge Items Patient Disposition: Transfer Acute Care Hospital Reason For Visit: ACUTE RESPIRATORY FAILURE Discharge Diagnosis: Acute Hypoxic Respiratory Failure Acute UTI Activity: Resume your previous activity Non-emergency contact: Primary Care Provider Call non-emergency contact if: you have any medication questions Follow-up/Referrals: Bella Villanueva MD [Primary Care Provider] - Diet: Regular Addtl Attending Provider Instructions: You are transferred to [facility] for Fistulogram. Pending Studies at Discharge: No Stand-Alone Forms: My [facility] Skilled Items Patient informed of condition?: Yes DNR: Yes Discharge Level of Care: Other Communicable Disease: No Discharge Prognosis: Stable Lines: Peripheral IV Urinary Catheter: No Medications and DC Order Prescriptions: Continued atorvastatin 80 mg tablet 80 mg PO QPM isosorbide mononitrate 30 mg tablet extended release 24 hr 30 mg PO QPM sertraline 100 mg tablet 100 mg PO QPM aspirin 81 mg Tablet,Delayed Release (Dr/Ec) 162 mg PO QAM Patient Comments: afternoon hours lidocaine-prilocaine 2.5-2.5 % cream 1 applic topical DIRECTED PRN (Reason: 1 HR PRIOR TO DIALYSIS) Rx Instructions: Apply small amount to access site 1 hr before dialysis. levothyroxine 125 mcg tablet 125 mcg PO QAM docusate sodium [Colace] 100 mg Capsule 100 mg PO Q2D Rx Instructions: 3 times per week carbidopa-levodopa 25-100 mg tablet 1 tab PO TIDM pregabalin 100 mg capsule 100 mg PO .BID 4DAYSWEEK Patient Comments: on dialysis days takes 2 in the evening , , and saturdays Rx Instructions: Take on Sun, mon, wed, fri, non dialyisis days Nanci-Samuel 0.8 mg Tablet 1 tab PO QPM pantoprazole 20 mg tablet,delayed release (DR/EC) 20 mg PO BID acetaminophen [Tylenol] 325 mg Tablet 650 mg PO Q6H PRN (Reason: Pain) meclizine 12.5 mg Tablet 12.5 mg PO TID PRN (Reason: Dizziness) hydrocortisone 2.5 % Cream With Perineal Applicator 1 applic RI DAILY PRN (Reason: Hemorrhoids) epinephrine [EpiPen] 0.3 mg/0.3 mL Auto-Injector 0.3 mg IM DIRECTED PRN (Reason: Allergic Reaction) melatonin 10 mg Tablet 10 mg PO HS PRN (Reason: Sleep) nystatin [Nystop] 100,000 unit/gram Powder 1 applic EXT BID Qty: 30 0RF Auryxia 210 mg iron tablet 420 mg PO TIDM lidocaine-prilocaine 2.5-2.5 % cream 1 applic topical DIRECTED pregabalin 100 mg capsule 100 mg PO .TID 3 DAYS A WEEK Rx Instructions: , , fri, On dialysis days fluticasone furoate-vilanterol [Breo Ellipta] 200-25 mcg/dose Blister With Device 1 inh INHALATION DAILY Hemorroid Supp 1 supp RI DIRECTED PRN (Reason: Hemorrhoids) Discharge Orders: Discharge Order (Routine); Ordered 03/08/23 Ordered By: Gerard Shea Admission Data Admit Date/Time: 03/05/23 11:50 Attending Provider: Gerard Shea Admit Provider: Katherine Colmenares Primary Care Provider: Bella Villanueva Other Providers: Katherine Colmenares; Walter Baig; [facility]
== END 2023-03-09 02:00 | disposition short-term general hospital (02) | DRG 871 ==
LOC: ED 10:09 → EDINP 11:50 → SUATTDRO 11:50 → 2S 18:05

== ENCOUNTER 2023-05-23 09:01 | Inpatient (IN) ==
--- NOTE | 2023-05-23 09:47 | Emergency Department Note ---
Impression & Plan AMS (altered mental status), Pneumonia, Acute respiratory failure with hypercapnia, CKD (chronic kidney disease) ED Provider Note ED Provider Note NAME: CHESTER FRENCH AGE:77 SEX: Female : 1945 ARRIVES VIA: EMS INFORMANT: Patient ED PROVIDER(s): Briseida Hazel DO CHIEF COMPLAINT: Altered mental status, hypoxia HPI: This is a 77-year-old female brought in by EMS from [facility] due to altered mental status and hypoxia. EMS reports staff found patient to be hypoxic last night and so she was placed on oxygen. This morning she was still hypoxic and seemed more tired/confused than normal so 911 was called. On arrival here patient unable to provide any history, as she is very somnolent/lethargic and only responsive to painful stimuli. PAST MEDICAL HISTORY:See Below PAST SURGICAL HISTORY:See Below FAMILY HISTORY:See Below SOCIAL HISTORY:See Below HOME MEDICATIONS:See Below ALLERGIES:See Below VITALS:See Below PHYSICAL EXAMINATION: GENERAL: unwell appearing, well nourished, no distress, non-toxic, BMI 43 EYE EXAM: normal conjunctiva, PERRL and EOM's grossly intact OROPHARYNX: no exudate, no erythema, lips, buccal mucosa, and tongue normal and mucous membranes are dry NECK: supple, no nuchal rigidity, no adenopathy, non-tender LUNGS: Clear but decreased to auscultation. Normal chest wall mechanics, no w/r/r HEART: no murmurs, S1 normal and S2 normal ABDOMEN: abdomen soft, non-tender, normo-active bowel sounds, no masses, no rebound or guarding. BACK: Back is symmetrical on inspection and there is no deformity, no midline tenderness, no CVA tenderness. SKIN: no rashes, petechiae, orbruising UPPER EXTREMITIES: upper extremities are grossly normal. FROM, nml pulses b/l. LOWER EXTREMITIES: No pitting edema. FROM, nml pulses b/l. NEURO EXAM: Somnolent, responds to painful stimuli, opens eyes to painful stimuli cranial nerves II-XII grossly intact, no facial droop Vital Signs: reviewed and remarkable Differential Diagnosis: Hypercapnia, ICH, CVA, metabolic encephalopathy, hypoxia, CHF, ACS, dysrhythmia, SAM, electrolyte abnormality, sepsis, as well as others were MEDICAL DECISION MAKING: This is a 77-year-old female brought in by EMS from local facility due to concern for confusion and hypoxia. Patient somnolent and unresponsive to painful stimuli on arrival. Labs drawn and sent, IV established, EKG and chest x-ray obtained at bedside and interpreted by me and patient monitored on telemetry. While labs are being drawn and IV established I contacted RT to initiate BiPAP and obtain a bedside ABG while I contacted family to discuss her condition as well as discuss possible need for additional intubation. Patient slowly began to show evidence of improvement while on BiPAP. Patient with only mild hypercapnia noted. Chest x-ray suggestive of possible pneumonia which patient has had previously. She was started on IV antibiotics, however vancomycin was held as patient would need dialysis additionally. I did contact her manufacturing weaver Dr. Busby to discuss her current condition. Patient continued to show improvement while on BiPAP. Leukocytosis noted to be 13, respiratory panel negative. No hyperkalemia or other acute lab abnormality noted. Elevated creatinine stable given chronic kidney disease and need for dialysis. Patient's Pro-Ruben also mildly elevated. Case discussed with hospitalist team for additional evaluation. Patient was given a 250 mL bolus due to some mild hypotension after she fell asleep while on BiPAP. Blood pressure did improve and remained stable throughout the rest of her stay in the ER prior to transfer to the ICU for hemodialysis. I suspect patient's altered mental status secondary to metabolic encephalopathy and perhaps mild hypercapnia additionally. CT head did not reveal any other acute intracranial pathology. Patient's updated additionally at bedside and verbalized understanding. Consultation(s): 1048: Discussed with Dr. Busby, nephrology. Will plan on bedside dialysis once room is assigned. 1156: Discussed with Deric Pope hospitalist team, for additional evaluation. ER Treatment Provided: See below 0985: Extensive conversation with , Wesley, via phone. He states to his knowledge patient has not missed any dialysis treatments. States Dr. Busby is her manufacturing weaver. He is not aware of her current medication list and does not know if any changes have been made. He states she did have a slight cough in the last 2 days. He states she is supposed to wear CPAP at night however she will sometimes refuse and staff at [facility] he will not force her to wear it. He states she does have a history of COPD as well as several prior episodes of pneumonia. She does not wear oxygen during the day. He states they called him this morning to tell him they were sending him to the emergency room they had also noted a temperature of 100. He states she does have a history of MRSA. We did discuss interventions such as intubation and resuscitation. He states that this time she is a full code. 0945: Patient now opening eyes to voice. FiO2 reduced on BiPAP based on ABG from RT. 1022: Patient opening eyes spontaneously, vital signs stable, spontaneous movement and reaching for bed rails noted. 1134: Patient open in talking with who is now at bedside. Patient denies any pain. She does not recall arriving to the emergency room. Diagnostics Interpreted By Me: -ECG: Normal sinus at 62, normal axis, normal intervals, no acute ST/T wave changes -Cardiac Monitoring: An order was placed for continuous cardiac monitoring. The monitor shows a rate of 68 with normal sinus rhythm. -Laboratory studies: As stated above and show below. -Imaging studies: X-ray Chest: A single view study of the chest was reviewed and was negative for cardiomegaly, focal infiltrate, effusion, pulmonary edema, or wide mediastinum. Question of early infiltrate versus evolving pulmonary edema Triage Nursing Note Reviewed Prior/Outside Records Reviewed Critical Care: Critical care of 55 min performed to assess and manage high likelihood of life- threatening altered mental status and acute respiratory failure, involving labs and imaging performed with assessment to evaluate ams and acute respiratory failure diagnosis with frequent reassessment. This time includes bedside time, treatment discussions with patient/family/consultants, documentation time and excludes procedure time. Past Med/Surg History Medical History Elevated troponin I level Hypotension End stage chronic kidney disease AV fistula R arm Limb alert care status R arm History of recent hospitalization d/c 09/09/22>per medical record, pt sent to ER at [facility] following dialysis for reddened sores on her buttocks. Admitting dx was enterococcus UTI, decubitus ulcer and sacral cellulitis. Difficult intravenous access Black stools Mobility impaired pt non compliant with hx pt treatments / PT IS IN WHEELCHAIR/TOTAL ASSIST Poor short term memory KOBUK (hard of hearing) COPD (chronic obstructive pulmonary disease) no medications for currently History of stroke 2019- pts spouse poor historian pt denies hx stroke History of anesthesia reaction "hard time waking up" Hx: recurrent pneumonia History of COVID-19 ? early 2021- mild congestion, no hospitalization, no current issues Non-ST elevation GA (NSTEMI) pt spouse not sure/ mild ? remembers something mentioned in hx/ ? details ESRD (end stage renal disease) on dialysis tues, thur & sat (quincy) Aspiration pneumonia HX Morbid obesity Parkinson disease Rheumatoid arthritis ? current status/no meds for Chronic diastolic heart failure EF 50% on 01/2020 echo RACHEL (iron deficiency anemia) Subdural hematoma hx fall 2019 - tx to [facility]/no surgical intervention LBBB (left bundle branch block) RENÉ on CPAP Depression Meniere's disease Generalized anxiety disorder Dyslipidemia Restless leg syndrome Diabetes mellitus, type II hx / NO MEDS Hypothyroidism HTN (hypertension) Surgical History Hx of arteriovenostomy for renal dialysis right arm History of tubal ligation History of carpal tunnel surgery B/L History of orthopedic surgery " bilat heel surgery" H/O sinus surgery Hx of total knee arthroplasty B/L Family History Other AAA (abdominal aortic aneurysm) Diabetes Family history non-contributory Hypertension Myotonic dystrophy Social History Smoking Status: Former smoker Tobacco Type: Cigarettes Cigarettes Per Day: 0.25ppd; 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; Second Hand Exposure: No; Do You Dip or Chew Tobacco: No; Tobacco Cessation Education Requested by Patient: No Hx Alcohol Use: No Hx Substance Use: No Preferred Language: Sammarinese Communication Ability: Effective Communication Ability Comment: pt sometimes has difficulty understanding things, is POA [place] Alarm Inspector Required: No Beliefs That Will Affect Care: None marital status: Current Living Situation: Retirement Current Living Situation Comment: Lives at home with , bed bound Feels Safe at Home: Yes Safety Concerns: Feels Safe At This Time Assistive Devices: Glasses and Hearing Aid - Bilateral Allergies Allergies Allergy/AdvReac Type Severity Reaction Status Date / Time No Known Allergies Allergy Verified 03/05/23 12:17 Home Meds Home Medications Medication Instructions Recorded Confirmed aspirin 81 mg tablet,delayed 162 mg PO QAM 11/15/21 05/23/23 release atorvastatin 80 mg tablet 80 mg PO QPM 11/15/21 05/23/23 carbidopa 25 mg-levodopa 100 mg 1 tab PO TIDM 11/15/21 05/23/23 tablet docusate sodium 100 mg capsule 100 mg PO BID 11/15/21 05/23/23 (Colace) isosorbide mononitrate 30 mg 30 mg PO QPM 11/15/21 05/23/23 tablet,extended release 24 hr levothyroxine 125 mcg tablet 125 mcg PO QAM 11/15/21 05/23/23 lidocaine-prilocaine 2.5 %-2.5 % 1 applic topical DIRECTED PRN 1 11/15/21 05/23/23 topical cream HR PRIOR TO DIALYSIS pregabalin 100 mg capsule 100 mg PO BID 11/15/21 05/23/23 sertraline 100 mg tablet 100 mg PO DAILY 11/15/21 05/23/23 vitamin B complex-vitamin C-folic 1 tab PO QPM 04/16/22 05/23/23 acid 0.8 mg tablet (Nanci-Samuel) pantoprazole 20 mg tablet,delayed 20 mg PO BID 05/23/22 05/23/23 release acetaminophen 325 mg tablet 650 mg PO Q6H PRN Pain 09/05/22 05/23/23 (Tylenol) epinephrine 0.3 mg/0.3 mL 0.3 mg IM DIRECTED PRN Allergic 09/05/22 05/23/23 injection, auto-injector (EpiPen) Reaction hydrocortisone 2.5 % topical cream 1 applic NM DAILY PRN Hemorrhoids 09/05/22 05/23/23 with perineal applicator meclizine 12.5 mg tablet 12.5 mg PO TID PRN Dizziness 09/05/22 05/23/23 melatonin 10 mg tablet 10 mg PO HS 09/05/22 05/23/23 ferric citrate 210 mg iron tablet 210 mg PO TIDM 01/21/23 05/23/23 (Auryxia) fluticasone furoate 200 1 inh inhalation DAILY 01/21/23 05/23/23 mcg-vilanterol 25 mcg/dose inhalation powder (Breo Ellipta) Hemorroid Supp 1 supp NM DIRECTED PRN 03/05/23 05/23/23 Hemorrhoids cholecalciferol (vitamin D3) 125 125 mcg PO DAILY 05/23/23 05/23/23 mcg (5,000 unit) tablet (Vitamin D3) Previous Rx's Medication Instructions Recorded nystatin 100,000 unit/gram topical 1 applic EXT BID #30 grams 09/09/22 powder (Nystop) Results & Data (ED) Vital Signs Vital Signs - 24 hr 05/23/23 09:13 05/23/23 09:24 05/23/23 09:25 Temperature 36.8 C Temperature Source Oral Pulse Rate 63 67 62 Pulse Rate [Left Brachial] Pulse Rate from SpO2 Sensor 64 Pulse Rhythm Regular Pulse Rhythm [Left Brachial] Pulse Strength Normal Pulse Strength [Left Brachial] Respiratory Rate 24 18 Respiratory Effort / Characteristics Non-Labored Respiratory Depth Shallow Respiratory Pattern Regular Blood Pressure 120/83 Blood Pressure [Left Arm] Blood Pressure Mean 95 Blood Pressure Mean [Left Arm] Blood Pressure Position Lying Blood Pressure Position [Left Arm] Pulse Oximetry 95 96 Oxygen Delivery Method Nasal Cannula Oxygen Flow Rate 5 Fraction of Inspired Oxygen Sepsis Recent Fever Within 48 Hours No Sepsis New/Unexplained Change in Mental Status Yes Sepsis Action Taken by Nursing No Action Required 05/23/23 09:25 05/23/23 09:25 05/23/23 09:30 Temperature Temperature Source Pulse Rate Pulse Rate [Left Brachial] Pulse Rate from SpO2 Sensor Pulse Rhythm Pulse Rhythm [Left Brachial] Pulse Strength Pulse Strength [Left Brachial] Respiratory Rate Respiratory Effort / Characteristics Non-Labored Spontaneous Respiratory Depth Shallow Respiratory Pattern Regular Blood Pressure 120/53 L Blood Pressure [Left Arm] Blood Pressure Mean 83 Blood Pressure Mean [Left Arm] Blood Pressure Position Blood Pressure Position [Left Arm] Pulse Oximetry Oxygen Delivery Method Nasal Cannula Nasal Cannula Oxygen Flow Rate 5 5 Fraction of Inspired Oxygen Sepsis Recent Fever Within 48 Hours Sepsis New/Unexplained Change in Mental Status Sepsis Action Taken by Nursing 05/23/23 09:30 05/23/23 09:50 05/23/23 10:00 Temperature Temperature Source Pulse Rate 62 61 66 Pulse Rate [Left Brachial] Pulse Rate from SpO2 Sensor 63 68 Pulse Rhythm Pulse Rhythm [Left Brachial] Pulse Strength Pulse Strength [Left Brachial] Respiratory Rate 15 18 19 Respiratory Effort / Characteristics Non-Labored Spontaneous Respiratory Depth Normal Respiratory Pattern Regular Blood Pressure Blood Pressure [Left Arm] Blood Pressure Mean Blood Pressure Mean [Left Arm] Blood Pressure Position Blood Pressure Position [Left Arm] Pulse Oximetry 97 92 Oxygen Delivery Method Oxygen Flow Rate Fraction of Inspired Oxygen 40 Sepsis Recent Fever Within 48 Hours Sepsis New/Unexplained Change in Mental Status Sepsis Action Taken by Nursing 05/23/23 10:30 05/23/23 10:31 05/23/23 10:31 Temperature Temperature Source Pulse Rate 63 60 Pulse Rate [Left Brachial] Pulse Rate from SpO2 Sensor 43 L 35 L Pulse Rhythm Pulse Rhythm [Left Brachial] Pulse Strength Pulse Strength [Left Brachial] Respiratory Rate 20 18 Respiratory Effort / Characteristics Respiratory Depth Respiratory Pattern Blood Pressure 80/33 L Blood Pressure [Left Arm] Blood Pressure Mean 57 Blood Pressure Mean [Left Arm] Blood Pressure Position Blood Pressure Position [Left Arm] Pulse Oximetry 93 92 Oxygen Delivery Method Oxygen Flow Rate Fraction of Inspired Oxygen Sepsis Recent Fever Within 48 Hours Sepsis New/Unexplained Change in Mental Status Sepsis Action Taken by Nursing 05/23/23 10:33 05/23/23 10:33 05/23/23 10:46 Temperature Temperature Source Pulse Rate 60 Pulse Rate [Left Brachial] Pulse Rate from SpO2 Sensor 39 L Pulse Rhythm Pulse Rhythm [Left Brachial] Pulse Strength Pulse Strength [Left Brachial] Respiratory Rate 18 Respiratory Effort / Characteristics Respiratory Depth Respiratory Pattern Blood Pressure 97/56 L 98/49 L Blood Pressure [Left Arm] Blood Pressure Mean 70 69 Blood Pressure Mean [Left Arm] Blood Pressure Position Blood Pressure Position [Left Arm] Pulse Oximetry 92 Oxygen Delivery Method Oxygen Flow Rate Fraction of Inspired Oxygen Sepsis Recent Fever Within 48 Hours Sepsis New/Unexplained Change in Mental Status Sepsis Action Taken by Nursing 05/23/23 10:46 05/23/23 10:56 05/23/23 11:14 Temperature Temperature Source Pulse Rate 61 Pulse Rate [Left Brachial] Pulse Rate from SpO2 Sensor 52 L 57 L Pulse Rhythm Pulse Rhythm [Left Brachial] Pulse Strength Pulse Strength [Left Brachial] Respiratory Rate 20 18 Respiratory Effort / Characteristics Respiratory Depth Normal Respiratory Pattern Regular Blood Pressure Blood Pressure [Left Arm] 98/49 L Blood Pressure Mean Blood Pressure Mean [Left Arm] 65 Blood Pressure Position Blood Pressure Position [Left Arm] Lying Pulse Oximetry 92 93 91 Oxygen Delivery Method BiPAP Oxygen Flow Rate Fraction of Inspired Oxygen Sepsis Recent Fever Within 48 Hours Sepsis New/Unexplained Change in Mental Status Sepsis Action Taken by Nursing 05/23/23 11:15 05/23/23 11:22 05/23/23 11:22 Temperature Temperature Source Pulse Rate 59 L 49 L Pulse Rate [Left Brachial] Pulse Rate from SpO2 Sensor 37 L Pulse Rhythm Pulse Rhythm [Left Brachial] Pulse Strength Pulse Strength [Left Brachial] Respiratory Rate 18 24 Respiratory Effort / Characteristics Non-Labored Spontaneous Respiratory Depth Normal Respiratory Pattern Regular Blood Pressure 103/41 L Blood Pressure [Left Arm] Blood Pressure Mean 69 Blood Pressure Mean [Left Arm] Blood Pressure Position Blood Pressure Position [Left Arm] Pulse Oximetry 92 95 Oxygen Delivery Method Oxygen Flow Rate Fraction of Inspired Oxygen 26 Sepsis Recent Fever Within 48 Hours Sepsis New/Unexplained Change in Mental Status Sepsis Action Taken by Nursing 05/23/23 11:30 05/23/23 11:31 05/23/23 11:31 Temperature Temperature Source Pulse Rate 79 67 Pulse Rate [Left Brachial] Pulse Rate from SpO2 Sensor 58 L 48 L Pulse Rhythm Pulse Rhythm [Left Brachial] Pulse Strength Pulse Strength [Left Brachial] Respiratory Rate 22 16 Respiratory Effort / Characteristics Respiratory Depth Respiratory Pattern Blood Pressure 104/55 L Blood Pressure [Left Arm] Blood Pressure Mean 75 Blood Pressure Mean [Left Arm] Blood Pressure Position Blood Pressure Position [Left Arm] Pulse Oximetry 93 93 Oxygen Delivery Method Oxygen Flow Rate Fraction of Inspired Oxygen Sepsis Recent Fever Within 48 Hours Sepsis New/Unexplained Change in Mental Status Sepsis Action Taken by Nursing 05/23/23 11:46 05/23/23 11:46 05/23/23 12:00 Temperature Temperature Source Pulse Rate Pulse Rate [Left Brachial] Pulse Rate from SpO2 Sensor 40 L 73 Pulse Rhythm Pulse Rhythm [Left Brachial] Pulse Strength Pulse Strength [Left Brachial] Respiratory Rate 17 17 Respiratory Effort / Characteristics Respiratory Depth Respiratory Pattern Blood Pressure 105/45 L Blood Pressure [Left Arm] Blood Pressure Mean 66 Blood Pressure Mean [Left Arm] Blood Pressure Position Blood Pressure Position [Left Arm] Pulse Oximetry 93 96 Oxygen Delivery Method Oxygen Flow Rate Fraction of Inspired Oxygen Sepsis Recent Fever Within 48 Hours Sepsis New/Unexplained Change in Mental Status Sepsis Action Taken by Nursing 05/23/23 12:01 05/23/23 12:01 05/23/23 12:16 Temperature Temperature Source Pulse Rate Pulse Rate [Left Brachial] Pulse Rate from SpO2 Sensor 72 Pulse Rhythm Pulse Rhythm [Left Brachial] Pulse Strength Pulse Strength [Left Brachial] Respiratory Rate 17 Respiratory Effort / Characteristics Respiratory Depth Respiratory Pattern Blood Pressure 125/49 L 93/58 L Blood Pressure [Left Arm] Blood Pressure Mean 75 63 Blood Pressure Mean [Left Arm] Blood Pressure Position Blood Pressure Position [Left Arm] Pulse Oximetry 97 Oxygen Delivery Method Oxygen Flow Rate Fraction of Inspired Oxygen Sepsis Recent Fever Within 48 Hours Sepsis New/Unexplained Change in Mental Status Sepsis Action Taken by Nursing 05/23/23 12:16 05/23/23 12:29 05/23/23 12:30 Temperature Temperature Source Pulse Rate 59 L 57 L Pulse Rate [Left Brachial] 57 L Pulse Rate from SpO2 Sensor 37 L 42 L Pulse Rhythm Pulse Rhythm [Left Brachial] Regular Pulse Strength Pulse Strength [Left Brachial] Normal Respiratory Rate 16 19 17 Respiratory Effort / Characteristics Non-Labored Respiratory Depth Shallow Respiratory Pattern Regular Blood Pressure Blood Pressure [Left Arm] 89/46 L Blood Pressure Mean Blood Pressure Mean [Left Arm] 60 Blood Pressure Position Blood Pressure Position [Left Arm] Lying Pulse Oximetry 90 90 90 Oxygen Delivery Method BiPAP Oxygen Flow Rate Fraction of Inspired Oxygen Sepsis Recent Fever Within 48 Hours Sepsis New/Unexplained Change in Mental Status Sepsis Action Taken by Nursing 05/23/23 12:31 05/23/23 12:31 05/23/23 12:42 Temperature Temperature Source Pulse Rate 55 L 54 L Pulse Rate [Left Brachial] Pulse Rate from SpO2 Sensor 33 L Pulse Rhythm Pulse Rhythm [Left Brachial] Pulse Strength Pulse Strength [Left Brachial] Respiratory Rate 16 Respiratory Effort / Characteristics Respiratory Depth Respiratory Pattern Blood Pressure 89/46 L Blood Pressure [Left Arm] Blood Pressure Mean 64 Blood Pressure Mean [Left Arm] Blood Pressure Position Blood Pressure Position [Left Arm] Pulse Oximetry 90 Oxygen Delivery Method Oxygen Flow Rate Fraction of Inspired Oxygen Sepsis Recent Fever Within 48 Hours Sepsis New/Unexplained Change in Mental Status Sepsis Action Taken by Nursing 05/23/23 12:46 05/23/23 12:46 05/23/23 13:00 Temperature Temperature Source Pulse Rate 51 L Pulse Rate [Left Brachial] Pulse Rate from SpO2 Sensor 46 L Pulse Rhythm Pulse Rhythm [Left Brachial] Pulse Strength Pulse Strength [Left Brachial] Respiratory Rate 18 Respiratory Effort / Characteristics Respiratory Depth Respiratory Pattern Blood Pressure 102/41 L 101/44 L Blood Pressure [Left Arm] Blood Pressure Mean 62 69 Blood Pressure Mean [Left Arm] Blood Pressure Position Blood Pressure Position [Left Arm] Pulse Oximetry 91 Oxygen Delivery Method Oxygen Flow Rate Fraction of Inspired Oxygen Sepsis Recent Fever Within 48 Hours Sepsis New/Unexplained Change in Mental Status Sepsis Action Taken by Nursing 05/23/23 13:00 Temperature Temperature Source Pulse Rate 48 L Pulse Rate [Left Brachial] Pulse Rate from SpO2 Sensor 53 L Pulse Rhythm Pulse Rhythm [Left Brachial] Pulse Strength Pulse Strength [Left Brachial] Respiratory Rate 25 H Respiratory Effort / Characteristics Respiratory Depth Respiratory Pattern Blood Pressure Blood Pressure [Left Arm] Blood Pressure Mean Blood Pressure Mean [Left Arm] Blood Pressure Position Blood Pressure Position [Left Arm] Pulse Oximetry 90 Oxygen Delivery Method Oxygen Flow Rate Fraction of Inspired Oxygen Sepsis Recent Fever Within 48 Hours Sepsis New/Unexplained Change in Mental Status Sepsis Action Taken by Nursing Laboratory Data 05/23/23 09:31 05/23/23 09:30 Lab Results 05/23/23 05/23/23 05/23/23 Range/Units 09:21 09:30 09:31 WBC 13.12 H (4.8-10.8) K/ul RBC 4.65 (4.20-5.40) M/uL Hgb 13.5 (12.0-16.0) g/dl POC Hgb (12.0-16.0) g/dl Hct 41.2 (37.0-47.0) % POC Hct (37-47) % MCV 88.6 (80.0-100.0) fL MCH 29.0 (25.0-34.0) pg MCHC 32.8 (32.0-36.0) g/dL RDW Std Deviation 53.3 H (36.4-46.3) fL RDW Coeff of Bhavin 16.6 H (11.5-14.5) % Plt Count 178 (130-400) K/uL MPV 12.1 (9.4-12.4) fL Immature Gran % (Auto) 0.8 % Neut % (Auto) 76.5 % Lymph % (Auto) 7.5 % [place] % (Auto) 10.7 % Eos % (Auto) 4.0 % Baso % (Auto) 0.5 % Neut # (Auto) 10.03 H (1.40-6.50) K/uL Lymph # (Auto) 0.98 L (1.20-3.40) K/uL [place] # (Auto) 1.41 H (0.11-0.59) K/uL Eos # (Auto) 0.53 H (0.00-0.50) K/uL Baso # (Auto) 0.06 (0.00-0.20) K/uL Immature Gran # (Auto) 0.11 (0.01-0.20) K/uL PT 10.0 (9.0-12.0) Seconds INR 0.9 (0.9-1.1) POC pH (7.35-7.45) POC pCO2 (35-46) mmHg POC pO2 (80-95) mmHg POC HCO3 (19-24) ben/L POC Total CO2 (24-31) mmol/L POC Base Excess (-9-1.8) ben/L POC ABG O2 Sat (90-95) % POC Sodium (135-144) mmol/L Sodium 138 (136-145) mmol/L POC Potassium (3.3-5.0) mmol/L Potassium 3.9 (3.5-5.1) mmol/L Chloride 98 (98-107) mmol/L Carbon Dioxide 30 (21-32) mmol/L Anion Gap 10 (3-11) BUN 34 H (6-23) mg/dl Creatinine 6.70 H* (0.6-1.2) mg/dl Est Cr Clr Drug Dosing 8.0 ml/min Est GFR ( Amer) 6.4 ml/min Est GFR (Non-Af Amer) 5.5 ml/min BUN/Creatinine Ratio 5.1 L (10-20) Glucose 124 H (70-99(Fasting)) mg/dl POC Glucose 112 H (70-99) mg/dl Lactate (0.4-2.0) mmol/L Calcium 9.2 (8.6-10.3) mg/dl Phosphorus 4.4 (2.5-4.9) mg/dl Magnesium 2.1 (1.7-2.4) mg/dl Total Bilirubin 0.3 (0.2-1.0) mg/dl AST 20 (13-39) U/L ALT 8 (7-52) U/L Alkaline Phosphatase 83 (34-104) U/L Total Protein 7.1 (6.0-8.3) gm/dl Albumin 3.8 (3.4-5.0) gm/dl Globulin 3.3 (2.5-4.0) gm/dl Albumin/Globulin Ratio 1.2 (0.9-2) Lipase 15 (11-82) U/L Procalcitonin (0-0.5) ng/ml TSH 2.086 (0.300-4.500) uIu/ml Urine Color Urine Appearance (Clear) Urine pH (4.5-7.5) Ur Specific [place] (1.000-1.030) Urine Protein (Negative) Urine Glucose (UA) (Negative) Urine Ketones (Negative) Urine Blood (Negative) Urine Nitrite (Negative) Urine Bilirubin (Negative) Urine Urobilinogen (Negative) Ur Leukocyte Esterase (Negative) Urine WBC (Auto) (0-5) /hpf Urine RBC (Auto) (0-4) /hpf U Hyaline Cast (Auto) (0-5) /lpf U Epithel Cells (Auto) (0-5) /lpf Urine Bacteria (Auto) (Negative) Nasal Screen MRSA (PCR) (Negative) Adenovirus (PCR) (NotDetected) B. pertussis DNA (PCR) (NotDetected) B.parapertussis DNA PCR (NotDetected) C. pneumoniae DNA (PCR) (NotDetected) Coronavirus OC43 (PCR) (NotDetected) Coronavirus HKU1 (PCR) (NotDetected) Coronavirus 229E (PCR) (NotDetected) SARS-CoV-2 (PCR) (NotDetected) Coronavirus NL63 (PCR) (NotDetected) Human Metapneumovir PCR (NotDetected) Influenza Type A (PCR) (NotDetected) Influenza Type B (PCR) (NotDetected) M. pneumoniae (PCR) (NotDetected) Parainfluenza 1 (PCR) (NotDetected) Parainfluenza 2 (PCR) (NotDetected) Parainfluenza 3 (PCR) (NotDetected) Parainfluenza 4 (PCR) (NotDetected) RSV (PCR) (NotDetected) Entero/Rhino (PCR) (NotDetected) 05/23/23 05/23/23 05/23/23 Range/Units 09:44 09:45 09:50 WBC (4.8-10.8) K/ul RBC (4.20-5.40) M/uL Hgb (12.0-16.0) g/dl POC Hgb (12.0-16.0) g/dl Hct (37.0-47.0) % POC Hct (37-47) % MCV (80.0-100.0) fL MCH (25.0-34.0) pg MCHC (32.0-36.0) g/dL RDW Std Deviation (36.4-46.3) fL RDW Coeff of Bhavin (11.5-14.5) % Plt Count (130-400) K/uL MPV (9.4-12.4) fL Immature Gran % (Auto) % Neut % (Auto) % Lymph % (Auto) % [place] % (Auto) % Eos % (Auto) % Baso % (Auto) % Neut # (Auto) (1.40-6.50) K/uL Lymph # (Auto) (1.20-3.40) K/uL [place] # (Auto) (0.11-0.59) K/uL Eos # (Auto) (0.00-0.50) K/uL Baso # (Auto) (0.00-0.20) K/uL Immature Gran # (Auto) (0.01-0.20) K/uL PT (9.0-12.0) Seconds INR (0.9-1.1) POC pH (7.35-7.45) POC pCO2 (35-46) mmHg POC pO2 (80-95) mmHg POC HCO3 (19-24) ben/L POC Total CO2 (24-31) mmol/L POC Base Excess (-9-1.8) ben/L POC ABG O2 Sat (90-95) % POC Sodium (135-144) mmol/L Sodium (136-145) mmol/L POC Potassium (3.3-5.0) mmol/L Potassium (3.5-5.1) mmol/L Chloride (98-107) mmol/L Carbon Dioxide (21-32) mmol/L Anion Gap (3-11) BUN (6-23) mg/dl Creatinine (0.6-1.2) mg/dl Est Cr Clr Drug Dosing ml/min Est GFR ( Amer) ml/min Est GFR (Non-Af Amer) ml/min BUN/Creatinine Ratio (10-20) Glucose (70-99(Fasting)) mg/dl POC Glucose (70-99) mg/dl Lactate 2.0 (0.4-2.0) mmol/L Calcium (8.6-10.3) mg/dl Phosphorus (2.5-4.9) mg/dl Magnesium (1.7-2.4) mg/dl Total Bilirubin (0.2-1.0) mg/dl AST (13-39) U/L ALT (7-52) U/L Alkaline Phosphatase (34-104) U/L Total Protein (6.0-8.3) gm/dl Albumin (3.4-5.0) gm/dl Globulin (2.5-4.0) gm/dl Albumin/Globulin Ratio (0.9-2) Lipase (11-82) U/L Procalcitonin 0.61 H (0-0.5) ng/ml TSH (0.300-4.500) uIu/ml Urine Color Urine Appearance (Clear) Urine pH (4.5-7.5) Ur Specific [place] (1.000-1.030) Urine Protein (Negative) Urine Glucose (UA) (Negative) Urine Ketones (Negative) Urine Blood (Negative) Urine Nitrite (Negative) Urine Bilirubin (Negative) Urine Urobilinogen (Negative) Ur Leukocyte Esterase (Negative) Urine WBC (Auto) (0-5) /hpf Urine RBC (Auto) (0-4) /hpf U Hyaline Cast (Auto) (0-5) /lpf U Epithel Cells (Auto) (0-5) /lpf Urine Bacteria (Auto) (Negative) Nasal Screen MRSA (PCR) (Negative) Adenovirus (PCR) Not Detected (NotDetected) B. pertussis DNA (PCR) Not Detected (NotDetected) B.parapertussis DNA PCR Not Detected (NotDetected) C. pneumoniae DNA (PCR) Not Detected (NotDetected) Coronavirus OC43 (PCR) Not Detected (NotDetected) Coronavirus HKU1 (PCR) Not Detected (NotDetected) Coronavirus 229E (PCR) Not Detected (NotDetected) SARS-CoV-2 (PCR) Not Detected (NotDetected) Coronavirus NL63 (PCR) Not Detected (NotDetected) Human Metapneumovir PCR Not Detected (NotDetected) Influenza Type A (PCR) Not Detected (NotDetected) Influenza Type B (PCR) Not Detected (NotDetected) M. pneumoniae (PCR) Not Detected (NotDetected) Parainfluenza 1 (PCR) Not Detected (NotDetected) Parainfluenza 2 (PCR) Not Detected (NotDetected) Parainfluenza 3 (PCR) Not Detected (NotDetected) Parainfluenza 4 (PCR) Not Detected (NotDetected) RSV (PCR) Not Detected (NotDetected) Entero/Rhino (PCR) Not Detected (NotDetected) 05/23/23 05/23/23 05/23/23 Range/Units 09:54 11:55 12:15 WBC (4.8-10.8) K/ul RBC (4.20-5.40) M/uL Hgb (12.0-16.0) g/dl POC Hgb 13.9 (12.0-16.0) g/dl Hct (37.0-47.0) % POC Hct 41 (37-47) % MCV (80.0-100.0) fL MCH (25.0-34.0) pg MCHC (32.0-36.0) g/dL RDW Std Deviation (36.4-46.3) fL RDW Coeff of Bhavin (11.5-14.5) % Plt Count (130-400) K/uL MPV (9.4-12.4) fL Immature Gran % (Auto) % Neut % (Auto) % Lymph % (Auto) % [place] % (Auto) % Eos % (Auto) % Baso % (Auto) % Neut # (Auto) (1.40-6.50) K/uL Lymph # (Auto) (1.20-3.40) K/uL [place] # (Auto) (0.11-0.59) K/uL Eos # (Auto) (0.00-0.50) K/uL Baso # (Auto) (0.00-0.20) K/uL Immature Gran # (Auto) (0.01-0.20) K/uL PT (9.0-12.0) Seconds INR (0.9-1.1) POC pH 7.36 (7.35-7.45) POC pCO2 52 H (35-46) mmHg POC pO2 105 H (80-95) mmHg POC HCO3 30 H (19-24) ben/L POC Total CO2 31 (24-31) mmol/L POC Base Excess 4.0 H (-9-1.8) ben/L POC ABG O2 Sat 98.0 H (90-95) % POC Sodium 137 (135-144) mmol/L Sodium (136-145) mmol/L POC Potassium 3.8 (3.3-5.0) mmol/L Potassium (3.5-5.1) mmol/L Chloride (98-107) mmol/L Carbon Dioxide (21-32) mmol/L Anion Gap (3-11) BUN (6-23) mg/dl Creatinine (0.6-1.2) mg/dl Est Cr Clr Drug Dosing ml/min Est GFR ( Amer) ml/min Est GFR (Non-Af Amer) ml/min BUN/Creatinine Ratio (10-20) Glucose (70-99(Fasting)) mg/dl POC Glucose (70-99) mg/dl Lactate (0.4-2.0) mmol/L Calcium (8.6-10.3) mg/dl Phosphorus (2.5-4.9) mg/dl Magnesium (1.7-2.4) mg/dl Total Bilirubin (0.2-1.0) mg/dl AST (13-39) U/L ALT (7-52) U/L Alkaline Phosphatase (34-104) U/L Total Protein (6.0-8.3) gm/dl Albumin (3.4-5.0) gm/dl Globulin (2.5-4.0) gm/dl Albumin/Globulin Ratio (0.9-2) Lipase (11-82) U/L Procalcitonin (0-0.5) ng/ml TSH (0.300-4.500) uIu/ml Urine Color Dark Yellow Urine Appearance Cloudy A (Clear) Urine pH 7.5 (4.5-7.5) Ur Specific [place] 1.013 (1.000-1.030) Urine Protein 2+ H (Negative) Urine Glucose (UA) Negative (Negative) Urine Ketones Negative (Negative) Urine Blood 3+ H (Negative) Urine Nitrite Negative (Negative) Urine Bilirubin Negative (Negative) Urine Urobilinogen Negative (Negative) Ur Leukocyte Esterase Trace H (Negative) Urine WBC (Auto) 1-5 (0-5) /hpf Urine RBC (Auto) >30 H (0-4) /hpf U Hyaline Cast (Auto) 1-5 (0-5) /lpf U Epithel Cells (Auto) >30 H (0-5) /lpf Urine Bacteria (Auto) Negative (Negative) Nasal Screen MRSA (PCR) Positive A (Negative) Adenovirus (PCR) (NotDetected) B. pertussis DNA (PCR) (NotDetected) B.parapertussis DNA PCR (NotDetected) C. pneumoniae DNA (PCR) (NotDetected) Coronavirus OC43 (PCR) (NotDetected) Coronavirus HKU1 (PCR) (NotDetected) Coronavirus 229E (PCR) (NotDetected) SARS-CoV-2 (PCR) (NotDetected) Coronavirus NL63 (PCR) (NotDetected) Human Metapneumovir PCR (NotDetected) Influenza Type A (PCR) (NotDetected) Influenza Type B (PCR) (NotDetected) M. pneumoniae (PCR) (NotDetected) Parainfluenza 1 (PCR) (NotDetected) Parainfluenza 2 (PCR) (NotDetected) Parainfluenza 3 (PCR) (NotDetected) Parainfluenza 4 (PCR) (NotDetected) RSV (PCR) (NotDetected) Entero/Rhino (PCR) (NotDetected) Administered Medications Aspirin (Aspirin 81 Mg Ectab) [facility] [place] Stop: 06/22/23 14:59 Last Admin: 05/23/23 15:52 Dose: 162 mg Documented By: ALIA Carbidopa/Levodopa (Carbidopa/Levodopa 25/100mg Tab) 1 tab PO TIDM [facility] Stop: 06/22/23 16:59 Last Admin: 05/23/23 16:36 Dose: 1 tab Documented By: ALIA Phenylephrine HCl (Phenylephrine/Nss) 25 mg in 250 mls @ 30.06 mls/hr IV .[id number] [facility]; Protocol Stop: 06/22/23 14:44 Last Titration: 05/23/23 15:45 Dose: 0 mcg/kg/min, 0 mls/hr Documented By: ALIA Co-signed By: CC Admin: 05/23/23 15:00 Dose: 0.5 mcg/kg/min, 30.1 mls/hr Documented By: ALIA Co-signed By: NEIL Midodrine (Midodrine Hcl 10 Mg Tab) 10 mg PO TID@0800,1200,1700 [facility] Stop: 06/22/23 16:59 Last Admin: 05/23/23 18:01 Dose: Not Given Documented By: Admin: 05/23/23 15:03 Dose: 10 mg Documented By: ALIA Huffcellgustavo (Icu Protocol For Hyperglycemia) 1 each N/A ACHS [place] Stop: 05/25/23 16:29 Last Admin: 05/23/23 15:52 Dose: 1 each Documented By: ALIA Sorenson (Ferric Citrate [Auryxia] 210 Mg Iron Tablet - Order Awaiting Action) 1 each N/A QS [place] Stop: 06/22/23 15:59 Last Admin: 05/23/23 15:52 Dose: 1 each Documented By: ALIA Discontinued Medications Cefepime HCl (Maxipime) 2,000 mg in 20 mls @ 5 mls/min IV NOW STA; Protocol Stop: 05/23/23 10:22 Last Admin: 05/23/23 10:55 Dose: 5 mls/min Documented By: Admin: 05/23/23 10:46 Dose: 5 mls/min Documented By: CRUZ Sodium Chloride (Nss) 250 mls @ 999 mls/hr IV .Q16M ONE Stop: 05/23/23 11:05 Last Infusion: 05/23/23 12:51 Dose: Infused Documented By: Admin: 05/23/23 12:25 Dose: 999 mls/hr Documented By: CRUZ Huffcellaneous (Rapid Sequence Induction Bag) Confirm Administered Dose 1 each N/A .STK-MED ONE Stop: 05/23/23 09:57 Last Admin: 05/23/23 12:18 Dose: Not Given Documented By: LIZETH Sorenson (No Heparin In Dialysis) 1 each N/A ONE ONE Stop: 05/23/23 10:53 Last Admin: 05/23/23 15:08 Dose: 1 each Documented By: ALIA Imaging Data Radiologist's Impression: Chest X-Ray 05/23/23 09:31 XR chest 1V portable CLINICAL HISTORY: sob TECHNIQUE: Single frontal radiograph of the chest was obtained. Comparison: Comparison is made to chest radiograph 03/05/2023 FINDINGS: No lines and tubes are seen. Cardiomegaly is noted. Prominence and cephalization of the vasculature is seen. Airspace opacities in the left upper lung and right lower lung. No evidence of pleural effusion or pneumothorax. IMPRESSION: 1. Cardiomegaly and mild pulmonary edema. 2. Airspace opacity in the left upper lung in right lower lung may represent atelectasis, aspiration, and/or pneumonia. ACT 112: Negative or not required by law. Electronically signed by: Gato Nix M.D. 05/23/2023 10:[address] 05/23/23 10:13 CT head/brain wo con CLINICAL HISTORY: 77 years-old Female with ams. Acutely altered mental status TECHNIQUE: Multiple axial CT images of the head were obtained without contrast. A dose lowering technique was utilized adhering to the principles of ALARA. CT DOSE: 625.8 mGy.cm COMPARISON: 06/12/2021. FINDINGS: No acute intracranial hemorrhage, midline shift, intracranial mass, hydrocephalus, territorial ischemia or abnormal extra-axial collection. Involutional changes with chronic microvascular ischemic disease. Cerebral vascular calcifications. The calvarium is intact. Severe mucoperiosteal thickening of the right maxillary and sphenoid sinuses compatible with chronic sinus disease. Trace mastoid effusions. Unremarkable soft tissues and orbits. IMPRESSION: 1. No acute intracranial abnormality or calvarial fracture. 2. Chronic paranasal sinus disease. ACT 112: Negative or not required by law. The above report was generated using voice recognition software. It may contain grammatical, syntax or spelling errors. Electronically signed by: Benito Stiles M.D. 05/23/2023 11:36 AM Discharge Plan Visit Data Chief Complaint: Shortness of Breath/Dyspnea Stated Complaint: SHORTNESS OF BREATH ED Provider: Briseida Hazel Discharge Problem: AMS (altered mental status), Pneumonia, Acute respiratory failure with hypercapnia, CKD (chronic kidney disease) Patient Disposition: Admitted As Inpatient Discharge Instructions Interventions: ED Discharge Assessment Last Done: 05/23/23 14:00
[2023-05-23 10:15] LABS: Basophils # (auto) 0.06 K/uL (0.00-0.20); Basophils % (auto) 0.5 %; Eosinophils # (auto) 0.53 K/uL (0.00-0.50); Hematocrit (blood only) 41.2 % (37.0-47.0); Hemoglobin 13.5 g/dl (12.0-16.0); Immature Granulocytes # (auto) 0.11 K/uL (0.01-0.20); Immature Granulocytes % (auto) 0.8 %; Lymphocytes # (auto) 0.98 K/uL (1.20-3.40); Lymphocytes % (auto) 7.5 %; Mean Corpuscular Hgb Conc 32.8 g/dL (32.0-36.0); Mean Corpuscular Volume 88.6 fL (80.0-100.0); Mean Platelet Volume 12.1 fL (9.4-12.4); Monocytes # (auto) 1.41 K/uL (0.11-0.59); Monocytes % (auto) 10.7 %; Neutrophils # (auto) 10.03 K/uL (1.40-6.50); Neutrophils % (auto) 76.5 %; Platelet Count 178 K/uL (130-400); RDW Coefficient of Variation 16.6 % (11.5-14.5); RDW Standard Deviation 53.3 fL (36.4-46.3); Red Blood Count 4.65 M/uL (4.20-5.40); White Blood Count 13.12 K/ul (4.8-10.8)
--- NOTE | 2023-05-23 10:30 | XRay Report ---
XR chest 1V portable CLINICAL HISTORY: sob TECHNIQUE: Single frontal radiograph of the chest was obtained. Comparison: Comparison is made to chest radiograph 03/05/2023 FINDINGS: No lines and tubes are seen. Cardiomegaly is noted. Prominence and cephalization of the vasculature i s seen. Airspace opacities in the left upper lung and right lower lung. No evidence of pleural effusi on or pneumothorax. IMPRESSION: 1. Cardiomegaly and mild pulmonary edema. 2. Airspace opacity in the left upper lung in right lower lung may represent atelectasis, aspiration , and/or pneumonia. ACT 112: Negative or not required by law. Electronically signed by: Gato Nix M.D. 05/23/2023 10:29 AM
[2023-05-23 10:36] LABS: INR 0.9 (0.9-1.1)
[2023-05-23 10:39] LABS: Albumin Globulin Ratio 1.2 (0.9-2); Albumin Level 3.8 gm/dl (3.4-5.0); BUN Creatinine Ratio 5.1 (10-20); Bilirubin,Total 0.3 mg/dl (0.2-1.0); Calcium 9.2 mg/dl (8.6-10.3); Est GFR (African American) 6.4 ml/min; Est GFR (Non-African American) 5.5 ml/min; Globulin 3.3 gm/dl (2.5-4.0); Magnesium 2.1 mg/dl (1.7-2.4); Phosphorus 4.4 mg/dl (2.5-4.9); Potassium 3.9 mmol/L (3.5-5.1); Total Protein 7.1 gm/dl (6.0-8.3)
[2023-05-23] MEDS: CEFEPIME 2,000 MG/20 ML VIAL IV STA (10:46)
[2023-05-23 10:47] LABS: Thyroid Stimulating Hormone 2.086 uIu/ml (0.300-4.500)
[2023-05-23] MEDS ORDERED: SODIUM CHLORIDE 0.9% 1,000 ML IV PRN (10:52)
[2023-05-23 11:02] LABS: Adenovirus PCR Not Detected (NotDetected); Bordetella parapertussis PCR Not Detected (NotDetected); Bordetella pertussis PCR Not Detected (NotDetected); Chlamydia pneumoniae PCR Not Detected (NotDetected); Coronavirus 229E PCR Not Detected (NotDetected); Coronavirus CoV-2 (COVID19)PCR Not Detected (NotDetected); Coronavirus HKU1 PCR Not Detected (NotDetected); Coronavirus NL63 PCR Not Detected (NotDetected); Coronavirus OC43PCR Not Detected (NotDetected); Human Metapneumovirus PCR Not Detected (NotDetected); Influenza A PCR Not Detected (NotDetected); Influenza B PCR Not Detected (NotDetected); Mycoplasma pneumoniae PCR Not Detected (NotDetected); Parainfluenza Virus 1 PCR Not Detected (NotDetected); Parainfluenza Virus 2 PCR Not Detected (NotDetected); Parainfluenza Virus 3 PCR Not Detected (NotDetected); Parainfluenza Virus 4 PCR Not Detected (NotDetected); Respiratory Syncytial VirusPCR Not Detected (NotDetected); Rhinovirus/Enterovirus PCR Not Detected (NotDetected)
[2023-05-23 11:09] LABS: iSTAT Arterial Blood Gas HCO3 30 meg/L (19-24); iSTAT Arterial Blood Gas pCO2 52 mmHg (35-46); iSTAT Arterial Blood Gas pH 7.36 (7.35-7.45); iSTAT Arterial Blood Gas pO2 105 mmHg (80-95); iSTAT Carbon Dioxide 31 mmol/L (24-31); iSTAT Hematocrit 41 % (37-47); iSTAT Hemoglobin 13.9 g/dl (12.0-16.0); iSTAT Potassium 3.8 mmol/L (3.3-5.0); iSTAT Sodium 137 mmol/L (135-144)
--- NOTE | 2023-05-23 11:38 | CT Scan Report ---
CT head/brain wo con CLINICAL HISTORY: 77 years-old Female with ams. Acutely altered mental status TECHNIQUE: Multiple axial CT images of the head were obtained without contrast. A dose lowering tech nique was utilized adhering to the principles of ALARA. CT DOSE: 625.8 mGy.cm COMPARISON: 06/12/2021. FINDINGS: No acute intracranial hemorrhage, midline shift, intracranial mass, hydrocephalus, territorial ischem ia or abnormal extra-axial collection. Involutional changes with chronic microvascular ischemic disea se. Cerebral vascular calcifications. The calvarium is intact. Severe mucoperiosteal thickening of the right maxillary and sphenoid sinuse s compatible with chronic sinus disease. Trace mastoid effusions. Unremarkable soft tissues and orbit s. IMPRESSION: 1. No acute intracranial abnormality or calvarial fracture. 2. Chronic paranasal sinus disease. ACT 112: Negative or not required by law. The above report was generated using voice recognition software. It may contain grammatical, syntax o r spelling errors. Electronically signed by: Benito Stiles M.D. 05/23/2023 11:36 AM
[2023-05-23] MEDS: RAPID SEQUENCE INDUCTION BAG ONE (12:18)
--- NOTE | 2023-05-23 12:20 | History & Physical Report ---
Date of Service May 23, 2023 Assessment & Plan (1) Acute respiratory failure with hypercapnia: (2) Metabolic encephalopathy: (3) Hypotension: Plan: Acute on chronic HFpEF. ?Possible pneumonia. ?Underlying obesity hypoventilation syndrome WBC: 13, lactate: 2.0, procalcitonin: 0.6. POC ABG: pH 7.36, pCO2: 52, pO2: 105, HCO3: 30 CXR: Cardiomegaly and mild pulmonary edema. Airspace opacity in the left upper lung in right lower lung may represent atelectasis, aspiration, and/or pneumonia. CT head: No acute intracranial findings During ER course patient became hypotensive with BP 89/46 MAP 64. Was given 500 mL NSS bolus with BP up to104/41 In ER given cefepime Spoke with metal window frame maker Dr. Forman as well as supervisor nut processing, Dr. Tobar regarding hypotension and need for HD. Will admit to ICU for possible as needed pressors to support BP so can get HD today Continue BiPAP. Repeat ABG N.p.o. for now on BiPAP Will continue cefepime for now Admit ICU Further management per metal window frame maker (4) Sinus bradycardia: Plan: HR noted 40s-50s in ER Monitor on telemetry (5) End-stage renal disease (ESRD): Plan: On HD Nephrology consult. Dr. Busby aware (6) DM type 2 (diabetes mellitus, type 2): Plan: Diet controlled A1c 4.9 on 02/2023. Of note patient on HD Monitor BSG's (7) Anemia: Plan: Anemia chronic disease. Iron deficiency anemia H/H: 13.5/41. Hgb was 13.8 on 05/14/2023 and 9.6 on 04/01/2023 On iron supplement (8) Parkinson disease: Plan: Plan to continue carbidopa levodopa (9) Hypothyroidism: Plan: TSH: 2.0 Continue levothyroxine (10) RENÉ (obstructive sleep apnea): Plan: Currently on BiPAP. When able to be off BiPAP plan to resume CPAP at bedtime DVT Prophylaxis Heparin SQ Full Code as per discussion with pt's Follows with Dr Villanueva for routine care Pt was seen and care coordinated with Dr Mcclendon. See addendum I spent a total of 83 minutes reviewing notes, outpatient records, labs, medication, coordinating, documenting and providing care for this patient excluding time spent in the performance of separately billed services. History of Present Illness Chief Complaint: AMS, hypoxia Primary Care Provider: Bella Villanueva MD Patient is 77-year-old female with PMH diet-controlled DM II, ESRD on HD, COPD, hypothyroidism, chronic anemia, Parkinson's, LBBB, RENÉ and others listed below presented to ER from [facility] for altered mental status. History obtained from ER staff, outpatient and inpatient chart review. is at bedside and states it is reported patient has not been wanting to use her CPAP at night. Reported patient was noted to be hypoxic last night and was placed on oxygen. It is reported this morning patient was more somnolent and hypoxic so EMS was called. Upon arrival to ER patient somnolent. She was placed on BiPAP and reported to have improvement of mental status and was answering questions. During ER course patient became more somnolent. Still on BiPAP. Allergies Allergy/AdvReac Type Severity Reaction Status Date / Time No Known Allergies Allergy Verified 03/05/23 12:17 Home Medications Medication Instructions Recorded Confirmed Type aspirin 81 mg tablet,delayed 162 mg PO QAM 11/15/21 05/23/23 History release atorvastatin 80 mg tablet 80 mg PO QPM 11/15/21 05/23/23 History carbidopa 25 mg-levodopa 100 mg 1 tab PO TIDM 11/15/21 05/23/23 History tablet docusate sodium 100 mg capsule 100 mg PO BID 11/15/21 05/23/23 History (Colace) isosorbide mononitrate 30 mg 30 mg PO QPM 11/15/21 05/23/23 History tablet,extended release 24 hr levothyroxine 125 mcg tablet 125 mcg PO QAM 11/15/21 05/23/23 History lidocaine-prilocaine 2.5 %-2.5 % 1 applic topical DIRECTED PRN 1 11/15/21 05/23/23 History topical cream HR PRIOR TO DIALYSIS pregabalin 100 mg capsule 100 mg PO BID 11/15/21 05/23/23 History sertraline 100 mg tablet 100 mg PO DAILY 11/15/21 05/23/23 History vitamin B complex-vitamin C-folic 1 tab PO QPM 04/16/22 05/23/23 History acid 0.8 mg tablet (Nanci-Samuel) pantoprazole 20 mg tablet,delayed 20 mg PO BID 05/23/22 05/23/23 History release acetaminophen 325 mg tablet 650 mg PO Q6H PRN Pain 09/05/22 05/23/23 History (Tylenol) epinephrine 0.3 mg/0.3 mL 0.3 mg IM DIRECTED PRN Allergic 09/05/22 05/23/23 History injection, auto-injector (EpiPen) Reaction hydrocortisone 2.5 % topical cream 1 applic MS DAILY PRN Hemorrhoids 09/05/22 05/23/23 History with perineal applicator meclizine 12.5 mg tablet 12.5 mg PO TID PRN Dizziness 09/05/22 05/23/23 History melatonin 10 mg tablet 10 mg PO HS 09/05/22 05/23/23 History nystatin 100,000 unit/gram topical 1 applic EXT BID #30 grams 09/09/22 05/23/23 Rx powder (Nystop) ferric citrate 210 mg iron tablet 210 mg PO TIDM 01/21/23 05/23/23 History (Auryxia) fluticasone furoate 200 1 inh inhalation DAILY 01/21/23 05/23/23 History mcg-vilanterol 25 mcg/dose inhalation powder (Breo Ellipta) Hemorroid Supp 1 supp MS DIRECTED PRN 03/05/23 05/23/23 History Hemorrhoids cholecalciferol (vitamin D3) 125 125 mcg PO DAILY 05/23/23 05/23/23 History mcg (5,000 unit) tablet (Vitamin D3) Past Med/Surg History Medical History Hypothyroidism Hypotension Elevated troponin I level End stage chronic kidney disease AV fistula R arm Limb alert care status R arm History of recent hospitalization d/c 09/09/22>per medical record, pt sent to ER at [facility] following dialysis for reddened sores on her buttocks. Admitting dx was enterococcus UTI, decubitus ulcer and sacral cellulitis. Difficult intravenous access Black stools Mobility impaired pt non compliant with hx pt treatments / PT IS IN WHEELCHAIR/TOTAL ASSIST Poor short term memory KEWEENAW (hard of hearing) COPD (chronic obstructive pulmonary disease) no medications for currently History of stroke 2020- pts spouse poor historian pt denies hx stroke History of anesthesia reaction "hard time waking up" Hx: recurrent pneumonia History of COVID-19 ? early 2021- mild congestion, no hospitalization, no current issues Non-ST elevation AL (NSTEMI) pt spouse not sure/ mild ? remembers something mentioned in hx/ ? details ESRD (end stage renal disease) on dialysis tues, thur & sat ([place]) Aspiration pneumonia HX Morbid obesity Parkinson disease Rheumatoid arthritis ? current status/no meds for Chronic diastolic heart failure EF 50% on 01/2020 echo RACHEL (iron deficiency anemia) Subdural hematoma hx fall 2019 - tx to [facility]/no surgical intervention LBBB (left bundle branch block) RENÉ on CPAP Depression Meniere's disease Generalized anxiety disorder Dyslipidemia Restless leg syndrome Diabetes mellitus, type II hx / NO MEDS HTN (hypertension) Surgical History Hx of arteriovenostomy for renal dialysis right arm History of tubal ligation History of carpal tunnel surgery B/L History of orthopedic surgery " bilat heel surgery" H/O sinus surgery Hx of total knee arthroplasty B/L Family History Other AAA (abdominal aortic aneurysm) Diabetes Family history non-contributory Hypertension Myotonic dystrophy Social History Smoking Status: Former smoker Tobacco Type: Cigarettes Cigarettes Per Day: 0.25ppd; 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; Second 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 Exposure: No; Do You Dip or Chew Tobacco: No; Tobacco Cessation Education Requested by Patient: No Hx Alcohol Use: No Hx Substance Use: No Preferred Language: Lithuanian Communication Ability: Impaired Communication Ability Comment: pt sometimes has difficulty understanding things, 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: No Beliefs That Will Affect Care: None marital status: Current Living Situation: Longterm Current Living Situation Comment: Lives at home with , bed bound Feels Safe at Home: Yes Safety Concerns: Feels Safe At This Time Assistive Devices: CPAP Review of Systems Review of Systems: Unobtainable due to cognitive status Physical Exam Physical Exam: General: +somnolent, obese elderly female Head: normocephalic, atraumatic Eyes: PERRL, conjunctiva non-injected, anicteric ENT: normal inspection external ears, nose, mucous membranes appear moist Neck: supple, trachea midline Lungs: no apparent respiratory distress on bipap, +rales CV: RRR, no significant pretibial edema Abd: normal BS, soft, no apparent tenderness to palpation Ext: no cyanosis, no erythema, no apparent calf tenderness Neuro: Somnolent, awakens with light touch and falls back to sleep Skin: warm, dry Results & Data Results & Data Vital Signs (Past 12 Hours) Vital Signs Temp Pulse Resp BP BP Pulse Ox O2 Del Method 05/23/23 10:56 18 98/49 L 93 BiPAP 05/23/23 10:46 61 20 92 05/23/23 10:46 98/49 L 05/23/23 10:33 60 18 92 05/23/23 10:33 97/56 L 05/23/23 10:31 60 18 92 05/23/23 10:31 80/33 L 05/23/23 10:30 63 20 93 05/23/23 10:00 66 19 92 05/23/23 09:50 61 18 97 05/23/23 09:30 62 15 05/23/23 09:30 120/53 L 05/23/23 09:25 Nasal Cannula 05/23/23 09:25 Nasal Cannula 05/23/23 09:25 36.8 C 62 18 120/83 96 Nasal Cannula 05/23/23 09:24 67 05/23/23 09:13 63 24 95 O2 Flow Rate FiO2 05/23/23 10:56 05/23/23 10:46 05/23/23 10:46 05/23/23 10:33 05/23/23 10:33 05/23/23 10:31 05/23/23 10:31 05/23/23 10:30 05/23/23 10:00 05/23/23 09:50 40 05/23/23 09:30 05/23/23 09:30 05/23/23 09:25 5 05/23/23 09:25 5 05/23/23 09:25 5 05/23/23 09:24 05/23/23 09:13 Laboratory Results Short CBC 05/23/23 Range/Units 09:31 WBC 13.12 H (4.8-10.8) K/ul Hgb 13.5 (12.0-16.0) g/dl Hct 41.2 (37.0-47.0) % Plt Count 178 (130-400) K/uL BMP 05/23/23 09:30 Sodium 138 Potassium 3.9 Chloride 98 Carbon Dioxide 30 BUN 34 H Creatinine 6.70 H* Glucose 124 H Calcium 9.2 Liver Function 05/23/23 Range/Units 09:30 Total Bilirubin 0.3 (0.2-1.0) mg/dl AST 20 (13-39) U/L ALT 8 (7-52) U/L Alkaline Phosphatase 83 (34-104) U/L Albumin 3.8 (3.4-5.0) gm/dl Urine 05/23/23 Range/Units 12:15 Urine Color Dark Yellow Urine Appearance Cloudy A (Clear) Urine pH 7.5 (4.5-7.5) Ur Specific [place] 1.013 (1.000-1.030) Urine Protein 2+ H (Negative) Urine Glucose (UA) Negative (Negative) Diagnostic Findings Chest X-Ray 05/23/23 09:31 XR chest 1V portable CLINICAL HISTORY: sob TECHNIQUE: Single frontal radiograph of the chest was obtained. Comparison: Comparison is made to chest radiograph 03/05/2023 FINDINGS: No lines and tubes are seen. Cardiomegaly is noted. Prominence and cephalization of the vasculature is seen. Airspace opacities in the left upper lung and right lower lung. No evidence of pleural effusion or pneumothorax. IMPRESSION: 1. Cardiomegaly and mild pulmonary edema. 2. Airspace opacity in the left upper lung in right lower lung may represent atelectasis, aspiration, and/or pneumonia. ACT 112: Negative or not required by law. Electronically signed by: Gato Nix M.D. 05/23/2023 10:[address] 05/23/23 10:13 CT head/brain wo con CLINICAL HISTORY: 77 years-old Female with ams. Acutely altered mental status TECHNIQUE: Multiple axial CT images of the head were obtained without contrast. A dose lowering technique was utilized adhering to the principles of ALARA. CT DOSE: 625.8 mGy.cm COMPARISON: 06/12/2021. FINDINGS: No acute intracranial hemorrhage, midline shift, intracranial mass, hydrocephalus, territorial ischemia or abnormal extra-axial collection. Involutional changes with chronic microvascular ischemic disease. Cerebral vascular calcifications. The calvarium is intact. Severe mucoperiosteal thickening of the right maxillary and sphenoid sinuses compatible with chronic sinus disease. Trace mastoid effusions. Unremarkable soft tissues and orbits. IMPRESSION: 1. No acute intracranial abnormality or calvarial fracture. 2. Chronic paranasal sinus disease. ACT 112: Negative or not required by law. The above report was generated using voice recognition software. It may contain grammatical, syntax or spelling errors. Electronically signed by: Benito Stiles M.D. 05/23/2023 11:36 AM ECG Additional Comments: EKG sinus rhythm, rate 62 Supervising Physician Co-Signing Physician Notes delayed entry date of service noted above Attending Addendum: care coordinated with RUBEN Fajardo. please refer to her notes for full details, I agree with her notes patient seen and examined, records reviewed by myself as well diagnoses and plan of care as per RUBEN Mcclendon MD (3) Hypotension Hypotension type: unspecified hypotension type Qualified Code(s): I95.9 - Hypotension, unspecified (7) Anemia Anemia type: unspecified type Qualified Code(s): D64.9 - Anemia, unspecified
[2023-05-23] MEDS: SODIUM CHLORIDE 0.9% 250 ML IV ONE (12:25)
[2023-05-23 12:57] LABS: Appearance Urine Cloudy (Clear); Bacteria Urine Automated Negative (Negative); Bilirubin Urine Negative (Negative); Blood Urine 3+ (Negative); Color Urine Dark Yellow; Epithelial Cell Urine Auto >30 /lpf (0-5); Glucose Urine UA Negative (Negative); Ketones Urine Negative (Negative); Leukocyte Esterase Urine Trace (Negative); Nitrite Urine Negative (Negative); RBC Urine Automated >30 /hpf (0-4); Specific Gravity Urine 1.013 (1.000-1.030); Urobilinogen Urine Negative (Negative); pH Urine 7.5 (4.5-7.5)
[2023-05-23 13:02] LABS: Protein Urine 2+ (Negative)
[2023-05-23 14:10] LABS: iSTAT Arterial Blood Gas HCO3 29 meg/L (19-24); iSTAT Arterial Blood Gas pCO2 51 mmHg (35-46); iSTAT Arterial Blood Gas pH 7.37 (7.35-7.45); iSTAT Arterial Blood Gas pO2 75 mmHg (80-95); iSTAT Carbon Dioxide 31 mmol/L (24-31); iSTAT Hematocrit 39 % (37-47); iSTAT Hemoglobin 13.3 g/dl (12.0-16.0); iSTAT Potassium 3.8 mmol/L (3.3-5.0); iSTAT Sodium 136 mmol/L (135-144)
[2023-05-23] MEDS ORDERED: VANCOMYCIN HCL 1,750 MG in SODIUM CHLORIDE 0.9% 500 ML IV SCH (14:26)
[2023-05-23] MEDS ORDERED: VANCOMYCIN CONSULT ACTIVE PRN (14:26)
[2023-05-23] MEDS ORDERED: STAT IV Infusion **Titration per Protocol STA (14:39)
--- NOTE | 2023-05-23 14:41 | Pharmacy Report ---
Pharmacy PK ABX Note - Date of Service May 23, 2023 - Assessment and Plan Assessment 77 year old F receiving empiric vancomcyin/cefepime for sepsis/resp failure. Pertinent microbiologic data includes: Positive MRSA Nasal Swab, blood cultures pending. Patient is an HD patient, plans to receive dialysis today- vancomycin dose ordered following HD. Will get f/u level in AM d/t uncertain HD plans to assist with dosing. Plan Vancomycin * Loading dose: 2000 mg IV x 1 * Maintenance dose: Dose by Levels * Random level ordered with AM labs 05/23 Pharmacy will continue to follow and will adjust dose/frequency as necessary. Thank you. Pharmacy has transitioned to AUC monitoring for vancomycin. AUC/MOOK is the preferred PK/PD target and is associated with decreased risk of nephrotoxicity compared to traditional trough targets.
--- NOTE | 2023-05-23 14:48 | Critical Care Consultation ---
Date of Consultation May 23, 2023 Assessment & Plan (1) Respiratory failure: (2) AMS (altered mental status): Plan Impression: 77-year-old female with end-stage renal disease on dialysis admitted with altered mental status which appears to be improving. She was mildly hypercarbic on presentation and may have a degree of obesity hypoventilation syndrome however this appears to be improving. Her x-ray does not demonstrate overt fluid overload and her oxygen requirement is not significantly elevated currently. Recommendations: 1. Neurologic: Encephalopathy likely secondary to underlying metabolic disorders. Continue to follow clinically at this point in time. Will see how she responds to dialysis. Continue her carbidopa levodopa. 2. Cardiovascular: Hypotension: Unclear etiology. Will place on midodrine. Will use Sridhar-Synephrine to support with volume removal with dialysis. 3. Pulmonary: Likely obesity hypoventilation syndrome. Review of the patient's prior sleep studies revealed that in July 2019 she had an AHI of 82 with an oxygen saturation milagro of 79% with an optimal CPAP pressure of 12. 2 L/min oxygen bleed was required as well. Will place on nightly CPAP at 12 cm of water with oxygen bleed. She is established with the [facility] sleep medicine clinic and will need to continue to follow with them. 4. ID: Do not see an infectious etiology. The patient was started empirically on antibiotics. These will be discontinued and we will follow the patient clinically. 5. Renal: Management per nephrology. Dialysis today. 6. GI: Diet as tolerated. 7. Heme-onc: No current issues. 8. Endocrine: Glycemic control per protocol. Continue Synthroid. Will see how she responds to dialysis. If blood pressure is stable, can likely transfer to the floor. History of Present Illness Attending Physician: Jacobo Mcclendon MD History of Present Illness Asked by hospitalist to assist in evaluation management this patient with low blood pressure in need of dialysis. History is obtained from discussion with the patient as well as the admitting service and reviewed the electronic medical record. Patient is a 77-year-old female with end-stage renal disease on hemodialysis. She was brought to the emergency room from [facility] due to altered mental status and hypoxemia. Patient reportedly has a history of sleep disordered breathing but is noncompliant with positive airway pressure. She was hypoxemic last evening and placed on supplemental oxygen. This morning she was confused. She arrived in the emergency room somnolent and lethargic and only responsive to painful stimuli. She was placed on BiPAP for period of time. Her blood pressure was low. She received a small fluid bolus. Was requested by nephrology that she be admitted to the intensive care unit to facilitate dialysis as she may require vasopressor supports. I assessed the patient on arrival to the ICU. She is no longer on noninvasive positive pressure ventilation. She is awake and alert and answering questions albeit somewhat slowly. Her blood pressure has improved to systolics greater than 100. Dialysis is currently setting up with plans for 3 L of ultrafiltration. Patient does not report fevers chills night sweats cough sputum production or other pulmonary symptoms. Allergies Allergy/AdvReac Type Severity Reaction Status Date / Time No Known Allergies Allergy Verified 03/05/23 12:17 Home Medications Medication Instructions Recorded Confirmed Type aspirin 81 mg tablet,delayed 162 mg PO QAM 11/15/21 05/23/23 History release atorvastatin 80 mg tablet 80 mg PO QPM 11/15/21 05/23/23 History carbidopa 25 mg-levodopa 100 mg 1 tab PO TIDM 11/15/21 05/23/23 History tablet docusate sodium 100 mg capsule 100 mg PO BID 11/15/21 05/23/23 History (Colace) isosorbide mononitrate 30 mg 30 mg PO QPM 11/15/21 05/23/23 History tablet,extended release 24 hr levothyroxine 125 mcg tablet 125 mcg PO QAM 11/15/21 05/23/23 History lidocaine-prilocaine 2.5 %-2.5 % 1 applic topical DIRECTED PRN 1 11/15/21 05/23/23 History topical cream HR PRIOR TO DIALYSIS pregabalin 100 mg capsule 100 mg PO BID 11/15/21 05/23/23 History sertraline 100 mg tablet 100 mg PO DAILY 11/15/21 05/23/23 History vitamin B complex-vitamin C-folic 1 tab PO QPM 04/16/22 05/23/23 History acid 0.8 mg tablet (Nanci-Samuel) pantoprazole 20 mg tablet,delayed 20 mg PO BID 05/23/22 05/23/23 History release acetaminophen 325 mg tablet 650 mg PO Q6H PRN Pain 09/05/22 05/23/23 History (Tylenol) epinephrine 0.3 mg/0.3 mL 0.3 mg IM DIRECTED PRN Allergic 09/05/22 05/23/23 History injection, auto-injector (EpiPen) Reaction hydrocortisone 2.5 % topical cream 1 applic AK DAILY PRN Hemorrhoids 09/05/22 05/23/23 History with perineal applicator meclizine 12.5 mg tablet 12.5 mg PO TID PRN Dizziness 09/05/22 05/23/23 History melatonin 10 mg tablet 10 mg PO HS 09/05/22 05/23/23 History nystatin 100,000 unit/gram topical 1 applic EXT BID #30 grams 09/09/22 05/23/23 Rx powder (Nystop) ferric citrate 210 mg iron tablet 210 mg PO TIDM 01/21/23 05/23/23 History (Auryxia) fluticasone furoate 200 1 inh inhalation DAILY 01/21/23 05/23/23 History mcg-vilanterol 25 mcg/dose inhalation powder (Breo Ellipta) Hemorroid Supp 1 supp AK DIRECTED PRN 03/05/23 05/23/23 History Hemorrhoids cholecalciferol (vitamin D3) 125 125 mcg PO DAILY 05/23/23 05/23/23 History mcg (5,000 unit) tablet (Vitamin D3) Patient History Medical History Hypotension End stage chronic kidney disease AV fistula R arm Limb alert care status R arm History of recent hospitalization d/c 09/09/22>per medical record, pt sent to ER at [facility] following dialysis for reddened sores on her buttocks. Admitting dx was enterococcus UTI, decubitus ulcer and sacral cellulitis. Difficult intravenous access Black stools Mobility impaired pt non compliant with hx pt treatments / PT IS IN WHEELCHAIR/TOTAL ASSIST Poor short term memory PALA (hard of hearing) COPD (chronic obstructive pulmonary disease) no medications for currently History of stroke 2019- pts spouse poor historian pt denies hx stroke History of anesthesia reaction "hard time waking up" Hx: recurrent pneumonia History of COVID-19 ? early 2021- mild congestion, no hospitalization, no current issues Non-ST elevation VA (NSTEMI) pt spouse not sure/ mild ? remembers something mentioned in hx/ ? details ESRD (end stage renal disease) on dialysis [facility] ([place]) Aspiration pneumonia HX Morbid obesity Parkinson disease Rheumatoid arthritis ? current status/no meds for Chronic diastolic heart failure EF 50% on 01/2020 echo RACHEL (iron deficiency anemia) Subdural hematoma hx fall 2019 - tx to [facility]/no surgical intervention LBBB (left bundle branch block) RENÉ on CPAP Depression Meniere's disease Generalized anxiety disorder Dyslipidemia Restless leg syndrome Diabetes mellitus, type II hx / NO MEDS Hypothyroidism HTN (hypertension) Surgical History Hx of arteriovenostomy for renal dialysis right arm History of tubal ligation History of carpal tunnel surgery B/L History of orthopedic surgery " bilat heel surgery" H/O sinus surgery Hx of total knee arthroplasty B/L Family History Other AAA (abdominal aortic aneurysm) Diabetes Family history non-contributory Hypertension Myotonic dystrophy Social History Smoking Status: Unknown if ever smoked Tobacco Type: Cigarettes Cigarettes Per Day: 0.25ppd; Second Hand Exposure: No; Do You Dip or Chew Tobacco: No; Hx Alcohol Use: No Hx Substance Use: No Preferred Language: Swedish Communication Ability: Impaired Communication Ability Comment: pt sometimes has difficulty understanding things, is POA 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 No additions or deletions Physical Exam Constitutional: WD/WN, vitals as above + obese Neck: trachea midline, no thyromegaly Respiratory: no respiratory distress, no labored breathing, no cough and not tachypneic Auscultation: + crackles; no wheezes Cardiovascular: RRR, no murmur, no edema Gastrointestinal (Abdomen): normal bowel sounds, soft, nontender, no hepatosplenomegaly Musculoskeletal: Extremities: extremities normal to inspection Skin: no rashes, warm and dry Neurologic: Nonfocal exam Lymphatic: no cervical lymphadenopathy Results & Data Results & Data Vital Signs (Past 12 Hours) Vital Signs Temp Pulse Pulse Resp BP BP Pulse Ox 05/23/23 14:30 36.7 C 67 19 96 05/23/23 14:20 36.7 C 57 L 14 94 05/23/23 14:19 36.7 C 58 L 16 94 05/23/23 14:19 95/39 L 05/23/23 14:14 56 L 17 93 05/23/23 14:14 79/49 L 05/23/23 14:10 6 L 95 05/23/23 14:08 95 05/23/23 13:50 50 L 23 91 05/23/23 13:45 44 L 16 92 05/23/23 13:45 104/55 L 05/23/23 13:40 34 L 20 94 05/23/23 13:30 59 L 18 90 05/23/23 13:30 120/50 L 05/23/23 13:29 59 L 18 90 05/23/23 13:15 47 L 20 91 05/23/23 13:15 105/55 L 05/23/23 13:00 48 L 25 H 90 05/23/23 13:00 101/44 L 05/23/23 12:46 51 L 18 91 05/23/23 12:46 102/41 L 05/23/23 12:42 54 L 05/23/23 12:31 55 L 16 90 05/23/23 12:31 89/46 L 05/23/23 12:30 57 L 17 90 05/23/23 12:29 57 L 19 89/46 L 90 05/23/23 12:16 59 L 16 90 05/23/23 12:16 93/58 L 05/23/23 12:01 17 97 05/23/23 12:01 125/49 L 05/23/23 12:00 17 96 05/23/23 11:46 17 93 05/23/23 11:46 105/45 L 05/23/23 11:31 104/55 L 05/23/23 11:31 67 16 93 05/23/23 11:30 79 22 93 05/23/23 11:22 49 L 24 95 05/23/23 11:22 103/41 L 05/23/23 11:15 59 L 18 92 05/23/23 11:14 91 05/23/23 10:56 18 98/49 L 93 05/23/23 10:46 61 20 92 05/23/23 10:46 98/49 L 05/23/23 10:33 60 18 92 05/23/23 10:33 97/56 L 05/23/23 10:31 60 18 92 05/23/23 10:31 80/33 L 05/23/23 10:30 63 20 93 05/23/23 10:00 66 19 92 05/23/23 09:50 61 18 97 05/23/23 09:30 62 15 05/23/23 09:30 120/53 L 05/23/23 09:25 05/23/23 09:25 05/23/23 09:25 36.8 C 62 18 120/83 96 05/23/23 09:24 67 05/23/23 09:13 63 24 95 O2 Del Method O2 Flow Rate FiO2 05/23/23 14:30 05/23/23 14:20 05/23/23 14:19 05/23/23 14:19 05/23/23 14:14 05/23/23 14:14 05/23/23 14:10 05/23/23 14:08 05/23/23 13:50 05/23/23 13:45 05/23/23 13:45 05/23/23 13:40 05/23/23 13:30 05/23/23 13:30 05/23/23 13:29 26 05/23/23 13:15 05/23/23 13:15 05/23/23 13:00 05/23/23 13:00 05/23/23 12:46 05/23/23 12:46 05/23/23 12:42 05/23/23 12:31 05/23/23 12:31 05/23/23 12:30 05/23/23 12:29 BiPAP 05/23/23 12:16 05/23/23 12:16 05/23/23 12:01 05/23/23 12:01 05/23/23 12:00 05/23/23 11:46 05/23/23 11:46 05/23/23 11:31 05/23/23 11:31 05/23/23 11:30 05/23/23 11:22 05/23/23 11:22 05/23/23 11:15 26 05/23/23 11:14 05/23/23 10:56 BiPAP 05/23/23 10:46 05/23/23 10:46 05/23/23 10:33 05/23/23 10:33 05/23/23 10:31 05/23/23 10:31 05/23/23 10:30 05/23/23 10:00 05/23/23 09:50 40 05/23/23 09:30 05/23/23 09:30 05/23/23 09:25 Nasal Cannula 5 05/23/23 09:25 Nasal Cannula 5 05/23/23 09:25 Nasal Cannula 5 05/23/23 09:24 05/23/23 09:13 Critical Care Results & Data Vital Signs (Past 12 Hours) Vital Signs Temp Pulse Pulse Resp BP BP Pulse Ox 05/23/23 14:30 36.7 C 67 19 96 05/23/23 14:20 36.7 C 57 L 14 94 05/23/23 14:19 36.7 C 58 L 16 94 05/23/23 14:19 95/39 L 05/23/23 14:14 56 L 17 93 05/23/23 14:14 79/49 L 05/23/23 14:10 6 L 95 05/23/23 14:08 95 05/23/23 13:50 50 L 23 91 05/23/23 13:45 44 L 16 92 05/23/23 13:45 104/55 L 05/23/23 13:40 34 L 20 94 05/23/23 13:30 59 L 18 90 05/23/23 13:30 120/50 L 05/23/23 13:29 59 L 18 90 05/23/23 13:15 47 L 20 91 05/23/23 13:15 105/55 L 05/23/23 13:00 48 L 25 H 90 05/23/23 13:00 101/44 L 05/23/23 12:46 51 L 18 91 05/23/23 12:46 102/41 L 05/23/23 12:42 54 L 05/23/23 12:31 55 L 16 90 05/23/23 12:31 89/46 L 05/23/23 12:30 57 L 17 90 05/23/23 12:29 57 L 19 89/46 L 90 05/23/23 12:16 59 L 16 90 05/23/23 12:16 93/58 L 05/23/23 12:01 17 97 05/23/23 12:01 125/49 L 05/23/23 12:00 17 96 05/23/23 11:46 17 93 05/23/23 11:46 105/45 L 05/23/23 11:31 104/55 L 05/23/23 11:31 67 16 93 05/23/23 11:30 79 22 93 05/23/23 11:22 49 L 24 95 05/23/23 11:22 103/41 L 05/23/23 11:15 59 L 18 92 05/23/23 11:14 91 05/23/23 10:56 18 98/49 L 93 05/23/23 10:46 61 20 92 05/23/23 10:46 98/49 L 05/23/23 10:33 60 18 92 05/23/23 10:33 97/56 L 05/23/23 10:31 60 18 92 05/23/23 10:31 80/33 L 05/23/23 10:30 63 20 93 05/23/23 10:00 66 19 92 05/23/23 09:50 61 18 97 05/23/23 09:30 62 15 05/23/23 09:30 120/53 L 05/23/23 09:25 05/23/23 09:25 05/23/23 09:25 36.8 C 62 18 120/83 96 05/23/23 09:24 67 05/23/23 09:13 63 24 95 O2 Del Method O2 Flow Rate FiO2 05/23/23 14:30 05/23/23 14:20 05/23/23 14:19 05/23/23 14:19 05/23/23 14:14 05/23/23 14:14 05/23/23 14:10 05/23/23 14:08 05/23/23 13:50 05/23/23 13:45 05/23/23 13:45 05/23/23 13:40 05/23/23 13:30 05/23/23 13:30 05/23/23 13:29 26 05/23/23 13:15 05/23/23 13:15 05/23/23 13:00 05/23/23 13:00 05/23/23 12:46 05/23/23 12:46 05/23/23 12:42 05/23/23 12:31 05/23/23 12:31 05/23/23 12:30 05/23/23 12:29 BiPAP 05/23/23 12:16 05/23/23 12:16 05/23/23 12:01 05/23/23 12:01 05/23/23 12:00 05/23/23 11:46 05/23/23 11:46 05/23/23 11:31 05/23/23 11:31 05/23/23 11:30 05/23/23 11:22 05/23/23 11:22 05/23/23 11:15 26 05/23/23 11:14 05/23/23 10:56 BiPAP 05/23/23 10:46 05/23/23 10:46 05/23/23 10:33 05/23/23 10:33 05/23/23 10:31 05/23/23 10:31 05/23/23 10:30 05/23/23 10:00 05/23/23 09:50 40 05/23/23 09:30 05/23/23 09:30 05/23/23 09:25 Nasal Cannula 5 05/23/23 09:25 Nasal Cannula 5 05/23/23 09:25 Nasal Cannula 5 05/23/23 09:24 05/23/23 09:13 Lab & Micro Results (Past 24 Hours) RBC 4.65 M/uL (4.20-5.40) 05/23/23 WBC 13.12 K/ul (4.8-10.8) H 05/23/23 Hgb 13.5 g/dl (12.0-16.0) 05/23/23 Hct 41.2 % (37.0-47.0) 05/23/23 MCV 88.6 fL (80.0-100.0) 05/23/23 MCH 29.0 pg (25.0-34.0) 05/23/23 MCHC 32.8 g/dL (32.0-36.0) 05/23/23 RDW Standard Deviation 53.3 fL (36.4-46.3) H 05/23/23 RDW Coefficient of Variation 16.6 % (11.5-14.5) H 05/23/23 Plt Count 178 K/uL (130-400) 05/23/23 MPV 12.1 fL (9.4-12.4) 05/23/23 Neutrophils (%) (Auto) 76.5 % 05/23/23 Lymphocytes (%) (Auto) 7.5 % 05/23/23 Monocytes # (Auto) 1.41 K/uL (0.11-0.59) H 05/23/23 Eosinophils # (Auto) 0.53 K/uL (0.00-0.50) H 05/23/23 Immature Granulocyte % (Auto) 0.8 % 05/23/23 Neutrophils # (Auto) 10.03 K/uL (1.40-6.50) H 05/23/23 Lymphocytes # (Auto) 0.98 K/uL (1.20-3.40) L 05/23/23 Monocytes # (Auto) 1.41 K/uL (0.11-0.59) H 05/23/23 Eosinophils # (Auto) 0.53 K/uL (0.00-0.50) H 05/23/23 Basophils # (Auto) 0.06 K/uL (0.00-0.20) 05/23/23 Immature Granulocyte # (Auto) 0.11 K/uL (0.01-0.20) 4 Na 138 mmol/L (136-145) 05/23/23 K 3.9 mmol/L (3.5-5.1) 05/23/23 Cl 98 mmol/L (98-107) 05/23/23 CO2 30 mmol/L (21-32) 05/23/23 Anion Gap 10 (3-11) 05/23/23 BUN 34 mg/dl (6-23) H 05/23/23 Creatinine 6.70 mg/dl (0.6-1.2) H* 05/23/23 Estimated GFR ( Amer) 6.4 ml/min 05/23/23 Estimated GFR (Non-Af Amer) 5.5 ml/min 05/23/23 BUN/Creatinine Ratio 5.1 (10-20) L 05/23/23 Glu 124 mg/dl (70-99(Fasting)) H 05/23/23 Ca 9.2 mg/dl (8.6-10.3) 05/23/23 Phosphorus Level 4.4 mg/dl (2.5-4.9) 05/23/23 Total Bilirubin 0.3 mg/dl (0.2-1.0) 05/23/23 AST 20 U/L (13-39) 05/23/23 ALT 8 U/L (7-52) 05/23/23 Alkaline Phosphatase 83 U/L (34-104) 05/23/23 TP 7.1 gm/dl (6.0-8.3) 05/23/23 Albumin 3.8 gm/dl (3.4-5.0) 05/23/23 Globulin 3.3 gm/dl (2.5-4.0) 05/23/23 Albumin/Globulin Ratio 1.2 (0.9-2) 05/23/23 Mg 2.1 mg/dl (1.7-2.4) 05/23/23 09:30 Calcium Level 9.2 mg/dl (8.6-10.3) 05/23/23 09:30 Prothromb Time International Ratio 0.9 (0.9-1.1) 05/23/23 09:3 1 Diagnostic Findings (Past 24 Hours) Chest X-Ray 05/23/23 09:31 XR chest 1V portable CLINICAL HISTORY: sob TECHNIQUE: Single frontal radiograph of the chest was obtained. Comparison: Comparison is made to chest radiograph 03/05/2023 FINDINGS: No lines and tubes are seen. Cardiomegaly is noted. Prominence and cephalization of the vasculature is seen. Airspace opacities in the left upper lung and right lower lung. No evidence of pleural effusion or pneumothorax. IMPRESSION: 1. Cardiomegaly and mild pulmonary edema. 2. Airspace opacity in the left upper lung in right lower lung may represent atelectasis, aspiration, and/or pneumonia. ACT 112: Negative or not required by law. Electronically signed by: Gato Nix M.D. 05/23/2023 10:[address] 05/23/23 10:13 CT head/brain wo con CLINICAL HISTORY: 77 years-old Female with ams. Acutely altered mental status TECHNIQUE: Multiple axial CT images of the head were obtained without contrast. A dose lowering technique was utilized adhering to the principles of ALARA. CT DOSE: 625.8 mGy.cm COMPARISON: 06/12/2021. FINDINGS: No acute intracranial hemorrhage, midline shift, intracranial mass, hydrocephalus, territorial ischemia or abnormal extra-axial collection. Involutional changes with chronic microvascular ischemic disease. Cerebral vascular calcifications. The calvarium is intact. Severe mucoperiosteal thickening of the right maxillary and sphenoid sinuses compatible with chronic sinus disease. Trace mastoid effusions. Unremarkable soft tissues and orbits. IMPRESSION: 1. No acute intracranial abnormality or calvarial fracture. 2. Chronic paranasal sinus disease. ACT 112: Negative or not required by law. The above report was generated using voice recognition software. It may contain grammatical, syntax or spelling errors. Electronically signed by: Benito Stiles M.D. 05/23/2023 11:36 AM I & O Totals 24 Hours 05/22/23 05/23/23 05/24/23 06:59 06:59 06:59 Intake Total 250 / 250 Balance 250 / 250 Cumulative 05/23/23 08:51 thru 05/23/23 14:26 Intake Total 250 Balance 250 RT Ventilator Mngmt (Last Documented) Ventilator Ordered Settings Respiratory Rate 19 05/23/23 14:30 Fraction of Inspired Oxygen 05/23/23 13 :29 Ventilator - PT Measurements Respiratory Rate 19 Coding Level of Care Code 00533 IN/OBS CONSULT LVL 5,80M Diagnoses Respiratory failure J96.01 Chronicity: acute Respiratory failure complication: hypoxia AMS (altered mental status) R41.82 (1) Respiratory failure Chronicity: acute Respiratory failure complication: hypoxia Qualified Code(s): J96.01 - Acute respiratory failure with hypoxia
[2023-05-23] MEDS ORDERED: HYDROCORTISONE HC 2.5% CRM 30GM TUBE EXT PRN (14:52)
[2023-05-23] MEDS: PHENYLEPHRINE/NSS 25 MG/250 ML BAG IV SCH (15:00)
[2023-05-23] MEDS: MIDODRINE HCL 10 MG TAB PO SCH (15:03)
[2023-05-23] MEDS: ASPIRIN 81 MG ECTAB PO SCH (15:52)
[2023-05-23] MEDS: ICU Protocol for HYPERglycemia SCH (15:52)
[2023-05-23] MEDS ORDERED: VANCOMYCIN HCL 2,000 MG in SODIUM CHLORIDE 0.9% 500 ML IV ONE (16:00)
--- NOTE | 2023-05-23 16:21 | Nephrology Consultation ---
Date of Consultation May 23, 2023 Assessment & Plan (1) Hemodialysis status: HD today using midodrine and prn pressor to support bp chemisties acceptable; acid base disturbances not severe aggressive uf to optimize respiratory status as tolerated not anemic; no reported avf issues (2) Acute respiratory failure with hypercapnia: improved w/ bipap and dialysis continue supportive care History of Present Illness Reason for Consultation: ESRD on HD Requesting Physician: Dr Colmenares Attending Physician: Jacobo Mcclendon MD History of Present Illness 77 y/o F whom I'm asked to see for dialysis needs was admitted to ICU today after presenting w/ acute hypoxemic respiratory failure needing bipap initially. She was febrile at her halfway this am and was satting in 80s on 4LNC. She was somnolent and responsive only to painful stimuli on presentation to ER. PMH includes ESRD (on in center hemo via AVF under my care Friday at [place]), DM II, hypothyroidism, COPD, anemia, history of rectal bleeding, at least mild cognitive impairment, parkinsons, RENÉ not adherent w/ CPAP, CAD, stroke, GUZMÁN, HL, chronic ambulatory dysfunction/ does not transfer. after several hours on bipap her MS improved, though SBP were soft. She was brought to ICU for dialysis in case of need for pressors. No definite infection has been identified currently. she was given one dose of midodrine and her BP improved dramatically, at least during dialysis treatment. Allergies Allergy/AdvReac Type Severity Reaction Status Date / Time No Known Allergies Allergy Verified 03/05/23 12:17 Home Medications Medication Instructions Recorded Confirmed Type aspirin 81 mg tablet,delayed 162 mg PO QAM 11/15/21 05/23/23 History release atorvastatin 80 mg tablet 80 mg PO QPM 11/15/21 05/23/23 History carbidopa 25 mg-levodopa 100 mg 1 tab PO TIDM 11/15/21 05/23/23 History tablet docusate sodium 100 mg capsule 100 mg PO BID 11/15/21 05/23/23 History (Colace) isosorbide mononitrate 30 mg 30 mg PO QPM 11/15/21 05/23/23 History tablet,extended release 24 hr levothyroxine 125 mcg tablet 125 mcg PO QAM 11/15/21 05/23/23 History lidocaine-prilocaine 2.5 %-2.5 % 1 applic topical DIRECTED PRN 1 11/15/21 05/23/23 History topical cream HR PRIOR TO DIALYSIS pregabalin 100 mg capsule 100 mg PO BID 11/15/21 05/23/23 History sertraline 100 mg tablet 100 mg PO DAILY 11/15/21 05/23/23 History vitamin B complex-vitamin C-folic 1 tab PO QPM 04/16/22 05/23/23 History acid 0.8 mg tablet (Nanci-Samuel) pantoprazole 20 mg tablet,delayed 20 mg PO BID 05/23/22 05/23/23 History release acetaminophen 325 mg tablet 650 mg PO Q6H PRN Pain 09/05/22 05/23/23 History (Tylenol) epinephrine 0.3 mg/0.3 mL 0.3 mg IM DIRECTED PRN Allergic 09/05/22 05/23/23 History injection, auto-injector (EpiPen) Reaction hydrocortisone 2.5 % topical cream 1 applic MT DAILY PRN Hemorrhoids 09/05/22 05/23/23 History with perineal applicator meclizine 12.5 mg tablet 12.5 mg PO TID PRN Dizziness 09/05/22 05/23/23 History melatonin 10 mg tablet 10 mg PO HS 09/05/22 05/23/23 History nystatin 100,000 unit/gram topical 1 applic EXT BID #30 grams 09/09/22 05/23/23 Rx powder (Nystop) ferric citrate 210 mg iron tablet 210 mg PO TIDM 01/21/23 05/23/23 History (Auryxia) fluticasone furoate 200 1 inh inhalation DAILY 01/21/23 05/23/23 History mcg-vilanterol 25 mcg/dose inhalation powder (Breo Ellipta) Hemorroid Supp 1 supp MT DIRECTED PRN 03/05/23 05/23/23 History Hemorrhoids cholecalciferol (vitamin D3) 125 125 mcg PO DAILY 05/23/23 05/23/23 History mcg (5,000 unit) tablet (Vitamin D3) Patient History Medical History Hypothyroidism Hypotension Elevated troponin I level End stage chronic kidney disease AV fistula R arm Limb alert care status R arm History of recent hospitalization d/c 09/09/22>per medical record, pt sent to ER at [facility] following dialysis for reddened sores on her buttocks. Admitting dx was enterococcus UTI, decubitus ulcer and sacral cellulitis. Difficult intravenous access Black stools Mobility impaired pt non compliant with hx pt treatments / PT IS IN WHEELCHAIR/TOTAL ASSIST Poor short term memory B[place] (hard of hearing) COPD (chronic obstructive pulmonary disease) no medications for currently History of stroke 2019- pts spouse poor historian pt denies hx stroke History of anesthesia reaction "hard time waking up" Hx: recurrent pneumonia History of COVID-19 ? early 2021- mild congestion, no hospitalization, no current issues Non-ST elevation HI (NSTEMI) pt spouse not sure/ mild ? remembers something mentioned in hx/ ? details ESRD (end stage renal disease) on dialysis tues, thur & sat ([place]) Aspiration pneumonia HX Morbid obesity Parkinson disease Rheumatoid arthritis ? current status/no meds for Chronic diastolic heart failure EF 50% on 01/2020 echo RACHEL (iron deficiency anemia) Subdural hematoma hx fall 2019 - tx to [facility]/no surgical intervention LBBB (left bundle branch block) RENÉ on CPAP Depression Meniere's disease Generalized anxiety disorder Dyslipidemia Restless leg syndrome Diabetes mellitus, type II hx / NO MEDS HTN (hypertension) Surgical History Hx of arteriovenostomy for renal dialysis right arm History of tubal ligation History of carpal tunnel surgery B/L History of orthopedic surgery " bilat heel surgery" H/O sinus surgery Hx of total knee arthroplasty B/L Family History Other AAA (abdominal aortic aneurysm) Diabetes Family history non-contributory Hypertension Myotonic dystrophy Social History Smoking Status: Former smoker Tobacco Type: Cigarettes Cigarettes Per Day: 0.25ppd; 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; Second Hand Exposure: No; Do You Dip or Chew Tobacco: No; Tobacco Cessation Education Requested by Patient: No Hx Alcohol Use: No Hx Substance Use: No Preferred Language: Tamazight Communication Ability: Effective Communication Ability Comment: pt sometimes has difficulty understanding things, is POA 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 Required: No Beliefs That Will Affect Care: None marital status: Current Living Situation: Senior Living Current Living Situation Comment: Lives at home with , bed bound Feels Safe at Home: Yes Safety Concerns: Feels Safe At This Time Assistive Devices: Glasses and Hearing Aid - Bilateral Review of Systems 2 Review of Systems: All systems reviewed & are unremarkable except as noted in HPI & below Physical Exam 2 Constitutional: well developed, well nourished, + acute distress, + morbidly obese, + frail appearing, cooperative and comfortable Eyes: EOM intact bilaterally ENMT: Ears: + hearing impairment; no external ear abnormality Nose: no external nose abnormality Mouth: + dry oral mucous membranes Neck: no nuchal rigidity Respiratory: normal respiratory effort Auscultation: + diminished lung sounds Cardiovascular: Rate/Rhythm: regular rate (frequent pvcs) and regular rhythm no edema; avf + t/b Gastrointestinal (Abdomen): Inspection/Auscultation: normal bowel sounds P ercussion/Palpation: abdomen soft; abdomen nontender Musculoskeletal: Extremities: strength 5/5 throughout Skin: no rashes, warm and dry Neurologic: caballero, fluent speech, no tremor Psychiatric: Orientation: alert, oriented to person and oriented to place Results & Data Vital Signs (Past 12 Hours) Vital Signs Temp Pulse Pulse Pulse Resp BP BP 05/23/23 16:00 56 L 05/23/23 16:00 56 L 153/60 H 05/23/23 15:30 51 L 139/65 05/23/23 15:00 55 L 104/41 L 05/23/23 14:45 36.8 C 53 L 05/23/23 14:42 05/23/23 14:42 05/23/23 14:30 36.7 C 67 19 05/23/23 14:20 36.7 C 57 L 14 05/23/23 14:19 36.7 C 58 L 16 05/23/23 14:19 95/39 L 05/23/23 14:14 56 L 17 05/23/23 14:14 79/49 L 05/23/23 14:10 6 L 05/23/23 14:08 05/23/23 13:50 50 L 23 05/23/23 13:45 44 L 16 05/23/23 13:45 104/55 L 05/23/23 13:40 34 L 20 05/23/23 13:30 59 L 18 05/23/23 13:30 120/50 L 05/23/23 13:29 59 L 18 05/23/23 13:15 47 L 20 05/23/23 13:15 105/55 L 05/23/23 13:00 48 L 25 H 05/23/23 13:00 101/44 L 05/23/23 12:46 51 L 18 05/23/23 12:46 102/41 L 05/23/23 12:42 54 L 05/23/23 12:31 55 L 16 05/23/23 12:31 89/46 L 05/23/23 12:30 57 L 17 05/23/23 12:29 57 L 19 89/46 L 05/23/23 12:16 59 L 16 05/23/23 12:16 93/58 L 05/23/23 12:01 17 05/23/23 12:01 125/49 L 05/23/23 12:00 17 05/23/23 11:46 17 05/23/23 11:46 105/45 L 05/23/23 11:31 104/55 L 05/23/23 11:31 67 16 05/23/23 11:30 79 22 05/23/23 11:22 49 L 24 05/23/23 11:22 103/41 L 05/23/23 11:15 59 L 18 05/23/23 11:14 05/23/23 10:56 18 98/49 L 05/23/23 10:46 61 20 05/23/23 10:46 98/49 L 05/23/23 10:33 60 18 05/23/23 10:33 97/56 L 05/23/23 10:31 60 18 05/23/23 10:31 80/33 L 05/23/23 10:30 63 20 05/23/23 10:00 66 19 05/23/23 09:50 61 18 05/23/23 09:30 62 15 05/23/23 09:30 120/53 L 05/23/23 09:25 05/23/23 09:25 05/23/23 09:25 36.8 C 62 18 120/83 05/23/23 09:24 67 05/23/23 09:13 63 24 Pulse Ox O2 Del Method O2 Flow Rate FiO2 05/23/23 16:00 05/23/23 16:00 05/23/23 15:30 05/23/23 15:00 05/23/23 14:45 05/23/23 14:42 Oxymask 3 05/23/23 14:42 Oxymask 3 05/23/23 14:30 96 05/23/23 14:20 94 05/23/23 14:19 94 05/23/23 14:19 05/23/23 14:14 93 05/23/23 14:14 05/23/23 14:10 95 05/23/23 14:08 95 05/23/23 13:50 91 05/23/23 13:45 92 05/23/23 13:45 05/23/23 13:40 94 05/23/23 13:30 90 05/23/23 13:30 05/23/23 13:29 90 26 05/23/23 13:15 91 05/23/23 13:15 05/23/23 13:00 90 05/23/23 13:00 05/23/23 12:46 91 05/23/23 12:46 05/23/23 12:42 05/23/23 12:31 90 05/23/23 12:31 05/23/23 12:30 90 05/23/23 12:29 90 BiPAP 05/23/23 12:16 90 05/23/23 12:16 05/23/23 12:01 97 05/23/23 12:01 05/23/23 12:00 96 05/23/23 11:46 93 05/23/23 11:46 05/23/23 11:31 05/23/23 11:31 93 05/23/23 11:30 93 05/23/23 11:22 95 05/23/23 11:22 05/23/23 11:15 92 26 05/23/23 11:14 91 05/23/23 10:56 93 BiPAP 05/23/23 10:46 92 05/23/23 10:46 05/23/23 10:33 92 05/23/23 10:33 05/23/23 10:31 92 05/23/23 10:31 05/23/23 10:30 93 05/23/23 10:00 92 05/23/23 09:50 97 40 05/23/23 09:30 05/23/23 09:30 05/23/23 09:25 Nasal Cannula 5 05/23/23 09:25 Nasal Cannula 5 05/23/23 09:25 96 Nasal Cannula 5 05/23/23 09:24 05/23/23 09:13 95 Laboratory Results 05/23/23 09:31 05/23/23 09:30 Diagnostic Findings cxr reviewed
[2023-05-23] MEDS ORDERED: ICU Protocol for HYPERglycemia SCH (16:30)
--- NOTE | 2023-05-23 16:31 | Electrocardiogram Report ---
Test Reason : Blood Pressure : / mmHG Vent. Rate : 062 BPM Atrial Rate : 062 BPM P-R Int : 184 ms QRS Dur : 094 ms QT Int : 446 ms P-R-T Axes : -07 021 045 degrees QTc Int : 452 ms Normal sinus rhythm Poor R wave progression, consider anterior IA vs. lead placement vs. LVH Abnormal ECG When compared with ECG of 05-MAR-2023 19:28, Premature ventricular complexes are no longer Present Left bundle branch block is no longer Present Confirmed by Cristhian Tanner ([id number]) on 05/23/2023 4:30:32 PM Referred By: REFERRED SELF Confirmed By:Cristhian Tanner
[2023-05-23] MEDS: CARBIDOPA/LEVODOPA 25/100MG TAB PO SCH (16:36)
--- OUTSIDE RECORDS SUMMARY | 2023-05-23 19:59 | External Medical Summary ---
Author Name Unknown Address Unknown Organization [id number][facility] [address] [place] [address] Laboratory Report Ordering Provider Test Date Status SIRISHA PRESCOTT 05/14/2023 06:13:00 Final Observation Date Value Abnormality Reference (Units ) Status WBC, Total 05/14/2023 06:13:00 9.60 4.00-10.8 0 (K/uL) Final RBC 05/14/2023 06:13:00 4.72 3.85-5.15 (M/uL) Final Hemoglobin 05/14/2023 06:13:00 13.8 12.0-15.3 (g/dL) Final HCT 05/14/2023 06:13:00 43.1 36.0-45.2 (%) Final MCV 05/14/2023 06:13:00 91.3 81.5-97.5 (fL) Final MCH 05/14/2023 06:13:00 29.2 27.0-34.0 (pg) Final MCHC 05/14/2023 06:13:00 32.0 32.0-36.0 (g/dL) Final RDW 05/14/2023 06:13:00 16.4 11.5-15.5 (%) Final Platelets 05/14/2023 06:13:00 218 140-400 (K /uL) Final MPV 05/14/2023 06:13:00 12.3 6.6-11.1 ( fL) Final Performing Location [facility] [address] [place] [address]
--- OUTSIDE RECORDS SUMMARY | 2023-05-23 19:59 | External Medical Summary ---
Author Name Unknown Address Unknown Organization [id number]:LAB[facility] - [address] [place] [address] Laboratory Report Ordering Provider Test Date Status SIRISHA PRESCOTT 05/14/2023 06:13:00 Final Observation Date Value Abnormality Reference (Units ) Status CRP, low-sensitivity 05/14/2023 06:13:00 13 Above high normal <=5 (mg/L) Final Performing Location [facility] - [address] [place] [address]
--- OUTSIDE RECORDS SUMMARY | 2023-05-23 19:59 | External Medical Summary ---
Author Name Unknown Address Unknown Organization [id number]:[facility] [place] [address] [place] [address] Laboratory Report Ordering Provider Test Date Status SIRISHA PERSCOTT 05/14/2023 06:13:00 Final Observation Date Value Abnormality Reference (Units ) Status Erythrocyte sedimentation rate by Photometric method 05/14/2023 06:13:00 69 Above high normal <30 (mm/hour) Final Performing Location [facility] [address] [place] [address]
--- OUTSIDE RECORDS SUMMARY | 2023-05-23 19:59 | External Medical Summary | Summary of Care ---
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 Use as directed. 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 30 Tab 5 12/03/2019 Active Meclizine HCl 12.5 MG Oral Tablet (ANTIVERT) Take 1 Tablet by mouth 3 times a day as needed. 0 Active Breo Ellipta 200-25 MCG/INH Inhalation Aerosol Powder Breath Activated (fluticasone furoate-vilanterol)I ndications:COPD, group B, by GOLD 2017 classification ([facility]) Inhale by mouth 1 Puff [...] DAILY. 90 Tablet 1 08/21/2022 4 Active Carbidopa-Levodopa 25-100 MG Oral Tablet (Sinemet) TAKE ONE TABLET BY MOUTH THREE TIMES A DAY WITH MEALS 90 Tablet 5 09/14/2022 4 Active Lidocaine-Prilocaine 2.5-2.5 % External Cream (Emla) APPLY SMALL AMOUNT TO ACCESS SITE (AVF) 1 TO 2 HOURS BEFORE DIALYSIS. COVER WITH OCCLUSIVE DRESSING (SARAN WRAP) 30 g 11 11/09/2022 Active Nystatin [id number] UNIT/GM External Powder (Nystop) Apply topically to affected area 2 times a day. 60 g 5 11/09/2022 Active Pantoprazole Sodium 20 MG Oral Tablet Delayed Release (Protonix) Take 1 Tablet by mouth in the morning and 1 Tablet in the evening. 180 Tablet 1 11/27/2022 Active Isosorbide Mononitrate ER 30 MG Oral Tablet Extended Release 24 Hour (Imdur) TAKE 1 TABLET BY MOUTH DAILY 90 Tablet 3 01/14/2023 4 Active CPAP every night at bedtime. 0 Active Coloplast PasteIndications:Hem orrhoids, external without complications Use to hemorrhoids 1-2 times per day as needed for hemorrhoids 57 g 3 03/13/2023 Active Hydrocortisone (Perianal) 2.5 % External Cream (Procto-Med HC)Indications:Hemor rhoids, external without complications Administer into the rectum daily as needed for Hemorrhoids. 28 g 2 03/13/2023 Active Pregabalin 100 MG Oral Capsule (Lyrica)Indications: Primary parkinsonism Take 1 capsule by mouth twice daily. May take 1 extra capsule after dialysis 3 days a week 72 Capsule 5 03/19/2023 Active documented as of this encounter (statuses as of 05/15/2023) Active Problems Problem Noted Date Diagnosed Date History of colon polyps 05/05/2023 Full code status 03/27/2023 Morbid (severe) obesity due to excess calories 0 03/19/2023 Chronic kidney disease-mineral and bone disorder 03/10/2023 Anemia in end-stage renal disease 03/10/2023 ESRD (end stage renal disease) on dialysis 03/09 Acquired hypothyroidism 06/17/2022 Last Assessment & Plan: TSH ordered Continue Synthroid Palliative care encounter 06/07/2021 Dementia associated with Parkinson's disease Last Assessment & Plan: Baseline -continue carbidopa levodopa, Lyrica AVF (arteriovenous fistula) 08/16/2020 History of CVA (cerebrovascular accident) 2019 Last Assessment & Plan: Continue aspirin, atorvastatin Personal history of fall 10/21/2019 Diabetes mellitus with ESRD (end-stage renal dis ease) 09/27/2019 Overview: Per CKD protocol Iron deficiency anemia due to chronic blood [...] Compliant with CPAP Restless leg syndrome 08/14/2012 Obesity 08/28/2009 Overview: bmi [address] More specific code on [address] Per Obesity Protocol, #19 Steatohepatitis, non-alcoholic 07/11/2009 Hypothyroidism due to acquired atrophy of thyroi d 06/27/2009 Meniere's disease, cochlear, active 10/07/2006 ADVANCE DIRECTIVE INFORMATION 08/02/2005 Overview: Yes-advised to bring copy in to be scanned into EMR Dyslipidemia, goal LDL below 100 AYSHA (generalized anxiety disorder) Last Assessment & Plan: Stable on sertraline documented as of this encounter (statuses as of 05/15/2023) Resolved Problems Problem Noted Date Diagnosed Date Resolved Date Problem with dialysis access 03/09/2023 03/18/2023 UTI (urinary tract infection) 03/09/2023 03/19/2023 Serrated polyp of colon 09/20/202204/17 Overview: 7 mm descending colon BMI 38.0-38.9,adult 09/12/2022 03/19/19 Overview: 210 Major depressive disorder, r ecurrent episode, moderate 08/09/2022 08/09/2022 Last Assessment & Plan: Stable on sertraline Rectal bleeding 08/09/2022 01/29/2023 Last Assessment & Plan: Needs colonoscopy scheduled -CBC Hypothyroidism 05/31/2021 05/27/2022 MDD (major depressive disord er), recurrent, in partial remission 08/16/2020 09/08/2020 Hypothyroidism, unspecified 08/16/2020 09/08/2020 Dependence on renal dialysis 12/03/2019 03/19/2023 Last Assessment & Plan: continue Auryxia , nephrovite Body mass index (BMI) of 45. 0 to 49.9 in adult 09/27/2019 11/25/2019 Overview: Per Obesity protocol Degenerative disease of nerv ous system, unspecified 08/26/2019 08/16/2020 Type 2 diabetes mellitus wit h diabetic dermatitis, without long-term current use of insulin 08/05/2019 03/19/2023 Hypertensive heart disease w ith combined systolic and diastolic heart failure and end stage chronic kidney disease on dialysis 08/05/2019 03/19/2023 Last Assessment & Plan: Dialysis Friday, , Friday. Hypotensive today, however the patient just woke up in his lying in bed. Asymptomatic. -continue Imdur Multiple falls 04/20/2019 11/26/2019 Overview: History of [...] 08/07/2017 Overview: Per CKD protocol #1 Type 2 diabetes mellitus wit h hemoglobin A1c goal of less than 7.0% 10/23/2011 03/19/2023 Overview: ICD-10 update of inactive term Type 1 diabetes mellitus wit h hemoglobin A1c goal of less than 7.0% 11/10/2009 10/23/2011 Overview: ICD-10 update of inactive term Venous thrombosis 03/08/2008 10/25/2008 Anticoagulation management encounter [...] Overview: More specific code on the pl Mild neurocognitive disorder 03/19/2023 documented as of this encounter (statuses as of 05/15/2023) Immunizations Name Administration Dates Next Due COVID-19 [...] Date Smoking Tobacco: Former Cigarettes 0.3 50 0 04/20/1939 - 04/20/1989 Smokeless Tobacco: Never Comments:smoked since 19 [...] you have serious difficulty h earing? No 03/09/2023 Are you blind or do you have serious difficulty seeing, even when wearing glasses? No 03/09/2023 Do you have serious difficul ty walking or climbing stairs? (5 years old or older) Yes 03/09/2023 Do you have difficulty dress ing or bathing? (5 years old or older) Yes 03/09/2023 Because of a physical, menta l, or emotional condition, do you have difficulty doing errands alone such as visiting a doctor s office or shopping? (15 years old or older) No 03/09/20 Cognitive Status Response Date of Assessm ent Because of a physical, menta l, or emotional condition, do you have serious difficulty concentrating, remembering, or making decisions? (5 years old or older) No 03/09/2023 documented as of this encounter Plan of Treatment Upcoming Encounters Date Type Department Care Team (Late st Contact Info) Description 06/10/2023 3:00 PM EDT Laboratory Laboratory [address] [place] [phone] [address] [place] [id number] 06/16/2023 2:30 PM EDT Office Visit Hematology/Oncology [facility] [address] [place] [phone] Cynthia Gonzalez MD [address] [place] [id number] Scheduled Procedures Name Priority Associated Diagnoses Date/Ti me COLONOSCOPY FLEXIBLE PROXIMA L DIAGNOSTIC Recall Encounter for screening colonoscopy Health Maintenance Due Date Last Done Comments Zoster Vaccines (2 of 3) 12/18/2011 10/23/2011 Depression Screening 01/22/2020 01/21/2019 COVID-19 Vaccine (6 - 2022-2 4 season) 2022 01/17/2022, 07/23/2021, 01/02/2021, Additional history exists Influenza Vaccine (FLU shot) (#1) 2022 12/29/2021, 12/04/2021, 05/31/2021, Additional history exists TSH 08/11/2023 08/10/2022, 05/15, 08/21/2020, Additional history exists O2 ASSESSMENT COMPLETED IN P AST YEAR FOR COPD 03/09/2024 03/09/2023 Diabetic Foot Exam Discontinued 08/16/2020, 0 08/26/2019, 08/04/2018, Additional history exists Diabetic Eye Exam Discontinued 12/05/2021, , 03/23/2018, Additional history exists Colonoscopy Discontinued 09/20/2022, 11/15, 11/27/2015, Additional history exists Colorectal Cancer Screening Discontinued Cologuard Discontinued Fecal Occult Blood Test Discontinued Sigmoidoscopy Discontinued documented as of this encounter Medical Devices Not on filedocumented as of this encounter Visit Diagnoses Diagnosis 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 Question Answer Comments Discussion of Advance Directives occurred with: Patient Code Status History Code Status Date Activated [...] No External Pacemaker? No Cardiac Drugs? No Full Code 04/20/2019 7:06 PM 04/25/2019 7:49 AM Question Answer Comments Discussion of Advance Directives occurred with: Not Discussed Does the patient have a Living Will? No Does the patient have Health Care Power of Information Director? No Healthcare Agents on File Name Relationship Healthcare Agent [facility] p Communication Wesley Lee Sonya Spouse Health Care Agent Care Teams Seafood Fisherman Relationship Specialty Start Date End Date Bella Power MD [address] [place] [address] [place] [phone] PCP - General Family Medicine 04/02/19 documented as of this encounter
--- OUTSIDE RECORDS SUMMARY | 2023-05-23 19:59 | External Medical Summary | Continuity Of Care Document ---
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 Essential (primary) hypertension 03/18/2023 Active I21.4 Non-ST elevation (NSTEMI) myocardial infarction 03/18/2023 Active M06.9 Rheumatoid arthritis, unspecified 03/18/2023 00 / Active M62.81 Muscle weakness (generalized) 03/18/2023 0000/ 0000 Active VITAL SIGNS Date Time Diastolic blood pressure Systolic blood pressure Body height Body weight Temperature SpO2 Blood Sugar Pulse Respirations 130 77995 0 66.00 mm[Hg] - Sitting 119.00 mm[Hg] - Sitting 97.20 Oral 71.00/ min 202 02166 0 56.00 mm[Hg] - Sitting 121.00 mm[Hg] - Sitting 98.10 Oral 58.00/ min 205 41208 7 06902 206 57740 3 227.00 NI 207 57845 1 227.00 NI 208 [id number] 0 74.00 mm[Hg] - Sitting 120.00 mm[Hg] - Sitting 65.00/ min 213 29095 0 68.00 mm[Hg] - Sitting 115.00 mm[Hg] - Sitting 75.00/ min 227 22093 0 52.00 mm[Hg] - Sitting 90.00 mm[Hg] - Sitting 56.00/ min Immunizations Vaccine Date Status COVID-19 05/24/2020 Completed COVID-19 06/21/2020 Completed COVID-19 01/02/2021 Completed COVID-19 07/23/2021 Completed COVID-19 07/24/2021 Completed COVID-19 01/17/2022 Completed Influenza 01/01/2023 Completed (PCV13)Pneumococcal 10/28/2014 Completed (PPSV23)Pneumococcal 03/22/2016 Completed Shingles 10/23/2011 Completed TDaP 06/27/2009 Completed
--- OUTSIDE RECORDS SUMMARY | 2023-05-23 19:59 | External Medical Summary | Summary of Care ---
Author Name Unknown Organization [facility] Address [address] [facility] [place] [address] Phone [phone] Care Team Providers Care Turning Sander Tender Name Role Phone Bella Power MD Primary Care Prov ider Reason for Visit * Reason Onset Date Comments Long-Term Visit 05/20/2023 Encounter Details Date Type Department Care Team (Latest Contact Info) Description 05/20/2023 11:30 AM EST Long-Term Visit [facility] [address] [place] [address] Nae Rodriges PA-C [address] [place] [address] Acute conjunctivitis of left eye, unspecified acute conjunctivitis type*; Abrasion, thigh w/o infection; ESRD (end stage renal disease) on dialysis ([facility]); RENÉ on CPAP Allergies No known active allergiesdocumented as of this encounter (statuses as of 05/20/2023) Medications Medication Sig Dispensed Refills Start Date [...] , group B, by GOLD 2017 classification ([facility]) Inhale via nebulizer. Use as directed. 1 Each 1 11/27/2018 Active DIURETIC TITRATION PLANIndications:Scallop Binder sandro heart failure with preserved ejection fraction [...] ndications:COPD, group B, by GOLD 2017 classification ([facility]) Inhale by mouth 1 Puff in [...] WRAP) 30 g 11 11/09/2022 Active Nystatin 759412 UNIT/GM External Powder (Nystop) Apply topically to [...] as of this encounter (statuses as of 05/20/2023) Active Problems Problem Noted Date Diagnosed Date [...] as of this encounter (statuses as of 05/20/2023) Resolved Problems Problem Noted Date Diagnosed Date Resolved Date Problem with dialysis access 03/09/2023 03/18/2023 UTI (urinary tract infection) 03/09/2023 03/19/2023 Serrated polyp of colon 09/20/202204/17 Overview: 7 mm descending colon BMI 38.0-38.9,adult 09/12/2022 03/19/19 24 Overview: 210 Major depressive disorder, r ecurrent [...] Per Obesity protocol Acute heart failure 09/03/2018 09/20/20 19 NSTEMI (non-ST elevated myoc ardial infarction) [...] as of this encounter (statuses as of 05/20/2023) Immunizations Name Administration Dates Next Due COVID-19 [...] (15 years old or older) No 03/09/20 23 Cognitive Status Response Date of Assessm ent Because of a physical, menta l, or emotional condition, do you have serious difficulty concentrating, remembering, or making decisions? (5 years old or older) No 03/09/2023 documented as of this encounter Plan of Treatment Upcoming Encounters Date Type Department Care Team (Late st Contact Info) Description 06/10/2023 3:00 PM EDT Laboratory Laboratory [address] [place] [phone] [place] [address] 06/16/2023 2:30 PM EDT Office Visit Hematology/Oncology State [facility] [address] [place] [phone] Cynthia Gonzalez MD [address] [place] [address] Scheduled Procedures Name Priority Associated Diagnoses Date/Ti [...] as of this encounter Visit Diagnoses Diagnosis Acute conjunctivitis of left eye, unspecified acute conjunctivitis type- Primary Abrasion, thigh w/o infection Hip, thigh, leg, and ankle, abrasion or friction burn, without mention of infection ESRD (end stage renal disease) on dialysis (HCC) End stage renal disease RENÉ on CPAP Obstructive sleep apnea (adult) (pediatric) documented in this encounter Advance Directives Documents on File Type Date Recorded Patient Wire Spiral Binder Expl anation Power of Acupressurist 12/16/2018 10:33 AM Nate r of Acupressurist Latest Code Status on File Code Status [...] the patient have Health Care Power of Acupressurist? No Healthcare Agents on File Name Relationship Healthcare Agent Relationshi p Communication Wesley Hassan Spouse Health Care Agent Care Teams Turning Sander Tender Relationship Specialty Start Date End Date Bella Power MD [address] [place] [address] [place] [address] PCP - General Family Medicine 04/02/19 documented as of this encounter
--- OUTSIDE RECORDS SUMMARY | 2023-05-23 19:59 | External Medical Summary ---
Author Name Unknown Address Unknown Organization K01:[facility] - [address] [place] [address] Laboratory Report Ordering Provider Test Date Status SIRISHA PRESCOTT 05/14/2023 06:13:00 Final Observation Date Value Abnormality Reference (Units ) Status Uric Acid 05/14/2023 06:13:00 5.7 2.4-5.7 (m g/dL) Final Performing Location [facility] - [address] [place] [address]
--- OUTSIDE RECORDS SUMMARY | 2023-05-23 19:59 | External Medical Summary ---
Author Name Unknown Address Unknown Organization K0G:[facility] [address] [place] [address] Laboratory Report Ordering Provider Test Date Status SIRISHA PRESCOTT 05/14/2023 06:13:00 Final Observation Date Value Abnormality Reference (Units ) Status Nucleated erythrocytes/100 leukocytes [Ratio] in Blood by Automated count 05/14/2023 06:13:00 Final Performing Location [facility] [address] [place] [address]
--- OUTSIDE RECORDS SUMMARY | 2023-05-23 20:00 | External Medical Summary | Continuity Of Care Document ---
Author Name Unknown Address [address] [place] [address] Organization [facility] ( ) Care Team Providers Care Lead Applications Developer Name Role Phone Howie Gilbert Primary Care Provider [phone] Problems Code Description Start Date End Date [...] infarction 03/18/2023 Active M06.9 Rheumatoid arthritis, unspecified 03/18/20230000 Active M62.81 Muscle weakness (generalized) 03/27/202300 0000 Active VITAL SIGNS Date Time Diastolic blood pressure Systolic blood pressure Body height Body weight Temperature SpO2 Blood Sugar Pulse Respirations 124 46697 9 231[place]00 [place] [address] 124 11593 0 52.00 mm[Hg] - Sitting 104.00 mm[Hg] - Sitting 98.40 Oral 56.00/ min 14839 125 69355 0 54.00 mm[Hg] - Sitting 101.00 mm[Hg] - Sitting 67.00/ min 98273 129 16877 7 231.00 NI [address] 130 59626 0 66.00 mm[Hg] - Sitting 119.00 mm[Hg] - Sitting 97.20 Oral 71.00/ min 78978 202 29284 0 56.00 mm[Hg] - Sitting 121.00 mm[Hg] - Sitting 98.10 Oral 58.00/ min 41490 205 55750 7 72001 206 50527 3 227.00 [place] [address] 207 23066 1 227.00 NI [address] 208 67464 0 74.00 mm[Hg] - Sitting 120.00 mm[Hg] - Sitting 65.00/ min 57923 213 31442 0 68.00 mm[Hg] - Sitting 115.00 mm[Hg] - Sitting 75.00/ min Immunizations Vaccine Date Status COVID-19 05/24/2020 Completed COVID-19 06/21/2020 Completed COVID-19 01/02/2021 Completed COVID-19 07/23/2021 Completed COVID-19 07/24/2021 Completed COVID-19 01/17/2022 Completed Influenza 01/01/2023 Completed (PCV13)Pneumococcal 10/28/2014 Completed (PPSV23)Pneumococcal 03/22/2016 Completed Shingles 10/23/2011 Completed TDaP 06/27/2009 Completed
--- OUTSIDE RECORDS SUMMARY | 2023-05-23 20:00 | External Medical Summary | Summary of Care ---
Author Name Unknown Organization [facility] Address [address] [place] [address] Phone [phone] Care Team Providers Care Collar Shaper Operator Name Role Phone Bella Power MD Primary Care Prov ider Encounter Details Date Type Department Care Team (Late st Contact Info) Description 05/13/2023 Orders Only Lab [facility] [address] [place], [place] [id number] Howie Gilbert MD [address] [place] [address] [place] [address] RA (rheumatoid arthritis) ([facility])*; Intermittent pain and swelling of hand Allergies No known active allergiesdocumented as of this encounter (statuses as of 05/13/2023) Medications Medication Sig Dispensed Refills Start Date [...] , group B, by GOLD 2017 classification ([facility]) Inhale via nebulizer. Use as directed. 1 Each 1 11/27/2018 Active DIURETIC TITRATION PLANIndications:Trust Mail Clerk sandro heart failure with preserved ejection fraction ([facility]) If no improvement on day 3, contact [...] group B, by GOLD 2017 classification ([facility]) Inhale by mouth 1 [...] WRAP) 30 g 11 11/09/2022 Active Nystatin 810582 UNIT/GM External Powder (Nystop) Apply topically to [...] as of this encounter (statuses as of 05/13/2023) Active Problems Problem Noted Date Diagnosed Date [...] as of this encounter (statuses as of 05/13/2023) Resolved Problems Problem Noted Date Diagnosed Date [...] as of this encounter (statuses as of 05/13/2023) Immunizations Name Administration Dates Next Due COVID-19 mRNA, LNP-s, No Pre serve, 2-Dose Series (TeraDiode) 01/02/2021,06/21/2020,05/24/2020 COVID-19, mRNA, LNP-s, PF, B ooster, [...] Care Team (Late st Contact Info) Description 05/14/2023 8:30 AM EST Laboratory Lab Mobile Phlebotomy [address] [place] [address] 06/10/2023 3:00 PM EDT Laboratory Laboratory [address] [place] [phone] [place] [address] 06/16/2023 2:30 PM EDT Office Visit Hematology/Oncology [facility] [address] [place] [phone] Cynthia Gonzalez MD [address] [place] [address] Scheduled Orders Name Type Priority Associated Diagnoses Orde r Schedule CBC WITH WBC DIFFERENTIAL Lab Routine RA (rheumatoid arthritis) ([facility]) Intermittent pain and swelling of hand Expected: 05/13/2023, Expires: 05/13/2024 CRP (INFLAMMATORY MARKER) Lab Routine RA (rheumatoid arthritis) ([facility]) Intermittent pain and swelling of hand Expected: 05/13/2023, Expires: 05/13/2024 ERYTHROCYTE SEDIMENTATION RATE (ESR) Lab Routine RA (rheumatoid arthritis) ([facility]) Intermittent pain and swelling of hand Expected: 05/13/2023, Expires: 05/13/2024 URIC ACID Lab Routine RA (rheumatoid arthritis) ([facility]) Intermittent pain and swelling of hand Expected: 05/13/2023, Expires: 05/13/2024 Scheduled Procedures Name Priority Associated Diagnoses Date/Ti [...] as of this encounter Visit Diagnoses Diagnosis RA (rheumatoid arthritis) ([facility])- Primary Rheumatoid arthritis Intermittent pain and swelling of hand documented in this encounter Advance Directives Documents on File Type Date Recorded Patient Damage Cutter Expl anation Power of Director Of Oncology 12/16/2018 10:33 AM Nate peralta of Director Of Oncology Latest Code Status on File Code Status [...] have Health Care Power of Director Of Oncology? No Healthcare Agents on File Name Relationship Healthcare Agent Relationshi p Communication Wesley Hassan Spouse Health Care Agent Care Teams Collar Shaper Operator Relationship Specialty Start Date End Date Bella Power MD [address] [place] [address] [place] [address] PCP - General Family Medicine 04/02/19 documented as of this encounter
--- OUTSIDE RECORDS SUMMARY | 2023-05-23 20:00 | External Medical Summary | Summary of Care ---
Author Name Unknown Organization [facility] Address [address] [facility] [place] [address] Phone [phone] Care Team Providers Care Radiology Supervisor Name Role Phone Bella Power MD Primary Care Prov ider Reason for Visit * Reason Onset Date Comments Fdc Visit 05/13/2023 Encounter Details Date Type Department Care Team (Latest Contact Info) Description 05/13/2023 9:00 AM EST Fdc Visit [facility] [address] [place] [address] Nae Rodriges PA-C [address] [place] [place], [place] [id number] Rheumatoid arthritis involving left hand with positive rheumatoid factor ([facility])*; 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[facility]); Diabetes mellitus with ESRD (end-stage renal disease) ([facility]) Allergies No known active allergiesdocumented as of [...] classification ([facility]) Inhale via nebulizer. Use as directed. 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 Please see facility medical record for original note. This note is not to be edited or addended in [employer]. Editing or addending needs to occur in the facilities medical record. Subjective: Kami Hassan is a 77 year old female. Patient being seen for recheck of left hand pain and swellilng Chief Complaint Patient presents with Fdc Visit HPI: Pt was assessed yesterday for pain , swellling left hand . 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 No coldness, inflammation of hand noted. Pt has hx of RA of her hands. Xray done in facility showed RA changes but no fxs. Pt was begun on Prednisone 30mg daily. Uric acid, ESR and CRP pending. Today pt states "I can move my hand and fingers a lot better". Less pain and stiffness. Swelling isdown also. No chills or fever Labs done at dialysis center. Patient Active Problem List Diagnosis Code ADVANCE DIRECTIVE INFORMATION Meniere's disease, cochlear, active H81.09 Hypothyroidism due to acquired atrophy of thyroid E03.4 Steatohepatitis, non-alcoholic K75.81 Obesity E66.9 Restless leg syndrome G25.81 Dyslipidemia, goal LDL below 100 E78.5 AYSHA (generalized anxiety disorder) F41.1 RENÉ on CPAP G47.33 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 factor ([facility]) M05.741, M05.742 Primary parkinsonism G20.C History of non-ST elevation myocardial infarction (NSTEMI) I25.2 Venous stasis dermatitis of both lower extremities I87.2 COPD, group B, by GOLD 2017 classification ([facility]) J44.9 Chronic heart failure with preserved ejection fraction ([facility]) I50.32 Iron deficiency anemia due to chronic blood loss D50.0 Diabetes mellitus with ESRD (end-stage renal disease) ([facility]) E11.22, N18.6 Personal history of fall Z91.81 History of CVA (cerebrovascular accident) Z86.73 AVF (arteriovenous fistula) ([facility]) 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[facility]) G20.A1, F02.80 Palliative care encounter Z51.5 Acquired hypothyroidism E03.9 ESRD (end stage renal disease) on dialysis ([facility]) N18.6, Z99.2 Chronic kidney disease-mineral and bone disorder N18.9, E83.9, M89.9 Anemia in end-stage renal disease ([facility]) N18.6, D63.1 Morbid (severe) obesity due to excess calories ([facility]) E66.01 Full code status Z78.9 History of colon polyps Z86.010 Past Medical History: Diagnosis Date (HFpEF) heart failure with preserved ejection fraction ([facility]) Acute on chronic diastolic (congestive) heart failure ([facility]) 03/04/2020 [facility] Allergic rhinitis 02/15/2000 acute BMI 38.0-38.9,adult 08/28/2009 Chronic Sinusitis Unspecified Controlled substance agreement signed 11/25/2016 COVID-19 10/23/2021 Cystitis 05/23/2022 admitted [facility] home on cefuroxime Dyslipidemia, goal LDL [...] rheumatoid factor (HCC) 07/18/2016 SDH (subdural hematoma) ([facility]) 04/20/2019 acute Serrated polyp of colon 09/20/2022 7 mm descending colon Sleep apnea Tinnitus 01/2005 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 ([facility]) Past Surgical History: Procedure Laterality Date ARTHROPLASTY KNEE TOTAL Left Dr. Del Real CARPAL TUNNEL SURGERY Bilateral COLONOSCOPY, DIAGNOSTIC (RECTUM) 11/27/2015 normal, repeat 10 yrs/COLONOSCOPY FLEXIBLE PROXIMAL DIAGNOSTIC performed by Garrett Chang MD at ENDOSCOPY [facility] COLONOSCOPY, DIAGNOSTIC (RECTUM) 09/20/2022 serrated polyp, fair prep / [facility] EGD, FLEXIBLE, DIAGNOSTIC 04/19/2022 esophagitis, repeat 8-12 wks / [facility] EGD, FLEXIBLE, DIAGNOSTIC 06/26/2022 normal, retained food / [facility] EXPLORATION OF MAXILLARY SINUS 03/17/1995 Sinus Surgery HYSTEROSCOPY,DIAGNOSTIC 2022 atrophic endometrium, endometrial polyp INJECTION LUMBAR/SACRAL 07/31/2015 INJECTION SPINE LUMBAR OR SACRAL performed by Quincy Prado, at OR [facility] INJECTION LUMBAR/SACRAL 08/15/2015 INJECTION SPINE LUMBAR OR SACRAL performed by Quincy Prado DO at OR [facility] INSER MARLI CAT,W/O PUMP;5YR/OLD N/A 11/04/2019 INSERT TUNNELED CENTRAL VENOUS CATHETER AGE 6 OR OLDER performed by Ortega Montez DO at OR [facility] INSER MARLI CAT,W/O PUMP;5YR/OLD Right 03/09/2023 INSERT TUNNELED CENTRAL VENOUS CATHETER AGE 5 OR OLDER performed by Fred Brown MD at OR [facility] INTRO CATH DIALYSIS CIRCUIT W/TRANSLUM BALLOON ANGIOPLASTY Right 03/09/2023 AV FISTULOGRAM & PERIPHERAL ANGIOPLASTY performed by Fred Brown MD at OR [facility] LIGATE/CUT OVIDUCT(S) MISCELLANEOUS ORDER ([facility] ONLY) Bilateral Heel surgery MISCELLANEOUS ORDER ([facility] ONLY) Right 3rd toe nerve decompression, Dr. Del Real [place] COLSC FLX W/RMVL OF TUMOR POLYP LESION SNARE TQ 09/20/2022 7 mm serrated polyp descending colon Family History Problem Relation Age of Onset Heart Disorder Father also had AAA, age 85 Diabetes Father Hypertension Father Musculo-skeletal Disorder Mother has myasthenia gravis, now age 75 Hypertension Mother Neurological Disorder Brother myotonic dystrophy Neurological Disorder Sister wheelchair bound, indwelling Kirby Neurological Disorder Sister myotonic dystrophy Diabetes Brother Diabetes Sister Diabetes Sister Heart Disorder Sister Family Status Relation Status Fa at age 85 Mo (Not Specified) Bro (Not Specified) Sis (Not Specified) Sis (Not Specified) Bro (Not Specified) Sis (Not Specified) Sis (Not Specified) Sis (Not Specified) Social History Socioeconomic History Marital status: Spouse name: Wesley Number of children: 3 Years of education: Not on file Highest education level: Not on file Occupational History Occupation: at home Tobacco Use Smoking status: Former Current packs/day: 0.00 Average packs/day: 0.3 packs/day for 50.0 years (12.5 ttl pk-yrs) Types: Cigarettes Start date: 04/20/1939 Quit date: 04/20/1989 Years since quittin.0 Smokeless tobacco: Never Tobacco comments: smoked since 19 years of age. Smokes a pack every 3-4 days. 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 Please refer to MAR in the facility's medical record forthe most up-to-date medication list as this cannot be edited in [employer]. Review of Systems: obtained from pt and staff Constitutional ROS: No change in weight, No change in weakness, No change in fatigue and No fevers,sweats, or chills Nose ROS: No nasal stuffiness and No significant epistaxis Mouth/Throat ROS: No thrush or No sore throat Neck ROS: No lumps or masses, No swollen glands, No recent swelling in thyroid area and No significant pain in neck Pulmonary ROS: No cough, sputum, or hemoptysis, No wheezing, No shortness of breath and No recent change in breathing Cardiovascular ROS: No chest pain, No shortness of breath, No edema, No palpitations and No syncope Gastrointestinal ROS: No abdominal pain, No change in bowel habits, No significant change in appetite, No nausea, vomiting, diarrhea, or constipation and No dysphagia Musculoskeletal/Extremities ROS: see HPI Skin/Integumentary ROS: No rash and No itching Psychiatric ROS: No depression, No anxiety and No psychosis + dementia OBJECTIVE: PHYSICALEXAM: I reviewed the most recent facilities vitals. General: alert, no distress, well nourished and well developed Eye Exam: Conjunctiva are pink and non-injected, sclera clear Oropharynx: no exudate, no erythema, lips, buccal mucosa, and tongue normal and mucous membranes are moist Neck: supple, no adenopathy, non-tender, neck veins flat, trachea midline Heart: regular rate & rhythm, no murmurs and no gallops Lungs: normal respiratory rate and rhythm, no chest wall tenderness, lungs clear to auscultation Abdomen: abdomen soft, non-tender, normal bowel sounds and no masses or organomegaly Extremities: less tenderness and less edema,left hand. Better echocardiography technologist. No erythema Skin: skin color, texture, turgor are normal, no rashes or significant lesions ASSESSMENT: Rheumatoid arthritis involving left hand with positive rheumatoid factor (HCC) (Primary) Clinically improved Reviewed xray of hand/wrist Continue Prednsione 30mg daily to complete course Awaiting CRP, ESR, uric acid 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HCC) Stable mood and mentatiion Continue Sinemet 25/100mg TID and Sertraline 100mg daily 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) Continue with dialysis three days weeklly PLAN: Continue present medication(s):as ordered. Shelter Home Treatment Given: as above Electronically signed by: Nae Rodriges PA-C Over 35 minutes were spent in this visit more than half the time was spent counselling or coordinating care. documented in this encounter Plan of Treatment Upcoming Encounters Date Type Department Care Team (Late st Contact Info) Description 06/10/2023 3:00 PM EDT Laboratory Laboratory [address] [place] [phone] [address] [place] [id number] 06/16/2023 2:30 PM EDT Office Visit Hematology/Oncology [facility] [address] [facility] [place] [id number] Cynthia Gonzalez MD [address] [place] [address] Scheduled Procedures Name Priority Associated Diagnoses Date/Ti [...] encounter Visit Diagnoses Diagnosis Rheumatoid arthritis involving left hand with positive rheumatoid factor (HCC)- Primary 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HCC) 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) Type II or unspecified type diabetes mellitus with renal manifestations, not stated as uncontrolled documented in this encounter Advance Directives Documents on File Type Date Recorded Patient 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 No Healthcare Agents on File Name Relationship Healthcare Agent [facility] Communication Wesley Hassan Spouse Health Care Agent Care Teams Radiology Supervisor Relationship Specialty Start Date End Date Bella Power MD [address] [place] [address] [place] [phone] PCP - General Family Medicine 04/02/19 documented as of this encounter
--- OUTSIDE RECORDS SUMMARY | 2023-05-23 20:00 | External Medical Summary | Summary of Care ---
Author Name Unknown Organization [facility] Address [address] [place] [facility] [place] [address] Phone [phone] Care Team Providers Care Range Examiner Name Role Phone Bella Power MD Primary Care Prov ider Reason for Visit * Reason Onset Date Comments Detention Visit 05/12/2023 Encounter Details Date Type Department Care Team (Latest Contact Info) Description 05/12/2023 8:00 AM EST Detention Visit [facility] [address] [place] [address] Nae Rodriges PA-C [address] [place], [place] [phone] Right hand pain*; Localized swelling on right hand; Dermatitis associated with moisture; 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HCC); 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 factor ([facility]) Allergies No known active allergiesdocumented as of this encounter (statuses as of 05/12/2023) Medications Medication Sig Dispensed Refills Start Date [...] , group B, by GOLD 2017 classification ([facility]) Inhale via nebulizer. Use as directed. 1 Each 1 11/27/2018 Active DIURETIC TITRATION PLANIndications:Tilesetter sandro heart failure with preserved ejection fraction [...] WRAP) 30 g 11 11/09/2022 Active Nystatin 116132 UNIT/GM External Powder (Nystop) Apply topically to [...] as of this encounter (statuses as of 05/12/2023) Active Problems Problem Noted Date Diagnosed Date [...] as of this encounter (statuses as of 05/12/2023) Resolved Problems Problem Noted Date Diagnosed Date [...] as of this encounter (statuses as of 05/12/2023) Immunizations Name Administration Dates Next Due COVID-19 [...] Progress Notes * Nae Rodriges PA-C - 05/12/2023 11:40 AM EST Name: Kami Hassan Date of :1945 TRANSITION EVENT: Type: Non-applicable Date: May 12 Code Status: Full Code This note pertains to care provided at [facility]. Please see facility medical record for original note. This note is not to be edited or addended in [employer]. Editing or addending needs to occur in the facilities medical record. Subjective: Kami Hassan is a 77 year old female. Patient being seen for two issues Chief Complaint Patient presents with Detention Visit HPI: I was asked to assess pt for complaints of pain with localized swelling right hand and fingersover this weekend. There is no documentation of trauma or falls to right hand. Pt does have RA. Is not on any Rx currently for RA. No redness, increased warmth to touch of right hand. No cyanosis or discoloration. No coldness to touch of hand. Currently receiving Tylenol with little relief. Pt also noted to have significant blood in sides of brief. When staff assessed pt has significant MASD inner thighs. Not painful for patient. No chills or fever. No new soaps, medications, detergents, etc. Theracalazinc currently applied. CBC Results: Results for orders placed or performed in visit on 04/01/23 CBC Result Value Ref Range WBC 9.16 4.00 - 10.80 K/uL RBC 3.35 3.85 - 5.15 M/uL HGB 9.6 (L) 12.0 - 15.3 g/dL HCT 33.0 (L) 36.0 - 45.2 % MCV 98.5 81.5 - 97.5 fL MCH 28.7 27.0 - 34.0 pg MCHC 29.1 32.0 - 36.0 g/dL RDW 16.3 11.5 - 15.5 % PLT 278 140 - 400 K/uL MPV 11.8 6.6 - 11.1 fL nRBCs 0 <=0 /100 WBCs Hemoglobin Results: Lab Results Component Value Date/Time HGB - [facility] 9.6 (L) 04/01/2023 01:22 PM HGB - [facility] 10.0 (L) 03/31/2023 06:10 AM HGB - [facility] 9.1 (L) 03/18/2023 08:22 AM HGB - [facility] 7.9 (L) 02/28/2020 04:45 PM HGB - [facility] 8.9 (L) 02/16/2020 11:45 AM HGB - [facility] 8.5 (L) 12/03/2019 01:09 PM Basic Panel Results: Results for orders placed or performed during the hospital encounter of 03/09/23 BASIC METABOLIC PANEL Result Value Ref Range BUN 63 (H) 6 - 20 mg/dL Creatinine 12.6 (H) 0.5 - 1.0 mg/dL Estimated Glomerular Filtration Rate 3 (L) >=60 mL/min Sodium 137 135 - 146 mmol/L Potassium 4.1 3.5 - 5.1 mmol/L Chloride 97 (L) 98 - 107 mmol/L CO2 20 (L) 22 - 32 mmol/L Anion Gap 20 (H) 7 - 15 mmol/L Glucose 103 70 - 120 mg/dL Calcium 8.2 (L) 8.4 - 10.2 mg/dL Creatinine Results: Lab Results Component Value Date/Time CREATININE - [facility] 9.2 (H) 03/18/2023 08:00 AM CREATININE - [facility] 5.7 (H) 03/16/2023 05:05 AM CREATININE - [facility] 7.9 (H) 03/15/2023 05:56 AM CREATININE - [facility] 5.2 (H) 10/27/2019 10:00 AM CREATININE - [facility] 4.8 (H) 10/22/2019 12:02 PM CREATININE - [facility] 4.1 (H) 10/14/2019 03:46 PM CREATININE ISTAT 1.7 (H) 01/11/2019 12:09 PM CREATININE, RANDOM URINE - [facility] 82 01/21/2019 04:34 PM CREATININE, RANDOM URINE - [facility] 91 10/13/2017 02:34 PM CREATININE, RANDOM URINE - [facility] 214 12/05/2016 02:18 PM CREATININE-[facility] 3.59 (A) 06/12/2021 12:00 AM CREATININE-[facility] 6.18 (A) 07/10/2020 12:00 AM CREATININE-OUTSIDE LAB 4.45 (A) 02/11/2020 12:00 AM Potassium Results: Lab Results Component Value Date/Time POTASSIUM 4.3 06/24/1996 04:55 PM POTASSIUM - [facility] 4.6 03/18/2023 08:00 AM POTASSIUM - [facility] 3.8 03/16/2023 05:05 AM POTASSIUM - [facility] 3.4 (L) 03/15/2023 05:56 AM POTASSIUM - [facility] 3.9 10/27/2019 10:00 AM POTASSIUM - [facility] 3.6 10/22/2019 12:02 PM POTASSIUM - [facility] 4.2 10/14/2019 03:46 PM POTASSIUM POCT - [facility] 4.9 04/25/2019 07:11 AM POTASSIUM POCT - [facility] 4.1 01/11/2019 12:09 PM POTASSIUM-[facility] 3.9 06/12/2021 12:00 AM POTASSIUM-[facility]IDE LAB 3.7 07/10/2020 12:00 AM POTASSIUM-OUTSIDE LAB 3.2 (A) 02/11/2020 12:00 AM Labs done at dialysis center. Patient Active [...] ([facility]) M05.741, M05.742 Primary parkinsonism G20.C History of non-ST elevation myocardial infarction (NSTEMI) I25.2 Venous stasis dermatitis of both lower extremities I87.2 COPD, group B, by GOLD 2017 classification ([facility]) J44.9 Chronic heart failure with preserved ejection fraction ([facility]) I50.32 Iron deficiency anemia due to chronic blood loss D50.0 Diabetes mellitus with ESRD (end-stage renal disease) ([facility]) E11.22, N18.6 Personal history of fall Z91.81 History of CVA (cerebrovascular accident) Z86.73 AVF (arteriovenous fistula) ([facility]) 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[facility]) G20.A1, F02.80 Palliative care encounter Z51.5 Acquired hypothyroidism E03.9 ESRD (end stage renal disease) on dialysis ([facility]) N18.6, Z99.2 Chronic kidney disease-mineral and bone disorder N18.9, E83.9, M89.9 Anemia in end-stage renal disease ([facility]) N18.6, D63.1 Morbid (severe) obesity due to excess calories ([facility]) E66.01 Full code status Z78.9 History of colon polyps Z86.010 Past Medical History: Diagnosis Date (HFpEF) heart failure with preserved ejection fraction ([facility]) Acute on chronic diastolic (congestive) heart failure (HCC) 03/04/2020 [facility] Allergic rhinitis 02/15/2000 acute BMI 38.0-38.9,adult 08/28/2009 Chronic Sinusitis Unspecified Controlled substance agreement signed 11/25/2016 COVID-19 10/23/2021 Cystitis 05/23/2022 admitted [facility] home on cefuroxime Dyslipidemia, goal LDL [...] rheumatoid factor (HCC) 07/18/2016 SDH (subdural hematoma) ([facility]) 04/20/2019 acute Serrated polyp of colon 09/20/2022 7 mm descending colon Sleep apnea Tinnitus 01/2005 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 ([facility]) Past Surgical History: Procedure Laterality Date ARTHROPLASTY KNEE TOTAL Left Dr. Del Real CARPAL TUNNEL SURGERY Bilateral COLONOSCOPY, DIAGNOSTIC (RECTUM) 11/27/2015 normal, repeat 10 yrs/COLONOSCOPY FLEXIBLE PROXIMAL DIAGNOSTIC performed by Garrett Chang MD at ENDOSCOPY [facility] COLONOSCOPY, DIAGNOSTIC (RECTUM) 09/20/2022 serrated polyp, fair prep / [facility] EGD, FLEXIBLE, DIAGNOSTIC 04/19/2022 esophagitis, repeat 8-12 wks / [facility] EGD, FLEXIBLE, DIAGNOSTIC 06/26/2022 normal, retained food / [facility] EXPLORATION OF MAXILLARY SINUS 03/17/1995 Sinus Surgery HYSTEROSCOPY,DIAGNOSTIC 2022 atrophic endometrium, endometrial polyp INJECTION LUMBAR/SACRAL 07/31/2015 INJECTION SPINE LUMBAR OR SACRAL performed by Quincy Prado DO at OR [facility] INJECTION LUMBAR/SACRAL 08/15/2015 INJECTION SPINE LUMBAR OR SACRAL performed by Quincy Prado DO at OR [facility] INSER MARLI CAT,W/O PUMP;5YR/OLD N/A 11/04/2019 INSERT TUNNELED CENTRAL VENOUS CATHETER AGE 6 OR OLDER performed by Ortega Montez DO at OR [facility] INSER MARLI CAT,W/O PUMP;5YR/OLD Right 03/09/2023 INSERT TUNNELED CENTRAL VENOUS CATHETER AGE 5 OR OLDER performed by Fred Brown MD at OR [facility] INTRO CATH DIALYSIS CIRCUIT W/TRANSLUM BALLOON ANGIOPLASTY Right 03/09/2023 AV FISTULOGRAM & PERIPHERAL ANGIOPLASTY performed by Fred Brown MD at OR [facility] LIGATE/CUT OVIDUCT(S) MISCELLANEOUS ORDER ([facility] ONLY) Bilateral Heel surgery MISCELLANEOUS ORDER ([facility] ONLY) Right 3rd toe nerve decompression, Dr. 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 Review of Systems: obtained from pt and [...] dysphagia Musculoskeletal/Extremities ROS: see HPI Skin/Integumentary ROS: see HPI Neurologic ROS: No headaches and No seizures Psychiatric ROS: No depression, No anxiety and No psychosis + dementia Sleep: No sleep disorders OBJECTIVE: PHYSICALEXAM: I reviewed the most recent facilities vitals. General: alert, no distress, well nourished and well developed Eye Exam: Conjunctiva are pink and non-injected, sclera clear Nose: no mucosal erythema, no mucosal edema, no purulent discharge Oropharynx: no exudate, no erythema, lips, buccal mucosa, and tongue normal and mucous membranes are moist Neck: supple, no adenopathy, non-tender, neck veins flat, trachea midline Heart: regular rate & rhythm, no murmurs and no gallops Lungs: normal respiratory rate and rhythm, no chest wall tenderness, lungs clear to auscultation Pulses: radial=2/4, posterior tibial=2/4 Abdomen: abdomen soft, non-tender, normal bowel sounds and no masses or organomegaly Extremities: rheumatoid nodules noted hands and IP joints. Ulnar drift noted. Moderate tenderness to palpation right hand and wrist. Pain with ROM of fingers and wrist. No erythema or rubor. Good pulses RUE Neuro Exam: alert with fluent speech, +PD tremors and rigidity Skin: skin color, texture, turgor are normal, significant skin irritation with bleeding inner thighs, erythema noted Musculoskeletal: moves all extremities with good strength ASSESSMENT: Right hand pain (Primary) Mostly likely due to flare of RA Will obtain xray of hand/wrist to rule out fx Will begin Prednisone 30mg daily times 5 days for now Check CBC with diff, ESR, CRP, uric acid level Localized swelling on right hand Mostly likely due to flare of RA Will obtain xray of hand/wrist to rule out fx Will begin Prednisone 30mg daily times 5 days for now Check CBC with diff, ESR, CRP, uric acid level Dermatitis associated with moisture Magic Mix Q shift Keep area clean and dry 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HCC) Stable Continue Sinemet 25/100mg TID and Sertraline 100mg daily 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 factor (HCC) Will check xray and begin prednisone as directed PLAN: Reviewed CBC, BMP, Lytes and Continue present medication(s):as ordered. Alf Home Treatment Given: as above Electronically signed by: Nae Rodriges PA-C Over 45 minutes were spent in this visit more than half the time was spent counselling or coordinating care. documented in this encounter Plan of Treatment Upcoming Encounters Date Type Department Care Team (Late st Contact Info) Description 06/10/2023 3:00 PM EDT Laboratory Laboratory [address] [place] [phone] [address] [place] [address] 06/16/2023 2:30 PM EDT [facility] [place] [address] [facility] [place] [phone] Cynthia Gonzalez MD [address] [facility] [place] [address] Scheduled Procedures Name Priority Associated Diagnoses Date/Ti me COLONOSCOPY FLEXIBLE PROXIMA L DIAGNOSTIC Recall Encounter for screening colonoscopy Health Maintenance Due Date Last Done Comments Zoster Vaccines (2 of 3) 12/18/2011 10/23/2011 Depression Screening 01/22/2020 01/21/2019 COVID-19 Vaccine (6 2022-2 4 season) 2022 01/17/2022, 07/23/2021, 01/02/2021, [...] as of this encounter Visit Diagnoses Diagnosis Right hand pain- Primary Pain in limb Localized swelling on right hand Dermatitis associated with moisture 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HCC) 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 factor (HCC) documented in this encounter Advance Directives Documents on File Type Date Recorded Patient Outbound Sales Professional Expl anation Power of Conservation Scientist 12/16/2018 10:33 AM Nate r of Conservation Scientist Latest Code Status on File Code Status [...] the patient have Health Care Power of Conservation Scientist? No Healthcare Agents on File Name Relationship Healthcare Agent Relationshi p Communication Wesley Rosa Hassan Spouse Health Care Agent Care Teams Range Examiner Relationship Specialty Start Date End Date Bella Power MD [address] [place] [address] [place] [address] PCP - General Family Medicine 04/02/19 documented as of this encounter
--- OUTSIDE RECORDS SUMMARY | 2023-05-23 20:00 | External Medical Summary ---
Author Name Unknown Address Unknown Organization [facility] [address] [place] [address] Laboratory Report Ordering Provider Test Date Status SIRISHA PRESCOTT 05/14/2023 06:13:00 Final Observation Date Value Abnormality Reference (Units ) Status SYNC LEUKOCYTES IN BLOOD BY AUTOMATED COUNT 05/14/2023 06:13:00 9.60 4.00-10.80 (K/uL) Final Segs 05/14/2023 06:13:00 84.0 Above high normal 40.0-75.0 (%) Final Lymphs % 05/14/2023 06:13:00 10.6 Below low normal 18.0-42.0 (%) Final Monos 05/14/2023 06:13:00 5.2 1.0-11.0 (%) Final Eosinophils 05/14/2023 06:13:00 0.1 0.0-6.0 (%) Final Basos 05/14/2023 06:13:00 0.1 0.0-2.0 (%) Final Absolute Segs 05/14/2023 06:13:00 8.06 Above high normal 1.80-7.70 (K/uL) Final Lymphs, absolute 05/14/2023 06:13:00 1.02 1.00-4.80 (K/ul) Final Monos, Abs 05/14/2023 06:13:00 0.50 0.00-1.10 (K/uL) Final Eos, Abs 05/14/2023 06:13:00 0.01 0.00-0.70 (K/uL) Final Basos, Abs 05/14/2023 06:13:00 0.01 0.00-0.20 (K/uL) Final Performing Location [facility] [place] [address]
--- OUTSIDE RECORDS SUMMARY | 2023-05-23 20:00 | External Medical Summary | Continuity Of Care Document ---
Author Name Unknown Address [address] [place] [address] Organization [facility] ( ) Care Team Providers Care Core Dipper Name Role Phone Howie Gilbert Primary Care Provider [phone] Problems Code Description Start Date End Date [...] 00 / Active M62.81 Muscle weakness (generalized) 03/27/2023 0000/ 0000 Active VITAL SIGNS Date Time Diastolic blood pressure Systolic blood pressure Body height Body weight Temperature SpO2 Blood Sugar Pulse Respirations 116 79929 0 63.00 mm[Hg] - Sitting 135.00 mm[Hg] - Sitting 96.80 Oral 65.00/ min 83776 117 48459 4 130.00 mg/dL 59329 120 17212 0 65.00 mm[Hg] - Sitting 120.00 mm[Hg] - Sitting 98.80 Oral 92.00 % 123.00 mg/dL 69.00/ min 54454 122 02859 8 14201 124 18839 9 231.00 [place] [id number] 124 80465 0 52.00 mm[Hg] - Sitting 104.00 mm[Hg] - Sitting 98.40 Oral 56.00/ min 06420 125 53544 0 54.00 mm[Hg] - Sitting 101.00 mm[Hg] - Sitting 67.00/ min 51040 129 81861 7 231.00 NI [id number] 130 25425 0 66.00 mm[Hg] - Sitting 119.00 mm[Hg] - Sitting 97.20 Oral 71.00/ min 25385 202 45524 0 56.00 mm[Hg] - Sitting 121.00 mm[Hg] - Sitting 98.10 Oral 58.00/ min 06883 205 21972 7 67751 206 00908 3 227.00 NI [id number] 207 47269 1 227.00 NI [id number] 208 49770 0 74.00 mm[Hg] - Sitting 120.00 mm[Hg] - Sitting 65.00/ min 92472 213 55176 0 68.00 mm[Hg] - Sitting 115.00 mm[Hg] - Sitting 75.00/ min Immunizations Vaccine Date Status COVID-19 05/24/2020 Completed COVID-19 06/21/2020 Completed COVID-19 01/02/2021 Completed COVID-19 07/23/2021 Completed COVID-19 07/24/2021 Completed COVID-19 01/17/2022 Completed Influenza 01/01/2023 Completed (PCV13)Pneumococcal 10/28/2014 Completed (PPSV23)Pneumococcal 03/22/2016 Completed Shingles 10/23/2011 Completed TDaP 06/27/2009 Completed
--- OUTSIDE RECORDS SUMMARY | 2023-05-23 20:00 | External Medical Summary | Continuity Of Care Document ---
Author Name Unknown Address [address] [place] [address] Organization [facility] ( ) Care Team Providers Care Music Ministries Director Name Role Phone Howie Gilbert Primary Care Provider [phone] Problems Code Description Start Date End Date [...] Temperature SpO2 Blood Sugar Pulse Respirations 116 71370 0 63.00 mm[Hg] - Sitting 135.00 mm[Hg] - Sitting 96.80 Oral 65.00/ min 73684 117 17603 4 130.00 mg/dL 09198 120 74917 0 65.00 mm[Hg] - Sitting 120.00 mm[Hg] - Sitting 98.80 Oral 92.00 % 123.00 mg/dL 69.00/ min 05600 122 38204 8 84393 124 67572 9 231.00 [place] [id number] 124 58647 0 52.00 mm[Hg] - Sitting 104.00 mm[Hg] - Sitting 98.40 Oral 56.00/ min 32251 125 49233 0 54.00 mm[Hg] - Sitting 101.00 mm[Hg] - Sitting 67.00/ min 22488 129 31629 7 231.00 NI [id number] 130 44594 0 66.00 mm[Hg] - Sitting 119.00 mm[Hg] - Sitting 97.20 Oral 71.00/ min 49503 202 34737 0 56.00 mm[Hg] - Sitting 121.00 mm[Hg] - Sitting 98.10 Oral 58.00/ min 04606 205 21200 7 62825 206 81814 3 227.00 NI 50776 207 30375 1 227.00 NI 76649 208 02503 0 74.00 mm[Hg] - Sitting 120.00 mm[Hg] - Sitting 65.00/ min 05853 213 49333 0 68.00 mm[Hg] - Sitting 115.00 mm[Hg] - Sitting 75.00/ min Immunizations Vaccine Date Status COVID-19 05/24/2020 Completed COVID-19 06/21/2020 Completed COVID-19 01/02/2021 Completed COVID-19 07/23/2021 Completed COVID-19 07/24/2021 Completed COVID-19 01/17/2022 Completed Influenza 01/01/2023 Completed (PCV13)Pneumococcal 10/28/2014 Completed (PPSV23)Pneumococcal 03/22/2016 Completed Shingles 10/23/2011 Completed TDaP 06/27/2009 Completed
--- OUTSIDE RECORDS SUMMARY | 2023-05-23 20:00 | External Medical Summary | Summary of Care ---
Author Name Unknown Organization [facility] Address [address] [place] [place] [place] [address] Phone [phone] Care Team Providers Care Foam Machine Operator Name Role Phone Bella Power MD Primary Care Prov ider Reason for Visit * Reason Onset Date Comments Alf Visit 04/17/2023 Encounter Details Date Type Department Care Team (Latest Contact Info) Description 04/17/2023 6:00 AM EST Alf Visit [facility] [address] [place] [address] Nae Rodriges PA-C [address] [place] [address] Arthritis of right shoulder region*; Contusion of both upper extremities, initial encounter; ESRD (end stage renal disease) on dialysis ([facility]); 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[facility]) Allergies No known active allergiesdocumented as of this encounter (statuses as of 04/17/2023) Medications Medication Sig Dispensed Refills Start Date [...] , group B, by GOLD 2017 classification ([facility]) Inhale via nebulizer. Use as directed. 1 Each 1 11/27/2018 Active DIURETIC TITRATION PLANIndications:Catalyst Manufacturing Operator sandro heart failure with preserved ejection [...] WRAP) 30 g 11 11/09/2022 Active Nystatin 485149 UNIT/GM External Powder (Nystop) Apply topically to [...] as of this encounter (statuses as of 04/17/2023) Active Problems Problem Noted Date Diagnosed Date Full code status 03/27/2023 Morbid (severe) obesity due to excess calories 0 03/19/2023 Chronic kidney disease-mineral and bone disorder 03/10/2023 Anemia in end-stage renal disease 03/10/2023 ESRD (end stage renal disease) on dialysis 03/09 Serrated polyp of colon 09/20/2022 Overview: 7 mm descending colon Acquired hypothyroidism 06/17/2022 Last Assessment & Plan: [...] as of this encounter (statuses as of 04/17/2023) Resolved Problems Problem Noted Date Diagnosed Date Resolved Date Problem with dialysis access 03/09/2023 03/18/2023 UTI (urinary tract infection) 03/09/2023 03/19/2023 BMI 38.0-38.9,adult 09/12/2022 03/19/19 24 Overview: 210 [...] as of this encounter (statuses as of 04/17/2023) Immunizations Name Administration Dates Next Due COVID-19 [...] Care Team (Late st Contact Info) Description 05/07/2023 2:20 PM EST Office Visit Family Medicine [address] [place] [phone] Vianca Kitchen MD [address] [place] [address] [place] [address] 06/10/2023 3:00 PM EDT Laboratory Laboratory [address] [place] [phone] [facility] [address] [place] [address] 06/16/2023 2:30 PM EDT Office Visit Hematology/Oncology [facility] [place] [address] [facility] [place] [address] Cynthia Gonzalez MD [address] [place] [address] Scheduled Procedures Name Priority Associated Diagnoses Date/Ti [...] as of this encounter Visit Diagnoses Diagnosis Arthritis of right shoulder region- Primary Unspecified arthropathy, shoulder region Contusion of both upper extremities, initial encounter ESRD (end stage renal disease) on dialysis (HCC) End stage renal disease 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HCC) documented in this encounter Advance Directives Documents on File Type Date Recorded Patient Groundsman Expl anation Power of Paste Up Worker 12/16/2018 10:33 AM Nate r of Paste Up Worker Latest Code Status on File Code Status [...] the patient have Health Care Power of Paste Up Worker? No Healthcare Agents on File Name Relationship Healthcare Agent Relationshi p Communication Wesley Hassan Spouse Health Care Agent Care Teams Foam Machine Operator Relationship Specialty Start Date End Date Bella Power MD [address] [place] [address] [place] [phone] PCP - General Family Medicine 04/02/19 documented as of this encounter
--- OUTSIDE RECORDS SUMMARY | 2023-05-23 20:00 | External Medical Summary | Continuity Of Care Document ---
Author Name Unknown Address [address] [place] [address] Organization [facility] ( ) Care Team Providers Care Novelty Candy Maker Name Role Phone Howie Gilbert Primary Care Provider [phone] Problems Code Description Start Date End Date [...] Temperature SpO2 Blood Sugar Pulse Respirations 116 86604 0 63.00 mm[Hg] - Sitting 135.00 mm[Hg] - Sitting 96.80 Oral 65.00/ min 71790 117 79732 4 130.00 mg/dL 46210 120 94733 0 65.00 mm[Hg] - Sitting 120.00 mm[Hg] - Sitting 98.80 Oral 92.00 % 123.00 mg/dL 69.00/ min 44121 122 31202 8 00815 124 26927 9 231.00 NI 92477 124 28066 0 52.00 mm[Hg] - Sitting 104.00 mm[Hg] - Sitting 98.40 Oral 56.00/ min 78864 125 84454 0 54.00 mm[Hg] - Sitting 101.00 mm[Hg] - Sitting 67.00/ min 33527 129 83226 7 231.00 NI [id number] 130 76482 0 66.00 mm[Hg] - Sitting 119.00 mm[Hg] - Sitting 97.20 Oral 71.00/ min 52168 202 02534 0 56.00 mm[Hg] - Sitting 121.00 mm[Hg] - Sitting 98.10 Oral 58.00/ min 07239 205 43722 7 42859 206 99465 3 227.00 NI [id number] 207 30541 1 227.00 NI [id number] 208 37046 0 74.00 mm[Hg] - Sitting 120.00 mm[Hg] - Sitting 65.00/ min 68372 213 47437 0 68.00 mm[Hg] - Sitting 115.00 mm[Hg] - Sitting 75.00/ min Immunizations Vaccine Date Status COVID-19 05/24/2020 Completed COVID-19 06/21/2020 Completed COVID-19 01/02/2021 Completed COVID-19 07/23/2021 Completed COVID-19 07/24/2021 Completed COVID-19 01/17/2022 Completed Influenza 01/01/2023 Completed (PCV13)Pneumococcal 10/28/2014 Completed (PPSV23)Pneumococcal 03/22/2016 Completed Shingles 10/23/2011 Completed TDaP 06/27/2009 Completed
--- OUTSIDE RECORDS SUMMARY | 2023-05-23 20:00 | External Medical Summary | Continuity Of Care Document ---
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 03/18/2023 Act ulcho I11.0 Hypertensive heart disease with heart failure [...] weight Temperature SpO2 Blood Sugar Pulse Respirations 78559 115 42381 4 238.00 [place] 59044 116 99501 0 63.00 mm[Hg] - Sitting 135.00 mm[Hg] - Sitting 96.80 Oral 65.00/ min 74753 117 99113 4 130.00 mg/dL 92837 120 16301 0 65.00 mm[Hg] - Sitting 120.00 mm[Hg] - Sitting 98.80 Oral 92.00 % 123.00 mg/dL 69.00/ min 87300 122 25389 8 71163 124 95747 9 231.00 NI 29067 124 57020 0 52.00 mm[Hg] - Sitting 104.00 mm[Hg] - Sitting 98.40 Oral 56.00/ min 06984 125 41375 0 54.00 mm[Hg] - Sitting 101.00 mm[Hg] - Sitting 67.00/ min 69687 129 21077 7 231.00 NI 59357 130 02523 0 66.00 mm[Hg] - Sitting 119.00 mm[Hg] - Sitting 97.20 Oral 71.00/ min 06574 202 20390 0 56.00 mm[Hg] - Sitting 121.00 mm[Hg] - Sitting 98.10 Oral 58.00/ min 75171 205 48844 7 51214 206 22407 3 227.00 NI 22447 207 77379 1 227.00 NI 30117 208 62607 0 65.00/ min Immunizations Vaccine Date Status COVID-19 05/24/2020 Completed COVID-19 06/21/2020 Completed COVID-19 01/02/2021 Completed COVID-19 07/23/2021 Completed COVID-19 07/24/2021 Completed COVID-19 01/17/2022 Completed Influenza 01/01/2023 Completed (PCV13)Pneumococcal 10/28/2014 Completed (PPSV23)Pneumococcal 03/22/2016 Completed Shingles 10/23/2011 Completed TDaP 06/27/2009 Completed
--- OUTSIDE RECORDS SUMMARY | 2023-05-23 20:00 | External Medical Summary | Continuity Of Care Document ---
Author Name Unknown Address [address] [place] [address] Organization 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00 mg/dL 21549 120 38999 0 65.00 mm[Hg] - Sitting 120.00 mm[Hg] - Sitting 98.80 Oral 92.00 % 123.00 mg/dL 69.00/ min 85438 122 65110 8 25654 124 67942 9 231.00 NI 78536 124 91985 0 52.00 mm[Hg] - Sitting 104.00 mm[Hg] - Sitting 98.40 Oral 56.00/ min 41552 125 84818 0 54.00 mm[Hg] - Sitting 101.00 mm[Hg] - Sitting 67.00/ min 88055 129 46193 7 231.00 NI 95009 130 60225 0 66.00 mm[Hg] - Sitting 119.00 mm[Hg] - Sitting 97.20 Oral 71.00/ min 37127 202 78232 0 56.00 mm[Hg] - Sitting 121.00 mm[Hg] - Sitting 98.10 Oral 58.00/ min 00794 205 74069 7 33437 206 05720 3 227.00 NI 37597 207 76079 1 227.00 NI Immunizations Vaccine Date Status COVID-19 05/24/2020 Completed COVID-19 06/21/2020 Completed COVID-19 01/02/2021 Completed COVID-19 07/23/2021 Completed COVID-19 07/24/2021 Completed COVID-19 01/17/2022 Completed Influenza 01/01/2023 Completed (PCV13)Pneumococcal 10/28/2014 Completed (PPSV23)Pneumococcal 03/22/2016 Completed Shingles 10/23/2011 Completed TDaP 06/27/2009 Completed
--- OUTSIDE RECORDS SUMMARY | 2023-05-23 20:00 | External Medical Summary | Continuity Of Care Document ---
Author Name Unknown Address [address] [place] [address] Organization [facility] ( ) Care Team Providers Care [employer] Field Technician Name Role Phone Howie Gilbert Primary Care Provider [phone] Problems Code Description Start Date End Date [...] Temperature SpO2 Blood Sugar Pulse Respirations 116 13719 0 63.00 mm[Hg] - Sitting 135.00 mm[Hg] - Sitting 96.80 Oral 65.00/ min 16774 117 22321 4 130.00 mg/dL 99060 120 25532 0 65.00 mm[Hg] - Sitting 120.00 mm[Hg] - Sitting 98.80 Oral 92.00 % 123.00 mg/dL 69.00/ min 87226 122 91556 8 98750 124 04909 9 231.00 NI 90506 124 33806 0 52.00 mm[Hg] - Sitting 104.00 mm[Hg] - Sitting 98.40 Oral 56.00/ min 46479 125 85590 0 54.00 mm[Hg] - Sitting 101.00 mm[Hg] - Sitting 67.00/ min 02482 129 84028 7 231.00 NI 61823 130 90901 0 66.00 mm[Hg] - Sitting 119.00 mm[Hg] - Sitting 97.20 Oral 71.00/ min 74318 202 54788 0 56.00 mm[Hg] - Sitting 121.00 mm[Hg] - Sitting 98.10 Oral 58.00/ min 06319 205 79445 7 82303 206 61508 3 227.00 NI 43650 207 04090 1 227.00 NI 96517 208 61101 0 74.00 mm[Hg] - Sitting 120.00 mm[Hg] - Sitting 65.00/ min 83343 213 15186 0 68.00 mm[Hg] - Sitting 115.00 mm[Hg] - Sitting 75.00/ min Immunizations Vaccine Date Status COVID-19 05/24/2020 Completed COVID-19 06/21/2020 Completed COVID-19 01/02/2021 Completed COVID-19 07/23/2021 Completed COVID-19 07/24/2021 Completed COVID-19 01/17/2022 Completed Influenza 01/01/2023 Completed (PCV13)Pneumococcal 10/28/2014 Completed (PPSV23)Pneumococcal 03/22/2016 Completed Shingles 10/23/2011 Completed TDaP 06/27/2009 Completed
--- OUTSIDE RECORDS SUMMARY | 2023-05-23 20:00 | External Medical Summary | Continuity Of Care Document ---
Author Name Unknown Address [address] [place] [address] Organization [facility] ( ) Care Team Providers Care Title Investigator Name Role Phone Howie Gilbert Primary Care Provider [phone] Problems Code Description Start Date End Date [...] weight Temperature SpO2 Blood Sugar Pulse Respirations 115 33635 4 238.00 NI 59958 116 65396 0 63.00 mm[Hg] - Sitting 135.00 mm[Hg] - Sitting 96.80 Oral 65.00/ min 26561 117 24307 4 130.00 mg/dL 63692 120 34513 0 65.00 mm[Hg] - Sitting 120.00 mm[Hg] - Sitting 98.80 Oral 92.00 % 123.00 mg/dL 69.00/ min 30242 122 23397 8 03574 124 47618 9 231.00 NI 30275 124 49380 0 52.00 mm[Hg] - Sitting 104.00 mm[Hg] - Sitting 98.40 Oral 56.00/ min 68320 125 48901 0 54.00 mm[Hg] - Sitting 101.00 mm[Hg] - Sitting 67.00/ min 08892 129 76049 7 231.00 NI 44456 130 03753 0 66.00 mm[Hg] - Sitting 119.00 mm[Hg] - Sitting 97.20 Oral 71.00/ min 50040 202 31580 0 56.00 mm[Hg] - Sitting 121.00 mm[Hg] - Sitting 98.10 Oral 58.00/ min 39617 205 20527 7 75805 206 10685 3 227.00 NI 22103 207 09618 1 227.00 NI 25848 208 27446 0 74.00 mm[Hg] - Sitting 120.00 mm[Hg] - Sitting 65.00/ min Immunizations Vaccine Date Status COVID-19 05/24/2020 Completed COVID-19 06/21/2020 Completed COVID-19 01/02/2021 Completed COVID-19 07/23/2021 Completed COVID-19 07/24/2021 Completed COVID-19 01/17/2022 Completed Influenza 01/01/2023 Completed (PCV13)Pneumococcal 10/28/2014 Completed (PPSV23)Pneumococcal 03/22/2016 Completed Shingles 10/23/2011 Completed TDaP 06/27/2009 Completed
--- OUTSIDE RECORDS SUMMARY | 2023-05-23 20:00 | External Medical Summary | Continuity Of Care Document ---
Author Name Unknown Address [address] [place] [address] Organization [facility] ( ) Care Team Providers Care Rn Spine Name Role Phone Howie Gilbert Primary Care Provider [phone] Problems Code Description Start Date End Date [...] Temperature SpO2 Blood Sugar Pulse Respirations 116 70757 0 63.00 mm[Hg] - Sitting 135.00 mm[Hg] - Sitting 96.80 Oral 65.00/ min 16060 117 68101 4 130.00 mg/dL 56862 120 74592 0 65.00 mm[Hg] - Sitting 120.00 mm[Hg] - Sitting 98.80 Oral 92.00 % 123.00 mg/dL 69.00/ min 49892 122 55020 8 50996 124 65184 9 231.00 NI 08191 124 90228 0 52.00 mm[Hg] - Sitting 104.00 mm[Hg] - Sitting 98.40 Oral 56.00/ min 94048 125 96815 0 54.00 mm[Hg] - Sitting 101.00 mm[Hg] - Sitting 67.00/ min 43493 129 39880 7 231.00 NI 29679 130 75745 0 66.00 mm[Hg] - Sitting 119.00 mm[Hg] - Sitting 97.20 Oral 71.00/ min 41517 202 05288 0 56.00 mm[Hg] - Sitting 121.00 mm[Hg] - Sitting 98.10 Oral 58.00/ min 50241 205 56471 7 99966 206 78730 3 227.00 NI 40137 207 57238 1 227.00 NI 10466 208 86217 0 74.00 mm[Hg] - Sitting 120.00 mm[Hg] - Sitting 65.00/ min 09890 213 19928 0 68.00 mm[Hg] - Sitting 115.00 mm[Hg] - Sitting 75.00/ min Immunizations Vaccine Date Status COVID-19 05/24/2020 Completed COVID-19 06/21/2020 Completed COVID-19 01/02/2021 Completed COVID-19 07/23/2021 Completed COVID-19 07/24/2021 Completed COVID-19 01/17/2022 Completed Influenza 01/01/2023 Completed (PCV13)Pneumococcal 10/28/2014 Completed (PPSV23)Pneumococcal 03/22/2016 Completed Shingles 10/23/2011 Completed TDaP 06/27/2009 Completed
--- OUTSIDE RECORDS SUMMARY | 2023-05-23 20:00 | External Medical Summary | Summary of Care ---
Author Name Unknown Organization [facility] Address [address] [place] [place] [place] [address] Phone [phone] Care Team Providers Care Home Worker Name Role Phone Bella Power MD Primary Care Prov ider Reason for Visit * Reason Onset Date Comments Fdc Visit 04/15/2023 Regulatory Encounter Details Date Type Department Care Team (Latest Contact Info) Description 04/15/2023 11:30 AM EST Fdc Visit [facility] [address] [place] [address] Nae Rodriges PA-C [address] [place] [address] ESRD (end stage renal disease) on dialysis ([facility])*; Diabetes mellitus with ESRD (end-stage renal disease) ([facility]); 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[facility]); COPD, group B, by GOLD 2017 classification ([facility]); Anemia in end-stage renal disease ([facility]); Acquired hypothyroidism; Acute pain of right shoulder Allergies No known active allergiesdocumented as of this encounter (statuses as of 04/15/2023) Medications Medication Sig Dispensed Refills Start Date [...] 1 Each 1 11/27/2018 Active DIURETIC TITRATION PLANIndications:Operations Support Specialist sandro heart failure with preserved ejection [...] WRAP) 30 g 11 11/09/2022 Active Nystatin 144526 UNIT/GM External Powder (Nystop) Apply topically to [...] as of this encounter (statuses as of 04/15/2023) Active Problems Problem Noted Date Diagnosed Date [...] as of this encounter (statuses as of 04/15/2023) Resolved Problems Problem Noted Date Diagnosed Date [...] as of this encounter (statuses as of 04/15/2023) Immunizations Name Administration Dates Next Due COVID-19 [...] Progress Notes * Nae Rodriges PA-C - 04/15/2023 1:15 PM EST REGULATORY VISIT TRANSITION EVENT: Type: Regulatory visit Date: April 15 Code Status: Full Code Name: Kami Hassan Date of : 1945 This note pertains to care provided at [facility]. Please see facility medical record for original note. This note is not to be edited or addended in [employer]. Editing or addending needs to occur in the facilities medical record. S: Kami Hassan seen today as part of a regulatory visit. Has history of : Patient Active Problem List Diagnosis Code ADVANCE DIRECTIVE INFORMATION Meniere's disease, cochlear, active H81.09 Hypothyroidism due to acquired atrophy of thyroid E03.4 Steatohepatitis, non-alcoholic K75.81 Obesity E66.9 Restless leg syndrome G25.81 Dyslipidemia, goal LDL below 100 E78.5 AYSHA (generalized anxiety disorder) F41.1 RENÉ on CPAP G47.33 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 factor ([facility]) M05.741, M05.742 Primary parkinsonism G20.C History of non-ST elevation myocardial infarction (NSTEMI) I25.2 Venous stasis dermatitis of both lower extremities I87.2 COPD, group B, by GOLD 2017 classification ([facility]) J44.9 Chronic heart failure with preserved ejection fraction ([facility]) I50.32 Iron deficiency anemia due to chronic blood loss D50.0 Diabetes mellitus with ESRD (end-stage renal disease) ([facility]) E11.22, N18.6 Personal history of fall Z91.81 History of CVA (cerebrovascular accident) Z86.73 AVF (arteriovenous fistula) ([facility]) 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[facility]) G20.A1, F02.80 Palliative care encounter Z51.5 Acquired hypothyroidism E03.9 Serrated polyp of colon K63.5 ESRD (end stage renal disease) on dialysis ([facility]) N18.6, Z99.2 Chronic kidney disease-mineral and bone disorder N18.9, E83.9, M89.9 Anemia in end-stage renal disease ([facility]) N18.6, D63.1 Morbid (severe) obesity due to excess calories ([facility]) E66.01 Full code status Z78.9 Past Medical History: Diagnosis Date (HFpEF) heart failure with preserved ejection fraction ([facility]) Acute on chronic diastolic (congestive) heart failure ([facility]) 03/04/2020 [facility] Allergic rhinitis 02/15/2000 acute BMI 38.0-38.9,adult 08/28/2009 Chronic Sinusitis Unspecified Controlled substance agreement signed 11/25/2016 COVID-19 10/23/2021 Cystitis 05/23/2022 admitted [facility] home on cefuroxime Dyslipidemia, goal LDL below 100 Esophagitis determined by biopsy 04/19/2022 LA grade B esophagitis, inflammation gastric antrum, body and duodenum AYSHA (generalized anxiety disorder) Hearing loss, sensorineural 01/2005 History of non-ST elevation myocardial infarction (NSTEMI) 08/24/2018 HTN (hypertension) Meniere's disease Multiple falls 04/20/2019 History of falls on the pl NSTEMI (non-ST elevated myocardial infarction) ([facility]) 09/03/2018 Parkinson disease Rectal bleeding Restless leg syndrome 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 factor ([facility]) 07/18/2016 SDH (subdural hematoma) ([facility]) 04/20/2019 acute Serrated polyp of colon 09/20/2022 7 mm descending colon Sleep apnea Tinnitus 01/2005 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 Del Real CARPAL TUNNEL SURGERY Bilateral COLONOSCOPY, DIAGNOSTIC (RECTUM) 11/27/2015 normal, repeat 10 yrs/COLONOSCOPY FLEXIBLE PROXIMAL DIAGNOSTIC performed by Garrett Chang MD at ENDOSCOPY [facility] COLONOSCOPY, DIAGNOSTIC (RECTUM) 09/20/2022 serrated polyp, fair prep / [facility] EGD, FLEXIBLE, DIAGNOSTIC 04/19/2022 esophagitis, repeat 8-12 wks / [facility] EGD, FLEXIBLE, DIAGNOSTIC 06/26/2022 normal, retained food / [facility] EXPLORATION OF MAXILLARY SINUS 03/17/1995 Sinus Surgery HYSTEROSCOPY,DIAGNOSTIC 2022 atrophic endometrium, endometrial polyp INJECTION LUMBAR/SACRAL 07/31/2015 INJECTION SPINE LUMBAR OR SACRAL performed by [place] Jenni Prado DO at OR [facility] INJECTION LUMBAR/SACRAL 08/15/2015 INJECTION SPINE LUMBAR OR SACRAL performed by [place] Jenni Prado DO at OR [facility] MARLI CAT,W/O PUMP;5YR/OLD N/A 11/04/2019 INSERT TUNNELED CENTRAL VENOUS CATHETER AGE 6 OR OLDER performed by Ortega Montez DO at OR [facility] MAR[place] CAT,W/O PUMP;5YR/OLD Right 03/09/2023 INSERT TUNNELED CENTRAL VENOUS CATHETER AGE 6 OR OLDER performed by Fred Brown MD at OR [facility] INTRO CATH DIALYSIS CIRCUIT W/TRANSLUM BALLOON ANGIOPLASTY Right 03/09/2023 AV FISTULOGRAM & PERIPHERAL ANGIOPLASTY performed by Fred Brown MD at OR [facility] LIGATE/CUT OVIDUCT(S) MISCELLANEOUS ORDER ([facility] ONLY) Bilateral Heel surgery MISCELLANEOUS ORDER ([facility]) Right 3rd toe nerve decompression, Dr. [...] Types: Cigarettes Quit date: 04/20/1989 Years since quittin.0 Smokeless tobacco: Never Tobacco comments: smoked since 19 years of age. Smokes a pack every 3-4 days. 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 Current problems include pt c/o right shoulder pain and stiffness. No hx of fall. No swelling, redness or warmth. Pain raising arm above head. Pt is poor historiandue to dementia. . Is not having pain issues. Is not having behavioral problems. CBC Results: Results for orders placed or [...] POTASSIUM-OUTSIDE LAB 3.2 (A) 02/11/2020 12:00 AM Sodium Results: Lab Results Component Value Date/Time SODIUM - [facility] 131 (L) 03/18/2023 08:00 AM SODIUM - [facility] 134 (L) 03/16/2023 05:05 AM SODIUM - [facility] 136 03/15/2023 05:56 AM SODIUM - [facility] 145 10/27/2019 10:00 AM SODIUM - [facility] 144 10/22/2019 12:02 PM SODIUM - [facility] 143 10/14/2019 03:46 PM SODIUM POCT - [facility] 141 04/25/2019 07:11 AM SODIUM POCT - [facility] 142 01/11/2019 12:09 PM Lipid Panel Results: Results for orders placed or performed in visit on 10/04/22 LIPID PANEL WITH DIRECT LDL IF TG IS HIGH Result Value Ref Range Triglycerides 135 <=174 mg/dL Cholesterol 135 <200 mg/dL HDL Cholesterol 63 >49 mg/dL Non-HDL Cholesterol 72 <=159 mg/dL LDL Cholesterol 45 <=129 mg/dL AST Results: Lab Results Component Value Date/Time AST 20 06/24/1996 04:55 PM AST - [facility] 21 02/24/2023 01:13 PM AST - [facility] 31 08/10/2022 01:48 PM AST - [facility] 13 10/05/2019 11:14 AM AST - [facility] 28 04/20/2019 06:53 PM AST - [facility] 23 08/01/2018 02:00 PM ALT Results: Lab Results Component Value Date/Time ALT - [facility] <5 (L) 02/24/2023 01:13 PM ALT - [facility] 21 08/10/2022 01:48 PM ALT - [facility] 6 (L) 10/05/2019 11:14 AM ALT - [facility] 12 08/01/2018 02:00 PM ALT - [facility] 17 05/01/2018 02:07 PM Hemoglobin AIC Results: Lab Results Component Value Date/Time HEMOGLOBIN A1C - [facility] 4.9 03/09/2023 06:04 AM HEMOGLOBIN A1C - [facility] 5.3 05/31/2021 03:04 PM HEMOGLOBIN A1C - [facility] 5.2 08/21/2020 01:14 PM HEMOGLOBIN A1C - [facility] 5.1 03/23/2019 04:45 PM HEMOGLOBIN A1C - [facility] 4.9 05/01/2018 02:07 PM HEMOGLOBIN A1C - [facility] 5.3 10/13/2017 01:44 PM VITAMIN D 25 OH D2 Date Value 05/21/2008 18 ng/mL 05/21/2008 (NOTE) 25-OHD3 indicates both endogenous production and supplementation. 25-OHD2 is an indicator of exogenous sources such as diet or supplementation. Therapy is based on measurement of Total 25-OHD, with levels <20 ng/mL indicative of Vitamin D deficiency while levels between 20 ng/mL and 30 ng/mL suggest insufficiency. Optimal levels are >30 ng/mL. 08/27/2007 <4 08/27/2007 Unit: ng/mL 08/27/2007 (NOTE) 25-OHD3 indicates both endogenous production and supplementation. 25-OHD2 is an indicator of exogenous sources such as diet or supplementation. Therapy is based on measurement of Total 25-OHD, with levels <20 ng/mL indicative of Vitamin D deficiency while levels between 20 ng/mL and 30 ng/mL suggest insufficiency. Optimal levels are >30 ng/mL. VITAMIN D 25 OH D3 Date Value 05/21/2008 13 ng/mL 08/27/200708/27/2007 Unit: ng/mL VITAMIN D 25 TOTAL Date Value 05/21/2008 31 ng/mL 08/27/200708/27/2007 Reference range: 20 to 100Unit: ng/mL 25OH VITAMIN D TOTAL (ng/mL) Date Value 09/13/2019 11 (L) Vitamin D Level Interpretation deficient: <20 ng/ml insufficient: 20-30 ng/ml normal: 31-100 ng/ml TSH Results: Lab Results Component Value Date/Time TSH - [facility] 1.56 08/10/2022 01:48 PM TSH - [facility] 2.16 05/31/2021 03:04 PM TSH - [facility] 0.42 08/21/2020 01:14 PM TSH - [facility] 2.61 02/25/2019 03:48 PM TSH - [facility] 1.27 08/01/2018 02:00 PM TSH - [facility] 5.31 (H) 05/30/2017 04:23 PM TSH - OUTSIDE LAB 0.617 01/30/2020 12:00 AM ROS: obtained from pt and staff CONSTITUTIONAL: No change in weight, No weakness, No fatigue, and No fevers, sweats, or chills EARS: No ear pain, No drainage, No tinnitus or vertigo, and No recent change in hearing NOSE: No history of frequent colds or sinusitis, No nasal stuffiness, No history of Hay Fever, and No significant epistaxis MOUTH: No bleeding gums, No thrush, or No sore throat PULMONARY: No cough, sputum, or hemoptysis, No wheezing, No rales, No shortness of breath, and No recent change in breathing CARDIOVASCULAR: No chest pain, No shortness of breath, No dyspnea on exertion, No orthopnea, No paroxysmal nocturnal dyspnea, No edema, No palpitations, and No syncope GASTROINTESTINAL: No abdominal pain, No change in bowel habits, No significant heartburn, No significant change in appetite, No nausea, vomiting, diarrhea, or constipation, No hematemesis, No blood in stools or black tarry stools, No abdominal bloating or early satiety, and No dysphagia EXTREMITIES: see HPI SKIN/INTEGUMENTARY: No edema, No rash, and No itching PSYCHIATRIC: No depression, No anxiety, No psychosis, and + dementia O: I reviewed the most recent facilities vitals. General: alert, healthy, and no distress Neuro: alert with fluent speech, PD tremors and rigidity continues Ears: External ears normal, Canals clear, TM's Normal Nose: no mucosal erythema, no mucosal edema, no purulent discharge Oropharynx: no exudate, no erythema, lips, buccal mucosa, and tongue normal, and mucous membranes are moist Neck: supple, no adenopathy, no JVD, thyroid normal size, non-tender, without nodularity Heart: regular rate & rhythm, no murmur, and no gallops Lungs: chest symmetric with normal AP diameter, no chest deformities noted, no chest wall tenderness, lungs clear to auscultation Abdomen: abdomen soft, non-tender, obese, normal bowel sounds, and no masses or organomegaly Extremities: no edema, no skin discoloration, no clubbing, no cyanosis, tender AC and GH joint right shoulder painful arc of motion A: ESRD (end stage renal disease) on dialysis (HCC) (Primary) Continue with dialysis as directed Labs drawn and monitored at dialysis center Diabetes mellitus with ESRD (end-stage renal disease) ([facility]) Stable glucoses A1C 4.9% 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[facility]) Stable mood and mentation Continue Sertraline 100mg daily COPD, group B, by GOLD 2017 classification ([facility]) Stable breathing Continue Fluticasone/Vilanterol 200/25mcg daily Anemia in end-stage renal disease ([facility]) Stable H/H Continue to monitor Acquired hypothyroidism Therapeutic Continue Levoxyl 125mcg daily Acute pain of right shoulder Will obtain xray of right shoulder Moist heat and Icy Hot TID times 7 days Will follow P: Medications reviewed. Please refer to MAR in the facility's medical record for the most up-to-date medication list. Continue present medication(s): Reviewed fdc record for: vital signs, weight, bowel, and bladder function, and ADLs. Labs reviewed Continue current treatment plan as ordered Continue to follow up as needed and as scheduled [facility]-Way Home Treatment Given: as above documented in this encounter Plan of Treatment Upcoming Encounters Date Type Department Care Team (Late st Contact Info) Description 05/07/2023 2:20 PM EST Office Visit Family Medicine [address] [place] [phone] Vianca Kitchen MD [address] [place] [address] [place] [id number] 06/10/2023 3:00 PM EDT Laboratory Laboratory [address] [place] [phone] [facility] [address] [place] [id number] 06/16/2023 2:30 PM EDT Office Visit Hematology/Oncology [place] [address] [place] [id number] Cynthia Gonzalez MD [address] [place] [id number] Scheduled Procedures Name Priority Associated Diagnoses Date/Ti [...] AST YEAR FOR COPD 03/09/2024 03/09/2023 Diabetic Eye Exam Discontinued 06/19/2020, , 12/25/2016, Additional history exists Diabetic Foot Exam Discontinued 08/16/2020, 0 08/26/2019, 08/04/2018, Additional history exists Colonoscopy Discontinued 09/20/2022, 11/15, 11/27/2015, Additional history exists Colorectal Cancer Screening Discontinued Cologuard Discontinued Fecal Occult Blood Test Discontinued Sigmoidoscopy Discontinued documented as of this encounter Medical Devices Not on filedocumented as of this encounter Visit Diagnoses Diagnosis ESRD (end stage renal disease) on dialysis (HCC)- Primary End stage renal disease 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) Type II or unspecified type diabetes mellitus with renal manifestations, not stated as uncontrolled 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HCC) COPD, group B, by GOLD 2017 classification (HCC) Anemia in end-stage renal disease (HCC) Anemia in chronic kidney disease Acquired hypothyroidism Unspecified hypothyroidism Acute pain of right shoulder documented in this encounter Advance Directives Documents on File Type Date Recorded 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 No Healthcare Agents on File Name Relationship Healthcare Agent [facility] Wesley Hassan Spouse Health Care Agent Care Teams Home Worker Relationship Specialty Start Date End Date Bella Power MD [address] [place] [address] [place] [id number] PCP - General Family Medicine 04/02/19 documented as of this encounter
--- OUTSIDE RECORDS SUMMARY | 2023-05-23 20:01 | External Medical Summary | Summary of Care ---
Author Name Unknown Organization [facility] Address [address] [facility] [address] Phone [phone] Care Team Providers Care Financial Planning Assistant Name Role Phone Bella Power MD Primary Care Prov ider Reason for Visit * Reason Onset Date Comments Mcc Visit 04/03/2023 Encounter Details Date Type Department Care Team (Latest Contact Info) Description 04/03/2023 8:00 AM EST Mcc Visit [facility] [address] [place] [address] Nae Rodriges PA-C [address] [place] [address] Candidal vulvovaginitis* Allergies No known active allergiesdocumented as of this encounter (statuses as of 04/03/2023) Medications Medication Sig Dispensed Refills Start Date [...] directed. 1 Each 11/27/2018 Active DIURETIC TITRATION PLANIndications:Exchange Trouble Shooter sandro heart failure with preserved ejection fraction [...] WRAP) 30 g 11 11/09/2022 Active Nystatin 849464 UNIT/GM External Powder (Nystop) Apply topically to [...] as of this encounter (statuses as of 04/03/2023) Active Problems Problem Noted Date Diagnosed Date [...] as of this encounter (statuses as of 04/03/2023) Resolved Problems Problem Noted Date Diagnosed Date [...] as of this encounter (statuses as of 04/03/2023) Immunizations Name Administration Dates Next Due COVID-19 mRNA, LNP-s, No Pre serve, 2-Dose Series ([employer]) 01/02/2021,06/21/2020,05/24/2020 COVID-19, mRNA, LNP-s, PF, B ooster, [...] Progress Notes * Nae Rodriges PA-C - 04/03/2023 12:59 PM EST Name: Kami Hassan Date of :1945 TRANSITION EVENT: Type: Non-applicable Date: April 03 Code Status: Full Code This note pertains to care provided at [facility]. Please see facility medical record for original note. This note is not to be edited or addended in [employer]. Editing or addending needs to occur in the facilities medical record. Subjective: Kami Hassan is a 77 year old female. Patient being seen for genital rash and ? discharge Chief Complaint Patient presents with Mcc Visit HPI: I was asked to assess pt for reddened, excoriated perineal area and external genitalia. ? Discharge noted. No new soaps, medications, detergents. Pt is incontinent at times. She is very sedentary. No chills or fever. Labs done at dialysis center. Patient Active Problem List Diagnosis Code ADVANCE DIRECTIVE INFORMATION Meniere's disease, cochlear, active H81.09 Hypothyroidism due to acquired atrophy of thyroid E03.4 Steatohepatitis, non-alcoholic K75.81 Obesity E66.9 Restless leg syndrome G25.81 Dyslipidemia, goal LDL below 100 E78.5 AYSHA (generalized anxiety disorder) F41.1 RENÉ on CPAP G47.33 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 factor ([facility]) M05.741, M05.742 Primary parkinsonism G20.C History of non-ST elevation myocardial infarction (NSTEMI) I25.2 Venous stasis dermatitis of both lower extremities I87.2 COPD, group B, by GOLD 2017 classification ([facility]) J44.9 Chronic heart failure with preserved ejection fraction ([facility]) I50.32 Iron deficiency anemia due to chronic blood loss D50.0 Diabetes mellitus with ESRD (end-stage renal disease) ([facility]) E11.22, N18.6 Personal history of fall Z91.81 History of CVA (cerebrovascular accident) Z86.73 AVF (arteriovenous fistula) ([facility]) 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[facility]) G20.A1, F02.80 Palliative care encounter Z51.5 Acquired hypothyroidism E03.9 Serrated polyp of colon K63.5 ESRD (end stage renal disease) on dialysis ([facility]) N18.6, Z99.2 Chronic kidney disease-mineral and bone disorder N18.9, E83.9, M89.9 Anemia in end-stage renal disease ([facility]) N18.6, D63.1 Morbid (severe) obesity due to excess calories ([facility]) E66.01 Full code status Z78.9 Past Medical History: Diagnosis Date (HFpEF) heart failure with preserved ejection fraction ([facility]) Acute on chronic diastolic (congestive) heart failure ([facility]) 03/04/2020 [facility] Allergic rhinitis 02/15/2000 acute BMI 38.0-38.9,adult 08/28/2009 Chronic Sinusitis Unspecified Controlled substance agreement signed 11/25/2016 COVID-19 10/23/2021 Cystitis 05/23/2022 admitted [facility] home on cefuroxime Dyslipidemia, goal [...] diabetes mellitus with autonomic dysfunction ([facility]) Past Surgical History: Procedure Laterality Date ARTHROPLASTY KNEE TOTAL Left Dr. Del Real CARPAL TUNNEL SURGERY Bilateral COLONOSCOPY, DIAGNOSTIC (RECTUM) 11/27/2015 normal, repeat 10 yrs/COLONOSCOPY FLEXIBLE PROXIMAL DIAGNOSTIC performed by Garrett Chang MD at ENDOSCOPY [facility] COLONOSCOPY, DIAGNOSTIC (RECTUM) 09/20/2022 serrated polyp, fair prep / [facility] EGD, FLEXIBLE, DIAGNOSTIC 04/19/2022 esophagitis, repeat 8-12 wks / [facility] EGD, FLEXIBLE, DIAGNOSTIC 06/26/2022 normal, retained food / [facility] EXPLORATION OF MAXILLARY SINUS 03/17/1995 Sinus Surgery HYSTEROSCOPY,DIAGNOSTIC 2022 atrophic endometrium, endometrial polyp INJECTION LUMBAR/SACRAL 07/31/2015 INJECTION SPINE LUMBAR OR SACRAL performed by Quincy Prado DO at OR [facility] INJECTION LUMBAR/SACRAL 08/15/2015 INJECTION SPINE LUMBAR OR SACRAL performed by Quincy Prado DO at OR [facility] INSER MARLI CAT,W/O PUMP;5YR/OLD N/A 11/04/2019 INSERT TUNNELED CENTRAL VENOUS CATHETER AGE 5 OR OLDER performed by Ortega Montez DO at OR [facility] INSER MARLI CAT,W/O PUMP;5YR/OLD Right 03/09/2023 INSERT TUNNELED CENTRAL VENOUS CATHETER AGE 5 OR OLDER performed by Fred Brown MD at OR [facility] INTRO CATH DIALYSIS CIRCUIT W/TRANSLUM BALLOON ANGIOPLASTY Right 03/09/2023 AV FISTULOGRAM & PERIPHERAL ANGIOPLASTY performed by Fred Brown MD at OR [facility] LIGATE/CUT OVIDUCT(S) MISCELLANEOUS ORDER ([facility] ONLY) Bilateral [...] Types: Cigarettes Quit date: 04/20/1989 Years since quittin.9 Smokeless tobacco: Never Tobacco comments: smoked since 19 years of age. Smokes a pack every 3-4 days. 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 Review of Systems: obtained from pt and staff Constitutional ROS: No change in weight, No weakness, No fatigue and No fevers, sweats, or chills Pulmonary ROS: No cough, sputum, or hemoptysis, No wheezing, No shortness of breath and No recent change in breathing Cardiovascular ROS: No chest pain, No shortness of breath, No edema, No palpitations and No syncope Skin: see HPI OBJECTIVE: PHYSICALEXAM: I reviewed the most recent facilities vitals. General: alert, no distress, well nourished and well developed Heart: regular rate & rhythm, no murmurs and no gallops Lungs: normal respiratory rate and rhythm, no chest wall tenderness, lungs clear to auscultation : erythema noted perineal and external genitalia with excoriations. No discharge ASSESSMENT: Candidal vulvovaginitis (Primary) PLAN: Miconazole cream BID to area. Keep area clean and dry and Continue present medication(s):as ordered. Usp Home Treatment Given: as above documented in this encounter Plan of Treatment Upcoming Encounters Date Type Department Care Team (Late st Contact Info) Description 05/07/2023 2:20 PM EST Office Visit Family Medicine [address] [place] [phone] Vianca Kitchen MD [address] [place] [address] [place] [address] 06/10/2023 3:00 PM EDT Laboratory Laboratory [address] [place] [phone] [facility] [address] [place] [address] 06/16/2023 2:30 PM EDT Office Visit Hematology/Oncology [facility] [address] [place] [address] [place] [address] Cynthia Gonzalez MD [address] [facility] [place] [phone] Scheduled Procedures Name Priority Associated Diagnoses Date/Ti [...] as of this encounter Visit Diagnoses Diagnosis Candidal vulvovaginitis- Primary Candidiasis of vulva and vagina documented in this encounter Advance Directives Documents on File Type Date Recorded Patient Rib Puller Expl anation Power of Inspector Integrated Circ[employer] 12/16/2018 10:33 AM Nate r of Inspector Integrated [employer] Latest Code Status on File Code Status [...] the patient have Health Care Power of Inspector Integrated Circ[employer]? No Healthcare Agents on File Name Relationship Healthcare Agent Relationsga p Communication Wesley Hassan Spouse Health Care Agent Care Teams Financial Planning Assistant Relationship Specialty Start Date End Date Bella Power MD [address] [place] [address] [place] [phone] PCP - General Family Medicine 04/02/19 documented as of this encounter
--- OUTSIDE RECORDS SUMMARY | 2023-05-23 20:01 | External Medical Summary | Summary of Care ---
Author Name Unknown Organization [facility] Address [address] [place] [address] Phone [phone] Care Team Providers Care Guideman Name Role Phone Bella Power MD Primary Care Prov ider Reason for Visit * Reason Onset Date Comments Snf Visit 04/02/2023 Encounter Details Date Type Department Care Team (Latest Contact Info) Description 04/02/2023 6:30 AM EST Snf Visit [facility] [address] [place] [address] Nae Rodriges PA-C [address] [place], [place] [phone] Leukocytosis, unspecified type*; 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HCC); ESRD (end stage renal disease) on dialysis ([facility]) Allergies No known active allergiesdocumented as of this encounter (statuses as of 04/02/2023) Medications Medication Sig Dispensed Refills Start Date [...] , group B, by GOLD 2017 classification ([facility]) Inhale via nebulizer. Use as directed. 1 Each 11/27/2018 Active DIURETIC TITRATION PLANIndications:Die Operator sandro heart failure with preserved ejection [...] WRAP) 30 g 11 11/09/2022 Active Nystatin [id number] UNIT/GM External Powder (Nystop) Apply topically to [...] as of this encounter (statuses as of 04/02/2023) Active Problems Problem Noted Date Diagnosed Date [...] as of this encounter (statuses as of 04/02/2023) Resolved Problems Problem Noted Date Diagnosed Date [...] as of this encounter (statuses as of 04/02/2023) Immunizations Name Administration Dates Next Due COVID-19 mRNA, LNP-s, No Pre serve, 2-Dose Series ([employer]) 01/02/2021,06/21/2020,05/24/2020 COVID-19, mRNA, LNP-s, PF, B ooster, [...] Progress Notes * Nae Rodriges PA-C - 04/02/2023 10:54 AM EST Name: Kami Hassan Date of :1945 TRANSITION EVENT: Type: Non-applicable Date: April 02 Code Status: Full Code This note pertains to care provided at [facility]. Please see facility medical record for original note. This note is not to be edited or addended in [employer]. Editing or addending needs to occur in the facilities medical record. Subjective: Kami Hassan is a 77 year old female. Patient being seen for recheck of leukocytosis Chief Complaint Patient presents with Snf Visit HPI: pt was noted to have markedly elevated WBC count on 03/31/23. Pt did have malfunction of dialysis port requiring replacement with right internal jugular tunneled catheter. No noted infection at this site. Pt is having no chills, fever, nausea, diarrhea, vomiting. Vital signs remain stable. Dialysis has been going without issues. Pt having no dysuria. No cough, chest congestion, wheezing. CXR done in facility showed NAD Repeat CBC with diff performed: CBC Results: Results for orders placed or [...] Calcium 8.2 (L) 8.4 - 10.2 mg/dL Labs performed at dialysis center. Patient Active Problem List [...] factor ([facility]) M05.741, M05.742 Primary parkinsonism G20.C History of non-ST elevation myocardial infarction (NSTEMI) I25.2 Venous stasis dermatitis of both lower extremities I87.2 COPD, group B, by GOLD 2017 classification ([facility]) J44.9 Chronic heart failure with preserved ejection fraction ([facility]) I50.32 Iron deficiency anemia due to chronic blood loss D50.0 Diabetes mellitus with ESRD (end-stage renal disease) ([facility]) E11.22, N18.6 Personal history of fall Z91.81 History of CVA (cerebrovascular accident) Z86.73 AVF (arteriovenous fistula) ([facility]) 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[facility]) G20.A1, F02.80 Palliative care encounter Z51.5 Acquired hypothyroidism E03.9 Serrated polyp of colon K63.5 ESRD (end stage renal disease) on dialysis (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) E66.01 Full code status Z78.9 Past Medical History: Diagnosis Date (HFpEF) heart failure with preserved ejection fraction (HCC) Acute on chronic diastolic (congestive) heart failure ([facility]) 03/04/2020 [facility] Allergic rhinitis 02/15/2000 acute BMI 38.0-38.9,adult 08/28/2009 Chronic Sinusitis Unspecified Controlled substance agreement signed 11/25/2016 COVID-19 10/23/2021 Cystitis 05/23/2022 admitted [facility] home on cefuroxime Dyslipidemia, goal LDL below [...] dysfunction ([facility]) Past Surgical History: Procedure Laterality Date ARTHROPLASTY KNEE TOTAL Left Dr. Del Real CARPAL TUNNEL SURGERY Bilateral COLONOSCOPY, DIAGNOSTIC (RECTUM) 11/27/2015 normal, repeat 10 yrs/COLONOSCOPY FLEXIBLE PROXIMAL DIAGNOSTIC performed by Garrett Chang MD at ENDOSCOPY [facility] COLONOSCOPY, DIAGNOSTIC (RECTUM) 09/20/2022 serrated polyp, fair prep / [facility] EGD, FLEXIBLE, DIAGNOSTIC 04/19/2022 esophagitis, repeat 8-12 wks / [facility] EGD, FLEXIBLE, DIAGNOSTIC 06/26/2022 normal, retained food / [facility] EXPLORATION OF MAXILLARY SINUS 03/17/1995 Sinus Surgery HYSTEROSCOPY,DIAGNOSTIC 2022 atrophic endometrium, endometrial polyp INJECTION LUMBAR/SACRAL 07/31/2015 INJECTION SPINE LUMBAR OR SACRAL performed by Quincy Prado DO at OR [facility] INJECTION LUMBAR/SACRAL 08/15/2015 INJECTION SPINE LUMBAR OR SACRAL performed by Quincy Prado DO at OR [facility] MARLI CAT,W/O PUMP;5YR/OLD N/A 11/04/2019 INSERT TUNNELED CENTRAL VENOUS CATHETER AGE 5 OR OLDER performed by Ortega Montez DO at OR [facility] INSER MARLI CAT,W/O PUMP;5YR/OLD Right 03/09/2023 INSERT TUNNELED CENTRAL VENOUS CATHETER AGE 5 OR OLDER performed by Fred Brown MD at OR [facility] INTRO CATH DIALYSIS CIRCUIT W/TRANSLUM BALLOON ANGIOPLASTY Right 03/09/2023 AV FISTULOGRAM & PERIPHERAL ANGIOPLASTY performed by Fred Brown MD at OR [facility] LIGATE/CUT OVIDUCT(S) MISCELLANEOUS ORDER ([facility] ONLY) Bilateral Heel surgery MISCELLANEOUS ORDER ([facility] ONLY) Right 3rd toe nerve decompression, Dr. 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 Review of Systems: Constitutional ROS: No change in weight, No [...] vomiting, diarrhea, or constipation and No dysphagia Skin/Integumentary ROS: No rash and No itching Neurologic ROS: No headaches and No seizures [...] chest wall tenderness, lungs clear to auscultation Chest: clean noninfected dialysis site right chest Abdomen: abdomen soft, non-tender, normal bowel sounds and no masses or organomegaly Extremities: no edema, no clubbing, no cyanosis Skin: skin color, texture, turgor are normal, no rashes or significant lesions ASSESSMENT: Leukocytosis, unspecified type (Primary) Repeat WBC now normal No evidence of infection or sepsis Will follow closely 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HCC) Stable mood and mentation Continue Sertraine 100mg daily ESRD (end stage renal disease) on dialysis (HCC) Continue with dialysis as directed PLAN: Reviewed cBC, BMP, Lytes and Continue present medication(s):as ordered. Correction Home Treatment Given: as above Electronically signed by: Nae Rodriges PA-C Over 35 minutes were spent in this visit more than half the time was spent counselling or coordinating care. documented in this encounter Plan of Treatment Upcoming Encounters Date Type Department Care Team (Late st Contact Info) Description 05/07/2023 2:20 PM EST Office Visit Family Medicine [address] [place] [phone] Vianca Kitchen MD [address] [place] [address] [place] [phone] 06/10/2023 3:00 PM EDT Laboratory Laboratory [address] [place] [phone] [place] [address] 06/16/2023 2:30 PM EDT Office Visit Hematology/Oncology [address] [place] [address] Cynthia Gonzalez MD [address] [place] [address] Scheduled Procedures Name Priority Associated Diagnoses Date/Ti [...] as of this encounter Visit Diagnoses Diagnosis Leukocytosis, unspecified type- Primary 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HCC) ESRD (end stage renal disease) on dialysis (HCC) End stage renal disease documented in this encounter Advance Directives Documents on File Type Date Recorded Patient Junior Analyst Expl anation Power of Machine Shop Worker 12/16/2018 10:33 AM Nate r of Machine Shop Worker Latest Code Status on File Code [...] the patient have Health Care Power of Machine Shop Worker? No Healthcare Agents on File Name Relationship Healthcare Agent [facility] p Communication Wesley Hassan Spouse Health Care Agent Care Teams Guideman Relationship Specialty Start Date End Date Bella Power MD [address] [place] [address] [place] [phone] PCP - General Family Medicine 04/02/19 documented as of this encounter
--- OUTSIDE RECORDS SUMMARY | 2023-05-23 20:01 | External Medical Summary | Summary of Care ---
Author Name Unknown Organization [facility] Address [address] [facility] [place] [address] Phone [phone] Care Team Providers Care Post Tronic Machine Operator Name Role Phone Bella Power MD Primary Care Prov ider Reason for Visit * Reason Comments Outpatient Testing Encounter Details Date Type Department Care Team (Late st Contact Info) Description 04/01/2023 1:20 PM EST Laboratory Laboratory [address] [place] [phone] , Specimen Drop Off [address] [place] [address] Leukocytosis Allergies No known active allergiesdocumented as of this encounter (statuses as of 04/01/2023) Medications Medication Sig Dispensed Refills Start Date [...] 1 Each 1 11/27/2018 Active DIURETIC TITRATION PLANIndications:Event Marketing Manager sandro heart failure with preserved ejection [...] B, by GOLD 2017 classification ([facility]) Inhale by mouth 1 Puff in the [...] WRAP) 30 g 11 11/09/2022 Active Nystatin [id number] UNIT/GM External Powder (Nystop) Apply topically to [...] as of this encounter (statuses as of 04/01/2023) Active Problems Problem Noted Date Diagnosed Date [...] as of this encounter (statuses as of 04/01/2023) Resolved Problems Problem Noted Date Diagnosed Date [...] as of this encounter (statuses as of 04/01/2023) Immunizations Name Administration Dates Next Due COVID-19 mRNA, LNP-s, No Pre serve, 2-Dose Series ([employer]) 01/02/2021,06/21/2020,05/24/2020 COVID-19, mRNA, LNP-s, PF, B ooster, [...] 2:20 PM EST Office Visit Family Medicine [address] [place] [phone] Vianca Kitchen MD [address] [place] [address] [place] [address] 06/10/2023 3:00 PM EDT Laboratory Laboratory [address] [place] [phone] [place] [address] [place] [address] 06/16/2023 2:30 PM EDT Office Visit Hematology/Oncology [facility] [address] [place] [address] Cynthia Gonzalez MD [address] [place] [address] Pending Results Name Type Priority Associated Diagnoses Date /Time CBC WITH WBC DIFFERENTIAL Lab Routine Leukocytosis 04/01/2023 1:22 PM EST CBC Lab Routine Leukocytosis 04/01/2023 1:22 PM EST DIFFERENTIAL, AUTOMATED Lab Routine Leukocytosis 04/01/2023 1:22 PM EST Scheduled Procedures Name Priority Associated [...] as of this encounter Visit Diagnoses Diagnosis Leukocytosis Leukocytosis, unspecified documented in this encounter Advance Directives Documents on File Type Date Recorded Patient Selling Manager Expl anation Power of Consumer Insight Manager 12/16/2018 10:33 AM Nate r of Consumer Insight Manager Latest Code Status on File Code [...] the patient have Health Care Power of Consumer Insight Manager? No Healthcare Agents on File Name [facility] Communication Wesley Hassan Spouse Health Care Agent Care Teams Post Tronic Machine Operator Relationship Specialty Start Date End Date Bella Power MD [address] [place] [address] [place] [id number] PCP - General Family Medicine 04/02/19 documented as of this encounter
--- OUTSIDE RECORDS SUMMARY | 2023-05-23 20:01 | External Medical Summary ---
Author Name Unknown Address Unknown Organization K01:LABORATORY [facility] - [address] [facility] [address] [facility] [address] Laboratory Report Ordering Provider Test Date Status BABITA CORTES 04/01/2023 13:22:53 Final Observation Date Value Abnormality Reference (Units ) Status WBC, Total 04/01/2023 13:22:53 9.16 4.00-10.80 (K/uL) Final RBC 04/01/2023 13:22:53 3.35 3.85-5.15 (M/uL) Final Hemoglobin 04/01/2023 13:22:53 9.6 Below low normal 12.0-15.3 (g/dL) Final HCT 04/01/2023 13:22:53 33.0 Below low normal 36.0-45.2 (%) Final MCV 04/01/2023 13:22:53 98.5 81.5-97.5 (fL) Final MCH 04/01/2023 13:22:53 28.7 27.0-34.0 (pg) Final MCHC 04/01/2023 13:22:53 29.1 32.0-36.0 (g/dL) Final RDW 04/01/2023 13:22:53 16.3 11.5-15.5 (%) Final Platelets 04/01/2023 13:22:53 278 140-400 (K/uL) Final MPV 04/01/2023 13:22:53 11.8 6.6-11.1 (fL) Final Nucleated erythrocytes/100 leukocytes [Ratio] in Blood by Automated count 04/01/2023 13:22:53 0 <=0 (/100 WBCs) Final Performing Location LABORATORY [facility] - [address] [place] [address]
--- OUTSIDE RECORDS SUMMARY | 2023-05-23 20:01 | External Medical Summary | Summary of Care ---
Author Name Unknown Organization [facility] Address [address] [facility] [place] [address] Phone [phone] Care Team Providers Care Sleep Tech Name Role Phone Bella Power MD Primary Care Prov ider Reason for Visit * Reason Onset Date Comments Fpc Visit 04/02/2023 Encounter Details Date Type Department Care Team (Latest Contact Info) Description 04/02/2023 6:30 AM EST Fpc Visit [facility] [address] [place] [address] Nae Rodriges PA-C [address] [place], [place] [id number] Leukocytosis, unspecified type*; Dementia associated with Parkinson's [...] directed. 1 Each 11/27/2018 Active DIURETIC TITRATION PLANIndications:Dentist/Owner sandro heart failure with preserved ejection fraction [...] WRAP) 30 g 11 11/09/2022 Active Nystatin 197358 UNIT/GM External Powder (Nystop) Apply topically to [...] This note pertains to care provided at [facility]. Please see facility medical record for original note. This note is not to be edited or addended in [employer]. Editing or addending needs to occur in the facilities medical record. Subjective: Kami Hassan is a 77 year old female. Patient being seen for recheck of leukocytosis Chief Complaint Patient presents with Fpc Visit HPI: pt was noted to have markedly elevated WBC count on 03/31/23. Pt did have malfunction of dialysis port requiring replacement with right internal jugular tunneled catheter. No noted infection at this site. Pt is having no chills, fever, nausea, diarrhea, vomiting. Vital signs remain stable. Dialysis has been going without issues. Pt having no dysuria. No cough, chest congestion, wheezing. Repeat CBC with diff performed: CBC Results: [...] (HFpEF) heart failure with preserved ejection fraction ([facility]) Acute on chronic diastolic (congestive) heart failure ([facility]) 03/04/2020 [facility] Allergic rhinitis 02/15/2000 acute BMI 38.0-38.9,adult 08/28/2009 Chronic Sinusitis Unspecified Controlled substance agreement signed 11/25/2016 COVID-19 10/23/2021 Cystitis 05/23/2022 admitted [facility] home on cefuroxime Dyslipidemia, goal LDL below [...] rheumatoid factor (HCC) 07/18/2016 SDH (subdural hematoma) ([facility] [...] performed by Garrett Chang MD at ENDOSCOPY [facility] COLONOSCOPY, DIAGNOSTIC (RECTUM) 09/20/2022 serrated polyp, fair prep / [facility] EGD, FLEXIBLE, DIAGNOSTIC 04/19/2022 esophagitis, repeat 8-12 wks / [facility] EGD, FLEXIBLE, DIAGNOSTIC 06/26/2022 normal, retained food / [facility] EXPLORATION OF MAXILLARY SINUS 03/17/1995 Sinus Surgery HYSTEROSCOPY,DIAGNOSTIC 2022 atrophic endometrium, endometrial polyp INJECTION LUMBAR/SACRAL 07/31/2015 INJECTION SPINE LUMBAR OR SACRAL performed by Quincy Jenni Prado DO at OR [facility] INJECTION LUMBAR/SACRAL 08/15/2015 INJECTION SPINE LUMBAR OR SACRAL performed by Quincy Prado DO at OR [facility] INSER MARLI CAT,W/O PUMP;5YR/OLD N/A 11/04/2019 INSERT TUNNELED CENTRAL VENOUS CATHETER AGE 6 OR OLDER performed by Ortega Montez DO at OR [facility] INSER MARLI CAT,W/O PUMP;5YR/OLD Right 03/09/2023 INSERT TUNNELED CENTRAL VENOUS CATHETER AGE 5 OR OLDER performed by Fred Brown MD at OR [facility] INTRO CATH DIALYSIS CIRCUIT W/TRANSLUM BALLOON ANGIOPLASTY Right 03/09/2023 AV FISTULOGRAM & PERIPHERAL ANGIOPLASTY performed by Fred Brown MD at OR [facility] LIGATE/CUT OVIDUCT(S) MISCELLANEOUS ORDER ([facility] ONLY) Bilateral Heel surgery MISCELLANEOUS ORDER ([facility] ONLY) Right 3rd toe nerve decompression, Dr. 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 Review of Systems: Constitutional ROS: No change [...] BMP, Lytes and Continue present medication(s):as ordered. Longterm Home Treatment Given: as above Electronically signed by: Nae Rodriges PA-C Over 35 minutes were spent in this visit more than half the time was spent counselling or coordinating care. documented in this encounter Plan of Treatment Upcoming Encounters Date Type Department Care Team (Late st Contact Info) Description 05/07/2023 2:20 PM EST Office Visit Family Medicine [address] [place] [phone] Vianca Kitchen MD [address] [place] [address] [place] [address] 06/10/2023 3:00 PM EDT Laboratory Laboratory [address] [place] [phone] [place] [address] 06/16/2023 2:30 PM EDT Office Visit Hematology/Oncology [facility] [address] [facility] [place] [address] Cynthia Gonzalez MD [address] [place] [address] Scheduled Procedures Name Priority Associated Diagnoses Date/Ti [...] Documents on File Type Date Recorded Patient Glost Placer Expl anation Power of Purchasing Associate 12/16/2018 10:33 AM Nate r of Purchasing Associate Latest Code Status on File Code [...] the patient have Health Care Power of Purchasing Associate? No Healthcare Agents on File Name Relationship Healthcare Agent Relationshi p Communication Wesley Hassan Spouse Health Care Agent Care Teams Sleep Tech Relationship Specialty Start Date End Date Bella Power MD [address] [place] [address] [place] [address] PCP - General Family Medicine 04/02/19 documented as of this encounter
--- OUTSIDE RECORDS SUMMARY | 2023-05-23 20:01 | External Medical Summary | Summary of Care ---
Author Name Unknown Organization [facility] Address [address] [facility] [address] Phone [phone] Care Team Providers Care Product Management Manager Name Role Phone Bella Power MD Primary Care Prov ider Reason for Visit * Reason Onset Date Comments Shelter Visit 04/15/2023 Regulatory Encounter Details Date Type Department Care Team (Latest Contact Info) Description 04/15/2023 11:30 AM EST Shelter Visit [facility] [address] [place] [address] aNe Rodriges PA-C [address] [place] [address] ESRD (end stage renal disease) on dialysis ([facility])*; Diabetes mellitus with ESRD (end-stage renal disease) ([facility]); 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[facility]); COPD, group B, by GOLD 2017 classification ([facility]); Anemia in end-stage renal disease ([facility]); Acquired hypothyroidism; Acute pain of right [...] 2017 classification ([facility]) Inhale via nebulizer. Use as directed. 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 [address] [place] [address] 06/16/2023 2:30 PM EDT Office Visit Hematology/Oncology [employer] [address] [facility] [place] [address] Cynthia Gonzalez MD [address] [place] [address] Scheduled Procedures Name Priority Associated Diagnoses Date/Ti [...] GOLD 2017 classification ([facility]) Anemia in end-stage renal disease (HCC) Anemia in chronic kidney disease Acquired hypothyroidism Unspecified hypothyroidism Acute pain of right shoulder documented in this encounter Advance Directives Documents on File Type Date Recorded Patient Data Abstractor Expl anation Power of Quality Control Associate 12/16/2018 10:33 AM Nate r of Quality Control Associate Latest Code Status on File Code [...] the patient have Health Care Power of Quality Control Associate? No Healthcare Agents on File Name Relationship Healthcare Agent [facility] Communication Wesley Hassan Spouse Health Care Agent Care Teams Product Management Manager Relationship Specialty Start Date End Date Bella Power MD [address] [place] [address] [place] [phone] PCP - General Family Medicine 04/02/19 documented as of this encounter
--- OUTSIDE RECORDS SUMMARY | 2023-05-23 20:01 | External Medical Summary | Summary of Care ---
Author Name Unknown Organization [facility] Address [address] [facility] [place] [address] Phone [phone] Care Team Providers Care Employee Relations Representative Name Role Phone Bella Power MD Primary Care Prov ider Reason for Visit * Reason Comments Outpatient Testing Encounter Details Date Type Department Care Team (Late st Contact Info) Description 04/01/2023 1:20 PM EST Laboratory Laboratory [address] [place] [phone] , Specimen Drop Off [address] [place] [address] Leukocytosis Allergies No known active allergiesdocumented as [...] 1 Each 1 11/27/2018 Active DIURETIC TITRATION PLANIndications:Return To Vendor sandro heart failure with preserved ejection fraction [...] WRAP) 30 g 11 11/09/2022 Active Nystatin 040232 UNIT/GM External Powder (Nystop) Apply topically to [...] mRNA, LNP-s, No Pre serve, 2-Dose Series ([employer]) 01/02/2021,06/21/2020,05/24/2020 COVID-19, mRNA, LNP-s, PF, B ooster, [...] 2:20 PM EST Office Visit Family Medicine [address] [place] [phone] Vianca Kitchen MD [address] [place] [address] [place] [address] 06/10/2023 3:00 PM EDT Laboratory Laboratory [address] [place] [phone] [place] [address] 06/16/2023 2:30 PM EDT Office Visit Hematology/Oncology [place] [address] [facility] [place] [address] Cynthia Gonzalez MD [address] [place] [address] Pending Results Name Type Priority Associated Diagnoses [...] Documents on File Type Date Recorded 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 No Healthcare Agents on File Name Relationship Healthcare Agent [facility] Communication Wesley Hassan Spouse Health Care Agent Care Teams Employee Relations Representative Relationship Specialty Start Date End Date Bella Power MD [address] [place] [address] [place] [phone] PCP - General Family Medicine 04/02/19 documented as of this encounter
--- OUTSIDE RECORDS SUMMARY | 2023-05-23 20:01 | External Medical Summary ---
Author Name Unknown Address Unknown Organization K01:[facility] - [address] [facility] [place] [address] Laboratory Report Ordering Provider Test Date Status BABITA CORTES 04/01/2023 13:22:53 Final Observation Date Value Abnormality Reference (Units ) Status SYNC LEUKOCYTES IN BLOOD BY AUTOMATED COUNT 04/01/2023 13:22:53 9.16 4.00-10.80 (K/uL) Final Segs 04/01/2023 13:22:53 72.8 40.0-75.0 (%) Final Lymphs % 04/01/2023 13:22:53 10.4 Below low normal 18.0-42.0 (%) Final Monos 04/01/2023 13:22:53 10.2 1.0-11.0 (%) Final Eosinophils 04/01/2023 13:22:53 4.5 0.0-6.0 (%) Final Basos 04/01/2023 13:22:53 1.0 0.0-2.0 (%) Final Immature Granulocyte, Percent 04/01/2023 13:22:53 1.1 0.0-2.0 (%) Final Absolute Segs 04/01/2023 13:22:53 6.68 1.80-7.70 (K/uL) Final Lymphs, absolute 04/01/2023 13:22:53 0.95 Below low normal 1.00-4.80 (K/ul) Final Monos, Abs 04/01/2023 13:22:53 0.93 0.00-1.10 (K/uL) Final Eos, Abs 04/01/2023 13:22:53 0.41 0.00-0.70 (K/uL) Final Basos, Abs 04/01/2023 13:22:53 0.09 0.00-0.20 (K/uL) Final Immature Granulocytes, Number 04/01/2023 13:22:53 0.10 0.00-0.20 (K/uL) Final Performing Location [facility] [place] - [address] [facility] [address]
--- OUTSIDE RECORDS SUMMARY | 2023-05-23 20:01 | External Medical Summary | Summary of Care ---
Author Name Unknown Organization [facility] Address [address] [place] [address] Phone [phone] Care Team Providers Care Personal Assistant Name Role Phone Bella Power MD Primary Care Prov ider Reason for Visit * Reason Onset Date Comments Encounter Created in Error 04/15/2023 Encounter Details Date Type Department Care Team (Latest Contact Info) Description 04/15/2023 10:00 AM EST [facility]sp Visit [facility] [address] [place] [address] Nae Rodriges PA-C [address] [place] [address] Encounter created in error Allergies No known [...] 1 Each 1 11/27/2018 Active DIURETIC TITRATION PLANIndications:Dope Edger sandro heart failure with preserved ejection fraction [...] WRAP) 30 g 11 11/09/2022 Active Nystatin 467055 UNIT/GM External Powder (Nystop) Apply topically to [...] infection) 03/09/2023 03/19/2023 BMI 38.0-38.9,adult 09/12/2022 03/19/19 Overview: [address] [...] mRNA, LNP-s, No Pre serve, 2-Dose Series ([employer]) 01/02/2021,06/21/2020,05/24/2020 COVID-19, mRNA, LNP-s, PF, B ooster, [...] Notes * Nae Rodriges PA-C - 04/15/2023 12:15 PM EST This encounter was created in error. 04/15/2023, 12:15 PM, Nae Rodriges PA-C documented in this encounter Plan of Treatment Upcoming Encounters Date Type Department Care Team (Late st Contact Info) Description 05/07/2023 2:20 PM EST Office Visit Family Medicine [address] [place] [phone] Vianca Kitchen MD [address] [place] [address] [place] [address] 06/10/2023 3:00 PM EDT Laboratory Laboratory [address] [place] [phone] [facility] [address] [place] [address] 06/16/2023 2:30 PM EDT Office Visit Hematology/Oncology [place] [address] [facility] [place] [address] Cynthia Gonzalez MD 200 [facility] [place] [address] Scheduled Procedures Name Priority Associated Diagnoses Date/Ti [...] as of this encounter Visit Diagnoses Diagnosis Encounter Created In Error- Primary documented in this encounter Advance Directives Documents on File Type Date Recorded Patient Press Tender Smoke Signal Expl anation Power of Diesel Technician 12/16/2018 10:33 AM Nate peralta of Diesel Technician Latest Code Status on File Code [...] the patient have Health Care Power of Diesel Technician? No Healthcare Agents on File Name Relationship Healthcare Agent [facility] Communication Wesley Hassan Spouse Health Care Agent Care Teams Personal Assistant Relationship Specialty Start Date End Date Bella Power MD [address] [place] [address] [place] [address] PCP - General Family Medicine 04/02/19 documented as of this encounter
--- OUTSIDE RECORDS SUMMARY | 2023-05-23 20:02 | External Medical Summary | Summary of Care ---
Author Name Unknown Organization [facility] Address [address] [facility] [place] [address] Phone [phone] Care Team Providers Care Associate Professor Of Music Name Role Phone Bella Power MD Primary Care Prov ider Reason for Visit * Reason Onset Date Comments Mcfp Visit 03/31/2023 Encounter Details Date Type Department Care Team (Latest Contact Info) Description 03/31/2023 6:30 AM EST Mcfp Visit [facility] [address] [place] [address] Nae Rodriges PA-C [address] [place], [place] [phone] Leukocytosis, unspecified type*; ESRD (end stage renal disease) on dialysis (HCC); 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HCC); COPD, group B, by GOLD 2017 classification ([facility]); 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 factor ([facility]) Allergies No known active allergiesdocumented as of this encounter (statuses as of 03/31/2023) Medications Medication Sig Dispensed Refills Start Date [...] GOLD 2017 classification ([facility]) Inhale via nebulizer. Use as directed. 1 Each 1 11/27/2018 Active DIURETIC TITRATION PLANIndications:Brass Burnisher sandro heart failure with preserved ejection fraction [...] WRAP) 30 g 11 11/09/2022 Active Nystatin 281233 UNIT/GM External Powder (Nystop) Apply topically to [...] as of this encounter (statuses as of 03/31/2023) Active Problems Problem Noted Date Diagnosed Date [...] as of this encounter (statuses as of 03/31/2023) Resolved Problems Problem Noted Date Diagnosed Date [...] as of this encounter (statuses as of 03/31/2023) Immunizations Name Administration Dates Next Due COVID-19 [...] 2:20 PM EST Office Visit Family Medicine [address] [place] [phone] Vianca Kitchen MD [address] [place] [address] [place] [address] 06/10/2023 3:00 PM EDT Laboratory Laboratory [address] [place] [phone] [address] [place] [address] 06/16/2023 2:30 PM EDT Office Visit Hematology/Oncology [facility] [address] [place] [address] Cynthia Gonzalez MD [facility] [place] [address] Scheduled Procedures Name Priority Associated Diagnoses Date/Ti [...] Visit Diagnoses Diagnosis Leukocytosis, unspecified type- Primary ESRD (end stage renal disease) on dialysis (HCC) End stage renal disease 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HCC) COPD, group B, by GOLD 2017 classification (HCC) 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 No Healthcare Agents on File Name Relationship Healthcare Agent [facility] Communication Wesley Hassan Spouse Health Care Agent Care Teams Associate Professor Of Music Relationship Specialty Start Date End Date Bella Power MD [address] [place] [address] [place] [address] PCP - General Family Medicine 04/02/19 documented as of this encounter
--- OUTSIDE RECORDS SUMMARY | 2023-05-23 20:02 | External Medical Summary | Summary of Care ---
Author Name Unknown Organization [facility] [address] [facility] [address] Phone [phone] Care Team Providers Care Director Internal Control Name Role Phone Bella Power MD Primary Care Prov ider Reason for Visit * Reason Onset Date Comments Fpc Visit - Admission 03/19/2023 Encounter Details Date Type Department Care Team (Latest Contact Info) Description 03/19/2023 8:30 AM EST Fpc Visit [address] [place] [id number] Howie Gilbert MD [address] [place] [address] [place] [address] AVF (arteriovenous fistula) ([facility])*; ESRD (end stage renal disease) on dialysis ([facility]); Diabetes mellitus with ESRD (end-stage renal disease) ([facility]); 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[facility]); COPD, group B, by GOLD 2017 classification ([facility]); Anemia in end-stage renal disease ; Morbid (severe) obesity due to excess calories ([facility]); AYSHA (generalized anxiety disorder); 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 factor ([facility]); Primary parkinsonism; Steatohepatitis, non-alcoholic Allergies No known active allergiesdocumented as of this encounter (statuses as of 03/19/2023) Medications Medication Sig Dispensed Refills Start Date End Date Status ONETOUCH DELICA LANCETS 33G MISC Up to 4 times daily 100 Each 6 5 Active Glucose Blood (ONETOUCH ULTRA BLUE) STRP Use as directed 4 times a day as needed (Diabetes). Use up to four times a day as directed 100 Strip 11 8 Active Nebulizers (NEBULIZER COMPRESSOR) MISCIndications:HERB COUNSELOR D, group B, by GOLD 2017 classification ([facility]) Inhale via nebulizer. Use as [...] the morning. 30 Tab 5 0 Active Meclizine HCl 12.5 MG Oral Tablet (ANTIVERT) Take 1 Tablet by mouth 3 times a day as needed. 0 Active Breo Ellipta 200-25 MCG/INH Inhalation Aerosol Powder Breath Activated (fluticasone furoate-vilanterol) Indications:COPD, group B, by GOLD 2017 classification ([facility] [...] 90 Tablet 1 3 08/21/19 24 Active Carbidopa-Levodopa 25-100 MG Oral Tablet (Sinemet) TAKE ONE TABLET BY MOUTH THREE TIMES A DAY WITH MEALS 90 Tablet 5 3 09/14/19 24 Active Lidocaine-Prilocain e 2.5-2.5 % External Cream (Emla) APPLY SMALL AMOUNT TO ACCESS SITE (AVF) 1 TO 2 HOURS BEFORE DIALYSIS. COVER WITH OCCLUSIVE DRESSING (SARAN WRAP) 30 g 3 Active Nystatin 581365 UNIT/GM External Powder (Nystop) Apply topically to affected area 2 times a day. 60 g 3 Active Pantoprazole Sodium 20 MG Oral Tablet Delayed Release (Protonix) Take 1 Tablet by mouth in the morning and 1 Tablet in the evening. 180 Tablet 1 3 Active Isosorbide Mononitrate ER 30 MG Oral Tablet Extended Release 24 Hour (Imdur) TAKE 1 TABLET BY MOUTH DAILY 90 Tablet 3 3 01/14/20 24 Active Pregabalin 100 MG Oral Capsule (Lyrica)Indications :Primary parkinsonism Take 1 capsule by mouth twice daily. May take 1 extra capsule after dialysis. 90 Capsule 1 3 Active CPAP every night at bedtime. 0 Active Coloplast PasteIndications:He morrhoids, external without complications Use to hemorrhoids 1-2 times per day as needed for hemorrhoids 57 g 3 3 Active Hydrocortisone (Perianal) 2.5 % External Cream (Procto-Med HC)Indications:Hemo rrhoids, external without complications Administer into the rectum daily as needed for Hemorrhoids. 28 g 2 3 Active Mupirocin 2 % External Ointment (Bactroban) apply one application externally twice daily 22 g 0 3 03/19/19 24 Discontinued documented as of this encounter (statuses as of 03/19/2023) Active Problems Problem Noted Date Diagnosed Date Morbid (severe) obesity due to excess calories [...] as of this encounter (statuses as of 03/19/2023) Resolved Problems Problem Noted Date Diagnosed Date [...] as of this encounter (statuses as of 03/19/2023) Immunizations Name Administration Dates Next Due COVID-19 [...] as of this encounter Progress Notes * Howie Gilbert MD - 03/19/2023 1:25 PM EST ADMISSION HISTORY and PHYSICAL TRANSITION EVENT: Type: SNF admission Date: March 18 Code Status: Full Code Name: Kami Hassan Date of : 1945 This note pertains to care provided at [facility]. Please see facility medical record for original note. This note is not to be edited or addended in [facility]. Editing or addending needs to occur in the facilities medical record. S: Kami Hassan had been admitted to [facility] from [facility] for convalesence and probable group home care. Recently admitted to [facility] on 03/09/23 because of malfunction of right AV fistula and was transferred here and admitted on 03/18/2023. Patient of Dr. 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 The AV fistula could not be cannulized despite multiple attempts. She was then transferred to [facility] for fistulogram and vascular surgery evaluation. Patient underwent fistulogram that showed right brachiocephalic fistula with small patent anastomosis and a stenosis in the proximal portion of the cephalic vein. She then underwent an angioplasty with satisfactory results at the same time, 03/09/23. She also had a right internal jugular vein tunneled dialysis catheter placed. She is to not have the right AV fistula used for 1 month. No medication changes were made other than Anusol HC suppositories were discontinued. Patient is now admitted for ongoing care. Family has not been able to meet her care needs at this time and will likely require terminal operator care. She remains on a 1500 ml fluid restriction. She is a mechanical lift. She receives hemodialysis on a Friday, , and Friday schedule. Patient is seen today while laying in bed. She is confused and oriented only to person. She does not recall details of being in the hospital or that she had an angioplasty of her AV fistula or a dialysis catheter placed. She is wearing oxygen when seen but states she only wears it at night. She does have a CPAP in the room for use at night. She denies any shortness of breath and denies any medical problems. Past Medical History: Patient Active Problem List Diagnosis Code ADVANCE DIRECTIVE INFORMATION Meniere's disease, cochlear, active H81.09 Hypothyroidism due to acquired atrophy of thyroid E03.4 Steatohepatitis, non-alcoholic K75.81 Obesity E66.9 Restless leg syndrome G25.81 Dyslipidemia, goal LDL below 100 E78.5 AYSHA (generalized anxiety disorder) F41.1 RENÉ on CPAP G47.33 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 factor ([facility]) M05.741, M05.742 Primary parkinsonism G20.C History of non-ST elevation myocardial infarction (NSTEMI) I25.2 Venous stasis dermatitis of both lower extremities I87.2 COPD, group B, by GOLD 2017 classification ([facility]) J44.9 Chronic heart failure with preserved ejection fraction ([facility]) I50.32 Iron deficiency anemia due to chronic blood loss D50.0 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 ([facility]) I13.2, I50.40, Z99.2, N18.6 Diabetes mellitus with ESRD (end-stage renal disease) ([facility]) E11.22, N18.6 Personal history of fall Z91.81 History of CVA (cerebrovascular accident) Z86.73 AVF (arteriovenous fistula) ([facility]) 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[facility]) G20.A1, F02.80 Palliative care encounter Z51.5 Acquired hypothyroidism E03.9 Serrated polyp of colon K63.5 ESRD (end stage renal disease) on dialysis ([facility]) N18.6, Z99.2 Chronic kidney disease-mineral and bone disorder N18.9, E83.9, M89.9 Anemia in end-stage renal disease N18.6, D63.1 Morbid (severe) obesity due to excess calories ([facility]) E66.01 Current Outpatient Medications Medication Sig Dispense Refill SkafflUCH DELICA LANCETS 33G MISC Up to 4 [...] mouth in the morning. 30 Tab 5 Meclizine HCl 12.5 MG Oral Tablet (ANTIVERT) [...] WHOLE, DO NOT CHEW OR CRUSH MEDICATION Nanci-Saumel Oral Tablet Take 1 Tablet by mouth [...] TABLET BY MOUTH DAILY. 90 Tablet 1 Carbidopa-Levodopa 25-100 MG Oral Tablet (Sinemet) TAKE ONE TABLET BY MOUTH THREE TIMES A DAY WITH MEALS 90 Tablet 5 Lidocaine-Prilocaine 2.5-2.5 % External Cream (Emla) APPLY SMALL AMOUNT TO ACCESS SITE (AVF) 1 TO 2HOURS BEFORE DIALYSIS. COVER WITH OCCLUSIVE DRESSING (SARAN WRAP) 30 g 11 Nystatin 668338 UNIT/GM External Powder (Nystop) Apply topically to affected area 2 times a day. 60g 5 Pantoprazole Sodium 20 MG Oral Tablet Delayed Release (Protonix) Take 1 Tablet by mouth in the morning and 1 Tablet in the evening. 180 Tablet 1 Isosorbide Mononitrate ER 30 MG Oral Tablet Extended Release 24 Hour (Imdur) TAKE 1 TABLET BY MOUTHDAILY 90 Tablet 3 Pregabalin 100 MG Oral Capsule (Lyrica) Take 1 capsule by mouth twice daily. May take 1 extra capsule after dialysis. 90 Capsule 1 CPAP every night at bedtime. Coloplast Paste Use to hemorrhoids 1-2 times per day as needed for hemorrhoids 57 g 3 Hydrocortisone (Perianal) 2.5 % External Cream (Procto-Med HC) Administer into the rectum daily as needed for Hemorrhoids. 28 g 2 No current facility-administered medications for this visit. Review of patient's allergies indicates: No Known Allergies Social History Tobacco Use Smoking status: Former Packs/day: 0.25 Years: 50.00 Additional pack years: 0.00 Total pack years: 12.50 Types: Cigarettes Quit date: 04/20/1989 Years since quittin.9 Smokeless tobacco: Never Tobacco comments: smoked since 19 years of age. Smokes a pack every 3-4 days. Substance Use Topics Alcohol use: Never Vaping/E-Cigarette Use Vaping/E-Cigarette Use Never User Vaping/E-Cigarette Substances Vaping/E-Cigarette Devices Past Surgical History: Procedure Laterality Date ARTHROPLASTY KNEE TOTAL Left Dr. Del Real CARPAL TUNNEL SURGERY Bilateral COLONOSCOPY, DIAGNOSTIC (RECTUM) 11/27/2015 normal, repeat 10 yrs/COLONOSCOPY FLEXIBLE PROXIMAL DIAGNOSTIC performed by Garrett Chang MD at ENDOSCOPY [facility] EGD, FLEXIBLE, DIAGNOSTIC 04/19/2022 esophagitis, repeat 8-12 wks / [facility] EGD, FLEXIBLE, DIAGNOSTIC 06/26/2022 normal, retained food / [facility] EXPLORATION OF MAXILLARY SINUS 03/17/1995 Sinus Surgery HYSTEROSCOPY,DIAGNOSTIC 2022 atrophic endometrium, endometrial polyp INJECTION LUMBAR/SACRAL 07/31/2015 INJECTION SPINE LUMBAR OR SACRAL performed by Quincy Prado DO at OR [facility] INJECTION LUMBAR/SACRAL 08/15/2015 INJECTION SPINE LUMBAR OR SACRAL performed by Quincy Prado DO at OR [facility] MARLI CAT,W/O PUMP;5YR/OLD N/A 11/04/2019 INSERT TUNNELED CENTRAL VENOUS CATHETER AGE 6 OR OLDER performed by Ortega Montez DO at OR [facility] INSER MARLI CAT,W/O PUMP;5YR/OLD Right 03/09/2023 INSERT TUNNELED CENTRAL VENOUS CATHETER AGE 6 OR OLDER performed by Fred Brown MD at OR [facility] INTRO CATH DIALYSIS CIRCUIT W/TRANSLUM BALLOON ANGIOPLASTY Right 03/09/2023 AV FISTULOGRAM & PERIPHERAL ANGIOPLASTY performed by Fred Brown MD at OR [facility] LIGATE/CUT OVIDUCT(S) MISCELLANEOUS ORDER ([facility] ONLY) Bilateral Heel surgery MISCELLANEOUS ORDER ([facility] ONLY) Right 3rd toe nerve decompression, Dr. Del Real CA COLSC FLX W/RMVL OF TUMOR POLYP LESION [...] Specified) Sis (Not Specified) Sis (Not Specified) Results for orders placed or performed during the hospital encounter of 03/09/23 MRSA SCREEN, PCR Result Value Ref Range MRSA PCR Result Positive (A) Negative CBC Result Value Ref Range WBC 7.59 4.00 - 10.80 K/uL RBC 3.44 3.85 - 5.15 M/uL HGB 9.9 (L) 12.0 - 15.3 g/dL HCT 34.6 (L) 36.0 - 45.2 % MCV 100.6 81.5 - 97.5 fL MCH 28.8 27.0 - 34.0 pg MCHC 28.6 32.0 - 36.0 g/dL RDW 17.7 11.5 - 15.5 % PLT 284 140 - 400 K/uL MPV 10.4 6.6 - 11.1 fL nRBCs 0 <=0 /100 WBCs HEMOGLOBIN A1C Result Value Ref Range Hemoglobin A1C 4.9 4.0 - 5.6 % Estimated Average Glucose 94 <126 mg/dL BNP, NT-PRO Result Value Ref Range BNP, NT-Pro 31,444 (H) <300 pg/mL BASIC METABOLIC PANEL Result Value Ref Range BUN 46 (H) 6 - 20 mg/dL Creatinine 10.2 (H) 0.5 - 1.0 mg/dL Estimated Glomerular Filtration Rate 4 (L) >=60 mL/min Sodium 142 135 - 146 mmol/L Potassium 3.8 3.5 - 5.1 mmol/L Chloride 101 98 - 107 mmol/L CO2 23 22 - 32 mmol/L Anion Gap 18 (H) 7 - 15 mmol/L Glucose 108 70 - 120 mg/dL Calcium 9.0 8.4 - 10.2 mg/dL MAGNESIUM Result Value Ref Range Magnesium 2.4 1.5 - 2.6 mg/dL CBC Result Value Ref Range WBC 8.26 4.00 - 10.80 K/uL RBC 3.20 3.85 - 5.15 M/uL HGB 9.5 (L) 12.0 - 15.3 g/dL HCT 31.6 (L) 36.0 - 45.2 % MCV 98.8 81.5 - 97.5 fL MCH 29.7 27.0 - 34.0 pg MCHC 30.1 32.0 - 36.0 g/dL RDW 17.7 11.5 - 15.5 % PLT 273 140 - 400 K/uL MPV 9.7 6.6 - 11.1 fL nRBCs 0 <=0 /100 WBCs DIFFERENTIAL, AUTOMATED Result Value Ref Range WBC 8.26 4.00 - 10.80 K/uL Neutrophils % 70.5 40.0 - 75.0 % Lymphocytes % 11.3 (L) 18.0 - 42.0 % Monocytes % 9.3 1.0 - 11.0 % Eosinophils % 5.4 0.0 - 6.0 % Basophils % 1.1 0.0 - 2.0 % Immature Granulocytes % 2.4 (H) 0.0 - 2.0 % Absolute Neutrophils 5.82 1.80 - 7.70 K/uL Absolute Lymphocytes 0.93 (L) 1.00 - 4.80 K/ul Absolute Monocytes 0.77 0.00 - 1.10 K/uL Absolute Eosinophils 0.45 0.00 - 0.70 K/uL Absolute Basophils 0.09 0.00 - 0.20 K/uL Absolute Immature Granulocytes 0.20 0.00 - 0.20 K/uL CBC Result Value Ref Range WBC 8.53 4.00 - 10.80 K/uL RBC 3.00 3.85 - 5.15 M/uL HGB 8.7 (L) 12.0 - 15.3 g/dL HCT 30.3 (L) 36.0 - 45.2 % MCV 101.0 81.5 - 97.5 fL MCH 29.0 27.0 - 34.0 pg MCHC 28.7 32.0 - 36.0 g/dL RDW 17.5 11.5 - 15.5 % PLT 244 140 - 400 K/uL MPV 10.5 6.6 - 11.1 fL nRBCs 0 <=0 /100 WBCs BASIC METABOLIC PANEL Result Value Ref Range BUN 54 (H) 6 - 20 mg/dL Creatinine 11.6 (H) 0.5 - 1.0 mg/dL Estimated Glomerular Filtration Rate 3 (L) >=60 mL/min Sodium 141 135 - 146 mmol/L Potassium 4.2 3.5 - 5.1 mmol/L Chloride 101 98 - 107 mmol/L CO2 22 22 - 32 mmol/L Anion Gap 18 (H) 7 - 15 mmol/L Glucose 100 70 - 120 mg/dL Calcium 9.0 8.4 - 10.2 mg/dL MAGNESIUM Result Value Ref Range Magnesium 2.5 1.5 - 2.6 mg/dL HEPATITIS B SURFACE ANTIGEN Result Value Ref Range Hepatitis B Surface Antigen Negative Negative HEPATITIS B SURFACE ANTIBODY Result Value Ref Range Hepatitis B Surface Antibody, Quantitative 179.0 mIU/mL Hepatitis B Surface Antibody, Qualitative Positive Hepatitis B Surface Antibody, Interpretation Immune to Hepatitis B Virus HEPATITIS B CORE ANTIBODY IGM Result Value Ref Range Hepatitis B Core Antibody IgM Negative Negative HEPATITIS B CORE ANTIBODIES IGG AND IGM Result Value Ref Range Hepatitis B Core Antibodies IgG and IgM Negative Negative HEPATITIS C ANTIBODY Result Value Ref Range Hepatitis C Antibody Negative Negative CBC Result Value Ref Range WBC 7.49 4.00 - 10.80 K/uL RBC 2.95 3.85 - 5.15 M/uL HGB 8.6 (L) 12.0 - 15.3 g/dL HCT 29.1 (L) 36.0 - 45.2 % MCV 98.6 81.5 - 97.5 fL MCH 29.2 27.0 - 34.0 pg MCHC 29.6 32.0 - 36.0 g/dL RDW 17.4 11.5 - 15.5 % PLT 214 140 - 400 K/uL MPV 10.3 6.6 - 11.1 fL nRBCs 0 <=0 /100 WBCs BASIC METABOLIC PANEL Result Value Ref Range [...] Calcium 8.2 (L) 8.4 - 10.2 mg/dL PHOSPHORUS Result Value Ref Range Phosphorus 9.9 (H) 2.5 - 4.8 mg/dL RENAL FUNCTION PANEL Result Value Ref Range BUN 25 (H) 6 - 20 mg/dL Creatinine 7.1 (H) 0.5 - 1.0 mg/dL Estimated Glomerular Filtration Rate 6 (L) >=60 mL/min Sodium 135 135 - 146 mmol/L Potassium 3.6 3.5 - 5.1 mmol/L Chloride 96 (L) 98 - 107 mmol/L CO2 26 22 - 32 mmol/L Anion Gap 13 7 - 15 mmol/L Glucose 94 70 - 120 mg/dL Calcium 8.7 8.4 - 10.2 mg/dL Albumin 3.5 (L) 3.8 - 5.0 g/dL Phosphorus 5.7 (H) 2.5 - 4.8 mg/dL RENAL FUNCTION PANEL Result Value Ref Range BUN 34 (H) 6 - 20 mg/dL Creatinine 9.3 (H) 0.5 - 1.0 mg/dL Estimated Glomerular Filtration Rate 4 (L) >=60 mL/min Sodium 134 (L) 135 - 146 mmol/L Potassium 3.6 3.5 - 5.1 mmol/L Chloride 94 (L) 98 - 107 mmol/L CO2 24 22 - 32 mmol/L Anion Gap 16 (H) 7 - 15 mmol/L Glucose 96 70 - 120 mg/dL Calcium 8.3 (L) 8.4 - 10.2 mg/dL Albumin 3.6 (L) 3.8 - 5.0 g/dL Phosphorus 7.4 (H) 2.5 - 4.8 mg/dL RENAL FUNCTION PANEL Result Value Ref Range BUN 27 (H) 6 - 20 mg/dL Creatinine 7.9 (H) 0.5 - 1.0 mg/dL Estimated Glomerular Filtration Rate 5 (L) >=60 mL/min Sodium 136 135 - 146 mmol/L Potassium 3.4 (L) 3.5 - 5.1 mmol/L Chloride 97 (L) 98 - 107 mmol/L CO2 24 22 - 32 mmol/L Anion Gap 15 7 - 15 mmol/L Glucose 115 70 - 120 mg/dL Calcium 8.5 8.4 - 10.2 mg/dL Albumin 3.4 (L) 3.8 - 5.0 g/dL Phosphorus 6.7 (H) 2.5 - 4.8 mg/dL RENAL FUNCTION PANEL Result Value Ref Range BUN 18 6 - 20 mg/dL Creatinine 5.7 (H) 0.5 - 1.0 mg/dL Estimated Glomerular Filtration Rate 7 (L) >=60 mL/min Sodium 134 (L) 135 - 146 mmol/L Potassium 3.8 3.5 - 5.1 mmol/L Chloride 96 (L) 98 - 107 mmol/L CO2 26 22 - 32 mmol/L Anion Gap 12 7 - 15 mmol/L Glucose 105 70 - 120 mg/dL Calcium 8.8 8.4 - 10.2 mg/dL Albumin 3.7 (L) 3.8 - 5.0 g/dL Phosphorus 5.0 (H) 2.5 - 4.8 mg/dL RENAL FUNCTION PANEL Result Value Ref Range BUN 45 (H) 6 - 20 mg/dL Creatinine 9.2 (H) 0.5 - 1.0 mg/dL Estimated Glomerular Filtration Rate 4 (L) >=60 mL/min Sodium 131 (L) 135 - 146 mmol/L Potassium 4.6 3.5 - 5.1 mmol/L Chloride 92 (L) 98 - 107 mmol/L CO2 22 22 - 32 mmol/L Anion Gap 17 (H) 7 - 15 mmol/L Glucose 95 70 - 120 mg/dL Calcium 8.7 8.4 - 10.2 mg/dL Albumin 3.7 (L) 3.8 - 5.0 g/dL Phosphorus 8.4 (H) 2.5 - 4.8 mg/dL CBC Result Value Ref Range WBC 7.72 4.00 - 10.80 K/uL RBC 3.16 3.85 - 5.15 M/uL HGB 9.1 (L) 12.0 - 15.3 g/dL HCT 30.1 (L) 36.0 - 45.2 % MCV 95.3 81.5 - 97.5 fL MCH 28.8 27.0 - 34.0 pg MCHC 30.2 32.0 - 36.0 g/dL RDW 16.7 11.5 - 15.5 % PLT 198 140 - 400 K/uL MPV 10.9 6.6 - 11.1 fL nRBCs 0 <=0 /100 WBCs Review of Systems: obtained from patient, staff, and notes. Patient is confused and does not provide reliable history. Constitutional ROS: No change in weight, No fevers, sweats, or chills, and +generalized weakness Eye ROS: No recent significant change in vision and No eye pain, redness, discharge Ear ROS: No ear pain, No drainage, No tinnitus or vertigo, and No recent change in hearing Nose ROS: No history of frequent colds or sinusitis, No nasal stuffiness, No history of Hay Fever, and No significant epistaxis Mouth/Throat ROS: No bleeding gums, No thrush, or No sore throat Pulmonary ROS: No cough, sputum, or hemoptysis, No recent change in breathing, and +COPD and RENÉ Cardiovascular ROS: No chest pain, No orthopnea, No paroxysmal nocturnal dyspnea, No palpitations, No syncope, and +CAD and CHF Gastrointestinal ROS: No abdominal pain, No change in bowel habits, No significant heartburn, No significant change in appetite, No nausea, vomiting, diarrhea, or constipation, No hematemesis, No blood in stools or black tarry stools, and No dysphagia Genito-Urinary Female ROS: No dysuria Musculoskeletal/Extremities ROS: No pain, redness or swelling on the joints Hematologic/Lymphatic ROS: +anemia of CKD Skin/Integumentary ROS: No rash Neurologic ROS: +Parkinson's disease and dementia Endocrine ROS: +type 2 diabetes and hypothyroidism Psychiatric ROS: +depression ADL skills: dependent Ambulates non ambulating OBJECTIVE: PHYSICAL EXAM: I reviewed the most recent facilities vitals. Refer to vital signs flowsheet in prison chart.General: alert, no distress, and chronically ill morbidly obese female resting in bed Head: Normocephalic, No masses, lesions, tenderness or abnormalities Eye Exam: PERRLA, extraocular movements intact, conjunctiva are pink and non- injected, sclera clear Ears: External ears normal Nose: no mucosal erythema, no mucosal edema, no purulent discharge Oropharynx: no exudate, no erythema, lips, buccal mucosa, and tongue normal, and mucous membranes are moist Neck: supple, no adenopathy, no bruits Heart: regular rate & rhythm, no murmur, and no gallops Lungs: chest symmetric with normal AP diameter, no chest deformities noted, no chest wall tenderness, lungs clear to auscultation Abdomen: abdomen soft, non-tender, normal bowel sounds, and no masses or organomegaly Extremities: no edema, no clubbing, no cyanosis, +long toenails and thickened callus of left inner heel area Neuro Exam: no focal motor/sensory deficits, alert, cooperative, oriented x 1 ASSESSMENT: AVF (arteriovenous fistula) ([facility]) (Primary)--s/p angioplasty 03/09/23. Not to be used for 1 month. Follow-up with vascular surgery prior to using AV fistula (which was to be in approximately 1 month). ESRD (end stage renal disease) on dialysis ([facility])--has tunneled catheter in place. [facility]. Diabetes mellitus with ESRD (end-stage renal disease) ([facility])--blood sugars normal while admitted. Not currently on medication 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[facility])--oriented to person. Continue Sinemet. Follows with neurology. COPD, group B, by GOLD 2017 classification ([facility])--continue oxygen via nasal cannula and Breo. Anemia in end-stage renal disease--follows with hematology. Has had issues with rectal bleeding andis on hemorrhoidal treatments as needed. Morbid (severe) obesity due to excess calories ([facility])-stable AYSHA (generalized anxiety disorder)--continue sertraline 100 mg daily 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 factor ([facility])--not currently on DMARDs. Primary parkinsonism--continue Sinemet 25/100 mg TID Steatohepatitis, non-alcoholic--stable. PLAN: 1. Continue present medication(s): Discontinue medication(s): mupirocin as course of treatment complete 2. Admission orders, medications, labs, hospital records and care plan reviewed. 3. Boom Conveyor Operator consult, Physical Therapy, Occupational Therapy, and Speech Therapy ordered. 4. Care plan reviewed. 5. Advance Directives were discussed: Full Code 6. Snf Home Treatment Given: n/a Electronically signed by: Howie Gilbert MD I spent a total of 48 minutes coordinating, documenting, and providing care for this patient excluding time spent in the performance of separately billed services or time spent by another provider/QHP. documented in this encounter Plan of Treatment Upcoming Encounters Date Type Department Care Team (Late st Contact Info) Description 03/25/2023 1:30 PM EST Scheduled Telephone [facility] [address] [facility] [place] [address] Bella Garcia, [address] [facility] [place] [id number] 03/25/2023 2:00 PM EST Scheduled Telephone [facility], [facility] [address] [facility] [place] [address] Bella Garcia, [address] [facility] [place] [id number] 05/07/2023 2:20 PM EST Office Visit Family Medicine [address] [place] [phone] Vianca Kitchen MD [address] [place] [address] [place] [id number] 06/10/2023 3:00 PM EDT Laboratory Laboratory [address] [place] [phone] [place] [address] 06/16/2023 2:30 PM EDT Office Visit Hematology/Oncology [facility] [place] [address] [facility] [place] [id number] Cynthia Gonzalez MD [address] [place] [id number] Scheduled Procedures Name Priority Associated Diagnoses Date/Ti [...] as of this encounter Visit Diagnoses Diagnosis AVF (arteriovenous fistula) (HCC)- Primary Arteriovenous fistula, acquired ESRD (end stage renal disease) on dialysis (HCC) End stage renal disease 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) Type II or unspecified type diabetes mellitus with renal manifestations, not stated as uncontrolled 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HCC) COPD, group B, by GOLD 2017 classification (HCC) Anemia in end-stage renal disease Anemia in chronic kidney disease Morbid (severe) obesity due to excess calories (HCC) AYSHA (generalized anxiety disorder) Generalized anxiety disorder 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 factor (HCC) Primary parkinsonism Paralysis agitans Steatohepatitis, non-alcoholic Other chronic nonalcoholic liver disease documented in this encounter Advance Directives Documents on File Type Date Recorded 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 No Healthcare Agents on File Name Relationship Healthcare [facility] Communication Wesley Hassan Spouse Health Care Agent Care Teams Director Internal Control Relationship Specialty Start Date End Date Bella Power MD [address] [place] [address] [place] [address] PCP - General Family Medicine 04/02/19 documented as of this encounter
--- OUTSIDE RECORDS SUMMARY | 2023-05-23 20:02 | External Medical Summary | Summary of Care ---
Author Name Unknown Organization [facility] Address [address] [facility] [place] [address] Phone [phone] Care Team Providers Care Devulcanizer Tender Name Role Phone Bella Power MD Primary Care Prov ider Reason for Visit * Reason Onset Date Comments [facility]: Maintenance 03/25/2023 Encounter Details Date Type Department Care Team (Late st Contact Info) Description 03/25/2023 1:30 PM EST Scheduled Telephone [facility], [facility] [address] [facility] [place] [address] Bella Garcia, [address] [facility] [place] [address] Allergies No known active allergiesdocumented as of this encounter (statuses as of 03/25/2023) Medications Medication Sig Dispensed Refills Start Date [...] 1 Each 1 11/27/2018 Active DIURETIC TITRATION PLANIndications:Copy Coordinator sandor heart failure with preserved ejection fraction (HCC) [...] WRAP) 30 g 11 11/09/2022 Active Nystatin 579375 UNIT/GM External Powder (Nystop) Apply topically to [...] as of this encounter (statuses as of 03/25/2023) Active Problems Problem Noted Date Diagnosed Date [...] as of this encounter (statuses as of 03/25/2023) Resolved Problems Problem Noted Date Diagnosed Date [...] as of this encounter (statuses as of 03/25/2023) Immunizations Name Administration Dates Next Due COVID-19 mRNA, LNP-s, No Pre serve, 2-Dose Series ([employer]) 01/02/2021,06/21/2020,05/24/2020 COVID-19, mRNA, LNP-s, PF, B ooster, [...] No 03/09/2023 documented as of this encounter Miscellaneous Notes * Telephone Encounter - Bella Garcia CM - 03/25/2023 10:33 AM EST [facility] Confirmed that patient is still at facility. Transferred to . Spoke with Asiya. Pt is going to remain at facility for LTC. CW will route to care team and close EOC Bella Garcia Brick Machine Operator [facility] [email or web address] documented in this encounter Plan of Treatment Upcoming Encounters Date Type Department Care Team (Late st Contact Info) Description 05/07/2023 2:20 PM EST Office Visit [address] [phone] Vianca Kitchen MD [address] [place] [address] [place] [address] 06/10/2023 3:00 PM EDT Laboratory Laboratory [address] [place] [phone] [place] [address] 06/16/2023 2:30 PM EDT Office Visit Hematology/Oncology 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 No Healthcare Agents on File Name Relationship Healthcare Agent Relationshi p Communication Wesley Hassan Spouse Health Care Agent Care Teams Devulcanizer Tender Relationship Specialty Start Date End Date Bella Power MD [address] [place] [address] [place] [address] PCP - General Family Medicine 04/02/19 documented as of this encounter
--- OUTSIDE RECORDS SUMMARY | 2023-05-23 20:02 | External Medical Summary | Summary of Care ---
Author Name Unknown Organization [facility] Address [address] [place] [address] Phone [phone] Care Team Providers Care Nurse Practitioner Physician Assistant Name Role Phone Bella Power MD Primary Care Prov ider Encounter Details Date Type Department Care Team (Late st Contact Info) Description 03/31/2023 Orders Only Lab Mobile Phlebotomy [facility] [address] [place], [place] [id number] Howie Gilbert MD [address] [place] [address] [place] [address] Anemia* Allergies No known active allergiesdocumented as of [...] 1 Each 1 11/27/2018 Active DIURETIC TITRATION PLANIndications:Inspector Publications sandro heart failure with preserved ejection fraction [...] WRAP) 30 g 11 11/09/2022 Active Nystatin 626585 UNIT/GM External Powder (Nystop) Apply topically to [...] mRNA, LNP-s, No Pre serve, 2-Dose Series ([email or web address]) 01/02/2021,06/21/2020,05/24/2020 COVID-19, mRNA, LNP-s, PF, B ooster, [...] Care Team (Late st Contact Info) Description 03/31/2023 8:20 AM EST Laboratory Lab Mobile Phlebotomy [address] [place] [address] Arrived 05/07/2023 2:20 PM EST Office Visit Family Medicine [address] [place] [phone] Vianca Kitchen MD [address] [place] [address] [place] [address] 06/10/2023 3:00 PM EDT Laboratory Laboratory [address] [place] [phone] [place] [address] 06/16/2023 2:30 PM EDT Office Visit Hematology/Oncology [place] [address] [place] [address] Cynthia Gonzalez MD [address] [facility] [place] [address] Scheduled Orders Name Type Priority Associated Diagnoses Orde r Schedule CBC Lab Routine Anemia Expected: 04/01/2023, Expires: 5 Scheduled Procedures Name Priority Associated Diagnoses Date/Ti [...] as of this encounter Visit Diagnoses Diagnosis Anemia- Primary Anemia, unspecified documented in this encounter Advance Directives Documents on File Type Date Recorded 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 No Healthcare Agents on File Name Relationship Healthcare Agent Relationshi p Communication Wesley Hassan Spouse Health Care Agent Care Teams Nurse Practitioner Physician Assistant Relationship Specialty Start Date End Date Bella Power MD [address] [place] [address] [place] [address] PCP - General Family Medicine 04/02/19 documented as of this encounter
--- OUTSIDE RECORDS SUMMARY | 2023-05-23 20:02 | External Medical Summary | Summary of Care ---
Author Name Unknown Organization [facility] [address] [facility] [address] Phone [phone] Care Team Providers Care Director Case Name Role Phone Bella Power MD Primary Care Prov ider Reason for Visit * Reason Onset Date Comments [facility] Visit - Admission 03/19/2023 Encounter Details Date Type Department Care Team (Latest Contact Info) Description 03/19/2023 8:30 AM EST [facility] Visit [address] [place] [address] Howie Gilbert MD [address] [place] [address] [place] [address] AVF (arteriovenous fistula) ([facility])*; ESRD (end stage renal disease) on dialysis ([facility]); Diabetes mellitus with ESRD (end-stage renal disease) ([facility]); 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[facility]); COPD, group B, by GOLD 2017 classification ([facility]); Anemia in end-stage renal disease ; Morbid (severe) obesity due to excess calories ([facility]); AYSHA (generalized anxiety disorder); 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 factor ([facility]); Primary parkinsonism; Steatohepatitis, non-alcoholic Allergies No known [...] PD, group B, by GOLD 2017 classification ([facility]) Inhale via nebulizer. Use as directed. [...] )Indications:COPD, group B, by GOLD 2017 classification ([facility] [...] Active Docusate Sodium 100 MG Oral Capsule (Colace)Indication s:Chronic idiopathic constipation TAKE ONE CAPSULE BY MOUTH IN THE MORNING AND ONE CAPSULE BEFORE BEDTIME 60 Capsule 5 3 024 Active Sertraline HCl 100 MG Oral Tablet (Zoloft) TAKE ONE TABLET BY MOUTH IN THE MORNING 30 Tablet 5 3 024 Active Levothyroxine Sodium 125 MCG Oral Tablet (Levoxyl) TAKE 1 TABLET BY MOUTH DAILY AT LEAST 30 MINUTES PRIOR TO FIRST MEAL OF THE DAY OR OTHER MEDICATIONS. 90 Tablet 3 3 024 Active Atorvastatin Calcium 80 MG Oral Tablet (Lipitor) TAKE 1 TABLET BY MOUTH DAILY. 90 Tablet 1 3 024 Active Carbidopa-Levodopa 25-100 MG Oral Tablet (Sinemet) TAKE ONE TABLET BY MOUTH THREE TIMES A DAY WITH MEALS 90 Tablet 5 3 024 Active Lidocaine-Prilocai ne 2.5-2.5 % External Cream (Emla) APPLY SMALL AMOUNT TO ACCESS SITE (AVF) 1 TO 2 HOURS BEFORE DIALYSIS. COVER WITH OCCLUSIVE DRESSING (SARAN WRAP) 30 g 11 3 Active Nystatin 776728 UNIT/GM External Powder (Nystop) Apply topically to [...] BY MOUTH DAILY 90 Tablet 3 3 024 Active CPAP every night at bedtime. 0 Active Coloplast PasteIndications:H emorrhoids, external without complications Use to hemorrhoids 1-2 times per day as needed for hemorrhoids 57 g 3 3 Active Hydrocortisone (Perianal) 2.5 % External Cream (Procto-Med HC)Indications:Hem orrhoids, external without complications Administer into the rectum daily as needed for Hemorrhoids. 28 g 2 3 Active Pregabalin 100 MG Oral Capsule (Lyrica)Indication s:Primary parkinsonism Take 1 capsule by mouth twice daily. May take 1 extra capsule after dialysis 3 days a week 72 Capsule 5 4 Active Mupirocin 2 % External Ointment (Bactroban) apply one application externally twice daily 22 g 0 3 024 Discontinued Pregabalin 100 MG Oral Capsule (Lyrica)Indication s:Primary parkinsonism Take 1 capsule by mouth twice daily. May take 1 extra capsule after dialysis. 90 Capsule 1 3 024 Discontinued(Re fill) documented as of this encounter (statuses as [...] on the pl SDH (subdural hematoma) 04/20/2019 05/2 03/2019 Overview: acute Ecchymosis 04/20/2019 09/08/2020 Old myocardial [...] mRNA, LNP-s, No Pre serve, 2-Dose Series ([employer]) 01/02/2021,06/21/2020,05/24/2020 COVID-19, mRNA, LNP-s, PF, B ooster, [...] This note pertains to care provided at [facility]. Please see facility medical record for original note. This note is not to be edited or addended in [employer]. Editing or addending needs to occur in the facilities medical record. 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 Recently admitted to [facility] on 03/09/23 because of malfunction of right AV fistula and was transferred here and admitted on 03/18/2023. Patient of Dr. 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 after the AV fistula in her right arm used for dialysis could not be accessed. The AV fistula could not be cannulized despite multiple attempts. She was then transferred to [facility] for fistulogram and vascular surgery evaluation. Patient [...] at this time and will likely require assisted care. She remains on a 1500 ml [...] involving both hands with positive rheumatoid factor ([facility]) M05.741, M05.742 Primary parkinsonism G20.C History of non-ST elevation myocardial infarction (NSTEMI) I25.2 Venous stasis dermatitis of both lower extremities I87.2 COPD, group B, by GOLD 2017 classification ([facility]) J44.9 Chronic heart failure with preserved ejection fraction ([facility]) I50.32 Iron deficiency anemia due to chronic blood loss D50.0 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 ([facility]) I13.2, I50.40, Z99.2, N18.6 Diabetes mellitus with ESRD (end-stage renal disease) ([facility]) E11.22, N18.6 Personal history of fall Z91.81 History of CVA (cerebrovascular accident) Z86.73 AVF (arteriovenous fistula) ([facility]) 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[facility]) G20.A1, F02.80 Palliative care encounter Z51.5 Acquired hypothyroidism E03.9 Serrated polyp of colon K63.5 ESRD (end stage renal disease) on dialysis ([facility]) N18.6, Z99.2 Chronic kidney disease-mineral and bone disorder N18.9, E83.9, M89.9 Anemia in end-stage renal disease N18.6, D63.1 Morbid (severe) obesity due to excess calories ([facility]) E66.01 Current Outpatient Medications Medication Sig Dispense Refill ONETOUCH DELICA LANCETS 33G MISC Up to 4 times daily 100 Each 6 Glucose Blood (ONETOUCH ULTRA BLUE) STRP Use as directed 4 times a day as needed (Diabetes). Use upto four times a day as directed 100 Strip 11 Nebulizers (NEBULIZER COMPRESSOR) [facility] Inhale via nebulizer. Use as directed. 1 [...] DRESSING (SARAN WRAP) 30 g 11 Nystatin 247280 UNIT/GM External Powder (Nystop) Apply topically to [...] performed by Garrett Chang MD at ENDOSCOPY [facility] EGD, FLEXIBLE, DIAGNOSTIC 04/19/2022 esophagitis, repeat 8-12 wks / [facility] EGD, FLEXIBLE, DIAGNOSTIC 06/26/2022 normal, retained food / [facility] EXPLORATION OF MAXILLARY SINUS 03/17/1995 Sinus Surgery HYSTEROSCOPY,DIAGNOSTIC 2022 atrophic endometrium, endometrial polyp INJECTION LUMBAR/SACRAL 07/31/2015 INJECTION SPINE LUMBAR OR SACRAL performed by Quincy Prado DO at OR [facility] INJECTION LUMBAR/SACRAL 08/15/2015 INJECTION SPINE LUMBAR OR SACRAL performed by Quincy Prado DO at OR [facility] INSER MARLI CAT,W/O PUMP;5YR/OLD N/A 11/04/2019 INSERT TUNNELED CENTRAL VENOUS CATHETER AGE 6 OR OLDER performed by Ortega Montez DO at OR [facility] INSER MARLI CAT,W/O PUMP;5YR/OLD Right 03/09/2023 INSERT TUNNELED CENTRAL VENOUS CATHETER AGE 6 OR OLDER performed by Fred Brown MD at OR [facility] INTRO CATH DIALYSIS CIRCUIT W/TRANSLUM BALLOON ANGIOPLASTY Right 03/09/2023 AV FISTULOGRAM & PERIPHERAL ANGIOPLASTY performed by Fred Brown MD at OR [facility] LIGATE/CUT OVIDUCT(S) MISCELLANEOUS ORDER ([facility] ONLY) Bilateral Heel surgery MISCELLANEOUS ORDER ([facility] ONLY) Right 3rd toe nerve decompression, Dr. Del Real [place] COLSC FLX W/RMVL OF TUMOR POLYP LESION [...] vitals. Refer to vital signs flowsheet in m[facility]p chart.General: alert, no distress, and chronically ill [...] oriented x 1 ASSESSMENT: AVF (arteriovenous fistula) ([facility]) (Primary)--s/p angioplasty 03/09/23. Not to be used for 1 month. Follow-up with vascular surgery prior to using AV fistula (which was to be in approximately 1 month). ESRD (end stage renal disease) on dialysis ([facility])--has tunneled catheter in place. [facility]. Diabetes mellitus with ESRD (end-stage renal disease) ([facility])--blood sugars normal while admitted. Not currently on medication 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[facility])--oriented to person. Continue Sinemet. Follows with neurology. COPD, group B, by GOLD 2017 classification ([facility])--continue oxygen via nasal cannula and Breo. Anemia in end-stage renal disease--follows with hematology. Has had issues with rectal bleeding andis on hemorrhoidal treatments as needed. Morbid (severe) obesity due to excess calories ([facility])-stable AYSHA (generalized anxiety disorder)--continue sertraline 100 mg daily 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 factor ([facility])--not currently on DMARDs. Primary parkinsonism--continue Sinemet 25/100 mg TID Steatohepatitis, non-alcoholic--stable. PLAN: 1. Continue present medication(s): Discontinue medication(s): mupirocin as course of treatment complete 2. Admission orders, medications, labs, hospital records and care plan reviewed. 3. Commodity Lead consult, Physical Therapy, Occupational Therapy, and Speech Therapy ordered. 4. Care plan reviewed. 5. Advance Directives were discussed: Full Code 6. [facility] Treatment Given: n/a Electronically signed by: Howie Gilbert MD I spent a total of 48 minutes coordinating, documenting, and providing care for this patient excluding time spent in the performance of separately billed services or time spent by another provider/QHP. documented in this encounter Miscellaneous Notes * Addendum Note - Howie Gilbert MD - 03/19/2023 3:51 PM ESTAddended by: HOWIE GILBERT on: 03/19/2023 03:51 PM Modules accepted: Orders documented in this encounter Plan of Treatment Upcoming Encounters Date Type Department Care Team (Late st Contact Info) Description 03/20/2023 1:30 PM EST [facility] Visit [address] [address] Irma Johns PA-C [address] [place] [address] 03/25/2023 1:30 PM EST Scheduled Telephone [facility], [facility] [address] [facility] [place] [address] Bella Garcia [address] [facility] [place] [address] 03/25/2023 2:00 PM EST Scheduled Telephone [facility], [facility] [address] [place] [address] Bella Garcia [address] [facility] [place] [address] 05/07/2023 2:20 PM EST Office Visit Family Medicine [address] [place] [phone] Vianca Kitchen MD [address] [place] [address] [place] [address] 06/10/2023 3:00 PM EDT Laboratory Laboratory [address] [place] [phone] [place] [address] 06/16/2023 2:30 PM EDT Office Visit Hematology/Oncology [facility] [address] [place] [address] Cynthia Gonzalez MD [address] [place] [address] Scheduled Procedures Name Priority Associated Diagnoses Date/Ti [...] on File Type Date Recorded 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 No Healthcare Agents on File Name Relationship Healthcare Agent Relationshi p Communication Wesley Hassan Spouse Health Care Agent Care Teams Director Case Relationship Specialty Start Date End Date Bella Power MD [address] [place] [address] [place] [phone] PCP - General Family Medicine 04/02/19 documented as of this encounter
--- OUTSIDE RECORDS SUMMARY | 2023-05-23 20:02 | External Medical Summary | Continuity Of Care Document ---
Author Name Unknown Address [address] [place] [address] Organization [facility] ( ) Care Team Providers Care Monorail [place] Name Role Phone VladimirChris [email or web address] Primary Care Provider [phone] Problems Code Description Start Date End Date Status N18.6 End stage renal disease 03/18/2023 A ctive I77.0 Arteriovenous fistula, acquired 03/18/2023 Active Z49.01 Encounter for timmytin g and adjustment of extracorporeal dialysis catheter [...] Rheumatoid arthritis, unspecified 03/18/2023 00 / Active VITAL SIGNS Date Time Diastolic blood pressure Systolic blood pressure Body height Body weight Temperature SpO2 Blood Sugar Pulse Respirations 102 88769 5 41965 102 29805 0 64.00 mm[Hg] - Sitting 124.00 mm[Hg] - Sitting 231.50 NI 98.50 Ear 94.00 % 74.00/ min 18.00/min 102 95266 6 64.00 mm[Hg] - Lying Down 110.00 mm[Hg] - Lying Down 231.50 NI 98.10 Ear 94.00 % 78.00/ min 18.00/min 103 59940 4 64.00 mm[Hg] - Lying Down 110.00 mm[Hg] - Lying Down 62 NI 231.50 NI 98.10 Ear 94.00 % 78.00/ min 18.00/min 103 35219 7 53.00 mm[Hg] - Sitting 97.00 mm[Hg] - Sitting 62 NI 231.50 NI 98.60 Ear 94.00 % 50.00/ min 18.00/min 103 82687 3 53.00 mm[Hg] - Sitting 97.00 mm[Hg] - Sitting 62 NI 237.50 NI 98.60 Ear 94.00 % 50.00/ min 18.00/min 103 82000 5 53.00 mm[Hg] - Sitting 97.00 mm[Hg] - Sitting 62 NI 237.00 NI 98.60 Ear 94.00 % 50.00/ min 18.00/min 103 39836 4 53.00 mm[Hg] - Sitting 97.00 mm[Hg] - Sitting 62 NI 237.00 NI 98.60 Ear 94.00 % 50.00/ min 18.00/min 103 27195 9 53.00 mm[Hg] - Sitting 97.00 mm[Hg] - Sitting 62 NI 237.00 NI 98.60 Ear 94.00 % 50.00/ min 18.00/min 103 84180 9 56.00 mm[Hg] - Sitting 111.00 mm[Hg] - Sitting 62 NI 237.00 NI 98.10 Oral 91.00 % 59.00/ min 18.00/min 22162 104 06277 8 56.00 mm[Hg] - Sitting 114.00 mm[Hg] - Sitting 62 NI 237.00 NI 97.90 Ear 94.00 % 56.00/ min 18.00/min 32222 104 53340 3 56.00 mm[Hg] - Lying Down 114.00 mm[Hg] - Lying Down 62 NI 233.00 NI 97.90 Ear 94.00 % 56.00/ min 18.00/min
--- OUTSIDE RECORDS SUMMARY | 2023-05-23 20:02 | External Medical Summary | Continuity Of Care Document ---
Author Name Unknown Address [address] [place] [address] Organization [facility] ( ) Care Team Providers Care Carbon Coating Machine Operator Name Role Phone VladimirCrhis higginbothamkoko Primary Care Provider [phone] Problems Code Description Start Date End Date [...] Temperature SpO2 Blood Sugar Pulse Respirations 102 59765 5 95976 102 42720 0 64.00 mm[Hg] - Sitting 124.00 mm[Hg] - Sitting 231.50 NI 98.50 Ear 94.00 % 74.00/ min 18.00/min 102 16840 6 64.00 mm[Hg] - Lying Down 110.00 mm[Hg] - Lying Down 231.50 NI 98.10 Ear 94.00 % 78.00/ min 18.00/min 103 06847 4 64.00 mm[Hg] - Lying Down 110.00 mm[Hg] - Lying Down 62 NI 231.50 NI 98.10 Ear 94.00 % 78.00/ min 18.00/min 103 49625 7 53.00 mm[Hg] - Sitting 97.00 mm[Hg] - Sitting 62 NI 231.50 NI 98.60 Ear 94.00 % 50.00/ min 18.00/min 103 79750 3 53.00 mm[Hg] - Sitting 97.00 mm[Hg] - Sitting 62 NI 237.50 NI 98.60 Ear 94.00 % 50.00/ min 18.00/min 103 48338 5 53.00 mm[Hg] - Sitting 97.00 mm[Hg] - Sitting 62 NI 237.00 NI 98.60 Ear 94.00 % 50.00/ min 18.00/min 103 59490 4 53.00 mm[Hg] - Sitting 97.00 mm[Hg] - Sitting 62 NI 237.00 NI 98.60 Ear 94.00 % 50.00/ min 18.00/min 103 37219 9 53.00 mm[Hg] - Sitting 97.00 mm[Hg] - Sitting 62 NI 237.00 NI 98.60 Ear 94.00 % 50.00/ min 18.00/min 103 30379 9 56.00 mm[Hg] - Sitting 111.00 mm[Hg] - Sitting 62 NI 237.00 NI 98.10 Oral 91.00 % 59.00/ min 18.00/min 20996 104 81574 8 56.00 mm[Hg] - Sitting 114.00 mm[Hg] - Sitting 62 NI 237.00 NI 97.90 Ear 94.00 % 56.00/ min 18.00/min 104 14063 3 56.00 mm[Hg] - Lying Down 114.00 mm[Hg] - Lying Down 62 NI 233.00 NI 97.90 Ear 94.00 % 56.00/ min 18.00/min Immunizations Vaccine Date Status COVID-19 05/24/2020 Completed COVID-19 06/21/2020 Completed COVID-19 01/02/2021 Completed COVID-19 07/23/2021 Completed COVID-19 07/24/2021 Completed COVID-19 01/17/2022 Completed Influenza 01/01/2023 Completed (PCV13)Pneumococcal 10/28/2014 Completed (PPSV23)Pneumococcal 03/22/2016 Completed Shingles 10/23/2011 Completed TDaP 06/27/2009 Completed
--- OUTSIDE RECORDS SUMMARY | 2023-05-23 20:02 | External Medical Summary | Summary of Care ---
Author Name Unknown Organization [facility] Address [address] [facility] [place] [address] Phone [phone] Care Team Providers Care Export Traffic Department Manager Name Role Phone Bella Power MD Primary Care Prov ider Reason for Visit * Reason Onset Date Comments [facility]: Maintenance 03/25/2023 Encounter Details Date Type Department Care Team (Late st Contact Info) Description 03/25/2023 1:30 PM EST Scheduled Telephone [facility], [facility] [address] [facility] [place] [address] Bella Garcia, [address] [facility] [place] [address] Allergies No known active allergiesdocumented as of [...] 1 Each 1 11/27/2018 Active DIURETIC TITRATION PLANIndications:Roof Shingler sandro heart failure with preserved ejection fraction [...] WRAP) 30 g 11 11/09/2022 Active Nystatin 677080 UNIT/GM External Powder (Nystop) Apply topically to [...] mRNA, LNP-s, No Pre serve, 2-Dose Series ([place]) 01/02/2021,06/21/2020,05/24/2020 COVID-19, mRNA, LNP-s, PF, B ooster, [...] 03/25/2023 10:33 AM EST Call placed to [facility]. Confirmed that patient is still at facility. Transferred to . Spoke with Asiya. Pt is going to remain at facility for LTC. CW will route to care team and close EOC Bella Garcia Mold Stamper [facility] [email or web address] documented in this encounter Plan of Treatment Upcoming Encounters Date Type Department Care Team (Late st Contact Info) Description 05/07/2023 2:20 PM EST Office Visit [address] [phone] Vianca Kitchen MD [address] [place] [address] [place] [address] 06/10/2023 3:00 PM EDT Laboratory Laboratory [address] [place] [phone] [place] [address] 06/16/2023 2:30 PM EDT Office [facility] [address] [place] [address] Cynthia Gonzalez MD [address] [place] [address] Scheduled Procedures Name Priority Associated Diagnoses Date/Ti [...] Documents on File Type Date Recorded 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 No Healthcare Agents on File Name Relationship Healthcare Agent Relationshi p Communication Wesley Hassan Spouse Health Care Agent Care Teams Export Traffic Department Manager Relationship Specialty Start Date End Date Bella Power MD [address] [place] [address] [place] [address] PCP - General Family Medicine 04/02/19 documented as of this encounter
--- OUTSIDE RECORDS SUMMARY | 2023-05-23 20:02 | External Medical Summary | Continuity Of Care Document ---
Author Name Unknown Address [address] [place] [address] Organization [facility] ( ) Care Team Providers Care Auto Refinisher Name Role Phone Vladimir Chriskoko Primary Care Provider [phone] VITAL SIGNS Date Time Diastolic blood pressure Systolic blood pressure Body height Body weight Temperature SpO2 Blood Sugar Pulse Respirations 58036 102 87754 5 21561 102 01053 0 64.00 mm[Hg] - Sitting 124.00 mm[Hg] - Sitting 231.50 NI 98.50 Ear 94.00 % 18.00/min 95526 102 36785 6 64.00 mm[Hg] - Lying Down 110.00 mm[Hg] - Lying Down 98.10 Ear 78.00/ min 18.00/min 59581 103 53572 4 62 NI 37582 103 76623 7 53.00 mm[Hg] - Sitting 97.00 mm[Hg] - Sitting 98.60 Ear 50.00/ min 18.00/min 76107 103 36341 3 237.50 NI 70568 103 07367 5 237.00 NI 78136 103 66824 4 53.00 mm[Hg] - Sitting 97.00 mm[Hg] - Sitting 98.60 Ear 50.00/ min 17080 103 99696 9 18.00/mi n 23469 103 49063 9 56.00 mm[Hg] - Sitting 111.00 mm[Hg] - Sitting 98.10 Oral 91.00 % 59.00/ min 37399 104 47151 8 56.00 mm[Hg] - Sitting 114.00 mm[Hg] - Sitting 97.90 Ear 94.00 % 56.00/ min 35152 104 12161 3 56.00 mm[Hg] - Lying Down 114.00 mm[Hg] - Lying Down 233.00 NI 97.90 Ear 56.00/ min 18.00/min
--- OUTSIDE RECORDS SUMMARY | 2023-05-23 20:02 | External Medical Summary ---
Author Name Unknown Address Unknown Organization [facility] [address] [place] [address] Laboratory Report Ordering Provider Test Date Status SIRISHA PRESCOTT 03/31/2023 06:10:00 Final Observation Date Value Abnormality Reference (Units ) Status WBC, Total 03/31/2023 06:10:00 15.98 Above high normal 4 .00-10.80 (K/uL) Final RBC 03/31/2023 06:10:00 3.45 3.85-5.15 (M/uL) Final Hemoglobin 03/31/2023 06:10:00 10.0 Below low normal 12 .0-15.3 (g/dL) Final HCT 03/31/2023 06:10:00 33.1 Below low normal 36. 0-45.2 (%) Final MCV 03/31/2023 06:10:00 95.9 81.5-97.5 (fL) Final MCH 03/31/2023 06:10:00 29.0 27.0-34.0 (pg) Final MCHC 03/31/2023 06:10:00 30.2 32.0-36.0 (g/dL) Final RDW 03/31/2023 06:10:00 16.1 11.5-15.5 (%) Final Platelets 03/31/2023 06:10:00 264 140-400 (K /uL) Final MPV 03/31/2023 06:10:00 11.9 6.6-11.1 ( fL) Final Performing Location [facility] [address] [place] [address]
--- OUTSIDE RECORDS SUMMARY | 2023-05-23 20:02 | External Medical Summary | Summary of Care ---
Author Name Unknown Organization [facility] Address [address] [facility] [place] [address] Phone [phone] Care Team Providers Care Electromechanical Engineer Name Role Phone Bella Power MD Primary Care Prov ider Reason for Visit * Reason Onset Date Comments Snf Visit 03/28/2023 Encounter Details Date Type Department Care Team (Latest Contact Info) Description 03/28/2023 9:00 AM EST Snf Visit [facility] [address] [place] [address] Nae Rodriges PA-C [address] [place] [address] Rectal bleeding*; Internal hemorrhoid; 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[facility]); ESRD (end stage renal disease) on dialysis ([facility]) Allergies No known active allergiesdocumented as of this encounter (statuses as of 03/28/2023) Medications Medication Sig Dispensed Refills Start Date [...] , group B, by GOLD 2017 classification ([facility]) Inhale via nebulizer. Use as directed. 1 Each 11/27/2018 Active DIURETIC TITRATION PLANIndications:Hand Drawer In sandro heart failure with preserved ejection fraction [...] ndications:COPD, group B, by GOLD 2017 classification ([facility]) Inhale by mouth 1 Puff [...] WRAP) 30 g 11 11/09/2022 Active Nystatin [id number] UNIT/GM External Powder (Nystop) Apply topically to [...] as of this encounter (statuses as of 03/28/2023) Active Problems Problem Noted Date Diagnosed Date [...] as of this encounter (statuses as of 03/28/2023) Resolved Problems Problem Noted Date Diagnosed Date [...] as of this encounter (statuses as of 03/28/2023) Immunizations Name Administration Dates Next Due COVID-19 [...] Progress Notes * Nae Rodriges PA-C - 03/28/2023 3:40 PM EST Name: Kami Hassan Date of :1945 TRANSITION EVENT: Type: Non-applicable Date: March 28 Code Status: Full Code This note pertains to care provided at [facility]. Please see facility medical record for original note. This note is not to be edited or addended in [facility] [employer]. Editing or addending needs to occur in the facilities medical record. Subjective: Kami Hassan is a 77 year old female. Patient being seen for rectal bleeding Chief Complaint Patient presents with Snf Visit HPI: I was asked to asses pt for bright red rectal bleeding noted by staff today. Pt denies any rectal pain but does have some itching at times. Pt states "I have hemorrhoid even before I got to thisplace". She has Anusol HC cream ordered for prn use. No abdominal pains, nausea, vomiting. Pt has not been constipated. No chills or fever. Staff state they thought pt had dark stools over past several days off and on. Pt is on auryxia due to ESRD. Vital signs stable. CBC Results: Results for orders placed or performed during the hospital encounter of 03/09/23 CBC Result Value Ref Range WBC 7.72 [...] Results Component Value Date/Time [facility] - [facility] 9.1 (L) 03/18/2023 08:22 AM [facility] - [facility] 8.6 (L) 03/11/2023 05:23 AM [facility] - [facility] 8.7 (L) 03/10/2023 05:06 AM [facility] - [facility] 7.9 (L) 02/28/2020 [...] POCT - [facility] 142 01/11/2019 12:09 PM Patient Active Problem List Diagnosis Code ADVANCE DIRECTIVE INFORMATION Meniere's disease, cochlear, active H81.09 Hypothyroidism due to acquired atrophy of thyroid E03.4 Steatohepatitis, non-alcoholic K75.81 Obesity E66.9 Restless leg syndrome G25.81 Dyslipidemia, goal LDL below 100 E78.5 AYSHA (generalized anxiety disorder) F41.1 RENÉ on CPAP G47.33 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 factor ([facility]) M05.741, M05.742 Primary parkinsonism G20.C History of non-ST elevation myocardial infarction (NSTEMI) I25.2 Venous stasis dermatitis of both lower extremities I87.2 COPD, group B, by GOLD 2017 classification ([facility]) J44.9 Chronic heart failure with preserved ejection fraction ([facility]) I50.32 Iron deficiency anemia due to chronic blood loss D50.0 Diabetes mellitus with ESRD (end-stage renal disease) ([facility]) E11.22, N18.6 Personal history of fall Z91.81 History of CVA (cerebrovascular accident) Z86.73 AVF (arteriovenous fistula) ([facility]) 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[facility]) G20.A1, F02.80 Palliative care encounter Z51.5 Acquired hypothyroidism E03.9 Serrated polyp of colon K63.5 ESRD (end stage renal disease) on dialysis ([facility]) N18.6, Z99.2 Chronic kidney disease-mineral and bone disorder N18.9, E83.9, M89.9 Anemia in end-stage renal disease N18.6, D63.1 Morbid (severe) obesity due to excess calories ([facility]) E66.01 Full code status Z78.9 Past Medical History: Diagnosis Date (HFpEF) heart failure with preserved ejection fraction (HCC) Acute on chronic diastolic (congestive) heart failure (HCC) 03/04/2020 [facility] Allergic rhinitis 02/15/2000 acute BMI 38.0-38.9,adult 08/28/2009 Chronic Sinusitis Unspecified Controlled substance agreement signed 11/25/2016 COVID-19 10/23/2021 Cystitis 05/23/2022 admitted [facility] home on cefuroxime Dyslipidemia, goal LDL below 100 Esophagitis determined by biopsy 04/19/2022 LA grade B esophagitis, inflammation gastric antrum, body and duodenum AYSHA (generalized anxiety disorder) Hearing loss, sensorineural 01/2005 History of non-ST elevation myocardial infarction (NSTEMI) 08/24/2018 HTN (hypertension) Meniere's disease Multiple falls 04/20/2019 History of falls on the pl NSTEMI (non-ST elevated myocardial infarction) ([facility]) 09/03/2018 Parkinson disease Rectal bleeding Restless leg syndrome 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 factor ([facility]) 07/18/2016 SDH (subdural hematoma) ([facility]) 04/20/2019 acute Serrated polyp of colon 09/20/2022 7 mm descending colon Sleep apnea Tinnitus 01/2005 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 Del Real CARPAL TUNNEL SURGERY Bilateral COLONOSCOPY, DIAGNOSTIC (RECTUM) 11/27/2015 normal, repeat 10 yrs/COLONOSCOPY FLEXIBLE PROXIMAL DIAGNOSTIC performed by Garrett [facility] MD at [facility] EGD, FLEXIBLE, DIAGNOSTIC 04/19/2022 esophagitis, repeat 8-12 wks / [facility] EGD, FLEXIBLE, DIAGNOSTIC 06/26/2022 normal, retained food / [facility] EXPLORATION OF MAXILLARY SINUS 03/17/1995 [...] performed by Ortega Montez DO at OR [facility] CAT,W/O PUMP;5YR/OLD Right 03/09/2023 INSERT TUNNELED CENTRAL VENOUS CATHETER AGE 6 OR OLDER performed by Fred Brown MD at OR [facility] INTRO CATH DIALYSIS CIRCUIT W/TRANSLUM BALLOON ANGIOPLASTY Right 03/09/2023 AV FISTULOGRAM & PERIPHERAL ANGIOPLASTY performed by Fred Brown MD at OR [facility] LIGATE/CUT OVIDUCT(S) MISCELLANEOUS ORDER ([facility] ONLY) Bilateral Heel surgery MISCELLANEOUS ORDER ([facility] ONLY) Right 3rd toe nerve decompression, Dr. 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 Review of Systems: Constitutional ROS: No change [...] No palpitations and No syncope Gastrointestinal ROS: see HPI Skin/Integumentary ROS: No rash [...] tenderness, lungs clear to auscultation Abdomen: abdomen soft,obese non-tender, normal bowel sounds and no masses or organomegaly Extremities: no edema, no clubbing, no cyanosis Rectal: ASSESSMENT: Rectal bleeding (Primary) Will check CBC next lab draw Internal hemorrhoid Anusol HC 2.5% BID times 7 days Keep BMs soft 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HCC) Stable Continue with Sinemet 25/100 TID ESRD (end stage renal disease) on dialysis (HCC) Continue with dialysis as directed PLAN: Reviewed CBC, BMP, Lytes and Continue present medication(s):as ordered. Correction Home Treatment Given: Lab Draw CBC Electronically signed by: Nae Rodriges PA-C Over 35 minutes were spent in this visit more than half the time was spent counselling or coordinating care. documented in this encounter Plan of Treatment Upcoming Encounters Date Type Department Care Team (Late st Contact Info) Description 05/07/2023 2:20 PM EST Office Visit Family Medicine [address] [place] [phone] Vianca Kitchen MD [address] [place] [address] [place] [address] 06/10/2023 3:00 PM EDT Laboratory Laboratory [address] [place] [phone] [facility] [address] [place] [address] 06/16/2023 2:30 PM EDT Office Visit Hematology/Oncology [facility] [address] [facility] [place] [address] Cynthia Gonzalez MD [address] [place] [address] Scheduled Procedures Name Priority Associated Diagnoses Date/Ti [...] bleeding- Primary Hemorrhage of rectum and anus Internal hemorrhoid Internal hemorrhoids without mention of complication 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HCC) ESRD (end stage renal disease) on dialysis (HCC) End stage renal disease documented in this encounter Advance Directives Documents on File Type Date Recorded Patient Inner Layer Scrubber Tender Expl anation Power of Supervisor [place] 12/16/2018 10:33 AM Nate r of Supervisor [place] Latest Code Status on File Code Status [...] patient have Health Care Power of Supervisor [place]? No Healthcare Agents on File Name Relationship Healthcare Agent Relationshi p Communication Wesley E Eggler Spouse Health Care Agent Care Teams Electromechanical Engineer Relationship Specialty Start Date End Date Bella Power MD [address] [place] [address] [place] [phone] PCP - General Family Medicine 04/02/19 documented as of this encounter
--- OUTSIDE RECORDS SUMMARY | 2023-05-23 20:02 | External Medical Summary | Summary of Care ---
Author Name Unknown Organization [facility] Address [address] [facility] [place] [address] Phone [phone] Care Team Providers Care Telegraph And Teletype Operator Name Role Phone Bella Power MD Primary Care Prov ider Reason for Visit * Reason Onset Date Comments Assisted Visit 03/27/2023 Encounter Details Date Type Department Care Team (Latest Contact Info) Description 03/26/2023 9:30 AM EST Assisted Visit [facility] [address] [place] [address] Nae Rodriges PA-C [address] [place] [address] ESRD (end stage renal disease) on dialysis ([facility])*; 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[facility]); Diabetes mellitus with ESRD (end-stage renal disease) ([facility]); Chronic heart failure with preserved ejection fraction ([facility]) Allergies No known active allergiesdocumented as of this encounter (statuses as of 03/27/2023) Medications Medication Sig Dispensed Refills Start Date [...] , group B, by GOLD 2017 classification ([facility]) Inhale via nebulizer. Use as directed. 1 Each 1 11/27/2018 Active DIURETIC TITRATION PLANIndications:Technical Support Manager sandro heart failure with preserved ejection [...] WRAP) 30 g 11 11/09/2022 Active Nystatin 782649 UNIT/GM External Powder (Nystop) Apply topically to [...] as of this encounter (statuses as of 03/27/2023) Active Problems Problem Noted Date Diagnosed Date [...] as of this encounter (statuses as of 03/27/2023) Resolved Problems Problem Noted Date Diagnosed Date [...] as of this encounter (statuses as of 03/27/2023) Immunizations Name Administration Dates Next Due COVID-19 [...] 2:20 PM EST Office Visit Family Medicine [address] [place] [phone] Vianca Kitchen MD [address] [place] [address] [place] [address] 06/10/2023 3:00 PM EDT Laboratory Laboratory [address] [place] [phone] [place] [address] [place] [address] 06/16/2023 2:30 PM EDT Office Visit Hematology/Oncology [facility] [place] [address] Cynthia Gonzalez MD [address] [facility] [place] [address] Scheduled Procedures Name Priority Associated Diagnoses Date/Ti [...] dialysis (HCC)- Primary End stage renal disease 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HCC) 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) Type II or unspecified type diabetes mellitus with renal manifestations, not stated as uncontrolled Chronic heart failure with preserved ejection fraction (HCC) documented in this encounter Advance Directives Documents on File Type Date Recorded Patient Manager Photo Expl anation Power of Sail Finisher Hand 12/16/2018 10:33 AM Nate r of Sail Finisher Hand Latest Code Status on File Code [...] the patient have Health Care Power of Sail Finisher Hand? No Healthcare Agents on File Name Relationship Healthcare Agent [facility] p Communication Wesley Hassan Spouse Health Care Agent Care Teams Telegraph And Teletype Operator Relationship Specialty Start Date End Date Bella Power MD [address] [place] [address] [place] [address] PCP - General Family Medicine 04/02/19 documented as of this encounter
--- OUTSIDE RECORDS SUMMARY | 2023-05-23 20:03 | External Medical Summary | Continuity Of Care Document ---
Author Name Unknown Address [address] [place] [address] Organization [facility] ( ) Care Team Providers Care Personnel Supervisor Name Role Phone Howie Gilbert Primary Care Provider [phone] VITAL SIGNS Date Time Diastolic blood pressure Systolic blood pressure Body height Body weight Temperature SpO2 Blood Sugar Pulse Respirations 73219 102 87083 5 35194 102 34580 0 64.00 mm[Hg] - Sitting 124.00 mm[Hg] - Sitting 231.50 NI 98.50 Ear 94.00 % 18.00/min 81509 102 75877 6 64.00 mm[Hg] - Lying Down 110.00 mm[Hg] - Lying Down 98.10 Ear 78.00/ min 18.00/min
--- OUTSIDE RECORDS SUMMARY | 2023-05-23 20:03 | External Medical Summary | Continuity Of Care Document ---
Author Name Unknown Address [address] [place] [address] Organization [facility] ( ) Care Team Providers Care Paint Maker Name Role Phone Howie Gilbert Primary Care Provider [phone] VITAL SIGNS Date Time Diastolic blood pressure Systolic blood pressure Body height Body weight Temperature SpO2 Blood Sugar Pulse Respirations 64468 102 02223 5 17236 102 64286 0 64.00 mm[Hg] - Sitting 124.00 mm[Hg] - Sitting 231.50 NI 98.50 Ear 94.00 % 18.00/min 73294 102 67903 6 64.00 mm[Hg] - Lying Down 110.00 mm[Hg] - Lying Down 98.10 Ear 78.00/ min 18.00/min 81141 103 92932 4 62 NI
--- OUTSIDE RECORDS SUMMARY | 2023-05-23 20:03 | External Medical Summary | Continuity Of Care Document ---
Author Name Unknown Address [address] [place] [address] Organization [facility] ( ) Care Team Providers Care Burning Supervisor Name Role Phone Howie Gilbert Primary Care Provider [phone] VITAL SIGNS Date Time Diastolic blood pressure Systolic blood pressure Body height Body weight Temperature SpO2 Blood Sugar Pulse Respirations 78293 102 65415 5 32766 102 52185 0 64.00 mm[Hg] - Sitting 124.00 mm[Hg] - Sitting 231.50 NI 98.50 Ear 94.00 % 18.00/min 57946 102 71393 6 64.00 mm[Hg] - Lying Down 110.00 mm[Hg] - Lying Down 98.10 Ear 78.00/ min 18.00/min
--- OUTSIDE RECORDS SUMMARY | 2023-05-23 20:03 | External Medical Summary | Continuity Of Care Document ---
Author Name Unknown Address [address] [place] [address] Organization [facility] ( ) Care Team Providers Care Die Maker Apprentice Name Role Phone Howie Gilbert Primary Care Provider [phone] VITAL SIGNS Date Time Diastolic blood pressure Systolic blood pressure Body height Body weight Temperature SpO2 Blood Sugar Pulse Respirations 05493 102 57161 5 87468 102 83503 0 64.00 mm[Hg] - Sitting 124.00 mm[Hg] - Sitting 231.50 NI 98.50 Ear 94.00 % 18.00/min 07435 102 19051 6 64.00 mm[Hg] - Lying Down 110.00 mm[Hg] - Lying Down 98.10 Ear 78.00/ min 18.00/min
--- OUTSIDE RECORDS SUMMARY | 2023-05-23 20:03 | External Medical Summary | Summary of Care ---
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 Name Role Phone Bella Power MD Primary Care Prov ider Reason for Visit * Auth/Cert Specialty Diagnoses / Procedures Referred By Contac t Referred To Contact Diagnoses Dialysis AV fistula malfunction (HCC) Problem with dialysis access (HCC) malfunctioning HD fistula Right arm Referral ID Status Reason Start Date Expiration Date Visits Re quested Visits Authorized [id number] Encounter Details Date Type Department Care Team (Latest Contact Info) Description 03/09/2023 3:20 AM EST - 03/18/2023 2:26 PM EST Hospital Encounter [facility]AM 8, [facility] Advanced Medicine 8th Floor [address], [place] [id number] Sheri Ramirez MD [address], [place] [id number] Vidhi Laguerre MD [address], [place] [id number] Leilani Johnson MD [address] [place] [address] EKG Report Discharge Disposition: SNF Allergies No known active allergiesdocumented as of this encounter (statuses as of 03/19/2023) Medications Medication Sig Dispensed Refills Start Date End Date Status ONETOUCH DELICA LANCETS 33G MISC Up to 4 times daily 100 Each 6 11/25/19 15 Active Glucose Blood (ONETOUCH ULTRA BLUE) STRP Use as directed 4 times a day as needed (Diabetes). Use up to four times a day as directed 100 Strip 11 02/04/20 18 Active Nebulizers (NEBULIZER COMPRESSOR) MISCIndications:CO PD, group B, by GOLD 2017 classification ([facility]) Inhale via nebulizer. Use as directed. 1 Each 1 11/28/19 19 Active DIURETIC TITRATION PLANIndications:Ch ronic heart failure with preserved ejection fraction (HCC) If no improvement on day 3, contact heart failure managing provider. 1 Each 0 12/11/19 19 Active Melatonin 10 MG Tablet Take 1 Tablet by mouth every night at bedtime. 0 Active DIURETIC TITRATION PLAN If no improvement on day 3, contact heart failure managing provider. 0 Active acetaminophen (TYLENOL) 325 MG Tablet Take 2 Tabs by mouth every 6 hours as needed for Pain. 30 Tab 0 04/27/19 20 Active Cholecalciferol (VITAMIN D3) 125 MCG (5000 UT) Tablet Take 1 Capsule by mouth in the morning. 0 09/15/19 20 Active EPINEPHrine, Anaphylaxis, 1 MG/ML SOLN Inject 0.3 mL as directed as needed for Anaphylaxis (severe allergic reaction). 0.3 mL 0 10/14/19 20 Active Aspirin 81 MG Oral Tablet Delayed ReleaseIndications :ASCVD (arteriosclerotic cardiovascular disease) Take 2 Tablets by mouth in the morning. 30 Tab 5 12/03/19 20 Active Meclizine HCl 12.5 MG Oral Tablet (ANTIVERT) Take 1 Tablet by mouth 3 times a day as needed. 0 Active Breo Ellipta 200-25 MCG/INH Inhalation Aerosol Powder Breath Activated (fluticasone furoate-vilanterol )Indications:COPD, group B, by GOLD 2017 classification ([facility]) Inhale by mouth 1 Puff in the morning. 60 Each 0 08/23/19 22 Active Auryxia 1 GM 210 MG(Fe) Oral Tablet TAKE 1 TABLET BY MOUTH THREE TIMES A DAY WITH MEALS. SWALLOW WHOLE, DO NOT CHEW OR CRUSH MEDICATION 0 05/11/19 23 Active Nanci-Samuel Oral Tablet Take 1 Tablet by mouth in the morning. 0 05/17/19 23 Active Docusate Sodium 100 MG Oral Capsule (Colace)Indication s:Chronic idiopathic constipation TAKE ONE CAPSULE BY MOUTH IN THE MORNING AND ONE CAPSULE BEFORE BEDTIME 60 Capsule 5 08/07/19 23 024 Active Sertraline HCl 100 MG Oral Tablet (Zoloft) TAKE ONE TABLET BY MOUTH IN THE MORNING 30 Tablet 5 08/22/19 23 024 Active Levothyroxine Sodium 125 MCG Oral Tablet (Levoxyl) TAKE 1 TABLET BY MOUTH DAILY AT LEAST 30 MINUTES PRIOR TO FIRST MEAL OF THE DAY OR OTHER MEDICATIONS. 90 Tablet 3 08/22/19 23 024 Active Atorvastatin Calcium 80 MG Oral Tablet (Lipitor) TAKE 1 TABLET BY MOUTH DAILY. 90 Tablet 1 08/22/19 23 024 Active Mupirocin 2 % External Ointment (Bactroban) apply one application externally twice daily 22 g 0 09/10/19 23 Active Carbidopa-Levodopa 25-100 MG Oral Tablet (Sinemet) TAKE ONE TABLET BY MOUTH THREE TIMES A DAY WITH MEALS 90 Tablet 5 09/15/19 23 024 Active Lidocaine-Prilocai ne 2.5-2.5 % External Cream (Emla) APPLY SMALL AMOUNT TO ACCESS SITE (AVF) 1 TO 2 HOURS BEFORE DIALYSIS. COVER WITH OCCLUSIVE DRESSING (SARAN WRAP) 30 g 11 11/10/19 23 Active Nystatin 380981 UNIT/GM External Powder (Nystop) Apply topically to affected area 2 times a day. 60 g 5 11/10/19 23 Active Pantoprazole Sodium 20 MG Oral Tablet Delayed Release (Protonix) Take 1 Tablet by mouth in the morning and 1 Tablet in the evening. 180 Tablet 1 11/28/19 23 Active Isosorbide Mononitrate ER 30 MG Oral Tablet Extended Release 24 Hour (Imdur) TAKE 1 TABLET BY MOUTH DAILY 90 Tablet 3 01/15/20 23 024 Active Pregabalin 100 MG Oral Capsule (Lyrica)Indication s:Primary parkinsonism Take 1 capsule by mouth twice daily. May take 1 extra capsule after dialysis. 90 Capsule 1 02/13/20 23 Active CPAP every night at bedtime. 0 Active Coloplast PasteIndications:H emorrhoids, external without complications Use to hemorrhoids 1-2 times per day as needed for hemorrhoids 57 g 3 03/13/20 23 Active Hydrocortisone (Perianal) 2.5 % External Cream (Procto-Med HC)Indications:Hem orrhoids, external without complications Administer into the rectum daily as needed for Hemorrhoids. 28 g 2 03/13/20 23 Active Coloplast PasteIndications:H emorrhoids, external without complications Use to hemorrhoids 1-2 times per day 57 g 3 12/06/19 20 023 Discontinued(Re fill) Hydrocortisone (Perianal) 2.5 % External Cream (Procto-Med HC)Indications:Hem orrhoids, external without complications ADMINISTER INTO RECTUM OR APPLY TO EXTERNAL HEMORRHOIDS ONCE DAILY 28 g 2 01/01/20 23 023 Discontinued(Re fill) Erythromycin 5 MG/GM Ophthalmic Ointment apply 1 application into the eye(s) four times daily for 7 days 3.5 g 0 01/28/20 23 023 Discontinued Hydrocortisone Acetate 25 MG Rectal Suppository (Anusol HC) Administer 1 Suppository into the rectum at bedtime. 14 Suppository 3 02/22/20 23 023 Discontinued documented as of this encounter (statuses as of 03/19/2023) Active Problems Problem Noted Date Diagnosed Date Chronic kidney disease-mineral and bone disorder 03/10/2023 Anemia in end-stage renal disease 03/10/2023 UTI (urinary tract infection) 03/09/2023 ESRD (end stage renal disease) on dialysis [...] G/DL -- 9.7* Medication Regimen: o Beta Lucho Therapy: Other: none o HARESH Inhibitor/ARB Therapy: Other: none o Diuretic therapy: Other: HD Self - Management Plan o Other/Additional Comments: hd Exacerbation Plan o Chest X-Ray Venous stasis dermatitis of both lower extremiti es 12/13/2018 History of non-ST elevation myocardial infarctio n (NSTEMI) 08/24/2018 Last Assessment & Plan: Stable. No angina. -continue atorvastatin, baby aspirin. Not on beta-lucho. BP will not tolerate Primary parkinsonism 12/09/2017 Last Assessment & Plan: Continue carbidopa levodopa Rheumatoid arthritis involvi ng both hands with positive rheumatoid factor 07/18/2016 RENÉ on CPAP 04/03/2015 Last Assessment & Plan: Compliant with CPAP Restless leg syndrome 08/14/2012 Type 2 diabetes mellitus wit h hemoglobin A1c goal of less than 7.0% 10/23/2011 Overview: ICD-10 update of inactive term Obesity 08/28/2009 Overview: bmi 40 More specific [...] Date Problem with dialysis access 03/09/2023 03/18/2023 Major depressive disorder, r ecurrent episode, moderate [...] mRNA, LNP-s, No Pre serve, 2-Dose Series (GetBulb) 01/02/2021,06/21/2020,05/24/2020 COVID-19, mRNA, LNP-s, PF, B ooster, [...] Sign Reading Time Taken Comments Blood Pressure 105/35 03/18/2023 11:49 AM EST Pulse 53 03/18/2023 11:49 AM EST Temperature 35.8 C (96.4 F) 03/18/2023 11:[address] Respiratory Rate 20 03/18/2023 11:49 AM EST Oxygen Saturation 99% 03/18/2023 11:49 AM EST Inhaled Oxygen Concentration - - Weight 109.3 kg (241 lb) 03/18/2023 5:44 AM EST Height 157.5 cm (5' 2") 03/09/2023 7:20 AM EST Body Mass Index 44.08 03/09/2023 7:20 AM EST documented in this encounter Functional Status [...] No 03/09/2023 documented as of this encounter Discharge Summaries * Draiana Martinez MD - 03/18/2023 10:57 AM EST [address] [address] Admission Date: 03/09/2023 Discharge Date: 03/18/2023 RECOMMENDED TO DO FOR NEXT PROVIDER(S): Vascular surgery outpatient follow-up ([place]) for follow-up on AV fistula and when appropriate to start re-using the site for hemodialysis. Right interna jugular HD catheter placed to be used for hemodialysis for the next month. Vascular surgery recommending not utilizing AV fistula for the next month. Continue with routine hemodialysis on Friday, , Friday schedule REASON(S) FOR MEDICATION CHANGE(S): None DISPOSITION ON DISCHARGE: [facility] Problems Diagnosis 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 UTI (urinary tract infection) ESRD (end stage renal disease) on dialysis (HCC) 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[facility]) History of CVA (cerebrovascular accident) Diabetes mellitus with ESRD (end-stage renal disease) ([facility]) 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 ([facility]) COPD, group B, by GOLD 2017 classification ([facility]) Chronic heart failure with preserved ejection fraction (HCC) History of non-ST elevation myocardial infarction (NSTEMI) Primary parkinsonism 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 factor (HCC) RENÉ on CPAP Dyslipidemia, goal LDL below 100 AYSHA (generalized anxiety disorder) Type 2 diabetes mellitus with hemoglobin A1c goal of less than 7.0% (HCC) Obesity Hypothyroidism due to acquired atrophy of thyroid Resolved Hospital Problems Diagnosis Date Resolved *Principal Diagnosis - Problem with dialysis access ([facility]) 03/18/2023 ADMISSION HISTORY & PHYSICAL EXAM (focused): Per Admission H&P: Kami French is a 77 year old female with DM, dementia, rheumatoid arthritis, Parkinson syndrome,HTN, ESRD on TTS, hypothyroidism HLD, obesity, RENÉ, GERD, COPD, CHF with history of CVA and OH. presents to the hospital as a transfer from [facility] due to HD fistula dysfunction was not able to be cannulated today after several attempts . Transferred to [facility] for Fistulogram further workup and assessment. From [facility] HPI "Pt admitted to [facility] with dyspnea and did not go to HD in the beginning of the week. She had edema as well. She had HD x 2 consecutive days and was to have HD today but after several attempts to cannulate her HD fistula they were not able. " Results that were sent with the patient showed UTI with E coli that was sensitive to ceftriaxone and blood cultures 2/4 positive for Staphylococcus. Patient currently endorses intermittent SOB and Denies fever, chills, facial droop, stuttering, drooling, cough, dysuria, hematuria, abdominal pain, nausea, vomiting, diarrhea, CP, SOB, melena or other associated symptoms. Constitutional: No Apparent distress HEENT: normocephalic, atraumatic; no masses, tenderness, or adenopathy Eyes: PERRLA, sclera and conjunctiva normal Neck: supple, normal range of motion CV: Normal Rate and Normal Rhythm, no murmur, gallops or rub Chest: normal respiratory effort, lungs clear to auscultation Abdomen: normal: soft, bowel sounds normal, no masses, tenderness or organomegaly Musculoskeletal: (-) negative Extremities: no clubbing, cyanosis, or edema, otherwise grossly normal, warm, and dry Skin: warm, dry, intact: Neuro: alert, oriented to person, place, and time, normal mental status exam Psych: normal mood and affect, nonsuicidal, judgement normal, memory normal HOSPITAL COURSE (focused): The patient was admitted to the hospital for vascular evaluation given AV fistula malfunction. She underwent placement of right internal jugular vein tunneled dialysis catheter and diagnostic fistulogram with peripheral venous angioplasty which found right brachiocephalic fistula with small patent a nastomosis and a stenosis in the proxima portion of the cephalic vein for which underwent angioplasty with satisfactory results. It was recommended by vascular to use the TDC for the next month to allow fistula. Follow up with vascular surgery was recommended at [facility]. Hemodynamically stable and hemodialysis successful through tunneled catheter. Malfunction AVF s/p fistulogram ESRD - tunneled HD catheter placed, utilize this for HD for now - vascular surgery recommend NOT utilizing AVF x 1 month - outpatient vascular surgery follow-up at [facility] - outpatient nephrology follow-up - cont HD on TTS Day of discharge Physical Examination: BP 101/35 | Pulse 42 | Temp 36 C (96.8 F) (Tympanic) | Resp 20 | Ht 1.575 m (5' 2") | Wt 109.3 kg (241 lb) | SpO2 94% | BMI 44.08 kg/m | BSA 2.19 m General: Chronically ill appearing female, no apparent distress HEENT: nisocoria with R pupil being 1-2mm larger than her L pupil, but both are reactive although Lpupil is slightly more sluggish than R. - chronic per patient Neck: No cervical lymphadenopathy appreciated Cardiovascular: Regular rate and rhythm, S1 and S2 present, no murmurs on auscultation Respiratory: Clear to auscultation bilaterally, normal respiratory effort Abdomen: Soft, non-tender, non-distended, normal bowel sounds Extremities: No lower extremity edema Neuro: awake, alert and oriented x 4 but does have a slightly delay in response time to questions. Skin: Warm, dry Operations & Procedures: fistulogram, placement of tunneled dialysis catheter Complications: none significant Significant Lab and Imaging Results: As mentioned above Results Pending at Discharge: Lab Results Pending at Discharge: CULTURE, URINE, QUANTITATIVE Routine MEDICATION UPDATES AT DISCHARGE CHANGE how you take these medications INSTRUCTIONS Coloplast Pste What changed: additional instructions Use to hemorrhoids 1-2 times per day as needed for hemorrhoids hydrocortisone 2.5 % Commonly known as: Procto-Med HC What changed: how to take this when to take this reasons to take this Administer into the rectum daily as needed for Hemorrhoids. CONTINUE taking these medications INSTRUCTIONS Acetaminophen 325 MG Tablet Commonly known as: Tylenol Take 2 Tabs by mouth every 6 hours as needed for Pain. aspirin enteric coated 81 MG Tbec Take 2 Tablets by mouth in the morning. atorvaSTATin 80 MG Tablet Commonly known as: Lipitor TAKE 1 TABLET BY MOUTH DAILY. Auryxia 1 GM 210 MG(Fe) Tabs Generic drug: Ferric Citrate TAKE 1 TABLET BY MOUTH THREE TIMES A DAY WITH MEALS. SWALLOW WHOLE, DO NOT CHEW OR CRUSH MEDICATION BREO ellipta 200-25 MCG/ACT Aepb Generic drug: fluticasone furoate-vilanterol Inhale by mouth 1 Puff in the morning. carbidopa-levodopa 25-100 mg per tab 25-100 MG per tablet Commonly known as: Sinemet TAKE ONE TABLET BY MOUTH THREE TIMES A DAY WITH MEALS CPAP every night at bedtime. DIURETIC TITRATION PLAN If no improvement on day 3, contact heart failure managing provider. DIURETIC TITRATION PLAN If no improvement on day 3, contact heart failure managing provider. Docusate Sodium 100 MG Capsule Commonly known as: Colace TAKE ONE CAPSULE BY MOUTH IN THE MORNING AND ONE CAPSULE BEFORE BEDTIME EPINEPHrine (Anaphylaxis) 1 MG/ML Soln Inject 0.3 mL as directed as needed for Anaphylaxis (severe allergic reaction). Glucose Blood Strp Commonly known as: OneTouch Ultra Blue Use as directed 4 times a day as needed (Diabetes). Use up to four times a day as directed isosorbide mononitrate SA 30 MG Tb24 Commonly known as: Imdur TAKE 1 TABLET BY MOUTH DAILY Levothyroxine Sodium 125 MCG Tablet Commonly known as: Levoxyl TAKE 1 TABLET BY MOUTH DAILY AT LEAST 30 MINUTES PRIOR TO FIRST MEAL OF THE DAY OR OTHER MEDICATIONS. Lidocaine-Prilocaine 2.5-2.5 % cream Commonly known as: Emla APPLY SMALL AMOUNT TO ACCESS SITE (AVF) 1 TO 2 HOURS BEFORE DIALYSIS. COVER WITH OCCLUSIVE DRESSING(SARAN WRAP) meclizine 12.5 MG Tablet Commonly known as: Antivert Take 1 Tablet by mouth 3 times a day as needed. Melatonin 10 MG Tablet Take 1 Tablet by mouth every night at bedtime. mupirocin calcium 2 % ointment Commonly known as: Bactroban apply one application externally twice daily Nebulizer Compressor Misc Inhale via nebulizer. Use as directed. Nystatin 563764 UNIT/GM powder Commonly known as: Nystop Apply topically to affected area 2 times a day. OneTouch Delica Lancets 33G Misc Up to 4 times daily pantoprazole 20 MG Tbec Commonly known as: Protonix Take 1 Tablet by mouth in the morning and 1 Tablet in the evening. Pregabalin 100 MG Capsule Commonly known as: Lyrica Take 1 capsule by mouth twice daily. May take 1 extra capsule after dialysis. Nanci-Samuel Tabs Take 1 Tablet by mouth in the morning. sertraline 100 MG Tablet Commonly known as: Zoloft TAKE ONE TABLET BY MOUTH IN THE MORNING Vitamin D3 125 MCG (5000 UT) Capsule Take 1 Capsule by mouth in the morning. STOP taking these medications Erythromycin 5 MG/GM ophthalmic ointment Hydrocortisone Acetate 25 MG suppository Commonly known as: Anusol HC SCHEDULED FOLLOW-UP: Future Appointments Appt Date/Time Provider Department 03/19/2023 8:30 AM Howie Gilbert MD [facility] 05/07/2023 2:20 PM Vianca Kitchen MD Family Medicine [facility] 06/10/2023 3:00 PM [facility] 06/16/2023 2:30 PM Cynthia Gonzalez MD Hematology/Oncology [facility] Other Information Indwelling Devices: LINES ALL Duration Dialysis Catheter Double Lumen Right Internal jugular 8 days Peripheral Line Left;Lower Arm 22 Gauge 6 days Vital Signs (last recorded): Most Recent Systolic BP: 101 mmHg (03/18/23 104) Most Recent Diastolic BP: 35 mmHg (03/18/23 104) Pulse: 42 (03/18/23 104) Resp: 20 (03/18/23734) Most Recent Temperature: 36 C (03/18/23734) Weight: 109.3 kg (241 lb) (03/18/23 0544) SpO2: 94 % (03/18/23715) O2 flow rate: 0 L/MIN (03/18/23715) Allergies: Patient has no known allergies. Activity: as tolerated Diet: renal diet Code status (this admission): Full Code Discussion of adv directives occurred with - adult: Patient Condition on Discharge: stable Isolation status: None Cognition: normal HOSPITAL CONSULTS ORDERED: NEPHROLOGY CONSULT IP VASCULAR SURGERY CONSULT IP ADULT PHYSICAL THERAPY CONSULT IP ADULT OCCUPATIONAL THERAPY CONSULT IP ADULT PHYSICAL THERAPY CONSULT IP ADULT OCCUPATIONAL THERAPY CONSULT IP REFERRING PHYSICIAN: Ref: BROWN LIRIANO[[id number]] [address] [facility] [place] [address] (office) [phone] (fax) PRIMARY CARE PROVIDER: PCP: Bella Villanueva MD [address] [place] [address] / [place] [id number] (office) [phone] (fax) Note: To contact a physician responsible for this patients hospital care, please call [facility] [phone]. I spent a total of 40 minutes coordinating, documenting, and providing care for this patient excluding time spent in the performance of separately billed services. Associated attestation - Leilani Johnson MD - 03/18/2023 11:46 AM EST I saw and evaluated the patient today. I have reviewed the trainee note and agree. I spent a total of 35 minutes coordinating, documenting, and providing care for this patient excluding time spent in the performance of separately billed services. documented in this encounter Discharge Instructions * Discharge Instr - AVS* Leilani Johnson MD - 03/13/2023 12:48 PM EST Discharge Date: 03/18/2022 Brief summary of inpatient care: Kami French was admitted to [facility] on 03/09/2023 with AV fistula malfunction from home. The primary diagnosis at discharge was clotted AV fistula. Kami French is being discharged to group home. The Hospital Medicine physician(s) at the time of discharge included: Leilani Johnson MD To reach this Provider Friday through Friday (8:00 AM to 4:30 PM) for any questions or test results: Call [phone] For after-hours concerns: Call [phone] and have your provider paged, or the provider conservation educator for the Department of Hospital Medicine paged. Inpatient test results pending: None Operations & Procedures: fistulogram of AV fistula and placement of tunneled dialysis catheter Code Status: Full Code Discussion of adv directives occurred with - adult: Patient Advance Directive Documentation: Advance Directive Does the Patient have an Advance Directive? Yes Diet: Renal diet Activity: No restrictions and As tolerated Kami should continue the following therapies: Physical Therapy and Occupational Therapy CVC (Central Venous Catheter) Care: Prevent Infection. Use good hand hygiene by following the guidelines on this sheet. Don't touch thecatheter or dressing unless you need to. Always clean your hands before and after you come in contact with any part of the CVC. To wash your hands with soap and water: Wet your hands with warm water. (Avoid hot water, which can cause skin irritation when you wash your hands often) Apply enough soap to cover the entire surface of your hands, including your fingers. Rub your hands together briskly for at least 15 seconds. Make sure to rub the front and back of each hand up to the wrist, your fingers and fingernails, between the fingers, and each thumb. Rinse your hands with warm water. Dry your hands completely with a new, unused paper towel. Don't use a cloth towel or other reusabletowel. These can harbor germs. Use the paper towel to turn off the faucet, then throw it away. If you're in a bathroom, also use apaper towel to open the door instead of touching the handle. Keep the CVC dry. The catheter and dressing must stay dry. Don't go swimming, use a tub, or do other things that could get the CVC wet. When it comes to bathing, also avoid getting the catheter wet. You may use plastic wrap and tape to keep the catheter and dressing dry. You may also ask the home health nurse what products they may have to keep things dry. If the dressing does get wet, call the home nurse agency right away for help. Additional Precautions: none Isolation Status: None Mentation at Discharge: normal Future Studies Required: as recommended by outpatient nephrology Respiratory Support at Discharge: Resume Prior to Admission Respiratory Support PRIMARY CARE PROVIDER: PCP: Bella Villanueva MD [address] [place] [address] / [place] [address] (office) [phone] (fax) Special Instructions: End date for medications including antibiotics and anticoagulants: none - You need to schedule a follow-up appointment with vascular surgery at [facility] to determine when it is safe to start re-using your AV fistula. - Call your primary care physician or seek medical attention if you develop chest pain, shortness of breath or any other concerning symptoms. Central Line: Call the Infectious disease provider right away if any of the following occur: Pain or burning in shoulder, chest, back, arm, or leg Fever of 100.4F (38.0C) or higher Chills Signs of infection at the catheter site (pain, redness, drainage, or stinging) Coughing, wheezing, or shortness of breath A racing or irregular heartbeat Muscle stiffness or trouble moving Tightness in area above the catheter site Gurgling noises coming from the catheter The catheter falls out, breaks, cracks, leaks, or has other damage Problems flushing the catheter Please have the patient return to the Emergency Department for any of the following: chest pain, chest pressure, chest tightness, difficulty breathing, or becomes unresponsive. The patient should not smoke or use tobacco products in any way! documented in this encounter Progress Notes * Ciro Sanches MD - 03/18/2023 10:56 AM EST Nephrology Progress Note S: no events overnight. Seen on hd today w/o complaints. Being d/c to [facility] today O: BP 101/35 | Pulse 42 | Temp 36 C (96.8 F) (Tympanic) | Resp 20 | Ht 1.575 m (5' 2") | Wt 109.3 kg (241 lb) | SpO2 94% | BMI 44.08 kg/m | BSA 2.19 m gen - nad Lungs -ctab cv - rrr abd - soft nt nd Ext - nt no edema Meds: Current medication list reviewed. Labs: Labs reviewed. A/P:77 yo lady w/hx ESRD on HD TTS RUE AVF [facility], HTN, T2DM, dementia, RA, parkinson syndrome, rené, copd, CHF, hx CVA, hearing loss [facility] 03/09/23 w/avf dysfunction forfistulagram, angioplasty of stenotic cephalic vein and TDC placement. - to use TDC, to let fistula rest for 1 month - continue HD TTS outpatient Barak Sanches MD [facility] Nephrology [phone] * Radha Venegas CRNP - 03/17/2023 1:15 PM EST PROGRESS NOTE - Nephrology [facility] [place] [address] Name: Kami French Location: [facility] [place] H[facility]A Date: 03/17/2023 Time: 1:16 PM She is a 77 y/o female with PMH significant for ESRD on HD TTS RUE AVF [facility], HTN,T2DM, dementia, RA, parkinson syndrome, rené, copd, CHF, hx CVA, hearing loss tx [facility] 03/09/23 w/avf dysfunction for fistulagram, angioplasty of stenotic cephalic vein and TDC placement. Nephrology follow-up ESRD on dialysis Interval history past 24 hrs: Last dialysis Friday No acute events overnight VSS and afebrile Endorses feeling well. States she is to be discharged tomorrow. Denies: SOB, chest pain, N/V, diarrhea, or LE edema ROS otherwise negative unless mentioned above OBJECTIVE: Most Recent Vital Signs: BP: 100 mmHg/38 mmHg (03/17/231122) Pulse: 54 (03/17/231122) Temp: 36.56 C (03/17/231122) Resp: 16 (03/17/231122) SpO2: 94 % (03/17/231122) Vital Signs last 24 Hours: Systolic BP: Most Recent Systolic BP Av mmHg Min: 90 mmHg Max: 116 mmHg Temperature: Most Recent Temperature Av.8 C Min: 36.44 C Max: 37.56 C Pulse: Pulse Av.5 Min: 45 Max: 69 Respirations: Resp Av.3 Min: 16 Max: 18 SpO2: SpO2 Av % Min: 94 % Max: 99 % Intake/Output Summary (Last 24 hours) at 03/17/2023 1316 Last data filed at 03/17/2023 0900 Gross per 24 hour Intake 600 ml Output -- Net 600 ml Weight: 108.6 kg (239 lb 8 oz) Physical Examination: Dialysis Access: RIJ TDC to be used for HD for the next month to let fistula rest Gen: in no acute distress, appears chronically-ill Skin: warm, dry HEENT: mucous membranes moist Resp: clear bilaterally, unlabored CV: regular rate and rhythm, no bruits Abdomen: soft, nontender, nondistended Genitourinary: n/a Extremities: no LE edema Neuro: A&O, conversing appropriately Psych: appropriate IMAGING: Pertinent reviewed. LABS: Reviewed pertinent. Lab results within last 7 days (see chart for full results) Units 03/16/23 0505 03/15/23 0556 03/13/23 0734 Creatinine mg/dL 5.7* 7.9* 9.3* BUN mg/dL 18 27* 34* Glucose mg/dL 105 115 96 Sodium mmol/L 134* 136 134* Potassium mmol/L 3.8 3.4* 3.6 Anion Gap mmol/L 12 15 16* CO2 mmol/L 26 24 24 Chloride mmol/L 96* 97* 94* Lab results within last 7 days (see chart for full results) Units 03/11/23 0523 HGB g/dL 8.6* HCT % 29.1* WBC K/uL 7.49 PLT K/uL 214 Lab results within last 7 days (see chart for full results) Units 03/16/23 0505 03/15/23 0556 03/13/23 0734 Albumin g/dL 3.7* 3.4* 3.6* Calcium mg/dL 8.8 8.5 8.3* Phosphorus mg/dL 5.0* 6.7* 7.4* Lab Results Component Value Date/Time PTH 322 (H) 09/13/2019 11:00 AM 25OHVITAMIND 11 (L) 09/13/2019 11:00 AM TRANSAT 20 02/24/2023 01:13 PM TRANSAT 17 10/22/2019 12:02 PM FERRITIN 179 (H) 02/24/2023 01:13 PM FERRITIN 155.2 (H) 10/05/2019 11:15 AM Lab Results Component Value Date/Time HCVAB Negative 03/10/2023 08:20 PM HCVAB NEGATIVE 11/23/2015 12:20 PM HBSAG Negative 03/10/2023 08:20 PM HBSAG NEGATIVE 10/27/2019 10:00 AM HEPB 179.0 03/10/2023 08:20 PM HEPB Positive 03/10/2023 08:20 PM HEPB Immune to Hepatitis B Virus 03/10/2023 08:20 PM HEPB Negative 03/10/2023 08:20 PM HEPB Negative 03/10/2023 08:20 PM HEPB NEGATIVE 10/27/2019 10:00 AM HEPB <3.5 10/27/2019 10:00 AM IMPRESSION / PLAN: 1. ESRD on Hemodialysis via RIJ (Right internal jugular) TDC Friday, , Friday. Continue dialysis as prescribed. Next dialysis tomorrow prior to discharge. 2. Electrolytes reviewed and notable for k and co2 are adequate 3. Anemia of ESRD HGB 8.6, receiving Venofer 4. Volume status normovolemic. Plan HD as scheduled 5. Hypertension Blood pressure controlled 6. Mineral bone disease Bone mineral parameters reviewed, Calcium controlled, and Hyperphosphatemianoted - Renal diet and fluid restriction - Blood pressure and volume status within acceptable parameters - Iron with dialysis - Dietary phos restriction - Daily renal function panel - Access issues fistula on rest x 1 month. Will continue to use TDC - Avoid nephrotoxins - adjust medications for eGFR<15ml/min - please monitor and record accurate intake and output for proper ultrafiltration Rx - rest of mgmt per primary team Patient assessment and plan discussed with attending Dr. Rodríguez. ? [facility] 03/17/23 [email or web address] Associated attestation - Nghia Rodríguez MD - 03/17/2023 3:27 PM EST I have reviewed the advanced practitioner documentation and agree. I saw and evaluated the patient on date of service referenced in note and have performed the following medically appropriate historyand/or exam: NAD. * Pora, Gavriella, MD - 03/17/2023 10:34 AM EST Images from the original note were not included. [facility] H874/A INTERVAL HISTORY: No acute events overnight Doing well No new symptoms or complaints Ask if she will need the peripheral IV when she [facility], told her it will be takenout before she leaves Objective Physical Exam Most Recent Vital Signs: BP: 116 mmHg/45 mmHg (03/17/23810) Pulse: 62 (03/17/23810) Temp: 36.44 C (03/17/23810) Resp: 18 (03/17/23810) SpO2: 98 % (03/17/23810) Sitting up in bed and appears comfortable. Awake, alert and oriented. Answers questions appropriately and follows commands. No dysarthria. No facial droop. No respiratory distress. R subclavian HD catheter with appropriate dressing, intact, no drainage or erythema. Moves all 4 extremities spontaneously against gravity. R pupil larger than L pupil (chronic for her), both pupils reactive to light albeit L more sluggish than R. No focal neurological deficits on exam. Peripheral Line Left;Lower Arm 22 Gauge (Active) Number of days: 5 Dialysis Catheter Double Lumen Right Internal jugular (Active) Number of days: 8 STUDIES: Encounter Orders Labs and other studies reviewed with pertinent findings noted below: - no new labs today Assessment and Plan 77 year old woman was admitted for AV fistula malfunction. Underwent fistulogram and had tunneled dialysis catheter placed. Hemodynamically stable and hemodialysis successful through tunneled catheter. Malfunction AVF s/p fistulogram ESRD - tunneled HD catheter placed, utilize this for HD for now - vascular surgery recommend NOT utilizing AVF x 1 month - outpatient vascular surgery follow-up at [facility] - nephrology following, cont HD on TTS NIDDM2 - cont SSI - add long acting insulin if needed Physical deconditioning - PT/OT HTN - cont PHARMACY RESIDENT imdur Chronic HFrEF Hypothyroidism - cont PHARMACY RESIDENT levothyroxine DLD - cont aspirin and statin Parkinsonism - cont sinemet COPD - cont PHARMACY RESIDENT inhalers GERD - cont PHARMACY RESIDENT omeprazole RENÉ - cont CPAP QHS Prior CVA - cont PHARMACY RESIDENT aspirin and statin Dementia Mood - cont PHARMACY RESIDENT sertraline PHARMACOLOGIC VTE PROPHYLAXIS: hEParin CODE STATUS: Full Code EXPECTED DISCHARGE DATE: 03/18/2023 I spent a total of 30 minutes coordinating, documenting, and providing care for this patient excluding time spent in the performance of separately billed services. * Ciro Sanches MD - 03/16/2023 10:49 AM EST Nephrology Progress Note S: no events overnight, denies complaints O: BP 111/43 | Pulse 48 | Temp 36.6 C (97.8 F) (Tympanic) | Resp 16 | Ht 1.575 m (5' 2") | Wt 106.8 kg (235 lb 8 oz) | SpO2 99% | BMI 43.07 kg/m | BSA 2.16 m gen - nad Lungs -ctab cv - rrr Ext - nt no edema RUE AVF + thrill Meds: Current medication list reviewed. Labs: Labs reviewed. A/P:A/P:77 yo lady w/hx ESRD on HD TTS RUE AVF [facility], HTN, T2DM, dementia, RA, parkinson syndrome, rené, copd, CHF, hx CVA, hearing loss tx [facility] 03/09/23 w/avf dysfunctionfor fistulagram, angioplasty of stenotic cephalic vein and TDC placement. - to use TDC, to let fistula rest for 1 month - continue HD TTS, will do HD Friday shift so can go home in pm - dispo - d/c to [facility] 03/18/22. Please ask CM to make sure outpatient HD unit set up Barak Sanches MD [facility] Ne[facility] [phone] * Leilani Johnson MD - 03/16/2023 7:36 AM EST Images from the original note were not included. [facility] H874/A INTERVAL HISTORY: No acute events overnight Doing well No new symptoms or complaints Objective Physical Exam Most Recent Vital Signs: BP: 111 mmHg/43 mmHg (03/16/23 0721) Pulse: 48 (03/16/23720) Temp: 36.56 C (03/16/23 0316) Resp: 16 (03/16/23720) SpO2: 99 % (03/16/23720) Sitting up in bed and appears comfortable. Awake, alert and oriented. Answers questions appropriately and follows commands. No dysarthria. No facial droop. No respiratory distress. R subclavian HD catheter with appropriate dressing, intact, no drainage or erythema. Moves all 4 extremities spontaneously against gravity. R pupil larger than L pupil (chronic for her) Peripheral Line Left;Lower Arm 22 Gauge (Active) Number of days: 4 Dialysis Catheter Double Lumen Right Internal jugular (Active) Number of days: 7 STUDIES: Encounter Orders Labs and other studies reviewed with pertinent findings noted below: - BMP c/w ESRD - EKG showing sinus bradycardia Assessment and Plan 77 year old woman was admitted for AV fistula malfunction. Underwent fistulogram and had tunneled dialysis catheter placed. Hemodynamically stable and hemodialysis successful through tunneled catheter. Malfunction AVF s/p fistulogram ESRD - tunneled HD catheter placed, utilize this for HD for now - vascular surgery recommend NOT utilizing AVF x 1 month - outpatient vascular surgery follow-up at [facility] - nephrology following, cont HD on TTS NIDDM2 - cont SSI - add long acting insulin if needed Physical deconditioning - PT/OT HTN - cont PHARMACY RESIDENT imdur Chronic HFrEF Hypothyroidism - cont PHARMACY RESIDENT levothyroxine DLD - cont aspirin and statin Parkinsonism - cont sinemet COPD - cont PHARMACY RESIDENT inhalers GERD - cont PHARMACY RESIDENT omeprazole RENÉ - cont CPAP QHS Prior CVA - cont PHARMACY RESIDENT aspirin and statin Dementia Mood - cont PHARMACY RESIDENT sertraline PHARMACOLOGIC VTE PROPHYLAXIS: hEParin CODE STATUS: Full Code EXPECTED DISCHARGE DATE: 03/18/2023 I spent a total of 40 minutes coordinating, documenting, and providing care for this patient excluding time spent in the performance of separately billed services. * Leilani Johnson MD - 03/15/2023 3:03 PM EST Images from the original note were not included. [facility] H874/A INTERVAL HISTORY: No acute events overnight Doing well Dialysis went well without any issues Aware that she will be leaving on Friday Objective Physical Exam Most Recent Vital Signs: BP: 91 mmHg/39 mmHg (03/15/23 1022) Pulse: 48 (03/15/23 1022) Temp: 36.39 C (03/15/23 1022) Resp: 16 (03/15/23 1022) SpO2: 92 % (03/15/23 0300) Sitting up in bed and appears comfortable. Awake, alert and oriented. Answers questions appropriately and follows commands. No dysarthria. No facial droop. No respiratory distress. R subclavian HD catheter with appropriate dressing, intact, no drainage or erythema. Moves all 4 extremities spontaneously against gravity. Peripheral Line Left;Lower Arm 22 Gauge (Active) Number of days: 3 Dialysis Catheter Double Lumen Right Internal jugular (Active) Number of days: 6 STUDIES: Encounter Orders Labs and other studies reviewed with pertinent findings noted below: - no new labs today Assessment and Plan 77 year old woman was admitted for AV fistula malfunction. Underwent fistulogram and had tunneled dialysis catheter placed. Hemodynamically stable and hemodialysis successful through tunneled catheter. Malfunction AVF s/p fistulogram ESRD - tunneled HD catheter placed, utilize this for HD for now - vascular surgery recommend NOT utilizing AVF x 1 month - outpatient vascular surgery follow-up at [facility] - nephrology following, cont HD on TTS NIDDM2 - cont SSI - add long acting insulin if needed Physical deconditioning - PT/OT HTN - cont PHARMACY RESIDENT imdur Chronic HFrEF Hypothyroidism - cont PHARMACY RESIDENT levothyroxine DLD - cont aspirin and statin Parkinsonism - cont sinemet COPD - cont PHARMACY RESIDENT inhalers GERD - cont PHARMACY RESIDENT omeprazole RENÉ - cont CPAP QHS Prior CVA - cont PHARMACY RESIDENT aspirin and statin Dementia Mood - cont PHARMACY RESIDENT sertraline PHARMACOLOGIC VTE PROPHYLAXIS: hEParin CODE STATUS: Full Code EXPECTED DISCHARGE DATE: 03/18/2023 I spent a total of 30 minutes coordinating, documenting, and providing care for this patient excluding time spent in the performance of separately billed services. * Ciro Sanches MD - 03/15/2023 9:24 AM EST Nephrology Progress Note S:seen on dialysis, no complaints O: BP 105/43 | Pulse 47 | Temp 36.1 C (97 F) (Tympanic) | Resp 16 | Ht 1.575 m (5' 2") | Wt 107.1 kg (236 lb 3.2 oz) | SpO2 92% | BMI 43.20 kg/m | BSA 2.16 m gen - nad RIJ TDC intact RUE AVF + thrill Lungs -ctab cv - demian, no m Meds: Current medication list reviewed. Labs: Labs reviewed. A/P:77 yo lady w/hx ESRD on HD TTS RUE AVF [facility], HTN, T2DM, dementia, RA, parkinson syndrome, rené, copd, CHF, hx CVA, hearing loss tx [facility] [facility] [place] 03/09/23 w/avf dysfunction forfistulagram, angioplasty of stenotic cephalic vein and TDC placement. - to use TDC, to let fistula rest for 1 month - continue HD TTS - dispo - d/c to sn[facility] 03/18/22 Barak Sanches MD [place] Nephrology [phone] * Inga Parmar MD - 03/14/2023 4:06 PM EST Images from the original note were not included. PROGRESS NOTE - Nephrology [facility] [place] [address] Hospital Day: 5 Overview: Kami French is a 77 year old female with past history notable for ESRD on TTS schedulevia RUE AVF at [facility], HTN, T2DM, Dementia, Rheumatoid arthritis, Parkinson syndrome, hypothyroidism HLD, obesity, RENÉ, GERD, COPD, CHF with history of CVA and significant hearing problems was admitted to the hospital on 03/09/2023 transfer from [facility] where she presented with AVF dysfunction and was transferred to [facility] for fistulagramand TDC placement. S/p Placement of right internal jugular vein tunneled dialysis Palindrome heparin bonded catheter with silver ion sleeve and Diagnostic right arm fistulagram with peripheral venous angioplasty by Dr.Neal Brown on 03/09/23. Subjective: Seen and examined at bedside. Denies shortness of breath, chest pain, nausea, vomiting or diarrhea. Last HD session was done yesterday. Tolerated the treatment well. No significant overnight events. Pertinent positives and negatives as documented in the HPI. All other systems are negative. PMH/PSH/FH/SH: reviewed Allergies: reviewed Current medication list reviewed. Objective/Physical Examination Most Recent Vital Signs: BP: 119 mmHg/54 mmHg (03/14/23 152) Pulse: 57 (03/14/23 152) Temp: 36.5 C (03/14/23 152) Resp: 16 (03/14/23 152) SpO2: 92 % (03/14/23 152) Vital Signs last 24 Hours: Systolic BP: Most Recent Systolic BP Av.1 mmHg Min: 97 mmHg Max: 131 mmHg Temperature: Most Recent Temperature Av.2 C Min: 35.61 C Max: 36.5 C Pulse: Pulse Av.3 Min: 50 Max: 57 Respirations: Resp Av.7 Min: 16 Max: 18 SpO2: SpO2 Av.7 % Min: 92 % Max: 100 % Body mass index is 43.2 kg/m. Intake/Output Summary (Last 24 hours) at 03/14/2023 1606 Last data filed at 03/14/2023 0800 Gross per 24 hour Intake 600 ml Output -- Net 600 ml General: No acute distress. HEENT: Normocephalic, atraumatic. EOM intact. Moist mucosa. Neck: Trachea is midline. No JVD appreciable. Cardiovascular: RRR. No murmurs. No palpable thrill. Pulmonary: Normal respiratory pattern. Clear to auscultation bilaterally. Abdomen: Soft, non-tender, non-distended. No masses. Bowel sounds present. Extremities: Mild pedal edema noted. Skin: Warm, with normal turgor. No rashes. Neuro: Alert, oriented x 3. No focal deficits. Psych: Normal thought content and intact judgment. Dialysis access: RUE AVF with good thrill. RIJ TDC with clear margins. Labs reviewed as indicated below: Lab results within last 7 days (see chart for full results) Units 03/13/23 0734 03/12/23 0831 03/11/23 0818 Sodium mmol/L 134* 135 137 Potassium mmol/L 3.6 3.6 4.1 Chloride mmol/L 94* 96* 97* CO2 mmol/L 24 26 20* BUN mg/dL 34* 25* 63* Creatinine mg/dL 9.3* 7.1* 12.6* Lab results within last 7 days (see chart for full results) Units 03/11/23 0523 03/10/23 0506 03/09/23 1049 HGB g/dL 8.6* 8.7* 9.5* HCT % 29.1* 30.3* 31.6* WBC K/uL 7.49 8.53 8.26 PLT K/uL 214 244 273 Lab results within last 7 days (see chart for full results) Units 03/13/23 0734 03/12/23 0831 03/11/23 0818 03/10/23 0506 03/09/23 1049 Calcium mg/dL 8.3* 8.7 8.2* 9.0 9.0 Magnesium mg/dL -- -- -- 2.5 2.4 Phosphorus mg/dL 7.4* 5.7* 9.9* -- -- Albumin g/dL 3.6* 3.5* -- -- -- Recent Cultures (2 Weeks) 10/13/2019 04/28/2019 04/25/2019 04/20/2019 12/03/2018 10/06/2015 09/29/2015 2015 1:10 PM 8:00 AM 6:04 PM 8:09 PM 4:05 PM 1:37 PM 2:25 PM 4:22 PM SPECIMEN DESCRIPTION URINE CATHETERIZED URINE CLEAN CATCH URINE CLEAN CATCH URINE SYNOVIAL FLUID LEFT KNEE CLEAN CATCH URINE URINE CLEAN CATCH URINE SYNOVIAL FLUID LEFT KNEE CULTURE LESS THAN 100 COLONIES/ML (NO GROWTH) >100,000 COLONIES/ML PROTEUS MIRABILIS LESS THAN 10,000 COLONIES/ML NORMAL JALEN ONE COLONY TYPE LESS THAN 10,000 COLONIES/ML NORMAL JALEN ONE COLONY TYPE NO FUNGUS ISOLATED LESS THAN 10,000 COLONIES/ML MIXED JALEN MULTIPLE JALEN SUGGESTS CONTAMINATION OR COLONIZATION 10,000 TO 100,000 COLONIES/ML ESCHERICHIA COLI NO GROWTH LESS THAN 10,000 COLONIES/ML MIXED JALEN Pertinent Imaging :personally reviewed images No imaging results in the last 24 hours Impression: # ESRD on TTS schedule via RUE AVF at [facility] # AVF dysfunction s/p angioplasty on 03/09. # s/p RIJ TDC placement on 03/09. # Volume status: Clinically euvolemic. # Electrolytes: Within normal limits. # Acid base status: Acceptable. # Anemia # MBD with hyperphosphatemia Recommendations # we will continue to dialyze her on TTS schedule. Next session tomorrow[facility] session will be done early in first shift on that day. # Discharge to SNF scheduled on 03/18/22. # BP stable. Aim to keep MAP above 65 mmHg. # Continue to adjust meds according to Hemodialysis. # PRBC transfusion if HGB < 7 g/dl. Will continue IV iron and EPO with dialysis sessions. # Rest of the management as per primary team. Thanks for letting me participate in this patient's care. I have discussed the assessment and management plan with Dr. Bach, the attending physician and communicated to the primary team. Inga Parmar MD Fellow nephrology [facility] Associated attestation - Jamshid Bach MD - 03/14/2023 7:31 PM EST I saw and evaluated the patient today. I have reviewed the trainee note and agree. * Leilani Johnson MD - 03/14/2023 10:36 AM EST Images from the original note were not included. [facility] H874/A INTERVAL HISTORY: No acute events overnight Doing well without any complaints Explained that we have her setup for SNF on Friday so no need to go back to [facility] She is agreeable with this plan No acute complaints today Objective Physical Exam Most Recent Vital Signs: BP: 120 mmHg/46 mmHg (03/14/23731) Pulse: 50 (03/14/23731) Temp: 35.94 C (03/14/23731) Resp: 18 (03/14/23731) SpO2: 98 % (03/14/23731) Sitting up in bed and appears comfortable. Awake, alert and oriented. Answers questions appropriately and follows commands. No dysarthria. No facial droop. No respiratory distress. CTAB. Heart soundsregular rate and rhythm. Abdomen is soft and nondistended. R subclavian HD catheter with appropriate dressing, intact, no drainage or erythema. Moves all 4 extremities spontaneously against gravity. Peripheral Line Left;Lower Arm 22 Gauge (Active) Number of days: 2 Dialysis Catheter Double Lumen Right Internal jugular (Active) Number of days: 5 STUDIES: Encounter Orders Labs and other studies reviewed with pertinent findings noted below: - no new labs today Assessment and Plan 77 year old woman was admitted for AV fistula malfunction. Underwent fistulogram and had tunneled dialysis catheter placed. Hemodynamically stable and hemodialysis successful through tunneled catheter. Malfunction AVF s/p fistulogram ESRD - tunneled HD catheter placed, utilize this for HD for now - vascular surgery recommend NOT utilizing AVF x 1 month - outpatient vascular surgery follow-up at [facility] - nephrology following, cont HD on TTS NIDDM2 - cont SSI - add long acting insulin if needed Physical deconditioning - PT/OT HTN - cont PHARMACY RESIDENT imdur Chronic HFrEF Hypothyroidism - cont PHARMACY RESIDENT levothyroxine DLD - cont aspirin and statin Parkinsonism - cont sinemet COPD - cont PHARMACY RESIDENT inhalers GERD - cont PHARMACY RESIDENT omeprazole RENÉ - cont CPAP QHS Prior CVA - cont PHARMACY RESIDENT aspirin and statin Dementia Mood - cont PHARMACY RESIDENT sertraline PHARMACOLOGIC VTE PROPHYLAXIS: hEParin CODE STATUS: Full Code EXPECTED DISCHARGE DATE: 03/18/2023 I spent a total of 30 minutes coordinating, documenting, and providing care for this patient excluding time spent in the performance of separately billed services. * Inga Parmar MD - 03/13/2023 4:59 PM EST Images from the original note were not included. PROGRESS NOTE - Nephrology [facility] [address] Hospital Day: 4 Overview: Kami French is a 77 year old female with past history notable for ESRD on TTS schedulevia RUE AVF at [facility], HTN, T2DM, Dementia, Rheumatoid arthritis, Parkinson syndrome, hypothyroidism HLD, obesity, RENÉ, GERD, COPD, CHF with history of CVA and significant hearing problems was admitted to the hospital on 03/09/2023 transfer from [facility] where she presented with AVF dysfunction and was transferred to [facility] for fistulagramand TDC placement. S/p Placement of right internal jugular vein tunneled dialysis Palindrome heparin bonded catheter with silver ion sleeve and Diagnostic right arm fistulagram with peripheral venous angioplasty by Dr.Neal Brown on 03/09/23. Subjective: Seen and examined during dialysis. Tolerating the treatment well. Denies shortness of breath, chest pain, nausea, vomiting or diarrhea. No significant overnight events. Pertinent positives and negatives as documented in the HPI. All other systems are negative. PMH/PSH/FH/SH: reviewed Allergies: reviewed Current medication list reviewed. Objective/Physical Examination Most Recent Vital Signs: BP: 102 mmHg/34 mmHg (03/13/23 1452) Pulse: 57 (03/13/23 1452) Temp: 36.61 C (03/13/23 1452) Resp: 16 (03/13/23 1452) SpO2: 93 % (03/13/23 1452) Vital Signs last 24 Hours: Systolic BP: Most Recent Systolic BP Av.1 mmHg Min: 79 mmHg Max: 118 mmHg Temperature: Most Recent Temperature Av.6 C Min: 36.39 C Max: 36.94 C Pulse: Pulse Av Min: 47 Max: 65 Respirations: Resp Av.7 Min: 16 Max: 20 SpO2: SpO2 Av.8 % Min: 92 % Max: 94 % Body mass index is 43.51 kg/m. Intake/Output Summary (Last 24 hours) at 03/13/2023 1659 Last data filed at 03/13/2023 1100 Gross per 24 hour Intake -- Output 1700 ml Net -1700 ml General: No acute distress. HEENT: Normocephalic, atraumatic. EOM intact. Moist mucosa. Neck: Trachea is midline. No JVD appreciable. Cardiovascular: RRR. No murmurs. No palpable thrill. Pulmonary: Normal respiratory pattern. Clear to auscultation bilaterally. Abdomen: Soft, non-tender, non-distended. No masses. Bowel sounds present. Extremities: Mild pedal edema noted. Skin: Warm, with normal turgor. No rashes. Neuro: Alert, oriented x 3. No focal deficits. Psych: Normal thought content and intact judgment. Dialysis access: RUE AVF with good thrill. RIJ TDC with clear margins. Labs reviewed as indicated below: Lab results within last 7 days (see chart for full results) Units 03/13/23 0734 03/12/23 0831 03/11/23 0818 Sodium mmol/L 134* 135 137 Potassium mmol/L 3.6 3.6 4.1 Chloride mmol/L 94* 96* 97* CO2 mmol/L 24 26 20* BUN mg/dL 34* 25* 63* Creatinine mg/dL 9.3* 7.1* 12.6* Lab results within last 7 days (see chart for full results) Units 03/11/23 0523 03/10/23 0506 03/09/23 1049 HGB g/dL 8.6* 8.7* 9.5* HCT % 29.1* 30.3* 31.6* WBC K/uL 7.49 8.53 8.26 PLT K/uL 214 244 273 Lab results within last 7 days (see chart for full results) Units 03/13/23 0734 03/12/23 0831 03/11/23 0818 03/10/23 0506 03/09/23 1049 Calcium mg/dL 8.3* 8.7 8.2* 9.0 9.0 Magnesium mg/dL -- -- -- 2.5 2.4 Phosphorus mg/dL 7.4* 5.7* 9.9* -- -- Albumin g/dL 3.6* 3.5* -- -- -- Recent Cultures (2 Weeks) 10/13/2019 04/28/2019 04/25/2019 04/20/2019 12/03/2018 10/06/2015 09/29/2015 2015 1:10 PM 8:00 AM 6:04 PM 8:09 PM 4:05 PM 1:37 PM 2:25 PM 4:22 PM SPECIMEN DESCRIPTION URINE CATHETERIZED URINE CLEAN CATCH URINE CLEAN CATCH URINE SYNOVIAL FLUID LEFT KNEE CLEAN CATCH URINE URINE CLEAN CATCH URINE SYNOVIAL FLUID LEFT KNEE CULTURE LESS THAN 100 COLONIES/ML (NO GROWTH) >100,000 COLONIES/ML PROTEUS MIRABILIS LESS THAN 10,000 COLONIES/ML NORMAL JALEN ONE COLONY TYPE LESS THAN 10,000 COLONIES/ML NORMAL JALEN ONE COLONY TYPE NO FUNGUS ISOLATED LESS THAN 10,000 COLONIES/ML MIXED JALEN MULTIPLE JALEN SUGGESTS CONTAMINATION OR COLONIZATION 10,000 TO 100,000 COLONIES/ML ESCHERICHIA COLI NO GROWTH LESS THAN 10,000 COLONIES/ML MIXED JALEN Pertinent Imaging :personally reviewed images No imaging results in the last 24 hours Impression: # ESRD on TTS schedule via RUE AVF at [facility] # AVF dysfunction s/p angioplasty on 03/09. # s/p RIJ TDC placement on 03/09. # Volume status: Clinically euvolemic. # Electrolytes: Within normal limits. # Acid base status: Acceptable. # Anemia # MBD Recommendations # we will continue to dialyze her on TTS schedule. Next session on Friday. # Pending discharge due to pending SNF placement. # BP soft. Aim to keep MAP above 65 mmHg. # Adjust meds according to Hemodialysis. # PRBC transfusion if HGB < 7 g/dl. Will continue IV iron and EPO with dialysis sessions. # Rest of the management as per primary team. Thanks for letting me participate in this patient's care. I have discussed the assessment and management plan with Dr. Bach, the attending physician and communicated to the primary team. Inga Parmar MD Fellow nephrology [facility] Associated attestation - Jamshid Bach MD - 03/13/2023 7:06 PM EST I saw and evaluated the patient today. I have reviewed the trainee note and agree. Very hard of hearing. Seen on dialysis. Tolerated it well. Discussed need to use catheter with outpatient unit * Leilani Johnson MD - 03/13/2023 9:09 AM EST Images from the original note were not included. [facility] H874/A INTERVAL HISTORY: No acute events overnight Doing well without any complaints Denies any pain Agreeable to going back to [facility] if possible Explained that will need to get in touch with [facility] nephrology/hospitalist to assure that they can accommodate dialysis for her Objective Physical Exam Most Recent Vital Signs: BP: 93 mmHg/36 mmHg (03/13/23902) Pulse: 49 (03/13/23902) Temp: 36.5 C (03/13/23726) Resp: 18 (03/13/23726) SpO2: 92 % (03/13/23711) Sitting up in bed and appears comfortable. Awake, alert and oriented. Answers questions appropriately and follows commands. No dysarthria. No facial droop. No respiratory distress. CTAB. Heart soundsregular rate and rhythm. Abdomen is soft and nondistended. R subclavian HD catheter with appropriate dressing, intact, no drainage or erythema. AVF in R arm with bandage over it and palpable thrill. Moves all 4 extremities spontaneously against gravity. Peripheral Line Left;Lower Arm 22 Gauge (Active) Number of days: 1 Dialysis Catheter Double Lumen Right Internal jugular (Active) Number of days: 4 STUDIES: Encounter Orders Labs and other studies reviewed with pertinent findings noted below: - BMP c/w ESRD Assessment and Plan 77 year old woman was admitted for AV fistula malfunction. Underwent fistulogram and had tunneled dialysis catheter placed. Hemodynamically stable and hemodialysis successful through tunneled catheter. Malfunction AVF s/p fistulogram ESRD - tunneled HD catheter placed, utilize this for HD for now - vascular surgery recommend NOT utilizing AVF x 1 month - outpatient vascular surgery follow-up at [facility] - nephrology following, cont HD on TTS NIDDM2 - cont SSI - add long acting insulin if needed Physical deconditioning - PT/OT HTN - cont PHARMACY RESIDENT imdur Chronic HFrEF Hypothyroidism - cont PHARMACY RESIDENT levothyroxine DLD - cont aspirin and statin Parkinsonism - cont sinemet COPD - cont PHARMACY RESIDENT inhalers GERD - cont PHARMACY RESIDENT omeprazole RENÉ - cont CPAP QHS Prior CVA - cont PHARMACY RESIDENT aspirin and statin Dementia Mood - cont PHARMACY RESIDENT sertraline PHARMACOLOGIC VTE PROPHYLAXIS: hEParin CODE STATUS: Full Code EXPECTED DISCHARGE DATE: 03/14/2023 I spent a total of 50 minutes coordinating, documenting, and providing care for this patient excluding time spent in the performance of separately billed services. * Inga Parmar MD - 03/12/2023 2:30 PM EST Images from the original note were not included. PROGRESS NOTE - Nephrology [facility] [address] Hospital Day: 3 Overview: Kami French is a 77 year old female with past history notable for ESRD on TTS schedulevia RUE AVF at [facility], HTN, T2DM, Dementia, Rheumatoid arthritis, Parkinson syndrome, hypothyroidism HLD, obesity, RENÉ, GERD, COPD, CHF with history of CVA and significant hearing problems was admitted to the hospital on 03/09/2023 transfer from [facility] where she presented with AVF dysfunction and was transferred to [facility] for fistulagramand TDC placement. S/p Placement of right internal jugular vein tunneled dialysis Palindrome heparin bonded catheter with silver ion sleeve and Diagnostic right arm fistulagram with peripheral venous angioplasty by Dr.Neal Brown on 03/09/23. Subjective: Seen and examined at bedside. Denies shortness of breath, chest pain, nausea, vomiting or diarrhea. Last dialysis session done yesterday. Tolerated the treatment well. No significant overnight events. Pertinent positives and negatives as documented in the HPI. All other systems are negative. PMH/PSH/FH/SH: reviewed Allergies: reviewed Current medication list reviewed. Objective/Physical Examination Most Recent Vital Signs: BP: 105 mmHg/45 mmHg (03/12/23 1134) Pulse: 59 (03/12/23 1134) Temp: 36.5 C (03/12/23 0720) Resp: 18 (03/12/23 1134) SpO2: 96 % (03/12/23 1134) Vital Signs last 24 Hours: Systolic BP: Most Recent Systolic BP Av.3 mmHg Min: 86 mmHg Max: 122 mmHg Temperature: Most Recent Temperature Av.7 C Min: 36.22 C Max: 37.22 C Pulse: Pulse Av.5 Min: 41 Max: 59 Respirations: Resp Av.7 Min: 18 Max: 22 SpO2: SpO2 Av.8 % Min: 94 % Max: 99 % Body mass index is 42.74 kg/m. Intake/Output Summary (Last 24 hours) at 03/12/2023 1430 Last data filed at 03/11/2023 1817 Gross per 24 hour Intake 480 ml Output 0 ml Net 480 ml General: No acute distress. HEENT: Normocephalic, atraumatic. EOM intact. Moist mucosa. Neck: Trachea is midline. No JVD appreciable. Cardiovascular: RRR. No murmurs. No palpable thrill. Pulmonary: Normal respiratory pattern. Clear to auscultation bilaterally. Abdomen: Soft, non-tender, non-distended. No masses. Bowel sounds present. Extremities: Mild pedal edema noted. Skin: Warm, with normal turgor. No rashes. Neuro: Alert, oriented x 3. No focal deficits. Psych: Normal thought content and intact judgment. Dialysis access: RUE AVF with good thrill. RIJ TDC with clear margins. Labs reviewed as indicated below: Lab results within last 7 days (see chart for full results) Units 03/12/23 0831 03/11/23 0818 03/10/23 0506 Sodium mmol/L 135 137 141 Potassium mmol/L 3.6 4.1 4.2 Chloride mmol/L 96* 97* 101 CO2 mmol/L 26 20* 22 BUN mg/dL 25* 63* 54* Creatinine mg/dL 7.1* 12.6* 11.6* Lab results within last 7 days (see chart for full results) Units 03/11/23 0523 03/10/23 0506 03/09/23 1049 HGB g/dL 8.6* 8.7* 9.5* HCT % 29.1* 30.3* 31.6* WBC K/uL 7.49 8.53 8.26 PLT K/uL 214 244 273 Lab results within last 7 days (see chart for full results) Units 03/12/23 0831 03/11/23 0818 03/10/23 0506 03/09/23 1049 Calcium mg/dL 8.7 8.2* 9.0 9.0 Magnesium mg/dL -- -- 2.5 2.4 Phosphorus mg/dL 5.7* 9.9* -- -- Albumin g/dL 3.5* -- -- -- Recent Cultures (2 Weeks) 10/13/2019 04/28/2019 04/25/2019 04/20/2019 12/03/2018 10/06/2015 09/29/2015 2015 1:10 PM 8:00 AM 6:04 PM 8:09 PM 4:05 PM 1:37 PM 2:25 PM 4:22 PM SPECIMEN DESCRIPTION URINE CATHETERIZED URINE CLEAN CATCH URINE CLEAN CATCH URINE SYNOVIAL FLUID LEFT KNEE CLEAN CATCH URINE URINE CLEAN CATCH URINE SYNOVIAL FLUID LEFT KNEE CULTURE LESS THAN 100 COLONIES/ML (NO GROWTH) >100,000 COLONIES/ML PROTEUS MIRABILIS LESS THAN 10,000 COLONIES/ML NORMAL JALEN ONE COLONY TYPE LESS THAN 10,000 COLONIES/ML NORMAL JALEN ONE COLONY TYPE NO FUNGUS ISOLATED LESS THAN 10,000 COLONIES/ML MIXED JALEN MULTIPLE JALEN SUGGESTS CONTAMINATION OR COLONIZATION 10,000 TO 100,000 COLONIES/ML ESCHERICHIA COLI NO GROWTH LESS THAN 10,000 COLONIES/ML MIXED JALEN Pertinent Imaging :personally reviewed images No imaging results in the last 24 hours Impression: # ESRD on TTS schedule via RUE AVF at [facility] # AVF dysfunction s/p angioplasty on 03/09. # s/p RIJ TDC placement on 03/09. # Volume status: Clinically euvolemic. # Electrolytes: Within normal limits. # Acid base status: Acceptable. # Anemia # MBD Recommendations # we will continue to dialyze her on TTS schedule. Next session tomorrow. # Pending discharge due to pending SNF placement. # BP soft. Aim to keep MAP above 65 mmHg. # Adjust meds according to Hemodialysis. # PRBC transfusion if HGB < 7 g/dl. Will add IV iron and EPO with dialysis sessions. # Rest of the management as per primary team. Thanks for letting me participate in this patient's care. I have discussed the assessment and management plan with Dr. Rosario, the attending physician and communicated to the primary team. Inga Parmar MD Fellow nephrology [facility] Associated attestation - Justa Rosario MD - 03/12/2023 4:23 PM EST I saw and evaluated the patient today. I have reviewed the trainee note and agree. * Leilani Johnson MD - 03/12/2023 9:21 AM EST Images from the original note were not included. [facility] H874/A INTERVAL HISTORY: No acute events overnight Doing well HD went well yesterday through catheter AVF with bandage over it Aware she cannot use it for a month Aware that plan is to get her to nursing facility Objective Physical Exam Most Recent Vital Signs: BP: 109 mmHg/41 mmHg (03/12/23719) Pulse: 50 (03/12/23719) Temp: 36.5 C (03/12/23719) Resp: 18 (03/12/23719) SpO2: 96 % (03/12/23719) Sitting up in bed and appears comfortable. Awake, alert and oriented. Answers questions appropriately and follows commands. No dysarthria. No facial droop. No respiratory distress. CTAB. Heart soundsregular rate and rhythm. Abdomen is soft and nondistended. R subclavian HD catheter with appropriate dressing, intact, no drainage or erythema. AVF in R arm with bandage over it and palpable thrill. Moves all 4 extremities spontaneously against gravity. Peripheral Line Left;Lower Arm 22 Gauge (Active) Number of days: 0 Dialysis Catheter Double Lumen Right Internal jugular (Active) Number of days: 3 STUDIES: Encounter Orders Labs and other studies reviewed with pertinent findings noted below: - BMP c/w ESRD Assessment and Plan 77 year old woman was admitted for AV fistula malfunction. Underwent fistulogram and had tunneled dialysis catheter placed. Hemodynamically stable and hemodialysis successful through tunneled catheter. Malfunction AVF s/p fistulogram ESRD - tunneled HD catheter placed, utilize this for HD for now - vascular surgery recommend NOT utilizing AVF x 1 month - outpatient vascular surgery follow-up at [facility] - nephrology following, cont HD on TTS NIDDM2 - cont SSI - add long acting insulin if needed Physical deconditioning - PT/OT HTN - cont PHARMACY RESIDENT imdur Chronic HFrEF Hypothyroidism - cont PHARMACY RESIDENT levothyroxine DLD - cont aspirin and statin Parkinsonism - cont sinemet COPD - cont PHARMACY RESIDENT inhalers GERD - cont PHARMACY RESIDENT omeprazole RENÉ - cont CPAP QHS Prior CVA - cont PHARMACY RESIDENT aspirin and statin Dementia Mood - cont PHARMACY RESIDENT sertraline PHARMACOLOGIC VTE PROPHYLAXIS: hEParin CODE STATUS: Full Code EXPECTED DISCHARGE DATE: 03/14/2023 I spent a total of 60 minutes coordinating, documenting, and providing care for this patient excluding time spent in the performance of separately billed services. * Inga Parmar MD - 03/11/2023 4:03 PM EST Images from the original note were not included. PROGRESS NOTE - Nephrology [facility] [place] [address] Hospital Day: 2 Overview: Kami French is a 77 year old female with past history notable for ESRD on TTS schedulevia RUE AVF at [facility], HTN, T2DM, Dementia, Rheumatoid arthritis, Parkinson syndrome, hypothyroidism HLD, obesity, RENÉ, GERD, COPD, CHF with history of CVA and significant hearing problems was admitted to the hospital on 03/09/2023 transfer from [facility] where she presented with AVF dysfunction and was transferred to [facility] for fistulagramand TDC placement. S/p Placement of right internal jugular vein tunneled dialysis Palindrome heparin bonded catheter with silver ion sleeve and Diagnostic right arm fistulagram with peripheral venous angioplasty by Dr.Neal Brown on 03/09/23. Subjective: Seen and examined at bedside. Denies shortness of breath, chest pain, nausea, vomiting or diarrhea. No significant overnight events. Pertinent positives and negatives as documented in the HPI. All other systems are negative. PMH/PSH/FH/SH: reviewed Allergies: reviewed Current medication list reviewed. Objective/Physical Examination Most Recent Vital Signs: BP: 93 mmHg/43 mmHg (03/11/23 1543) Pulse: 44 (03/11/23 1543) Temp: 36.28 C (03/11/23 1543) Resp: 22 (03/11/23 1543) SpO2: 93 % (03/11/23 1101) Vital Signs last 24 Hours: Systolic BP: Most Recent Systolic BP Av.5 mmHg Min: 77 mmHg Max: 114 mmHg Temperature: Most Recent Temperature Av.9 C Min: 36.28 C Max: 37.17 C Pulse: Pulse Av.5 Min: 41 Max: 66 Respirations: Resp Av.8 Min: 16 Max: 22 SpO2: SpO2 Av % Min: 93 % Max: 100 % Body mass index is 42.25 kg/m. Intake/Output Summary (Last 24 hours) at 03/11/2023 1603 Last data filed at 03/11/2023 1543 Gross per 24 hour Intake 360 ml Output 5 ml Net 355 ml General: No acute distress. HEENT: Normocephalic, atraumatic. EOM intact. Moist mucosa. Neck: Trachea is midline. No JVD appreciable. Cardiovascular: RRR. No murmurs. No palpable thrill. Pulmonary: Normal respiratory pattern. Clear to auscultation bilaterally. Abdomen: Soft, non-tender, non-distended. No masses. Bowel sounds present. Extremities: Mild pedal edema noted. Skin: Warm, with normal turgor. No rashes. Neuro: Alert, oriented x 3. No focal deficits. Psych: Normal thought content and intact judgment. Dialysis access: RUE AVF with good thrill. RIJ TDC with clear margins. Labs reviewed as indicated below: Lab results within last 7 days (see chart for full results) Units 03/11/23 0818 03/10/23 0506 03/09/23 1049 Sodium mmol/L 137 141 142 Potassium mmol/L 4.1 4.2 3.8 Chloride mmol/L 97* 101 101 CO2 mmol/L 20* 22 23 BUN mg/dL 63* 54* 46* Creatinine mg/dL 12.6* 11.6* 10.2* Lab results within last 7 days (see chart for full results) Units 03/11/23 0523 03/10/23 0506 03/09/23 1049 HGB g/dL 8.6* 8.7* 9.5* HCT % 29.1* 30.3* 31.6* WBC K/uL 7.49 8.53 8.26 PLT K/uL 214 244 273 Lab results within last 7 days (see chart for full results) Units 03/11/23 0818 03/10/23 0506 03/09/23 1049 Calcium mg/dL 8.2* 9.0 9.0 Magnesium mg/dL -- 2.5 2.4 Phosphorus mg/dL 9.9* -- -- Recent Cultures (2 Weeks) 10/13/2019 04/28/2019 04/25/2019 04/20/2019 12/03/2018 10/06/201509/29/2015 2015 1:10 PM 8:00 AM 6:04 PM 8:09 PM 4:05 PM 1:37 PM 2:25 PM 4:22 PM SPECIMEN DESCRIPTION URINE CATHETERIZED URINE CLEAN CATCH URINE CLEAN CATCH URINE SYNOVIAL FLUID LEFT KNEE CLEAN CATCH URINE URINE CLEAN CATCH URINE SYNOVIAL FLUID LEFT KNEE CULTURE LESS THAN 100 COLONIES/ML (NO GROWTH) >100,000 COLONIES/ML PROTEUS MIRABILIS LESS THAN 10,000 COLONIES/ML NORMAL JALEN ONE COLONY TYPE LESS THAN 10,000 COLONIES/ML NORMAL JALEN ONE COLONY TYPE NO FUNGUS ISOLATED LESS THAN 10,000 COLONIES/ML MIXED JALEN MULTIPLE JALEN SUGGESTS CONTAMINATION OR COLONIZATION 10,000 TO 100,000 COLONIES/ML ESCHERICHIA COLI NO GROWTH LESS THAN 10,000 COLONIES/ML MIXED JALEN Pertinent Imaging :personally reviewed images No imaging results in the last 24 hours Impression: # ESRD on TTS schedule via RUE AVF at [facility] dialysis [place] # AVF dysfunction s/p angioplasty on 03/09. # s/p RIJ TDC placement on 03/09. # Volume status: Clinically euvolemic. # Electrolytes: Within normal limits. # Acid base status: Acceptable. # Anemia # MBD Recommendations # likely patient will be discharged today after dialysis session. She then needs to continue with her TTS schedule at her outpatients dialysis center- next session on 03/13. # BP soft. Aim to keep MAP above 65 mmHg. # Adjust meds according to Hemodialysis. # PRBC transfusion if HGB < 7 g/dl. # Rest of the management as per primary team. Thanks for letting me participate in this patient's care. I have discussed the assessment and management plan with Dr. Sanches, the attending physician and communicated to the primary team. Inga Parmar MD Fellow nephrology [facility] Associated attestation - Ciro Sanches MD - 03/11/2023 4:30 PM EST I saw and evaluated the patient today. I have reviewed the trainee note and agree. Seen on hd, BP was low though patient was asymptomatic and said her BP is usually low, no fluid wasremoved. Barak Sanches MD MS Nephrology [phone] * Vidhi Laguerre MD - 03/11/2023 8:00 AM EST Images from the original note were not included. [facility] H874/A INTERVAL HISTORY: The pt was seen and examined this morning at the bedside, just woke up. Denied any overnight events, slept well as per pt and also nursing staff. All systems reviewed and negative. Stated she has an electric wheelchair at home. Wants to go back home but if the is requesting placement then she would not mind going to snf. Scheduled for HD today Objective Physical Exam Most Recent Vital Signs: BP: 102 mmHg/47 mmHg (03/11/23747) Pulse: 50 (03/11/23747) Temp: 37 C (03/11/23 0300) Resp: 16 (03/11/23747) SpO2: 100 % (03/11/23747) Constitutional: No Apparent distress, on nasal cannula, hard of hearing, right IJ in place HEENT: normocephalic, atraumatic; no masses, tenderness, or adenopathy Eyes: PERRLA, sclera and conjunctiva normal Neck: supple, normal range of motion CV: Normal Rate and Normal Rhythm, no murmur, gallops or rub Chest: normal respiratory effort, lungs clear to auscultation Abdomen: normal: soft, bowel sounds normal, no masses, tenderness or organomegaly Musculoskeletal: (-) negative Extremities: no clubbing, cyanosis, or edema, otherwise grossly normal, warm, and dry Skin: warm, dry, intact: Neuro: alert, oriented to person, place, and time, normal mental status exam Psych: normal mood and affect, nonsuicidal, judgement normal, memory normal Peripheral Line Anterior;Left (Active) Number of days: 3 Dialysis Catheter Double Lumen Right Internal jugular (Active) Number of days: 2 STUDIES: Encounter Orders Labs and other studies reviewed with pertinent findings noted below: Labs: Recent Results (from the past 6 hour(s)) CBC Collection Time: 03/11/23 5:23 AM Result Value Ref Range WBC 7.49 4.00 [...] 11.1 fL nRBCs 0 <=0 /100 WBCs GLUCOSE METER, POINT OF CARE Collection Time: 03/11/23 6:43 AM Result Value Ref Range Glucose Meter 101 70 - 120 mg/dL Imaging: VASC PROCEDURE IN VASCULAR ANGIO SUITE Final Result This procedure will not be read by a Radiologist. Please see operative note. IR VENOUS FISTULOGRAM (Results Pending) Assessment and Plan 77 year old female with type 2 diabetes mellitus not on long-term insulin with ESRD and neuropathy,dementia, rheumatoid arthritis, Parkinson syndrome, HTN, ESRD on TTS, hypothyroidism HLD, obesity, RENÉ, GERD, COPD on home oxygen, chronic diastolic heart failure, chronic left bundle branch block, with history of CVA and OH, diverticulosis, int/ext hemorrhoids. Hysteroscopy w thickened endometriumw benign path. presents to the hospital as a transfer from [place] due to HD fistula dysfunction was not able to be cannulated today after several attempts . Transferred to [facility] for Fistulogram further workup and assessment. Patient has dialysis scheduled for TTS and missed last 2 sessions of dialysis prior to admission. Patient remained hemodynamically stable during the hospital stay, underwent fistulogram and placementof right internal jugular tunneled dialysis catheter by vascular surgery on 03/09/2023. Nephrology planning on for session of dialysis today. requesting placement to [facility] any rehab AVF malfunction status post fistulogram and tunneled dialysis catheter placement right-side 03/09/2023 ESRD TTS Nephro on board Appreciate vascular input Avoid nephrotoxic agents Renally dose medications BMP, Mg, Phos AM BMP daily PT OT evaluation Type 2 diabetes mellitus not on long-term insulin with ESRD and neuropathy Hold all oral antihyperglycemics while in the hospital SSI FS ACHS Continue to monitor glucose levels and adjust insulin as needed Physical deconditioning req placement to [facility] PT OT eval Will discuss with CM Other Chronic medical Problems Hypertensive heart disease with combined systolic and diastolic heart failure Obesity Hypothyroidism Dyslipidemia Primary parkinsonism COPD RENÉ on night time O2 History of CVA Dementia without behavioral probs Continue with PHARMACY RESIDENT medications, no new recommendations IMPRESSION : Principal Problem: Problem with dialysis access ([facility]) Active Problems: Hypothyroidism due to acquired atrophy of thyroid Obesity Type 2 diabetes mellitus with hemoglobin A1c goal of less than 7.0% ([facility]) Dyslipidemia, goal LDL below 100 AYSHA (generalized anxiety disorder) RENÉ on CPAP 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 factor ([facility]) Primary parkinsonism History of non-ST elevation myocardial infarction (NSTEMI) COPD, group B, by GOLD 2017 classification ([facility]) Chronic heart failure with preserved ejection fraction ([facility]) 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 ([facility]) Diabetes mellitus with ESRD (end-stage renal disease) ([facility]) History of CVA (cerebrovascular accident) 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[facility]) UTI (urinary tract infection) ESRD (end stage renal disease) on dialysis [facility] [place] 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 Resolved Problems: * No resolved hospital problems. * PHARMACOLOGIC VTE PROPHYLAXIS: hEParin CODE STATUS: Full Code EXPECTED DISCHARGE DATE: No information available I spent a total of 46 minutes coordinating, documenting, and providing care for this patient excluding time spent in the performance of separately billed services. * Alen Corbett PA-C - 03/10/2023 6:55 PM EST PROGRESS NOTE - Nephrology [facility] [place] [id number] [facility] Name: Kami French Location: [facility] H874/[id number] Date: 03/10/2023 Time: 6:56 PM 1 day(s) since admission Kami French was seen and examined 03/10/2023 in follow up of nephrology consultation Past Medical History: Diagnosis Date (HFpEF) heart failure with preserved ejection fraction (HCC) Acute on chronic diastolic (congestive) heart failure (HCC) 03/04/2020 [facility] Allergic rhinitis 02/15/2000 acute BMI 38.0-38.9,adult 08/28/2009 Chronic Sinusitis Unspecified Controlled substance agreement signed 11/25/2016 COVID-19 10/23/2021 Cystitis 05/23/2022 admitted [facility] home on cefuroxime Dyslipidemia, goal LDL below [...] positive rheumatoid factor ([facility] [place]) 07/18/2016 SDH (subdural hematoma) ([facility] [place]) 04/20/2019 acute Serrated polyp of colon 09/20/2022 7 mm descending colon Sleep apnea Tinnitus 01/2005 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 ([facility] [place]) Interval History past 24 hours: No acute events noted in chart or reported overnight at the time of writing. SUBJECTIVE: No metallic taste in mouth, hiccups, itching or other complaints Denies any new complaints or concerns Denies: nausea Vomiting Diarrhea chest pain shortness of breath swelling of legs abdominal distension Denies any additional complaints or concerns, all questions answered to apparent satisfaction. ROS: Otherwise negative unless indicated above. OBJECTIVE: Current hospital administered medications Acetaminophen (Tylenol) tab 650 mg Albuterol Sulfate (Proventil) (2.5 MG/3ML) 0.083% inhalation solution 2.5 mg aspirin enteric coated tab 162 mg atorvaSTATin (Lipitor) tab 80 mg carbidopa-levodopa 25-100 mg per tab (Sinemet) 1 Tablet cefTRIAXone in dextrose (Rocephin) IVPB 1 g dextrose 50 % inj 25 mL dextrose 50 % inj 50 mL Docusate Sodium (Colace) cap 100 mg fluticasone furoate-vilanterol (BREO ellipta) 200-25 MCG/ACT inhaler 1 Puff glucagon (Glucagen) inj 1 mg Glucose (Glutose 15) 40 % gel 15 g of glucose Glucose (Glutose 15) 40 % gel 30 g of glucose glucose chew tab 16 g guaiFENesin-dm (Robitussin DM) oral syrup 10 mL hEParin inj 7,500 Units house antacid (Mi-Acid II) oral susp 15 mL insulin aspart (NovoLOG) inj isosorbide mononitrate SA (Imdur) tab 30 mg Levothyroxine Sodium (Levoxyl) tab 125 mcg melatonin tab 10 mg omeprazole (PriLOSEC) cap 20 mg ondansetron (Zofran) inj 4 mg Pregabalin (Lyrica) cap 100 mg sertraline (Zoloft) tab 100 mg sodium chloride 0.9 % flush/inj 3 mL Most Recent Vital Signs: BP: 96 mmHg/41 mmHg (03/10/23 1450) Pulse: 56 (03/10/23 1450) Temp: 36.67 C (03/10/23 1450) Resp: 18 (03/10/23 1450) SpO2: 100 % (03/10/23 1138) Vital Signs last 24 Hours: Systolic BP: Most Recent Systolic BP Av.7 mmHg Min: 93 mmHg Max: 116 mmHg Temperature: Most Recent Temperature Av.4 C Min: 36.22 C Max: 36.67 C Pulse: Pulse Av Min: 42 Max: 63 Respirations: Resp Av.8 Min: 17 Max: 18 SpO2: SpO2 Av.5 % Min: 97 % Max: 100 % Intake/Output Summary (Last 24 hours) at 03/10/2023 1856 Last data filed at 03/10/2023 1749 Gross per 24 hour Intake 1440 ml Output 5 ml Net 1435 ml Weight: 104.3 kg (229 lb 14.4 oz) Weight change: -0.953 kg (-2 lb 1.6 oz) (not applicable/charted if left blank) Physical Examination: Dialysis Access: R TDC, RUE AVF with thrill/bruit, bandage in place Constitutional: No acute distress, NC O2 Skin: warm, dry, and anicteric HEENT: mucous membranes moist and no scleral icterus CV:Normal Rate, Rhythm normal, and no friction rub Respiratory: Normal rate, Normal Effort, and No rales Abdomen: non distended Extremities: Trace edema lower extremities and No cyanosis Neuro: Awake, alert, responding to questions appropriately no asterixis Psych: calm and cooperative LABS: Lab results within last 7 days (see chart for full results) Units 03/10/23 0506 03/09/23 1049 Creatinine mg/dL 11.6* 10.2* BUN mg/dL 54* 46* Glucose mg/dL 100 108 Sodium mmol/L 141 142 Potassium mmol/L 4.2 3.8 Anion Gap mmol/L 18* 18* CO2 mmol/L 22 23 Chloride mmol/L 101 101 Lab results within last 7 days (see chart for full results) Units 03/10/23 0506 03/09/23 1049 03/09/23 0604 HGB g/dL 8.7* 9.5* 9.9* HCT % 30.3* 31.6* 34.6* WBC K/uL 8.53 8.26 7.59 PLT K/uL 244 273 284 Lab results within last 7 days (see chart for full results) Units 03/10/23 0506 03/09/23 1049 Magnesium mg/dL 2.5 2.4 Calcium mg/dL 9.0 9.0 Assessment: ESRD on TTS schedule via RUE AVF at [facility]- last two sessions. # AVF dysfunction s/p angioplasty/TDC insertion # Volume status: Clinically euvolemic. # Electrolytes: Within normal limits. # Acid base status: Acceptable. # Anemia # MBD #Elevated AGP in renal failure # missed HD Recommendations: Next dialysis prescription on 03/11/2023, 1st shift, missed last HD. Assess for epo with HD, check iron studies/ferritin -CKD-MBD acceptable Dosing and medication considerations adjusted for Intermittent hemodialysis Daily: -morning renal panel -intake and output recording -weight measurements (standing preferable as tolerated) Please contact [facility] nephrology if there are any questions or concerns during the day or conservation educator nephrology after 5:00pm. Dr. Huyen MD is the attending mangle press catcher supervising the care of this patient. All other hospital and follow up care at the direction of the primary hospital team. Please see the attending mangle press catcher's cosign for any additional recommendations or changes in thescope of care. Alen Corbett PA-C 03/10/2023 Associated attestation - Akanksha Matson MD - 03/10/2023 7:19 PM EST I have reviewed the advanced practitioner documentation and agree. I saw and evaluated the patient on date of service referenced in note and have performed the following medically appropriate historyand/or exam, HD tomorrow * Vidhi Laguerre MD - 03/10/2023 7:25 AM EST Images from the original note were not included. [facility] H874/A INTERVAL HISTORY: The patient was seen examined very early this morning before 7:00 a.m. at the bedside, patient was resting comfortably/sleeping, opens eyes on verbal commands, very hard of hearing, denies any overnight events to me. All systems reviewed and negative. Discussed with the patient scheduled for dialysis today. Also discussed with the patient that I spoke to her yesterday requesting rehab placement. Objective Physical Exam Most Recent Vital Signs: BP: 98 mmHg/35 mmHg (03/10/23224) Pulse: 44 (03/10/23224) Temp: 36.61 C (03/10/23224) Resp: 18 (03/10/23224) SpO2: 97 % (03/09/232153) Constitutional: No Apparent distress, on nasal cannula, hard of hearing, right IJ in place HEENT: normocephalic, atraumatic; no masses, tenderness, or adenopathy Eyes: PERRLA, sclera and conjunctiva normal Neck: supple, normal range of motion CV: Normal Rate and Normal Rhythm, no murmur, gallops or rub Chest: normal respiratory effort, lungs clear to auscultation Abdomen: normal: soft, bowel sounds normal, no masses, tenderness or organomegaly Musculoskeletal: (-) negative Extremities: no clubbing, cyanosis, or edema, otherwise grossly normal, warm, and dry Skin: warm, dry, intact: Neuro: alert, oriented to person, place, and time, normal mental status exam Psych: normal mood and affect, nonsuicidal, judgement normal, memory normal Peripheral Line Anterior;Left (Active) Number of days: 2 Dialysis Catheter Double Lumen Right Internal jugular (Active) Number of days: 1 STUDIES: Encounter Orders Labs and other studies reviewed with pertinent findings noted below: Labs: Recent Results (from the past 6 hour(s)) CBC Collection Time: 03/10/23 5:06 AM Result Value Ref Range WBC 8.53 4.00 [...] 0 <=0 /100 WBCs BASIC METABOLIC PANEL Collection Time: 03/10/23 5:06 AM Result Value Ref Range BUN 54 (H) [...] Calcium 9.0 8.4 - 10.2 mg/dL MAGNESIUM Collection Time: 03/10/23 5:06 AM Result Value Ref Range Magnesium 2.5 1.5 - 2.6 mg/dL Imaging: VASC PROCEDURE IN VASCULAR ANGIO SUITE Final Result This procedure will not be read by a Radiologist. Please see operative note. IR VENOUS FISTULOGRAM (Results Pending) Assessment and Plan 77 year old female with type 2 diabetes mellitus not on long-term insulin with ESRD and neuropathy,dementia, rheumatoid arthritis, Parkinson syndrome, HTN, ESRD on TTS, hypothyroidism HLD, obesity, RENÉ, GERD, COPD on home oxygen, chronic diastolic heart failure, chronic left bundle branch block, with history of CVA and OH, diverticulosis, int/ext hemorrhoids. Hysteroscopy w thickened endometriumw benign path. presents to the hospital as a transfer from [facility] due to HD fistula dysfunction was not able to be cannulated today after several attempts . Transferred to [facility] for Fistulogram further workup and assessment. Patient has dialysis scheduled for TTS and missed last 2 sessions of dialysis prior to admission. Patient remained hemodynamically stable during the hospital stay, underwent fistulogram and placement of right internal jugular tunneled dialysis catheter by vascular surgery on 03/09/2023. Nephrologyplanning on for session of dialysis tomorrow. requesting placement to [facility] any rehab AVF malfunction status post fistulogram and tunneled dialysis catheter placement right-side 03/09/2023 ESRD TTS Nephrology to do dialysis today Appreciate vascular input Avoid nephrotoxic agents Renally dose medications BMP, Mg, Phos AM BMP daily PT OT evaluation Type 2 diabetes mellitus not on long-term insulin with ESRD and neuropathy Hold all oral antihyperglycemics while in the hospital SSI FS ACHS Continue to monitor glucose levels and adjust insulin as needed Other Chronic medical Problems Hypertensive heart disease with combined systolic and diastolic heart failure Obesity Hypothyroidism Dyslipidemia Primary parkinsonism COPD History of CVA Dementia Continue with PHARMACY RESIDENT medications, no new recommendations IMPRESSION : Principal Problem: Problem with dialysis access (HCC) Active Problems: Hypothyroidism due to acquired atrophy of thyroid Obesity Type 2 diabetes mellitus with hemoglobin A1c goal of less than 7.0% ([facility] [place]) Dyslipidemia, goal LDL below 100 AYSHA (generalized anxiety disorder) RENÉ on CPAP 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 factor ([facility] [place]) Primary parkinsonism History of non-ST elevation myocardial infarction (NSTEMI) COPD, group B, by GOLD 2017 classification ([facility] [place]) Chronic heart failure with preserved ejection fraction ([facility] [place]) 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 ([facility] [place]) 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) History of CVA (cerebrovascular accident) 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HCC) UTI (urinary tract infection) ESRD (end stage renal disease) on dialysis (HCC) Resolved Problems: * No resolved hospital problems. * PHARMACOLOGIC VTE PROPHYLAXIS: hEParin CODE STATUS: Full Code EXPECTED DISCHARGE DATE: No information available I spent a total of 46 minutes coordinating, documenting, and providing care for this patient excluding time spent in the performance of separately billed services. documented in this encounter H&P Notes * Edgar Abdi CRNP - 03/09/2023 5:18 AM EST HISTORY AND PHYSICAL EXAMINATION - Hospital Medicine [address] [address] Name: Kami French Location: [facility] [place] H874/[id number] Date: 03/09/2023 Time: 5:18 AM Admit date 03/09/2023 PRESENTING PROBLEM: HD fistula malfunction HPI: Kami French is a 77 year old female with DM, dementia, rheumatoid arthritis, Parkinson syndrome, HTN, ESRD on TTS, hypothyroidism HLD, obesity, RENÉ, GERD, COPD, CHF with history of CVA and OH. presents to the hospital as a transfer from [facility] due to HD fistula dysfunction was not ableto be cannulated today after several attempts . Transferred to [facility] for Fistulogram further workup and assessment. From [facility] HPI "Pt admitted to [facility] with dyspnea and did not go to HD in the beginning of the week. She had edema as well. She had HD x 2 consecutive days and was to have HD today but after several attempts to cannulate her HD fistula they were not able. " Results that were sent with the patient showed UTI with E coli that was sensitive to ceftriaxone and blood cultures 2/4 positive for Staphylococcus. Patient currently endorses intermittent SOB and Denies fever, chills, facial droop, stuttering, drooling, cough, dysuria, hematuria, abdominal pain, nausea, vomiting, diarrhea, CP, SOB, melena or other associated symptoms. PAST MEDICAL HISTORY: Past Medical History: Diagnosis Date (HFpEF) heart failure with preserved ejection fraction ([facility] [place]) Acute on chronic diastolic (congestive) heart failure ([facility] [place]) 03/04/2020 [facility] Allergic rhinitis 02/15/2000 acute BMI 38.0-38.9,adult 08/28/2009 Chronic Sinusitis Unspecified Controlled substance agreement signed 11/25/2016 COVID-19 10/23/2021 Cystitis 05/23/2022 admitted [facility] home on cefuroxime Dyslipidemia, goal LDL below 100 Esophagitis determined by biopsy 04/19/2022 LA grade B esophagitis, inflammation gastric antrum, body and duodenum AYSHA (generalized anxiety disorder) Hearing loss, sensorineural 01/2005 History of non-ST elevation myocardial infarction (NSTEMI) 08/24/2018 HTN (hypertension) Meniere's disease Multiple falls 04/20/2019 History of falls on the pl NSTEMI (non-ST elevated myocardial infarction) ([facility] [place]) 09/03/2018 Parkinson disease Rectal bleeding Restless leg syndrome 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 factor ([facility] [place]) 07/18/2016 SDH (subdural hematoma) ([facility] [place]) 04/20/2019 acute Serrated polyp of colon 09/20/2022 7 mm descending colon Sleep apnea Tinnitus 01/2005 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 ([facility] [place]) PAST SURGICAL HISTORY: Past Surgical History: Procedure Laterality Date ARTHROPLASTY KNEE TOTAL Left Dr. Del Real CARPAL TUNNEL SURGERY Bilateral COLONOSCOPY, DIAGNOSTIC (RECTUM) 11/27/2015 normal, repeat 10 yrs/COLONOSCOPY FLEXIBLE PROXIMAL DIAGNOSTIC performed by Garrett Chang MD at ENDOSCOPY [facility] EGD, FLEXIBLE, DIAGNOSTIC 04/19/2022 esophagitis, repeat 8-12 wks / [facility] EGD, FLEXIBLE, DIAGNOSTIC 06/26/2022 normal, retained food / [facility] EXPLORATION OF MAXILLARY SINUS 03/17/1995 Sinus Surgery HYSTEROSCOPY,DIAGNOSTIC 2022 atrophic endometrium, endometrial polyp INJECTION LUMBAR/SACRAL 07/31/2015 INJECTION SPINE LUMBAR OR SACRAL performed by Quincy Prado DO at OR [facility] INJECTION LUMBAR/SACRAL 08/15/2015 INJECTION SPINE LUMBAR OR SACRAL performed by Quincy Arteaga Cousins, DO at OR [facility] CAT,W/O PUMP;5YR/OLD N/A 11/04/2019 INSERT TUNNELED CENTRAL VENOUS CATHETER AGE 6 OR OLDER performed by Ortega Montez DO at OR [facility] LIGATE/CUT OVIDUCT(S) MISCELLANEOUS ORDER ([facility] ONLY) Bilateral Heel surgery MISCELLANEOUS ORDER ([facility] ONLY) Right 3rd toe nerve decompression, Dr. Del Real [place] COLSC FLX W/RMVL OF TUMOR POLYP LESION SNARE TQ 09/20/2022 7 mm serrated polyp descending colon FAMILY HISTORY: Family History Problem Relation Age of Onset Heart Disorder Father also had AAA, age 85 Diabetes Father Hypertension Father Musculo-skeletal Disorder Mother has myasthenia gravis, now age 75 Hypertension Mother Neurological Disorder Brother myotonic dystrophy Neurological Disorder Sister wheelchair bound, indwelling Kirby Neurological Disorder Sister myotonic dystrophy Diabetes Brother Diabetes Sister Diabetes Sister Heart Disorder Sister SOCIAL HISTORY: Social History Tobacco Use Smoking status: Former Packs/day: 0.25 Years: 50.00 Additional pack years: 0.00 Total pack years: 12.50 Types: Cigarettes Quit date: 04/20/1989 Years since quittin.9 Smokeless tobacco: Never Tobacco comments: smoked since 19 years of age. Smokes a pack every 3-4 days. Vaping Use Vaping Use: Never used Substance Use Topics Alcohol use: Never Drug use: Never PHARMACY RESIDENT Medications: Prior to admission medications have been reviewed. ALLERGIES: Patient has no known allergies. ROS: As per HPI, all other systems reviewed and negative PHYSICAL EXAMINATION: Most Recent Vital Signs: BP: 111 mmHg/48 mmHg (03/09/23 0330) Pulse: 56 (03/09/23 0330) Temp: 36.5 C (03/09/23 0330) Resp: 17 (03/09/23 033) SpO2: 97 % (03/09/23329) Constitutional: No Apparent distress HEENT: normocephalic, atraumatic; no masses, tenderness, or adenopathy Eyes: PERRLA, sclera and conjunctiva normal Neck: supple, normal range of motion CV: Normal Rate and Normal Rhythm, no murmur, gallops or rub Chest: normal respiratory effort, lungs clear to auscultation Abdomen: normal: soft, bowel sounds normal, no masses, tenderness or organomegaly Musculoskeletal: (-) negative Extremities: no clubbing, cyanosis, or edema, otherwise grossly normal, warm, and dry Skin: warm, dry, intact: Neuro: alert, oriented to person, place, and time, normal mental status exam Psych: normal mood and affect, nonsuicidal, judgement normal, memory normal LABS: Please see transfer doc IMAGING: Please see transfer doc IMPRESSION and PLAN: Principal Problem: Problem with dialysis access (HCC) (POA: Yes) Active Problems: Hypothyroidism due to acquired atrophy of thyroid (POA: Yes) Obesity (POA: Yes) Type 2 diabetes mellitus with hemoglobin A1c goal of less than 7.0% (HCC) (POA: Yes) Dyslipidemia, goal LDL below 100 (POA: Yes) AYSHA (generalized anxiety disorder) (POA: Yes) RENÉ on CPAP (POA: Yes) 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 factor (HCC) (POA: Yes) Primary parkinsonism (POA: Yes) History of non-ST elevation myocardial infarction (NSTEMI) (POA: Yes) COPD, group B, by GOLD 2017 classification ([facility] [place]) (POA: Yes) Chronic heart failure with preserved ejection fraction (HCC) (POA: Yes) 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 (HCC) (POA: Yes) Diabetes mellitus with ESRD (end-stage renal disease) ([facility] [place]) (POA: Yes) History of CVA (cerebrovascular accident) (POA: Yes) 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HCC) (POA: Yes) Resolved Problems: * No resolved hospital problems. * POA = Present On Admission PROBLEM BASED ASSESSMENT WITH DIFFERENTIAL: Problem with dialysis access ESRD TTS Consult to Nephrology Fistulogram Avoid nephrotoxic agents Renally dose medications BMP, Mg, Phos AM BMP daily Type 2 diabetes mellitus Hold all oral antihyperglycemics while in the hospital Start medium dose SSI glucose checks a.c. HS Hypoglycemia protocol Hypertensive heart disease with combined systolic and diastolic heart failure Patient is identified as having combined systolic and diastolic heart failure that is acute on chronic. CHF is currently controled. Continue medications and HD and monitor clinical status closely. Monitor strict Is&Os and daily weights. Place on fluid restriction of 1.5L. Continue to stress to patient importance of self efficacy and student financial services counselor on diet for CHF. Check BNP Obesity Body mass index is 42.43 kg/m. obesity complicates all aspects of disease management from diagnostic modalities to treatment. Weight loss encouraged and health benefits explained to patient. Chronic Problems/PHARMACY RESIDENT medications: Hypothyroidism: chronic, stable, continue PHARMACY RESIDENT regimen Dyslipidemia: chronic, stable, continue PHARMACY RESIDENT regimen Primary parkinsonism: chronic, stable, continue PHARMACY RESIDENT regimen COPD: chronic, stable, continue PHARMACY RESIDENT regimen History of CVA: chronic, stable, continue PHARMACY RESIDENT regimen Dementia: chronic, stable, continue PHARMACY RESIDENT regimen Diet: NPO x Meds DVT PPx: Heparin 5000 Units Q 8 Hrs Anticipated Date of Discharge: 2 days or more Primary Contact: patient CODE STATUS ON ADMISSION: Full Code This patient was discussed with Nathen Aguilar at the time of admission. I spent a total of 66 minutes coordinating, documenting, and providing care for this patient excluding time spent in the performance of separately billed services. [facility] Department of Hospital Medicine [facility] Associated attestation - Nathen Montalvo MD - 03/09/2023 8:03 AM EST I have reviewed the advanced practitioner documentation and agree. I saw and evaluated the patient on date of service referenced in note and have performed the following medically appropriate historyand/or exam: 77 years old white female lives at home with her and apparently unable to ambulate. She is hard of hearing and a poor informant partly because of memory issues. She was originally hospitalized at [facility] with respiratory distress on March 05, 2023. She was noted to be in fluid overload and also had UTI.. She has end-stage renal disease on hemodialysis viaright upper extremity AV fistula that seems to be malfunctioning and is in need of a fistulogram which prompted her transfer to [facility]. Will need to have vascular surgery/IR along with Nephrology involved in her care. Rest as per AP note documented in this encounter Procedure Notes * Miguel Jackson MD - 03/16/2023 8:16 AM ESTAssociated Order(s): EKG REASON FOR STUDY: bradycardia CONCLUSIONS: Sinus bradycardia Left bundle branch block When compared with ECG of 09-DEC-2022 10:27, Premature atrial complexes are no longer Present T wave inversion no longer evident in Inferior leads Ventricular Rate: 53 Atrial Rate: 53 [place] Interval: 206 QRS Duration: 150 QT/QTc: 510/478 ms P-R-T [place]: 35 : 90 : 55 degrees documented in this encounter Consult Notes * Azucena Olmos, OTR/L - 03/17/2023 9:30 AM ESTAssociated Order(s): ADULT OCCUPATIONAL THERAPY CONSULT IP GENERAL EVALUATION - Occupational Therapy [address] [address] Name: Kami French Location: [facility] [id number] Date: 03/17/2023 Time: 9:28 AM Kami French is a 77 year old female. Patient Status: Inpatient Insurance: Payor: [employer] Plan: [employer] CLASSIC 1 PART D [id number] Product Type: *No Product type* Payor: [employer] PA Plan: [employer] [facility] Product Type: HMO Patient Seen: at bedside, nursing cleared patient for therapy Patient Identified By: Name, ID Band and Date Diagnosis: fistula malfuncton (03/17/23927) Status of treatment: Evaluation completed (03/17/23927) Orders: OT evaluation and treatment;OT OOB (03/17/23927) Weight Bearing Status: Weight bearing as tolerated (03/17/23927) Precautions: Safety (03/17/23927) Total Treatment Time: 8 (03/17/23927) Past Medical History: Past Medical History: Diagnosis Date (HFpEF) heart failure with preserved ejection fraction (HCC) Acute on chronic diastolic (congestive) heart failure (HCC) 03/04/2020 [facility] Allergic rhinitis 02/15/2000 acute BMI 38.0-38.9,adult 08/28/2009 Chronic Sinusitis Unspecified Controlled substance agreement signed 11/25/2016 COVID-19 10/23/2021 Cystitis 05/23/2022 admitted [facility] home on cefuroxime Dyslipidemia, goal LDL below [...] SDH (subdural hematoma) ([facility]) 04/20/2019 acute Serrated polyp of colon 09/20/2022 7 mm descending colon Sleep apnea Tinnitus 01/2005 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 Del Real CARPAL TUNNEL SURGERY Bilateral COLONOSCOPY, DIAGNOSTIC (RECTUM) 11/27/2015 normal, repeat 10 yrs/COLONOSCOPY FLEXIBLE PROXIMAL DIAGNOSTIC performed by Garrett Chang MD at ENDOSCOPY [facility] EGD, FLEXIBLE, DIAGNOSTIC 04/19/2022 esophagitis, repeat 8-12 wks / [facility] EGD, FLEXIBLE, DIAGNOSTIC 06/26/2022 normal, retained food / [facility] EXPLORATION OF MAXILLARY SINUS 03/17/1995 Sinus Surgery HYSTEROSCOPY,DIAGNOSTIC 2022 atrophic endometrium, endometrial polyp INJECTION LUMBAR/SACRAL 07/31/2015 INJECTION SPINE LUMBAR OR SACRAL performed by Quincy Prado DO at OR [facility] INJECTION LUMBAR/SACRAL 08/15/2015 INJECTION SPINE LUMBAR OR SACRAL performed by Quincy Prado DO at OR [facility] INSER MARLI CAT,W/O PUMP;5YR/OLD N/A 11/04/2019 INSERT TUNNELED CENTRAL VENOUS CATHETER AGE 5 OR OLDER performed by Ortega Montez DO at OR [facility] INSER MARLI CAT,W/O PUMP;5YR/OLD Right 03/09/2023 INSERT TUNNELED CENTRAL VENOUS CATHETER AGE 5 OR OLDER performed by Fred Brown MD at OR [facility] INTRO CATH DIALYSIS CIRCUIT W/TRANSLUM BALLOON ANGIOPLASTY Right 03/09/2023 AV FISTULOGRAM & PERIPHERAL ANGIOPLASTY performed by Fred Brown MD at OR [facility] LIGATE/CUT OVIDUCT(S) MISCELLANEOUS ORDER ([facility] ONLY) Bilateral Heel surgery MISCELLANEOUS ORDER ([facility] ONLY) Right 3rd toe nerve decompression, Dr. Del Real [place] COLSC FLX W/RMVL OF TUMOR POLYP LESION SNARE TQ 09/20/2022 7 mm serrated polyp descending colon Social History/Disposition Lives with: Spouse (03/17/23927) Assistance available: Yes (03/17/23927) Dwelling type: Single story home (03/17/23927) Entry steps: None (03/17/23927) Inside steps: None (03/17/23927) Bedroom location: 1st floor (03/17/23927) Bath location: 1st floor full bath (03/17/23927) Prior Level of Function Reported by: Patient (03/17/23927) Ambulation: Non-ambulatory with electric wheelchair;Transfer via (03/17/23927) Transfer Via: Pino lift (03/17/23927) Grooming: Independent (03/17/23927) Bathing: Assistance (03/17/23927) Dressing: Assistance (03/17/23927) Feeding: Independent (03/17/23927) Toileting: Assistance (03/17/23927) Durable Medical Equipment at home: (electric wheelchair) (03/17/23927) Subjective: Pt was noted to be supine in bed upon arrival and agreeable to therapy services. Pain: No complaints of pain Observations Consciousness: Alert (03/17/23927) Orientation: Oriented times 4 (03/17/23927) Psychosocial: Patient can communicate basic needs;Patient can converse in a social setting (03/17/23927) Sitting posture: Forward head;Rounded shoulders (03/17/23927) Standing posture: Not assessed (03/17/23927) Safety awareness: The Patient verbalizes insight of current deficits.;The Patient demonstrates carryover of insight during functional tasks.;The Patient can communicate basic needs.;Needs cueing supervision. (03/17/23927) Other Findings Endurance: Poor (03/17/23927) Light touch sensation: LUE;RUE;Intact (03/17/23927) Coordination: LUE;RUE;Intact (03/17/23927) Current Functional Status: Bilateral Upper Extremity Range of Motion: WFL (03/17/23927) Strength Assessment: (4+/5 throughout BUEs) (03/17/23927) Self Care Able to provide self care: Yes (03/11/23 1122) Dressing Upper Body: Minimal Assistance (simulated) (03/17/23927) Lower Body: Dependent (03/17/23927) Functional Ambulation Assistive Device: No device (03/17/23927) Distance in feet:: 0 (03/17/23927) Level of Assistance: N/A (03/17/23927) Bed Mobility Supine-Sit: Moderate Assistance (x2) (03/17/23927) Sit-Supine: Minimal Assistance (03/17/23927) Balance Sit (Static): Fair (-) (03/17/23927) Sit (Dynamic): Fair (-) (03/17/23927) Stand (Static): Not Tested (03/17/23927) Stand (Dynamic): Not Tested (03/17/23927) Alarm Status Patient positioned in: Bed (03/17/23927) With: Bed alarm intact and functioning and call reina in reach (03/17/23927) Patient and Family Goals: to get well Patient Education Education Topic: Role of OT;Plan of care goals (03/17/23927) Review of Precautions: Safety;Fall (03/17/23927) Method of Education: Verbalized to patient (03/17/23927) Education Provided to: Patient (03/17/23927) Response to Education: Receptive and agreeable to education (03/17/23927) Barriers to learning: Medical status (03/17/23927) Preferred learning method: Combination (03/17/23927) Treatment Provided: Evaluation Moderate Complexity 8 minutes - 60656: Patient was cooperative and pleasant during treatment session. Moderate complexity evaluation performed and 3-5 activity limitations were identified, including ADL deficit, bed mobility deficit, decreased strength, decreased endurance, and impaired balance. Minimal or moderate modification of the functional task was necessary to complete the evaluation. Deficits Requiring O.T. Treatment: Deficits requiring O.T. treatment needs: ADL/self-care;Balance;Endurance;Safety;Upper extremity strength;Weakness (bd mobility) (03/17/23927) Goals: Demonstrates Self-care at: Feeding: Modified Independent Grooming: Modified Independent Toileting: Modified Independent UE dressing: Modified Independent UE bathing: Modified Independent LE dressing: Modified Independent LE bathing: Modified Independent Demonstrates Bed Mobility at: Supine-Sit: Supervision Sit-Supine: Supervision Balance: Static Sitting: Fair+ Dynamic Sitting: Fair+ Strength/ROM: Increase BUE strength 1/2 muscle grade Endurance: Increase endurance to 30/30 minutes in order to improve participation in ADL tasks and general mobility Safety awareness/Cognition: Increase safety awareness during functional mobility Goal Time Frame: 8 visits Assessment: Pt was admitted to [facility] for the above dx. Pt was pleasant and cooperative during her OT evaluation this date. Upon arrival, pt was supine in bed and agreeable to therapy services. Prior level of function and social history were obtained from previous evaluation completed on 03/11/23. Upon exam, pt performed supine to sit with mod A x 2. Once seated edge of bed, pt completed simulated UE dressing task with min A secondary to balance deficits and LE dressing task with total A due to limited reach. Pt states she has not stood in years and utilizes a electric wheelchair for mobility, transferring via a pino lift at baseline at home so sit<>stand transfer/ambulation not attempte d. Following session, pt was noted to return to supine position with min A and call reina in reach. All needs met. Currently, pt presents with difficulty in ADL completion and general mobility secondary to decreased strength, balance, endurance, safety awareness, and overall current medical status. Pt would benefit from edge of bed acute OT services to increase her independence with ADL tasks and general mobility. In regard to discharge, please consider [facility] which [facility], [facility], outpatient therapy or inpatient rehabilitation. The level of care will be determined in collaboration with patient, family/caregiver and care team members. Treatment Plan: Energy Conservation, Safety, Bed mobility training, Upper extremity strengthening, Balance activities, ADL training, Endurance, and Educate on safety with ADLs and bed mobility. Anticipated Frequency (on eval): 1 to 3 times per week (03/17/23927) AM-PAC Help From Another Person Eating Meals: A little (03/17/23927) Help From Another Person Taking Care of Personal Grooming: A little (03/17/23927) Help From Another Person To Put On/Take Off Upper Body Clothing: A little (03/17/23927) Help From Another Person To Put On/Take Off Lower Body Clothing: Total (03/17/23927) Help From Another Person Toileting: Total (03/17/23927) Help From Another Person Bathing: A lot (03/17/23927) OT AM-PAC Score: 13 (03/17/23927) OT AM-PAC t-Scale Score: 32.03 (03/17/23927) HLM (Highest Level of Mobility) Goal: Level 3 sit at edge of bed (03/17/23920) A portion of this AM-PAC assessment not scored based on functional assessment; rather clinical decision making utilized based on current findings and/or prior level of function. Please refer to future AM-PAC calculations of functional ability as they become available. * Marcella Schuler PT - 03/17/2023 9:21 AM ESTAssociated Order(s): ADULT PHYSICAL THERAPY CONSULT IP GENERAL EVALUATION - Physical Therapy [address] [address] Name: Kami French Location: [facility] [id number] Date: 03/17/2023 Time: 920 Kami French is a/an 77 year old female. Patient Status: Inpatient Insurance: Payor: [employer] Plan: [employer] CLASSIC 1 PART D MC-LD Product Type: *No Product type* Payor: [employer] ROD Plan: [employer] [facility] Product Type: HMO Patient Seen: at bedside, nursing cleared patient for therapy Patient Identified By: Name, ID Band and Date Diagnosis: dialysis AV fistula malfunction (03/17/23920) Status of treatment: Evaluation completed (03/17/23920) Orders: PT evaluation and treatment;OOB (03/17/23920) Weight Bearing Status: Weight bearing as tolerated (03/17/23920) Precautions: Alarms;Falls;Safety (03/17/23920) Total Treatment Time--free text: 8 (03/17/23920) Past Medical History: Past Medical History: Diagnosis Date (HFpEF) heart failure with preserved ejection fraction (HCC) Acute on chronic diastolic (congestive) heart failure ([facility]) 03/04/2020 [facility] Allergic rhinitis 02/15/2000 acute BMI 38.0-38.9,adult 08/28/2009 Chronic Sinusitis Unspecified Controlled substance agreement signed 11/25/2016 COVID-19 10/23/2021 Cystitis 05/23/2022 admitted [facility] home on cefuroxime Dyslipidemia, goal LDL below 100 Esophagitis determined by biopsy 04/19/2022 LA grade B esophagitis, inflammation gastric antrum, body and duodenum AYSHA (generalized anxiety disorder) Hearing loss, sensorineural 01/2005 History of non-ST elevation myocardial infarction (NSTEMI) 08/24/2018 HTN (hypertension) Meniere's disease Multiple falls 04/20/2019 History of falls on the pl NSTEMI (non-ST elevated myocardial infarction) ([facility]) 09/03/2018 Parkinson disease Rectal bleeding Restless leg syndrome 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 factor (HCC) 07/18/2016 SDH (subdural hematoma) ([facility]) 04/20/2019 acute Serrated polyp of colon 09/20/2022 7 mm descending colon Sleep apnea Tinnitus 01/2005 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 Del Real CARPAL TUNNEL SURGERY Bilateral COLONOSCOPY, DIAGNOSTIC (RECTUM) 11/27/2015 normal, repeat 10 yrs/COLONOSCOPY FLEXIBLE PROXIMAL DIAGNOSTIC performed by Garrett Chang MD at ENDOSCOPY [facility] EGD, FLEXIBLE, DIAGNOSTIC 04/19/2022 esophagitis, repeat 8-12 wks / [facility] EGD, FLEXIBLE, DIAGNOSTIC 06/26/2022 normal, retained food / [facility] EXPLORATION OF MAXILLARY SINUS 03/17/1995 Sinus Surgery HYSTEROSCOPY,DIAGNOSTIC 2022 atrophic endometrium, endometrial polyp INJECTION LUMBAR/SACRAL 07/31/2015 INJECTION SPINE LUMBAR OR SACRAL performed by Quincy Prado DO at OR [facility] INJECTION LUMBAR/SACRAL 08/15/2015 INJECTION SPINE LUMBAR OR SACRAL performed by Quincy Prado, at OR [facility] INSER MARLI CAT,W/O PUMP;5YR/OLD N/A 11/04/2019 INSERT TUNNELED CENTRAL VENOUS CATHETER AGE 5 OR OLDER performed by Ortega Montez DO at OR [facility] INSER MARLI CAT,W/O PUMP;5YR/OLD Right 03/09/2023 INSERT TUNNELED CENTRAL VENOUS CATHETER AGE 5 OR OLDER performed by Fred Brown MD at OR [facility] INTRO CATH DIALYSIS CIRCUIT W/TRANSLUM BALLOON ANGIOPLASTY Right 03/09/2023 AV FISTULOGRAM & PERIPHERAL ANGIOPLASTY performed by Fred Brown MD at OR [facility] LIGATE/CUT OVIDUCT(S) MISCELLANEOUS ORDER ([facility] ONLY) Bilateral Heel surgery MISCELLANEOUS ORDER ([facility] ONLY) Right 3rd toe nerve decompression, Dr. Del Real [place] COLSC FLX W/RMVL OF TUMOR POLYP LESION SNARE TQ 09/20/2022 7 mm serrated polyp descending colon Subjective: Patient resting in bed, agrees to PT evaluation Social History/Disposition Lives with: Spouse (03/17/23920) Assistance available: Yes (03/17/23920) Dwelling type: Single story home (03/17/23920) Entry steps: None (03/17/23920) Inside steps: None (03/17/23920) Bedroom location: 1st floor (03/17/23920) Bath location: 1st floor full bath (03/17/23920) Prior Level of Function Reported by: Patient (03/17/23920) Ambulation: Non-ambulatory with electric wheelchair;Transfer via (03/17/23920) Transfer Via: (ceilign lift) (03/17/23920) Devices at home: (ceiling lift, electric wheelchair) (03/17/23920) Observations Consciousness: Alert (03/17/23920) Orientation: Person;Situation (others not tested) (03/17/23920) Psychosocial: Patient can communicate basic needs (03/17/23920) Other Findings: Yes (03/17/23920) Findings: Light touch sensation (03/17/23920) Light Touch Sensation Results: Intact;LLE;RLE (03/17/23920) Sitting Posture: Forward head;Rounded shoulders (03/17/23920) Standing Posture: Not assessed (03/17/23920) Pain: No complaints of pain Range of Motion Range of Motion: WFL (03/17/23920) Strength Assessment Strength Assessment: Deficits noted (03/17/23920) WNL, except: LLE;RLE (03/17/23920) LLE: Hip;Knee;3/5;Ankle;4/5 (03/17/23920) RLE: Hip;Knee;3/5;Ankle;4/5 (03/17/23920) P.T. Bed Mobility Supine-Sit: Moderate Assistance (x2) (03/17/23920) Sit-Supine: Minimal Assistance (03/17/23920) Balance Sit (Static): Fair (-) (03/17/23920) Sit (Dynamic): Fair (-) (03/17/23920) Stand (Static): Not Tested (03/17/23920) Stand (Dynamic): Not Tested (03/17/23920) Patient and or Family Goal(s): to get well Patient Education Review of Precautions: Safety (role of PT) (03/17/23920) Safety Awareness: Patient verbalizes insight of current deficits;Patient demonstrates carryover of insight during functional tasks (03/17/23920) Preferred learning method: Combination (03/17/23920) Barriers to learning: Medical Status (03/17/23920) Method of Education: Verbalized to patient (03/17/23920) Topic of Education: Safety with mobility and Goals/plan of care Method of Education: Verbal discussion and explanation provided to patient: verbalized understanding and or agreement of this information Treatment Provided: Evaluation Moderate Complexity 8 minutes - 26781: Patient was cooperative and pleasant during treatment session. Moderate complexity evaluation performed and 1-2 personal factors or comorbidities were identified that will impact plan of care, including history of COPD and cardiac history. Patient presents with limitations in strength, bed mobility, balance, and endurance, which will impact plan of care. These limitations will be addressed by the goals set for this patient. Alarm Status Patient positioned in: Bed (03/17/23920) With: Bed alarm intact and functioning and call reina in reach (03/17/23920) Treatment Status: Treatment at bedside (03/17/23920) Goals: Demonstrate Bed Mobility with: Sit to supine: minimal assistance Supine to sit:supervision Increase Strength: to 5/5 BLE Increase Balance: fair sitting Time Frame: 10 visits Assessment: Patient is 77 y/o female with dx dialysis AV fistula malfunction. Prior to admission, patient lives with spouse and was dependent for mobility with ceiling lift and electric wheelchair. Patient currently requires moderate assistance x2 for supine to sit. Contact guard for sitting balance. Minimal assistance to return to supine. Further mobility not assessed as patient reports she has not stood in years and is dependent for mobility. Ended session with patient resting comfortably in bed. Patient's mobility is limited by decreased LE strength, decreased balance, overall medical status, and decreased activity tolerance. Patient would benefit from continued PT to maximize functional independence. Please consider post-acute care services which may include home health, long-term, outpatient therapy or inpatient rehabilitation. The level of care will be determined in collaboration with patient, family/caregiver and care team members. Deficits requiring P.T. treatment needs: Mobility;Balance;Weakness;Endurance;Lower extremity strength (03/17/23920) Equipment Needs: Equipment needs: (tbd) (03/17/23920) Treatment Plan: Bed mobility training, Transfer training, Strengthening exercises: BLR, and Balanceactivities Anticipated Frequency (on eval): 1 to 3 times per week (03/17/23920) AM PAC Score with Stairs: 8 A portion of this AM-PAC assessment not scored based on functional assessment; rather clinical decision making utilized based on current findings and/or prior level of function. Please refer to future AM-PAC calculations of functional ability as they become available. * Matthew Manley, OT - 03/11/2023 11:25 AM ESTAssociated Order(s): ADULT OCCUPATIONAL THERAPY CONSULT IP GENERAL EVALUATION- Occupational Therapy [address] [id number] Name: Kami French Location: [facility] [id number] Date: 03/11/2023 Time: 12:47 PM HPI: Per BERNARDO, "Kami French is a 77 year old female with DM, dementia, rheumatoid arthritis, Parkinson syndrome, HTN, ESRD on TTS, hypothyroidism HLD, obesity, RENÉ, GERD, COPD, CHF with history ofCVA and OH. presents to the hospital as a transfer from [facility] due to HD fistula dysfunction was not able to be cannulated today after several attempts . Transferred to [facility] for Fistulogram further workup and assessment. From [facility] HPI "Pt admitted to [facility] with dyspnea and did not go to HD in the beginning of the week. She had edema as well. She had HD x 2 consecutive days and was to have HD today but after several attempts to cannulate her HD fistula they were not able. " Results that were sent with the patient showed UTI with E coli that was sensitive to ceftriaxone and blood cultures 2/4 positive for Staphylococcus. Patient currently endorses intermittent SOB and Denies fever, chills, facial droop, stuttering, drooling, cough, dysuria, hematuria, abdominal pain, nausea, vomiting, diarrhea, CP, SOB, melena or other associated symptoms." Patient Status: Inpatient Insurance: Payor: [employer] Plan: [employer] MARVIN 1 PART D MC-LD Product Type: *No Product type* Payor: [employer] PA Plan: [employer] [facility] Product Type: HMO Patient Seen: at bedside, nursing cleared patient for therapy Patient Identified By: Name, ID Band and Date Diagnosis: fistula malfuncton (03/11/231121) Status of treatment: Discontinue services on evaluation (03/11/231121) Orders: OT evaluation and treatment;OT OOB (03/11/231121) Weight Bearing Status: Weight bearing as tolerated (03/11/231121) Precautions: Safety (03/11/231121) Total Treatment Time: 10 (03/11/231121) Past Medical History: Past Medical History: Diagnosis Date (HFpEF) heart failure with preserved ejection fraction (HCC) Acute on chronic diastolic (congestive) heart failure (HCC) 03/04/2020 [facility] Allergic rhinitis 02/15/2000 acute BMI 38.0-38.9,adult 08/28/2009 Chronic Sinusitis Unspecified Controlled substance agreement signed 11/25/2016 COVID-19 10/23/2021 Cystitis 05/23/2022 admitted [facility] home on cefuroxime Dyslipidemia, goal LDL below [...] SDH (subdural hematoma) ([facility]) 04/20/2019 acute Serrated polyp of colon 09/20/2022 7 mm descending colon Sleep apnea Tinnitus 01/2005 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 Del Real CARPAL TUNNEL SURGERY Bilateral COLONOSCOPY, DIAGNOSTIC (RECTUM) 11/27/2015 normal, repeat 10 yrs/COLONOSCOPY FLEXIBLE PROXIMAL DIAGNOSTIC performed by Garrett Chang MD at ENDOSCOPY [facility] EGD, FLEXIBLE, DIAGNOSTIC 04/19/2022 esophagitis, repeat 8-12 wks / [facility] EGD, FLEXIBLE, DIAGNOSTIC 06/26/2022 normal, retained food / [facility] EXPLORATION OF MAXILLARY SINUS 03/17/1995 Sinus Surgery HYSTEROSCOPY,DIAGNOSTIC 2022 atrophic endometrium, endometrial polyp INJECTION LUMBAR/SACRAL 07/31/2015 INJECTION SPINE LUMBAR OR SACRAL performed by Quincy Prado DO at OR [facility] INJECTION LUMBAR/SACRAL 08/15/2015 INJECTION SPINE LUMBAR OR SACRAL performed by Quincy Prado DO at OR [facility] INSER MARLI CAT,W/O PUMP;5YR/OLD N/A 11/04/2019 INSERT TUNNELED CENTRAL VENOUS CATHETER AGE 5 OR OLDER performed by Ortega Montez DO at OR [facility] INSER MARLI CAT,W/O PUMP;5YR/OLD Right 03/09/2023 INSERT TUNNELED CENTRAL VENOUS CATHETER AGE 5 OR OLDER performed by Fred Brown MD at OR [facility] INTRO CATH DIALYSIS CIRCUIT W/TRANSLUM BALLOON ANGIOPLASTY Right 03/09/2023 AV FISTULOGRAM & PERIPHERAL ANGIOPLASTY performed by Fred Brown MD at OR [facility] LIGATE/CUT OVIDUCT(S) MISCELLANEOUS ORDER ([facility] ONLY) Bilateral Heel surgery MISCELLANEOUS ORDER ([facility] ONLY) Right 3rd toe nerve decompression, Dr. Del Real [place] COLSC FLX W/RMVL OF TUMOR POLYP LESION SNARE TQ 09/20/2022 7 mm serrated polyp descending colon Social History/Disposition Lives with: Spouse (03/11/231121) Assistance available: Yes (03/11/231121) Dwelling type: Single story home (03/11/231121) Entry steps: None (03/11/231121) Inside steps: None (03/11/231121) Bedroom location: 1st floor (03/11/231121) Bath location: 1st floor full bath (03/11/231121) Prior Level of Function Reported by: Patient (03/11/231121) Ambulation: Non-ambulatory with electric wheelchair;Transfer via (03/11/231121) Transfer Via: Pino lift (03/11/231121) Grooming: Independent (03/11/231121) Bathing: Assistance (03/11/231121) Dressing: Assistance (03/11/231121) Feeding: Independent (03/11/231121) Toileting: Assistance (03/11/231121) Observations Consciousness: Alert (03/11/231121) Orientation: Oriented times 4 (03/11/231121) Psychosocial: Patient can communicate basic needs;Patient can converse in a social setting (03/11/231121) Safety awareness: The Patient verbalizes insight of current deficits. (03/11/231121) Pain: Patient has no complaints of pain Current Functional Status: UE Strength/ROM: BUE are WFL and 3+/5 throughout Self Care Able to provide self care: Yes (03/11/231121) Patient and or Family Goal(s): None Alarm Status Patient positioned in: Bed (03/11/231121) With: Bed alarm intact and functioning and call reina in reach (03/11/231121) Treatment Provided: Evaluation Moderate Complexity 10 minutes - 00813 Patient Education Education Topic: Role of OT (03/11/231121) Review of Precautions: Safety;Fall (03/11/231121) Method of Education: Verbalized to patient (03/11/231121) Education Provided to: Patient (03/11/231121) Response to Education: Receptive and agreeable to education (03/11/231121) Barriers to learning: Medical status (03/11/231121) Preferred learning method: Combination (03/11/231121) Method of Education: Verbal discussion and explanation provided to patient: verbalized understanding and or agreement of this information Assessment: Patient is a 77 year old female admitted on 03/09/23 with fistula malfunction. She was previously living at home and was assisted PRN for all ADLs and using wheelchair/pino lift for mobility. On exam, patient presents with weakness throughout BUE. Patient is not a good candidate for skilled OT services at this time due to poor baseline function/using pino for transfers. AM-PAC Help From Another Person Eating Meals: A little (03/11/231121) Help From Another Person Taking Care of Personal Grooming: A little (03/11/231121) Help From Another Person To Put On/Take Off Upper Body Clothing: Total (03/11/231121) Help From Another Person To Put On/Take Off Lower Body Clothing: Total (03/11/231121) Help From Another Person Toileting: Total (03/11/231121) Help From Another Person Bathing: A lot (03/11/231121) OT AM-PAC Score: 11 (03/11/231121) OT AM-PAC t-Scale Score: 29.04 (03/11/231121) HLM (Highest Level of Mobility) Goal: Level 2 bed activities/dependent transfer (03/11/231121) A portion of this AM-PAC assessment not scored based on functional assessment; rather clinical decision making was utilized based on current findings and/or prior level of function. Please refer to future AM-PAC calculations of functional ability as they become available. Treatment Plan: Discontinue Occupational Therapy services Goal Time Frame:N/A * aMrcella Schuler PT - 03/11/2023 11:22 AM ESTAssociated Order(s): ADULT PHYSICAL THERAPY CONSULT IP GENERAL EVALUATION - Physical Therapy [address] [place] [id number] Name: Kami French [place] [facility] H874/[id number] Date: 03/11/2023 Time: 1121 Kami French is a/an 77 year old female. Patient Status: Inpatient Insurance: Payor: [employer] Plan: [employer] CLASSIC 1 PART D MC-LD Product Type: *No Product type* Payor: [employer] PA Plan: [employer] [facility] Product Type: HMO Patient Seen: at bedside, nursing cleared patient for therapy Patient Identified By: Name, ID Band and Date Diagnosis: dialysis AV fistula malfunction (03/11/231121) Status of treatment: Discontinue services on evaluation (03/11/231121) Orders: PT evaluation and treatment;OOB (03/11/231121) Weight Bearing Status: Weight bearing as tolerated (03/11/23 112) Precautions: Alarms;Falls;Safety;Oxygen (03/11/231121) Total Treatment Time--free text: 8 (03/11/231121) Past Medical History: Past Medical History: Diagnosis Date (HFpEF) heart failure with preserved ejection fraction (HCC) Acute on chronic diastolic (congestive) heart failure (HCC) 03/04/2020 [facility] Allergic rhinitis 02/15/2000 acute BMI 38.0-38.9,adult 08/28/2009 Chronic Sinusitis Unspecified Controlled substance agreement signed 11/25/2016 COVID-19 10/23/2021 Cystitis 05/23/2022 admitted [facility] home on cefuroxime Dyslipidemia, goal LDL below [...] 2 diabetes mellitus with autonomic dysfunction (HCC) Past Surgical History: Past Surgical History: Procedure Laterality Date ARTHROPLASTY KNEE TOTAL Left Dr. Del Real CARPAL TUNNEL SURGERY Bilateral COLONOSCOPY, DIAGNOSTIC (RECTUM) 11/27/2015 normal, repeat 10 yrs/COLONOSCOPY FLEXIBLE PROXIMAL DIAGNOSTIC performed by Garrett Chang MD at ENDOSCOPY [facility] EGD, FLEXIBLE, DIAGNOSTIC 04/19/2022 esophagitis, repeat 8-12 wks / [facility] EGD, FLEXIBLE, DIAGNOSTIC 06/26/2022 normal, retained food / [facility] EXPLORATION OF MAXILLARY SINUS 03/17/1995 Sinus Surgery HYSTEROSCOPY,DIAGNOSTIC 2022 atrophic endometrium, endometrial polyp INJECTION LUMBAR/SACRAL 07/31/2015 INJECTION SPINE LUMBAR OR SACRAL performed by Quincy Prado DO at OR [facility] INJECTION LUMBAR/SACRAL 08/15/2015 INJECTION SPINE LUMBAR OR SACRAL performed by Quincy Prado DO at OR [facility] INSER MARLI CAT,W/O PUMP;5YR/OLD N/A 11/04/2019 INSERT TUNNELED CENTRAL VENOUS CATHETER AGE 5 OR OLDER performed by Ortega Montez DO at OR [facility] LIGATE/CUT OVIDUCT(S) MISCELLANEOUS ORDER ([facility] ONLY) Bilateral Heel surgery MISCELLANEOUS ORDER ([facility] ONLY) Right 3rd toe nerve decompression, Dr. Del Real [place] COLSC FLX W/RMVL OF TUMOR POLYP LESION SNARE TQ 09/20/2022 7 mm serrated polyp descending colon Subjective: Patient resting in bed, agrees to PT evaluation Social History/Disposition Lives with: Spouse (03/11/231121) Assistance available: Yes (03/11/231121) Dwelling type: Single story home (03/11/231121) Entry steps: None (03/11/231121) Inside steps: None (03/11/231121) Bedroom location: 1st floor (03/11/231121) Bath location: 1st floor full bath (03/11/231121) Prior Level of Function Reported by: Patient (03/11/231121) Ambulation: Non-ambulatory with electric wheelchair;Transfer via (03/11/231121) Transfer Via: (ceiling lift) (03/11/231121) Devices at home: (ceiling lift, electric wheelchair) (03/11/231121) Observations Consciousness: Alert (03/11/231121) Orientation: Person (others not tested) (03/11/231121) Psychosocial: Patient can communicate basic needs (03/11/231121) Other Findings: Yes (03/11/231121) Findings: Light touch sensation (03/11/231121) Light Touch Sensation Results: Intact;LLE;RLE (03/11/231121) Pain: No complaints of pain Range of Motion Range of Motion: WFL (03/11/231121) Strength Assessment Strength Assessment: Deficits noted (03/11/231121) WNL, except: LLE;RLE (03/11/231121) LLE: Hip;Knee;Ankle;2+/5 (03/11/231121) RLE: Hip;Knee;Ankle;2+/5 (03/11/231121) Patient and or Family Goal(s): to return home Patient Education Review of Precautions: Safety (role of PT) (03/11/231121) Safety Awareness: Patient verbalizes insight of current deficits (03/11/231121) Preferred learning method: Combination (03/11/231121) Barriers to learning: Medical Status (03/11/231121) Method of Education: Verbalized to patient (03/11/231121) Topic of Education: Safety with mobility and Goals/plan of care Method of Education: Verbal discussion and explanation provided to patient: verbalized understanding and or agreement of this information Treatment Provided: Evaluation Moderate Complexity 8 minutes - [id number]: Patient was cooperative and pleasant during treatment session. Moderate complexity evaluation performed and 1-2 personal factors or comorbidities were identified that will impact plan of care, including history of COPD and history of CVA. Alarm Status Patient positioned in: Bed (03/11/231121) With: Bed alarm intact and functioning and call reina in reach (03/11/231121) Treatment Status: Treatment at bedside (03/11/231121) Assessment: Patient is 77 y/o female with dx dialysis AV fistula malfunction. Prior to admission, patient lives with spouse and was dependent for mobility, suing ceiling lift and electric wheelchair.Patient not a good candidate for skilled PT services as they are dependent at baseline. No further PT services warranted. Please reconsult if needs change. Equipment Needs: Equipment needs: (tbd) (03/11/23 1122) Treatment Plan: Discontinue from Physical Therapy Services AM PAC Score with Stairs: 6 A portion of this AM-PAC assessment not scored based on functional assessment; rather clinical decision making utilized based on current findings and/or prior level of function. Please refer to future AM-PAC calculations of functional ability as they become available. * Inga Parmar MD - 03/09/2023 3:10 PM ESTAssociated Order(s): NEPHROLOGY CONSULT IP Images from the original note were not included. CONSULT - Nephrology [facility] [place] [address] Name: Kami French Location: [place] [facility] [place] Date: 03/09/2023 Time: 3:10 PM Hospital Day: 0 Reason for Consult: ESRD on HD HPI: Kami French is a 77 year old female with past history notable for ESRD on TTS schedule via RUE AVF at [facility], HTN, T2DM, Dementia, Rheumatoid arthritis, Parkinson syndrome, hypothyroidism HLD, obesity, RENÉ, GERD, COPD, CHF with history of CVA and significant hearing problemswas admitted to the hospital on 03/09/2023 transfer from [facility] where shepresented with AVF dysfunction and was transferred to [facility] for fistulagram and TDC placement. Seen and examined at bedside. Unable to listen and communicate properly due to her significant hearing problems. Hx gathered from review of her charts and discussion with primary team. Pertinent positives and negatives as documented in the HPI. All other systems are negative. PMH/PSH/FH/SH: reviewed Past Medical History: Diagnosis Date (HFpEF) heart failure with preserved ejection fraction (HCC) Acute on chronic diastolic (congestive) heart failure (HCC) 03/04/2020 [facility] Allergic rhinitis 02/15/2000 acute BMI 38.0-38.9,adult 08/28/2009 Chronic Sinusitis Unspecified Controlled substance agreement signed 11/25/2016 COVID-19 10/23/2021 Cystitis 05/23/2022 admitted [facility] home on cefuroxime Dyslipidemia, goal LDL below [...] 2 diabetes mellitus with autonomic dysfunction (HCC) Past Surgical History: Procedure Laterality Date ARTHROPLASTY KNEE TOTAL Left Dr. Del Real CARPAL TUNNEL SURGERY Bilateral COLONOSCOPY, DIAGNOSTIC (RECTUM) 11/27/2015 normal, repeat 10 yrs/COLONOSCOPY FLEXIBLE PROXIMAL DIAGNOSTIC performed by Garrett Chang MD at ENDOSCOPY [facility] EGD, FLEXIBLE, DIAGNOSTIC 04/19/2022 esophagitis, repeat 8-12 wks / [facility] EGD, FLEXIBLE, DIAGNOSTIC 06/26/2022 normal, retained food / [facility] EXPLORATION OF MAXILLARY SINUS 03/17/1995 Sinus Surgery HYSTEROSCOPY,DIAGNOSTIC 2022 atrophic endometrium, endometrial polyp INJECTION LUMBAR/SACRAL 07/31/2015 INJECTION SPINE LUMBAR OR SACRAL performed by Quincy Traceys, DO at OR [facility] INJECTION LUMBAR/SACRAL 08/15/2015 INJECTION SPINE LUMBAR OR SACRAL performed by Quincy Skeltonsins, DO at OR [facility] INSER MARLI CAT,W/O PUMP;5YR/OLD N/A 11/04/2019 INSERT TUNNELED CENTRAL VENOUS CATHETER AGE 5 OR OLDER performed by Ortega Montez DO at OR [facility] LIGATE/CUT OVIDUCT(S) MISCELLANEOUS ORDER ([facility] ONLY) Bilateral Heel surgery MISCELLANEOUS ORDER ([facility] ONLY) Right 3rd toe nerve decompression, Dr. Del Real [place] COLSC FLX W/RMVL OF TUMOR POLYP LESION SNARE TQ 09/20/2022 7 mm serrated polyp descending colon Allergies: reviewed Current medication list reviewed. Current Facility-Administered Medications Medication Dose Route Frequency Provider Acetaminophen (Tylenol) tab 650 mg 650 mg Oral Q6H PRN Edgar Adbi CRNP Albuterol Sulfate (Proventil) (2.5 MG/3ML) 0.083% inhalation solution 2.5 mg 2.5 mg Nebulizer Q4H PRN Vidhi Laguerre MD aspirin enteric coated tab 162 mg 162 mg Oral Daily(AM) Edgar Abdi CRNP atorvaSTATin (Lipitor) tab 80 mg 80 mg Oral Q 1700 Edgar Abdi CRNP carbidopa-levodopa 25-100 mg per tab (Sinemet) 1 Tablet 1 Tablet Oral TID(AM/NOON/HS) Edgar Abdi CRNP cefTRIAXone in dextrose (Rocephin) IVPB 1 g 1 g IV Piggyback Q24H Edgar Abdi CRNP dextrose 50 % inj 25 mL 25 mL IV Push PRN Edgar Abdi CRNP dextrose 50 % inj 50 mL 50 mL IV Push PRN Edgar Abdi CRNP Docusate Sodium (Colace) cap 100 mg 100 mg Oral Daily PRN Edgar Abdi CRNP fluticasone furoate-vilanterol (BREO ellipta) 200-25 MCG/ACT inhaler 1 Puff 1 Puff Inhalation Resp Daily Edgar Abdi CRNP glucagon (Glucagen) inj 1 mg 1 mg Intramuscular PRN Edgar Abdi CRNP Glucose (Glutose 15) 40 % gel 15 g of glucose 15 g of glucose Oral PRN Edgar Abdi CRNP Glucose (Glutose 15) 40 % gel 30 g of glucose 30 g of glucose Oral PRN Edgar Abdi CRNP glucose chew tab 16 g 16 g Oral PRN Edgar Abdi CRNP guaiFENesin-dm (Robitussin DM) oral syrup 10 mL 10 mL Oral Q4H PRN Edgar Abdi CRNP [START ON 03/10/2023] hEParin inj 7,500 Units 7,500 Units Subcutaneous Q12H Egdar Abdi CRNP house antacid (Mi-Acid II) oral susp 15 mL 15 mL Oral Q4H PRN Edgar Abdi CRNP insulin aspart (NovoLOG) inj Subcutaneous With Meals and HS Edgar Abdi CRNP isosorbide mononitrate SA (Imdur) tab 30 mg 30 mg Oral Daily(AM) Edgar Abdi CRNP Levothyroxine Sodium (Levoxyl) tab 125 mcg 125 mcg Oral Daily 0630 Edgar Adbi CRNP melatonin tab 10 mg 10 mg Oral QHS Edgar Abdi CRNP omeprazole (PriLOSEC) cap 20 mg 20 mg Oral Daily(AM) Edgar Abdi CRNP ondansetron (Zofran) inj 4 mg 4 mg IV Push Q6H PRN Edgar Abdi CRNP Pregabalin (Lyrica) cap 100 mg 100 mg Oral BID(AM/PM) Edgar Abdi CRNP sertraline (Zoloft) tab 100 mg 100 mg Oral Daily(AM) Edgar Abdi CRNP sodium chloride 0.9 % flush/inj 3 mL 3 mL IV Push PRN Edgar Abdi CRNP Physical Examination Most Recent Vital Signs: BP: 106 mmHg/42 mmHg (03/09/23 1502) Pulse: 63 (03/09/23 1502) Temp: 36.28 C (03/09/23 1502) Resp: 23 (03/09/23 1502) SpO2: 86 % (03/09/23 1502) Vital Signs last 24 Hours: Systolic BP: Most Recent Systolic BP Av.1 mmHg Min: 103 mmHg Max: 123 mmHg Temperature: Most Recent Temperature Av.7 C Min: 36.28 C Max: 37.06 C Pulse: Pulse Av.3 Min: 56 Max: 73 Respirations: Resp Av.7 Min: 14 Max: 23 SpO2: SpO2 Av.9 % Min: 86 % Max: 99 % Body mass index is 42.43 kg/m. Intake/Output Summary (Last 24 hours) at 03/09/2023 1510 Last data filed at 03/09/2023 1501 Gross per 24 hour Intake 530 ml Output -- Net 530 ml General: No acute distress. HEENT: Normocephalic, atraumatic. EOM intact. Moist mucosa. Neck: Trachea is midline. No JVD appreciable. Cardiovascular: RRR. No murmurs. No palpable thrill. Pulmonary: Normal respiratory pattern. Clear to auscultation bilaterally. Abdomen: Soft, non-tender, non-distended. No masses. Bowel sounds present. Extremities: No pedal edema noted. Skin: Warm, with normal turgor. No rashes. Neuro: Alert, oriented x 3. No focal deficits. Hearing problems. Dialysis access: RUE AVF with good thrill. Labs reviewed as indicated below: Lab results within last 7 days (see chart for full results) Units 03/09/23 1049 Sodium mmol/L 142 Potassium mmol/L 3.8 Chloride mmol/L 101 CO2 mmol/L 23 BUN mg/dL 46* Creatinine mg/dL 10.2* Lab results within last 7 days (see chart for full results) Units 03/09/23 1049 03/09/23 0604 HGB g/dL 9.5* 9.9* HCT % 31.6* 34.6* WBC K/uL 8.26 7.59 PLT K/uL 273 284 Lab results within last 7 days (see chart for full results) Units 03/09/23 1049 Calcium mg/dL 9.0 Magnesium mg/dL 2.4 Recent Cultures (2 Weeks) 10/13/2019 04/28/2019 04/25/2019 04/20/2019 12/03/2018 10/06/2015 09/29/2015 2015 1:10 PM 8:00 AM 6:04 PM 8:09 PM 4:05 PM 1:37 PM 2:25 PM 4:22 PM SPECIMEN DESCRIPTION URINE CATHETERIZED URINE CLEAN CATCH URINE CLEAN CATCH URINE SYNOVIAL FLUID LEFT KNEE CLEAN CATCH URINE URINE CLEAN CATCH URINE SYNOVIAL FLUID LEFT KNEE CULTURE LESS THAN 100 COLONIES/ML (NO GROWTH) >100,000 COLONIES/ML PROTEUS MIRABILIS LESS THAN 10,000 COLONIES/ML NORMAL JALEN ONE COLONY TYPE LESS THAN 10,000 COLONIES/ML NORMAL JALEN ONE COLONY TYPE NO FUNGUS ISOLATED LESS THAN 10,000 COLONIES/ML MIXED JALEN MULTIPLE JALEN SUGGESTS CONTAMINATION OR COLONIZATION 10,000 TO 100,000 COLONIES/ML ESCHERICHIA COLI NO GROWTH LESS THAN 10,000 COLONIES/ML MIXED JALEN Pertinent Imaging :personally reviewed images No imaging results in the last 24 hours Impression: # ESRD on TTS schedule via RUE AVF at [facility]- last two sessions. # AVF dysfunction s/p angioplasty today. # s/p RIJ TDC placement today. # Volume status: Clinically euvolemic. # Electrolytes: Within normal limits. # Acid base status: Acceptable. # Anemia # MBD Recommendations # No acute indication of HD today. Will dialyze tomorrow. # BP soft. Aim to keep MAP above 65 mmHg. # Adjust meds according to Hemodialysis. # PRBC transfusion if HGB < 7 g/dl. # Rest of the management as per primary team. I appreciate the opportunity of participating in Ms. French's care. I have discussed the assessment and management plan with Dr. Matson, the attending physician and communicated to the primary team. Inga Parmar MD Fellow Nephrology [facility] Associated attestation - Akanksha Matson MD - 03/09/2023 6:44 PM EST I have discussed the patient's management with the fellow and agree with the note. Please refer to the documented findings and plan of care. The patient's service consisted of an evaluation. I have seen and evaluated the patient.s/p RUE fistulagram and TDC placement. No urgent requirement for dialysis today, will do HD tomorrow. * Ciro Herrera MD - 03/09/2023 8:05 AM ESTAssociated Order(s): VASCULAR SURGERY CONSULT IP Consult - Vascular Surgery [facility] [place] [id number] Name: Kami French Location: [facility] [place] H874/[id number] Date: 03/09/2023 Time: 8:06 AM Date of Service: 03/09/2023 8:06 AM Requesting Service/Physician: Med S Chief Complaint: No chief complaint on file. Reason for consult: Unable to cannulate RUE fistula HPI: 77 year old female with DM, dementia, rheumatoid arthritis, Parkinson syndrome, HTN, ESRD on TTS, hypothyroidism HLD, obesity, RENÉ, GERD, COPD, CHF with history of CVA and OH. presents to the hospital as a transfer from [facility] due to inability to cannulate RUE AVF. Unclear at this point when th patient's last full HD session was completed. Vascular surgery was consulted for further evaluation. Prior to Admission medications Medication Sig Last Dose Discont. Hydrocortisone Acetate 25 MG Rectal Suppository (Anusol HC) Administer 1 Suppository into the rectum at bedtime. Pregabalin 100 MG Oral Capsule (Lyrica) Take 1 capsule by mouth twice daily. May take 1 extra capsule after dialysis. Erythromycin 5 MG/GM Ophthalmic Ointment apply 1 application into the eye(s) four times daily for 7days Isosorbide Mononitrate ER 30 MG Oral Tablet Extended Release 24 Hour (Imdur) TAKE 1 TABLET BY MOUTHDAILY Hydrocortisone (Perianal) 2.5 % External Cream (Procto-Med HC) ADMINISTER INTO RECTUM OR APPLY TO EXTERNAL HEMORRHOIDS ONCE DAILY Pantoprazole Sodium 20 MG Oral Tablet Delayed Release (Protonix) Take 1 Tablet by mouth in the morning and 1 Tablet in the evening. Lidocaine-Prilocaine 2.5-2.5 % External Cream (Emla) APPLY SMALL AMOUNT TO ACCESS SITE (AVF) 1 TO 2HOURS BEFORE DIALYSIS. COVER WITH OCCLUSIVE DRESSING (SARAN WRAP) Nystatin 778817 UNIT/GM External Powder (Nystop) Apply topically to affected area 2 times a day. Carbidopa-Levodopa 25-100 MG Oral Tablet (Sinemet) TAKE ONE TABLET BY MOUTH THREE TIMES A DAY WITH MEALS Mupirocin 2 % External Ointment (Bactroban) apply one application externally twice daily Atorvastatin Calcium 80 MG Oral Tablet (Lipitor) TAKE 1 TABLET BY MOUTH DAILY. Levothyroxine Sodium 125 MCG Oral Tablet (Levoxyl) TAKE 1 TABLET BY MOUTH DAILY AT LEAST 30 MINUTESPRIOR TO FIRST MEAL OF THE DAY OR OTHER MEDICATIONS. Sertraline HCl 100 MG Oral Tablet (Zoloft) TAKE ONE TABLET BY MOUTH IN THE MORNING Docusate Sodium 100 MG Oral Capsule (Colace) TAKE ONE CAPSULE BY MOUTH IN THE MORNING AND ONE CAPSULE BEFORE BEDTIME Auryxia 1 GM 210 MG(Fe) Oral Tablet TAKE 1 TABLET BY MOUTH THREE TIMES A DAY WITH MEALS. SWALLOW WHOLE, DO NOT CHEW OR CRUSH MEDICATION Nanci-Samuel Oral Tablet Take 1 Tablet by mouth in the morning. Breo Ellipta 200-25 MCG/INH Inhalation Aerosol Powder Breath Activated (fluticasone furoate-vilanterol) Inhale by mouth 1 Puff in the morning. Meclizine HCl 12.5 MG Oral Tablet (ANTIVERT) Take 1 Tablet by mouth 3 times a day as needed. Coloplast Paste Use to hemorrhoids 1-2 times per day Aspirin 81 MG Oral Tablet Delayed Release Take 2 Tablets by mouth in the morning. EPINEPHrine, Anaphylaxis, 1 MG/ML SOLN Inject 0.3 mL as directed as needed for Anaphylaxis (severe allergic reaction). Cholecalciferol (VITAMIN D3) 125 MCG (5000 UT) Tablet Take 1 Capsule by mouth in the morning. acetaminophen (TYLENOL) 325 MG Tablet Take 2 Tabs by mouth every 6 hours as needed for Pain. DIURETIC TITRATION PLAN If no improvement on day 3, contact heart failure managing provider. Melatonin 10 MG Tablet Take 1 Tablet by mouth every night at bedtime. DIURETIC TITRATION PLAN If no improvement on day 3, contact heart failure managing provider. Nebulizers (NEBULIZER COMPRESSOR) MISC Inhale via nebulizer. Use as directed. Glucose Blood (ONETOUCH ULTRA BLUE) STRP Use as directed 4 times a day as needed (Diabetes). 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 Hypothyroidism due to acquired atrophy of thyroid E03.4 Steatohepatitis, non-alcoholic K75.81 Obesity E66.9 Type 2 diabetes mellitus with hemoglobin A1c goal of less than 7.0% (HCC) E11.9 Restless leg syndrome G25.81 Dyslipidemia, goal LDL below 100 E78.5 AYSHA (generalized anxiety disorder) F41.1 RENÉ on CPAP G47.33 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 factor (HCC) M05.741, M05.742 Primary parkinsonism G20.C History of non-ST elevation myocardial infarction (NSTEMI) I25.2 Venous stasis dermatitis of both lower extremities I87.2 COPD, group B, by GOLD 2017 classification ([facility]) J44.9 Chronic heart failure with preserved ejection fraction ([facility]) I50.32 Mild neurocognitive disorder G31.84 Iron deficiency anemia due to chronic blood loss D50.0 Type 2 diabetes mellitus with diabetic dermatitis, without long-term current use of insulin ([facility]) E11.620 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 ([facility]) I13.2, I50.40, Z99.2, N18.6 Diabetes mellitus with ESRD (end-stage renal disease) ([facility]) E11.22, N18.6 Personal history of fall Z91.81 BMI 38.0-38.9,adult Z68.38 Dependence on renal dialysis ([facility]) Z99.2 History of CVA (cerebrovascular accident) Z86.73 AVF (arteriovenous fistula) ([facility]) 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[facility]) G20.A1, F02.80 Palliative care encounter Z51.5 Acquired hypothyroidism E03.9 Serrated polyp of colon K63.5 Problem with dialysis access ([facility]) T82.898A UTI (urinary tract infection) N39.0 Past Medical History: Diagnosis Date (HFpEF) heart failure with preserved ejection fraction ([facility]) Acute on chronic diastolic (congestive) heart failure ([facility]) 03/04/2020 [facility] Allergic rhinitis 02/15/2000 acute BMI 38.0-38.9,adult 08/28/2009 Chronic Sinusitis Unspecified Controlled substance agreement signed 11/25/2016 COVID-19 10/23/2021 Cystitis 05/23/2022 admitted [facility] home on cefuroxime Dyslipidemia, goal LDL below 100 Esophagitis determined by biopsy 04/19/2022 LA grade B esophagitis, inflammation gastric antrum, body and duodenum AYSHA (generalized anxiety disorder) Hearing loss, sensorineural 01/2005 History of non-ST elevation myocardial infarction (NSTEMI) 08/24/2018 HTN (hypertension) Meniere's disease Multiple falls 04/20/2019 History of falls on the pl NSTEMI (non-ST elevated myocardial infarction) ([facility]) 09/03/2018 Parkinson disease Rectal bleeding Restless leg syndrome 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 factor ([facility]) 07/18/2016 SDH (subdural hematoma) ([facility]) 04/20/2019 acute Serrated polyp of colon 09/20/2022 7 mm descending colon Sleep apnea Tinnitus 01/2005 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 (HCC) Past Surgical History: Procedure Laterality Date ARTHROPLASTY KNEE TOTAL Left Dr. Del Real CARPAL TUNNEL SURGERY Bilateral COLONOSCOPY, DIAGNOSTIC (RECTUM) 11/27/2015 normal, repeat 10 yrs/COLONOSCOPY FLEXIBLE PROXIMAL DIAGNOSTIC performed by Garrett Chang MD at ENDOSCOPY [facility] EGD, FLEXIBLE, DIAGNOSTIC 04/19/2022 esophagitis, repeat 8-12 wks / [facility] EGD, FLEXIBLE, DIAGNOSTIC 06/26/2022 normal, retained food / [facility] EXPLORATION OF MAXILLARY SINUS 03/17/1995 Sinus Surgery HYSTEROSCOPY,DIAGNOSTIC 2022 atrophic endometrium, endometrial polyp INJECTION LUMBAR/SACRAL 07/31/2015 INJECTION SPINE LUMBAR OR SACRAL performed by Quincy Prado DO at OR [facility] INJECTION LUMBAR/SACRAL 08/15/2015 INJECTION SPINE LUMBAR OR SACRAL performed by Quincy Prado DO at OR [facility] INSER MARLI CAT,W/O PUMP;5YR/OLD N/A 11/04/2019 INSERT TUNNELED CENTRAL VENOUS CATHETER AGE 6 OR OLDER performed by Ortega Montez DO at OR [facility] LIGATE/CUT OVIDUCT(S) MISCELLANEOUS ORDER ([facility] ONLY) Bilateral Heel surgery MISCELLANEOUS ORDER ([facility] ONLY) Right 3rd toe nerve decompression, Dr. Del Real [place] COLSC FLX W/RMVL OF TUMOR POLYP LESION SNARE TQ 09/20/2022 7 mm serrated polyp descending colon Family History: family history includes Diabetes in her brother, father, sister, and sister; Heart Disorder in her father and sister; Hypertension in her father and mother; Musculo-skeletal Disorder in her mother; Neurological Disorder in her brother, sister, and sister. Social History: reports that she quit smoking about 33 years ago. Her smoking use included cigarettes. She has a 12.50 pack-year smoking history. She has never used smokeless tobacco. She reports that she does not drink alcohol and does not use drugs. COMPLETE REVIEW OF SYSTEMS: All others negative other than those noted in the HPI. GENERAL MULTI-SYSTEM PHYSICAL EXAM: Vital Signs: BP 122/63 | Pulse 65 | Temp 36.7 C (98 F) (Oral) | Resp 17 | Ht 1.575 m (5' 2") | Wt 105.2 kg (232 lb) | SpO2 96% | BMI 42.43 kg/m | BSA 2.15 m GENERAL: Normal grooming habits, no acute distress, and appears stated age NECK: No masses and Normal Thyroid RESPIRATORY: respiratory effort normal and breath sounds normal CARDIOVASCULAR: no heart murmurs, no edema, and no varicosities GASTROINTESTINAL: no tenderness and protuberant SKIN: no ulcers, no rash, no induration, capillary refill normal, and no dependent rubor PSYCHIATRIC: orientation to time, place and person normal and recent and remote memory normal EYES: conjunctivae normal, eye lids normal, pupils normal, and irises normal NEUROLOGIC: Cranial nerves intact, Motor function intact, and Sensory exam intact VASCULAR: Unable to palpate a thrill or pulse at RUE AVF LABS: Lab Results Component Value Date/Time WBC 7.59 03/09/2023 06:04 AM WBC 10.79 02/28/2020 04:45 PM HGB 9.9 (L) 03/09/2023 06:04 AM HGB 9.4 (A) 02/18/2023 12:00 AM HGB 7.9 (L) 02/28/2020 04:45 PM PLT 284 03/09/2023 06:04 AM PLT 334 02/28/2020 04:45 PM Lab Results Component Value Date/Time BUN 37 (H) 02/24/2023 01:13 PM BUN 109 (H) 10/27/2019 10:00 AM BUN 13 06/24/1996 04:55 PM CREAT 7.1 (H) 02/24/2023 01:13 PM CREAT 3.59 (A) 06/12/2021 12:00 AM CREAT 5.2 (H) 10/27/2019 10:00 AM GFRESTIMATED 7.6 (L) 10/27/2019 10:00 AM NA 141 02/24/2023 01:13 PM NA 145 10/27/2019 10:00 AM POTASSIUM 3.8 02/24/2023 01:13 PM POTASSIUM 3.9 06/12/2021 12:00 AM POTASSIUM 3.9 10/27/2019 10:00 AM POTASSIUM 4.3 06/24/1996 04:55 PM CL 100 02/24/2023 01:13 PM CL 97 (L) 10/27/2019 10:00 AM CO2 28 02/24/2023 01:13 PM CO2 25 10/27/2019 10:00 AM CA 9.4 02/24/2023 01:13 PM CA 7.5 (L) 10/27/2019 10:00 AM Lab Results Component Value Date/Time INR 0.9 08/15/2022 09:54 AM INR 0.8 08/10/2022 01:48 PM INR 1.05 04/20/2019 06:53 PM INR 0.98 07/13/2018 11:00 AM INR 2.6 10/21/2008 02:47 PM INR 2.9 09/23/2008 02:37 PM INR 2.6 08/19/2008 02:36 PM INR 1.54 (H) 03/11/2008 10:20 AM IMPRESSIONS: 77 yo female transferred from [facility] due to inability to cannulate RUE AVF. PLAN: - OR today for right upper extremity fistulagram and tunneled dialysis catheter placement - Remain NPO - Ok to use to TDC after placement today - Rest of care per primary team Ciro Herrera MD Vascular Surgery Fellow Associated attestation - Fred Brown MD - 03/09/2023 8:26 AM EST I saw and evaluated the patient today. I have reviewed the trainee note and agree. 77 year old female in need of dialysis Fistula not able to be accessed Will plan for TDC and fistulagram in OR this morning The patient was counseled at length regarding the nature of hemodialysis access procedures and the risks, benefits and alternatives of this surgery. The patient and I discussed that given enough time, all hemodialysis access will fail and will require periodic endovascular procedures and/or open surgery. I have discussed with the patient that they are at very high risk for the following anticipated complications due to the patient's co-morbidities including hemodialysis access thrombosis/malfunction/rupture, wound complications including nonhealing and wound infection, steal syndrome requiring additional procedures such as bypass surgery or arteriovenous access ligation, heart attack, respiratorycomplications, worsening kidney function requiring dialysis, nerve damage, bleeding or thrombosis requiring transfusion/re- operation, hemorrhage/thrombosis/aneurysm formation at the site of catheter i nsertion, clot or blockage of blood flow to the extremities, re-operation for limb ischemia, accessthrombosis or digit/hand/limb amputation. I have also explained to the patient that other risks of the procedure include, but are not limitedto, radiation injury, allergic reaction to the contrast, stroke, transfusion reaction, infection, or . The patient understands the seriousness of the situation and would like to proceed with theprocedure. The patient has had a thorough medical evaluation and management of symptoms as outlined above. Theplan is to proceed initially with angiography and then immediate intervention based upon the results. I plan on proceeding with an endovascular procedure as the only other alternative would be an invasive open surgical procedure (which the patient understands may still be required). If the lesion(s) are amenable to an endovascular approach, angioplasty will be performed first for appropriate lesions. Stenting will also be performed for lesions known to have a poor result from angioplasty alone and those lesions that demonstrate a poor result post angioplasty. I also discussed the possible need for placement of a dialysis catheter. I have discussed with the patient that they are at very high risk for the following anticipated complications due to the patient's co-morbidities including pneumothorax that may require a chest tube, air embolism, catheter clotting and replacement, catheter fracture, catheter malfunction, bleeding, catheter infection requiring removal or replacement or venous injury. The patient is also at anticipated high risk for future central vein stenosis or occlusion which can affect clotting of the catheter. Other complications related to a catheter discussed included pulmonary embolism, deep vein thrombosis requiring anticoagulation, , stroke, respiratory complications and radiation injury. The patient understands the seriousness of the situation and would like to proceed with surgery. All questions were answered, and informed consent was obtained. Will plan on additional dialysis access surgery to ensure continued functionality. Fred Brown MD Section of Vascular and Endovascular Surgery [place] [address] [phone] documented in this encounter Nursing Notes * Tommy Morales RN - 03/18/2023 11:32 AM EST POST ASSESSMENT COMMUNICATION NOTE - HEMODIALYSIS Attention to:Elizabeth Morejon Patient arriving via: Bed Time of Call: 11:33 AM Phone Ext.: [phone] Reason for SBAR handoff: Postdialysis treatment. Treatment: Prescribed treatment time: 3.5 Hours Duration of Treatment (minutes): 215 minutes (03/18/231119) Dialysis Treatment Less than Prescribed: NO Prescribed UF: 1-2L Dialysis: 2000 ml (03/18/23 1117) Reason prescribed UF was not achieved: Achieved Blood Returned: Yes Potassium Bath: Sliding scale only, Initial 3K+ 2.5 Ca for 95 minutes then the sliding scale adjustment to 2K+ 2.5 Ca for remainder of treatment. Post Dialysis Vitals: Temp: 35.8 C (96.4 F) (03/18/231119) Pulse: 49 (03/18/231119) Resp: 20 (03/18/231119) SpO2: 99 % (03/18/231119) O2 flow rate: 0 L/MIN (03/18/23 0716) Supplemental O2 Delivery: Room Air, None (03/18/231119) Pain Assessment Flowsheet Row Most Recent Value Pain Assessment Scale [facility] Adult Scale 0-10 Pain Score 0 (no pain) Pre BP Sittin/49 (03/18/23 0735) Post BP Sittin/44 (03/18/231119) Pre-Treatment Weight: 107.2 kg (236 lb 5.3 oz) (03/18/23 0735) Post-Treatment Weight: 105.1 kg (231 lb 11.3 oz) (03/18/231119) Treatment Weight Change (kg): -2.1 kg (03/18/231119) Medications administered, see MAR/flowsheets for further information: Venofer and Other: Heparin via dialysis machine Access: Dialysis catheter, RIJ (Right internal jugular)locked with Citrate Function: No problems Date/time to remove pressure dressing: N/A Dialysis Tx Tolerance: Tolerated well (03/18/231119) Patient educated on: N/A- chronic patient, education not required and Signs and symptoms to report to staff Additional patient needs/interventions during treatment: Labs drawn and BS rechecked 94 @1110 No bleeding from dialysis access. Dialysis catheter functioned normally, locked per order. Report called to Elizabeth Morejon. Patient transported to floor in stable condition. * Makenna Slaughter LPN - 03/18/2023 6:21 AM EST IP TO DIALYSIS HANDOFF COMMUNICATION NOTE Attention to: Nurse Patient arriving via: Bed Time of Call: 6:21 AM Phone Ext.: [phone] Reason for SBAR handoff: Predialysis treatment. Neuro Assessment: Neurological: Neurological WNL Neuro WNL: WNL - within normal limits (03/17/231999) Level of Consciousness: Alert (03/17/231999) Orientation Level: Oriented x4 (03/17/231999) Cognition: Appropriate for age (03/16/231929) Speech: Clear (03/17/231999) Facial Drooping: Face symmetrical (03/14/231999) Pupil Assessment: Yes (03/14/231999) Right Pupil Size (mm): 3 (03/17/23810) Right Pupil Shape/Description: PERRLA (03/14/231999) Right Pupil Reaction: Reactive (03/14/231999) Left Pupil Size (mm): 2 (03/17/23810) Left Pupil Shape/Description: PERRLA (03/14/231999) Left Pupil Reaction: Reactive (03/14/231999) Behaviors/Mood/Neuro Symptoms: Calm;Cooperative (03/17/231999) Hand Grasp/Motor Function/Sensation Assessment: Dorsiflexion;Grasp;Motor strength;Plantar flexion;Sensation (03/17/231999) Right Hand Grasp: Strong (03/17/231999) Left Hand Grasp: Strong (03/17/231999) Right Foot Dorsiflexion: Strong (03/17/231999) Left Foot Dorsiflexion: Strong (03/17/231999) Right Foot Plantar Flexion: Strong (03/17/231999) Left Foot Plantar Flexion: Strong (03/17/231999) Sensation: RUE sensation;LUE sensation;RLE sensation;LLE sensation (03/17/231999) RUE Sensation: Full sensation (03/17/231999) LUE Sensation: Full sensation (03/17/231999) RLE Sensation: Full sensation (03/17/231999) LLE Sensation: Full sensation (03/17/231999) Motor Strength: RUE motor strength;LUE motor strength;RLE motor strength;LLE motor strength (03/17/231999) RUE Motor Strength: 5-Active movement with full resistance (03/17/231999) LUE Motor Strength: 5-Active movement with full resistance (03/17/231999) RLE Motor Strength: 4-Active movement with some resistance (03/17/231999) LLE Motor Strength: 4-Active movement with some resistance (03/17/231999) Eldridge Coma Scale Eyes Open: Spontaneous (03/17/231999) Best Verbal Response: Verbally appropriate for age (03/17/231999) Best Motor Response: Obeys commands appropriate for age (03/17/231999) Coma Score: 15 (03/17/231999) Additional Neurological Information: N/A Assessment: BP: 102/39 (03/18/23547) Temp: 36.4 C (97.5 F) (03/18/23547) Pulse: 48 (03/18/23547) Resp: 18 (03/18/23547) SpO2: 98 % (03/18/23547) O2 flow rate: 2 L/MIN (03/17/232242) Supplemental O2 Delivery: Non-Invasive CPAP/BiPAP (03/17/232242) Pain Assessment Flowsheet Row Most Recent Value Pain Assessment Scale [facility] Adult Scale 0-10 Pain Score 0 (no pain) Room Air during the day Last dose of pain medication administered N/A time N/A Don Score: Don Score (auto-calculation): 15 (03/17/231999) Diabetic: Yes Last Blood Sugar: Glucose (Bedside): 121 (03/17/232099) Dialysis Access: right double lumen Continuous medications: N/a Labs needing collected: N/A @ N/A How does the patient take their medications: Whole Emotional/Personal Events and Special Needs: [place], hearing aids * Makeda Mireles RN - 03/15/2023 11:24 AM EST POST ASSESSMENT COMMUNICATION NOTE - HEMODIALYSIS Attention to: STEFFEN Atkins Patient arriving via: Bed Time of Call: 11:24 AM Phone Ext.: via TT Reason for SBAR handoff: Postdialysis treatment. Treatment: Prescribed treatment time: 3.5 hours Duration of Treatment (minutes): 210 minutes (03/15/23 1022) Dialysis Treatment Less than Prescribed: NO Prescribed UF: 1-2 L if tolerated Dialysis: 1000 ml (03/15/23 1030) Reason prescribed UF was not achieved: na Blood Returned: Yes Potassium Bath: As ordered for entire treatment, 3K+ 2.5 Ca Post Dialysis Vitals: Temp: 36.4 C (97.5 F) (03/15/23 1022) Pulse: 48 (03/15/23 1022) Resp: 16 (03/15/23 102) SpO2: 92 % (03/15/23 0300) O2 flow rate: 0 L/MIN (03/15/23 102) Supplemental O2 Delivery: Room Air, None (03/15/23 102) Pain Assessment Flowsheet Row Most Recent Value Pain Assessment Scale [facility] Adult Scale 0-10 Pain Score 0 (no pain) Pre BP Sittin/41 (03/15/23 0636) Post BP Sitting: (!) 91/39 (03/15/23 102) Pre-Treatment Weight: 107.1 kg (236 lb 1.8 oz) (03/15/23 0636) Post-Treatment Weight: 106 kg (233 lb 11 oz) (03/15/23 102) Treatment Weight Change (kg): -1.1 kg (03/15/231021) Medications administered, see MAR/flowsheets for further information: Venofer Access: Dialysis catheter, RIJ (Right internal jugular)locked with Citrate Function: No problems Date/time to remove pressure dressing: na@na Dialysis Tx Tolerance: Tolerated well (03/15/23 102) Intervention : UF- Restarted (03/13/23 0834) Patient educated on: N/A- chronic patient, education not required Additional patient needs/interventions during treatment: N/A Dialysis catheter functioned normally, locked per order. Report called to Milly via TT. Patient transported to floor in stable condition. * Tayla Cordova RN - 03/15/2023 6:15 AM EST IP TO DIALYSIS HANDOFF COMMUNICATION NOTE Attention to: Della Grayson Patient arriving via: Bed Time of Call: 6:20 AM Phone Ext.: [phone] Reason for SBAR handoff: Predialysis treatment. Neuro Assessment: Neurological: Neurological WNL Neuro WNL: WNL - within normal limits (03/14/231999) Level of Consciousness: Alert (03/14/231999) Orientation Level: Oriented x4 (03/14/231999) Cognition: Appropriate for age (03/14/231999) Speech: Clear (03/14/231999) Facial Drooping: Face symmetrical (03/14/231999) Pupil Assessment: Yes (03/14/231999) Right Pupil Size (mm): 3 (03/14/231999) Right Pupil Shape/Description: PERRLA (03/14/231999) Right Pupil Reaction: Reactive (03/14/231999) Left Pupil Size (mm): 3 (03/14/231999) Left Pupil Shape/Description: PERRLA (03/14/231999) Left Pupil Reaction: Reactive (03/14/231999) Behaviors/Mood/Neuro Symptoms: Calm;Cooperative (03/14/231999) Hand Grasp/Motor Function/Sensation Assessment: Grasp (03/14/231999) Right Hand Grasp: Moderate (03/14/231999) Left Hand Grasp: Moderate (03/14/231999) Right Foot Dorsiflexion: Moderate (03/14/231999) Left Foot Dorsiflexion: Moderate (03/14/231999) Right Foot Plantar Flexion: Moderate (03/14/231999) Left Foot Plantar Flexion: Moderate (03/14/231999) Sensation: RUE sensation;LUE sensation;LLE sensation;RLE sensation (03/14/231999) RUE Sensation: Full sensation (03/14/231999) LUE Sensation: Full sensation (03/14/231999) RLE Sensation: Full sensation (03/14/231999) LLE Sensation: Full sensation (03/14/231999) Motor Strength: RUE motor strength;LUE motor strength;RLE motor strength;LLE motor strength (03/14/231999) RUE Motor Strength: 5-Active movement with full resistance (03/14/231999) LUE Motor Strength: 5-Active movement with full resistance (03/14/231999) RLE Motor Strength: 3-Active movement against gravity (03/14/231999) LLE Motor Strength: 3-Active movement against gravity (03/14/231999) Eldridge Coma Scale Eyes Open: Spontaneous (03/14/231999) Best Verbal Response: Verbally appropriate for age (03/14/231999) Best Motor Response: Obeys commands appropriate for age (03/14/231999) Coma Score: 15 (03/14/231999) Additional Neurological Information: none Assessment: BP: 101/40 (03/15/23 0300) Temp: 36.6 C (97.8 F) (03/15/23299) Pulse: 50 (03/15/23299) Resp: 16 (03/14/231944) SpO2: 92 % (03/15/23299) O2 flow rate: 0 L/MIN (03/14/232251) Supplemental O2 Delivery: Room Air, None (CPAP removed) (03/15/23601) Pain Assessment Flowsheet Row Most Recent Value Pain Assessment Scale [facility] Adult Scale 0-10 Pain Score 0 (no pain) Last dose of pain medication administered na time na Don Score: Don Score (auto-calculation): 14 (03/15/23 0000) Diabetic: Yes Last Blood Sugar: 0624 120 Dialysis Access: R tunneled HD cath Continuous medications: na Labs needing collected: na How does the patient take their medications: Whole Emotional/Personal Events and Special Needs: [place] even with bl hearing aids * Makeda Mireles RN - 03/13/2023 11:20 AM EST POST ASSESSMENT COMMUNICATION NOTE - HEMODIALYSIS Attention to: STEFFEN Dick Patient arriving via: Bed Time of Call: 11:21 AM Phone Ext.: [phone] Reason for SBAR handoff: Postdialysis treatment. Treatment: Prescribed treatment time: 3.5 hours Duration of Treatment (minutes): 210 minutes (03/13/23 1108) Dialysis Treatment Less than Prescribed: NO Prescribed UF: 1-2L as tolerated Dialysis: 1700 ml (03/13/23 1100) Reason prescribed UF was not achieved: na Blood Returned: Yes Potassium Bath: As ordered for entire treatment, 3K+ 2.5 Ca Post Dialysis Vitals: Temp: 36.6 C (97.9 F) (03/13/231107) Pulse: 53 (03/13/231107) Resp: 18 (03/13/23726) SpO2: 92 % (03/13/23711) O2 flow rate: 0 L/MIN (03/13/23711) Supplemental O2 Delivery: Room Air, None (03/13/231107) Pain Assessment Flowsheet Row Most Recent Value Pain Assessment [facility] Adult Scale 0-10 Pain Score 0 (no pain) Pre BP Sittin/46 (03/13/23726) Post BP Sittin/47 (03/13/231107) Pre-Treatment Weight: 107.7 kg (237 lb 7 oz) (03/13/23726) Post-Treatment Weight: 106 kg (233 lb 11 oz) (03/13/231107) Treatment Weight Change (kg): -1.7 kg (03/13/231107) Medications administered, see MAR/flowsheets for further information: EPO (Erythropoietin), Venofer, and Blocked catheter with citrate/cath willie Access: Dialysis catheter, RIJ (Right internal jugular)locked with Citrate Function: No problems Date/time to remove pressure dressing: na@na Dialysis Tx Tolerance: Tolerated well (03/13/231107) Intervention : UF- Restarted (03/13/23833) Patient educated on: N/A- chronic patient, education not required Additional patient needs/interventions during treatment: N/A Dialysis catheter functioned normally, locked per order. Report called to Mayelin via TT . Patient transported to floor in stable condition. * Hardeep Carnes RN - 03/13/2023 6:50 AM EST IP TO DIALYSIS HANDOFF COMMUNICATION NOTE Attention to: Makeda Mireles Patient arriving via: Bed Time of Call: 6:51 AM Phone Ext.: [phone] Reason for SBAR handoff: Predialysis treatment. Neuro Assessment: Neurological: Neurological WNL Neuro WNL: WNL - within normal limits (03/12/231999) Level of Consciousness: Alert (03/12/23 0800) Orientation Level: Oriented x4 (03/12/23 0800) Cognition: Appropriate for age (03/12/23 08) Speech: Clear (03/12/23 08) Facial Drooping: Face symmetrical (03/11/231999) Pupil Assessment: Yes (03/11/231999) Right Pupil Size (mm): 3 (03/11/231999) Right Pupil Shape/Description: Round (03/11/231999) Right Pupil Reaction: Reactive (03/11/231999) Left Pupil Size (mm): 3 (03/11/231999) Left Pupil Shape/Description: Round (03/11/231999) Left Pupil Reaction: Reactive (03/11/231999) Behaviors/Mood/Neuro Symptoms: Calm (03/11/231999) Hand Grasp/Motor Function/Sensation Assessment: Grasp;Motor strength (03/10/232004) Right Hand Grasp: Strong (03/11/231999) Left Hand Grasp: Strong (03/11/231999) Right Foot Dorsiflexion: Moderate (03/11/231999) Left Foot Dorsiflexion: Moderate (03/11/231999) Right Foot Plantar Flexion: Moderate (03/11/231999) Left Foot Plantar Flexion: Moderate (03/11/231999) Sensation: RUE sensation;LUE sensation;RLE sensation;LLE sensation (03/09/23 0400) RUE Sensation: Full sensation (03/11/231999) LUE Sensation: Full sensation (03/11/231999) RLE Sensation: Full sensation (03/11/231999) LLE Sensation: Full sensation (03/11/231999) Motor Strength: RUE motor strength;LUE motor strength;RLE motor strength;LLE motor strength (03/10/232004) RUE Motor Strength: 5-Active movement with full resistance (03/12/231999) LUE Motor Strength: 5-Active movement with full resistance (03/12/231999) RLE Motor Strength: 4-Active movement with some resistance (03/12/231999) LLE Motor Strength: 4-Active movement with some resistance (03/12/231999) [place] Coma Scale Eyes Open: Spontaneous (03/12/231999) Best Verbal Response: Verbally appropriate for age (03/12/231999) Best Motor Response: Obeys commands appropriate for age (03/12/231999) Coma Score: 15 (03/12/231999) Additional Neurological Information: drowsy Assessment: BP: 117/49 (03/13/23247) Temp: 36.9 C (98.4 F) (03/13/23247) Pulse: 58 (03/12/230) Resp: 20 (03/13/23247) SpO2: 93 % (03/13/23247) O2 flow rate: 2 L/MIN (03/13/23247) Supplemental O2 Delivery: Room Air, None (03/13/23247) Pain Assessment Flowsheet Row Most Recent Value Pain Assessment Scale [facility] Adult Scale 0-10 Pain Score 0 (no pain) Last dose of pain medication administered n/a time n/a Don Score: Don Score (auto-calculation): 14 (03/12/231999) Diabetic: Yes Last Blood Sugar: Glucose (Bedside): 123 (03/12/232109) Dialysis Access: R chest port Continuous medications: na Labs needing collected: na @ na How does the patient take their medications: Whole Emotional/Personal Events and Special Needs: n a * Della Ronquillo RN - 03/11/2023 3:54 PM EST POST ASSESSMENT COMMUNICATION NOTE - HEMODIALYSIS Attention to: Gem Palma RN Patient arriving via: Bed Time of Call: 3:55 PM Phone Ext.: [phone] Reason for SBAR handoff: Postdialysis treatment. Treatment: Prescribed treatment time: 3.5 hrs Duration of Treatment (minutes): 214 minutes (03/11/23 154) Dialysis Treatment Less than Prescribed: NO Prescribed UF: 1-2L but changed to net even per Dr Sanches Dialysis: 0 ml (03/11/23 154) Reason prescribed UF was not achieved: asymptomatic hypotension Blood Returned: Yes Potassium Bath: As ordered for entire treatment, 3K+ 2.5 Ca Post Dialysis Vitals: Temp: 36.3 C (97.3 F) (03/11/23 154) Pulse: 44 (03/11/23 154) Resp: 22 (03/11/231542) SpO2: 93 % (03/11/23 110) O2 flow rate: 0 L/MIN (03/11/23 1101) Supplemental O2 Delivery: Room Air, None (03/11/231542) Pain Assessment Flowsheet Row Most Recent Value Pain Assessment Scale [facility] Adult Scale 0-10 Pain Score 0 (no pain) Pre BP Sittin/48 (03/11/23 1204) Post BP Sittin/43 (03/11/23 154) Pre-Treatment Weight: 106.7 kg (235 lb 3.7 oz) (03/11/23 1204) Post-Treatment Weight: 106.7 kg (235 lb 3.7 oz) (03/11/23 154) Treatment Weight Change (kg): 0 kg (03/11/231542) Medications administered, see MAR/flowsheets for further information: None Access: Dialysis catheter, RIJ (Right internal jugular)locked with Citrate Function: No problems Date/time to remove pressure dressing: NA Dialysis Tx Tolerance: Intradialytic hypotension (03/11/231542) Intervention : UF- Stopped;UF- Goal decreased;UF- Restarted (03/11/231542) Patient educated on: N/A- chronic patient, education not required Additional patient needs/interventions during treatment: N/A Dialysis catheter functioned normally, locked per order. Transported to floor in stable condition, no complaints of any headache, dizziness or lightheadedness. Dr Sanches aware of the trend of blood pressures, UF removal changed to net even. * Gem Palma RN - 03/11/2023 10:36 AM EST IP TO DIALYSIS HANDOFF COMMUNICATION NOTE Attention to: STEFFEN Xiong Patient arriving via: Bed Time of Call: 10:37 AM Phone Ext.: [phone] Reason for SBAR handoff: Predialysis treatment. Neuro Assessment: Neurological: Neurological WNL Neuro WNL: X - Exceptions to WNL as documented below (03/11/23 0800) Level of Consciousness: Alert (03/11/23 08) Orientation Level: Oriented x4 (03/11/23 08) Cognition: Appropriate for age (03/11/23 08) Speech: Clear (03/11/23 08) Pupil Assessment: Yes (03/09/23 0400) Right Pupil Size (mm): 3 (03/09/23 1230) Right Pupil Shape/Description: PERRLA (03/09/23 1230) Right Pupil Reaction: Reactive (03/09/23 1230) Left Pupil Size (mm): 3 (03/09/23 1230) Left Pupil Shape/Description: PERRLA (03/09/23 1230) Left Pupil Reaction: Reactive (03/09/23 1230) Behaviors/Mood/Neuro Symptoms: Calm;Cooperative (03/10/232004) Hand Grasp/Motor Function/Sensation Assessment: Grasp;Motor strength (03/10/232004) Right Hand Grasp: Strong (03/10/232004) Left Hand Grasp: Strong (03/10/232004) Right Foot Dorsiflexion: Moderate (03/11/23 08) Left Foot Dorsiflexion: Moderate (03/11/23 08) Right Foot Plantar Flexion: Moderate (03/11/23 0800) Left Foot Plantar Flexion: Moderate (03/11/23 08) Sensation: RUE sensation;LUE sensation;RLE sensation;LLE sensation (03/09/23 0400) RUE Sensation: Full sensation (03/09/23 0400) LUE Sensation: Full sensation (03/09/23 0400) RLE Sensation: Full sensation (03/09/23 0400) LLE Sensation: Full sensation (03/09/23 0400) Motor Strength: RUE motor strength;LUE motor strength;RLE motor strength;LLE motor strength (03/10/232004) RUE Motor Strength: 5-Active movement with full resistance (03/11/23 08) LUE Motor Strength: 5-Active movement with full resistance (03/11/23 08) RLE Motor Strength: 4-Active movement with some resistance (03/11/23 08) LLE Motor Strength: 4-Active movement with some resistance (03/11/23 08) Eldridge Coma Scale Eyes Open: Spontaneous (03/11/23799) Best Verbal Response: Verbally appropriate for age (03/11/23799) Best Motor Response: Obeys commands appropriate for age (03/11/23799) Coma Score: 15 (03/11/23799) Additional Neurological Information: none Assessment: BP: 102/47 (03/11/23747) Temp: 37 C (98.6 F) (03/11/23 0300) Pulse: 50 (03/11/23747) Resp: 16 (03/11/23747) SpO2: 94 % (03/11/23799) O2 flow rate: 3 L/MIN (03/11/23747) Supplemental O2 Delivery: Room Air, None (03/11/23799) Pain Assessment Flowsheet Row Most Recent Value Pain Assessment Scale [facility] Adult Scale 0-10 Pain Score 0 (no pain) Last dose of pain medication administered n/a Don Score: Don Score (auto-calculation): 14 (03/11/23799) Diabetic: Yes Last Blood Sugar: Glucose (Bedside): 101 (03/11/23 0643) Dialysis Access: left IJ Continuous medications: none Labs needing collected: none How does the patient take their medications: Whole Emotional/Personal Events and Special Needs: none * Laisha Patton NA - 03/09/2023 4:01 PM EST Post Anesthesia Care Unit Transport Note [place] [id number] Dept. Kami French Transported from [facility] to : [facility] Time: 1550 Care of patient transferred to: [place] Transported via: Bed Belongings with Patient: NO Pulse : 54 Temp : 98.2 BP : 97 41 Respirations : 14 Pulse Ox : 96 O2 : 3L NC SCDS: On but not activated/no machine * Jennifer Tilley RN - 03/09/2023 3:36 PM EST PERIOP TO IP HANDOFF COMMUNICATION NOTE [facility] [address] Name: Kami French AGE: [age] year old Location: OR [facility] Date: 03/09/2023 Attention to: Era Roca RN Report from: Jennifer Tilley RN Patient arriving via: Bed Time of call: 3:37 PM Phone Ext: [phone] Reason for SBAR (Situation, Background, Assessment, Recommendation) handoff: OR Sending to: [facility] 874-A Emotional/Personal Events & Special Needs: N/A Prescriptions in chart: No Code Status: Full Code Discussion of adv directives occurred with - adult: Patient Safety Concerns: no safety concerns identified Allergies: Patient has no known allergies. PMH: Past Medical History: Diagnosis Date (HFpEF) heart failure with preserved ejection fraction (HCC) Acute on chronic diastolic (congestive) heart failure ([facility]) 03/04/2020 [facility] Allergic rhinitis 02/15/2000 acute BMI 38.0-38.9,adult 08/28/2009 Chronic Sinusitis Unspecified Controlled substance agreement signed 11/25/2016 COVID-19 10/23/2021 Cystitis 05/23/2022 admitted [facility] home on cefuroxime Dyslipidemia, goal LDL below 100 Esophagitis determined by biopsy 04/19/2022 LA grade B esophagitis, inflammation gastric antrum, body and duodenum AYSHA (generalized anxiety disorder) Hearing loss, sensorineural 01/2005 History of non-ST elevation myocardial infarction (NSTEMI) 08/24/2018 HTN (hypertension) Meniere's disease Multiple falls 04/20/2019 History of falls on the pl NSTEMI (non-ST elevated myocardial infarction) ([facility]) 09/03/2018 Parkinson disease Rectal bleeding Restless leg syndrome 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 factor ([facility]) 07/18/2016 SDH (subdural hematoma) ([facility]) 04/20/2019 acute Serrated polyp of colon 09/20/2022 7 mm descending colon Sleep apnea Tinnitus 01/2005 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 ([facility]) PSH: Past Surgical History: Procedure Laterality Date ARTHROPLASTY KNEE TOTAL Left Dr. Del Real CARPAL TUNNEL SURGERY Bilateral COLONOSCOPY, DIAGNOSTIC (RECTUM) 11/27/2015 normal, repeat 10 yrs/COLONOSCOPY FLEXIBLE PROXIMAL DIAGNOSTIC performed by Garrett Chang MD at ENDOSCOPY [facility] EGD, FLEXIBLE, DIAGNOSTIC 04/19/2022 esophagitis, repeat 8-12 wks / [facility] EGD, FLEXIBLE, DIAGNOSTIC 06/26/2022 normal, retained food / [facility] EXPLORATION OF MAXILLARY SINUS 03/17/1995 Sinus Surgery HYSTEROSCOPY,DIAGNOSTIC 2022 atrophic endometrium, endometrial polyp INJECTION LUMBAR/SACRAL 07/31/2015 INJECTION SPINE LUMBAR OR SACRAL performed by Quincy Jenni Prado DO at OR [facility] INJECTION LUMBAR/SACRAL 08/15/2015 INJECTION SPINE LUMBAR OR SACRAL performed by Quincy Prado DO at OR [facility] INSER MARLI CAT,W/O PUMP;5YR/OLD N/A 11/04/2019 INSERT TUNNELED CENTRAL VENOUS CATHETER AGE 6 OR OLDER performed by Ortega Motnez DO at OR [facility] LIGATE/CUT OVIDUCT(S) MISCELLANEOUS ORDER ([facility] ONLY) Bilateral Heel surgery MISCELLANEOUS ORDER ([facility] ONLY) Right 3rd toe nerve decompression, Dr. Del Real [place] COLSC FLX W/RMVL OF TUMOR POLYP LESION SNARE TQ 09/20/2022 7 mm serrated polyp descending colon Isolation: Isolation: Procedure: Placement of right internal jugular vein tunneled dialysis Palindrome heparin bonded catheter with silver ion sleeve. Diagnostic right arm fistulagram with peripheral venous angioplasty Type of Anesthesia: Monitored Local Anesthesia with Sedation Block: N/A IV intake: 400 mL EBL: OR: 100 mL PACU: 0 mL Urine output: OR 0 mL PACU 0 mL IUBC (Kirby): Incision location: right neck/right upper arm Dressing location: right neck/right upper arm Time of last skin assessment: 1511 Pressure injuries or areas of concern: N/A Lines: Peripheral Line Anterior;Left (Active) Status Capped/Locked 03/09/23 1508 Tubing Changed N/A 03/09/23 1508 Phlebitis Scale 0 03/09/23 1508 Infiltration Scale 0 03/09/23 1508 Site Description (Other) Without redness, swelling or drainage 03/09/23 1508 Site Intervention None required 03/09/23 1508 Dressing Assessment Dressing clean, dry, and intact 03/09/23 1508 Dressing Intervention None required 03/09/23 1508 Number of days: 1 CVC Double Lumen Right Internal jugular (Active) Proximal Lumen Status Capped/Locked 03/09/23 1445 Distal Lumen Status Capped/Locked 03/09/23 144 Tubing Changed N/A 03/09/231444 Site Description Without redness, swelling or drainage 03/09/231444 Site Intervention Flushed 03/09/231444 Dressing Assessment Dressing clean, dry, and intact 03/09/231444 Dressing Intervention Applied 03/09/231444 Number of days: 0 Vital Signs: BP: 100/39 (03/09/23 153) Temp: 36.2 C (97.2 F) (03/09/231529) Pulse: 60 (03/09/231529) Resp: 15 (03/09/231529) SpO2: 94 % (03/09/231529) O2 flow rate: 3 L/MIN (03/09/231529) Glucose (Bedside): 100 (03/09/23 1126) Time of last pain medication: 1353 Med: Fentanyl Time of last antibiotic: 1304 Med: Ancef Time of last antiemetic: N/A Med: N/A [employer]: no Drips: no Neurological: Neuro WNL: WNL - within normal limits (03/09/23 0837) Speech: Clear (03/09/231529) Level of Consciousness: Alert (03/09/231529) RUE Motor Strength: 5-Active movement with full resistance (03/09/231529) RLE Motor Strength: 5-Active movement with full resistance (03/09/231529) LUE Motor Strength: 5-Active movement with full resistance (03/09/231529) LLE Motor Strength: 5-Active movement with full resistance (03/09/231529) Coma Score: 15 (03/09/231529) Respiratory: Respiratory WNL: WNL- within normal limits (03/09/231529) Cough: None (03/09/231529) Depth/Rhythm: Regular (03/09/231529) Dyspnea Occurance: None (03/09/231529) Effort: Unlabored (03/09/231529) Oxygen therapy/ Mechanical vent O2 flow rate: 3 L/MIN (03/09/231529) Supplemental O2 Delivery: Nasal Cannula (03/09/231529) Cardiac: Cardiovascular WNL: X - Exceptions to WNL as documented below (03/09/231529) Heart Sounds: S1;S2 (03/09/231529) Rhythm: Regular;SB (03/09/231529) Extremities: +Sensation;Right;Left;Upper;Lower;Vilas;Warm (03/09/231529) Pulses Right: Dorsalis Pedis +;Palpable;Radial + (03/09/231529) Pulses Left: Dorsalis Pedis +;Palpable;Radial + (03/09/231529) Edema: No (03/09/231529) Capillary Refill: 3 sec (03/09/231529) GI: GI WNL: WNL - within normal limits (03/09/231529) Abdomen: Soft;Non-distended;Non-tender (03/09/231529) Bowel Sounds: All Quadrants;Present;Regular (03/09/23 0837) : WNL: X - Exceptions to WNL as documented below (dialysis patient) (03/09/231529) Urine Description: Other-Describe (no urine to assess) (03/09/23 1230) Due to Void: 03/09/23 2100 Integumentary:Integumentary WNL: WNL - within normal limits (03/09/231529) Skin Description: Dry;Warm (03/09/231529) Skin Color: Vilas (03/09/231529) Odn Score (auto-calculation): 13 (03/09/23 0900) Family updated on transfer: no Additional Assessment Information: N/A * Jennifer Tilley RN - 03/09/2023 3:11 PM EST Dual Licensed Skin Assessment completed by Jennifer Bishop RN and Lashonda Morrison RN. The patient is/has a N/A Skin Breakdown (includes non blanchable erythema): Yes - Surgical/Procedural changes only. * Zulema Nunez RN - 03/09/2023 12:31 PM EST Dual Licensed Skin Assessment completed by Kenzie Nunez RN and Piter Mclean RN. The patient is/has a N/A Skin Breakdown (includes non blanchable erythema): No * Era Roca BSN - 03/09/2023 12:09 PM EST IP TO PERIOP HANDOFF COMMUNICATION NOTE [address] [address] Name: Kami French AGE: [age] year old Location: [address] Date: 03/09/2023 Attention to: PACU Report from: PAYAL Day Patient arriving via: Bed Time of Call: 12:09 PM Phone Ext.: [phone] Reason for SBAR handoff: OR Consent: Emotional/Personal Events & Special Needs: VERY [place] Allergies: Patient has no known allergies. PMH: Past Medical History: Diagnosis Date (HFpEF) heart failure with preserved ejection fraction (HCC) Acute on chronic diastolic (congestive) heart failure ([facility]) 03/04/2020 [facility] Allergic rhinitis 02/15/2000 acute BMI 38.0-38.9,adult 08/28/2009 Chronic Sinusitis Unspecified Controlled substance agreement signed 11/25/2016 COVID-19 10/23/2021 Cystitis 05/23/2022 admitted [facility] home on cefuroxime Dyslipidemia, goal LDL below 100 Esophagitis determined by biopsy 04/19/2022 LA grade B esophagitis, inflammation gastric antrum, body and duodenum AYSHA (generalized anxiety disorder) Hearing loss, sensorineural 01/2005 History of non-ST elevation myocardial infarction (NSTEMI) 08/24/2018 HTN (hypertension) Meniere's disease Multiple falls 04/20/2019 History of falls on the pl NSTEMI (non-ST elevated myocardial infarction) ([facility]) 09/03/2018 Parkinson disease Rectal bleeding Restless leg syndrome 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 factor ([facility]) 07/18/2016 SDH (subdural hematoma) ([facility]) 04/20/2019 acute Serrated polyp of colon 09/20/2022 7 mm descending colon Sleep apnea Tinnitus 01/2005 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 (HCC) PSH: Past Surgical History: Procedure Laterality Date ARTHROPLASTY KNEE TOTAL Left Dr. Del Real CARPAL TUNNEL SURGERY Bilateral COLONOSCOPY, DIAGNOSTIC (RECTUM) 11/27/2015 normal, repeat 10 yrs/COLONOSCOPY FLEXIBLE PROXIMAL DIAGNOSTIC performed by Garrett Chang MD at ENDOSCOPY [facility] EGD, FLEXIBLE, DIAGNOSTIC 04/19/2022 esophagitis, repeat 8-12 wks / [facility] EGD, FLEXIBLE, DIAGNOSTIC 06/26/2022 normal, retained food / [facility] EXPLORATION OF MAXILLARY SINUS 03/17/1995 Sinus Surgery HYSTEROSCOPY,DIAGNOSTIC 2022 atrophic endometrium, endometrial polyp INJECTION LUMBAR/SACRAL 07/31/2015 INJECTION SPINE LUMBAR OR SACRAL performed by Quincy Prado DO at OR [facility] INJECTION LUMBAR/SACRAL 08/15/2015 INJECTION SPINE LUMBAR OR SACRAL performed by Quincy Prado DO at OR [facility] INSER MARLI CAT,W/O PUMP;5YR/OLD N/A 11/04/2019 INSERT TUNNELED CENTRAL VENOUS CATHETER AGE 5 OR OLDER performed by Ortega Montez DO at OR [facility] LIGATE/CUT OVIDUCT(S) MISCELLANEOUS ORDER ([facility] ONLY) Bilateral Heel surgery MISCELLANEOUS ORDER ([facility] ONLY) Right 3rd toe nerve decompression, Dr. Del Real [place] COLSC FLX W/RMVL OF TUMOR POLYP LESION SNARE TQ 09/20/2022 7 mm serrated polyp descending colon Isolation: Situation/Background Admission Date: 03/09/2023 Patient Service: Med S Attending: Vidhi Laguerre MD Level of Care: Med Surg [3] Assessment Vital Signs: BP: 103/52 (03/09/23 1138) Temp: 37.1 C (98.7 F) (03/09/23 1138) Pulse: 60 (03/09/23 1138) Resp: 16 (03/09/23 1138) SpO2: 96 % (03/09/23 1138) O2 flow rate: 2 L/MIN (03/09/23 1138) Glucose (Bedside): 100 (03/09/23 1126) Lines: Peripheral Line Anterior;Left (Active) Status Capped/Locked;Flushes easily;Alcohol disinfectant cap 03/09/23 0900 Tubing Changed N/A 12/24/23 0900 Phlebitis Scale 0 03/09/23899 Infiltration Scale 0 03/09/23899 Site Description (Other) Without redness, swelling or drainage 03/09/23899 Site Intervention Flushed 03/09/23899 Dressing Assessment Dressing clean, dry, and intact 03/09/23899 Dressing Intervention None required 03/09/23899 Number of days: 1 Restraints: No orders of the defined types were placed in this encounter. Labs: Please see Lab Flowsheet for lab values. Lab Comments: n/a Diet: Orders Placed This Encounter Procedures NPO Except Meds NPO: Additional Diet Information: n/a Intake and Output: Intake/Output Summary (Last 24 hours) at 03/09/2023 1209 Last data filed at 03/09/2023 0700 Gross per 24 hour Intake 110 ml Output -- Net 110 ml Belongings Remaining with Patient: none What were AM meds taken with: water Time of last pain medication: n/a Med: n/a Time of last antibiotic: 652 Med: Rocephin Time of last skin assessment: 0800 Pressure injuries or areas of concern: sacrum red heels red Neurological: Neuro WNL: WNL - within normal limits (03/09/23836) Speech: Clear (03/09/23836) Level of Consciousness: Alert (03/09/23836) RUE Motor Strength: 5-Active movement with full resistance (03/09/23836) RLE Motor Strength: 4-Active movement with some resistance (03/09/23836) LUE Motor Strength: 5-Active movement with full resistance (03/09/23836) LLE Motor Strength: 4-Active movement with some resistance (03/09/23836) Coma Score: 15 (03/09/23 1138) Respiratory: Respiratory WNL: X - Exceptions to WNL as documented below (03/09/23836) Cough: None (03/09/23836) Depth/Rhythm: Regular (03/09/23836) Dyspnea Occurance: None (03/09/23836) Effort: Unlabored (03/09/23836) Oxygen therapy/ Mechanical vent O2 flow rate: 2 L/MIN (03/09/23 1138) Supplemental O2 Delivery: Nasal Cannula (03/09/238) Cardiac: Cardiovascular WNL: WNL - within normal limits (03/09/23836) Heart Sounds: S1;S2 (03/09/23836) Rhythm: Regular (03/09/238) Extremities: +Sensation;Right;Left;Upper;Lower (03/09/23836) Pulses Right: Dorsalis Pedis +;Radial +;Palpable (03/09/23836) Pulses Left: Dorsalis Pedis +;Radial +;Palpable (03/09/23836) Edema: No (03/09/23836) Capillary Refill: 3 sec (03/09/23836) GI: GI WNL: WNL - within normal limits (03/09/23836) Abdomen: Soft;Non-distended;Non-tender (03/09/23836) Bowel Sounds: All Quadrants;Present;Regular (03/09/23836) : WNL: X - Exceptions to WNL as documented below (03/09/23836) Urine Description: Other-Describe (no urine to assess) (03/09/23836) Integumentary: Integumentary WNL: X - Exceptions to WNL as documented below (03/09/23836) Skin Description: Dry;Warm (03/09/23836) Skin Color: Flesh Tone;Mucus Membranes Vilas;Nail beds pink (03/09/23836) Don Score (auto-calculation): 13 (03/09/23 0900) Additional Assessment Information: n/a * Demetri Perez RN - 03/09/2023 4:01 AM EST Dual Licensed Skin Assessment completed by Demetri Dumas RN and Tyrone Holcomb RN. The patient is/has a N/A Skin Breakdown (includes non blanchable erythema): No documented in this encounter OR Notes * OR Surgeon - Fred Brown MD - 03/09/2023 1:32 PM EST [facility] [address] [facility] [address] OPERATIVE REPORT Name: Kami French Date: 03/09/2023 Time: 1:32 PM Location: [place] [facility] Service: Vascular Surgery Date of Operation: 03/09/2023 Pre-op Diagnosis: Renal failure with need for hemodialysis catheter, malfunction of fistula Post-op Diagnosis: Same Surgeon: Fred Brown MD Assistants: Ciro Herrera MD Anesthesia: Monitored Local Anesthesia with Sedation Operation: Placement of right internal jugular vein tunneled dialysis Palindrome heparin bonded catheter with silver ion sleeve. Diagnostic right arm fistulagram with peripheral venous angioplasty Findings: Palindrome tunneled dialysis catheter was inserted successfully into the jugular vein andbrought out through a separate incision on the anterior chest wall. The tip of the dialysis catheter is at the level of the atriocaval junction. No evidence of pneumothorax on completion film. Right brachiocephalic fistula with small patent anastomosis and a stenosis in the the proximal portion of the cephalic vein. No central venous stenosis. After angioplasty there is satisfactory result. May use catheter for dialysis immediately. Rest fistula for at least one week prior to accessing again. Specimens and Disposition: None Estimated Blood Loss: 100 ml. IV fluids: 400 ml. crystalloid Urine Output: None Drains/Implants: Palindrome catheter. Complications: None Postoperative Condition: Stable Indications and History: The patient is a 77 year old female who presents with renal failure for need of tunneled dialysis catheter. Description of Operation: The patient was identified as Kami French and the procedure confirmed. In the operating room a time out was held and the above information confirmed. The right neck and chest were prepped and draped in usual sterile fashion. Local anesthetic was infiltrated over the right internal jugular and along the track on the chest wall. Percutanous access to the internal jugular vein was obtained under ultrasound guidance without difficulty. Duplex revealed the jugular vein to be anechoic and compressible. The Palindrome wire and 16-F peel away sheath were placed into the jugular vein. The proper length of catheter was confirmed under fluroscopic guidance by placing the catheter on a towel over the skin. An small incision was then created for the exit site of the catheter over the chest wall and the catheter was tunneled to the internal jugular entry site. The 19 cm Palindrome catheter was then passed through the peel away sheath into the jugular vein and the sheath removed. The tip of the catheter was positioned at the atriocaval junction. The catheter was initially kinked and despite repositioning this could not be resolved. Therefore the catheter was re-wired and a skin bridge divided. The initial catheter was in poor condition so a wire was brought back out through the neck incision and a new catheter was tunneled through the same tunnel and re-introduced through a peel away sheath. The position of the catheter was confirmed by fluroscopy and found to be without any significant kink. The catheter was secured with 3-0 nylon suture. The jugular vein skin incision was closed with asingle 4-0 monocryl suture. Each lumen of the catheter was aspirated and had excellent blood return. Each lumen was flushed with heparinized saline and capped with straight heparin per protocol. Sterile dressings applied including chlorhexidine dressing over the catheter exit site. The right brachiocephalic fistula was punctured peripherally utilizing ultrasound guidance. A wire was advanced into the fistula and a 4 fr microcatheter left in place utilizing Seldinger technique. A complete fistulagram including reflux images was performed, results above. After review of the imaging it was clear a second access was needed. The fistula was accessed centrally in similar fashion,and the transition sheath was exchanged for a 5 moroccan sheath. Heparin was given intravenously. Thestenotic cephalic vein underwent angioplasty with a 5 mm Lillian balloon followed by a 7 mm Lillian balloon followed by a 10 mm Lillian. Follow up angiography demonstrated a satisfactory result. Wires and catheters were removed and access sites were closed with 4-0 monocryl. Sponge count and needle counts were correct. The patient was transported in stable condition to the Recovery Room. The dialysis catheter may be used immediately. Attestation: I was present and scrubbed for the nicole portions of the procedure documented in this encounter Miscellaneous Notes * Ancillary Progress Note - Misty Basilio OSA - 03/18/2023 1:05 PM EST [facility] Request Member Name: Kami French This request has been denied by the Sucker Machine Operator at [facility]. If the Physician in the hospital does not agree with this decision, he/she can call [phone] by 16:00 of the next business day and tell the associate he/she would like to speak with our Sucker Machine Operator concerning a denial of skilled SNF admission. If you have any additional information to support the requested level of care please contact [facility]. You will be receiving a letter via FAX to the Care Management Dept. * Ancillary Progress Note - Caroline Rodas, ELSA - 03/18/2023 10:21 AM EST CARE MANAGEMENT - ADULT DISCHARGE NOTE [facility] [place] [address] Name: Kami French Location: [facility] [id number] Date: 03/18/2023 Time: 10:22 AM The following coordination of care and discharge plan has been coordinated with the care team, patient, family and/or caregiver according to the patients needs and preferences. Discharge Discharge Second Notice Important Message from Medicare delivered: Yes (03/18/23 103) Date Delivered: 03/18/22 (03/18/23 103) Was Caregiver/Family/Facility contacted regarding discharge: Yes (03/18/23 103) Discharge Transportation: BLS (03/18/23 103) Date of scheduled discharge transportation: 03/18/23 (03/18/23 103) Time of scheduled discharge transportation: 1400 (03/18/23 103) Patient declined post-hospital transition of care recommendation: N/A (03/18/23 103) Final Discharge Plan (Complete only at time of Discharge): SNF (03/18/23 1031) Destination - Admitted Since 03/09/2023 Service Provider Selected Services Address Phone Fax Patient Preferred Last Updated [facility] [address] [address] [phone] -- Jennifer Camacho MSW 03/13/2023 1113 Narrative: Pt accepted to above facility. SW called and spoke with [facility], confirmed they are aware of d/c plans and agreeable to resume care. Requested dc summary, H&P, and recent dialysis notes be faxed to [phone]. Will complete. Met with pt at bedside. Agreeable to plan. Declines me calling spouse to update. Service, nurse, [facility] aware of plan. Reviewed IMM with patient and informed that patient is medically stable for discharge, however, mayhave 4 hours to consider whether they want to appeal discharge. Patient waived waiting those 4 hours and wishes for discharge to occur prior to that time. * Ancillary Progress Note - Caroline Rodas MSW - 03/18/2023 10:16 AM EST POST ACUTE CARE CARE MANAGEMENT [facility] [address] Name: Kami French Location: [facility] H874/A Date: 03/18/2023 Time: 10:16 AM Post-Acute Care Patient General Information Living Quarters: House (03/11/231537) How many stories is the dwelling?: One Story (03/11/231537) Number of steps to enter living quarters:: 0 (03/11/231537) Location of bathroom(s): All floors or Single story dwelling (03/11/231537) Do you have serious difficulty walking or climbing stairs? (5 years old or older): Yes (03/09/23354) History of falling: No (03/17/231999) What was your living situation prior to admission/observation?: With Spouse (03/09/23354) Do you have any children, pets, or other dependents that you are currently caring for?: No (03/09/23354) AM-PAC Score With Stairs : 8 (03/17/23920) Post-Acute Care with AM-PAC < 17.99 Rehab diagnosis: Does not meet criteria (03/18/23 1015) Fdc Facility (SNF) Guidelines For Medical Approval (must select both): Care must be provided by an RN/[employer] and cannot be managed at home;Care requires observation, monitoring and evaluation of effectiveness on a daily basis (03/18/231014) SNF guidelines for Rehab Approval (All selections required): Able to participate for at least 1 hour of therapy per day;Services required only able to be provided in an inpatient setting;Established rehabilitative progress;One or more therapy modalities (PT/OT/ST) at least 5 times a week;Requires intense care planning with realistic goals as identified by 1 of the following;Frequent monitoring and or revision of treatment plan;Requries Training (select at least one);Frequent re-assessment of established rehabilitative progress (03/18/231014) Therapy Modalities: Physical Therapy;Occupational Therapy (03/18/231014) SNF Required Training: Gait training;Transfer Training;ADL training, with or without adaptive equipment (03/18/231014) Approved for [facility]dc Rehab: Approved for [facility] Rehab (03/18/231014) Pt accepted to [facility]. * Care Plan - Tayla Cordova RN - 03/15/2023 7:06 AM EST Clinical Goal(s): Pt will remain free from falls throughout shift (03/14/23 2300) Possible barriers to meeting goal(s)/advancing plan of care: impaired mobility Stability of the patient: Moderately stable - low risk of patient condition declining or worsening Summary regarding today's goal(s): Met: met Recommendations: continue fall precautions * Ancillary Progress Note - Jennifer Camacho MSW - 03/14/2023 9:16 AM EST CARE MANAGEMENT - ADULT TRANSITION NOTE [facility] [address] Name: Kami French Location: [facility] H874/A Date: 03/14/2023 Time: 9:16 AM Risk Stratification Risk Stratification Psycho Social / Medical Concerns Identified: Adjustment to illness/injury (03/11/23 1538) Readmission Risk Score: 21.54 (03/14/23 0801) AM-PAC Score With Stairs : 6 (03/12/231999) Caregiver Information Patient Contacts Name Relation Home Work Mobile LOLLY FRENCH Spouse [phone] Carmen Hughes Adult Child [phone] LOLLY FRENCH is the patient's surrogate decision maker Transition of Care Checklist Transition of Care Checklist (aka Readmission Risk Score) Discharge Disposition: Post-Acute (03/11/231538) Narrative: Pt was discussed with service this AM. Pt is medically ready for DC at this time pendingplacement. [facility] able to accept Pt for 03/18/23. SW reached out to PT/OT to see Pt to submit for P auth. Therapy to see on Friday. SW requested tentative ride in [place] for 2 pm on Fridayfor DC after HD. RIDE CLAIMED FOR @ PM W/ [facility] @ 2 PM ON Friday03/18/23. SW will continue to followfor evolving needs and support. Anticipated Transportation at Discharge: S Patient/Family Expectations: SNF Transition Planning Transition Planning Transition Plan/Considerations: Needs identified - Discharge planning services explained to patientfamily / caregiver - Choices offered (03/11/231538) Transition services explained and patient/family/caregiver agreeable: Fdc (03/11/231538) Insurance Considerations: Precertification needed for Post-Acute Care;Prior authorization for medication;Therapy documentation needed for precert request (03/11/231538) Additional Considerations: N/A Care Management will continue to monitor and assist with discharge planning needs * Care Plan - Tayla Cordova RN - 03/14/2023 5:58 AM EST Clinical Goal(s): Pt will remain free from falls throughout shift (03/13/23 2300) Possible barriers to meeting goal(s)/advancing plan of care: weakness Stability of the patient: Moderately stable - low risk of patient condition declining or worsening Summary regarding today's goal(s): Met: met Recommendations: continue to use fall precautions and encourage call reina for assistance * Ancillary Progress Note - Jennifer Camacho, RISK ANALYST - 03/13/2023 11:16 AM EST CARE MANAGEMENT - ADULT TRANSITION NOTE [facility] [address] Name: Kami French Location: [facility] Date: 03/13/2023 Time: 11:16 AM Risk Stratification Risk Stratification Psycho Social / Medical Concerns Identified: Adjustment to illness/injury (03/11/231537) Readmission Risk Score: 20.09 (03/13/23 0801) AM-PAC Score With Stairs : 6 (03/12/231999) Caregiver Information Patient Contacts Name Relation Home Work Mobile LOLLY FRENCH Spouse [phone] Carmen Hughes Adult Child [phone] LOLLY FRENCH is the patient's surrogate decision maker Transition of Care Checklist Transition of Care Checklist (aka Readmission Risk Score) Discharge Disposition: Post-Acute (03/11/231538) Narrative: Pt was discussed with service this AM. Pt is medically ready for DC at this time pendingplacement. SW received a call from Janina at [facility] ([phone]) stated able to offer a bed forPt on Friday03/18/23. Able to accept in the afternoon after HD. SW will request a ride for 2 pm on Friday in [place]. Janina requested that [facility] auth be submitted on Friday. Janina to call Pt's to get together admission paperwork. REMY called and spoke to Pt's , Lolly. Agreeable to bed offerand acceptance on Friday. SW will continue to follow for evolving needs and support. Anticipated Transportation at Discharge: BLS Patient/Family Expectations: SNF Transition Planning Transition Planning Transition Plan/Considerations: Needs identified - Discharge planning services explained to patientfamily / caregiver - Choices offered (03/11/231538) Transition services explained and patient/family/caregiver agreeable: [facility]dc (03/11/231538) Insurance Considerations: Precertification needed for Post-Acute Care;Prior authorization for medication;Therapy documentation needed for precert request (03/11/231538) Additional Considerations: N/A Care Management will continue to monitor and assist with discharge planning needs * Care Plan - Hardeep Carnes RN - 03/13/2023 6:33 AM EST Clinical Goal(s): patient will be free from falls (03/12/231999) Possible barriers to meeting goal(s)/advancing plan of care: pt condition Stability of the patient: Moderately stable - low risk of patient condition declining or worsening Summary regarding today's goal(s): Met: no falls Recommendations: assist OOB * Ancillary Progress Note - Jennifer Camacho MSW - 03/12/2023 2:31 PM EST CARE MANAGEMENT - ADULT TRANSITION NOTE [facility] [address] Name: Kami French Location: [facility] Date: 03/12/2023 Time: 2:31 PM Risk Stratification Risk Stratification Psycho Social / Medical Concerns Identified: Adjustment to illness/injury (03/11/23 1538) Readmission Risk Score: 19.66 (03/12/23 1201) AM-PAC Score With Stairs : 6 (03/12/23 0800) Caregiver Information Patient Contacts Name Relation Home Work Mobile LOLLY FRENCH Spouse [phone] Carmen Hughes Adult Child [phone] LOLLY FRENCH is the patient's surrogate decision maker Transition of Care Checklist Transition of Care Checklist (aka Readmission Risk Score) Discharge Disposition: Post-Acute (03/11/23 1539) Narrative: Pt was discussed with service this AM. Pt is medically ready for DC at this time pendingplacement. REMY spoke to REMY Moya at [facility] in [place]. Stated that they have Pts come to their facility from [facility] if looking for other options. Stated that Pt's mangle press catcher, Dr. Busby, was to call [facility] to speak to them about Pt. Pt's , Lolly, also expressed this information. [facility] denied in [place]. Pt's agreeable to additional referrals to [facility], [facility], [facility], and [facility] (in that order). Lolly stated that Pt is on the wait list at some of the above facilities and would like to visit the other locations prior to Pt being transported if accepted. Pt will need to move HD locations if not accepted at [facility](has on site HD) or [facility]. SW spoke to Lolly about Pt returning to [facility]. Lolly stated he is agreeable if [facility] will accept back. 245 - SW called and spoke to Zulema at [facility], stated that they have no LTC beds and they are unable to accept Pt. SW reached out to Zulema with [facility] to make aware of referral as well. SW will continue to follow for evolving needs and support. Anticipated Transportation at Discharge: BLS Patient/Family Expectations: SNF Transition Planning Transition Planning Transition Plan/Considerations: Needs identified - Discharge planning services explained to patientfamily / caregiver - Choices offered (03/11/231538) Transition services explained and patient/family/caregiver agreeable: [facility]dc (03/11/231538) Insurance Considerations: Precertification needed for Post-Acute Care;Prior authorization for medication;Therapy documentation needed for precert request (03/11/231538) Additional Considerations: N/A Care Management will continue to monitor and assist with discharge planning needs * Care Plan - Irene Roberson RN - 03/11/2023 10:34 PM EST Problem: Actual & Potential for Falls Goal: Patient will remain free of falls. Outcome: Progressing Clinical Goal(s): Patient will remain free of falls this shift. (03/11/231999) Possible barriers to meeting goal(s)/advancing plan of care: hospitalization, admitting diagnosis Stability of the patient: Moderately stable - low risk of patient condition declining or worsening Summary regarding today's goal(s): Met: Patient remained free of falls this shift. Recommendations: hourly rounds, call reina within reach, fall precautions * Care Plan - Gem Palma RN - 03/11/2023 5:48 PM EST Clinical Goal(s): Pt will have no c/o of SOB this shift. (03/11/23 0700) Possible barriers to meeting goal(s)/advancing plan of care: Stability of the patient: Moderately stable - low risk of patient condition declining or worsening Summary regarding today's goal(s): Met: no c/o of SOB Recommendations: Continue to monitor patient for SOB and encourage patient to report any increased in SOB * Ancillary Progress Note - Arnoldo Keith RDN - 03/11/2023 4:09 PM EST CLINICAL NUTRITION ADULT RISK ASSESSMENT [address] [address] Name: Kami French Location: [facility] Date: 03/11/2023 Time: 4:09 PM How patient was identified (select 2): Medical record number and Name Kami French is a 77 year old female being assessed for clinical nutrition risk related to dialysis Primary diagnosis: Problem with dialysis access (HCC) Other pertinent information: Patient is sleeping comfortably this morning, didn't respond this thiswriter. Spoke to pt's , he reports that normally she eats well at home. Trying to follow renal diet. Doesn't drink any supplements. No chewing/swallowing difficulty reported. Her UBW-108 kg. Not sure about dry weight. Anthropometrics Measurements Admission weight (for dietitians): 105.235 kg (232 lb) Height: 157.5 cm (5' 2") (03/09/23 0720) Weight: 104.8 kg (231 lb) (03/11/23 0600) EDW for Dialysis Patients: unknown Diet: 4 Choices (60 gm) Consistent Carbohydrate Renal Dialysis Adult Other: heart healthy Previously followed diet: renal Food Allergies/Intolerances: none Pertinent medications/vitamins/minerals/supplements: Novolog, levoxyl, Prilosec, RISK FACTORS: Adult Energy Intake: No significant decrease Interpretation of Weight Change: Change likely secondary to fluid Skin: Intact NUTRITION RISK CATEGORY: Dialysis Risk: BMI less than 23 - no Pre-dialysis serum albumin less than 3.5 gm/dl for HD or less than 3.3 gm/dl for PD Latest Reference Range & Units 02/24/23 13:13 Albumin 3.8 - 5.0 g/dL 4.1 NUTRITION RISK CATEGORY: Low/Moderate (0-1 factors) Clinical Nutrition Recommendations: Diet: Continue current nutrition plan NUTRITION INTERVENTION/PLAN: Continue current care plan Will follow and adjust nutritional plan as medical condition requires. Please contact for change(s)in patient condition requiring earlier intervention. Arnoldo Keith MS, DC, LDN Clinical Dietitian [facility] text * Ancillary Progress Note - Jennifer Camacho MSW - 03/11/2023 3:36 PM EST CARE MANAGEMENT - ADULT INITIAL SCREENING [address] [address] Name: Kami French Location: [facility] Date: 03/11/2023 Time: 3:36 PM Discussed patient with the interdisciplinary care team. This Charge Histotechnologist performed a chart review to complete admission screen and assessed needs for transition planning. The infant caregiver role and services were explained and emotional support was provided. Chief Complaint: No chief complaint on file. Prior Living Arrangements What was your living situation prior to admission/observation?: With Spouse (03/09/23354) Living Quarters: House (03/11/231537) Number of steps to enter living quarters:: 0 (03/11/231537) Do you have serious difficulty walking or climbing stairs? (5 years old or older): Yes (03/09/23354) History of falling: No (03/11/23 08) Prior Level of Functioning Describe the patient's ability prior to admission/observation to perform ADLs: Requires assistance (03/09/23354) Requires assistance with: Dressing;Toileting;Bathing;Grooming;Eating (03/09/23354) Describe the patient's mobility status prior to admission: Patient requires assistance with ambulation (03/09/235) Patient uses assistive device: Yes (03/11/231537) If yes, choose:: Wheelchair;Other (03/11/231537) Caregiver Information Patient Contacts Name Relation Home Work Mobile LOLLY FRENCH Spouse [phone] Carmen Hughes Adult Child [phone] LOLLY FRENCH is the patient's surrogate decision maker Risk Stratification/Psychosocial/Care Gaps Risk Stratification Psycho Social / Medical Concerns Identified: Adjustment to illness/injury (03/11/231537) Readmission Risk Score: 21.9 (03/11/23 1201) AM-PAC Score With Stairs : 6 (03/11/23 1122) Prior to Admission Services Services Prior to Admission PHARMACY RESIDENT Services (Services received within the last 30 days with exception, Psych within last two years): Durable Medical Equipment (03/11/231537) PHARMACY RESIDENT Durable Medical Equipment (DME) in home: Wheelchair motorized;Pino Lift (03/11/231537) PHARMACY RESIDENT Transportation (Services received within the last 30 days): Medical Transportation;Family/Friends Personal Vehicle (03/11/231537) Outpatient Charge Histotechnologist: Patient Care Team: Sallie Lynne RN as Contracts Paralegal ([facility]) Patient/Family Expectations: Pt's interested in Pt going to SNF for STR. SW called and spoke to Pt's , stated looking for LT for Pt. Pt currently goes [facility] [place] for HD. Pt's would like a referral to [facility]. SW opened in [facility]. SW will continue to follow for evolving needs and support. For further screening information, please refer to the Care Management flow document. * Care Plan - Jenny Mcdonald RN - 03/10/2023 2:08 AM EST Clinical Goal(s): pt will remain free of falls (03/09/23 0700) Possible barriers to meeting goal(s)/advancing plan of care: assist of 2 Stability of the patient: Moderately stable - low risk of patient condition declining or worsening Summary regarding today's goal(s): Met: patient had no falls this shift Recommendations: continue with current plan of care * Progress Notes - Non-Billable - Vidhi Laguerre MD - 03/09/2023 4:40 PM EST Images from the original note were not included. [facility] H874/A INTERVAL HISTORY: The patient was seen examined this morning at the bedside, the patient was resting comfortably, on supplemental oxygen via nasal cannula, hard of hearing, stated that her hearing aids battery . Stated that she was brought to the hospital because her AV fistula was not working. Patient could notprovide me with any other details. All other systems reviewed with the patient negative. I later called the Lolly and he stated that patient has a dialysis schedule of TTS but patient has missed last 2 dialysis sessions because of AV fistula malfunction. Updated the Nephrology fellow. Patient scheduled for possible dialysis tomorrow. requesting placement to [facility] any rehab. Stated that patient is at baseline wheelchair-bound. Patient underwent tunneled dialysis catheter and fistulogram with vascular today, stated okay to use catheter for dialysis and not use fistula for about a month for dialysis. Objective Physical Exam Most Recent Vital Signs: BP: 97 mmHg/41 mmHg (03/09/23 1603) Pulse: 54 (03/09/23 1603) Temp: 36.78 C (03/09/23 1603) Resp: 14 (03/09/23 1603) SpO2: 100 % (03/09/23 1622) Constitutional: No Apparent distress, on nasal cannula, hard of hearing HEENT: normocephalic, atraumatic; no masses, tenderness, or adenopathy Eyes: PERRLA, sclera and conjunctiva normal Neck: supple, normal range of motion CV: Normal Rate and Normal Rhythm, no murmur, gallops or rub Chest: normal respiratory effort, lungs clear to auscultation Abdomen: normal: soft, bowel sounds normal, no masses, tenderness or organomegaly Musculoskeletal: (-) negative Extremities: no clubbing, cyanosis, or edema, otherwise grossly normal, warm, and dry Skin: warm, dry, intact: Neuro: alert, oriented to person, place, and time, normal mental status exam Psych: normal mood and affect, nonsuicidal, judgement normal, memory normal Peripheral Line Anterior;Left (Active) Number of days: 1 CVC Double Lumen Right Internal jugular (Active) Number of days: 0 STUDIES: Encounter Orders Labs and other studies reviewed with pertinent findings noted below: Labs: Recent Results (from the past 6 hour(s)) BASIC METABOLIC PANEL Collection Time: 03/09/23 10:49 AM Result Value Ref Range BUN 46 (H) [...] Calcium 9.0 8.4 - 10.2 mg/dL MAGNESIUM Collection Time: 03/09/23 10:49 AM Result Value Ref Range Magnesium 2.4 1.5 - 2.6 mg/dL CBC Collection Time: 03/09/23 10:49 AM Result Value Ref Range WBC 8.26 4.00 [...] nRBCs 0 <=0 /100 WBCs DIFFERENTIAL, AUTOMATED Collection Time: 03/09/23 10:49 AM Result Value Ref Range WBC 8.26 4.00 [...] Immature Granulocytes 0.20 0.00 - 0.20 K/uL GLUCOSE METER, POINT OF CARE Collection Time: 03/09/23 11:27 AM Result Value Ref Range Glucose Meter 100 70 - 120 mg/dL GLUCOSE METER, POINT OF CARE Collection Time: 03/09/23 4:18 PM Result Value Ref Range Glucose Meter 113 70 - 120 mg/dL Imaging: VASC PROCEDURE IN VASCULAR ANGIO SUITE Final Result This procedure will not be read by a Radiologist. Please see operative note. IR VENOUS FISTULOGRAM (Results Pending) Assessment and Plan 77 year old female with type 2 diabetes mellitus not on long-term insulin with ESRD and neuropathy,dementia, rheumatoid arthritis, Parkinson syndrome, HTN, ESRD on TTS, hypothyroidism HLD, obesity, RENÉ, GERD, COPD on home oxygen, chronic diastolic heart failure, chronic left bundle branch block, with history of CVA and OH, diverticulosis, int/ext hemorrhoids. Hysteroscopy w thickened endometriumw benign path. presents to the hospital as a transfer from [facility] due to HD fistula dysfunction was not able to be cannulated today after several attempts . Transferred to [facility] for Fistulogram further workup and assessment. Patient has dialysis scheduled for TTS and missed last 2 sessions of dialysis prior to admission. Patient remained hemodynamically stable during the hospital stay, underwent fistulogram and placementof right internal jugular tunneled dialysis catheter by vascular surgery on 03/09/2023. Nephrology planning on for session of dialysis tomorrow. requesting placement to [facility] any rehab AVF malfunction status post fistulogram and tunneled dialysis catheter placement right-side 03/09/2023 ESRD TTS Nephrology to do dialysis tomorrow Appreciate vascular input Avoid nephrotoxic agents Renally dose medications BMP, Mg, Phos AM BMP daily PT OT evaluation Type 2 diabetes mellitus not on long-term insulin with ESRD and neuropathy Hold all oral antihyperglycemics while in the hospital Start medium dose SSI glucose checks a.c. HS Hypoglycemia protocol Other Chronic medical Problems Hypertensive heart disease with combined systolic and diastolic heart failure Obesity Hypothyroidism Dyslipidemia Primary parkinsonism COPD History of CVA Dementia Continue with PHARMACY RESIDENT medications, no new recommendations IMPRESSION : Principal Problem: Problem with dialysis access (HCC) Active Problems: Hypothyroidism due to acquired atrophy of thyroid Obesity Type 2 diabetes mellitus with hemoglobin A1c goal of less than 7.0% (HCC) Dyslipidemia, goal LDL below 100 AYSHA (generalized anxiety disorder) RENÉ on CPAP 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 factor (HCC) Primary parkinsonism History of non-ST elevation myocardial infarction (NSTEMI) COPD, group B, by GOLD 2017 classification ([facility]) Chronic heart failure with preserved ejection fraction (HCC) 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 (HCC) Diabetes mellitus with ESRD (end-stage renal disease) ([facility]) History of CVA (cerebrovascular accident) 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[facility]) UTI (urinary tract infection) Resolved Problems: * No resolved hospital problems. * PHARMACOLOGIC VTE PROPHYLAXIS: hEParin CODE STATUS: Full Code EXPECTED DISCHARGE DATE: No information available * Progress Notes - Non-Billable - Ciro Herrera MD - 03/09/2023 3:46 PM EST Images from the original note were not included. VASCULAR SURGERY POSTOPERATIVE PROGRESS NOTE [facility] [address] Name: Kami French Location: [place] [facility] Date: 03/09/2023 Time: 3:46 PM SUBJECTIVE: No acute events postop, patient is resting comfortably. Pain is well-controlled. OBJECTIVE: Most Recent Vital Signs: BP: 100 mmHg/39 mmHg (03/09/23 1530) Pulse: 60 (03/09/23 1530) Temp: 36.22 C (03/09/23 1530) Resp: 15 (03/09/23 1530) SpO2: 94 % (03/09/23 1530) Vital Signs Last 24 Hours: Most Recent Systolic BP Av.1 mmHg Min: 100 mmHg Max: 123 mmHg Most Recent Temperature Av.6 C Min: 36.22 C Max: 37.06 C Pulse Av.6 Min: 56 Max: 73 Resp Av.8 Min: 10 Max: 28 SpO2 Av.5 % Min: 86 % Max: 99 % Intake/Output Summary (Last 24 hours) at 03/09/2023 1546 Last data filed at 03/09/2023 1501 Gross per 24 hour Intake 530 ml Output -- Net 530 ml Physical Exam: Constitutional: No acute distress HEENT: Normocephalic Cardiac: Normal sinus rhythm. Palpable radial pulses bilaterally. Resp: Satting well on room air Abdomen/Pelvis: Soft, non-tender Extremities: Warm and well perfused. RUE fistula with palpable thrill Neuro: gross sensation and motor function intact bilaterally Vascular: TDC in place at right chest LABS: Lab results within last 7 days (see chart for full results) Units 03/09/23 1049 03/09/23 0604 WBC K/uL 8.26 7.59 HGB g/dL 9.5* 9.9* PLT K/uL 273 284 Sodium mmol/L 142 -- Potassium mmol/L 3.8 -- Chloride mmol/L 101 -- CO2 mmol/L 23 -- BUN mg/dL 46* -- Creatinine mg/dL 10.2* -- Calcium mg/dL 9.0 -- Recent Cultures (2 Weeks) 10/13/2019 04/28/2019 04/25/2019 04/20/2019 12/03/2018 10/06/2015 09/29/2015 2015 1:10 PM 8:00 AM 6:04 PM 8:09 PM 4:05 PM 1:37 PM 2:25 PM 4:22 PM SPECIMEN DESCRIPTION URINE CATHETERIZED URINE CLEAN CATCH URINE CLEAN CATCH URINE SYNOVIAL FLUID LEFT KNEE CLEAN CATCH URINE URINE CLEAN CATCH URINE SYNOVIAL FLUID LEFT KNEE CULTURE LESS THAN 100 COLONIES/ML (NO GROWTH) >100,000 COLONIES/ML PROTEUS MIRABILIS LESS THAN 10,000 COLONIES/ML NORMAL JALEN ONE COLONY TYPE LESS THAN 10,000 COLONIES/ML NORMAL JALEN ONE COLONY TYPE NO FUNGUS ISOLATED LESS THAN 10,000 COLONIES/ML MIXED JALEN MULTIPLE JALEN SUGGESTS CONTAMINATION OR COLONIZATION 10,000 TO 100,000 COLONIES/ML ESCHERICHIA COLI NO GROWTH LESS THAN 10,000 COLONIES/ML MIXED JALEN IMPRESSION and PLAN: 77 year old female s/p RUE fistulagram and TDC placement Ok to use the TDC for HD today Recommend using the TDC for the next month to allow the fistula to rest Follow-up with vascular surgery at [facility] for re-evaluation of the fistula Rest of are per primary team We will continue to be available to examine the patient as needed Ciro Herrera MD Vascular Surgery Fellow * Ancillary Progress Note - Dayna Weinstein, [employer] - 03/09/2023 9:04 AM EST PATIENT DRIVEN PROTOCOL - Respiratory Care Services [address] [phone] Name: Kami French [place] [facility] H874/[id number] Date: 03/09/2023 Time: 9:05 AM Patient Driven Protocol Summary: Initial evaluation performed. This Treatment Plan and medications will be reviewed by the Primary Care Team for any contraindications. Respiratory Care Treatment Plan Aerosol Therapy Treatment:: Inhaler(s) QDAY with Breo Ellipta (Fluticasone furoate 200 mcg and Vilanterol 25 mcg inhalation powder) / 1 inhalation . to reduce work of breathing and improve pulmonary gas exchange and suppress bronchial inflammation and edema by the use of systemic steroid sparing therapy. Additional Aerosolized Treatments: Hand Held Nebulizer Tx PRN with Albuterol Sulfate: Unit dose 0.083%. to reduce work of breathing and improve pulmonary gas exchange. . Respiratory Mechanics: In-check Dial Measurements The patient will be re-evaluated: No re-evaluation needed. Indications for treatment met. The Triage Level is: (Assessment Score = 6 -10) Level 4. Triage Level Definitions: Level 1 Severe Respiratory/Airway Compromise Level 2 Moderate Respiratory/Airway Compromise or high risk for pulmonary complications Level 3 Mild Respiratory/Airway Compromise or moderate risk for pulmonary complications Level 4 Episodic Respiratory/Airway Compromise or low risk for pulmonary complications Level 5 No Respiratory/Airway Compromise Triage 1 Triage 2 Triage 3 Triage 4 Triage 5 greater than 20 16 - 20 11 - 15 6 - 10 0 - 5 Medical Record Assessment Clinical Findings Pulmonary Status: 3 - Pulm Impairment (acute or chronic) w/o exacerbation, or 1 - 2 rib fractures Surgical Status: 0 - No Surgical History Chest X-Ray: 0 - Not Performed or performed greater than 3 days ago Assessment Score: 3 Patient Assessment Clinical Findings Respiratory Pattern: 0 - RR 12 - 20; Patient only gets breathless with strenuous exercise. Breath Sounds: 2 - Diminished bilaterally Cough Effectiveness: 0 - Strong non-productive Sputum Production: 0 - No sputum production Level of Activity: 1 - Ambulatory with assist O2 needed to keep SpO2 greater than or equal to 92%: 1 - Oxygen 1-3 LPM or FiO2 less than 35% Assessment Score: 4 Total Assessment Score: 7 Breath Sounds: Inspiratory and expiratory clear and diminished bilaterally.. Cough and Sputum: An effective cough produced no sputum... CXR: not done. Vital Signs: Resp: 18 (03/09/23836) Pulse: 65 (03/09/23 0629) Temp: 36.8 C (98.2 F) (03/09/23836) BP: 123/56 (03/09/23836) SpO2: 97 % (03/09/23836) PFT: Minimal Predicted IC: L. In-check dial measurements: 37L/min. Patient unable to perform Inspiratory Capacity. Reason: . Primary Service: Med S. Admitting Diagnosis: Dialysis AV fistula malfunction (HCC) [T82.590A] Problem with dialysis access (HCC) [T82.898A] Pulmonary Diagnosis: COPD, Obesity, RENÉ, and Former smoker . Prescriptions/Home Medications/Durable Medical Equipment: Per Epic & a very little that I was able to obtain from patient - Nocturnal CPAP, O2 2LPM Continuous, QDay Breo, PRN Nebulizer - so I ordered PRN Albuterol. Recommended New home medications/durable medical equipment/outpatient pulmonary/sleep referral . * Hospital Course - Edgar Abdi CRNP - 03/09/2023 4:07 AM EST {Hospital Course documentation can easily be pulled into the Discharge Summary by documenting here and using the smartlink in the Discharge Summary template:20601} documented in this encounter Plan of Treatment Upcoming Encounters Date Type Department Care Team (Late st Contact Info) Description 03/19/2023 8:30 AM EST [facility] Visit [address] [place] [address] Howie Gilbert MD [address] [place] [address] [place] [phone] 03/25/2023 1:30 PM EST Scheduled Telephone [facility], [facility] [address] [place] [address] Bella Garcia, [address] [facility] [place] [address] 03/25/2023 2:00 PM EST Scheduled Telephone [facility], [facility] [address] [place] [address] Bella Garcia, [address] [facility] [place] [phone] 05/07/2023 2:20 PM EST Office Visit Family Medicine [address] [place] [phone] Vianca Kitchen MD [address] [place] [address] [place] [id number] 06/10/2023 3:00 PM EDT Laboratory Laboratory [address] [place] [phone] [facility] [address] [place] [address] 06/16/2023 2:30 PM EDT Office Visit Hematology/Oncology [place] [address] [place] [address] Cynthia Gonzalez MD [address] [place] [address] Scheduled Orders Name Type Priority Associated Diagnoses Orde r Schedule CULTURE, URINE, QUANTITATIVE Lab Routine One Time for 1 Occurrences starting 03/09/2023 until 03/09/2023 Scheduled Procedures Name Priority Associated Diagnoses Date/Ti [...] Procedure Name Priority Date/Time Associated Diagnosis Comments GLUCOSE METER, POINT OF CARE VETO 03/18/2023 11:48 AM EST GLUCOSE METER, POINT OF CARE VETO 03/18/2023 11:09 AM EST CBC Routine 03/18/2023 8:22 AM EST RENAL FUNCTION PANEL STAT 03/18/2023 8:00 AM EST GLUCOSE METER, POINT OF CARE VETO 03/17/2023 9:00 PM EST GLUCOSE METER, POINT OF CARE [facility] 03/17/2023 5:04 PM EST GLUCOSE METER, POINT OF CARE [facility] 03/17/2023 11:26 AM EST GLUCOSE METER, POINT OF CARE [facility] 03/17/2023 6:42 AM EST GLUCOSE METER, POINT OF CARE [facility] 03/16/2023 8:49 PM EST GLUCOSE METER, POINT OF CARE [facility] 03/16/2023 5:17 PM EST GLUCOSE METER, POINT OF CARE [facility] 03/16/2023 11:10 AM EST HC ECG TRACING ONLY Routine 03/16/2023 8 :16 AM EST Bradycardia GLUCOSE METER, POINT OF CARE [facility] 03/16/2023 7:21 AM EST RENAL FUNCTION PANEL Routine 03/16/2023 5:05 AM EST GLUCOSE METER, POINT OF CARE [facility] 03/15/2023 8:25 PM EST GLUCOSE METER, POINT OF CARE [facility] 03/15/2023 3:33 PM EST GLUCOSE METER, POINT OF CARE [facility] 03/15/2023 11:26 AM EST GLUCOSE METER, POINT OF CARE [facility] 03/15/2023 8:17 AM EST GLUCOSE METER, POINT OF CARE VETO 03/15/2023 6:24 AM EST RENAL FUNCTION PANEL Routine 03/15/2023 5:56 AM EST GLUCOSE METER, POINT OF CARE [facility] 03/14/2023 8:56 PM EST GLUCOSE METER, POINT OF CARE VETO 03/14/2023 3:19 PM EST GLUCOSE METER, POINT OF CARE VETO 03/14/2023 11:17 AM EST GLUCOSE METER, POINT OF CARE VETO 03/14/2023 7:29 AM EST GLUCOSE METER, POINT OF CARE VETO 03/13/2023 8:54 PM EST GLUCOSE METER, POINT OF CARE VETO 03/13/2023 4:29 PM EST GLUCOSE METER, POINT OF CARE VETO 03/13/2023 12:24 PM EST RENAL FUNCTION PANEL Routine 03/13/2023 7:34 AM EST GLUCOSE METER, POINT OF CARE VETO 03/13/2023 7:09 AM EST GLUCOSE METER, POINT OF CARE [facility] 03/12/2023 9:11 PM EST GLUCOSE METER, POINT OF CARE VETO 03/12/2023 4:06 PM EST GLUCOSE METER, POINT OF CARE [facility] 03/12/2023 11:30 AM EST RENAL FUNCTION PANEL Routine 03/12/2023 8:31 AM EST GLUCOSE METER, POINT OF CARE VETO 03/12/2023 7:21 AM EST GLUCOSE METER, POINT OF CARE VETO 03/11/2023 8:21 PM EST GLUCOSE METER, POINT OF CARE VETO 03/11/2023 4:26 PM EST GLUCOSE METER, POINT OF CARE VETO 03/11/2023 11:34 AM EST BASIC METABOLIC PANEL STAT 03/11/2023 8:18 AM EST PHOSPHORUS Routine 03/11/2023 8:18 AM EST GLUCOSE METER, POINT OF CARE VETO 03/11/2023 6:43 AM EST CBC Routine 03/11/2023 5:23 AM EST GLUCOSE METER, POINT OF CARE VETO 03/10/2023 9:40 PM EST HEPATITIS C RNA ADD ON Routine 03/10/2023 8:20 PM EST HEPATITIS B SURFACE ANTIBODY Routine 03/10/2023 8:20 PM EST HEPATITIS C ANTIBODY SCREEN WITH PROGRESSION TO HEPATITIS C RNA QUANTITATIVE Routine 03/10/2023 8:20 PM EST HEPATITIS C ANTIBODY Routine 03/10/2023 8:20 PM EST HEPATITIS B CORE ANTIBODY IGM Routine 03/10/2023 8:20 PM EST HEPATITIS B CORE ANTIBODIES IGG AND IGM Routine 03/10/2023 8:20 PM EST HEPATITIS B SURFACE ANTIGEN Routine 03/10/2023 8:20 PM EST GLUCOSE METER, POINT OF CARE VETO 03/10/2023 4:42 PM EST GLUCOSE METER, POINT OF CARE VETO 03/10/2023 11:07 AM EST GLUCOSE METER, POINT OF CARE VETO 03/10/2023 7:19 AM EST BASIC METABOLIC PANEL Routine 03/10/2023 5:06 AM EST CBC Routine 03/10/2023 5:06 AM EST MAGNESIUM Routine 03/10/2023 5:06 AM EST GLUCOSE METER, POINT OF CARE VETO 03/09/2023 9:08 PM EST GLUCOSE METER, POINT OF CARE VETO 03/09/2023 4:18 PM EST VASC PROCEDURE IN VASCULAR ANGIO SUITE Routine 03/09/2023 2:45 PM EST INSER MARLI CAT,W/O PUMP;5YR/OLD 03/09/2023 12:20 PM EST ESRD (end stage renal disease) ([facility]) Intro Cath Dialysis Circuit W/Translum Balloon Angioplasty 03/09/2023 12:20 PM EST ESRD (end stage renal disease) ([facility]) GLUCOSE METER, POINT OF CARE VETO 03/09/2023 11:27 AM EST DIFFERENTIAL, AUTOMATED STAT 03/09/2023 10:49 AM EST BASIC METABOLIC PANEL STAT 03/09/2023 10:49 AM EST CBC STAT 03/09/2023 10:49 AM EST CBC STAT 03/09/2023 10:49 AM EST MAGNESIUM STAT 03/09/2023 10:49 AM EST GLUCOSE METER, POINT OF CARE VETO 03/09/2023 7:19 AM EST BNP (NT-PROBNP) Routine 03/09/2023 6:59 AM EST HEMOGLOBIN A1C Routine 03/09/2023 6:04 AM EST CBC Routine 03/09/2023 6:04 AM EST MRSA SCREEN, PCR Routine 03/09/2023 5:00 AM EST documented in this encounter Results * GLUCOSE METER, POINT OF CARE (03/18/2023 11:48 AM EST) Glucose Meter 78 70 - 120 mg/dL 03/18/2023 11:53 AM EST [facility] Blood Whole blood specimen / Unknown 03/18/2023 11:48 AM EST 03/18/2023 11:53 AM EST Leilani Johnson MD LAB POINT OF CARE TE ST DOCKED DEVICE UNSOLICITED RESULTS [facility] [address] [place] [address] * GLUCOSE METER, POINT OF CARE (03/18/2023 11:09 AM EST) Glucose Meter 94 70 - 120 mg/dL 03/18/2023 11:11 AM EST [facility] Blood Whole blood specimen / Unknown 03/18/2023 11:09 AM EST 03/18/2023 11:11 AM EST Leilani Johnson MD LAB POINT OF CARE TE ST DOCKED DEVICE UNSOLICITED RESULTS [facility] [address] [place] [address] * (ABNORMAL) CBC (03/18/2023 8:22 AM EST) WBC 7.72 4.00 - 10.80 K/uL 03/18/2023 8:43 AM EST [facility] RBC 3.16 3.85 - 5.15 M/uL 03/18/2023 8:43 AM EST [facility] HGB 9.1(L) 12.0 - 15.3 g/dL 03/18/2023 8:43 AM EST [facility] HCT 30.1(L) 36.0 - 45.2 % 03/18/2023 8:43 AM EST [facility] MCV 95.3 81.5 - 97.5 fL 03/18/2023 8:43 AM EST [facility] MCH 28.8 27.0 - 34.0 pg 03/18/2023 8:43 AM EST [facility] MCHC 30.2 32.0 - 36.0 g/dL 03/18/2023 8:43 AM EST [facility] RDW 16.7 11.5 - 15.5 % 03/18/2023 8:43 AM EST [facility] PLT 198 140 - 400 K/uL 03/18/2023 8:43 AM EST [facility] MPV 10.9 6.6 - 11.1 fL 03/18/2023 8:43 AM EST [facility] nRBCs 0 <=0 /100 WBCs 03/18/2023 8:43 AM EST LABORATORY GM Blood Venous blood specimen / Unknown Venipuncture / Unknown 03/18/2023 8:22 AM EST 03/18/2023 8:32 AM EST Leilani Johnson MD LAB BLOOD ORDERABLES [facility] [address] [place] [address] * (ABNORMAL) RENAL FUNCTION PANEL (03/18/2023 8:00 AM EST) BUN 45(H) 6 - 20 mg/dL 03/18/2023 9:05 AM EST [facility] Creatinine 9.2(H) 0.5 - 1.0 mg/dL 03/18/2023 9:05 AM EST [facility] Comment:Results rechecked. Estimated Glomerular Filtration Rate 4(L) >=60 mL/min 03/18/2023 9:05 AM EST [facility] Comment:eGFR is calculated b ased on the CKD-EPI 2020 equation Sodium 131(L) 135 - 146 mmol/L 03/18/2023 9:05 AM EST [facility] Potassium 4.6 3.5 - 5.1 mmol/L 03/18/2023 9:05 AM EST [facility] Chloride 92(L) 98 - 107 mmol/L 03/18/2023 9:05 AM EST [facility] CO2 22 22 - 32 mmol/L 03/18/2023 9:05 AM EST [facility] Anion Gap 17(H) 7 - 15 mmol/L 03/18/2023 9:05 AM EST [facility] Glucose 95 70 - 120 mg/dL 03/18/2023 9:05 AM EST [facility] Calcium 8.7 8.4 - 10.2 mg/dL 03/18/2023 9:05 AM EST [facility] Albumin 3.7(L) 3.8 - 5.0 g/dL 03/18/2023 9:05 AM EST [facility] Phosphorus 8.4(H) 2.5 - 4.8 mg/dL 03/18/2023 9:05 AM EST [facility] Comment:Results rechecked. Blood Venous blood specimen / Unknown Venipuncture / Unknown 03/18/2023 8:00 AM EST 03/18/2023 8:13 AM EST Ciro Sanches MD LAB BLOOD ORD ERABLES LABORATORY [facility] [address] [place] [address] * (ABNORMAL) GLUCOSE METER, POINT OF CARE (03/17/2023 9:00 PM EST) Glucose Meter 121(H) 70 - 120 mg/dL 03/17/2023 9:10 PM EST [facility] Blood Whole blood specimen / Unknown 03/17/2023 9:00 PM EST 03/17/2023 9:10 PM EST Leilani Johnson MD LAB POINT OF CARE TE ST DOCKED DEVICE UNSOLICITED RESULTS Performing Organization Address City/[facility]/ZIP Co de Phone Number [facility] [address] [place] [address] * (ABNORMAL) GLUCOSE METER, POINT OF CARE (03/17/2023 5:04 PM EST) Glucose Meter 121(H) 70 - 120 mg/dL 03/17/2023 5:23 PM EST [place] Blood Whole blood specimen / Unknown 03/17/2023 5:04 PM EST 03/17/2023 5:23 PM EST eLilani Johnson MD LAB POINT OF CARE TE ST DOCKED DEVICE UNSOLICITED RESULTS [facility] [address] [place] [address] * GLUCOSE METER, POINT OF CARE (03/17/2023 11:26 AM EST) Glucose Meter 112 70 - 120 mg/dL 03/18/2023 1:49 AM EST [facility] Blood Whole blood specimen / Unknown 03/17/2023 11:26 AM EST 03/18/2023 1:49 AM EST Leilani Johnson MD LAB POINT OF CARE TE ST DOCKED DEVICE UNSOLICITED RESULTS [facility] [address] [place] [address] * GLUCOSE METER, POINT OF CARE (03/17/2023 6:42 AM EST) Glucose Meter 94 70 - 120 mg/dL 03/17/2023 6:51 AM EST [place] Blood Whole blood specimen / Unknown 03/17/2023 6:42 AM EST 03/17/2023 6:51 AM EST Leilani Johnson MD LAB POINT OF CARE TE ST DOCKED DEVICE UNSOLICITED RESULTS [facility] [address] [place] [address] * (ABNORMAL) GLUCOSE METER, POINT OF CARE (03/16/2023 8:49 PM EST) Glucose Meter 134(H) 70 - 120 mg/dL 03/17/2023 1:29 AM EST [place] Blood Whole blood specimen / Unknown 03/16/2023 8:49 PM EST 03/17/2023 1:29 AM EST Leilani Johnson MD LAB POINT OF CARE TE ST DOCKED DEVICE UNSOLICITED RESULTS [facility] [address] [place] [address] * GLUCOSE METER, POINT OF CARE (03/16/2023 5:17 PM EST) Glucose Meter 107 70 - 120 mg/dL 03/16/2023 5:22 PM EST [facility] Blood Whole blood specimen / Unknown 03/16/2023 5:17 PM EST 03/16/2023 5:22 PM EST Leilani Johnson MD LAB POINT OF CARE TE ST DOCKED DEVICE UNSOLICITED RESULTS Performing Organization Address City/[facility] Co de Phone Number [facility] [address] [place] [address] * (ABNORMAL) GLUCOSE METER, POINT OF CARE (03/16/2023 11:10 AM EST) Glucose Meter 129(H) 70 - 120 mg/dL 03/16/2023 12:05 PM EST [employer] [facility] Blood Whole blood specimen / Unknown 03/16/2023 11:10 AM EST 03/16/2023 12:05 PM EST Leilani Johnson MD LAB POINT OF CARE TE ST DOCKED DEVICE UNSOLICITED RESULTS Performing Organization Address [facility] Co de Phone Number [address] [address] * EKG (03/16/2023 8:16 AM EST) 03/16/2023 8:16 AM EST Narrative Procedure Note Miguel Jackson MD - 03/16/2023 8:16 AM EST REASON FOR STUDY: bradycardia CONCLUSIONS: Sinus bradycardia Left bundle branch block When compared with ECG of 09-DEC-2022 10:27, Premature atrial complexes are no longer Present T wave inversion no longer evident in Inferior leads Ventricular Rate: 53 Atrial Rate: 53 WI Interval: 206 QRS Duration: 150 QT/QTc: 510/478 ms P-R-T [place]: 35 : 90 : 55 degrees Leilani Johnson MD EKG [facility] CARDIOLOG[facility] * GLUCOSE METER, POINT OF CARE (03/16/2023 7:21 AM EST) Glucose Meter 111 70 - 120 mg/dL 03/16/2023 8:00 AM EST [facility] Blood Whole blood specimen / Unknown 03/16/2023 7:21 AM EST 03/16/2023 8:00 AM EST Leilani Johnson MD LAB POINT OF CARE TE ST DOCKED DEVICE UNSOLICITED RESULTS [facility] [address] [place] [address] * (ABNORMAL) RENAL FUNCTION PANEL (03/16/2023 5:05 AM EST) BUN 18 6 - 20 mg/dL 03/16/2023 6:01 AM EST [facility] Creatinine 5.7(H) 0.5 - 1.0 mg/dL 03/16/2023 6:01 AM EST [facility] Estimated Glomerular Filtration Rate 7(L) >=60 mL/min 03/16/2023 6:01 AM EST [facility] Comment:eGFR is calculated b ased on the CKD-EPI 2020 equation Sodium 134(L) 135 - 146 mmol/L 03/16/2023 6:01 AM EST [facility] Potassium 3.8 3.5 - 5.1 mmol/L 03/16/2023 6:01 AM EST [facility] Chloride 96(L) 98 - 107 mmol/L 03/16/2023 6:01 AM EST [facility] CO2 26 22 - 32 mmol/L 03/16/2023 6:01 AM EST [facility] Anion Gap 12 7 - 15 mmol/L 03/16/2023 6:01 AM EST [facility] Glucose 105 70 - 120 mg/dL 03/16/2023 6:01 AM EST [facility] Calcium 8.8 8.4 - 10.2 mg/dL 03/16/2023 6:01 AM EST [facility] Albumin 3.7(L) 3.8 - 5.0 g/dL 03/16/2023 6:01 AM EST [facility] Phosphorus 5.0(H) 2.5 - 4.8 mg/dL 03/16/2023 6:01 AM EST LABORATORY [facility] Blood Venous blood specimen / Unknown Venipuncture / Unknown 03/16/2023 5:05 AM EST 03/16/2023 5:26 AM EST Leilani Johnson MD LAB BLOOD ORDERABLES LABORATORY [facility] [address] [place] [address] * GLUCOSE METER, POINT OF CARE (03/15/2023 8:25 PM EST) Glucose Meter 113 70 - 120 mg/dL 03/15/2023 8:36 PM EST [place] Blood Whole blood specimen / Unknown 03/15/2023 8:25 PM EST 03/15/2023 8:36 PM EST Leilani Johnson MD LAB POINT OF CARE TE ST DOCKED DEVICE UNSOLICITED RESULTS Performing Organization Address City/[facility] Co de Phone Number [facility] [address] [place] [address] * (ABNORMAL) GLUCOSE METER, POINT OF CARE (03/15/2023 3:33 PM EST) Glucose Meter 144(H) 70 - 120 mg/dL 03/16/2023 1:42 AM EST [place] Blood Whole blood specimen / Unknown 03/15/2023 3:33 PM EST 03/16/2023 1:41 AM EST Leilani Johnson MD LAB POINT OF CARE TE ST DOCKED DEVICE UNSOLICITED RESULTS Performing Organization Address City/[facility]/ZIP Co de Phone Number [facility] [address] [place] [address] * GLUCOSE METER, POINT OF CARE (03/15/2023 11:26 AM EST) Glucose Meter 99 70 - 120 mg/dL 03/15/2023 12:00 PM EST [place] Blood Whole blood specimen / Unknown 03/15/2023 11:26 AM EST 03/15/2023 12:00 PM EST Leilani Johnson MD LAB POINT OF CARE TE ST DOCKED DEVICE UNSOLICITED RESULTS [facility] [address] [place] [address] * GLUCOSE METER, POINT OF CARE (03/15/2023 8:17 AM EST) Glucose Meter 100 70 - 120 mg/dL 03/15/2023 8:22 AM EST [place] Blood Whole blood specimen / Unknown 03/15/2023 8:17 AM EST 03/15/2023 8:22 AM EST Leilani Johnson MD LAB POINT OF CARE TE ST DOCKED DEVICE UNSOLICITED RESULTS [facility] [address] [place] [address] * GLUCOSE METER, POINT OF CARE (03/15/2023 6:24 AM EST) Glucose Meter 120 70 - 120 mg/dL 03/15/2023 4:23 PM EST [place] Blood Whole blood specimen / Unknown 03/15/2023 6:24 AM EST 03/15/2023 4:23 PM EST Leilani Johnson MD LAB POINT OF CARE TE ST DOCKED DEVICE UNSOLICITED RESULTS [facility] [address] [place] [address] * (ABNORMAL) RENAL FUNCTION PANEL (03/15/2023 5:56 AM EST) BUN 27(H) 6 - 20 mg/dL 03/15/2023 6:42 AM EST [facility] Creatinine 7.9(H) 0.5 - 1.0 mg/dL 03/15/2023 6:42 AM EST [facility] Estimated Glomerular Filtration Rate 5(L) >=60 mL/min 03/15/2023 6:42 AM EST [facility] Comment:eGFR is calculated b ased on the CKD-EPI 2020 equation Sodium 136 135 - 146 mmol/L 03/15/2023 6:42 AM EST [facility] Potassium 3.4(L) 3.5 - 5.1 mmol/L 03/15/2023 6:42 AM EST [facility] Chloride 97(L) 98 - 107 mmol/L 03/15/2023 6:42 AM EST [facility] CO2 24 22 - 32 mmol/L 03/15/2023 6:42 AM EST [facility] Anion Gap 15 7 - 15 mmol/L 03/15/2023 6:42 AM EST [facility] Glucose 115 70 - 120 mg/dL 03/15/2023 6:42 AM EST [facility] Calcium 8.5 8.4 - 10.2 mg/dL 03/15/2023 6:42 AM EST [facility] Albumin 3.4(L) 3.8 - 5.0 g/dL 03/15/2023 6:42 AM EST [facility] Phosphorus 6.7(H) 2.5 - 4.8 mg/dL 03/15/2023 6:42 AM EST [facility] Blood Venous blood specimen / Unknown Venipuncture / Unknown 03/15/2023 5:56 AM EST 03/15/2023 6:08 AM EST Leilani Johnson MD LAB BLOOD ORDERABLES [facility] [address] [place] [address] * GLUCOSE METER, POINT OF CARE (03/14/2023 8:56 PM EST) [facility] Glucose Meter 118 70 - 120 mg/dL 03/15/2023 1:12 AM EST [facility] Blood Whole blood specimen / Unknown 03/14/2023 8:56 PM EST 03/15/2023 1:12 AM EST Leilani Johnson MD LAB POINT OF CARE TE ST DOCKED DEVICE UNSOLICITED RESULTS [facility] [address] [place] [address] * (ABNORMAL) GLUCOSE METER, POINT OF CARE (03/14/2023 3:19 PM EST) Glucose Meter 133(H) 70 - 120 mg/dL 03/14/2023 4:36 PM EST [facility] Blood Whole blood specimen / Unknown 03/14/2023 3:19 PM EST 03/14/2023 4:36 PM EST Leilani Johnson MD LAB POINT OF CARE TE ST DOCKED DEVICE UNSOLICITED RESULTS [facility] [address] [place] [address] * (ABNORMAL) GLUCOSE METER, POINT OF CARE (03/14/2023 11:17 AM EST) Glucose Meter 128(H) 70 - 120 mg/dL 03/14/2023 11:43 AM EST [facility] Blood Whole blood specimen / Unknown 03/14/2023 11:17 AM EST 03/14/2023 11:43 AM EST Leilani Johnson MD LAB POINT OF CARE TE ST DOCKED DEVICE UNSOLICITED RESULTS [facility] [address] [place] [address] * GLUCOSE METER, POINT OF CARE (03/14/2023 7:29 AM EST) Glucose Meter 103 70 - 120 mg/dL 03/14/2023 8:26 AM EST [facility] Blood Whole blood specimen / Unknown 03/14/2023 7:29 AM EST 03/14/2023 8:26 AM EST Leilani Johnson MD LAB POINT OF CARE TE ST DOCKED DEVICE UNSOLICITED RESULTS [facility] [address] [place] [address] * (ABNORMAL) GLUCOSE METER, POINT OF CARE (03/13/2023 8:54 PM EST) Glucose Meter 134(H) 70 - 120 mg/dL 03/13/2023 9:04 PM EST [facility] Blood Whole blood specimen / Unknown 03/13/2023 8:54 PM EST 03/13/2023 9:03 PM EST Leilani Johnson MD LAB POINT OF CARE TE ST DOCKED DEVICE UNSOLICITED RESULTS Performing Organization Address City/[facility]/ZIP Co de Phone Number [facility] [address] [place] [address] * GLUCOSE METER, POINT OF CARE (03/13/2023 4:29 PM EST) Glucose Meter 101 70 - 120 mg/dL 03/13/2023 4:45 PM EST [facility] Blood Whole blood specimen / Unknown 03/13/2023 4:29 PM EST 03/13/2023 4:45 PM EST Leilani Johnson MD LAB POINT OF CARE TE ST DOCKED DEVICE UNSOLICITED RESULTS Performing Organization Address City/[facility]/ZIP Co de Phone Number [facility] [address] [place] [address] * GLUCOSE METER, POINT OF CARE (03/13/2023 12:24 PM EST) Glucose Meter 81 70 - 120 mg/dL 03/13/2023 12:32 PM EST [facility] Blood Whole blood specimen / Unknown 03/13/2023 12:24 PM EST 03/13/2023 12:32 PM EST Leilani Johnson MD LAB POINT OF CARE TE ST DOCKED DEVICE UNSOLICITED RESULTS [facility] [address] [place] [address] * (ABNORMAL) RENAL FUNCTION PANEL (03/13/2023 7:34 AM EST) BUN 34(H) 6 - 20 mg/dL 03/13/2023 8:27 AM EST [facility] Creatinine 9.3(H) 0.5 - 1.0 mg/dL 03/13/2023 8:27 AM EST [facility] Estimated Glomerular Filtration Rate 4(L) >=60 mL/min 03/13/2023 8:27 AM EST [facility] Comment:eGFR is calculated b ased on the CKD-EPI 2020 equation Sodium 134(L) 135 - 146 mmol/L 03/13/2023 8:27 AM EST [facility] Potassium 3.6 3.5 - 5.1 mmol/L 03/13/2023 8:27 AM EST [facility] Chloride 94(L) 98 - 107 mmol/L 03/13/2023 8:27 AM EST [facility] CO2 24 22 - 32 mmol/L 03/13/2023 8:27 AM EST [facility] Anion Gap 16(H) 7 - 15 mmol/L 03/13/2023 8:27 AM EST [facility] Glucose 96 70 - 120 mg/dL 03/13/2023 8:27 AM EST [facility] Calcium 8.3(L) 8.4 - 10.2 mg/dL 03/13/2023 8:27 AM EST [facility] Albumin 3.6(L) 3.8 - 5.0 g/dL 03/13/2023 8:27 AM EST [facility] Phosphorus 7.4(H) 2.5 - 4.8 mg/dL 03/13/2023 8:27 AM EST [facility] Blood Venous blood specimen / Unknown Venipuncture / Unknown 03/13/2023 7:34 AM EST 03/13/2023 7:45 AM EST Inga Parmar MD LAB BLOOD ORDERABLES [facility] [address], [place] [id number] * GLUCOSE METER, POINT OF CARE (03/13/2023 7:09 AM EST) Glucose Meter 94 70 - 120 mg/dL 03/13/2023 7:19 AM EST [facility] Blood Whole blood specimen / Unknown 03/13/2023 7:09 AM EST 03/13/2023 7:19 AM EST Leilani Johnson MD LAB POINT OF CARE TE ST DOCKED DEVICE UNSOLICITED RESULTS [facility] [address] [place] [address] * (ABNORMAL) GLUCOSE METER, POINT OF CARE (03/12/2023 9:11 PM EST) Glucose Meter 123(H) 70 - 120 mg/dL 03/12/2023 9:19 PM EST [facility] Blood Whole blood specimen / Unknown 03/12/2023 9:11 PM EST 03/12/2023 9:19 PM EST Leilani Johnson MD LAB POINT OF CARE TE ST DOCKED DEVICE UNSOLICITED RESULTS Performing Organization Address City/[facility]/ZIP Co de Phone Number [facility] [address] [place] [address] * (ABNORMAL) GLUCOSE METER, POINT OF CARE (03/12/2023 4:06 PM EST) Glucose Meter 125(H) 70 - 120 mg/dL 03/12/2023 4:50 PM EST [facility] Blood Whole blood specimen / Unknown 03/12/2023 4:06 PM EST 03/12/2023 4:50 PM EST Leilani Johnson MD LAB POINT OF CARE TE ST DOCKED DEVICE UNSOLICITED RESULTS Performing Organization Address City/[facility]/ZIP Co de Phone Number [facility] [address] [place] [address] * (ABNORMAL) GLUCOSE METER, POINT OF CARE (03/12/2023 11:30 AM EST) Glucose Meter 127(H) 70 - 120 mg/dL 03/12/2023 11:57 AM EST [facility] Blood Whole blood specimen / Unknown 03/12/2023 11:30 AM EST 03/12/2023 11:57 AM EST Leilani Johnson MD LAB POINT OF CARE TE ST DOCKED DEVICE UNSOLICITED RESULTS [facility] [address] [place] [address] * (ABNORMAL) RENAL FUNCTION PANEL (03/12/2023 8:31 AM EST) BUN 25(H) 6 - 20 mg/dL 03/12/2023 9:37 AM EST [facility] Creatinine 7.1(H) 0.5 - 1.0 mg/dL 03/12/2023 9:37 AM EST [facility] Estimated Glomerular Filtration Rate 6(L) >=60 mL/min 03/12/2023 9:37 AM EST [facility] Comment:eGFR is calculated b ased on the CKD-EPI 2020 equation Sodium 135 135 - 146 mmol/L 03/12/2023 9:37 AM EST [facility] Potassium 3.6 3.5 - 5.1 mmol/L 03/12/2023 9:37 AM EST [facility] Chloride 96(L) 98 - 107 mmol/L 03/12/2023 9:37 AM EST [facility] CO2 26 22 - 32 mmol/L 03/12/2023 9:37 AM EST [facility] Anion Gap 13 7 - 15 mmol/L 03/12/2023 9:37 AM EST [facility] Glucose 94 70 - 120 mg/dL 03/12/2023 9:37 AM EST [facility] Calcium 8.7 8.4 - 10.2 mg/dL 03/12/2023 9:37 AM EST [facility] Albumin 3.5(L) 3.8 - 5.0 g/dL 03/12/2023 9:37 AM EST [facility] Phosphorus 5.7(H) 2.5 - 4.8 mg/dL 03/12/2023 9:37 AM EST LABORATORY [facility] Blood Venous blood specimen / Unknown Venipuncture / Unknown 03/12/2023 8:31 AM EST 03/12/2023 9:04 AM EST Leilani Johnson MD LAB BLOOD ORDERABLES LABORATORY [facility] [address] [place] [address] * GLUCOSE METER, POINT OF CARE (03/12/2023 7:21 AM EST) Glucose Meter 97 70 - 120 mg/dL 03/12/2023 9:17 AM EST [facility] Blood Whole blood specimen / Unknown 03/12/2023 7:21 AM EST 03/12/2023 9:17 AM EST Leilani Johnson MD LAB POINT OF CARE TE ST DOCKED DEVICE UNSOLICITED RESULTS Performing Organization Address City/[facility] Co de Phone Number [facility] [address] [place] [address] * (ABNORMAL) GLUCOSE METER, POINT OF CARE (03/11/2023 8:21 PM EST) Glucose Meter 123(H) 70 - 120 mg/dL 03/11/2023 8:24 PM EST [facility] Blood Whole blood specimen / Unknown 03/11/2023 8:21 PM EST 03/11/2023 8:24 PM EST Vidhi Laguerre MD LAB POINT OF CARE TE ST DOCKED DEVICE UNSOLICITED RESULTS Performing Organization Address City/[facility]/ZIP Co de Phone Number [facility] [address] [place] [address] * GLUCOSE METER, POINT OF CARE (03/11/2023 4:26 PM EST) Glucose Meter 89 70 - 120 mg/dL 03/11/2023 8:18 PM EST [facility] Blood Whole blood specimen / Unknown 03/11/2023 4:26 PM EST 03/11/2023 8:18 PM EST Vidhi Laguerre MD LAB POINT OF CARE TE ST DOCKED DEVICE UNSOLICITED RESULTS [facility] [address] [place] [address] * (ABNORMAL) GLUCOSE METER, POINT OF CARE (03/11/2023 11:34 AM EST) Glucose Meter 147(H) 70 - 120 mg/dL 03/11/2023 11:48 AM EST [facility] Blood Whole blood specimen / Unknown 03/11/2023 11:34 AM EST 03/11/2023 11:48 AM EST Vidhi Laguerre MD LAB POINT OF CARE TE ST DOCKED DEVICE UNSOLICITED RESULTS Performing Organization Address [facility] Co de Phone Number [facility] [address] [place] [address] * (ABNORMAL) PHOSPHORUS (03/11/2023 8:18 AM EST) Phosphorus 9.9(H) 2.5 - 4.8 mg/dL 03/11/2023 9:03 AM EST [facility] Blood Venous blood specimen / Unknown Venipuncture / Unknown 03/11/2023 8:18 AM EST 03/11/2023 8:28 AM EST Vidhi Laguerre MD LAB BLOOD ORDERABLES [facility] [address] [place] [address] * (ABNORMAL) BASIC METABOLIC PANEL (03/11/2023 8:18 AM EST) BUN 63(H) 6 - 20 mg/dL 03/11/2023 9:03 AM EST [facility] Creatinine 12.6(H) 0.5 - 1.0 mg/dL 03/11/2023 9:03 AM EST [facility] Estimated Glomerular Filtration Rate 3(L) >=60 mL/min 03/11/2023 9:03 AM EST [facility] Comment:eGFR is calculated b ased on the CKD-EPI 2020 equation Sodium 137 135 - 146 mmol/L 03/11/2023 9:03 AM EST [facility] Potassium 4.1 3.5 - 5.1 mmol/L 03/11/2023 9:03 AM EST [facility] Chloride 97(L) 98 - 107 mmol/L 03/11/2023 9:03 AM EST [facility] CO2 20(L) 22 - 32 mmol/L 03/11/2023 9:03 AM EST [facility] Anion Gap 20(H) 7 - 15 mmol/L 03/11/2023 9:03 AM EST [facility] Glucose 103 70 - 120 mg/dL 03/11/2023 9:03 AM EST [facility] Calcium 8.2(L) 8.4 - 10.2 mg/dL 03/11/2023 9:03 AM EST [facility] Blood Venous blood specimen / Unknown Venipuncture / Unknown 03/11/2023 8:18 AM EST 03/11/2023 8:28 AM EST Vidhi Laguerre MD LAB BLOOD ORDERABLES [facility] [address] [place] [address] * GLUCOSE METER, POINT OF CARE (03/11/2023 6:43 AM EST) Glucose Meter 101 70 - 120 mg/dL 03/11/2023 6:45 AM EST [facility] Blood Whole blood specimen / Unknown 03/11/2023 6:43 AM EST 03/11/2023 6:45 AM EST Vidhi Laguerre MD LAB POINT OF CARE TE ST DOCKED DEVICE UNSOLICITED RESULTS [facility] [address] [place] [address] * (ABNORMAL) CBC (03/11/2023 5:23 AM EST) WBC 7.49 4.00 - 10.80 K/uL 03/11/2023 5:51 AM EST [facility] RBC 2.95 3.85 - 5.15 M/uL 03/11/2023 5:51 AM EST [facility] HGB 8.6(L) 12.0 - 15.3 g/dL 03/11/2023 5:51 AM EST [facility] HCT 29.1(L) 36.0 - 45.2 % 03/11/2023 5:51 AM EST [facility] MCV 98.6 81.5 - 97.5 fL 03/11/2023 5:51 AM EST [facility] MCH 29.2 27.0 - 34.0 pg 03/11/2023 5:51 AM EST [facility] MCHC 29.6 32.0 - 36.0 g/dL 03/11/2023 5:51 AM EST [facility] RDW 17.4 11.5 - 15.5 % 03/11/2023 5:51 AM EST [facility] PLT 214 140 - 400 K/uL 03/11/2023 5:51 AM EST [facility] MPV 10.3 6.6 - 11.1 fL 03/11/2023 5:51 AM EST [facility] nRBCs 0 <=0 /100 WBCs 03/11/2023 5:51 AM EST [facility] Blood Venous blood specimen / Unknown Venipuncture / Unknown 03/11/2023 5:23 AM EST 03/11/2023 5:37 AM EST Edgar PETERSEN LAB BLOOD ORDERABL ES LAB[facility] [address] [place] [address] * (ABNORMAL) GLUCOSE METER, POINT OF CARE (03/10/2023 9:40 PM EST) Glucose Meter 122(H) 70 - 120 mg/dL 03/11/2023 2:12 AM EST [facility] Blood Whole blood specimen / Unknown 03/10/2023 9:40 PM EST 03/11/2023 2:11 AM EST Vidhi Laguerre MD LAB POINT OF CARE TE ST DOCKED DEVICE UNSOLICITED RESULTS [facility] [address] [place] [address] * HEPATITIS C RNA ADD ON (03/10/2023 8:20 PM EST) Blood Venous blood specimen / Unknown Venipuncture / Unknown 03/10/2023 8:20 PM EST 03/10/2023 8:35 PM EST Alen Corbett PA-C LAB BLOOD ORDER [facility] [address] [place] [address] * HEPATITIS C ANTIBODY (03/10/2023 8:20 PM EST) Hepatitis C Antibody Negative Negative 03/10/2023 9:22 PM EST LABORATORY [facility] Comment:Further HCV quantita tive testing not performed per protocol. Blood Venous blood specimen / Unknown Venipuncture / Unknown 03/10/2023 8:20 PM EST 03/10/2023 8:35 PM EST Alen Corbett PA-C LAB BLOOD ORDER [facility] [address] [place] [address] * HEPATITIS B CORE ANTIBODIES IGG AND IGM (03/10/2023 8:20 PM EST) Hepatitis B Core Antibodies IgG and IgM Negative Negative 03/10/2023 9:22 PM EST LABORATORY [facility] Blood Venous blood specimen / Unknown Venipuncture / Unknown 03/10/2023 8:20 PM EST 03/10/2023 8:35 PM EST Alen Corbett PA-C LAB BLOOD ORDER [facility] [address] [place] [address] * HEPATITIS B CORE ANTIBODY IGM (03/10/2023 8:20 PM EST) Pathologist [facility] Hepatitis B Core Antibody IgM Negative Negative 03/10/2023 9:22 PM EST LABORATORY [facility] Blood Venous blood specimen / Unknown Venipuncture / Unknown 03/10/2023 8:20 PM EST 03/10/2023 8:35 PM EST Alen Corbett PA-C LAB BLOOD ORDER [facility] [address] [place] [address] * HEPATITIS B SURFACE ANTIBODY (03/10/2023 8:20 PM EST) Pathologist [facility] Hepatitis B Surface Antibody, Quantitative 179.0 mIU/mL 03/10/2023 9:22 PM EST LABORATORY [facility] Hepatitis B Surface Antibody, Qualitative Positive 03/10/2023 9:22 PM EST LABORATORY [facility] Hepatitis B Surface Antibody, Interpretation Immune to Hepatitis B Virus 03/10/2023 9:22 PM EST LABORATORY [facility] Comment: POSITIVE: >=11.5 mIU/mL INDETERMINATE: 8.5-<11.5 mIU/mL NEGATIVE: <8.5 mIU/mL Blood Venous blood specimen / Unknown Venipuncture / Unknown 03/10/2023 8:20 PM EST 03/10/2023 8:35 PM EST Alen Corbett PA-C LAB BLOOD ORDER [facility] [address] [place] [address] * HEPATITIS B SURFACE ANTIGEN (03/10/2023 8:20 PM EST) Pathologist [facility] Hepatitis B Surface Antigen Negative Negative 03/10/2023 9:22 PM EST LABORATORY [facility] Blood Venous blood specimen / Unknown Venipuncture / Unknown 03/10/2023 8:20 PM EST 03/10/2023 8:35 PM EST Alen Corbett PA-C LAB BLOOD ORDER [facility] [address] [place] [address] * (ABNORMAL) GLUCOSE METER, POINT OF CARE (03/10/2023 4:42 PM EST) Glucose Meter 126(H) 70 - 120 mg/dL 03/10/2023 5:36 PM EST [facility] Blood Whole blood specimen / Unknown 03/10/2023 4:42 PM EST 03/10/2023 5:36 PM EST Vidhi Laguerre MD LAB POINT OF CARE TE ST DOCKED DEVICE UNSOLICITED RESULTS [facility] [address] [place] [address] * (ABNORMAL) GLUCOSE METER, POINT OF CARE (03/10/2023 11:07 AM EST) Glucose Meter 150(H) 70 - 120 mg/dL 03/10/2023 12:11 PM EST [facility] Blood Whole blood specimen / Unknown 03/10/2023 11:07 AM EST 03/10/2023 12:11 PM EST Vidhi Laguerre MD LAB POINT OF CARE TE ST DOCKED DEVICE UNSOLICITED RESULTS [facility] [address] [place] [address] * GLUCOSE METER, POINT OF CARE (03/10/2023 7:19 AM EST) Glucose Meter 103 70 - 120 mg/dL 03/10/2023 8:12 AM EST [facility] Blood Whole blood specimen / Unknown 03/10/2023 7:19 AM EST 03/10/2023 8:12 AM EST Vidhi Laguerre MD LAB POINT OF CARE TE ST DOCKED DEVICE UNSOLICITED RESULTS [facility] [address] [place] [address] * MAGNESIUM (03/10/2023 5:06 AM EST) Magnesium 2.5 1.5 - 2.6 mg/dL 03/10/2023 6:09 AM EST [facility] Blood Venous blood specimen / Unknown Venipuncture / Unknown 03/10/2023 5:06 AM EST 03/10/2023 5:37 AM EST Edgar BACANP LAB BLOOD ORDERABL ES Performing Organization Address City/[facility]/ZIP Co de Phone Number LABORATORY [facility] [address], [place] [id number] * (ABNORMAL) BASIC METABOLIC PANEL (03/10/2023 5:06 AM EST) BUN 54(H) 6 - 20 mg/dL 03/10/2023 6:09 AM EST [facility] Creatinine 11.6(H) 0.5 - 1.0 mg/dL 03/10/2023 6:09 AM EST [facility] Estimated Glomerular Filtration Rate 3(L) >=60 mL/min 03/10/2023 6:09 AM EST [facility] Comment:eGFR is calculated b ased on the CKD-EPI 2020 equation Sodium 141 135 - 146 mmol/L 03/10/2023 6:09 AM EST [facility] Potassium 4.2 3.5 - 5.1 mmol/L 03/10/2023 6:09 AM EST [facility] Chloride 101 98 - 107 mmol/L 03/10/2023 6:09 AM EST [facility] CO2 22 22 - 32 mmol/L 03/10/2023 6:09 AM EST [facility] Anion Gap 18(H) 7 - 15 mmol/L 03/10/2023 6:09 AM EST [facility] Glucose 100 70 - 120 mg/dL 03/10/2023 6:09 AM EST [facility] Calcium 9.0 8.4 - 10.2 mg/dL 03/10/2023 6:09 AM EST [facility] Blood Venous blood specimen / Unknown Venipuncture / Unknown 03/10/2023 5:06 AM EST 03/10/2023 5:37 AM EST Edgar PETERSEN LAB BLOOD ORDERABL ES [facility] [address] [place] [address] * (ABNORMAL) CBC (03/10/2023 5:06 AM EST) WBC 8.53 4.00 - 10.80 K/uL 03/10/2023 6:22 AM EST [facility] RBC 3.00 3.85 - 5.15 M/uL 03/10/2023 6:22 AM EST [facility] HGB 8.7(L) 12.0 - 15.3 g/dL 03/10/2023 6:22 AM EST [facility] HCT 30.3(L) 36.0 - 45.2 % 03/10/2023 6:22 AM EST [facility] MCV 101.0 81.5 - 97.5 fL 03/10/2023 6:22 AM EST [facility] MCH 29.0 27.0 - 34.0 pg 03/10/2023 6:22 AM EST [facility] MCHC 28.7 32.0 - 36.0 g/dL 03/10/2023 6:22 AM EST [facility] RDW 17.5 11.5 - 15.5 % 03/10/2023 6:22 AM EST [facility] PLT 244 140 - 400 K/uL 03/10/2023 6:22 AM EST [facility] MPV 10.5 6.6 - 11.1 fL 03/10/2023 6:22 AM EST [facility] nRBCs 0 <=0 /100 WBCs 03/10/2023 6:22 AM EST [facility] Blood Venous blood specimen / Unknown Venipuncture / Unknown 03/10/2023 5:06 AM EST 03/10/2023 5:37 AM EST Edgar PETERSEN LAB BLOOD ORDERABL ES LABORATORY [facility] [address] [place] [address] * (ABNORMAL) GLUCOSE METER, POINT OF CARE (03/09/2023 9:08 PM EST) Glucose Meter 148(H) 70 - 120 mg/dL 03/10/2023 1:55 AM EST [facility] Blood Whole blood specimen / Unknown 03/09/2023 9:08 PM EST 03/10/2023 1:55 AM EST Vidhi Laguerre MD LAB POINT OF CARE TE ST DOCKED DEVICE UNSOLICITED RESULTS [facility] [address] [place] [address] * GLUCOSE METER, POINT OF CARE (03/09/2023 4:18 PM EST) Glucose Meter 113 70 - 120 mg/dL 03/09/2023 4:20 PM EST [facility] Blood Whole blood specimen / Unknown 03/09/2023 4:18 PM EST 03/09/2023 4:20 PM EST Vidhi Laguerre MD LAB POINT OF CARE TE ST DOCKED DEVICE UNSOLICITED RESULTS Performing Organization Address City/[facility]/ZIP Co de Phone Number [facility] [address] [place] [address] * VASC PROCEDURE IN VASCULAR ANGIO SUITE (03/09/2023 2:45 PM EST) Narrative Scheduling, Silent - 03/09/2023 2:45 PM EST This procedure will not be read by a Radiologist. Please see operative note. Fred Brown MD RAD SPECIAL PROCED [facility] * GLUCOSE METER, POINT OF CARE (03/09/2023 11:27 AM EST) Glucose Meter 100 70 - 120 mg/dL 03/09/2023 12:14 PM EST [facility] Blood Whole blood specimen / Unknown 03/09/2023 11:27 AM EST 03/09/2023 12:14 PM EST Vidhi Laguerre MD LAB POINT OF CARE TE ST DOCKED DEVICE UNSOLICITED RESULTS [facility] [address] [place] [address] * (ABNORMAL) DIFFERENTIAL, AUTOMATED (03/09/2023 10:49 AM EST) WBC 8.26 4.00 - 10.80 K/uL 03/09/2023 11:00 AM EST [facility] Neutrophils % 70.5 40.0 - 75.0 % 03/09/2023 11:00 AM EST [facility] Lymphocytes % 11.3(L) 18.0 - 42.0 % 03/09/2023 11:00 AM EST [facility] Monocytes % 9.3 1.0 - 11.0 % 03/09/2023 11:00 AM EST [facility] Eosinophils % 5.4 0.0 - 6.0 % 03/09/2023 11:00 AM EST [facility] Basophils % 1.1 0.0 - 2.0 % 03/09/2023 11:00 AM EST [facility] Immature Granulocytes % 2.4(H) 0.0 - 2.0 % 03/09/2023 11:00 AM EST [facility] Absolute Neutrophils 5.82 1.80 - 7.70 K/uL 03/09/2023 11:00 AM EST [facility] Absolute Lymphocytes 0.93(L) 1.00 - 4.80 K/ul 03/09/2023 11:00 AM EST [facility] Absolute Monocytes 0.77 0.00 - 1.10 K/uL 03/09/2023 11:00 AM EST [facility] Absolute Eosinophils 0.45 0.00 - 0.70 K/uL 03/09/2023 11:00 AM EST [facility] Absolute Basophils 0.09 0.00 - 0.20 K/uL 03/09/2023 11:00 AM EST [facility] Absolute Immature Granulocytes 0.20 0.00 - 0.20 K/uL 03/09/2023 11:00 AM EST [facility] Blood Venous blood specimen / Unknown Venipuncture / Unknown 03/09/2023 10:49 AM EST 03/09/2023 10:53 AM EST Vidhi Laguerre MD LAB BLOOD ORDERABLES [facility] [address] [place] [address] * (ABNORMAL) CBC (03/09/2023 10:49 AM EST) WBC 8.26 4.00 - 10.80 K/uL 03/09/2023 11:00 AM EST [facility] RBC 3.20 3.85 - 5.15 M/uL 03/09/2023 11:00 AM EST [facility] HGB 9.5(L) 12.0 - 15.3 g/dL 03/09/2023 11:00 AM EST [facility] HCT 31.6(L) 36.0 - 45.2 % 03/09/2023 11:00 AM EST [facility] MCV 98.8 81.5 - 97.5 fL 03/09/2023 11:00 AM EST [facility] MCH 29.7 27.0 - 34.0 pg 03/09/2023 11:00 AM EST [facility] MCHC 30.1 32.0 - 36.0 g/dL 03/09/2023 11:00 AM EST [facility] RDW 17.7 11.5 - 15.5 % 03/09/2023 11:00 AM EST [facility] PLT 273 140 - 400 K/uL 03/09/2023 11:00 AM EST [facility] MPV 9.7 6.6 - 11.1 fL 03/09/2023 11:00 AM EST [facility] nRBCs 0 <=0 /100 WBCs 03/09/2023 11:00 AM EST [facility] Blood Venous blood specimen / Unknown Venipuncture / Unknown 03/09/2023 10:49 AM EST 03/09/2023 10:53 AM EST Vidhi Laguerre MD LAB BLOOD ORDERABLES [facility] [address] [place] [address] * MAGNESIUM (03/09/2023 10:49 AM EST) Magnesium 2.4 1.5 - 2.6 mg/dL 03/09/2023 11:20 AM EST [facility] Blood Venous blood specimen / Unknown Venipuncture / Unknown 03/09/2023 10:49 AM EST 03/09/2023 10:53 AM EST Vidhi Laguerre MD LAB BLOOD ORDERABLES LAB[facility]ATORY [facility] [address] [place] [address] * (ABNORMAL) BASIC METABOLIC PANEL (03/09/2023 10:49 AM EST) BUN 46(H) 6 - 20 mg/dL 03/09/2023 11:20 AM EST [facility] Creatinine 10.2(H) 0.5 - 1.0 mg/dL 03/09/2023 11:20 AM EST [facility] Estimated Glomerular Filtration Rate 4(L) >=60 mL/min 03/09/2023 11:20 AM EST [facility] Comment:eGFR is calculated b ased on the CKD-EPI 2020 equation Sodium 142 135 - 146 mmol/L 03/09/2023 11:20 AM EST [facility] Potassium 3.8 3.5 - 5.1 mmol/L 03/09/2023 11:20 AM EST [facility] Chloride 101 98 - 107 mmol/L 03/09/2023 11:20 AM EST [facility] CO2 23 22 - 32 mmol/L 03/09/2023 11:20 AM EST [facility] Anion Gap 18(H) 7 - 15 mmol/L 03/09/2023 11:20 AM EST [facility] Glucose 108 70 - 120 mg/dL 03/09/2023 11:20 AM EST [facility] Calcium 9.0 8.4 - 10.2 mg/dL 03/09/2023 11:20 AM EST [facility] Blood Venous blood specimen / Unknown Venipuncture / Unknown 03/09/2023 10:49 AM EST 03/09/2023 10:53 AM EST Vidhi Laguerre MD LAB BLOOD ORDERABLES LAB[facility]ATORY [facility] [address] [place] [address] * GLUCOSE METER, POINT OF CARE (03/09/2023 7:19 AM EST) Glucose Meter 109 70 - 120 mg/dL 03/09/2023 8:49 AM EST [facility] Blood Whole blood specimen / Unknown 03/09/2023 7:19 AM EST 03/09/2023 8:49 AM EST Vidhi Laguerre MD LAB POINT OF CARE TE ST DOCKED DEVICE UNSOLICITED RESULTS Performing Organization Address [facility] Co de Phone Number [facility] [address] [place] [address] * (ABNORMAL) BNP, NT-PRO (03/09/2023 6:59 AM EST) BNP, NT-Pro 31,444(H) <300 pg/mL 03/09/2023 7:43 AM EST [facility]ORY [facility] Blood Venous blood specimen / Unknown Venipuncture / Unknown 03/09/2023 6:59 AM EST 03/09/2023 7:18 AM EST Narrative LAB[facility]ATORY [facility] - 03/09/2023 7:43 AM EST Exclude Heart Failure: <300 pg/mL Diagnose Heart Failure: Age <50 yr: >450 pg/mL 50-75 yr: >900 pg/mL >75 yr: >1800 pg/mL GFR is 30-59 mL/min: >1200 pg/mL or Age-adjusted values GFR <30 mL/min: do not use, not reliable Prognostic threshold: 1000 pg/mL Edgar PETERSEN LAB BLOOD ORDERABL ES Performing Organization Address City/[facility]/ZIP Co de Phone Number LABORATORY [facility] [address] [place] [address] * HEMOGLOBIN A1C (03/09/2023 6:04 AM EST) Hemoglobin A1C 4.9 4.0 - 5.6 % 03/09/2023 12:07 PM EST [facility] Comment:The use of HbA1c to monitor glycemic status is based on normal hemoglobin and HbA composition. This test should not be used in patients with abnormal hemoglobin that affects the half life of the red blood cell or the in vivo glycation rates. Estimated Average Glucose 94 <126 mg/dL 03/09/2023 12:07 PM EST [facility] Blood Venous blood specimen / Unknown Venipuncture / Unknown 03/09/2023 6:04 AM EST 03/09/2023 6:44 AM EST Edgar PETERSEN LAB BLOOD ORDERABL ES LABORATORY [address] [place] [address] * (ABNORMAL) CBC (03/09/2023 6:04 AM EST) WBC 7.59 4.00 - 10.80 K/uL 03/09/2023 6:54 AM EST LABORATORY [facility] RBC 3.44 3.85 - 5.15 M/uL 03/09/2023 6:54 AM EST LABORATORY [facility] HGB 9.9(L) 12.0 - 15.3 g/dL 03/09/2023 6:54 AM EST LABORATORY [facility] HCT 34.6(L) 36.0 - 45.2 % 03/09/2023 6:54 AM EST LABORATORY [facility] MCV 100.6 81.5 - 97.5 fL 03/09/2023 6:54 AM EST LABORATORY [facility] MCH 28.8 27.0 - 34.0 pg 03/09/2023 6:54 AM EST LABORATORY [facility] MCHC 28.6 32.0 - 36.0 g/dL 03/09/2023 6:54 AM EST LABORATORY [facility] RDW 17.7 11.5 - 15.5 % 03/09/2023 6:54 AM EST LABORATORY [facility] PLT 284 140 - 400 K/uL 03/09/2023 6:54 AM EST LABORATORY [facility] MPV 10.4 6.6 - 11.1 fL 03/09/2023 6:54 AM EST LABORATORY [facility] nRBCs 0 <=0 /100 WBCs 03/09/2023 6:54 AM EST LABORATORY [facility] Blood Venous blood specimen / Unknown Venipuncture / Unknown 03/09/2023 6:04 AM EST 03/09/2023 6:44 AM EST Edgar PETERSEN LAB BLOOD ORDERABL ES Performing Organization Address [facility] Co de Phone Number LABORATORY [address] [address] * (ABNORMAL) MRSA SCREEN, PCR (03/09/2023 5:00 AM EST) [facility] MRSA PCR Result Positive( A) Negative 03/09/2023 8:52 AM EST LABORATORY [facility] Comment:Methicillin resistan t Staphylococcus aureus detected by PCR (amplified probe). MRSA-This patient may require isolation. Please refer to Infection Control isolation policy. Upper Respiratory (Nares, Bilateral) Non-blood Collection / Unknown 03/09/2023 5:00 AM EST 03/09/2023 5:15 AM EST Edgar PETERSEN LAB MICRO - GENERA L ORDERABLES Performing Organization Address [facility] de Phone Number LABORATORY [address] [address] documented in this encounter Visit Diagnoses Diagnosis Problem with dialysis access (HCC)- Primary Other and unspecified complications of medical care, not elsewhere classified Problem with dialysis access (HCC) Other and unspecified complications of medical care, not elsewhere classified Chest pain Chest pain, unspecified Stenosis of other vascular prosthetic devices, implants and grafts, initial encounter ([facility]) [T82.858A] Hypertensive heart and chronic kidney disease with heart failure and with stage 5 chronic kidney disease, or end stage renal disease (HCC) [I13.2] 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] Type II or unspecified type diabetes mellitus with renal manifestations, not stated as uncontrolled End stage renal disease (HCC) [N18.6] End stage renal disease Chronic combined systolic (congestive) and diastolic (congestive) heart failure ([facility]) [I50.42] Dependence on renal dialysis ([facility]) [Z99.2] Renal dialysis status Hemorrhoids, external without complications External hemorrhoids without mention of complication Bradycardia Other specified cardiac dysrhythmias Type 2 diabetes mellitus with hemoglobin A1c goal of less than 7.0% ([facility]) 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 factor ([facility]) Primary parkinsonism Paralysis agitans Hypertensive heart disease with combined systolic and diastolic heart failure and end stage chronic kidney disease on dialysis ([facility]) Diabetes mellitus with ESRD (end-stage renal disease) ([facility]) Type II or unspecified type diabetes mellitus with renal manifestations, not stated as uncontrolled 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[facility]) Hypothyroidism due to acquired atrophy of thyroid Dyslipidemia, goal LDL below 100 Other and unspecified hyperlipidemia AYSHA (generalized anxiety disorder) Generalized anxiety disorder RENÉ on CPAP Obstructive sleep apnea (adult) (pediatric) History of non-ST elevation myocardial infarction (NSTEMI) Old myocardial infarction COPD, group B, by GOLD 2017 classification ([facility]) Chronic heart failure with preserved ejection fraction ([facility]) Obesity Obesity, unspecified History of CVA (cerebrovascular accident) Transient ischemic attack (TIA), and cerebral infarction without residual deficits UTI (urinary tract infection) Urinary tract infection, site not specified ESRD (end stage renal disease) on dialysis ([facility]) End stage renal disease 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 Anemia in chronic kidney disease documented in this encounter Administered Medications Inactive Administered Medications - up to 3 most recent administrations Medication Order MAR Action Action Date Dose Rate Site Acetaminophen (Tylenol) tab 650 mg 650 mg, Oral, Q6H PRN Pain, Mild, Fever >38C(100.5F), Starting on 03/09/23 at 0410, Until Fri03/10/23 at 2026, Maximum of 4 grams (4000 mg) per day. Given 03/10/2023 2:53 PM EST 650 mg Acetaminophen (Tylenol) tab 650 mg 650 mg, Oral, Q4H PRN Pain, Mild, Fever >38C(100.5F), Pain, Moderate, Pain, Severe, Starting on 03/10/23 at 2030, Until Fri03/18/23 at 1826, Maximum of 4 grams (4000 mg) per day. Albuterol Sulfate (Proventil) (2.5 MG/3ML) 0.083% inhalation solution 2.5 mg 2.5 mg, Nebulizer, Q4H PRN Dyspnea, Starting on Fri03/09/23 at 0909, Until Fri03/18/23 at 1826 aspirin enteric coated tab 162 mg 162 mg, Oral, Daily(AM), First dose on Fri03/09/23 at 0900, Until Discontinued Given 03/18/2023 11:40 AM EST 162 mg Given 03/17/2023 8:21 AM EST 162 mg Given 03/16/2023 9:18 AM EST 162 mg atorvaSTATin (Lipitor) tab 80 mg 80 mg, Oral, Q1700, First dose on Fri03/09/23 at 1700, Until Discontinued Given 03/17/2023 3:41 PM EST 80 mg Given 03/16/2023 4:20 PM EST 80 mg Given 03/15/2023 5:30 PM EST 80 mg carbidopa-levodopa 25-100 mg per tab (Sinemet) 1 Tablet 1 Tablet, Oral, TID(AM/NOON/HS), First dose on Fri03/09/23 at 0600, Until Discontinued Given 03/18/2023 11:53 AM EST 1 Tablet Given 03/18/2023 5:51 AM EST 1 Tablet Given 03/17/2023 9:44 PM EST 1 Tablet cefTRIAXone in dextrose (Rocephin) IVPB 1 g IV Piggyback, 1 g, Q24H, 5 doses, First dose on Fri03/09/23 at 0700, Last dose on Fri03/13/23 at 0700, Administer over 30 Minutes New Bag 03/13/2023 5:33 AM EST 1 g 100 mL/hr New Bag 03/12/2023 6:17 AM EST 1 g 100 mL/hr New Bag 03/11/2023 6:24 AM EST 1 g 100 mL/hr chlorhexidine gluconate cloth 2 % pad External, [id number], First dose on Fri03/12/23 at 1045, Until Discontinued, Applied to appropriate patients per counter tacker's recommendations following daily care. May use more than one Pad (cloth/wipe) as needed to complete care. Given 03/18/2023 11:40 AM EST 1 Pad Given 03/17/2023 10:00 AM EST Given 03/16/2023 1:14 PM EST 1 Pad Epoetin Cy 2000 UNIT/ML inj 4,000 Units 4,000 Units, IV Push, ON DIALYSIS, Starting on Charley 03/13/23 at 0626, Until Fri03/13/23 at 0751, For 1 dose Given 03/13/2023 7:51 AM EST 4,000 Units fluticasone furoate-vilanterol (BREO ellipta) 200-25 MCG/ACT inhaler 1 Puff 1 Puff, Inhalation, RESPDAILY, First dose on Fri03/09/23 at 0800, Until Discontinued, NURSING TO FOLLOW PATIENT WITH MDI/DPI ADMINISTRATION Given 03/18/2023 11:49 AM EST 1 Puff Given 03/17/2023 8:23 AM EST 1 Puff Given 03/16/2023 9:19 AM EST 1 Puff hEParin 1000 UNIT/ML inj (dialysis orders only) Intravenous, ON DIALYSIS, Starting on Fri03/16/23 at 1053, Until Fri03/18/23 at 1826, For 7 days, Bolus: 1000 units To be given ONLY on dialysis only. Enter Date of Dialysis Rx:: 03/18/22 Given 03/18/2023 7:55 AM EST 1,000 Units hEParin 1000 UNIT/ML inj (dialysis orders only) Intravenous, ONCE, On Fri03/18/23 at 0000, For 1 dose, Maintenance: Drip: 500 Units/ Hr. Continue heparin until end of dialysis treatment Stop 1 hour before dialysis end in AVF/AVG. Continue through dialysis in CVC. The total delivered dose is approximately 2,500 to 5,000 units, based on weight and treatment duration assumptions. Given 03/18/2023 7:55 AM EST 500 Units hEParin inj 7,500 Units 7,500 Units, Subcutaneous, Q12H, First dose on 03/10/23 at 0900, Until Discontinued Given 03/18/2023 11:44 AM EST 7,500 Units Abdomen Left Lower Given 03/17/2023 8:39 AM EST 7,500 Units A bdomen Left Lower Given 03/16/2023 9:19 AM EST 7,500 Units A bdomen Left Lower insulin aspart (NovoLOG) inj Subcutaneous, WITH MEALS, First dose on Charley 03/13/23 at 1730, Until Discontinued, LOW DOSE (Elderly insulin sensitive patient): Sliding Scale Correctional insulin may be given if the patient is NPO. Dose based on standard build from Insulin Calculator. Do not modify insulin doses in administration instructions! , Glucose less than 70 instructions: Obtain STAT lab blood glucose and call covering provider., Glucose 80-150 (units): 0, Glucose 151-200 (units): 1, Glucose 201-250 (units): 2, Glucose 251-300 (units): 3, Glucose greater than 300 (units): 4, Glucose greater than 300 instructions: Give suggested insulin dose and call covering provider. Iron Sucrose (Venofer) inj 100 mg 100 mg, IV Push, ON DIALYSIS, 5 doses, Starting on Charley 03/13/23 at 0000, Until Tu03/18/23 at 1826 Given 03/18/2023 9:23 AM EST 100 mg Given 03/15/2023 7:53 AM EST 100 mg Given 03/13/2023 7:52 AM EST 100 mg isosorbide mononitrate SA (Imdur) tab 30 mg 30 mg, Oral, Daily(AM), First dose on 03/09/23 at 0900, Until Discontinued, Hold for 24 hours prior to Stress Test and notify service if dose is held This med should NOT be Crushed or Chewed Given 03/18/2023 11:40 AM EST 30 mg Given 03/17/2023 8:21 AM EST 30 mg Given 03/16/2023 9:18 AM EST 30 mg Levothyroxine Sodium (Levoxyl) tab 125 mcg 125 mcg, Oral, [id number], First dose on 03/09/23 at 0630, Until Discontinued Given 03/18/2023 5:51 AM EST 125 mcg Given 03/17/2023 6:15 AM EST 125 mcg Given 03/16/2023 6:04 AM EST 125 mcg melatonin tab 10 mg 10 mg, Oral, QHS, First dose on 03/09/23 at 2200, Until Discontinued Given 03/17/2023 9:44 PM EST 10 mg Given 03/16/2023 9:14 PM EST 10 mg Given 03/15/2023 8:32 PM EST 10 mg omeprazole (PriLOSEC) cap 20 mg 20 mg, Oral, Daily(AM), First dose on 03/09/23 at 0900, Until Discontinued Given 03/18/2023 11:40 AM EST 20 mg Given 03/17/2023 8:21 AM EST 20 mg Given 03/16/2023 9:19 AM EST 20 mg Pregabalin (Lyrica) cap 100 mg 100 mg, Oral, BID (.AM/PM), First dose on 03/09/23 at 0900, Until Discontinued Given 03/18/2023 11:40 AM EST 10 0 mg Given 03/17/2023 8:23 PM EST 100 mg Given 03/17/2023 8:21 AM EST 100 mg sertraline (Zoloft) tab 100 mg 100 mg, Oral, Daily(AM), First dose on 03/09/23 at 0900, Until Discontinued Given 03/18/2023 11:40 AM EST 100 mg Given 03/17/2023 8:21 AM EST 100 mg Given 03/16/2023 9:19 AM EST 100 mg sodium citrate 4% (Anticoagulant Sodium Citrate) inj 3 mL 3 mL, Dialysis catheter, ONCE, On Fri03/11/23 at 1215, For 1 dose Given 03/11/2023 3:36 PM EST 3 mL sodium citrate 4% (Anticoagulant Sodium Citrate) inj 3 mL 3 mL, Dialysis catheter, ON DIALYSIS, Starting on Charley 03/13/23 at 0928, Until Fri03/18/23 at 1826 Given 03/18/2023 9:26 AM EST 3 mL Given 03/15/2023 9:45 AM EST 3 mL Given 03/13/2023 10:23 AM EST 3 mL documented in this encounter Active and Recently Administered Medications Times are shown in EST. Scheduled Medication Order 03/16/2023 03/17/2023 03/18/2023 aspirin enteric coated tab 162 mg 162 mg, Oral, Daily(AM), First dose on 03/09/23 at 0900, Until Discontinued 0918 (Given - Provider: Carolina Winter RN) 0821 (Given - Provider: Carolina Winter RN) 1140 (Given - Provider: Elizabeth Trujillo RN) atorvaSTATin (Lipitor) tab 80 mg 80 mg, Oral, Q1700, First dose on 03/09/23 at 1700, Until Discontinued 1620 (Given - Provider: Carolina Winter RN) 1541 (Given - Provider: Carolina Winter RN) carbidopa-levodopa 25-100 mg per tab (Sinemet) 1 Tablet 1 Tablet, Oral, TID(AM/NOON/HS), First dose on Fri03/09/23 at 0600, Until Discontinued 0604 (Given - Provider: Jenny Velasquez RN)1314 (Given - Provider: Carolina Winter RN)2115 (Given - Provider: Makenna Slaughter LPN) 0615 (Given - Provider: Makenna Slaughter LPN)1128 (Given - Provider: Carolina Winter RN)2144 (Given - Provider: Makenna Slaughter LPN) 0551 (Given - Provider: Makenna Slaughter LPN)1153 (Given - Provider: Elizabeth Trujillo, STEFFEN) chlorhexidine gluconate cloth 2 % pad External, [id number], First dose on Fri03/12/23 at 1045, Until Discontinued, Applied to appropriate patients per counter tacker's recommendations following daily care. May use more than one Pad (cloth/wipe) as needed to complete care. 1314 (Given - Provider: Carolina Winter RN) 1000 (Given - Provider: Carolina Winter RN) 1140 (Given - Provider: Elizabeth Trujillo, STEFFEN) fluticasone furoate-vilanterol (BREO ellipta) 200-25 MCG/ACT inhaler 1 Puff 1 Puff, Inhalation, RESPDAILY, First dose on Fri03/09/23 at 0800, Until Discontinued, NURSING TO FOLLOW PATIENT WITH MDI/DPI ADMINISTRATION 0919 (Given - Provider: Carolina Winter RN) 0823 (Given - Provider: Carolina Winter RN) 1149 (Given - Provider: Elizabeth Trujillo, STEFFEN) hEParin 1000 UNIT/ML inj (dialysis orders only) Intravenous, ON DIALYSIS, Starting on Fri03/16/23 at 1053, Until Fri03/18/23 at 1826, For 7 days, Bolus: 1000 units To be given ONLY on dialysis only. Enter Date of Dialysis Rx:: 03/18/22 0755 (Given - Provider: Tommy Morales RN) hEParin 1000 UNIT/ML inj (dialysis orders only) (COMPLETED) Intravenous, ONCE, On Fri03/18/23 at 0000, For 1 dose, Maintenance: Drip: 500 Units/ Hr. Continue heparin until end of dialysis treatment Stop 1 hour before dialysis end in AVF/AVG. Continue through dialysis in CVC. The total delivered dose is approximately 2,500 to 5,000 units, based on weight and treatment duration assumptions. 0755 (Given - Provider: Tommy Morales RN - Comment: 500 Units/Hr for 3.5Hours) hEParin inj 7,500 Units 7,500 Units, Subcutaneous, Q12H, First dose on Fri03/10/23 at 0900, Until Discontinued 09 (Given - Provider: Carolina Winter RN)2115 (Not Given - Provider: Makenna Slaughter LPN - Reason: Refused-Notify Provider) 0839 (Given - Provider: Carolina Winter RN)2100 (Not Given - Provider: Makenna Slaughter LPN - Reason: Refused-Notify Provider) 1144 (Given - Provider: Elizabeth Trujillo RN) insulin aspart (NovoLOG) inj Subcutaneous, WITH MEALS, First dose on Fri03/13/23 at 1730, Until Discontinued, LOW DOSE (Elderly insulin sensitive patient): Sliding Scale Correctional insulin may be given if the patient is NPO. Dose based on standard build from Insulin Calculator. Do not modify insulin doses in administration instructions! , Glucose less than 70 instructions: Obtain STAT lab blood glucose and call covering provider., Glucose 80-150 (units): 0, Glucose 151-200 (units): 1, Glucose 201-250 (units): 2, Glucose 251-300 (units): 3, Glucose greater than 300 (units): 4, Glucose greater than 300 instructions: Give suggested insulin dose and call covering provider. 0800 (Not Given - Provider: Carolina Winter RN - Reason: Parameter(s) Not Met)1200 (Not Given - Provider: Carolina Winter RN - Reason: Parameter(s) Not Met)1700 (Not Given - Provider: Carolina Winter RN - Reason: Parameter(s) Not Met) 0800 (Not Given - Provider: Carolina Winter RN - Reason: Parameter(s) Not Met)1200 (Not Given - Provider: Carolina Winter RN - Reason: Parameter(s) Not Met)1700 (Not Given - Provider: Carolina Winter RN - Reason: Parameter(s) Not Met) 0800 (Not Given - Provider: Elizabeth Trujillo RN - Reason: Parameter(s) Not Met - Comment: pt at dialysis)1200 (Not Given - Provider: Elizabeth Trujillo RN - Reason: Parameter(s) Not Met) Iron Sucrose (Venofer) inj 100 mg 100 mg, IV Push, ON DIALYSIS, 5 doses, Starting on Fri03/13/23 at 0000, Until Fri03/18/23 at 1826 0923 (Given - Provider: Tommy Morales RN) isosorbide mononitrate SA (Imdur) tab 30 mg 30 mg, Oral, Daily(AM), First dose on 03/09/23 at 0900, Until Discontinued, Hold for 24 hours prior to Stress Test and notify service if dose is held This med should NOT be Crushed or Chewed 0918 (Given - Provider: Carolina Winter RN) 08 (Given - Provider: Carolina Winter RN) 1140 (Given - Provider: Elizabeth Trujillo RN) Levothyroxine Sodium (Levoxyl) tab 125 mcg 125 mcg, Oral, [id number], First dose on 03/09/23 at 0630, Until Discontinued 06 (Given - Provider: Jenny Velasquez RN) 0615 (Given - Provider: Makenna Slaughter LPN) 0551 (Given - Provider: Makenna Slaughter LPN) melatonin tab 10 mg 10 mg, Oral, QHS, First dose on 03/09/23 at 2200, Until Discontinued 2113 (Given - Provider: Makenna Slaughter LPN) 2143 (Given - Provider: Makenna Slaughter LPN) omeprazole (PriLOSEC) cap 20 mg 20 mg, Oral, Daily(AM), First dose on 03/09/23 at 0900, Until Discontinued 0919 (Given - Provider: Carolina Winter RN) 0821 (Given - Provider: Carolina Winter RN) 1140 (Given - Provider: Elizabeth Trujillo RN) Pregabalin (Lyrica) cap 100 mg 100 mg, Oral, BID (.AM/PM), First dose on 03/09/23 at 0900, Until Discontinued 918 (Given - Provider: Carolina Winter RN)2114 (Given - Provider: Makenna Slaughter LPN) 820 (Given - Provider: Carolina Winter RN)2022 (Given - Provider: Makenna Slaughter LPN) 1140 (Given - Provider: Elizabeth Trujillo, RN) sertraline (Zoloft) tab 100 mg 100 mg, Oral, Daily(AM), First dose on 03/09/23 at 0900, Until Discontinued 918 (Given - Provider: Carolina Winter RN) 820 (Given - Provider: Carolina Winter RN) 1140 (Given - Provider: Elizabeth Trujillo, STEFFEN) sodium citrate 4% (Anticoagulant Sodium Citrate) inj 3 mL 3 mL, Dialysis catheter, ON DIALYSIS, Starting on Charley 03/13/23 at 0928, Until Fri03/18/23 at 1826 0926 (Given - Provider: Tommy Morales RN) PRN Medication Order 03/16/2023 03/17/2023 03/18/2023 Acetaminophen (Tylenol) tab 650 mg 650 mg, Oral, Q4H PRN Pain, Mild, Fever >38C(100.5F), Pain, Moderate, Pain, Severe, Starting on 03/10/23 at 2030, Until Fri03/18/23 at 1826, Maximum of 4 grams (4000 mg) per day. Albuterol Sulfate (Proventil) (2.5 MG/3ML) 0.083% inhalation solution 2.5 mg 2.5 mg, Nebulizer, Q4H PRN Dyspnea, Starting on 03/09/23 at 0909, Until Fri03/18/23 at 1826 dextrose 50 % inj 25 mL 25 mL, IV Push, PRN Hypoglycemia, Other, For blood glucose 54 - 69 mg/dL or 70 - 100 mg/dL with symptoms AND patient is unresponsive, NPO, OR unable to swallow, Starting on 03/09/23 at 0408, Until Fri03/18/23 at 1826, Administer IV. Recheck blood glucose after 15 minutes. Notify provider. dextrose 50 % inj 50 mL 50 mL, IV Push, PRN Hypoglycemia, Other, For blood glucose below 54 mg/dL AND patient unresponsive, NPO, OR unable to swallow, Starting on Fri03/09/23 at 0408, Until Fri03/18/23 at 1825, Administer IV. Recheck blood glucose in 15 minutes. Notify provider. Docusate Sodium (Colace) cap 100 mg 100 mg, Oral, DAILY PRN Constipation, Starting on Fri03/09/23 at 0410, Until Fri03/18/23 at 1825, For oral administration ONLY, if route of administration is other than oral and alternative product must be ordered. glucagon (Glucagen) inj 1 mg 1 mg, Intramuscular, PRN Hypoglycemia, Other, If patient is unresponsive, or NPO and has no IV access, Starting on Fri03/09/23 at 0408, Until Fri03/18/23 at 1825, NPO and no IV access with either 1) blood glucose less than 100 mg/dL and symptomatic OR 2) blood glucose less than 70 mg/dL and asymptomatic Glucose (Glutose 15) 40 % gel 15 g of glucose 15 g of glucose, Oral, PRN Hypoglycemia (low sugar), Other, For blood glucose 54 - 69 mg/dL or 70 - 100 mg/dL with symptoms AND patient alert WITH difficulty chewing/swallowing, Starting on Fri03/09/23 at 0408, Until Fri03/18/23 at 1825, Administer gel. Recheck blood glucose after 15 minutes. Notify provider. 37.5 gram tube = 15 grams glucose = 1 each Glucose (Glutose 15) 40 % gel 30 g of glucose 30 g of glucose, Oral, PRN Hypoglycemia (low sugar), Other, For blood glucose below 54 mg/dL AND patient alert WITH difficulty chewing/swallowing, Starting on Fri03/09/23 at 0408, Until Fri03/18/23 at 1825, Administer gel. Recheck blood glucose after 15 minutes. Notify provider. 37.5 gram tube = 15 grams glucose = 1 each glucose chew tab 16 g 16 g, Oral, PRN Hypoglycemia, Other, For blood glucose 54 - 69 mg/dL or 70 - 100 mg/dL with symptoms and patient alert without difficulty chewing/swallowing., Starting on Fri03/09/23 at 0408, Until Fri03/18/23 at 1825 [id number] (Robitussin DM) oral syrup 10 mL 10 mL, Oral, Q4H PRN Cough, Starting on 03/09/23 at 0410, Until Fri03/18/23 at 1826 house antacid (Mi-Acid II) oral susp 15 mL 15 mL, Oral, Q4H PRN Indigestion, Starting on 03/09/23 at 0410, Until Fri03/18/23 at 1826, SHAKE WELL ondansetron (Zofran) inj 4 mg 4 mg, IV Push, Q6H PRN Nausea, Starting on 03/09/23 at 0410, Until Fri03/18/23 at 1826 sodium chloride 0.9 % flush/inj 3 mL 3 mL, IV Push, PRN Other, Line Patency, Starting on Fri03/09/23 at 0402, Until Fri03/18/23 at 1826, Do not flush if lock, PICC, or central line not in place, IV infusing or unable to flush documented in this encounter Advance Directives Documents on File Type Date Recorded Patient Manager Financial Systems Expl anation Power of Exchange Floor Manager 12/16/2018 10:33 AM Nate r of Exchange Floor Manager Latest Code Status on File Code [...] the patient have Health Care Power of Exchange Floor Manager? No Healthcare Agents on File Name Relationship Healthcare Agent Relationshi p Communication Lolly French Spouse Health Care Agent Care Teams Adding Machine Operator Relationship Specialty Start Date End Date Bella Power MD [address] [place] [address] ROD Gallagher [id number] PCP - General Family Medicine 04/02/19 documented as of this encounter
--- OUTSIDE RECORDS SUMMARY | 2023-05-23 20:03 | External Medical Summary | Summary of Care ---
Author Name Unknown Organization [facility] Address [address] [facility] [place] [address] Phone [phone] Care Team Providers Care Mastic Man Name Role Phone Bella Power MD Primary Care Prov ider Reason for Visit * Reason Onset Date Comments [facility]: Maintenance 03/18/2023 Encounter Details Date Type Department Care Team (Late st Contact Info) Description 03/18/2023 Telephone [facility], [place] [address] [place] [address] Region, Nurse [facility] [address] [facility] [place] [address] [facility]: Maintenance Allergies No known active allergiesdocumented as of this encounter (statuses as of 03/18/2023) Medications Medication Sig Dispensed Refills Start Date [...] directed. 1 Each 11/27/2018 Active DIURETIC TITRATION PLANIndications:Land Agent sandro heart failure with preserved ejection [...] WRAP) 30 g 11 11/09/2022 Active Nystatin 849451 UNIT/GM External Powder (Nystop) Apply topically to [...] DAILY 90 Tablet 3 01/14/2023 4 Active Pregabalin 100 MG Oral Capsule (Lyrica)Indications: Primary parkinsonism Take 1 capsule by mouth twice daily. May take 1 extra capsule after dialysis. 90 Capsule 1 02/12/2023 Active CPAP every night at bedtime. 0 Active Coloplast PasteIndications:Hem orrhoids, external without complications Use to hemorrhoids 1-2 times per day as needed for hemorrhoids 57 g 3 03/13/2023 Active Hydrocortisone (Perianal) 2.5 % External Cream (Procto-Med HC)Indications:Hemor rhoids, external without complications Administer into the rectum daily as needed for Hemorrhoids. 28 g 2 03/13/2023 Active documented as of this encounter (statuses as of 03/18/2023) Active Problems Problem Noted Date Diagnosed Date [...] as of this encounter (statuses as of 03/18/2023) Resolved Problems Problem Noted Date Diagnosed Date [...] as of this encounter (statuses as of 03/18/2023) Immunizations Name Administration Dates Next Due COVID-19 mRNA, LNP-s, No Pre serve, 2-Dose Series (Wyldfire) 01/02/2021,06/21/2020,05/24/2020 COVID-19, mRNA, LNP-s, PF, B ooster, [...] encounter Miscellaneous Notes * Telephone Encounter - Justa Preciado LPN - 03/18/2023 3:19 PM EST Patient was [place] [facility] [place] [facility] Will add to Bella Garcia's schedule for 1 week follow up call FYI care team documented in this encounter Plan of Treatment Upcoming Encounters Date Type Department Care Team (Late st Contact Info) Description 03/19/2023 8:30 AM EST Long-Term Visit [address] [place] [address] Howie Gilbert MD [address] [place] [address] [place] [address] 03/25/2023 1:30 PM EST Scheduled Telephone [facility], [facility] [address] [facility] [place] [address] Bella Garcia CM [address] [facility] [place] [address] 03/25/2023 2:00 PM EST Scheduled Telephone [facility], [place] [address] [facility] [place] [address] Bella Garcia, [address] [place] [address] 05/07/2023 2:20 PM EST Office Visit Family Medicine [address] [place] [phone] Vianca Kitchen MD [address] [place] [address] [place] [address] 06/10/2023 3:00 PM EDT Laboratory Laboratory [address] [place] [phone] [place] [address] 06/16/2023 2:30 PM EDT Office Visit Hematology/Oncology [address] [place] [address] Cynthia Gonzalez MD [address] [facility] [place] [address] Scheduled Procedures Name Priority Associated Diagnoses Date/Ti [...] Documents on File Type Date Recorded Patient Talend Developer Expl anation Power of Can Closing Machine Operator 12/16/2018 10:33 AM Nate r of Can Closing Machine Operator Latest Code Status on File Code Status Date Activated Date Inactivated Comments Full Code 03/09/2023 4:12 AM This orde r reflects the patients wishes and were consensually [...] the patient have Health Care Power of Can Closing Machine Operator? No Healthcare Agents on File Name Relationship Healthcare Agent Relationshi p Communication Wesley Hassan Spouse Health Care Agent Care Teams Mastic Man Relationship Specialty Start Date End Date Bella Power MD [address] [place] [address] [place] [address] PCP - General Family Medicine 04/02/19 documented as of this encounter
--- OUTSIDE RECORDS SUMMARY | 2023-05-23 20:03 | External Medical Summary | Summary of Care ---
Author Name Unknown Organization [facility] Address [address] [facility] [place] [address] Phone [phone] Care Team Providers Care Supervisor Heading Name Role Phone Bella Power MD Primary Care Prov ider Encounter Details Date Type Department Care Team (Late st Contact Info) Description 03/19/2023 Population Health External Data Unspecified Department Allergies [...] 1 Each 1 11/27/2018 Active DIURETIC TITRATION PLANIndications:Jewelry Internship sandro heart failure with preserved ejection fraction [...] ndications:COPD, group B, by GOLD 2017 classification ([facility]) Inhale by mouth 1 Puff [...] WRAP) 30 g 11 11/09/2022 Active Nystatin 557406 UNIT/GM External Powder (Nystop) Apply topically to [...] mRNA, LNP-s, No Pre serve, 2-Dose Series (Varioptic) 01/02/2021,06/21/2020,05/24/2020 COVID-19, mRNA, LNP-s, PF, B ooster, [...] Contact Info) Description 03/19/2023 8:30 AM EST Halfway Visit [address] [place] [address] Howie Gilbert MD [address] [place] [address] [place] [address] 03/25/2023 1:30 PM EST Scheduled Telephone [facility], [facility] [address] [facility] [place] [address] Bella Garcia, [address] [facility] [place] [address] 03/25/2023 2:00 PM EST Scheduled Telephone [facility], [facility] [address] [facility] [place] [address] Bella Garcia, [address] [facility] [place] [address] 05/07/2023 2:20 PM EST Office Visit Family Medicine [address] [place] [phone] Vianca Kitchen MD [address] [place] [address] [place] [address] 06/10/2023 3:00 PM EDT Laboratory Laboratory [address] [place] [phone] [place], Lab [address] [place] [address] 06/16/2023 2:30 PM EDT Office Visit Hematology/Oncology [place] [address] [place] [address] Cynthia Gonzalez MD [address] [place] [address] Scheduled Procedures Name Priority Associated Diagnoses Date/Ti [...] Documents on File Type Date Recorded Patient Rolled Ham Lacer Expl anation Power of Wafer Polishing Lead Worker 12/16/2018 10:33 AM Nate r of Wafer Polishing Lead Worker Latest Code Status on File Code [...] the patient have Health Care Power of Wafer Polishing Lead Worker? No Healthcare Agents on File Name Relationship Healthcare Agent [facility] p Communication Wesley Hassan Spouse Health Care Agent Care Teams Supervisor Heading Relationship Specialty Start Date End Date Bella Power MD [address] [place] [address] [place] [address] PCP - General Family Medicine 04/02/19 documented as of this encounter
--- OUTSIDE RECORDS SUMMARY | 2023-05-23 20:03 | External Medical Summary | Summary of Care ---
Author Name Unknown Organization [facility] Address [address] [place] [address] Phone [phone] Care Team Providers Care Manager Emergency Name Role Phone Bella Power MD Primary Care Prov ider Reason for Visit * Reason Onset Date Comments Pen[facility]iary Visit 03/18/2023 Encounter Details Date Type Department Care Team (Latest Contact Info) Description 03/18/2023 11:00 AM EST Penitentiary Visit [facility] [address] [place] [address] Nae Rodriges PA-C [address] [place] [address] Malfunction of arteriovenous dialysis fistula, initial encounter (HCC)*; ESRD (end stage renal disease) on dialysis ([facility]); Acute UTI; Bacteremia due to Staphylococcus; Type 2 diabetes mellitus with hemoglobin A1c goal of less than 7.0% ([facility]); 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 factor ([facility]); Steatohepatitis, non-alcoholic; Primary parkinsonism; RENÉ on CPAP; 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 ([facility]); 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[facility]); Acquired hypothyroidism; Chronic heart failure with preserved ejection fraction ([facility]) Allergies No known active [...] 1 Each 1 11/27/2018 Active DIURETIC TITRATION PLANIndications:Excel Developer sandro heart failure with preserved ejection [...] WRAP) 30 g 11 11/09/2022 Active Nystatin [id number] UNIT/GM External Powder (Nystop) Apply topically to [...] Contact Info) Description 03/19/2023 8:30 AM EST Penitentiary Visit [address] [place] [address] Howie Gilbert MD [address] [place] [address] [place] [address] 03/25/2023 1:30 PM EST Scheduled Telephone [facility] [place] [address] [facility] [place] [address] Bella Garcia, [address] [facility] [place] [address] 03/25/2023 2:00 PM EST Scheduled Telephone [facility], [place] [address] [place] [address] Bella Garcia, [address] [place] [address] 05/07/2023 2:20 PM EST Office Visit Family Medicine [address] [place] [phone] Vianca Kitchen MD [address] [place] [address] [place] [address] 06/10/2023 3:00 PM EDT Laboratory Laboratory [address] [place] [phone] [place] [address] 06/16/2023 2:30 PM EDT Office Visit Hematology/Oncology [facility] [address] [facility] [place] [address] Cynthia Gonzalez MD [address] [place] [address] Scheduled Procedures Name Priority Associated Diagnoses Date/Ti [...] as of this encounter Visit Diagnoses Diagnosis Malfunction of arteriovenous dialysis fistula, initial encounter (HCC)- Primary ESRD (end stage renal disease) on dialysis (HCC) End stage renal disease Acute UTI Urinary tract infection, site not specified Bacteremia due to Staphylococcus Bacteremia Type 2 diabetes mellitus with hemoglobin A1c goal of less than 7.0% (HCC) 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 factor (HCC) Steatohepatitis, non-alcoholic Other chronic nonalcoholic liver disease Primary parkinsonism Paralysis agitans RENÉ on CPAP Obstructive sleep apnea (adult) (pediatric) 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 No Healthcare Agents on File Name Relationship Healthcare Agent [facility] p Communication Wesley Lee Sonya Spouse Health Care Agent Care Teams Manager Emergency Relationship Specialty Start Date End Date Bella Power MD [address] [place] [address] [place] [address] PCP - General Family Medicine 04/02/19 documented as of this encounter
--- OUTSIDE RECORDS SUMMARY | 2023-05-23 20:03 | External Medical Summary | Continuity Of Care Document ---
Author Name Unknown Address [address] [place] [address] Organization [facility] ( ) Care Team Providers Care Cod Clerk Name Role Phone Howie Gilbert Primary Care Provider [phone] VITAL SIGNS Date Time Diastolic blood pressure Systolic blood pressure Body height Body weight Temperature SpO2 Blood Sugar Pulse Respirations 59043 102 01103 5 77589 102 80810 0 64.00 mm[Hg] - Sitting 124.00 mm[Hg] - Sitting 231.50 NI 98.50 Ear 94.00 % 18.00/min 34170 102 01433 6 64.00 mm[Hg] - Lying Down 110.00 mm[Hg] - Lying Down 98.10 Ear 78.00/ min 18.00/min
--- OUTSIDE RECORDS SUMMARY | 2023-05-23 20:04 | External Medical Summary ---
Author Name Unknown Address Unknown Organization : Laboratory Report Ordering Provider Test Date Status ELI OLIVA 03/16/2023 17:17:09 Final Observation Date Value Abnormality Reference (Units ) Status Glucose Point of Care 03/16/2023 17:17:09 107 70-120 (mg/dL) Final Performing Location
--- OUTSIDE RECORDS SUMMARY | 2023-05-23 20:04 | External Medical Summary ---
Author Name Unknown Address Unknown Organization : Laboratory Report Ordering Provider Test Date Status ELI OLIVA 03/14/2023 20:56:53 Final Observation Date Value Abnormality Reference (Units ) Status Glucose Point of Care 03/14/2023 20:56:53 118 70-120 (mg/dL) Final Performing Location
--- OUTSIDE RECORDS SUMMARY | 2023-05-23 20:04 | External Medical Summary ---
Author Name Unknown Address Unknown Organization : Laboratory Report Ordering Provider Test Date Status ELI OLIVA 03/15/2023 06:24:07 Final Observation Date Value Abnormality Reference (Units ) Status Glucose Point of Care 03/15/2023 06:24:07 120 70-120 (mg/dL) Final Performing Location
--- OUTSIDE RECORDS SUMMARY | 2023-05-23 20:04 | External Medical Summary ---
Author Name Unknown Address Unknown Organization K01:[facility]ORY [facility] [place] - [address] [facility] [address] Laboratory Report Ordering Provider Test Date Status ELI OLIVA 03/18/2023 08:22:52 Final Observation Date Value Abnormality Reference (Units ) Status WBC, Total 03/18/2023 08:22:52 7.72 4.00-10.80 (K/uL) Final RBC 03/18/2023 08:22:52 3.16 3.85-5.15 (M/uL) Final Hemoglobin 03/18/2023 08:22:52 9.1 Below low normal 12.0-15.3 (g/dL) Final HCT 03/18/2023 08:22:52 30.1 Below low normal 36.0-45.2 (%) Final MCV 03/18/2023 08:22:52 95.3 81.5-97.5 (fL) Final MCH 03/18/2023 08:22:52 28.8 27.0-34.0 (pg) Final MCHC 03/18/2023 08:22:52 30.2 32.0-36.0 (g/dL) Final RDW 03/18/2023 08:22:52 16.7 11.5-15.5 (%) Final Platelets 03/18/2023 08:22:52 198 140-400 (K/uL) Final MPV 03/18/2023 08:22:52 10.9 6.6-11.1 (fL) Final Nucleated erythrocytes/100 leukocytes [Ratio] in Blood by Automated count 03/18/2023 08:22:52 0 <=0 (/100 WBCs) Final Performing Location [facility]ORY [facility] [place] - [address] [place] [address]
--- OUTSIDE RECORDS SUMMARY | 2023-05-23 20:04 | External Medical Summary ---
Author Name Unknown Address Unknown Organization : Laboratory Report Ordering Provider Test Date Status ELI OLIVA 03/14/2023 07:29:34 Final Observation Date Value Abnormality Reference (Units ) Status Glucose Point of Care 03/14/2023 07:29:34 103 70-120 (mg/dL) Final Performing Location
--- OUTSIDE RECORDS SUMMARY | 2023-05-23 20:04 | External Medical Summary ---
Author Name Unknown Address Unknown Organization : Laboratory Report Ordering Provider Test Date Status ELI OLIVA 03/15/2023 15:33:56 Final Observation Date Value Abnormality Reference (Units ) Status Glucose Point of Care 03/15/2023 15:33:56 144 Above high normal 70-120 (mg/dL) Final Performing Location
--- OUTSIDE RECORDS SUMMARY | 2023-05-23 20:04 | External Medical Summary ---
Author Name Unknown Address Unknown Organization : Laboratory Report Ordering Provider Test Date Status ELI OLIVA 03/16/2023 20:49:01 Final Observation Date Value Abnormality Reference (Units ) Status Glucose Point of Care 03/16/2023 20:49:01 134 Above high normal 70-120 (mg/dL) Final Performing Location
--- OUTSIDE RECORDS SUMMARY | 2023-05-23 20:04 | External Medical Summary ---
Author Name Unknown Address Unknown Organization : Laboratory Report Ordering Provider Test Date Status ELI OLIVA 03/12/2023 11:30:50 Final Observation Date Value Abnormality Reference (Units ) Status Glucose Point of Care 03/12/2023 11:30:50 127 Above high normal 70-120 (mg/dL) Final Performing Location
--- OUTSIDE RECORDS SUMMARY | 2023-05-23 20:04 | External Medical Summary ---
Author Name Unknown Address Unknown Organization : Laboratory Report Ordering Provider Test Date Status ELI OLIVA 03/17/2023 21:00:06 Final Observation Date Value Abnormality Reference (Units ) Status Glucose Point of Care 03/17/2023 21:00:06 121 Above high normal 70-120 (mg/dL) Final Performing Location
--- OUTSIDE RECORDS SUMMARY | 2023-05-23 20:04 | External Medical Summary ---
Author Name Unknown Address Unknown Organization : Laboratory Report Ordering Provider Test Date Status ELI OLIVA 03/18/2023 11:09:29 Final Observation Date Value Abnormality Reference (Units ) Status Glucose Point of Care 03/18/2023 11:09:29 94 70-120 (mg/dL) Final Performing Location
--- OUTSIDE RECORDS SUMMARY | 2023-05-23 20:04 | External Medical Summary ---
Author Name Unknown Address Unknown Organization K01:[facility] [place] [facility] [address] [facility] [place] [address] Laboratory Report Ordering Provider Test Date Status ELI OLIVA 03/15/2023 05:56:00 Final Observation Date Value Abnormality Reference (Units ) Status BUN 03/15/2023 05:56:00 27 Above high normal 6-20 (mg/dL) Final Creatinine 03/15/2023 05:56:00 7.9 Above high normal 0.5-1.0 (mg/dL) Final Glomerular filtration rate/1.73 sq M.predicted [Volume Rate/Area] in Serum, Plasma or Blood by Creatinine-based formula (CKD-EPI) 03/15/2023 05:56:00 5 Below low normal >=60 (mL/min) Final eGFR is calculated based on the CKD-EPI 2020 equation SODIUM 03/15/2023 05:56:00 136 135-146 (m mol/L) Final Potassium 03/15/2023 05:56:00 3.4 Below low normal 3.5 -5.1 (mmol/L) Final Cl 03/15/2023 05:56:00 97 Below low normal 98- 107 (mmol/L) Final CO2 03/15/2023 05:56:00 24 22-32 (mmo l/L) Final Anion gap 03/15/2023 05:56:00 15 7-15 (mmol /L) Final Glucose 03/15/2023 05:56:00 115 70-120 (mg /dL) Final Calcium 03/15/2023 05:56:00 8.5 8.4-10.2 ( mg/dL) Final Albumin 03/15/2023 05:56:00 3.4 Below low normal 3.8 -5.0 (g/dL) Final Phosphate 03/15/2023 05:56:00 6.7 Above high normal 2. 5-4.8 (mg/dL) Final Performing Location [facility] [place] [address] [facility] [address]
--- OUTSIDE RECORDS SUMMARY | 2023-05-23 20:04 | External Medical Summary ---
Author Name Unknown Address Unknown Organization : Laboratory Report Ordering Provider Test Date Status ELI OLIVA 03/13/2023 16:29:18 Final Observation Date Value Abnormality Reference (Units ) Status Glucose Point of Care 03/13/2023 16:29:18 101 70-120 (mg/dL) Final Performing Location
--- OUTSIDE RECORDS SUMMARY | 2023-05-23 20:04 | External Medical Summary ---
Author Name Unknown Address Unknown Organization : Laboratory Report Ordering Provider Test Date Status ELI OLIVA 03/16/2023 07:21:54 Final Observation Date Value Abnormality Reference (Units ) Status Glucose Point of Care 03/16/2023 07:21:54 111 70-120 (mg/dL) Final Performing Location
--- OUTSIDE RECORDS SUMMARY | 2023-05-23 20:04 | External Medical Summary ---
Author Name Unknown Address Unknown Organization : Laboratory Report Ordering Provider Test Date Status ELI OLIVA 03/17/2023 11:26:18 Final Observation Date Value Abnormality Reference (Units ) Status Glucose Point of Care 03/17/2023 11:26:18 112 70-120 (mg/dL) Final Performing Location
--- OUTSIDE RECORDS SUMMARY | 2023-05-23 20:04 | External Medical Summary ---
Author Name Unknown Address Unknown Organization : Laboratory Report Ordering Provider Test Date Status ELI OLIVA 03/17/2023 17:04:08 Final Observation Date Value Abnormality Reference (Units ) Status Glucose Point of Care 03/17/2023 17:04:08 121 Above high normal 70-120 (mg/dL) Final Performing Location
--- OUTSIDE RECORDS SUMMARY | 2023-05-23 20:04 | External Medical Summary | Continuity Of Care Document ---
Author Name Unknown Address [address] [place] [id number] Organization [facility]) Care Team Providers Care Inspector General Name Role Phone Howie Gilbert Primary Care Provider [phone]
--- OUTSIDE RECORDS SUMMARY | 2023-05-23 20:04 | External Medical Summary | Summary of Care ---
Author Name Unknown Organization [facility] Address [address] [place] [address] Phone [phone] Care Team Providers Care Cad Developer Name Role Phone Bella Power MD Primary Care Prov ider Reason for Visit * Reason Onset Date Comments Hospital Follow-Up 03/18/2023 1mo hd/fu linda t needed thanks Charley Encounter Details Date Type Department Care Team (Late st Contact Info) Description 03/18/2023 Telephone Vascular Surg [facility] for [facility] [address] [place] [address] Specified, Zz No Resource [address] [place] [address] Hospital Follow-Up (1mo hd/fu appt needed ... Allergies No known active allergiesdocumented as of this encounter (statuses as of 03/18/2023) Medications Medication Sig Dispensed Refills Start Date End Date Status Coloplast PasteIndications:He morrhoids, external without complications Use to hemorrhoids 1-2 times per day as needed for hemorrhoids 57 g 3 03/13/2023 Active Hydrocortisone (Perianal) 2.5 % External Cream (Procto-Med HC)Indications:Hemo rrhoids, external without complications Administer into the rectum daily as needed for Hemorrhoids. 28 g 2 03/13/2023 Active ONETOUCH DELICA LANCETS 33G MISC Up to 4 times daily 100 Each 6 11/24/2014 Suspended Additional Information Glucose Blood (ONETOUCH ULTRA BLUE) STRP Use as directed 4 times a day as needed (Diabetes). 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 Use as directed. 1 Each 1 11/27/2018 Suspended Additional Information DIURETIC TITRATION PLANIndications:Chr onic heart failure with preserved ejection fraction ([facility]) If no improvement on day 3, contact heart failure managing provider. 1 Each 0 12/10/2018 Suspended Additional Information Melatonin 10 MG Tablet Take 1 Tablet by mouth every night at bedtime. 0 Suspended DIURETIC TITRATION PLAN If no improvement on day 3, contact heart failure managing provider. 0 Suspended acetaminophen (TYLENOL) 325 MG Tablet Take 2 Tabs by mouth every 6 hours as needed for Pain. 30 Tab 0 04/27/2019 Suspended Additional Information Cholecalciferol (VITAMIN D3) 125 MCG (5000 UT) Tablet Take 1 Capsule by mouth in the morning. 0 09/15/2019 Suspended EPINEPHrine, Anaphylaxis, 1 MG/ML SOLN Inject 0.3 mL as directed as needed for Anaphylaxis (severe allergic reaction). 0.3 mL 0 10/14/2019 Suspended Additional Information Aspirin 81 MG Oral Tablet Delayed ReleaseIndications: ASCVD (arteriosclerotic cardiovascular disease) Take 2 Tablets by mouth in the morning. 30 Tab 5 12/03/2019 Suspended Meclizine HCl 12.5 MG Oral Tablet (ANTIVERT) Take 1 Tablet by mouth 3 times a day as needed. 0 Suspended Breo Ellipta 200-25 MCG/INH Inhalation Aerosol Powder Breath Activated (fluticasone furoate-vilanterol) Indications:COPD, group B, by GOLD 2017 classification ([facility]) Inhale by mouth 1 Puff in the morning. 60 Each 0 08/22/2021 Suspended Additional Information Auryxia 1 GM 210 MG(Fe) Oral Tablet TAKE 1 TABLET BY MOUTH THREE TIMES A DAY WITH MEALS. SWALLOW WHOLE, DO NOT CHEW OR CRUSH MEDICATION 0 05/11/2022 Suspended Nanci-Samuel Oral Tablet Take 1 Tablet by mouth in the morning. 0 05/16/2022 Suspended Docusate Sodium 100 MG Oral Capsule (Colace)Indications :Chronic idiopathic constipation TAKE ONE CAPSULE BY MOUTH IN THE MORNING AND ONE CAPSULE BEFORE BEDTIME 60 Capsule 5 08/06/2022 4 Suspended Additional Information Sertraline HCl 100 MG Oral Tablet (Zoloft) TAKE ONE TABLET BY MOUTH IN THE MORNING 30 Tablet 5 08/21/2022 4 Suspended Additional Information Levothyroxine Sodium 125 MCG Oral Tablet (Levoxyl) TAKE 1 TABLET BY MOUTH DAILY AT LEAST 30 MINUTES PRIOR TO FIRST MEAL OF THE DAY OR OTHER MEDICATIONS. 90 Tablet 3 08/21/2022 4 Suspended Additional Information Atorvastatin Calcium 80 MG Oral Tablet (Lipitor) TAKE 1 TABLET BY MOUTH DAILY. 90 Tablet 1 08/21/2022 4 Suspended Additional Information Mupirocin 2 % External Ointment (Bactroban) apply one application externally twice daily 22 g 0 09/09/2022 Suspended Additional Information Carbidopa-Levodopa 25-100 MG Oral Tablet (Sinemet) TAKE ONE TABLET BY MOUTH THREE TIMES A DAY WITH MEALS 90 Tablet 5 09/14/2022 4 Suspended Additional Information Lidocaine-Prilocain e 2.5-2.5 % External Cream (Emla) APPLY SMALL AMOUNT TO ACCESS SITE (AVF) 1 TO 2 HOURS BEFORE DIALYSIS. COVER WITH OCCLUSIVE DRESSING (SARAN WRAP) 30 g 11 11/09/2022 Suspended Additional Information Nystatin 636103 UNIT/GM External Powder (Nystop) Apply topically to affected area 2 times a day. 60 g 5 11/09/2022 Suspended Additional Information Pantoprazole Sodium 20 MG Oral Tablet Delayed Release (Protonix) Take 1 Tablet by mouth in the morning and 1 Tablet in the evening. 180 Tablet 1 11/27/2022 Suspended Additional Information Isosorbide Mononitrate ER 30 MG Oral Tablet Extended Release 24 Hour (Imdur) TAKE 1 TABLET BY MOUTH DAILY 90 Tablet 3 01/14/2023 4 Suspended Additional Information Pregabalin 100 MG Oral Capsule (Lyrica)Indications :Primary parkinsonism Take 1 capsule by mouth twice daily. May take 1 extra capsule after dialysis. 90 Capsule 1 02/12/2023 Suspended Additional Information CPAP every night at bedtime. 0 Suspended documented as of this encounter (statuses as [...] falls on the pl SDH (subdural hematoma) 04/20/2019/03/2019 Overview: acute Ecchymosis 04/20/2019 09/08/2020 Old myocardial [...] mRNA, LNP-s, No Pre serve, 2-Dose Series ([employer]) 01/02/2021,06/21/2020,05/24/2020 COVID-19, mRNA, LNP-s, PF, B ooster, [...] encounter Miscellaneous Notes * Telephone Encounter - Charley Mosley, RENÉ - 03/18/2023 7:35 AM EST Order RETURN APPT [IP355] (Order [id number]) Chester Hassan 03/09/2023 3:20 AM Admission Description: 77 year old female Department: [facility] [address] [facility] Message Patient Name: CHESTER HASSAN([id number]) Sex: Female : 1945 PCP: BELLA POWER Center: [facility] Types of orders made on 03/18/2023: IP Post Discharge , Point of Care Testing, Point of Care Testing - Unsolicited Results Order Date: Ordering User:RICKY MARTINEZ [[id number]] Attending Provider:Sheri Ramirez MD [[id number]] Authorizing Provider: Ricky Martinez MD [[id number]] Department:[facility] 8 [facility][id number]] Order Specific Information Order: RETURN APPT [CUSTOM: IP355] Order #: [id number]: 1 Priority: Routine Class: Nursing Unit Comment:[facility] Department (Single Entry) -> Vascular [place] Appt Needed Within: (Specify # of Days, Weeks, Months) -> 1 Mo Released on: 03/18/2023 7:21 AM Priority: Routine Class: Nursing Unit Comment:[facility] Department (Single Entry) -> Vascular Surgery Appt Needed Within: (Specify # of Days, Weeks, Months) -> 1 Mo Released on: 03/18/2023 7:21 AM documented in this encounter Plan of Treatment Upcoming Encounters Date Type Department Care Team (Late st Contact Info) Description 03/19/2023 8:30 AM EST Shelter Visit [address] [place] [address] Howie Gilbert MD [address] [place] [address] [place] [address] 05/07/2023 2:20 PM EST Office Visit Family Medicine [address] [place] [phone] Vianca Kitchen MD [address] [place] [address] [place] [address] 06/10/2023 3:00 PM EDT Laboratory Laboratory [address] [place] [phone] [address] [place] [address] 06/16/2023 2:30 PM EDT Office Visit Hematology/Oncology [facility] [place] [address] [place] [address] Cynthia Gonzalez MD [address] [place] [address] Scheduled Procedures Name Priority Associated Diagnoses Date/Ti [...] Documents on File Type Date Recorded 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 No Healthcare Agents on File Name Relationship Healthcare Agent Relationshi p Communication Wesley Hassan Spouse Health Care Agent Care Teams Cad Developer Relationship Specialty Start Date End Date Bella Power MD [address] [place] [address] [place] [phone] PCP - General Family Medicine 04/02/19 documented as of this encounter
--- OUTSIDE RECORDS SUMMARY | 2023-05-23 20:04 | External Medical Summary | Summary of Care ---
Author Name Unknown Organization [facility] Address [address] [place] [address] Phone [phone] Care Team Providers Care Fuse Coiler Name Role Phone Bella Power MD Primary Care Prov ider Reason for Visit * Reason Onset Date Comments Hospital Follow-Up 03/18/2023 1mo hd/fu linda t needed thanks Charley Encounter Details Date Type Department Care Team (Late st Contact Info) Description 03/18/2023 Telephone Vascular Surg [facility] for [facility] [address] [place] [address] Specified, Zz No Resource [address] [place] [address] Hospital Follow-Up (1mo hd/fu appt [...] 02/03/2018 Suspended Additional Information Nebulizers (NEBULIZER COMPRESSOR) MISCIndications: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 Use as directed. 1 Each 1 11/27/2018 Suspended Additional Information DIURETIC TITRATION PLANIndications:Chr onic heart failure with preserved ejection fraction ([facility]) If no improvement on day 3, [...] g 11 11/09/2022 Suspended Additional Information Nystatin 679911 UNIT/GM External Powder (Nystop) Apply topically to [...] mRNA, LNP-s, No Pre serve, 2-Dose Series ([employer]) 01/02/2021,06/21/2020,05/24/2020 COVID-19, mRNA, LNP-s, PF, B ooster, [...] encounter Miscellaneous Notes * Telephone Encounter - Lashae Eubanks OSA - 03/18/2023 9:34 AM EST Per inpatient d/c notes, patient to follow up with Vascular at [facility]. * Telephone Encounter - Charley Mosley OSA - 03/18/2023 7:35 AM EST Order RETURN APPT [IP355] (Order [id number]) Chester Hassan 03/09/2023 3:20 AM Admission Description: 77 year old female Department: [facility] 8 [facility] Message Patient Name: CHESTER HASSAN([id number]) Sex: Female : 1945 PCP: BELLA POWER Center: [facility] Types of orders made on 03/18/2023: IP Post Discharge , Point of Care Testing, Point of Care Testing - Unsolicited Results Order Date: Ordering User:RICKY MARTINEZ [[id number]] Attending Provider:Sheri Ramirez MD [[id number]] Authorizing Provider: Ricky Martinez MD [[id number]] Department:[facility] 8 [facility][[id number]] Order Specific Information Order: RETURN APPT [CUSTOM: IP355] Order #: [id number]: 1 Priority: Routine Class: Nursing Unit Comment:[facility] Department (Single Entry) -> Vascular [place] Appt Needed Within: (Specify # of Days, Weeks, Months) -> 1 Mo Released on: 03/18/2023 7:21 AM Priority: Routine Class: Nursing Unit Comment:[facility] Department (Single Entry) -> Vascular Surgery Appt Needed Within: (Specify # of Days, Weeks, Months) -> 1 Mo Released on: 03/18/2023 7:21 AM documented in this encounter Plan of Treatment Upcoming Encounters Date Type Department Care Team (Late st Contact Info) Description 03/19/2023 8:30 AM EST Alf Visit [address] [place] [address] Howie Gilbert MD [address] [place] [address] [place] [address] 05/07/2023 2:20 PM EST Office Visit Family Medicine [address] [place] [phone] Vianca Kitchen MD [address] [place] [address] [place] [address] 06/10/2023 3:00 PM EDT Laboratory Laboratory [address] [place] [phone] [address] [place] [address] 06/16/2023 2:30 PM EDT Office Visit Hematology/Oncology [facility] [place] [address] [place] [address] Cynthia Gonzalez MD [address] [place] [address] Scheduled Procedures Name Priority Associated Diagnoses Date/Ti [...] Documents on File Type Date Recorded Patient Management Professional Expl anation Power of Director Counseling Bureau 12/16/2018 10:33 AM Nate r of Director Counseling Bureau Latest Code Status on File Code Status [...] patient have Health Care Power of Director Counseling Bureau? No Healthcare Agents on File Name Relationship Healthcare Agent [facility] p Communication Wesley Hassan Spouse Health Care Agent Care Teams Fuse Coiler Relationship Specialty Start Date End Date Bella Power MD [address] [place] [address] [place] [phone] PCP - General Family Medicine 04/02/19 documented as of this encounter
--- OUTSIDE RECORDS SUMMARY | 2023-05-23 20:04 | External Medical Summary ---
Author Name Unknown Address Unknown Organization : Laboratory Report Ordering Provider Test Date Status ELI OLIVA 03/13/2023 07:09:02 Final Observation Date Value Abnormality Reference (Units ) Status Glucose Point of Care 03/13/2023 07:09:02 94 70-120 (mg/dL) Final Performing Location
--- OUTSIDE RECORDS SUMMARY | 2023-05-23 20:04 | External Medical Summary ---
Author Name Unknown Address Unknown Organization : Laboratory Report Ordering Provider Test Date Status ELI OLIVA 03/13/2023 20:54:41 Final Observation Date Value Abnormality Reference (Units ) Status Glucose Point of Care 03/13/2023 20:54:41 134 Above high normal 70-120 (mg/dL) Final Performing Location
--- OUTSIDE RECORDS SUMMARY | 2023-05-23 20:04 | External Medical Summary ---
Author Name Unknown Address Unknown Organization K01:LABORATORY [facility] - [address] [facility] [place] [address] Laboratory Report Ordering Provider Test Date Status NICOLE DENNIS 03/18/2023 08:00:08 Final DIALYSIS USE ONLY

D raw at the initiation of Dialysis if latest renal function result is more than 24 hours ago. Observation Date Value Abnormality Reference (Units ) Status BUN 03/18/2023 08:00:08 45 Above high normal 6- 20 (mg/dL) Final Creatinine 03/18/2023 08:00:08 9.2 Above high normal 0 .5-1.0 (mg/dL) Final Results rechecked. Glomerular filtration rate/1.73 sq M.predicted [Volume Rate/Area] in Serum, Plasma or Blood by Creatinine-based formula (CKD-EPI) 03/18/2023 08:00:08 4 Below low normal >=60 (mL/min) Fin al eGFR is calculated based on the CKD-EPI 2020 equation SODIUM 03/18/2023 08:00:08 131 Below low normal 135 -146 (mmol/L) Final Potassium 03/18/2023 08:00:08 4.6 3.5-5.1 (m mol/L) Final Cl 03/18/2023 08:00:08 92 Below low normal 98- 107 (mmol/L) Final CO2 03/18/2023 08:00:08 22 22-32 (mmo l/L) Final Anion gap 03/18/2023 08:00:08 17 Above high normal 7- 15 (mmol/L) Final Glucose 03/18/2023 08:00:08 95 70-120 (mg /dL) Final Calcium 03/18/2023 08:00:08 8.7 8.4-10.2 ( mg/dL) Final Albumin 03/18/2023 08:00:08 3.7 Below low normal 3.8 -5.0 (g/dL) Final Phosphate 03/18/2023 08:00:08 8.4 Above high normal 2. 5-4.8 (mg/dL) Final Results rechecked. Performing Location LABORATORY [facility] - [address] [facility] [address]
--- OUTSIDE RECORDS SUMMARY | 2023-05-23 20:04 | External Medical Summary ---
Author Name Unknown Address Unknown Organization : Laboratory Report Ordering Provider Test Date Status ELI OLIVA 03/17/2023 06:42:12 Final Observation Date Value Abnormality Reference (Units ) Status Glucose Point of Care 03/17/2023 06:42:12 94 70-120 (mg/dL) Final Performing Location
--- OUTSIDE RECORDS SUMMARY | 2023-05-23 20:04 | External Medical Summary | Summary of Care ---
Author Name Unknown Organization [facility] Address [address] [facility] [place] [address] Phone [phone] Care Team Providers Care Clinical Dietician Name Role Phone Bella Power MD Primary Care Prov ider Reason for Visit * Reason Onset Date Comments [facility]: Maintenance 03/18/2023 Encounter Details Date Type Department Care Team (Late st Contact Info) Description 03/18/2023 Telephone [facility], [facility] [address] [place] [address] [facility], Nurse [address] [place] [address] [place] [address] [facility]: Maintenance Allergies No known [...] directed. 1 Each 11/27/2018 Active DIURETIC TITRATION PLANIndications:Community Relations Coordinator sandro heart failure with preserved ejection [...] WRAP) 30 g 11 11/09/2022 Active Nystatin 584770 UNIT/GM External Powder (Nystop) Apply topically to [...] mRNA, LNP-s, No Pre serve, 2-Dose Series ([employer]) 01/02/2021,06/21/2020,05/24/2020 COVID-19, mRNA, LNP-s, PF, B ooster, [...] Telephone Encounter - Sheba Loza LPN - 03/18/2023 3:20 PM EST Patient d/c to [facility] Added to Bella garcia to follow d/c documented in this encounter Plan of Treatment Upcoming Encounters Date Type Department Care Team (Late st Contact Info) Description 03/19/2023 8:30 AM EST Fdc Visit [address] [place] [address] Howie Gilbert MD [address] [place] [address] [place] [address] 03/25/2023 1:30 PM EST Scheduled Telephone [facility], [facility] [address] [facility] [place] [address] Bella Garcia CM [address] [facility] [place] [address] 03/25/2023 2:00 PM EST Scheduled Telephone [facility], [place] [address] [place] [address] Bella Garcia, CM [address] [place] [address] 05/07/2023 2:20 PM EST Office Visit Family Medicine [address] [place] [phone] Vianca Kitchen MD [address] [place] [address] [place] [address] 06/10/2023 3:00 PM EDT Laboratory Laboratory [address] [place] [phone] [place] [address] 06/16/2023 2:30 PM EDT Office Visit Hematology/Oncology [facility] [place] [address] [facility] [place] [address] Cynthia Gonzalez MD [address] [place] [address] Scheduled Procedures Name Priority Associated Diagnoses Date/Ti [...] Documents on File Type Date Recorded 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 No Healthcare Agents on File Name Relationship [facility] Wesley Lee Sonya Spouse Health Care Agent Care Teams Clinical Dietician Relationship Specialty Start Date End Date Bella Power MD [address] [place] [address] [place] [address] PCP - General Family Medicine 04/02/19 documented as of this encounter
--- OUTSIDE RECORDS SUMMARY | 2023-05-23 20:04 | External Medical Summary ---
Author Name Unknown Address Unknown Organization : Laboratory Report Ordering Provider Test Date Status ELI OLIVA 03/14/2023 11:17:42 Final Observation Date Value Abnormality Reference (Units ) Status Glucose Point of Care 03/14/2023 11:17:42 128 Above high normal 70-120 (mg/dL) Final Performing Location
--- OUTSIDE RECORDS SUMMARY | 2023-05-23 20:04 | External Medical Summary ---
Author Name Unknown Address Unknown Organization : Laboratory Report Ordering Provider Test Date Status ELI OLIVA 03/12/2023 21:11:22 Final Observation Date Value Abnormality Reference (Units ) Status Glucose Point of Care 03/12/2023 21:11:22 123 Above high normal 70-120 (mg/dL) Final Performing Location
--- OUTSIDE RECORDS SUMMARY | 2023-05-23 20:04 | External Medical Summary ---
Author Name Unknown Address Unknown Organization K01:LABORATORY [facility] - [facility] [address] [facility] [place] [address] Laboratory Report Ordering Provider Test Date Status ELI OLIVA 03/16/2023 05:05:00 Final Observation Date Value Abnormality Reference (Units ) Status BUN 03/16/2023 05:05:00 18 6-20 (mg/dL) Final Creatinine 03/16/2023 05:05:00 5.7 Above high normal 0.5-1.0 (mg/dL) Final Glomerular filtration rate/1.73 sq M.predicted [Volume Rate/Area] in Serum, Plasma or Blood by Creatinine-based formula (CKD-EPI) 03/16/2023 05:05:00 7 Below low normal >=60 (mL/min) Final eGFR is calculated based on the CKD-EPI 2020 equation SODIUM 03/16/2023 05:05:00 134 Below low normal 135 -146 (mmol/L) Final Potassium 03/16/2023 05:05:00 3.8 3.5-5.1 (m mol/L) Final Cl 03/16/2023 05:05:00 96 Below low normal 98- 107 (mmol/L) Final CO2 03/16/2023 05:05:00 26 22-32 (mmo l/L) Final Anion gap 03/16/2023 05:05:00 12 7-15 (mmol /L) Final Glucose 03/16/2023 05:05:00 105 70-120 (mg /dL) Final Calcium 03/16/2023 05:05:00 8.8 8.4-10.2 ( mg/dL) Final Albumin 03/16/2023 05:05:00 3.7 Below low normal 3.8 -5.0 (g/dL) Final Phosphate 03/16/2023 05:05:00 5.0 Above high normal 2. 5-4.8 (mg/dL) Final Performing Location LABORATORY [facility] - [address] [place] [address]
--- OUTSIDE RECORDS SUMMARY | 2023-05-23 20:04 | External Medical Summary ---
Author Name Unknown Address Unknown Organization K01:[facility] [address] [place] [address] Laboratory Report Ordering Provider Test Date Status CHITRA RAMACHANDRAN 03/13/2023 07:34:46 Final Observation Date Value Abnormality Reference (Units ) Status BUN 03/13/2023 07:34:46 34 Above high normal 6-20 (mg/dL) Final Creatinine 03/13/2023 07:34:46 9.3 Above high normal 0.5-1.0 (mg/dL) Final Glomerular filtration rate/1.73 sq M.predicted [Volume Rate/Area] in Serum, Plasma or Blood by Creatinine-based formula (CKD-EPI) 03/13/2023 07:34:46 4 Below low normal >=60 (mL/min) Final eGFR is calculated based on the CKD-EPI 2020 equation SODIUM 03/13/2023 07:34:46 134 Below low normal 135 -146 (mmol/L) Final Potassium 03/13/2023 07:34:46 3.6 3.5-5.1 (m mol/L) Final Cl 03/13/2023 07:34:46 94 Below low normal 98- 107 (mmol/L) Final CO2 03/13/2023 07:34:46 24 22-32 (mmo l/L) Final Anion gap 03/13/2023 07:34:46 16 Above high normal 7- 15 (mmol/L) Final Glucose 03/13/2023 07:34:46 96 70-120 (mg /dL) Final Calcium 03/13/2023 07:34:46 8.3 Below low normal 8.4 -10.2 (mg/dL) Final Albumin 03/13/2023 07:34:46 3.6 Below low normal 3.8 -5.0 (g/dL) Final Phosphate 03/13/2023 07:34:46 7.4 Above high normal 2. 5-4.8 (mg/dL) Final Performing Location LABORATORY C - [address] [place] [address]
--- OUTSIDE RECORDS SUMMARY | 2023-05-23 20:04 | External Medical Summary | Summary of Care ---
Author Name Unknown Organization [facility] Address [address] [place] [address] Phone [phone] Care Team Providers Care Showcase Trimmer Name Role Phone Bella Power MD Primary Care Prov ider Reason for Visit * Reason Onset Date Comments Hospital Follow-Up 03/18/2023 1mo hd/fu linda t needed thanks Charley Encounter Details Date Type Department Care Team (Late st Contact Info) Description 03/18/2023 Telephone Vascular Surg [facility] [address] [place] [address] Specified, Zz No Resource [address] [place] [address] Hospital Follow-Up (1mo hd/fu appt [...] 02/03/2018 Suspended Additional Information Nebulizers (NEBULIZER COMPRESSOR) MISCIndications: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 Use as directed. 1 Each 1 11/27/2018 Suspended Additional Information DIURETIC TITRATION PLANIndications:Chr onic heart failure with preserved ejection fraction ([facility]) If no improvement on day 3, [...] g 11 11/09/2022 Suspended Additional Information Nystatin [id number] UNIT/GM External Powder (Nystop) Apply topically to [...] mRNA, LNP-s, No Pre serve, 2-Dose Series (Dashride) 01/02/2021,06/21/2020,05/24/2020 COVID-19, mRNA, LNP-s, PF, B ooster, [...] encounter Miscellaneous Notes * Telephone Encounter - Vangie Georges CRNP - 03/18/2023 9:39 AM EST Noted. thanks * Telephone Encounter - Lashae Eubanks OSA - 03/18/2023 9:34 AM EST Per inpatient d/c notes, patient to follow up with Vascular at [facility]. * Telephone Encounter - Charley Mosley OSA - 03/18/2023 7:35 AM EST Order RETURN APPT [IP355] (Order [id number]) Chester Hassan 03/09/2023 3:20 AM Admission Description: 77 year old female Department: [facility] Message Patient Name: CHESTER HASSAN([id number]) Sex: Female : 1945 PCP: BELLA POWER Center: [facility] Types of orders made on 03/18/2023: IP Post Discharge , Point of Care Testing, Point of Care Testing - Unsolicited Results Order Date: Ordering User:RICKY MARTINEZ [[id number]] Attending Provider:Sheri Ramirez MD [[id number]] Authorizing Provider: Ricky Martinez MD [[id number]] Department:[facility] 8 [facility][[id number]] Order Specific Information Order: RETURN APPT [CUSTOM: IP355] Order #: [id number]: 1 Priority: Routine Class: Nursing Unit Comment:[facility] Department (Single Entry) -> Vascular [place] Appt Needed Within: (Specify # of Days, Weeks, Months) -> 1 Mo Released on: 03/18/2023 7:21 AM Priority: Routine Class: Nursing Unit Comment:[facility] Department (Single Entry) -> Vascular Surgery Appt Needed Within: (Specify # of Days, Weeks, Months) -> 1 Mo Released on: 03/18/2023 7:21 AM documented in this encounter Plan of Treatment Upcoming Encounters Date Type Department Care Team (Late st Contact Info) Description 03/19/2023 8:30 AM EST Correction Visit [address] [place] [address] Howie Gilbert MD [address] [place] [address] [place] [id number] 05/07/2023 2:20 PM EST Office Visit Family Medicine [address] [place] [phone] Vianca Kitchen MD [address] [place] [address] [place] [address] 06/10/2023 3:00 PM EDT Laboratory Laboratory [address] [place] [phone] [place] [address] 06/16/2023 2:30 PM EDT Office Visit Hematology/Oncology [facility] [address] [facility] [place] [address] Cynthia Gonzalez MD [address] [place] [address] Scheduled Procedures Name Priority Associated Diagnoses Date/Ti [...] Documents on File Type Date Recorded Patient Edger Runner Expl anation Power of Sales Branch Manager 12/16/2018 10:33 AM Nate r of Sales Branch Manager Latest Code Status on File Code [...] the patient have Health Care Power of Sales Branch Manager? No Healthcare Agents on File Name Relationship Healthcare Agent Relationshi p Communication Wesley Hassan Spouse Health Care Agent Care Teams Showcase Trimmer Relationship Specialty Start Date End Date Bella Power MD [address] [place] [address] [place] [id number] PCP - General Family Medicine 04/02/19 documented as of this encounter
--- OUTSIDE RECORDS SUMMARY | 2023-05-23 20:04 | External Medical Summary ---
Author Name Unknown Address Unknown Organization : Laboratory Report Ordering Provider Test Date Status ELI OLIVA 03/15/2023 11:26:48 Final Observation Date Value Abnormality Reference (Units ) Status Glucose Point of Care 03/15/2023 11:26:48 99 70-120 (mg/dL) Final Performing Location
--- OUTSIDE RECORDS SUMMARY | 2023-05-23 20:04 | External Medical Summary ---
Author Name Unknown Address Unknown Organization : Laboratory Report Ordering Provider Test Date Status ELI OLIVA 03/15/2023 20:25:20 Final Observation Date Value Abnormality Reference (Units ) Status Glucose Point of Care 03/15/2023 20:25:20 113 70-120 (mg/dL) Final Performing Location
--- OUTSIDE RECORDS SUMMARY | 2023-05-23 20:04 | External Medical Summary ---
Author Name Unknown Address Unknown Organization : Laboratory Report Ordering Provider Test Date Status ELI OLIVA 03/18/2023 11:48:18 Final Observation Date Value Abnormality Reference (Units ) Status Glucose Point of Care 03/18/2023 11:48:18 78 70-120 (mg/dL) Final Performing Location
--- OUTSIDE RECORDS SUMMARY | 2023-05-23 20:05 | External Medical Summary ---
Author Name Unknown Address Unknown Organization [id number]:LABORATORY [facility] [place] - [address] [facility] [address] Laboratory Report Ordering Provider Test Date Status CHRISTINE PETERSON 03/10/2023 05:06:00 Final Observation Date Value Abnormality Reference (Units ) Status WBC, Total 03/10/2023 05:06:00 8.53 4.00-10.80 (K/uL) Final RBC 03/10/2023 05:06:00 3.00 3.85-5.15 (M/uL) Final Hemoglobin 03/10/2023 05:06:00 8.7 Below low normal 12.0-15.3 (g/dL) Final HCT 03/10/2023 05:06:00 30.3 Below low normal 36.0-45.2 (%) Final MCV 03/10/2023 05:06:00 101.0 81.5-97.5 (fL) Final MCH 03/10/2023 05:06:00 29.0 27.0-34.0 (pg) Final MCHC 03/10/2023 05:06:00 28.7 32.0-36.0 (g/dL) Final RDW 03/10/2023 05:06:00 17.5 11.5-15.5 (%) Final Platelets 03/10/2023 05:06:00 244 140-400 (K/uL) Final MPV 03/10/2023 05:06:00 10.5 6.6-11.1 (fL) Final Nucleated erythrocytes/100 leukocytes [Ratio] in Blood by Automated count 03/10/2023 05:06:00 0 <=0 (/100 WBCs) Final Performing Location LABORATORY [facility] - [address] [place] [address]
--- OUTSIDE RECORDS SUMMARY | 2023-05-23 20:05 | External Medical Summary ---
Author Name Unknown Address Unknown Organization K01:LABORATORY [facility] - [facility] [address] [place] [address] Laboratory Report Ordering Provider Test Date Status ELI OLIVA 03/12/2023 08:31:00 Final Observation Date Value Abnormality Reference (Units ) Status BUN 03/12/2023 08:31:00 25 Above high normal 6-20 (mg/dL) Final Creatinine 03/12/2023 08:31:00 7.1 Above high normal 0.5-1.0 (mg/dL) Final Glomerular filtration rate/1.73 sq M.predicted [Volume Rate/Area] in Serum, Plasma or Blood by Creatinine-based formula (CKD-EPI) 03/12/2023 08:31:00 6 Below low normal >=60 (mL/min) Final eGFR is calculated based on the CKD-EPI 2020 equation SODIUM 03/12/2023 08:31:00 135 135-146 (m mol/L) Final Potassium 03/12/2023 08:31:00 3.6 3.5-5.1 (m mol/L) Final Cl 03/12/2023 08:31:00 96 Below low normal 98- 107 (mmol/L) Final CO2 03/12/2023 08:31:00 26 22-32 (mmo l/L) Final Anion gap 03/12/2023 08:31:00 13 7-15 (mmol /L) Final Glucose 03/12/2023 08:31:00 94 70-120 (mg /dL) Final Calcium 03/12/2023 08:31:00 8.7 8.4-10.2 ( mg/dL) Final Albumin 03/12/2023 08:31:00 3.5 Below low normal 3.8 -5.0 (g/dL) Final Phosphate 03/12/2023 08:31:00 5.7 Above high normal 2. 5-4.8 (mg/dL) Final Performing Location LABORATORY [facility] - [address] [place] [address]
--- OUTSIDE RECORDS SUMMARY | 2023-05-23 20:05 | External Medical Summary ---
Author Name Unknown Address Unknown Organization K01:[facility] [place] [address] [facility] [place] [address] Laboratory Report Ordering Provider Test Date Status MISHA VARGAS 03/11/2023 08:18:00 Final Observation Date Value Abnormality Reference (Units ) Status BUN 03/11/2023 08:18:00 63 Above high normal 6-20 (mg/dL) Final Creatinine 03/11/2023 08:18:00 12.6 Above high normal 0.5-1.0 (mg/dL) Final Glomerular filtration rate/1.73 sq M.predicted [Volume Rate/Area] in Serum, Plasma or Blood by Creatinine-based formula (CKD-EPI) 03/11/2023 08:18:00 3 Below low normal >=60 (mL/min) Final eGFR is calculated based on the CKD-EPI 2020 equation SODIUM 03/11/2023 08:18:00 137 135-146 (m mol/L) Final Potassium 03/11/2023 08:18:00 4.1 3.5-5.1 (m mol/L) Final Cl 03/11/2023 08:18:00 97 Below low normal 98- 107 (mmol/L) Final CO2 03/11/2023 08:18:00 20 Below low normal 22- 32 (mmol/L) Final Anion gap 03/11/2023 08:18:00 20 Above high normal 7- 15 (mmol/L) Final Glucose 03/11/2023 08:18:00 103 70-120 (mg /dL) Final Calcium 03/11/2023 08:18:00 8.2 Below low normal 8.4 -10.2 (mg/dL) Final Performing Location [facility] [place] [address] [place] [address]
--- OUTSIDE RECORDS SUMMARY | 2023-05-23 20:05 | External Medical Summary ---
Author Name Unknown Address Unknown Organization : Laboratory Report Ordering Provider Test Date Status MISHA VARGAS 03/11/2023 11:34:38 Final Observation Date Value Abnormality Reference (Units ) Status Glucose Point of Care 03/11/2023 11:34:38 147 Above high normal 70-120 (mg/dL) Final Performing Location
--- OUTSIDE RECORDS SUMMARY | 2023-05-23 20:05 | External Medical Summary ---
Author Name Unknown Address Unknown Organization : Laboratory Report Ordering Provider Test Date Status MISHA VARGAS 03/11/2023 06:43:07 Final Observation Date Value Abnormality Reference (Units ) Status Glucose Point of Care 03/11/2023 06:43:07 101 70-120 (mg/dL) Final Performing Location
--- OUTSIDE RECORDS SUMMARY | 2023-05-23 20:05 | External Medical Summary ---
Author Name Unknown Address Unknown Organization : Laboratory Report Ordering Provider Test Date Status MISHA VARGAS 03/09/2023 21:08:07 Final Observation Date Value Abnormality Reference (Units ) Status Glucose Point of Care 03/09/2023 21:08:07 148 Above high normal 70-120 (mg/dL) Final Performing Location
--- OUTSIDE RECORDS SUMMARY | 2023-05-23 20:05 | External Medical Summary ---
Author Name Unknown Address Unknown Organization : Laboratory Report Ordering Provider Test Date Status MISHA VARGAS 03/09/2023 11:27:58 Final Observation Date Value Abnormality Reference (Units ) Status Glucose Point of Care 03/09/2023 11:27:58 100 70-120 (mg/dL) Final Performing Location
--- OUTSIDE RECORDS SUMMARY | 2023-05-23 20:05 | External Medical Summary ---
Author Name Unknown Address Unknown Organization K01:LABORATORY [facility] - [address] [place] [address] Laboratory Report Ordering Provider Test Date Status ZORAIDA MASON 03/10/2023 20:20:00 Final Observation Date Value Abnormality Reference (Units ) Status Hep C Ab 03/10/2023 20:20:00 Negative Negative Final Further HCV quantitative yumiko ting not performed per protocol. Performing Location [facility] - [address] [place] [address]
--- OUTSIDE RECORDS SUMMARY | 2023-05-23 20:05 | External Medical Summary ---
Author Name Unknown Address Unknown Organization K01:[facility] - [address] [place] [address] Laboratory Report Ordering Provider Test Date Status ALICIA,MISHA 03/11/2023 08:18:00 Final Observation Date Value Abnormality Reference (Units ) Status Phosphate 03/11/2023 08:18:00 9.9 Above high normal 2. 5-4.8 (mg/dL) Final Performing Location LAB[facility] - [address] [facility] [address]
--- OUTSIDE RECORDS SUMMARY | 2023-05-23 20:05 | External Medical Summary ---
Author Name Unknown Address Unknown Organization K01:LABORATORY [facility] - [address] [place] [address] Laboratory Report Ordering Provider Test Date Status CHRISTINE PETERSON 03/10/2023 05:06:00 Final Observation Date Value Abnormality Reference (Units ) Status BUN 03/10/2023 05:06:00 54 Above high normal 6-20 (mg/dL) Final Creatinine 03/10/2023 05:06:00 11.6 Above high normal 0.5-1.0 (mg/dL) Final Glomerular filtration rate/1.73 sq M.predicted [Volume Rate/Area] in Serum, Plasma or Blood by Creatinine-based formula (CKD-EPI) 03/10/2023 05:06:00 3 Below low normal >=60 (mL/min) Final eGFR is calculated based on the CKD-EPI 2020 equation SODIUM 03/10/2023 05:06:00 141 135-146 (m mol/L) Final Potassium 03/10/2023 05:06:00 4.2 3.5-5.1 (m mol/L) Final Cl 03/10/2023 05:06:00 101 98-107 (mm ol/L) Final CO2 03/10/2023 05:06:00 22 22-32 (mmo l/L) Final Anion gap 03/10/2023 05:06:00 18 Above high normal 7- 15 (mmol/L) Final Glucose 03/10/2023 05:06:00 100 70-120 (mg /dL) Final Calcium 03/10/2023 05:06:00 9.0 8.4-10.2 ( mg/dL) Final Performing Location LABORATORY [facility] - [address] [place] [address]
--- OUTSIDE RECORDS SUMMARY | 2023-05-23 20:05 | External Medical Summary ---
Author Name Unknown Address Unknown Organization : Laboratory Report Ordering Provider Test Date Status MISHA VARGAS 03/11/2023 20:21:12 Final Observation Date Value Abnormality Reference (Units ) Status Glucose Point of Care 03/11/2023 20:21:12 123 Above high normal 70-120 (mg/dL) Final Performing Location
--- OUTSIDE RECORDS SUMMARY | 2023-05-23 20:05 | External Medical Summary ---
Author Name Unknown Address Unknown Organization : Laboratory Report Ordering Provider Test Date Status MISHA VARGAS 03/10/2023 07:19:23 Final Observation Date Value Abnormality Reference (Units ) Status Glucose Point of Care 03/10/2023 07:19:23 103 70-120 (mg/dL) Final Performing Location
--- OUTSIDE RECORDS SUMMARY | 2023-05-23 20:05 | External Medical Summary ---
Author Name Unknown Address Unknown Organization K01:[facility] [place] [place] [address] [place] [address] Laboratory Report Ordering Provider Test Date Status ZORAIDA MASON 03/10/2023 20:20:00 Final Observation Date Value Abnormality Reference (Units ) Status Hepatitis B virus core Ab [Presence] in Serum 03/10/2023 20:20:00 Negative Negative Final Performing Location [facility] [place] [place] [address] [facility] [address]
--- OUTSIDE RECORDS SUMMARY | 2023-05-23 20:05 | External Medical Summary ---
Author Name Unknown Address Unknown Organization K01:LABORATORY [facility] [place] - [facility] [address] [facility] [address] Laboratory Report Ordering Provider Test Date Status ALICIA,MISHA 03/09/2023 10:49:00 Final Observation Date Value Abnormality Reference (Units ) Status WBC, Total 03/09/2023 10:49:00 8.26 4.00-10.80 (K/uL) Final RBC 03/09/2023 10:49:00 3.20 3.85-5.15 (M/uL) Final Hemoglobin 03/09/2023 10:49:00 9.5 Below low normal 12.0-15.3 (g/dL) Final HCT 03/09/2023 10:49:00 31.6 Below low normal 36.0-45.2 (%) Final MCV 03/09/2023 10:49:00 98.8 81.5-97.5 (fL) Final MCH 03/09/2023 10:49:00 29.7 27.0-34.0 (pg) Final MCHC 03/09/2023 10:49:00 30.1 32.0-36.0 (g/dL) Final RDW 03/09/2023 10:49:00 17.7 11.5-15.5 (%) Final Platelets 03/09/2023 10:49:00 273 140-400 (K/uL) Final MPV 03/09/2023 10:49:00 9.7 6.6-11.1 (fL) Final Nucleated erythrocytes/100 leukocytes [Ratio] in Blood by Automated count 03/09/2023 10:49:00 0 <=0 (/100 WBCs) Final Performing Location LABORATORY [facility] [place] - [address] [facility] [address]
--- OUTSIDE RECORDS SUMMARY | 2023-05-23 20:05 | External Medical Summary ---
Author Name Unknown Address Unknown Organization K01:LABORATORY [facility] - [facility] [address] [facility] [address] Laboratory Report Ordering Provider Test Date Status CHRISTINE PETERSON 03/11/2023 05:23:00 Final Observation Date Value Abnormality Reference (Units ) Status WBC, Total 03/11/2023 05:23:00 7.49 4.00-10.80 (K/uL) Final RBC 03/11/2023 05:23:00 2.95 3.85-5.15 (M/uL) Final Hemoglobin 03/11/2023 05:23:00 8.6 Below low normal 12.0-15.3 (g/dL) Final HCT 03/11/2023 05:23:00 29.1 Below low normal 36.0-45.2 (%) Final MCV 03/11/2023 05:23:00 98.6 81.5-97.5 (fL) Final MCH 03/11/2023 05:23:00 29.2 27.0-34.0 (pg) Final MCHC 03/11/2023 05:23:00 29.6 32.0-36.0 (g/dL) Final RDW 03/11/2023 05:23:00 17.4 11.5-15.5 (%) Final Platelets 03/11/2023 05:23:00 214 140-400 (K/uL) Final MPV 03/11/2023 05:23:00 10.3 6.6-11.1 (fL) Final Nucleated erythrocytes/100 leukocytes [Ratio] in Blood by Automated count 03/11/2023 05:23:00 0 <=0 (/100 WBCs) Final Performing Location LABORATORY [facility] - [address] [place] [address]
--- OUTSIDE RECORDS SUMMARY | 2023-05-23 20:05 | External Medical Summary ---
Author Name Unknown Address Unknown Organization K01:LAB[facility]ORY [facility] - [address] [place] [address] [place] [address] Laboratory Report Ordering Provider Test Date Status ZORAIDA MASON 03/10/2023 20:20:00 Final Observation Date Value Abnormality Reference (Units ) Status Hep B Core IgM 03/10/2023 20:20:00 Negative Negat lucho Final Performing Location LAB[facility] - [address] [place] [address]
--- OUTSIDE RECORDS SUMMARY | 2023-05-23 20:05 | External Medical Summary ---
Author Name Unknown Address Unknown Organization K01:LABORATORY [facility] - [address] [facility] [place] [address] Laboratory Report Ordering Provider Test Date Status ALICIA,MISHA 03/09/2023 10:49:00 Final Observation Date Value Abnormality Reference (Units ) Status SYNC LEUKOCYTES IN BLOOD BY AUTOMATED COUNT 03/09/2023 10:49:00 8.26 4.00-10.80 (K/uL) Final Segs 03/09/2023 10:49:00 70.5 40.0-75.0 (%) Final Lymphs % 03/09/2023 10:49:00 11.3 Below low normal 18.0-42.0 (%) Final Monos 03/09/2023 10:49:00 9.3 1.0-11.0 (%) Final Eosinophils 03/09/2023 10:49:00 5.4 0.0-6.0 (%) Final Basos 03/09/2023 10:49:00 1.1 0.0-2.0 (%) Final Immature Granulocyte, Percent 03/09/2023 10:49:00 2.4 Above high normal 0.0-2.0 (%) Final Absolute Segs 03/09/2023 10:49:00 5.82 1.80-7.70 (K/uL) Final Lymphs, absolute 03/09/2023 10:49:00 0.93 Below low normal 1.00-4.80 (K/ul) Final Monos, Abs 03/09/2023 10:49:00 0.77 0.00-1.10 (K/uL) Final Eos, Abs 03/09/2023 10:49:00 0.45 0.00-0.70 (K/uL) Final Basos, Abs 03/09/2023 10:49:00 0.09 0.00-0.20 (K/uL) Final Immature Granulocytes, Number 03/09/2023 10:49:00 0.20 0.00-0.20 (K/uL) Final Performing Location LABORATORY [facility] - [facility] [place] [address]
--- OUTSIDE RECORDS SUMMARY | 2023-05-23 20:05 | External Medical Summary ---
Author Name Unknown Address Unknown Organization : Laboratory Report Ordering Provider Test Date Status ZORAIDA MASON 03/10/2023 20:20:00 Final Observation Date Value Abnormality Reference (Units ) Status Performing Location
--- OUTSIDE RECORDS SUMMARY | 2023-05-23 20:05 | External Medical Summary ---
Author Name Unknown Address Unknown Organization K01:[facility] [place] [address] [facility] [address] Laboratory Report Ordering Provider Test Date Status ZORAIDA MASON 03/10/2023 20:20:00 Final Observation Date Value Abnormality Reference (Units ) Status Hep B surface Ag 03/10/2023 20:20:00 Negative Neg ative Final Performing Location LAB[facility] - [address] [facility] [address]
--- OUTSIDE RECORDS SUMMARY | 2023-05-23 20:05 | External Medical Summary ---
Author Name Unknown Address Unknown Organization : Laboratory Report Ordering Provider Test Date Status ELI OLIVA 03/12/2023 07:21:09 Final Observation Date Value Abnormality Reference (Units ) Status Glucose Point of Care 03/12/2023 07:21:09 97 70-120 (mg/dL) Final Performing Location
--- OUTSIDE RECORDS SUMMARY | 2023-05-23 20:05 | External Medical Summary ---
Author Name Unknown Address Unknown Organization : Laboratory Report Ordering Provider Test Date Status MISHA VARGAS 03/10/2023 21:40:20 Final Observation Date Value Abnormality Reference (Units ) Status Glucose Point of Care 03/10/2023 21:40:20 122 Above high normal 70-120 (mg/dL) Final Performing Location
--- OUTSIDE RECORDS SUMMARY | 2023-05-23 20:05 | External Medical Summary ---
Author Name Unknown Address Unknown Organization K01:LABORATORY [facility] - [address] [place] [address] Laboratory Report Ordering Provider Test Date Status CHRISTINE PETERSON 03/10/2023 05:06:00 Final Observation Date Value Abnormality Reference (Units ) Status Magnesium 03/10/2023 05:06:00 2.5 1.5-2.6 (m g/dL) Final Performing Location LAB[facility] - [address] [place] [address]
--- OUTSIDE RECORDS SUMMARY | 2023-05-23 20:05 | External Medical Summary ---
Author Name Unknown Address Unknown Organization : Laboratory Report Ordering Provider Test Date Status MISHA VARGAS 03/11/2023 16:26:55 Final Observation Date Value Abnormality Reference (Units ) Status Glucose Point of Care 03/11/2023 16:26:55 89 70-120 (mg/dL) Final Performing Location
--- OUTSIDE RECORDS SUMMARY | 2023-05-23 20:06 | External Medical Summary ---
Author Name Unknown Address Unknown Organization K01:[facility]ORY [facility] [place] - [address] [facility] [address] Laboratory Report Ordering Provider Test Date Status CHRISTINE PETERSON 03/09/2023 06:04:00 Final Observation Date Value Abnormality Reference (Units ) Status WBC, Total 03/09/2023 06:04:00 7.59 4.00-10.80 (K/uL) Final RBC 03/09/2023 06:04:00 3.44 3.85-5.15 (M/uL) Final Hemoglobin 03/09/2023 06:04:00 9.9 Below low normal 12.0-15.3 (g/dL) Final HCT 03/09/2023 06:04:00 34.6 Below low normal 36.0-45.2 (%) Final MCV 03/09/2023 06:04:00 100.6 81.5-97.5 (fL) Final MCH 03/09/2023 06:04:00 28.8 27.0-34.0 (pg) Final MCHC 03/09/2023 06:04:00 28.6 32.0-36.0 (g/dL) Final RDW 03/09/2023 06:04:00 17.7 11.5-15.5 (%) Final Platelets 03/09/2023 06:04:00 284 140-400 (K/uL) Final MPV 03/09/2023 06:04:00 10.4 6.6-11.1 (fL) Final Nucleated erythrocytes/100 leukocytes [Ratio] in Blood by Automated count 03/09/2023 06:04:00 0 <=0 (/100 WBCs) Final Performing Location [facility]ORY [facility] [place] - [address] [place] [address]
--- OUTSIDE RECORDS SUMMARY | 2023-05-23 20:06 | External Medical Summary ---
Author Name Unknown Address Unknown Organization K01:LABORATORY [facility] [place] - [address] [place] [address] Laboratory Report Ordering Provider Test Date Status CHRISTINE PETERSON 03/09/2023 06:59:00 Final Exclude Heart Failure: <300 pg/mL
Diagnose Heart Failure:
Age <50 yr: >450 pg/mL
50-75 yr: >900 pg/mL
>75 yr: >1800 pg/mL
GFR is 30-59 mL/min: >1200 pg/mL or Age- adjusted values
GFR <30 mL/min: do not use, not reliable

Prognostic threshold: 1000 pg/mL Observation Date Value Abnormality Reference (Units ) Status BNP, Pro-hormone 03/09/2023 06:59:00 [id number] Above high no rmal <300 (pg/mL) Final Performing Location LABORATORY [facility] [place] - [address] [place] [address]
--- OUTSIDE RECORDS SUMMARY | 2023-05-23 20:06 | External Medical Summary ---
Author Name Unknown Address Unknown Organization K01:[facility] [place] [place] - [address] [place] [address] Laboratory Report Ordering Provider Test Date Status CHRISTINE PETERSON 03/09/2023 06:04:00 Final Observation Date Value Abnormality Reference (Units ) Status HbA1C 03/09/2023 06:04:00 4.9 4.0-5.6 (% ) Final The use of HbA1c to monitor glycemic status is based on normal hemoglobin and HbA composition. This test should not be used in patients with abnormal hemoglobin that affects the half life of the red blood cell or the in vivo glycation rates. Glucose, estimated average 03/09/2023 06:04:00 94 <126 (mg/dL) Final Performing Location [facility] [place] [place] - [address] [place] [id number]
--- OUTSIDE RECORDS SUMMARY | 2023-05-23 20:06 | External Medical Summary ---
Author Name Unknown Address Unknown Organization K01:[facility] [address] [place] [address] Laboratory Report Ordering Provider Test Date Status CHRISTINE PETERSON 03/09/2023 05:00:55 Final Observation Date Value Abnormality Reference (Units ) Status Methicillin resistant Staphylococcus aureus (MRSA) DNA [Presence] in Nose by DIMAS with probe detection 03/09/2023 05:00:55 Positive Abnormal Negative Final Methicillin resistant Staphy lococcus aureus detected by PCR (amplified probe). MRSA-This patient may require isolation. Please refer to Infection Control isolation policy. Performing Location [facility] - [address] [place] [id number]
[2023-05-23] MEDS: DOCUSATE SODIUM 100 MG CAP PO SCH (20:37)
[2023-05-23] MEDS: PANTOprazole 40 MG TAB PO SCH (20:37)
[2023-05-23] MEDS: ATORVASTATIN 40 MG TAB PO SCH (20:37)
[2023-05-23] MEDS: NEPHROCAPS PO SCH (20:37)
[2023-05-23] MEDS: HEPARIN SOD 5,000 UNIT/0.5 ML VIAL SQ SCH (20:38)
[2023-05-23] MEDS: PREGABALIN 100 MG CAP PO SCH (20:57)
[2023-05-23] MEDS: MELATONIN 3 MG TAB PO SCH (20:57)
--- NOTE | 2023-05-23 21:50 | Dialysis Progress Note ---
Date of Service May 23, 2023 Assessment & Plan (1) Hemodialysis status: Plan: HD today using midodrine and prn pressor to support bp chemisties acceptable; acid base disturbances not severe aggressive uf to optimize respiratory status as tolerated >>> will increase UF target to 3.8L; believe this should be enough UF looking at how she's clinically improved to get through until 05/25 HD not anemic; no reported avf issues >not currently requiring binders (2) Acute respiratory failure with hypercapnia: Plan: improved w/ bipap and dialysis continue supportive care Admission and Anticipated Discharge Date Admission Date: May 23, 2023 Subjective seen on dialysis > tolerating 3.5 L uf goal well so far; no cramps or n/v; no sheikh; denies pain in abdomen chest musculoskeletal Review of Systems Review of Systems: All systems reviewed & are unremarkable except as noted in Subjective Physical Exam Constitutional: well developed, well nourished, + acute distress, + morbidly obese, + frail appearing, cooperative and comfortable Eyes: EOM intact bilaterally ENMT: Ears: + hearing impairment; no external ear abnormality Nose: no external nose abnormality Mouth: + dry oral mucous membranes Neck: no nuchal rigidity Respiratory: normal respiratory effort Auscultation: + diminished lung sounds Cardiovascular: Rate/Rhythm: regular rate (frequent pvcs) and regular rhythm Gastrointestinal (Abdomen): Inspection/Auscultation: normal bowel sounds Percussion/Palpation: abdomen soft; abdomen nontender Musculoskeletal: Extremities: strength 5/5 throughout Skin: no rashes, warm and dry Psychiatric: Orientation: alert, oriented to person and oriented to place Results & Data Vital Signs (Past 12 Hours) Vital Signs Temp Pulse Pulse Pulse Resp BP BP 05/23/23 21:33 57 L 16 05/23/23 21:00 36.4 C L 55 L 18 134/37 L 05/23/23 20:00 36.4 C L 60 18 112/62 05/23/23 19:18 49 L 05/23/23 19:00 36.2 C L 53 L 15 102/46 L 05/23/23 18:30 36.5 C 65 102/60 05/23/23 18:00 36.1 C L 65 19 05/23/23 18:00 58 L 124/71 05/23/23 17:45 36.1 C L 56 L 17 05/23/23 17:31 36.1 C L 49 L 14 05/23/23 17:31 147/70 H 05/23/23 17:30 36.1 C L 48 L 14 05/23/23 17:30 51 L 147/70 H 05/23/23 17:15 36.1 C L 56 L 15 05/23/23 17:00 137/60 05/23/23 17:00 36.1 C L 47 L 16 05/23/23 17:00 55 L 137/60 05/23/23 16:45 36.2 C L 58 L 14 05/23/23 16:31 36.2 C L 57 L 13 05/23/23 16:31 148/80 H 05/23/23 16:30 36.2 C L 58 L 16 05/23/23 16:30 57 L 148/80 H 05/23/23 16:15 36.2 C L 60 14 05/23/23 16:01 36.4 C L 58 L 17 05/23/23 16:01 153/60 H 05/23/23 16:00 36.4 C L 60 18 05/23/23 16:00 56 L 05/23/23 16:00 56 L 153/60 H 05/23/23 15:47 36.4 C L 59 L 20 05/23/23 15:47 190/77 H 05/23/23 15:45 36.5 C 56 L 17 05/23/23 15:39 36.5 C 55 L 21 05/23/23 15:39 139/65 05/23/23 15:30 36.5 C 55 L 23 05/23/23 15:30 51 L 139/65 05/23/23 15:15 36.6 C 54 L 22 05/23/23 15:01 36.7 C 65 16 05/23/23 15:01 104/41 L 05/23/23 15:00 36.7 C 54 L 18 05/23/23 15:00 55 L 104/41 L 05/23/23 14:51 36.7 C 56 L 17 05/23/23 14:51 82/44 L 05/23/23 14:45 36.7 C 58 L 17 05/23/23 14:45 36.8 C 53 L 05/23/23 14:42 05/23/23 14:42 05/23/23 14:30 36.7 C 67 19 05/23/23 14:20 36.7 C 57 L 14 05/23/23 14:19 36.7 C 58 L 16 05/23/23 14:19 95/39 L 05/23/23 14:14 56 L 17 05/23/23 14:14 79/49 L 05/23/23 14:10 6 L 05/23/23 14:08 05/23/23 13:50 50 L 23 05/23/23 13:45 44 L 16 05/23/23 13:45 104/55 L 05/23/23 13:40 34 L 20 05/23/23 13:30 59 L 18 05/23/23 13:30 120/50 L 05/23/23 13:29 59 L 18 05/23/23 13:15 47 L 20 05/23/23 13:15 105/55 L 05/23/23 13:00 48 L 25 H 05/23/23 13:00 101/44 L 05/23/23 12:46 51 L 18 05/23/23 12:46 102/41 L 05/23/23 12:42 54 L 05/23/23 12:31 55 L 16 05/23/23 12:31 89/46 L 05/23/23 12:30 57 L 17 05/23/23 12:29 57 L 19 89/46 L 05/23/23 12:16 59 L 16 05/23/23 12:16 93/58 L 05/23/23 12:01 17 05/23/23 12:01 125/49 L 05/23/23 12:00 17 05/23/23 11:46 17 05/23/23 11:46 105/45 L 05/23/23 11:31 104/55 L 05/23/23 11:31 67 16 05/23/23 11:30 79 22 05/23/23 11:22 49 L 24 05/23/23 11:22 103/41 L 05/23/23 11:15 59 L 18 05/23/23 11:14 05/23/23 10:56 18 98/49 L 05/23/23 10:46 61 20 05/23/23 10:46 98/49 L 05/23/23 10:33 60 18 05/23/23 10:33 97/56 L 05/23/23 10:31 60 18 05/23/23 10:31 80/33 L 05/23/23 10:30 63 20 05/23/23 10:00 66 19 05/23/23 09:50 61 18 Pulse Ox O2 Del Method O2 Flow Rate FiO2 05/23/23 21:33 95 26 05/23/23 21:00 95 BiPAP 05/23/23 20:00 96 Oxymask 05/23/23 19:18 05/23/23 19:00 96 Oxymask 05/23/23 18:30 05/23/23 18:00 98 05/23/23 18:00 05/23/23 17:45 100 05/23/23 17:31 100 05/23/23 17:31 05/23/23 17:30 100 05/23/23 17:30 05/23/23 17:15 100 05/23/23 17:00 05/23/23 17:00 100 05/23/23 17:00 05/23/23 16:45 99 05/23/23 16:31 98 05/23/23 16:31 05/23/23 16:30 99 05/23/23 16:30 05/23/23 16:15 99 05/23/23 16:01 98 05/23/23 16:01 05/23/23 16:00 97 05/23/23 16:00 05/23/23 16:00 05/23/23 15:47 95 05/23/23 15:47 05/23/23 15:45 97 05/23/23 15:39 95 05/23/23 15:39 05/23/23 15:30 96 05/23/23 15:30 05/23/23 15:15 97 05/23/23 15:01 95 05/23/23 15:01 05/23/23 15:00 94 05/23/23 15:00 05/23/23 14:51 95 05/23/23 14:51 05/23/23 14:45 93 05/23/23 14:45 05/23/23 14:42 Oxymask 3 05/23/23 14:42 Oxymask 3 05/23/23 14:30 96 05/23/23 14:20 94 05/23/23 14:19 94 05/23/23 14:19 05/23/23 14:14 93 05/23/23 14:14 05/23/23 14:10 95 05/23/23 14:08 95 05/23/23 13:50 91 05/23/23 13:45 92 05/23/23 13:45 05/23/23 13:40 94 05/23/23 13:30 90 05/23/23 13:30 05/23/23 13:29 90 26 05/23/23 13:15 91 05/23/23 13:15 05/23/23 13:00 90 05/23/23 13:00 05/23/23 12:46 91 05/23/23 12:46 05/23/23 12:42 05/23/23 12:31 90 05/23/23 12:31 05/23/23 12:30 90 05/23/23 12:29 90 BiPAP 05/23/23 12:16 90 05/23/23 12:16 05/23/23 12:01 97 05/23/23 12:01 05/23/23 12:00 96 05/23/23 11:46 93 05/23/23 11:46 05/23/23 11:31 05/23/23 11:31 93 05/23/23 11:30 93 05/23/23 11:22 95 05/23/23 11:22 05/23/23 11:15 92 26 05/23/23 11:14 91 05/23/23 10:56 93 BiPAP 05/23/23 10:46 92 05/23/23 10:46 05/23/23 10:33 92 05/23/23 10:33 05/23/23 10:31 92 05/23/23 10:31 05/23/23 10:30 93 05/23/23 10:00 92 05/23/23 09:50 97 40 Laboratory Results reviewed
[2023-05-24 04:40] LABS: Basophils # (auto) 0.11 K/uL (0.00-0.20); Eosinophils # (auto) 0.69 K/uL (0.00-0.50); Eosinophils % (auto) 6.1 %; Hematocrit (blood only) 44.6 % (37.0-47.0); Hemoglobin 14.4 g/dl (12.0-16.0); Immature Granulocytes # (auto) 0.11 K/uL (0.01-0.20); Lymphocytes # (auto) 0.83 K/uL (1.20-3.40); Lymphocytes % (auto) 7.3 %; Mean Corpuscular Hemoglobin 28.7 pg (25.0-34.0); Mean Corpuscular Hgb Conc 32.3 g/dL (32.0-36.0); Mean Platelet Volume 11.9 fL (9.4-12.4); Monocytes # (auto) 0.88 K/uL (0.11-0.59); Monocytes % (auto) 7.7 %; Neutrophils # (auto) 8.77 K/uL (1.40-6.50); Neutrophils % (auto) 76.9 %; Platelet Count 192 K/uL (130-400); RDW Coefficient of Variation 16.5 % (11.5-14.5); RDW Standard Deviation 53.5 fL (36.4-46.3); Red Blood Count 5.01 M/uL (4.20-5.40); White Blood Count 11.39 K/ul (4.8-10.8)
[2023-05-24 05:13] LABS: BUN Creatinine Ratio 4.2 (10-20); Bilirubin,Total 0.3 mg/dl (0.2-1.0); Calcium 9.8 mg/dl (8.6-10.3); Creatinine Clr Calc Pharmacy 10.2 ml/min; Est GFR (African American) 9.1 ml/min; Est GFR (Non-African American) 7.8 ml/min; Globulin 3.9 gm/dl (2.5-4.0); Magnesium 2.2 mg/dl (1.7-2.4); Phosphorus 5.2 mg/dl (2.5-4.9); Potassium 4.3 mmol/L (3.5-5.1); Total Protein 7.9 gm/dl (6.0-8.3)
[2023-05-24] MEDS: LEVOTHYROXINE SODIUM 125 MCG TABLET PO SCH (06:15)
[2023-05-24 07:20] LABS: A calco-baum cmplx NotReported Not Detected (NotDetected); Bact fragilis Not Reported Not Detected (NotDetected); Blood Culture Id Panel See PCR Comment (NotDetected); C auris Not Reported Not Detected (NotDetected); Calbicans Not Reported Not Detected (NotDetected); Candida glabrata Not Reported Not Detected (NotDetected); Candida krusei Not Reported Not Detected (NotDetected); Cneoformans/gatti Not Reported Not Detected (NotDetected); Cparapsilosis Not Reported Not Detected (NotDetected); E cloacae compx Not Reported Not Detected (NotDetected); Efaecalis Not Reported Not Detected (NotDetected); Efaecium Not Reported Not Detected (NotDetected); Enterobacterales Not Reported Not Detected (NotDetected); Escherichia coli Not Reported Not Detected (NotDetected); H influenzae Not Reported Not Detected (NotDetected); K aerogenes Not Reported Not Detected (NotDetected); Koxytoca Not Reported Not Detected (NotDetected); Kpneumoniae grp Not Reported Not Detected (NotDetected); Lmonocyt Not Reported Not Detected (NotDetected); N meningitidis Not Reported Not Detected (NotDetected); P aeruginosa Not Reported Not Detected (NotDetected); Proteus spp Not Reported Not Detected (NotDetected); Salmonella spp Not Reported Not Detected (NotDetected); Smarcescens Not Reported Not Detected (NotDetected); Staph lugdunensis Not Reported Not Detected (NotDetected); Staph spp. Not Reported DETECTED (NotDetected); Staphaureus Not Reported Not Detected (NotDetected); Staphepi Not Reported Not Detected (NotDetected); Stenmaltophilia Not Reported Not Detected (NotDetected); Strep agal(GrpB) Not Reported Not Detected (NotDetected); Strep pneum Not Reported Not Detected (NotDetected); Strep pyog (GrpA) Not Reported Not Detected (NotDetected); Strep spp Not Reported Not Detected (NotDetected)
[2023-05-24 07:30] LABS: Staphylococcus spp. DETECTED (NotDetected)
--- NOTE | 2023-05-24 08:11 | Critical Care Progress Note ---
Date of Service May 24, 2023 Assessment & Plan (1) Respiratory failure: (2) AMS (altered mental status): Plan Impression: 77-year-old female with end-stage renal disease on dialysis admitted with altered mental status which appears to be improving. She was mildly hypercarbic on presentation and has obesity hypoventilation syndrome however. Her x-ray does not demonstrate overt fluid overload and her oxygen requirement is not significantly elevated currently. She is status post emergent hemodialysis yesterday evening Recommendations: 1. Neurologic: Encephalopathy resolved. History of Parkinson's disease. Continue carbidopa levodopa 2. Cardiovascular: Hypotension: Unclear etiology. Will place on midodrine. No indication for pressors currently. Patient did demonstrate bradycardia during dialysis with occasional sinus pauses. She was asymptomatic. Continue telemetry. 3. Pulmonary: Likely obesity hypoventilation syndrome. Review of the patient's prior sleep studies revealed that in July 2019 she had an AHI of 82 with an oxygen saturation milagro of 79% with an optimal CPAP pressure of 12. 2 L/min oxygen bleed was required as well. Continue nightly CPAP at 12 cm of water with oxygen bleed. She is established with the [facility] sleep medicine clinic and will need to continue to follow with them. 4. ID: Blood cultures showing gram-positive cocci in clusters on 1 out of 2 bottles. PCR showed staph species detected. With 1 out of 2 cultures positive, this may represent a contaminant. Patient received vancomycin on presentation, will have pharmacy continue to diurese and and repeat cultures. Await final culture data. 5. Renal: Management per nephrology. Dialysis tolerated and plan again for Friday. 6. GI: Diet as tolerated. 7. Heme-onc: No current issues. 8. Endocrine: Glycemic control per protocol. Continue Synthroid. Patient appears to be hemodynamically stable. Her critical care issues are resolved. She can be transferred to the floor with telemetry under the direction of the primary service. Critical care services will sign off Admission and Anticipated Discharge Date Admission Date: May 23, 2023 Subjective Patient seen and examined. EMR reviewed. Discussed with patient and ICU nurse. Patient received urgent hemodialysis yesterday with 3 L ultrafiltration. She required Sridhar-Synephrine for only a few minutes during dialysis, otherwise her blood pressure tolerated dialysis well without difficulty. This morning she is on nasal cannula. She does not offer any new complaints. She states she is breathing fine. Review of Systems Review of Systems: All systems reviewed & are unremarkable except as noted in Subjective Physical Exam Constitutional: WD/WN, vitals as above + obese Neck: trachea midline, no thyromegaly Respiratory: no respiratory distress, no labored breathing, no cough and not tachypneic Auscultation: + crackles; no wheezes Cardiovascular: RRR, no murmur, no edema Gastrointestinal (Abdomen): normal bowel sounds, soft, nontender, no hepatosplenomegaly Musculoskeletal: Extremities: extremities normal to inspection Skin: no rashes, warm and dry Lymphatic: no cervical lymphadenopathy Results & Data Results & Data Vital Signs (Past 12 Hours) Vital Signs Temp Pulse Resp BP Pulse Ox O2 Del Method O2 Flow Rate 05/24/23 07:56 74 20 95 05/24/23 07:30 Nasal Cannula 2 05/24/23 07:02 36.9 C 56 L 22 93/43 L 92 Nasal Cannula 2 05/24/23 06:00 36.9 C 67 19 119/69 96 Nasal Cannula 2 05/24/23 05:00 36.8 C 55 L 18 134/54 L 99 BiPAP 05/24/23 04:00 36.9 C 58 L 16 116/56 L 95 BiPAP 05/24/23 03:16 54 L 16 92 05/24/23 03:00 36.9 C 58 L 12 111/78 92 BiPAP 05/24/23 02:00 36.9 C 54 L 20 97/32 L 96 BiPAP 05/24/23 01:00 36.8 C 54 L 18 110/47 L 95 BiPAP 05/24/23 00:00 36.7 C 51 L 17 106/57 L 97 BiPAP 05/24/23 00:00 57 L 05/23/23 23:09 52 L 16 95 05/23/23 23:00 36.6 C 57 L 16 87/44 L 95 BiPAP 05/23/23 22:37 Oxymask, BiPAP 05/23/23 22:08 36.6 C 52 L 18 106/48 L 96 BiPAP 05/23/23 21:33 57 L 16 95 05/23/23 21:00 36.4 C L 55 L 18 134/37 L 95 BiPAP FiO2 05/24/23 07:56 26 05/24/23 07:30 05/24/23 07:02 05/24/23 06:00 05/24/23 05:00 05/24/23 04:00 26 05/24/23 03:16 35 05/24/23 03:00 05/24/23 02:00 05/24/23 01:00 05/24/23 00:00 05/24/23 00:00 05/23/23 23:09 26 05/23/23 23:00 05/23/23 22:37 05/23/23 22:08 05/23/23 21:33 26 05/23/23 21:00 Critical Care Results & Data Vital Signs (Past 12 Hours) Vital Signs Temp Pulse Resp BP Pulse Ox O2 Del Method O2 Flow Rate 05/24/23 07:56 74 20 95 05/24/23 07:30 Nasal Cannula 2 05/24/23 07:02 36.9 C 56 L 22 93/43 L 92 Nasal Cannula 2 05/24/23 06:00 36.9 C 67 19 119/69 96 Nasal Cannula 2 05/24/23 05:00 36.8 C 55 L 18 134/54 L 99 BiPAP 05/24/23 04:00 36.9 C 58 L 16 116/56 L 95 BiPAP 05/24/23 03:16 54 L 16 92 05/24/23 03:00 36.9 C 58 L 12 111/78 92 BiPAP 05/24/23 02:00 36.9 C 54 L 20 97/32 L 96 BiPAP 05/24/23 01:00 36.8 C 54 L 18 110/47 L 95 BiPAP 05/24/23 00:00 36.7 C 51 L 17 106/57 L 97 BiPAP 05/24/23 00:00 57 L 05/23/23 23:09 52 L 16 95 05/23/23 23:00 36.6 C 57 L 16 87/44 L 95 BiPAP 05/23/23 22:37 Oxymask, BiPAP 05/23/23 22:08 36.6 C 52 L 18 106/48 L 96 BiPAP 05/23/23 21:33 57 L 16 95 05/23/23 21:00 36.4 C L 55 L 18 134/37 L 95 BiPAP FiO2 05/24/23 07:56 26 05/24/23 07:30 05/24/23 07:02 05/24/23 06:00 05/24/23 05:00 05/24/23 04:00 26 05/24/23 03:16 35 05/24/23 03:00 05/24/23 02:00 05/24/23 01:00 05/24/23 00:00 05/24/23 00:00 05/23/23 23:09 26 05/23/23 23:00 05/23/23 22:37 05/23/23 22:08 05/23/23 21:33 26 05/23/23 21:00 Lab & Micro Results (Past 24 Hours) RBC 5.01 M/uL (4.20-5.40) 05/24/23 WBC 11.39 K/ul (4.8-10.8) H 05/24/23 Hgb 14.4 g/dl (12.0-16.0) 05/24/23 Hct 44.6 % (37.0-47.0) 05/24/23 MCV 89.0 fL (80.0-100.0) 05/24/23 MCH 28.7 pg (25.0-34.0) 05/24/23 MCHC 32.3 g/dL (32.0-36.0) 05/24/23 RDW Standard Deviation 53.5 fL (36.4-46.3) H 05/24/23 RDW Coefficient of Variation 16.5 % (11.5-14.5) H 05/24/23 Plt Count 192 K/uL (130-400) 05/24/23 MPV 11.9 fL (9.4-12.4) 05/24/23 Neutrophils (%) (Auto) 76.9 % 05/24/23 Lymphocytes (%) (Auto) 7.3 % 05/24/23 Monocytes # (Auto) 0.88 K/uL (0.11-0.59) H 05/24/23 Eosinophils # (Auto) 0.69 K/uL (0.00-0.50) H 05/24/23 Immature Granulocyte % (Auto) 1.0 % 05/24/23 Neutrophils # (Auto) 8.77 K/uL (1.40-6.50) H 05/24/23 Lymphocytes # (Auto) 0.83 K/uL (1.20-3.40) L 05/24/23 Monocytes # (Auto) 0.88 K/uL (0.11-0.59) H 05/24/23 Eosinophils # (Auto) 0.69 K/uL (0.00-0.50) H 05/24/23 Basophils # (Auto) 0.11 K/uL (0.00-0.20) 05/24/23 Immature Granulocyte # (Auto) 0.11 K/uL (0.01-0.20) 4 Na 138 mmol/L (136-145) 05/24/23 K 4.3 mmol/L (3.5-5.1) 05/24/23 Cl 99 mmol/L (98-107) 05/24/23 CO2 28 mmol/L (21-32) 05/24/23 Anion Gap 11 (3-11) 05/24/23 BUN 21 mg/dl (6-23) 05/24/23 Creatinine 4.99 mg/dl (0.6-1.2) H* 05/24/23 Estimated GFR ( Amer) 9.1 ml/min 05/24/23 Estimated GFR (Non-Af Amer) 7.8 ml/min 05/24/23 BUN/Creatinine Ratio 4.2 (10-20) L 05/24/23 Glu 100 mg/dl (70-99(Fasting)) H 05/24/23 Ca 9.8 mg/dl (8.6-10.3) 05/24/23 Phosphorus Level 5.2 mg/dl (2.5-4.9) H 05/24/23 Total Bilirubin 0.3 mg/dl (0.2-1.0) 05/24/23 AST 21 U/L (13-39) 05/24/23 ALT 4 U/L (7-52) L 05/24/23 Alkaline Phosphatase 103 U/L (34-104) 05/24/23 TP 7.9 gm/dl (6.0-8.3) 05/24/23 Albumin 4.0 gm/dl (3.4-5.0) 05/24/23 Globulin 3.9 gm/dl (2.5-4.0) 05/24/23 Albumin/Globulin Ratio 1.0 (0.9-2) 05/24/23 Mg 2.2 mg/dl (1.7-2.4) 05/24/23 03:55 Calcium Level 9.8 mg/dl (8.6-10.3) 05/24/23 03:55 Prothromb Time International Ratio 0.9 (0.9-1.1) 05/23/23 09:3 1 Microbiology 05/23/23 09:45 Aerobic Blood Culture - Preliminary Blood Gram positive cocci clusters Diagnostic Findings (Past 24 Hours) Chest X-Ray 05/23/23 09:31 XR chest 1V portable CLINICAL HISTORY: sob TECHNIQUE: Single frontal radiograph of the chest was obtained. Comparison: Comparison is made to chest radiograph 03/05/2023 FINDINGS: No lines and tubes are seen. Cardiomegaly is noted. Prominence and cephalization of the vasculature is seen. Airspace opacities in the left upper lung and right lower lung. No evidence of pleural effusion or pneumothorax. IMPRESSION: 1. Cardiomegaly and mild pulmonary edema. 2. Airspace opacity in the left upper lung in right lower lung may represent atelectasis, aspiration, and/or pneumonia. ACT 112: Negative or not required by law. Electronically signed by: Gato Nix M.D. 05/23/2023 10:[address] 05/23/23 10:13 CT head/brain wo con CLINICAL HISTORY: 77 years-old Female with ams. Acutely altered mental status TECHNIQUE: Multiple axial CT images of the head were obtained without contrast. A dose lowering technique was utilized adhering to the principles of ALARA. CT DOSE: 625.8 mGy.cm COMPARISON: 06/12/2021. FINDINGS: No acute intracranial hemorrhage, midline shift, intracranial mass, hydrocephalus, territorial ischemia or abnormal extra-axial collection. Involutional changes with chronic microvascular ischemic disease. Cerebral vascular calcifications. The calvarium is intact. Severe mucoperiosteal thickening of the right maxillary and sphenoid sinuses compatible with chronic sinus disease. Trace mastoid effusions. Unremarkable soft tissues and orbits. IMPRESSION: 1. No acute intracranial abnormality or calvarial fracture. 2. Chronic paranasal sinus disease. ACT 112: Negative or not required by law. The above report was generated using voice recognition software. It may contain grammatical, syntax or spelling errors. Electronically signed by: Benito Stiles M.D. 05/23/2023 11:36 AM I & O Totals 24 Hours 05/23/23 05/24/23 05/25/23 06:59 06:59 07:59 Intake Total 472.575 / 472.575 Output Total 35 / 35 Balance 437.575 / 437.575 Cumulative 05/23/23 08:51 thru 05/24/23 06:00 Intake Total 472.575 Output Total 35 Balance 437.575 RT Ventilator Mngmt (Last Documented) Ventilator Ordered Settings Respiratory Rate 20 05/24/23 07:56 Fraction of Inspired Oxygen 26 05/24/23 07:56 Ventilator - PT Measurements Respiratory Rate 20 Coding Level of Care Code 68561 SUB INP/OBS CARE 350MIN Diagnoses Respiratory failure J96.01 Chronicity: acute Respiratory failure complication: hypoxia AMS (altered mental status) R41.82 (1) Respiratory failure Chronicity: acute Respiratory failure complication: hypoxia Qualified Code(s): J96.01 - Acute respiratory failure with hypoxia
[2023-05-24] MEDS ORDERED: VANCOMYCIN CONSULT ACTIVE PRN ×2 (08:17→08:35)
[2023-05-24] MEDS ORDERED: VANCOMYCIN HCL 1,500 MG in SODIUM CHLORIDE 0.9% 500 ML IV SCH (08:45)
[2023-05-24] MEDS: CHOLECALCIFEROL 125 MCG (5,000 UNITS) TAB PO SCH (08:52)
[2023-05-24] MEDS: SERTRALINE HCL 100 MG TABLET PO SCH (08:54)
--- NOTE | 2023-05-24 09:03 | Electrocardiogram Report ---
Test Reason : Blood Pressure : / mmHG Vent. Rate : 059 BPM Atrial Rate : 059 BPM P-R Int : 184 ms QRS Dur : 092 ms QT Int : 482 ms P-R-T Axes : 054 049 048 degrees QTc Int : 477 ms Sinus bradycardia with occasional Premature ventricular complexes Poor R wave progression, consider anterior MT vs. lead placement vs. LVH Abnormal ECG When compared with ECG of 23-MAY-2023 09:15, Premature ventricular complexes are now Present Confirmed by Cristhian Tanner ([id number]) on 05/24/2023 9:02:42 AM Referred By: REFERRED SELF Confirmed By:Cristhian Tanner
[2023-05-24] MEDS: VANCOMYCIN HCL 2,000 MG in SODIUM CHLORIDE 0.9% 500 ML IV STA (09:23)
--- NOTE | 2023-05-24 12:07 | Pharmacy Report ---
Pharmacy PK ABX Note - Date of Service May 24, 2023 - Assessment and Plan Assessment 77 year old F who was ordered cefepime + vancomycin yesterday. Vancomycin was discontinued prior to any doses being given and received 1 dose of cefepime prior to it's discontinuation. Blood cultures from 05/23/23 now growing gram positive cocci which BCID2 PCR could only identify as staph species (NOT MRSA). MRSA nasal swab is positive. Despite this provider would still like to start vancomycin until repeat cultures show no growth. Mild leukocytosis. Repeat cultures drawn today. Spoke with RN and residual urine output is very minimal (~10 cc overnight). Patient has ESRD on HD MWF with next session planned for 05/26/23. Plan Vancomycin * Loading dose: 2000 mg IV x 1 * Dose per levels for HD * Random level ordered with AM labs 05/25 prior to next HD session Pharmacy will continue to follow and will adjust dose/frequency as necessary. Thank you. Pharmacy has transitioned to AUC monitoring for vancomycin. AUC/MOOK is the preferred PK/PD target and is associated with decreased risk of nephrotoxicity compared to traditional trough targets.
[2023-05-24] MEDS ORDERED: CEFEPIME 1,000 MG in SYRINGE 0 ML IV SCH (16:00)
--- NOTE | 2023-05-24 18:00 | Hospitalist Progress Note ---
Date of Service May 24, 2023 Assessment & Plan (1) Acute respiratory failure with hypercapnia: (2) Metabolic encephalopathy: (3) Hypotension: Plan: Acute on chronic HFpEF. ?Possible pneumonia. ?Underlying obesity hypoventilation syndrome WBC: 13, lactate: 2.0, procalcitonin: 0.6. POC ABG: pH 7.36, pCO2: 52, pO2: 105, HCO3: 30 CXR: Cardiomegaly and mild pulmonary edema. Airspace opacity in the left upper lung in right lower lung may represent atelectasis, aspiration, and/or pneumonia. CT head: No acute intracranial findings During ER course patient became hypotensive with BP 89/46 MAP 64. Was given 500 mL NSS bolus with BP up to104/41 In ER given cefepime Spoke with dock superintendent Dr. Forman as well as barrel drainer, Dr. Tobar regarding hypotension and need for HD. Will admit to ICU for possible as needed pressors to support BP so can get HD today Continue BiPAP. Repeat ABG N.p.o. for now on BiPAP Will continue cefepime for now Admit ICU Further management per dock superintendent 05/23 back to baseline mental status continue CPAP at HS on Midodrine blood culture (+) 03/18 bottles, gram positive cocci repeat blood cultures pending on Vanco IV (4) Sinus bradycardia: Plan: HR noted 40s-50s in ER Monitor on telemetry 05/23 will having episodes of sinus bradycardia in the 40s TSH normal not on B blockers will order echo, Cardio consult (5) End-stage renal disease (ESRD): Plan: On HD Nephrology consult. (6) DM type 2 (diabetes mellitus, type 2): Plan: Diet controlled A1c 4.9 on 02/2023. Of note patient on HD Monitor BSG's (7) Anemia: Plan: Anemia chronic disease. Iron deficiency anemia H/H: 13.5/41. Hgb was 13.8 on 05/14/2023 and 9.6 on 04/01/2023 On iron supplement (8) Parkinson disease: Plan: Plan to continue carbidopa levodopa (9) Hypothyroidism: Plan: TSH: 2.0 Continue levothyroxine (10) RENÉ (obstructive sleep apnea): Plan: Currently on BiPAP. When able to be off BiPAP plan to resume CPAP at bedtime DVT Prophylaxis Heparin SQ Full Code as per discussion with pt's Follows with Dr Villanueva for routine care Admission and Anticipated Discharge Date Admission Date: May 23, 2023 Subjective ff up for encephalopathy, etc seen resting in bed, alert, awake, oriented watching TV comfortable states she feels fine overall no chest pain, dyspnea, palpitations, dizziness no abdominal pain, nausea/vomiting no other symptoms Review of Systems Review of Systems: all noted and negative except for above Physical Exam Physical Exam: General- oriented x 3, not in distress, speaks in sentences with no effort or accessory muscle use Eyes- anicteric Neck- no JVD Lungs- clear breath sounds bilaterally, no rales/wheezes Heart- normal rate, regular rhythm; no murmurs Abdomen- normal bowel sounds, nondistended, soft, nontender Extremities- no pretibial edema, no calf tenderness Neuro- alert, oriented x 3; no gross focal neurologic deficits Skin- warm & dry Results & Data Results & Data Vital Signs (Past 12 Hours) Vital Signs Temp Pulse Resp BP Pulse Ox O2 Del Method O2 Flow Rate 05/24/23 16:45 36.9 C 05/24/23 15:13 53 L 19 108/59 L 92 Nasal Cannula 2 05/24/23 13:38 53 L 15 97 05/24/23 13:00 37.0 C 05/24/23 12:33 53 L 15 105/52 L 93 Nasal Cannula 2 05/24/23 12:01 55 L 16 98/59 L 94 Nasal Cannula 2 05/24/23 10:26 37.0 C 62 20 109/62 91 Nasal Cannula 2 05/24/23 09:10 55 L 18 116/53 L 94 Nasal Cannula 2 05/24/23 08:01 37.0 C 54 L 22 105/56 L 95 Nasal Cannula 2 05/24/23 07:56 74 20 95 05/24/23 07:30 Nasal Cannula 2 05/24/23 07:02 36.9 C 56 L 22 93/43 L 92 Nasal Cannula 2 05/24/23 06:00 36.9 C 67 19 119/69 96 Nasal Cannula 2 FiO2 05/24/23 16:45 05/24/23 15:13 05/24/23 13:38 35 05/24/23 13:00 05/24/23 12:33 05/24/23 12:01 05/24/23 10:26 05/24/23 09:10 05/24/23 08:01 05/24/23 07:56 26 05/24/23 07:30 05/24/23 07:02 05/24/23 06:00 all noted and reviewed including below (3) Hypotension Hypotension type: unspecified hypotension type Qualified Code(s): I95.9 - Hypotension, unspecified (7) Anemia Anemia type: unspecified type Qualified Code(s): D64.9 - Anemia, unspecified
--- NOTE | 2023-05-25 11:43 | Cardiology Consultation ---
Date of Consultation May 25, 2023 Assessment & Plan (1) Sinus bradycardia: 77-year-old female with a history of Parkinson's disease and end-stage renal disease for which she is on hemodialysis presented with somnolence and hypoxia. Clinically improved after emergent dialysis. Patient with previously noted history of sinus bradycardia, left bundle branch block (which appears to be intermittent at present) and frequent PVCs. Patient with 2 noted episodes of transient 2: 1 AV block on 05/22. Transient hypotension noted on presentation which has since resolved. Echocardiogram with stable findings. At present I recommend ongoing observation on telemetry. Patient not physically active at baseline, appears to be mostly bedbound and does not transfer. Agree with trial of midodrine for blood pressure support to allow for dialysis. Patient with noted "throat burning" on review of systems today. Recommend screening for strep pharyngitis. Viral panel already performed and was negative. History of Present Illness Attending Physician: Jacobo Mcclendon MD History of Present Illness Kami Hassan is a 77-year-old female seen in cardiology consultation per the re quest of Dr. Mcclendon for the evaluation of bradycardia. Patient admitted via the emergency department on 05/23/2023 having been transferred via EMS from [facility] due to concerns of somnolence and hypoxia. On presentation, patient required noninvasive positive pressure ventilation with BiPAP and was found to have a minimally elevated pCO2 with initial blood gas including pH of 7.36, pCO2 52, pO2 105, bicarb 30. She underwent emergent dialysis the evening of 05/23/2023 with removal of 3.8 L of fluid.Blood pressure at completion of treatment was 102/60. Per review of dialysis nursing note, sinus bradycardia with frequent PVCs noted throughout dialysis with noted transient episode of second-degree AV block. Subsequent EKG performed 05/23/2023 at 1836 revealed sinus bradycardia 59 bpm with frequent PVCs. Compared to previous, sinus rhythm with QRS duration of 92 ms had replaced previously noted left bundle branch block. Review of telemetry thus far during this hospital stay reveals predominant underlying rhythm of sinus bradycardia in the upper 40s to 50s with occasional to frequent PVCs. On 05/23/2023 at 1914 the patient developed transient 2-1 AV block with a total of 2 dropped QRS complexes with offset to sinus bradycardia without definite associated symptoms. Recent fever noted at longterm. Receives dialysis through an AV fistula. PAST MEDICAL HISTORY: 1. Diastolic dysfunction with normal LV systolic function 2. Obstructive sleep apnea with a history of noncompliance to CPAP 3. High likelihood of obesity hypoventilation 4. Chronic left bundle branch block 5. Obesity 6. Stage 3 chronic kidney disease. 7. Diabetes 8. Parkinson's disease Allergies Allergy/AdvReac Type Severity Reaction Status Date / Time No Known Allergies Allergy Verified 03/05/23 12:17 Home Medications Medication Instructions Recorded Confirmed Type aspirin 81 mg tablet,delayed 162 mg PO QAM 11/15/21 05/23/23 History release atorvastatin 80 mg tablet 80 mg PO QPM 11/15/21 05/23/23 History carbidopa 25 mg-levodopa 100 mg 1 tab PO TIDM 11/15/21 05/23/23 History tablet docusate sodium 100 mg capsule 100 mg PO BID 11/15/21 05/23/23 History (Colace) isosorbide mononitrate 30 mg 30 mg PO QPM 11/15/21 05/23/23 History tablet,extended release 24 hr levothyroxine 125 mcg tablet 125 mcg PO QAM 11/15/21 05/23/23 History lidocaine-prilocaine 2.5 %-2.5 % 1 applic topical DIRECTED PRN 1 11/15/21 05/23/23 History topical cream HR PRIOR TO DIALYSIS pregabalin 100 mg capsule 100 mg PO BID 11/15/21 05/23/23 History sertraline 100 mg tablet 100 mg PO DAILY 11/15/21 05/23/23 History vitamin B complex-vitamin C-folic 1 tab PO QPM 04/16/22 05/23/23 History acid 0.8 mg tablet (Nanci-Samuel) pantoprazole 20 mg tablet,delayed 20 mg PO BID 05/23/22 05/23/23 History release acetaminophen 325 mg tablet 650 mg PO Q6H PRN Pain 09/05/22 05/23/23 History (Tylenol) epinephrine 0.3 mg/0.3 mL 0.3 mg IM DIRECTED PRN Allergic 09/05/22 05/23/23 History injection, auto-injector (EpiPen) Reaction hydrocortisone 2.5 % topical cream 1 applic NV DAILY PRN Hemorrhoids 09/05/22 05/23/23 History with perineal applicator meclizine 12.5 mg tablet 12.5 mg PO TID PRN Dizziness 09/05/22 05/23/23 History melatonin 10 mg tablet 10 mg PO HS 09/05/22 05/23/23 History nystatin 100,000 unit/gram topical 1 applic EXT BID #30 grams 09/09/22 05/23/23 Rx powder (Nystop) ferric citrate 210 mg iron tablet 210 mg PO TIDM 01/21/23 05/23/23 History (Auryxia) fluticasone furoate 200 1 inh inhalation DAILY 01/21/23 05/23/23 History mcg-vilanterol 25 mcg/dose inhalation powder (Breo Ellipta) Hemorroid Supp 1 supp NV DIRECTED PRN 03/05/23 05/23/23 History Hemorrhoids cholecalciferol (vitamin D3) 125 125 mcg PO DAILY 05/23/23 05/23/23 History mcg (5,000 unit) tablet (Vitamin D3) Patient History Medical History Hypothyroidism Hypotension Elevated troponin I level End stage chronic kidney disease AV fistula R arm Limb alert care status R arm History of recent hospitalization d/c 09/09/22>per medical record, pt sent to ER at [facility] following dialysis for reddened sores on her buttocks. Admitting dx was enterococcus UTI, decubitus ulcer and sacral cellulitis. Difficult intravenous access Black stools Mobility impaired pt non compliant with hx pt treatments / PT IS IN WHEELCHAIR/TOTAL ASSIST Poor short term memory LUMMI (hard of hearing) COPD (chronic obstructive pulmonary disease) no medications for currently History of stroke 2019- pts spouse poor historian pt denies hx stroke History of anesthesia reaction "hard time waking up" Hx: recurrent pneumonia History of COVID-19 ? early 2021- mild congestion, no hospitalization, no current issues Non-ST elevation TX (NSTEMI) pt spouse not sure/ mild ? remembers something mentioned in hx/ ? details ESRD (end stage renal disease) on dialysis tues, thur & sat ([facility]) Aspiration pneumonia HX Morbid obesity Parkinson disease Rheumatoid arthritis ? current status/no meds for Chronic diastolic heart failure EF 50% on 01/2020 echo RACHEL (iron deficiency anemia) Subdural hematoma hx fall 2019 - tx to [facility]/no surgical intervention LBBB (left bundle branch block) RENÉ on CPAP Depression Meniere's disease Generalized anxiety disorder Dyslipidemia Restless leg syndrome Diabetes mellitus, type II hx / NO MEDS HTN (hypertension) Surgical History Hx of arteriovenostomy for renal dialysis right arm History of tubal ligation History of carpal tunnel surgery B/L History of orthopedic surgery " bilat heel surgery" H/O sinus surgery Hx of total knee arthroplasty B/L Family History Other AAA (abdominal aortic aneurysm) Diabetes Family history non-contributory Hypertension Myotonic dystrophy Social History Smoking Status: Former smoker Tobacco Type: Cigarettes Cigarettes Per Day: 0.25ppd; Smoking End Date: 25 years [employer]; Second Hand Exposure: No; Do You Dip or Chew Tobacco: No; Tobacco Cessation Education Requested by Patient: No Hx Alcohol Use: No Hx Substance Use: No Preferred Language: Vincentian Communication Ability: Impaired Communication Ability Comment: pt sometimes has difficulty understanding things, is POA Exploration Driller Required: No Beliefs That Will Affect Care: None marital status: Current Living Situation: Retirement Current Living Situation Comment: Lives at home with , bed bound Feels Safe at Home: Yes Safety Concerns: Feels Safe At This Time Assistive Devices: CPAP Review of Systems Review of Systems: All systems reviewed & are unremarkable except as noted in HPI & below Ear, Nose, Mouth, Throat: Subjective: "Throat burning ". Physical Exam Physical Exam: Hard of hearing Constitutional: Chronically ill in appearance without acute distress Respiratory: normal respiratory effort, lungs clear to auscultation Cardiovascular: RRR, no murmur, no edema Gastrointestinal (Abdomen): normal bowel sounds, soft, nontender, no hepatosplenomegaly Neurologic: PERRL, EOMI, accommodation nl, no face palsy, no dysarthria Results & Data Vital Signs (Past 12 Hours) Vital Signs Temp Pulse Pulse Resp BP Pulse Ox O2 Del Method 05/25/23 11:29 36.7 C 48 L 20 136/77 92 Nasal Cannula 05/25/23 08:00 54 L 05/25/23 07:36 36.3 C L 49 L 18 119/52 L 94 Nasal Cannula 05/25/23 04:00 36.9 C 56 L 20 96/52 L 97 CPAP 05/25/23 00:00 102/56 L 05/24/23 23:58 36.0 C L 48 L 20 97 CPAP 05/24/23 23:56 56 L 05/24/23 22:44 46 L O2 Flow Rate 05/25/23 11:29 2 05/25/23 08:00 05/25/23 07:36 2 05/25/23 04:00 05/25/23 00:00 05/24/23 23:58 05/24/23 23:56 05/24/23 22:44 Laboratory Results Laboratory studies performed 05/24/2023 included WBC count of 11.39, potassium 4.3, creatinine 4.99 No troponin levels were drawn, lactate on presentation was 2.0 Chest x-ray on presentation mild pulmonary edema Diagnostic Findings Echocardiogram performed 05/25/2023 and interpret independently: Mild concentric left ventricular hypertrophy, septal motion consistent with conduction abnormality, LV wall motion otherwise normal, low normal LVEF in the range of 50 to 55%, mild aortic valve sclerosis without stenosis, grade II diastolic dysfunction, trace mitral regurgitation, unchanged compared to 03/07/2023
--- NOTE | 2023-05-25 15:23 | Hospitalist Progress Note ---
Date of Service May 25, 2023 Assessment & Plan (1) Acute respiratory failure with hypercapnia: (2) Metabolic encephalopathy: (3) Hypotension: Plan: Acute on chronic HFpEF. ?Possible pneumonia. ?Underlying obesity hypoventilation syndrome WBC: 13, lactate: 2.0, procalcitonin: 0.6. POC ABG: pH 7.36, pCO2: 52, pO2: 105, HCO3: 30 CXR: Cardiomegaly and mild pulmonary edema. Airspace opacity in the left upper lung in right lower lung may represent atelectasis, aspiration, and/or pneumonia. CT head: No acute intracranial findings During ER course patient became hypotensive with BP 89/46 MAP 64. Was given 500 mL NSS bolus with BP up to104/41 In ER given cefepime Spoke with district manager postal service Dr. Forman as well as metals sales representative, Dr. Tobar regarding hypotension and need for HD. Will admit to ICU for possible as needed pressors to support BP so can get HD today Continue BiPAP. Repeat ABG N.p.o. for now on BiPAP Will continue cefepime for now Admit ICU Further management per district manager postal service 05/23 back to baseline mental status continue CPAP at HS on Midodrine blood culture (+) 03/18 bottles, gram positive cocci repeat blood cultures pending on Vanco IV 05/24 Continue midodrine Blood culture #1: Awaiting speciation Blood culture #2: Negative so far Continue Vanco IV Check for strep via throat swab (4) Sinus bradycardia: Plan: HR noted 40s-50s in ER Monitor on telemetry 05/23 will having episodes of sinus bradycardia in the 40s TSH normal not on B blockers will order echo, Cardio consult 05/24 Cardiology consulted Continue to monitor for now (5) End-stage renal disease (ESRD): Plan: On HD Nephrology consult. (6) DM type 2 (diabetes mellitus, type 2): Plan: Diet controlled A1c 4.9 on 02/2023. Of note patient on HD Monitor BSG's (7) Anemia: Plan: Anemia chronic disease. Iron deficiency anemia H/H: 13.5/41. Hgb was 13.8 on 05/14/2023 and 9.6 on 04/01/2023 On iron supplement (8) Parkinson disease: Plan: Plan to continue carbidopa levodopa (9) Hypothyroidism: Plan: TSH: 2.0 Continue levothyroxine (10) RENÉ (obstructive sleep apnea): Plan: Currently on BiPAP. When able to be off BiPAP plan to resume CPAP at bedtime DVT Prophylaxis Heparin SQ Full Code as per discussion with pt's Follows with Dr Villanueva for routine care Admission and Anticipated Discharge Date Admission Date: May 23, 2023 Subjective Follow-up for respiratory failure, etc. Resting in bed, sitting up, comfortable, not in distress Awake and alert, oriented Patient's at the bedside visiting States that she feels fine overall Denies shortness of breath no chest pain, dyspnea, palpitations, dizziness Reports sore throat No other new symptoms Review of Systems Review of Systems: all noted and negative except for above Physical Exam Physical Exam: General- oriented x 2, not in distress, speaks in sentences with no effort or accessory muscle use Mouth-mild thrush on the tongue Eyes- anicteric Neck- no JVD Lungs- clear breath sounds bilaterally, no crackles Heart- normal rate, regular rhythm; no murmurs Abdomen- normal bowel sounds, nondistended, soft, nontender Extremities- no pretibial edema, no calf tenderness Neuro- alert, oriented x 2; no gross focal neurologic deficits Skin- warm & dry Results & Data Results & Data Vital Signs (Past 12 Hours) Vital Signs Temp Pulse Pulse Resp BP Pulse Ox O2 Del Method 05/25/23 11:29 36.7 C 48 L 20 136/77 92 Nasal Cannula 05/25/23 08:00 Nasal Cannula 05/25/23 08:00 54 L 05/25/23 07:36 36.3 C L 49 L 18 119/52 L 94 Nasal Cannula 05/25/23 04:00 36.9 C 56 L 20 96/52 L 97 CPAP O2 Flow Rate 05/25/23 11:29 2 05/25/23 08:00 2 05/25/23 08:00 05/25/23 07:36 2 05/25/23 04:00 all noted and reviewed including below (3) Hypotension Hypotension type: unspecified hypotension type Qualified Code(s): I95.9 - Hypotension, unspecified (7) Anemia Anemia type: unspecified type Qualified Code(s): D64.9 - Anemia, unspecified
[2023-05-26 04:57] LABS: Basophils % (auto) 0.9 %; Eosinophils # (auto) 0.91 K/uL (0.00-0.50); Eosinophils % (auto) 8.4 %; Hematocrit (blood only) 42.5 % (37.0-47.0); Hemoglobin 13.4 g/dl (12.0-16.0); Immature Granulocytes # (auto) 0.13 K/uL (0.01-0.20); Immature Granulocytes % (auto) 1.2 %; Lymphocytes # (auto) 1.39 K/uL (1.20-3.40); Lymphocytes % (auto) 12.9 %; Mean Corpuscular Hgb Conc 31.5 g/dL (32.0-36.0); Mean Corpuscular Volume 88.9 fL (80.0-100.0); Mean Platelet Volume 11.4 fL (9.4-12.4); Monocytes # (auto) 1.08 K/uL (0.11-0.59); Neutrophils % (auto) 66.6 %; Platelet Count 217 K/uL (130-400); RDW Coefficient of Variation 16.5 % (11.5-14.5); RDW Standard Deviation 54.1 fL (36.4-46.3); Red Blood Count 4.78 M/uL (4.20-5.40); White Blood Count 10.81 K/ul (4.8-10.8)
[2023-05-26 05:28] LABS: Albumin Level 3.7 gm/dl (3.4-5.0); BUN Creatinine Ratio 5.6 (10-20); Calcium 9.5 mg/dl (8.6-10.3); Creatinine Clr Calc Pharmacy 5.6 ml/min; Est GFR (African American) 4.5 ml/min; Est GFR (Non-African American) 3.9 ml/min; Phosphorus 7.4 mg/dl (2.5-4.9); Potassium 4.5 mmol/L (3.5-5.1)
[2023-05-26] MEDS ORDERED: SODIUM CHLORIDE 0.9% 1,000 ML IV PRN (07:00)
--- NOTE | 2023-05-26 09:51 | Pharmacy Report ---
Pharmacy PK ABX Note - Date of Service May 26, 2023 - Assessment and Plan Assessment 05/25 Reviewed vancomycin level, following [facility] Pharmacokinetic dosing protocol, vancomycin 750mg x1 ordered post dialysis. 05/23 77 year old F who was ordered cefepime + vancomycin yesterday. Vancomycin was discontinued prior to any doses being given and received 1 dose of cefepime prior to it's discontinuation. Blood cultures from 05/23/23 now growing gram positive cocci which BCID2 PCR could only identify as staph species (NOT MRSA). MRSA nasal swab is positive. Despite this provider would still like to start vancomycin until repeat cultures show no growth. Mild leukocytosis. Repeat cult ures drawn today. Spoke with RN and residual urine output is very minimal (~10 cc overnight). Patient has ESRD on HD MWF with next session planned for 05/26/23. Plan Vancomycin * Vancomycin 750mg x1 post dialysis * Dose per levels for HD * Random level ordered with AM labs 05/27 prior to next HD session Pharmacy will continue to follow and will adjust dose/frequency as necessary. Thank you. Pharmacy has transitioned to AUC monitoring for vancomycin. AUC/MOOK is the preferred PK/PD target and is associated with decreased risk of nephrotoxicity compared to traditional trough targets.
--- NOTE | 2023-05-26 11:16 | Dialysis Progress Note ---
Date of Service May 26, 2023 Assessment & Plan Admission and Anticipated Discharge Date Admission Date: May 23, 2023 Subjective Assessment & Plan (1) Hemodialysis status: Plan: HD today . Aim for 2.8 kilo. BP still low and on Midodrine 10 tid. chemistries acceptable. Acid base disturbances not severe no reported avf issues. hgb 13+ . not currently requiring binders (2) Acute respiratory failure with hypercapnia: Plan: improved w/ bipap and dialysis continue supportive care Subjective seen on dialysis. BP dropped so had to lower the Uf goal. HR is also low. No cramps or n/v. AVF fine. Review of Systems Review of Systems: All systems reviewed & are unremarkable except as noted in Subjective Physical Exam Constitutional: well developed, well nourished, + acute distress, + morbidly obese, + frail appearing, cooperative and comfortable Eyes: EOM intact bilaterally ENMT: Ears: + hearing impairment; no external ear abnormality Nose: no external nose abnormality Mouth: + dry oral mucous membranes Neck: no nuchal rigidity Respiratory: normal respiratory effort Auscultation: + diminished lung sounds Cardiovascular: Rate/Rhythm: regular rate (frequent pvcs) and regular rhythm Gastrointestinal (Abdomen): Inspection/Auscultation: normal bowel sounds Percussion/Palpation: abdomen soft; abdomen nontender Musculoskeletal: Extremities: strength 5/5 throughout Skin: no rashes, warm and dry Psychiatric: Orientation: alert, oriented to person and oriented to place Results & Data Vital Signs (Past 12 Hours) Vital Signs Temp Pulse Pulse Pulse Resp BP BP 05/26/23 10:30 40 L 91/42 L 05/26/23 10:00 60 140/58 L 05/26/23 09:41 45 L 126/56 L 05/26/23 09:35 36.5 C 47 L 05/26/23 07:15 36.6 C 62 20 117/59 L 05/26/23 04:00 36.3 C L 51 L 18 105/60 05/26/23 00:00 48 L Pulse Ox O2 Del Method O2 Flow Rate 05/26/23 10:30 05/26/23 10:00 05/26/23 09:41 05/26/23 09:35 05/26/23 07:15 95 Nasal Cannula 2 05/26/23 04:00 95 Nasal Cannula 2 05/26/23 00:00
--- NOTE | 2023-05-26 13:35 | Cardiology Progress Note ---
Date of Service May 26, 2023 Assessment & Plan (1) Sinus bradycardia: Plan: 77-year-old female with a history of Parkinson's disease and end-stage renal disease for which she is on hemodialysis presented with somnolence and hypoxia. Clinically improved after emergent dialysis. Patient with previously noted history of sinus bradycardia, left bundle branch block (which appears to be intermittent at present) and frequent PVCs. Patient with 2 noted episodes of transient 2: 1 AV block on 05/23/23. Continue midodrine 10 mg PO TID for BP sport via dialysis. Avoid AV marine blockers. It is not felt that a pacemaker would improve her blood pressure to allow more aggressive fluid removal. Admission and Anticipated Discharge Date Admission Date: May 23, 2023 Subjective Pt seen in cardiology follow up while on dialysis. Sinus bradycardia in the 50s noted on telemetry with frequent PVCs. Physical Exam Constitutional: Chronically ill in appearance with out acute distress Respiratory: normal respiratory effort, lungs clear to auscultation Gastrointestinal (Abdomen): normal bowel sounds, soft, nontender, no hepatosplenomegaly Neurologic: PERRL, EOMI, accommodation nl, no face palsy, no dysarthria Results & Data Vital Signs (Past 12 Hours) Vital Signs Temp Pulse Pulse Pulse Resp BP BP 05/26/23 11:36 05/26/23 11:00 40 L 124/53 L 05/26/23 10:30 40 L 91/42 L 05/26/23 10:00 60 140/58 L 05/26/23 09:41 45 L 126/56 L 05/26/23 09:35 36.5 C 47 L 05/26/23 08:00 52 L 05/26/23 07:15 36.6 C 62 20 117/59 L 05/26/23 04:00 36.3 C L 51 L 18 105/60 Pulse Ox O2 Del Method O2 Flow Rate 05/26/23 11:36 Nasal Cannula 2 05/26/23 11:00 05/26/23 10:30 05/26/23 10:00 05/26/23 09:41 05/26/23 09:35 05/26/23 08:00 05/26/23 07:15 95 Nasal Cannula 2 05/26/23 04:00 95 Nasal Cannula 2 Laboratory Results CBC 05/26/23 Range/Units 04:46 WBC 10.81 H (4.8-10.8) K/ul RBC 4.78 (4.20-5.40) M/uL Hgb 13.4 (12.0-16.0) g/dl Hct 42.5 (37.0-47.0) % Plt Count 217 (130-400) K/uL Neut # (Auto) 7.20 H (1.40-6.50) K/uL Lymph # (Auto) 1.39 (1.20-3.40) K/uL [place] # (Auto) 1.08 H (0.11-0.59) K/uL Eos # (Auto) 0.91 H (0.00-0.50) K/uL Baso # (Auto) 0.10 (0.00-0.20) K/uL Comprehensive Metabolic Panel 05/26/23 Range/Units 04:46 Sodium 136 (136-145) mmol/L Potassium 4.5 (3.5-5.1) mmol/L Chloride 99 (98-107) mmol/L Carbon Dioxide 24 (21-32) mmol/L BUN 50 H (6-23) mg/dl Creatinine 8.94 H* (0.6-1.2) mg/dl Glucose 92 (70-99(Fasting)) mg/dl Calcium 9.5 (8.6-10.3) mg/dl Albumin 3.7 (3.4-5.0) gm/dl Intake and Output 05/25/23 05/26/23 05/26/23 22:59 06:59 14:59 Output Total Balance - - Output: Urine Amount (Catheter) Kirby/Indwelling # Bowel Movements 1 / 2 Other: # Bowel Movement Diapers 1 Weight 97.7 kg 97.7 kg Weight Measurement Method Built in Bedscale Built in Bedscale Patient Weight 05/27/23 06:59 Weight 97.7 kg
[2023-05-26] MEDS: VANCOMYCIN HCL 750 MG in SODIUM CHLORIDE 0.9% 250 ML IV ONE (13:56)
--- NOTE | 2023-05-26 19:11 | Hospitalist Progress Note ---
Date of Service May 26, 2023 Assessment & Plan (1) Acute respiratory failure with hypercapnia: (2) Metabolic encephalopathy: (3) Hypotension: Plan: Acute on chronic HFpEF. ?Possible pneumonia. ?Underlying obesity hypoventilation syndrome WBC: 13, lactate: 2.0, procalcitonin: 0.6. POC ABG: pH 7.36, pCO2: 52, pO2: 105, HCO3: 30 CXR: Cardiomegaly and mild pulmonary edema. Airspace opacity in the left upper lung in right lower lung may represent atelectasis, aspiration, and/or pneumonia. CT head: No acute intracranial findings During ER course patient became hypotensive with BP 89/46 MAP 64. Was given 500 mL NSS bolus with BP up to104/41 In ER given cefepime Spoke with bake room worker Dr. Forman as well as flooring machine feeder, Dr. Tobar regarding hypotension and need for HD. Will admit to ICU for possible as needed pressors to support BP so can get HD today Continue BiPAP. Repeat ABG N.p.o. for now on BiPAP Will continue cefepime for now Admit ICU Further management per bake room worker 05/23 back to baseline mental status continue CPAP at HS on Midodrine blood culture (+) 1/ bottles, gram positive cocci repeat blood cultures pending on Vanco IV 05/24 Continue midodrine Blood culture #1: Awaiting speciation Blood culture #2: Negative so far Continue Vanco IV Check for strep via throat swab 05/25 Blood culture #1: Coag negative staph Blood culture #2: Negative Blood culture #3: Negative Group A strep throat swab: Not detected next DC IV Vanco Stable overall Continue midodrine (4) Sinus bradycardia: Plan: HR noted 40s-50s in ER Monitor on telemetry 05/23 will having episodes of sinus bradycardia in the 40s TSH normal not on B blockers will order echo, Cardio consult 05/24 Cardiology consulted Continue to monitor for now 05/25 Asymptomatic Pacemaker not recommended at this time (5) End-stage renal disease (ESRD): Plan: On HD Nephrology consult. (6) DM type 2 (diabetes mellitus, type 2): Plan: Diet controlled A1c 4.9 on 02/2023. Of note patient on HD Monitor BSG's (7) Anemia: Plan: Anemia chronic disease. Iron deficiency anemia H/H: 13.5/41. Hgb was 13.8 on 05/14/2023 and 9.6 on 04/01/2023 On iron supplement (8) Parkinson disease: Plan: Plan to continue carbidopa levodopa (9) Hypothyroidism: Plan: TSH: 2.0 Continue levothyroxine (10) RENÉ (obstructive sleep apnea): Plan: Currently on BiPAP. When able to be off BiPAP plan to resume CPAP at bedtime DVT Prophylaxis Heparin SQ Full Code as per discussion with pt's Follows with Dr Villanueva for routine care Admission and Anticipated Discharge Date Admission Date: May 23, 2023 Subjective Follow-up for ESRD, etc. Resting in bed, comfortable, sleeping but easily awakened Comfortable, not in distress Had HD earlier today States she feels fine overall no chest pain, dyspnea, palpitations, dizziness No fevers or chills, abdominal pain, nausea or vomiting No other new symptom Review of Systems Review of Systems: all noted and negative except for above Physical Exam Physical Exam: General- oriented x 3, not in distress, speaks in sentences with no effort or accessory muscle use Eyes- anicteric Neck- no JVD Lungs- clear breath sounds bilaterally, no crackles or wheeze Heart- normal rate, regular rhythm; no murmurs Abdomen- normal bowel sounds, nondistended, soft, nontender Extremities- no pretibial edema, no calf tenderness Neuro- alert, oriented x 3; no gross focal neurologic deficits Skin- warm & dry Results & Data Results & Data Vital Signs (Past 12 Hours) Vital Signs Temp Pulse Pulse Pulse Resp BP BP 05/26/23 16:00 56 L 05/26/23 16:00 36.5 C 59 L 18 121/68 05/26/23 13:31 36.6 C 48 L 99/50 L 05/26/23 13:00 40 L 88/30 L 05/26/23 12:30 45 L 101/37 L 05/26/23 12:00 45 L 103/35 L 05/26/23 11:36 05/26/23 11:30 42 L 100/66 05/26/23 11:00 40 L 124/53 L 05/26/23 10:30 40 L 91/42 L 05/26/23 10:00 60 140/58 L 05/26/23 09:41 45 L 126/56 L 05/26/23 09:35 36.5 C 47 L 05/26/23 08:00 52 L 05/26/23 07:15 36.6 C 62 20 117/59 L Pulse Ox O2 Del Method O2 Flow Rate 05/26/23 16:00 05/26/23 16:00 97 Nasal Cannula 2 05/26/23 13:31 05/26/23 13:00 05/26/23 12:30 05/26/23 12:00 05/26/23 11:36 Nasal Cannula 2 05/26/23 11:30 05/26/23 11:00 05/26/23 10:30 05/26/23 10:00 05/26/23 09:41 05/26/23 09:35 05/26/23 08:00 05/26/23 07:15 95 Nasal Cannula 2 all noted and reviewed including below (3) Hypotension Hypotension type: unspecified hypotension type Qualified Code(s): I95.9 - Hypotension, unspecified (7) Anemia Anemia type: unspecified type Qualified Code(s): D64.9 - Anemia, unspecified
[2023-05-27 09:39] LABS: Basophils # (auto) 0.14 K/uL (0.00-0.20); Basophils % (auto) 1.2 %; Eosinophils # (auto) 0.66 K/uL (0.00-0.50); Eosinophils % (auto) 5.7 %; Hematocrit (blood only) 44.4 % (37.0-47.0); Hemoglobin 14.6 g/dl (12.0-16.0); Immature Granulocytes # (auto) 0.17 K/uL (0.01-0.20); Immature Granulocytes % (auto) 1.5 %; Lymphocytes % (auto) 10.4 %; Mean Corpuscular Hemoglobin 29.4 pg (25.0-34.0); Mean Corpuscular Hgb Conc 32.9 g/dL (32.0-36.0); Mean Corpuscular Volume 89.5 fL (80.0-100.0); Mean Platelet Volume 11.7 fL (9.4-12.4); Monocytes # (auto) 1.18 K/uL (0.11-0.59); Monocytes % (auto) 10.2 %; Platelet Count 232 K/uL (130-400); RDW Coefficient of Variation 16.7 % (11.5-14.5); RDW Standard Deviation 53.7 fL (36.4-46.3); Red Blood Count 4.96 M/uL (4.20-5.40); White Blood Count 11.55 K/ul (4.8-10.8)
[2023-05-27 09:57] LABS: Albumin Level 4.1 gm/dl (3.4-5.0); BUN Creatinine Ratio 5.1 (10-20); Creatinine Clr Calc Pharmacy 7.5 ml/min; Est GFR (African American) 6.4 ml/min; Est GFR (Non-African American) 5.5 ml/min; Phosphorus 5.9 mg/dl (2.5-4.9)
--- NOTE | 2023-05-27 11:28 | Hospitalist Progress Note ---
Date of Service May 27, 2023 Assessment & Plan (1) Acute respiratory failure with hypercapnia: (2) Metabolic encephalopathy: (3) Hypotension: Plan: Acute on chronic HFpEF. ?Possible pneumonia. ?Underlying obesity hypoventilation syndrome WBC: 13, lactate: 2.0, procalcitonin: 0.6. POC ABG: pH 7.36, pCO2: 52, pO2: 105, HCO3: 30 CXR: Cardiomegaly and mild pulmonary edema. Airspace opacity in the left upper lung in right lower lung may represent atelectasis, aspiration, and/or pneumonia. CT head: No acute intracranial findings During ER course patient became hypotensive with BP 89/46 MAP 64. Was given 500 mL NSS bolus with BP up to104/41 In ER given cefepime Spoke with medical billing service Dr. Forman as well as transit mixer driver, Dr. Tobar regarding hypotension and need for HD. Will admit to ICU for possible as needed pressors to support BP so can get HD today Continue BiPAP. Repeat ABG N.p.o. for now on BiPAP Will continue cefepime for now Admit ICU Further management per medical billing service 05/23 back to baseline mental status continue CPAP at HS on Midodrine blood culture (+) 1/ bottles, gram positive cocci repeat blood cultures pending on Vanco IV 05/24 Continue midodrine Blood culture #1: Awaiting speciation Blood culture #2: Negative so far Continue Vanco IV Check for strep via throat swab 05/26 Blood culture #1: Coag negative staph Blood culture #2: Negative Blood culture #3: Negative Group A strep throat swab: Not detected next discontinued IV Vanco Stable overall Continue midodrine 10 mg 3 times daily (4) Sinus bradycardia: Plan: HR noted 40s-50s in ER Monitor on telemetry 05/23 having episodes of sinus bradycardia in the 40s TSH normal not on B blockers Cardiology consulted-Dr. Levin Asymptomatic Avoid AV marine blockers Pacemaker not recommended at this time (5) End-stage renal disease (ESRD): Plan: On HD Nephrology consult. (6) DM type 2 (diabetes mellitus, type 2): Plan: Diet controlled A1c 4.9 on 02/2023. Of note patient on HD (7) Anemia: Plan: Anemia chronic disease. Iron deficiency anemia H/H: 13.5/41. Hgb was 13.8 on 05/14/2023 and 9.6 on 04/01/2023 On iron supplement (8) Parkinson disease: Plan: Plan to continue carbidopa levodopa (9) Hypothyroidism: Plan: TSH: 2.0 Continue levothyroxine (10) RENÉ (obstructive sleep apnea): Plan: Patient needs to be encouraged to use BiPAP nightly Needs to ensure nightly BiPAP use DVT Prophylaxis Heparin SQ Full Code as per discussion with pt's Follows with Dr Villanueva for routine care Admission and Anticipated Discharge Date Admission Date: May 23, 2023 Subjective Follow-up for respiratory failure, etc. Seen resting in bed, sitting up, having cereal, watching TV, comfortable, not in distress States she feels fine overall Denies shortness of breath, cough, fevers or chills No abdominal pain, nausea vomiting neck No chest pain, palpitations, dizziness States she is ready for discharge today Review of Systems Review of Systems: all noted and negative except for above Physical Exam Physical Exam: General- oriented x 2, not in distress, speaks in sentences with no effort or accessory muscle use Eyes- anicteric Neck- no JVD Lungs- clear breath sounds bilaterally, no rales/wheezes Heart- normal rate, regular rhythm; no murmurs Abdomen- normal bowel sounds, nondistended, soft, nontender Extremities- no pretibial edema, no calf tenderness Neuro- alert, oriented x 2; no gross focal neurologic deficits Skin- warm & dry Results & Data Results & Data Vital Signs (Past 12 Hours) Vital Signs Temp Pulse Pulse Pulse Resp BP Pulse Ox 05/27/23 11:09 36.6 C 46 L 20 120/77 98 05/27/23 07:53 36.6 C 50 L 18 110/49 L 95 05/27/23 03:20 36.6 C 45 L 20 127/56 L 97 05/27/23 02:33 51 L 16 95 O2 Del Method O2 Flow Rate FiO2 05/27/23 11:09 Nasal Cannula 2 05/27/23 07:53 Nasal Cannula 2 05/27/23 03:20 CPAP 05/27/23 02:33 35 all noted and reviewed including below (3) Hypotension Hypotension type: unspecified hypotension type Qualified Code(s): I95.9 - Hypotension, unspecified (7) Anemia Anemia type: unspecified type Qualified Code(s): D64.9 - Anemia, unspecified
--- NOTE | 2023-05-27 11:37 | Discharge Summary ---
Discharge Summary Date of Service May 27, 2023 Notes For Next Care Provider Medication Changes From Visit New medication: Midodrine 10 mg p.o. 3 times daily Discontinued medication: Isosorbide mononitrate Admission HPI Per Admitting Provider Patient is 77-year-old female with PMH diet-controlled DM II, ESRD on HD, COPD, hypothyroidism, chronic anemia, Parkinson's, LBBB, RENÉ and others listed below presented to ER from [facility] for altered mental status. History obtained from ER staff, outpatient and inpatient chart review. is at bedside and states it is reported patient has not been wanting to use her CPAP at night. Reported patient was noted to be hypoxic last night and was placed on oxygen. It is reported this morning patient was more somnolent and hypoxic so EMS was called. Upon arrival to ER patient somnolent. She was placed on BiPAP and reported to have improvement of mental status and was answering questions. During ER course patient became more somnolent. Still on BiPAP. Admission Exam Per Admitting Provider General: +somnolent, obese elderly female Head: normocephalic, atraumatic Eyes: PERRL, conjunctiva non-injected, anicteric ENT: normal inspection external ears, nose, mucous membranes appear moist Neck: supple, trachea midline Lungs: no apparent respiratory distress on bipap, +rales CV: RRR, no significant pretibial edema Abd: normal BS, soft, no apparent tenderness to palpation Ext: no cyanosis, no erythema, no apparent calf tenderness Neuro: Somnolent, awakens with light touch and falls back to sleep Skin: warm, dry Principal Dx & Hospital Course #1 = Principal Diagnosis (1) Acute respiratory failure with hypercapnia: (2) Metabolic encephalopathy: (3) Hypotension: Acute on chronic HFpEF. ?Possible pneumonia. ?Underlying obesity hypoventilation syndrome WBC: 13, lactate: 2.0, procalcitonin: 0.6. POC ABG: pH 7.36, pCO2: 52, pO2: 105, HCO3: 30 CXR: Cardiomegaly and mild pulmonary edema. Airspace opacity in the left upper lung in right lower lung may represent atelectasis, aspiration, and/or pneumonia. CT head: No acute intracranial findings During ER course patient became hypotensive with BP 89/46 MAP 64. Was given 500 mL NSS bolus with BP up to104/41 In ER given cefepime Spoke with orthotic/prosthetic clinician Dr. Forman as well as screen stretcher, Dr. Tobar regarding hypotension and need for HD. Will admit to ICU for possible as needed pressors to support BP so can get HD today Continue BiPAP. Repeat ABG N.p.o. for now on BiPAP Patient admitted to the ICU Was placed on midodrine 10 mg p.o. 3 times daily, blood pressure improved, was able to proceed with hemodialysis Isosorbide mononitrate discontinued Weaned off BiPAP Patient clinically improved Vancomycin IV started for possible bacteremia as initial blood cultures growing gram-positive cocci in 05/26 Blood culture #1: Coag negative staph Blood culture #2: Negative Blood culture #3: Negative Group A strep throat swab: Not detected next discontinued IV Vanco Stable overall Afebrile On 2 L of oxygen via nasal cannula Continue midodrine 10 mg 3 times daily Stop isosorbide mononitrate Please ensure patient uses BiPAP nightly (4) Sinus bradycardia: HR noted 40s-50s in ER Monitor on telemetry 05/23 having episodes of sinus bradycardia in the 40s TSH normal not on B blockers Cardiology consulted-Dr. Levin Asymptomatic Avoid AV marine blockers Pacemaker not recommended at this time (5) End-stage renal disease (ESRD): On HD Nephrology consult. (6) DM type 2 (diabetes mellitus, type 2): Diet controlled A1c 4.9 on 02/2023. Of note patient on HD (7) Anemia: Anemia chronic disease. Iron deficiency anemia H/H: 13.5/41. Hgb was 13.8 on 05/14/2023 and 9.6 on 04/01/2023 On iron supplement (8) Parkinson disease: Plan to continue carbidopa levodopa (9) Hypothyroidism: TSH: 2.0 Continue levothyroxine (10) RENÉ (obstructive sleep apnea): Patient needs to be encouraged to use BiPAP nightly Needs to ensure nightly BiPAP use DVT Prophylaxis Heparin SQ Full Code as per discussion with pt's Follows with Dr Villanueva for routine care Discharge Exam General- oriented x 2, not in distress, speaks in sentences with no effort or accessory muscle use Eyes- anicteric Neck- no JVD Lungs- clear breath sounds bilaterally, no rales/wheezes Heart- normal rate, regular rhythm; no murmurs Abdomen- normal bowel sounds, nondistended, soft, nontender Extremities- no pretibial edema, no calf tenderness Neuro- alert, oriented x 2; no gross focal neurologic deficits Skin- warm & dry Updated Medication List Medication Instructions Recorded Confirmed Type aspirin 81 mg tablet,delayed 162 mg PO QAM 11/15/21 05/23/23 History release atorvastatin 80 mg tablet 80 mg PO QPM 11/15/21 05/23/23 History carbidopa 25 mg-levodopa 100 mg 1 tab PO TIDM 11/15/21 05/23/23 History tablet docusate sodium 100 mg capsule 100 mg PO BID 11/15/21 05/23/23 History (Colace) isosorbide mononitrate 30 mg 30 mg PO QPM 11/15/21 05/23/23 History tablet,extended release 24 hr levothyroxine 125 mcg tablet 125 mcg PO QAM 11/15/21 05/23/23 History lidocaine-prilocaine 2.5 %-2.5 % 1 applic topical DIRECTED PRN 1 11/15/21 05/23/23 History topical cream HR PRIOR TO DIALYSIS pregabalin 100 mg capsule 100 mg PO BID 11/15/21 05/23/23 History sertraline 100 mg tablet 100 mg PO DAILY 11/15/21 05/23/23 History vitamin B complex-vitamin C-folic 1 tab PO QPM 04/16/22 05/23/23 History acid 0.8 mg tablet (Nanci-Samuel) pantoprazole 20 mg tablet,delayed 20 mg PO BID 05/23/22 05/23/23 History release acetaminophen 325 mg tablet 650 mg PO Q6H PRN Pain 09/05/22 05/23/23 History (Tylenol) epinephrine 0.3 mg/0.3 mL 0.3 mg IM DIRECTED PRN Allergic 09/05/22 05/23/23 History injection, auto-injector (EpiPen) Reaction hydrocortisone 2.5 % topical cream 1 applic DE DAILY PRN Hemorrhoids 09/05/22 05/23/23 History with perineal applicator meclizine 12.5 mg tablet 12.5 mg PO TID PRN Dizziness 09/05/22 05/23/23 History melatonin 10 mg tablet 10 mg PO HS 09/05/22 05/23/23 History nystatin 100,000 unit/gram topical 1 applic EXT BID #30 grams 09/09/22 05/23/23 Rx powder (Nystop) ferric citrate 210 mg iron tablet 210 mg PO TIDM 01/21/23 05/23/23 History (Auryxia) fluticasone furoate 200 1 inh inhalation DAILY 01/21/23 05/23/23 History mcg-vilanterol 25 mcg/dose inhalation powder (Breo Ellipta) Hemorroid Supp 1 supp DE DIRECTED PRN 03/05/23 05/23/23 History Hemorrhoids cholecalciferol (vitamin D3) 125 125 mcg PO DAILY 05/23/23 05/23/23 History mcg (5,000 unit) tablet (Vitamin D3) midodrine 10 mg tablet 10 mg PO TID@0800,1200,1700 30 05/27/23 Rx days #90 tabs Hospital Stay Data Consultations 05/23/23 11:58 ED Decision to Admit Stat 05/23/23 14:26 Consult Development Associate Routine Consult Nephrology Routine 05/25/23 08:30 Consult Cardiology Routine Diagnostic Imagining Performed Laboratory Results WBC 11.55 K/ul (4.8-10.8) H 05/27/23 08:52 RBC 4.96 M/uL (4.20-5.40) 05/27/23 08:52 Hgb 14.6 g/dl (12.0-16.0) 05/27/23 08:52 POC Hgb 13.3 g/dl (12.0-16.0) 05/23/23 13:28 Hct 44.4 % (37.0-47.0) 05/27/23 08:52 POC Hct 39 % (37-47) 05/23/23 13:28 MCV 89.5 fL (80.0-100.0) 05/27/23 08:52 MCH 29.4 pg (25.0-34.0) 05/27/23 08:52 MCHC 32.9 g/dL (32.0-36.0) 05/27/23 08:52 RDW Std Deviation 53.7 fL (36.4-46.3) H 05/27/23 08:52 RDW Coeff of Bhavin 16.7 % (11.5-14.5) H 05/27/23 08:52 Plt Count 232 K/uL (130-400) 05/27/23 08:52 MPV 11.7 fL (9.4-12.4) 05/27/23 08:52 Immature Gran % (Auto) 1.5 % 05/27/23 08:52 Neut % (Auto) 71.0 % 05/27/23 08:52 Lymph % (Auto) 10.4 % 05/27/23 08:52 [place] % (Auto) 10.2 % 05/27/23 08:52 Eos % (Auto) 5.7 % 05/27/23 08:52 Baso % (Auto) 1.2 % 05/27/23 08:52 Neut # (Auto) 8.20 K/uL (1.40-6.50) H 05/27/23 08:52 Lymph # (Auto) 1.20 K/uL (1.20-3.40) 05/27/23 08:52 [place] # (Auto) 1.18 K/uL (0.11-0.59) H 05/27/23 08:52 Eos # (Auto) 0.66 K/uL (0.00-0.50) H 05/27/23 08:52 Baso # (Auto) 0.14 K/uL (0.00-0.20) 05/27/23 08:52 Immature Gran # (Auto) 0.17 K/uL (0.01-0.20) 05/27/23 08:52 PT 10.0 Seconds (9.0-12.0) 05/23/23 09:31 INR 0.9 (0.9-1.1) 05/23/23 09:31 POC pH 7.37 (7.35-7.45) 05/23/23 13:28 POC pCO2 51 mmHg (35-46) H 05/23/23 13:28 POC pO2 75 mmHg (80-95) L 05/23/23 13:28 POC HCO3 29 ben/L (19-24) H 05/23/23 13:28 POC Total CO2 31 mmol/L (24-31) 05/23/23 13:28 POC Base Excess 4.0 ben/L (-9-1.8) H 05/23/23 13:28 POC ABG O2 Sat 94.0 % (90-95) 05/23/23 13:28 POC Sodium 136 mmol/L (135-144) 05/23/23 13:28 Sodium 136 mmol/L (136-145) 05/27/23 08:52 POC Potassium 3.8 mmol/L (3.3-5.0) 05/23/23 13:28 Potassium 4.0 mmol/L (3.5-5.1) 05/27/23 08:52 Chloride 98 mmol/L (98-107) 05/27/23 08:52 Carbon Dioxide 24 mmol/L (21-32) 05/27/23 08:52 Anion Gap 14 (3-11) H 05/27/23 08:52 BUN 34 mg/dl (6-23) H 05/27/23 08:52 Creatinine 6.68 mg/dl (0.6-1.2) H* D 05/27/23 08:52 Est Cr Clr Drug Dosing 7.5 ml/min 05/27/23 08:52 Est GFR ( Amer) 6.4 ml/min 05/27/23 08:52 Est GFR (Non-Af Amer) 5.5 ml/min 05/27/23 08:52 BUN/Creatinine Ratio 5.1 (10-20) L 05/27/23 08:52 Glucose 105 mg/dl (70-99(Fasting)) H 05/27/23 08:52 POC Glucose 130 mg/dl (70-99) H 05/26/23 22:08 Lactate 2.0 mmol/L (0.4-2.0) 05/23/23 09:45 Calcium 10.0 mg/dl (8.6-10.3) 05/27/23 08:52 Phosphorus 5.9 mg/dl (2.5-4.9) H 05/27/23 08:52 Magnesium 2.2 mg/dl (1.7-2.4) 05/24/23 03:55 Total Bilirubin 0.3 mg/dl (0.2-1.0) 05/24/23 03:55 AST 21 U/L (13-39) 05/24/23 03:55 ALT 4 U/L (7-52) L 05/24/23 03:55 Alkaline Phosphatase 103 U/L (34-104) 05/24/23 03:55 Total Protein 7.9 gm/dl (6.0-8.3) 05/24/23 03:55 Albumin 4.1 gm/dl (3.4-5.0) 05/27/23 08:52 Globulin 3.9 gm/dl (2.5-4.0) 05/24/23 03:55 Albumin/Globulin Ratio 1.0 (0.9-2) 05/24/23 03:55 Lipase 15 U/L (11-82) 05/23/23 09:30 Procalcitonin 0.61 ng/ml (0-0.5) H 05/23/23 09:44 TSH 2.086 uIu/ml (0.300-4.500) 05/23/23 09:30 Urine Color Dark Yellow 05/23/23 12:15 Urine Appearance Cloudy (Clear) A 05/23/23 12:15 Urine pH 7.5 (4.5-7.5) 05/23/23 12:15 Ur Specific [place] 1.013 (1.000-1.030) 05/23/23 12:15 Urine Protein 2+ (Negative) H 05/23/23 12:15 Urine Glucose (UA) Negative (Negative) 05/23/23 12:15 Urine Ketones Negative (Negative) 05/23/23 12:15 Urine Blood 3+ (Negative) H 05/23/23 12:15 Urine Nitrite Negative (Negative) 05/23/23 12:15 Urine Bilirubin Negative (Negative) 05/23/23 12:15 Urine Urobilinogen Negative (Negative) 05/23/23 12:15 Ur Leukocyte Esterase Trace (Negative) H 05/23/23 12:15 Urine WBC (Auto) 1-5 /hpf (0-5) 05/23/23 12:15 Urine RBC (Auto) >30 /hpf (0-4) H 05/23/23 12:15 U Hyaline Cast (Auto) 1-5 /lpf (0-5) 05/23/23 12:15 U Epithel Cells (Auto) >30 /lpf (0-5) H 05/23/23 12:15 Urine Bacteria (Auto) Negative (Negative) 05/23/23 12:15 Nasal Screen MRSA (PCR) Positive (Negative) A 05/23/23 15:00 Random Vancomycin 19.7 mcg/ml (10-20) 05/26/23 04:46 Adenovirus (PCR) Not Detected (NotDetected) 05/23/23 09:50 B. pertussis DNA (PCR) Not Detected (NotDetected) 05/23/23 09:50 B.parapertussis DNA PCR Not Detected (NotDetected) 05/23/23 09:50 C. pneumoniae DNA (PCR) Not Detected (NotDetected) 05/23/23 09:50 Coronavirus OC43 (PCR) Not Detected (NotDetected) 05/23/23 09:50 Coronavirus HKU1 (PCR) Not Detected (NotDetected) 05/23/23 09:50 Coronavirus 229E (PCR) Not Detected (NotDetected) 05/23/23 09:50 SARS-CoV-2 (PCR) Not Detected (NotDetected) 05/23/23 09:50 Coronavirus NL63 (PCR) Not Detected (NotDetected) 05/23/23 09:50 Human Metapneumovir PCR Not Detected (NotDetected) 05/23/23 09:50 Influenza Type A (PCR) Not Detected (NotDetected) 05/23/23 09:50 Influenza Type B (PCR) Not Detected (NotDetected) 05/23/23 09:50 M. pneumoniae (PCR) Not Detected (NotDetected) 05/23/23 09:50 Parainfluenza 1 (PCR) Not Detected (NotDetected) 05/23/23 09:50 Parainfluenza 2 (PCR) Not Detected (NotDetected) 05/23/23 09:50 Parainfluenza 3 (PCR) Not Detected (NotDetected) 05/23/23 09:50 Parainfluenza 4 (PCR) Not Detected (NotDetected) 05/23/23 09:50 RSV (PCR) Not Detected (NotDetected) 05/23/23 09:50 Entero/Rhino (PCR) Not Detected (NotDetected) 05/23/23 09:50 Staphylococcus sp PCR DETECTED (NotDetected) A 05/23/23 09:45 Group A Strep (PCR) NOT DETECTED (NotDetected) 05/25/23 Unknown Bld Cult ID Panel PCR See PCR Comment (NotDetected) 05/23/23 09:45 Impressions Chest X-Ray 05/23/23 09:31 XR chest 1V portable CLINICAL HISTORY: sob TECHNIQUE: Single frontal radiograph of the chest was obtained. Comparison: Comparison is made to chest radiograph 03/05/2023 FINDINGS: No lines and tubes are seen. Cardiomegaly is noted. Prominence and cephalization of the vasculature is seen. Airspace opacities in the left upper lung and right lower lung. No evidence of pleural effusion or pneumothorax. IMPRESSION: 1. Cardiomegaly and mild pulmonary edema. 2. Airspace opacity in the left upper lung in right lower lung may represent atelectasis, aspiration, and/or pneumonia. ACT 112: Negative or not required by law. Electronically signed by: Gato Nix M.D. 05/23/2023 10:[address] 05/23/23 10:13 CT head/brain wo con CLINICAL HISTORY: 77 years-old Female with ams. Acutely altered mental status TECHNIQUE: Multiple axial CT images of the head were obtained without contrast. A dose lowering technique was utilized adhering to the principles of ALARA. CT DOSE: 625.8 mGy.cm COMPARISON: 06/12/2021. FINDINGS: No acute intracranial hemorrhage, midline shift, intracranial mass, hydrocephalus, territorial ischemia or abnormal extra-axial collection. Involutional changes with chronic microvascular ischemic disease. Cerebral vascular calcifications. The calvarium is intact. Severe mucoperiosteal thickening of the right maxillary and sphenoid sinuses compatible with chronic sinus disease. Trace mastoid effusions. Unremarkable soft tissues and orbits. IMPRESSION: 1. No acute intracranial abnormality or calvarial fracture. 2. Chronic paranasal sinus disease. ACT 112: Negative or not required by law. The above report was generated using voice recognition software. It may contain grammatical, syntax or spelling errors. Electronically signed by: Benito Stiles M.D. 05/23/2023 11:36 AM Pending Results Patient Have Any Pending Studies at Discharge: No Discharge Instructions Given to Patient (Per Discharging Provider) Please refer to accompanying hospital discharge summary for further details Total Time Total Time Spent Total Time Spent (In Minutes): >30 minutes
--- NOTE | 2023-05-27 15:06 | Cardiology Progress Note ---
Date of Service May 27, 2023 Assessment & Plan (1) Sinus bradycardia: Plan: 77-year-old female with a history of Parkinson's disease and end-stage renal disease for which she is on hemodialysis presented with somnolence and hypoxia. Clinically improved after emergent dialysis. Patient with previously noted history of sinus bradycardia, left bundle branch block (which appears to be intermittent at present) and frequent PVCs. Patient with 2 noted episodes of transient 2: 1 AV block on 05/23/23. Continue midodrine 10 mg PO TID for BP sport via dialysis. Avoid AV marine blockers. It is not felt that a pacemaker would improve her blood pressure to allow more aggressive fluid removal. Admission and Anticipated Discharge Date Admission Date: May 23, 2023 Subjective Pt seen in cardiology follow up. Denies symptoms. Telemetry reveals sinus bradycardia in the 50s with PVCs. Physical Exam Physical Exam: Hard of hearing Respiratory: normal respiratory effort, lungs clear to auscultation Cardiovascular: RRR, no murmur, no edema Gastrointestinal (Abdomen): normal bowel sounds, soft, nontender, no hepatosplenomegaly Neurologic: PERRL, EOMI, accommodation nl, no face palsy, no dysarthria Results & Data Vital Signs (Past 12 Hours) Vital Signs Temp Pulse Pulse Pulse Resp BP Pulse Ox 05/27/23 13:38 36.6 C 46 L 50 L 20 120/77 98 05/27/23 11:09 36.6 C 46 L 20 120/77 98 05/27/23 08:00 56 L 05/27/23 07:53 36.6 C 50 L 18 110/49 L 95 05/27/23 03:20 36.6 C 45 L 20 127/56 L 97 O2 Del Method O2 Flow Rate 05/27/23 13:38 05/27/23 11:09 Nasal Cannula 2 05/27/23 08:00 05/27/23 07:53 Nasal Cannula 2 05/27/23 03:20 CPAP
[2023-05-28] MEDS ORDERED: SODIUM CHLORIDE 0.9% 1,000 ML IV PRN (07:00)
== END 2023-05-27 14:33 | DRG 189 ==
LOC: ED 09:01 → 1E 13:10 → 4W 05-24 18:51

== ENCOUNTER 2023-10-27 11:50 | Inpatient (IN) ==
--- NOTE | 2023-10-27 12:02 | Emergency Department Note ---
Impression & Plan Hypotension ADMISSION ED Provider Note HPI: History obtained from patient. The patient is a 78-year-old female with history of end-stage renal disease, currently on dialysis, who presents the emergency department with a chief complaint of hypotension and lightheadedness at dialysis today. Per EMS report the patient was noted to be hypotensive in the 70s after a full session of dialysis. She seemed somewhat lightheaded and lethargic and therefore EMS was contacted. Prior to arrival patient was noted to have some bradycardia in the 30s and was given atropine. On arrival here to the ER the patient is alert, she is with stable blood pressure and heart rate is noted to be in the 70s. Patient is saturating well on her baseline 3 L nasal cannula oxygen on arrival. Patient denies any focal complaint of pain. She states she does feel somewhat dizzy and weak. Per EMS report the patient was given 800 cc of normal saline at her dialysis center prior to transport. ROS: - Per HPI Differential Diagnosis: Hypotension secondary to fluid shifts associated with dialysis, symptomatic bradycardia, heart block, sick sinus syndrome, stroke, acute coronary syndrome, pulmonary edema, amongst other potential pathologies. *Outpatient medications and allergy history reviewed. 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 Patient arrives with stable blood pressure. Lab work shows a nonspecific mild leukocytosis at 11.73, hemoglobin is normal, platelet count is normal, CMP shows hypokalemia at 3.1, creatinine is 4.10, high-sensitivity troponin level is mildly elevated but down trended from previous at 38.3. Chest x-ray per my interpretation shows some mild congestion without any evidence of overt fluid overload. Patient did tolerate a full session of dialysis today until the very end when she apparently became hypotensive. She does have a history of similar episode. She has not had bradycardia here in the ED since her arrival but reportedly did have some symptomatic bradycardia in the field in the 30s and was given atropine. On my reassessment the patient is alert but she states she feels unwell and generally very weak. Given this, I did discuss her presentation with the on-call hospitalist service for [facility], case was discussed with Mignon Iyer PA-C and the patient was admitted to the hospitalist service for further management. Patient and her at the bedside were in agreement to this plan. Patient was admitted to the hospitalist service of Dr. Mcclendon in stable condition. Consultants/Discussions held with other healthcare providers: -Hospitalist, Dr. Mcclendon Disposition discussion held by myself with: -Patent Diagnosis: 1. Symptomatic bradycardia reported in the field, acute 2. Hypotension after dialysis, acute 3. Elevated high-sensitivity troponin level, acute 4. Leukocytosis, acute, nonspecific Disposition: Admission Ortega Fuentes DO Emergency Medicine Past Med/Surg History Problem List (Updated 10/27/23 @ 17:42 by Ortega Fuentes DO) Hypotension (Acute) Confusion Hypothyroidism Sinus bradycardia Hypotension Hemodialysis status Anemia (Acute) LBBB (left bundle branch block) (Acute) DM type 2 (diabetes mellitus, type 2) Elevated troponin (Acute) Hypertension Toxic metabolic encephalopathy Dialysis disequilibrium syndrome Acute on chronic respiratory failure with hypoxemia Leukocytosis LBBB (left bundle branch block) (Acute) ESRD (end stage renal disease) on dialysis (Acute) RENÉ (obstructive sleep apnea) Anemia of chronic disease End-stage renal disease (ESRD) (Acute) Generalized weakness Parkinson disease Medical History Thickened endometrium Acute ischemic stroke NSTEMI (non-ST elevated myocardial infarction) Elevated troponin I level AV fistula R arm Limb alert care status R arm History of recent hospitalization d/c 09/09/22>per medical record, pt sent to ER at [facility] following dialysis for reddened sores on her buttocks. Admitting dx was enterococcus UTI, decubitus ulcer and sacral cellulitis. Difficult intravenous access Black stools Mobility impaired pt non compliant with hx pt treatments / PT IS IN WHEELCHAIR/TOTAL ASSIST Poor short term memory [place] (hard of hearing) COPD (chronic obstructive pulmonary disease) no medications for currently History of stroke 2019- pts spouse poor historian pt denies hx stroke History of anesthesia reaction "hard time waking up" Hx: recurrent pneumonia History of COVID-19 ? early 2021- mild congestion, no hospitalization, no current issues Non-ST elevation VT (NSTEMI) pt spouse not sure/ mild ? remembers something mentioned in hx/ ? details ESRD (end stage renal disease) on dialysis tues, thur & sat ([facility]) Aspiration pneumonia HX Morbid obesity Rheumatoid arthritis ? current status/no meds for Chronic diastolic heart failure EF 50% on 01/2020 echo RACHEL (iron deficiency anemia) Subdural hematoma hx fall 2019 - tx to [facility]/no surgical intervention RENÉ on CPAP Depression Meniere's disease Generalized anxiety disorder Dyslipidemia Restless leg syndrome Diabetes mellitus, type II hx / NO MEDS HTN (hypertension) Surgical History Hx of arteriovenostomy for renal dialysis right arm History of tubal ligation History of carpal tunnel surgery B/L History of orthopedic surgery " bilat heel surgery" H/O sinus surgery Hx of total knee arthroplasty B/L Family History Other AAA (abdominal aortic aneurysm) Diabetes Family history non-contributory Hypertension Myotonic dystrophy Social History Smoking Status: Unknown if ever smoked Tobacco Type: Cigarettes Cigarettes Per Day: 0.25ppd; Second Hand Exposure: No; Do You Dip or Chew Tobacco: No; Hx Alcohol Use: No Hx Substance Use: No Preferred Language: [place] Communication Ability: Effective Communication Ability Comment: pt sometimes has difficulty understanding things, 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 Beliefs That Will Affect Care: None marital status: Current Living Situation: [facility] Current Living Situation Comment: Lives at home with , bed bound Feels Safe at Home: Yes Assistive Devices: CPAP Allergies Allergies Allergy/AdvReac Type Severity Reaction Status Date / Time No Known Allergies Allergy Verified 03/05/23 12:17 Home Meds Home Medications Medication Instructions Recorded Confirmed aspirin 81 mg tablet,delayed 162 mg PO QAM 11/15/21 10/27/23 release atorvastatin 80 mg tablet 80 mg PO QPM 11/15/21 10/27/23 carbidopa 25 mg-levodopa 100 mg 1 tab PO TIDM 11/15/21 10/27/23 tablet docusate sodium 100 mg capsule 100 mg PO DAILY 11/15/21 10/27/23 (Colace) levothyroxine 125 mcg tablet 125 mcg PO QAM 11/15/21 10/27/23 pregabalin 100 mg capsule 100 mg PO BID 11/15/21 10/27/23 sertraline 100 mg tablet 100 mg PO DAILY 11/15/21 10/27/23 pantoprazole 20 mg tablet,delayed 20 mg PO BID 05/23/22 10/27/23 release epinephrine 0.3 mg/0.3 mL 0.3 mg IM DIRECTED PRN Allergic 09/05/22 10/27/23 injection, auto-injector (EpiPen) Reaction melatonin 10 mg tablet 10 mg PO HS 09/05/22 10/27/23 ferric citrate 210 mg iron tablet 420 mg PO TIDM 01/21/23 10/27/23 (Auryxia) fluticasone furoate 200 1 inh inhalation BID 01/21/23 10/27/23 mcg-vilanterol 25 mcg/dose inhalation powder (Breo Ellipta) cholecalciferol (vitamin D3) 25 25 mcg PO DAILY 10/27/23 10/27/23 mcg (1,000 unit) capsule midodrine 5 mg tablet 5 mg PO TID 10/27/23 10/27/23 vitamin B complex-vitamin C-folic 1 tab PO DAILY 10/27/23 10/27/23 acid 0.8 mg tablet (Nanci-Samuel) Results & Data (ED) Vital Signs Vital Signs - 24 hr 10/27/23 11:41 10/27/23 11:41 10/27/23 11:41 Temperature 36.4 C L Temperature Source Oral Pulse Rate 72 Pulse Rate from SpO2 Sensor Respiratory Rate 16 Respiratory Effort / Characteristics Non-Labored Spontaneous Non-Labored Spontaneous Respiratory Depth Normal Normal Respiratory Pattern Regular Blood Pressure 153/70 H Blood Pressure Mean 97 Pulse Oximetry 97 97 Oxygen Delivery Method Nasal Cannula Nasal Cannula Oxygen Flow Rate 3 0 Sepsis Recent Fever Within 48 Hours No Sepsis New/Unexplained Change in Mental Status N/A Sepsis Action Taken by Nursing No Action Required 10/27/23 11:57 10/27/23 12:06 10/27/23 12:06 Temperature Temperature Source Pulse Rate 73 Pulse Rate from SpO2 Sensor 72 Respiratory Rate 19 Respiratory Effort / Characteristics Respiratory Depth Respiratory Pattern Blood Pressure 153/70 H Blood Pressure Mean 76 Pulse Oximetry 97 98 Oxygen Delivery Method Nasal Cannula Oxygen Flow Rate 3 Sepsis Recent Fever Within 48 Hours Sepsis New/Unexplained Change in Mental Status Sepsis Action Taken by Nursing 10/27/23 12:09 10/27/23 12:10 10/27/23 12:10 Temperature Temperature Source Pulse Rate 74 Pulse Rate from SpO2 Sensor Respiratory Rate Respiratory Effort / Characteristics Respiratory Depth Respiratory Pattern Blood Pressure 152/84 H 152/84 H Blood Pressure Mean 123 123 Pulse Oximetry Oxygen Delivery Method Oxygen Flow Rate Sepsis Recent Fever Within 48 Hours Sepsis New/Unexplained Change in Mental Status Sepsis Action Taken by Nursing 10/27/23 12:10 10/27/23 12:33 10/27/23 12:36 Temperature Temperature Source Pulse Rate 73 Pulse Rate from SpO2 Sensor 70 Respiratory Rate 15 Respiratory Effort / Characteristics Respiratory Depth Respiratory Pattern Blood Pressure 152/84 H 139/84 Blood Pressure Mean 123 113 Pulse Oximetry 99 Oxygen Delivery Method Nasal Cannula Oxygen Flow Rate 3 Sepsis Recent Fever Within 48 Hours Sepsis New/Unexplained Change in Mental Status Sepsis Action Taken by Nursing 10/27/23 12:45 10/27/23 12:48 10/27/23 12:52 Temperature Temperature Source Pulse Rate 68 73 Pulse Rate from SpO2 Sensor 53 L 48 L Respiratory Rate 18 23 Respiratory Effort / Characteristics Respiratory Depth Respiratory Pattern Blood Pressure 147/68 H Blood Pressure Mean 113 Pulse Oximetry 98 99 Oxygen Delivery Method Oxygen Flow Rate Sepsis Recent Fever Within 48 Hours Sepsis New/Unexplained Change in Mental Status Sepsis Action Taken by Nursing 10/27/23 12:52 10/27/23 13:00 10/27/23 13:01 Temperature Temperature Source Pulse Rate 65 Pulse Rate from SpO2 Sensor 44 L Respiratory Rate 15 Respiratory Effort / Characteristics Respiratory Depth Respiratory Pattern Blood Pressure 147/68 H 162/62 H Blood Pressure Mean 113 85 Pulse Oximetry 98 Oxygen Delivery Method Oxygen Flow Rate Sepsis Recent Fever Within 48 Hours Sepsis New/Unexplained Change in Mental Status Sepsis Action Taken by Nursing 10/27/23 13:01 10/27/23 13:01 10/27/23 13:12 Temperature Temperature Source Pulse Rate 79 Pulse Rate from SpO2 Sensor Respiratory Rate 14 Respiratory Effort / Characteristics Respiratory Depth Respiratory Pattern Blood Pressure 162/62 H 162/62 H Blood Pressure Mean 85 85 Pulse Oximetry Oxygen Delivery Method Oxygen Flow Rate Sepsis Recent Fever Within 48 Hours Sepsis New/Unexplained Change in Mental Status Sepsis Action Taken by Nursing 10/27/23 13:17 10/27/23 13:17 10/27/23 13:39 Temperature Temperature Source Pulse Rate 66 Pulse Rate from SpO2 Sensor Respiratory Rate 16 Respiratory Effort / Characteristics Respiratory Depth Respiratory Pattern Blood Pressure 129/59 L 129/59 L Blood Pressure Mean 61 61 Pulse Oximetry 98 Oxygen Delivery Method Nasal Cannula Oxygen Flow Rate 3 Sepsis Recent Fever Within 48 Hours Sepsis New/Unexplained Change in Mental Status Sepsis Action Taken by Nursing Laboratory Data 10/27/23 12:05 10/27/23 12:05 Lab Results 10/27/23 10/27/23 10/27/23 Range/Units 12:05 12:14 13:00 WBC 11.73 H (4.8-10.8) K/ul RBC 3.70 L (4.20-5.40) M/uL Hgb 12.2 (12.0-16.0) g/dl POC Hgb 12.9 (12.0-16.0) g/dl Hct 35.9 L (37.0-47.0) % POC Hct 38 (37-47) % MCV 97.0 (80.0-100.0) fL MCH 33.0 (25.0-34.0) pg MCHC 34.0 (32.0-36.0) g/dL RDW Std Deviation 51.0 H (36.4-46.3) fL RDW Coeff of Bhavin 14.4 (11.5-14.5) % Plt Count 206 (130-400) K/uL MPV 10.6 (9.4-12.4) fL Immature Gran % (Auto) 2.0 % Neut % (Auto) 77.2 % Lymph % (Auto) 7.2 % [place] % (Auto) 7.7 % Eos % (Auto) 4.9 % Baso % (Auto) 1.0 % Neut # (Auto) 9.06 H (1.40-6.50) K/uL Lymph # (Auto) 0.84 L (1.20-3.40) K/uL [place] # (Auto) 0.90 H (0.11-0.59) K/uL Eos # (Auto) 0.58 H (0.00-0.50) K/uL Baso # (Auto) 0.12 (0.00-0.20) K/uL Immature Gran # (Auto) 0.23 H (0.01-0.20) K/uL PT Cancelled 9.8 INR Cancelled 0.9 POC Sodium 136 (135-144) mmol/L Sodium 137 (136-145) mmol/L POC Potassium 3.1 L (3.3-5.0) mmol/L Potassium 3.1 L (3.5-5.1) mmol/L POC Chloride 95 L (101-112) mmol/L Chloride 92 L (98-107) mmol/L Carbon Dioxide 31 (21-32) mmol/L POC Total CO2 31 (24-31) mmol/L Anion Gap 14 H (3-11) POC Anion Gap 15.0 L (16-25) mmol/L POC BUN 31 H (7-18) mg/dl BUN 30 H (6-23) mg/dl Creatinine 4.10 H (0.6-1.2) mg/dl POC Creatinine 4.6 H* (0.6-1.3) mg/dl Est Cr Clr Drug Dosing 13.0 ml/min Est GFR ( Amer) 11.4 ml/min Est GFR (Non-Af Amer) 9.9 ml/min BUN/Creatinine Ratio 7.3 L (10-20) Glucose 125 H (70-99(Fasting)) mg/dl POC Glucose (other) 127 H (70-99) mg/dl Calcium 9.5 (8.6-10.3) mg/dl POC Ioniz Calcium Oh 1.10 L (1.12-1.32) mmol/l Total Bilirubin 0.3 (0.2-1.0) mg/dl AST 22 (13-39) U/L ALT 8 (7-52) U/L Alkaline Phosphatase 95 (34-104) U/L Troponin I High Sens 38.3 H (0-14) pg/ml Total Protein 8.2 (6.0-8.3) gm/dl Albumin 4.4 (3.4-5.0) gm/dl Globulin 3.8 (2.5-4.0) gm/dl Albumin/Globulin Ratio 1.2 (0.9-2) Lipase 48 (11-82) U/L Urine Color Urine Appearance (Clear) Urine pH (4.5-7.5) Ur Specific Willis (1.000-1.030) Urine Protein (Negative) Urine Glucose (UA) (Negative) Urine Ketones (Negative) Urine Blood (Negative) Urine Nitrite (Negative) Urine Bilirubin (Negative) Urine Urobilinogen (Negative) Ur Leukocyte Esterase (Negative) Urine RBC (0-2) /hpf Urine WBC (0-5) /hpf Ur Epithelial Cells (0-2) /hpf Ur Renal Epithelial Cell (None Presnt) /lpf Urine Bacteria (None Seen) 10/27/23 Range/Units 13:20 WBC (4.8-10.8) K/ul RBC (4.20-5.40) M/uL Hgb (12.0-16.0) g/dl POC Hgb (12.0-16.0) g/dl Hct (37.0-47.0) % POC Hct (37-47) % MCV (80.0-100.0) fL MCH (25.0-34.0) pg MCHC (32.0-36.0) g/dL RDW Std Deviation (36.4-46.3) fL RDW Coeff of Bhavin (11.5-14.5) % Plt Count (130-400) K/uL MPV (9.4-12.4) fL Immature Gran % (Auto) % Neut % (Auto) % Lymph % (Auto) % [place] % (Auto) % Eos % (Auto) % Baso % (Auto) % Neut # (Auto) (1.40-6.50) K/uL Lymph # (Auto) (1.20-3.40) K/uL [place] # (Auto) (0.11-0.59) K/uL Eos # (Auto) (0.00-0.50) K/uL Baso # (Auto) (0.00-0.20) K/uL Immature Gran # (Auto) (0.01-0.20) K/uL PT INR POC Sodium (135-144) mmol/L Sodium (136-145) mmol/L POC Potassium (3.3-5.0) mmol/L Potassium (3.5-5.1) mmol/L POC Chloride (101-112) mmol/L Chloride (98-107) mmol/L Carbon Dioxide (21-32) mmol/L POC Total CO2 (24-31) mmol/L Anion Gap (3-11) POC Anion Gap (16-25) mmol/L POC BUN (7-18) mg/dl BUN (6-23) mg/dl Creatinine (0.6-1.2) mg/dl POC Creatinine (0.6-1.3) mg/dl Est Cr Clr Drug Dosing ml/min Est GFR ( Amer) ml/min Est GFR (Non-Af Amer) ml/min BUN/Creatinine Ratio (10-20) Glucose (70-99(Fasting)) mg/dl POC Glucose (other) (70-99) mg/dl Calcium (8.6-10.3) mg/dl POC Ioniz Calcium Oh (1.12-1.32) mmol/l Total Bilirubin (0.2-1.0) mg/dl AST (13-39) U/L ALT (7-52) U/L Alkaline Phosphatase (34-104) U/L Troponin I High Sens (0-14) pg/ml Total Protein (6.0-8.3) gm/dl Albumin (3.4-5.0) gm/dl Globulin (2.5-4.0) gm/dl Albumin/Globulin Ratio (0.9-2) Lipase (11-82) U/L Urine Color [place] Urine Appearance Cloudy A (Clear) Urine pH 8.5 H (4.5-7.5) Ur Specific [place] 1.020 (1.000-1.030) Urine Protein 3+ H (Negative) Urine Glucose (UA) Negative (Negative) Urine Ketones Negative (Negative) Urine Blood 3+ H (Negative) Urine Nitrite Negative (Negative) Urine Bilirubin 1+ H (Negative) Urine Urobilinogen Negative (Negative) Ur Leukocyte Esterase Trace H (Negative) Urine RBC >20 H (0-2) /hpf Urine WBC 21-50 H (0-5) /hpf Ur Epithelial Cells >20 H (0-2) /hpf Ur Renal Epithelial Cell Present A (None Presnt) /lpf Urine Bacteria 1+ H (None Seen) Administered Medications Carbidopa/Levodopa (Carbidopa/Levodopa 25/100mg Tab) 1 tab PO TIDM [place] Stop: 11/26/23 16:59 Last Admin: 10/27/23 16:55 Dose: 1 tab Documented By: GISELL Midodrine (Midodrine Hcl 2.5 Mg Tab) 5 mg PO TID@0800,1200,1700 [facility] Stop: 11/26/23 16:59 Last Admin: 10/27/23 16:55 Dose: 5 mg Documented By: GISELL Miscellaneous (Ferric Citrate [Auryxia] 210 Mg Iron Tablet) ~ Order Awaiting Action) 1 each N/A QS [place] Stop: 11/26/23 15:59 Last Admin: 10/27/23 16:44 Dose: Not Given Documented By: GISELL Imaging Data Radiologist's Impression: Chest X-Ray 10/27/23 11:58 XR chest 1V portable CLINICAL HISTORY: dizzy TECHNIQUE: Single frontal radiograph of the chest was obtained. Comparison: Comparison is made to chest radiograph 05/23/2023 FINDINGS: No lines and tubes are seen. Cardiomegaly is noted. The aortic arch is calcified. Prominence and cephalization of the vasculature is seen. No evidence of pleural effusion or pneumothorax. IMPRESSION: Cardiomegaly and mild pulmonary edema. ACT 112: Negative or not required by law. Electronically signed by: Gato Nix M.D. 10/27/2023 12:18 PM Discharge Plan Visit Data Chief Complaint: Cardiac Assessment Stated Complaint: CARDIAC ASSESSMENT ED Provider: Ortega Fuentes Discharge Problem: Hypotension Patient Disposition: Admitted As Inpatient Discharge Instructions Interventions: ED Discharge Assessment Last Done: 10/27/23 15:23 Discharge Problem: Hypotension Qualifiers: Hypotension type: unspecified hypotension type Qualified Code(s): I95.9 - Hypotension, unspecified
--- NOTE | 2023-10-27 12:19 | XRay Report ---
XR chest 1V portable CLINICAL HISTORY: dizzy TECHNIQUE: Single frontal radiograph of the chest was obtained. Comparison: Comparison is made to chest radiograph 05/23/2023 FINDINGS: No lines and tubes are seen. Cardiomegaly is noted. The aortic arch is calcified. Prominence and ceph alization of the vasculature is seen. No evidence of pleural effusion or pneumothorax. IMPRESSION: Cardiomegaly and mild pulmonary edema. ACT 112: Negative or not required by law. Electronically signed by: Gato Nix M.D. 10/27/2023 12:18 PM
[2023-10-27 12:26] LABS: iSTAT Creatinine 4.6 mg/dl (0.6-1.3); iSTAT Hemoglobin 12.9 g/dl (12.0-16.0); iSTAT Ionized Calcium 1.1 mmol/l (1.12-1.32); iSTAT Potassium 3.1 mmol/L (3.3-5.0)
[2023-10-27 12:29] LABS: Basophils # (auto) 0.12 K/uL (0.00-0.20); Eosinophils # (auto) 0.58 K/uL (0.00-0.50); Eosinophils % (auto) 4.9 %; Hematocrit (blood only) 35.9 % (37.0-47.0); Hemoglobin 12.2 g/dl (12.0-16.0); Immature Granulocytes # (auto) 0.23 K/uL (0.01-0.20); Lymphocytes # (auto) 0.84 K/uL (1.20-3.40); Lymphocytes % (auto) 7.2 %; Mean Platelet Volume 10.6 fL (9.4-12.4); Monocytes % (auto) 7.7 %; Neutrophils # (auto) 9.06 K/uL (1.40-6.50); Neutrophils % (auto) 77.2 %; Platelet Count 206 K/uL (130-400); RDW Coefficient of Variation 14.4 % (11.5-14.5); White Blood Count 11.73 K/ul (4.8-10.8)
[2023-10-27 12:44] LABS: Albumin Globulin Ratio 1.2 (0.9-2); Albumin Level 4.4 gm/dl (3.4-5.0); BUN Creatinine Ratio 7.3 (10-20); Bilirubin,Total 0.3 mg/dl (0.2-1.0); Calcium 9.5 mg/dl (8.6-10.3); Est GFR (African American) 11.4 ml/min; Est GFR (Non-African American) 9.9 ml/min; Globulin 3.8 gm/dl (2.5-4.0); Potassium 3.1 mmol/L (3.5-5.1); Total Protein 8.2 gm/dl (6.0-8.3)
[2023-10-27 12:50] LABS: Troponin I High Sensitivity 38.3 pg/ml (0-14)
--- NOTE | 2023-10-27 13:19 | History & Physical Report ---
Date of Service October 27, 2023 Assessment & Plan (1) Sinus bradycardia: Plan: This is a 78 y/o female with ESRD on HD, COPD, on 3L O2 chronically, hypothyroidism, Parkinson disease, diet-controlled DM2, RENÉ, chronic anemia, LBBB, and other history as outlined below who presented to the ED today from dialysis with confusion and hypotension. BP somewhat improved with IVF but en route pt noted to have bradycardic into the 30s so given atropine 0.5 mg with improvement in rate. Mental status now back to baseline. Pt does have a history of LBBB, frequent PVCs, and episodic bradycardia and was seen by cardiology but it was thought that pacemaker would not improve her symptoms at that time. Recent unresponsive episode at [facility] noted in September. - Admit to PCU - monitor for additional episodes of bradycardia - Consult cardiology for additional recommendations - currently rate is improved in the 60s and 70s - EKG in the AM (2) Hypotension: Plan: Started on midodrine during last admission Will continue for now (3) Confusion: Plan: Suspect multi-factorial due to episode of hypotension, possibly due to bradycardia down to the 30s (responded to atropine) Now back to baseline mental status Infectious w/u pending - blood and urine cultures collected Holding empiric antibiotics for now - afebrile, no localizing signs of infection (4) ESRD (end stage renal disease) on dialysis: Plan: Chronic, on HD 3x/week Consult nephrology for assistance with dialysis (5) Elevated troponin: Plan: Likely due to underlying renal insufficiency Will trend for stability (6) Parkinson disease: Plan: Chronic, stable Continue Sinemet (7) RENÉ (obstructive sleep apnea): Plan: Chronic, stable HS CPAP ordered (8) Hypothyroidism: Plan: Chronic, check TSH Continue levothyroxine Plan Pt seen and reviewed with collaborating physician, Dr. Mcclendon. Plan of care discussed and as outlined above. Code status: Full code DVT Prophylaxis: SubQ heparin Admit to PCU Jesica Iyer PA-C History of Present Illness Chief Complaint: episode of low blood pressure and confusion at dialysis Primary Care Provider: Nae Rodriges PA-C This is a 78 y/o female with ESRD on HD, COPD, on 3L O2 chronically, h ypothyroidism, Parkinson disease, diet-controlled DM2, RENÉ, chronic anemia, LBBB, and other history as outlined below who presented to the ED today from dialysis with confusion and hypotension. History from the patient is limited as she does not recall the events of today so her outpatient notes from [facility] and the EMS notes were extensively reviewed. Pt was at HD today when she became hypotensive with systolic BP in the 70s and subsequently was noted to be confused. She was given 800 cc of IVF and EMS was called. She was noted to be bradycardic in the 30s so atropine 0.5 mg was given en route with improvement of rate to the 70s. Her HR has continued to be in the 70s in the ED. Patient does have a history of sinus bradycardia, LBBB, and frequent PVCs and was evaluated by cardiology during her admission in May 2023. It was not thought that a pacemaker would improve her blood pressure at that time. She was started on midodrine for BP support. In September, she apparently had an unresponsive episode after HD as well that was attributed to vasovagal response but she has been doing well since then. Currently, pt reports feeling tired but otherwise has no specific complaints. Denies pain or difficulty breathing. Allergies Allergy/AdvReac Type Severity Reaction Status Date / Time No Known Allergies Allergy Verified 03/05/23 12:17 Home Medications Medication Instructions Recorded Confirmed Type aspirin 81 mg tablet,delayed 162 mg PO QAM 11/15/21 10/27/23 History release atorvastatin 80 mg tablet 80 mg PO QPM 11/15/21 10/27/23 History carbidopa 25 mg-levodopa 100 mg 1 tab PO TIDM 11/15/21 10/27/23 History tablet docusate sodium 100 mg capsule 100 mg PO DAILY 11/15/21 10/27/23 History (Colace) levothyroxine 125 mcg tablet 125 mcg PO QAM 11/15/21 10/27/23 History pregabalin 100 mg capsule 100 mg PO BID 11/15/21 10/27/23 History sertraline 100 mg tablet 100 mg PO DAILY 11/15/21 10/27/23 History pantoprazole 20 mg tablet,delayed 20 mg PO BID 05/23/22 10/27/23 History release epinephrine 0.3 mg/0.3 mL 0.3 mg IM DIRECTED PRN Allergic 09/05/22 10/27/23 History injection, auto-injector (EpiPen) Reaction melatonin 10 mg tablet 10 mg PO HS 09/05/22 10/27/23 History ferric citrate 210 mg iron tablet 420 mg PO TIDM 01/21/23 10/27/23 History (Auryxia) fluticasone furoate 200 1 inh inhalation BID 01/21/23 10/27/23 History mcg-vilanterol 25 mcg/dose inhalation powder (Breo Ellipta) cholecalciferol (vitamin D3) 25 25 mcg PO DAILY 10/27/23 10/27/23 History mcg (1,000 unit) capsule midodrine 5 mg tablet 5 mg PO TID 10/27/23 10/27/23 History vitamin B complex-vitamin C-folic 1 tab PO DAILY 10/27/23 10/27/23 History acid 0.8 mg tablet (Nanci-Samuel) Past Med/Surg History Problem List (Updated 10/27/23 @ 17:42 by Ortega Fuentes DO) Hypotension (Acute) Confusion Hypothyroidism Sinus bradycardia Hypotension Hemodialysis status Anemia (Acute) LBBB (left bundle branch block) (Acute) DM type 2 (diabetes mellitus, type 2) Elevated troponin (Acute) Hypertension Toxic metabolic encephalopathy Dialysis disequilibrium syndrome Acute on chronic respiratory failure with hypoxemia Leukocytosis LBBB (left bundle branch block) (Acute) ESRD (end stage renal disease) on dialysis (Acute) RENÉ (obstructive sleep apnea) Anemia of chronic disease End-stage renal disease (ESRD) (Acute) Generalized weakness Parkinson disease Medical History Thickened endometrium Acute ischemic stroke NSTEMI (non-ST elevated myocardial infarction) Elevated troponin I level AV fistula R arm Limb alert care status R arm History of recent hospitalization d/c 09/09/22>per medical record, pt sent to ER at [facility] following dialysis for reddened sores on her buttocks. Admitting dx was enterococcus UTI, decubitus ulcer and sacral cellulitis. Difficult intravenous access Black stools Mobility impaired pt non compliant with hx pt treatments / PT IS IN WHEELCHAIR/TOTAL ASSIST Poor short term memory [place] (hard of hearing) COPD (chronic obstructive pulmonary disease) no medications for currently History of stroke 2019- pts spouse poor historian pt denies hx stroke History of anesthesia reaction "hard time waking up" Hx: recurrent pneumonia History of COVID-19 ? early 2022- mild congestion, no hospitalization, no current issues Non-ST elevation IA (NSTEMI) pt spouse not sure/ mild ? remembers something mentioned in hx/ ? details ESRD (end stage renal disease) on dialysis tues, thur & sat ([place]) Aspiration pneumonia HX Morbid obesity Rheumatoid arthritis ? current status/no meds for Chronic diastolic heart failure EF 50% on 01/2020 echo RACHEL (iron deficiency anemia) Subdural hematoma hx fall 2019 - tx to [facility]/no surgical intervention RENÉ on CPAP Depression Meniere's disease Generalized anxiety disorder Dyslipidemia Restless leg syndrome Diabetes mellitus, type II hx / NO MEDS HTN (hypertension) Surgical History Hx of arteriovenostomy for renal dialysis right arm History of tubal ligation History of carpal tunnel surgery B/L History of orthopedic surgery " bilat heel surgery" H/O sinus surgery Hx of total knee arthroplasty B/L Family History Other AAA (abdominal aortic aneurysm) Diabetes Family history non-contributory Hypertension Myotonic dystrophy Social History Smoking Status: Unknown if ever smoked Tobacco Type: Cigarettes Cigarettes Per Day: 0.25ppd; Second Hand Exposure: No; Do You Dip or Chew Tobacco: No; Hx Alcohol Use: No Hx Substance Use: No Preferred Language: Somali Communication Ability: Effective Communication Ability Comment: pt sometimes has difficulty understanding things, 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: No Beliefs That Will Affect Care: None marital status: Current Living Situation: Jail Current Living Situation Comment: Lives at home with , bed bound Feels Safe at Home: Yes Assistive Devices: CPAP Review of Systems Review of Systems: All systems reviewed & are unremarkable except as noted in Subjective Physical Exam Physical Exam: General: awake, alart, NAD HEENT: no sclera icterus, moist oral mucosa Neck: trachea midline Heart: RRR Lungs: CTA bilaterally Abdomen: soft, +BS Extremities: no pedal edema Skin: warm, dry, no jaundice Neurologic: limited recollection of events from today, moving all extremities, no focal deficits Results & Data Results & Data Vital Signs (Past 12 Hours) Vital Signs Temp Pulse Resp BP Pulse Ox O2 Del Method O2 Flow Rate 10/27/23 12:33 73 15 99 Nasal Cannula 3 10/27/23 12:10 152/84 H 10/27/23 12:10 152/84 H 10/27/23 12:10 152/84 H 10/27/23 12:09 74 10/27/23 12:06 73 19 98 10/27/23 12:06 153/70 H 10/27/23 11:57 97 Nasal Cannula 3 10/27/23 11:41 97 Nasal Cannula 0 10/27/23 11:41 36.4 C L 72 16 153/70 H 97 Nasal Cannula 3 Laboratory Results Lab Results 10/27/23 10/27/23 Range/Units 12:05 12:14 WBC 11.73 H (4.8-10.8) K/ul RBC 3.70 L (4.20-5.40) M/uL Hgb 12.2 (12.0-16.0) g/dl POC Hgb 12.9 (12.0-16.0) g/dl Hct 35.9 L (37.0-47.0) % POC Hct 38 (37-47) % MCV 97.0 (80.0-100.0) fL MCH 33.0 (25.0-34.0) pg MCHC 34.0 (32.0-36.0) g/dL RDW Std Deviation 51.0 H (36.4-46.3) fL RDW Coeff of Bhavin 14.4 (11.5-14.5) % Plt Count 206 (130-400) K/uL MPV 10.6 (9.4-12.4) fL Immature Gran % (Auto) 2.0 % Neut % (Auto) 77.2 % Lymph % (Auto) 7.2 % Pike % (Auto) 7.7 % Eos % (Auto) 4.9 % Baso % (Auto) 1.0 % Neut # (Auto) 9.06 H (1.40-6.50) K/uL Lymph # (Auto) 0.84 L (1.20-3.40) K/uL Pike # (Auto) 0.90 H (0.11-0.59) K/uL Eos # (Auto) 0.58 H (0.00-0.50) K/uL Baso # (Auto) 0.12 (0.00-0.20) K/uL Immature Gran # (Auto) 0.23 H (0.01-0.20) K/uL PT Cancelled INR Cancelled POC Sodium 136 (135-144) mmol/L Sodium 137 (136-145) mmol/L POC Potassium 3.1 L (3.3-5.0) mmol/L Potassium 3.1 L (3.5-5.1) mmol/L POC Chloride 95 L (101-112) mmol/L Chloride 92 L (98-107) mmol/L Carbon Dioxide 31 (21-32) mmol/L POC Total CO2 31 (24-31) mmol/L Anion Gap 14 H (3-11) POC Anion Gap 15.0 L (16-25) mmol/L POC BUN 31 H (7-18) mg/dl BUN 30 H (6-23) mg/dl Creatinine 4.10 H (0.6-1.2) mg/dl POC Creatinine 4.6 H* (0.6-1.3) mg/dl Est Cr Clr Drug Dosing 13.0 ml/min Est GFR ( Amer) 11.4 ml/min Est GFR (Non-Af Amer) 9.9 ml/min BUN/Creatinine Ratio 7.3 L (10-20) Glucose 125 H (70-99(Fasting)) mg/dl POC Glucose (other) 127 H (70-99) mg/dl Calcium 9.5 (8.6-10.3) mg/dl POC Ioniz Calcium Oh 1.10 L (1.12-1.32) mmol/l Total Bilirubin 0.3 (0.2-1.0) mg/dl AST 22 (13-39) U/L ALT 8 (7-52) U/L Alkaline Phosphatase 95 (34-104) U/L Troponin I High Sens 38.3 H (0-14) pg/ml Total Protein 8.2 (6.0-8.3) gm/dl Albumin 4.4 (3.4-5.0) gm/dl Globulin 3.8 (2.5-4.0) gm/dl Albumin/Globulin Ratio 1.2 (0.9-2) Lipase 48 (11-82) U/L Diagnostic Findings Chest X-Ray 10/27/23 11:58 XR chest 1V portable CLINICAL HISTORY: dizzy TECHNIQUE: Single frontal radiograph of the chest was obtained. Comparison: Comparison is made to chest radiograph 05/23/2023 FINDINGS: No lines and tubes are seen. Cardiomegaly is noted. The aortic arch is calcified. Prominence and cephalization of the vasculature is seen. No evidence of pleural effusion or pneumothorax. IMPRESSION: Cardiomegaly and mild pulmonary edema. ACT 112: Negative or not required by law. Electronically signed by: Gato Nix M.D. 10/27/2023 12:18 PM (2) Hypotension Hypotension type: unspecified hypotension type Qualified Code(s): I95.9 - Hypotension, unspecified (6) Parkinson disease Dyskinesia presence: unspecified whether dyskinesia Fluctuating manifestations: unspecified whether manifestations fluctuate Qualified Code(s): G20.A1 - Parkinson's disease without dyskinesia, without mention of fluctuations (8) Hypothyroidism Hypothyroidism type: unspecified Qualified Code(s): E03.9 - Hypothyroidism, unspecified
--- NOTE | 2023-10-27 13:25 | Electrocardiogram Report ---
Test Reason : Blood Pressure : */* mmHG Vent. Rate : 75 BPM Atrial Rate : 75 BPM P-R Int : 176 ms QRS Dur : 154 ms QT Int : 474 ms P-R-T Axes : 56 24 59 degrees QTcB Int : 529 ms Sinus rhythm with Premature ventricular complexes Left bundle branch block Abnormal ECG When compared with ECG of 23-May-2023 18:36, Premature ventricular complexes are no longer Present Left bundle branch block is now Present Criteria for Septal infarct are no longer Present Confirmed by Angel Lopez ([id number]) on 10/27/2023 1:25:07 PM Referred By: Confirmed By: Angel Lopez
[2023-10-27 13:41] LABS: INR 0.9 (0.9-1.1); Prothrombin Time 9.8 Seconds (9.0-12.0)
[2023-10-27 13:50] LABS: Appearance Urine Cloudy (Clear); Bilirubin Urine 1+ (Negative); Blood Urine 3+ (Negative); Color Urine Amber; Glucose Urine UA Negative (Negative); Ketones Urine Negative (Negative); Leukocyte Esterase Urine Trace (Negative); Nitrite Urine Negative (Negative); Protein Urine 3+ (Negative); Urobilinogen Urine Negative (Negative); pH Urine 8.5 (4.5-7.5)
[2023-10-27 13:58] LABS: Epithelial Cell Urine >20 /hpf (0-2)
[2023-10-27 13:59] LABS: RBC Urine >20 /hpf (0-2); WBC Urine 21-50 /hpf (0-5)
[2023-10-27 14:02] LABS: Bacteria Urine 1+ (None Seen); Renal Epithelial Cells Urine Present /lpf (None Presnt)
[2023-10-27 15:01] LABS: Troponin I High Sensitivity 33.5 pg/ml (0-14)
[2023-10-27 15:10] LABS: Thyroid Stimulating Hormone 3.18 uIu/ml (0.300-4.500)
[2023-10-27] MEDS ORDERED: ACETAMINOPHEN 325 MG TAB PO PRN (15:43)
--- NOTE | 2023-10-27 15:55 | Communication Note ---
Date of Service: October 27, 2023 Attending Addendum: Case reviewed with the advanced practitioner. I have personally performed a history and physical examination on the patient. I have reviewed the advanced practitioner's documentation on the date of service referenced in note, and I agree with, and take responsibility for the plan of care. please refer to her notes for full details patient seen and examined, records reviewed by myself as well on exam, patient seen resting in bed, sitting up on 2 L O2, comfortable very hard of hearing states she feels ok overall no chest pain, dyspnea, palpitations, dizziness no other symptoms VS noted and reviewed oriented x 1 , not in distress, speaks in sentences with no effort nor accessory muscle use normal rate, regular rhythm, no murmurs clear breath sounds bilaterally non distended, soft, nontender no bipedal edema, erythema, warmth no neuro deficits all labs, imaging noted and reviewed ASSESSMENT AND PLAN EPISODE OF BRADYCARDIA, HYPOTENSION improved with Atropine, IV fluids had similar presentation last May 2023 r/o infection- no clear etiology at this time, check blood culture check TSH, cortisol Cardiology consulted other diagnoses and plan of care as per advanced practitioner's notes Jacobo Mcclendon MD
[2023-10-27] MEDS: CARBIDOPA/LEVODOPA 25/100MG TAB PO SCH (16:55)
[2023-10-27] MEDS: MIDODRINE HCL 2.5 MG TAB PO SCH (16:55)
--- OUTSIDE RECORDS SUMMARY | 2023-10-27 21:09 | External Medical Summary | Summary of Care ---
Author Name Unknown Organization [facility] Address [address] [facility] [place] [address] Phone [phone] Care Team Providers Care Quantity Surveyor Name Role Phone Bella Power MD Primary Care Prov ider Encounter Details Date Type Department Care Team (Late st Contact Info) Description 09/03/2023 Population Health External Data Unspecified Department Allergies No known active allergiesdocumented as of this encounter (statuses as of 09/03/2023) Medications Medication Sig Dispensed Refills Start Date [...] 1 Each 1 11/27/2018 Active DIURETIC TITRATION PLANIndications:Bakery Associate sandro heart failure with preserved ejection fraction (HCC) If no improvement on day 3, contact heart failure managing provider. 1 Each 12/10/2018 Active Melatonin 10 MG Tablet Take 1 Tablet by mouth every night at bedtime. Active DIURETIC TITRATION PLAN If no improvement on day 3, contact heart failure managing provider. Active acetaminophen (TYLENOL) 325 MG Tablet Take 2 Tabs by mouth every 6 hours as needed for Pain. 30 Tab 04/27/2019 Active Cholecalciferol (VITAMIN D3) 125 MCG (5000 UT) Tablet Take 1 Capsule by mouth in the morning. 09/15/2019 Active EPINEPHrine, Anaphylaxis, 1 MG/ML SOLN Inject 0.3 mL as directed as needed for Anaphylaxis (severe allergic reaction). 0.3 mL 10/14/2019 Active Aspirin 81 MG Oral Tablet Delayed ReleaseIndications:A SCVD (arteriosclerotic cardiovascular disease) Take 2 Tablets by mouth in the morning. 30 Tab 5 12/03/2019 Active Meclizine HCl 12.5 MG Oral Tablet (ANTIVERT) Take 1 Tablet by mouth 3 times a day as needed. Active Breo Ellipta 200-25 MCG/INH Inhalation Aerosol Powder Breath Activated (fluticasone furoate-vilanterol)I ndications:COPD, group B, by GOLD 2017 classification ([facility]) Inhale by mouth 1 Puff in the morning. 60 Each 08/22/2021 Active Auryxia 1 GM 210 MG(Fe) Oral Tablet TAKE 1 TABLET BY MOUTH THREE TIMES A DAY WITH MEALS. SWALLOW WHOLE, DO NOT CHEW OR CRUSH MEDICATION 05/11/2022 Active Nanci-Samuel Oral Tablet Take 1 Tablet by mouth in the morning. 05/16/2022 Active Carbidopa-Levodopa 25-100 MG Oral Tablet (Sinemet) TAKE ONE TABLET BY MOUTH THREE TIMES A DAY WITH MEALS 90 Tablet 5 09/14/2022 4 Active Lidocaine-Prilocaine 2.5-2.5 % External Cream (Emla) APPLY SMALL AMOUNT TO ACCESS SITE (AVF) 1 TO 2 HOURS BEFORE DIALYSIS. COVER WITH OCCLUSIVE DRESSING (SARAN WRAP) 30 g 11 11/09/2022 Active Nystatin 523781 UNIT/GM External Powder (Nystop) Apply topically to affected area 2 times a day. 60 g 5 11/09/2022 Active Pantoprazole Sodium 20 MG Oral Tablet Delayed Release (Protonix) Take 1 Tablet by mouth in the morning and 1 Tablet in the evening. 180 Tablet 1 11/27/2022 Active CPAP every night at bedtime. Active Coloplast PasteIndications:Hem orrhoids, external without complications Use to hemorrhoids 1-2 times per day as needed for hemorrhoids 57 g 3 03/13/2023 Active Hydrocortisone (Perianal) 2.5 % External Cream (Procto-Med HC)Indications:Hemor rhoids, external without complications Administer into the rectum daily as needed for Hemorrhoids. 28 g 2 03/13/2023 Active Midodrine HCl 10 MG Oral Tablet (Proamatine) Take 1 Tablet by mouth in the morning and 1 Tablet at noon and 1 Tablet in the evening. 05/28/2023 Active Calmoseptine 0.44-20.6 % External Ointment (Menthol-Zinc Oxide) Apply 113 g topically to affected area as needed for Hemorrhoids. Apply to buttocks Active Pregabalin 100 MG Oral Capsule (Lyrica)Indications: Primary parkinsonism (HCC) Take 1 capsule by mouth twice daily. May take 1 extra capsule after dialysis 3 days a week 72 Capsule 5 08/13/2023 Active documented as of this encounter (statuses as of 09/03/2023) Active Problems Problem Noted Date Diagnosed Date [...] as of this encounter (statuses as of 09/03/2023) Resolved Problems Problem Noted Date Diagnosed Date [...] as of this encounter (statuses as of 09/03/2023) Immunizations Name Administration Dates Next Due COVID-19 mRNA, LNP-s, No Pre serve, 2-Dose Series (Jeeran) 01/02/2021,06/21/2020,05/24/2020 COVID-19, mRNA, LNP-s, PF, B ooster, [...] I IV3, With Preserve, Inj 11/22/2013,12/25/2012,12/24/2011,12/04,12/08/2008,12/25/2007,01/19/2007 ,01/21/2006 TDAP, Age 7 and older, IM (Adacel) 06/27/2009 Varicella Zoster Vaccine (Adult) 10/23/2011 documented [...] as of this encounter Plan of Treatment Scheduled Procedures Name Priority Associated Diagnoses Date/Ti me COLONOSCOPY FLEXIBLE PROXIMA L DIAGNOSTIC Recall Encounter for screening colonoscopy Health Maintenance Due Date Last Done Comments Zoster Vaccines (2 of 3) 12/18/2011 10/23/2011 Depression Screening 01/22/2020 01/21/2019 COVID-19 Vaccine (2022-2 4 season) 2022 01/17/2022, 07/23/2021, 01/02/2021, Additional history exists Influenza Vaccine (FLU shot) (Season Ended) 2023 12/29/2021, 12/04/2021, 05/31/2021, Additional history exists O2 ASSESSMENT COMPLETED IN [...] Documents on File Type Date Recorded Patient [employer] Expl anation Power of Grant Specialist 12/16/2018 10:33 AM Nate r of Grant Specialist * Full Code (Latest Code Status on File) Date Activated Date Inactivated Comments 03/09/2023 4:12 AM 03/18/2023 6:31 PM This order r eflects the patients wishes and were consensually agreed upon. Question Answer Comments Discussion of Advance Directives occurred with: Patient * Limited Code Date Activated Date Inactivated Comments 04/25/2019 7:49 AM 04/30/2019 8:58 PM Spoke to kathryn ent's spouse regarding code status. He would like to be called in case of need for intubation. She is listede as no code in advanced directive. May consider intubation if it would be for potentially reversible reasons This order reflects the patients wishes and were consensually agreed upon. Question Answer Comments Discussion of Advance Direct carin occurred with: Patient/Family Does the patient have a Living Will? Yes , in chart and reviewed as current Bag Valve Device? Yes Intubation? Yes Cardiac Compressions? No Defibrillation? No Synchronized Cardioversion? No External Pacemaker? No Cardiac Drugs? No * Full Code Date Activated Date Inactivated Comments 04/20/2019 7:06 PM 04/25/2019 7:49 AM Question Answer Comments Discussion of Advance Directives occurred with: Not Discussed Does the patient have a Living Will? No Does the patient have Health Care Power of Attor darinel? No Healthcare Agents on File Name Relationship Healthcare Agent Relationshi p Communication Wesley E Sonya Spouse Health Care Agent Care Teams Quantity Surveyor Relationship Specialty Start Date End Date Bella Power MD [address] [place] [address] [place] [id number] PCP - General Family Medicine 04/02/19 documented as of this encounter
--- OUTSIDE RECORDS SUMMARY | 2023-10-27 21:09 | External Medical Summary ---
Author Name Unknown Address Unknown Organization [id number]:[facility] [place] [address] [facility] [place] [id number] Laboratory Report Ordering Provider Test Date Status SIRISHA PRESCOTT 09/22/2023 05:43:00 Final Observation Date Value Abnormality Reference (Units ) Status Triglyceride 09/22/2023 05:43:00 159 <=174 ( mg/dL) Final Triglyceride Reference Range s (mg/dL):
<150 Acceptable
150-174 Borderline high
175-499 High
>=500 Very high Cholesterol 09/22/2023 05:43:00 141 <200 (mg /dL) Final Total Cholesterol Reference Ranges (mg/dL):
<200 Desirable
200-239 Borderline high
>=240 High HDL 09/22/2023 05:43:00 50 >49 (mg/dL ) Final HDL Cholesterol Reference Ra nges (mg/dL):
>=60 High (Desirable)
<50 Low (Undesirable) For Females
<40 Low (Undesirable) For Males NON-HDL CHOLESTEROL 09/22/2023 05:43:00 91 <=159 (mg/dL) Final Non-HDL Cholesterol Referenc e Range (mg/dL):
<100 Target level for high risk ASCVD patient
<130 Optimal for general population
130-159 Near optimal for general population
160-189 Borderline High
190-219 High
>=220 Very High LDL, (calculated) 09/22/2023 05:43:00 59 <= 129 (mg/dL) Final LDL Cholesterol Reference Ra nges (mg/dL):
<70 Target level for high risk ASCVD patient
<100 Optimal for general population
100-129 Near optimal for general population
130-159 Borderline high
160-189 High
>=190 Very high Performing Location [facility] [place] [address] [facility] [id number]
--- OUTSIDE RECORDS SUMMARY | 2023-10-27 21:09 | External Medical Summary | Summary of Care ---
Author Name Unknown Organization [facility] Address [address] [place] [address] Phone [phone] Care Team Providers Care Unishear Operator Name Role Phone Bella Power MD Primary Care Prov ider Reason for Visit * Reason Onset Date Comments Complicated Acute Visit 10/06/2023 Encounter Details Date Type Department Care Team (Latest Contact Info) Description 10/06/2023 11:00 AM EDT Jail Visit [facility] [address] [place] [address] Nae Rodriges PA-C [address] [place] [address] Unresponsive episode*; Diabetes mellitus with ESRD (end-stage renal disease) ([facility]); ESRD (end stage renal disease) on dialysis ([facility]); 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[facility]) Allergies No known active allergiesdocumented as of this encounter (statuses as of 10/06/2023) Medications Medication Sig Dispensed Refills Start Date [...] ([facility]) Inhale via nebulizer. Use as directed. 1 Each 1 11/27/2018 Active DIURETIC TITRATION PLANIndications:Grooming Assistant sandro heart failure with preserved ejection [...] by mouth in the morning. 05/16/2022 Active Lidocaine-Prilocaine 2.5-2.5 % External Cream (Emla) APPLY SMALL AMOUNT TO ACCESS SITE (AVF) 1 TO 2 HOURS BEFORE DIALYSIS. COVER WITH OCCLUSIVE DRESSING (SARAN WRAP) 30 g 11 11/09/2022 Active Nystatin 831464 UNIT/GM External Powder (Nystop) Apply topically to [...] as of this encounter (statuses as of 10/06/2023) Active Problems Problem Noted Date Diagnosed Date [...] as of this encounter (statuses as of 10/06/2023) Resolved Problems Problem Noted Date Diagnosed Date [...] as of this encounter (statuses as of 10/06/2023) Immunizations Name Administration Dates Next Due COVID-19 mRNA, LNP-s, No Pre serve, 2-Dose Series (Appsembler) 01/02/2021,06/21/2020,05/24/2020 COVID-19, mRNA, LNP-s, PF, B ooster, [...] Progress Notes * Nae Rodriges PA-C - 10/06/2023 2:12 PM EDT Name: Kami Hassan Date of :1945 TRANSITION EVENT: Type: Complicated acute visit Date: October 05 Code Status: Full Code This note pertains to care provided at [facility]. Please see facility medical record for original note. This note is not to be edited or addended in [employer]. Editing or addending needs to occur in the facilities medical record. Subjective: Kami Hassan is a 78 year old female. Patient being seen for unresponsive episode Chief Complaint Patient presents with Complicated Acute Visit HPI: I was asked to assess pt for sudden unresponsive episode which occurred this afternoon. Episode lasted less than one minute. Pt returned from dialysis and had the episode in presence of nursing staff. Staff note that pt did have BM shortly before the episode. No seizure activity noted. Vital signs were alll stable. Blood glucose was 127mg%. Pt was somnolent for several minutes following the episode. Pt is now sleeping comfortably but is arousable and conversant with me. Pt doesn't recalll the episode. Pt has dementia with PD. No headache, dizziness, chest pains, palpitations, dyspnea. Labs done at dialysis center. 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 factor (HCC) Primary parkinsonism (HCC) History of non-ST elevation myocardial infarction (NSTEMI) Venous stasis dermatitis of both lower extremities COPD, group B, by GOLD 2017 classification ([facility]) Chronic heart failure with preserved ejection fraction ([facility]) Iron deficiency anemia due to chronic blood loss Diabetes mellitus with ESRD (end-stage renal disease) ([facility]) Personal history of fall History of CVA (cerebrovascular accident) AVF (arteriovenous fistula) ([facility]) 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[facility]) Palliative care encounter Acquired hypothyroidism ESRD (end stage renal disease) on dialysis ([facility]) 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 ([facility]) Morbid (severe) obesity due to excess calories ([facility]) Full code status History of colon polyps Past Medical History: Diagnosis Date (HFpEF) heart failure with preserved ejection fraction ([facility]) Acute on chronic diastolic (congestive) heart failure ([facility]) 03/04/2020 [facility] Allergic rhinitis 02/15/2000 acute BMI 38.0-38.9,adult 08/28/2009 Chronic Sinusitis Unspecified Controlled substance agreement signed 11/25/2016 COVID-19 10/23/2021 Cystitis 05/23/2022 admitted [facility] home on cefuroxime Dyslipidemia, goal LDL below 100 Esophagitis determined by biopsy 04/19/2022 LA grade B esophagitis, inflammation gastric antrum, body and duodenum AYSHA (generalized anxiety disorder) Hearing loss, sensorineural 01/2005 History of non-ST elevation myocardial infarction (NSTEMI) 08/24/2018 HTN (hypertension) Meniere's disease Multiple falls 04/20/2019 History of falls on the pl NSTEMI (non-ST elevated myocardial infarction) ([facility]) 09/03/2018 Parkinson disease ([facility]) Rectal bleeding Restless leg syndrome 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 Del Real CARPAL TUNNEL SURGERY Bilateral COLONOSCOPY, DIAGNOSTIC (RECTUM) 11/27/2015 normal, repeat 10 yrs/COLONOSCOPY FLEXIBLE PROXIMAL DIAGNOSTIC performed by Garrett Chang MD at ENDOSCOPY [facility] COLONOSCOPY, DIAGNOSTIC (RECTUM) 09/20/2022 serrated polyp, fair prep / [facility] EGD, FLEXIBLE, DIAGNOSTIC 04/19/2022 esophagitis, repeat 8-12 wks / [facility] EGD, FLEXIBLE, DIAGNOSTIC 06/26/2022 normal, retained food / [facility] EGD, FLEXIBLE, DIAGNOSTIC N/A 01/24/2023 normal/EGD/[place] EXPLORATION OF MAXILLARY SINUS 03/17/1995 Sinus Surgery HYSTEROSCOPY,DIAGNOSTIC 2022 atrophic endometrium, endometrial polyp INJECTION LUMBAR/SACRAL 07/31/2015 INJECTION SPINE LUMBAR OR SACRAL performed by Quincy Prado, at OR [facility] INJECTION LUMBAR/SACRAL 08/15/2015 INJECTION SPINE LUMBAR OR SACRAL performed by Quincy Prado, DO at OR [facility] MARLI CAT,W/O PUMP;5YR/OLD N/A 11/04/2019 INSERT TUNNELED CENTRAL VENOUS CATHETER AGE 6 OR OLDER performed by Ortega Montez DO at OR [facility] MARLI CAT,W/O PUMP;5YR/OLD Right 03/09/2023 INSERT TUNNELED CENTRAL VENOUS CATHETER AGE 6 OR OLDER performed by Fred Brown MD at [place] [facility] INTRO CATH DIALYSIS CIRCUIT W/TRANSLUM BALLOON ANGIOPLASTY Right 03/09/2023 AV FISTULOGRAM & PERIPHERAL ANGIOPLASTY performed by Fred Brown MD at OR [facility] LIGATE/CUT OVIDUCT(S) MISCELLANEOUS ORDER ([facility] ONLY) Bilateral Heel surgery MISCELLANEOUS ORDER ([facility] ONLY) Right 3rd toe nerve decompression, Dr. Del Real NE COLSC FLX W/RMVL OF TUMOR POLYP LESION SNARE TQ 09/20/2022 7 mm serrated polyp descending colon Family History Problem Relation Name Age of Onset Heart Disorder Father also [...] date: 04/20/1939 Quit date: 04/20/1989 Years since quittin.4 Smokeless tobacco: Never Tobacco comments: smoked since 19 years of age. Smokes a pack every 3-4 days. Vaping Use Vaping status: Never Used Substance and Sexual Activity Alcohol use: Never Drug use: Never Sexual activity: Not Currently Partners: Male Other Topics Concern Not on file Social History Narrative Merged History Encounter Retired [employer] Social Determinants of Health Financial Resource Strain: Not on file Food Insecurity: No Food Insecurity (03/09/2023) Food Insecurity Do you need food for this week? (Adult - for ages 18 years and over): No Are you able to get enough food for your family? (Household - for ages 0-17 years): Not on file Does your family need food this week? (Household - for ages 0-17 years): Not on file Do you always have enough food for your family? (Household - for ages 0-17 years): Not on file Transportation Needs: No Transportation Needs (03/09/2023) Transportation Needs Do you have trouble getting a ride to medical visits or work? (Adult - for ages 18 years and over):Never True Does your family have a hard time getting a ride to doctors visits? (Household - for ages 0-17 years): Not on file Has lack of transportation kept you from medical appointments, meetings, work, or from getting things needed for daily living? Check all that apply. (Adult - for ages 18 years and over): Not on file Do you (or your family) have trouble finding or paying for a ride (transportation)? (Household - for ages 0-17 years): Not on file Social Connections: Unknown (10/06/2023) Social Connections How often do you feel lonely or isolated from those around you? (Adult - for ages 18 years and over): Not on file Housing Stability: Low Risk (03/09/2023) Housing Stability Do you currently live in a senior living or have no steady place to sleep at night? (Adult - for ages 18 years and over): Not on file Do you think you are at risk of becoming homeless? (Adult - for ages 18 years and over): No Does your family worry about paying for your home or becoming homeless? (Household - for ages 0-17 years): Not on file Are you homeless or worried that you might be in the future? (Adult - for ages 18 years and over): Not on file Are you (or your family) homeless or worried that you might be in the future? (Household - for ages0-17 years): Not on file Review of patient's allergies indicates: No Known Allergies I have reviewed medications and allergies. Please refer to MAR in the facility's medical record forthe most up-to-date medication list as this cannot be edited in [employer]. Review of Systems: obtained from pt and staff Constitutional ROS: No change in weight, +weakness, + fatigue and No fevers, sweats, or chills Nose ROS: No nasal stuffiness [...] Neurologic ROS: No headaches and No seizures +PD Psychiatric ROS: No depression, No anxiety and No psychosis +dementia Sleep: No sleep disorders OBJECTIVE: PHYSICALEXAM: I reviewed the most recent facilities vitals. General: alert, no distress, well nourished and well developed Head: Normocephalic, No masses, lesions, tenderness or abnormalities Eye Exam: Conjunctiva are pink and non-injected, [...] sounds and no masses or organomegaly Extremities: , no edema, no clubbing, no cyanosis Neuro Exam: alert & oriented x 1 with fluent speech, PD rigidity and tremors Skin: skin color, texture, turgor are normal, no rashes or significant lesions ASSESSMENT: Unresponsive episode (Primary) Most likely vasovagal and also went to dialysis very early this morning and pt usually sleeps in during the morning Pt back to her baseline now Reviewed vital signs Will follow closely 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) Glucoses stable Continue to monitor ESRD (end stage renal disease) on dialysis ([facility]) Continue with dialysis three days weekly 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HCC) Stable mood and mentation Continue with Sinemet 25/100mg TID PLAN: Reviewed vital signs and glucoses and Continue present medication(s):as ordered. [facility] Given: as above Electronically signed by: Nae Rodriges PA-C Over 45 minutes were spent in this visit more than half the time was spent counselling or coordinating care. documented in this encounter Plan of Treatment Scheduled Procedures Name Priority Associated Diagnoses Date/Ti me COLONOSCOPY FLEXIBLE PROXIMA L DIAGNOSTIC Recall Encounter for screening colonoscopy Health Maintenance Due Date Last Done Comments Zoster Vaccines (2 of 3) 12/18/2011 10/23/2011 Depression Screening 01/22/2020 01/21/2019 COVID-19 Vaccine (2022-2 4 season) 2022 01/17/2022, 07/23/2021, 01/02/2021, Additional history exists Influenza Vaccine (FLU shot) (#1) 2023 01/02/2023, 12/29/2021, 12/04/2021, Additional history exists O2 ASSESSMENT COMPLETED IN [...] as of this encounter Visit Diagnoses Diagnosis Unresponsive episode- Primary Other alteration of consciousness 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) Type II or unspecified type diabetes mellitus with renal manifestations, not stated as uncontrolled ESRD (end stage renal disease) on dialysis (HCC) End stage renal disease 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[facility]) documented in this encounter Advance Directives Documents on File Type Date Recorded Patient Front Desk Admin Expl anation Power of Production Supervisor 12/16/2018 10:33 AM Nate r of Production Supervisor * Full Code (Latest Code Status on File) Date Activated Date Inactivated Comments 03/09/2023 4:12 AM 03/18/2023 6:31 PM This order r eflects the patients wishes and were consensually agreed upon. Question Answer Comments Discussion of Advance Directives occurred with: Patient * Limited Code Date Activated Date Inactivated Comments 04/25/2019 7:49 AM 04/30/2019 8:58 PM Spoke to kathryn pitts's spouse regarding code status. He would like [...] Hassan Spouse Health Care Agent Care Teams Unishear Operator Relationship Specialty Start Date End Date Bella Power MD [address] [place] [address] ROD [place] [id number] PCP - General Family Medicine 04/02/19 documented as of this encounter
--- OUTSIDE RECORDS SUMMARY | 2023-10-27 21:09 | External Medical Summary | Summary of Care ---
Author Name Unknown Organization [facility] Address [address] [place] [address] Phone [phone] Care Team Providers Care Care Provider Name Role Phone Bella Power MD Primary Care Prov ider Reason for Visit * Reason Onset Date Comments Fdc Visit 08/18/2023 Encounter Details Date Type Department Care Team (Latest Contact Info) Description 08/18/2023 11:30 AM EDT Fdc Visit [facility] [address] [place] [address] Nae Rodriges PA-C [address] [place] [address] Arthritis of left shoulder region*; Anemia in end-stage renal disease ([facility]); 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[facility]); ESRD (end stage renal disease) on dialysis ([facility]) Allergies No known active allergiesdocumented as of this encounter (statuses as of 08/18/2023) Medications Medication Sig Dispensed Refills Start Date [...] 2017 classification ([facility]) Inhale via nebulizer. Use as directed. 1 Each 1 11/27/2018 Active DIURETIC TITRATION PLANIndications:Regional Rehabilitation Director sandro heart failure with preserved ejection [...] by mouth in the morning. 05/16/2022 Active Sertraline HCl 100 MG Oral Tablet [...] DAY WITH MEALS 90 Tablet 5 09/14/2022 Active Lidocaine-Prilocaine 2.5-2.5 % External Cream (Emla) APPLY SMALL AMOUNT TO ACCESS SITE (AVF) 1 TO 2 HOURS BEFORE DIALYSIS. COVER WITH OCCLUSIVE DRESSING (SARAN WRAP) 30 g 11 11/09/2022 Active Nystatin 778269 UNIT/GM External Powder (Nystop) Apply topically to [...] as of this encounter (statuses as of 08/18/2023) Active Problems Problem Noted Date Diagnosed Date [...] as of this encounter (statuses as of 08/18/2023) Resolved Problems Problem Noted Date Diagnosed Date [...] as of this encounter (statuses as of 08/18/2023) Immunizations Name Administration Dates Next Due COVID-19 [...] Progress Notes * Nae Rodriges PA-C - 08/18/2023 2:19 PM EDT Name: Kami Hassan Date of :1945 TRANSITION EVENT: Type: Non-applicable Date: August 17 Code Status: Full Code This note pertains to care provided at [facility]. Please see facility medical record for original note. This note is not to be edited or addended in [employer]. Editing or addending needs to occur in the facilities medical record. Subjective: Kami Hassan is a 77 year old female. Patient being seen for left shoulder pain Chief Complaint Patient presents with Fdc Visit HPI: I was asked to assess pt for complaints she made to staff of left shoulder pain. Pt has been requesting tylenol for pain. No hx of recent trauma to shoulder. Pain with ROM. Affecting sleep. Pt has dementia and is poor historian. Labs done at dialysis center. CBC Results: Results for orders placed or performed in visit on 07/11/23 CBC Result Value Ref Range WBC 9.27 4.00 - 10.80 K/uL RBC 4.04 3.85 - 5.15 M/uL HGB 12.0 12.0 - 15.3 g/dL HCT 38.0 36.0 - 45.2 % MCV 94.1 81.5 - 97.5 fL MCH 29.7 27.0 - 34.0 pg MCHC 31.6 32.0 - 36.0 g/dL RDW 18.4 11.5 - 15.5 % PLT 213 140 - 400 K/uL MPV 11.3 6.6 - 11.1 fL Hemoglobin Results: Lab Results Component Value Date/Time HGB 12.0 07/11/2023 05:57 AM HGB 13.8 05/14/2023 06:13 AM HGB 9.6 (L) 04/01/2023 01:22 PM HGB 9.4 (A) 02/18/2023 12:00 AM HGB 9.7 (A) 06/12/2021 12:00 AM HGB 10.8 (A) 07/10/2020 12:00 AM HGB 7.9 (L) 02/28/2020 04:45 PM HGB 8.9 (L) 02/16/2020 11:45 AM HGB 8.5 (L) 12/03/2019 01:09 PM Basic Panel [...] Results Component Value Date/Time CREATININE - [facility] 6.5 (H) 07/11/2023 05:57 AM CREATININE - [facility] 9.2 (H) 03/18/2023 08:00 AM CREATININE - [facility] 5.7 (H) 03/16/2023 05:05 AM CREATININE - [facility] 5.2 (H) 10/27/2019 [...] 4.3 06/24/1996 04:55 PM POTASSIUM - [facility] 4.9 07/11/2023 05:57 AM POTASSIUM - [facility] 4.6 03/18/2023 08:00 AM POTASSIUM - [facility] 3.8 03/16/2023 05:05 AM POTASSIUM - [facility] 3.9 10/27/2019 10:00 [...] Results Component Value Date/Time SODIUM - [facility] 138 07/11/2023 05:57 AM SODIUM - [facility] 131 (L) 03/18/2023 08:00 AM SODIUM - [facility] 134 (L) 03/16/2023 05:05 AM SODIUM - [facility] 145 10/27/2019 10:00 AM SODIUM - [facility] 144 10/22/2019 12:02 PM SODIUM - [facility] 143 10/14/2019 03:46 PM SODIUM POCT - [facility] 141 04/25/2019 07:11 AM SODIUM POCT - [facility] 142 01/11/2019 12:09 PM 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 factor ([facility]) Primary parkinsonism ([facility]) History of non-ST elevation myocardial infarction (NSTEMI) Venous stasis dermatitis of both lower extremities COPD, group B, by GOLD 2017 classification ([facility]) Chronic heart failure with preserved ejection fraction ([facility]) Iron deficiency anemia due to chronic blood loss Diabetes mellitus with ESRD (end-stage renal disease) ([facility]) Personal history of fall History of CVA (cerebrovascular accident) AVF (arteriovenous fistula) ([facility]) 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[facility]) Palliative care encounter Acquired hypothyroidism ESRD (end stage renal disease) on dialysis ([facility]) 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 ([facility]) Morbid (severe) obesity due to excess calories ([facility]) Full code status History of colon polyps Past Medical History: Diagnosis Date (HFpEF) heart failure with preserved ejection fraction ([facility]) Acute on chronic diastolic (congestive) heart failure (HCC) 03/04/2020 [facility] Allergic rhinitis 02/15/2000 acute BMI 38.0-38.9,adult 08/28/2009 Chronic Sinusitis Unspecified Controlled substance agreement signed 11/25/2016 COVID-19 10/23/2021 Cystitis 05/23/2022 admitted [facility] home on cefuroxime Dyslipidemia, goal LDL below [...] both hands with positive rheumatoid factor ([facility]) 07/18/2016 SDH (subdural hematoma) ([facility]) 04/20/2019 acute Serrated polyp of colon 09/20/2022 7 mm descending colon Sleep apnea Tinnitus 01/2005 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 Del Real CARPAL TUNNEL SURGERY Bilateral COLONOSCOPY, DIAGNOSTIC (RECTUM) 11/27/2015 normal, repeat 10 yrs/COLONOSCOPY FLEXIBLE PROXIMAL DIAGNOSTIC performed by Garrett Chang MD at ENDOSCOPY [facility] COLONOSCOPY, DIAGNOSTIC (RECTUM) 09/20/2022 serrated polyp, fair prep / [facility] EGD, FLEXIBLE, DIAGNOSTIC 04/19/2022 esophagitis, repeat 8-12 wks / [facility] EGD, FLEXIBLE, DIAGNOSTIC 06/26/2022 normal, retained food / [facility] EXPLORATION OF MAXILLARY SINUS 03/17/1995 Sinus Surgery HYSTEROSCOPY,DIAGNOSTIC 2022 atrophic endometrium, endometrial polyp INJECTION LUMBAR/SACRAL 07/31/2015 INJECTION SPINE LUMBAR OR SACRAL performed by Quincy Prado DO at OR [facility] INJECTION LUMBAR/SACRAL 08/15/2015 INJECTION SPINE LUMBAR OR SACRAL performed by Quincy Prado DO at OR [facility] INSER MARLI CAT,W/O PUMP;5YR/OLD N/A 11/04/2019 INSERT TUNNELED CENTRAL VENOUS CATHETER AGE 5 OR OLDER performed by Ortega Montez DO at OR [facility] MARLI CAT,W/O PUMP;5YR/OLD Right 03/09/2023 INSERT TUNNELED CENTRAL VENOUS CATHETER AGE 5 OR OLDER performed by Fred Brown MD at OR [facility] INTRO CATH DIALYSIS CIRCUIT W/TRANSLUM BALLOON ANGIOPLASTY Right 03/09/2023 AV FISTULOGRAM & PERIPHERAL ANGIOPLASTY performed by Fred Brown MD at OR [facility] LIGATE/CUT OVIDUCT(S) MISCELLANEOUS ORDER ([facility] ONLY) Bilateral Heel surgery MISCELLANEOUS ORDER ([facility] ONLY) Right 3rd toe nerve decompression, Dr. Del Real [place] COLSC FLX W/RMVL OF TUMOR POLYP LESION [...] date: 04/20/1939 Quit date: 04/20/1989 Years since quittin.3 Smokeless tobacco: Never Tobacco comments: smoked since 19 years of age. Smokes a pack every 3-4 days. 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 Review of Systems: obtained from pt and [...] no distress, well nourished and well developed Exam: Conjunctiva are pink and non-injected, sclera [...] sounds and no masses or organomegaly Extremities: tenderness to palpation of left GH and AC joint , painful arc of motion. no edema, no clubbing, no cyanosis Skin: skin color, texture, turgor are normal, no rashes or significant lesions ASSESSMENT: Arthritis of left shoulder region (Primary) Discussed Rx options Pt refused injection at this time Will begin Voltaren gel 4 G TID Will follow Anemia in end-stage renal disease (HCC) Stable anemia Continue with dialysis three days weekly 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HCC) Stable mood and mentation and PD Continue Sinemet 25/100mg TID and Zoloft 100mg daily ESRD (end stage renal disease) on dialysis ([facility]) Continue with dialysis three days weekly PLAN: Continue present medication(s):as ordered. Intermediate Home Treatment Given: as above Electronically signed [...] 2022 01/17/2022, 07/23/2021, 01/02/2021, Additional history exists TSH 08/11/2023 08/10/2022, 05/15, 08/21/2020, Additional history exists Influenza Vaccine (FLU shot) [...] this encounter Visit Diagnoses Diagnosis Arthritis of left shoulder region- Primary Unspecified arthropathy, shoulder region Anemia in end-stage renal disease (HCC) Anemia in chronic kidney disease 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HCC) ESRD (end stage renal disease) on dialysis (HCC) End stage renal disease documented in this encounter Advance Directives Documents on File Type Date Recorded Patient Appeals Assistant Expl anation Power of Video Machines Mechanic 12/16/2018 10:33 AM Nate r of Video Machines Mechanic * Full Code (Latest Code Status on [...] Agents on File Name Relationship Healthcare Agent [facility] Wesley E Sonya Spouse Health Care Agent Care Teams Care Provider Relationship Specialty Start Date End Date Bella Power MD [address] [place] [address] ROD Gallagher [phone] PCP - General Family Medicine 04/02/19 documented as of this encounter
--- OUTSIDE RECORDS SUMMARY | 2023-10-27 21:09 | External Medical Summary | Summary of Care ---
Author Name Unknown Organization [facility] Address [address] [place] [address] Phone [phone] Care Team Providers Care Fleet Dispatch Manager Name Role Phone Bella Power MD Primary Care Prov ider Reason for Visit * Reason Onset Date Comments Retirement Visit 09/16/2023 Regulatory Encounter Details Date Type Department Care Team (Latest Contact Info) Description 09/16/2023 9:00 AM EDT Retirement Visit [facility] [address] [place] [address] Nae Rodriges PA-C [address] [place] [address] ESRD (end stage renal disease) on dialysis ([facility])*; Diabetes mellitus with ESRD (end-stage renal disease) ([facility]); 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[facility]); COPD, group B, by GOLD 2017 classification ([facility]); Hypothyroidism due to acquired atrophy of thyroid; 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 factor ([facility]) Allergies No known active allergiesdocumented as of this encounter (statuses as of 09/16/2023) Medications Medication Sig Dispensed Refills Start Date [...] , group B, by GOLD 2017 classification ([facility]) Inhale via nebulizer. Use as directed. 1 Each 1 11/27/2018 Active DIURETIC TITRATION PLANIndications:Derrick Boat Runner sandro heart failure with preserved ejection fraction [...] ndications:COPD, group B, by GOLD 2017 classification ([facility] [...] WRAP) 30 g 11 11/09/2022 Active Nystatin [id number] UNIT/GM External Powder (Nystop) Apply topically to [...] as of this encounter (statuses as of 09/16/2023) Active Problems Problem Noted Date Diagnosed Date [...] as of this encounter (statuses as of 09/16/2023) Resolved Problems Problem Noted Date Diagnosed Date [...] as of this encounter (statuses as of 09/16/2023) Immunizations Name Administration Dates Next Due COVID-19 mRNA, LNP-s, No Pre serve, 2-Dose Series ([employer]) 01/02/2021,06/21/2020,05/24/2020 COVID-19, mRNA, LNP-s, PF, B ooster, [...] Progress Notes * Nae Rodriges PA-C - 09/16/2023 2:12 PM EDT REGULATORY VISIT TRANSITION EVENT: Type: Regulatory visit Date: September 15 Code Status: Full Code Name: Kami Hassan Date of : 1945 This note pertains to care provided at [facility]. Please see facility medical record for original note. This note is not to be edited or addended in [employer]. Editing or addending needs to occur in the facilities medical record. S: Kami Hassan seen today as part of a regulatory visit. Has history of : 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 factor ([facility]) Primary parkinsonism ([facility]) History of non-ST elevation myocardial infarction (NSTEMI) Venous stasis dermatitis of both lower extremities COPD, group B, by GOLD 2017 classification ([facility]) Chronic heart failure with preserved ejection fraction (HCC) Iron deficiency anemia due to chronic blood loss Diabetes mellitus with ESRD (end-stage renal disease) ([facility]) Personal history of fall History of CVA (cerebrovascular accident) AVF (arteriovenous fistula) ([facility]) 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[facility]) Palliative care encounter Acquired hypothyroidism ESRD (end stage renal disease) on dialysis ([facility]) 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 ([facility]) Morbid (severe) obesity due to excess calories ([facility]) Full code status History of colon polyps Past Medical History: Diagnosis Date (HFpEF) heart failure with preserved ejection fraction (HCC) Acute on chronic diastolic (congestive) heart failure ([facility]) 03/04/2020 [facility] Allergic rhinitis 02/15/2000 acute BMI 38.0-38.9,adult 08/28/2009 Chronic Sinusitis Unspecified Controlled substance agreement signed 11/25/2016 COVID-19 10/23/2021 Cystitis 05/23/2022 admitted [facility] home on cefuroxime Dyslipidemia, goal LDL below 100 Esophagitis determined by biopsy 04/19/2022 LA grade B esophagitis, inflammation gastric antrum, body and duodenum AYSHA (generalized anxiety disorder) Hearing loss, sensorineural 01/2005 History of non-ST elevation myocardial infarction (NSTEMI) 08/24/2018 HTN (hypertension) Meniere's disease Multiple falls 04/20/2019 History of falls on the pl NSTEMI (non-ST elevated myocardial infarction) ([facility]) 09/03/2018 Parkinson disease ([facility]) Rectal bleeding Restless leg syndrome 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 factor ([facility]) 07/18/2016 SDH (subdural hematoma) ([facility]) 04/20/2019 acute Serrated polyp of colon 09/20/2022 7 mm descending colon Sleep apnea Tinnitus 01/2005 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 Del Real CARPAL TUNNEL SURGERY Bilateral COLONOSCOPY, DIAGNOSTIC (RECTUM) 11/27/2015 normal, repeat 10 yrs/COLONOSCOPY FLEXIBLE PROXIMAL DIAGNOSTIC performed by Garrett Chang MD at ENDOSCOPY [facility] COLONOSCOPY, DIAGNOSTIC (RECTUM) 09/20/2022 serrated polyp, fair prep / [facility] EGD, FLEXIBLE, DIAGNOSTIC 04/19/2022 esophagitis, repeat 8-12 wks / [facility] EGD, FLEXIBLE, DIAGNOSTIC 06/26/2022 normal, retained food / [facility] EGD, FLEXIBLE, DIAGNOSTIC N/A 01/24/2023 normal/EGD/[facility] EXPLORATION OF MAXILLARY SINUS 03/17/1995 Sinus Surgery HYSTEROSCOPY,DIAGNOSTIC 2022 atrophic endometrium, endometrial polyp INJECTION LUMBAR/SACRAL 07/31/2015 INJECTION SPINE LUMBAR OR SACRAL performed by Quincy Prado, DO at OR [facility] INJECTION LUMBAR/SACRAL 08/15/2015 INJECTION SPINE LUMBAR OR SACRAL performed by Quincy Prado DO at OR [facility] INSER MARLI CAT,W/O PUMP;5YR/OLD N/A 11/04/2019 INSERT TUNNELED CENTRAL VENOUS CATHETER AGE 5 OR OLDER performed by Ortega Montez DO at OR [facility] INSER MARLI CAT,W/O PUMP;5YR/OLD Right 03/09/2023 INSERT TUNNELED CENTRAL VENOUS CATHETER AGE 5 OR OLDER performed by Fred Brown MD at OR [facility] INTRO CATH DIALYSIS CIRCUIT W/TRANSLUM BALLOON ANGIOPLASTY Right 03/09/2023 AV FISTULOGRAM & PERIPHERAL ANGIOPLASTY performed by Fred Brown MD at OR [facility] LIGATE/CUT OVIDUCT(S) MISCELLANEOUS ORDER ([facility] ONLY) Bilateral Heel surgery MISCELLANEOUS ORDER ([facility] ONLY) Right 3rd toe nerve decompression, Dr. 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 (Adult - for ages 18 years and over): Not on file Housing Stability: Low Risk (03/09/2023) Housing Stability Do you currently live in a longterm or have no steady place to sleep [...] indicates: No Known Allergies She is now not having any current problems.. pt was seen last month for flare of DJD left shoulder treated with topical Icy Hot and compresses with good relief. Is not having pain issues. Is not having behavioral problems. Undergoes dialysis three days weekly. Labs done at dialysis center. CBC Results: [...] POTASSIUM-OUTSIDE LAB 3.2 (A) 02/11/2020 12:00 AM Hemoglobin AIC Results: Lab Results Component Value Date/Time HEMOGLOBIN A1C - [facility] 4.9 03/09/2023 06:04 AM HEMOGLOBIN A1C - [facility] 5.3 05/31/2021 03:04 PM HEMOGLOBIN A1C - [facility] 5.2 08/21/2020 01:14 PM HEMOGLOBIN A1C - [facility] 5.1 03/23/2019 04:45 PM HEMOGLOBIN A1C - [facility] 4.9 05/01/2018 02:07 PM HEMOGLOBIN A1C - [facility] 5.3 10/13/2017 01:44 PM AST Results: Lab Results Component Value Date/Time AST 20 06/24/1996 04:55 PM AST - [facility] 23 07/11/2023 05:57 AM AST - [facility] 21 02/24/2023 01:13 PM AST - [facility] 31 08/10/2022 01:48 PM AST - [facility] 13 10/05/2019 11:14 AM AST - [facility] 28 04/20/2019 06:53 PM AST - [facility] 23 08/01/2018 02:00 PM ALT Results: Lab Results Component Value Date/Time ALT - [facility] 7 (L) 07/11/2023 05:57 AM ALT - [facility] <5 (L) 02/24/2023 01:13 PM ALT - [facility] 21 08/10/2022 01:48 PM ALT - [facility] 6 (L) 10/05/2019 11:14 AM ALT - [facility] 12 08/01/2018 02:00 PM ALT - [facility] 17 05/01/2018 02:07 PM Lipid Panel Results: Results for orders placed or performed in visit on 10/04/22 LIPID PANEL WITH DIRECT LDL IF TG IS HIGH Result Value Ref Range Triglycerides 135 <=174 mg/dL Cholesterol 135 <200 mg/dL HDL Cholesterol 63 >49 mg/dL Non-HDL Cholesterol 72 <=159 mg/dL LDL Cholesterol 45 <=129 mg/dL VITAMIN D 25 OH D2 Date Value [...] staff CONSTITUTIONAL: No change in weight, No change in weakness, No change in fatigue, and No fevers, sweats, or chills EARS: No ear pain, No drainage, No tinnitus or vertigo, and No recent change in hearing NOSE: No history of frequent colds or sinusitis, No nasal stuffiness, No history of Hay Fever, and No significant epistaxis MOUTH: No bleeding gums or No sore throat PULMONARY: No cough, [...] bloating or early satiety, and No dysphagia SKIN/INTEGUMENTARY: No edema, No rash, and No itching PSYCHIATRIC: No depression, No anxiety, No psychosis, and + dementia ENDOCRINE: No heat intolerance, No cold intolerance, No thyroid trouble, and No excessive thirst orurination O: I reviewed the most recent facilities vitals. General: alert, healthy, and no distress Eye Exam: PERRLA, extraocular movements intact, conjunctiva are pink and non- injected, sclera clear Ears: External ears normal, Canals clear, TM's [...] Abdomen: abdomen soft, non-tender, normal bowel sounds, no masses or organomegaly, and no rebound or guarding Extremities: no edema, no skin discoloration, no clubbing, no cyanosis A: ESRD (end stage renal disease) on dialysis (HCC) (Primary) Continue with dialysis three days weekly and labs per dialysis center 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) Check A1C 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[facility]) Stable mood and mentation PD stable Continue Sinemet as directed COPD, group B, by GOLD 2017 classification ([facility]) Stble breathing Continue Breo ellipta daily Hypothyroidism due to acquired atrophy of thyroid Therapeutic Continue Levoxyl as directed 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 factor ([facility]) Stable No significant joint pain or symptoms P: Medications reviewed. Please refer to MAR in the facility's medical record for the most up-to-date medication list. Continue present medication(s): Reviewed shelter record for: vital signs, weight, bowel, and bladder function, and ADLs. Labs reviewed Continue current treatment plan as ordered Continue to follow up as needed and as scheduled Assisted Home Treatment Given: Lab Draw Lipid panel, TSH, A1C documented in this encounter Plan of Treatment Scheduled Procedures Name Priority Associated Diagnoses Date/Ti me COLONOSCOPY FLEXIBLE PROXIMA L DIAGNOSTIC Recall Encounter for screening colonoscopy Health Maintenance Due Date Last Done Comments Zoster Vaccines (2 of 3) 12/18/2011 10/23/2011 Depression Screening 01/22/2020 01/21/2019 COVID-19 Vaccine (2022-2 4 season) 2022 01/17/2022, 07/23/2021, 01/02/2021, Additional history exists Influenza Vaccine (FLU shot) (#1) 2023 12/29/2021, 12/04/2021, 05/31/2021, Additional history exists [...] group B, by GOLD 2017 classification (HCC) Hypothyroidism due to acquired atrophy of thyroid 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 factor (HCC) documented in this encounter Advance Directives Documents on File Type Date Recorded Patient Occupational Therapy Instructor Expl anation Power of Manager Digital Ad Operations 12/16/2018 10:33 AM Nate r of Manager Digital Ad Operations * Full Code (Latest Code Status on [...] Relationship Healthcare Agent Relationshi p Communication Wesley Abrahamler Spouse Health Care Agent Care Teams Fleet Dispatch Manager Relationship Specialty Start Date End Date Bella Power MD [address] [place] [address] ROD Gallagher [phone] PCP - General Family Medicine 04/02/19 documented as of this encounter
--- OUTSIDE RECORDS SUMMARY | 2023-10-27 21:09 | External Medical Summary | Summary of Care ---
Author Name Unknown Organization [facility] Address [address] [place] [address] Phone [phone] Care Team Providers Care Teletypewriter Installer Name Role Phone Bella Power MD Primary Care Prov ider Reason for Visit * Reason Onset Date Comments Custodial Visit 10/14/2023 Encounter Details Date Type Department Care Team (Latest Contact Info) Description 10/14/2023 9:00 AM EDT Custodial Visit [facility] [address] [place] [address] Nae Rodriges PA-C [address] [place], [place] [id number] Bruise*; On aspirin at home; 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[facility]); ESRD (end stage renal disease) on dialysis ([facility]); Vasovagal episode Allergies No known active allergiesdocumented as of this encounter (statuses as of 10/14/2023) Medications Medication Sig Dispensed Refills Start Date [...] 2017 classification ([facility]) Inhale via nebulizer. Use as directed. 1 Each 1 11/27/2018 Active DIURETIC TITRATION PLANIndications:Teacher Vocal sandro heart failure with preserved ejection fraction [...] WRAP) 30 g 11 11/09/2022 Active Nystatin 506143 UNIT/GM External Powder (Nystop) Apply topically to [...] as of this encounter (statuses as of 10/14/2023) Active Problems Problem Noted Date Diagnosed Date [...] as of this encounter (statuses as of 10/14/2023) Resolved Problems Problem Noted Date Diagnosed Date [...] as of this encounter (statuses as of 10/14/2023) Immunizations Name Administration Dates Next Due COVID-19 mRNA, LNP-s, No Pre serve, 2-Dose Series (Oxyntix) 01/02/2021,06/21/2020,05/24/2020 COVID-19, mRNA, LNP-s, PF, B ooster, [...] as of this encounter Visit Diagnoses Diagnosis Bruise- Primary Contusion of unspecified site On aspirin at home 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HCC) ESRD (end stage renal disease) on dialysis (HCC) End stage renal disease Vasovagal episode Syncope and collapse documented in this encounter Advance Directives Documents on File Type Date Recorded Patient Manager Managing Expl anation Power of Blower And Compressor Assembler 12/16/2018 10:33 AM Nate r of Blower And Compressor Assembler * Full Code (Latest Code Status on [...] Hassan Spouse Health Care Agent Care Teams Teletypewriter Installer Relationship Specialty Start Date End Date Bella Power MD [address] [place] [address] [place] [phone] PCP - General Family Medicine 04/02/19 documented as of this encounter
--- OUTSIDE RECORDS SUMMARY | 2023-10-27 21:09 | External Medical Summary | Continuity Of Care Document ---
Author Name Unknown Address [address] [place] [address] Organization [facility] ( ) Care Team Providers Care Control Cabinet Assembler Name Role Phone Howie Gilbert Primary Care Provider [phone] Problems Code Description Start Date End Date Status J96.02 Acute respiratory failure with hypercapnia 05/15 Active G93.41 Metabolic encephalopathy 05/27/2023 Active I95.9 Hypotension, unspecified 05/27/2023 Active R00.1 Bradycardia, unspecified 05/27/2023 Active N18.6 End stage renal disease 05/27/2023 A ctive E11.9 Type 2 diabetes mellitus without complications 05/27/2023 Active D64.9 Anemia, unspecified 05/27/2023 Activ e G20.C Parkinsonism, unspecified 05/27/2023 Active E03.9 Hypothyroidism, unspecified 05/27/2023 00 Active N18.6 End stage renal disease 03/18/2023 A ctive I77.0 Arteriovenous fistula, acquired 03/18/2023 Active Z49.01 Encounter for fittin g and adjustment of extracorporeal dialysis catheter 03/18/2023 Active I50.42 Chronic combined sys tolic (congestive) and diastolic (congestive) heart failure 03/18/2023 Act lucho I11.0 Hypertensive heart disease with heart failure 0 03/18/2023 Active E66.01 Morbid (severe) obesity due to excess calories 03/18/2023 Active E78.5 Hyperlipidemia, unspecified 03/18/2023 00 Active J44.9 Chronic obstructive pulmonary disease, unspecified 03/18/2023 Active I63.9 Cerebral infarction, unspecified 03/18/2023 Active H91.90 Unspecified hearing loss, unspecified ear 03/18 Active I10. Essential (primary) hypertension 03/18/2023 Active I21.4 Non-ST elevation (NSTEMI) myocardial infarction 03/18/2023 Active M06.9 Rheumatoid arthritis, unspecified 03/18/2023 Active M62.81 Muscle weakness (generalized) 03/18/2023 Active J96.02 Acute respiratory failure with hypercapnia 05/15 Active M62.81 Muscle weakness (generalized) 05/28/2023 Active R53.1 Weakness 05/28/2023 Active VITAL SIGNS Date Time Diastolic blood pressure Systolic blood pressure Body height Body weight Temperature SpO2 Blood Sugar Pulse Respirations 84288 604 44122 7 215.00 NI 9[address]25 604 99668 4 54.00 mm[Hg] - Sitting 115.00 mm[Hg] - Sitting 99.10 Oral 60.00/ min 67266 609 64684 0 77.00 mm[Hg] - Sitting 163.00 mm[Hg] - Sitting 97.10 Oral 92.00 % 76.00/ min 18.00/min 25995 612 41598 6 220.00 NI [address] 619 22221 0 220.00 NI Immunizations Vaccine Date Status COVID-19 05/24/2020 Completed COVID-19 06/21/2020 Completed COVID-19 01/02/2021 Completed COVID-19 07/23/2021 Completed COVID-19 07/24/2021 Completed COVID-19 01/17/2022 Completed Influenza 01/01/2023 Completed (PCV13)Pneumococcal 10/28/2014 Completed (PPSV23)Pneumococcal 03/22/2016 Completed Shingles 10/23/2011 Completed TDaP 06/27/2009 Completed
--- OUTSIDE RECORDS SUMMARY | 2023-10-27 21:09 | External Medical Summary | Summary of Care ---
Author Name Unknown Organization [facility] Address [address] [facility] [place] [address] Phone [phone] Care Team Providers Care Resource Management Specialist Name Role Phone Bella Power MD Primary Care Prov ider Encounter Details Date Type Department Care Team (Late st Contact Info) Description 09/21/2023 Orders Only Lab Mobile Phlebotomy [facility] [address] [place] [address] Howie Gilbert MD [address] [place] [address] [place] [phone] DM (diabetes mellitus) ([facility])* Allergies No known active allergiesdocumented as of this encounter (statuses as of 09/21/2023) Medications Medication Sig Dispensed Refills Start Date [...] 1 Each 1 11/27/2018 Active DIURETIC TITRATION PLANIndications:Student Loan Counselor sandro heart failure with preserved ejection fraction [...] WRAP) 30 g 11 11/09/2022 Active Nystatin 151526 UNIT/GM External Powder (Nystop) Apply topically to [...] as of this encounter (statuses as of 09/21/2023) Active Problems Problem Noted Date Diagnosed Date [...] as of this encounter (statuses as of 09/21/2023) Resolved Problems Problem Noted Date Diagnosed Date [...] as of this encounter (statuses as of 09/21/2023) Immunizations Name Administration Dates Next Due COVID-19 mRNA, LNP-s, No Pre serve, 2-Dose Series ([employer]) 01/02/2021,06/21/2020,05/24/2020 COVID-19, mRNA, LNP-s, PF, B ooster, [...] Care Team (Late st Contact Info) Description 09/22/2023 5:30 AM EDT Laboratory Lab Mobile Phlebotomy [facility] [address] [place] [address] [place] [address] Scheduled Orders Name Type Priority Associated Diagnoses Orde r Schedule HEMOGLOBIN A1C Lab Routine DM (diabetes mellitus) ([facility]) Expected: 09/22/2023, Expires: 09/20/2024 TSH WITH FREE T4 IF INDICATED Lab Routine DM (diabetes mellitus) ([facility]) Expected: 09/22/2023, Expires: 09/20/2024 LIPID PANEL WITHOUT DIRECT LDL Lab Routine DM (diabetes mellitus) ([facility]) Expected: 09/22/2023, Expires: 09/20/2024 Scheduled Procedures Name Priority Associated Diagnoses Date/Ti [...] as of this encounter Visit Diagnoses Diagnosis DM (diabetes mellitus) (HCC)- Primary Type II or unspecified type diabetes mellitus without mention of complication, not stated as uncontrolled documented in this encounter Advance Directives Documents on File Type Date Recorded Patient Second Butler Expl anation Power of Bird Trapper 12/16/2018 10:33 AM Nate r of Bird Trapper * Full Code (Latest Code Status on [...] Hassan Spouse Health Care Agent Care Teams Resource Management Specialist Relationship Specialty Start Date End Date Bella Power MD [address] [place] [address] [place] [id number] PCP - General Family Medicine 04/02/19 documented as of this encounter
--- OUTSIDE RECORDS SUMMARY | 2023-10-27 21:09 | External Medical Summary | Summary of Care ---
Author Name Unknown Organization [facility] Address [address] [place] [address] Phone [phone] Care Team Providers Care Watch Inspector Final Movement Name Role Phone Bella Power MD Primary Care Prov ider Reason for Visit * Reason Onset Date Comments Skilled Nursing Visit 10/07/2023 Encounter Details Date Type Department Care Team (Latest Contact Info) Description 10/07/2023 9:30 AM EDT Skilled Nursing Visit [facility] [address] [place] [address] Nae Rodriges PA-C [address] [place] [address] Unresponsive episode*; Vasovagal episode; Lethargy; ESRD (end stage renal disease) on dialysis ([facility]); 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[facility]) Allergies No known active allergiesdocumented as of this encounter (statuses as of 10/07/2023) Medications Medication Sig Dispensed Refills Start Date [...] , group B, by GOLD 2017 classification ([facility]) Inhale via nebulizer. Use as directed. 1 Each 1 11/27/2018 Active DIURETIC TITRATION PLANIndications:Gas Meter Repairer sandro heart failure with preserved ejection [...] WRAP) 30 g 11 11/09/2022 Active Nystatin 350386 UNIT/GM External Powder (Nystop) Apply topically to [...] as of this encounter (statuses as of 10/07/2023) Active Problems Problem Noted Date Diagnosed Date [...] as of this encounter (statuses as of 10/07/2023) Resolved Problems Problem Noted Date Diagnosed Date [...] as of this encounter (statuses as of 10/07/2023) Immunizations Name Administration Dates Next Due COVID-19 mRNA, LNP-s, No Pre serve, 2-Dose Series ([facility]) 01/02/2021,06/21/2020,05/24/2020 COVID-19, mRNA, LNP-s, PF, B ooster, [...] Unresponsive episode- Primary Other alteration of consciousness Vasovagal episode Syncope and collapse Lethargy Other malaise and fatigue ESRD (end stage renal disease) on dialysis (HCC) End stage renal disease 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HCC) documented in this encounter Advance Directives Documents on File Type Date Recorded Patient Vehicle Service Attendant Expl anation Power of Rug Cutter 12/16/2018 10:33 AM Nate r of Rug Cutter * Full Code (Latest Code Status on [...] Hassan Spouse Health Care Agent Care Teams Watch Inspector Final Movement Relationship Specialty Start Date End Date Bella Poewr MD [address] [place] [address] [place] [phone] PCP - General Family Medicine 04/02/19 documented as of this encounter
--- OUTSIDE RECORDS SUMMARY | 2023-10-27 21:09 | External Medical Summary | Continuity Of Care Document ---
Author Name Unknown Address [address] [place] [address] Organization [facility] ( ) Care Team Providers Care Operations Developer Name Role Phone Howie Gilbert Primary Care Provider [phone] Problems Code Description Start Date End Date [...] weight Temperature SpO2 Blood Sugar Pulse Respirations 45151 524 77099 5 222.00 [place] [address] 604 36082 7 215.00 NI [address]001 604 11434 4 54.00 mm[Hg] - Sitting 115.00 mm[Hg] - Sitting 99.10 Oral 60.00/ min 45542 609 62587 0 77.00 mm[Hg] - Sitting 163.00 mm[Hg] - Sitting 97.10 Oral 92.00 % 76.00/ min 18.00/min 04326 612 40872 6 220.00 NI [address] 619 34585 0 220.00 NI Immunizations Vaccine Date Status COVID-19 05/24/2020 Completed COVID-19 06/21/2020 Completed COVID-19 01/02/2021 Completed COVID-19 07/23/2021 Completed COVID-19 07/24/2021 Completed COVID-19 01/17/2022 Completed Influenza 01/01/2023 Completed (PCV13)Pneumococcal 10/28/2014 Completed (PPSV23)Pneumococcal 03/22/2016 Completed Shingles 10/23/2011 Completed TDaP 06/27/2009 Completed
--- OUTSIDE RECORDS SUMMARY | 2023-10-27 21:09 | External Medical Summary ---
Author Name Unknown Address Unknown Organization K01[place] [place] [address] [place] [address] Laboratory Report Ordering Provider Test Date Status SIRISHA PRESCOTT 09/22/2023 05:43:00 Final Observation Date Value Abnormality Reference (Units ) Status HbA1C 09/22/2023 05:43:00 5.4 4.0-5.6 (% ) Final The use of HbA1c to monitor glycemic status is based on normal hemoglobin and HbA composition. This test should not be used in patients with abnormal hemoglobin that affects the half life of the red blood cell or the in vivo glycation rates. Glucose, estimated average 09/22/2023 05:43:00 108 <126 (mg/dL) Final Performing Location [facility] [place] [address] [facility] [address]
--- OUTSIDE RECORDS SUMMARY | 2023-10-27 21:09 | External Medical Summary ---
Author Name Unknown Address Unknown Organization K01[place] [place] [address] [place] [address] [place] [address] Laboratory Report Ordering Provider Test Date Status SIRISHA PRESCOTT 09/22/2023 05:43:00 Final Observation Date Value Abnormality Reference (Units ) Status TSH 09/22/2023 05:43:00 2.54 0.27-4.20 (uIU/mL) Final Performing Location LAB[facility] - [address] [place], [place] [address]
--- OUTSIDE RECORDS SUMMARY | 2023-10-27 21:10 | External Medical Summary | Summary of Care ---
Author Name Unknown Organization [facility] Address [address] [facility] [place] [address] Phone [phone] Care Team Providers Care Thermodynamicist Name Role Phone Bella Power MD Primary Care Prov ider Reason for Visit * Reason Onset Date Comments Medication Refill 08/13/2023 Encounter Details Date Type Department Care Team (Late st Contact Info) Description 08/13/2023 Telephone Family Medicine [address] [id number] Howie Gilbert MD [address] [place] [address] [place] [address] Medication Refill Allergies No known active allergiesdocumented as of this encounter (statuses as of 08/13/2023) Medications Medication Sig Dispensed Refills Start Date End Date Status ONETOUCH DELICA LANCETS 33G MISC Up to 4 times daily 100 Each 6 11/24/2014 Active Glucose Blood (ONETOUCH ULTRA BLUE) STRP Use as directed 4 times a day as needed (Diabetes). Use up to four times a day as directed 100 Strip 11 02/03/2018 Active Nebulizers (NEBULIZER COMPRESSOR) MISCIndications:FRAME TABLE OPERATOR HELPER D, group B, by GOLD 2017 [...] WRAP) 30 g 11 11/09/2022 Active Nystatin 493119 UNIT/GM External Powder (Nystop) Apply topically to affected area 2 times a day. 60 g 5 11/09/2022 Active Pantoprazole Sodium 20 MG Oral Tablet Delayed Release (Protonix) Take 1 Tablet by mouth in the morning and 1 Tablet in the evening. 180 Tablet 1 11/27/2022 Active CPAP every night at bedtime. Active Coloplast PasteIndications:He morrhoids, external without complications [...] buttocks Active Pregabalin 100 MG Oral Capsule (Lyrica)Indications :Primary parkinsonism (HCC) Take 1 capsule by mouth twice daily. May take 1 extra capsule after dialysis 3 days a week 72 Capsule 5 08/13/2023 Active Pregabalin 100 MG Oral Capsule (Lyrica)Indications :Primary parkinsonism (HCC) Take 1 capsule by mouth twice daily. May take 1 extra capsule after dialysis 3 days a week 72 Capsule 5 03/19/2023 Discontinu ed(Refill) documented as of this encounter (statuses as of 08/13/2023) Active Problems Problem Noted Date Diagnosed Date [...] as of this encounter (statuses as of 08/13/2023) Resolved Problems Problem Noted Date Diagnosed Date [...] as of this encounter (statuses as of 08/13/2023) Immunizations Name Administration Dates Next Due COVID-19 [...] encounter Miscellaneous Notes * Telephone Encounter - Howie Gilbert MD - 08/13/2023 1:59 PM EDT New Rx for Lyrica needed. Sent to Health direct documented in this encounter Plan of Treatment [...] Documents on File Type Date Recorded Patient Fiscal Economist Expl anation Power of Desk Pens Assembler 12/16/2018 10:33 AM Nate r of Desk Pens Assembler * Full Code (Latest Code Status [...] Hassan Spouse Health Care Agent Care Teams Thermodynamicist Relationship Specialty Start Date End Date Bella Power MD [address] [place] [address] [place] [phone] PCP - General Family Medicine 04/02/19 documented as of this encounter
--- OUTSIDE RECORDS SUMMARY | 2023-10-27 21:10 | External Medical Summary | Summary of Care ---
Author Name Unknown Organization [facility] Address [address] [facility] [place] [address] Phone [phone] Care Team Providers Care Rivet Maker Name Role Phone Bella Power MD Primary Care Prov ider Encounter Details Date Type Department Care Team (Late st Contact Info) Description 07/11/2023 Orders Only Lab Mobile Phlebotomy [facility] [address] [place] [address] Howie Gilbert MD [address] [place] [address] [place] [phone] ESRD on dialysis ([facility])* Allergies No known active allergiesdocumented as of this encounter (statuses as of 07/11/2023) Medications Medication Sig Dispensed Refills Start Date [...] B, by GOLD 2017 classification ([facility]) Inhale via nebulizer. Use as directed. 1 Each 11/27/2018 Active DIURETIC TITRATION PLANIndications:Orthotic Assistant sandro heart failure with preserved ejection [...] B, by GOLD 2017 classification ([facility]) Inhale by mouth 1 Puff in the [...] WRAP) 30 g 11 11/09/2022 Active Nystatin 427456 UNIT/GM External Powder (Nystop) Apply topically to affected area 2 times a day. 60 g 5 11/09/2022 Active Pantoprazole Sodium 20 MG Oral Tablet Delayed Release (Protonix) Take 1 Tablet by mouth in the morning and 1 Tablet in the evening. 180 Tablet 1 11/27/2022 Active CPAP every night at bedtime. 0 [...] a week 72 Capsule 5 03/19/2023 Active Midodrine HCl 10 MG Oral Tablet (Proamatine) Take 1 Tablet by mouth in the morning and 1 Tablet at noon and 1 Tablet in the evening. 0 05/28/2023 Active Calmoseptine 0.44-20.6 % External Ointment (Menthol-Zinc Oxide) Apply 113 g topically to affected area as needed for Hemorrhoids. Apply to buttocks 0 Active documented as of this encounter (statuses as of 07/11/2023) Active Problems Problem Noted Date Diagnosed Date [...] as of this encounter (statuses as of 07/11/2023) Resolved Problems Problem Noted Date Diagnosed Date [...] as of this encounter (statuses as of 07/11/2023) Immunizations Name Administration Dates Next Due COVID-19 [...] Care Team (Late st Contact Info) Description 07/11/2023 5:10 AM EDT Laboratory Lab Mobile Phlebotomy [facility] [address] [place] [address] [place] [address] ESRD on dialysis (HCC) Scheduled Orders Name Type Priority Associated Diagnoses Orde r Schedule CBC WITH WBC DIFFERENTIAL Lab Routine ESRD on dialysis (HCC) Expected: 07/11/2023, Expires: 07/10/2024 COMPREHENSIVE METABOLIC PANEL Lab Routine ESRD on dialysis (HCC) Expected: 07/11/2023, Expires: 07/10/2024 Scheduled Procedures Name Priority Associated Diagnoses Date/Ti [...] of this encounter Visit Diagnoses Diagnosis ESRD on dialysis (HCC) End stage renal disease ESRD on dialysis (HCC)- Primary End stage renal disease documented in this encounter Advance Directives Documents on File Type Date Recorded Patient Minibus Driver Expl anation Power of Medical Assistant Float 12/16/2018 10:33 AM Nate r of Medical Assistant Float Latest Code Status on File Code Status [...] patient have Health Care Power of Medical Assistant Float? No Healthcare Agents on File Name Relationship Healthcare Agent Relationshi p Communication Wesley Hassan Spouse Health Care Agent Care Teams Rivet Maker Relationship Specialty Start Date End Date Bella Power MD [address] [place] [address] [place] [phone] PCP - General Family Medicine 04/02/19 documented as of this encounter
--- OUTSIDE RECORDS SUMMARY | 2023-10-27 21:10 | External Medical Summary | Summary of Care ---
Author Name Unknown Organization [facility] Address [address] [facility] [place] [address] Phone [phone] Care Team Providers Care Front Counter Clerk Name Role Phone Bella Power MD Primary Care Prov ider Encounter Details Date Type Department Care Team (Late st Contact Info) Description 08/07/2023 Population Health External Data Unspecified Department Allergies No known active allergiesdocumented as of this encounter (statuses as of 08/07/2023) Medications Medication Sig Dispensed Refills Start Date [...] 1 Each 1 11/27/2018 Active DIURETIC TITRATION PLANIndications:Director Inpatient Headache Program sandro heart failure with preserved ejection fraction [...] WRAP) 30 g 11 11/09/2022 Active Nystatin 279926 UNIT/GM External Powder (Nystop) Apply topically to [...] needed for Hemorrhoids. Apply to buttocks Active documented as of this encounter (statuses as of 08/07/2023) Active Problems Problem Noted Date Diagnosed Date [...] as of this encounter (statuses as of 08/07/2023) Resolved Problems Problem Noted Date Diagnosed Date [...] as of this encounter (statuses as of 08/07/2023) Immunizations Name Administration Dates Next Due COVID-19 mRNA, LNP-s, No Pre serve, 2-Dose Series ([employer]) 01/02/2021,06/21/2020,05/24/2020 COVID-19, mRNA, LNP-s, PF, B ooster, [...] Documents on File Type Date Recorded Patient Lithographic Photographer Expl anation Power of Golf Instructor 12/16/2018 10:33 AM Nate r of Golf Instructor * Full Code (Latest Code Status on [...] Hassan Spouse Health Care Agent Care Teams Front Counter Clerk Relationship Specialty Start Date End Date Bella Power MD [address] [place] [address] [place] [phone] PCP - General Family Medicine 04/02/19 documented as of this encounter
--- OUTSIDE RECORDS SUMMARY | 2023-10-27 21:10 | External Medical Summary | Summary of Care ---
Author Name Unknown Organization [facility] Address [address] [facility] [place] [address] Phone [phone] Care Team Providers Care Registrar Museum Name Role Phone Bella Power MD Primary Care Prov ider Reason for Visit * Reason Onset Date Comments [facility]: Screening 08/08/2023 Encounter Details Date Type Department Care Team (Late st Contact Info) Description 08/08/2023 Telephone [facility], [place] [address] [place] [address] Region, Nurse [facility] [address] [facility] [place] [address] [facility]: Screening Allergies No known active allergiesdocumented as of this encounter (statuses as of 08/08/2023) Medications Medication Sig Dispensed Refills Start Date [...] GOLD 2017 classification ([facility]) Inhale via nebulizer. Use as directed. 1 Each 11/27/2018 Active DIURETIC TITRATION PLANIndications:Change Advisor sandro heart failure with preserved ejection fraction [...] WRAP) 30 g 11 11/09/2022 Active Nystatin 735269 UNIT/GM External Powder (Nystop) Apply topically to [...] as of this encounter (statuses as of 08/08/2023) Active Problems Problem Noted Date Diagnosed Date [...] as of this encounter (statuses as of 08/08/2023) Resolved Problems Problem Noted Date Diagnosed Date [...] as of this encounter (statuses as of 08/08/2023) Immunizations Name Administration Dates Next Due COVID-19 mRNA, LNP-s, No Pre serve, 2-Dose Series ([employer]) 01/02/2021,06/21/2020,05/24/2020 COVID-19, mRNA, LNP-s, PF, B ooster, [...] Telephone Encounter - Justa Preciado LPN - 08/08/2023 9:05 AM EDT Kami Hassan was referred as a potential candidate for enrollment for [facility]. A review of this chart was completed and: Kami does not meet criteria for enrollment into [facility]. Referral Source: Monthly Proactive Eligibility List Criteria for Ineligibility: SNF Nursing Home Care Referring care team was notified via : [employer] communication Justa Preciado LPN [facility] 08/08/2023,9:05 AM documented in this encounter Plan of [...] Documents on File Type Date Recorded Patient Software Developer Manager Expl anation Power of L D Rn 12/16/2018 10:33 AM Nate r of L D Rn * Full Code (Latest Code Status on [...] Hassan Spouse Health Care Agent Care Teams Registrar Museum Relationship Specialty Start Date End Date Bella Power MD [address] [place] [address] [place] [phone] PCP - General Family Medicine 04/02/19 documented as of this encounter
--- OUTSIDE RECORDS SUMMARY | 2023-10-27 21:10 | External Medical Summary ---
Author Name Unknown Address Unknown Organization [facility] [address] [place] [address] Laboratory Report Ordering Provider Test Date Status SIRISHA PRESCOTT 07/11/2023 05:57:00 Final Observation Date Value Abnormality Reference (Units ) Status Nucleated erythrocytes/100 leukocytes [Ratio] in Blood by Automated count 07/11/2023 05:57:00 Final Performing Location [facility] [address] [place] [address]
--- OUTSIDE RECORDS SUMMARY | 2023-10-27 21:10 | External Medical Summary | Summary of Care ---
Author Name Unknown Organization [facility] Address [address] [facility] [place] [address] Phone [phone] Care Team Providers Care Military Exchange Wireless Manager Name Role Phone Bella Power MD Primary Care Prov ider Reason for Visit * Reason Onset Date Comments Long-Term Visit 08/05/2023 Encounter Details Date Type Department Care Team (Latest Contact Info) Description 08/05/2023 12:00 PM EDT Long-Term Visit [facility] [address] [place] [address] Nae Rodriges PA-C [address], [place] [phone] Wheezing*; Acute cough; 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[facility]); ESRD (end stage renal disease) on dialysis ([facility]) Allergies No known active allergiesdocumented as of this encounter (statuses as of 08/05/2023) Medications Medication Sig Dispensed Refills Start Date [...] by GOLD 2017 classification ([facility]) Inhale via nebulizer. Use as directed. 1 Each 11/27/2018 Active DIURETIC TITRATION PLANIndications:Senior Auditor sandro heart failure with preserved ejection fraction [...] by GOLD 2017 classification ([facility]) Inhale by mouth 1 Puff in the morning. 60 Each 08/22/2021 Active Auryxia 1 GM 210 MG(Fe) Oral Tablet TAKE 1 TABLET BY MOUTH THREE TIMES A DAY WITH MEALS. SWALLOW WHOLE, DO NOT CHEW OR CRUSH MEDICATION 05/11/2022 Active Nanci-Samuel Oral Tablet Take 1 Tablet by mouth in the morning. 05/16/2022 Active Docusate Sodium 100 MG Oral [...] WRAP) 30 g 11 11/09/2022 Active Nystatin 975535 UNIT/GM External Powder (Nystop) Apply topically to [...] as of this encounter (statuses as of 08/05/2023) Active Problems Problem Noted Date Diagnosed Date [...] as of this encounter (statuses as of 08/05/2023) Resolved Problems Problem Noted Date Diagnosed Date [...] as of this encounter (statuses as of 08/05/2023) Immunizations Name Administration Dates Next Due COVID-19 [...] as of this encounter Visit Diagnoses Diagnosis Wheezing- Primary Acute cough 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HCC) ESRD (end stage renal disease) on dialysis (HCC) End stage renal disease documented in this encounter Advance Directives Documents on File Type Date Recorded Patient Mixing Plant Dumper Expl anation Power of Associate Professor Of Geology 12/16/2018 10:33 AM Nate r of Associate Professor Of Geology * Full Code (Latest Code Status on [...] Hassan Spouse Health Care Agent Care Teams Military Exchange Wireless Manager Relationship Specialty Start Date End Date Bella Power MD [address] [place] [address] [place] [phone] PCP - General Family Medicine 04/02/19 documented as of this encounter
--- OUTSIDE RECORDS SUMMARY | 2023-10-27 21:10 | External Medical Summary | Summary of Care ---
Author Name Unknown Organization [facility] Address [address] [facility] [place] [address] Phone [phone] Care Team Providers Care Petroleum Production Engineer Name Role Phone Bella Power MD Primary Care Prov ider Reason for Visit * Reason Onset Date Comments Assisted Visit 08/06/2023 Encounter Details Date Type Department Care Team (Latest Contact Info) Description 08/06/2023 7:30 AM EDT Assisted Visit [facility] [address] [place] [address] Nae Rodriges PA-C [address] [place], [place] [phone] Viral URI with cough*; Anemia in end-stage renal disease ([facility]); 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[facility]) Allergies No known active allergiesdocumented as of this encounter (statuses as of 08/06/2023) Medications Medication Sig Dispensed Refills Start Date [...] directed. 1 Each 11/27/2018 Active DIURETIC TITRATION PLANIndications:Php Wordpress Developer sandro heart failure with preserved ejection [...] WRAP) 30 g 11 11/09/2022 Active Nystatin 220034 UNIT/GM External Powder (Nystop) Apply topically to [...] as of this encounter (statuses as of 08/06/2023) Active Problems Problem Noted Date Diagnosed Date [...] Diagnostic Review: Recent Labs Units 04/15/22 1353 03/29/22 0000 EGFR-OUTSIDE LAB ML/MIN -- 11.8 HGB [...] as of this encounter (statuses as of 08/06/2023) Resolved Problems Problem Noted Date Diagnosed Date [...] as of this encounter (statuses as of 08/06/2023) Immunizations Name Administration Dates Next Due COVID-19 [...] Progress Notes * Nae Rodriges PA-C - 08/06/2023 2:45 PM EDT Name: Kami Hassan Date of :1945 TRANSITION EVENT: Type: Non-applicable Date: August 05 Code Status: Full Code This note pertains to care provided at [facility]. Please see facility medical record for original note. This note is not to be edited or addended in [employer]. Editing or addending needs to occur in the facilities medical record. Subjective: Kami Hassan is a 77 year old female. Patient being seen for recheck visit Chief Complaint Patient presents with Assisted Visit HPI: pt was assessed yesterday for productive cough, wheezing and some dyspnea. No chills or fever.No nausea or vomiting vital signs stable. Begun on Duonebs prn and siltussin prn. Chest xray done in SNF showed NAD. Pt had Covid testing done and negative. Pt states she's feeling better but still coughing. No audible wheezing today. Had dialysis. Labs done at dialysis center. 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 factor ([facility]) Primary parkinsonism ([facility]) History of non-ST elevation myocardial infarction (NSTEMI) Venous stasis dermatitis of both lower extremities COPD, group B, by GOLD 2017 classification ([facility]) Chronic heart failure with preserved ejection fraction ([facility]) Iron deficiency anemia due to chronic blood loss Diabetes mellitus with ESRD (end-stage renal disease) ([facility]) Personal history of fall History of CVA (cerebrovascular accident) AVF (arteriovenous fistula) ([facility]) 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[facility]) Palliative care encounter Acquired hypothyroidism ESRD (end stage renal disease) on dialysis ([facility]) 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 ([facility]) Morbid (severe) obesity due to excess calories ([facility]) Full code status History of colon polyps Past Medical History: Diagnosis Date (HFpEF) heart failure with preserved ejection fraction ([facility]) Acute on chronic diastolic (congestive) heart failure ([facility]) 03/04/2020 [facility] Allergic rhinitis 02/15/2000 acute BMI 38.0-38.9,adult 08/28/2009 Chronic Sinusitis Unspecified Controlled substance agreement signed 11/25/2016 COVID-19 10/23/2021 Cystitis 05/23/2022 admitted [facility] home on cefuroxime Dyslipidemia, goal LDL [...] rheumatoid factor (HCC) 07/18/2016 SDH (subdural hematoma) ([facility]) 04/20/2019 acute Serrated polyp of colon 09/20/2022 7 mm descending colon Sleep apnea Tinnitus 01/2005 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 Del Real CARPAL TUNNEL SURGERY Bilateral COLONOSCOPY, DIAGNOSTIC (RECTUM) 11/27/2015 normal, repeat 10 yrs/COLONOSCOPY FLEXIBLE PROXIMAL DIAGNOSTIC performed by Garrett Chang MD at ENDOSCOPY [facility] COLONOSCOPY, DIAGNOSTIC (RECTUM) 09/20/2022 serrated polyp, fair prep / [facility] EGD, FLEXIBLE, DIAGNOSTIC 04/19/2022 esophagitis, repeat 8-12 wks / [facility] EGD, FLEXIBLE, DIAGNOSTIC 06/26/2022 normal, retained food / [facility] EXPLORATION OF MAXILLARY SINUS 03/17/1995 Sinus Surgery HYSTEROSCOPY,DIAGNOSTIC 2022 atrophic endometrium, endometrial polyp INJECTION LUMBAR/SACRAL 07/31/2015 INJECTION SPINE LUMBAR OR SACRAL performed by Quincy Prado DO at OR [facility] INJECTION LUMBAR/SACRAL 08/15/2015 INJECTION SPINE LUMBAR OR SACRAL performed by Quincy Prado DO at OR [facility] MARLI CAT,W/O PUMP;5YR/OLD N/A 11/04/2019 INSERT TUNNELED CENTRAL VENOUS CATHETER AGE 5 OR OLDER performed by Ortega Montez DO at OR [facility]ER MARLI CAT,W/O PUMP;5YR/OLD Right [...] 3rd toe nerve decompression, Dr. 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 Review of Systems:obtained from pt and staff Constitutional ROS: No change in weight, less weakness, less fatigue and No fevers, sweats, or chills Nose ROS: No nasal stuffiness and No significant epistaxis Mouth/Throat ROS: No thrush or No sore throat Neck ROS: No lumps or masses, No swollen glands, No recent swelling in thyroid area and No significant pain in neck Pulmonary ROS: see HPI Cardiovascular ROS: No chest pain, No shortness of breath, No edema, No palpitations and No syncope Gastrointestinal ROS: No abdominal pain, No change in bowel habits, No significant change in appetite, No nausea, vomiting, diarrhea, or constipation and No dysphagia Skin/Integumentary ROS: No rash and No itching Neurologic ROS: No headaches and No seizures Psychiatric ROS: No depression, No anxiety and No psychosis [+ dementia Sleep: No sleep disorders OBJECTIVE: PHYSICALEXAM: [...] normal, no rashes or significant lesions ASSESSMENT: Viral URI with cough (Primary) Covid negative Clinically improved Continue Duoneb prn and Siltussin prn Will follow Reviewed CXR Anemia in end-stage renal disease (HCC) Stable Continue with dialysis 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HCC) Stable mood and PD Continue carbidopa-levodopa 25/200 mg TID Continue Zoloft daily PLAN: Reviewed latest labs. and Continue present medication(s):as ordered. [facility] Treatment Given: as above Electronically signed [...] as of this encounter Visit Diagnoses Diagnosis Viral URI with cough- Primary Acute upper respiratory infections of unspecified site Anemia in end-stage renal disease (HCC) Anemia in chronic kidney disease 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HCC) documented in this encounter Advance Directives Documents on File Type Date Recorded Patient Program Support Clerk Expl anation Power of Clinical Research Nurse 12/16/2018 10:33 AM Nate r of Clinical Research Nurse * Full Code (Latest Code Status on [...] Sonya Spouse Health Care Agent Care Teams Petroleum Production Engineer Relationship Specialty Start Date End Date Bella Power MD [address] [place] [address] [place] [id number] PCP - General Family Medicine 04/02/19 documented as of this encounter
--- OUTSIDE RECORDS SUMMARY | 2023-10-27 21:10 | External Medical Summary | Continuity Of Care Document ---
Author Name Unknown Address [address] [place] [address] Organization [facility] ( ) Care Team Providers Care Textile Worker Name Role Phone Howie Gilbert Primary Care Provider [phone] Problems Code Description Start Date End Date [...] weight Temperature SpO2 Blood Sugar Pulse Respirations 57161 403 03158 6 74246 403 20963 9 221.00 [place] [address] 407 33819 0 71.00 mm[Hg] - Sitting 147.00 mm[Hg] - Sitting 76.00/ min 13735 410 19503 0 20890 417 17055 0 219.00 NI 98283 418 10446 5 64.00 mm[Hg] - Sitting 136.00 mm[Hg] - Sitting 97.90 Oral 90.00 % 56.00/ min 20.00/min 82712 424 02396 3 216.00 NI 03711 428 66569 0 56.00 mm[Hg] - Sitting 124.00 mm[Hg] - Sitting 91.00 % 57.00/ min 18.00/min 65076 501 96559 0 218.00 NI Immunizations Vaccine Date Status COVID-19 05/24/2020 Completed COVID-19 06/21/2020 Completed COVID-19 01/02/2021 Completed COVID-19 07/23/2021 Completed COVID-19 07/24/2021 Completed COVID-19 01/17/2022 Completed Influenza 01/01/2023 Completed (PCV13)Pneumococcal 10/28/2014 Completed (PPSV23)Pneumococcal 03/22/2016 Completed Shingles 10/23/2011 Completed TDaP 06/27/2009 Completed
--- OUTSIDE RECORDS SUMMARY | 2023-10-27 21:10 | External Medical Summary ---
Author Name Unknown Address Unknown Organization [facility] [address] [place] [address] Laboratory Report Ordering Provider Test Date Status SIRISHA PRESCOTT 07/11/2023 05:57:00 Final Observation Date Value Abnormality Reference (Units ) Status WBC, Total 07/11/2023 05:57:00 9.27 4.00-10.8 0 (K/uL) Final RBC 07/11/2023 05:57:00 4.04 3.85-5.15 (M/uL) Final Hemoglobin 07/11/2023 05:57:00 12.0 12.0-15.3 (g/dL) Final HCT 07/11/2023 05:57:00 38.0 36.0-45.2 (%) Final MCV 07/11/2023 05:57:00 94.1 81.5-97.5 (fL) Final MCH 07/11/2023 05:57:00 29.7 27.0-34.0 (pg) Final MCHC 07/11/2023 05:57:00 31.6 32.0-36.0 (g/dL) Final RDW 07/11/2023 05:57:00 18.4 11.5-15.5 (%) Final Platelets 07/11/2023 05:57:00 213 140-400 (K /uL) Final MPV 07/11/2023 05:57:00 11.3 6.6-11.1 ( fL) Final Performing Location [facility] [address] [place] [address]
--- OUTSIDE RECORDS SUMMARY | 2023-10-27 21:10 | External Medical Summary ---
Author Name Unknown Address Unknown Organization [facility] [address] [place] [address] Laboratory Report Ordering Provider Test Date Status SIRISHA PRESCOTT 07/11/2023 05:57:00 Final Observation Date Value Abnormality Reference (Units ) Status BUN 07/11/2023 05:57:00 43 Above high normal 6-20 (mg/dL) Final Creatinine 07/11/2023 05:57:00 6.5 Above high normal 0.5-1.0 (mg/dL) Final Glomerular filtration rate/1.73 sq M.predicted [Volume Rate/Area] in Serum, Plasma or Blood by Creatinine-based formula (CKD-EPI) 07/11/2023 05:57:00 6 Below low normal >=60 (mL/min) Final eGFR is calculated based on the CKD-EPI 2020 equation Sodium 07/11/2023 05:57:00 138 135-146 (m mol/L) Final Potassium 07/11/2023 05:57:00 4.9 3.5-5.1 (m mol/L) Final Cl 07/11/2023 05:57:00 94 Below low normal 98- 107 (mmol/L) Final CO2 07/11/2023 05:57:00 29 22-32 (mmo l/L) Final Anion gap 07/11/2023 05:57:00 15 7-15 (mmol /L) Final Glucose 07/11/2023 05:57:00 92 70-120 (mg /dL) Final Albumin 07/11/2023 05:57:00 4.0 3.8-5.0 (g /dL) Final AST (Aspartate aminotransferase) 07/11/2023 05:57:00 23 10-35 (U/L) Fin al Alk Phos 07/11/2023 05:57:00 106 35-130 (U/ L) Final Bilirubin, Total 07/11/2023 05:57:00 0.3 <=1 .2 (mg/dL) Final Calcium 07/11/2023 05:57:00 10.5 Above high normal 8. 4-10.2 (mg/dL) Final Protein 07/11/2023 05:57:00 7.5 6.0-8.3 (g /dL) Final ALT (Alanine aminotransferase) 07/11/2023 05:57:00 7 Below low normal 10-35 (U/L) Final Performing Location [facility] [address] [facility] [address]
--- OUTSIDE RECORDS SUMMARY | 2023-10-27 21:11 | External Medical Summary | Summary of Care ---
Author Name Unknown Organization [facility] Address [address] [facility] [place] [address] Phone [phone] Care Team Providers Care Light Technician Name Role Phone Bella Power MD Primary Care Prov ider Reason for Visit * Reason Onset Date Comments Complicated Acute Visit 07/10/2023 Encounter Details Date Type Department Care Team (Latest Contact Info) Description 07/10/2023 11:30 AM EDT [facility] Visit [facility] [address] [place] [address] Nae Rodriges PA-C [address] [place] [address] URI with cough and congestion*; Nausea without vomiting; Loose stools; Anemia in end-stage renal disease ([facility]); 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[facility]); ESRD (end stage renal disease) on dialysis ([facility]) Allergies No known active allergiesdocumented as of this encounter (statuses as of 07/10/2023) Medications Medication Sig Dispensed Refills Start Date [...] 1 Each 1 11/27/2018 Active DIURETIC TITRATION PLANIndications:Insurance Consultant sandro heart failure with preserved ejection fraction [...] WRAP) 30 g 11 11/09/2022 Active Nystatin 162813 UNIT/GM External Powder (Nystop) Apply topically to [...] as of this encounter (statuses as of 07/10/2023) Active Problems Problem Noted Date Diagnosed Date [...] as of this encounter (statuses as of 07/10/2023) Resolved Problems Problem Noted Date Diagnosed Date [...] as of this encounter (statuses as of 07/10/2023) Immunizations Name Administration Dates Next Due COVID-19 [...] as of this encounter Visit Diagnoses Diagnosis URI with cough and congestion- Primary Nausea without vomiting Loose stools Abnormal feces Anemia in end-stage renal disease (HCC) Anemia in chronic kidney disease 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HCC) ESRD (end stage renal disease) on dialysis (HCC) End stage renal disease documented in this encounter Advance Directives Documents on File Type Date Recorded Patient Merchandising Coordinator Expl anation Power of Emergency Medical Technician/Driver 12/16/2018 10:33 AM Nate r of Emergency Medical Technician/Driver Latest Code Status on File Code Status [...] the patient have Health Care Power of Emergency Medical Technician/Driver? No Healthcare Agents on File Name Relationship Healthcare Agent Relationshi p Communication Wesley Lee Leighaurora Spouse Health Care Agent Care Teams Light Technician Relationship Specialty Start Date End Date Bella Power MD [address] [place] [address] [place] [id number] PCP - General Family Medicine 04/02/19 documented as of this encounter
--- OUTSIDE RECORDS SUMMARY | 2023-10-27 21:11 | External Medical Summary ---
Author Name Unknown Address Unknown Organization K01:[facility] - [address] [facility] [address] Laboratory Report Ordering Provider Test Date Status SIRISHA PRESCOTT 07/10/2023 13:30:22 Final Observation Date Value Abnormality Reference (Units ) Status SARS Coronavirus 2 07/10/2023 13:30:22 Negative N egative Final No SARS-CoV2 Coronavirus RNA detected by PCR (amplified probe).
This automated test was developed and its performance characteristics determined by [facility]. It has not been cleared or approved by the U.S. Food and Drug Administration (FDA). FDA does not require this test to go thru premarket FDA review. This test is used for clinical purposes. It should not be regarded as investigational or for research. This laboratory is certified under the Clinical Laboratory Improvement Amendments (CLIA) as qualified to perform high complexity clinical laboratory testing.

This test is a nucleic acid amplification test (NAAT), a reverse transcriptase polymerase chain reaction (RT-PCR) test, or a Centers for Disease Control-acceptable equivalent. The test is performed in a high complexity Clinical Laboratory Improvement Amendments-(CLIA) certified laboratory. The test is acceptable for SARS-CoV-2 diagnosis, surveillance, and travel within the [place] and to most countries. Please check with local testing authorities about requirements before travel.

The validation of bronchial specimens, tracheal aspirates, and sputum for this assay was developed and performance characteristics determined by [facility]. The validation of alternate specimen types has not been cleared or approved by the U.S. Food and Drug Administration (FDA). It has been determined that such clearance or approval is not necessary. Influenza virus A RNA [Prese nce] in Specimen by [facility] with probe detection 07/10/2023 13:30:22 Negative Negative Final No Influenza A RNA detected by PCR (amplified probe) Influenza virus B RNA [Prese nce] in Specimen by [facility] with probe detection 07/10/2023 13:30:22 Negative Negative Final No Influenza B RNA detected by PCR (amplified probe) Respiratory syncytial virus RNA [Identifier] in Specimen by [facility] with probe detection 07/10/2023 13:30:22 Negative Negative Final No Respiratory Syncytial Vir us RNA detected by PCR (amplified probe) Performing Location LABORATORY [address] [place]. [facility] [address]
--- OUTSIDE RECORDS SUMMARY | 2023-10-27 21:11 | External Medical Summary | Summary of Care ---
Author Name Unknown Organization [facility] Address [address] [facility] [place] [address] Phone [phone] Care Team Providers Care Retail Banking Manager Name Role Phone Bella Power MD Primary Care Prov ider Reason for Visit * Reason Onset Date Comments Complicated Acute Visit 07/10/2023 Encounter Details Date Type Department Care Team (Latest Contact Info) Description 07/10/2023 11:30 AM EDT Halfway Visit [facility] [address] [place] [address] Nae Rodriges PA-C [address] [place] [address] URI with cough and congestion*; Nausea without vomiting; Loose stools; Anemia in end-stage renal disease (FORMERLY REGIONAL [...] 1 Each 1 11/27/2018 Active DIURETIC TITRATION PLANIndications:C Software Engineer sandro heart failure with preserved ejection [...] WRAP) 30 g 11 11/09/2022 Active Nystatin 516284 UNIT/GM External Powder (Nystop) Apply topically to [...] on File Type Date Recorded Patient It Security Manager Expl anation Power of Sole Molding Machine Operator 12/16/2018 10:33 AM Nate r of Sole Molding Machine Operator Latest Code Status on File [...] the patient have Health Care Power of Sole Molding Machine Operator? No Healthcare Agents on File Name Relationship Healthcare Agent Relationshi p Communication Wesley Lee Leighaurora Spouse Health Care Agent Care Teams Retail Banking Manager Relationship Specialty Start Date End Date Bella Power MD [address] [place] [address] [place] [phone] PCP - General Family Medicine 04/02/19 documented as of this encounter
--- OUTSIDE RECORDS SUMMARY | 2023-10-27 21:11 | External Medical Summary | Summary of Care ---
Author Name Unknown Organization [facility] Address [address] [facility] [place] [address] Phone [phone] Care Team Providers Care Border Guard Name Role Phone Bella Power MD Primary Care Prov ider Reason for Visit * Reason Comments Outpatient Testing Encounter Details Date Type Department Care Team (Late st Contact Info) Description 07/10/2023 1:20 PM EDT Laboratory Laboratory [address] [place] [id number] , Specimen Drop Off [address] [place] [address] Exposure to COVID-19 virus Allergies No known active allergiesdocumented as of [...] Each 1 11/27/2018 Active DIURETIC TITRATION PLANIndications:Environmental Studies Professor sandro heart failure with preserved ejection fraction [...] WRAP) 30 g 11 11/09/2022 Active Nystatin 780842 UNIT/GM External Powder (Nystop) Apply topically to [...] as of this encounter Plan of Treatment Pending Results Name Type Priority Associated Diagnoses Date /Time INFLUENZA A/B RSV SARS-COV2,PCR Lab Routine Exposure to COVID-19 virus 07/10/2023 1:30 PM EDT Scheduled Procedures Name Priority Associated [...] as of this encounter Visit Diagnoses Diagnosis Exposure to COVID-19 virus documented in this encounter Advance Directives Documents on File Type Date Recorded 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 No Healthcare Agents on File Name Relationship Healthcare Agent Relationshi p Communication Wesley Hassan Spouse Health Care Agent Care Teams Border Guard Relationship Specialty Start Date End Date Bella Power MD [address] [place] [address] [place] [phone] PCP - General Family Medicine 04/02/19 documented as of this encounter
--- OUTSIDE RECORDS SUMMARY | 2023-10-27 21:11 | External Medical Summary | Summary of Care ---
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); 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HCC); ESRD (end stage renal disease) on dialysis (HCC); AYSHA (generalized anxiety disorder); Chronic heart failure with preserved ejection fraction (HCC); COPD, group B, by GOLD 2017 classification (HCC); Morbid (severe) obesity due to excess calories (HCC); Anemia in end-stage renal disease (HCC); Dyslipidemia, goal LDL below 100; RENÉ on CPAP; Hypothyroidism due to acquired atrophy of thyroid; History of non-ST elevation myocardial infarction (NSTEMI) Allergies No known active allergiesdocumented as of this encounter (statuses as of 07/02/2023) Medications Medication Sig Dispensed Refills Start Date [...] , group B, by GOLD 2017 classification ([facility]) Inhale via nebulizer. Use as directed. 1 Each 1 11/27/2018 Active DIURETIC TITRATION PLANIndications:Fruit Washer sandro heart failure with preserved ejection fraction [...] WRAP) 30 g 11 11/09/2022 Active Nystatin 996015 UNIT/GM External Powder (Nystop) Apply topically to [...] as of this encounter (statuses as of 07/02/2023) Active Problems Problem Noted Date Diagnosed Date [...] as of this encounter (statuses as of 07/02/2023) Resolved Problems Problem Noted Date Diagnosed Date [...] falls on the pl SDH (subdural hematoma) 04/20/20192 03/2019 Overview: acute Ecchymosis 04/20/2019 09/08/2020 Old [...] as of this encounter (statuses as of 07/02/2023) Immunizations Name Administration Dates Next Due COVID-19 mRNA, LNP-s, No Pre serve, 2-Dose Series (e(ye)BRAIN) 01/02/2021,06/21/2020,05/24/2020 COVID-19, mRNA, LNP-s, PF, B ooster, [...] Progress Notes * Howie Gilbert MD - 07/02/2023 12:05 PM EDT Regulatory Visit TRANSITION EVENT: Type: Regulatory visit Date: July 01 Code Status: Full Code Name: Kami Hassan Date of : 1945 This note pertains to care provided at [facility]. Please see facility medical record for original note. This note is not to be edited or addended in [facility]. Editing or addending needs to occur [...] both hands with positive rheumatoid factor ([facility]) M05.741, M05.742 Primary parkinsonism ([facility]) G20.C History of non-ST elevation myocardial infarction (NSTEMI) I25.2 Venous stasis dermatitis of both lower extremities I87.2 COPD, group B, by GOLD 2017 classification ([facility]) J44.9 Chronic heart failure with preserved ejection fraction ([facility]) I50.32 Iron deficiency anemia due to chronic blood loss D50.0 Diabetes mellitus with ESRD (end-stage renal disease) ([facility]) E11.22, N18.6 Personal history of fall Z91.81 History of CVA (cerebrovascular accident) Z86.73 AVF (arteriovenous fistula) ([facility]) 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[facility]) G20.A1, F02.80 Palliative care encounter Z51.5 Acquired hypothyroidism E03.9 ESRD (end stage renal disease) on dialysis ([facility]) N18.6, Z99.2 Chronic kidney disease-mineral and bone disorder N18.9, E83.9, M89.9 Anemia in end-stage renal disease ([facility]) N18.6, D63.1 Morbid (severe) obesity due to excess calories ([facility]) E66.01 Full code status Z78.9 History of colon polyps Z86.010 Past Medical History: Diagnosis Date (HFpEF) heart failure with preserved ejection fraction ([facility]) Acute on chronic diastolic (congestive) heart failure ([facility]) 03/04/2020 [facility] Allergic rhinitis 02/15/2000 acute BMI 38.0-38.9,adult 08/28/2009 Chronic Sinusitis Unspecified Controlled substance agreement signed 11/25/2016 COVID-19 10/23/2021 Cystitis 05/23/2022 admitted [facility] home on cefuroxime Dyslipidemia, goal LDL below [...] both hands with positive rheumatoid factor ([facility]) 07/18/2016 SDH (subdural hematoma) ([facility]) 04/20/2019 acute Serrated polyp of colon 09/20/2022 7 mm descending colon Sleep apnea Tinnitus 01/2005 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 ([facility]) Past Surgical History: Procedure Laterality Date ARTHROPLASTY KNEE TOTAL Left Dr. Del Real CARPAL TUNNEL SURGERY Bilateral COLONOSCOPY, DIAGNOSTIC (RECTUM) 11/27/2015 normal, repeat 10 yrs/COLONOSCOPY FLEXIBLE PROXIMAL DIAGNOSTIC performed by Garrett Chang MD at ENDOSCOPY [facility] COLONOSCOPY, DIAGNOSTIC (RECTUM) 09/20/2022 serrated polyp, fair prep / [facility] EGD, FLEXIBLE, DIAGNOSTIC 04/19/2022 esophagitis, repeat 8-12 wks / [facility] EGD, FLEXIBLE, DIAGNOSTIC 06/26/2022 normal, retained food / [facility] EXPLORATION OF MAXILLARY SINUS 03/17/1995 Sinus Surgery HYSTEROSCOPY,DIAGNOSTIC 2022 atrophic endometrium, endometrial polyp INJECTION LUMBAR/SACRAL 07/31/2015 INJECTION SPINE LUMBAR OR SACRAL performed by Quincy Prado, DO at OR [facility] INJECTION LUMBAR/SACRAL 08/15/2015 INJECTION SPINE LUMBAR OR SACRAL performed by Quincy Prado, DO at OR [facility] INSER MARLI CAT,W/O PUMP;5YR/OLD N/A 11/04/2019 INSERT TUNNELED CENTRAL VENOUS CATHETER AGE 6 OR OLDER performed by Ortega Montez, at OR [facility] INSER MARLI CAT,W/O PUMP;5YR/OLD Right 03/09/2023 INSERT TUNNELED CENTRAL VENOUS CATHETER AGE 5 OR OLDER performed by Fred Brown MD at OR [facility] INTRO CATH DIALYSIS CIRCUIT W/TRANSLUM BALLOON ANGIOPLASTY Right 03/09/2023 AV FISTULOGRAM & PERIPHERAL ANGIOPLASTY performed by Fred Brown MD at OR [facility] LIGATE/CUT OVIDUCT(S) MISCELLANEOUS ORDER ([facility] ONLY) Bilateral Heel surgery MISCELLANEOUS ORDER ([facility] ONLY) Right 3rd toe nerve decompression, Dr. Del Real [place] COLSC FLX W/RMVL OF TUMOR POLYP LESION [...] date: 04/20/1939 Quit date: 04/20/1989 Years since quittin.2 Smokeless tobacco: Never Tobacco comments: smoked since 19 years of age. Smokes a pack every 3-4 days. 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 Was admitted to [facility] 05/23/23-05/27/23 for acute respiratory failure felt to be due to not wearing CPAP and was also treated for pneumonia. Is not having pain issues. Is not having behavioral problems. Results for orders placed or performed in visit on 05/14/23 CRP (INFLAMMATORY MARKER) Result Value Ref Range CRP (Inflammatory Marker) 13 (H) <=5 mg/L ERYTHROCYTE SEDIMENTATION RATE (ESR) Result Value Ref Range ESR 69 (H) <30 mm/hour URIC ACID Result Value Ref Range Uric Acid 5.7 2.4 - 5.7 mg/dL CBC Result Value Ref Range WBC 9.60 4.00 - 10.80 K/uL RBC 4.72 3.85 - 5.15 M/uL HGB 13.8 12.0 - 15.3 g/dL HCT 43.1 36.0 - 45.2 % MCV 91.3 81.5 - 97.5 fL MCH 29.2 27.0 - 34.0 pg MCHC 32.0 32.0 - 36.0 g/dL RDW 16.4 11.5 - 15.5 % PLT 218 140 - 400 K/uL MPV 12.3 6.6 - 11.1 fL DIFFERENTIAL, AUTOMATED Result Value Ref Range WBC 9.60 4.00 - 10.80 K/uL Neutrophils % 84.0 (H) 40.0 - 75.0 % Lymphocytes % 10.6 (L) 18.0 - 42.0 % Monocytes % 5.2 1.0 - 11.0 % Eosinophils % 0.1 0.0 - 6.0 % Basophils % 0.1 0.0 - 2.0 % Absolute Neutrophils 8.06 (H) 1.80 - 7.70 K/uL Absolute Lymphocytes 1.02 1.00 - 4.80 K/ul Absolute Monocytes 0.50 0.00 - 1.10 K/uL Absolute Eosinophils 0.01 0.00 - 0.70 K/uL Absolute Basophils 0.01 0.00 - 0.20 K/uL DIFFERENTIAL, TECHNOLOGIST REVIEW Result Value Ref Range nRBCs *Note: Due to a large number of results and/or encounters for the requested time period, some results have not been displayed. A complete set of results can be found in Results Review. Hemoglobin AIC Results: Lab Results Component Value Date/Time HEMOGLOBIN A1C - [facility] 4.9 03/09/2023 06:04 AM HEMOGLOBIN A1C - [facility] 5.3 05/31/2021 03:04 PM HEMOGLOBIN A1C - [facility] 5.2 08/21/2020 01:14 PM HEMOGLOBIN A1C - [facility] 5.1 03/23/2019 04:45 PM HEMOGLOBIN A1C - [facility] 4.9 05/01/2018 02:07 PM HEMOGLOBIN A1C - [facility] 5.3 10/13/2017 01:44 PM Lab Results Component Value Date/Time TSH - [facility] 1.56 08/10/2022 01:48 PM TSH - [facility] 2.16 05/31/2021 03:04 PM TSH - [facility] 0.42 08/21/2020 01:14 PM TSH - [facility] 2.61 02/25/2019 03:48 PM TSH - [facility] 1.27 08/01/2018 02:00 PM TSH - [facility] 5.31 (H) 05/30/2017 04:23 PM TSH - OUTSIDE LAB 0.617 01/30/2020 12:00 AM ROS: CONSTITUTIONAL: No change in weight, No fevers, sweats, or chills, and +generalized weakness EYE: No recent significant change in vision and No eye pain, redness, discharge EARS: No ear pain, No drainage, No tinnitus or vertigo, and No recent change in hearing NOSE: No history of frequent colds or sinusitis, No nasal stuffiness, No history of Hay Fever, and No significant epistaxis MOUTH: No bleeding gums, No thrush, or No sore throat PULMONARY: No cough, sputum, or hemoptysis, No wheezing, +COPD, and No recent change in breathing CARDIOVASCULAR: No chest pain, No shortness of breath, No orthopnea, No paroxysmal nocturnal dyspnea, No edema, No palpitations, and No syncope GASTROINTESTINAL: No abdominal pain, No change in bowel habits, No significant heartburn, No significant change in appetite, No nausea, vomiting, diarrhea, or constipation, No hematemesis, No blood in stools or black tarry stools, No abdominal bloating or early satiety, and No dysphagia FEMALE: +dialysis HEMATOLOGIC: No coagulation disorder, No abnormal bleeding, No chills, No bruising, and No weight loss EXTREMITIES: +arthritis SKIN/INTEGUMENTARY: No rash and No itching NEUROLOGIC: No headaches and No seizures. +Parkinson's disease PSYCHIATRIC: +anxiety O: I reviewed the most recent facilities vitals. General: alert, no distress, well nourished, well developed, and obese Head: Normocephalic, No masses, lesions, tenderness or abnormalities Neuro: alert & oriented x 3 with fluent speech, no focal motor/sensory deficits Eye Exam: PERRLA, extraocular movements intact, conjunctiva [...] organomegaly Extremities: no edema, no clubbing, no cyanosis. AV fistula to right upper extremity with palpable thrill A: Primary parkinsonism ([facility]) (Primary)--continue carbidopa-levodopa 25/200 mg TID. Diabetes mellitus with ESRD (end-stage renal disease) ([facility])--on dialysis MWF. Diabetes diet controlled. 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[facility])--stable. No behaviors and has been appropriate. ESRD (end stage renal disease) on dialysis ([facility])--on dialysis through right upper extremity AV fistula. AYSHA (generalized anxiety disorder)--continue sertraline 100 mg daily. Chronic heart failure with preserved ejection fraction ([facility])--volume managed by fluid restriction and dialysis. No edema or volume overload noted. COPD, group B, by GOLD 2017 classification ([facility])--continue Breo and oxygen. Morbid (severe) obesity due to excess calories ([facility])--weight stable. Anemia in end-stage renal disease ([facility])--last hemoglobin was normal. Dyslipidemia, goal LDL below 100--continue atorvastatin 80 mg daily. RENÉ on CPAP--has been using CPAP. Hypothyroidism due to acquired atrophy of thyroid--continue levothyroxine 125 mcg daily. History of non-ST elevation myocardial infarction (NSTEMI)--no new cardiac symptoms. Continue aspirin 81 mg daily and atorvastatin 80 mg daily. P: Medications reviewed. Please refer to MAR in the facility's medical record for the most up-to-date medication list. Continue present medication(s): [facility]ed [facility] for: vital signs, weight, bowel, and bladder function, and ADLs. Labs reviewed Continue current treatment plan as ordered Continue to follow up as needed and as scheduled [facility] Home Treatment Given: n/a Electronically signed by: Howie Gilbert MD I spent a total of 31 minutes coordinating, documenting, and providing care for [...] this encounter Visit Diagnoses Diagnosis Primary parkinsonism (HCC)- Primary Paralysis agitans 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) Type II or unspecified type diabetes mellitus with renal manifestations, not stated as uncontrolled 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HCC) ESRD (end stage renal disease) on dialysis (HCC) End stage renal disease AYSHA (generalized anxiety disorder) Generalized anxiety disorder Chronic heart failure with preserved ejection fraction (HCC) COPD, group B, by GOLD 2017 classification (HCC) Morbid (severe) obesity due to excess calories (HCC) Anemia in end-stage renal disease (HCC) Anemia in chronic kidney disease Dyslipidemia, goal LDL below 100 Other and unspecified hyperlipidemia RENÉ on CPAP Obstructive sleep apnea (adult) (pediatric) Hypothyroidism due to acquired atrophy of thyroid History of non-ST elevation myocardial infarction (NSTEMI) Old myocardial infarction documented in this encounter Advance Directives Documents on File Type Date Recorded Patient 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 No Healthcare Agents on File Name Relationship Healthcare Agent Relationshi p Communication Wesley Hassan Spouse Health Care Agent Care Teams Hydraulic Technician Relationship Specialty Start Date End Date Bella Power MD [address] [place] [address] [place] [phone] PCP - General Family Medicine 04/02/19 documented as of this encounter
--- OUTSIDE RECORDS SUMMARY | 2023-10-27 21:11 | External Medical Summary | Summary of Care ---
Author Name Unknown Organization [facility] Address [address] [facility] [place] [address] Phone [phone] Care Team Providers Care Office Worker Name Role Phone Bella Power MD Primary Care Prov ider Reason for Visit * Reason Comments Outpatient Testing Encounter Details Date Type Department Care Team (Late st Contact Info) Description 07/10/2023 1:20 PM EDT Laboratory Laboratory [address] [place] [id number] , Specimen Drop Off [address] [place] [address] Exposure to COVID-19 [...] 1 Each 1 11/27/2018 Active DIURETIC TITRATION PLANIndications:Certified Medical Aide sandro heart failure with preserved ejection [...] WRAP) 30 g 11 11/09/2022 Active Nystatin 815825 UNIT/GM External Powder (Nystop) Apply topically to [...] Documents on File Type Date Recorded Patient Human Resources Clerk Expl anation Power of Filing Writer 12/16/2018 10:33 AM Nate r of Filing Writer Latest Code Status on File Code Status [...] the patient have Health Care Power of Filing Writer? No Healthcare Agents on File Name Relationship Healthcare Agent Relationshi p Communication Wesley Hassan Spouse Health Care Agent Care Teams Office Worker Relationship Specialty Start Date End Date Bella Power MD [address] [place] [address] [place] [phone] PCP - General Family Medicine 04/02/19 documented as of this encounter
--- OUTSIDE RECORDS SUMMARY | 2023-10-27 21:12 | External Medical Summary | Summary of Care ---
Author Name Unknown Organization [facility] Address [address] [place] [facility] [address] Phone [phone] Care Team Providers Care Mononitrotoluene Operator Name Role Phone Bella Power MD Primary Care Prov ider Reason for Visit * Reason Onset Date Comments Prison Visit - Readmission 05/28/2023 Encounter Details Date Type Department Care Team (Latest Contact Info) Description 05/27/2023 10:30 AM EDT Prison Visit [facility] [address] [place] [address] Nae Rodriges PA-C [address] [place] [address] Acute respiratory failure with hypoxia and hypercapnia (HCC)*; Hypotension, unspecified hypotension type; RENÉ on CPAP; 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); ESRD (end stage renal disease) on dialysis (HCC); 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HCC); Chronic heart failure with preserved ejection fraction (HCC); 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 factor (HCC); Steatohepatitis, non-alcoholic Allergies No known active allergiesdocumented as of this encounter (statuses as of 05/28/2023) Medications Medication Sig Dispensed Refills Start Date End Date Status ONETOUCH DELICA LANCETS 33G MISC Up to 4 times daily 100 Each 6 11/24/2014 Active Glucose Blood (ONETOUCH ULTRA BLUE) STRP Use as directed 4 times a day as needed (Diabetes). Use up to four times a day as directed 100 Strip 11 02/03/2018 Active Nebulizers (NEBULIZER COMPRESSOR) MISCIndications:ASSESSMENT COORDINATOR D, group B, by GOLD 2017 classification ([facility]) Inhale via nebulizer. Use as [...] Indications:COPD, group B, by GOLD 2017 classification ([facility]) Inhale by mouth 1 Puff [...] WRAP) 30 g 11 11/09/2022 Active Nystatin 567708 UNIT/GM External Powder (Nystop) Apply topically to [...] 03/13/2023 Active Pregabalin 100 MG Oral Capsule (Lyrica)Indications :Primary parkinsonism Take 1 capsule by mouth twice daily. May take 1 extra capsule after dialysis 3 days a week 72 Capsule 5 03/19/2023 Active Midodrine HCl 10 MG Oral Tablet (Proamatine) Take 1 Tablet by mouth in the morning and 1 Tablet at noon and 1 Tablet in the evening. 0 05/28/2023 Active Isosorbide Mononitrate ER 30 MG Oral Tablet Extended Release 24 Hour (Imdur) TAKE 1 TABLET BY MOUTH DAILY 90 Tablet 3 01/14/2023 4 Discontinu ed(Medicat ion List Clean Up) documented as of this encounter (statuses as of 05/28/2023) Active Problems Problem Noted Date Diagnosed Date [...] as of this encounter (statuses as of 05/28/2023) Resolved Problems Problem Noted Date Diagnosed Date [...] as of this encounter (statuses as of 05/28/2023) Immunizations Name Administration Dates Next Due COVID-19 [...] Progress Notes * Nae Rodriges PA-C - 05/28/2023 12:11 PM EDT READMISSION NOTE TRANSITION EVENT: Type: Readmission to SNF from Hospital Date: May 26 Code Status: Full Code Subjective: Kami Hassan is a 77 year old female. Date of : 1945 Chief Complaint Patient presents with Prison Visit - Readmission This note pertains to care provided at [facility]. Please see facility medical record for original note. This note is not to be edited or addended in [place]. Editing or addending needs to occur in the facilities medical record. S: Kami Hassan has been readmitted to [facility] from [facility] for remote control mirror installer care. 77 year old female, here for LTC, ESRD on dialysis, DM, COPD, dementia with PD, RENÉ (refuses CPAP frequently) chronic anemia, fatty liver, hypothyoidism was transferred to [facility] ED on 05/23/23 due to persistent hypoxia in the mid 70's%, dyspnea, lethargy, increased confusion. In the ED pt was placed on BiPAP with improvement of her lethargy and mental status. CBC: WBC: 11.55. H/H: 14.6 and 44.4. PLT: 232,000. INR: 0.9. creatinine: 6.68. BUN: 34. Glucose: 130mg%. Phosphorus: 5.9. LFT"s, TSH, Lytes, Magnesium, Lactate, Lipase normal. Nasal screen MRSA positive. Urinalysis showed 2+ protein, 3+ blood, trace leukocytes. CXR showed cardiomegaly with mild pulmonary edema. Airspace opacity in ANGEL LUIS may represent atelectasis, aspiration and /or pneumonia. CT scan of brain showed chronic microvascular ischemic changes, paranasal sinus disease which is chronic and no acute intracranial abnormalties. Echocardiogram showed mild LVH, septal motion consistent with conduction abnormality. LVEF: 50 to 55% aortic valve sclerosis without aortic stenosis, trace MR. Pt developed hypotension at 89/46mmHg MAP 64. Given IVF with improvement to 104/42mmHg. Pt was begun on IV Cefepime for her possible pneumonia. Pt was admitted to ICU. Nephrology was consulted for management of her ESRD and dialysis. Pt was begun on Midodrine 10mg TID for persistent hypotension. Imdur was discontinued. Blood C&S specimen one grew coag negative staph. Vancomycin was begun for possible bacteremia. Group A strep throat swab negative. Cardiology consult was obtained with Dr Levin. Echocardiogram was reviewed. Recommendations madeto avoid AV marine blockers, pacemaker not recommended. Blood C&S specimens 2 and 3 showed no growth so Vancomycin was discontinued. Pt's condition stabilized. Breathing returned to her baseline as did her mentation. Vital signs remained stable. No pain issues. Pt is now readmitted back to [facility] on 05/27/23 with orders to continue Midrodrine 10mg TID and make sure pt accepts her CPAP nightly. 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 factor ([facility]) M05.741, M05.742 Primary parkinsonism G20.C History of non-ST elevation myocardial infarction (NSTEMI) I25.2 Venous stasis dermatitis of both lower extremities I87.2 COPD, group B, by GOLD 2017 classification ([facility]) J44.9 Chronic heart failure with preserved ejection fraction ([facility]) I50.32 Iron deficiency anemia due to chronic blood loss D50.0 Diabetes mellitus with ESRD (end-stage renal disease) ([facility]) E11.22, N18.6 Personal history of fall Z91.81 History of CVA (cerebrovascular accident) Z86.73 AVF (arteriovenous fistula) ([facility]) 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[facility]) G20.A1, F02.80 Palliative care encounter Z51.5 Acquired hypothyroidism E03.9 ESRD (end stage renal disease) on dialysis ([facility]) N18.6, Z99.2 Chronic kidney disease-mineral and bone disorder N18.9, E83.9, M89.9 Anemia in end-stage renal disease ([facility]) N18.6, D63.1 Morbid (severe) obesity due to excess calories ([facility]) E66.01 Full code status Z78.9 History of colon polyps Z86.010 Past Medical History: Diagnosis Date (HFpEF) heart failure with preserved ejection fraction (HCC) Acute on chronic diastolic (congestive) heart failure (HCC) 03/04/2020 [facility] Allergic rhinitis 02/15/2000 acute BMI 38.0-38.9,adult 08/28/2009 Chronic Sinusitis Unspecified Controlled substance agreement signed 11/25/2016 COVID-19 10/23/2021 Cystitis 05/23/2022 admitted [facility] home on cefuroxime Dyslipidemia, goal [...] rheumatoid factor (HCC) 07/18/2016 SDH (subdural hematoma) ([facility]) 04/20/2019 acute Serrated polyp of colon 09/20/2022 7 mm descending colon Sleep apnea Tinnitus 01/2005 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 Del Real CARPAL TUNNEL SURGERY Bilateral COLONOSCOPY, DIAGNOSTIC (RECTUM) 11/27/2015 normal, repeat 10 yrs/COLONOSCOPY FLEXIBLE PROXIMAL DIAGNOSTIC performed by Garrett Chang MD at ENDOSCOPY [facility] [address] COLONOSCOPY, DIAGNOSTIC (RECTUM) 09/20/2022 serrated polyp, fair prep / [facility] EGD, FLEXIBLE, DIAGNOSTIC 04/19/2022 esophagitis, repeat 8-12 wks / [facility] EGD, FLEXIBLE, DIAGNOSTIC 06/26/2022 normal, retained food / [facility] EXPLORATION OF MAXILLARY SINUS 03/17/1995 Sinus Surgery HYSTEROSCOPY,DIAGNOSTIC 2022 atrophic endometrium, endometrial polyp INJECTION LUMBAR/SACRAL 07/31/2015 INJECTION SPINE LUMBAR OR SACRAL performed by Quincy Prado DO at OR [facility] [address] INJECTION LUMBAR/SACRAL 08/15/2015 INJECTION SPINE LUMBAR OR SACRAL performed by Quincy Prado, DO at OR [facility] [address] INSER MARLI CAT,W/O PUMP;5YR/OLD N/A 11/04/2019 INSERT TUNNELED CENTRAL VENOUS CATHETER AGE 6 OR OLDER performed by Ortega Montez DO at OR [facility] INSER MARLI CAT,W/O PUMP;5YR/OLD Right 03/09/2023 [...] 3rd toe nerve decompression, Dr. Del Real LA COLSC FLX W/RMVL OF TUMOR POLYP LESION [...] date: 04/20/1939 Quit date: 04/20/1989 Years since quittin.1 Smokeless tobacco: Never Tobacco comments: smoked since 19 years of age. Smokes a pack every 3-4 days. 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 Social Determinants of Health Financial Resource Strain: [...] of patient's allergies indicates: No Known Allergies Review of Systems: obtained from pt and staff Constitutional ROS: No change in weight, less weakness,less fatigue and No fevers, sweats, or chills Eyes: no changes in vision, blurred vision or eye pain EARs: negative Nose ROS: No nasal stuffiness and No [...] or constipation and No dysphagia Musculoskeletal/Extremities ROS: DJD Skin/Integumentary ROS: No rash and No itching Neurologic ROS: No headaches and No seizures +PD Psychiatric ROS: No depression, No anxiety and No psychosis Sleep: No sleep disorders ADL skills dependent Ambulates with walker OBJECTIVE: PHYSICAL EXAM: I reviewed the most recent facilities vitals. Refer to vital signs flowsheet in halfway chart. General: alert, no distress, well nourished and well developed Head: Normocephalic, No masses, lesions, tenderness or abnormalities Eye Exam: Conjunctiva are pink and non-injected, sclera clear Ears: External ears normal Nose: no mucosal erythema, no mucosal edema, no purulent discharge Oropharynx: no exudate, no erythema, lips, buccal mucosa, and tongue normal and mucous membranes are moist Neck: supple, no adenopathy, non-tender, neck veins flat, trachea midline Lymph: no palpable lymphadenopathy Heart: regular rate & rhythm, no murmurs and no gallops Lungs: normal respiratory rate and rhythm, no chest wall tenderness, lungs clear to auscultation Abdomen: abdomen soft, non-tender, normal bowel sounds and no masses or organomegaly Extremities: no edema, no clubbing, no cyanosis Neuro Exam: alert & oriented x 2 with fluent speech, no focal motor/sensory deficits Skin: skin color, texture, turgor are normal, no rashes or significant lesions ASSESSMENT: Acute respiratory failure with hypoxia and hypercapnia (HCC) (Primary) Reviewed [facility] notes at length Respiratory status back to baseline Continue CPAP Continue Breo Ellipta 20/25mcg daily Hypotension, unspecified hypotension type Continue Midodrine 10mg TID Will follow BP's RENÉ on CPAP Ensure that pt wears CPAP nightly 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) Stable glucoses A1C 4.9% in February 2023 ESRD (end stage renal disease) on dialysis (HCC) Continue with dialysis three days weekly 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HCC) Stable Continue with Sinemet 25/100 TID Chronic heart failure with preserved ejection fraction (HCC) Stable No active CHF Will follow 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 factor (HCC) Stable Will follow Steatohepatitis, non-alcoholic Stable LFT's. PLAN: 1. Continue present medication(s): 2. Admission orders, medications, labs, hospital records and care plan reviewed. 3. Continue current treatment plan as ordered. 4. Care plan reviewed. 5. Advanced Directives were discussed: Full Code 6. Senior Care Home Treatment Given: as above Total time spent with patient 65 minutes with over half time spent reviewing [facility] notes, labs, studies, and planning of care documented in this encounter Plan of Treatment Upcoming Encounters Date Type Department Care Team (Late st Contact Info) Description 06/10/2023 3:00 PM EDT Laboratory Laboratory [address] [place] [phone] [place] [address] 06/16/2023 2:30 PM EDT Office Visit Hematology/Oncology [place] [address] [facility] [place] [phone] Cynthia Gonzalez MD [address] [facility] [place] [address] Scheduled Procedures Name Priority Associated Diagnoses Date/Ti [...] of this encounter Visit Diagnoses Diagnosis Acute respiratory failure with hypoxia and hypercapnia (HCC)- Primary Hypotension, unspecified hypotension type RENÉ on CPAP Obstructive sleep apnea (adult) (pediatric) 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) Type II or unspecified type diabetes mellitus with renal manifestations, not stated as uncontrolled ESRD (end stage renal disease) on dialysis (HCC) End stage renal disease 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HCC) Chronic heart failure with preserved ejection fraction (HCC) 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 No Healthcare Agents on File Name Relationship Healthcare Agent Relationshi p Communication Wesley Hassan Spouse Health Care Agent Care Teams Mononitrotoluene Operator Relationship Specialty Start Date End Date Bella Power MD [address] [place] [address] [place] [address] PCP - General Family Medicine 04/02/19 documented as of this encounter
--- OUTSIDE RECORDS SUMMARY | 2023-10-27 21:12 | External Medical Summary | Continuity Of Care Document ---
Author Name Unknown Address [address] [place] [address] Organization [facility] ( ) Care Team Providers Care Hub Inventory Specialist Name Role Phone Howie Gilbert Primary Care Provider [phone] VITAL SIGNS Date Time Diastolic blood pressure Systolic blood pressure Body height Body weight Temperature SpO2 Blood Sugar Pulse Respirations 23006 213 60647 0 68.00 mm[Hg] - Sitting 115.00 mm[Hg] - Sitting 75.00/ min 34722 227 83419 0 52.00 mm[Hg] - Sitting 90.00 mm[Hg] - Sitting 56.00/ min 43074 305 69065 2 221.00 NI 04833 305 94112 0 98.30 Ear 68504 305 76072 3 98.00 Ear 84770 305 75506 3 98.00 Ear 61373 306 36592 2 98.00 Ear 48196 306 51300 2 223.00 NI 02135 306 97813 5 98.20 Ear 58878 307 44465 3 97.80 Oral 79880 307 15189 7 99.10 Oral 70521 307 58330 4 98.90 Oral 51015 307 06771 0 81.00 mm[Hg] - Sitting 133.00 mm[Hg] - Sitting 93.00 % 68.00/ min 20.00/min 05323 312 06342 0 97.50 Oral 00321 312 71784 8 75.00 mm[Hg] - Lying Down 115.00 mm[Hg] - Lying Down 215.00 NI 97.50 Ear 97.00 % 20.00/min 07665 312 16227 9 97.50 Oral 66993 312 94992 2 75.00 mm[Hg] - Lying Down 115.00 mm[Hg] - Lying Down 97.50 Ear 97.00 % 56.00/ min 20.00/min 56649 312 00826 0 59.00 mm[Hg] - Sitting 119.00 mm[Hg] - Sitting Immunizations Vaccine Date Status COVID-19 05/24/2020 Completed COVID-19 06/21/2020 Completed COVID-19 01/02/2021 Completed COVID-19 07/23/2021 Completed COVID-19 07/24/2021 Completed COVID-19 01/17/2022 Completed Influenza 01/01/2023 Completed (PCV13)Pneumococcal 10/28/2014 Completed (PPSV23)Pneumococcal 03/22/2016 Completed Shingles 10/23/2011 Completed TDaP 06/27/2009 Completed
--- OUTSIDE RECORDS SUMMARY | 2023-10-27 21:12 | External Medical Summary | Summary of Care ---
Author Name Unknown Organization [facility] Address [address] [facility] [place] [address] Phone [phone] Care Team Providers Care Government Professor Name Role Phone Bella Power MD Primary Care Prov ider Reason for Visit * Reason Onset Date Comments Precert In Process 05/23/2023 11 SONIA DARDEN Auryxia 1 GM 210 MG(Fe) Oral Tablet Encounter Details Date Type Department Care Team (Late st Contact Info) Description 05/23/2023 Telephone Nephrology, [facility] [address] [place] [address] Erica Tobar MD [address] [place] [address] Precert In Process (11 SONIA DARDEN Auryx... Allergies No known active allergiesdocumented as of this encounter (statuses as of 05/26/2023) Medications Medication Sig Dispensed Refills Start Date [...] directed. 1 Each 11/27/2018 Active DIURETIC TITRATION PLANIndications:Crime Victim Specialist sandro heart failure with preserved ejection [...] WRAP) 30 g 11 11/09/2022 Active Nystatin 798596 UNIT/GM External Powder (Nystop) Apply topically to [...] as of this encounter (statuses as of 05/26/2023) Active Problems Problem Noted Date Diagnosed Date [...] as of this encounter (statuses as of 05/26/2023) Resolved Problems Problem Noted Date Diagnosed Date [...] as of this encounter (statuses as of 05/26/2023) Immunizations Name Administration Dates Next Due COVID-19 [...] Telephone Encounter - Zeynep Miranda RN - 05/26/2023 2:06 PM EDT Information faxed to [email or web address] in [email or web address]. * Telephone Encounter - Stephanie Santillan CPhT - 05/24/2023 9:32 AM EST Patients insurance would like to inform the office that Auryxia 1 GM 210 MG(Fe) Oral Tablet is requiring additional information: Do not see medical record documentation of a diagnosis of chronic kidney disease (CKD) on dialysis AND Do not see medical record documentation that Auryxia is being used to control serum phosphorus levels.. Prior authorization entered in [facility] at [facility]. EOC# [id number] Please fax to [phone] before 05/24/2023 1200. . Thank you, Stephanie Santillan Truck Service Manager [facility] ([facility]) (Formerly Telepharmacy) 05/24/2023,9:32 AM * Telephone Encounter - Usha Dotson CPhT - 05/23/2023 4:31 PM EST Patients insurance would like to inform the office that Auryxia 1 GM 210 MG(Fe) Oral Tablet is requiring additional information: see below. Prior authorization entered in [facility] at [facility]. EOC# [id number] Please fax to [phone] before 05/24/23 12pm. After our initial review of your request, which can be found starting on page 2 of this fax, the following criteria needs to be met for this to be approved: Do not see medical record documentation of a diagnosis of chronic kidney disease (CKD) on dialysis AND Do not see medical record documentation that Auryxia is being used to control serum phosphorus levels. Formulary Alternatives :not applicable Please include medical record documentation to support the member meeting the above clinical criteria and fax, as soon as possible, to [phone] Thank you, Usha Dotson CPhT II Lockstitch Shoulder Joiner [facility] ([facility]) (Formerly Telepharmacy) 05/23/2023, 4:33 PM documented in this encounter Plan of Treatment Upcoming Encounters Date Type Department Care Team (Late st Contact Info) Description 06/10/2023 3:00 PM EDT Laboratory Laboratory [address] [place] [phone] [address] [place] [address] 06/16/2023 2:30 PM EDT Office Visit Hematology/Oncology [address] [place] [phone] Cynthia Gonzalez MD [address] [facility] [place] [address] Scheduled Procedures Name Priority Associated Diagnoses Date/Ti [...] Documents on File Type Date Recorded Patient Orchard Sprayer Expl anation Power of Cement Conveyor Operator 12/16/2018 10:33 AM Nate r of Cement Conveyor Operator Latest Code Status on File Code [...] patient have Health Care Power of Cement Conveyor Operator? No Healthcare Agents on File Name Relationship Healthcare Agent Relationshi p Communication Wesley Hassan Spouse Health Care Agent Care Teams Government Professor Relationship Specialty Start Date End Date Bella Power MD [address] [place] [address] [place] [address] PCP - General Family Medicine 04/02/19 documented as of this encounter
--- OUTSIDE RECORDS SUMMARY | 2023-10-27 21:12 | External Medical Summary | Continuity Of Care Document ---
Author Name Unknown Address [address] [place] [address] Organization [facility] ( ) Care Team Providers Care Song And Dance Performer Name Role Phone Howie Gilbert Primary Care Provider [phone] Problems Code Description Start Date End Date [...] Active M62.81 Muscle weakness (generalized) 03/18/2023 Active VITAL SIGNS Date Time Diastolic blood pressure Systolic blood pressure Body height Body weight Temperature SpO2 Blood Sugar Pulse Respirations 93714 227 21360 0 52.00 mm[Hg] - Sitting 90.00 mm[Hg] - Sitting 56.00/ min 17713 305 34888 2 221.00 NI 09086 305 14381 0 98.30 Ear 08965 305 57487 3 98.00 Ear 52262 305 63470 3 98.00 Ear 98305 306 96431 2 98.00 Ear 51555 306 80919 2 223.00 NI 63205 306 22338 5 98.20 Ear 99042 307 42434 3 97.80 Oral 72595 307 95577 7 99.10 Oral 90079 307 84053 4 98.90 Oral 52994 307 13754 0 81.00 mm[Hg] - Sitting 133.00 mm[Hg] - Sitting 93.00 % 68.00/ min 20.00/min 48383 312 77957 0 97.50 Oral 78502 312 44127 8 75.00 mm[Hg] - Lying Down 115.00 mm[Hg] - Lying Down 215.00 NI 97.50 Ear 97.00 % 20.00/min 92288 312 43097 9 97.50 Oral 44471 312 35151 2 75.00 mm[Hg] - Lying Down 115.00 mm[Hg] - Lying Down 97.50 Ear 97.00 % 56.00/ min 20.00/min 88575 312 24152 0 59.00 mm[Hg] - Sitting 119.00 mm[Hg] - Sitting 93933 313 76510 5 56361 313 98565 5 49.00 mm[Hg] - Sitting 107.00 mm[Hg] - Sitting 98.20 Oral 94.00 % 18.00/min 314 00665 0 52.00 mm[Hg] - Sitting 108.00 mm[Hg] - Sitting 98.10 Ear 95.00 % 52.00/ min 16.00/min 315 40903 0 66.00 mm[Hg] - Sitting 96.00 mm[Hg] - Sitting 97.50 Ear 92.00 % 50.00/ min 18.00/min 320 82960 3 215.00 NI 323 85001 0 51.00 mm[Hg] - Sitting 108.00 mm[Hg] - Sitting 57.00/ min Immunizations Vaccine Date Status COVID-19 05/24/2020 Completed COVID-19 06/21/2020 Completed COVID-19 01/02/2021 Completed COVID-19 07/23/2021 Completed COVID-19 07/24/2021 Completed COVID-19 01/17/2022 Completed Influenza 01/01/2023 Completed (PCV13)Pneumococcal 10/28/2014 Completed (PPSV23)Pneumococcal 03/22/2016 Completed Shingles 10/23/2011 Completed TDaP 06/27/2009 Completed
--- OUTSIDE RECORDS SUMMARY | 2023-10-27 21:12 | External Medical Summary | Continuity Of Care Document ---
Author Name Unknown Address [address] [place] [address] Organization [facility] ( ) Care Team Providers Care Senior Product Designer Name Role Phone Howie Gilbert Primary Care Provider [phone] Problems Code Description Start Date End Date [...] weight Temperature SpO2 Blood Sugar Pulse Respirations 90541 227 90729 0 52.00 mm[Hg] - Sitting 90.00 mm[Hg] - Sitting 56.00/ min 43509 305 75286 2 221.00 NI 37261 305 17825 0 98.30 Ear 67471 305 24132 3 98.00 Ear 19865 305 78103 3 98.00 Ear 89149 306 98963 2 98.00 Ear 57528 306 53284 2 223.00 NI 14931 306 29003 5 98.20 Ear 48577 307 48598 3 97.80 Oral 82492 307 38326 7 99.10 Oral 23990 307 96469 4 98.90 Oral 84477 307 87965 0 81.00 mm[Hg] - Sitting 133.00 mm[Hg] - Sitting 93.00 % 68.00/ min 20.00/min 89616 312 30255 0 97.50 Oral 53358 312 80913 8 75.00 mm[Hg] - Lying Down 115.00 mm[Hg] - Lying Down 215.00 NI 97.50 Ear 97.00 % 20.00/min 49714 312 94682 9 97.50 Oral 65556 312 10234 2 75.00 mm[Hg] - Lying Down 115.00 mm[Hg] - Lying Down 97.50 Ear 97.00 % 56.00/ min 20.00/min 76855 312 82551 0 59.00 mm[Hg] - Sitting 119.00 mm[Hg] - Sitting 79401 313 66149 5 88756 313 80444 5 49.00 mm[Hg] - Sitting 107.00 mm[Hg] - Sitting 98.20 Oral 94.00 % 18.00/min 314 88261 0 52.00 mm[Hg] - Sitting 108.00 mm[Hg] - Sitting 98.10 Ear 95.00 % 52.00/ min 16.00/min 315 22025 0 66.00 mm[Hg] - Sitting 96.00 mm[Hg] - Sitting 97.50 Ear 92.00 % 50.00/ min 18.00/min 320 05459 3 215.00 NI 323 59319 0 51.00 mm[Hg] - Sitting 108.00 mm[Hg] - Sitting 57.00/ min Immunizations Vaccine Date Status COVID-19 05/24/2020 Completed COVID-19 06/21/2020 Completed COVID-19 01/02/2021 Completed COVID-19 07/23/2021 Completed COVID-19 07/24/2021 Completed COVID-19 01/17/2022 Completed Influenza 01/01/2023 Completed (PCV13)Pneumococcal 10/28/2014 Completed (PPSV23)Pneumococcal 03/22/2016 Completed Shingles 10/23/2011 Completed TDaP 06/27/2009 Completed
--- OUTSIDE RECORDS SUMMARY | 2023-10-27 21:12 | External Medical Summary | Continuity Of Care Document ---
Author Name Unknown Address [address] [place] [address] Organization [facility] ( ) Care Team Providers Care Digital Account Supervisor Name Role Phone Howie Gilbert Primary Care Provider [phone] VITAL SIGNS Date Time Diastolic blood pressure Systolic blood pressure Body height Body weight Temperature SpO2 Blood Sugar Pulse Respirations 90211 213 47851 0 68.00 mm[Hg] - Sitting 115.00 mm[Hg] - Sitting 75.00/ min 30495 227 77813 0 52.00 mm[Hg] - Sitting 90.00 mm[Hg] - Sitting 56.00/ min 99926 305 51345 2 221.00 NI 89760 305 86048 0 98.30 Ear 60843 305 91820 3 98.00 Ear 91841 305 49318 3 98.00 Ear 93775 306 41351 2 98.00 Ear 38868 306 42081 2 223.00 NI 49444 306 04336 5 98.20 Ear 41516 307 19519 3 97.80 Oral 85340 307 96065 7 99.10 Oral 34905 307 34848 4 98.90 Oral 28040 307 91844 0 81.00 mm[Hg] - Sitting 133.00 mm[Hg] - Sitting 93.00 % 68.00/ min 20.00/min 27062 312 47338 0 97.50 Oral 88692 312 25032 8 75.00 mm[Hg] - Lying Down 115.00 mm[Hg] - Lying Down 215.00 NI 97.50 Ear 97.00 % 20.00/min 53682 312 86222 9 97.50 Oral 49043 312 42511 2 75.00 mm[Hg] - Lying Down 115.00 mm[Hg] - Lying Down 97.50 Ear 97.00 % 56.00/ min 20.00/min 64887 312 24974 0 59.00 mm[Hg] - Sitting 119.00 mm[Hg] - Sitting Immunizations Vaccine Date Status COVID-19 05/24/2020 Completed COVID-19 06/21/2020 Completed COVID-19 01/02/2021 Completed COVID-19 07/23/2021 Completed COVID-19 07/24/2021 Completed COVID-19 01/17/2022 Completed Influenza 01/01/2023 Completed (PCV13)Pneumococcal 10/28/2014 Completed (PPSV23)Pneumococcal 03/22/2016 Completed Shingles 10/23/2011 Completed TDaP 06/27/2009 Completed
--- OUTSIDE RECORDS SUMMARY | 2023-10-27 21:12 | External Medical Summary | Continuity Of Care Document ---
Author Name Unknown Address [address] [place] [address] Organization [facility] ( ) Care Team Providers Care Cork Molder Name Role Phone Howie Gilbert Primary Care Provider [phone] Problems Code Description Start Date End Date [...] weight Temperature SpO2 Blood Sugar Pulse Respirations 74496 227 25948 0 52.00 mm[Hg] - Sitting 90.00 mm[Hg] - Sitting 56.00/ min 24038 305 92712 2 221.00 NI 72688 305 56228 0 98.30 Ear 88670 305 47348 3 98.00 Ear 05427 305 91973 3 98.00 Ear 13490 306 17989 2 98.00 Ear 02515 306 63909 2 223.00 NI 33261 306 83740 5 98.20 Ear 58969 307 44331 3 97.80 Oral 42635 307 75469 7 99.10 Oral 06514 307 78725 4 98.90 Oral 20963 307 26031 0 81.00 mm[Hg] - Sitting 133.00 mm[Hg] - Sitting 93.00 % 68.00/ min 20.00/min 16347 312 67301 0 97.50 Oral 90624 312 85958 8 75.00 mm[Hg] - Lying Down 115.00 mm[Hg] - Lying Down 215.00 NI 97.50 Ear 97.00 % 20.00/min 80412 312 30898 9 97.50 Oral 53093 312 78552 2 75.00 mm[Hg] - Lying Down 115.00 mm[Hg] - Lying Down 97.50 Ear 97.00 % 56.00/ min 20.00/min 13486 312 71580 0 59.00 mm[Hg] - Sitting 119.00 mm[Hg] - Sitting 12625 313 37212 5 42291 313 76920 5 49.00 mm[Hg] - Sitting 107.00 mm[Hg] - Sitting 98.20 Oral 94.00 % 18.00/min 314 23102 0 52.00 mm[Hg] - Sitting 108.00 mm[Hg] - Sitting 98.10 Ear 95.00 % 52.00/ min 16.00/min 315 86696 0 66.00 mm[Hg] - Sitting 96.00 mm[Hg] - Sitting 97.50 Ear 92.00 % 50.00/ min 18.00/min 320 76034 3 215.00 NI 323 28413 0 51.00 mm[Hg] - Sitting 108.00 mm[Hg] - Sitting 57.00/ min Immunizations Vaccine Date Status COVID-19 05/24/2020 Completed COVID-19 06/21/2020 Completed COVID-19 01/02/2021 Completed COVID-19 07/23/2021 Completed COVID-19 07/24/2021 Completed COVID-19 01/17/2022 Completed Influenza 01/01/2023 Completed (PCV13)Pneumococcal 10/28/2014 Completed (PPSV23)Pneumococcal 03/22/2016 Completed Shingles 10/23/2011 Completed TDaP 06/27/2009 Completed
--- OUTSIDE RECORDS SUMMARY | 2023-10-27 21:12 | External Medical Summary | Summary of Care ---
Author Name Unknown Organization [facility] Address [address] [facility] [place] [address] Phone [phone] Care Team Providers Care Supervisor [place] Name Role Phone Bella Power MD Primary Care Prov ider Reason for Visit * Reason Comments Follow Up Encounter Details Date Type Department Care Team (Late st Contact Info) Description 06/24/2023 3:30 PM EDT Office Visit Hematology/Oncology [facility] [place] [address] [facility] [place] [id number] Cynthia Gonzalez MD [address] [facility] [place] [address] ESRD on dialysis ([facility]LY [facility])*; Macrocytic anemia Allergies No known active allergiesdocumented as of this encounter (statuses as of 06/24/2023) Medications Medication Sig Dispensed Refills Start Date [...] [facility]) Inhale via nebulizer. Use as directed. 1 Each 11/27/2018 Active DIURETIC TITRATION PLANIndications:Yarn Spinner sandro heart failure with preserved ejection fraction [...] WRAP) 30 g 11 11/09/2022 Active Nystatin 631750 UNIT/GM External Powder (Nystop) Apply topically to [...] as of this encounter (statuses as of 06/24/2023) Active Problems Problem Noted Date Diagnosed Date [...] as of this encounter (statuses as of 06/24/2023) Resolved Problems Problem Noted Date Diagnosed Date [...] as of this encounter (statuses as of 06/24/2023) Immunizations Name Administration Dates Next Due COVID-19 [...] Average Number of Drinks Not on file 09/13/2 019 Frequency of Binge Drinking Not on [...] Sign Reading Time Taken Comments Blood Pressure 96/51 06/24/2023 3:25 PM EDT Pulse 74 06/24/2023 3:25 PM EDT Temperature 36.3 C (97.4 F) 06/24/2023 3:25 PM ED T Respiratory Rate 16 06/24/2023 3:25 PM EDT Oxygen Saturation 92% 06/24/2023 3:25 PM EDT 92 on 2LO2 Inhaled Oxygen Concentration - - Weight 100.2 kg (221 lb) 06/24/2023 3:25 PM EDT Height - - Body Mass Index 40.42 03/09/2023 7:20 AM EST documented in this [...] as of this encounter Progress Notes * Cynthia Gonzalez MD - 06/24/2023 3:29 PM EDT Outpatient Consult Note Data Source: Patient, Epic record. Data Source: Patient, Epic record. 06/24/2023 3:29 PM Kami Hassan [id number] 77 year old Patient Encounter: HEMATOLOGY/ONCOLOGY [facility] Cancer Diagnosis: Anemia of ESRD Current Treatment: IV Venofer 100 mg at each HD session Ferrous sulfate one tablet three times a day Mircera every two weeks at HD Oncologic History : 77-year-old female with history of ESRD on HD, PD, HTN, COPD, dyslipidemia, AYSHA, T2DM, RENÉ, RA, dementia, hypothyroidism and CHF. Currently receiving HD Friday, and Friday at [facility]. Receives Venofer 100 mg IV with each HD treatment. Receiving max dose of Mircera everytwo weeks at HD. Previously had a baseline [...] obtained from chart review. Admitted at [facility] in September for colonoscopy and hysteroscopy for [...] as needed. Was also admitted to [facility] in August d/t infected decubitus ulcerations on [...] is recommended for further assessment. Interval History: She was admitted hospital recently with altered mental status and shortness of breath. Now clinically she is feeling better.She denies any headache, blurred vision, chest pain, palpitation, abdominalpain, bleeding, bruising, nausea, vomiting. Currently she is on 3 L of oxygen. LABS/IMAGING: Results for orders placed or performed in [...] results can be found in Results Review. Her last CBC was done on 05/27/2023 which shows WBC count of 11.5, hemoglobin 14.6 and platelet count 232. REVIEW OF SYSTEMS: General: No Fever, chills, night sweats, or weight loss. HEENT: No change in visual acuity, blurred or double vision. No epistaxis, facial pain, nasal discharge or change in hearing. Denies dysphagia, no muscosal ulceration, or sores noted. Cardiovascular: No chest pain, BAKER, or palpitations Respiratory: stable shortness of breath, cough, No hemoptysis, or pleuritic chest pain Gastrointestinal: No abdominal pain, nausea, vomiting, diarrhea, rectal pain or bleeding Genitourinary: Denies Hematuria or dysuria Psychiatric: No vegetative signs of depression Endocrine: No symptoms of hypothyroidism or hyperglycemia Hematologic: No bleeding or lymph nodes noted As mentioned above, all of the systems were reviewed in full and are unremarkable. Past Medical History: Diagnosis Date (HFpEF) heart failure with preserved ejection fraction (HCC) Acute on chronic diastolic (congestive) heart failure ([facility]) 03/04/2020 [facility] Allergic [...] pl NSTEMI (non-ST elevated myocardial infarction) ([facility]) 09/03/2018 Parkinson disease Rectal bleeding Restless leg syndrome 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 factor ([facility]) 07/18/2016 SDH (subdural hematoma) ([facility]) 04/20/2019 acute Serrated polyp of colon 09/20/2022 7 mm descending colon Sleep apnea Tinnitus 01/2005 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 (HCC) Current Outpatient Medications Medication Sig Dispense Refill [...] DRESSING (SARAN WRAP) 30 g 11 Nystatin 474199 UNIT/GM External Powder (Nystop) Apply topically to affected area 2 times a day. 60g 5 Pantoprazole Sodium 20 MG Oral Tablet Delayed Release (Protonix) Take 1 Tablet by mouth in the morning and 1 Tablet in the evening. 180 Tablet 1 CPAP every night at bedtime. Coloplast Paste Use to hemorrhoids 1-2 times per day as needed for hemorrhoids 57 g 3 Hydrocortisone (Perianal) 2.5 % External Cream (Procto-Med HC) Administer into the rectum daily as needed for Hemorrhoids. 28 g 2 Pregabalin 100 MG Oral Capsule (Lyrica) Take 1 capsule by mouth twice daily. May take 1 extra capsule after dialysis 3 days a week 72 Capsule 5 Midodrine HCl 10 MG Oral Tablet (Proamatine) Take 1 Tablet by mouth in the morning and 1 Tablet at noon and 1 Tablet in the evening. No current facility-administered medications for this visit. Social History Tobacco Use Smoking status: Former Current packs/day: [...] of patient's allergies indicates: No Known Allergies PHYSICAL EXAMINATION: General Appearance: Healthy appearing patient in no acute distress , in wheelchair and on oxygen BP 96/51 (BP Site: Left Arm, BP Position: Sitting, BP Cuff Size: Regular) | Pulse 74 | Temp 36.3 C (97.4 F) (Tympanic) | Resp 16 | Wt 100.2 kg (221 lb) | SpO2 92% Comment: 92 on 2LO2 | BMI 40.42 kg/m | BSA 2.09 m Vitals reviewed. HEENT: No oral or pharyngeal masses, ulceration or thrush noted, no sinus tenderness. Neck is supple with no thyromegaly or JVD noted. Lymph Nodes: No lymphadenopathy noted in the occipital, pre and post auricular, cervical, supra andinfraclavicular, axillary, epitrochlear, inguinal, and popliteal region. Lungs/Thorax: decreased breath sounds bilaterally in the lung base, no accessory muscles of respiration being used. Heart: Regular rate and rhythm, normal S1, S2 Abdomen: Soft, nontender, bowel sounds present, no appreciable hepatosplenomegaly, no palpable masses Extremeties: Good pulses bilaterally, no peripheral edema. ASSESSMENT: 77-year-old female with history of multiple medical problems including diabetes, end-stage renal disease on dialysis, COPD, hypothyroidism, Parkinson's disease, obstructive sleep apnea was initially seen because of the anemia. Currently she is staying at [facility]. Overall clinically she is stable. She continues to have dialysis 4 times a week. She was recently admitted to the hospital with altered mental status and breathing problem. Now sheis on 3 L of oxygen with saturation of 92%. Her recent blood test were in acceptable range with normal hemoglobin. With normalization of hemoglobin level, she can continue follow PCP for further management. Discussed with the patient about diagnosis reviewed all the available blood test result withher. PLAN: She will be followed by her PCP for further management. She can be referred back to us in case if she develops any new issues or problem related to the Hematology. The patient voiced understanding of all of the above. All questions and concerns were addressed in an apparently satisfactory manner. Cynthia Gonzalez MD (This note was completed using the dictation program Fluency Direct. As such, there may be misspellings, word substitutions, or other variations that should not change the essence of the clinical content of this encounter note. If there is need for further clarification, please direct questions to me.) documented in this encounter Nursing Notes * Gem Koehler, MED ASSIST - 06/24/2023 3:33 PM EDT Patient identifed by name and birthdate Do you have any concerns about pain management for today's visit? No Living Will or Advance Directive for Health Care as noted on the problem list. [facility] is a way you can talk to your provider on line through e-mail. Would you like to sign up? I can activate it for you? NO Filed Vitals: 06/24/23 1525 BP: 96/51 Pulse: 74 Resp: 16 Temp: 36.3 C (97.4 F) TempSrc: Tympanic SpO2: 92% Weight: 100.2 kg (221 lb) Patient was instructed to not get up [...] dialysis (HCC)- Primary End stage renal disease Macrocytic anemia Unspecified deficiency anemia documented in this encounter Advance Directives Documents on File Type Date Recorded Patient Coremaker Supervisor Expl anation Power of Project Officer 12/16/2018 10:33 AM Nate r of Project Officer Latest Code Status on File Code [...] the patient have Health Care Power of Project Officer? No Healthcare Agents on File Name Relationship Healthcare Agent [facility] p Communication Wesley Hassan Spouse Health Care Agent Care Teams Supervisor [place] Relationship Specialty Start Date End Date Bella Power MD [address] [place] [address] [place] [id number] PCP - General Family Medicine 04/02/19 documented as of this encounter
--- OUTSIDE RECORDS SUMMARY | 2023-10-27 21:12 | External Medical Summary | Summary of Care ---
Author Name Unknown Organization [facility] Address [address] [facility] [place] [address] Phone [phone] Care Team Providers Care Jack Prizer Name Role Phone Bella Power MD Primary Care Prov ider Reason for Visit * Reason Onset Date Comments Jail Visit 05/29/2023 Encounter Details Date Type Department Care Team (Latest Contact Info) Description 05/29/2023 8:00 AM EDT Jail Visit [facility] [address] [place] [address] Nae Rodriges PA-C [address] [place] [address] Acute respiratory failure with hypoxia and hypercapnia (HCC)*; ESRD (end stage renal disease) on dialysis (HCC); Monilial rash; RENÉ on CPAP Allergies No known active allergiesdocumented as of this encounter (statuses as of 05/29/2023) Medications Medication Sig Dispensed Refills Start Date [...] , group B, by GOLD 2017 classification ([facility]) Inhale via nebulizer. Use as directed. 1 Each 1 11/27/2018 Active DIURETIC TITRATION PLANIndications:Publicity Person sandro heart failure with preserved ejection fraction [...] WRAP) 30 g 11 11/09/2022 Active Nystatin 011632 UNIT/GM External Powder (Nystop) Apply topically to [...] Tablet in the evening. 0 05/28/2023 Active documented as of this encounter (statuses as of 05/29/2023) Active Problems Problem Noted Date Diagnosed Date [...] as of this encounter (statuses as of 05/29/2023) Resolved Problems Problem Noted Date Diagnosed Date [...] as of this encounter (statuses as of 05/29/2023) Immunizations Name Administration Dates Next Due COVID-19 [...] Progress Notes * Nae Rodriges PA-C - 05/29/2023 1:33 PM EDT Name: Kami Hassan Date of :1945 TRANSITION EVENT: Type: Non-applicable Date: May 28 Code Status: No Code This note pertains to care provided at [facility]. Please see facility medical record for original note. This note is not to be edited or addended in [employer]. Editing or addending needs to occur in the facilities medical record. Subjective: Kami Hassan is a 77 year old female. Patient being seen for several issues Chief Complaint Patient presents with Jail Visit HPI: pt is readmission back to SNF from [facility] this week due to acute hypercapneic/hypoxic respiratory failure and hypotension. Pt was noncompliant with her CPAP at night. She was treated with BIPAP and was compliant with CPAP in hospital with improvement in her respiratory failure. She is now on Midr odrine 10mg TID for hypotension. Her BP's have been stable since readmission. Pt is now more compliant with wearing her CPAP but still continues to require much staff encouragement and education. Vital signs stable. Pt continues to go to dialysis three days weekly. Pt noted by staff to have rash under abdominal folds. Pt is very sedentary. Has significant adiposetissue. Has DM. No new soaps, medications, detergents. No chills or fever. 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 due to acquired atrophy of thyroid E03.4 Steatohepatitis, non-alcoholic K75.81 Obesity E66.9 Restless leg syndrome G25.81 Dyslipidemia, goal LDL below 100 E78.5 AYSHA (generalized anxiety disorder) F41.1 RENÉ on CPAP G47.33 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 factor ([facility]) M05.741, M05.742 Primary parkinsonism G20.C History of non-ST elevation myocardial infarction (NSTEMI) I25.2 Venous stasis dermatitis of both lower extremities I87.2 COPD, group B, by GOLD 2017 classification ([facility]) J44.9 Chronic heart failure with preserved ejection fraction ([facility]) I50.32 Iron deficiency anemia due to chronic blood loss D50.0 Diabetes mellitus with ESRD (end-stage renal disease) ([facility]) E11.22, N18.6 Personal history of fall Z91.81 History of CVA (cerebrovascular accident) Z86.73 AVF (arteriovenous fistula) ([facility]) 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[facility]) G20.A1, F02.80 Palliative care encounter Z51.5 Acquired hypothyroidism E03.9 ESRD (end stage renal disease) on dialysis ([facility]) N18.6, Z99.2 Chronic kidney disease-mineral and bone disorder N18.9, E83.9, M89.9 Anemia in end-stage renal disease ([facility]) N18.6, D63.1 Morbid (severe) obesity due to excess calories ([facility]) E66.01 Full code status Z78.9 History of colon polyps Z86.010 Past Medical History: Diagnosis Date (HFpEF) heart failure with preserved ejection fraction (HCC) Acute on chronic diastolic (congestive) heart failure (HCC) 03/04/2020 [facility] Allergic rhinitis 02/15/2000 acute BMI 38.0-38.9,adult 08/28/2009 Chronic Sinusitis Unspecified Controlled substance agreement signed 11/25/2016 COVID-19 10/23/2021 Cystitis 05/23/2022 admitted [facility] home on cefuroxime Dyslipidemia, goal LDL below [...] rheumatoid factor (HCC) 07/18/2016 SDH (subdural hematoma) ([facility]) 04/20/2019 acute Serrated polyp of colon 09/20/2022 7 mm descending colon Sleep apnea Tinnitus 01/2005 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 ([facility]) Past Surgical History: Procedure Laterality Date ARTHROPLASTY KNEE TOTAL Left Dr. Del Real CARPAL TUNNEL SURGERY Bilateral COLONOSCOPY, DIAGNOSTIC (RECTUM) 11/27/2015 normal, repeat 10 yrs/COLONOSCOPY FLEXIBLE PROXIMAL DIAGNOSTIC performed by Garrett Chang MD at ENDOSCOPY [facility] COLONOSCOPY, DIAGNOSTIC (RECTUM) 09/20/2022 serrated polyp, fair prep / [facility] EGD, FLEXIBLE, DIAGNOSTIC 04/19/2022 esophagitis, repeat 8-12 wks / [facility] EGD, FLEXIBLE, DIAGNOSTIC 06/26/2022 normal, retained food / [facility] EXPLORATION OF MAXILLARY SINUS 03/17/1995 Sinus Surgery HYSTEROSCOPY,DIAGNOSTIC 2022 atrophic endometrium, endometrial polyp INJECTION LUMBAR/SACRAL 07/31/2015 INJECTION SPINE LUMBAR OR SACRAL performed by Quincy Prado, DO at OR [facility] INJECTION LUMBAR/SACRAL 08/15/2015 INJECTION SPINE LUMBAR OR SACRAL performed by Quincy Prado, DO at OR [facility] INSER MARLI CAT,W/O PUMP;5YR/OLD N/A 11/04/2019 INSERT TUNNELED CENTRAL VENOUS CATHETER AGE 5 OR OLDER performed by Ortega Montez DO at OR [facility] INSER MARLI CAT,W/O PUMP;5YR/OLD Right 03/09/2023 INSERT TUNNELED CENTRAL VENOUS CATHETER AGE 5 OR OLDER performed by Fred Brown MD at OR [facility] INTRO CATH DIALYSIS CIRCUIT W/TRANSLUM BALLOON ANGIOPLASTY Right 03/09/2023 AV FISTULOGRAM & PERIPHERAL ANGIOPLASTY performed by Fred Brown MD at OR [facility] LIGATE/CUT OVIDUCT(S) MISCELLANEOUS ORDER ([facility] ONLY) Bilateral Heel surgery MISCELLANEOUS ORDER ([facility] ONLY) Right 3rd toe nerve decompression, Dr. 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 Review of Systems: obtained from pt and staff Constitutional ROS: No change in weight, No change in weakness, Nochange in fatigue and No fevers, sweats, or chills [...] or constipation and No dysphagia Musculoskeletal/Extremities ROS: RA Skin/Integumentary ROS: see HPI Neurologic ROS: No headaches and No seizures Psychiatric ROS: No depression, No anxiety and No psychosis Sleep: RENÉ OBJECTIVE: PHYSICALEXAM: I reviewed the most recent [...] bowel sounds and no masses or organomegaly Extremities:no edema, no clubbing, no cyanosis Skin: skin color, texture, turgor are normal, no rashes or significant lesions Musculoskeletal: moves all extremities with good strength ASSESSMENT: Acute respiratory failure with hypoxia and hypercapnia (HCC) (Primary) Resolved currently Continue to encourage use of CPAP Will follow ESRD (end stage renal disease) on dialysis (HCC) Continue dialysis three days weekly Monilial rash Antifungal powder BID as directed Keep area clean and dry RENÉ on CPAP More compliant with CPAP since readmission PLAN: and Continue present medication(s):as ordered. [facility] Home Treatment Given: as above Electronically signed by: Nae Rodriges PA-C Over 35 minutes were spent in this visit more than half the time was spent counselling or coordinating care. documented in this encounter Plan of Treatment Upcoming Encounters Date Type Department Care Team (Late st Contact Info) Description 06/10/2023 3:00 PM EDT Laboratory Laboratory [address] [place] [phone] [place] [address] 06/16/2023 2:30 PM EDT Office Visit Hematology/Oncology [facility] [address] [place] [phone] Cynthia Gonzalez MD [address] [place] [address] Scheduled Procedures Name Priority Associated Diagnoses Date/Ti [...] failure with hypoxia and hypercapnia (HCC)- Primary ESRD (end stage renal disease) on dialysis (HCC) End stage renal disease Monilial rash Candidiasis of skin and nails REÉN on CPAP Obstructive sleep apnea (adult) (pediatric) documented in this encounter Advance Directives Documents on File Type Date Recorded Patient Acupuncturist Expl anation Power of Real Estate Sales Supervisor 12/16/2018 10:33 AM Nate r of Real Estate Sales Supervisor Latest Code Status on File Code [...] the patient have Health Care Power of Real Estate Sales Supervisor? No Healthcare Agents on File Name Relationship Healthcare Agent Relationshi p Communication Wesley Hassan Spouse Health Care Agent Care Teams Jack Prizer Relationship Specialty Start Date End Date Bella Power MD [address] [place] [address] [place] [address] PCP - General Family Medicine 04/02/19 documented as of this encounter
--- OUTSIDE RECORDS SUMMARY | 2023-10-27 21:12 | External Medical Summary | Summary of Care ---
Author Name Unknown Organization [facility] Address [address] [facility] [place] [address] Phone [phone] Care Team Providers Care Transit Police Officer Name Role Phone Bella Power MD Primary Care Prov ider Reason for Visit * Reason Onset Date Comments Precert Approved 05/23/2023 Auryxia 1 GM 21 0 MG(Fe) Oral Tablet Encounter Details Date Type Department Care Team (Late st Contact Info) Description 05/23/2023 Telephone Nephrology, [facility] [address] [place] [address] Erica Tobar MD [address] [place] [address] Precert Approved ( Auryxia 1 GM 210 MG(Fe)... Allergies No known active allergiesdocumented as of this encounter (statuses as of 05/27/2023) Medications Medication Sig Dispensed Refills Start Date [...] directed. 1 Each 11/27/2018 Active DIURETIC TITRATION PLANIndications:Dishwasher Busser sandro heart failure with preserved ejection fraction [...] WRAP) 30 g 11 11/09/2022 Active Nystatin 929336 UNIT/GM External Powder (Nystop) Apply topically to [...] as of this encounter (statuses as of 05/27/2023) Active Problems Problem Noted Date Diagnosed Date [...] as of this encounter (statuses as of 05/27/2023) Resolved Problems Problem Noted Date Diagnosed Date [...] as of this encounter (statuses as of 05/27/2023) Immunizations Name Administration Dates Next Due COVID-19 [...] 05/26/2023 2:06 PM EDT [facility] [place] * Telephone Encounter - Stephanie Santillan CPhT [...] serum phosphorus levels.. Prior authorization entered in [facility] at [facility]. EOC# [id number] Please fax to [phone] before 05/24/2023 1200. . Thank you, Stephanie Santillan [employer] [facility] ([facility] (Formerly [facility]pharm[facility]) 05/24/2023,9:32 AM * Telephone Encounter - Usha Dotson CPhT - 05/23/2023 4:31 PM EST Patients insurance would like to inform the office that Auryxia 1 GM 210 MG(Fe) Oral Tablet is requiring additional information: see below. Prior authorization entered in [facility] at [facility]. EOC# [id number] Please fax to [phone] before 05/24/23 12pm. After our initial review [...] and fax, as soon as possible, to [phone] Thank you, Usha Dotson CPhT II Aircraft Worker [facility] ([facility]) (Formerly Telepharmacy) 05/23/2023, 4:33 PM documented in this encounter Plan of Treatment Upcoming Encounters Date Type Department Care Team (Late st Contact Info) Description 06/10/2023 3:00 PM EDT Laboratory Laboratory [address] [place] [phone] [place] [address] 06/16/2023 2:30 PM EDT Office Visit Hematology/Oncology [facility] [address] [place] [phone] Cynthia Gonzalez MD [address] [place] [address] Scheduled Procedures Name Priority Associated Diagnoses Date/Ti [...] Documents on File Type Date Recorded Patient Turbo Operator Expl anation Power of Cullet Crusher 12/16/2018 10:33 AM Nate r of Cullet Crusher Latest Code Status on File Code Status [...] the patient have Health Care Power of Cullet Crusher? No Healthcare Agents on File Name Relationship Healthcare Agent Relationshi p Communication Wesley Hassan Spouse Health Care Agent Care Teams Transit Police Officer Relationship Specialty Start Date End Date Bella Power MD [address] [place] [address] [place] [address] PCP - General Family Medicine 04/02/19 documented as of this encounter
--- OUTSIDE RECORDS SUMMARY | 2023-10-27 21:12 | External Medical Summary | Summary of Care ---
Author Name Unknown Organization [facility] Address [address] [place] [address] Phone [phone] Care Team Providers Care Center Specialists Name Role Phone Bella Power MD Primary Care Prov ider Reason for Visit * Reason Onset Date Comments Skilled Visit 05/28/2023 Encounter Details Date Type Department Care Team (Latest Contact Info) Description 05/28/2023 6:00 AM EDT Intermediate Visit [facility] [address] [place] [address] Nae Rodriges PA-C [address] [place] [address] Acute respiratory failure with hypoxia and hypercapnia ([facility])*; Hypotension, unspecified hypotension type; Type 2 DM with hypertension and ESRD on dialysis ([facility]); Primary parkinsonism; Anemia in end-stage renal disease ([facility]) Allergies No known active allergiesdocumented as [...] 2017 classification ([facility]) Inhale via nebulizer. Use as directed. 1 Each 1 11/27/2018 Active DIURETIC TITRATION PLANIndications:Fur Buyer sandro heart failure with preserved ejection fraction [...] WRAP) 30 g 11 11/09/2022 Active Nystatin 724116 UNIT/GM External Powder (Nystop) Apply topically to [...] Notes * Nae Rodriges PA-C - 05/28/2023 12:47 PM EDT Name: Kami Hassan Date of :1945 TRANSITION EVENT: Type: Skilled visit Date: May 27 Code Status: Full Code This note pertains to care provided at [facility]. Please see facility medical record for original note. This note is not to be edited or addended in [employer]. Editing or addending needs to occur in the facilities medical record. Subjective: Kami Hassan is a 77 year old female. Patient being seen for skilled visit Chief Complaint Patient presents with Skilled Visit HPI: pt was readmitted back to SNF from [facility] yesterday after admission for acute hypoxic/hypercapneic respiratory failure due to nonadherence to wearing CPAP. Found to be recurrently hypotensive and placed on Midrodrine 10mg TID initially treated with IV antibiotics for possible bacteremia but blood C&S negative for Vancomycin was discontinued. Pt is at her baseline in mentation this morning. Vital signs stable. Eating and sleeping ok. No diarrhea. Labs done at dialysis center Patient Active Problem List Diagnosis Code ADVANCE DIRECTIVE INFORMATION Meniere's disease, cochlear, active H81.09 Hypothyroidism due to acquired atrophy of thyroid E03.4 Steatohepatitis, non-alcoholic K75.81 Obesity E66.9 Restless leg syndrome G25.81 Dyslipidemia, goal LDL below 100 E78.5 AYSHA (generalized anxiety disorder) F41.1 RENÉ on CPAP G47.33 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 factor ([facility]) M05.741, M05.742 Primary parkinsonism G20.C History of non-ST elevation myocardial infarction (NSTEMI) I25.2 Venous stasis dermatitis of both lower extremities I87.2 COPD, group B, by GOLD 2017 classification ([facility]) J44.9 Chronic heart failure with preserved ejection fraction ([facility]) I50.32 Iron deficiency anemia due to chronic blood loss D50.0 Diabetes mellitus with ESRD (end-stage renal disease) ([facility]) E11.22, N18.6 Personal history of fall Z91.81 History of CVA (cerebrovascular accident) Z86.73 AVF (arteriovenous fistula) ([facility]) 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[facility]) G20.A1, F02.80 Palliative care encounter Z51.5 Acquired hypothyroidism E03.9 ESRD (end stage renal disease) on dialysis ([facility]) N18.6, Z99.2 Chronic kidney disease-mineral and bone disorder N18.9, E83.9, M89.9 Anemia in end-stage renal disease ([facility]) N18.6, D63.1 Morbid (severe) obesity due to excess calories ([facility]) E66.01 Full code status Z78.9 History of colon polyps Z86.010 Past Medical History: Diagnosis Date (HFpEF) heart failure with preserved ejection fraction ([facility]) Acute on chronic diastolic (congestive) heart failure ([facility]) 03/04/2020 [facility] Allergic rhinitis 02/15/2000 acute BMI 38.0-38.9,adult 08/28/2009 Chronic Sinusitis Unspecified Controlled substance agreement signed 11/25/2016 COVID-19 10/23/2021 Cystitis 05/23/[address] 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 Del Real CARPAL TUNNEL SURGERY Bilateral COLONOSCOPY, DIAGNOSTIC (RECTUM) 11/27/2015 normal, repeat 10 yrs/COLONOSCOPY FLEXIBLE PROXIMAL DIAGNOSTIC performed by aGrrett Chang MD at ENDOSCOPY [facility] COLONOSCOPY, DIAGNOSTIC (RECTUM) 09/20/2022 serrated polyp, fair prep / [facility] EGD, FLEXIBLE, DIAGNOSTIC 04/19/2022 esophagitis, repeat 8-12 wks / [facility] EGD, FLEXIBLE, DIAGNOSTIC 06/26/2022 normal, retained food / [facility] EXPLORATION OF MAXILLARY SINUS 03/17/1995 Sinus Surgery HYSTEROSCOPY,DIAGNOSTIC 2022 atrophic endometrium, endometrial polyp INJECTION LUMBAR/SACRAL 07/31/2015 INJECTION SPINE LUMBAR OR SACRAL performed by Quincy Prado DO at OR [facility] INJECTION LUMBAR/SACRAL 08/15/2015 INJECTION SPINE LUMBAR OR SACRAL performed by Quincy Prado DO at OR [facility] INSER MARLI CAT,W/O PUMP;5YR/OLD N/A 11/04/2019 INSERT TUNNELED CENTRAL VENOUS CATHETER AGE 5 OR OLDER performed by Ortega Montez DO at OR [facility] INSER MARLI CAT,W/O PUMP;5YR/OLD Right 03/09/2023 INSERT TUNNELED CENTRAL VENOUS CATHETER AGE 5 OR OLDER performed by Fred Brown MD at [facility] INTRO CATH DIALYSIS CIRCUIT W/TRANSLUM BALLOON ANGIOPLASTY Right 03/09/2023 AV FISTULOGRAM & PERIPHERAL ANGIOPLASTY performed by Fred Brown MD at [facility] LIGATE/CUT OVIDUCT(S) MISCELLANEOUS ORDER ([facility] ONLY) Bilateral Heel surgery MISCELLANEOUS ORDER ([facility] ONLY) Right 3rd toe nerve decompression, Dr. 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 Review of Systems: Constitutional ROS: No change in weight, less [...] Neurologic ROS: No headaches and No seizures + PD Psychiatric ROS: No depression, No anxiety and [...] failure with hypoxia and hypercapnia (HCC) (Primary) Stable currently from respiratory standpoint Continue Breo Ellipita 20/25mcg daily Hypotension, unspecified hypotension type Stable BP's since return Will continue Midrodrine 10mg TID Type 2 DM with hypertension and ESRD on dialysis (HCC) Continue with dialysis three days weekly Follow glucoses as directed Primary parkinsonism Continue Sinemet 25/100mg TID Anemia in end-stage renal disease (HCC) Folllows with nephrology PLAN: reviewed [facility] notes again Continue present medication(s):as ordered. Long Term Home Treatment Given: as above Electronically signed by: Nae Rodriges PA-C Over 45 minutes were spent in this visit more than half the time was spent counselling or coordinating care. documented in this encounter Plan of Treatment Upcoming Encounters Date Type Department Care Team (Late st Contact Info) Description 06/10/2023 3:00 PM EDT Laboratory Laboratory [address] [place] [phone] [address] [place] [address] 06/16/2023 2:30 PM EDT Office Visit Hematology/Oncology [facility] [address] [place] [phone] Cynthia Gonzalez MD [address] [place] [address] Scheduled Procedures Name Priority Associated Diagnoses Date/Ti [...] hypercapnia (HCC)- Primary Hypotension, unspecified hypotension type Type 2 DM with hypertension and ESRD on dialysis (HCC) Primary parkinsonism Paralysis agitans Anemia in end-stage renal disease (HCC) Anemia in chronic kidney disease documented in this encounter Advance Directives Documents on File Type Date Recorded Patient Rat Culturist Expl anation Power of Building Services Technician 12/16/2018 10:33 AM Nate r of Building Services Technician Latest Code Status on File Code [...] the patient have Health Care Power of Building Services Technician? No Healthcare Agents on File Name Relationship Healthcare Agent Relationshi p Communication Wesley Hassan Spouse Health Care Agent Care Teams Center Specialists Relationship Specialty Start Date End Date Bella Power MD [address] [place] [address] [place] [address] PCP - General Family Medicine 04/02/19 documented as of this encounter
--- OUTSIDE RECORDS SUMMARY | 2023-10-27 21:13 | External Medical Summary | Summary of Care ---
Author Name Unknown Organization [facility] Address [address] [facility] [place] [address] Phone [phone] Care Team Providers Care Compounding And Finishing Supervisor Name Role Phone Bella Power MD Primary Care Prov ider Reason for Visit * Reason Onset Date Comments Precert In Process 05/23/2023 11 SONIA DARDEN Auryxia 1 GM 210 MG(Fe) Oral Tablet Encounter Details Date Type Department Care Team (Late st Contact Info) Description 05/23/2023 Telephone Nephrology, [facility] [address] [place] [address] Erica Tobar MD [address] [place] [address] Precert In Process (11 SONIA DARDEN Auryx... [...] directed. 1 Each 11/27/2018 Active DIURETIC TITRATION PLANIndications:Pamphlet Distributor sandro heart failure with preserved ejection fraction [...] WRAP) 30 g 11 11/09/2022 Active Nystatin 955941 UNIT/GM External Powder (Nystop) Apply topically to [...] encounter Miscellaneous Notes * Telephone Encounter - Stephanie Santillan CPhT [...] serum phosphorus levels.. Prior authorization entered in PromptPA at [facility]# [id number] Please fax to [phone] before 05/24/2023 1200. . Thank you, Stephanie Santillan Hog Worker [facility] ([facility]) (Formerly Telepharmacy) 05/24/2023,9:32 AM * Telephone Encounter - Usha Dotson CPhT - 05/23/2023 4:31 PM EST Patients insurance would like to inform the office that Auryxia 1 GM 210 MG(Fe) Oral Tablet is requiring additional information: see below. Prior authorization entered in PromptPA at [facility]# [id number] Please fax to [phone] before 05/24/23 12pm. After our initial review [...] and fax, as soon as possible, to [phone] Thank you, Usha Dotson CPhT II Print Controller [facility] ([facility]) (Formerly Telepharmacy) 05/23/2023, 4:33 PM documented in this encounter Plan of Treatment Upcoming Encounters Date Type Department Care Team (Late st Contact Info) Description 06/10/2023 3:00 PM EDT Laboratory Laboratory [address] [place] [id number] [place] [address] 06/16/2023 2:30 PM EDT Office Visit Hematology/[place] [address] [id number] Cynthia Gonzalez MD [address] [place] [id number] Scheduled Procedures Name Priority Associated Diagnoses Date/Ti [...] Documents on File Type Date Recorded Patient Supervisor Photostat Expl anation Power of Bailer Tenders Supervisor 12/16/2018 10:33 AM Nate r of Bailer Tenders Supervisor Latest Code Status on File Code [...] the patient have Health Care Power of Bailer Tenders Supervisor? No Healthcare Agents on File Name Relationship Healthcare Agent Relationshi p Communication Wesley Hassan Spouse Health Care Agent Care Teams Compounding And Finishing Supervisor Relationship Specialty Start Date End Date Bella Power MD [address] [place] [address] [place] [id number] PCP - General Family Medicine 04/02/19 documented as of this encounter
--- OUTSIDE RECORDS SUMMARY | 2023-10-27 21:13 | External Medical Summary | Continuity Of Care Document ---
Author Name Unknown Address [address] [place] [address] Organization [facility] ( ) Care Team Providers Care Color Technician Name Role Phone Howie Gilbert Primary Care Provider [phone] Problems Code Description Start Date End Date [...] weight Temperature SpO2 Blood Sugar Pulse Respirations 03909 213 15692 0 68.00 mm[Hg] - Sitting 115.00 mm[Hg] - Sitting 75.00/ min 44790 227 63020 0 52.00 mm[Hg] - Sitting 90.00 mm[Hg] - Sitting 56.00/ min 23614 305 22526 2 221.00 NI 42675 305 41099 0 98.30 Ear 74017 305 56249 3 98.00 Ear 98609 305 94366 3 98.00 Ear 96662 306 08116 2 98.00 Ear 09759 306 35882 2 223.00 NI 22220 306 98622 5 98.20 Ear 01866 307 75241 3 97.80 Oral 92078 307 80830 7 99.10 Oral 26310 307 37089 4 98.90 Oral 84751 307 22090 0 81.00 mm[Hg] - Sitting 133.00 mm[Hg] - Sitting 93.00 % 68.00/ min 20.00/min Immunizations Vaccine Date Status COVID-19 05/24/2020 Completed COVID-19 06/21/2020 Completed COVID-19 01/02/2021 Completed COVID-19 07/23/2021 Completed COVID-19 07/24/2021 Completed COVID-19 01/17/2022 Completed Influenza 01/01/2023 Completed (PCV13)Pneumococcal 10/28/2014 Completed (PPSV23)Pneumococcal 03/22/2016 Completed Shingles 10/23/2011 Completed TDaP 06/27/2009 Completed
[2023-10-27] MEDS: POTASSIUM CHLORIDE CRTAB 20 MEQ TABCR PO STA (21:23)
[2023-10-27] MEDS: ATORVASTATIN 40 MG TAB PO SCH (21:23)
[2023-10-27] MEDS: HEPARIN SOD 5,000 UNIT/0.5 ML VIAL SQ SCH (21:25)
[2023-10-27] MEDS: PANTOprazole 40 MG TAB PO SCH (21:25)
[2023-10-27] MEDS: MELATONIN 3 MG TAB PO SCH (21:25)
[2023-10-27] MEDS: FLUTICASONE/VILANTEROL 200/25MCG 14 PUFFS/INHALER INH SCH (21:26)
[2023-10-27] MEDS: PREGABALIN 100 MG CAP PO SCH (21:28)
[2023-10-28] MEDS: LEVOTHYROXINE SODIUM 125 MCG TABLET PO SCH (05:35)
[2023-10-28 06:27] LABS: Basophils # (auto) 0.12 K/uL (0.00-0.20); Basophils % (auto) 1.1 %; Eosinophils # (auto) 0.68 K/uL (0.00-0.50); Eosinophils % (auto) 6.3 %; Hematocrit (blood only) 36.4 % (37.0-47.0); Immature Granulocytes # (auto) 0.16 K/uL (0.01-0.20); Immature Granulocytes % (auto) 1.5 %; Lymphocytes # (auto) 1.08 K/uL (1.20-3.40); Lymphocytes % (auto) 9.9 %; Mean Corpuscular Hemoglobin 32.6 pg (25.0-34.0); Mean Corpuscular Volume 98.9 fL (80.0-100.0); Mean Platelet Volume 11.1 fL (9.4-12.4); Monocytes # (auto) 0.92 K/uL (0.11-0.59); Monocytes % (auto) 8.5 %; Neutrophils # (auto) 7.91 K/uL (1.40-6.50); Neutrophils % (auto) 72.7 %; Platelet Count 194 K/uL (130-400); RDW Coefficient of Variation 14.3 % (11.5-14.5); RDW Standard Deviation 51.5 fL (36.4-46.3); Red Blood Count 3.68 M/uL (4.20-5.40); White Blood Count 10.87 K/ul (4.8-10.8)
[2023-10-28 06:53] LABS: Calcium 9.9 mg/dl (8.6-10.3); Magnesium 2.1 mg/dl (1.7-2.4); Potassium 3.9 mmol/L (3.5-5.1); Troponin I High Sensitivity 48.3 pg/ml (0-14)
[2023-10-28 07:03] LABS: BUN Creatinine Ratio 7.5 (10-20); Creatinine Clr Calc Pharmacy 8.8 ml/min; Est GFR (African American) 7.2 ml/min; Est GFR (Non-African American) 6.2 ml/min; Phosphorus 7.9 mg/dl (2.5-4.9)
[2023-10-28] MEDS: CHOLECALCIFEROL 25 MCG (1000 UNITS) TAB PO SCH (09:04)
[2023-10-28] MEDS: DOCUSATE SODIUM 100 MG CAP PO SCH (09:04)
[2023-10-28] MEDS: NEPHROCAPS PO SCH (09:04)
[2023-10-28] MEDS: ASPIRIN 81 MG ECTAB PO SCH (09:04)
[2023-10-28] MEDS: SERTRALINE HCL 100 MG TABLET PO SCH (09:05)
--- NOTE | 2023-10-28 10:54 | Electrocardiogram Report ---
Test Reason : Blood Pressure : */* mmHG Vent. Rate : 66 BPM Atrial Rate : 66 BPM P-R Int : 172 ms QRS Dur : 160 ms QT Int : 494 ms P-R-T Axes : 37 43 52 degrees QTcB Int : 517 ms Sinus rhythm with occasional Premature ventricular complexes Left bundle branch block Abnormal ECG When compared with ECG of 27-Oct-2023 11:57, Fusion complexes are no longer Present Premature ventricular complexes are now Present Confirmed by Angel Lopez ([id number]) on 10/28/2023 10:54:27 AM Referred By: Neel Robertson Confirmed By: Angel Lopez
--- NOTE | 2023-10-28 11:31 | Nephrology Consultation ---
Date of Consultation October 28, 2023 Assessment & Plan (1) ESRD (end stage renal disease) on dialysis: Patient with ESRD on dialysis Friday using a left forearm AV fistula. Last dialysis was yesterday. She was brought in with hypotension and altered mental status. Chest x-ray shows cardiomegaly and pulmonary edema. Patient is saturating well on 2 L nasal cannula. Electrolytes are stable. No indication for dialysis today. Will dialyze her tomorrow for 3-1/2 hours -2.5 L. (2) Hypotension: Patient with intradialytic hypotension. Will give midodrine predialysis. History of Present Illness Reason for Consultation: ESRD Requesting Physician: David Ochoa MD Attending Physician: David Ochoa MD History of Present Illness This is 78-year-old female with history of ESRD on dialysis Friday at [facility], DM II, hypothyroidism, COPD, anemia, history of rectal bleeding, at least mild cognitive impairment, Parkinson's disease, RENÉ not adherent w/ CPAP, CAD, stroke, GUZMÁN, HL, chronic ambulatory dysfunction who was admitted with AMS, hypotension at the end of dialysis. Systolic blood pressure was in the 70s. Patient required fluid boluses about 800 mL. She was hypoxic and required BiPAP but now on oxygen nasal cannula. Blood pressure is now in the 110s to 120s systolic. She denies any shortness of breath or leg swelling. Chest x-ray showed cardiomegaly and pulmonary edema. She has a left forearm AV fistula with good bruit. Allergies Allergy/AdvReac Type Severity Reaction Status Date / Time No Known Allergies Allergy Verified 03/05/23 12:17 Home Medications Medication Instructions Recorded Confirmed Type aspirin 81 mg tablet,delayed 162 mg PO QAM 11/15/21 10/27/23 History release atorvastatin 80 mg tablet 80 mg PO QPM 11/15/21 10/27/23 History carbidopa 25 mg-levodopa 100 mg 1 tab PO TIDM 11/15/21 10/27/23 History tablet docusate sodium 100 mg capsule 100 mg PO DAILY 11/15/21 10/27/23 History (Colace) levothyroxine 125 mcg tablet 125 mcg PO QAM 11/15/21 10/27/23 History pregabalin 100 mg capsule 100 mg PO BID 11/15/21 10/27/23 History sertraline 100 mg tablet 100 mg PO DAILY 11/15/21 10/27/23 History pantoprazole 20 mg tablet,delayed 20 mg PO BID 05/23/22 10/27/23 History release epinephrine 0.3 mg/0.3 mL 0.3 mg IM DIRECTED PRN Allergic 09/05/22 10/27/23 History injection, auto-injector (EpiPen) Reaction melatonin 10 mg tablet 10 mg PO HS 09/05/22 10/27/23 History ferric citrate 210 mg iron tablet 420 mg PO TIDM 01/21/23 10/27/23 History (Auryxia) fluticasone furoate 200 1 inh inhalation BID 01/21/23 10/27/23 History mcg-vilanterol 25 mcg/dose inhalation powder (Breo Ellipta) cholecalciferol (vitamin D3) 25 25 mcg PO DAILY 10/27/23 10/27/23 History mcg (1,000 unit) capsule midodrine 5 mg tablet 5 mg PO TID 10/27/23 10/27/23 History vitamin B complex-vitamin C-folic 1 tab PO DAILY 10/27/23 10/27/23 History acid 0.8 mg tablet (Nanci-Samuel) Patient History Medical History Thickened endometrium Acute ischemic stroke NSTEMI (non-ST elevated myocardial infarction) Elevated troponin I level AV fistula R arm Limb alert care status R arm History of recent hospitalization d/c 09/09/22>per medical record, pt sent to ER at [facility] following dialysis for reddened sores on her buttocks. Admitting dx was enterococcus UTI, decubitus ulcer and sacral cellulitis. Difficult intravenous access Black stools Mobility impaired pt non compliant with hx pt treatments / PT IS IN WHEELCHAIR/TOTAL ASSIST Poor short term memory [place] (hard of hearing) COPD (chronic obstructive pulmonary disease) no medications for currently History of stroke 2019- pts spouse poor historian pt denies hx stroke History of anesthesia reaction "hard time waking up" Hx: recurrent pneumonia History of COVID-19 ? early 2021- mild congestion, no hospitalization, no current issues Non-ST elevation HI (NSTEMI) pt spouse not sure/ mild ? remembers something mentioned in hx/ ? details ESRD (end stage renal disease) on dialysis tues, thur & sat ([place]) Aspiration pneumonia HX Morbid obesity Rheumatoid arthritis ? current status/no meds for Chronic diastolic heart failure EF 50% on 01/2020 echo RACHEL (iron deficiency anemia) Subdural hematoma hx fall 2019 - tx to [facility]/no surgical intervention RENÉ on CPAP Depression Meniere's disease Generalized anxiety disorder Dyslipidemia Restless leg syndrome Diabetes mellitus, type II hx / NO MEDS HTN (hypertension) Surgical History Hx of arteriovenostomy for renal dialysis right arm History of tubal ligation History of carpal tunnel surgery B/L History of orthopedic surgery " bilat heel surgery" H/O sinus surgery Hx of total knee arthroplasty B/L Family History Other AAA (abdominal aortic aneurysm) Diabetes Family history non-contributory Hypertension Myotonic dystrophy Social History Smoking Status: Unknown if ever smoked Tobacco Type: Cigarettes Cigarettes Per Day: 0.25ppd; Second Hand Exposure: No; Do You Dip or Chew Tobacco: No; Hx Alcohol Use: No Hx Substance Use: No Preferred Language: Macedonian Communication Ability: Effective Communication Ability Comment: pt sometimes has difficulty understanding things, is POA Pre Certification Specialist Required: No Beliefs That Will Affect Care: None marital status: Current Living Situation: [facility] Current Living Situation Comment: Lives at home with , bed bound Feels Safe at Home: Yes Assistive Devices: CPAP Review of Systems 2 Review of Systems: All other systems were reviewed and negative except as noted in HPI Physical Exam 2 Physical Exam: General exam: Appears comfortable, no acute distress HEENT: Pupils are equal and reactive to light Neck: No JVD, neck is supple trachea is midline Respiratory system: Clear breath sounds bilaterally. Gastrointestinal: Abdomen is soft, non distended, non tender, bowel sounds are present CVS: Regular rate and rhythm. No murmurs, rubs or gallops Musculoskeletal: No joint or muscle tenderness Extremities: Non tender, no edema, peripheral pulses are present Neuro: Oriented, no tremors, no focal neurological deficits Skin: No rashes access: left forearm AVF Results & Data Vital Signs (Past 12 Hours) Vital Signs Temp Pulse Pulse Resp BP Pulse Ox O2 Del Method 10/28/23 10:34 36.8 C 55 L 17 113/55 L 92 Nasal Cannula 10/28/23 09:46 66 10/28/23 08:00 Nasal Cannula 10/28/23 07:44 36.5 C 57 L 20 128/55 L 91 Nasal Cannula 10/28/23 02:43 36.6 C 56 L 20 161/58 H 95 Nasal Cannula O2 Flow Rate 10/28/23 10:34 2 10/28/23 09:46 10/28/23 08:00 2 10/28/23 07:44 10/28/23 02:43 2 Laboratory Results 10/28/23 05:40 10/27/23 10/28/23 12:05 05:40 WBC 11.73 H 10.87 H RBC 3.70 L 3.68 L MCV 97.0 98.9 MCH 33.0 32.6 MCHC 34.0 33.0 RDW Std Deviation 51.0 H 51.5 H RDW Coeff of Bhavin 14.4 14.3 Plt Count 206 194 MPV 10.6 11.1 Phosphorus 7.9 H Albumin 4.4 (2) Hypotension Hypotension type: unspecified hypotension type Qualified Code(s): I95.9 - Hypotension, unspecified
--- NOTE | 2023-10-28 13:01 | Hospitalist Progress Note ---
Date of Service October 28, 2023 Assessment & Plan (1) Sinus bradycardia: Plan: This is a 78 y/o female with ESRD on HD, COPD, on 3L O2 chronically, hypothyroidism, Parkinson disease, diet-controlled DM2, RENÉ, chronic anemia, LBBB, and other history as outlined below who presented to the ED 10/26 from dialysis with confusion and hypotension. BP somewhat improved with IVF but en route pt noted to have bradycardic into the 30s so given atropine 0.5 mg with improvement in rate. Mental status now back to baseline at ED. Pt does have a history of LBBB, frequent PVCs, and episodic bradycardia and was seen by cardiology but it was thought that pacemaker would not improve her symptoms at that time. Recent unresponsive episode at [facility] noted in September. - Admitted to PCU - monitor for additional episodes of bradycardia - Consult cardiology for additional recommendations - currently rates in 50s to 60s. - EKG w/ sinus rythm and pvcs. - Trop chronically elevated given ESRD on HD. pt w/ no chest pain. - Cardio consult, await recs. (2) Hypotension: Plan: Started on midodrine during last admission Will continue for now (3) Confusion: Plan: Suspect multi-factorial due to episode of hypotension, possibly due to bradycardia down to the 30s (responded to atropine) Now back to baseline mental status Infectious w/u pending - blood and urine cultures collected - no growth so far. Holding empiric antibiotics for now - afebrile, no localizing signs of infection. please send her hematology qualifies (4) ESRD (end stage renal disease) on dialysis: Plan: Chronic, on HD 3x/week Nephrology for assistance with dialysis (5) Elevated troponin: Plan: Likely due to underlying renal insufficiency, flat trend. no chest pain per pt. (6) Parkinson disease: Plan: Chronic, stable Continue Sinemet (7) RENÉ (obstructive sleep apnea): Plan: Chronic, stable HS CPAP ordered (8) Hypothyroidism: Plan: Chronic, TSH wnl. Continue levothyroxine Plan Code status: Full code DVT Prophylaxis: SubQ heparin Admit to PCU Admission and Anticipated Discharge Date Admission Date: October 27, 2023 Subjective Patient was seen and examined at bedside. Patient was sleeping, woke up to exam, oriented. Patient reports eating okay, reports moving bowels okay. Patient denies any chest pain or palpitation. Physical Exam Physical Exam: General: awake, alart, NAD, On 2 L oxygen via nasal cannula HEENT: no sclera icterus, moist oral mucosa Neck: trachea midline Heart: RRR Lungs: CTA bilaterally Abdomen: soft, +BS Extremities: no pedal edema Skin: warm, dry, no jaundice Neurologic: moving all extremities, no focal deficits Results & Data Results & Data Vital Signs (Past 12 Hours) Vital Signs Temp Pulse Pulse Resp BP Pulse Ox O2 Del Method 10/28/23 10:34 36.8 C 55 L 17 113/55 L 92 Nasal Cannula 10/28/23 09:46 66 10/28/23 08:00 Nasal Cannula 10/28/23 07:44 36.5 C 57 L 20 128/55 L 91 Nasal Cannula 10/28/23 02:43 36.6 C 56 L 20 161/58 H 95 Nasal Cannula O2 Flow Rate 10/28/23 10:34 2 10/28/23 09:46 10/28/23 08:00 2 10/28/23 07:44 10/28/23 02:43 2 (2) Hypotension Hypotension type: unspecified hypotension type Qualified Code(s): I95.9 - Hypotension, unspecified (6) Parkinson disease Dyskinesia presence: unspecified whether dyskinesia Fluctuating manifesta tions: unspecified whether manifestations fluctuate Qualified Code(s): G20.A1 - Parkinson's disease without dyskinesia, without mention of fluctuations (8) Hypothyroidism Hypothyroidism type: unspecified Qualified Code(s): E03.9 - Hypothyroidism, unspecified
--- NOTE | 2023-10-28 13:01 | Cardiology Consultation ---
Date of Consultation October 28, 2023 Assessment & Plan (1) Sinus bradycardia: (2) Hypotension: (3) Confusion: (4) LBBB (left bundle branch block): (5) ESRD (end stage renal disease) on dialysis: (6) RENÉ (obstructive sleep apnea): Plan Complex 78-year-old female observed to be hypotensive and intermittently bradycardia during dialysis with associated worsening baseline confusion. Patient received IV fluids and IV atropine. No arrhythmias on telemetry since presentation. Prior history of complex ventricular ectopy Recommendations: Suspect bradycardia reflected under sensed ventricular ectopy. Currently no arrhythmias on telemetry. No indications for pacemaker Chronic troponin elevation noted without evolution or peak to suggest injury or ischemia LV systolic function preserved on last echocardiogram May 2023 Will observe during next dialysis hospital Recommend reducing sertraline dosing History of Present Illness Reason for Consultation: Bradycardia, dialysis intolerant Requesting Physician: Dr. Ochoa Attending Physician: David Ochoa MD History of Present Illness Patient is a complex 78-year-old female with underlying medical issues which include 1. Diastolic dysfunction with normal LV systolic function 2. Obstructive sleep apnea/hypoventilation 3. Chronic left bundle branch block/sinus bradycardia 4. Chronic ventricular ectopy 5. Parkinson's disease with associated dementia 6. End-stage renal disease on chronic hemodialysis, indwelling right brachial AV fistula Patient is a 78-year-old female resident of [facility] who presented on referral from dialysis where patient was noted initially to be hypotensive and possibly bradycardic with frequent ventricular ectopy. Patient treated with IV atropine and fluids and route to hospital. Currently without any recollection of the event Denies any chest pains or shortness of breath Cooperating with staff. Telemetry without arrhythmia with sinus rhythm with left bundle branch block and rare ventricular ectopy no pauses or profound bradycardia arrhythmia Allergies Allergy/AdvReac Type Severity Reaction Status Date / Time No Known Allergies Allergy Verified 03/05/23 12:17 Home Medications Medication Instructions Recorded Confirmed Type aspirin 81 mg tablet,delayed 162 mg PO QAM 11/15/21 10/27/23 History release atorvastatin 80 mg tablet 80 mg PO QPM 11/15/21 10/27/23 History carbidopa 25 mg-levodopa 100 mg 1 tab PO TIDM 11/15/21 10/27/23 History tablet docusate sodium 100 mg capsule 100 mg PO DAILY 11/15/21 10/27/23 History (Colace) levothyroxine 125 mcg tablet 125 mcg PO QAM 11/15/21 10/27/23 History pregabalin 100 mg capsule 100 mg PO BID 11/15/21 10/27/23 History sertraline 100 mg tablet 100 mg PO DAILY 11/15/21 10/27/23 History pantoprazole 20 mg tablet,delayed 20 mg PO BID 05/23/22 10/27/23 History release epinephrine 0.3 mg/0.3 mL 0.3 mg IM DIRECTED PRN Allergic 09/05/22 10/27/23 History injection, auto-injector (EpiPen) Reaction melatonin 10 mg tablet 10 mg PO HS 09/05/22 10/27/23 History ferric citrate 210 mg iron tablet 420 mg PO TIDM 01/21/23 10/27/23 History (Auryxia) fluticasone furoate 200 1 inh inhalation BID 01/21/23 10/27/23 History mcg-vilanterol 25 mcg/dose inhalation powder (Breo Ellipta) cholecalciferol (vitamin D3) 25 25 mcg PO DAILY 10/27/23 10/27/23 History mcg (1,000 unit) capsule midodrine 5 mg tablet 5 mg PO TID 10/27/23 10/27/23 History vitamin B complex-vitamin C-folic 1 tab PO DAILY 10/27/23 10/27/23 History acid 0.8 mg tablet (Nanci-Sameul) Patient History Medical History Thickened endometrium Acute ischemic stroke NSTEMI (non-ST elevated myocardial infarction) Elevated troponin I level AV fistula R arm Limb alert care status R arm History of recent hospitalization d/c 09/09/22>per medical record, pt sent to ER at [facility] following dialysis for reddened sores on her buttocks. Admitting dx was enterococcus UTI, decubitus ulcer and sacral cellulitis. Difficult intravenous access Black stools Mobility impaired pt non compliant with hx pt treatments / PT IS IN WHEELCHAIR/TOTAL ASSIST Poor short term memory [place] (hard of hearing) COPD (chronic obstructive pulmonary disease) no medications for currently History of stroke 2020- pts spouse poor historian pt denies hx stroke History of anesthesia reaction "hard time waking up" Hx: recurrent pneumonia History of COVID-19 ? early 2021- mild congestion, no hospitalization, no current issues Non-ST elevation NV (NSTEMI) pt spouse not sure/ mild ? remembers something mentioned in hx/ ? details ESRD (end stage renal disease) on dialysis tues, thur & sat ([place]) Aspiration pneumonia HX Morbid obesity Rheumatoid arthritis ? current status/no meds for Chronic diastolic heart failure EF 50% on 01/2020 echo RACHEL (iron deficiency anemia) Subdural hematoma hx fall 2019 - tx to [facility]/no surgical intervention RENÉ on CPAP Depression Meniere's disease Generalized anxiety disorder Dyslipidemia Restless leg syndrome Diabetes mellitus, type II hx / NO MEDS HTN (hypertension) Surgical History Hx of arteriovenostomy for renal dialysis right arm History of tubal ligation History of carpal tunnel surgery B/L History of orthopedic surgery " bilat heel surgery" H/O sinus surgery Hx of total knee arthroplasty B/L Family History Other AAA (abdominal aortic aneurysm) Diabetes Family history non-contributory Hypertension Myotonic dystrophy Social History Smoking Status: Unknown if ever smoked Tobacco Type: Cigarettes Cigarettes Per Day: 0.25ppd; Second Hand Exposure: No; Do You Dip or Chew Tobacco: No; Hx Alcohol Use: No Hx Substance Use: No Preferred Language: Hong Konger Communication Ability: Effective Communication Ability Comment: pt sometimes has difficulty understanding things, is POA Machine Lead Burner Required: No Beliefs That Will Affect Care: None marital status: Current Living Situation: Custodial Current Living Situation Comment: Lives at home with , bed bound Feels Safe at Home: Yes Assistive Devices: CPAP Review of Systems Review of Systems: All systems reviewed & are unremarkable except as noted in HPI & below Physical Exam Constitutional: + obese; no acute distress Eyes: PERRL, conjunctivae normal, anicteric sclerae ENMT: external ear and nose normal, oropharynx normal Neck: trachea midline, no thyromegaly Respiratory: no respiratory distress Auscultation: lungs clear to auscultation bilaterally and + diminished lung sounds Cardiovascular: Rate/Rhythm: regular rate and regular rhythm Heart Sounds: normal S1 and normal S2 Vessels: normal carotid upstroke Extremities: + AV fistula (Right brachial) Gastrointestinal (Abdomen): normal bowel sounds, soft, nontender, no hepatosplenomegaly Musculoskeletal: no cyanosis or clubbing, extremities motor strength 5/5 Results & Data Vital Signs (Past 12 Hours) Vital Signs Temp Pulse Pulse Resp BP Pulse Ox O2 Del Method 10/28/23 10:34 36.8 C 55 L 17 113/55 L 92 Nasal Cannula 10/28/23 09:46 66 10/28/23 08:00 Nasal Cannula 10/28/23 07:44 36.5 C 57 L 20 128/55 L 91 Nasal Cannula 10/28/23 02:43 36.6 C 56 L 20 161/58 H 95 Nasal Cannula O2 Flow Rate 10/28/23 10:34 2 10/28/23 09:46 10/28/23 08:00 2 10/28/23 07:44 10/28/23 02:43 2 Laboratory Results Laboratory Results - last 24 hr 10/27/23 10/27/23 10/27/23 13:00 13:20 13:58 WBC RBC Hgb Hct MCV MCH MCHC RDW Std Deviation RDW Coeff of Bhavin Plt Count MPV Immature Gran % (Auto) Neut % (Auto) Lymph % (Auto) [place] % (Auto) Eos % (Auto) Baso % (Auto) Neut # (Auto) Lymph # (Auto) [place] # (Auto) Eos # (Auto) Baso # (Auto) Immature Gran # (Auto) PT 9.8 INR 0.9 Sodium Potassium Chloride Carbon Dioxide Anion Gap BUN Creatinine Est Cr Clr Drug Dosing Est GFR ( Amer) Est GFR (Non-Af Amer) BUN/Creatinine Ratio Glucose Calcium Phosphorus Magnesium Troponin I High Sens TSH Random Cortisol Urine Color Lashonda Urine Appearance Cloudy A Urine pH 8.5 H Ur Specific Catarina 1.020 Urine Protein 3+ H Urine Glucose (UA) Negative Urine Ketones Negative Urine Blood 3+ H Urine Nitrite Negative Urine Bilirubin 1+ H Urine Urobilinogen Negative Ur Leukocyte Esterase Trace H Urine RBC >20 H Urine WBC 21-50 H Ur Epithelial Cells >20 H Ur Renal Epithelial Cell Present A Urine Bacteria 1+ H Nasal Screen MRSA (PCR) SARS-CoV-2, RNA, NAAT NEGATIVE 08/03/0910/27/23 10/27/23 14:15 16:45 21:15 WBC RBC Hgb Hct MCV MCH MCHC RDW Std Deviation RDW Coeff of Bhavin Plt Count MPV Immature Gran % (Auto) Neut % (Auto) Lymph % (Auto) [place] % (Auto) Eos % (Auto) Baso % (Auto) Neut # (Auto) Lymph # (Auto) [place] # (Auto) Eos # (Auto) Baso # (Auto) Immature Gran # (Auto) PT INR Sodium Potassium Chloride Carbon Dioxide Anion Gap BUN Creatinine Est Cr Clr Drug Dosing Est GFR ( Amer) Est GFR (Non-Af Amer) BUN/Creatinine Ratio Glucose Calcium Phosphorus Magnesium Troponin I High Sens 33.5 H 43.4 H TSH 3.180 Random Cortisol 13.39 Urine Color Urine Appearance Urine pH Ur Specific Catarina Urine Protein Urine Glucose (UA) Urine Ketones Urine Blood Urine Nitrite Urine Bilirubin Urine Urobilinogen Ur Leukocyte Esterase Urine RBC Urine WBC Ur Epithelial Cells Ur Renal Epithelial Cell Urine Bacteria Nasal Screen MRSA (PCR) Positive A SARS-CoV-2, RNA, NAAT 10/28/23 05:40 WBC 10.87 H RBC 3.68 L Hgb 12.0 Hct 36.4 L MCV 98.9 MCH 32.6 MCHC 33.0 RDW Std Deviation 51.5 H RDW Coeff of Bhavin 14.3 Plt Count 194 MPV 11.1 Immature Gran % (Auto) 1.5 Neut % (Auto) 72.7 Lymph % (Auto) 9.9 [place] % (Auto) 8.5 Eos % (Auto) 6.3 Baso % (Auto) 1.1 Neut # (Auto) 7.91 H Lymph # (Auto) 1.08 L [place] # (Auto) 0.92 H Eos # (Auto) 0.68 H Baso # (Auto) 0.12 Immature Gran # (Auto) 0.16 PT INR Sodium 135 L Potassium 3.9 D Chloride 94 L Carbon Dioxide 24 Anion Gap 17 H BUN 45 H Creatinine 6.03 H* D Est Cr Clr Drug Dosing 8.8 Est GFR ( Amer) 7.2 Est GFR (Non-Af Amer) 6.2 BUN/Creatinine Ratio 7.5 L Glucose 113 H Calcium 9.9 Phosphorus 7.9 H Magnesium 2.1 Troponin I High Sens 48.3 H TSH Random Cortisol Urine Color Urine Appearance Urine pH Ur Specific Catarina Urine Protein Urine Glucose (UA) Urine Ketones Urine Blood Urine Nitrite Urine Bilirubin Urine Urobilinogen Ur Leukocyte Esterase Urine RBC Urine WBC Ur Epithelial Cells Ur Renal Epithelial Cell Urine Bacteria Nasal Screen MRSA (PCR) SARS-CoV-2, RNA, NAAT (2) Hypotension Hypotension type: unspecified hypotension type Qualified Code(s): I95.9 - Hypotension, unspecified
[2023-10-29 06:56] LABS: Hematocrit (blood only) 34.7 % (37.0-47.0); Hemoglobin 11.6 g/dl (12.0-16.0); Mean Corpuscular Hemoglobin 32.3 pg (25.0-34.0); Mean Corpuscular Hgb Conc 33.4 g/dL (32.0-36.0); Mean Corpuscular Volume 96.7 fL (80.0-100.0); Mean Platelet Volume 10.8 fL (9.4-12.4); Platelet Count 201 K/uL (130-400); RDW Coefficient of Variation 14.1 % (11.5-14.5); RDW Standard Deviation 49.1 fL (36.4-46.3); Red Blood Count 3.59 M/uL (4.20-5.40); White Blood Count 10.42 K/ul (4.8-10.8)
[2023-10-29] MEDS ORDERED: SODIUM CHLORIDE 0.9% 1,000 ML IV PRN (07:00)
[2023-10-29 07:24] LABS: BUN Creatinine Ratio 8.4 (10-20); Calcium 9.5 mg/dl (8.6-10.3); Creatinine Clr Calc Pharmacy 7.3 ml/min; Est GFR (African American) 5.1 ml/min; Est GFR (Non-African American) 4.4 ml/min; Magnesium 2.2 mg/dl (1.7-2.4); Phosphorus 10.7 mg/dl (2.5-4.9); Potassium 4.3 mmol/L (3.5-5.1)
--- NOTE | 2023-10-29 11:30 | Nephrology Progress Note ---
Date of Service October 29, 2023 Assessment & Plan (1) ESRD (end stage renal disease) on dialysis: Plan: Patient with ESRD on dialysis Friday using a left forearm AV fistula. Last dialysis was Friday. She was brought in with hypotension and altered mental status. Chest x-ray shows cardiomegaly and pulmonary edema. Patient is saturating well on 2 L nasal cannula. Electrolytes are stable. She is tolerating dialysis well today for 3-1/2 hours -2.5 L. (2) Hypotension: Plan: Patient with intradialytic hypotension. Will give an additional 5 mg of midodrine intra-dialysis. Admission and Anticipated Discharge Date Admission Date: October 27, 2023 Subjective Seen for ESRD. Patient was seen and examined while on dialysis. No shortness of breath or leg swelling. No nausea or vomiting. Blood pressure is on the lower side. Review of Systems 2 Review of Systems: All other systems were reviewed and negative except as noted in HPI Physical Exam 2 Physical Exam: General exam: Appears comfortable, no acute distress HEENT: Pupils are equal and reactive to light Neck: No JVD, neck is supple trachea is midline Respiratory system: Clear breath sounds bilaterally. Gastrointestinal: Abdomen is soft, non distended, non tender, bowel sounds are present CVS: Regular rate and rhythm. No murmurs, rubs or gallops Musculoskeletal: No joint or muscle tenderness Extremities: Non tender, no edema, peripheral pulses are present Neuro: Oriented, no tremors, no focal neurological deficits Skin: No rashes access: left forearm AVF Results & Data Vital Signs (Past 12 Hours) Vital Signs Temp Pulse Pulse Resp BP Pulse Ox O2 Del Method 10/29/23 08:00 55 L 10/29/23 07:46 36.9 C 62 18 108/52 L 96 Nasal Cannula 10/29/23 03:05 36.8 C 55 L 20 125/66 96 Nasal Cannula O2 Flow Rate 10/29/23 08:00 10/29/23 07:46 1 10/29/23 03:05 2 Laboratory Results 10/29/23 06:22 10/29/23 06:22 WBC 10.42 RBC 3.59 L MCV 96.7 MCH 32.3 MCHC 33.4 RDW Std Deviation 49.1 H RDW Coeff of Bhavin 14.1 Plt Count 201 MPV 10.8 Phosphorus 10.7 H (2) Hypotension Hypotension type: unspecified hypotension type Qualified Code(s): I95.9 - Hypotension, unspecified
--- NOTE | 2023-10-29 11:43 | Cardiology Progress Note ---
Date of Service October 29, 2023 Assessment & Plan (1) Sinus bradycardia: (2) Hypotension: (3) Confusion: (4) LBBB (left bundle branch block): (5) ESRD (end stage renal disease) on dialysis: (6) RENÉ (obstructive sleep apnea): Plan Complex 78-year-old female observed to be hypotensive and intermittently bradycardia during dialysis with associated worsening baseline confusion. Patient received IV fluids and IV atropine. No arrhythmias on telemetry since presentation. Prior history of complex ventricular ectopy Recommendations: Suspect bradycardia reflected under sensed ventricular ectopy. Currently no arrhythmias on telemetry. No indications for pacemaker Chronic troponin elevation noted without evolution or peak to suggest injury or ischemia LV systolic function preserved on last echocardiogram May 2023 Will observe during next dialysis hospital Recommend reducing sertraline dosing 10/29/2023 No cardiac complaints today. Telemetry overnight with sinus and sinus bradycardia with ventricular ectopy only. No pauses or arrhythmias. Patient to have dialysis today. Recommend EKG with acute difficulties No other recommendations on medication changes Admission and Anticipated Discharge Date Admission Date: October 27, 2023 Subjective Patient seen and examined, chart, medications, telemetry reviewed. Patient very hard of hearing but responds to questioning. No cardiac complaint Telemetry with sinus and sinus bradycardia with occasional ventricular ectopic beats. No pauses or profound bradycardia arrhythmias Anticipates dialysis later today Review of Systems Review of Systems: All systems reviewed & are unremarkable except as noted in Subjective Physical Exam Constitutional: + obese; no acute distress Eyes: PERRL, conjunctivae normal, anicteric sclerae ENMT: external ear and nose normal, oropharynx normal Neck: trachea midline, no thyromegaly Respiratory: no respiratory distress Auscultation: lungs clear to auscultation bilaterally and + diminished lung sounds Cardiovascular: Rate/Rhythm: regular rate and regular rhythm Heart Sounds: normal S1 and normal S2 Vessels: normal carotid upstroke Extremities: + AV fistula (Right brachial) Gastrointestinal (Abdomen): normal bowel sounds, soft, nontender, no hepatosplenomegaly Musculoskeletal: no cyanosis or clubbing, extremities motor strength 5/5 Results & Data Vital Signs (Past 12 Hours) Vital Signs Temp Pulse Pulse Resp BP Pulse Ox O2 Del Method 10/29/23 08:00 55 L 10/29/23 07:46 36.9 C 62 18 108/52 L 96 Nasal Cannula 10/29/23 03:05 36.8 C 55 L 20 125/66 96 Nasal Cannula O2 Flow Rate 10/29/23 08:00 10/29/23 07:46 1 10/29/23 03:05 2 Laboratory Results Laboratory Results - last 24 hr 10/29/23 06:22 WBC 10.42 RBC 3.59 L Hgb 11.6 L Hct 34.7 L MCV 96.7 MCH 32.3 MCHC 33.4 RDW Std Deviation 49.1 H RDW Coeff of Bhavin 14.1 Plt Count 201 MPV 10.8 Sodium 136 Potassium 4.3 Chloride 94 L Carbon Dioxide 25 Anion Gap 17 H BUN 67 H D Creatinine 7.99 H* D Est Cr Clr Drug Dosing 7.3 Est GFR ( Amer) 5.1 Est GFR (Non-Af Amer) 4.4 BUN/Creatinine Ratio 8.4 L Glucose 106 H Calcium 9.5 Phosphorus 10.7 H Magnesium 2.2 (2) Hypotension Hypotension type: unspecified hypotension type Qualified Code(s): I95.9 - Hypotension, unspecified
[2023-10-29] MEDS: MIDODRINE HCL 2.5 MG TAB PO STA (11:57)
[2023-10-29] MEDS: HEPARIN SOD (PORCINE) 1000 UNIT/ML IV ONE (13:26)
[2023-10-29] MEDS: HEPARIN SOD (PORCINE) 1000 UNIT/ML IV SCH (13:27)
--- NOTE | 2023-10-29 14:24 | Hospitalist Progress Note ---
Date of Service October 29, 2023 Assessment & Plan (1) Sinus bradycardia: Plan: This is a 78 y/o female with ESRD on HD, COPD, on 3L O2 chronically, hypothyroidism, Parkinson disease, diet-controlled DM2, RENÉ, chronic anemia, LBBB, and other history as outlined below who presented to the ED 10/26 from dialysis with confusion and hypotension. BP somewhat improved with IVF but en route pt noted to have bradycardic into the 30s so given atropine 0.5 mg with improvement in rate. Mental status now back to baseline at ED. Pt does have a history of LBBB, frequent PVCs, and episodic bradycardia and was seen by cardiology but it was thought that pacemaker would not improve her symptoms at that time. Recent unresponsive episode at [facility] noted in September. - Admitted to PCU - monitor for additional episodes of bradycardia - Consult cardiology for additional recommendations - currently rates in 50s to 60s. - EKG w/ sinus rythm and pvcs. - Trop chronically elevated given ESRD on HD. pt w/ no chest pain. -Appreciate cardiology input and recommendation No evidence of significant bradyarrhythmias Will observe for any more bradycardia and hypotension during dialysis Likely discharge tomorrow if remains hemodynamically stable (2) Hypotension: Plan: Started on midodrine during last admission Will continue for now (3) Confusion: Plan: Suspect multi-factorial due to episode of hypotension, possibly due to bradycardia down to the 30s (responded to atropine) Now back to baseline mental status Infectious w/u pending - blood and urine cultures collected - no growth so far. Holding empiric antibiotics for now - afebrile, no localizing signs of infection. please send her hematology qualifies Remains hemodynamically stable Drowsy but no other acute symptoms (4) ESRD (end stage renal disease) on dialysis: Plan: Chronic, on HD 3x/week Nephrology for assistance with dialysis (5) Elevated troponin: Plan: Likely due to underlying renal insufficiency, flat trend. no chest pain per pt. (6) Parkinson disease: Plan: Chronic, stable Continue Sinemet (7) RENÉ (obstructive sleep apnea): Plan: Chronic, stable HS CPAP ordered (8) Hypothyroidism: Plan: Chronic, TSH wnl. Continue levothyroxine Plan Code status: Full code DVT Prophylaxis: SubQ heparin Admit to PCU Admission and Anticipated Discharge Date Admission Date: October 27, 2023 Subjective 10/29/2023 The patient was seen and examined in telemetry unit She has been generally weak and a little drowsy today Denies any significant symptoms No significant bradycardia arrhythmia noted on monitor Review of Systems Review of Systems: All systems reviewed and are unremarkable except as noted below Physical Exam Physical Exam: Lying in bed without any acute distress Constitutional: well developed, well nourished, + ill appearing and + obese Eyes: PERRL, conjunctivae normal, anicteric sclerae ENMT: external ear and nose normal, oropharynx normal Neck: trachea midline, no thyromegaly Respiratory: no respiratory distress Auscultation: + diminished lung sounds and + crackles (Minimal bibasilar crackles) Cardiovascular: Rate/Rhythm: regular rate, regular rhythm and + bradycardic Heart Sounds: normal S1 and normal S2; no murmur Extremities: + edema (Trace edema bilaterally) Gastrointestinal (Abdomen): Inspection/Auscultation: normal bowel sounds; abdomen not distended Percussion/Palpation: abdomen soft; abdomen nontender Musculoskeletal: No acute arthritis involving any of the joint Neurologic: normal touch/pain/proprioception and moves all extremities; no focal motor deficits Alert, awake and oriented x 3. Generally very weak and lethargic Lymphatic: no cervical or axillary lymphadenopathy Results & Data Results & Data Vital Signs (Past 12 Hours) Vital Signs Temp Pulse Pulse Pulse Resp BP BP 10/29/23 14:00 56 L 107/44 L 10/29/23 13:30 51 L 107/68 10/29/23 13:00 54 L 85/34 L 10/29/23 12:30 69 106/47 L 10/29/23 12:00 57 L 123/70 10/29/23 11:30 68 125/68 10/29/23 11:00 57 L 95/58 L 10/29/23 10:24 36.7 C 56 L 10/29/23 08:00 55 L 10/29/23 07:46 36.9 C 62 18 108/52 L 10/29/23 03:05 36.8 C 55 L 20 125/66 Pulse Ox O2 Del Method O2 Flow Rate 10/29/23 14:00 10/29/23 13:30 10/29/23 13:00 10/29/23 12:30 10/29/23 12:00 10/29/23 11:30 10/29/23 11:00 10/29/23 10:24 10/29/23 08:00 10/29/23 07:46 96 Nasal Cannula 1 10/29/23 03:05 96 Nasal Cannula 2 Laboratory Results Short CBC 10/29/23 Range/Units 06:22 WBC 10.42 (4.8-10.8) K/ul Hgb 11.6 L (12.0-16.0) g/dl Hct 34.7 L (37.0-47.0) % Plt Count 201 (130-400) K/uL BMP 10/29/23 06:22 Sodium 136 Potassium 4.3 Chloride 94 L Carbon Dioxide 25 BUN 67 H D Creatinine 7.99 H* D Glucose 106 H Calcium 9.5 Medications Administered Current Inpatient Medications Acetaminophen (Acetaminophen 325 Mg Tab) 650 mg PO Q4H PRN PRN Reason: Pain or Fever Stop: 11/26/23 15:42 Aspirin (Aspirin 81 Mg Ectab) 162 mg PO QAM BAYRON Stop: 11/27/23 08:59 Last Admin: 10/29/23 08:22 Dose: 162 mg Atorvastatin Calcium (Atorvastatin 40 Mg Tab) 80 mg PO QPM BAYRON Stop: 11/26/23 20:59 Last Admin: 10/28/23 21:45 Dose: 80 mg Carbidopa/Levodopa (Carbidopa/Levodopa 25/100mg Tab) 1 tab PO TIDM BAYRON Stop: 11/26/23 16:59 Last Admin: 10/29/23 08:21 Dose: 1 tab Docusate Sodium (Docusate Sodium 100 Mg Cap) 100 mg PO DAILY BAYRON Stop: 11/27/23 08:59 Last Admin: 10/29/23 08:23 Dose: 100 mg Fluticasone/Vilanterol (Fluticasone/Vilanterol 200/25mcg 14 Puffs/Inhaler) 1 puffs INH BID BAYRON Stop: 11/26/23 20:59 Last Admin: 10/29/23 08:23 Dose: 1 puffs Heparin Sodium (Porcine) (Heparin Sod 5,000 Unit/0.5 Ml Vial) 5,000 units SQ Q12 BAYRON Stop: 11/26/23 20:59 Last Admin: 10/29/23 08:23 Dose: Not Given Levothyroxine Sodium (Levothyroxine Sodium 125 Mcg Tablet) 125 mcg PO DAILYBB BAYRON Stop: 11/27/23 06:29 Last Admin: 10/29/23 05:25 Dose: 125 mcg Melatonin (Melatonin 3 Mg Tab) 9 mg PO HS BAYRON Stop: 11/26/23 20:59 Last Admin: 10/28/23 21:45 Dose: 9 mg Midodrine (Midodrine Hcl 2.5 Mg Tab) 5 mg PO TID@0800,1200,1700 BAYRON Stop: 11/26/23 16:59 Last Admin: 10/29/23 08:21 Dose: 5 mg Miscellaneous (Ferric Citrate [Auryxia] 210 Mg Iron Tablet) ~ Order Awaiting Action) 1 each N/A QS BAYRON Stop: 11/26/23 15:59 Last Admin: 10/29/23 08:22 Dose: Not Given Pantoprazole Sodium (Pantoprazole 40 Mg Tab) 40 mg PO BID BAYRON Stop: 11/26/23 20:59 Last Admin: 10/29/23 08:24 Dose: 40 mg Pregabalin (Pregabalin 100 Mg Cap) 100 mg PO BID BAYRON Stop: 11/26/23 20:59 Last Admin: 10/29/23 08:26 Dose: 100 mg Sertraline HCl (Sertraline Hcl 100 Mg Tablet) 100 mg PO DAILY BAYRON Stop: 11/27/23 08:59 Last Admin: 10/29/23 08:24 Dose: 100 mg Vitamin B Complex/Folic Acid (Nephrocaps) 1 cap PO DAILY BAYRON Stop: 11/27/23 08:59 Last Admin: 10/29/23 08:24 Dose: 1 cap Vitamin D (Cholecalciferol 25 Mcg (1000 Units) Tab) 25 mcg PO DAILY BAYRON Stop: 11/27/23 08:59 Last Admin: 10/29/23 08:22 Dose: 25 mcg (2) Hypotension Hypotension type: unspecified hypotension type Qualified Code(s): I95.9 - Hypotension, unspecified (6) Parkinson disease Dyskinesia presence: unspecified whether dyskinesia Fluctuating manifestations: unspecified whether manifestations fluctuate Qualified Code(s): G20.A1 - Parkinson's disease without dyskinesia, without mention of fluctuations (8) Hypothyroidism Hypothyroidism type: unspecified Qualified Code(s): E03.9 - Hypothyroidism, unspecified
[2023-10-30 07:37] VITALS: TEMP 97.2
[2023-10-30 08:02] LABS: Basophils # (auto) 0.09 K/uL (0.00-0.20); Eosinophils # (auto) 0.48 K/uL (0.00-0.50); Eosinophils % (auto) 5.1 %; Hematocrit (blood only) 35.6 % (37.0-47.0); Hemoglobin 11.7 g/dl (12.0-16.0); Immature Granulocytes # (auto) 0.17 K/uL (0.01-0.20); Immature Granulocytes % (auto) 1.8 %; Lymphocytes # (auto) 0.96 K/uL (1.20-3.40); Lymphocytes % (auto) 10.2 %; Mean Corpuscular Hemoglobin 32.5 pg (25.0-34.0); Mean Corpuscular Hgb Conc 32.9 g/dL (32.0-36.0); Mean Corpuscular Volume 98.9 fL (80.0-100.0); Mean Platelet Volume 11.1 fL (9.4-12.4); Monocytes # (auto) 0.72 K/uL (0.11-0.59); Monocytes % (auto) 7.6 %; Neutrophils # (auto) 7.01 K/uL (1.40-6.50); Neutrophils % (auto) 74.3 %; Platelet Count 193 K/uL (130-400); Platelet Estimate Normal (Normal); RDW Coefficient of Variation 14.2 % (11.5-14.5); RDW Standard Deviation 51.7 fL (36.4-46.3); White Blood Count 9.43 K/ul (4.8-10.8)
[2023-10-30 08:07] LABS: Calcium 9.9 mg/dl (8.6-10.3); Magnesium 1.9 mg/dl (1.7-2.4)
[2023-10-30 08:19] LABS: BUN Creatinine Ratio 6.1 (10-20); Creatinine Clr Calc Pharmacy 10.5 ml/min; Est GFR (African American) 7.9 ml/min; Est GFR (Non-African American) 6.9 ml/min; Phosphorus 6.3 mg/dl (2.5-4.9)
--- NOTE | 2023-10-30 11:07 | Hospitalist Progress Note ---
Date of Service October 30, 2023 Assessment & Plan (1) Sinus bradycardia: Plan: This is a 78 y/o female with ESRD on HD, COPD, on 3L O2 chronically, hypothyroidism, Parkinson disease, diet-controlled DM2, RENÉ, chronic anemia, LBBB, and other history as outlined below who presented to the ED 10/26 from dialysis with confusion and hypotension. BP somewhat improved with IVF but en route pt noted to have bradycardic into the 30s so given atropine 0.5 mg with improvement in rate. Mental status now back to baseline at ED. Pt does have a history of LBBB, frequent PVCs, and episodic bradycardia and was seen by cardiology but it was thought that pacemaker would not improve her symptoms at that time. Recent unresponsive episode at [facility] noted in September. - Admitted to PCU - monitor for additional episodes of bradycardia - Consult cardiology for additional recommendations - currently rates in 50s to 60s. - EKG w/ sinus rythm and pvcs. - Trop chronically elevated given ESRD on HD. pt w/ no chest pain. -Appreciate cardiology input and recommendation No evidence of significant bradyarrhythmias Will observe for any more bradycardia and hypotension during dialysis Likely discharge tomorrow if remains hemodynamically stable -Remains medically stable, hemodynamically stable without any bradycardia arrhythmias She will be discharged this afternoon (2) Hypotension: Plan: Started on midodrine during last admission Will continue for now No more hypotensive episode (3) Confusion: Plan: Suspect multi-factorial due to episode of hypotension, possibly due to bradycardia down to the 30s (responded to atropine) Now back to baseline mental status Infectious w/u pending - blood and urine cultures collected - no growth so far. Holding empiric antibiotics for now - afebrile, no localizing signs of infection. please send her hematology qualifies Remains hemodynamically stable Drowsy but no other acute symptoms Seems to be at her baseline and confusion is resolved (4) ESRD (end stage renal disease) on dialysis: Plan: Chronic, on HD 3x/week Nephrology for assistance with dialysis Will continue hemodialysis as an outpatient (5) Elevated troponin: Plan: Likely due to underlying renal insufficiency, flat trend. no chest pain per pt. (6) Parkinson disease: Plan: Chronic, stable Continue Sinemet (7) RENÉ (obstructive sleep apnea): Plan: Chronic, stable HS CPAP ordered (8) Hypothyroidism: Plan: Chronic, TSH wnl. Continue levothyroxine Plan Code status: Full code DVT Prophylaxis: SubQ heparin Will be discharged to [facility] this afternoon Admission and Anticipated Discharge Date Admission Date: October 27, 2023 Subjective 10/29/2023 The patient was seen and examined in telemetry unit She has been generally weak and a little drowsy today Denies any significant symptoms No significant bradycardia arrhythmia noted on monitor 10/30/2023 The patient was seen and examined in telemetry unit She has been much better today and has been communicating normally Has had her breakfast and had physical therapy yesterday She will have dialysis tomorrow and discussed with the pharmacist's aide that she can be discharged this afternoon Review of Systems Review of Systems: All systems reviewed and are unremarkable except as noted below Physical Exam Physical Exam: Lying in bed without any acute distress Constitutional: well developed, well nourished, + ill appearing and + obese Eyes: PERRL, conjunctivae normal, anicteric sclerae ENMT: external ear and nose normal, oropharynx normal Neck: trachea midline, no thyromegaly Respiratory: no respiratory distress Auscultation: + diminished lung sounds and + crackles (Minimal bibasilar crackles) Cardiovascular: Rate/Rhythm: regular rate, regular rhythm and + bradycardic Heart Sounds: normal S1 and normal S2; no murmur Extremities: + edema (Trace edema bilaterally) Gastrointestinal (Abdomen): Inspection/Auscultation: normal bowel sounds; abdomen not distended Percussion/Palpation: abdomen soft; abdomen nontender Neurologic: normal touch/pain/proprioception and moves all extremities; no focal motor deficits Lymphatic: no cervical or axillary lymphadenopathy Results & Data Results & Data Vital Signs (Past 12 Hours) Vital Signs Temp Pulse Pulse Resp BP Pulse Ox O2 Del Method 10/30/23 08:00 Nasal Cannula 10/30/23 08:00 61 10/30/23 07:34 36.2 C L 59 L 18 125/71 95 Nasal Cannula 10/30/23 03:09 36.6 C 62 18 152/64 H 96 Nasal Cannula O2 Flow Rate 10/30/23 08:00 2 10/30/23 08:00 10/30/23 07:34 1 10/30/23 03:09 1 Laboratory Results Short CBC 10/30/23 Range/Units 06:30 WBC 9.43 (4.8-10.8) K/ul Hgb 11.7 L (12.0-16.0) g/dl Hct 35.6 L (37.0-47.0) % Plt Count 193 (130-400) K/uL [facility] 10/30/23 06:30 Sodium 133 L Potassium 4.0 Chloride 93 L Carbon Dioxide 26 BUN 34 H D Creatinine 5.54 H* D Glucose 105 H Calcium 9.9 Medications Administered Current Inpatient Medications Acetaminophen (Acetaminophen 325 Mg Tab) 650 mg PO Q4H PRN PRN Reason: Pain or Fever Stop: 11/26/23 15:42 Aspirin (Aspirin 81 Mg Ectab) 162 mg PO QAM [facility] Stop: 11/27/23 08:59 Last Admin: 10/30/23 08:08 Dose: 162 mg Atorvastatin Calcium (Atorvastatin 40 Mg Tab) 80 mg PO QPM [facility] Stop: 11/26/23 20:59 Last Admin: 10/29/23 21:03 Dose: 80 mg Carbidopa/Levodopa (Carbidopa/Levodopa 25/100mg Tab) 1 tab PO TIDM [facility] Stop: 11/26/23 16:59 Last Admin: 10/30/23 08:07 Dose: 1 tab Docusate Sodium (Docusate Sodium 100 Mg Cap) 100 mg PO DAILY [facility] Stop: 11/27/23 08:59 Last Admin: 10/30/23 08:08 Dose: 100 mg Fluticasone/Vilanterol (Fluticasone/Vilanterol 200/25mcg 14 Puffs/Inhaler) 1 puffs INH BID [facility] Stop: 11/26/23 20:59 Last Admin: 10/30/23 08:08 Dose: 1 puffs Heparin Sodium (Porcine) (Heparin Sod 5,000 Unit/0.5 Ml Vial) 5,000 units SQ Q12 [facility] Stop: 11/26/23 20:59 Last Admin: 10/30/23 08:09 Dose: Not Given Levothyroxine Sodium (Levothyroxine Sodium 125 Mcg Tablet) 125 mcg PO DAILYBB [facility] Stop: 11/27/23 06:29 Last Admin: 10/30/23 05:48 Dose: 125 mcg Melatonin (Melatonin 3 Mg Tab) 9 mg PO HS [facility] Stop: 11/26/23 20:59 Last Admin: 10/29/23 21:03 Dose: 9 mg Midodrine (Midodrine Hcl 2.5 Mg Tab) 5 mg PO TID@0800,1200,1700 [facility] Stop: 11/26/23 16:59 Last Admin: 10/30/23 08:07 Dose: 5 mg Miscellaneous (Ferric Citrate [Auryxia] 210 Mg Iron Tablet) ~ Order Awaiting Action) 1 each N/A QS [facility] Stop: 11/26/23 15:59 Last Admin: 10/30/23 08:08 Dose: Not Given Pantoprazole Sodium (Pantoprazole 40 Mg Tab) 40 mg PO BID [facility] Stop: 11/26/23 20:59 Last Admin: 10/30/23 08:09 Dose: 40 mg Pregabalin (Pregabalin 100 Mg Cap) 100 mg PO BID [facility] Stop: 11/26/23 20:59 Last Admin: 10/30/23 08:11 Dose: 100 mg Sertraline HCl (Sertraline Hcl 100 Mg Tablet) 100 mg PO DAILY [facility] Stop: 11/27/23 08:59 Last Admin: 10/30/23 08:08 Dose: 100 mg Vitamin B Complex/Folic Acid (Nephrocaps) 1 cap PO DAILY [facility] Stop: 11/27/23 08:59 Last Admin: 10/30/23 08:09 Dose: 1 cap Vitamin D (Cholecalciferol 25 Mcg (1000 Units) Tab) 25 mcg PO DAILY [facility] Stop: 11/27/23 08:59 Last Admin: 10/30/23 08:08 Dose: 25 mcg (2) Hypotension Hypotension type: unspecified hypotension type Qualified Code(s): I95.9 - Hypotension, unspecified (6) Parkinson disease Dyskinesia presence: unspecified whether dyskinesia Fluctuating manifestations: unspecified whether manifestations fluctuate Qualified Code(s): G20.A1 - Parkinson's disease without dyskinesia, without mention of fluctuations (8) Hypothyroidism Hypothyroidism type: unspecified Qualified Code(s): E03.9 - Hypothyroidism, unspecified
[2023-10-30 11:58] VITALS: BP 108/65; RESP 19; O2SAT 97
[2023-10-30 15:06] VITALS: PULSE 61
--- NOTE | 2023-10-30 16:51 | Discharge Summary ---
Date of Service October 30, 2023 Admission HPI Per Admitting Provider This is a 78 y/o female with ESRD on HD, COPD, on 3L O2 chronically, hypothyroidism, Parkinson disease, diet-controlled DM2, RENÉ, chronic anemia, LBBB, and other history as outlined below who presented to the ED today from dialysis with confusion and hypotension. History from the patient is limited as she does not recall the events of today so her outpatient notes from [facility] and the EMS notes were extensively reviewed. Pt was at HD today when she became hypotensive with systolic BP in the 70s and subsequently was noted to be confused. She was given 800 cc of IVF and EMS was called. She was noted to be bradycardic in the 30s so atropine 0.5 mg was given en route with improvement of rate to the 70s. Her HR has continued to be in the 70s in the ED. Patient does have a history of sinus bradycardia, LBBB, and frequent PVCs and was evaluated by cardiology during her admission in May 2023. It was not thought that a pacemaker would improve her blood pressure at that time. She was started on midodrine for BP support. In September, she apparently had an unresponsive episode after HD as well that was attributed to vasovagal response but she has been doing well since then. Currently, pt reports feeling tired but otherwise has no specific complaints. Denies pain or difficulty breathing. Admission Exam Per Admitting Provider Physical Exam: General: awake, alart, NAD HEENT: no sclera icterus, moist oral mucosa Neck: trachea midline Heart: RRR Lungs: CTA bilaterally Abdomen: soft, +BS Extremities: no pedal edema Skin: warm, dry, no jaundice Neurologic: limited recollection of events from today, moving all extremities, no focal deficits Principal Diagnosis Sinus bradycardia without significant pauses, occasional ventricular ectopy, end-stage renal disease on hemodialysis, RENÉ Discharge Exam Lying in bed without any acute distress Constitutional well developed, well nourished, + ill appearing and + obese Eyes PERRL, conjunctivae normal, anicteric sclerae ENMT external ear and nose normal, oropharynx normal Neck trachea midline, no thyromegaly Respiratory no respiratory distress Auscultation: + diminished lung sounds and + crackles (Minimal bibasilar crackles) Cardiovascular Rate/Rhythm: regular rate, regular rhythm and + bradycardic Heart Sounds: normal S1 and normal S2; no murmur Extremities: + edema (Trace edema bilaterally) Gastrointestinal (Abdomen) Inspection/Auscultation: normal bowel sounds; abdomen not distended Percussion/Palpation: abdomen soft; abdomen nontender Neurologic normal touch/pain/proprioception and moves all extremities; no focal motor deficits Lymphatic no cervical or axillary lymphadenopathy Discharge Data Allergies Allergy/AdvReac Type Severity Reaction Status Date / Time No Known Allergies Allergy Verified 03/05/23 12:17 Consultations 10/27/23 13:10 ED Decision to Admit Stat 10/27/23 15:43 Consult Cardiology Routine Consult Nephrology Routine Hospital Course (1) Sinus bradycardia: This is a 78 y/o female with ESRD on HD, COPD, on 3L O2 chronically, hypothyroidism, Parkinson disease, diet-controlled DM2, RENÉ, chronic anemia, LBBB, and other history as outlined below who presented to the ED 10/26 from dialysis with confusion and hypotension. BP somewhat improved with IVF but en route pt noted to have bradycardic into the 30s so given atropine 0.5 mg with improvement in rate. Mental status now back to baseline at ED. Pt does have a history of LBBB, frequent PVCs, and episodic bradycardia and was seen by cardiology but it was thought that pacemaker would not improve her symptoms at that time. Recent unresponsive episode at [facility] noted in September. - Admitted to PCU - monitor for additional episodes of bradycardia - Consult cardiology for additional recommendations - currently rates in 50s to 60s. - EKG w/ sinus rythm and pvcs. - Trop chronically elevated given ESRD on HD. pt w/ no chest pain. -Appreciate cardiology input and recommendation No evidence of significant bradyarrhythmias Will observe for any more bradycardia and hypotension during dialysis Likely discharge tomorrow if remains hemodynamically stable -Remains medically stable, hemodynamically stable without any bradycardia arrhythmias She will be discharged this afternoon (2) Hypotension: Started on midodrine during last admission Will continue for now No more hypotensive episode (3) Confusion: Suspect multi-factorial due to episode of hypotension, possibly due to bradycardia down to the 30s (responded to atropine) Now back to baseline mental status Infectious w/u pending - blood and urine cultures collected - no growth so far. Holding empiric antibiotics for now - afebrile, no localizing signs of infection. please send her hematology qualifies Remains hemodynamically stable Drowsy but no other acute symptoms Seems to be at her baseline and confusion is resolved (4) ESRD (end stage renal disease) on dialysis: Chronic, on HD 3x/week Nephrology for assistance with dialysis Will continue hemodialysis as an outpatient (5) Elevated troponin: Likely due to underlying renal insufficiency, flat trend. no chest pain per pt. (6) Parkinson disease: Chronic, stable Continue Sinemet (7) RENÉ (obstructive sleep apnea): Chronic, stable HS CPAP ordered (8) Hypothyroidism: Chronic, TSH wnl. Continue levothyroxine Plan Code status: Full code DVT Prophylaxis: SubQ heparin Will be discharged to [facility] this afternoon Total Time Total Time Spent Total Time Spent (In Minutes): 40 minutes Discharge Plan Discharge Items Patient Disposition: Personal [facility] Reason For Visit: episodic bradycardia Discharge Diagnosis: Sinus bradycardia without significant pauses, occasional ventricular ectopy, end-stage renal disease on hemodialysis, RENÉ Condition on Discharge: Fair Activity: Resume your previous activity Non-emergency contact: Primary Care Provider Call non-emergency contact if: you have any medication questions and your symptoms worsen Follow-up/Referrals: Nae Rodriges PA-C [Primary Care Provider] - Diet: Carb Consistent or DM2 and Dialysis Renal Addtl Attending Provider Instructions: Please take precautions to avoid falls Take your medications as advised Continue with hemodialysis as per your support services specialist Please keep appointments with healthcare providers Pending Studies at Discharge: No Stand-Alone Forms: My [employer], Smoking Cessation Skilled Items Patient informed of condition?: Yes DNR: No Discharge Level of Care: Skilled Communicable Disease: No Discharge Prognosis: Stable Lines: None Urinary Catheter: No Medications and DC Order Prescriptions: Continued atorvastatin 80 mg tablet 80 mg PO QPM sertraline 100 mg tablet 100 mg PO DAILY aspirin 81 mg Tablet,Delayed Release (Dr/Ec) 162 mg PO QAM Patient Comments: afternoon hours levothyroxine 125 mcg tablet 125 mcg PO QAM docusate sodium [Colace] 100 mg Capsule 100 mg PO DAILY carbidopa-levodopa 25-100 mg tablet 1 tab PO TIDM pregabalin 100 mg capsule 100 mg PO BID MDD 300MG/24HR Patient Comments: on dialysis days takes 2 in the evening , , and saturdays Rx Instructions: Patient may take additional dose after hd pantoprazole 20 mg tablet,delayed release (DR/EC) 20 mg PO BID epinephrine [EpiPen] 0.3 mg/0.3 mL Auto-Injector 0.3 mg IM DIRECTED PRN (Reason: Allergic Reaction) Rx Instructions: Unable to verify this medication at this date/time. melatonin 10 mg Tablet 10 mg PO HS Auryxia 210 mg iron tablet 420 mg PO TIDM fluticasone furoate-vilanterol [Breo Ellipta] 200-25 mcg/dose Blister With Device 1 inh INHALATION BID midodrine 5 mg Tablet 5 mg PO TID Rx Instructions: do not give last dose of day after 6PM or within 4 hrs of bedtime Nanci-Samuel 0.8 mg tablet 1 tab PO DAILY cholecalciferol (vitamin D3) 25 mcg (1,000 unit) Capsule 25 mcg PO DAILY Discharge Orders: Discharge Order (Routine); Ordered 10/30/23 Ordered By: Afua Sousa Admission Data Admit Date/Time: 10/27/23 13:44 Attending Provider: Afua Sousa Admit Provider: Jacobo Mcclendon Primary Care Provider: Nae Rodriges Other Providers: Jacobo Mcclendon; Winston Gustafson; Kevin Bruce; Neel Zuluaga; David Ochoa Other Interventions: Discharge Summary Assessment (RN) Last Done: 10/30/23 14:49
== END 2023-10-30 15:12 | DRG 308 ==
LOC: ED 11:50 → 2E 13:44 → SUATTDRO 13:44 → 2E 15:23

== ENCOUNTER 2024-02-17 09:30 | Observation (INO) ==
--- NOTE | 2024-02-17 10:11 | Emergency Department Note ---
Impression & Plan Pulmonary edema, Hemodialysis status, Confusion, Acute on chronic hypoxic respiratory failure, LBBB (left bundle branch block) ED Provider Note NAME: CHESTER FRENCH AGE: 78 SEX: F : 1945 ARRIVES VIA: Ambulance INFORMANT: Patient, ED PROVIDER(S): Elisha Barr MD CHIEF COMPLAINT: Shortness of breath, hallucinations HPI: This is a 78-year-old female with history of ESRD on hemodialysis presenting for shortness of breath, lethargy and hallucinations. Patient was at dialysis, and extra session due to a previously missed session. She was part way through this session when she reportedly began feeling confused, was short of breath and had worsening cough. Patient states that she saw stuff crawling on the ceiling. She has not see this anymore. She otherwise is fairly oriented at this time. She is states she felt weak, tired during this dialysis session. Denies any current pain. ROS: See above HPI for pertinent positives & negatives. A total of 10 systems reviewed and were otherwise negative. PAST MEDICAL HISTORY: See Below PAST SURGICAL HISTORY: See Below FAMILY HISTORY: See Below SOCIAL HISTORY: See Below HOME MEDICATIONS: See Below ALLERGIES: See Below VITALS: See Below PHYSICAL EXAMINATION: General: Chronically unwell appearing Head: Normocephalic and atraumatic Eyes: Normal inspection, extraocular muscles intact Ear, nose, throat: Normal external exam Neck: Normal range of motion Respiratory: Upper airway congestion, crackles at the bases Cardiovascular: Regular rate/rhythm, no murmur GI: soft, nontender, no guarding or rebound Extremities: nontender, moves all extremities Neuro: The patient awake and alert, appropriately conversive, no focal deficits, symmetric faces Skin: Warm, dry, and intact MEDICAL DECISION MAKING: This is a 78-year-old female presenting for shortness of breath, lethargy and hallucinations. On vital sign review, patient is hypoxic, worse than her previous baseline. She is chronically on 2 L, now requiring 4 L. She does sound significantly fluid overloaded with a wet cough. Will do screening chest x-ray, basic blood work and respiratory panel. -Blood work reviewed showing anemia 10.8, fairly reassuring electrolytes. Creatinine 4.29, consistent with ESRD. Negative upper respiratory panel -Chest x-ray independently interpreted by me as cardiomegaly with pulmonary edema -Patient radiology read confirms this as well as right lower lung opacity concerning for atelectasis, pulmonary edema or superimposed pneumonia. Will give IV ceftriaxone and doxycycline due to patient's new cough and confusion. -Patient will be admitted to hospitalist service at this time.. Differential diagnosis: Fluid overload, pneumonia, hyperkalemia, fluid shifting Diagnostics interpreted by me: ECG: ECG independently interpreted by me with sinus rhythm with PVC, rate 62, left bundle branch block, normal QTc, no ST segment elevations consistent with STEMI criteria Cardiac Monitoring: An order was placed for continuous cardiac monitoring. The monitor shows a rate of 63 with sinus rhythm. Past Med/Surg History Problem List (Updated 02/17/24 @ 17:15 by Elisha Barr MD) Pulmonary edema (Acute) Acute respiratory failure with hypoxia RENÉ (obstructive sleep apnea) Diet-controlled type 2 diabetes mellitus Acute on chronic hypoxic respiratory failure (Acute) Chronic hypoxemic respiratory failure Noncompliance with renal dialysis Acute metabolic encephalopathy Hypotension (Acute) Confusion (Acute) Hypothyroidism Sinus bradycardia Hypotension Hemodialysis status (Acute) Anemia (Acute) LBBB (left bundle branch block) (Acute) DM type 2 (diabetes mellitus, type 2) Elevated troponin (Acute) Hypertension Toxic metabolic encephalopathy Dialysis disequilibrium syndrome (Acute) Acute on chronic respiratory failure with hypoxemia Leukocytosis LBBB (left bundle branch block) (Acute) ESRD (end stage renal disease) on dialysis (Acute) Anemia of chronic disease End-stage renal disease (ESRD) (Acute) Generalized weakness Parkinson disease Medical History (Updated 02/17/24 @ 17:15 by Elisha Barr MD) ESRD on hemodialysis Thickened endometrium Acute ischemic stroke NSTEMI (non-ST elevated myocardial infarction) Elevated troponin I level AV fistula R arm Limb alert care status R arm History of recent hospitalization d/c 09/09/22>per medical record, pt sent to ER at [facility] following dialysis for reddened sores on her buttocks. Admitting dx was enterococcus UTI, decubitus ulcer and sacral cellulitis. Difficult intravenous access Black stools Mobility impaired pt non compliant with hx pt treatments / PT IS IN WHEELCHAIR/TOTAL ASSIST Poor short term memory [place] (hard of hearing) COPD (chronic obstructive pulmonary disease) no medications for currently History of stroke 2019- pts spouse poor historian pt denies hx stroke History of anesthesia reaction "hard time waking up" Hx: recurrent pneumonia History of COVID-19 ? early 2021- mild congestion, no hospitalization, no current issues Non-ST elevation DC (NSTEMI) pt spouse not sure/ mild ? remembers something mentioned in hx/ ? details ESRD (end stage renal disease) on dialysis tues, thur & sat ([facility]) Aspiration pneumonia HX Morbid obesity Rheumatoid arthritis ? current status/no meds for Chronic diastolic heart failure EF 50% on 01/2020 echo RACHEL (iron deficiency anemia) Subdural hematoma hx fall 2019 - tx to [facility]/no surgical intervention RENÉ on CPAP Depression Meniere's disease Generalized anxiety disorder Dyslipidemia Restless leg syndrome Diabetes mellitus, type II hx / NO MEDS HTN (hypertension) Surgical History Hx of arteriovenostomy for renal dialysis right arm History of tubal ligation History of carpal tunnel surgery B/L History of orthopedic surgery " bilat heel surgery" H/O sinus surgery Hx of total knee arthroplasty B/L Family History Other AAA (abdominal aortic aneurysm) Diabetes Family history non-contributory Hypertension Myotonic dystrophy Social History Smoking Status: Never smoker Tobacco Type: Cigarettes Cigarettes Per Day: 0.25ppd; Second Hand Exposure: No; Do You Dip or Chew Tobacco: No; Hx Alcohol Use: No Hx Substance Use: No Preferred Language: Swedish Communication Ability: Effective Communication Ability Comment: pt sometimes has difficulty understanding things, is POA Medical Case Manager Required: No Beliefs That Will Affect Care: None marital status: Current Living Situation: [facility] Current Living Situation Comment: Lives at home with , bed bound Feels Safe at Home: Yes Assistive Devices: Mechanical Lift and Wheelchair Allergies Allergies Allergy/AdvReac Type Severity Reaction Status Date / Time No Known Allergies Allergy Verified 03/05/23 12:17 Home Meds Home Medications Medication Instructions Recorded Confirmed aspirin 81 mg tablet,delayed 162 mg PO QAM 11/15/21 02/17/24 release atorvastatin 80 mg tablet 80 mg PO QPM 11/15/21 02/17/24 carbidopa 25 mg-levodopa 100 mg 1 tab PO TID 11/15/21 02/17/24 tablet docusate sodium 100 mg capsule 100 mg PO DAILY 11/15/21 02/17/24 (Colace) levothyroxine 125 mcg tablet 125 mcg PO QAM 11/15/21 02/17/24 pregabalin 100 mg capsule 100 mg PO BID 11/15/21 02/17/24 sertraline 100 mg tablet 100 mg PO DAILY 11/15/21 02/17/24 pantoprazole 20 mg tablet,delayed 20 mg PO BID 05/23/22 02/17/24 release epinephrine 0.3 mg/0.3 mL 0.3 mg IM DIRECTED PRN Allergic 09/05/22 02/17/24 injection, auto-injector (EpiPen) Reaction melatonin 10 mg tablet 10 mg PO HS 09/05/22 02/17/24 ferric citrate 210 mg iron tablet 210 - 420 mg PO UD 01/21/23 02/17/24 (Auryxia) fluticasone furoate 200 1 inh inhalation BID 01/21/23 02/17/24 mcg-vilanterol 25 mcg/dose inhalation powder (Breo Ellipta) cholecalciferol (vitamin D3) 25 25 mcg PO DAILY 10/27/23 02/17/24 mcg (1,000 unit) capsule midodrine 5 mg tablet 5 mg PO UD 10/27/23 02/17/24 vitamin B complex-vitamin C-folic 1 tab PO DAILY 10/27/23 02/17/24 acid 0.8 mg tablet (Nanci-Samuel) Results & Data (ED) Vital Signs Vital Signs - 24 hr 02/17/24 09:25 02/17/24 09:44 02/17/24 09:51 Temperature 36.6 C Temperature Source Oral Pulse Rate 62 73 Pulse Rate [Apical] Pulse Rate from SpO2 Sensor 75 Respiratory Rate 16 13 Blood Pressure 99/64 L Blood Pressure [Left Arm] Blood Pressure Mean 75 Blood Pressure Mean [Left Arm] Pulse Oximetry 86 L 96 96 Oxygen Delivery Method Room Air Nasal Cannula Nasal Cannula Oxygen Flow Rate 0 4 Sepsis Recent Fever Within 48 Hours No Sepsis New/Unexplained Change in Mental Status N/A Sepsis Action Taken by Nursing No Action Required Oxygen Flow Rate - Titration 4 Pulse Oximetry Post Tiitration 96 02/17/24 09:53 02/17/24 09:57 02/17/24 10:01 Temperature Temperature Source Pulse Rate 63 68 Pulse Rate [Apical] Pulse Rate from SpO2 Sensor 70 Respiratory Rate 22 Blood Pressure 118/58 L Blood Pressure [Left Arm] Blood Pressure Mean 77 Blood Pressure Mean [Left Arm] Pulse Oximetry 96 Oxygen Delivery Method Oxygen Flow Rate Sepsis Recent Fever Within 48 Hours Sepsis New/Unexplained Change in Mental Status Sepsis Action Taken by Nursing Oxygen Flow Rate - Titration Pulse Oximetry Post Tiitration 02/17/24 10:02 02/17/24 10:03 02/17/24 10:06 Temperature Temperature Source Pulse Rate 62 Pulse Rate [Apical] 61 Pulse Rate from SpO2 Sensor 61 Respiratory Rate 18 Blood Pressure Blood Pressure [Left Arm] 118/58 L Blood Pressure Mean Blood Pressure Mean [Left Arm] 78 Pulse Oximetry 96 96 97 Oxygen Delivery Method Nasal Cannula Nasal Cannula Oxygen Flow Rate 4 4 Sepsis Recent Fever Within 48 Hours Sepsis New/Unexplained Change in Mental Status Sepsis Action Taken by Nursing Oxygen Flow Rate - Titration Pulse Oximetry Post Tiitration 02/17/24 10:12 02/17/24 10:21 02/17/24 10:24 Temperature Temperature Source Pulse Rate 62 63 60 Pulse Rate [Apical] Pulse Rate from SpO2 Sensor 62 61 61 Respiratory Rate 17 24 15 Blood Pressure Blood Pressure [Left Arm] Blood Pressure Mean Blood Pressure Mean [Left Arm] Pulse Oximetry 97 98 100 Oxygen Delivery Method Oxygen Flow Rate Sepsis Recent Fever Within 48 Hours Sepsis New/Unexplained Change in Mental Status Sepsis Action Taken by Nursing Oxygen Flow Rate - Titration Pulse Oximetry Post Tiitration 02/17/24 10:31 02/17/24 10:33 02/17/24 10:42 Temperature Temperature Source Pulse Rate 61 60 Pulse Rate [Apical] Pulse Rate from SpO2 Sensor 63 62 Respiratory Rate 16 15 Blood Pressure 95/53 L Blood Pressure [Left Arm] Blood Pressure Mean 59 Blood Pressure Mean [Left Arm] Pulse Oximetry 96 98 Oxygen Delivery Method Oxygen Flow Rate Sepsis Recent Fever Within 48 Hours Sepsis New/Unexplained Change in Mental Status Sepsis Action Taken by Nursing Oxygen Flow Rate - Titration Pulse Oximetry Post Tiitration 02/17/24 11:00 02/17/24 11:45 Temperature Temperature Source Pulse Rate 75 66 Pulse Rate [Apical] Pulse Rate from SpO2 Sensor 68 Respiratory Rate 17 16 Blood Pressure 97/76 L 110/56 L Blood Pressure [Left Arm] Blood Pressure Mean 80 74 Blood Pressure Mean [Left Arm] Pulse Oximetry 98 99 Oxygen Delivery Method Nasal Cannula Nasal Cannula Oxygen Flow Rate 4 4 Sepsis Recent Fever Within 48 Hours Sepsis New/Unexplained Change in Mental Status Sepsis Action Taken by Nursing Oxygen Flow Rate - Titration Pulse Oximetry Post Tiitration Laboratory Data 02/17/24 09:50 02/17/24 11:36 Lab Results 02/17/24 02/17/24 Range/Units 09:50 11:36 WBC 10.32 (4.8-10.8) K/ul RBC 3.26 L (4.20-5.40) M/uL Hgb 10.8 L (12.0-16.0) g/dl Hct 33.7 L (37.0-47.0) % MCV 103.4 H (80.0-100.0) fL MCH 33.1 (25.0-34.0) pg MCHC 32.0 (32.0-36.0) g/dL RDW Std Deviation 56.1 H (36.4-46.3) fL RDW Coeff of Bhavin 14.7 H (11.5-14.5) % Plt Count 170 (130-400) K/uL MPV 11.5 (9.4-12.4) fL Immature Gran % (Auto) 2.6 % Neut % (Auto) 75.0 % Lymph % (Auto) 9.2 % [place] % (Auto) 8.3 % Eos % (Auto) 3.9 % Baso % (Auto) 1.0 % Neut # (Auto) 7.74 H (1.40-6.50) K/uL Lymph # (Auto) 0.95 L (1.20-3.40) K/uL [place] # (Auto) 0.86 H (0.11-0.59) K/uL Eos # (Auto) 0.40 (0.00-0.50) K/uL Baso # (Auto) 0.10 (0.00-0.20) K/uL Immature Gran # (Auto) 0.27 H (0.01-0.20) K/uL Sodium 135 L (136-145) mmol/L Potassium TNP 3.6 Chloride 92 L (98-107) mmol/L Carbon Dioxide 35 H (21-32) mmol/L Anion Gap 8 (3-11) BUN 28 H (6-23) mg/dl Creatinine 4.29 H (0.6-1.2) mg/dl Est Cr Clr Drug Dosing 12.3 ml/min eGFR 10.11 BUN/Creatinine Ratio 6.5 L (10-20) Glucose 141 H (70-99(Fasting)) mg/dl Calcium 9.4 (8.6-10.3) mg/dl Total Bilirubin 0.4 (0.2-1.0) mg/dl AST TNP 15 ALT 8 (7-52) U/L Alkaline Phosphatase 92 (34-104) U/L Total Protein 7.5 (6.0-8.3) gm/dl Albumin 4.0 (3.4-5.0) gm/dl Globulin 3.5 (2.5-4.0) gm/dl Albumin/Globulin Ratio 1.1 (0.9-2) Adenovirus (PCR) Not Detected (NotDetected) B. pertussis DNA (PCR) Not Detected (NotDetected) B.parapertussis DNA PCR Not Detected (NotDetected) C. pneumoniae DNA (PCR) Not Detected (NotDetected) Coronavirus OC43 (PCR) Not Detected (NotDetected) Coronavirus HKU1 (PCR) Not Detected (NotDetected) Coronavirus 229E (PCR) Not Detected (NotDetected) SARS-CoV-2 (PCR) Not Detected (NotDetected) Coronavirus NL63 (PCR) Not Detected (NotDetected) Human Metapneumovir PCR Not Detected (NotDetected) Influenza Type A (PCR) Not Detected (NotDetected) Influenza Type B (PCR) Not Detected (NotDetected) M. pneumoniae (PCR) Not Detected (NotDetected) Parainfluenza 1 (PCR) Not Detected (NotDetected) Parainfluenza 2 (PCR) Not Detected (NotDetected) Parainfluenza 3 (PCR) Not Detected (NotDetected) Parainfluenza 4 (PCR) Not Detected (NotDetected) RSV (PCR) Not Detected (NotDetected) Entero/Rhino (PCR) Not Detected (NotDetected) Administered Medications Discontinued Medications Heparin Sodium (Porcine) (Heparin Sod (Porcine) 1000 Unit/Ml) 1,000 units IV ONE ONE Stop: 02/17/24 14:59 Last Admin: 02/17/24 17:07 Dose: Not Given Documented By: DIANA Heparin Sodium (Porcine) (Heparin Sod (Porcine) 1000 Unit/Ml) 400 units IV Q1H BAYRON Stop: 02/17/24 17:01 Last Admin: 02/17/24 17:08 Dose: Not Given Documented By: Admin: 02/17/24 17:08 Dose: Not Given Documented By: Admin: 02/17/24 17:08 Dose: Not Given Documented By: DIANA Ceftriaxone Sodium (Rocephin) 2,000 mg in 50 mls @ 100 mls/hr IV NOW STA Stop: 02/17/24 12:42 Last Infusion: 02/17/24 13:59 Dose: Infused Documented By: Admin: 02/17/24 13:06 Dose: 100 mls/hr Documented By: JOSE Doxycycline Hyclate 100 mg/ (Dextrose) 100 mls @ 50 mls/hr IV NOW STA Stop: 02/17/24 14:12 Last Admin: 02/17/24 14:39 Dose: 50 mls/hr Documented By: TOLU Imaging Data Radiologist's Impression: Chest X-Ray 02/17/24 10:05 XR chest 1V portable CLINICAL HISTORY: weakness, SOB, hypoxia COMPARISON STUDY: Chest CT May 23, 2022. Chest radiograph October 27, 2023. FINDINGS: There is no pneumothorax. There are suspected small bilateral pleural effusions. Cardiomegaly is unchanged. Interstitial thickening is present. Right lower lung opacity is noted. IMPRESSION: 1. Cardiomegaly with interstitial pulmonary edema and small bilateral pleural effusions. 2. Right lower lung airspace opacity which likely reflects alveolar pulmonary edema however superimposed pneumonia could appear similar. ACT 112: Negative or not required by law. Electronically signed by: Bryn Tanner M.D. 02/17/2024 10:27 AM Discharge Plan Visit Data Chief Complaint: Lethargic Stated Complaint: LETHARGIC, VISUAL HALLUCINATIONS ED Provider: Elisha Barr Discharge Problem: Pulmonary edema, Hemodialysis status, Confusion, Acute on chronic hypoxic respiratory failure, LBBB (left bundle branch block) Patient Disposition: Admitted As Inpatient Discharge Instructions Interventions: ED Discharge Assessment Last Done: 02/17/24 14:59
--- NOTE | 2024-02-17 10:28 | XRay Report ---
XR chest 1V portable CLINICAL HISTORY: weakness, SOB, hypoxia COMPARISON STUDY: Chest CT May 23, 2022. Chest radiograph October 27, 2023. FINDINGS: There is no pneumothorax. There are suspected small bilateral pleural effusions. Cardiomega ly is unchanged. Interstitial thickening is present. Right lower lung opacity is noted. IMPRESSION: 1. Cardiomegaly with interstitial pulmonary edema and small bilateral pleural effusions. 2. Right lower lung airspace opacity which likely reflects alveolar pulmonary edema however superimpo sed pneumonia could appear similar. ACT 112: Negative or not required by law. Electronically signed by: Bryn Tanner M.D. 02/17/2024 10:27 AM
[2024-02-17 10:29] LABS: Eosinophils % (auto) 3.9 %; Hematocrit (blood only) 33.7 % (37.0-47.0); Hemoglobin 10.8 g/dl (12.0-16.0); Immature Granulocytes # (auto) 0.27 K/uL (0.01-0.20); Immature Granulocytes % (auto) 2.6 %; Lymphocytes # (auto) 0.95 K/uL (1.20-3.40); Lymphocytes % (auto) 9.2 %; Mean Corpuscular Hemoglobin 33.1 pg (25.0-34.0); Mean Corpuscular Volume 103.4 fL (80.0-100.0); Mean Platelet Volume 11.5 fL (9.4-12.4); Monocytes # (auto) 0.86 K/uL (0.11-0.59); Monocytes % (auto) 8.3 %; Neutrophils # (auto) 7.74 K/uL (1.40-6.50); Platelet Count 170 K/uL (130-400); RDW Coefficient of Variation 14.7 % (11.5-14.5); RDW Standard Deviation 56.1 fL (36.4-46.3); Red Blood Count 3.26 M/uL (4.20-5.40); White Blood Count 10.32 K/ul (4.8-10.8)
[2024-02-17 10:49] LABS: Alanine Aminotransferase 8 U/L (7-52); Albumin Globulin Ratio 1.1 (0.9-2); Alkaline Phosphatase 92 U/L (34-104); Anion Gap 8 (3-11); BUN Creatinine Ratio 6.5 (10-20); Bilirubin,Total 0.4 mg/dl (0.2-1.0); Blood Urea Nitrogen 28 mg/dl (6-23); Calcium 9.4 mg/dl (8.6-10.3); Carbon Dioxide 35 mmol/L (21-32); Chloride 92 mmol/L (98-107); Creatinine Clr Calc Pharmacy 12.3 ml/min; Globulin 3.5 gm/dl (2.5-4.0); Glucose 141 mg/dl (70-99(Fasting)); Sodium 135 mmol/L (136-145); Total Protein 7.5 gm/dl (6.0-8.3)
[2024-02-17 11:17] LABS: Adenovirus PCR Not Detected (NotDetected); Bordetella parapertussis PCR Not Detected (NotDetected); Bordetella pertussis PCR Not Detected (NotDetected); Chlamydia pneumoniae PCR Not Detected (NotDetected); Coronavirus 229E PCR Not Detected (NotDetected); Coronavirus CoV-2 (COVID19)PCR Not Detected (NotDetected); Coronavirus HKU1 PCR Not Detected (NotDetected); Coronavirus NL63 PCR Not Detected (NotDetected); Coronavirus OC43PCR Not Detected (NotDetected); Human Metapneumovirus PCR Not Detected (NotDetected); Influenza A PCR Not Detected (NotDetected); Influenza B PCR Not Detected (NotDetected); Mycoplasma pneumoniae PCR Not Detected (NotDetected); Parainfluenza Virus 1 PCR Not Detected (NotDetected); Parainfluenza Virus 2 PCR Not Detected (NotDetected); Parainfluenza Virus 3 PCR Not Detected (NotDetected); Parainfluenza Virus 4 PCR Not Detected (NotDetected); Respiratory Syncytial VirusPCR Not Detected (NotDetected); Rhinovirus/Enterovirus PCR Not Detected (NotDetected)
[2024-02-17 12:09] LABS: Potassium 3.6 mmol/L (3.5-5.1)
[2024-02-17] MEDS: cefTRIAXone SODIUM 2,000 MG/50 ML BAG IV STA (13:06)
--- NOTE | 2024-02-17 13:08 | History & Physical Report ---
Date of Service February 17, 2024 Assessment & Plan (1) Acute metabolic encephalopathy: Plan: This is multifactorial at this point, this could be as a result of underlying infectious process, or metabolic in nature, the latter is more probable. I have ordered ABG for now to check for hypercapnia, her chest x-ray was reviewed by myself, I concur with plan of continuing empirical antibiotic for questionable pneumonia, will order procalcitonin further improvement improvement in her mental status, monitor respiratory status, nephrology was consulted to proceed with hemodialysis per their recommendation to remove extra volume. Will keep the patient n.p.o. for now until patient regains her full consciousness. (2) Acute on chronic hypoxic respiratory failure: Plan: Reportedly patient has been on 2 to 3 L of oxygen, here upon arrival she needed around 4 L of oxygen but has now improved, the acute component is likely because of volume overload and pulmonary congestion with or without suspicion for right lower lobe pneumonia however the chronic component is as a result of her underlying COPD. Will place on aspiration precaution. monitor oxygen requirement. (3) Noncompliance with renal dialysis: Plan: Will discuss this when patient is able to communicate and is more receptive of advice. (4) Diet-controlled type 2 diabetes mellitus: Plan: For now we will manage with sliding scale coverage as long as patient is here, when she regains her full consciousness, start diabetic regimen. (5) RENÉ (obstructive sleep apnea): Plan: Patient apparently takes CPAP at home at night, at this point considering her confusion, I would be hesitating to place her on CPAP as it increases the likelihood of aspiration. Especially considering the patient at this time seems stable without needing any further oxygenation. Await the result of ABG to further clarify needing for noninvasive ventilation. (6) Morbid obesity: Plan: BMI is 44. Plan Patient will be placed in observation, nephrology will be consulted, will see how she responds to hemodialysis and volume removal per nephrology, monitor respiratory status closely, at this point at the end of my encounter, patient seems to be at baseline level of oxygen requirement, follow the result of ABG to determine if patient needs any additional respiratory care. Monitor neurological status closely. History of Present Illness Chief Complaint: Altered mental status/hypoxemia Primary Care Provider: Nae Rodriges PA-C Patient is a 78-year-old female with history of end-stage renal disease on hemodialysis, history of COPD with chronic hypoxemic respiratory failure on 3 L of oxygen at baseline per records, hypothyroidism, Parkinson disease, diet-controlled diabetes mellitus type 2, RENÉ, chronic anemia of CKD who apparently based on the information I received is coming from [facility], patient apparently has missed some hemodialysis recently and today was sent for hemodialysis however in the middle of the session, nursing staff noted that she was acting different and appeared more confused and hence patient was sent to the hospital. Patient was seen and examined by myself, she is obtunded at this point, unable to maintain eye contact, difficult to arouse and so otherwise she is unable to provide any piece of information. Her blood work appears relatively stable, chest x-ray was reviewed by myself, there was some question whether or not she has a right lower lobe pulmonary infiltrate, my personal opinion is that this is probably more fluid rather than infection however I do not mind continuing empirical antibiotic which has already been initiated by ED physician based on our conversation with ceftriaxone and doxycycline. Will make the patient n.p.o. Place in observation and proceed with nephrology consult for volume removal. Allergies Allergy/AdvReac Type Severity Reaction Status Date / Time No Known Allergies Allergy Verified 03/05/23 12:17 Home Medications Medication Instructions Recorded Confirmed Type aspirin 81 mg tablet,delayed 162 mg PO QAM 11/15/21 02/17/24 History release atorvastatin 80 mg tablet 80 mg PO QPM 11/15/21 02/17/24 History carbidopa 25 mg-levodopa 100 mg 1 tab PO TID 11/15/21 02/17/24 History tablet docusate sodium 100 mg capsule 100 mg PO DAILY 11/15/21 02/17/24 History (Colace) levothyroxine 125 mcg tablet 125 mcg PO QAM 11/15/21 02/17/24 History pregabalin 100 mg capsule 100 mg PO BID 11/15/21 02/17/24 History sertraline 100 mg tablet 100 mg PO DAILY 11/15/21 02/17/24 History pantoprazole 20 mg tablet,delayed 20 mg PO BID 05/23/22 02/17/24 History release epinephrine 0.3 mg/0.3 mL 0.3 mg IM DIRECTED PRN Allergic 09/05/22 02/17/24 History injection, auto-injector (EpiPen) Reaction melatonin 10 mg tablet 10 mg PO HS 09/05/22 02/17/24 History ferric citrate 210 mg iron tablet 210 - 420 mg PO UD 01/21/23 02/17/24 History (Auryxia) fluticasone furoate 200 1 inh inhalation BID 01/21/23 02/17/24 History mcg-vilanterol 25 mcg/dose inhalation powder (Breo Ellipta) cholecalciferol (vitamin D3) 25 25 mcg PO DAILY 10/27/23 02/17/24 History mcg (1,000 unit) capsule midodrine 5 mg tablet 5 mg PO UD 10/27/23 02/17/24 History vitamin B complex-vitamin C-folic 1 tab PO DAILY 10/27/23 02/17/24 History acid 0.8 mg tablet (Nanci-Samuel) Past Med/Surg History Problem List (Updated 02/17/24 @ 13:06 by Amairani Charles MD) RENÉ (obstructive sleep apnea) Diet-controlled type 2 diabetes mellitus Acute on chronic hypoxic respiratory failure Chronic hypoxemic respiratory failure Noncompliance with renal dialysis Acute metabolic encephalopathy Hypotension (Acute) Confusion Hypothyroidism Sinus bradycardia Hypotension Hemodialysis status Anemia (Acute) LBBB (left bundle branch block) (Acute) DM type 2 (diabetes mellitus, type 2) Elevated troponin (Acute) Hypertension Toxic metabolic encephalopathy Dialysis disequilibrium syndrome (Acute) Acute on chronic respiratory failure with hypoxemia Leukocytosis LBBB (left bundle branch block) (Acute) ESRD (end stage renal disease) on dialysis (Acute) Anemia of chronic disease End-stage renal disease (ESRD) (Acute) Generalized weakness Parkinson disease Medical History (Updated 02/17/24 @ 13:06 by Amairani Charles MD) ESRD on hemodialysis Thickened endometrium Acute ischemic stroke NSTEMI (non-ST elevated myocardial infarction) Elevated troponin I level AV fistula R arm Limb alert care status R arm History of recent hospitalization d/c 09/09/22>per medical record, pt sent to ER at [facility] following dialysis for reddened sores on her buttocks. Admitting dx was enterococcus UTI, decubitus ulcer and sacral cellulitis. Difficult intravenous access Black stools Mobility impaired pt non compliant with hx pt treatments / PT IS IN WHEELCHAIR/TOTAL ASSIST Poor short term memory [employer] [place] [employer] [place] (hard of hearing) COPD (chronic obstructive pulmonary disease) no medications for currently History of stroke 2020- pts spouse poor historian pt denies hx stroke History of anesthesia reaction "hard time waking up" Hx: recurrent pneumonia History of COVID-19 ? early 2021- mild congestion, no hospitalization, no current issues Non-ST elevation [place] (NSTEMI) pt spouse not sure/ mild ? remembers something mentioned in hx/ ? details ESRD (end stage renal disease) on dialysis tues, thur & sat ([place]) Aspiration pneumonia HX Morbid obesity Rheumatoid arthritis ? current status/no meds for Chronic diastolic heart failure EF 50% on 01/2020 echo RACHEL (iron deficiency anemia) Subdural hematoma hx fall 2019 - tx to [facility]/no surgical intervention RENÉ on CPAP Depression Meniere's disease Generalized anxiety disorder Dyslipidemia Restless leg syndrome Diabetes mellitus, type II hx / NO MEDS HTN (hypertension) Surgical History Hx of arteriovenostomy for renal dialysis right arm History of tubal ligation History of carpal tunnel surgery B/L History of orthopedic surgery " bilat heel surgery" H/O sinus surgery Hx of total knee arthroplasty B/L Family History Other AAA (abdominal aortic aneurysm) Diabetes Family history non-contributory Hypertension Myotonic dystrophy Social History Smoking Status: Never smoker Tobacco Type: Cigarettes Cigarettes Per Day: 0.25ppd; Second Hand Exposure: No; Do You Dip or Chew Tobacco: No; Hx Alcohol Use: No Hx Substance Use: No Preferred Language: Hungarian Communication Ability: Effective Communication Ability Comment: pt sometimes has difficulty understanding things, is POA Heating Technician Required: No Beliefs That Will Affect Care: None marital status: Current Living Situation: Correction Current Living Situation Comment: Lives at home with , bed bound Feels Safe at Home: Yes Assistive Devices: Mechanical Lift and Wheelchair Review of Systems Review of Systems: This is notable for profound obtundation, the rest of ROS cannot be completed because of patient's poor cooperation Physical Exam Physical Exam: VITALS: Reviewed. WEIGHT/BMI reviewed. GEN: Healthy appearing, well-developed, NAD. NECK: Supple, with no masses. CV: RRR, no m/r/g. LUNGS: CTAB, no w/r/c. ABD: Obese, appears slightly distended but otherwise nontender SKIN: Warm, well perfused. No skin rashes or abnormal lesions. Results & Data Results & Data Vital Signs (Past 12 Hours) Vital Signs Temp Pulse Pulse Resp BP BP Pulse Ox 02/17/24 10:42 60 15 98 02/17/24 10:33 61 16 96 02/17/24 10:31 95/53 L 02/17/24 10:24 60 15 100 02/17/24 10:21 63 24 98 02/17/24 10:12 62 17 97 02/17/24 10:06 97 02/17/24 10:03 62 18 96 02/17/24 10:02 61 118/58 L 96 02/17/24 10:01 118/58 L 02/17/24 09:57 68 22 96 02/17/24 09:53 63 02/17/24 09:51 73 13 96 02/17/24 09:44 36.6 C 62 16 99/64 L 96 02/17/24 09:25 86 L O2 Del Method O2 Flow Rate 02/17/24 10:42 02/17/24 10:33 02/17/24 10:31 02/17/24 10:24 02/17/24 10:21 02/17/24 10:12 02/17/24 10:06 Nasal Cannula 4 02/17/24 10:03 02/17/24 10:02 Nasal Cannula 4 02/17/24 10:01 02/17/24 09:57 02/17/24 09:53 02/17/24 09:51 02/17/24 09:44 Nasal Cannula 4 02/17/24 09:25 Room Air, Nasal Cannula 0 Laboratory Results Laboratory Results - last 24 hr 02/17/24 02/17/24 09:50 11:36 WBC 10.32 RBC 3.26 L Hgb 10.8 L Hct 33.7 L MCV 103.4 H MCH 33.1 MCHC 32.0 RDW Std Deviation 56.1 H RDW Coeff of Bhavin 14.7 H Plt Count 170 MPV 11.5 Immature Gran % (Auto) 2.6 Neut % (Auto) 75.0 Lymph % (Auto) 9.2 Sullivan % (Auto) 8.3 Eos % (Auto) 3.9 Baso % (Auto) 1.0 Neut # (Auto) 7.74 H Lymph # (Auto) 0.95 L Sullivan # (Auto) 0.86 H Eos # (Auto) 0.40 Baso # (Auto) 0.10 Immature Gran # (Auto) 0.27 H Sodium 135 L Potassium TNP 3.6 Chloride 92 L Carbon Dioxide 35 H Anion Gap 8 BUN 28 H Creatinine 4.29 H Est Cr Clr Drug Dosing 12.3 eGFR 10.11 BUN/Creatinine Ratio 6.5 L Glucose 141 H Calcium 9.4 Total Bilirubin 0.4 AST TNP 15 ALT 8 Alkaline Phosphatase 92 Total Protein 7.5 Albumin 4.0 Globulin 3.5 Albumin/Globulin Ratio 1.1 Adenovirus (PCR) Not Detected B. pertussis DNA (PCR) Not Detected B.parapertussis DNA PCR Not Detected C. pneumoniae DNA (PCR) Not Detected Coronavirus OC43 (PCR) Not Detected Coronavirus HKU1 (PCR) Not Detected Coronavirus 229E (PCR) Not Detected SARS-CoV-2 (PCR) Not Detected Coronavirus NL63 (PCR) Not Detected Human Metapneumovir PCR Not Detected Influenza Type A (PCR) Not Detected Influenza Type B (PCR) Not Detected M. pneumoniae (PCR) Not Detected Parainfluenza 1 (PCR) Not Detected Parainfluenza 2 (PCR) Not Detected Parainfluenza 3 (PCR) Not Detected Parainfluenza 4 (PCR) Not Detected RSV (PCR) Not Detected Entero/Rhino (PCR) Not Detected Diagnostic Findings Chest X-Ray 02/17/24 10:05 XR chest 1V portable CLINICAL HISTORY: weakness, SOB, hypoxia COMPARISON STUDY: Chest CT May 23, 2022. Chest radiograph October 27, 2023. FINDINGS: There is no pneumothorax. There are suspected small bilateral pleural effusions. Cardiomegaly is unchanged. Interstitial thickening is present. Right lower lung opacity is noted. IMPRESSION: 1. Cardiomegaly with interstitial pulmonary edema and small bilateral pleural effusions. 2. Right lower lung airspace opacity which likely reflects alveolar pulmonary edema however superimposed pneumonia could appear similar. ACT 112: Negative or not required by law. Electronically signed by: Bryn Tanner M.D. 02/17/2024 10:27 AM Medications Administered Current Inpatient Medications Doxycycline Hyclate 100 mg/ (Dextrose) 100 mls @ 50 mls/hr IV NOW STA Stop: 12/03/24 14:12 Code Status & VTE Plan Code Status Full code for now VTE Prophylaxis Plan VTE Prophylaxis will be ordered: Yes
[2024-02-17 14:01] LABS: iSTAT Arterial Blood Gas HCO3 34 meg/L (19-24); iSTAT Arterial Blood Gas pCO2 53 mmHg (35-46); iSTAT Arterial Blood Gas pH 7.42 (7.35-7.45); iSTAT Arterial Blood Gas pO2 86 mmHg (80-95); iSTAT Carbon Dioxide 36 mmol/L (24-31); iSTAT Hematocrit 31 % (37-47); iSTAT Hemoglobin 10.5 g/dl (12.0-16.0); iSTAT Potassium 3.7 mmol/L (3.3-5.0); iSTAT Sample Type Arterial; iSTAT Sodium 135 mmol/L (135-144)
--- NOTE | 2024-02-17 14:19 | Electrocardiogram Report ---
Test Reason : Blood Pressure : */* mmHG Vent. Rate : 62 BPM Atrial Rate : 62 BPM P-R Int : 176 ms QRS Dur : 154 ms QT Int : 502 ms P-R-T Axes : -14 33 68 degrees QTcB Int : 509 ms Sinus rhythm with frequent Premature ventricular complexes Left bundle branch block Abnormal ECG When compared with ECG of 14-Nov-2023 12:19, No significant change was found Confirmed by Angel Lopez ([id number]) on 02/17/2024 2:19:27 PM Referred By: Confirmed By: Angel Lopez
--- NOTE | 2024-02-17 14:32 | Nephrology Consultation ---
Date of Consultation February 17, 2024 Assessment & Plan (1) Acute metabolic encephalopathy: markedly obtunded; already had confusion and lethargy yesterday -suggest stat head CT and ammonia level (can draw latter at start of HD) -chest CT after HD (ONLY If we are able to remove target UF else defer please) >>suggest discussing w/ OP facility if any new/increased med doses (2) Hypotension: SBP low 90s when I was evaluating her >> not clear she'll tolerate HD; may need to move to ICU for pressor support if we are unable to remove fluid today as she is too obtunded for midodrine suggest -low threshold for TTE -consider lactate or procalcitonin or other sepsis workup (3) Acute respiratory failure with hypoxia: have reached out to her facility to evaluate adherence w/ CPAP and needs if any for chronic 02. pending response. she does not normally require 02 I do not believe. >ensure her COPD therapy/nebs are ongoing/aggressive (4) Hemodialysis status: she is still behind about 2.5 hours of dialysis for the last week but left treatment today 0.5 kg over normal post tx target weight and about 1 kg over her usual post weight. not excessively overloaded based on her weights, though imaging noted. >>we will attempt dialysis today; however she may not tolerate much UF d/t hypotension >>plan 2 hr tx w/ up to 2L UF keep sbp >80 >>plan routine HD tomorrow; may need pressor support History of Present Illness Reason for Consultation: missed hemodialysis, volume overload Requesting Physician: Dr Lozano Attending Physician: Dr Lozano History of Present Illness 78 y/o F whom I'm asked to see for volume overload after missed dialysis was sent to [facility] from HD today d/t abrupt onset confusion, dyspnea, and visual hallucinations. PMH includes ESRD (on in center hemo via AVF under my care MWF at [facility]), DM II, hypothyroidism, COPD, anemia, history of rectal bleeding, Parkinson's disease and Parkinson's associated dementia, RENÉ ? more adherent w/ CPAP since moving into [facility], CAD, stroke, GUZMÁN, HL, chronic ambulatory dysfunction/ does not transfer. She does not currently use 02NC at dialysis and is not usually 02 dependent. she missed friday's HD and came to tx heavy on Friday at 104.2 kg, leaving at 102.7 kg. the PA at [facility] actually evaluated her d/t more confusion, lethargy, acute dyspnea, and audible wheezing after HD yesterday. His impression was possible pneumonia > a chest Xray was obtained (results/image not available) and her nebs were increased; labs were obtained (results not available). Today she started treatment at 103 kg and finished treatment at 102 kg w/ TW of 101.5 kg; no sx of volume overload were documented in the nursing notes at treatment > no dyspnea, edema, or hypoxia, though she did have coughing yesterday. She had 1.3 hours of 4 hour treatment which was stopped for reasons above. Her TW has been stable for the past month, though more often than not she leaves at about 101 kg. Brought to [facility] where w/u revealed CXR w/ RML >> she was started on empiric doxycycline and ceftriaxone. biofire negative; ABG wnl. she was obtunded in the ER. Allergies Allergy/AdvReac Type Severity Reaction Status Date / Time No Known Allergies Allergy Verified 03/05/23 12:17 Home Medications Medication Instructions Recorded Confirmed Type aspirin 81 mg tablet,delayed 162 mg PO QAM 11/15/21 02/17/24 History release atorvastatin 80 mg tablet 80 mg PO QPM 11/15/21 02/17/24 History carbidopa 25 mg-levodopa 100 mg 1 tab PO TID 11/15/21 02/17/24 History tablet docusate sodium 100 mg capsule 100 mg PO DAILY 11/15/21 02/17/24 History (Colace) levothyroxine 125 mcg tablet 125 mcg PO QAM 11/15/21 02/17/24 History pregabalin 100 mg capsule 100 mg PO BID 11/15/21 02/17/24 History sertraline 100 mg tablet 100 mg PO DAILY 11/15/21 02/17/24 History pantoprazole 20 mg tablet,delayed 20 mg PO BID 05/23/22 02/17/24 History release epinephrine 0.3 mg/0.3 mL 0.3 mg IM DIRECTED PRN Allergic 09/05/22 02/17/24 History injection, auto-injector (EpiPen) Reaction melatonin 10 mg tablet 10 mg PO HS 09/05/22 02/17/24 History ferric citrate 210 mg iron tablet 210 - 420 mg PO UD 01/21/23 02/17/24 History (Auryxia) fluticasone furoate 200 1 inh inhalation BID 01/21/23 02/17/24 History mcg-vilanterol 25 mcg/dose inhalation powder (Breo Ellipta) cholecalciferol (vitamin D3) 25 25 mcg PO DAILY 10/27/23 02/17/24 History mcg (1,000 unit) capsule midodrine 5 mg tablet 5 mg PO UD 10/27/23 02/17/24 History vitamin B complex-vitamin C-folic 1 tab PO DAILY 10/27/23 02/17/24 History acid 0.8 mg tablet (Nanci-Samuel) Patient History Medical History (Updated 02/17/24 @ 15:01 by Erica Tobar MD, PhD) ESRD on hemodialysis Thickened endometrium Acute ischemic stroke NSTEMI (non-ST elevated myocardial infarction) Elevated troponin I level AV fistula R arm Limb alert care status R arm History of recent hospitalization d/c 09/09/22>per medical record, pt sent to ER at [facility] following dialysis for reddened sores on her buttocks. Admitting dx was enterococcus UTI, decubitus ulcer and sacral cellulitis. Difficult intravenous access Black stools Mobility impaired pt non compliant with hx pt treatments / PT IS IN WHEELCHAIR/TOTAL ASSIST Poor short term memory [place] (hard of hearing) COPD (chronic obstructive pulmonary disease) no medications for currently History of stroke 2019- pts spouse poor historian pt denies hx stroke History of anesthesia reaction "hard time waking up" Hx: recurrent pneumonia History of COVID-19 ? early 2021- mild congestion, no hospitalization, no current issues Non-ST elevation [place] (NSTEMI) pt spouse not sure/ mild ? remembers something mentioned in hx/ ? details ESRD (end stage renal disease) on dialysis tues, thur & sat ([place]) Aspiration pneumonia HX Morbid obesity Rheumatoid arthritis ? current status/no meds for Chronic diastolic heart failure EF 50% on 01/2020 echo RACHEL (iron deficiency anemia) Subdural hematoma hx fall 2019 - tx to [facility]/no surgical intervention RENÉ on CPAP Depression Meniere's disease Generalized anxiety disorder Dyslipidemia Restless leg syndrome Diabetes mellitus, type II hx / NO MEDS HTN (hypertension) Surgical History Hx of arteriovenostomy for renal dialysis right arm History of tubal ligation History of carpal tunnel surgery B/L History of orthopedic surgery " bilat heel surgery" H/O sinus surgery Hx of total knee arthroplasty B/L Family History Other AAA (abdominal aortic aneurysm) Diabetes Family history non-contributory Hypertension Myotonic dystrophy Social History Smoking Status: Never smoker Tobacco Type: Cigarettes Cigarettes Per Day: 0.25ppd; Second Hand Exposure: No; Do You Dip or Chew Tobacco: No; Hx Alcohol Use: No Hx Substance Use: No Preferred Language: Lithuanian Communication Ability: Effective Communication Ability Comment: pt sometimes has difficulty understanding things, is POA Field Assistant Required: No Beliefs That Will Affect Care: None marital status: Current Living Situation: Assisted Current Living Situation Comment: Lives at home with , bed bound Feels Safe at Home: Yes Assistive Devices: Mechanical Lift and Wheelchair Review of Systems 2 Review of Systems: All systems reviewed & are unremarkable except as noted in HPI & below Physical Exam 2 Constitutional: well developed, well nourished and + altered mental status; no acute distress ENMT: Mouth: + dry oral mucous membranes Respiratory: normal respiratory effort; no respiratory distress, no labored breathing, no cough and not tachypneic Auscultation: + diminished lung sounds Cardiovascular: Rate/Rhythm: regular rate (HS distant) and regular rhythm E xtremities: no edema Gastrointestinal (Abdomen): Inspection/Auscultation: normal bowel sounds P ercussion/Palpation: abdomen soft; abdomen nontender Skin: no rashes, warm and dry Neurologic: caballero, no tremor, on lift pad; snoring deeply > arouseable by sternal rub briefly Results & Data Vital Signs (Past 12 Hours) Vital Signs Temp Pulse Pulse Resp BP BP Pulse Ox 02/17/24 13:51 62 02/17/24 11:45 66 16 110/56 L 99 02/17/24 11:00 75 17 97/76 L 98 02/17/24 10:42 60 15 98 02/17/24 10:33 61 16 96 02/17/24 10:31 95/53 L 02/17/24 10:24 60 15 100 02/17/24 10:21 63 24 98 02/17/24 10:12 62 17 97 02/17/24 10:06 97 02/17/24 10:03 62 18 96 02/17/24 10:02 61 118/58 L 96 02/17/24 10:01 118/58 L 02/17/24 09:57 68 22 96 02/17/24 09:53 63 02/17/24 09:51 73 13 96 02/17/24 09:44 36.6 C 62 16 99/64 L 96 02/17/24 09:25 86 L O2 Del Method O2 Flow Rate 02/17/24 13:51 02/17/24 11:45 Nasal Cannula 4 02/17/24 11:00 Nasal Cannula 4 02/17/24 10:42 02/17/24 10:33 02/17/24 10:31 02/17/24 10:24 02/17/24 10:21 02/17/24 10:12 02/17/24 10:06 Nasal Cannula 4 02/17/24 10:03 02/17/24 10:02 Nasal Cannula 4 02/17/24 10:01 02/17/24 09:57 02/17/24 09:53 02/17/24 09:51 02/17/24 09:44 Nasal Cannula 4 02/17/24 09:25 Room Air, Nasal Cannula 0 Laboratory Results 02/17/24 09:50 02/17/24 11:36 Diagnostic Findings CXR 1. Cardiomegaly with interstitial pulmonary edema and small bilateral pleural effusions. 2. Right lower lung airspace opacity which likely reflects alveolar pulmonary edema however superimposed pneumonia could appear similar. (2) Hypotension Hypotension type: unspecified hypotension type Qualified Code(s): I95.9 - Hypotension, unspecified
[2024-02-17] MEDS: DOXYCYCLINE HYCLATE 100 MG in DEXTROSE 5% MINI-B 100 ML IV STA (14:39)
[2024-02-17] MEDS ORDERED: ONDANSETRON INJ 2 MG/ML 2 ML VIAL IV PRN (14:59)
--- NOTE | 2024-02-17 15:59 | CT Scan Report ---
CT OF THE HEAD WITHOUT CONTRAST CLINICAL HISTORY: Altered mental status. COMPARISON STUDY: MRI of the brain November 14, 2019. Head CT May 23, 2023. CT DOSE: 625.8 mGy.cm TECHNIQUE: Helical axial images of the head were obtained without IV contrast. Automated exposure con trol was utilized for the study. A dose lowering technique was utilized adhering to the principles o f ALARA. FINDINGS: No acute intracranial hemorrhage, midline shift or mass effect is present. The ventricular system is stable. A 1.8 cm hypodense focus within the periventricular left frontal lobe on image 19 o f [address] of May 23, 2023. This is within the mota radiata and may involve a portion of the left caudate nucleus. Otherwise, the appearance of the brain is unchanged. Paranasal sinus opaci fication is similar to prior exam for there are no calvarial fractures. A small amount of fluid withi n the bilateral mastoid air cells is present. IMPRESSION: 1. No acute intracranial hemorrhage or mass effect. 2. 1.8 cm hypodense focus within the periventricular left frontal lobe which involves the mota radi alexy and possibly the left caudate nucleus. This could reflect an age indeterminate infarct or small v essel disease. ACT 112: Negative or not required by law. Electronically signed by: Bryn Tanner M.D. 02/17/2024 3:58 PM
[2024-02-17] MEDS: HEPARIN SOD (PORCINE) 1000 UNIT/ML IV ONE (17:07)
[2024-02-17] MEDS: HEPARIN SOD (PORCINE) 1000 UNIT/ML IV SCH (17:08)
[2024-02-17] MEDS: INSULIN ASPART PER UNIT CHARGE SC SCH (19:50)
[2024-02-17] MEDS: HEPARIN SOD 5,000 UNIT/0.5 ML VIAL SQ SCH (19:57)
[2024-02-18] MEDS: INSULIN ASPART PER UNIT CHARGE SC SCH ×2 (01:03→12:33)
[2024-02-18] MEDS ORDERED: INSULIN ASPART PER UNIT CHARGE SC SCH (06:00)
[2024-02-18 08:06] LABS: Hematocrit (blood only) 32.4 % (37.0-47.0); Hemoglobin 10.3 g/dl (12.0-16.0); Mean Corpuscular Hemoglobin 33.1 pg (25.0-34.0); Mean Corpuscular Hgb Conc 31.8 g/dL (32.0-36.0); Mean Corpuscular Volume 104.2 fL (80.0-100.0); Mean Platelet Volume 10.9 fL (9.4-12.4); Platelet Count 166 K/uL (130-400); RDW Coefficient of Variation 14.9 % (11.5-14.5); RDW Standard Deviation 56.3 fL (36.4-46.3); Red Blood Count 3.11 M/uL (4.20-5.40); White Blood Count 9.47 K/ul (4.8-10.8)
[2024-02-18 08:27] LABS: BUN Creatinine Ratio 5.6 (10-20); Potassium 4.2 mmol/L (3.5-5.1)
--- NOTE | 2024-02-18 10:54 | Hospitalist Progress Note ---
Date of Service February 18, 2024 Assessment & Plan (1) Acute metabolic encephalopathy: Plan: Mostly resolved, again I feel that this is multifactorial mostly from underlying metabolic derangement because of missed hemodialysis, I personally do not think that the discovery of a new finding on CT of the head which appears to be age- indeterminate has any relation to this picture especially now that patient has shown significant improvement over the past 24 hours. ABG was reviewed which showed some element of hypercapnia. I will repeat chest x-ray tomorrow after volume removal to have a follow-up on but initially seen on right lower lobe but again clinically I do not think patient has pneumonia. I asked nursing staff to do a bedside swallow evaluation and if patient is stable can start renal diet. (2) Acute on chronic hypoxic respiratory failure: Plan: The acute component has resolved, patient is back on her home oxygen requirement, continue to monitor. (3) Noncompliance with renal dialysis: Plan: Will discuss this when patient is able to communicate and is more receptive of advice. (4) Diet-controlled type 2 diabetes mellitus: Plan: Continue with sliding scale coverage as long as patient is here, when she regains her full consciousness, start diabetic/renal regimen. (5) RENÉ (obstructive sleep apnea): Plan: Will start CPAP at night now that her confusion has resolved. (6) Morbid obesity: Plan: BMI is 44. Plan Will convert to inpatient, patient requires at least another day of evaluation until completion of the workup and hemodialysis. Admission and Anticipated Discharge Date Admission Date: February 17, 2024 Subjective Patient was seen and examined, there was a concern about sepsis workup yesterday however her confusion has resolved, today she is arousable and responsive although at baseline appears to be slightly confused. She denied having any new symptoms. No issue otherwise, CT of the head yesterday showed some 1.8 cm hypodense focus within the periventricular left frontal lobe involving mota radiata and left cavitate nucleus which could reflect an age-indeterminate infarct or small vessel disease, but otherwise no acute finding was reported. Physical Exam Physical Exam: VITALS: Reviewed. P WEIGHT/BMI reviewed. GEN: Healthy appearing, well-developed, NAD. Patient came communicate, she is awake. She has full recollection of what happened yesterday. NECK: Supple, with no masses. CV: RRR, no m/r/g. LUNGS: CTAB, no w/r/c. ABD: Obese, appears slightly distended but otherwise nontender SKIN: Warm, well perfused. No skin rashes or abnormal lesions. Results & Data Results & Data Vital Signs (Past 12 Hours) Vital Signs Temp Pulse Resp BP Pulse Ox O2 Del Method O2 Flow Rate 02/18/24 07:51 Nasal Cannula 2 02/18/24 07:38 36.6 C 67 16 137/77 96 Nasal Cannula 3 Laboratory Results Laboratory Results - last 24 hr 02/17/24 02/17/24 02/17/24 09:50 11:36 13:33 WBC RBC Hgb POC Hgb 10.5 L Hct POC Hct 31 L MCV MCH MCHC RDW Std Deviation RDW Coeff of Bhavin Plt Count MPV Specimen Type Arterial POC pH 7.42 POC pCO2 53 H POC pO2 86 POC HCO3 34 H POC Total CO2 36 H POC Base Excess 10.0 H POC ABG O2 Sat 96.0 H POC Sodium 135 Sodium 135 L POC Potassium 3.7 Potassium TNP 3.6 Chloride 92 L Carbon Dioxide 35 H Anion Gap 8 BUN 28 H Creatinine 4.29 H Est Cr Clr Drug Dosing 12.3 eGFR 10.11 BUN/Creatinine Ratio 6.5 L Glucose 141 H POC Glucose Calcium 9.4 Total Bilirubin 0.4 AST TNP 15 ALT 8 Alkaline Phosphatase 92 Ammonia Total Protein 7.5 Albumin 4.0 Globulin 3.5 Albumin/Globulin Ratio 1.1 Nasal Screen MRSA (PCR) Adenovirus (PCR) Not Detected B. pertussis DNA (PCR) Not Detected B.parapertussis DNA PCR Not Detected C. pneumoniae DNA (PCR) Not Detected Coronavirus OC43 (PCR) Not Detected Coronavirus HKU1 (PCR) Not Detected Coronavirus 229E (PCR) Not Detected SARS-CoV-2 (PCR) Not Detected Coronavirus NL63 (PCR) Not Detected Human Metapneumovir PCR Not Detected Influenza Type A (PCR) Not Detected Influenza Type B (PCR) Not Detected M. pneumoniae (PCR) Not Detected Parainfluenza 1 (PCR) Not Detected Parainfluenza 2 (PCR) Not Detected Parainfluenza 3 (PCR) Not Detected Parainfluenza 4 (PCR) Not Detected RSV (PCR) Not Detected Entero/Rhino (PCR) Not Detected 02/17/24 02/17/24 02/17/24 16:46 19:48 23:36 WBC RBC Hgb POC Hgb Hct POC Hct MCV MCH MCHC RDW Std Deviation RDW Coeff of Bhavin Plt Count MPV Specimen Type POC pH POC pCO2 POC pO2 POC HCO3 POC Total CO2 POC Base Excess POC ABG O2 Sat POC Sodium Sodium POC Potassium Potassium Chloride Carbon Dioxide Anion Gap BUN Creatinine Est Cr Clr Drug Dosing eGFR BUN/Creatinine Ratio Glucose POC Glucose 108 H 95 Calcium Total Bilirubin AST ALT Alkaline Phosphatase Ammonia 20.0 Total Protein Albumin Globulin Albumin/Globulin Ratio Nasal Screen MRSA (PCR) Adenovirus (PCR) B. pertussis DNA (PCR) B.parapertussis DNA PCR C. pneumoniae DNA (PCR) Coronavirus OC43 (PCR) Coronavirus HKU1 (PCR) Coronavirus 229E (PCR) SARS-CoV-2 (PCR) Coronavirus NL63 (PCR) Human Metapneumovir PCR Influenza Type A (PCR) Influenza Type B (PCR) M. pneumoniae (PCR) Parainfluenza 1 (PCR) Parainfluenza 2 (PCR) Parainfluenza 3 (PCR) Parainfluenza 4 (PCR) RSV (PCR) Entero/Rhino (PCR) 02/18/24 02/18/24 02/18/24 00:59 05:56 07:49 WBC 9.47 RBC 3.11 L Hgb 10.3 L POC Hgb Hct 32.4 L POC Hct MCV 104.2 H MCH 33.1 MCHC 31.8 L RDW Std Deviation 56.3 H RDW Coeff of Bhavin 14.9 H Plt Count 166 MPV 10.9 Specimen Type POC pH POC pCO2 POC pO2 POC HCO3 POC Total CO2 POC Base Excess POC ABG O2 Sat POC Sodium Sodium 139 POC Potassium Potassium 4.2 Chloride 98 Carbon Dioxide 34 H Anion Gap 7 BUN 24 H Creatinine 4.30 H Est Cr Clr Drug Dosing 12.0 eGFR 10.08 BUN/Creatinine Ratio 5.6 L Glucose 97 POC Glucose 101 H Calcium 10.0 Total Bilirubin AST ALT Alkaline Phosphatase Ammonia Total Protein Albumin Globulin Albumin/Globulin Ratio Nasal Screen MRSA (PCR) Positive A Adenovirus (PCR) B. pertussis DNA (PCR) B.parapertussis DNA PCR C. pneumoniae DNA (PCR) Coronavirus OC43 (PCR) Coronavirus HKU1 (PCR) Coronavirus 229E (PCR) SARS-CoV-2 (PCR) Coronavirus NL63 (PCR) Human Metapneumovir PCR Influenza Type A (PCR) Influenza Type B (PCR) M. pneumoniae (PCR) Parainfluenza 1 (PCR) Parainfluenza 2 (PCR) Parainfluenza 3 (PCR) Parainfluenza 4 (PCR) RSV (PCR) Entero/Rhino (PCR) Diagnostic Findings Head CT 02/17/24 15:23 CT OF THE HEAD WITHOUT CONTRAST CLINICAL HISTORY: Altered mental status. COMPARISON STUDY: MRI of the brain November 14, 2019. Head CT May 23, 2023. CT DOSE: 625.8 mGy.cm TECHNIQUE: Helical axial images of the head were obtained without IV contrast. Automated exposure control was utilized for the study. A dose lowering technique was utilized adhering to the principles of ALARA. FINDINGS: No acute intracranial hemorrhage, midline shift or mass effect is pre sent. The ventricular system is stable. A 1.8 cm hypodense focus within the periventricular left frontal lobe on image 19 of [address] of May 23, 2023. This is within the mota radiata and may involve a portion of the left caudate nucleus. Otherwise, the appearance of the brain is unchanged. Paranasal sinus opacification is similar to prior exam for there are no calvarial fractures. A small amount of fluid within the bilateral mastoid air cells is present. IMPRESSION: 1. No acute intracranial hemorrhage or mass effect. 2. 1.8 cm hypodense focus within the periventricular left frontal lobe which involves the mota radiata and possibly the left caudate nucleus. This could reflect an age indeterminate infarct or small vessel disease. ACT 112: Negative or not required by law. Electronically signed by: Bryn Tanner M.D. 02/17/2024 3:58 PM Medications Administered Current Inpatient Medications Heparin Sodium (Porcine) (Heparin Sod 5,000 Unit/0.5 Ml Vial) 5,000 units SQ Q8H [facility] Stop: 03/18/24 14:59 Last Admin: 02/18/24 07:05 Dose: Not Given Insulin Aspart (Insulin Aspart Per Unit Charge) 0 units SC Q6 [facility] Stop: 03/19/24 00:00 Last Admin: 02/18/24 06:05 Dose: Not Given Ondansetron HCl (Ondansetron Inj 2 Mg/Ml 2 Ml Vial) 4 mg IV Q6H PRN PRN Reason: Nausea Stop: 03/18/24 14:58
[2024-02-18] MEDS ORDERED: Nursing to Pharmacy Communication SCH (12:15)
--- NOTE | 2024-02-18 12:33 | Nephrology Progress Note ---
Date of Service February 18, 2024 Assessment & Plan (1) Hemodialysis status: Plan: made up missing treatment time now >> left OP dialysis day of admission 0.5 kg over normal post tx target weight and about 1 kg over her usual post weight. not excessively overloaded based on her weights, though imaging noted w/ mild OL. K controlled at 4.2. >>routine OP HD today; unlikely to need pressor support but did order midodrine; mini heparin w/ HD; no epo needed w/ hgb 10.[address] Charles regarding f/u imaging, swallow eval, dialysis plans; we are in agreement. (2) Acute metabolic encephalopathy: Plan: resolved; day of admission was markedly obtunded; already had confusion and lethargy day prior to admission -new interval finding on head CT >> possibly age indeterminate infarct; consider MRI brain -f/u swallow eval (3) Hypotension: Plan: improved/resolved. >midodrine w/ HD ordered >HD as above (4) Acute respiratory failure with hypoxia: Plan: h/o severe sleep apnea and poor adherence w/ CPAP. historically not needing 02NC but used for comfort at HD; that said her 02 needs haven't been evaluated recently by specialist she does not normally require 02 >>suggest nonemergent post hospital f/u w/ pulmonary to reeval chronic 02 needs if any and overall pulm status (last seen spring 2020 w/ f/u planned but never scheduled) >ensure her COPD therapy/nebs are ongoing/aggressive Admission and Anticipated Discharge Date Admission Date: February 17, 2024 Subjective no acute interval events. yesterday after HD she was still essentially obtunded per RN report > not following commands, not awake. this am awake, hungry, denies pain or sob. at bedside; I updated him. despite hypotension earlier in day yesterday she tolerated 2L UF; for swallow eval this am. Review of Systems 2 Review of Systems: All systems reviewed & are unremarkable except as noted in Subjective Physical Exam 2 Constitutional: well developed, well nourished and + altered mental status; no acute distress ENMT: Mouth: + dry oral mucous membranes Respiratory: normal respiratory effort; no respiratory distress, no labored breathing, no cough and not tachypneic Auscultation: + diminished lung sounds Cardiovascular: Rate/Rhythm: regular rate (HS distant) and regular rhythm E xtremities: no edema Gastrointestinal (Abdomen): Inspection/Auscultation: normal bowel sounds P ercussion/Palpation: abdomen soft; abdomen nontender Skin: no rashes, warm and dry Results & Data Vital Signs (Past 12 Hours) Vital Signs Temp Pulse Resp BP Pulse Ox O2 Del Method O2 Flow Rate 02/18/24 07:51 Nasal Cannula 2 02/18/24 07:38 36.6 C 67 16 137/77 96 Nasal Cannula 3 Laboratory Results 02/18/24 07:49 02/18/24 07:[address] head 1. No acute intracranial hemorrhage or mass effect. 2. 1.8 cm hypodense focus within the periventricular left frontal lobe which involves the mota radiata and possibly the left caudate nucleus. This could reflect an age indeterminate infarct or small vessel disease. (3) Hypotension Hypotension type: unspecified hypotension type Qualified Code(s): I95.9 - Hypotension, unspecified
--- OUTSIDE RECORDS SUMMARY | 2024-02-18 13:08 | External Medical Summary | Summary of Care ---
Author Name Unknown Organization [facility] Address [address] [place] [address] Phone [phone] Care Team Providers Care Mammography Supervisor Name Role Phone Howie Gilbert MD Primary Care Provide r Reason for Visit * Reason Onset Date Comments Longterm Visit 02/11/2024 Regulatory Encounter Details Date Type Department Care Team (Latest Contact Info) Description 02/11/2024 9:30 AM EST Longterm Visit [facility] at [address] [place] [address] Howie Gilbert MD [address] [place] [address] [place] [phone] 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HCC)*; Current moderate episode of major depressive disorder, unspecified whether recurrent (HCC); Diabetes mellitus with ESRD (end-stage renal disease) ([facility]); Primary parkinsonism ([facility]); 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 factor ([facility]); COPD, group B, by GOLD 2017 classification ([facility]); Chronic heart failure with preserved ejection fraction ([facility]); AVF (arteriovenous fistula) ([facility]); Anemia in end-stage renal disease ([facility]); Orthostatic hypotension; Sinus bradycardia; Morbid (severe) obesity due to excess calories ([facility]) Allergies No known active allergiesdocumented as of this encounter (statuses as of 02/11/2024) Medications ONETOUCH DELICA LANCETS 33G MISC Up to 4 times daily 100 Each 6 015 Active Glucose Blood (ONETOUCH ULTRA BLUE) STRP Use as directed 4 times a day as needed (Diabetes). Use up to four times a day as directed 100 Strip 11 018 Active Nebulizers (NEBULIZER COMPRESSOR) MISCIndications:C OPD, group B, by GOLD 2017 classification ([facility]) Inhale via nebulizer. Use as directed. 1 Each 1 019 Active Melatonin 10 MG Tablet Take 1 Tablet by mouth every night at bedtime. Active acetaminophen (TYLENOL) 325 MG Tablet Take 2 Tabs by mouth every 6 hours as needed for Pain. 30 Tab 020 Active EPINEPHrine, Anaphylaxis, 1 MG/ML SOLN Inject 0.3 mL as directed as needed for Anaphylaxis (severe allergic reaction). 0.3 mL Active Aspirin 81 MG Oral Tablet Delayed ReleaseIndication s:ASCVD (arteriosclerotic cardiovascular disease) Take 2 Tablets by mouth in the morning. 30 Tab 5 020 Active Meclizine HCl 12.5 MG Oral Tablet (ANTIVERT) Take 1 Tablet by mouth 3 times a day as needed. 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 60 Each 022 Active Auryxia 1 GM 210 MG(Fe) Oral Tablet TAKE 1 TABLET BY MOUTH THREE TIMES A DAY WITH MEALS. SWALLOW WHOLE, DO NOT CHEW OR CRUSH MEDICATION 023 Active Nanci-Jazmine Oral Tablet Take 1 Tablet by mouth in the morning. 023 Active Lidocaine-Priloca ine 2.5-2.5 % External Cream (Emla) APPLY SMALL AMOUNT TO ACCESS SITE (AVF) 1 TO 2 HOURS BEFORE DIALYSIS. COVER WITH OCCLUSIVE DRESSING (SARAN WRAP) 30 g 11 3 10:42 AM EST 023 Active Nystatin 412328 UNIT/GM External Powder (Nystop) Apply topically to affected area 2 times a day. 60 g 5 3 10:42 AM EST 023 Active Pantoprazole Sodium 20 MG Oral Tablet Delayed Release (Protonix) Take 1 Tablet by mouth in the morning and 1 Tablet in the evening. 180 Tablet 1 3 1:58 PM EDT Active CPAP every night at bedtime. Active Coloplast PasteIndications: Hemorrhoids, external without complications Use to hemorrhoids 1-2 times per day as needed for hemorrhoids 57 g 3 023 Active Hydrocortisone (Perianal) 2.5 % External Cream (Procto-Med HC)Indications:He morrhoids, external without complications Administer into the rectum daily as needed for Hemorrhoids. 28 g 2 023 Active Calmoseptine 0.44-20.6 % External Ointment (Menthol-Zinc Oxide) Apply 113 g topically to affected area as needed for Hemorrhoids. Apply to buttocks Active Pregabalin 100 MG Oral Capsule (Lyrica)Indicatio ns:Primary parkinsonism (HCC) Take 1 capsule by mouth twice daily. May take 1 extra capsule after dialysis 3 days a week 72 Capsule 5 Active Atorvastatin Calcium 80 MG Oral Tablet (Lipitor) Take 1 Tablet by mouth every night at bedtime. 30 Tablet Active Midodrine HCl 5 MG Oral Tablet (Proamatine) Take 1 Tablet by mouth in the morning and 1 Tablet at noon and 1 Tablet in the evening. Active Carbidopa-Levodop a 25-100 MG Oral Tablet (Sinemet) Take 1 Tablet by mouth in the morning and 1 Tablet at noon and 1 Tablet before bedtime. Active Docusate Sodium 100 MG Oral Capsule (Colace)Indicatio ns:Chronic idiopathic constipation Take 1 Capsule by mouth in the morning. Active Levothyroxine Sodium 125 MCG Oral Tablet (Levoxyl) Take 1 Tablet by mouth daily first thing in the morning. Active Diclofenac Sodium 1 % External Gel (Voltaren) Apply 2 g topically to affected area in the morning and 2 g at noon and 2 g in the evening and 2 g before bedtime. Apply to left shoulder. Active Vitamin D 25 MCG (1000 UT) Oral Tablet Take 1 Tablet by mouth in the morning. Active Ondansetron HCl 4 MG Oral Tablet Take 1 Tablet by mouth every 6 hours as needed for Nausea. Active Acetaminophen 500 MG Oral Tablet (Tylenol) Take 1 Tablet by mouth in the morning and 1 Tablet at noon and 1 Tablet in the evening and 1 Tablet before bedtime. Active Escitalopram Oxalate 10 MG Oral Tablet (Lexapro) Take 1 Tablet by mouth in the morning. Active Sertraline HCl 100 MG Oral Tablet (Zoloft) Take 1 Tablet by mouth in the morning. 2023 Discontinued Sertraline HCl 50 MG Oral Tablet (Zoloft) Take 1 Tablet by mouth in the morning. 2023 Discontinued documented as of this encounter (statuses as of 02/11/2024) Active Problems Problem Noted Date Diagnosed Date Current moderate episode of major depressive dis order 02/11/2024 History of 2019 novel coronavirus disease (COVID -19) 12/04/2023 Sinus bradycardia 11/04/2023 Orthostatic hypotension 11/04/2023 History of colon polyps 05/05/2023 Full code status 03/27/2023 Morbid (severe) obesity due to excess calories 0 03/19/2023 Chronic kidney disease-mineral and bone disorder 03/10/2023 Anemia in end-stage renal disease 03/10/2023 ESRD (end stage renal disease) on dialysis 03/09 Acquired hypothyroidism 06/17/2022 Assessment & Plan (08/09/2022 10:58 AM EDT): TSH ordered Continue Synthroid Assessment & Plan (06/17/2022 1:53 PM EDT): Continue Synthroid Dementia associated with Parkinson's disease Assessment & Plan (08/09/2022 10:59 AM EDT): Baseline -continue carbidopa levodopa, Lyrica AVF (arteriovenous fistula) 08/16/2020 History of CVA (cerebrovascular accident) 2019 Assessment & Plan (08/09/2022 11:00 AM EDT): Continue aspirin, atorvastatin Personal history of fall 10/21/2019 Diabetes mellitus with ESRD (end-stage renal dis ease) 09/27/2019 Overview: Per CKD protocol Iron deficiency anemia due to chronic blood loss 04/26/2019 Assessment & Plan (06/17/2022 1:52 PM EDT): Hemoglobin 10.2 on 05/25/2022 COPD, group B, by GOLD 2017 classification 03/23 Assessment & Plan (08/09/2022 10:57 AM EDT): COPD "RED FLAG" COPD symptoms: o NO IDENTIFIED SYMPTOMS Medication Regimen o Breo-noncompliant Exacerbation Mgt: o No exacerbations in the past 3 months o Rescue Kit in place in Medication List: No. o Used rescue kit in the past month: No o Required IM or IV steroids (Solumedrol) since last visit: No Noncompliant with Breo Assessment & Plan (06/17/2022 1:51 PM EDT): COPD "RED FLAG" COPD symptoms: o NO [...] failure with preserved ejection fr action 03/23/2019 Overview (06/17/2022): Echo 2019 EF 50% Grade 1 diastolic dysfunction Assessment & Plan (08/09/2022 11:06 AM EDT): Current Status: "Stable" for patient / At [...] Comments: hd Exacerbation Plan o Chest X-Ray Assessment & Plan (06/17/2022 1:40 PM EDT): Euvolemic today. Heart Failure "RED FLAG" HF [...] No. Venous stasis dermatitis of both lower extremiti es 12/13/2018 History of non-ST elevation myocardial infarctio n (NSTEMI) 08/24/2018 Assessment & Plan (08/09/2022 11:01 AM EDT): Stable. No angina. -continue atorvastatin, baby aspirin. Not on beta-tanner. BP will not tolerate Assessment & Plan (06/17/2022 1:54 PM EDT): No angina -follows with Cardiology Primary parkinsonism 12/09/2017 Assessment & Plan (06/17/2022 1:53 PM EDT): Continue carbidopa levodopa Rheumatoid arthritis involvi ng both hands with positive rheumatoid factor 07/18/2016 RENÉ on CPAP 04/03/2015 Assessment & Plan (08/09/2022 10:57 AM EDT): Compliant with CPAP Restless leg syndrome 08/14/2012 Obesity 08/28/2009 Overview (08/05/2019): bmi [address] More specific code on pl Per Obesity Protocol, #19 Steatohepatitis, non-alcoholic 07/11/2009 Hypothyroidism due to acquired atrophy of thyroi d 06/27/2009 Meniere's disease, cochlear, active 10/07/2006 Dyslipidemia, goal LDL below 100 AYSHA (generalized anxiety disorder) Assessment & Plan (08/09/2022 11:00 AM EDT): Stable on sertraline documented as of this encounter (statuses as of 02/11/2024) Resolved Problems Problem Noted Date Diagnosed Date Resolved Date Problem with dialysis access 03/09/2023 03/18/2023 UTI (urinary tract infection) 03/09/2023 03/19/2023 Serrated polyp of colon 09/20/202204/17 Overview (10/03/2022): 7 mm descending colon BMI 38.0-38.9,adult 09/12/2022 03/19/19 Overview (09/12/2022): 210 Major depressive disorder, r ecurrent episode, moderate 08/09/2022 08/09/2022 Assessment & Plan (06/17/2022 1:54 PM EDT): Stable on sertraline Rectal bleeding 08/09/2022 01/29/2023 Assessment & Plan (08/09/2022 11:02 AM EDT): Needs colonoscopy scheduled -[facility] Palliative care encounter 06/07/2021 Hypothyroidism 05/31/2021 05/27/2022 MDD (major depressive disord er), recurrent, in partial remission 08/16/2020 09/08/2020 Hypothyroidism, unspecified 08/16/2020 09/08/2020 Dependence on renal dialysis 12/03/2019 03/19/2023 Assessment & Plan (08/09/2022 10:59 AM EDT): continue Auryxia , nephrovite Body mass index [...] chronic kidney disease on dialysis 08/05/2019 03/19/2023 Assessment & Plan (08/09/2022 10:56 AM EDT): Dialysis Friday, , Friday. Hypotensive today, however the patient just woke up in his lying in bed. Asymptomatic. -continue Imdur Assessment & Plan (06/17/2022 1:41 PM EDT): Euvolemic today. BP stable. -continue dialysis Friday, Friday, Friday -continue Imdur Multiple falls 04/20/2019 11/26/2019 Overview (11/26/2019): History of falls on the pl SDH (subdural hematoma) 04/20/201907/16 Overview (08/05/2019): acute Ecchymosis 04/20/2019 09/08/2020 Old myocardial infarct [...] goal of less than 7.0% 10/23/2011 03/19/2023 Overview (07/11/2015): ICD-10 update of inactive term Type 1 diabetes mellitus wit h hemoglobin A1c goal of less than 7.0% 11/10/2009 10/23/2011 Overview (07/17/2015): ICD-10 update of inactive term Venous thrombosis 03/08/2008 10/25/2008 Anticoagulation management encounter 03/08/2008 10/25/2008 ADVANCE DIRECTIVE INFORMATION 08/02/2005 01/19/2024 Overview (08/02/2005): Yes-advised to bring copy in to be scanned into EMR Essential hypertension with goal blood pressure less than 140/90 05/14/2005 06/17/2022 Encounter for long-term (cur rent) use of medications 01/18/2005 02/03/2006 Overview (01/07/2017): ICD-10 update of inactive term Tobacco use disorder 08/11/2001 016 PURE HYPERCHOLESTEROLEM 02/15/200002/14 Overview (03/02/2009): Per Lipid Taxonomy. Allergic rhinitis 02/15/2000 08/05/2019 Overview (08/05/2019): acute Menopause 12/06/1998 02/03/2006 ADJ DISORDER W/DEPRES MOOD 12/06/1998 0 09/08/2020 (HFpEF) heart failure with p reserved ejection fraction 11/26/2019 Overview (11/26/2019): More specific code on the pl Mild neurocognitive disorder 03/19/2023 documented as of this encounter (statuses as of 02/11/2024) Immunizations Name Administration Dates Next Due COVID-19 mRNA, LNP-s, No Pre serve, 2-Dose Series (IntellectSpace) 01/02/2021,06/21/2020,05/24/2020 COVID-19, mRNA, LNP-s, PF, B ooster, 100mcg/0.5mg (Moderna) 07/23/2021 Covid-19, Mrna, Lnp-s, Pf, B ivalent, 50 Mcg, IM, 12 yrs and above (Moderna) 01/17/2022 Pneumococcal Conjugate Vacc, 13 Valent (Prevnar) 10/28/2014 Pneumococcal Polysaccharide PPV23 (Pneumovax) 03/22/2016,12/04/2009 Seasonal Influenza Vac., MDV , IM, 0.5 mL (Fluzone) 11/22/2013,12/25/2012,12/24/2011,12/04,12/08/2008,12/25/2007,01/19/2007 ,01/21/2006 Seasonal Influenza, PF, 6 M & above, IM , (FluLaval or Fluzone) 12/29/2021,01/03/2019,12/09/2017 Seasonal Influenza, Quadriva lent Hd (Fluzone Hd) 05/31/2021 Seasonal Influenza, Quadriva lent Hd, 65+ Yrs 11/16/2019 Seasonal Influenza, Quadriva lent, No Preserve, IM 11/25/2016,11/23/2015,12/26/2014 TDAP, Age 7 and older, IM (Adacel) [...] in the Last Year Never true 01/21/2019 Personal Safety Answer Date Recorded Do you feel unsafe or have concerns for your saf ety? No 03/09/2023 Do you have concerns for you r family's safety? (Household - for ages 0-17 years) Not on file 03/09/2023 Utilities Answer Date Recorded Do you have trouble paying y our heating, water, or electric bill? No 03/09/2023 Is your family able to pay t he heat, water, or electric bill? (Household - for ages 0-17 years) Not on file 03/09/2023 Does your family have access to good internet? (Household - for ages 0-17 years) Not on file 03/09/2023 Transportation Needs Answer Date Record ed READ ONLY Do you have troubl e getting a ride to medical visits or work? Never True 03/09/2023 Does your family have a hard time getting a ride to doctors visits? (Household - for ages 0-17 years) Not on file 03/09/2023 Has lack of transportation k ept you from medical appointments, meetings, work, or from getting things needed for daily living? Check all that apply. (Adult - for ages 18 years and over) Not on file 03/09/2023 Do you (or your family) have trouble finding or paying for a ride (transportation)? (Household - for ages 0-17 years) Not on file 03/09/2023 Housing Stability Answer Date Recorded Do you currently live in a s helter or have no steady place to sleep at night? (Adult - for ages 18 years and over) Not on file 03/09/2023 READ ONLY Do you think you a re at risk of becoming homeless? No 03/09/2023 Does your family worry about paying for your home or becoming homeless? (Household - for ages 0-17 years) Not on file 1 05/10/2022 Are you homeless or worried that you might be in the future? (Adult - for ages 18 years and over) Not on file Are you (or your family) vicky eless or worried that you might be in the future? (Household - for ages 0-17 years) Not on file Food Insecurity Answer Date Recorded Do you need food for this week? No 03/09/2023 Are you able to get enough f ood for your family? (Household - for ages 0-17 years) Not on file 03/09/2023 Does your family need food t his week? (Household - for ages 0-17 years) Not on file 03/09/2023 Do you always have enough fo od for your family? 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 Answer Date of Assessment Author No 03/09/2023 3:55 AM Rosa Alfaro RN * Are you blind or do you have serious difficulty seeing, even when wearing glasses? Answer Date of Assessment Author No 03/09/2023 3:55 AM Rosa Alfaro RN * Do you have serious difficulty walking or climbing stairs? (5 years old or older) Answer Date of Assessment Author Yes 03/09/2023 3:55 AM Rosa Alfaro RN * Do you have difficulty dressing or bathing? (5 years old or older) Answer Date of Assessment Author Yes 03/09/2023 3:55 AM Rosa Alfaro RN * Because of a physical, mental, or emotional condition, do you have difficulty doing errands alone such as visiting a doctors office or shopping? (15 years old or older) Answer Date of Assessment Author No 03/09/2023 3:55 AM Rosa Alfaro RN documented as of this encounter Mental Status * Because of a physical, mental, or emotional condition, do you have serious difficulty concentrating, remembering, or making decisions? (5 years old or older) Answer Entry Date Author No 03/09/2023 3:55 AM Rosa Alfaro RN documented in this encounter Progress Notes * Howie Gilbert MD - 02/11/2024 1:21 PM EST Regulatory Visit TRANSITION EVENT: Type: Regulatory visit Date: February 10 Code Status: Full Code Name: Kami Hassan Date of : 1945 This note pertains to care provided at [facility]. Please see facility medical record for original note. This note is not to be edited or addended in [facility]. Editing or addending needs to occur in the facilities medical record. S: Kami Hassan seen today as part of a regulatory visit. Has history of : Patient Active Problem List Diagnosis Meniere's disease, cochlear, active Hypothyroidism due to acquired atrophy of thyroid Steatohepatitis, non-alcoholic Obesity Restless leg syndrome Dyslipidemia, goal LDL below 100 AYSHA (generalized anxiety disorder) RENÉ on CPAP 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 factor (HCC) Primary parkinsonism ([facility]) History of non-ST elevation myocardial infarction (NSTEMI) Venous stasis dermatitis of both lower extremities COPD, group B, by GOLD 2017 classification ([facility]) Chronic heart failure with preserved ejection fraction (HCC) Iron deficiency anemia due to chronic blood loss 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) Personal history of fall History of CVA (cerebrovascular accident) AVF (arteriovenous fistula) (HCC) 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HCC) Acquired hypothyroidism ESRD (end stage renal disease) on dialysis (HCC) 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) Morbid (severe) obesity due to excess calories (HCC) Full code status History of colon polyps Sinus bradycardia Orthostatic hypotension History of 2019 novel coronavirus disease (COVID-19) Current moderate episode of major depressive disorder (HCC) Past Medical History: Diagnosis Date (HFpEF) heart failure with preserved ejection fraction (HCC) Acute on chronic diastolic (congestive) heart failure (HCC) 03/04/2020 [facility] Allergic rhinitis 02/15/2000 acute BMI 38.0-38.9,adult 08/28/2009 Chronic Sinusitis Unspecified Controlled substance agreement signed 11/25/2016 COVID-19 10/23/2021 Cystitis 05/23/2022 admitted [facility] home on cefuroxime Dyslipidemia, goal [...] myocardial infarction) (HCC) 09/03/2018 Parkinson disease (HCC) Rectal bleeding Restless leg syndrome Rheumatoid arthritis [...] 09/20/2022 serrated polyp, fair prep / [facility] EGD, FLEXIBLE, DIAGNOSTIC 04/19/2022 esophagitis, repeat 8-12 wks / [facility] EGD, FLEXIBLE, DIAGNOSTIC 06/26/2022 normal, retained food / [facility] EGD, FLEXIBLE, DIAGNOSTIC N/A 01/24/2023 normal/EGD/PR EXPLORATION OF MAXILLARY SINUS 03/17/1995 Sinus Surgery HYSTEROSCOPY,DIAGNOSTIC 2022 atrophic endometrium, endometrial polyp INJECTION LUMBAR/SACRAL 07/31/2015 INJECTION SPINE LUMBAR OR SACRAL performed by Welcome Jenni Prado DO at OR [facility] INJECTION LUMBAR/SACRAL 08/15/2015 INJECTION SPINE LUMBAR OR SACRAL performed by Welcome Jenni Prado DO at OR [facility] MARLI CAT,W/O PUMP;5YR/OLD N/A 11/04/2019 INSERT TUNNELED CENTRAL VENOUS CATHETER AGE 5 OR OLDER performed by Ortega Montez DO at OR [facility] MARLI CAT,W/O PUMP;5YR/OLD Right 03/09/2023 [...] 3rd toe nerve decompression, Dr. Del Real [place] COLSC FLX W/RMVL OF TUMOR POLYP LESION [...] date: 04/20/1938 Quit date: 04/20/1989 Years since quittin.8 Smokeless tobacco: Never Tobacco comments: smoked since 19 years of age. Smokes a pack every 3-4 days. Vaping Use Vaping status: Never Used Substance and Sexual Activity Alcohol use: Never Drug use: Never Sexual activity: Not Currently Partners: Male Other Topics Concern Not on file Social History Narrative Merged History Encounter Retired Section[employer] Social Needs Financial Resource Strain: Not on file Food [...] 0-17 years): Not on file Social Connections: Not on file Housing Stability: Low Risk [...] now having acute problem(s). Current problems include patient underwent depression screeningwhile at dialysis today and scored 20 (severe depression). Reviewed this with patient when she returned to facility. She states she is feeing sad today because tomorrow is Thanksgiving and she was hoping to go home for the day and has not heart from family about this. 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 She admits to feeling sad about this. She denies thoughts of harming herself. Patient noted on the questionnaire that she has trouble sleeping but staff note that she sleeps soundly all night and has not had issues with insomnia. Social work note from dialysis notes that is currently undergoing chemotherapy for liver cancer and has not been able to come visit. Discussed medication change and patient states it is OK either way. Is having pain issues. Pain being treated with routine acetaminophen and diclofenac get. Is not having behavioral problems. Results for orders placed or performed in visit on 09/22/23 HEMOGLOBIN A1C Result Value Ref Range Hemoglobin A1C 5.4 4.0 - 5.6 % Estimated Average Glucose 108 <126 mg/dL TSH WITH FREE T4 IF INDICATED Result Value Ref Range TSH 2.54 0.27 - 4.20 uIU/mL LIPID PANEL WITHOUT DIRECT LDL Result Value Ref Range Triglycerides 159 <=174 mg/dL Cholesterol 141 <200 mg/dL HDL Cholesterol 50 >49 mg/dL Non-HDL Cholesterol 91 <=159 mg/dL LDL Cholesterol 59 <=129 mg/dL *Note: Due to a large number of results and/or encounters for the requested time period, some results have not been displayed. A complete set of results can be found in Results Review. ROS: CONSTITUTIONAL: No change in weight, No [...] No cough, sputum, or hemoptysis, No wheezing, and No recent change in breathing CARDIOVASCULAR: No chest pain, No shortness of breath, No orthopnea, No paroxysmal nocturnal dyspnea, No palpitations, No syncope +CHF GASTROINTESTINAL: No abdominal pain, No change in bowel habits, No significant heartburn, No significant change in appetite, No hematemesis, No blood in stools or black tarry stools, No abdominal bloating or early satiety, and No dysphagia FEMALE: No dysuria, No frequency, and +dialysis HEMATOLOGIC: No coagulation disorder, No abnormal bleeding, No chills, No weight loss, and +anemia of CKD EXTREMITIES: +OA SKIN/INTEGUMENTARY: No rash NEUROLOGIC: +Parkinson's disease and dementia PSYCHIATRIC: +depression and anxiety O: I reviewed the most recent facilities vitals. General: alert, no distress, well nourished, well developed, and obese Head: Normocephalic, No masses, lesions, tenderness or abnormalities Neuro: no focal motor/sensory deficits, alert and oriented, poor short term memory Eye Exam: PERRLA, extraocular movements intact, conjunctiva [...] Extremities: no edema, no clubbing, no cyanosis A: 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HCC) (Primary)--stable. No behavioral issues. Current moderate episode of major depressive disorder, unspecified whether recurrent ([facility])--scored high on depression screening at dialysis. Patient admits to feeling a bit more down with Thanksgiving coming tomorrow and not being able to go home. has been ill. Her sertraline was reduced from 100 mg to 50 mg 11/21/23 at cardiology recommendation due to frequent symptomatic episodes of bradycardia and hypotension requiring hospitailzation. Has been doing better since the dose reduced so cannot increase sertraline. Will taper off sertraline (25 mg x 1 week and then d/c) and start Lexapro 10 mg daily. Diabetes mellitus with ESRD (end-stage renal disease) ([facility])--continue dialysis. Diabetes well controlled without medications. Primary parkinsonism ([facility])--continue Sinemet TID. 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 factor ([facility])--not on DMARDs. Continue acetaminophen and diclofenac gel. COPD, group B, by GOLD 2017 classification ([facility])--no recent flares. Continue Breo. Chronic heart failure with preserved ejection fraction ([facility])--fluid volume managed by dialysis and 1500 ml fluid restriction. AVF (arteriovenous fistula) ([facility])--being used for dialysis access. Anemia in end-stage renal disease ([facility])--continue Auryxia and Nanci-jazmine Orthostatic hypotension--continue midodrine 5 mg TID and 10 mg in AM of dialysis days Sinus bradycardia--improved since sertraline dose reduced to 50 mg as above. P: Medications reviewed. Please refer to MAR in the facility's medical record for the most up-to-date medication list. Continue present medication(s):, Begin medication(s): Lexapro 10 mg daily, and Discontinue medication(s): sertraline 50 mg daily (after short taper) Reviewed custodial record for: vital signs, weight, bowel, and bladder function, and ADLs. Labs reviewed Continue current treatment plan as ordered Continue to follow up as needed and as scheduled [facility] Treatment Given: n/a Electronically signed by: Howie Gilbert MD I spent a total of 30-39 minutes (exact time 35 mins) on the date of service in [...] 3) 12/18/2011 10/23/2011 Depression Screening 01/22/2020 01/21/2019 Adult Wellness Visit 08/16/2021 08/16/2020 COVID-19 Vaccine (2023-2 5 season) 2023 01/17/2022, 07/23/2021, 01/02/2021, Additional history exists Influenza Vaccine (FLU shot) (#1) 2023 01/02/2023, 12/29/2021, 12/04/2021, Additional history exists O2 ASSESSMENT COMPLETED IN P AST YEAR FOR COPD 03/09/2024 03/09/2023 TSH 09/21/2024 09/22/2023, 07/16, 05/31/2021, Additional history exists Diabetic Foot Exam Discontinued 08/16/2020, 0 08/26/2019, 08/04/2018, Additional history exists Diabetic Eye Exam Discontinued 12/05/2021, , 03/23/2018, Additional history exists Colonoscopy Discontinued 09/20/2022, 11/15, 11/27/2015, Additional history exists Colorectal Cancer Screening Discontinued Cologuard Discontinued Fecal Occult Blood Test Discontinued Sigmoidoscopy Discontinued documented as of this encounter Medical Devices Not on filedocumented as of this encounter Visit Diagnoses Diagnosis Advanced care planning/counseling discussion- Primary Other specified counseling Chronic heart failure with preserved ejection fraction (HCC) Hypothyroidism, unspecified type Dyslipidemia, goal LDL below 100 Other and unspecified hyperlipidemia History of non-ST elevation myocardial infarction (NSTEMI) Old myocardial infarction 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 factor (HCC) 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) COPD, group B, by GOLD 2017 classification ([facility]) Iron deficiency anemia due to chronic blood loss Iron deficiency anemia secondary to blood loss (chronic) Primary parkinsonism (HCC) Paralysis agitans Major depressive disorder, recurrent episode, moderate (HCC) Major depressive disorder, recurrent episode, moderate Fatigue, unspecified type- Primary AVF (arteriovenous fistula) (HCC) Arteriovenous fistula, acquired Chronic heart failure with preserved ejection fraction (HCC) 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) COPD, group B, by GOLD 2017 classification ([facility]) RENÉ on CPAP Obstructive sleep apnea (adult) [...] Rectal bleeding Hemorrhage of rectum and anus 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[facility])- Primary Current moderate episode of major depressive disorder, unspecified whether recurrent (HCC) Diabetes mellitus with ESRD (end-stage renal disease) ([facility]) Type II or unspecified type diabetes mellitus with renal manifestations, not stated as uncontrolled Primary parkinsonism (HCC) Paralysis agitans 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 factor (HCC) COPD, group B, by GOLD 2017 classification (HCC) Chronic heart failure with preserved ejection fraction (HCC) AVF (arteriovenous fistula) (HCC) Arteriovenous fistula, acquired Anemia in end-stage renal disease (HCC) Anemia in chronic kidney disease Orthostatic hypotension Sinus bradycardia Other specified cardiac dysrhythmias Morbid (severe) obesity due to excess calories ([facility]) documented in this encounter Advance Directives Documents on File Type Date Recorded Patient Toll Line Mechanic Expl anation Power of Pass Worker 12/16/2018 10:33 AM Nate r of Pass Worker * Full Code (Latest Code Status on [...] Hassan Spouse Health Care Agent Care Teams Mammography Supervisor Relationship Specialty Start Date End Date Howie Gilbert MD [address] [place] [address] [place] [id number] PCP - General Family Medicine 11/14/23 documented as of this encounter
--- OUTSIDE RECORDS SUMMARY | 2024-02-18 13:08 | External Medical Summary | Summary of Care ---
Author Name Unknown Organization [facility] Address [address] [place] [address] Phone [phone] Care Team Providers Care Farm Adviser Name Role Phone Howie Gilbert MD Primary Care Provide r Reason for Visit * Reason Onset Date Comments Complicated Acute Visit 02/16/2024 Encounter Details Date Type Department Care Team (Latest Contact Info) Description 02/16/2024 1:00 PM EST Halfway Visit [facility] [address] [place] [address] Nae Rodriges PA-C [address] [place] [address] Dyspnea, unspecified type*; Wheezing; Confusion; 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HCC); Chronic heart failure with preserved ejection fraction (HCC); COPD, group B, by GOLD 2017 classification (HCC); RENÉ on CPAP Allergies No known active allergiesdocumented as of this encounter (statuses as of 02/16/2024) Medications ONETOUCH DELICA LANCETS 33G MISC Up to 4 times daily 100 Each 6 11/25/19 15 Active Glucose Blood (ONETOUCH ULTRA BLUE) STRP Use as directed 4 times a day as needed (Diabetes). Use up to four times a day as directed 100 Strip 11 02/04/20 18 Active Nebulizers (NEBULIZER COMPRESSOR) MISCIndications:CO PD, group B, by GOLD 2017 classification ([facility]) Inhale via nebulizer. Use as directed. 1 Each 1 11/28/19 19 Active Melatonin 10 MG Tablet Take 1 Tablet by mouth every night at bedtime. Active acetaminophen (TYLENOL) 325 MG Tablet Take 2 Tabs by mouth every 6 hours as needed for Pain. 30 Tab 04/27/19 20 Active EPINEPHrine, Anaphylaxis, 1 MG/ML SOLN Inject 0.3 mL as directed as needed for Anaphylaxis (severe allergic reaction). 0.3 mL 10/14/19 20 Active Aspirin 81 MG Oral [...] )Indications:COPD, group B, by GOLD 2017 classification ([facility]) Inhale by mouth 1 Puff in the morning. 60 Each 08/23/19 22 Active Auryxia 1 GM 210 MG(Fe) Oral Tablet TAKE 1 TABLET BY MOUTH THREE TIMES A DAY WITH MEALS. SWALLOW WHOLE, DO NOT CHEW OR CRUSH MEDICATION 05/11/19 23 Active Nanci-Samuel Oral Tablet Take 1 Tablet by mouth in the morning. 05/17/19 23 Active Lidocaine-Prilocai ne 2.5-2.5 % External Cream (Emla) APPLY SMALL AMOUNT TO ACCESS SITE (AVF) 1 TO 2 HOURS BEFORE DIALYSIS. COVER WITH OCCLUSIVE DRESSING (SARAN WRAP) 30 g 11 02/13/2023 10:42 AM EST 11/10/19 23 Active Nystatin 323661 UNIT/GM External Powder (Nystop) Apply topically to affected area 2 times a day. 60 g 5 02/13/2023 10:42 AM EST 11/10/19 23 Active Pantoprazole Sodium 20 MG Oral Tablet Delayed Release (Protonix) Take 1 Tablet by mouth in the morning and 1 Tablet in the evening. 180 Tablet 1 11/27/2022 1:58 PM EDT 11/28/19 23 Active CPAP every night at bedtime. Active Coloplast PasteIndications:H emorrhoids, external without complications Use to hemorrhoids 1-2 times per day as needed for hemorrhoids 57 g 3 03/13/20 23 Active Hydrocortisone (Perianal) 2.5 % External Cream (Procto-Med HC)Indications:Hem orrhoids, external without complications Administer into the rectum daily as needed for Hemorrhoids. 28 g 2 03/13/20 23 Active Calmoseptine 0.44-20.6 % External Ointment (Menthol-Zinc Oxide) Apply 113 g topically to affected area as needed for Hemorrhoids. Apply to buttocks Active Pregabalin 100 MG Oral Capsule (Lyrica)Indication s:Primary parkinsonism (HCC) Take 1 capsule by mouth twice daily. May take 1 extra capsule after dialysis 3 days a week 72 Capsule 5 08/13/19 24 Active Atorvastatin Calcium 80 MG Oral Tablet (Lipitor) Take 1 Tablet by mouth every night at bedtime. 30 Tablet 11/04/19 24 Active Midodrine HCl 5 MG Oral Tablet (Proamatine) Take 1 Tablet by mouth in the morning and 1 Tablet at noon and 1 Tablet in the evening. 11/04/19 Active Carbidopa-Levodopa 25-100 MG Oral Tablet (Sinemet) Take 1 Tablet by mouth in the morning and 1 Tablet at noon and 1 Tablet before bedtime. 11/04/19 Active Docusate Sodium 100 MG Oral Capsule (Colace)Indication s:Chronic idiopathic constipation Take 1 Capsule by mouth in the morning. 11/04/19 Active Levothyroxine Sodium 125 MCG Oral Tablet (Levoxyl) Take 1 Tablet by mouth daily first thing in the morning. 11/04/19 Active Diclofenac Sodium 1 % External Gel (Voltaren) Apply 2 g topically to affected area in the morning and 2 g at noon and 2 g in the evening and 2 g before bedtime. Apply to left shoulder. 11/04/19 Active Vitamin D 25 MCG (1000 UT) Oral Tablet Take 1 Tablet by mouth in the morning. 11/04/19 Active Ondansetron HCl 4 MG Oral Tablet Take 1 Tablet by mouth every 6 hours as needed for Nausea. 11/04/19 Active Acetaminophen 500 MG Oral Tablet (Tylenol) Take 1 Tablet by mouth in the morning and 1 Tablet at noon and 1 Tablet in the evening and 1 Tablet before bedtime. 11/11/19 Active Escitalopram Oxalate 10 MG Oral Tablet (Lexapro) Take 1 Tablet by mouth in the morning. 02/11/20 Active documented as of this encounter (statuses as of 02/16/2024) Active Problems Problem Noted Date Diagnosed Date [...] as of this encounter (statuses as of 02/16/2024) Resolved Problems Problem Noted Date Diagnosed Date [...] (08/09/2022 11:02 AM EDT): Needs colonoscopy scheduled -[facility] Palliative care encounter 06/07/2021 Hypothyroidism 05/31/2021 05/27/2022 [...] on the pl SDH (subdural hematoma) 04/20/2019 052 03/2019 Overview (08/05/2019): acute Ecchymosis 04/20/2019 09/08/2020 Old [...] as of this encounter (statuses as of 02/16/2024) Immunizations Name Administration Dates Next Due COVID-19 mRNA, LNP-s, No Pre serve, 2-Dose Series ([employer]) 01/02/2021,06/21/2020,05/24/2020 COVID-19, mRNA, LNP-s, PF, B ooster, [...] Rosa Alfaro RN documented in this encounter Plan of Treatment Scheduled Procedures Name Priority Associated Diagnoses Date/Ti me COLONOSCOPY FLEXIBLE PROXIMA L DIAGNOSTIC Recall Encounter for screening colonoscopy Health Maintenance Due Date Last Done Comments Zoster Vaccines (2 of 3) 12/18/2011 10/23/2011 Depression Monitoring 01/22/2020 01/21/2019 Adult Wellness Visit 08/16/2021 08/16/2020 [...] COPD, group B, by GOLD 2017 classification ([facility]) Iron deficiency anemia due to [...] Rectal bleeding Hemorrhage of rectum and anus Dyspnea, unspecified type- Primary Wheezing Confusion Unspecified psychosis 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HCC) Chronic heart failure with preserved ejection fraction (HCC) COPD, group B, by GOLD 2017 classification ([facility]) RENÉ on CPAP Obstructive sleep apnea (adult) (pediatric) documented in this encounter Advance Directives Documents on File Type Date Recorded Patient Credentialing Analyst Expl anation Power of Project Manager Entertainment [employer] 12/16/2018 10:33 AM Nate r of Project Manager [employer] * Full Code (Latest Code Status on [...] Spouse Health Care Agent Care Teams Farm Adviser Relationship Specialty Start Date End Date Howie Gilbert MD [address] [place] [id number] PCP - General Family Medicine 11/14/23 documented as of this encounter
--- OUTSIDE RECORDS SUMMARY | 2024-02-18 13:09 | External Medical Summary | Summary of Care ---
Author Name Unknown Organization [facility] Address [address] [facility] [place] [address] Phone [phone] Care Team Providers Care Botany Laboratory Assistant Name Role Phone Howie Gilbert MD Primary Care Provide r Reason for Visit * Reason Onset Date Comments [facility]: Screening 02/04/2024 Encounter Details Date Type Department Care Team (Late st Contact Info) Description 02/04/2024 Telephone [facility], [facility] [address] [place] [id number] Briseida Batista, BUTTONHOLE FACER [address] [facility] [place] [address] [facility]: Screening Allergies No known active allergiesdocumented as of this encounter (statuses as of 02/04/2024) Medications ONETOUCH DELICA LANCETS 33G MISC Up [...] Anaphylaxis (severe allergic reaction). 0.3 mL 10/14/19 Active Aspirin 81 MG Oral Tablet Delayed ReleaseIndications :ASCVD (arteriosclerotic cardiovascular disease) Take 2 Tablets by mouth in the morning. 30 Tab 5 12/03/19 20 Active Meclizine HCl 12.5 MG Oral Tablet (ANTIVERT) Take 1 Tablet by mouth 3 times a day as needed. Active Breo Ellipta 200-25 MCG/INH Inhalation Aerosol Powder Breath Activated (fluticasone furoate-vilanterol )Indications:COPD, group B, by GOLD 2017 classification ([facility] [...] 10:42 AM EST 11/10/19 23 Active Nystatin 369794 UNIT/GM External Powder (Nystop) Apply topically to [...] and 1 Tablet in the evening. 11/04/19 24 Active Sertraline HCl 100 MG Oral Tablet (Zoloft) Take 1 Tablet by mouth in the morning. 11/04/19 Active Carbidopa-Levodopa 25-100 MG Oral Tablet [...] daily first thing in the morning. 11/04/19 24 Active Diclofenac Sodium 1 % External Gel [...] evening and 1 Tablet before bedtime. 11/11/19 24 Active documented as of this encounter (statuses as of 02/04/2024) Active Problems Problem Noted Date Diagnosed Date History of 2019 novel coronavirus disease (COVID [...] as of this encounter (statuses as of 02/04/2024) Resolved Problems Problem Noted Date Diagnosed Date [...] (08/09/2022 11:02 AM EDT): Needs colonoscopy scheduled -[facility] Palliative care encounter 06/07/2021 Hypothyroidism 05/31/2021 [...] pl SDH (subdural hematoma) 04/20/2019 05/2 03/2019 Overview (08/05/2019): acute Ecchymosis 04/20/2019 09/08/2020 [...] as of this encounter (statuses as of 02/04/2024) Immunizations Name Administration Dates Next Due COVID-19 mRNA, LNP-s, No Pre serve, 2-Dose Series ([employer]) 01/02/2021,06/21/2020,05/24/2020 COVID-19, mRNA, LNP-s, PF, B ooster, [...] Rosa Alfaro RN documented in this encounter Miscellaneous Notes * Telephone Encounter - Briseida Batista LPN - 02/04/2024 9:49 AM EST Kami Hassan was referred as a potential candidate for enrollment for [facility]. A review of this chart was completed and: Kami does not meet criteria for enrollment into [facility]. Referral Source: Monthly Proactive Eligibility List Criteria for Ineligibility: SNF Shelter Care Referring care team was notified via : Epic communication documented in this encounter Plan of Treatment Scheduled Procedures Name Priority Associated Diagnoses Date/Ti me COLONOSCOPY FLEXIBLE PROXIMA L DIAGNOSTIC Recall Encounter for screening colonoscopy Health Maintenance Due Date Last Done Comments Zoster Vaccines (2 of 3) 12/18/2011 10/23/2011 Depression Screening 01/22/2020 01/21/2019 Adult Wellness Visit 08/16/2021 08/16/2020 COVID-19 Vaccine (6 2023-2 5 season) 2023 01/17/2022, 07/23/2021, 01/02/2021, Additional [...] on File Type Date Recorded Patient Warp Tier Expl anation Power of Metal Roaster 12/16/2018 10:33 AM Nate r of Metal Roaster * Full Code (Latest Code Status on [...] Hassan Spouse Health Care Agent Care Teams Botany Laboratory Assistant Relationship Specialty Start Date End Date Howie Gilbert MD [address] [place] [id number] PCP - General Family Medicine 11/14/23 documented as of this encounter
--- OUTSIDE RECORDS SUMMARY | 2024-02-18 13:09 | External Medical Summary | Continuity Of Care Document ---
Author Name Unknown Address [address] [place] [address] Organization [facility] ( ) Care Team Providers Care Wall Man Name Role Phone Howie Gilbert Primary Care Provider [phone] Problems Code Description Start Date End Date Status I95.9 Hypotension, unspecified 10/30/2023 Active R00.1 Bradycardia, unspecified 10/30/2023 Active R41.0 Disorientation, unspecified 10/30/2023 Active N18.6 End stage renal disease 10/30/2023 A ctive R79.89 Other specified abno rmal findings of blood chemistry 10/30/2023 Active G20.A1 Parkinson's disease without dyskinesia, without mention of fluctuations 10/30/2023 Active G47.30 Sleep apnea, unspecified 10/30/2023 Active J96.02 Acute respiratory failure with hypercapnia 05/15 Active G93.41 Metabolic encephalopathy 05/27/2023 Active E11.9 Type 2 diabetes mellitus without [...] calories 03/18/2023 Active E78.5 Hyperlipidemia, unspecified 03/18/2023 Active J44.9 Chronic obstructive pulmonary disease, unspecified 03/18/2023 Active I63.9 Cerebral infarction, unspecified 03/18/2023 Active H91.90 Unspecified hearing loss, unspecified ear 03/18 Active I10. Essential (primary) hypertension 03/18/2023 Active I21.4 Non-ST elevation (NSTEMI) myocardial infarction 03/18/2023 Active M06.9 Rheumatoid arthritis, unspecified 03/18/2023 Active M62.81 Muscle weakness (generalized) 03/18/2023 Active U07.1 COVID-19 11/29/2023 Active J96.02 Acute respiratory failure with hypercapnia 05/15 Active M62.81 Muscle weakness (generalized) 05/28/2023 Active R53.1 Weakness 05/28/2023 Active I95.9 Hypotension, unspecified 11/03/2023 Active Z74.1 Need for assistance with personal care 11/03/19 Active VITAL SIGNS Date Time Diastolic blood pressure Systolic blood pressure Body height Body weight Temperature SpO2 Blood Sugar Pulse Respirations 001 38785 7 63.00 mm[Hg] - Sitting 141.00 mm[Hg] - Sitting 222.00 NI 98.10 Ear 63.00/ min 002 13258 9 221.20 NI 005 25142 9 59.00 mm[Hg] - Sitting 134.00 mm[Hg] - Sitting 98.30 X-Other 90.00 % 63.00/ min 20.00/min 016 37214 5 222.00 NI 59231 018 33921 9 222.60 NI 26777 023 49300 0 227.50 NI 98012 030 40809 1 222.00 NI Immunizations Vaccine Date Status COVID-19 05/24/2020 Completed COVID-19 06/21/2020 Completed COVID-19 01/02/2021 Completed COVID-19 07/23/2021 Completed COVID-19 07/24/2021 Completed COVID-19 01/17/2022 Completed Influenza 01/01/2023 Completed (PCV13)Pneumococcal 10/28/2014 Completed (PPSV23)Pneumococcal 03/22/2016 Completed Shingles 10/23/2011 Completed TDaP 06/27/2009 Completed
--- OUTSIDE RECORDS SUMMARY | 2024-02-18 13:09 | External Medical Summary | Summary of Care ---
Author Name Unknown Organization [facility] Address [address] [place] [address] Phone [phone] Care Team Providers Care Health Occupations Teacher Name Role Phone Howie Gilbert MD Primary Care Provide r Reason for Visit * Reason Onset Date Comments Prison Visit 01/13/2024 Encounter Details Date Type Department Care Team (Latest Contact Info) Description 01/13/2024 12:30 PM EDT Prison Visit [facility] [address] [place] [address] Nae Rodriges PA-C [address] [place] [address] Dermatitis associated with moisture*; 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HCC) Allergies No known active allergiesdocumented as of this encounter (statuses as of 01/13/2024) Medications Medication Sig Dispensed Refills Start Date [...] , group B, by GOLD 2017 classification ([facility]) Inhale via nebulizer. Use as directed. 1 Each 11/27/2018 Active Melatonin 10 MG Tablet Take 1 Tablet by mouth every night at bedtime. Active acetaminophen (TYLENOL) 325 MG Tablet Take 2 Tabs by mouth every 6 hours as needed for Pain. 30 Tab 04/27/2019 Active EPINEPHrine, Anaphylaxis, 1 MG/ML SOLN Inject [...] WRAP) 30 g 11 11/09/2022 Active Nystatin 400594 UNIT/GM External Powder (Nystop) Apply topically to [...] for Hemorrhoids. 28 g 2 03/13/2023 Active Calmoseptine 0.44-20.6 % External Ointment (Menthol-Zinc Oxide) Apply 113 g topically to affected area as needed for Hemorrhoids. Apply to buttocks Active Pregabalin 100 MG Oral Capsule (Lyrica)Indications: Primary parkinsonism (HCC) Take 1 capsule by mouth twice daily. May take 1 extra capsule after dialysis 3 days a week 72 Capsule 5 08/13/2023 Active Atorvastatin Calcium 80 MG Oral Tablet (Lipitor) Take 1 Tablet by mouth every night at bedtime. 30 Tablet 11/04/2023 Active Midodrine HCl 5 MG Oral Tablet (Proamatine) Take 1 Tablet by mouth in the morning and 1 Tablet at noon and 1 Tablet in the evening. 11/04/2023 Active Sertraline HCl 100 MG Oral Tablet (Zoloft) Take 1 Tablet by mouth in the morning. 11/04/2023 Active Carbidopa-Levodopa 25-100 MG Oral Tablet (Sinemet) Take 1 Tablet by mouth in the morning and 1 Tablet at noon and 1 Tablet before bedtime. 11/04/2023 Active Docusate Sodium 100 MG Oral Capsule (Colace)Indications: Chronic idiopathic constipation Take 1 Capsule by mouth in the morning. 11/04/2023 Active Levothyroxine Sodium 125 MCG Oral Tablet (Levoxyl) Take 1 Tablet by mouth daily first thing in the morning. 11/04/2023 Active Diclofenac Sodium 1 % External Gel (Voltaren) Apply 2 g topically to affected area in the morning and 2 g at noon and 2 g in the evening and 2 g before bedtime. Apply to left shoulder. 11/04/2023 Active Vitamin D 25 MCG (1000 UT) Oral Tablet Take 1 Tablet by mouth in the morning. 11/04/2023 Active Ondansetron HCl 4 MG Oral Tablet Take 1 Tablet by mouth every 6 hours as needed for Nausea. 11/04/2023 Active Acetaminophen 500 MG Oral Tablet (Tylenol) Take 1 Tablet by mouth in the morning and 1 Tablet at noon and 1 Tablet in the evening and 1 Tablet before bedtime. 11/11/2023 Active documented as of this encounter (statuses as of 01/13/2024) Active Problems Problem Noted Date Diagnosed Date [...] Assessment & Plan: TSH ordered Continue Synthroid Dementia associated with Parkinson's disease Last Assessment [...] as of this encounter (statuses as of 01/13/2024) Resolved Problems Problem Noted Date Diagnosed Date Resolved Date Problem with dialysis access 03/09/2023 03/18/2023 UTI (urinary tract infection) 03/09/2023 03/19/2023 Serrated polyp of colon 09/20/2022 02/1 11/2023 Overview: 7 mm descending colon BMI 38.0-38.9,adult 09/12/2022 03/19/19 24 Overview: 210 Major depressive disorder, r ecurrent episode, moderate 08/09/2022 08/09/2022 Last Assessment & Plan: Stable on sertraline Rectal bleeding 08/09/2022 01/29/2023 Last Assessment & Plan: Needs colonoscopy scheduled -[facility] Palliative care encounter 06/07/2021 Hypothyroidism 05/31/2021 [...] as of this encounter (statuses as of 01/13/2024) Immunizations Name Administration Dates Next Due COVID-19 [...] ages 0-17 years) Not on file 03/09/2023 Sex and Gender Information Value Date Recorded [...] Progress Notes * Nae Rodriges PA-C - 01/13/2024 2:52 PM EDT Name: Kami Hassan Date of :1945 TRANSITION EVENT: Type: Non-applicable Date: January 12 Code Status: Full Code This note pertains to care provided at [facility]. Please see facility medical record for original note. This note is not to be edited or addended in iMER. Editing or addending needs to occur in the facilities medical record. Subjective: Kami Hassan is a 78 year old female. Patient being seen for rash groin Chief Complaint Patient presents with Prison Visit HPI: I was asked to assess pt for rash noted in groin noted by staff. Pt is very sedentary, spends most of her time in bed. Has ESRD. No new soaps, detergents, etc. No chills or fever. Labs done at dialysis center Patient Active Problem List Diagnosis ADVANCE DIRECTIVE [...] History of 2019 novel coronavirus disease (COVID-19) Past Medical History: Diagnosis Date (HFpEF) heart failure with preserved ejection fraction (HCC) Acute on chronic diastolic (congestive) heart failure (HCC) 03/04/2020 [facility] Allergic rhinitis 02/15/2000 acute BMI 38.0-38.9,adult 08/28/2009 Chronic Sinusitis Unspecified Controlled substance agreement signed 11/25/2016 COVID-19 10/23/2021 Cystitis 05/23/2022 admitted [facility] home on cefuroxime Dyslipidemia, goal [...] rheumatoid factor (HCC) 07/18/2016 SDH (subdural hematoma) ([facility]) 04/20/2019 acute Serrated polyp of colon 09/20/2022 7 mm descending colon Sleep apnea Tinnitus 01/2005 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 Del Real CARPAL TUNNEL SURGERY Bilateral COLONOSCOPY, DIAGNOSTIC (RECTUM) 11/27/2015 normal, repeat 10 yrs/COLONOSCOPY FLEXIBLE PROXIMAL DIAGNOSTIC performed by Garrett Chang MD at ENDOSCOPY [facility] COLONOSCOPY, DIAGNOSTIC (RECTUM) 09/20/2022 serrated polyp, fair prep / [facility] EGD, FLEXIBLE, DIAGNOSTIC 04/19/2022 esophagitis, repeat 8-12 wks / [facility] EGD, FLEXIBLE, DIAGNOSTIC 06/26/2022 normal, retained food / [facility] EGD, FLEXIBLE, DIAGNOSTIC N/A 01/24/2023 normal/EGD/GA EXPLORATION OF MAXILLARY SINUS 03/17/1995 Sinus Surgery HYSTEROSCOPY,DIAGNOSTIC 2022 atrophic endometrium, endometrial polyp INJECTION LUMBAR/SACRAL 07/31/2015 INJECTION SPINE LUMBAR OR SACRAL performed by [place] Jenni Prado, at OR [facility] INJECTION LUMBAR/SACRAL 08/15/2015 INJECTION SPINE LUMBAR OR SACRAL performed by Quincy Prado, DO at OR [facility] INSER MARLI CAT,W/O PUMP;5YR/OLD N/A 11/04/2019 INSERT TUNNELED CENTRAL VENOUS CATHETER AGE 5 OR OLDER performed by Ortega Montez DO at OR [facility] MARLI CAT,W/O PUMP;5YR/OLD Right 03/09/2023 INSERT TUNNELED CENTRAL VENOUS CATHETER AGE 5 OR OLDER performed by Frde Brown MD at OR [facility] INTRO CATH DIALYSIS CIRCUIT W/TRANSLUM BALLOON ANGIOPLASTY Right 03/09/2023 AV FISTULOGRAM & PERIPHERAL ANGIOPLASTY performed by Fred Brown MD at OR [facility] LIGATE/CUT OVIDUCT(S) MISCELLANEOUS ORDER ([facility] ONLY) Bilateral Heel surgery MISCELLANEOUS ORDER ([facility] ONLY) Right 3rd toe nerve decompression, Dr. Del Real [place] COLSC FLX W/RMVL OF TUMOR POLYP LESION [...] date: 04/20/1938 Quit date: 04/20/1989 Years since quittin.7 Smokeless tobacco: Never Tobacco comments: smoked since 19 years of age. Smokes a pack every 3-4 days. 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 (Adult - for ages 18 years and over): Not on file Housing Stability: Low Risk (03/09/2023) Housing Stability Do you currently live in a [place] or have no steady place to sleep [...] list as this cannot be edited in Prefundia. Review of Systems: Constitutional ROS: No change [...] chest wall tenderness, lungs clear to auscultation Skin: erythematous wet maculopapular rash noted groin with satellite lesions ASSESSMENT: Dermatitis associated with moisture (Primary) 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HCC) PLAN: Magic mix to area BID as directed. 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
--- OUTSIDE RECORDS SUMMARY | 2024-02-18 13:10 | External Medical Summary | Summary of Care ---
Author Name Unknown Organization [facility] Address [address] [place] [address] Phone [phone] Care Team Providers Care Front Attendant Name Role Phone Howie Gilbert MD Primary Care Provide r Reason for Visit * Reason Onset Date Comments Longterm Visit 12/08/2023 Regulatory Encounter Details Date Type Department Care Team (Latest Contact Info) Description 12/08/2023 9:30 AM EDT Longterm Visit [facility] [address] [place] [address] Nae Rodriges PA-C [address] [place] [address] ESRD (end stage renal disease) on dialysis ([facility])*; 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[facility]); Chronic heart failure with preserved ejection fraction ([facility]); COPD, group B, by GOLD 2017 classification ([facility]); History of 2019 novel coronavirus disease (COVID-19); Orthostatic hypotension Allergies No known active allergiesdocumented as of this encounter (statuses as of 12/08/2023) Medications Medication Sig Dispensed Refills Start Date [...] as directed. 1 Each 1 11/27/2018 Active Melatonin 10 MG Tablet Take [...] WRAP) 30 g 11 11/09/2022 Active Nystatin 393035 UNIT/GM External Powder (Nystop) Apply topically to [...] as of this encounter (statuses as of 12/08/2023) Active Problems Problem Noted Date Diagnosed Date [...] as of this encounter (statuses as of 12/08/2023) Resolved Problems Problem Noted Date Diagnosed Date [...] as of this encounter (statuses as of 12/08/2023) Immunizations Name Administration Dates Next Due COVID-19 mRNA, LNP-s, No Pre serve, 2-Dose Series (Cahootify) 01/02/2021,06/21/2020,05/24/2020 COVID-19, mRNA, LNP-s, PF, B ooster, [...] lent, No Preserve, IM 11/25/2016,11/23/2015,12/26/2014 Seasonal Influenza, Trivalen t, (IIV3), with Preserv, (Fluzone) 11/22/2013,12/25/2012,12/24/2011,12/04,12/08/2008,12/25/2007,01/19/2007 ,01/21/2006 TDAP, Age 7 and older, [...] Adult Wellness Visit 08/16/2021 08/16/2020 COVID-19 Vaccine (2023- 5 season) 2023 01/17/2022, 07/23/2021, 01/02/2021, Additional [...] by GOLD 2017 classification ([facility]) History of 2019 novel coronavirus disease (COVID-19) Orthostatic hypotension documented in this encounter Advance Directives Documents on File Type Date Recorded Patient International Sales Manager Expl anation Power of Electrician Bus 12/16/2018 10:33 AM Nate r of Electrician Bus * Full Code (Latest Code Status on [...] Agents on File Name Relationship Healthcare Agent [facility] Wesley Hassan Spouse Health Care Agent Care Teams Front Attendant Relationship Specialty Start Date End Date Howie Gilbert MD [address] [place] [address] [place] [address] PCP - General Family Medicine 11/14/23 documented as of this encounter
--- OUTSIDE RECORDS SUMMARY | 2024-02-18 13:10 | External Medical Summary | Summary of Care ---
Author Name Unknown Organization [facility] Address [address] [place] [address] Phone [phone] Care Team Providers Care Welder Explosion Name Role Phone Howie Gilbert MD Primary Care Provide r Reason for Visit * Reason Onset Date Comments Intermediate Visit 12/04/2023 Encounter Details Date Type Department Care Team (Latest Contact Info) Description 12/04/2023 11:30 AM EDT Intermediate Visit [facility] [address] [place] [address] Nae Rodriges PA-C [address] [place] [address] COVID-19 virus infection*; 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HCC); ESRD (end stage renal disease) on dialysis ([facility]) Allergies No known active allergiesdocumented as of this encounter (statuses as of 12/04/2023) Medications Medication Sig Dispensed Refills Start Date [...] WRAP) 30 g 11 11/09/2022 Active Nystatin 962376 UNIT/GM External Powder (Nystop) Apply topically to [...] as of this encounter (statuses as of 12/04/2023) Active Problems Problem Noted Date Diagnosed Date [...] as of this encounter (statuses as of 12/04/2023) Resolved Problems Problem Noted Date Diagnosed Date [...] Last Assessment & Plan: Needs colonoscopy scheduled -[facility] Palliative care encounter 06/07/2021 Hypothyroidism 05/31/2021 [...] as of this encounter (statuses as of 12/04/2023) Immunizations Name Administration Dates Next Due COVID-19 [...] Progress Notes * Nae Rodriges PA-C - 12/04/2023 2:40 PM EDT Name: Kami Hassan Date of :1945 TRANSITION EVENT: Type: Non-applicable Date: December 03 Code Status: Full Code This note pertains to care provided at [facility]. Please see facility medical record for original note. This note is not to be edited or addended in [employer]. Editing or addending needs to occur in the facilities medical record. Subjective: Kami Hassan is a 78 year old female. Patient being seen for recheck visit Chief Complaint Patient presents with Intermediate Visit HPI: pt tested positive for Covid 19 infection on 11.29.23. very minimal symptoms of cough. No chills, fever, body aches, some lethargy and fatigue. Eating and drinking and sleeping well. Was not on Paxlovid due to ESRD. Continued with dialysis without complication. Vital signs stable. No diarrhea. Labs done at dialysis center. 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 Del Real CARPAL TUNNEL SURGERY Bilateral COLONOSCOPY, DIAGNOSTIC (RECTUM) 11/27/2015 normal, repeat 10 yrs/COLONOSCOPY FLEXIBLE PROXIMAL DIAGNOSTIC performed by Garrett Chang MD at ENDOSCOPY [facility] COLONOSCOPY, DIAGNOSTIC (RECTUM) 09/20/2022 serrated polyp, fair prep / [facility] EGD, FLEXIBLE, DIAGNOSTIC 04/19/2022 esophagitis, repeat 8-12 wks / [facility] EGD, FLEXIBLE, DIAGNOSTIC 06/26/2022 normal, retained food / [facility] EGD, FLEXIBLE, DIAGNOSTIC N/A 01/24/2023 normal/EGD/SD EXPLORATION OF MAXILLARY SINUS 03/17/1995 Sinus Surgery HYSTEROSCOPY,DIAGNOSTIC 2022 atrophic endometrium, endometrial polyp INJECTION LUMBAR/SACRAL 07/31/2015 INJECTION SPINE LUMBAR OR SACRAL performed by Quincy Prado, at OR [facility] INJECTION LUMBAR/SACRAL 08/15/2015 INJECTION SPINE LUMBAR OR SACRAL performed by Quincy Traceys, DO at OR [facility] MARLI CAT,W/O [...] 3rd toe nerve decompression, Dr. Del Real [place] COLSC FLX W/RMVL OF TUMOR POLYP LESION [...] date: 04/20/1938 Quit date: 04/20/1989 Years since quittin.6 Smokeless tobacco: Never Tobacco comments: smoked since 19 years of age. Smokes a pack every 3-4 days. 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 Review of Systems: obtained from pt and [...] No anxiety and No psychosis +dementia Sleep: RENÉ OBJECTIVE: PHYSICALEXAM: I reviewed the [...] normal, no rashes or significant lesions ASSESSMENT: COVID-19 virus infection (Primary) Recovering well Continue supportive Rx Out of isolation 12/09/23 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HCC) Stable mood mentation and PD Continue Zoloft as directed ESRD (end stage renal disease) on dialysis (HCC) Continue dialysis three days weekly PLAN: Reviewed medications and Continue present medication(s):as ordered. Usp Home Treatment Given: as above Electronically signed [...] Wellness Visit 08/16/2021 08/16/2020 COVID-19 Vaccine (6 - 4-2 5 season) 2023 01/17/2022, 07/23/2021, 01/02/2021, Additional [...] as of this encounter Visit Diagnoses Diagnosis COVID-19 virus infection- Primary 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HCC) ESRD (end stage renal disease) on dialysis (HCC) End stage renal disease documented in this encounter Advance Directives Documents on File Type Date Recorded Patient Preformer Impregnated Fabrics Expl anation Power of Superintendent Track 12/16/2018 10:33 AM Nate r of Superintendent Track * Full Code (Latest Code Status on [...] Hassan Spouse Health Care Agent Care Teams Welder Explosion Relationship Specialty Start Date End Date Howie Gilbert MD [address] [place] [phone] PCP - General Family Medicine 11/14/23 documented as of this encounter
--- OUTSIDE RECORDS SUMMARY | 2024-02-18 13:10 | External Medical Summary | Summary of Care ---
Author Name Unknown Organization [facility] Address [address] [place] [address] Phone [phone] Care Team Providers Care Advertising Sales Manager Name Role Phone Howie Gilbert MD Primary Care Provide r Reason for Visit * Reason Onset Date Comments Retirement Visit 12/16/2023 Encounter Details Date Type Department Care Team (Latest Contact Info) Description 12/16/2023 7:00 AM EDT Retirement Visit [facility] [address] [place] [address] Nae Rodriges PA-C [address] [place] [address] Excoriation of multiple sites of buttock, initial encounter*; Contusion of right breast, initial encounter; 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HCC) Allergies No known active allergiesdocumented as of this encounter (statuses as of 12/16/2023) Medications Medication Sig Dispensed Refills Start Date [...] WRAP) 30 g 11 11/09/2022 Active Nystatin 753198 UNIT/GM External Powder (Nystop) Apply topically to [...] as of this encounter (statuses as of 12/16/2023) Active Problems Problem Noted Date Diagnosed Date [...] o Beta Tanner Therapy: Other: none o HAREHS Inhibitor/ARB Therapy: Other: none o Diuretic therapy: [...] as of this encounter (statuses as of 12/16/2023) Resolved Problems Problem Noted Date Diagnosed Date [...] Last Assessment & Plan: Needs colonoscopy scheduled -[facility] Palliative care encounter 06/07/2021 Hypothyroidism 05/31/2021 [...] as of this encounter (statuses as of 12/16/2023) Immunizations Name Administration Dates Next Due COVID-19 [...] Adult Wellness Visit 08/16/2021 08/16/2020 COVID-19 Vaccine (2023-04 5 season) 2023 01/17/2022, 07/23/2021, 01/02/2021, Additional [...] as of this encounter Visit Diagnoses Diagnosis Excoriation of multiple sites of buttock, initial encounter- Primary Contusion of right breast, initial encounter 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HCC) documented in this encounter Advance Directives Documents on File Type Date Recorded Patient Billboard Installer Expl anation Power of Plumber Pipe Fitting 12/16/2018 10:33 AM Nate r of Plumber Pipe Fitting * Full Code (Latest Code Status on [...] Sonya Spouse Health Care Agent Care Teams Advertising Sales Manager Relationship Specialty Start Date End Date Howie Gilbert MD [address] [place] [id number] PCP - General Family Medicine 11/14/23 documented as of this encounter
--- OUTSIDE RECORDS SUMMARY | 2024-02-18 13:10 | External Medical Summary | Summary of Care ---
Author Name Unknown Organization [facility] Address [address] [place] [address] Phone [phone] Care Team Providers Care Individualized Education Plan Aide Name Role Phone Howie Gilbert MD Primary Care Provide r Reason for Visit * Reason Onset Date Comments Custodial Visit 12/09/2023 Encounter Details Date Type Department Care Team (Latest Contact Info) Description 12/02/2023 2:30 PM EDT Custodial Visit [facility] [address] [place] [address] Nae Rodriges PA-C [address] [place] [address] COVID-19 virus infection*; ESRD (end stage renal disease) on dialysis ([facility]); 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[facility]); Chronic heart failure with preserved ejection fraction ([facility]) Allergies No known active allergiesdocumented as of this encounter (statuses as of 12/09/2023) Medications Medication Sig Dispensed Refills Start Date [...] , group B, by GOLD 2017 classification ([facility]) Inhale via nebulizer. Use [...] WRAP) 30 g 11 11/09/2022 Active Nystatin 210942 UNIT/GM External Powder (Nystop) Apply topically to [...] as of this encounter (statuses as of 12/09/2023) Active Problems Problem Noted Date Diagnosed Date [...] as of this encounter (statuses as of 12/09/2023) Resolved Problems Problem Noted Date Diagnosed Date [...] Last Assessment & Plan: Needs colonoscopy scheduled -[facility] Palliative care encounter 06/07/2021 Hypothyroidism 05/31/2021 05/27/2022 [...] as of this encounter (statuses as of 12/09/2023) Immunizations Name Administration Dates Next Due COVID-19 [...] Progress Notes * Nae Rodriges PA-C - 12/09/2023 2:17 PM EDT Name: Kami Hassan Date of :1945 TRANSITION EVENT: Type: Non-applicable Date: December 01 Code Status: Full Code This note pertains to care provided at [facility]. Please see facility medical record for original note. This note is not to be edited or addended in [employer]. Editing or addending needs to occur in the facilities medical record. Subjective: Kami Hassan is a 78 year old female. Patient being seen for acute issue Chief Complaint Patient presents with Custodial Visit HPI: I was asked to assess pt for testing positve for Covid 19 infection. Pt having some mild fatigue and staff note an occasional cough. No dyspnea, chills, body aches, nausea, vomiting, loss of taste or smell or diarrhea. Pt has ESRD on dialysis. She has dementia and is poor historian. Labs done at dialysis center. Patient Active [...] chronic diastolic (congestive) heart failure (HCC) 03/04/2020 [facility] Allergic rhinitis 02/15/2000 acute BMI 38.0-38.9,adult 08/28/2009 Chronic Sinusitis Unspecified Controlled substance agreement signed 11/25/2016 COVID-19 10/23/2021 Cystitis 05/23/2022 admitted [facility] home on cefuroxime Dyslipidemia, [...] elevated myocardial infarction) (HCC) 09/03/2018 Parkinson disease ([facility]) Rectal bleeding Restless leg syndrome 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 factor ([facility]) 07/18/2016 SDH (subdural hematoma) ([facility]) 04/20/2019 acute Serrated polyp of colon 09/20/2022 7 mm descending colon Sleep apnea Tinnitus 01/2005 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 Del Real CARPAL TUNNEL SURGERY Bilateral COLONOSCOPY, DIAGNOSTIC (RECTUM) 11/27/2015 normal, repeat 10 yrs/COLONOSCOPY FLEXIBLE PROXIMAL DIAGNOSTIC performed by Garrett Chang MD at ENDOSCOPY [facility] COLONOSCOPY, DIAGNOSTIC (RECTUM) 09/20/2022 serrated polyp, fair prep / [facility] EGD, FLEXIBLE, DIAGNOSTIC 04/19/2022 esophagitis, repeat 8-12 wks / [facility] EGD, FLEXIBLE, DIAGNOSTIC 06/26/2022 normal, retained food / [facility] EGD, FLEXIBLE, DIAGNOSTIC N/A 01/24/2023 normal/EGD/TN EXPLORATION OF MAXILLARY SINUS 03/17/1995 Sinus Surgery HYSTEROSCOPY,DIAGNOSTIC 2022 atrophic endometrium, endometrial polyp INJECTION LUMBAR/SACRAL 07/31/2015 INJECTION SPINE LUMBAR OR SACRAL performed by Quincy Prado, at OR [facility] INJECTION LUMBAR/SACRAL 08/15/2015 INJECTION SPINE LUMBAR OR SACRAL performed by Quincy Prado, at OR [facility] INSER MARLI CAT,W/O PUMP;5YR/OLD N/A 11/04/2019 INSERT TUNNELED CENTRAL VENOUS CATHETER AGE 6 OR OLDER performed by Ortega Montez DO at OR [facility] INSER MARLI CAT,W/O PUMP;5YR/OLD Right 03/09/2023 INSERT TUNNELED CENTRAL VENOUS CATHETER AGE 5 OR OLDER performed by Fred Brown MD at [place] [facility] INTRO CATH DIALYSIS CIRCUIT W/TRANSLUM BALLOON ANGIOPLASTY Right 03/09/2023 AV FISTULOGRAM & PERIPHERAL ANGIOPLASTY performed by Fred Brown MD at [place] [facility] LIGATE/CUT OVIDUCT(S) MISCELLANEOUS ORDER ([facility] ONLY) Bilateral Heel surgery MISCELLANEOUS ORDER ([facility] ONLY) Right 3rd toe nerve decompression, Dr. Del Real AR COLSC FLX W/RMVL OF TUMOR POLYP LESION [...] Social History Narrative Merged History Encounter Retired [employer] Social Determinants of Health Financial Resource Strain: [...] years): Not on file Social Connections: Unknown (12/09/2023) Social Connections How often do you feel [...] edited in EPIC. Review of Systems: obtained mostly from staff Constitutional ROS: No change in weight, [...] and no masses or organomegaly Extremities: no joint deformities, effusion, or inflammation, no edema, no clubbing, no cyanosis Neuro Exam: alert & oriented x 1 with fluent speech, no focal motor/sensory deficits Skin: skin color, texture, turgor are normal, no rashes or significant lesions ASSESSMENT: COVID-19 virus infection (Primary) Discussion held with , POA Discussed signs, symptoms and treatment of Covid Because pt has ESRD, will not begin Paxlovid Pt having minimal symptoms Will begin Duonebs prn and Siltussin prn Will follow ESRD (end stage renal disease) on dialysis (HCC) Continue dialysis as directed 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HCC) Stable mood and mentatiion Continue to monitor Chronic heart failure with preserved ejection fraction (HCC) Stable no active CHf Continue to monitor PLAN: Reviewed medications Continue present medications and dosages. Jail Home Treatment Given: as above Electronically signed [...] Visit Diagnoses Diagnosis COVID-19 virus infection- Primary ESRD (end stage renal disease) on dialysis (HCC) End stage renal disease 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HCC) Chronic heart failure with preserved ejection fraction (HCC) documented in this encounter Advance Directives Documents on File Type Date Recorded Patient Digitizer Operator Expl anation Power of Head Of Cytogenetics 12/16/2018 10:33 AM Nate r of Head Of Cytogenetics * Full Code (Latest Code Status on File) Date Activated Date Inactivated Comments 03/09/2023 4:12 AM 03/18/2023 6:31 PM This order r eflects the patients wishes and were consensually agreed upon. Question Answer Comments Discussion of Advance Directives occurred with: Patient * Limited Code Date Activated Date Inactivated Comments 04/25/2019 7:49 AM 04/30/2019 8:58 PM Spoke to kathryn hong's spouse regarding code status. He would like [...] Hassan Spouse Health Care Agent Care Teams Individualized Education Plan Aide Relationship Specialty Start Date End Date Howie Gilbert MD [address] [place] [id number] PCP - General Family Medicine 11/14/23 documented as of this encounter
--- OUTSIDE RECORDS SUMMARY | 2024-02-18 13:10 | External Medical Summary | Summary of Care ---
Author Name Unknown Organization [facility] Address [address] [facility] [address] Phone [phone] Care Team Providers Care Senior Erp Consultant Name Role Phone Howie Gilbert MD Primary Care Provide r Encounter Details Date Type Department Care Team (Late st Contact Info) Description 01/07/2024 Population Health External Data Unspecified Department Allergies No known active allergiesdocumented as of this encounter (statuses as of 01/07/2024) Medications Medication Sig Dispensed Refills Start Date [...] WRAP) 30 g 11 11/09/2022 Active Nystatin [id number] UNIT/GM External Powder (Nystop) Apply topically to [...] as of this encounter (statuses as of 01/07/2024) Active Problems Problem Noted Date Diagnosed Date [...] as of this encounter (statuses as of 01/07/2024) Resolved Problems Problem Noted Date Diagnosed Date [...] Last Assessment & Plan: Needs colonoscopy scheduled -[facility] Palliative care encounter 06/07/2021 Hypothyroidism 05/31/2021 [...] as of this encounter (statuses as of 01/07/2024) Immunizations Name Administration Dates Next Due COVID-19 [...] Visit 08/16/2021 08/16/2020 COVID-19 Vaccine (6 - 2023-2 5 season) 2023 01/17/2022, 07/23/2021, 01/02/2021, [...] on File Type Date Recorded Patient Manager Storage Expl anation Power of Production Packager 12/16/2018 10:33 AM Nate r of Production Packager * Full Code (Latest Code Status on [...] Spouse Health Care Agent Care Teams Senior Erp Consultant Relationship Specialty Start Date End Date Howie Gilbert MD [address] [place] [address] [place] [id number] PCP - General Family Medicine 11/14/23 documented as of this encounter
--- OUTSIDE RECORDS SUMMARY | 2024-02-18 13:11 | External Medical Summary | Summary of Care ---
Author Name Unknown Organization [facility] Address [address] [facility] [address] Phone [phone] Care Team Providers Care Manager Business Banking Name Role Phone Howie Gilbert MD Primary Care Provide r Reason for Visit * Reason Onset Date Comments Health Maintenance 11/27/2023 Encounter Details Date Type Department Care Team (Late st Contact Info) Description 11/27/2023 Telephone Family Medicine [address] [phone] Howie Gilbert MD [address] [place], [place] [address] [address] Health Maintenance Allergies No known active allergiesdocumented as of this encounter (statuses as of 11/27/2023) Medications Medication Sig Dispensed Refills Start Date [...] WRAP) 30 g 11 11/09/2022 Active Nystatin 575534 UNIT/GM External Powder (Nystop) Apply topically to [...] as of this encounter (statuses as of 11/27/2023) Active Problems Problem Noted Date Diagnosed Date Sinus bradycardia 11/04/2023 Orthostatic hypotension 11/04/2023 History [...] as of this encounter (statuses as of 11/27/2023) Resolved Problems Problem Noted Date Diagnosed Date [...] Last Assessment & Plan: Needs colonoscopy scheduled -[facility] Palliative care encounter 06/07/2021 Hypothyroidism 05/31/2021 05/27/2022 [...] as of this encounter (statuses as of 11/27/2023) Immunizations Name Administration Dates Next Due COVID-19 [...] 18 years and over) Not on file 3 Are you (or your family) vicky eless [...] encounter Miscellaneous Notes * Telephone Encounter - Angela Hagen LPN - 11/27/2023 9:05 AM EDT Care Gaps Comprehensive Care Outreach Last Office/Telemedicine Visit: 01/31/2023 (in office), Visit date not found (telemedicine) Next Office Visit: Visit date not found Hemoglobin AIC Results: Lab Results Component Value Date/Time HEMOGLOBIN A1C - [facility] 5.4 09/22/2023 05:43 AM HEMOGLOBIN A1C - [facility] 4.9 03/09/2023 06:04 AM HEMOGLOBIN A1C - [facility] 5.3 05/31/2021 03:04 PM HEMOGLOBIN A1C - [facility] 5.1 03/23/2019 04:45 PM HEMOGLOBIN A1C - [facility] 4.9 05/01/2018 02:07 PM HEMOGLOBIN A1C - [facility] 5.3 10/13/2017 01:44 PM BP Readings from Last 1 Encounters: 06/24/23 96/51 Reviewed Health Maintenance below: Health Maintenance Topic Date Due Zoster Vaccines (2 of 3) 12/18/2011 Depression Screening 01/22/2020 Adult Wellness Visit 08/16/2021 Influenza Vaccine (FLU shot) (1) 11/16/2023 COVID-19 Vaccine ( season) 2023 snf Care Gap Outreach Action Taken: Outreach not indicated documented in this encounter Plan of Treatment [...] Documents on File Type Date Recorded Patient Orientor Expl anation Power of Tank Truck Milk Receiver 12/16/2018 10:33 AM Nate r of Tank Truck Milk Receiver * Full Code (Latest Code Status on [...] Eggler Spouse Health Care Agent Care Teams Manager Business Banking Relationship Specialty Start Date End Date Howie Gilbert MD [address] [place] [address] [place] [id number] PCP - General Family Medicine 11/14/23 documented as of this encounter
--- OUTSIDE RECORDS SUMMARY | 2024-02-18 13:11 | External Medical Summary | Continuity Of Care Document ---
Author Name Unknown Address [address] [place] [address] Organization [facility] ( ) Care Team Providers Care Emergency Medicine Physician Assistant Name Role Phone Howie Gilbert Primary Care Provider [phone] Problems Code Description Start Date End Date [...] weight Temperature SpO2 Blood Sugar Pulse Respirations 818 74507 7 818 43841 6 62.00 mm[Hg] - Sitting 117.00 mm[Hg] - Sitting 97.90 Ear 67.00/ min 20.00/min 818 81793 0 51.00 mm[Hg] - Sitting 114.00 mm[Hg] - Sitting 98.20 Ear 92.00 % 66.00/ min 18.00/min 819 35596 0 60.00 mm[Hg] - Sitting 118.00 mm[Hg] - Sitting 97.20 Ear 93.00 % 62.00/ min 18.00/min 90145 820 53160 5 76.00 mm[Hg] - Sitting 117.00 mm[Hg] - Sitting 98.20 Ear 72.00/ min 18.00/min 48909 820 94382 0 68.00 mm[Hg] - Sitting 117.00 mm[Hg] - Sitting 98.00 Oral 93.00 % 55.00/ min 20.00/min 90153 823 67785 0 57.00 mm[Hg] - Sitting 128.00 mm[Hg] - Sitting 97.70 Ear 90.00 % 50.00/ min 18.00/min 65946 831 83542 7 49.00 mm[Hg] - Sitting 115.00 mm[Hg] - Sitting 97.70 Oral 90.00 % 54.00/ min 18.00/min 59926 903 96135 6 55.00 mm[Hg] - Sitting 120.00 mm[Hg] - Sitting 219.50 NI 98.00 X-Other 60.00/ min 86578 914 17256 6 Immunizations Vaccine Date Status COVID-19 05/24/2020 Completed COVID-19 06/21/2020 Completed COVID-19 01/02/2021 Completed COVID-19 07/23/2021 Completed COVID-19 07/24/2021 Completed COVID-19 01/17/2022 Completed Influenza 01/01/2023 Completed (PCV13)Pneumococcal 10/28/2014 Completed (PPSV23)Pneumococcal 03/22/2016 Completed Shingles 10/23/2011 Completed TDaP 06/27/2009 Completed
--- OUTSIDE RECORDS SUMMARY | 2024-02-18 13:11 | External Medical Summary | Continuity Of Care Document ---
Author Name Unknown Address [address] [place] [address] Organization [facility] ( ) Care Team Providers Care Tap Grinder Name Role Phone Howie Gilbert Primary Care Provider [phone] Problems Code Description Start Date End Date [...] Temperature SpO2 Blood Sugar Pulse Respirations 818 56103 7 818 53212 6 62.00 mm[Hg] - Sitting 117.00 mm[Hg] - Sitting 97.90 Ear 67.00/ min 20.00/min 818 94990 0 51.00 mm[Hg] - Sitting 114.00 mm[Hg] - Sitting 98.20 Ear 92.00 % 66.00/ min 18.00/min 819 55735 0 60.00 mm[Hg] - Sitting 118.00 mm[Hg] - Sitting 97.20 Ear 93.00 % 62.00/ min 18.00/min 31786 820 11705 5 76.00 mm[Hg] - Sitting 117.00 mm[Hg] - Sitting 98.20 Ear 72.00/ min 18.00/min 71918 820 69080 0 68.00 mm[Hg] - Sitting 117.00 mm[Hg] - Sitting 98.00 Oral 93.00 % 55.00/ min 20.00/min 48343 823 50348 0 57.00 mm[Hg] - Sitting 128.00 mm[Hg] - Sitting 97.70 Ear 90.00 % 50.00/ min 18.00/min 05821 831 02873 7 49.00 mm[Hg] - Sitting 115.00 mm[Hg] - Sitting 97.70 Oral 90.00 % 54.00/ min 18.00/min 40360 903 57454 6 55.00 mm[Hg] - Sitting 120.00 mm[Hg] - Sitting 219.50 NI 98.00 X-Other 60.00/ min 48054 912 31180 6 Immunizations Vaccine Date Status COVID-19 05/24/2020 Completed COVID-19 06/21/2020 Completed COVID-19 01/02/2021 Completed COVID-19 07/23/2021 Completed COVID-19 07/24/2021 Completed COVID-19 01/17/2022 Completed Influenza 01/01/2023 Completed (PCV13)Pneumococcal 10/28/2014 Completed (PPSV23)Pneumococcal 03/22/2016 Completed Shingles 10/23/2011 Completed TDaP 06/27/2009 Completed
--- OUTSIDE RECORDS SUMMARY | 2024-02-18 13:11 | External Medical Summary | Continuity Of Care Document ---
Author Name Unknown Address [address] [place] [address] Organization [facility] ( ) Care Team Providers Care Servicer Name Role Phone Howie Gilbert Primary Care Provider [phone] Problems Code Description Start Date End Date [...] Muscle weakness (generalized) 03/18/2023 Active U07.1 COVID-19 10/29/2023 Active J96.02 Acute respiratory failure with hypercapnia 05/15 Active M62.81 Muscle weakness (generalized) 05/28/2023 Active R53.1 Weakness 05/28/2023 Active I95.9 Hypotension, unspecified 11/03/2023 Active Z74.1 Need for assistance with personal care 11/03/19 Active VITAL SIGNS Date Time Diastolic blood pressure Systolic blood pressure Body height Body weight Temperature SpO2 Blood Sugar Pulse Respirations 818 33062 7 818 97354 6 62.00 mm[Hg] - Sitting 117.00 mm[Hg] - Sitting 97.90 Ear 67.00/ min 20.00/min 818 29460 0 51.00 mm[Hg] - Sitting 114.00 mm[Hg] - Sitting 98.20 Ear 92.00 % 66.00/ min 18.00/min 819 55593 0 60.00 mm[Hg] - Sitting 118.00 mm[Hg] - Sitting 97.20 Ear 93.00 % 62.00/ min 18.00/min 42106 820 72302 5 76.00 mm[Hg] - Sitting 117.00 mm[Hg] - Sitting 98.20 Ear 72.00/ min 18.00/min 46650 820 81831 0 68.00 mm[Hg] - Sitting 117.00 mm[Hg] - Sitting 98.00 Oral 93.00 % 55.00/ min 20.00/min 15183 823 23325 0 57.00 mm[Hg] - Sitting 128.00 mm[Hg] - Sitting 97.70 Ear 90.00 % 50.00/ min 18.00/min 22442 831 41072 7 49.00 mm[Hg] - Sitting 115.00 mm[Hg] - Sitting 97.70 Oral 90.00 % 54.00/ min 18.00/min 82740 903 27697 6 55.00 mm[Hg] - Sitting 120.00 mm[Hg] - Sitting 219.50 NI 98.00 X-Other 60.00/ min 84453 912 45927 6 Immunizations Vaccine Date Status COVID-19 05/24/2020 Completed COVID-19 06/21/2020 Completed COVID-19 01/02/2021 Completed COVID-19 07/23/2021 Completed COVID-19 07/24/2021 Completed COVID-19 01/17/2022 Completed Influenza 01/01/2023 Completed (PCV13)Pneumococcal 10/28/2014 Completed (PPSV23)Pneumococcal 03/22/2016 Completed Shingles 10/23/2011 Completed TDaP 06/27/2009 Completed
[2024-02-18] MEDS ORDERED: MIDODRINE HCL 2.5 MG TAB PO PRN (13:36)
[2024-02-18] MEDS: MIDODRINE HCL 2.5 MG TAB PO SCH (14:00)
[2024-02-18] MEDS: HEPARIN SOD (PORCINE) 1000 UNIT/ML IV SCH (16:48)
[2024-02-18] MEDS: HEPARIN SOD (PORCINE) 1000 UNIT/ML IV ONE (16:48)
[2024-02-19] MEDS: MELATONIN 3 MG TAB PO PRN (00:59)
--- NOTE | 2024-02-19 08:06 | XRay Report ---
EXAM: XR chest 1V portable CLINICAL HISTORY: POST OP COUGHING AND WHEEZING KAA/TGB TECHNIQUE: An X-ray image of the chest is obtained in 1 AP projection. COMPARISON: 11/15/2021 CR FINDINGS: Pulmonary Parenchyma: Bilateral patchy alveolar opacities together with prominent bronchovascular markings and bilateral prominent navi, suspicious for pulmonary edema, advised clinical correlation Left costophrenic angle not molly visualized, either blunted or obscured by cardiac shadow No evidence of right pleural effusion or pleural thickening. Heart and Mediastinum: Marked Cardioemagy with dilated unfolded aorta and mediastinal widening, advised clinical correlation and work-up if clinically warranted Bony Thorax: Thoracic spondylosis in the form of sclerosed end plates and osteophytes Soft Tissues: Soft tissues overlying the chest wall are unremarkable. IMPRESSION: 1. Bilateral patchy alveolar opacities together with prominent broncho vascular markings and bilateral prominent navi, suspicious for pulmonary edema, advised clinical correlation. New finding. 2. Left costophrenic angle not clearly visualized, either blunted or obscured by cardiac shadow. 3. Marked Cardioemagy with dilated unfolded aorta and mediastinal widening, advised clinical correlation and work-up if clinically warranted. 4. Progression in the extent of Cardioemagy with dilated unfolded aorta and mediastinal widening, advised clinical correlation and work-up if clinically warranted. Electronically signed by Cesar Mancuso 02-19-2024 08:05 AM
[2024-02-19 08:49] LABS: Potassium 3.7 mmol/L (3.5-5.1)
[2024-02-19 08:54] LABS: BUN Creatinine Ratio 5.5 (10-20); Creatinine Clr Calc Pharmacy 14.2 ml/min
--- NOTE | 2024-02-19 12:07 | Discharge Summary ---
Discharge Summary Date of Service February 19, 2024 Principal Dx & Hospital Course #1 = Principal Diagnosis (1) Acute metabolic encephalopathy: (2) Acute on chronic hypoxic respiratory failure: (3) Noncompliance with renal dialysis: (4) Diet-controlled type 2 diabetes mellitus: (5) RENÉ (obstructive sleep apnea): (6) Morbid obesity: Notes For Next Care Provider Medication Changes From Visit Current Inpatient Medications Heparin Sodium (Porcine) (Heparin Sod 5,000 Unit/0.5 Ml Vial) 5,000 units SQ Q8H [facility] Stop: 03/18/24 14:59 Last Admin: 02/19/24 10:14 Dose: Not Given Insulin Aspart (Insulin Aspart Per Unit Charge) 0 units SC ACHS [facility] Stop: 03/19/24 00:00 Last Admin: 02/19/24 10:12 Dose: Not Given Melatonin (Melatonin 3 Mg Tab) 3 mg PO HS PRN PRN Reason: Sleep Stop: 03/20/24 00:41 Last Admin: 02/19/24 00:59 Dose: 3 mg Midodrine (Midodrine Hcl 2.5 Mg Tab) 5 mg PO UD [facility] Stop: 03/19/24 13:14 Last Admin: 02/18/24 14:00 Dose: 5 mg Midodrine (Midodrine Hcl 2.5 Mg Tab) 5 mg PO UD PRN PRN Reason: SBP <90 AFTER DIALYSIS Stop: 03/19/24 13:35 Ondansetron HCl (Ondansetron Inj 2 Mg/Ml 2 Ml Vial) 4 mg IV Q6H PRN PRN Reason: Nausea Stop: 03/18/24 14:58 Admission HPI Per Admitting Provider Patient is a 78-year-old female with history of end-stage renal disease on hemodialysis, history of COPD with chronic hypoxemic respiratory failure on 3 L of oxygen at baseline per records, hypothyroidism, Parkinson disease, diet- controlled diabetes mellitus type 2, RENÉ, chronic anemia of CKD who apparently based on the information I received is coming from [facility], patient apparently has missed some hemodialysis recently developed volume overload, patient had some altered mental status and confusion on board, patient underwent hemodialysis per nephrology and was given and assisted with midodrine for her low blood pressure during hemodialysis. Patient volume status stabilized, per recommendation by nephrology, there is no further hemodialysis today and since tomorrow patient can resume her routine hemodialysis. I spoke with [facility] and I realized that some element of patient's cognitive impairment is her baseline, she is continually objecting blood draw, oral nutrition to the point that it makes care very difficult. At this point I do not have any further input and recommendation, patient can return to her prior setting at SNF. Discharge Exam VITALS: Reviewed. P WEIGHT/BMI reviewed. GEN: Healthy appearing, well-developed, NAD. Somewhat confused. NECK: Supple, with no masses. CV: RRR, no m/r/g. LUNGS: CTAB, no w/r/c. ABD: Obese, appears slightly distended but otherwise nontender SKIN: Warm, well perfused. No skin rashes or abnormal lesions. Updated Medication List Medication Instructions Recorded Confirmed Type aspirin 81 mg tablet,delayed 162 mg PO QAM 11/15/21 02/17/24 History release atorvastatin 80 mg tablet 80 mg PO QPM 11/15/21 02/17/24 History carbidopa 25 mg-levodopa 100 mg 1 tab PO TID 11/15/21 02/17/24 History tablet docusate sodium 100 mg capsule 100 mg PO DAILY 11/15/21 02/17/24 History (Colace) levothyroxine 125 mcg tablet 125 mcg PO QAM 11/15/21 02/17/24 History pregabalin 100 mg capsule 100 mg PO BID 11/15/21 02/17/24 History sertraline 100 mg tablet 100 mg PO DAILY 11/15/21 02/17/24 History pantoprazole 20 mg tablet,delayed 20 mg PO BID 05/23/22 02/17/24 History release epinephrine 0.3 mg/0.3 mL 0.3 mg IM DIRECTED PRN Allergic 09/05/22 02/17/24 History injection, auto-injector (EpiPen) Reaction melatonin 10 mg tablet 10 mg PO HS 09/05/22 02/17/24 History ferric citrate 210 mg iron tablet 210 - 420 mg PO UD 01/21/23 02/17/24 History (Auryxia) fluticasone furoate 200 1 inh inhalation BID 01/21/23 02/17/24 History mcg-vilanterol 25 mcg/dose inhalation powder (Breo Ellipta) cholecalciferol (vitamin D3) 25 25 mcg PO DAILY 10/27/23 02/17/24 History mcg (1,000 unit) capsule midodrine 5 mg tablet 5 mg PO UD 10/27/23 02/17/24 History vitamin B complex-vitamin C-folic 1 tab PO DAILY 10/27/23 02/17/24 History acid 0.8 mg tablet (Nanci-Samuel) Hospital Stay Data Consultations 02/17/24 12:29 ED Decision to Admit Stat 02/17/24 13:38 Consult Nephrology Routine Procedures Performed Hemodialysis Diagnostic Imagining Performed 02/17/24 15:23 CT head/brain wo con Stat Pending Results Patient Have Any Pending Studies at Discharge: No Discharge Instructions Given to Patient (Per Discharging Provider) patient is very difficult to be managed at the hospital because of refusal to agree for workup, oral intake, as I discussed with staff at her [facility], I realized that these were not new and has roots in her baseline cognitive deficits. At this point there is no further input that I could provide, patient will be coordinated to be transferred back. Total Time Total Time Spent Total Time Spent (In Minutes): 45 minutes
[2024-02-19 12:23] LABS: Hemoglobin 12.8 g/dl (12.0-16.0); Mean Corpuscular Hemoglobin 34.1 pg (25.0-34.0); Mean Corpuscular Hgb Conc 33.7 g/dL (32.0-36.0); Mean Corpuscular Volume 101.3 fL (80.0-100.0); Mean Platelet Volume 11.3 fL (9.4-12.4); Platelet Count 194 K/uL (130-400); RDW Coefficient of Variation 14.5 % (11.5-14.5); RDW Standard Deviation 53.9 fL (36.4-46.3); Red Blood Count 3.75 M/uL (4.20-5.40); White Blood Count 9.24 K/ul (4.8-10.8)
[2024-02-20] MEDS ORDERED: HEPARIN SOD (PORCINE) 1000 UNIT/ML IV ONE (06:28)
[2024-02-20] MEDS ORDERED: HEPARIN SOD (PORCINE) 1000 UNIT/ML IV SCH (06:30)
[2024-02-20 07:09] VITALS: RESP 17; O2SAT 96
--- NOTE | 2024-02-20 10:19 | Communication Note ---
Date of Service: February 20, 2024 Patient was seen and briefly examined today, she was unable [facility] because of some [facility] issues, she will complete her to hemodialysis today as today is her dialysis day and after that will be transferred per my conversation with case management.
--- NOTE | 2024-02-20 10:27 | Nephrology Progress Note ---
Date of Service February 20, 2024 Assessment & Plan (1) Hemodialysis status: Plan: made up missing treatment time since admission >> left OP dialysis day of admission 0.5 kg over normal post tx target weight and about 1 kg over her usual post weight. not excessively overloaded based on her weights, though imaging noted w/ mild OL. K controlled at 3.7 >>for routine HD today; will hold midodrine if not already given and put hold parameters on it; mini heparin w/ HD; no epo needed w/ hgb 10.3 (2) Acute metabolic encephalopathy: Plan: resolved; day of admission was markedly obtunded; already had confusion and lethargy day prior to admission -new interval finding on head CT >> possibly age indeterminate infarct; consider MRI brain (3) Hypotension: Plan: improved/resolved. actually hypertensive today >midodrine w/ HD ordered >HD as above (4) Acute respiratory failure with hypoxia: Plan: h/o severe sleep apnea and poor adherence w/ CPAP. historically not needing 02NC but used for comfort at HD; that said her 02 needs haven't been evaluated recently by specialist she does not normally require 02 >>suggest nonemergent post hospital f/u w/ pulmonary to reeval chronic 02 needs if any and overall pulm status (last seen spring 2020 w/ f/u planned but never scheduled) >ensure her COPD therapy/nebs are ongoing/aggressive Admission and Anticipated Discharge Date Admission Date: February 17, 2024 Subjective seen on early AM rounds. no interval events clinically. d/c deferred yesterday d/t transport issues. pt denies sob, n/v, uncontrolled pain. on 4L NC , lying flat in bed Review of Systems 2 Review of Systems: All systems reviewed & are unremarkable except as noted in Subjective Physical Exam 2 Constitutional: well developed, well nourished and + altered mental status; no acute distress ENMT: Mouth: + dry oral mucous membranes Respiratory: normal respiratory effort; no respiratory distress, no labored breathing, no cough and not tachypneic Auscultation: + diminished lung sounds Cardiovascular: Rate/Rhythm: regular rate (HS distant) and regular rhythm E xtremities: no edema Gastrointestinal (Abdomen): Inspection/Auscultation: normal bowel sounds P ercussion/Palpation: abdomen soft; abdomen nontender Skin: no rashes, warm and dry Psychiatric: Orientation: alert, oriented to person and oriented to place Results & Data Vital Signs (Past 12 Hours) Vital Signs Temp Pulse Resp BP Pulse Ox O2 Del Method O2 Flow Rate 02/20/24 07:08 36.6 C 68 17 200/82 H 96 Nasal Cannula 4 Laboratory Results 02/19/24 11:55 02/19/24 08:01 (3) Hypotension Hypotension type: unspecified hypotension type Qualified Code(s): I95.9 - Hypotension, unspecified
[2024-02-20 11:19] VITALS: TEMP 98.1
[2024-02-20 13:33] VITALS: BP 86/48; PULSE 65
--- OUTSIDE RECORDS SUMMARY | 2024-02-21 07:45 | External Medical Summary | Summary of Care ---
Author Name Unknown Organization [facility] Address [address] [place] [address] Phone [phone] Care Team Providers Care Vest Backer Name Role Phone Howie Gilbert MD Primary Care Provide r Encounter Details Date Type Department Care Team (Late st Contact Info) Description 02/18/2024 Orders Only [facility] [address] [place] [address] Nae Rodriges PA-C [address] [place] [address] Allergies No known active allergiesdocumented as of this encounter (statuses as of 02/18/2024) Medications ONETOUCH DELICA LANCETS 33G MISC Up to 4 times daily 100 Each 6 11/25/19 15 Active Glucose Blood (ONETOUCH ULTRA BLUE) STRP Use as directed 4 times a day as needed (Diabetes). Use up to four times a day as directed 100 Strip 11 02/04/20 18 Active Nebulizers (NEBULIZER COMPRESSOR) MISCIndications:CO PD, group B, by GOLD 2017 classification ([facility]) Inhale via nebulizer. Use as [...] )Indications:COPD, group B, by GOLD 2017 classification ([facility] [...] 10:42 AM EST 11/10/19 23 Active Nystatin 028713 UNIT/GM External Powder (Nystop) Apply topically to [...] Tablet in the evening. 11/04/19 24 Active Carbidopa-Levodopa 25-100 MG Oral Tablet (Sinemet) Take 1 Tablet by mouth in the morning and 1 Tablet at noon and 1 Tablet before bedtime. 11/04/19 24 Active Docusate Sodium 100 MG Oral Capsule [...] as of this encounter (statuses as of 02/18/2024) Active Problems Problem Noted Date Diagnosed Date [...] as of this encounter (statuses as of 02/18/2024) Resolved Problems Problem Noted Date Diagnosed Date [...] (08/09/2022 11:02 AM EDT): Needs colonoscopy scheduled -[facility] Palliative care encounter 06/07/2021 Hypothyroidism [...] as of this encounter (statuses as of 02/18/2024) Immunizations Name Administration Dates Next Due COVID-19 mRNA, LNP-s, No Pre serve, 2-Dose Series ([employer]) 01/02/2021,06/21/2020,05/24/2020 COVID-19, mRNA, LNP-s, PF, B ooster, [...] Procedure Name Priority Date/Time Associated Diagnosis Comments COMPREHENSIVE METABOLIC PANEL Routine 02/16/2024 CBC Routine 02/16/2024 documented in this encounter Results * (ABNORMAL) COMPREHENSIVE METABOLIC PANEL (02/16/2024) CREATININE 5.41(A) 0.55 - 1.02 MG/DL OUTSIDE LAB (SEE SCANNED REPORT) EGFR 8(A) >=60 ML/MIN OUTSIDE LAB (SEE SCANNED REPORT) POTASSIUM 3.5 3.5 - 5.1 MMOL/L OUTSIDE LAB (SEE SCANNED REPORT) GLUCOSE 138(A) 70 - 110 MG/DL OUTSIDE LAB (SEE SCANNED REPORT) ALT-OUTSIDE LAB 11(A) 13 - 56 IU/L OUTSIDE LAB (SEE SCANNED REPORT) Blood Venous blood specimen / Unknown 02/16/2024 Naeflavia [facility] LAB BLOOD ORDERABLES Final R esult OUTSIDE LAB (SEE SCANNED REPORT) * (ABNORMAL) CBC WITH WBC DIFFERENTIAL (02/16/2024) HGB 11.2(A) 12.0 - 16.0 GM/DL OUTSIDE LAB (SEE SCANNED REPORT) Blood Venous blood specimen / Unknown 02/16/2024 Social 2 Stepflavia [facility] LAB BLOOD ORDERABLES Final R esult OUTSIDE LAB (SEE SCANNED REPORT) documented in this encounter Advance Directives Documents on File Type Date Recorded 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
--- OUTSIDE RECORDS SUMMARY | 2024-02-22 17:42 | External Medical Summary | Summary of Care ---
Author Name Unknown Organization [facility] Address [address] [address] Phone [phone] Care Team Providers Care Supervisor Research [employer] Name Role Phone Howie Gilbert MD Primary Care Provide r Encounter Details Date Type Department Care Team (Late st Contact Info) Description 02/20/2024 Population Health External Data Unspecified Department Allergies No known active allergiesdocumented as of this encounter (statuses as of 02/20/2024) Medications ONETOUCH DELICA LANCETS 33G MISC Up to 4 times daily 100 Each 6 11/25/19 15 Active Glucose Blood (ONETOUCH ULTRA BLUE) STRP Use as directed 4 times a day as needed (Diabetes). Use up to four times a day as directed 100 Strip 11 02/04/20 18 Active Nebulizers (NEBULIZER COMPRESSOR) MISCIndications:CO PD, group B, by GOLD 2017 classification ([facility] [...] in the morning. 30 Tab 5 12/03/19 Active Meclizine HCl 12.5 MG Oral Tablet (ANTIVERT) Take 1 Tablet by mouth 3 times a day as needed. Active Breo Ellipta 200-25 MCG/INH Inhalation Aerosol Powder Breath Activated (fluticasone furoate-vilanterol )Indications:COPD, group B, by GOLD 2017 classification ([facility]) Inhale by mouth 1 Puff in the morning. 60 Each 08/23/19 Active Auryxia 1 GM 210 MG(Fe) Oral [...] 10:42 AM EST 11/10/19 23 Active Nystatin 117064 UNIT/GM External Powder (Nystop) Apply topically to [...] days a week 72 Capsule 5 08/13/19 Active Atorvastatin Calcium 80 MG Oral Tablet (Lipitor) Take 1 Tablet by mouth every night at bedtime. 30 Tablet 11/04/19 Active Midodrine HCl 5 MG Oral Tablet [...] as of this encounter (statuses as of 02/20/2024) Active Problems Problem Noted Date Diagnosed Date [...] as of this encounter (statuses as of 02/20/2024) Resolved Problems Problem Noted Date Diagnosed Date [...] (08/09/2022 11:02 AM EDT): Needs colonoscopy scheduled -[facility] Palliative care encounter 06/07/2021 Hypothyroidism 05/31/2021 05/27/2022 [...] the pl SDH (subdural hematoma) 04/20/2019 05/03/2019 Overview (08/05/2019): acute Ecchymosis 04/20/2019 09/08/2020 Old [...] as of this encounter (statuses as of 02/20/2024) Immunizations Name Administration Dates Next Due COVID-19 mRNA, LNP-s, No Pre serve, 2-Dose Series ([employer]) 01/02/2021,06/21/2020,05/24/2020 COVID-19, mRNA, LNP-s, PF, B ooster, [...] Documents on File Type Date Recorded 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 Power of Sales And Customer Relations Rep 12/16/2018 10:33 AM Wesley Schmitt Power of Sales And Customer Relations Rep - Medical Low Pg 6 - signed 07/27/2001 * Full Code (Latest Code Status on [...] Communication Wesley Lee [place] Spouse Health Care Age nt (per Health Care Power of Sales And Customer Relations Rep document) Carmen Hughes Adult Child Health Care Agen t (per Health Care Power of Sales And Customer Relations Rep document) Jeanne Schmitt Adult Child Health Care Agen t (per Health Care Power of Sales And Customer Relations Rep document) Care Teams Supervisor Research Shop Relationship Specialty Start Date End Date Howie Gilbert MD [address] [place] [id number] PCP - General Family Medicine 11/14/23 documented as of this encounter
== END 2024-02-20 14:00 ==
LOC: ED 09:30 → EDINP 09:30 → 3W 19:26

== ENCOUNTER 2024-05-06 18:49 | Inpatient (IN) ==
[~2024-05-06 18:49] MED LIST changes: -ACETAMINOPHEN 325 MG TAB PO PRN; -EPOETIN ALFA 4,000 UNIT/ML VIAL IV ONE; -ONDANSETRON INJ 2 MG/ML 2 ML VIAL IV PRN; -POLYETHYLENE (MIRALAX) 17 GM PACK PO PRN; +ROCURONIUM BROMIDE 10 MG/ML 5 ML VIAL IV ONE; -SODIUM CHLORIDE 0.9% 1000ML 1,000 ML IV PRN; +fentaNYL citrate PF 100 MCG/2 ML VIAL IV ONE
[2024-05-06 19:10] LABS: Base Excess VBG 8.4 mEq/L; HCO3 VBG 35 mmol/L; Oxygen Saturation VBG 69.1 %; PCO2 VBG 55 mmHg (38-50); PO2 VBG 40 mmHg; pH VBG 7.41 (7.36-7.41)
--- NOTE | 2024-05-06 19:16 | Emergency Department Note ---
Impression & Plan Acute hypoxemic respiratory failure, Sepsis, Acute confusion, Elevated troponin, Influenza A, Pulmonary vascular congestion, Elevated brain natriuretic peptide (BNP) level, Endotracheally intubated, Elevated procalcitonin, Leukocytosis ED Provider Note HISTORY OF PRESENT ILLNESS: Patient is a 78-year-old female presenting with confusion and shortness of breath. Patient presents from [facility]. Staff called 911 as the patient had a fever and was more lethargic today. I called the facility to get more of a history, as EMS reports that the patient was diagnosed 3 days ago. Staff at facility reports that yesterday the patient seemed to be short of breath and had a low-grade fever and was more lethargic. They state that they did a respiratory panel that resulted today and was positive for influenza A. She is a hemodialysis patient and receives Friday/Friday/Friday dialysis tentative full session yesterday. Patient is full code. Staff report that tonight the patient had a fever at 1500 of 101 and they gave her a dose of Tylenol. They report he did her temperature at 1800 and her temperature was up to 103 and the patient seemed to be more short of breath and more lethargic, prompting them to call 911. Staff at the facility who I spoke with stated that the doctor at the facility had initially ordered 30 mg of Tamiflu, but they "do not have this in their pharmacy on hand and would not have it until tomorrow." Patient does not wear any supplemental oxygen at baseline per the facility. Reports that she is only on CPAP at nighttime. ROS: as above PHYSICAL EXAM: Constitutional: Patient appears in no acute distress. HENT: Head: Normocephalic and atraumatic. Eyes: EOMI, PERRL Mouth/Throat: Mucous membranes moist. Neck: Trachea midline. Neck supple. Cardiovascular: RRR, No murmurs, rubs or gallops. Intact distal pulses. Pulmonary/Chest: No respiratory distress. Breath sounds clear and equal bilaterally. Coarse breath sounds bilaterally. Patient started coughing on assessment and seems very wet as if she has respiratory secretions. Abdominal: Abdomen soft, no tenderness, rebound or guarding. Musculoskeletal: No edema, tenderness or deformity noted. Skin: Warm and dry. No rash, erythema, pallor or cyanosis Neurological: Alert but lethargic. CN II-XII grossly intact, moving all extremities equally and fully. MDM: - Vitals signs stable. - History obtained via EMS, given patient has lethargy and confusion. History as above. - Chronic conditions affecting care: Parkinson's disease; ESRD (on M/W/F HD); LBBB; hypothyroidism; HTN; DM-2 - Differential diagnoses include, but are not limited to: Congestive heart failure; acute coronary syndrome; COPD/asthma exacerbation; pulmonary edema; pulmonary embolism; pneumonia; pneumothorax; viral syndrome - Order placed for continuous cardiac monitoring. At this time, monitor showed rate of 83 bpm with normal sinus rhythm, per my interpretation. - External medical records reviewed. Discharge summary dated 02/19/2024 was reviewed. Patient was admitted that time for acute metabolic encephalopathy and acute on chronic hypoxic respiratory failure. - EKG image interpreted by myself showed normal sinus rhythm. Rate 85 bpm. QT 436. No acute ischemic changes. Noted to have a left bundle branch block and occasional PVCs. Patient's left bundle branch block is known and seen on previous EKGs. - Laboratory workup interpreted by myself showed leukocytosis (WBC 12.35) with neutrophil predominance; normal PT/INR; ESRD (Cr 5.87); elevated troponin (79); elevated BNP (1139); elevated procalcitonin (2.49); normal lactate - VBG shows elevated pCO2 - CXR image reviewed by myself showed pulmonary vascular congestion, per my interpretation. - Blood cultures obtained - IV daptomycin ordered - Patient tested positive for influenza A on viral swab. - Given patient's chest x-ray findings concerning for fluid overload in the setting of her ESRD status, sepsis fluids were not ordered. Patient sepsis fluid volume based on ideal body weight is 1568.10 mL - On reassessment at 20:20, patient is significantly more lethargic and now no longer has a gag reflex with testing. Her oxygen requirement is now up to 6 L via oxime mask. Given her significant altered mental status, unable to place the patient on BiPAP and decision was made to intubate the patient. - Rapid sequence intubation performed with 50 mcg of IV fentanyl and paralysis with 70 mg of IV rocuronium. Patient was given additional 50 mcg of IV fentanyl after the rocuronium for further sedation. Initially intubated with 7.5 ET tube, but on removal of the glide scope blade from the patient's mouth and with bagging the patient, noted to have significant air leak and gurgling, concerning for potential dislodgment of the tube. On reassessment with the glide scope, the patient's tube was dislodged above the vocal cords. 7.5 tube was removed and a 7.0 ET tube was placed and seen to progress through the vocal cords patient did have transient episode of hypoxia down to 88% with tube exchange. She recovered well with further oxygenation with saturations of 96%. - Kirby and OG placed by nursing staff. - Post intubation CXR image interpreted myself showed OG tube passing beneath the diaphragm and into the stomach and ET tube appropriately placed, per my interpretation. - Patient started on propofol postintubation for sedation. She was initially on 5 mg/kg, but she became hypotensive and was decreased to 2.5 mg/kg. - Discussed case with RUBEN on for the intensive care unit, Verónica Salinas, about the patient's presentation and now intubated status. - Discussion was had with ed case manager about patient's case and need for admission - Hospitalist, Dr. Galaviz, consulted for admission - Patient admitted to [facility] for further evaluation and management. PROCEDURE: Endotracheal Intubation Indication: Altered mental status; inability to protect airway The patient was on 100% oxygen via NRB prior to the procedure. Suction, airway equipment, RSI drugs, respiratory equipment, and appropriate personnel were prepared prior to the initiation of the procedure. A time out was taken. Induction was performed with a total of 100 mcg IV fentanyl. Patient was then paralyzed with 70 mg IV rocuronium. After observing the clinical benefit of the medications, the airway was easily visualized utilizing a S3 glidescope blade. Initially a 7.5 ET tube was placed to 24, but when the cuff was inflated and breaths were given there was a significant air leak and on reassessment the tube was noted to be displaced. A 7.0 size ETT tube was placed atraumatically to 24 cm using standard technique. The cuff inflated without signs of malfunction. There were bilateral breath sounds, positive colormetric change, no gastric sounds, a good capnography waveform, and post procedure pulse oximetry was 96%. Post intubation sedation was administered using propofol. There were no complications. I have personally spent 63 minutes of critical care time in the direct management of this patient. This includes bedside care, interpretation of diagnostic studies, and testing, discussion with consultants, patient, and family members, and other required patient management activities. This 63 minutes is in excess of all separately billable procedures. ASSESSMENT AND PLAN: Diagnosis: acute hypoxic respiratory failure; sepsis; acute confusion; influenza A infection; pulmonary vascular congestion; leukocytosis; elevated BNP; elevated troponin; elevated procalcitonin; endotracheally intubated Plan: admit Past Med/Surg History Problem List (Updated 05/06/24 @ 20:49 by Neha Kim MD) Leukocytosis (Acute) Elevated procalcitonin (Acute) Endotracheally intubated (Acute) Elevated brain natriuretic peptide (BNP) level (Acute) Pulmonary vascular congestion (Acute) Influenza A (Acute) Elevated troponin (Acute) Acute confusion (Acute) Sepsis (Acute) Acute hypoxemic respiratory failure (Acute) Pulmonary edema (Acute) Acute respiratory failure with hypoxia RENÉ (obstructive sleep apnea) Diet-controlled type 2 diabetes mellitus Acute on chronic hypoxic respiratory failure (Acute) Chronic hypoxemic respiratory failure Noncompliance with renal dialysis Acute metabolic encephalopathy Hypotension (Acute) Confusion (Acute) Hypothyroidism Sinus bradycardia Hypotension Hemodialysis status (Acute) Anemia (Acute) LBBB (left bundle branch block) (Acute) DM type 2 (diabetes mellitus, type 2) Elevated troponin (Acute) Hypertension Toxic metabolic encephalopathy Dialysis disequilibrium syndrome (Acute) Acute on chronic respiratory failure with hypoxemia Leukocytosis LBBB (left bundle branch block) (Acute) ESRD (end stage renal disease) on dialysis (Acute) Anemia of chronic disease End-stage renal disease (ESRD) (Acute) Generalized weakness Parkinson disease Medical History (Updated 05/06/24 @ 20:49 by Neha Kim MD) ESRD on hemodialysis Thickened endometrium Acute ischemic stroke NSTEMI (non-ST elevated myocardial infarction) Elevated troponin I level AV fistula R arm Limb alert care status R arm History of recent hospitalization d/c 09/09/22>per medical record, pt sent to ER at [facility] following dialysis for reddened sores on her buttocks. Admitting dx was enterococcus UTI, decubitus ulcer and sacral cellulitis. Difficult intravenous access Black stools Mobility impaired pt non compliant with hx pt treatments / PT IS IN WHEELCHAIR/TOTAL ASSIST Poor short term memory LYTTON (hard of hearing) COPD (chronic obstructive pulmonary disease) no medications for currently History of stroke 2020- pts spouse poor historian pt denies hx stroke History of anesthesia reaction "hard time waking up" Hx: recurrent pneumonia History of COVID-19 ? early 2021- mild congestion, no hospitalization, no current issues Non-ST elevation IA (NSTEMI) pt spouse not sure/ mild ? remembers something mentioned in hx/ ? details ESRD (end stage renal disease) on dialysis tues, thur & sat ([place]) Aspiration pneumonia HX Morbid obesity Rheumatoid arthritis ? current status/no meds for Chronic diastolic heart failure EF 50% on 01/2020 echo RACHEL (iron deficiency anemia) Subdural hematoma hx fall 2019 - tx to [facility]/no surgical intervention RENÉ on CPAP Depression Meniere's disease Generalized anxiety disorder Dyslipidemia Restless leg syndrome Diabetes mellitus, type II hx / NO MEDS HTN (hypertension) Surgical History Hx of arteriovenostomy for renal dialysis right arm History of tubal ligation History of carpal tunnel surgery B/L History of orthopedic surgery " bilat heel surgery" H/O sinus surgery Hx of total knee arthroplasty B/L Family History Other AAA (abdominal aortic aneurysm) Diabetes Family history non-contributory Hypertension Myotonic dystrophy Social History Smoking Status: Never smoker Tobacco Type: Cigarettes Cigarettes Per Day: 0.25ppd; Second Hand Exposure: No; Do You Dip or Chew Tobacco: No; Hx Alcohol Use: No Hx Substance Use: No Preferred Language: Tongan Communication Ability: Effective Communication Ability Comment: pt sometimes has difficulty understanding things, 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: No Beliefs That Will Affect Care: None marital status: Current Living Situation: Long-Term Current Living Situation Comment: Lives at home with , bed bound Feels Safe at Home: Yes Assistive Devices: Mechanical Lift, Oxygen - Continuous and Wheelchair Allergies Allergies Allergy/AdvReac Type Severity Reaction Status Date / Time No Known Allergies Allergy Verified 05/06/24 20:04 Home Meds Home Medications Medication Instructions Recorded Confirmed aspirin 81 mg tablet,delayed 162 mg PO 3XWK 11/15/21 05/06/24 release atorvastatin 80 mg tablet 80 mg PO QPM 11/15/21 05/06/24 carbidopa 25 mg-levodopa 100 mg 1 tab PO TIDM 11/15/21 05/06/24 tablet docusate sodium 100 mg capsule 100 mg PO DAILY 11/15/21 05/06/24 (Colace) levothyroxine 125 mcg tablet 125 mcg PO QAM 11/15/21 05/06/24 pregabalin 100 mg capsule 100 mg PO BID 11/15/21 05/06/24 pantoprazole 20 mg tablet,delayed 20 mg PO BID 05/23/22 05/06/24 release epinephrine 0.3 mg/0.3 mL 0.3 mg IM DIRECTED PRN 09/05/22 05/06/24 injection, auto-injector (EpiPen) Anaphylaxis melatonin 10 mg tablet 10 mg PO HS 09/05/22 05/06/24 ferric citrate 210 mg iron tablet 420 mg PO WM 01/21/23 05/06/24 (Auryxia) fluticasone furoate 200 1 inh inhalation AMHS 01/21/23 05/06/24 mcg-vilanterol 25 mcg/dose inhalation powder (Breo Ellipta) cholecalciferol (vitamin D3) 25 25 mcg PO DAILY 10/27/23 05/06/24 mcg (1,000 unit) capsule midodrine 5 mg tablet 5 mg PO TID 10/27/23 05/06/24 vitamin B complex-vitamin C-folic 1 tab PO DAILY 10/27/23 05/06/24 acid 0.8 mg tablet (Nanci-Samuel) acetaminophen 325 mg tablet 325 - 650 mg PO Q6 PRN MILD-SEVERE 05/06/24 05/06/24 PAIN acetaminophen 500 mg tablet 500 mg PO QID 3G 05/06/24 05/06/24 dextromethorphan-guaifenesin 10 2.5 ml PO Q4 PRN Cough 05/06/24 05/06/24 mg-200 mg/5 mL oral liquid diclofenac sodium 1 % topical gel 2 g topical QID 05/06/24 05/06/24 escitalopram oxalate 10 mg tablet 10 mg PO QAM 05/06/24 05/06/24 ferric citrate 210 mg iron tablet 210 mg PO . NEEDED PRN WITH 05/06/24 05/06/24 (Auryxia) SNACKS guaifenesin 100 mg/5 mL oral 200 mg PO Q4H PRN Cough 05/06/24 05/06/24 liquid (Siltussin SA) ipratropium 0.5 mg-albuterol 3 mg 3 ml inhalation Q4 PRN Wheezing 05/06/24 05/06/24 (2.5 mg base)/3 mL nebulization soln ipratropium 0.5 mg-albuterol 3 mg 3 ml inhalation TID 05/06/24 05/06/24 (2.5 mg base)/3 mL nebulization soln lidocaine-prilocaine 2.5 %-2.5 % 1 applic topical 3XWK 05/06/24 05/06/24 topical cream midodrine 10 mg tablet 5 mg PO 3XWK 05/06/24 05/06/24 midodrine 5 mg tablet 5 mg PO UD 05/06/24 05/06/24 ondansetron HCl 4 mg tablet 4 mg PO Q6H PRN Nausea And Vomiting 05/06/24 05/06/24 sertraline 25 mg tablet 25 mg PO UD 05/06/24 05/06/24 sertraline 50 mg tablet 50 mg PO QAM 05/06/24 05/06/24 Results & Data (ED) Vital Signs Vital Signs - 24 hr 05/06/24 18:54 05/06/24 18:58 05/06/24 18:59 Temperature 37.1 C Temperature Source Oral Pulse Rate 85 83 Respiratory Rate 24 Respiratory Depth Normal Blood Pressure 136/51 L Blood Pressure Mean 79 Pulse Oximetry 83 L 92 Oxygen Delivery Method Room Air Nasal Cannula Oxygen Flow Rate 4 Sepsis Recent Fever Within 48 Hours Yes Sepsis New/Unexplained Change in Mental Status No Sepsis Action Taken by Nursing No Action Required 05/06/24 19:30 05/06/24 20:00 Temperature Temperature Source Pulse Rate 79 72 Respiratory Rate 24 20 Respiratory Depth Blood Pressure 135/65 139/57 L Blood Pressure Mean 80 98 Pulse Oximetry 97 96 Oxygen Delivery Method Oxymask Oxymask Oxygen Flow Rate 6 6 Sepsis Recent Fever Within 48 Hours Sepsis New/Unexplained Change in Mental Status Sepsis Action Taken by Nursing Laboratory Data 05/06/24 18:57 05/06/24 18:57 Lab Results 05/06/24 Range/Units 18:57 WBC 12.35 H (4.8-10.8) K/ul RBC 2.86 L (4.20-5.40) M/uL Hgb 9.7 L (12.0-16.0) g/dl Hct 29.7 L (37.0-47.0) % MCV 103.8 H (80.0-100.0) fL MCH 33.9 (25.0-34.0) pg MCHC 32.7 (32.0-36.0) g/dL RDW Std Deviation 55.6 H (36.4-46.3) fL RDW Coeff of Bhavin 14.6 H (11.5-14.5) % Plt Count 185 (130-400) K/uL MPV 10.8 (9.4-12.4) fL Immature Gran % (Auto) 1.2 % Neut % (Auto) 86.2 % Lymph % (Auto) 5.4 % [place] % (Auto) 6.1 % Eos % (Auto) 0.8 % Baso % (Auto) 0.3 % Neut # (Auto) 10.64 H (1.40-6.50) K/uL Lymph # (Auto) 0.67 L (1.20-3.40) K/uL [place] # (Auto) 0.75 H (0.11-0.59) K/uL Eos # (Auto) 0.10 (0.00-0.50) K/uL Baso # (Auto) 0.04 (0.00-0.20) K/uL Immature Gran # (Auto) 0.15 (0.01-0.20) K/uL PT 10.5 (9.0-12.0) Seconds INR 1.0 (0.9-1.1) VBG pH 7.41 (7.36-7.41) VBG pCO2 55 H (38-50) mmHg VBG pO2 40 mmHg VBG HCO3 35 mmol/L VBG O2 Saturation 69.1 % VBG Base Excess 8.4 mEq/L Sodium 138 (136-145) mmol/L Potassium 4.2 (3.5-5.1) mmol/L Chloride 94 L (98-107) mmol/L Carbon Dioxide 33 H (21-32) mmol/L Anion Gap 11 (3-11) BUN 34 H (6-23) mg/dl Creatinine 5.87 H* (0.6-1.2) mg/dl Est Cr Clr Drug Dosing 9.3 ml/min eGFR 6.94 BUN/Creatinine Ratio 5.8 L (10-20) Glucose 139 H (70-99(Fasting)) mg/dl Lactate 1.1 (0.4-2.0) mmol/L Calcium 9.5 (8.6-10.3) mg/dl Magnesium 1.8 (1.7-2.4) mg/dl Total Bilirubin 0.4 (0.2-1.0) mg/dl AST 31 (13-39) U/L ALT 8 (7-52) U/L Alkaline Phosphatase 83 (34-104) U/L Troponin I High Sens 79.0 H* (0-14) pg/ml B-Natriuretic Peptide 1139 H (0-100) pg/ml Total Protein 7.6 (6.0-8.3) gm/dl Albumin 3.9 (3.4-5.0) gm/dl Globulin 3.7 (2.5-4.0) gm/dl Albumin/Globulin Ratio 1.1 (0.9-2) Procalcitonin 2.49 H (0-0.5) ng/ml SARS-CoV-2 (PCR) NEGATIVE (Negative) Influenza Type A (PCR) Positive A (Neg) Influenza Type B (PCR) Negative (Neg) RSV (RT-PCR) Negative (Neg) Administered Medications Daptomycin 450 mg/ Syringe 9 mls @ 4.5 mls/min IV Q24H [facility]; Protocol Stop: 05/08/24 19:44 Last Admin: 05/06/24 20:11 Dose: 4.5 mls/min Documented By: HEIDI Propofol (Diprivan) 1,000 mg in 100 mls @ 12.48 mls/hr IV .Q8H1M [facility]; Protocol Stop: 05/09/24 21:14 Last Titration: 05/06/24 21:02 Dose: 2.5 mcg/kg/min, 1.6 mls/hr Documented By: Admin: 05/06/24 20:36 Dose: 5 mcg/kg/min, 3.1 mls/hr Documented By: HEIDI Co-signed By: Discontinued Medications Miscellaneous (Rapid Sequence Induction Bag) Confirm Administered Dose 1 each N/A .STK-MED ONE Stop: 05/06/24 20:15 Last Admin: 05/06/24 21:08 Dose: 1 each Documented By: HEIDI Propofol (Propofol Iv Emulsion 10 Mg/Ml 100 Ml Vial) Confirm Administered Dose 1,000 mg IV .STK-MED ONE Stop: 05/06/24 20:31 Last Admin: 05/06/24 21:05 Dose: Not Given Documented By: CDM Imaging Data Radiologist's Impression: Chest X-Ray 05/06/24 19:05 EXAM: Radiograph of the Chest 1 View INDICATION: Dyspnea. TECHNIQUE: Frontal view of the chest. COMPARISON: 05/23/2022 FINDINGS: Lungs and pleural spaces: Shallow inspiration with carotid vasculature. Suspect superimposed vascular congestion. Question infiltrate or nodule in the left lung base measuring about 3.6 cm diameter. Heart: Stable large cardiac shadow. Mediastinum: Normal contour. Bones/joints: No fracture, erosion or dislocation. Soft tissues: No abnormality noted. No radiopaque foreign body noted. Upper abdomen: No abnormality noted. IMPRESSION: Limited expiratory exam with probable pulmonary vascular congestion. There is an opacity projecting over the medial left lung base which could be a calcified mitral annulus or pulmonary infiltrate/nodule. [address] recommended depending on the clinical circumstances. ACT 112: Negative or not required by law. Electronically signed by Hyun Valderrama 05-06-2024 7:34 PM Discharge Plan Visit Data Chief Complaint: Flu Like Symptoms Stated Complaint: SOB, FEVER AMS ED Provider: Neha Kim Discharge Problem: Acute hypoxemic respiratory failure, Sepsis, Acute confusion, Elevated troponin, Influenza A, Pulmonary vascular congestion, Elevated brain natriuretic peptide (BNP) level, Endotracheally intubated, Elevated procalcitonin, Leukocytosis Forms Stand Alone Forms: My [facility] Easily[employer] Prescriptions Prescriptions: No Action atorvastatin 80 mg tablet 80 mg PO QPM aspirin 81 mg Tablet,Delayed Release (Dr/Ec) 162 mg PO 3XWK Patient Comments: afternoon hours Rx Instructions: TAKE 2 TABLETS AT 0600 ON DIALYSIS DAYS....FRIDAY,FRIDAY,FRIDAY levothyroxine 125 mcg tablet 125 mcg PO QAM docusate sodium [Colace] 100 mg Capsule 100 mg PO DAILY carbidopa-levodopa 25-100 mg tablet 1 tab PO TIDM Rx Instructions: GIVE WITH MEALS ON ALL DAYS pregabalin 100 mg capsule 100 mg PO BID MDD 300MG/24HR Patient Comments: on dialysis days takes 2 in the evening , , and saturdays Rx Instructions: Patient may take additional dose after hd 3 DAYS A WEEK pantoprazole 20 mg tablet,delayed release (DR/EC) 20 mg PO BID epinephrine [EpiPen] 0.3 mg/0.3 mL Auto-Injector 0.3 mg IM DIRECTED PRN (Reason: Anaphylaxis) melatonin 10 mg Tablet 10 mg PO HS Auryxia 210 mg iron tablet 420 mg PO WM Rx Instructions: MORNING DOSE AT 6AM ON DIALYSIS DAYS (FRI/FRI/FRI) NON-DIALYSIS DAYS GIVE AT 9AM (,,FRI,FRI) fluticasone furoate-vilanterol [Breo Ellipta] 200-25 mcg/dose Blister With Device 1 inh INHALATION AMHS midodrine 5 mg Tablet 5 mg PO TID Nanci-Samuel 0.8 mg tablet 1 tab PO DAILY cholecalciferol (vitamin D3) 25 mcg (1,000 unit) Capsule 25 mcg PO DAILY acetaminophen 325 mg Tablet 325 - 650 mg PO Q6 PRN (Reason: MILD-SEVERE PAIN) acetaminophen 500 mg Tablet 500 mg PO QID Auryxia 210 mg iron tablet 210 mg PO . NEEDED PRN (Reason: WITH SNACKS) diclofenac sodium 1 % Gel 2 g TOPICAL QID Rx Instructions: APPLY TO LEFT SHOULDER escitalopram oxalate 10 mg Tablet 10 mg PO QAM ondansetron HCl 4 mg Tablet 4 mg PO Q6H PRN (Reason: Nausea And Vomiting) midodrine 5 mg Tablet 5 mg PO UD Rx Instructions: TAKE 1 TABLET DAILY ON FRIDAY,FRIDAY,FRIDAY...SEND WITH RESIDENT TO DIALYSIS....HOLD IF SPB 130 sertraline 25 mg Tablet 25 mg PO UD Rx Instructions: TAKE IN [facility] FOR 7 DAYS START 05/14/24 END 05/21/24 sertraline 50 mg Tablet 50 mg PO QAM Rx Instructions: TAKE FOR 7 DAYS....STARTING 05/06/24...ENDING 05/13/24 guaifenesin [Siltussin SA] 100 mg/5 mL Liquid 200 mg PO Q4H PRN (Reason: Cough) Rx Instructions: TAKE FOR 14 DAYS...END DATE 05/20/24 dextromethorphan-guaifenesin [Robitussin Cough-Chest Claudio DM] 10-200 mg/5 mL Liquid 2.5 ml PO Q4 PRN (Reason: Cough) Rx Instructions: GIVE 100MG midodrine 10 mg Tablet 5 mg PO 3XWK Rx Instructions: GIVE 1/2 TABLET EVERY FRI/FRI/FRI ONCE DAILY ON FRI/FRI/FRI IN ADDITION TO ROUTINE 5 MG = TOTAL 10MG ON DIALYSIS DAYS...HOLD FOR SBP >130 lidocaine-prilocaine 2.5-2.5 % cream 1 applic topical 3XWK Rx Instructions: APPLY TO AVF SITE EVERY FRI/FRI/FRI TO ACCESS SITE. 1-2 HOURS BEFORE DIALYSIS, COVER WITH OCCLUSIVE DRESSING ipratropium-albuterol 0.5 mg-3 mg(2.5 mg base)/3 mL solution for nebulization 3 ml INHALATION Q4 PRN (Reason: Wheezing) Rx Instructions: TAKE FOR 4 DAYS START 05/06/24.....END 05/20/24 ipratropium-albuterol 0.5 mg-3 mg(2.5 mg base)/3 mL solution for nebulization 3 ml INHALATION TID Rx Instructions: TAKE FOR 10 DAYS...START 05/06/24 END 05/16/24 Referrals Referrals: Nae Rodriges PA-C [Primary Care Provider] -
[2024-05-06 19:18] LABS: Basophils # (auto) 0.04 K/uL (0.00-0.20); Basophils % (auto) 0.3 %; Eosinophils % (auto) 0.8 %; Hematocrit (blood only) 29.7 % (37.0-47.0); Hemoglobin 9.7 g/dl (12.0-16.0); Immature Granulocytes # (auto) 0.15 K/uL (0.01-0.20); Immature Granulocytes % (auto) 1.2 %; Lymphocytes # (auto) 0.67 K/uL (1.20-3.40); Lymphocytes % (auto) 5.4 %; Mean Corpuscular Hemoglobin 33.9 pg (25.0-34.0); Mean Corpuscular Hgb Conc 32.7 g/dL (32.0-36.0); Mean Corpuscular Volume 103.8 fL (80.0-100.0); Mean Platelet Volume 10.8 fL (9.4-12.4); Monocytes # (auto) 0.75 K/uL (0.11-0.59); Monocytes % (auto) 6.1 %; Neutrophils # (auto) 10.64 K/uL (1.40-6.50); Neutrophils % (auto) 86.2 %; Platelet Count 185 K/uL (130-400); RDW Coefficient of Variation 14.6 % (11.5-14.5); RDW Standard Deviation 55.6 fL (36.4-46.3); Red Blood Count 2.86 M/uL (4.20-5.40); White Blood Count 12.35 K/ul (4.8-10.8)
--- NOTE | 2024-05-06 19:35 | XRay Report ---
EXAM: Radiograph of the Chest 1 View INDICATION: Dyspnea. TECHNIQUE: Frontal view of the chest. COMPARISON: 05/23/2022 FINDINGS: Lungs and pleural spaces: Shallow inspiration with carotid vasculature. Suspect superimposed vascular congestion. Question infiltrate or nodule in the left lung base measuring about 3.6 cm diameter. Heart: Stable large cardiac shadow. Mediastinum: Normal contour. Bones/joints: No fracture, erosion or dislocation. Soft tissues: No abnormality noted. No radiopaque foreign body noted. Upper abdomen: No abnormality noted. IMPRESSION: Limited expiratory exam with probable pulmonary vascular congestion. There is an opacity projecting over the medial left lung base which could be a calcified mitral annulus or pulmonary infiltrate/nodule. [address] recommended depending on the clinical circumstances. ACT 112: Negative or not required by law. Electronically signed by Hyun Valderrama 05-06-2024 7:34 PM
[2024-05-06 19:38] LABS: Albumin Globulin Ratio 1.1 (0.9-2); Albumin Level 3.9 gm/dl (3.4-5.0); BUN Creatinine Ratio 5.8 (10-20); Bilirubin,Total 0.4 mg/dl (0.2-1.0); Calcium 9.5 mg/dl (8.6-10.3); Creatinine Clr Calc Pharmacy 9.3 ml/min; Globulin 3.7 gm/dl (2.5-4.0); Magnesium 1.8 mg/dl (1.7-2.4); Potassium 4.2 mmol/L (3.5-5.1); Total Protein 7.6 gm/dl (6.0-8.3)
[2024-05-06 19:46] LABS: Prothrombin Time 10.5 Seconds (9.0-12.0)
[2024-05-06] MEDS: DAPTOmycin 450 MG in SYRINGE 0 ML IV SCH (20:11)
[2024-05-06 20:22] LABS: Influenza A virus by PCR Positive (Neg); Influenza B virus by PCR Negative (Neg); RSV by PCR Negative (Neg); SARS CoV2 RNA(COVID-19) Ceph NEGATIVE (Negative)
[2024-05-06] MEDS: propofoL 1,000 MG/100 ML VIAL IV SCH (20:36)
[2024-05-06] MEDS: PROPOFOL IV EMULSION 10 MG/ML 100 ML VIAL IV ONE (21:05)
[2024-05-06] MEDS: RAPID SEQUENCE INDUCTION BAG ONE (21:08)
[2024-05-06] MEDS ORDERED: VANCOMYCIN CONSULT ACTIVE PRN ×2 (21:10→21:16)
[2024-05-06] MEDS ORDERED: STAT IV Infusion **Titration per Protocol STA (21:19)
[2024-05-06] MEDS ORDERED: ACETAMINOPHEN 325 MG TAB PO PRN (21:19)
[2024-05-06 21:26] LABS: Appearance Urine Turbid (Clear); Bacteria Urine Automated 1+ (None Seen); Bilirubin Urine Negative (Negative); Blood Urine 3+ (Negative); Color Urine Dark Yellow; Glucose Urine UA Negative (Negative); Ketones Urine Negative (Negative); Leukocyte Esterase Urine 1+ (Negative); Nitrite Urine Negative (Negative); Protein Urine 3+ (Negative); RBC Urine Automated >20 /hpf (0-2); Specific Gravity Urine 1.015 (1.000-1.030); Urobilinogen Urine Negative (Negative); pH Urine 8.5 (4.5-7.5)
[2024-05-06] MEDS: PROPOFOL BOLUS FROM BAG IV PRN (21:30)
[2024-05-06] MEDS: OSELTAMIVIR PHOSPHATE SUSP 30 MG/5 ML UDP PO STA (21:53)
--- NOTE | 2024-05-06 21:58 | Critical Care Consultation ---
Date of Consultation May 06, 2024 Assessment & Plan (1) Sepsis: (2) Acute hypoxemic respiratory failure: (3) Pneumonia: (4) Influenza A: (5) Acute metabolic encephalopathy: Plan Reason Critically Ill: 1. Acute on chronic hypoxemic respiratory failure 2/2 #2 and limited respiratory reserve 2. Influenza A 3. Metabolic encephalopathy 4. Possible UTI 5. Sepsis 6. NSTEMI, type II Neuro - RASS GOAL 0 to -1 APAP PRN pain/fever Propofol and fentanyl gtt Sinemet Per chart review, patient on sertraline and escitalopram (Med rec to be completed) Hold Lyrica for now Cardiac - EKG sinus with PVCs, non-ischemic. Normal QTc MAP goal > 65mmHg POCUS on arrival to ICU Continue statin Restart midodrine Respiratory - Schedule DuoNeb, Albuterol PRN SpO2 goal 88-92% SAT/SBT daily VAP protocol HOB 30-45 CT Chest pending GI - Diet: NPO except meds via OGT SUP: PPI Bowel regimen: Miralax RENAL/LYTES - Nephrology consult for iHD, appreciate recommendations Replete electrolytes as indicated Kirby was placed in ED, UA able to be obtained. Evaluate for removal daily. She is about 5kg above her dry weight according to our records. Will avoid IVF. Due for iHD tomorrow Maintain net even to net negative ENDO - Levoxyl BG 140-180 per SCCM guidelines ISS if needed while inpatient HEME - No acute concerns ID - Given patient lives in a nursing facility, has been on IV antibiotics in the last 90 days, she is at risk for pseudomonas infection. Start Zosyn. 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 Start Vancomycin in place on daptomycin. De-escalate coverage as guided by culture data. BC x2 pending, UA +, UCx pending, procalcitonin elevated, Flu A+, sputum Cx pending LINES/TUBES/DRAINS - PIV x2 Kirby (Day #1) ETT (Day #1) OGT (Day #1) DVT PROPHYLAXIS - [facility] I have personally spent 35 minutes of critical care time in the direct management of this patient. This is a life/limb threatening event. This includes time spent evaluating patient, direct bedside care, chart review, placing orders, interpretation of diagnostic studies, discussion with consultants, patient, and family members, as well as other required patient management activities. This time is exclusive of all separately billable procedures, and teaching time and separate from and in addition to any other critical care service time. Thank you for allowing us to participate in the care of this patient. Please refer to my attending physician's documentation for any further recommendations. History of Present Illness Reason for Consultation: Acute on chronic hypoxemic respiratory failure Requesting Physician: Judy Attending Physician: [facility] Hospitalist History of Present Illness Ms. Kami Hassan is a 78YOF with a history of parkinsonism, ambulatory dysfunction, mild cognitive impairment, obesity hypoventilation, LBBB, HFpEF, anemia, hypothyroidism, and ESRD (MWF iHD) who presented to [facility] ED on the evening of 05/06/2024 due to AMS and shortness of breath. Per report, Ms. Hassan is a resident of [facility] where the staff noticed she had a fever and was lethargic earlier in the day. She had a fever as high as 103F at 1800. She was Flu A+. 911 called by staff. She was started on 30mg Tamiflu, but this was not able to be filled prior to presentation. On arrival to ED patient lethargic, in no acute distress. SpO2 83%. Placed on Oxymask. Imaging was concerning for fluid overload and possible infiltrate LLL. She subsequently became obtunded, was intubated with 7.0 ETT in ED. Started on propofol. Received empiric daptomycin from ED. Remainder of work up showed leukocytosis with neutrophil predominance, Cr 5.87 without other metabolic derangements. VBG WNL. BNP 1139. Procalcitonin 2.49. Troponin 79. Admitted to ICU for continuation of care. Patient was seen on arrival to ICU 103. She is intubated and sedated. No acute distress. Afebrile. Hemodynamically stable. Bright red blood present within in- line suction. ETT pulled back by 1cm based on review of CT. Allergies Allergy/AdvReac Type Severity Reaction Status Date / Time No Known Allergies Allergy Verified 05/06/24 20:04 Home Medications Medication Instructions Recorded Confirmed Type aspirin 81 mg tablet,delayed 162 mg PO 3XWK 11/15/21 05/06/24 History release atorvastatin 80 mg tablet 80 mg PO QPM 11/15/21 05/06/24 History carbidopa 25 mg-levodopa 100 mg 1 tab PO TIDM 11/15/21 05/06/24 History tablet docusate sodium 100 mg capsule 100 mg PO DAILY 11/15/21 05/06/24 History (Colace) levothyroxine 125 mcg tablet 125 mcg PO QAM 11/15/21 05/06/24 History pregabalin 100 mg capsule 100 mg PO BID 11/15/21 05/06/24 History pantoprazole 20 mg tablet,delayed 20 mg PO BID 05/23/22 05/06/24 History release epinephrine 0.3 mg/0.3 mL 0.3 mg IM DIRECTED PRN 09/05/22 05/06/24 History injection, auto-injector (EpiPen) Anaphylaxis melatonin 10 mg tablet 10 mg PO HS 09/05/22 05/06/24 History ferric citrate 210 mg iron tablet 420 mg PO WM 01/21/23 05/06/24 History (Auryxia) fluticasone furoate 200 1 inh inhalation AMHS 01/21/23 05/06/24 History mcg-vilanterol 25 mcg/dose inhalation powder (Breo Ellipta) cholecalciferol (vitamin D3) 25 25 mcg PO DAILY 10/27/23 05/06/24 History mcg (1,000 unit) capsule midodrine 5 mg tablet 5 mg PO TID 10/27/23 05/06/24 History vitamin B complex-vitamin C-folic 1 tab PO DAILY 10/27/23 05/06/24 History acid 0.8 mg tablet (Nanci-Samuel) acetaminophen 325 mg tablet 325 - 650 mg PO Q6 PRN MILD-SEVERE 05/06/24 05/06/24 History PAIN acetaminophen 500 mg tablet 500 mg PO QID 3G 05/06/24 05/06/24 History dextromethorphan-guaifenesin 10 2.5 ml PO Q4 PRN Cough 05/06/24 05/06/24 History mg-200 mg/5 mL oral liquid diclofenac sodium 1 % topical gel 2 g topical QID 05/06/24 05/06/24 History escitalopram oxalate 10 mg tablet 10 mg PO QAM 05/06/24 05/06/24 History ferric citrate 210 mg iron tablet 210 mg PO . NEEDED PRN WITH 05/06/2405/06 History (Auryxia) SNACKS guaifenesin 100 mg/5 mL oral 200 mg PO Q4H PRN Cough 05/06/24 05/06/24 History liquid (Siltussin SA) ipratropium 0.5 mg-albuterol 3 mg 3 ml inhalation Q4 PRN Wheezing 05/06/24 05/06/24 History (2.5 mg base)/3 mL nebulization soln ipratropium 0.5 mg-albuterol 3 mg 3 ml inhalation TID 05/06/24 05/06/24 History (2.5 mg base)/3 mL nebulization soln lidocaine-prilocaine 2.5 %-2.5 % 1 applic topical 3XWK 05/06/24 05/06/24 History topical cream midodrine 10 mg tablet 5 mg PO 3XWK 05/06/24 05/06/24 History midodrine 5 mg tablet 5 mg PO UD 05/06/24 05/06/24 History ondansetron HCl 4 mg tablet 4 mg PO Q6H PRN Nausea And Vomiting 05/06/24 05/06/24 History sertraline 25 mg tablet 25 mg PO UD 05/06/24 05/06/24 History sertraline 50 mg tablet 50 mg PO QAM 05/06/24 05/06/24 History Patient History Medical History ESRD on hemodialysis Thickened endometrium Acute ischemic stroke NSTEMI (non-ST elevated myocardial infarction) Elevated troponin I level AV fistula R arm Limb alert care status R arm History of recent hospitalization d/c 09/09/22>per medical record, pt sent to ER at [facility] following dialysis for reddened sores on her buttocks. Admitting dx was enterococcus UTI, decubitus ulcer and sacral cellulitis. Difficult intravenous access Black stools Mobility impaired pt non compliant with hx pt treatments / PT IS IN WHEELCHAIR/TOTAL ASSIST Poor short term memory [place] (hard of hearing) COPD (chronic obstructive pulmonary disease) no medications for currently History of stroke 2019- pts spouse poor historian pt denies hx stroke History of anesthesia reaction "hard time waking up" Hx: recurrent pneumonia History of COVID-19 ? early 2021- mild congestion, no hospitalization, no current issues Non-ST elevation [place] (NSTEMI) pt spouse not sure/ mild ? remembers something mentioned in hx/ ? details ESRD (end stage renal disease) on dialysis tues, thur & sat ([place]) Aspiration pneumonia HX Morbid obesity Rheumatoid arthritis ? current status/no meds for Chronic diastolic heart failure EF 50% on 01/2020 echo RACHEL (iron deficiency anemia) Subdural hematoma hx fall 2019 - tx to [facility]/no surgical intervention RENÉ on CPAP Depression Meniere's disease Generalized anxiety disorder Dyslipidemia Restless leg syndrome Diabetes mellitus, type II hx / NO MEDS HTN (hypertension) Surgical History Hx of arteriovenostomy for renal dialysis right arm History of tubal ligation History of carpal tunnel surgery B/L History of orthopedic surgery " bilat heel surgery" H/O sinus surgery Hx of total knee arthroplasty B/L Family History Other AAA (abdominal aortic aneurysm) Diabetes Family history non-contributory Hypertension Myotonic dystrophy Social History Smoking Status: Unknown if ever smoked Tobacco Type: Cigarettes Cigarettes Per Day: 0.25ppd; Second Hand Exposure: No; Do You Dip or Chew Tobacco: No; Hx Alcohol Use: No Hx Substance Use: No Preferred Language: Latvian Communication Ability: Impaired Communication Ability Comment: intubated [employer] [facility] Required: No Beliefs That Will Affect Care: None marital status: Current Living Situation: Group Home Current Living Situation Comment: [facility] Other Information That Helps Us Care for You: No Feels Safe at Home: Yes Safety Concerns: Feels Safe At This Time Assistive Devices: Mechanical Lift, Oxygen - Continuous and Wheelchair Review of Systems Review of Systems: Unobtainable due to endotracheal tube Physical Exam Constitutional: + obese and + mechanically ventilated; n o acute distress Eyes: + anicteric sclerae and PERRL ENMT: MM moist. ETT in place Neck: trachea midline and + thick neck Respiratory: symmetric chest movement; no respiratory distress Auscultation: + diminished lung sounds, + rales and + rhonchi; no wheezes Cardiovascular: R arm fistula with palpable bruit Irregular rhythm. No murmur audible. No peripheral edema Gastrointestinal (Abdomen): Inspection/Auscultation: normal bowel sounds obese. Striae present Musculoskeletal: Head/Neck/Chest: normocephalic and head atraumatic Skin: no rashes, warm and dry Neurologic: moves all extremities and + obtunded Genitourinary: Kirby in place Results & Data Results & Data Vital Signs (Past 12 Hours) Vital Signs Temp Pulse Resp BP Pulse Ox O2 Del Method O2 Flow Rate 05/06/24 21:48 62 18 87/40 L 91 05/06/24 21:40 63 18 87/40 L 91 Mechanical Vent 05/06/24 21:30 67 12 113/51 L 93 Mechanical Vent 05/06/24 21:15 63 100/49 L 99 Mechanical Vent 05/06/24 21:07 65 90/48 L 99 05/06/24 21:07 90/48 L 05/06/24 21:00 71 89/47 L 98 05/06/24 20:45 105/49 L 99 Mechanical Vent 05/06/24 20:35 77 18 99 05/06/24 20:31 98 05/06/24 20:30 84 20 165/92 H 98 05/06/24 20:00 72 20 139/57 L 96 Oxymask 6 05/06/24 19:30 79 24 135/65 97 Oxymask 6 05/06/24 18:59 92 Nasal Cannula 4 05/06/24 18:58 37.1 C 83 24 136/51 L 83 L Room Air 05/06/24 18:54 85 FiO2 05/06/24 21:48 05/06/24 21:40 05/06/24 21:30 05/06/24 21:15 05/06/24 21:07 05/06/24 21:07 05/06/24 21:00 05/06/24 20:45 05/06/24 20:35 100 05/06/24 20:31 05/06/24 20:30 05/06/24 20:00 05/06/24 19:30 05/06/24 18:59 05/06/24 18:58 05/06/24 18:54 Laboratory Results Reviewed Diagnostic Findings Reviewed Medications Administered See PITER [facility]URRAYG Procedure Codes (Charges) Ventilator Management Ventilator Managment: 81789 Ventilation assist and management; Hospital inpt/obs, intl day Coding Level of Care Code 83880 CRITICAL CARE 1ST 30-74M Diagnoses Sepsis A41.9 Acute hypoxemic respiratory failure J96.01 Pneumonia J18.9 Influenza A J10.1 Acute metabolic encephalopathy G93.41 CPT Codes Ventilator Management - Ventilator Managment: [id number] Ventilation assist and management; Hospital inpt/obs, intl day ([id number]) Time Spent (min) 35
--- NOTE | 2024-05-06 22:12 | History & Physical Report ---
Date of Service May 06, 2024 Assessment & Plan (1) Acute hypoxemic respiratory failure: (2) Acute metabolic encephalopathy: (3) Influenza A: Plan Patient is a 78-year-old female with past medical history of ESRD on hemodialysis, COPD on 3 L of oxygen, Parkinson's disease, hypothyroidism, type 2 diabetes mellitus, RENÉ, hyperlipidemia, generalized anxiety disorder who was sent from [facility] after she was found to be confused and short of breath. Acute on chronic hypoxic respiratory failure Acute metabolic encephalopathy Influenza A Possible pneumonia Patient presented to the hospital with confusion and shortness of breath Influenza A positive Chest x-ray shows possible opacity projecting over the medial left lung base Pro-Ruben elevated Patient intubated in the ED due to altered mental status Started on Tamiflu; 30 mg now and 30 mg with dialysis Started on empiric antibiotic with Zosyn and vancomycin; will follow blood culture and MRSA nares Vent management/sedatives as per ICU Elevated troponin in setting of influenza A/ESRD on hemodialysis Likely demand ischemia High sensitive troponin elevated to 80s with no delta difference Last echocardiogram in May 2023 showed EF of 50 to 55% Continue telemonitoring Chronic conditions; ESRD on hemodialysis; cardiology consulted Parkinson's disease; continue on carbidopa/levodopa Hypothyroidism; continue levothyroxine RENÉ on CPAP; currently intubated Orthostatic Hypotension; continue on midodrine Full code DVT prophylaxis heparin Updated patient's over the phone regarding patient's current clinical condition. He will reach out to his daughters to update them as well. total critical evaluating patient, direct bedside care, chart review, placing orders, interpretation of diagnostic studies, discussion with consultants, patient, and family members, as well as other required patient management activities is 75 minutes Please note the above document was generated using voice recognition software. It may contain grammatical, syntax or spelling errors. Any formal questions or concerns about the content, text or information contained within the body of this dictation should be directly addressed to the provider for clarification Admission and Anticipated Discharge Date Admission Date: May 06, 2024 History of Present Illness Chief Complaint: Confusion and shortness of breath for 1 day Primary Care Provider: Nae Rodriges PA-C History obtained from chart review. No history was able to be obtained from the patient as she was intubated and sedated. Past medical history of ESRD on hemodialysis, COPD on 3 L of oxygen, Parkinson's disease, hypothyroidism, type 2 diabetes mellitus, RENÉ, hyperlipidemia, generalized anxiety disorder Patient was sent to the hospital from [facility] after she was found to be confused and short of breath. The staff noticed her to have a fever and she was more lethargic; was found to have influenza A positive. The patient had progressively became lethargic which prompted them to call EMS for transfer to the hospital. On presentation to the ED, she was normotensive, afebrile and was hypoxic to 83%; patient was placed on facemask. Given altered mental status; patient was intubated and mechanically ventilated. Patient is to be admitted to ICU for further management. Allergies Allergy/AdvReac Type Severity Reaction Status Date / Time No Known Allergies Allergy Verified 05/06/24 20:04 Home Medications Medication Instructions Recorded Confirmed Type aspirin 81 mg tablet,delayed 162 mg PO 3XWK 11/15/21 05/06/24 History release atorvastatin 80 mg tablet 80 mg PO QPM 11/15/21 05/06/24 History carbidopa 25 mg-levodopa 100 mg 1 tab PO TIDM 11/15/21 05/06/24 History tablet docusate sodium 100 mg capsule 100 mg PO DAILY 11/15/21 05/06/24 History (Colace) levothyroxine 125 mcg tablet 125 mcg PO QAM 11/15/21 05/06/24 History pregabalin 100 mg capsule 100 mg PO BID 11/15/21 05/06/24 History pantoprazole 20 mg tablet,delayed 20 mg PO BID 05/23/22 05/06/24 History release epinephrine 0.3 mg/0.3 mL 0.3 mg IM DIRECTED PRN 09/05/22 05/06/24 History injection, auto-injector (EpiPen) Anaphylaxis melatonin 10 mg tablet 10 mg PO HS 09/05/22 05/06/24 History ferric citrate 210 mg iron tablet 420 mg PO WM 01/21/23 05/06/24 History (Auryxia) fluticasone furoate 200 1 inh inhalation AMHS 01/21/23 05/06/24 History mcg-vilanterol 25 mcg/dose inhalation powder (Breo Ellipta) cholecalciferol (vitamin D3) 25 25 mcg PO DAILY 10/27/23 05/06/24 History mcg (1,000 unit) capsule midodrine 5 mg tablet 5 mg PO TID 10/27/23 05/06/24 History vitamin B complex-vitamin C-folic 1 tab PO DAILY 10/27/23 05/06/24 History acid 0.8 mg tablet (Nanci-Samuel) acetaminophen 325 mg tablet 325 - 650 mg PO Q6 PRN MILD-SEVERE 05/06/24 05/06/24 History PAIN acetaminophen 500 mg tablet 500 mg PO QID 3G 05/06/24 05/06/24 History dextromethorphan-guaifenesin 10 2.5 ml PO Q4 PRN Cough 05/06/24 05/06/24 History mg-200 mg/5 mL oral liquid diclofenac sodium 1 % topical gel 2 g topical QID 05/06/24 05/06/24 History escitalopram oxalate 10 mg tablet 10 mg PO QAM 05/06/24 05/06/24 History ferric citrate 210 mg iron tablet 210 mg PO . NEEDED PRN WITH 05/06/24 05/06/24 History (Auryxia) SNACKS guaifenesin 100 mg/5 mL oral 200 mg PO Q4H PRN Cough 05/06/24 05/06/24 History liquid (Siltussin SA) ipratropium 0.5 mg-albuterol 3 mg 3 ml inhalation Q4 PRN Wheezing 05/06/24 05/06/24 History (2.5 mg base)/3 mL nebulization soln ipratropium 0.5 mg-albuterol 3 mg 3 ml inhalation TID 05/06/24 05/06/24 History (2.5 mg base)/3 mL nebulization soln lidocaine-prilocaine 2.5 %-2.5 % 1 applic topical 3XWK 05/06/24 05/06/24 History topical cream midodrine 10 mg tablet 5 mg PO 3XWK 05/06/24 05/06/24 History midodrine 5 mg tablet 5 mg PO UD 05/06/24 05/06/24 History ondansetron HCl 4 mg tablet 4 mg PO Q6H PRN Nausea And Vomiting 05/06/24 05/06/24 History sertraline 25 mg tablet 25 mg PO UD 05/06/24 05/06/24 History sertraline 50 mg tablet 50 mg PO QAM 02/20/25 02/20/25 History Past Med/Surg History Problem List (Updated 05/06/24 @ 21:58 by Background Daemon) Acute UTI (urinary tract infection) (Acute) Leukocytosis (Acute) Elevated procalcitonin (Acute) Endotracheally intubated (Acute) Elevated brain natriuretic peptide (BNP) level (Acute) Pulmonary vascular congestion (Acute) Influenza A (Acute) Elevated troponin (Acute) Acute confusion (Acute) Sepsis (Acute) Acute hypoxemic respiratory failure (Acute) Pulmonary edema (Acute) Acute respiratory failure with hypoxia RENÉ (obstructive sleep apnea) Diet-controlled type 2 diabetes mellitus Acute on chronic hypoxic respiratory failure (Acute) Chronic hypoxemic respiratory failure Noncompliance with renal dialysis Acute metabolic encephalopathy Hypotension (Acute) Confusion (Acute) Hypothyroidism Sinus bradycardia Hypotension Hemodialysis status (Acute) Anemia (Acute) LBBB (left bundle branch block) (Acute) DM type 2 (diabetes mellitus, type 2) Elevated troponin (Acute) Hypertension Toxic metabolic encephalopathy Dialysis disequilibrium syndrome (Acute) Acute on chronic respiratory failure with hypoxemia Leukocytosis LBBB (left bundle branch block) (Acute) ESRD (end stage renal disease) on dialysis (Acute) Anemia of chronic disease End-stage renal disease (ESRD) (Acute) Generalized weakness Parkinson disease Medical History (Updated 05/06/24 @ 21:58 by Background Daemon) ESRD on hemodialysis Thickened endometrium Acute ischemic stroke NSTEMI (non-ST elevated myocardial infarction) Elevated troponin I level AV fistula R arm Limb alert care status R arm History of recent hospitalization d/c 09/09/22>per medical record, pt sent to ER at [facility] following dialysis for reddened sores on her buttocks. Admitting dx was enterococcus UTI, decubitus ulcer and sacral cellulitis. Difficult intravenous access Black stools Mobility impaired pt non compliant with hx pt treatments / PT IS IN WHEELCHAIR/TOTAL ASSIST Poor short term memory [place] (hard of hearing) COPD (chronic obstructive pulmonary disease) no medications for currently History of stroke 2019- pts spouse poor historian pt denies hx stroke History of anesthesia reaction "hard time waking up" Hx: recurrent pneumonia History of COVID-19 ? early 2021- mild congestion, no hospitalization, no current issues Non-ST elevation [place] (NSTEMI) pt spouse not sure/ mild ? remembers something mentioned in hx/ ? details ESRD (end stage renal disease) on dialysis tues, thur & sat ([place]) Aspiration pneumonia HX Morbid obesity Rheumatoid arthritis ? current status/no meds for Chronic diastolic heart failure EF 50% on 01/2020 echo RACHEL (iron deficiency anemia) Subdural hematoma hx fall 2019 - tx to [facility]/no surgical intervention RENÉ on CPAP Depression Meniere's disease Generalized anxiety disorder Dyslipidemia Restless leg syndrome Diabetes mellitus, type II hx / NO MEDS HTN (hypertension) Surgical History Hx of arteriovenostomy for renal dialysis right arm History of tubal ligation History of carpal tunnel surgery B/L History of orthopedic surgery " bilat heel surgery" H/O sinus surgery Hx of total knee arthroplasty B/L Family History Other AAA (abdominal aortic aneurysm) Diabetes Family history non-contributory Hypertension Myotonic dystrophy Social History Smoking Status: Never smoker Tobacco Type: Cigarettes Cigarettes Per Day: 0.25ppd; Second Hand Exposure: No; Do You Dip or Chew Tobacco: No; Hx Alcohol Use: No Hx Substance Use: No Preferred Language: Maldivian Communication Ability: Effective Communication Ability Comment: pt sometimes has difficulty understanding things, is POA Unstacker Required: No Beliefs That Will Affect Care: None marital status: Current Living Situation: Correction Current Living Situation Comment: Lives at home with , bed bound Feels Safe at Home: Yes Assistive Devices: Mechanical Lift, Oxygen - Continuous and Wheelchair Review of Systems Review of Systems: Unobtainable due to endotracheal tube and Unobtainable due to reduced consciousness Physical Exam Physical Exam: Constitutional: Sedated, mechanically ventilated. Respiratory: Bilateral mechanical breath sound Cardiovascular: RRR, no murmur, no edema Vessels: no JVD or carotid bruit Chest: normal inspection of chest Abdomen: normal bowel sounds, Musculoskeletal: no cyanosis or clubbing, extremities motor strength 5/5 Skin: no rashes, warm and dry normal turgor Neurologic: Sedated Results & Data Results & Data Vital Signs (Past 12 Hours) Vital Signs Temp Pulse Resp BP Pulse Ox O2 Del Method O2 Flow Rate 05/06/24 21:48 62 18 87/40 L 91 05/06/24 21:40 63 18 87/40 L 91 Mechanical Vent 05/06/24 21:30 67 12 113/51 L 93 Mechanical Vent 05/06/24 21:15 63 100/49 L 99 Mechanical Vent 05/06/24 21:07 65 90/48 L 99 05/06/24 21:07 90/48 L 05/06/24 21:00 71 89/47 L 98 05/06/24 20:45 105/49 L 99 Mechanical Vent 05/06/24 20:35 77 18 99 05/06/24 20:31 98 05/06/24 20:30 84 20 165/92 H 98 05/06/24 20:00 72 20 139/57 L 96 Oxymask 6 05/06/24 19:30 79 24 135/65 97 Oxymask 6 05/06/24 18:59 92 Nasal Cannula 4 05/06/24 18:58 37.1 C 83 24 136/51 L 83 L Room Air 05/06/24 18:54 85 FiO2 05/06/24 21:48 05/06/24 21:40 05/06/24 21:30 05/06/24 21:15 05/06/24 21:07 05/06/24 21:07 05/06/24 21:00 05/06/24 20:45 05/06/24 20:35 100 05/06/24 20:31 05/06/24 20:30 05/06/24 20:00 05/06/24 19:30 05/06/24 18:59 05/06/24 18:58 05/06/24 18:54 Code Status & VTE Plan VTE Prophylaxis Plan VTE Prophylaxis will be ordered: Yes
[2024-05-06] MEDS ORDERED: ALBUT/IPRATROP 3MG/0.5MG NEB 3 ML VIAL INH PRN (22:23)
[2024-05-06] MEDS: FAMOTIDINE 20 MG TAB OG SCH (22:36)
[2024-05-06] MEDS: VANCOMYCIN HCL 2,000 MG in SODIUM CHLORIDE 0.9% 500 ML IV ONE ×3 (22:36→23:05)
[2024-05-06] MEDS: PIPERACILLIN/TAZOBACTAM 4.5 GM/100 ML BAG IV SCH (22:36)
[2024-05-06] MEDS: fentaNYL citrate 2,500 MCG/250 ML BAG IV SCH (23:01)
--- NOTE | 2024-05-07 00:14 | XRay Report ---
Exam(s): XR CXR 1 VIEW EXAM: XR Chest, 1 View CLINICAL HISTORY: Reason for exam: post inutbation. TECHNIQUE: Frontal view of the chest. COMPARISON: Prior chest x-ray from FINDINGS: There is an endotracheal tube in place approximately 13 mm above the rusty. There is an OG tube overlying the esophagus extending into the stomach with the distal tip of the range. Lungs: Moderate peribronchial thickening of the central bronchi with increased interstitial opacities throughout the lungs. No consolidation. Pleural space: Unremarkable. No pneumothorax. Heart: Moderate cardiomegaly. Mediastinum: Unremarkable. Normal mediastinal contour. Bones/joints: Unremarkable. No acute fracture. IMPRESSION: Endotracheal tube in place approximately 13 mm above the rusty. Recommend pulling the endotracheal tube back 2-3 cm. Electronically signed by: Isidra Meng MD 05/07/24 00:12 AM
[2024-05-07 00:19] LABS: iSTAT Allen Test Pass; iSTAT Art Bld Gas pCO2 Correct 38 mmHg (35-46); iSTAT Art Bld Gas pH Corrected 7.508 (7.35-7.45); iSTAT Arterial Blood Gas HCO3 30 meg/L (19-24); iSTAT Arterial Blood Gas pCO2 38 mmHg (35-46); iSTAT Arterial Blood Gas pH 7.51 (7.35-7.45); iSTAT Arterial Blood Gas pO2 83 mmHg (80-95); iSTAT Arterial Blood Gas pO2 C 82; iSTAT Carbon Dioxide 31 mmol/L (24-31); iSTAT FiO2 60 %; iSTAT Hematocrit 27 % (37-47); iSTAT Hemoglobin 9.2 g/dl (12.0-16.0); iSTAT Potassium 3.9 mmol/L (3.3-5.0); iSTAT Sample Type Arterial; iSTAT Site L Radial; iSTAT Sodium 134 mmol/L (135-144); iSTAT SpO2 96
[2024-05-07] MEDS ORDERED: STAT IV Infusion **Titration per Protocol STA (00:31)
[2024-05-07] MEDS: PIPERACILLIN/TAZOBACTAM 4.5 GM/100 ML BAG IV ONE (00:33)
[2024-05-07] MEDS: HEPARIN SOD 5,000 UNIT/0.5 ML VIAL SQ SCH (00:33)
[2024-05-07] MEDS: STAT IV Infusion **Titration per Protocol STA (00:33)
[2024-05-07] MEDS ORDERED: GLUCAGON FOR INJ 1 MG VIAL SQ PRN (00:39)
[2024-05-07] MEDS ORDERED: GLUCOSE 10 TAB/TUBE PO PRN (00:39)
[2024-05-07] MEDS ORDERED: GLUCOSE 40% GEL 15 GM TUBE PO PRN (00:39)
[2024-05-07] MEDS ORDERED: CARBOHYDRATES FOR HYPOGLYCEMIA PO PRN (00:39)
[2024-05-07] MEDS ORDERED: DEXTROSE 50% 50 ML SYRINGE IV PRN (00:39)
[2024-05-07] MEDS: ICU Protocol for HYPERglycemia SCH (00:46)
[2024-05-07] MEDS: NOREPINEPHRINE/D5W 4 MG/250 ML PLCT IV SCH (00:52)
[2024-05-07] MEDS ORDERED: Nursing to Pharmacy Communication SCH (01:00)
--- NOTE | 2024-05-07 01:05 | CT Scan Report ---
Exam(s): CT CHEST Without Contrast EXAM: CT Chest Without Intravenous Contrast CLINICAL HISTORY: Rule out LLL infiltrate. TECHNIQUE: Axial computed tomography images of the chest without intravenous contrast. CTDI is 37.33 mGy and DLP is 1023.74 mGy-cm. Automated exposure control was utilized for the study. A dose lowering technique was utilized adhering to the principles of ALARA. COMPARISON: Portable plain radiograph performed earlier; CT chest without contrast 05/23/2022 FINDINGS: Lungs: Accounting for respiratory artifact, there are subtle patchy opacities in the posterior right upper lobe, the superior and medial basal segment of the right lower lobe. Less prominent changes are noted involving the inferior aspect of the left upper lobe and the medial basal segment of the left lower lobe. These are all new from the previous examination. Pleural space: Unremarkable. No pneumothorax. No significant effusion. Heart: Similar to less prominent global cardiomegaly. Chronic coronary artery calcification. No pericardial effusion. Bones/joints: No acute osseous abnormality with stable hypertrophic marginal osteophytes throughout the thoracic spine. Soft tissues: Unremarkable. Vasculature: The thoracic aorta is normal in caliber without aneurysm. Lymph nodes: Unremarkable. No enlarged lymph nodes. Tubes, lines and devices: Nasogastric tube tip cannot be seen but is below the diaphragm. The endotracheal tube (ETT) is in satisfactory position with tip 1.5 cm above the rusty. IMPRESSION: Accounting for respiratory artifact, there are subtle patchy opacities in the posterior right upper lobe, the superior and medial basal segment of the right lower lobe. Less prominent changes are noted involving the inferior aspect of the left upper lobe and the medial basal segment of the left lower lobe. These are all new from the previous examination. Multifocal pneumonia is not excluded. Electronically signed by: Alen Rojo MD 05/07/24 01:04 AM
[2024-05-07] MEDS: INSULIN ASPART PER UNIT CHARGE SC SCH (01:17)
--- OUTSIDE RECORDS SUMMARY | 2024-05-07 03:27 | External Medical Summary | Summary of Care ---
Author Name Unknown Organization [facility] Address [address] [place] [address] Phone [phone] Care Team Providers Care Diving Coach Name Role Phone Howie Gilbert MD Primary Care Provide r Reason for Visit * Reason Onset Date Comments Multidisciplinary Documentation 04/08/2024 Encounter Details Date Type Department Care Team (Late st Contact Info) Description 04/08/2024 Telephone Care Coordination [address], [place] [id number] Debora Shabazz, Community Health Economic Consultant [address] [place] [address] Multidisciplinary Documentation Allergies No known active allergiesdocumented as of this encounter (statuses as of 04/08/2024) Medications ONETOUCH DELICA LANCETS 33G MISC Up to 4 times daily 100 Each 6 11/25/19 15 Active Glucose Blood (ONETOUCH ULTRA BLUE) STRP Use as directed 4 times a day as needed (Diabetes). Use up to four times a day as directed 100 Strip 11 02/04/20 18 Active Nebulizers (NEBULIZER COMPRESSOR) MISCIndications:CO PD, group B, by GOLD 2017 classification ([facility] [...] )Indications:COPD, group B, by GOLD 2017 classification ([facility] [...] 10:42 AM EST 11/10/19 23 Active Nystatin 456295 UNIT/GM External Powder (Nystop) Apply topically to [...] needed for hemorrhoids 57 g 3 03/13/20 Active Hydrocortisone (Perianal) 2.5 % External Cream (Procto-Med HC)Indications:Hem orrhoids, external without complications Administer into the rectum daily as needed for Hemorrhoids. 28 g 2 03/13/20 23 Active Calmoseptine 0.44-20.6 % External Ointment (Menthol-Zinc Oxide) Apply 113 g topically to affected area as needed for Hemorrhoids. Apply to buttocks Active Atorvastatin Calcium 80 MG Oral Tablet [...] by mouth in the morning. 02/11/20 Active Pregabalin 100 MG Oral Capsule (Lyrica)Indication s:Primary parkinsonism (HCC) Take 1 capsule by mouth twice daily. May take 1 extra capsule after dialysis 3 days a week 120 Capsule 02/24/20 24 Active documented as of this encounter (statuses as of 04/08/2024) Active Problems Problem Noted Date Diagnosed Date [...] as of this encounter (statuses as of 04/08/2024) Resolved Problems Problem Noted Date Diagnosed Date [...] EDT): Needs colonoscopy scheduled -[facility] Palliative care encounter 06/07/2021 Hypothyroidism 05/31/2021 05/27/2022 [...] as of this encounter (statuses as of 04/08/2024) Immunizations Name Administration Dates Next Due COVID-19 mRNA, LNP-s, No Pre serve, 2-Dose Series ([employer]) 01/02/2021,06/21/2020,05/24/2020 COVID-19, mRNA, LNP-s, PF, B ooster, [...] Miscellaneous Notes * Telephone Encounter - Debora Shabazz Community Health Economic Consultant - 04/08/2024 4:21 PM EST Call to [facility] at [phone]- spoke to Judie-pt is a currently a resident there and listed as a full code, but no feeding tube. Could not provide any documentation. Added SNF to Care team Debora Shabazz Patient Navigator documented in this encounter Plan of Treatment [...] COMPLETED IN P AST YEAR FOR COPD 06/23/2024 06/24/2023 TSH 09/21/2024 09/22/2023, 07/16, 05/31/2021, Additional history [...] Documents on File Type Date Recorded Patient Executive Account Manager Expl anation Power of Appliance Service Supervisor 12/16/2018 10:33 AM Wesley Schmitt Power of Appliance Service Supervisor - Medical Low Pg 6 - signed [...] p Communication Wesley Hassan Spouse Health Care Age nt (per Health Care Power of Appliance Service Supervisor document) Carmen Hughes Adult Child Health Care Agen t (per Health Care Power of Appliance Service Supervisor document) Jeanne Schmitt Adult Child Health Care Agen t (per Health Care Power of Appliance Service Supervisor document) Care Teams Diving Coach Relationship Specialty Start Date End Date Howie Gilbert MD [address] [place] [id number] PCP - General Family Medicine 11/14/23 documented as of this encounter
--- OUTSIDE RECORDS SUMMARY | 2024-05-07 03:27 | External Medical Summary | Summary of Care ---
Author Name Unknown Organization [facility] Address [address] [facility] [address] Phone [phone] Care Team Providers Care Phlebotomy Specialist Name Role Phone Howie Gilbert MD Primary Care Provide r Encounter Details Date Type Department Care Team (Late st Contact Info) Description 05/05/2024 Orders Only Laboratory [address] [place] [phone] Howie Gilbert MD [address] [place] [address] [place] [address] Acute cough*; SOB (shortness of breath); Rhonchi Allergies No known active allergiesdocumented as of this encounter (statuses as of 05/05/2024) Medications ONETOUCH DELICA LANCETS 33G MISC Up to 4 times daily 100 Each 6 015 Active Glucose Blood (ONETOUCH ULTRA BLUE) STRP Use as directed 4 times a day as needed (Diabetes). Use up to four times a day as directed 100 Strip 11 018 Active Nebulizers (NEBULIZER COMPRESSOR) MISCIndications:C OPD, group B, by GOLD 2017 classification ([facility]) Inhale via nebulizer. Use as [...] for Anaphylaxis (severe allergic reaction). 0.3 mL 020 Active Aspirin 81 MG Oral Tablet Delayed ReleaseIndication s:ASCVD (arteriosclerotic cardiovascular disease) Take 2 Tablets by mouth in the morning. 30 Tab 5 020 Active Meclizine HCl 12.5 MG Oral Tablet (ANTIVERT) Take 1 Tablet by mouth 3 times a day as needed. 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 60 Each 022 Active Auryxia 1 GM 210 MG(Fe) Oral Tablet TAKE 1 TABLET BY MOUTH THREE TIMES A DAY WITH MEALS. SWALLOW WHOLE, DO NOT CHEW OR CRUSH MEDICATION 023 Active Nnaci-Samuel Oral Tablet Take 1 Tablet by mouth in the morning. 023 Active Lidocaine-Priloca ine 2.5-2.5 % External Cream (Emla) APPLY SMALL AMOUNT TO ACCESS SITE (AVF) 1 TO 2 HOURS BEFORE DIALYSIS. COVER WITH OCCLUSIVE DRESSING (SARAN WRAP) 30 g 11 3 10:42 AM EST 023 Active Nystatin 388351 UNIT/GM External Powder (Nystop) Apply topically to affected area 2 times a day. 60 g 5 3 10:42 AM EST 023 Active Pantoprazole Sodium 20 MG Oral Tablet Delayed Release (Protonix) Take 1 Tablet by mouth in the morning and 1 Tablet in the evening. 180 Tablet 1 3 1:58 PM EDT 023 Active CPAP every night at bedtime. Active [...] every night at bedtime. 30 Tablet Active Carbidopa-Levodop a 25-100 MG Oral Tablet (Sinemet) Take 1 Tablet by mouth in the morning and 1 Tablet at noon and 1 Tablet before bedtime. Active Docusate Sodium 100 MG Oral Capsule (Colace)Aidentio ns:Chronic idiopathic constipation Take 1 Capsule by [...] Tablet by mouth in the morning. Active Pregabalin 100 MG Oral Capsule (Lyrica)Aidentio ns:Primary parkinsonism (HCC) Take 1 capsule by mouth twice daily. May take 1 extra capsule after dialysis 3 days a week 120 Capsule Active Midodrine HCl 5 MG Oral Tablet (Proamatine) Take 1 Tablet by mouth in the morning and 1 Tablet at noon and 1 Tablet in the evening. 024 2024 Discontinued documented as of this encounter (statuses as of 05/05/2024) Active Problems Problem Noted Date Diagnosed Date [...] as of this encounter (statuses as of 05/05/2024) Resolved Problems Problem Noted Date Diagnosed Date [...] as of this encounter (statuses as of 05/05/2024) Immunizations Name Administration Dates Next Due COVID-19 mRNA, LNP-s, No Pre serve, 2-Dose Series ([employer]) 01/02/2021,06/21/2020,05/24/2020 COVID-19, mRNA, LNP-s, PF, B ooster, [...] documented in this encounter Plan of Treatment Pending Results Name Type Priority Associated Diagnoses Date /Time INFLUENZA A/B RSV SARS-COV2,PCR Lab Routine Acute cough SOB (shortness of breath) Rhonchi 05/05/2024 1:00 PM EST Scheduled Orders Name Type Priority Associated Diagnoses Orde r Schedule INFLUENZA A/B RSV SARS-COV2,PCR Lab Routine Acute cough SOB (shortness of breath) Rhonchi Expected: 05/05/2024, Expires: 05/05/2025 Scheduled Procedures Name Priority Associated Diagnoses Date/Ti me COLONOSCOPY FLEXIBLE PROXIMA L DIAGNOSTIC Recall Encounter for screening colonoscopy Health Maintenance Due Date Last Done Comments Zoster Vaccines (2 of 3) 12/18/2011 10/23/2011 Depression Monitoring 01/22/2020 01/21/2019 Adult Wellness Visit 08/16/2021 08/16/2020 COVID-19 Vaccine ( season) 2023 01/17/2022, 07/23/2021, 01/02/2021, Additional history exists Influenza Vaccine (FLU shot) (#1) 2023 01/02/2023, 12/29/2021, 12/04/2021, Additional history exists O2 ASSESSMENT COMPLETED IN PAST YEAR FOR COPD 06/23/2024 06/24/2023 TSH 09/21/2024 09/22/2023, 07/16, 05/31/2021, Additional history exists Diabetic Foot Exam Discontinued 08/16/2020, 0 08/26/2019, 08/04/2018, Additional history exists Diabetic Eye Exam Discontinued 12/05/2021, , 03/23/2018, Additional history exists Colonoscopy Discontinued 09/20/2022, 11/15, 11/27/2015, Additional history exists Colorectal Cancer Screening Discontinued Cologuard Discontinued Fecal Occult Blood Test Discontinued Meningitis B Vaccine (Bexsero/Trumemba) Aged Out No longer eligible based on patient's age to complete this topic Sigmoidoscopy Discontinued documented as of this encounter [...] B, by GOLD 2017 classification ([facility]) Iron deficiency anemia due to [...] B, by GOLD 2017 classification ([facility]) RENÉ on CPAP Obstructive sleep [...] Rectal bleeding Hemorrhage of rectum and anus Acute cough- Primary SOB (shortness of breath) Shortness of breath Rhonchi Abnormal chest sounds documented in this encounter Advance Directives Documents on File Type Date Recorded Patient Plate Gauger Expl anation Power of Cobol Developer 12/16/2018 10:33 AM Wesley Rubin Oskar Power of Cobol Developer - Medical Low Pg 6 - signed [...] Age nt (per Health Care Power of Cobol Developer document) Carmen Hughes Adult Child Health Care Agen t (per Health Care Power of Cobol Developer document) Jeanne Schmitt Adult Child Health Care Agen t (per Health Care Power of Cobol Developer document) Care Teams Phlebotomy Specialist Relationship Specialty Start Date End Date Howie Gilbert MD [address] [place] [address] [place] [phone] PCP - General Family Medicine 11/14/23 documented as of this encounter
--- OUTSIDE RECORDS SUMMARY | 2024-05-07 03:27 | External Medical Summary | Summary of Care ---
Author Name Unknown Organization [facility] Address [address] [facility] [place] [address] Phone [phone] Care Team Providers Care Frozen Pie Maker Name Role Phone Howie Gilbert MD Primary Care Provide r Reason for Visit * Reason Comments Outpatient Testing Encounter Details Date Type Department Care Team (Late st Contact Info) Description 05/05/2024 1:30 PM EST Laboratory Laboratory [address] [place] [phone] , Specimen Drop Off [address] [place] [address] Acute cough; SOB (shortness of breath); Rhonchi Allergies No [...] OPD, group B, by GOLD 2017 classification ([facility]) Inhale via nebulizer. Use as directed. 1 Each 1 019 Active Melatonin 10 MG Tablet Take 1 Tablet by mouth every night at bedtime. Active acetaminophen (TYLENOL) 325 MG Tablet Take 2 Tabs by mouth every 6 hours as needed for Pain. 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 60 Each 022 Active Auryxia 1 GM 210 MG(Fe) Oral Tablet TAKE 1 TABLET BY MOUTH THREE TIMES A DAY WITH MEALS. SWALLOW WHOLE, DO NOT CHEW OR CRUSH MEDICATION 023 Active Nanci-Samuel Oral Tablet Take 1 Tablet by mouth in the morning. 023 Active Lidocaine-Priloca ine 2.5-2.5 % External Cream (Emla) APPLY SMALL AMOUNT TO ACCESS SITE (AVF) 1 TO 2 HOURS BEFORE DIALYSIS. COVER WITH OCCLUSIVE DRESSING (SARAN WRAP) 30 g 11 3 10:42 AM EST 023 Active Nystatin 771382 UNIT/GM External Powder (Nystop) Apply topically to [...] Active Docusate Sodium 100 MG Oral Capsule (Colace)Marcella ns:Chronic idiopathic constipation Take 1 Capsule by [...] morning. Active Pregabalin 100 MG Oral Capsule (Lyrica)Marcella ns:Primary parkinsonism (HCC) Take 1 capsule by mouth twice daily. May take 1 extra capsule after dialysis 3 days a week 120 Capsule Active Midodrine HCl 5 MG Oral Tablet (Proamatine) Take 1 Tablet by mouth in the morning and 1 Tablet at noon and 1 Tablet in the evening. 2024 Discontinued documented as of this encounter [...] G/DL -- 9.7* Medication Regimen: o Beta Tnaner Therapy: Other: none o HARESH Inhibitor/ARB Therapy: [...] (08/09/2022 11:02 AM EDT): Needs colonoscopy scheduled -[facility] Palliative care encounter 06/07/2021 Hypothyroidism 05/31/2021 [...] mRNA, LNP-s, No Pre serve, 2-Dose Series ([employer]) 01/02/2021,06/21/2020,05/24/2020 COVID-19, mRNA, LNP-s, PF, B ooster, 100mcg/0.5mg (Moderna) 07/23/2021 Covid-19, Mrna, Lnp-s, Pf, B ivalent, 50 Mcg, IM, 12 yrs and above (Moderna) 01/17/2022 Diptheria/Tetanus (Adult) 12/06/1998 Pneumococcal Conjugate Vacc, 13 Valent (Prevnar) 10/28/2014 Pneumococcal Polysaccharide PPV23 (Pneumovax) 03/22/2016,12/04/2009 Seasonal Influenza Vac., MDV , IM, 0.5 mL (Fluzone) 11/22/2013,12/25/2012,12/24/2011,12/04,12/08/2008,12/25/2007,01/19/2007 ,01/21/2006,01/08/2005,12/30/2002,12/16,02/17/2001,02/15/2000, 9 Seasonal Influenza, PF, 6 M & above, [...] breath) Rhonchi 05/05/2024 1:00 PM EST Scheduled Procedures Name Priority Associated [...] COPD, group B, by GOLD 2017 classification ([facility]) Iron deficiency anemia due to chronic blood loss Iron deficiency anemia secondary to blood loss (chronic) Primary parkinsonism ([facility]) Paralysis agitans Major depressive disorder, recurrent episode, moderate (HCC) Major depressive disorder, recurrent episode, moderate Fatigue, unspecified type- Primary AVF (arteriovenous fistula) ([facility]) Arteriovenous fistula, acquired Chronic heart failure with [...] bleeding Hemorrhage of rectum and anus Acute cough SOB (shortness of breath) Shortness of breath Rhonchi Abnormal chest sounds documented in this encounter Advance Directives Documents on File Type Date Recorded Patient Adult Family Home Program Manager Expl anation Power of Slag Skimmer 12/16/2018 10:33 AM Wesley Schmitt Power of Slag Skimmer - Medical Low Pg 6 - signed [...] Age nt (per Health Care Power of Slag Skimmer document) Carmen Hughes Adult Child Health Care Agen t (per Health Care Power of Slag Skimmer document) Jeanne Schmitt Adult Child Health Care Agen t (per Health Care Power of Slag Skimmer document) Care Teams Frozen Pie Maker Relationship Specialty Start Date End Date Howie Gilbert MD [address] [place], [place] [address] [id number] PCP - General Family Medicine 11/14/23 documented as of this encounter
--- OUTSIDE RECORDS SUMMARY | 2024-05-07 03:27 | External Medical Summary ---
Author Name Unknown Address Unknown Organization [id number]:[facility] [place] [address] [facility] [id number] Laboratory Report Ordering Provider Test Date Status SIRISHA PRESCOTT 05/05/2024 13:00:00 Final Observation Date Value Abnormality Reference (Units ) Status SARS Coronavirus 2 05/05/2024 13:00:00 Negative N egative Final No SARS-CoV2 Coronavirus RNA detected by PCR (amplified probe).
This automated test was developed and its performance characteristics determined by [facility]. It has not been cleared or approved [...] SARS-CoV-2 diagnosis, surveillance, and travel within the [place] and to most countries. Please check with local testing authorities about requirements before travel.

The validation of bronchial specimens, tracheal aspirates, and sputum for this assay was developed and performance characteristics determined by [facility]. The validation of alternate specimen types has not been cleared or approved by the U.S. Food and Drug Administration (FDA). It has been determined that such clearance or approval is not necessary. Influenza virus A RNA [Prese nce] in Specimen by [facility] with probe detection 05/05/2024 13:00:00 Positive Abnormal Negative Final Influenza A RNA detected by PCR (amplified probe). Test results reported to [facility]. Influenza virus B RNA [Prese nce] in Specimen by [facility]IMAS with probe detection 05/05/2024 13:00:00 Negative Negative Final No Influenza B RNA detected by PCR (amplified probe) Respiratory syncytial virus RNA [Identifier] in Specimen by [facility] with probe detection 05/05/2024 13:00:00 Negative Negative Final No Respiratory Syncytial Vir us RNA detected by PCR (amplified probe) Performing Location [facility] [place] [facility] [address]. [facility] [address]
--- OUTSIDE RECORDS SUMMARY | 2024-05-07 03:27 | External Medical Summary | Summary of Care ---
Author Name Unknown Organization [facility] Address [address] [place] [address] Phone [phone] Care Team Providers Care Developer Analyst Name Role Phone Howie Gilbert MD Primary Care Provide r Encounter Details Date Type Department Care Team (Late st Contact Info) Description 04/05/2024 Population Health External Data Unspecified Department Allergies No known active allergiesdocumented as of this encounter (statuses as of 04/05/2024) Medications ONETOUCH DELICA LANCETS 33G MISC Up to 4 times daily 100 Each 6 11/25/19 15 Active Glucose Blood (ONETOUCH ULTRA BLUE) STRP Use as directed 4 times a day as needed (Diabetes). Use up to four times a day as directed 100 Strip 11 02/04/20 18 Active Nebulizers (NEBULIZER COMPRESSOR) MISCIndications:CO PD, group B, by GOLD 2017 classification ([facility]) Inhale via nebulizer. Use as directed. [...] )Indications:COPD, group B, by GOLD 2017 classification ([facility] [...] 10:42 AM EST 11/10/19 23 Active Nystatin 426129 UNIT/GM External Powder (Nystop) Apply topically to [...] 3 days a week 120 Capsule 02/24/20 Active documented as of this encounter (statuses as of 04/05/2024) Active Problems Problem Noted Date Diagnosed Date [...] as of this encounter (statuses as of 04/05/2024) Resolved Problems Problem Noted Date Diagnosed Date [...] (08/09/2022 11:02 AM EDT): Needs colonoscopy scheduled -[facility] Palliative care encounter 06/07/2021 Hypothyroidism [...] falls on the pl SDH (subdural hematoma) 04/20/201907/162020 Overview (08/05/2019): acute Ecchymosis 04/20/2019 09/08/2020 Old [...] as of this encounter (statuses as of 04/05/2024) Immunizations Name Administration Dates Next Due COVID-19 mRNA, LNP-s, No Pre serve, 2-Dose Series ([facility]) 01/02/2021,06/21/2020,05/24/2020 COVID-19, mRNA, LNP-s, PF, B ooster, [...] of Assessment Author No 03/09/2023 3:55 AM EST Ana, E haily, RN * Do you have serious difficulty [...] Documents on File Type Date Recorded Patient Religious Activities Director Expl anation Power of Stitcher Utility 12/16/2018 10:33 AM Wesley Solitarioadrienne Lorin Schmitt Power of Stitcher Utility - Medical Low Pg 6 - signed [...] Age nt (per Health Care Power of Stitcher Utility document) Carmen Hughes Adult Child Health Care Agen t (per Health Care Power of Stitcher Utility document) Jeanne Schmitt Adult Child Health Care Agen t (per Health Care Power of Stitcher Utility document) Care Teams Developer Analyst Relationship Specialty Start Date End Date Howie Gilbert MD [address] [facility] [place] [address] PCP - General Family Medicine 11/14/23 documented as of this encounter
--- OUTSIDE RECORDS SUMMARY | 2024-05-07 03:27 | External Medical Summary | Summary of Care ---
Author Name Unknown Organization [facility] Address [address] [place] [address] Phone [phone] Care Team Providers Care Gluer And Slicer Hand Name Role Phone Howie Gilbert MD Primary Care Provide r Reason for Visit * Reason Onset Date Comments [facility]fp Visit 05/05/2024 Regulatory Encounter Details Date Type Department Care Team (Latest Contact Info) Description 05/05/2024 8:30 AM EST [facility] Visit [facility] at [address] [place] [address] Howie Gilbert MD [address] [place] [address] [place] [id number] Acute cough*; COPD, group B, by GOLD 2017 classification ([facility]); Primary parkinsonism (HCC); 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); 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HCC); ESRD (end stage renal disease) on dialysis (HCC); Moderate episode of recurrent major depressive disorder (HCC); AYSHA (generalized anxiety disorder); Chronic heart failure with preserved ejection fraction (HCC); Anemia in end-stage renal disease (HCC); Morbid (severe) obesity due to excess calories (HCC); Orthostatic hypotension Allergies No known active allergiesdocumented as of this encounter (statuses as of 05/05/2024) Medications ABHISHEK DELIRVIN LANCETS 33G MISC Up to 4 times daily 100 Each 6 015 Active Glucose Blood (ONETOUCH ULTRA BLUE) STRP Use as directed 4 times a day as needed (Diabetes). Use up to four times a day as directed 100 Strip 11 018 Active Nebulizers (NEBULIZER COMPRESSOR) MISCIndications:C OPD, group B, by GOLD 2017 classification ([facility] [...] Inhalation Aerosol Powder Breath Activated (fluticasone furoate-vilantero l)Indications:RADIOGRAPHER TECHNOLOGIST D, group B, by GOLD 2017 classification [...] 30 g 11 3 10:42 AM EST Active Nystatin 661244 UNIT/GM External Powder (Nystop) Apply topically to affected area 2 times a day. 60 g 5 3 10:42 AM EST Active Pantoprazole Sodium 20 MG Oral Tablet [...] morning. Active Pregabalin 100 MG Oral Capsule (Lyrica)Indicatio ns:Primary parkinsonism (HCC) Take 1 capsule by mouth twice daily. May take 1 extra capsule after dialysis 3 days a week 120 Capsule Active Midodrine HCl 5 MG Oral Tablet (Proamatine) Take 1 Tablet by mouth in the morning and 1 Tablet at noon and 1 Tablet in the evening. Take an additional tablet MWF at dialysis. Active Midodrine HCl 5 MG Oral Tablet [...] (08/09/2022 11:02 AM EDT): Needs colonoscopy scheduled -[facility] Palliative care encounter 06/07/2021 Hypothyroidism 05/31/2021 [...] on file Legal Sex Female 5:14 AM EDENILSON Gender Identity Not on file Sexual Orientation [...] Progress Notes * Howie Gilbert MD - 05/05/2024 1:44 PM EST Regulatory Visit TRANSITION EVENT: Type: Regulatory visit Date: May 05 Code Status: Full Code Name: Kami Hassan Date of : 1945 This note pertains to care provided at [facility]. Please see facility medical record for original note. This note is not to be edited or addended in [employer]. Editing or addending needs to occur in [...] chronic diastolic (congestive) heart failure (HCC) 03/04/2020 [facility] Allergic rhinitis 02/15/2000 acute BMI 38.0-38.9,adult 08/28/2009 Chronic Sinusitis Unspecified Controlled substance agreement signed 11/25/2016 COVID-19 10/23/2021 Cystitis 05/23/2022 admitted [facility] home on cefuroxime Dyslipidemia, goal [...] diabetes mellitus with autonomic dysfunction ([facility]) Past Surgical History: Procedure Laterality Date ARTHROPLASTY KNEE TOTAL Left Dr. Del Real CARPAL TUNNEL SURGERY Bilateral COLONOSCOPY, DIAGNOSTIC (RECTUM) 11/27/2015 normal, repeat 10 yrs/COLONOSCOPY FLEXIBLE PROXIMAL DIAGNOSTIC performed by Garrett Chang MD at ENDOSCOPY [facility] COLONOSCOPY, DIAGNOSTIC (RECTUM) 09/20/2022 serrated polyp, fair prep / [facility] EGD, FLEXIBLE, DIAGNOSTIC 04/19/2022 esophagitis, repeat 8-12 wks / [facility] EGD, FLEXIBLE, DIAGNOSTIC 06/26/2022 normal, retained food / [facility] EGD, FLEXIBLE, DIAGNOSTIC N/A 01/24/2023 normal/EGD/[facility] EXPLORATION OF MAXILLARY SINUS 03/17/1995 Sinus Surgery HYSTEROSCOPY,DIAGNOSTIC 2022 atrophic endometrium, endometrial polyp INJECTION LUMBAR/SACRAL 07/31/2015 INJECTION SPINE LUMBAR OR SACRAL performed by Quincy Jenni Prado DO at OR [facility] INJECTION LUMBAR/SACRAL 08/15/2015 INJECTION SPINE LUMBAR OR SACRAL performed by Quincy Prado DO at OR [facility] INSER MARLI CAT,W/O PUMP;5YR/OLD N/A 11/04/2019 INSERT TUNNELED CENTRAL VENOUS CATHETER AGE 6 OR OLDER performed by Ortega Montez DO at OR [facility] INSER MARLI CAT,W/O PUMP;5YR/OLD Right 03/09/2023 INSERT TUNNELED CENTRAL VENOUS CATHETER AGE 5 OR OLDER performed by Fred Brown MD at OR [facility] INTRO CATH DIALYSIS CIRCUIT W/TRANSLUM BALLOON ANGIOPLASTY Right 03/09/2023 AV FISTULOGRAM & PERIPHERAL ANGIOPLASTY performed by Fred Brown MD at OR [facility] LIGATE/CUT OVIDUCT(S) MISCELLANEOUS ORDER ([facility] ONLY) Bilateral [...] Social History Narrative Merged History 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 Current problems include cough starting today. Patient seen right after returning from her dialysis session. She denies shortness of breath, chest pain, fever, chills, or congestion. Staff report she did have cough and wheezing received a nebulizer prior to goingto dialysis. Patient does have h/o COPD. Is having pain issues. Pain being treated with diclofenac gel. Is not having behavioral problems. Noted today that patient is on both sertraline 100 mg and Escitalopram 10 mg daily. Patient's sertraline had been reduced to 50 mg at recommendation of cardiology due to recurrent bradycardia and hypotension. She had increasing depression after the dose reduction so her sertraline was discontinued on 02/11/24 and she was begun on Escitalopram 10 mg daily. Appears that she was admitted to [facility] in early February and was discharged back on her prior dose of sertraline 100 mg daily. Results for orders placed or performed in visit on 02/18/24 CBC WITH WBC DIFFERENTIAL Result Value Ref Range HGB 11.2 (A) 12.0 - 16.0 GM/DL COMPREHENSIVE METABOLIC PANEL Result Value Ref Range CREATININE 5.41 (A) 0.55 - 1.02 MG/DL EGFR 8 (A) >=60 ML/MIN POTASSIUM 3.5 3.5 - 5.1 MMOL/L GLUCOSE 138 (A) 70 - 110 MG/DL ALT-OUTSIDE LAB 11 (A) 13 - 56 IU/L *Note: Due to a large number of results and/or encounters for the requested time period, some results have not been displayed. A complete set of results can be found in Results Review. CBC Results: Results for orders placed or [...] MPV 11.3 6.6 - 11.1 fL Hemoglobin AIC Results: Lab Results Component Value Date/Time HEMOGLOBIN A1C - [facility] 5.4 09/22/2023 05:43 AM HEMOGLOBIN A1C - [facility] 4.9 03/09/2023 06:04 AM HEMOGLOBIN A1C - [facility] 5.3 05/31/2021 03:04 PM HEMOGLOBIN A1C - [facility] 5.1 03/23/2019 04:45 PM HEMOGLOBIN A1C - [facility] 4.9 05/01/2018 02:07 PM HEMOGLOBIN A1C - [facility] 5.3 10/13/2017 01:44 PM ROS: CONSTITUTIONAL: No change in weight, No [...] No thrush, or No sore throat PULMONARY: +cough, wheezing, and rhonchi today CARDIOVASCULAR: No chest pain, No orthopnea, No paroxysmal nocturnal dyspnea, No palpitations, and No syncope GASTROINTESTINAL: No abdominal pain, No change in bowel habits, No significant heartburn, No significant change in appetite, No hematemesis, No blood in stools or black tarry stools, and No abdominalbloating or early satiety FEMALE: No dysuria, No frequency, and +dialysis EXTREMITIES: +OA SKIN/INTEGUMENTARY: No rash and No itching NEUROLOGIC: +Parkinson's disease with dementia PSYCHIATRIC: +depression and anxiety O: I reviewed the most recent facilities vitals. General: alert, no distress, well nourished, well developed, obese, and chronically ill appearing, +wet-sounding cough Head: Normocephalic, No masses, lesions, tenderness or abnormalities Neuro: alert & oriented x 3 with slow speech Eye Exam: PERRLA, extraocular movements intact, conjunctiva are pink and non- injected, sclera clear Ears: External ears normal Nose: no mucosal erythema, no mucosal edema, no purulent discharge Oropharynx: no exudate, no erythema, lips, buccal mucosa, and tongue normal, and mucous membranes are moist Neck: supple, no adenopathy, no bruits Heart: regular rate & rhythm, no gallops, and distant heart tones Lungs: chest symmetric with normal AP diameter, no chest deformities noted, no chest wall tenderness, decreased breath sounds, scattered rhonchi bilaterally Abdomen: abdomen soft, non-tender, normal bowel sounds, and no masses or organomegaly Extremities: no edema, no clubbing, no cyanosis A: Acute cough (Primary)--check respiratory PCR for influenza/COVID/RSV. Check chest x-ray to r/o pneumonia. Continue Duoneb PRN and add Robitussin PRN. May need to add steroids pending course. Cough just started today. COPD, group B, by GOLD 2017 classification ([facility])--continue Breo and Duonebs. Primary parkinsonism ([facility])--continue Sinemet. Diabetes mellitus with ESRD (end-stage renal disease) ([facility])--not currently on anti-diabetic medication. A1C has been normal. On dialysis MWF. 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[facility])--stable. No behavior issues. ESRD (end stage renal disease) on dialysis ([facility])--compliant with dialysis. Moderate episode of recurrent major depressive disorder ([facility])--continue Escitalopram 10 mg daily. Will taper sertraline to 50 mg x 1 week, then 25 mg x 1 week and then D/C. Restarted on discharge from hospital in February as a "continued medication." Cardiology recommend no higher than 50 mg due to bradycardia and hypotension but patient had worse depression on lower dose so she was changed to Lexapro instead. AYSHA (generalized anxiety disorder)--as above. Continue Lexapro 10 mg daily and wean off sertraline. Chronic heart failure with preserved ejection fraction ([facility])--continue dialysis to manage volume status. Anemia in end-stage renal disease ([facility])--continue Auryxia and Nanci-jazmine per nephrology. Morbid (severe) obesity due to excess calories ([facility])--weight stable. Orthostatic hypotension--continue midodrine. P: Medications reviewed. Please refer to MAR in the facility's medical record for the most up-to-date medication list. Continue present medication(s):, Begin medication(s): Robitussin PRN cough, Discontinue medication(s): sertraline, and Schedule labs: Resp PCR for COVID/Influenza/RSV Reviewed prison record for: vital signs, weight, bowel, and bladder function, and ADLs. Labs reviewed Continue current treatment plan as ordered Continue to follow up as needed and as scheduled Longterm Home Treatment Given: Respiratory Treatment (simple mask, non rebreather) Duonebs Electronically signed by: Howie Gilbert MD I [...] COPD, group B, by GOLD 2017 classification ([facility]) Iron deficiency anemia due to chronic blood [...] group B, by GOLD 2017 classification (HCC) ERNÉ on CPAP Obstructive sleep apnea (adult) (pediatric) [...] of rectum and anus Acute cough- Primary COPD, group B, by GOLD 2017 classification (HCC) Primary parkinsonism (HCC) Paralysis agitans Diabetes mellitus with ESRD (end-stage renal disease) ([facility]) Type II or unspecified type diabetes mellitus with renal manifestations, not stated as uncontrolled 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HCC) ESRD (end stage renal disease) on dialysis (HCC) End stage renal disease Moderate episode of recurrent major depressive disorder (HCC) AYSHA (generalized anxiety disorder) Generalized anxiety disorder Chronic heart failure with preserved ejection fraction (HCC) Anemia in end-stage renal disease (HCC) Anemia in chronic kidney disease Morbid (severe) obesity due to excess calories (HCC) Orthostatic hypotension documented in this encounter Advance Directives Documents on File Type Date Recorded 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
--- OUTSIDE RECORDS SUMMARY | 2024-05-07 03:27 | External Medical Summary | Summary of Care ---
Author Name Unknown Organization [facility] Address [address] [facility] [place] [address] Phone [phone] Care Team Providers Care Nailer Operator Name Role Phone Howie Gilbert MD Primary Care Provide r Reason for Visit * Reason Comments Outpatient Testing Encounter Details Date Type Department Care Team (Late st Contact Info) Description 05/05/2024 1:30 PM EST Laboratory Laboratory [address] [place] [address] , Specimen Drop Off [address] [place] [address] Acute cough; SOB [...] OPD, group B, by GOLD 2017 classification ([facility] [...] Inhalation Aerosol Powder Breath Activated (fluticasone furoate-vilantero l)Indications:BAILIFF D, group B, by GOLD 2017 classification [...] 3 10:42 AM EST 023 Active Nystatin 396022 UNIT/GM External Powder (Nystop) Apply topically to [...] (08/09/2022 11:02 AM EDT): Needs colonoscopy scheduled -[facility] Palliative care encounter 06/07/2021 Hypothyroidism [...] mRNA, LNP-s, No Pre serve, 2-Dose Series ([employer]) 01/02/2021,06/21/2020,05/24/2020 COVID-19, mRNA, LNP-s, PF, B ooster, [...] GOLD 2017 classification ([facility]) Iron deficiency anemia due to chronic blood loss Iron deficiency anemia secondary to blood loss (chronic) Primary parkinsonism ([facility]) Paralysis agitans Major depressive disorder, recurrent episode, moderate (HCC) Major depressive disorder, recurrent episode, moderate Fatigue, unspecified type- Primary AVF (arteriovenous fistula) ([facility]) Arteriovenous fistula, acquired Chronic heart failure with [...] Documents on File Type Date Recorded 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
--- OUTSIDE RECORDS SUMMARY | 2024-05-07 03:27 | External Medical Summary | Summary of Care ---
Author Name Unknown Organization [facility] Address [address] [facility] [address] Phone [phone] Care Team Providers Care Survey Cad Technician Name Role Phone Howie Gilbert MD Primary Care Provide r Reason for Visit * Reason Onset Date Comments [facility]: Screening 05/04/2024 Encounter Details Date Type Department Care Team (Late st Contact Info) Description 05/04/2024 Telephone [facility] [address] [place] [address] Briseida Batista, RADIATION OFFICER [address] [facility] [place] [address] [facility]: Screening Allergies No known active allergiesdocumented as of this encounter (statuses as of 05/04/2024) Medications ONETOUCH DELICA LANCETS 33G MISC Up to 4 times daily 100 Each 6 11/25/19 15 Active Glucose Blood (ONETOUCH ULTRA BLUE) STRP Use as directed 4 times a day as needed (Diabetes). Use up to four times a day as directed 100 Strip 11 02/04/20 18 Active Nebulizers (NEBULIZER COMPRESSOR) MISCIndications:CO PD, group B, by GOLD 2017 classification ([facility] [...] )Indications:COPD, group B, by GOLD 2017 classification ([facility] [...] 10:42 AM EST 11/10/19 23 Active Nystatin 196792 UNIT/GM External Powder (Nystop) Apply topically to [...] needed for Hemorrhoids. 28 g 2 03/13/20 Active Calmoseptine 0.44-20.6 % External Ointment (Menthol-Zinc [...] as of this encounter (statuses as of 05/04/2024) Active Problems Problem Noted Date Diagnosed Date [...] as of this encounter (statuses as of 05/04/2024) Resolved Problems Problem Noted Date Diagnosed Date [...] (08/09/2022 11:02 AM EDT): Needs colonoscopy scheduled -[facility] Palliative care encounter 06/07/2021 Hypothyroidism [...] as of this encounter (statuses as of 05/04/2024) Immunizations Name Administration Dates Next Due COVID-19 mRNA, LNP-s, No Pre serve, 2-Dose Series ([employer]) 01/02/2021,06/21/2020,05/24/2020 COVID-19, mRNA, LNP-s, PF, B ooster, [...] Telephone Encounter - Briseida Batista LPN - 05/04/2024 9:56 AM EST Kami Hassan was referred as a potential candidate for enrollment for [facility]. A review of this chart was completed and: Kami does not meet criteria for enrollment into [facility]. 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 Power of Inventory Associate And Driver 12/16/2018 10:33 AM Wesley Blanday Power of Inventory Associate And Driver - Medical Low Pg 6 - signed [...] Age nt (per Health Care Power of Inventory Associate And Driver document) Carmen uHghes Adult Child Health Care Agen t (per Health Care Power of Inventory Associate And Driver document) Jeanne Schmitt Adult Child Health Care Agen t (per Health Care Power of Inventory Associate And Driver document) Care Teams Survey Cad Technician Relationship Specialty Start Date End Date Howie Gilbert MD [address] [place] [phone] PCP - General Family Medicine 11/14/23 documented as of this encounter
--- OUTSIDE RECORDS SUMMARY | 2024-05-07 03:28 | External Medical Summary | Summary of Care ---
Author Name Unknown Organization [facility] [address] [facility] [address] Phone [phone] Care Team Providers Care Rn Faculty Name Role Phone Howie Gilbert MD Primary Care Provide r Encounter Details Date Type Department Care Team (Late st Contact Info) Description 03/03/2024 Population Health External Data Unspecified Department Allergies No known active allergiesdocumented as of this encounter (statuses as of 03/03/2024) Medications ONETOUCH DELICA LANCETS 33G MISC Up [...] )Indications:COPD, group B, by GOLD 2017 classification (HCC) [...] 10:42 AM EST 11/10/19 23 Active Nystatin 194890 UNIT/GM External Powder (Nystop) Apply topically to [...] as of this encounter (statuses as of 03/03/2024) Active Problems Problem Noted Date Diagnosed Date [...] as of this encounter (statuses as of 03/03/2024) Resolved Problems Problem Noted Date Diagnosed Date [...] (08/09/2022 11:02 AM EDT): Needs colonoscopy scheduled -[facility] Palliative care encounter 06/07/2021 Hypothyroidism 05/31/2021 [...] as of this encounter (statuses as of 03/03/2024) Immunizations Name Administration Dates Next Due COVID-19 mRNA, LNP-s, No Pre serve, 2-Dose Series ([employer]) 01/02/2021,06/21/2020,05/24/2020 COVID-19, mRNA, LNP-s, PF, B ooster, [...] of Assessment Author Yes 03/09/2023 3:55 AM EST Ana, E haily, RN * Do you have difficulty dressing [...] Documents on File Type Date Recorded Patient Product Architect Expl anation Power of Enroute Controller 12/16/2018 10:33 AM Wesley Schmitt Power of Enroute Controller - Medical Low Pg 6 - signed [...] Age nt (per Health Care Power of Enroute Controller document) Carmen Hughes Adult Child Health Care Agen t (per Health Care Power of Enroute Controller document) Jeanne Schmitt Adult Child Health Care Agen t (per Health Care Power of Enroute Controller document) Care Teams Rn Faculty Relationship Specialty Start Date End Date Howie Gilbert MD [address] [place] [phone] PCP - General Family Medicine 11/14/23 documented as of this encounter
--- OUTSIDE RECORDS SUMMARY | 2024-05-07 03:28 | External Medical Summary | Summary of Care ---
Author Name Unknown Organization [facility] Address [address] [place] [address] Phone [phone] Care Team Providers Care Junior Sales Assistant Name Role Phone Howie Gilbert MD Primary Care Provide r Reason for Visit * Reason Onset Date Comments Skilled Visit 02/26/2024 Encounter Details Date Type Department Care Team (Latest Contact Info) Description 02/26/2024 1:30 PM EST Fpc Visit [facility] [address] [place] [address] Nae Rodriges PA-C [address] [place] [address] Metabolic encephalopathy*; ESRD (end stage renal disease) on dialysis (HCC); 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 Use up to four times a day as directed 100 Strip 11 02/04/20 18 Active Nebulizers (NEBULIZER COMPRESSOR) MISCIndications:CO PD, group B, by GOLD 2017 classification ([facility] [...] 10:42 AM EST 11/10/19 23 Active Nystatin 873530 UNIT/GM External Powder (Nystop) Apply topically to [...] as of this encounter (statuses as of 02/26/2024) Active Problems Problem Noted Date Diagnosed Date [...] as of this encounter (statuses as of 02/26/2024) Resolved Problems Problem Noted Date Diagnosed Date Resolved Date Problem with dialysis access 03/09/2023 03/18/2023 UTI (urinary tract infection) 03/09/2023 03/19/2023 Serrated polyp of colon 09/20/202204/17 Overview (10/03/2022): 7 mm descending colon BMI 38.0-38.9,adult 09/12/2022 03/19/19 24 Overview (09/12/2022): 210 Major depressive disorder, r ecurrent episode, moderate 08/09/2022 08/09/2022 Assessment & Plan (06/17/2022 1:54 PM EDT): Stable on sertraline Rectal bleeding 08/09/2022 01/29/2023 Assessment & Plan (08/09/2022 11:02 AM EDT): Needs [facility]oscopy scheduled -[facility] Palliative care encounter 06/07/2021 Hypothyroidism 05/31/2021 [...] as of this encounter (statuses as of 02/26/2024) Immunizations Name Administration Dates Next Due COVID-19 mRNA, LNP-s, No Pre serve, 2-Dose Series (ThinkLink) 01/02/2021,06/21/2020,05/24/2020 COVID-19, mRNA, LNP-s, PF, B ooster, [...] Entry Date Author No 03/09/2023 3:55 AM Rsoa Alfaro RN documented in this encounter Progress Notes * Nae Rodrgies PA-C - 02/26/2024 3:35 PM EST Name: Kami Hassan Date of :1945 TRANSITION EVENT: Type: Skilled visit Date: February 25 Code Status: Full Code This note pertains to care provided at [facility]. Please see facility medical record for original note. This note is not to be edited or addended in [employer]. Editing or addending needs to occur in the facilities medical record. Subjective: Kami Hassan is a 78 year old female. Patient being seen for skilled visit Chief Complaint Patient presents with Skilled Visit HPI: pt was admitted to [facility] from dialysis center this past week due to increased confusion, lethargy and noncompliance with dialsys. Diagnosed with metabolic encephalopathy. Pt was uncooperative at [facility] to treatment so she was discharged back to SNF. She is at her baseline in mentation today. Vital signs stable. Eating and sleeping ok. She did testpositive for depression on screening. She does feel sad over her having to undergo cancer treatments and her not being able to be home for this holidays. No suicidal thoughts or plans. She was begun on Lexapro daily. Labs done at dialysis center Patient Active Problem List Diagnosis Meniere's disease, [...] 2017 classification ([facility]) Chronic heart failure with preserved ejection fraction (HCC) Iron deficiency anemia due to chronic blood loss Diabetes mellitus with ESRD (end-stage renal disease) ([facility]) Personal history of fall History of CVA (cerebrovascular accident) AVF (arteriovenous fistula) ([facility]) 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HCC) Acquired hypothyroidism ESRD (end stage renal disease) on dialysis (HCC) 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) Morbid (severe) obesity due to excess calories ([facility]) Full code status History of colon polyps Sinus bradycardia Orthostatic hypotension History of 2018 novel coronavirus disease (COVID-19) Current moderate episode of major depressive disorder (HCC) Past Medical History: Diagnosis Date (HFpEF) heart failure with preserved ejection fraction (HCC) Acute on chronic diastolic (congestive) heart failure (HCC) 03/04/2020 [facility] Allergic rhinitis 02/15/2000 acute BMI 38.0-38.9,adult 08/28/2009 Chronic Sinusitis Unspecified Controlled substance agreement signed 11/25/2016 COVID-19 10/23/2021 Cystitis 05/23/2022 admitted [facility] home on cefuroxime Dyslipidemia, goal [...] (HCC) 07/18/2016 SDH (subdural hematoma) ([facility]) 04/20/2019 acute Serrated polyp of colon 09/20/2022 7 mm descending colon Sleep apnea Tinnitus 01/2005 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 Del Real CARPAL TUNNEL SURGERY Bilateral COLONOSCOPY, DIAGNOSTIC (RECTUM) 11/27/2015 normal, repeat 10 yrs/COLONOSCOPY FLEXIBLE PROXIMAL DIAGNOSTIC performed by Garrett Chang MD at ENDOSCOPY [facility] COLONOSCOPY, DIAGNOSTIC (RECTUM) 09/20/2022 serrated polyp, fair prep / [facility] EGD, FLEXIBLE, DIAGNOSTIC 04/19/2022 esophagitis, repeat 8-12 wks / [facility] EGD, FLEXIBLE, DIAGNOSTIC 06/26/2022 normal, retained food / [facility] EGD, FLEXIBLE, DIAGNOSTIC N/A 01/24/2023 normal/EGD/VA EXPLORATION OF MAXILLARY SINUS 03/17/1995 Sinus Surgery HYSTEROSCOPY,DIAGNOSTIC 2022 atrophic endometrium, endometrial polyp INJECTION LUMBAR/SACRAL 07/31/2015 INJECTION SPINE LUMBAR OR SACRAL performed by Quincy Jenni Prado DO at OR [facility] INJECTION LUMBAR/SACRAL 08/15/2015 INJECTION SPINE LUMBAR OR SACRAL performed by Quincy Prado DO at OR [facility] MARLI CAT,W/O PUMP;5YR/OLD N/A 11/04/2019 INSERT TUNNELED CENTRAL VENOUS CATHETER AGE 6 OR OLDER performed by Ortega Montez DO at OR [facility] MARLI CAT,W/O PUMP;5YR/OLD Right 03/09/2023 INSERT TUNNELED CENTRAL VENOUS CATHETER AGE 6 OR OLDER performed by Fred Brown MD at OR [facility] INTRO CATH DIALYSIS CIRCUIT W/TRANSLUM BALLOON ANGIOPLASTY Right 03/09/2023 AV FISTULOGRAM & PERIPHERAL ANGIOPLASTY performed by Fred Brown MD at OR [facility] LIGATE/CUT OVIDUCT(S) MISCELLANEOUS ORDER (HSHS [...] Social History Narrative Merged History 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 Review of Systems:obtained from pt and staff [...] No dysphagia Musculoskeletal/Extremities ROS: RA Skin/Integumentary ROS: No rash and No itching Neurologic ROS: No headaches and No seizures Psychiatric ROS: +depression, No anxiety and No psychosis + dementia Sleep: +RENÉ OBJECTIVE: PHYSICALEXAM: I reviewed the most recent facilities vitals. Pt is sitting doing knitting when I went to assess her General: alert, no distress, well nourished and well developed,smiling, conversant with me Eye Exam: Conjunctiva are pink and non-injected, [...] tenderness, lungs clear to auscultation Abdomen: abdomen soft,obese, non-tender, normal bowel sounds and no masses or organomegaly Extremities: no edema, no clubbing, no cyanosis Neuro Exam: alert & oriented x 2 with fluent speech, PD tremors and rigidity Skin: skin color, texture, turgor are normal, no rashes or significant lesions ASSESSMENT: Metabolic encephalopathy (Primary) Seems back to her baseline mood and mentation Continue present medications and dosages. Will follow ESRD (end stage renal disease) on dialysis (HCC) Continue with dialysis three days weekly Hypothyroidism due to acquired atrophy of thyroid Continue Levoxyl at current dose Chronic heart failure with preserved ejection fraction (HCC) Stable no active CHF Continue to monitor Moderate episode of recurrent major depressive disorder (HCC) Stable mood currently Continue Lexapro as directed PLAN: Continue present medication(s):as ordered. Care Home Home Treatment Given: as above Electronically signed by: Nae Rodriges PA-C Over 35 minutes were spent in this visit more than half the time was spent counselling or coordinating care. Cosigned by Howie Gilbert MD at 02/26/2024 3:55 PM EST documented in this encounter Plan of Treatment [...] 2017 classification ([facility]) Iron deficiency anemia due to [...] 2017 classification ([facility]) RENÉ on CPAP Obstructive sleep [...] Rectal bleeding Hemorrhage of rectum and anus Metabolic encephalopathy- Primary ESRD (end stage renal disease) on dialysis (HCC) End stage renal disease Hypothyroidism due to acquired atrophy of thyroid Chronic heart failure with preserved ejection fraction ([facility]) Moderate episode of recurrent major depressive disorder ([facility]) documented in this encounter Advance Directives Documents on File Type Date Recorded Patient Fish Hatchery Inspector Expl anation Power of Refined Syrup Operator 12/16/2018 10:33 AM Wesley Rubin Turner Power of Refined Syrup Operator - Medical Low Pg 6 - signed [...] Age nt (per Health Care Power of Refined Syrup Operator document) Carmen Hughes Adult Child Health Care Agen t (per Health Care Power of Refined Syrup Operator document) Jeanne Schmitt Adult Child Health Care Agen t (per Health Care Power of Refined Syrup Operator document) Care Teams Junior Sales Assistant Relationship Specialty Start Date End Date Howie Gilbert MD [address] [place] [address] [place] [id number] PCP - General Family Medicine 11/14/23 documented as of this encounter
--- OUTSIDE RECORDS SUMMARY | 2024-05-07 03:28 | External Medical Summary | Summary of Care ---
Author Name Unknown Organization [facility] Address [address] [place] [address] Phone [phone] Care Team Providers Care Machine Featheredger And Reducer Name Role Phone Howie Gilbert MD Primary Care Provide r Reason for Visit * Reason Onset Date Comments Encounter Created in Error 03/24/2024 Encounter Details Date Type Department Care Team (Latest Contact Info) Description 03/24/2024 8:30 AM EST Correction Visit [facility] at [address] [place] [address] Howie Gilbert MD [address] [place] [address] [place] [id number] Encounter created in error Allergies No known active allergiesdocumented as of this encounter (statuses as of 03/24/2024) Medications ONETOUCH DELICA LANCETS 33G MISC Up [...] 10:42 AM EST 11/10/19 23 Active Nystatin 308977 UNIT/GM External Powder (Nystop) Apply topically to [...] as of this encounter (statuses as of 03/24/2024) Active Problems Problem Noted Date Diagnosed Date [...] as of this encounter (statuses as of 03/24/2024) Resolved Problems Problem Noted Date Diagnosed Date [...] (08/09/2022 11:02 AM EDT): Needs colonoscopy scheduled -[facility] Palliative care encounter 06/07/2021 Hypothyroidism [...] the pl SDH (subdural hematoma) 04/20/[address]92 03/2019 Overview (08/05/2019): acute Ecchymosis 04/20/2019 09/08/2020 [...] as of this encounter (statuses as of 03/24/2024) Immunizations Name Administration Dates Next Due COVID-19 mRNA, LNP-s, No Pre serve, 2-Dose Series ([employer]) 01/02/2021,06/21/2020,05/24/2020 COVID-19, mRNA, LNP-s, PF, B ooster, [...] in this encounter Progress Notes * Nae Rodriges PA-C - 03/24/2024 3:12 PM EST This encounter was created in error. 03/24/2024, 3:12 PM, Nae Rodriges PA-C documented in this [...] Rectal bleeding Hemorrhage of rectum and anus Encounter Created In Error- Primary documented in this encounter Advance Directives Documents on File Type Date Recorded Patient Auto Emissions Technician Expl anation Power of Him Specialist 12/16/2018 10:33 AM Wesley Schmitt Power of Him Specialist - Medical Low Pg 6 - signed [...] Age nt (per Health Care Power of Him Specialist document) Carmen Hughes Adult Child Health Care Agen t (per Health Care Power of Him Specialist document) Jeanne Schmitt Adult Child Health Care Agen t (per Health Care Power of Him Specialist document) Care Teams Machine Featheredger And Reducer Relationship Specialty Start Date End Date Howie Gilbert MD [address] [place] [address] [place] [address] PCP - General Family Medicine 11/14/23 documented as of this encounter
--- OUTSIDE RECORDS SUMMARY | 2024-05-07 03:28 | External Medical Summary | Summary of Care ---
Author Name Unknown Organization [facility] Address [address] [place] [address] Phone [phone] Care Team Providers Care Processing Mgr Name Role Phone Howie Gilbert MD Primary Care Provide r Reason for Visit * Reason Onset Date Comments Medication Refill 02/24/2024 Encounter Details Date Type Department Care Team (Late st Contact Info) Description 02/24/[address] [facility] [address] [place] [address] Nae Rodriges PA-C [address] [place] [address] Primary parkinsonism (HCC) Allergies No known active allergiesdocumented as of this encounter (statuses as of 02/24/2024) Medications ONETOUCH DELICA LANCETS 33G MISC Up [...] 30 g 11 3 10:42 AM EST 11/10/19 23 Active Nystatin 674601 UNIT/GM External Powder (Nystop) Apply topically to affected area 2 times a day. 60 g 5 3 10:42 AM EST 11/10/19 23 Active Pantoprazole Sodium 20 MG Oral Tablet Delayed Release (Protonix) Take 1 Tablet by mouth in the morning and 1 Tablet in the evening. 180 Tablet 1 3 1:58 PM EDT 11/28/19 23 Active CPAP [...] Tablet by mouth in the morning. 02/11/20 24 Active Pregabalin 100 MG Oral Capsule (Lyrica)Indication s:Primary parkinsonism (HCC) Take 1 capsule by mouth twice daily. May take 1 extra capsule after dialysis 3 days a week 120 Capsule 02/24/20 24 Active Pregabalin 100 MG Oral Capsule (Lyrica)Indication s:Primary parkinsonism (HCC) Take 1 capsule by mouth twice daily. May take 1 extra capsule after dialysis 3 days a week 6 Capsule 02/24/20 24 024 Discontin ued(Refil l) documented as of this encounter (statuses as of 02/24/2024) Active Problems Problem Noted Date Diagnosed Date [...] as of this encounter (statuses as of 02/24/2024) Resolved Problems Problem Noted Date Diagnosed Date [...] (08/09/2022 11:02 AM EDT): Needs colonoscopy scheduled -[facility] Palliative care encounter 06/07/2021 Hypothyroidism 05/31/2021 [...] as of this encounter (statuses as of 02/24/2024) Immunizations Name Administration Dates Next Due COVID-19 mRNA, LNP-s, No Pre serve, 2-Dose Series (Level[employer]ven) 01/02/2021,06/21/2020,05/24/2020 COVID-19, mRNA, LNP-s, PF, B ooster, [...] encounter Miscellaneous Notes * Telephone Encounter - Nae Rodriges PA-C - 02/24/2024 10:17 PM EST RX LYRICA 100MG BID #120 RO SENT ELECTRONICALLY TO [facility] documented in this encounter Plan of Treatment [...] classification ([facility]) Iron deficiency anemia due to chronic [...] classification ([facility]) RENÉ on CPAP Obstructive sleep apnea [...] Rectal bleeding Hemorrhage of rectum and anus Primary parkinsonism (HCC) Paralysis agitans documented in this encounter Advance Directives Documents on File Type Date Recorded Patient Real Estate Office Supervisor Expl anation Power of Bucket Pusher 12/16/2018 10:33 AM Wesley Schmitt Power of Bucket Pusher - Medical Low Pg 6 - signed [...] Age nt (per Health Care Power of Bucket Pusher document) Carmen Hughes Adult Child Health Care Agen t (per Health Care Power of Bucket Pusher document) Jeanne Schmitt Adult Child Health Care Agen t (per Health Care Power of Bucket Pusher document) Care Teams Processing Mgr Relationship Specialty Start Date End Date Howie Gilbert MD [address] [facility] [place] [address] PCP - General Family Medicine 11/14/23 documented as of this encounter
--- OUTSIDE RECORDS SUMMARY | 2024-05-07 03:28 | External Medical Summary | Summary of Care ---
Author Name Unknown Organization [facility] Address [address] [place] [address] Phone [phone] Care Team Providers Care Infantry Weapons Crewmember Name Role Phone Howie Gilbert MD Primary Care Provide r Encounter Details Date Type Department Care Team (Late st Contact Info) Description 11/21/2023 Telephone Nephrology, [facility] [address] [place] [address] Erica Tobar MD [address] [place] [address] Allergies No known active allergiesdocumented as of [...] OPD, group B, by GOLD 2017 classification ([facility] [...] Inhalation Aerosol Powder Breath Activated (fluticasone furoate-vilantero l)Indications:RF DESIGN ENGINEER D, group B, by GOLD 2017 classification [...] 3 10:42 AM EST 023 Active Nystatin 907977 UNIT/GM External Powder (Nystop) Apply topically to [...] Active Docusate Sodium 100 MG Oral Capsule (Colace)Carloso ns:Chronic idiopathic constipation Take 1 Capsule by [...] evening and 1 Tablet before bedtime. Active DIURETIC TITRATION PLANIndications:C hronic heart failure with preserved ejection fraction (HCC) If no improvement on day 3, contact heart failure managing provider. 1 Each 019 2023 Discontinued DIURETIC TITRATION PLAN If no improvement on day 3, contact heart failure managing provider. 2023 Discontinued Sertraline HCl 100 MG Oral Tablet (Zoloft) Take 1 Tablet by mouth in the morning. 024 2023 Discontinued documented as of this encounter [...] (08/09/2022 11:02 AM EDT): Needs colonoscopy scheduled -[facility] Palliative care encounter 06/07/2021 Hypothyroidism [...] mRNA, LNP-s, No Pre serve, 2-Dose Series ([employer]) 01/02/2021,06/21/2020,05/24/2020 COVID-19, mRNA, LNP-s, PF, B ooster, [...] Telephone Encounter - Erica Tobar MD - 11/21/2023 10:21 AM EDT Contacted by dialysis outpatient that wishes me to call him to discuss [facility]. Pt admitted for a few days mid month with symptomatic bradycardia; pt sent to ER 11/13 after syncopal episode after HD, occurring in waiting room after tx. Pt had 800 mL NS and had regained baseline MS by time EMS arrived; evaluation recommended though in ER as SBP still low. D/w card painter on 11/13 and again today >> about once weekly pt BP drops at end of tx, at times to 70s systolic as it did on 11/13, and she will transiently have diminished ability to respond. Suspect multifactorial >> gaining LBW and component of well known bradycardia. -upped TW to 101 -increased midodrine dose to 10 mg on dialysis mornings else continue 5 mg tid dose Did review last cardiology note in [facility] and see that lowering sertraline dose recommended from 100 mg dose; no particular cardiology f/u recommended. melania worried b/c his father during HD treatment at [facility] Will contact [facility] team w/ suggestion for lower sertraline dosing and update them on changes above documented in this encounter Plan of [...] group B, by GOLD 2017 classification (HCC) Iron deficiency anemia due to chronic [...] bleeding Hemorrhage of rectum and anus ESRD (end stage renal disease) on dialysis (HCC)- Primary End stage renal disease Bradycardia Other specified cardiac dysrhythmias PVC (premature ventricular contraction) Other premature beats documented in this encounter Advance Directives Documents on File Type Date Recorded Patient Multi Operation Machine Operator Expl anation Power of Senior Boiler Operator 12/16/2018 10:33 AM Wesley Schmitt Power of Senior Boiler Operator - Medical Low Pg 6 - [...] Age nt (per Health Care Power of Senior Boiler Operator document) Carmen Spencer Adult Child Health Care Agen t (per Health Care Power of Senior Boiler Operator document) Jeanne Schmitt Adult Child Health Care Agen t (per Health Care Power of Senior Boiler Operator document) Care Teams Infantry Weapons Crewmember Relationship Specialty Start Date End Date Howie Gilbert MD [address] [place] [id number] PCP - General Family Medicine 11/14/23 documented as of this encounter
--- OUTSIDE RECORDS SUMMARY | 2024-05-07 03:28 | External Medical Summary | Summary of Care ---
Author Name Unknown Organization [facility] Address [address] [place] [address] Phone [phone] Care Team Providers Care Artificial Flowers Supervisor Name Role Phone Howie Gilbert MD Primary Care Provide r Encounter Details Date Type Department Care Team (Late st Contact Info) Description 03/29/2024 Orders Only Outcomes Research Department [address] [place] [address] Meg Barbosa CHRA [employer] [facility] Other*[id number] Allergies No known active allergiesdocumented as of this encounter (statuses as of 03/29/2024) Medications ONETOUCH DELICA LANCETS 33G MISC Up [...] as needed for Pain. 30 Tab 04/27/19 Active EPINEPHrine, Anaphylaxis, 1 MG/ML SOLN Inject [...] )Indications:COPD, group B, by GOLD 2017 classification ([facility] [...] 10:42 AM EST 11/10/19 23 Active Nystatin 915041 UNIT/GM External Powder (Nystop) Apply topically to [...] as of this encounter (statuses as of 03/29/2024) Active Problems Problem Noted Date Diagnosed Date [...] as of this encounter (statuses as of 03/29/2024) Resolved Problems Problem Noted Date Diagnosed Date [...] (08/09/2022 11:02 AM EDT): Needs colonoscopy scheduled -[facility] Palliative care encounter 06/07/2021 Hypothyroidism [...] as of this encounter (statuses as of 03/29/2024) Immunizations Name Administration Dates Next Due COVID-19 mRNA, LNP-s, No Pre serve, 2-Dose Series ([employer]) 01/02/2021,06/21/2020,05/24/2020 COVID-19, mRNA, LNP-s, PF, B ooster, [...] Assessment Author No 03/09/2023 3:55 AM Rosa Alfaro, RN * Are you blind or do [...] in this encounter Plan of Treatment Scheduled Orders Name Type Priority Associated Diagnoses Orde r Schedule MYCODE SUBSEQUENT ADULT Lab Routine [facility] Other*[id number] Every 6 Months for 2 Occurrences starting 03/29/2024 until 04/18/2025 Scheduled Procedures Name Priority Associated Diagnoses Date/Ti [...] FOR COPD 06/23/2024 06/24/2023 TSH 09/21/2024 09/22/2023, 05/2 09/2022, 05/31/2021, Additional history exists Diabetic Foot Exam [...] Rectal bleeding Hemorrhage of rectum and anus [employer] Other*[id number] documented in this encounter Advance Directives Documents on File Type Date Recorded Patient Platform Loader Expl anation Power of Inspector Balance Truing 12/16/2018 10:33 AM Wesley Schmitt Power of Inspector Balance Truing - Medical Low Pg 6 - signed [...] Communication Wesley Lee Sonya Spouse Health Care Age nt (per Health Care Power of Inspector Balance Truing document) Carmen Bellingham Adult Child Health Care Agen t (per Health Care Power of Inspector Balance Truing document) Jeanne Schmitt Adult Child Health Care Agen t (per Health Care Power of Inspector Balance Truing document) Care Teams Artificial Flowers Supervisor Relationship Specialty Start Date End Date Howie Gilbert MD [address] [place] [address] [place] [address] PCP - General Family Medicine 11/14/23 documented as of this encounter
--- OUTSIDE RECORDS SUMMARY | 2024-05-07 03:28 | External Medical Summary | Summary of Care ---
Author Name Unknown Organization [facility] Address [address] [place] [address] Phone [phone] Care Team Providers Care Recruiting Operations Consultant Name Role Phone Howie [place] MD Primary Care Provide r Reason for Visit * Reason Onset Date Comments Medication Refill 02/24/2024 Encounter Details Date Type Department Care Team (Late st Contact Info) Description 02/24/2024 Refill [facility] at [facility] [address] [place] [address] Nae Rodriges PA-C [address] [place] [address] Primary parkinsonism (HCC) Allergies No known active [...] PD, group B, by GOLD 2017 classification ([facility] [...] )Indications:COPD, group B, by GOLD 2017 classification ([facility] [...] 10:42 AM EST 11/10/19 23 Active Nystatin 131236 UNIT/GM External Powder (Nystop) Apply topically to [...] before bedtime. Apply to left shoulder. 11/04/19 24 Active Vitamin D 25 MCG (1000 UT) [...] 1 Tablet before bedtime. 11/11/19 24 Active Escitalopram Oxalate 10 MG Oral Tablet (Lexapro) Take 1 Tablet by mouth in the morning. 02/11/20 24 Active Pregabalin 100 MG Oral Capsule (Lyrica)Indication s:Primary parkinsonism (HCC) Take 1 capsule by mouth twice daily. May take 1 extra capsule after dialysis 3 days a week 72 Capsule 5 08/13/19 24 024 Discontin ued(Refil l) Pregabalin 100 MG Oral Capsule (Lyrica)Indication s:Primary [...] (08/09/2022 11:02 AM EDT): Needs colonoscopy scheduled -[facility] Palliative care encounter 06/07/2021 Hypothyroidism 05/31/2021 [...] mRNA, LNP-s, No Pre serve, 2-Dose Series ([employer]) 01/02/2021,06/21/2020,05/24/2020 COVID-19, mRNA, LNP-s, PF, B ooster, [...] Encounter - Nae Rodriges PA-C - 02/24/2024 10:15 PM EST RX LYRICA 100MG BID #60 RO SENT ELECTRONICALLY TO [facility] documented in this encounter Plan [...] classification ([facility]) Iron deficiency anemia due to chronic blood [...] classification ([facility]) RENÉ on CPAP Obstructive sleep apnea (adult) [...] Documents on File Type Date Recorded 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 Expl anation Power of Senior Receptionist 12/16/2018 10:33 AM Wesley Schmitt Power of Senior Receptionist - Medical Low Pg 6 - signed [...] nt (per Health Care Power of Senior Receptionist document) Carmen Hughes Adult Child Health Care Agen t (per Health Care Power of Senior Receptionist document) Jeanne Schmitt Adult Child Health Care Agen t (per Health Care Power of Senior Receptionist document) Care Teams Recruiting Operations Consultant Relationship Specialty Start Date End Date Howie [place] MD [address] [place] [address] [place] [id number] PCP - General Family Medicine 11/14/23 documented as of this encounter
--- OUTSIDE RECORDS SUMMARY | 2024-05-07 03:28 | External Medical Summary | Summary of Care ---
Author Name Unknown Organization [facility] Address [address] [place] [address] Phone [phone] Care Team Providers Care Neonatal Specialist Name Role Phone Howie [place] MD Primary Care Provide r Reason for Visit * Reason Onset Date Comments Skilled Visit 02/24/2024 Encounter Details Date Type Department Care Team (Latest Contact Info) Description 02/24/2024 10:30 AM EST Fpc Visit [facility] [address] [place] [address] Nae Rodriges PA-C [address] [place] [address] Metabolic encephalopathy*; ESRD (end stage renal disease) on dialysis (HCC); 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HCC); Noncompliance of patient with renal dialysis (HCC) Allergies No known active allergiesdocumented [...] PD, group B, by GOLD 2017 classification ([facility]) Inhale via nebulizer. Use as directed. 1 [...] )Indications:COPD, group B, by GOLD 2017 classification ([facility] [...] 10:42 AM EST 11/10/19 23 Active Nystatin 536437 UNIT/GM External Powder (Nystop) Apply topically to [...] Capsule by mouth in the morning. 11/04/19 24 Active Levothyroxine Sodium 125 MCG Oral [...] Tablet by mouth in the morning. 11/04/19 24 Active Ondansetron HCl 4 MG Oral Tablet [...] mouth in the morning. 02/11/20 24 Active documented as of this encounter [...] EDT): Needs colonoscopy scheduled -[facility] Palliative care encounter 06/07/2021 Hypothyroidism 05/31/2021 [...] mRNA, LNP-s, No Pre serve, 2-Dose Series ([employer]) 01/02/2021,06/21/2020,05/24/2020 COVID-19, mRNA, LNP-s, PF, B ooster, [...] FOR COPD 03/09/2024 03/09/2023 TSH 09/21/2024 09/22/2023, 0509/2022, 05/31/2021, Additional history exists Diabetic Foot Exam [...] by GOLD 2017 classification ([facility]) Iron deficiency anemia due to chronic blood [...] by GOLD 2017 classification ([facility]) RENÉ on CPAP Obstructive sleep apnea (adult) [...] disease 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HCC) Noncompliance of patient with renal dialysis (HCC) Noncompliance with renal dialysis documented in this encounter Advance Directives Documents on File Type Date Recorded Patient Bi Data Modeler Expl anation Power of Tests Superintendent 12/16/2018 10:33 AM Wesley Schmitt Power of Tests Superintendent - Medical Low Pg 6 - signed [...] Age nt (per Health Care Power of Tests Superintendent document) Carmen Hughes Adult Child Health Care Agen t (per Health Care Power of Tests Superintendent document) Jeanne Schmitt Adult Child Health Care Agen t (per Health Care Power of Tests Superintendent document) Care Teams Neonatal Specialist Relationship Specialty Start Date End Date Howie [place] MD [address] [place], [place] [address] [id number] PCP - General Family Medicine 11/14/23 documented as of this encounter
--- OUTSIDE RECORDS SUMMARY | 2024-05-07 03:29 | External Medical Summary | Summary of Care ---
Author Name Unknown Organization [facility] Address [address] [place] [address] Phone [phone] Care Team Providers Care Chief Of Harbor Patrol Name Role Phone Howie [place] MD Primary Care Provide r Reason for Visit * Reason Onset Date Comments Skilled Nursing Visit - Readmission 02/20/2024 Encounter Details Date Type Department Care Team (Latest Contact Info) Description 02/20/2024 12:00 PM EST Skilled Nursing Visit [facility] [address] [place] [address] Nae Rodriges PA-C [address] [place] [address] Acute metabolic encephalopathy*; ESRD (end stage renal disease) on dialysis ([facility]); Acute on chronic respiratory failure with hypoxia ([facility]); Noncompliance with renal dialysis ([facility]); 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[facility]); Hypothyroidism due to acquired atrophy of thyroid; 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 factor ([facility]); RENÉ on CPAP Allergies No known active [...] 10:42 AM EST 11/10/19 23 Active Nystatin 632572 UNIT/GM External Powder (Nystop) Apply topically to affected area 2 times a day. 60 g 5 02/13/2023 10:42 AM EST 11/10/19 23 Active Pantoprazole Sodium 20 MG Oral Tablet Delayed Release (Protonix) Take 1 Tablet by mouth in the morning and 1 Tablet in the evening. 180 Tablet 1 11/27/2022 1:58 PM EDT 11/28/19 Active CPAP every night at bedtime. Active [...] 6 hours as needed for Nausea. 11/04/19 24 Active Acetaminophen 500 MG Oral Tablet (Tylenol) [...] (08/09/2022 11:02 AM EDT): Needs colonoscopy scheduled -[facility] Palliative care encounter 06/07/2021 Hypothyroidism 05/31/2021 05/27/2022 [...] mRNA, LNP-s, No Pre serve, 2-Dose Series ([employer]) 01/02/2021,06/21/2020,05/24/2020 COVID-19, mRNA, LNP-s, PF, B ooster, [...] of Assessment Author No 03/09/2023 3:55 AM Roas Alfaro RN * Do you have serious [...] Entry Date Author No 03/09/2023 3:55 AM Demetri Alfaro RN documented in this encounter Progress Notes * Nae Rodriges PA-C - 02/20/2024 3:45 PM EST Images from the original note were not included. READMISSION NOTE TRANSITION EVENT: Type: Readmission to SNF from Hospital Date: February 19 Code Status: Full Code Subjective: Kami Hassan is a 78 year old female. Date of : 1945 Chief Complaint Patient presents with Skilled Nursing Visit - Readmission This note pertains to care provided at [facility]. Please see facility medical record for original note. This note is not to be edited or addended in [employer]. Editing or addending needs to occur in the facilities medical record. S: Kami Hassan has been readmitted to [facility] from [facility] for ferry terminal agent care. Pt who is LTC resident at [facility] with history of ESRD on dialysis, significant dementia with PD, RENÉ on CPAP (noncompliant), chronic respiratory failure (noncompliant with O2), HTN, AYSHA, HLD, hypothyroidism, anemia , obesity was transported to [facility] ED via ambulance from dialysis center on 02/17/24 due to increasing confusion, volume overload (pt has been noncompliant with dialysis). Pt was assessed in SNF the day before for above concerns raised by dialysis center. Labs were drawn and CXR done in SNF showed NAD. CBC Results: Results for orders placed or [...] K/uL MPV 11.3 6.6 - 11.1 fL COMPREHENSIVE METABOLIC PANEL Order: [id number] Status: Final result Visible to patient: No (inaccessible in MyChart) Next appt: None 0 Result Notes Component Ref Range & Units 4 d ago CREATININE 0.55 - 1.02 MG/DL 5.41 Abnormal EGFR >=60 ML/MIN 8 Abnormal POTASSIUM 3.5 - 5.1 MMOL/L 3.5 GLUCOSE 70 - 110 MG/DL 138 Abnormal ALT-OUTSIDE LAB 13 - 56 IU/L 11 Abnormal Resulting Agency OUTSIDE LAB (SEE SCANNED REPORT) Specimen Collected: 02/16/24 Last Resulted: 02/18/24 10:11 In the ED: T: 36.6 C. HR: 60 RR: 15 BP: 96/54mmHg. O2 saturation 98% on 4 L/min CBC: WBC: 10.32. H/H: 10.8 and 33.7. PLT: 170,000. Creatinine: 4.29. BUN: 28. GFR: 10.11. Glucose: 141mg%. Lytes, LFT's, Respiratory biofire normal. CXR showed cardiomegaly with interstitial pulmonary edema and small bilateral pleural effusions. Right lower airspace opacity likely alveloar pulmonary edema vs superimposed pneumonia. EKG : SR with frequent PVCs no acute changes. CT scan brain showed 1.8 cm hypodense focus within the periventricular left frontal lobe which involved the mota radiata and possibly the left caudate nucleus. Could reflect age indeterminate infarct or small vessel disease. No acute intracranial abnormalities. Pt underwent dialysis, her volume status stabilized. Pt repeatedly was noncomplant with lab draws and O2 and oral care to the point that care was very difficult to provide at hospital. Pt is now readmitted back to [facility] on 02/20/24 for LTC. Readmitted for: ferry terminal agent care Past Medical History: Patient Active Problem List Diagnosis Meniere's disease, [...] chronic diastolic (congestive) heart failure (HCC) 03/04/2020 [facility] Allergic rhinitis 02/15/2000 acute BMI 38.0-38.9,adult 08/28/2009 Chronic Sinusitis Unspecified Controlled substance agreement signed 11/25/2016 COVID-19 10/23/2021 Cystitis 05/23/2022 admitted [facility] home on cefuroxime Dyslipidemia, goal LDL [...] (HCC) 07/18/2016 SDH (subdural hematoma) ([facility]) 04/20/2019 acute Serrated polyp of colon 09/20/2022 7 mm descending colon Sleep apnea Tinnitus 01/2005 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 ([facility]) Past Surgical History: Procedure Laterality Date ARTHROPLASTY KNEE TOTAL Left Dr. Del Real CARPAL TUNNEL SURGERY Bilateral COLONOSCOPY, DIAGNOSTIC (RECTUM) 11/27/2015 normal, repeat 10 yrs/COLONOSCOPY FLEXIBLE PROXIMAL DIAGNOSTIC performed by Garrett Chang MD at ENDOSCOPY [facility] COLONOSCOPY, DIAGNOSTIC (RECTUM) 09/20/2022 serrated polyp, fair prep / [facility] EGD, FLEXIBLE, DIAGNOSTIC 04/19/2022 esophagitis, repeat 8-12 wks / [facility] EGD, FLEXIBLE, DIAGNOSTIC 06/26/2022 normal, retained food / [facility] EGD, FLEXIBLE, DIAGNOSTIC N/A 01/24/2023 normal/EGD/[facility] EXPLORATION OF MAXILLARY SINUS 03/17/1995 Sinus Surgery HYSTEROSCOPY,DIAGNOSTIC 2022 atrophic endometrium, endometrial polyp INJECTION LUMBAR/SACRAL 07/31/2015 INJECTION SPINE LUMBAR OR SACRAL performed by Quincy Prado DO at OR [facility] INJECTION LUMBAR/SACRAL 08/15/2015 INJECTION SPINE LUMBAR OR SACRAL performed by Quincy Prado DO at OR [facility] INSER MARLI CAT,W/O PUMP;5YR/OLD N/A 11/04/2019 INSERT TUNNELED CENTRAL VENOUS CATHETER AGE 6 OR OLDER performed by Ortega Montez DO at OR [facility] INSER MARLI CAT,W/O PUMP;5YR/OLD Right 03/09/2023 INSERT TUNNELED CENTRAL VENOUS CATHETER AGE 5 OR OLDER performed by Fred Brown MD at OR [facility] INTRO CATH DIALYSIS CIRCUIT W/TRANSLUM BALLOON ANGIOPLASTY Right 03/09/2023 AV FISTULOGRAM & PERIPHERAL ANGIOPLASTY performed by Fred Brown MD at OR [facility] LIGATE/CUT OVIDUCT(S) MISCELLANEOUS ORDER ([facility] ONLY) Bilateral [...] Social History Narrative Merged History 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 Refer to vital signs flowsheet in fdc chart. General: alert, no distress, well nourished [...] trachea midline Lymph: no palpable lymphadenopathy Heart: irreg rhythm, no murmurs and no gallops Lungs: normal respiratory rate and rhythm, no chest wall tenderness, lungs clear to auscultation Abdomen: abdomen soft, obese, non-tender, normal bowel sounds and no masses or organomegaly Extremities: no edema, no clubbing, no cyanosis Neuro Exam: alert & oriented x 1 with fluent speech, no focal motor/sensory deficits Skin: skin color, texture, turgor are normal, no rashes or significant lesions ASSESSMENT: Acute metabolic encephalopathy (Primary) Reviewed [facility] notes Pt back to baseline in mentation Continue with current Rx ESRD (end stage renal disease) on dialysis (HCC) Contnue with dialysis as directed Acute on chronic respiratory failure with hypoxia (HCC) Stable breathing Pt is noncompliant with O2 Noncompliance with renal dialysis (HCC) Will continue to encourage pt to comply with dialysis 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HCC) Stable PD and dementia at this time Continue with lexapro and Sinemet as directed Hypothyroidism due to acquired atrophy of thyroid Stable Continue Levoxyl daily 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 Continue present medication(s): 2. Admission orders, medications, labs, hospital records and care plan reviewed. 3. Continue current treatment plan as ordered. 4. Care plan reviewed. 5. Advanced Directives were discussed: Full Code 6. Residential Home Treatment Given: as above Total time spent 50 minutes with over half time spent reviewing [facility] notes, labs, xrays and planning of care documented in this [...] by GOLD 2017 classification ([facility]) Iron deficiency anemia due to chronic blood [...] bleeding Hemorrhage of rectum and anus Acute metabolic encephalopathy- Primary ESRD (end stage renal disease) on dialysis (HCC) End stage renal disease Acute on chronic respiratory failure with hypoxia (HCC) Noncompliance with renal dialysis (HCC) Noncompliance with renal dialysis 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HCC) Hypothyroidism due to acquired atrophy of thyroid 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 factor (HCC) RENÉ on CPAP Obstructive sleep apnea (adult) (pediatric) documented in this encounter Advance Directives Documents on File Type Date Recorded Patient Cotton Tier Expl anation Power of Arch Cushion Skiving Machine Operator 12/16/2018 10:33 AM Wesley Schmitt Power of Arch Cushion Skiving Machine Operator - Medical Low Pg 6 - [...] Age nt (per Health Care Power of Arch Cushion Skiving Machine Operator document) Carmen Rodríguezland Adult Child Health Care Agen t (per Health Care Power of Arch Cushion Skiving Machine Operator document) Jeanne Schmitt Adult Child Health Care Agen t (per Health Care Power of Arch Cushion Skiving Machine Operator document) Care Teams Chief Of Harbor Patrol Relationship Specialty Start Date End Date Howie [place] MD [address] [place] [id number] PCP - General Family Medicine 11/14/23 documented as of this encounter
--- OUTSIDE RECORDS SUMMARY | 2024-05-07 03:29 | External Medical Summary | Summary of Care ---
Author Name Unknown Organization [facility] Address [address] [place] [address] Phone [phone] Care Team Providers Care Financial Manager Name Role Phone Howie [place] MD Primary Care Provide r Reason for Visit * Reason Onset Date Comments Encounter Created in Error 02/20/2024 Encounter Details Date Type Department Care Team (Late st Contact Info) Description 02/20/2024 Telephone [facility] Medicine [address] [facility] [place] [address] Erica Tobar MD [address] [place] [address] Encounter Created in Error Allergies No known active allergiesdocumented as of [...] 10:42 AM EST 11/10/19 23 Active Nystatin 309567 UNIT/GM External Powder (Nystop) Apply topically to [...] (08/09/2022 11:02 AM EDT): Needs colonoscopy scheduled -[facility] Palliative care encounter 06/07/2021 Hypothyroidism 05/31/2021 [...] mRNA, LNP-s, No Pre serve, 2-Dose Series ([employer]) 01/02/2021,06/21/2020,05/24/2020 COVID-19, mRNA, LNP-s, PF, B ooster, [...] Documents on File Type Date Recorded 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 Instructor Expl anation Power of Sex Offender Treatment Professional 12/16/2018 10:33 AM Wesley Schmitt Power of Sex Offender Treatment Professional - Medical Low Pg 6 - signed [...] Age nt (per Health Care Power of Sex Offender Treatment Professional document) Carmen Hughes Adult Child Health Care Agen t (per Health Care Power of Sex Offender Treatment Professional document) Jeanne Schmitt Adult Child Health Care Agen t (per Health Care Power of Sex Offender Treatment Professional document) Care Teams Financial Manager Relationship Specialty Start Date End Date Howie [place] MD [address] [place], [place] [address] [id number] PCP - General Family Medicine 11/14/23 documented as of this encounter
[2024-05-07] MEDS: PIPERACILLIN/TAZOBACTAM 4.5 GM/100 ML BAG IV SCH (05:11)
[2024-05-07 05:15] LABS: Basophils # (auto) 0.03 K/uL (0.00-0.20); Basophils % (auto) 0.2 %; Hematocrit (blood only) 29.2 % (37.0-47.0); Hemoglobin 9.6 g/dl (12.0-16.0); Immature Granulocytes # (auto) 0.16 K/uL (0.01-0.20); Immature Granulocytes % (auto) 1.2 %; Lymphocytes # (auto) 0.57 K/uL (1.20-3.40); Lymphocytes % (auto) 4.2 %; Mean Corpuscular Hgb Conc 32.9 g/dL (32.0-36.0); Mean Corpuscular Volume 103.5 fL (80.0-100.0); Mean Platelet Volume 10.9 fL (9.4-12.4); Monocytes # (auto) 0.75 K/uL (0.11-0.59); Monocytes % (auto) 5.6 %; Neutrophils # (auto) 11.91 K/uL (1.40-6.50); Neutrophils % (auto) 88.8 %; Platelet Count 190 K/uL (130-400); RDW Coefficient of Variation 14.5 % (11.5-14.5); Red Blood Count 2.82 M/uL (4.20-5.40); White Blood Count 13.42 K/ul (4.8-10.8)
[2024-05-07 05:39] LABS: Albumin Level 3.9 gm/dl (3.4-5.0); BUN Creatinine Ratio 6.5 (10-20); Bilirubin Direct 0.1 mg/dl (0-0.2); Bilirubin,Total 0.4 mg/dl (0.2-1.0); Calcium 9.3 mg/dl (8.6-10.3); Creatinine Clr Calc Pharmacy 8.5 ml/min; Magnesium 1.8 mg/dl (1.7-2.4); Phosphorus 4.6 mg/dl (2.5-4.9); Potassium 3.9 mmol/L (3.5-5.1); Total Protein 7.2 gm/dl (6.0-8.3)
[2024-05-07] MEDS ORDERED: MAGNESIUM OXIDE 400 MG TAB NG ONE (05:40)
[2024-05-07] MEDS ORDERED: POTASSIUM CHLORIDE 20 MEQ/15 ML UDC NG ONE (05:40)
[2024-05-07] MEDS ORDERED: INSULIN ASPART PER UNIT CHARGE SC SCH (06:00)
[2024-05-07] MEDS ORDERED: ICU ELECTROLYTE REPLACEMENT PROTOCOL SCH (06:00)
[2024-05-07] MEDS: MAGNESIUM SULFATE / D5W 1 GM/100 ML BAG IV ONE (06:22)
[2024-05-07] MEDS: LEVOTHYROXINE SODIUM 125 MCG TABLET PO SCH (06:23)
[2024-05-07] MEDS ORDERED: ICU Protocol for HYPERglycemia SCH ×2 (07:30)
--- NOTE | 2024-05-07 07:39 | XRay Report ---
EXAM: XR chest 1V portable CLINICAL HISTORY: Follow up CXR. TECHNIQUE: X-ray chest was performed in 1 view: PA projection. COMPARISON: Prior CR dated 05/06/2024. FINDINGS: The endotracheal tube is seen in place with its tip about 3.0 cm above the rusty. NG tube is seen, its distal tip is not visualized however it is seen below the diaphragm. Prominent bilateral hilar with increased bronchovascular markings and possible cephalization. A small opacity in the left perihilar region. Blunting of the bilateral costophrenic angles. Patchy haziness in the bilateral lung anand predominantly in the lower zones. The apparent widening of the mediastinum. Mild to moderate cardiomegaly. Opacity in the cardiophrenic angle represents the epicardial fat pad. IMPRESSION: 1. The endotracheal tube is seen in place with its tip about 3.0 cm above the rusty. Interval new finding. 2. NG tube is seen, but its distal tip is not visualized however it is seen below the diaphragm. Interval new finding. 3. The imaging findings are likely due to the pulmonary edema with bilateral pleural effusion however possibility of infection cannot be ruled out. Electronically signed by Cesar Mancuso 05-07-2024 07:38 AM
[2024-05-07] MEDS: ALBUT/IPRATROP 3MG/0.5MG NEB 3 ML VIAL INH PRN (07:48)
[2024-05-07] MEDS: MIDODRINE HCL 2.5 MG TAB PO SCH ×2 (08:38→08:39)
[2024-05-07] MEDS: CARBIDOPA/LEVODOPA 25/100MG TAB PO SCH (08:39)
[2024-05-07] MEDS: ESCITALOPRAM OXALATE 10 MG TAB PO SCH (08:39)
[2024-05-07] MEDS: NEPHROCAPS PO SCH (08:39)
[2024-05-07] MEDS: PANTOprazole 40 MG/10 ML SYR IV SCH (08:39)
[2024-05-07] MEDS: CHOLECALCIFEROL 25 MCG (1000 UNITS) TAB PO SCH (08:39)
[2024-05-07] MEDS: DOCUSATE SODIUM SYRUP 100 MG/10 ML UDC PO SCH (08:39)
[2024-05-07] MEDS: ASPIRIN 81 MG CHEW PO SCH (08:39)
--- NOTE | 2024-05-07 09:35 | Critical Care Progress Note ---
Date of Service May 07, 2024 Assessment & Plan (1) Sepsis: (2) Acute hypoxemic respiratory failure: (3) Pneumonia: (4) Influenza A: (5) Acute metabolic encephalopathy: Plan Reason Critically Ill: 1. Acute on chronic hypoxemic respiratory failure 2/2 #2 and limited respiratory reserve 2. Influenza A 3. Metabolic encephalopathy 4. Possible UTI 5. Sepsis 6. NSTEMI, type II Neuro - RASS GOAL 0 to -1 APAP PRN pain/fever Propofol and fentanyl gtt Sinemet: Unable to give secondary to inadequate enteral access Per chart review, patient on sertraline and escitalopram (Med rec to be completed) Hold Lyrica for now Cardiac - EKG sinus with PVCs, non-ischemic. Normal QTc MAP goal > 65mmHg Continue statin midodrine Respiratory - Schedule DuoNeb, Albuterol PRN SpO2 goal 88-92% SAT/SBT daily VAP protocol HOB 30-45 CT Chest report reviewed GI - Diet: NPO except meds via OGT SUP: PPI Bowel regimen: Miralax RENAL/LYTES - Nephrology consult for iHD, -Plan for dialysis today regular schedule Friday Replete electrolytes as indicated Kirby was placed in ED, UA able to be obtained. Removed today Maintain net even to net negative ENDO - Levoxyl BG 140-180 per [facility] guidelines ISS if needed while inpatient HEME - No acute concerns ID - Given patient lives in a nursing facility, has been on IV antibiotics in the last 90 days, she is at risk for pseudomonas infection. Start Zosyn. 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 Start Vancomycin in place on daptomycin. De-escalate coverage as guided by culture data. BC x2 pending, UA +, UCx pending, procalcitonin elevated, Flu A+, sputum Cx pending LINES/TUBES/DRAINS - PIV x2 Kirby (Day #1) ETT (Day #1) OGT (Day #1) DVT PROPHYLAXIS - [facility] Admission and Anticipated Discharge Date Admission Date: May 06, 2024 Supervising Physician Co-Signing Physician Notes I have personally spent 45 minutes of critical care time in the direct managemen t of this patient. This is a life/limb threatening event. This includes time spent evaluating patient, direct bedside care, chart review, placing orders, interpretation of diagnostic studies, discussion with consultants, patient, and family members, as well as other required patient management activities. This time is exclusive of all separately billable procedures, and teaching time and separate from and in addition to any other critical care service time. Subjective No overnight events. Physical Exam Physical Exam: General: Sedated. nontoxic. Skin: Warm, dry, Head: Atraumatic Ears, nose, mouth and throat: airway obscured by endotracheal tube Cardiovascular: Normal peripheral perfusion Respiratory: Ventilator settings reviewed Gastrointestinal: Non distended Musculoskeletal: No deformity Results & Data Results & Data Vital Signs (Past 12 Hours) Vital Signs Temp Pulse Pulse Resp BP BP Pulse Ox 05/07/24 08:16 105/44 L 05/07/24 08:09 37.0 C 57 L 16 94 05/07/24 08:00 120/52 L 05/07/24 08:00 51 L 05/07/24 07:54 37.0 C 53 L 0 L 95 05/07/24 07:46 108/46 L 05/07/24 07:45 37.1 C 55 L 16 95 05/07/24 07:39 50 L 16 96 05/07/24 07:31 115/53 L 05/07/24 07:30 37.1 C 53 L 14 96 05/07/24 07:16 109/49 L 05/07/24 07:12 37.1 C 51 L 13 100 05/07/24 07:03 37.2 C 51 L 13 100 05/07/24 07:01 142/56 H 05/07/24 06:51 37.1 C 54 L 13 100 05/07/24 06:46 146/60 H 05/07/24 06:42 37.2 C 55 L 14 100 05/07/24 06:39 153/56 H 05/07/24 06:33 37.2 C 55 L 13 100 05/07/24 06:31 168/59 H 05/07/24 06:27 37.2 C 63 13 100 05/07/24 06:16 141/80 H 05/07/24 06:12 37.2 C 71 14 100 05/07/24 06:01 118/51 L 05/07/24 06:00 37.2 C 50 L 16 100 05/07/24 05:39 37.3 C 54 L 16 100 05/07/24 05:03 37.3 C 54 L 14 99 05/07/24 05:01 118/40 L 05/07/24 05:01 118/40 L 05/07/24 05:01 118/40 L 05/07/24 05:01 118/40 L 05/07/24 04:57 37.3 C 54 L 14 100 05/07/24 04:51 123/55 L 05/07/24 04:51 123/55 L 05/07/24 04:51 37.3 C 53 L 14 97 05/07/24 04:41 124/53 L 05/07/24 04:33 37.2 C 56 L 14 97 05/07/24 04:31 120/63 05/07/24 04:31 120/63 05/07/24 04:31 120/63 05/07/24 04:27 37.2 C 58 L 14 96 05/07/24 04:25 120/56 L 05/07/24 04:25 120/56 L 05/07/24 04:24 37.1 C 57 L 14 96 05/07/24 04:15 136/60 05/07/24 04:03 189/54 H 05/07/24 04:00 05/07/24 03:57 37.0 C 66 14 98 05/07/24 03:55 181/70 H 05/07/24 03:55 181/70 H 05/07/24 03:54 37.0 C 60 14 05/07/24 03:38 58 L 16 95 05/07/24 03:33 37.0 C 61 14 97 05/07/24 03:18 86/28 L 05/07/24 03:15 37.0 C 60 13 94 05/07/24 03:01 131/51 L 05/07/24 03:00 36.9 C 59 L 14 97 05/07/24 02:58 126/50 L 05/07/24 02:58 126/50 L 05/07/24 02:57 36.9 C 60 16 97 05/07/24 02:33 36.8 C 63 16 100 05/07/24 02:31 161/63 H 05/07/24 02:31 161/63 H 05/07/24 02:18 36.8 C 61 16 100 05/07/24 02:03 36.8 C 57 L 16 99 05/07/24 02:01 136/50 L 05/07/24 02:01 136/50 L 05/07/24 02:01 136/50 L 05/07/24 02:01 136/50 L 05/07/24 02:01 136/50 L 05/07/24 02:00 36.8 C 59 L 16 100 05/07/24 01:33 36.7 C 60 16 100 05/07/24 01:31 169/63 H 05/07/24 01:31 169/63 H 05/07/24 01:31 169/63 H 05/07/24 01:31 169/63 H 05/07/24 01:17 153/51 H 05/07/24 01:06 36.8 C 58 L 16 100 05/07/24 01:06 117/47 L 05/07/24 01:06 117/47 L 05/07/24 01:06 117/47 L 05/07/24 01:06 117/47 L 05/07/24 01:03 36.8 C 56 L 16 98 05/07/24 01:01 99/46 L 05/07/24 01:01 99/46 L 05/07/24 01:01 106/46 L 05/07/24 00:45 36.8 C 57 L 16 98 05/07/24 00:40 109/48 L 05/07/24 00:40 109/48 L 05/07/24 00:36 97/44 L 05/07/24 00:36 97/44 L 05/07/24 00:34 60 17 6 L 05/07/24 00:30 36.8 C 62 16 97 05/07/24 00:17 96/38 L 05/07/24 00:16 94/44 L 05/07/24 00:09 36.8 C 61 18 96 05/07/24 00:01 89/71 L 05/07/24 00:01 89/71 L 05/07/24 00:01 89/71 L 05/07/24 00:01 89/71 L 05/07/24 00:00 63 05/07/24 00:00 05/06/24 23:57 36.9 C 60 18 97 05/06/24 23:49 97/44 L 05/06/24 23:48 36.9 C 61 18 95 05/06/24 23:31 93/39 L 05/06/24 23:31 93/39 L 05/06/24 23:30 37.0 C 59 L 18 95 05/06/24 23:15 61 18 94 05/06/24 23:12 95/37 L 05/06/24 23:00 05/06/24 22:33 37 C 74 24 165/78 H 99 05/06/24 22:33 71 19 100 05/06/24 21:54 62 18 91 05/06/24 21:50 99/49 L 05/06/24 21:50 99/49 L 05/06/24 21:48 62 18 87/40 L 91 05/06/24 21:40 63 18 87/40 L 91 O2 Del Method FiO2 05/07/24 08:16 05/07/24 08:09 05/07/24 08:00 05/07/24 08:00 05/07/24 07:54 05/07/24 07:46 05/07/24 07:45 Mechanical Vent 60 05/07/24 07:39 40 05/07/24 07:31 05/07/24 07:30 05/07/24 07:16 05/07/24 07:12 05/07/24 07:03 05/07/24 07:01 05/07/24 06:51 05/07/24 06:46 05/07/24 06:42 05/07/24 06:39 05/07/24 06:33 05/07/24 06:31 05/07/24 06:27 05/07/24 06:16 05/07/24 06:12 05/07/24 06:01 05/07/24 06:00 05/07/24 05:39 05/07/24 05:03 05/07/24 05:01 05/07/24 05:01 05/07/24 05:01 05/07/24 05:01 05/07/24 04:57 05/07/24 04:51 05/07/24 04:51 05/07/24 04:51 05/07/24 04:41 05/07/24 04:33 05/07/24 04:31 05/07/24 04:31 05/07/24 04:31 05/07/24 04:27 05/07/24 04:25 05/07/24 04:25 05/07/24 04:24 05/07/24 04:15 05/07/24 04:03 05/07/24 04:00 60 05/07/24 03:57 05/07/24 03:55 05/07/24 03:55 05/07/24 03:54 05/07/24 03:38 60 05/07/24 03:33 05/07/24 03:18 05/07/24 03:15 05/07/24 03:01 05/07/24 03:00 05/07/24 02:58 05/07/24 02:58 05/07/24 02:57 05/07/24 02:33 05/07/24 02:31 05/07/24 02:31 05/07/24 02:18 05/07/24 02:03 05/07/24 02:01 05/07/24 02:01 05/07/24 02:01 05/07/24 02:01 05/07/24 02:01 05/07/24 02:00 05/07/24 01:33 05/07/24 01:31 05/07/24 01:31 05/07/24 01:31 05/07/24 01:31 05/07/24 01:17 05/07/24 01:06 05/07/24 01:06 05/07/24 01:06 05/07/24 01:06 05/07/24 01:06 05/07/24 01:03 05/07/24 01:01 05/07/24 01:01 05/07/24 01:01 05/07/24 00:45 05/07/24 00:40 05/07/24 00:40 05/07/24 00:36 05/07/24 00:36 05/07/24 00:34 60 05/07/24 00:30 05/07/24 00:17 05/07/24 00:16 05/07/24 00:09 05/07/24 00:01 05/07/24 00:01 05/07/24 00:01 05/07/24 00:01 05/07/24 00:00 05/07/24 00:00 60 05/06/24 23:57 05/06/24 23:49 05/06/24 23:48 05/06/24 23:31 05/06/24 23:31 05/06/24 23:30 05/06/24 23:15 05/06/24 23:12 05/06/24 23:00 Mechanical Vent 05/06/24 22:33 Mechanical Vent 05/06/24 22:33 05/06/24 21:54 05/06/24 21:50 05/06/24 21:50 Mechanical Vent 05/06/24 21:48 05/06/24 21:40 Mechanical Vent Critical Care Results & Data Vital Signs (Past 12 Hours) Vital Signs Temp Pulse Pulse Resp BP BP Pulse Ox 05/07/24 08:16 105/44 L 05/07/24 08:09 37.0 C 57 L 16 94 05/07/24 08:00 120/52 L 05/07/24 08:00 51 L 05/07/24 07:54 37.0 C 53 L 0 L 95 05/07/24 07:46 108/46 L 05/07/24 07:45 37.1 C 55 L 16 95 05/07/24 07:39 50 L 16 96 05/07/24 07:31 115/53 L 05/07/24 07:30 37.1 C 53 L 14 96 05/07/24 07:16 109/49 L 05/07/24 07:12 37.1 C 51 L 13 100 05/07/24 07:03 37.2 C 51 L 13 100 05/07/24 07:01 142/56 H 05/07/24 06:51 37.1 C 54 L 13 100 05/07/24 06:46 146/60 H 05/07/24 06:42 37.2 C 55 L 14 100 05/07/24 06:39 153/56 H 05/07/24 06:33 37.2 C 55 L 13 100 05/07/24 06:31 168/59 H 05/07/24 06:27 37.2 C 63 13 100 05/07/24 06:16 141/80 H 05/07/24 06:12 37.2 C 71 14 100 05/07/24 06:01 118/51 L 05/07/24 06:00 37.2 C 50 L 16 100 05/07/24 05:39 37.3 C 54 L 16 100 05/07/24 05:03 37.3 C 54 L 14 99 05/07/24 05:01 118/40 L 05/07/24 05:01 118/40 L 05/07/24 05:01 118/40 L 05/07/24 05:01 118/40 L 05/07/24 04:57 37.3 C 54 L 14 100 05/07/24 04:51 123/55 L 05/07/24 04:51 123/55 L 05/07/24 04:51 37.3 C 53 L 14 97 05/07/24 04:41 124/53 L 05/07/24 04:33 37.2 C 56 L 14 97 05/07/24 04:31 120/63 05/07/24 04:31 120/63 05/07/24 04:31 120/63 05/07/24 04:27 37.2 C 58 L 14 96 05/07/24 04:25 120/56 L 05/07/24 04:25 120/56 L 05/07/24 04:24 37.1 C 57 L 14 96 05/07/24 04:15 136/60 05/07/24 04:03 189/54 H 05/07/24 04:00 05/07/24 03:57 37.0 C 66 14 98 05/07/24 03:55 181/70 H 05/07/24 03:55 181/70 H 05/07/24 03:54 37.0 C 60 14 05/07/24 03:38 58 L 16 95 05/07/24 03:33 37.0 C 61 14 97 05/07/24 03:18 86/28 L 05/07/24 03:15 37.0 C 60 13 94 05/07/24 03:01 131/51 L 05/07/24 03:00 36.9 C 59 L 14 97 05/07/24 02:58 126/50 L 05/07/24 02:58 126/50 L 05/07/24 02:57 36.9 C 60 16 97 05/07/24 02:33 36.8 C 63 16 100 05/07/24 02:31 161/63 H 05/07/24 02:31 161/63 H 05/07/24 02:18 36.8 C 61 16 100 05/07/24 02:03 36.8 C 57 L 16 99 05/07/24 02:01 136/50 L 05/07/24 02:01 136/50 L 05/07/24 02:01 136/50 L 05/07/24 02:01 136/50 L 05/07/24 02:01 136/50 L 05/07/24 02:00 36.8 C 59 L 16 100 05/07/24 01:33 36.7 C 60 16 100 05/07/24 01:31 169/63 H 05/07/24 01:31 169/63 H 05/07/24 01:31 169/63 H 05/07/24 01:31 169/63 H 05/07/24 01:17 153/51 H 05/07/24 01:06 36.8 C 58 L 16 100 05/07/24 01:06 117/47 L 05/07/24 01:06 117/47 L 05/07/24 01:06 117/47 L 05/07/24 01:06 117/47 L 05/07/24 01:03 36.8 C 56 L 16 98 05/07/24 01:01 99/46 L 05/07/24 01:01 99/46 L 05/07/24 01:01 106/46 L 05/07/24 00:45 36.8 C 57 L 16 98 05/07/24 00:40 109/48 L 05/07/24 00:40 109/48 L 05/07/24 00:36 97/44 L 05/07/24 00:36 97/44 L 05/07/24 00:34 60 17 6 L 05/07/24 00:30 36.8 C 62 16 97 05/07/24 00:17 96/38 L 05/07/24 00:16 94/44 L 05/07/24 00:09 36.8 C 61 18 96 05/07/24 00:01 89/71 L 05/07/24 00:01 89/71 L 05/07/24 00:01 89/71 L 05/07/24 00:01 89/71 L 05/07/24 00:00 63 05/07/24 00:00 05/06/24 23:57 36.9 C 60 18 97 05/06/24 23:49 97/44 L 05/06/24 23:48 36.9 C 61 18 95 05/06/24 23:31 93/39 L 05/06/24 23:31 93/39 L 05/06/24 23:30 37.0 C 59 L 18 95 05/06/24 23:15 61 18 94 05/06/24 23:12 95/37 L 05/06/24 23:00 05/06/24 22:33 37 C 74 24 165/78 H 99 05/06/24 22:33 71 19 100 O2 Del Method FiO2 05/07/24 08:16 05/07/24 08:09 05/07/24 08:00 05/07/24 08:00 05/07/24 07:54 05/07/24 07:46 05/07/24 07:45 Mechanical Vent 60 05/07/24 07:39 40 05/07/24 07:31 05/07/24 07:30 05/07/24 07:16 05/07/24 07:12 05/07/24 07:03 05/07/24 07:01 05/07/24 06:51 05/07/24 06:46 05/07/24 06:42 05/07/24 06:39 05/07/24 06:33 05/07/24 06:31 05/07/24 06:27 05/07/24 06:16 05/07/24 06:12 05/07/24 06:01 05/07/24 06:00 05/07/24 05:39 05/07/24 05:03 05/07/24 05:01 05/07/24 05:01 05/07/24 05:01 05/07/24 05:01 05/07/24 04:57 05/07/24 04:51 05/07/24 04:51 05/07/24 04:51 05/07/24 04:41 05/07/24 04:33 05/07/24 04:31 05/07/24 04:31 05/07/24 04:31 05/07/24 04:27 05/07/24 04:25 05/07/24 04:25 05/07/24 04:24 05/07/24 04:15 05/07/24 04:03 05/07/24 04:00 60 05/07/24 03:57 05/07/24 03:55 05/07/24 03:55 05/07/24 03:54 05/07/24 03:38 60 05/07/24 03:33 05/07/24 03:18 05/07/24 03:15 05/07/24 03:01 05/07/24 03:00 05/07/24 02:58 05/07/24 02:58 05/07/24 02:57 05/07/24 02:33 05/07/24 02:31 05/07/24 02:31 05/07/24 02:18 05/07/24 02:03 05/07/24 02:01 05/07/24 02:01 05/07/24 02:01 05/07/24 02:01 05/07/24 02:01 05/07/24 02:00 05/07/24 01:33 05/07/24 01:31 05/07/24 01:31 05/07/24 01:31 05/07/24 01:31 05/07/24 01:17 05/07/24 01:06 05/07/24 01:06 05/07/24 01:06 05/07/24 01:06 05/07/24 01:06 05/07/24 01:03 05/07/24 01:01 05/07/24 01:01 05/07/24 01:01 05/07/24 00:45 05/07/24 00:40 05/07/24 00:40 05/07/24 00:36 05/07/24 00:36 05/07/24 00:34 60 05/07/24 00:30 05/07/24 00:17 05/07/24 00:16 05/07/24 00:09 05/07/24 00:01 05/07/24 00:01 05/07/24 00:01 05/07/24 00:01 05/07/24 00:00 05/07/24 00:00 60 05/06/24 23:57 05/06/24 23:49 05/06/24 23:48 05/06/24 23:31 05/06/24 23:31 05/06/24 23:30 05/06/24 23:15 05/06/24 23:12 05/06/24 23:00 Mechanical Vent 05/06/24 22:33 Mechanical Vent 05/06/24 22:33 Lab & Micro Results (Past 24 Hours) RBC 2.82 M/uL (4.20-5.40) L 05/07/24 WBC 13.42 K/ul (4.8-10.8) H 05/07/24 Hgb 9.6 g/dl (12.0-16.0) L 05/07/24 Hct 29.2 % (37.0-47.0) L 05/07/24 MCV 103.5 fL (80.0-100.0) H 05/07/24 MCH 34.0 pg (25.0-34.0) 05/07/24 MCHC 32.9 g/dL (32.0-36.0) 05/07/24 RDW Standard Deviation 55.0 fL (36.4-46.3) H 05/07/24 RDW Coefficient of Variation 14.5 % (11.5-14.5) 05/07/24 Plt Count 190 K/uL (130-400) 05/07/24 MPV 10.9 fL (9.4-12.4) 05/07/24 Neutrophils (%) (Auto) 88.8 % 05/07/24 Lymphocytes (%) (Auto) 4.2 % 05/07/24 Monocytes # (Auto) 0.75 K/uL (0.11-0.59) H 05/07/24 Eosinophils # (Auto) 0.00 K/uL (0.00-0.50) 05/07/24 Immature Granulocyte % (Auto) 1.2 % 05/07/24 Neutrophils # (Auto) 11.91 K/uL (1.40-6.50) H 05/07/24 Lymphocytes # (Auto) 0.57 K/uL (1.20-3.40) L 05/07/24 Monocytes # (Auto) 0.75 K/uL (0.11-0.59) H 05/07/24 Eosinophils # (Auto) 0.00 K/uL (0.00-0.50) 05/07/24 Basophils # (Auto) 0.03 K/uL (0.00-0.20) 05/07/24 Immature Granulocyte # (Auto) 0.16 K/uL (0.01-0.20) 5 Na 137 mmol/L (136-145) 05/07/24 K 3.9 mmol/L (3.5-5.1) 05/07/24 Cl 94 mmol/L (98-107) L 05/07/24 CO2 28 mmol/L (21-32) 05/07/24 Anion Gap 15 (3-11) H 05/07/24 BUN 41 mg/dl (6-23) H 05/07/24 Creatinine 6.35 mg/dl (0.6-1.2) H* 05/07/24 BUN/Creatinine Ratio 6.5 (10-20) L 05/07/24 Glu 193 mg/dl (70-99(Fasting)) H 05/07/24 Ca 9.3 mg/dl (8.6-10.3) 05/07/24 Phosphorus Level 4.6 mg/dl (2.5-4.9) 05/07/24 Total Bilirubin 0.4 mg/dl (0.2-1.0) 05/07/24 Direct Bilirubin 0.1 mg/dl (0-0.2) 05/07/24 AST 29 U/L (13-39) 05/07/24 ALT 8 U/L (7-52) 05/07/24 Alkaline Phosphatase 81 U/L (34-104) 05/07/24 TP 7.2 gm/dl (6.0-8.3) 05/07/24 Albumin 3.9 gm/dl (3.4-5.0) 05/07/24 Globulin 3.7 gm/dl (2.5-4.0) 05/06/24 Albumin/Globulin Ratio 1.1 (0.9-2) 05/06/24 Mg 1.8 mg/dl (1.7-2.4) 05/07/24 04:14 Calcium Level 9.3 mg/dl (8.6-10.3) 05/07/24 04:14 Prothromb Time International Ratio 1.0 (0.9-1.1) 05/06/24 18:5 7 Venous Blood pH 7.41 (7.36-7.41) 05/06/24 18:57 Venous Blood Partial Pressure CO2 55 mmHg (38-50) H 05/06/24 18 :57 Venous Blood Partial Pressure O2 40 mmHg 05/06/24 18:57 Venous Blood HCO3 35 mmol/L 05/06/24 18:57 Venous Blood Base Excess 8.4 mEq/L 05/06/24 18:57 Venous Blood Oxygen Saturation 69.1 % 05/06/24 18:57 Richard Test Pass 05/07/24 00:06 Diagnostic Findings (Past 24 Hours) Chest X-Ray 05/06/24 19:05 EXAM: Radiograph of the Chest 1 View INDICATION: Dyspnea. TECHNIQUE: Frontal view of the chest. COMPARISON: 05/23/2022 FINDINGS: Lungs and pleural spaces: Shallow inspiration with carotid vasculature. Suspect superimposed vascular congestion. Question infiltrate or nodule in the left lung base measuring about 3.6 cm diameter. Heart: Stable large cardiac shadow. Mediastinum: Normal contour. Bones/joints: No fracture, erosion or dislocation. Soft tissues: No abnormality noted. No radiopaque foreign body noted. Upper abdomen: No abnormality noted. IMPRESSION: Limited expiratory exam with probable pulmonary vascular congestion. There is an opacity projecting over the medial left lung base which could be a calcified mitral annulus or pulmonary infiltrate/nodule. [address] recommended depending on the clinical circumstances. ACT 112: Negative or not required by law. Electronically signed by Hyun Valderrama 05-06-2024 7:[address] 05/06/24 20:59 Exam(s): CT CHEST Without Contrast EXAM: CT Chest Without Intravenous Contrast CLINICAL HISTORY: Rule out LLL infiltrate. TECHNIQUE: Axial computed tomography images of the chest without intravenous contrast. CTDI is 37.33 mGy and DLP is 1023.74 mGy-cm. Automated exposure control was utilized for the study. A dose lowering technique was utilized adhering to the principles of ALARA. COMPARISON: Portable plain radiograph performed earlier; CT chest without contrast 05/23/2022 FINDINGS: Lungs: Accounting for respiratory artifact, there are subtle patchy opacities in the posterior right upper lobe, the superior and medial basal segment of the right lower lobe. Less prominent changes are noted involving the inferior aspect of the left upper lobe and the medial basal segment of the left lower lobe. These are all new from the previous examination. Pleural space: Unremarkable. No pneumothorax. No significant effusion. Heart: Similar to less prominent global cardiomegaly. Chronic coronary artery calcification. No pericardial effusion. Bones/joints: No acute osseous abnormality with stable hypertrophic marginal osteophytes throughout the thoracic spine. Soft tissues: Unremarkable. Vasculature: The thoracic aorta is normal in caliber without aneurysm. Lymph nodes: Unremarkable. No enlarged lymph nodes. Tubes, lines and devices: Nasogastric tube tip cannot be seen but is below the diaphragm. The endotracheal tube (ETT) is in satisfactory position with tip 1.5 cm above the rusty. IMPRESSION: Accounting for respiratory artifact, there are subtle patchy opacities in the posterior right upper lobe, the superior and medial basal segment of the right lower lobe. Less prominent changes are noted involving the inferior aspect of the left upper lobe and the medial basal segment of the left lower lobe. These are all new from the previous examination. Multifocal pneumonia is not excluded. Electronically signed by: Alen Rojo MD 05/07/24 01:04 AM Chest X-Ray 05/06/24 21:08 Exam(s): XR CXR 1 VIEW EXAM: XR Chest, 1 View CLINICAL HISTORY: Reason for exam: post inutbation. TECHNIQUE: Frontal view of the chest. COMPARISON: Prior chest x-ray from FINDINGS: There is an endotracheal tube in place approximately 13 mm above the rusty. There is an OG tube overlying the esophagus extending into the stomach with the distal tip of the range. Lungs: Moderate peribronchial thickening of the central bronchi with increased interstitial opacities throughout the lungs. No consolidation. Pleural space: Unremarkable. No pneumothorax. Heart: Moderate cardiomegaly. Mediastinum: Unremarkable. Normal mediastinal contour. Bones/joints: Unremarkable. No acute fracture. IMPRESSION: Endotracheal tube in place approximately 13 mm above the rusty. Recommend pulling the endotracheal tube back 2-3 cm. Electronically signed by: Isidra Meng MD 05/07/24 00:12 AM Chest X-Ray 05/07/24 07:00 EXAM: XR chest 1V portable CLINICAL HISTORY: Follow up CXR. TECHNIQUE: X-ray chest was performed in 1 view: PA projection. COMPARISON: Prior CR dated 05/06/2024. FINDINGS: The endotracheal tube is seen in place with its tip about 3.0 cm above the rusty. NG tube is seen, its distal tip is not visualized however it is seen below the diaphragm. Prominent bilateral hilar with increased bronchovascular markings and possible cephalization. A small opacity in the left perihilar region. Blunting of the bilateral costophrenic angles. Patchy haziness in the bilateral lung anand predominantly in the lower zones. The apparent widening of the mediastinum. Mild to moderate cardiomegaly. Opacity in the cardiophrenic angle represents the epicardial fat pad. IMPRESSION: 1. The endotracheal tube is seen in place with its tip about 3.0 cm above the rusty. Interval new finding. 2. NG tube is seen, but its distal tip is not visualized however it is seen below the diaphragm. Interval new finding. 3. The imaging findings are likely due to the pulmonary edema with bilateral pleural effusion however possibility of infection cannot be ruled out. Electronically signed by Cesar Mancuso 05-07-2024 07:38 AM I & O Totals 24 Hours 05/06/24 05/07/24 05/08/24 06:59 06:59 06:59 Intake Total 764.050 / 764.050 147.125 / 147.125 Output Total Balance 754.050 / 754.050 147.125 / 147.125 Cumulative 05/06/24 18:38 thru 05/07/24 09:31 Intake Total 911.175 Output Total 10 Balance 901.175 RT Ventilator Mngmt (Last Documented) Ventilator Ordered Settings Ventilator Support Mode Assist Control 05/07/24 07:39 Respiratory Rate 16 05/07/24 08:09 Ventilator Tidal Volume 360 05/07/24 07:39 Setting Minute Ventilation 5.7 05/07/24 07:39 Positive End Expiratory 8 05/07/24 07:39 Pressure Fraction of Inspired Oxygen 60 05/07/24 07:45 Ventilator - PT Measurements Respiratory Rate 16 Exhaled Tidal Volume 360 Minute Ventilation 5.7 Peak Inspiratory Airway 28 Pressure Plateau Pressure 20.9 Respiratory Cycle Inspiratory: 1:2.8 Expiratory Ratio Inspiratory Phase Time 1.0 End-Tidal CO2 38 Static Lung Compliance 27.91 Dynamic Lung Compliance 18.00 Normal Static Lung Compliance 45.00 Patient Measurements Comment ETT pulled back to 23 at the lip per ICU RUBEN verbal order. secured with commercial tube frazier. no complications. will continue to monitor. Coding Level of Care Code 85314 CRITICAL CARE 1ST 30-74M Diagnoses Sepsis A41.9 Acute hypoxemic respiratory failure J96.01 Pneumonia J18.9 Influenza A J10.1 Acute metabolic encephalopathy G93.41
[2024-05-07] MEDS: ALBUT/IPRATROP 3MG/0.5MG NEB 3 ML VIAL INH SCH (10:26)
[2024-05-07] MEDS: POLYETHYLENE (MIRALAX) 17 GM PACK NG SCH (10:26)
[2024-05-07] MEDS: EPOETIN ALFA 10,000 UNITS/ML VIAL IV ONE (11:46)
--- NOTE | 2024-05-07 12:08 | Nephrology Consultation ---
Date of Consultation May 07, 2024 Assessment & Plan (1) ESRD (end stage renal disease) on dialysis: Today is her dialysis day and will do dialysis. However she is very very sick at this time--Acute resp failure on ventilator. BP is also much lower and needing Levophed. This makes her dialysis very challenging. Cautiously do dialysis with aim for 2 kilo fluid off. Will try to aim for SBP > 90 and titrate levophed as needed to achieve this. She had elevated WBC and had evidence of Sepsis--pending blood and urine C/s report. ABx empirically for now. Does have Inf A though UA is active but she has ESRD so hard to interpret. ABx pending urine C/s report. K and other lytes are normal range. CXR and CT shows e/o Pulm edema and pl eff and Multifocal pneumonia. will try to take whatever we can. may even need Dialysis again tomorrow for more fluid off. (2) Acute on chronic hypoxic respiratory failure: has COpd 2with chronic o2 but now lot worse with Intubation and ventillator status currently. has some Pulm congestion also so will try to take some fluid off as allowed by BP. (3) Influenza A: Having severe presentation with this. Makes everything more difficult including Dialysis. Plan time spent 61 mins in total for H and P, chart review, care co-ordination. High risk of given severe presentation. History of Present Illness Attending Physician: Marito Gu MD History of Present Illness 78/F with ESRD on hemodialysis--MWF, COPD on 3 L of oxygen, Parkinson's disease, hypothyroidism, type 2 diabetes mellitus, RENÉ, hyperlipidemia, generalized anxiety disorder Patient was sent to the hospital from [facility] after she was found to be confused and short of breath with fever and she was more lethargic. She was found to have influenza A positive. The patient had progressively became lethargic which prompted them to call EMS for transfer to the hospital. On presentation to the ED, she was normotensive, afebrile and was hypoxic to 83%. Patient was placed on facemask. with worsening altered mental status, patient was intubated and mechanically ventilated. Now admitted to ICU for further management. Still on Vent and On Pressors. Getting Dialysis currently through [facility]. Ros--Not able to obtain. Sedated and Intubated Physical Exam Physical Exam: Constitutional: Sedated, mechanically ventilated. Respiratory: Bilateral mechanical breath sound Cardiovascular: RRR, no murmur, 1+ edema no JVD Chest: b/l Diminished. occ crackles Abdomen: normal bowel sounds, Skin: no rashes, warm and dry normal turgor Neurologic: Sedated Allergies Allergy/AdvReac Type Severity Reaction Status Date / Time No Known Allergies Allergy Verified 05/06/24 20:04 Home Medications Medication Instructions Recorded Confirmed Type aspirin 81 mg tablet,delayed 162 mg PO 3XWK 11/15/21 05/06/24 History release atorvastatin 80 mg tablet 80 mg PO QPM 11/15/21 05/06/24 History carbidopa 25 mg-levodopa 100 mg 1 tab PO TIDM 11/15/21 05/06/24 History tablet docusate sodium 100 mg capsule 100 mg PO DAILY 11/15/21 05/06/24 History (Colace) levothyroxine 125 mcg tablet 125 mcg PO QAM 11/15/21 05/06/24 History pregabalin 100 mg capsule 100 mg PO BID 11/15/21 05/06/24 History pantoprazole 20 mg tablet,delayed 20 mg PO BID 05/23/22 05/06/24 History release epinephrine 0.3 mg/0.3 mL 0.3 mg IM DIRECTED PRN 09/05/22 05/06/24 History injection, auto-injector (EpiPen) Anaphylaxis melatonin 10 mg tablet 10 mg PO HS 09/05/22 05/06/24 History ferric citrate 210 mg iron tablet 420 mg PO WM 01/21/23 05/06/24 History (Auryxia) fluticasone furoate 200 1 inh inhalation AMHS 01/21/23 05/06/24 History mcg-vilanterol 25 mcg/dose inhalation powder (Breo Ellipta) cholecalciferol (vitamin D3) 25 25 mcg PO DAILY 10/27/23 05/06/24 History mcg (1,000 unit) capsule midodrine 5 mg tablet 5 mg PO TID 10/27/23 05/06/24 History vitamin B complex-vitamin C-folic 1 tab PO DAILY 10/27/23 05/06/24 History acid 0.8 mg tablet (Nanci-Samuel) acetaminophen 325 mg tablet 325 - 650 mg PO Q6 PRN MILD-SEVERE 05/06/24 05/06/24 History PAIN acetaminophen 500 mg tablet 500 mg PO QID 3G 05/06/24 05/06/24 History dextromethorphan-guaifenesin 10 2.5 ml PO Q4 PRN Cough 05/06/24 05/06/24 History mg-200 mg/5 mL oral liquid diclofenac sodium 1 % topical gel 2 g topical QID 05/06/24 05/06/24 History escitalopram oxalate 10 mg tablet 10 mg PO QAM 05/06/24 05/06/24 History ferric citrate 210 mg iron tablet 210 mg PO . NEEDED PRN WITH 05/06/24 05/06/24 History (Auryxia) SNACKS guaifenesin 100 mg/5 mL oral 200 mg PO Q4H PRN Cough 05/06/24 05/06/24 History liquid (Siltussin SA) ipratropium 0.5 mg-albuterol 3 mg 3 ml inhalation Q4 PRN Wheezing 05/06/24 05/06/24 History (2.5 mg base)/3 mL nebulization soln ipratropium 0.5 mg-albuterol 3 mg 3 ml inhalation TID 05/06/24 05/06/24 History (2.5 mg base)/3 mL nebulization soln lidocaine-prilocaine 2.5 %-2.5 % 1 applic topical 3XWK 05/06/24 05/06/24 History topical cream midodrine 10 mg tablet 5 mg PO 3XWK 05/06/24 05/06/24 History midodrine 5 mg tablet 5 mg PO UD 05/06/24 05/06/24 History ondansetron HCl 4 mg tablet 4 mg PO Q6H PRN Nausea And Vomiting 05/06/24 05/06/24 History sertraline 25 mg tablet 25 mg PO UD 05/06/24 05/06/24 History sertraline 50 mg tablet 50 mg PO QAM 05/06/24 05/06/24 History Patient History Medical History ESRD on hemodialysis Thickened endometrium Acute ischemic stroke NSTEMI (non-ST elevated myocardial infarction) Elevated troponin I level AV fistula R arm Limb alert care status R arm History of recent hospitalization d/c 09/09/22>per medical record, pt sent to ER at [facility] following dialysis for reddened sores on her buttocks. Admitting dx was enterococcus UTI, decubitus ulcer and sacral cellulitis. Difficult intravenous access Black stools Mobility impaired pt non compliant with hx pt treatments / PT IS IN WHEELCHAIR/TOTAL ASSIST Poor short term memory KASHIA (hard of hearing) COPD (chronic obstructive pulmonary disease) no medications for currently History of stroke 2019- pts spouse poor historian pt denies hx stroke History of anesthesia reaction "hard time waking up" Hx: recurrent pneumonia History of COVID-19 ? early 2021- mild congestion, no hospitalization, no current issues Non-ST elevation CO (NSTEMI) pt spouse not sure/ mild ? remembers something mentioned in hx/ ? details ESRD (end stage renal disease) on dialysis tues, thur & sat ([place]) Aspiration pneumonia HX Morbid obesity Rheumatoid arthritis ? current status/no meds for Chronic diastolic heart failure EF 50% on 01/2020 echo RACHEL (iron deficiency anemia) Subdural hematoma hx fall 2019 - tx to [facility]/no surgical intervention RENÉ on CPAP Depression Meniere's disease Generalized anxiety disorder Dyslipidemia Restless leg syndrome Diabetes mellitus, type II hx / NO MEDS HTN (hypertension) Surgical History Hx of arteriovenostomy for renal dialysis right arm History of tubal ligation History of carpal tunnel surgery B/L History of orthopedic surgery " bilat heel surgery" H/O sinus surgery Hx of total knee arthroplasty B/L Family History Other AAA (abdominal aortic aneurysm) Diabetes Family history non-contributory Hypertension Myotonic dystrophy Social History Smoking Status: Unknown if ever smoked Tobacco Type: Cigarettes Cigarettes Per Day: 0.25ppd; Second Hand Exposure: No; Do You Dip or Chew Tobacco: No; Hx Alcohol Use: No Hx Substance Use: No Preferred Language: Sami Communication Ability: Impaired Communication Ability Comment: intubated 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 Required: No Beliefs That Will Affect Care: None marital status: Current Living Situation: Group Home Current Living Situation Comment: [place] Other Information That Helps Us Care for You: No Feels Safe at Home: Yes Safety Concerns: Feels Safe At This Time Assistive Devices: Mechanical Lift, Oxygen - Continuous and Wheelchair Results & Data Vital Signs (Past 12 Hours) Vital Signs Temp Pulse Pulse Resp BP Pulse Ox O2 Del Method 05/07/24 12:00 57 L 107/54 L 05/07/24 11:30 56 L 106/52 L 05/07/24 11:08 57 L 16 97 05/07/24 11:00 54 L 103/52 L 05/07/24 10:33 36.6 C 54 L 14 97 Mechanical Vent 05/07/24 10:30 94/47 L 05/07/24 10:30 53 L 94/47 L 05/07/24 10:27 36.5 C 53 L 14 97 05/07/24 10:15 53 L 104/47 L 05/07/24 10:15 104/47 L 05/07/24 10:06 36.6 C 52 L 14 97 05/07/24 10:01 99/43 L 05/07/24 10:00 36.7 C 52 L 14 96 05/07/24 10:00 50 L 99/43 L 05/07/24 09:57 103/41 L 05/07/24 09:56 51 L 103/41 L 05/07/24 09:51 36.7 C 52 L 14 95 05/07/24 09:48 36.7 C 52 L 14 95 05/07/24 09:46 105/52 L 05/07/24 09:36 36.7 C 53 L 14 94 05/07/24 09:30 36.7 C 53 L 14 94 05/07/24 09:30 36.7 C 53 L 05/07/24 09:16 99/37 L 05/07/24 09:15 36.8 C 53 L 14 94 05/07/24 09:00 Mechanical Vent 05/07/24 09:00 36.8 C 54 L 14 94 05/07/24 08:48 36.8 C 57 L 14 94 05/07/24 08:45 108/42 L 05/07/24 08:36 36.9 C 59 L 14 93 05/07/24 08:31 97/39 L 05/07/24 08:27 36.9 C 60 16 94 05/07/24 08:24 36.9 C 60 16 94 05/07/24 08:16 105/44 L 05/07/24 08:09 37.0 C 57 L 16 94 05/07/24 08:00 Mechanical Vent 05/07/24 08:00 05/07/24 08:00 120/52 L 05/07/24 08:00 51 L 05/07/24 07:54 37.0 C 53 L 0 L 95 05/07/24 07:46 108/46 L 05/07/24 07:45 37.1 C 55 L 16 95 Mechanical Vent 05/07/24 07:39 50 L 16 96 05/07/24 07:31 115/53 L 05/07/24 07:30 37.1 C 53 L 14 96 05/07/24 07:16 109/49 L 05/07/24 07:12 37.1 C 51 L 13 100 05/07/24 07:03 37.2 C 51 L 13 100 05/07/24 07:01 142/56 H 05/07/24 06:51 37.1 C 54 L 13 100 05/07/24 06:46 146/60 H 05/07/24 06:42 37.2 C 55 L 14 100 05/07/24 06:39 153/56 H 05/07/24 06:33 37.2 C 55 L 13 100 05/07/24 06:31 168/59 H 05/07/24 06:27 37.2 C 63 13 100 05/07/24 06:16 141/80 H 05/07/24 06:12 37.2 C 71 14 100 05/07/24 06:01 118/51 L 05/07/24 06:00 37.2 C 50 L 16 100 05/07/24 05:39 37.3 C 54 L 16 100 05/07/24 05:03 37.3 C 54 L 14 99 05/07/24 05:01 118/40 L 05/07/24 05:01 118/40 L 05/07/24 05:01 118/40 L 05/07/24 05:01 118/40 L 05/07/24 04:57 37.3 C 54 L 14 100 05/07/24 04:51 123/55 L 05/07/24 04:51 123/55 L 05/07/24 04:51 37.3 C 53 L 14 97 05/07/24 04:41 124/53 L 02/21/25 04:33 37.2 C 56 L 14 97 05/07/24 04:31 120/63 05/07/24 04:31 120/63 05/07/24 04:31 120/63 05/07/24 04:27 37.2 C 58 L 14 96 05/07/24 04:25 120/56 L 05/07/24 04:25 120/56 L 05/07/24 04:24 37.1 C 57 L 14 96 05/07/24 04:15 136/60 05/07/24 04:03 189/54 H 05/07/24 04:00 05/07/24 03:57 37.0 C 66 14 98 05/07/24 03:55 181/70 H 05/07/24 03:55 181/70 H 05/07/24 03:54 37.0 C 60 14 05/07/24 03:38 58 L 16 95 05/07/24 03:33 37.0 C 61 14 97 05/07/24 03:18 86/28 L 05/07/24 03:15 37.0 C 60 13 94 05/07/24 03:01 131/51 L 05/07/24 03:00 36.9 C 59 L 14 97 05/07/24 02:58 126/50 L 05/07/24 02:58 126/50 L 05/07/24 02:57 36.9 C 60 16 97 05/07/24 02:33 36.8 C 63 16 100 05/07/24 02:31 161/63 H 05/07/24 02:31 161/63 H 05/07/24 02:18 36.8 C 61 16 100 05/07/24 02:03 36.8 C 57 L 16 99 05/07/24 02:01 136/50 L 05/07/24 02:01 136/50 L 05/07/24 02:01 136/50 L 05/07/24 02:01 136/50 L 05/07/24 02:01 136/50 L 05/07/24 02:00 36.8 C 59 L 16 100 05/07/24 01:33 36.7 C 60 16 100 05/07/24 01:31 169/63 H 05/07/24 01:31 169/63 H 05/07/24 01:31 169/63 H 05/07/24 01:31 169/63 H 05/07/24 01:17 153/51 H 05/07/24 01:06 36.8 C 58 L 16 100 05/07/24 01:06 117/47 L 05/07/24 01:06 117/47 L 05/07/24 01:06 117/47 L 05/07/24 01:06 117/47 L 05/07/24 01:03 36.8 C 56 L 16 98 05/07/24 01:01 99/46 L 05/07/24 01:01 99/46 L 05/07/24 01:01 106/46 L 05/07/24 00:45 36.8 C 57 L 16 98 05/07/24 00:40 109/48 L 05/07/24 00:40 109/48 L 05/07/24 00:36 97/44 L 05/07/24 00:36 97/44 L 05/07/24 00:34 60 17 6 L 05/07/24 00:30 36.8 C 62 16 97 05/07/24 00:17 96/38 L 05/07/24 00:16 94/44 L 05/07/24 00:09 36.8 C 61 18 96 O2 Flow Rate FiO2 05/07/24 12:00 05/07/24 11:30 05/07/24 11:08 40 05/07/24 11:00 05/07/24 10:33 40 05/07/24 10:30 05/07/24 10:30 05/07/24 10:27 05/07/24 10:15 05/07/24 10:15 05/07/24 10:06 05/07/24 10:01 05/07/24 10:00 05/07/24 10:00 05/07/24 09:57 05/07/24 09:56 05/07/24 09:51 05/07/24 09:48 05/07/24 09:46 05/07/24 09:36 05/07/24 09:30 05/07/24 09:30 05/07/24 09:16 05/07/24 09:15 05/07/24 09:00 40 05/07/24 09:00 05/07/24 08:48 05/07/24 08:45 05/07/24 08:36 05/07/24 08:31 05/07/24 08:27 05/07/24 08:24 05/07/24 08:16 05/07/24 08:09 05/07/24 08:00 05/07/24 08:00 60 05/07/24 08:00 05/07/24 08:00 05/07/24 07:54 05/07/24 07:46 05/07/24 07:45 60 05/07/24 07:39 40 05/07/24 07:31 05/07/24 07:30 05/07/24 07:16 05/07/24 07:12 05/07/24 07:03 05/07/24 07:01 05/07/24 06:51 05/07/24 06:46 05/07/24 06:42 05/07/24 06:39 05/07/24 06:33 05/07/24 06:31 05/07/24 06:27 05/07/24 06:16 05/07/24 06:12 05/07/24 06:01 05/07/24 06:00 05/07/24 05:39 05/07/24 05:03 05/07/24 05:01 05/07/24 05:01 05/07/24 05:01 05/07/24 05:01 05/07/24 04:57 05/07/24 04:51 05/07/24 04:51 05/07/24 04:51 05/07/24 04:41 05/07/24 04:33 05/07/24 04:31 05/07/24 04:31 05/07/24 04:31 05/07/24 04:27 05/07/24 04:25 05/07/24 04:25 05/07/24 04:24 05/07/24 04:15 05/07/24 04:03 05/07/24 04:00 60 05/07/24 03:57 05/07/24 03:55 05/07/24 03:55 05/07/24 03:54 05/07/24 03:38 60 05/07/24 03:33 05/07/24 03:18 05/07/24 03:15 05/07/24 03:01 05/07/24 03:00 05/07/24 02:58 05/07/24 02:58 05/07/24 02:57 05/07/24 02:33 05/07/24 02:31 05/07/24 02:31 05/07/24 02:18 05/07/24 02:03 05/07/24 02:01 05/07/24 02:01 05/07/24 02:01 05/07/24 02:01 05/07/24 02:01 05/07/24 02:00 05/07/24 01:33 05/07/24 01:31 05/07/24 01:31 05/07/24 01:31 05/07/24 01:31 05/07/24 01:17 05/07/24 01:06 05/07/24 01:06 05/07/24 01:06 05/07/24 01:06 05/07/24 01:06 05/07/24 01:03 05/07/24 01:01 05/07/24 01:01 05/07/24 01:01 05/07/24 00:45 05/07/24 00:40 05/07/24 00:40 05/07/24 00:36 05/07/24 00:36 05/07/24 00:34 60 05/07/24 00:30 05/07/24 00:17 05/07/24 00:16 05/07/24 00:09 Laboratory Results CBC and renal panel . Micro test Serology urine tests
--- NOTE | 2024-05-07 12:21 | Dialysis Progress Note ---
Date of Service May 07, 2024 Assessment & Plan Admission and Anticipated Discharge Date Admission Date: May 06, 2024 Subjective Assessment & Plan (1) ESRD (end stage renal disease) on dialysis: Today is her dialysis day and will do dialysis. However she is very very sick at this time--Acute resp failure on ventilator. BP is also much lower and needing Levophed. This makes her dialysis very challenging. Cautiously do dialysis with aim for 2 kilo fluid off. Will try to aim for SBP > 90 and titrate levophed as needed to achieve this. K and other lytes are normal range. CXR and CT shows e/o Pulm edema and pl eff and Multifocal pneumonia. will try to take whatever we can. may even need Dialysis again tomorrow for more fluid off. Do for 3hr 15 min and take 2 kilo off on 3k bath. No heparin and will give epo 10K units for Anemia of CKD (2) Acute on chronic hypoxic respiratory failure: has COpd 2with chronic o2 but now lot worse with Intubation and ventillator status currently. has some Pulm congestion also so will try to take some fluid off as allowed by BP. (3) Influenza A: Having severe presentation with this. Makes everything more difficult including Dialysis. S---Seen during Dialysis. On vent and needing levophed for BP support. AVF worked fine. Physical Exam Physical Exam: Constitutional: Sedated, mechanically ventilated. Respiratory: Bilateral mechanical breath sound Cardiovascular: RRR, no murmur, 1+ edema no JVD Chest: b/l Diminished. occ crackles Abdomen: normal bowel sounds, Skin: no rashes, warm and dry normal turgor Neurologic: Sedated Results & Data Vital Signs (Past 12 Hours) Vital Signs Temp Pulse Pulse Resp BP Pulse Ox O2 Del Method 05/07/24 12:01 124/51 L 05/07/24 12:00 36.5 C 57 L 16 97 Mechanical Vent 05/07/24 12:00 05/07/24 12:00 57 L 107/54 L 05/07/24 11:48 36.5 C 55 L 14 98 05/07/24 11:46 107/54 L 05/07/24 11:42 36.5 C 55 L 14 99 05/07/24 11:31 106/52 L 05/07/24 11:30 36.6 C 54 L 14 97 05/07/24 11:30 56 L 106/52 L 05/07/24 11:27 36.6 C 54 L 14 97 05/07/24 11:16 107/50 L 05/07/24 11:08 57 L 16 97 05/07/24 11:06 36.6 C 55 L 14 97 05/07/24 11:00 103/52 L 05/07/24 11:00 54 L 103/52 L 05/07/24 10:51 36.6 C 56 L 14 97 05/07/24 10:48 36.6 C 57 L 14 97 05/07/24 10:45 98/49 L 05/07/24 10:33 36.6 C 54 L 14 97 Mechanical Vent 05/07/24 10:30 94/47 L 05/07/24 10:30 53 L 94/47 L 05/07/24 10:27 36.5 C 53 L 14 97 05/07/24 10:15 53 L 104/47 L 05/07/24 10:15 104/47 L 05/07/24 10:06 36.6 C 52 L 14 97 05/07/24 10:01 99/43 L 05/07/24 10:00 36.7 C 52 L 14 96 05/07/24 10:00 50 L 99/43 L 05/07/24 09:57 103/41 L 05/07/24 09:56 51 L 103/41 L 05/07/24 09:51 36.7 C 52 L 14 95 05/07/24 09:48 36.7 C 52 L 14 95 05/07/24 09:46 105/52 L 05/07/24 09:36 36.7 C 53 L 14 94 05/07/24 09:30 36.7 C 53 L 14 94 05/07/24 09:30 36.7 C 53 L 05/07/24 09:16 99/37 L 05/07/24 09:15 36.8 C 53 L 14 94 05/07/24 09:00 Mechanical Vent 05/07/24 09:00 36.8 C 54 L 14 94 05/07/24 08:48 36.8 C 57 L 14 94 05/07/24 08:45 108/42 L 05/07/24 08:36 36.9 C 59 L 14 93 05/07/24 08:31 97/39 L 05/07/24 08:27 36.9 C 60 16 94 05/07/24 08:24 36.9 C 60 16 94 05/07/24 08:16 105/44 L 05/07/24 08:09 37.0 C 57 L 16 94 05/07/24 08:00 Mechanical Vent 05/07/24 08:00 05/07/24 08:00 120/52 L 05/07/24 08:00 51 L 05/07/24 07:54 37.0 C 53 L 0 L 95 05/07/24 07:46 108/46 L 05/07/24 07:45 37.1 C 55 L 16 95 Mechanical Vent 05/07/24 07:39 50 L 16 96 05/07/24 07:31 115/53 L 05/07/24 07:30 37.1 C 53 L 14 96 05/07/24 07:16 109/49 L 05/07/24 07:12 37.1 C 51 L 13 100 05/07/24 07:03 37.2 C 51 L 13 100 05/07/24 07:01 142/56 H 05/07/24 06:51 37.1 C 54 L 13 100 05/07/24 06:46 146/60 H 05/07/24 06:42 37.2 C 55 L 14 100 05/07/24 06:39 153/56 H 05/07/24 06:33 37.2 C 55 L 13 100 05/07/24 06:31 168/59 H 05/07/24 06:27 37.2 C 63 13 100 05/07/24 06:16 141/80 H 05/07/24 06:12 37.2 C 71 14 100 05/07/24 06:01 118/51 L 05/07/24 06:00 37.2 C 50 L 16 100 05/07/24 05:39 37.3 C 54 L 16 100 05/07/24 05:03 37.3 C 54 L 14 99 05/07/24 05:01 118/40 L 05/07/24 05:01 118/40 L 05/07/24 05:01 118/40 L 05/07/24 05:01 118/40 L 05/07/24 04:57 37.3 C 54 L 14 100 05/07/24 04:51 123/55 L 05/07/24 04:51 123/55 L 05/07/24 04:51 37.3 C 53 L 14 97 05/07/24 04:41 124/53 L 05/07/24 04:33 37.2 C 56 L 14 97 05/07/24 04:31 120/63 05/07/24 04:31 120/63 05/07/24 04:31 120/63 05/07/24 04:27 37.2 C 58 L 14 96 05/07/24 04:25 120/56 L 05/07/24 04:25 120/56 L 05/07/24 04:24 37.1 C 57 L 14 96 05/07/24 04:15 136/60 05/07/24 04:03 189/54 H 05/07/24 04:00 05/07/24 03:57 37.0 C 66 14 98 05/07/24 03:55 181/70 H 05/07/24 03:55 181/70 H 05/07/24 03:54 37.0 C 60 14 05/07/24 03:38 58 L 16 95 05/07/24 03:33 37.0 C 61 14 97 05/07/24 03:18 86/28 L 05/07/24 03:15 37.0 C 60 13 94 05/07/24 03:01 131/51 L 05/07/24 03:00 36.9 C 59 L 14 97 05/07/24 02:58 126/50 L 05/07/24 02:58 126/50 L 05/07/24 02:57 36.9 C 60 16 97 05/07/24 02:33 36.8 C 63 16 100 05/07/24 02:31 161/63 H 05/07/24 02:31 161/63 H 05/07/24 02:18 36.8 C 61 16 100 05/07/24 02:03 36.8 C 57 L 16 99 05/07/24 02:01 136/50 L 05/07/24 02:01 136/50 L 05/07/24 02:01 136/50 L 05/07/24 02:01 136/50 L 05/07/24 02:01 136/50 L 05/07/24 02:00 36.8 C 59 L 16 100 05/07/24 01:33 36.7 C 60 16 100 05/07/24 01:31 169/63 H 05/07/24 01:31 169/63 H 05/07/24 01:31 169/63 H 05/07/24 01:31 169/63 H 05/07/24 01:17 153/51 H 05/07/24 01:06 36.8 C 58 L 16 100 05/07/24 01:06 117/47 L 05/07/24 01:06 117/47 L 05/07/24 01:06 117/47 L 05/07/24 01:06 117/47 L 05/07/24 01:03 36.8 C 56 L 16 98 05/07/24 01:01 99/46 L 05/07/24 01:01 99/46 L 05/07/24 01:01 106/46 L 05/07/24 00:45 36.8 C 57 L 16 98 05/07/24 00:40 109/48 L 05/07/24 00:40 109/48 L 05/07/24 00:36 97/44 L 05/07/24 00:36 97/44 L 05/07/24 00:34 60 17 6 L 05/07/24 00:30 36.8 C 62 16 97 O2 Flow Rate FiO2 05/07/24 12:01 05/07/24 12:00 40 05/07/24 12:00 40 05/07/24 12:00 05/07/24 11:48 05/07/24 11:46 05/07/24 11:42 05/07/24 11:31 05/07/24 11:30 05/07/24 11:30 05/07/24 11:27 05/07/24 11:16 05/07/24 11:08 40 05/07/24 11:06 05/07/24 11:00 05/07/24 11:00 05/07/24 10:51 05/07/24 10:48 05/07/24 10:45 05/07/24 10:33 40 05/07/24 10:30 05/07/24 10:30 05/07/24 10:27 05/07/24 10:15 05/07/24 10:15 05/07/24 10:06 05/07/24 10:01 05/07/24 10:00 05/07/24 10:00 05/07/24 09:57 05/07/24 09:56 05/07/24 09:51 05/07/24 09:48 05/07/24 09:46 05/07/24 09:36 05/07/24 09:30 05/07/24 09:30 05/07/24 09:16 05/07/24 09:15 05/07/24 09:00 40 05/07/24 09:00 05/07/24 08:48 05/07/24 08:45 05/07/24 08:36 05/07/24 08:31 05/07/24 08:27 05/07/24 08:24 05/07/24 08:16 05/07/24 08:09 05/07/24 08:00 05/07/24 08:00 60 05/07/24 08:00 05/07/24 08:00 05/07/24 07:54 05/07/24 07:46 05/07/24 07:45 60 05/07/24 07:39 40 05/07/24 07:31 05/07/24 07:30 05/07/24 07:16 05/07/24 07:12 05/07/24 07:03 05/07/24 07:01 05/07/24 06:51 05/07/24 06:46 05/07/24 06:42 05/07/24 06:39 05/07/24 06:33 05/07/24 06:31 05/07/24 06:27 05/07/24 06:16 05/07/24 06:12 05/07/24 06:01 05/07/24 06:00 05/07/24 05:39 05/07/24 05:03 05/07/24 05:01 05/07/24 05:01 05/07/24 05:01 05/07/24 05:01 05/07/24 04:57 05/07/24 04:51 05/07/24 04:51 05/07/24 04:51 05/07/24 04:41 05/07/24 04:33 05/07/24 04:31 05/07/24 04:31 05/07/24 04:31 05/07/24 04:27 05/07/24 04:25 05/07/24 04:25 05/07/24 04:24 05/07/24 04:15 05/07/24 04:03 05/07/24 04:00 60 05/07/24 03:57 05/07/24 03:55 05/07/24 03:55 05/07/24 03:54 05/07/24 03:38 60 05/07/24 03:33 05/07/24 03:18 05/07/24 03:15 05/07/24 03:01 05/07/24 03:00 05/07/24 02:58 05/07/24 02:58 05/07/24 02:57 05/07/24 02:33 05/07/24 02:31 05/07/24 02:31 05/07/24 02:18 05/07/24 02:03 05/07/24 02:01 05/07/24 02:01 05/07/24 02:01 05/07/24 02:01 05/07/24 02:01 05/07/24 02:00 05/07/24 01:33 05/07/24 01:31 05/07/24 01:31 05/07/24 01:31 05/07/24 01:31 05/07/24 01:17 05/07/24 01:06 05/07/24 01:06 05/07/24 01:06 05/07/24 01:06 05/07/24 01:06 05/07/24 01:03 05/07/24 01:01 05/07/24 01:01 05/07/24 01:01 05/07/24 00:45 05/07/24 00:40 05/07/24 00:40 05/07/24 00:36 05/07/24 00:36 05/07/24 00:34 60 05/07/24 00:30
--- NOTE | 2024-05-07 12:40 | Electrocardiogram Report ---
Test Reason : Blood Pressure : */* mmHG Vent. Rate : 45 BPM Atrial Rate : 45 BPM P-R Int : 186 ms QRS Dur : 152 ms QT Int : 530 ms P-R-T Axes : 43 19 70 degrees QTcB Int : 458 ms Sinus bradycardia with sinus arrhythmia with occasional Premature ventricular complexes Left bundle branch block Abnormal ECG When compared with ECG of 17-Feb-2024 09:40, T wave amplitude has decreased in Anterior leads QT has shortened Confirmed by Jhony Raymond ([id number]) on 05/07/2024 12:40:02 PM Referred By: Neel Robertson Confirmed By: Jhony Raymond
--- NOTE | 2024-05-07 13:03 | Pharmacy Report ---
Pharmacy PK ABX Note - Date of Service May 07, 2024 - Assessment and Plan Assessment 78 year old F receiving VANCOMYCIN/ZOSYN for treatment of possible secondary bacterial pneumonia with influenza A . Pertinent microbiologic data includes: Positive MRSA Nasal Swab, Sputum, blood, urine cultures all pending. WBC 13.42. Afebrile. Intubated 05/06 for encephalopathy, requiring pressors. Patient with ESRD on dialysis MWF. Planned for dialysis today, however given status may r equire shortened course today. Possible dialysis again tomorrow pending fluid removal today. Random level was obtained this morning as a pre-dialysis level, returned 36.7 mcg/mL. This was drawn ~ 2 hours after load was finished infusing and indicative of a peak. Anticipate therapeutic level after dialysis today but will obtain additional level in the AM in the even dialysis is performed again tomorrow. No additional dose today. Plan Vancomycin * Loading dose: 2000 mg IV x 1 * Maintenance dose: DOSE BY LEVELS- HD * Random level (peak) today 36.7 mcg/mL- predict levels will remain therapeutic after dialysis today, no redose today * Random level ordered with AM labs 05/08 Pharmacy will continue to follow and will adjust dose/frequency as necessary. Thank you. Pharmacy has transitioned to AUC monitoring for vancomycin. AUC/MOOK is the preferred PK/PD target and is associated with decreased risk of nephrotoxicity compared to traditional trough targets.
[2024-05-07] MEDS: fentaNYL BOLUS from BAG IV PRN (13:44)
[2024-05-07] MEDS: OSELTAMIVIR PHOSPHATE SUSP 30 MG/5 ML UDP PO PRN (13:44)
--- NOTE | 2024-05-07 15:14 | Hospitalist Progress Note ---
Date of Service May 07, 2024 Assessment & Plan (1) Acute hypoxemic respiratory failure: (2) Acute metabolic encephalopathy: (3) Influenza A: Plan Patient is a 78-year-old female with past medical history of ESRD on hemodialysis, COPD on 3 L of oxygen, Parkinson's disease, hypothyroidism, type 2 diabetes mellitus, RENÉ, hyperlipidemia, generalized anxiety disorder who was sent from [facility] after she was found to be confused and short of breath. Acute on chronic hypoxic respiratory failure Acute metabolic encephalopathy Influenza A Possible pneumonia --Chest CT:Accounting for respiratory artifact, there are subtle patchy opacities in the posterior right upper lobe, the superior and medial basal segment of the right lower lobe. Less prominent changes are noted involving the inferior aspect of the left upper lobe and the medial basal segment of the left lower lobe. These are all new from the previous examination. Multifocal pneumonia is not excluded. -- BioFire positive for influenza A -Procalcitonin 2.4 Nasal MRSA positive -Blood cultures pending -Urine cultures pending Continue Tamiflu-empirically on Zosyn, vancomycin -- Appreciate critical care input Pressure management, vent management per ICU team Elevated troponin, Type II NH Likely demand ischemia secondary to above in setting of end-stage renal disease Less likely ACS Monitor End-stage renal disease Continue dialysis per nephrology Appreciate nephrology input Chronic conditions: Parkinson's disease; continue on carbidopa/levodopa Hypothyroidism; continue levothyroxine RENÉ on CPAP; currently intubated Orthostatic Hypotension; continue on midodrine CODE STATUS Full code DVT Px: Heparin SQ Admission and Anticipated Discharge Date Admission Date: May 06, 2024 Subjective Patient is seen and examined at bedside Currently sedated and intubated On pressors Unable to obtain any history No family at bedside Discussed with ICU team Review of Systems Review of Systems: Unobtainable due to endotracheal tube Physical Exam Physical Exam: Physical Exam: Vitals signs as noted above General Appearance:Obese, no apparent distress, sedated and Intubated Head: normocephalic, Atraumatic Eyes: normal inspection, EOMI Neck: supple, Trachea midline Respiratory/Chest: Normal breath sounds, CTA, No accessory muscle use Cardiovascular: S1, S2, No murmur Abdomen/GI:Soft, Non tender, Bowel sounds present Extremities/Musculoskeletal:normal inspection, no edema Neurologic/Psych: Sedated and intubated, unable to perform complete neurological exam Skin: normal color, warm Results & Data Results & Data Vital Signs (Past 12 Hours) Vital Signs Temp Pulse Pulse Resp BP BP Pulse Ox 05/07/24 14:45 36.8 C 68 16 93 05/07/24 14:33 36.7 C 102 H 16 92 05/07/24 14:27 36.8 C 72 16 100 05/07/24 14:24 36.7 C 74 15 100 05/07/24 14:03 36.6 C 89 16 100 05/07/24 14:01 135/90 05/07/24 13:51 36.5 C 96 H 13 100 05/07/24 13:46 115/86 05/07/24 13:36 36.5 C 95 H 13 100 05/07/24 13:36 77 25 H 97 05/07/24 13:33 36.5 C 58 L 14 96 05/07/24 13:31 104/55 L 05/07/24 13:25 36.5 C 54 L 115/40 L 05/07/24 13:24 36.5 C 51 L 14 96 05/07/24 13:21 91/41 L 05/07/24 13:21 36.6 C 51 L 16 95 05/07/24 13:19 89/36 L 05/07/24 13:15 36.6 C 51 L 16 98 05/07/24 13:00 36.5 C 56 L 17 97 05/07/24 13:00 56 L 95/55 L 05/07/24 12:57 36.5 C 54 L 15 97 05/07/24 12:46 95/55 L 05/07/24 12:42 36.6 C 53 L 16 97 05/07/24 12:33 36.6 C 55 L 16 97 05/07/24 12:31 110/44 L 05/07/24 12:30 56 L 120/58 L 05/07/24 12:24 36.5 C 56 L 16 97 05/07/24 12:09 36.5 C 56 L 16 98 05/07/24 12:01 124/51 L 05/07/24 12:00 36.5 C 57 L 16 97 05/07/24 12:00 05/07/24 12:00 57 L 107/54 L 05/07/24 11:48 36.5 C 55 L 14 98 05/07/24 11:46 107/54 L 05/07/24 11:42 36.5 C 55 L 14 99 05/07/24 11:31 106/52 L 05/07/24 11:30 36.6 C 54 L 14 97 05/07/24 11:30 56 L 106/52 L 05/07/24 11:27 36.6 C 54 L 14 97 05/07/24 11:16 107/50 L 05/07/24 11:08 57 L 16 97 05/07/24 11:06 36.6 C 55 L 14 97 05/07/24 11:00 103/52 L 05/07/24 11:00 54 L 103/52 L 05/07/24 10:51 36.6 C 56 L 14 97 05/07/24 10:48 36.6 C 57 L 14 97 05/07/24 10:45 98/49 L 05/07/24 10:33 36.6 C 54 L 14 97 05/07/24 10:30 94/47 L 05/07/24 10:30 53 L 94/47 L 05/07/24 10:27 36.5 C 53 L 14 97 05/07/24 10:15 53 L 104/47 L 05/07/24 10:15 104/47 L 05/07/24 10:06 36.6 C 52 L 14 97 05/07/24 10:01 99/43 L 05/07/24 10:00 36.7 C 52 L 14 96 05/07/24 10:00 50 L 99/43 L 05/07/24 09:57 103/41 L 05/07/24 09:56 51 L 103/41 L 05/07/24 09:51 36.7 C 52 L 14 95 05/07/24 09:48 36.7 C 52 L 14 95 05/07/24 09:46 105/52 L 05/07/24 09:36 36.7 C 53 L 14 94 05/07/24 09:30 36.7 C 53 L 14 94 05/07/24 09:30 36.7 C 53 L 05/07/24 09:16 99/37 L 05/07/24 09:15 36.8 C 53 L 14 94 05/07/24 09:00 05/07/24 09:00 36.8 C 54 L 14 94 05/07/24 08:48 36.8 C 57 L 14 94 05/07/24 08:45 108/42 L 05/07/24 08:36 36.9 C 59 L 14 93 05/07/24 08:31 97/39 L 05/07/24 08:27 36.9 C 60 16 94 05/07/24 08:24 36.9 C 60 16 94 05/07/24 08:16 105/44 L 05/07/24 08:09 37.0 C 57 L 16 94 05/07/24 08:00 05/07/24 08:00 05/07/24 08:00 120/52 L 05/07/24 08:00 51 L 05/07/24 07:54 37.0 C 53 L 0 L 95 05/07/24 07:46 108/46 L 05/07/24 07:45 37.1 C 55 L 16 95 05/07/24 07:39 50 L 16 96 05/07/24 07:31 115/53 L 05/07/24 07:30 37.1 C 53 L 14 96 05/07/24 07:16 109/49 L 05/07/24 07:12 37.1 C 51 L 13 100 05/07/24 07:03 37.2 C 51 L 13 100 05/07/24 07:01 142/56 H 05/07/24 06:51 37.1 C 54 L 13 100 05/07/24 06:46 146/60 H 05/07/24 06:42 37.2 C 55 L 14 100 05/07/24 06:39 153/56 H 05/07/24 06:33 37.2 C 55 L 13 100 05/07/24 06:31 168/59 H 05/07/24 06:27 37.2 C 63 13 100 05/07/24 06:16 141/80 H 05/07/24 06:12 37.2 C 71 14 100 05/07/24 06:01 118/51 L 05/07/24 06:00 37.2 C 50 L 16 100 05/07/24 05:39 37.3 C 54 L 16 100 05/07/24 05:03 37.3 C 54 L 14 99 05/07/24 05:01 118/40 L 05/07/24 05:01 118/40 L 05/07/24 05:01 118/40 L 05/07/24 05:01 118/40 L 05/07/24 04:57 37.3 C 54 L 14 100 05/07/24 04:51 123/55 L 05/07/24 04:51 123/55 L 05/07/24 04:51 37.3 C 53 L 14 97 05/07/24 04:41 124/53 L 05/07/24 04:33 37.2 C 56 L 14 97 05/07/24 04:31 120/63 05/07/24 04:31 120/63 05/07/24 04:31 120/63 05/07/24 04:27 37.2 C 58 L 14 96 05/07/24 04:25 120/56 L 05/07/24 04:25 120/56 L 05/07/24 04:24 37.1 C 57 L 14 96 05/07/24 04:15 136/60 05/07/24 04:03 189/54 H 05/07/24 04:00 05/07/24 03:57 37.0 C 66 14 98 05/07/24 03:55 181/70 H 05/07/24 03:55 181/70 H 05/07/24 03:54 37.0 C 60 14 05/07/24 03:38 58 L 16 95 05/07/24 03:33 37.0 C 61 14 97 05/07/24 03:18 86/28 L 05/07/24 03:15 37.0 C 60 13 94 O2 Del Method O2 Flow Rate FiO2 05/07/24 14:45 05/07/24 14:33 Mechanical Vent 30 05/07/24 14:27 05/07/24 14:24 05/07/24 14:03 05/07/24 14:01 05/07/24 13:51 05/07/24 13:46 05/07/24 13:36 05/07/24 13:36 Mechanical Vent 40 05/07/24 13:33 05/07/24 13:31 05/07/24 13:25 05/07/24 13:24 05/07/24 13:21 05/07/24 13:21 05/07/24 13:19 05/07/24 13:15 05/07/24 13:00 05/07/24 13:00 05/07/24 12:57 05/07/24 12:46 05/07/24 12:42 05/07/24 12:33 05/07/24 12:31 05/07/24 12:30 05/07/24 12:24 05/07/24 12:09 05/07/24 12:01 05/07/24 12:00 Mechanical Vent 40 05/07/24 12:00 40 05/07/24 12:00 05/07/24 11:48 05/07/24 11:46 05/07/24 11:42 05/07/24 11:31 05/07/24 11:30 05/07/24 11:30 05/07/24 11:27 05/07/24 11:16 05/07/24 11:08 40 05/07/24 11:06 05/07/24 11:00 05/07/24 11:00 05/07/24 10:51 05/07/24 10:48 05/07/24 10:45 05/07/24 10:33 Mechanical Vent 40 05/07/24 10:30 05/07/24 10:30 05/07/24 10:27 05/07/24 10:15 05/07/24 10:15 05/07/24 10:06 05/07/24 10:01 05/07/24 10:00 05/07/24 10:00 05/07/24 09:57 05/07/24 09:56 05/07/24 09:51 05/07/24 09:48 05/07/24 09:46 05/07/24 09:36 05/07/24 09:30 05/07/24 09:30 05/07/24 09:16 05/07/24 09:15 05/07/24 09:00 Mechanical Vent 40 05/07/24 09:00 05/07/24 08:48 05/07/24 08:45 05/07/24 08:36 05/07/24 08:31 05/07/24 08:27 05/07/24 08:24 05/07/24 08:16 05/07/24 08:09 05/07/24 08:00 Mechanical Vent 05/07/24 08:00 60 05/07/24 08:00 05/07/24 08:00 05/07/24 07:54 05/07/24 07:46 05/07/24 07:45 Mechanical Vent 60 05/07/24 07:39 40 05/07/24 07:31 05/07/24 07:30 05/07/24 07:16 05/07/24 07:12 05/07/24 07:03 05/07/24 07:01 05/07/24 06:51 05/07/24 06:46 05/07/24 06:42 05/07/24 06:39 05/07/24 06:33 05/07/24 06:31 05/07/24 06:27 05/07/24 06:16 05/07/24 06:12 05/07/24 06:01 05/07/24 06:00 05/07/24 05:39 05/07/24 05:03 05/07/24 05:01 05/07/24 05:01 05/07/24 05:01 05/07/24 05:01 05/07/24 04:57 05/07/24 04:51 05/07/24 04:51 05/07/24 04:51 05/07/24 04:41 05/07/24 04:33 05/07/24 04:31 05/07/24 04:31 05/07/24 04:31 05/07/24 04:27 05/07/24 04:25 05/07/24 04:25 05/07/24 04:24 05/07/24 04:15 05/07/24 04:03 05/07/24 04:00 60 05/07/24 03:57 05/07/24 03:55 05/07/24 03:55 05/07/24 03:54 05/07/24 03:38 60 05/07/24 03:33 05/07/24 03:18 05/07/24 03:15 Laboratory Results Short CBC 05/06/24 05/07/24 Range/Units 18:57 04:14 WBC 12.35 H 13.42 H (4.8-10.8) K/ul Hgb 9.7 L 9.6 L (12.0-16.0) g/dl Hct 29.7 L 29.2 L (37.0-47.0) % Plt Count 185 190 (130-400) K/uL BMP 05/06/24 05/07/24 18:57 04:14 Sodium 138 137 Potassium 4.2 3.9 Chloride 94 L 94 L Carbon Dioxide 33 H 28 BUN 34 H 41 H Creatinine 5.87 H* 6.35 H* D Glucose 139 H 193 H Calcium 9.5 9.3 Liver Function 05/06/24 05/07/24 Range/Units 18:57 04:14 Total Bilirubin 0.4 0.4 (0.2-1.0) mg/dl Direct Bilirubin 0.1 (0-0.2) mg/dl AST 31 29 (13-39) U/L ALT 8 8 (7-52) U/L Alkaline Phosphatase 83 81 (34-104) U/L Albumin 3.9 3.9 (3.4-5.0) gm/dl Urine 05/06/24 Range/Units 20:45 Urine Color Dark Yellow Urine Appearance Turbid A (Clear) Urine pH 8.5 H (4.5-7.5) Ur Specific [place] 1.015 (1.000-1.030) Urine Protein 3+ H (Negative) Urine Glucose (UA) Negative (Negative)
[2024-05-07] MEDS ORDERED: MELATONIN 3 MG TAB PO SCH (21:00)
[2024-05-07] MEDS: ATORVASTATIN 40 MG TAB PO SCH (22:05)
[2024-05-08 05:08] LABS: iSTAT Allen Test Pass; iSTAT Art Bld Gas pCO2 Correct 44 mmHg (35-46); iSTAT Art Bld Gas pH Corrected 7.437 (7.35-7.45); iSTAT Arterial Blood Gas HCO3 30 meg/L (19-24); iSTAT Arterial Blood Gas pCO2 44 mmHg (35-46); iSTAT Arterial Blood Gas pH 7.44 (7.35-7.45); iSTAT Arterial Blood Gas pO2 64 mmHg (80-95); iSTAT Arterial Blood Gas pO2 C 64; iSTAT Carbon Dioxide 31 mmol/L (24-31); iSTAT FiO2 30 %; iSTAT Hematocrit 31 % (37-47); iSTAT Hemoglobin 10.5 g/dl (12.0-16.0); iSTAT Potassium 3.6 mmol/L (3.3-5.0); iSTAT Sample Type Arterial; iSTAT Site L Radial; iSTAT Sodium 132 mmol/L (135-144); iSTAT SpO2 92
[2024-05-08 05:20] LABS: Basophils # (auto) 0.04 K/uL (0.00-0.20); Basophils % (auto) 0.3 %; Eosinophils # (auto) 0.02 K/uL (0.00-0.50); Eosinophils % (auto) 0.1 %; Hematocrit (blood only) 28.8 % (37.0-47.0); Hemoglobin 9.4 g/dl (12.0-16.0); Immature Granulocytes # (auto) 0.36 K/uL (0.01-0.20); Immature Granulocytes % (auto) 2.6 %; Lymphocytes # (auto) 1.29 K/uL (1.20-3.40); Lymphocytes % (auto) 9.4 %; Mean Corpuscular Hemoglobin 33.3 pg (25.0-34.0); Mean Corpuscular Hgb Conc 32.6 g/dL (32.0-36.0); Mean Corpuscular Volume 102.1 fL (80.0-100.0); Mean Platelet Volume 10.6 fL (9.4-12.4); Neutrophils # (auto) 10.98 K/uL (1.40-6.50); Neutrophils % (auto) 79.6 %; Platelet Count 230 K/uL (130-400); RDW Coefficient of Variation 14.8 % (11.5-14.5); RDW Standard Deviation 55.8 fL (36.4-46.3); Red Blood Count 2.82 M/uL (4.20-5.40); White Blood Count 13.79 K/ul (4.8-10.8)
[2024-05-08 05:25] LABS: Albumin Level 3.8 gm/dl (3.4-5.0); Bilirubin Direct 0.1 mg/dl (0-0.2); Bilirubin,Total 0.4 mg/dl (0.2-1.0); Calcium 9.5 mg/dl (8.6-10.3); Creatinine Clr Calc Pharmacy 12.5 ml/min; Magnesium 1.9 mg/dl (1.7-2.4); Phosphorus 4.1 mg/dl (2.5-4.9); Potassium 3.7 mmol/L (3.5-5.1); Total Protein 7.4 gm/dl (6.0-8.3)
--- NOTE | 2024-05-08 08:12 | Critical Care Progress Note ---
Date of Service May 08, 2024 Assessment & Plan (1) Sepsis: (2) Acute hypoxemic respiratory failure: (3) Pneumonia: (4) Influenza A: (5) Acute metabolic encephalopathy: (6) Multifocal pneumonia: (7) Acute encephalopathy: Plan Reason Critically Ill: 1. Acute on chronic hypoxemic respiratory failure 2/2 #2 and limited respiratory reserve 2. Influenza A/superimposed bacterial infection 3. Metabolic encephalopathy 4. Possible UTI 5. Sepsis 6. NSTEMI, type II Neuro - RASS GOAL 0 to -1 if unable to be extubated APAP PRN pain/fever Sedation vacation today. Sinemet Continue home SSRI. Hold Lyrica for now Cardiac - EKG sinus with PVCs, non-ischemic. Mildly prolonged QTc. Mild elevation troponin likely secondary NSTEMI. Recheck troponins today given ongoing hypoxemia and hypotension. Obtaining echo. Prior echo in 2022 with a normal EF. Continue statin Continue midodrine. As needed Levophed to maintain maps above 65 mmHg. Respiratory - Schedule DuoNeb, Albuterol PRN SpO2 goal 88-92% SAT/SBT daily Patient with influenza pneumonia and likely superimposed bacterial pneumonia. Repeat chest x-ray today. Chest x-ray from yesterday and CT chest from 05/06/2024 with multifocal pneumonia. GI - Diet: If unable to be extubated today. Will start tube feeds. SUP: PPI Bowel regimen: Miralax RENAL/LYTES - Nephrology consult for iHD, appreciate recommendations Replete electrolytes as indicated Positive fluid status. May need more urgent dialysis patient becomes more hypoxemic although at this time she is fairly stable. ENDO - Continue levothyroxine. Check TSH today given encephalopathy on admission. BG 140-180 per [facility] guidelines ISS if needed while inpatient HEME - Patient with likely anemia of chronic disease. Macrocytosis noted. Will need further workup as an outpatient. ID - Continue vancomycin and Zosyn. MRSA screen was positive on admission. Sputum culture is pending. Continue intermittent dosing of Tamiflu given hemodialysis. LINES/TUBES/DRAINS - PIV x2 [place] removed yesterday. ETT OGT DVT PROPHYLAXIS - SQH I have personally spent 39 minutes of critical care time in the direct management of this patient. This is a life/limb threatening event. This includes time spent evaluating patient, direct bedside care, chart review, placing orders, interpretation of diagnostic studies, discussion with consultants, patient, and family members, as well as other required patient management activities. This time is exclusive of all separately billable procedures, and teaching time and separate from and in addition to any other critical care service time. Thank you for allowing us to participate in the care of this patient. Please refer to my attending physician's documentation for any further recommendations. Admission and Anticipated Discharge Date Admission Date: May 06, 2024 Subjective Patient seen examined. Upon my evaluation, the patient was on propofol fentanyl heavily sedated. She is on low-dose Levophed at this time. She does open her eyes spontaneously. No significant overnight events. Will proceed with a sedation vacation and reevaluate. Review of Systems Review of Systems: Unobtainable due to endotracheal tube and Unobtainable due to reduced consciousness Physical Exam Physical Exam: Constitutional: Morbidly obese. Intubated and sedated. Eyes: Pupils small and mildly reactive to light. Ears nose, mouth and throat: Endotracheal tube in place. Neck: Trachea is midline. Visual inspection is normal. Respiratory: Bilateral rhonchi. Diminishment bilaterally. Cardiovascular: Regular rate and rhythm. No murmurs. 1+ edema in the lower extremities. Gastrointestinal: Normal bowel sounds, soft, nontender and nondistended. No hepatosplenomegaly noted. OG tube in place draining brown liquid. Musculoskeletal: Diffusely weak. Moves extremities spontaneously. Skin: No rashes, warm dry and intact. Neurologic: No obvious focal neurological deficits seen, however difficult to assess given sedation status. Psychiatric: Unable to fully assess given sedation status. Results & Data Results & Data Vital Signs (Past 12 Hours) Vital Signs Temp Pulse Resp BP Pulse Ox Pulse Ox O2 Del Method 05/08/24 07:30 109/39 L 05/08/24 07:30 37.2 C 66 16 94 05/08/24 07:01 129/44 L 05/08/24 07:00 37.2 C 66 16 93 05/08/24 06:30 142/52 H 05/08/24 06:24 37.3 C 69 21 97 05/08/24 06:22 146/49 H 05/08/24 06:21 37.3 C 70 22 99 05/08/24 06:18 37.3 C 72 18 100 05/08/24 06:03 37.4 C 64 14 94 05/08/24 05:36 37.4 C 66 14 94 05/08/24 05:33 87/35 L 05/08/24 05:21 37.4 C 67 14 94 05/08/24 05:16 111/42 L 05/08/24 05:15 37.4 C 67 14 93 05/08/24 05:12 37.4 C 67 14 93 05/08/24 05:01 143/52 H 05/08/24 05:01 143/52 H 05/08/24 04:57 37.4 C 80 15 92 05/08/24 04:46 131/60 05/08/24 04:45 37.3 C 72 14 93 05/08/24 04:36 37.3 C 70 13 91 05/08/24 04:21 37.2 C 75 14 94 05/08/24 04:16 168/61 H 05/08/24 04:12 37.2 C 95 H 12 100 05/08/24 04:01 143/55 H 05/08/24 04:00 05/08/24 03:42 37.1 C 68 14 92 05/08/24 03:40 71 16 91 05/08/24 03:39 37.1 C 68 14 92 05/08/24 03:31 119/54 L 05/08/24 03:16 122/42 L 05/08/24 03:12 37.1 C 68 14 94 05/08/24 02:33 37.1 C 68 14 94 05/08/24 02:30 129/41 L 05/08/24 02:30 129/41 L 05/08/24 02:21 37.1 C 68 14 95 05/08/24 02:16 129/41 L 05/08/24 02:06 37.1 C 69 14 95 05/08/24 02:00 137/43 L 05/08/24 01:54 37.2 C 69 14 96 05/08/24 01:31 102/34 L 05/08/24 01:31 102/34 L 05/08/24 01:30 37.3 C 68 16 94 05/08/24 01:16 138/46 L 05/08/24 01:16 138/46 L 05/08/24 01:16 138/46 L 05/08/24 01:15 37.3 C 70 16 95 05/08/24 01:01 125/42 L 05/08/24 00:57 37.3 C 70 14 96 05/08/24 00:46 124/40 L 05/08/24 00:39 37.3 C 69 16 92 05/08/24 00:31 128/38 L 05/08/24 00:15 127/42 L 05/08/24 00:15 127/42 L 05/08/24 00:03 37.3 C 69 16 94 05/08/24 00:01 96/33 L 05/08/24 00:01 96/33 L 05/08/24 00:01 96/33 L 05/08/24 00:00 69 05/08/24 00:00 05/07/24 23:42 37.4 C 71 16 95 05/07/24 23:30 103/35 L 05/07/24 23:30 103/35 L 05/07/24 23:15 107/35 L 05/07/24 23:15 107/35 L 05/07/24 23:09 37.4 C 70 16 93 05/07/24 23:00 113/37 L 05/07/24 23:00 37.4 C 67 16 92 05/07/24 22:45 113/37 L 05/07/24 22:45 113/37 L 05/07/24 22:45 113/37 L 05/07/24 22:39 37.4 C 69 16 93 05/07/24 22:33 37.4 C 68 16 92 05/07/24 22:31 89/30 L 05/07/24 22:27 37.4 C 69 16 92 05/07/24 22:20 63 16 93 05/07/24 22:00 118/34 L 05/07/24 22:00 118/34 L 05/07/24 22:00 118/34 L 05/07/24 22:00 118/34 L 05/07/24 22:00 37.4 C 71 16 93 05/07/24 21:45 37.3 C 76 16 93 05/07/24 21:45 110/38 L 05/07/24 21:45 110/38 L 05/07/24 21:40 110/65 05/07/24 21:40 110/65 05/07/24 21:36 37.3 C 81 17 93 05/07/24 21:31 112/33 L 05/07/24 21:18 37.3 C 73 16 95 05/07/24 21:16 111/42 L 05/07/24 21:16 111/42 L 05/07/24 21:16 111/42 L 05/07/24 21:16 111/42 L 05/07/24 21:16 111/42 L 05/07/24 21:11 95 Mechanical Vent 05/07/24 21:09 37.3 C 71 17 96 05/07/24 21:01 152/43 H 05/07/24 21:01 152/43 H 05/07/24 21:00 37.3 C 73 18 98 05/07/24 20:46 134/49 L 05/07/24 20:46 134/49 L 05/07/24 20:36 37.2 C 71 16 95 05/07/24 20:31 146/60 H 05/07/24 20:19 66 16 92 FiO2 05/08/24 07:30 05/08/24 07:30 05/08/24 07:01 05/08/24 07:00 05/08/24 06:30 05/08/24 06:24 05/08/24 06:22 05/08/24 06:21 05/08/24 06:18 05/08/24 06:03 05/08/24 05:36 05/08/24 05:33 05/08/24 05:21 05/08/24 05:16 05/08/24 05:15 05/08/24 05:12 05/08/24 05:01 05/08/24 05:01 05/08/24 04:57 05/08/24 04:46 05/08/24 04:45 05/08/24 04:36 05/08/24 04:21 05/08/24 04:16 05/08/24 04:12 05/08/24 04:01 05/08/24 04:00 30 05/08/24 03:42 05/08/24 03:40 30 05/08/24 03:39 05/08/24 03:31 05/08/24 03:16 05/08/24 03:12 05/08/24 02:33 05/08/24 02:30 05/08/24 02:30 05/08/24 02:21 05/08/24 02:16 05/08/24 02:06 05/08/24 02:00 05/08/24 01:54 05/08/24 01:31 05/08/24 01:31 05/08/24 01:30 05/08/24 01:16 05/08/24 01:16 05/08/24 01:16 05/08/24 01:15 05/08/24 01:01 05/08/24 00:57 05/08/24 00:46 05/08/24 00:39 05/08/24 00:31 05/08/24 00:15 05/08/24 00:15 05/08/24 00:03 05/08/24 00:01 05/08/24 00:01 05/08/24 00:01 05/08/24 00:00 05/08/24 00:00 30 05/07/24 23:42 05/07/24 23:30 05/07/24 23:30 05/07/24 23:15 05/07/24 23:15 05/07/24 23:09 05/07/24 23:00 05/07/24 23:00 05/07/24 22:45 05/07/24 22:45 05/07/24 22:45 05/07/24 22:39 05/07/24 22:33 05/07/24 22:31 05/07/24 22:27 05/07/24 22:20 30 05/07/24 22:00 05/07/24 22:00 05/07/24 22:00 05/07/24 22:00 05/07/24 22:00 05/07/24 21:45 05/07/24 21:45 05/07/24 21:45 05/07/24 21:40 05/07/24 21:40 05/07/24 21:36 05/07/24 21:31 05/07/24 21:18 05/07/24 21:16 05/07/24 21:16 05/07/24 21:16 05/07/24 21:16 05/07/24 21:16 05/07/24 21:11 05/07/24 21:09 05/07/24 21:01 05/07/24 21:01 05/07/24 21:00 05/07/24 20:46 05/07/24 20:46 05/07/24 20:36 05/07/24 20:31 05/07/24 20:19 30 Coding Level of Care Code 26920 CRITICAL CARE 1ST 30-74M Diagnoses Sepsis A41.9 Acute hypoxemic respiratory failure J96.01 Pneumonia J18.9 Influenza A J10.1 Acute metabolic encephalopathy G93.41 Multifocal pneumonia J18.9 Acute encephalopathy G93.40
--- NOTE | 2024-05-08 09:02 | XRay Report ---
EXAM: Radiograph of the Chest 1 View INDICATION: Assess lines. TECHNIQUE: Frontal view of the chest. COMPARISON: 05/07/2024 FINDINGS: Lungs and pleural spaces: Significantly improved basilar ventilation with mild residual linear atelectasis. Slight increased vascular congestion. Heart: Stable large cardiac shadow. Mediastinum: Normal contour. Bones/joints: No fracture, erosion or dislocation. Soft tissues: No abnormality noted. No radiopaque foreign body noted. Vasculature: Radiopaque tip of the intra-aortic balloon pump projects in the proximal descending aorta. Tubes, lines and devices: The endotracheal tube terminates 3.7 cm above the rusty. Nasogastric tube below the diaphragm. The tip is not included in the image field. Upper abdomen: No abnormality noted. IMPRESSION: 1. Slight increased vascular congestion. 2. Improved basilar ventilation with residual mild atelectasis. 3. Lines and tubes as above. ACT 112: Negative or not required by law. Electronically signed by Hyun Valderrama 05-08-2024 09:02 AM
--- NOTE | 2024-05-08 10:00 | Electrocardiogram Report ---
Test Reason : Blood Pressure : */* mmHG Vent. Rate : 85 BPM Atrial Rate : 85 BPM P-R Int : 174 ms QRS Dur : 142 ms QT Int : 436 ms P-R-T Axes : 51 7 66 degrees QTcB Int : 518 ms Sinus rhythm with Premature atrial complexes with Aberrant conduction Left bundle branch block Abnormal ECG When compared with ECG of 17-Feb-2024 09:40, Premature ventricular complexes are no longer Present Aberrant conduction is now Present Confirmed by Angel Lopez ([id number]) on 05/08/2024 10:00:21 AM Referred By: Neel Robertson Confirmed By: Angel Lopez
[2024-05-08 10:21] LABS: Thyroid Stimulating Hormone 0.906 uIu/ml (0.300-4.500)
[2024-05-08 11:24] LABS: iSTAT Allen Test Pass; iSTAT Art Bld Gas pCO2 Correct 48 mmHg (35-46); iSTAT Art Bld Gas pH Corrected 7.395 (7.35-7.45); iSTAT Arterial Blood Gas HCO3 29 meg/L (19-24); iSTAT Arterial Blood Gas pCO2 47 mmHg (35-46); iSTAT Arterial Blood Gas pH 7.41 (7.35-7.45); iSTAT Arterial Blood Gas pO2 67 mmHg (80-95); iSTAT Arterial Blood Gas pO2 C 70; iSTAT Carbon Dioxide 31 mmol/L (24-31); iSTAT FiO2 35 %; iSTAT Hematocrit 32 % (37-47); iSTAT Hemoglobin 10.9 g/dl (12.0-16.0); iSTAT Potassium 3.7 mmol/L (3.3-5.0); iSTAT Sample Type Arterial; iSTAT Site L Radial; iSTAT Sodium 131 mmol/L (135-144); iSTAT SpO2 98
--- NOTE | 2024-05-08 14:33 | Hospitalist Progress Note ---
Date of Service May 08, 2024 Assessment & Plan (1) Acute hypoxemic respiratory failure: (2) Acute metabolic encephalopathy: (3) Influenza A: Plan Patient is a 78-year-old female with past medical history of ESRD on hemodialysis, COPD on 3 L of oxygen, Parkinson's disease, hypothyroidism, type 2 diabetes mellitus, RENÉ, hyperlipidemia, generalized anxiety disorder who was sent from [email or web address] after she was found to be confused and short of breath. Acute on chronic hypoxic respiratory failure Acute metabolic encephalopathy Influenza A Possible pneumonia --Chest CT:Accounting for respiratory artifact, there are subtle patchy opacities in the posterior right upper lobe, the superior and medial basal segment of the right lower lobe. Less prominent changes are noted involving the inferior aspect of the left upper lobe and the medial basal segment of the left lower lobe. These are all new from the previous examination. Multifocal pneumonia is not excluded. -- BioFire positive for influenza A -Procalcitonin 2.4 Nasal MRSA positive -Blood cultures negative to date -Urine cultures negative Continue Tamiflu-empirically on Zosyn, vancomycin -- Appreciate critical care input Continue pressors as needed Vent management per ICU team Daily SBT Elevated troponin, Type II AK Likely demand ischemia secondary to above in setting of end-stage renal disease Less likely ACS Monitor Echo pending End-stage renal disease Continue dialysis per nephrology Appreciate nephrology input Chronic conditions: Parkinson's disease; continue on carbidopa/levodopa Hypothyroidism; continue levothyroxine RENÉ on CPAP; currently intubated Orthostatic Hypotension; continue on midodrine CODE STATUS Full code DVT Px: Heparin SQ Admission and Anticipated Discharge Date Admission Date: May 06, 2024 Subjective Patient is seen and examined at bedside Had SBT today Remains on low dose pressors Sedated and intubated Cultures remain negative Review of Systems Review of Systems: All systems reviewed & are unremarkable except as noted in Subjective Physical Exam Physical Exam: Physical Exam: Vitals signs as noted above General Appearance:Obese, no apparent distress, sedated and Intubated Head: normocephalic, Atraumatic Eyes: normal inspection, EOMI Neck: supple, Trachea midline Respiratory/Chest: Normal breath sounds, CTA, No accessory muscle use Cardiovascular: S1, S2, No murmur Abdomen/GI:Soft, Non tender, Bowel sounds present Extremities/Musculoskeletal:normal inspection, no edema Neurologic/Psych: Sedated and intubated, unable to perform complete neurological exam Skin: normal color, warm Results & Data Results & Data Vital Signs (Past 12 Hours) Vital Signs Temp Pulse Resp BP Pulse Ox O2 Del Method FiO2 05/08/24 13:24 37.4 C 67 16 99 05/08/24 13:15 37.3 C 67 16 99 05/08/24 13:01 165/48 H 05/08/24 12:45 37.6 C H 65 16 97 05/08/24 12:30 97/38 L 05/08/24 12:30 37.7 C H 68 16 94 05/08/24 12:15 37.7 C H 71 16 95 05/08/24 12:01 91/38 L 05/08/24 12:00 35 05/08/24 11:51 37.8 C H 73 16 94 05/08/24 11:31 119/50 L 05/08/24 11:31 119/50 L 05/08/24 11:17 81 17 96 35 05/08/24 11:09 37.7 C H 86 19 98 05/08/24 11:06 37.7 C H 94 H 24 97 05/08/24 10:31 195/77 H 05/08/24 10:30 37.5 C 113 H 23 99 05/08/24 10:12 37.5 C 81 17 95 05/08/24 09:30 162/61 H 05/08/24 09:30 162/61 H 05/08/24 09:30 162/61 H 05/08/24 09:24 37.5 C 85 18 95 05/08/24 09:01 157/78 H 05/08/24 09:01 157/78 H 05/08/24 09:01 157/78 H 05/08/24 09:00 37.5 C 99 H 12 96 05/08/24 08:33 37.3 C 82 21 98 05/08/24 08:31 168/50 H 05/08/24 08:30 37.3 C 88 20 97 05/08/24 08:15 65 16 94 30 05/08/24 08:03 37.1 C 63 16 94 05/08/24 08:00 114/42 L 05/08/24 08:00 30 05/08/24 08:00 Mechanical Vent 30 05/08/24 07:57 37.1 C 66 16 94 05/08/24 07:30 109/39 L 05/08/24 07:30 109/39 L 05/08/24 07:30 37.2 C 66 16 94 05/08/24 07:01 129/44 L 05/08/24 07:00 37.2 C 66 16 93 05/08/24 06:30 142/52 H 05/08/24 06:24 37.3 C 69 21 97 05/08/24 06:22 146/49 H 05/08/24 06:21 37.3 C 70 22 99 05/08/24 06:18 37.3 C 72 18 100 05/08/24 06:03 37.4 C 64 14 94 05/08/24 05:36 37.4 C 66 14 94 05/08/24 05:33 87/35 L 05/08/24 05:21 37.4 C 67 14 94 05/08/24 05:16 111/42 L 05/08/24 05:15 37.4 C 67 14 93 05/08/24 05:12 37.4 C 67 14 93 05/08/24 05:01 143/52 H 05/08/24 05:01 143/52 H 05/08/24 04:57 37.4 C 80 15 92 05/08/24 04:46 131/60 05/08/24 04:45 37.3 C 72 14 93 05/08/24 04:36 37.3 C 70 13 91 05/08/24 04:21 37.2 C 75 14 94 05/08/24 04:16 168/61 H 05/08/24 04:12 37.2 C 95 H 12 100 05/08/24 04:01 143/55 H 05/08/24 04:00 30 05/08/24 03:42 37.1 C 68 14 92 05/08/24 03:40 71 16 91 30 05/08/24 03:39 37.1 C 68 14 92 05/08/24 03:31 119/54 L 05/08/24 03:16 122/42 L 05/08/24 03:12 37.1 C 68 14 94 05/08/24 02:33 37.1 C 68 14 94 05/08/24 02:30 129/41 L 02/22/25 02:30 129/41 L Laboratory Results Short CBC 05/08/24 Range/Units 04:50 WBC 13.79 H (4.8-10.8) K/ul Hgb 9.4 L (12.0-16.0) g/dl Hct 28.8 L (37.0-47.0) % Plt Count 230 (130-400) K/uL BMP 05/08/24 04:50 Sodium 133 L Potassium 3.7 Chloride 91 L Carbon Dioxide 30 BUN 26 H Creatinine 4.31 H D Glucose 142 H Calcium 9.5 Liver Function 05/08/24 Range/Units 04:50 Total Bilirubin 0.4 (0.2-1.0) mg/dl Direct Bilirubin 0.1 (0-0.2) mg/dl AST 23 (13-39) U/L ALT 9 (7-52) U/L Alkaline Phosphatase 74 (34-104) U/L Albumin 3.8 (3.4-5.0) gm/dl
--- NOTE | 2024-05-08 16:31 | Pharmacy Report ---
Pharmacy PK ABX Note - Date of Service May 08, 2024 - Assessment and Plan Assessment * 78 year old F receiving VANCOMYCIN/ZOSYN for treatment of possible secondary bacterial pneumonia with influenza A . * Pertinent microbiologic data includes: Positive MRSA Nasal Swab, Sputum, blood, urine cultures all pending. * Intubated 05/06 for encephalopathy, requiring pressors. * Patient with ESRD on dialysis MWF - last HD was yesterday for 3.3 hours. May or may not need additional HD today. Plan Vancomycin * Maintenance dose: DOSE BY LEVELS- HD * Level trended down to 18.2 mcg/mL after patient was dialyzed yesterday. May or may not need additional HD today. No additional vanco unless dialyzed >=1.5 hours today. If they are, 500 mg IV x1 planned. Pending order entered. * Random level ordered with AM labs 05/09 Pharmacy will continue to follow and will adjust dose/frequency as necessary. Thank you. Pharmacy has transitioned to AUC monitoring for vancomycin. AUC/MOOK is the preferred PK/PD target and is associated with decreased risk of nephrotoxicity compared to traditional trough targets.
[2024-05-08] MEDS: TUBE FEEDING WATER FLUSH OG SCH (17:23)
[2024-05-08] MEDS: PEPTAMEN INTENSE VHP 1.0 CAL 1,000 ML BAG OG SCH (18:30)
[2024-05-09 05:22] LABS: Hematocrit (blood only) 25.2 % (37.0-47.0); Hemoglobin 8.3 g/dl (12.0-16.0); Mean Corpuscular Hemoglobin 33.3 pg (25.0-34.0); Mean Corpuscular Hgb Conc 32.9 g/dL (32.0-36.0); Mean Corpuscular Volume 101.2 fL (80.0-100.0); Mean Platelet Volume 10.9 fL (9.4-12.4); Platelet Count 202 K/uL (130-400); RDW Coefficient of Variation 14.6 % (11.5-14.5); RDW Standard Deviation 54.3 fL (36.4-46.3); Red Blood Count 2.49 M/uL (4.20-5.40); White Blood Count 9.93 K/ul (4.8-10.8)
[2024-05-09 05:37] LABS: Albumin Level 3.4 gm/dl (3.4-5.0); Bilirubin Direct 0.1 mg/dl (0-0.2); Bilirubin,Total 0.4 mg/dl (0.2-1.0); Calcium 8.9 mg/dl (8.6-10.3); Creatinine Clr Calc Pharmacy 8.8 ml/min; Magnesium 1.9 mg/dl (1.7-2.4); Phosphorus 4.3 mg/dl (2.5-4.9); Potassium 3.5 mmol/L (3.5-5.1); Total Protein 6.7 gm/dl (6.0-8.3)
[2024-05-09 06:00] LABS: Basophils # (auto) 0.06 K/uL (0.00-0.20); Basophils % (auto) 0.6 %; Eosinophils # (auto) 0.07 K/uL (0.00-0.50); Eosinophils % (auto) 0.7 %; Immature Granulocytes # (auto) 0.67 K/uL (0.01-0.20); Immature Granulocytes % (auto) 6.7 %; Lymphocytes % (auto) 13.1 %; Monocytes # (auto) 0.84 K/uL (0.11-0.59); Monocytes % (auto) 8.5 %; Neutrophils # (auto) 6.99 K/uL (1.40-6.50); Neutrophils % (auto) 70.4 %; Polychromasia 1+
[2024-05-09] MEDS: cefTRIAXone SODIUM 2,000 MG/50 ML BAG IV SCH (10:32)
--- NOTE | 2024-05-09 12:08 | Critical Care Progress Note ---
Date of Service May 09, 2024 Assessment & Plan (1) Sepsis: (2) Acute hypoxemic respiratory failure: (3) Pneumonia: (4) Influenza A: (5) Acute metabolic encephalopathy: (6) Multifocal pneumonia: (7) Acute encephalopathy: Plan Reason Critically Ill: Acute on chronic hypoxemic respiratory failure 2/2 #2 and limited respiratory reserve requiring intubation mechanical ventilation Neuro - Acute encephalopathy: Multifactorial including metabolic Parkinsonism:Sinemet Continue home SSRI. Hold Lyrica for now Cardiac - Abnormal EKG: Left bundle branch block Continue statin Continue midodrine. As needed Levophed to maintain maps above 65 mmHg. Respiratory - Influenza A viral pneumonia with super imposed bacterial pneumonia Acute hypoxic respiratory failure -Spontaneous breathing parameters okay, mental status appears to be marginal not following simple commands is somewhat able to pantomime secretion burden resolved compared to yesterday -Believe the patient to be very high risk for subsequent respiratory failure and need for reintubation -Given baseline parkinsonism certainly at risk for aspiration and poor cough function, these risks are compounded in the setting of obstructive sleep apnea at baseline - ABG encouraging for successful ventilator liberation History of obstructive sleep apnea. GI - Diet: Tolerating tube feeds SUP: PPI Bowel regimen: Miralax RENAL/LYTES - Nephrology consult for iHD, appreciate recommendations Replete electrolytes as indicated ENDO - Continue levothyroxine. BG 140-180 per [facility] guidelines ISS if needed while inpatient HEME - Patient with likely anemia of chronic disease. Macrocytosis noted. ID - Sputum culture resulted in moderate normal rebecca however there is a significant secretion burden -Discontinue vancomycin clinically does not appear consistent with necrotic MRSA pneumonia -Transition from Zosyn to Rocephin LINES/TUBES/DRAINS - PIV x2 ETT OGT DVT PROPHYLAXIS - [facility] CODE STATUS: Full -Patient's clinical condition and baseline function has decreased since initial palliative care consult in 2019 reconsulting to further elucidate goals of care and better understand patient's underlying goals. Patient at significant risk for reintubation and clinical deterioration highly likely to impact quality of life. - Attempted to contact to discuss goals further, leave message on machine 12:30 discussed aspects of care and prognosis. Discussed whether patient would want reintubation in event of respiratory insufficiency/failure. I expressed that the patient has met criteria for a trial of extubation; not withstanding patient has several comorbidities that place her at risk for subsequent respiratory failure. Patient's reiterated she would not want long-term life support, she clearly did not want tracheostomy in the past. Patient's felt that if patient subsequently failed and necessitated reintubation to transition to comfort measures at that time. This prompted additional discussion regarding CODE STATUS. Reported patient would not want intubation in event of cardiac arrest they are comfortable with shocks or medication administration: I will update CODE STATUS to conditional with emphasis on no intubation for respiratory failure -Would consider it reasonable to bridge with noninvasive mechanical ventilation but would not reintubate in event of fulminant respiratory failure. Discussed whether would desire to be present for trial of extubation, he reports he [place] unable to travel [place] that he cannot travel out and support cannot travel in. He will be contacting 3 children who live locally to see if they would desire to be present for trial of extubation. We are holding extubation until returns phone call and whether we will make accommodations for family members to be present for trial of extubation/terminal extubation. parameters acceptable for trail of extubation, awaiting family to be present for extubation. I have personally spent 80 minutes of critical care time in the direct management of this patient. This is a life/limb threatening event. This includes time spent evaluating patient, direct bedside care, chart review, placing orders, interpretation of diagnostic studies, discussion with consultants, patient, and family members, as well as other required patient management activities. This time is exclusive of all separately billable procedures, and teaching time and separate from and in addition to any other critical care service time. Admission and Anticipated Discharge Date Admission Date: May 06, 2024 Subjective No overnight events. Patient remained intubated secondary to significant tenacious secretion clearance burden. Reviewed prior records patient was last seen by palliative care in 2019 Reported Parkinson's history and medications, has not received medications in 2 days secondary to inability to administer via OG tube Physical Exam Physical Exam: General: Sedated. nontoxic. Skin: Warm, dry, Head: Atraumatic Ears, nose, mouth and throat: airway obscured by endotracheal tube Cardiovascular: Normal peripheral perfusion Respiratory: Ventilator settings reviewed Gastrointestinal: Non distended Musculoskeletal: No deformity Results & Data Results & Data Vital Signs (Past 12 Hours) Vital Signs Temp Pulse Resp BP Pulse Ox Pulse Ox O2 Del Method 05/09/24 11:00 37.6 C H 78 17 94 05/09/24 11:00 182/63 H 05/09/24 11:00 80 18 95 05/09/24 10:01 165/53 H 05/09/24 10:00 37.5 C 79 16 98 Mechanical Vent 05/09/24 09:01 173/79 H 05/09/24 09:00 37.5 C 80 15 97 05/09/24 08:24 37.5 C 81 15 96 05/09/24 08:00 175/60 H 05/09/24 08:00 05/09/24 08:00 Mechanical Vent 05/09/24 07:03 37.3 C 67 16 96 05/09/24 07:00 72 16 95 05/09/24 07:00 120/51 L 05/09/24 06:30 37.3 C 68 16 05/09/24 06:30 100/41 L 05/09/24 06:15 113/42 L 05/09/24 06:15 37.3 C 66 16 05/09/24 06:00 37.4 C 68 16 05/09/24 05:46 134/43 L 05/09/24 05:46 134/43 L 05/09/24 05:30 160/68 H 05/09/24 05:30 160/68 H 05/09/24 05:30 37.5 C 75 13 05/09/24 05:15 152/60 H 05/09/24 05:09 37.6 C H 73 17 05/09/24 05:01 157/77 H 05/09/24 04:46 164/63 H 05/09/24 04:36 37.4 C 71 16 94 05/09/24 04:30 127/45 L 05/09/24 04:18 37.5 C 73 16 93 05/09/24 04:15 133/56 L 05/09/24 04:15 133/56 L 05/09/24 04:15 37.4 C 78 16 94 05/09/24 04:00 37.4 C 65 16 05/09/24 04:00 05/09/24 04:00 94 05/09/24 03:45 110/38 L 05/09/24 03:45 110/38 L 05/09/24 03:45 37.4 C 66 11 L 05/09/24 03:30 114/43 L 05/09/24 03:30 114/43 L 05/09/24 03:24 37.4 C 67 14 97 05/09/24 03:15 77 16 96 05/09/24 03:15 107/43 L 05/09/24 03:15 37.4 C 66 16 05/09/24 03:00 102/40 L 05/09/24 03:00 37.4 C 67 16 05/09/24 02:30 109/41 L 05/09/24 02:21 37.4 C 70 14 96 05/09/24 02:15 123/43 L 05/09/24 02:12 37.4 C 69 16 96 05/09/24 02:03 37.4 C 72 16 96 05/09/24 02:00 130/43 L 05/09/24 02:00 130/43 L 05/09/24 02:00 130/43 L 05/09/24 01:54 37.4 C 71 16 96 05/09/24 01:45 131/46 L 05/09/24 01:45 37.4 C 72 16 05/09/24 01:30 135/50 L 05/09/24 01:12 37.4 C 73 16 98 05/09/24 01:03 37.4 C 90 14 97 05/09/24 01:00 117/89 05/09/24 01:00 117/89 05/09/24 01:00 117/89 05/09/24 00:45 107/38 L 05/09/24 00:42 37.3 C 69 16 96 05/09/24 00:30 100/36 L 05/09/24 00:30 100/36 L 05/09/24 00:30 37.3 C 69 16 05/09/24 00:15 115/38 L 05/09/24 00:15 115/38 L 05/09/24 00:15 37.4 C 71 16 05/09/24 00:00 118/40 L 05/09/24 00:00 118/40 L 05/09/24 00:00 05/09/24 00:00 96 05/09/24 00:00 71 O2 Del Method FiO2 05/09/24 11:00 05/09/24 11:00 05/09/24 11:00 30 05/09/24 10:01 05/09/24 10:00 30 05/09/24 09:01 05/09/24 09:00 05/09/24 08:24 05/09/24 08:00 05/09/24 08:00 30 05/09/24 08:00 30 05/09/24 07:03 05/09/24 07:00 30 05/09/24 07:00 05/09/24 06:30 05/09/24 06:30 05/09/24 06:15 05/09/24 06:15 05/09/24 06:00 05/09/24 05:46 05/09/24 05:46 05/09/24 05:30 05/09/24 05:30 05/09/24 05:30 05/09/24 05:15 05/09/24 05:09 05/09/24 05:01 05/09/24 04:46 05/09/24 04:36 05/09/24 04:30 05/09/24 04:18 05/09/24 04:15 05/09/24 04:15 05/09/24 04:15 05/09/24 04:00 05/09/24 04:00 35 05/09/24 04:00 Mechanical Vent 05/09/24 03:45 05/09/24 03:45 05/09/24 03:45 05/09/24 03:30 05/09/24 03:30 05/09/24 03:24 05/09/24 03:15 30 05/09/24 03:15 05/09/24 03:15 05/09/24 03:00 05/09/24 03:00 05/09/24 02:30 05/09/24 02:21 05/09/24 02:15 05/09/24 02:12 05/09/24 02:03 05/09/24 02:00 05/09/24 02:00 05/09/24 02:00 05/09/24 01:54 05/09/24 01:45 05/09/24 01:45 05/09/24 01:30 05/09/24 01:12 05/09/24 01:03 05/09/24 01:00 05/09/24 01:00 05/09/24 01:00 05/09/24 00:45 05/09/24 00:42 05/09/24 00:30 05/09/24 00:30 05/09/24 00:30 05/09/24 00:15 05/09/24 00:15 05/09/24 00:15 05/09/24 00:00 05/09/24 00:00 05/09/24 00:00 35 05/09/24 00:00 Mechanical Vent 05/09/24 00:00 Critical Care Results & Data Vital Signs (Past 12 Hours) Vital Signs Temp Pulse Resp BP Pulse Ox Pulse Ox O2 Del Method 05/09/24 11:00 37.6 C H 78 17 94 05/09/24 11:00 182/63 H 05/09/24 11:00 80 18 95 05/09/24 10:01 165/53 H 05/09/24 10:00 37.5 C 79 16 98 Mechanical Vent 05/09/24 09:01 173/79 H 05/09/24 09:00 37.5 C 80 15 97 05/09/24 08:24 37.5 C 81 15 96 05/09/24 08:00 175/60 H 05/09/24 08:00 05/09/24 08:00 Mechanical Vent 05/09/24 07:03 37.3 C 67 16 96 05/09/24 07:00 72 16 95 05/09/24 07:00 120/51 L 05/09/24 06:30 37.3 C 68 16 05/09/24 06:30 100/41 L 05/09/24 06:15 113/42 L 05/09/24 06:15 37.3 C 66 16 05/09/24 06:00 37.4 C 68 16 05/09/24 05:46 134/43 L 05/09/24 05:46 134/43 L 05/09/24 05:30 160/68 H 05/09/24 05:30 160/68 H 05/09/24 05:30 37.5 C 75 13 05/09/24 05:15 152/60 H 05/09/24 05:09 37.6 C H 73 17 05/09/24 05:01 157/77 H 05/09/24 04:46 164/63 H 05/09/24 04:36 37.4 C 71 16 94 05/09/24 04:30 127/45 L 05/09/24 04:18 37.5 C 73 16 93 05/09/24 04:15 133/56 L 05/09/24 04:15 133/56 L 05/09/24 04:15 37.4 C 78 16 94 05/09/24 04:00 37.4 C 65 16 05/09/24 04:00 05/09/24 04:00 94 05/09/24 03:45 110/38 L 05/09/24 03:45 110/38 L 05/09/24 03:45 37.4 C 66 11 L 05/09/24 03:30 114/43 L 05/09/24 03:30 114/43 L 05/09/24 03:24 37.4 C 67 14 97 05/09/24 03:15 77 16 96 05/09/24 03:15 107/43 L 05/09/24 03:15 37.4 C 66 16 05/09/24 03:00 102/40 L 05/09/24 03:00 37.4 C 67 16 05/09/24 02:30 109/41 L 05/09/24 02:21 37.4 C 70 14 96 05/09/24 02:15 123/43 L 05/09/24 02:12 37.4 C 69 16 96 05/09/24 02:03 37.4 C 72 16 96 05/09/24 02:00 130/43 L 05/09/24 02:00 130/43 L 05/09/24 02:00 130/43 L 05/09/24 01:54 37.4 C 71 16 96 05/09/24 01:45 131/46 L 05/09/24 01:45 37.4 C 72 16 05/09/24 01:30 135/50 L 05/09/24 01:12 37.4 C 73 16 98 05/09/24 01:03 37.4 C 90 14 97 05/09/24 01:00 117/89 05/09/24 01:00 117/89 05/09/24 01:00 117/05/09/24 00:45 107/38 L 05/09/24 00:42 37.3 C 69 16 96 05/09/24 00:30 100/36 L 05/09/24 00:30 100/36 L 05/09/24 00:30 37.3 C 69 16 05/09/24 00:15 115/38 L 05/09/24 00:15 115/38 L 05/09/24 00:15 37.4 C 71 16 O2 Del Method FiO2 05/09/24 11:00 05/09/24 11:00 05/09/24 11:00 30 05/09/24 10:01 05/09/24 10:00 30 05/09/24 09:01 05/09/24 09:00 05/09/24 08:24 05/09/24 08:00 05/09/24 08:00 30 05/09/24 08:00 30 05/09/24 07:03 05/09/24 07:00 30 05/09/24 07:00 05/09/24 06:30 05/09/24 06:30 05/09/24 06:15 05/09/24 06:15 05/09/24 06:00 05/09/24 05:46 05/09/24 05:46 05/09/24 05:30 05/09/24 05:30 05/09/24 05:30 05/09/24 05:15 05/09/24 05:09 05/09/24 05:01 05/09/24 04:46 05/09/24 04:36 05/09/24 04:30 05/09/24 04:18 05/09/24 04:15 05/09/24 04:15 05/09/24 04:15 05/09/24 04:00 05/09/24 04:00 35 05/09/24 04:00 Mechanical Vent 05/09/24 03:45 05/09/24 03:45 05/09/24 03:45 05/09/24 03:30 05/09/24 03:30 05/09/24 03:24 05/09/24 03:15 30 05/09/24 03:15 05/09/24 03:15 05/09/24 03:00 05/09/24 03:00 05/09/24 02:30 05/09/24 02:21 05/09/24 02:15 05/09/24 02:12 05/09/24 02:03 05/09/24 02:00 05/09/24 02:00 05/09/24 02:00 05/09/24 01:54 05/09/24 01:45 05/09/24 01:45 05/09/24 01:30 05/09/24 01:12 05/09/24 01:03 05/09/24 01:00 05/09/24 01:00 05/09/24 01:00 05/09/24 00:45 05/09/24 00:42 05/09/24 00:30 05/09/24 00:30 05/09/24 00:30 05/09/24 00:15 05/09/24 00:15 05/09/24 00:15 Lab & Micro Results (Past 24 Hours) RBC 2.49 M/uL (4.20-5.40) L 05/09/24 WBC 9.93 K/ul (4.8-10.8) 05/09/24 Hgb 8.3 g/dl (12.0-16.0) L 05/09/24 Hct 25.2 % (37.0-47.0) L 05/09/24 MCV 101.2 fL (80.0-100.0) H 05/09/24 MCH 33.3 pg (25.0-34.0) 05/09/24 MCHC 32.9 g/dL (32.0-36.0) 05/09/24 RDW Standard Deviation 54.3 fL (36.4-46.3) H 05/09/24 RDW Coefficient of Variation 14.6 % (11.5-14.5) H 05/09/24 Plt Count 202 K/uL (130-400) 05/09/24 MPV 10.9 fL (9.4-12.4) 05/09/24 Neutrophils (%) (Auto) 70.4 % 05/09/24 Lymphocytes (%) (Auto) 13.1 % 05/09/24 Monocytes # (Auto) 0.84 K/uL (0.11-0.59) H 05/09/24 Eosinophils # (Auto) 0.07 K/uL (0.00-0.50) 05/09/24 Immature Granulocyte % (Auto) 6.7 % 05/09/24 Neutrophils # (Auto) 6.99 K/uL (1.40-6.50) H 05/09/24 Lymphocytes # (Auto) 1.30 K/uL (1.20-3.40) 05/09/24 Monocytes # (Auto) 0.84 K/uL (0.11-0.59) H 05/09/24 Eosinophils # (Auto) 0.07 K/uL (0.00-0.50) 05/09/24 Basophils # (Auto) 0.06 K/uL (0.00-0.20) 05/09/24 Immature Granulocyte # (Auto) 0.67 K/uL (0.01-0.20) H 05/09 Polychromasia 1+ 05/09/24 Na 133 mmol/L (136-145) L 05/09/24 K 3.5 mmol/L (3.5-5.1) 05/09/24 Cl 91 mmol/L (98-107) L 05/09/24 CO2 28 mmol/L (21-32) 05/09/24 Anion Gap 14 (3-11) H 05/09/24 BUN 36 mg/dl (6-23) H 05/09/24 Creatinine 6.03 mg/dl (0.6-1.2) H* 05/09/24 BUN/Creatinine Ratio 6.0 (10-20) L 05/09/24 Glu 96 mg/dl (70-99(Fasting)) 05/09/24 Ca 8.9 mg/dl (8.6-10.3) 05/09/24 Phosphorus Level 4.3 mg/dl (2.5-4.9) 05/09/24 Total Bilirubin 0.4 mg/dl (0.2-1.0) 05/09/24 Direct Bilirubin 0.1 mg/dl (0-0.2) 05/09/24 AST 17 U/L (13-39) 05/09/24 ALT 6 U/L (7-52) L 05/09/24 Alkaline Phosphatase 64 U/L (34-104) 05/09/24 TP 6.7 gm/dl (6.0-8.3) 05/09/24 Albumin 3.4 gm/dl (3.4-5.0) 05/09/24 Mg 1.9 mg/dl (1.7-2.4) 05/09/24 04:39 Calcium Level 8.9 mg/dl (8.6-10.3) 05/09/24 04:39 Richard Test Pass 05/09/24 12:32 Microbiology 05/07/24 07:57 Gram Stain - Final Sputum,Vent Suction Sputum Culture - Final Moderate normal rebecca. 05/06/24 Unknown Aerobic Blood Culture - Preliminary Blood No growth in Aerobic bottle after 48 hours. Anaerobic Blood Culture - Preliminary No growth in Anaerobic bottle after 48 hours. 05/06/24 20:04 Aerobic Blood Culture - Preliminary Blood No growth in Aerobic bottle after 48 hours. Anaerobic Blood Culture - Preliminary No growth in Anaerobic bottle after 48 hours. 05/06/24 20:45 Urine Culture - Final Urine,Clean Catch Three types of organisms present, all moderate counts. Repeat collection recommended. No further identifications or sensitivities to follow. I & O Totals 24 Hours 05/08/24 05/09/24 05/10/24 06:59 06:59 06:59 Intake Total 1012.207 / 8009.363 1946.493 / 1016.493 328.75 / 328.75 Output Total 0 / 0 1 / 1 0 / 0 Balance 1012.207 / 5240.216 7750.493 / 1015.493 328.75 / 328.75 Cumulative 05/06/24 18:38 thru 05/09/24 11:04 Intake Total 3121.500 Output Total 11 Balance 3110.500 RT Ventilator Mngmt (Last Documented) Ventilator Ordered Settings Ventilator Support Mode CPAP 05/09/24 11:00 Respiratory Rate 17 05/09/24 11:00 Ventilator Tidal Volume 360 05/09/24 04:00 Setting Minute Ventilation 6.1 05/09/24 11:00 Ventilator Positive Pressure 8 05/09/24 11:00 Support Setting Positive End Expiratory 6 05/09/24 11:00 Pressure Fraction of Inspired Oxygen 30 05/09/24 11:00 Ventilator - PT Measurements Respiratory Rate 17 Exhaled Tidal Volume 405 Minute Ventilation 6.1 Peak Inspiratory Airway 15 Pressure Plateau Pressure 19 Respiratory Cycle Inspiratory: 1:4.0 Expiratory Ratio Inspiratory Phase Time 0.90 End-Tidal CO2 41 Static Lung Compliance 27.69 Dynamic Lung Compliance 45.00 Normal Static Lung Compliance 48.00 Patient Measurements Comment ETT pulled back to 23 at the lip per ICU RUBEN verbal order. secured with commercial tube frazier. no complications. will continue to monitor. Coding Level of Care Code 30398 CRITICAL CARE 1ST 30-74M Additional Critical Care Time Additional 30min Critical Care Time: Yes - 91888 Diagnoses Sepsis A41.9 Acute hypoxemic respiratory failure J96.01 Pneumonia J18.9 Influenza A J10.1 Acute metabolic encephalopathy G93.41 Multifocal pneumonia J18.9 Acute encephalopathy G93.40 Additional Codes Critical Care Time - Additional 30min Critical Care Time: Yes - [id number] ([id number])
[2024-05-09 12:43] LABS: iSTAT Allen Test Pass; iSTAT Art Bld Gas pCO2 Correct 44 mmHg (35-46); iSTAT Art Bld Gas pH Corrected 7.392 (7.35-7.45); iSTAT Arterial Blood Gas HCO3 26 meg/L (19-24); iSTAT Arterial Blood Gas pCO2 43 mmHg (35-46); iSTAT Arterial Blood Gas pO2 81 mmHg (80-95); iSTAT Arterial Blood Gas pO2 C 85; iSTAT Carbon Dioxide 28 mmol/L (24-31); iSTAT FiO2 30 %; iSTAT Hematocrit 27 % (37-47); iSTAT Hemoglobin 9.2 g/dl (12.0-16.0); iSTAT Potassium 3.8 mmol/L (3.3-5.0); iSTAT Sample Type Arterial; iSTAT Site L Radial; iSTAT Sodium 132 mmol/L (135-144); iSTAT SpO2 97
--- NOTE | 2024-05-09 14:43 | Hospitalist Progress Note ---
Date of Service May 09, 2024 Assessment & Plan (1) Acute hypoxemic respiratory failure: (2) Acute metabolic encephalopathy: (3) Influenza A: Plan Patient is a 78-year-old female with past medical history of ESRD on hemodialysis, COPD on 3 L of oxygen, Parkinson's disease, hypothyroidism, type 2 diabetes mellitus, RENÉ, hyperlipidemia, generalized anxiety disorder who was sent from [facility] after she was found to be confused and short of breath. Acute on chronic hypoxic respiratory failure Acute metabolic encephalopathy Influenza A Possible pneumonia --Chest CT:Accounting for respiratory artifact, there are subtle patchy opacities in the posterior right upper lobe, the superior and medial basal segment of the right lower lobe. Less prominent changes are noted involving the inferior aspect of the left upper lobe and the medial basal segment of the left lower lobe. These are all new from the previous examination. Multifocal pneumonia is not excluded. -- BioFire positive for influenza A -Procalcitonin 2.4 Nasal MRSA positive -Blood cultures negative to date -Urine cultures negative --Sputum culture grew normal rebecca Continue Tamiflu-empirically on Zosyn, vancomycin>> transition to Rocephin -- Appreciate critical care input Off pressors today Vent management per ICU team Daily SBT Continue tube feeds Likely to be extubated today Elevated troponin, Type II CA Likely demand ischemia secondary to above in setting of end-stage renal disease Less likely ACS --ECHO: EF 50 to 55%. Right ventricle is normal size. Right ventricle systolic pressure is normal. Mild valvular aortic stenosis. Mild to moderate mitral regurgitation. Mild tricuspid regurgitation. Monitor End-stage renal disease Continue dialysis per nephrology Appreciate nephrology input Chronic conditions: Parkinson's disease; continue on carbidopa/levodopa Hypothyroidism; continue levothyroxine RENÉ on CPAP; currently intubated Orthostatic Hypotension; continue on midodrine CODE STATUS Conditional code DVT Px: Heparin SQ Admission and Anticipated Discharge Date Admission Date: May 06, 2024 Subjective Patient is seen and examined at bedside Was having SBT and off sedation during my encounter today Opens eyes, follows simple commands Off pressors since yesterday evening Unable to obtain much history due to intubation Review of Systems Review of Systems: All systems reviewed & are unremarkable except as noted in Subjective Physical Exam Physical Exam: Physical Exam: Vitals signs as noted above General Appearance:Obese, no apparent distress, Intubated Head: normocephalic, Atraumatic Eyes: normal inspection, EOMI Neck: supple, Trachea midline Respiratory/Chest: Normal breath sounds, CTA, No accessory muscle use Cardiovascular: S1, S2, No murmur Abdomen/GI:Soft, Non tender, Bowel sounds present Extremities/Musculoskeletal:normal inspection, no edema Neurologic/Psych: Intubated, unable to perform complete neurological exam Skin: normal color, warm Results & Data Results & Data Vital Signs (Past 12 Hours) Vital Signs Temp Pulse Resp BP Pulse Ox Pulse Ox O2 Del Method 05/09/24 12:00 173/67 H 05/09/24 12:00 37.6 C H 75 16 05/09/24 12:00 05/09/24 11:00 37.6 C H 78 17 94 05/09/24 11:00 182/63 H 05/09/24 11:00 80 18 95 05/09/24 10:01 165/53 H 05/09/24 10:00 37.5 C 79 16 98 Mechanical Vent 05/09/24 09:01 173/79 H 05/09/24 09:00 37.5 C 80 15 97 05/09/24 08:24 37.5 C 81 15 96 05/09/24 08:00 175/60 H 05/09/24 08:00 05/09/24 08:00 Mechanical Vent 05/09/24 07:03 37.3 C 67 16 96 05/09/24 07:00 72 16 95 05/09/24 07:00 120/51 L 05/09/24 06:30 37.3 C 68 16 05/09/24 06:30 100/41 L 05/09/24 06:15 113/42 L 05/09/24 06:15 37.3 C 66 16 05/09/24 06:00 37.4 C 68 16 05/09/24 05:46 134/43 L 05/09/24 05:46 134/43 L 05/09/24 05:30 160/68 H 05/09/24 05:30 160/68 H 05/09/24 05:30 37.5 C 75 13 05/09/24 05:15 152/60 H 05/09/24 05:09 37.6 C H 73 17 05/09/24 05:01 157/77 H 05/09/24 04:46 164/63 H 05/09/24 04:36 37.4 C 71 16 94 05/09/24 04:30 127/45 L 05/09/24 04:18 37.5 C 73 16 93 05/09/24 04:15 133/56 L 05/09/24 04:15 133/56 L 05/09/24 04:15 37.4 C 78 16 94 05/09/24 04:00 37.4 C 65 16 05/09/24 04:00 05/09/24 04:00 94 05/09/24 03:45 110/38 L 05/09/24 03:45 110/38 L 05/09/24 03:45 37.4 C 66 11 L 05/09/24 03:30 114/43 L 05/09/24 03:30 114/43 L 05/09/24 03:24 37.4 C 67 14 97 05/09/24 03:15 77 16 96 05/09/24 03:15 107/43 L 05/09/24 03:15 37.4 C 66 16 05/09/24 03:00 102/40 L 05/09/24 03:00 37.4 C 67 16 O2 Del Method FiO2 05/09/24 12:00 05/09/24 12:00 05/09/24 12:00 05/09/24 11:00 05/09/24 11:00 05/09/24 11:00 05/09/24 10:01 05/09/24 10:00 05/09/24 09:01 05/09/24 09:00 05/09/24 08:24 05/09/24 08:00 05/09/24 08:00 05/09/24 08:00 05/09/24 07:03 05/09/24 07:00 05/09/24 07:00 05/09/24 06:30 05/09/24 06:30 05/09/24 06:15 05/09/24 06:15 05/09/24 06:00 05/09/24 05:46 05/09/24 05:46 05/09/24 05:30 05/09/24 05:30 05/09/24 05:30 05/09/24 05:15 05/09/24 05:09 05/09/24 05:01 05/09/24 04:46 05/09/24 04:36 05/09/24 04:30 05/09/24 04:18 05/09/24 04:15 05/09/24 04:15 05/09/24 04:15 05/09/24 04:00 05/09/24 04:00 35 05/09/24 04:00 Mechanical Vent 05/09/24 03:45 05/09/24 03:45 05/09/24 03:45 05/09/24 03:30 05/09/24 03:30 05/09/24 03:24 05/09/24 03:15 30 05/09/24 03:15 05/09/24 03:15 05/09/24 03:00 05/09/24 03:00 Laboratory Results Short CBC 05/09/24 Range/Units 04:39 WBC 9.93 (4.8-10.8) K/ul Hgb 8.3 L (12.0-16.0) g/dl Hct 25.2 L (37.0-47.0) % Plt Count 202 (130-400) K/uL BMP 05/09/24 04:39 Sodium 133 L Potassium 3.5 Chloride 91 L Carbon Dioxide 28 BUN 36 H Creatinine 6.03 H* D Glucose 96 Calcium 8.9 Liver Function 05/09/24 Range/Units 04:39 Total Bilirubin 0.4 (0.2-1.0) mg/dl Direct Bilirubin 0.1 (0-0.2) mg/dl AST 17 (13-39) U/L ALT 6 L (7-52) U/L Alkaline Phosphatase 64 (34-104) U/L Albumin 3.4 (3.4-5.0) gm/dl
--- NOTE | 2024-05-09 16:45 | Nephrology Progress Note ---
Date of Service May 09, 2024 Assessment & Plan Admission and Anticipated Discharge Date Admission Date: May 06, 2024 Subjective Assessment & Plan (1) ESRD (end stage renal disease) on dialysis: Now has good BP and better o2 sats and extbuated so should be easier tomorrow ABx empirically for now. Does have Inf A though Dialysis tomorrow for 3.5 hrs and take 3 kilo off. (2) Acute on chronic hypoxic respiratory failure: has COpd 2with chronic o2 but then got lot worse with Intubation and ventillator status. Good to see she is extubated now and on home o2 rate (3) Influenza A: Having severe presentation with this. Makes everything more difficult including Dialysis. S--better now. Extubated. BP abd o2 sats are good. Physical Exam Physical Exam: Constitutional:Awake and alert but confused Respiratory: Bilateral mechanical breath sound Cardiovascular: RRR, no murmur, 1+ edema no JVD Chest: b/l Diminished. occ crackles Abdomen: normal bowel sounds, Skin: no rashes, warm and dry normal turgor Neurologic: Sedated Results & Data Vital Signs (Past 12 Hours) Vital Signs Temp Pulse Resp BP Pulse Ox O2 Del Method O2 Flow Rate 05/09/24 16:15 82 18 95 Nasal Cannula 2 05/09/24 16:01 157/63 H 05/09/24 16:00 85 18 05/09/24 16:00 98 Nasal Cannula 2 05/09/24 15:03 37.7 C H 102 H 17 100 05/09/24 15:00 173/67 H 05/09/24 14:42 37.6 C H 99 H 13 97 05/09/24 14:06 37.6 C H 93 H 16 96 05/09/24 14:00 177/59 H 05/09/24 13:42 37.6 C H 86 17 95 05/09/24 13:00 180/64 H 05/09/24 13:00 37.6 C H 81 17 95 05/09/24 12:00 173/67 H 05/09/24 12:00 173/67 H 05/09/24 12:00 37.6 C H 75 16 05/09/24 12:00 05/09/24 11:00 37.6 C H 78 17 94 05/09/24 11:00 182/63 H 05/09/24 11:00 80 18 95 05/09/24 10:01 165/53 H 05/09/24 10:00 37.5 C 79 16 98 Mechanical Vent 05/09/24 09:01 173/79 H 05/09/24 09:00 37.5 C 80 15 97 05/09/24 08:24 37.5 C 81 15 96 05/09/24 08:00 175/60 H 05/09/24 08:00 05/09/24 08:00 Mechanical Vent 05/09/24 07:03 37.3 C 67 16 96 05/09/24 07:00 72 16 95 05/09/24 07:00 120/51 L 05/09/24 06:30 37.3 C 68 16 05/09/24 06:30 100/41 L 05/09/24 06:15 113/42 L 05/09/24 06:15 37.3 C 66 16 05/09/24 06:00 37.4 C 68 16 05/09/24 05:46 134/43 L 05/09/24 05:46 134/43 L 05/09/24 05:30 160/68 H 05/09/24 05:30 160/68 H 05/09/24 05:30 37.5 C 75 13 05/09/24 05:15 152/60 H 05/09/24 05:09 37.6 C H 73 17 05/09/24 05:01 157/77 H 05/09/24 04:46 164/63 H FiO2 05/09/24 16:15 05/09/24 16:01 05/09/24 16:00 05/09/24 16:00 05/09/24 15:03 05/09/24 15:00 05/09/24 14:42 05/09/24 14:06 05/09/24 14:00 05/09/24 13:42 05/09/24 13:00 05/09/24 13:00 05/09/24 12:00 05/09/24 12:00 05/09/24 12:00 05/09/24 12:00 30 05/09/24 11:00 05/09/24 11:00 05/09/24 11:00 30 05/09/24 10:01 05/09/24 10:00 05/09/24 09:01 05/09/24 09:00 05/09/24 08:24 05/09/24 08:00 05/09/24 08:00 05/09/24 08:00 05/09/24 07:03 05/09/24 07:00 05/09/24 07:00 05/09/24 06:30 05/09/24 06:30 05/09/24 06:15 05/09/24 06:15 05/09/24 06:00 05/09/24 05:46 05/09/24 05:46 05/09/24 05:30 05/09/24 05:30 05/09/24 05:30 05/09/24 05:15 05/09/24 05:09 05/09/24 05:01 05/09/24 04:46
[2024-05-09] MEDS ORDERED: Nursing to Pharmacy Communication SCH (20:00)
[2024-05-10 05:12] LABS: Hematocrit (blood only) 27.4 % (37.0-47.0); Hemoglobin 9.2 g/dl (12.0-16.0); Mean Corpuscular Hemoglobin 33.7 pg (25.0-34.0); Mean Corpuscular Hgb Conc 33.6 g/dL (32.0-36.0); Mean Corpuscular Volume 100.4 fL (80.0-100.0); Mean Platelet Volume 10.5 fL (9.4-12.4); Platelet Count 236 K/uL (130-400); RDW Coefficient of Variation 14.2 % (11.5-14.5); RDW Standard Deviation 51.5 fL (36.4-46.3); Red Blood Count 2.73 M/uL (4.20-5.40); White Blood Count 10.26 K/ul (4.8-10.8)
[2024-05-10 05:25] LABS: BUN Creatinine Ratio 5.3 (10-20); Calcium 9.4 mg/dl (8.6-10.3); Creatinine Clr Calc Pharmacy 6.9 ml/min; Magnesium 2.1 mg/dl (1.7-2.4); Phosphorus 5.3 mg/dl (2.5-4.9); Potassium 3.3 mmol/L (3.5-5.1)
--- NOTE | 2024-05-10 07:32 | Critical Care Progress Note ---
Date of Service May 10, 2024 Assessment & Plan (1) Sepsis: (2) Acute hypoxemic respiratory failure: (3) Pneumonia: (4) Influenza A: (5) Acute metabolic encephalopathy: (6) Multifocal pneumonia: (7) Acute encephalopathy: Plan Reason Critically Ill: 1. Acute on chronic hypoxemic respiratory failure 2/2 #2 and limited respiratory reserve 2. Influenza A/superimposed bacterial infection 3. Metabolic encephalopathy 4. Possible UTI 5. Sepsis 6. NSTEMI, type II Neuro - [facility] ICU: Negative Continue home SSRI. Hold Lyrica for now Cardiac - -- Elevated troponin Likely type II FL 2D echo 05/08/2024: EF 50-55%, RV normal in size and function, mild to moderate MR Continue statin Continue midodrine Respiratory - -- Influenza A with superimposed bacterial pneumonia requiring intubation Extubated 05/09/2024 Referred to ID GI - No acute issues RENAL/LYTES - -- End-stage renal disease on hemodialysis Nephrology on board ENDO - -- Hypothyroidism Continue levothyroxine BG 140-180 per [facility] guidelines HEME - Patient with likely anemia of chronic disease. Macrocytosis noted. Will need further workup as an outpatient. ID - -- Influenza A with multifocal pneumonia Nasal MRSA positive Was given vancomycin initially, will complete the course with doxycycline for total of 7 days --Prophylaxis VTE: Heparin GI: Pantoprazole Lines: Peripheral Diet: Clear liquid advance as tolerated Plan: In/out: +170 Hypokalemia will be replaced while the patient is getting dialyzed Complete the course of antibiotics for total of 7 days by adding doxycycline Patient hemodynamically stable to be downgraded to medical floor. Case was discussed with primary team Please note the above document was generated using voice recognition software. It may contain grammatical, syntax or spelling errors.Any formal questions or concerns about the content, text or information contained within the body of this dictation should be directly addressed to the provider for clarification. Admission and Anticipated Discharge Date Admission Date: May 06, 2024 Subjective Patient seen and examined at bedside. No acute distress, no adverse events overnight She was saturating 98-99% on 2 L nasal cannula. I went down to 1 L. She is hard to hear but answered all the questions appropriately Denies any nausea vomiting No chest pain, no abdominal pain She was getting dialysis when I saw her. Review of Systems 2 Review of Systems: All systems reviewed & are unremarkable except as noted in Subjective Physical Exam 2 Physical Exam: Constitutional: No acute distress HEENT: EOMI, PERRLA, hard to hear Respiratory system: Decreased air entry bilaterally, no wheeze, no rhonchi, positive crackles bilateral lower lobes CVS: S1-S2 positive, no murmurs or gallops Abdomen: Soft, nontender, nondistended, positive bowel sounds x4, obese Extremities: +2 pulses bilaterally radialis/ dorsalis pedis, no cyanosis, +1 pitting edema bilateral lower extremity Neuro: Awake alert oriented x3 Psych: Normal mood and affect G/U: No Kirby Skin: no rashes, warm and dry Lymphatic: no cervical or axillary lymphadenopathy Results & Data Results & Data Vital Signs (Past 12 Hours) Vital Signs Temp Pulse Resp BP Pulse Ox Pulse Ox O2 Del Method 05/10/24 07:00 70 20 165/56 H 97 05/10/24 06:06 73 20 98 05/10/24 06:00 158/56 H 05/10/24 06:00 158/56 H 05/10/24 05:57 72 16 98 05/10/24 05:00 165/76 H 05/10/24 05:00 165/76 H 05/10/24 05:00 165/76 H 05/10/24 05:00 165/76 H 05/10/24 05:00 165/76 H 05/10/24 05:00 165/76 H 05/10/24 05:00 75 13 99 05/10/24 04:21 67 17 98 05/10/24 04:00 163/56 H 05/10/24 04:00 96 05/10/24 04:00 37.1 C 05/10/24 03:15 70 17 98 05/10/24 03:03 69 17 97 05/10/24 03:00 157/54 H 05/10/24 02:51 72 18 98 05/10/24 02:01 176/58 H 05/10/24 02:00 75 16 96 05/10/24 01:18 78 19 95 05/10/24 00:09 75 16 98 05/10/24 00:00 178/63 H 05/10/24 00:00 178/63 H 05/10/24 00:00 96 05/10/24 00:00 71 05/10/24 00:00 37.1 C 05/09/24 23:54 82 17 99 05/09/24 23:00 169/58 H 05/09/24 23:00 169/58 H 05/09/24 23:00 73 18 99 05/09/24 22:13 77 20 97 05/09/24 22:01 170/53 H 05/09/24 22:01 170/53 H 05/09/24 22:00 75 21 170/53 H 94 05/09/24 21:05 77 18 95 05/09/24 21:00 168/61 H 05/09/24 20:59 80 20 95 05/09/24 20:02 81 20 95 05/09/24 20:00 37.4 C 05/09/24 20:00 99 05/09/24 20:00 Nasal Cannula 05/09/24 20:00 153/65 H 05/09/24 20:00 153/65 H 05/09/24 19:56 77 18 97 O2 Del Method O2 Flow Rate O2 Flow Rate FiO2 05/10/24 07:00 05/10/24 06:06 05/10/24 06:00 05/10/24 06:00 05/10/24 05:57 05/10/24 05:00 05/10/24 05:00 05/10/24 05:00 05/10/24 05:00 05/10/24 05:00 05/10/24 05:00 05/10/24 05:00 05/10/24 04:21 05/10/24 04:00 05/10/24 04:00 CPAP 2 05/10/24 04:00 05/10/24 03:15 05/10/24 03:03 05/10/24 03:00 05/10/24 02:51 05/10/24 02:01 05/10/24 02:00 05/10/24 01:18 05/10/24 00:09 05/10/24 00:00 05/10/24 00:00 05/10/24 00:00 CPAP 2 05/10/24 00:00 05/10/24 00:00 05/09/24 23:54 05/09/24 23:00 05/09/24 23:00 05/09/24 23:00 05/09/24 22:13 30 05/09/24 22:01 05/09/24 22:01 05/09/24 22:00 05/09/24 21:05 05/09/24 21:00 05/09/24 20:59 05/09/24 20:02 05/09/24 20:00 05/09/24 20:00 Nasal Cannula 2 05/09/24 20:00 2 05/09/24 20:00 05/09/24 20:00 05/09/24 19:56 Laboratory Results 05/10/24 04:42 05/10/24 04:42 Coding Level of Care Code 62927 SUB INP/OBS CARE 3/50MIN Diagnoses Sepsis A41.9 Acute hypoxemic respiratory failure J96.01 Pneumonia J18.9 Influenza A J10.1 Acute metabolic encephalopathy G93.41 Multifocal pneumonia J18.9 Acute encephalopathy G93.40
--- NOTE | 2024-05-10 08:38 | Electrocardiogram Report ---
Test Reason : Blood Pressure : */* mmHG Vent. Rate : 85 BPM Atrial Rate : 85 BPM P-R Int : 174 ms QRS Dur : 142 ms QT Int : 436 ms P-R-T Axes : 51 7 66 degrees QTcB Int : 518 ms Sinus rhythm with Premature atrial complexes with Aberrant conduction Left bundle branch block Abnormal ECG When compared with ECG of 17-Feb-2024 09:40, Premature ventricular complexes are no longer Present Aberrant conduction is now Present Confirmed by Angel Lopez ([id number]) on 05/08/2024 10:00:21 AM Also confirmed by Angel Lopez ([id number]), purchase request editor Miguel Purdy ([id number]) on 05/10/2024 8:38:18 AM Referred By: Neel Robertson Confirmed By: Angel Lopez
[2024-05-10] MEDS: EPOETIN ALFA 10,000 UNITS/ML VIAL IV ONE (10:41)
--- NOTE | 2024-05-10 14:59 | Electrocardiogram Report ---
Test Reason : Blood Pressure : */* mmHG Vent. Rate : 99 BPM Atrial Rate : 99 BPM P-R Int : 172 ms QRS Dur : 152 ms QT Int : 414 ms P-R-T Axes : 51 42 96 degrees QTcB Int : 531 ms Sinus rhythm with Fusion complexes Left bundle branch block Abnormal ECG When compared with ECG of 07-May-2024 01:11, Fusion complexes are now Present Premature ventricular complexes are no longer Present Vent. rate has increased by 54 bpm T wave inversion now evident in Lateral leads QT has lengthened Confirmed by Angel Lopez ([id number]) on 05/10/2024 2:59:36 PM Referred By: Neel Robertson Confirmed By: Angel Lopez
--- NOTE | 2024-05-10 17:17 | Dialysis Progress Note ---
Date of Service May 10, 2024 Assessment & Plan (1) ESRD (end stage renal disease) on dialysis: Plan: tolerated HD today 3 L (original target was 3.5); did not tneed pressors. severe illness but improving > extub'd 05/09 after Acute resp failure on ventilator. had pressor needs earlier this stay Will try to aim for SBP > 90 does take midodrine as OP She had elevated WBC and had evidence of Sepsis--all cxs negative. ABx for superimposed ? PNA Does have Inf A though mild hypokalemia > ran [address]R and CT shows e/o Pulm edema and pl eff and Multifocal pneumonia. will try to take whatever we can. >eval for HD tomorrow (2) Acute on chronic hypoxic respiratory failure: Plan: has COpd 2with chronic o2 but now lot worse with Intubation and ventillator status. has some Pulm congestion also so will try to take some fluid off as allowed by BP. (3) Influenza A: Plan: Having severe presentation with this. Makes everything more difficult including Dialysis. Admission and Anticipated Discharge Date Admission Date: May 06, 2024 Subjective delayed note entered for encounter from 11 AM today pt seen on dialysis. denies sob, musculoskeletal pain, N, cramps. extubated late yesterday Review of Systems 2 Review of Systems: All systems reviewed & are unremarkable except as noted in Subjective Physical Exam 2 Constitutional: well developed and well nourished Eyes: EOM intact bilaterally ENMT: Ears: + hearing impairment Nose: no external nose abnormality M outh: + dry oral mucous membranes Respiratory: normal respiratory effort and + cough (frequent) Auscultation: + diminished lung sounds Cardiovascular: RRR, no murmur, no edema Extremities: + AV fistula ( R arm + t/b) Gastrointestinal (Abdomen): Inspection/Auscultation: normal bowel sounds P ercussion/Palpation: abdomen soft; abdomen nontender Musculoskeletal: Extremities: strength 5/5 throughout Skin: no rashes, warm and dry Neurologic: caballero, fluent speech, no tremor Results & Data Vital Signs (Past 12 Hours) Vital Signs Temp Pulse Pulse Resp BP BP Pulse Ox 05/10/24 16:34 37.3 C 05/10/24 16:01 142/78 H 05/10/24 16:00 85 05/10/24 15:57 88 16 91 05/10/24 15:31 148/58 H 05/10/24 15:27 87 19 93 05/10/24 15:00 144/76 H 05/10/24 14:30 85 22 92 05/10/24 14:03 83 21 91 05/10/24 14:00 137/70 05/10/24 14:00 137/70 05/10/24 14:00 137/70 05/10/24 14:00 137/70 05/10/24 13:57 94 H 13 91 05/10/24 13:30 107/64 05/10/24 13:30 87 26 H 91 05/10/24 13:03 85 24 93 05/10/24 13:00 122/74 05/10/24 13:00 122/74 05/10/24 13:00 122/74 05/10/24 13:00 122/74 05/10/24 13:00 122/74 05/10/24 12:40 37.1 C 83 117/48 L 05/10/24 12:38 117/48 L 05/10/24 12:33 76 19 94 05/10/24 12:30 119/54 L 05/10/24 12:30 119/54 L 05/10/24 12:30 119/54 L 05/10/24 12:30 82 18 97 05/10/24 12:30 77 119/54 L 05/10/24 12:15 88 20 96 05/10/24 12:09 105/57 L 05/10/24 12:09 105/57 L 05/10/24 12:01 112/48 L 05/10/24 12:00 37.1 C 05/10/24 12:00 92 H 112/48 L 05/10/24 11:57 77 21 98 05/10/24 11:30 139/58 L 05/10/24 11:30 84 139/58 L 05/10/24 11:18 70 18 99 05/10/24 11:01 127/55 L 05/10/24 11:01 127/55 L 05/10/24 11:00 75 20 99 05/10/24 11:00 74 127/55 L 05/10/24 10:30 137/52 L 05/10/24 10:30 69 137/52 L 05/10/24 10:27 74 20 99 05/10/24 10:03 76 20 99 05/10/24 10:00 146/60 H 05/10/24 10:00 71 146/60 H 05/10/24 09:54 78 21 99 05/10/24 09:31 159/63 H 05/10/24 09:30 78 159/63 H 05/10/24 09:27 73 19 98 05/10/24 09:15 74 21 99 05/10/24 09:01 161/61 H 05/10/24 09:01 36.9 C 66 05/10/24 08:54 69 20 98 05/10/24 08:49 143/61 H 05/10/24 08:49 143/61 H 05/10/24 08:49 143/61 H 05/10/24 08:45 67 18 96 05/10/24 08:03 74 15 98 05/10/24 08:01 180/68 H 05/10/24 08:00 05/10/24 08:00 05/10/24 07:51 69 19 97 05/10/24 07:00 70 20 165/56 H 97 05/10/24 06:06 73 20 98 05/10/24 06:00 158/56 H 05/10/24 06:00 158/56 H 05/10/24 05:57 72 16 98 O2 Del Method O2 Flow Rate 05/10/24 16:34 05/10/24 16:01 05/10/24 16:00 05/10/24 15:57 Room Air 05/10/24 15:31 05/10/24 15:27 05/10/24 15:00 05/10/24 14:30 05/10/24 14:03 05/10/24 14:00 05/10/24 14:00 05/10/24 14:00 05/10/24 14:00 05/10/24 13:57 05/10/24 13:30 05/10/24 13:30 05/10/24 13:03 05/10/24 13:00 05/10/24 13:00 05/10/24 13:00 05/10/24 13:00 05/10/24 13:00 05/10/24 12:40 05/10/24 12:38 05/10/24 12:33 05/10/24 12:30 05/10/24 12:30 05/10/24 12:30 05/10/24 12:30 05/10/24 12:30 05/10/24 12:15 05/10/24 12:09 05/10/24 12:09 05/10/24 12:01 05/10/24 12:00 05/10/24 12:00 05/10/24 11:57 05/10/24 11:30 05/10/24 11:30 05/10/24 11:18 05/10/24 11:01 05/10/24 11:01 05/10/24 11:00 05/10/24 11:00 05/10/24 10:30 05/10/24 10:30 05/10/24 10:27 05/10/24 10:03 05/10/24 10:00 05/10/24 10:00 05/10/24 09:54 05/10/24 09:31 05/10/24 09:30 05/10/24 09:27 05/10/24 09:15 05/10/24 09:01 05/10/24 09:01 05/10/24 08:54 05/10/24 08:49 05/10/24 08:49 05/10/24 08:49 05/10/24 08:45 05/10/24 08:03 05/10/24 08:01 05/10/24 08:00 Nasal Cannula 05/10/24 08:00 Nasal Cannula 1 05/10/24 07:51 05/10/24 07:00 05/10/24 06:06 05/10/24 06:00 05/10/24 06:00 05/10/24 05:57 Laboratory Results 05/10/24 04:42 05/10/24 04:42
--- NOTE | 2024-05-10 17:52 | Hospitalist Progress Note ---
Date of Service May 10, 2024 Assessment & Plan (1) Acute hypoxemic respiratory failure: (2) Acute metabolic encephalopathy: (3) Influenza A: Plan Patient is a 78-year-old female with past medical history of ESRD on hemodialysis, COPD on 3 L of oxygen, Parkinson's disease, hypothyroidism, type 2 diabetes mellitus, RENÉ, hyperlipidemia, generalized anxiety disorder who was sent from [facility] after she was found to be confused and short of breath. Acute on chronic hypoxic respiratory failure Acute metabolic encephalopathy/delirium Influenza A Possible pneumonia --Chest CT:Accounting for respiratory artifact, there are subtle patchy opacities in the posterior right upper lobe, the superior and medial basal segment of the right lower lobe. Less prominent changes are noted involving the inferior aspect of the left upper lobe and the medial basal segment of the left lower lobe. These are all new from the previous examination. Multifocal pneumonia is not excluded. -- BioFire positive for influenza A -Procalcitonin 2.4 Nasal MRSA positive -Blood cultures negative to date -Urine cultures negative --Sputum culture grew normal rebecca Continue Tamiflu-empirically on Zosyn, vancomycin>> transition to Rocephin,Doxycycline -- Appreciate critical care input -- Extubated on 05/09/2024 -- Weaned off of pressors Plan to complete 7-day course of antibiotics Downgrade to PCU today Reorient frequently to minimize delirium Elevated troponin, Type II [place] Likely demand ischemia secondary to above in setting of end-stage renal disease Less likely ACS --ECHO: EF 50 to 55%. Right ventricle is normal size. Right ventricle systolic pressure is normal. Mild valvular aortic stenosis. Mild to moderate mitral regurgitation. Mild tricuspid regurgitation. Monitor End-stage renal disease Continue dialysis per nephrology Appreciate nephrology input Chronic conditions: Parkinson's disease; continue on carbidopa/levodopa Hypothyroidism; continue levothyroxine RENÉ on CPAP; currently intubated Orthostatic Hypotension; continue on midodrine CODE STATUS Conditional code DVT Px: Heparin SQ Admission and Anticipated Discharge Date Admission Date: May 06, 2024 Subjective Patient is seen and examined at bedside Poor historian due to confusion, hearing impairment Noted patient coughing during my encounter Discussed with critical care team today Having hemodialysis during my encounter Saturating well on 2 L supplemental oxygen Plan to downgrade out of ICU today Review of Systems Review of Systems: Other Physical Exam Physical Exam: Physical Exam: Vitals signs as noted above General Appearance:Obese, no apparent distress, confused Head: normocephalic, Atraumatic Eyes: normal inspection, EOMI Neck: supple, Trachea midline Respiratory/Chest: Decreased breath sounds, scattered crackles, No accessory muscle use Cardiovascular: S1, S2, No murmur Abdomen/GI:Soft, Non tender, Bowel sounds present Extremities/Musculoskeletal:normal inspection, 1+ edema Neurologic/Psych: Grossly no focal deficit Skin: normal color, warm Results & Data Results & Data Vital Signs (Past 12 Hours) Vital Signs Temp Pulse Pulse Resp BP BP Pulse Ox 05/10/24 16:34 37.3 C 05/10/24 16:01 142/78 H 05/10/24 16:00 85 05/10/24 15:57 88 16 91 05/10/24 15:31 148/58 H 05/10/24 15:27 87 19 93 05/10/24 15:00 144/76 H 05/10/24 14:30 85 22 92 05/10/24 14:03 83 21 91 05/10/24 14:00 137/70 05/10/24 14:00 137/70 05/10/24 14:00 137/70 05/10/24 14:00 137/70 05/10/24 13:57 94 H 13 91 05/10/24 13:30 107/64 05/10/24 13:30 87 26 H 91 05/10/24 13:03 85 24 93 05/10/24 13:00 122/74 05/10/24 13:00 122/74 05/10/24 13:00 122/74 05/10/24 13:00 122/74 05/10/24 13:00 122/74 05/10/24 12:40 37.1 C 83 117/48 L 05/10/24 12:38 117/48 L 05/10/24 12:33 76 19 94 05/10/24 12:30 119/54 L 05/10/24 12:30 119/54 L 05/10/24 12:30 119/54 L 05/10/24 12:30 82 18 97 05/10/24 12:30 77 119/54 L 05/10/24 12:15 88 20 96 05/10/24 12:09 105/57 L 05/10/24 12:09 105/57 L 05/10/24 12:01 112/48 L 05/10/24 12:00 37.1 C 05/10/24 12:00 92 H 112/48 L 05/10/24 11:57 77 21 98 05/10/24 11:30 139/58 L 05/10/24 11:30 84 139/58 L 05/10/24 11:18 70 18 99 05/10/24 11:01 127/55 L 05/10/24 11:01 127/55 L 05/10/24 11:00 75 20 99 05/10/24 11:00 74 127/55 L 05/10/24 10:30 137/52 L 05/10/24 10:30 69 137/52 L 05/10/24 10:27 74 20 99 05/10/24 10:03 76 20 99 05/10/24 10:00 146/60 H 05/10/24 10:00 71 146/60 H 05/10/24 09:54 78 21 99 05/10/24 09:31 159/63 H 05/10/24 09:30 78 159/63 H 05/10/24 09:27 73 19 98 05/10/24 09:15 74 21 99 05/10/24 09:01 161/61 H 05/10/24 09:01 36.9 C 66 05/10/24 08:54 69 20 98 05/10/24 08:49 143/61 H 05/10/24 08:49 143/61 H 05/10/24 08:49 143/61 H 05/10/24 08:45 67 18 96 05/10/24 08:03 74 15 98 05/10/24 08:01 180/68 H 05/10/24 08:00 05/10/24 08:00 05/10/24 07:51 69 19 97 05/10/24 07:00 70 20 165/56 H 97 05/10/24 06:06 73 20 98 05/10/24 06:00 158/56 H 05/10/24 06:00 158/56 H 05/10/24 05:57 72 16 98 O2 Del Method O2 Flow Rate 05/10/24 16:34 05/10/24 16:01 05/10/24 16:00 05/10/24 15:57 Room Air 05/10/24 15:31 05/10/24 15:27 05/10/24 15:00 05/10/24 14:30 05/10/24 14:03 05/10/24 14:00 05/10/24 14:00 05/10/24 14:00 05/10/24 14:00 05/10/24 13:57 05/10/24 13:30 05/10/24 13:30 05/10/24 13:03 05/10/24 13:00 05/10/24 13:00 05/10/24 13:00 05/10/24 13:00 05/10/24 13:00 05/10/24 12:40 05/10/24 12:38 05/10/24 12:33 05/10/24 12:30 05/10/24 12:30 05/10/24 12:30 05/10/24 12:30 05/10/24 12:30 05/10/24 12:15 05/10/24 12:09 05/10/24 12:09 05/10/24 12:01 05/10/24 12:00 05/10/24 12:00 05/10/24 11:57 05/10/24 11:30 05/10/24 11:30 05/10/24 11:18 05/10/24 11:01 05/10/24 11:01 05/10/24 11:00 05/10/24 11:00 05/10/24 10:30 05/10/24 10:30 05/10/24 10:27 05/10/24 10:03 05/10/24 10:00 05/10/24 10:00 05/10/24 09:54 05/10/24 09:31 05/10/24 09:30 05/10/24 09:27 05/10/24 09:15 05/10/24 09:01 05/10/24 09:01 05/10/24 08:54 05/10/24 08:49 05/10/24 08:49 05/10/24 08:49 05/10/24 08:45 05/10/24 08:03 05/10/24 08:01 05/10/24 08:00 Nasal Cannula 05/10/24 08:00 Nasal Cannula 1 05/10/24 07:51 05/10/24 07:00 05/10/24 06:06 05/10/24 06:00 05/10/24 06:00 05/10/24 05:57 Laboratory Results Short CBC 05/10/24 Range/Units 04:42 WBC 10.26 (4.8-10.8) K/ul Hgb 9.2 L (12.0-16.0) g/dl Hct 27.4 L (37.0-47.0) % Plt Count 236 (130-400) K/uL BMP 05/10/24 04:42 Sodium 136 Potassium 3.3 L Chloride 93 L Carbon Dioxide 25 BUN 41 H Creatinine 7.73 H* D Glucose 82 Calcium 9.4
[2024-05-10] MEDS: DOXYCYCLINE HYCLATE 100 MG CAP PO SCH (20:56)
[2024-05-11 05:52] LABS: BUN Creatinine Ratio 3.9 (10-20); Calcium 9.9 mg/dl (8.6-10.3); Creatinine Clr Calc Pharmacy 10.3 ml/min; Potassium 3.2 mmol/L (3.5-5.1)
[2024-05-11] MEDS: POTASSIUM CHLORIDE / WTR 10 MEQ/100 ML PLCT IV SCH (07:48)
[2024-05-11] MEDS: HEPARIN SOD (PORCINE) 1000 UNIT/ML IV ONE (11:25)
[2024-05-11] MEDS: EPOETIN ALFA 10,000 UNITS/ML VIAL IV ONE (11:44)
--- NOTE | 2024-05-11 12:13 | Dialysis Progress Note ---
Date of Service May 11, 2024 Assessment & Plan (1) ESRD (end stage renal disease) on dialysis: Plan: tolerated HD May 10 for 3 L . severe illness but improving > extub'd 05/09 after Acute resp failure on ventilator. had pressor needs earlier this stay. Will try to aim for SBP > 90 -on [id number] mg before HD, same as OP>> but consistently sbp 140s or more past 24 hrs >> hasn't had for several days She had elevated WBC and had evidence of Sepsis--all cxs negative. but plm edema, multifocal NIETO on CXR/CT and remains hypoxic ABx for superimposed ? PNA on flu A > doxy, ceftriax mild hypokalemia > ran 4 K bath and she had K riders CXR and CT shows e/o Pulm edema and pl eff and Multifocal pneumonia. will try to take whatever we can. >goal 2L UF today on short HD >for routine HD tomorrow venofer w/ HD today if t sat <25; also getting epo (2) Acute on chronic hypoxic respiratory failure: Plan: has COPD >>>NO baseline 02 <<< but now lot worse with Intubation and s/p ventilator status. has some Pulm congestion also so will try to take some fluid off as allowed by BP. (3) Influenza A: Plan: Having severe presentation with this. Makes everything more difficult including Dialysis. Admission and Anticipated Discharge Date Admission Date: May 06, 2024 Subjective Seen on dialysis. No acute interval events clinically except that she failed a swallow test today. Denies shortness of breath or uncontrolled musculoskeletal pain or chest discomfort. Review of Systems 2 Review of Systems: All systems reviewed & are unremarkable except as noted in Subjective Physical Exam 2 Constitutional: well developed and well nourished Eyes: EOM intact bilaterally ENMT: Ears: + hearing impairment Nose: no external nose abnormality M outh: + dry oral mucous membranes Respiratory: normal respiratory effort and + cough (Occasional) A uscultation: + diminished lung sounds Cardiovascular: RRR, no murmur, no edema Extremities: + AV fistula ( R arm + t/b) Gastrointestinal (Abdomen): Inspection/Auscultation: normal bowel sounds P ercussion/Palpation: abdomen soft; abdomen nontender Musculoskeletal: Extremities: strength 5/5 throughout Skin: no rashes, warm and dry Results & Data Vital Signs (Past 12 Hours) Vital Signs Temp Pulse Pulse Resp BP BP Pulse Ox 05/11/24 08:00 74 05/11/24 07:42 64 17 94 05/11/24 07:40 36.9 C 64 22 149/51 H 96 05/11/24 07:14 05/11/24 06:00 84 14 89 L 05/11/24 04:03 70 19 95 05/11/24 04:00 142/45 H 05/11/24 04:00 142/45 H 05/11/24 04:00 142/45 H 05/11/24 04:00 37.0 C 05/11/24 03:36 75 13 96 05/11/24 03:24 71 21 97 05/11/24 03:05 37.3 C 05/11/24 02:00 77 19 96 O2 Del Method O2 Flow Rate FiO2 05/11/24 08:00 05/11/24 07:42 Nasal Cannula 4 05/11/24 07:40 Oxymask 4 05/11/24 07:14 Nasal Cannula 3 05/11/24 06:00 05/11/24 04:03 05/11/24 04:00 05/11/24 04:00 05/11/24 04:00 05/11/24 04:00 05/11/24 03:36 05/11/24 03:24 30 05/11/24 03:05 05/11/24 02:00 Laboratory Results 05/10/24 04:42 05/11/24 04:37
[2024-05-11] MEDS: HEPARIN SOD (PORCINE) 1000 UNIT/ML IV SCH (13:39)
--- NOTE | 2024-05-11 14:30 | Hospitalist Progress Note ---
Date of Service May 11, 2024 Assessment & Plan (1) Acute hypoxemic respiratory failure: (2) Acute metabolic encephalopathy: (3) Influenza A: Plan Patient is a 78-year-old female with past medical history of ESRD on hemodialysis, COPD on 3 L of oxygen, Parkinson's disease, hypothyroidism, type 2 diabetes mellitus, RENÉ, hyperlipidemia, generalized anxiety disorder who was sent from [facility] after she was found to be confused and short of breath. Acute on chronic hypoxic respiratory failure Acute metabolic encephalopathy/delirium Influenza A Possible pneumonia --Chest CT:Accounting for respiratory artifact, there are subtle patchy opacities in the posterior right upper lobe, the superior and medial basal segment of the right lower lobe. Less prominent changes are noted involving the inferior aspect of the left upper lobe and the medial basal segment of the left lower lobe. These are all new from the previous examination. Multifocal pneumonia is not excluded. -- BioFire positive for influenza A -Procalcitonin 2.4 Nasal MRSA positive -Blood cultures negative to date -Urine cultures negative --Sputum culture grew normal rebecca Continue Tamiflu-empirically on Zosyn, vancomycin>> transition to Rocephin,Doxycycline -- Appreciate critical care input -- Extubated on 05/09/2024 -- Weaned off of pressors Plan to complete 7-day course of antibiotics Reorient frequently to minimize delirium Requiring 4 L supplemental oxygen to maintain saturation Will likely need rehab on discharge Elevated troponin, Type II [place] Likely demand ischemia secondary to above in setting of end-stage renal disease Less likely ACS --ECHO: EF 50 to 55%. Right ventricle is normal size. Right ventricle systolic pressure is normal. Mild valvular aortic stenosis. Mild to moderate mitral regurgitation. Mild tricuspid regurgitation. Monitor End-stage renal disease Continue dialysis per nephrology Appreciate nephrology input Had hemodialysis today Chronic conditions: Parkinson's disease; continue on carbidopa/levodopa Hypothyroidism; continue levothyroxine RENÉ on CPAP; currently intubated Orthostatic Hypotension; continue on midodrine CODE STATUS Conditional code DVT Px: Heparin SQ Admission and Anticipated Discharge Date Admission Date: May 06, 2024 Subjective Patient is seen and examined at bedside Poor historian due to confusion, hearing impairment Was having hemodialysis during my encounter today Patient failed swallow study today Pleasantly confused Denies any chest pain, dyspnea Saturating well on 4 L supplemental oxygen Review of Systems Review of Systems: Other Physical Exam Physical Exam: Physical Exam: Vitals signs as noted above General Appearance:Obese, no apparent distress, confused Head: normocephalic, Atraumatic Eyes: normal inspection, EOMI Neck: supple, Trachea midline Respiratory/Chest: Decreased breath sounds, scattered crackles, No accessory muscle use Cardiovascular: S1, S2, No murmur Abdomen/GI:Soft, Non tender, Bowel sounds present Extremities/Musculoskeletal:normal inspection, 1+ edema Neurologic/Psych: Grossly no focal deficit Skin: normal color, warm Results & Data Results & Data Vital Signs (Past 12 Hours) Vital Signs Temp Pulse Pulse Pulse Resp BP BP 05/11/24 13:20 36.6 C 72 125/47 L 05/11/24 13:00 80 74/44 L 05/11/24 12:50 73 94/46 L 05/11/24 12:40 94 H 81/41 L 05/11/24 12:20 84 109/60 05/11/24 12:00 88 98/57 L 05/11/24 11:30 75 116/56 L 05/11/24 11:05 67 145/60 H 05/11/24 10:56 36.8 C 64 05/11/24 08:00 74 05/11/24 07:42 64 17 05/11/24 07:40 36.9 C 64 22 149/51 H 05/11/24 07:14 05/11/24 06:00 84 14 05/11/24 04:03 70 19 05/11/24 04:00 142/45 H 05/11/24 04:00 142/45 H 05/11/24 04:00 142/45 H 05/11/24 04:00 37.0 C 05/11/24 03:36 75 13 05/11/24 03:24 71 21 05/11/24 03:05 37.3 C Pulse Ox O2 Del Method O2 Flow Rate FiO2 05/11/24 13:20 05/11/24 13:00 05/11/24 12:50 05/11/24 12:40 05/11/24 12:20 05/11/24 12:00 05/11/24 11:30 05/11/24 11:05 05/11/24 10:56 05/11/24 08:00 05/11/24 07:42 94 Nasal Cannula 4 05/11/24 07:40 96 Oxymask 4 05/11/24 07:14 Nasal Cannula 3 05/11/24 06:00 89 L 05/11/24 04:03 95 05/11/24 04:00 05/11/24 04:00 05/11/24 04:00 05/11/24 04:00 05/11/24 03:36 96 05/11/24 03:24 97 30 05/11/24 03:05 Laboratory Results BMP 05/11/24 04:37 Sodium 138 Potassium 3.2 L Chloride 96 L Carbon Dioxide 28 BUN 20 D Creatinine 5.15 H* D Glucose 91 Calcium 9.9
[2024-05-12 05:18] LABS: Hematocrit (blood only) 30.3 % (37.0-47.0); Mean Corpuscular Hemoglobin 33.3 pg (25.0-34.0); Mean Platelet Volume 10.2 fL (9.4-12.4); Nucleated RBC # (auto) 0.07 K/uL (0.00-0.12); Nucleated RBC % (auto) 0.5 %; Platelet Count 320 K/uL (130-400); RDW Coefficient of Variation 14.5 % (11.5-14.5); RDW Standard Deviation 53.1 fL (36.4-46.3); White Blood Count 15.38 K/ul (4.8-10.8)
[2024-05-12 06:07] LABS: BUN Creatinine Ratio 4.3 (10-20); Calcium 10.3 mg/dl (8.6-10.3); Creatinine Clr Calc Pharmacy 11.1 ml/min; Magnesium 2.1 mg/dl (1.7-2.4); Potassium 3.7 mmol/L (3.5-5.1)
--- NOTE | 2024-05-12 14:16 | Nephrology Progress Note ---
Date of Service May 12, 2024 Assessment & Plan (1) ESRD (end stage renal disease) on dialysis: Plan: tolerated HD May 10 for 3 L . had 1.5L UF on 05/11, shortened tx. refused HD on 05/12 routine tx. will reevaluate/reattempt in AM at her request. more frequent HD d/t ongoing 02 needs; does not wear as OP severe illness but improving > extub'd 05/09 after Acute resp failure on ventilator. had pressor needs earlier this stay. remains hypoxic Will try to aim for SBP > 90 -on [id number] mg before HD, same as OP>> but consistently sbp 130-160s or more past 24 hrs She has persistent elevated WBC and had evidence of Sepsis--all cxs negative. but plm edema, multifocal NIETO on CXR/CT and remains hypoxic ABx for superimposed ? PNA on flu A > doxy, ceftriax mild hypokalemia > no need to treat CXR and CT shows e/o Pulm edema and pl eff and Multifocal pneumonia. will try to take whatever we can. >>>>>>pt refused HD today consistently after d/w myself and my nurse >>>>>>will reattempt routine HD tomorrow t sat 46 this admission; also getting epo (2) Acute on chronic hypoxic respiratory failure: Plan: has COPD >>>NO baseline 02 <<< but now lot worse with Intubation and s/p ventilator status. has some Pulm congestion also so will try to take some fluid off as allowed by BP. (3) Influenza A: Plan: Had severe presentation with this. Makes everything more difficult including Dialysis. Admission and Anticipated Discharge Date Admission Date: May 06, 2024 Subjective pt seen in dialysis unit > she refused dialysis today after multiple reviews/discussions. denies sob. endorses some fatigue. Review of Systems 2 Review of Systems: All systems reviewed & are unremarkable except as noted in Subjective Physical Exam 2 Constitutional: well developed and well nourished Eyes: EOM intact bilaterally ENMT: Ears: + hearing impairment Nose: no external nose abnormality M outh: + dry oral mucous membranes Respiratory: normal respiratory effort Auscultation: + diminished lung sounds Cardiovascular: RRR, no murmur, no edema Extremities: + AV fistula ( R arm + t/b) Gastrointestinal (Abdomen): Inspection/Auscultation: normal bowel sounds P ercussion/Palpation: abdomen soft; abdomen nontender Musculoskeletal: Extremities: strength 5/5 throughout Skin: no rashes, warm and dry Results & Data Vital Signs (Past 12 Hours) Vital Signs Temp Pulse Pulse Pulse Resp BP BP 05/12/24 11:33 37.1 C 66 18 123/46 L 05/12/24 08:00 64 05/12/24 08:00 05/12/24 07:13 70 21 05/12/24 07:13 64 20 05/12/24 07:00 36.8 C 82 20 162/71 H 05/12/24 04:00 139/47 L 05/12/24 04:00 36.7 C 05/12/24 03:57 70 19 05/12/24 03:37 70 19 Pulse Ox O2 Del Method O2 Flow Rate FiO2 05/12/24 11:33 95 Nasal Cannula 2 05/12/24 08:00 05/12/24 08:00 Room Air 05/12/24 07:13 BiPAP 30 05/12/24 07:13 97 30 05/12/24 07:00 96 Room Air 05/12/24 04:00 05/12/24 04:00 05/12/24 03:57 96 05/12/24 03:37 98 30 Laboratory Results 05/12/24 04:53 05/12/24 04:53
[2024-05-12] MEDS: HEPARIN SOD (PORCINE) 1000 UNIT/ML IV SCH (14:47)
[2024-05-12] MEDS: EPOETIN ALFA 4,000 UNIT/ML VIAL IV ONE (14:47)
[2024-05-12] MEDS: HEPARIN SOD (PORCINE) 1000 UNIT/ML IV ONE (14:47)
--- NOTE | 2024-05-12 16:04 | Hospitalist Progress Note ---
Date of Service May 12, 2024 Assessment & Plan (1) Acute hypoxemic respiratory failure: (2) Acute metabolic encephalopathy: (3) Influenza A: Plan 78 yo F with ESRD on hemodialysis, COPD on 3 L of oxygen, Parkinson's disease, hypothyroidism, type 2 diabetes mellitus, RENÉ, hyperlipidemia, generalized anxiety disorder who was sent from [facility] after she was found to be confused and short of breath. Acute on chronic hypoxic respiratory failure Acute metabolic encephalopathy/delirium Influenza A Possible pneumonia --Chest CT:Accounting for respiratory artifact, there are subtle patchy opacities in the posterior right upper lobe, the superior and medial basal segment of the right lower lobe. Less prominent changes are noted involving the inferior aspect of the left upper lobe and the medial basal segment of the left lower lobe. These are all new from the previous examination. Multifocal pneumonia is not excluded. -- BioFire positive for influenza A -Procalcitonin 2.4 Nasal MRSA positive -Blood cultures negative to date -Urine cultures negative --Sputum culture grew normal rebecca Continue Tamiflu-empirically on Zosyn, vancomycin>> transition to Rocephin,Doxycycline -- Appreciate critical care input -- Extubated on 05/09/2024 -- Weaned off of pressors Plan to complete 7-day course of antibiotics Reorient frequently to minimize delirium Requiring 4 L supplemental oxygen to maintain saturation Will likely need rehab on discharge Currently on 2L of suppl. O2 Elevated troponin, Type II [place] Likely demand ischemia secondary to above in setting of end-stage renal disease Less likely ACS --ECHO: EF 50 to 55%. Right ventricle is normal size. Right ventricle systolic pressure is normal. Mild valvular aortic stenosis. Mild to moderate mitral regurgitation. Mild tricuspid regurgitation. Monitor End-stage renal disease Continue dialysis per nephrology Appreciate nephrology input Had hemodialysis today Chronic conditions: Parkinson's disease; continue on carbidopa/levodopa Hypothyroidism; continue levothyroxine RENÉ on CPAP; currently intubated Orthostatic Hypotension; continue on midodrine CODE STATUS Conditional code DVT Px: Heparin SQ Admission and Anticipated Discharge Date Admission Date: May 06, 2024 Subjective Patient seen in follow up Poor historian due to confusion, hearing impairment Refused hemodialysis today Patient failed swallow study yesterday Pleasant but not aware of being in the hospital Denies any chest pain, dyspnea Saturating well on 2 L supplemental oxygen Review of Systems Review of Systems: All systems reviewed & are unremarkable except as noted in Subjective Physical Exam Physical Exam: General Appearance:Obese, no apparent distress, confused Head: normocephalic, Atraumatic Eyes: normal inspection, EOMI Neck: supple Respiratory/Chest: Decreased breath sounds, No accessory muscle use Cardiovascular: S1, S2, No murmur Abdomen/GI:Soft, Non tender, Bowel sounds present Extremities/Musculoskeletal:normal inspection, 1+ edema Neurologic/Psych: Grossly no focal deficit Skin: normal color, warm Results & Data Results & Data Vital Signs (Past 12 Hours) Vital Signs Temp Pulse Pulse Pulse Resp BP Pulse Ox 05/12/24 12:00 05/12/24 12:00 64 05/12/24 11:33 37.1 C 66 18 123/46 L 95 05/12/24 08:00 64 05/12/24 08:00 05/12/24 07:13 70 21 05/12/24 07:13 64 20 97 05/12/24 07:00 36.8 C 82 20 162/71 H 96 O2 Del Method O2 Flow Rate FiO2 05/12/24 12:00 Nasal Cannula 2 05/12/24 12:00 05/12/24 11:33 Nasal Cannula 2 05/12/24 08:00 05/12/24 08:00 Room Air 05/12/24 07:13 BiPAP 30 05/12/24 07:13 30 05/12/24 07:00 Room Air Laboratory Results 05/12/24 05/12/24 05/11/24 Range/Units 11:39 04:53 23:00 WBC 15.38 H (4.8-10.8) K/ul RBC 3.00 L (4.20-5.40) M/uL Hgb 10.0 L (12.0-16.0) g/dl Hct 30.3 L (37.0-47.0) % MCV 101.0 H (80.0-100.0) fL MCH 33.3 (25.0-34.0) pg MCHC 33.0 (32.0-36.0) g/dL RDW Std Deviation 53.1 H (36.4-46.3) fL RDW Coeff of Bhavin 14.5 (11.5-14.5) % Plt Count 320 (130-400) K/uL MPV 10.2 (9.4-12.4) fL Absolute Nucleated RBC 0.07 (0.00-0.12) K/uL Nucleated RBC % (auto) 0.5 % Sodium 140 (136-145) mmol/L Potassium 3.7 (3.5-5.1) mmol/L Chloride 98 (98-107) mmol/L Carbon Dioxide 25 (21-32) mmol/L Anion Gap 17 H (3-11) BUN 20 (6-23) mg/dl Creatinine 4.68 H* D (0.6-1.2) mg/dl Est Cr Clr Drug Dosing 11.1 ml/min eGFR 9.11 BUN/Creatinine Ratio 4.3 L (10-20) Glucose 99 (70-99(Fasting)) mg/dl POC Glucose 96 87 (70-99) mg/dl Calcium 10.3 (8.6-10.3) mg/dl Magnesium 2.1 (1.7-2.4) mg/dl Influ A Subtyping (PCR) 05/11/24 05/06/24 Range/Units 18:20 18:57 WBC (4.8-10.8) K/ul RBC (4.20-5.40) M/uL Hgb (12.0-16.0) g/dl Hct (37.0-47.0) % MCV (80.0-100.0) fL MCH (25.0-34.0) pg MCHC (32.0-36.0) g/dL RDW Std Deviation (36.4-46.3) fL RDW Coeff of Bhavin (11.5-14.5) % Plt Count (130-400) K/uL MPV (9.4-12.4) fL Absolute Nucleated RBC (0.00-0.12) K/uL Nucleated RBC % (auto) % Sodium (136-145) mmol/L Potassium (3.5-5.1) mmol/L Chloride (98-107) mmol/L Carbon Dioxide (21-32) mmol/L Anion Gap (3-11) BUN (6-23) mg/dl Creatinine (0.6-1.2) mg/dl Est Cr Clr Drug Dosing ml/min eGFR BUN/Creatinine Ratio (10-20) Glucose (70-99(Fasting)) mg/dl POC Glucose 93 (70-99) mg/dl Calcium (8.6-10.3) mg/dl Magnesium (1.7-2.4) mg/dl Influ A Subtyping (PCR) Pending Medications Administered Current Inpatient Medications Acetaminophen (Acetaminophen 325 Mg Tab) 650 mg PO Q4H PRN PRN Reason: Fever/Mild Pain (Pain 1,2,3) Stop: 06/05/24 21:18 Albuterol (Albut/Ipratrop 3mg/0.5mg Neb 3 Ml Vial) 3 ml INH Q4H PRN PRN Reason: Dyspnea Stop: 06/05/24 21:18 Last Admin: 05/07/24 07:48 Dose: 3 ml Albuterol (Albut/Ipratrop 3mg/0.5mg Neb 3 Ml Vial) 3 ml INH TIDR [facility]; Protocol Stop: 05/16/24 23:59 Last Admin: 05/12/24 13:47 Dose: Not Given Aspirin (Aspirin 81 Mg Chew) 162 mg PO MoWeFr@0900 [facility] Stop: 06/06/24 08:59 Last Admin: 05/12/24 08:59 Dose: Not Given Atorvastatin Calcium (Atorvastatin 40 Mg Tab) 80 mg PO QPM [facility] Stop: 06/06/24 20:59 Last Admin: 05/11/24 19:14 Dose: Not Given Carbidopa/Levodopa (Carbidopa/Levodopa 25/100mg Tab) 1 tab PO TIDM [facility] Stop: 06/06/24 07:59 Last Admin: 05/12/24 12:00 Dose: Not Given Dextrose (Dextrose 50% 50 Ml Syringe) 25 - 50 ml IV UD PRN; Protocol PRN Reason: Hypoglycemia Protocol Stop: 06/06/24 00:38 Docusate Sodium (Docusate Sodium Syrup 100 Mg/10 Ml Udc) 100 mg PO DAILY [facility] Stop: 06/06/24 08:59 Last Admin: 05/12/24 08:59 Dose: Not Given Doxycycline Hyclate (Doxycycline Hyclate 100 Mg Cap) 100 mg PO BID [facility] Stop: 05/13/24 09:01 Last Admin: 05/12/24 08:59 Dose: Not Given Escitalopram Oxalate (Escitalopram Oxalate 10 Mg Tab) 10 mg PO QAM [facility] Stop: 06/06/24 08:59 Last Admin: 05/12/24 08:59 Dose: Not Given Fentanyl Citrate (Fentanyl Bolus From Bag) 50 mcg IV Q60M PRN PRN Reason: Pain or Agitation Stop: 05/20/24 21:18 Last Admin: 05/07/24 13:44 Dose: 50 mcg Glucagon (Glucagon For Inj 1 Mg Vial) 1 mg SQ UD PRN; Protocol PRN Reason: Hypoglycemia Protocol Stop: 06/06/24 00:38 Glucose (Glucose 40% Gel 15 Gm Tube) 15 - 30 gm PO UD PRN; Protocol PRN Reason: Hypoglycemia Protocol Stop: 06/06/24 00:38 Glucose (Glucose 10 Tab/Tube) 4 - 8 tab PO UD PRN; Protocol PRN Reason: Hypoglycemia Protocol Stop: 06/06/24 00:38 Heparin Sodium (Porcine) (Heparin Sod 5,000 Unit/0.5 Ml Vial) 5,000 units SQ Q8 [facility] Stop: 06/05/24 21:59 Last Admin: 05/12/24 13:31 Dose: 5,000 units Pantoprazole Sodium (Protonix) 40 mg in 10 mls @ 5 mls/min IV DAILY [facility] Stop: 06/06/24 08:59 Last Admin: 05/12/24 08:48 Dose: 5 mls/min Ceftriaxone Sodium (Rocephin) 2,000 mg in 50 mls @ 100 mls/hr IV DAILY@0900 [facility] Stop: 05/13/24 09:29 Last Infusion: 05/12/24 09:35 Dose: Infused Insulin Aspart (Insulin Aspart Per Unit Charge) 0 units SC Q6 [facility] Stop: 06/06/24 00:59 Last Admin: 05/12/24 12:00 Dose: Not Given Levothyroxine Sodium (Levothyroxine Sodium 125 Mcg Tablet) 125 mcg PO DAILYBB [facility] Stop: 06/06/24 06:29 Last Admin: 05/12/24 05:35 Dose: Not Given Lidocaine (Lidocaine 4% Cream 15 Gm Tube) 1 appln EXT PRN PRN PRN Reason: dialysis fistula Stop: 06/11/24 14:20 Midodrine (Midodrine Hcl 2.5 Mg Tab) 5 mg PO MoWeFr@0900 [facility] Stop: 06/06/24 08:59 Last Admin: 05/12/24 08:59 Dose: Not Given Midodrine (Midodrine Hcl 2.5 Mg Tab) 5 mg PO MoWeFr@0800 [facility] Stop: 06/06/24 07:59 Last Admin: 05/12/24 08:58 Dose: Not Given Miscellaneous (Pending Order: Give Oseltamivir (Tamiflu) After Each Hd Session) 1 each N/A DAILY@1200 [facility] Stop: 05/13/24 11:59 Last Admin: 05/12/24 12:33 Dose: Not Given Miscellaneous (Carbohydrates For Hypoglycemia ) 15 - 30 gm PO UD PRN PRN Reason: Hypoglycemia Protocol Stop: 06/06/24 00:38 Oseltamivir Phosphate (Oseltamivir Phosphate Susp 30 Mg/5 Ml Udp) 30 mg PO .after each HD session PRN PRN Reason: hemodialysis treatment Last Admin: 05/07/24 13:44 Dose: 30 mg Polyethylene Glycol (Polyethylene (Miralax) 17 Gm Pack) 17 gm NG DAILY [facility] Stop: 06/06/24 08:59 Last Admin: 05/12/24 08:59 Dose: Not Given Vitamin B Complex/Folic Acid (Nephrocaps) 1 cap PO DAILY [facility] Stop: 06/06/24 08:59 Last Admin: 05/12/24 08:59 Dose: Not Given Vitamin D (Cholecalciferol 25 Mcg (1000 Units) Tab) 25 mcg PO DAILY [facility] Stop: 06/06/24 08:59 Last Admin: 05/12/24 08:59 Dose: Not Given
--- NOTE | 2024-05-13 07:36 | Hospitalist Progress Note ---
Date of Service May 13, 2024 Assessment & Plan (1) Acute hypoxemic respiratory failure: (2) Acute metabolic encephalopathy: (3) Influenza A: Plan 78 yo F with ESRD on hemodialysis, COPD on 3 L of oxygen, Parkinson's disease, hypothyroidism, type 2 diabetes mellitus, RENÉ, hyperlipidemia, generalized anxiety disorder who was sent from [facility] after she was found to be confused and short of breath. Acute on chronic hypoxic respiratory failure Acute metabolic encephalopathy/delirium Influenza A Possible pneumonia --Chest CT:Accounting for respiratory artifact, there are subtle patchy opacities in the posterior right upper lobe, the superior and medial basal segment of the right lower lobe. Less prominent changes are noted involving the inferior aspect of the left upper lobe and the medial basal segment of the left lower lobe. These are all new from the previous examination. Multifocal pneumonia is not excluded. -- BioFire positive for influenza A -Procalcitonin 2.4 Nasal MRSA positive -Blood cultures negative to date -Urine cultures negative --Sputum culture grew normal rebecca Continue Tamiflu-empirically on Zosyn, vancomycin>> transitioned to Rocephin,Doxycycline -- Appreciate critical care input -- Extubated on 05/09/2024 -- Weaned off of pressors Plan to complete 7-day course of antibiotics Reorient frequently to minimize delirium Requiring 4 L supplemental oxygen to maintain saturation Will likely need rehab on discharge Currently on 2L of suppl. O2 05/13 WBC uptrending, will obtain CXR, will start zosyn Pt not able to provide hx + cough when takes a deep breath on lung exam ? aspiration Elevated troponin, Type II [place] Likely demand ischemia secondary to above in setting of end-stage renal disease Less likely ACS --ECHO: EF 50 to 55%. Right ventricle is normal size. Right ventricle systolic pressure is normal. Mild valvular aortic stenosis. Mild to moderate mitral regurgitation. Mild tricuspid regurgitation. Monitor End-stage renal disease Continue dialysis per nephrology Appreciate nephrology input Had hemodialysis today Chronic conditions: Parkinson's disease; continue on carbidopa/levodopa Hypothyroidism; continue levothyroxine RENÉ on CPAP; currently intubated Orthostatic Hypotension; continue on midodrine CODE STATUS Conditional code DVT Px: Heparin SQ Admission and Anticipated Discharge Date Admission Date: May 06, 2024 Subjective Patient seen in follow up Poor historian due to confusion, hearing impairment Refused hemodialysis yesterday, had HD today Patient failed swallow study -> video swallow study today - no aspiration but esoph. disease and speech recommends GI eval Yesterday pt pleasant but not aware of being in the hospital Denied any chest pain, dyspnea Today opens her eyes, takes a deep breath when asked to but does not answer my questions Review of Systems Review of Systems: Unobtainable due to cognitive status Physical Exam Physical Exam: General Appearance:Obese, no apparent distress, confused Head: normocephalic, Atraumatic Eyes: normal inspection, EOMI Neck: supple Respiratory/Chest: Decreased breath sounds, No accessory muscle use, + cough with deep inspiration Cardiovascular: S1, S2, No murmur Abdomen/GI:Soft, Non tender, Bowel sounds present Extremities/Musculoskeletal:normal inspection, 1+ edema Neurologic/Psych: Grossly no focal deficit Skin: normal color, warm Results & Data Results & Data Vital Signs (Past 12 Hours) Vital Signs Temp Pulse Pulse Pulse Resp BP Pulse Ox 05/13/24 07:19 68 05/13/24 07:19 05/13/24 07:12 36.8 C 87 18 137/76 97 05/13/24 06:55 05/13/24 03:59 36.8 C 75 18 146/82 H 94 05/13/24 03:05 65 20 94 05/12/24 23:10 78 20 96 05/12/24 23:02 74 05/12/24 22:38 36.7 C 69 20 152/81 H 94 05/12/24 20:56 95 05/12/24 20:56 88 L 05/12/24 19:43 05/12/24 19:40 36.7 C 68 18 127/79 94 O2 Del Method O2 Flow Rate 05/13/24 07:19 05/13/24 07:19 Nasal Cannula 1 05/13/24 07:12 Nasal Cannula 1 05/13/24 06:55 Ambu-Bag 05/13/24 03:59 CPAP 05/13/24 03:05 05/12/24 23:10 05/12/24 23:02 05/12/24 22:38 Nasal Cannula 1 05/12/24 20:56 Nasal Cannula 1 05/12/24 20:56 Room Air 05/12/24 19:43 Room Air 05/12/24 19:40 Nasal Cannula Laboratory Results 05/13/24 05/13/24 05/13/24 Range/Units Unknown 11:50 06:59 WBC 16.85 H (4.8-10.8) K/ul RBC 2.98 L (4.20-5.40) M/uL Hgb 10.1 L (12.0-16.0) g/dl Hct 30.8 L (37.0-47.0) % MCV 103.4 H (80.0-100.0) fL MCH 33.9 (25.0-34.0) pg MCHC 32.8 (32.0-36.0) g/dL RDW Std Deviation 54.1 H (36.4-46.3) fL RDW Coeff of Bhavin 14.4 (11.5-14.5) % Plt Count 396 (130-400) K/uL MPV 10.1 (9.4-12.4) fL Absolute Nucleated RBC 0.16 H (0.00-0.12) K/uL Nucleated RBC % (auto) 0.9 % Sodium 141 (136-145) mmol/L Potassium 3.7 (3.5-5.1) mmol/L Chloride 99 (98-107) mmol/L Carbon Dioxide 24 (21-32) mmol/L Anion Gap 18 H (3-11) BUN 32 H (6-23) mg/dl Creatinine 7.09 H* D (0.6-1.2) mg/dl Est Cr Clr Drug Dosing 7.3 ml/min eGFR 5.53 BUN/Creatinine Ratio 4.5 L (10-20) Glucose 95 (70-99(Fasting)) mg/dl POC Glucose 118 H (70-99) mg/dl Calcium 10.4 H (8.6-10.3) mg/dl Phosphorus 5.8 H (2.5-4.9) mg/dl Magnesium 2.2 (1.7-2.4) mg/dl Stl C. diff Tox B Gene Negative Cdiff Gene (Neg) 05/13/24 05/13/24 05/12/24 Range/Units 05:44 00:19 20:00 WBC (4.8-10.8) K/ul RBC (4.20-5.40) M/uL Hgb (12.0-16.0) g/dl Hct (37.0-47.0) % MCV (80.0-100.0) fL MCH (25.0-34.0) pg MCHC (32.0-36.0) g/dL RDW Std Deviation (36.4-46.3) fL RDW Coeff of Bhavin (11.5-14.5) % Plt Count (130-400) K/uL MPV (9.4-12.4) fL Absolute Nucleated RBC (0.00-0.12) K/uL Nucleated RBC % (auto) % Sodium (136-145) mmol/L Potassium (3.5-5.1) mmol/L Chloride (98-107) mmol/L Carbon Dioxide (21-32) mmol/L Anion Gap (3-11) BUN (6-23) mg/dl Creatinine (0.6-1.2) mg/dl Est Cr Clr Drug Dosing ml/min eGFR BUN/Creatinine Ratio (10-20) Glucose (70-99(Fasting)) mg/dl POC Glucose 101 H 99 98 (70-99) mg/dl Calcium (8.6-10.3) mg/dl Phosphorus (2.5-4.9) mg/dl Magnesium (1.7-2.4) mg/dl Stl C. diff Tox B Gene (Neg) 05/12/24 Range/Units 17:31 WBC (4.8-10.8) K/ul RBC (4.20-5.40) M/uL Hgb (12.0-16.0) g/dl Hct (37.0-47.0) % MCV (80.0-100.0) fL MCH (25.0-34.0) pg MCHC (32.0-36.0) g/dL RDW Std Deviation (36.4-46.3) fL RDW Coeff of Bhavin (11.5-14.5) % Plt Count (130-400) K/uL MPV (9.4-12.4) fL Absolute Nucleated RBC (0.00-0.12) K/uL Nucleated RBC % (auto) % Sodium (136-145) mmol/L Potassium (3.5-5.1) mmol/L Chloride (98-107) mmol/L Carbon Dioxide (21-32) mmol/L Anion Gap (3-11) BUN (6-23) mg/dl Creatinine (0.6-1.2) mg/dl Est Cr Clr Drug Dosing ml/min eGFR BUN/Creatinine Ratio (10-20) Glucose (70-99(Fasting)) mg/dl POC Glucose 97 (70-99) mg/dl Calcium (8.6-10.3) mg/dl Phosphorus (2.5-4.9) mg/dl Magnesium (1.7-2.4) mg/dl Stl C. diff Tox B Gene (Neg) Medications Administered Current Inpatient Medications Acetaminophen (Acetaminophen 325 Mg Tab) 650 mg PO Q4H PRN PRN Reason: Fever/Mild Pain (Pain 1,2,3) Stop: 06/05/24 21:18 Albuterol (Albut/Ipratrop 3mg/0.5mg Neb 3 Ml Vial) 3 ml INH Q4H PRN PRN Reason: Dyspnea Stop: 06/05/24 21:18 Last Admin: 05/07/24 07:48 Dose: 3 ml Albuterol (Albut/Ipratrop 3mg/0.5mg Neb 3 Ml Vial) 3 ml INH TIDR [facility]; Protocol Stop: 05/16/24 23:59 Last Admin: 05/13/24 06:55 Dose: 3 ml Aspirin (Aspirin 81 Mg Chew) 162 mg PO MoWeFr@0900 [facility] Stop: 06/06/24 08:59 Last Admin: 05/12/24 08:59 Dose: Not Given Atorvastatin Calcium (Atorvastatin 40 Mg Tab) 80 mg PO QPM [facility] Stop: 06/06/24 20:59 Last Admin: 05/12/24 20:41 Dose: Not Given Carbidopa/Levodopa (Carbidopa/Levodopa 25/100mg Tab) 1 tab PO TIDM [facility] Stop: 06/06/24 07:59 Last Admin: 05/13/24 07:17 Dose: Not Given Dextrose (Dextrose 50% 50 Ml Syringe) 25 - 50 ml IV UD PRN; Protocol PRN Reason: Hypoglycemia Protocol Stop: 06/06/24 00:38 Docusate Sodium (Docusate Sodium Syrup 100 Mg/10 Ml Udc) 100 mg PO DAILY [facility] Stop: 06/06/24 08:59 Last Admin: 05/13/24 07:18 Dose: Not Given Doxycycline Hyclate (Doxycycline Hyclate 100 Mg Cap) 100 mg PO BID [facility] Stop: 05/13/24 09:01 Last Admin: 05/13/24 07:18 Dose: Not Given Escitalopram Oxalate (Escitalopram Oxalate 10 Mg Tab) 10 mg PO QAM [facility] Stop: 06/06/24 08:59 Last Admin: 05/13/24 07:18 Dose: Not Given Fentanyl Citrate (Fentanyl Bolus From Bag) 50 mcg IV Q60M PRN PRN Reason: Pain or Agitation Stop: 05/20/24 21:18 Last Admin: 05/07/24 13:44 Dose: 50 mcg Glucagon (Glucagon For Inj 1 Mg Vial) 1 mg SQ UD PRN; Protocol PRN Reason: Hypoglycemia Protocol Stop: 06/06/24 00:38 Glucose (Glucose 40% Gel 15 Gm Tube) 15 - 30 gm PO UD PRN; Protocol PRN Reason: Hypoglycemia Protocol Stop: 06/06/24 00:38 Glucose (Glucose 10 Tab/Tube) 4 - 8 tab PO UD PRN; Protocol PRN Reason: Hypoglycemia Protocol Stop: 06/06/24 00:38 Heparin Sodium (Porcine) (Heparin Sod 5,000 Unit/0.5 Ml Vial) 5,000 units SQ Q8 [facility] Stop: 06/05/24 21:59 Last Admin: 05/13/24 05:44 Dose: 5,000 units Pantoprazole Sodium (Protonix) 40 mg in 10 mls @ 5 mls/min IV DAILY [facility] Stop: 06/06/24 08:59 Last Admin: 05/12/24 08:48 Dose: 5 mls/min Ceftriaxone Sodium (Rocephin) 2,000 mg in 50 mls @ 100 mls/hr IV DAILY@0900 [facility] Stop: 05/13/24 09:29 Last Infusion: 05/12/24 09:35 Dose: Infused Insulin Aspart (Insulin Aspart Per Unit Charge) 0 units SC Q6 [facility] Stop: 06/06/24 00:59 Last Admin: 05/13/24 05:55 Dose: Not Given Levothyroxine Sodium (Levothyroxine Sodium 125 Mcg Tablet) 125 mcg PO DAILYBB [facility] Stop: 06/06/24 06:29 Last Admin: 05/13/24 05:55 Dose: Not Given Lidocaine (Lidocaine 4% Cream 15 Gm Tube) 1 appln EXT PRN PRN PRN Reason: dialysis fistula Stop: 06/11/24 14:20 Midodrine (Midodrine Hcl 2.5 Mg Tab) 5 mg PO MoWeFr@0900 [facility] Stop: 06/06/24 08:59 Last Admin: 05/12/24 08:59 Dose: Not Given Midodrine (Midodrine Hcl 2.5 Mg Tab) 5 mg PO MoWeFr@0800 [facility] Stop: 06/06/24 07:59 Last Admin: 05/12/24 08:58 Dose: Not Given Miscellaneous (Pending Order: Give Oseltamivir (Tamiflu) After Each Hd Session) 1 each N/A DAILY@1200 [facility] Stop: 05/13/24 11:59 Last Admin: 05/12/24 12:33 Dose: Not Given Miscellaneous (Carbohydrates For Hypoglycemia ) 15 - 30 gm PO UD PRN PRN Reason: Hypoglycemia Protocol Stop: 06/06/24 00:38 Oseltamivir Phosphate (Oseltamivir Phosphate Susp 30 Mg/5 Ml Udp) 30 mg PO .after each HD session PRN PRN Reason: hemodialysis treatment Last Admin: 05/07/24 13:44 Dose: 30 mg Polyethylene Glycol (Polyethylene (Miralax) 17 Gm Pack) 17 gm NG DAILY [facility] Stop: 06/06/24 08:59 Last Admin: 05/13/24 07:18 Dose: Not Given Vitamin B Complex/Folic Acid (Nephrocaps) 1 cap PO DAILY [facility] Stop: 06/06/24 08:59 Last Admin: 05/13/24 07:18 Dose: Not Given Vitamin D (Cholecalciferol 25 Mcg (1000 Units) Tab) 25 mcg PO DAILY [facility] Stop: 06/06/24 08:59 Last Admin: 05/13/24 07:18 Dose: Not Given
[2024-05-13 07:40] LABS: Hematocrit (blood only) 30.8 % (37.0-47.0); Hemoglobin 10.1 g/dl (12.0-16.0); Mean Corpuscular Hemoglobin 33.9 pg (25.0-34.0); Mean Corpuscular Hgb Conc 32.8 g/dL (32.0-36.0); Mean Corpuscular Volume 103.4 fL (80.0-100.0); Mean Platelet Volume 10.1 fL (9.4-12.4); Nucleated RBC # (auto) 0.16 K/uL (0.00-0.12); Nucleated RBC % (auto) 0.9 %; Platelet Count 396 K/uL (130-400); RDW Coefficient of Variation 14.4 % (11.5-14.5); RDW Standard Deviation 54.1 fL (36.4-46.3); Red Blood Count 2.98 M/uL (4.20-5.40); White Blood Count 16.85 K/ul (4.8-10.8)
[2024-05-13 08:08] LABS: BUN Creatinine Ratio 4.5 (10-20); Calcium 10.4 mg/dl (8.6-10.3); Creatinine Clr Calc Pharmacy 7.3 ml/min; Magnesium 2.2 mg/dl (1.7-2.4); Phosphorus 5.8 mg/dl (2.5-4.9); Potassium 3.7 mmol/L (3.5-5.1)
[2024-05-13] MEDS: LIDOCAINE 4% CREAM 15 GM TUBE EXT PRN (09:29)
--- NOTE | 2024-05-13 11:32 | Nephrology Progress Note ---
Date of Service May 13, 2024 Assessment & Plan (1) ESRD (end stage renal disease) on dialysis: Plan: tolerated HD May 10 for 3 L . had 1.5L UF on 05/11, shortened tx. refused HD on 05/12 routine tx. refused 05/13 AM >>await swallow study results and will reevaluate/reattempt in PM at her request >> passed swallow study but still some concerns. pt very sleepy this PM > will reeval when twister in free > aware and concerned she has altered MS; if refuses this PM may need to c/s palliative for goals of care discussion more frequent HD d/t ongoing 02 needs; does not wear as OP severe illness but improving > extub'd 05/09 after Acute resp failure on ventilator. had pressor needs earlier this stay. remains hypoxic Will try to aim for SBP > 90 -on [id number] mg before HD, same as OP She has persistent elevated WBC and had evidence of Sepsis--all cxs negative. but plm edema, multifocal NIETO on CXR/CT and remains hypoxic ABx for superimposed ? PNA on flu A > doxy, ceftriax mild hypokalemia > no need to treat CXR and CT shows e/o Pulm edema and pl eff and Multifocal pneumonia. will try to take whatever we can. >>>>>>pt refused HD this AM consistently after d/w myself and my nurse >>>>>>will reattempt routine HD later this PM -EMLA cream applied to lower pain w/ HD t sat 46 this admission; also getting epo Care coordinated repeatedly w/ dialysis/floor RN by phone/ TText; care coordinated w/ Dr Tinajero by phone re refusals, swallowing status, plans of care; we are in agreement (2) Acute on chronic hypoxic respiratory failure: Plan: has COPD >>>NO baseline 02 <<< but now lot worse with Intubation and s/p ventilator status. has some Pulm congestion also so will try to take some fluid off as allowed by BP. (3) Influenza A: Plan: Had severe presentation with this. Makes everything more difficult including Dialysis. Admission and Anticipated Discharge Date Admission Date: May 06, 2024 Subjective delayed entry for 945 am visit; pt again today firmly declined HD; her focus/repeated ask was for food/ice chips. no pain, no sob. asked if she knows what happens if she doesn't do HD > stated she didn't know Review of Systems 2 Review of Systems: All systems reviewed & are unremarkable except as noted in Subjective Physical Exam 2 Constitutional: well developed and well nourished Eyes: EOM intact bilaterally ENMT: Ears: + hearing impairment Nose: no external nose abnormality M outh: + dry oral mucous membranes Respiratory: normal respiratory effort and + cough (Occasional) A uscultation: + diminished lung sounds Cardiovascular: RRR, no murmur, no edema Extremities: + AV fistula ( R arm + t/b) Gastrointestinal (Abdomen): Inspection/Auscultation: normal bowel sounds P ercussion/Palpation: abdomen soft; abdomen nontender Musculoskeletal: Extremities: strength 5/5 throughout Skin: no rashes, warm and dry Results & Data Vital Signs (Past 12 Hours) Vital Signs Temp Pulse Pulse Pulse Resp BP Pulse Ox 05/13/24 07:19 68 05/13/24 07:19 05/13/24 07:12 36.8 C 87 18 137/76 97 05/13/24 06:55 05/13/24 03:59 36.8 C 75 18 146/82 H 94 05/13/24 03:05 65 20 94 O2 Del Method O2 Flow Rate 05/13/24 07:19 05/13/24 07:19 Nasal Cannula 1 05/13/24 07:12 Nasal Cannula 1 05/13/24 06:55 Ambu-Bag 05/13/24 03:59 CPAP 05/13/24 03:05 Laboratory Results 05/13/24 06:59 05/13/24 06:59
--- NOTE | 2024-05-13 11:37 | Fluoroscopy Report ---
FL video swallow CLINICAL HISTORY: r/o aspiration. TECHNIQUE: Video fluoroscopic evaluation of swallowing was performed in the AP and lateral projection s by the speech pathology staff. The patient is fed nectar-thick and thin liquid barium, a barium coa sandrine wafer, and barium pudding. FLUOROSCOPY TIME: 1.8 minute. COMPARISON: None FINDINGS: There is penetration with liquid. No aspiration seen. IMPRESSION: No aspiration seen. ACT 112: Negative or not required by law. Electronically signed by: Zurdo Sanchez M.D. 05/13/2024 11:35 AM
[2024-05-13] MEDS ORDERED: Nursing to Pharmacy Communication SCH (11:45)
--- NOTE | 2024-05-13 12:33 | Gastrointestinal Consultation ---
Date of Consultation May 13, 2024 Assessment & Plan (1) Dysphagia: Plan Patient is a 78 year old female with history of parkinson's, admitted with Flu A, acute respiratory failure, and metabolic encephalopathy. Recently, she had a video fluoroscopy done showing no aspiration. Speech recommended an easy to chew diet with thins, but patient has not had a chance to attempt this yet. she was uncooperative with history taking. she would awaken to talking with her, but she would not answer questions and returned to sleep. She had unremarkable EGD about 15 months ago. - she had 3 EGDs done in 2022. EGD done 01/2023 was unremarkable. Given her current overall status, no plans for repeat EGD at this time. - continue with protonix 40mg IV once daily. - would await to see how she does with the diet recommended by speech. she has not had a chance to try this yet per nursing. History of Present Illness Reason for Consultation: dysphagia, speech recommends GI Requesting Physician: Renan Tinajero MD Attending Physician: Renan Tinajero MD History of Present Illness Patient is a 78 year old female with a past medical history of ESRD on hemodialysis, COPD on 3 L of oxygen, Parkinson's disease, hypothyroidism, type II diabetes mellitus, RENÉ, hyperlipidemia, and generalized anxiety disorder who was sent from [facility] after she was found to be confused and short of breath on 05/06/24. Patient was admitted with the flu, acute respiratory fa ilure, and metabolic encephalopathy. She had a video fluoroscopy on 05/13/24 showing no aspiration. Speech recommended an easy to chew diet with thins. Patient just recently got her first tray since being NPO and has no attempted eating yet. Patient is lethargic and will not stay awake to answer questions. History obtained from the chart as well as nursing. per nursing, patient has been refusing dialysis. video fluoroscopy 05/13/24 no aspiration. EGD 01/2023 normal esophagus, normal stomach, normal examined duodenum. Allergies Allergy/AdvReac Type Severity Reaction Status Date / Time No Known Allergies Allergy Verified 05/06/24 20:04 Home Medications Medication Instructions Recorded Confirmed Type aspirin 81 mg tablet,delayed 162 mg PO 3XWK 11/15/21 05/06/24 History release atorvastatin 80 mg tablet 80 mg PO QPM 11/15/21 05/06/24 History carbidopa 25 mg-levodopa 100 mg 1 tab PO TIDM 11/15/21 05/06/24 History tablet docusate sodium 100 mg capsule 100 mg PO DAILY 11/15/21 05/06/24 History (Colace) levothyroxine 125 mcg tablet 125 mcg PO QAM 11/15/21 05/06/24 History pregabalin 100 mg capsule 100 mg PO BID 11/15/21 05/06/24 History pantoprazole 20 mg tablet,delayed 20 mg PO BID 05/23/22 05/06/24 History release epinephrine 0.3 mg/0.3 mL 0.3 mg IM DIRECTED PRN 09/05/22 05/06/24 History injection, auto-injector (EpiPen) Anaphylaxis melatonin 10 mg tablet 10 mg PO HS 09/05/22 05/06/24 History ferric citrate 210 mg iron tablet 420 mg PO WM 01/21/23 05/06/24 History (Auryxia) fluticasone furoate 200 1 inh inhalation AMHS 01/21/23 05/06/24 History mcg-vilanterol 25 mcg/dose inhalation powder (Breo Ellipta) cholecalciferol (vitamin D3) 25 25 mcg PO DAILY 10/27/23 05/06/24 History mcg (1,000 unit) capsule midodrine 5 mg tablet 5 mg PO TID 10/27/23 05/06/24 History vitamin B complex-vitamin C-folic 1 tab PO DAILY 10/27/23 05/06/24 History acid 0.8 mg tablet (Nanci-Samuel) acetaminophen 325 mg tablet 325 - 650 mg PO Q6 PRN MILD-SEVERE 05/06/24 05/06/24 History PAIN acetaminophen 500 mg tablet 500 mg PO QID 3G 05/06/24 05/06/24 History dextromethorphan-guaifenesin 10 2.5 ml PO Q4 PRN Cough 05/06/24 05/06/24 History mg-200 mg/5 mL oral liquid diclofenac sodium 1 % topical gel 2 g topical QID 05/06/24 05/06/24 History escitalopram oxalate 10 mg tablet 10 mg PO QAM 05/06/24 05/06/24 History ferric citrate 210 mg iron tablet 210 mg PO . NEEDED PRN WITH 05/06/24 05/06/24 History (Auryxia) SNACKS guaifenesin 100 mg/5 mL oral 200 mg PO Q4H PRN Cough 05/06/24 05/06/24 History liquid (Siltussin SA) ipratropium 0.5 mg-albuterol 3 mg 3 ml inhalation Q4 PRN Wheezing 05/06/24 05/06/24 History (2.5 mg base)/3 mL nebulization soln ipratropium 0.5 mg-albuterol 3 mg 3 ml inhalation TID 05/06/24 05/06/24 History (2.5 mg base)/3 mL nebulization soln lidocaine-prilocaine 2.5 %-2.5 % 1 applic topical 3XWK 05/06/24 05/06/24 History topical cream midodrine 10 mg tablet 5 mg PO 3XWK 05/06/24 05/06/24 History midodrine 5 mg tablet 5 mg PO UD 05/06/24 05/06/24 History ondansetron HCl 4 mg tablet 4 mg PO Q6H PRN Nausea And Vomiting 05/06/24 05/06/24 History sertraline 25 mg tablet 25 mg PO UD 05/06/24 05/06/24 History sertraline 50 mg tablet 50 mg PO QAM 05/06/24 05/06/24 History Patient History Medical History ESRD on hemodialysis Thickened endometrium Acute ischemic stroke NSTEMI (non-ST elevated myocardial infarction) Elevated troponin I level AV fistula R arm Limb alert care status R arm History of recent hospitalization d/c 09/09/22>per medical record, pt sent to ER at [facility] following dialysis for reddened sores on her buttocks. Admitting dx was enterococcus UTI, decubitus ulcer and sacral cellulitis. Difficult intravenous access Black stools Mobility impaired pt non compliant with hx pt treatments / PT IS IN WHEELCHAIR/TOTAL ASSIST Poor short term memory KARUK (hard of hearing) COPD (chronic obstructive pulmonary disease) no medications for currently History of stroke 2019- pts spouse poor historian pt denies hx stroke History of anesthesia reaction "hard time waking up" Hx: recurrent pneumonia History of COVID-19 ? early 2021- mild congestion, no hospitalization, no current issues Non-ST elevation PR (NSTEMI) pt spouse not sure/ mild ? remembers something mentioned in hx/ ? details ESRD (end stage renal disease) on dialysis tues, thur & sat ([place]) Aspiration pneumonia HX Morbid obesity Rheumatoid arthritis ? current status/no meds for Chronic diastolic heart failure EF 50% on 01/2020 echo RACHEL (iron deficiency anemia) Subdural hematoma hx fall 2019 - tx to [facility]/no surgical intervention RENÉ on CPAP Depression Meniere's disease Generalized anxiety disorder Dyslipidemia Restless leg syndrome Diabetes mellitus, type II hx / NO MEDS HTN (hypertension) Surgical History Hx of arteriovenostomy for renal dialysis right arm History of tubal ligation History of carpal tunnel surgery B/L History of orthopedic surgery " bilat heel surgery" H/O sinus surgery Hx of total knee arthroplasty B/L Family History Other AAA (abdominal aortic aneurysm) Diabetes Family history non-contributory Hypertension Myotonic dystrophy Social History Smoking Status: Unknown if ever smoked Tobacco Type: Cigarettes Cigarettes Per Day: 0.25ppd; Second Hand Exposure: No; Do You Dip or Chew Tobacco: No; Hx Alcohol Use: No Hx Substance Use: No Preferred Language: Israeli Communication Ability: Impaired Communication Ability Comment: intubated Galley Boy Required: No Beliefs That Will Affect Care: None marital status: Current Living Situation: Jail Current Living Situation Comment: [facility] Other Information That Helps Us Care for You: No Feels Safe at Home: Yes Safety Concerns: Feels Safe At This Time Assistive Devices: Mechanical Lift, Oxygen - Continuous and Wheelchair Review of Systems Review of Systems: Unobtainable due to cognitive status Physical Exam Respiratory: normal respiratory effort Cardiovascular: regular rate and rhythm. Gastrointestinal (Abdomen): soft, normal bowel sounds. Psychiatric: lethargic. Results & Data Vital Signs (Past 12 Hours) Vital Signs Temp Pulse Pulse Pulse Resp BP Pulse Ox 05/13/24 11:54 98.2 F 73 16 136/91 92 05/13/24 07:19 68 05/13/24 07:19 05/13/24 07:12 98.2 F 87 18 137/76 97 05/13/24 06:55 05/13/24 03:59 98.2 F 75 18 146/82 H 94 05/13/24 03:05 65 20 94 O2 Del Method O2 Flow Rate 05/13/24 11:54 Nasal Cannula 1 05/13/24 07:19 05/13/24 07:19 Nasal Cannula 1 05/13/24 07:12 Nasal Cannula 1 05/13/24 06:55 Ambu-Bag 05/13/24 03:59 CPAP 05/13/24 03:05 Coding Level of Care Code 37314 INT INP/OBS CARE MIN Diagnoses Dysphagia R13.10
[2024-05-13] MEDS: INSULIN ASPART PER UNIT CHARGE SC SCH (12:43)
--- NOTE | 2024-05-13 13:25 | XRay Report ---
XR chest 1V portable CLINICAL HISTORY: leukocytosuis,? aspiration COMPARISON STUDY: 05/08/2024 FINDINGS: There is interval extubation. There is stable cardiomegaly without pulmonary vascular conge stion. Inspiration is shallow. There is stable mild stranding at the left lung base. No new consolida tion or pleural effusion. No pneumothorax. IMPRESSION: Interval extubation. Otherwise stable. ACT 112: Negative or not required by law. Electronically signed by: Zurdo Sanchez M.D. 05/13/2024 1:24 PM
[2024-05-13] MEDS: HEPARIN SOD (PORCINE) 1000 UNIT/ML IV ONE (15:04)
[2024-05-13] MEDS: HEPARIN SOD (PORCINE) 1000 UNIT/ML IV SCH (15:05)
[2024-05-13] MEDS: EPOETIN ALFA 4,000 UNIT/ML VIAL IV ONE (15:05)
[2024-05-13] MEDS: MIDODRINE HCL 10 MG TAB PO STA (16:47)
[2024-05-13] MEDS: PIPERACILLIN/TAZOBACTAM 4.5 GM/100 ML BAG IV STA (18:30)
[2024-05-13] MEDS: PIPERACILLIN/TAZOBACTAM 4.5 GM/100 ML BAG IV SCH (21:07)
[2024-05-14 07:26] LABS: Hematocrit (blood only) 33.4 % (37.0-47.0); Hemoglobin 11.1 g/dl (12.0-16.0); Mean Corpuscular Hemoglobin 33.6 pg (25.0-34.0); Mean Corpuscular Hgb Conc 33.2 g/dL (32.0-36.0); Mean Corpuscular Volume 101.2 fL (80.0-100.0); Mean Platelet Volume 9.9 fL (9.4-12.4); Nucleated RBC # (auto) 0.38 K/uL (0.00-0.12); Nucleated RBC % (auto) 1.6 %; Platelet Count 390 K/uL (130-400); RDW Coefficient of Variation 14.5 % (11.5-14.5); RDW Standard Deviation 52.2 fL (36.4-46.3); White Blood Count 23.49 K/ul (4.8-10.8)
[2024-05-14 07:57] LABS: BUN Creatinine Ratio 4.2 (10-20); Calcium 10.7 mg/dl (8.6-10.3); Creatinine Clr Calc Pharmacy 13.8 ml/min; Phosphorus 4.1 mg/dl (2.5-4.9); Potassium 3.4 mmol/L (3.5-5.1)
[2024-05-14] MEDS ORDERED: VANCOMYCIN CONSULT ACTIVE PRN (07:58)
--- NOTE | 2024-05-14 09:26 | Pharmacy Report ---
Pharmacy PK ABX Note - Date of Service May 14, 2024 - Assessment and Plan Assessment 78 year old F receiving Vancomycin, Zosyn and Tamiflu empirically for treatment of possible secondary bacterial pneumonia with influenza A. * Day #1 of Vancomycin and Tamiflu. Day #2 of Zosyn. * Afebrile. WBC continues to worsen, 23.5k today. Patient started on HD this admission, no schedule yet. Spoke with cook sauce today and no planned HD today. Next session planned for tomorrow (05/15/24). * All cx from this admission are negative. MRSA swab and Flu A positive. * Will give a 20 mg/kg vanc load today and order pre-HD level for tomorrow. Plan Vancomycin * Loading dose: 2000 mg IV x 1 * No scheduled maintenance dose as will be dosing by levels given HD * Ordered pre-HD level for 05/15/24 Zosyn * 4.5 g IV every 12 hours Tamiflu * 30 mg PO every 48 hours x 3 doses Pharmacy will continue to follow and will adjust dose/frequency as necessary. Thank you. Pharmacy has transitioned to AUC monitoring for vancomycin. AUC/MOOK is the preferred PK/PD target and is associated with decreased risk of nephrotoxicity compared to traditional trough targets.
[2024-05-14] MEDS: VANCOMYCIN HCL 2,000 MG in SODIUM CHLORIDE 0.9% 500 ML IV STA (09:39)
--- NOTE | 2024-05-14 11:06 | Gastroenterology Progress Note ---
Date of Service May 14, 2024 Assessment & Plan (1) Dysphagia: Plan Patient alert but seems unwilling to answer questions. Per nursing, she is is tolerating ice chips, but did not eat breakfast. - continue with protonix 40mg IV once daily. - will discuss case further with Dr. Cardenas. Admission and Anticipated Discharge Date Admission Date: May 06, 2024 Supervising Physician Co-Signing Physician Notes Patient evaluated in the afternoon. She is awake and actually talking. Though notes she has trouble understanding what I am saying. at the bedside. States she is tolerated ice chips liquids and broccoli soup. Does not appear to be coughing or choking, advance diet as tolerated following speech pathology's recommendations. Do not believe she requires endoscopy or further study as long as her swallowing continues to improve. We will follow-up on Friday. Reconsult call earlier if there are issues. Subjective Patient seems confused this morning. She is alert, and acknowledges that she hears my questions, but she does not answer them. I discussed with nursing - patient did not attempt to eat any breakfast and only wanted ice. She was tolerating the ice chips per nursing. patient offers no complaints. Review of Systems Review of Systems: unable to obtain. Physical Exam Respiratory: normal respiratory effort. Cardiovascular: regular rate, regular rhythm. Gastrointestinal (Abdomen): normal bowel sounds, soft, nontender. Psychiatric: alert. Results & Data Results & Data Vital Signs (Past 12 Hours) Vital Signs Temp Pulse Pulse Pulse Resp BP Pulse Ox 05/14/24 08:00 05/14/24 07:26 98.2 F 71 21 114/66 92 05/14/24 07:13 62 21 95 05/14/24 07:12 62 21 95 05/14/24 03:17 98.4 F 66 20 132/72 97 05/14/24 02:21 58 L 24 99 05/14/24 00:12 97.9 F 62 18 121/61 97 05/13/24 23:45 66 20 95 O2 Del Method O2 Flow Rate 05/14/24 08:00 Nasal Cannula 1 05/14/24 07:26 BiPAP 05/14/24 07:13 BiPAP 05/14/24 07:12 05/14/24 03:17 CPAP 05/14/24 02:21 0.5 05/14/24 00:12 CPAP 05/13/24 23:45 0.5 Coding Level of Care Code 59903 SUB INP/OBS CARE 04/10MIN Diagnoses Dysphagia R13.10
--- NOTE | 2024-05-14 11:50 | Nephrology Progress Note ---
Date of Service May 14, 2024 Assessment & Plan (1) ESRD (end stage renal disease) on dialysis: Plan: tolerated HD May 10 for 3 L . had 1.5L UF on 05/11, shortened tx. refused HD on 05/12 routine tx. refused 05/13 AM but then allowed tx 05/13 PM and tolerated 1.5L. >> passed swallow study but still some concerns > GI following > aware and concerned she has altered MS more frequent HD d/t ongoing 02 needs; does not wear as OP adn now on RA late 05/14 afternoon severe illness but improving > extub'd 05/09 after Acute resp failure on ventilator. had pressor needs earlier this stay. remains hypoxic Will try to aim for SBP > 90 -on mg before HD, same as OP She has persistent elevated WBC and had evidence of Sepsis--all cxs negative. but plm edema, multifocal NIETO on CXR/CT and remains hypoxic ABx for superimposed ? PNA on flu A > doxy, ceftriax mild hypokalemia > no need to treat CXR and CT shows e/o Pulm edema and pl eff and Multifocal pneumonia. will try to take whatever we can. EMLA before HD >next HD tomorrow t sat 46 this admission; also getting epo (2) Acute on chronic hypoxic respiratory failure: Plan: has COPD >>>NO baseline 02 <<< but now lot worse with Intubation and s/p ventilator status. has some Pulm congestion also so will try to take some fluid off as allowed by BP. (3) Influenza A: Plan: Had severe presentation with this. Makes everything more difficult including Dialysis. Admission and Anticipated Discharge Date Admission Date: May 06, 2024 Subjective HD completed 4 d/t lower BP > 1.3 L UF; minimal po intake >> asking only for ice and not taking po per report today. she struggles more than usual to hear/ answer today. tells me she's tired when I ask how she is. Review of Systems 2 Review of Systems: All systems reviewed & are unremarkable except as noted in Subjective Physical Exam 2 Constitutional: well developed and well nourished Eyes: EOM intact bilaterally ENMT: Ears: + hearing impairment Nose: no external nose abnormality M outh: + dry oral mucous membranes Respiratory: normal respiratory effort; no cough Auscultation: + diminished lung sounds Cardiovascular: RRR, no murmur, no edema Extremities: + AV fistula ( R arm + t/b) Gastrointestinal (Abdomen): Inspection/Auscultation: normal bowel sounds P ercussion/Palpation: abdomen soft; abdomen nontender Musculoskeletal: Extremities: strength 5/5 throughout Skin: no rashes, warm and dry Results & Data Vital Signs (Past 12 Hours) Vital Signs Temp Pulse Pulse Pulse Resp BP Pulse Ox 05/14/24 11:05 36.9 C 64 16 108/62 100 05/14/24 08:00 05/14/24 07:26 36.8 C 71 21 114/66 92 05/14/24 07:13 62 21 95 05/14/24 07:12 62 21 95 05/14/24 03:17 36.9 C 66 20 132/72 97 05/14/24 02:21 58 L 24 99 05/14/24 00:12 36.6 C 62 18 121/61 97 O2 Del Method O2 Flow Rate 05/14/24 11:05 Nasal Cannula 2.0 05/14/24 08:00 Nasal Cannula 1 05/14/24 07:26 BiPAP 05/14/24 07:13 BiPAP 05/14/24 07:12 05/14/24 03:17 CPAP 05/14/24 02:21 0.5 05/14/24 00:12 CPAP Laboratory Results 05/14/24 05:51 05/14/24 05:51
[2024-05-14] MEDS: OSELTAMIVIR PHOSPHATE SUSP 30 MG/5 ML UDP PO SCH (15:09)
--- NOTE | 2024-05-14 15:39 | Hospitalist Progress Note ---
Date of Service May 14, 2024 Assessment & Plan (1) Acute hypoxemic respiratory failure: (2) Acute metabolic encephalopathy: (3) Influenza A: Plan 78 yo F with ESRD on hemodialysis, COPD on 3 L of oxygen, Parkinson's disease, hypothyroidism, type 2 diabetes mellitus, RENÉ, hyperlipidemia, generalized anxiety disorder who was sent from [facility] after she was found to be confused and short of breath. Acute on chronic hypoxic respiratory failure Acute metabolic encephalopathy/delirium Influenza A Multifocal pneumonia --Chest CT:Accounting for respiratory artifact, there are subtle patchy opacities in the posterior right upper lobe, the superior and medial basal segment of the right lower lobe. Less prominent changes are noted involving the inferior aspect of the left upper lobe and the medial basal segment of the left lower lobe. These are all new from the previous examination. Multifocal pneumonia is not excluded. -- BioFire positive for influenza A -Procalcitonin 2.4 Nasal MRSA positive -Blood cultures negative to date -Urine cultures negative --Sputum culture grew normal rebecca Continue Tamiflu-empirically on Zosyn, vancomycin>> transitioned to Rocephin,Doxycycline -- Appreciate critical care input -- Extubated on 05/09/2024 -- Weaned off of pressors Plan to complete 7-day course of antibiotics Reorient frequently to minimize delirium Requiring 4 L supplemental oxygen to maintain saturation Will likely need rehab on discharge Now on 2L of suppl. O2 05/13 WBC uptrending, will obtain CXR, will start zosyn Pt not able to provide hx + cough when takes a deep breath on lung exam ? aspiration 05/14 WBC 23K today given MRSA swab positive will resume vancomycin as well cont. tamiflu ID consult placed Elevated troponin, Type II [place] Likely demand ischemia secondary to above in setting of end-stage renal disease Less likely ACS --ECHO: EF 50 to 55%. Right ventricle is normal size. Right ventricle systolic pressure is normal. Mild valvular aortic stenosis. Mild to moderate mitral regurgitation. Mild tricuspid regurgitation. Monitor End-stage renal disease Continue dialysis per nephrology Appreciate nephrology input Refused hemodialysis but had session yesterday 05/13 Chronic conditions: Parkinson's disease; continue on carbidopa/levodopa Hypothyroidism; continue levothyroxine RENÉ on CPAP; currently intubated Orthostatic Hypotension; continue on midodrine CODE STATUS Conditional code DVT Px: Heparin SQ Admission and Anticipated Discharge Date Admission Date: May 06, 2024 Subjective Patient seen in follow up Poor historian due to confusion, hearing impairment Patient failed swallow study -> video swallow study yesterday - no aspiration but esoph. disease and speech recommends GI eval More awake today Denies any chest pain, dyspnea, abd. pain This AM per RN pt was coughing when she got pills, then improved and was able to take the rest of meds WBC elevated - vanco added as MRSA swab positive. Also discussed w/ pharmacy - pt did not finish her tamiflu treatment - so will resume Review of Systems Review of Systems: All systems reviewed & are unremarkable except as noted in Subjective Physical Exam Physical Exam: General Appearance:Obese, no apparent distress, confused Head: normocephalic, Atraumatic Eyes: normal inspection, EOMI Neck: supple Respiratory/Chest: Decreased breath sounds, No accessory muscle use, + cough with deep inspiration Cardiovascular: S1, S2, No murmur Abdomen/GI:Soft, Non tender, Bowel sounds present Extremities/Musculoskeletal:normal inspection, 1+ edema Neurologic/Psych: Grossly no focal deficit Skin: normal color, warm Results & Data Results & Data Vital Signs (Past 12 Hours) Vital Signs Temp Pulse Pulse Pulse Resp BP Pulse Ox 05/14/24 13:49 72 05/14/24 12:46 18 95 05/14/24 11:05 36.9 C 64 16 108/62 100 05/14/24 08:00 68 05/14/24 08:00 05/14/24 07:26 36.8 C 71 21 114/66 92 05/14/24 07:13 62 21 95 05/14/24 07:12 62 21 95 O2 Del Method O2 Flow Rate 05/14/24 13:49 05/14/24 12:46 Nasal Cannula 1 05/14/24 11:05 Nasal Cannula 2.0 05/14/24 08:00 05/14/24 08:00 Nasal Cannula 1 05/14/24 07:26 BiPAP 05/14/24 07:13 BiPAP 05/14/24 07:12 Laboratory Results 05/14/24 05/14/24 05/14/24 Range/Units 11:07 07:22 05:51 WBC 23.49 H (4.8-10.8) K/ul RBC 3.30 L (4.20-5.40) M/uL Hgb 11.1 L (12.0-16.0) g/dl Hct 33.4 L (37.0-47.0) % MCV 101.2 H (80.0-100.0) fL MCH 33.6 (25.0-34.0) pg MCHC 33.2 (32.0-36.0) g/dL RDW Std Deviation 52.2 H (36.4-46.3) fL RDW Coeff of Bhavin 14.5 (11.5-14.5) % Plt Count 390 (130-400) K/uL MPV 9.9 (9.4-12.4) fL Absolute Nucleated RBC 0.38 H (0.00-0.12) K/uL Nucleated RBC % (auto) 1.6 % Sodium 139 (136-145) mmol/L Potassium 3.4 L (3.5-5.1) mmol/L Chloride 94 L (98-107) mmol/L Carbon Dioxide 28 (21-32) mmol/L Anion Gap 17 H (3-11) BUN 16 (6-23) mg/dl Creatinine 3.82 H D (0.6-1.2) mg/dl Est Cr Clr Drug Dosing 13.8 ml/min eGFR 11.62 BUN/Creatinine Ratio 4.2 L (10-20) Glucose 98 (70-99(Fasting)) mg/dl POC Glucose 123 H 113 H (70-99) mg/dl Calcium 10.7 H (8.6-10.3) mg/dl Phosphorus 4.1 D (2.5-4.9) mg/dl Magnesium 2.0 (1.7-2.4) mg/dl 05/13/24 05/13/24 Range/Units 21:05 18:49 WBC (4.8-10.8) K/ul RBC (4.20-5.40) M/uL Hgb (12.0-16.0) g/dl Hct (37.0-47.0) % MCV (80.0-100.0) fL MCH (25.0-34.0) pg MCHC (32.0-36.0) g/dL RDW Std Deviation (36.4-46.3) fL RDW Coeff of Bhavin (11.5-14.5) % Plt Count (130-400) K/uL MPV (9.4-12.4) fL Absolute Nucleated RBC (0.00-0.12) K/uL Nucleated RBC % (auto) % Sodium (136-145) mmol/L Potassium (3.5-5.1) mmol/L Chloride (98-107) mmol/L Carbon Dioxide (21-32) mmol/L Anion Gap (3-11) BUN (6-23) mg/dl Creatinine (0.6-1.2) mg/dl Est Cr Clr Drug Dosing ml/min eGFR BUN/Creatinine Ratio (10-20) Glucose (70-99(Fasting)) mg/dl POC Glucose 102 H 118 H (70-99) mg/dl Calcium (8.6-10.3) mg/dl Phosphorus (2.5-4.9) mg/dl Magnesium (1.7-2.4) mg/dl Medications Administered Current Inpatient Medications Acetaminophen (Acetaminophen 325 Mg Tab) 650 mg PO Q4H PRN PRN Reason: Fever/Mild Pain (Pain 1,2,3) Stop: 06/05/24 21:18 Albuterol (Albut/Ipratrop 3mg/0.5mg Neb 3 Ml Vial) 3 ml INH Q4H PRN PRN Reason: Dyspnea Stop: 06/05/24 21:18 Last Admin: 05/07/24 07:48 Dose: 3 ml Albuterol (Albut/Ipratrop 3mg/0.5mg Neb 3 Ml Vial) 3 ml INH TIDR [facility]; Protocol Stop: 05/16/24 23:59 Last Admin: 05/14/24 12:45 Dose: 3 ml Aspirin (Aspirin 81 Mg Chew) 162 mg PO MoWeFr@0900 [facility] Stop: 06/06/24 08:59 Last Admin: 05/14/24 10:13 Dose: 162 mg Atorvastatin Calcium (Atorvastatin 40 Mg Tab) 80 mg PO QPM [facility] Stop: 06/06/24 20:59 Last Admin: 05/13/24 20:13 Dose: Not Given Carbidopa/Levodopa (Carbidopa/Levodopa 25/100mg Tab) 1 tab PO TIDM [facility] Stop: 06/06/24 07:59 Last Admin: 05/14/24 11:44 Dose: 1 tab Dextrose (Dextrose 50% 50 Ml Syringe) 25 - 50 ml IV UD PRN; Protocol PRN Reason: Hypoglycemia Protocol Stop: 06/06/24 00:38 Docusate Sodium (Docusate Sodium Syrup 100 Mg/10 Ml Udc) 100 mg PO DAILY [facility] Stop: 06/06/24 08:59 Last Admin: 05/14/24 10:13 Dose: Not Given Escitalopram Oxalate (Escitalopram Oxalate 10 Mg Tab) 10 mg PO QAM [facility] Stop: 06/06/24 08:59 Last Admin: 05/14/24 10:13 Dose: Not Given Fentanyl Citrate (Fentanyl Bolus From Bag) 50 mcg IV Q60M PRN PRN Reason: Pain or Agitation Stop: 05/20/24 21:18 Last Admin: 05/07/24 13:44 Dose: 50 mcg Glucagon (Glucagon For Inj 1 Mg Vial) 1 mg SQ UD PRN; Protocol PRN Reason: Hypoglycemia Protocol Stop: 06/06/24 00:38 Glucose (Glucose 40% Gel 15 Gm Tube) 15 - 30 gm PO UD PRN; Protocol PRN Reason: Hypoglycemia Protocol Stop: 06/06/24 00:38 Glucose (Glucose 10 Tab/Tube) 4 - 8 tab PO UD PRN; Protocol PRN Reason: Hypoglycemia Protocol Stop: 06/06/24 00:38 Heparin Sodium (Porcine) (Heparin Sod 5,000 Unit/0.5 Ml Vial) 5,000 units SQ Q8 [facility] Stop: 06/05/24 21:59 Last Admin: 05/14/24 15:09 Dose: 5,000 units Pantoprazole Sodium (Protonix) 40 mg in 10 mls @ 5 mls/min IV DAILY [facility] Stop: 06/06/24 08:59 Last Admin: 05/14/24 09:39 Dose: 5 mls/min Piperacillin Sod/Tazobactam Sod (Zosyn) 4.5 gm in 100 mls @ 25 mls/hr IV Q12H [facility]; Protocol Stop: 05/15/24 20:29 Last Infusion: 05/14/24 12:11 Dose: Infused Insulin Aspart (Insulin Aspart Per Unit Charge) 0 units SC ACHS [facility] Stop: 06/12/24 11:44 Last Admin: 05/14/24 11:44 Dose: Not Given Levothyroxine Sodium (Levothyroxine Sodium 125 Mcg Tablet) 125 mcg PO DAILYBB [facility] Stop: 06/06/24 06:29 Last Admin: 05/14/24 05:18 Dose: Not Given Lidocaine (Lidocaine 4% Cream 15 Gm Tube) 1 appln EXT PRN PRN PRN Reason: dialysis fistula Stop: 06/11/24 14:20 Last Admin: 05/13/24 09:29 Dose: 1 appln Midodrine (Midodrine Hcl 2.5 Mg Tab) 5 mg PO MoWeFr@0900 [facility] Stop: 06/06/24 08:59 Last Admin: 05/14/24 10:14 Dose: Not Given Midodrine (Midodrine Hcl 2.5 Mg Tab) 5 mg PO MoWeFr@0800 [facility] Stop: 06/06/24 07:59 Last Admin: 05/14/24 07:47 Dose: 5 mg Miscellaneous (Carbohydrates For Hypoglycemia ) 15 - 30 gm PO UD PRN PRN Reason: Hypoglycemia Protocol Stop: 06/06/24 00:38 Miscellaneous Information (Vancomycin Consult Active) 1 each N/A UD PRN PRN Reason: Consult Stop: 06/13/24 07:57 Oseltamivir Phosphate (Oseltamivir Phosphate Susp 30 Mg/5 Ml Udp) 30 mg PO Q48H [facility] Stop: 05/18/24 16:01 Last Admin: 05/14/24 15:09 Dose: 30 mg Polyethylene Glycol (Polyethylene (Miralax) 17 Gm Pack) 17 gm NG DAILY [facility] Stop: 06/06/24 08:59 Last Admin: 05/14/24 10:14 Dose: Not Given Vitamin B Complex/Folic Acid (Nephrocaps) 1 cap PO DAILY [facility] Stop: 06/06/24 08:59 Last Admin: 05/14/24 10:14 Dose: Not Given Vitamin D (Cholecalciferol 25 Mcg (1000 Units) Tab) 25 mcg PO DAILY [facility] Stop: 06/06/24 08:59 Last Admin: 05/14/24 10:13 Dose: Not Given
[2024-05-15 05:14] LABS: Hemoglobin 10.6 g/dl (12.0-16.0); Mean Corpuscular Hemoglobin 34.2 pg (25.0-34.0); Mean Corpuscular Hgb Conc 34.2 g/dL (32.0-36.0); Mean Platelet Volume 9.9 fL (9.4-12.4); Nucleated RBC # (auto) 0.13 K/uL (0.00-0.12); Nucleated RBC % (auto) 0.7 %; Platelet Count 354 K/uL (130-400); RDW Coefficient of Variation 14.7 % (11.5-14.5); RDW Standard Deviation 51.8 fL (36.4-46.3); White Blood Count 18.08 K/ul (4.8-10.8)
[2024-05-15 05:29] LABS: Calcium 10.3 mg/dl (8.6-10.3); Magnesium 1.9 mg/dl (1.7-2.4)
[2024-05-15 05:37] LABS: BUN Creatinine Ratio 4.1 (10-20); Creatinine Clr Calc Pharmacy 8.5 ml/min; Phosphorus 5.1 mg/dl (2.5-4.9)
--- NOTE | 2024-05-15 08:16 | Hospitalist Progress Note ---
Date of Service May 15, 2024 Assessment & Plan (1) Acute hypoxemic respiratory failure: (2) Acute metabolic encephalopathy: (3) Influenza A: Plan 78 yo F with ESRD on hemodialysis, COPD on 3 L of oxygen, Parkinson's disease, hypothyroidism, type 2 diabetes mellitus, RENÉ, hyperlipidemia, generalized anxiety disorder who was sent from [facility] after she was found to be confused and short of breath. Acute on chronic hypoxic respiratory failure Acute metabolic encephalopathy/delirium Influenza A Multifocal pneumonia --Chest CT:Accounting for respiratory artifact, there are subtle patchy opacities in the posterior right upper lobe, the superior and medial basal segment of the right lower lobe. Less prominent changes are noted involving the inferior aspect of the left upper lobe and the medial basal segment of the left lower lobe. These are all new from the previous examination. Multifocal pneumonia is not excluded. -- BioFire positive for influenza A -Procalcitonin 2.4 Nasal MRSA positive -Blood cultures negative to date -Urine cultures negative --Sputum culture grew normal rebecca Continue Tamiflu-empirically on Zosyn, vancomycin>> transitioned to Rocephin,Doxycycline -- Appreciate critical care input -- Extubated on 05/09/2024 -- Weaned off of pressors Plan to complete 7-day course of antibiotics Reorient frequently to minimize delirium Requiring 4 L supplemental oxygen to maintain saturation Will likely need rehab on discharge Now on 2L of suppl. O2 05/13 WBC uptrending, will obtain CXR, will start zosyn Pt not able to provide hx + cough when takes a deep breath on lung exam ? aspiration 05/14 WBC 23K today given MRSA swab positive will resume vancomycin as well cont. tamiflu ID consult placed 05/15 WBC down to 18K Pt more awake and aware. answers questions. poor appetite Elevated troponin, Type II [place] Likely demand ischemia secondary to above in setting of end-stage renal disease Less likely ACS --ECHO: EF 50 to 55%. Right ventricle is normal size. Right ventricle systolic pressure is normal. Mild valvular aortic stenosis. Mild to moderate mitral regurgitation. Mild tricuspid regurgitation. Monitor End-stage renal disease Continue dialysis per nephrology Appreciate nephrology input Refused hemodialysis previously but had session on 05/13 and today 05/15 Chronic conditions: Parkinson's disease; continue on carbidopa/levodopa Hypothyroidism; continue levothyroxine RENÉ on CPAP Orthostatic Hypotension; continue on midodrine CODE STATUS Conditional code DVT Px: Heparin SQ Admission and Anticipated Discharge Date Admission Date: May 06, 2024 Subjective Patient seen in follow up Poor historian due to confusion, hearing impairment Patient failed swallow study -> video swallow study- no aspiration but esoph. disease and speech recommends GI eval More awake and more responsive today, answers questions Denies any chest pain, dyspnea, abd. pain WBC elevated - vanco added as MRSA swab positive. Also discussed w/ pharmacy - pt did not finish her tamiflu treatment - so resumed vanco level elevated today WBC down to 18K from 23K Review of Systems Review of Systems: All systems reviewed & are unremarkable except as noted in Subjective Physical Exam Physical Exam: General Appearance:Obese, no apparent distress Head: normocephalic, Atraumatic Eyes: normal inspection, EOMI Neck: supple Respiratory/Chest: Decreased breath sounds, No accessory muscle use, + cough with deep inspiration Cardiovascular: S1, S2, No murmur Abdomen/GI:Soft, Non tender, Bowel sounds present Extremities/Musculoskeletal:normal inspection, 1+ edema Neurologic/Psych: Grossly no focal deficit Skin: normal color, warm Results & Data Results & Data Vital Signs (Past 12 Hours) Vital Signs Temp Pulse Pulse Pulse Resp BP Pulse Ox 05/15/24 07:34 36.8 C 73 18 122/74 96 05/15/24 02:17 62 20 96 05/15/24 00:44 60 22 95 05/14/24 23:24 72 05/14/24 23:23 36.4 C L 72 18 107/55 L 95 05/14/24 20:55 71 18 92 05/14/24 20:20 55 L 24 96 O2 Del Method 05/15/24 07:34 Room Air 05/15/24 02:17 05/15/24 00:44 05/14/24 23:24 05/14/24 23:23 CPAP 05/14/24 20:55 Room Air 05/14/24 20:20 Laboratory Results 05/15/24 05/15/24 05/14/24 Range/Units 07:27 04:32 16:01 WBC 18.08 H (4.8-10.8) K/ul RBC 3.10 L (4.20-5.40) M/uL Hgb 10.6 L (12.0-16.0) g/dl Hct 31.0 L (37.0-47.0) % MCV 100.0 (80.0-100.0) fL MCH 34.2 H (25.0-34.0) pg MCHC 34.2 (32.0-36.0) g/dL RDW Std Deviation 51.8 H (36.4-46.3) fL RDW Coeff of Bhavin 14.7 H (11.5-14.5) % Plt Count 354 (130-400) K/uL MPV 9.9 (9.4-12.4) fL Absolute Nucleated RBC 0.13 H (0.00-0.12) K/uL Nucleated RBC % (auto) 0.7 % Sodium 136 (136-145) mmol/L Potassium 3.0 L (3.5-5.1) mmol/L Chloride 95 L (98-107) mmol/L Carbon Dioxide 22 (21-32) mmol/L Anion Gap 19 H (3-11) BUN 25 H (6-23) mg/dl Creatinine 6.17 H* D (0.6-1.2) mg/dl Est Cr Clr Drug Dosing 8.5 ml/min eGFR 6.53 BUN/Creatinine Ratio 4.1 L (10-20) Glucose 97 (70-99(Fasting)) mg/dl POC Glucose 101 H 143 H (70-99) mg/dl Calcium 10.3 (8.6-10.3) mg/dl Phosphorus 5.1 H (2.5-4.9) mg/dl Magnesium 1.9 (1.7-2.4) mg/dl Random Vancomycin 32.0 H* (10-20) mcg/ml 05/14/24 Range/Units 11:07 WBC (4.8-10.8) K/ul RBC (4.20-5.40) M/uL Hgb (12.0-16.0) g/dl Hct (37.0-47.0) % MCV (80.0-100.0) fL MCH (25.0-34.0) pg MCHC (32.0-36.0) g/dL RDW Std Deviation (36.4-46.3) fL RDW Coeff of Bhavin (11.5-14.5) % Plt Count (130-400) K/uL MPV (9.4-12.4) fL Absolute Nucleated RBC (0.00-0.12) K/uL Nucleated RBC % (auto) % Sodium (136-145) mmol/L Potassium (3.5-5.1) mmol/L Chloride (98-107) mmol/L Carbon Dioxide (21-32) mmol/L Anion Gap (3-11) BUN (6-23) mg/dl Creatinine (0.6-1.2) mg/dl Est Cr Clr Drug Dosing ml/min eGFR BUN/Creatinine Ratio (10-20) Glucose (70-99(Fasting)) mg/dl POC Glucose 123 H (70-99) mg/dl Calcium (8.6-10.3) mg/dl Phosphorus (2.5-4.9) mg/dl Magnesium (1.7-2.4) mg/dl Random Vancomycin (10-20) mcg/ml Medications Administered Current Inpatient Medications Acetaminophen (Acetaminophen 325 Mg Tab) 650 mg PO Q4H PRN PRN Reason: Fever/Mild Pain (Pain 1,2,3) Stop: 06/05/24 21:18 Albuterol (Albut/Ipratrop 3mg/0.5mg Neb 3 Ml Vial) 3 ml INH Q4H PRN PRN Reason: Dyspnea Stop: 06/05/24 21:18 Last Admin: 05/07/24 07:48 Dose: 3 ml Albuterol (Albut/Ipratrop 3mg/0.5mg Neb 3 Ml Vial) 3 ml INH TIDR [facility]; Protocol Stop: 05/16/24 23:59 Last Admin: 05/15/24 07:18 Dose: 3 ml Aspirin (Aspirin 81 Mg Chew) 162 mg PO MoWeFr@0900 [facility] Stop: 06/06/24 08:59 Last Admin: 05/14/24 10:13 Dose: 162 mg Atorvastatin Calcium (Atorvastatin 40 Mg Tab) 80 mg PO QPM [facility] Stop: 06/06/24 20:59 Last Admin: 05/14/24 20:19 Dose: Not Given Carbidopa/Levodopa (Carbidopa/Levodopa 25/100mg Tab) 1 tab PO TIDM [facility] Stop: 06/06/24 07:59 Last Admin: 05/15/24 07:53 Dose: 1 tab Dextrose (Dextrose 50% 50 Ml Syringe) 25 - 50 ml IV UD PRN; Protocol PRN Reason: Hypoglycemia Protocol Stop: 06/06/24 00:38 Docusate Sodium (Docusate Sodium Syrup 100 Mg/10 Ml Udc) 100 mg PO DAILY [facility] Stop: 06/06/24 08:59 Last Admin: 05/15/24 07:52 Dose: Not Given Escitalopram Oxalate (Escitalopram Oxalate 10 Mg Tab) 10 mg PO QAM [facility] Stop: 06/06/24 08:59 Last Admin: 05/15/24 07:53 Dose: 10 mg Fentanyl Citrate (Fentanyl Bolus From Bag) 50 mcg IV Q60M PRN PRN Reason: Pain or Agitation Stop: 05/20/24 21:18 Last Admin: 05/07/24 13:44 Dose: 50 mcg Glucagon (Glucagon For Inj 1 Mg Vial) 1 mg SQ UD PRN; Protocol PRN Reason: Hypoglycemia Protocol Stop: 06/06/24 00:38 Glucose (Glucose 40% Gel 15 Gm Tube) 15 - 30 gm PO UD PRN; Protocol PRN Reason: Hypoglycemia Protocol Stop: 06/06/24 00:38 Glucose (Glucose 10 Tab/Tube) 4 - 8 tab PO UD PRN; Protocol PRN Reason: Hypoglycemia Protocol Stop: 06/06/24 00:38 Heparin Sodium (Porcine) (Heparin Sod 5,000 Unit/0.5 Ml Vial) 5,000 units SQ Q8 [facility] Stop: 06/05/24 21:59 Last Admin: 05/15/24 05:34 Dose: Not Given Heparin Sodium (Porcine) (Heparin Sod (Porcine) 1000 Unit/Ml) 400 units IV Q1H [facility] Stop: 05/15/24 09:01 Pantoprazole Sodium (Protonix) 40 mg in 10 mls @ 5 mls/min IV DAILY [facility] Stop: 06/06/24 08:59 Last Admin: 05/15/24 07:48 Dose: 5 mls/min Piperacillin Sod/Tazobactam Sod (Zosyn) 4.5 gm in 100 mls @ 25 mls/hr IV Q12H [facility]; Protocol Stop: 05/15/24 20:29 Last Admin: 05/15/24 07:47 Dose: 25 mls/hr Insulin Aspart (Insulin Aspart Per Unit Charge) 0 units SC ACHS [facility] Stop: 06/12/24 11:44 Last Admin: 05/15/24 07:43 Dose: Not Given Levothyroxine Sodium (Levothyroxine Sodium 125 Mcg Tablet) 125 mcg PO DAILYBB [facility] Stop: 06/06/24 06:29 Last Admin: 05/15/24 05:34 Dose: Not Given Lidocaine (Lidocaine 4% Cream 15 Gm Tube) 1 appln EXT PRN PRN PRN Reason: dialysis fistula Stop: 06/11/24 14:20 Last Admin: 05/13/24 09:29 Dose: 1 appln Midodrine (Midodrine Hcl 2.5 Mg Tab) 5 mg PO MoWeFr@0900 [facility] Stop: 06/06/24 08:59 Last Admin: 05/14/24 10:14 Dose: Not Given Midodrine (Midodrine Hcl 2.5 Mg Tab) 5 mg PO MoWeFr@0800 [facility] Stop: 06/06/24 07:59 Last Admin: 05/14/24 07:47 Dose: 5 mg Miscellaneous (Carbohydrates For Hypoglycemia ) 15 - 30 gm PO UD PRN PRN Reason: Hypoglycemia Protocol Stop: 06/06/24 00:38 Miscellaneous Information (Vancomycin Consult Active) 1 each N/A UD PRN PRN Reason: Consult Stop: 06/13/24 07:57 Oseltamivir Phosphate (Oseltamivir Phosphate Susp 30 Mg/5 Ml Udp) 30 mg PO Q48H [facility] Stop: 05/18/24 16:01 Last Admin: 05/14/24 15:09 Dose: 30 mg Polyethylene Glycol (Polyethylene (Miralax) 17 Gm Pack) 17 gm NG DAILY [facility] Stop: 06/06/24 08:59 Last Admin: 05/15/24 07:52 Dose: Not Given Vitamin B Complex/Folic Acid (Nephrocaps) 1 cap PO DAILY [facility] Stop: 06/06/24 08:59 Last Admin: 05/15/24 07:53 Dose: 1 cap Vitamin D (Cholecalciferol 25 Mcg (1000 Units) Tab) 25 mcg PO DAILY [facility] Stop: 06/06/24 08:59 Last Admin: 05/15/24 07:53 Dose: 25 mcg
[2024-05-15] MEDS: MIDODRINE HCL 10 MG TAB PO STA (09:35)
[2024-05-15] MEDS: HEPARIN SOD (PORCINE) 1000 UNIT/ML IV ONE (09:35)
[2024-05-15] MEDS: HEPARIN SOD (PORCINE) 1000 UNIT/ML IV SCH (09:44)
[2024-05-15] MEDS: OSELTAMIVIR PHOSPHATE SUSP 30 MG/5 ML UDP PO PRN (14:31)
--- NOTE | 2024-05-15 15:05 | Pharmacy Report ---
Pharmacy PK ABX Note - Date of Service May 15, 2024 - Assessment and Plan Assessment 3: Continues on vancomycin, zosyn, and tamiflu. Day # 2 vancomycin. HD today. 05/14: 78 year old F receiving Vancomycin, Zosyn and Tamiflu empirically for treatment of possible secondary bacterial pneumonia with influenza A. * Day #1 of Vancomycin and Tamiflu. Day #2 of Zosyn. * Afebrile. WBC continues to worsen, 23.5k today. Patient started on HD this admission, no schedule yet. 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 Next session planned for tomorrow (05/15/24). * All cx from this admission are negative. MRSA swab and Flu A positive. * Will give a 20 mg/kg vanc load today and order pre-HD level for tomorrow. Plan Vancomycin * Random level this AM (pre-HD,~19h level), 32mcg/mL. Confirmed with lab (level re-ran and was 34.7mcg/mL). Received a single vancomycin loading dose yesterday ~ 0930. * HD today (unknown when next session will be scheduled), but still likely will not dialyze off enough vancomycin for level to be <20mcg/mL today. * Repeat random level tomorrow AM to guide further dosing. Pharmacy will continue to follow and will adjust dose/frequency as necessary. Thank you. Pharmacy has transitioned to AUC monitoring for vancomycin. AUC/MOOK is the preferred PK/PD target and is associated with decreased risk of nephrotoxicity compared to traditional trough targets.
--- NOTE | 2024-05-15 16:42 | Nephrology Progress Note ---
Date of Service May 15, 2024 Assessment & Plan (1) ESRD (end stage renal disease) on dialysis: Plan: tolerated HD May 10 for 3 L . had 1.5L UF on 05/11, shortened tx. refused HD on 05/12 routine tx. refused 05/13 AM but then allowed tx 05/13 PM and tolerated 1.5L. at 05/15 tx only tolerated 500 mL UF. >> passed swallow study but still some concerns > GI following > aware and concerned she has altered MS off of 02NC and on RA late 05/14 afternoon severe illness but improving > extub'd 05/09 after Acute resp failure on ventilator. had pressor needs earlier this stay. since about 05/13 struggle has been to eat/swallow Will try to aim for SBP > 90 -on [id number] mg before HD, same as OP She has persistent elevated WBC and had evidence of Sepsis--all cxs negative. but plm edema, multifocal NIETO on CXR/CT and remains hypoxic ABx for superimposed ? PNA on flu A > doxy, ceftriax course completed; on zosyn now mild hypokalemia > no need to treat CXR and CT shows e/o Pulm edema and pl eff and Multifocal pneumonia. will try to take whatever we can. EMLA before HD >next HD on 05/17, back to [facility] schedule t sat 46 this admission; also getting epo (2) Acute on chronic hypoxic respiratory failure: Plan: has COPD >>>NO baseline 02 <<< but now lot worse with Intubation and s/p ventilator status. has some Pulm congestion also so will try to take some fluid off as allowed by BP. hypoxia improved (3) Influenza A: Plan: Had severe presentation with this. Makes everything more difficult including Dialysis. Admission and Anticipated Discharge Date Admission Date: May 06, 2024 Subjective no interval events clinically. continues not to eat much at all; minimal fluid intake either. UF limited by hypotension today. denies sob or musculoskeletal or abdominal pain. ongoing fatigue which is marked. asked her how dialysis was : "it sucked; I really didn't like it." Can't tell me what about it was unpleasant today. Review of Systems 2 Review of Systems: All systems reviewed & are unremarkable except as noted in Subjective Physical Exam 2 Constitutional: well developed (looks tired) and well nourished; no acute distress Eyes: EOM intact bilaterally ENMT: Ears: + hearing impairment Nose: no external nose abnormality M outh: + dry oral mucous membranes Respiratory: normal respiratory effort; no cough Auscultation: + diminished lung sounds Cardiovascular: RRR, no murmur, no edema Extremities: + AV fistula ( R arm + t/b) Gastrointestinal (Abdomen): Inspection/Auscultation: normal bowel sounds P ercussion/Palpation: abdomen soft; abdomen nontender Musculoskeletal: Extremities: strength 5/5 throughout Skin: no rashes, warm and dry Results & Data Vital Signs (Past 12 Hours) Vital Signs Temp Pulse Pulse Pulse Resp BP BP 05/15/24 16:08 36.8 C 60 18 112/66 05/15/24 14:33 73 05/15/24 13:26 36.6 C 58 L 16 95/55 L 05/15/24 13:20 36.8 C 67 120/50 L 05/15/24 13:00 73 88/48 L 05/15/24 12:30 71 98/51 L 05/15/24 12:00 66 98/46 L 05/15/24 11:30 80 80/45 L 05/15/24 11:00 68 94/50 L 05/15/24 10:30 63 96/43 L 05/15/24 10:00 71 86/45 L 05/15/24 09:30 73 96/47 L 05/15/24 09:16 74 95/42 L 05/15/24 09:05 36.8 C 72 05/15/24 08:00 05/15/24 08:00 78 05/15/24 07:34 36.8 C 73 18 122/74 05/15/24 07:18 70 70 18 Pulse Ox O2 Del Method 05/15/24 16:08 94 Room Air 05/15/24 14:33 05/15/24 13:26 96 Room Air 05/15/24 13:20 05/15/24 13:00 05/15/24 12:30 05/15/24 12:00 05/15/24 11:30 05/15/24 11:00 05/15/24 10:30 05/15/24 10:00 05/15/24 09:30 05/15/24 09:16 05/15/24 09:05 05/15/24 08:00 Room Air 05/15/24 08:00 05/15/24 07:34 96 Room Air 05/15/24 07:18 92 Room Air Laboratory Results 05/15/24 04:32 05/15/24 04:32
[2024-05-16 06:51] LABS: Hematocrit (blood only) 33.3 % (37.0-47.0); Mean Corpuscular Volume 102.8 fL (80.0-100.0); Mean Platelet Volume 9.6 fL (9.4-12.4); Nucleated RBC # (auto) 0.02 K/uL (0.00-0.12); Nucleated RBC % (auto) 0.1 %; Platelet Count 306 K/uL (130-400); RDW Coefficient of Variation 15.8 % (11.5-14.5); RDW Standard Deviation 51.8 fL (36.4-46.3); Red Blood Count 3.24 M/uL (4.20-5.40); White Blood Count 14.15 K/ul (4.8-10.8)
[2024-05-16 07:19] LABS: BUN Creatinine Ratio 2.7 (10-20); Calcium 10.1 mg/dl (8.6-10.3); Creatinine Clr Calc Pharmacy 12.6 ml/min; Magnesium 1.9 mg/dl (1.7-2.4); Potassium 3.3 mmol/L (3.5-5.1)
--- NOTE | 2024-05-16 08:07 | Hospitalist Progress Note ---
Date of Service May 16, 2024 Assessment & Plan (1) Acute hypoxemic respiratory failure: (2) Acute metabolic encephalopathy: (3) Influenza A: Plan 78 yo F with ESRD on hemodialysis, COPD on 3 L of oxygen, Parkinson's disease, hypothyroidism, type 2 diabetes mellitus, RENÉ, hyperlipidemia, generalized anxiety disorder who was sent from [facility] after she was found to be confused and short of breath. Acute on chronic hypoxic respiratory failure Acute metabolic encephalopathy/delirium Influenza A Multifocal pneumonia --Chest CT:Accounting for respiratory artifact, there are subtle patchy opacities in the posterior right upper lobe, the superior and medial basal segment of the right lower lobe. Less prominent changes are noted involving the inferior aspect of the left upper lobe and the medial basal segment of the left lower lobe. These are all new from the previous examination. Multifocal pneumonia is not excluded. -- BioFire positive for influenza A -Procalcitonin 2.4 Nasal MRSA positive -Blood cultures negative to date -Urine cultures negative --Sputum culture grew normal rebecca Continue Tamiflu-empirically on Zosyn, vancomycin>> transitioned to Rocephin,Doxycycline -- Appreciate critical care input -- Extubated on 05/09/2024 -- Weaned off of pressors Plan to complete 7-day course of antibiotics Reorient frequently to minimize delirium Requiring 4 L supplemental oxygen to maintain saturation Will likely need rehab on discharge Now on 2L of suppl. O2 05/13 WBC uptrending, will obtain CXR, will start zosyn Pt not able to provide hx + cough when takes a deep breath on lung exam ? aspiration 05/14 WBC 23K today given MRSA swab positive will resume vancomycin as well cont. tamiflu ID consult placed 05/15 WBC down to 18K Pt more awake and aware. answers questions. poor appetite 05/16 WBC down to 14K, cough improved Elevated troponin, Type II DC Likely demand ischemia secondary to above in setting of end-stage renal disease Less likely ACS --ECHO: EF 50 to 55%. Right ventricle is normal size. Right ventricle systolic pressure is normal. Mild valvular aortic stenosis. Mild to moderate mitral regurgitation. Mild tricuspid regurgitation. Monitor End-stage renal disease Continue dialysis per nephrology Appreciate nephrology input Refused hemodialysis previously but had session on 05/13 and yesterday 05/15 Chronic conditions: Parkinson's disease; continue on carbidopa/levodopa Hypothyroidism; continue levothyroxine RENÉ on CPAP Orthostatic Hypotension; continue on midodrine CODE STATUS Conditional code DVT Px: Heparin SQ Admission and Anticipated Discharge Date Admission Date: May 06, 2024 Subjective Patient seen in follow up Poor historian due to confusion, hearing impairment Patient failed swallow study -> video swallow study- no aspiration but esoph. disease and speech recommends GI eval More awake and more responsive today, answers questions. Asks to change TV channel, as she "does not want to watch cartoon" (cartoon was on TV) Denies any chest pain, dyspnea, abd. pain Per RN, pt had a breakfast. and BM(incontinent) WBC elevated up to 23.5 K on 05/14 - vanco added as MRSA swab positive. Also discussed w/ pharmacy - pt did not finish her tamiflu treatment - so was resumed vanco level elevated yesterday at 32, today 20 WBC down to 14K today - pt is more aware and communicating, as above Review of Systems Review of Systems: All systems reviewed & are unremarkable except as noted in Subjective Physical Exam Physical Exam: General Appearance:Obese, no apparent distress Head: normocephalic, Atraumatic Eyes: normal inspection, EOMI Neck: supple Respiratory/Chest: Decreased breath sounds, No accessory muscle use, + cough with deep inspiration Cardiovascular: S1, S2, No murmur Abdomen/GI:Soft, Non tender, Bowel sounds present Extremities/Musculoskeletal:normal inspection, 1+ edema Neurologic/Psych: awake, alert, answers simple questions, speech fluent, moves extremities Skin: normal color, warm Results & Data Results & Data Vital Signs (Past 12 Hours) Vital Signs Temp Pulse Pulse Resp BP Pulse Ox O2 Del Method 05/16/24 07:36 36.7 C 64 18 115/71 97 Room Air 05/16/24 07:17 64 18 94 Room Air 05/16/24 04:00 36.4 C L 76 18 110/76 97 CPAP 05/16/24 02:28 62 17 94 05/15/24 23:31 62 14 94 05/15/24 21:42 67 05/15/24 20:48 62 19 94 Room Air FiO2 05/16/24 07:36 05/16/24 07:17 05/16/24 04:00 05/16/24 02:28 21 05/15/24 23:31 21 05/15/24 21:42 05/15/24 20:48 Laboratory Results 05/16/24 05/16/24 05/15/24 Range/Units 07:36 06:33 20:38 WBC 14.15 H (4.8-10.8) K/ul RBC 3.24 L (4.20-5.40) M/uL Hgb 11.0 L (12.0-16.0) g/dl Hct 33.3 L (37.0-47.0) % MCV 102.8 H (80.0-100.0) fL MCH 34.0 (25.0-34.0) pg MCHC 33.0 (32.0-36.0) g/dL RDW Std Deviation 51.8 H (36.4-46.3) fL RDW Coeff of Bhavin 15.8 H (11.5-14.5) % Plt Count 306 (130-400) K/uL MPV 9.6 (9.4-12.4) fL Absolute Nucleated RBC 0.02 (0.00-0.12) K/uL Nucleated RBC % (auto) 0.1 % Sodium 139 (136-145) mmol/L Potassium 3.3 L (3.5-5.1) mmol/L Chloride 96 L (98-107) mmol/L Carbon Dioxide 29 (21-32) mmol/L Anion Gap 14 H (3-11) BUN 11 (6-23) mg/dl Creatinine 4.14 H D (0.6-1.2) mg/dl Est Cr Clr Drug Dosing 12.6 ml/min eGFR 10.55 BUN/Creatinine Ratio 2.7 L (10-20) Glucose 88 (70-99(Fasting)) mg/dl POC Glucose 89 85 (70-99) mg/dl Calcium 10.1 (8.6-10.3) mg/dl Phosphorus 4.0 D (2.5-4.9) mg/dl Magnesium 1.9 (1.7-2.4) mg/dl Random Vancomycin 20.9 H (10-20) mcg/ml 05/15/24 05/15/24 Range/Units 16:31 13:20 WBC (4.8-10.8) K/ul RBC (4.20-5.40) M/uL Hgb (12.0-16.0) g/dl Hct (37.0-47.0) % MCV (80.0-100.0) fL MCH (25.0-34.0) pg MCHC (32.0-36.0) g/dL RDW Std Deviation (36.4-46.3) fL RDW Coeff of Bhavin (11.5-14.5) % Plt Count (130-400) K/uL MPV (9.4-12.4) fL Absolute Nucleated RBC (0.00-0.12) K/uL Nucleated RBC % (auto) % Sodium (136-145) mmol/L Potassium (3.5-5.1) mmol/L Chloride (98-107) mmol/L Carbon Dioxide (21-32) mmol/L Anion Gap (3-11) BUN (6-23) mg/dl Creatinine (0.6-1.2) mg/dl Est Cr Clr Drug Dosing ml/min eGFR BUN/Creatinine Ratio (10-20) Glucose (70-99(Fasting)) mg/dl POC Glucose 92 74 (70-99) mg/dl Calcium (8.6-10.3) mg/dl Phosphorus (2.5-4.9) mg/dl Magnesium (1.7-2.4) mg/dl Random Vancomycin (10-20) mcg/ml Medications Administered Current Inpatient Medications Acetaminophen (Acetaminophen 325 Mg Tab) 650 mg PO Q4H PRN PRN Reason: Fever/Mild Pain (Pain 1,2,3) Stop: 06/05/24 21:18 Albuterol (Albut/Ipratrop 3mg/0.5mg Neb 3 Ml Vial) 3 ml INH Q4H PRN PRN Reason: Dyspnea Stop: 06/05/24 21:18 Last Admin: 05/07/24 07:48 Dose: 3 ml Albuterol (Albut/Ipratrop 3mg/0.5mg Neb 3 Ml Vial) 3 ml INH TIDR B[facility]; Protocol Stop: 05/16/24 23:59 Last Admin: 05/16/24 07:16 Dose: 3 ml Aspirin (Aspirin 81 Mg Chew) 162 mg PO MoWeFr@0900 [facility] Stop: 06/06/24 08:59 Last Admin: 05/14/24 10:13 Dose: 162 mg Atorvastatin Calcium (Atorvastatin 40 Mg Tab) 80 mg PO QPM [facility] Stop: 06/06/24 20:59 Last Admin: 05/15/24 20:36 Dose: Not Given Carbidopa/Levodopa (Carbidopa/Levodopa 25/100mg Tab) 1 tab PO TIDM [facility] Stop: 06/06/24 07:59 Last Admin: 05/16/24 07:47 Dose: 1 tab Dextrose (Dextrose 50% 50 Ml Syringe) 25 - 50 ml IV UD PRN; Protocol PRN Reason: Hypoglycemia Protocol Stop: 06/06/24 00:38 Docusate Sodium (Docusate Sodium Syrup 100 Mg/10 Ml Udc) 100 mg PO DAILY [facility] Stop: 06/06/24 08:59 Last Admin: 05/16/24 07:48 Dose: Not Given Escitalopram Oxalate (Escitalopram Oxalate 10 Mg Tab) 10 mg PO QAM [facility] Stop: 06/06/24 08:59 Last Admin: 05/16/24 07:48 Dose: 10 mg Fentanyl Citrate (Fentanyl Bolus From Bag) 50 mcg IV Q60M PRN PRN Reason: Pain or Agitation Stop: 05/20/24 21:18 Last Admin: 05/07/24 13:44 Dose: 50 mcg Glucagon (Glucagon For Inj 1 Mg Vial) 1 mg SQ UD PRN; Protocol PRN Reason: Hypoglycemia Protocol Stop: 06/06/24 00:38 Glucose (Glucose 40% Gel 15 Gm Tube) 15 - 30 gm PO UD PRN; Protocol PRN Reason: Hypoglycemia Protocol Stop: 06/06/24 00:38 Glucose (Glucose 10 Tab/Tube) 4 - 8 tab PO UD PRN; Protocol PRN Reason: Hypoglycemia Protocol Stop: 06/06/24 00:38 Heparin Sodium (Porcine) (Heparin Sod 5,000 Unit/0.5 Ml Vial) 5,000 units SQ Q8 [facility] Stop: 06/05/24 21:59 Last Admin: 05/16/24 05:34 Dose: Not Given Pantoprazole Sodium (Protonix) 40 mg in 10 mls @ 5 mls/min IV DAILY [facility] Stop: 06/06/24 08:59 Last Admin: 05/15/24 07:48 Dose: 5 mls/min Insulin Aspart (Insulin Aspart Per Unit Charge) 0 units SC ACHS [facility] Stop: 06/12/24 11:44 Last Admin: 05/16/24 07:45 Dose: Not Given Levothyroxine Sodium (Levothyroxine Sodium 125 Mcg Tablet) 125 mcg PO DAILYBB [facility] Stop: 06/06/24 06:29 Last Admin: 05/16/24 05:34 Dose: Not Given Lidocaine (Lidocaine 4% Cream 15 Gm Tube) 1 appln EXT PRN PRN PRN Reason: dialysis fistula Stop: 06/11/24 14:20 Last Admin: 05/13/24 09:29 Dose: 1 appln Midodrine (Midodrine Hcl 2.5 Mg Tab) 5 mg PO MoWeFr@0900 [facility] Stop: 06/06/24 08:59 Last Admin: 05/14/24 10:14 Dose: Not Given Midodrine (Midodrine Hcl 2.5 Mg Tab) 5 mg PO MoWeFr@0800 [facility] Stop: 06/06/24 07:59 Last Admin: 05/14/24 07:47 Dose: 5 mg Miscellaneous (Carbohydrates For Hypoglycemia ) 15 - 30 gm PO UD PRN PRN Reason: Hypoglycemia Protocol Stop: 06/06/24 00:38 Miscellaneous (Pending Order: Give Oseltamivir (Tamiflu) After Each Hd Session) 1 each N/A DAILY@1600 [facility] Stop: 05/18/24 23:59 Last Admin: 05/15/24 14:32 Dose: Not Given Miscellaneous Information (Vancomycin Consult Active) 1 each N/A UD PRN PRN Reason: Consult Stop: 06/13/24 07:57 Oseltamivir Phosphate (Oseltamivir Phosphate Susp 30 Mg/5 Ml Udp) 30 mg PO .after each HD session PRN PRN Reason: hemodialysis treatment Stop: 05/18/24 18:00 Last Admin: 05/15/24 14:31 Dose: 30 mg Polyethylene Glycol (Polyethylene (Miralax) 17 Gm Pack) 17 gm NG DAILY [facility] Stop: 06/06/24 08:59 Last Admin: 05/16/24 07:48 Dose: Not Given Vitamin B Complex/Folic Acid (Nephrocaps) 1 cap PO DAILY [facility] Stop: 06/06/24 08:59 Last Admin: 05/16/24 07:48 Dose: 1 cap Vitamin D (Cholecalciferol 25 Mcg (1000 Units) Tab) 25 mcg PO DAILY [facility] Stop: 06/06/24 08:59 Last Admin: 05/16/24 07:47 Dose: 25 mcg
[2024-05-16] MEDS: ADVANCED PROBIOTIC 625 MG CAPSULE PO SCH (09:39)
[2024-05-16] MEDS: 4.5GM X1 IV STA (09:39)
--- NOTE | 2024-05-16 09:54 | Pharmacy Report ---
Pharmacy PK ABX Note - Date of Service May 16, 2024 - Assessment and Plan Assessment 05/16: Day # 3 vancomycin (+ zosyn, tamiflu). Received a single 2gm dose on 05/14 ~ 0930 AM. HD planned for tomorrow (resume MWF schedule per nephro). 3: Continues on vancomycin, zosyn, and tamiflu. Day # 2 vancomycin. HD today. 05/14: 78 year old F receiving Vancomycin, Zosyn and Tamiflu empirically for treatment of possible secondary bacterial pneumonia with influenza A. * Day #1 of Vancomycin and Tamiflu. Day #2 of Zosyn. * Afebrile. WBC continues to worsen, 23.5k today. Patient started on HD this admission, no schedule yet. Spoke with check viewer today and no planned HD today. Next session planned for tomorrow (05/15/24). * All cx from this admission are negative. MRSA swab and Flu A positive. * Will give a 20 mg/kg vanc load today and order pre-HD level for tomorrow. Plan Vancomycin * Random level this AM, 20.9mcg/mL (~45h level since last vancomycin) - therapeutic. Dialyzed yesterday and only tolerated 500mL UF. No HD today. Hold vancomycin dose today. * Planned HD tomorrow - random level tomorrow AM (pre-HD) to guide post-HD dose. Pharmacy will continue to follow and will adjust dose/frequency as necessary. Thank you. Pharmacy has transitioned to AUC monitoring for vancomycin. AUC/MOOK is the preferred PK/PD target and is associated with decreased risk of nephrotoxicity compared to traditional trough targets.
--- NOTE | 2024-05-16 15:39 | Nephrology Progress Note ---
Date of Service May 16, 2024 Assessment & Plan (1) ESRD (end stage renal disease) on dialysis: Plan: tolerated HD May 10 for 3 L . had 1.5L UF on 05/11, shortened tx. refused HD on 05/12 routine tx. refused 05/13 AM but then allowed tx 05/13 PM and tolerated 1.5L. at 05/15 tx only tolerated 500 mL UF, likely d/t minimal PO >> passed swallow study but still some concerns > GI following off of 02NC and on RA late 05/14 afternoon severe illness but improving > extub'd 05/09 after Acute resp failure on ventilator. had pressor needs earlier this stay. since about 05/13 struggle has been to eat/swallow Will try to aim for SBP > 90 -on [id number] mg before HD, same as OP and will continue She has persistent elevated WBC and had evidence of Sepsis--all cxs negative. but plm edema, multifocal NIETO on CXR/CT and remains hypoxic mild hypokalemia > no need to treat CXR and CT shows e/o Pulm edema and pl eff and Multifocal pneumonia>> on zosyn now and vanco. will try to take whatever we can. EMLA before HD >next HD on 05/17, back to MWF schedule; orders in t sat 46 this admission; hgb 11 today > will hold epo in am (2) Acute on chronic hypoxic respiratory failure: Plan: has COPD >>>NO baseline 02 <<< but now lot worse with Intubation and s/p ventilator status. has some Pulm congestion also so will try to take some fluid off as allowed by BP. hypoxia improved/resolved (3) Influenza A: Plan: Had severe presentation with this. Makes everything more difficult including Dialysis. Admission and Anticipated Discharge Date Admission Date: May 06, 2024 Subjective remains on vanco, zosyn, tamiflu. feeling better; at bedside; he brought her treats from home which she readily ate. frustrated again at thought of doing HD tomorrow but ultimately says she'll do it. c/o BL leg pain Review of Systems 2 Review of Systems: All systems reviewed & are unremarkable except as noted in Subjective Physical Exam 2 Constitutional: well developed (looks less tired) and well nourished; no acute distress Eyes: EOM intact bilaterally ENMT: Ears: + hearing impairment Nose: no external nose abnormality M outh: + dry oral mucous membranes Respiratory: normal respiratory effort; no cough Auscultation: + diminished lung sounds Cardiovascular: RRR, no murmur, no edema Extremities: + AV fistula ( R arm + t/b) Gastrointestinal (Abdomen): Inspection/Auscultation: normal bowel sounds P ercussion/Palpation: abdomen soft; abdomen nontender Musculoskeletal: Extremities: strength 5/5 throughout Skin: no rashes, warm and dry Results & Data Vital Signs (Past 12 Hours) Vital Signs Temp Pulse Pulse Resp BP Pulse Ox O2 Del Method 05/16/24 12:08 74 16 100 Room Air 05/16/24 11:57 36.5 C 66 18 142/76 H 99 Room Air 05/16/24 07:36 36.7 C 64 18 115/71 97 Room Air 05/16/24 07:17 64 18 94 Room Air 05/16/24 04:00 36.4 C L 76 18 110/76 97 CPAP Laboratory Results 05/16/24 06:33 05/16/24 06:33
[2024-05-16] MEDS: PIPERACILLIN/TAZOBACTAM 4.5 GM/100 ML BAG IV SCH (17:09)
[2024-05-17 06:15] LABS: Hemoglobin 11.2 g/dl (12.0-16.0); Mean Corpuscular Hemoglobin 33.5 pg (25.0-34.0); Mean Corpuscular Hgb Conc 32.9 g/dL (32.0-36.0); Mean Corpuscular Volume 101.8 fL (80.0-100.0); Mean Platelet Volume 9.8 fL (9.4-12.4); Platelet Count 298 K/uL (130-400); RDW Coefficient of Variation 16.4 % (11.5-14.5); RDW Standard Deviation 51.3 fL (36.4-46.3); Red Blood Count 3.34 M/uL (4.20-5.40); White Blood Count 13.61 K/ul (4.8-10.8)
[2024-05-17 06:39] LABS: BUN Creatinine Ratio 2.7 (10-20); Calcium 10.2 mg/dl (8.6-10.3); Creatinine Clr Calc Pharmacy 8.7 ml/min; Magnesium 1.7 mg/dl (1.7-2.4)
--- NOTE | 2024-05-17 10:16 | Dialysis Progress Note ---
Date of Service May 17, 2024 Assessment & Plan Admission and Anticipated Discharge Date Admission Date: May 06, 2024 Subjective Assessment & Plan (1) ESRD (end stage renal disease) on dialysis: Plan: tolerated HD May 10 for 3 L . had 1.5L UF on 05/11, shortened tx. refused HD on 05/12 routine tx. refused 05/13 AM but then allowed tx 05/13 PM and t olerated 1.5L. at 05/15 tx only tolerated 500 mL UF. off of 02NC and on RA late 05/14 afternoon severe illness but improving > extub'd 05/09 after Acute resp failure on ventilator. had pressor needs earlier this stay. since about 05/13 struggle has been to eat/swallow Will try to aim for SBP > 90 on [id number] mg before HD, same as OP. She has persistent elevated WBC and had evidence of Sepsis--all cxs negative. but plm edema, multifocal NIETO on CXR/CT and remains hypoxic ABx for superimposed ? PNA on flu A > doxy, ceftriax course completed; on zosyn now persistent hypokalemia--even with 4 K bath. Change to regular diet. Not eating much anyway. CXR and CT shows e/o Pulm edema and pl eff and Multifocal pneumonia. will try to take whatever we can. Already running into challenges with Low BP EMLA before HD Also getting but today hgb is 11.6 ao no need of epo (2) Acute on chronic hypoxic respiratory failure: Plan: has COPD NO baseline 02 but now lot worse with Intubation and s/p ventilator status. has some Pulm congestion also so will try to take some fluid off as allowed by BP. hypoxia improved (3) Influenza A: Plan: Had severe presentation with this. Makes everything more difficult including Dialysis. Subjective Seen during dialysis. Not eating anything. K is low. BP drops very easily and already dropped to 76 and we had to back of the UF goal. AVF fine Physical Exam Constitutional: well developed (looks tired) and well nourished; no acute distress Eyes: EOM intact bilaterally ENMT: Ears: + hearing impairment Nose: no external nose abnormality Mouth: + dry oral mucous membranes Respiratory: normal respiratory effort; no cough Auscultation: + diminished lung sounds Cardiovascular: RRR, no murmur, no edema Extremities: + AV fistula ( R arm + t/b) Gastrointestinal (Abdomen): Inspection/Auscultation: normal bowel sounds Percussion/Palpation: abdomen soft; abdomen nontender Musculoskeletal: Extremities: strength 5/5 throughout Skin: no rashes, warm and dry Results & Data Vital Signs (Past 12 Hours) Vital Signs Temp Pulse Pulse Resp BP BP Pulse Ox 05/17/24 09:30 62 129/86 05/17/24 09:15 70 105/47 L 05/17/24 09:06 36.8 C 82 05/17/24 08:00 97 H 05/17/24 08:00 05/17/24 07:36 36.6 C 71 18 124/63 97 05/17/24 04:00 36.7 C 79 18 146/88 H 97 05/17/24 00:00 86 05/16/24 23:44 86 23 97 05/16/24 23:23 36.6 C 86 18 118/76 97 O2 Del Method FiO2 05/17/24 09:30 05/17/24 09:15 05/17/24 09:06 05/17/24 08:00 05/17/24 08:00 Room Air, CPAP 05/17/24 07:36 Room Air 05/17/24 04:00 Room Air 05/17/24 00:00 05/16/24 23:44 21 05/16/24 23:23 CPAP
[2024-05-17] MEDS: HEPARIN SOD (PORCINE) 1000 UNIT/ML IV SCH (10:19)
[2024-05-17] MEDS: HEPARIN SOD (PORCINE) 1000 UNIT/ML IV ONE (10:19)
--- NOTE | 2024-05-17 10:20 | Gastroenterology Progress Note ---
Date of Service May 17, 2024 Assessment & Plan (1) Dysphagia: Plan: 78 year old female with history of ESRD on hemodialysis, COPD on home O2, Parkinson's disease, hypothyroidism, T2DM, RENÉ, hyperlipidemia, anxiety and others below admitted w/ acute on chornic respiratory failure, influenzae A and acute metabolic encephalopathy. GI evaluated last week for dysphagia. This AM she had just finished two slices of toast and denies report of painful or difficultly swallowing to me. As she is tolerating oral in take and no report of aspiration on video swallow there is no current indication for endoscopic evaluation. Would ask she follow up with her outpatient GI team at [facility] for consideration of outpatient evaluation once she is fully recovered from Flu-A. Will sign off. Recall as needed. Diet per [facility] [employer] recommendations. Thank you for allowing us to participate in the care of this patient. Please call with any acute changes, questions or concerns. Please see addendum below with additional recommendation from my supervising physician. I spent a total of 45 minutes on the date of service in review of patient's record, and previously obtained information in person and appropriate medical visit, discussion and education of plan, with patient and/or caregiver, placing orders for tests/referral/procedures as medically necessary and documentation of pertinent clinical information in patient's medical records for their visit today. Admission and Anticipated Discharge Date Admission Date: May 06, 2024 Supervising Physician Co-Signing Physician Notes I saw and examined this patient with our nurse practitioner and agree with her assessment and plan. Denies any dysphagia tolerating oral feedings without difficulty. Further evaluation if symptoms recur. Subjective Pt was seen and evaluated, chart reviewed. Upon arrival to her room she is eating breakfast. Just finished two sliced of dry toast. Applesauce and eggs remaining on tray. Denies painful/difficultly swallowing to me. Video swallow 2024: No aspiration seen. EGD 2022: Normal esophagus. - Normal stomach. - Normal duodenal bulb and second portion of the duodenum. - No specimens collected. Review of Systems Review of Systems: All other findings negative except as noted in HPI. Physical Exam Constitutional: WD/WN, vitals as above Respiratory: normal respiratory effort Skin: no rashes, warm and dry Results & Data Results & Data Vital Signs (Past 12 Hours) Vital Signs Temp Pulse Pulse Resp BP BP Pulse Ox 05/17/24 09:30 62 129/86 05/17/24 09:15 70 105/47 L 05/17/24 09:06 98.2 F 82 05/17/24 08:00 97 H 05/17/24 08:00 05/17/24 07:36 97.9 F 71 18 124/63 97 05/17/24 04:00 98.1 F 79 18 146/88 H 97 05/17/24 00:00 86 05/16/24 23:44 86 23 97 05/16/24 23:23 97.9 F 86 18 118/76 97 O2 Del Method FiO2 05/17/24 09:30 05/17/24 09:15 05/17/24 09:06 05/17/24 08:00 05/17/24 08:00 Room Air, CPAP 05/17/24 07:36 Room Air 05/17/24 04:00 Room Air 05/17/24 00:00 05/16/24 23:44 21 05/16/24 23:23 CPAP Laboratory Results 05/17/24 05/17/24 05/16/24 Range/Units 07:30 05:51 21:25 WBC 13.61 H (4.8-10.8) K/ul RBC 3.34 L (4.20-5.40) M/uL Hgb 11.2 L (12.0-16.0) g/dl Hct 34.0 L (37.0-47.0) % MCV 101.8 H (80.0-100.0) fL MCH 33.5 (25.0-34.0) pg MCHC 32.9 (32.0-36.0) g/dL RDW Std Deviation 51.3 H (36.4-46.3) fL RDW Coeff of Bhavin 16.4 H (11.5-14.5) % Plt Count 298 (130-400) K/uL MPV 9.8 (9.4-12.4) fL Sodium 138 (136-145) mmol/L Potassium 3.0 L (3.5-5.1) mmol/L Chloride 95 L (98-107) mmol/L Carbon Dioxide 28 (21-32) mmol/L Anion Gap 15 H (3-11) BUN 16 (6-23) mg/dl Creatinine 6.01 H* D (0.6-1.2) mg/dl Est Cr Clr Drug Dosing 8.7 ml/min eGFR 6.74 BUN/Creatinine Ratio 2.7 L (10-20) Glucose 132 H (70-99(Fasting)) mg/dl POC Glucose 133 H 146 H (70-99) mg/dl Calcium 10.2 (8.6-10.3) mg/dl Magnesium 1.7 (1.7-2.4) mg/dl Random Vancomycin 23.1 H (10-20) mcg/ml 05/16/24 05/16/24 Range/Units 16:32 11:37 WBC (4.8-10.8) K/ul RBC (4.20-5.40) M/uL Hgb (12.0-16.0) g/dl Hct (37.0-47.0) % MCV (80.0-100.0) fL MCH (25.0-34.0) pg MCHC (32.0-36.0) g/dL RDW Std Deviation (36.4-46.3) fL RDW Coeff of Bhavin (11.5-14.5) % Plt Count (130-400) K/uL MPV (9.4-12.4) fL Sodium (136-145) mmol/L Potassium (3.5-5.1) mmol/L Chloride (98-107) mmol/L Carbon Dioxide (21-32) mmol/L Anion Gap (3-11) BUN (6-23) mg/dl Creatinine (0.6-1.2) mg/dl Est Cr Clr Drug Dosing ml/min eGFR BUN/Creatinine Ratio (10-20) Glucose (70-99(Fasting)) mg/dl POC Glucose 153 H 113 H (70-99) mg/dl Calcium (8.6-10.3) mg/dl Magnesium (1.7-2.4) mg/dl Random Vancomycin (10-20) mcg/ml PG Care Time/CCT Total # of Minutes Spent Total Time Spent with Patient: Total time spent is greater than 50% in coordination of care (as documented) at patient's floor/unit and/or counseling patient: Coding Level of Care Code 58397 SUB INP/OBS CARE 2/35MIN Diagnoses Dysphagia R13.10
--- NOTE | 2024-05-17 11:01 | Hospitalist Progress Note ---
Date of Service May 17, 2024 Assessment & Plan (1) Acute hypoxemic respiratory failure: (2) Acute metabolic encephalopathy: (3) Influenza A: Plan 78 yo F with ESRD on hemodialysis, COPD on 3 L of oxygen, Parkinson's disease, hypothyroidism, type 2 diabetes mellitus, RENÉ, hyperlipidemia, generalized anxiety disorder who was sent from [facility] after she was found to be confused and short of breath. Acute on chronic hypoxic respiratory failure Acute metabolic encephalopathy/delirium Influenza A Multifocal pneumonia --Chest CT:Accounting for respiratory artifact, there are subtle patchy opacities in the posterior right upper lobe, the superior and medial basal segment of the right lower lobe. Less prominent changes are noted involving the inferior aspect of the left upper lobe and the medial basal segment of the left lower lobe. These are all new from the previous examination. Multifocal pneumonia is not excluded. -- BioFire positive for influenza A -Procalcitonin 2.4 Nasal MRSA positive -Blood cultures negative to date -Urine cultures negative --Sputum culture grew normal rebecca Continue Tamiflu-empirically on Zosyn, vancomycin>> transitioned to Rocephin,Doxycycline -- Appreciate critical care input -- Extubated on 05/09/2024 -- Weaned off of pressors Plan to complete 7-day course of antibiotics Reorient frequently to minimize delirium Requiring 4 L supplemental oxygen to maintain saturation Will likely need rehab on discharge Now on 2L of suppl. O2 05/13 WBC uptrending, will obtain CXR, will start zosyn Pt not able to provide hx + cough when takes a deep breath on lung exam ? aspiration 05/14 WBC 23K today given MRSA swab positive will resume vancomycin as well cont. tamiflu ID consult placed 05/15 WBC down to 18K Pt more awake and aware. answers questions. poor appetite 05/16 -05/17 WBC down to 14K, cough improved, appetite seems improved Elevated troponin, Type II [place] Likely demand ischemia secondary to above in setting of end-stage renal disease Less likely ACS --ECHO: EF 50 to 55%. Right ventricle is normal size. Right ventricle systolic pressure is normal. Mild valvular aortic stenosis. Mild to moderate mitral regurgitation. Mild tricuspid regurgitation. Monitor End-stage renal disease Continue dialysis per nephrology Appreciate nephrology input Refused hemodialysis previously but had session on 05/13 and on 05/15 Plan for HD today 05/17 Chronic conditions: Parkinson's disease; continue on carbidopa/levodopa Hypothyroidism; continue levothyroxine RENÉ on CPAP Orthostatic Hypotension; continue on midodrine CODE STATUS Conditional code DVT Px: Heparin SQ Admission and Anticipated Discharge Date Admission Date: May 06, 2024 Subjective Patient seen in follow up Poor historian due to confusion, hearing impairment Patient failed swallow study -> video swallow study- no aspiration but esoph. disease and speech recommends GI eval More awake and more responsive now, answers questions. Denies any chest pain, dyspnea, abd. pain WBC elevated up to 23.5 K on 05/14 - vanco added as MRSA swab positive. Also discussed w/ pharmacy - pt did not finish her tamiflu treatment - so was resumed vanco level elevated previously 32, then 20 yesterday, now 23 WBC down to 13.6K today ID consult pending Review of Systems Review of Systems: All systems reviewed & are unremarkable except as noted in Subjective Physical Exam Physical Exam: General Appearance:Obese, no apparent distress Head: normocephalic, Atraumatic Eyes: normal inspection, EOMI Neck: supple Respiratory/Chest: Decreased breath sounds, No accessory muscle use, + cough with deep inspiration Cardiovascular: S1, S2, No murmur Abdomen/GI:Soft, Non tender, Bowel sounds present Extremities/Musculoskeletal:normal inspection, 1+ edema Neurologic/Psych: awake, alert, answers simple questions, speech fluent, moves extremities Skin: normal color, warm Results & Data Results & Data Vital Signs (Past 12 Hours) Vital Signs Temp Pulse Pulse Resp BP BP Pulse Ox 05/17/24 10:30 76 91/53 L 05/17/24 10:13 73 106/45 L 05/17/24 10:00 78 79/43 L 05/17/24 09:30 62 129/86 05/17/24 09:15 70 105/47 L 05/17/24 09:06 36.8 C 82 05/17/24 08:00 97 H 05/17/24 08:00 05/17/24 07:36 36.6 C 71 18 124/63 97 05/17/24 04:00 36.7 C 79 18 146/88 H 97 05/17/24 00:00 86 05/16/24 23:44 86 23 97 05/16/24 23:23 36.6 C 86 18 118/76 97 O2 Del Method FiO2 05/17/24 10:30 05/17/24 10:13 05/17/24 10:00 05/17/24 09:30 05/17/24 09:15 05/17/24 09:06 05/17/24 08:00 05/17/24 08:00 Room Air, CPAP 05/17/24 07:36 Room Air 05/17/24 04:00 Room Air 05/17/24 00:00 05/16/24 23:44 21 05/16/24 23:23 CPAP Laboratory Results 05/17/24 05/17/24 05/16/24 Range/Units 07:30 05:51 21:25 WBC 13.61 H (4.8-10.8) K/ul RBC 3.34 L (4.20-5.40) M/uL Hgb 11.2 L (12.0-16.0) g/dl Hct 34.0 L (37.0-47.0) % MCV 101.8 H (80.0-100.0) fL MCH 33.5 (25.0-34.0) pg MCHC 32.9 (32.0-36.0) g/dL RDW Std Deviation 51.3 H (36.4-46.3) fL RDW Coeff of Bhavin 16.4 H (11.5-14.5) % Plt Count 298 (130-400) K/uL MPV 9.8 (9.4-12.4) fL Sodium 138 (136-145) mmol/L Potassium 3.0 L (3.5-5.1) mmol/L Chloride 95 L (98-107) mmol/L Carbon Dioxide 28 (21-32) mmol/L Anion Gap 15 H (3-11) BUN 16 (6-23) mg/dl Creatinine 6.01 H* D (0.6-1.2) mg/dl Est Cr Clr Drug Dosing 8.7 ml/min eGFR 6.74 BUN/Creatinine Ratio 2.7 L (10-20) Glucose 132 H (70-99(Fasting)) mg/dl POC Glucose 133 H 146 H (70-99) mg/dl Calcium 10.2 (8.6-10.3) mg/dl Magnesium 1.7 (1.7-2.4) mg/dl Random Vancomycin 23.1 H (10-20) mcg/ml 05/16/24 05/16/24 Range/Units 16:32 11:37 WBC (4.8-10.8) K/ul RBC (4.20-5.40) M/uL Hgb (12.0-16.0) g/dl Hct (37.0-47.0) % MCV (80.0-100.0) fL MCH (25.0-34.0) pg MCHC (32.0-36.0) g/dL RDW Std Deviation (36.4-46.3) fL RDW Coeff of Bhavin (11.5-14.5) % Plt Count (130-400) K/uL MPV (9.4-12.4) fL Sodium (136-145) mmol/L Potassium (3.5-5.1) mmol/L Chloride (98-107) mmol/L Carbon Dioxide (21-32) mmol/L Anion Gap (3-11) BUN (6-23) mg/dl Creatinine (0.6-1.2) mg/dl Est Cr Clr Drug Dosing ml/min eGFR BUN/Creatinine Ratio (10-20) Glucose (70-99(Fasting)) mg/dl POC Glucose 153 H 113 H (70-99) mg/dl Calcium (8.6-10.3) mg/dl Magnesium (1.7-2.4) mg/dl Random Vancomycin (10-20) mcg/ml Medications Administered Current Inpatient Medications Acetaminophen (Acetaminophen 325 Mg Tab) 650 mg PO Q4H PRN PRN Reason: Fever/Mild Pain (Pain 1,2,3) Stop: 06/05/24 21:18 Albuterol (Albut/Ipratrop 3mg/0.5mg Neb 3 Ml Vial) 3 ml INH Q4H PRN PRN Reason: Dyspnea Stop: 06/05/24 21:18 Last Admin: 05/07/24 07:48 Dose: 3 ml Aspirin (Aspirin 81 Mg Chew) 162 mg PO MoWeFr@0900 [facility] Stop: 06/06/24 08:59 Last Admin: 05/17/24 08:35 Dose: 162 mg Atorvastatin Calcium (Atorvastatin 40 Mg Tab) 80 mg PO QPM [facility] Stop: 06/06/24 20:59 Last Admin: 05/16/24 22:02 Dose: 80 mg Carbidopa/Levodopa (Carbidopa/Levodopa 25/100mg Tab) 1 tab PO TIDM [facility] Stop: 06/06/24 07:59 Last Admin: 05/17/24 08:34 Dose: 1 tab Dextrose (Dextrose 50% 50 Ml Syringe) 25 - 50 ml IV UD PRN; Protocol PRN Reason: Hypoglycemia Protocol Stop: 06/06/24 00:38 Docusate Sodium (Docusate Sodium Syrup 100 Mg/10 Ml Udc) 100 mg PO DAILY [facility] Stop: 06/06/24 08:59 Last Admin: 05/17/24 08:35 Dose: 100 mg Escitalopram Oxalate (Escitalopram Oxalate 10 Mg Tab) 10 mg PO QAM [facility] Stop: 06/06/24 08:59 Last Admin: 05/17/24 08:35 Dose: 10 mg Fentanyl Citrate (Fentanyl Bolus From Bag) 50 mcg IV Q60M PRN PRN Reason: Pain or Agitation Stop: 05/20/24 21:18 Last Admin: 05/07/24 13:44 Dose: 50 mcg Glucagon (Glucagon For Inj 1 Mg Vial) 1 mg SQ UD PRN; Protocol PRN Reason: Hypoglycemia Protocol Stop: 06/06/24 00:38 Glucose (Glucose 40% Gel 15 Gm Tube) 15 - 30 gm PO UD PRN; Protocol PRN Reason: Hypoglycemia Protocol Stop: 06/06/24 00:38 Glucose (Glucose 10 Tab/Tube) 4 - 8 tab PO UD PRN; Protocol PRN Reason: Hypoglycemia Protocol Stop: 06/06/24 00:38 Heparin Sodium (Porcine) (Heparin Sod 5,000 Unit/0.5 Ml Vial) 5,000 units SQ Q8 [facility] Stop: 06/05/24 21:59 Last Admin: 05/17/24 05:06 Dose: Not Given Pantoprazole Sodium (Protonix) 40 mg in 10 mls @ 5 mls/min IV DAILY [facility] Stop: 06/06/24 08:59 Last Admin: 05/17/24 08:35 Dose: 5 mls/min Piperacillin Sod/Tazobactam Sod (Zosyn) 4.5 gm in 100 mls @ 25 mls/hr IV Q12H [facility]; Protocol Stop: 05/23/24 16:29 Last Infusion: 05/17/24 10:18 Dose: Infused Insulin Aspart (Insulin Aspart Per Unit Charge) 0 units SC ACHS [facility] Stop: 06/12/24 11:44 Last Admin: 05/17/24 08:34 Dose: 2 units Lactobacillus Acidophilus (Advanced Probiotic 625 Mg Capsule) 1,250 mg PO DAILY [facility] Stop: 06/15/24 09:14 Last Admin: 05/17/24 08:35 Dose: 1,250 mg Levothyroxine Sodium (Levothyroxine Sodium 125 Mcg Tablet) 125 mcg PO DAILYBB [facility] Stop: 06/06/24 06:29 Last Admin: 05/17/24 05:33 Dose: 125 mcg Lidocaine (Lidocaine 4% Cream 15 Gm Tube) 1 appln EXT PRN PRN PRN Reason: dialysis fistula Stop: 06/11/24 14:20 Last Admin: 05/13/24 09:29 Dose: 1 appln Midodrine (Midodrine Hcl 2.5 Mg Tab) 5 mg PO MoWeFr@0900 [facility] Stop: 06/06/24 08:59 Last Admin: 05/17/24 08:35 Dose: 5 mg Midodrine (Midodrine Hcl 2.5 Mg Tab) 5 mg PO MoWeFr@0800 [facility] Stop: 06/06/24 07:59 Last Admin: 05/17/24 08:35 Dose: 5 mg Miscellaneous (Carbohydrates For Hypoglycemia ) 15 - 30 gm PO UD PRN PRN Reason: Hypoglycemia Protocol Stop: 06/06/24 00:38 Miscellaneous (Pending Order: Give Oseltamivir (Tamiflu) After Each Hd Session) 1 each N/A DAILY@1600 [facility] Stop: 05/18/24 23:59 Last Admin: 05/16/24 16:41 Dose: Not Given Miscellaneous Information (Vancomycin Consult Active) 1 each N/A UD PRN PRN Reason: Consult Stop: 06/13/24 07:57 Oseltamivir Phosphate (Oseltamivir Phosphate Susp 30 Mg/5 Ml Udp) 30 mg PO .after each HD session PRN PRN Reason: hemodialysis treatment Stop: 05/18/24 18:00 Last Admin: 05/15/24 14:31 Dose: 30 mg Polyethylene Glycol (Polyethylene (Miralax) 17 Gm Pack) 17 gm NG DAILY [facility] Stop: 06/06/24 08:59 Last Admin: 05/17/24 08:35 Dose: 17 gm Vitamin B Complex/Folic Acid (Nephrocaps) 1 cap PO DAILY [facility] Stop: 06/06/24 08:59 Last Admin: 05/17/24 08:35 Dose: 1 cap Vitamin D (Cholecalciferol 25 Mcg (1000 Units) Tab) 25 mcg PO DAILY [facility] Stop: 06/06/24 08:59 Last Admin: 05/17/24 08:35 Dose: 25 mcg
--- NOTE | 2024-05-17 13:53 | Pharmacy Report ---
Pharmacy PK ABX Note - Date of Service May 17, 2024 - Assessment and Plan Assessment 05/17: Day # 4 vancomycin (+ zosyn, tamiflu). Received a single 2gm dose on 05/14 ~ 0930 AM. HD planned for today but refused by pt. * Awaiting ID Consult 3: Day # 3 vancomycin (+ zosyn, tamiflu). Received a single 2gm dose on 05/14 ~ 0930 AM. HD planned for tomorrow (resume F schedule per nephro). 05/15: Continues on vancomycin, zosyn, and tamiflu. Day # 2 vancomycin. HD today. 05/14: 78 year old F receiving Vancomycin, Zosyn and Tamiflu empirically for treatment of possible secondary bacterial pneumonia with influenza A. * Day #1 of Vancomycin and Tamiflu. Day #2 of Zosyn. * Afebrile. WBC continues to worsen, 23.5k today. Patient started on HD this admission, no schedule yet. Spoke with otolaryngology rep today and no planned HD today. Next session planned for tomorrow (05/15/24). * All cx from this admission are negative. MRSA swab and Flu A positive. * Will give a 20 mg/kg vanc load today and order pre-HD level for tomorrow. Plan Vancomycin * Random level this AM, 23.1mcg/mL, therapeutic. HD Refused. No HD today. Hold vancomycin dose today. * Planned HD tomorrow - random level tomorrow AM (pre-HD) to guide post-HD dose. Pharmacy will continue to follow and will adjust dose/frequency as necessary. Thank you.
--- NOTE | 2024-05-17 16:39 | XRay Report ---
INDICATION: Cough. TECHNIQUE: Frontal radiograph of the chest. COMPARISON: Radiograph from 05/06/2024. FINDINGS: Cardiomegaly. Low inspiratory depth. Pulmonary vasculature appear within normal limits. Subsegmental atelectasis in the lung bases. No infiltrate, pleural effusion or pneumothorax. No acute osseous abnormality evident. IMPRESSION: No acute cardiopulmonary process. Electronically signed by Barak Caro 05-17-2024 4:39 PM
[2024-05-18 07:19] LABS: Hematocrit (blood only) 35.4 % (37.0-47.0); Hemoglobin 12.1 g/dl (12.0-16.0); Mean Corpuscular Hemoglobin 34.8 pg (25.0-34.0); Mean Corpuscular Hgb Conc 34.2 g/dL (32.0-36.0); Mean Corpuscular Volume 101.7 fL (80.0-100.0); Mean Platelet Volume 9.9 fL (9.4-12.4); Platelet Count 285 K/uL (130-400); RDW Coefficient of Variation 16.6 % (11.5-14.5); RDW Standard Deviation 51.5 fL (36.4-46.3); Red Blood Count 3.48 M/uL (4.20-5.40); White Blood Count 10.24 K/ul (4.8-10.8)
[2024-05-18 07:28] LABS: BUN Creatinine Ratio 1.9 (10-20); Calcium 10.3 mg/dl (8.6-10.3); Magnesium 1.9 mg/dl (1.7-2.4); Phosphorus 4.8 mg/dl (2.5-4.9); Potassium 3.4 mmol/L (3.5-5.1)
[2024-05-18] MEDS: PANTOprazole 40 MG TAB PO SCH (08:01)
--- NOTE | 2024-05-18 09:02 | Hospitalist Progress Note ---
Date of Service May 18, 2024 Assessment & Plan (1) Acute hypoxemic respiratory failure: (2) Acute metabolic encephalopathy: (3) Influenza A: Plan 78 yo F with ESRD on hemodialysis, COPD on 3 L of oxygen, Parkinson's disease, hypothyroidism, type 2 diabetes mellitus, RENÉ, hyperlipidemia, generalized anxiety disorder who was sent from [facility] after she was found to be confused and short of breath. Acute on chronic hypoxic respiratory failure Acute metabolic encephalopathy/delirium Influenza A Multifocal pneumonia --Chest CT:Accounting for respiratory artifact, there are subtle patchy opacities in the posterior right upper lobe, the superior and medial basal segment of the right lower lobe. Less prominent changes are noted involving the inferior aspect of the left upper lobe and the medial basal segment of the left lower lobe. These are all new from the previous examination. Multifocal pneumonia is not excluded. -- BioFire positive for influenza A -Procalcitonin 2.4 Nasal MRSA positive -Blood cultures negative to date -Urine cultures negative --Sputum culture grew normal rebecca Continue Tamiflu-empirically on Zosyn, vancomycin>> transitioned to Rocephin,Doxycycline -- Appreciate critical care input -- Extubated on 05/09/2024 -- Weaned off of pressors Plan to complete 7-day course of antibiotics Reorient frequently to minimize delirium Requiring 4 L supplemental oxygen to maintain saturation Will likely need rehab on discharge Now on 2L of suppl. O2 05/13 WBC uptrending, will obtain CXR, will start zosyn Pt not able to provide hx + cough when takes a deep breath on lung exam ? aspiration 05/14 WBC 23K today given MRSA swab positive will resume vancomycin as well cont. tamiflu ID consult placed 05/15 WBC down to 18K Pt more awake and aware. answers questions. poor appetite 05/16 -05/17 WBC down to 14K, cough improved, appetite seems improved 05/18/24 WBC 10K, Discussed w/ ID yesterday - stopped zosyn, MRSA swab positive ID to see pt today Elevated troponin, Type II [place] Likely demand ischemia secondary to above in setting of end-stage renal disease Less likely ACS --ECHO: EF 50 to 55%. Right ventricle is normal size. Right ventricle systolic pressure is normal. Mild valvular aortic stenosis. Mild to moderate mitral regurgitation. Mild tricuspid regurgitation. Monitor End-stage renal disease Continue dialysis per nephrology Appreciate nephrology input Refused hemodialysis previously but had session on 05/13, 05/15, on 05/17 Chronic conditions: Parkinson's disease; continue on carbidopa/levodopa Hypothyroidism; continue levothyroxine RENÉ on CPAP Orthostatic Hypotension; continue on midodrine CODE STATUS Conditional code DVT Px: Heparin SQ Admission and Anticipated Discharge Date Admission Date: May 06, 2024 Subjective Patient seen in follow up Poor historian due to confusion, hearing impairment Patient failed swallow study -> video swallow study- no aspiration but esoph. disease and speech recommends GI eval More awake and more responsive now, answers questions. Currently w/ book crossword puzzles Denies any chest pain, dyspnea, abd. pain WBC elevated up to 23.5 K on 05/14 - vanco added as MRSA swab positive. Also discussed w/ pharmacy - pt did not finish her tamiflu treatment - so was resumed vanco level elevated previously 32, then 20 -> 23 ->17 WBC down to 10K today (normalized) MRSA swab positive , ID consulted - discussed w/ yesterday - stopped zosyn. ID to see today Review of Systems Review of Systems: All systems reviewed & are unremarkable except as noted in Subjective Physical Exam Physical Exam: General Appearance:Obese, no apparent distress Head: normocephalic, Atraumatic Eyes: normal inspection, EOMI Neck: supple Respiratory/Chest: Decreased breath sounds, No accessory muscle use Cardiovascular: S1, S2, No murmur Abdomen/GI:Soft, Non tender, Bowel sounds present Extremities/Musculoskeletal:normal inspection, 1+ edema Neurologic/Psych: awake, alert, answers simple questions, speech fluent, moves extremities Skin: normal color, warm Results & Data Results & Data Vital Signs (Past 12 Hours) Vital Signs Temp Pulse Pulse Resp BP Pulse Ox O2 Del Method 05/18/24 07:25 36.5 C 94 H 19 101/62 92 Room Air 05/18/24 07:20 20 05/18/24 07:20 Room Air 05/18/24 05:46 74 05/18/24 04:00 36.5 C 76 18 123/75 95 Room Air 05/18/24 02:10 64 21 91 05/18/24 00:00 76 05/17/24 23:03 70 21 94 05/17/24 22:34 36.6 C 65 18 118/66 92 Room Air FiO2 05/18/24 07:25 05/18/24 07:20 05/18/24 07:20 05/18/24 05:46 05/18/24 04:00 05/18/24 02:10 21 05/18/24 00:00 05/17/24 23:03 21 05/17/24 22:34 Laboratory Results 05/18/24 05/18/24 05/17/24 Range/Units 07:25 06:39 20:59 WBC 10.24 (4.8-10.8) K/ul RBC 3.48 L (4.20-5.40) M/uL Hgb 12.1 (12.0-16.0) g/dl Hct 35.4 L (37.0-47.0) % MCV 101.7 H (80.0-100.0) fL MCH 34.8 H (25.0-34.0) pg MCHC 34.2 (32.0-36.0) g/dL RDW Std Deviation 51.5 H (36.4-46.3) fL RDW Coeff of Bhavin 16.6 H (11.5-14.5) % Plt Count 285 (130-400) K/uL MPV 9.9 (9.4-12.4) fL Sodium 139 (136-145) mmol/L Potassium 3.4 L (3.5-5.1) mmol/L Chloride 98 (98-107) mmol/L Carbon Dioxide 30 (21-32) mmol/L Anion Gap 11 (3-11) BUN 9 (6-23) mg/dl Creatinine 4.80 H* D (0.6-1.2) mg/dl Est Cr Clr Drug Dosing 11.0 ml/min eGFR 8.83 BUN/Creatinine Ratio 1.9 L (10-20) Glucose 108 H (70-99(Fasting)) mg/dl POC Glucose 119 H 95 (70-99) mg/dl Calcium 10.3 (8.6-10.3) mg/dl Phosphorus 4.8 (2.5-4.9) mg/dl Magnesium 1.9 (1.7-2.4) mg/dl Random Vancomycin 17.5 (10-20) mcg/ml 05/17/24 05/17/24 Range/Units 16:21 13:03 WBC (4.8-10.8) K/ul RBC (4.20-5.40) M/uL Hgb (12.0-16.0) g/dl Hct (37.0-47.0) % MCV (80.0-100.0) fL MCH (25.0-34.0) pg MCHC (32.0-36.0) g/dL RDW Std Deviation (36.4-46.3) fL RDW Coeff of Bhavin (11.5-14.5) % Plt Count (130-400) K/uL MPV (9.4-12.4) fL Sodium (136-145) mmol/L Potassium (3.5-5.1) mmol/L Chloride (98-107) mmol/L Carbon Dioxide (21-32) mmol/L Anion Gap (3-11) BUN (6-23) mg/dl Creatinine (0.6-1.2) mg/dl Est Cr Clr Drug Dosing ml/min eGFR BUN/Creatinine Ratio (10-20) Glucose (70-99(Fasting)) mg/dl POC Glucose 96 86 (70-99) mg/dl Calcium (8.6-10.3) mg/dl Phosphorus (2.5-4.9) mg/dl Magnesium (1.7-2.4) mg/dl Random Vancomycin (10-20) mcg/ml Medications Administered Current Inpatient Medications Acetaminophen (Acetaminophen 325 Mg Tab) 650 mg PO Q4H PRN PRN Reason: Fever/Mild Pain (Pain 1,2,3) Stop: 06/05/24 21:18 Albuterol (Albut/Ipratrop 3mg/0.5mg Neb 3 Ml Vial) 3 ml INH Q4H PRN PRN Reason: Dyspnea Stop: 06/05/24 21:18 Last Admin: 05/07/24 07:48 Dose: 3 ml Aspirin (Aspirin 81 Mg Chew) 162 mg PO MoWeFr@0900 [facility] Stop: 06/06/24 08:59 Last Admin: 05/17/24 08:35 Dose: 162 mg Atorvastatin Calcium (Atorvastatin 40 Mg Tab) 80 mg PO QPM [facility] Stop: 06/06/24 20:59 Last Admin: 05/17/24 21:02 Dose: 80 mg Carbidopa/Levodopa (Carbidopa/Levodopa 25/100mg Tab) 1 tab PO TIDM [facility] Stop: 06/06/24 07:59 Last Admin: 05/18/24 08:02 Dose: 1 tab Dextrose (Dextrose 50% 50 Ml Syringe) 25 - 50 ml IV UD PRN; Protocol PRN Reason: Hypoglycemia Protocol Stop: 06/06/24 00:38 Docusate Sodium (Docusate Sodium Syrup 100 Mg/10 Ml Udc) 100 mg PO DAILY [facility] Stop: 06/06/24 08:59 Last Admin: 05/18/24 08:00 Dose: 100 mg Escitalopram Oxalate (Escitalopram Oxalate 10 Mg Tab) 10 mg PO QAM [facility] Stop: 06/06/24 08:59 Last Admin: 05/18/24 08:03 Dose: 10 mg Fentanyl Citrate (Fentanyl Bolus From Bag) 50 mcg IV Q60M PRN PRN Reason: Pain or Agitation Stop: 05/20/24 21:18 Last Admin: 05/07/24 13:44 Dose: 50 mcg Glucagon (Glucagon For Inj 1 Mg Vial) 1 mg SQ UD PRN; Protocol PRN Reason: Hypoglycemia Protocol Stop: 06/06/24 00:38 Glucose (Glucose 40% Gel 15 Gm Tube) 15 - 30 gm PO UD PRN; Protocol PRN Reason: Hypoglycemia Protocol Stop: 06/06/24 00:38 Glucose (Glucose 10 Tab/Tube) 4 - 8 tab PO UD PRN; Protocol PRN Reason: Hypoglycemia Protocol Stop: 06/06/24 00:38 Heparin Sodium (Porcine) (Heparin Sod 5,000 Unit/0.5 Ml Vial) 5,000 units SQ Q8 [facility] Stop: 06/05/24 21:59 Last Admin: 05/18/24 08:05 Dose: Not Given Insulin Aspart (Insulin Aspart Per Unit Charge) 0 units SC ACHS [facility] Stop: 06/12/24 11:44 Last Admin: 05/18/24 07:52 Dose: Not Given Lactobacillus Acidophilus (Advanced Probiotic 625 Mg Capsule) 1,250 mg PO DAILY [facility] Stop: 06/15/24 09:14 Last Admin: 05/18/24 08:02 Dose: 1,250 mg Levothyroxine Sodium (Levothyroxine Sodium 125 Mcg Tablet) 125 mcg PO DAILYBB [facility] Stop: 06/06/24 06:29 Last Admin: 05/18/24 06:40 Dose: 125 mcg Lidocaine (Lidocaine 4% Cream 15 Gm Tube) 1 appln EXT PRN PRN PRN Reason: dialysis fistula Stop: 06/11/24 14:20 Last Admin: 05/13/24 09:29 Dose: 1 appln Midodrine (Midodrine Hcl 2.5 Mg Tab) 5 mg PO MoWeFr@0900 [facility] Stop: 06/06/24 08:59 Last Admin: 05/17/24 08:35 Dose: 5 mg Midodrine (Midodrine Hcl 2.5 Mg Tab) 5 mg PO MoWeFr@0800 [facility] Stop: 06/06/24 07:59 Last Admin: 05/17/24 08:35 Dose: 5 mg Miscellaneous (Carbohydrates For Hypoglycemia ) 15 - 30 gm PO UD PRN PRN Reason: Hypoglycemia Protocol Stop: 06/06/24 00:38 Miscellaneous (Pending Order: Give Oseltamivir (Tamiflu) After Each Hd Session) 1 each N/A DAILY@1600 [facility] Stop: 05/18/24 23:59 Last Admin: 05/17/24 17:03 Dose: Not Given Miscellaneous Information (Vancomycin Consult Active) 1 each N/A UD PRN PRN Reason: Consult Stop: 06/13/24 07:57 Oseltamivir Phosphate (Oseltamivir Phosphate Susp 30 Mg/5 Ml Udp) 30 mg PO .after each HD session PRN PRN Reason: hemodialysis treatment Stop: 05/18/24 18:00 Last Admin: 05/15/24 14:31 Dose: 30 mg Pantoprazole Sodium (Pantoprazole 40 Mg Tab) 40 mg PO DAILY [facility]; Protocol Stop: 06/17/24 08:59 Last Admin: 05/18/24 08:01 Dose: 40 mg Polyethylene Glycol (Polyethylene (Miralax) 17 Gm Pack) 17 gm NG DAILY [facility] Stop: 06/06/24 08:59 Last Admin: 05/18/24 08:03 Dose: 17 gm Vitamin B Complex/Folic Acid (Nephrocaps) 1 cap PO DAILY [facility] Stop: 06/06/24 08:59 Last Admin: 05/18/24 08:02 Dose: 1 cap Vitamin D (Cholecalciferol 25 Mcg (1000 Units) Tab) 25 mcg PO DAILY [facility] Stop: 06/06/24 08:59 Last Admin: 05/18/24 08:02 Dose: 25 mcg
--- NOTE | 2024-05-18 10:12 | Pharmacy Report ---
Pharmacy PK ABX Note - Date of Service May 18, 2024 - Assessment and Plan Assessment 05/18: Day # 5 vancomycin (MRSA nasal +) and tamiflu (last day of tx), zosyn DC'd yesterday. * Received a single Vancomycin 2gm dose on 05/14 ~ 0930 AM. Plan for normal schedule HD MWF. * ID to see pt today. 05/17: Day # 4 vancomycin (+ zosyn, tamiflu). Received a single 2gm dose on 05/14 ~ 30 AM. HD planned for today but was discontinued early d/t low BP. * Awaiting ID Consult 05/16: Day # 3 vancomycin (+ zosyn, tamiflu). Received a single 2gm dose on 05/14 ~ 30 AM. HD planned for tomorrow (resume MWF schedule per nephro). 05/15: Continues on vancomycin, zosyn, and tamiflu. Day # 2 vancomycin. HD today. 05/14: 78 year old F receiving Vancomycin, Zosyn and Tamiflu empirically for treatment of possible secondary bacterial pneumonia with influenza A. * Day #1 of Vancomycin and Tamiflu. Day #2 of Zosyn. * Afebrile. WBC continues to worsen, 23.5k today. Patient started on HD this admission, no schedule yet. Spoke with desktop support engineer today and no planned HD today. Next session planned for tomorrow (05/15/24). * All cx from this admission are negative. MRSA swab and Flu A positive. * Will give a 20 mg/kg vanc load today and order pre-HD level for tomorrow. Plan Vancomycin * Random level this AM, 17.5mcg/mL, therapeutic. No HD scheduled today. Hold vancomycin dose today. * Planned HD Friday - random level tomorrow AM (pre-HD) to guide post-HD dose. Pharmacy will continue to follow and will adjust dose/frequency as necessary. Thank you.
--- NOTE | 2024-05-18 11:59 | Nephrology Progress Note ---
Date of Service May 18, 2024 Assessment & Plan Admission and Anticipated Discharge Date Admission Date: May 06, 2024 Subjective Assessment & Plan (1) ESRD (end stage renal disease) on dialysis: Plan: tolerated HD May 10 for 3 L . had 1.5L UF on 05/11, shortened tx. refused HD on 05/12 routine tx. refused 05/13 AM but then allowed tx 05/13 PM and t olerated 1.5L. at 05/15 tx only tolerated 500 mL UF. off of 02NC and on RA late 05/14 afternoon severe illness but improving > extub'd 05/09 after Acute resp failure on ventilator. had pressor needs earlier this stay. since about 05/13 struggle has been to eat/swallow Will try to aim for SBP > 90 on [id number] mg before HD, same as OP. She has persistent elevated WBC and had evidence of Sepsis--all cxs negative. but plm edema, multifocal NIETO on CXR/CT and remains hypoxic ABx for superimposed ? PNA on flu A > doxy, ceftriax course completed; on zosyn now persistent hypokalemia--even with 4 K bath. Change to regular diet. Not eating much anyway. CXR and CT shows e/o Pulm edema and pl eff and Multifocal pneumonia. will try to take whatever we can. Already running into challenges with Low BP. But she is on RA so maybe not as bad as the Imaging shows. Plan for 1 kilo tomorrow with 4 k bath EMLA before HD (2) Acute on chronic hypoxic respiratory failure: Plan: has COPD NO baseline 02 (3) Influenza A: Plan: Had severe presentation with this. Makes everything more difficult including Dialysis. Subjective had dialysis yesterday. BP was low--only 0.5 l removed. Not eating anything. K is low. BP drops very easily with dialysis despite midodrine AVF fine Physical Exam Constitutional: well developed (looks tired) and well nourished; no acute distress Eyes: EOM intact bilaterally ENMT: Ears: + hearing impairment Nose: no external nose abnormality Mouth: + dry oral mucous membranes Respiratory: normal respiratory effort; no cough Auscultation: + diminished lung sounds Cardiovascular: RRR, no murmur, no edema Extremities: + AV fistula ( R arm + t/b) Gastrointestinal (Abdomen): Inspection/Auscultation: normal bowel sounds Percussion/Palpation: abdomen soft; abdomen nontender Musculoskeletal: Extremities: strength 5/5 throughout Skin: no rashes, warm and dry Results & Data Vital Signs (Past 12 Hours) Vital Signs Temp Pulse Pulse Resp BP Pulse Ox O2 Del Method 05/18/24 11:38 37 C 80 18 112/68 94 Room Air 05/18/24 07:25 36.5 C 94 H 19 101/62 92 Room Air 05/18/24 07:20 20 05/18/24 07:20 Room Air 05/18/24 05:46 74 05/18/24 04:00 36.5 C 76 18 123/75 95 Room Air 05/18/24 02:10 64 21 91 05/18/24 00:00 76 FiO2 05/18/24 11:38 05/18/24 07:25 05/18/24 07:20 05/18/24 07:20 05/18/24 05:46 05/18/24 04:00 05/18/24 02:10 21 05/18/24 00:00
--- NOTE | 2024-05-18 15:23 | Infectious Disease Consult ---
Date of Service May 18, 2024 Telehealth Information I performed this visit using a real-time telehealth connection between my location and the patients location ([facility]). After connecting through interactive tele-video, patient was identified by name and date of and/or wristband check.Patient (or authorized healthcare development representative) was informed that this was a telemedicine visit and it was being conducted confidentially over secure lines. My office door was closed and no one else was present in the room with me.Patient (or authorized healthcare development representative) provided consent to proceed with the visit, expressed an understanding of privacy and security of the telemedicine visit, and gave permission to have a hospital development representative in the room in order to assist with the visit and to conduct portions of the visit, as needed. I informed the patient (or authorized healthcare development representative) that I reviewed their record and presented the opportunity for them to ask any questions regarding the visit today. The patient agreed to participate. Assessment & Plan (1) Acute encephalopathy: (2) Influenza A: (3) Pneumonia: Plan Patient presenting for acute shortness of breaths in setting of influenza A infection. Initial CT imaging concerning for superimposed bacterial pneumonia, patient now s/p IV antibiotics with successful extubation on 05/09 and repeat chest x-ray showing no acute cardiopulmonary process. Culture data remains negative to date, vital signs and WBC within normal limits. - agree with discontinuation of antimicrobials - monitor patient for further signs of infective process - ID will sign off, but we will be available if there is any further questions or concerns Case discussed with ID attending Dr. Jazmine Toribio MD Infectious Disease PGY-5 [facility] I discussed this patient with Dr Toribio and I personally interacted with her via telehealth and I agree with his assessment and treatment plan History of Present Illness History of Present Illness 78-year-old female with a past medical history of COPD on 3 L oxygen, Parkinson's disease, type 2 diabetes mellitus presenting from [facility] after he was found to be altered with a acute shortness of breath. Subsequently brought to the hospital further evaluation, found to have acute hypoxic respiratory failure in setting of influenza A requiring intubation. CT chest showing subtle patchy opacities in the posterior right upper lobe, superior and medial basal segments of the right lower lobe. Concern for superimposed bacterial pneumonia patient was given vancomycin/Zosyn in addition to Tamiflu. Patient extubated on 05/09 with significant improvement in respiratory status, current chest x-ray showing no acute cardiopulmonary process. At this time patient remains afebrile, HR within normal limits, WBC within normal limits, currently on room air. Currently off IV antibiotics. Allergies Allergy/AdvReac Type Severity Reaction Status Date / Time No Known Allergies Allergy Verified 05/06/24 20:04 Home Medications Medication Instructions Recorded Confirmed Type aspirin 81 mg tablet,delayed 162 mg PO 3XWK 11/15/21 05/06/24 History release atorvastatin 80 mg tablet 80 mg PO QPM 11/15/21 05/06/24 History carbidopa 25 mg-levodopa 100 mg 1 tab PO TIDM 11/15/21 05/06/24 History tablet docusate sodium 100 mg capsule 100 mg PO DAILY 11/15/21 05/06/24 History (Colace) levothyroxine 125 mcg tablet 125 mcg PO QAM 11/15/21 05/06/24 History pregabalin 100 mg capsule 100 mg PO BID 11/15/21 05/06/24 History pantoprazole 20 mg tablet,delayed 20 mg PO BID 05/23/22 05/06/24 History release epinephrine 0.3 mg/0.3 mL 0.3 mg IM DIRECTED PRN 09/05/22 05/06/24 History injection, auto-injector (EpiPen) Anaphylaxis melatonin 10 mg tablet 10 mg PO HS 09/05/22 05/06/24 History ferric citrate 210 mg iron tablet 420 mg PO WM 01/21/23 05/06/24 History (Auryxia) fluticasone furoate 200 1 inh inhalation AMHS 01/21/23 05/06/24 History mcg-vilanterol 25 mcg/dose inhalation powder (Breo Ellipta) cholecalciferol (vitamin D3) 25 25 mcg PO DAILY 10/27/23 05/06/24 History mcg (1,000 unit) capsule midodrine 5 mg tablet 5 mg PO TID 10/27/23 05/06/24 History vitamin B complex-vitamin C-folic 1 tab PO DAILY 10/27/23 05/06/24 History acid 0.8 mg tablet (Nanci-Samuel) acetaminophen 325 mg tablet 325 - 650 mg PO Q6 PRN MILD-SEVERE 05/06/24 05/06/24 History PAIN acetaminophen 500 mg tablet 500 mg PO QID 3G 05/06/24 05/06/24 History dextromethorphan-guaifenesin 10 2.5 ml PO Q4 PRN Cough 05/06/24 05/06/24 History mg-200 mg/5 mL oral liquid diclofenac sodium 1 % topical gel 2 g topical QID 05/06/24 05/06/24 History escitalopram oxalate 10 mg tablet 10 mg PO QAM 05/06/24 05/06/24 History ferric citrate 210 mg iron tablet 210 mg PO . NEEDED PRN WITH 05/06/24 05/06/24 History (Auryxia) SNACKS guaifenesin 100 mg/5 mL oral 200 mg PO Q4H PRN Cough 05/06/24 05/06/24 History liquid (Siltussin SA) ipratropium 0.5 mg-albuterol 3 mg 3 ml inhalation Q4 PRN Wheezing 05/06/24 05/06/24 History (2.5 mg base)/3 mL nebulization soln ipratropium 0.5 mg-albuterol 3 mg 3 ml inhalation TID 05/06/24 05/06/24 History (2.5 mg base)/3 mL nebulization soln lidocaine-prilocaine 2.5 %-2.5 % 1 applic topical 3XWK 05/06/24 05/06/24 History topical cream midodrine 10 mg tablet 5 mg PO 3XWK 05/06/24 05/06/24 History midodrine 5 mg tablet 5 mg PO UD 05/06/24 05/06/24 History ondansetron HCl 4 mg tablet 4 mg PO Q6H PRN Nausea And Vomiting 05/06/24 05/06/24 History sertraline 25 mg tablet 25 mg PO UD 05/06/24 05/06/24 History sertraline 50 mg tablet 50 mg PO QAM 05/06/24 05/06/24 History Patient History Medical History ESRD on hemodialysis Thickened endometrium Acute ischemic stroke NSTEMI (non-ST elevated myocardial infarction) Elevated troponin I level AV fistula R arm Limb alert care status R arm History of recent hospitalization d/c 09/09/22>per medical record, pt sent to ER at [facility] following dialysis for reddened sores on her buttocks. Admitting dx was enterococcus UTI, decubitus ulcer and sacral cellulitis. Difficult intravenous access Black stools Mobility impaired pt non compliant with hx pt treatments / PT IS IN WHEELCHAIR/TOTAL ASSIST Poor short term memory [place] (hard of hearing) COPD (chronic obstructive pulmonary disease) no medications for currently History of stroke 2019- pts spouse poor historian pt denies hx stroke History of anesthesia reaction "hard time waking up" Hx: recurrent pneumonia History of COVID-19 ? early 2021- mild congestion, no hospitalization, no current issues Non-ST elevation IN (NSTEMI) pt spouse not sure/ mild ? remembers something mentioned in hx/ ? details ESRD (end stage renal disease) on dialysis tues, thur & sat [facility] Aspiration pneumonia HX Morbid obesity Rheumatoid arthritis ? current status/no meds for Chronic diastolic heart failure EF 50% on 01/2020 echo RACHEL (iron deficiency anemia) Subdural hematoma hx fall 2019 - tx to [facility]/no surgical intervention RENÉ on CPAP Depression Meniere's disease Generalized anxiety disorder Dyslipidemia Restless leg syndrome Diabetes mellitus, type II hx / NO MEDS HTN (hypertension) Surgical History Hx of arteriovenostomy for renal dialysis right arm History of tubal ligation History of carpal tunnel surgery B/L History of orthopedic surgery " bilat heel surgery" H/O sinus surgery Hx of total knee arthroplasty B/L Family History Other AAA (abdominal aortic aneurysm) Diabetes Family history non-contributory Hypertension Myotonic dystrophy Social History Smoking Status: Unknown if ever smoked Tobacco Type: Cigarettes Cigarettes Per Day: 0.25ppd; Second Hand Exposure: No; Do You Dip or Chew Tobacco: No; Hx Alcohol Use: No Hx Substance Use: No Preferred Language: Northern Irish Communication Ability: Impaired Communication Ability Comment: intubated Call Center Assistant Required: No Beliefs That Will Affect Care: None marital status: Current Living Situation: [facility] Current Living Situation Comment: [facility] Other Information That Helps Us Care for You: No Feels Safe at Home: Yes Safety Concerns: Feels Safe At This Time Assistive Devices: Mechanical Lift, Oxygen - Continuous and Wheelchair Review of Systems Constitutional: No fever Eyes: No symptoms HENT: No symptoms Cardiovascular: denies chest pain/palpitations Respiratory: denies shortness of breath, cough Gastrointestinal: No abdominal pain, nausea/vomiting Skin: No rash, lesions Neurological: feels tired, denies weakness Results & Data Vital Signs (Past 12 Hours) Vital Signs Temp Pulse Pulse Resp BP Pulse Ox O2 Del Method 05/18/24 15:04 Room Air 05/18/24 13:05 81 05/18/24 11:38 37 C 80 18 112/68 94 Room Air 05/18/24 07:25 36.5 C 94 H 19 101/62 92 Room Air 05/18/24 07:20 20 05/18/24 07:20 Room Air 05/18/24 05:46 74 05/18/24 04:00 36.5 C 76 18 123/75 95 Room Air Laboratory Results Laboratory Results WBC 10.24 K/ul (4.8-10.8) 05/18/24 06:39 RBC 3.48 M/uL (4.20-5.40) L 05/18/24 06:39 Hgb 12.1 g/dl (12.0-16.0) 05/18/24 06:39 POC Hgb 9.2 g/dl (12.0-16.0) L 05/09/24 12:32 Hct 35.4 % (37.0-47.0) L 05/18/24 06:39 POC Hct 27 % (37-47) L 05/09/24 12:32 MCV 101.7 fL (80.0-100.0) H 05/18/24 06:39 MCH 34.8 pg (25.0-34.0) H 05/18/24 06:39 MCHC 34.2 g/dL (32.0-36.0) 05/18/24 06:39 RDW Std Deviation 51.5 fL (36.4-46.3) H 05/18/24 06:39 RDW Coeff of Bhavin 16.6 % (11.5-14.5) H 05/18/24 06:39 Plt Count 285 K/uL (130-400) 05/18/24 06:39 MPV 9.9 fL (9.4-12.4) 05/18/24 06:39 Immature Gran % (Auto) 6.7 % 05/09/24 04:39 Neut % (Auto) 70.4 % 05/09/24 04:39 Lymph % (Auto) 13.1 % 05/09/24 04:39 [place] % (Auto) 8.5 % 05/09/24 04:39 Eos % (Auto) 0.7 % 05/09/24 04:39 Baso % (Auto) 0.6 % 05/09/24 04:39 Neut # (Auto) 6.99 K/uL (1.40-6.50) H 05/09/24 04:39 Lymph # (Auto) 1.30 K/uL (1.20-3.40) 05/09/24 04:39 [place] # (Auto) 0.84 K/uL (0.11-0.59) H 05/09/24 04:39 Eos # (Auto) 0.07 K/uL (0.00-0.50) 05/09/24 04:39 Baso # (Auto) 0.06 K/uL (0.00-0.20) 05/09/24 04:39 Immature Gran # (Auto) 0.67 K/uL (0.01-0.20) H 05/09/24 04:39 Absolute Nucleated RBC 0.02 K/uL (0.00-0.12) 05/16/24 06:33 Nucleated RBC % (auto) 0.1 % 05/16/24 06:33 Polychromasia 1+ 05/09/24 04:39 PT 10.5 Seconds (9.0-12.0) 05/06/24 18:57 INR 1.0 (0.9-1.1) 05/06/24 18:57 Specimen Type Arterial 05/09/24 12:32 Sample Site L Radial 05/09/24 12:32 POC pH 7.40 (7.35-7.45) 05/09/24 12:32 POC pCO2 43 mmHg (35-46) 05/09/24 12:32 POC pO2 81 mmHg (80-95) 05/09/24 12:32 POC HCO3 26 ben/L (19-24) H 05/09/24 12:32 POC Total CO2 28 mmol/L (24-31) 05/09/24 12:32 POC Base Excess 2.0 ben/L (-9-1.8) H 05/09/24 12:32 O2 Sat Pulse Oximetry 97 05/09/24 12:32 ABG pH (Temp Correct) 7.392 (7.35-7.45) 05/09/24 12:32 ABG pCO2 (Temp Corrct 44 mmHg (35-46) 05/09/24 12:32 POC ABG pO2 at Pt Temp 85 05/09/24 12:32 POC ABG O2 Sat 96.0 % (90-95) H 05/09/24 12:32 Richard Test Pass 05/09/24 12:32 VBG pH 7.41 (7.36-7.41) 05/06/24 18:57 VBG pCO2 55 mmHg (38-50) H 05/06/24 18:57 VBG pO2 40 mmHg 05/06/24 18:57 VBG HCO3 35 mmol/L 05/06/24 18:57 VBG O2 Saturation 69.1 % 05/06/24 18:57 VBG Base Excess 8.4 mEq/L 05/06/24 18:57 O2 Delivery Device Ventilator 05/09/24 12:32 Vent Mode PSV 05/09/24 12:32 POC FiO2 30 % 05/09/24 12:32 End Tidal CO2 44 05/09/24 12:32 POC Sodium 132 mmol/L (135-144) L 05/09/24 12:32 Sodium 139 mmol/L (136-145) 05/18/24 06:39 POC Potassium 3.8 mmol/L (3.3-5.0) 05/09/24 12:32 Potassium 3.4 mmol/L (3.5-5.1) L 05/18/24 06:39 Chloride 98 mmol/L (98-107) 05/18/24 06:39 Carbon Dioxide 30 mmol/L (21-32) 05/18/24 06:39 Anion Gap 11 (3-11) 05/18/24 06:39 BUN 9 mg/dl (6-23) 05/18/24 06:39 Creatinine 4.80 mg/dl (0.6-1.2) H* D 05/18/24 06:39 Est Cr Clr Drug Dosing 11.0 ml/min 05/18/24 06:39 eGFR 8.83 05/18/24 06:39 BUN/Creatinine Ratio 1.9 (10-20) L 05/18/24 06:39 Glucose 108 mg/dl (70-99(Fasting)) H 05/18/24 06:39 POC Glucose 103 mg/dl (70-99) H 05/18/24 11:35 Lactate 1.1 mmol/L (0.4-2.0) 05/06/24 18:57 Calcium 10.3 mg/dl (8.6-10.3) 05/18/24 06:39 Phosphorus 4.8 mg/dl (2.5-4.9) 05/18/24 06:39 Magnesium 1.9 mg/dl (1.7-2.4) 05/18/24 06:39 Iron 98 mcg/dl (35-150) 05/11/24 04:37 TIBC 211 mcg/dl (250-450) L 05/11/24 04:37 Transferrin 151 mg/dl (200-360) L 05/11/24 04:37 Transferrin % Sat 46 % (15-50) 05/11/24 04:37 Total Bilirubin 0.4 mg/dl (0.2-1.0) 05/09/24 04:39 Direct Bilirubin 0.1 mg/dl (0-0.2) 05/09/24 04:39 AST 17 U/L (13-39) 05/09/24 04:39 ALT 6 U/L (7-52) L 05/09/24 04:39 Alkaline Phosphatase 64 U/L (34-104) 05/09/24 04:39 Troponin I High Sens 57.6 pg/ml (0-14) H* 05/08/24 10:42 B-Natriuretic Peptide 1139 pg/ml (0-100) H 05/06/24 18:57 Total Protein 6.7 gm/dl (6.0-8.3) 05/09/24 04:39 Albumin 3.4 gm/dl (3.4-5.0) 05/09/24 04:39 Globulin 3.7 gm/dl (2.5-4.0) 05/06/24 18:57 Albumin/Globulin Ratio 1.1 (0.9-2) 05/06/24 18:57 Procalcitonin 2.31 ng/ml (0-0.5) H 05/13/24 12:36 TSH 0.906 uIu/ml (0.300-4.500) 05/08/24 08:35 Random Cortisol 9.01 mcg/dl 05/07/24 04:14 Urine Color Dark Yellow 05/06/24 20:45 Urine Appearance Turbid (Clear) A 05/06/24 20:45 Urine pH 8.5 (4.5-7.5) H 05/06/24 20:45 Ur Specific [place] 1.015 (1.000-1.030) 05/06/24 20:45 Urine Protein 3+ (Negative) H 05/06/24 20:45 Urine Glucose (UA) Negative (Negative) 05/06/24 20:45 Urine Ketones Negative (Negative) 05/06/24 20:45 Urine Blood 3+ (Negative) H 05/06/24 20:45 Urine Nitrite Negative (Negative) 05/06/24 20:45 Urine Bilirubin Negative (Negative) 05/06/24 20:45 Urine Urobilinogen Negative (Negative) 05/06/24 20:45 Ur Leukocyte Esterase 1+ (Negative) H 05/06/24 20:45 Urine WBC (Auto) 6-10 /hpf (0-5) H 05/06/24 20:45 Urine RBC (Auto) >20 /hpf (0-2) H 05/06/24 20:45 U Hyaline Cast (Auto) 3-5 /lpf (0-2) H 05/06/24 20:45 U Epithel Cells (Auto) 11-20 /hpf (0-2) H 05/06/24 20:45 Urine Bacteria (Auto) 1+ (None Seen) H 05/06/24 20:45 Nasal Screen MRSA (PCR) Positive (Negative) A 05/06/24 Unknown Stl C. diff Tox B Gene Negative Cdiff Gene (Neg) 05/13/24 Unknown Random Vancomycin 17.5 mcg/ml (10-20) 05/18/24 06:39 SARS-CoV-2 (PCR) NEGATIVE (Negative) 05/06/24 18:57 Influenza Type A (PCR) Positive (Neg) A 05/06/24 18:57 Influenza Type B (PCR) Negative (Neg) 05/06/24 18:57 RSV (RT-PCR) Negative (Neg) 05/06/24 18:[address] 05/06/24 20:59 Exam(s): CT CHEST Without Contrast EXAM: CT Chest Without Intravenous Contrast CLINICAL HISTORY: Rule out LLL infiltrate. TECHNIQUE: Axial computed tomography images of the chest without intravenous contrast. CTDI is 37.33 mGy and DLP is 1023.74 mGy-cm. Automated exposure control was utilized for the study. A dose lowering technique was utilized adhering to the principles of ALARA. COMPARISON: Portable plain radiograph performed earlier; CT chest without contrast 05/23/2022 FINDINGS: Lungs: Accounting for respiratory artifact, there are subtle patchy opacities in the posterior right upper lobe, the superior and medial basal segment of the right lower lobe. Less prominent changes are noted involving the inferior aspect of the left upper lobe and the medial basal segment of the left lower lobe. These are all new from the previous examination. Pleural space: Unremarkable. No pneumothorax. No significant effusion. Heart: Similar to less prominent global cardiomegaly. Chronic coronary artery calcification. No pericardial effusion. Bones/joints: No acute osseous abnormality with stable hypertrophic marginal osteophytes throughout the thoracic spine. Soft tissues: Unremarkable. Vasculature: The thoracic aorta is normal in caliber without aneurysm. Lymph nodes: Unremarkable. No enlarged lymph nodes. Tubes, lines and devices: Nasogastric tube tip cannot be seen but is below the diaphragm. The endotracheal tube (ETT) is in satisfactory position with tip 1.5 cm above the rusty. IMPRESSION: Accounting for respiratory artifact, there are subtle patchy opacities in the posterior right upper lobe, the superior and medial basal segment of the right lower lobe. Less prominent changes are noted involving the inferior aspect of the left upper lobe and the medial basal segment of the left lower lobe. These are all new from the previous examination. Multifocal pneumonia is not excluded. Electronically signed by: Alen Rojo MD 05/07/24 01:04 AM Videofluoroscopic Swallow 05/13/24 10:30 FL video swallow CLINICAL HISTORY: r/o aspiration. TECHNIQUE: Video fluoroscopic evaluation of swallowing was performed in the AP a nd lateral projections by the speech pathology staff. The patient is fed nectar- thick and thin liquid barium, a barium coated wafer, and barium pudding. FLUOROSCOPY TIME: 1.8 minute. COMPARISON: None FINDINGS: There is penetration with liquid. No aspiration seen. IMPRESSION: No aspiration seen. ACT 112: Negative or not required by law. Electronically signed by: Zurdo Sanchez M.D. 05/13/2024 11:35 AM Chest X-Ray 05/17/24 15:57 INDICATION: Cough. TECHNIQUE: Frontal radiograph of the chest. COMPARISON: Radiograph from 05/06/2024. FINDINGS: Cardiomegaly. Low inspiratory depth. Pulmonary vasculature appear within normal limits. Subsegmental atelectasis in the lung bases. No infiltrate, pleural effusion or pneumothorax. No acute osseous abnormality evident. IMPRESSION: No acute cardiopulmonary process. Electronically signed by Barak Caro 05-17-2024 4:39 PM
[2024-05-19 05:57] LABS: Hematocrit (blood only) 35.5 % (37.0-47.0); Hemoglobin 11.6 g/dl (12.0-16.0); Mean Corpuscular Hemoglobin 33.8 pg (25.0-34.0); Mean Corpuscular Hgb Conc 32.7 g/dL (32.0-36.0); Mean Corpuscular Volume 103.5 fL (80.0-100.0); Mean Platelet Volume 10.1 fL (9.4-12.4); Platelet Count 230 K/uL (130-400); RDW Coefficient of Variation 17.3 % (11.5-14.5); RDW Standard Deviation 54.5 fL (36.4-46.3); Red Blood Count 3.43 M/uL (4.20-5.40); White Blood Count 10.24 K/ul (4.8-10.8)
[2024-05-19 06:21] LABS: BUN Creatinine Ratio 2.2 (10-20); Creatinine Clr Calc Pharmacy 7.8 ml/min; Magnesium 1.9 mg/dl (1.7-2.4); Potassium 3.2 mmol/L (3.5-5.1)
--- NOTE | 2024-05-19 11:44 | Nephrology Progress Note ---
Date of Service May 19, 2024 Assessment & Plan Admission and Anticipated Discharge Date Admission Date: May 06, 2024 Subjective Assessment & Plan (1) ESRD (end stage renal disease) on dialysis: Plan: tolerated HD May 10 for 3 L . had 1.5L UF on 05/11, shortened tx. refused HD on 05/12 routine tx. refused 05/13 AM but then allowed tx 05/13 PM and t olerated 1.5L. at 05/15 tx only tolerated 500 mL UF. off of 02NC and on RA late 05/14 afternoon severe illness but improving > extub'd 05/09 after Acute resp failure on ventilator. had pressor needs earlier this stay. since about 05/13 struggle has been to eat/swallow Will try to aim for SBP > 90 on mg before HD, same as OP. She has persistent elevated WBC and had evidence of Sepsis--all cxs negative. but plm edema, multifocal NIETO on CXR/CT and remains hypoxic ABx for superimposed ? PNA on flu A > doxy, ceftriax course completed; on zosyn now persistent hypokalemia--even with 4 K bath. Change to regular diet. Not eating much anyway. CXR and CT shows e/o Pulm edema and pl eff and Multifocal pneumonia. will try to take whatever we can. Already running into challenges with Low BP. But she is on RA so maybe not as bad as the Imaging shows. Plan for 1.5 kilo today with 4 k bath EMLA before HD (2) Acute on chronic hypoxic respiratory failure: Plan: has COPD NO baseline 02 (3) Influenza A: Plan: Had severe presentation with this. Makes everything more difficult including Dialysis. Subjective No new isssues. Not eating anything. K is low. BP drops very easily with dialysis despite midodrine. AVF fine. currently RA. Not very interactive Physical Exam Constitutional: well developed (looks tired) and well nourished; no acute distress Eyes: EOM intact bilaterally ENMT: Ears: + hearing impairment Nose: no external nose abnormality Mouth: + dry oral mucous membranes Respiratory: normal respiratory effort; no cough Auscultation: + diminished lung sounds Cardiovascular: RRR, no murmur, no edema Extremities: + AV fistula ( R arm + t/b) Gastrointestinal (Abdomen): Inspection/Auscultation: normal bowel sounds Percussion/Palpation: abdomen soft; abdomen nontender Musculoskeletal: Extremities: strength 5/5 throughout Skin: no rashes, warm and dry Results & Data Vital Signs (Past 12 Hours) Vital Signs Temp Pulse Pulse Resp BP Pulse Ox O2 Del Method 05/19/24 07:28 36.6 C 74 18 115/74 98 Room Air 05/19/24 02:32 74 20 92 05/19/24 00:00 79 05/18/24 23:53 36.8 C 77 18 122/74 97 Room Air FiO2 05/19/24 07:28 05/19/24 02:32 21 05/19/24 00:00 05/18/24 23:53
--- NOTE | 2024-05-19 14:36 | Hospitalist Progress Note ---
Date of Service May 19, 2024 Assessment & Plan (1) Acute hypoxemic respiratory failure: (2) Acute metabolic encephalopathy: (3) Influenza A: Plan 78 yo F with ESRD on hemodialysis, COPD on 3 L of oxygen, Parkinson's disease, hypothyroidism, type 2 diabetes mellitus, RENÉ, hyperlipidemia, generalized anxiety disorder who was sent from [facility] after she was found to be confused and short of breath. Currently awaiting placmeent Acute on chronic hypoxic respiratory failure Acute metabolic encephalopathy/delirium Influenza A Multifocal pneumonia Chest CT:Accounting for respiratory artifact, there are subtle patchy opacities in the posterior right upper lobe, the superior and medial basal segment of the right lower lobe. Less prominent changes are noted involving the inferior aspect of the left upper lobe and the medial basal segment of the left lower lobe. These are all new from the previous examination. Multifocal pneumonia is not excluded. BioFire positive for influenza A Procalcitonin 2.4 Nasal MRSA positive Blood cultures negative to date Urine cultures negative Sputum culture grew normal rebecca Was in the ICU requiring intubation, Extubated on 05/09/2024, weaned off pressors Treated with Tamiflu-empirically on Zosyn, vancomycin>> transitioned to Rocephin,Doxycycline. Completed abx treatment Reorient frequently to minimize delirium Currently on RA Awaiting placement Elevated troponin, Type II NH Likely demand ischemia secondary to above in setting of end-stage renal disease Less likely ACS --ECHO: EF 50 to 55%. Right ventricle is normal size. Right ventricle systolic pressure is normal. Mild valvular aortic stenosis. Mild to moderate mitral regurgitation. Mild tricuspid regurgitation. Monitor End-stage renal disease Continue dialysis per nephrology Appreciate nephrology input Refused hemodialysis previously but had session on 05/13, 05/15, on 05/17 Chronic conditions: Parkinson's disease; continue on carbidopa/levodopa Hypothyroidism; continue levothyroxine RENÉ on CPAP Orthostatic Hypotension; continue on midodrine Diet: regular, easy to chew CODE STATUS Conditional code DVT Px: Heparin SQ Admission and Anticipated Discharge Date Admission Date: May 06, 2024 Subjective Pt was seen sitting up in bed working on a crossword puzzle Pleasantly confused Review of Systems Review of Systems: All systems reviewed & are unremarkable except as noted in Subjective Physical Exam Physical Exam: General: Alert, not oriented Neuro: No gross deficits HEENT: NC/AT CV: RRR Resp: Breath sounds clear bilaterally, no increased effort of breathing Abdomen: Soft, nontender Extremities: No edema in lower extremities bilaterally. Results & Data Results & Data Vital Signs (Past 12 Hours) Vital Signs Temp Pulse Resp BP Pulse Ox O2 Del Method 05/19/24 07:28 36.6 C 74 18 115/74 98 Room Air
[2024-05-19] MEDS: EPOETIN ALFA 4,000 UNIT/ML VIAL IV ONE (14:40)
[2024-05-20 07:21] VITALS: RESP 19; TEMP 97.9; O2SAT 94
--- NOTE | 2024-05-20 09:29 | Nephrology Progress Note ---
Date of Service May 20, 2024 Assessment & Plan Admission and Anticipated Discharge Date Admission Date: May 06, 2024 Subjective Assessment & Plan (1) ESRD (end stage renal disease) on dialysis: Plan: tolerated HD May 10 for 3 L . had 1.5L UF on 05/11, shortened tx. refused HD on 05/12 routine tx. refused 05/13 AM but then allowed tx 05/13 PM and t olerated 1.5L. at 05/15 tx only tolerated 500 mL UF. off of 02NC and on RA late 05/14 afternoon severe illness but improving > extub'd 05/09 after Acute resp failure on ventilator. had pressor needs earlier this stay. since about 05/13 struggle has been to eat/swallow Will try to aim for SBP > 90 on [id number] mg before HD, same as OP. She has persistent elevated WBC and had evidence of Sepsis--all cxs negative. but plm edema, multifocal NIETO on CXR/CT and remains hypoxic ABx for superimposed ? PNA on flu A > doxy, ceftriax course completed; on zosyn now persistent hypokalemia--even with 4 K bath. Change to regular diet. Not eating much anyway. CXR and CT shows e/o Pulm edema and pl eff and Multifocal pneumonia. will try to take whatever we can. Already running into challenges with Low BP. But she is on RA so maybe not as bad as the Imaging shows. Plan for 1 kilo tomorrow with 4 k bath EMLA before HD labs ordered for tomorrow--CBC and renal panel (2) Acute on chronic hypoxic respiratory failure: Plan: has COPD NO baseline 02 (3) Influenza A: Plan: Had severe presentation with this. Makes everything more difficult including Dialysis. Subjective No new issues. Had dialysis yesterday--only 400 ml UF done. Not eating anything. K is usually low. BP drops very easily with dialysis despite midodrine. AVF fine. currently RA. Not very interactive Physical Exam Constitutional: well developed (looks tired) and well nourished; no acute distress Eyes: EOM intact bilaterally ENMT: Ears: + hearing impairment Nose: no external nose abnormality Mouth: + dry oral mucous membranes Respiratory: normal respiratory effort; no cough Auscultation: + diminished lung sounds Cardiovascular: RRR, no murmur, no edema Extremities: + AV fistula ( R arm + t/b) Gastrointestinal (Abdomen): Inspection/Auscultation: normal bowel sounds Percussion/Palpation: abdomen soft; abdomen nontender Musculoskeletal: Extremities: strength 5/5 throughout Skin: no rashes, warm and dry Results & Data Vital Signs (Past 12 Hours) Vital Signs Temp Pulse Pulse Pulse Resp BP Pulse Ox 05/20/24 07:20 36.6 C 71 19 103/65 94 05/20/24 02:56 70 25 H 98 05/20/24 02:10 36.3 C L 79 18 138/77 99 05/19/24 23:21 87 05/19/24 23:12 81 25 H 94 05/19/24 22:20 36.6 C 80 18 138/70 91 O2 Del Method FiO2 05/20/24 07:20 Room Air 05/20/24 02:56 21 05/20/24 02:10 BiPAP 05/19/24 23:21 05/19/24 23:12 21 05/19/24 22:20 Room Air
[2024-05-20 10:50] LABS: Basophils # (auto) 0.11 K/uL (0.00-0.20); Basophils % (auto) 1.3 %; Eosinophils % (auto) 4.7 %; Hematocrit (blood only) 33.5 % (37.0-47.0); Hemoglobin 11.2 g/dl (12.0-16.0); Immature Granulocytes # (auto) 0.39 K/uL (0.01-0.20); Immature Granulocytes % (auto) 4.6 %; Lymphocytes # (auto) 0.94 K/uL (1.20-3.40); Lymphocytes % (auto) 11.1 %; Mean Corpuscular Hemoglobin 34.8 pg (25.0-34.0); Mean Corpuscular Hgb Conc 33.4 g/dL (32.0-36.0); Mean Platelet Volume 10.4 fL (9.4-12.4); Monocytes # (auto) 0.85 K/uL (0.11-0.59); Neutrophils # (auto) 5.77 K/uL (1.40-6.50); Neutrophils % (auto) 68.3 %; Platelet Count 205 K/uL (130-400); RDW Coefficient of Variation 17.5 % (11.5-14.5); RDW Standard Deviation 56.6 fL (36.4-46.3); Red Blood Count 3.22 M/uL (4.20-5.40); White Blood Count 8.46 K/ul (4.8-10.8)
[2024-05-20 11:05] LABS: Calcium 9.7 mg/dl (8.6-10.3); Magnesium 1.7 mg/dl (1.7-2.4)
[2024-05-20 11:12] LABS: BUN Creatinine Ratio 2.1 (10-20); Creatinine Clr Calc Pharmacy 10.2 ml/min; Phosphorus 2.5 mg/dl (2.5-4.9)
[2024-05-20 11:13] VITALS: BP 118/65
--- NOTE | 2024-05-20 12:01 | Discharge Summary ---
Discharge Summary Date of Service May 20, 2024 Principal Dx & Hospital Course #1 = Principal Diagnosis (1) Acute hypoxemic respiratory failure: (2) Acute metabolic encephalopathy: (3) Influenza A: Plan 78 yo F with ESRD on hemodialysis, COPD on 3 L of oxygen, Parkinson's disease, hypothyroidism, type 2 diabetes mellitus, RENÉ, hyperlipidemia, generalized anxiety disorder who was sent from [facility] facility after she was found to be confused and short of breath. Acute on chronic hypoxic respiratory failure Acute metabolic encephalopathy/delirium Influenza A Multifocal pneumonia Chest CT:Accounting for respiratory artifact, there are subtle patchy opacities in the posterior right upper lobe, the superior and medial basal segment of the right lower lobe. Less prominent changes are noted involving the inferior aspect of the left upper lobe and the medial basal segment of the left lower lobe. These are all new from the previous examination. Multifocal pneumonia is not excluded. BioFire positive for influenza A Procalcitonin 2.4 Nasal MRSA positive Blood cultures negative to date Urine cultures negative Sputum culture grew normal rebecca Was in the ICU requiring intubation, Extubated on 05/09/2024, weaned off pressors Treated with Tamiflu-empirically on Zosyn, vancomycin>> transitioned to Rocephin,Doxycycline. Completed abx treatment while hospitalized. ID was consulted, recommended discontinuation of abx, pt remained stable afterwards. Reorient frequently to minimize delirium Currently on RA, no increased oxygen requirement on discharge. Discharged to [facility] Elevated troponin, Type II CA Likely demand ischemia secondary to above in setting of end-stage renal disease Less likely ACS ECHO: EF 50 to 55%. Right ventricle is normal size. Right ventricle systolic pressure is normal. Mild valvular aortic stenosis. Mild to moderate mitral regurgitation. Mild tricuspid regurgitation. End-stage renal disease Continue dialysis per nephrology Appreciate nephrology recs Refused hemodialysis previously but had session on 05/13, 05/15, on 05/17, 05/19 Chronic conditions: Parkinson's disease; continue on carbidopa/levodopa Hypothyroidism; continue levothyroxine RENÉ on CPAP Orthostatic Hypotension; continue on midodrine Notes For Next Care Provider Nephrology/Dialysis followup Medication Changes From Visit None Admission HPI Per Admitting Provider History obtained from chart review. No history was able to be obtained from the patient as she was intubated and sedated. Past medical history of ESRD on hemodialysis, COPD on 3 L of oxygen, Parkinson's disease, hypothyroidism, type 2 diabetes mellitus, RENÉ, hyperlipidemia, generalized anxiety disorder Patient was sent to the hospital from [facility] after she was found to be confused and short of breath. The staff noticed her to have a fever and she was more lethargic; was found to have influenza A positive. The patient had progressively became lethargic which prompted them to call EMS for transfer to the hospital. On presentation to the ED, she was normotensive, afebrile and was hypoxic to 83%; patient was placed on facemask. Given altered mental status; patient was intubated and mechanically ventilated. Patient is to be admitted to ICU for further management. Admission Exam Per Admitting Provider Constitutional: Sedated, mechanically ventilated. Respiratory: Bilateral mechanical breath sound Cardiovascular: RRR, no murmur, no edema Vessels: no JVD or carotid bruit Chest: normal inspection of chest Abdomen: normal bowel sounds, Musculoskeletal: no cyanosis or clubbing, extremities motor strength 5/5 Skin: no rashes, warm and dry normal turgor Neurologic: Sedated Discharge Exam General: Alert, not oriented Neuro: TE-MOAK HEENT: NC/AT CV: RRR Resp: Breath sounds clear bilaterally, no increased effort of breathing Abdomen: Soft, nontender Extremities: No edema in lower extremities bilaterally. Updated Medication List Medication Instructions Recorded Confirmed Type aspirin 81 mg tablet,delayed 162 mg PO 3XWK 11/15/21 05/06/24 History release atorvastatin 80 mg tablet 80 mg PO QPM 11/15/21 05/06/24 History carbidopa 25 mg-levodopa 100 mg 1 tab PO TIDM 11/15/21 05/06/24 History tablet docusate sodium 100 mg capsule 100 mg PO DAILY 11/15/21 05/06/24 History (Colace) levothyroxine 125 mcg tablet 125 mcg PO QAM 11/15/21 05/06/24 History pregabalin 100 mg capsule 100 mg PO BID 11/15/21 05/06/24 History pantoprazole 20 mg tablet,delayed 20 mg PO BID 05/23/22 05/06/24 History release epinephrine 0.3 mg/0.3 mL 0.3 mg IM DIRECTED PRN 09/05/22 05/06/24 History injection, auto-injector (EpiPen) Anaphylaxis melatonin 10 mg tablet 10 mg PO HS 09/05/22 05/06/24 History ferric citrate 210 mg iron tablet 420 mg PO WM 01/21/23 05/06/24 History (Auryxia) fluticasone furoate 200 1 inh inhalation AMHS 01/21/23 05/06/24 History mcg-vilanterol 25 mcg/dose inhalation powder (Breo Ellipta) cholecalciferol (vitamin D3) 25 25 mcg PO DAILY 10/27/23 05/06/24 History mcg (1,000 unit) capsule vitamin B complex-vitamin C-folic 1 tab PO DAILY 10/27/23 05/06/24 History acid 0.8 mg tablet (Nanci-Samuel) acetaminophen 325 mg tablet 325 - 650 mg PO Q6 PRN MILD-SEVERE 05/06/24 05/06/24 History PAIN acetaminophen 500 mg tablet 500 mg PO QID 3G 05/06/24 05/06/24 History dextromethorphan-guaifenesin 10 2.5 ml PO Q4 PRN Cough 05/06/24 05/06/24 History mg-200 mg/5 mL oral liquid diclofenac sodium 1 % topical gel 2 g topical QID 05/06/24 05/06/24 History escitalopram oxalate 10 mg tablet 10 mg PO QAM 05/06/24 05/06/24 History ferric citrate 210 mg iron tablet 210 mg PO . NEEDED PRN WITH 05/06/24 05/06/24 History (Auryxia) SNACKS guaifenesin 100 mg/5 mL oral 200 mg PO Q4H PRN Cough 05/06/24 05/06/24 History liquid (Siltussin SA) ipratropium 0.5 mg-albuterol 3 mg 3 ml inhalation Q4 PRN Wheezing 05/06/24 05/06/24 History (2.5 mg base)/3 mL nebulization soln ipratropium 0.5 mg-albuterol 3 mg 3 ml inhalation TID 05/06/24 05/06/24 History (2.5 mg base)/3 mL nebulization soln lidocaine-prilocaine 2.5 %-2.5 % 1 applic topical 3XWK 05/06/24 05/06/24 History topical cream midodrine 10 mg tablet 5 mg PO 3XWK 05/06/24 05/06/24 History midodrine 5 mg tablet 5 mg PO UD 05/06/24 05/06/24 History ondansetron HCl 4 mg tablet 4 mg PO Q6H PRN Nausea And Vomiting 05/06/24 05/06/24 History sertraline 25 mg tablet 25 mg PO UD 05/06/24 05/06/24 History sertraline 50 mg tablet 50 mg PO QAM 05/06/24 05/06/24 History Hospital Stay Data Consultations 05/06/24 20:44 Consult Transfer Machine Operator Stat 05/06/24 20:45 ED Decision to Admit Stat 05/06/24 21:18 Consult Nephrology Routine 05/13/24 12:08 Consult Gastroenterology Routine 05/14/24 07:59 Consult Infectious Diseases Routine Diagnostic Imagining Performed 05/06/24 20:59 CT chest diagnostic wo con Stat 05/13/24 10:30 Fluoro video [FL video swallow] Routine Chest X-Ray 05/06/24 19:05 EXAM: Radiograph of the Chest 1 View INDICATION: Dyspnea. TECHNIQUE: Frontal view of the chest. COMPARISON: 05/23/2022 FINDINGS: Lungs and pleural spaces: Shallow inspiration with carotid vasculature. Suspect superimposed vascular congestion. Question infiltrate or nodule in the left lung base measuring about 3.6 cm diameter. Heart: Stable large cardiac shadow. Mediastinum: Normal contour. Bones/joints: No fracture, erosion or dislocation. Soft tissues: No abnormality noted. No radiopaque foreign body noted. Upper abdomen: No abnormality noted. IMPRESSION: Limited expiratory exam with probable pulmonary vascular congestion. There is an opacity projecting over the medial left lung base which could be a calcified mitral annulus or pulmonary infiltrate/nodule. [address] recommended depending on the clinical circumstances. ACT 112: Negative or not required by law. Electronically signed by Hyun Valderrama 05-06-2024 7:[address] 05/06/24 20:59 Exam(s): CT CHEST Without Contrast EXAM: CT Chest Without Intravenous Contrast CLINICAL HISTORY: Rule out LLL infiltrate. TECHNIQUE: Axial computed tomography images of the chest without intravenous contrast. CTDI is 37.33 mGy and DLP is 1023.74 mGy-cm. Automated exposure control was utilized for the study. A dose lowering technique was utilized adhering to the principles of ALARA. COMPARISON: Portable plain radiograph performed earlier; CT chest without contrast 05/23/2022 FINDINGS: Lungs: Accounting for respiratory artifact, there are subtle patchy opacities in the posterior right upper lobe, the superior and medial basal segment of the right lower lobe. Less prominent changes are noted involving the inferior aspect of the left upper lobe and the medial basal segment of the left lower lobe. These are all new from the previous examination. Pleural space: Unremarkable. No pneumothorax. No significant effusion. Heart: Similar to less prominent global cardiomegaly. Chronic coronary artery calcification. No pericardial effusion. Bones/joints: No acute osseous abnormality with stable hypertrophic marginal osteophytes throughout the thoracic spine. Soft tissues: Unremarkable. Vasculature: The thoracic aorta is normal in caliber without aneurysm. Lymph nodes: Unremarkable. No enlarged lymph nodes. Tubes, lines and devices: Nasogastric tube tip cannot be seen but is below the diaphragm. The endotracheal tube (ETT) is in satisfactory position with tip 1.5 cm above the rusty. IMPRESSION: Accounting for respiratory artifact, there are subtle patchy opacities in the posterior right upper lobe, the superior and medial basal segment of the right lower lobe. Less prominent changes are noted involving the inferior aspect of the left upper lobe and the medial basal segment of the left lower lobe. These are all new from the previous examination. Multifocal pneumonia is not excluded. Electronically signed by: Alen Rojo MD 05/07/24 01:04 AM Chest X-Ray 05/06/24 21:08 Exam(s): XR CXR 1 VIEW EXAM: XR Chest, 1 View CLINICAL HISTORY: Reason for exam: post inutbation. TECHNIQUE: Frontal view of the chest. COMPARISON: Prior chest x-ray from FINDINGS: There is an endotracheal tube in place approximately 13 mm above the rusty. There is an OG tube overlying the esophagus extending into the stomach with the distal tip of the range. Lungs: Moderate peribronchial thickening of the central bronchi with increased interstitial opacities throughout the lungs. No consolidation. Pleural space: Unremarkable. No pneumothorax. Heart: Moderate cardiomegaly. Mediastinum: Unremarkable. Normal mediastinal contour. Bones/joints: Unremarkable. No acute fracture. IMPRESSION: Endotracheal tube in place approximately 13 mm above the rusty. Recommend pulling the endotracheal tube back 2-3 cm. Electronically signed by: Isidra Meng MD 05/07/24 00:12 AM Chest X-Ray 05/07/24 07:00 EXAM: XR chest 1V portable CLINICAL HISTORY: Follow up CXR. TECHNIQUE: X-ray chest was performed in 1 view: PA projection. COMPARISON: Prior CR dated 05/06/2024. FINDINGS: The endotracheal tube is seen in place with its tip about 3.0 cm above the rusty. NG tube is seen, its distal tip is not visualized however it is seen below the diaphragm. Prominent bilateral hilar with increased bronchovascular markings and possible cephalization. A small opacity in the left perihilar region. Blunting of the bilateral costophrenic angles. Patchy haziness in the bilateral lung anand predominantly in the lower zones. The apparent widening of the mediastinum. Mild to moderate cardiomegaly. Opacity in the cardiophrenic angle represents the epicardial fat pad. IMPRESSION: 1. The endotracheal tube is seen in place with its tip about 3.0 cm above the rusty. Interval new finding. 2. NG tube is seen, but its distal tip is not visualized however it is seen below the diaphragm. Interval new finding. 3. The imaging findings are likely due to the pulmonary edema with bilateral pleural effusion however possibility of infection cannot be ruled out. Electronically signed by Cesar Mancuso 05-07-2024 07:38 AM Chest X-Ray 05/08/24 08:13 EXAM: Radiograph of the Chest 1 View INDICATION: Assess lines. TECHNIQUE: Frontal view of the chest. COMPARISON: 05/07/2024 FINDINGS: Lungs and pleural spaces: Significantly improved basilar ventilation with mild residual linear atelectasis. Slight increased vascular congestion. Heart: Stable large cardiac shadow. Mediastinum: Normal contour. Bones/joints: No fracture, erosion or dislocation. Soft tissues: No abnormality noted. No radiopaque foreign body noted. Vasculature: Radiopaque tip of the intra-aortic balloon pump projects in the proximal descending aorta. Tubes, lines and devices: The endotracheal tube terminates 3.7 cm above the rusty. Nasogastric tube below the diaphragm. The tip is not included in the image field. Upper abdomen: No abnormality noted. IMPRESSION: 1. Slight increased vascular congestion. 2. Improved basilar ventilation with residual mild atelectasis. 3. Lines and tubes as above. ACT 112: Negative or not required by law. Electronically signed by Hyun Valderrama 05-08-2024 09:02 AM Videofluoroscopic Swallow 05/13/24 10:30 FL video swallow CLINICAL HISTORY: r/o aspiration. TECHNIQUE: Video fluoroscopic evaluation of swallowing was performed in the AP and lateral projections by the speech pathology staff. The patient is fed nectar-thick and thin liquid barium, a barium coated wafer, and barium pudding. FLUOROSCOPY TIME: 1.8 minute. COMPARISON: None FINDINGS: There is penetration with liquid. No aspiration seen. IMPRESSION: No aspiration seen. ACT 112: Negative or not required by law. Electronically signed by: Zurdo Sanchez M.D. 05/13/2024 11:35 AM Chest X-Ray 05/13/24 12:11 XR chest 1V portable CLINICAL HISTORY: leukocytosuis,? aspiration COMPARISON STUDY: 05/08/2024 FINDINGS: There is interval extubation. There is stable cardiomegaly without pulmonary vascular congestion. Inspiration is shallow. There is stable mild stranding at the left lung base. No new consolidation or pleural effusion. No pneumothorax. IMPRESSION: Interval extubation. Otherwise stable. ACT 112: Negative or not required by law. Electronically signed by: Zurdo Sanchez M.D. 05/13/2024 1:24 PM Chest X-Ray 05/17/24 15:57 INDICATION: Cough. TECHNIQUE: Frontal radiograph of the chest. COMPARISON: Radiograph from 05/06/2024. FINDINGS: Cardiomegaly. Low inspiratory depth. Pulmonary vasculature appear within normal limits. Subsegmental atelectasis in the lung bases. No infiltrate, pleural effusion or pneumothorax. No acute osseous abnormality evident. IMPRESSION: No acute cardiopulmonary process. Electronically signed by Barak Caro 05-17-2024 4:39 PM Discharge Instructions Given to Patient (Per Discharging Provider) Kami, You were admitted and treated for an acute infection that caused you to become even more confused than usual. Your symptoms improved. You completed treatment in the hospital. You are being discharged. Please continue with your dialysis sessions as needed. Please keep close follow up with your primary care provider after discharge. Please do not hesitate to come back to the emergency room if your symptoms worsen or return. It was a pleasure taking care of you while you were here. Total Time Total Time Spent Total Time Spent (In Minutes): 60
[2024-05-20 12:23] VITALS: PULSE 71
== END 2024-05-20 12:57 | DRG 871 ==
LOC: ED 18:49 → SUATTDRO 21:11 → 1E 21:11 → 2S 05-12 18:19

== ENCOUNTER 2024-05-21 11:09 | Inpatient (IN) ==
[2024-05-21 11:54] LABS: Basophils # (auto) 0.12 K/uL (0.00-0.20); Basophils % (auto) 1.3 %; Eosinophils % (auto) 3.3 %; Hematocrit (blood only) 33.8 % (37.0-47.0); Hemoglobin 11.4 g/dl (12.0-16.0); Immature Granulocytes # (auto) 0.42 K/uL (0.01-0.20); Immature Granulocytes % (auto) 4.6 %; Mean Corpuscular Hgb Conc 33.7 g/dL (32.0-36.0); Mean Corpuscular Volume 103.7 fL (80.0-100.0); Mean Platelet Volume 11.2 fL (9.4-12.4); Monocytes # (auto) 1.19 K/uL (0.11-0.59); Neutrophils # (auto) 6.02 K/uL (1.40-6.50); Neutrophils % (auto) 65.8 %; Platelet Count 232 K/uL (130-400); RDW Coefficient of Variation 17.3 % (11.5-14.5); RDW Standard Deviation 60.9 fL (36.4-46.3); Red Blood Count 3.26 M/uL (4.20-5.40); White Blood Count 9.15 K/ul (4.8-10.8)
--- NOTE | 2024-05-21 12:03 | XRay Report ---
XR chest 1V portable CLINICAL HISTORY: Chest pain, nonspecific COMPARISON STUDY: 05/17/2024 FINDINGS: Stable prominent cardiomegaly with mild pulmonary vascular congestion. There is mild pulmon jassi interstitial prominence. No lobar consolidation or pleural effusion. No pneumothorax. IMPRESSION: CHF. ACT 112: Negative or not required by law. Electronically signed by: Zurdo Sanchez M.D. 05/21/2024 12:02 PM
[2024-05-21 12:15] LABS: Albumin Globulin Ratio 1.1 (0.9-2); BUN Creatinine Ratio 2.1 (10-20); Bilirubin,Total 0.5 mg/dl (0.2-1.0); Calcium 9.3 mg/dl (8.6-10.3); Globulin 3.5 gm/dl (2.5-4.0); Potassium 2.8 mmol/L (3.5-5.1); Total Protein 7.5 gm/dl (6.0-8.3)
[2024-05-21 12:19] LABS: Partial Thromboplastin Ratio 0.9; Partial Thromboplastin Time 23 Seconds (21-31); Prothrombin Time 10.4 Seconds (9.0-12.0)
--- NOTE | 2024-05-21 12:19 | Emergency Department Note ---
Impression & Plan Confusion, End-stage renal disease (ESRD) ED Provider Note Diagnosis: Altered mental status, chest pain, hypoxia Disposition: Admission CHIEF COMPLAINT: Altered mental status HPI: Patient is a 78-year-old female presenting from dialysis with worsening mental status and hypoxia. Patient reportedly had an hour left of her treatment when she developed chest pain. Patient does not use oxygen at baseline and room air saturation 88 to 90%. Patient having change in mental status per staff. Patient hard to arouse but when you do wake her up she is able to answer questions appropriately. Patient is not have any focal deficits. PAST MEDICAL HISTORY: See Below PAST SURGICAL HISTORY: See Below SOCIAL HISTORY: See Below HOME MEDICATIONS: See Below ALLERGIES: See Below VITALS: See Below PHYSICAL EXAMINATION: GENERAL: Moderate distress EYE EXAM: Normal conjunctiva. OROPHARYNX: Moist mucus membranes. Grossly normal dentition. NECK: Supple, LUNGS: Clear to auscultation. Normal chest wall mechanics. HEART: NSR ABDOMEN: Abdomen soft, non-tender, BACK: No CVA TTP. SKIN: No rashes and no bruising. UPPER EXTREMITIES: Upper extremities are grossly normal LOWER EXTREMITIES: Grossly normal, no edema. NEURO EXAM: Alert to voice and painful stimuli, patient moves all fours without focal deficit PSYCH: Cooperative MEDICAL DECISION MAKING: History obtained from: Patient, EMS ER Course: Patient 78-year-old female presenting with reported episode of chest pain during dialysis and they had to stop the treatment and send her to our facility. Patient having confusion. Patient on arrival does wear hearing aids but if you her name will open her eyes and respond slowly. Patient moving all fours without any focal neurologic deficits. Patient's blood pressure about 100 systolic. Patient's EKG shows left bundle branch block but no change from prior. Patient has mild troponin elevation which I suspect is from her end- stage renal disease. Patient hypokalemic and IV potassium was given. Patient requiring 2 L nasal cannula which is not her baseline. Patient uses CPAP at night and due to her sleeping currently we placed her on her normal CPAP. Patient's case discussed with hospital service who accepts her for further treatment and evaluation. Patient due to the confusion did have a CT scan of her head performed which was negative for intracranial hemorrhage. Labs (independently interpreted) are significant for: Elevated troponin, hypokalemia Imaging results (independently interpreted): Chest x-ray no pneumonia found EKG interpretation (independently interpreted): Sinus rhythm no ST segment elevation or depression PVCs present left bundle branch block Medications given: Potassium supplementation Consultants: Hospitalist Chronic conditions affecting care: End-stage renal disease Triage Nursing notes reviewed and agree them. Vital Signs: reviewed and remarkable for: no significant abnormalities Past Med/Surg History Problem List (Updated 05/21/24 @ 15:46 by Jacobo Mcclendon MD) Volume overload Chest pain Dysphagia Acute encephalopathy Influenza A Pneumonia Acute UTI (urinary tract infection) (Acute) Leukocytosis (Acute) Elevated procalcitonin (Acute) Endotracheally intubated (Acute) Elevated brain natriuretic peptide (BNP) level (Acute) Pulmonary vascular congestion (Acute) Influenza A (Acute) Elevated troponin (Acute) Acute confusion (Acute) Sepsis (Acute) Acute hypoxemic respiratory failure (Acute) Pulmonary edema (Acute) Acute respiratory failure with hypoxia RENÉ (obstructive sleep apnea) Diet-controlled type 2 diabetes mellitus Acute on chronic hypoxic respiratory failure (Acute) Chronic hypoxemic respiratory failure Noncompliance with renal dialysis Acute metabolic encephalopathy Hypotension (Acute) Confusion (Acute) Hypothyroidism Sinus bradycardia Hypotension Hemodialysis status (Acute) Anemia (Acute) LBBB (left bundle branch block) (Acute) DM type 2 (diabetes mellitus, type 2) Elevated troponin (Acute) Hypertension Toxic metabolic encephalopathy Dialysis disequilibrium syndrome (Acute) Acute on chronic respiratory failure with hypoxemia Leukocytosis LBBB (left bundle branch block) (Acute) ESRD (end stage renal disease) on dialysis (Acute) Anemia of chronic disease End-stage renal disease (ESRD) (Acute) Generalized weakness Parkinson disease Medical History ESRD on hemodialysis Thickened endometrium Acute ischemic stroke NSTEMI (non-ST elevated myocardial infarction) Elevated troponin I level AV fistula R arm Limb alert care status R arm History of recent hospitalization d/c 09/09/22>per medical record, pt sent to ER at [facility] following dialysis for reddened sores on her buttocks. Admitting dx was enterococcus UTI, decubitus ulcer and sacral cellulitis. Difficult intravenous access Black stools Mobility impaired pt non compliant with hx pt treatments / PT IS IN WHEELCHAIR/TOTAL ASSIST Poor short term memory BEAVER (hard of hearing) COPD (chronic obstructive pulmonary disease) no medications for currently History of stroke 2020- pts spouse poor historian pt denies hx stroke History of anesthesia reaction "hard time waking up" Hx: recurrent pneumonia History of COVID-19 ? early 2021- mild congestion, no hospitalization, no current issues Non-ST elevation VT (NSTEMI) pt spouse not sure/ mild ? remembers something mentioned in hx/ ? details ESRD (end stage renal disease) on dialysis tues, thur & sat (prue) Aspiration pneumonia HX Morbid obesity Rheumatoid arthritis ? current status/no meds for Chronic diastolic heart failure EF 50% on 01/2020 echo RACHEL (iron deficiency anemia) Subdural hematoma hx fall 2019 - tx to [facility]/no surgical intervention RENÉ on CPAP Depression Meniere's disease Generalized anxiety disorder Dyslipidemia Restless leg syndrome Diabetes mellitus, type II hx / NO MEDS HTN (hypertension) Surgical History Hx of arteriovenostomy for renal dialysis right arm History of tubal ligation History of carpal tunnel surgery B/L History of orthopedic surgery " bilat heel surgery" H/O sinus surgery Hx of total knee arthroplasty B/L Family History Other AAA (abdominal aortic aneurysm) Diabetes Family history non-contributory Hypertension Myotonic dystrophy Social History Smoking Status: Former smoker Tobacco Type: Cigarettes Cigarettes Per Day: 0.25ppd; Second Hand Exposure: No; Do You Dip or Chew Tobacco: No; Hx Alcohol Use: No Hx Substance Use: No Preferred Language: Czech Communication Ability: Impaired Communication Ability Comment: intubated Faculty Member Required: No Beliefs That Will Affect Care: None marital status: Current Living Situation: Halfway Current Living Situation Comment: [facility] Feels Safe at Home: Yes Assistive Devices: Mechanical Lift, Oxygen - Continuous and Wheelchair Allergies Allergies Allergy/AdvReac Type Severity Reaction Status Date / Time No Known Allergies Allergy Verified 05/06/24 20:04 Home Meds Home Medications Medication Instructions Recorded Confirmed aspirin 81 mg tablet,delayed 162 mg PO 3XWK 11/15/21 05/06/24 release atorvastatin 80 mg tablet 80 mg PO QPM 11/15/21 05/06/24 carbidopa 25 mg-levodopa 100 mg 1 tab PO TIDM 11/15/21 05/06/24 tablet docusate sodium 100 mg capsule 100 mg PO DAILY 11/15/21 05/06/24 (Colace) levothyroxine 125 mcg tablet 125 mcg PO QAM 11/15/21 05/06/24 pregabalin 100 mg capsule 100 mg PO BID 11/15/21 05/06/24 pantoprazole 20 mg tablet,delayed 20 mg PO BID 05/23/22 05/06/24 release epinephrine 0.3 mg/0.3 mL 0.3 mg IM DIRECTED PRN 09/05/22 05/06/24 injection, auto-injector (EpiPen) Anaphylaxis melatonin 10 mg tablet 10 mg PO HS 09/05/22 05/06/24 ferric citrate 210 mg iron tablet 420 mg PO WM 01/21/23 05/06/24 (Auryxia) fluticasone furoate 200 1 inh inhalation AMHS 01/21/23 05/06/24 mcg-vilanterol 25 mcg/dose inhalation powder (Breo Ellipta) cholecalciferol (vitamin D3) 25 25 mcg PO DAILY 10/27/23 05/06/24 mcg (1,000 unit) capsule vitamin B complex-vitamin C-folic 1 tab PO DAILY 10/27/23 05/06/24 acid 0.8 mg tablet (Nanci-Samuel) acetaminophen 325 mg tablet 325 - 650 mg PO Q6 PRN MILD-SEVERE 05/06/24 05/06/24 PAIN acetaminophen 500 mg tablet 500 mg PO QID 3G 05/06/24 05/06/24 dextromethorphan-guaifenesin 10 2.5 ml PO Q4 PRN Cough 05/06/24 05/06/24 mg-200 mg/5 mL oral liquid diclofenac sodium 1 % topical gel 2 g topical QID 05/06/24 05/06/24 escitalopram oxalate 10 mg tablet 10 mg PO QAM 05/06/24 05/06/24 ferric citrate 210 mg iron tablet 210 mg PO . NEEDED PRN WITH 05/06/24 05/06/24 (Auryxia) SNACKS guaifenesin 100 mg/5 mL oral 200 mg PO Q4H PRN Cough 05/06/24 05/06/24 liquid (Siltussin SA) ipratropium 0.5 mg-albuterol 3 mg 3 ml inhalation Q4 PRN Wheezing 05/06/24 05/06/24 (2.5 mg base)/3 mL nebulization soln ipratropium 0.5 mg-albuterol 3 mg 3 ml inhalation TID 05/06/24 05/06/24 (2.5 mg base)/3 mL nebulization soln lidocaine-prilocaine 2.5 %-2.5 % 1 applic topical 3XWK 05/06/24 05/06/24 topical cream midodrine 10 mg tablet 5 mg PO 3XWK 05/06/24 05/06/24 midodrine 5 mg tablet 5 mg PO UD 05/06/24 05/06/24 ondansetron HCl 4 mg tablet 4 mg PO Q6H PRN Nausea And Vomiting 05/06/24 05/06/24 sertraline 25 mg tablet 25 mg PO UD 05/06/24 05/06/24 sertraline 50 mg tablet 50 mg PO QAM 05/06/24 05/06/24 Results & Data (ED) Vital Signs Vital Signs - 24 hr 05/21/24 11:17 05/21/24 11:21 05/21/24 11:23 Temperature 35.9 C L Temperature Source Oral Pulse Rate 66 67 Pulse Rate [Apical] Pulse Rate from SpO2 Sensor 60 Respiratory Rate 20 20 Respiratory Effort / Characteristics Respiratory Depth Respiratory Pattern Blood Pressure 115/47 L 115/47 L Blood Pressure [Left Arm] Blood Pressure Mean 67 69 Blood Pressure Mean [Left Arm] Pulse Oximetry 95 94 Oxygen Delivery Method Room Air Oxygen Flow Rate 2 Sepsis Recent Fever Within 48 Hours No Sepsis New/Unexplained Change in Mental Status N/A Sepsis Action Taken by Nursing No Action Required 05/21/24 11:24 05/21/24 11:30 05/21/24 11:30 Temperature Temperature Source Pulse Rate 67 Pulse Rate [Apical] Pulse Rate from SpO2 Sensor 56 L Respiratory Rate 20 Respiratory Effort / Characteristics Respiratory Depth Respiratory Pattern Blood Pressure 108/65 108/65 Blood Pressure [Left Arm] Blood Pressure Mean 88 88 Blood Pressure Mean [Left Arm] Pulse Oximetry 94 Oxygen Delivery Method Oxygen Flow Rate 2 Sepsis Recent Fever Within 48 Hours Sepsis New/Unexplained Change in Mental Status Sepsis Action Taken by Nursing 05/21/24 11:32 05/21/24 11:32 05/21/24 11:34 Temperature 36.0 C L Temperature Source Oral Pulse Rate Pulse Rate [Apical] 67 Pulse Rate from SpO2 Sensor Respiratory Rate 20 Respiratory Effort / Characteristics Respiratory Depth Respiratory Pattern Blood Pressure Blood Pressure [Left Arm] 115/47 L Blood Pressure Mean Blood Pressure Mean [Left Arm] 69 Pulse Oximetry 94 94 88 L Oxygen Delivery Method Room Air Room Air Room Air Oxygen Flow Rate Sepsis Recent Fever Within 48 Hours Sepsis New/Unexplained Change in Mental Status Sepsis Action Taken by Nursing 05/21/24 11:34 05/21/24 11:57 05/21/24 11:59 Temperature Temperature Source Pulse Rate 67 63 64 Pulse Rate [Apical] Pulse Rate from SpO2 Sensor 62 Respiratory Rate 20 18 Respiratory Effort / Characteristics Respiratory Depth Respiratory Pattern Blood Pressure Blood Pressure [Left Arm] Blood Pressure Mean Blood Pressure Mean [Left Arm] Pulse Oximetry 88 L 99 Oxygen Delivery Method Room Air Oxygen Flow Rate 2 Sepsis Recent Fever Within 48 Hours Sepsis New/Unexplained Change in Mental Status Sepsis Action Taken by Nursing 05/21/24 12:00 05/21/24 12:01 05/21/24 12:30 Temperature Temperature Source Pulse Rate 61 71 Pulse Rate [Apical] Pulse Rate from SpO2 Sensor 63 71 Respiratory Rate 18 18 Respiratory Effort / Characteristics Respiratory Depth Respiratory Pattern Blood Pressure 119/65 Blood Pressure [Left Arm] Blood Pressure Mean 73 Blood Pressure Mean [Left Arm] Pulse Oximetry 100 100 Oxygen Delivery Method Oxygen Flow Rate 2 2 Sepsis Recent Fever Within 48 Hours Sepsis New/Unexplained Change in Mental Status Sepsis Action Taken by Nursing 05/21/24 12:51 05/21/24 13:00 05/21/24 13:03 Temperature Temperature Source Pulse Rate 73 68 Pulse Rate [Apical] Pulse Rate from SpO2 Sensor 73 Respiratory Rate 24 16 Respiratory Effort / Characteristics Non-Labored Spontaneous Respiratory Depth Normal Respiratory Pattern Regular Blood Pressure 125/70 Blood Pressure [Left Arm] Blood Pressure Mean 79 Blood Pressure Mean [Left Arm] Pulse Oximetry 100 100 Oxygen Delivery Method Oxygen Flow Rate 2 Sepsis Recent Fever Within 48 Hours Sepsis New/Unexplained Change in Mental Status Sepsis Action Taken by Nursing 05/21/24 13:03 05/21/24 13:33 05/21/24 13:36 Temperature Temperature Source Pulse Rate 70 70 64 Pulse Rate [Apical] Pulse Rate from SpO2 Sensor 71 66 64 Respiratory Rate 20 19 17 Respiratory Effort / Characteristics Respiratory Depth Respiratory Pattern Blood Pressure Blood Pressure [Left Arm] Blood Pressure Mean Blood Pressure Mean [Left Arm] Pulse Oximetry 100 100 96 Oxygen Delivery Method CPAP CPAP Oxygen Flow Rate 2 Sepsis Recent Fever Within 48 Hours Sepsis New/Unexplained Change in Mental Status Sepsis Action Taken by Nursing 05/21/24 13:38 05/21/24 14:06 Temperature Temperature Source Pulse Rate 69 Pulse Rate [Apical] Pulse Rate from SpO2 Sensor 69 Respiratory Rate 17 Respiratory Effort / Characteristics Respiratory Depth Respiratory Pattern Blood Pressure 98/58 L Blood Pressure [Left Arm] Blood Pressure Mean 64 Blood Pressure Mean [Left Arm] Pulse Oximetry 100 Oxygen Delivery Method CPAP Oxygen Flow Rate Sepsis Recent Fever Within 48 Hours Sepsis New/Unexplained Change in Mental Status Sepsis Action Taken by Nursing Laboratory Data 05/21/24 11:25 05/21/24 11:25 Lab Results 05/21/24 05/21/24 05/21/24 Range/Units 11:25 12:25 12:37 WBC 9.15 (4.8-10.8) K/ul RBC 3.26 L (4.20-5.40) M/uL Hgb 11.4 L (12.0-16.0) g/dl POC Hgb 11.6 L (12.0-16.0) g/dl Hct 33.8 L (37.0-47.0) % POC Hct 34 L (37-47) % MCV 103.7 H (80.0-100.0) fL MCH 35.0 H (25.0-34.0) pg MCHC 33.7 (32.0-36.0) g/dL RDW Std Deviation 60.9 H (36.4-46.3) fL RDW Coeff of Bhavin 17.3 H (11.5-14.5) % Plt Count 232 (130-400) K/uL MPV 11.2 (9.4-12.4) fL Immature Gran % (Auto) 4.6 % Neut % (Auto) 65.8 % Lymph % (Auto) 12.0 % Caldwell % (Auto) 13.0 % Eos % (Auto) 3.3 % Baso % (Auto) 1.3 % Neut # (Auto) 6.02 (1.40-6.50) K/uL Lymph # (Auto) 1.10 L (1.20-3.40) K/uL Caldwell # (Auto) 1.19 H (0.11-0.59) K/uL Eos # (Auto) 0.30 (0.00-0.50) K/uL Baso # (Auto) 0.12 (0.00-0.20) K/uL Immature Gran # (Auto) 0.42 H (0.01-0.20) K/uL PT 10.4 (9.0-12.0) Seconds INR 1.0 (0.9-1.1) APTT 23 (21-31) Seconds PTT Ratio 0.9 Specimen Type Sample Site Patient Temperature POC pH 7.42 (7.35-7.45) POC pCO2 50 H (35-46) mmHg POC pO2 52 L (80-95) mmHg POC HCO3 33 H (19-24) ben/L POC Total CO2 34 H (24-31) mmol/L POC Base Excess 8.0 H (-9-1.8) ben/L O2 Sat Pulse Oximetry ABG pH (Temp Correct) ABG pCO2 (Temp Corrct POC ABG pO2 at Pt Temp POC ABG O2 Sat 87.0 L (90-95) % Richard Test Set Respiration Rate O2 Delivery Device POC O2 Rate Minute Ventilation Spont Minute Ventilation Vent Mode Vent Setting Spontaneous Rate FiO2 (liters per min) POC FiO2 Tidal Volume Spontaneous Tidal Vol End Tidal CO2 PEEP High PEEP Setting Low PEEP Setting Pressure Support POC Pressure Suppt Pressure Support Vent Pressure High Time High Time Low EPAP IPAP POC Sodium 137 (135-144) mmol/L Sodium 139 (136-145) mmol/L POC Potassium 2.7 L (3.3-5.0) mmol/L Potassium 2.8 L (3.5-5.1) mmol/L Chloride 96 L (98-107) mmol/L Carbon Dioxide 34 H (21-32) mmol/L Anion Gap 9 (3-11) BUN 7 (6-23) mg/dl Creatinine 3.41 H D (0.6-1.2) mg/dl Est Cr Clr Drug Dosing 15.0 ml/min eGFR 13.31 BUN/Creatinine Ratio 2.1 L (10-20) Glucose 121 H (70-99(Fasting)) mg/dl Calcium 9.3 (8.6-10.3) mg/dl Total Bilirubin 0.5 (0.2-1.0) mg/dl AST 30 (13-39) U/L ALT 10 (7-52) U/L Alkaline Phosphatase 76 (34-104) U/L Troponin I High Sens 40.7 H (0-14) pg/ml B-Natriuretic Peptide (0-100) pg/ml Total Protein 7.5 (6.0-8.3) gm/dl Albumin 4.0 (3.4-5.0) gm/dl Globulin 3.5 (2.5-4.0) gm/dl Albumin/Globulin Ratio 1.1 (0.9-2) Adenovirus (PCR) Not Detected (NotDetected) B. pertussis DNA (PCR) Not Detected (NotDetected) B.parapertussis DNA PCR Not Detected (NotDetected) C. pneumoniae DNA (PCR) Not Detected (NotDetected) Coronavirus OC43 (PCR) Not Detected (NotDetected) Coronavirus HKU1 (PCR) Not Detected (NotDetected) Coronavirus 229E (PCR) Not Detected (NotDetected) SARS-CoV-2 (PCR) Not Detected (NotDetected) Coronavirus NL63 (PCR) Not Detected (NotDetected) Human Metapneumovir PCR Not Detected (NotDetected) Influenza Type A (PCR) Not Detected (NotDetected) Influenza Type B (PCR) Not Detected (NotDetected) M. pneumoniae (PCR) Not Detected (NotDetected) Parainfluenza 1 (PCR) Not Detected (NotDetected) Parainfluenza 2 (PCR) Not Detected (NotDetected) Parainfluenza 3 (PCR) Not Detected (NotDetected) Parainfluenza 4 (PCR) Not Detected (NotDetected) RSV (PCR) Not Detected (NotDetected) Entero/Rhino (PCR) Not Detected (NotDetected) 05/21/24 05/21/24 Range/Units 12:51 14:08 WBC (4.8-10.8) K/ul RBC (4.20-5.40) M/uL Hgb (12.0-16.0) g/dl POC Hgb Cancelled (12.0-16.0) g/dl Hct (37.0-47.0) % POC Hct Cancelled (37-47) % MCV (80.0-100.0) fL MCH (25.0-34.0) pg MCHC (32.0-36.0) g/dL RDW Std Deviation (36.4-46.3) fL RDW Coeff of Bhavin (11.5-14.5) % Plt Count (130-400) K/uL MPV (9.4-12.4) fL Immature Gran % (Auto) % Neut % (Auto) % Lymph % (Auto) % Caldwell % (Auto) % Eos % (Auto) % Baso % (Auto) % Neut # (Auto) (1.40-6.50) K/uL Lymph # (Auto) (1.20-3.40) K/uL Caldwell # (Auto) (0.11-0.59) K/uL Eos # (Auto) (0.00-0.50) K/uL Baso # (Auto) (0.00-0.20) K/uL Immature Gran # (Auto) (0.01-0.20) K/uL PT (9.0-12.0) Seconds INR (0.9-1.1) APTT (21-31) Seconds PTT Ratio Specimen Type Cancelled Sample Site Cancelled Patient Temperature Cancelled POC pH Cancelled (7.35-7.45) POC pCO2 Cancelled (35-46) mmHg POC pO2 Cancelled (80-95) mmHg POC HCO3 Cancelled (19-24) ben/L POC Total CO2 Cancelled (24-31) mmol/L POC Base Excess Cancelled (-9-1.8) ben/L O2 Sat Pulse Oximetry Cancelled ABG pH (Temp Correct) Cancelled ABG pCO2 (Temp Corrct Cancelled POC ABG pO2 at Pt Temp Cancelled POC ABG O2 Sat Cancelled (90-95) % Richard Test Cancelled Set Respiration Rate Cancelled O2 Delivery Device Cancelled POC O2 Rate Cancelled Minute Ventilation Cancelled Spont Minute Ventilation Cancelled Vent Mode Cancelled Vent Setting Cancelled Spontaneous Rate Cancelled FiO2 (liters per min) Cancelled POC FiO2 Cancelled Tidal Volume Cancelled Spontaneous Tidal Vol Cancelled End Tidal CO2 Cancelled PEEP Cancelled High PEEP Setting Cancelled Low PEEP Setting Cancelled Pressure Support Cancelled POC Pressure Suppt Cancelled Pressure Support Vent Cancelled Pressure High Cancelled Time High Cancelled Time Low Cancelled EPAP Cancelled IPAP Cancelled POC Sodium Cancelled (135-144) mmol/L Sodium (136-145) mmol/L POC Potassium Cancelled (3.3-5.0) mmol/L Potassium (3.5-5.1) mmol/L Chloride (98-107) mmol/L Carbon Dioxide (21-32) mmol/L Anion Gap (3-11) BUN (6-23) mg/dl Creatinine (0.6-1.2) mg/dl Est Cr Clr Drug Dosing ml/min eGFR BUN/Creatinine Ratio (10-20) Glucose (70-99(Fasting)) mg/dl Calcium (8.6-10.3) mg/dl Total Bilirubin (0.2-1.0) mg/dl AST (13-39) U/L ALT (7-52) U/L Alkaline Phosphatase (34-104) U/L Troponin I High Sens 39.1 H (0-14) pg/ml B-Natriuretic Peptide 145 H (0-100) pg/ml Total Protein (6.0-8.3) gm/dl Albumin (3.4-5.0) gm/dl Globulin (2.5-4.0) gm/dl Albumin/Globulin Ratio (0.9-2) Adenovirus (PCR) (NotDetected) B. pertussis DNA (PCR) (NotDetected) B.parapertussis DNA PCR (NotDetected) C. pneumoniae DNA (PCR) (NotDetected) Coronavirus OC43 (PCR) (NotDetected) Coronavirus HKU1 (PCR) (NotDetected) Coronavirus 229E (PCR) (NotDetected) SARS-CoV-2 (PCR) (NotDetected) Coronavirus NL63 (PCR) (NotDetected) Human Metapneumovir PCR (NotDetected) Influenza Type A (PCR) (NotDetected) Influenza Type B (PCR) (NotDetected) M. pneumoniae (PCR) (NotDetected) Parainfluenza 1 (PCR) (NotDetected) Parainfluenza 2 (PCR) (NotDetected) Parainfluenza 3 (PCR) (NotDetected) Parainfluenza 4 (PCR) (NotDetected) RSV (PCR) (NotDetected) Entero/Rhino (PCR) (NotDetected) Administered Medications Potassium Chloride (K Solomon / Wtr) 10 meq in 100 mls @ 100 mls/hr IV Q1H BAYRON Stop: 05/21/24 16:29 Last Admin: 05/21/24 14:45 Dose: 100 mls/hr Documented By: DS Imaging Data Radiologist's Impression: Chest X-Ray 05/21/24 11:32 XR chest 1V portable CLINICAL HISTORY: Chest pain, nonspecific COMPARISON STUDY: 05/17/2024 FINDINGS: Stable prominent cardiomegaly with mild pulmonary vascular congestion. There is mild pulmonary interstitial prominence. No lobar consolidation or pleural effusion. No pneumothorax. IMPRESSION: CHF. ACT 112: Negative or not required by law. Electronically signed by: Zurdo Sanchez M.D. 05/21/2024 12:[address] 05/21/24 12:08 CT head/brain wo con CLINICAL HISTORY: AMS. TECHNIQUE: Multiple axial CT images of the head were obtained without contrast. A dose lowering technique was utilized adhering to the principles of ALARA. CT DOSE: 625.8 mGy.cm COMPARISON: 02/17/2024. FINDINGS: No intracranial hemorrhage seen. No mass effect, midline shift, or hydrocephalus. Stable mild chronic small vessel ischemic changes. There is mucosal thickening at the right maxillary sinus and the left sphenoid sinus. No skull fracture seen. IMPRESSION: No acute findings. ACT 112: Negative or not required by law. The above report was generated using voice recognition software. It may contain grammatical, syntax or spelling errors. Electronically signed by: Zurdo Sanchez M.D. 05/21/2024 1:50 PM Discharge Plan Visit Data Chief Complaint: Chest Pain Stated Complaint: AMS, CHEST PAIN ED Provider: José Manuel Duque Discharge Problem: Confusion, End-stage renal disease (ESRD)
[2024-05-21 12:21] LABS: Troponin I High Sensitivity 40.7 pg/ml (0-14)
--- NOTE | 2024-05-21 12:36 | Electrocardiogram Report ---
Test Reason : Blood Pressure : */* mmHG Vent. Rate : 66 BPM Atrial Rate : 66 BPM P-R Int : 162 ms QRS Dur : 168 ms QT Int : 500 ms P-R-T Axes : 33 14 163 degrees QTcB Int : 524 ms Sinus rhythm with frequent Premature ventricular complexes Left bundle branch block Abnormal ECG When compared with ECG of 07-May-2024 13:58, Fusion complexes are no longer Present Premature ventricular complexes are now Present Vent. rate has decreased by 33 bpm Confirmed by Cristhian Tanner ([id number]) on 05/21/2024 12:36:42 PM Referred By: Confirmed By: Cristhian Tanner
[2024-05-21 13:06] LABS: iSTAT Arterial Blood Gas HCO3 33 meg/L (19-24); iSTAT Arterial Blood Gas pCO2 50 mmHg (35-46); iSTAT Arterial Blood Gas pH 7.42 (7.35-7.45); iSTAT Arterial Blood Gas pO2 52 mmHg (80-95); iSTAT Carbon Dioxide 34 mmol/L (24-31); iSTAT Hematocrit 34 % (37-47); iSTAT Hemoglobin 11.6 g/dl (12.0-16.0); iSTAT Potassium 2.7 mmol/L (3.3-5.0); iSTAT Sodium 137 mmol/L (135-144)
[2024-05-21 13:43] LABS: Adenovirus PCR Not Detected (NotDetected); Bordetella parapertussis PCR Not Detected (NotDetected); Bordetella pertussis PCR Not Detected (NotDetected); Chlamydia pneumoniae PCR Not Detected (NotDetected); Coronavirus 229E PCR Not Detected (NotDetected); Coronavirus CoV-2 (COVID19)PCR Not Detected (NotDetected); Coronavirus HKU1 PCR Not Detected (NotDetected); Coronavirus NL63 PCR Not Detected (NotDetected); Coronavirus OC43PCR Not Detected (NotDetected); Human Metapneumovirus PCR Not Detected (NotDetected); Influenza B PCR Not Detected (NotDetected); Mycoplasma pneumoniae PCR Not Detected (NotDetected); Parainfluenza Virus 1 PCR Not Detected (NotDetected); Parainfluenza Virus 2 PCR Not Detected (NotDetected); Parainfluenza Virus 3 PCR Not Detected (NotDetected); Parainfluenza Virus 4 PCR Not Detected (NotDetected); Respiratory Syncytial VirusPCR Not Detected (NotDetected); Rhinovirus/Enterovirus PCR Not Detected (NotDetected)
--- NOTE | 2024-05-21 13:52 | CT Scan Report ---
CT head/brain wo con CLINICAL HISTORY: AMS. TECHNIQUE: Multiple axial CT images of the head were obtained without contrast. A dose lowering tech nique was utilized adhering to the principles of ALARA. CT DOSE: 625.8 mGy.cm COMPARISON: 02/17/2024. FINDINGS: No intracranial hemorrhage seen. No mass effect, midline shift, or hydrocephalus. Stable mi ld chronic small vessel ischemic changes. There is mucosal thickening at the right maxillary sinus an d the left sphenoid sinus. No skull fracture seen. IMPRESSION: No acute findings. ACT 112: Negative or not required by law. The above report was generated using voice recognition software. It may contain grammatical, syntax o r spelling errors. Electronically signed by: Zurdo Sanchez M.D. 05/21/2024 1:50 PM
[2024-05-21 14:45] LABS: Influenza A PCR Not Detected (NotDetected)
[2024-05-21] MEDS: POTASSIUM CHLORIDE / WTR 10 MEQ/100 ML PLCT IV SCH (14:45)
--- NOTE | 2024-05-21 15:36 | History & Physical Report ---
Date of Service May 21, 2024 Assessment & Plan (1) Chest pain: (2) Volume overload: (3) Acute respiratory failure with hypoxia: (4) End-stage renal disease (ESRD): (5) Lethargy: Plan: 78-year-old female with history of end-stage renal disease, Parkinson's, hypothyroidism, obstructive sleep apnea, orthostatic hypotension presenting with chest pain, hypoxia, confusion while at dialysis today. Chest pain, rule out ACS, rule out PE Occurred during hemodialysis earlier today Chest pain-free while at the ER Initial troponins 40, 39, third set pending EKG no signs of acute ischemia or infarct Update echocardiogram CT angio to rule out PE Acute hypoxic respiratory failure Likely volume overload from ESRD Discharged from the hospital yesterday after being admitted for acute respiratory failure secondary to multifocal pneumonia, influenza A ABG:pH 7.4, pCO2 50, bicarb 33 Chest x-ray today showing CHF pattern Will follow-up CT chest to check for possible effusion, no infiltrates BioFire pending Continue CPAP for now Dr. Baig notified, for HD today Lethargy, confusion? CT head no acute process ABG okay Likely secondary to above Check blood culture, urinalysis as well to rule out infection Continue to monitor closely Other chronic medical conditions: Parkinson disease Hypothyroidism Obstructive sleep apnea Orthostatic hypotension-continue midodrine DVT prophylaxis SCDs for now Disposition Lives at [facility] CODE STATUS Full code for now, clarify when patient is more awake Admission and Anticipated Discharge Date Admission Date: May 21, 2024 History of Present Illness Chief Complaint: Chest pain, hypoxia, confusion during dialysis Primary Care Provider: Nae Rodriges PA-C 78-year-old female with history of end-stage renal disease, Parkinson's, hypothyroidism, obstructive sleep apnea, orthostatic hypotension presenting with chest pain, hypoxia, confusion while at dialysis today. History obtained from ER physician as patient is very drowsy. Patient was discharged yesterday from a [facility] after being treated for acute hypoxic respiratory failure secondary to multifocal pneumonia, influenza A, requiring intubation. She completed the course of antibiotics and was discharged on room air. Today, with 1 hour remaining left for hemodialysis, the patient developed chest pain, and was noted to be hypoxic and confused. She was then brought to the ER for evaluation At the ER, patient's blood pressure was borderline, saturating 88% on room air, afebrile. She was placed on her usual CPAP. CT head: No acute process ABG: pH 7.4, pCO2 50, bicarb 33 Chest x-ray: CHF pattern, pulmonary congestion Troponins: 40, 39 EKG: Sinus rhythm with PVCs, no signs of ischemia or infarct Patient seen at the bedside, with her CPAP on, not in distress, sleeping, comfortable. She awakens with verbal commands, answer simple questions then drifts back to sleep. She denies having active chest pain, shortness of breath. She is complaining of left hand pain, side ongoing IV K rider. Allergies Allergy/AdvReac Type Severity Reaction Status Date / Time No Known Allergies Allergy Verified 05/06/24 20:04 Home Medications Medication Instructions Recorded Confirmed Type aspirin 81 mg tablet,delayed 162 mg PO 3XWK 11/15/21 05/06/24 History release atorvastatin 80 mg tablet 80 mg PO QPM 11/15/21 05/06/24 History carbidopa 25 mg-levodopa 100 mg 1 tab PO TIDM 11/15/21 05/06/24 History tablet docusate sodium 100 mg capsule 100 mg PO DAILY 11/15/21 05/06/24 History (Colace) levothyroxine 125 mcg tablet 125 mcg PO QAM 11/15/21 05/06/24 History pregabalin 100 mg capsule 100 mg PO BID 11/15/21 05/06/24 History pantoprazole 20 mg tablet,delayed 20 mg PO BID 05/23/22 05/06/24 History release epinephrine 0.3 mg/0.3 mL 0.3 mg IM DIRECTED PRN 09/05/22 05/06/24 History injection, auto-injector (EpiPen) Anaphylaxis melatonin 10 mg tablet 10 mg PO HS 09/05/22 05/06/24 History ferric citrate 210 mg iron tablet 420 mg PO WM 01/21/23 05/06/24 History (Auryxia) fluticasone furoate 200 1 inh inhalation AMHS 01/21/23 05/06/24 History mcg-vilanterol 25 mcg/dose inhalation powder (Breo Ellipta) cholecalciferol (vitamin D3) 25 25 mcg PO DAILY 10/27/23 05/06/24 History mcg (1,000 unit) capsule vitamin B complex-vitamin C-folic 1 tab PO DAILY 10/27/23 05/06/24 History acid 0.8 mg tablet (Nanci-Samuel) acetaminophen 325 mg tablet 325 - 650 mg PO Q6 PRN MILD-SEVERE 05/06/24 05/06/24 History PAIN acetaminophen 500 mg tablet 500 mg PO QID 3G 05/06/24 05/06/24 History dextromethorphan-guaifenesin 10 2.5 ml PO Q4 PRN Cough 05/06/24 05/06/24 History mg-200 mg/5 mL oral liquid diclofenac sodium 1 % topical gel 2 g topical QID 05/06/24 05/06/24 History escitalopram oxalate 10 mg tablet 10 mg PO QAM 05/06/24 05/06/24 History ferric citrate 210 mg iron tablet 210 mg PO . NEEDED PRN WITH 05/06/24 05/06/24 History (Auryxia) SNACKS guaifenesin 100 mg/5 mL oral 200 mg PO Q4H PRN Cough 05/06/24 05/06/24 History liquid (Siltussin SA) ipratropium 0.5 mg-albuterol 3 mg 3 ml inhalation Q4 PRN Wheezing 05/06/24 05/06/24 History (2.5 mg base)/3 mL nebulization soln ipratropium 0.5 mg-albuterol 3 mg 3 ml inhalation TID 05/06/24 05/06/24 History (2.5 mg base)/3 mL nebulization soln lidocaine-prilocaine 2.5 %-2.5 % 1 applic topical 3XWK 05/06/24 05/06/24 History topical cream midodrine 10 mg tablet 5 mg PO 3XWK 05/06/24 05/06/24 History midodrine 5 mg tablet 5 mg PO UD 05/06/24 05/06/24 History ondansetron HCl 4 mg tablet 4 mg PO Q6H PRN Nausea And Vomiting 05/06/24 05/06/24 History sertraline 25 mg tablet 25 mg PO UD 05/06/24 05/06/24 History sertraline 50 mg tablet 50 mg PO QAM 05/06/24 05/06/24 History Past Med/Surg History Problem List (Updated 05/21/24 @ 15:46 by Jacobo Mcclendon MD) Volume overload Chest pain Dysphagia Acute encephalopathy Influenza A Pneumonia Acute UTI (urinary tract infection) (Acute) Leukocytosis (Acute) Elevated procalcitonin (Acute) Endotracheally intubated (Acute) Elevated brain natriuretic peptide (BNP) level (Acute) Pulmonary vascular congestion (Acute) Influenza A (Acute) Elevated troponin (Acute) Acute confusion (Acute) Sepsis (Acute) Acute hypoxemic respiratory failure (Acute) Pulmonary edema (Acute) Acute respiratory failure with hypoxia RENÉ (obstructive sleep apnea) Diet-controlled type 2 diabetes mellitus Acute on chronic hypoxic respiratory failure (Acute) Chronic hypoxemic respiratory failure Noncompliance with renal dialysis Acute metabolic encephalopathy Hypotension (Acute) Confusion (Acute) Hypothyroidism Sinus bradycardia Hypotension Hemodialysis status (Acute) Anemia (Acute) LBBB (left bundle branch block) (Acute) DM type 2 (diabetes mellitus, type 2) Elevated troponin (Acute) Hypertension Toxic metabolic encephalopathy Dialysis disequilibrium syndrome (Acute) Acute on chronic respiratory failure with hypoxemia Leukocytosis LBBB (left bundle branch block) (Acute) ESRD (end stage renal disease) on dialysis (Acute) Anemia of chronic disease End-stage renal disease (ESRD) (Acute) Generalized weakness Parkinson disease Medical History ESRD on hemodialysis Thickened endometrium Acute ischemic stroke NSTEMI (non-ST elevated myocardial infarction) Elevated troponin I level AV fistula R arm Limb alert care status R arm History of recent hospitalization d/c 09/09/22>per medical record, pt sent to ER at [facility] following dialysis for reddened sores on her buttocks. Admitting dx was enterococcus UTI, decubitus ulcer and sacral cellulitis. Difficult intravenous access Black stools Mobility impaired pt non compliant with hx pt treatments / PT IS IN WHEELCHAIR/TOTAL ASSIST Poor short term memory [place] (hard of hearing) COPD (chronic obstructive pulmonary disease) no medications for currently History of stroke 2019- pts spouse poor historian pt denies hx stroke History of anesthesia reaction "hard time waking up" Hx: recurrent pneumonia History of COVID-19 ? early 2021- mild congestion, no hospitalization, no current issues Non-ST elevation [place] (NSTEMI) pt spouse not sure/ mild ? remembers something mentioned in hx/ ? details ESRD (end stage renal disease) [place] dialysis [place], [place]ur & [place] ([place] Aspiration pneumonia HX Morbid obesity Rheumatoid arthritis ? current status/no meds for Chronic diastolic heart failure EF 50% on 01/2020 echo RACHEL (iron deficiency anemia) Subdural hematoma hx fall 2019 - tx to [facility]/no surgical intervention RENÉ on CPAP Depression Meniere's disease Generalized anxiety disorder Dyslipidemia Restless leg syndrome Diabetes mellitus, type II hx / NO MEDS HTN (hypertension) Surgical History Hx of arteriovenostomy for renal dialysis right arm History of tubal ligation History of carpal tunnel surgery B/L History of orthopedic surgery " bilat heel surgery" H/O sinus surgery Hx of total knee arthroplasty B/L Family History Other AAA (abdominal aortic aneurysm) Diabetes Family history non-contributory Hypertension Myotonic dystrophy Social History Smoking Status: Former smoker Tobacco Type: Cigarettes Cigarettes Per Day: 0.25ppd; Second Hand Exposure: No; Do You Dip or Chew Tobacco: No; Hx Alcohol Use: No Hx Substance Use: No Preferred Language: Maldivian Communication Ability: Impaired Communication Ability Comment: intubated Oracle Engineer Required: No Beliefs That Will Affect Care: None marital status: Current Living Situation: [facility] Current Living Situation Comment: Tashia Robertson Feels Safe at Home: Yes Assistive Devices: Mechanical Lift, Oxygen - Continuous and Wheelchair Review of Systems Review of Systems: all noted and negative except for above Physical Exam Physical Exam: General- oriented x 2, not in distress, speaks in sentences with no effort or accessory muscle use drowsy Head- atraumatic Eyes- PERRL, EOMI, anicteric ENT- oropharynx clear Neck- supple, no JVD, no adenopathy, no thyromegaly; carotids +2/2, no bruits appreciated Lungs- clear to auscultation bilaterally, no rales/wheezes Heart- normal rate, regular rhythm; no murmur, no gallop, no rub appreciated Abdomen- normal bowel sounds, nondistended, soft, nontender, no masses or hepatosplenomegaly Extremities- no pretibial edema, no calf tenderness; peripheral pulses intact Neuro- drowsy, oriented x 2;moves all extremities equally no gross focal neurologic deficit noted Skin- warm & dry Results & Data Results & Data Vital Signs (Past 12 Hours) Vital Signs Temp Pulse Pulse Resp BP BP Pulse Ox 05/21/24 15:30 63 16 100 05/21/24 15:06 63 16 100 05/21/24 14:48 71 17 100 05/21/24 14:31 94/71 L 99 05/21/24 14:30 70 17 99 05/21/24 14:06 69 17 100 05/21/24 13:38 98/58 L 05/21/24 13:36 64 17 96 05/21/24 13:33 70 19 100 05/21/24 13:03 70 20 100 05/21/24 13:03 68 16 100 05/21/24 13:00 125/70 05/21/24 12:51 73 24 100 05/21/24 12:30 71 18 100 05/21/24 12:01 119/65 05/21/24 12:00 61 18 100 05/21/24 11:59 64 05/21/24 11:57 63 18 99 05/21/24 11:34 67 20 88 L 05/21/24 11:34 88 L 05/21/24 11:32 36.0 C L 67 20 115/47 L 94 05/21/24 11:32 94 05/21/24 11:30 108/65 05/21/24 11:30 108/65 05/21/24 11:24 67 20 94 05/21/24 11:23 35.9 C L 67 20 115/47 L 94 05/21/24 11:21 66 20 95 05/21/24 11:17 115/47 L O2 Del Method O2 Flow Rate 05/21/24 15:30 2 05/21/24 15:06 05/21/24 14:48 CPAP 05/21/24 14:31 CPAP 05/21/24 14:30 05/21/24 14:06 CPAP 05/21/24 13:38 05/21/24 13:36 CPAP 05/21/24 13:33 CPAP 05/21/24 13:03 2 05/21/24 13:03 2 05/21/24 13:00 05/21/24 12:51 05/21/24 12:30 2 05/21/24 12:01 05/21/24 12:00 2 05/21/24 11:59 05/21/24 11:57 2 05/21/24 11:34 Room Air 05/21/24 11:34 Room Air 05/21/24 11:32 Room Air 05/21/24 11:32 Room Air 05/21/24 11:30 05/21/24 11:30 05/21/24 11:24 2 05/21/24 11:23 Room Air 05/21/24 11:21 2 05/21/24 11:17 all noted and reviewed including below Code Status & VTE Plan VTE Prophylaxis Plan VTE Prophylaxis will be ordered: Yes
--- NOTE | 2024-05-21 15:39 | Nephrology Consultation ---
Date of Consultation May 21, 2024 Assessment & Plan (1) ESRD (end stage renal disease) on dialysis: today is her dialysis day but she did not complete the dialysis and currently is hypoxic requiring BiPAP with radiological and clinical evidence of congestive heart failure. however taking fluid off has been a big challenge as her blood pressure is always low. we will give her midodrine 10 mg before dialysis. She is already on midodrine as an outpatient. we will attempt to take 2 kilos off but I doubt will be successful given her track record with dialysis on Friday as well as Friday inpatient. Also I am not convinced there is a lot of CHF here. We will attempt to do now for 2.5 to 3 hrs. if we are unable to she may have to be done in the ICU with pressors tomorrow. if her blood pressure situation does not improve we do have to visit the code status of the patient. Her health has declined rapidly in the last few months with multiple hospitalization. (2) Acute encephalopathy: unclear etiology at this time. Defer to primary team. It is being investigated (3) Acute respiratory failure with hypoxia: probably multifactorial with recent influenza as well as CHF and encephalo kelli. will give it benefit of doubt and try to do dialysis today but taking fluid has been very challenging on Friday as well as Friday. On exam I dont see a lot of CHF--ABG was near normal. Plan time spent 48 minutes History of Present Illness Reason for Consultation: ESRD on dialysis admitted with hypoxia shortness of breath and altered mental status Attending Physician: Lorenzo Duenas MD History of Present Illness 78-year-old female with multiple chronic medical problems and progressive decline in her health over the last few months with multiple hospitalizations. In fact she was discharged from the hospital just yesterday after an admission for influenza/pneumonia with respiratory failure. she had outpatient dialysis but they could not finish because of altered mental status hypoxia and was sent over to the emergency department. patient is currently requiring CPAP machine. Her blood pressure is low at 94 x 71 but she always has low blood pressure and is on midodrine. review of systems unable to obtain--- as patient is sick and weak with CPAP Physical Exam Constitutional: well developed (looks tired) and well nourished; no acute distress Eyes: EOM intact bilaterally ENMT: Ears: + hearing impairment Nose: no external nose abnormality Mouth: + dry oral mucous membranes Respiratory: normal respiratory effort; no cough Auscultation: + diminished lung sounds Cardiovascular: RRR, no murmur, no edema Extremities: + AV fistula Gastrointestinal (Abdomen): Inspection/Auscultation: normal bowel sounds Percussion/Palpation: abdomen soft; abdomen nontender Musculoskeletal: Extremities: trace edema Skin: no rashes, warm and dry Allergies Allergy/AdvReac Type Severity Reaction Status Date / Time No Known Allergies Allergy Verified 05/06/24 20:04 Home Medications Medication Instructions Recorded Confirmed Type aspirin 81 mg tablet,delayed 162 mg PO 3XWK 11/15/21 05/06/24 History release atorvastatin 80 mg tablet 80 mg PO QPM 11/15/21 05/06/24 History carbidopa 25 mg-levodopa 100 mg 1 tab PO TIDM 11/15/21 05/06/24 History tablet docusate sodium 100 mg capsule 100 mg PO DAILY 11/15/21 05/06/24 History (Colace) levothyroxine 125 mcg tablet 125 mcg PO QAM 11/15/21 05/06/24 History pregabalin 100 mg capsule 100 mg PO BID 11/15/21 05/06/24 History pantoprazole 20 mg tablet,delayed 20 mg PO BID 05/23/22 05/06/24 History release epinephrine 0.3 mg/0.3 mL 0.3 mg IM DIRECTED PRN 09/05/22 05/06/24 History injection, auto-injector (EpiPen) Anaphylaxis melatonin 10 mg tablet 10 mg PO HS 09/05/22 05/06/24 History ferric citrate 210 mg iron tablet 420 mg PO WM 01/21/23 05/06/24 History (Auryxia) fluticasone furoate 200 1 inh inhalation AMHS 01/21/23 05/06/24 History mcg-vilanterol 25 mcg/dose inhalation powder (Breo Ellipta) cholecalciferol (vitamin D3) 25 25 mcg PO DAILY 10/27/23 05/06/24 History mcg (1,000 unit) capsule vitamin B complex-vitamin C-folic 1 tab PO DAILY 10/27/23 05/06/24 History acid 0.8 mg tablet (Nanci-Samuel) acetaminophen 325 mg tablet 325 - 650 mg PO Q6 PRN MILD-SEVERE 05/06/24 05/06/24 History PAIN acetaminophen 500 mg tablet 500 mg PO QID 3G 05/06/24 05/06/24 History dextromethorphan-guaifenesin 10 2.5 ml PO Q4 PRN Cough 05/06/24 05/06/24 History mg-200 mg/5 mL oral liquid diclofenac sodium 1 % topical gel 2 g topical QID 05/06/24 05/06/24 History escitalopram oxalate 10 mg tablet 10 mg PO QAM 05/06/24 05/06/24 History ferric citrate 210 mg iron tablet 210 mg PO . NEEDED PRN WITH 05/06/24 05/06/24 History (Auryxia) SNACKS guaifenesin 100 mg/5 mL oral 200 mg PO Q4H PRN Cough 05/06/24 05/06/24 History liquid (Siltussin SA) ipratropium 0.5 mg-albuterol 3 mg 3 ml inhalation Q4 PRN Wheezing 05/06/24 05/06/24 History (2.5 mg base)/3 mL nebulization soln ipratropium 0.5 mg-albuterol 3 mg 3 ml inhalation TID 05/06/24 05/06/24 History (2.5 mg base)/3 mL nebulization soln lidocaine-prilocaine 2.5 %-2.5 % 1 applic topical 3XWK 05/06/24 05/06/24 History topical cream midodrine 10 mg tablet 5 mg PO 3XWK 05/06/24 05/06/24 History midodrine 5 mg tablet 5 mg PO UD 05/06/24 05/06/24 History ondansetron HCl 4 mg tablet 4 mg PO Q6H PRN Nausea And Vomiting 05/06/24 05/06/24 History sertraline 25 mg tablet 25 mg PO UD 05/06/24 05/06/24 History sertraline 50 mg tablet 50 mg PO QAM 05/06/24 05/06/24 History Patient History Medical History ESRD on hemodialysis Thickened endometrium Acute ischemic stroke NSTEMI (non-ST elevated myocardial infarction) Elevated troponin I level AV fistula R arm Limb alert care status R arm History of recent hospitalization d/c 09/09/22>per medical record, pt sent to ER at [facility] following dialysis for reddened sores on her buttocks. Admitting dx was enterococcus UTI, decubitus ulcer and sacral cellulitis. Difficult intravenous access Black stools Mobility impaired pt non compliant with hx pt treatments / PT IS IN WHEELCHAIR/TOTAL ASSIST Poor short term memory [place] (hard of hearing) COPD (chronic obstructive pulmonary disease) no medications for currently History of stroke 2019- pts spouse poor historian pt denies hx stroke History of anesthesia reaction "hard time waking up" Hx: recurrent pneumonia History of COVID-19 ? early 2021- mild congestion, no hospitalization, no current issues Non-ST elevation [place] (NSTEMI) pt spouse not sure/ mild ? remembers something mentioned in hx/ ? details ESRD (end stage renal disease) on dialysis tues, thur & sat ([place]) Aspiration pneumonia HX Morbid obesity Rheumatoid arthritis ? current status/no meds for Chronic diastolic heart failure EF 50% on 01/2020 echo RACHEL (iron deficiency anemia) Subdural hematoma hx fall 2019 - tx to [facility]/no surgical intervention RENÉ on CPAP Depression Meniere's disease Generalized anxiety disorder Dyslipidemia Restless leg syndrome Diabetes mellitus, type II hx / NO MEDS HTN (hypertension) Surgical History Hx of arteriovenostomy for renal dialysis right arm History of tubal ligation History of carpal tunnel surgery B/L History of orthopedic surgery " bilat heel surgery" H/O sinus surgery Hx of total knee arthroplasty B/L Family History Other AAA (abdominal aortic aneurysm) Diabetes Family history non-contributory Hypertension Myotonic dystrophy Social History Smoking Status: Former smoker Tobacco Type: Cigarettes Cigarettes Per Day: 0.25ppd; Second Hand Exposure: No; Do You Dip or Chew Tobacco: No; Hx Alcohol Use: No Hx Substance Use: No Preferred Language: Setswana Communication Ability: Impaired Communication Ability Comment: intubated Therapist Asst Required: No Beliefs That Will Affect Care: None marital status: Current Living Situation: Long Term Current Living Situation Comment: Tashia Robertson Feels Safe at Home: Yes Assistive Devices: Mechanical Lift, Oxygen - Continuous and Wheelchair Results & Data Vital Signs (Past 12 Hours) Vital Signs Temp Pulse Pulse Resp BP BP Pulse Ox 05/21/24 15:30 63 16 100 05/21/24 15:06 63 16 100 05/21/24 14:48 71 17 100 05/21/24 14:31 94/71 L 99 05/21/24 14:30 70 17 99 05/21/24 14:06 69 17 100 05/21/24 13:38 98/58 L 05/21/24 13:36 64 17 96 05/21/24 13:33 70 19 100 05/21/24 13:03 70 20 100 05/21/24 13:03 68 16 100 05/21/24 13:00 125/70 05/21/24 12:51 73 24 100 05/21/24 12:30 71 18 100 05/21/24 12:01 119/65 05/21/24 12:00 61 18 100 05/21/24 11:59 64 05/21/24 11:57 63 18 99 05/21/24 11:34 67 20 88 L 05/21/24 11:34 88 L 05/21/24 11:32 36.0 C L 67 20 115/47 L 94 05/21/24 11:32 94 05/21/24 11:30 108/65 05/21/24 11:30 108/65 05/21/24 11:24 67 20 94 05/21/24 11:23 35.9 C L 67 20 115/47 L 94 05/21/24 11:21 66 20 95 05/21/24 11:17 115/47 L O2 Del Method O2 Flow Rate 05/21/24 15:30 2 05/21/24 15:06 05/21/24 14:48 CPAP 05/21/24 14:31 CPAP 05/21/24 14:30 05/21/24 14:06 CPAP 05/21/24 13:38 05/21/24 13:36 CPAP 05/21/24 13:33 CPAP 05/21/24 13:03 2 05/21/24 13:03 2 05/21/24 13:00 05/21/24 12:51 05/21/24 12:30 2 05/21/24 12:01 05/21/24 12:00 2 05/21/24 11:59 05/21/24 11:57 2 05/21/24 11:34 Room Air 05/21/24 11:34 Room Air 05/21/24 11:32 Room Air 05/21/24 11:32 Room Air 05/21/24 11:30 05/21/24 11:30 05/21/24 11:24 2 05/21/24 11:23 Room Air 05/21/24 11:21 2 05/21/24 11:17 Laboratory Results CBC renal panel reviewed Diagnostic Findings chest x-ray shows CHF
[2024-05-21] MEDS: OPTIRAY 320 125ml IV ONE (15:59)
--- NOTE | 2024-05-21 16:31 | CT Scan Report ---
EXAM: CT Angiography Chest With Intravenous Contrast INDICATION: Chest pain TECHNIQUE: Axial computed tomographic angiography images of the chest with intravenous contrast. Sagittal and coronal reformatted images were created and reviewed. This CT exam was performed using one or more of the following dose reduction techniques: automated exposure control, adjustment of the mA and/or kV according to patient size, and/or use of iterative reconstruction technique. MIP reconstructed images were created and reviewed. CONTRAST: 115ml of Optiray 320 was administered intravenously. COMPARISON: 01/30/2020 FINDINGS: Pulmonary arteries: No abnormality noted. No pulmonary embolism. Aorta: Atherosclerotic calcification of the aorta and branches. No aneurysm. Lungs and pleural spaces: Scattered groundglass opacity throughout the lungs noted relatively sparing the left upper lobe. No confluent consolidation. No bronchiectasis, honeycombing or reticulation. No significant effusion. No pneumothorax. Heart: Stable marked cardiomegaly. No right heart strain or pericardial effusion. Bones/joints: No acute or atypical chronic changes. Soft tissues: No abnormality noted. Lymph nodes: No abnormality noted. No enlarged lymph nodes. IMPRESSION: 1. No pulmonary embolus noted. 2. Multifocal groundglass infiltrates in both lungs typical of nonspecific pneumonitis. ACT 112: N/A Electronically signed by Hyun Valderrama 05-21-2024 4:31 PM
[2024-05-21] MEDS ORDERED: methylPREDNISolone 125 MG/2 ML VIAL IV SCH (17:00)
[2024-05-21] MEDS: MIDODRINE HCL 10 MG TAB PO STA (17:21)
[2024-05-21] MEDS: methylPREDNISolone 40 MG in SYRINGE 0 ML IV SCH (21:05)
[2024-05-21] MEDS: CEFEPIME 2000MG 2,000 MG/20 ML SYR IV ONE (21:05)
--- OUTSIDE RECORDS SUMMARY | 2024-05-21 23:49 | External Medical Summary | Summary of Care ---
Author Name Unknown Organization [facility] Address [address] [place] [address] Phone [phone] Care Team Providers Care Claim Technician Name Role Phone Howie Gilbert MD Primary Care Provide r Reason for Visit * Reason Onset Date Comments Complicated Acute Visit 05/06/2024 Encounter Details Date Type Department Care Team (Latest Contact Info) Description 05/06/2024 9:00 AM EST Senior Care Visit [facility] [address] [place] [address] Nae Rodriges PA-C [address] [place] [address] Influenza A*; 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HCC); ESRD (end stage renal disease) on dialysis (HCC); Steatohepatitis, non-alcoholic; COPD, group B, by GOLD 2017 classification (HCC); Chronic heart failure with preserved ejection fraction (HCC) Allergies No known active allergiesdocumented as of this encounter (statuses as of 05/06/2024) Medications ONETOUCH DELICA LANCETS 33G MISC Up to 4 times daily 100 Each 6 11/25/19 15 Active Glucose Blood (ONETOUCH ULTRA BLUE) STRP Use as directed 4 times a day as needed (Diabetes). Use up to four times a day as directed 100 Strip 11 02/04/20 18 Active Nebulizers (NEBULIZER COMPRESSOR) MISCIndications:CO PD, group B, by GOLD 2017 classification ([facility]) Inhale via nebulizer. Use as directed. 1 [...] )Indications:COPD, group B, by GOLD 2017 classification ([facility] [...] 10:42 AM EST 11/10/19 23 Active Nystatin 003932 UNIT/GM External Powder (Nystop) Apply topically to [...] at bedtime. 30 Tablet 11/04/19 24 Active Carbidopa-Levodopa 25-100 MG Oral [...] days a week 120 Capsule 02/24/20 Active Midodrine HCl 5 MG Oral Tablet (Proamatine) Take 1 Tablet by mouth in the morning and 1 Tablet at noon and 1 Tablet in the evening. Take an additional tablet MWF at dialysis. 05/05/19 Active documented as of this encounter (statuses as of 05/06/2024) Active Problems Problem Noted Date Diagnosed Date Influenza A 05/06/2024 Current moderate episode of major depressive dis [...] as of this encounter (statuses as of 05/06/2024) Resolved Problems Problem Noted Date Diagnosed Date [...] (08/09/2022 11:02 AM EDT): Needs colonoscopy scheduled -[facility] Palliative care encounter 06/07/2021 Hypothyroidism 05/31/2021 05/27/2022 [...] as of this encounter (statuses as of 05/06/2024) Immunizations Name Administration Dates Next Due COVID-19 mRNA, LNP-s, No Pre serve, 2-Dose Series ([employer]) 01/02/2021,06/21/2020,05/24/2020 COVID-19, mRNA, LNP-s, PF, B ooster, [...] Progress Notes * Nae Rodriges PA-C - 05/06/2024 3:11 PM EST Name: Kami Hassan Date of :1945 TRANSITION EVENT: Type: Complicated acute visit Date: May 06 Code Status: Full Code This note pertains to care provided at [facility]. Please see facility medical record for original note. This note is not to be edited or addended in [employer]. Editing or addending needs to occur in the facilities medical record. Subjective: Kami Hassan is a 78 year old female. Patient being seen for Influenza A Chief Complaint Patient presents with Complicated Acute Visit HPI: Pt was seen for Regulatory Visit yesterday and noted to have cough, chest congestion and fatigue. CXR done 05/06/24 showed NAD. Nasal swab for RSV, Flu A/B and Covid positive for Flu A. Yesterdaypt was begun on Duonebs prn and Siltussin and Tylenol prn pending results of nasal swab Pt is more lethargic today on evaluation. Temperature 100.4 F. HR: 88 and regular , RR: 18 BP: 122/87mmHg. O2 saturation: 92% Pt continues with harsh cough, chest congestion and wheezing. No diarrhea. Pt has ESRD on dialysis, HRpEF, COPD, steatohepatitis, RA, RENÉ (refuses CPAP frequently), DM, dementia with PD. Pt is full code. Labs done at dialysis center Hemoglobin AIC Results: Lab Results Component Value Date/Time HEMOGLOBIN A1C - [facility] 5.4 09/22/2023 05:43 AM HEMOGLOBIN A1C - [facility] 4.9 03/09/2023 06:04 AM HEMOGLOBIN A1C - [facility] 5.3 05/31/2021 03:04 PM HEMOGLOBIN A1C - [facility] 5.1 03/23/2019 04:45 PM HEMOGLOBIN A1C - [facility] 4.9 05/01/2018 02:07 PM HEMOGLOBIN A1C - [facility] 5.3 10/13/2017 01:44 PM TSH Results: Lab Results Component Value Date/Time TSH - [facility] 2.54 09/22/2023 05:43 AM TSH - [facility] 1.56 08/10/2022 01:48 PM TSH - [facility] 2.16 05/31/2021 03:04 PM TSH - [facility] 2.61 02/25/2019 03:48 PM TSH - [facility] 1.27 08/01/2018 02:00 PM TSH - [facility] 5.31 (H) 05/30/2017 04:23 PM TSH - [facility] 0.617 01/30/2020 12:00 AM Lipid Panel Results: Results for orders placed or performed in visit on 09/22/23 LIPID PANEL WITHOUT DIRECT LDL Result Value Ref Range Triglycerides 159 <=174 mg/dL Cholesterol 141 <200 mg/dL HDL Cholesterol 50 >49 mg/dL Non-HDL Cholesterol 91 <=159 mg/dL LDL Cholesterol 59 <=129 mg/dL Results for orders placed or performed in visit on 10/04/22 LIPID PANEL WITH DIRECT LDL IF TG IS HIGH Result Value Ref Range Triglycerides 135 <=174 mg/dL Cholesterol 135 <200 mg/dL HDL Cholesterol 63 >49 mg/dL Non-HDL Cholesterol 72 <=159 mg/dL LDL Cholesterol 45 <=129 mg/dL Patient Active Problem List Diagnosis Meniere's disease, [...] COPD, group B, by GOLD 2017 classification ([facility]) Chronic heart failure with preserved ejection fraction ([facility]) Iron deficiency anemia due to chronic blood [...] Morbid (severe) obesity due to excess calories ([facility]) Full code status History of colon polyps Sinus bradycardia Orthostatic hypotension History of 2018 novel coronavirus disease (COVID-19) Current moderate episode of major depressive disorder (HCC) Influenza A Past Medical History: Diagnosis Date (HFpEF) heart failure with preserved ejection fraction (HCC) Acute on chronic diastolic (congestive) heart failure (HCC) 03/04/2020 [facility] Allergic rhinitis 02/15/2000 acute BMI 38.0-38.9,adult 08/28/2009 Chronic Sinusitis Unspecified Controlled substance agreement signed 11/25/2016 COVID-19 10/23/2021 Cystitis 05/23/2022 admitted [facility] home on cefuroxime Dyslipidemia, goal LDL [...] rheumatoid factor (HCC) 07/18/2016 SDH (subdural hematoma) ([facility]) 04/20/2019 acute Serrated polyp of colon 09/20/2022 7 mm descending colon Sleep apnea Tinnitus 01/2005 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 Del Real CARPAL TUNNEL SURGERY Bilateral COLONOSCOPY, DIAGNOSTIC (RECTUM) 11/27/2015 normal, repeat 10 yrs/COLONOSCOPY FLEXIBLE PROXIMAL DIAGNOSTIC performed by Garrett Chang MD at ENDOSCOPY [facility] COLONOSCOPY, DIAGNOSTIC (RECTUM) 09/20/2022 serrated polyp, fair prep / [facility] EGD, FLEXIBLE, DIAGNOSTIC 04/19/2022 esophagitis, repeat 8-12 wks / [facility] EGD, FLEXIBLE, DIAGNOSTIC 06/26/2022 normal, retained food / [facility] EGD, FLEXIBLE, DIAGNOSTIC N/A 01/24/2023 normal/EGD/MS EXPLORATION OF MAXILLARY SINUS 03/17/1995 Sinus Surgery HYSTEROSCOPY,DIAGNOSTIC 2022 atrophic endometrium, endometrial polyp INJECTION LUMBAR/SACRAL 07/31/2015 INJECTION SPINE LUMBAR OR SACRAL performed by Guy Jenni Prado DO at OR [facility] INJECTION LUMBAR/SACRAL 08/15/2015 INJECTION SPINE LUMBAR OR SACRAL performed by Quincy Prado DO at OR [facility] MARLI CAT,W/O PUMP;5YR/OLD N/A 11/04/2019 INSERT TUNNELED CENTRAL VENOUS CATHETER AGE 5 OR OLDER performed by Ortega Montez DO at OR [facility] MARLI CAT,W/O PUMP;5YR/OLD Right 03/09/2023 INSERT TUNNELED CENTRAL VENOUS CATHETER AGE 5 OR OLDER performed by Fred Brown MD at OR [facility] INTRO CATH DIALYSIS CIRCUIT W/TRANSLUM BALLOON ANGIOPLASTY Right 03/09/2023 AV FISTULOGRAM & PERIPHERAL ANGIOPLASTY performed by Fred Brown MD at OR [facility] LIGATE/CUT OVIDUCT(S) MISCELLANEOUS ORDER ([facility] [...] Social History Narrative Merged History 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 Review of Systems: obtained mostly from staff Constitutional ROS: No change in weight, + weakness, + fatigue and No fevers, sweats, or chills Nose ROS: No nasal stuffiness and No significant epistaxis Mouth/Throat ROS: No thrush or No sore throat Neck ROS: No lumps or masses, No swollen glands, No recent swelling in thyroid area and No significant pain in neck Pulmonary ROS: see HPI Cardiovascular ROS: see HPI Gastrointestinal ROS: No abdominal pain, No change in bowel habits, No significant change in appetite, No nausea, vomiting, diarrhea, or constipation and No dysphagia Skin/Integumentary ROS: No rash and No itching Neurologic ROS: PD rigidty and masked face Psychiatric ROS: No depression, + anxiety and No psychosis + dementia Sleep: RENÉ OBJECTIVE: PHYSICALEXAM: I reviewed the most recent facilities vitals. General: more lethargic mild distress, well nourished and well developed Eye [...] and rhythm, no chest wall tenderness, lungs coarse sounds with rhonchi noted melania in bases Abdomen: abdomen soft, non-tender, normal bowel sounds and no masses or organomegaly Extremities: no edema, no clubbing, no cyanosis Neuro Exam: lethargic , unable to obtain reliable neuro exam due to lethargy Skin: skin color, texture, turgor are normal, no rashes or significant lesions ASSESSMENT: Influenza A (Primary) Will give Tamiflu 30mg now Will dose Tamiflu 30mg after each dialysis session as directed Duonebs routine and prn as directed Siltussin prn as directed Solu medrol 125mg IM now Will begin prednisone course tomorrow 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HCC) Continue Sinemet as directed Contniue Lexapro as directed ESRD (end stage renal disease) on dialysis (HCC) Continue renal cap and auyrxia as directed Steatohepatitis, non-alcoholic COPD, group B, by GOLD 2017 classification (HCC) Continue Breo Ellipta as directed Chronic heart failure with preserved ejection fraction (HCC) Stable no active CHF currently PLAN: Pt high risk. May need to send to ED if no improvement or if condition worsens and Continue presentmedication(s):as ordered. Fdc Home Treatment Given: as above Electronically signed by: Nae Rodriges PA-C Over 45 minutes were spent in this visit more than half the time was spent counselling or coordinating care. Cosigned by Howie Gilbert MD at 05/06/2024 3:39 PM EST documented in this encounter Plan [...] Rectal bleeding Hemorrhage of rectum and anus Influenza A- Primary Influenza with other respiratory manifestations 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HCC) ESRD (end stage renal disease) on dialysis (HCC) End stage renal disease Steatohepatitis, non-alcoholic Other chronic nonalcoholic liver disease COPD, group B, by GOLD 2017 classification (HCC) Chronic heart failure with preserved ejection fraction (HCC) documented in this encounter Advance Directives Documents on File Type Date Recorded Patient Management Services Technician Expl anation Power of Website Optimization Strategist 12/16/2018 10:33 AM Wesley Schmitt Power of Website Optimization Strategist - Medical Low Pg 6 - signed [...] Age nt (per Health Care Power of Website Optimization Strategist document) Carmen Cabins Adult Child Health Care Agen t (per Health Care Power of Website Optimization Strategist document) Jeanne Schmitt Adult Child Health Care Agen t (per Health Care Power of Website Optimization Strategist document) Care Teams Claim Technician Relationship Specialty Start Date End Date Howie Gilbert MD [address] [place] [address] [place] [address] PCP - General Family Medicine 11/14/23 documented as of this encounter
[2024-05-22] MEDS: CEFEPIME 1000MG 1,000 MG/10 ML SYR IV SCH (05:18)
[2024-05-22] MEDS: LEVOTHYROXINE SODIUM 125 MCG TABLET PO SCH (06:33)
[2024-05-22] MEDS: ALBUT/IPRATROP 3MG/0.5MG NEB 3 ML VIAL INH SCH (06:53)
--- OUTSIDE RECORDS SUMMARY | 2024-05-22 08:04 | External Medical Summary | Summary of Care ---
Author Name Unknown Organization [facility] Address [address] [place] [address] Phone [phone] Care Team Providers Care Product Support Consultant Name Role Phone Howie Gilbert MD Primary Care Provide r Reason for Visit * Reason Onset Date Comments Retirement Visit - Readmission 05/21/2024 Encounter Details Date Type Department Care Team (Latest Contact Info) Description 05/20/2024 10:30 AM EST Retirement Visit [facility] [address] [place] [address] Nae Rodriges PA-C [address] [place] [address] Acute on chronic respiratory failure with hypoxia and hypercapnia (HCC)*; Influenza A; Multifocal pneumonia; ESRD (end stage renal disease) on dialysis (HCC); 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HCC); Hypothyroidism due to acquired atrophy of thyroid; Anemia in end-stage renal disease (HCC) Allergies No known active allergiesdocumented as of this encounter (statuses as of 05/21/2024) Medications ONETOUCH DELICA LANCETS 33G MISC Up to 4 times daily 100 Each 6 11/25/19 15 Active Glucose Blood (ONETOUCH ULTRA BLUE) STRP Use as directed 4 times a day as needed (Diabetes). Use up to four times a day as directed 100 Strip 11 02/04/20 18 Active Nebulizers (NEBULIZER COMPRESSOR) MISCIndications:CO PD, group B, by GOLD 2017 classification ([facility]) Inhale via nebulizer. Use as [...] )Indications:COPD, group B, by GOLD 2017 classification ([facility]) Inhale by mouth 1 Puff [...] 10:42 AM EST 11/10/19 23 Active Nystatin 934578 UNIT/GM External Powder (Nystop) Apply topically to affected area 2 times a day. 60 g 5 02/13/2023 10:42 AM EST 11/10/19 Active Pantoprazole Sodium 20 MG Oral Tablet [...] night at bedtime. 30 Tablet 11/04/19 Active Carbidopa-Levodopa 25-100 MG Oral Tablet [...] as of this encounter (statuses as of 05/21/2024) Active Problems Problem Noted Date Diagnosed Date [...] as of this encounter (statuses as of 05/21/2024) Resolved Problems Problem Noted Date Diagnosed Date [...] as of this encounter (statuses as of 05/21/2024) Immunizations Name Administration Dates Next Due COVID-19 mRNA, LNP-s, No Pre serve, 2-Dose Series ([employer]) 01/02/2021,06/21/2020,05/24/2020 COVID-19, mRNA, LNP-s, PF, B ooster, [...] Progress Notes * Nae Rodriges PA-C - 05/21/2024 10:20 AM EST READMISSION NOTE TRANSITION EVENT: Type: Readmission to SNF from Hospital Date: May 20 Code Status: Full Code Subjective: Kami Hassan is a 78 year old female. Date of : 1945 Chief Complaint Patient presents with Retirement Visit - Readmission This note pertains to care provided at [facility]. Please see facility medical record for original note. This note is not to be edited or addended in [employer]. Editing or addending needs to occur in the facilities medical record. S: Kami Hassan has been readmitted to [facility] from [facility] for correction care. Pt who is LTC resident at [facility], ,with hx of ESRD on dialysis three days weekly, anemia of ERSD, dementia, PD, hypothyroidism, COPD, RENÉ on CPAP (pt frequently refuses) was transferred to [facility] ED on 05/06/24 to one day history of dyspnea, spiking fever, chills, weakness and increased confusion despiteRx at SNF. Pt was confirmed to test positive for Influenza A at [facility] on day of transfer to ED. CT chest revealed subtle patchy opacities in posterior right upper lobe, superior and medial basal segment of RLL. Also opacities ANGEL LUIS and LLL. Biofire confirmed Influenza A. Procalcitonin 2.4. MRSA nasal positive. Blood and urine C&S no growth. Pt required intubation in the ED which was removedon 05/09/24 when she became more stable. She required pressors to maintain CV status. She completed treatment with Tamiflu and begun on Zosyn and Vancomyin later transitioned to Rocephin and Doxycycline. Pt's troponins were elevated determined to be due demand ischemia. Echocardiogram showed LVEF 50 to55%. Moderate MR, mild TR. Mild . Speech Therapy consult was obtained. Video swallow showed no evidence of aspiration. GI consult obtained. Recommended to continue with aspiration precautions and continue renal diet, mechanical soft,regular liquid consistency. Nephrology consult was obtained and managed pt's dialysis. Pt is now readmitted back to [facility] for LTC Pt is confused and disoriented to place and time. Could be delirium. Vital signs stable. Will continue to reorient as needed. Past Medical History: Patient Active Problem List [...] COPD, group B, by GOLD 2017 classification ([facility]) Chronic heart failure with preserved ejection fraction (HCC) Iron deficiency anemia due to chronic blood loss Diabetes mellitus with ESRD (end-stage renal disease) ([facility]) Personal history of fall History of CVA (cerebrovascular accident) AVF (arteriovenous fistula) ([facility]) 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HCC) Acquired hypothyroidism ESRD (end stage renal disease) on dialysis (HCC) 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) Morbid (severe) obesity due to excess calories ([facility]) Full code status History of colon polyps Sinus bradycardia Orthostatic hypotension History of 2019 novel coronavirus disease (COVID-19) Current moderate episode of major depressive disorder ([facility]) Influenza A Past Medical History: Diagnosis Date (HFpEF) heart failure with preserved ejection fraction ([facility]) Acute on chronic diastolic (congestive) heart failure ([facility]) 03/04/2020 [facility] Allergic rhinitis 02/15/2000 acute BMI 38.0-38.9,adult 08/28/2009 Chronic Sinusitis Unspecified Controlled substance agreement signed 11/25/2016 COVID-19 10/23/2021 Cystitis 05/23/2022 admitted [facility] home on cefuroxime Dyslipidemia, goal LDL below 100 Esophagitis determined by biopsy 04/19/2022 LA grade B esophagitis, inflammation gastric antrum, body and duodenum AYSHA (generalized anxiety disorder) Hearing loss, sensorineural 01/2005 History of non-ST elevation myocardial infarction (NSTEMI) 08/24/2018 HTN (hypertension) Meniere's disease Multiple falls 04/20/2019 History of falls on the pl NSTEMI (non-ST elevated myocardial infarction) ([facility]) 09/03/2018 Parkinson disease ([facility]) Rectal bleeding Restless leg syndrome 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 factor ([facility]) 07/18/2016 SDH (subdural hematoma) ([facility]) 04/20/2019 acute Serrated polyp of colon 09/20/2022 7 mm descending colon Sleep apnea Tinnitus 01/2005 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 Del Real CARPAL TUNNEL SURGERY Bilateral COLONOSCOPY, DIAGNOSTIC (RECTUM) 11/27/2015 normal, repeat 10 yrs/COLONOSCOPY FLEXIBLE PROXIMAL DIAGNOSTIC performed by Garrett Chang MD at ENDOSCOPY [facility] COLONOSCOPY, DIAGNOSTIC (RECTUM) 09/20/2022 serrated polyp, fair prep / [facility] EGD, FLEXIBLE, DIAGNOSTIC 04/19/2022 esophagitis, repeat 8-12 wks / [facility] EGD, FLEXIBLE, DIAGNOSTIC 06/26/2022 normal, retained food / [facility] EGD, FLEXIBLE, DIAGNOSTIC N/A 01/24/2023 normal/EGD/[place] EXPLORATION OF MAXILLARY SINUS 03/17/1995 Sinus Surgery HYSTEROSCOPY,DIAGNOSTIC 2022 atrophic endometrium, endometrial polyp INJECTION LUMBAR/SACRAL 07/31/2015 INJECTION SPINE LUMBAR OR SACRAL performed by Quincy Prado DO at OR [facility] INJECTION LUMBAR/SACRAL 08/15/2015 INJECTION SPINE LUMBAR OR SACRAL performed by Quincy Prado DO at OR [facility] MARLI CAT,W/O PUMP;5YR/OLD N/A 11/04/2019 INSERT TUNNELED CENTRAL VENOUS CATHETER AGE 5 OR OLDER performed by Ortega Montez DO at OR [facility] INSER MARLI CAT,W/O PUMP;5YR/OLD Right 03/09/2023 [...] Social History Narrative 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 History 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 Social Needs Financial Resource Strain: Not on [...] Review of Systems: obtained from pt and mostly staff Constitutional ROS: No change in weight, [...] cough, sputum, or hemoptysis, No wheezing, No current shortness of breath and No recent change in breathing Cardiovascular ROS: No chest pain, No current shortness of breath, No edema, No palpitations and Nosyncope Gastrointestinal ROS: No abdominal pain, No change in bowel habits, No significant change in appetite, No nausea, vomiting, diarrhea, or constipation and No dysphagia Skin/Integumentary ROS: No rash and No itching Neurologic ROS: +PD Psychiatric ROS: No depression, No anxiety and No psychosis +dementia Sleep: No sleep disorders ADL skills dependent Ambulates non ambulating OBJECTIVE: PHYSICAL EXAM: I reviewed the most recent facilities vitals. Refer to vital signs flowsheet in [facility] chart. General: alert, no distress, well nourished [...] all extremities with good strength ASSESSMENT: Acute on chronic respiratory failure with hypoxia and hypercapnia (HCC) (Primary) Reviewed [facility] notes Pt currently stable Continue O2 as directed Influenza A Completed treatment Clinically stable Multifocal pneumonia Completed antibiotic course Will follow ESRD (end stage renal disease) on dialysis (HCC) Continue dialysis as directed 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[facility]) Stable mood and PD Mentation appears more confused Could be delirium Will continue to reorient patient Hypothyroidism due to acquired atrophy of thyroid Stable Continue Levoxyl as directed Anemia in end-stage renal disease ([facility]) Stable Followed by nephrology PLAN: 1. Continue present medication(s): 2. Admission orders, medications, labs, hospital records and care plan reviewed. 3. Continue current treatment plan as ordered. 4. Care plan reviewed. 5. Advanced Directives were discussed: Full Code 6. Half-Way Home Treatment Given: as above Total time spent with patient, 50 minutes with over half time spent reviewing [facility] notes, scans, consults, and planning of care documented in this [...] COPD, group B, by GOLD 2017 classification ([facility]) Iron deficiency anemia due to [...] COPD, group B, by GOLD 2017 classification ([facility]) RENÉ on CPAP Obstructive sleep [...] bleeding Hemorrhage of rectum and anus Acute on chronic respiratory failure with hypoxia and hypercapnia (HCC)- Primary Influenza A Influenza with other respiratory manifestations Multifocal pneumonia ESRD (end stage renal disease) on dialysis (HCC) End stage renal disease 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HCC) Hypothyroidism due to acquired atrophy of thyroid Anemia in end-stage renal disease (HCC) Anemia in chronic kidney disease documented in this encounter Advance Directives Documents on File Type Date Recorded Patient Statistical Methods Teacher Expl anation Power of Windows Phone Developer 12/16/2018 10:33 AM Wesley Schmitt Power of Windows Phone Developer - Medical Low Pg 6 - [...] Age nt (per Health Care Power of Windows Phone Developer document) Carmen Hughes Adult Child Health Care Agen t (per Health Care Power of Windows Phone Developer document) Jeanne Schmitt Adult Child Health Care Agen t (per Health Care Power of Windows Phone Developer document) Care Teams Product Support Consultant Relationship Specialty Start Date End Date Howie Gilbert MD [address] [place] [address] [place] [address] PCP - General Family Medicine 11/14/23 documented as of this encounter
[2024-05-22] MEDS: CARBIDOPA/LEVODOPA 25/100MG TAB PO SCH (09:31)
[2024-05-22] MEDS: PANTOprazole 40 MG TAB PO SCH (09:32)
[2024-05-22] MEDS: FLUTICASONE/VILANTEROL 200/25MCG 14 PUFFS/INHALER INH SCH (09:32)
--- NOTE | 2024-05-22 12:08 | Hospitalist Progress Note ---
Date of Service May 22, 2024 Assessment & Plan (1) Chest pain: (2) Volume overload: (3) Acute respiratory failure with hypoxia: (4) End-stage renal disease (ESRD): (5) Lethargy: Plan: 78-year-old female with history of end-stage renal disease, Parkinson's, hypothyroidism, obstructive sleep apnea, orthostatic hypotension presenting with chest pain, hypoxia, confusion while at dialysis. Pt refusing IV replacement on 05/22- labs unable to be drawn. Agreeable to trial later in the day. Chest pain Pneumonitis Occurred during hemodialysis earlier today Chest pain-free while at the ER Initial troponins 40, downtrended EKG no signs of acute ischemia or infarct Echocardiogram with EF 50-55%, septal motion consistent with conduction abnormality and mild LVH CT angio without PE but notes a pneumonitis respiratory biofire negative Procal elevated MRSA nares pending Blood cx NGTD On Cefepime and IV solumedrol Acute hypoxic respiratory failure Likely volume overload from ESRD Discharged from the hospital yesterday after being admitted for acute respiratory failure secondary to multifocal pneumonia, influenza A ABG:pH 7.4, pCO2 50, bicarb 33 Chest x-ray today showing CHF pattern CTA chest with pneumonitis above BioFire negative Continue CPAP for now Dr. Baig notified, for HD on 05/[address] head no acute process ABG unremarkable Likely secondary to above UA uncollected Blood Cx NGTD Delirium precautions. Frequent reorientation, avoid sedating medications as able Baseline dementia, [facility] Continue to monitor closely Other chronic medical conditions: Parkinson disease Hypothyroidism Obstructive sleep apnea Orthostatic hypotension-continue midodrine DVT prophylaxis: SCDs, heparin SQ Disposition: Lives at [facility]. PT/OT for further recs Admission and Anticipated Discharge Date Admission Date: May 21, 2024 Subjective pt was seen laying in bed States that she absolutely does not want an IV replaced since her left sided one was bad and cannot have labs done but will think about it and might allow placement of IV later in the day- [facility] Review of Systems Review of Systems: All systems reviewed & are unremarkable except as noted in Subjective Physical Exam Physical Exam: General: Alert,No acute distress Neuro: [facility] HEENT: NC/AT CV: RRR Resp: Breath sounds clear bilaterally, no increased effort of breathing Abdomen:Soft, nontender Extremities: No edema in lower extremities bilaterally. Results & Data Results & Data Vital Signs (Past 12 Hours) Vital Signs Temp Pulse Pulse Resp BP Pulse Ox O2 Del Method 05/22/24 10:58 37.2 C 70 18 103/63 91 Room Air 05/22/24 07:18 37.0 C 62 18 99/57 L 93 Room Air 05/22/24 06:55 68 18 98 Room Air 05/22/24 03:17 36.4 C L 57 L 19 129/74 100 CPAP 05/22/24 02:15 61 12 100 O2 Flow Rate 05/22/24 10:58 05/22/24 07:18 05/22/24 06:55 05/22/24 03:17 05/22/24 02:15 2
--- NOTE | 2024-05-22 15:27 | Nephrology Progress Note ---
Date of Service May 22, 2024 Assessment & Plan (1) ESRD (end stage renal disease) on dialysis: Plan: Started on dialysis Friday. Dialysis has been a challenge due to hypotension. She had dialysis yesterday. Will continue midodrine with dialysis. Next dialysis will be Friday (2) Acute encephalopathy: Plan: likely metabolic encephalopathy. Mental status has improved (3) Acute respiratory failure with hypoxia: Plan: probably multifactorial with recent influenza as well as CHF and encephalopathy. respiratory status has improved after dialysis. Will continue monitor and dialyze as needed if more hypoxic. Admission and Anticipated Discharge Date Admission Date: May 21, 2024 Subjective Seen for ESRD. She feels better today. No shortness of breath or chest pain. No leg swelling. Review of Systems 2 Review of Systems: All other systems were reviewed and negative except as noted in HPI Physical Exam 2 Physical Exam: General exam: Appears comfortable, no acute distress HEENT: Pupils are equal and reactive to light Neck: No JVD, neck is supple trachea is midline Respiratory system: Clear breath sounds bilaterally. Gastrointestinal: Abdomen is soft, non distended, non tender, bowel sounds are present CVS: Regular rate and rhythm. No murmurs, rubs or gallops Musculoskeletal: No joint or muscle tenderness Extremities: Non tender, no edema, peripheral pulses are present Neuro: Oriented, no tremors, no focal neurological deficits Skin: No rashes Results & Data Vital Signs (Past 12 Hours) Vital Signs Temp Pulse Pulse Resp BP Pulse Ox O2 Del Method 05/22/24 13:51 62 05/22/24 13:21 71 18 96 Room Air 05/22/24 10:58 37.2 C 70 18 103/63 91 Room Air 05/22/24 07:18 37.0 C 62 18 99/57 L 93 Room Air 05/22/24 06:55 68 18 98 Room Air Laboratory Results 05/21/24 11:25
[2024-05-22] MEDS ORDERED: POLYETHYLENE (MIRALAX) 17 GM PACK PO PRN (17:06)
[2024-05-22] MEDS: ATORVASTATIN 40 MG TAB PO SCH (20:06)
[2024-05-22] MEDS: HEPARIN SOD 5,000 UNIT/0.5 ML VIAL SQ SCH (20:34)
[2024-05-22] MEDS: MELATONIN 3 MG TAB PO PRN (22:36)
[2024-05-23] MEDS: ONDANSETRON INJ 2 MG/ML 2 ML VIAL IV PRN (09:38)
--- NOTE | 2024-05-23 09:56 | Hospitalist Progress Note ---
Date of Service May 23, 2024 Assessment & Plan (1) Chest pain: (2) Volume overload: (3) Acute respiratory failure with hypoxia: (4) End-stage renal disease (ESRD): Plan 78-year-old female with history of end-stage renal disease, Parkinson's, hypothyroidism, obstructive sleep apnea, orthostatic hypotension presenting with chest pain, hypoxia, confusion while at dialysis. Pt refusing IV replacement on 05/22- labs unable to be drawn. Agreeable to trial later in the day. 05/23/24- Discussion with multiple times over the phone...agreeable to palliative care consult given pt's refusal of care and multiple admissions with more frequent need for dialysis. Palliative Care consult placed, appreciate further recs She is currently being treated for the following: Chest pain Pneumonitis Occurred during hemodialysis earlier today Chest pain-free while at the ER Initial troponins 40, downtrended EKG no signs of acute ischemia or infarct Echocardiogram with EF 50-55%, septal motion consistent with conduction abnormality and mild LVH CT angio without PE but notes a pneumonitis respiratory biofire negative Procal elevated MRSA nares negative Blood cx NGTD On Cefepime, doxycycline and IV solumedrol Continue to monitor Acute hypoxic respiratory failure Likely volume overload from ESRD Discharged from the hospital yesterday after being admitted for acute respiratory failure secondary to multifocal pneumonia, influenza A ABG:pH 7.4, pCO2 50, bicarb 33 Chest x-ray today showing CHF pattern CTA chest with pneumonitis above BioFire negative Continue CPAP for now HD on 05/21 Appreciate Nephrology recs Lethargy Encephalopathy CT head no acute process ABG unremarkable Likely secondary to above UA uncollected Blood Cx NGTD Delirium precautions. Frequent reorientation, avoid sedating medications as able Baseline dementia, [place] Continue to monitor closely Other chronic medical conditions: Parkinson disease Hypothyroidism Obstructive sleep apnea Orthostatic hypotension-continue midodrine Diet: Dialysis Renal, Easy to chew DVT prophylaxis: SCDs, heparin SQ Disposition: Lives at [facility]. PT/OT for further recs Admission and Anticipated Discharge Date Admission Date: May 21, 2024 Subjective pt was seen in the AM initially refusing labs and heparin shots Discussion with multiple times over the phone...agreeable to palliative care consult given pt's refusal of care and multiple admissions with more frequent need for dialysis. Review of Systems Review of Systems: All systems reviewed & are unremarkable except as noted in Subjective Physical Exam Physical Exam: General: Alert,No acute distress Neuro: [place] HEENT: NC/AT CV: RRR Resp: Breath sounds clear bilaterally, no increased effort of breathing Abdomen:Soft, nontender Extremities: No edema in lower extremities bilaterally. Results & Data Results & Data Vital Signs (Past 12 Hours) Vital Signs Temp Pulse Pulse Resp BP Pulse Ox O2 Del Method 05/23/24 07:24 76 21 99 CPAP 05/23/24 07:16 36.7 C 67 18 124/54 L 97 BiPAP 05/23/24 04:04 36.6 C 70 18 108/63 98 CPAP 05/23/24 03:50 18 98 05/22/24 23:46 37.0 C 72 18 95/57 L 99 CPAP 05/22/24 23:32 76 20 98 BiPAP 05/22/24 22:45 76 22 98 05/22/24 21:46 72 O2 Flow Rate FiO2 05/23/24 07:24 2 05/23/24 07:16 05/23/24 04:04 05/23/24 03:50 2 05/22/24 23:46 05/22/24 23:32 05/22/24 22:45 2 05/22/24 21:46 Diagnostic Findings Chest X-Ray 05/21/24 11:32 XR chest 1V portable CLINICAL HISTORY: Chest pain, nonspecific COMPARISON STUDY: 05/17/2024 FINDINGS: Stable prominent cardiomegaly with mild pulmonary vascular congestion. There is mild pulmonary interstitial prominence. No lobar consolidation or pleural effusion. No pneumothorax. IMPRESSION: CHF. ACT 112: Negative or not required by law. Electronically signed by: Zurdo Sanchez M.D. 05/21/2024 12:[address] 05/21/24 12:08 CT head/brain wo con CLINICAL HISTORY: AMS. TECHNIQUE: Multiple axial CT images of the head were obtained without contrast. A dose lowering technique was utilized adhering to the principles of ALARA. CT DOSE: 625.8 mGy.cm COMPARISON: 02/17/2024. FINDINGS: No intracranial hemorrhage seen. No mass effect, midline shift, or hydrocephalus. Stable mild chronic small vessel ischemic changes. There is mucosal thickening at the right maxillary sinus and the left sphenoid sinus. No skull fracture seen. IMPRESSION: No acute findings. ACT 112: Negative or not required by law. The above report was generated using voice recognition software. It may contain grammatical, syntax or spelling errors. Electronically signed by: Zurdo Sanchez M.D. 05/21/2024 1:50 PM Chest CTA 05/21/24 15:03 EXAM: CT Angiography Chest With Intravenous Contrast INDICATION: Chest pain TECHNIQUE: Axial computed tomographic angiography images of the chest with intravenous contrast. Sagittal and coronal reformatted images were created and reviewed. This CT exam was performed using one or more of the following dose reduction techniques: automated exposure control, adjustment of the mA and/or kV according to patient size, and/or use of iterative reconstruction technique. MIP reconstructed images were created and reviewed. CONTRAST: 115ml of Optiray 320 was administered intravenously. COMPARISON: 01/30/2020 FINDINGS: Pulmonary arteries: No abnormality noted. No pulmonary embolism. Aorta: Atherosclerotic calcification of the aorta and branches. No aneurysm. Lungs and pleural spaces: Scattered groundglass opacity throughout the lungs noted relatively sparing the left upper lobe. No confluent consolidation. No bronchiectasis, honeycombing or reticulation. No significant effusion. No pneumothorax. Heart: Stable marked cardiomegaly. No right heart strain or pericardial effusion. Bones/joints: No acute or atypical chronic changes. Soft tissues: No abnormality noted. Lymph nodes: No abnormality noted. No enlarged lymph nodes. IMPRESSION: 1. No pulmonary embolus noted. 2. Multifocal groundglass infiltrates in both lungs typical of nonspecific pneumonitis. ACT 112: N/A Electronically signed by Hyun Valderrama 05-21-2024 4:31 PM
[2024-05-23 12:57] LABS: Hemoglobin 9.9 g/dl (12.0-16.0); Mean Corpuscular Hgb Conc 31.9 g/dL (32.0-36.0); Mean Corpuscular Volume 106.5 fL (80.0-100.0); Platelet Count 259 K/uL (130-400); RDW Coefficient of Variation 17.5 % (11.5-14.5); RDW Standard Deviation 64.1 fL (36.4-46.3); Red Blood Count 2.91 M/uL (4.20-5.40); White Blood Count 14.46 K/ul (4.8-10.8)
[2024-05-23 13:12] LABS: Anisocytosis Present; Basophilic Stippling 1+; Basophils # (auto) 0.05 K/uL (0.00-0.20); Basophils % (auto) 0.3 %; Immature Granulocytes # (auto) 0.24 K/uL (0.01-0.20); Immature Granulocytes % (auto) 1.7 %; Lymphocytes # (auto) 0.41 K/uL (1.20-3.40); Lymphocytes % (auto) 2.8 %; Macrocytosis Present; Monocytes % (auto) 4.1 %; Neutrophils # (auto) 13.16 K/uL (1.40-6.50); Neutrophils % (auto) 91.1 %; Polychromasia 1+
--- NOTE | 2024-05-23 13:15 | Nephrology Progress Note ---
Date of Service May 23, 2024 Assessment & Plan (1) ESRD (end stage renal disease) on dialysis: Plan: Patient on dialysis Friday. Dialysis has been a challenge due to hypotension. She had dialysis Friday. Will continue midodrine with dialysis. Next dialysis will be Friday (2) Acute encephalopathy: Plan: likely metabolic encephalopathy. Mental status has improved (3) Acute respiratory failure with hypoxia: Plan: probably multifactorial with recent influenza as well as CHF and encephalopathy . respiratory status has improved after dialysis. Will continue monitor and dialyze as needed if more hypoxic. Admission and Anticipated Discharge Date Admission Date: May 21, 2024 Subjective seen for ESRD. No shortness of breath. No leg swelling. Review of Systems Review of Systems: All other systems were reviewed and negative except as noted in HPI Physical Exam Physical Exam: General exam: Appears comfortable, no acute distress HEENT: Pupils are equal and reactive to light Neck: No JVD, neck is supple trachea is midline Respiratory system: Clear breath sounds bilaterally. Gastrointestinal: Abdomen is soft, non distended, non tender, bowel sounds are present CVS: Regular rate and rhythm. No murmurs, rubs or gallops Musculoskeletal: No joint or muscle tenderness Extremities: Non tender, no edema, peripheral pulses are present Neuro: Oriented, no tremors, no focal neurological deficits Skin: No rashes Results & Data Vital Signs (Past 12 Hours) Vital Signs Temp Pulse Resp BP Pulse Ox O2 Del Method O2 Flow Rate 05/23/24 11:39 36.8 C 77 18 105/61 96 Room Air 05/23/24 07:24 76 21 99 CPAP 2 05/23/24 07:16 36.7 C 67 18 124/54 L 97 BiPAP 05/23/24 04:04 36.6 C 70 18 108/63 98 CPAP 05/23/24 03:50 18 98 2 Laboratory Results 05/23/24 12:39 WBC 14.46 H RBC 2.91 L MCV 106.5 H MCH 34.0 MCHC 31.9 L RDW Std Deviation 64.1 H RDW Coeff of Bhavin 17.5 H Plt Count 259 MPV 11.0
[2024-05-23 13:38] LABS: Albumin Globulin Ratio 1.2 (0.9-2); Albumin Level 3.8 gm/dl (3.4-5.0); BUN Creatinine Ratio 4.5 (10-20); Bilirubin,Total 0.4 mg/dl (0.2-1.0); Calcium 9.8 mg/dl (8.6-10.3); Creatinine Clr Calc Pharmacy 8.8 ml/min; Globulin 3.3 gm/dl (2.5-4.0); Magnesium 1.7 mg/dl (1.7-2.4); Potassium 4.1 mmol/L (3.5-5.1); Total Protein 7.1 gm/dl (6.0-8.3)
[2024-05-23] MEDS: ADVANCED PROBIOTIC 625 MG CAPSULE PO SCH (18:31)
[2024-05-23] MEDS: DOXYCYCLINE HYCLATE 100 MG CAP PO SCH (20:38)
[2024-05-24 06:28] LABS: Basophils # (auto) 0.07 K/uL (0.00-0.20); Basophils % (auto) 0.5 %; Hematocrit (blood only) 28.6 % (37.0-47.0); Hemoglobin 9.5 g/dl (12.0-16.0); Immature Granulocytes # (auto) 0.26 K/uL (0.01-0.20); Lymphocytes # (auto) 0.82 K/uL (1.20-3.40); Lymphocytes % (auto) 6.2 %; Mean Corpuscular Hemoglobin 34.8 pg (25.0-34.0); Mean Corpuscular Hgb Conc 33.2 g/dL (32.0-36.0); Mean Corpuscular Volume 104.8 fL (80.0-100.0); Mean Platelet Volume 11.4 fL (9.4-12.4); Monocytes # (auto) 1.37 K/uL (0.11-0.59); Monocytes % (auto) 10.3 %; Neutrophils # (auto) 10.79 K/uL (1.40-6.50); Platelet Count 282 K/uL (130-400); RDW Standard Deviation 61.3 fL (36.4-46.3); Red Blood Count 2.73 M/uL (4.20-5.40); White Blood Count 13.31 K/ul (4.8-10.8)
[2024-05-24] MEDS: ASPIRIN 81 MG ECTAB PO SCH (06:36)
[2024-05-24 07:07] LABS: Albumin Globulin Ratio 1.2 (0.9-2); Albumin Level 3.6 gm/dl (3.4-5.0); BUN Creatinine Ratio 4.9 (10-20); Bilirubin,Total 0.4 mg/dl (0.2-1.0); Calcium 9.4 mg/dl (8.6-10.3); Magnesium 1.6 mg/dl (1.7-2.4); Total Protein 6.6 gm/dl (6.0-8.3)
--- NOTE | 2024-05-24 09:37 | Palliative Care Consultation ---
Date of Consultation May 24, 2024 Assessment & Plan (1) Palliative care by specialist: (2) Counseling regarding goals of care: (3) Advance directive in chart: Patient has exhibited current lack of decisional capacity based on the inability to convey understanding of personal PMHx, current medical condition, treatment options nor the risks / benefits of those options, and lack of ability to make decisions based on such knowledge. Hospital does have written documentation of patient wishes concerning her chosen proxy for medical decisions. AD paperwork on file which was properly executed by patient on 07/27/2001 designates 1. patient's spouse Wesley Hassan as primary HCPOA and 2. Irma Hughes; 3. Kenia Raymond or 4. Jeanne Schmitt as back up HCPOA for all medical decisions in the event she lacks decisional capacity. Pt does require a proxy for medical decisions. Phone contact made with pt's HCPOA/spouse Wesley, planned meeting to discuss GOC for tomorrow. Plan continue current level of care GOC meeting planned with spouse for 05/25/24 at 1230 History of Present Illness Reason for Consultation: GOC, refusing labs/meds, more freq dialysis need Requesting Physician: Maranda Benton MD Attending Physician: Maranda Benton MD History of Present Illness Ms. Hassan is a 78y female withPMHx including HD dependent ESRD, Parkinson's, hypothyroidism, obstructive sleep apnea, orthostatic hypotension presenting with chest pain, hypoxia, confusion while at dialysis on 05/21. Patient had been discharged that day before after being treated for acute hypoxic respiratory failure secondary to multifocal pneumonia, influenza A, requiring intubation. She completed the course of antibiotics and was discharged on room air. She was brought to ED after developing CP/hypoxia/AMS at dialysis. Allergies Allergy/AdvReac Type Severity Reaction Status Date / Time No Known Allergies Allergy Verified 05/06/24 20:04 Home Medications Medication Instructions Recorded Confirmed Type aspirin 81 mg tablet,delayed 162 mg PO 3XWK 11/15/21 05/21/24 History release atorvastatin 80 mg tablet 80 mg PO QPM 11/15/21 05/21/24 History carbidopa 25 mg-levodopa 100 mg 1 tab PO TIDM 11/15/21 05/21/24 History tablet docusate sodium 100 mg capsule 100 mg PO DAILY 11/15/21 05/06/24 History (Colace) levothyroxine 125 mcg tablet 125 mcg PO QAM 11/15/21 05/21/24 History pregabalin 100 mg capsule 100 mg PO BID 11/15/21 05/06/24 History pantoprazole 20 mg tablet,delayed 20 mg PO BID 05/23/22 05/21/24 History release epinephrine 0.3 mg/0.3 mL 0.3 mg IM DIRECTED PRN 09/05/22 05/06/24 History injection, auto-injector (EpiPen) Anaphylaxis melatonin 10 mg tablet 10 mg PO HS 09/05/22 05/06/24 History ferric citrate 210 mg iron tablet 420 mg PO WM 01/21/23 05/06/24 History (Auryxia) fluticasone furoate 200 1 inh inhalation AMHS 01/21/23 05/21/24 History mcg-vilanterol 25 mcg/dose inhalation powder (Breo Ellipta) cholecalciferol (vitamin D3) 25 25 mcg PO DAILY 10/27/23 05/06/24 History mcg (1,000 unit) capsule vitamin B complex-vitamin C-folic 1 tab PO DAILY 10/27/23 05/06/24 History acid 0.8 mg tablet (Nanci-Samuel) acetaminophen 325 mg tablet 325 - 650 mg PO Q6 PRN MILD-SEVERE 05/06/24 05/06/24 History PAIN acetaminophen 500 mg tablet 500 mg PO QID 3G 05/06/24 05/06/24 History dextromethorphan-guaifenesin 10 2.5 ml PO Q4 PRN Cough 05/06/24 05/06/24 History mg-200 mg/5 mL oral liquid diclofenac sodium 1 % topical gel 2 g topical QID 05/06/24 05/06/24 History escitalopram oxalate 10 mg tablet 10 mg PO QAM 05/06/24 05/06/24 History ferric citrate 210 mg iron tablet 210 mg PO . NEEDED PRN WITH 05/06/24 05/06/24 History (Auryxia) SNACKS guaifenesin 100 mg/5 mL oral 200 mg PO Q4H PRN Cough 05/06/24 05/06/24 History liquid (Siltussin SA) ipratropium 0.5 mg-albuterol 3 mg 3 ml inhalation Q4 PRN Wheezing 05/06/24 05/06/24 History (2.5 mg base)/3 mL nebulization soln ipratropium 0.5 mg-albuterol 3 mg 3 ml inhalation TID 05/06/24 05/21/24 History (2.5 mg base)/3 mL nebulization soln lidocaine-prilocaine 2.5 %-2.5 % 1 applic topical 3XWK 05/06/24 05/06/24 History topical cream midodrine 5 mg tablet 5 mg PO UD 05/06/24 05/06/24 History ondansetron HCl 4 mg tablet 4 mg PO Q6H PRN Nausea And Vomiting 05/06/24 05/06/24 History sertraline 25 mg tablet 25 mg PO UD 05/06/24 05/06/24 History sertraline 50 mg tablet 50 mg PO QAM 05/06/24 05/06/24 History Patient History Medical History ESRD on hemodialysis Thickened endometrium Acute ischemic stroke NSTEMI (non-ST elevated myocardial infarction) Elevated troponin I level AV fistula R arm Limb alert care status R arm History of recent hospitalization d/c 09/09/22>per medical record, pt sent to ER at [facility] following dialysis for reddened sores on her buttocks. Admitting dx was enterococcus UTI, decubitus ulcer and sacral cellulitis. Difficult intravenous access Black stools Mobility impaired pt non compliant with hx pt treatments / PT IS IN WHEELCHAIR/TOTAL ASSIST Poor short term memory [place] (hard of hearing) COPD (chronic obstructive pulmonary disease) no medications for currently History of stroke 2019- pts spouse poor historian pt denies hx stroke History of anesthesia reaction "hard time waking up" Hx: recurrent pneumonia History of COVID-19 ? early 2021- mild congestion, no hospitalization, no current issues Non-ST elevation RI (NSTEMI) pt spouse not sure/ mild ? remembers something mentioned in hx/ ? details ESRD (end stage renal disease) on dialysis tues, thur & sat ([facility]) Aspiration pneumonia HX Morbid obesity Rheumatoid arthritis ? current status/no meds for Chronic diastolic heart failure EF 50% on 01/2020 echo RACHEL (iron deficiency anemia) Subdural hematoma hx fall 2019 - tx to [facility]/no surgical intervention RENÉ on CPAP Depression Meniere's disease Generalized anxiety disorder Dyslipidemia Restless leg syndrome Diabetes mellitus, type II hx / NO MEDS HTN (hypertension) Surgical History Hx of arteriovenostomy for renal dialysis right arm History of tubal ligation History of carpal tunnel surgery B/L History of orthopedic surgery " bilat heel surgery" H/O sinus surgery Hx of total knee arthroplasty B/L Family History Other AAA (abdominal aortic aneurysm) Diabetes Family history non-contributory Hypertension Myotonic dystrophy Social History Smoking Status: Smoker, status unknown Tobacco Type: Declines Cigarettes Per Day: 0.25ppd; Second Hand Exposure: No; Do You Dip or Chew Tobacco: No; Tobacco Cessation Education Requested by Patient: No Hx Alcohol Use: No Hx Substance Use: No Preferred Language: Citizen [place] Communication Ability: Effective Communication Ability Comment: intubated Extractor Tender Raw Stock Required: No Beliefs That Will Affect Care: None marital status: Current Living Situation: [facility] Current Living Situation Comment: [facility] Other Information That Helps Us Care for You: No Feels Safe at Home: Yes Safety Concerns: Feels Safe At This Time Assistive Devices: Wheelchair Review of Systems Review of Systems: Unobtainable due to cognitive status Physical Exam Constitutional: + ill appearing and + morbidly obese Eyes: PERRL, conjunctivae normal, anicteric sclerae ENMT: external ear and nose normal, oropharynx normal Neck: trachea midline, no thyromegaly Respiratory: normal respiratory effort, lungs clear to auscultation Cardiovascular: RRR, no murmur, no edema Gastrointestinal (Abdomen): normal bowel sounds, soft, nontender, no hepatosplenomegaly Musculoskeletal: CALLAHAN, generalized weakness Skin: no rashes, warm and dry + pallor Neurologic: drowsy, oriented to person only, delayed speech, able to follow some simple commands Results & Data Vital Signs (Past 12 Hours) Vital Signs Temp Pulse Pulse Pulse Resp BP Pulse Ox 05/24/24 07:59 36.7 C 72 19 97/45 L 95 05/24/24 07:09 76 18 93 05/24/24 07:00 78 05/24/24 03:31 37.0 C 76 19 104/66 93 05/23/24 23:38 84 19 96 05/23/24 23:18 37.0 C 76 18 115/68 99 05/23/24 22:15 79 O2 Del Method O2 Flow Rate 05/24/24 07:59 Room Air 05/24/24 07:09 Room Air 05/24/24 07:00 05/24/24 03:31 Room Air 05/23/24 23:38 2 05/23/24 23:18 CPAP 05/23/24 22:15 Laboratory Results Abnormal lab results 05/24/24 Range/Units 05:52 WBC 13.31 H (4.8-10.8) K/ul RBC 2.73 L (4.20-5.40) M/uL Hgb 9.5 L (12.0-16.0) g/dl Hct 28.6 L (37.0-47.0) % MCV 104.8 H (80.0-100.0) fL MCH 34.8 H (25.0-34.0) pg RDW Std Deviation 61.3 H (36.4-46.3) fL RDW Coeff of Bhavin 17.0 H (11.5-14.5) % Neut # (Auto) 10.79 H (1.40-6.50) K/uL Lymph # (Auto) 0.82 L (1.20-3.40) K/uL Victoria # (Auto) 1.37 H (0.11-0.59) K/uL Immature Gran # (Auto) 0.26 H (0.01-0.20) K/uL BUN 36 H (6-23) mg/dl Creatinine 7.32 H* D (0.6-1.2) mg/dl BUN/Creatinine Ratio 4.9 L (10-20) Glucose 124 H (70-99(Fasting)) mg/dl Magnesium 1.6 L (1.7-2.4) mg/dl ALT 6 L (7-52) U/L Diagnostic Findings Chest X-Ray 05/21/24 11:32 XR chest 1V portable CLINICAL HISTORY: Chest pain, nonspecific COMPARISON STUDY: 05/17/2024 FINDINGS: Stable prominent cardiomegaly with mild pulmonary vascular congestion. There is mild pulmonary interstitial prominence. No lobar consolidation or pleural effusion. No pneumothorax. IMPRESSION: CHF. ACT 112: Negative or not required by law. Electronically signed by: Zurdo Sanchez M.D. 05/21/2024 12:[address] 05/21/24 12:08 CT head/brain wo con CLINICAL HISTORY: AMS. TECHNIQUE: Multiple axial CT images of the head were obtained without contrast. A dose lowering technique was utilized adhering to the principles of ALARA. CT DOSE: 625.8 mGy.cm COMPARISON: 02/17/2024. FINDINGS: No intracranial hemorrhage seen. No mass effect, midline shift, or hydrocephalus. Stable mild chronic small vessel ischemic changes. There is mucosal thickening at the right maxillary sinus and the left sphenoid sinus. No skull fracture seen. IMPRESSION: No acute findings. ACT 112: Negative or not required by law. The above report was generated using voice recognition software. It may contain grammatical, syntax or spelling errors. Electronically signed by: Zurdo Sanchez M.D. 05/21/2024 1:50 PM Chest CTA 05/21/24 15:03 EXAM: CT Angiography Chest With Intravenous Contrast INDICATION: Chest pain TECHNIQUE: Axial computed tomographic angiography images of the chest with intravenous contrast. Sagittal and coronal reformatted images were created and reviewed. This CT exam was performed using one or more of the following dose reduction techniques: automated exposure control, adjustment of the mA and/or kV according to patient size, and/or use of iterative reconstruction technique. MIP reconstructed images were created and reviewed. CONTRAST: 115ml of Optiray 320 was administered intravenously. COMPARISON: 01/30/2020 FINDINGS: Pulmonary arteries: No abnormality noted. No pulmonary embolism. Aorta: Atherosclerotic calcification of the aorta and branches. No aneurysm. Lungs and pleural spaces: Scattered groundglass opacity throughout the lungs noted relatively sparing the left upper lobe. No confluent consolidation. No bronchiectasis, honeycombing or reticulation. No significant effusion. No pneumothorax. Heart: Stable marked cardiomegaly. No right heart strain or pericardial effusion. Bones/joints: No acute or atypical chronic changes. Soft tissues: No abnormality noted. Lymph nodes: No abnormality noted. No enlarged lymph nodes. IMPRESSION: 1. No pulmonary embolus noted. 2. Multifocal groundglass infiltrates in both lungs typical of nonspecific pneumonitis. ACT 112: N/A Electronically signed by Hyun Valderrama 05-21-2024 4:31 PM Medications Administered Current Inpatient Medications Acetaminophen (Acetaminophen 500 Mg Tab) 1,000 mg PO Q8H PRN PRN Reason: pain or fever Stop: 06/21/24 17:04 Albuterol (Albut/Ipratrop 3mg/0.5mg Neb 3 Ml Vial) 3 ml INH TID [facility]; Protocol Stop: 06/21/24 08:59 Last Admin: 05/24/24 12:59 Dose: 3 ml Aspirin (Aspirin 81 Mg Ectab) 162 mg PO MoWeFr@0600 [facility] Stop: 06/23/24 05:59 Last Admin: 05/24/24 06:36 Dose: 162 mg Atorvastatin Calcium (Atorvastatin 40 Mg Tab) 80 mg PO QPM [facility] Stop: 06/21/24 20:59 Last Admin: 05/23/24 20:39 Dose: 80 mg Carbidopa/Levodopa (Carbidopa/Levodopa 25/100mg Tab) 1 tab PO TIDM [facility] Stop: 06/21/24 07:59 Last Admin: 05/24/24 12:19 Dose: 1 tab Doxycycline Hyclate (Doxycycline Hyclate 100 Mg Cap) 100 mg PO BID [facility] Stop: 05/28/24 20:59 Last Admin: 05/24/24 08:29 Dose: 100 mg Fluticasone/Vilanterol (Fluticasone/Vilanterol 200/25mcg 14 Puffs/Inhaler) 1 puffs INH DAILY [facility] Stop: 06/21/24 08:59 Last Admin: 05/24/24 08:29 Dose: 1 puffs Heparin Sodium (Porcine) (Heparin Sod 5,000 Unit/0.5 Ml Vial) 5,000 units SQ Q 12 [facility] Stop: 06/21/24 20:59 Last Admin: 05/24/24 10:54 Dose: Not Given Methylprednisolone 40 mg/ (Syringe) 0.64 mls @ 1.5 mls/min IV Q12H [facility] Stop: 06/20/24 17:14 Last Admin: 05/24/24 06:37 Dose: 1.5 mls/min Cefepime HCl (Maxipime 2000mg) 1,000 mg in 10 mls @ 5 mls/min IV Q24H [facility]; Protocol Stop: 05/29/24 04:59 Last Admin: 05/24/24 16:55 Dose: 5 mls/min Lactobacillus Acidophilus (Advanced Probiotic 625 Mg Capsule) 1,250 mg PO DAILY [facility] Stop: 06/22/24 16:44 Last Admin: 05/24/24 08:30 Dose: 1,250 mg Levothyroxine Sodium (Levothyroxine Sodium 125 Mcg Tablet) 125 mcg PO DAILYBB [facility] Stop: 06/21/24 06:29 Last Admin: 05/24/24 06:37 Dose: 125 mcg Melatonin (Melatonin 3 Mg Tab) 6 mg PO HS PRN PRN Reason: Sleep Stop: 06/21/24 20:04 Last Admin: 05/23/24 20:37 Dose: 6 mg Ondansetron HCl (Ondansetron Inj 2 Mg/Ml 2 Ml Vial) 4 mg IV Q6H PRN PRN Reason: Nausea And Vomiting Stop: 06/21/24 17:04 Last Admin: 05/23/24 09:38 Dose: 4 mg Pantoprazole Sodium (Pantoprazole 40 Mg Tab) 40 mg PO BID [facility] Stop: 06/21/24 08:59 Last Admin: 05/24/24 08:30 Dose: 40 mg Polyethylene Glycol (Polyethylene (Miralax) 17 Gm Pack) 17 gm PO DAILY PRN PRN Reason: Constipation Stop: 06/21/24 17:05 PG Care Time/CCT Total # of Minutes Spent Total Time Spent with Patient: Total time spent is greater than 50% in coordination of care (as documented) at patient's floor/unit and/or counseling patient: [place] [address] IN/OBS CONSULT LVL 2,35M Patient Type New History Expanded Problem Focused Exam Problem Focused Medical Decision Making Low Complexity Diagnoses Palliative care by specialist Z51.5 Counseling regarding goals of care Z71.89 Advance directive in chart Z78.9
--- NOTE | 2024-05-24 14:14 | Nephrology Progress Note ---
Date of Service May 24, 2024 Assessment & Plan (1) ESRD (end stage renal disease) on dialysis: Plan: Patient on dialysis Friday. Dialysis has been a challenge due to hypotension. She had dialysis Friday. Will continue midodrine with dialysis. Patient will be dialyzed today for 3-1/2 hours target UF 1-2 L as tolerated (2) Acute encephalopathy: Plan: likely metabolic encephalopathy. Mental status has improved (3) Acute respiratory failure with hypoxia: Plan: probably multifactorial with recent influenza as well as CHF and encephalopathy. respiratory status has improved after dialysis. Will continue monitor and dialyze as needed if more hypoxic. Admission and Anticipated Discharge Date Admission Date: May 21, 2024 Subjective seen for ESRD. No shortness of breath or leg swelling. Blood pressure is always low. Patient is due for dialysis today. Review of Systems 2 Review of Systems: All other systems were reviewed and negative except as noted in HPI Physical Exam 2 Physical Exam: General exam: Appears comfortable, no acute distress HEENT: Pupils are equal and reactive to light Neck: No JVD, neck is supple trachea is midline Respiratory system: Clear breath sounds bilaterally. Gastrointestinal: Abdomen is soft, non distended, non tender, bowel sounds are present CVS: Regular rate and rhythm. No murmurs, rubs or gallops Musculoskeletal: No joint or muscle tenderness Extremities: Non tender, no edema, peripheral pulses are present Neuro: Oriented, no tremors, no focal neurological deficits Skin: No rashes Results & Data Vital Signs (Past 12 Hours) Vital Signs Temp Pulse Pulse Pulse Resp BP BP 05/24/24 12:59 72 18 05/24/24 12:30 68 104/50 L 05/24/24 12:16 68 116/55 L 05/24/24 12:10 36.6 C 70 05/24/24 11:26 37.0 C 72 18 97/59 L 05/24/24 09:34 05/24/24 07:59 36.7 C 72 19 97/45 L 05/24/24 07:09 76 18 05/24/24 07:00 78 05/24/24 03:31 37.0 C 76 19 104/66 Pulse Ox O2 Del Method 05/24/24 12:59 94 Room Air 05/24/24 12:30 05/24/24 12:16 05/24/24 12:10 05/24/24 11:26 94 Room Air 05/24/24 09:34 Room Air 05/24/24 07:59 95 Room Air 05/24/24 07:09 93 Room Air 05/24/24 07:00 05/24/24 03:31 93 Room Air Laboratory Results 05/24/24 05:52 05/24/24 05:52 WBC 13.31 H RBC 2.73 L MCV 104.8 H MCH 34.8 H MCHC 33.2 RDW Std Deviation 61.3 H RDW Coeff of Bhavin 17.0 H Plt Count 282 MPV 11.4 Phosphorus 4.0 D Albumin 3.6
[2024-05-24] MEDS: HEPARIN SOD (PORCINE) 1000 UNIT/ML IV SCH (15:34)
[2024-05-24] MEDS: HEPARIN SOD (PORCINE) 1000 UNIT/ML IV ONE (15:34)
--- NOTE | 2024-05-24 16:20 | Hospitalist Progress Note ---
Date of Service May 24, 2024 Assessment & Plan (1) Chest pain: (2) Volume overload: (3) Acute respiratory failure with hypoxia: (4) End-stage renal disease (ESRD): Plan 78-year-old female with history of end-stage renal disease, Parkinson's, hypothyroidism, obstructive sleep apnea, orthostatic hypotension presenting with chest pain, hypoxia, confusion while at dialysis. Pt refusing IV replacement on 05/22- labs unable to be drawn. Agreeable to trial later in the day. 05/23/24- Discussion with multiple times over the phone...agreeable to palliative care consult given pt's refusal of care and multiple admissions with more frequent need for dialysis. Palliative Care consult placed, appreciate further recs Family meeting planned for 05/25/24 She is currently being treated for the following: Chest pain Pneumonitis Occurred during hemodialysis earlier today Chest pain-free while at the ER Initial troponins 40, downtrended EKG no signs of acute ischemia or infarct Echocardiogram with EF 50-55%, septal motion consistent with conduction abnormality and mild LVH CT angio without PE but notes a pneumonitis respiratory biofire negative Procal elevated MRSA nares negative Blood cx NGTD On Cefepime, doxycycline and IV solumedrol Continue to monitor Acute hypoxic respiratory failure Likely volume overload from ESRD Discharged from the hospital yesterday after being admitted for acute respiratory failure secondary to multifocal pneumonia, influenza A ABG:pH 7.4, pCO2 50, bicarb 33 Chest x-ray today showing CHF pattern CTA chest with pneumonitis above BioFire negative Continue CPAP for now HD on 05/21 Appreciate Nephrology recs Lethargy Encephalopathy CT head no acute process ABG unremarkable Likely secondary to above UA uncollected Blood Cx NGTD Delirium precautions. Frequent reorientation, avoid sedating medications as able Baseline dementia, [place] Continue to monitor closely Other chronic medical conditions: Parkinson disease Hypothyroidism Obstructive sleep apnea Orthostatic hypotension-continue midodrine Diet: Dialysis Renal, Easy to chew DVT prophylaxis: SCDs, heparin SQ Disposition: Lives at [facility]. PT/OT for further recs Admission and Anticipated Discharge Date Admission Date: May 21, 2024 Subjective pt was seen laying in bed [place] Stated she wanted to sleep Denied acute concerns Review of Systems Review of Systems: All systems reviewed & are unremarkable except as noted in Subjective Physical Exam Physical Exam: General: Alert,No acute distress Neuro: [place] HEENT: NC/AT CV: RRR Resp: Breath sounds clear bilaterally, no increased effort of breathing Abdomen:Soft, nontender Extremities: No edema in lower extremities bilaterally. Results & Data Results & Data Vital Signs (Past 12 Hours) Vital Signs Temp Pulse Pulse Pulse Resp BP BP 05/24/24 16:00 68 92/51 L 05/24/24 15:30 66 96/46 L 05/24/24 15:08 73 05/24/24 15:00 64 93/46 L 05/24/24 14:30 72 92/47 L 05/24/24 14:00 65 97/48 L 05/24/24 13:30 68 104/50 L 05/24/24 13:16 68 116/55 L 05/24/24 12:59 72 18 05/24/24 12:10 36.6 C 70 05/24/24 11:26 37.0 C 72 18 97/59 L 05/24/24 09:34 05/24/24 07:59 36.7 C 72 19 97/45 L 05/24/24 07:09 76 18 05/24/24 07:00 78 Pulse Ox O2 Del Method 05/24/24 16:00 05/24/24 15:30 05/24/24 15:08 05/24/24 15:00 05/24/24 14:30 05/24/24 14:00 05/24/24 13:30 05/24/24 13:16 05/24/24 12:59 94 Room Air 05/24/24 12:10 05/24/24 11:26 94 Room Air 05/24/24 09:34 Room Air 05/24/24 07:59 95 Room Air 05/24/24 07:09 93 Room Air 05/24/24 07:00
[2024-05-24] MEDS: CEFEPIME 1000MG 1,000 MG/10 ML SYR IV SCH (16:55)
[2024-05-25] MEDS: ACETAMINOPHEN 500 MG TAB PO PRN (03:37)
[2024-05-25 06:19] LABS: Basophils # (auto) 0.05 K/uL (0.00-0.20); Basophils % (auto) 0.4 %; Hematocrit (blood only) 30.7 % (37.0-47.0); Hemoglobin 9.9 g/dl (12.0-16.0); Immature Granulocytes # (auto) 0.39 K/uL (0.01-0.20); Immature Granulocytes % (auto) 3.4 %; Lymphocytes # (auto) 0.85 K/uL (1.20-3.40); Lymphocytes % (auto) 7.3 %; Mean Corpuscular Hemoglobin 33.7 pg (25.0-34.0); Mean Corpuscular Hgb Conc 32.2 g/dL (32.0-36.0); Mean Corpuscular Volume 104.4 fL (80.0-100.0); Mean Platelet Volume 11.2 fL (9.4-12.4); Monocytes # (auto) 1.34 K/uL (0.11-0.59); Monocytes % (auto) 11.6 %; Neutrophils # (auto) 8.96 K/uL (1.40-6.50); Neutrophils % (auto) 77.3 %; Platelet Count 314 K/uL (130-400); RDW Coefficient of Variation 17.1 % (11.5-14.5); RDW Standard Deviation 63.2 fL (36.4-46.3); Red Blood Count 2.94 M/uL (4.20-5.40); White Blood Count 11.59 K/ul (4.8-10.8)
[2024-05-25 06:42] LABS: Albumin Globulin Ratio 1.3 (0.9-2); Albumin Level 3.9 gm/dl (3.4-5.0); BUN Creatinine Ratio 4.8 (10-20); Bilirubin,Total 0.5 mg/dl (0.2-1.0); Calcium 9.8 mg/dl (8.6-10.3); Creatinine Clr Calc Pharmacy 10.6 ml/min; Magnesium 1.7 mg/dl (1.7-2.4); Potassium 4.4 mmol/L (3.5-5.1); Total Protein 6.9 gm/dl (6.0-8.3)
[2024-05-25 07:06] LABS: Folate (Folic Acid),Ser orPlas 15.15 ng/ml (>5.38)
[2024-05-25 07:11] LABS: Ferritin 1260.6 ng/ml (8-388)
--- NOTE | 2024-05-25 10:14 | Hospitalist Progress Note ---
Date of Service May 25, 2024 Assessment & Plan (1) Chest pain: (2) Volume overload: (3) Acute respiratory failure with hypoxia: (4) End-stage renal disease (ESRD): Plan 78-year-old female with history of end-stage renal disease, Parkinson's, hypothyroidism, obstructive sleep apnea, orthostatic hypotension presenting with chest pain, hypoxia, confusion while at dialysis. Pt refusing IV replacement on 05/22- labs unable to be drawn. Agreeable to trial later in the day. 05/23/24- Discussion with multiple times over the phone...agreeable to palliative care consult given pt's refusal of care and multiple admissions with more frequent need for dialysis. Palliative Care consult placed, appreciate further recs Family meeting planned for 05/25/24 Per Palliative care on 05/25/24: "...pt now DNR/DNI but continue all care otherwise. completed POLST to be sent to [facility] on DC. DNR/DNI and no artificial nutrition..." She is currently being treated for the following: Chest pain Pneumonitis Occurred during hemodialysis earlier today Chest pain-free while at the ER Initial troponins 40, downtrended EKG no signs of acute ischemia or infarct Echocardiogram with EF 50-55%, septal motion consistent with conduction abnormality and mild LVH CT angio without PE but notes a pneumonitis respiratory biofire negative Procal elevated MRSA nares negative Blood cx NGTD On Cefepime x 5 days continue with doxycycline and steroids Continue to monitor Acute hypoxic respiratory failure Likely volume overload from ESRD Discharged from the hospital the day prior after being admitted for acute respiratory failure secondary to multifocal pneumonia, influenza A ABG:pH 7.4, pCO2 50, bicarb 33 Chest x-ray today showing CHF pattern CTA chest with pneumonitis above BioFire negative Continue CPAP for now HD on 05/21, 05/24 Appreciate Nephrology recs Lethargy Encephalopathy CT head no acute process ABG unremarkable Likely secondary to above UA uncollected Blood Cx NGTD Delirium precautions. Frequent reorientation, avoid sedating medications as able Baseline dementia, [place] Continue to monitor closely Other chronic medical conditions: Parkinson disease Hypothyroidism Obstructive sleep apnea Orthostatic hypotension-continue midodrine Diet: Dialysis Renal, Easy to chew DVT prophylaxis: SCDs, heparin SQ Disposition: Lives at [facility]. PT/OT for further recs Admission and Anticipated Discharge Date Admission Date: May 21, 2024 Subjective Pt was seen with at bedside. Denied acute concerns Having palliative care discussion today Review of Systems Review of Systems: All systems reviewed & are unremarkable except as noted in Subjective Physical Exam Physical Exam: General: Alert,No acute distress Neuro: [place] HEENT: NC/AT CV: RRR Resp: Breath sounds clear bilaterally, no increased effort of breathing Abdomen:Soft, nontender Extremities: edema in lower extremities bilaterally. Results & Data Results & Data Vital Signs (Past 12 Hours) Vital Signs Temp Pulse Pulse Resp BP Pulse Ox O2 Del Method 05/25/24 08:00 Room Air 05/25/24 07:45 36.8 C 71 18 123/64 93 Room Air 05/25/24 06:55 67 18 94 Room Air 05/25/24 03:33 36.9 C 59 L 18 129/63 95 Room Air 05/24/24 22:54 67 19 110/59 L 97 BiPAP
--- NOTE | 2024-05-25 12:28 | Nephrology Progress Note ---
Date of Service May 25, 2024 Assessment & Plan (1) ESRD (end stage renal disease) on dialysis: Plan: Patient on dialysis Friday. Dialysis has been a challenge due to hypotension. She had dialysis Friday. Will continue midodrine with dialysis. Patient will be dialyzed tomorrow for 3-1/2 hours target UF 1-2 L as tolerated (2) Acute encephalopathy: Plan: likely metabolic encephalopathy. Mental status has improved (3) Acute respiratory failure with hypoxia: Plan: probably multifactorial with recent influenza as well as CHF and encephalopathy. respiratory status has improved after dialysis. Will continue monitor and dialyze as needed if more hypoxic. Admission and Anticipated Discharge Date Admission Date: May 21, 2024 Subjective Seen for ESRD. was at the bedside. Patient seen with Palliative Care Medicine as well. They are concerned about recurrent hypotension at outside dialysis unit. She feels better today. No shortness of breath. Review of Systems 2 Review of Systems: All other systems were reviewed and negative except as noted in HPI Physical Exam 2 Physical Exam: General exam: Appears comfortable, no acute distress HEENT: Pupils are equal and reactive to light Neck: No JVD, neck is supple trachea is midline Respiratory system: Clear breath sounds bilaterally. Gastrointestinal: Abdomen is soft, non distended, non tender, bowel sounds are present CVS: Regular rate and rhythm. No murmurs, rubs or gallops Musculoskeletal: No joint or muscle tenderness Extremities: Non tender, no edema, peripheral pulses are present Neuro: Oriented, no tremors, no focal neurological deficits Skin: No rashes Results & Data Vital Signs (Past 12 Hours) Vital Signs Temp Pulse Pulse Resp BP Pulse Ox O2 Del Method 05/25/24 11:19 36.7 C 85 18 109/61 94 Room Air 05/25/24 08:00 Room Air 05/25/24 07:45 36.8 C 71 18 123/64 93 Room Air 05/25/24 06:55 67 18 94 Room Air 05/25/24 03:33 36.9 C 59 L 18 129/63 95 Room Air Laboratory Results 05/25/24 05:41 05/25/24 05:41 WBC 11.59 H RBC 2.94 L MCV 104.4 H MCH 33.7 MCHC 32.2 RDW Std Deviation 63.2 H RDW Coeff of Bhavin 17.1 H Plt Count 314 MPV 11.2 Phosphorus 4.0 Albumin 3.9
--- NOTE | 2024-05-25 23:39 | Palliative Family Discussion ---
Date of Service May 25, 2024 Patient Directed Conference Time of Meetin:30 - 12:20 Participants: Arminda Zamarripa AGACNP Patient participation: minimal Patient Support System: spouse Other Healthcare Provider Participation: None Meeting Location: bedside Advanced Directive available: no If yes, descriptors: The patient's surrogate medical decision maker participated: yes spouse Wesley Hassan was present Legally authorized health care proxy: Spouse Wesley Hassan Other surrogate: n/a A family meeting was held for CHESTER HASSAN. This meeting was necessary for determining the appropriate course of treatment. Topics of Discussion Topics of Discussion: 1. decisional capacity 2. goals of care 3. prognostication/disease trajectory 4. code status 5. POLST completed Other Content of Meetin. Opportunity given for participants to speak and ask questions. 2. Participants were assured of attention to patient comfort. 3. Reassurance provided. 4. Support was provided for informed, good-satish decisions. 5. Emotions expressed by family were acknowledged and addressed. 6. Follow-up Outpatient: n/a 7. Plan of Care: DNR/DNI, no artificial nutrition Lengthy ACP conversation with pt's spouse, pt participated minimally in conversation. Dr. Kevin Bruce, nephrology, was present for much of conversation. Introduced Palliative Medicine and explained our role in advanced care planning, symptom management and navigation through the progression of life limiting disease. Wesley was receptive to palliative services for goals of care discussions. Reviewed we are different from hospice, a home health nurse visiting service. Patient currently lacks decisional capacity based on the inability to convey understanding of personal PMHx, current medical condition, treatment options nor the risks / benefits of those options, and lack of ability to make decisions based on such knowledge. Hospital does have written documentation of patient wishes concerning her chosen proxy for medical decisions. AD paperwork on file which was properly executed by patient on designates patient's HCPOA for all medical decisions in the event she lacks decisional capacity, as follows: 1. Wesley Hassan (spouse) 2. Carmen Hughes (dtr) 3. Kenia Raymond (dtr) 4. Jeanne Schmitt (dtr) Pt does currently require a proxy for medical decisions. Wesley is agreeable to serving as HCPOA. Wesley shared concern for the patient's quality of life given her recent frequent admissions due to poor tolerance of HD. He shared concern that the HD clinic is taking too much fluid off in a very short period of time causing her to become hypotensive and be sent to ED. Dr Bruce spent a good bit of time helping Wesley understand that oupt IHD in clinic is generally done over 3-4hrs and they could either take less fluid off in that period OR change to longer dialysis as outpt in SNF getting HD for 4-6hrs overnight. After much conversation Wesley remains focused on "slowing down dialysis" but resistant to trying overnight dialysis at SNF. He shared concern for her quality of life and sited her recent refusal of HD. He expressed concern that "she had given up" , but pleased that she has since tolerated HD well while here. Discussed code status and helped Wesley understand that CPR is only done after a person has and involves uncomfortable and invasive procedures that, if successful. have high risk of multiple complications including but not limited to rib fractures, pneumo/hemothorax, SAM, ventilator dependence, anoxic brain injury, and senior living/permanent cognitive and functional deficits. CPR survival: Only about 10% of patients who have [id number] sudden cardiac arrest survive to hospital discharge, with many survivors having neurologic impairment. This rate is even lower among patients with serious coexisting conditions, ie chance of survival to hospital discharge for in- hospital CPR in older people is low to moderate (15%) and decreases with age, comorbidities, performance status and frailty: for pts > 70 yo, more than half of the patients who initially survived resuscitation in the hospital before hospital discharge. The pooled survival to discharge after in-hospital CPR was 18% for patients between 70 and 79 years old, 15% for patients between 80 and 89 years old and 11% for patients of 90 years and older. (Thiago HINSON, Sanchez LJ, Mathew F, et al. Trends in short- and long-term survival among [id number] car diac arrest patients alive at hospital arrival. Circulation 2014;130:3872-9965. AND Kelly C, James T, Jason R, et al. Performance of clinical risk scores to predict mortality and neurological outcome in cardiac arrest patients. Resuscitation 2019;136:21-29.) Wesley shared that the pt would not want to be on life support machines nor artificial nutrition through a tube, and requested change in code status to DNR/DNI. POLST form completed to reflect current wishes and advised Wesley destroy the older form at home to avoid any confusion. Time Involved in Meeting: I spent 75 minutes overall addressing this case: 15 in medical data review/discussion with referring provider(s) and/or preparation for the visit 50 in direct interaction with the patient and family 40 Advance Care Planning/Goals of Care discussions as detailed above in note (must be >16min) 10 in communicating with other providers regarding the patient's case: BSRN, attending and nephrology
[2024-05-26] MEDS: predniSONE 20 MG TAB PO SCH (09:14)
--- NOTE | 2024-05-26 13:31 | Hospitalist Progress Note ---
Date of Service May 26, 2024 Assessment & Plan (1) Chest pain: (2) Volume overload: (3) Acute respiratory failure with hypoxia: (4) End-stage renal disease (ESRD): Plan 78-year-old female with history of end-stage renal disease, Parkinson's, hypothyroidism, obstructive sleep apnea, orthostatic hypotension presenting with chest pain, hypoxia, confusion while at dialysis. Pt refusing IV replacement on 05/22- labs unable to be drawn. Agreeable to trial later in the day. 05/23/24- Discussion with multiple times over the phone...agreeable to palliative care consult given pt's refusal of care and multiple admissions with more frequent need for dialysis. Palliative Care consult placed, appreciate further recs Family meeting planned for 05/25/24 Per Palliative care on 05/25/24: "...pt now DNR/DNI but continue all care otherwise. completed POLST to be sent to [facility] on DC. DNR/DNI and no artificial nutrition..." She is currently being treated for the following: Chest pain Pneumonitis Occurred during hemodialysis earlier today Chest pain-free while at the ER Initial troponins 40, downtrended EKG no signs of acute ischemia or infarct Echocardiogram with EF 50-55%, septal motion consistent with conduction abnormality and mild LVH CT angio without PE but notes pneumonitis Respiratory biofire negative Procal elevated MRSA nares negative Blood cx NGTD On Cefepime x 5 days Continue with doxycycline and steroids Continue to monitor Acute hypoxic respiratory failure Likely volume overload from ESRD Discharged from the hospital the day prior after being admitted for acute re spiratory failure secondary to multifocal pneumonia, influenza A ABG:pH 7.4, pCO2 50, bicarb 33 Chest x-ray today showing CHF pattern CTA chest with pneumonitis above BioFire negative Continue CPAP for now HD on 05/21, 05/24 Appreciate Nephrology recs Lethargy Encephalopathy CT head no acute process ABG unremarkable Likely secondary to above Blood Cx NGTD Delirium precautions. Frequent reorientation, avoid sedating medications as able Baseline dementia, [place] Continue to monitor closely Other chronic medical conditions: Parkinson disease Hypothyroidism Obstructive sleep apnea Orthostatic hypotension-continue midodrine Diet: Dialysis Renal, Easy to chew DVT prophylaxis: SCDs, heparin SQ Disposition: Lives at [facility]. Palliative recs noted I spent a total of 40 minutes coordinating, documenting and providing care for this patient excluding time spent in performance of separately billed services Admission and Anticipated Discharge Date Admission Date: May 21, 2024 Subjective Patient seen and examined in HD unit She is alert and oriented to person only Denied any complaints Physical Exam Constitutional: + well hydrated and + obese; no acute di stress Eyes: EOM intact bilaterally ENMT: Ears: + hearing impairment Respiratory: normal respiratory effort, lungs clear to auscultation Cardiovascular: Rate/Rhythm: regular rate and regular rhythm Gastrointestinal (Abdomen): normal bowel sounds, soft, nontender, no hepatosplenomegaly Musculoskeletal: No pedal edema Results & Data Results & Data Vital Signs (Past 12 Hours) Vital Signs Temp Pulse Resp BP Pulse Ox O2 Del Method 05/26/24 12:25 37.3 C 76 20 120/67 92 Room Air 05/26/24 09:00 Room Air 05/26/24 08:36 36.4 C L 81 21 180/77 H 91 Room Air 05/26/24 06:52 78 18 97 Room Air 05/26/24 02:46 36.8 C 90 20 111/48 L 92 Room Air
[2024-05-26] MEDS: HEPARIN SOD (PORCINE) 1000 UNIT/ML IV ONE (14:56)
[2024-05-26] MEDS: HEPARIN SOD (PORCINE) 1000 UNIT/ML IV SCH (14:56)
--- NOTE | 2024-05-26 15:47 | Nephrology Progress Note ---
Date of Service May 26, 2024 Assessment & Plan (1) ESRD (end stage renal disease) on dialysis: Plan: Patient on dialysis Friday. Dialysis has been a challenge due to hypotension. Will continue midodrine with dialysis. Patient will be dialyzed today for 3-1/2 hours target UF 1-2 L as tolerated (2) Acute encephalopathy: Plan: likely metabolic encephalopathy. Mental status has improved (3) Acute respiratory failure with hypoxia: Plan: probably multifactorial with recent influenza as well as CHF and encephalopathy. respiratory status has improved after dialysis. Will continue monitor and dialyze as needed if more hypoxic. Admission and Anticipated Discharge Date Admission Date: May 21, 2024 Subjective seen for ESRD. No shortness of breath or leg swelling. No new complaints. Review of Systems 2 Review of Systems: All other systems were reviewed and negative except as noted in HPI Physical Exam 2 Physical Exam: General exam: Appears comfortable, no acute distress HEENT: Pupils are equal and reactive to light Neck: No JVD, neck is supple trachea is midline Respiratory system: Clear breath sounds bilaterally. Gastrointestinal: Abdomen is soft, non distended, non tender, bowel sounds are present CVS: Regular rate and rhythm. No murmurs, rubs or gallops Musculoskeletal: No joint or muscle tenderness Extremities: Non tender, no edema, peripheral pulses are present Neuro: Oriented, no tremors, no focal neurological deficits Skin: No rashes Results & Data Vital Signs (Past 12 Hours) Vital Signs Temp Pulse Pulse Pulse Resp BP BP 05/26/24 15:00 80 92/47 L 05/26/24 14:30 80 113/51 L 05/26/24 14:00 78 112/61 05/26/24 13:30 72 122/59 L 05/26/24 13:22 78 120/63 05/26/24 13:13 37.2 C 78 05/26/24 12:25 37.3 C 76 20 120/67 05/26/24 09:00 05/26/24 08:36 36.4 C L 81 21 180/77 H 05/26/24 06:52 78 18 Pulse Ox O2 Del Method 05/26/24 15:00 05/26/24 14:30 05/26/24 14:00 05/26/24 13:30 05/26/24 13:22 05/26/24 13:13 05/26/24 12:25 92 Room Air 05/26/24 09:00 Room Air 05/26/24 08:36 91 Room Air 05/26/24 06:52 97 Room Air Laboratory Results 05/25/24 05:41
[2024-05-27 06:22] LABS: Hematocrit (blood only) 34.9 % (37.0-47.0); Hemoglobin 11.7 g/dl (12.0-16.0); Mean Corpuscular Hemoglobin 34.7 pg (25.0-34.0); Mean Corpuscular Hgb Conc 33.5 g/dL (32.0-36.0); Mean Corpuscular Volume 103.6 fL (80.0-100.0); Mean Platelet Volume 11.3 fL (9.4-12.4); Platelet Count 385 K/uL (130-400); RDW Coefficient of Variation 16.7 % (11.5-14.5); RDW Standard Deviation 61.6 fL (36.4-46.3); Red Blood Count 3.37 M/uL (4.20-5.40); White Blood Count 10.96 K/ul (4.8-10.8)
[2024-05-27 06:45] LABS: BUN Creatinine Ratio 5.6 (10-20); Calcium 9.9 mg/dl (8.6-10.3); Creatinine Clr Calc Pharmacy 11.2 ml/min; Potassium 3.5 mmol/L (3.5-5.1)
--- NOTE | 2024-05-27 11:09 | Discharge Summary ---
Date of Service May 27, 2024 Admission HPI Per Admitting Provider 78-year-old female with history of end-stage renal disease, Parkinson's, hypothyroidism, obstructive sleep apnea, orthostatic hypotension presenting with chest pain, hypoxia, confusion while at dialysis today. History obtained from ER physician as patient is very drowsy. Patient was discharged yesterday from a [facility] after being treated for acute hypoxic respiratory failure secondary to multifocal pneumonia, influenza A, requiring intubation. She completed the course of antibiotics and was discharged on room air. Today, with 1 hour remaining left for hemodialysis, the patient developed chest pain, and was noted to be hypoxic and confused. She was then brought to the ER for evaluation At the ER, patient's blood pressure was borderline, saturating 88% on room air, afebrile. She was placed on her usual CPAP. CT head: No acute process ABG: pH 7.4, pCO2 50, bicarb 33 Chest x-ray: CHF pattern, pulmonary congestion Troponins: 40, 39 EKG: Sinus rhythm with PVCs, no signs of ischemia or infarct Patient seen at the bedside, with her CPAP on, not in distress, sleeping, comfortable. She awakens with verbal commands, answer simple questions then drifts back to sleep. She denies having active chest pain, shortness of breath. She is complaining of left hand pain, side ongoing IV K rider. Admission Exam Per Admitting Provider General- oriented x 2, not in distress, speaks in sentences with no effort or accessory muscle use drowsy Head- atraumatic Eyes- PERRL, EOMI, anicteric ENT- oropharynx clear Neck- supple, no JVD, no adenopathy, no thyromegaly; carotids +2/2, no bruits appreciated Lungs- clear to auscultation bilaterally, no rales/wheezes Heart- normal rate, regular rhythm; no murmur, no gallop, no rub appreciated Abdomen- normal bowel sounds, nondistended, soft, nontender, no masses or hepatosplenomegaly Extremities- no pretibial edema, no calf tenderness; peripheral pulses intact Neuro- drowsy, oriented x 2;moves all extremities equally no gross focal neurologic deficit noted Skin- warm & dry Principal Diagnosis Chest pain Pneumonitis Discharge Exam Constitutional + well hydrated and + obese; no acute distress Eyes EOM intact bilaterally ENMT Ears: + hearing impairment Respiratory normal respiratory effort, lungs clear to auscultation Cardiovascular Rate/Rhythm: regular rate and regular rhythm Gastrointestinal (Abdomen) normal bowel sounds, soft, nontender, no hepatosplenomegaly Musculoskeletal No pedal edema Neurologic Alert and oriented to person. Knows she is in the hospital but does not recall which Discharge Data Allergies Allergy/AdvReac Type Severity Reaction Status Date / Time No Known Allergies Allergy Verified 05/06/24 20:04 Consultations 05/21/24 14:47 ED Decision to Admit Stat 05/21/24 16:31 Consult Nephrology Routine 05/23/24 10:04 Consult Palliative Care Routine Ordered Studies 05/21/24 12:08 CT head/brain wo con Stat 05/21/24 15:03 CT angio chest PE protocol Stat Hospital Course (1) Chest pain: (2) Volume overload: (3) Acute respiratory failure with hypoxia: (4) End-stage renal disease (ESRD): Plan 78-year-old female with history of end-stage renal disease, Parkinson's, hypothyroidism, obstructive sleep apnea, orthostatic hypotension presenting with chest pain, hypoxia, confusion while at dialysis. Pt refusing IV replacement on 05/22- labs unable to be drawn. Agreeable to trial later in the day. 05/23/24- Discussion with multiple times over the phone...agreeable to palliative care consult given pt's refusal of care and multiple admissions with more frequent need for dialysis. Palliative Care consult placed, appreciate further recs Family meeting planned for 05/25/24 Per Palliative care on 05/25/24: "...pt now DNR/DNI but continue all care otherwise. completed POLST to be sent to [facility] on DC. DNR/DNI and no artificial nutrition..." She is currently being treated for the following: Chest pain Pneumonitis/Pneumonia Had chest pain during hemodialysis earlier that Chest pain-free while at the ER Initial troponins 40, downtrended EKG no signs of acute ischemia or infarct Echocardiogram with EF 50-55%, septal motion consistent with conduction abnormality and mild LVH CT angio without PE but noted multifocal groundglass infiltrates in both lungs typical of nonspecific pneumonitis Respiratory biofire negative Procal elevated MRSA nares negative Blood cx NGTD Completed 5 days of cefepime and doxycycline Acute hypoxic respiratory failure Likely volume overload from ESRD Discharged from the hospital the day prior after being admitted for acute respiratory failure secondary to multifocal pneumonia, influenza A ABG:pH 7.4, pCO2 50, bicarb 33 CTA chest with pneumonitis above BioFire negative Had HD while inpatient on 05/21, 05/24, 05/26 Patient was weaned off oxygen Discussed with Emergency Medicine Nurse Practitioner today who recommends for patient to continue 1L per day fluid restriction Lethargy Encephalopathy CT head no acute process ABG unremarkable Likely secondary to above Blood Cx NGTD Delirium precautions. Frequent reorientation, avoid sedating medications as able Baseline dementia, Hearing deficit Other chronic medical conditions: Parkinson disease Hypothyroidism Obstructive sleep apnea Orthostatic hypotension-continue midodrine Patient was evaluated by Palliative and had family meeting with . Patient changed to DNR per family's wishes Called today and updated him. Patient is to continue HD at facility where she lives Total Time Total Time Spent Total Time Spent (In Minutes): 50 Total Time Includes: Examination of the Patient, Discharge Planning, Medication Reconciliation, Communication With Other Providers and Other Discharge Plan Discharge Items Patient Disposition: Transfer Correction Fac Reason For Visit: CHEST PAIN Discharge Diagnosis: Chest pain Pneumonitis Activity: Resume your previous activity Non-emergency contact: Primary Care Provider and Emergency Medicine Nurse Practitioner Call non-emergency contact if: you have any medication questions and your symptoms worsen Follow-up/Referrals: Nae Rodriges PA-C [Primary Care Provider] - Diet: Dialysis Renal and Heart Healthy Fluids: 1000ml (4 cups) Diet Texture: Easy to Chew Addtl Attending Provider Instructions: Mrs Gay You were hospitalized and managed for the above listed diagnoses You also received 5 days of antibiotics while in the hospital. You are being discharged back to nursing facility Please continue 1L per day fluid restriction according to Nephrology Please continue your medications as prescribed. It was a pleasure taking care of you Pending Studies at Discharge: No Stand-Alone Forms: [employer] Mobile Skilled Items Patient informed of condition?: Yes DNR: Yes Discharge Level of Care: Skilled Communicable Disease: No Discharge Prognosis: Stable Lines: None Urinary Catheter: No Medications and DC Order Prescriptions: Continued atorvastatin 80 mg tablet 80 mg PO QPM aspirin 81 mg Tablet,Delayed Release (Dr/Ec) 162 mg PO 3XWK Patient Comments: afternoon hours Rx Instructions: TAKE 2 TABLETS AT 0600 ON DIALYSIS DAYS....FRIDAY,FRIDAY,FRIDAY levothyroxine 125 mcg tablet 125 mcg PO QAM docusate sodium [Colace] 100 mg Capsule 100 mg PO DAILY carbidopa-levodopa 25-100 mg tablet 1 tab PO TIDM Rx Instructions: GIVE WITH MEALS ON ALL DAYS pregabalin 100 mg capsule 100 mg PO BID MDD 300MG/24HR Patient Comments: on dialysis days takes 2 in the evening , , and saturdays Rx Instructions: Patient may take additional dose after hd 3 DAYS A WEEK pantoprazole 20 mg tablet,delayed release (DR/EC) 20 mg PO BID epinephrine [EpiPen] 0.3 mg/0.3 mL Auto-Injector 0.3 mg IM DIRECTED PRN (Reason: Anaphylaxis) melatonin 10 mg Tablet 10 mg PO HS Auryxia 210 mg iron tablet 420 mg PO WM Rx Instructions: MORNING DOSE AT 6AM ON DIALYSIS DAYS (FRI/FRI/FRI) NON-DIALYSIS DAYS GIVE AT 9AM (,,FRI,FRI) fluticasone furoate-vilanterol [Breo Ellipta] 200-25 mcg/dose Blister With Device 1 inh INHALATION AMHS Nanci-Samuel 0.8 mg tablet 1 tab PO DAILY cholecalciferol (vitamin D3) 25 mcg (1,000 unit) Capsule 25 mcg PO DAILY acetaminophen 325 mg Tablet 325 - 650 mg PO Q6 PRN (Reason: MILD-SEVERE PAIN) acetaminophen 500 mg Tablet 500 mg PO QID Auryxia 210 mg iron tablet 210 mg PO . NEEDED PRN (Reason: WITH SNACKS) diclofenac sodium 1 % Gel 2 g TOPICAL QID Rx Instructions: APPLY TO LEFT SHOULDER escitalopram oxalate 10 mg Tablet 10 mg PO QAM ondansetron HCl 4 mg Tablet 4 mg PO Q6H PRN (Reason: Nausea And Vomiting) midodrine 5 mg Tablet 5 mg PO UD Rx Instructions: Take 1 Tablet by mouth in the morning and 1 Tablet at noon and 1 Tablet in the evening. Take an additional tablet MWF at dialysis. sertraline 25 mg Tablet 25 mg PO UD Rx Instructions: [facility] START 05/14/24 END 05/21/24 sertraline 50 mg Tablet 50 mg PO QAM Rx Instructions: TAKE FOR 7 DAYS....STARTING 05/06/24...ENDING 05/13/24 guaifenesin [Siltussin SA] 100 mg/5 mL Liquid 200 mg PO Q4H PRN (Reason: Cough) Rx Instructions: TAKE FOR 14 DAYS...END DATE 05/20/24 dextromethorphan-guaifenesin 10-200 mg/5 mL Liquid 2.5 ml PO Q4 PRN (Reason: Cough) Rx Instructions: GIVE 100MG lidocaine-prilocaine 2.5-2.5 % cream 1 applic topical 3XWK Rx Instructions: APPLY TO [facility] SITE EVERY MON/FRI/FRI TO ACCESS SITE. 1-2 HOURS BEFORE DIALYSIS , COVER WITH OCCLUSIVE DRESSING ipratropium-albuterol 0.5 mg-3 mg(2.5 mg base)/3 mL solution for nebulization 3 ml INHALATION Q4 PRN (Reason: Wheezing) Rx Instructions: TAKE FOR 4 DAYS START 05/06/24.....END 05/20/24 ipratropium-albuterol 0.5 mg-3 mg(2.5 mg base)/3 mL solution for nebulization 3 ml INHALATION TID Rx Instructions: TAKE FOR 10 DAYS...START 05/06/24 END 05/16/24 Discharge Orders: Discharge Order (Routine); Ordered 05/27/24 Ordered By: Betty Gutierrez Admission Data Admit Date/Time: 05/21/24 15:01 Attending Provider: Betty Gutierrez I. Admit Provider: Jacobo Mcclendon Primary Care Provider: Nae Rodriges Other Providers: Jacobo Mcclendon; Walter Baig; Neel Zuluaga; Kathi Zamarripa; Flores Paz; Maranda Benton Other Interventions: Discharge Summary Assessment (RN) Last Done: 05/27/24 12:55
--- NOTE | 2024-05-27 11:50 | Nephrology Progress Note ---
Date of Service May 27, 2024 Assessment & Plan (1) ESRD (end stage renal disease) on dialysis: Plan: Patient on dialysis Friday. Dialysis has been a challenge due to hypotension. Will continue midodrine with dialysis. Patient was dialyzed yesterday for 3-1/2 hours target UF 3 L. maintain a fluid limit of 1 L daily. From renal standpoint patient can be discharged to continue dialysis outpatient. Discussed with Dr. Gutierrez for agrees with possible discharge today (2) Acute encephalopathy: Plan: likely metabolic encephalopathy. Mental status has improved (3) Acute respiratory failure with hypoxia: Plan: probably multifactorial with recent influenza as well as CHF and encephalopathy. respiratory status has improved after dialysis. Will continue monitor and dialyze as needed if more hypoxic. Admission and Anticipated Discharge Date Admission Date: May 21, 2024 Subjective patient is seen for ESRD. She had dialysis yesterday with net UF of 3 L. no shortness of breath or leg swelling. Blood pressure is low this morning Review of Systems 2 Review of Systems: All other systems were reviewed and negative except as noted in HPI Physical Exam 2 Physical Exam: General exam: Appears comfortable, no acute distress HEENT: Pupils are equal and reactive to light Neck: No JVD, neck is supple trachea is midline Respiratory system: Clear breath sounds bilaterally. Gastrointestinal: Abdomen is soft, non distended, non tender, bowel sounds are present CVS: Regular rate and rhythm. No murmurs, rubs or gallops Musculoskeletal: No joint or muscle tenderness Extremities: Non tender, no edema, peripheral pulses are present Neuro: Oriented, no tremors, no focal neurological deficits Skin: No rashes Results & Data Vital Signs (Past 12 Hours) Vital Signs Temp Pulse Pulse Resp BP Pulse Ox O2 Del Method 05/27/24 10:00 Room Air 05/27/24 08:44 75 05/27/24 07:31 36.3 C L 72 17 94/41 L 100 BiPAP 05/27/24 07:12 76 14 98 CPAP 05/27/24 07:12 76 14 98 05/27/24 03:50 18 98 05/27/24 02:54 36.6 C 72 18 122/66 98 CPAP O2 Flow Rate 05/27/24 10:00 05/27/24 08:44 05/27/24 07:31 05/27/24 07:12 2 05/27/24 07:12 2 05/27/24 03:50 2 05/27/24 02:54 Laboratory Results 05/27/24 05:42 05/27/24 05:42 WBC 10.96 H RBC 3.37 L MCV 103.6 H MCH 34.7 H MCHC 33.5 RDW Std Deviation 61.6 H RDW Coeff of Bhavin 16.7 H Plt Count 385 MPV 11.3
[2024-05-27 11:58] VITALS: BP 93/59; TEMP 98.6
[2024-05-27 12:52] VITALS: PULSE 73; RESP 22; O2SAT 94
== END 2024-05-27 15:38 | DRG 193 ==
LOC: ED 11:09 → EDINP 14:13 → SUATTDRO 14:13 → EDINP 15:45 → 4W 16:36

== ENCOUNTER 2024-06-04 07:14 | Inpatient (IN) ==
--- NOTE | 2024-06-04 07:38 | Emergency Department Note ---
Impression & Plan Acute respiratory failure with hypoxia, Encephalopathy, ESRD (end stage renal disease) on dialysis, Pneumonia, Pneumonitis ED Provider Note NAME: CHESTER FRENCH AGE: 78 SEX: F : 1945 ARRIVES VIA: Ambulance INFORMANT: Patient ED PROVIDER(S): Stanley Harper MD CHIEF COMPLAINT: Somnolence, hypotension, referred. PLAN: Disposition: Admit MEDICAL DECISION MAKING: The patient is a pleasant 78-year-old woman with past medical history of end- stage renal disease on hemodialysis, history of CHF, RENÉ on CPAP, type 2 diabetes, hypertension, hyperlipidemia, Parkinson disease who presents emergency department via EMS from her [facility] facility for evaluation of increased somnolence and hypotension this morning 70s/50s when he attempted to get her awake to go to dialysis. Patient did receive her midodrine this morning which she has been on for fluctuating low blood pressure. Per EMS blood pressure 110/80s. There is no report of any recent fevers, cough or congestion. Patient has not missed any dialysis per her report from EMS. Patient was scheduled for dialysis this morning. Patient is DNR/DNI. Patient was recently admitted to this facility from 05/21-05/27 for encephalopathy and pneumonia/pneumonitis with acute hypoxic respiratory failure related to hypervolemia in the setting of her ESRD and influenza A. On evaluation the patient is no acute distress, afebrile with blood pressure 90s-100s/50s-60s and vital signs otherwise stable. The patient will awaken to voice and follows simple commands but then will close her eyes. Patient appears clinically dry with dry mucous membranes and mild skin tenting. EKG demonstrates sinus rhythm with PVCs with baseline left bundle branch block, similar to prior without Sgarbossa criteria. Chest x-ray with patchy bilateral airspace opacities per my preliminary independent or potation. WBC 30.7 K with neutrophilia and left shift. H/H similar to prior range values. Platelets within normal limits. Initial lactic acid 2.7 with anion gap of 16 however chemistry without metabolic acidosis. VBG is unremarkable. Potassium 3.2 and electrolytes otherwise unremarkable. LFTs unremarkable. Initial high- sensitivity troponin 72 with repeat 71, nonspecific in setting of patient's end- stage renal disease and with similar elevations previously. Lipase within normal limits. Procalcitonin is elevated at 5.8. TSH within limits. Respiratory BioFire was negative. CT of the head negative for acute abnormalities. CT of the chest demonstrates no change in multifocal groundglass opacities compared to May 21 which are nonspecific but in the setting of the patient's leukocytosis suspicious for multifocal pneumonia. CT of the abdomen pelvis demonstrates evidence of mild colitis and otherwise no acute abnormalities. Blood cultures were obtained and empiric treatment for pneumonia/sepsis initiated with cefepime and vancomycin. Cautious hydration with 500 cc normal saline given elevated lactic acid. Case was discussed with Deric Kate PAC, with Eduardo Ferro hospitalist who will evaluate the patient for admission. Triage Nursing notes reviewed and agree them. Prior/external medical records reviewed Vital Signs: reviewed Differential diagnosis: Infection, hypoglycemia, electrolyte abnormalities, overdose, toxicologic, cardiac sources, intracerebral event, neurologic, trauma, as well as other pathologies. ER treatment provided: See below. Diagnostics interpreted by me: ECG: Sinus rhythm, 70 bpm, PVCs with baseline left bundle branch block, similar to prior without Sgarbossa criteria. QTc 509, QRS 168. Cardiac Monitoring: An order for continuous cardiac monitoring was placed and demonstrated sinus rhythm, PVCs, 70 bpm. Laboratory studies: See below Imaging studies: See below Consultation(s): eDric Kate PAC, with Deric Ferro hospitalist. HPI: The patient is a pleasant 78-year-old woman with past medical history of end-stage renal disease on hemodialysis, history of CHF, RENÉ on CPAP, type 2 diabetes, hypertension, hyperlipidemia, Parkinson disease who presents emergency department via EMS from her [facility] facility for evaluation of increased somnolence and hypotension this morning 70s/50s when he attempted to get her awake to go to dialysis. Patient did receive her midodrine this morning which she has been on for fluctuating low blood pressure. Per EMS blood pressure 110/80s. There is no report of any recent fevers, cough or congestion. Patient has not missed any dialysis per her report from EMS. Patient was scheduled for dialysis this morning. Patient is DNR/DNI. Patient was recently admitted to this facility from 05/21-05/27 for encephalopathy and pneumonia/pneumonitis with acute hypoxic respiratory failure related to hypervolemia in the setting of her ESRD and influenza A. ROS: See above HPI for pertinent positives & negatives. A total of 10 systems reviewed and were otherwise negative. VITALS:See Below PHYSICAL EXAMINATION: GENERAL: Awake to voice, acute on chronically ill-appearing, in no distress, BMI 34.1. HENT: Normocephalic, atraumatic. Oropharynx with dry mucous membranes and otherwise unremarkable. EYES: Normal conjunctiva. Sclera non-icteric. EOMI. No nystamgus. PEARRL. NECK: Supple. No nuchal rigidity. FROM. No JVD. RESPIRATORY: Wheezing rhonchi bilateral lower lung anand with normal respiratory effort. CARDIAC: Regular rate, normal rhythm. Extremities warm and well perfused. Pulses equal. Right AV fistula with palpable thrill. ABDOMEN: Soft, non-distended. No tenderness to palpation. No rebound or guarding. No masses. MUSCULOSKELETAL: Chest examination reveals no tenderness. The back is symmetrical on inspection without obvious abnormality. There is no CVA tenderness to palpation. No joint edema. LOWER EXTREMITIES: Calves are equal size bilaterally and non-tender. No edema. No discoloration. NEURO: Normal sensorium. No sensory or motor deficits noted. SKIN: No rash or jaundice noted. Mild skin tenting. ED COURSE: Critical Care: I have personally spent greater than 35 minutes of critical care time in the direct management of this patient. This includes bedside care, interpretation of diagnostic studies, and testing, discussion with consultants, patient, and family members, and other required patient management activities. This 35 minutes is in excess of all separately billable procedures. Stanley Harper MD Past Med/Surg History Problem List (Updated 06/05/24 @ 13:23 by Stanley Harper MD) Pneumonitis (Acute) Pneumonia (Acute) Acute respiratory failure with hypoxia (Acute) Encephalopathy (Acute) Advance directive in chart Counseling regarding goals of care Palliative care by specialist Volume overload Chest pain Dysphagia Acute encephalopathy Influenza A Pneumonia Leukocytosis (Acute) Elevated procalcitonin (Acute) Endotracheally intubated (Acute) Elevated brain natriuretic peptide (BNP) level (Acute) Pulmonary vascular congestion (Acute) Influenza A (Acute) Elevated troponin (Acute) Acute confusion (Acute) Sepsis (Acute) Acute hypoxemic respiratory failure (Acute) Pulmonary edema (Acute) Acute respiratory failure with hypoxia RENÉ (obstructive sleep apnea) Diet-controlled type 2 diabetes mellitus Acute on chronic hypoxic respiratory failure (Acute) Chronic hypoxemic respiratory failure Noncompliance with renal dialysis Acute metabolic encephalopathy Hypotension (Acute) Confusion (Acute) Hypothyroidism Sinus bradycardia Hypotension Hemodialysis status (Acute) Anemia (Acute) LBBB (left bundle branch block) (Acute) DM type 2 (diabetes mellitus, type 2) Elevated troponin (Acute) Hypertension Toxic metabolic encephalopathy Dialysis disequilibrium syndrome (Acute) Acute on chronic respiratory failure with hypoxemia Leukocytosis LBBB (left bundle branch block) (Acute) ESRD (end stage renal disease) on dialysis (Acute) Anemia of chronic disease End-stage renal disease (ESRD) (Acute) Generalized weakness Parkinson disease Medical History ESRD on hemodialysis Thickened endometrium Acute ischemic stroke NSTEMI (non-ST elevated myocardial infarction) Elevated troponin I level AV fistula R arm Limb alert care status R arm History of recent hospitalization d/c 09/09/22>per medical record, pt sent to ER at [facility] following dialysis for reddened sores on her buttocks. Admitting dx was enterococcus UTI, decubitus ulcer and sacral cellulitis. Difficult intravenous access Black stools Mobility impaired pt non compliant with hx pt treatments / PT IS IN WHEELCHAIR/TOTAL ASSIST Poor short term memory HOPI (hard of hearing) COPD (chronic obstructive pulmonary disease) no medications for currently History of stroke 2019- pts spouse poor historian pt denies hx stroke History of anesthesia reaction "hard time waking up" Hx: recurrent pneumonia History of COVID-19 ? early 2021- mild congestion, no hospitalization, no current issues Non-ST elevation NC (NSTEMI) pt spouse not sure/ mild ? remembers something mentioned in hx/ ? details ESRD (end stage renal disease) on dialysis tues, thur & sat ([place]) Aspiration pneumonia HX Morbid obesity Rheumatoid arthritis ? current status/no meds for Chronic diastolic heart failure EF 50% on 01/2020 echo RACHEL (iron deficiency anemia) Subdural hematoma hx fall 2019 - tx to [facility]/no surgical intervention RENÉ on CPAP Depression Meniere's disease Generalized anxiety disorder Dyslipidemia Restless leg syndrome Diabetes mellitus, type II hx / NO MEDS HTN (hypertension) Surgical History Hx of arteriovenostomy for renal dialysis right arm History of tubal ligation History of carpal tunnel surgery B/L History of orthopedic surgery " bilat heel surgery" H/O sinus surgery Hx of total knee arthroplasty B/L Family History Other AAA (abdominal aortic aneurysm) Diabetes Family history non-contributory Hypertension Myotonic dystrophy Social History Smoking Status: Unknown if ever smoked Second Hand Exposure: No; Preferred Language: Bengali Communication Ability: Impaired [place] Required: No Beliefs That Will Affect Care: None marital status: Current Living Situation: [facility] Current Living Situation Comment: [facility] Assistive Devices: Hospital Bed and Mechanical Lift Allergies Allergies Allergy/AdvReac Type Severity Reaction Status Date / Time No Known Allergies Allergy Verified 06/04/24 10:11 Home Meds Home Medications Medication Instructions Recorded Confirmed aspirin 81 mg tablet,delayed 162 mg PO 3XWK 11/15/21 06/04/24 release atorvastatin 80 mg tablet 80 mg PO QPM 11/15/21 06/04/24 carbidopa 25 mg-levodopa 100 mg 1 tab PO TIDWMEAL 11/15/21 06/04/24 tablet docusate sodium 100 mg capsule 100 mg PO DAILY 11/15/21 06/04/24 (Colace) levothyroxine 125 mcg tablet 125 mcg PO QAM 11/15/21 06/04/24 pregabalin 100 mg capsule 100 mg PO BID 11/15/21 06/04/24 pantoprazole 20 mg tablet,delayed 20 mg PO BID 05/23/22 06/04/24 release epinephrine 0.3 mg/0.3 mL 0.3 mg IM DIRECTED PRN 09/05/22 06/04/24 injection, auto-injector (EpiPen) Anaphylaxis melatonin 10 mg tablet 10 mg PO HS 09/05/22 06/04/24 ferric citrate 210 mg iron tablet 420 mg PO DIRECTED 01/21/23 06/04/24 (Auryxia) fluticasone furoate 200 1 inh inhalation AMHS 01/21/23 06/04/24 mcg-vilanterol 25 mcg/dose inhalation powder (Breo Ellipta) cholecalciferol (vitamin D3) 25 25 mcg PO DAILY 10/27/23 06/04/24 mcg (1,000 unit) capsule vitamin B complex-vitamin C-folic 1 tab PO DAILY 10/27/23 06/04/24 acid 0.8 mg tablet (Nanci-Samuel) acetaminophen 325 mg tablet 325 - 650 mg PO Q6 PRN MILD-SEVERE 05/06/24 06/04/24 PAIN acetaminophen 500 mg tablet 500 mg PO QID Leg Pain 05/06/24 06/04/24 diclofenac sodium 1 % topical gel 2 g topical QID 05/06/24 06/04/24 escitalopram oxalate 10 mg tablet 10 mg PO QAM 05/06/24 06/04/24 ferric citrate 210 mg iron tablet 210 mg PO DAILY PRN WITH SNACKS 05/06/24 06/04/24 (Auryxia) ipratropium 0.5 mg-albuterol 3 mg 3 ml inhalation Q4 PRN Wheezing 05/06/24 06/04/24 (2.5 mg base)/3 mL nebulization soln lidocaine-prilocaine 2.5 %-2.5 % 1 applic topical 3XWK 05/06/24 06/04/24 topical cream midodrine 5 mg tablet 5 mg PO DIRECTED 05/06/24 06/04/24 ondansetron HCl 4 mg tablet 4 mg PO Q6H PRN Nausea And Vomiting 05/06/24 06/04/24 bisacodyl 10 mg rectal suppository 10 mg MA DAILY PRN Constipation 06/04/24 06/04/24 bisacodyl 5 mg tablet,delayed 5 mg PO DAILY PRN Constipation 06/04/24 06/04/24 release menthol 0.44 %-zinc oxide 20.6 % 1 applic topical DAILY 06/04/24 06/04/24 topical paste nystatin 100,000 unit/gram topical 1 applic topical HS 06/04/24 06/04/24 powder Results & Data (ED) Vital Signs Vital Signs - 24 hr 06/04/24 07:24 06/04/24 07:24 06/04/24 07:24 Temperature 37.4 C 37.4 C Temperature Source Axillary Axillary Pulse Rate 71 Pulse Rate [Apical] 71 Respiratory Rate 24 24 Blood Pressure 101/45 L Blood Pressure [Left Arm] 101/45 L Blood Pressure Mean 63 Blood Pressure Mean [Left Arm] 63 Pulse Oximetry 93 93 93 Oxygen Delivery Method Nasal Cannula Nasal Cannula Nasal Cannula Oxygen Flow Rate 2 2 2 Sepsis Recent Fever Within 48 Hours No Sepsis New/Unexplained Change in Mental Status N/A Sepsis Action Taken by Nursing No Action Required 06/04/24 07:42 06/04/24 08:20 06/04/24 08:58 Temperature Temperature Source Pulse Rate 71 77 Pulse Rate [Apical] 72 Respiratory Rate 24 37 H Blood Pressure Blood Pressure [Left Arm] Blood Pressure Mean Blood Pressure Mean [Left Arm] Pulse Oximetry 93 98 Oxygen Delivery Method Nasal Cannula Nasal Cannula Oxygen Flow Rate 2 3 Sepsis Recent Fever Within 48 Hours Sepsis New/Unexplained Change in Mental Status Sepsis Action Taken by Nursing 06/04/24 10:01 06/04/24 11:03 Temperature Temperature Source Pulse Rate Pulse Rate [Apical] 69 68 Respiratory Rate 16 14 Blood Pressure Blood Pressure [Left Arm] 105/69 110/68 Blood Pressure Mean Blood Pressure Mean [Left Arm] 81 82 Pulse Oximetry 93 100 Oxygen Delivery Method Nasal Cannula Oxymask Oxygen Flow Rate 3 6 Sepsis Recent Fever Within 48 Hours Sepsis New/Unexplained Change in Mental Status Sepsis Action Taken by Nursing Laboratory Data Attestation: I reviewed the patient's lab results. 06/05/24 04:15 06/05/24 04:15 Lab Results 06/04/24 06/04/24 06/04/24 Range/Units 08:08 09:03 09:09 WBC 30.75 H* (4.8-10.8) K/ul RBC 3.19 L (4.20-5.40) M/uL Hgb 10.9 L (12.0-16.0) g/dl Hct 34.1 L (37.0-47.0) % MCV 106.9 H (80.0-100.0) fL MCH 34.2 H (25.0-34.0) pg MCHC 32.0 (32.0-36.0) g/dL RDW Std Deviation 61.4 H (36.4-46.3) fL RDW Coeff of Bhavin 16.0 H (11.5-14.5) % Plt Count 185 (130-400) K/uL MPV 10.9 (9.4-12.4) fL Immature Gran % (Auto) 2.8 % Neut % (Auto) 84.8 % Lymph % (Auto) 4.1 % [place] % (Auto) 7.2 % Eos % (Auto) 0.6 % Baso % (Auto) 0.5 % Neut # (Auto) 26.07 H (1.40-6.50) K/uL Lymph # (Auto) 1.26 (1.20-3.40) K/uL [place] # (Auto) 2.21 H (0.11-0.59) K/uL Eos # (Auto) 0.19 (0.00-0.50) K/uL Baso # (Auto) 0.16 (0.00-0.20) K/uL Immature Gran # (Auto) 0.86 H (0.01-0.20) K/uL Polychromasia 1+ Stomatocytes 1+ PT 10.8 (9.0-12.0) Seconds INR 1.0 (0.9-1.1) VBG pH Cancelled 7.40 VBG pCO2 Cancelled 51 H VBG pO2 Cancelled 43 VBG HCO3 Cancelled 32 VBG O2 Saturation Cancelled 74.7 VBG Base Excess Cancelled 5.5 Barometric Pressure Cancelled Sodium 139 (136-145) mmol/L Potassium 3.2 L (3.5-5.1) mmol/L Chloride 93 L (98-107) mmol/L Carbon Dioxide 30 (21-32) mmol/L Anion Gap 16 H (3-11) BUN 46 H (6-23) mg/dl Creatinine 7.29 H* (0.6-1.2) mg/dl Est Cr Clr Drug Dosing 7.5 ml/min eGFR 5.35 BUN/Creatinine Ratio 6.3 L (10-20) Glucose 127 H (70-99(Fasting)) mg/dl Lactate (0.4-2.0) mmol/L Calcium 9.5 (8.6-10.3) mg/dl Phosphorus 4.3 (2.5-4.9) mg/dl Magnesium 2.0 (1.7-2.4) mg/dl Total Bilirubin 0.4 (0.2-1.0) mg/dl AST 20 (13-39) U/L ALT 9 (7-52) U/L Alkaline Phosphatase 79 (34-104) U/L Troponin I High Sens 72.8 H* (0-14) pg/ml Total Protein 6.4 (6.0-8.3) gm/dl Albumin 3.4 (3.4-5.0) gm/dl Globulin 3.0 (2.5-4.0) gm/dl Albumin/Globulin Ratio 1.1 (0.9-2) Lipase 11 (11-82) U/L Procalcitonin 5.81 H (0-0.5) ng/ml TSH 3.834 (0.300-4.500) uIu/ml Adenovirus (PCR) Not Detected (NotDetected) B. pertussis DNA (PCR) Not Detected (NotDetected) B.parapertussis DNA PCR Not Detected (NotDetected) C. pneumoniae DNA (PCR) Not Detected (NotDetected) Coronavirus OC43 (PCR) Not Detected (NotDetected) Coronavirus HKU1 (PCR) Not Detected (NotDetected) Coronavirus 229E (PCR) Not Detected (NotDetected) SARS-CoV-2 (PCR) Not Detected (NotDetected) Coronavirus NL63 (PCR) Not Detected (NotDetected) Human Metapneumovir PCR Not Detected (NotDetected) Influenza Type A (PCR) Not Detected (NotDetected) Influenza Type B (PCR) Not Detected (NotDetected) M. pneumoniae (PCR) Not Detected (NotDetected) Parainfluenza 1 (PCR) Not Detected (NotDetected) Parainfluenza 2 (PCR) Not Detected (NotDetected) Parainfluenza 3 (PCR) Not Detected (NotDetected) Parainfluenza 4 (PCR) Not Detected (NotDetected) RSV (PCR) Not Detected (NotDetected) Entero/Rhino (PCR) Not Detected (NotDetected) 06/04/24 06/04/24 Range/Units 09:14 10:02 WBC (4.8-10.8) K/ul RBC (4.20-5.40) M/uL Hgb (12.0-16.0) g/dl Hct (37.0-47.0) % MCV (80.0-100.0) fL MCH (25.0-34.0) pg MCHC (32.0-36.0) g/dL RDW Std Deviation (36.4-46.3) fL RDW Coeff of Bhavin (11.5-14.5) % Plt Count (130-400) K/uL MPV (9.4-12.4) fL Immature Gran % (Auto) % Neut % (Auto) % Lymph % (Auto) % [place] % (Auto) % Eos % (Auto) % Baso % (Auto) % Neut # (Auto) (1.40-6.50) K/uL Lymph # (Auto) (1.20-3.40) K/uL [place] # (Auto) (0.11-0.59) K/uL Eos # (Auto) (0.00-0.50) K/uL Baso # (Auto) (0.00-0.20) K/uL Immature Gran # (Auto) (0.01-0.20) K/uL Polychromasia Stomatocytes PT (9.0-12.0) Seconds INR (0.9-1.1) VBG pH VBG pCO2 VBG pO2 VBG HCO3 VBG O2 Saturation VBG Base Excess Barometric Pressure Sodium (136-145) mmol/L Potassium (3.5-5.1) mmol/L Chloride (98-107) mmol/L Carbon Dioxide (21-32) mmol/L Anion Gap (3-11) BUN (6-23) mg/dl Creatinine (0.6-1.2) mg/dl Est Cr Clr Drug Dosing ml/min eGFR BUN/Creatinine Ratio (10-20) Glucose (70-99(Fasting)) mg/dl Lactate 2.7 H* (0.4-2.0) mmol/L Calcium (8.6-10.3) mg/dl Phosphorus (2.5-4.9) mg/dl Magnesium (1.7-2.4) mg/dl Total Bilirubin (0.2-1.0) mg/dl AST (13-39) U/L ALT (7-52) U/L Alkaline Phosphatase (34-104) U/L Troponin I High Sens 71.9 H* (0-14) pg/ml Total Protein (6.0-8.3) gm/dl Albumin (3.4-5.0) gm/dl Globulin (2.5-4.0) gm/dl Albumin/Globulin Ratio (0.9-2) Lipase (11-82) U/L Procalcitonin (0-0.5) ng/ml TSH (0.300-4.500) uIu/ml Adenovirus (PCR) (NotDetected) B. pertussis DNA (PCR) (NotDetected) B.parapertussis DNA PCR (NotDetected) C. pneumoniae DNA (PCR) (NotDetected) Coronavirus OC43 (PCR) (NotDetected) Coronavirus HKU1 (PCR) (NotDetected) Coronavirus 229E (PCR) (NotDetected) SARS-CoV-2 (PCR) (NotDetected) Coronavirus NL63 (PCR) (NotDetected) Human Metapneumovir PCR (NotDetected) Influenza Type A (PCR) (NotDetected) Influenza Type B (PCR) (NotDetected) M. pneumoniae (PCR) (NotDetected) Parainfluenza 1 (PCR) (NotDetected) Parainfluenza 2 (PCR) (NotDetected) Parainfluenza 3 (PCR) (NotDetected) Parainfluenza 4 (PCR) (NotDetected) RSV (PCR) (NotDetected) Entero/Rhino (PCR) (NotDetected) Administered Medications Atorvastatin Calcium (Atorvastatin 40 Mg Tab) 80 mg PO QPM [facility] Stop: 07/04/24 20:59 Last Admin: 06/05/24 00:11 Dose: Not Given Documented By: BOSTON Bisacodyl (Bisacodyl 5 Mg Tabec) 5 mg PO DAILY [facility] Stop: 07/05/24 08:59 Last Admin: 06/05/24 10:18 Dose: Not Given Documented By: DONAVAN Carbidopa/Levodopa (Carbidopa/Levodopa 25/100mg Tab) 1 tab PO TIDM [facility] Stop: 07/04/24 13:29 Last Admin: 06/05/24 12:00 Dose: 1 tab Documented By: Admin: 06/05/24 10:05 Dose: 1 tab Documented By: Admin: 06/04/24 17:41 Dose: Not Given Documented By: Admin: 06/04/24 17:40 Dose: Not Given Documented By: ANGELITA Docusate Sodium (Docusate Sodium 100 Mg Cap) 100 mg PO DAILY [facility] Stop: 07/05/24 08:59 Last Admin: 06/05/24 10:08 Dose: Not Given Documented By: DONAVAN Escitalopram Oxalate (Escitalopram Oxalate 10 Mg Tab) 10 mg PO QAM [facility] Stop: 07/05/24 08:59 Last Admin: 06/05/24 10:08 Dose: 10 mg Documented By: DONAVAN Fluticasone/Vilanterol (Fluticasone/Vilanterol 200/25mcg 14 Puffs/Inhaler) 1 puffs INH BID [facility] Stop: 07/04/24 20:59 Last Admin: 06/05/24 10:07 Dose: 1 puffs Documented By: Admin: 06/05/24 00:11 Dose: Not Given Documented By: BOSTON Piperacillin Sod/Tazobactam Sod (Zosyn) 4.5 gm in 100 mls @ 25 mls/hr IV Q12H [facility]; Protocol Stop: 06/09/24 21:59 Last Admin: 06/05/24 10:57 Dose: 25 mls/hr Documented By: Infusion: 06/05/24 03:58 Dose: Infused Documented By: Admin: 06/05/24 00:29 Dose: 25 mls/hr Documented By: BOSTON Levothyroxine Sodium (Levothyroxine Sodium 125 Mcg Tablet) 125 mcg PO DAILYBB [facility] Stop: 07/05/24 06:29 Last Admin: 06/05/24 05:28 Dose: Not Given Documented By: BOSTON Melatonin (Melatonin 3 Mg Tab) 9 mg PO HS [facility] Stop: 07/04/24 20:59 Last Admin: 06/05/24 00:11 Dose: Not Given Documented By: BOSTON Midodrine (Midodrine Hcl 2.5 Mg Tab) 5 mg PO TID@0700,1200,1600 [facility] Stop: 07/04/24 15:59 Last Admin: 06/05/24 12:00 Dose: 5 mg Documented By: Admin: 06/05/24 10:05 Dose: 5 mg Documented By: Admin: 06/04/24 17:40 Dose: Not Given Documented By: ANGELITA Miscellaneous (Auryxia 210 Mg (Ferric Citrate) Order Awaiting Action) 1 each N/A QS [facility] Stop: 07/04/24 15:59 Last Admin: 06/05/24 08:37 Dose: Not Given Documented By: Admin: 06/05/24 00:12 Dose: Not Given Documented By: Admin: 06/04/24 17:41 Dose: Not Given Documented By: ANGELITA Mupirocin (Mupirocin 2% Oint 22 Gm Tube) 1 appln EXT Q12H [facility] Stop: 07/04/24 17:59 Last Admin: 06/05/24 06:17 Dose: 1 appln Documented By: Admin: 06/04/24 19:39 Dose: 1 appln Documented By: BOSTON Nystatin (Nystatin Powder 15gm Btl) 1 appln EXT HS [facility] Stop: 07/04/24 20:59 Last Admin: 06/05/24 00:29 Dose: 1 appln Documented By: BOSTON Pantoprazole Sodium (Pantoprazole 40 Mg Tab) 20 mg PO BID [facility] Stop: 07/04/24 20:59 Last Admin: 06/05/24 00:12 Dose: Not Given Documented By: BOSTON Pregabalin (Pregabalin 100 Mg Cap) 100 mg PO BID [facility] Stop: 07/04/24 20:59 Last Admin: 06/05/24 00:12 Dose: Not Given Documented By: BOSTON Vitamin B Complex/Folic Acid (Nephrocaps) 1 cap PO DAILY [facility] Stop: 07/05/24 08:59 Last Admin: 06/05/24 10:06 Dose: 1 cap Documented By: DONAVAN Vitamin D (Cholecalciferol 25 Mcg (1000 Units) Tab) 25 mcg PO DAILY [facility] Stop: 07/05/24 08:59 Last Admin: 06/05/24 10:07 Dose: 25 mcg Documented By: DONAVAN Discontinued Medications Bisacodyl (Bisacodyl 10 Mg Supp) 10 mg MA NOW STA Stop: 06/04/24 11:48 Last Admin: 06/04/24 17:40 Dose: Not Given Documented By: ANGELITA Sodium Chloride (Nss) 500 mls @ 999 mls/hr IV .Q31M ONE Stop: 06/04/24 09:34 Last Infusion: 06/04/24 10:34 Dose: Infused Documented By: Admin: 06/04/24 09:42 Dose: 999 mls/hr Documented By: BROWN Cefepime HCl (Maxipime 2000mg) 2,000 mg in 20 mls @ 5 mls/min IV NOW STA; Protocol Stop: 06/04/24 09:07 Last Admin: 06/04/24 09:42 Dose: 5 mls/min Documented By: BROWN Vancomycin HCl 2,250 mg/ (Sodium Chloride) 545 mls @ 200 mls/hr IV NOW ONE Stop: 06/04/24 11:47 Last Infusion: 06/04/24 13:08 Dose: Infused Documented By: Admin: 06/04/24 10:04 Dose: 200 mls/hr Documented By: BROWN Piperacillin Sod/Tazobactam Sod (Zosyn) 4.5 gm in 100 mls @ 200 mls/hr IV 1309 ONE; Protocol Stop: 06/04/24 13:38 Last Infusion: 06/04/24 13:59 Dose: Infused Documented By: Admin: 06/04/24 13:25 Dose: 200 mls/hr Documented By: BROWN Sodium Chloride (Nss) 500 mls @ 999 mls/hr IV .Q31M ONE Stop: 06/04/24 14:22 Last Infusion: 06/04/24 16:33 Dose: Infused Documented By: Admin: 06/04/24 15:19 Dose: 999 mls/hr Documented By: BROWN Pantoprazole Sodium 80 mg/ (Dextrose) 120 mls @ 480 mls/hr IV ONE STA Stop: 06/05/24 03:55 Last Infusion: 06/05/24 04:15 Dose: Infused Documented By: [facility] Admin: 06/05/24 03:57 Dose: 480 mls/hr Documented By: BOSTON Albumin Human (Albumin 25%) 25 gm in 100 mls @ 50 mls/hr IV ONE ONE Stop: 06/05/24 06:08 Last Infusion: 06/05/24 06:19 Dose: Infused Documented By: [facility] Admin: 06/05/24 04:19 Dose: 50 mls/hr Documented By: [facility] Potassium Chloride (Potassium Chloride Crtab 20 Meq Tabcr) 40 meq PO NOW STA Stop: 06/05/24 09:33 Last Admin: 06/05/24 10:04 Dose: 40 meq Documented By: DONAVAN Imaging Data Radiologist's Impression: Chest X-Ray 06/04/24 07:33 EXAM: XR chest 1V portable CLINICAL HISTORY: Chest pain, nonspecific TECHNIQUE: X-ray chest was performed in 1 view: PA projection. COMPARISON: Prior chest angioCT dated 05/21/2024 and previous chest CR dated 06/04/2024 FINDINGS: Prominent bilateral hilar with increased bronchovascular markings and possible cephalization. Opacity in the cardiophrenic angle represents the epicardial fat pad. Blunting of the right costophrenic angles. Patchy haziness in the bilateral lung anand predominantly in the lower zones. The apparent widening of the mediastinum. Mild to moderate cardiomegaly. Degenerative changes in the thoracic cage. IMPRESSION: 1. The imaging findings are likely due to the pulmonary edema, however, the possibility of infection cannot be ruled out. 2. No interval changes are seen regarding the previous examinations. Electronically signed by Gulshan Bowie 06-04-2024 08:56 AM Abdomen/Pelvis CT 06/04/24 09:[address] WITHOUT CONTRAST CT DOSE: 2996 HISTORY: ams, sepsis, esrd TECHNIQUE: Multiaxial CT images of the abdomen and pelvis were performed without contrast. A dose lowering technique was utilized adhering to the principles of ALARA. COMPARISON STUDY: 05/23/2022 FINDINGS: There are severe coronary artery calcifications. ABDOMEN: Liver, gallbladder, spleen, pancreas, and adrenal glands have an unremarkable non-IV contrasted appearance. Stable atrophy of the kidneys. There is no hydronephrosis bilaterally. There are a few small nonobstructing renal calculi. There are scattered atherosclerotic calcifications. No abdominal aortic aneurysm. Pelvis: Uterus and adnexa are grossly unremarkable. Urinary bladder is empty. There is moderate retained stool. There is mild colonic diverticulosis. No acute diverticulitis. There is mild wall thickening at the colon diffusely most prominent at the rectosigmoid. No other bowel inflammation or obstruction. No free fluid, free air, or abscess. No enlarged adenopathy. There is severe lumbar degenerative disc disease. There are severe degenerative changes at the hips. IMPRESSION: Mild colitis. No other acute findings. ACT 112: Negative or not required by law. The above report was generated using voice recognition software. It may contain grammatical, syntax or spelling errors. Electronically signed by: Zurdo Sanchez M.D. 06/04/2024 9:[address] 06/04/24 09:03 CT OF THE CHEST WITHOUT IV CONTRAST CLINICAL HISTORY: Altered mental status. Sepsis. End-stage renal disease. COMPARISON STUDY: Chest CT May 21, 2024. Chest radiograph performed earlier today. CT DOSE: 2996.11 mGy.cm TECHNIQUE: Axial images of the chest were obtained without IV contrast. Images were reviewed in the axial, sagittal, and coronal planes. IV contrast was not administered for this examination. Automated exposure control was utilized for the study. A dose lowering technique was utilized adhering to the principles of ALARA. FINDINGS: No enlarged axillary, mediastinal or hilar lymph nodes are present. Moderate cardiomegaly and extensive coronary artery calcification are again noted. There is no pericardial effusion. No pneumothorax or pleural effusion is present. Multifocal groundglass opacities within the lungs are similar to CT of May 21, 2024. No confluent consolidation is present. Central airways are patent. Lungs are suboptimally assessed due to respiratory motion. No discrete pulmonary nodules are identified. No acute fractures are identified. There is extensive anterior osteophytosis of the thoracic spine. IMPRESSION: 1. No change in multifocal groundglass opacities since CT of May 21, 2024. These are nonspecific and may represent an infectious process or pulmonary edema. 2. Moderate cardiomegaly and extensive coronary artery calcification. 3. No pneumothorax or pleural effusion. ACT 112: Negative or not required by law. Electronically signed by: Bryn Tanner M.D. 06/04/2024 9:[address] 06/04/24 09:03 CT OF THE HEAD WITHOUT CONTRAST CLINICAL HISTORY: Altered mental status. COMPARISON STUDY: Head CT May 21, 2024. TECHNIQUE: Helical axial images of the head were obtained without IV contrast. Automated exposure control was utilized for the study. A dose lowering technique was utilized adhering to the principles of ALARA. FINDINGS: No acute intracranial hemorrhage, midline shift or mass effect is present. The ventricular system is stable. White matter hypodensities are unchanged and favor small vessel disease. Sulcal enlargement is due to atrophy. This is unchanged. The basal cisterns are patent. No extra-axial collections are present. There are no findings to suggest acute dural sinus thrombosis or acute territorial infarct. There are no calvarial fractures. A small amount of fluid within the bilateral mastoid air cells is unchanged. Mucosal thickening within the right maxillary and less in the sinuses is unchanged. There are postoperative findings within the sinuses. IMPRESSION: No acute intracranial findings. No change in appearance of the brain. ACT 112: Negative or not required by law. Electronically signed by: Bryn Tanner M.D. 06/04/2024 9:45 AM Discharge Plan Visit Data Chief Complaint: Lethargic Stated Complaint: LETHARGIC ED Provider: Stanley Harper Discharge Problem: Acute respiratory failure with hypoxia, Encephalopathy, ESRD (end stage renal disease) on dialysis, Pneumonia, Pneumonitis Patient Disposition: Admitted As Inpatient Discharge Instructions Interventions: ED Discharge Assessment Last Done: 06/04/24 15:29 Discharge Problem: Encephalopathy Qualifiers: Encephalopathy type: unspecified encephalopathy Qualified Code(s): G93.40 - Encephalopathy, unspecified Pneumonia Qualifiers: Pneumonia type: due to unspecified organism Laterality: bilateral Lung location: unspecified part of lung Qualified Code(s): J18.9 - Pneumonia, unspecified organism
--- OUTSIDE RECORDS SUMMARY | 2024-06-04 08:30 | External Medical Summary | Summary of Care ---
Author Name Unknown Organization [facility] Address [address] [place] [address] Phone [phone] Care Team Providers Care Recruiter Specialist Name Role Phone Howie Gilbert MD Primary Care Provide r Reason for Visit * Reason Onset Date Comments Mcc Visit - Readmission 06/01/2024 Encounter Details Date Type Department Care Team (Latest Contact Info) Description 06/01/2024 2:30 PM EDT Mcc Visit [facility] at [address] [place] [address] Howie Gilbert MD [address] [place] [address] [place] [id number] Chest pain, unspecified type*; Other hypervolemia; Diabetes mellitus with ESRD (end-stage renal disease) ([facility]); ESRD (end stage renal disease) on dialysis (HCC); 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[facility]); Moderate episode of recurrent major depressive disorder ([facility]); Chronic heart failure with preserved ejection fraction (HCC); COPD, group B, by GOLD 2017 classification ([facility]); AVF (arteriovenous fistula) ([facility]); Anemia in end-stage renal disease ([facility]); Orthostatic hypotension Allergies No known active allergiesdocumented as of this encounter (statuses as of 06/02/2024) Medications ABHISHEK DELICA LANCETS 33G MISC Up to 4 [...] g 11 02/13/2023 10:42 AM EST 11/10/19 Active Nystatin 042533 UNIT/GM External Powder (Nystop) Apply topically to [...] as of this encounter (statuses as of 06/02/2024) Active Problems Problem Noted Date Diagnosed Date Current moderate episode of major depressive dis order 02/11/2024 History of 2019 novel coronavirus disease (COVID -19) 12/04/2023 Sinus bradycardia 11/04/2023 Orthostatic hypotension 11/04/2023 History of colon polyps 05/05/2023 Morbid (severe) obesity due to excess calories [...] as of this encounter (statuses as of 06/02/2024) Resolved Problems Problem Noted Date Diagnosed Date Resolved Date Influenza A 05/06/2024 06/01/2024 Full code status 03/27/2023 06/01/2024 Problem with dialysis access 03/09/2023 03/18/2023 UTI (urinary tract infection) 03/09/2023 03/19/2023 Serrated polyp of colon 09/20/202204/17 Overview (10/03/2022): 7 mm descending colon BMI 38.0-38.9,adult 09/12/2022 03/19/19 Overview (09/12/2022): 210 Major depressive disorder, r ecurrent episode, moderate 08/09/2022 08/09/2022 Assessment & Plan (06/17/2022 1:54 PM EDT): Stable on sertraline Rectal bleeding 08/09/2022 01/29/2023 Assessment & Plan (08/09/2022 11:02 AM EDT): Needs [facility]oscopy scheduled -[facility] Palliative care encounter 06/07/2021 Hypothyroidism [...] as of this encounter (statuses as of 06/02/2024) Immunizations Name Administration Dates Next Due COVID-19 mRNA, LNP-s, No Pre serve, 2-Dose Series ([employer]) 01/02/2021,06/21/2020,05/24/2020 COVID-19, mRNA, LNP-s, PF, B ooster, [...] doing errands alone such as visiting a doctor’s office or shopping? (15 years old or [...] Progress Notes * Howie Gilbert MD - 06/01/2024 4:43 PM EDT READMISSION NOTE TRANSITION EVENT: Type: Readmission to SNF from Hospital Date: May 27 Code Status: No Code Subjective: Kami Hassan is a 78 year old female. Date of : 1945 Chief Complaint Patient presents with Mcc Visit - Readmission This note pertains to care provided at [facility] [address]. Please see facility medical record for original note. This note is not to be edited or addended in [facility]. Editing or addending needs to occur in the facilities medical record. S: Kami Hassan has been readmitted to [facility] from [facility] for emt intermediate care. Readmitted for: emt intermediate care Patient was admitted to [facility] from 05/21/24-05/27/24 after being sent to the hospital by dialysis due to chest pain, lethargy, hypoxia, and confusion with 1 hour left of her dialysis session. Patient hadjust been discharged from [facility] on 05/20/24 for admission with acute respiratory failure due to influenza A infection requiring intubation. She completed a course of antibiotics and was discharged on room air. In the ED, her oxygen was 88% on room air and she was afebrile. Troponin was 40 and remained flat so ACS was ruled out. She was diagnosed with acute respiratory failure with hypoxia due to volume overload. She underwent dialysis while admitted. Blood cultures were negative. Head CT was unremarkable. She was treated with 5 days of cefepime and doxycycline. She was seen by palliative care and after discussion, POLST was completed and patient now DNR/DNI. No medications were changed. Past Medical History: Patient Active Problem List Diagnosis Meniere's disease, cochlear, active Hypothyroidism due to acquired atrophy of thyroid Steatohepatitis, non-alcoholic Obesity Restless leg syndrome Dyslipidemia, goal LDL below 100 AYSHA (generalized anxiety disorder) RENÉ on CPAP 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 factor ([facility]) Primary parkinsonism ([facility]) History of non-ST elevation myocardial infarction (NSTEMI) Venous stasis dermatitis of both lower extremities COPD, group B, by GOLD 2017 classification ([facility]) Chronic heart failure with preserved ejection fraction ([facility]) Iron deficiency anemia due to chronic blood loss Diabetes mellitus with ESRD (end-stage renal disease) ([facility]) Personal history of fall History of CVA (cerebrovascular accident) AVF (arteriovenous fistula) (HCC) 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HCC) Acquired hypothyroidism ESRD (end stage renal disease) on dialysis (HCC) 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) Morbid (severe) obesity due to excess calories (HCC) History of colon polyps Sinus bradycardia Orthostatic hypotension History of 2018 novel coronavirus disease (COVID-19) Current moderate episode of major depressive disorder (HCC) Past Medical History: Diagnosis Date (HFpEF) heart failure with preserved ejection fraction (HCC) Acute on chronic diastolic (congestive) heart failure ([facility]) 03/04/2020 [facility] Allergic rhinitis 02/15/2000 acute BMI 38.0-38.9,adult 08/28/2009 Chronic Sinusitis Unspecified Controlled substance agreement signed 11/25/2016 COVID-19 10/23/2021 Cystitis 05/23/2022 admitted [facility] home on cefuroxime Dyslipidemia, goal LDL below 100 Esophagitis determined by biopsy 04/19/2022 LA grade B esophagitis, inflammation gastric antrum, body and duodenum AYSHA (generalized anxiety disorder) Hearing loss, sensorineural 01/2005 History of non-ST elevation myocardial infarction (NSTEMI) 08/24/2018 HTN (hypertension) Meniere's disease Multiple falls 04/20/2019 History of falls on the pl NSTEMI (non-ST elevated myocardial infarction) ([facility]) 09/03/2018 Parkinson disease (HCC) Rectal bleeding Restless leg syndrome 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 factor ([facility]) 07/18/2016 SDH (subdural hematoma) ([facility]) 04/20/2019 acute Serrated polyp of colon 09/20/2022 7 mm descending colon Sleep apnea Tinnitus 01/2005 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 Del Real CARPAL TUNNEL SURGERY Bilateral COLONOSCOPY, DIAGNOSTIC (RECTUM) 11/27/2015 normal, repeat 10 yrs/COLONOSCOPY FLEXIBLE PROXIMAL DIAGNOSTIC performed by Garrett Chang MD at ENDOSCOPY [facility] COLONOSCOPY, DIAGNOSTIC (RECTUM) 09/20/2022 serrated polyp, fair prep / [facility] EGD, FLEXIBLE, DIAGNOSTIC 04/19/2022 esophagitis, repeat 8-12 wks / [facility] EGD, FLEXIBLE, DIAGNOSTIC 06/26/2022 normal, retained food / [facility] EGD, FLEXIBLE, DIAGNOSTIC N/A 01/24/2023 normal/EGD/[place] EXPLORATION OF MAXILLARY SINUS 03/17/1995 Sinus Surgery HYSTEROSCOPY,DIAGNOSTIC 2022 atrophic endometrium, endometrial polyp INJECTION LUMBAR/SACRAL 07/31/2015 INJECTION SPINE LUMBAR OR SACRAL performed by Quincy Prado DO at OR [facility] INJECTION LUMBAR/SACRAL 08/15/2015 INJECTION SPINE LUMBAR OR SACRAL performed by Quincy Prado DO at OR [facility] INSER MARLI CAT,W/O PUMP;5YR/OLD N/A 11/04/2019 INSERT TUNNELED CENTRAL VENOUS CATHETER AGE 5 OR OLDER performed by Ortega Montez DO at OR [facility] INSER MARLI CAT,W/O PUMP;5YR/OLD Right 03/09/2023 INSERT TUNNELED CENTRAL VENOUS CATHETER AGE 5 OR OLDER performed by Fred Brown MD at [place] [facility] INTRO CATH DIALYSIS CIRCUIT W/TRANSLUM BALLOON ANGIOPLASTY Right 03/09/2023 AV FISTULOGRAM & PERIPHERAL ANGIOPLASTY performed by Fred Brown MD at [place] [facility] LIGATE/CUT OVIDUCT(S) MISCELLANEOUS ORDER ([facility] ONLY) Bilateral Heel surgery MISCELLANEOUS ORDER ([facility] ONLY) Right 3rd toe nerve decompression, Dr. 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 (Household - for ages 0-17 years): [...] Stability Do you currently live in a residential or have no steady place to sleep [...] of patient's allergies indicates: No Known Allergies Results for orders placed or performed in visit on 05/05/24 INFLUENZA A/B RSV SARS-COV2,PCR Result Value Ref Range SARS-CoV-2 (COVID-19) Result Negative Negative Influenza A PCR Result Positive (A) Negative Influenza B PCR Result Negative Negative RSV PCR Result Negative Negative *Note: Due to a large number of [...] - OUTSIDE LAB 0.617 01/30/2020 12:00 AM Review of Systems: Constitutional ROS: No change in weight, + generalized weakness, and No fevers, sweats, or chills Eye ROS: No recent significant change in vision, No eye pain, redness, discharge and No diplopia Ear ROS: No ear pain, No drainage, No tinnitus or vertigo and +very hard of hearing Nose ROS: No nasal stuffiness and No significant epistaxis Mouth/Throat ROS: No thrush or No sore throat Pulmonary ROS: No cough, sputum, or hemoptysis, No wheezing, + chronic shortness of breath and +recent admission with influenza A and respiratory failure Cardiovascular ROS: No chest pain, No edema, No palpitations and No syncope. +CHF and orthostasis Gastrointestinal ROS: No abdominal pain, No change in bowel habits, No significant change in appetite, No nausea, vomiting, diarrhea, or constipation and + dysphagia Musculoskeletal/Extremities ROS: +OA Skin/Integumentary ROS: No rash and No itching Neurologic ROS: +dementia related to Parkinson's disease Psychiatric ROS: + depression ADL skills dependent Ambulates non ambulating OBJECTIVE: PHYSICAL EXAM: I reviewed the most recent facilities’ vitals. Refer to vital signs flowsheet in residential chart. General: alert, no distress, well nourished and well developed, +morbidly obese Head: Normocephalic, No masses, lesions, tenderness or abnormalities Eye Exam: Conjunctiva are pink and non-injected, sclera clear Ears: External ears normal Nose: no mucosal erythema, no mucosal edema, no purulent discharge Oropharynx: no exudate, no erythema, lips, buccal mucosa, and tongue normal and mucous membranes are moist Neck: supple, no adenopathy, non-tender, neck veins flat, trachea midline Heart: regular rate & rhythm, distant heart tones, no murmurs and no gallops Lungs: normal respiratory rate and rhythm, no chest wall tenderness, lungs clear to auscultation. Diminished Pulses: radial=2/4 Abdomen: abdomen soft, non-tender, normal bowel sounds and no masses or organomegaly Extremities: no edema, no clubbing, no cyanosis Neuro Exam: alert & oriented x 3 with slow speech, no focal motor/sensory deficits ASSESSMENT: Chest pain, unspecified type (Primary)--resolved. Acute coronary syndrome ruled out. Other hypervolemia--treated with hemodialysis. Diabetes mellitus with ESRD (end-stage renal disease) ([facility])--diabetes is diet controlled. Managed by hemodialysis. ESRD (end stage renal disease) on dialysis ([facility])--as above. 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[facility])--continue Sinemet. Moderate episode of recurrent major depressive disorder ([facility])--continue Lexapro 10 mg daily. Chronic heart failure with preserved ejection fraction ([facility])--managed by dialysis. COPD, group B, by GOLD 2017 classification ([facility])--continue Breo and oxygen. AVF (arteriovenous fistula) (HCC) Anemia in end-stage renal disease (HCC)--continue Auryxia Orthostatic hypotension--continue midodrine. PLAN: 1. Continue present medication(s): 2. Admission orders, medications, labs, hospital records and care plan reviewed. 3. Continue current treatment plan as ordered. 4. Care plan reviewed. 5. Advanced Directives were discussed: The patient is a DNR 6. Senior Care Home Treatment Given: n/a Electronically signed by: Howie Gilbert MD I spent a total of 40-54 minutes (exact time 50 mins) on the date of service in [...] secondary to blood loss (chronic) Primary parkinsonism ([facility]) Paralysis agitans Major depressive disorder, recurrent episode, moderate (HCC) Major depressive disorder, recurrent episode, moderate Fatigue, unspecified type- Primary AVF (arteriovenous fistula) ([facility]) Arteriovenous fistula, acquired Chronic heart failure with [...] Rectal bleeding Hemorrhage of rectum and anus Chest pain, unspecified type- Primary Other hypervolemia Diabetes mellitus with ESRD (end-stage renal disease) ([facility]) Type II or unspecified type diabetes mellitus with renal manifestations, not stated as uncontrolled ESRD (end stage renal disease) on dialysis (HCC) End stage renal disease 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[facility]) Moderate episode of recurrent major depressive disorder (HCC) Chronic heart failure with preserved ejection fraction (HCC) COPD, group B, by GOLD 2017 classification ([facility]) AVF (arteriovenous fistula) (HCC) Arteriovenous fistula, acquired Anemia in end-stage renal disease (HCC) Anemia in chronic kidney disease Orthostatic hypotension documented in this encounter Advance Directives Documents on File Type Date Recorded Patient Table Games Manager Expl anation Power of Cadd Operator 12/16/2018 10:33 AM Wesley Schmitt Power of Cadd Operator - Medical Low Pg 6 - [...] Age nt (per Health Care Power of Cadd Operator document) Carmen Hughes Adult Child Health Care Agen t (per Health Care Power of Cadd Operator document) Jeanne Schmitt Adult Child Health Care Agen t (per Health Care Power of Cadd Operator document) Care Teams Recruiter Specialist Relationship Specialty Start Date End Date Howie Gilbert MD [address] [place] [address] [place] [address] PCP - General Family Medicine 11/14/23 documented as of this encounter
--- OUTSIDE RECORDS SUMMARY | 2024-06-04 08:30 | External Medical Summary | Summary of Care ---
Author Name Unknown Organization [facility] Address [address] [place] [address] Phone [phone] Care Team Providers Care Division Commander Name Role Phone Howie Gilbert MD Primary Care Provide r Encounter Details Date Type Department Care Team (Late st Contact Info) Description 05/24/2024 Telephone Nephrology, [facility] [address] [place] [address] Kevin Bruce MD [address] [place] [address] Allergies No known active allergiesdocumented as of this encounter (statuses as of 05/25/2024) Medications ONETOUCH DELICA LANCETS 33G MISC Up to 4 times daily 100 Each 6 11/25/19 15 Active Glucose Blood (ONETOUCH ULTRA BLUE) STRP Use as directed 4 times a day as needed (Diabetes). Use up to four times a day as directed 100 Strip 11 02/04/20 18 Active Nebulizers (NEBULIZER COMPRESSOR) MISCIndications:CO PD, group B, by GOLD 2017 classification ([facility] [...] )Indications:COPD, group B, by GOLD 2017 classification ([facility] [...] 10:42 AM EST 11/10/19 23 Active Nystatin 805466 UNIT/GM External Powder (Nystop) Apply topically to [...] as of this encounter (statuses as of 05/25/2024) Active Problems Problem Noted Date Diagnosed Date [...] as of this encounter (statuses as of 05/25/2024) Resolved Problems Problem Noted Date Diagnosed Date [...] (08/09/2022 11:02 AM EDT): Needs colonoscopy scheduled -[facility] Palliative care encounter 06/07/2021 Hypothyroidism [...] as of this encounter (statuses as of 05/25/2024) Immunizations Name Administration Dates Next Due COVID-19 mRNA, LNP-s, No Pre serve, 2-Dose Series ([employer]) 01/02/2021,06/21/2020,05/24/2020 COVID-19, mRNA, LNP-s, PF, B ooster, [...] encounter Miscellaneous Notes * Telephone Encounter - Kevin Bruce MD - 05/24/2024 4:35 PM EDT I called to discuss the challenges of dialysis. Patient has low blood pressure. wasconcerned that patient is not dialyzing well outpatient. Discussed that we may try to slow down thepump speed and see how she does. Dr. Kevin Bruce documented in this encounter Plan of Treatment [...] Documents on File Type Date Recorded Patient Dental Technician Instructor Expl anation Power of Endocrinology Specialist 12/16/2018 10:33 AM Wesley Rubin Oskar Power of Endocrinology Specialist - Medical Low Pg 6 - [...] Age nt (per Health Care Power of Endocrinology Specialist document) Carmen Hughes Adult Child Health Care Agen t (per Health Care Power of Endocrinology Specialist document) Jeanne Schmitt Adult Child Health Care Agen t (per Health Care Power of Endocrinology Specialist document) Care Teams Division Commander Relationship Specialty Start Date End Date Howie Gilbert MD [address] [place] [id number] PCP - General Family Medicine 11/14/23 documented as of this encounter
--- OUTSIDE RECORDS SUMMARY | 2024-06-04 08:31 | External Medical Summary | Summary of Care ---
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 General Name Role Phone Howie Gilbert MD Primary Care Provide r Reason for Visit * Reason Onset Date Comments Advice 05/24/2024 Encounter Details Date Type Department Care Team (Late st Contact Info) Description 05/24/2024 Telephone Nephrology, [facility] [address] [place] [address] Erica Tobar MD [address] [place] [address] Advice Allergies No known active allergiesdocumented as [...] PD, group B, by GOLD 2017 classification ([place] [...] )Indications:COPD, group B, by GOLD 2017 classification ([place] [...] 10:42 AM EST 11/10/19 23 Active Nystatin 284043 UNIT/GM External Powder (Nystop) Apply topically to [...] a week 120 Capsule 02/24/20 24 Active Midodrine HCl 5 MG Oral [...] (08/09/2022 11:02 AM EDT): Needs colonoscopy scheduled -[facility] Palliative care encounter 06/07/2021 Hypothyroidism 05/31/2021 05/27/2022 [...] mRNA, LNP-s, No Pre serve, 2-Dose Series ([employer]) 01/02/2021,06/21/2020,05/24/2020 COVID-19, mRNA, LNP-s, PF, B ooster, [...] Telephone Encounter - Zeynep Miranda RN - 05/24/2024 3:20 PM EDT LMAM with call back number to speak with . It is unclear where she is currently. Will forward to Dr Bruce who is stucco mason for this provider. * Telephone Encounter - Zeynep Miranda RN - 05/24/2024 3:18 PM EDT ----- Message from Erica Tobar MD sent at 05/24/2024 2:42 PM EDT ----- ----- Message from Ryanne Harvey RN sent at 05/21/2024 6:26 PM EST ----- Good evening, pt's called in to report she was discharged from the hospital yesterday. Today she had dialysis and was sent back to the hospital again with CP and low heart rate, BP. is requesting that you call him please to discuss dialysis. She had no problems getting it while she was admitted last week. He is concerned about the outside facility as she's had health issues there while receiving dialysis. Thank you documented in this encounter Plan [...] Documents on File Type Date Recorded Patient Quitline Counselor Expl anation Power of [employer] 12/16/2018 10:33 AM Wesley Solitarioadrienne Lorin Schmitt Power of [employer] - Medical Low Pg 6 - signed [...] Age nt (per Health Care Power of [employer] document) Carmen Hughes Adult Child Health Care Agen t (per Health Care Power of [employer] document) Jeanne Schmitt Adult Child Health Care Agen t (per Health Care Power of [employer]yer document) Care Teams Farmworker General Relationship Specialty Start Date End Date Howie Gilbert MD [address] [place] [phone] PCP - General Family Medicine 11/14/23 documented as of this encounter
[2024-06-04 08:44] LABS: Hematocrit (blood only) 34.1 % (37.0-47.0); Hemoglobin 10.9 g/dl (12.0-16.0); Mean Corpuscular Hemoglobin 34.2 pg (25.0-34.0); Mean Corpuscular Volume 106.9 fL (80.0-100.0); Mean Platelet Volume 10.9 fL (9.4-12.4); Platelet Count 185 K/uL (130-400); RDW Standard Deviation 61.4 fL (36.4-46.3); Red Blood Count 3.19 M/uL (4.20-5.40)
[2024-06-04 08:52] LABS: White Blood Count 30.75 K/ul (4.8-10.8)
[2024-06-04 08:56] LABS: Albumin Globulin Ratio 1.1 (0.9-2); Albumin Level 3.4 gm/dl (3.4-5.0); BUN Creatinine Ratio 6.3 (10-20); Bilirubin,Total 0.4 mg/dl (0.2-1.0); Calcium 9.5 mg/dl (8.6-10.3); Creatinine Clr Calc Pharmacy 7.5 ml/min; Phosphorus 4.3 mg/dl (2.5-4.9); Potassium 3.2 mmol/L (3.5-5.1); Total Protein 6.4 gm/dl (6.0-8.3); Troponin I High Sensitivity 72.8 pg/ml (0-14)
--- NOTE | 2024-06-04 08:57 | XRay Report ---
EXAM: XR chest 1V portable CLINICAL HISTORY: Chest pain, nonspecific TECHNIQUE: X-ray chest was performed in 1 view: PA projection. COMPARISON: Prior chest angioCT dated 05/21/2024 and previous chest CR dated 06/04/2024 FINDINGS: Prominent bilateral hilar with increased bronchovascular markings and possible cephalization. Opacity in the cardiophrenic angle represents the epicardial fat pad. Blunting of the right costophrenic angles. Patchy haziness in the bilateral lung anand predominantly in the lower zones. The apparent widening of the mediastinum. Mild to moderate cardiomegaly. Degenerative changes in the thoracic cage. IMPRESSION: 1. The imaging findings are likely due to the pulmonary edema, however, the possibility of infection cannot be ruled out. 2. No interval changes are seen regarding the previous examinations. Electronically signed by Gulshan Bowie 06-04-2024 08:56 AM
[2024-06-04 09:04] LABS: Prothrombin Time 10.8 Seconds (9.0-12.0)
[2024-06-04] MEDS ORDERED: VANCOMYCIN CONSULT ACTIVE PRN ×2 (09:04→14:14)
[2024-06-04 09:10] LABS: Base Excess VBG 5.5 mEq/L; HCO3 VBG 32 mmol/L; Oxygen Saturation VBG 74.7 %; PCO2 VBG 51 mmHg (38-50); PO2 VBG 43 mmHg
[2024-06-04 09:22] LABS: Adenovirus PCR Not Detected (NotDetected); Bordetella parapertussis PCR Not Detected (NotDetected); Bordetella pertussis PCR Not Detected (NotDetected); Chlamydia pneumoniae PCR Not Detected (NotDetected); Coronavirus 229E PCR Not Detected (NotDetected); Coronavirus CoV-2 (COVID19)PCR Not Detected (NotDetected); Coronavirus HKU1 PCR Not Detected (NotDetected); Coronavirus NL63 PCR Not Detected (NotDetected); Coronavirus OC43PCR Not Detected (NotDetected); Human Metapneumovirus PCR Not Detected (NotDetected); Influenza A PCR Not Detected (NotDetected); Influenza B PCR Not Detected (NotDetected); Mycoplasma pneumoniae PCR Not Detected (NotDetected); Parainfluenza Virus 1 PCR Not Detected (NotDetected); Parainfluenza Virus 2 PCR Not Detected (NotDetected); Parainfluenza Virus 3 PCR Not Detected (NotDetected); Parainfluenza Virus 4 PCR Not Detected (NotDetected); Respiratory Syncytial VirusPCR Not Detected (NotDetected); Rhinovirus/Enterovirus PCR Not Detected (NotDetected)
[2024-06-04] MEDS: CEFEPIME 2000MG 2,000 MG/20 ML SYR IV STA (09:42)
[2024-06-04] MEDS: SODIUM CHLORIDE 0.9% 500 ML IV ONE ×2 (09:42→15:19)
--- NOTE | 2024-06-04 09:48 | CT Scan Report ---
CT OF THE HEAD WITHOUT CONTRAST CLINICAL HISTORY: Altered mental status. COMPARISON STUDY: Head CT May 21, 2024. TECHNIQUE: Helical axial images of the head were obtained without IV contrast. Automated exposure con trol was utilized for the study. A dose lowering technique was utilized adhering to the principles o f ALARA. FINDINGS: No acute intracranial hemorrhage, midline shift or mass effect is present. The ventricular system is stable. White matter hypodensities are unchanged and favor small vessel disease. Sulcal enl argement is due to atrophy. This is unchanged. The basal cisterns are patent. No extra-axial collecti ons are present. There are no findings to suggest acute dural sinus thrombosis or acute territorial i nfarct. There are no calvarial fractures. A small amount of fluid within the bilateral mastoid air ce lls is unchanged. Mucosal thickening within the right maxillary and less in the sinuses is unchanged. There are postoperative findings within the sinuses. IMPRESSION: No acute intracranial findings. No change in appearance of the brain. ACT 112: Negative or not required by law. Electronically signed by: Bryn Tanner M.D. 06/04/2024 9:45 AM
--- NOTE | 2024-06-04 09:53 | CT Scan Report ---
CT OF THE CHEST WITHOUT IV CONTRAST CLINICAL HISTORY: Altered mental status. Sepsis. End-stage renal disease. COMPARISON STUDY: Chest CT May 21, 2024. Chest radiograph performed earlier today. CT DOSE: 2996.11 mGy.cm TECHNIQUE: Axial images of the chest were obtained without IV contrast. Images were reviewed in the axial, sagittal, and coronal planes. IV contrast was not administered for this examination. Automat ed exposure control was utilized for the study. A dose lowering technique was utilized adhering to t he principles of ALARA. FINDINGS: No enlarged axillary, mediastinal or hilar lymph nodes are present. Moderate cardiomegaly and extensive coronary artery calcification are again noted. There is no pericardial effusion. No pne umothorax or pleural effusion is present. Multifocal groundglass opacities within the lungs are simil ar to CT of May 21, 2024. No confluent consolidation is present. Central airways are patent. Lungs a re suboptimally assessed due to respiratory motion. No discrete pulmonary nodules are identified. No acute fractures are identified. There is extensive anterior osteophytosis of the thoracic spine. IMPRESSION: 1. No change in multifocal groundglass opacities since CT of May 21, 2024. These are nonspecific and may represent an infectious process or pulmonary edema. 2. Moderate cardiomegaly and extensive coronary artery calcification. 3. No pneumothorax or pleural effusion. ACT 112: Negative or not required by law. Electronically signed by: Bryn Tanner M.D. 06/04/2024 9:51 AM
[2024-06-04 09:58] LABS: Basophils # (auto) 0.16 K/uL (0.00-0.20); Basophils % (auto) 0.5 %; Eosinophils # (auto) 0.19 K/uL (0.00-0.50); Eosinophils % (auto) 0.6 %; Immature Granulocytes # (auto) 0.86 K/uL (0.01-0.20); Immature Granulocytes % (auto) 2.8 %; Lymphocytes # (auto) 1.26 K/uL (1.20-3.40); Lymphocytes % (auto) 4.1 %; Monocytes # (auto) 2.21 K/uL (0.11-0.59); Monocytes % (auto) 7.2 %; Neutrophils # (auto) 26.07 K/uL (1.40-6.50); Neutrophils % (auto) 84.8 %; Polychromasia 1+; Stomatocytes 1+
--- NOTE | 2024-06-04 10:01 | CT Scan Report ---
ABDOMEN AND PELVIS CT WITHOUT CONTRAST CT DOSE: 2996 HISTORY: ams, sepsis, esrd TECHNIQUE: Multiaxial CT images of the abdomen and pelvis were performed without contrast. A dose lo wering technique was utilized adhering to the principles of ALARA. COMPARISON STUDY: 05/23/2022 FINDINGS: There are severe coronary artery calcifications. ABDOMEN: Liver, gallbladder, spleen, pancreas, and adrenal glands have an unremarkable non-IV contras sandrine appearance. Stable atrophy of the kidneys. There is no hydronephrosis bilaterally. There are a fe w small nonobstructing renal calculi. There are scattered atherosclerotic calcifications. No abdomina l aortic aneurysm. Pelvis: Uterus and adnexa are grossly unremarkable. Urinary bladder is empty. There is moderate retai herve stool. There is mild colonic diverticulosis. No acute diverticulitis. There is mild wall thickeni ng at the colon diffusely most prominent at the rectosigmoid. No other bowel inflammation or obstruct ion. No free fluid, free air, or abscess. No enlarged adenopathy. There is severe lumbar degenerative disc disease. There are severe degenerative changes at the hips. IMPRESSION: Mild colitis. No other acute findings. ACT 112: Negative or not required by law. The above report was generated using voice recognition software. It may contain grammatical, syntax o r spelling errors. Electronically signed by: Zurdo Sanchez M.D. 06/04/2024 9:59 AM
[2024-06-04] MEDS: VANCOMYCIN HCL 2,250 MG in SODIUM CHLORIDE 0.9% 500 ML IV ONE (10:04)
[2024-06-04 10:30] LABS: Thyroid Stimulating Hormone 3.834 uIu/ml (0.300-4.500)
--- NOTE | 2024-06-04 10:58 | History & Physical Report ---
Date of Service June 04, 2024 Assessment & Plan (1) Encephalopathy: (2) ESRD (end stage renal disease) on dialysis: (3) Chronic diastolic heart failure: (4) Rheumatoid arthritis: (5) Morbid obesity: (6) COPD (chronic obstructive pulmonary disease): Plan Lethargy Encephalopathy Pneumonitis Hx of pneumonia Acute hypoxic respiratory failure - Admit to PCU tele for now - Unknown source of infection - Initial troponins 71.9, and stable on recheck, likely due to chronic ESRD - ABG unremarkable,, Co2 1 - EKG no signs of acute ischemia or infarct - Echocardiogram recently done on 05/22 with EF 50-55%, septal motion consistent with conduction abnormality and mild LVH - CT head no acute process - CT angio without PE but noted multifocal groundglass infiltrates in both lungs typical of nonspecific pneumonitis - Respiratory biofire negative - Procal elevated at 5.8 and lactate is 2.7. BNP is 145 compared to [id number] on previous admission-- wonder if too dry and too much dialysis with fluid restriction is contributing? Will await nephro recommendations - WBC is now 30.75 compared to being around 10 last admission - Check legionella and strep Ag urine - Blood cx obtained - Started on cefepime IV here in the ER, previously Completed 5 days of cefepime and doxycycline previous admission-- will continue IV zosyn and vancomycin for hospital acquired infections at this time. - Consider pulmonary consultation if no improvement - Delirium precautions. Frequent reorientation, avoid sedating medications as able - Baseline dementia, Hearing deficit - aids are at bedside - Speech eval on 05/13 showed dysphagia and can tolerate and easy to chew diet ESRD - Nephro consultation , missed dialysis today due to lethargy as above - possible that she is a bit dry - K 3.2, Cr 7.29, BUN 46 Other chronic medical conditions: Parkinson disease Hypothyroidism Obstructive sleep apnea Orthostatic hypotension-continue midodrine DVT ppx: teds, scds Lines: PIV x 1, AVF right arm FEN/GI: Renal CODE: DNR/DNI--POLST reviewed from facility and says DNR/DNI. Dispo: From home, likely to remain in the hospital x 1-2 days I spent a total of 75 minutes with greater than 50% of that time face to face wi th the patient, personally reviewing all current laboratories, imaging studies, past medication reconciliation, outpatient chart review, and discussion with specialists to collaborate care for the patient excluding time spent in the performance of separately billed services or time spent by another provider/QHP. Please see attending documentation for corrections and/or additions. History of Present Illness Chief Complaint: Lethargy Primary Care Provider: Nae Rodriges PA-C This is a 78-year-old female with history of end-stage renal disease, Parkinson's, hypothyroidism, obstructive sleep apnea, orthostatic hypotension, who was has had multiple readmissions to this facility. She was most recently admitted to this facility from 05/21 to 05/27 and was treated for chest pain, volume overload, acute respiratory failure with hypoxia and ESRD. Palliative care was consulted during that time and patient agreed to DNR/DNI status but wanted to continue all care otherwise. She has completed a POLST. She was also seen for chest pain at that time and her initial troponin was 40 which down trended, today troponin is noted to be elevated at 71.9. She has previously been diagnosed with demand ischemia type II MD in the setting of ESRD. She had a recent echocardiogram with septal motion consistent with conduction abnormality and mild LVH. She also had a CT angio of the chest done on 05/21 multifocal groundglass infiltrates in both lungs typical of nonspecific pneumonitis, these groundglass opacities are still present on CT today and are unchanged. Today RVP is negative. She did completes 5 days of cefepime and doxycycline during her most recent hospital stay. CT of the head today shows no acute intracranial abnormality. ABG is only positive for CO2 level of 51. Tried to get her to dialysis this morning and noted increased lethargy with waking up and opening eyes but is not responding verbally, BP was slightly lower this morning reported at 75/35 and she did take midodrine along with other morning medications. She has WBC elevated to 31 K and left shift compared to last admission which is concerning for infection and possibly pneumonia. Wesley, pts is present at bedside and supports the history. He does not have much information to add about her symptoms as he did not talk to the patient yesterday, and she has been a resident of [facility] for the past 2 weeks. He wants us to do what ever we can for her. We discussed palliative care consultation from last admission and he reports that they filled out a POLST form and she does not want cardiac resuscitation, no life prolonging measures, or extraordinary measures. I have asked medical unit secretary to obtain this from nursing facility for confirmation. Kami wakes up to verbal stimuli and opens her eyes, but does not participate in discussion or follow any commands. Allergies Allergy/AdvReac Type Severity Reaction Status Date / Time No Known Allergies Allergy Verified 06/04/24 10:11 Home Medications Medication Instructions Recorded Confirmed Type aspirin 81 mg tablet,delayed 162 mg PO 3XWK 11/15/21 06/04/24 History release atorvastatin 80 mg tablet 80 mg PO QPM 11/15/21 06/04/24 History carbidopa 25 mg-levodopa 100 mg 1 tab PO TIDWMEAL 11/15/21 06/04/24 History tablet docusate sodium 100 mg capsule 100 mg PO DAILY 11/15/21 06/04/24 History (Colace) levothyroxine 125 mcg tablet 125 mcg PO QAM 11/15/21 06/04/24 History pregabalin 100 mg capsule 100 mg PO BID 11/15/21 06/04/24 History pantoprazole 20 mg tablet,delayed 20 mg PO BID 05/23/22 06/04/24 History release epinephrine 0.3 mg/0.3 mL 0.3 mg IM DIRECTED PRN 09/05/22 06/04/24 History injection, auto-injector (EpiPen) Anaphylaxis melatonin 10 mg tablet 10 mg PO HS 09/05/22 06/04/24 History ferric citrate 210 mg iron tablet 420 mg PO DIRECTED 01/21/23 06/04/24 History (Auryxia) fluticasone furoate 200 1 inh inhalation AMHS 01/21/23 06/04/24 History mcg-vilanterol 25 mcg/dose inhalation powder (Breo Ellipta) cholecalciferol (vitamin D3) 25 25 mcg PO DAILY 10/27/23 06/04/24 History mcg (1,000 unit) capsule vitamin B complex-vitamin C-folic 1 tab PO DAILY 10/27/23 06/04/24 History acid 0.8 mg tablet (Nanci-Samuel) acetaminophen 325 mg tablet 325 - 650 mg PO Q6 PRN MILD-SEVERE 05/06/24 06/04/24 History PAIN acetaminophen 500 mg tablet 500 mg PO QID Leg Pain 05/06/24 06/04/24 History diclofenac sodium 1 % topical gel 2 g topical QID 05/06/24 06/04/24 History escitalopram oxalate 10 mg tablet 10 mg PO QAM 05/06/24 06/04/24 History ferric citrate 210 mg iron tablet 210 mg PO DAILY PRN WITH SNACKS 05/06/24 06/04/24 History (Auryxia) ipratropium 0.5 mg-albuterol 3 mg 3 ml inhalation Q4 PRN Wheezing 05/06/24 06/04/24 History (2.5 mg base)/3 mL nebulization soln lidocaine-prilocaine 2.5 %-2.5 % 1 applic topical 3XWK 05/06/24 06/04/24 History topical cream midodrine 5 mg tablet 5 mg PO DIRECTED 05/06/24 06/04/24 History ondansetron HCl 4 mg tablet 4 mg PO Q6H PRN Nausea And Vomiting 05/06/2406/04 History bisacodyl 10 mg rectal suppository 10 mg CO DAILY PRN Constipation 06/04/24 06/04/24 History bisacodyl 5 mg tablet,delayed 5 mg PO DAILY PRN Constipation 06/04/24 06/04/24 History release menthol 0.44 %-zinc oxide 20.6 % 1 applic topical DAILY 06/04/24 06/04/24 History topical paste nystatin 100,000 unit/gram topical 1 applic topical HS 06/04/24 06/04/24 History powder Past Med/Surg History Problem List (Updated 05/24/24 @ 20:38 by TRINITY Burrows) Advance directive in chart Counseling regarding goals of care Palliative care by specialist Volume overload Chest pain Dysphagia Acute encephalopathy Influenza A Pneumonia Acute UTI (urinary tract infection) (Acute) Leukocytosis (Acute) Elevated procalcitonin (Acute) Endotracheally intubated (Acute) Elevated brain natriuretic peptide (BNP) level (Acute) Pulmonary vascular congestion (Acute) Influenza A (Acute) Elevated troponin (Acute) Acute confusion (Acute) Sepsis (Acute) Acute hypoxemic respiratory failure (Acute) Pulmonary edema (Acute) Acute respiratory failure with hypoxia RENÉ (obstructive sleep apnea) Diet-controlled type 2 diabetes mellitus Acute on chronic hypoxic respiratory failure (Acute) Chronic hypoxemic respiratory failure Noncompliance with renal dialysis Acute metabolic encephalopathy Hypotension (Acute) Confusion (Acute) Hypothyroidism Sinus bradycardia Hypotension Hemodialysis status (Acute) Anemia (Acute) LBBB (left bundle branch block) (Acute) DM type 2 (diabetes mellitus, type 2) Elevated troponin (Acute) Hypertension Toxic metabolic encephalopathy Dialysis disequilibrium syndrome (Acute) Acute on chronic respiratory failure with hypoxemia Leukocytosis LBBB (left bundle branch block) (Acute) ESRD (end stage renal disease) on dialysis (Acute) Anemia of chronic disease End-stage renal disease (ESRD) (Acute) Generalized weakness Parkinson disease Medical History ESRD on hemodialysis Thickened endometrium Acute ischemic stroke NSTEMI (non-ST elevated myocardial infarction) Elevated troponin I level AV fistula R arm Limb alert care status R arm History of recent hospitalization d/c 09/09/22>per medical record, pt sent to ER at [facility] following dialysis for reddened sores on her buttocks. Admitting dx was enterococcus UTI, decubitus ulcer and sacral cellulitis. Difficult intravenous access Black stools Mobility impaired pt non compliant with hx pt treatments / PT IS IN WHEELCHAIR/TOTAL ASSIST Poor short term memory AUGUSTINE (hard of hearing) COPD (chronic obstructive pulmonary disease) no medications for currently History of stroke 2019- pts spouse poor historian pt denies hx stroke History of anesthesia reaction "hard time waking up" Hx: recurrent pneumonia History of COVID-19 ? early 2021- mild congestion, no hospitalization, no current issues Non-ST elevation MD (NSTEMI) pt spouse not sure/ mild ? remembers something mentioned in hx/ ? details ESRD (end stage renal disease) on dialysis tues, thur & sat ([place]) Aspiration pneumonia HX Morbid obesity Rheumatoid arthritis ? current status/no meds for Chronic diastolic heart failure EF 50% on 01/2020 echo RACHEL (iron deficiency anemia) Subdural hematoma hx fall 2019 - tx to [facility]/no surgical intervention RENÉ on CPAP Depression Meniere's disease Generalized anxiety disorder Dyslipidemia Restless leg syndrome Diabetes mellitus, type II hx / NO MEDS HTN (hypertension) Surgical History Hx of arteriovenostomy for renal dialysis right arm History of tubal ligation History of carpal tunnel surgery B/L History of orthopedic surgery " bilat heel surgery" H/O sinus surgery Hx of total knee arthroplasty B/L Family History Other AAA (abdominal aortic aneurysm) Diabetes Family history non-contributory Hypertension Myotonic dystrophy Social History Smoking Status: Unknown if ever smoked Tobacco Type: Declines Cigarettes Per Day: 0.25ppd; Second Hand Exposure: No; Do You Dip or Chew Tobacco: No; Hx Alcohol Use: No Hx Substance Use: No Preferred Language: Czech Communication Ability: Effective Communication Ability Comment: intubated Computer Technology Instructor Required: No Beliefs That Will Affect Care: None marital status: Current Living Situation: Senior Care Current Living Situation Comment: [facility] Feels Safe at Home: Declines to Answer Assistive Devices: Wheelchair Review of Systems Review of Systems: Unobtainable due to cognitive status Physical Exam 2 Physical Exam: General: awakens to verbal stimuli, does not participate in discussion or follow commands, no apparent distress, somnolent, morbidly obese Head: Normocephalic, atraumatic ENT: PERRL, EOMI, no pharyngeal exudate, mucous membranes appear dry, mouth breathing Chest: Diminished breath sounds throughout, + belly breathing, on oximask, turned O2 down from 6 L to 2 L at bedside and maintains O2 sats at 99-100%. Cardiac: Regular rate and rhythm, no murmur, no JVD, normal peripheral pulses, good capillary refill Abdominal: NABS x 4 quadrants, soft, nondistended, nontender to palpation, no rebound or guarding Extremities: AVF right arm, Normal inspection, no peripheral edema or erythema, calfs nontender to palpation Psych: Normal mood and affect Neuro: Awakens to verbal stimuli, cannot assess strength Results & Data Results & Data Vital Signs (Past 12 Hours) Vital Signs Temp Pulse Pulse Resp BP BP Pulse Ox 06/04/24 10:01 69 16 105/69 93 06/04/24 08:58 72 37 H 98 06/04/24 08:20 77 06/04/24 07:42 71 24 93 06/04/24 07:24 37.4 C 71 24 101/45 L 93 06/04/24 07:24 93 06/04/24 07:24 37.4 C 71 24 101/45 L 93 O2 Del Method O2 Flow Rate 06/04/24 10:01 Nasal Cannula 3 06/04/24 08:58 Nasal Cannula 3 06/04/24 08:20 06/04/24 07:42 Nasal Cannula 2 06/04/24 07:24 Nasal Cannula 2 06/04/24 07:24 Nasal Cannula 2 06/04/24 07:24 Nasal Cannula 2 Laboratory Results 06/04/24 09:14 Aerobic Blood Culture - Pending Blood Anaerobic Blood Culture - Pending 06/04/24 09:09 Aerobic Blood Culture - Pending Blood Anaerobic Blood Culture - Pending 06/04/24 06/04/24 06/04/24 10:02 09:09 09:03 WBC RBC Hgb Hct MCV MCH MCHC RDW Std Deviation RDW Coeff of Bhavin Plt Count MPV Immature Gran % (Auto) Neut % (Auto) Lymph % (Auto) Jerauld % (Auto) Eos % (Auto) Baso % (Auto) Neut # (Auto) Lymph # (Auto) Jerauld # (Auto) Eos # (Auto) Baso # (Auto) Immature Gran # (Auto) Polychromasia Stomatocytes PT INR VBG pH 7.40 VBG pCO2 51 H VBG pO2 43 VBG HCO3 32 VBG O2 Saturation 74.7 VBG Base Excess 5.5 Barometric Pressure Sodium Potassium Chloride Carbon Dioxide Anion Gap BUN Creatinine Est Cr Clr Drug Dosing eGFR BUN/Creatinine Ratio Glucose Calcium Phosphorus Magnesium Total Bilirubin AST ALT Alkaline Phosphatase Troponin I High Sens 71.9 H* Total Protein Albumin Globulin Albumin/Globulin Ratio Lipase Procalcitonin 5.81 H TSH Adenovirus (PCR) B. pertussis DNA (PCR) B.parapertussis DNA PCR C. pneumoniae DNA (PCR) Coronavirus OC43 (PCR) Coronavirus HKU1 (PCR) Coronavirus 229E (PCR) SARS-CoV-2 (PCR) Coronavirus NL63 (PCR) Human Metapneumovir PCR Influenza Type A (PCR) Influenza Type B (PCR) M. pneumoniae (PCR) Parainfluenza 1 (PCR) Parainfluenza 2 (PCR) Parainfluenza 3 (PCR) Parainfluenza 4 (PCR) RSV (PCR) Entero/Rhino (PCR) 06/04/24 08:08 WBC 30.75 H* RBC 3.19 L Hgb 10.9 L Hct 34.1 L MCV 106.9 H MCH 34.2 H MCHC 32.0 RDW Std Deviation 61.4 H RDW Coeff of Bhavin 16.0 H Plt Count 185 MPV 10.9 Immature Gran % (Auto) 2.8 Neut % (Auto) 84.8 Lymph % (Auto) 4.1 Jerauld % (Auto) 7.2 Eos % (Auto) 0.6 Baso % (Auto) 0.5 Neut # (Auto) 26.07 H Lymph # (Auto) 1.26 Jerauld # (Auto) 2.21 H Eos # (Auto) 0.19 Baso # (Auto) 0.16 Immature Gran # (Auto) 0.86 H Polychromasia 1+ Stomatocytes 1+ PT 10.8 INR 1.0 VBG pH Cancelled VBG pCO2 Cancelled VBG pO2 Cancelled VBG HCO3 Cancelled VBG O2 Saturation Cancelled VBG Base Excess Cancelled Barometric Pressure Cancelled Sodium 139 Potassium 3.2 L Chloride 93 L Carbon Dioxide 30 Anion Gap 16 H BUN 46 H Creatinine 7.29 H* Est Cr Clr Drug Dosing 7.5 eGFR 5.35 BUN/Creatinine Ratio 6.3 L Glucose 127 H Calcium 9.5 Phosphorus 4.3 Magnesium 2.0 Total Bilirubin 0.4 AST 20 ALT 9 Alkaline Phosphatase 79 Troponin I High Sens 72.8 H* Total Protein 6.4 Albumin 3.4 Globulin 3.0 Albumin/Globulin Ratio 1.1 Lipase 11 Procalcitonin TSH 3.834 Adenovirus (PCR) Not Detected B. pertussis DNA (PCR) Not Detected B.parapertussis DNA PCR Not Detected C. pneumoniae DNA (PCR) Not Detected Coronavirus OC43 (PCR) Not Detected Coronavirus HKU1 (PCR) Not Detected Coronavirus 229E (PCR) Not Detected SARS-CoV-2 (PCR) Not Detected Coronavirus NL63 (PCR) Not Detected Human Metapneumovir PCR Not Detected Influenza Type A (PCR) Not Detected Influenza Type B (PCR) Not Detected M. pneumoniae (PCR) Not Detected Parainfluenza 1 (PCR) Not Detected Parainfluenza 2 (PCR) Not Detected Parainfluenza 3 (PCR) Not Detected Parainfluenza 4 (PCR) Not Detected RSV (PCR) Not Detected Entero/Rhino (PCR) Not Detected Diagnostic Findings Chest X-Ray 06/04/24 07:33 EXAM: XR chest 1V portable CLINICAL HISTORY: Chest pain, nonspecific TECHNIQUE: X-ray chest was performed in 1 view: PA projection. COMPARISON: Prior chest angioCT dated 05/21/2024 and previous chest CR dated 06/04/2024 FINDINGS: Prominent bilateral hilar with increased bronchovascular markings and possible cephalization. Opacity in the cardiophrenic angle represents the epicardial fat pad. Blunting of the right costophrenic angles. Patchy haziness in the bilateral lung anand predominantly in the lower zones. The apparent widening of the mediastinum. Mild to moderate cardiomegaly. Degenerative changes in the thoracic cage. IMPRESSION: 1. The imaging findings are likely due to the pulmonary edema, however, the possibility of infection cannot be ruled out. 2. No interval changes are seen regarding the previous examinations. Electronically signed by Gulshan Bowie 06-04-2024 08:56 AM Abdomen/Pelvis CT 06/04/24 09:[address] WITHOUT CONTRAST CT DOSE: 2996 HISTORY: ams, sepsis, esrd TECHNIQUE: Multiaxial CT images of the abdomen and pelvis were performed without contrast. A dose lowering technique was utilized adhering to the principles of ALARA. COMPARISON STUDY: 05/23/2022 FINDINGS: There are severe coronary artery calcifications. ABDOMEN: Liver, gallbladder, spleen, pancreas, and adrenal glands have an unremarkable non-IV contrasted appearance. Stable atrophy of the kidneys. There is no hydronephrosis bilaterally. There are a few small nonobstructing renal calculi. There are scattered atherosclerotic calcifications. No abdominal aortic aneurysm. Pelvis: Uterus and adnexa are grossly unremarkable. Urinary bladder is empty. There is moderate retained stool. There is mild colonic diverticulosis. No acute diverticulitis. There is mild wall thickening at the colon diffusely most prominent at the rectosigmoid. No other bowel inflammation or obstruction. No free fluid, free air, or abscess. No enlarged adenopathy. There is severe lumbar degenerative disc disease. There are severe degenerative changes at the hips. IMPRESSION: Mild colitis. No other acute findings. ACT 112: Negative or not required by law. The above report was generated using voice recognition software. It may contain grammatical, syntax or spelling errors. Electronically signed by: Zurdo Sanchez M.D. 06/04/2024 9:[address] 06/04/24 09:03 CT OF THE CHEST WITHOUT IV CONTRAST CLINICAL HISTORY: Altered mental status. Sepsis. End-stage renal disease. COMPARISON STUDY: Chest CT May 21, 2024. Chest radiograph performed earlier today. CT DOSE: 2996.11 mGy.cm TECHNIQUE: Axial images of the chest were obtained without IV contrast. Images were reviewed in the axial, sagittal, and coronal planes. IV contrast was not administered for this examination. Automated exposure control was utilized for the study. A dose lowering technique was utilized adhering to the principles of ALARA. FINDINGS: No enlarged axillary, mediastinal or hilar lymph nodes are present. Moderate cardiomegaly and extensive coronary artery calcification are again noted. There is no pericardial effusion. No pneumothorax or pleural effusion is present. Multifocal groundglass opacities within the lungs are similar to CT of May 21, 2024. No confluent consolidation is present. Central airways are patent. Lungs are suboptimally assessed due to respiratory motion. No discrete pulmonary nodules are identified. No acute fractures are identified. There is extensive anterior osteophytosis of the thoracic spine. IMPRESSION: 1. No change in multifocal groundglass opacities since CT of May 21, 2024. These are nonspecific and may represent an infectious process or pulmonary edema. 2. Moderate cardiomegaly and extensive coronary artery calcification. 3. No pneumothorax or pleural effusion. ACT 112: Negative or not required by law. Electronically signed by: Bryn Tanner M.D. 06/04/2024 9:[address] 06/04/24 09:03 CT OF THE HEAD WITHOUT CONTRAST CLINICAL HISTORY: Altered mental status. COMPARISON STUDY: Head CT May 21, 2024. TECHNIQUE: Helical axial images of the head were obtained without IV contrast. Automated exposure control was utilized for the study. A dose lowering technique was utilized adhering to the principles of ALARA. FINDINGS: No acute intracranial hemorrhage, midline shift or mass effect is present. The ventricular system is stable. White matter hypodensities are unchanged and favor small vessel disease. Sulcal enlargement is due to atrophy. This is unchanged. The basal cisterns are patent. No extra-axial collections are present. There are no findings to suggest acute dural sinus thrombosis or acute territorial infarct. There are no calvarial fractures. A small amount of fluid within the bilateral mastoid air cells is unchanged. Mucosal thickening within the right maxillary and less in the sinuses is unchanged. There are postoperative findings within the sinuses. IMPRESSION: No acute intracranial findings. No change in appearance of the brain. ACT 112: Negative or not required by law. Electronically signed by: Bryn Tanner M.D. 06/04/2024 9:45 AM Code Status & VTE Plan Code Status Conditional CODE - ok with intubation x 2 days. Supervising Physician Co-Signing Physician Notes I have seen and discussed the case with the collaborating advanced practitioner. I agree with the above H&P. I have reviewed and confirmed the patients medical history, the findings on physical examination, and the patients diagnosis and treatment plan with [place] MISHRA and agree with the information documented. In short, Ms. Hassan is a 78 yo woman with multiple comorbidities who is admitted for evaluation of AMS. History unclear but reported altered over last 24 hours. Patient unable to participate in exam. On oxymask 2L and sleeping comfortably. Labs with leukocytosis to 30. VBG with CO2 at 51, consistent with prior. BUN at 46. Lactate at 2.7 to 2.3. BNP 145, down from 1145 previously. #Acute metabolic encephalopathy #Acute on chronic hypotension, c/f dehydration #Leukocytosis #Sepsis unclear etiology, possible aspiration -CT scans with ongoing pneumonitis v edema reported, doing fairly well from an oxygenation standpoint, with 2 L on oxymask Would question if pneumonia at this time given the chronicity of findings, but high risk for HAP given readmissions therefore will continue empiric coverage iso leukocytosis -Question of dehydration given hypotension, AMS, and lactate--weight from 99kg to 94 kg just in may, weights even downtrending in last 6 months; BNP notably lower than prior s/p 500cc with some modest improvement in lactate, will trail additional fluid challenge -Noted stool burden as well/constipation, potentially contributing to WBC/also lending itself to supporting dehydration at this time Will trial suppository, and work on bowel regimen when able to take po Follow infectious work up Palliative care consult,polst reviewed Can consider pulmonology--however, do not suspect much management to change and given minimal hypoxia and known oropharyngeal dysphagia, will continue current management #ESRD nephrology consulted rest of plan as above I spent a total of 15 minutes coordinating, documenting, and providing care for this patient excluding time spent in the performance of separately billed services. All of the aforementioned completed outside of collaborating with the assigned advanced practitioner for a full treatment plan. I have reviewed the advanced practitioner's documentation, and I agree with, and take responsibility for the plan of care (4) Rheumatoid arthritis Rheumatoid arthritis location: unspecified site Rheumatoid factor presence: unspecified presence Qualified Code(s): M06.9 - Rheumatoid arthritis, unspecified
[2024-06-04] MEDS ORDERED: ALBUT/IPRATROP 3MG/0.5MG NEB 3 ML VIAL INH PRN (13:23)
[2024-06-04] MEDS ORDERED: NON-FORMULARY MEDICATION (Ferric Citrate [Auryxia] 210 mg iron tablet) PO PRN (13:23)
[2024-06-04] MEDS: PIPERACILLIN/TAZOBACTAM 4.5 GM/100 ML BAG IV ONE (13:25)
[2024-06-04] MEDS ORDERED: MIDODRINE HCL 2.5 MG TAB PO SCH (13:30)
[2024-06-04] MEDS ORDERED: ONDANSETRON INJ 2 MG/ML 2 ML VIAL IV PRN (14:14)
--- NOTE | 2024-06-04 14:28 | Pharmacy Report ---
Pharmacy PK ABX Note - Date of Service June 04, 2024 - Assessment and Plan Assessment 78 year old F receiving zosyn/vancomycin for empiric treatment of sepsis- unknown source at this time. Pertinent microbiologic data includes: Blood cultures pending. MRSA nasal swab 05/22/[address] without changes of groundglass opacities from May 21. WBC 30, afebrile at this time, soft pressures. Patient has ESRD with dialysis MWF. Vancomycin will be dosed by levels. Current plan appears to be to hold dialysis today and complete tomorrow. Random level ordered with AM labs for predialysis level to assist with dosing. Consider post-dialysis level if plan changes and patient received dialysis today. Plan Vancomycin * Loading dose: 2250mg IV x 1 * Maintenance dose: DOSE BY LEVELS * Random level 06/05 AM Pharmacy will continue to follow and will adjust dose/frequency as necessary. Thank you. Pharmacy has transitioned to AUC monitoring for vancomycin. AUC/MOOK is the preferred PK/PD target and is associated with decreased risk of nephrotoxicity compared to traditional trough targets.
[2024-06-04] MEDS: CARBIDOPA/LEVODOPA 25/100MG TAB PO SCH (17:40)
[2024-06-04] MEDS: bisacodyL 10 MG SUPP PR STA (17:40)
[2024-06-04] MEDS: MIDODRINE HCL 2.5 MG TAB PO SCH (17:40)
[2024-06-04] MEDS: MUPIROCIN 2% OINT 22 GM TUBE EXT SCH (19:39)
--- NOTE | 2024-06-04 20:31 | Electrocardiogram Report ---
Test Reason : Blood Pressure : */* mmHG Vent. Rate : 70 BPM Atrial Rate : 70 BPM P-R Int : 188 ms QRS Dur : 168 ms QT Int : 472 ms P-R-T Axes : 40 0 133 degrees QTcB Int : 509 ms Sinus rhythm with frequent Premature ventricular complexes Left bundle branch block Abnormal ECG When compared with ECG of 21-May-2024 11:19, No significant change was found Confirmed by Jhony Raymond ([id number]) on 06/04/2024 8:31:27 PM Referred By: Confirmed By: Jhony Raymond
[2024-06-05] MEDS: MELATONIN 3 MG TAB PO SCH (00:11)
[2024-06-05] MEDS: FLUTICASONE/VILANTEROL 200/25MCG 14 PUFFS/INHALER INH SCH (00:11)
[2024-06-05] MEDS: ATORVASTATIN 40 MG TAB PO SCH (00:11)
[2024-06-05] MEDS: PREGABALIN 100 MG CAP PO SCH (00:12)
[2024-06-05] MEDS: PANTOprazole 40 MG TAB PO SCH (00:12)
[2024-06-05] MEDS: PIPERACILLIN/TAZOBACTAM 4.5 GM/100 ML BAG IV SCH (00:29)
[2024-06-05] MEDS: NYSTATIN POWDER 15GM BTL EXT SCH (00:29)
--- NOTE | 2024-06-05 03:39 | Communication Note ---
Date of Service: June 05, 2024 Notified by RN of positive FOBT. Patient noted to have black stool upon arrival on the floor as per RN. Patient without unusual abdominal pain complaints. AP UGIB Hold aspirin for now IV PPI N.p.o. Defer decision regarding GI evaluation to AM provider. (Palliative care consultation contemplated to discuss goals of care as per admitting team.)
[2024-06-05] MEDS: PANTOprazole 80 MG in DEXTROSE 5% 100 ML IV STA (03:57)
[2024-06-05] MEDS: ALBUMIN 25% 25 GM/100 ML VIAL IV ONE (04:19)
[2024-06-05 04:42] LABS: Basophils # (auto) 0.13 K/uL (0.00-0.20); Basophils % (auto) 0.6 %; Eosinophils # (auto) 0.58 K/uL (0.00-0.50); Eosinophils % (auto) 2.6 %; Hematocrit (blood only) 29.1 % (37.0-47.0); Hemoglobin 9.5 g/dl (12.0-16.0); Immature Granulocytes # (auto) 0.32 K/uL (0.01-0.20); Immature Granulocytes % (auto) 1.4 %; Lymphocytes # (auto) 0.81 K/uL (1.20-3.40); Lymphocytes % (auto) 3.7 %; Mean Corpuscular Hemoglobin 34.7 pg (25.0-34.0); Mean Corpuscular Hgb Conc 32.6 g/dL (32.0-36.0); Mean Corpuscular Volume 106.2 fL (80.0-100.0); Mean Platelet Volume 10.8 fL (9.4-12.4); Monocytes # (auto) 1.11 K/uL (0.11-0.59); Neutrophils # (auto) 19.22 K/uL (1.40-6.50); Neutrophils % (auto) 86.7 %; Platelet Count 164 K/uL (130-400); RDW Coefficient of Variation 15.6 % (11.5-14.5); RDW Standard Deviation 59.5 fL (36.4-46.3); Red Blood Count 2.74 M/uL (4.20-5.40); White Blood Count 22.17 K/ul (4.8-10.8)
[2024-06-05 04:59] LABS: BUN Creatinine Ratio 6.8 (10-20); Calcium 8.9 mg/dl (8.6-10.3); Creatinine Clr Calc Pharmacy 6.4 ml/min; Potassium 3.1 mmol/L (3.5-5.1)
[2024-06-05] MEDS: LEVOTHYROXINE SODIUM 125 MCG TABLET PO SCH (05:28)
[2024-06-05] MEDS ORDERED: SODIUM CHLORIDE 0.9% 1,000 ML IV PRN (07:00)
[2024-06-05] MEDS ORDERED: VANCOMYCIN HCL 1,500 MG in SODIUM CHLORIDE 0.9% 500 ML IV SCH (09:00)
[2024-06-05] MEDS: POTASSIUM CHLORIDE CRTAB 20 MEQ TABCR PO STA (10:04)
[2024-06-05] MEDS: NEPHROCAPS PO SCH (10:06)
[2024-06-05] MEDS: CHOLECALCIFEROL 25 MCG (1000 UNITS) TAB PO SCH (10:07)
[2024-06-05] MEDS: ESCITALOPRAM OXALATE 10 MG TAB PO SCH (10:08)
[2024-06-05] MEDS: DOCUSATE SODIUM 100 MG CAP PO SCH (10:08)
[2024-06-05] MEDS: bisacodyL 5 MG TABEC PO SCH (10:18)
--- NOTE | 2024-06-05 11:38 | Nephrology Consultation ---
Date of Consultation June 05, 2024 Assessment & Plan (1) ESRD (end stage renal disease) on dialysis: Dialysis was not possible today because of Obtundation and very low BP. Also she refused. Has been same during previous admissions--very low BP making us shorten and sstop dialysis frequently. No dialysis today. NO e/o vol overload. In fact she appear vol depleted and Low K will give some kcl.. wanted to discuss about continuing dialysis. However no hearing aid so could not ask her questions. not at bedside. I tried to call him by phone and left message. Usually convinces her to do dialysis and she has frequently refused doing dialysis before. Palliative med to be involved. I will like to talk with and tell him that continuing dialysis at this stage is not good for patient's interest. She is rpaidly declining and frequently refuses dialysis anyway. or we shorten and Stop because of Low BP and other issues. NO dialysis today and tomorrow. If we decide to continue Dialysis then next HD will be friday. (2) Acute encephalopathy: LIkely related with Sepsis. High WBC but coming down and Somewhat better. (3) Sepsis: Plan time spent 62 mins in discussion with Primary team, Family and care team. History of Present Illness Reason for Consultation: ESRD on Dialysis Attending Physician: Maranda Benton MD History of Present Illness 78-year-old female with end-stage renal disease, Parkinson's, hypothyroidism, obstructive sleep apnea, orthostatic hypotension, who was has had multiple readmissions to this facility. She was most recently admitted to this facility from 05/21 to 05/27 and was treated for chest pain, volume overload, acute respiratory failure with hypoxia and ESRD. Palliative care was consulted during that time and patient agreed to DNR/DNI status but wanted to continue all care otherwise. She did completes 5 days of cefepime and doxycycline during her most recent hospital stay. CT of the head today shows no acute intracranial abnormality. ABG is only positive for CO2 level of 51. her EBC was high at 30K + with elevated lactate. her BP was low. She was very lethargic/Obtunded and Hypotensive and refused dialysis. Also not in condition to do dialysis. She has been a resident of [facility] for the past 2 weeks. ROS--Slightly more alert. However no hearing aid so could not ask her questions. not at bedside. I tried to call him by phone and left message. Physical Exam Physical Exam: General: awakens to verbal stimuli, no apparent distress, somnolent, morbidly obese Chest: Diminished breath sounds throughout, + belly breathing, on oximask, turned O2 down from 6 L to 2 L at bedside and maintains O2 sats at 99-100%. Cardiac: Regular rate and rhythm, no murmur, no JVD, normal peripheral pulses, good capillary refill Abdominal: NABS x 4 quadrants, soft, nondistended, nontender to palpation, no rebound or guarding Extremities: AVF right arm, Normal inspection, no peripheral edema or erythema, calfs nontender to palpation Psych: Normal mood and affect Neuro: Awakens to verbal stimuli, cannot assess strength Allergies Allergy/AdvReac Type Severity Reaction Status Date / Time No Known Allergies Allergy Verified 06/04/24 10:11 Home Medications Medication Instructions Recorded Confirmed Type aspirin 81 mg tablet,delayed 162 mg PO 3XWK 11/15/21 06/04/24 History release atorvastatin 80 mg tablet 80 mg PO QPM 11/15/21 06/04/24 History carbidopa 25 mg-levodopa 100 mg 1 tab PO TIDWMEAL 11/15/21 06/04/24 History tablet docusate sodium 100 mg capsule 100 mg PO DAILY 11/15/21 06/04/24 History (Colace) levothyroxine 125 mcg tablet 125 mcg PO QAM 11/15/21 06/04/24 History pregabalin 100 mg capsule 100 mg PO BID 11/15/21 06/04/24 History pantoprazole 20 mg tablet,delayed 20 mg PO BID 05/23/22 06/04/24 History release epinephrine 0.3 mg/0.3 mL 0.3 mg IM DIRECTED PRN 09/05/22 06/04/24 History injection, auto-injector (EpiPen) Anaphylaxis melatonin 10 mg tablet 10 mg PO HS 09/05/22 06/04/24 History ferric citrate 210 mg iron tablet 420 mg PO DIRECTED 01/21/23 06/04/24 History (Auryxia) fluticasone furoate 200 1 inh inhalation [facility] 01/21/23 06/04/24 History mcg-vilanterol 25 mcg/dose inhalation powder (Breo Ellipta) cholecalciferol (vitamin D3) 25 25 mcg PO DAILY 10/27/23 06/04/24 History mcg (1,000 unit) capsule vitamin B complex-vitamin C-folic 1 tab PO DAILY 10/27/23 06/04/24 History acid 0.8 mg tablet (Nanci-Samuel) acetaminophen 325 mg tablet 325 - 650 mg PO Q6 PRN MILD-SEVERE 05/06/24 06/04/24 History PAIN acetaminophen 500 mg tablet 500 mg PO QID Leg Pain 05/06/24 06/04/24 History diclofenac sodium 1 % topical gel 2 g topical QID 05/06/24 06/04/24 History escitalopram oxalate 10 mg tablet 10 mg PO QAM 05/06/24 06/04/24 History ferric citrate 210 mg iron tablet 210 mg PO DAILY PRN WITH SNACKS 05/06/24 06/04/24 History (Auryxia) ipratropium 0.5 mg-albuterol 3 mg 3 ml inhalation Q4 PRN Wheezing 05/06/24 06/04/24 History (2.5 mg base)/3 mL nebulization soln lidocaine-prilocaine 2.5 %-2.5 % 1 applic topical 3XWK 05/06/24 06/04/24 History topical cream midodrine 5 mg tablet 5 mg PO DIRECTED 05/06/24 06/04/24 History ondansetron HCl 4 mg tablet 4 mg PO Q6H PRN Nausea And Vomiting 05/06/24 06/04/24 History bisacodyl 10 mg rectal suppository 10 mg ID DAILY PRN Constipation 06/04/24 06/04/24 History bisacodyl 5 mg tablet,delayed 5 mg PO DAILY PRN Constipation 06/04/24 06/04/24 History release menthol 0.44 %-zinc oxide 20.6 % 1 applic topical DAILY 06/04/24 06/04/24 History topical paste nystatin 100,000 unit/gram topical 1 applic topical HS 06/04/24 06/04/24 History powder Patient History Medical History ESRD on hemodialysis Thickened endometrium Acute ischemic stroke NSTEMI (non-ST elevated myocardial infarction) Elevated troponin I level AV fistula R arm Limb alert care status R arm History of recent hospitalization d/c 09/09/22>per medical record, pt sent to ER at [facility] following dialysis for reddened sores on her buttocks. Admitting dx was enterococcus UTI, decubitus ulcer and sacral cellulitis. Difficult intravenous access Black stools Mobility impaired pt non compliant with hx pt treatments / PT IS IN WHEELCHAIR/TOTAL ASSIST Poor short term memory [place] (hard of hearing) COPD (chronic obstructive pulmonary disease) no medications for currently History of stroke 2019- pts spouse poor historian pt denies hx stroke History of anesthesia reaction "hard time waking up" Hx: recurrent pneumonia History of COVID-19 ? early 2021- mild congestion, no hospitalization, no current issues Non-ST elevation DC (NSTEMI) pt spouse not sure/ mild ? remembers something mentioned in hx/ ? details ESRD (end stage renal disease) on dialysis tues, thur & sat [facility]) Aspiration pneumonia HX Morbid obesity Rheumatoid arthritis ? current status/no meds for Chronic diastolic heart failure EF 50% on 01/2020 echo RACHEL (iron deficiency anemia) Subdural hematoma hx fall 2019 - tx to [facility]/no surgical intervention RENÉ on CPAP Depression Meniere's disease Generalized anxiety disorder Dyslipidemia Restless leg syndrome Diabetes mellitus, type II hx / NO MEDS HTN (hypertension) Surgical History Hx of arteriovenostomy for renal dialysis right arm History of tubal ligation History of carpal tunnel surgery B/L History of orthopedic surgery " bilat heel surgery" H/O sinus surgery Hx of total knee arthroplasty B/L Family History Other AAA (abdominal aortic aneurysm) Diabetes Family history non-contributory Hypertension Myotonic dystrophy Social History Smoking Status: Unknown if ever smoked Second Hand Exposure: No; Preferred Language: Trinidadian Communication Ability: Impaired Tourist Adviser Required: No Beliefs That Will Affect Care: None marital status: Current Living Situation: [facility] Current Living Situation Comment: [facility] Assistive Devices: Hospital Bed and Mechanical Lift Results & Data Vital Signs (Past 12 Hours) Vital Signs Temp Pulse Pulse Resp BP Pulse Ox O2 Del Method 06/05/24 11:06 36.5 C 61 16 101/64 96 Nasal Cannula 06/05/24 08:45 36.6 C 58 L 18 82/39 L 97 BiPAP 06/05/24 08:45 36.6 C 58 L 06/05/24 08:42 36.6 C 58 L 16 96/59 L 97 BiPAP 06/05/24 08:26 BiPAP 06/05/24 08:15 60 06/05/24 06:00 58 L 98/61 L 96 BiPAP 06/05/24 04:26 63 22 95 06/05/24 03:07 37.0 C 62 20 90/58 L 96 BiPAP 06/04/24 23:47 36.7 C 64 22 101/64 96 BiPAP O2 Flow Rate 06/05/24 11:06 2 06/05/24 08:45 2 06/05/24 08:45 06/05/24 08:42 06/05/24 08:26 06/05/24 08:15 06/05/24 06:00 2 06/05/24 04:26 2 06/05/24 03:07 06/04/24 23:47 Laboratory Results Reviewed CBC and renal Panel
--- NOTE | 2024-06-05 13:32 | Pharmacy Report ---
Pharmacy PK ABX Note - Date of Service June 05, 2024 - Assessment and Plan Assessment 06/05 * Patient unable to undergo dialysis today/refused. Random level this AM 25. Will not redose at this time as patient is not undergoing dialysis. Palliative consulted. Next dialysis if continuing will be Friday per current plan. Will obtain level on Friday AM. 06/04 78 year old F receiving zosyn/vancomycin for empiric treatment of sepsis- unknown source at this time. Pertinent microbiologic data includes: Blood cultures pending. MRSA nasal swab 05/22/[address] without changes of groundglass opacities from May 21. WBC 30, afebrile at this time, soft pressures. Patient has ESRD with dialysis MWF. Vancomycin will be dosed by levels. Current plan appears to be to hold dialysis today and complete tomorrow. Random level ordered with AM labs for predialysis level to assist with dosing. Consider post-dialysis level if plan changes and patient received dialysis today. Plan Vancomycin * Loading dose: 2250mg IV x 1 * Maintenance dose: Random level this AM 25 mcg/mL; will not reduce as patient is not undergoing dialysis as previously planned * Random level 06/07 AM Pharmacy will continue to follow and will adjust dose/frequency as necessary. Piter jacob. Pharmacy has transitioned to AUC monitoring for vancomycin. AUC/MOOK is the preferred PK/PD target and is associated with decreased risk of nephrotoxicity compared to traditional trough targets.
--- NOTE | 2024-06-05 13:46 | Hospitalist Progress Note ---
Date of Service June 05, 2024 Assessment & Plan (1) Encephalopathy: (2) ESRD (end stage renal disease) on dialysis: (3) Chronic diastolic heart failure: (4) Rheumatoid arthritis: (5) Morbid obesity: (6) COPD (chronic obstructive pulmonary disease): Plan Acute metabolic encephalopathy Acute on chronic hypotension Leukocytosis Sepsis CT scans with ongoing pneumonitis v edema reported, doing fairly well from an oxygenation standpoint, with [address] abd/pelvis noting possible colitis,increased stool burden as well/constipation trial suppository, and work on bowel regimen when able to take po Blood Cx pending Continue IV Zosyn with noted improvement in leukocytosis Follow infectious work up Palliative care consulted, appreciate further recs, polst reviewed ESRD nephrology consulted Possible GI Bleed FOBT positive IV PPI GI consulted, appreciate recs Monitor H/H Other chronic medical conditions: Parkinson disease Hypothyroidism Obstructive sleep apnea Orthostatic hypotension-continue midodrine DVT ppx: teds, scds Lines: PIV x 1, AVF right arm FEN/GI: Renal CODE: DNR/DNI--POLST reviewed from facility and says DNR/DNI. Dispo: PT/OT for further recs Admission and Anticipated Discharge Date Admission Date: June 04, 2024 Subjective Pt ALEKNAGIK Was seen with OT at bedside Review of Systems Review of Systems: All systems reviewed & are unremarkable except as noted in Subjective Physical Exam Physical Exam: General: Alert, oriented. No acute distress HEENT: NC/AT CV: RRR Resp: no increased effort of breathing Abdomen: Soft, tender Extremities: No edema in lower extremities bilaterally. Results & Data Results & Data Vital Signs (Past 12 Hours) Vital Signs Temp Pulse Pulse Resp BP Pulse Ox O2 Del Method 06/05/24 11:06 36.5 C 61 16 101/64 96 Nasal Cannula 06/05/24 08:45 36.6 C 58 L 18 82/39 L 97 BiPAP 06/05/24 08:45 36.6 C 58 L 06/05/24 08:42 36.6 C 58 L 16 96/59 L 97 BiPAP 06/05/24 08:26 BiPAP 06/05/24 08:15 60 06/05/24 06:00 58 L 98/61 L 96 BiPAP 06/05/24 04:26 63 22 95 06/05/24 03:07 37.0 C 62 20 90/58 L 96 BiPAP O2 Flow Rate 06/05/24 11:06 2 06/05/24 08:45 2 06/05/24 08:45 06/05/24 08:42 06/05/24 08:26 06/05/24 08:15 06/05/24 06:00 2 06/05/24 04:26 2 06/05/24 03:07 (4) Rheumatoid arthritis Rheumatoid arthritis location: unspecified site Rheumatoid factor presence: unspecified presence Qualified Code(s): M06.9 - Rheumatoid arthritis, unspecified
[2024-06-05] MEDS: EPOETIN ALFA 10,000 UNITS/ML VIAL IV SCH (14:43)
[2024-06-05] MEDS: PANTOprazole 40 MG/10 ML SYR IV SCH (21:08)
[2024-06-06 05:55] LABS: Basophils # (auto) 0.11 K/uL (0.00-0.20); Basophils % (auto) 0.6 %; Eosinophils # (auto) 0.68 K/uL (0.00-0.50); Eosinophils % (auto) 3.8 %; Hematocrit (blood only) 28.9 % (37.0-47.0); Hemoglobin 9.4 g/dl (12.0-16.0); Immature Granulocytes # (auto) 0.45 K/uL (0.01-0.20); Immature Granulocytes % (auto) 2.5 %; Lymphocytes # (auto) 0.69 K/uL (1.20-3.40); Lymphocytes % (auto) 3.8 %; Mean Corpuscular Hemoglobin 34.3 pg (25.0-34.0); Mean Corpuscular Hgb Conc 32.5 g/dL (32.0-36.0); Mean Corpuscular Volume 105.5 fL (80.0-100.0); Mean Platelet Volume 10.8 fL (9.4-12.4); Monocytes # (auto) 1.11 K/uL (0.11-0.59); Monocytes % (auto) 6.2 %; Neutrophils # (auto) 14.97 K/uL (1.40-6.50); Neutrophils % (auto) 83.1 %; Platelet Count 163 K/uL (130-400); RDW Coefficient of Variation 15.5 % (11.5-14.5); RDW Standard Deviation 58.2 fL (36.4-46.3); Red Blood Count 2.74 M/uL (4.20-5.40); White Blood Count 18.01 K/ul (4.8-10.8)
[2024-06-06 06:33] LABS: Albumin Globulin Ratio 1.2 (0.9-2); Albumin Level 3.2 gm/dl (3.4-5.0); BUN Creatinine Ratio 6.9 (10-20); Bilirubin,Total 0.4 mg/dl (0.2-1.0); Calcium 8.8 mg/dl (8.6-10.3); Creatinine Clr Calc Pharmacy 5.6 ml/min; Globulin 2.6 gm/dl (2.5-4.0); Magnesium 1.9 mg/dl (1.7-2.4); Phosphorus 5.9 mg/dl (2.5-4.9); Potassium 3.6 mmol/L (3.5-5.1); Total Protein 5.8 gm/dl (6.0-8.3)
[2024-06-06] MEDS: POLYETHYLENE (MIRALAX) 17 GM PACK PO SCH (09:20)
--- NOTE | 2024-06-06 10:07 | Gastrointestinal Consultation ---
Date of Consultation June 06, 2024 Assessment & Plan (1) Occult blood positive stool: FOBT (+) stool does not necessarily mean someone is having a GI bleed. Her hemoglobin has dropped since admit but that could be related to fluid status as she is not getting dialyzed and her current hemoglobin is stable from before. I don't think EGD is warranted yet as I am not convinced she is bleeding. As well, if dialysis is stopped, then EGD won't add much to her hospital course unless acute GI bleeding and decision is made to proceed. I certainly don't think she would complete colonoscopy prep at this time. History of Present Illness Reason for Consultation: FOBT positive Attending Physician: Maranda Benton MD History of Present Illness 78 year old female with ESRD on dialysis admitted with lethargy and leukocytosis. Black stool was reported and stool was "FOBT +". Patient is very hard of hearing but she tells me she has no issues with her stomach now except she is hungry. She is not aware of having any bleeding. She has no nausea or vomiting or abdominal pain. She had three EGD in the year 2022. There is curre ntly discussion about the need for continued dialysis as she has a habit of refusing or it having to be stopped early due to hypotension. Allergies Allergy/AdvReac Type Severity Reaction Status Date / Time No Known Allergies Allergy Verified 06/04/24 10:11 Home Medications Medication Instructions Recorded Confirmed Type aspirin 81 mg tablet,delayed 162 mg PO 3XWK 11/15/21 06/04/24 History release atorvastatin 80 mg tablet 80 mg PO QPM 11/15/21 06/04/24 History carbidopa 25 mg-levodopa 100 mg 1 tab PO TIDWMEAL 11/15/21 06/04/24 History tablet docusate sodium 100 mg capsule 100 mg PO DAILY 11/15/21 06/04/24 History (Colace) levothyroxine 125 mcg tablet 125 mcg PO QAM 11/15/21 06/04/24 History pregabalin 100 mg capsule 100 mg PO BID 11/15/21 06/04/24 History pantoprazole 20 mg tablet,delayed 20 mg PO BID 05/23/22 06/04/24 History release epinephrine 0.3 mg/0.3 mL 0.3 mg IM DIRECTED PRN 09/05/22 06/04/24 History injection, auto-injector (EpiPen) Anaphylaxis melatonin 10 mg tablet 10 mg PO HS 09/05/22 06/04/24 History ferric citrate 210 mg iron tablet 420 mg PO DIRECTED 01/21/23 06/04/24 History (Auryxia) fluticasone furoate 200 1 inh inhalation AMHS 01/21/23 06/04/24 History mcg-vilanterol 25 mcg/dose inhalation powder (Breo Ellipta) cholecalciferol (vitamin D3) 25 25 mcg PO DAILY 10/27/23 06/04/24 History mcg (1,000 unit) capsule vitamin B complex-vitamin C-folic 1 tab PO DAILY 10/27/23 06/04/24 History acid 0.8 mg tablet (Nanci-Samuel) acetaminophen 325 mg tablet 325 - 650 mg PO Q6 PRN MILD-SEVERE 05/06/24 06/04/24 History PAIN acetaminophen 500 mg tablet 500 mg PO QID Leg Pain 05/06/24 06/04/24 History diclofenac sodium 1 % topical gel 2 g topical QID 05/06/24 06/04/24 History escitalopram oxalate 10 mg tablet 10 mg PO QAM 05/06/24 06/04/24 History ferric citrate 210 mg iron tablet 210 mg PO DAILY PRN WITH SNACKS 05/06/24 06/04/24 History (Auryxia) ipratropium 0.5 mg-albuterol 3 mg 3 ml inhalation Q4 PRN Wheezing 05/06/24 06/04/24 History (2.5 mg base)/3 mL nebulization soln lidocaine-prilocaine 2.5 %-2.5 % 1 applic topical 3XWK 05/06/24 06/04/24 History topical cream midodrine 5 mg tablet 5 mg PO DIRECTED 05/06/24 06/04/24 History ondansetron HCl 4 mg tablet 4 mg PO Q6H PRN Nausea And Vomiting 05/06/24 06/04/24 History bisacodyl 10 mg rectal suppository 10 mg WV DAILY PRN Constipation 06/04/24 History bisacodyl 5 mg tablet,delayed 5 mg PO DAILY PRN Constipation 06/04/24 06/04/24 History release menthol 0.44 %-zinc oxide 20.6 % 1 applic topical DAILY 06/04/24 06/04/24 History topical paste nystatin 100,000 unit/gram topical 1 applic topical HS 06/04/24 06/04/24 History powder Patient History Medical History ESRD on hemodialysis Thickened endometrium Acute ischemic stroke NSTEMI (non-ST elevated myocardial infarction) Elevated troponin I level AV fistula R arm Limb alert care status R arm History of recent hospitalization d/c 09/09/22>per medical record, pt sent to ER at [facility] following dialysis for reddened sores on her buttocks. Admitting dx was enterococcus UTI, decubitus ulcer and sacral cellulitis. Difficult intravenous access Black stools Mobility impaired pt non compliant with hx pt treatments / PT IS IN WHEELCHAIR/TOTAL ASSIST Poor short term memory NINILCHIK (hard of hearing) COPD (chronic obstructive pulmonary disease) no medications for currently History of stroke 2019- pts spouse poor historian pt denies hx stroke History of anesthesia reaction "hard time waking up" Hx: recurrent pneumonia History of COVID-19 ? early 2021- mild congestion, no hospitalization, no current issues Non-ST elevation IN (NSTEMI) pt spouse not sure/ mild ? remembers something mentioned in hx/ ? details ESRD (end stage renal disease) on dialysis tues, thur & sat ([place]) Aspiration pneumonia HX Morbid obesity Rheumatoid arthritis ? current status/no meds for Chronic diastolic heart failure EF 50% on 01/2020 echo RACHEL (iron deficiency anemia) Subdural hematoma hx fall 2019 - tx to [facility]/no surgical intervention RENÉ on CPAP Depression Meniere's disease Generalized anxiety disorder Dyslipidemia Restless leg syndrome Diabetes mellitus, type II hx / NO MEDS HTN (hypertension) Surgical History Hx of arteriovenostomy for renal dialysis right arm History of tubal ligation History of carpal tunnel surgery B/L History of orthopedic surgery " bilat heel surgery" H/O sinus surgery Hx of total knee arthroplasty B/L Family History Other AAA (abdominal aortic aneurysm) Diabetes Family history non-contributory Hypertension Myotonic dystrophy Social History Smoking Status: Unknown if ever smoked Second Hand Exposure: No; Preferred Language: Bahraini Communication Ability: Impaired 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 Required: No Beliefs That Will Affect Care: None marital status: Current Living Situation: Shelter Current Living Situation Comment: [facility] Assistive Devices: Hospital Bed and Mechanical Lift Review of Systems Review of Systems: Unobtainable due to cognitive status Physical Exam Constitutional: WD/WN, vitals as above + ill appearing Neck: trachea midline, no thyromegaly Respiratory: normal respiratory effort, lungs clear to auscultation Cardiovascular: RRR, no murmur, no edema Gastrointestinal (Abdomen): normal bowel sounds, soft, nontender, no hepatosplenomegaly Results & Data Vital Signs (Past 12 Hours) Vital Signs Temp Pulse Pulse Resp BP Pulse Ox O2 Del Method 06/06/24 09:05 Nasal Cannula 06/06/24 07:59 36.8 C 57 L 16 92/55 L 99 Room Air 06/06/24 07:22 63 06/06/24 03:12 36.4 C L 64 22 124/44 L 94 Nasal Cannula 06/06/24 02:35 62 20 96 06/05/24 22:20 63 18 96 O2 Flow Rate 06/06/24 09:05 1 06/06/24 07:59 06/06/24 07:22 06/06/24 03:12 1 06/06/24 02:35 2 06/05/24 22:20 2 Laboratory Results 06/06/24 Range/Units 05:26 WBC 18.01 H (4.8-10.8) K/ul RBC 2.74 L (4.20-5.40) M/uL Hgb 9.4 L (12.0-16.0) g/dl Hct 28.9 L (37.0-47.0) % MCV 105.5 H (80.0-100.0) fL MCH 34.3 H (25.0-34.0) pg MCHC 32.5 (32.0-36.0) g/dL RDW Std Deviation 58.2 H (36.4-46.3) fL RDW Coeff of Bhavin 15.5 H (11.5-14.5) % Plt Count 163 (130-400) K/uL MPV 10.8 (9.4-12.4) fL Immature Gran % (Auto) 2.5 % Neut % (Auto) 83.1 % Lymph % (Auto) 3.8 % Tama % (Auto) 6.2 % Eos % (Auto) 3.8 % Baso % (Auto) 0.6 % Neut # (Auto) 14.97 H (1.40-6.50) K/uL Lymph # (Auto) 0.69 L (1.20-3.40) K/uL Tama # (Auto) 1.11 H (0.11-0.59) K/uL Eos # (Auto) 0.68 H (0.00-0.50) K/uL Baso # (Auto) 0.11 (0.00-0.20) K/uL Immature Gran # (Auto) 0.45 H (0.01-0.20) K/uL Sodium 139 (136-145) mmol/L Potassium 3.6 (3.5-5.1) mmol/L Chloride 99 (98-107) mmol/L Carbon Dioxide 25 (21-32) mmol/L Anion Gap 15 H (3-11) BUN 68 H (6-23) mg/dl Creatinine 9.79 H* D (0.6-1.2) mg/dl Est Cr Clr Drug Dosing 5.6 ml/min eGFR 3.76 BUN/Creatinine Ratio 6.9 L (10-20) Glucose 111 H (70-99(Fasting)) mg/dl Calcium 8.8 (8.6-10.3) mg/dl Phosphorus 5.9 H (2.5-4.9) mg/dl Magnesium 1.9 (1.7-2.4) mg/dl Total Bilirubin 0.4 (0.2-1.0) mg/dl AST 15 (13-39) U/L ALT 3 L (7-52) U/L Alkaline Phosphatase 73 (34-104) U/L Total Protein 5.8 L (6.0-8.3) gm/dl Albumin 3.2 L (3.4-5.0) gm/dl Globulin 2.6 (2.5-4.0) gm/dl Albumin/Globulin Ratio 1.2 (0.9-2) Diagnostic Findings Chest X-Ray 06/04/24 07:33 EXAM: XR chest 1V portable CLINICAL HISTORY: Chest pain, nonspecific TECHNIQUE: X-ray chest was performed in 1 view: PA projection. COMPARISON: Prior chest angioCT dated 05/21/2024 and previous chest CR dated 06/04/2024 FINDINGS: Prominent bilateral hilar with increased bronchovascular markings and possible cephalization. Opacity in the cardiophrenic angle represents the epicardial fat pad. Blunting of the right costophrenic angles. Patchy haziness in the bilateral lung anand predominantly in the lower zones. The apparent widening of the mediastinum. Mild to moderate cardiomegaly. Degenerative changes in the thoracic cage. IMPRESSION: 1. The imaging findings are likely due to the pulmonary edema, however, the possibility of infection cannot be ruled out. 2. No interval changes are seen regarding the previous examinations. Electronically signed by Gulshan Bowie 06-04-2024 08:56 AM Abdomen/Pelvis CT 06/04/24 09:[address] WITHOUT CONTRAST CT DOSE: 2996 HISTORY: ams, sepsis, esrd TECHNIQUE: Multiaxial CT images of the abdomen and pelvis were performed without contrast. A dose lowering technique was utilized adhering to the principles of ALARA. COMPARISON STUDY: 05/23/2022 FINDINGS: There are severe coronary artery calcifications. ABDOMEN: Liver, gallbladder, spleen, pancreas, and adrenal glands have an unremarkable non-IV contrasted appearance. Stable atrophy of the kidneys. There is no hydronephrosis bilaterally. There are a few small nonobstructing renal calculi. There are scattered atherosclerotic calcifications. No abdominal aortic aneurysm. Pelvis: Uterus and adnexa are grossly unremarkable. Urinary bladder is empty. There is moderate retained stool. There is mild colonic diverticulosis. No acute diverticulitis. There is mild wall thickening at the colon diffusely most prominent at the rectosigmoid. No other bowel inflammation or obstruction. No free fluid, free air, or abscess. No enlarged adenopathy. There is severe lumbar degenerative disc disease. There are severe degenerative changes at the hips. IMPRESSION: Mild colitis. No other acute findings. ACT 112: Negative or not required by law. The above report was generated using voice recognition software. It may contain grammatical, syntax or spelling errors. Electronically signed by: Zurdo Sanchez M.D. 06/04/2024 9:[address] 06/04/24 09:03 CT OF THE CHEST WITHOUT IV CONTRAST CLINICAL HISTORY: Altered mental status. Sepsis. End-stage renal disease. COMPARISON STUDY: Chest CT May 21, 2024. Chest radiograph performed earlier today. CT DOSE: 2996.11 mGy.cm TECHNIQUE: Axial images of the chest were obtained without IV contrast. Images were reviewed in the axial, sagittal, and coronal planes. IV contrast was not administered for this examination. Automated exposure control was utilized for the study. A dose lowering technique was utilized adhering to the principles of ALARA. FINDINGS: No enlarged axillary, mediastinal or hilar lymph nodes are present. Moderate cardiomegaly and extensive coronary artery calcification are again noted. There is no pericardial effusion. No pneumothorax or pleural effusion is present. Multifocal groundglass opacities within the lungs are similar to CT of May 21, 2024. No confluent consolidation is present. Central airways are patent. Lungs are suboptimally assessed due to respiratory motion. No discrete pulmonary nodules are identified. No acute fractures are identified. There is extensive anterior osteophytosis of the thoracic spine. IMPRESSION: 1. No change in multifocal groundglass opacities since CT of May 21, 2024. These are nonspecific and may represent an infectious process or pulmonary edema. 2. Moderate cardiomegaly and extensive coronary artery calcification. 3. No pneumothorax or pleural effusion. ACT 112: Negative or not required by law. Electronically signed by: Bryn Tanner M.D. 06/04/2024 9:[address] 06/04/24 09:03 CT OF THE HEAD WITHOUT CONTRAST CLINICAL HISTORY: Altered mental status. COMPARISON STUDY: Head CT May 21, 2024. TECHNIQUE: Helical axial images of the head were obtained without IV contrast. Automated exposure control was utilized for the study. A dose lowering technique was utilized adhering to the principles of ALARA. FINDINGS: No acute intracranial hemorrhage, midline shift or mass effect is present. The ventricular system is stable. White matter hypodensities are unchanged and favor small vessel disease. Sulcal enlargement is due to atrophy. This is unchanged. The basal cisterns are patent. No extra-axial collections are present. There are no findings to suggest acute dural sinus thrombosis or acute territorial infarct. There are no calvarial fractures. A small amount of fluid within the bilateral mastoid air cells is unchanged. Mucosal thickening within the right maxillary and less in the sinuses is unchanged. There are postoperative findings within the sinuses. IMPRESSION: No acute intracranial findings. No change in appearance of the brain. ACT 112: Negative or not required by law. Electronically signed by: Bryn Tanner M.D. 06/04/2024 9:45 AM
--- NOTE | 2024-06-06 10:55 | Hospitalist Progress Note ---
Date of Service June 06, 2024 Assessment & Plan (1) Encephalopathy: (2) ESRD (end stage renal disease) on dialysis: (3) Chronic diastolic heart failure: (4) Rheumatoid arthritis: (5) Morbid obesity: (6) COPD (chronic obstructive pulmonary disease): Plan Acute metabolic encephalopathy Acute on chronic hypotension Leukocytosis Sepsis CT scans with ongoing pneumonitis v edema reported, doing fairly well from an oxygenation standpoint, with [address] abd/pelvis noting possible colitis,increased stool burden as well/constipation trial suppository, and work on bowel regimen when able to take po Blood Cx NGTD Continue IV Zosyn with noted improvement in leukocytosis Follow infectious work up Palliative care consulted, appreciate further recs, polst reviewed ESRD nephrology consulted Possible GI Bleed FOBT positive IV PPI GI consulted, appreciate recs Monitor H/H Other chronic medical conditions: Parkinson disease Hypothyroidism Obstructive sleep apnea Orthostatic hypotension-continue midodrine DVT ppx: teds, scds Lines: PIV x 1, AVF right arm FEN/GI: Renal CODE: DNR/DNI--POLST reviewed from facility and says DNR/DNI. Dispo: PT/OT for further recs Admission and Anticipated Discharge Date Admission Date: June 04, 2024 Subjective Pt was seen in the AM Sleepy now having many bowel movements Review of Systems Review of Systems: All systems reviewed & are unremarkable except as noted in Subjective Physical Exam Physical Exam: General: Alert, oriented. No acute distress HEENT: NC/AT CV: RRR Resp: no increased effort of breathing Abdomen: Soft, tender Extremities: No edema in lower extremities bilaterally. Results & Data Results & Data Vital Signs (Past 12 Hours) Vital Signs Temp Pulse Pulse Resp BP Pulse Ox O2 Del Method 06/06/24 09:05 Nasal Cannula 06/06/24 07:59 36.8 C 57 L 16 92/55 L 99 Room Air 06/06/24 07:22 63 06/06/24 03:12 36.4 C L 64 22 124/44 L 94 Nasal Cannula 06/06/24 02:35 62 20 96 O2 Flow Rate 06/06/24 09:05 1 06/06/24 07:59 06/06/24 07:22 06/06/24 03:12 1 06/06/24 02:35 2 (4) Rheumatoid arthritis Rheumatoid arthritis location: unspecified site Rheumatoid factor presence: unspecified presence Qualified Code(s): M06.9 - Rheumatoid arthritis, unspecified
--- NOTE | 2024-06-06 11:29 | Nephrology Progress Note ---
Date of Service June 06, 2024 Assessment & Plan Admission and Anticipated Discharge Date Admission Date: June 04, 2024 Subjective Assessment & Plan (1) ESRD (end stage renal disease) on dialysis: Dialysis was not possible today because of Obtundation and very low BP. Also she refused. Has been same during previous admissions--very low BP making us shorten and sstop dialysis frequently. No dialysis today. NO e/o vol overload. In fact she appear vol depleted and Low K will give some kcl.. wanted to discuss about continuing dialysis. However no hearing aid so could not ask her questions. not at bedside. I tried to call him by phone and left message. Usually convinces her to do dialysis and she has frequently refused doing dialysis before. Palliative med to be involved. I will like to talk with and tell him that continuing dialysis at this stage is not good for patient's interest. She is rapidly declining and frequently refuses dialysis anyway. Or we shorten and Stop because of Low BP and other issues. I had discussion with patient--she said She does not want to do dialysis but then is suprised to hear that stopping dialysis typicall means . Then she did not pursue further and said she will think about it. not present. I have given my cellphone to RN. NO dialysis today. If we decide to continue Dialysis then next HD will be friday. (2) Acute encephalopathy: Likely related with Sepsis. High WBC but coming down and Somewhat better. (3) Sepsis: time spent 38 mins. S--No new issues today. was able to hear today--has hearing aid. Physical Exam Physical Exam: General: awakens to verbal stimuli, no apparent distress, somnolent, morbidly obese Chest: Diminished breath sounds throughout, + belly breathing, on oximask, turned O2 down from 6 L to 2 L at bedside and maintains O2 sats at 99-100%. Cardiac: Regular rate and rhythm, no murmur, no JVD, normal peripheral pulses, good capillary refill Abdominal: NABS x 4 quadrants, soft, nondistended, nontender to palpation, no rebound or guarding Extremities: AVF right arm, Normal inspection, no peripheral edema or erythema, calfs nontender to palpation Psych: Normal mood and affect Neuro: Awakens to verbal stimuli, cannot assess strength Results & Data Vital Signs (Past 12 Hours) Vital Signs Temp Pulse Pulse Resp BP Pulse Ox O2 Del Method 06/06/24 09:05 Nasal Cannula 06/06/24 07:59 36.8 C 57 L 16 92/55 L 99 Room Air 06/06/24 07:22 63 06/06/24 03:12 36.4 C L 64 22 124/44 L 94 Nasal Cannula 06/06/24 02:35 62 20 96 O2 Flow Rate 06/06/24 09:05 1 06/06/24 07:59 06/06/24 07:22 06/06/24 03:12 1 06/06/24 02:35 2
[2024-06-07 05:32] LABS: Basophils # (auto) 0.09 K/uL (0.00-0.20); Basophils % (auto) 0.7 %; Eosinophils # (auto) 0.62 K/uL (0.00-0.50); Eosinophils % (auto) 4.8 %; Hematocrit (blood only) 29.1 % (37.0-47.0); Hemoglobin 9.6 g/dl (12.0-16.0); Immature Granulocytes # (auto) 0.64 K/uL (0.01-0.20); Lymphocytes % (auto) 5.4 %; Mean Corpuscular Hemoglobin 34.4 pg (25.0-34.0); Mean Corpuscular Volume 104.3 fL (80.0-100.0); Mean Platelet Volume 10.6 fL (9.4-12.4); Monocytes # (auto) 0.95 K/uL (0.11-0.59); Monocytes % (auto) 7.4 %; Neutrophils # (auto) 9.89 K/uL (1.40-6.50); Neutrophils % (auto) 76.7 %; Platelet Count 152 K/uL (130-400); RDW Coefficient of Variation 15.3 % (11.5-14.5); RDW Standard Deviation 57.6 fL (36.4-46.3); Red Blood Count 2.79 M/uL (4.20-5.40); White Blood Count 12.89 K/ul (4.8-10.8)
[2024-06-07 05:56] LABS: Albumin Globulin Ratio 1.1 (0.9-2); BUN Creatinine Ratio 6.2 (10-20); Bilirubin,Total 0.3 mg/dl (0.2-1.0); Calcium 8.8 mg/dl (8.6-10.3); Creatinine Clr Calc Pharmacy 4.5 ml/min; Globulin 2.8 gm/dl (2.5-4.0); Magnesium 1.8 mg/dl (1.7-2.4); Phosphorus 7.3 mg/dl (2.5-4.9); Potassium 3.3 mmol/L (3.5-5.1); Total Protein 5.8 gm/dl (6.0-8.3)
[2024-06-07] MEDS ORDERED: ASPIRIN 81 MG ECTAB PO SCH (06:00)
[2024-06-07] MEDS: MIDODRINE HCL 2.5 MG TAB PO SCH (07:48)
[2024-06-07] MEDS: ADVANCED PROBIOTIC 625 MG CAPSULE PO SCH (07:49)
[2024-06-07] MEDS ORDERED: EPOETIN ALFA 10,000 UNITS in SYRINGE 0 ML IV SCH (09:00)
[2024-06-07] MEDS: EPOETIN ALFA 10,000 UNITS/ML VIAL IV SCH (11:15)
--- NOTE | 2024-06-07 12:51 | Dialysis Progress Note ---
Date of Service June 07, 2024 Assessment & Plan Admission and Anticipated Discharge Date Admission Date: June 04, 2024 Subjective Assessment & Plan (1) ESRD (end stage renal disease) on dialysis: patient and is making dialysis on a day-by-day decision which is very impractical.She wanted to do dialysis but then started making unrealistic remains during dialysis like only 1 needle to be used which is impossible. however, when I had a long discussion with the yesterday he seemed to have come to the realization that if patient keep refusing dialysis he will be accepting to the fact. If we decide to continue Dialysis then next HD will be Friday. potassium is low and she typically drops blood pressure making fluid removal very difficult (2) Acute encephalopathy: Likely related with Sepsis. much better now S-- patient was seen during dialysis. She seems much less confused. She wanted to do dialysis but then started making unrealistic remains during dialysis like only 1 needle to be used which is impossible. Physical Exam Physical Exam: General: awakens to verbal stimuli, no apparent distress, somnolent, morbidly obese Chest: Diminished breath sounds throughout, + belly breathing, on oximask, turned O2 down from 6 L to 2 L at bedside and maintains O2 sats at 99-100%. Cardiac: Regular rate and rhythm, no murmur, no JVD, normal peripheral pulses, good capillary refill Abdominal: NABS x 4 quadrants, soft, nondistended, nontender to palpation, no rebound or guarding Extremities: AVF right arm, Normal inspection, no peripheral edema or erythema, calfs nontender to palpation Psych: Normal mood and affect Neuro: Awakens to verbal stimuli, cannot assess strength Results & Data Vital Signs (Past 12 Hours) Vital Signs Temp Pulse Pulse Resp BP BP Pulse Ox 06/07/24 10:30 48 L 100/50 L 06/07/24 10:00 51 L 120/58 L 06/07/24 09:37 52 L 123/75 06/07/24 07:54 37.0 C 67 20 133/72 97 06/07/24 07:53 06/07/24 03:53 37.1 C 56 L 16 135/75 100 06/07/24 02:30 61 21 99 O2 Del Method O2 Flow Rate 06/07/24 10:30 06/07/24 10:00 06/07/24 09:37 06/07/24 07:54 Nasal Cannula 06/07/24 07:53 Room Air 06/07/24 03:53 BiPAP 06/07/24 02:30 2
--- NOTE | 2024-06-07 14:10 | Hospitalist Progress Note ---
Date of Service June 07, 2024 Assessment & Plan (1) Encephalopathy: (2) ESRD (end stage renal disease) on dialysis: (3) Chronic diastolic heart failure: (4) Rheumatoid arthritis: (5) Morbid obesity: (6) COPD (chronic obstructive pulmonary disease): Plan Acute metabolic encephalopathy Acute on chronic hypotension Leukocytosis Sepsis CT scans with ongoing pneumonitis v edema reported, doing fairly well from an oxygenation standpoint, with [address] abd/pelvis noting possible colitis,increased stool burden as well/constipation trial suppository, and work on bowel regimen when able to take po Blood Cx NGTD Continue IV Zosyn with noted improvement in leukocytosis Follow infectious work up Palliative care consulted, appreciate further recs, polst reviewed ESRD nephrology consulted Possible GI Bleed FOBT positive IV PPI GI consulted, appreciate recs Monitor H/H Other chronic medical conditions: Parkinson disease Hypothyroidism Obstructive sleep apnea Orthostatic hypotension-continue midodrine DVT ppx: teds, scds Lines: PIV x 1, AVF right arm FEN/GI: Renal CODE: DNR/DNI--POLST reviewed from facility and says DNR/DNI. Dispo: PT/OT for further recs Admission and Anticipated Discharge Date Admission Date: June 04, 2024 Subjective Pt was seen while up in dialysis [facility] Review of Systems Review of Systems: All systems reviewed & are unremarkable except as noted in Subjective Physical Exam Physical Exam: General: Alert, oriented. No acute distress HEENT: NC/AT CV: RRR Resp: no increased effort of breathing Abdomen: Soft, tender Extremities: edema in lower extremities bilaterally. Results & Data Results & Data Vital Signs (Past 12 Hours) Vital Signs Temp Pulse Pulse Pulse Resp BP BP 06/07/24 12:47 36.6 C 73 134/54 L 06/07/24 12:30 103 H 100/51 L 06/07/24 12:00 61 71/35 L 06/07/24 11:30 58 L 124/56 L 06/07/24 11:00 54 L 116/66 06/07/24 10:30 48 L 100/50 L 06/07/24 10:00 51 L 120/58 L 06/07/24 09:37 52 L 123/75 06/07/24 09:18 36.8 C 73 06/07/24 07:54 37.0 C 67 20 133/72 06/07/24 07:53 06/07/24 03:53 37.1 C 56 L 16 135/75 06/07/24 02:30 61 21 Pulse Ox O2 Del Method O2 Flow Rate 06/07/24 12:47 06/07/24 12:30 06/07/24 12:00 06/07/24 11:30 06/07/24 11:00 06/07/24 10:30 06/07/24 10:00 06/07/24 09:37 06/07/24 09:18 06/07/24 07:54 97 Nasal Cannula 06/07/24 07:53 Room Air 06/07/24 03:53 100 BiPAP 06/07/24 02:30 99 2 (4) Rheumatoid arthritis Rheumatoid arthritis location: unspecified site Rheumatoid factor presence: unspecified presence Qualified Code(s): M06.9 - Rheumatoid arthritis, unspecified
[2024-06-07] MEDS: EPOETIN ALFA 10,000 UNITS/ML VIAL SQ SCH (14:11)
--- NOTE | 2024-06-07 16:25 | Communication Note ---
Date of Service: June 07, 2024 [facility] meeting scheduled with spouse and adult daughters for 06/08 at 12:30. Thank you for including Palliative Care in the management of this patient. Pt w as in HD when I attempted to evaluate today, full consultation will be completed with [facility] meeting. Thank you for allowing me to participate in the care of this patient. No charges for service this date.
[2024-06-08 08:42] LABS: Hematocrit (blood only) 30.5 % (37.0-47.0); Hemoglobin 9.9 g/dl (12.0-16.0); Mean Corpuscular Hemoglobin 33.8 pg (25.0-34.0); Mean Corpuscular Hgb Conc 32.5 g/dL (32.0-36.0); Mean Corpuscular Volume 104.1 fL (80.0-100.0); Mean Platelet Volume 10.2 fL (9.4-12.4); Platelet Count 144 K/uL (130-400); RDW Coefficient of Variation 15.9 % (11.5-14.5); Red Blood Count 2.93 M/uL (4.20-5.40); White Blood Count 11.35 K/ul (4.8-10.8)
[2024-06-08 09:06] LABS: Basophils # (auto) 0.19 K/uL (0.00-0.20); Basophils % (auto) 1.7 %; Eosinophils % (auto) 5.3 %; Immature Granulocytes # (auto) 1.07 K/uL (0.01-0.20); Immature Granulocytes % (auto) 9.4 %; Lymphocytes # (auto) 0.97 K/uL (1.20-3.40); Lymphocytes % (auto) 8.5 %; Monocytes # (auto) 0.75 K/uL (0.11-0.59); Monocytes % (auto) 6.6 %; Neutrophils # (auto) 7.77 K/uL (1.40-6.50); Neutrophils % (auto) 68.5 %; Stomatocytes 1+
[2024-06-08 09:09] LABS: Albumin Level 3.1 gm/dl (3.4-5.0); Bilirubin,Total 0.4 mg/dl (0.2-1.0); Calcium 9.1 mg/dl (8.6-10.3); Magnesium 1.7 mg/dl (1.7-2.4); Potassium 3.2 mmol/L (3.5-5.1)
[2024-06-08 09:21] LABS: BUN Creatinine Ratio 4.5 (10-20); Creatinine Clr Calc Pharmacy 7.5 ml/min; Globulin 3.1 gm/dl (2.5-4.0); Phosphorus 4.6 mg/dl (2.5-4.9); Total Protein 6.2 gm/dl (6.0-8.3)
--- NOTE | 2024-06-08 12:03 | Hospitalist Progress Note ---
Date of Service June 08, 2024 Assessment & Plan (1) Encephalopathy: (2) ESRD (end stage renal disease) on dialysis: (3) Chronic diastolic heart failure: (4) Rheumatoid arthritis: (5) Morbid obesity: (6) COPD (chronic obstructive pulmonary disease): Plan Notified by palliative care that pt and family decided to transition to ABSORBER OPERATOR after discussion on 06/08/24. CM assisting with placement- family does not want pt to return to [facility]. She was previously treated for the following: Acute metabolic encephalopathy Acute on chronic hypotension Leukocytosis Sepsis CT scans with ongoing pneumonitis v edema reported, doing fairly well from an oxygenation standpoint, with [address] abd/pelvis noting possible colitis,increased stool burden as well/constipation trial suppository, and work on bowel regimen when able to take po Blood Cx NGTD Continue IV Zosyn with noted improvement in leukocytosis Follow infectious work up Palliative care consulted, appreciate further recs, polst reviewed ESRD nephrology consulted Possible GI Bleed FOBT positive IV PPI GI consulted, appreciate recs Monitor H/H Other chronic medical conditions: Parkinson disease Hypothyroidism Obstructive sleep apnea Orthostatic hypotension-continue midodrine DVT ppx: teds, scds Lines: PIV x 1, AVF right arm FEN/GI: Renal CODE: DNR/DNI--POLST reviewed from facility and says DNR/DNI. Dispo: PT/OT for further recs Admission and Anticipated Discharge Date Admission Date: June 04, 2024 Subjective Notified by Palliative care that pt was transitioned to ABSORBER OPERATOR Review of Systems Review of Systems: All systems reviewed & are unremarkable except as noted in Subjective Physical Exam Physical Exam: General: Alert, oriented. No acute distress HEENT: NC/AT CV: RRR Resp: no increased effort of breathing Abdomen: Soft, tender Extremities: edema in lower extremities bilaterally. Results & Data Results & Data Vital Signs (Past 12 Hours) Vital Signs Temp Pulse Pulse Pulse Resp BP Pulse Ox 06/08/24 08:16 36.9 C 67 22 133/53 L 94 06/08/24 08:00 06/08/24 04:03 36.6 C 67 18 131/68 94 06/08/24 02:30 68 18 98 O2 Del Method O2 Flow Rate 06/08/24 08:16 Room Air 06/08/24 08:00 Room Air 06/08/24 04:03 BiPAP 06/08/24 02:30 2 (4) Rheumatoid arthritis Rheumatoid arthritis location: unspecified site Rheumatoid factor presence: unspecified presence Qualified Code(s): M06.9 - Rheumatoid arthritis, unspecified
[2024-06-08] MEDS ORDERED: ONDANSETRON INJ 2 MG/ML 2 ML VIAL IV PRN (13:53)
[2024-06-08] MEDS ORDERED: ONDANSETRON 4 MG OD TAB PO PRN (14:07)
--- NOTE | 2024-06-08 18:13 | Palliative Care Consultation ---
Date of Consultation June 08, 2024 Assessment & Plan (1) Palliative care by specialist: Met with pt's spouse / HCPOA and daughter Kenia Lester Raymond in private room, pt's daughter Jeanne Schmitt participated by phone. Introduced Palliative Medicine and explained our role in advanced care planning, symptom management and navigation through the progression of life limiting disease. Patient/s family was receptive to palliative services for goals of care discussions. Reviewed we are different from hospice, a home health nurse visiting service. ACP / GOC discussion held from 12:30 - 13;20 (2) Advance directive in chart: Patient has exhibited current lack of decisional capacity based on the inability to convey understanding of personal PMHx, current medical condition, treatment options nor the risks / benefits of those options, and lack of ability to make decisions based on such knowledge. Hospital does have written documentation of patient wishes concerning her chosen proxy for medical decisions. AD paperwork on file which was properly executed by patient on 07/27/2001 designates 1. patient's spouse Wesley Hassan as primary HCPOA and 2. Irma Hughes; 3. Kenia Raymond or 4. Jeanne Lester [place] as back up HCPOA for all medical decisions in the event she lacks decisional capacity. Pt does require a proxy for medical decisions. Phone contact made with pt's HCPOA/spouse Wesley, planned meeting to discuss GOC for tomorrow. (3) Counseling regarding goals of care: Discussed goals of care with family. Wesley shared that he had been told by the nephrology team that the pt is no longer gaining any lasting benefit from HD and is also not tolerating it. He shared that nephrology had suggested he consider hospice care given pt's lack of improvement and repeated hemodynamic decompensation through attempts at HD. Kenia and Jeanne shared that they worry that the pt is suffering and are in agreement with transition to comfort directed care. We discussed that transition to LOG SORTING SUPERVISOR would mean not only stopping HD, but also all labs, diagnostics and life prolonging treatments. Encouraged family that medications to assure physical and emotional comfort would continue including medications to control parkinsonian tremors. Family expressed understanding. Discussed hospice benefit: an interdisciplinary program offered by nurses, nurses aides, social workers, chaplains and a medical claims manager for patients with a terminal condition and a life expectancy of less than 6 months. This is covered by Medicare at 100%/no out of pocket expense to patient and all meds/supplies needed by patient for the reason they are on hospice are paid for/covered by hospice. The goal is assure quality of life of the patient in their home setting (home, jail, inpatient hospice setting) by providing symptoms management, psychosocial and spiritual support. However, they cannot offer 24 hours care and if the family is unable to provide that care, they will have to consider personal care with out of pocket cost vs. jail placement. We discussed the goals of hospice as a patient service and the goals of care; we discussed EOL trajectories and transitions melania the emotional impact of realizing mortality as a concrete reality from prior abstract considerations. Pt was reassured that no matter where they are along this trajectory, they are not alone - their medical team will remain by their side through their journey. Discussed the pros/cons of accepting help when especially weakened and distres sed by pain-which would also help provide relief/decrease caregiver burden/strain. Wesley expressed desire for hospice to continue through end of life for pt in the hospital. We discussed the GIP criteria and that pt does not currently fit criteria for GIP hospice, but should she decompensate without HD she would be evaluated for GIP. (4) Comfort measures only status: Family request transition to comfort directed care and express hope that pt will fit criteria to remain in hospital for ongoing hospice care. (5) Need for comfort care: LOG SORTING SUPERVISOR - Symptom manamgement: Pain/dyspnea/tachypnea DILAUDID 0.5mg IVP PRN [id number] Consider titratable DILAUDID drip if pt requires >3 PRN doses in under two consecutive hours. Nausea/vomitting zofran 4mg IVP q4h PRN Agitation ativan 0.5mg IVP q4h PRN Hyperactive delirium haldol 5mg IVP q6h PRN Secretions - if repositioning not effective robinul 0.4mg IV q4h PRN atropine SL 3 drops Q1h PRN Nursing care: Discontinue all medications not directed towards comfort. Detether pt from IV tubing, monitor cables, and check vitals once per shift. Please continue HFNC and titrate down as able for patient comfort. Use medications above PRN for dyspnea/tachypnea and do not increase oxygen once titrated down. Assess q1h for pain/dyspnea and treat accordingly. (6) Encounter for end of life education, guidance and counseling: Discussed anticipatory guidance with family. Discussed changes pt may move through in the dying process including but not limited to sleeping more, disorientation when awake, restlessness, diminished senses/inability to respond to stimulus although ability to be aware of them remains intact longer, and changes in body temperatures, skin changes/mottling/cyanosis, respiratory pattern changes, and oral secretions. Family verbalized understanding. The goal is to assure a peaceful . EOL Rally: When a person facing the end of life rallies, they seem to become "more stable" - may want to talk or even begin taking PO; this phenomenon is usually seen as a sudden burst of energy before . This period of perking up can be accompanied by such a notable change in mental clarity that is often referred to as terminal lucidity. This change in cognition and behavior goes against everything families learn about the physical signs that the end of life is near. It is important to note that evidence-based data is elusive, if nonexistent. Theories support that it may be a search for a final, strong connection. Also, as organs shut down, they can release a steroid like compound that briefly rouses the body. Families and caregivers may grasp at what seems to be a turnaround in a loved ones health, however, the EOL Rally is a hallmark pre- sign. It is not uncommon for patients to show improvement before : they may want to talk while others may become restless or act as if they need to start preparing for a trip. Some patients will become more relaxed yet remain tuned in to what is going on around them, others will show signs of physical stability when, seconds before, they seemed on the verge of letting go. A rally can last for a few moments or even days. Short or long, these temporary improvements can have a profound effect on loved ones who are keeping townsend. Like a moment of clarity for someone who has dementia, a rally is one last opportunity to connect with a loved one. Each persons experience is unique and impossible to predict with total accuracy. Life is full of questions, and some of them simply are not meant to be answered. Plan LOG SORTING SUPERVISOR, Palliative care will continue to follow for ongoing EOL pt care and family support. History of Present Illness Reason for Consultation: goals of care Requesting Physician: Maranda Benton MD Attending Physician: Maranda Benton MD History of Present Illness Ms Hassan is a 78-year-old female resident of [facility] with PMHx of HD dependent ESRD, demand ischemia type II VA with mild LVH, Parkinson's, hypothyroidism, obstructive sleep apnea, orthostatic hypotension, who was has had multiple readmissions over past several months. Most recently admitted here 05/21 - 05/27 for chest pain, volume overload, pneumonitis and acute hypoxic respiratory failure. Palliative care was consulted during that time and patient agreed to DNR/DNI status but wanted to continue all care otherwise. On 06/04, she was sent to ED from [facility] for AMS/hypotension prohibiting her scheduled HD treatment. This admission course has holland c/b sepsis, metabolic encephalopathy and difficulty dialyzing due to hypotension refractory to midodrine. Spouse previously has declined CRRT as option, stating that the pt will not tolerate being connected to machine for 24h. This pt is well known to palliative care team and we have been consulted this admit for assistance with ongoing GOC conversations. Allergies Allergy/AdvReac Type Severity Reaction Status Date / Time No Known Allergies Allergy Verified 06/04/24 10:11 Home Medications Medication Instructions Recorded Confirmed Type aspirin 81 mg tablet,delayed 162 mg PO 3XWK 11/15/21 06/04/24 History release atorvastatin 80 mg tablet 80 mg PO QPM 11/15/21 06/04/24 History carbidopa 25 mg-levodopa 100 mg 1 tab PO TIDWMEAL 11/15/21 06/04/24 History tablet docusate sodium 100 mg capsule 100 mg PO DAILY 11/15/21 06/04/24 History (Colace) levothyroxine 125 mcg tablet 125 mcg PO QAM 11/15/21 06/04/24 History pregabalin 100 mg capsule 100 mg PO BID 11/15/21 06/04/24 History pantoprazole 20 mg tablet,delayed 20 mg PO BID 05/23/22 06/04/24 History release epinephrine 0.3 mg/0.3 mL 0.3 mg IM DIRECTED PRN 09/05/22 06/04/24 History injection, auto-injector (EpiPen) Anaphylaxis melatonin 10 mg tablet 10 mg PO HS 09/05/22 06/04/24 History ferric citrate 210 mg iron tablet 420 mg PO DIRECTED 01/21/23 06/04/24 History (Auryxia) fluticasone furoate 200 1 inh inhalation AMHS 01/21/23 06/04/24 History mcg-vilanterol 25 mcg/dose inhalation powder (Breo Ellipta) cholecalciferol (vitamin D3) 25 25 mcg PO DAILY 10/27/23 06/04/24 History mcg (1,000 unit) capsule vitamin B complex-vitamin C-folic 1 tab PO DAILY 10/27/23 06/04/24 History acid 0.8 mg tablet (Nanci-Samuel) acetaminophen 325 mg tablet 325 - 650 mg PO Q6 PRN MILD-SEVERE 05/06/24 06/04/24 History PAIN acetaminophen 500 mg tablet 500 mg PO QID Leg Pain 05/06/24 06/04/24 History diclofenac sodium 1 % topical gel 2 g topical QID 05/06/24 06/04/24 History escitalopram oxalate 10 mg tablet 10 mg PO QAM 05/06/24 06/04/24 History ferric citrate 210 mg iron tablet 210 mg PO DAILY PRN WITH SNACKS 05/06/24 06/04/24 History (Auryxia) ipratropium 0.5 mg-albuterol 3 mg 3 ml inhalation Q4 PRN Wheezing 05/06/24 06/04/24 History (2.5 mg base)/3 mL nebulization soln lidocaine-prilocaine 2.5 %-2.5 % 1 applic topical 3XWK 05/06/24 06/04/24 History topical cream midodrine 5 mg tablet 5 mg PO DIRECTED 05/06/24 06/04/24 History ondansetron HCl 4 mg tablet 4 mg PO Q6H PRN Nausea And Vomiting 05/06/24 06/04/24 History bisacodyl 10 mg rectal suppository 10 mg IN DAILY PRN Constipation 06/04/24 06/04/24 History bisacodyl 5 mg tablet,delayed 5 mg PO DAILY PRN Constipation 06/04/24 06/04/24 History release menthol 0.44 %-zinc oxide 20.6 % 1 applic topical DAILY 06/04/24 06/04/24 History topical paste nystatin 100,000 unit/gram topical 1 applic topical HS 06/04/24 06/04/24 History powder Patient History Medical History ESRD on hemodialysis Thickened endometrium Acute ischemic stroke NSTEMI (non-ST elevated myocardial infarction) Elevated troponin I level AV fistula R arm Limb alert care status R arm History of recent hospitalization d/c 09/09/22>per medical record, pt sent to ER at [facility] following dialysis for reddened sores on her buttocks. Admitting dx was enterococcus UTI, decubitus ulcer and sacral cellulitis. Difficult intravenous access Black stools Mobility impaired pt non compliant with hx pt treatments / PT IS IN WHEELCHAIR/TOTAL ASSIST Poor short term memory [place] (hard of hearing) COPD (chronic obstructive pulmonary disease) no medications for currently History of stroke 2019- pts spouse poor historian pt denies hx stroke History of anesthesia reaction "hard time waking up" Hx: recurrent pneumonia History of COVID-19 ? early 2021- mild congestion, no hospitalization, no current issues Non-ST elevation VA (NSTEMI) pt spouse not sure/ mild ? remembers something mentioned in hx/ ? details ESRD (end stage renal disease) on dialysis tues, thur & sat ([place]) Aspiration pneumonia HX Morbid obesity Rheumatoid arthritis ? current status/no meds for Chronic diastolic heart failure EF 50% on 01/2020 echo RACHEL (iron deficiency anemia) Subdural hematoma hx fall 2019 [facility] RENÉ on CPAP Depression Meniere's disease Generalized anxiety disorder Dyslipidemia Restless leg syndrome Diabetes mellitus, type II hx / NO MEDS HTN (hypertension) Surgical History Hx of arteriovenostomy for renal dialysis right arm History of tubal ligation History of carpal tunnel surgery B/L History of orthopedic surgery " bilat heel surgery" H/O sinus surgery Hx of total knee arthroplasty B/L Family History Other AAA (abdominal aortic aneurysm) Diabetes Family history non-contributory Hypertension Myotonic dystrophy Social History Smoking Status: Unknown if ever smoked Second Hand Exposure: No; Preferred Language: Moldovan Communication Ability: Impaired Circuit Walker Required: No Beliefs That Will Affect Care: None marital status: Current Living Situation: [facility] Current Living Situation Comment: [facility] Assistive Devices: Hospital Bed and Mechanical Lift Review of Systems Review of Systems: Unobtainable due to cognitive status Physical Exam Constitutional: + ill appearing and + morbidly obese Eyes: PERRL, conjunctivae normal, anicteric sclerae ENMT: external ear and nose normal, oropharynx normal Neck: trachea midline, no thyromegaly Respiratory: normal respiratory effort, lungs clear to auscultation Cardiovascular: RRR, no murmur, no edema Gastrointestinal (Abdomen): normal bowel sounds, soft, nontender, no hepatosplenomegaly Musculoskeletal: CALLAHAN, generalized weakness Skin: no rashes, warm and dry + pallor Neurologic: drowsy, oriented to person only, delayed speech, able to follow some simple commands Results & Data Vital Signs (Past 12 Hours) Vital Signs Temp Pulse Resp BP Pulse Ox O2 Del Method 06/08/24 08:16 36.9 C 67 22 133/53 L 94 Room Air 06/08/24 08:00 Room Air Laboratory Results No further labs or diagnostics in concert with comfort directed care. Diagnostic Findings No further labs or diagnostics in concert with comfort directed care. Medications Administered Current Inpatient Medications Acetaminophen (Acetaminophen 325 Mg Tab) 650 mg PO Q4H PRN PRN Reason: Moderate Pain (Scale 4, 5, 6) Stop: 07/04/24 14:13 Albuterol (Albut/Ipratrop 3mg/0.5mg Neb 3 Ml Vial) 3 ml INH Q4 PRN; Protocol PRN Reason: Wheezing Stop: 07/04/24 13:22 Atropine Sulfate (Atropine Sulfate 1% Op Soln 5 Ml Btl) 4 drops SL Q1H PRN PRN Reason: Secretions or pulm congestion Stop: 07/08/24 13:52 Carbidopa/Levodopa (Carbidopa/Levodopa 25/100mg Tab) 1 tab PO TIDM BAYRON Stop: 07/04/24 13:29 Last Admin: 06/08/24 17:13 Dose: 1 tab Escitalopram Oxalate (Escitalopram Oxalate 10 Mg Tab) 10 mg PO QAM BAYRON Stop: 07/05/24 08:59 Last Admin: 06/08/24 08:36 Dose: 10 mg Glycopyrrolate (Glycopyrrolate 0.2 Mg/Ml Vial) 0.4 mg IV Q4H PRN PRN Reason: Rattling Secretions or Pulm Congestion Stop: 07/08/24 13:52 Levothyroxine Sodium (Levothyroxine Sodium 125 Mcg Tablet) 125 mcg PO DAILYBB [facility] Stop: 07/05/24 06:29 Last Admin: 06/08/24 06:02 Dose: 125 mcg Lorazepam (Lorazepam 2 Mg/1 Ml Vial) 1 mg IV Q4H PRN PRN Reason: Anxiety/Agitation Stop: 07/08/24 13:52 Melatonin (Melatonin 3 Mg Tab) 9 mg PO HS [facility] Stop: 07/04/24 20:59 Last Admin: 06/05/24 00:11 Dose: Not Given Nystatin (Nystatin Powder 15gm Btl) 1 appln EXT HS [facility] Stop: 07/04/24 20:59 Last Admin: 06/07/24 20:27 Dose: 1 appln Ondansetron HCl (Ondansetron Inj 2 Mg/Ml 2 Ml Vial) 4 mg IV Q4H PRN PRN Reason: Nausea &/or Vomiting Stop: 07/08/24 13:52 Ondansetron HCl (Ondansetron 4 Mg Od Tab) 4 mg PO Q6H PRN PRN Reason: Nausea Stop: 07/08/24 14:06 Pregabalin (Pregabalin 100 Mg Cap) 100 mg PO BID [facility] Stop: 07/04/24 20:59 Last Admin: 06/05/24 00:12 Dose: Not Given ECG Additional Comments: No further labs or diagnostics in concert with comfort directed care. PG Care Time/CCT Total # of Minutes Spent Total Time Spent with Patient: Total time spent is greater than 50% in coordination of care (as documented) at patient's floor/unit and/or counseling patient: Advanced Care Planning 76305 Advanced Care Planning 30 Min C[place] [address] IN/OBS CONSULT LVL 3,45M Patient Type Established History Expanded Problem Focused Exam Expanded Problem Focused Medical Decision Making Moderate Complexity Diagnoses Palliative care by specialist Z51.5 Advance directive in chart Z78.9 Counseling regarding goals of care Z71.89 Comfort measures only status Z51.5 Need for comfort care Encounter for end of life education, guidance and counseling Additional Codes Advanced Care Planning - 10012 Advanced Care Planning 30 Min: 58344 Advanced Care Planning 30 Min ([id number])
[2024-06-08 20:47] LABS: Pneumococcal IgG Type 1 5.8; Pneumococcal IgG Type 12 (12F) 0.3; Pneumococcal IgG Type 14 5.5; Pneumococcal IgG Type 17 (17F) 13.2; Pneumococcal IgG Type 2 0.9; Pneumococcal IgG Type 22 (22F) 0.8; Pneumococcal IgG Type 23 (23F) 1.7; Pneumococcal IgG Type 26 (6B) 3.4; Pneumococcal IgG Type 3 5.8; Pneumococcal IgG Type 34 (10A) 2.9; Pneumococcal IgG Type 4 <0.3; Pneumococcal IgG Type 43 (11A) <0.3; Pneumococcal IgG Type 5 10.1; Pneumococcal IgG Type 51 (7F) 0.9; Pneumococcal IgG Type 54 (15B) 2.6; Pneumococcal IgG Type 56 (18C) 7.7; Pneumococcal IgG Type 57 (19A) 1.5; Pneumococcal IgG Type 68 (9V) 0.8; Pneumococcal IgG Type 8 0.4; Pneumococcal IgG Type 9 (9N) 2.4
[2024-06-09] MEDS ORDERED: SODIUM CHLORIDE 0.9% 1,000 ML IV PRN (07:00)
[2024-06-09] MEDS ORDERED: EPOETIN ALFA 4,000 UNIT/ML VIAL IV ONE (07:00)
--- NOTE | 2024-06-09 13:53 | Palliative Care Progress Note ---
Date of Service June 09, 2024 Assessment & Plan (1) Palliative care by specialist: Plan: Palliative care will continue to follow for ongoing EOL pt care and family support. (2) Comfort measures only status: Plan: transitioned to TUFT MACHINE OPERATOR on 06/08/2024, does not currently fit criteria for GIP at this time. (3) Need for comfort care: Plan: EOL Symptom manamgement: Pain/dyspnea/tachypnea dilaudid 0.5mg IVP PRN [id number] Consider titratable dilaudid drip if pt requires >3 PRN doses in under two consecutive hours. Nausea/vomitting zofran 4mg IVP q4h PRN Agitation ativan 0.5mg IVP q4h PRN Hyperactive delirium haldol 5mg IVP q6h PRN Secretions - if repositioning not effective robinul 0.4mg IV q4h PRN atropine SL 3 drops Q1h PRN Nursing care: Discontinue all medications not directed towards comfort. Detether pt from IV tubing, monitor cables, and check vitals once per shift. Please continue HFNC and titrate down as able for patient comfort. Use medications above PRN for dyspnea/tachypnea and do not increase oxygen once titrated down. Assess q1h for pain/dyspnea and treat accordingly. Plan as above Admission and Anticipated Discharge Date Admission Date: June 04, 2024 Subjective Assessed pt at bedside, she was transitioned to TUFT MACHINE OPERATOR on . Pt is sleeping quietly, did not attempt to awaken in concert with comfort directed care. She appears comfortable, skin warm/pale. Respiratory effort normal, rate 20/min. No visitors at bedside. Review of Systems Review of Systems: Unobtainable due to cognitive status Physical Exam Constitutional: + ill appearing and + morbidly obese Eyes: PERRL, conjunctivae normal, anicteric sclerae ENMT: external ear and nose normal, oropharynx normal Neck: trachea midline, no thyromegaly Respiratory: normal respiratory effort, lungs clear to auscultation Cardiovascular: RRR, no murmur, no edema Gastrointestinal (Abdomen): normal bowel sounds, soft, nontender, no hepatosplenomegaly Musculoskeletal: CALLAHAN, generalized weakness Skin: no rashes, warm and dry + pallor Neurologic: drowsy, oriented to person only, delayed speech, able to follow some simple commands Results & Data Vital Signs (Past 12 Hours) Vital Signs O2 Del Method 06/09/24 07:35 Room Air Laboratory Results No further labs or diagnostics in concert with comfort directed care. Diagnostic Findings No further labs or diagnostics in concert with comfort directed care. Medications Administered Current Inpatient Medications Acetaminophen (Acetaminophen 325 Mg Tab) 650 mg PO Q4H PRN PRN Reason: Moderate Pain (Scale 4, 5, 6) Stop: 07/04/24 14:13 Albuterol (Albut/Ipratrop 3mg/0.5mg Neb 3 Ml Vial) 3 ml INH Q4 PRN; Protocol PRN Reason: Wheezing Stop: 07/04/24 13:22 Atropine Sulfate (Atropine Sulfate 1% Op Soln 5 Ml Btl) 4 drops SL Q1H PRN PRN Reason: Secretions or pulm congestion Stop: 07/08/24 13:52 Carbidopa/Levodopa (Carbidopa/Levodopa 25/100mg Tab) 1 tab PO TIDM [facility] Stop: 07/04/24 13:29 Last Admin: 06/09/24 12:44 Dose: 1 tab Escitalopram Oxalate (Escitalopram Oxalate 10 Mg Tab) 10 mg PO QAM [facility] Stop: 07/05/24 08:59 Last Admin: 06/09/24 08:41 Dose: 10 mg Glycopyrrolate (Glycopyrrolate 0.2 Mg/Ml Vial) 0.4 mg IV Q4H PRN PRN Reason: Rattling Secretions or Pulm Congestion Stop: 07/08/24 13:52 Hydromorphone HCl (Hydromorphone Inj 0.5 Mg/0.5 Ml Syr) 0.5 mg IV Q15M PRN PRN Reason: Pain Stop: 06/23/24 09:32 Levothyroxine Sodium (Levothyroxine Sodium 125 Mcg Tablet) 125 mcg PO DAILYBB [facility] Stop: 07/05/24 06:29 Last Admin: 06/09/24 05:47 Dose: 125 mcg Lorazepam (Lorazepam 2 Mg/1 Ml Vial) 1 mg IV Q4H PRN PRN Reason: Anxiety/Agitation Stop: 07/08/24 13:52 Melatonin (Melatonin 3 Mg Tab) 9 mg PO HS [facility] Stop: 07/04/24 20:59 Last Admin: 06/05/24 00:11 Dose: Not Given Nystatin (Nystatin Powder 15gm Btl) 1 appln EXT HS [facility] Stop: 07/04/24 20:59 Last Admin: 06/08/24 20:10 Dose: 1 appln Ondansetron HCl (Ondansetron Inj 2 Mg/Ml 2 Ml Vial) 4 mg IV Q4H PRN PRN Reason: Nausea &/or Vomiting Stop: 07/08/24 13:52 Ondansetron HCl (Ondansetron 4 Mg Od Tab) 4 mg PO Q6H PRN PRN Reason: Nausea Stop: 07/08/24 14:06 Pregabalin (Pregabalin 100 Mg Cap) 100 mg PO BID [facility] Stop: 07/04/24 20:59 Last Admin: 06/05/24 00:12 Dose: Not Given PG Care Time/CCT Total # of Minutes Spent Total Time Spent with Patient: Total time spent is greater than 50% in coordination of care (as documented) at patient's floor/unit and/or counseling patient: Coding [place] [address] SUB INP/OBS CARE 2/35MIN Patient Type Established History Problem Focused Exam Problem Focused Medical Decision Making Low Complexity Diagnoses Palliative care by specialist Z51.5 Comfort measures only status Z51.5 Need for comfort care
[2024-06-09 15:12] VITALS: BP 123/62; TEMP 97.5
--- NOTE | 2024-06-09 15:32 | Hospitalist Progress Note ---
Date of Service June 09, 2024 Assessment & Plan (1) Encephalopathy: (2) ESRD (end stage renal disease) on dialysis: (3) Chronic diastolic heart failure: (4) Rheumatoid arthritis: (5) Morbid obesity: (6) COPD (chronic obstructive pulmonary disease): Plan Patient is a 78-year-old female with past medical history of ESRD on hemodialysis, Parkinson's disease, hypothyroidism with multiple recent hospitalization presented to the hospital with altered mental status. It was i ncreasingly getting difficult for patient to undergo hemodialysis due to low blood pressure. Patient also refused hemodialysis. Palliative care consultation was done and patient was started on comfort care measures on 06/08/2024 Continue on comfort care measures with Dilaudid, Ativan, Haldol and Zofran. No further lab work or imaging to be done Discussed with patient's at bedside who is in agreement with the plan. Please note the above document was generated using voice recognition software. It may contain grammatical, syntax or spelling errors. Any formal questions or concerns about the content, text or information contained within the body of this dictation should be directly addressed to the provider for clarification Admission and Anticipated Discharge Date Admission Date: June 04, 2024 Subjective Patient seen and examined at bedside. She is sleeping comfortably; not in distress Appears comfortable Family at bedside Review of Systems Review of Systems: All systems reviewed & are unremarkable except as noted in Subjective Physical Exam Physical Exam: Constitutional: Appears comfortable; not in distress. Respiratory: Bilateral vesicular breath sound. Cardiovascular: RRR, no murmur, no edema Vessels: no JVD or carotid bruit Chest: normal inspection of chest Abdomen: normal bowel sounds, soft, nontender, no hepatosplenomegaly Musculoskeletal: no cyanosis or clubbing, extremities motor strength 5/5 Skin: no rashes, warm and dry normal turgor Neurologic: PERRL, EOMI, accommodation nl, no face palsy. Results & Data Results & Data Vital Signs (Past 12 Hours) Vital Signs Temp Pulse Resp BP Pulse Ox O2 Del Method 06/09/24 15:11 36.4 C L 68 16 123/62 94 Room Air 06/09/24 07:35 Room Air (4) Rheumatoid arthritis Rheumatoid arthritis location: unspecified site Rheumatoid factor presence: unspecified presence Qualified Code(s): M06.9 - Rheumatoid arthritis, unspecified
[2024-06-09] MEDS: ACETAMINOPHEN 325 MG TAB PO PRN (19:28)
--- NOTE | 2024-06-10 12:53 | Hospitalist Progress Note ---
Date of Service June 10, 2024 Assessment & Plan (1) Encephalopathy: (2) ESRD (end stage renal disease) on dialysis: (3) Chronic diastolic heart failure: (4) Rheumatoid arthritis: (5) Morbid obesity: (6) COPD (chronic obstructive pulmonary disease): Plan Patient is a 78-year-old female with past medical history of ESRD on hemodialysis, Parkinson's disease, hypothyroidism with multiple recent hospitalization presented to the hospital with altered mental status. It was i ncreasingly getting difficult for patient to undergo hemodialysis due to low blood pressure. Patient also refused hemodialysis. Palliative care consultation was done and patient was started on comfort care measures on 06/08/2024 Continue on comfort care measures with Dilaudid, Ativan, Haldol and Zofran. No further lab work or imaging to be done Plan to increase GIP hospice if patient decompensates. Please note the above document was generated using voice recognition software. It may contain grammatical, syntax or spelling errors. Any formal questions or concerns about the content, text or information contained within the body of this dictation should be directly addressed to the provider for clarification Admission and Anticipated Discharge Date Admission Date: June 04, 2024 Subjective Patient seen and examined at bedside. She is comfortable; not in distress She is awake; denies any pain. Review of Systems Review of Systems: All systems reviewed & are unremarkable except as noted in Subjective Physical Exam Physical Exam: Constitutional: Appears comfortable; not in distress. Respiratory: Bilateral vesicular breath sound. Cardiovascular: RRR, no murmur, no edema Vessels: no JVD or carotid bruit Chest: normal inspection of chest Abdomen: normal bowel sounds, soft, nontender, no hepatosplenomegaly Musculoskeletal: no cyanosis or clubbing, extremities motor strength 5/5 Skin: no rashes, warm and dry normal turgor Neurologic: PERRL, EOMI, accommodation nl, no face palsy. Results & Data Results & Data Vital Signs (Past 12 Hours) Vital Signs Pulse Resp Pulse Ox O2 Del Method O2 Flow Rate 06/10/24 07:50 Room Air 06/10/24 04:11 71 20 90 2 (4) Rheumatoid arthritis Rheumatoid arthritis location: unspecified site Rheumatoid factor presence: unspecified presence Qualified Code(s): M06.9 - Rheumatoid arthritis, unspecified
--- NOTE | 2024-06-10 13:47 | Palliative Care Progress Note ---
Date of Service June 10, 2024 Assessment & Plan (1) Palliative care by specialist: Plan: Palliative care will continue to follow for ongoing EOL pt care and family support. (2) Comfort measures only status: Plan: transitioned to OCEAN CLAM BOAT CAPTAIN on 06/08/2024, does not currently fit criteria for GIP at this time. (3) Need for comfort care: Plan: EOL Symptom manamgement: Pain/dyspnea/tachypnea dilaudid 0.5mg IVP PRN [id number] Consider titratable dilaudid drip if pt requires >3 PRN doses in under two consecutive hours. Nausea/vomitting zofran 4mg IVP q4h PRN Agitation ativan 0.5mg IVP q4h PRN Hyperactive delirium haldol 5mg IVP q6h PRN Secretions - if repositioning not effective robinul 0.4mg IV q4h PRN atropine SL 3 drops Q1h PRN Nursing care: Discontinue all medications not directed towards comfort. Detether pt from IV tubing, monitor cables, and check vitals once per shift. Please continue HFNC and titrate down as able for patient comfort. Use medications above PRN for dyspnea/tachypnea and do not increase oxygen once titrated down. Assess q1h for pain/dyspnea and treat accordingly. Plan as above Admission and Anticipated Discharge Date Admission Date: June 04, 2024 Subjective Assessed pt at bedside, she was transitioned to OCEAN CLAM BOAT CAPTAIN on . Pt is awake and alert, getting bathed by nursing students. She appears comfortable, skin warm/pale. Respiratory effort normal, rate 20/min. No visitors at bedside. Review of Systems Review of Systems: All systems reviewed & are unremarkable except as noted in Subjective Physical Exam Constitutional: + ill appearing and + morbidly obese Eyes: PERRL, conjunctivae normal, anicteric sclerae ENMT: external ear and nose normal, oropharynx normal Neck: trachea midline, no thyromegaly Respiratory: normal respiratory effort, lungs clear to auscultation Cardiovascular: RRR, no murmur, no edema Gastrointestinal (Abdomen): normal bowel sounds, soft, nontender, no hepatosplenomegaly Musculoskeletal: CALLAHAN, generalized weakness Skin: no rashes, warm and dry + pallor Neurologic: drowsy, oriented to person only, delayed speech, able to follow some simple commands Results & Data Vital Signs (Past 12 Hours) Vital Signs Pulse Resp Pulse Ox O2 Del Method O2 Flow Rate 06/10/24 07:50 Room Air 06/10/24 04:11 71 20 90 2 Laboratory Results No further labs or diagnostics in concert with comfort directed care. Diagnostic Findings No further labs or diagnostics in concert with comfort directed care. Medications Administered Current Inpatient Medications Acetaminophen (Acetaminophen 325 Mg Tab) 650 mg PO Q4H PRN PRN Reason: Moderate Pain (Scale 4, 5, 6) Stop: 07/04/24 14:13 Last Admin: 06/09/24 19:28 Dose: 650 mg Albuterol (Albut/Ipratrop 3mg/0.5mg Neb 3 Ml Vial) 3 ml INH Q4 PRN; Protocol PRN Reason: Wheezing Stop: 07/04/24 13:22 Atropine Sulfate (Atropine Sulfate 1% Op Soln 5 Ml Btl) 4 drops SL Q1H PRN PRN Reason: Secretions or pulm congestion Stop: 07/08/24 13:52 Carbidopa/Levodopa (Carbidopa/Levodopa 25/100mg Tab) 1 tab PO TIDM [facility] Stop: 07/04/24 13:29 Last Admin: 06/10/24 08:56 Dose: 1 tab Escitalopram Oxalate (Escitalopram Oxalate 10 Mg Tab) 10 mg PO QAM [facility] Stop: 07/05/24 08:59 Last Admin: 06/10/24 08:56 Dose: 10 mg Glycopyrrolate (Glycopyrrolate 0.2 Mg/Ml Vial) 0.4 mg IV Q4H PRN PRN Reason: Rattling Secretions or Pulm Congestion Stop: 07/08/24 13:52 Hydromorphone HCl (Hydromorphone Inj 0.5 Mg/0.5 Ml Syr) 0.5 mg IV Q15M PRN PRN Reason: Pain Stop: 06/23/24 09:32 Levothyroxine Sodium (Levothyroxine Sodium 125 Mcg Tablet) 125 mcg PO DAILYBB [facility] Stop: 07/05/24 06:29 Last Admin: 06/10/24 06:06 Dose: Not Given Lorazepam (Lorazepam 2 Mg/1 Ml Vial) 1 mg IV Q4H PRN PRN Reason: Anxiety/Agitation Stop: 07/08/24 13:52 Melatonin (Melatonin 3 Mg Tab) 9 mg PO HS [facility] Stop: 07/04/24 20:59 Last Admin: 06/09/24 19:28 Dose: 9 mg Nystatin (Nystatin Powder 15gm Btl) 1 appln EXT [facility] Stop: 07/04/24 20:59 Last Admin: 06/09/24 19:32 Dose: 1 appln Ondansetron HCl (Ondansetron Inj 2 Mg/Ml 2 Ml Vial) 4 mg IV Q4H PRN PRN Reason: Nausea &/or Vomiting Stop: 07/08/24 13:52 Ondansetron HCl (Ondansetron 4 Mg Od Tab) 4 mg PO Q6H PRN PRN Reason: Nausea Stop: 07/08/24 14:06 Pregabalin (Pregabalin 100 Mg Cap) 100 mg PO BID [facility] Stop: 07/04/24 20:59 Last Admin: 06/05/24 00:12 Dose: Not Given PG Care Time/CCT Total # of Minutes Spent Total Time Spent with Patient: Total time spent is greater than 50% in coordination of care (as documented) at patient's floor/unit and/or counseling patient: C[place] [address] SUB INP/OBS CARE 04/10MIN Patient Type Established History Problem Focused Exam Problem Focused Medical Decision Making Low Complexity Diagnoses Palliative care by specialist Z51.5 Comfort measures only status Z51.5 Need for comfort care
[2024-06-10] MEDS: HYDROmorphone INJ 0.5 MG/0.5 ML SYR IV PRN (15:45)
[2024-06-11 03:19] VITALS: PULSE 83; RESP 19; O2SAT 92
--- NOTE | 2024-06-11 12:46 | Palliative Care Progress Note ---
Date of Service June 11, 2024 Assessment & Plan (1) Palliative care by specialist: Plan: Palliative care will continue to follow for ongoing EOL pt care and family support. (2) Comfort measures only status: Plan: transitioned to BAG ADJUSTER on 06/08/2024, has needed only occasional PRN medications for comfort and does not currently fit criteria for GIP at this time. (3) Need for comfort care: Plan: EOL Symptom manamgement: Pain/dyspnea/tachypnea dilaudid 0.5mg IVP PRN [id number] Consider titratable dilaudid drip if pt requires >3 PRN doses in under two consecutive hours. Nausea/vomitting zofran 4mg IVP q4h PRN Agitation ativan 0.5mg IVP q4h PRN Hyperactive delirium haldol 5mg IVP q6h PRN Secretions - if repositioning not effective robinul 0.4mg IV q4h PRN atropine SL 3 drops Q1h PRN Nursing care: Discontinue all medications not directed towards comfort. Detether pt from IV tubing, monitor cables, and check vitals once per shift. Please continue HFNC and titrate down as able for patient comfort. Use medications above PRN for dyspnea/tachypnea and do not increase oxygen once titrated down. Assess q1h for pain/dyspnea and treat accordingly. Plan as above Admission and Anticipated Discharge Date Admission Date: June 04, 2024 Subjective Assessed pt at bedside, She was transitioned to BAG ADJUSTER on . Pt is sleeping soundly and did not awaken to verbal and gentle tactile stimuli, did not attempt to aggressively awaken in concert with comfort directed care. She appears comfortable, skin warm/pale. Respiratory effort normal, rate 20/min. No visitors at bedside. Review of Systems Review of Systems: All systems reviewed & are unremarkable except as noted in Subjective Physical Exam Constitutional: + ill appearing and + morbidly obese Eyes: PERRL, conjunctivae normal, anicteric sclerae ENMT: external ear and nose normal, oropharynx normal Neck: trachea midline, no thyromegaly Respiratory: normal respiratory effort, lungs clear to auscultation Cardiovascular: RRR, no murmur, no edema Gastrointestinal (Abdomen): normal bowel sounds, soft, nontender, no hepatosplenomegaly Musculoskeletal: CALLAHAN, generalized weakness Skin: no rashes, warm and dry + pallor Neurologic: Pt is sleeping soundly and did not awaken to verbal and gentle tactile stimuli, did not attempt to aggressively awaken in concert with comfort directed care. Results & Data Vital Signs (Past 12 Hours) Vital Signs Pulse Resp Pulse Ox O2 Del Method O2 Flow Rate 06/11/24 08:30 Room Air, CPAP 06/11/24 03:18 83 19 92 2 Laboratory Results No further labs or diagnostics in concert with comfort directed care. Diagnostic Findings No further labs or diagnostics in concert with comfort directed care. Medications Administered Current Inpatient Medications Acetaminophen (Acetaminophen 325 Mg Tab) 650 mg PO Q4H PRN PRN Reason: Moderate Pain (Scale 4, 5, 6) Stop: 07/04/24 14:13 Last Admin: 06/09/24 19:28 Dose: 650 mg Albuterol (Albut/Ipratrop 3mg/0.5mg Neb 3 Ml Vial) 3 ml INH Q4 PRN; Protocol PRN Reason: Wheezing Stop: 07/04/24 13:22 Atropine Sulfate (Atropine Sulfate 1% Op Soln 5 Ml Btl) 4 drops SL Q1H PRN PRN Reason: Secretions or pulm congestion Stop: 07/08/24 13:52 Carbidopa/Levodopa (Carbidopa/Levodopa 25/100mg Tab) 1 tab PO TIDM [facility] Stop: 07/04/24 13:29 Last Admin: 06/11/24 11:56 Dose: Not Given Escitalopram Oxalate (Escitalopram Oxalate 10 Mg Tab) 10 mg PO QAM [facility] Stop: 07/05/24 08:59 Last Admin: 06/11/24 09:33 Dose: 10 mg Glycopyrrolate (Glycopyrrolate 0.2 Mg/Ml Vial) 0.4 mg IV Q4H PRN PRN Reason: Rattling Secretions or Pulm Congestion Stop: 07/08/24 13:52 Hydromorphone HCl (Hydromorphone Inj 0.5 Mg/0.5 Ml Syr) 0.5 mg IV Q15M PRN PRN Reason: Pain Stop: 06/23/24 09:32 Last Admin: 06/11/24 09:02 Dose: 0.5 mg Levothyroxine Sodium (Levothyroxine Sodium 125 Mcg Tablet) 125 mcg PO DAILYBB [facility] Stop: 07/05/24 06:29 Last Admin: 06/11/24 06:10 Dose: 125 mcg Lorazepam (Lorazepam 2 Mg/1 Ml Vial) 1 mg IV Q4H PRN PRN Reason: Anxiety/Agitation Stop: 07/08/24 13:52 Melatonin (Melatonin 3 Mg Tab) 9 mg PO HS [facility] Stop: 07/04/24 20:59 Last Admin: 06/10/24 20:43 Dose: 9 mg Nystatin (Nystatin Powder 15gm Btl) 1 appln EXT HS [facility] Stop: 07/04/24 20:59 Last Admin: 06/10/24 20:43 Dose: 1 appln Ondansetron HCl (Ondansetron Inj 2 Mg/Ml 2 Ml Vial) 4 mg IV Q4H PRN PRN Reason: Nausea &/or Vomiting Stop: 07/08/24 13:52 Ondansetron HCl (Ondansetron 4 Mg Od Tab) 4 mg PO Q6H PRN PRN Reason: Nausea Stop: 07/08/24 14:06 Pregabalin (Pregabalin 100 Mg Cap) 100 mg PO BID [facility] Stop: 07/04/24 20:59 Last Admin: 06/05/24 00:12 Dose: Not Given PG Care Time/CCT Total # of Minutes Spent Total Time Spent with Patient: Total time spent is greater than 50% in coordination of care (as documented) at patient's floor/unit and/or counseling patient: Coding [place] [address] SUB INP/OBS CARE 04/10MIN Patient Type Established History Problem Focused Exam Problem Focused Medical Decision Making Low Complexity Diagnoses Palliative care by specialist Z51.5 Comfort measures only status Z51.5 Need for comfort care
--- NOTE | 2024-06-11 15:04 | Hospitalist Progress Note ---
Date of Service June 11, 2024 Assessment & Plan (1) Encephalopathy: (2) ESRD (end stage renal disease) on dialysis: (3) Chronic diastolic heart failure: (4) Rheumatoid arthritis: (5) Morbid obesity: (6) COPD (chronic obstructive pulmonary disease): Plan Patient is a 78-year-old female with past medical history of ESRD on hemodialysis, Parkinson's disease, hypothyroidism with multiple recent hospitalization presented to the hospital with altered mental status. It was i ncreasingly getting difficult for patient to undergo hemodialysis due to low blood pressure. Patient also refused hemodialysis. Palliative care consultation was done and patient was started on comfort care measures on 06/08/2024 Continue on comfort care measures with Dilaudid, Ativan, Haldol and Zofran. No further lab work or imaging to be done Plan to increase GIP hospice if patient decompensates;Patient is requiring IV Dilaudid for comfort at this time infrequently Please note the above document was generated using voice recognition software. It may contain grammatical, syntax or spelling errors. Any formal questions or concerns about the content, text or information contained within the body of this dictation should be directly addressed to the provider for clarification Admission and Anticipated Discharge Date Admission Date: June 04, 2024 Subjective Patient seen and examined at bedside. She appears comfortable She denies any pain or discomfort No significant events overnight Review of Systems Review of Systems: All systems reviewed & are unremarkable except as noted in Subjective Physical Exam Physical Exam: Constitutional: Appears comfortable; not in distress. Respiratory: Bilateral vesicular breath sound. Cardiovascular: RRR, no murmur, no edema Vessels: no JVD or carotid bruit Chest: normal inspection of chest Abdomen: normal bowel sounds, soft, nontender, no hepatosplenomegaly Musculoskeletal: no cyanosis or clubbing, extremities motor strength 5/5 Skin: no rashes, warm and dry normal turgor Neurologic: PERRL, EOMI, accommodation nl, no face palsy. Results & Data Results & Data Vital Signs (Past 12 Hours) Vital Signs Pulse Resp Pulse Ox O2 Del Method O2 Flow Rate 06/11/24 08:30 Room Air, CPAP 06/11/24 03:18 83 19 92 2 (4) Rheumatoid arthritis Rheumatoid arthritis location: unspecified site Rheumatoid factor presence: unspecified presence Qualified Code(s): M06.9 - Rheumatoid arthritis, unspecified
--- NOTE | 2024-06-12 09:46 | Hospitalist Progress Note ---
Date of Service June 12, 2024 Assessment & Plan (1) Encephalopathy: (2) ESRD (end stage renal disease) on dialysis: (3) Chronic diastolic heart failure: (4) Rheumatoid arthritis: (5) Morbid obesity: (6) COPD (chronic obstructive pulmonary disease): Plan Patient is a 78-year-old female with past medical history of ESRD on hemodialysis, Parkinson's disease, hypothyroidism with multiple recent hospitalization presented to the hospital with altered mental status. It was i ncreasingly getting difficult for patient to undergo hemodialysis due to low blood pressure. Patient also refused hemodialysis. Palliative care consultation was done and patient was started on comfort care measures on 06/08/2024 Continue on comfort care measures with Dilaudid, Ativan, Haldol and Zofran. No further lab work or imaging to be done Plan to increase GIP hospice if patient decompensates;Patient is requiring IV Dilaudid for comfort at this time infrequently Please note the above document was generated using voice recognition software. It may contain grammatical, syntax or spelling errors. Any formal questions or concerns about the content, text or information contained within the body of this dictation should be directly addressed to the provider for clarification Admission and Anticipated Discharge Date Admission Date: June 04, 2024 Subjective Patient seen and examined at bedside. She appears comfortable She denies any pain or discomfort No significant events overnight Physical Exam Physical Exam: Constitutional: Appears comfortable; not in distress. Respiratory: Bilateral vesicular breath sound. Cardiovascular: RRR, no murmur, no edema Vessels: no JVD or carotid bruit Chest: normal inspection of chest Abdomen: normal bowel sounds, soft, nontender, no hepatosplenomegaly Musculoskeletal: no cyanosis or clubbing, extremities motor strength 5/5 Skin: no rashes, warm and dry normal turgor Neurologic: PERRL, EOMI, accommodation nl, no face palsy. Results & Data Results & Data Vital Signs (Past 12 Hours) Vital Signs O2 Del Method 06/12/24 08:30 Room Air (4) Rheumatoid arthritis Rheumatoid arthritis location: unspecified site Rheumatoid factor presence: unspecified presence Qualified Code(s): M06.9 - Rheumatoid arthritis, unspecified
--- NOTE | 2024-06-13 14:40 | Hospitalist Progress Note ---
Date of Service June 13, 2024 Assessment & Plan (1) Encephalopathy: (2) ESRD (end stage renal disease) on dialysis: (3) Chronic diastolic heart failure: (4) Rheumatoid arthritis: (5) Morbid obesity: (6) COPD (chronic obstructive pulmonary disease): Plan Patient is a 78-year-old female with past medical history of ESRD on hemodialysis, Parkinson's disease, hypothyroidism with multiple recent hospitalization presented to the hospital with altered mental status. It was i ncreasingly getting difficult for patient to undergo hemodialysis due to low blood pressure. Patient also refused hemodialysis. Palliative care consultation was done and patient was started on comfort care measures on 06/08/2024 Continue on comfort care measures with Dilaudid, Ativan, Haldol and Zofran. No further lab work or imaging to be done Plan to increase [facility] hospice if patient decompensates;Patient is requiring IV Dilaudid for comfort at this time infrequently Please note the above document was generated using voice recognition software. It may contain grammatical, syntax or spelling errors. Any formal questions or concerns about the content, text or information contained within the body of this dictation should be directly addressed to the provider for clarification Admission and Anticipated Discharge Date Admission Date: June 04, 2024 Subjective Patient seen and examined at bedside. She appears comfortable Review of Systems Review of Systems: Unobtainable due to cognitive status Physical Exam Physical Exam: Constitutional: Appears comfortable; not in distress. Respiratory: Bilateral vesicular breath sound. Cardiovascular: RRR, no murmur, no edema Vessels: no JVD or carotid bruit Chest: normal inspection of chest Abdomen: normal bowel sounds, soft, nontender, no hepatosplenomegaly Musculoskeletal: no cyanosis or clubbing, extremities motor strength 5/5 Skin: no rashes, warm and dry normal turgor Neurologic: PERRL, EOMI, accommodation nl, no face palsy. Results & Data Results & Data Vital Signs (Past 12 Hours) Vital Signs O2 Del Method 06/13/24 09:00 Room Air (4) Rheumatoid arthritis Rheumatoid arthritis location: unspecified site Rheumatoid factor presence: unspecified presence Qualified Code(s): M06.9 - Rheumatoid arthritis, unspecified
--- NOTE | 2024-06-14 10:05 | Hospitalist Progress Note ---
Date of Service June 14, 2024 Assessment & Plan (1) Encephalopathy: (2) ESRD (end stage renal disease) on dialysis: (3) Chronic diastolic heart failure: (4) Rheumatoid arthritis: (5) Morbid obesity: (6) COPD (chronic obstructive pulmonary disease): Plan Patient is a 78-year-old female with past medical history of ESRD on hemodialysis, Parkinson's disease, hypothyroidism with multiple recent hospitalization presented to the hospital with altered mental status. It was i ncreasingly getting difficult for patient to undergo hemodialysis due to low blood pressure. Patient also refused hemodialysis. Palliative care consultation was done and patient was started on comfort care measures on 06/08/2024 Continue on comfort care measures with Dilaudid, Ativan, Haldol and Zofran. No further lab work or imaging to be done Started on scheduled Dilaudid for pain control after discussion with her at bedside. Plan to increase [facility] hospice if patient decompensates; Please note the above document was generated using voice recognition software. It may contain grammatical, syntax or spelling errors. Any formal questions or concerns about the content, text or information contained within the body of this dictation should be directly addressed to the provider for clarification Admission and Anticipated Discharge Date Admission Date: June 04, 2024 Subjective Patient seen and examined at bedside. She appears comfortable Intermittent breakthrough pain noted Physical Exam Physical Exam: Constitutional: Appears comfortable; not in distress. Respiratory: Bilateral vesicular breath sound. Cardiovascular: RRR, no murmur, no edema Vessels: no JVD or carotid bruit Chest: normal inspection of chest Abdomen: normal bowel sounds, soft, nontender, no hepatosplenomegaly Musculoskeletal: no cyanosis or clubbing, extremities motor strength 5/5 Skin: no rashes, warm and dry normal turgor Neurologic: PERRL, EOMI, accommodation nl, no face palsy. Results & Data Results & Data Vital Signs (Past 12 Hours) Vital Signs O2 Del Method 06/14/24 08:50 Room Air (4) Rheumatoid arthritis Rheumatoid arthritis location: unspecified site Rheumatoid factor presence: unspecified presence Qualified Code(s): M06.9 - Rheumatoid arthritis, unspecified
[2024-06-14] MEDS: HYDROmorphone INJ 0.5 MG/0.5 ML SYR IV SCH (15:29)
--- NOTE | 2024-06-14 23:18 | Palliative Care Progress Note ---
Date of Service June 14, 2024 Assessment & Plan (1) Palliative care by specialist: Plan: Palliative care will continue to follow for ongoing EOL pt care and family support. (2) Comfort measures only status: Plan: transitioned to [facility] on 06/08/2024, has needed only occasional PRN medications for comfort and does not fit criteria for GIP at this time. (3) Need for comfort care: Plan: EOL Symptom manamgement: Pain/dyspnea/tachypnea dilaudid 0.5mg IVP PRN [id number] Consider titratable dilaudid drip if pt requires >3 PRN doses in under two consecutive hours. Nausea/vomitting zofran 4mg IVP q4h PRN Agitation ativan 0.5mg IVP q4h PRN Hyperactive delirium haldol 5mg IVP q6h PRN Secretions - if repositioning not effective robinul 0.4mg IV q4h PRN atropine SL 3 drops Q1h PRN Nursing care: Discontinue all medications not directed towards comfort. Detether pt from IV tubing, monitor cables, and check vitals once per shift. Please continue HFNC and titrate down as able for patient comfort. Use medications above PRN for dyspnea/tachypnea and do not increase oxygen once titrated down. Assess q1h for pain/dyspnea and treat accordingly. Plan as above Admission and Anticipated Discharge Date Admission Date: June 04, 2024 Subjective Assessed pt at bedside, She was transitioned to [facility] on . Pt is sleeping soundly and did not awaken to verbal and gentle tactile stimuli, did not attempt to aggressively awaken in concert with comfort directed care. She appears comfortable, skin warm/pale. Respiratory effort normal, rate 20/min. Spouse at bedside. Review of Systems Review of Systems: Unobtainable due to cognitive status Physical Exam Constitutional: + ill appearing and + morbidly obese Eyes: PERRL, conjunctivae normal, anicteric sclerae ENMT: external ear and nose normal, oropharynx normal Neck: trachea midline, no thyromegaly Respiratory: normal respiratory effort, lungs clear to auscultation Cardiovascular: RRR, no murmur, no edema Gastrointestinal (Abdomen): normal bowel sounds, soft, nontender, no hepatosplenomegaly Musculoskeletal: CALLAHAN, generalized weakness Skin: no rashes, warm and dry + pallor Neurologic: Pt is sleeping soundly and did not awaken to verbal and gentle tactile stimuli, did not attempt to aggressively awaken in concert with comfort directed care. Results & Data Vital Signs (Past 12 Hours) Vital Signs Temp 36.4 C L 06/09/24 15:11 Pulse 83 06/11/24 03:18 Resp 19 06/11/24 03:18 BP 123/62 06/09/24 15:11 Pulse Ox 92 06/11/24 03:18 O2 Del Method Room Air 06/14/24 08:50 O2 Flow Rate 2 06/11/24 03:18 Intake & Output 06/14/24 06/14/24 06/15/24 06:59 18:59 06:59 Weight 95 kg Laboratory Results No further labs or diagnostics in concert with comfort directed care. Diagnostic Findings No further labs or diagnostics in concert with comfort directed care. Medications Administered Current Inpatient Medications Acetaminophen (Acetaminophen 325 Mg Tab) 650 mg PO Q4H PRN PRN Reason: Moderate Pain (Scale 4, 5, 6) Stop: 07/04/24 14:13 Last Admin: 06/09/24 19:28 Dose: 650 mg Albuterol (Albut/Ipratrop 3mg/0.5mg Neb 3 Ml Vial) 3 ml INH Q4 PRN; Protocol PRN Reason: Wheezing Stop: 07/04/24 13:22 Atropine Sulfate (Atropine Sulfate 1% Op Soln 5 Ml Btl) 4 drops SL Q1H PRN PRN Reason: Secretions or pulm congestion Stop: 07/08/24 13:52 Carbidopa/Levodopa (Carbidopa/Levodopa 25/100mg Tab) 1 tab PO TIDM [facility] Stop: 07/04/24 13:29 Last Admin: 06/14/24 17:02 Dose: 1 tab Escitalopram Oxalate (Escitalopram Oxalate 10 Mg Tab) 10 mg PO QAM [facility] Stop: 07/05/24 08:59 Last Admin: 06/14/24 07:35 Dose: 10 mg Glycopyrrolate (Glycopyrrolate 0.2 Mg/Ml Vial) 0.4 mg IV Q4H PRN PRN Reason: Rattling Secretions or Pulm Congestion Stop: 07/08/24 13:52 Hydromorphone HCl (Hydromorphone Inj 0.5 Mg/0.5 Ml Syr) 0.5 mg IV Q15M PRN PRN Reason: Pain Stop: 06/23/24 09:32 Last Admin: 06/13/24 23:35 Dose: 0.5 mg Hydromorphone HCl (Hydromorphone Inj 0.5 Mg/0.5 Ml Syr) 0.5 mg IV Q6H [facility] Stop: 06/28/24 15:14 Last Admin: 06/14/24 22:00 Dose: 0.5 mg Levothyroxine Sodium (Levothyroxine Sodium 125 Mcg Tablet) 125 mcg PO DAILYBB [facility] Stop: 07/05/24 06:29 Last Admin: 06/14/24 06:19 Dose: 125 mcg Lorazepam (Lorazepam 2 Mg/1 Ml Vial) 1 mg IV Q4H PRN PRN Reason: Anxiety/Agitation Stop: 07/08/24 13:52 Melatonin (Melatonin 3 Mg Tab) 9 mg PO HS [facility] Stop: 07/04/24 20:59 Last Admin: 06/14/24 22:00 Dose: 9 mg Nystatin (Nystatin Powder 15gm Btl) 1 appln EXT HS [facility] Stop: 07/04/24 20:59 Last Admin: 06/14/24 22:01 Dose: 1 appln Ondansetron HCl (Ondansetron Inj 2 Mg/Ml 2 Ml Vial) 4 mg IV Q4H PRN PRN Reason: Nausea &/or Vomiting Stop: 07/08/24 13:52 Ondansetron HCl (Ondansetron 4 Mg Od Tab) 4 mg PO Q6H PRN PRN Reason: Nausea Stop: 07/08/24 14:06 Pregabalin (Pregabalin 100 Mg Cap) 100 mg PO BID [facility] Stop: 07/04/24 20:59 Last Admin: 06/05/24 00:12 Dose: Not Given PG Care Time/CCT Total # of Minutes Spent Total Time Spent with Patient: Total time spent is greater than 50% in coordination of care (as documented) at patient's floor/unit and/or counseling patient: Coding [place] [address] SUB INP/OBS CARE 2/35MIN Patient Type Established History Problem Focused Exam Problem Focused Medical Decision Making Low Complexity Diagnoses Palliative care by specialist Z51.5 Comfort measures only status Z51.5 Need for comfort care
--- NOTE | 2024-06-15 14:16 | Hospitalist Progress Note ---
Date of Service June 15, 2024 Assessment & Plan (1) Encephalopathy: (2) ESRD (end stage renal disease) on dialysis: (3) Chronic diastolic heart failure: (4) Rheumatoid arthritis: (5) Morbid obesity: (6) COPD (chronic obstructive pulmonary disease): Plan Patient is a 78-year-old female with past medical history of ESRD on hemodialysis, Parkinson's disease, hypothyroidism with multiple recent hospitalization presented to the hospital with altered mental status. It was in creasingly getting difficult for patient to undergo hemodialysis due to low blood pressure. Patient also refused hemodialysis. Palliative care consultation was done and patient was started on comfort care measures on 06/08/2024 Continue on comfort care measures with Dilaudid, Ativan, Haldol and Zofran. No further lab work or imaging to be done Started on scheduled Dilaudid for pain control after discussion with her at bedside. Plan to increase [facility]IP hospice if patient decompensates; Please note the above document was generated using voice recognition software. It may contain grammatical, syntax or spelling errors. Any formal questions or concerns about the content, text or information contained within the body of this dictation should be directly addressed to the provider for clarification Admission and Anticipated Discharge Date Admission Date: June 04, 2024 Subjective Patient seen and examined at bedside. She is comfortable; not in distress She awakes with verbal stimuli No significant events overnight Review of Systems Review of Systems: All systems reviewed & are unremarkable except as noted in Subjective Physical Exam Physical Exam: Constitutional: Appears comfortable; not in distress. Respiratory: Bilateral vesicular breath sound. Cardiovascular: RRR, no murmur, no edema Vessels: no JVD or carotid bruit Chest: normal inspection of chest Abdomen: normal bowel sounds, soft, nontender, no hepatosplenomegaly Musculoskeletal: no cyanosis or clubbing, extremities motor strength 5/5 Skin: no rashes, warm and dry normal turgor Neurologic: PERRL, EOMI, accommodation nl, no face palsy. Results & Data Results & Data Vital Signs (Past 12 Hours) Vital Signs O2 Del Method 06/15/24 08:20 Room Air (4) Rheumatoid arthritis Rheumatoid arthritis location: unspecified site Rheumatoid factor presence: unspecified presence Qualified Code(s): M06.9 - Rheumatoid arthritis, unspecified
[2024-06-16] MEDS: LORazepam 2 MG/1 ML VIAL IV PRN (00:45)
--- NOTE | 2024-06-16 17:08 | Hospitalist Progress Note ---
Date of Service June 16, 2024 Assessment & Plan (1) Encephalopathy: (2) ESRD (end stage renal disease) on dialysis: (3) Chronic diastolic heart failure: (4) Rheumatoid arthritis: (5) Morbid obesity: (6) COPD (chronic obstructive pulmonary disease): Plan Patient is a 78-year-old female with past medical history of ESRD on hemodialysis, Parkinson's disease, hypothyroidism with multiple recent hospitalization presented to the hospital with altered mental status. It was in creasingly getting difficult for patient to undergo hemodialysis due to low blood pressure. Patient also refused hemodialysis. Palliative care consultation was done and patient was started on comfort care measures on 06/08/2024 Continue on comfort care measures with Dilaudid, Ativan, Haldol and Zofran. No further lab work or imaging to be done c/w scheduled Dilaudid for pain control Plan to increase GIP hospice if patient decompensates; Please note the above document was generated using voice recognition software. It may contain grammatical, syntax or spelling errors. Any formal questions or concerns about the content, text or information contained within the body of this dictation should be directly addressed to the provider for clarification Admission and Anticipated Discharge Date Admission Date: June 04, 2024 Subjective Patient seen and examined at bedside. She is comfortable; not in distress She awakes with verbal stimuli No significant events overnight Physical Exam Physical Exam: Constitutional: Appears comfortable; not in distress. Respiratory: Bilateral vesicular breath sound. Cardiovascular: RRR, no murmur, no edema Vessels: no JVD or carotid bruit Chest: normal inspection of chest Abdomen: normal bowel sounds, soft, nontender, no hepatosplenomegaly Musculoskeletal: no cyanosis or clubbing, extremities motor strength 5/5 Skin: no rashes, warm and dry normal turgor Neurologic: PERRL, EOMI, accommodation nl, no face palsy. Results & Data Results & Data Vital Signs (Past 12 Hours) Vital Signs O2 Del Method 06/16/24 09:35 Room Air (4) Rheumatoid arthritis Rheumatoid arthritis location: unspecified site Rheumatoid factor presence: unspecified presence Qualified Code(s): M06.9 - Rheumatoid arthritis, unspecified
--- NOTE | 2024-06-17 15:15 | Hospitalist Progress Note ---
Date of Service June 17, 2024 Assessment & Plan (1) Encephalopathy: (2) ESRD (end stage renal disease) on dialysis: (3) Chronic diastolic heart failure: (4) Rheumatoid arthritis: (5) Morbid obesity: (6) COPD (chronic obstructive pulmonary disease): Plan Patient is a 78-year-old female with past medical history of ESRD on hemodialysis, Parkinson's disease, hypothyroidism with multiple recent hospitalization presented to the hospital with altered mental status. It was in creasingly getting difficult for patient to undergo hemodialysis due to low blood pressure. Patient also refused hemodialysis. Palliative care consultation was done and patient was started on comfort care measures on 06/08/2024 Continue on comfort care measures with Dilaudid, Ativan, Haldol and Zofran. No further lab work or imaging to be done c/w scheduled Dilaudid for pain control Plan to increase [facility] hospice if patient decompensates while awaiting dc to facility w/ hospice. CM assisting w/ dc plan to facility w/ hospice. Please note the above document was generated using voice recognition software. It may contain grammatical, syntax or spelling errors. Any formal questions or concerns about the content, text or information contained within the body of this dictation should be directly addressed to the provider for clarification Admission and Anticipated Discharge Date Admission Date: June 04, 2024 Subjective Patient seen and examined at bedside. She is comfortable; not in distress She awakes with verbal stimuli No significant events overnight Physical Exam Physical Exam: Constitutional: Appears comfortable; not in distress. Respiratory: Bilateral crackles Cardiovascular: RRR, no murmur, no ble edema Abdomen: distended, soft, non tender. Musculoskeletal: no cyanosis or clubbing, extremities motor strength 5/5 Skin: no rashes, warm and dry normal turgor Neurologic: no face palsy. Results & Data Results & Data Vital Signs (Past 12 Hours) Vital Signs O2 Del Method 06/17/24 08:10 Room Air (4) Rheumatoid arthritis Rheumatoid arthritis location: unspecified site Rheumatoid factor presence: unspecified presence Qualified Code(s): M06.9 - Rheumatoid arthritis, unspecified
--- NOTE | 2024-06-18 15:19 | Hospitalist Progress Note ---
Date of Service June 18, 2024 Assessment & Plan (1) Encephalopathy: (2) ESRD (end stage renal disease) on dialysis: (3) Chronic diastolic heart failure: (4) Rheumatoid arthritis: (5) Morbid obesity: (6) COPD (chronic obstructive pulmonary disease): Plan Patient is a 78-year-old female with past medical history of ESRD on hemodialysis, Parkinson's disease, hypothyroidism with multiple recent hospitalization presented to the hospital with altered mental status. It was in creasingly getting difficult for patient to undergo hemodialysis due to low blood pressure. Patient also refused hemodialysis. Palliative care consultation was done and patient was started on comfort care measures on 06/08/2024 Continue on comfort care measures with Dilaudid, Ativan, Haldol and Zofran. No further lab work or imaging to be done c/w scheduled Dilaudid for pain control Plan to increase [facility] hospice if patient decompensates while awaiting dc to facility w/ hospice. CM assisting w/ dc plan to facility w/ hospice. Please note the above document was generated using voice recognition software. It may contain grammatical, syntax or spelling errors. Any formal questions or concerns about the content, text or information contained within the body of this dictation should be directly addressed to the provider for clarification Admission and Anticipated Discharge Date Admission Date: June 04, 2024 Subjective Patient seen and examined at bedside. She is comfortable; not in distress She awakes with verbal stimuli No significant events overnight Physical Exam Physical Exam: Constitutional: Appears comfortable; not in distress. Respiratory: Bilateral crackles Cardiovascular: RRR, no murmur, no ble edema Abdomen: distended, soft, non tender. Musculoskeletal: no cyanosis or clubbing, extremities motor strength 5/5 Skin: no rashes, warm and dry normal turgor Neurologic: no face palsy. Results & Data Results & Data Vital Signs (Past 12 Hours) Vital Signs O2 Del Method 06/18/24 07:54 Room Air (4) Rheumatoid arthritis Rheumatoid arthritis location: unspecified site Rheumatoid factor presence: unspecified presence Qualified Code(s): M06.9 - Rheumatoid arthritis, unspecified
--- NOTE | 2024-06-19 15:47 | Hospitalist Progress Note ---
Date of Service June 19, 2024 Assessment & Plan (1) Encephalopathy: (2) ESRD (end stage renal disease) on dialysis: (3) Chronic diastolic heart failure: (4) Rheumatoid arthritis: (5) Morbid obesity: (6) COPD (chronic obstructive pulmonary disease): Plan Patient is a 78-year-old female with past medical history of ESRD on hemodialysis, Parkinson's disease, hypothyroidism with multiple recent hospitalization presented to the hospital with altered mental status. It was in creasingly getting difficult for patient to undergo hemodialysis due to low blood pressure. Patient also refused hemodialysis. Palliative care consultation was done and patient was started on comfort care measures on 06/08/2024 Continue on comfort care measures with Dilaudid, Ativan, Haldol and Zofran. No further lab work or imaging to be done c/w scheduled Dilaudid for pain control Plan to increase [facility] hospice if patient decompensates while awaiting dc to facility w/ hospice. CM assisting w/ dc plan to facility w/ hospice. Please note the above document was generated using voice recognition software. It may contain grammatical, syntax or spelling errors. Any formal questions or concerns about the content, text or information contained within the body of this dictation should be directly addressed to the provider for clarification Admission and Anticipated Discharge Date Admission Date: June 04, 2024 Subjective Patient seen and examined at bedside. She is comfortable; not in distress She awakes with verbal stimuli, appears more lethargic today. No significant events overnight Physical Exam Physical Exam: Constitutional: Appears comfortable; not in distress. Respiratory: Bilateral crackles Cardiovascular: RRR, no murmur, no ble edema Abdomen: distended, soft, non tender. Musculoskeletal: no cyanosis or clubbing, extremities motor strength 5/5 Skin: no rashes, warm and dry normal turgor Neurologic: no face palsy. Results & Data Results & Data Vital Signs (Past 12 Hours) Vital Signs O2 Del Method 06/19/24 07:22 Room Air (4) Rheumatoid arthritis Rheumatoid arthritis location: unspecified site Rheumatoid factor presence: unspecified presence Qualified Code(s): M06.9 - Rheumatoid arthritis, unspecified
--- NOTE | 2024-06-20 14:15 | Hospitalist Progress Note ---
Date of Service June 20, 2024 Assessment & Plan (1) Encephalopathy: (2) ESRD (end stage renal disease) on dialysis: (3) Chronic diastolic heart failure: (4) Rheumatoid arthritis: (5) Morbid obesity: (6) COPD (chronic obstructive pulmonary disease): Plan Patient is a 78-year-old female with past medical history of ESRD on hemodialysis, Parkinson's disease, hypothyroidism with multiple recent hospitalization presented to the hospital with altered mental status. It was in creasingly getting difficult for patient to undergo hemodialysis due to low blood pressure. Patient also refused hemodialysis. Palliative care consultation was done and patient was started on comfort care measures on 06/08/2024 Continue on comfort care measures with Dilaudid, Ativan, Haldol and Zofran. No further lab work or imaging to be done c/w scheduled Dilaudid for pain control Plan to increase [facility] hosp[facility] if patient decompensates while awaiting dc to facility w/ hospice. CM assisting w/ dc plan to facility w/ hospice. Please note the above document was generated using voice recognition software. It may contain grammatical, syntax or spelling errors. Any formal questions or concerns about the content, text or information contained within the body of this dictation should be directly addressed to the provider for clarification Admission and Anticipated Discharge Date Admission Date: June 04, 2024 Subjective Patient seen and examined at bedside. She is comfortable; not in distress She awakes with verbal stimuli, lethargic appearance. No significant events overnight Physical Exam Physical Exam: Constitutional: Appears comfortable; not in distress. Respiratory: Bilateral crackles Cardiovascular: RRR, no murmur, no ble edema Abdomen: distended, soft, non tender. Musculoskeletal: no cyanosis or clubbing, extremities motor strength 5/5 Skin: no rashes, warm and dry normal turgor Neurologic: no face palsy. Results & Data Results & Data Vital Signs (Past 12 Hours) Vital Signs O2 Del Method 06/20/24 08:11 Room Air (4) Rheumatoid arthritis Rheumatoid arthritis location: unspecified site Rheumatoid factor presence: unspecified presence Qualified Code(s): M06.9 - Rheumatoid arthritis, unspecified
--- NOTE | 2024-06-21 16:13 | Hospitalist Progress Note ---
Date of Service June 21, 2024 Assessment & Plan (1) Encephalopathy: (2) ESRD (end stage renal disease) on dialysis: (3) Chronic diastolic heart failure: (4) Rheumatoid arthritis: (5) Morbid obesity: (6) COPD (chronic obstructive pulmonary disease): Plan Patient is a 78-year-old female with past medical history of ESRD on hemodialysis, Parkinson's disease, hypothyroidism with multiple recent hospitalization presented to the hospital with altered mental status. It was in creasingly getting difficult for patient to undergo hemodialysis due to low blood pressure. Patient also refused hemodialysis. Palliative care consultation was done and patient was started on comfort care measures on 06/08/2024 Continue on comfort care measures with Dilaudid, Ativan, Haldol and Zofran. No further lab work or imaging to be done c/w scheduled Dilaudid for pain control Plan to involve [facility] if patient decompensates while awaiting dc to facility w/ hospice. CM assisting w/ dc plan to facility w/ hospice. Please note the above document was generated using voice recognition software. It may contain grammatical, syntax or spelling errors. Any formal questions or concerns about the content, text or information contained within the body of this dictation should be directly addressed to the provider for clarification Admission and Anticipated Discharge Date Admission Date: June 04, 2024 Subjective Patient seen and examined at bedside. She is comfortable; not in distress She didn't wake up with verbal stimuli, deep and fast breathing noted. No significant events overnight Physical Exam Physical Exam: Constitutional: Appears comfortable; not in distress. Respiratory: Bilateral crackles Cardiovascular: RRR, no murmur, no ble edema Abdomen: distended, soft, non tender. Musculoskeletal: no cyanosis or clubbing, extremities motor strength 5/5 Skin: no rashes, warm and dry normal turgor Neurologic: no face palsy. Results & Data Results & Data Vital Signs (Past 12 Hours) Vital Signs O2 Del Method 06/21/24 09:38 Room Air (4) Rheumatoid arthritis Rheumatoid arthritis location: unspecified site Rheumatoid factor presence: unspecified presence Qualified Code(s): M06.9 - Rheumatoid arthritis, unspecified
--- NOTE | 2024-06-22 01:10 | Palliative Care Progress Note ---
Date of Service June 21, 2024 Assessment & Plan (1) Palliative care by specialist: Plan: Palliative care will continue to follow for ongoing EOL pt care and family support. Spouse at bedside, he remains hyperfocused on possibility of pt discharging to SNF, stating "You need to know I am going to do everything in my power to be sure she stays in the hospital until she dies". Again reinforced with spouse that the pt it stable, with minimal PRN medication use and barajas snot currently fit the ctiteria for [facility] hospice. Encouraged spouse to work with CM for discharge planning. Anticipatory guidance offered. Discussed changes pt may move through in the dying process including but not limited to sleeping more, disorientation when awake, restlessness, diminished senses/inability to respond to stimulus although ability to be aware of them remains intact longer, and changes in body temperatures, skin changes/mottling/cyanosis, respiratory pattern changes, and oral secretions. Family verbalized understanding. The goal is to assure a peaceful . (2) Comfort measures only status: Plan: transitioned to [facility] [employer] on 06/08/2024, has needed only occasional PRN medications for comfort and does not fit criteria for [facility] at this time. (3) Need for comfort care: Plan: EOL Symptom manamgement: Pain/dyspnea/tachypnea dilaudid 0.5mg IVP PRN [id number] Consider titratable dilaudid drip if pt requires >3 PRN doses in under two consecutive hours. Nausea/vomitting zofran 4mg IVP q4h PRN Agitation ativan 0.5mg IVP q4h PRN Hyperactive delirium haldol 5mg IVP q6h PRN Secretions - if repositioning not effective robinul 0.4mg IV q4h PRN atropine SL 3 drops Q1h PRN Nursing care: Discontinue all medications not directed towards comfort. Detether pt from IV tubing, monitor cables, and check vitals once per shift. Please continue HFNC and titrate down as able for patient comfort. Use medications above PRN for dyspnea/tachypnea and do not increase oxygen once titrated down. Assess q1h for pain/dyspnea and treat accordingly. Plan as above Admission and Anticipated Discharge Date Admission Date: June 04, 2024 Subjective Assessed pt at bedside, She was transitioned to [facility] [employer] on . Pt awake and alert and pleasantly confused. She appears comfortable, skin warm/pale. Respiratory effort normal, rate 20/min. Spouse at bedside. Review of Systems Review of Systems: All systems reviewed & are unremarkable except as noted in Subjective Physical Exam Constitutional: + ill appearing and + morbidly obese Eyes: PERRL, conjunctivae normal, anicteric sclerae ENMT: external ear and nose normal, oropharynx normal Neck: trachea midline, no thyromegaly Respiratory: normal respiratory effort, lungs clear to auscultation Cardiovascular: RRR, no murmur, no edema Gastrointestinal (Abdomen): normal bowel sounds, soft, nontender, no hepatosplenomegaly Musculoskeletal: CALLAHAN, generalized weakness Skin: no rashes, warm and dry + pallor Neurologic: Pt is sleeping soundly and did not awaken to verbal and gentle tactile stimuli, did not attempt to aggressively awaken in concert with comfort directed care. Results & Data Vital Signs (Past 12 Hours) Vital Signs Temp 36.4 C L 06/09/24 15:11 Pulse 83 06/11/24 03:18 Resp 19 06/11/24 03:18 BP 123/62 06/09/24 15:11 Pulse Ox 92 06/11/24 03:18 O2 Del Method Room Air 06/21/24 09:38 O2 Flow Rate 2 06/11/24 03:18 Intake & Output 06/21/24 06/21/24 06/22/24 06:59 18:59 06:59 Other: Other Intake Source MOUTH CARE # Unmeasured Voids 1 Laboratory Results No further labs or diagnostics in concert with comfort directed care. Diagnostic Findings No further labs or diagnostics in concert with comfort directed care. Medications Administered Current Inpatient Medications Acetaminophen (Acetaminophen 325 Mg Tab) 650 mg PO Q4H PRN PRN Reason: Moderate Pain (Scale 4, 5, 6) Stop: 07/04/24 14:13 Last Admin: 06/09/24 19:28 Dose: 650 mg Albuterol (Albut/Ipratrop 3mg/0.5mg Neb 3 Ml Vial) 3 ml INH Q4 PRN; Protocol PRN Reason: Wheezing Stop: 07/04/24 13:22 Atropine Sulfate (Atropine Sulfate 1% Op Soln 5 Ml Btl) 4 drops SL Q1H PRN PRN Reason: Secretions or pulm congestion Stop: 07/08/24 13:52 Glycopyrrolate (Glycopyrrolate 0.2 Mg/Ml Vial) 0.4 mg IV Q4H PRN PRN Reason: Rattling Secretions or Pulm Congestion Stop: 07/08/24 13:52 Hydromorphone HCl (Hydromorphone Inj 0.5 Mg/0.5 Ml Syr) 0.5 mg IV Q15M PRN PRN Reason: Pain Stop: 06/23/24 09:32 Last Admin: 06/21/24 13:39 Dose: 0.5 mg Hydromorphone HCl (Hydromorphone Inj 0.5 Mg/0.5 Ml Syr) 0.5 mg IV Q6H BAYRON Stop: 06/28/24 15:14 Last Admin: 06/21/24 21:59 Dose: 0.5 mg Lorazepam (Lorazepam 2 Mg/1 Ml Vial) 1 mg IV Q4H PRN PRN Reason: Anxiety/Agitation Stop: 07/08/24 13:52 Last Admin: 06/16/24 00:45 Dose: 1 mg Nystatin (Nystatin Powder 15gm Btl) 1 appln EXT HS BAYRON Stop: 07/04/24 20:59 Last Admin: 06/21/24 22:01 Dose: 1 appln Ondansetron HCl (Ondansetron Inj 2 Mg/Ml 2 Ml Vial) 4 mg IV Q4H PRN PRN Reason: Nausea &/or Vomiting Stop: 07/08/24 13:52 Ondansetron HCl (Ondansetron 4 Mg Od Tab) 4 mg PO Q6H PRN PRN Reason: Nausea Stop: 07/08/24 14:06 Pregabalin (Pregabalin 100 Mg Cap) 100 mg PO BID BAYRON Stop: 07/04/24 20:59 Last Admin: 06/05/24 00:12 Dose: Not Given PG Care Time/CCT Total # of Minutes Spent Total Time Spent with Patient: Total time spent is greater than 50% in coordination of care (as documented) at patient's floor/unit and/or counseling patient: [place] [address] SUB INP/OBS CARE 2/35MIN Patient Type Established History Problem Focused Exam Problem Focused Medical Decision Making Low Complexity Diagnoses Palliative care by specialist Z51.5 Comfort measures only status Z51.5 Need for comfort care
--- NOTE | 2024-06-22 15:09 | Hospitalist Progress Note ---
Date of Service June 22, 2024 Assessment & Plan (1) Encephalopathy: (2) ESRD (end stage renal disease) on dialysis: (3) Chronic diastolic heart failure: (4) Rheumatoid arthritis: (5) Morbid obesity: (6) COPD (chronic obstructive pulmonary disease): Plan Patient is a 78-year-old female with past medical history of ESRD on hemodialysis, Parkinson's disease, hypothyroidism with multiple recent hospitalization presented to the hospital with altered mental status. It was in creasingly getting difficult for patient to undergo hemodialysis due to low blood pressure. Patient also refused hemodialysis. Palliative care consultation was done and patient was started on comfort care measures on 06/08/2024 Continue on comfort care measures with Dilaudid, Ativan, Haldol and Zofran. No further lab work or imaging to be done c/w scheduled Dilaudid for pain control Plan to involve [facility] if patient decompensates while awaiting dc to facility w/ hospice. CM assisting w/ dc plan to facility w/ hospice. Please note the above document was generated using voice recognition software. It may contain grammatical, syntax or spelling errors. Any formal questions or concerns about the content, text or information contained within the body of this dictation should be directly addressed to the provider for clarification Admission and Anticipated Discharge Date Admission Date: June 04, 2024 Subjective Patient seen and examined at bedside. She is comfortable; not in distress She opens eyes with verbal stimuli. No significant events overnight Physical Exam Physical Exam: Constitutional: Appears comfortable; not in distress. Respiratory: Bilateral crackles Cardiovascular: RRR, no murmur, no ble edema Abdomen: distended, soft, non tender. Musculoskeletal: no cyanosis or clubbing, extremities motor strength 5/5 Skin: no rashes, warm and dry normal turgor Neurologic: no face palsy. (4) Rheumatoid arthritis Rheumatoid arthritis location: unspecified site Rheumatoid factor presence: unspecified presence Qualified Code(s): M06.9 - Rheumatoid arthritis, unspecified
--- NOTE | 2024-06-23 11:37 | Hospitalist Progress Note ---
Date of Service June 23, 2024 Assessment & Plan (1) Encephalopathy: (2) ESRD (end stage renal disease) on dialysis: (3) Chronic diastolic heart failure: (4) Rheumatoid arthritis: (5) Morbid obesity: (6) COPD (chronic obstructive pulmonary disease): Plan Patient is a 78-year-old female with past medical history of ESRD on hemodialysis, Parkinson's disease, hypothyroidism with multiple recent hospitalization presented to the hospital with altered mental status. It was in creasingly getting difficult for patient to undergo hemodialysis due to low blood pressure. Patient also refused hemodialysis. Palliative care consultation was done and patient was started on comfort care measures on 06/08/2024 Continue on comfort care measures with Dilaudid, Ativan, Haldol and Zofran. No further lab work or imaging to be done c/w scheduled Dilaudid for pain control reported he does not want her to go back to the facility she came from He is working with CM on a different facility I spent a total of 40 minutes coordinating, documenting and providing care for this patient excluding time spent in performance of separately billed services Admission and Anticipated Discharge Date Admission Date: June 04, 2024 Subjective Patient seen and examined Currently sleeping and difficult to arouse at bedside Review of Systems Review of Systems: Unobtainable due to reduced consciousness Physical Exam Constitutional: Drowsy and not in distress Respiratory: On room air, diminished brath sounds Cardiovascular: Rate/Rhythm: regular rate and regular rhythm Gastrointestinal (Abdomen): normal bowel sounds, soft, nontender, no hepatosplenomegaly Neurologic: Drowsy and difficult to arouse (4) Rheumatoid arthritis Rheumatoid arthritis location: unspecified site Rheumatoid factor presence: unspecified presence Qualified Code(s): M06.9 - Rheumatoid arthritis, unspecified
--- NOTE | 2024-06-24 12:37 | Hospitalist Progress Note ---
Date of Service June 24, 2024 Assessment & Plan (1) Encephalopathy: (2) ESRD (end stage renal disease) on dialysis: (3) Chronic diastolic heart failure: (4) Rheumatoid arthritis: (5) Morbid obesity: (6) COPD (chronic obstructive pulmonary disease): Plan Patient is a 78-year-old female with past medical history of ESRD on hemodialysis, Parkinson's disease, hypothyroidism with multiple recent hospitalization presented to the hospital with altered mental status. It was i ncreasingly getting difficult for patient to undergo hemodialysis due to low blood pressure. Patient also refused hemodialysis. Palliative care consultation was done and patient was started on comfort care measures on 06/08/2024 Continue on comfort care measures with Dilaudid, Ativan, Haldol and Zofran. No further lab work or imaging to be done c/w scheduled Dilaudid for pain control CM working with on facility hospice I spent a total of 30 minutes coordinating, documenting and providing care for this patient excluding time spent in performance of separately billed services Admission and Anticipated Discharge Date Admission Date: June 04, 2024 Subjective Patient seen and examined at bedside and reports patient has been increasingly drowsy and reduced oral intake Review of Systems Review of Systems: Unobtainable due to reduced consciousness Physical Exam Constitutional: no acute distress Drowsy Respiratory: On room air, diminished breath sounds Cardiovascular: Rate/Rhythm: regular rate and regular rhythm Gastrointestinal (Abdomen): normal bowel sounds, soft, nontender, no hepatosplenomegaly Musculoskeletal: No pedal edema Neurologic: Drowsy. Opened eye to touch and fell back asleep Results & Data Results & Data Vital Signs (Past 12 Hours) Vital Signs O2 Del Method 06/24/24 09:02 Room Air (4) Rheumatoid arthritis Rheumatoid arthritis location: unspecified site Rheumatoid factor presence: unspecified presence Qualified Code(s): M06.9 - Rheumatoid arthritis, unspecified
--- NOTE | 2024-06-25 10:33 | Hospitalist Progress Note ---
Date of Service June 25, 2024 Assessment & Plan (1) Encephalopathy: (2) ESRD (end stage renal disease) on dialysis: (3) Chronic diastolic heart failure: (4) Rheumatoid arthritis: (5) Morbid obesity: (6) COPD (chronic obstructive pulmonary disease): Plan Patient is a 78-year-old female with past medical history of ESRD on hemodialysis, Parkinson's disease, hypothyroidism with multiple recent hospitalization presented to the hospital with altered mental status. It was i ncreasingly getting difficult for patient to undergo hemodialysis due to low blood pressure. Patient also refused hemodialysis. Palliative care consultation was done and patient was started on comfort care measures on 06/08/2024 Continue on comfort care measures with Dilaudid, Ativan, Haldol and Zofran. No further lab work or imaging to be done c/w scheduled Dilaudid for pain control CM working with on facility hospice I spent a total of 30 minutes coordinating, documenting and providing care for this patient excluding time spent in performance of separately billed services Admission and Anticipated Discharge Date Admission Date: June 04, 2024 Subjective Patient seen and examined at bedside Opens eye to touch but does not respond to questions Physical Exam Constitutional: no acute distress Eyes: Conjunctiva normal, anicteric sclera Respiratory: Not in respiratory distress. Diminished breath sounds Cardiovascular: Rate/Rhythm: regular rate and regular rhythm Gastrointestinal (Abdomen): normal bowel sounds, soft, nontender, no hepatosplenomegaly Musculoskeletal: No pedal edema Neurologic: Opens eye to touch but otherwise not responding to questions Results & Data Results & Data Vital Signs (Past 12 Hours) Vital Signs O2 Del Method 06/25/24 09:15 Room Air (4) Rheumatoid arthritis Rheumatoid arthritis location: unspecified site Rheumatoid factor presence: unspecified presence Qualified Code(s): M06.9 - Rheumatoid arthritis, unspecified
--- NOTE | 2024-06-26 10:26 | Hospitalist Progress Note ---
Date of Service June 26, 2024 Assessment & Plan (1) Encephalopathy: (2) ESRD (end stage renal disease) on dialysis: (3) Chronic diastolic heart failure: (4) Rheumatoid arthritis: (5) Morbid obesity: (6) COPD (chronic obstructive pulmonary disease): Plan Patient is a 78-year-old female with past medical history of ESRD on hemodialysis, Parkinson's disease, hypothyroidism with multiple recent hospitalization presented to the hospital with altered mental status. It was i ncreasingly getting difficult for patient to undergo hemodialysis due to low blood pressure. Patient also refused hemodialysis. Palliative care consultation was done and patient was started on comfort care measures on 06/08/2024 Continue on comfort care measures with Dilaudid, Ativan, Haldol and Zofran. No further lab work or imaging to be done c/w scheduled Dilaudid for pain control CM working with on facility hospice I spent a total of 30 minutes coordinating, documenting and providing care for this patient excluding time spent in performance of separately billed services Admission and Anticipated Discharge Date Admission Date: June 04, 2024 Subjective Patient seen and examined Opens eye to touch but doses off again at bedside Physical Exam Constitutional: no acute distress Respiratory: Not in respiratory distress. Diminished breath sounds Cardiovascular: Rate/Rhythm: regular rate and regular rhythm Gastrointestinal (Abdomen): normal bowel sounds, soft, nontender, no hepatosplenomegaly Musculoskeletal: No pedal edema Neurologic: Opens eye to touch but quickly falls back to sleep (4) Rheumatoid arthritis Rheumatoid arthritis location: unspecified site Rheumatoid factor presence: unspecified presence Qualified Code(s): M06.9 - Rheumatoid arthritis, unspecified
--- NOTE | 2024-06-27 10:58 | Hospitalist Progress Note ---
Date of Service June 27, 2024 Assessment & Plan (1) Encephalopathy: (2) ESRD (end stage renal disease) on dialysis: (3) Chronic diastolic heart failure: (4) Rheumatoid arthritis: (5) Morbid obesity: (6) COPD (chronic obstructive pulmonary disease): Plan Patient is a 78-year-old female with past medical history of ESRD on hemodialysis, Parkinson's disease, hypothyroidism with multiple recent hospitalization presented to the hospital with altered mental status. It was i ncreasingly getting difficult for patient to undergo hemodialysis due to low blood pressure. Patient also refused hemodialysis. Palliative care consultation was done and patient was started on comfort care measures on 06/08/2024 Continue on comfort care measures with Dilaudid, Ativan, Haldol and Zofran. No further lab work or imaging to be done c/w scheduled Dilaudid for pain control CM working with on facility hospice I spent a total of 25 minutes coordinating, documenting and providing care for this patient excluding time spent in performance of separately billed services Admission and Anticipated Discharge Date Admission Date: June 04, 2024 Subjective Patient seen and examined Sleeping but opens eye to touch Physical Exam Constitutional: no acute distress Respiratory: Not in resp distress. Diminished breath sounds Cardiovascular: Rate/Rhythm: regular rate and regular rhythm Gastrointestinal (Abdomen): normal bowel sounds, soft, nontender, no hepatosplenomegaly Musculoskeletal: No pedal edema Neurologic: Opens eye to touch. Otherwise not responsive (4) Rheumatoid arthritis Rheumatoid arthritis location: unspecified site Rheumatoid factor presence: unspecified presence Qualified Code(s): M06.9 - Rheumatoid arthritis, unspecified
[2024-06-28] MEDS: HYDROmorphone INJ 0.5 MG/0.5 ML SYR IV PRN (09:47)
--- NOTE | 2024-06-28 11:21 | Hospitalist Progress Note ---
Date of Service June 28, 2024 Assessment & Plan (1) Encephalopathy: (2) ESRD (end stage renal disease) on dialysis: (3) Chronic diastolic heart failure: (4) Rheumatoid arthritis: (5) Morbid obesity: (6) COPD (chronic obstructive pulmonary disease): Plan 78-year-old female with past medical history of ESRD on hemodialysis, Parkinson's disease, hypothyroidism with multiple recent hospitalization presented to the hospital with altered mental status. It was increasingly g etting difficult for patient to undergo hemodialysis due to low blood pressure. Patient also refused hemodialysis. Palliative care consultation was done and patient was started on comfort care measures on 06/08/2024 Continue on comfort care measures with Dilaudid, Ativan, Haldol and Zofran. No further lab work or imaging to be done c/w scheduled Dilaudid for pain control Continue prn dilaudid and ativean CM working with on facility hospice I spent a total of 25 minutes coordinating, documenting and providing care for this patient excluding time spent in performance of separately billed services Admission and Anticipated Discharge Date Admission Date: June 04, 2024 Subjective Patient seen and examined Patient is unconscious, tachypneic Physical Exam Constitutional: + acute distress Unconscious Respiratory: Tachypneic, diminished breath sound Cardiovascular: Rate/Rhythm: regular rate and regular rhythm Gastrointestinal (Abdomen): normal bowel sounds, soft, nontender, no hepatosplenomegaly Neurologic: Unconscious Results & Data Results & Data Vital Signs (Past 12 Hours) Vital Signs O2 Del Method 06/28/24 08:10 Room Air (4) Rheumatoid arthritis Rheumatoid arthritis location: unspecified site Rheumatoid factor presence: unspecified presence Qualified Code(s): M06.9 - Rheumatoid arthritis, unspecified
[2024-06-28] MEDS: ATROPINE SULFATE 1% OP SOLN 5 ML BTL SL PRN (15:40)
[2024-06-28] MEDS: GLYCOPYRROLATE 0.2 MG/ML VIAL IV PRN (23:56)
--- NOTE | 2024-06-29 10:51 | Hospitalist Progress Note ---
Date of Service June 29, 2024 Assessment & Plan (1) Encephalopathy: (2) ESRD (end stage renal disease) on dialysis: (3) Chronic diastolic heart failure: (4) Rheumatoid arthritis: (5) Morbid obesity: (6) COPD (chronic obstructive pulmonary disease): Plan 78-year-old female with past medical history of ESRD on hemodialysis, Parkinson's disease, hypothyroidism with multiple recent hospitalization presented to the hospital with altered mental status. It was increasingly g etting difficult for patient to undergo hemodialysis due to low blood pressure. Patient also refused hemodialysis. Palliative care consultation was done and patient was started on comfort care measures on 06/08/2024 Continue on comfort care measures with Dilaudid, Ativan, Haldol and Zofran. No further lab work or imaging to be done CM working with on facility hospice I spent a total of 25 minutes coordinating, documenting and providing care for this patient excluding time spent in performance of separately billed services Admission and Anticipated Discharge Date Admission Date: June 04, 2024 Subjective Patient seen and examined Sleeping and difficult to arouse. Had just got iv meds not long ago per reports she has not eaten in the past few days Physical Exam Constitutional: Sleeping. Not in distress Respiratory: On room air. Diminished breath sounds Cardiovascular: Rate/Rhythm: regular rate and regular rhythm Gastrointestinal (Abdomen): normal bowel sounds, soft, nontender, no hepatosplenomegaly Musculoskeletal: No pedal edema Neurologic: Sleeping. Difficult to arouse Results & Data Results & Data Vital Signs (Past 12 Hours) Vital Signs O2 Del Method 06/29/24 07:20 Room Air (4) Rheumatoid arthritis Rheumatoid arthritis location: unspecified site Rheumatoid factor presence: unspecified presence Qualified Code(s): M06.9 - Rheumatoid arthritis, unspecified
--- NOTE | 2024-06-30 11:27 | Palliative Care Progress Note ---
Date of Service June 30, 2024 Assessment & Plan (1) Palliative care by specialist: Plan: Palliative care will continue to follow for ongoing EOL pt care and family support. Spouse at bedside, he shared that the pt has had minimal to no PO intake for past few days and she is sleeping most of time. Anticipatory guidance reinforced. Discussed changes pt may move through in the dying process including but not limited to sleeping more, disorientation when awake, restlessness, diminished senses/inability to respond to stimulus although ability to be aware of them remains intact longer, and changes in body temperatures, skin changes/mottling/cyanosis, respiratory pattern changes, and oral secretions. Family verbalized understanding. The goal is to assure a peaceful . (2) Comfort measures only status: Plan: transitioned to CHEMIST STEROIDS on 06/08/2024, has needed occasional PRN medications for comfort. (3) Need for comfort care: Plan: EOL Symptom manamgement: Pain/dyspnea/tachypnea dilaudid 0.5mg IVP PRN [id number] Consider titratable dilaudid drip if pt requires >3 PRN doses in under two consecutive hours. Nausea/vomitting zofran 4mg IVP q4h PRN Agitation ativan 0.5mg IVP q4h PRN Hyperactive delirium haldol 5mg IVP q6h PRN Secretions - if repositioning not effective robinul 0.4mg IV q4h PRN atropine SL 3 drops Q1h PRN Nursing care: Discontinue all medications not directed towards comfort. Detether pt from IV tubing, monitor cables, and check vitals once per shift. Please continue HFNC and titrate down as able for patient comfort. Use medications above PRN for dyspnea/tachypnea and do not increase oxygen once titrated down. Assess q1h for pain/dyspnea and treat accordingly. Plan as above Admission and Anticipated Discharge Date Admission Date: June 04, 2024 Subjective Assessed pt at bedside, She was transitioned to CHEMIST STEROIDS on . Pt is unresponsive to verbal and gentle tactile stimuli, did not attempt to aggressively awaken in concert with comfort directed care. She is exhibiting signs of more imminent with color changes and lethargy. Jaundiced skin, extremities cool to touch, respiratory effort increased, rate 24/min with occasional periods of apnea and expiratory grunting. Requested BSRN medicate pt for dyspnea. Spouse at bedside. Review of Systems Review of Systems: Unobtainable due to cognitive status Physical Exam Constitutional: + ill appearing and + morbidly obese Eyes: RONA, Sclera icteric ENMT: external ear and nose normal, oropharynx normal Neck: trachea midline, no thyromegaly Respiratory: normal respiratory effort, lungs clear to auscultation Cardiovascular: RRR, no murmur, no edema Gastrointestinal (Abdomen): normal bowel sounds, soft, nontender, no hepatosplenomegaly Musculoskeletal: CALLAHAN, no longer follows commands Skin: + jaundice extremities cool to touch Neurologic: Pt is sleeping soundly and did not awaken to verbal and gentle tactile stimuli, did not attempt to aggressively awaken in concert with comfort directed care. Results & Data Vital Signs (Past 12 Hours) Vital Signs O2 Del Method 06/30/24 08:00 Room Air Laboratory Results No further labs or diagnostics in concert with comfort directed care. Diagnostic Findings No further labs or diagnostics in concert with comfort directed care. Medications Administered Current Inpatient Medications Acetaminophen (Acetaminophen 325 Mg Tab) 650 mg PO Q4H PRN PRN Reason: Moderate Pain (Scale 4, 5, 6) Stop: 07/04/24 14:13 Last Admin: 06/09/24 19:28 Dose: 650 mg Albuterol (Albut/Ipratrop 3mg/0.5mg Neb 3 Ml Vial) 3 ml INH Q4 PRN; Protocol PRN Reason: Wheezing Stop: 07/04/24 13:22 Atropine Sulfate (Atropine Sulfate 1% Op Soln 5 Ml Btl) 4 drops SL Q1H PRN PRN Reason: Secretions or pulm congestion Stop: 07/08/24 13:52 Last Admin: 06/29/24 14:57 Dose: 4 drops Glycopyrrolate (Glycopyrrolate 0.2 Mg/Ml Vial) 0.4 mg IV Q4H PRN PRN Reason: Rattling Secretions or Pulm Congestion Stop: 07/08/24 13:52 Last Admin: 06/30/24 09:24 Dose: 0.4 mg Hydromorphone HCl (Hydromorphone Inj 0.5 Mg/0.5 Ml Syr) 0.5 mg IV Q6H BAYRON Stop: 07/14/24 15:14 Last Admin: 06/30/24 09:24 Dose: 0.5 mg Hydromorphone HCl (Hydromorphone Inj 0.5 Mg/0.5 Ml Syr) 0.5 mg IV Q15M PRN PRN Reason: Pain Stop: 07/07/24 09:43 Last Admin: 06/30/24 11:04 Dose: 0.5 mg Lorazepam (Lorazepam 2 Mg/1 Ml Vial) 1 mg IV Q4H PRN PRN Reason: Anxiety/Agitation Stop: 07/08/24 13:52 Last Admin: 06/30/24 07:58 Dose: 1 mg Nystatin (Nystatin Powder 15gm Btl) 1 appln EXT HS BAYRON Stop: 07/04/24 20:59 Last Admin: 06/30/24 03:34 Dose: Not Given Ondansetron HCl (Ondansetron Inj 2 Mg/Ml 2 Ml Vial) 4 mg IV Q4H PRN PRN Reason: Nausea &/or Vomiting Stop: 07/08/24 13:52 Ondansetron HCl (Ondansetron 4 Mg Od Tab) 4 mg PO Q6H PRN PRN Reason: Nausea Stop: 07/08/24 14:06 Pregabalin (Pregabalin 100 Mg Cap) 100 mg PO BID BAYRON Stop: 07/04/24 20:59 Last Admin: 06/05/24 00:12 Dose: Not Given PG Care Time/CCT Total # of Minutes Spent Total Time Spent with Patient: Total time spent is greater than 50% in coordination of care (as documented) at patient's floor/unit and/or counseling patient: [place]oding [place] [address] SUB INP/OBS CARE 2/35MIN Patient Type Established History Expanded Problem Focused Exam Expanded Problem Focused Medical Decision Making Moderate Complexity Diagnoses Palliative care by specialist Z51.5 Comfort measures only status Z51.5 Need for comfort care
[2024-06-30] MEDS ORDERED: HYDROmorphone BOLUS from BAG IV PRN (14:11)
[2024-06-30] MEDS ORDERED: STAT IV Infusion **Titration per Protocol STA (14:11)
[2024-06-30] MEDS: HYDROmorphone 100 MG/100 ML BAG IV SCH (14:50)
[2024-06-30] MEDS: HYDROmorphone BOLUS from BAG IV PRN (14:55)
--- NOTE | 2024-06-30 17:47 | Discharge Summary ---
Discharge Summary Date of Service June 30, 2024 Principal Dx & Hospital Course #1 = Principal Diagnosis (1) Encephalopathy: (2) ESRD (end stage renal disease) on dialysis: (3) Chronic diastolic heart failure: (4) Rheumatoid arthritis: (5) Morbid obesity: (6) COPD (chronic obstructive pulmonary disease): Plan 78-year-old female with past medical history of ESRD on hemodialysis, Parkinson's disease, hypothyroidism with multiple recent hospitalization presented to the hospital with altered mental status. It was increasingly getting difficult for patient to undergo hemodialysis due to low blood pressure. Patient also refused hemodialysis. Palliative care consultation was done and patient was started on comfort care measures on 06/08/2024 Continue on comfort care measures with Dilaudid, Ativan, Haldol and Zofran. No further lab work or imaging to be done CM working with on facility hospice I spent a total of 25 minutes coordinating, documenting and providing care for this patient excluding time spent in performance of separately billed services Admission HPI Per Admitting Provider This is a 78-year-old female with history of end-stage renal disease, Parkinson's, hypothyroidism, obstructive sleep apnea, orthostatic hypotension, who was has had multiple readmissions to this facility. She was most recently admitted to this facility from 05/21 to 05/27 and was treated for chest pain, volume overload, acute respiratory failure with hypoxia and ESRD. Palliative care was consulted during that time and patient agreed to DNR/DNI status but wanted to continue all care otherwise. She has completed a POLST. She was also seen for chest pain at that time and her initial troponin was 40 which down trended, today troponin is noted to be elevated at 71.9. She has previously been diagnosed with demand ischemia type II [place] in the setting of ESRD. She had a recent echocardiogram with septal motion consistent with conduction abnormality and mild LVH. She also had a CT angio of the chest done on 05/21 multifocal groundglass infiltrates in both lungs typical of nonspecific pneumonitis, these groundglass opacities are still present on CT today and are unchanged. Today RVP is negative. She did completes 5 days of cefepime and doxycycline during her most recent hospital stay. CT of the head today shows no acute intracranial abnormality. ABG is only positive for CO2 level of 51. Tried to get her to dialysis this morning and noted increased lethargy with waking up and opening eyes but is not responding verbally, BP was slightly lower this morning reported at 75/35 and she did take midodrine along with other morning medications. She has WBC elevated to 31 K and left shift compared to last admission which is concerning for infection and possibly pneumonia. Wesley, pts is present at bedside and supports the history. He does not have much information to add about her symptoms as he did not talk to the patient yesterday, and she has been a resident of [facility] for the past 2 weeks. He wants us to do what ever we can for her. We discussed palliative care consultation from last admission and he reports that they filled out a POLST form and she does not want cardiac resuscitation, no life prolonging measures, or extraordinary measures. I have asked escrow secretary to obtain this from nursing facility for confirmation. Kami wakes up to verbal stimuli and opens her eyes, but does not participate in discussion or follow any commands. Updated Medication List Medication Instructions Recorded Confirmed Type aspirin 81 mg tablet,delayed 162 mg PO [id number] 11/15/21 06/04/24 History release atorvastatin 80 mg tablet 80 mg PO QPM 11/15/21 06/04/24 History carbidopa 25 mg-levodopa 100 mg 1 tab PO TIDWMEAL 11/15/21 06/04/24 History tablet docusate sodium 100 mg capsule 100 mg PO DAILY 11/15/21 06/04/24 History (Colace) levothyroxine 125 mcg tablet 125 mcg PO QAM 11/15/21 06/04/24 History pregabalin 100 mg capsule 100 mg PO BID 11/15/21 06/04/24 History pantoprazole 20 mg tablet,delayed 20 mg PO BID 05/23/22 06/04/24 History release epinephrine 0.3 mg/0.3 mL 0.3 mg IM DIRECTED PRN 09/05/22 06/04/24 History injection, auto-injector (EpiPen) Anaphylaxis melatonin 10 mg tablet 10 mg PO HS 09/05/22 06/04/24 History ferric citrate 210 mg iron tablet 420 mg PO DIRECTED 01/21/23 06/04/24 History (Auryxia) fluticasone furoate 200 1 inh inhalation AMHS 01/21/23 06/04/24 History mcg-vilanterol 25 mcg/dose inhalation powder (Breo Ellipta) cholecalciferol (vitamin D3) 25 25 mcg PO DAILY 10/27/23 06/04/24 History mcg (1,000 unit) capsule vitamin B complex-vitamin C-folic 1 tab PO DAILY 10/27/23 06/04/24 History acid 0.8 mg tablet (Nanci-Samuel) acetaminophen 325 mg tablet 325 - 650 mg PO Q6 PRN MILD-SEVERE 05/06/24 06/04/24 History PAIN acetaminophen 500 mg tablet 500 mg PO QID Leg Pain 05/06/24 06/04/24 History diclofenac sodium 1 % topical gel 2 g topical QID 05/06/24 06/04/24 History escitalopram oxalate 10 mg tablet 10 mg PO QAM 05/06/24 06/04/24 History ferric citrate 210 mg iron tablet 210 mg PO DAILY PRN WITH SNACKS 05/06/24 06/04/24 History (Auryxia) ipratropium 0.5 mg-albuterol 3 mg 3 ml inhalation Q4 PRN Wheezing 05/06/24 06/04/24 History (2.5 mg base)/3 mL nebulization soln lidocaine-prilocaine 2.5 %-2.5 % 1 applic topical [id number] 05/06/24 06/04/24 History topical cream midodrine 5 mg tablet 5 mg PO DIRECTED 05/06/24 06/04/24 History ondansetron HCl 4 mg tablet 4 mg PO Q6H PRN Nausea And Vomiting 05/06/24 06/04/24 History bisacodyl 10 mg rectal suppository 10 mg UT DAILY PRN Constipation 06/04/24 06/04/24 History bisacodyl 5 mg tablet,delayed 5 mg PO DAILY PRN Constipation 06/04/24 06/04/24 History release menthol 0.44 %-zinc oxide 20.6 % 1 applic topical DAILY 06/04/24 06/04/24 History topical paste nystatin 100,000 unit/gram topical 1 applic topical HS 06/04/24 06/04/24 History powder Hospital Stay Data Consultations 06/04/24 10:34 ED Decision to Admit Stat 06/04/24 11:18 Consult Nephrology Routine 06/04/24 13:53 Consult Palliative Care Routine 06/05/24 17:09 Consult Gastroenterology Routine Diagnostic Imagining Performed 06/04/24 09:03 CT abd pelvis wo con Stat CT chest diagnostic wo con Stat CT head/brain wo con Stat
== END 2024-06-30 18:35 | disposition expired | DRG 871 ==
LOC: ED 07:14 → EDINP 11:18 → SUATTDRO 11:18 → 4W 15:29 → 3N 06-09 15:20
DX: J18.9 Pneumonia, unspecified organism; Z96.653 Presence of artificial knee joint, bilateral; F03.90 Unspecified dementia, unspecified severity, without behavioral disturbance, psychotic disturbance, mood disturbance, and anxiety; G93.41 Metabolic encephalopathy; E78.5 Hyperlipidemia, unspecified; I50.32 Chronic diastolic (congestive) heart failure; Z79.890 Hormone replacement therapy; Z99.3 Dependence on wheelchair; E11.9 Type 2 diabetes mellitus without complications; J44.9 Chronic obstructive pulmonary disease, unspecified; E66.01 Morbid (severe) obesity due to excess calories; M06.9 Rheumatoid arthritis, unspecified; Z99.2 Dependence on renal dialysis; N18.6 End stage renal disease; G47.33 Obstructive sleep apnea (adult) (pediatric); J96.01 Acute respiratory failure with hypoxia; I95.1 Orthostatic hypotension; E03.9 Hypothyroidism, unspecified; A41.9 Sepsis, unspecified organism; Z66 Do not resuscitate; E86.0 Dehydration; Z53.29 Procedure and treatment not carried out because of patient's decision for other reasons; G20.C Parkinsonism, unspecified; K92.2 Gastrointestinal hemorrhage, unspecified; Z51.5 Encounter for palliative care; I13.2 Hypertensive heart and chronic kidney disease with heart failure and with stage 5 chronic kidney disease, or end stage renal disease